=== PATIENT | male | born 1950 | race Caucasian/White ===

== ENCOUNTER 2023-07-09 14:20 | Emergency (ER) | payer MEDICARE, OTHER, SELFPAY ==
[2023-07-09] VITALS (16 sets, daily range): BP systolic 130–144; BP diastolic 71–86; PULSE 59–76; RESP 12–26; TEMP 36.6; O2SAT 95–99; BMI 33.2
--- NOTE | 2023-07-09 14:34 | XR_ITS ---
The [address] [address] Patient Name: YUSEF MELGAR MRN: [id number] date: 1950 Sex: M Assigned Patient Location: ED.MAIN Current Patient Location: ER Accession/Order Number: [id number] Exam Date: 07/09/2023 14:40 Report Date: 07/09/2023 15:04 At the request of: TRE FERNANDEZ Procedure: XR chest 1V EXAM: CHEST 1 VIEW HISTORY: bradycardia, TECHNIQUE: Chest, one view. COMPARISON: None. FINDINGS: Lungs are clear. No focal consolidation, pleural effusion, or pneumothorax. Pulmonary vasculature is within normal limits. There is aortic atherosclerosis. Heart size is normal. XR/XR chest 1V IMPRESSION: 1. No acute cardiopulmonary disease. Electronically authenticated by: LAMAR SMILEY Date: 07/09/2023 15:04
--- NOTE | 2023-07-09 14:34 | ECG_ITS ---
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
--- NOTE | 2023-07-09 14:37 | ED_ITS ---
HPI - Dizziness General Chief Complaint: Dizziness Stated Complaint: DIZZINESS Time Seen by Provider: 07/09/23 14:30 Source: patient Mode of arrival: Wheelchair History of Present Illness HPI Narrative: Patient suddenly became dizzy about an hour ago and his HR was noted to be as low as [address] to our ED. He has cardiac history and is concerned about his heart. No headache, visual changes, ringing in the ear. No recent injury to the head or neck and no recent vomiting or abdominal pain. He developed a little diarrhea after taking Augmentin for sinus infection this week. No prior history of dizziness associated with prior sinus infections or URIs. Related Data Home Medications Medication Instructions Recorded Confirmed allopurinol 300 mg tablet 300 mg PO DAILY 07/09/23 07/09/23 amlodipine 10 mg tablet 10 mg PO DAILY 07/09/23 07/09/23 bisoprolol fumarate 5 mg tablet 5 mg PO DAILY 07/09/23 07/09/23 fluticasone propionate 50 1 spray intranasal DAILY PRN 07/09/23 07/09/23 mcg/actuation nasal allergy symptoms spray,suspension (24 Hour Allergy Relief) furosemide 20 mg tablet 20 mg PO DAILY 07/09/23 07/09/23 glimepiride 4 mg tablet 4 mg PO BID 07/09/23 07/09/23 losartan 100 mg tablet 100 mg PO DAILY 07/09/23 07/09/23 omeprazole 40 mg capsule,delayed 40 mg PO DAILY 07/09/23 07/09/23 release pioglitazone 30 mg tablet 30 mg PO DAILY 07/09/23 07/09/23 rosuvastatin 10 mg tablet 10 mg PO DAILY 07/09/23 07/09/23 Allergies Allergy/AdvReac Type Severity Reaction Status Date / Time ciprofloxacin [From Cipro] Allergy Severe Verified 07/09/23 14:36 erythromycin base Allergy Severe Verified 07/09/23 14:36 lisinopril Allergy Severe Verified 07/09/23 14:36 Exam Narrative Exam Narrative: Nurses notes and vital signs reviewed and patient is not hypoxic. afebrile General: Well-appearing and in no apparent distress. Skin: Warm, dry, no pallor noted. No rash. Head: Normocephalic, atraumatic. Ears, Nose, Mouth, and Throat: Oral mucosa is moist Cardiovascular: Regular Rate and Rhythm without murmur, gallop or rub. Respiratory: No accessory muscle use or respiratory distress. Lungs are clear to auscultation, no wheezing, rales or rhonchi Musculoskeletal: normal ROM, no calf or popliteal tenderness, no lower extremity edema/swelling Neurological: A&O x4. No cranial nerve dysfunction observed. No truncal ataxia. Moves all extremities. Sensation intact. Psychiatric: Cooperative and interactive. Normal mood and affect. Constitutional Vital Signs, click to edit/add: Last Vital Signs Temp 97.9 F 07/09/23 14:28 Pulse 65 07/09/23 15:30 Resp 18 07/09/23 15:30 BP 135/71 07/09/23 14:58 Pulse Ox 96 07/09/23 14:50 O2 Del Method Room Air 07/09/23 14:28 Course Vital Signs Vital signs: Vital Signs Temperature 97.9 F 07/09/23 14:28 Pulse Rate 69 07/09/23 14:28 Respiratory Rate 16 07/09/23 14:28 Blood Pressure 140/72 07/09/23 14:28 Pulse Oximetry 99 07/09/23 14:28 Oxygen Delivery Method Room Air 07/09/23 14:28 Temperature 97.9 F 07/09/23 14:28 Pulse Rate 65 07/09/23 15:30 Respiratory Rate 18 07/09/23 15:30 Blood Pressure 135/71 07/09/23 14:58 Pulse Oximetry 96 07/09/23 14:50 Oxygen Delivery Method Room Air 07/09/23 14:28 MDM - Dizziness MDM Narrative Medical decision making narrative: Patient was placed on monitor and storage bin tender and EKG obtained. Blood drawn and sent for evaluation. CXR obtained. Orthostatics were negative. CBC normal. BMP notable for slightly elevated BUN and creatinine at 25 and 1.77. Normal troponin. BNP elevated just over 1700. CXR negative for acute cardiopulmonary abnormality. Patient informed of test results. Patient remained with HR greater than 60 in our ED and was without symtoms or complaint while being evaluated. Patient will call his PCP for followup - although he is likely changing groups since Dr Steele's replacement is leaving. He was also given cardiology follow up information. Discussed ED return if his symptomatic bradycardia returns. Lab Data Attestation: I reviewed the patient's lab results. Labs: Lab Results 07/09/23 Range/Units 14:37 WBC 10.1 (4.0-11.0) 10^3/uL RBC 4.32 L (4.70-6.10) 10^6/uL Hgb 12.4 L (14.0-18.0) g/dL Hct 39.3 L (42.0-54.0) % MCV 91.0 (80.0-94.0) fL MCH 28.7 (25.9-34.0) pg MCHC 31.6 (29.9-35.2) g/dL RDW 14.9 (11.0-15.0) % Plt Count 392 (150-450) 10^3/uL MPV 10.1 (9.5-13.5) fL Neut % (Auto) 78.3 H (43.0-75.0) % Lymph % (Auto) 13.1 L (20.5-60.0) % [place] % (Auto) 7.2 (1.7-12.0) % Eos % (Auto) 0.8 L (0.9-7.0) % Baso % (Auto) 0.3 (0.2-2.0) % Neut # (Auto) 7.9 H (1.4-6.5) 10^3/uL Lymph # (Auto) 1.3 (1.2-3.8) 10^3/uL [place] # (Auto) 0.7 (0.3-0.8) 10^3/uL Eos # (Auto) 0.1 (0.0-0.7) 10^3/uL Baso # (Auto) 0.0 (0.0-0.1) 10^3/uL Abs Immat Gran (auto) 0.03 (0.00-0.03) 10^3/uL Imm/Tot Granulo (auto) 0.3 (0.0-0.5) % Sodium 139 (136-145) mmol/L Potassium 4.5 (3.5-5.1) mmol/L Chloride 106 (98-107) mmol/L Carbon Dioxide 24.3 (21.0-32.0) mmol/L Anion Gap 13.2 BUN 25.0 H (7.0-18.0) mg/dL Creatinine 1.77 H (0.70-1.30) mg/dL Est GFR ( Amer) 46 L (>=60) Est GFR (Non-Af Amer) 38 L (>=60) BUN/Creatinine Ratio 14.1 Glucose 99 (74-106) mg/dL Calcium 8.8 (8.5-10.1) mg/dL Troponin I High Sens 9.6 (4.0-76.1) pg/mL NT-Pro-B Natriuret Pep 1733.0 H* (<=900.0) pg/mL Imaging Data Chest x-ray: Radiologist's impression: ITS Impressions Chest X-Ray 07/09/23 14:34 IMPRESSION: 1. No acute cardiopulmonary disease. Electronically authenticated by: LAMAR SMILEY Date: 07/09/2023 15:04 ECG Data Attestation: I personally reviewed and interpreted this ECG as follows: Interpretation: EKG interpretation: Emergency Department physician interpretation. Normal sinus rhythm at 66bpm. Normal axis, shortened RR interval. No ST segment elevation or depression. Discharge Plan Discharge Chief Complaint: Dizziness Clinical Impression: Dizziness, Paroxysmal cardiac arrhythmia, Bradycardia with 31-40 beats per minute Patient Disposition: Home, Self-Care Time of Disposition Decision: 16:02 Prescriptions / Home Meds: No Action allopurinol 300 mg tablet 300 mg PO DAILY amlodipine 10 mg tablet 10 mg PO DAILY bisoprolol fumarate 5 mg tablet 5 mg PO DAILY furosemide 20 mg tablet 20 mg PO DAILY glimepiride 4 mg tablet 4 mg PO BID losartan 100 mg tablet 100 mg PO DAILY omeprazole 40 mg capsule,delayed release(DR/EC) 40 mg PO DAILY pioglitazone 30 mg tablet 30 mg PO DAILY rosuvastatin 10 mg tablet 10 mg PO DAILY fluticasone propionate [24 Hour Allergy Relief] 50 mcg/actuation spray,suspension 1 spray intranasal DAILY PRN (Reason: allergy symptoms) Rx Instructions: administer into each nostril Instructions: Bradycardia (ED), Dizziness (ED) Stand Alone Forms: Portal Instructions Referrals: KIM ZAVALA [Physician] - As soon as possible
[2023-07-09 15:02] LABS: Basophils Percent Auto 0.3 % (0.2-2.0); Eosinophils Absolute Auto 0.1 10^3/uL (0.0-0.7); Eosinophils Percent Auto 0.8 % (0.9-7.0); Hematocrit 39.3 % (42.0-54.0); Hemoglobin 12.4 g/dL (14.0-18.0); Immature Granulocytes Abs Auto 0.03 10^3/uL (0.00-0.03); Immature Granulocytes Pct Auto 0.3 % (0.0-0.5); Lymphocytes Absolute Auto 1.3 10^3/uL (1.2-3.8); Lymphocytes Percent Auto 13.1 % (20.5-60.0); Mean Corpuscular HGB Conc 31.6 g/dL (29.9-35.2); Mean Corpuscular Hemoglobin 28.7 pg (25.9-34.0); Mean Platelet Volume 10.1 fL (9.5-13.5); Monocytes Absolute Auto 0.7 10^3/uL (0.3-0.8); Monocytes Percent Auto 7.2 % (1.7-12.0); Neutrophils Absolute Auto 7.9 10^3/uL (1.4-6.5); Neutrophils Percent Auto 78.3 % (43.0-75.0); Platelet Count 392 10^3/uL (150-450); Red Blood Count 4.32 10^6/uL (4.70-6.10); Red Cell Distribution Width 14.9 % (11.0-15.0); White Blood Count 10.1 10^3/uL (4.0-11.0)
[2023-07-09 15:18] LABS: Anion Gap 13.2; BUN Creatinine Ratio 14.1; Calcium 8.8 mg/dL (8.5-10.1); Carbon Dioxide 24.3 mmol/L (21.0-32.0); Chloride 106 mmol/L (98-107); Estimated GFR (African America 46 (>=60); Estimated GFR (Non-African Ame 38 (>=60); Glucose 99 mg/dL (74-106); Potassium 4.5 mmol/L (3.5-5.1); Sodium 139 mmol/L (136-145); Troponin I High Sensitivity 9.6 pg/mL (4.0-76.1)
== END 2023-07-09 16:13 | disposition home or self-care (01) ==
PROVIDERS: Emergency Provider Emergency Medicine; PCP Family Medicine
DX: R42 Dizziness and giddiness (principal); R00.1 Bradycardia, unspecified; Z79.899 Other long term (current) drug therapy
CPT/HCPCS: 36415; 71045; 80048; 83880; 84484; 85025; 93005; 99285

== ENCOUNTER 2023-07-09 21:04 | Observation (INO) | payer MEDICARE, OTHER, SELFPAY ==
[2023-07-09] VITALS (25 sets, daily range): BP systolic 140–175; BP diastolic 61–84; PULSE 68–94; RESP 10–30; TEMP 36.4; O2SAT 95–98; BMI 33.2
--- NOTE | 2023-07-09 21:32 | ECG_ITS ---
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
--- NOTE | 2023-07-09 21:39 | PC.NURSE ---
patient seen earier today for low heart rate. patient sent home. patient came back because of [employer] saying he had a low heart rate. denies chest pain or SOB. patient stated it felt like a fluttering but it has resolved
[2023-07-09 21:50] LABS: Basophils Percent Auto 0.3 % (0.2-2.0); Eosinophils Absolute Auto 0.1 10^3/uL (0.0-0.7); Eosinophils Percent Auto 1.1 % (0.9-7.0); Hematocrit 39.7 % (42.0-54.0); Hemoglobin 12.4 g/dL (14.0-18.0); Immature Granulocytes Abs Auto 0.03 10^3/uL (0.00-0.03); Immature Granulocytes Pct Auto 0.3 % (0.0-0.5); Lymphocytes Percent Auto 19.7 % (20.5-60.0); Mean Corpuscular HGB Conc 31.2 g/dL (29.9-35.2); Mean Corpuscular Hemoglobin 28.6 pg (25.9-34.0); Mean Corpuscular Volume 91.7 fL (80.0-94.0); Mean Platelet Volume 10.2 fL (9.5-13.5); Monocytes Absolute Auto 0.8 10^3/uL (0.3-0.8); Neutrophils Absolute Auto 7.3 10^3/uL (1.4-6.5); Neutrophils Percent Auto 70.6 % (43.0-75.0); Platelet Count 377 10^3/uL (150-450); Red Blood Count 4.33 10^6/uL (4.70-6.10); White Blood Count 10.3 10^3/uL (4.0-11.0)
[2023-07-09 22:08] LABS: Anion Gap 14.1; BUN Creatinine Ratio 15.4; Carbon Dioxide 24.5 mmol/L (21.0-32.0); Chloride 108 mmol/L (98-107); Estimated GFR (African America 51 (>=60); Estimated GFR (Non-African Ame 42 (>=60); Glucose 177 mg/dL (74-106); Potassium 4.6 mmol/L (3.5-5.1); Sodium 142 mmol/L (136-145); Troponin I High Sensitivity 9.7 pg/mL (4.0-76.1)
[2023-07-10] VITALS (21 sets, daily range): BP systolic 130–159; BP diastolic 70–86; PULSE 67–81; RESP 15–29; TEMP 36.3–36.7; O2SAT 95–98; BMI 34.3
--- OUTSIDE RECORDS SUMMARY | 2023-07-10 01:13 | XMS_ITS | CCD ---
Author Name Unknown Address [address] [place] [address] Organization [facility] Care Team Providers Care Lead Cargo Mover Name Role Phone PHYSICIAN, DEFAULT Admitting Unavailable PHYSICIAN, DEFAULT Attending Unavailable Vanessa Steele Unavailable [phone] Unavailable Unavailable CEDRIC, DR MENDEZ Primary Care Unavailable DONNA, DR HURLEY Consulting Unavailable DONNA, DR HURLEY Procedure Practitioner Unava ilSHAIKH Nick Admitting Unavailable SHAIKH ZUNIGA Attending Unavailable ROS, DR CINDI Ackerman Consulting Unavailable PAY, DR MCKINNON Consulting Unavailable RACHEAL ROSAS Consulting Unavailable CINDI RYAN Consulting Unavailable SHAIKH ZUNIGA Consulting Unavailable DONNA, DR HURLEY Consulting Unavailable DONNA, DR HURLEY Admitting Unavailable DONNA, DR HURLEY Attending Unavailable MIQUEL HAWKINS Primary Care Unavailable CEDRIC, DR MENDEZ Attending Unavailable CEDRIC, DR MENDEZ Admitting Unavailable JESUS, DR MARCELLO Charles Consulting Unavailable CEDRIC, DR MENDEZ Primary Care Unavailable CEDRIC, DR MENDEZ Consulting Unavailable MIQUEL HAWKINS Primary Care Unavailable DONNA, DR HURLEY Consulting Unavailable DONNA, DR HURLEY Admitting Unavailable DONNA, DR HURLEY Attending Unavailable CONCEPCION GEORGE Consulting Unavailable ROSMIQUEL OROZCO Consulting Unavailable Dr. Neftali Knowles Admitting Unavailable Benson, Dr. Neftali Cormier Attending Unavailable Vanessa Steele Primary Care Unavailabl e Petek, Ms. Lawson Attending Unavailable Rostocil, Ms. Jorge Referring Unavailable Vanessa Steele Primary Care Unavailabl e Petamina, Ms. Lawson Attending Unavailable Vanessa Steele Primary Care Unavailabl e Vanessa Steele Referring Unavailabl e Mohamed, Dr. Neftali Cormier Admitting Unavailable Mohpamela, Dr. Neftali Cormier Attending Unavailable Benson, Dr. Neftali Cormier Admitting Unavailable Mohpamela, Dr. Neftali Cormier Attending Unavailable Xavi Thompson Referring Unavailable Vanessa Steele Primary Care Unavailabl e Benson, Neftali Attending Unavailable Dinary, Fazel Admitting Unavailable Dinary, Fazel Attending Unavailable Cedric, Dr. Vanessa hWitley Referring Unavai Renea Duran DO Primary Care Provider [phone] RENEA YING Attending Unavailable NEFTALI STARR Attending Unavailab JAZLYN Palm Referring Unavailable RENEA YING Primary Care Unavailable SAM PADILLA Attending Unavailable JAZLYN MCARTHUR Referring Unavailable RENEA YING Primary Care Unavailable Allergies Allergy Classification Reported Allergen(s) Allergy Type Date of Onset Reaction(s) Facility Angiotensin Converting Enzyme (GODWIN) Inhibitors (3 sources) Lisinopril; Translations: [Lisinopril TABS] [facility]: Quinolones (antibiotic) (3 sources) Ciprofloxacin; Translations: [ciprofloxacin] [facility]: (16 sources) Ciprofloxacin; Translations: [ciprofloxacin] Drug Allergy 3 Unknown, Other [facility] (14 sources) Lisinopril; Translations: [Lisinopril TABS] Drug Allergy 3 Unknown, [facility] Work Phone: (3 sources) Amino Acids; Translations: [LISINOPRIL] Drug Allergy 1 [facility] (1 source) Ciprofloxacin Drug Allergy [facility] (1 source) Erythromycin Drug Allergy [facility] (6 sources) Erythromycin; Translations: [ERYTHROMYCIN] Drug Allergy 3 Unknown, GI bleeding [facility] Work Phone: Medications Current Medications Medication Drug Class(es) Dates Sig (Normalized) Sig (Original) allopurinol 300 mg oral tablet (17 sources) Xanthine Oxidase Inhibitor take 1 tablet by mouth once daily allopurinol (Zyloprim) 300 mg tablet Take 1 tablet (300 mg) by mouth once daily. 0 Active Allopurinol 300 MG Oral Tablet Quantity: 0 Refills: 0 Ordered: 08-Jan-2021 DO Active amLODIPine 10 mg oral tablet (17 sources) Dihydropyridine Calcium Channel Nancy take 1 tablet by mouth once daily amLODIPine (Norvasc) 10 mg tablet Take 1 tablet (10 mg) by mouth once daily. 0 Active amLODIPine Besyl ate 10 MG Oral Tablet Quantity: 0 Refills: 0 Ordered: 08-Jan-2021 DO Active bisoprolol fumarate 5 mg oral tablet (17 sources) beta-Adrenergic Nancy take 1 tablet by mouth once daily bisoprolol (Zebeta) 5 mg tablet Take 1 tablet (5 mg) by mouth once daily. 0 Active Bisoprolol Fumar ate 5 MG Oral Tablet Quantity: 0 Refills: 0 Ordered: 08-Jan-2021 DO Active fluticasone propionate (ArmonAir Digihaler) 55 mcg/actuation aero powdr breath act w/sensor (4 sources) fluticasone prop ionate (ArmonAir Digihaler) 55 mcg/actuation aero powdr breath act w/sensor Inhale 55 % once daily. 0 Active furosemide 20 mg oral tablet (17 sources) Loop Diuretic take 1 tablet by mouth once daily furosemide (Lasix) 20 mg tablet Take 1 tablet (20 mg) by mouth once daily. 0 Active Furosemide 20 MG Oral Tablet Quantity: 0 Refills: 0 Ordered: 08-Jan-2021 DO Active glimepiride 4 mg oral tablet (17 sources) Sulfonylurea take 1 tablet by mouth twice daily glimepiride (Amaryl) 4 mg tablet Take 1 tablet (4 mg) by mouth 2 times a day. 0 Active Glimepiride 4 MG Oral Tablet Quantity: 0 Refills: 0 Ordered: 08-Jan-2021 DO Active losartan potassium 100 mg oral tablet (17 sources) Angiotensin 2 Receptor Nancy take 1 tablet by mouth once daily losartan (Cozaar) 100 mg tablet Take 1 tablet (100 mg) by mouth once daily. 0 Active Losartan Potassi um 100 MG Oral Tablet Quantity: 0 Refills: 0 Ordered: 08-Jan-2021 DO Active omeprazole 40 mg delayed release oral capsule (20 sources) Proton Pump Inhibitor Start: 01-23-2021 take 1 capsule by mouth twice daily omeprazole (PriLOSEC) [address] capsule Take 1 capsule (40 mg) by mouth 2 times a day. 0 01/23/2021 Active Omeprazole 10 MG Oral Capsule Delayed Release Quantity: 0 Refills: 0 Ordered: 08-Jan-2021 DO Active pioglitazone 30 mg oral tablet (17 sources) Peroxisome Proliferator Receptor alpha Agonist, Peroxisome Proliferator Receptor gamma Agonist, Thiazolidinedione take 1 tablet by mouth once daily pioglitazone (Actos) 30 mg tablet Take 1 tablet (30 mg) by mouth once daily. 0 Active Pioglitazone HCl - 30 MG Oral Tablet Quantity: 0 Refills: 0 Ordered: 08-Jan-2021 DO Active rosuvastatin calcium 10 mg oral tablet (17 sources) HMG-CoA Reductase Inhibitor take 1 tablet by mouth once daily rosuvastatin (Crestor) 10 mg tablet Take 1 tablet (10 mg) by mouth once daily. 0 Active Rosuvastatin Lawson cium 10 MG Oral Tablet Quantity: 0 Refills: 0 Ordered: 08-Jan-2021 DO Active Completed/Discontinued Medications Medication Drug Class(es) Dates Sig (Normalized) Sig (Original) amoxicillin 875 mg / clavulanate 125 mg oral tablet (11 sources) Penicillin-class Antibacterial Start: 01-23-2021 take 1 tablet by mouth every twelve hours Amoxicillin-Pot Clavulanate 875-125 MG Oral Tablet TAKE 1 TABLET EVERY 12 HOURS UNTIL GONE. Quantity: 10 Refills: 0 Ordered: 23-Jan-2021 Irwin Batista MD Start : 23-Jan-2021 Active Fluticasone Propionate CREA (13 sources) Fluticasone Propionate CREA Quantity: 0 Refills: 0 Ordered: 08-Jan-2021 DO Active iohexol (OMNIPaque) 350 mg iodine/mL solution 75 mL (2 sources) Start: 05-26-2023 End: 05-26-2023 iohexol (OMNIPaque) 350 mg iodine/mL solution 75 mL simethicone 66.7 mg/ml oral suspension (2 sources) Start: 06-10-2023 End: 06-10-2023 simethicone (Mylicon) drops sucralfate 1000 mg oral tablet (11 sources) Aluminum Complex Start: 01-23-2021 take 1 tablet by mouth four times daily at bedtime Sucralfate 1 GM Oral Tablet TAKE 1 TABLET 4 TIMES DAILY, BEFORE MEALS AND AT BEDTIME. Quantity: 360 Refills: 2 Ordered: 01-May-2021 Irwin Batista MD Start : 23-Jan-2021 Active Problems Active Problems Problem Classification Problem Date Documented Date Episodic/Chronic Biliary tract disease (3 sources) Acute cholecystitis; Translations: [ACUTE CHOLECYSTITIS] Onset: 06-04-2021 Episodic Cancer of other GI organs; 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; 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] Onset: 04-29-2022 Chronic Diabetes mellitus without complication (2 sources) Type 2 diabetes mellitus without complications; Translations: [TYPE 2 DM WITHOUT COMPLICATIONS] Onset: 12-12-2020 Chronic Disorders of lipid metabolism (1 source) Hyperlipidemia, unspecified; Translations: [HYPERLIPIDEMIA UNSPECIFIED] Onset: 12-12-2020 Chronic Diverticulosis and diverticulitis (1 source) Diverticulosis of large intestine without perforation or abscess without bleeding; Translations: [DVRTCLOS LG INT NO PERF/ABSC W/O BL] Onset: 12-12-2020 Chronic Esophageal disorders (2 sources) Gastro-esophageal reflux disease without esophagitis; Translations: [GERD WITHOUT ESOPHAGITIS] Onset: 12-12-2020 Chronic Essential hypertension (2 sources) Essential (primary) hypertension; Translations: [ESSENTIAL PRIMARY HYPERTENSION] Onset: 12-12-2020 Chronic Gastritis and duodenitis (1 source) Unspecified chronic gastritis without bleeding; Translations: [Unspecified chronic gastritis without bleeding] Onset: 04-29-2022 Chronic Hyperplasia of prostate (13 sources) Benign prostatic hypertrophy with outflow obstruction; Translations: [Hypertrophy (benign) of prostate with urinary obstruction and other lower urinary tract symptoms (LUTS)] Chronic Malignant neoplasm without specification of site (20 sources) Primary malignant neuroendocrine neoplasm of duodenum; 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] Onset: 12-12-2020 Chronic Other aftercare (1 source) Other senior care (current) drug therapy; Translations: [OTH DATA ACQUISITION TECHNICIAN CURRENT DRUG THERAPY] Onset: 06-12-2021 Episodic Other and unspecified benign neoplasm (1 source) Benign carcinoid tumor of the duodenum; Translations: [Benign carcinoid tumor of the duodenum] Onset: 05-12-2022 Episodic Other disorders of stomach and duodenum (1 source) Other diseases of stomach and duodenum; Translations: [Other diseases of stomach and duodenum] Onset: 05-12-2022 Episodic Other liver diseases (2 sources) Liver disease, unspecified; Translations: [Liver disease, unspecified] Onset: 05-20-2021 Chronic Other liver diseases (1 source) Abnormal levels of other serum enzymes; Translations: [ABNORMAL LEVELS OTHER SERUM ENZYMES] Onset: 06-12-2021 Episodic Residual codes; unclassified (1 source) Personal history of other specified conditions; Translations: [PERSONAL HISTORY OTH SPEC CONDITION] Onset: 06-12-2021 Episodic Rheumatoid arthritis and related disease (1 source) Rheumatoid arthritis, unspecified; Translations: [Rheumatoid arthritis, unspecified] Onset: 04-29-2022 Chronic Septicemia (except in labor) (1 source) Other Gram-negative sepsis; Translations: [OTHER GRAM-NEGATIVE SEPSIS] Onset: 06-12-2021 Episodic Unclassified (1 source) CONTACT W/AND (SUSP) EXPOS COVID-19; Translations: [CONTACT W/AND (SUSP) EXPOS COVID-19] Onset: 06-12-2021 Unclassified (1 source) Gastric intestinal metaplasia, unspecified; Translations: [Gastric intestinal metaplasia, unspecified] Onset: 04-29-2022 Past or Other Problems Problem Classification Problem Date Documented Da te Episodic/Chronic Abdominal pain (5 sources) Right upper quadrant pain; Translations: [Unspecified abdominal pain] Onset: 06-18-2020 Episodic Cancer; other and unspecified primary (1 source) Personal history of malignant carcinoid tumor of small intestine; Translations: [Personal history of malignant carcinoid tumor of sm int] Onset: 04-29-2022 Episodic Deficiency and other anemia (1 source) Anemia, unspecified; Translations: [Anemia, unspecified] Onset: 04-29-2022 Episodic Gastrointestinal hemorrhage (1 source) Hemorrhage of anus and rectum; Translations: [HEMORRHAGE OF ANUS AND RECTUM] Onset: 12-12-2020 Episodic Other aftercare (2 sources) intermediate manager (current) use of oral hypoglycemic drugs; Translations: [DATA ACQUISITION TECHNICIAN USE ORAL HYPOGLYCEMIC DX] Onset: 12-12-2020 Episodic Other aftercare (2 sources) Encounter for follow-up examination after completed treatment for malignant neoplasm; Translations: [Encntr for follow-up exam after trtmt for malignant neoplasm] Onset: 04-29-2022 Episodic Other and unspecified benign neoplasm (1 source) Benign neoplasm of ascending colon; Translations: [BENIGN NEOPLASM OF ASCENDING COLON] Onset: 12-12-2020 Episodic Other and unspecified benign neoplasm (1 source) Polyp of colon; Translations: [POLYP OF COLON] Onset: 12-12-2020 Episodic Other and unspecified benign neoplasm (1 source) Polyp of stomach and duodenum; Translations: [Polyp of stomach and duodenum] Onset: 04-29-2022 Episodic Other gastrointestinal disorders (4 sources) Dysphagia, unspecified; Translations: [DYSPHAGIA UNSPECIFIED] Onset: 11-28-2020 Episodic Other screening for suspected conditions (not mental disorders or infectious disease) (15 sources) Patient encounter status; Translations: [Screening for malignant neoplasms of prostate] Onset: 06-12-2021 Episodic Screening and history of mental health and substance abuse codes (2 sources) Personal history of nicotine dependence; Translations: [PERSONAL HISTORY OF NICOTINE DEPEND] Onset: 06-12-2021 Episodic Results Test Name Value Interpretation Reference Range Facility [facility] 06-10-2023 Esophagogastroduodenosco py Table formatting from the original result was not included. Normal [facility] EGD Study observation Narrat osvaldo 06-10-2023 Table formatting fro m the original result was not included. Impression The 2nd part of the duodenum appeared normal. Single 8 mm nodule was visualized in the duodenal bulb; performed cold forceps biopsy with partial removal; placed 1 clip successfully 1 cm hiatal hernia The stomach appeared normal. Findings The 2nd part of the duodenum appeared normal. Single 8 mm nodule was visualized in the duodenal bulb; performed cold forceps biopsy with partial removal; placed 1 clip successfully (clip is MRI conditional). Patient with h/o duodenal NET s/p resection in 2020. 1 cm hiatal hernia The stomach appeared normal. Recommendation Await pathology results Based on the biopsy results you will need endoscopic ultrasound and possibly resection ( EMR) Follow up with the oncologist. Call with questions. Indication Primary malignant neuroendocrine neoplasm of duodenum (CMS/HCC) Staff Staff Role No Staff Documented Medications See Anesthesia Record. Preprocedure A history and physical has been performed, and patient medication allergies have been reviewed. The patient's tolerance of previous anesthesia has been reviewed. The risks and benefits of the procedure and the sedation options and risks were discussed with the patient. All questions were answered and informed consent obtained. Details of the Procedure The patient underwent monitored anesthesia care, which was administered by an anesthesia professional. The patient's blood pressure, ECG, ETCO2, heart rate, level of consciousness, oxygen and respirations were monitored throughout the procedure. The scope was introduced through the mouth and advanced to the second part of the duodenum. Retroflexion was performed in the cardia. The patient experienced no blood loss. The procedure was not difficult. The patient tolerated the procedure well. There were no apparent adverse events. Events Procedure Events Event Event Time ENDO SCOPE IN TIME 06/10/2023 8:54 AM ENDO SCOPE OUT TIME 06/10/2023 9:04 AM Specimens ID Type Source Tests Collected by Time 1 : NODULE Tissue DUODENAL BULB BIOPSY SURGICAL PATHOLOGY EXAM Mayelin Page 06/10/2023 0859 Procedure Location [facility] [id number] [facility] [id number] Referring Provider Jazlyn Mcarthur, [employer]-video operator [id number] [address] [place] [place] [address] Procedure Provider Sam Padilla MD [facility] Work Phone: [facility] Work Phone: Radiology Study observation (narrative) [facility] Work Phone: Glucose Test strip manual (B ld) [Mass/Vol]on 06-10-2023 Glucose [Mass/Vol] 113 mg/dL High 74-99 [facility] Comment on above: Performed By: #### [phone] #### OLIMPIA WARE ([id number]) [facility] ([facility]) [id number] [place] [phone] Glucose [Mass/Vol] 113 mg/dL High 74 - 99 mg/dL [facility] Interpretation and review of laboratory results Abnormal [facility] Surgical pathology studyon 1 08-11-2022 Surgical pathology study Pathology repor t.total SEE COMMENT Surgical Pathology Case: [id number] Authorizing Provider: Sam Padilla MD Collected: 06/10/2023 0859 Ordering Location: [facility] Received: 06/10/2023 0920 Pathologist: Chucho Santacruz MD Specimen: DUODENAL BULB BIOPSY, NODULE Path report.final diagnosis SEE COMMENT A. DUODENAL BULB BIOPSY: Fragments of small intestinal mucosa with no pathologic diagnosis Laboratory comment By the signature on this report, the individual or group listed as making the Final Interpretation/Diagnosis certifies that they have reviewed this case. Path report.gross observation SEE COMMENT Received in formalin, labeled with the patient's name and hospital number and 1 , is a fragment of deal, soft tissue measuring 0.4 x 0.3 x 0.2 cm. The specimen is submitted in toto in one cassette. [facility] CT Chest and Abdomen and Pel vis W contrast Kristie 05-27-2023 CHEST: 1. Nodule superior segment left lower lobe. Three-month follow-up noncontrast CT scanning is recommended as no prior studies are available. 2. No mediastinal or hilar lymphadenopathy. ABDOMEN-PELVIS: 1. No evidence of liver metastasis. 2. No ascites or retroperitoneal lymphadenopathy. 3. Hepatic steatosis. 4. Multiple left renal cysts with increase in size of a cyst in the upper pole lateral aspect. 5. 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 Signed by: Juanjose Walters 05/27/2023 11:47 AM Dictation workstation: [id number] MMODAL Interpreted By: Juanjose Jefferson, STUDY: CT CHEST ABDOMEN PELVIS W IV CONTRAST; 05/26/2023 10:16 am INDICATION: 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 COMPARISON: CT abdomen 12/25/2020 ACCESSION NUMBER(S): [id number] ORDERING CLINICIAN: JAZLYN MCARTHUR TECHNIQUE: Contiguous axial CT images were obtained at 3mm slice thickness through the chest, abdomen and pelvis following intravenous contrast administration. Coronal and sagittal reconstructions at 3 mm slice thickness were then performed. 75 mL Omnipaque 350 were administered without immediate complication. FINDINGS: Restaging scan CHEST: CHEST WALL AND LOWER NECK: Evaluation of the visualized neck base demonstrates no gross mass or lymphadenopathy. MEDIASTINUM AND KEYONA: There is no gross axillary, keyona or mediastinal lymphadenopathy identified. HEART: The heart is within normal limits for size. No pericardial effusion is identified. Scattered atherosclerotic calcifications are seen in the coronary arteries. VESSELS: The thoracic aorta is normal in size, with calcification in the aortic arch. Pulmonary arteries are normal in size. LUNG/PLEURA/LARGE AIRWAYS: The trachea and central bronchi are normal in size. No atelectasis, consolidation or effusion. A 7 mm nodule is seen, in the superior segment of the left lower lobe at sagittal image 91 and axial image 118/281. Only comparison study available is a PET-CT study of 01/11/2021, where resolution is not as good as the present CT study, but no nodule is discernible on that examination. ABDOMEN: LIVER: Decreased density is seen throughout the liver consistent with hepatic steatosis. No focal hepatic mass lesion. BILE DUCTS: No intra or extrahepatic biliary dilatation is identified. GALLBLADDER: Surgically absent. PANCREAS: The pancreas is within normal limits for appearance, without evidence of focal masses. SPLEEN: The spleen is normal in size. No focal splenic mass is seen. ADRENAL GLANDS: The right adrenal is normal in size and shape. There is a known nodule, in the left adrenal measuring 1.4 x 1.5 cm known to be an adenoma by a prior MRI scan. No change in size of this nodule from the previous examination of 12/25/2020. KIDNEYS AND URETERS: Multiple left simple renal cysts are present. Increase in size of a cyst is seen in the lateral aspect of the upper pole measuring about 4.4 cm in size compared to 2.2 cm previously. The ureters are normal in caliber. PELVIS: BLADDER: The urinary bladder is not adequately distended. REPRODUCTIVE ORGANS: The prostate is within normal limits for appearance. BOWEL: Marked diverticulosis of the sigmoid colon is present without diverticulitis. The colon and small bowel are within normal limits for course, caliber and appearance, without evidence of wall thickening or obstruction. The appendix is not visualized. VESSELS: Scattered atherosclerotic calcifications are seen throughout the infrarenal abdominal aorta and iliac arteries. The no aneurysm. The IVC is unremarkable. PERITONEUM/RETROPERITONEU M/LYMPH NODES: There is no free intraperitoneal air or free fluid identified. No gross mesenteric or retroperitoneal lymphadenopathy is identified. A 1.5 cm left external iliac lymph node is unchanged in size and shape from 01/11/2021. BONE AND SOFT TISSUE: No aggressive bone lesion. Degenerative changes of the lumbar spine and the sacroiliac joints are present. A small fat containing umbilical hernia is present. [facility] MM[facility]AL Juanjose Walters MD - 05/27/2023 Interpreted By: Juanjose Walters, STUDY: CT CHEST ABDOMEN PELVIS W IV CONTRAST; 05/26/2023 10:16 am INDICATION: 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 COMPARISON: CT abdomen 12/25/2020 ACCESSION NUMBER(S): [id number] ORDERING CLINICIAN: JAZLYN MCARTHUR TECHNIQUE: Contiguous axial CT images were obtained at 3mm slice thickness through the chest, abdomen and pelvis following intravenous contrast administration. Coronal and sagittal reconstructions at 3 mm slice thickness were then performed. 75 mL Omnipaque 350 were administered without immediate complication. FINDINGS: Restaging scan CHEST: CHEST WALL AND LOWER NECK: Evaluation of the visualized neck base demonstrates no gross mass or lymphadenopathy. MEDIASTINUM AND KEYONA: There is no gross axillary, keyona or mediastinal lymphadenopathy identified. HEART: The heart is within normal limits for size. No pericardial effusion is identified. Scattered atherosclerotic calcifications are seen in the coronary arteries. VESSELS: The thoracic aorta is normal in size, with calcification in the aortic arch. Pulmonary arteries are normal in size. LUNG/PLEURA/LARGE AIRWAYS: The trachea and central bronchi are normal in size. No atelectasis, consolidation or effusion. A 7 mm nodule is seen, in the superior segment of the left lower lobe at sagittal image 91 and axial image 118/281. Only comparison study available is a PET-CT study of 01/11/2021, where resolution is not as good as the present CT study, but no nodule is discernible on that examination. ABDOMEN: LIVER: Decreased density is seen throughout the liver consistent with hepatic steatosis. No focal hepatic mass lesion. BILE DUCTS: No intra or extrahepatic biliary dilatation is identified. GALLBLADDER: Surgically absent. PANCREAS: The pancreas is within normal limits for appearance, without evidence of focal masses. SPLEEN: The spleen is normal in size. No focal splenic mass is seen. ADRENAL GLANDS: The right adrenal is normal in size and shape. There is a known nodule, in the left adrenal measuring 1.4 x 1.5 cm known to be an adenoma by a prior MRI scan. No change in size of this nodule from the previous examination of 12/25/2020. KIDNEYS AND URETERS: Multiple left simple renal cysts are present. Increase in size of a cyst is seen in the lateral aspect of the upper pole measuring about 4.4 cm in size compared to 2.2 cm previously. The ureters are normal in caliber. PELVIS: BLADDER: The urinary bladder is not adequately distended. REPRODUCTIVE ORGANS: The prostate is within normal limits for appearance. BOWEL: Marked diverticulosis of the sigmoid colon is present without diverticulitis. The colon and small bowel are within normal limits for course, caliber and appearance, without evidence of wall thickening or obstruction. The appendix is not visualized. VESSELS: Scattered atherosclerotic calcifications are seen throughout the infrarenal abdominal aorta and iliac arteries. The no aneurysm. The IVC is unremarkable. PERITONEUM/RETROPERITONEU M/LYMPH NODES: There is no free intraperitoneal air or free fluid identified. No gross mesenteric or retroperitoneal lymphadenopathy is identified. A 1.5 cm left external iliac lymph node is unchanged in size and shape from 01/11/2021. BONE AND SOFT TISSUE: No aggressive bone lesion. Degenerative changes of the lumbar spine and the sacroiliac joints are present. A small fat containing umbilical hernia is present. IMPRESSION: CHEST: 1. Nodule superior segment left lower lobe. Three-month follow-up noncontrast CT scanning is recommended as no prior studies are available. 2. No mediastinal or hilar lymphadenopathy. ABDOMEN-PELVIS: 1. No evidence of liver metastasis. 2. No ascites or retroperitoneal lymphadenopathy. 3. Hepatic steatosis. 4. Multiple left renal cysts with increase in size of a cyst in the upper pole lateral aspect. 5. 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 COMPARISON: CT abdomen 12/25/2020 ACCESSION NUMBER(S): [id number] ORDERING CLINICIAN: JAZLYN MCARTHUR TECHNIQUE: Contiguous axial CT images were obtained at 3mm slice thickness through the chest, abdomen and pelvis following intravenous contrast administration. Coronal and sagittal reconstructions at 3 mm slice thickness were then performed. 75 mL Omnipaque 350 were administered without immediate complication. FINDINGS: Restaging scan CHEST: CHEST WALL AND LOWER NECK: Evaluation of the visualized neck base demonstrates no gross mass or lymphadenopathy. MEDIASTINUM AND KEYONA: There is no gross axillary, keyona or mediastinal lymphadenopathy identified. HEART: The heart is within normal limits for size. No pericardial effusion is identified. Scattered atherosclerotic calcifications are seen in the coronary arteries. VESSELS: The thoracic aorta is normal in size, with calcification in the aortic arch. Pulmonary arteries are normal in size. LUNG/PLEURA/LARGE AIRWAYS: The trachea and central bronchi are normal in size. No atelectasis, consolidation or effusion. A 7 mm nodule is seen, in the superior segment of the left lower lobe at sagittal image 91 and axial image 118/281. Only comparison study available is a PET-CT study of 01/11/2021, where resolution is not as good as the present CT study, but no nodule is discernible on that examination. ABDOMEN: LIVER: Decreased density is seen throughout the liver consistent with hepatic steatosis. No focal hepatic mass lesion. BILE DUCTS: No intra or extrahepatic biliary dilatation is identified. GALLBLADDER: Surgically absent. PANCREAS: The pancreas is within normal limits for appearance, without evidence of focal masses. SPLEEN: The spleen is normal in size. No focal splenic mass is seen. ADRENAL GLANDS: The right adrenal is normal in size and shape. There is a known nodule, in the left adrenal measuring 1.4 x 1.5 cm known to be an adenoma by a prior MRI scan. No change in size of this nodule from the previous examination of 12/25/2020. KIDNEYS AND URETERS: Multiple left simple renal cysts are present. Increase in size of a cyst is seen in the lateral aspect of the upper pole measuring about 4.4 cm in size compared to 2.2 cm previously. The ureters are normal in caliber. PELVIS: BLADDER: The urinary bladder is not adequately distended. REPRODUCTIVE ORGANS: The prostate is within normal limits for appearance. BOWEL: Marked diverticulosis of the sigmoid colon is present without diverticulitis. The colon and small bowel are within normal limits for course, caliber and appearance, without evidence of wall thickening or obstruction. The appendix is not visualized. VESSELS: Scattered atherosclerotic calcifications are seen throughout the infrarenal abdominal aorta and iliac arteries. The no aneurysm. The IVC is unremarkable. PERITONEUM/RETROPERITONEU M/LYMPH NODES: There is no free intraperitoneal air or free fluid identified. No gross mesenteric or retroperitoneal lymphadenopathy is identified. A 1.5 cm left external iliac lymph node is unchanged in size and shape from 01/11/2021. BONE AND SOFT TISSUE: No aggressive bone lesion. Degenerative changes of the lumbar spine and the sacroiliac joints are present. A small fat containing umbilical hernia is present. IMPRESSION: CHEST: 1. Nodule superior segment left lower lobe. Three-month follow-up noncontrast CT scanning is recommended as no prior studies are available. 2. No mediastinal or hilar lymphadenopathy. ABDOMEN-PELVIS: 1. No evidence of liver metastasis. 2. No ascites or retroperitoneal lymphadenopathy. 3. Hepatic steatosis. 4. Multiple left renal cysts with increase in size of a cyst in the upper pole lateral aspect. 5. 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 Signed by: Juanjose Walters 05/27/2023 11:47 AM Dictation workstation: [id number] Normal [facility] CT Chest and Abdomen and Pel vis W contrast Kristie 05-26-2023 Radiology Study observation (narrative) [facility] Work Phone: CBC W Auto Differential pane l (Bld)on 05-22-2023 Basophils (Bld) [#/Vol] 0.04 x10*3/uL Normal 0.00-0.10 [facility] Comment on above: Performed By: #### 5 7021-8 #### OLIMPIA WARE ([id number]) [facility] ([facility]) [address] [place] [address] Basophils/100 WBC (Bld) 0.5 % Normal 0.0-2.[address] [facility] Comment on above: Performed By: #### 5 7021-8 #### OLIMPIA WARE ([id number]) [facility] ([facility]) [address] [place] [address] Eosinophils (Bld) [#/Vol] 0.09 x10*3/uL Normal 0.00-0.40 [facility] Comment on above: Performed By: #### 5 7021-8 #### OLIMPIA WARE ([id number]) [facility] ([facility]) [id number] [place] [address] Eosinophils/100 WBC (Bld) 1.0 % Normal 0.0-6.0 [facility] Comment on above: Performed By: #### 5 7021-8 #### OLIMPIA WARE ([id number]) [facility] ([facility]) [id number] [place] [address] Erythrocyte distribution width (RBC) [Ratio] 15.3 % High 11.5-14.5 [facility] Comment on above: Performed By: #### 5 7021-8 #### OLIMPIA WARE ([id number]) [facility] ([facility]) [address] [place] [address] Hematocrit (Bld) [Volume fraction] 40.4 % Low 41.0-52.0 [facility] Comment on above: Performed By: #### 5 7021-8 #### OLIMPIA WARE ([id number]) [facility] ([facility]) [id number] [place], [place] [id number] Hemoglobin (Bld) [Mass/Vol] 12.7 g/dL Low 13.5-17.5 [facility] Comment on above: Performed By: #### 5 7021-8 #### OLIMPIA WARE ([id number]) [facility] ([facility]) [address] [place] [address] Immature granulocytes (Bld) [#/Vol] 0.04 x10*3/uL Normal 0.00-0.50 [facility] Comment on above: Performed By: #### 5 7021-8 #### OLIMPIA WARE ([id number]) [facility] ([facility]) [address] [place] [address] Immature granulocytes/100 WBC (Bld) 0.5 % Normal 0.0-0.9 [facility] Comment on above: Result Comment: Halima ture Granulocyte Count (IG) includes promyelocytes, myelocytes and metamyelocytes but does not include bands. Percent differential counts (%) should be interpreted in the context of the absolute cell counts (cells/UL). Performed By: #### 5 7021-8 #### OLIMPIA WARE ([id number]) [facility] ([facility]) [address] [place] [address] Lymphocytes (Bld) [#/Vol] 1.47 x10*3/uL Normal 0.80-3.00 [facility] Comment on above: Performed By: #### 5 7021-8 #### OLIMPIA WARE ([id number]) [facility] ([facility]) [address] [place] [address] Lymphocytes/100 WBC (Bld) 17.0 % Normal 13.0-44.0 [facility] Comment on above: Performed By: #### 5 7021-8 #### OLIMPIA WARE ([id number]) [facility] ([facility]) [address] [place] [address] MCH (RBC) [Entitic mass] 28.5 pg Normal 26.0-34.0 [facility] Comment on above: Performed By: #### 5 7021-8 #### OLIMPIA WARE ([id number]) [facility] ([facility]) [address] [place] [address] MCHC (RBC) [Mass/Vol] 31.4 g/dL Low 32.0-36.0 [facility] Comment on above: Performed By: #### 5 7021-8 #### OLIMPIA WARE ([id number]) [facility] ([facility]) [address] [place] [address] MCV (RBC) [Entitic vol] 91 fL Normal 80-100 [facility] Comment on above: Performed By: #### 5 7021-8 #### OLIMPIA WARE ([id number]) [facility] ([facility]) [address] [place] [address] Monocytes (Bld) [#/Vol] 0.54 x10*3/uL Normal 0.05-0.80 [facility] Comment on above: Performed By: #### 5 7021-8 #### OLIMPIA WARE ([id number]) [facility] ([facility]) [address] [place] [address] Monocytes/100 WBC (Bld) 6.2 % Normal 2.0-10.[address] [facility] Comment on above: Performed By: #### 5 7021-8 #### OLIMPIA WARE ([id number]) [facility] ([facility]) [address] [place] [address] Neutrophils (Bld) [#/Vol] 6.48 x10*3/uL High 1.60-5.50 [facility] Comment on above: Result Comment: Perc ent differential counts (%) should be interpreted in the context of the absolute cell counts (cells/uL). Performed By: #### 5 7021-8 #### OLIMPIA WARE ([id number]) [facility] ([facility]) [address] [place] [address] Neutrophils/100 WBC (Bld) 74.8 % Normal 40.0-80.0 [facility] Comment on above: Performed By: #### 5 7021-8 #### OLIMPIA WARE ([id number]) [facility] ([facility]) [address] [place] [address] Nucleated RBC/100 WBC (Bld) [Ratio] 0.0 /100 WBCs Normal 0.0-0.0 [facility] Comment on above: Performed By: #### 5 7021-8 #### OLIMPIA WARE ([id number]) [facility] ([facility]) [address] [place] [address] Platelets (Bld) [#/Vol] 403 x10*3/uL Normal 150-450 [facility] Comment on above: Performed By: #### 5 7021-8 #### OLIMPIA WARE ([id number]) [facility] ([facility]) [address] [place] [address] RBC (Bld) [#/Vol] 4.46 x10*6/uL Low 4.50-5.90 [facility] Comment on above: Performed By: #### 5 7021-8 #### OLIMPIA WARE ([id number]) [facility] ([facility]) [address] [place] [address] WBC (Bld) [#/Vol] 8.7 x10*3/uL Normal 4.4-11.3 [facility] Comment on above: Performed By: #### 5 7021-8 #### OLIMPIA WARE ([id number]) [facility] ([facility]) [address] [place] [address] Comprehensive metabolic 2000 panelon 05-22-2023 Albumin BCP dye [Mass/Vol] 4.1 g/dL Normal 3.4-5.0 [facility] Comment on above: Performed By: #### 2 4323-8 #### OLIMPIA WARE ([id number]) [facility] ([facility]) [address] [place] [address] ALP [Catalytic activity/Vol] 73 U/L Normal 33-136 [facility] Comment on above: Performed By: #### 2 4323-8 #### OLIMPIA WARE ([id number]) [facility] ([facility]) [address] [place] [address] ALT With P-5'-P [Catalytic activity/Vol] 8 U/L Low 10-52 [facility] Comment on above: Result Comment: Kanwal ents treated with Sulfasalazine may generate falsely decreased results for ALT. Performed By: #### 2 4323-8 #### OLIMPIA WARE ([id number]) [facility] ([facility]) [address] [place] [address] Anion gap [Moles/Vol] 12 mmol/L Normal 10-20 [facility] Comment on above: Performed By: #### 2 4323-8 #### OLIMPIA WARE ([id number]) [facility] ([facility]) [address] [place] [address] AST With P-5'-P [Catalytic activity/Vol] 10 U/L Normal 9-39 [facility] Comment on above: Performed By: #### 2 4323-8 #### OLIMPIA WARE ([id number]) [facility] ([facility]) [address] [place] [address] Bilirubin [Mass/Vol] 0.6 mg/dL Normal 0.0-1.2 [facility] Comment on above: Performed By: #### 2 4323-8 #### OLIMPIA WARE ([id number]) [facility] ([facility]) [address] [place] [address] Calcium [Mass/Vol] 9.2 mg/dL Normal 8.6-10.[address] [facility] Comment on above: Performed By: #### 2 4323-8 #### OLIMPIA WARE ([id number]) [facility] ([facility]) [address] [place] [address] Chloride [Moles/Vol] 105 mmol/L Normal 98-107 [facility] Comment on above: Performed By: #### 2 4323-8 #### OLIMPIA WARE ([id number]) [facility] ([facility]) [address] [place] [address] CO2 [Moles/Vol] 25 mmol/L Normal 21-32 [facility] Comment on above: Performed By: #### 2 4323-8 #### OLIMPIA WARE ([id number]) [facility] ([facility]) [address] [place] [address] Creatinine [Mass/Vol] 1.27 mg/dL Normal 0.50-1.30 [facility] Comment on above: Performed By: #### 2 4323-8 #### OLIMPIA WARE ([id number]) [facility] ([facility]) [address] [place] [address] GFR/1.73 sq M.predicted MDRD (S/P/Bld) [Vol rate/Area] 59 mL/min/1.73m*2 Low >60 [facility] Comment on above: Result Comment: Calc ulations of estimated GFR are performed using the 2020 CKD-EPI Study Refit equation without the race variable for the IDMS-Traceable creatinine methods. https://jasn.asnjournals.org/content/early//ASN.711 7337836 Performed By: #### 2 4323-8 #### OLIMPIA WARE ([id number]) [facility] ([facility]) [address] [place] [address] Glucose [Mass/Vol] 140 mg/dL High 74-[address] [facility] Comment on above: Performed By: #### 2 4323-8 #### OLIMPIA WARE ([id number]) [facility] ([facility]) [address] [place] [address] Potassium [Moles/Vol] 4.3 mmol/L Normal 3.5-5.3 [facility] Comment on above: Performed By: #### 2 4323-8 #### OLIMPIA WARE ([id number]) [facility] ([facility]) [address] [place] [address] Protein [Mass/Vol] 6.5 g/dL Normal 6.4-8.[address] [facility] Comment on above: Performed By: #### 2 4323-8 #### OLIMPIA WARE ([id number]) [facility] ([facility]) [address] [place] [address] Sodium [Moles/Vol] 138 mmol/L Normal 136-[address] [facility] Comment on above: Performed By: #### 2 4323-8 #### OLIMPIA WARE ([id number]) [facility] ([facility]) [address] [place] [address] Urea nitrogen [Mass/Vol] 24 mg/dL High 6-23 [facility] Comment on above: Performed By: #### 2 4323-8 #### OLIMPIA WARE ([id number]) [facility] ([facility]) [address] [place] [address] CBC AND DIFFERENTIALon 05-12 % AUTOMATED IMMATURE GRAN Canceled Normal [facility] Comment on above: Order Comment: TEST CBC AND DIFFERENTIAL WAS CANCELLED, 05/12/2022 10:[address] ciaran mcmanus needed. Result Comment: Halima ture Granulocyte Count (IG) includes promyelocytes, myelocytes and metamyelocytes but does not include bands. Percent differential counts (%) should be interpreted in the context of the absolute cell counts (cells/L). Performed By: #### C BCDF #### [address] [place] [address] % BASOPHIL Canceled Normal [facility] Comment on above: Order Comment: TEST CBC AND DIFFERENTIAL WAS CANCELLED, 05/12/2022 10:[address] ciaran mcmanus needed. Performed By: #### C BCDF #### [address] [place] [address] % EOSINOPHIL Canceled Normal [facility] Comment on above: Order Comment: TEST CBC AND DIFFERENTIAL WAS CANCELLED, 05/12/2022 10:[address] ciaran mcmanus needed. Performed By: #### C BCDF #### [address] [place] [address] % LYMPHOCYTE Canceled Normal [facility] Comment on above: Order Comment: TEST CBC AND DIFFERENTIAL WAS CANCELLED, 05/12/2022 10:[address] ciaran mcmanus needed. Performed By: #### C BCDF #### [address] [place] [address] % MONOCYTE Canceled Normal [facility] Comment on above: Order Comment: TEST CBC AND DIFFERENTIAL WAS CANCELLED, 05/12/2022 10:[address] ciaran mcmanus needed. Performed By: #### C BCDF #### [address] [place] [address] % NEUTROPHIL Canceled Normal [facility] Comment on above: Order Comment: TEST CBC AND DIFFERENTIAL WAS CANCELLED, 05/12/2022 10:[address] ciaran mcmanus needed. Performed By: #### C BCDF #### [address] [place] [address] BASOPHIL Canceled Normal [facility] Comment on above: Order Comment: TEST CBC AND DIFFERENTIAL WAS CANCELLED, 05/12/2022 10:[address] ciaran mcmanus needed. Performed By: #### C BCDF #### [address] [place] [address] DIFFERENTIAL Canceled Normal [facility] Comment on above: Order Comment: TEST CBC AND DIFFERENTIAL WAS CANCELLED, 05/12/2022 10:[address] ciaran mcmanus needed. Performed By: #### C BCDF #### [address] [place] [address] EOSINOPHIL Canceled Normal [facility] Comment on above: Order Comment: TEST CBC AND DIFFERENTIAL WAS CANCELLED, 05/12/2022 10:[address] ciaran mcmanus needed. Performed By: #### C BCDF #### [address] [place] [address] HCT Canceled Normal [facility] Comment on above: Order Comment: TEST CBC AND DIFFERENTIAL WAS CANCELLED, 05/12/2022 10:[address] ciaran mcmanus needed. Performed By: #### C BCDF #### [address] [place] [address] HGB Canceled Normal [facility] Comment on above: Order Comment: TEST CBC AND DIFFERENTIAL WAS CANCELLED, 05/12/2022 10:[address] mohmand doesnot needed. Performed By: #### C BCDF #### [address] [place] [address] LYMPHOCYTE Canceled Normal [facility] Comment on above: Order Comment: TEST CBC AND DIFFERENTIAL WAS CANCELLED, 05/12/2022 10:[address] ciaran mcmanus needed. Performed By: #### C BCDF #### [address] [place] [address] MCHC Canceled Normal [facility] Comment on above: Order Comment: TEST CBC AND DIFFERENTIAL WAS CANCELLED, 05/12/2022 10:[address] ciaran mcmanus needed. Performed By: #### C BCDF #### [address] [place] [address] MCV Canceled Normal [facility] Comment on above: Order Comment: TEST CBC AND DIFFERENTIAL WAS CANCELLED, 05/12/2022 10:[address] ciaran mcmanus needed. Performed By: #### C BCDF #### [address] [place] [address] MONOCYTE Canceled [facility] Comment on above: Order Comment: TEST CBC AND DIFFERENTIAL WAS CANCELLED, 05/12/2022 10:[address] ciaran mcmanus needed. Performed By: #### C BCDF #### [address] [place] [address] NEUTROPHIL Canceled Normal [facility] Comment on above: Order Comment: TEST CBC AND DIFFERENTIAL WAS CANCELLED, 05/12/2022 10:[address] ciaran mcmanus needed. Performed By: #### C BCDF #### [address] [place] [address] PLT Canceled Normal [facility] Comment on above: Order Comment: TEST CBC AND DIFFERENTIAL WAS CANCELLED, 05/12/2022 10:[address] ciaran mcmanus needed. Performed By: #### C BCDF #### [address] [place] [address] RBC Canceled Normal [facility] Comment on above: Order Comment: TEST CBC AND DIFFERENTIAL WAS CANCELLED, 05/12/2022 10:[address] ciaran mcmanus needed. Performed By: #### C BCDF #### [address] [place] [address] RDW-CV Canceled Normal [facility] Comment on above: Order Comment: TEST CBC AND DIFFERENTIAL WAS CANCELLED, 05/12/2022 10:[address] ciaran mcmanus needed. Performed By: #### C BCDF #### [address] [place] [address] WBC Canceled Normal [facility] Comment on above: Order Comment: TEST CBC AND DIFFERENTIAL WAS CANCELLED, 05/12/2022 10:[address] ciaran mcmanus needed. Performed By: #### C BCDF #### [address] [place] [address] COMPREHENSIVE PANELon 2021 ALBUMIN Canceled Normal [facility] Comment on above: Order Comment: TEST COMPREHENSIVE PANEL WAS CANCELLED, 05/12/2022 10:[address] ciaran mcmanus needed. Performed By: #### C MP #### [address] [place] [address] ALKALINE PHOSPHATASE Canceled Normal [facility] Comment on above: Order Comment: TEST COMPREHENSIVE PANEL WAS CANCELLED, 05/12/2022 10:[address] ciaran mcmanus needed. Performed By: #### C MP #### [address] [place] [address] ALT Canceled Normal [facility] Comment on above: Order Comment: TEST COMPREHENSIVE PANEL WAS CANCELLED, 05/12/2022 10:[address] ciaran mcmanus needed. Result Comment: Kanwal ents treated with Sulfasalazine may generate falsely decreased results for ALT. Performed By: #### C MP #### [address] [place] [address] ANION GAP [place]eled [facility] on above: Order Comment: TEST COMPREHENSIVE PANEL WAS CANCELLED, 05/12/2022 10:[address] ciaran mcmanus needed. Performed By: #### C MP #### [address] [place] [address] AST [place]eled [facility] [place] on above: Order Comment: TEST COMPREHENSIVE PANEL WAS CANCELLED, 05/12/2022 10:[address] ciaran mcmanus needed. Performed By: #### C MP #### [address] [place] [address] BICARBONATE [place]eled [facility] [place] on above: Order Comment: TEST COMPREHENSIVE PANEL WAS CANCELLED, 05/12/2022 10:[address] ciaran mcmanus needed. Performed By: #### C MP #### [address] [place] [address] BILIRUBIN,TOTAL Canceled [facility] [place] on above: Order Comment: TEST COMPREHENSIVE PANEL WAS CANCELLED, 05/12/2022 10:[address] ciaran mcmanus needed. Performed By: #### C MP #### [address] [place] [address] CALCIUM Canceled [facility] [place] above: Order Comment: TEST COMPREHENSIVE PANEL WAS CANCELLED, 05/12/2022 10:[address] ciaran mcmanus needed. Performed By: #### C MP #### [address] [place] [address] CHLORIDE Canceled [facility] [place] above: Order Comment: TEST COMPREHENSIVE PANEL WAS CANCELLED, 05/12/2022 10:[address] ciaran mcmanus needed. Performed By: #### C MP #### [address] [place] [address] CREATININE Canceled [facility] [place] on above: Order Comment: TEST COMPREHENSIVE PANEL WAS CANCELLED, 05/12/2022 10:[address] ciaran mcmanus needed. Performed By: #### C MP #### [address] [place] [address] eGFR FEMALE Canceled [facility] [place] on above: Order Comment: TEST COMPREHENSIVE PANEL WAS CANCELLED, 05/12/2022 10:[address] ciaran mcmanus needed. Result Comment: CALC ULATIONS OF ESTIMATED GFR ARE PERFORMED USING THE 2020 CKD-EPI STUDY REFIT EQUATION WITHOUT THE RACE VARIABLE FOR THE IDMS-TRACEABLE CREATININE METHODS. https://jasn.asnjournals.org/content/earlyASN.678 7006349 Performed By: #### C MP #### [address] [place] [address] eGFR MALE Canceled [facility] [place] on above: Order Comment: TEST COMPREHENSIVE PANEL WAS CANCELLED, 05/12/2022 10:[address] ciaran mcmanus needed. Result Comment: CALC ULATIONS OF ESTIMATED GFR ARE PERFORMED USING THE 2020 CKD-EPI STUDY REFIT EQUATION WITHOUT THE RACE VARIABLE FOR THE IDMS-TRACEABLE CREATININE METHODS. https://jasn.asnjournals.org/content/earlyASN.616 3192356 Performed By: #### C MP #### [address] [place] [address] GLUCOSE Canceled [facility] Comment on above: Order Comment: TEST COMPREHENSIVE PANEL WAS CANCELLED, 05/12/2022 10:[address] ciaran mcmanus needed. Performed By: #### C MP #### [address] [place] [address] POTASSIUM Canceled [facility] [place] on above: Order Comment: TEST COMPREHENSIVE PANEL WAS CANCELLED, 05/12/2022 10:[address] ciaran mcmanus needed. Performed By: #### C MP #### [address] [place] [address] SODIUM Canceled [facility] Comment on above: Order Comment: TEST COMPREHENSIVE PANEL WAS CANCELLED, 05/12/2022 10:[address] ciaran mcmanus needed. Performed By: #### C MP #### [address] [place] [address] TOTAL PROTEIN Canceled [facility] [place] on above: Order Comment: TEST COMPREHENSIVE PANEL WAS CANCELLED, 05/12/2022 10:[address] ciaran mcmanus needed. Performed By: #### C MP #### [address] [place] [address] UREA NITROGEN Canceled [facility] [place] on above: Order Comment: TEST COMPREHENSIVE PANEL WAS CANCELLED, 05/12/2022 10:[address] ciaran mcmanus needed. Performed By: #### C MP #### [address] [place] [address] Clinic Note - Heme Onc-Follo w Up Visiton 05-12-2022 Clinic Note - Heme Onc-Follow Up Visit Patient Visit Information: Visit Type: Follow Up Visit History of Present Illness: ID Statement: YUSEF CAR is a 72 year old Male Chief Complaint: Duodenal neuroendocrine tumor Interval History: 71 years old gentleman from [place], [place] who has been referred to me from [facility]. The patient complained of acid reflux for more than 20 years and he also had intermittent gastric ulcers before. But recently around 06/2020 he started having epigastric pain with worsening of his acid reflux. And his primary care physician sent him to do abdominal ultrasound and then HIDA scan was results were normal with no evidence of biliary obstruction or cholecystitis. 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 Restaging imaging exclude metastatic disease. No more abdominal pain, he denies any nausea or vomiting, or change in bowel movement. He denies any carcinoid features. Today: Yusef presents with his for a follow up exam. Overall he feels well. he is eating and drinking okay. Denies any nausea, vomiting, changes in bowels, flushing, or wheezing. PMH Hypertension, type 2 diabetes, MVP PSH: Non significant FH: His sister had breast cancer, maternal and paternal grandmothers had stomach cancer Review of Systems: Review of Systems: Positive for the HPI and negative for the rest of 14 systems Allergies and Intolerances: Allergies: lisinopril: Drug, Other, Active Cipro: Drug, Other, Active erythromycin: Drug, Other, Active Outpatient Medication Profile: * Patient Currently Takes Medications as of 12-May-2022 09:56 documented in Structured Notes glimepiride 4 mg oral tablet: Last Dose Taken: , 1 tab(s) orally 2 times a day bisoprolol 5 mg oral tablet: Last Dose Taken: , 1 tab(s) orally once a day losartan 100 mg oral tablet: Last Dose Taken: , 1 tab(s) orally once a day amLODIPine 10 mg oral tablet: Last Dose Taken: , 1 tab(s) orally once a day rosuvastatin 10 mg oral tablet: Last Dose Taken: , 1 tab(s) orally once a day furosemide 20 mg oral tablet: Last Dose Taken: , 1 tab(s) orally once a day allopurinol 300 mg oral tablet: Last Dose Taken: , 1 tab(s) orally once a day pioglitazone 30 mg oral tablet: Last Dose Taken: , 1 tab(s) orally once a day fluticasone propionate 55 mcg/inh inhalation powder: Last Dose Taken: , inhaled once a day (at bedtime) omeprazole 40 mg oral delayed release capsule: Last Dose Taken: , 1 cap(s) orally once a day Medical History: 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 Social History: Social Substance History: Smoking Statusnever smoker Tobacco Usedenies Alcohol Useoccasionally Drug Usedenies Performance: ECOG Performance Status: 0 Fully Active Vitals and Measurements: Vitals: Temp: 36.1 HR: 75 RR: 18 BP: 147/81 SPO2%: 94 Measurements: HT(cm): 176.8 WT(kg): 113.5 BSA: 2.36 BMI: 36.3 Last 3 Weights & Heights: Date: Weight/Scale Type:Height: 26-Aug-2021 13:11476 kg / standing uykbx806.8 cm 20-May-2021 12:36191 kg / standing .8 cm 04-Feb-2021 09:96000 kg / standing dxfyj424.8 cm Physical Exam: Constitutional: Appears well and in NAD Eyes: PERRL, EOMI, clear sclera ENMT: mucous membranes moist, no apparent injury, no lesions seen Head/Neck: Neck supple, no apparent injury, thyroid without mass or tenderness, No JVD, trachea midline Respiratory/Thorax: Patent airways, CTAB, normal breath sounds with good chest expansion, thorax symmetric Cardiovascular: Regular, rate and rhythm, no murmurs, 2+ equal pulses of the extremities, normal S 1and S 2 Gastrointestinal: Non-distended, soft, non-tender, no rebound tenderness or guarding, no masses palpable, no organomegaly, +BS Musculoskeletal: ROM intact, no joint swelling, normal strength Extremities: normal extremities, no cyanosis edema, contusions or wounds, no clubbing Neurological: alert and oriented x3, intact senses, motor, response and reflexes, normal strength Lymphatic: No significant lymphadenopathy Psychological: Appropriate mood and behavior Skin: Warm and dry, no lesions, no rashes Lab Results: Results CBC date/time WBC HGB HCT PLT Neut 26-Aug-2021 14:28 9.7 12.8(L) 40.9(L) 381 7.11(H) 20-May-2021 13:58 9.5 12.6(L) 39.8(L) 379 6.79(H) 11-Jan-2021 08:30 7.7 12.9(L) 40.9(L) 360 5.68(H) 26-Dec-2020 08:49 N/A N/A N/A N/A N/A 25-Dec-2020 13:40 11.4(H) 13.0(L) 40.2(L) 401 8.78(H) BMP date/time NA K CL CO2 BUN CREAT 26-Aug-2021 1 (more content not included)... [facility] Clinic Note - Intakeon 05-12 Clinic Note - Intake Patient Visit Information: Visit TypeFollow Up Visit Source of Informationpatient Accompanied byspouse Admission Information: Admission Since Last VisitNo Vital Signs: Temp (degrees C)36.1 degrees C Heart Rate (beats/min)75 beats per minute Respiration (breaths/min)18 breath per minute BP Systolic (mm Hg)Image has been removed. 147 mmHg BP Diastolic (mm Hg)81 mmHg BP Mean (mm Hg)103 mmHg Height in cm176.8 centimeter(s) Weight in kg113.5 kilogram(s) Weightstanding BMI (kg/m2)36.3 kg/M2 BSA (m2)2.36 M2 Last 3 Weights & HeightsDate: Weight/Scale Type:Height: 26-Aug-2021 13:74076 kg / standing .8 cm 20-May-2021 12:21207 kg / standing irwwq496.8 cm SpO2 (%)94 % SpO2 Patient Onroom air Pain Screening: Patient States Painno (0) Allergies: lisinopril: Drug, Other, Active Cipro: Drug, Other, Active erythromycin: Drug, Other, Active Outpatient Medication Profile: * Patient Currently Takes Medications as of 12-May-2022 09:56 documented in Structured Notes glimepiride 4 mg oral tablet: Last Dose Taken: , 1 tab(s) orally 2 times a day bisoprolol 5 mg oral tablet: Last Dose Taken: , 1 tab(s) orally once a day losartan 100 mg oral tablet: Last Dose Taken: , 1 tab(s) orally once a day amLODIPine 10 mg oral tablet: Last Dose Taken: , 1 tab(s) orally once a day rosuvastatin 10 mg oral tablet: Last Dose Taken: , 1 tab(s) orally once a day furosemide 20 mg oral tablet: Last Dose Taken: , 1 tab(s) orally once a day allopurinol 300 mg oral tablet: Last Dose Taken: , 1 tab(s) orally once a day pioglitazone 30 mg oral tablet: Last Dose Taken: , 1 tab(s) orally once a day fluticasone propionate 55 mcg/inh inhalation powder: Last Dose Taken: , inhaled once a day (at bedtime) omeprazole 40 mg oral delayed release capsule: Last Dose Taken: , 1 cap(s) orally once a day Notification: NotificationsAnnual Screens Due Dates Advanced Directives: Apr 29, 2023 Family Violence: Apr 29, 2023 Depression (Due every 6 months for ONC only; all others use Annual date): October 26, 2022 Substance Use - Alcohol: Apr 29, 2023 Substance Use - Drugs: Apr 29, 2023 Nutrition: Apr 29, 2023 Learning: Apr 29, 2023 Travel History: COVID-19 Screening Completedno exposure or symptoms Travel or ExposureNO travel to International locations in the past 30 days Falls: Have you fallen in the last 6 monthsno Do you have a fear of fallingno Do you feel you need assistanceno Is the patient using an assistive deviceno Not a falls riskimplement environmental risk factors interventions Spiritual/Procedural: Spiritual/cultural/religi ous practices important for us to knowno Alcohol, prescription or recreational drugs taken this AM for non medical reasonsno Electronic Signatures: Kindra Maher (PCNA) (Signed 12-May-2022 09:56) Authored: Patient Visit Information, Vital Signs, Allergies, Outpatient Medication Profile, Notification, Travel History, Falls, Spiritual/Procedural Last Updated: 12-May-2022 09:56 by Kindra Maher (PCNA) [facility] GLUCOSE-POCTon 04-29-2022 Glucose [Mass/Vol] 139 mg/dL High 74 - 99 [facility] [place] Comment on above: Performed By: #### G MARIXA #### [facility] [address] [place] [address] Laboratory - Chemistry and C hemistry - challengeon 04-29-2022 Glucose [Mass/Vol] 139 mg/dL above high threshold 74 - 99 [facility] Work Phone: No Panel Informationon 04-29 [facility] Work Phone: [email or web address] =[email or web address]} [facility] Work Phone: [facility] Work Phone: Order Reconciliationon 04-29 Order Reconciliation Page 1 Discharge Reconciliation Document Reconciliation Type: Discharge requested on behalf of Jeremiah Magaña (Physician) done by Jeremiah Magaña) Discharge - Reconciliation: 29-Apr-2022 07:33 by: Jeremiah Magaña) Home Medications EnteredHOME MEDICATIONS AT DISCHARGE DateReconciliation Comment/ Additional Information allopurinol 300 mg oral tablet 1 tab(s) orally once a day 19-Dec-2020 13:39 allopurinol 300 mg oral tablet 1 tab(s) orally once a day 19-Dec-2020 13:39 allopurinol 300 mg oral tablet is continued as allopurinol 300 mg oral tablet amLODIPine 10 mg oral tablet 1 tab(s) orally once a day 19-Dec-2020 13:37 amLODIPine 10 mg oral tablet 1 tab(s) orally once a day 19-Dec-2020 13:37 amLODIPine 10 mg oral tablet is continued as amLODIPine 10 mg oral tablet bisoprolol 5 mg oral tablet 1 tab(s) orally once a day 19-Dec-2020 13:37 bisoprolol 5 mg oral tablet 1 tab(s) orally once a day 19-Dec-2020 13:37 bisoprolol 5 mg oral tablet is continued as bisoprolol 5 mg oral tablet fluticasone propionate 55 mcg/inh inhalation powder inhaled once a day (at bedtime) 07-Jan-2021 14:02 fluticasone propionate 55 mcg/inh inhalation powder inhaled once a day (at bedtime) 07-Jan-2021 14:02 fluticasone propionate 55 mcg/inh inhalation powder is continued as fluticasone propionate 55 mcg/inh inhalation powder furosemide 20 mg oral tablet 1 tab(s) orally once a day 19-Dec-2020 13:38 furosemide 20 mg oral tablet 1 tab(s) orally once a day 19-Dec-2020 13:38 furosemide 20 mg oral tablet is continued as furosemide 20 mg oral tablet glimepiride 4 mg oral tablet 1 tab(s) orally 2 times a day 19-Dec-2020 13:36 glimepiride 4 mg oral tablet 1 tab(s) orally 2 times a day 19-Dec-2020 13:36 glimepiride 4 mg oral tablet is continued as glimepiride 4 mg oral tablet losartan 100 mg oral tablet 1 tab(s) orally once a day 19-Dec-2020 13:37 losartan 100 mg oral tablet 1 tab(s) orally once a day 19-Dec-2020 13:37 losartan 100 mg oral tablet is continued as losartan 100 mg oral tablet omeprazole 40 mg oral delayed release capsule 1 cap(s) orally once a day 20-May-2021 12:52 omeprazole 40 mg oral delayed release capsule 1 cap(s) orally once a day 20-May-2021 12:52 omeprazole 40 mg oral delayed release capsule is continued as omeprazole 40 mg oral delayed release capsule pioglitazone 30 mg oral tablet 1 tab(s) orally once a day 19-Dec-2020 13:41 pioglitazone 30 mg oral tablet 1 tab(s) orally once a day 19-Dec-2020 13:41 pioglitazone 30 mg oral tablet is continued as pioglitazone 30 mg oral tablet rosuvastatin 10 mg oral tablet 1 tab(s) orally once a day 19-Dec-2020 13:38 rosuvastatin 10 mg oral tablet 1 tab(s) orally once a day 19-Dec-2020 13:38 rosuvastatin 10 mg oral tablet is continued as rosuvastatin 10 mg oral tablet All Active Home Medications at time of Discharge Reconciliation: 29-Apr-2022 07:33 allopurinol 300 mg oral tablet 1 tab(s) orally once a day amLODIPine 10 mg oral tablet 1 tab(s) orally once a day bisoprolol 5 mg oral tablet 1 tab(s) orally once a day fluticasone propionate 55 mcg/inh inhalation powder inhaled once a day (at bedtime) furosemide 20 mg oral tablet 1 tab(s) orally once a day glimepiride 4 mg oral tablet 1 tab(s) orally 2 times a day losartan 100 mg oral tablet 1 tab(s) orally once a day omeprazole 40 mg oral delayed release capsule 1 cap(s) orally once a day pioglitazone 30 mg oral tablet 1 tab(s) orally once a day rosuvastatin 10 mg oral tablet 1 tab(s) orally once a day [facility] Surgical Pathology Depar tmenton 04-29-2022 [facility] Surgical Pathology Department Name YUSEF CAR Pathologist: DU LUGO Date of Procedure: 04/29/2022 Date Received: 04/29/2022 Date Reported 05/05/2022 Submitting Physician: JEREMIAH MAGAÑA MD Location: [facility] Copy To/Referring/Attending: VANESSA STEELE MD Other External # FINAL DIAGNOSIS A. DUODENAL BULB: -- DUODENAL MUCOSA, NO PATHOLOGICAL DIAGNOSIS. -- NO RESIDUAL/RECURRENT NEUROENDOCRINE TUMOR IDENTIFIED, SEE COMMENT. B. STOMACH / ANTRUM BIOPSIES: -- GASTRIC ANTRAL MUCOSA WITH CHEMICAL GASTROPATHY AND RARE GLANDS WITH INTESTINAL METAPLASIA. C. STOMACH / BODY BIOPSIES: -- GASTRIC OXYNTIC MUCOSA WITH MILD CHRONIC GASTRITIS. D. GASTRIC POLYP: -- GASTRIC FUNDIC GLAND POLYP. Comment: Chromogranin stain (with adequate controls) was performed on specimen A. The stain is negative for residual/recurrent neuroendocrine tumor. Electronically Signed Out By DU LUGO/LEXIS By the signature on this report, the individual or group listed as making the Final Interpretation/Diagnosis certifies that they have reviewed this case. Diagnostic interpretation performed at [facility] [address] [facility] [place] [address] Clinical History: Follow up history of duodenal carcinoma Specimens Submitted As: A: DUODENAL BULB B: STOMACH / ANTRUM BIOPSIES C: STOMACH / BODY BIOPSIES D: GASTRIC POLYP Gross Description: A: Received in formalin, labeled with the patient's name and hospital number and A-BX duodenal bulb , are multiple fragments of deal, soft tissue aggregating to 1.2 x 0.3 x 0.2 cm. The specimen is submitted in toto in one cassette. LMP B: Received in formalin, labeled with the patient's name and hospital number and B-BX stomach/antrum , are multiple fragments of deal, soft tissue aggregating to 1.1 x 0.3 x 0.2 cm. The specimen is submitted in toto in one cassette. LMP C: Received in formalin, labeled with the patient's name and hospital number and C-BX stomach/body , are 2 fragments of deal, soft tissue aggregating to 0.5 x 0.3 x 0.2 cm. The specimen is submitted in toto in one cassette. LMP D: Received in formalin, labeled with the patient's name and hospital number and D-gastric polyp , is one polypoid fragment of deal, soft tissue measuring 0.5 x 0.4 x 0.3 cm. The specimen is submitted in toto in one cassette. LMP lmp/04/30/2022 The assays/tests were performed with appropriate positive and negative controls which stained appropriately. [facility] Department of Pathology [address] [place] [address] [facility] Comment on above: Performed By: #### U [facility] #### [facility] Surgical Pathology Department [address] [place], [place] [id number] Upper GI endoscopyon 04-29- 022 Upper GI endoscopy PATIENTNAME Patient Name: Yusef Car EXAMDATE Procedure Date: 04/29/2022 7:25 AM PATIENTID PATIENTACCOUNTNUM PATIENTDOB Date of : 1950 ADMITTYPE Admit Type: Outpatient PATIENTROOM Site: [facility] 1 ETHNICITY Ethnicity: Not or RACE Race: White PROVDR Attending MD: Jeremiah Magaña MD, [id number] ENDOPROCEDURENAME Procedure: Upper GI endoscopy INDICATION Indications: Surveillance procedure, Surveillance for malignancy due to personal history of premalignant condition, Malignant carcinoid tumor of the duodenum, Exclusion of malignant carcinoid tumor of the duodenum, Follow-up of malignant carcinoid tumor of the duodenum, For therapy of malignant carcinoid tumor of the duodenum, Previous FTRD of duodenal bulb carcinoid tumor PRIMARYPROVIDER Providers: Jeremiah Magaña MD (Doctor), Martha Kyle RN (Nurse), Moi Huff, Hearing Health Technician EDREFPROVIDER Referring: Vanessa Steele CURRENT_MEDS Medicines: See the Anesthesia note for documentation of the administered medications COMPLIC Complications: No immediate complications. Estimated blood loss: None. ENDOPROCEDURETEXT Procedure: Pre-Anesthesia Assessment: - Prior to the procedure, a History and Physical was performed, and patient medications and allergies were reviewed. The patient's tolerance of previous anesthesia was also reviewed. The risks and benefits of the procedure and the sedation options and risks were discussed with the patient. All questions were answered, and informed consent was obtained. Prior Anticoagulants: The patient has taken no anticoagulant or antiplatelet agents. ASA Grade Assessment: III - A patient with severe systemic disease. After reviewing the risks and benefits, the patient was deemed in satisfactory condition to undergo the procedure. - Prior Aspirin/ NSAID therapy: The patient has taken no aspirin or NSAID medications. After obtaining informed consent, the endoscope was passed under direct vision. Throughout the procedure, the patient's blood pressure, pulse, and oxygen saturations were monitored continuously. The Gastroscope was introduced through the mouth, and advanced to the second part of duodenum. The upper GI endoscopy was accomplished without difficulty. The patient tolerated the procedure well. FINDING Findings: The Z-line was regular and was found 40 cm from the incisors. The examined esophagus was normal. Patchy moderate inflammation characterized by congestion (edema), erosions and erythema was found in the gastric body and in the gastric antrum. Biopsies were taken with a cold forceps for histology. A single 9 mm hyperplastic polyp with no stigmata of recent bleeding was found in the gastric body. The polyp was removed with a cold snare. Resection and retrieval were complete. Localized smal nodular mucosa was found in the duodenal bulb with scar from FTRD 1 cm inferior. Imaging was performed using zoom magnification, white light and narrow band imaging to visualize the mucosa. Staining chromoscopy with methylene blue was performed using spray chromoendoscopy technique. Biopsies were taken with a cold forceps for histology. The second portion of the duodenum was normal. SEDATION Moderate Sedation: MAC EBL Estimated Blood Loss: Estimated blood loss: none. IMPRESS Impression: - Z-line regular, 40 cm from the incisors. - Normal esophagus. - Gastritis. Biopsied. - A single gastric polyp. Resected and retrieved. - Localized nodular mucosa in the duodenal bulb from previous FTRD, significant improvement. Chromoscopy performed. Biopsied. - Normal second portion of the duodenum. ENDORECOMMENDATION Recommendation: - Discharge patient to home. - Await pathology results. - Repeat upper endoscopy in 1 year for surveillance. - Patient has a contact number available for emergencies. The signs and symptoms of potential delayed complications were discussed with the patient. Return to normal activities tomorrow. Written discharge instructions were provided to the patient. - Resume previous diet. CPT_CODES Procedure Code(s): --- Professional --- 27201, Esophagogastroduodenoscop y, flexible, transoral; with removal of tumor(s), polyp(s), or other lesion(s) by snare technique ICD_CODES Diagnosis Code(s): --- Professional --- C7A.010, Malignant carcinoid tumor of the duodenum Z87.19, Personal history of other diseases of the digestive system K31.89, Other diseases of stomach and duodenum K31.7, Polyp of stomach and duodenum K29.70, Gastritis, unspecified, without bleeding CODINGSTMT CPT copyright 2020 [employer]. All rights reserved. The codes documented in this report are preliminary and upon auditing coder review may be revised to meet current compliance requirements. ATTDRPART Attending Participa (more content not included)... [facility] General/Metabolic - Establis olga lidia 12-05-2021 General/Metabolic - Established Patient Discussion/Summary - You received a copy of your genetic testing results with a family letter during our discussion today. Below is a summary of what we discussed at your appointment. - Mr. CAR is a 71 year male with a recent diagnosis of duodenal NET and a family history of thymoma and pancreatic cancer. - Mr. CAR was initially seen in the [facility] on 10/31/2021 for counseling and coordination of testing. - Based on his personal history and family history, the 84 gene Multi-Cancer Panel from [facility] was recommended and ordered. - I called him to review the results of this testing, and our discussion is summarized below. - Mr. CAR's results were NEGATIVE, meaning that no disease causing mutations were identified. - A genetic cause for his personal and/or family history of cancer/tumors has not been identified. - One reason Mr. CAR underwent genetic testing was to better understand his risk to develop a second NET or cancer, to help determine if further screening or surgery is indicated. - Because his results were negative, Mr. CAR does not have an identifiable genetic risk factor that places him at an increased risk to develop a second NET or cancer diagnosis. - We discussed that you may have a mild increased risk for pancreatic cancer, based upon your family history. However, we do not have good screening for pancreatic cancer, and it is generally offered only to those who meet CAPS5 criteria which include those with either: A 1st-degree relative AND a gene mutation OR someone with two 1st-degree relatives (parents, siblings, and children) with pancreatic cancer At this time, this does not apply to you. Screening opportunities in the future may change. We did discuss that pancreatic cancer screening is still available to Mr. Car for a self-pay option. currently offers a non-contrasted 20 minute exam for a self-pay cost of $199. A referral was offered, however Mr. Car declined at this time. - In addition, it is important for you to follow all other age-related cancer screenings per your primary care providers' recommendations, such as colonoscopies, etc. - Your family history may still suggest hereditary cancer. This could be due to a mutation in a gene which is not currently detectable, or due to a mutation in a different gene that is yet to be associated with hereditary breast cancer. More testing in your family members may help to determine this, particularly those effected with cancer or NET. - Regarding your children, if there is no significant history of cancer and/or Ashkenazi Mandaeism ancestry on their mother's side, no genetic testing is recommended for them at this time, since your test results did not show anything they need to be tested for. - Our understanding of genetic contribution to cancer diagnoses is always evolving, so there may be additional testing recommended in the future. He can contact us in 2-3 years to determine if there have been any changes since our discussion today. Lulu Calle MS, [facility] [place] [place] Genetic Counselor [place] [facility] [phone]. Chief Complaint Patient seen for discussion of genetic test results. History of Present IllnessPlease see previous genetics note. 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) Surgical History Problems History of Appendectomy History of Bunionectomy History of Shoulder surgery Family History Mother No pertinent family history Father No pertinent family history Social History Problems No alcohol use Non-smoker (V49.89) (Z78.9) Allergies Medication ciprofloxacin Recorded By: Neelima Brock; 01/08/2021 2:21:14 PM Lisinopril TABS Recorded By: Neelima Brock; 01/08/2021 2:21:14 PM Current Meds Medication NameInstruction Allopurinol 300 MG Oral Tablet amLODIPine Besylate 10 MG Oral Tablet Amoxicillin-Pot Clavulanate 875-125 MG Oral TabletTAKE 1 TABLET EVERY 12 HOURS UNTIL GONE. Bisoprolol Fumarate 5 MG Oral Tablet Fluticasone Propionate CREA Furosemide 20 MG Oral Tablet Glimepiride 4 MG Oral Tablet Losartan Potassium 100 MG Oral Tablet Omeprazole 10 MG Oral Capsule Delayed Release Omeprazole 40 MG Oral Capsule Delayed ReleaseTAKE 1 CAPSULE TWICE DAILY. Pioglitazone HCl - 30 MG Oral Tablet Rosuvastatin Calcium 10 MG Oral Tablet Sucralfate 1 GM Oral TabletTAKE 1 TABLET 4 TIMES DAILY, BEFORE MEALS AND AT BEDTIME. Time Time Stamp_: Time spent with patient: 8 minutes of which greater than 50 percent was spent counseling and or coordinating care. Signatures Electronically signed by : ANT Noonan; Dec 05 2021 2:49PM EST (Author) Electronically signed by : Skye Santos MD; Dec 05 2021 3:54PM EST (Review) [facility] Office Visit (Genetics)on Follow-up visit Patient Discussion/Summary Mr. CAR is a 71 year old male with a personal history of duodenal neuroendocrine cancer. Based on his family history, Mr. CAR meets NCCN criteria for testing of the BRCA1 and BRCA2 genes. 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 He is interested in testing, which is recommended, and was ordered today via the 84-gene Multi-Cancer + RNA analysis panel from [facility]. Our discussion is summarized below. We reviewed genes and chromosomes, inherited forms of cancer, and the MEN1 gene causing Multiple Endocrine Neoplasia type 1 (MEN1). We discussed that most cancers are not due to an inherited genetic susceptibility. However, in about 5-10% of families, there is an inherited genetic mutation that can make a person more susceptible to developing certain forms of cancer. Within these families, we often see multiple family members with cancer, occurring in multiple generations. In addition, earlier onset and bilateral cancers are suggestive of an inherited form of cancer. Finally, there is a clustering of certain types of cancer or tumors in these families, such as pancreatic and neuroendocrine tumors. We discussed the MEN1 gene, which is related to MEN1 and has been linked to neuorendocrine tumors (primarily of the foregut which includes the duodenum). Changes in this gene (sometimes referred to as mutations) are inherited in a dominant pattern and confer increased risks for parathyroid tumors (which are present in 100% of affected individuals by age 50, typically in the 20s), pituitary tumors (in 30-40% of affected individuals), and endocrine tumors of the csjzky-oncgly-namrexchhm (GEP) tract. Clinically, MEN1 is diagnosed when an individual has two or more endocrine tumors including parathyroid, anterior pituitary, and/or GEP tract tumors. There have also been links to carcinoid tumors, specifically thymic, bronchial, and type II gastric ECL carcinoids. Due to these risks, individuals diagnosed with MEN1 should be followed more closely for related findings. This includes annual blood work surveillance, consideration of an abdominal CT, MRI, or endoscopic ultrasound every three to five years from age 20 years onwards, consideration of chest CT, MRI, or somatostatin receptor scintigraphy octreotide scan annually from age 15 years, and consideration of an annual skin exam. We discussed that duodenal neuroendocrine tumors can be associated with multiple different hereditary cancer syndromes (such as VHL and NF1). Additionally, we discussed the family history of pancreatic cancer and breast cancers could also be related to something like a familial BRCA mutation. As such we would look at multiple genes on genetic testing. Gene mutations in most cancer genes, such as those in MEN1 and the BRCA genes, are inherited in an autosomal dominant fashion. This means that if an individual has a change in either of these genes, their parents, siblings, and children have a 50% chance of also having that gene change and a 50% chance of not having the gene change. We reviewed the three results we can get back: 1. Positive- Identified a change in a cancer gene that confers an increased cancer risk. We will discuss potential changes in management for his and his family based on the specific gene mutation found. 2. Negative- Clears him for a majority of predisposition cancer syndromes that we are aware of, but cannot clear him for any/all cancer predisposition risks. He would continue to be screened based on his personal and family history. 3. Variant of Uncertain Significance (VUS)- We discussed should an uncertain result come back that this would be treated like a negative result (i.e. no management recommendation will be made no familial variant testing) as the implications of this finding are currently unknown. Lastly, we discussed the Genetic Information Non-discrimination Act (ISAAC) of 2008. We discussed that per these federal law, employers (at companies with 15 employees or greater) and health insurance companies (barring and other insurances) are forbidden to ask for and use genetic information against another person. As such, health insurance companies cannot ask for genetic information and use findings affect coverage or rates. However, luxury insurances such as life insurance, intermediate manager care insurance, and/or private disability insurance companies are not forbidden against using genetic information when an individual takes out a new/additional policy in one of those areas. As such, for unaffected individuals it could be beneficial to explore/take out policies in luxury insurance areas PRIOR to undergoing genetic testing. This would mainly be of concern for unaffected members of the family such as his children or brother if they elect to test at a later time. Mr. CAR was counseled about hereditary ca (more content not included)... [facility] Note - Heme Onc-Follo w Up Visiton 08-26-2021 Clinic Note - Heme Onc-Follow Up Visit Patient Visit Information: Visit Type: Follow Up Visit History of Present Illness: ID Statement: Mr. Car is a 71 year old male Chief Complaint: Duodenal neuroendocrine tumor Interval History: 71 years old gentleman from [place], [place] who has been referred to me from [facility]. The patient complained of acid reflux for more than 20 years and he also had intermittent gastric ulcers before. But recently around 06/2020 he started having epigastric pain with worsening of his acid reflux. And his primary care physician sent him to do abdominal ultrasound and then HIDA scan was results were normal with no evidence of biliary obstruction or cholecystitis. 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 Restaging imaging exclude metastatic disease. No more abdominal pain, he denies any nausea or vomiting, or change in bowel movement. He denies any carcinoid features. Today: Yusef presents with his for a follow up exam. Overall he feels well. he is eating and drinking okay. Denies any nausea, vomiting, changes in bowels, flushing, or wheezing. He does report that in May he was hospitalized for cholecystitis and sepsis near home. PMH Hypertension, type 2 diabetes, MVP PSH: Non significant FH: His sister had breast cancer, maternal and paternal grandmothers had stomach cancer Review of Systems: Review of Systems: Positive for the HPI and negative for the rest of 14 systems Allergies and Intolerances: Allergies: lisinopril: Drug, Other, Active Cipro: Drug, Other, Active erythromycin: Drug, Other, Active Outpatient Medication Profile: * Patient Currently Takes Medications as of 02-Sep-2021 14:25 documented in Structured Notes glimepiride 4 mg oral tablet: Last Dose Taken: , 1 tab(s) orally 2 times a day bisoprolol 5 mg oral tablet: Last Dose Taken: , 1 tab(s) orally once a day losartan 100 mg oral tablet: Last Dose Taken: , 1 tab(s) orally once a day amLODIPine 10 mg oral tablet: Last Dose Taken: , 1 tab(s) orally once a day rosuvastatin 10 mg oral tablet: Last Dose Taken: , 1 tab(s) orally once a day furosemide 20 mg oral tablet: Last Dose Taken: , 1 tab(s) orally once a day allopurinol 300 mg oral tablet: Last Dose Taken: , 1 tab(s) orally once a day pioglitazone 30 mg oral tablet: Last Dose Taken: , 1 tab(s) orally once a day fluticasone propionate 55 mcg/inh inhalation powder: Last Dose Taken: , inhaled once a day (at bedtime) omeprazole 40 mg oral delayed release capsule: Last Dose Taken: , 1 cap(s) orally once a day Medical History: Duodenal nodule: ICD-10: K31.89, Status: Active Liver lesion: ICD-10: K76.9, Status: Active 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 Social History: Social Substance History: Smoking Statusnever smoker (1) Tobacco Usedenies Alcohol Useoccasionally Drug Usedenies Performance: ECOG Performance Status: 0 Fully Active Vitals and Measurements: Vitals: Temp: 36.8 HR: 72 RR: 16 BP: 156/79 SPO2%: 95 Measurements: HT(cm): 176.8 WT(kg): 105 BSA: 2.27 BMI: 33.5 Last 3 Weights & Heights: Date: Weight/Scale Type:Height: 26-Aug-2021 13:72862 kg / standing .8 cm 20-May-2021 12:19011 kg / standing bwnox579.8 cm 04-Feb-2021 09:92877 kg / standing gupim302.8 cm Physical Exam: Constitutional: Appears well and in NAD Eyes: PERRL, EOMI, clear sclera ENMT: mucous membranes moist, no apparent injury, no lesions seen Head/Neck: Neck supple, no apparent injury, thyroid without mass or tenderness, No JVD, trachea midline Respiratory/Thorax: Patent airways, CTAB, normal breath sounds with good chest expansion, thorax symmetric Cardiovascular: Regular, rate and rhythm, no murmurs, 2+ equal pulses of the extremities, normal S 1and S 2 Gastrointestinal: Non-distended, soft, non-tender, no rebound tenderness or guarding, no masses palpable, no organomegaly, +BS Musculoskeletal: ROM intact, no joint swelling, normal strength Extremities: normal extremities, no cyanosis edema, contusions or wounds, no clubbing Neurological: alert and oriented x3, intact senses, motor, response and reflexes, normal strength Lymphatic: No significant lymphadenopathy Psychological: Appropriate mood and behavior Skin: Warm and dry, no lesions, no rashes Lab Results: Results I have reviewed these laboratory results: Comprehensive Metabolic Panel 26-Aug-2021 14:28:00 ResultValue Glucose, Serum 109 H NA 142 K 4.8 CL 106 Bicarbonate, Serum 27 Anion Gap, Serum 14 BUN 24 H CREAT 1.27 GFR Male 60 Calcium, Serum 10.1 ALB 4.4 ALKP 93 T Pro 7.1 T Bili 0.4 Alanine Aminotransferase, Serum 13 Aspartate Transaminase, Serum 13 Complet (more content not included)... Normal [facility] Clinic Note - Intakeon 08-26 Clinic Note - Intake Patient Visit Information: Visit TypeFollow Up Visit Source of Informationpatient Accompanied byspouse Admission Information: Admission Since Last VisitYes [facility] Admission [id number] Admission Reason/Detailssepsis and removal of gall bladder Vital Signs: Temp (degrees C)36.8 degrees C Temperaturetemporal Heart Rate (beats/min)72 beats per minute Respiration (breaths/min)16 breath per minute BP Systolic (mm Hg)Image has been removed. 156 mmHg BP Diastolic (mm Hg)79 mmHg BP Mean (mm Hg)104 mmHg Height in cm176.8 centimeter(s) Height Methodstated Heightstanding Weight in kg105 kilogram(s) Weight Methodstanding scale BMI (kg/m2)33.5 kg/M2 BSA (m2)2.27 M2 Last 3 Weights & HeightsDate: Weight/Scale Type:Height: 20-May-2021 12:95352 kg / standing .8 cm 23-Aug-2021 09:34683 kg / standing .8 cm 07-Jan-2021 13:34231 kg / standing arrwu729.8 cm SpO2 (%)95 % SpO2 Patient Onroom air Pain Screening: Patient States Painno (0) Allergies: lisinopril: Drug, Other, Active Cipro: Drug, Other, Active erythromycin: Drug, Other, Active Outpatient Medication Profile: * Patient Currently Takes Medications as of 26-Aug-2021 13:49 documented in Structured Notes glimepiride 4 mg oral tablet: Last Dose Taken: , 1 tab(s) orally 2 times a day bisoprolol 5 mg oral tablet: Last Dose Taken: , 1 tab(s) orally once a day losartan 100 mg oral tablet: Last Dose Taken: , 1 tab(s) orally once a day amLODIPine 10 mg oral tablet: Last Dose Taken: , 1 tab(s) orally once a day rosuvastatin 10 mg oral tablet: Last Dose Taken: , 1 tab(s) orally once a day furosemide 20 mg oral tablet: Last Dose Taken: , 1 tab(s) orally once a day allopurinol 300 mg oral tablet: Last Dose Taken: , 1 tab(s) orally once a day pioglitazone 30 mg oral tablet: Last Dose Taken: , 1 tab(s) orally once a day fluticasone propionate 55 mcg/inh inhalation powder: Last Dose Taken: , inhaled once a day (at bedtime) omeprazole 40 mg oral delayed release capsule: Last Dose Taken: , 1 cap(s) orally once a day Notification: NotificationsAnnual Screens Due Dates Advanced Directives: May 01, 2022 Family Violence: May 01, 2022 Depression (Due every 6 months for ONC only; all others use Annual date): October 28, 2021 Substance Use - Alcohol: May 01, 2022 Substance Use - Drugs: Dec 19, 2021 Nutrition: Dec 19, 2021 Learning: Dec 19, 2021 Travel History: COVID-19 Screening Completedno exposure or symptoms Travel or ExposureNO travel to International locations in the past 30 days Falls: Have you fallen in the last 6 monthsno Do you have a fear of fallingno Do you feel you need assistanceno Is the patient using an assistive deviceno Electronic Signatures: Latanya Bhat (PCNA) (Signed 26-Aug-2021 13:50) Authored: Patient Visit Information, Vital Signs, Allergies, Outpatient Medication Profile, Notification, Travel History, Falls Last Updated: 26-Aug-2021 13:50 by Latanya Bhat (PCNA) Normal [facility] CULTURE BLOODon 06-09-2021 Microscopic examination of blood, culture Culture Observations: Klebsiella pneumoniae in aerobic bottle. Culture Observations: NO GROWTH IN ANAEROBIC BOTTLE AT 5 DAYS. Isolate 1 Klebsiella pneumoniae Growth of ORGANISM 1 Klebsiella pneumoniae ANTIBIOTIC M.I.C RX STATUS Ampicillin >=32 R F Ampicillin/Sulbactam 16 I F Piperacillin/Tazobactam <=4 S F Cefazolin <=4 S F Ceftazidime <=1 S F Ceftriaxone <=1 S F Ertapenem <=0.5 S F Imipenem <=0.25 S F Amikacin <=2 S F Gentamicin <=1 S F Tobramycin <=1 S F Ciprofloxacin <=0.25 S F Levofloxacin <=0.12 S F Trimethoprim/Sulfamethoxa zole <=20 S F Normal [facility] [place] Comment on above: Performed By: #### C BCMAN #### [facility] [address] [place] [address] Dr. Freda Wayne CBC AUTO DIFFon 06-06-2021 BASO # 0.0 103/ul Normal 0.0-0.1 [facility] [place] Comment on above: Performed By: #### P OCGLUC #### [facility] [address] [place] [address] José Luis Kisha Basophils/100 WBC (Bld) 0.1 % Critically low 0.2-2.0 [facility] Comment on above: Performed By: #### P OCGLUC #### [facility] [address] [place] [address] José Luis Kisha EO # 0.0 103/ul Normal 0.0-0.7 [facility] [place] Comment on above: Performed By: #### P OCGLUC #### [facility] [address] [place] [address] José Luis Kisha Eosinophils/100 WBC (Bld) 0.0 % Critically low 0.9-7.0 [facility] Comment on above: Performed By: #### P OCGLUC #### [facility] [address] [place] [address] José Luis Beard Erythrocyte distribution width (RBC) [Ratio] 15.1 % Critically high 11.0-15.0 [facility] Comment on above: Performed By: #### P OCGLUC #### [facility] [address] [place] [address] José Luis Beard Hematocrit (Bld) [Volume fraction] 34.7 % Critically low 42.0-54.0 [facility] Comment on above: Performed By: #### P OCGLUC #### [facility] [address] [place] [address] José Luis Beard Hemoglobin (Bld) [Mass/Vol] 10.9 g/dL Critically low 14.0-18.0 [facility] Comment on above: Performed By: #### P OCGLUC #### [facility] [address] [place] [address] José Luis Beard IG # 0.04 10e3/ul Critically high 0.00-0.03 [facility] Comment on above: Performed By: #### P OCGLUC #### [facility] [address] [place] [address] José Luis Beard IG % 0.4 % Normal 0.0-0.5 [facility] Comment on above: Performed By: #### P OCGLUC #### [facility] [address] [place] [address] José Luis Beard LYMPH # 0.5 103/ul Critically low 1.2-3.8 [facility] Comment on above: Performed By: #### P OCGLUC #### [facility] [address] [place] [address] José Luis Beard Lymphocytes/100 WBC (Bld) 5.5 % Critically low 20.5-60.0 [facility] Comment on above: Performed By: #### P OCGLUC #### [facility] [address] [place] [address] José Luis Beard MANUAL DIFF REQ NO Normal [facility] Comment on above: Performed By: #### P OCGLUC #### [facility] [address] [address] José Luis Beard MCH (RBC) [Entitic mass] 28.2 pg Normal 25.9-34.0 [facility] Comment on above: Performed By: #### P OCGLUC #### [facility] [address] [place] [address] José Luis Beard MCHC (RBC) [Mass/Vol] 31.4 g/dL Normal 29.9-35.2 [facility] Comment on above: Performed By: #### P OCGLUC #### [facility] [address] [place] [address] José Luis Beard MCV (RBC) [Entitic vol] 89.9 fL Normal 80.0-94.0 [facility] Comment on above: Performed By: #### P OCGLUC #### [facility] [address] [place] [address] José Luis Beard MONO # 0.9 103/ul Critically high 0.3-0.8 [facility] Comment on above: Performed By: #### P OCGLUC #### [facility] [address] [place] [address] José Luis Beard Monocytes/100 WBC (Bld) 9.4 % Normal 1.7-12.0 [facility] Comment on above: Performed By: #### P OCGLUC #### [facility] [address] [place] [address] José Luis Beard NEUT # 8.1 103/ul Critically high 1.4-6.5 [facility] Comment on above: Performed By: #### P OCGLUC #### [facility] [address] [place] [address] José Luis Beard Neutrophils/100 WBC (Bld) 84.6 % Critically high 43.0-75.0 [facility] Comment on above: Performed By: #### P OCGLUC #### [facility] [address] [place] [address] José Luis Beard Platelet mean volume (Bld) [Entitic vol] 10.5 fL Normal 9.5-13.5 [facility] Comment on above: Performed By: #### P OCGLUC #### [facility] [address] [place] [address] José Luis Kisha PLT 263 103/ul Normal 150-450 [facility] Comment on above: Performed By: #### P OCGLUC #### [facility] [address] [place] [address] José Luis Kisha RBC 3.86 106/ul Critically low 4.70-6.10 [facility] Comment on above: Performed By: #### P OCGLUC #### [facility] [address] [place], [place] [id number] José Luis Kisha WBC 9.6 103/ul Normal 4.0-11.0 [facility] Comment on above: Performed By: #### P OCGLUC #### [facility] [address] [place], [place] [id number] José Luis Beard CULTURE BLOODon 06-06-2021 Microscopic examination of blood, culture Culture Observations: NO GROWTH AT 5 DAYS. Normal [facility] Comment on above: Performed By: #### C BCMAN #### [facility] [address] [place] [address] Dr. Freda Wayne POINT OF CARE GLUCOSEon 05-16 Glucose [Mass/Vol] 192 mg/dL Critically high 74-106 [facility] Comment on above: Performed By: #### P OCGLUC #### [facility] [address] [place] [address] Dr. Freda Wayne PROF 14(COMP METB)on 021 Albumin [Mass/Vol] 2.6 g/dL Critically low 3.5-5.0 [facility] Comment on above: Performed By: #### P OCGLUC #### [facility] [address] [place] [address] José Luis Beard Albumin/Globulin [Mass ratio] 0.7 {ratio} Normal [facility] Comment on above: Performed By: #### P OCGLUC #### [facility] [address] [place] [address] José Luis Kisha ALP [Catalytic activity/Vol] 233 U/L Critically high 38-126 [facility] Comment on above: Performed By: #### P OCGLUC #### [facility] [address] [place] [address] José Luis Kisha ALT [Catalytic activity/Vol] 103 U/L Critically high 21-72 [facility] Comment on above: Performed By: #### P OCGLUC #### [facility] [address] [address] José Luis Kisha Anion gap [Moles/Vol] 12.2 mmol/L Normal [facility] Comment on above: Performed By: #### P OCGLUC #### [facility] [address] [place] [address] José Luis Kisha AST [Catalytic activity/Vol] 44 U/L Normal 17-59 [facility] Comment on above: Performed By: #### P OCGLUC #### [facility] [address] [place] [address] José Luis Kisha Bilirubin [Mass/Vol] 0.4 mg/dL Normal 0.2-1.3 [facility] Comment on above: Performed By: #### P OCGLUC #### [facility] [address] [place] [address] José Luis Kisha Calcium [Mass/Vol] 9.0 mg/dL Normal 8.4-10.2 [facility] Comment on above: Performed By: #### P OCGLUC #### [facility] [address] [place] [address] José Luis Kisha Chloride [Moles/Vol] 102 mmol/L Normal 98-107 [facility] Comment on above: Performed By: #### P OCGLUC #### [facility] [address] [place], [place] [id number] José Luis Kisha CO2 [Moles/Vol] 26.9 mmol/L Normal 22.0-30.0 [facility] Comment on above: Performed By: #### P OCGLUC #### [facility] [address] [place], [place] [id number] José Luis Kisha Creatinine [Mass/Vol] 1.22 mg/dL Normal 0.66-1.25 [facility] Comment on above: Performed By: #### P OCGLUC #### [facility] [address] [id number] José Luis Kisha EGFR-AF ZAMBIAN >60 Normal >=60 [facility] Comment on above: Performed By: #### P OCGLUC #### [facility] [address] [address] José Luis Kisha EGFR-NON AF ZAMBIAN 58 mL/min/1.73m2 Critically low >=60 [facility] Comment on above: Performed By: #### P OCGLUC #### [facility] [address] [address] José Luis Kisha Globulin (S) [Mass/Vol] 3.6 g/dL Normal [facility] Comment on above: Performed By: #### P OCGLUC #### [facility] [address] [address] José Luis Kisha Glucose [Mass/Vol] 152 mg/dL Critically high 74-106 [facility] Comment on above: Performed By: #### P OCGLUC #### [facility] [address] [address] José Luis Kisha Potassium [Moles/Vol] 4.1 mmol/L Normal 3.4-5.0 [facility] Comment on above: Performed By: #### P OCGLUC #### [facility] [address] [address] José Luis Kisha Protein [Mass/Vol] 6.2 g/dL Normal 6.1-8.2 [facility] Comment on above: Performed By: #### P OCGLUC #### [facility] [address] [address] José Luis Kisha Sodium [Moles/Vol] 137 mmol/L Normal 137-145 [facility] Comment on above: Performed By: #### P OCGLUC #### [facility] [address] [address] José Luis Kisha Urea nitrogen [Mass/Vol] 12.0 mg/dL Normal 9.0-20.0 [facility] Comment on above: Performed By: #### P OCGLUC #### [facility] [address] [place] [address] José Luis Beard Urea nitrogen/Creatinine [Mass ratio] 9.8 mg/mg Normal [facility] Comment on above: Performed By: #### P OCGLUC #### [facility] [address] [place] [address] José Luis Beard CBC AUTO DIFFon 06-05-2021 BASO # 0.0 103/ul Normal 0.0-0.1 [facility] Comment on above: Performed By: #### P OCGLUC #### [facility] [address] [place] [address] Dr. Freda Wayne Basophils/100 WBC (Bld) 0.2 % Normal 0.2-2.0 [facility] Comment on above: Performed By: #### P OCGLUC #### [facility] [address] [place] [address] Dr. Freda Wayne EO # 0.0 103/ul Normal 0.0-0.7 [facility] Comment on above: Performed By: #### P OCGLUC #### [facility] [address] [place] [address] Dr. Freda Wayne Eosinophils/100 WBC (Bld) 0.4 % Critically low 0.9-7.0 [facility] Comment on above: Performed By: #### P OCGLUC #### [facility] [address] [place] [address] Dr. Freda Wayne Erythrocyte distribution width (RBC) [Ratio] 15.4 % Critically high 11.0-15.0 [facility] Comment on above: Performed By: #### P OCGLUC #### [facility] [address] [place] [address] Dr. Freda Wayne Hematocrit (Bld) [Volume fraction] 35.5 % Critically low 42.0-54.0 [facility] Comment on above: Performed By: #### P OCGLUC #### [facility] [address] [place] [address] Dr. Freda Wayne Hemoglobin (Bld) [Mass/Vol] 11.5 g/dL Critically low 14.0-18.0 [facility] Comment on above: Performed By: #### P OCGLUC #### [facility] [address] [address] [address] Freda Wayne IG # 0.04 10e3/ul Critically high 0.00-0.03 [facility] Comment on above: Performed By: #### P OCGLUC #### [facility] [address] [address] [address] Freda Wayne IG % 0.4 % Normal 0.0-0.5 [facility] Comment on above: Performed By: #### P OCGLUC #### [facility] [address] [address] [address] Freda Wayne LYMPH # 0.7 103/ul Critically low 1.2-3.8 [facility] Comment on above: Performed By: #### P OCGLUC #### [facility] [address] [place] [address] Dr. Freda Wayne Lymphocytes/100 WBC (Bld) 7.4 % Critically low 20.5-60.0 [facility] Comment on above: Performed By: #### P OCGLUC #### [facility] [address] [place] [address] Dr. Freda Wayne MANUAL DIFF REQ NO Normal [facility] Comment on above: Performed By: #### P OCGLUC #### [facility] [address] [address] [address] Freda Wayne MCH (RBC) [Entitic mass] 28.8 pg Normal 25.9-34.0 [facility] Comment on above: Performed By: #### P OCGLUC #### [facility] [address] [address] [address] Freda Wayne MCHC (RBC) [Mass/Vol] 32.4 g/dL Normal 29.9-35.2 [facility] Comment on above: Performed By: #### P OCGLUC #### [facility] [address] [place] [address] Dr. Freda Wayne MCV (RBC) [Entitic vol] 89.0 fL Normal 80.0-94.0 [facility] Comment on above: Performed By: #### P OCGLUC #### [facility] [address] [address] [address] Freda Wayne MONO # 1.1 103/ul Critically high 0.3-0.8 [facility] Comment on above: Performed By: #### P OCGLUC #### [facility] [address] [address] [address] Freda Wayne Monocytes/100 WBC (Bld) 10.5 % Normal 1.7-12.0 [facility] Comment on above: Performed By: #### P OCGLUC #### [facility] [address] [address] [address] Freda Wayne NEUT # 8.2 103/ul Critically high 1.4-6.5 [facility] Comment on above: Performed By: #### P OCGLUC #### [facility] [address] [place] [address] Dr. Freda Wayne Neutrophils/100 WBC (Bld) 81.1 % Critically high 43.0-75.0 [facility] Comment on above: Performed By: #### P OCGLUC #### [facility] [address] [place] [address] Dr. Freda Wayne Platelet mean volume (Bld) [Entitic vol] 10.4 fL Normal 9.5-13.5 [facility] Comment on above: Performed By: #### P OCGLUC #### [facility] [address] [place] [address] Dr. Freda Wayne PLT 262 103/ul Normal 150-450 [facility] Comment on above: Performed By: #### P OCGLUC #### [facility] [address] [address] [address] Freda Wayne RBC 3.99 106/ul Critically low 4.70-6.10 [facility] Comment on above: Performed By: #### P OCGLUC #### [facility] [address] [place] [address] Dr. Freda Wayne WBC 10.1 103/ul Normal 4.0-11.0 [facility] Comment on above: Performed By: #### P OCGLUC #### [facility] [address] [address] [address] Freda Wayne POINT OF CARE GLUCOSEon 05-16 Glucose [Mass/Vol] 208 mg/dL Critically high [facility]106 [facility] Comment on above: Performed By: #### P OCGLUC #### [facility] [address] [address] [address] Freda Wayne Glucose [Mass/Vol] 188 mg/dL Critically high [facility]106 [facility] Comment on above: Performed By: #### P OCGLUC #### [facility] [address] [address] [address] Freda Wayne Glucose [Mass/Vol] 143 mg/dL Critically high [address] [place] [address] Comment on above: Performed By: #### P OCGLUC #### [facility] [address] [place] [address] José Luis Beard PROF 14(COMP METB)on Albumin [Mass/Vol] 2.8 g/dL Critically low 3.5-5.0 [facility] Comment on above: Performed By: #### P OCGLUC #### [facility] [address] [place] [address] José Luis Beard Albumin/Globulin [Mass ratio] 0.8 {ratio} Normal [facility] Comment on above: Performed By: #### P OCGLUC #### [facility] [address] [place] [address] José Luis Beard ALP [Catalytic activity/Vol] 126 U/L Normal 38-126 [facility] Comment on above: Performed By: #### P OCGLUC #### [facility] [address] [place] [address] José Luis Beard ALT [Catalytic activity/Vol] 109 U/L Critically high 21-72 [facility] Comment on above: Performed By: #### P OCGLUC #### [facility] [address] [place] [address] José Luis Beard Anion gap [Moles/Vol] 14.4 mmol/L Normal [facility] Comment on above: Performed By: #### P OCGLUC #### [facility] [address] [id number] José Luis Kisha AST [Catalytic activity/Vol] 42 U/L Normal 17-59 [facility] Comment on above: Performed By: #### P OCGLUC #### [facility] [address] [address] José Luis Kisha Bilirubin [Mass/Vol] 0.7 mg/dL Normal 0.2-1.3 [facility] Comment on above: Performed By: #### P OCGLUC #### [facility] [address] [address] José Luis Kisha Calcium [Mass/Vol] 8.7 mg/dL Normal 8.4-10.2 [facility] Comment on above: Performed By: #### P OCGLUC #### [facility] [address] [address] José Luis Kisha Chloride [Moles/Vol] 100 mmol/L Normal 98-107 [facility] Comment on above: Performed By: #### P OCGLUC #### [facility] [address] [address] José Luis Kisha CO2 [Moles/Vol] 26.1 mmol/L Normal 22.0-30.0 [facility] Comment on above: Performed By: #### P OCGLUC #### [facility] [address] [address] José Luis Kisha Creatinine [Mass/Vol] 1.23 mg/dL Normal 0.66-1.25 [facility] Comment on above: Performed By: #### P OCGLUC #### [facility] [address] [address] José Luis Kisha EGFR-AF ZAMBIAN >60 Normal >=60 [facility] Comment on above: Performed By: #### P OCGLUC #### [facility] [address] [address] José Luis Kisha EGFR-NON AF ZAMBIAN 58 mL/min/1.73m2 Critically low >=60 [facility] Comment on above: Performed By: #### P OCGLUC #### [facility] [address] [address] José Luis Kisha Globulin (S) [Mass/Vol] 3.5 g/dL Normal [facility] Comment on above: Performed By: #### P OCGLUC #### [facility] [address] [address] José Luis Kisha Glucose [Mass/Vol] 139 mg/dL Critically high 74-106 [facility] Comment on above: Performed By: #### P OCGLUC #### [facility] [address] [address] José Luis Kisha Potassium [Moles/Vol] 3.5 mmol/L Normal 3.4-5.0 [facility] Comment on above: Performed By: #### P OCGLUC #### [facility] [address] [address] José Luis Kisha Protein [Mass/Vol] 6.3 g/dL Normal 6.1-8.2 [facility] Comment on above: Performed By: #### P OCGLUC #### [facility] [address] [address] José Luis Kisha Sodium [Moles/Vol] 137 mmol/L Normal 137-145 [facility] Comment on above: Performed By: #### P OCGLUC #### [facility] [address] [place] [address] José Luis Kisha Urea nitrogen [Mass/Vol] 12.0 mg/dL Normal 9.0-20.0 [facility] Comment on above: Performed By: #### P OCGLUC #### [facility] [address] [place] [address] José Luis Kisha Urea nitrogen/Creatinine [Mass ratio] 9.8 mg/mg Normal [facility] Comment on above: Performed By: #### P OCGLUC #### [facility] [address] [id number] José Luis Kisha CBC W MANUAL DIFFon 06-04- 21 ATYPICAL LYMPH # Normal [facility] Comment on above: Performed By: #### C BCMAN #### [facility] [address] [place], [place] [address] Dr. Freda Wayne ATYPICAL LYMPH % Normal [facility] Comment on above: Performed By: #### C BCMAN #### [facility] [address] [place] [address] Dr. Freda Wayne BAND # 0.3 103/ul Normal 0.0-0.3 [facility] Comment on above: Performed By: #### C BCMAN #### [facility] [address] [place] [address] Dr. Freda Wayne BAND % 3 % Normal 0-5 [facility] Comment on above: Performed By: #### C BCMAN #### [facility] [address] [place] [address] Dr. Freda Wayne BASOM # 0.00 103/ul Normal 0.00-0.10 [facility] Comment on above: Performed By: #### C BCMAN #### [facility] [address] [place] [address] Dr. Freda Wayne BASOM % 0.0 % Critically low 0.2-2.0 [facility] Comment on above: Performed By: #### C BCJOE #### [facility] [address] [place] [address] Dr. Freda Wayne BLAST # Normal [facility] Comment on above: Performed By: #### C BCMAN #### [facility] [address] [place] [address] Dr. Freda Wayne BLAST % Normal [facility] Comment on above: Performed By: #### C BCJOE #### [facility] [address] [place] [address] Dr. Freda Wayne CORRECTED WBC Normal 4.0-11.0 [facility] Comment on above: Performed By: #### C BCMAN #### [facility] [address] [place] [address] Dr. Freda Wayne EOS # 0.00 103/ul Normal 0.00-0.70 [facility] Comment on above: Performed By: #### C BCMAN #### [facility] [address] [place] [address] Dr. Freda Wayne EOS% 0.0 % Critically low 0.9-7.0 [facility] Comment on above: Performed By: #### C BCJOE #### [facility] [address] [place] [address] Dr. Freda Wayen HCT 35.4 % Critically low 42.0-54.0 [facility] Comment on above: Performed By: #### C NICOLE #### [facility] [address] [place] [address] Dr. Freda Wayne HGB 11.3 g/dl Critically low 14.0-18.0 [facility] Comment on above: Performed By: #### C NICOLE #### [facility] [address] [place] [address] Dr. Freda Wayne LYMPHM # 0.65 103/ul Critically low 1.20-3.80 [facility] Comment on above: Performed By: #### C NICOLE #### [facility] [address] [place] [address] Dr. Freda Wayne LYMPHM% 6.0 % Critically low 20.5-60.0 [facility] Comment on above: Performed By: #### C NICOLE #### [facility] [address] [place] [address] Dr. Freda Wayne MCH 28.8 pg Normal 25.9-34.0 [facility] Comment on above: Performed By: #### C NICOLE #### [facility] [address] [place] [address] Dr. Freda Wayne MCHC 31.9 g/dl Normal 29.9-35.2 [facility] Comment on above: Performed By: #### C NICOLE #### [facility] [address] [place] [address] Dr. Freda Wanye MCV 90.3 fL Normal 80.0-94.0 [facility] Comment on above: Performed By: #### C BCJOE #### [facility] [address] [place] [address] Dr. Freda Wayne METAMYELOCYTE # Normal [facility] Comment on above: Performed By: #### C NICOLE #### [facility] [address] [place] [address] Dr. Freda Wayne METAMYELOCYTE % Normal [facility] Comment on above: Performed By: #### C NICOLE #### [facility] [address] [place] [address] Dr. Freda Wayne MONOM# 0.76 103/ul Normal 0.30-0.80 [facility] Comment on above: Performed By: #### C NICOLE #### [facility] [address] [place] [address] Dr. Freda Wayne MONOM% 7.0 % Normal 1.7-12.0 [facility] Comment on above: Performed By: #### C NICOLE #### [facility] [address] [place] [address] Dr. Freda Wayne MPV 10.2 fL Normal 9.5-13.5 [facility] Comment on above: Performed By: #### C NICOLE #### [facility] [address] [place] [address] Dr. Freda Wayne MYELOCYTE # Normal [facility] Comment on above: Performed By: #### C NICOLE #### [facility] [address] [place] [address] Dr. Freda Wayne MYELOCYTE % Normal [facility] Comment on above: Performed By: #### C NICOLE #### [facility] [address] [place] [address] Dr. Freda Wayne NRBC Normal [facility] Comment on above: Performed By: #### C NICOLE #### [facility] [address] [place] [address] Dr. Freda Wayne PLT 275 103/ul Normal 150-450 [facility] Comment on above: Performed By: #### C NICOLE #### [facility] [address] [place] [address] Dr. Freda Wayne RBC 3.92 106/ul Critically low 4.70-6.10 [facility] Comment on above: Performed By: #### C NICOLE #### [facility] [address] [place] [address] Dr. Freda Wayne RDW 15.5 % Critically high 11.0-15.0 [facility] Comment on above: Performed By: #### C NICOLE #### [facility] [address] [place] [address] Dr. Freda Wayne SEG # 9.16 103/ul Critically high 1.40-6.50 [facility] Comment on above: Performed By: #### C NICOLE #### [facility] [address] [place], [place] [address] Dr. Freda Wayne SEG % 84.0 % Critically high 43.0-75.0 [facility] Comment on above: Performed By: #### C NICOLE #### [facility] [address] [place], [place] [address] Dr. Freda Wayne WBC 10.9 103/ul Normal 4.0-11.0 [facility] Comment on above: Performed By: #### C NICOLE #### [facility] [address] [place], [place] [address] Dr. Freda Wayne NM HEPATOBILIARY SCANon 05-16 NM HEPATOBILIARY SCAN EXAM: NM HEPATOBIL IARY SCAN HISTORY: Acute cholecystitis COMPARISON: CT abdomen pelvis 06/03/2021, right upper quadrant ultrasound 06/03/2021. TECHNIQUE: The patient was injected with 5.5 mCi technetium 99m mebrofenin and images were performed over 60 minutes followed by delayed imaging at 90 minutes, 2 hours and 3 hours. FINDINGS: There is normal uptake and excretion of the radiotracer by the liver into the biliary system and bowel. The gallbladder was not visualized throughout study out to 3 hours. IMPRESSION: Nonvisualization the gallbladder out to 3 hours, suspicious for acute cholecystitis in the appropriate clinical setting. Electronically authenticated by: CINDI RYAN Date: 2021-06-04 00:06 Normal [facility] POINT OF CARE GLUCOSEon 05-16 Glucose [Mass/Vol] 219 mg/dL Critically high 74-106 [facility] Comment on above: Performed By: #### P OCGLUC #### [facility] [address] [place], [place] [address] José Luis Kisha Glucose [Mass/Vol] 134 mg/dL Critically high 74-106 [facility] Comment on above: Performed By: #### P OCGLUC #### [facility] [address] [address] [address] Freda Wayne Glucose [Mass/Vol] 196 mg/dL Critically high 74-106 [facility] Comment on above: Performed By: #### P OCGLUC #### [facility] [address] [address] José Luis Beard PROF 14(COMP METB)on 021 Albumin [Mass/Vol] 2.8 g/dL Critically low 3.5-5.0 [facility] Comment on above: Performed By: #### C MP #### [facility] [address] [place] [address] Dr. Freda Wayne Albumin/Globulin [Mass ratio] 0.8 {ratio} Normal [facility] Comment on above: Performed By: #### C MP #### [facility] [address] [place] [address] Dr. Freda Wayne ALP [Catalytic activity/Vol] 131 U/L Critically high 38-126 [facility] Comment on above: Performed By: #### C MP #### [facility] [address] [place] [address] Dr. Freda Wayne ALT [Catalytic activity/Vol] 153 U/L Critically high 21-72 [facility] Comment on above: Performed By: #### C MP #### [facility] [address] [place] [address] Dr. Freda Wayne Anion gap [Moles/Vol] 12.6 mmol/L Normal [facility] Comment on above: Performed By: #### C MP #### [facility] [address] [address] [address] Freda Wayne AST [Catalytic activity/Vol] 79 U/L Critically high 17-59 [facility] Comment on above: Performed By: #### C MP #### [facility] [address] [place] [place] [address] Dr. Freda Wayne Bilirubin [Mass/Vol] 0.7 mg/dL Normal 0.2-1.3 [facility] [place] Comment on above: Performed By: #### C MP #### [facility] [address] [address] [address] Freda Wayne Calcium [Mass/Vol] 8.6 mg/dL Normal 8.4-10.2 [facility] [place] Comment on above: Performed By: #### C MP #### [facility] [address] [address] [address] Freda Wayne Chloride [Moles/Vol] 104 mmol/L Normal 98-107 [facility] [place] Comment on above: Performed By: #### C MP #### [facility] [address] [address] [address] Freda Wayne CO2 [Moles/Vol] 25.2 mmol/L Normal 22.0-30.0 [facility] [place] Comment on above: Performed By: #### C MP #### [facility] [address] [address] [address] Freda Wayne Creatinine [Mass/Vol] 1.30 mg/dL Critically high 0.66-1.25 [facility] [place] Comment on above: Performed By: #### C MP #### [facility] [address] [address] [address] Freda Wayne EGFR-AF ZAMBIAN >60 Normal >=60 [facility] [place] Comment on above: Performed By: #### C MP #### [facility] [address] [address] [address] Freda Wayne EGFR-NON AF ZAMBIAN 54 mL/min/1.73m2 Critically low >=60 [facility] [place] Comment on above: Performed By: #### C MP #### [facility] [address] [address] [address] Freda Wayne Globulin (S) [Mass/Vol] 3.3 g/dL Normal [facility] Comment on above: Performed By: #### C MP #### [facility] [address] [address] [address] Freda Wayne Glucose [Mass/Vol] 141 mg/dL Critically high 74-106 [facility] Comment on above: Performed By: #### C MP #### [facility] [address] [address] [address] Freda Wayne Potassium [Moles/Vol] 3.8 mmol/L Normal 3.4-5.0 [facility] [place] Comment on above: Performed By: #### C MP #### [facility] [address] [address] [address] Freda Wayne Protein [Mass/Vol] 6.1 g/dL Normal 6.1-8.2 [facility] [place] Comment on above: Performed By: #### C MP #### [facility] [address] [address] [address] Freda Wayne Sodium [Moles/Vol] 138 mmol/L Normal 137-145 [facility] [place] Comment on above: Performed By: #### C MP #### [facility] [address] [place] [address] Dr. Freda Wayne Urea nitrogen [Mass/Vol] 13.0 mg/dL Normal 9.0-20.0 [facility] [place] Comment on above: Performed By: #### C MP #### [facility] [address] [place] [address] Dr. Freda Wayne Urea nitrogen/Creatinine [Mass ratio] 10.0 mg/mg Normal [facility] [place] Comment on above: Performed By: #### C MP #### [facility] [address] [place] [address] Dr. Freda Wayne BLOOD CULTURE ID PANELon A. baumannii Not detected [facility] Comment on above: Performed By: #### B TIAGO #### [facility] [address] [place] [address] Dr. Freda Wayne BCID CONTROLS PASSED Normal [facility] [place] Comment on above: Performed By: #### B TIAGO #### [facility] [address] [place] [address] Dr. Freda Wayne BCIDBTHD BLOOD CULTURE BOTTLE INFORMATION Normal [facility] [place] Comment on above: Performed By: #### B TIAGO #### [facility] [address] [place] [address] Dr. Freda Wayne BCIDHD1 ANTIMICROBIAL RESIST ANCE GENES Normal [facility] Comment on above: Performed By: #### B TIAGO #### [facility] [address] [place] [address] Dr. Freda Wayne BCIDHD2 SEE BELOW [facility] Comment on above: Result Comment: KPC- carbapenem resistance gene, mecA- methecillin resistance gene, van A/B- vancomycin resistance gene Note: Antimicrobial resitance can occur via multiple mechanisms. A Not Detected result for the [employer] antomicrobial resistance gene assays does not indicate antimicrobial susceptibility. Subculturing is required for specis identificationand susceptibility testing of isolates. Performed By: #### B TIAGO #### [facility] [address] [place] [address] Dr. Freda Wayne BCIDHD3 Positive [facility] Comment on above: Performed By: #### B TIAGO #### [facility] [address] [place] [address] Dr. Freda Wayne BCIDHD4 Negative [facility] Comment on above: Performed By: #### B TIAGO #### [facility] [address] [place] [address] Dr. Freda Wayne BCIDHD5 YEAST [facility] Comment on above: Performed By: #### B TIAGO #### [facility] [address] [place] [address] Dr. Freda Wayne BCIDHD6 SEE BELOW [facility] Comment on above: Result Comment: Note : All genus and species BCID [employer] results will be verified post subculturing via Maldi-Tof MS testing methodology. Performed By: #### B TIAGO #### [facility] [address] [place] [address] Dr. Freda Wayne Bottle Set: Set 1 [facility] Comment on above: Performed By: #### B TIAGO #### [facility] [address] [place] [address] Dr. Freda Wayne Bottle: Aerobic Normal [facility] [place] Comment on above: Performed By: #### B TIAGO #### [facility] [address] [place] [address] Dr. Freda Wayne Yarely albicans Not detected [facility] Comment on above: Performed By: #### B TAIGO #### [facility] [address] [place] [address] Dr. Freda Wayne Yarely glabrata Not detected Normal [facility] [place] Comment on above: Performed By: #### B TIAGO #### [facility] [address] [address] [address] Freda Wayne Yarely Krusei Not detected Normal [facility] Comment on above: Performed By: #### B TIAGO #### [facility] [address] [address] [address] Freda Wayne Yarely Parapsilosis Not detected Normal [facility] Comment on above: Performed By: #### B TIAGO #### [facility] [address] [place] [address] Dr. Freda Wayne Yarely Tropicalis Not detected Normal [facility] [place] Comment on above: Performed By: #### B TIAGO #### [facility] [address] [place] [address] Dr. Freda Wayne E. Cloacae complex Not detected Normal [facility] [place] Comment on above: Performed By: #### B TIAGO #### [facility] [address] [place] [address] Dr. Freda Wayne Enterobacteriaceae Detected Critically abnormal [facility] Comment on above: Performed By: #### B TIAGO #### [facility] [address] [place] [address] Dr. Freda Wayne Enterococcus Not detected Normal [facility] [place] Comment on above: Performed By: #### B TIAGO #### [facility] [address] [place] [address] Dr. Freda Wayne Escheria coli Not detected Normal [facility] Comment on above: Performed By: #### B TIAGO #### [facility] [address] [place] [address] Dr. Freda Wayne K. oxytoca Not detected Normal [facility] [place] Comment on above: Performed By: #### B TIAGO #### [facility] [address] [place] [address] Dr. Freda Wayne K. pneumoniae Detected Critically abnormal [facility] Comment on above: Performed By: #### B TIAGO #### [facility] [address] [place] [address] Dr. Freda Wayne KPC Resistant Gene Not detected Normal [facility] [place] Comment on above: Performed By: #### B TIAGO #### [facility] [address] [place] [address] Dr. Freda Wayne List. monocytogenes Not detected Normal [facility] [place] Comment on above: Performed By: #### B TIAGO #### [facility] [address] [place] [address] Dr. Freda Wayne mecA Resistant Gene Not Applicable Normal [facility] Comment on above: Performed By: #### B TIAGO #### [facility] [address] [place] [address] Dr. Frdea Wayne Proteus Not detected Normal [facility] Comment on above: Performed By: #### B TIAGO #### [facility] [address] [place] [address] Dr. Freda Wayne Pseud. aeruginosa Not detected Normal [facility] Comment on above: Performed By: #### B TIAGO #### [facility] [address] [place] [address] Dr. Freda Wayne Seratia marcescens Not detected Normal [facility] [place] Comment on above: Performed By: #### B TIAGO #### [facility] [address] [place] [address] Dr. Freda Wayne Site: left AC Normal [facility] Comment on above: Performed By: #### B TIAGO #### [facility] [address] [place] [address] Dr. Freda Wayne Staph. aureus Not detected Normal [facility] [place] Comment on above: Performed By: #### B TIAGO #### [facility] [address] [place] [address] Dr. Freda Wayne Staphylococcus Not detected Normal [facility] Comment on above: Performed By: #### B TIAGO #### [facility] [address] [place] [address] Dr. Freda Wayne Strep. agalactiae Not detected Normal [facility] Comment on above: Performed By: #### B TIAGO #### [facility] [address] [place] [address] Dr. Freda Wayne Strep. pneumoniae Not detected Normal [facility] [place] Comment on above: Performed By: #### B TIAGO #### [facility] [address] [place] [address] Dr. Freda Wayne Strep. pyogenes Not detected Normal [facility] [place] Comment on above: Performed By: #### B TIAGO #### [facility] [address] [place] [address] Dr. Freda Wayne Streptococcus Not detected Normal [facility] Comment on above: Performed By: #### B TIAGO #### [facility] [address] [place] [address] Dr. Freda Vallejo/Kate Resist. Gene Not Applicable Normal [facility] Comment on above: Performed By: #### B TIAGO #### [facility] [address] [place] [address] Dr. Freda Wayne CBC W MANUAL DIFFon 06-03-20 ATYPICAL LYMPH # Normal [facility] [place] Comment on above: Performed By: #### P OCGLUC #### [facility] [address] [place] [address] José Luis Kisha ATYPICAL LYMPH % Normal [facility] Comment on above: Performed By: #### P OCGLUC #### [facility] [address] [place] [address] José Luis Kisha BAND # Normal 0.0-0.3 [facility] Comment on above: Performed By: #### P OCGLUC #### [facility] [address] [place] [address] José Luis Kisha BAND % Normal 0-5 [facility] Comment on above: Performed By: #### P OCGLUC #### [facility] [address] [place] [address] José Luis Kisha BASOM # 0.00 103/ul Normal 0.00-0.10 [facility] Comment on above: Performed By: #### P OCGLUC #### [facility] [address] [place] [address] José Luis Kisha BASOM % 0.0 % Critically low 0.2-2.0 [facility] Comment on above: Performed By: #### P OCGLUC #### [facility] [address] [address] José Luis Kisha BLAST # Normal [facility] Comment on above: Performed By: #### P OCGLUC #### [facility] [address] [address] José Luis Kisha BLAST % Normal [facility] Comment on above: Performed By: #### P OCGLUC #### [facility] [address] [place] [address] José Luis Kisha CORRECTED WBC Normal 4.0-11.0 [facility] Comment on above: Performed By: #### P OCGLUC #### [facility] [address] [place] [address] José Luis Kisha EOS # 0.00 103/ul Normal 0.00-0.70 [facility] [place] Comment on above: Performed By: #### P OCGLUC #### [facility] [address] [place] [address] José Luis Kisha EOS% 0.0 % Critically low 0.9-7.0 [facility] [place] Comment on above: Performed By: #### P OCGLUC #### [facility] [address] [place] [address] José Luis Kisha HCT 41.0 % Critically low 42.0-54.0 [facility] Comment on above: Performed By: #### P OCGLUC #### [facility] [address] [place] [address] José Luis Kisha HGB 13.0 g/dl Critically low 14.0-18.0 [facility] Comment on above: Performed By: #### P OCGLUC #### [facility] [address] [place] [address] José Luis Kisha LYMPHM # 0.18 103/ul Critically low 1.20-3.80 [facility] Comment on above: Performed By: #### P OCGLUC #### [facility] [address] [place] [address] José Luis Kisha LYMPHM% 1.0 % Critically low 20.5-60.0 [facility] Comment on above: Performed By: #### P OCGLUC #### [facility] [address] [place] [address] José Luis Beard MCH 28.6 pg Normal 25.9-34.0 [facility] Comment on above: Performed By: #### P OCGLUC #### [facility] [address] [place] [address] José Luis Beard MCHC 31.7 g/dl Normal 29.9-35.2 [facility] Comment on above: Performed By: #### P OCGLUC #### [facility] [address] [place] [address] José Luis Beard MCV 90.1 fL Normal 80.0-94.0 [facility] Comment on above: Performed By: #### P OCGLUC #### [facility] [address] [place] [address] José Luisdinh Mathuren METAMYELOCYTE # Normal [facility] Comment on above: Performed By: #### P OCGLUC #### [facility] [address] [place] [address] José Luisdinh Mathuren METAMYELOCYTE % Normal [facility] Comment on above: Performed By: #### P OCGLUC #### [facility] [address] [place] [address] José Luis Kisha MONOM# 0.55 103/ul Normal 0.30-0.80 [facility] Comment on above: Performed By: #### P OCGLUC #### [facility] [address] [place] [address] José Luisdinh Beard MONOM% 3.0 % Normal 1.7-12.0 [facility] Comment on above: Performed By: #### P OCGLUC #### [facility] [address] [place] [address] José Luis Beard MPV 10.1 fL Normal 9.5-13.5 [facility] Comment on above: Performed By: #### P OCGLUC #### [facility] [address] [place] [address] José Luisdinh Mathuren MYELOCYTE # Normal [facility] Comment on above: Performed By: #### P OCGLUC #### [facility] [address] [id number] José Luis Beard MYELOCYTE % Normal [facility] Comment on above: Performed By: #### P OCGLUC #### [facility] [address] [address] José Luis Beard NRBC Normal [facility] Comment on above: Performed By: #### P OCGLUC #### [facility] [address] [address] José Luis Beard PLT 374 103/ul Normal 150-450 [facility] Comment on above: Performed By: #### P OCGLUC #### [facility] [address] [place] [address] José Luis Beard RBC 4.55 106/ul Critically low 4.70-6.10 [facility] Comment on above: Performed By: #### P OCGLUC #### [facility] [address] [place] [address] José Luis Beard RDW 15.6 % Critically high 11.0-15.0 [facility] Comment on above: Performed By: #### P OCGLUC #### [facility] [address] [place] [address] José Luis Beard SEG # 17.57 103/ul Critically high 1.40-6.50 [facility] [place] Comment on above: Performed By: #### P OCGLUC #### [facility] [address] [place] [address] José Luis Beard SEG % 96.0 % Critically high 43.0-75.0 [facility] Comment on above: Performed By: #### P OCGLUC #### [facility] [address] [place] [address] José Luis Beard WBC 18.3 103/ul Critically high 4.0-11.0 [facility] Comment on above: Performed By: #### P OCGLUC #### [facility] [address] [place] [address] ABD/PELV W CONon 06-03-[address] ABD/PELV W CON EXAMINATION: CT ABD/ PELV W CON HISTORY: GENERALIZED ABDOMINAL PAIN , acute right upper quadrant pain COMPARISON: CT abdomen pelvis 09/18/2010 TECHNIQUE: Axial, Coronal, and Sagittal images were created with IV contrast. Dose reduction techniques were achieved by using automated exposure control and/or adjustment of mA and/or kV according to patient size and/or use of iterative reconstruction technique. FINDINGS: LUNG BASES: No visible pulmonary or pleural disease. LIVER: No enlargement, atrophy, abnormal density, or significant focal lesion. BILIARY: Indistinctness of the margins of the proximal gallbladder and neck without appreciable stone or definite wall thickening. PANCREAS: No lesion, fluid collection, ductal dilatation, or atrophy. SPLEEN: No enlargement or focal lesion. ADRENALS: No mass or enlargement. KIDNEYS: No mass, obstruction, or calcification. A couple benign-appearing left renal cysts. BOWEL/MESENTERY: Diverticulosis of descending and proximal sigmoid colon without acute inflammatory changes. No visible mass, obstruction, or bowel wall thickening. AORTA/VASCULAR: No aneurysm or dissection. RETROPERITONEUM: No mass or adenopathy. LYMPH NODES: No adenopathy. URINARY BLADDER: No visible focal wall thickening, lesion, or calculus. PELVIC ORGANS: No visible mass. Pelvic organs appropriate for patient age. ABDOMINAL WALL: No mass or hernia. BONES: No bony lesion or fracture. OTHER: Negative. IMPRESSION: 1. Findings suspicious for acalculous cholecystitis. Consider ultrasound evaluation. 2. Diverticulosis of the distal colon without acute inflammatory changes. Electronically authenticated by: CINDI SOMMER Date: 2021-06-03 14:15 Normal [facility] CULTURE BLOODon 06-03-2021 Microscopic examination of blood, culture Culture Observations: NO GROWTH AT 5 DAYS. Normal [facility] Comment on above: Performed By: #### B LDCX2 #### [facility] [address] [address] [address] Freda Wayne [facility] 05-16 SARS-CoV-2 (COVID-19) RNA SHRUTI+probe Ql (Unsp spec) Not detected Normal NOT DETECTED [facility] Comment on above: Result Comment: When diagnostic testing is negative, the possibility of a false negative should be considered in the context of a patient's recent exposures and the presence of clinical signs and symptoms consistent with SARS-CoV-2. This test is not yet approved or cleared by the [place] Food and Drug Administration (FDA). This test was developed by [facility], [place], [place]. The performance characteristics of this test were validated by [facility]. The results are not intended to be used as the sole means for clinical diagnosis or patient management decisions. [facility] is authorized under Clinical Laboratory Improvement Amendments (CLIA) to perform high- complexity testing. This test is not yet approved or cleared by the [place] FDA. When there are no FDA-approved or cleared tests available, and other criteria are met, FDA can make tests available under an emergency access mechanism called an Emergency Use Authorization (EUA). The EUA for this test is supported by the [place] of Health and Human Service's declaration that circumstances exist to justify the emergency use of in vitro diagnostics for the detection and/or diagnosis of the virus that causes COVID-19. This EUA will remain in effect for the duration of the COVID-19 declaration justifying emergency of IVDs, unless it is terminated or revoked by the FDA (after which the test may no longer be used). Performed By: #### C BCMAN #### [facility] [address] [place] [address] Dr. Freda Wayne ER URINE PROFILEon 1 Bilirubin Ql (U) Negative Normal NEGATIVE [facility] Comment on above: Performed By: #### P OCGLUC #### [facility] [address] [place] [address] José Luis Kisha Clarity (U) CLEAR Normal CLEAR [facility] Comment on above: Performed By: #### P OCGLUC #### [facility] [address] [place] [address] José Luis Kisha Color (U) YELLOW Normal YELLOW [facility] Comment on above: Performed By: #### P OCGLUC #### [facility] [address] [place] [address] José Luis Kisha ERUAHD A micrscopic examina tion will be performed if indicated. Normal [facility] Comment on above: Performed By: #### P OCGLUC #### [facility] [address] [place] [address] José Luis Kisha Glucose Ql (U) 100 mg/dl Abnormal NEGATIVE [facility] Comment on above: Performed By: #### P OCGLUC #### [facility] [address] [place] [address] José Luis Kisha Hemoglobin Ql (U) Negative Normal NEGATIVE [facility] Comment on above: Performed By: #### P OCGLUC #### [facility] [address] [place] [address] José Luis Kisha Ketones Ql (U) Negative Normal NEGATIVE [facility] Comment on above: Performed By: #### P OCGLUC #### [facility] [address] [place] [address] José Luis Kisha LEUKOCYTES Negative Normal NEGATIVE [facility] Comment on above: Performed By: #### P OCGLUC #### [facility] [address] [place] [address] José Luis Kisha Nitrite Ql (U) Negative Normal NEGATIVE [facility] Comment on above: Performed By: #### P OCGLUC #### [facility] [address] [place] [address] José Luis Kisha pH (U) 6.0 [pH] Normal 5-9 [facility] Comment on above: Performed By: #### P OCGLUC #### [facility] [address] [place] [address] José Luis Kisha Protein (U) [Mass/Vol] 30 mg/dL Abnormal NEGAT CYNTHIA/ TRACE [facility] Comment on above: Performed By: #### P OCGLUC #### [facility] [address] [place] [address] José Luis Kisha SPEC GRAVITY 1.020 Normal 1.005-<=1. 025 [facility] Comment on above: Performed By: #### P OCGLUC #### [facility] [address] [place] [address] José Luis Mathuren UR MICRO IND INDICATED Normal [facility] [facility] Comment on above: Performed By: #### P OCGLUC #### [facility] [address] [place] [address] José Luis Kisha Urobilinogen Qn (U) 1.0 {Bassem'U}/dL Normal 0.2 - 1. 0 [facility] Comment on above: Performed By: #### P OCGLUC #### [facility] [address] [place] [address] José Luis Beard LACTATE/LACTIC ACIDon 2020 Lactate [Moles/Vol] 2.0 mmol/L Normal 0.7-2.0 [facility] Comment on above: Performed By: #### P OCGLUC #### [facility] [address] [place] [address] Dr. Freda Wayne LIPASEon 06-03-2021 Lipase [Catalytic activity/Vol] 207.0 U/L Normal 23.0-300.0 [facility] Comment on above: Performed By: #### P OCGLUC #### [facility] [address] [place] [address] Dr. Freda Wayne POINT OF CARE GLUCOSEon 05-16 Glucose [Mass/Vol] 107 mg/dL Critically high 74-106 [facility] Comment on above: Performed By: #### P OCGLUC #### [facility] [address] [place] [address] José Luis Beard PROF 14(COMP METB)on 021 Albumin [Mass/Vol] 3.9 g/dL Normal 3.5-5.0 [facility] Comment on above: Performed By: #### P OCGLUC #### [facility] [address] [place] [address] Dr. Freda Wayne Albumin/Globulin [Mass ratio] 1.1 {ratio} Normal [facility] Comment on above: Performed By: #### P OCGLUC #### [facility] [address] [place] [address] Dr. Freda Wayne ALP [Catalytic activity/Vol] 181 U/L Critically high 38-126 [facility] Comment on above: Performed By: #### P OCGLUC #### [facility] [address] [place] [address] Dr. Freda Wayne ALT [Catalytic activity/Vol] 196 U/L Critically high 21-72 [facility] Comment on above: Performed By: #### P OCGLUC #### [facility] [address] [address] [address] Freda Wayne Anion gap [Moles/Vol] 15.4 mmol/L Normal [facility] Comment on above: Performed By: #### P OCGLUC #### [facility] [address] [address] [address] Freda Wayne AST [Catalytic activity/Vol] 217 U/L Critically high 17-59 [facility] Comment on above: Performed By: #### P OCGLUC #### [facility] [address] [address] [address] Freda Wayne Bilirubin [Mass/Vol] 1.1 mg/dL Normal 0.2-1.3 [facility] Comment on above: Performed By: #### P OCGLUC #### [facility] [address] [address] [address] Freda Wayne Calcium [Mass/Vol] 9.7 mg/dL Normal 8.4-10.2 [facility] Comment on above: Performed By: #### P OCGLUC #### [facility] [address] [address] [address] Freda Wayne Chloride [Moles/Vol] 101 mmol/L Normal 98-107 [facility] Comment on above: Performed By: #### P OCGLUC #### [facility] [address] [address] [address] Freda Wayne CO2 [Moles/Vol] 24.4 mmol/L Normal 22.0-30.0 [facility] Comment on above: Performed By: #### P OCGLUC #### [facility] [address] [address] [address] Freda Wayne Creatinine [Mass/Vol] 1.16 mg/dL Normal 0.66-1.25 [facility] Comment on above: Performed By: #### P OCGLUC #### [facility] [address] [address] [address] Freda Wayne EGFR-AF ZAMBIAN >60 Normal >=60 [facility] Comment on above: Performed By: #### P OCGLUC #### [facility] [address] [address] [address] Freda Wayne EGFR-NON AF ZAMBIAN >60 Normal >=60 [facility] Comment on above: Performed By: #### P OCGLUC #### [facility] [address] [address] [address] Freda Wayne Globulin (S) [Mass/Vol] 3.6 g/dL Normal [facility] Comment on above: Performed By: #### P OCGLUC #### [facility] [address] [address] [address] Freda Wayne Glucose [Mass/Vol] 213 mg/dL Critically high 74-106 [facility] Comment on above: Performed By: #### P OCGLUC #### [facility] [address] [address] [address] Freda Wayne Potassium [Moles/Vol] 3.8 mmol/L Normal 3.4-5.0 [facility] Comment on above: Performed By: #### P OCGLUC #### [facility] [address] [address] [address] Freda Wayne Protein [Mass/Vol] 7.5 g/dL Normal 6.1-8.2 [facility] Comment on above: Performed By: #### P OCGLUC #### [facility] [address] [address] [address] Freda Wayne Sodium [Moles/Vol] 137 mmol/L Normal 137-145 [facility] Comment on above: Performed By: #### P OCGLUC #### [facility] [address] [address] [address] Freda Wayne Urea nitrogen [Mass/Vol] 16.0 mg/dL Normal 9.0-20.0 [facility] Comment on above: Performed By: #### P OCGLUC #### [facility] [address] [address] [address] Freda Wayne Urea nitrogen/Creatinine [Mass ratio] 13.8 mg/mg Normal [facility] Comment on above: Performed By: #### P OCGLUC #### [facility] [address] [address] [address] Freda Wayne PROTIMEon 06-03-2021 INR Coag (PPP) [Relative time] 1.05 {INR} Normal [facility] Comment on above: Performed By: #### P T, PTT #### [facility] [address] [place] [address] Dr. Freda Wayne INR GUIDELINES SEE BELOW Normal [facility] Comment on above: Result Comment: KAYLA RED INR: 2.0 - 3.0 CONDITIONS NOT LISTED BELOW 2.5 - 3.5 FOR PROSTHETIC HEART VALVE REPLACEMENT 2.5 - 3.5 RECURRENT THROMBOSIS Performed By: #### P T, PTT #### [facility] [address] [place] [address] Dr. Freda Wayne PT Coag (PPP) [Time] 11.3 s Normal 9.0-11.6 [facility] Comment on above: Performed By: #### P T, PTT #### [facility] [address] [place] [address] Dr. Freda Wayne PTTon 06-03-2021 aPTT Coag (Bld) [Time] 28.2 s Normal 22.3-36.2 [facility] Comment on above: Performed By: #### P T, PTT #### [facility] [address] [place] [address] Dr. Freda Wayne TROPONIN, HIGH SENSITIVITYon 06-03-2021 HSTROP 10.8 pg/mL Normal 4.0-42.2 [facility] Comment on above: Result Comment: CUT- OFF POINTS HAVE BEEN ESTABLISHED BASED ON THE FOURTH UNIVERSAL DEFINITIONS OF MYOCARDIAL INFARCTION. THE UPPER REFERENCE LIMIT (URL) OF TROPONIN, DEFINED THE 99TH PERCENTILE OF cTnI DISTRIBUTION IN A REFERENCE POPULATION, HAS BEEN CONFIRMED THE DECISION THRESHOLD FOR [place] DIAGNOSIS. Performed By: #### P OCGLUC #### [facility] [address] [place] [address] Dr. Freda Wayne URINE MICROSCOPIC ONLYon BACTERIA NONE SEEN Normal NONE SEEN [facility] Comment on above: Performed By: #### P OCGLUC #### [facility] [address] [place] [address] José Luis Kisha Bacteria identified Cx Nom (U) NOT INDICATED Normal [facility] Comment on above: Performed By: #### P OCGLUC #### [facility] [address] [place] [address] José Luis Kisha CAST NONE SEEN Normal NONE SEEN [facility] Comment on above: Performed By: #### P OCGLUC #### [facility] [address] [place] [address] José Luis Kisha Crystals LM Nom (Urine sed) NONE SEEN Normal NONE SEEN [facility] Comment on above: Performed By: #### P OCGLUC #### [facility] [address] [place] [address] José Luis Kisha Epithelial cells LM Ql (Urine sed) RARE Normal NONE SEEN /RARE [facility] Comment on above: Performed By: #### P OCGLUC #### [facility] [address] [place] [address] José Luis Kisha MUCOUS TRACE Abnormal NONE SEEN [facility] Comment on above: Performed By: #### P OCGLUC #### [facility] [address] [place] [address] José Luis Kisha RBC 0-2 Normal 0-2 [facility] Comment on above: Performed By: #### P OCGLUC #### [facility] [address] [place] [address] José Luis Kisha WBC 0-2 Abnormal NONE SEEN [facility] Comment on above: Performed By: #### P OCGLUC #### [facility] [address] [place], [place] [id number] José Luis Kisha US SINGLE QUAD RT UPPERon US SINGLE QUAD RT UPPER EXAMINATION: US SINGLE QUAD RT UPPER HISTORY: NAUSEA WITH VOMITING, UNSPECIFIED , abdominal pain COMPARISON: Ultrasound abdomen 03/16/2013 TECHNIQUE: Transabdominal evaluation of the right upper quadrant. FINDINGS: LIVER: Normal size and echotexture. Color Doppler demonstrates patent hepatic veins. PORTAL VEIN: Duplex Doppler demonstrates normal hepatopetal flow pattern with flow velocity averaging 44 cm/s. GALLBLADDER: No visible gallstones, wall thickening, or pericholecystic free fluid. Negative sonographic Mitchell's sign. BILIARY: No abnormal dilation or stones. Common bile duct diameter is within normal limits. PANCREASE: No visible mass, abnormal atrophy, or duct dilation. KIDNEY: No hydronephrosis. No visible mass or stones. Mild cortical thinning. Size: 11.4 x 6.4 x 6.0 cm IMPRESSION: 1. No acute or suspicious findings to account for patient's symptoms. Electronically authenticated by: CINDI SOMMER Date: 2021-06-03 09:27 Normal [facility] XR CHEST 1 Von 06-03-2021 XR CHEST 1 V EXAMINATION: XR CHES T 1 V HISTORY: NAUSEA WITH VOMITING, UNSPECIFIED , acute right upper quadrant pain COMPARISON: XR chest 04/04/2015 FINDINGS: LUNGS: No significant pulmonary parenchymal abnormalities. VASCULATURE: No increased pulmonary vasculature. PLEURA: No pneumothorax, effusion, or pleural thickening. CARDIAC: No cardiomegaly or cardiac silhouette abnormality. MEDIASTINUM: No visible mass or adenopathy. BONES: No fracture or visible bone lesion. OTHER: Negative. IMPRESSION: 1. No acute cardiac pulmonary process. Stable chest. Electronically authenticated by: CINDI SOMMER Date: 2021-06-03 09:56 Normal [facility] Note - Heme Onc Sched ulingon 05-22-2021 Clinic Note - Heme Onc Scheduling Retrieve Patient Instructions: Patient Instructions: Patient Instructions: RetrievePatient Instructions COMMUNICATION ORDERS NOTES: Communication Orders NotesPer scheduling note on appointment wifes patient wants apt on 08/26 End of Visit Documentation: Clinic Location/Phone Number: Clinic Location/Phone Number: [place] [phone] End Of Visit MU Report Item: Visit Summary given or mailed to patientyes Mailed Appointments Electronic Signatures: Candice Shirley (PT ACCT REP) (Signed 22-May-2021 10:02) Authored: Retrieve Patient Instructions, COMMUNICATION ORDERS NOTES, End of Visit Documentation Last Updated: 22-May-2021 10:02 by Candice Shirley (PT ACCT REP) Normal [facility] Note - Heme Onc-Follo w Up Visiton 05-20-2021 Clinic Note - Heme Onc-Follow Up Visit Patient Visit Information: Visit Type: Follow Up Visit History of Present Illness: ID Statement: YUSEF CAR is a 71 year old Male Chief Complaint: Duodenal neuroendocrine tumor Interval History: 70 years old gentleman from [place], [place] who has been referred to me from [facility]. The patient complained of acid reflux for more than 20 years and he also had intermittent gastric ulcers before. But recently around 06/2020 he started having epigastric pain with worsening of his acid reflux. And his primary care physician sent him to do abdominal ultrasound and then HIDA scan was results were normal with no evidence of biliary obstruction or cholecystitis. 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 Restaging imaging exclude metastatic disease. No more abdominal pain, he denies any nausea or vomiting, or change in bowel movement. He denies any carcinoid features. PMH Hypertension, type 2 diabetes, MVP PSH: Non significant FH: His sister had breast cancer, maternal and paternal grandmothers had stomach cancer Review of Systems: Review of Systems: Positive for the HPI and negative for the rest of 14 systems Allergies and Intolerances: Allergies: lisinopril: Drug, Other, Active Cipro: Drug, Other, Active erythromycin: Drug, Other, Active Outpatient Medication Profile: * No Current Medications as of 01-May-2021 08:18 documented in Structured Notes allopurinol 300 mg oral tablet: 1 tab(s) orally once a day furosemide 20 mg oral tablet: 1 tab(s) orally once a day omeprazole 40 mg oral delayed release capsule: 1 cap(s) orally 2 times a day sucralfate 1 g oral tablet: 1 tab(s) orally 4 times a day (before meals and at bedtime) amLODIPine 10 mg oral tablet: 1 tab(s) orally once a day bisoprolol 5 mg oral tablet: 1 tab(s) orally once a day fluticasone propionate 55 mcg/inh inhalation powder: inhaled once a day (at bedtime) losartan 100 mg oral tablet: 1 tab(s) orally once a day glimepiride 4 mg oral tablet: 1 tab(s) orally 2 times a day pioglitazone 30 mg oral tablet: 1 tab(s) orally once a day rosuvastatin 10 mg oral tablet: 1 tab(s) orally once a day Medical History: Duodenal nodule: ICD-10: K31.89, Status: Active Liver lesion: ICD-10: K76.9, Status: Active 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 Social History: Social Substance History: Smoking Statusnever smoker (1) Tobacco Usedenies Alcohol Useoccasionally Drug Usedenies Vitals and Measurements: Vitals: Temp: 35.9 HR: 79 RR: 16 BP: 115/75 SPO2%: 96 Measurements: HT(cm): 176.8 WT(kg): 109 BSA: 2.31 BMI: 34.8 Physical Exam: Constitutional: Appears well and in NAD Eyes: PERRL, EOMI, clear sclera ENMT: mucous membranes moist, no apparent injury, no lesions seen Head/Neck: Neck supple, no apparent injury, thyroid without mass or tenderness, No JVD, trachea midline Respiratory/Thorax: Patent airways, CTAB, normal breath sounds with good chest expansion, thorax symmetric Cardiovascular: Regular, rate and rhythm, no murmurs, 2+ equal pulses of the extremities, normal S 1and S 2 Gastrointestinal: Non-distended, soft, non-tender, no rebound tenderness or guarding, no masses palpable, no organomegaly, +BS Musculoskeletal: ROM intact, no joint swelling, normal strength Extremities: normal extremities, no cyanosis edema, contusions or wounds, no clubbing Neurological: alert and oriented x3, intact senses, motor, response and reflexes, normal strength Lymphatic: No significant lymphadenopathy Psychological: Appropriate mood and behavior Skin: Warm and dry, no lesions, no rashes Lab Results: Results CBC date/time WBC HGB HCT PLT Neut 11-Jan-2021 08:30 7.7 12.9(L) 40.9(L) 360 5.68(H) 26-Dec-2020 08:49 N/A N/A N/A N/A N/A 25-Dec-2020 13:40 11.4(H) 13.0(L) 40.2(L) 401 8.78(H) BMP date/time NA K CL CO2 BUN CREAT 11-Jan-2021 08:30 140 4.5 103 N/A 19 1.20 26-Dec-2020 08:49 N/A N/A N/A N/A N/A N/A 25-Dec-2020 13:40 138 4.3 104 N/A 30(H) 1.15 Radiology Result: Results Impression: No definite evidence of roselia or metastatic disease. 1. Equivocal thickening along medial wall of the 2nd portion of duodenum. Endoscopy correlation recommended. 2. Heterogeneity involving pancreatic head, likely age related changes. 3. Single subcentimeter hypodensity within segment 4A of the liver, too small to be characterized. 4. Bilateral adrenal nodules, though some of them are fat containing and benign in nature, largest measuring up to 2.3 x 2 cm in left adrenal gland needs further evaluation with MRI. 5. Multiple hypodensities involving bilateral kidneys, likely representing simple renal cysts. 6. No (more content not included)... Normal [facility] Note - Intakeon 05-20 Clinic Note - Intake Patient Visit Information: Visit TypeFollow Up Visit Source of Informationpatient Admission Information: Admission Since Last VisitYes Admission Reason/DetailsNovember 2020- endocope Vital Signs: Temp (degrees C)36.2 degrees C Temperatureskin Heart Rate (beats/min)60 beats per minute Respiration (breaths/min)18 breath per minute BP Systolic (mm Hg)132 mmHg BP Diastolic (mm Hg)79 mmHg BP Mean (mm Hg)96 mmHg Height in cm176.8 centimeter(s) Height Methodstated Heightstanding Weight in kg107 kilogram(s) Weight Methodstanding scale BMI (kg/m2)34.2 kg/M2 BSA (m2)2.29 M2 Last 3 Weights & HeightsDate: Weight/Scale Type:Height: 04-Feb-2021 09:28079 kg / standing lvelp445.8 cm 07-Jan-2021 13:70350 kg / standing skiwr809.8 cm 19-Dec-2020 13:88033 kg / standing qzueg760.8 cm SpO2 (%)98 % SpO2 Patient Onroom air Pain Screening: Patient States Painno (0) Pain Scale UsedNumeric (0-10) Allergies: lisinopril: Drug, Other, Active Cipro: Drug, Other, Active erythromycin: Drug, Other, Active Outpatient Medication Profile: * Patient Currently Takes Medications as of 20-May-2021 12:53 documented in Structured Notes allopurinol 300 mg oral tablet: Last Dose Taken: , 1 tab(s) orally once a day furosemide 20 mg oral tablet: Last Dose Taken: , 1 tab(s) orally once a day omeprazole 40 mg oral delayed release capsule: Last Dose Taken: , 1 cap(s) orally once a day amLODIPine 10 mg oral tablet: Last Dose Taken: , 1 tab(s) orally once a day bisoprolol 5 mg oral tablet: Last Dose Taken: , 1 tab(s) orally once a day fluticasone propionate 55 mcg/inh inhalation powder: Last Dose Taken: , inhaled once a day (at bedtime) losartan 100 mg oral tablet: Last Dose Taken: , 1 tab(s) orally once a day glimepiride 4 mg oral tablet: Last Dose Taken: , 1 tab(s) orally 2 times a day pioglitazone 30 mg oral tablet: Last Dose Taken: , 1 tab(s) orally once a day rosuvastatin 10 mg oral tablet: Last Dose Taken: , 1 tab(s) orally once a day Notification: NotificationsAnnual Screens Due Dates Advanced Directives: May 01, 2022 Family Violence: May 01, 2022 Depression (Due every 6 months for ONC only; all others use Annual date): October 28, 2021 Substance Use - Alcohol: May 01, 2022 Substance Use - Drugs: Dec 19, 2021 Nutrition: Dec 19, 2021 Learning: Dec 19, 2021 Travel History: COVID-19 Screening Completedno exposure or symptoms Travel or ExposureNO travel to International locations in the past 30 days Falls: Have you fallen in the last 6 monthsno Do you have a fear of fallingno Do you feel you need assistanceno Is the patient using an assistive deviceno Not a falls riskimplement environmental risk factors interventions Spiritual/Procedural: Spiritual/cultural/religi ous practices important for us to knowno Oncology Nutrition: I am now taking(1) normal food but less than normal amount During the past 2 weeks, weight has(0) not changed Intake past month, compared to normal intake(1) less than usual Problems keeping me from eating past 2 weeks (0) no problem eating In the past month, my activity/functioning rating is(0) normal with no limitations Score 6 or > notify clinician2 Electronic Signatures: Edith Ruvalcaba) (Signed 20-May-2021 12:55) Authored: Patient Visit Information, Vital Signs, Allergies, Outpatient Medication Profile, Notification, Travel History, Falls, Spiritual/Procedural, Oncology Nutrition Last Updated: 20-May-2021 12:55 by Edith Ruvalcaba) Normal [facility] - Chemistry and C hemistry - challengeon 05-01-2021 Glucose [Mass/Vol] 132 mg/dL above high threshold 74 - 99 [facility] [place] [facility] [address] DO Work Phone: No Panel Informationon 05-01 [facility] [place] [facility] [address] DO Work Phone: [email or web address]={[email or web address] [id number] [email or web address]} [facility] [place] [facility] [address] DO Work Phone: [facility] [place] [facility] [address] DO Work Phone: Coronavirus 2019 RNA by PCR, Screening Asymptomticon 04-29-2021 Coronavirus 2019 RNA by PCR, Screening Asymptomtic Not detected Normal See Below [facility] [place] [facility] [address] DO Work Phone: Comment on above: SOURCE: Nasal, Nasop haryngealReference Range: Not Detected.This assay is designed to detect the N, ORF1ab and/or S genes of SARS-CoV-2 via nucleic acid amplification. A Negative (NOT DETECTED) result does not preclude 2019-nCoV infection since the adequacy of sample collection and/or low viral burden may result in presence of viral nucleic acids below the clinical sensitivity of this test method. Negative (NOT DETECTED) result should not be used as the sole basis for treatment or other patient management decisions. Rather negative results should be combined with clinical observations, patient history, and epidemiological information to make patient management decisions.Fact sheet for providers: https://www.fda.gov/media/227687/downloadFact sheet for patients: https://www.fda.gov/media/619935/downloadThis test has received FDA Emergency Use Authorization (EUA) and has been verified by [facility] ([facility]). This test is only authorized for the duration of time that circumstances exist to justify the authorization of the emergency use of in vitro diagnostic tests for the detection of SARS-CoV-2 virus and/or diagnosis of COVID-19 infection under section 564(b)(1) of the Act, 21 U.S.C. 360bbb-3(b)(1), unless the authorization is terminated or revoked sooner. [facility] is certified under CLIA-88 as qualified to perform high complexity testing. Testing is performed in the [facility] laboratories located at [address] [place] [address]. Provider Communicationon Provider Communication Dear Dr. Steele, Dr. Knowles and Dr. Gould, I had the pleasure of evaluating your patient YUSEF CAR. 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 I recommend endoscopic surveillance in 3 months and will arrange for this test. Thank you so much for allowing me to take part in the care of your patient. Should your symptoms persist, please return to the office. 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) Surgical History Problems History of Appendectomy History of Bunionectomy History of Shoulder surgery Social History Problems No alcohol use Non-smoker (V49.89) (Z78.9) Family History Problems No pertinent family history : Mother, Father Current Meds Primary malignant neuroendocrine neoplasm of duodenum Amoxicillin-Pot Clavulanate 875-125 MG Oral Tablet; TAKE 1 TABLET EVERY 12 HOURS UNTIL GONE Omeprazole 40 MG Oral Capsule Delayed Release; TAKE 1 CAPSULE TWICE DAILY Sucralfate 1 GM Oral Tablet; TAKE 1 TABLET 4 TIMES DAILY, BEFORE MEALS AND AT BEDTIME Unlinked Allopurinol 300 MG Oral Tablet amLODIPine Besylate 10 MG Oral Tablet Bisoprolol Fumarate 5 MG Oral Tablet Fluticasone Propionate CREA Furosemide 20 MG Oral Tablet Glimepiride 4 MG Oral Tablet Losartan Potassium 100 MG Oral Tablet Omeprazole 10 MG Oral Capsule Delayed Release Pioglitazone HCl - 30 MG Oral Tablet Rosuvastatin Calcium 10 MG Oral Tablet Allergies Medication ciprofloxacin Lisinopril TABS Signatures Electronically signed by : Irwin Cespedes MD; Feb 05 2021 2:42PM EST (Author) Normal [facility] [facility] - Chemistry and C hemistry - challengeon 01-23-2021 Glucose [Mass/Vol] 106 mg/dL above high threshold 74 - 99 [facility] 450 DO Work Phone: No Panel Informationon 01-23 [facility] [place] [facility] 450 DO Work Phone: [email or web address] [id number] [id number]} [facility] [place] [place] 450 DO Work Phone: [facility] 450 DO Work Phone: Complete Blood Count + Diffe rentialon 01-11-2021 Basophils/100 WBC (Bld) 0.4 % 0.0 - 2.0 U [facility] Work Phone: Erythrocyte distribution width (RBC) [Ratio] 15.6 % above high threshold See Below [facility] Work Phone: Comment on above: Reference Range: 11. 5 - 14.5 Hematocrit (Bld) [Volume fraction] 40.9 % below low threshold See Below [facility] Work Phone: [phone] Comment on above: Reference Range: 41. 0 - 52.0 Hemoglobin (Bld) [Mass/Vol] 12.9 g/dL below low threshold See Below [facility] Work Phone: [phone] Comment on above: Reference Range: 13. 5 - 17.5 Lymphocytes/100 WBC (Bld) 16.1 % See Below [facility] Work Phone: [phone] Comment on above: Reference Range: 13. 0 - 44.0 MCHC (RBC) [Mass/Vol] 31.5 g/dL below low threshold See Below [facility] Work Phone: [phone] Comment on above: Reference Range: 32. 0 - 36.0 MCV (RBC) [Entitic vol] 92 fL 80 - 100 U [facility] Work Phone: [phone] Monocytes/100 WBC (Bld) 7.4 % 2.0 - 10.0 [facility] Work Phone: [phone] Neutrophils/100 WBC (Bld) 73.8 % See Below [facility] Work Phone: [phone] Comment on above: Reference Range: 40. 0 - 80.0 Platelets (Bld) [#/Vol] 360 10*3/uL 150 - 450 [facility] Work Phone: [phone] RBC (Bld) [#/Vol] 4.45 {x10E12/L} below low threshold See Below [facility] Work Phone: [phone] Comment on above: Reference Range: 4.5 0 - 5.90 WBC (Bld) [#/Vol] 7.7 10*3/uL 4.4 - 11.3 [facility] Work Phone: [phone] Complete Blood Count + Differential 0.03 {x10E9/L} See Below [facility] Work Phone: [phone] Comment on above: Reference Range: 0.0 0 - 0.10 Complete Blood Count + Differential 0.15 {x10E9/L} See Below [facility] Work Phone: Comment on above: Reference Range: 0.0 0 - 0.40 Complete Blood Count + Differential 0.57 {x10E9/L} See Below [facility] Work Phone: Comment on above: Reference Range: 0.0 5 - 0.80 Complete Blood Count + Differential 1.24 {x10E9/L} See Below [facility] Work Phone: Comment on above: Reference Range: 0.8 0 - 3.00 Complete Blood Count + Differential 5.68 {x10E9/L} above high threshold See Below [facility] Work Phone: Comment on above: Reference Range: 1.6 0 - 5.50 Complete Blood Count + Differential 2.0 % 0.0 - 6.0 [facility] Work Phone: Complete Blood Count + Differential 0.3 % 0.0 - 0.9 [facility] Work Phone: Comment on above: Immature Granulocyte Count (IG) includes promyelocytes, myelocytes and metamyelocytes but does not include bands. Percent differential counts (%) should be interpreted in the context of the absolute cell counts (cells/L). Laboratory - Chemistry and C hemistry - challengeon 01-11-2021 Albumin BCP dye [Mass/Vol] 4.1 g/dL 3.4 - 5.0 [facility] Work Phone: ALP [Catalytic activity/Vol] 82 U/L 33 - 136 [facility] Work Phone: ALT With P-5'-P [Catalytic activity/Vol] 12 U/L 10 - 52 [facility] Work Phone: Comment on above: Patients treated wit h Sulfasalazine may generate falsely decreased results for ALT. Anion gap [Moles/Vol] 12 mmol/L 10 - 20 [facility] Work Phone: AST With P-5'-P [Catalytic activity/Vol] 12 U/L 9 - 39 [facility] Work Phone: Bilirubin [Mass/Vol] 0.5 mg/dL 0.0 - 1.2 [facility] Work Phone: Calcium [Mass/Vol] 9.8 mg/dL 8.6 - 10.3 [facility] Work Phone: Chloride [Moles/Vol] 103 mmol/L 98 - 107 [facility] Work Phone: CO2 [Moles/Vol] 30 mmol/L 21 - 32 [facility] Work Phone: Creatinine [Mass/Vol] 1.20 mg/dL See Below [facility] Work Phone: Comment on above: Reference Range: 0.5 0 - 1.30 Glucose [Mass/Vol] 147 mg/dL above high threshold 74 - 99 [facility] Work Phone: Potassium [Moles/Vol] 4.5 mmol/L 3.5 - 5.3 [facility] Work Phone: Protein [Mass/Vol] 7.0 g/dL 6.4 - 8.2 [facility] Work Phone: Sodium [Moles/Vol] 140 mmol/L 136 - 145 [facility] Work Phone: Urea nitrogen [Mass/Vol] 19 mg/dL 6 - 23 [facility] Work Phone: MRI Liver w/wo Contraston MR Liver WO and W contrast IV Normal [facility] Work Phone: No Panel Informationon 01-11 73 {mL/min/1.73m2} >60 [facility] Work Phone: Comment on above: CALCULATIONS OF LACEY MATED GFR ARE PERFORMED USING THE MDRD STUDY EQUATION FOR THE IDMS-TRACEABLE CREATININE METHODS. CLIN CHEM 2007;53:766-72 60 {mL/min/1.73m2} Abnormal >60 [facility] Work Phone: Prostate Specific Antigenon 01-11-2021 Prostate specific Ag [Mass/Vol] 0.29 ng/mL See Below [facility] Work Phone: Comment on above: Reference Range: 0.0 0 - 4.00The FDA requires that the method used for PSA assay be reported to the physician. Values obtained with different assay methods must not be used interchangeably. This test was performed at [facility] using the [employer] PSA method, which is a sandwich immunoassay using chemiluminescence for quantitation. The assay is approvedfor measurement of prostate-specific antigen (PSA) in serum and may be used in conjunction with a digital rectalexamination in men 50 years and older as an aid in detection of prostate cancer. 5-Syule-jzkeciqlb inhibitors (e.g. Proscar, Finasteride, Avodart, Dutasteride and Crystal) for the treatment of BPH have been shown to lower PSA levels by an average of 50% after 6 months of treatment. 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 Given the small size of this tumor, location, as well as low-grade, Dr. Knowles I discussed endoscopic resection as a good option for this patient rather than surgical resection which would require distal gastrectomy with proximal duodenectomy. I discussed this with the patient and the rationale for proceeding with a more minimally invasive approach. I have referred the patient to Dr. Cespedes for endoscopic submucosal resection and Dr. Knowles will continue with imaging follow-up in the future. Dictation software was used in the creation of this note and not corrected for typographical or grammatical errors Chief Complaint An interactive audio and video telecommunication system which permits real time communications between the patient (at the originating site) and provider (at the distant site) was utilized to provide this telehealth service. Verbal consent was requested and obtained from YUSEF CAR on this date, 01/10/2021 09:30 AM , for a telehealth visit. Duodenal neuroendocrine tumor History of Present [id number] man with duodenal well-differentiated neuroendocrine tumor. He underwent EGD on 11/28/2020 at the [facility] in [facility] for a longstanding history of gastroesophageal reflux disease, as well as right upper quadrant abdominal pain. He has undergone right upper quadrant ultrasound as well as HIDA scan which showed no gallbladder problems. EGD report showed a small polyp apparently in the bulb of the duodenum. The biopsy report from a duodenal polyp showing a small focus of well-differentiated neuroendocrine tumor with specimen in pieces measuring 2 to 4 mm. Colonoscopy showed tubular adenoma. Gastrin level as well as imaging studies were performed with the results below. This is a virtual visit with the patient and his . 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) Surgical History History of Appendectomy History of Bunionectomy History of Shoulder surgery Family History No pertinent family history No pertinent family history Social History No alcohol use Non-smoker (V49.89) (Z78.9) Allergies ciprofloxacin Recorded By: Neelima Brock; 01/08/2021 2:21:14 PM Lisinopril TABS Recorded By: Neelima Brock; 01/08/2021 2:21:14 PM Current Meds Medication NameInstruction Allopurinol 300 MG Oral Tablet amLODIPine Besylate 10 MG Oral Tablet Bisoprolol Fumarate 5 MG Oral Tablet Fluticasone Propionate CREA Furosemide 20 MG Oral Tablet Glimepiride 4 MG Oral Tablet Losartan Potassium 100 MG Oral Tablet Omeprazole 10 MG Oral Capsule Delayed Release Pioglitazone HCl - 30 MG Oral Tablet Rosuvastatin Calcium 10 MG Oral Tablet Results/Data Gastrin, [id number] 08:49AMNon Ambulatory, Provider Ordering Provider: NEFTALI KNOWLES [id number] Test NameResultFlagReference Gastrin, Serum21 pg/mL0-100 Performed By: [employer] [address] [place] [address] Historic Preservationist: Katharine Vergara MD CT Abdomen and Pelvis with IV [id number] 05[facility] Ordering Provider: NEFTALI KNOWLES [id number] Abdomen and Pelvis with Contrast(Report) FINAL REPORT Interpreted by: MARINO CARVER H, MD and SWATI GARCIA MD - RAD RESIDENT 12/26/20 21:29 Patient Name: YUSEF CAR STUDY: CT ABDOMEN AND PELVIS W IV CONTRAST; 12/25/2020 5:35 pm INDICATION: net restaging. 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 Images were obtained for staging purposes. COMPARISON: None. ACCESSION NUMBER(S): [id number] ORDERING CLINICIAN: NEFTALI KNOWLES TECHNIQUE: CT of the abdomen and pelvis was performed. Standard contiguous axial images were obtained at 3 mm slice thickness through the abdomen and pelvis. Coronal and sagittal reconstructions at 3 mm slice thickness were performed. 90 ml of contrast Omnipaque 350 were administered intravenously without immediate complication. FINDINGS: LOWER CHEST: The visualized lung base is unremarkable. The heart is normal in size without pericardial effusion. No pleural effusion is present. Visualized distal esophagus appears normal. ABDOMEN: LIVER: The liver is normal in size and demonstrates diffusely decreased attenuation suggesting steatosis. Single subcentimeter hypodensity within segment 4A which is too small to be characterize (series 2, image 20 of 215). Recommend correlation with PET-CT performed on 12/25/2020. BILE DUCTS: The intrahepatic and extrahepatic ducts are not dilated. GALLBLADDER: The gallbladder is n (more content not included)... 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 There is uptake in the prostate which is nonspecific. Digital rectal exam was unremarkable. Last PSA almost a year ago was normal. We will repeat his PSA to ensure there has not been some significant change. Assuming there is not, I do not think evaluation for a prostate malignancy is warranted. History of Present Illness 70-year-old gentleman presents to the office for evaluation for BPH and possible prostate cancer. Patient has a known history of BPH and has had prior urinary tract infections/prostatitis. He is currently stable in terms of urinary symptoms. AUA symptom score is 7. He does on occasion have some double voiding. Reports some intermittency at the end of his stream. Feels he empties completely. Denies hematuria or dysuria. Was recently diagnosed with a neuroendocrine tumor of the duodenum. As part of his evaluation, he underwent a CT/PET scan. This revealed uptake in the prostate and there was concern for malignancy. He has no family history of prostate cancer. PSA in May 2020 was 0.75. He has not had a recent digital rectal exam. SIVA Score: 17 Review of Systems A 12 system review was completed and is negative with the exception of those signs and symptoms noted in the history of present illness. Constitutional: no fever, no chills and not feeling poorly. Eyes: no eyesight problems. ENT: no hearing loss, no nosebleeds and no sore throat. Cardiovascular: no chest pain, no palpitations and no extremity edema. Respiratory: no shortness of breath, no wheezing, no cough and no shortness of breath during exertion. Gastrointestinal: no abdominal pain, no constipation, no heartburn, no diarrhea, no vomiting and no blood in stools. Genitourinary: no dysuria, no incontinence, normal micturition and no testicular pain. Musculoskeletal: no arthralgias and no gait abnormality. Integumentary: no skin lesions, no skin wound and no change in a mole. Neurological: no confusion, no dizziness, no fainting and no difficulty walking. Psychiatric: not suicidal, no anxiety and no depression. All other systems have been reviewed and are negative for complaint. 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) Surgical History Problems History of Appendectomy History of Bunionectomy History of Shoulder surgery Family History Mother No pertinent family history Father No pertinent family history Social History Problems No alcohol use Non-smoker (V49.89) (Z78.9) Allergies Medication ciprofloxacin Recorded By: Neelima Brock; 01/08/2021 2:21:14 PM Lisinopril TABS Recorded By: Neelima Brock; 01/08/2021 2:21:14 PM Current Meds Medication NameInstruction Allopurinol 300 MG Oral Tablet amLODIPine Besylate 10 MG Oral Tablet Bisoprolol Fumarate 5 MG Oral Tablet Fluticasone Propionate CREA Furosemide 20 MG Oral Tablet Glimepiride 4 MG Oral Tablet Losartan Potassium 100 MG Oral Tablet Omeprazole 10 MG Oral Capsule Delayed Release Pioglitazone HCl - 30 MG Oral Tablet Rosuvastatin Calcium 10 MG Oral Tablet Vitals Vital Signs Recorded: 08Jan2021 02:15PM Fgycpzrnofp61.5 F Heart Rate76 Bwekzddo252 Mxulxxykz23 Height5 ft 10 in Vpqfqr742 lb BMI Hzrvgnmhes73.87 kg/m2 BSA Calculated2.27 Tobacco Useb) No Fall Screeninga) No falls within the last year Physical Exam General: in NAD, appears stated age Head: normocephalic, atraumatic Neck: supple; trachea is midline Respiratory: normal effort, no use of accessory muscles Cardiovascular: no peripheral edema Abdomen: soft, nondistended, nontender, no rebound or guarding, no organomegaly, no CVA tenderness, no hernia Lymphatic: no lymphadenopathy noted Skin: normal turgor, no rashes Neurologic: grossly intact, oriented to person/place/time Psychiatric: mode and affect appropriate : normal phallus, normal meatus, scrotum normal, testicles normal bilaterally, epididymis normal bilaterally LURDES: normal tone, no hemorrhoids, prostate smooth/nontender/no nodules, mild enlarged Results/Data CT Abdomen and Pelvis with IV [id number] 05:35PMNon Ambulatory, Provider Ordering Provider: NEFTALI KNOWLES [id number] Abdomen and Pelvis with Contrast(Report) FINAL REPORT Interpreted by: MARINO CARVER H, MD and SWATI GARCIA MD - RAD RESIDENT 12/26/20 21:29 Patient Name: YUSEF CAR STUDY: CT ABDOMEN AND PELVIS W IV CONTRAST; 12/25/2020 5:35 pm INDICATION: net restaging. 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 Images were obtained for st (more content not included)... Normal [employer] Tobacco Screening.on 021 Fall risk assessment a) No falls within the last year [facility] Work Phone: Tobacco use status CPHS b) No M [facility] Work Phone: Complete Blood Count + Diffe rentialon 12-26-2020 Hematocrit (Bld) [Volume fraction] Canceled [facility] Work Phone: Hemoglobin (Bld) [Mass/Vol] Canceled [facility] Work [facility]: [phone] Platelets (Bld) [#/Vol] Canceled M [facility] Work Phone: 151 RBC (Bld) [#/Vol] Canceled [facility] Work Phone: 151 Complete Blood Count + Differential Canceled [facility] Work Phone: 151 Comment on above: Immature Granulocyte Count (IG) includes promyelocytes, myelocytes and metamyelocytes but does not include bands. Percent differential counts (%) should be interpreted in the context of the absolute cell counts (cells/L). CALCULATIONS OF LACEY MATED GFR ARE PERFORMED USING THE MDRD STUDY EQUATION FOR THE IDMS-TRACEABLE CREATININE METHODS. CLIN CHEM 2007;53:766-72 Gastrin, Serumon 12-26-2020 Gastrin [Mass/Vol] 21 pg/mL 0-100 MG-[facility] Work Phone: [phone] Comment on above: Performed By: MARISSA [id number] [id number] Director: Katharine Vergara MD Laboratory - Chemistry and C hemistry - challengeon 12-26-2020 Albumin BCP dye [Mass/Vol] Canceled -[facility] Work Phone: 151 ALP [Catalytic activity/Vol] Canceled [facility] Work Phone: 151 ALT With P-5'-P [Catalytic activity/Vol] Canceled MG-Surg [facility] Work Phone: [phone] Comment on above: Patients treated wit h Sulfasalazine may generate falsely decreased results for ALT. AST With P-5'-P [Catalytic activity/Vol] Canceled MG-Surg [facility] Work Phone: [phone] Bilirubin [Mass/Vol] Canceled [facility] Work [facility]: [phone] Calcium [Mass/Vol] Canceled MG-[facility] Work Phone: [phone] Chloride [Moles/Vol] Canceled -[facility] Work Phone: [phone] CO2 [Moles/Vol] Canceled -[facility] Work Phone: [phone] Creatinine [Mass/Vol] Canceled - [facility] Work Phone: [phone] Glucose [Mass/Vol] Canceled -[facility] Work Phone: [phone] Potassium [Moles/Vol] Canceled - [facility] Work Phone: [phone] Protein [Mass/Vol] Canceled -[facility] Work Phone: [phone] Sodium [Moles/Vol] Canceled -[facility] Work Phone: [phone] Urea nitrogen [Mass/Vol] Canceled [facility] Work Phone: [phone] Abdomen and Pelvis with I V Contraston 12-25-2020 CT Abdomen and Pelvis W contrast IV Normal [facility] Work Phone: [phone] Complete Blood Count + Diffe rentialon 12-25-2020 Basophils/100 WBC (Bld) 0.2 % 0.0 - 2.0 M [facility] Work Phone: [phone] Erythrocyte distribution width (RBC) [Ratio] 15.7 % above high threshold See Below [facility] Work Phone: [phone] Comment on above: Reference Range: 11. 5 - 14.5 Hematocrit (Bld) [Volume fraction] 40.2 % below low threshold See Below [facility] Work Phone: [phone] Comment on above: Reference Range: 41. 0 - 52.0 Hemoglobin (Bld) [Mass/Vol] 13.0 g/dL below low threshold See Below [facility] Work Phone: [phone] Comment on above: Reference Range: 13. 5 - 17.5 Lymphocytes/100 WBC (Bld) 14.4 % See Below [facility] Work Phone: [phone] Comment on above: Reference Range: 13. 0 - 44.0 MCHC (RBC) [Mass/Vol] 32.3 g/dL See Below [facility] Work Phone: [phone] Comment on above: Reference Range: 32. 0 - 36.0 MCV (RBC) [Entitic vol] 89 fL 80 - 100 M [facility] Work Phone: 151 Monocytes/100 WBC (Bld) 7.5 % 2.0 - 10.0 M [facility] Work Phone: 151 Neutrophils/100 WBC (Bld) 76.9 % See Below [facility] Work Phone: 151 Comment on above: Reference Range: 40. 0 - 80.0 Platelets (Bld) [#/Vol] 401 10*3/uL 150 - 450 [facility] Work Phone: 151 RBC (Bld) [#/Vol] 4.50 {x10E12/L} See Below [facility] Work Phone: [phone] Comment on above: Reference Range: 4.5 0 - 5.90 WBC (Bld) [#/Vol] 11.4 10*3/uL above high threshold 4.4 - 11.3 [facility] Work Phone: [phone] Complete Blood Count + Differential 0.02 {x10E9/L} See Below [facility] Work Phone: 151 Comment on above: Reference Range: 0.0 0 - 0.10 Complete Blood Count + Differential 0.08 {x10E9/L} See Below [facility] Work Phone: [phone] Comment on above: Reference Range: 0.0 0 - 0.40 Complete Blood Count + Differential 0.86 {x10E9/L} above high threshold See Below [facility] Work Phone: [phone] Comment on above: Reference Range: 0.0 5 - 0.80 Complete Blood Count + Differential 1.65 {x10E9/L} See Below [facility] Work Phone: [phone] Comment on above: Reference Range: 0.8 0 - 3.00 Complete Blood Count + Differential 8.78 {x10E9/L} above high threshold See Below [facility] Work Phone: [phone] Comment on above: Reference Range: 1.6 0 - 5.50 Complete Blood Count + Differential 0.7 % 0.0 - 6.0 [facility] Work Phone: [phone] Complete Blood Count + Differential 0.3 % 0.0 - 0.9 [facility] Work Phone: [phone] Comment on above: Immature Granulocyte Count (IG) includes promyelocytes, myelocytes and metamyelocytes but does not include bands. Percent differential counts (%) should be interpreted in the context of the absolute cell counts (cells/L). Gastrin, Serumon 12-25-2020 Gastrin [Mass/Vol] Canceled -[facility] Work Phone: [phone] Laboratory - Chemistry and C hemistry - challengeon 12-25-2020 Albumin BCP dye [Mass/Vol] 4.3 g/dL 3.4 - 5.0 [facility] Work Phone: [phone] ALP [Catalytic activity/Vol] 88 U/L 33 - 136 [facility] Work Phone: [phone] ALT With P-5'-P [Catalytic activity/Vol] 11 U/L 10 - 52 -Surg [facility] Work Phone: [phone] Comment on above: Patients treated wit h Sulfasalazine may generate falsely decreased results for ALT. Anion gap [Moles/Vol] 15 mmol/L 10 - 20 MG- [facility] Work Phone: [phone] AST With P-5'-P [Catalytic activity/Vol] 12 U/L 9 - 39 [facility] [phone] Bilirubin [Mass/Vol] 0.4 mg/dL 0.0 - 1.2 MG-S [facility] Work Phone: [phone] Calcium [Mass/Vol] 9.8 mg/dL 8.6 - 10.3 [facility] Work Phone: [phone] Chloride [Moles/Vol] 104 mmol/L 98 - 107 MG-S [facility] Work Phone: [phone] CO2 [Moles/Vol] 23 mmol/L 21 - 32 MG-Surger [facility] Work Phone: [phone] Creatinine [Mass/Vol] 1.15 mg/dL See Below [facility] Work Phone: [phone] Comment on above: Reference Range: 0.5 0 - 1.30 Glucose [Mass/Vol] 101 mg/dL above high threshold 74 - 99 [facility] Work Phone: [phone] Potassium [Moles/Vol] 4.3 mmol/L 3.5 - 5.3 [facility] Work Phone: [phone] Protein [Mass/Vol] 7.5 g/dL 6.4 - 8.2 [facility] Work Phone: [phone] Sodium [Moles/Vol] 138 mmol/L 136 - 145 [facility] Work Phone: [phone] Urea nitrogen [Mass/Vol] 30 mg/dL above h igh threshold 6 - 23 [facility] Work Phone: [phone] No Panel Informationon 12-25 >60 >60 [facility] Work Phone: Comment on above: CALCULATIONS OF LACEY MATED GFR ARE PERFORMED USING THE MDRD STUDY EQUATION FOR THE IDMS-TRACEABLE CREATININE METHODS. 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 He will be undergoing serum gastrin level testing as well as cross-sectional imaging. I will obtain his EGD report from [facility]. It is currently unclear to me where the tumor location is. We discussed that if this is in the periampullary region, he may require Whipple procedure. Otherwise he may require partial duodenectomy with regional lymphadenectomy. I will plan for a virtual visit in a couple of weeks to discuss the results and the surgical plan. Dictation software was used in the creation of this note and not corrected for typographical or grammatical errors Chief Complaint Duodenal well-differentiated neuroendocrine tumor History of Present [id number] man referred to me from Dr. Johansen for duodenal well-differentiated neuroendocrine tumor. He underwent EGD on 11/28/2020 at the [facility] in [facility] for a longstanding history of gastroesophageal reflux disease, as well as right upper quadrant abdominal pain. He has undergone right upper quadrant ultrasound as well as HIDA scan which showed no gallbladder problems. I do not have the endoscopy report currently, but I do have the biopsy report from a duodenal polyp showing a small focus of well-differentiated neuroendocrine tumor. It is unclear to me the exact location of this lesion. Colonoscopy showed tubular adenoma. The patient was seen today by Dr. Johansen who has ordered cross-sectional imaging and gastrin level Family history of breast cancer for additional work-up. Past medical history significant for hypertension, diabetes mitral valve prolapse Past surgical history significant for open appendectomy in 1959 as well as orthopedic surgery Medications include glimepiride 4 mg twice a day, pioglitazone 30 mg daily, bisoprolol 5 mg daily, losartan 100 mg daily, amlodipine 10 mg daily, rosuvastatin 10 mg daily, furosemide 20 mg daily, allopurinol 300 mg daily, fluticasone spray, omeprazole 40 mg daily Allergies include Cipro which causes TIA symptoms, lisinopril causes cough and joint pain, EES causes rectal bleeding and cramping Family history of breast cancer and gastric cancer quit smoking about 20yrs ago, occasional alcohol, no illicit drug use He is retired Review of Systems Constitutional: no fever, no chills, no recent weight gain and no recent weight loss. Eyes: no loss of vision, no discharge from the eyes and no itching of the eyes. ENT: no hearing loss, no neck pain and no hoarseness. Cardiovascular: no chest pain, no palpitations and no lower extremity edema. Respiratory: no dyspnea, no dyspnea during exertion and no cough. Breast: no nipple discharge, no breast mass and no pain in breast. Gastrointestinal: abdominal pain, constipation, heartburn, bloody stools, but no vomiting, bowel movement frequency normal. Genitourinary: increased urinary frequency, but no dysuria, no prostate disorders and no testicular pain. Musculoskeletal: joint stiffness/swelling, limb pain/swelling and back pain, but no arthralgias, no myalgias and no hernia. Integumentary: no rashes and no skin lesions. Neurological: numbness and tingling, but no headache, no dizziness and no limb weakness. Psychiatric: no anxiety, no depression and no emotional problems. Endocrine: no heat or cold intolerance and no increased thirst. All other systems have been reviewed and are negative for complaint. Hematologic/Lymphatic: no swollen glands, no tendency for easy bleeding and no tendency for easy bruising. Vitals Vital signs are in the medical oncology is from today Physical Exam General: Appears well and in no acute distress Psychiatric: Normal mood and affect, alert and oriented Head and neck: No scleral icterus Heart: Pulse exam with regular rate and rhythm Lungs: Normal work of breathing without respiratory distress Abdomen: Soft, obese, nontender. No palpable masses. No hepatosplenomegaly. No hernias. Right lower quadrant scar Back: No costovertebral angle tenderness Extremities: Warm and well-perfused, no edema Neurologic: No focal neurologic deficits Skin: Warm and dry without obvious rashes Signatures Electronically signed by : Zach Gould MD; Dec 19 2020 2:29PM EST (Author) Normal [facility] H PYLORI TISSUEon 11-28-2020 H PYL TISSUE, UREASE Negative Normal NEGATIVE [facility] Comment on above: Performed By: #### P OCGLUC #### [facility] [address] [place] [id number] Freda Wayne POINT OF CARE GLUCOSEon 11-13 Glucose [Mass/Vol] 129 mg/dL Critically high 74-106 T he [facility] Comment on above: Performed By: #### P OCGLUC #### [facility] [address] [place], [place] [address] José Luis Beard Covid-19 PCR (CVDTB)on 11-13 SARS-CoV-2 (COVID-19) RNA SHRUTI+probe Ql (Unsp spec) Not detected Normal NOT DETECTED [facility] Comment on above: Result Comment: This test is not yet approved or cleared by the [place] FDA. When there are no FDA-approved or cleared tests available, and other criteria are met, FDA can make tests available under an emergency access mechanism called an Emergency Use Authorization (EUA). The EUA for this test is supported by the [place] of Health and Human Service's (HHS's) declaration that circumstances exist to justify the emergency use of in vitro diagnostics for the detection and/or diagnosis of the virus that causes COVID-19. This EUA will remain in effect (meaning this test can be used) for the duration of the COVID-19 declaration justifying emergency of IVDs, unless it is terminated or revoked by FDA (after which the test may no longer be used). When diagnostic testing is negative, the possibility of a false negative should be considered in the context of a patient's recent exposures and the presence of clinical signs and symptoms consistent with SARS-CoV-2. Performed By: #### C BCMAN #### [facility] [address] [place] [id number] Freda Wayne NM HEPATOBILIARY SCAN W EFon 06-18-2020 NM HEPATOBILIARY SCAN W EF EXAMINATION: NM HEPATOBILIARY SCAN W EF HISTORY: Right upper quadrant pain COMPARISON: No relevant comparison available. TECHNIQUE: Radionuclide hepatobiliary imaging was performed after intravenous injection of Tc-99m 4.9 mCi mebrofenin with sequential acquisitions every 1 minute for one hour. Hepatobiliary imaging with gallbladder ejection fraction analysis was then performed with sequential imaging every 1 minute for 60 minutes simultaneously during infusion of 2.3 mcg Sincalide over 60 minutes. FINDINGS: LIVER: Normal, prompt and uniform radiotracer uptake and clearing. BILIARY DUCTS: Normal radioisotopic biliary excretion. GALLBLADDER: Normal with no evidence of cystic duct obstruction. INTESTINE: Normal with no evidence of common biliary ductal obstruction. EJECTION FRACTION: 98 % within 60 minutes. (Normal EF > 38%). OTHER: Negative. IMPRESSION: Normal hepatobiliary scan and pharmacologic gallbladder ejection fraction Electronically authenticated by: MARCELLO LEE Date: 2020-06-18 10:24 Normal [facility] [place] Vital Signs Date Time Vital Sign Value Performing Clinician Facility 06-10-2023 09:30-0500 Diastolic blood pressure 63 mm[Hg] Sam Padilla MD Work Phone: [facility] 06-10-2023 09:30-0500 Heart rate 62 /min Sam Padilla MD Work Phone: [facility] 06-10-2023 09:30-0500 Respiratory rate 18 /min Sam Padilla MD Work Phone: [facility] 06-10-2023 09:30-0500 SaO2% (BldA) [Mass fraction] 96 % Sam Padilla MD Work Phone: [facility] 06-10-2023 09:30-0500 Systolic blood pressure 138 mm[Hg] Sam Padilla MD Work Phone: [facility] 06-10-2023 09:10-0500 Body temperature 97.9 [degF] Sam Padilla MD Work Phone: [facility] 06-10-2023 07:28-0500 Body height 177.8 cm Sam Padilla MD Work Phone: [facility] 06-10-2023 07:28-0500 Body mass index (BMI) [Ratio] 34.29 kg/m2 Sam Padilla MD Work Phone: [facility] 06-10-2023 07:28-0500 Body weight 108.41 kg Sam Padilla MD Work Phone: [facility] 01-08-2021 14:15-0400 Body height 177.8 cm Vanessa Steele Work Phone: [facility] Work Phone: 01-08-2021 14:15-0400 Body mass index (BMI) [Ratio] 34.87 kg/m2 Vanessa Steele Work Phone: [facility] Work Phone: 01-08-2021 14:15-0400 Body surface area Derived from formula 2.27 m2 Vanessa Steele Work Phone: [facility] Work Phone: 01-08-2021 14:15-0400 Body temperature 97.5 [degF] Vanessa Steele Work Phone: [facility] Work Phone: 01-08-2021 14:15-0400 Body weight 110.22 kg Vanessa Steele Work Phone: [facility] Work Phone: 01-08-2021 14:15-0400 Diastolic blood pressure 81 mm[Hg] Vanessa Steele Work Phone: [facility] Work Phone: 01-08-2021 14:15-0400 Heart rate 76 /min Vanessa Steele Work Phone: [facility] Work Phone: 01-08-2021 14:15-0400 Systolic blood pressure 134 mm[Hg] Vanessa Steele Work Phone: [facility] Work Phone: Encounters Encounter Date Encounter Type Care Provider Facility Start: 06-29-2023 End: 06-29-2023 ambulatory RENEABOOKER BLACKMANE Not Available Start: 06-10-2023 End: 06-11-2023 ambulatory [facility] Start: 06-10-2023 End: 06-10-2023 Subsequent hospital visit by physician Sam Padilla MD Work Phone: [facility] Comment on above: Primary malignant ne uroendocrine neoplasm of duodenum (CMS/HCC) (Primary Dx) Start: 05-26-2023 End: 05-27-2023 ambulatory JAZLYN Gary [facility] Start: 05-26-2023 End: 05-26-2023 Subsequent hospital visit by physician [address]le [address] 2 [facility] Comment on above: Primary malignant ne uroendocrine neoplasm of duodenum (CMS/HCC) Start: 05-22-2023 End: 05-23-2023 ambulatory [facility] Start: 05-19-2023 End: 05-20-2023 ambulatory NEFTALI STARR Not Available Start: 05-12-[address] Neftali Knowles Facility:[facility] Start: 05-09-2022 Chart Update Vanessa butts Work Phone: [facility] Work Phone: Start: 04-29-2022 End: 04-29-2022 ambulatory Jeremiah Dinary Facility:[id number] Start: 03-01-2022 AUDIT Vanessa butts Work Phone: [facility] Work Phone: Start: 12-05-2021 ambulatory Ms. Lulu Calle Facilit y:[phone] Start: 12-03-2021 AUDIT Vanessa butts Work Phone: [facility] Work Phone: Start: 10-31-2021 ambulatory Ms. Lulu Calle Facilit y:[phone] Start: 08-26-[address] Neftali Knowles Facility:[facility] Start: 06-04-2021 End: 06-06-2021 Evaluation and management of inpatient DR VANESSA STEELE Facility:[facility] Start: 05-20-[address] Neftali Knowles Facility:[facility] Start: 05-16-2021 Result Review Vanessa Penny ler Work Phone: WH-Nasxfvhkglihtcvj[facility]G [place] [facility] [address] DO Work Phone: Start: 05-01-2021 Chart Update Vanessa Penny ler Work Phone: EY-Jrmzqlxswutuqxxh-P [place] [facility] [address] DO Work Phone: Start: 04-26-2021 AUDIT Vanessa Penny ler Work Phone: [facility] Work Phone: Start: 02-05-2021 Telephone encounter Vanessa Steele Work Phone: FV-Pxbjmsyqjgisuozf-W [place] [facility] [address] DO Work Phone: Start: 01-23-2021 AUDIT Vanessa Penny ler Work Phone: HK-Zfxmgkrmnvcuevzv-L [place] [facility] [address] DO Work Phone: Start: 01-18-2021 AUDIT Vanessa Penny ler Work Phone: [facility] Work Phone: Start: 01-10-2021 Office outpatient vi sit 15 minutes Vanessa Steele Work Phone: [facility] Work Phone: Start: 12-19-2020 Office outpatient ne w 60 minutes Vanessa Steele Work Phone: [facility] Work Phone: Start: 11-29-2020 Encounter for preprocedural laboratory examination DR XAVI THOMPSON [facility] [place] Start: 11-28-2020 End: 11-28-2020 ambulatory MIQUEL ROSS Facility:[facility] Start: 11-26-2020 End: 11-27-[address] XAVI THOMPSON Facility:[facility] Start: 11-26-2020 End: 11-27-2020 Encounter for preprocedural laboratory examination DR XAVI THOMPSON Facility:[facility] Start: 06-18-2020 End: 06-19-[address] VANESSA STEELE Facility:[facility] Start: 10-08-2018 End: 10-09-2018 Patient encounter procedure DEFAULT PHYSICIAN Facility:[facility] Procedures Date Procedure Procedure Detail Performing Clinician Start: 06-10-2023 PULSE OXIMETRY, CONTINUOUS JAZLYN MCARTHUR Start: 06-10-2023 Esophagogastroduodenoscopy JAZLYN MCARTHUR Start: 06-10-2023 SURGICAL PATHOLOGY EXAM JAZLYN MCARTHUR Start: 06-10-2023 PULSE OXIMETRY, SPOT JAZLYN MCARTHUR Start: 06-10-2023 PLACE IN OUTPATIENT/HOSPITAL AMBULATORY SURGERY JAZLYN MCARTHUR Start: 06-10-2023 PULSE OXIMETRY, CONTINUOUS Sam caruso MD Work Phone: Start: 06-10-2023 Egd transoral biopsy single/multiple Jazlyn Mcarthur [employer] OPERATOR Work Phone: Start: 06-10-2023 Glucose [Mass/volume] in Serum or Plasma JAZLYN MCARTHUR Start: 06-10-2023 PULSE OXIMETRY, SPOT Sam Padilla MD Work Phone: Start: 06-10-2023 Glucose quantitative blood xcpt reagent strip Sam Padilla MD Work Phone: Start: 05-26-2023 CT CHEST ABDOMEN PELVIS W IV CONTRAST JAZLYN MCARTHUR Start: 05-26-2023 Ct thorax w/contrast material Jazlyn martinez [employer] MACHINE OPERATOR Work Phone: Start: 05-22-2023 CBC W Auto Differential panel - Blood Start: 05-22-2023 Comprehensive metabolic 2000 panel - Serum or Plasma Start: 03-06-2023 Lipid 1996 panel - Serum or Plasma Stj 2 Start: 12-05-2021 Medical genetics counseling each 30 minutes Vanessa Steele Work Phone: Start: 10-31-2021 Medical genetics counseling each 30 minutes Vanessa Steele Work Phone: Start: 06-04-2021 Resection of Gallbladder, Percutaneous Endoscopic Approach DR VANESSA STEELE Start: 11-28-2020 Colonoscopy Sam Padilla MD Work Phone: Appendectomy Vanessa Burciaga er Work Phone: Excision of bunion Vanessa Steele Work Phone: Repair of shoulder Vanessa Steele Work Phone: Plan of Treatment Date Care Activity Detail Author Start: 11-28-2030 Screening for malign ant neoplasm of colon [facility] Start: 10-27-2028 DTaP/Tdap/Td Vaccine s (4 - Td or Tdap) DTaP/Tdap/Td Vaccines (4 - Td or Tdap) [facility] Start: 03-06-2028 Lipid panel Lipid Panel [facility] Start: 06-10-2024 Diabetes mellitus screening Diabetes Screening [facility] Start: 06-23-2023 COVID-19 Vaccine (4 - Pfizer series) COVID-19 Vaccine (4 - Pfizer series) [facility] Start: 06-18-2023 End: 06-18-2023 Patient encounter procedure 06/18/2023 12:40 PM EST Office Visit [facility] [address] [facility] 2[address] [place] [address] [place] [address] [place] [address] [facility] Start: 06-10-2023 End: 06-10-2023 Patient encounter procedure 06/10/2023 8:30 AM EST Appointment [facility] [address] [place] [address] [place] [address] [place] [address] [facility] Start: 04-29-2023 Diabetes mellitus screening Diabetes Screening [facility] Start: 04-29-2022 EGDANS, Provider: Jeremiah Magaña, Status: Pen, Time: 7:30 AM EGDANS, Provider: Jeremiah Magaña, Status: Pen, Time: 7:30 AM [facility]Kpfavopr-Ljrrajjk [address] Work Phone: Start: 11-13-2021 NPV, Provider: Deb Zavala, Status: Pen, Time: 11:20 AM NPV, Provider: Deb Zavala, Status: Pen, Time: 11:20 AM VL-Ssejsram-Ahjitqvn [address] Work Phone: Start: 05-01-2021 EGDANS, Provider: Irwin Cespedes, Status: Pen, Time: 8:30 AM EGDANS, Provider: Irwin Cespedes, Status: Pen, Time: 8:30 AM JK-Fugvmqrilmtadbzy-D [place] [facility] [address] DO Work Phone: Start: 01-23-2021 EUSANS, Provider: Irwin Cespedes, Status: Pen, Time: 10:30 AM EUSANS, Provider: Irwin Cespedes, Status: Pen, Time: 10:30 AM [facility] Work Phone: Start: 07-19-2016 Zoster Vaccines (2 o f 3) Zoster Vaccines (2 of 3) [facility] Start: 2014 Abdominal aortic aneurysm screening Abdominal Aortic Aneurysm (AAA) Screening [facility] Start: 2009 Hepatitis B Vaccines (1 of 3 - Risk 3-dose series) Hepatitis B Vaccines (1 of 3 - Risk 3-dose series) [facility] Start: 1968 Hepatitis A Vaccines (1 of 2 - Risk 2-dose series) Hepatitis A Vaccines (1 of 2 - Risk 2-dose series) [facility] Start: 1967 Hepatitis C screening Hepatitis C Sc reening [facility] Start: 1949 Medicare Annual Wellness Visit Medicare Annual Wellness Visit (AWV) [facility] Start: 1950 Screening for malign ant neoplasm of colon [facility] End: 05-26-2023 CT Chest and Abdomen and Pelvis W contrast IV [facility] Service Area Work Phone: Comment on above: Once for 1 Occurrenc es starting 05/26/2023 until 05/26/2023 Surgical pathology study [facility] Service Area Work Phone: Comment on above: Release Upon Orderin g for 1 Occurrences starting 06/10/2023 Release Upon Orderin g for 1 Occurrences starting 06/10/2023, 1 completed Immunizations Immunization Date Immunization Notes Care Provider Fa cility 10-15-2021 Comirnaty 30 MCG/0.3 ML Intramuscular Suspension Vanessa Steele Work Phone: PC[facility]Blmbsqtu[facility]Fjvrgt [facility] [address] Work Phone: 03-25-2021 Pfizer-BioNTech COVI D-19 Vacc 30 MCG/0.3ML Intramuscular Suspension Vanessa Steele Work Phone: SL-Vnyppizi-Bstfgj [facility] [address] Work Phone: 03-01-2021 Fluzone High-Dose Quadrivalent 0.7 ML Intramuscular Suspension Prefilled Syringe Vanessa tSeele Work Phone: GF-Gzedowoy-Srtbbd de [address] Work Phone: 08-07-2020 Pfizer-BioNTech COVI D-19 Vacc 30 MCG/0.3ML Intramuscular Suspension Vanessa Steele Work Phone: [facility] Work Phone: 07-17-2020 Pfizer-BioNTech COVI D-19 Vacc 30 MCG/0.3ML Intramuscular Suspension Vanessa Steele Work Phone: [facility] Work Phone: 02-24-2020 Fluzone High-Dose Quadrivalent 0.7 ML Intramuscular Suspension Prefilled Syringe Vanessa Steele Work Phone: [facility] Work Phone: 03-09-2019 influenza, high dose seasonal, preservative-free Vanessa Steele Work Phone: [facility] Work Phone: 11-22-2018 pneumococcal conjuga te vaccine, 13 valent Vanessa Steele Work Phone: [facility] Work Phone: 10-27-2018 tetanus toxoid, redu norris diphtheria toxoid, and acellular pertussis vaccine, adsorbed Vanessa Steele Work Phone: [facility] Work Phone: 05-21-2018 pneumococcal conjuga te vaccine, 13 valent Vanessa Steele Work Phone: [facility] Work Phone: 04-09-2018 influenza, high dose seasonal, preservative-free Vanessa F Mikana Work Phone: [facility] Work Phone: 05-18-2017 influenza, high dose seasonal, preservative-free Vanessa F Mikana Work Phone: [facility] Work Phone: 05-24-2016 zoster vaccine, live Ponce n Yissel PennyMikana Work Phone: [facility] Work Phone: 05-15-2016 zoster vaccine, live Jeanienatha n F Mikana Work Phone: [facility] Work Phone: 03-13-2016 influenza, seasonal, injectable, preservative free Vanessa F Cedric Work Phone: [facility] Work Phone: 03-28-2015 influenza, seasonal, injectable, preservative free Vanessa Steele Work Phone: [facility] Work Phone: 03-14-2011 tetanus toxoid, redu norris diphtheria toxoid, and acellular pertussis vaccine, adsorbed Vanessa Steele Work Phone: [facility] Work Phone: 08-06-2009 novel influenza-H1N1 -09, preservative-free, injectable Vanessa Steele Work Phone: [facility] Work Phone: 05-12-2006 pneumococcal polysaccharide vaccine, 23 valent Vanessa Steele Work Phone: [facility] Work Phone: Payers Date Payer Category Payer Medicare MEDICARE MEDICAR E PART A AND B [id number] 2016-Present [address] [place] [address] [id number] 2016 Unknown 1959 Medicare [id number] 1959 Private Health Insurance [id number] 1949 Unknown [id number] .647 1949 Unknown [id number] [id number] .593 1949 Unknown [id number] [id number] .593 1949 Unknown [id number] 2.16.840.1.449343.3.579.2 .593 1949 Unknown [id number] 2.16.840.1.239585.3.579.2 .593 1949 Unknown [id number] 2.16.840.1.958415.3.579.2 .356 1949 Unknown [id number] 2.16.840.1.218369.3.579.2 .356 1949 Unknown [id number] 2.16.840.1.024581.3.579.2 .356 1949 Unknown [id number] 2.16.840.1.289466.3.579.2 .356 1949 Unknown [id number] 2.16.840.1.107344.3.579.2 .356 1949 Unknown [id number] 2.16.840.1.144250.3.579.2 .1069 1949 Unknown [id number] 2.16.840.1.616511.3.579.2 .1069 1949 Unknown [id number] 2.16.840.1.455036.3.579.2 .1245 1949 Unknown [id number] 2.16.840.1.990175.3.579.2 .1259 1949 Unknown [id number] 2.16.840.1.558952.3.579.2 .1259 1949 Unknown [id number] [id number] .1243 1949 Unknown [id number] [id number] .1243 Social History Date Type Detail Facility Start: 06-10-2023 Non-smoker Non-smoker -[facility] Work Phone: Tobacco smoking status MOIS Tobacco smoking consumption unknown [facility] Work Phone: Start: 1950 Sex Assigned At Not on file [facility] Work Phone: Start: 06-10-2023 Gender identity Not on file [facility] Work Phone: Start: 05-12-2023 End: 06-10-2023 Exposure to SARS-CoV-2 (event) Not sure [facility] Start: 06-10-2023 Tobacco smoking status NHIS Ex-smoker [facility] Work Phone: End: 06-15-1983 History of tobacco use Current smoker [facility] Work Phone: End: 06-15-1983 History of tobacco use Cigarette Smoker [facility] Work Phone: Start: 06-10-2023 Tobacco use and exposure Smokeless tobacco non-user [facility] Work Phone: Start: 06-10-2023 Alcohol intake Current drinke r of alcohol (finding) [facility] Work Phone: Start: 06-10-2023 Alcohol Comment Social [facility][1] Work Phone: Medical Equipment Procedure Code Equipment Code Equipment Original Text Equipment Identifier Dates Generic Supply 0 8 Case [id number] Start: 01-23-2021 Comment on above: Description: Convert ed from [facility]. Please see archived information for full log information. Clinical Notes 11-28-2020 to 06-10-2023 Discharge InstructionsPre-Sedation Documentation - Sam Padilla MD - 06/10/2023 8:30 AM ESTPre-Sedation Documentation - Sam Padilla MD - 06/10/2023 8:30 AM EST Note Date & Type Note Facility 06-10-2023 Hospital Discharge instructions Sam Padilla MD - 06/10/2023 9:18 AM EST Patient Instructions after an endoscopy or colonoscopy The anesthetics, sedatives or narcotics which were given to you today will be acting in your body for the next 24 hours, so you might feel a little sleepy or groggy. This feeling should slowly wear off. Carefully read and follow the instructions. You received sedation today: - Do not drive or operate any machinery or power tools of any kind. - No alcoholic beverages today, not even beer or wine. - Do not make any important decisions or sign any legal documents. - No over the counter medications that contain alcohol or that may cause drowsiness. - Do not make any important decisions or sign any legal documents. While it is common to experience mild to moderate abdominal distention, gas, or belching after your procedure, if any of these symptoms occur following discharge from the GI Lab or within one week of having your procedure, call the [facility] to be advised whether a visit to your nearest Urgent Care or Emergency Department is indicated. Take this paper with you if you go. - If you develop an allergic reaction to the medications that were given during your procedure such as difficulty breathing, rash, hives, severe nausea, vomiting or lightheadedness.- If you experience chest pain, shortness of breath, severe abdominal pain, fevers and chills. -If you develop signs and symptoms of bleeding such as blood in your spit, if your stools turn black, tarry, or bloody - If you have not urinated within 8 hours following your procedure.- If your IV site becomes painful, red, inflamed, or looks infected. documented in this encounter [facility] Work Phone: 06-10-2023 Miscellaneous Notes Patient: Yusef Car Pre-sedation Evaluation: Sedation necessary for: Immobility and Analgesia Requesting service: GI History of Present Illness: H/o duodenal NET Past Medical History: Diagnosis Date Diabetes mellitus ([facility]) Hyperlipidemia Hypertension Principle problems: Patient Active Problem List Diagnosis Date Noted Primary malignant neuroendocrine neoplasm of duodenum ([facility]/HCC) 04/28/2023 Allergies: Allergies Allergen Reactions Ciprofloxacin Other TIA Erythromycin GI bleeding Lisinopril 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 amLODIPine (Norvasc) 10 mg tablet Take 1 tablet (10 mg) by mouth once daily. bisoprolol (Zebeta) 5 mg tablet Take 1 tablet (5 mg) by mouth once daily. furosemide (Lasix) 20 mg tablet Take 1 tablet (20 mg) by mouth once daily. glimepiride (Amaryl) 4 mg tablet Take 1 tablet (4 mg) by mouth 2 times a day. losartan (Cozaar) 100 mg tablet Take 1 tablet (100 mg) by mouth once daily. omeprazole (PriLOSEC) [address] capsule Take 1 capsule (40 mg) by mouth 2 times a day. pioglitazone (Actos) 30 mg tablet Take 1 tablet (30 mg) by mouth once daily. rosuvastatin (Crestor) 10 mg tablet Take 1 tablet (10 mg) by mouth once daily. fluticasone propionate (ArmonAir Digihaler) 55 mcg/actuation aero powdr breath act w/sensor Inhale 55 % once daily. No current facility-administered medications for this encounter. Past Surgical History: has a past surgical history that includes Other surgical history (01/08/2021); Other surgical history (01/08/2021); Other surgical history (01/08/2021); Appendectomy; Cholecystectomy; and Shoulder surgery (Left). Recent sedation/surgery (24 hours) No Review of Systems: Please check all that apply: No significant medical history NPO guidelines met: Yes Physical Exam Airway Mallampati: III Cardiovascular Rhythm: regular Rate: normal Dental Pulmonary - normal exam Plan ASA 3 Deep (This is my H and P ) documented in this encounter [facility] Work Phone: 06-10-2023 Note Formatting of this n ote is different from the original. 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 amLODIPine (Norvasc) 10 mg tablet Take 1 tablet (10 mg) by mouth once daily. bisoprolol (Zebeta) 5 mg tablet Take 1 tablet (5 mg) by mouth once daily. furosemide (Lasix) 20 mg tablet Take 1 tablet (20 mg) by mouth once daily. glimepiride (Amaryl) 4 mg tablet Take 1 tablet (4 mg) by mouth 2 times a day. losartan (Cozaar) 100 mg tablet Take 1 tablet (100 mg) by mouth once daily. omeprazole (PriLOSEC) [address] capsule Take 1 capsule (40 mg) by mouth 2 times a day. pioglitazone (Actos) 30 mg tablet Take 1 tablet (30 mg) by mouth once daily. rosuvastatin (Crestor) 10 mg tablet Take 1 tablet (10 mg) by mouth once daily. fluticasone propionate (ArmonAir Digihaler) 55 mcg/actuation aero powdr breath act w/sensor Inhale 55 % once daily. No current facility-administered medications for this encounter. Past Surgical History: has a past surgical history that includes Other surgical history (01/08/2021); Other surgical history (01/08/2021); Other surgical history (01/08/2021); Appendectomy; Cholecystectomy; and Shoulder surgery (Left). Recent sedation/surgery (24 hours) No Review of Systems: Please check all that apply: No significant medical history NPO guidelines met: Yes Physical Exam Airway Mallampati: III Cardiovascular Rhythm: regular Rate: normal Dental Pulmonary - normal exam Plan ASA 3 Deep (This is my H and P ) [facility] Work Phone: 06-10-2023 Note Formatting of this n ote is different from the original. 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 amLODIPine (Norvasc) 10 mg tablet Take 1 tablet (10 mg) by mouth once daily. bisoprolol (Zebeta) 5 mg tablet Take 1 tablet (5 mg) by mouth once daily. furosemide (Lasix) 20 mg tablet Take 1 tablet (20 mg) by mouth once daily. glimepiride (Amaryl) 4 mg tablet Take 1 tablet (4 mg) by mouth 2 times a day. losartan (Cozaar) 100 mg tablet Take 1 tablet (100 mg) by mouth once daily. omeprazole (PriLOSEC) [address] capsule Take 1 capsule (40 mg) by mouth 2 times a day. pioglitazone (Actos) 30 mg tablet Take 1 tablet (30 mg) by mouth once daily. rosuvastatin (Crestor) 10 mg tablet Take 1 tablet (10 mg) by mouth once daily. fluticasone propionate (ArmonAir Digihaler) 55 mcg/actuation aero powdr breath act w/sensor Inhale 55 % once daily. No current facility-administered medications for this encounter. Past Surgical History: has a past surgical history that includes Other surgical history (01/08/2021); Other surgical history (01/08/2021); Other surgical history (01/08/2021); Appendectomy; Cholecystectomy; and Shoulder surgery (Left). Recent sedation/surgery (24 hours) No Review of Systems: Please check all that apply: No significant medical history NPO guidelines met: Yes Physical Exam Airway Mallampati: III Cardiovascular Rhythm: regular Rate: normal Dental Pulmonary - normal exam Plan ASA 3 Deep (This is my H and P ) [facility] Work Phone: 01-10-2021 Chief complaint Narrative - Reported An interactive audio and video telecommunication system which permits real time communications between the patient (at the originating site) and provider (at the distant site) was utilized to provide this telehealth service.Verbal consent was requested and obtained from YUSEF CAR on this date, 01/10/2021 09:30 AM , for a telehealth visit.Duodenal neuroendocrine tumor [facility] Work Phone: 11-28-2020 History of Present illness Narrative 70-year-old man referred to me from Dr. Johansen for duodenal well-differentiated neuroendocrine tumor. He underwent EGD on 11/28/2020 at the [facility] in [facility] for a longstanding history of gastroesophageal reflux disease, as well as right upper quadrant abdominal pain. He has undergone right upper quadrant ultrasound as well as HIDA scan which showed no gallbladder problems. I do not have the endoscopy report currently, but I do have the biopsy report from a duodenal polyp showing a small focus of well-differentiated neuroendocrine tumor. It is unclear to me the exact location of this lesion. Colonoscopy showed tubular adenoma. The patient was seen today by Dr. Johansen who has ordered cross-sectional imaging and gastrin levelFamily history of breast cancer for additional work-up.Past medical history significant for hypertension, diabetes mitral valve prolapsePast surgical history significant for open appendectomy in 1959 as well as orthopedic surgeryMedications include glimepiride 4 mg twice a day, pioglitazone 30 mg daily, bisoprolol 5 mg daily, losartan 100 mg daily, amlodipine 10 mg daily, rosuvastatin 10 mg daily, furosemide 20 mg daily, allopurinol 300 mg daily, fluticasone spray, omeprazole 40 mg dailyAllergies include Cipro which causes TIA symptoms, lisinopril causes cough and joint pain, EES causes rectal bleeding and crampingFamily history of breast cancer and gastric cancerquit smoking about 20yrs ago, occasional alcohol, no illicit drug useHe is 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 Work Phone: 11-28-2020 History of Present illness Narrative 70-year-old man with duodenal well-differentiated neuroendocrine tumor. He underwent EGD on 11/28/2020 at the [facility] in [facility] for a longstanding history of gastroesophageal reflux disease, as well as right upper quadrant abdominal pain. He has undergone right upper quadrant ultrasound as well as HIDA scan which showed no gallbladder problems. EGD report showed a small polyp apparently in the bulb of the duodenum. The biopsy report from a duodenal polyp showing a small focus of well-differentiated neuroendocrine tumor with specimen in pieces measuring 2 to 4 mm. Colonoscopy showed tubular adenoma. Gastrin level as well as imaging studies were performed with the results below. This is a virtual visit with the patient and his . [facility]kvps[facility]ker[facility]Wal[facility] Work Phone: Evaluation note Diagnosis Primary malignant neuroendocrine neoplasm of duodenum (CMS/HCC) documented in this encounter [facility] Work Phone: Evaluation note* Diagnosis Primary malignant neuroendocrine neoplasm of duodenum (CMS/HCC) documented in this encounter [facility] Work Phone: Evaluation note* Diagnosis Primary malignant neuroendocrine neoplasm of duodenum (CMS/HCC)- Primary documented in this encounter [facility] Work Phone: History of Present illness Narrative* HISTORY OF PRESENT ILLNESS: * Mr. CAR is a 71 year old male with a personal history of duodenal neuroendocrine cancer. He wasreferred to the [facility] at [facility] by his provider, Ania Foster CNP. Mr. CAR is interested in genetic testing to clarify his personal risks for cancer, as well asthe risks to his family members. * CANCER MEDICAL HISTORY: * PERSONAL HISTORY OF CANCER? Yes * Type: Duodenal neuroendocrine * Age at diagnosis: 71 * Summary: Mr. Car was diagnosed in 07/05 with a duodenal polyp after undergoing an EGD, colonoscopy, and abdominal US d/t worsening acid reflux. His biopsy of the polyp demonstrated a well-differentiated neuroendocrine tumor which secreted pancreatic polypeptides, gastrin, and serotonin. Restaging imaging excluded metastatic disease. No treatment was done. * HISTORY OF OTHER CANCERS? None * FAMILY HISTORY: * A 4-generation pedigree was obtained and was significant for the following: * Sister (living, 75) with breast cancer at 68 (triple positive) and thyroid cancer at 69 (believed related to radiation treatments) * Brother (, 78) with pancreatic cancer at 78 * Niece (of his brother with pancreatic cancer, she is living at 50) who had breast cancer at 46 * Mother (, 85) who was found to have a thymoma at 85 * Maternal grandmother (, 60) with stomach cancer at 60 * Father (, 79) who had melanoma of the ear and neck (was a martinez/rolling chair pusher) * Paternal grandmother (, 60) who had stomach cancer at 59 * He reports multiple aunts, uncles, and cousins on both sides (5-6 aunts/uncles per side) but has noinformation regarding their health * Mr. CAR is of [place] and [place] descent. There is no known Ashkenazi Mandaeism ancestry. Consanguinity was denied. No genetic testing has been done in the family before. [employer] Work Phone: History of Present illness NarrativePlease see previous genetics note.[employer] Work Phone: Summary Purpose Family History No Family History Records FoundUnknown Family Member Name Dates Details No pertinent family history: Mother, Father(V49.89, Z78.9) Status:Active Unknown Family Member Name Dates Details No pertinent family history: Mother, Father(V49.89, Z78.9) Status:Active Unknown Family Member Name Dates Details No pertinent family history: Mother, Father(V49.89, Z78.9) Status:Active Unknown Family Member Name Dates Details No pertinent family history: Mother, Father(V49.89, Z78.9) Status:Active Unknown Family Member Name Dates Details No pertinent family history: Mother, Father(V49.89, Z78.9) Status:Active Unknown Family Member Name Dates Details No pertinent family history: Mother, Father(V49.89, Z78.9) Status:Active Unknown Family Member Name Dates Details No pertinent family history: Mother, Father(V49.89, Z78.9) Status:Active Unknown Family Member Name Dates Details No pertinent family history: Mother, Father(V49.89, Z78.9) Status:Active Unknown Family Member Name Dates Details No pertinent family history: Mother, Father(V49.89, Z78.9) Status:Active Unknown Family Member Name Dates Details No pertinent family history: Mother, Father(V49.89, Z78.9) Status:Active Unknown Family Member Name Dates Details No pertinent family history: Mother, Father(V49.89, Z78.9) Status:Active Unknown Family Member Name Dates Details No pertinent family history: Mother, Father(V49.89, Z78.9) Status:Active Unknown Family Member Name Dates Details No pertinent family history: Mother, Father(V49.89, Z78.9) Status:Active Advance Directives No Advanced Directives Records FoundNo Advanced Directives Records FoundNo Advanced Directives Records FoundNo Advanced Directives Records FoundNo Advanced Directives Records FoundNo Advanced Directives Records FoundNo Advanced Directives Records FoundNo Advanced Directives Records Found Chief Complaint 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 * Accompanied by . Patient seen for discussion of genetic test results. Reason for Referral Specialty Diagnoses / Procedures Referred By Contac t Referred To Contact Radiology Diagnoses Primary malignant neuroendocrine neoplasm of duodenum (CMS/HCC) Procedures CT chest abdomen pelvis w IV contrast SammiefloridalmaJazlyn lowe Abdirahman, PASTRY MIXER-JEWEL CORNER BRUSHING MACHINE OPERATOR [id number] [facility] [place] [address] Referral ID Status Reason Start Date Expiration Date Visits Requested Visits Authorized [id number] Pending Review Perform Procedure 05/19/2023 05/18/2024 1 1 Specialty Diagnoses / Procedures Referred By Contact Referred To Contact Gastroenterology Diagnoses Primary malignant neuroendocrine neoplasm of duodenum (CMS/HCC) Procedures EGD TN ESOPHAGOGASTRODUODENOSCOPY TRANSORAL DIAGNOSTIC TN EGD TRANSORAL BIOPSY SINGLE/MULTIPLE Jazlyn Mcarthur, PASTRY MIXER-JEWEL CORNER BRUSHING MACHINE OPERATOR [id number] [facility] [place] [address] Referral ID Status Reason Start Date Expiration Date V isits Requested Visits Authorized [id number] Pending Review 05/19/2023 05/18/2024 1 1 Additional Source Comments (unrecognized sect ion and content) No Status Records FoundNo Status Records FoundNo Status Records FoundNo Status Records FoundNo Status Records FoundNo Status Records FoundNo Status Records FoundNo Status Records Found INFORMATION SOURCE (unrecogn ized section and content) DATE CREATED AUTHOR 10/12/[address] [facility] DATE CREATED AUTHOR AUTHOR'S ORGANIZ ATION 06/13/2021 [facility] DATE CREATED AUTHOR AUTHOR'S ORGANIZ ATION 12/06/2021 [employer] DATE CREATED AUTHOR AUTHOR'S ORGANIZ ATION 05/14/2022 [facility] DATE CREATED AUTHOR AUTHOR'S ORGANIZ ATION 09/17/2022 [facility] DATE CREATED AUTHOR AUTHOR'S ORGANIZ ATION 05/28/2023 [facility] DATE CREATED AUTHOR AUTHOR'S ORGANIZ ATION 06/29/2023 [facility] DATE CREATED AUTHOR AUTHOR'S ORGANIZ ATION 07/01/2023 [facility] Reason for Visit (unrecogniz ed section and content) Specialty Diagnoses / Procedures Referred By Contac t Referred To Contact Radiology Diagnoses Primary malignant neuroendocrine neoplasm of duodenum (CMS/HCC) Procedures CT chest abdomen pelvis w IV contrast SammiesamJazlyn Abdirahman, PASTRY MIXER-JEWEL CORNER BRUSHING MACHINE OPERATOR [id number] [facility] [place] [id number] Referral ID Status Reason Start Date Expiration Date Visits Requested Visits Authorized [id number] Pending Review Perform Procedure 05/19/2023 05/18/2024 1 1 Specialty Diagnoses / Procedures Referred By Contact Referred To Contact Gastroenterology Diagnoses Primary malignant neuroendocrine neoplasm of duodenum (CMS/HCC) Procedures EGD TN ESOPHAGOGASTRODUODENOSCOPY TRANSORAL DIAGNOSTIC TN EGD TRANSORAL BIOPSY SINGLE/MULTIPLE Jazlyn Mcarthur, PASTRY MIXER-JEWEL CORNER BRUSHING MACHINE OPERATOR [id number] [facility] [place] [id number] Referral ID Status Reason Start Date Expiration Date V isits Requested Visits Authorized [id number] Pending Review 05/19/2023 05/18/2024 1 1 Care Teams (unrecognized sec tion and content) Lead Cargo Mover Relationship Specialty Start Date End Date Renea Ying DO [address] [place] [address] PCP - General Family Medicine 05/26/23 Lead Cargo Mover Relationship Specialty Start Date End Date Renea Ying DO [address] [place] [address] PCP - General Family Medicine 05/26/23 Lead Cargo Mover Relationship Specialty Start Date End Date Renea iYng DO [address] [place] [address] PCP - General Family Medicine 05/26/23 FOR RECORDS PERTAINING TO PATIENTS WHO ARE OR HAVE BEEN ENROLLED IN A CHEMICAL DEPENDENCY/SUBSTANCEABUSE PROGRAM, SOME INFORMATION MAY BE OMITTED. This clinical summary was aggregated from multiple sources. Caution should be exercised in using it in the provision of clinical care. This summary normalizes information from multiple sources, and as a consequence, information in this document may materially change the coding, format and clinical context of patient data. In addition, data may be omitted in some cases. CLINICAL DECISIONS SHOULD BE BASED ON THE PRIMARY CLINICAL RECORDS. [facility] [employer] [facility]. provides no warranty or guarantee of the accuracy or completeness of information in this document.
--- NOTE | 2023-07-10 01:24 | ED.GENADUL1 ---
HPI - General Adult General Chief complaint: Arrhythmia/Palpitations Stated complaint: SLOW HR Time Seen by Provider: 07/09/23 21:12 Source: patient Mode of arrival: walk-in History of Present Illness HPI narrative: 73-year-old male to the emergency department with chief complaint of near syncopal episode at home. Patient reports he has had two episodes now today of heart rate reading is in the 30s and feeling as though he is going to pass out. This is never happened before. There is no chest pain or shortness of breath associated. He has otherwise been at his baseline health. He was seen in the emergency department for this earlier in the day and was ultimately discharged home after an unremarkable workup. He had another episode at home after this and returned as he was instructed. The near-syncope resolved prior to his arrival. Related Data Home Medications Medication Instructions Recorded Confirmed allopurinol 300 mg tablet 300 mg PO DAILY 07/09/23 07/09/23 amlodipine 10 mg tablet 10 mg PO DAILY 07/09/23 07/09/23 bisoprolol fumarate 5 mg tablet 5 mg PO DAILY 07/09/23 07/09/23 fluticasone propionate 50 1 spray intranasal DAILY PRN 07/09/23 07/09/23 mcg/actuation nasal allergy symptoms spray,suspension (24 Hour Allergy Relief) furosemide 20 mg tablet 20 mg PO DAILY 07/09/23 07/09/23 glimepiride 4 mg tablet 4 mg PO BID 07/09/23 07/09/23 losartan 100 mg tablet 100 mg PO DAILY 07/09/23 07/09/23 omeprazole 40 mg capsule,delayed 40 mg PO DAILY 07/09/23 07/09/23 release pioglitazone 30 mg tablet 30 mg PO DAILY 07/09/23 07/09/23 rosuvastatin 10 mg tablet 10 mg PO DAILY 07/09/23 07/09/23 Allergies Allergy/AdvReac Type Severity Reaction Status Date / Time ciprofloxacin [From Cipro] Allergy Severe Verified 07/09/23 14:36 erythromycin base Allergy Severe Verified 07/09/23 14:36 lisinopril Allergy Severe Verified 07/09/23 14:36 Review of Systems ROS Status of ROS 10 or more systems reviewed and unremarkable except as noted in history and below [facility] Medical History (Updated 07/10/23 @ 01:29 by Chucho Brannon MD) FH: cholecystectomy ?Z83.79 - Family history of other diseases of the digestive system (ICD-10) Mitral valve prolapse ?I34.1 - Nonrheumatic mitral (valve) prolapse (ICD-10) Rotator cuff injury ?S46.009A - Unspecified injury of muscle(s) and tendon(s) of the rotator cuff of unspecified shoulder, initial encounter (ICD-10) Diabetes mellitus ?E11.9 - Type 2 diabetes mellitus without complications (ICD-10) Hypertension ?I10 - Essential (primary) hypertension (ICD-10) Surgical History (Updated 07/10/23 @ 00:45 by Yash Ross) History of appendectomy ?Z90.49 - Acquired absence of other specified parts of digestive tract (ICD-10) Exam Narrative Exam Narrative: VITALS: I have reviewed the triage vital signs. GENERAL: Well developed, well appearing adult in no acute distress. NEURO: Alert and oriented. Moves all extremities. Face is symmetric and expressive. EYES: PERRL. No scleral icterus or conjunctival injection. No discharge. HENT: Normocephalic, atraumatic. Hearing is grossly intact. Nares grossly patent and without discharge. Mucous membranes moist. NECK: No JVD. Patient moves neck without restriction. CARDIO: Rhythm regular. Normal rate. No murmur, rub, or gallop. Pulses equal bilaterally in the upper and lower extremity. No lower extremity edema. PULM: Lungs clear to auscultation in all dahl. No wheezes, rales, or rhonchi. No conversational dyspnea. No splinting, stridor, or accessory muscle use. GI/: Abdomen is soft and non-tender. Normoactive bowel sounds. EXTREMITIES: Symmetric muscle bulk. No joint swelling. No clubbing, cyanosis, or deformity. SKIN: Warm and dry. Normal turgor. No rash or lesions appreciated. PSYCH: Mood, affect, and interaction is appropriate to the setting. Constitutional Vital Signs, click to edit/add: Last Vital Signs Temp 97.6 F 07/09/23 21:09 Pulse 68 07/10/23 00:40 Resp 15 07/10/23 00:40 BP 153/81 H 07/10/23 00:30 Pulse Ox 97 07/10/23 00:40 O2 Del Method Room Air 07/09/23 21:09 Course Vital Signs Vital signs: Vital Signs Temperature 97.6 F 07/09/23 21:09 Pulse Rate 76 07/09/23 21:09 Respiratory Rate 30 H 07/09/23 21:09 Blood Pressure 175/77 H 07/09/23 21:09 Pulse Oximetry 97 07/09/23 21:09 Oxygen Delivery Method Room Air 07/09/23 21:09 Temperature 97.6 F 07/09/23 21:09 Pulse Rate 68 07/10/23 00:40 Respiratory Rate 15 07/10/23 00:40 Blood Pressure 153/81 H 07/10/23 00:30 Pulse Oximetry 97 07/10/23 00:40 Oxygen Delivery Method Room Air 07/09/23 21:09 Medical Decision Making MDM Narrative Medical decision making narrative: 73-year-old male to the emergency department with chief complaint of near-syncope episodes of decreased heart rate. Vital stable, patient is afebrile. Cardiac workup is initiated. Here he had a chest x-ray earlier in the day which was normal so this will not be repeated. EKG shows a bigeminal rhythm, no ischemic pattern, normal QTC. Patient remains in an atrial bigeminal pattern likely PAC on telemetry monitoring. Workup is unremarkable. Given this is a repeat visit, patient is abnormal EKG with arrhythmia near-syncope will admit to the hospital for further evaluation and echocardiogram. Patient agrees with this plan. Discussed with his who also agrees. Case discussed with hospitalist who agreed to admit this patient to her service. Medical Records Medical records reviewed: Yes I reviewed the patient's medical records Lab Data Lab results reviewed: Yes I reviewed the patient's lab results Labs: Lab Results 07/09/23 Range/Units 21:30 WBC 10.3 (4.0-11.0) 10^3/uL RBC 4.33 L (4.70-6.10) 10^6/uL Hgb 12.4 L (14.0-18.0) g/dL Hct 39.7 L (42.0-54.0) % MCV 91.7 (80.0-94.0) fL MCH 28.6 (25.9-34.0) pg MCHC 31.2 (29.9-35.2) g/dL RDW 15.0 (11.0-15.0) % Plt Count 377 (150-450) 10^3/uL MPV 10.2 (9.5-13.5) fL Neut % (Auto) 70.6 (43.0-75.0) % Lymph % (Auto) 19.7 L (20.5-60.0) % [place] % (Auto) 8.0 (1.7-12.0) % Eos % (Auto) 1.1 (0.9-7.0) % Baso % (Auto) 0.3 (0.2-2.0) % Neut # (Auto) 7.3 H (1.4-6.5) 10^3/uL Lymph # (Auto) 2.0 (1.2-3.8) 10^3/uL [place] # (Auto) 0.8 (0.3-0.8) 10^3/uL Eos # (Auto) 0.1 (0.0-0.7) 10^3/uL Baso # (Auto) 0.0 (0.0-0.1) 10^3/uL Abs Immat Gran (auto) 0.03 (0.00-0.03) 10^3/uL Imm/Tot Granulo (auto) 0.3 (0.0-0.5) % Sodium 142 (136-145) mmol/L Potassium 4.6 (3.5-5.1) mmol/L Chloride 108 H (98-107) mmol/L Carbon Dioxide 24.5 (21.0-32.0) mmol/L Anion Gap 14.1 BUN 25.0 H (7.0-18.0) mg/dL Creatinine 1.62 H (0.70-1.30) mg/dL Est GFR ( Amer) 51 L (>=60) Est GFR (Non-Af Amer) 42 L (>=60) BUN/Creatinine Ratio 15.4 Glucose 177 H (74-106) mg/dL Calcium 9.0 (8.5-10.1) mg/dL Magnesium 2.0 (1.8-2.4) mg/dL Troponin I High Sens 9.7 (4.0-76.1) pg/mL ECG Data Attestation: ?I have reviewed the pertinent ECG results. Discharge Plan Discharge Chief Complaint: Arrhythmia/Palpitations Clinical Impression: Arrhythmia, Near syncope Patient Disposition: Admitted as Observation Condition: Good
[2023-07-10 05:17] LABS: Basophils Percent Auto 0.3 % (0.2-2.0); Eosinophils Absolute Auto 0.1 10^3/uL (0.0-0.7); Eosinophils Percent Auto 1.4 % (0.9-7.0); Hemoglobin 11.8 g/dL (14.0-18.0); Immature Granulocytes Abs Auto 0.03 10^3/uL (0.00-0.03); Immature Granulocytes Pct Auto 0.3 % (0.0-0.5); Lymphocytes Absolute Auto 1.6 10^3/uL (1.2-3.8); Mean Corpuscular HGB Conc 31.9 g/dL (29.9-35.2); Mean Corpuscular Hemoglobin 29.1 pg (25.9-34.0); Mean Corpuscular Volume 91.4 fL (80.0-94.0); Mean Platelet Volume 10.4 fL (9.5-13.5); Monocytes Absolute Auto 0.8 10^3/uL (0.3-0.8); Monocytes Percent Auto 8.5 % (1.7-12.0); Neutrophils Absolute Auto 6.5 10^3/uL (1.4-6.5); Neutrophils Percent Auto 71.5 % (43.0-75.0); Platelet Count 324 10^3/uL (150-450); Red Blood Count 4.05 10^6/uL (4.70-6.10); Red Cell Distribution Width 14.9 % (11.0-15.0); White Blood Count 9.1 10^3/uL (4.0-11.0)
[2023-07-10 05:50] LABS: Alanine Aminotransferase 15 U/L (16-63); Albumin Globulin Ratio 0.9; Alkaline Phosphatase 82 U/L (46-116); Anion Gap 12.3; Aspartate Amino Transferase 13 U/L (15-37); BUN Creatinine Ratio 21.1; Bilirubin Total 0.3 mg/dL (0.2-1.0); Calcium 8.8 mg/dL (8.5-10.1); Chloride 110 mmol/L (98-107); Estimated GFR (African America >60 (>=60); Estimated GFR (Non-African Ame 53 (>=60); Globulin 3.3 g/dL; Glucose 86 mg/dL (74-106); Potassium 4.3 mmol/L (3.5-5.1); Sodium 141 mmol/L (136-145); Total Protein 6.3 g/dL (6.4-8.2)
[2023-07-10 06:13] LABS: Troponin I High Sensitivity 9.9 pg/mL (4.0-76.1)
--- NOTE | 2023-07-10 07:40 | CM.NOTE ---
Medicare Outpatient Observation Notice discussed with pt, pt verbalizes understanding and signs paper. Original given to pt and copy placed on pt's chart.
--- NOTE | 2023-07-10 08:00 | CA_ITS ---
Patient Name Site Name YUSEF MELGAR [facility] Account No Medical Record Number Age Sex Date Time [id number] [facility]:[id number] M 07/10/2023 11:15 At the Request Of GISELE GARCIA ECHOCARDIOGRAM REPORT PROCEDURE: CA ECHO DOPPLER COMPLETE INDICATIONS: Near syncope; Arrhythmia - Bigeminy, hypertension, diabetes COMPARISON: None. DESCRIPTION: COMPLETE ECHOCARDIOGRAM Real-time transthoracic echocardiography with 2D, M-mode, spectral and color flow Doppler performed. QUALITY: Technical quality was good. 70 , 231#, BSA 2.22 m2 LEFT VENTRICLE: Normal chamber size. Mild concentric left ventricular hypertrophy. Proximal septal hypertrophy (sigmoid septum). Normal systolic function. LV EF: Normal left ventricular ejection fraction, (>55%). DIASTOLIC: Diastolic function is indeterminate. ATRIAL SEPTUM: LEFT ATRIUM: Moderate dilatation. RIGHT ATRIUM: Mild dilatation. RIGHT VENTRICLE: Normal chamber size. Normal right ventricular systolic function. TRICUSPID VALVE: Normal mobility and thickness. No stenosis with trivial regurgitation. Unable to assess right-sided pressures due to lack of measurable tricuspid regurgitation. MITRAL VALVE: Grossly normal. No evidence of mitral valve stenosis. Mild mitral regurgitation. AORTIC VALVE: Normal trileaflet appearance. No visible sclerosis. Normal leaflet mobility. No evidence of aortic valve stenosis. No aortic regurgitation. AORTIC ROOT: Normal diameter and appearance. PULMONIC VALVE: Normal thickness and mobility. No stenosis. No regurgitation. PERICARDIUM: No evidence of pericardial effusion. IVC: Within normal limits. IVC is normal in size. PLEURA: CONCLUSION: 1. Mild concentric left ventricular hypertrophy with normal systolic function. LVEF is 55 to 60%. 2. Normal right ventricular size and systolic function. 3. Mild to moderate biatrial dilatation. 4. Mild mitral regurgitation. 5. No pericardial effusion. Adult Echocardiography Procedure Report Left Ventricle LVEDD (3.7 - 5.6 cm): 5.81 cm LVESD (2.2 - 4.0 cm): 4.68 cm LVIVS thickness (0.6 - 1.2 cm): 1.50 cm LVPW thickness (0.5 - 1.0 cm): 1.20 cm e': 0.10 m/s E - e': 7.65 LVOT Max Gradient: 2.39 mm[Hg] LVOT Area (cm2): 0.77 m/s Peak Velocity (LVOT): 0.77 m/s Mean Velocity (LVOT): 0.52 m/s LVOT Diameter 2.60 cm Left Atrium LA Volume Index (2D A2C): 43.09 ml/m2 Left Atrium Systolic Dimension: 3.82 cm Mitral Valve MV E to A Ratio: 0.75 Mitral Valve A-Wave Peak Velocity: 1.00 m/s Mitral Valve E-Wave Peak Velocity: 0.74 m/s Right Ventricle Aorta AO Root Diam: 3.79 cm Ascending Ao Diam: 3.13 cm Aortic Valve AoV Area (Peak Bogdan): 3.41 cm2, 3.41 cm2 AoV Area (VTI): 3.44 cm2, 3.44 cm2 Peak Velocity(Antegrade Flow): 1.20 m/s Peak Gradient(Antegrade Flow): 5.78 mm[Hg] Mean Velocity(Antegrade Flow): 0.77 m/s Mean Gradient(Antegrade Flow): 2.81 mm[Hg] Velocity Time Integral: 25.50 cm Tricuspid Valve Pulmonic Valve Peak Velocity: 0.81 m/s Peak Gradient: 2.65 mm[Hg] Right Atrium Right Atrium Systolic Pressure: 51.19 ml, 51.19 ml Dictated by: Jai Subramanian M.D. on 07/10/2023 at 20:19 Approved by: Jai Subramanian M.D. on 07/10/2023 at 20:23
--- NOTE | 2023-07-10 09:00 | PCN_ITS ---
CARDIAC STRESS TEST ? Requesting Physician:? Procedure Date:? 07/10/2023 ? Exercise Cardiolite Stress Test ? INDICATION:? Near syncope, bradycardia. ? METHODS:? After risks, benefits and alternatives were explained, written informed consent was obtained.? The patient was brought to the Stress Lab in a resting and fasting state. ? He was connected to the appropriate hemodynamic and electrocardiographic monitoring. ? He underwent a Ferny protocol for exercise.? At the completion of exercise, he was transferred to the Nuclear Lab for imaging.? There were no complications. ? FINDINGS: ? EXERCISE:? The patient exercised for a total duration of 3 minutes and 16 seconds.? Achieving 80% of maximum predicted heart rate.? Resting blood pressure was 128/70, increasing to a maximum of 164/80.? Resting heart rate was 72, increasing to a maximum of 129 beats per minute. ? ELECTROCARDIOGRAPHY:? Resting EKG:? This showed sinus rhythm with no ST-T wave changes.? Normal EKG. During Exercise and Recovery:? There are frequent premature ventricular contractions.? There was ventricular bigeminy.? There was a ventricular couplet.? No significant ST-T wave changes noted. ? FINAL IMPRESSIONS: 1.? No ST-T wave changes noted on exercise. 2.? Frequent ventricular ectopy including couplets and ventricular bigeminy. 3.? Nuclear images are to be read, interpreted and reported in a separate dictation. 4.? Trimble treadmill score is 3.2; estimated one year mortality is 1.3-2.9%.? Risk category is moderate risk.? Angiography may be indicated.? [facility]
[2023-07-10] MEDS: HEPARIN SODIUM (PORCINE) 5,000 UNIT/ML VIAL 5000 UNIT SUBQ (10:30)
--- NOTE | 2023-07-10 11:13 | NM_ITS ---
Patient Name: YUSEF MELGAR MR#: [id number] : 1950 Exam Date: 07/10/2023 Ordering Doctor: [facility] REPORT PROCEDURE: NM GIOVANNA PERF SPECT REST STR COMPARISON: None. INDICATIONS: Chest pain, Near syncope, Abnormal EKG TECHNIQUE: Exam Description: Stress/Rest one day protocol gated SPECT Rest Imagin.6 mCi Tc-99m Cardiolite IV on 07/10/2023 Stress Imaging 31.8 mCi Tc-99m Cardiolite IV on 07/10/2023 Exercise Protocol: Ferny Heart Rate (bpm): Rest: 72 Max: 129 PMHR: 88 Blood Pressure: Rest: 128/70 Max: 164/80 Exercise Time: Minutes: 3 Seconds: 16 Stage Reached: Stage: 2 Mets 5.2 Symptoms: SHORTNESS OF BREATH Rest and peak stress ECG findings were pending and the exercise portion of the study was pending per attending physician Dr. MINOR . For more details please see separate cardiac stress test report. FINDINGS: QUALITY OF STUDY: PERFUSION DEFECT: LOCATION: Basal inferoseptal. Basal inferior. Mid-anterior. Apical anterior. [place]. SIZE: Large (5 or more segments). SEVERITY: Mild. TYPE: Persistent. WALL MOTION: Normal. LV SIZE: Enlarged; EDV 187 mL. TID / TCD: None; 1.0 LVEF: Abnormal. Calculated EF 49%. SUMMARY: Myocardial perfusion imaging study has ABNORMAL findings. CONCLUSION: 1. Moderate sized mildly decreased uptake in the anterior wall extending to the apex , LAD distribution with no redistribution 2. Small area of mildly decreased uptake inferior wall, RCA distribution with no redistribution 3. No reversible ischemia 4. Dilated left ventricle, end-diastolic volume 187 milliliters 5. Low left ventricular ejection fraction of 49% 6. Pending exercise test results Dictated by: Thaddeus Sanchez MD on 07/10/2023 at 15:42 Approved by: Thaddeus Sanchez MD on 07/10/2023 at 15:45
[2023-07-10 11:16] LABS: Glucometer 109 mg/dL (74-106)
--- NOTE | 2023-07-10 11:37 | CM.NOTE ---
Rounds made with Dr. Low, discussed with pt about cardiology consult today for further recommendation. Discussed with pt also about wearing Holter Monitor at discharge. Pt's family doctor has retired, pt plans on f/u with Dr. Ayala.
[2023-07-10] MEDS: LOSARTAN POTASSIUM 50 MG TABLET 100 MG PO (11:44)
[2023-07-10] MEDS: FUROSEMIDE 20 MG TABLET PO (11:44)
[2023-07-10] MEDS: AMLODIPINE BESYLATE 5 MG TABLET 10 MG PO (11:44)
[2023-07-10] MEDS: ROSUVASTATIN 10 EACH PO (11:45)
[2023-07-10] MEDS: PIOGLITAZONE 15 MG TABLET 30 MG PO (11:45)
[2023-07-10] MEDS: OMEPRAZOLE 40 MG CAPSULE.DR PO (11:45)
--- NOTE | 2023-07-10 14:27 | P.HP_ITS ---
H&P: HPI History of Present Illness Chief complaint: SLOW HR NEAR SYNCOPE ARRHYTHMIA Narrative: 73 y/o male to ER with lightheadedness and bradycardia. Patient felt very lightheaded and dizzy. Checked pulse on pulse ox device and in 30s. To ER and pulse in 60s. CE and chest x-ray negative. BNP slightly elevated but no evidence of fluid overload. Patient discharged home and had another episode. Again pulse in 30s on pulx ox device and on watch. To ER and pulse in 60s but now in bigeminy. Admitted for monitoring. Patient feels well and no longer lightheaded. No palpitations or heart racing. Reports history of MVP but no testing for years. Review of Systems ROS Constitutional Denies: fever, chills or night sweats Cardiovascular Reports: lightheadedness; Denies: chest pain, palpitations or edema Respiratory Denies: shortness of breath, cough or wheezing Gastrointestinal Denies: abdominal pain, nausea, vomiting or diarrhea Genitourinary Denies: painful urination PFSH [facility] Medical History (Updated 07/10/23 @ 08:08 by Gerald Low MD) Bradycardia with 31-40 beats per minute ?R00.1 - Bradycardia, unspecified (ICD-10) Paroxysmal cardiac arrhythmia ?I49.8 - Other specified cardiac arrhythmias (ICD-10) Dizziness ?R42 - Dizziness and giddiness (ICD-10) Edema ?R60.9 - Edema, unspecified (ICD-10) Gout ?M10.9 - Gout, unspecified (ICD-10) Rotator cuff injury ?S46.009A - Unspecified injury of muscle(s) and tendon(s) of the rotator cuff of unspecified shoulder, initial encounter (ICD-10) Surgical History (Updated 07/10/23 @ 02:02 by Edith Landis) FH: cholecystectomy ?Z83.79 - Family history of other diseases of the digestive system (ICD-10) History of appendectomy ?Z90.49 - Acquired absence of other specified parts of digestive tract (ICD- 10) Family History (Updated 07/10/23 @ 01:51 by Edith Landis) Father Family history of cancer Family history of diabetes mellitus Family history of hypertension Mother Family history of cancer Family history of hypertension Social History (Updated 07/10/23 @ 01:52 by Edith Landis) Within the past year, how often did you have a drink containing alcohol: never Score interpretation: A score less than 4 is consistent with normal alcohol consumption. Smoking status: Former smoker Non-prescribed substance use: denies use Previous occupational history: retired Highest level of school completed/degree received: some college, no degree Are you now , , , , never or living with a partner: In a typical week, how many times do you talk on the telephone with family, friends, or neighbors: 3 or more times per week How often do you get together with friends or relatives: 3 or more times per week How often do you attend mandaeism or scientologist services: never Little interest or pleasure in doing things: not at all Feeling down, depressed, or hopeless: not at all Feel stressed/tense/nervous/anxious/difficulty sleeping: not at all Do you think of yourself as: straight/heterosexual Gender Identity: male Meds Home Medications and Allergies Home Medications Medication Instructions Recorded Confirmed Type allopurinol 300 mg tablet 300 mg PO DAILY 07/09/23 07/10/23 History amlodipine 10 mg tablet 10 mg PO DAILY 07/09/23 07/10/23 History bisoprolol fumarate 5 mg tablet 5 mg PO DAILY 07/09/23 07/10/23 History fluticasone propionate 50 1 spray intranasal DAILY PRN 07/09/23 07/10/23 History mcg/actuation nasal allergy symptoms spray,suspension (24 Hour Allergy Relief) furosemide 20 mg tablet 20 mg PO DAILY 07/09/23 07/10/23 History losartan 100 mg tablet 100 mg PO DAILY 07/09/23 07/10/23 History omeprazole 40 mg capsule,delayed 40 mg PO DAILY 07/09/23 07/10/23 History release pioglitazone 30 mg tablet 30 mg PO DAILY 07/09/23 07/10/23 History rosuvastatin 10 mg tablet 10 mg PO DAILY 07/09/23 07/10/23 History Allergies Allergy/AdvReac Type Severity Reaction Status Date / Time ciprofloxacin [From Cipro] Allergy Severe Verified 07/09/23 14:36 erythromycin base Allergy Severe Verified 07/09/23 14:36 lisinopril Allergy Severe Verified 07/09/23 14:36 Exam Constitutional Vital Signs, click to edit/add: Last Vital Signs Temp 98.0 F 07/10/23 05:28 Pulse 73 07/10/23 14:01 Resp 20 07/10/23 05:28 BP 137/73 07/10/23 05:28 Pulse Ox 96 07/10/23 05:28 O2 Del Method Room Air 07/10/23 05:28 Documenting provider has reviewed patient's vital signs: yes Common normals: no apparent distress, oriented x3 and alert HENMT Common normals: normocephalic Respiratory Common normals: normal respiratory effort and clear to auscultation bilaterally Cardio Common normals: regular rate, regular rhythm, no gallops, no murmurs and no rub GI Common normals: Normal to inspection, nondistended, normoactive bowel sounds present and non-tender Extremity Common normals: no pedal edema Results Labs Labs: Short CBC 07/09/23 07/10/23 Range/Units 21:30 04:27 WBC 10.3 9.1 (4.0-11.0) 10^3/uL Hgb 12.4 L 11.8 L (14.0-18.0) g/dL Hct 39.7 L 37.0 L (42.0-54.0) % Plt Count 377 324 (150-450) 10^3/uL BMP 07/09/23 07/10/23 21:30 04:27 Sodium 142 141 Potassium 4.6 4.3 Chloride 108 H 110 H Carbon Dioxide 24.5 23.0 BUN 25.0 H 28.0 H Creatinine 1.62 H 1.33 H Glucose 177 H 86 Calcium 9.0 8.8 Liver Function 07/10/23 Range/Units 04:27 Total Bilirubin 0.3 (0.2-1.0) mg/dL AST 13 L (15-37) U/L ALT 15 L (16-63) U/L Alkaline Phosphatase 82 (46-116) U/L Albumin 3.0 L (3.4-5.0) g/dL Assessment and Plan Assessment and Plan (1) Bradycardia: (2) Near syncope: (3) Bigeminal rhythm: (4) Type 2 diabetes mellitus with hyperglycemia: (5) Hypertension: (6) Mitral valve prolapse: Plan Admitted with bradycardia and bigeminy. Initially planned on holding bisoprolol but patient took home medication without notifying nursing. Cardiology consulted and stress test ordered. Further disposition after stress test.
[2023-07-10 16:24] LABS: Glucometer 121 mg/dL (74-106)
--- NOTE | 2023-07-10 16:59 | P.CN_ITS ---
<Statement entered by RADHA ELAINE - 07/17/23 16:40> This documentation has been reviewed and approved. Consult Note: HPI Data of Consult Patient: new to practice Consult date: 07/10/23 Requesting Physician: Gerald Low MD Primary Care Provider: VANESSA FERRIS Consult Narrative Reason for consult: Near syncope, arrythmia Narrative: 73-year-old male to the emergency department with chief complaint of near syncopal episode at home. Patient reports he has had two episodes now today of heart rate reading is in the 30s and feeling as though he is going to pass out. This is never happened before. There is no chest pain or shortness of breath associated. Pt was noted to have frequent PVCs and bigemeny on telemetry. at bedside reports that pt had Chest pressure overnight. Pt denied any current chest pain, SOB, orthopnea, palpitations, lightheadedness, dizziness or syncope today. cc:: CC: Gerald Low MD Review of Systems ROS Constitutional Denies: fever, chills or change in weight Cardiovascular Denies: chest pain or edema Respiratory Denies: shortness of breath or cough PFSH PFSH Medical History Bradycardia with 31-40 beats per minute ?R00.1 - Bradycardia, unspecified (ICD-10) Paroxysmal cardiac arrhythmia ?I49.8 - Other specified cardiac arrhythmias (ICD-10) Dizziness ?R42 - Dizziness and giddiness (ICD-10) Edema ?R60.9 - Edema, unspecified (ICD-10) Gout ?M10.9 - Gout, unspecified (ICD-10) Rotator cuff injury ?S46.009A - Unspecified injury of muscle(s) and tendon(s) of the rotator cuff of unspecified shoulder, initial encounter (ICD-10) Surgical History FH: cholecystectomy ?Z83.79 - Family history of other diseases of the digestive system (ICD-10) History of appendectomy ?Z90.49 - Acquired absence of other specified parts of digestive tract (ICD- 10) Family History Father Family history of cancer Family history of diabetes mellitus Family history of hypertension Mother Family history of cancer Family history of hypertension Social History Within the past year, how often did you have a drink containing alcohol: never Score interpretation: A score less than 4 is consistent with normal alcohol consumption. Smoking status: Former smoker Non-prescribed substance use: denies use Previous occupational history: retired Highest level of school completed/degree received: some college, no degree Are you now , , , , never or living with a partner: In a typical week, how many times do you talk on the telephone with family, friends, or neighbors: 3 or more times per week How often do you get together with friends or relatives: 3 or more times per week How often do you attend moravian or church services: never Little interest or pleasure in doing things: not at all Feeling down, depressed, or hopeless: not at all Feel stressed/tense/nervous/anxious/difficulty sleeping: not at all Do you think of yourself as: straight/heterosexual Gender Identity: male Meds Home Medications and Allergies Home Medications Medication Instructions Recorded Confirmed Type allopurinol 300 mg tablet 300 mg PO DAILY 07/09/23 07/10/23 History amlodipine 10 mg tablet 10 mg PO DAILY 07/09/23 07/10/23 History bisoprolol fumarate 5 mg tablet 5 mg PO DAILY 07/09/23 07/10/23 History fluticasone propionate 50 1 spray intranasal DAILY PRN 07/09/23 07/10/23 History mcg/actuation nasal allergy symptoms spray,suspension (24 Hour Allergy Relief) furosemide 20 mg tablet 20 mg PO DAILY 07/09/23 07/10/23 History losartan 100 mg tablet 100 mg PO DAILY 07/09/23 07/10/23 History omeprazole 40 mg capsule,delayed 40 mg PO DAILY 07/09/23 07/10/23 History release pioglitazone 30 mg tablet 30 mg PO DAILY 07/09/23 07/10/23 History rosuvastatin 10 mg tablet 10 mg PO DAILY 07/09/23 07/10/23 History Allergies Allergy/AdvReac Type Severity Reaction Status Date / Time ciprofloxacin [From Cipro] Allergy Severe Verified 07/09/23 14:36 erythromycin base Allergy Severe Verified 07/09/23 14:36 lisinopril Allergy Severe Verified 07/09/23 14:36 Exam Constitutional Vital Signs, click to edit/add: Last Vital Signs Temp 97.8 F 07/10/23 14:00 Pulse 73 07/10/23 14:01 Resp 18 07/10/23 14:00 BP 139/83 07/10/23 14:00 Pulse Ox 96 07/10/23 14:00 O2 Del Method Room Air 07/10/23 14:00 Common normals: no apparent distress, oriented x3, no limitations, healthy appearing and alert Respiratory Common normals: normal respiratory effort, no use of accessory muscles and clear to auscultation bilaterally Cardio Common normals: no JVD, regular rate, regular rhythm (Noted PVCs), S1 normal heart sound, S2 normal heart sound, no gallops, no murmurs and peripheral pulses 2+ throughout Peripheral pulses: radial pulses present, posterior tibial pulses present and dorsalis pedis pulses present Extremity Common normals: normal to inspection and no clubbing, cyanosis or edema Neuro Common normals: oriented x3 and CN's II-XII intact bilaterally Psych Common normals: mental status grossly normal, thought process normal, cooperative, affect normal and speech normal Results Labs Labs: Short CBC 07/09/23 07/10/23 Range/Units 21:30 04:27 WBC 10.3 9.1 (4.0-11.0) 10^3/uL Hgb 12.4 L 11.8 L (14.0-18.0) g/dL Hct 39.7 L 37.0 L (42.0-54.0) % Plt Count 377 324 (150-450) 10^3/uL BMP 07/09/23 07/10/23 21:30 04:27 Sodium 142 141 Potassium 4.6 4.3 Chloride 108 H 110 H Carbon Dioxide 24.5 23.0 BUN 25.0 H 28.0 H Creatinine 1.62 H 1.33 H Glucose 177 H 86 Calcium 9.0 8.8 Liver Function 07/10/23 Range/Units 04:27 Total Bilirubin 0.3 (0.2-1.0) mg/dL AST 13 L (15-37) U/L ALT 15 L (16-63) U/L Alkaline Phosphatase 82 (46-116) U/L Albumin 3.0 L (3.4-5.0) g/dL ECG ECG interpretation date: 07/09/23 Interpretation: Interpretive Statements 1100 Sinus rhythm 1974 with frequent ectopic premature complexes in a pattern of bigeminy 9140 abnormal rhythm ECG Compared to ECG 07/09/2023 14:31:55 First degree AV block no longer present Ventricular premature complex(es) no longer present Electronically Signed On 07-10-2023 14:22:26 EST by PAM GARZA Imaging Chest x-ray: Attestation: I have reviewed the pertinent imaging results. Radiologist's impression: FINDINGS: Lungs are clear. No focal consolidation, pleural effusion, or pneumothorax. Pulmonary vasculature is within normal limits. There is aortic atherosclerosis. Heart size is normal. XR/XR chest 1V IMPRESSION: 1. No acute cardiopulmonary disease. Additional Findings Additional findings: Telemetry reviewed- currently pt is Bigemeny rhythm, noted frequent PVCs and BBB on tele. Rate controlled Assessment and Plan Assessment and Plan (1) Bradycardia: Assessment and Plan: Bradycardia is r/t non perfused PVCs (2) Near syncope: Assessment and Plan: Ordered treadmill stress test for ischemic evaluation with near syncope, reported chest pain overnight, abnormal EKG and frequent PVCs, Pt also has upcoming abdominal surgery/procedure next week scheduled Provider was present during treadmill portion of stress test and with peak exertion increased ectopy, ischemia and NSVT- therefore d/w pt that will schedule outpt cardiac cath to assess for any significant CAD/stenosis hopefully next week at [facility] and he voiced understanding. COntinue bisoprolol- beta janet for NSVT. No heavy exertion until cardiac cath is completed. Pt may DC to home- Stress test and preliminary Echo results, pt history and symptoms were d/w Dr Catherine and he is agreeable with above plan of care. (3) Bigeminal rhythm: Assessment and Plan: increase bisoprolol to 10 mg daily (4) Type 2 diabetes mellitus with hyperglycemia: Assessment and Plan: managed per primary service continue statin Qualifiers: Diabetes mellitus alf insulin use: without alf use Qualified Code(s): E11.65 - Type 2 diabetes mellitus with hyperglycemia (5) Hypertension: Assessment and Plan: CUrrently HTN is stable, continue all medications - norvasc 10 mg daily, losartan 100 mg daily, bisoprolol at 10 mg daily Qualifiers: Hypertension type: primary hypertension Qualified Code(s): I10 - Essential (primary) hypertension (6) Mitral valve prolapse: Assessment and Plan: stable (7) Non-sustained ventricular tachycardia: Assessment and Plan: Continue bisoprolol dl increase to 10 mg daily. Plan for out pt cardiac cath at [facility] and f/u with [facility] outpt. Plan as above
--- NOTE | 2023-07-14 11:05 | CM.DCFOLLOWU ---
Person spoke with: patient's Zoe How are you feeling? pt sleeping How is your pain? heart is still out of rythym, been more tired Did you understand your discharge instructions? yes, but unsure of any resutls in regards to cardiology, etc. Do you have any questions about your discharge instructions? not discharge Were you given any prescriptions at discharge? yes Were you able to get your prescriptions filled? yes Do you understand how to take your medications as ordered? yes Do you have any questions about your follow up appointment and do you plan to keep your follow up appointment? no questions, filled and returned new patient paperwork for Dr. Ayala. Cardiology follow up on 07/27/23. Is there anything else that you would like to discuss? She had concerns in regards to discharge and nobody wrapping everything up and reviewing testing results. She stated the doctor and administrative accountant left and nobody explained to them anything about the testing Questions/Comments/Concerns/Other: Advised her I would follow up with director of med/surge and case management with concerns.
== END 2023-07-10 18:53 | disposition home or self-care (01) ==
LOC: ER 21:07 → MS 07-10 01:10
PROVIDERS: Registered Nurse; Admitting Provider Family Medicine; Emergency Provider Student in an Organized Health Care Education/Training Program; PCP Family Medicine; Visit Provider Family Medicine
DX: I47.29 Other ventricular tachycardia (principal); R00.1 Bradycardia, unspecified; R55 Syncope and collapse; R00.8 Other abnormalities of heart beat; E11.65 Type 2 diabetes mellitus with hyperglycemia; I10 Essential (primary) hypertension; I34.1 Nonrheumatic mitral (valve) prolapse; R42 Dizziness and giddiness; R07.89 Other chest pain; Z90.49 Acquired absence of other specified parts of digestive tract; Z87.891 Personal history of nicotine dependence; Z79.899 Other long term (current) drug therapy
CPT/HCPCS: 36415; 71045; 78452; 80048; 80053; 82948; 83735; 83880; 84484; 85025; 93005; 93017; 93306; 96372; 99285; A9500; G0378

== ENCOUNTER 2023-07-17 09:30 | Outpatient (OUT) | payer MEDICARE, OTHER, SELFPAY ==
--- NOTE | 2023-07-17 09:39 | US_ITS ---
The [address] [address] Patient Name: YUSEF MELGAR MRN: [id number] date: 1950 Sex: M Assigned Patient Location: [place] Current Patient Location: [place] Accession/Order Number: [id number] Exam Date: 07/17/2023 09:40 Report Date: 07/17/2023 10:21 At the request of: SHAIKH NADIA Procedure: US renal BI EXAM: US renal BI HISTORY: . Left Renal Cyst N28.1 . COMPARISON: None. TECHNIQUE: Grayscale and color imaging was performed FINDINGS: Scanning of the right kidney demonstrates right kidney to measure 12 x 6.5 x 5.5 cm. Color-flow is noted. No solid renal cortical masses or hydronephrosis is noted. There is a 9 x 7 mm simple cyst involving the upper pole of the right kidney. Left kidney measures 11.3 x 5.9 x 5.3 cm. Color-flow is noted. There is a 5 x 4.5 cm simple cyst involving the upper pole of the left kidney. There is a 3.0 x 4.1 cm cyst involving the midpole of the left kidney. The filled bladder is grossly unremarkable. No masses are noted. US/US renal BI IMPRESSION: 1. Bilateral renal cortical cysts. No hydronephrosis or solid renal cortical masses. 2. Normal-appearing filled bladder. Electronically authenticated by: MARCELLO PETTY Date: 07/17/2023 10:21
== END 2023-07-17 09:31 | disposition home or self-care (01) ==
LOC: US 09:32
PROVIDERS: PCP Family Medicine; Visit Provider Internal Medicine
DX: N28.1 Cyst of kidney, acquired (principal)
CPT/HCPCS: 76775

== ENCOUNTER 2023-07-31 16:31 | Emergency (ER) | payer MEDICARE, OTHER, SELFPAY ==
[2023-07-31 16:32] VITALS: BP 126/94; PULSE 63; RESP 22; TEMP 36.7; O2SAT 99; BMI 33.5
[2023-07-31 16:47] VITALS: PULSE 62
--- OUTSIDE RECORDS SUMMARY | 2023-07-31 16:48 | XMS_ITS | CCD ---
Author Name Unknown Address [address] [place] [address] Organization [facility] Care Team Providers Care Rn Mobile Name Role Phone PHYSICIAN, DEFAULT Admitting Unavailable PHYSICIAN, DEFAULT Attending Unavailable Vanessa Steele Unavailable [phone] Unavailable Unavailable CEDRIC, DR MENDEZ Primary Care Unavailable DONNA, DR HURLEY Consulting Unavailable DONNA, DR HURLEY Procedure Practitioner Unava ilSHAIKH Nick Admitting Unavailable SHAIKH AYALA Attending Unavailable ROS, DR CINDI Ackerman Consulting Unavailable PAY, DR MCKINNON Consulting Unavailable RACHEAL ROSAS Consulting Unavailable CINDI RYAN Consulting Unavailable SHAIKH AYALA Consulting Unavailable DONNA, DR HURLEY Consulting Unavailable DONNA, DR HURLEY Admitting Unavailable DONNA, DR HURLEY Attending Unavailable ROSS, MIQUEL Primary Care Unavailable CEDRIC, DR MENDEZ Attending Unavailable CEDRIC, DR MENDEZ Admitting Unavailable JESUS, DR MARCELLO Charles Consulting Unavailable CEDRIC, DR MENDEZ Primary Care Unavailable CEDRIC, DR MENDEZ Consulting Unavailable ROSS, MIQUEL Primary Care Unavailable DONNA, DR HURLEY Consulting Unavailable DONNA, DR HURLEY Admitting Unavailable DONNA, DR HURLEY Attending Unavailable CONCEPCION GEORGE Consulting Unavailable ROSIPKO, MIQUEL Consulting Unavailable Dr. Neftali Knowles Admitting Unavailable Benson, Dr. Neftali Cormier Attending Unavailable Vanessa Steele Primary Care Unavailabl e Petek, Ms. Lawson Attending Unavailable Rostocil, Ms. Jorge Referring Unavailable Vanessa Steele Primary Care Unavailabl e Petek, Ms. Lawson Attending Unavailable Vanessa Steele Primary Care UnavailVanessa Rosa Referring Unavailmayank Knowles, Dr. Neftali Cormier Admitting Unavailable Benson, Dr. Neftali Cormier Attending Unavailable Benson, Dr. Neftali Cormier Admitting Unavailable Mohpamela, Dr. Neftali Cormier Attending Unavailable Xavi Thompson Referring Unavailable Vanessa Steele Primary Care Unavailabl iris Knowles, Neftali Attending Unavailable Dinary, Fazel Admitting Unavailable Dinary, Fazel Attending Unavailable Cedric, Dr. Vanessa Whitley Referring Unavai anthony Ying DO, Renea G Primary Care Provider JAZLYN MCARTHUR Referring Unavailable STEPAN, RENEA G Primary Care Unavailable SAM PADILLA Attending Unavailable JAZLYN MCARTHUR Referring Unavailable STEPAN, RENEA G Primary Care Unavailable STEPAN, RENEA G Attending Unavailable SHAIKH AYALA Attending Unavailable NEFTALI STARR Attending Unavailab le ELTAHAWChrissie, EHAB Referring Unavailable ELTAHAWY, EHAB Admitting Unavailable ELTAHAWY, EHAB Attending Unavailable Shaikh Ayala MD Primary Care Provider Unavailable Primary Care Provider UnavailMaribeth Celeste Attending Unavailable STEPAN, RENEA Referring Unavailable Allergies Allergy Classification Reported Allergen(s) Allergy Type Date of Onset Reaction(s) Facility Angiotensin Converting Enzyme (GODWIN) Inhibitors (3 sources) Lisinopril; Translations: [Lisinopril TABS] [facility]: Quinolones (antibiotic) (3 sources) Ciprofloxacin; Translations: [ciprofloxacin] Drug Allergy [facility] Work Phone: (19 sources) Ciprofloxacin; Translations: [ciprofloxacin] Drug Allergy 3 Unknown, Other [facility] (14 sources) Lisinopril; Translations: [Lisinopril TABS] Drug Allergy 3 Unknown, Cough MG-Gastroente rology-[facility] ke [facility] 450 DO Work Phone: (4 sources) Amino Acids; Translations: [LISINOPRIL] Drug Allergy 1 [facility] (1 source) Ciprofloxacin Drug Allergy [facility] (1 source) Erythromycin Drug Allergy [facility] (6 sources) Erythromycin; Translations: [ERYTHROMYCIN] Drug Allergy 3 Unknown, GI bleeding [facility] Work Phone: (3 sources) Azithromycin; Translations: [AZITHROMYCIN] Drug Allergy 8 [facility] Repository (2 sources) Lisinopril Allergy to substance 3 Cough [facility] Medications Current Medications Medication Drug Class(es) Dates Sig (Normalized) Sig (Original) allopurinol 300 mg oral tablet (19 sources) Xanthine Oxidase Inhibitor Start: 12-08-2022 allopurinol (Zyloprim) 300 MG tablet Indications: Gout, unspecified cause, unspecified chronicity, unspecified site TAKE 1 TABLET DAILY 90 tablet 3 12/08/2022 Active Allopurinol 300 MG Oral Tablet Quantity: 0 Refills: 0 Ordered: 08-Jan-2021 DO Active amLODIPine 10 mg oral tablet (19 sources) Dihydropyridine Calcium Channel Janet Start: 12-08-2022 amLODIPine (Norvasc) 10 MG tablet Indications: Primary hypertension (CMS/HCC) TAKE 1 TABLET DAILY 90 tablet 3 12/08/2022 Active amLODIPine Besyl ate 10 MG Oral Tablet Quantity: 0 Refills: 0 Ordered: 08-Jan-2021 DO Active bisoprolol fumarate 10 mg oral tablet (20 sources) beta-Adrenergic Janet Start: 07-10-2023 End: 10-27-2023 take 1 tablet by mouth in the morning bisoprolol (Zebeta) 10 MG tablet Indications: Primary hypertension (CMS/HCC) Take 1 tablet (10 mg) by mouth in the morning. 90 tablet 0 07/29/2023 10/27/2023 Active take 1 tablet by mouth once danielle y bisoprolol (Zebeta) 5 mg tablet Take 1 tablet (5 mg) by mouth once daily. 0 Active Bisoprolol Fumar ate 5 MG Oral Tablet Quantity: 0 Refills: 0 Ordered: 08-Jan-2021 DO Active dapagliflozin 10 mg oral tablet (2 sources) Sodium-Glucose Cotransporter 2 Inhibitor Start: 07-20-2023 End: 10-18-2023 take 1 tablet by mouth in the morning Farxiga 10 MG Indications: Stage 3a chronic kidney disease (HCC) ([facility]) Take 1 tablet (10 mg) by mouth in the morning. 90 tablet 0 07/20/2023 07/30/2023 Discontinued (Cost of medication) empagliflozin 25 mg oral tablet (1 source) Sodium-Glucose Cotransporter 2 Inhibitor Start: 07-30-2023 End: 10-28-2023 take 1 tablet by mouth in the morning empagliflozin (Jardiance) 25 MG Indications: Stage 3a chronic kidney disease (HCC) ([facility]) , Type 2 diabetes mellitus with stage 3a chronic kidney disease, without long-term current use of insulin (HCC) ([facility]) Take 1 tablet (25 mg) by mouth in the morning. 90 tablet 0 07/30/2023 10/28/2023 Active fluticasone propionate 0.05 mg/actuat metered dose nasal spray (2 sources) Corticosteroid take 2 spray(s) nasal route in the morning fluticasone (Flonase) 50 MCG/ACT nasal spray Administer 2 sprays into each nostril in the morning. 0 Active fluticasone propionate (ArmonAir Digihaler) 55 mcg/actuation aero powdr breath act w/sensor (4 sources) fluticasone propionate (ArmonAir Digihaler) 55 mcg/actuation aero powdr breath act w/sensor Inhale 55 % once daily. 0 Active furosemide 20 mg oral tablet (19 sources) Loop Diuretic Start: 12-10-2022 End: 12-10-2023 take 1 tablet by mouth in the morning furosemide (Lasix) 20 MG tablet Indications: Primary hypertension ([facility]) Take 1 tablet (20 mg) by mouth in the morning. 90 tablet 3 12/10/2022 12/10/2023 Active Furosemide 20 MG Oral Tablet Quantity: 0 Refills: 0 Ordered: 08-Jan-2021 DO Active glimepiride 4 mg oral tablet (19 sources) Sulfonylurea take 1 tablet by mouth before mealtime glimepiride (Amaryl) 4 MG tablet Take 4 mg by mouth in the morning. Take before meals. 0 Active Glimepiride 4 MG Oral Tablet Quantity: 0 Refills: 0 Ordered: 08-Jan-2021 DO Active losartan potassium 100 mg oral tablet (19 sources) Angiotensin 2 Receptor Janet Start: 12-08-2022 losartan (Cozaar) 10 0 MG tablet Indications: Primary hypertension (CMS/HCC) TAKE 1 TABLET DAILY 90 tablet 3 12/08/2022 Active Losartan Potassi um 100 MG Oral [...] Active rosuvastatin calcium 10 mg oral tablet (19 sources) HMG-CoA Reductase Inhibitor Start: 12-10-2022 End: 12-10-2023 take 1 tablet by mouth in the morning rosuvastatin (Crestor) 10 MG tablet Indications: Mixed hyperlipidemia (CMS/HCC) Take 1 tablet (10 mg) by mouth in the morning. 90 tablet 3 12/10/2022 12/10/2023 Active Rosuvastatin Lawson cium 10 MG Oral [...] tumor of the duodenum] Onset: 04-29-2022 Chronic Cardiac dysrhythmias (2 sources) Nonsustained ventricular tachycardia ; Translations: [NSVT (nonsustained ventricular tachycardia)] Onset: 07-10-2023 07-15-2023 Chronic Chronic kidney disease (3 sources) Chronic kidney disease stage 3A ; Translations: [Stage 3a chronic kidney disease (HCC)] Onset: 07-15-2023 07-15-2023 Chronic Coronary atherosclerosis and other heart disease (2 sources) Atherosclerotic heart disease of [place] coronary artery without angina pectoris; Translations: [Atherosclerotic heart disease of [place] coronary artery without angina pectoris] Onset: 07-27-2023 Chronic Diabetes mellitus with complications (7 sources) Polyneuropathy due to type 2 diabetes mellitus; Translations: [Type 2 diabetes mellitus with diabetic polyneuropathy] Onset: 06-24-2021 11-24-2022 Chronic Diabetes mellitus without complication (2 sources) Type 2 diabetes mellitus without complications; Translations: [TYPE 2 DM WITHOUT COMPLICATIONS] Onset: 12-12-2020 Chronic Disorders of lipid metabolism (3 sources) Hyperlipidemia, unspecified; Translations: [Mixed hyperlipidemia] Onset: 12-12-2020 11-24-2022 Chronic Diverticulosis and diverticulitis (3 sources) Diverticulosis of large intestine without perforation or abscess without bleeding; Translations: [Diverticulosis of sigmoid colon] Onset: 12-12-2020 02-24-2023 Chronic Esophageal disorders (4 sources) Gastro-esophageal reflux disease without esophagitis; Translations: [Gastroesophageal reflux disease] Onset: 12-12-2020 02-24-2023 Chronic Essential hypertension (7 sources) Essential (primary) hypertension; Translations: [Essential hypertension] Onset: 12-12-2020 07-29-2023 Chronic Gastritis and duodenitis (1 source) Unspecified chronic gastritis without bleeding; Translations: [Unspecified chronic gastritis without bleeding] Onset: 04-29-2022 Chronic Gout and other crystal arthropathies (2 sources) Gout; Translations: [Gout, unspecified] Onset: 06-29-2023 06-29-2023 Chronic Hyperplasia of prostate (15 sources) Benign prostatic hypertrophy with outflow obstruction; Translations: [Hypertrophy (benign) of prostate with urinary obstruction and other lower urinary tract symptoms (LUTS)] Onset: 02-24-2023 02-24-2023 Chronic Malignant neoplasm without specification of site (20 sources) Primary malignant neuroendocrine neoplasm of duodenum; 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] Onset: 11-28-2020 Chronic Other aftercare (1 source) Other intermediate (current) drug therapy; Translations: [OTH STONE CUTTER CURRENT DRUG THERAPY] Onset: 06-12-2021 Episodic Other and unspecified benign neoplasm (1 source) Benign carcinoid tumor of the duodenum; Translations: [Benign carcinoid tumor of the duodenum] Onset: 05-12-2022 Episodic Other diseases of kidney and ureters (2 sources) Cyst of kidney; Translations: [Cyst of kidney, acquired] Onset: 06-29-2023 07-15-2023 Episodic Other disorders of stomach and duodenum (1 source) Other diseases of stomach and duodenum; Translations: [Other diseases of stomach and duodenum] Onset: 05-12-2022 Episodic Other endocrine disorders (2 sources) Hypoglycemia; Translations: [Hypoglycemia, unspecified] Onset: 02-24-2023 02-24-2023 Chronic Other inflammatory condition of skin (2 sources) Pityriasis rosea; Translations: [Pityriasis rosea] Onset: 02-24-2023 02-24-2023 Chronic Other liver diseases (2 sources) Liver disease, unspecified; Translations: [Liver disease, unspecified] Onset: 05-20-2021 Chronic Other liver diseases (1 source) Abnormal levels of other serum enzymes; Translations: [ABNORMAL LEVELS OTHER SERUM ENZYMES] Onset: 06-12-2021 Episodic Other lower respiratory disease (2 sources) Nodule of lung; Translations: [Solitary pulmonary nodule] Onset: 06-29-2023 07-15-2023 Episodic Other nervous system disorders (2 sources) Chronic pain; Translations: [Other chronic pain] Onset: 02-24-2023 02-24-2023 Chronic Other nutritional; endocrine; and metabolic disorders (2 sources) Morbid obesity; Translations: [Morbid (severe) obesity due to excess calories] Onset: 11-24-2022 11-24-2022 Chronic Other nutritional; endocrine; and metabolic disorders (2 sources) Body mass index 30+ - obesity; Translations: [Obesity, unspecified] Onset: 02-24-2023 02-24-2023 Chronic Other screening for suspected conditions (not mental disorders or infectious disease) (20 sources) Patient encounter status; Translations: [Screening for malignant neoplasms of prostate] Onset: 06-12-2021 07-15-2023 Episodic Other upper respiratory disease (2 sources) Allergic rhinitis; Translations: [Allergic rhinitis, unspecified] Onset: 02-24-2023 02-24-2023 Chronic Other upper respiratory infections (2 sources) Chronic sinusitis; Translations: [Chronic sinusitis, unspecified] Onset: 02-24-2023 02-24-2023 Chronic Residual codes; unclassified (1 source) Personal history of other specified conditions; Translations: [PERSONAL HISTORY OTH SPEC CONDITION] Onset: 06-12-2021 Episodic Rheumatoid arthritis and related disease (1 source) Rheumatoid arthritis, unspecified; Translations: [Rheumatoid arthritis, unspecified] Onset: 04-29-2022 Chronic Septicemia (except in labor) (1 source) Other Gram-negative sepsis; Translations: [OTHER GRAM-NEGATIVE SEPSIS] Onset: 06-12-2021 Episodic Syncope (4 sources) Syncope and collapse; Translations: [Near syncope] Onset: 07-10-2023 Episodic Unclassified (1 source) CONTACT W/AND (SUSP) EXPOS COVID-19; Translations: [CONTACT W/AND (SUSP) EXPOS COVID-19] Onset: 06-12-2021 Unclassified (1 source) Gastric intestinal metaplasia, unspecified; Translations: [Gastric intestinal metaplasia, unspecified] Onset: 04-29-2022 Unclassified (1 source) Other ventricular tachycardia; Translations: [Other ventricular tachycardia] Onset: 07-13-2023 Past or Other Problems Problem Classification Problem [...] unspecified; Translations: [Anemia, unspecified] Onset: 04-29-2022 Episodic Deficiency and other anemia (4 sources) Anemia; Translations: [Anemia, unspecified] Onset: 02-24-2023 02-24-2023 Episodic E Codes: Fall (2 sources) Fall; Translations: [Unspecified fall, initial encounter] Onset: 02-24-2023 02-24-2023 Episodic Gastrointestinal hemorrhage (1 source) Hemorrhage of anus and rectum; Translations: [HEMORRHAGE OF ANUS AND RECTUM] Onset: 12-12-2020 Episodic Other aftercare (2 sources) [facility] (current) use of oral hypoglycemic drugs; Translations: [LONG-TERM USE ORAL HYPOGLYCEMIC DX] Onset: 12-12-2020 Episodic [...] stomach and duodenum] Onset: 04-29-2022 Episodic Other and unspecified benign neoplasm (2 sources) Tubular adenoma of colon; Translations: [Benign neoplasm of colon, unspecified] Onset: 02-24-2023 02-24-2023 Episodic Other connective tissue disease (2 sources) Rotator cuff arthropathy of left shoulder; Translations: [Unspecified rotator cuff tear or rupture of left shoulder, not specified as traumatic] Onset: 02-24-2023 02-24-2023 Episodic Other gastrointestinal disorders (4 sources) Dysphagia, unspecified; Translations: [DYSPHAGIA UNSPECIFIED] Onset: 11-28-2020 Episodic Other gastrointestinal disorders (2 sources) Esophageal dysphagia; Translations: [Other dysphagia] Onset: 02-24-2023 02-24-2023 Episodic Other gastrointestinal disorders (2 sources) Slow transit constipation; Translations: [Slow transit constipation] Onset: 02-24-2023 02-24-2023 Episodic Other nervous system disorders (2 sources) Impairment of balance; Translations: [Other abnormalities of gait and mobility] Onset: 02-24-2023 02-24-2023 Episodic Other non-traumatic joint disorders (2 sources) Pain in right knee; Translations: [Pain in joint, lower leg] Onset: 02-24-2023 02-24-2023 Episodic Screening and history of mental health and substance abuse codes (2 sources) Personal history of nicotine dependence; Translations: [PERSONAL HISTORY OF NICOTINE DEPEND] Onset: 06-12-2021 Episodic Unclassified (1 source) Other ventricular tachycardia; Translations: [Other ventricular tachycardia] Onset: 07-27-2023 Results Test Name Value Interpretation Reference Range Facility Study Interpretation of outs jeanna studyon 07-28-2023 There is no result f or this study. This is a placeholder for comparison films only. [facility] US COMPARISON OF OUTSIDE BRYANT MSon 07-28-2023 US COMPARISON OF OUTSIDE FILMS RADRPT There is no result for this study. This is a placeholder for comparison films only. Final result Normal [facility] 07-27-2023 ANES ----- ----- Attestation signed by Erin Armstrong MD at 07/27/2023 8:32 AM Erin Armstrong MD, MPH, [facility], [facility], [facility] Interventional Cardiology Pager Email: [email or web address] ----- Patient: Yusef Car Procedure Information Date/Time: 07/27/23 1130 Procedures: Coronary angiography - Lt and CORS, recently admit to [facility]- Near syncope, NSVT, chest pain Right heart cath Location: [facility] VP PATIENT 3 / [facility] (Cath) Providers: Erin Armstrong MD Clinical information reviewed: MC10 Meds Physical Exam Airway Mallampati: III TM distance: >3 FB Cardiovascular Rhythm: regular Dental Pulmonary Abdominal Anesthesia Plan ASA 3 Anesthetic plan and risks discussed with patient. Use of blood products discussed with patient who. Plan discussed with attending. Additional Equipment Requests Normal [facility] HPon 07-27-2023 HP ----- ----- Attestation signed by Erin Armstrong MD at 07/27/2023 10:44 AM (Updated) Consult Note: HPI Data of Consult Patient: new to practice Consult date: 07/10/23 Requesting Physician: Gerald Low MD Primary Care Provider: VANESSA STEELE Consult Narrative Reason for consult: Near syncope, arrythmia Narrative: 73-year-old male to the emergency department with chief complaint of near syncopal episode at home. Patient reports he has had two episodes now today of heart rate reading is in the 30s and feeling as though he is going to pass out. This is never happened before. There is no chest pain or shortness of breath associated. Pt was noted to have frequent PVCs and bigemeny on telemetry. at bedside reports that pt had Chest pressure overnight. Pt denied any current chest pain, SOB, orthopnea, palpitations, lightheadedness, dizziness or syncope today. cc:: CC: Gerald Low MD Review of Systems ROS Constitutional Denies: fever, chills or change in weight Cardiovascular Denies: chest pain or edema Respiratory Denies: shortness of breath or cough [facility] Medical History Bradycardia with 31-40 beats per minute R00.1 - Bradycardia, unspecified (ICD-10) Health Information Management [id number] [facility] 2 Patient name: YUSEF CAR Paroxysmal cardiac arrhythmia I49.8 - Other specified cardiac arrhythmias (ICD-10) Dizziness R42 - Dizziness and giddiness (ICD-10) Edema R60.9 - Edema, unspecified (ICD-10) Gout M10.9 - Gout, unspecified (ICD-10) Rotator cuff injury S46.009A - Unspecified injury of muscle(s) and tendon(s) of the rotator cuff of unspecified shoulder, initial encounter (ICD-10) Surgical History FH: cholecystectomy Z83.79 - Family history of other diseases of the digestive system (ICD-10) History of appendectomy Z90.49 - Acquired absence of other specified parts of digestive tract (ICD-10) Family History Father Family history of cancer Family history of diabetes mellitus Family history of hypertension Mother Family history of cancer Family history of hypertension Social History Within the past year, how often did you have a drink containing alcohol: never Score interpretation: A score less than 4 is consistent with normal alcohol consumption. Smoking status: Former smoker Non-prescribed substance use: denies use Previous occupational history: retired Highest level of school completed/degree received: some college, no degree Are you now , , , , never or living with a partner: In a typical week, how many times do you talk on the telephone with family, friends, or neighbors: 3 or more times per week How often do you get together with friends or relatives: 3 or more times per week How often do you attend latter day or mandaeism services: never Little interest or pleasure in doing things: not at all Feeling down, depressed, or hopeless: not at all Feel stressed/tense/nervous/an xious/difficulty sleeping: not at all Do you think of yourself as: straight/heterosexual Gender Identity: male [employer] [id number] [facility] 3 Patient name: YUSEF CAR Home Medications and Allergies Home Medications Medication Instructions Recorded Confirmed Type allopurinol 300 mg tablet 300 mg PO DAILY 07/09/23 07/10/23 History amlodipine 10 mg tablet 10 mg PO DAILY 07/09/23 07/10/23 History bisoprolol fumarate 5 mg tablet 5 mg PO DAILY 07/09/23 07/10/23 History fluticasone propionate 50 1 spray intranasal DAILY PRN 07/09/23 07/10/23 History mcg/actuation nasal allergy symptoms spray,suspension (24 Hour Allergy Relief) furosemide 20 mg tablet 20 mg PO DAILY 07/09/23 07/10/23 History losartan 100 mg tablet 100 mg PO DAILY 07/09/23 07/10/23 History omeprazole 40 mg capsule,delayed 40 mg PO DAILY 07/09/23 07/10/23 History release pioglitazone 30 mg tablet 30 mg PO DAILY 07/09/23 07/10/23 History rosuvastatin 10 mg tablet 10 mg PO DAILY 07/09/23 07/10/23 History Allergies Allergy/AdvReac Type Severity Reaction Status Date / Time ciprofloxacin [From Cipro] Allergy Severe Verified 07/09/23 14:36 erythromycin base Allergy Severe Verified 07/09/23 14:36 lisinopril Allergy Severe Verified 07/09/23 14:36 Exam Constitutional Vital Signs, click to edit/add: Last Vital Signs Temp 97.8 F 07/10/23 14:00 Pulse 73 07/10/23 14:01 Resp 18 07/10/23 14:00 BP 139/83 07/10/23 14:00 Pulse Ox 96 07/10/23 14:00 O2 Del Method Room Air 07/10/23 14:00 Common normals: no apparent distress, oriented x3, no limitations, healthy appearing and aurora (more content not included)... Normal [facility] NURSNOTEon 07-27-2023 NURSNOTE RN educated pt on d/ c instructions. RN encouraged pt to voice any questions or concerns. Pt verbalizes no questions or concerns at this time. Pt was wheeled off of unit with all of belongings. Normal [facility] POCT GLUCOSE METER UNSOLICIT ED RESULTSon 07-27-2023 Glucose [Mass/Vol] 130 mg/dL High 70-105 [facility] Comment on above: Order Comment: Waive d Testing in the ED is performed under the ED CLIA certificate #[id number]. Result Comment: [id number] Performed By: #### L [id number] #### [facility] ([facility]) [address] [place] [address] HPon 07-15-2023 HP Formatting of this n ote is different from the original. Subjective Patient ID: Yusef Car is a 73 y.o. male who presents for Establish Care. Recent hospital admission at [facility]. Abnormal Nuclear stress test. Scheduled for [facility] in Jul. Asmptomatic currently. Current Outpatient Medications on File Prior to Visit Medication Sig Dispense Refill allopurinol (Zyloprim) 300 MG tablet TAKE 1 TABLET DAILY 90 tablet 3 amLODIPine (Norvasc) 10 MG tablet TAKE 1 TABLET DAILY 90 tablet 3 bisoprolol (Zebeta) 10 MG tablet Take 10 mg by mouth in the morning. fluticasone (Flonase) 50 MCG/ACT nasal spray Administer 2 sprays into each nostril in the morning. furosemide (Lasix) 20 MG tablet Take 1 tablet (20 mg) by mouth in the morning. 90 tablet 3 glimepiride (Amaryl) 4 MG tablet Take 4 mg by mouth in the morning. Take before meals. losartan (Cozaar) 100 MG tablet TAKE 1 TABLET DAILY 90 tablet 3 omeprazole (PriLOSEC) [address] capsule Take 40 mg by mouth in the morning. Take before meals. rosuvastatin (Crestor) 10 MG tablet Take 1 tablet (10 mg) by mouth in the morning. 90 tablet 3 FREESTYLE LITE test strip USE DIRECTED ONCE TEST 100 strip 6 [DISCONTINUED] amoxicillin-clavulanate (Augmentin) 875-125 MG tablet Take 1 tablet (875 mg) by mouth in the morning and 1 tablet (875 mg) before bedtime. Do all this for 10 days. 20 tablet 0 [DISCONTINUED] bisoprolol (Zebeta) 5 MG tablet TAKE 1 TABLET DAILY 90 tablet 3 [DISCONTINUED] pioglitazone (Actos) 30 MG tablet TAKE 1 TABLET DAILY 90 tablet 3 No current facility-administered medications on file prior to visit. Allergies Allergen Reactions Azithromycin Ciprofloxacin Other Reaction(s): ?change in mental status Lisinopril Cough Review of System All systems negative except as mentioned in HPI. Visit Vitals BP 110/70 (BP Location: Left arm, Patient Position: Sitting, BP Cuff Size: Large adult) Pulse 59 Temp 98.1 ???F (Tympanic) Ht 5' 10 Wt 242 lb SpO2 99% BMI 34.72 kg/m??? Smoking Status Former BSA 2.33 m??? Patient Health Questionnaire-2 Score: 0 @LABRESULTS@ No images are attached to the encounter. Objective Comfortable, NAD, no active complaints. Physical Exam General: Comfortable, NAD HEENT: AT/NC. Resp: Normal RR, CTA b/l CVS: Normal HR, No mumur noted. GI: soft, non tender, non distended. Neuro: AAOX 3, moving all extremities. Psych: Calm, co operative, no HI/SI. Assessment/Plan Problem List Items Addressed This Visit Primary hypertension (CMS/HCC) - Primary BP well controlled. On average less than 130/90. Tolerating Anti hypertensive w/o adverse effects. Denies lightheadedness, dizziness, syncope, presyncope. Patient encouraged to continue with home BP monitoring and call office if he experiences orthostatic symptoms or persistently elevated BP. On Losartan, Bisoprolol. C/w same. Type 2 diabetes mellitus with kidney complication, without long-term current use of insulin (HCC) (CMS/HCC) Last A1C 6.9 On glimepiride. Stop actose. Started on jardiance. Patient counseled and educated on adverse effects, drug interactions and to reach out to office/pharmacy if questions or concerns related to new medications. Relevant Medications empagliflozin (Jardiance) 25 MG Gastroesophageal reflux disease On omeprazole. C/w same. 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 In remission. Following Oncology. Yearly EGD next due 06/07. Left renal cyst - increased in size. Has Urology appointment in November -- ordered US kidney. Will try to get him in sooner. Adrenal mass 2 cm - stable, unchanged. Will address next appointment Pulm nodule - repeat CT chest planned in 09/05. Renal cyst, left Increased in size on CT 06/06 - repeat US. Refer to Urology. Has an appointment with Dr Mcfarland in November. Relevant Orders US renal complete Ambulatory referral to Urology Nodule of lower lobe of left lung Repeat CT chest in 09/05. Former smoker. Reason for CT chest is to ensure nodule is stable. Hx of duodenal cancer that is currently in remission NSVT (nonsustained ventricular tachycardia) (CMS/HCC) Scheduled for C in July. Patient is currently asymptomatic. Instructed to go to ED if he develops any symptoms concerning for active cardiac ischemia On bisoprolol. Instructed to start using ASA. Abnormal nuclear stress test Nuclear stress test 07/08 - perfusion defect in LAD distribution. Asymptomatic. Instructed to start using ASA. Patient scheduled for C on 07/29/23 No prior hx of CAD Stage 3a chronic kidney disease (HCC) (CMS/HCC) CKD 2-3 due to HTN, T2 DM. Start patient on Jardiance. Stop Actose. Relevant Medications empagliflozin (Jardiance) 25 MG Encounter to establish care with new doctor New Patient, here to establish care. Reviewed medical, surgical and social hx. Reviewed available old records. Reviewed and updated medication (more content not included)... [facility] Orders Onlyon 07-10-2023 Orders Only [id number] Nika Car 1950 M Date Provider Department Center 07/10/2023 Merna-LATANYA [facility] [facility]. No family history on file [facility] EGDon 06-10-2023 Esophagogastroduodenosco py Table formatting from the original result was not included. [facility] EGD Study observation Narrat osvaldo 06-10-2023 [...] EXAM Mayelin Page 06/10/2023 0859 Procedure Location [facility] [address] [facility] [id number] Referring Provider Jazlyn Mcarthur, Conduit Bender-matcher offbearer [address] [facility] [place] [address] Procedure Provider Sam Padilla MD [facility] Work Phone: [facility] Work Phone: Radiology Study observation (narrative) [facility] Work Phone: Glucose Test strip manual (B ld) [Mass/Vol]on 06-10-2023 Glucose [Mass/Vol] 113 mg/dL High 74-99 [facility] Comment on above: Performed By: #### 2 341-6 #### OLIMPIA WARE ([id number]) [facility] ([facility] [address] [place] [address] Glucose [Mass/Vol] 113 mg/dL High 74 - 99 mg/dL [facility] Interpretation and review of laboratory results Abnormal [facility] Surgical pathology studyon 1 08-11-2022 Surgical pathology study Pathology repor t.total SEE COMMENT Surgical Pathology Case: [id number] Authorizing Provider: Sam Padilla MD Collected: 06/10/2023 0859 [place] [facility] [place]ceived: 06/10/2023 0920 Pathologist: Chucho Santacruz MD [...] is submitted in toto in one cassette. MKM Normal [facility] CT Chest and Abdomen and Pel [...] Juanjose Walters 05/27/2023 11:47 AM Dictation workstation: [id number] [facility] MMODAL Interpreted By: Juanjose Jefferson, STUDY: CT CHEST ABDOMEN PELVIS W IV CONTRAST; 05/26/2023 10:16 am INDICATION: 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 COMPARISON: CT abdomen 12/25/2020 ACCESSION NUMBER(S): [id number] ORDERING CLINICIAN: JAZLYN MCARTHUR TECHNIQUE: Contiguous axial [...] scans. COMPARISON: CT abdomen 12/25/2020 ACCESSION NUMBER(S): [id number] ORDERING CLINICIAN: JAZLYN MCARTHUR TECHNIQUE: Contiguous axial [...] Juanjose Walters 05/27/2023 11:47 AM Dictation workstation: [id number] [facility] Work Phone: CT Chest and Abdomen and Pel vis W contrast IVOrdered By: Juanjose Walters on 05-27-2023 [facility] Work Phone: CT CHEST ABDOMEN PELVIS W IV CONTRASTon 05-26-2023 CT CHEST ABDOMEN PELVIS W IV CONTRAST Interpreted By: Juanjose Walters, STUDY: CT CHEST ABDOMEN PELVIS W IV CONTRAST; 05/26/2023 10:16 am INDICATION: 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 COMPARISON: CT abdomen 12/25/2020 ACCESSION NUMBER(S): [id number] ORDERING CLINICIAN: JAZLYN MCARTHUR TECHNIQUE: Contiguous axial [...] Juanjose Walters 05/27/2023 11:47 AM Dictation workstation: [id number] Normal [facility] CT Chest and Abdomen and Pel vis W contrast Kristie 05-26-2023 Radiology Study observation (narrative) [facility] Work Phone: CBC W Auto Differential pane l (Bld)on 05-22-2023 Basophils (Bld) [#/Vol] 0.04 x10*3/uL Normal 0.00-0.10 [facility] Comment on above: Performed By: #### 5 7021-8 #### OLIMPIA WARE ([id number]) [facility] ([facility]) [address] [place] [address] Basophils/100 WBC (Bld) 0.5 % Normal 0.0-2.0 [facility] Comment on above: Performed By: #### 5 7021-8 #### OLIMPIA WARE ([id number]) [facility] ([facility]) [address] [place] [address] Eosinophils (Bld) [#/Vol] 0.09 x10*3/uL Normal 0.00-0.40 [facility] Comment on above: Performed By: #### 5 7021-8 #### OLIMPIA WARE ([id number]) [facility] ([facility]) [address] [place] [address] Eosinophils/100 WBC (Bld) 1.0 % Normal 0.0-6.0 [facility] Comment on above: Performed By: #### 5 7021-8 #### OLIMPIA WARE ([id number]) [facility] ([facility]) [address] [place] [address] Erythrocyte distribution width (RBC) [Ratio] 15.3 % High 11.5-14.5 [facility] Comment on above: Performed By: #### 5 7021-8 #### OLIMPIA WARE ([id number]) [facility] ([facility]) [address] [place] [address] Hematocrit (Bld) [Volume fraction] 40.4 % Low 41.0-52.0 [facility] Comment on above: Performed By: #### 5 7021-8 #### OLIMPIA WARE ([id number]) [facility] ([facility]) [address] [place] [address] Hemoglobin (Bld) [Mass/Vol] 12.7 g/dL Low 13.5-17.5 [facility] Comment on above: Performed By: #### 5 7021-8 #### OLIMPIA WARE ([id number]) [facility] ([facility]) [address] [place] [address] Immature granulocytes (Bld) [#/Vol] 0.04 x10*3/uL Normal 0.00-0.50 [facility] Comment on above: Performed By: #### 5 7021-8 #### OLIMPIA WARE ([id number]) [facility] ([facility]) [address] [place] [address] Immature granulocytes/100 WBC (Bld) 0.5 % Normal 0.0-0.9 [facility] Comment on above: Result Comment: Halima ture Granulocyte Count (IG) includes promyelocytes, myelocytes and metamyelocytes but does not include bands. Percent differential counts (%) should be interpreted in the context of the absolute cell counts (cells/UL). Performed By: #### 5 7021-8 #### OLIMPIA WARE ([id number]) [facility] ([facility]) [address] [place] [address] Lymphocytes (Bld) [#/Vol] 1.47 x10*3/uL Normal 0.80-3.00 [facility] Comment on above: Performed By: #### 5 7021-8 #### OLIMPIA WARE ([id number]) [facility] ([facility]) [address] [place] [address] Lymphocytes/100 WBC (Bld) 17.0 % Normal 13.0-44.0 [facility] Comment on above: Performed By: #### 5 7021-8 #### OLIMPIA WARE ([id number]) [facility] ([facility]) [address] [place] [address] MCH (RBC) [Entitic mass] 28.5 pg Normal 26.0-34.0 [facility] Comment on above: Performed By: #### 5 7021-8 #### OLIMPIA WARE ([id number]) [facility] ([facility]) [address] [place] [address] MCHC (RBC) [Mass/Vol] 31.4 g/dL Low 32.0-36.0 [facility] Comment on above: Performed By: #### 5 7021-8 #### OLIMPIA WARE ([id number]) [facility] ([facility]) [address] [place] [address] MCV (RBC) [Entitic vol] 91 fL Normal 80-100 [facility] Comment on above: Performed By: #### 5 7021-8 #### OLIMPIA WARE ([id number]) [facility] ([facility]) [address] [place] [address] Monocytes (Bld) [#/Vol] 0.54 x10*3/uL Normal 0.05-0.80 [facility] Comment on above: Performed By: #### 5 7021-8 #### OLIMPIA WARE ([id number]) [facility] ([facility]) [address] [place] [address] Monocytes/100 WBC (Bld) 6.2 % Normal 2.0-10.0 U [facility] Comment on above: Performed By: #### 5 7021-8 #### OLIMPIA WARE ([id number]) [facility] ([facility]) [address] [place] [address] Neutrophils (Bld) [#/Vol] 6.48 x10*3/uL High 1.60-5.50 [facility] Comment on above: Result Comment: Perc ent differential counts (%) should be interpreted in the context of the absolute cell counts (cells/uL). Performed By: #### 5 7021-8 #### OLIMPIA WARE ([id number]) [facility] ([facility]) [address] [place] [address] Neutrophils/100 WBC (Bld) 74.8 % Normal 40.0-80.0 [facility] Comment on above: Performed By: #### 5 7021-8 #### OLIMPIA WARE ([id number]) [facility] ([facility]) [address] [place] [address] Nucleated RBC/100 WBC (Bld) [Ratio] 0.0 /100 WBCs Normal 0.0-0.0 [facility] Comment on above: Performed By: #### 5 7021-8 #### OLIMPIA WARE ([id number]) [facility] ([facility]) [address] [place] [address] Platelets (Bld) [#/Vol] 403 x10*3/uL Normal 150-450 [facility] Comment on above: Performed By: #### 5 7021-8 #### OLIMPIA WARE ([id number]) [facility] ([facility]) [id number] [place] [address] RBC (Bld) [#/Vol] 4.46 x10*6/uL Low 4.50-5.90 [facility] Comment on above: Performed By: #### 5 7021-8 #### OLIMPIA WARE ([id number]) [facility] ([facility]) [address] [place] [address] WBC (Bld) [#/Vol] 8.7 x10*3/uL Normal 4.4-11.3 [facility] Comment on above: Performed By: #### 5 7021-8 #### OLIMPIA WARE ([id number]) [facility] ([facility]) [id number] [place] [address] Comprehensive metabolic 2000 panelon 05-22-2023 Albumin BCP dye [Mass/Vol] 4.1 g/dL Normal 3.4-5.0 [facility] Comment on above: Performed By: #### 2 4323-8 #### OLIMPIA WARE ([id number]) [facility] ([facility]) [address] [place] [address] ALP [Catalytic activity/Vol] 73 U/L Normal 33-136 [facility] Comment on above: Performed By: #### 2 4323-8 #### OLIMPIA WARE ([id number]) [facility] ([facility]) [address] [place] [address] ALT With P-5'-P [Catalytic activity/Vol] 8 U/L Low 10-52 [facility] Comment on above: Result Comment: Kanwal ents treated with Sulfasalazine may generate falsely decreased results for ALT. Performed By: #### 2 4323-8 #### OLIMPIA WARE ([id number]) [facility] ([facility]) [address] [place] [address] Anion gap [Moles/Vol] 12 mmol/L Normal 10-20 [facility] Comment on above: Performed By: #### 2 4323-8 #### OLIMPIA WARE ([id number]) [facility] ([facility]) [address] [place] [address] AST With P-5'-P [Catalytic activity/Vol] 10 U/L Normal 9-39 [facility] Comment on above: Performed By: #### 2 4323-8 #### OLIMPIA WARE ([id number]) [facility] ([facility]) [address] [place] [address] Bilirubin [Mass/Vol] 0.6 mg/dL Normal 0.0-1.2 [facility] Comment on above: Performed By: #### 2 4323-8 #### OLIMPIA WARE ([id number]) [facility] ([facility]) [address] [place] [address] Calcium [Mass/Vol] 9.2 mg/dL Normal 8.6-10.3 [facility] Comment on above: Performed By: #### 2 4323-8 #### OLIMPIA WARE ([id number]) [facility] ([facility]) [address] [place] [address] Chloride [Moles/Vol] 105 mmol/L Normal 98-107 [facility] Comment on above: Performed By: #### 2 4323-8 #### OLIMPIA WARE ([id number]) [facility] ([facility]) [address] [place] [address] CO2 [Moles/Vol] 25 mmol/L Normal 21-32 [facility] Comment on above: Performed By: #### 2 4323-8 #### OLIMPIA WARE ([id number]) [facility] ([facility]) [address] [place] [address] Creatinine [Mass/Vol] 1.27 mg/dL Normal 0.50-1.30 [facility] Comment on above: Performed By: #### 2 4323-8 #### OLIMPIA WARE ([id number]) [facility] ([facility] [facility]) [address] [place] [address] GFR/1.73 sq M.predicted MDRD (S/P/Bld) [Vol rate/Area] 59 mL/min/1.73m*2 Low >60 [facility] Comment on above: Result Comment: Calc ulations of estimated GFR are performed using the 2020 CKD-EPI Study Refit equation without the race variable for the IDMS-Traceable creatinine methods. https://jasn.asnjournals.org/content/early//ASN.977 9989738 Performed By: #### 2 4323-8 #### OLIMPIA WARE ([id number]) [facility] ([facility]) [address] [place] [address] Glucose [Mass/Vol] 140 mg/dL High 74-99 [facility] Comment on above: Performed By: #### 2 4323-8 #### OLIMPIA WARE ([id number]) [facility] ([facility]) [address] [facility] [place] [address] Potassium [Moles/Vol] 4.3 mmol/L Normal 3.5-5.3 [facility] Comment on above: Performed By: #### 2 4323-8 #### OLIMPIA WARE ([id number]) [facility] ([facility]) [address] [place] [address] Protein [Mass/Vol] 6.5 g/dL Normal 6.4-8.2 [facility] Comment on above: Performed By: #### 2 4323-8 #### OLIMPIA WARE ([id number]) [facility] ([facility]) [address] [place] [address] Sodium [Moles/Vol] 138 mmol/L Normal 136-145 [facility] Comment on above: Performed By: #### 2 4323-8 #### OLIMPIA WARE ([id number]) [facility] ([facility]) [address] [place] [address] Urea nitrogen [Mass/Vol] 24 mg/dL High 6-23 [facility] Comment on above: Performed By: #### 2 4323-8 #### OLIMPIA WARE ([id number]) [facility] ([facility]) [address] [place] [address] CBC AND DIFFERENTIALon 05-12 % AUTOMATED IMMATURE GRAN Canceled Normal [facility] Comment on above: Order Comment: TEST CBC AND DIFFERENTIAL WAS CANCELLED, 05/12/2022 10:[address] ciaran mcmanus needed. Result Comment: Halima ture Granulocyte Count (IG) includes promyelocytes, myelocytes and metamyelocytes but does not include bands. Percent differential counts (%) should be interpreted in the context of the absolute cell counts (cells/L). Performed By: #### C BCDF #### [facility] [id number] [place] [address] [place] [address] % BASOPHIL Canceled Normal [facility] Comment on above: Order Comment: TEST CBC AND DIFFERENTIAL WAS CANCELLED, 05/12/2022 10:[address] ciaran mcmanus needed. Performed By: #### C BCDF #### [address] [place] [address] % EOSINOPHIL Canceled Normal [facility] Comment on above: Order Comment: TEST CBC AND DIFFERENTIAL WAS CANCELLED, 05/12/2022 10:[address] ciaran mcmanus needed. Performed By: #### C BCDF #### [address] [place] [address] % LYMPHOCYTE Canceled Normal [facility] Comment on above: Order Comment: TEST CBC AND DIFFERENTIAL WAS CANCELLED, 05/12/2022 10:[address] wagoner doesngustabo needed. Performed By: #### C BCDF #### [address] [place] [address] % MONOCYTE Canceled Normal [facility] Comment on above: Order Comment: TEST CBC AND DIFFERENTIAL WAS CANCELLED, 05/12/2022 10:[address] ciaran mcmanus needed. Performed By: #### C BCDF #### [address] [place] [address] % NEUTROPHIL Canceled Normal [facility] Comment on above: Order Comment: TEST CBC AND DIFFERENTIAL WAS CANCELLED, 05/12/2022 10:[address] ciaran mcmanus needed. Performed By: #### C BCDF #### [address] [place] [address] BASOPHIL Canceled Normal [facility] Comment on above: Order Comment: TEST CBC AND DIFFERENTIAL WAS CANCELLED, 05/12/2022 10:[address] ciaran mcmanus needed. Performed By: #### C BCDF #### [address] [place] [address] DIFFERENTIAL Canceled Normal [facility] Comment on above: Order Comment: TEST CBC AND DIFFERENTIAL WAS CANCELLED, 05/12/2022 10:[address] ciaran mcmanus needed. Performed By: #### C BCDF #### [address] [place] [address] EOSINOPHIL Canceled Normal [facility] Comment on above: Order Comment: TEST CBC AND DIFFERENTIAL WAS CANCELLED, 05/12/2022 10:[address] ciaran mcmanus needed. Performed By: #### C BCDF #### [address] [place] [address] HCT Canceled Normal [facility] Comment on above: Order Comment: TEST CBC AND DIFFERENTIAL WAS CANCELLED, 05/12/2022 10:[address] ciaran mcmanus needed. Performed By: #### C BCDF #### [address] [place] [address] HGB Canceled Normal [facility] Comment on above: Order Comment: TEST CBC AND DIFFERENTIAL WAS CANCELLED, 05/12/2022 10:[address] ciaran mcmanus needed. Performed By: #### C BCDF #### [address] [place] [address] LYMPHOCYTE Canceled Normal [facility] Comment on above: Order Comment: TEST CBC AND DIFFERENTIAL WAS CANCELLED, 05/12/2022 10:[address] ciaran mcmanus needed. Performed By: #### C BCDF #### [address] [place] [address] MCHC Canceled Normal [facility] Comment on above: Order Comment: TEST CBC AND DIFFERENTIAL WAS CANCELLED, 05/12/2022 10:[address] ciaran mcmanus needed. Performed By: #### C BCDF #### [address] [place] [address] MCV Canceled [facility] Comment on above: Order Comment: TEST CBC AND DIFFERENTIAL WAS CANCELLED, 05/12/2022 10:[address] ciaran mcmanus needed. Performed By: #### C BCDF #### [address] [place] [address] MONOCYTE Canceled [facility] Comment on above: Order Comment: TEST CBC AND DIFFERENTIAL WAS CANCELLED, 05/12/2022 10:[address] ciaran mcmanus needed. Performed By: #### C BCDF #### [address] [place] [address] NEUTROPHIL Canceled Normal [facility] Comment on above: Order Comment: TEST CBC AND DIFFERENTIAL WAS CANCELLED, 05/12/2022 10:[address] ciaran mcmanus needed. Performed By: #### C BCDF #### [address] [place] [address] PLT Canceled Normal [facility] Comment on above: Order Comment: TEST CBC AND DIFFERENTIAL WAS CANCELLED, 05/12/2022 10:[address] ciaran mcmanus needed. Performed By: #### C BCDF #### [address] [place] [address] RBC Canceled Normal [facility] Comment on above: Order Comment: TEST CBC AND DIFFERENTIAL WAS CANCELLED, 05/12/2022 10:[address] ciaran mcmanus needed. Performed By: #### C BCDF #### [address] [place] [address] RDW-CV Canceled Normal [facility] Comment on above: Order Comment: TEST CBC AND DIFFERENTIAL WAS CANCELLED, 05/12/2022 10:[address] ciaran mcmanus needed. Performed By: #### C BCDF #### [address] [place] [address] WBC Canceled [facility] [place] Comment on above: Order Comment: TEST CBC AND DIFFERENTIAL WAS CANCELLED, 05/12/2022 10:[address] ciaran mcmanus needed. Performed By: #### C BCDF #### [address] [place] [address] COMPREHENSIVE PANELon 2021 ALBUMIN Canceled [facility] [place] Comment on above: Order Comment: TEST COMPREHENSIVE PANEL WAS CANCELLED, 05/12/2022 10:[address] ciaran mcmanus needed. Performed By: #### C MP #### [address] [place] [address] ALKALINE PHOSPHATASE Canceled [facility] [place] Comment on above: Order Comment: TEST COMPREHENSIVE PANEL WAS CANCELLED, 05/12/2022 10:[address] ciaran mcmanus needed. Performed By: #### C MP #### [address] [place] [address] ALT Canceled [facility] [place] Comment on above: Order Comment: TEST COMPREHENSIVE PANEL WAS CANCELLED, 05/12/2022 10:[address] ciaran mcmanus needed. Result Comment: Kanwal ents treated with Sulfasalazine may generate falsely decreased results for ALT. Performed By: #### C MP #### [address] [place] [address] ANION GAP Canceled [facility] [place] Comment on above: Order Comment: TEST COMPREHENSIVE PANEL WAS CANCELLED, 05/12/2022 10:[address] ciaran mcmanus needed. Performed By: #### C MP #### [address] [place] [address] AST Canceled [facility] [place] Comment on above: Order Comment: TEST COMPREHENSIVE PANEL WAS CANCELLED, 05/12/2022 10:[address] ciaran mcmanus needed. Performed By: #### C MP #### [address] [place] [address] BICARBONATE Canceled [facility] [place] Comment on above: Order Comment: TEST COMPREHENSIVE PANEL WAS CANCELLED, 05/12/2022 10:[address] ciaran mcmanus needed. Performed By: #### C MP #### [address] [place] [address] BILIRUBIN,TOTAL Canceled [facility] [place] Comment on above: Order Comment: TEST COMPREHENSIVE PANEL WAS CANCELLED, 05/12/2022 10:[address] ciaran mcmanus needed. Performed By: #### C MP #### [address] [place] [address] CALCIUM Canceled [facility] [place] Comment on above: Order Comment: TEST COMPREHENSIVE PANEL WAS CANCELLED, 05/12/2022 10:[address] ciaran mcmanus needed. Performed By: #### C MP #### [address] [place] [address] CHLORIDE Canceled [facility] Comment on above: Order Comment: TEST COMPREHENSIVE PANEL WAS CANCELLED, 05/12/2022 10:[address] ciaran mcmanus needed. Performed By: #### C MP #### [address] [place] [address] CREATININE Canceled [facility] Comment on above: Order Comment: TEST COMPREHENSIVE PANEL WAS CANCELLED, 05/12/2022 10:[address] ciaran mcmanus needed. Performed By: #### C MP #### [address] [place] [address] eGFR FEMALE Canceled [facility] Comment on above: Order Comment: TEST COMPREHENSIVE PANEL WAS CANCELLED, 05/12/2022 10:[address] ciaran mcmanus needed. Result Comment: CALC ULATIONS OF ESTIMATED GFR ARE PERFORMED USING THE 2020 CKD-EPI STUDY REFIT EQUATION WITHOUT THE RACE VARIABLE FOR THE IDMS-TRACEABLE CREATININE METHODS. https://jasn.asnjournals.org/content/earlyASN.998 7009591 Performed By: #### C MP #### [address] [place] [address] eGFR MALE Canceled [facility] Comment on above: Order Comment: TEST COMPREHENSIVE PANEL WAS CANCELLED, 05/12/2022 10:[address] ciaran mcmanus needed. Result Comment: CALC ULATIONS OF ESTIMATED GFR ARE PERFORMED USING THE 2020 CKD-EPI STUDY REFIT EQUATION WITHOUT THE RACE VARIABLE FOR THE IDMS-TRACEABLE CREATININE METHODS. https://jasn.asnjournals.org/content/earlyASN.678 2910000 Performed By: #### C MP #### [address] [place] [address] GLUCOSE Canceled [facility] Comment on above: Order Comment: TEST COMPREHENSIVE PANEL WAS CANCELLED, 05/12/2022 10:[address] ciaran mcmanus needed. Performed By: #### C MP #### [address] [place] [address] POTASSIUM Canceled [facility] [place] Comment on above: Order Comment: TEST COMPREHENSIVE PANEL WAS CANCELLED, 05/12/2022 10:[address] ciaran mcmanus needed. Performed By: #### C MP #### [address] [place] [address] SODIUM Canceled [facility] [place] Comment on above: Order Comment: TEST COMPREHENSIVE PANEL WAS CANCELLED, 05/12/2022 10:[address] ciaran mcmanus needed. Performed By: #### C MP #### [address] [place] [address] TOTAL PROTEIN Canceled [facility] [place] Comment on above: Order Comment: TEST COMPREHENSIVE PANEL WAS CANCELLED, 05/12/2022 10:[address] ciaran mcmanus needed. Performed By: #### C MP #### [address] [place] [address] UREA NITROGEN Canceled [facility] [place] Comment on above: Order Comment: TEST COMPREHENSIVE PANEL WAS CANCELLED, 05/12/2022 10:[address] ciaran mcmanus needed. Performed By: #### C MP #### [address] [place] [address] Clinic Note - Heme Onc-Follo w Up Visiton 05-12-2022 Clinic Note - Heme Onc-Follow Up Visit Patient Visit Information: Visit Type: Follow Up Visit History of Present Illness: ID Statement: YUSEF CAR is a 72 year old Male Chief Complaint: Duodenal neuroendocrine tumor Interval History: 71 years old gentleman from [place], [place] who has been referred to me from [facility]. The patient complained of acid reflux [...] Weights & Heights: Date: Weight/Scale Type:Height: 26-Aug-2021 13:26562 kg / standing hbemf598.8 cm 20-May-2021 12:62929 kg / standing .8 cm 04-Feb-2021 09:75146 kg / standing .8 cm Physical Exam: Constitutional: Appears well and [...] 26-Aug-2021 1 (more content not included)... Normal [facility] Clinic Note - Intakeon 05-12 Clinic Note [...] 3 Weights & HeightsDate: Weight/Scale Type:Height: 26-Aug-2021 13:23405 kg / standing ednat160.8 cm 20-May-2021 12:54088 kg / standing shtye810.8 cm SpO2 (%)94 % SpO2 Patient Onroom [...] 12-May-2022 09:56 by Kindra Maher (PCNA) [facility] GLUCOSE-POCTon 04-29-2022 Glucose [Mass/Vol] 139 mg/dL High 74 - 99 [facility] Comment on above: Performed By: #### G MARIXA #### [facility] [address] [place] [address] Laboratory - Chemistry and C hemistry - challengeon 04-29-2022 Glucose [Mass/Vol] 139 mg/dL above high threshold 74 - 99 [facility] [place], [place] Work Phone: No Panel Informationon 04-29 [facility] Work Phone: [email or web address] [facility] [place] [facility] [place], [place] Work Phone: [facility] Work Phone: Order Reconciliationon 04-29 Order Reconciliation [...] 1 tab(s) orally once a day [facility] Surgical Pathology Depar tmenton 04-29-2022 [facility] Surgical Pathology Department Name YUSEF CAR Pathologist: DU LUGO Date of Procedure: 04/29/2022 Date Received: 04/29/2022 Date Reported 05/05/2022 Submitting Physician: JEREMIAH MAGAÑA MD Location: OR Copy To/Referring/Attending: VANESSA STEELE MD Other External [...] reviewed this case. Diagnostic interpretation performed at [facility] [address] [place] [address] Clinical History: Follow up history of duodenal [...] positive and negative controls which stained appropriately. [facility] Department of Pathology [address] [place] [address] Normal [facility] Comment on above: Performed By: #### U [facility] #### [facility] Surgical Pathology Department [address] [place] [address] Upper GI endoscopyon 022 Upper GI endoscopy PATIENTNAME Patient Name: Yusef Car EXAMDATE Procedure Date: 04/29/2022 7:25 AM PATIENTID PATIENTACCOUNTNUM PATIENTDOB Date of : 1950 ADMITTYPE Admit Type: Outpatient PATIENTROOM Site: [facility] 1 ETHNICITY Ethnicity: Not or RACE Race: White PROVDR Attending MD: Jeremiah Magaña MD, [id number] ENDOPROCEDURENAME Procedure: Upper GI endoscopy INDICATION Indications: [...] (Doctor), Martha Kyle RN (Nurse), Moi Huff, [employer] Software Engineer EDREFPROVIDER Referring: Vanessa Steele CURRENT_MEDS Medicines: See [...] diet. 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 All rights reserved. The codes documented in this report are preliminary and upon hims coder review may be revised to meet current compliance requirements. ATTDRPART Attending Participa (more content not included)... [facility] General/Metabolic - Rejis olga lidia 12-05-2021 General/Metabolic - Established Patient [...] history, the 84 gene Multi-Cancer Panel from [employer] was recommended and ordered. - I called [...] no significant history of cancer and/or Ashkenazi Nondenominational ancestry on their mother's side, no genetic [...] since our discussion today. Lulu Calle MS, [facility] Licensed Genetic Counselor [facility] [phone]. Chief Complaint Patient seen for discussion of [...] Dec 05 2021 3:54PM EST (Review) [facility] ([facility]on Follow-up visit Patient Discussion/Summary [...] 84-gene Multi-Cancer + RNA analysis panel from [employer]. Our discussion is summarized below. We reviewed [...] affected individuals), and endocrine tumors of the vebogi-khzsoh-ucsgwciqur (GEP) tract. 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 [facility] Note - Heme Onc-Follo w Up Visiton 08-26-2021 Clinic Note - Heme Onc-Follow Up Visit Patient Visit Information: Visit Type: Follow Up Visit History of Present Illness: ID Statement: Mr. Car is a 71 year old male Chief Complaint: Duodenal neuroendocrine tumor Interval History: 71 years old gentleman from [place], [place] who has been referred to me from [facility]. The patient complained of acid reflux [...] Weights & Heights: Date: Weight/Scale Type:Height: 26-Aug-2021 13:90328 kg / standing hdbog613.8 cm 20-May-2021 12:58498 kg / standing .8 cm 04-Feb-2021 09:91410 kg / standing ffzon207.8 cm Physical Exam: Constitutional: Appears well and [...] 13 Complet (more content not included)... [facility] Clinic Note - Intakeon 08-26 Clinic Note - Intake Patient Visit Information: Visit TypeFollow Up Visit Source of Informationpatient Accompanied byspouse Admission Information: Admission Since Last VisitYes [facility] Admission [id number] Admission Reason/Detailssepsis and removal of gall bladder [...] 3 Weights & HeightsDate: Weight/Scale Type:Height: 20-May-2021 12:27958 kg / standing nskog247.8 cm 04-Feb-2021 09:39499 kg / standing ectxn599.8 cm 07-Jan-2021 13:90561 kg / standing ukorw112.8 cm SpO2 (%)95 % SpO2 Patient Onroom [...] 26-Aug-2021 13:50 by Latanya Bhat (PCNA) [facility] CULTURE BLOODon 06-09-2021 Microscopic examination of blood, [...] F Trimethoprim/Sulfamethoxa zole <=20 S F Normal [facility] Comment on above: Performed By: #### C NICOLE #### [facility] [address] [place] [address] Dr. Freda Wayne CBC AUTO DIFFon 06-06-2021 BASO # 0.0 103/ul Normal 0.0-0.1 [facility] Comment on above: Performed By: #### P OCGLUC #### [facility] [address] [place] [address] José Luisdinh Beard Basophils/100 WBC (Bld) 0.1 % Critically low 0.2-2.0 [facility] Comment on above: Performed By: #### P OCGLUC #### [facility] [address] [place] [address] José Luisdinh Beard EO # 0.0 103/ul Normal 0.0-0.7 [facility] Comment on above: Performed By: #### P OCGLUC #### [facility] [address] [place] [address] José Luisdinh Beard Eosinophils/100 WBC (Bld) 0.0 % Critically low 0.9-7.0 [facility] Comment on above: Performed By: #### P OCGLUC #### [facility] [address] [place] [address] José Luis Beard Erythrocyte distribution width (RBC) [Ratio] 15.1 % Critically high 11.0-15.0 [facility] Comment on above: Performed By: #### P OCGLUC #### [facility] [address] [place] [address] José Luis Beard Hematocrit (Bld) [Volume fraction] 34.7 % Critically low 42.0-54.0 [facility] Comment on above: Performed By: #### P OCGLUC #### [facility] [address] [place] [address] José Luis Beard Hemoglobin (Bld) [Mass/Vol] 10.9 g/dL Critically low 14.0-18.0 [facility] Comment on above: Performed By: #### P OCGLUC #### [facility] [address] [place] [address] José Luisdinh Beard IG # 0.04 10e3/ul Critically high 0.00-0.03 [facility] Comment on above: Performed By: #### P OCGLUC #### [facility] [address] [place] [address] José Luis Beard IG % 0.4 % Normal 0.0-0.5 [facility] Comment on above: Performed By: #### P OCGLUC #### [facility] [address] [place] [address] José Luis Beard LYMPH # 0.5 103/ul Critically low 1.2-3.8 [facility] Comment on above: Performed By: #### P OCGLUC #### [facility] [address] [place] [address] José Luis Beard Lymphocytes/100 WBC (Bld) 5.5 % Critically low 20.5-60.0 [facility] Comment on above: Performed By: #### P OCGLUC #### [facility] [address] [place] [address] José Luis Beard MANUAL DIFF REQ NO Normal [facility] Comment on above: Performed By: #### P OCGLUC #### [facility] [address] [place] [address] José Luis Beard MCH (RBC) [Entitic mass] 28.2 pg Normal 25.9-34.0 [facility] Comment on above: Performed By: #### P OCGLUC #### [facility] [address] [place] [address] José Luis Beard MCHC (RBC) [Mass/Vol] 31.4 g/dL Normal 29.9-35.2 [facility] Comment on above: Performed By: #### P OCGLUC #### [facility] [address] [place] [address] José Luis Beard MCV (RBC) [Entitic vol] 89.9 fL Normal 80.0-94.0 [facility] Comment on above: Performed By: #### P OCGLUC #### [facility] [address] [place] [address] José Luis Beard MONO # 0.9 103/ul Critically high 0.3-0.8 [facility] Comment on above: Performed By: #### P OCGLUC #### [facility] [address] [place] [address] José Luis Kisha Monocytes/100 WBC (Bld) 9.4 % Normal 1.7-12.0 [facility] Comment on above: Performed By: #### P OCGLUC #### [facility] [address] [place] [address] José Luis Beard NEUT # 8.1 103/ul Critically high 1.4-6.5 [facility] Comment on above: Performed By: #### P OCGLUC #### [facility] [address] [place] [address] José Luis Beard Neutrophils/100 WBC (Bld) 84.6 % Critically high 43.0-75.0 [facility] Comment on above: Performed By: #### P OCGLUC #### [facility] [address] [place] [address] José Luis Beard Platelet mean volume (Bld) [Entitic vol] 10.5 fL Normal 9.5-13.5 [facility] Comment on above: Performed By: #### P OCGLUC #### [facility] [address] [place] [address] José Luis Beard PLT 263 103/ul Normal 150-450 [facility] Comment on above: Performed By: #### P OCGLUC #### [facility] [address] [place] [address] José Luis Beard RBC 3.86 106/ul Critically low 4.70-6.10 [facility] Comment on above: Performed By: #### P OCGLUC #### [facility] [address] [place] [address] José Luis Beard WBC 9.6 103/ul Normal 4.0-11.0 [facility] Comment on above: Performed By: #### P OCGLUC #### [facility] [address] [place] [address] José Luis Beard CULTURE BLOODon 06-06-2021 Microscopic examination of blood, culture Culture Observations: NO GROWTH AT 5 DAYS. Normal [facility] Comment on above: Performed By: #### C BCMAN #### [facility] [address] [place] [address] Dr. Freda Wayne POINT OF CARE GLUCOSEon 05-16 Glucose [Mass/Vol] 192 mg/dL Critically high 74-106 T [facility] Comment on above: Performed By: #### P OCGLUC #### [facility] [address] [place] [address] Dr. Freda Wayne PROF 14(COMP METB)on 021 Albumin [Mass/Vol] 2.6 g/dL Critically low 3.5-5.0 [facility] Comment on above: Performed By: #### P OCGLUC #### [facility] [address] [place] [address] José Luis Kisha Albumin/Globulin [Mass ratio] 0.7 {ratio} Normal [facility] Comment on above: Performed By: #### P OCGLUC #### [facility] [address] [place] [address] José Luis Kisha ALP [Catalytic activity/Vol] 233 U/L Critically high 38-126 [facility] Comment on above: Performed By: #### P OCGLUC #### [facility] [address] [place] [address] José Luis Kisha ALT [Catalytic activity/Vol] 103 U/L Critically high 21-72 [facility] Comment on above: Performed By: #### P OCGLUC #### [facility] [address] [place] [address] José Luis Kisha Anion gap [Moles/Vol] 12.2 mmol/L Normal [facility] Comment on above: Performed By: #### P OCGLUC #### [facility] [address] [place] [address] José Luis Kisha AST [Catalytic activity/Vol] 44 U/L Normal 17-59 [facility] Comment on above: Performed By: #### P OCGLUC #### [facility] [address] [place] [address] José Luis Kisha Bilirubin [Mass/Vol] 0.4 mg/dL Normal 0.2-1.3 [facility] Comment on above: Performed By: #### P OCGLUC #### [facility] [address] [place] [address] José Luis Kisha Calcium [Mass/Vol] 9.0 mg/dL Normal 8.4-10.2 [facility] Comment on above: Performed By: #### P OCGLUC #### [facility] [address] [address] José Luis Kisha Chloride [Moles/Vol] 102 mmol/L Normal 98-107 [facility] Comment on above: Performed By: #### P OCGLUC #### [facility] [address] [address] José Luis Kisha CO2 [Moles/Vol] 26.9 mmol/L Normal 22.0-30.0 [facility] Comment on above: Performed By: #### P OCGLUC #### [facility] [address] [place] [address] José Luis Kisha Creatinine [Mass/Vol] 1.22 mg/dL Normal 0.66-1.25 [facility] Comment on above: Performed By: #### P OCGLUC #### [facility] [address] [address] José Luis Kisha EGFR-AF CYPRIOT >60 Normal >=60 [facility] Comment on above: Performed By: #### P OCGLUC #### [facility] [address] [place] [address] José Luis Kisha EGFR-NON AF CYPRIOT 58 mL/min/1.73m2 Critically low >=60 [facility] Comment on above: Performed By: #### P OCGLUC #### [facility] [address] [place] [address] José Luis Kisha Globulin (S) [Mass/Vol] 3.6 g/dL Normal [facility] Comment on above: Performed By: #### P OCGLUC #### [facility] [address] [place] [address] José Luis Kisha Glucose [Mass/Vol] 152 mg/dL Critically high 74-106 [facility] Comment on above: Performed By: #### P OCGLUC #### [facility] [address] [place] [address] José Luis Kisha Potassium [Moles/Vol] 4.1 mmol/L Normal 3.4-5.0 [facility] Comment on above: Performed By: #### P OCGLUC #### [facility] [address] [address] José Luis Kisha Protein [Mass/Vol] 6.2 g/dL Normal 6.1-8.2 [facility] Comment on above: Performed By: #### P OCGLUC #### [facility] [address] [address] José Luis Kisha Sodium [Moles/Vol] 137 mmol/L Normal 137-145 [facility] Comment on above: Performed By: #### P OCGLUC #### [facility] [address] [address] José Luis Kisha Urea nitrogen [Mass/Vol] 12.0 mg/dL Normal 9.0-20.0 [facility] Comment on above: Performed By: #### P OCGLUC #### [facility] [address] [place] [address] José Luis Kisha Urea nitrogen/Creatinine [Mass ratio] 9.8 mg/mg Normal [facility] Comment on above: Performed By: #### P OCGLUC #### [facility] [address] [address] José Luis Kisha CBC AUTO DIFFon 06-05-2021 BASO # 0.0 103/ul Normal 0.0-0.1 [facility] Comment on above: Performed By: #### P OCGLUC #### [facility] [address] [address] [address] Freda Wayne Basophils/100 WBC (Bld) 0.2 % Normal 0.2-2.0 [facility] Comment on above: Performed By: #### P OCGLUC #### [facility] [address] [address] [address] Freda Wayne EO # 0.0 103/ul Normal 0.0-0.7 [facility] Comment on above: Performed By: #### P OCGLUC #### [facility] [address] [address] [address] Freda Wayne Eosinophils/100 WBC (Bld) 0.4 % Critically low 0.9-7.0 [facility] Comment on above: Performed By: #### P OCGLUC #### [facility] [address] [place] [address] Dr. Freda Wayne Erythrocyte distribution width (RBC) [Ratio] 15.4 % Critically high 11.0-15.0 [facility] Comment on above: Performed By: #### P OCGLUC #### [facility] [address] [place] [address] Dr. Freda Wayne Hematocrit (Bld) [Volume fraction] 35.5 % Critically low 42.0-54.0 [facility] Comment on above: Performed By: #### P OCGLUC #### [facility] [address] [place] [address] Dr. Freda Wayne Hemoglobin (Bld) [Mass/Vol] 11.5 g/dL Critically low 14.0-18.0 [facility] Comment on above: Performed By: #### P OCGLUC #### [facility] [address] [place] [address] Dr. Freda Wayne IG # 0.04 10e3/ul Critically high 0.00-0.03 [facility] Comment on above: Performed By: #### P OCGLUC #### [facility] [address] [place] [address] Dr. Freda Wayne IG % 0.4 % Normal 0.0-0.5 [facility] Comment on above: Performed By: #### P OCGLUC #### [facility] [address] [place] [address] Dr. Freda Wayne LYMPH # 0.7 103/ul Critically low 1.2-3.8 [facility] Comment on above: Performed By: #### P OCGLUC #### [facility] [address] [place] [address] Dr. Freda Wayne Lymphocytes/100 WBC (Bld) 7.4 % Critically low 20.5-60.0 [facility] Comment on above: Performed By: #### P OCGLUC #### [facility] [address] [place] [address] Dr. Freda Wayne MANUAL DIFF REQ NO Normal [facility] Comment on above: Performed By: #### P OCGLUC #### [facility] [address] [address] [address] Freda Wayne MCH (RBC) [Entitic mass] 28.8 pg Normal 25.9-34.0 [facility] Comment on above: Performed By: #### P OCGLUC #### [facility] [address] [place] [address] Dr. Freda Wayne MCHC (RBC) [Mass/Vol] 32.4 g/dL Normal 29.9-35.2 [facility] Comment on above: Performed By: #### P OCGLUC #### [facility] [address] [place] [address] Dr. Freda Wayne MCV (RBC) [Entitic vol] 89.0 fL Normal 80.0-94.0 [facility] Comment on above: Performed By: #### P OCGLUC #### [facility] [address] [place] [address] Dr. Freda Wayne MONO # 1.1 103/ul Critically high 0.3-0.8 [facility] Comment on above: Performed By: #### P OCGLUC #### [facility] [address] [place] [address] Dr. Freda Wayne Monocytes/100 WBC (Bld) 10.5 % Normal 1.7-12.0 [facility] Comment on above: Performed By: #### P OCGLUC #### [facility] [address] [place] [address] Dr. Freda Wayne NEUT # 8.2 103/ul Critically high 1.4-6.5 [facility] Comment on above: Performed By: #### P OCGLUC #### [facility] [address] [place] [address] Dr. Freda Wayne Neutrophils/100 WBC (Bld) 81.1 % Critically high 43.0-75.0 [facility] Comment on above: Performed By: #### P OCGLUC #### [facility] [address] [place] [address] Dr. Freda Wayne Platelet mean volume (Bld) [Entitic vol] 10.4 fL Normal 9.5-13.5 [facility] Comment on above: Performed By: #### P OCGLUC #### [facility] [address] [address] [address] Freda Wayne PLT 262 103/ul Normal 150-450 [facility] Comment on above: Performed By: #### P OCGLUC #### [facility] [address] [address] [address] Freda Wayne RBC 3.99 106/ul Critically low 4.70-6.10 [facility] Comment on above: Performed By: #### P OCGLUC #### [facility] [address] [address] [address] Freda Wayne WBC 10.1 103/ul Normal 4.0-11.0 [facility] Comment on above: Performed By: #### P OCGLUC #### [facility] [address] [place] [address] Dr. Freda Wayne POINT OF CARE GLUCOSEon 05-16 Glucose [Mass/Vol] 208 mg/dL Critically high 74-106 [facility] Comment on above: Performed By: #### P OCGLUC #### [facility] [address] [place] [address] Dr. Freda Wayne Glucose [Mass/Vol] 188 mg/dL Critically high 74-106 [facility] Comment on above: Performed By: #### P OCGLUC #### [facility] [address] [address] [address] Freda Wayne Glucose [Mass/Vol] 143 mg/dL Critically high 74-106 [facility] Comment on above: Performed By: #### P OCGLUC #### [facility] [address] [address] José Luis Beard PROF 14(COMP METB)on 021 Albumin [Mass/Vol] 2.8 g/dL Critically low 3.5-5.0 [facility] Comment on above: Performed By: #### P OCGLUC #### [facility] [address] [place] [address] José Luis Kisha Albumin/Globulin [Mass ratio] 0.8 {ratio} Normal [facility] Comment on above: Performed By: #### P OCGLUC #### [facility] [address] [place] [address] José Luis Kisha ALP [Catalytic activity/Vol] 126 U/L Normal 38-126 [facility] Comment on above: Performed By: #### P OCGLUC #### [facility] [address] [place] [address] José Luis Kisha ALT [Catalytic activity/Vol] 109 U/L Critically high 21-72 [facility] Comment on above: Performed By: #### P OCGLUC #### [facility] [address] [place] [address] José Luis Kisha Anion gap [Moles/Vol] 14.4 mmol/L Normal [facility] Comment on above: Performed By: #### P OCGLUC #### [facility] [address] [place] [address] José Luis Kisha AST [Catalytic activity/Vol] 42 U/L Normal 17-59 [facility] Comment on above: Performed By: #### P OCGLUC #### [facility] [address] [place] [address] José Luis Kisha Bilirubin [Mass/Vol] 0.7 mg/dL Normal 0.2-1.3 [facility] Comment on above: Performed By: #### P OCGLUC #### [facility] [address] [place] [address] José Luis Kisha Calcium [Mass/Vol] 8.7 mg/dL Normal 8.4-10.2 [facility] Comment on above: Performed By: #### P OCGLUC #### [facility] [address] [place] [address] José Luis Kisha Chloride [Moles/Vol] 100 mmol/L Normal 98-107 [facility] Comment on above: Performed By: #### P OCGLUC #### [facility] [address] [place] [address] José Luis Kisha CO2 [Moles/Vol] 26.1 mmol/L Normal 22.0-30.0 [facility] Comment on above: Performed By: #### P OCGLUC #### [facility] [address] [id number] José Luis Kisha Creatinine [Mass/Vol] 1.23 mg/dL Normal 0.66-1.25 [facility] Comment on above: Performed By: #### P OCGLUC #### [facility] [address] [address] José Luis Kisha EGFR-AF CYPRIOT >60 Normal >=60 [facility] Comment on above: Performed By: #### P OCGLUC #### [facility] [address] [address] José Luis Kisha EGFR-NON AF CYPRIOT 58 mL/min/1.73m2 Critically low >=60 [facility] Comment on above: Performed By: #### P OCGLUC #### [facility] [address] [address] José Luis Kisha Globulin (S) [Mass/Vol] 3.5 g/dL Normal [facility] Comment on above: Performed By: #### P OCGLUC #### [facility] [address] [address] José Luis Kisha Glucose [Mass/Vol] 139 mg/dL Critically high 74-106 [facility] Comment on above: Performed By: #### P OCGLUC #### [facility] [address] [address] José Luis Kisha Potassium [Moles/Vol] 3.5 mmol/L Normal 3.4-5.0 [facility] Comment on above: Performed By: #### P OCGLUC #### [facility] [address] [address] José Luis Kisha Protein [Mass/Vol] 6.3 g/dL Normal 6.1-8.2 [facility] Comment on above: Performed By: #### P OCGLUC #### [facility] [address] [address] José Luis Kisha Sodium [Moles/Vol] 137 mmol/L Normal 137-145 [facility] Comment on above: Performed By: #### P OCGLUC #### [facility] [address] [place] [address] José Luis Beard Urea nitrogen [Mass/Vol] 12.0 mg/dL Normal 9.0-20.0 [facility] Comment on above: Performed By: #### P OCGLUC #### [facility] [address] [place] [address] José Luis Beard Urea nitrogen/Creatinine [Mass ratio] 9.8 mg/mg Normal [facility] Comment on above: Performed By: #### P OCGLUC #### [facility] [address] [place] [address] José Luis Beard CBC W MANUAL DIFFon 06-04-20 ATYPICAL LYMPH # Normal [facility] Comment on above: Performed By: #### C BCMAN #### [facility] [address] [place] [address] Dr. Freda Wayne ATYPICAL LYMPH % Normal [facility] Comment on above: Performed By: #### C BCMAN #### [facility] [address] [place] [address] Dr. Freda Wayne BAND # 0.3 103/ul Normal 0.0-0.3 [facility] Comment on above: Performed By: #### C BCMAN #### [facility] [address] [place] [address] Dr. Freda Wayne BAND % 3 % Normal 0-5 [facility] Comment on above: Performed By: #### C NICOLE #### [facility] [address] [place] [address] Dr. Freda Wayne BASOM # 0.00 103/ul Normal 0.00-0.10 [facility] Comment on above: Performed By: #### C BCMAN #### [facility] [address] [place] [address] Dr. Freda Wayne BASOM % 0.0 % Critically low 0.2-2.0 [facility] Comment on above: Performed By: #### C BCMAN #### [facility] [address] [place] [address] Dr. Freda Wayne BLAST # Normal [facility] Comment on above: Performed By: #### C NICOLE #### [facility] [address] [place] [address] Dr. Freda Wayne BLAST % Normal [facility] Comment on above: Performed By: #### C NICOLE #### [facility] [address] [place] [address] Dr. Freda Wayne CORRECTED WBC Normal 4.0-11.0 [facility] Comment on above: Performed By: #### C NICOLE #### [facility] [address] [place] [address] Dr. Freda Wayne EOS # 0.00 103/ul Normal 0.00-0.70 [facility] Comment on above: Performed By: #### C NICOLE #### [facility] [address] [place] [address] Dr. Freda Wayne EOS% 0.0 % Critically low 0.9-7.0 [facility] Comment on above: Performed By: #### C NICOLE #### [facility] [address] [place] [address] Dr. Freda Wayne HCT 35.4 % Critically low 42.0-54.0 [facility] Comment on above: Performed By: #### C NICOLE #### [facility] [address] [place] [address] Dr. Freda Wayne HGB 11.3 g/dl Critically low 14.0-18.0 [facility] Comment on above: Performed By: #### C NICOLE #### [facility] [address] [place] [address] Dr. Freda Wayne LYMPHM # 0.65 103/ul Critically low 1.20-3.80 [facility] Comment on above: Performed By: #### C NICOLE #### [facility] [address] [place] [address] Dr. Freda Wayne LYMPHM% 6.0 % Critically low 20.5-60.0 [facility] Comment on above: Performed By: #### C NICOLE #### [facility] [address] [place] [address] Dr. Freda Wayne MCH 28.8 pg Normal 25.9-34.0 [facility] Comment on above: Performed By: #### C NICOLE #### [facility] [address] [place] [address] Dr. Freda Wayne MCHC 31.9 g/dl Normal 29.9-35.2 [facility] Comment on above: Performed By: #### C NICOLE #### [facility] [address] [place] [address] Dr. Freda Wayne MCV 90.3 fL Normal 80.0-94.0 [facility] Comment on above: Performed By: #### C BCJOE #### [facility] [address] [place] [address] Dr. Freda Wayne METAMYELOCYTE # Normal [facility] Comment on above: Performed By: #### C NICOLE #### [facility] [address] [place] [address] Dr. Freda Wayne METAMYELOCYTE % Normal [facility] Comment on above: Performed By: #### C NICOLE #### [facility] [address] [place] [address] Dr. Freda Wayne MONOM# 0.76 103/ul Normal 0.30-0.80 [facility] Comment on above: Performed By: #### C NICOLE #### [facility] [address] [place] [address] Dr. Freda Wayne MONOM% 7.0 % Normal 1.7-12.0 [facility] Comment on above: Performed By: #### C NICOLE #### [facility] [address] [place] [address] Dr. Freda Wayne MPV 10.2 fL Normal 9.5-13.5 [facility] Comment on above: Performed By: #### C NICOLE #### [facility] [address] [place] [address] Dr. Freda Wayne MYELOCYTE # Normal [facility] Comment on above: Performed By: #### C NICOLE #### [facility] [address] [place] [address] Dr. Freda Wayne MYELOCYTE % Normal [facility] Comment on above: Performed By: #### C NICOLE #### [facility] [address] [address] [address] Freda Wayne [facility] Normal [facility] Comment on above: Performed By: #### C NICOLE #### [facility] [address] [address] [address] Freda Wayne PLT 275 103/ul Normal 150-450 [facility] Comment on above: Performed By: #### C NICOLE #### [facility] [address] [address] [address] Freda Wayne RBC 3.92 106/ul Critically low 4.70-6.10 [facility] Comment on above: Performed By: #### Slime RIVERA #### [facility] [address] [place] [address] Dr. Freda Wayne RDW 15.5 % Critically high 11.0-15.0 [facility] Comment on above: Performed By: #### Slime RIVERA #### [facility] [address] [place] [address] Dr. Freda Wayne SEG # 9.16 103/ul Critically high 1.40-6.50 [facility] Comment on above: Performed By: #### Slime RIVERA #### [facility] [address] [place] [address] Dr. Freda Wayne SEG % 84.0 % Critically high 43.0-75.0 [facility] Comment on above: Performed By: #### Slime RIVERA #### [facility] [address] [place] [address] Dr. Freda Wayne WBC 10.9 103/ul Normal 4.0-11.0 [facility] Comment on above: Performed By: #### Slime RIVERA #### [facility] [address] [place] [address] Dr. Freda Wayne NM HEPATOBILIARY SCANon 05-16 [...] by: CINDI RYAN Date: 2021-06-04 00:06 Normal [facility] POINT OF CARE GLUCOSEon 05-16 Glucose [Mass/Vol] 219 mg/dL Critically high 74-106 [facility] Comment on above: Performed By: #### P OCGLUC #### [facility] [address] [place] [address] José Luis Beard Glucose [Mass/Vol] 134 mg/dL Critically high 74-106 [facility] Comment on above: Performed By: #### P OCGLUC #### [facility] [address] [place] [address] Dr. Freda Wayne Glucose [Mass/Vol] 196 mg/dL Critically high 74-106 [facility] Comment on above: Performed By: #### P OCGLUC #### [facility] [address] [place] [address] José Luis Beard PROF 14(COMP METB)on 021 Albumin [Mass/Vol] 2.8 g/dL Critically low 3.5-5.0 [facility] Comment on above: Performed By: #### C MP #### [facility] [address] [place] [address] Dr. Freda Wayne Albumin/Globulin [Mass ratio] 0.8 {ratio} Normal [facility] Comment on above: Performed By: #### C MP #### [facility] [address] [place] [address] Dr. Freda Wayne ALP [Catalytic activity/Vol] 131 U/L Critically high 38-126 [facility] Comment on above: Performed By: #### C MP #### [facility] [address] [place] [address] Dr. Freda Wayne ALT [Catalytic activity/Vol] 153 U/L Critically high 21-72 [facility] Comment on above: Performed By: #### C MP #### [facility] [address] [address] [address] Freda Wayne Anion gap [Moles/Vol] 12.6 mmol/L Normal [facility] Comment on above: Performed By: #### C MP #### [facility] [address] [address] [address] Freda Wayne AST [Catalytic activity/Vol] 79 U/L Critically high 17-59 [facility] Comment on above: Performed By: #### C MP #### [facility] [address] [place] [address] Dr. Freda Wayne Bilirubin [Mass/Vol] 0.7 mg/dL Normal 0.2-1.3 [facility] Comment on above: Performed By: #### C MP #### [facility] [address] [place] [address] Dr. Freda Wayne Calcium [Mass/Vol] 8.6 mg/dL Normal 8.4-10.2 [facility] Comment on above: Performed By: #### C MP #### [facility] [address] [place] [address] Dr. Freda Wayne Chloride [Moles/Vol] 104 mmol/L Normal 98-107 [facility] Comment on above: Performed By: #### C MP #### [facility] [address] [address] [address] Freda Wayne CO2 [Moles/Vol] 25.2 mmol/L Normal 22.0-30.0 [facility] Comment on above: Performed By: #### C MP #### [facility] [address] [address] [address] Freda Wayne Creatinine [Mass/Vol] 1.30 mg/dL Critically high 0.66-1.25 [facility] Comment on above: Performed By: #### C MP #### [facility] [address] [address] [address] Freda Wayne EGFR-AF CYPRIOT >60 Normal >=60 [facility] Comment on above: Performed By: #### C MP #### [facility] [address] [address] [address] Freda Wayne EGFR-NON AF CYPRIOT 54 mL/min/1.73m2 Critically low >=60 [facility] Comment on above: Performed By: #### C MP #### [facility] [address] [address] [address] Freda Wayne Globulin (S) [Mass/Vol] 3.3 g/dL Normal [facility] Comment on above: Performed By: #### C MP #### [facility] [address] [address] [address] Freda Wayne Glucose [Mass/Vol] 141 mg/dL Critically high 74-106 [facility] Comment on above: Performed By: #### C MP #### [facility] [address] [address] [address] Freda Wayne Potassium [Moles/Vol] 3.8 mmol/L Normal 3.4-5.0 [facility] Comment on above: Performed By: #### C MP #### [facility] [address] [address] [address] Freda Wayne Protein [Mass/Vol] 6.1 g/dL Normal 6.1-8.2 [facility] Comment on above: Performed By: #### C MP #### [facility] [address] [address] [address] Freda Wayne Sodium [Moles/Vol] 138 mmol/L Normal 137-145 [facility] Comment on above: Performed By: #### C MP #### [facility] [address] [address] [address] Freda Wayne Urea nitrogen [Mass/Vol] 13.0 mg/dL Normal 9.0-20.0 [facility] Comment on above: Performed By: #### C MP #### [facility] [address] [address] [address] Freda Wayne Urea nitrogen/Creatinine [Mass ratio] 10.0 mg/mg Normal [facility] Comment on above: Performed By: #### C MP #### [facility] [address] [place] [address] Dr. Freda Wayne BLOOD CULTURE ID PANELon A. baumannii Not detected [facility] Comment on above: Performed By: #### B TIAGO #### [facility] [address] [place] [address] Dr. Freda Wayne BCID CONTROLS PASSED [facility] Comment on above: Performed By: #### B TIAGO #### [facility] [address] [place] [address] Dr. Freda TATEDBTHD BLOOD CULTURE BOTTLE INFORMATION [facility] Comment on above: Performed By: #### B TIAGO #### [facility] [address] [place] [address] Dr. Freda Wayne BCIDHD1 ANTIMICROBIAL RESIST ANCE GENES [facility] Comment on above: Performed By: #### B TIAGO #### [facility] [address] [place] [address] Dr. Freda TATEDHD2 SEE BELOW [facility] Comment on above: Result Comment: KPC- carbapenem resistance gene, mecA- methecillin resistance gene, van A/B- vancomycin resistance gene Note: Antimicrobial resitance can occur via multiple mechanisms. A Not Detected result for the [employer] antomicrobial resistance gene assays does not indicate antimicrobial susceptibility. Subculturing is required for specis identificationand susceptibility testing of isolates. Performed By: #### B TIAGO #### [facility] [address] [place] [address] Dr. Freda TATEDHD3 Positive [facility] Comment on above: Performed By: #### B TIAGO #### [facility] [address] [place] [address] Dr. Freda TATEDHD4 Negative [facility] Comment on above: Performed By: #### B TIAGO #### [facility] [address] [place] [address] Dr. Freda Wayne BCIDHD5 YEAST [facility] Comment on above: Performed By: #### B TIAGO #### [facility] [address] [place] [address] Dr. Freda Wayne BCIDHD6 SEE BELOW Normal [facility] Comment on above: Result Comment: Note : All genus and species BCID [employer] results will be verified post subculturing via Maldi-Tof MS testing methodology. Performed By: #### B TIAGO #### [facility] [address] [place] [address] Dr. Freda Wayne Bottle Set: Set 1 Normal [facility] Comment on above: Performed By: #### B TIAGO #### [facility] [address] [place] [address] Dr. Freda Wayne Bottle: Aerobic Normal [facility] Comment on above: Performed By: #### B TIAGO #### [facility] [address] [place] [address] Dr. Freda Wayne Yarely albicans Not detected Normal [facility] Comment on above: Performed By: #### B TIAGO #### [facility] [address] [place] [address] Dr. Freda Wayne Yarely glabrata Not detected Normal [facility] Comment on above: Performed By: #### B TIAGO #### [facility] [address] [place] [address] Dr. Freda Wayne Yarely Krusei Not detected Normal [facility] Comment on above: Performed By: #### B TIAGO #### [facility] [address] [place] [address] Dr. Freda Wayne Yarely Parapsilosis Not detected Normal [facility] Comment on above: Performed By: #### B TIAGO #### [facility] [address] [place] [address] Dr. Freda Wayne Yarely Tropicalis Not detected Normal [facility] Comment on above: Performed By: #### B TIAGO #### [facility] [address] [place] [address] Dr. Freda Wayne E. Cloacae complex Not detected Normal [facility] Comment on above: Performed By: #### B TIAGO #### [facility] [address] [place] [address] Dr. Freda Wayen Enterobacteriaceae Detected Critically abnormal [facility] Comment on above: Performed By: #### B TIAGO #### [facility] [address] [place] [address] Dr. Freda Wayne Enterococcus Not detected Normal [facility] Comment on above: Performed By: #### B TIAGO #### [facility] [address] [place] [address] Dr. Freda Wayne Escheria coli Not detected Normal [facility] Comment on above: Performed By: #### B TIAGO #### [facility] [address] [place] [address] Dr. Freda Wayne K. oxytoca Not detected Normal [facility] Comment on above: Performed By: #### B TIAGO #### [facility] [address] [place] [address] Dr. Freda Wayne K. pneumoniae Detected Critically abnormal [facility] Comment on above: Performed By: #### B TIAGO #### [facility] [address] [place] [address] Dr. Freda Wayne KPC Resistant Gene Not detected Normal [facility] Comment on above: Performed By: #### B TIAGO #### [facility] [address] [place] [address] Dr. Freda Wayne List. monocytogenes Not detected Normal [facility] Comment on above: Performed By: #### B TIAGO #### [facility] [address] [place] [address] Dr. Freda Wayne mecA Resistant Gene Not Applicable Normal [facility] Comment on above: Performed By: #### B TIAGO #### [facility] [address] [place] [address] Dr. Freda Wayne Proteus Not detected Normal [facility] Comment on above: Performed By: #### B TIAGO #### [facility] [address] [place] [address] Dr. Freda Wayne Pseud. aeruginosa Not detected Normal [facility] Comment on above: Performed By: #### B TIAGO #### [facility] [address] [place] [address] Dr. Freda Wayne Seratia marcescens Not detected Normal [facility] Comment on above: Performed By: #### B TIAGO #### [facility] [address] [place] [address] Dr. Freda Wayne Site: left AC Normal [facility] Comment on above: Performed By: #### B TIAGO #### [facility] [address] [place] [address] Dr. Freda Wayne Staph. aureus Not detected Normal [facility] Comment on above: Performed By: #### B TIAGO #### [facility] [address] [place] [address] Dr. Freda Wayne Staphylococcus Not detected Normal [facility] Comment on above: Performed By: #### B TIAGO #### [facility] [address] [place] [address] Dr. Freda Wayne Strep. agalactiae Not detected Normal [facility] Comment on above: Performed By: #### B TIAGO #### [facility] [address] [place] [address] Dr. Freda Wayne Strep. pneumoniae Not detected Normal [facility] Comment on above: Performed By: #### B TIAGO #### [facility] [address] [place] [address] Dr. Freda Wayne Strep. pyogenes Not detected Normal [facility] Comment on above: Performed By: #### B TIAGO #### [facility] [address] [place] [address] Dr. Freda Wayne Streptococcus Not detected Normal [facility] Comment on above: Performed By: #### B TIAGO #### [facility] [address] [place] [address] Dr. Freda Wayne Genevieve/B Resist. Gene Not Applicable Normal [facility] Comment on above: Performed By: #### B TIAGO #### [facility] [address] [place] [address] Dr. Freda Wayne CBC W MANUAL DIFFon 1220-20 21 ATYPICAL LYMPH # Normal [facility] Comment on above: Performed By: #### P OCGLUC #### [facility] [address] [place] [address] José Luis Beard ATYPICAL LYMPH % Normal [facility] Comment on above: Performed By: #### P OCGLUC #### [facility] [address] [place] [address] José Luis Kisha BAND # Normal 0.0-0.3 [facility] Comment on above: Performed By: #### P OCGLUC #### [facility] [address] [place] [address] José Luis Kisha BAND % Normal 0-5 [facility] Comment on above: Performed By: #### P OCGLUC #### [facility] [address] [place] [address] José Luis Kisha BASOM # 0.00 103/ul Normal 0.00-0.10 [facility] Comment on above: Performed By: #### P OCGLUC #### [facility] [address] [place] [address] José Luis Kisha BASOM % 0.0 % Critically low 0.2-2.0 [facility] Comment on above: Performed By: #### P OCGLUC #### [facility] [address] [place] [address] José Luis Kisha BLAST # Normal [facility] Comment on above: Performed By: #### P OCGLUC #### [facility] [address] [place] [address] José Luis Kisha BLAST % Normal [facility] Comment on above: Performed By: #### P OCGLUC #### [facility] [address] [place] [address] José Luis Kisha CORRECTED WBC Normal 4.0-11.0 [facility] Comment on above: Performed By: #### P OCGLUC #### [facility] [address] [place] [address] José Luis Kisha EOS # 0.00 103/ul Normal 0.00-0.70 [facility] Comment on above: Performed By: #### P OCGLUC #### [facility] [address] [place] [address] José Luis Kisha EOS% 0.0 % Critically low 0.9-7.0 [facility] Comment on above: Performed By: #### P OCGLUC #### [facility] [address] [place] [address] José Luis Beard HCT 41.0 % Critically low 42.0-54.0 [facility] Comment on above: Performed By: #### P OCGLUC #### [facility] [address] [address] José Luis Beard HGB 13.0 g/dl Critically low 14.0-18.0 [facility] Comment on above: Performed By: #### P OCGLUC #### [facility] [address] [address] José Luis Beard LYMPHM # 0.18 103/ul Critically low 1.20-3.80 [facility] Comment on above: Performed By: #### P OCGLUC #### [facility] [address] [place] [address] José Luis Beard LYMPHM% 1.0 % Critically low 20.5-60.0 [facility] Comment on above: Performed By: #### P OCGLUC #### [facility] [address] [place] [address] José Luis Beard MCH 28.6 pg Normal 25.9-34.0 [facility] Comment on above: Performed By: #### P OCGLUC #### [facility] [address] [place] [address] José Luis Beard MCHC 31.7 g/dl Normal 29.9-35.2 [facility] Comment on above: Performed By: #### P OCGLUC #### [facility] [address] [place] [address] José Luis Beard MCV 90.1 fL Normal 80.0-94.0 [facility] Comment on above: Performed By: #### P OCGLUC #### [facility] [address] [place] [address] José Luisdinh Mathuren METAMYELOCYTE # Normal [facility] Comment on above: Performed By: #### P OCGLUC #### [facility] [address] [place] [address] José Luis Mathuren METAMYELOCYTE % Normal [facility] Comment on above: Performed By: #### P OCGLUC #### [facility] [address] [address] José Luis Beard MONOM# 0.55 103/ul Normal 0.30-0.80 [facility] Comment on above: Performed By: #### P OCGLUC #### [facility] [address] [place] [address] José Luis Beard MONOM% 3.0 % Normal 1.7-12.0 [facility] Comment on above: Performed By: #### P OCGLUC #### [facility] [address] [address] José Luis Beard MPV 10.1 fL Normal 9.5-13.5 [facility] Comment on above: Performed By: #### P OCGLUC #### [facility] [address] [place] [address] José Luis Beard MYELOCYTE # Normal [facility] Comment on above: Performed By: #### P OCGLUC #### [facility] [address] [place] [address] José Luis Beard MYELOCYTE % Normal [facility] Comment on above: Performed By: #### P OCGLUC #### [facility] [address] [place] [address] José Luis Beard NRBC Normal [facility] Comment on above: Performed By: #### P OCGLUC #### [facility] [address] [place] [address] José Luis Beard PLT 374 103/ul Normal 150-450 [facility] Comment on above: Performed By: #### P OCGLUC #### [facility] [address] [place] [address] José Luis Beard RBC 4.55 106/ul Critically low 4.70-6.10 [facility] Comment on above: Performed By: #### P OCGLUC #### [facility] [address] [place] [address] José Luis Beard RDW 15.6 % Critically high 11.0-15.0 [facility] Comment on above: Performed By: #### P OCGLUC #### [facility] [address] [place] [address] José Luis Kisha SEG # 17.57 103/ul Critically high 1.40-6.50 [facility] Comment on above: Performed By: #### P OCGLUC #### [facility] [address] [id number] José Luis Beard SEG % 96.0 % Critically high 43.0-75.0 [facility] Comment on above: Performed By: #### P OCGLUC #### [facility] [address] [address] José Luis Beard WBC 18.3 103/ul Critically high 4.0-11.0 [facility] Comment on above: Performed By: #### P OCGLUC #### [facility] [address] [id number] [address] ABD/PELV W CONon 06-03-20 CT ABD/PELV W CON EXAMINATION: CT ABD/ [...] CINDI SOMMER Date: 2021-06-03 14:15 Normal [facility] CULTURE BLOODon 06-03-2021 Microscopic examination of blood, culture Culture Observations: NO GROWTH AT 5 DAYS. Normal [facility] Comment on above: Performed By: #### B LDCX2 #### [facility] [address] [place], [place] [address] Dr. Freda Wayne Covid-19 PCR ([facility])on 05-16 SARS-CoV-2 (COVID-19) RNA SHRUTI+probe Ql (Unsp spec) Not detected Normal NOT DETECTED [facility] Comment on above: Result Comment: When diagnostic testing is negative, the possibility of a false negative should be considered in the context of a patient's recent exposures and the presence of clinical signs and symptoms consistent with SARS-CoV-2. This test is not yet approved or cleared by the [place] Food and Drug Administration (FDA). This test was developed by [employer], [place], [place]. The performance characteristics of this test were validated by [facility]. The results are not intended to be used as the sole means for clinical diagnosis or patient management decisions. [facility] is authorized under Clinical Laboratory Improvement Amendments [...] for this test is supported by the [employer] of Health and Human Service's declaration that [...] used). Performed By: #### C BCMAN #### [facility] [address] [place], [place] [address] Dr. Freda Wayne ER URINE PROFILEon Bilirubin Ql (U) Negative Normal NEGATIVE [facility] Comment on above: Performed By: #### P OCGLUC #### [facility] [address] [address] José Luis Kisha Clarity (U) CLEAR Normal CLEAR [facility] Comment on above: Performed By: #### P OCGLUC #### [facility] [address] [address] José Luis Kisha Color (U) YELLOW Normal YELLOW [facility] Comment on above: Performed By: #### P OCGLUC #### [facility] [address] [place] [address] José Luis Kisha ERUAHD A micrscopic examina tion will be performed if indicated. Normal [facility] Comment on above: Performed By: #### P OCGLUC #### [facility] [address] [place] [address] José Luis Kisha Glucose Ql (U) 100 mg/dl Abnormal NEGATIVE [facility] Comment on above: Performed By: #### P OCGLUC #### [facility] [address] [place] [address] José Luis Kisha Hemoglobin Ql (U) Negative Normal NEGATIVE [facility] Comment on above: Performed By: #### P OCGLUC #### [facility] [address] [place] [address] José Luis Kisha Ketones Ql (U) Negative Normal NEGATIVE [facility] Comment on above: Performed By: #### P OCGLUC #### [facility] [address] [place] [address] José Luis Kisha LEUKOCYTES Negative Normal NEGATIVE [facility] Comment on above: Performed By: #### P OCGLUC #### [facility] [address] [place] [address] José Luis Kisha Nitrite Ql (U) Negative Normal NEGATIVE [facility] Comment on above: Performed By: #### P OCGLUC #### [facility] [address] [place] [address] José Luis Kisha pH (U) 6.0 [pH] Normal 5-9 [facility] Comment on above: Performed By: #### P OCGLUC #### [facility] [address] [place] [address] José Luis Beard Protein (U) [Mass/Vol] 30 mg/dL Abnormal NEGAT CYNTHIA/ TRACE [facility] Comment on above: Performed By: #### P OCGLUC #### [facility] [address] [place] [address] José Luis Beard SPEC GRAVITY 1.020 Normal 1.005-<=1. 025 [facility] Comment on above: Performed By: #### P OCGLUC #### [facility] [address] [place] [address] José Luis Beard UR MICRO IND INDICATED Normal [facility] Comment on above: Performed By: #### P OCGLUC #### [facility] [address] [place] [address] José Luis Beard Urobilinogen Qn (U) 1.0 {Bassem'U}/dL Normal 0.2 - 1. 0 [facility] Comment on above: Performed By: #### P OCGLUC #### [facility] [address] [place] [address] José Luis Beard LACTATE/LACTIC ACIDon 2020 Lactate [Moles/Vol] 2.0 mmol/L Normal 0.7-2.0 [facility] Comment on above: Performed By: #### P OCGLUC #### [facility] [address] [place] [address] Dr. Freda Wayne LIPASEon 06-03-2021 Lipase [Catalytic activity/Vol] 207.0 U/L Normal 23.0-300.0 [facility] Comment on above: Performed By: #### P OCGLUC #### [facility] [address] [place] [address] Dr. Freda Wayne POINT OF CARE GLUCOSEon 05-16 Glucose [Mass/Vol] 107 mg/dL Critically high 74-106 [facility] Comment on above: Performed By: #### P OCGLUC #### [facility] [address] [place] [address] José Luis Beard PROF 14(COMP METB)on Albumin [Mass/Vol] 3.9 g/dL Normal 3.5-5.0 [facility] Comment on above: Performed By: #### P OCGLUC #### [facility] [address] [address] [address] Freda Wayne Albumin/Globulin [Mass ratio] 1.1 {ratio} Normal [facility] Comment on above: Performed By: #### P OCGLUC #### [facility] [address] [address] [address] Freda Wayne ALP [Catalytic activity/Vol] 181 U/L Critically high 38-126 [facility] Comment on above: Performed By: #### P OCGLUC #### [facility] [address] [address] [address] Freda Wayne ALT [Catalytic activity/Vol] 196 U/L Critically high 21-72 [facility] Comment on above: Performed By: #### P OCGLUC #### [facility] [address] [address] [address] Freda Wayne Anion gap [Moles/Vol] 15.4 mmol/L Normal [facility] Comment on above: Performed By: #### P OCGLUC #### [facility] [address] [address] [address] Freda Wayne AST [Catalytic activity/Vol] 217 U/L Critically high 17-59 [facility] Comment on above: Performed By: #### P OCGLUC #### [facility] [address] [address] [address] Freda Wayne Bilirubin [Mass/Vol] 1.1 mg/dL Normal 0.2-1.3 [facility] Comment on above: Performed By: #### P OCGLUC #### [facility] [address] [address] [address] Freda Wayne Calcium [Mass/Vol] 9.7 mg/dL Normal 8.4-10.2 [facility] Comment on above: Performed By: #### P OCGLUC #### [facility] [address] [address] [address] Freda Wayne Chloride [Moles/Vol] 101 mmol/L Normal 98-107 [facility] Comment on above: Performed By: #### P OCGLUC #### [facility] [address] [address] [address] Freda Wayne CO2 [Moles/Vol] 24.4 mmol/L Normal 22.0-30.0 [facility] Comment on above: Performed By: #### P OCGLUC #### [facility] [address] [address] [address] Freda Wayne Creatinine [Mass/Vol] 1.16 mg/dL Normal 0.66-1.25 [facility] Comment on above: Performed By: #### P OCGLUC #### [facility] [address] [address] [address] Freda Wayne EGFR-AF CYPRIOT >60 Normal >=60 [facility] Comment on above: Performed By: #### P OCGLUC #### [facility] [address] [address] [address] Freda Wayne EGFR-NON AF CYPRIOT >60 Normal >=60 [facility] Comment on above: Performed By: #### P OCGLUC #### [facility] [address] [address] [address] Freda Wayne Globulin (S) [Mass/Vol] 3.6 g/dL Normal [facility] Comment on above: Performed By: #### P OCGLUC #### [facility] [address] [address] [address] Freda Wayne Glucose [Mass/Vol] 213 mg/dL Critically high 74-106 [facility] Comment on above: Performed By: #### P OCGLUC #### [facility] [address] [address] [address] Freda Wayne Potassium [Moles/Vol] 3.8 mmol/L Normal 3.4-5.0 [facility] Comment on above: Performed By: #### P OCGLUC #### [facility] [address] [address] [address] Freda Wayne Protein [Mass/Vol] 7.5 g/dL Normal 6.1-8.2 [facility] Comment on above: Performed By: #### P OCGLUC #### [facility] [address] [place] [address] Dr. Freda Wayne Sodium [Moles/Vol] 137 mmol/L Normal 137-145 [facility] Comment on above: Performed By: #### P OCGLUC #### [facility] [address] [place] [address] Dr. Freda Wayne Urea nitrogen [Mass/Vol] 16.0 mg/dL Normal 9.0-20.0 [facility] Comment on above: Performed By: #### P OCGLUC #### [facility] [address] [place] [address] Dr. Freda Wayne Urea nitrogen/Creatinine [Mass ratio] 13.8 mg/mg Normal [facility] Comment on above: Performed By: #### P OCGLUC #### [facility] [address] [place] [address] Dr. Freda Wayne PROTIMEon 06-03-2021 INR Coag (PPP) [Relative time] 1.05 {INR} Normal [facility] Comment on above: Performed By: #### P T, PTT #### [facility] [address] [place] [address] Dr. Freda Wayne INR GUIDELINES SEE BELOW Normal [facility] Comment on above: Result Comment: KAYLA RED INR: 2.0 - 3.0 CONDITIONS NOT LISTED BELOW 2.5 - 3.5 FOR PROSTHETIC HEART VALVE REPLACEMENT 2.5 - 3.5 RECURRENT THROMBOSIS Performed By: #### P T, PTT #### [facility] [address] [place] [address] Dr. Freda Wayne PT Coag (PPP) [Time] 11.3 s Normal 9.0-11.6 [facility] Comment on above: Performed By: #### P T, PTT #### [facility] [address] [place] [address] Dr. Freda Wayne PTTon 06-03-2021 aPTT Coag (Bld) [Time] 28.2 s Normal 22.3-36.2 [facility] Comment on above: Performed By: #### P T, PTT #### [facility] [address] [place] [address] Dr. Freda Wayne TROPONIN, HIGH SENSITIVITYon 06-03-2021 HSTROP 10.8 pg/mL Normal 4.0-42.2 [facility] Comment on above: Result Comment: CUT- OFF POINTS HAVE BEEN ESTABLISHED BASED ON THE FOURTH UNIVERSAL DEFINITIONS OF MYOCARDIAL INFARCTION. THE UPPER REFERENCE LIMIT (URL) OF TROPONIN, DEFINED THE 99TH PERCENTILE OF cTnI DISTRIBUTION IN A REFERENCE POPULATION, HAS BEEN CONFIRMED THE DECISION THRESHOLD FOR MD DIAGNOSIS. Performed By: #### P OCGLUC #### [facility] [address] [place] [address] Dr. Freda Wayne URINE MICROSCOPIC ONLYon BACTERIA NONE SEEN Normal NONE SEEN [facility] Comment on above: Performed By: #### P OCGLUC #### [facility] [address] [place] [address] José Luis Kisha Bacteria identified Cx Nom (U) NOT INDICATED Normal [facility] Comment on above: Performed By: #### P OCGLUC #### [facility] [address] [place] [address] José Luis Kisha CAST NONE SEEN Normal NONE SEEN [facility] Comment on above: Performed By: #### P OCGLUC #### [facility] [address] [place] [address] José Luis Kisha Crystals LM Nom (Urine sed) NONE SEEN Normal NONE SEEN [facility] Comment on above: Performed By: #### P OCGLUC #### [facility] [address] [place] [address] José Luis Kisha Epithelial cells LM Ql (Urine sed) RARE Normal NONE SEEN /RARE [facility] Comment on above: Performed By: #### P OCGLUC #### [facility] [address] [place] [address] José Luis Kisha MUCOUS TRACE Abnormal NONE SEEN [facility] Comment on above: Performed By: #### P OCGLUC #### [facility] [address] [place] [address] José Luis Kisha RBC 0-2 Normal 0-2 [facility] Comment on above: Performed By: #### P OCGLUC #### [facility] [address] [place], [place] [id number] José Luis Beard WBC 0-2 Abnormal NONE SEEN [facility] Comment on above: Performed By: #### P OCGLUC #### [facility] [address], [place] [id number] [address] US SINGLE QUAD RT UPPERon US SINGLE [...] by: CINDI SOMMER Date: 2021-06-03 09:27 Normal [facility] XR CHEST 1 Von 06-03-2021 XR CHEST [...] by: CINDI SOMMER Date: 2021-06-03 09:56 Normal [facility] Clinic Note - Heme Onc Sched nahid 05-22-2021 Clinic Note - Heme Onc Scheduling Retrieve Patient Instructions: Patient Instructions: Patient Instructions: RetrievePatient Instructions COMMUNICATION ORDERS NOTES: Communication Orders NotesPer scheduling note on appointment wifes patient wants apt on 08/26 End of Visit Documentation: Clinic Location/Phone Number: Clinic Location/Phone Number: [place] [phone] End Of Visit MU Report Item: Visit Summary given or mailed to patientyes Mailed Appointments Electronic Signatures: Candice Shirley (PT ACCT REP) (Signed 22-May-2021 10:02) Authored: Retrieve Patient Instructions, COMMUNICATION ORDERS NOTES, End of Visit Documentation Last Updated: 22-May-2021 10:02 by Candice Shirley (PT ACCT REP) Normal [facility] Note - Heme Onc-Follo w Up Visiton 05-20-2021 Clinic Note - Heme Onc-Follow Up Visit Patient Visit Information: Visit Type: Follow Up Visit History of Present Illness: ID Statement: YUSEF CAR is a 71 year old Male Chief Complaint: Duodenal neuroendocrine tumor Interval History: 70 years old gentleman from [place], [place] who has been referred to me from [facility]. The patient complained of acid reflux [...] 6. No (more content not included)... Normal [facility] Note - Intakeon 05-20 Clinic Note [...] 3 Weights & HeightsDate: Weight/Scale Type:Height: 04-Feb-2021 09:71291 kg / standing pseei659.8 cm 07-Jan-2021 13:28736 kg / standing .8 cm 19-Dec-2020 13:23544 kg / standing ukggr466.8 cm SpO2 (%)98 % SpO2 Patient Onroom [...] Nutrition Last Updated: 20-May-2021 12:55 by Edith Ruvalcaba (SARAH) Normal [facility] Laboratory - Chemistry and C hemistry - challengeon 05-01-2021 Glucose [Mass/Vol] 132 mg/dL above high threshold 74 - 99 [facility] [place] [facility] [address] DO Work Phone: No Panel Informationon 05-01 [facility]astroen terology-[facility] [place] [facility] 450 DO Work Phone: [email or web address]?={[email or web address] [id number]} [facility]astroen terology-[facility] [place] [facility] 450 DO Work [...] make patient management decisions.Fact sheet for providers: https://www.fda.gov/media/719480/downloadFact sheet for patients: https://www.fda.gov/media/193346/downloadThis test has received FDA Emergency Use Authorization (EUA) and has been verified by [facility] ([facility]). This test is only authorized for the duration of time that circumstances exist to justify the authorization of the emergency use of in vitro diagnostic tests for the detection of SARS-CoV-2 virus and/or diagnosis of COVID-19 infection under section 564(b)(1) of the Act, 21 U.S.C. 360bbb-3(b)(1), unless the authorization is terminated or revoked sooner. [facility] is certified under CLIA-88 as qualified to perform high complexity testing. Testing is performed in the [facility] laboratories located at [address] [place] [address]. Provider Communicationon Provider Communication Dear Dr. Steele, [...] should questions arise Sincerely, Irwin Cespedes MD, MBS Clinical Wage And Hour Investigator [facility] Gastroenterology [facility] [address] [place] [address] Patient Care Team Care Team MemberRoleSpecialtyOffice Number Cedric HERNANDEZ, Vanessa [facility] Care ProviderNorthside Hospital [phone] Active Problems Problems BPH with obstruction/lower urinary [...] Feb 05 2021 2:42PM EST (Author) [facility] - Chemistry and C hemistry - challengeon 01-23-2021 Glucose [Mass/Vol] 106 mg/dL above high threshold 74 - 99 [facility] Work Phone: No Panel Informationon 01-23 MG-Gastroen terology-We [facility] 450 DO Work Phone: [email or web address]?={F [email or web address]} [facility]en [facility]ology[facility] [place] [facility] 450 DO Work Phone: [facility]astroen terology[facility] [place] [facility] 450 DO Work Phone: Complete Blood Count + Diffe rentialon 01-11-2021 Basophils/100 WBC (Bld) 0.4 % 0.0 - 2.0 U [facility] Work Phone: Erythrocyte distribution width (RBC) [Ratio] 15.6 % above high threshold See Below [facility] Work Phone: [phone] Comment on above: Reference Range: 11. 5 - 14.5 Hematocrit (Bld) [Volume fraction] 40.9 % below low threshold See Below [facility] Work Phone: [phone] Comment on above: Reference Range: 41. 0 - 52.0 Hemoglobin (Bld) [Mass/Vol] 12.9 g/dL below low threshold See Below [facility] Work Phone: Comment on above: Reference Range: 13. 5 - 17.5 Lymphocytes/100 WBC (Bld) 16.1 % See Below [facility] Work Phone: [phone] Comment on above: Reference Range: 13. 0 - 44.0 MCHC (RBC) [Mass/Vol] 31.5 g/dL below low threshold See Below [facility] Work Phone: Comment on above: Reference Range: 32. 0 - 36.0 MCV (RBC) [Entitic vol] 92 fL 80 - 100 U [facility] Work Phone: Monocytes/100 WBC (Bld) 7.4 % 2.0 - 10.0 U [facility] Work Phone: [phone] Neutrophils/100 WBC (Bld) 73.8 % See Below [facility] Work Phone: Comment on above: Reference Range: 40. 0 - 80.0 Platelets (Bld) [#/Vol] 360 10*3/uL 150 - 450 [facility] Work Phone: RBC (Bld) [#/Vol] 4.45 {x10E12/L} below low threshold See Below [facility] Work Phone: Comment on above: Reference Range: 4.5 0 - 5.90 WBC (Bld) [#/Vol] 7.7 10*3/uL 4.4 - 11.3 [facility] Work Phone: Complete Blood Count + Differential 0.03 {x10E9/L} See Below [facility] Work Phone: Comment on above: Reference Range: 0.0 0 - 0.10 Complete Blood Count + Differential 0.15 {x10E9/L} See Below [facility] Work Phone: Comment on above: Reference Range: 0.0 0 - 0.40 Complete Blood Count + Differential 0.57 {x10E9/L} See Below [facility] Work Phone: Comment on above: Reference Range: 0.0 5 - 0.80 Complete Blood Count + Differential 1.24 {x10E9/L} See Below [facility] Work Phone: Comment on above: Reference Range: 0.8 0 - 3.00 Complete Blood Count + Differential 5.68 {x10E9/L} above high threshold See Below [facility] Work Phone: Comment on above: Reference Range: 1.6 0 - 5.50 Complete Blood Count + Differential 2.0 % 0.0 - 6.0 [facility] Work Phone: Complete Blood Count + Differential 0.3 % 0.0 - 0.9 [facility] Work Phone: Comment on above: Immature Granulocyte Count (IG) includes promyelocytes, myelocytes and metamyelocytes but does not include bands. Percent differential counts (%) should be interpreted in the context of the absolute cell counts (cells/L). Laboratory - Chemistry and C hemistry - challengeon 01-11-2021 Albumin BCP dye [Mass/Vol] 4.1 g/dL 3.4 - 5.0 [facility] Work Phone: ALP [Catalytic activity/Vol] 82 U/L 33 - 136 [facility] Work Phone: [phone] ALT With P-5'-P [Catalytic activity/Vol] 12 U/L 10 - 52 [facility] Work Phone: [phone] Comment on above: Patients treated wit h Sulfasalazine may generate falsely decreased results for ALT. Anion gap [Moles/Vol] 12 mmol/L 10 - 20 [facility] Work Phone: [phone] AST With P-5'-P [Catalytic activity/Vol] 12 U/L 9 - 39 [facility] Work Phone: [phone] Bilirubin [Mass/Vol] 0.5 mg/dL 0.0 - 1.2 [facility] Work Phone: [phone] Calcium [Mass/Vol] 9.8 mg/dL 8.6 - 10.3 [facility] Work Phone: [phone] Chloride [Moles/Vol] 103 mmol/L 98 - 107 [facility] Work Phone: [phone] CO2 [Moles/Vol] 30 mmol/L 21 - 32 [facility] Work Phone: [phone] Creatinine [Mass/Vol] 1.20 mg/dL See Below [facility] Work Phone: [phone] Comment on above: Reference Range: 0.5 0 - 1.30 Glucose [Mass/Vol] 147 mg/dL above high threshold 74 - 99 [facility] Work Phone: [phone] Potassium [Moles/Vol] 4.5 mmol/L 3.5 - 5.3 [facility] Work Phone: [phone] Protein [Mass/Vol] 7.0 g/dL 6.4 - 8.2 [facility] Work Phone: [phone] Sodium [Moles/Vol] 140 mmol/L 136 - 145 [facility] Work Phone: [phone] Urea nitrogen [Mass/Vol] 19 mg/dL 6 - 23 [facility] Work Phone: [phone] MRI Liver w/wo Contraston MR Liver WO and W contrast IV Normal [facility] Work Phone: No Panel Informationon 01-11 73 {mL/min/1.73m2} >60 [facility] Work Phone: Comment on above: CALCULATIONS OF LACEY MATED GFR ARE PERFORMED USING THE MDRD STUDY EQUATION FOR THE IDMS-TRACEABLE CREATININE METHODS. CLIN CHEM 2007;53:766-72 60 {mL/min/1.73m2} Abnormal >60 [facility] Work Phone: Prostate Specific Antigenon 01-11-2021 Prostate specific Ag [Mass/Vol] 0.29 ng/mL See Below [facility] Work Phone: Comment on above: Reference Range: 0.0 0 - 4.00The FDA requires that the method used for PSA assay be reported to the physician. Values obtained with different assay methods must not be used interchangeably. This test was performed at [facility] using the [employer] PSA method, which is a sandwich immunoassay using chemiluminescence for quantitation. The assay is approvedfor measurement of prostate-specific antigen (PSA) in serum and may be used in conjunction with a digital rectalexamination in men 50 years and older as an aid in detection of prostate cancer. 7-Sohzy-vgrebxaeb inhibitors (e.g. Proscar, Finasteride, Avodart, Dutasteride and [...] visit. 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 He underwent EGD on 11/28/2020 at the [facility] in [facility] for a longstanding history of gastroesophageal [...] Calcium 10 MG Oral Tablet Results/Data Gastrin, [id number] 08:49AMNon Ambulatory, Provider Ordering Provider: NEFTALI KNOWLES [id number] Test NameResultFlagReference Gastrin, Serum21 pg/mL0-100 Performed By: [facility] [address] [place] [id number] [employer]ated Manufacturing Instructor: Katharine Vergara MD CT Abdomen and Pelvis with IV [id number] 05:35PMNon Ambulatory, Provider Ordering Provider: NEFTALI KNOWLES [id number] Abdomen and Pelvis with [...] for staging purposes. COMPARISON: None. ACCESSION NUMBER(S): [id number] ORDERING CLINICIAN: NEFTALI KNOWLES TECHNIQUE: CT of [...] is n (more content not included)... 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,N13.8) Orders SocHx: Non-smoker Tobacco Use Screening; Status:Complete; Done: [id number] Perform:Not Applicable;Ordered; For:SocHx: Non-smoker; Ordered By:Neelima Brock; [...] (V49.89) (Z78.9) Allergies Medication ciprofloxacin Recorded By: Neleima Brock; 01/08/2021 2:21:14 PM Lisinopril TABS Recorded [...] Tablet Vitals Vital Signs Recorded: 08Jan2021 02:15PM Dtxkxzspfsl09.5 F Heart Rate76 Hsxhkpcz884 Sthedmyiq64 Height5 ft 10 in Eydddv510 lb BMI Gafenjualk79.87 kg/m2 BSA Calculated2.27 Tobacco Useb) No Fall [...] Results/Data CT Abdomen and Pelvis with IV [id number] 05:35PMNon Ambulatory, Provider Ordering Provider: NEFTALI KNOWLES [id number] Abdomen and Pelvis with [...] for st (more content not included)... Normal [facility] Tobacco Screening.on Fall risk assessment a) No falls within the last year -[facility] Work Phone: Tobacco use status CPHS b) No [facility] Work Phone: Complete Blood Count + Diffe rentialon 12-26-2020 Hematocrit (Bld) [Volume fraction] Canceled [facility] Work Phone: Hemoglobin (Bld) [Mass/Vol] Canceled [facility] Work Phone: Platelets (Bld) [#/Vol] Canceled [facility] Work Phone: RBC (Bld) [#/Vol] Canceled -Surg [facility] Work Phone: Complete Blood Count + Differential Canceled [facility] Work Phone: Comment on above: Immature Granulocyte [...] 12-26-2020 Gastrin [Mass/Vol] 21 pg/mL 0-100 [facility] Work Phone: Comment on above: Performed By: MARISSA Butterfield [address] [id number] Director: Katharine Vergara MD Laboratory - Chemistry and C hemistry - challengeon 12-26-2020 Albumin BCP dye [Mass/Vol] Canceled -[facility] Work Phone: [phone] ALP [Catalytic activity/Vol] [facility]anceled [facility]: [phone] ALT With P-5'-P [Catalytic activity/Vol] Canceled MG-Surg [facility] Work Phone: [phone] Comment on above: Patients treated wit h Sulfasalazine may generate falsely decreased results for ALT. AST With P-5'-P [Catalytic activity/Vol] Canceled MG-Surg [facility] Work Phone: [phone] Bilirubin [Mass/Vol] Canceled MG-[facility] Work Phone: [phone] Calcium [Mass/Vol] Canceled -[facility] Work Phone: [phone] Chloride [Moles/Vol] Canceled [facility] Work Phone: [phone] CO2 [Moles/Vol] Canceled [facility]: [phone] Creatinine [Mass/Vol] Canceled [facility] Work Phone: [phone] Glucose [Mass/Vol] Canceled [facility] Work Phone: [phone] Potassium [Moles/Vol] Canceled [facility] Work Phone: [phone] Protein [Mass/Vol] Canceled [facility] Work Phone: [phone] Sodium [Moles/Vol] Canceled [facility] Work Phone: [phone] Urea nitrogen [Mass/Vol] Canceled -[facility] Work Phone: [phone] Abdomen and Pelvis with I V Contraston 07-13-2021 CT Abdomen and Pelvis W contrast IV Normal MG-Surgery- [facility] Work Phone: [phone] Complete Blood Count + Alva choi 12-25-2020 Basophils/100 WBC (Bld) 0.2 % 0.0 - 2.0 [facility] Work Phone: [phone] Erythrocyte distribution width (RBC) [Ratio] 15.7 % above high threshold See Below [facility] Work Phone: [phone] Comment on above: Reference Range: 11. 5 - 14.5 Hematocrit (Bld) [Volume fraction] 40.2 % below low threshold See Below [facility] Work Phone: [phone] Comment on above: Reference Range: 41. 0 - 52.0 Hemoglobin (Bld) [Mass/Vol] 13.0 g/dL below low threshold See Below [facility] Work Phone: [phone] Comment on above: Reference Range: 13. 5 - 17.5 Lymphocytes/100 WBC (Bld) 14.4 % See Below [facility] Work Phone: [phone] Comment on above: Reference Range: 13. 0 - 44.0 MCHC (RBC) [Mass/Vol] 32.3 g/dL See Below [facility] Work Phone: [phone] Comment on above: Reference Range: 32. 0 - 36.0 MCV (RBC) [Entitic vol] 89 fL 80 - 100 [facility] Work Phone: [phone] Monocytes/100 WBC (Bld) 7.5 % 2.0 - 10.0 [facility] Work Phone: [phone] Neutrophils/100 WBC (Bld) 76.9 % See Below [facility] Work Phone: [phone] Comment on above: Reference Range: 40. 0 - 80.0 Platelets (Bld) [#/Vol] 401 10*3/uL 150 - 450 [facility] Work Phone: [phone] RBC (Bld) [#/Vol] 4.50 {x10E12/L} See Below [facility] Work Phone: [phone] Comment on above: Reference Range: 4.5 0 - 5.90 WBC (Bld) [#/Vol] 11.4 10*3/uL above high threshold 4.4 - 11.3 [facility] Work Phone: [phone] Complete Blood Count + Differential 0.02 {x10E9/L} See Below [facility] Work Phone: [phone] Comment on above: Reference Range: 0.0 0 - 0.10 Complete Blood Count + Differential 0.08 {x10E9/L} See Below [facility] Work Phone: [phone] Comment on above: Reference Range: 0.0 0 - 0.40 Complete Blood Count + Differential 0.86 {x10E9/L} above high threshold See Below [facility] Work Phone: [phone] Comment on above: Reference Range: 0.0 5 - 0.80 Complete Blood Count + Differential 1.65 {x10E9/L} See Below [facility] Work Phone: Comment on above: Reference Range: 0.8 0 - 3.00 Complete Blood Count + Differential 8.78 {x10E9/L} above high threshold See Below [facility] Work Phone: [phone] Comment on above: Reference Range: 1.6 0 - 5.50 Complete Blood Count + Differential 0.7 % 0.0 - 6.0 [facility] Work Phone: [phone] Complete Blood Count + Differential 0.3 % 0.0 - 0.9 [facility] Work Phone: [phone] Comment on above: Immature Granulocyte Count (IG) includes promyelocytes, myelocytes and metamyelocytes but does not include bands. Percent differential counts (%) should be interpreted in the context of the absolute cell counts (cells/L). Gastrin, Serumon 07-13-2021 Gastrin [Mass/Vol] Canceled [facility] Work Phone: [phone] Laboratory - Chemistry and C hemistry - challengeon 12-25-2020 Albumin BCP dye [Mass/Vol] 4.3 g/dL 3.4 - 5.0 [facility] Work Phone: [phone] ALP [Catalytic activity/Vol] 88 U/L 33 - 136 -[facility] Work Phone: [phone] ALT With P-5'-P [Catalytic activity/Vol] 11 U/L 10 - 52 -Surg [facility] Work Phone: [phone] Comment on above: Patients treated wit h Sulfasalazine may generate falsely decreased results for ALT. Anion gap [Moles/Vol] 15 mmol/L 10 - 20 [facility] Work Phone: [phone] AST With P-5'-P [Catalytic activity/Vol] 12 U/L 9 - 39 MG-Surg [facility] Work Phone: [phone] Bilirubin [Mass/Vol] 0.4 mg/dL 0.0 - 1.2 MG-S [facility] Work Phone: [phone] Calcium [Mass/Vol] 9.8 mg/dL 8.6 - 10.3 [facility] Work Phone: [phone] Chloride [Moles/Vol] 104 mmol/L 98 - 107 MG[facility] Work Phone: [phone] CO2 [Moles/Vol] 23 mmol/L 21 - 32 MG-Surger [facility] Work Phone: [phone] Creatinine [Mass/Vol] 1.15 mg/dL See Below [facility] Work Phone: [phone] Comment on above: Reference Range: 0.5 0 - 1.30 Glucose [Mass/Vol] 101 mg/dL above high threshold 74 - 99 [facility] Work Phone: Potassium [Moles/Vol] 4.3 mmol/L 3.5 - 5.3 [facility] Work Phone: Protein [Mass/Vol] 7.5 g/dL 6.4 - 8.2 [facility] Work Phone: Sodium [Moles/Vol] 138 mmol/L 136 - 145 [facility] Work Phone: Urea nitrogen [Mass/Vol] 30 mg/dL above h igh threshold 6 - 23 [facility] Work Phone: No Panel Informationon 12-25 >60 >60 [facility] Work Phone: Comment on above: CALCULATIONS OF LACEY MATED GFR ARE PERFORMED USING THE MDRD STUDY EQUATION FOR THE IDMS-TRACEABLE CREATININE METHODS. CLIN CHEM 2007;53:766-[address] Net WB (Net Spot)on 0 12-25-[address] Net WB (Net Spot) Normal [facility] Work Phone: No Panel Informationon 12-21 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 He will be undergoing serum gastrin level testing as well as cross-sectional imaging. I will obtain his EGD report from [facility]. It is currently unclear to me where [...] Duodenal well-differentiated neuroendocrine tumor History of Present Nwwbiez50-fzsm-snl man referred to me from Dr. Johansen for duodenal well-differentiated neuroendocrine tumor. He underwent EGD on 11/28/2020 at the [facility] in [facility] for a longstanding history of gastroesophageal [...] Dec 19 2020 2:29PM EST (Author) Normal [facility] H PYLORI TISSUEon 11-28-2020 H PYL TISSUE, UREASE Negative Normal NEGATIVE [facility] Comment on above: Performed By: #### P OCGLUC #### [facility] [id number] Freda Wayne POINT OF CARE GLUCOSEon 11-13 Glucose [Mass/Vol] 129 mg/dL Critically high 74-106 [facility] Comment on above: Performed By: #### P OCGLUC #### [facility] [address] [place] [id number] José Luis Mathuren Covid-19 PCR (CVDTBH)on 11-13 SARS-CoV-2 (COVID-19) RNA SHRUTI+probe Ql (Unsp spec) Not detected Normal NOT DETECTED [facility] Comment on above: Result Comment: This test is not yet approved or cleared by the [place] FDA. When there are no FDA-approved or cleared tests available, and other criteria are met, FDA can make tests available under an emergency access mechanism called an Emergency Use Authorization (EUA). The EUA for this test is supported by the [employer] Tester of Health and Human Service's (HHS's) declaration [...] consistent with SARS-CoV-2. Performed By: #### C [facility] #### [facility] [address] [place] [address] Dr. Freda Wayne [place] HEPATOBILIARY SCAN W [...] by: MARCELLO LEE Date: 2020-06-18 10:24 Normal [facility] Vital Signs Date Time Vital Sign Value Performing Clinician Facility 06-10-2023 09:30-0500 Diastolic blood pressure 63 mm[Hg] Sam Padilla MD Work Phone: [facility] 06-10-2023 09:30-0500 Heart rate 62 /min Sam Padilla MD Work Phone: [facility] 06-10-2023 09:30-0500 Respiratory rate 18 /min Sam Padilla MD Work Phone: [facility] 06-10-2023 09:30-0500 SaO2% (BldA) [Mass fraction] 96 % Sam Padilla MD Work Phone: [facility] 06-10-2023 09:30-0500 Systolic blood pressure 138 mm[Hg] Sam Padilla MD Work Phone: [facility] 06-10-2023 09:10-0500 Body temperature 97.9 [degF] Sam Padilla MD Work Phone: [facility] 06-10-2023 07:28-0500 Body height 177.8 cm Sam Padilla MD Work Phone: [facility] 06-10-2023 07:28-0500 Body mass index (BMI) [Ratio] 34.29 kg/m2 Sam Padilla MD Work Phone: [facility] 06-10-2023 07:28-0500 Body weight 108.41 kg Sam Padilla MD Work Phone: [facility] 01-08-2021 14:15-0400 Body height 177.8 cm Vanessa Steele Work Phone: [facility] Work Phone: 01-08-2021 14:15-0400 Body mass index (BMI) [Ratio] 34.87 kg/m2 Vanessa Steele Work Phone: [facility] Work Phone: 01-08-2021 14:15-0400 Body surface area Derived from formula 2.27 m2 Vanessa Steele Work Phone: [facility] Work Phone: 01-08-2021 14:15-0400 Body temperature 97.5 [degF] Vanessa Steele Work Phone: [facility] Work Phone: 01-08-2021 14:15-0400 Body weight 110.22 kg Vanessa Steele Work Phone: [facility] Work Phone: 01-08-2021 14:15-0400 Diastolic blood pressure 81 mm[Hg] Vanessa Steele Work Phone: [facility] Work Phone: 01-08-2021 14:15-0400 Heart rate 76 /min Vanessa Steele Work Phone: [facility] Work Phone: 01-08-2021 14:15-0400 Systolic blood pressure 134 mm[Hg] Vanessa Steele Work Phone: [facility] Work Phone: Encounters Encounter Date Encounter Type Care Provider Facility Start: 12-02-2023 ambulatory Maribeth Tanner Facility:[facility] Start: 07-30-2023 Orders Only Shaikh Jamie HERNANDEZ [facility] Phone: [facility] Comment on above: Stage 3a chronic kid spencer disease (HCC) (CMS/HCC) (Primary Dx); Type 2 diabetes mellitus with stage 3a chronic kidney disease, without long-term current use of insulin (HCC) (CMS/HCC) Start: 07-28-2023 Refill Gerald Hawkins Work Phone: [facility] Comment on above: Primary hypertension (CMS/HCC) (Primary Dx) Start: 07-28-2023 End: 07-30-2023 Patient encounter procedure Ky Justice PA-C Work Phone: [facility] Work Phone: Start: 07-28-2023 End: 07-30-2023 Subsequent hospital visit by physician Ky Justice PA-C Work Phone: [facility] Comment on above: Exam for clinical tr ial Start: 07-27-2023 [facility] Start: 07-15-2023 End: 07-15-2023 ambulatory JAMIE Not Available Start: 07-02-2023 ambulatory Maribeth Tanner Facility:[facility] Start: 06-30-2023 ambulatory Maribeth Lue Facility:[facility] Start: 06-29-2023 End: 06-29-2023 ambulatory RENEA YING Not Available Start: 06-10-2023 End: 06-11-2023 ambulatory SAM LOWCASANDRA [facility] Start: 06-10-2023 End: 06-10-2023 Subsequent hospital visit by physician Sam Padilla MD Work Phone: [facility] Comment on above: 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 Neftali Knowles Facility:[facility] Start: 05-09-2022 Chart Update Vanessa Penny ler Work Phone: [facility] Work Phone: Start: 04-29-2022 End: 04-29-2022 ambulatory Jaskaranheavenly Gómez Facility:[id number] Start: 03-01-2022 AUDIT Vanessa Penny ler Work Phone: [facility] Work Phone: Start: 12-05-2021 ambulatory Ms. Lulu Calle Facilit y:[phone] Start: 12-03-2021 AUDIT Vanessa Penny ler Work Phone: [facility] Work Phone: Start: 10-31-2021 ambulatory Ms. Lulu Calle Facilit y:[phone] Start: 08-26-[address] Neftali Knowles Facility:[facility] Start: 06-04-2021 End: 06-06-2021 Evaluation and management of inpatient DR VANESSA STEELE Facility: Start: 05-20-[address] Neftali Knowles Facility:[facility] Start: 05-16-2021 Result Review Vanessa butts Work Phone: QO-Qttwgzxtipifohpn-Q [place] [facility] 450 DO Work Phone: Start: 05-01-2021 Chart Update Vanessa Penny ler Work Phone: KZ-Mhluyfnoxweoeexc-X [place] [facility] 450 DO Work Phone: Start: 04-26-2021 AUDIT Vanessa Penny ler Work Phone: [facility] Work Phone: Start: 02-05-2021 Telephone encounter Vanessa Steele Work Phone: IG-Klczrqybzelfunhs-N [place] [facility] 450 DO Work Phone: Start: 01-23-2021 AUDIT Vanessa Penny ler Work Phone: WX-Ezwjasjrldxkhose-Q [place] [facility] 450 DO Work Phone: Start: 01-18-2021 AUDIT Vanessa Penny ler Work Phone: [facility] Work Phone: Start: 01-10-2021 Office outpatient vi sit 15 minutes Vanessa Steele Work Phone: [facility] Work Phone: Start: 12-19-2020 Office outpatient ne w 60 minutes Vanessa Steele Work Phone: [facility] Work Phone: Start: 11-29-2020 Encounter for preprocedural laboratory examination DR XAVI THOMPSON [facility] Start: 11-28-2020 End: 11-28-2020 ambulatory MIQUEL SAMMIPAM Facility:[facility] Start: 11-26-2020 End: 11-27-[address] XAVI THOMPSON Facility:[facility] Start: 11-26-2020 End: 11-27-2020 Encounter for preprocedural laboratory examination DR XAVI THOMPSON Facility:[facility] Start: 06-18-2020 End: 06-19-[address] VANESSA STEELE Facility:[facility] Start: 10-08-2018 End: 10-09-2018 Patient encounter procedure DEFAULT PHYSICIAN Facility:[facility] Procedures Date Procedure Procedure Detail Performing Clinician Start: 07-28-2023 Unlisted us procedure Ky Justice PA-C Work Phone: Start: 06-10-2023 PULSE OXIMETRY, CONTINUOUS JAZLYN MCARTHUR Start: 06-10-2023 Esophagogastroduodenoscopy JAZLYN MCARTHUR Start: 06-10-2023 SURGICAL PATHOLOGY EXAM JAZLYN MCARTHUR Start: 06-10-2023 PULSE OXIMETRY, SPOT JAZLYN MCARTHUR Start: 06-10-2023 PLACE IN OUTPATIENT/HOSPITAL AMBULATORY SURGERY JAZLYN MCARTHUR Start: 06-10-2023 PULSE OXIMETRY, CONTINUOUS Sam caruso MD Work Phone: Start: 06-10-2023 Egd transoral biopsy single/multiple Jazlyn Mcarthur [employer] HELPER-TRACK REPAIR PERSON Work Phone: Start: 06-10-2023 Glucose [Mass/volume] in Serum or Plasma JAZLYN MCARTHUR Start: 06-10-2023 PULSE OXIMETRY, SPOT Sam Padilla MD Work Phone: Start: 06-10-2023 Glucose quantitative blood xcpt reagent strip Sam Padilla MD Work Phone: Start: 05-26-2023 CT CHEST ABDOMEN PELVIS W IV CONTRAST JAZLYN MCARTHUR Start: 05-26-2023 Ct thorax w/contrast material Jazlyn clarkba [employer] HELPER-TRACK REPAIR PERSON Work Phone: Start: 05-22-2023 CBC W Auto [...] Screening for malign ant neoplasm of colon [facility] Start: 10-27-2028 DTaP/Tdap/Td vaccine (3 - Td or Tdap) DTaP/Tdap/Td vaccine (3 - Td or Tdap) [facility] Start: 10-27-2028 DTaP/Tdap/Td Vaccine s (4 - Td or Tdap) DTaP/Tdap/Td Vaccines (4 - Td or Tdap) [facility] Start: 03-06-2028 Lipid panel Lipid Panel [facility] Start: 06-10-2024 Diabetes mellitus screening Diabetes Screening [facility] Start: 02-25-2024 Medicare Annual Wellness (AWV) Medicare Annual Wellness (AWV) [facility] Start: 09-28-2023 Hemoglobin A1c measurement Diabetes: Hemoglobin A1C [facility] Start: 08-11-2023 End: 08-11-2023 Patient encounter procedure 08/11/2023 9:15 AM EST Office Visit [facility] [address] [place] [address] Shaikh Ayala MD [address] [facility] [place] [address] GAYE VELASQUEZ Start: 07-31-2023 End: 07-31-2023 Patient encounter procedure 07/31/2023 9:30 AM EST Office Visit [facility] Providers on [place] [id number] Ky Justice PA-C [address] [place] [address] [address] [place] [address] N28.1 - Renal cyst, left [facility] on [facility] [place] Comment on above: N28.1 - Renal cyst, left Start: 06-23-2023 COVID-19 Vaccine (4 - Pfizer series) COVID-19 Vaccine (4 - Pfizer series) [facility] Start: 06-18-2023 End: 06-18-2023 Patient encounter procedure 06/18/2023 12:40 PM EST Office Visit [facility] [address] [place] [id number] [place] [address] [place] [address] [facility] Start: 06-10-2023 End: 06-10-2023 Patient encounter procedure 06/10/2023 8:30 AM EST Appointment [facility] [address] [place] [id number] [place] [address], [facility] [address] [place] [address] [facility] Start: 04-29-2023 Diabetes mellitus screening Diabetes Screening [facility] Start: 04-29-2022 ROSI, Provider: Jeremiah Magaña, Status: Pen, Time: 7:30 AM EGDANS, Provider: Jeremiah Magaña, Status: Pen, Time: 7:30 AM BG-Mgwyifyl-Ftkpqruv 1500 Work Phone: Start: 11-13-2021 NPV, Provider: Deb Zavala, Status: Pen, Time: 11:20 AM NPV, Provider: Deb Zavala, Status: Pen, Time: 11:[address]-Bkufurkl-Lnabtmgh 1500 Work Phone: Start: 05-01-2021 EGDANS, Provider: Irwin Cespedes, Status: Pen, Time: 8:30 AM EGDANS, Provider: Irwin Cespedes, Status: Pen, Time: 8:30 AM WV-Jrfbjinavhtnfwoe-M [place] [address] DO Work Phone: Start: 01-23-2021 EUSANS, Provider: Irwin Cespedes, Status: Pen, Time: 10:30 AM EUSANS, Provider: Irwin Cespedes, Status: Pen, Time: 10:30 AM [facility] Work Phone: Start: 07-08-2020 Glaucoma screening Diabetes: R etinopathy Screening [facility] Start: 07-19-2016 Shingles vaccine (2 of 3) Shingles vaccine (2 of 3) [facility] Start: 07-19-2016 Zoster Vaccines (2 o f 3) Zoster Vaccines (2 of 3) [facility] Start: 2014 Abdominal aortic aneurysm screening Abdominal Aortic Aneurysm (AAA) Screening [facility] Start: 2009 Hepatitis B Vaccines (1 of 3 - Risk 3-dose series) Hepatitis B Vaccines (1 of 3 - Risk 3-dose series) [facility] Start: 2009 Respiratory Syncytia l Virus (RSV) or age 60 yrs+ (1 - 1-dose 60+ series) Respiratory Syncytial Virus (RSV) or age 60 yrs+ (1 - 1-dose 60+ series) [facility] Start: 1994 Screening for malign ant neoplasm of colon [facility] Start: 1989 Lipid panel Lipids [facility] Start: 1968 Hepatitis A Vaccines (1 of 2 - Risk 2-dose series) Hepatitis A Vaccines (1 of 2 - Risk 2-dose series) [facility] Start: 1967 Hepatitis C screening U [facility] Start: 1961 Depression Screen Depression Screen [facility] Start: 1949 Medicare Annual Wellness Visit Medicare Annual Wellness Visit (AWV) [facility] Start: 1949 Screening for malign ant neoplasm of colon [facility] End: 05-26-2023 CT Chest and Abdomen and Pelvis W contrast IV [facility] Service Area Work Phone: Comment on above: Once for 1 Occurrenc es starting 05/26/2023 until 05/26/2023 Surgical pathology study [facility] Work Phone: Comment on above: Release Upon Orderin g for 1 Occurrences starting 06/10/2023 Release Upon Orderin g for 1 Occurrences starting 06/10/2023, 1 completed Immunizations Immunization Date Immunization Notes Care Provider Fa [facility] 03-20-2023 Influenza, High-dose Seasonal, Quadrivalent, Preservative Free Gerald Low MD Work Phone: [facility] 02-24-2023 pneumococcal polysaccharide vaccine, 23 valent Gerald Low MD Work Phone: [facility] 03-27-2022 Influenza, High-dose Seasonal, Quadrivalent, Preservative Free Gerald Low MD Work Phone: [facility] 10-15-2021 Comirnaty 30 MCG/0.3 ML Intramuscular Suspension Vanessa Steele Work Phone: BH-Fypwwxmj-Kiymnda e 1500 Work Phone: 03-25-2021 Pfizer-BioNTech COVI D-19 Vacc 30 MCG/0.3ML Intramuscular Suspension Vanessa Steele Work Phone: GW-Cgnccajw-Wyeumgv e 1500 Work Phone: 03-01-2021 Fluzone High-Dose Quadrivalent 0.7 ML Intramuscular Suspension Prefilled Syringe Vanessa Steele Work Phone: HZ-Oqdekhup-Golchqh e 1500 Work Phone: 08-07-2020 Pfizer-BioNTech COVI D-19 Vacc 30 MCG/0.3ML Intramuscular Suspension Vanessa Steele Work Phone: [facility] Work Phone: 07-17-2020 Pfizer-BioNTech COVI D-19 Vacc 30 MCG/0.3ML Intramuscular Suspension Vanessa Steele Work Phone: [facility] Work Phone: 02-24-2020 Fluzone High-Dose Quadrivalent 0.7 ML Intramuscular Suspension Prefilled Syringe Vanessa Steele Work Phone: [facility] Work Phone: 03-09-2019 influenza, high dose seasonal, preservative-free Vanessa Steele Work Phone: [facility] Work Phone: 11-22-2018 pneumococcal conjuga te vaccine, 13 valent Vanessa Steele Work Phone: [facility] Work Phone: 10-27-2018 tetanus and diphther ia toxoids, adsorbed, preservative free, for adult use (2 Lf of tetanus toxoid and 2 Lf of diphtheria toxoid) Gerald Low MD Work Phone: [facility] 10-27-2018 tetanus toxoid, redu norris diphtheria toxoid, and acellular pertussis vaccine, adsorbed Vanessa Steele Work Phone: [facility] Work Phone: 05-21-2018 pneumococcal conjuga te vaccine, 13 valent Vanessa Steele Work Phone: [facility] Work Phone: 04-09-2018 influenza, high dose seasonal, preservative-free Vanessa Steele Work Phone: [facility] Work Phone: 05-18-2017 influenza, high dose seasonal, preservative-free Vanessa Steele Work Phone: [facility] Work Phone: 05-24-2016 zoster vaccine, live Ponce n Yissel Steele Work Phone: [facility] Work Phone: 05-15-2016 zoster vaccine, live Ponce n Yissel Steele Work Phone: [facility] Work Phone: 03-13-2016 influenza, seasonal, injectable, preservative free Vanessa Steele Work Phone: [facility] Work Phone: 03-28-2015 influenza, seasonal, injectable, preservative free Vanessa Steele Work Phone: [facility] Work Phone: 03-14-2011 tetanus toxoid, redu norris diphtheria toxoid, and acellular pertussis vaccine, adsorbed Vanessa Steele Work Phone: [facility] Work Phone: 08-06-2009 novel influenza-H1N1 -09, preservative-free, injectable Vanessa Steele Work Phone: [facility] Work Phone: 05-12-2006 pneumococcal polysaccharide vaccine, 23 valent Vanessa Steele Work Phone: [facility] Work Phone: Payers Date Payer Category Payer Private Health Insurance TAVARESMITZY Slime DANGELO [id number] 2022-Present [address] [place] [phone] [id number] 2016 Medicare [id number] 2016 Unknown 1959 Medicare [id number] 1959 Private Health Insurance [id number] 1949 Unknown [id number] [id number]. 647 1949 Unknown [id number] 2.16.840.1.116712.3.579.2. 593 1949 Unknown [id number] 2.16.840.1.599646.3.579.2. 593 1949 Unknown [id number] 2.16.840.1.514867.3.579.2. 593 1949 Unknown [id number] 2.16.840.1.652335.3.579.2. 593 1949 Unknown [id number] 2.16.840.1.675438.3.579.2. 356 1949 Unknown [id number] 2.16.840.1.046045.3.579.2. 356 1949 Unknown [id number] 2.16.840.1.890385.3.579.2. 356 1949 Unknown [id number] 2.16.840.1.916517.3.579.2. 356 1949 Unknown [id number] 2.16.840.1.135119.3.579.2. 356 1949 Unknown [id number] 2.16.840.1.552347.3.579.2. 1069 1949 Unknown [id number] 2.16.840.1.323812.3.579.2. 1069 1949 Unknown [id number] 2.16.840.1.151093.3.579.2. 1245 1949 Unknown [id number] 2.16.840.1.847527.3.579.2. 1243 1949 Unknown [id number] 2.16.840.1.034561.3.579.2. 1243 1949 Unknown [id number] 2.16.840.1.694590.3.579.2. 1259 1949 Unknown [id number] 2.16.840.1.113567.3.579.2. 1259 1949 Unknown [id number] 2.16.840.1.010115.3.579.2. 1259 Social History Date Type Detail Facility Start: 02-18-2023 End: 06-10-2023 Non-smoker Non-smoker [facility] Healthcare Tobacco smoking status KSIS Tobacco smoking consumption unknown [facility] Work Phone: Start: 1950 [facility] Start: 02-18-2023 End: 06-10-2023 Gender identity Not on file [facility] Start: 05-12-2023 End: 06-10-2023 Exposure to SARS-CoV-2 (event) Not sure [facility] Start: 06-10-2023 End: 07-15-2023 Tobacco smoking status NHIS Ex-smoker [facility] Work Phone: End: 06-15-1983 History of tobacco use Current smoker [facility] Work Phone: End: 06-15-1983 History of tobacco use Cigarette Smoker [facility] Work Phone: Start: 06-10-2023 End: 07-15-2023 Tobacco use and exposure Smokeless tobacco non-user [facility] Work Phone: Start: 06-10-2023 End: 07-15-2023 Alcohol intake Current drinker of alcohol (finding) [facility] Work Phone: Start: 06-10-2023 Alcohol Comment [facility] Work Phone: Within the last year , have you been afraid of your partner or ex-partner? No [facility] How often do you attend latter day or mandaeism services? Patient refused [facility] Are you now , , , , never or living with a partner? [facility] How often to you hav e a drink containing alcohol? Monthly or less [facility] How many standard drinks containing alcohol do you have on a typical day? 1 or 2 [facility] How often do you hav e 6 or more drinks on 1 occasion? Monthly [facility] Do you feel stress - tense, restless, nervous, or anxious, or unable to sleep at night because your mind is troubled all the time - these days [OSQ] Only a little [facility] (I/We) worried whether (my/our) food would run out before (I/we) got money to buy more. Never true [facility] Start: 06-28-2023 Alcohol Comment caffeine: none [facility] Start: 08-27-2022 Gender identity Identifies as male gender (finding) [facility] NEGATED: Highlighted rowStart: BERNARDF History of tobacco use Passive smoker [facility] Medical Equipment Procedure Code Equipment Code Equipment Original Text Equipment Identifier Dates Generic Supply 0 8 Case [id number] Start: 01-23-2021 Comment on above: Description: Convert ed from [facility]. Please see archived information for full log information. USE DIRECTED ONCE TEST [id number] Start: 06-22-2023 Clinical Notes 11-28-2020 to 07-27-2023 Discharge InstructionsPre-Sedation Documentation - Sam Padilla MD - 06/10/2023 8:30 AM ESTPre-Sedation Documentation - Sam Padilla MD - 06/10/2023 8:30 AM EST Note Date & Type Note Facility 07-27-2023 Note Cardiovascular Labor atory Report FINAL IMPRESSIONS: Mild coronary artery disease Normal global left ventricular systolic function by noninvasive imaging Normal right-sided filling pressures and low normal pulmonary capillary wedge pressure Normal cardiac output/cardiac index Moderate to severe systemic hypertension RECOMMENDATIONS: Aggressive cardiovascular factor modification Optimal medical therapy for coronary artery disease should include aspirin, statin +/- an angiotensin-converting enzyme inhibitor Given evidence of bradycardia, will avoid a beta-janet at this juncture Should there be residual concerns regarding ventricular ectopy, will refer to our electrophysiology colleagues Follow-up with our cardiology office in the [facility] in the next 2 to 4 weeks PROCEDURES: Ultrasound-guided access to the right internal jugular vein, right heart catheterization, ultrasound-guided access to the left radial artery, bilateral selective coronary angiography METHODS: After risks, benefits, and alternatives were explained, written informed consent was obtained. The patient was prepped and draped in usual sterile fashion over the right neck and left radial regions. Using 1% lidocaine solution, local infiltration anesthesia was achieved. Using a modified Seldinger technique, a micropuncture kit, and under ultrasound guidance, access to the right internal jugular vein was obtained. A 6 English 11 cm sheath was inserted without difficulty. Right heart catheterization was performed using a Ponce catheter via the venous sheath. Pressures were measured in the right atrium, right ventricle, pulmonary artery, and pulmonary capillary wedge positions. Oxygen saturations were obtained and cardiac output/cardiac index was calculated using the modified Pretty principle. The Ponce catheter was removed. The jugular sheath was removed with application of manual pressure to achieve optimal hemostasis. Local infiltration anesthesia was achieved of the left wrist. Using a micropuncture kit, and under ultrasound-guided access of the left radial artery was obtained. A 6 English glide sheath was inserted without difficulty. Bilateral selective coronary angiography was performed using JL4 and JR4 catheters. After reviewing the images, it was elected to conclude the procedure. All catheters were removed. The radial sheath was removed with application of a TR band per protocol to achieve optimal hemostasis. Overall the patient tolerated the procedure well. There were no overt complications. He was to be transferred to the holding area in stable condition. FINDINGS: Hemodynamics: RA Mean 2 RV 30/1, 2 PA 30/6 [15] PCWP 5 TPG 10 AO 160/78 [122] Cardiac output /cardiac index 8.01/3.6 AO sat /PA sat 94% / 71% LEFT VENTRICULOGRAPHY: This was not performed; ejection fraction is normal by echocardiography CORONARY ARTERIES: Left main coronary artery: This arises from the left coronary cusp, it bifurcates into the left anterior descending and left circumflex coronary arteries. It is free of significant stenosis. Left anterior descending coronary artery: This is angiographically nonobstructive with luminal irregularities and plaque disease in the midportion adjacent to a large branching second diagonal. Left circumflex coronary artery: This shows plaque at the ostium estimated to be 20 to 30% in severity. The remainder of the vessel is angiographically nonobstructive. Right coronary artery: This is a dominant vessel arising from the right coronary cusp giving rise to the posterior descending and posterolateral branches. It is angiographically nonobstructive with luminal irregularities. INDICATIONS: Nonsustained ventricular tachycardia, abnormal stress test [facility] 07-10-2023 Note Frequent PVCs, bigemeny, NSVT Un iversity [facility] 07-10-2023 Note 4 beat NSVT noted on treadmill stress test- ordered cardiac cath for further ischemia evaluation with recent near syncope, abnormal EKG and stress test, chest pain [facility] 07-10-2023 Note Recently admitted to [facility] for near syncope, bradycardia, abnormal stress test with NSVT while on treamill. Frequent PVCS [facility] 06-10-2023 Hospital Discharge instructions Sam Padilla MD [...] having your procedure, call the [facility] to be advised whether a visit to [...] or looks infected. 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: (Not in a hospital admission) Current [...] (This is my H and P ) [facility] Work Phone: 01-10-2021 Chief complaint Narrative - Reported An interactive audio and video telecommunication system which permits real time communications between the patient (at the originating site) and provider (at the distant site) was utilized to provide this telehealth service.Verbal consent was requested and obtained from YUSEF CAR on this date, 01/10/2021 09:30 AM , for a telehealth visit.Duodenal neuroendocrine tumor [facility] Work Phone: 11-28-2020 History of Present illness Narrative 70-year-old man referred to me from Dr. Johansen for duodenal well-differentiated neuroendocrine tumor. He underwent EGD on 11/28/2020 at the [facility] in [facility] for a longstanding history of gastroesophageal [...] alcohol, no illicit drug useHe is retired [facility] Work Phone: 11-28-2020 History of Present illness Narrative 70-year-old man with duodenal well-differentiated neuroendocrine tumor. He underwent EGD on 11/28/2020 at the [facility] in [facility] for a longstanding history of gastroesophageal [...] visit with the patient and his . [facility] Work Phone: Evaluation note Diagnosis Primary malignant neuroendocrine neoplasm of duodenum (CMS/HCC) documented in this encounter [facility] Work Phone: Evaluation note* Diagnosis Primary malignant neuroendocrine neoplasm of duodenum (CMS/HCC) documented in this encounter [facility] Work Phone: Evaluation note* Diagnosis Primary malignant neuroendocrine neoplasm of duodenum (CMS/HCC)- Primary documented in this encounter [facility] Work Phone: Evaluation note* Diagnosis Primary hypertension (CMS/HCC)- Primary Unspecified essential hypertension [facility] Diagnosis Exam for clinical trial Examination of participant in clinical trial documented in this encounter [facility] Work Phone: evaluation note* Diagnosis Stage 3a chronic kidney disease (HCC) (CMS/HCC)- Primary Type 2 diabetes mellitus with stage 3a chronic kidney disease, without long-term current use of insulin (HCC) (CMS/HCC) [facility]* HISTORY OF PRESENT ILLNESS: * Mr. CAR is a 71 year old male with a personal history of duodenal neuroendocrine cancer. He wasreferred to the [facility] at [facility] by his provider, Ania Foster CNP. Mr. 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 CAR is of [place] and [place] descent. There is no known Ashkenazi Nondenominational ancestry. Consanguinity was denied. No genetic testing has been done in the family before. [facility] Work Phone: History of Present illness NarrativePlease see previous genetics note.[facility] Work Phone: Summary Purpose Family History No [...] CT chest abdomen pelvis w IV contrast Jazlyn Mcarthur Abdirahman, TRUSS PULLER HELPER-TRACK REPAIR PERSON [address] [address] [facility] Hematology and Oncology [place] [phone] Referral ID Status Reason Start Date Expiration Date Visits Requested Visits Authorized [id number] Pending Review Perform Procedure 05/19/2023 05/18/2024 1 1 Specialty Diagnoses / Procedures Referred By Contact Referred To Contact Gastroenterology Diagnoses Primary malignant neuroendocrine neoplasm of duodenum (CMS/HCC) Procedures EGD MI ESOPHAGOGASTRODUODENOSCOPY TRANSORAL DIAGNOSTIC MI EGD TRANSORAL BIOPSY SINGLE/MULTIPLE Sammiesam Jazlyn Abdirahman, TRUSS PULLER HELPER-TRACK REPAIR PERSON [address] [address] [facility] Hematology and Oncology [place] [phone] Referral ID Status Reason Start Date Expiration Date V isits Requested Visits Authorized [id number] Pending Review 05/19/2023 05/18/2024 1 1 Specialty Diagnoses / Procedures Referred By Contac t Referred To Contact Radiology Diagnoses Exam for clinical trial Procedures US COMPARISON OF OUTSIDE FILMS Ky Justice PA-C [address] [facility] [address] [place] [address] Referral ID Status Reason Start Date Expiration Date V isits Requested Visits Authorized [id number] Pending Review 07/28/2023 07/27/2024 1 1 Additional Source Comments (unrecognized sect ion and content) No Status Records FoundNo Status Records FoundNo Status Records FoundNo Status Records FoundNo Status Records FoundNo Status Records FoundNo Status Records FoundNo Status Records FoundNo Status Records FoundNo Status Records FoundNo Status Records Found INFORMATION SOURCE (unrecogn ized section and content) DATE CREATED AUTHOR 10/12/2018 [facility] DATE CREATED AUTHOR AUTHOR'S ORGANIZ ATION 06/13/2021 [facility] DATE CREATED AUTHOR AUTHOR'S ORGANIZ ATION 12/06/2021 [facility] DATE CREATED AUTHOR AUTHOR'S ORGANIZ ATION 05/14/2022 [facility] DATE CREATED AUTHOR AUTHOR'S ORGANIZ ATION 09/17/2022 [facility] DATE CREATED AUTHOR AUTHOR'S ORGANIZ ATION 05/28/2023 [facility] DATE CREATED AUTHOR AUTHOR'S ORGANIZ ATION 07/01/2023 [facility] DATE CREATED AUTHOR AUTHOR'S ORGANIZ ATION 07/16/2023 [facility] DATE CREATED AUTHOR AUTHOR'S ORGANIZ ATION 07/29/2023 [facility] DATE CREATED AUTHOR AUTHOR'S ORGANIZ ATION 07/30/2023 [facility] DATE CREATED AUTHOR AUTHOR'S ORGANIZ ATION 07/31/2023 [facility] Reason for Visit (unrecogniz ed section and content) Specialty Diagnoses / Procedures Referred By William kingsley Referred To Contact Radiology Diagnoses Primary malignant neuroendocrine neoplasm of duodenum (CMS/HCC) Procedures CT chest abdomen pelvis w IV contrast Jazlyn Mcarthur TRUSS PULLER HELPER-TRACK REPAIR PERSON [address] [address] [facility] [place]ology [place] [address] Referral ID Status Reason Start Date Expiration Date Visits Requested Visits Authorized [id number] Pending Review Perform Procedure 05/19/2023 05/18/2024 1 1 Specialty Diagnoses / Procedures Referred By Contact Referred To Contact Gastroenterology Diagnoses Primary malignant neuroendocrine neoplasm of duodenum (CMS/HCC) Procedures EGD MI ESOPHAGOGASTRODUODENOSCOPY TRANSORAL DIAGNOSTIC MI EGD TRANSORAL BIOPSY SINGLE/MULTIPLE Jazlyn Mcarthur TRUSS PULLER HELPER-TRACK REPAIR PERSON [address] [address] [facility] [place]ology [place] [address] Referral ID Status Reason Start Date Expiration Date V isits Requested Visits Authorized [id number] Pending Review 05/19/2023 05/18/2024 1 1 Reason Comments New Med Request Specialty Diagnoses / Procedures Referred By William t Referred To Contact Radiology Diagnoses Exam for clinical trial Procedures US COMPARISON OF OUTSIDE FILMS Ky Justice PA-C [address] [place] [address] Referral ID Status Reason Start Date Expiration Date V isits Requested Visits Authorized [id number] Pending Review 07/28/2023 07/27/2024 1 1 Care Teams (unrecognized sec tion and content) Rn Mobile Relationship Specialty Start Date End Date Renea Ying DO [address] [place] [address] PCP - General Family Medicine 05/26/23 Rn Mobile Relationship Specialty Start Date End Date Renea Ying DO [address] [place] [address] PCP - General Family Medicine 05/26/23 Rn Mobile Relationship Specialty Start Date End Date Renea Ying DO [address] [place] [address] PCP - General Family Medicine 05/26/23 Rn Mobile Relationship Specialty Start Date End Date Shaikh Ayala MD [address] [place] [id number] PCP - General Internal Medicine 07/15/23 Rn Mobile Relationship Specialty Start Date End Date Shaikh Ayala MD [address] [place] [phone] PCP - General Internal Medicine 07/15/23 FOR RECORDS PERTAINING TO PATIENTS WHO ARE [...] BE BASED ON THE PRIMARY CLINICAL RECORDS. [facility]. provides no warranty or guarantee of the accuracy or completeness of information in this document.
--- NOTE | 2023-07-31 16:58 | XR_ITS ---
The [address] [address] Patient Name: YUSEF MELGAR MRN: [id number] date: 1950 Sex: M Assigned Patient Location: ER Current Patient Location: ER Accession/Order Number: [id number] Exam Date: 07/31/2023 17:06 Report Date: 07/31/2023 17:47 At the request of: INO LANDERS Procedure: XR chest 1V EXAM: XR chest 1V HISTORY: cp COMPARISON: 07/08/2023 TECHNIQUE: Chest X-ray AP, 1 view FINDINGS: Support devices: None. Lungs/pleura: No consolidation, effusion, or pneumothorax. Heart and mediastinum: Normal contours. Bones: No acute abnormality identified. XR/XR chest 1V Impression: No radiographic evidence of acute cardiopulmonary process. Electronically authenticated by: MYRANDA GRAMAJO Date: 07/31/2023 17:47
--- NOTE | 2023-07-31 16:58 | ECG_ITS ---
The [facility] Test Date: 2023-07-31 Pat Name: YUSEF MELGAR Department: Room: - Gender: Male Scleroscope Tester: : 1950 Requested By: SHAIKH NADIA Order Number: [id number] Reading MD: PAM GARZA Measurements Intervals [place] Rate: 60 P: 16 DE: 218 QRS: -20 QRSD: 94 T: 27 QT: 428 QTc: 429 Interpretive Statements 1100 Sinus rhythm 1973 with frequent ectopic premature complexes 2231 First degree AV block [address] depression 5222 Moderate voltage criteria for LVH, may be normal variant 9150 abnormal ECG Electronically Signed On 08-01-2023 7:32:46 EST by PAM GARZA
--- NOTE | 2023-07-31 17:05 | ED_ITS ---
HPI - General Adult General Chief complaint: Chest Pain Stated complaint: BACK PAIN/CP Time Seen by Provider: 07/31/23 16:56 Source: patient Mode of arrival: ambulance History of Present Illness HPI narrative: Patient is a 73-year-old male who is presenting to the Emergency Room with chief complaint of having severe periiumbilical pain admitted to the [facility], up until a sinus check him at the upper back. Patient states he's never had pain like this before, patient has told me this 3 times. Patient's said that he's never had pain like this before as well. However when EMS was called, patient was given 4 baby aspirin that he believes relieved his pain. Patient was also given 1 nitroglycerin that helped relieve the pain a little bit more and patient was pain-free when he arrived to the Emergency Room. Patient just had a cardiac catheter on Thursday they stated his coronary arteries looked very clean and healthy no acute issues. Patient stated that he had lunch, then had 2 pieces of pizza, there was not that spicy. Patient then states 1.5 hours later he started having his symptoms. Patient during H and P and physical exam is pain-free. Patient has no history or any type of aortic pathology. . All systems are negative except as noted/marked. All systems reviewed and otherwise negative. . Nurses note and vital signs reviewed and patient is not hypoxic. General: The patient appears well and in no apparent distress. Patient is resting comfortably on cart. Patient is not toxic, lethargic, or listless Skin: Warm, dry, no pallor noted. There is no rash noted. No petechiae, purpura. Head: Normocephalic, atraumatic Eye: Normal conjunctiva, no drainage, EOMI. PERRL Ears, Nose, Mouth, and Throat: oral mucosa is moist. Nares patent. Mouth without vesicles. Cardiovascular: Regular Rate and Rhythm, no murmur, gallop, rub Respiratory: Patient is in no distress, no accessory muscle use, lungs are clear to auscultation, no wheezing, rales or rhonchi Back: non-tender, no CVA tenderness bilaterally to percussion. No CT LS midline pain GI: soft, no tenderness to palpation, no masses appreciated. No rebound, guarding, or rigidity noted. No flank pain bilateral, No distention Musculoskeletal: Patient has full range of motion of all of the extremities, no motor, sensory, or focal neurological deficits Neurological: A&O x3, normal speech Psychiatric: Cooperative Related Data Home Medications Medication Instructions Recorded Confirmed allopurinol 300 mg tablet 300 mg PO DAILY 07/09/23 07/10/23 amlodipine 10 mg tablet 10 mg PO DAILY 07/09/23 07/10/23 fluticasone propionate 50 1 spray intranasal DAILY PRN 07/09/23 07/10/23 mcg/actuation nasal allergy symptoms spray,suspension (24 Hour Allergy Relief) furosemide 20 mg tablet 20 mg PO DAILY 07/09/23 07/10/23 losartan 100 mg tablet 100 mg PO DAILY 07/09/23 07/10/23 omeprazole 40 mg capsule,delayed 40 mg PO DAILY 07/09/23 07/10/23 release pioglitazone 30 mg tablet 30 mg PO DAILY 07/09/23 07/10/23 rosuvastatin 10 mg tablet 10 mg PO DAILY 07/09/23 07/10/23 Previous Rx's Medication Instructions Recorded bisoprolol fumarate 10 mg tablet 10 mg PO DAILY #30 tabs 07/10/23 Allergies Allergy/AdvReac Type Severity Reaction Status Date / Time ciprofloxacin [From Cipro] Allergy Severe Verified 07/09/23 14:36 erythromycin base Allergy Severe Verified 07/09/23 14:36 lisinopril Allergy Severe Verified 07/09/23 14:36 [facility] Medical History Bradycardia with 31-40 beats per minute ?R00.1 - Bradycardia, unspecified (ICD-10) Paroxysmal cardiac arrhythmia ?I49.8 - Other specified cardiac arrhythmias (ICD-10) Dizziness ?R42 - Dizziness and giddiness (ICD-10) Edema ?R60.9 - Edema, unspecified (ICD-10) Gout ?M10.9 - Gout, unspecified (ICD-10) Rotator cuff injury ?S46.009A - Unspecified injury of muscle(s) and tendon(s) of the rotator cuff of unspecified shoulder, initial encounter (ICD-10) Surgical History FH: cholecystectomy ?Z83.79 - Family history of other diseases of the digestive system (ICD-10) History of appendectomy ?Z90.49 - Acquired absence of other specified parts of digestive tract (ICD- 10) Family History Father Family history of cancer Family history of diabetes mellitus Family history of hypertension Mother Family history of cancer Family history of hypertension Social History Within the past year, how often did you have a drink containing alcohol: never Score interpretation: A score less than 4 is consistent with normal alcohol consumption. Smoking status: Former smoker Non-prescribed substance use: denies use Previous occupational history: retired Highest level of school completed/degree received: some college, no degree Are you now , , , , never or living with a partner: In a typical week, how many times do you talk on the telephone with family, friends, or neighbors: 3 or more times per week How often do you get together with friends or relatives: 3 or more times per week How often do you attend confucianist or muslim services: never Little interest or pleasure in doing things: not at all Feeling down, depressed, or hopeless: not at all Feel stressed/tense/nervous/anxious/difficulty sleeping: not at all Do you think of yourself as: straight/heterosexual Gender Identity: male Exam Constitutional Vital Signs, click to edit/add: Last Vital Signs Temp 98.0 F 07/31/23 16:32 Pulse 63 07/31/23 16:32 Resp 22 07/31/23 16:32 BP 126/94 H 07/31/23 16:32 Pulse Ox 99 07/31/23 16:32 O2 Del Method Room Air 07/31/23 16:32 Course Vital Signs Vital signs: Vital Signs Temperature 98.0 F 07/31/23 16:32 Pulse Rate 63 07/31/23 16:32 Respiratory Rate 22 07/31/23 16:32 Blood Pressure 126/94 H 07/31/23 16:32 Pulse Oximetry 99 07/31/23 16:32 Oxygen Delivery Method Room Air 07/31/23 16:32 Temperature 98.0 F 07/31/23 16:32 Pulse Rate 63 07/31/23 16:32 Respiratory Rate 22 07/31/23 16:32 Blood Pressure 126/94 H 07/31/23 16:32 Pulse Oximetry 99 07/31/23 16:32 Oxygen Delivery Method Room Air 07/31/23 16:32 Medical Decision Making MDM Narrative Medical decision making narrative: Patient's EKG and chest x-ray showed no acute findings. Patient labwork was negative. Patient just had a cardiac catheter on Thursday that showed no acute pathology, patient was told by the technical sales associate that his arteries in his heart look extremely clean. Patient has not had a constant ripping, tearing sensation going straight through from his chest to his back. Patient states that he felt weak in his muscles and slight chills for no underlying reason. However when patient arrived, he did not have these sensations. Patient does not want to remain for a 2nd troponin, patient went to go home. Patient just had a cardiac catheter on Thursday to looks very well. Patient was ambulated in the fam and had no difficulty with weakness, lightheaded, dizziness, patient had no pain or symptoms with ambulation prior to discharge. Patient feels safe going home, patient will follow-up with cardiology as needed. No questions at discharge. Patient did not want to wait for 2nd troponin is recommended There was a very safe option, he feels safe going home after initial set of studies were negative. Lab Data Labs: Lab Results 07/31/23 Range/Units 16:40 WBC 7.9 (4.0-11.0) 10^3/uL RBC 4.24 L (4.70-6.10) 10^6/uL Hgb 12.2 L (14.0-18.0) g/dL Hct 38.5 L (42.0-54.0) % MCV 90.8 (80.0-94.0) fL MCH 28.8 (25.9-34.0) pg MCHC 31.7 (29.9-35.2) g/dL RDW 15.3 H (11.0-15.0) % Plt Count 352 (150-450) 10^3/uL MPV 10.6 (9.5-13.5) fL Neut % (Auto) 71.5 (43.0-75.0) % Lymph % (Auto) 17.2 L (20.5-60.0) % [place] % (Auto) 9.6 (1.7-12.0) % Eos % (Auto) 1.1 (0.9-7.0) % Baso % (Auto) 0.3 (0.2-2.0) % Neut # (Auto) 5.6 (1.4-6.5) 10^3/uL Lymph # (Auto) 1.4 (1.2-3.8) 10^3/uL C[place]ay # (Auto) 0.8 (0.3-0.8) 10^3/uL Eos # (Auto) 0.1 (0.0-0.7) 10^3/uL Baso # (Auto) 0.0 (0.0-0.1) 10^3/uL Abs Immat Gran (auto) 0.02 (0.00-0.03) 10^3/uL Imm/Tot Granulo (auto) 0.3 (0.0-0.5) % Sodium 142 (136-145) mmol/L Potassium 4.2 (3.5-5.1) mmol/L Chloride 106 (98-107) mmol/L Carbon Dioxide 28.1 (21.0-32.0) mmol/L Anion Gap 12.1 BUN 22.0 H (7.0-18.0) mg/dL Creatinine 1.38 H (0.70-1.30) mg/dL Est GFR ( Amer) >60 (>=60) Est GFR (Non-Af Amer) 50 L (>=60) BUN/Creatinine Ratio 15.9 Glucose 130 H (74-106) mg/dL Calcium 9.2 (8.5-10.1) mg/dL Total Bilirubin 0.4 (0.2-1.0) mg/dL AST 33 (15-37) U/L ALT 25 (16-63) U/L Alkaline Phosphatase 126 H (46-116) U/L Troponin I High Sens 10.6 (4.0-76.1) pg/mL NT-Pro-B Natriuret Pep 748.0 (<=900.0) pg/mL Total Protein 7.1 (6.4-8.2) g/dL Albumin 3.3 L (3.4-5.0) g/dL Globulin 3.8 g/dL Albumin/Globulin Ratio 0.9 ECG Data Attestation: I personally reviewed and interpreted this ECG as follows: (EKG interpretation. Baseline normal sinus rhythm at 60 beats a minute. PVC noted. MO 218, first-degree AV block. QTc of 429. Underlying sinus arrhythmia compared EKG to July 09, 2023. Similar EKG findings today) Discharge Plan Discharge Chief Complaint: Chest Pain Clinical Impression: Palpitations, Dyspnea, Midepigastric pain, Chest pain Patient Disposition: Home, Self-Care Condition: Good Prescriptions / Home Meds: No Action bisoprolol fumarate 10 mg tablet 10 mg PO DAILY Qty: 30 0RF allopurinol 300 mg tablet 300 mg PO DAILY amlodipine 10 mg tablet 10 mg PO DAILY furosemide 20 mg tablet 20 mg PO DAILY losartan 100 mg tablet 100 mg PO DAILY omeprazole 40 mg capsule,delayed release(DR/EC) 40 mg PO DAILY pioglitazone 30 mg tablet 30 mg PO DAILY rosuvastatin 10 mg tablet 10 mg PO DAILY fluticasone propionate [24 Hour Allergy Relief] 50 mcg/actuation spray,suspension 1 spray intranasal DAILY PRN (Reason: allergy symptoms) Rx Instructions: administer into each nostril Instructions: Chest Pain (ED), Heart Palpitations (ED), Abdominal Pain (ED), Dyspnea (ED) Additional Instructions: Any other acute concerns, follow-up with [facility]. Continue wearing your continuous monitor. Continue medication as prescribed Stand Alone Forms: Portal Instructions Referrals: Shaikh Ayala MD [Primary Care Provider] - 1 week Discharge Date/Time: 07/31/23 18:57
[2023-07-31] MEDS: 0.9 % SODIUM CHLORIDE 1,000 ML 1000 ML IV (17:06)
[2023-07-31 17:08] LABS: Basophils Percent Auto 0.3 % (0.2-2.0); Eosinophils Absolute Auto 0.1 10^3/uL (0.0-0.7); Eosinophils Percent Auto 1.1 % (0.9-7.0); Hematocrit 38.5 % (42.0-54.0); Hemoglobin 12.2 g/dL (14.0-18.0); Immature Granulocytes Abs Auto 0.02 10^3/uL (0.00-0.03); Immature Granulocytes Pct Auto 0.3 % (0.0-0.5); Lymphocytes Absolute Auto 1.4 10^3/uL (1.2-3.8); Lymphocytes Percent Auto 17.2 % (20.5-60.0); Mean Corpuscular HGB Conc 31.7 g/dL (29.9-35.2); Mean Corpuscular Hemoglobin 28.8 pg (25.9-34.0); Mean Corpuscular Volume 90.8 fL (80.0-94.0); Mean Platelet Volume 10.6 fL (9.5-13.5); Monocytes Absolute Auto 0.8 10^3/uL (0.3-0.8); Monocytes Percent Auto 9.6 % (1.7-12.0); Neutrophils Absolute Auto 5.6 10^3/uL (1.4-6.5); Neutrophils Percent Auto 71.5 % (43.0-75.0); Platelet Count 352 10^3/uL (150-450); Red Blood Count 4.24 10^6/uL (4.70-6.10); Red Cell Distribution Width 15.3 % (11.0-15.0); White Blood Count 7.9 10^3/uL (4.0-11.0)
[2023-07-31 17:27] LABS: Alanine Aminotransferase 25 U/L (16-63); Albumin Globulin Ratio 0.9; Albumin Level 3.3 g/dL (3.4-5.0); Alkaline Phosphatase 126 U/L (46-116); Anion Gap 12.1; Aspartate Amino Transferase 33 U/L (15-37); BUN Creatinine Ratio 15.9; Bilirubin Total 0.4 mg/dL (0.2-1.0); Calcium 9.2 mg/dL (8.5-10.1); Carbon Dioxide 28.1 mmol/L (21.0-32.0); Chloride 106 mmol/L (98-107); Estimated GFR (African America >60 (>=60); Estimated GFR (Non-African Ame 50 (>=60); Globulin 3.8 g/dL; Glucose 130 mg/dL (74-106); Potassium 4.2 mmol/L (3.5-5.1); Sodium 142 mmol/L (136-145); Total Protein 7.1 g/dL (6.4-8.2); Troponin I High Sensitivity 10.6 pg/mL (4.0-76.1)
== END 2023-07-31 18:57 | disposition home or self-care (01) ==
PROVIDERS: Emergency Provider Emergency Medicine; PCP Internal Medicine
DX: R07.9 Chest pain, unspecified (principal); R10.13 Epigastric pain; R00.2 Palpitations; R06.00 Dyspnea, unspecified; Z90.49 Acquired absence of other specified parts of digestive tract; M10.9 Gout, unspecified; Z79.899 Other long term (current) drug therapy
CPT/HCPCS: 36415; 71045; 80053; 83880; 84484; 85025; 93005; 99285

== ENCOUNTER 2023-08-12 08:09 | Outpatient (OUT) | payer MEDICARE, OTHER, SELFPAY ==
--- OUTSIDE RECORDS SUMMARY | 2023-08-12 08:14 | XMS_ITS | CCD ---
Author Name Unknown Address [address] [place] [address] Organization [facility] Care Team Providers Care Shearing Machine Feeder Name Role Phone PHYSICIAN, DEFAULT Admitting Unavailable PHYSICIAN, DEFAULT Attending Unavailable Vanessa Steele Unavailable [phone] Unavailable Unavailable CEDRIC, DR MENDEZ Primary Care Unavailable DONNA, DR HURLEY Consulting Unavailable DONNA, DR HURLEY Procedure Practitioner Unava ilable SHAIKH AYALA Admitting Unavailable SHAIKH AYALA Attending Unavailable ROS, [...] HURLEY Attending Unavailable CONCEPCION GEORGE Consulting Unavailable ROSIPKOELIUIN Consulting Unavailable Dr. Neftali Knowles Admitting Unavailable Benson, Dr. Neftali Cormier Attending Unavailable Vanessa Steele Primary Care Unavailabl e Petek, Ms. Lawson Attending Unavailable Rostocil, Ms. Jorge Referring Unavailable Vanessa Steele Primary Care Unavailabl e Petamina, Ms. Lawson Attending Unavailable Vanessa Steele Primary Care Unavailabl e Vanessa Steele Referring Unavailabl e Mohpamela, Dr. Neftali Cormier Admitting Unavailable Mohpamela, Dr. Neftali Cormier Attending Unavailable Benson, Dr. Neftali Cormier Admitting Unavailable Mohamed, Dr. Neftali Cormier Attending Unavailable Xavi Thompson Referring Unavailable Vanessa Steele Primary Care Unavailmayank Knowles, Neftali Attending Unavailable Dinary, Fazel Admitting Unavailable Dinary, Fazel Attending Unavailable Cedric, Dr. Vanessa Whitley Referring Unavai lable Stepan DO, Renea G Primary Care Provider [phone] JAZLYN MCARTHUR Referring Unavailable STEPAN, RENEA G Primary Care Unavailable SAM PADILLA Attending Unavailable MURUMBAJAZLYN N Referring Unavailable STEPAN, RENEA G Primary Care Unavailable STEPAN, RENEA G Attending Unavailable BRONWYNWWASHAIKH Hawkins Attending Unavailable NEFTALI STARR Attending Unavailab liang Ayala MD, [facility] Primary Care Provider Unavailable Primary Care Provider UnavailMaribeth Celeste Attending Unavailable STEPAN, RENEA Referring Unavailable ELTAHAWY, EHAB Referring Unavailable ELTAHAWY, EHAB Admitting Unavailable ELTAHAWY, EHAB Attending Unavailable FERMINKODILLON, GRACE Referring Unavailable FAWSHAIKH KAY Primary Care Unavailable Allergies Allergy Classification Reported Allergen(s) Allergy Type Date of Onset Reaction(s) Facility Angiotensin Converting Enzyme (GODWIN) Inhibitors (3 sources) Lisinopril; Translations: [Lisinopril TABS] [facility]: Quinolones (antibiotic) (3 sources) Ciprofloxacin; Translations: [ciprofloxacin] Drug Allergy [facility] Work Phone: (19 sources) Ciprofloxacin; Translations: [ciprofloxacin] Drug Allergy 3 Unknown, Other [facility] (14 sources) Lisinopril; Translations: [Lisinopril TABS] Drug Allergy 3 Unknown, Cough MG-Gastroente [facility] DO Work Phone: (4 sources) Amino Acids; Translations: [LISINOPRIL] Drug Allergy 1 [facility] Repository (1 source) Ciprofloxacin Drug Allergy [facility] (1 source) Erythromycin Drug Allergy [facility] (6 sources) Erythromycin; Translations: [ERYTHROMYCIN] Drug Allergy 3 Unknown, GI bleeding [facility] Work Phone: (3 sources) Azithromycin; Translations: [AZITHROMYCIN] Drug Allergy 8 [facility] Healthcare (2 sources) Lisinopril Allergy to substance 3 Cough [facility] Healthcare Medications Current Medications Medication Drug Class(es) [...] Sodium-Glucose Cotransporter 2 Inhibitor Start: 07-20-2023 End: 05-05-2024 take 1 tablet by mouth in the morning Farxiga 10 MG Indications: Stage 3a chronic kidney disease (HCC) ([facility]) Take 1 tablet (10 mg) by mouth in the morning. 90 tablet 0 07/20/2023 07/30/2023 Discontinued (Cost of medication) empagliflozin 25 mg oral tablet (1 source) Sodium-Glucose Cotransporter 2 Inhibitor Start: 07-30-2023 End: 10-28-2023 take 1 tablet by mouth in the morning empagliflozin (Jardiance) 25 MG Indications: Stage 3a chronic kidney disease (HCC) ([facility]) , Type 2 diabetes mellitus with stage 3a chronic kidney disease, without long-term current use of insulin (HCC) ([facility]) Take 1 tablet (25 mg) by mouth [...] (Lasix) 20 MG tablet Indications: Primary hypertension ([facility]) Take 1 tablet (20 mg) by mouth [...] disease (2 sources) 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; Translations: [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] Onset: 07-27-2023 [...] 11-28-2020 Chronic Other aftercare (1 source) Other terminal operator (current) drug therapy; Translations: [OTH SENIOR CARE CURRENT DRUG THERAPY] Onset: 06-12-2021 Episodic Other [...] SEPSIS] Onset: 06-12-2021 Episodic Syncope (4 sources) Near syncope; Translations: [Syncope and collapse] Onset: 07-10-2023 07-15-2023 Episodic Unclassified (1 source) CONTACT W/AND (SUSP) [...] Onset: 12-12-2020 Episodic Other aftercare (2 sources) skilled nursing (current) use of oral hypoglycemic drugs; Translations: [EXECUTIVE MEETING MANAGER USE ORAL HYPOGLYCEMIC DX] Onset: 12-12-2020 Episodic [...] Test Name Value Interpretation Reference Range Facility Culture, Urineon 07-31-2023 NV - URINE CULTURE No growth Normal [facility] Comment on above: Order Comment: NV - Source of Urine Collection? Urine clean catch\[id number]\Performed by [facility] [address] [place] [address] NV - Source of Urine Collection? Urine clean catch NV - Current Antibiotic Therapy? No Answer Given Specify (ex-cath, midstream, cysto, etc)?->midstream Performed By: #### C UR #### Message Bus [facility] See Report URINE CULTUREon 07-31-2023 Bacteria identified Cx Nom (U) MICROBIOLOGY REPORT [facility], [address], [place], [address] PATIENT: YUSEF CAR LOCATION: [facility] - - : 1950 AGE: 73 SEX: M ADM: 07/31/23 Att. Physician: PHYSICIAN, NON-STAFF Order Id: [id number] Req. Physician: PHYSICIAN, NON-STAFF Source: urine, clean catch Site: Collected: 07/31/23 11:50 Current Antibiotics: not stated Antibiotics comment: - Slime Joyner S NV - Source of Urine Collection? Urine clean catch STATUS OF ORDERED AND REPORTED TESTS URINE CULTURE FINAL 08/02/23 URINE CULTURE FINAL 08/02/23 07:56 08/01/23 No growth-preliminary 08/02/23 No growth Normal [facility] Urinalysis Completeon 2023 BACT None Seen Normal [facility] Comment on above: Performed By: #### U COMP #### [place] [address] Ph. [phone] UBIL Negative Normal Negative [facility] Comment on above: Performed By: #### U COMP #### [place] [address] Ph. [phone] UBLO Negative Normal Negative [facility] Comment on above: Performed By: #### U COMP #### [place] [address] Ph. [phone] UCLAR Clear Normal [facility] Comment on above: Performed By: #### U COMP #### [address] [address] Ph. [phone] UCOL Yellow Normal [facility] Comment on above: Performed By: #### U COMP #### [address] [address] Ph. [phone] UGLU Negative Normal Negative [facility] Comment on above: Performed By: #### U COMP #### [address] [address] Ph. [phone] UKET Negative Normal Negative [facility] Comment on above: Performed By: #### U COMP #### [address] [address] Ph. [phone] ULEU Negative Normal Negative [facility] Comment on above: Performed By: #### U COMP #### [address] [address] Ph. [phone] UNIT Negative Normal Negative [facility] Comment on above: Performed By: #### U COMP #### [address] [address] Ph. [phone] UPH 6.0 Normal 5.0-7.0 [facility] Comment on above: Performed By: #### U COMP #### [address] [address] Ph. [phone] UPRO Negative Normal Negative [facility] Comment on above: Performed By: #### U COMP #### [address] [address] Ph. [phone] URBC None Seen Normal [facility] Comment on above: Performed By: #### U COMP #### [address] [address] Ph. [phone] USG 1.010 Normal 1.005-1.03 0 [facility] Comment on above: Performed By: #### U COMP #### [place] [address] [place] [address] Ph. [phone] UURO 0.2 E.U./dL Normal <2.0 [facility] Comment on above: Performed By: #### U COMP #### [place] [address] [place] [address] Ph. [phone] UWBC None Seen Normal [facility] Comment on above: Performed By: #### U COMP #### [address] [address] Ph. [phone] Study Interpretation of outs jeanna studyon 07-28-2023 There is no result f or this study. This is a placeholder for comparison films only. [facility] US COMPARISON OF OUTSIDE BRYANT MSon 07-28-2023 US COMPARISON OF OUTSIDE FILMS RADRPT There is no result for this study. This is a placeholder for comparison films only. Final result Normal [facility] ANESon 07-27-2023 ANES ----- ----- Attestation signed by Erin Armstrong MD at 07/27/2023 8:32 AM Erin Armstrong MD, MPH, [facility], [facility], [facility] Interventional Cardiology Pager Email: [email or web address] ----- Patient: Yusef Car Procedure Information Date/Time: 07/27/23 1130 Procedures: Coronary angiography - Lt and CORS, recently admit to [facility]- Near syncope, NSVT, chest pain Right heart cath Location: [facility] / [facility] (Cath) Providers: Erin Armstrong MD Clinical information reviewed: Allergies Meds Physical Exam Airway Mallampati: III TM distance: >3 FB Cardiovascular Rhythm: regular Dental Pulmonary Abdominal Anesthesia Plan ASA 3 Anesthetic plan and risks discussed with patient. Use of blood products discussed with patient who. Plan discussed with attending. Additional Equipment Requests Normal [facility] HPon 07-27-2023 HP ----- ----- Attestation signed [...] Respiratory Denies: shortness of breath or cough [facility] Medical History Bradycardia with 31-40 beats per minute R00.1 - Bradycardia, unspecified (ICD-10) Health Information Management [facility] 2 Patient name: YUSEF CAR Paroxysmal cardiac [...] per week How often do you attend mu-ism or taoist services: never Little interest or pleasure in doing things: not at all Feeling down, depressed, or hopeless: not at all Feel stressed/tense/nervous/an xious/difficulty sleeping: not at all Do you think of yourself as: straight/heterosexual Gender Identity: male Meds Health Information Management [facility] 3 Patient name: YUSEF CAR Home Medications [...] and aurora (more content not included)... Normal [facility] NURSNOTEon 07-27-2023 NURSNOTE RN educated pt on d/ c instructions. RN encouraged pt to voice any questions or concerns. Pt verbalizes no questions or concerns at this time. Pt was wheeled off of unit with all of belongings. Normal [facility] POCT GLUCOSE METER UNSOLICIT ED RESULTSon 07-27-2023 Glucose [Mass/Vol] 130 mg/dL High 70-105 [facility] Comment on above: Order Comment: Waive d Testing in the ED is performed under the ED CLIA certificate #[id number]. Result Comment: rupal [id number] Performed By: #### L [id number] #### [facility] ([facility]) [address] [place] [address] HPon 07-15-2023 HP Formatting of this n ote is different from the original. Subjective Patient ID: Yusef Car is a 73 y.o. male who presents for Establish Care. Recent hospital admission at [facility]. Abnormal Nuclear stress test. [facility]uled [facility] Jul. Asmptomatic currently. Current Outpatient [...] to start using ASA. Patient scheduled for LHC on 07/29/23 No prior hx of CAD [...] and updated medication (more content not included)... [facility] Orders Onlyon 07-10-2023 Orders Only [id number] Nika Car ert 1950 M Date Provider Department Center 07/10/2023 Merna-LATANYA [place] [facility]. No family history on file [facility] EGDon 06-10-2023 Esophagogastroduodenosco py Table formatting from the original result was not included. [facility] EGD Study observation Narrat iveon 06-10-2023 Table formatting fro m the original [...] Mayelin Page 06/10/2023 0859 Procedure Location [facility] [id number] [place] [id number] Referring Provider Jazlyn Mcarthur, Nursing Staffing Coordinator-caustic cresylate shift superintendent [address] [place] [place] [address] Procedure Provider Sam Padilla MD [facility] Work Phone: [facility] Work Phone: Radiology Study observation (narrative) [facility] Work Phone: Glucose Test strip manual (B ld) [Mass/Vol]on 06-10-2023 Glucose [Mass/Vol] 113 mg/dL High 74-99 [facility] Comment on above: Performed By: #### 2 341-6 #### OLIMPIA WARE ([id number]) [facility] ([facility]) [address] [place] [address] Glucose [Mass/Vol] 113 mg/dL High 74 - 99 mg/dL [facility] Interpretation and review of laboratory results Abnormal [facility] Surgical pathology studyon 1 08-11-2022 Surgical pathology study Pathology repor t.total SEE COMMENT Surgical Pathology Case: [id number] Authorizing Provider: Sam Padilla MD Collected: 06/10/2023 0859 Ordering Location: [facility] Received: 06/10/2023 0920 Pathologist: Chucho Santacruz MD [...] is submitted in toto in one cassette. 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 COMPARISON: CT abdomen 12/25/2020 ACCESSION NUMBER(S): [id number] ORDERING CLINICIAN: JAZLYN MCARTHUR TECHNIQUE: Contiguous axial [...] scans. 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 COMPARISON: CT abdomen 12/25/2020 ACCESSION NUMBER(S): [id number] ORDERING CLINICIAN: JAZLYN MCARTHUR TECHNIQUE: Contiguous axial [...] Juanjose Walters 05/27/2023 11:47 AM Dictation workstation: [id number] Normal [facility] CT Chest and Abdomen and Pel vis W contrast Kristie 05-26-2023 Radiology Study observation (narrative) [facility] Work Phone: CBC W Auto Differential pane l (Bld)on 05-22-2023 Basophils (Bld) [#/Vol] 0.04 x10*3/uL Normal 0.00-0.10 [facility] Comment on above: Performed By: #### 5 7021-8 #### OLIMPIA WARE ([id number]) [facility] ([facility]) [address] [place] [address] Basophils/100 WBC (Bld) 0.5 % Normal 0.0-2.0 [facility] Comment on above: Performed By: #### 5 7021-8 #### OLIMPIA WARE ([id number]) [facility] ([facility]) [address] [place] [address] Eosinophils (Bld) [#/Vol] 0.09 x10*3/uL Normal 0.00-0.40 [facility] Comment on above: Performed By: #### 5 7021-8 #### OLIMPIA WARE ([id number]) [facility] ([facility]) [address] [place] [address] Eosinophils/100 WBC (Bld) 1.0 % Normal 0.0-6.0 [facility] Comment on above: Performed By: #### 5 7021-8 #### OLIMPIA WARE ([id number]) [facility] ([facility]) [address] [place] [address] Erythrocyte distribution width (RBC) [Ratio] 15.3 % High 11.5-14.5 [facility] Comment on above: Performed By: #### 5 7021-8 #### OLIMPIA WARE ([id number]) [facility] ([facility]) [address] [place] [address] Hematocrit (Bld) [Volume fraction] 40.4 % Low 41.0-52.0 [facility] Comment on above: Performed By: #### 5 7021-8 #### OLIMPIA WARE ([id number]) [facility] ([facility]) [address] [place] [address] Hemoglobin (Bld) [Mass/Vol] 12.7 g/dL Low 13.5-17.5 [facility] Comment on above: Performed By: #### 5 7021-8 #### OLIMPIA WARE ([id number]) [facility] ([facility]) [address] [place] [address] Immature granulocytes (Bld) [#/Vol] 0.04 x10*3/uL Normal 0.00-0.50 [facility] Comment on above: Performed By: #### 5 7021-8 #### OLIMPIA WARE ([id number]) [facility] ([facility]) [address] [place] [address] Immature granulocytes/100 WBC (Bld) 0.5 % Normal 0.0-0.9 [facility] Comment on above: Result Comment: Halima ture Granulocyte Count (IG) includes promyelocytes, myelocytes and metamyelocytes but does not include bands. Percent differential counts (%) should be interpreted in the context of the absolute cell counts (cells/UL). Performed By: #### 5 7021-8 #### OLIMPIA WARE ([id number]) [facility] ([facility]) [address] [place] [address] Lymphocytes (Bld) [#/Vol] 1.47 x10*3/uL Normal 0.80-3.00 [facility] Comment on above: Performed By: #### 5 7021-8 #### OLIMPIA WARE ([id number]) [facility] ([facility]) [address] [place] [address] Lymphocytes/100 WBC (Bld) 17.0 % Normal 13.0-44.0 [facility] Comment on above: Performed By: #### 5 7021-8 #### OLIMPIA WARE ([id number]) [facility] ([facility]) [address] [place] [address] MCH (RBC) [Entitic mass] 28.5 pg Normal 26.0-34.0 [facility] Comment on above: Performed By: #### 5 7021-8 #### OLIMPIA WARE ([id number]) [facility] ([facility]) [address] [place] [address] MCHC (RBC) [Mass/Vol] 31.4 g/dL Low 32.0-36.0 [facility] Comment on above: Performed By: #### 5 7021-8 #### OLIMPIA WARE ([id number]) [facility] ([facility]) [address] [place] [address] MCV (RBC) [Entitic vol] 91 fL Normal 80-100 [facility] Comment on above: Performed By: #### 5 7021-8 #### OLIMPIA WARE ([id number]) [facility] ([facility]) [address] [place] [address] Monocytes (Bld) [#/Vol] 0.54 x10*3/uL Normal 0.05-0.80 [facility] Comment on above: Performed By: #### 5 7021-8 #### OLIMPIA WARE (80021) [facility] ([facility]) [address] [place] [address] Monocytes/100 WBC (Bld) 6.2 % Normal 2.0-10.0 [facility] Comment on above: Performed By: #### 5 7021-8 #### OLIMPIA WARE ([id number]) [facility] ([facility]) [address] [place] [address] Neutrophils (Bld) [#/Vol] 6.48 x10*3/uL High 1.60-5.50 [facility] Comment on above: Result Comment: Perc ent differential counts (%) should be interpreted in the context of the absolute cell counts (cells/uL). Performed By: #### 5 7021-8 #### OLIMPIA WARE (62013) [facility] ([facility]) [address] [place] [address] Neutrophils/100 WBC (Bld) 74.8 % Normal 40.0-80.0 [facility] Comment on above: Performed By: #### 5 7021-8 #### OLIMPIA WARE (57264) [facility] ([facility]) [address] [place] [address] Nucleated RBC/100 WBC (Bld) [Ratio] 0.0 /100 WBCs Normal 0.0-0.0 [facility] Comment on above: Performed By: #### 5 7021-8 #### OLIMPIA WARE ([id number]) [facility] ([facility]) [address] [place] [address] Platelets (Bld) [#/Vol] 403 x10*3/uL Normal 150-450 [facility] Comment on above: Performed By: #### 5 7021-8 #### OLIMPIA WARE (47891) [facility] ([facility]) [address] [place] [address] RBC (Bld) [#/Vol] 4.46 x10*6/uL Low 4.50-5.90 [facility] Comment on above: Performed By: #### 5 7021-8 #### OLIMPIA WARE ([id number]) [facility] ([facility]) [address] [place] [address] WBC (Bld) [#/Vol] 8.7 x10*3/uL Normal 4.4-11.3 [facility] Comment on above: Performed By: #### 5 7021-8 #### OLIMPIA WARE ([id number]) [facility] ([facility]) [address] [place] [address] Comprehensive metabolic 2000 panelon 05-22-2023 Albumin BCP dye [Mass/Vol] 4.1 g/dL Normal 3.4-5.0 [facility] Comment on above: Performed By: #### 2 4323-8 #### OLIMPIA WARE (31302) [facility] ([facility]) [address] [place] [address] ALP [Catalytic activity/Vol] 73 U/L Normal 33-136 [facility] Comment on above: Performed By: #### 2 4323-8 #### OLIMPIA WARE ([id number]) [facility] ([facility]) [address] [place] [address] ALT With P-5'-P [Catalytic activity/Vol] 8 U/L Low 10-52 [facility] Comment on above: Result Comment: Kanwal ents treated with Sulfasalazine may generate falsely decreased results for ALT. Performed By: #### 2 4323-8 #### OLIMPIA WARE ([id number]) [facility] ([facility]) [address] [place] [address] Anion gap [Moles/Vol] 12 mmol/L Normal 10-20 [facility] Comment on above: Performed By: #### 2 4323-8 #### OLIMPIA WARE ([id number]) [facility] ([facility]) [address] [place] [address] AST With P-5'-P [Catalytic activity/Vol] 10 U/L Normal 9-39 [facility] Comment on above: Performed By: #### 2 4323-8 #### OLIMPIA WARE ([id number]) [facility] ([facility]) [address] [place] [place] [address] Bilirubin [Mass/Vol] 0.6 mg/dL Normal 0.0-1.2 [facility] Comment on above: Performed By: #### 2 4323-8 #### OLIMPIA WARE ([id number]) [facility] [place]) [address] [place] [address] Calcium [Mass/Vol] 9.2 mg/dL Normal 8.6-10.3 [facility] Comment on above: Performed By: #### 2 4323-8 #### OLIMPIA WARE ([id number]) [facility] ([facility] [place]) [address] [place] [address] Chloride [Moles/Vol] 105 mmol/L Normal 98-107 [facility] Comment on above: Performed By: #### 2 4323-8 #### OLIMPIA WARE ([id number]) [facility] ([facility] [place]) [address] [place] [address] CO2 [Moles/Vol] 25 mmol/L Normal 21-32 [facility] Comment on above: Performed By: #### 2 4323-8 #### OLIMPIA WARE ([id number]) [facility] ([facility] [place]) [address] [place] [address] Creatinine [Mass/Vol] 1.27 mg/dL Normal 0.50-1.30 [facility] Comment on above: Performed By: #### 2 4323-8 #### OLIMPIA WARE ([id number]) [facility] ([facility] [place]) [address] [place] [address] GFR/1.73 sq M.predicted MDRD (S/P/Bld) [Vol rate/Area] 59 mL/min/1.73m*2 Low >60 [facility] Comment on above: Result Comment: Calc ulations of estimated GFR are performed using the 2020 CKD-EPI Study Refit equation without the race variable for the IDMS-Traceable creatinine methods. https://jasn.asnjournals.org/content/early//ASN.482 6406128 Performed By: #### 2 4323-8 #### OLIMPIA WARE ([id number]) [facility] ([facility] [place]) [address] [place] [address] Glucose [Mass/Vol] 140 mg/dL High 74-99 [facility] Comment on above: Performed By: #### 2 4323-8 #### OLIMPIA WARE ([id number]) [facility] ([facility] [place]) [address] [place] [address] Potassium [Moles/Vol] 4.3 mmol/L Normal 3.5-5.3 [facility] Comment on above: Performed By: #### 2 4323-8 #### OLIMPIA WARE ([id number]) [facility] ([facility] [place]) [address] [place] [address] Protein [Mass/Vol] 6.5 g/dL Normal 6.4-8.2 [facility] Comment on above: Performed By: #### 2 4323-8 #### OLIMPIA WARE ([id number]) [facility] ([facility] [place]) [address] [place] [address] Sodium [Moles/Vol] 138 mmol/L Normal 136-145 [facility] Comment on above: Performed By: #### 2 4323-8 #### OLIMPIA WARE ([id number]) [facility] ([facility] [place]) [address] [place] [address] Urea nitrogen [Mass/Vol] 24 mg/dL High 6-23 [facility] Comment on above: Performed By: #### 2 4323-8 #### OLIMPIA WARE ([id number]) [facility] ([facility] [place]) [address] [place] [address] CBC AND DIFFERENTIALon 05-12 % AUTOMATED IMMATURE GRAN Canceled Normal [facility] Comment on above: Order Comment: TEST CBC AND DIFFERENTIAL WAS CANCELLED, 05/12/2022 10:[address] wagoner doesngustabo needed. Result Comment: Halima ture Granulocyte Count (IG) includes promyelocytes, myelocytes and metamyelocytes but does not include bands. Percent differential counts (%) should be interpreted in the context of the absolute cell counts (cells/L). Performed By: #### C BCDF #### [address] [place] [address] % BASOPHIL Canceled Normal [facility] Comment on above: Order Comment: TEST CBC AND DIFFERENTIAL WAS CANCELLED, 05/12/2022 10:[address] wgaoner doesngustabo needed. Performed By: #### C BCDF #### [address] [place] [address] % EOSINOPHIL Canceled Normal [facility] Comment on above: Order Comment: TEST CBC AND DIFFERENTIAL WAS CANCELLED, 05/12/2022 10:[address] wagoner doesngustabo needed. Performed By: #### C BCDF #### [address] [place] [address] % LYMPHOCYTE Canceled Normal [facility] Comment on above: Order Comment: TEST CBC AND DIFFERENTIAL WAS CANCELLED, 05/12/2022 10:[address] wagoner doesngustabo needed. Performed By: #### C BCDF #### [address] [place] [address] % MONOCYTE Canceled Normal [facility] Comment on above: Order Comment: TEST CBC AND DIFFERENTIAL WAS CANCELLED, 05/12/2022 10:[address] ciaran mcmanus needed. Performed By: #### C BCDF #### [address] [place] [address] % NEUTROPHIL Canceled Normal [facility] Comment on above: Order Comment: TEST CBC AND DIFFERENTIAL WAS CANCELLED, 05/12/2022 10:[address] ciaran mcmanus needed. Performed By: #### C BCDF #### [address] [place] [address] BASOPHIL Canceled Normal [facility] Comment on above: Order Comment: TEST CBC AND DIFFERENTIAL WAS CANCELLED, 05/12/2022 10:[address] ciaran mcmanus needed. Performed By: #### C BCDF #### [address] [place] [address] DIFFERENTIAL Canceled Normal [facility] Comment on above: Order Comment: TEST CBC AND DIFFERENTIAL WAS CANCELLED, 05/12/2022 10:[address] ciaran mcmanus needed. Performed By: #### C BCDF #### [address] [place] [address] EOSINOPHIL Canceled Normal [facility] Comment on above: Order Comment: TEST CBC AND DIFFERENTIAL WAS CANCELLED, 05/12/2022 10:[address] ciaran mcmanus needed. Performed By: #### C BCDF #### [address] [place] [address] HCT Canceled Normal [facility] Comment on above: Order Comment: TEST CBC AND DIFFERENTIAL WAS CANCELLED, 05/12/2022 10:[address] ciaran mcmanus needed. Performed By: #### C BCDF #### [address] [place] [address] HGB Canceled Normal [facility] Comment on above: Order Comment: TEST CBC AND DIFFERENTIAL WAS CANCELLED, 05/12/2022 10:[address] ciaran mcmanus needed. Performed By: #### C BCDF #### [address] [place] [address] LYMPHOCYTE Canceled Normal [facility] Comment on above: Order Comment: TEST CBC AND DIFFERENTIAL WAS CANCELLED, 05/12/2022 10:[address] ciaran mcmanus needed. Performed By: #### C BCDF #### [address] [place] [address] MCHC Canceled Normal [facility] Comment on above: Order Comment: TEST CBC AND DIFFERENTIAL WAS CANCELLED, 05/12/2022 10:[address] ciaran mcmanus needed. Performed By: #### C BCDF #### [address] [place] [address] MCV Canceled [facility] Comment on above: Order Comment: TEST CBC AND DIFFERENTIAL WAS CANCELLED, 05/12/2022 10:[address] ciaran mcmanus needed. Performed By: #### C BCDF #### [address] [place] [address] MONOCYTE Canceled [facility] Comment on above: Order Comment: TEST CBC AND DIFFERENTIAL WAS CANCELLED, 05/12/2022 10:[address] ciaran mcmanus needed. Performed By: #### C BCDF #### [address] [place] [address] NEUTROPHIL Canceled Normal [facility] Comment on above: Order Comment: TEST CBC AND DIFFERENTIAL WAS CANCELLED, 05/12/2022 10:[address] ciaran mcmanus needed. Performed By: #### C BCDF #### [address] [place] [address] PLT Canceled [facility] Comment on above: Order Comment: TEST CBC AND DIFFERENTIAL WAS CANCELLED, 05/12/2022 10:[address] ciaran mcmanus needed. Performed By: #### C BCDF #### [address] [place] [address] RBC Canceled Normal [facility] Comment on above: Order Comment: TEST CBC AND DIFFERENTIAL WAS CANCELLED, 05/12/2022 10:[address] ciaran mcmanus needed. Performed By: #### C BCDF #### [address] [place] [address] RDW-CV Canceled Normal [facility] Comment on above: Order Comment: TEST CBC AND DIFFERENTIAL WAS CANCELLED, 05/12/2022 10:[address] ciaran mcmanus needed. Performed By: #### C BCDF #### [address] [place] [address] WBC Canceled Normal [facility] Comment on above: Order Comment: TEST CBC AND DIFFERENTIAL WAS CANCELLED, 05/12/2022 10:[address] ciaran mcmanus needed. Performed By: #### C BCDF #### [address] [place] [address] COMPREHENSIVE PANELon 2021 ALBUMIN Canceled Normal [facility] Comment on above: Order Comment: TEST COMPREHENSIVE PANEL WAS CANCELLED, 05/12/2022 10:[address] ciaran mcmanus needed. Performed By: #### C MP #### [address] [place] [address] ALKALINE PHOSPHATASE Canceled Normal [facility] Comment on above: Order Comment: TEST COMPREHENSIVE PANEL WAS CANCELLED, 05/12/2022 10:[address] ciaran mcmanus needed. Performed By: #### C MP #### [address] [place] [address] ALT Canceled Normal [facility] Comment on above: Order Comment: TEST COMPREHENSIVE PANEL WAS CANCELLED, 05/12/2022 10:[address] ciaran mcmanus needed. Result Comment: Kanwal ents treated with Sulfasalazine may generate falsely decreased results for ALT. Performed By: #### C MP #### [address] [place] [address] ANION GAP Canceled Normal [facility] Comment on above: Order Comment: TEST COMPREHENSIVE PANEL WAS CANCELLED, 05/12/2022 10:[address] ciaran mcmanus needed. Performed By: #### C MP #### [address] [place] [address] AST Canceled Normal [facility] Comment on above: Order Comment: TEST COMPREHENSIVE PANEL WAS CANCELLED, 05/12/2022 10:[address] ciaran mcmanus needed. Performed By: #### C MP #### [address] [place] [address] BICARBONATE Canceled Normal [facility] Comment on above: Order Comment: TEST COMPREHENSIVE PANEL WAS CANCELLED, 05/12/2022 10:[address] ciaran mcmanus needed. Performed By: #### C MP #### [address] [place] [address] BILIRUBIN,TOTAL Canceled Normal [facility] Comment on above: Order Comment: TEST COMPREHENSIVE PANEL WAS CANCELLED, 05/12/2022 10:[address] ciaran mcmanus needed. Performed By: #### C MP #### [address] [place] [address] CALCIUM Canceled [facility] Comment on above: Order Comment: TEST COMPREHENSIVE PANEL WAS CANCELLED, 05/12/2022 10:[address] ciaran mcmanus needed. Performed By: #### C MP #### [address] [place] [address] CHLORIDE Canceled Normal [facility] Comment on above: Order Comment: TEST COMPREHENSIVE PANEL WAS CANCELLED, 05/12/2022 10:[address] ciaran mcmanus needed. Performed By: #### C MP #### [address] [place] [address] CREATININE Canceled [facility] Comment on above: Order Comment: TEST COMPREHENSIVE PANEL WAS CANCELLED, 05/12/2022 10:[address] ciaran mcmanus needed. Performed By: #### C MP #### [address] [place] [address] eGFR FEMALE Canceled Normal [facility] Comment on above: Order Comment: TEST COMPREHENSIVE PANEL WAS CANCELLED, 05/12/2022 10:[address] ciaran mcmanus needed. Result Comment: CALC ULATIONS OF ESTIMATED GFR ARE PERFORMED USING THE 2020 CKD-EPI STUDY REFIT EQUATION WITHOUT THE RACE VARIABLE FOR THE IDMS-TRACEABLE CREATININE METHODS. https://jasn.asnjournals.org/content/earlyASN.592 9885982 Performed By: #### C MP #### [address] [place] [address] eGFR MALE Canceled Normal [facility] Comment on above: Order Comment: TEST COMPREHENSIVE PANEL WAS CANCELLED, 05/12/2022 10:[address] ciaran mcmanus needed. Result Comment: CALC ULATIONS OF ESTIMATED GFR ARE PERFORMED USING THE 2020 CKD-EPI STUDY REFIT EQUATION WITHOUT THE RACE VARIABLE FOR THE IDMS-TRACEABLE CREATININE METHODS. https://jasn.asnjournals.org/content/earlyASN.305 3328900 Performed By: #### C MP #### [address] [place] [address] GLUCOSE Canceled [facility] Comment on above: Order Comment: TEST COMPREHENSIVE PANEL WAS CANCELLED, 05/12/2022 10:[address] ciaran mcmanus needed. Performed By: #### C MP #### [address] [place] [address] POTASSIUM Canceled Normal [facility] Comment on above: Order Comment: TEST COMPREHENSIVE PANEL WAS CANCELLED, 05/12/2022 10:[address] wagoner doesngustabo needed. Performed By: #### C MP #### [address] [place] [address] SODIUM Canceled Normal [facility] Comment on above: Order Comment: TEST COMPREHENSIVE PANEL WAS CANCELLED, 05/12/2022 10:[address] ciaran mcmanus needed. Performed By: #### C MP #### [address] [place] [address] TOTAL PROTEIN Canceled Normal [facility] Comment on above: Order Comment: TEST COMPREHENSIVE PANEL WAS CANCELLED, 05/12/2022 10:[address] ciaran mcmanus needed. Performed By: #### C MP #### [address] [place] [address] UREA NITROGEN Canceled Normal [facility] Comment on above: Order Comment: TEST COMPREHENSIVE PANEL WAS CANCELLED, 05/12/2022 10:[address] ciaran mcmanus needed. Performed By: #### C MP #### [address] [place] [address] Clinic Note - Heme Onc-Follo w Up Visiton 05-12-2022 Clinic Note - Heme Onc-Follow Up Visit Patient Visit Information: Visit Type: Follow Up Visit History of Present Illness: ID Statement: YUSEF CAR is a 72 year old Male Chief Complaint: Duodenal neuroendocrine tumor Interval History: 71 years old gentleman from [place], [place] who has been referred to me from [facility]. The patient complained of acid reflux [...] Weights & Heights: Date: Weight/Scale Type:Height: 26-Aug-2021 13:09190 kg / standing tqtoz514.8 cm 20-May-2021 12:67002 kg / standing kosnb449.8 cm 04-Feb-2021 09:37416 kg / standing aehev453.8 cm Physical Exam: Constitutional: Appears well and [...] 26-Aug-2021 1 (more content not included)... Normal [facility] Clinic Note - Intakeon 05-12 Clinic Note [...] 3 Weights & HeightsDate: Weight/Scale Type:Height: 26-Aug-2021 13:62495 kg / standing adfqf071.8 cm 20-May-2021 12:07230 kg / standing lafpl634.8 cm SpO2 (%)94 % SpO2 Patient Onroom [...] 12-May-2022 09:56 by Kindra Maher (PCNA) Normal [facility] GLUCOSE-POCTon 04-29-2022 Glucose [Mass/Vol] 139 mg/dL High 74 - 99 [facility] Comment on above: Performed By: #### G MARIXA #### [facility] [address] [place] [address] Laboratory - Chemistry and C hemistry - challengeon 04-29-2022 Glucose [Mass/Vol] 139 mg/dL above high threshold 74 - 99 [facility] Work Phone: No Panel Informationon 04-29 [facility] Work Phone: [email or web address] [facility] Work Phone: [facility] Work Phone: Order Reconciliationon 04-29 Order Reconciliation [...] orally once a day [facility]ology Depar tmenton 04-29-2022 [facility] Surgical Pathology Department Name YUSEF CAR Pathologist: DU LUGO Date of Procedure: 04/29/2022 Date Received: 04/29/2022 Date Reported 05/05/2022 Submitting Physician: JEREMIAH MAGAÑA MD Location: [facility] Copy To/Referring/Attending: VANESSA STEELE MD Other External [...] at [facility] [address] [facility] [place] [address] Clinical History: Follow up history of duodenal [...] positive and negative controls which stained appropriately. [facility] Department of Pathology [address] [place] [address] Normal [facility] Comment on above: Performed By: #### [facility] #### [facility] Surgical Pathology Department [address] [place] [address] Upper GI endoscopyon 04-29- 022 Upper GI endoscopy PATIENTNAME Patient Name: Yusef Car EXAMDATE Procedure Date: 04/29/2022 7:25 AM PATIENTID PATIENTACCOUNTNUM PATIENTDOB Date of : 1950 ADMITTYPE Admit Type: Outpatient PATIENTROOM Site: [facility] 1 ETHNICITY Ethnicity: Not or RACE Race: White PROVDR Attending MD: Jeremiah Magaña MD, [id number] ENDOPROCEDURENAME Procedure: Upper GI endoscopy INDICATION Indications: [...] (Doctor), Martha Kyle RN (Nurse), Moi Huff, Power Checker EDREFPROVIDER Referring: Vanessa Steele CURRENT_MEDS Medicines: See [...] diet. 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 All rights reserved. The codes documented in this report are preliminary and upon crinkling machine operator review may be revised to meet current compliance requirements. ATTDRPART Attending Participa (more content not included)... [facility] General/Metabolic - Establis olga lidia 12-05-2021 General/Metabolic [...] history, the 84 gene Multi-Cancer Panel from [employer] was recommended and ordered. - I called [...] no significant history of cancer and/or Ashkenazi Latter Day ancestry on their mother's side, no genetic [...] since our discussion today. Lulu Calle MS, [facility] Licensed Genetic Counselor [facility] [phone]. Chief Complaint Patient seen for discussion of [...] 84-gene Multi-Cancer + RNA analysis panel from [employer]. Our discussion is summarized below. We reviewed [...] affected individuals), and endocrine tumors of the ozpmsg-ipivqw-nrpcvmehbl (GEP) tract. Clinically, MEN1 is diagnosed when [...] or greater) and health insurance companies (barring m2p-labs and other insurances) are forbidden to ask for and use genetic information against another person. As such, health insurance companies cannot ask for genetic information and use findings affect coverage or rates. However, luxury insurances such as life insurance, terminal operator care insurance, and/or private disability insurance companies [...] Interval History: 71 years old gentleman from [place], [place] who has been referred to me from [facility]. The patient complained of acid reflux [...] Weights & Heights: Date: Weight/Scale Type:Height: 26-Aug-2021 13:41004 kg / standing dgxfu096.8 cm 20-May-2021 12:04185 kg / standing ievxa060.8 cm 04-Feb-2021 09:47071 kg / standing jblab227.8 cm Physical Exam: Constitutional: Appears well and [...] 13 Complet (more content not included)... [facility] Clinic Note - Intakeon 08-26 Clinic Note - Intake Patient Visit Information: Visit TypeFollow Up Visit Source of Informationpatient Accompanied byspouse Admission Information: Admission Since Last VisitYes [facility] Admission [id number] Admission Reason/Detailssepsis and removal of gall bladder [...] 3 Weights & HeightsDate: Weight/Scale Type:Height: 20-May-2021 12:63716 kg / standing shlja389.8 cm 04-Feb-2021 09:05350 kg / standing zgavz302.8 cm 07-Jan-2021 13:13020 kg / standing iuwvx594.8 cm SpO2 (%)95 % SpO2 Patient Onroom [...] 26-Aug-2021 13:50 by Latanya Bhat (PCNA) Normal [facility] CULTURE BLOODon 06-09-2021 Microscopic examination of blood, [...] F Trimethoprim/Sulfamethoxa zole <=20 S F Normal [facility] Comment on above: Performed By: #### C BCMAN #### [facility] [address] [place] [address] Dr. Freda Wayne CBC AUTO DIFFon 06-06-2021 BASO # 0.0 103/ul Normal 0.0-0.1 [facility] Comment on above: Performed By: #### P OCGLUC #### [facility] [address] [place] [address] José Luis Kisha Basophils/100 WBC (Bld) 0.1 % Critically low 0.2-2.0 [facility] Comment on above: Performed By: #### P OCGLUC #### [facility] [address] [place] [address] José Luis Kisha EO # 0.0 103/ul Normal 0.0-0.7 [facility] Comment on above: Performed By: #### P OCGLUC #### [facility] [address] [address] José Luis Beard Eosinophils/100 WBC (Bld) 0.0 % Critically low 0.9-7.0 [facility] Comment on above: Performed By: #### P OCGLUC #### [facility] [address] [place] [address] José Luis Beard Erythrocyte distribution width (RBC) [Ratio] 15.1 % Critically high 11.0-15.0 [facility] Comment on above: Performed By: #### P OCGLUC #### [facility] [address] [place] [address] José Luis Beard Hematocrit (Bld) [Volume fraction] 34.7 % Critically low 42.0-54.0 [facility] Comment on above: Performed By: #### P OCGLUC #### [facility] [address] [place] [address] José Luis Kisha Hemoglobin (Bld) [Mass/Vol] 10.9 g/dL Critically low 14.0-18.0 [facility] Comment on above: Performed By: #### P OCGLUC #### [facility] [address] [place] [address] José Luis Kisha IG # 0.04 10e3/ul Critically high 0.00-0.03 [facility] Comment on above: Performed By: #### P OCGLUC #### [facility] [address] [place] [address] José Luis Kisha IG % 0.4 % Normal 0.0-0.5 [facility] Comment on above: Performed By: #### P OCGLUC #### [facility] [address] [place] [address] José Luis Kisha LYMPH # 0.5 103/ul Critically low 1.2-3.8 [facility] Comment on above: Performed By: #### P OCGLUC #### [facility] [address] [place] [address] José Luis Kisha Lymphocytes/100 WBC (Bld) 5.5 % Critically low 20.5-60.0 [facility] Comment on above: Performed By: #### P OCGLUC #### [facility] [address] [place] [address] José Luis Baerd MANUAL DIFF REQ NO Normal [facility] Comment on above: Performed By: #### P OCGLUC #### [facility] [address] [place], [place] [address] José Luis Beard MCH (RBC) [Entitic mass] 28.2 pg Normal 25.9-34.0 [facility] Comment on above: Performed By: #### P OCGLUC #### [facility] [address] [place] [address] José Luis Beard MCHC (RBC) [Mass/Vol] 31.4 g/dL Normal 29.9-35.2 [facility] Comment on above: Performed By: #### P OCGLUC #### [facility] [address] [place] [address] José Luis Beard MCV (RBC) [Entitic vol] 89.9 fL Normal 80.0-94.0 [facility] Comment on above: Performed By: #### P OCGLUC #### [facility] [address] [place] [address] José Luis Beard MONO # 0.9 103/ul Critically high 0.3-0.8 [facility] Comment on above: Performed By: #### P OCGLUC #### [facility] [address] [place] [address] José Luis Beard Monocytes/100 WBC (Bld) 9.4 % Normal 1.7-12.0 [facility] Comment on above: Performed By: #### P OCGLUC #### [facility] [address] [place] [address] José Luis Beard NEUT # 8.1 103/ul Critically high 1.4-6.5 [facility] Comment on above: Performed By: #### P OCGLUC #### [facility] [address] [place] [address] José Luis Beard Neutrophils/100 WBC (Bld) 84.6 % Critically high 43.0-75.0 [facility] Comment on above: Performed By: #### P OCGLUC #### [facility] [address] [place] [address] José Luis Beard Platelet mean volume (Bld) [Entitic vol] 10.5 fL Normal 9.5-13.5 [facility] Comment on above: Performed By: #### P OCGLUC #### [facility] [address] [place] [address] José Luis Beard PLT 263 103/ul Normal 150-450 [facility] Comment on above: Performed By: #### P OCGLUC #### [facility] [address] [place] [address] José Luis Beard RBC 3.86 106/ul Critically low 4.70-6.10 [facility] Comment on above: Performed By: #### P OCGLUC #### [facility] [address] [place] [address] José Luis Beard WBC 9.6 103/ul Normal 4.0-11.0 [facility] Comment on above: Performed By: #### P OCGLUC #### [facility] [address] [place] [address] José Luis Beard CULTURE BLOODon 06-06-2021 Microscopic examination of blood, culture Culture Observations: NO GROWTH AT 5 DAYS. [facility] Comment on above: Performed By: #### C BCMAN #### [facility] [address] [place] [address] Dr. Freda Wayne POINT OF CARE GLUCOSEon 05-16 Glucose [Mass/Vol] 192 mg/dL Critically high 74-106 [facility] Comment on above: Performed By: #### P OCGLUC #### [facility] [address] [place] [address] Dr. Freda Wayne PROF 14(COMP METB)on 021 Albumin [Mass/Vol] 2.6 g/dL Critically low 3.5-5.0 [facility] Comment on above: Performed By: #### P OCGLUC #### [facility] [address] [place] [address] José Luis Beard Albumin/Globulin [Mass ratio] 0.7 {ratio} Normal [facility] Comment on above: Performed By: #### P OCGLUC #### [facility] [address] [id number] José Luis Kisha ALP [Catalytic activity/Vol] 233 U/L Critically high 38-126 [facility] Comment on above: Performed By: #### P OCGLUC #### [facility] [address] [id number] José Luis Kisha ALT [Catalytic activity/Vol] 103 U/L Critically high 21-72 [facility] Comment on above: Performed By: #### P OCGLUC #### [facility] [address] [address] José Luis Kisha Anion gap [Moles/Vol] 12.2 mmol/L Normal [facility] Comment on above: Performed By: #### P OCGLUC #### [facility] [address] [place] [address] José Luis Kisha AST [Catalytic activity/Vol] 44 U/L Normal 17-59 [facility] Comment on above: Performed By: #### P OCGLUC #### [facility] [address] [address] José Luis Kisha Bilirubin [Mass/Vol] 0.4 mg/dL Normal 0.2-1.3 [facility] Comment on above: Performed By: #### P OCGLUC #### [facility] [address] [place] [address] José Luis Kisha Calcium [Mass/Vol] 9.0 mg/dL Normal 8.4-10.2 [facility] Comment on above: Performed By: #### P OCGLUC #### [facility] [address] [address] José Luis Kisha Chloride [Moles/Vol] 102 mmol/L Normal 98-107 [facility] Comment on above: Performed By: #### P OCGLUC #### [facility] [address] [place], [place] [id number] José Luis Kisha CO2 [Moles/Vol] 26.9 mmol/L Normal 22.0-30.0 [facility] Comment on above: Performed By: #### P OCGLUC #### [facility] [address] [place], [place] [id number] José Luis Kisha Creatinine [Mass/Vol] 1.22 mg/dL Normal 0.66-1.25 [facility] Comment on above: Performed By: #### P OCGLUC #### [facility] [address] [address] José Luis Kisha EGFR-AF COOK ISLANDER >60 Normal >=60 [facility] Comment on above: Performed By: #### P OCGLUC #### [facility] [address] [address] José Luis Kisha EGFR-NON AF COOK ISLANDER 58 mL/min/1.73m2 Critically low >=60 [facility] Comment on above: Performed By: #### P OCGLUC #### [facility] [address] [address] José Luis Kisha Globulin (S) [Mass/Vol] 3.6 g/dL Normal [facility] Comment on above: Performed By: #### P OCGLUC #### [facility] [address] [place] [address] José Luis Kisha Glucose [Mass/Vol] 152 mg/dL Critically high 74-106 [facility] Comment on above: Performed By: #### P OCGLUC #### [facility] [address] [place] [address] José Luis Kisha Potassium [Moles/Vol] 4.1 mmol/L Normal 3.4-5.0 [facility] Comment on above: Performed By: #### P OCGLUC #### [facility] [address] [place] [address] José Luis Kisha Protein [Mass/Vol] 6.2 g/dL Normal 6.1-8.2 [facility] Comment on above: Performed By: #### P OCGLUC #### [facility] [address] [place] [address] José Luis Kisha Sodium [Moles/Vol] 137 mmol/L Normal 137-145 [facility] Comment on above: Performed By: #### P OCGLUC #### [facility] [address] [place] [address] José Luis Kisha Urea nitrogen [Mass/Vol] 12.0 mg/dL Normal 9.0-20.0 [facility] Comment on above: Performed By: #### P OCGLUC #### [facility] [address] [place] [address] José Luis Beard Urea nitrogen/Creatinine [Mass ratio] 9.8 mg/mg Normal [facility] Comment on above: Performed By: #### P OCGLUC #### [facility] [address] [place] [address] José Luis Beard CBC AUTO DIFFon 06-05-2021 BASO # 0.0 103/ul Normal 0.0-0.1 [facility] Comment on above: Performed By: #### P OCGLUC #### [facility] [address] [place] [address] Dr. Freda Wayne Basophils/100 WBC (Bld) 0.2 % Normal 0.2-2.0 [facility] Comment on above: Performed By: #### P OCGLUC #### [facility] [address] [place] [address] Dr. Freda Wayne EO # 0.0 103/ul Normal 0.0-0.7 [facility] Comment on above: Performed By: #### P OCGLUC #### [facility] [address] [place] [address] Dr. Freda Wayne Eosinophils/100 WBC (Bld) 0.4 % Critically low 0.9-7.0 [facility] Comment on above: Performed By: #### P OCGLUC #### [facility] [address] [place] [address] Dr. Freda Wayne Erythrocyte distribution width (RBC) [Ratio] 15.4 % Critically high 11.0-15.0 [facility] Comment on above: Performed By: #### P OCGLUC #### [facility] [address] [place] [address] Dr. Freda Wayne Hematocrit (Bld) [Volume fraction] 35.5 % Critically low 42.0-54.0 [facility] Comment on above: Performed By: #### P OCGLUC #### [facility] [address] [place] [address] Dr. Freda Wayne Hemoglobin (Bld) [Mass/Vol] 11.5 g/dL Critically low 14.0-18.0 [facility] Comment on above: Performed By: #### P OCGLUC #### [facility] [address] [place] [address] Dr. Freda Wayne IG # 0.04 10e3/ul Critically high 0.00-0.03 [facility] Comment on above: Performed By: #### P OCGLUC #### [facility] [address] [place] [address] Dr. Freda Wayne IG % 0.4 % Normal 0.0-0.5 [facility] Comment on above: Performed By: #### P OCGLUC #### [facility] [address] [place] [address] Dr. Freda Wayne LYMPH # 0.7 103/ul Critically low 1.2-3.8 [facility] Comment on above: Performed By: #### P OCGLUC #### [facility] [address] [place] [address] Dr. Freda Wayne Lymphocytes/100 WBC (Bld) 7.4 % Critically low 20.5-60.0 [facility] Comment on above: Performed By: #### P OCGLUC #### [facility] [address] [place] [address] Dr. Freda Wayne MANUAL DIFF REQ NO Normal [facility] Comment on above: Performed By: #### P OCGLUC #### [facility] [address] [place] [address] Dr. Freda Wayne MCH (RBC) [Entitic mass] 28.8 pg Normal 25.9-34.0 [facility] Comment on above: Performed By: #### P OCGLUC #### [facility] [address] [place] [address] Dr. Freda Wayne MCHC (RBC) [Mass/Vol] 32.4 g/dL Normal 29.9-35.2 [facility] Comment on above: Performed By: #### P OCGLUC #### [facility] [address] [place] [address] Dr. Freda Wayne MCV (RBC) [Entitic vol] 89.0 fL Normal 80.0-94.0 [facility] Comment on above: Performed By: #### P OCGLUC #### [facility] [address] [place] [address] Dr. Freda Wayne MONO # 1.1 103/ul Critically high 0.3-0.8 [facility] Comment on above: Performed By: #### P OCGLUC #### [facility] [address] [place] [address] Dr. Freda Wayne Monocytes/100 WBC (Bld) 10.5 % Normal 1.7-12.0 [facility] Comment on above: Performed By: #### P OCGLUC #### [facility] [address] [place] [address] Dr. Freda Wayne NEUT # 8.2 103/ul Critically high 1.4-6.5 [facility] Comment on above: Performed By: #### P OCGLUC #### [facility] [address] [place] [address] Dr. Freda Wayne Neutrophils/100 WBC (Bld) 81.1 % Critically high 43.0-75.0 [facility] Comment on above: Performed By: #### P OCGLUC #### [facility] [address] [place] [address] Dr. Freda Wayne Platelet mean volume (Bld) [Entitic vol] 10.4 fL Normal 9.5-13.5 [facility] Comment on above: Performed By: #### P OCGLUC #### [facility] [address] [place] [address] Dr. Freda Wayne PLT 262 103/ul Normal 150-450 [facility] Comment on above: Performed By: #### P OCGLUC #### [facility] [address] [place] [address] Dr. Freda Wayne RBC 3.99 106/ul Critically low 4.70-6.10 [facility] Comment on above: Performed By: #### P OCGLUC #### [facility] [address] [place] [address] Dr. Freda Wayne WBC 10.1 103/ul Normal 4.0-11.0 [facility] Comment on above: Performed By: #### P OCGLUC #### [facility] [address] [place] [address] Dr. Freda Wayne POINT OF CARE GLUCOSEon 05-16 Glucose [Mass/Vol] 208 mg/dL Critically high 74-106 [facility] Comment on above: Performed By: #### P OCGLUC #### [facility] [address] [address] [address] Freda Wayne Glucose [Mass/Vol] 188 mg/dL Critically high 74-106 [facility] Comment on above: Performed By: #### P OCGLUC #### [facility] [address] [place] [address] Dr. Freda Wayne Glucose [Mass/Vol] 143 mg/dL Critically high 74-106 [facility] Comment on above: Performed By: #### P OCGLUC #### [facility] [address] [place] [address] José Luis Beard PROF 14(COMP METB)on 021 Albumin [Mass/Vol] 2.8 g/dL Critically low 3.5-5.0 [facility] Comment on above: Performed By: #### P OCGLUC #### [facility] [address] [place] [address] José Luis Beard Albumin/Globulin [Mass ratio] 0.8 {ratio} Normal [facility] Comment on above: Performed By: #### P OCGLUC #### [facility] [address] [place] [address] José Luis Beard ALP [Catalytic activity/Vol] 126 U/L Normal 38-126 [facility] Comment on above: Performed By: #### P OCGLUC #### [facility] [address] [place] [address] José Luis Beard ALT [Catalytic activity/Vol] 109 U/L Critically high 21-72 [facility] Comment on above: Performed By: #### P OCGLUC #### [facility] [address] [place], [place] [address] José Luis Kisha Anion gap [Moles/Vol] 14.4 mmol/L Normal Th e [facility] Comment on above: Performed By: #### P OCGLUC #### [facility] [address] [id number] José Luis Kisha AST [Catalytic activity/Vol] 42 U/L Normal 17-59 [facility] Comment on above: Performed By: #### P OCGLUC #### [facility] [address] [address] José Luis Kisha Bilirubin [Mass/Vol] 0.7 mg/dL Normal 0.2-1.3 [facility] Comment on above: Performed By: #### P OCGLUC #### [facility] [address] [address] José Luis Kisha Calcium [Mass/Vol] 8.7 mg/dL Normal 8.4-10.2 [facility] Comment on above: Performed By: #### P OCGLUC #### [facility] [address] [address] José Luis Kisha Chloride [Moles/Vol] 100 mmol/L Normal 98-107 [facility] Comment on above: Performed By: #### P OCGLUC #### [facility] [address] [address] José Luis Kisha CO2 [Moles/Vol] 26.1 mmol/L Normal 22.0-30.0 [facility] Comment on above: Performed By: #### P OCGLUC #### [facility] [address] [address] José Luis Kisha Creatinine [Mass/Vol] 1.23 mg/dL Normal 0.66-1.25 [facility] Comment on above: Performed By: #### P OCGLUC #### [facility] [address] [place] [address] José Luis Kisha EGFR-AF COOK ISLANDER >60 Normal >=60 [facility] Comment on above: Performed By: #### P OCGLUC #### [facility] [address] [address] José Luis Kisha EGFR-NON AF COOK ISLANDER 58 mL/min/1.73m2 Critically low >=60 [facility] Comment on above: Performed By: #### P OCGLUC #### [facility] [address] [id number] José Luis Kisha Globulin (S) [Mass/Vol] 3.5 g/dL Normal [facility] Comment on above: Performed By: #### P OCGLUC #### [facility] [address] [id number] José Luis Kisha Glucose [Mass/Vol] 139 mg/dL Critically high 74-106 [facility] Comment on above: Performed By: #### P OCGLUC #### [facility] [address] [id number] José Luis Kisha Potassium [Moles/Vol] 3.5 mmol/L Normal 3.4-5.0 [facility] Comment on above: Performed By: #### P OCGLUC #### [facility] [address] [address] José Luis Kisha Protein [Mass/Vol] 6.3 g/dL Normal 6.1-8.2 [facility] Comment on above: Performed By: #### P OCGLUC #### [facility] [address] [id number] José Luis Kisha Sodium [Moles/Vol] 137 mmol/L Normal 137-145 [facility] Comment on above: Performed By: #### P OCGLUC #### [facility] [address] [id number] José Luis Kisha Urea nitrogen [Mass/Vol] 12.0 mg/dL Normal 9.0-20.0 [facility] Comment on above: Performed By: #### P OCGLUC #### [facility] [address] [id number] José Luis Kisha Urea nitrogen/Creatinine [Mass ratio] 9.8 mg/mg Normal [facility] Comment on above: Performed By: #### P OCGLUC #### [facility] [address] [id number] José Luis Kisha CBC W MANUAL DIFFon 12--20 21 ATYPICAL LYMPH # Normal [facility] Comment on above: Performed By: #### C BCMAN #### [facility] [address] [place] [address] Dr. Freda Wayne ATYPICAL LYMPH % Normal [facility] Comment on above: Performed By: #### C NICOLE #### [facility] [address] [place] [address] Dr. Freda Wayne BAND # 0.3 103/ul Normal 0.0-0.3 [facility] Comment on above: Performed By: #### C NICOLE #### [facility] [address] [place] [address] Dr. Freda Wayne BAND % 3 % Normal 0-5 [facility] Comment on above: Performed By: #### C NICOLE #### [facility] [address] [place] [address] Dr. Freda Wayne BASOM # 0.00 103/ul Normal 0.00-0.10 [facility] Comment on above: Performed By: #### C NICOLE #### [facility] [address] [place] [address] Dr. Freda Wayne BASOM % 0.0 % Critically low 0.2-2.0 [facility] Comment on above: Performed By: #### C NICOLE #### [facility] [address] [place] [address] Dr. Freda Wayne BLAST # Normal [facility] Comment on above: Performed By: #### C NICOLE #### [facility] [address] [place] [address] Dr. Freda Wayne BLAST % Normal [facility] Comment on above: Performed By: #### C NICOLE #### [facility] [address] [place] [address] Dr. Freda Wayne CORRECTED WBC Normal 4.0-11.0 [facility] Comment on above: Performed By: #### C NICOLE #### [facility] [address] [place] [address] Dr. Freda Wayne EOS # 0.00 103/ul Normal 0.00-0.70 [facility] Comment on above: Performed By: #### C NICOLE #### [facility] [address] [address] [address] Freda Wayne EOS% 0.0 % Critically low 0.9-7.0 [facility] Comment on above: Performed By: #### C NICOLE #### [facility] [address] [place] [address] Dr. Freda Wayne HCT 35.4 % Critically low 42.0-54.0 [facility] Comment on above: Performed By: #### C NICOLE #### [facility] [address] [address] [address] Freda Wayne HGB 11.3 g/dl Critically low 14.0-18.0 [facility] Comment on above: Performed By: #### C NICOLE #### [facility] [address] [place] [address] Dr. Freda Wayne LYMPHM # 0.65 103/ul Critically low 1.20-3.80 [facility] Comment on above: Performed By: #### C NICOLE #### [facility] [address] [place] [address] Dr. Freda Wayne LYMPHM% 6.0 % Critically low 20.5-60.0 [facility] Comment on above: Performed By: #### C NICOLE #### [facility] [address] [place] [address] Dr. Freda Wayne MCH 28.8 pg Normal 25.9-34.0 [facility] Comment on above: Performed By: #### C NICOLE #### [facility] [address] [place] [address] Dr. Freda Wayne MCHC 31.9 g/dl Normal 29.9-35.2 [facility] Comment on above: Performed By: #### C NICOLE #### [facility] [address] [place] [address] Dr. Freda Wayne MCV 90.3 fL Normal 80.0-94.0 [facility] Comment on above: Performed By: #### C NICOLE #### [facility] [address] [place] [address] Dr. Freda Wayne METAMYELOCYTE # Normal [facility] Comment on above: Performed By: #### C NICOLE #### [facility] [address] [place] [address] Dr. Freda Wayne METAMYELOCYTE % Normal [facility] Comment on above: Performed By: #### C NICOLE #### [facility] [address] [place] [address] Dr. Freda Wayne MONOM# 0.76 103/ul Normal 0.30-0.80 [facility] Comment on above: Performed By: #### C NICOLE #### [facility] [address] [place] [address] Dr. Freda Wayne MONOM% 7.0 % Normal 1.7-12.0 [facility] Comment on above: Performed By: #### C NICOLE #### [facility] [address] [place] [address] Dr. Freda Wayne MPV 10.2 fL Normal 9.5-13.5 [facility] Comment on above: Performed By: #### Slime RIVERA #### [facility] [address] [place] [address] Dr. Freda Wayne MYELOCYTE # Normal [facility] Comment on above: Performed By: #### C NICOLE #### [facility] [address] [place] [address] Dr. Freda Wayne MYELOCYTE % Normal [facility] Comment on above: Performed By: #### C NICOLE #### [facility] [address] [place] [address] Dr. Freda Wayne NRBC Normal [facility] Comment on above: Performed By: #### C NICOLE #### [facility] [address] [place] [address] Dr. Freda Wayne PLT 275 103/ul Normal 150-450 [facility] Comment on above: Performed By: #### C NICOLE #### [facility] [address] [place] [address] Dr. Freda Wayne RBC 3.92 106/ul Critically low 4.70-6.10 [facility] Comment on above: Performed By: #### C NICOLE #### [facility] [address] [address] [address] Freda Wayne RDW 15.5 % Critically high 11.0-15.0 [facility] Comment on above: Performed By: #### C NICOLE #### [facility] [address] [id number] [address] Freda Wayne SEG # 9.16 103/ul Critically high 1.40-6.50 [facility] Comment on above: Performed By: #### C NICOLE #### [facility] [address] [id number] [address] Freda Wayne SEG % 84.0 % Critically high 43.0-75.0 [facility] Comment on above: Performed By: #### C NICOLE #### [facility] [address] [address] [address] Freda Wayne WBC 10.9 103/ul Normal 4.0-11.0 [facility] Comment on above: Performed By: #### Slime RIVERA #### [facility] [address] [address] [address] Freda Wayne NM HEPATOBILIARY SCANon 05-16 [...] by: CINDI RYAN Date: 2021-06-04 00:06 Normal [facility] POINT OF CARE GLUCOSEon 05-16 Glucose [Mass/Vol] 219 mg/dL Critically high 74-106 [facility] Comment on above: Performed By: #### P OCGLUC #### [facility] [address] [address] José Luisdinh Beard Glucose [Mass/Vol] 134 mg/dL Critically high 74-106 [facility] Comment on above: Performed By: #### P OCGLUC #### [facility] [address] [place] [address] Dr. Freda Wayne Glucose [Mass/Vol] 196 mg/dL Critically high 74-106 [facility] Comment on above: Performed By: #### P OCGLUC #### [facility] [address] [place] [address] José Luis Beard PROF 14(COMP METB)on 06-04- 021 Albumin [Mass/Vol] 2.8 g/dL Critically low 3.5-5.0 [facility] Comment on above: Performed By: #### C MP #### [facility] [address] [place] [address] Dr. Freda Wayne Albumin/Globulin [Mass ratio] 0.8 {ratio} Normal [facility] Comment on above: Performed By: #### C MP #### [facility] [address] [place] [address] Dr. Freda Wayne ALP [Catalytic activity/Vol] 131 U/L Critically high 38-126 [facility] Comment on above: Performed By: #### C MP #### [facility] [address] [place] [address] Dr. Freda Wayne ALT [Catalytic activity/Vol] 153 U/L Critically high 21-72 [facility] Comment on above: Performed By: #### C MP #### [facility] [address] [place] [address] Dr. Freda Wayne Anion gap [Moles/Vol] 12.6 mmol/L Normal [facility] Comment on above: Performed By: #### C MP #### [facility] [address] [place] [address] Dr. Freda Wayne AST [Catalytic activity/Vol] 79 U/L Critically high 17-59 [facility] Comment on above: Performed By: #### C MP #### [facility] [address] [place] [address] Dr. Freda Wayne Bilirubin [Mass/Vol] 0.7 mg/dL Normal 0.2-1.3 [facility] Comment on above: Performed By: #### C MP #### [facility] [address] [address] [address] Freda Wayne Calcium [Mass/Vol] 8.6 mg/dL Normal 8.4-10.2 [facility] Comment on above: Performed By: #### C MP #### [facility] [address] [address] [address] Freda Wayne Chloride [Moles/Vol] 104 mmol/L Normal 98-107 [facility] Comment on above: Performed By: #### C MP #### [facility] [address] [place] [address] Dr. Freda Wayne CO2 [Moles/Vol] 25.2 mmol/L Normal 22.0-30.0 [facility] Comment on above: Performed By: #### C MP #### [facility] [address] [place] [address] Dr. Freda Wayne Creatinine [Mass/Vol] 1.30 mg/dL Critically high 0.66-1.25 [facility] Comment on above: Performed By: #### C MP #### [facility] [address] [place] [address] Dr. Freda Wayne EGFR-AF COOK ISLANDER >60 Normal >=60 [facility] Comment on above: Performed By: #### C MP #### [facility] [address] [place] [address] Dr. Freda Wayne EGFR-NON AF [place] ISLANDER 54 mL/min/1.73m2 Critically low >=60 [facility] Comment on above: Performed By: #### C MP #### [facility] [address] [place] [address] Dr. Freda Wayne Globulin (S) [Mass/Vol] 3.3 g/dL Normal [facility] Comment on above: Performed By: #### C MP #### [facility] [address] [address] [address] Freda Wayne Glucose [Mass/Vol] 141 mg/dL Critically high 74-106 [facility] Comment on above: Performed By: #### C MP #### [facility] [address] [address] [address] Freda Wayne Potassium [Moles/Vol] 3.8 mmol/L Normal 3.4-5.0 [facility] Comment on above: Performed By: #### C MP #### [facility] [address] [address] [address] Freda Wayne Protein [Mass/Vol] 6.1 g/dL Normal 6.1-8.2 [facility] Comment on above: Performed By: #### C MP #### [facility] [address] [place] [address] Dr. Freda Wayne Sodium [Moles/Vol] 138 mmol/L Normal 137-145 [facility] Comment on above: Performed By: #### C MP #### [facility] [address] [place] [address] Dr. Freda Wayne Urea nitrogen [Mass/Vol] 13.0 mg/dL Normal 9.0-20.0 [facility] Comment on above: Performed By: #### C MP #### [facility] [address] [place] [address] Dr. Freda Wayne Urea nitrogen/Creatinine [Mass ratio] 10.0 mg/mg Normal [facility] Comment on above: Performed By: #### C MP #### [facility] [address] [place] [address] Dr. Freda Wayne BLOOD CULTURE ID PANELon A. baumannii Not detected Normal [facility] Comment on above: Performed By: #### B TIAGO #### [facility] [address] [place] [address] Dr. Freda Wayne BCID CONTROLS PASSED Normal [facility] Comment on above: Performed By: #### B TIAGO #### [facility] [address] [place] [address] Dr. Freda Wayne BCIDBTHD BLOOD CULTURE BOTTLE INFORMATION Normal [facility] Comment on above: Performed By: #### B TIAGO #### [facility] [address] [place] [address] Dr. Freda Wayne BCIDHD1 ANTIMICROBIAL RESIST ANCE GENES [facility] Comment on above: Performed By: #### B TIAGO #### [facility] [address] [place] [address] Dr. Freda Wayne BCIDHD2 SEE BELOW [facility] Comment on above: Result Comment: KPC- carbapenem resistance gene, mecA- methecillin resistance gene, van A/B- vancomycin resistance gene Note: Antimicrobial resitance can occur via multiple mechanisms. A Not Detected result for the [employer] antomicrobial resistance gene assays does not indicate antimicrobial susceptibility. Subculturing is required for specis identificationand susceptibility testing of isolates. Performed By: #### B TIAGO #### [facility] [address] [place] [address] Dr. Freda Wayne BCIDHD3 Positive [facility] Comment on above: Performed By: #### B TIAGO #### [facility] [address] [place] [address] Dr. Freda Wayne BCIDHD4 Negative [facility] Comment on above: Performed By: #### B TIAGO #### [facility] [address] [place] [address] Dr. Freda Wayne BCIDHD5 YEAST [facility] Comment on above: Performed By: #### B TIAGO #### [facility] [address] [place] [address] Dr. Freda Wayne BCIDHD6 SEE BELOW [facility] Comment on above: Result Comment: Note : All genus and species BCID [employer] results will be verified post subculturing via Maldi-Tof MS testing methodology. Performed By: #### B TIAGO #### [facility] [address] [place] [address] Dr. Freda Wayne Bottle Set: Set 1 [facility] Comment on above: Performed By: #### B TIAGO #### [facility] [address] [place] [address] Dr. Freda Wayne Bottle: Aerobic [facility] Comment on above: Performed By: #### B TIAGO #### [facility] [address] [place] [address] Dr. Freda Wayne Yarely albicans Not detected Normal [facility] Comment on above: Performed By: #### B TIAGO #### [facility] [address] [place] [address] Dr. Freda Wayne Yarely glabrata Not detected Normal [facility] Comment on above: Performed By: #### B TIAGO #### [facility] [address] [place] [address] Dr. Freda Wayne Yarely Krusei Not detected Normal [facility] Comment on above: Performed By: #### B TIAGO #### [facility] [address] [place] [address] Dr. Freda Wayne Yarely Parapsilosis Not detected Normal [facility] Comment on above: Performed By: #### B TIAGO #### [facility] [address] [place] [address] Dr. Freda Wayne Yarely Tropicalis Not detected Normal [facility] Comment on above: Performed By: #### B TIAGO #### [facility] [address] [place] [address] Dr. Freda Wayne E. Cloacae complex Not detected Normal [facility] Comment on above: Performed By: #### B TIAGO #### [facility] [address] [place] [address] Dr. Freda Wayne Enterobacteriaceae Detected Critically abnormal [facility] Comment on above: Performed By: #### B TIAGO #### [facility] [address] [place] [address] Dr. Freda Wayne Enterococcus Not detected Normal [facility] Comment on above: Performed By: #### B TIAGO #### [facility] [address] [place] [address] Dr. Freda Wayne Escheria coli Not detected Normal [facility] Comment on above: Performed By: #### B TIAGO #### [facility] [address] [place] [address] Dr. Freda Wayne K. oxytoca Not detected Normal [facility] Comment on above: Performed By: #### B TIAGO #### [facility] [address] [place] [address] Dr. Freda Wayne K. pneumoniae Detected Critically abnormal [facility] Comment on above: Performed By: #### B TIAGO #### [facility] [address] [place] [address] Dr. Freda Wayne KPC Resistant Gene Not detected Normal [facility] Comment on above: Performed By: #### B TIAGO #### [facility] [address] [place] [address] Dr. Freda Wayne List. monocytogenes Not detected Normal [facility] Comment on above: Performed By: #### B TIAGO #### [facility] [address] [place] [address] Dr. Freda Wayne mecA Resistant Gene Not Applicable Normal [facility] Comment on above: Performed By: #### B TIAGO #### [facility] [address] [place] [address] Dr. Freda Wayne Proteus Not detected Normal [facility] Comment on above: Performed By: #### B TIAGO #### [facility] [address] [place] [address] Dr. Freda Wayne Pseud. aeruginosa Not detected Normal [facility] Comment on above: Performed By: #### B TIAGO #### [facility] [address] [place] [address] Dr. Freda Wayne Seratia marcescens Not detected Normal [facility] Comment on above: Performed By: #### B TIAGO #### [facility] [address] [place] [address] Dr. Freda Wayne Site: left AC Normal [facility] Comment on above: Performed By: #### B TIAGO #### [facility] [address] [place] [address] Dr. Freda Wayne Staph. aureus Not detected Normal [facility] Comment on above: Performed By: #### B TIAGO #### [facility] [address] [place] [address] Dr. Freda Wayne Staphylococcus Not detected Normal [facility] Comment on above: Performed By: #### B TIAGO #### [facility] [address] [place] [address] Dr. Freda Wayne Strep. agalactiae Not detected Normal [facility] Comment on above: Performed By: #### B TIAGO #### [facility] [address] [place] [address] Dr. Freda Wayne Strep. pneumoniae Not detected Normal [facility] Comment on above: Performed By: #### B TIAGO #### [facility] [address] [place] [address] Dr. Freda Wayne Strep. pyogenes Not detected Normal [facility] Comment on above: Performed By: #### B TIAGO #### [facility] [address] [place] [address] Dr. Freda Wayne Streptococcus Not detected Normal [facility] Comment on above: Performed By: #### B TIAGO #### [facility] [address] [place] [address] Dr. Freda Vallejo/Kate Resist. Gene Not Applicable Normal [facility] Comment on above: Performed By: #### B TIAGO #### [facility] [address] [place] [address] Dr. Freda Wayne CBC W MANUAL DIFFon 06-03-20 21 ATYPICAL LYMPH # Normal [facility] Comment on above: Performed By: #### P OCGLUC #### [facility] [address] [place] [address] José Luis Kisha ATYPICAL LYMPH % Normal [facility] Comment on above: Performed By: #### P OCGLUC #### [facility] [address] [place] [address] José Luis Kisha BAND # Normal 0.0-0.3 [facility] Comment on above: Performed By: #### P OCGLUC #### [facility] [address] [place] [address] José Luis Kisha BAND % Normal 0-5 [facility] Comment on above: Performed By: #### P OCGLUC #### [facility] [address] [place] [address] José Luis Kisha BASOM # 0.00 103/ul Normal 0.00-0.10 [facility] Comment on above: Performed By: #### P OCGLUC #### [facility] [address] [place], [place] [id number] José Luis Kisha BASOM % 0.0 % Critically low 0.2-2.0 [facility] Comment on above: Performed By: #### P OCGLUC #### [facility] [address] [place] [address] José Luis Kisha BLAST # Normal [facility] Comment on above: Performed By: #### P OCGLUC #### [facility] [address] [place] [address] José Luis Kisha BLAST % Normal [facility] Comment on above: Performed By: #### P OCGLUC #### [facility] [address] [place] [address] José Luis Kisha CORRECTED WBC Normal 4.0-11.0 [facility] Comment on above: Performed By: #### P OCGLUC #### [facility] [address] [place] [address] José Luis Kisha EOS # 0.00 103/ul Normal 0.00-0.70 [facility] Comment on above: Performed By: #### P OCGLUC #### [facility] [address] [place] [address] José Luis Kisha EOS% 0.0 % Critically low 0.9-7.0 [facility] Comment on above: Performed By: #### P OCGLUC #### [facility] [address] [place] [address] José Luis Kisha HCT 41.0 % Critically low 42.0-54.0 [facility] Comment on above: Performed By: #### P OCGLUC #### [facility] [address] [place] [address] José Luis Kisha HGB 13.0 g/dl Critically low 14.0-18.0 [facility] Comment on above: Performed By: #### P OCGLUC #### [facility] [address] [place] [address] José Luis Kisha LYMPHM # 0.18 103/ul Critically low 1.20-3.80 [facility] Comment on above: Performed By: #### P OCGLUC #### [facility] [address] [place] [address] José Luis Kisha LYMPHM% 1.0 % Critically low 20.5-60.0 [facility] Comment on above: Performed By: #### P OCGLUC #### [facility] [address] [place] [address] José Luisdinh Mathuren MCH 28.6 pg Normal 25.9-34.0 [facility] Comment on above: Performed By: #### P OCGLUC #### [facility] [address] [address] José Luisdinh Mathuren MCHC 31.7 g/dl Normal 29.9-35.2 [facility] Comment on above: Performed By: #### P OCGLUC #### [facility] [address] [place] [address] José Luis Mathuren MCV 90.1 fL Normal 80.0-94.0 [facility] Comment on above: Performed By: #### P OCGLUC #### [facility] [address] [place] [address] José Luis Kisha METAMYELOCYTE # Normal [facility] Comment on above: Performed By: #### P OCGLUC #### [facility] [address] [place] [address] José Luis Kisha METAMYELOCYTE % Normal [facility] Comment on above: Performed By: #### P OCGLUC #### [facility] [address] [place] [address] José Luis Kisha MONOM# 0.55 103/ul Normal 0.30-0.80 [facility] Comment on above: Performed By: #### P OCGLUC #### [facility] [address] [place] [address] José Luis Kisha MONOM% 3.0 % Normal 1.7-12.0 [facility] Comment on above: Performed By: #### P OCGLUC #### [facility] [address] [place] [address] José Luisdinh Mathuren MPV 10.1 fL Normal 9.5-13.5 [facility] Comment on above: Performed By: #### P OCGLUC #### [facility] [address] [place], [place] [id number] José Luis Beard MYELOCYTE # Normal [facility] Comment on above: Performed By: #### P OCGLUC #### [facility] [address] [address] José Luis Beard MYELOCYTE % Normal [facility] Comment on above: Performed By: #### P OCGLUC #### [facility] [address] [address] José Luis Mathuren NRBC Normal [facility] Comment on above: Performed By: #### P OCGLUC #### [facility] [address] [address] José Luis Beard PLT 374 103/ul Normal 150-450 [facility] Comment on above: Performed By: #### P OCGLUC #### [facility] [address] [place] [address] José Luis Beard RBC 4.55 106/ul Critically low 4.70-6.10 [facility] Comment on above: Performed By: #### P OCGLUC #### [facility] [address] [place] [address] José Luis Beard RDW 15.6 % Critically high 11.0-15.0 [facility] Comment on above: Performed By: #### P OCGLUC #### [facility] [address] [place] [address] José Luis Beard SEG # 17.57 103/ul Critically high 1.40-6.50 [facility] Comment on above: Performed By: #### P OCGLUC #### [facility] [address] [place] [address] José Luis Mathuren SEG % 96.0 % Critically high 43.0-75.0 [facility] Comment on above: Performed By: #### P OCGLUC #### [facility] [address] [place] [address] José Luis Beard WBC 18.3 103/ul Critically high 4.0-11.0 [facility] Comment on above: Performed By: #### P OCGLUC #### [facility] [address] [place] [address] ABD/PELV W CONon 12-20-[address] ABD/PELV W CON EXAMINATION: CT [...] CINDI SOMMER Date: 2021-06-03 14:15 Normal [facility] CULTURE BLOODon 06-03-2021 Microscopic examination of blood, culture Culture Observations: NO GROWTH AT 5 DAYS. Normal [facility] Comment on above: Performed By: #### B LDCX2 #### [facility] [address] [place] [address] Dr. Freda Wayne Covid-19 PCR ([facility])on 05-16 SARS-CoV-2 (COVID-19) RNA SHRUTI+probe Ql (Unsp spec) Not detected Normal NOT DETECTED [facility] Comment on above: Result Comment: When diagnostic testing is negative, the possibility of a false negative should be considered in the context of a patient's recent exposures and the presence of clinical signs and symptoms consistent with SARS-CoV-2. This test is not yet approved or cleared by the [place] Food and Drug Administration (FDA). This test was developed by [employer], [place], [place]. The performance characteristics of this test were validated by [facility]. The results are not intended to be used as the sole means for clinical diagnosis or patient management decisions. [facility] is authorized under Clinical Laboratory Improvement Amendments [...] for this test is supported by the [place] of Health and Human Service's declaration that [...] used). Performed By: #### C BCMAN #### [facility] [address] [place] [address] Dr. Freda Wayne ER URINE PROFILEon 1 Bilirubin Ql (U) Negative Normal NEGATIVE [facility] Comment on above: Performed By: #### P OCGLUC #### [facility] [address] [place] [address] José Luis Kisha Clarity (U) CLEAR Normal CLEAR [facility] Comment on above: Performed By: #### P OCGLUC #### [facility] [address] [place] [address] José Luis Kisha Color (U) YELLOW Normal YELLOW [facility] Comment on above: Performed By: #### P OCGLUC #### [facility] [address] [place] [address] José Luis Kisha ERUAHD A micrscopic examina tion will be performed if indicated. Normal [facility] Comment on above: Performed By: #### P OCGLUC #### [facility] [address] [place] [address] José Luis Kisha Glucose Ql (U) 100 mg/dl Abnormal NEGATIVE [facility] Comment on above: Performed By: #### P OCGLUC #### [facility] [address] [place] [address] José Luis Kisha Hemoglobin Ql (U) Negative Normal NEGATIVE [facility] Comment on above: Performed By: #### P OCGLUC #### [facility] [address] [address] José Luis Kisha Ketones Ql (U) Negative Normal NEGATIVE [facility] Comment on above: Performed By: #### P OCGLUC #### [facility] [address] [place] [address] José Luis Kisha LEUKOCYTES Negative Normal NEGATIVE [facility] Comment on above: Performed By: #### P OCGLUC #### [facility] [address] [place] [address] José Luis Kisha Nitrite Ql (U) Negative Normal NEGATIVE [facility] Comment on above: Performed By: #### P OCGLUC #### [facility] [address] [place] [address] José Luis Kisha pH (U) 6.0 [pH] Normal 5-9 [facility] Comment on above: Performed By: #### P OCGLUC #### [facility] [address] [place] [address] José Luis Kisha Protein (U) [Mass/Vol] 30 mg/dL Abnormal NEGAT CYNTHIA/ TRACE [facility] Comment on above: Performed By: #### P OCGLUC #### [facility] [address] [place] [address] José Luis Kisha SPEC GRAVITY 1.020 Normal 1.005-<=1. 025 [facility] Comment on above: Performed By: #### P OCGLUC #### [facility] [address] [place] [address] José Luis Kisha UR MICRO IND INDICATED Normal [facility] Comment on above: Performed By: #### P OCGLUC #### [facility] [address] [place] [address] José Luis Kisha Urobilinogen Qn (U) 1.0 {Bassem'U}/dL Normal 0.2 - 1. 0 [facility] Comment on above: Performed By: #### P OCGLUC #### [facility] [address] [place] [address] José Luis Beard LACTATE/LACTIC ACIDon 2020 Lactate [Moles/Vol] 2.0 mmol/L Normal 0.7-2.0 [facility] Comment on above: Performed By: #### P OCGLUC #### [facility] [address] [place] [address] Dr. Freda Wayne LIPASEon 06-03-2021 Lipase [Catalytic activity/Vol] 207.0 U/L Normal 23.0-300.0 [facility] Comment on above: Performed By: #### P OCGLUC #### [facility] [address] [place] [address] Dr. Freda Wayne POINT OF CARE GLUCOSEon 05-16 Glucose [Mass/Vol] 107 mg/dL Critically high 74-106 [facility] Comment on above: Performed By: #### P OCGLUC #### [facility] [address] [place] [address] José Luis Beard PROF 14(COMP METB)on Albumin [Mass/Vol] 3.9 g/dL Normal 3.5-5.0 [facility] Comment on above: Performed By: #### P OCGLUC #### [facility] [address] [place] [address] Dr. Freda Wayne Albumin/Globulin [Mass ratio] 1.1 {ratio} Normal [facility] Comment on above: Performed By: #### P OCGLUC #### [facility] [address] [place] [address] Dr. Freda Wayne ALP [Catalytic activity/Vol] 181 U/L Critically high 38-126 [facility] Comment on above: Performed By: #### P OCGLUC #### [facility] [address] [place] [address] Dr. Freda Wayne ALT [Catalytic activity/Vol] 196 U/L Critically high 21-72 [facility] Comment on above: Performed By: #### P OCGLUC #### [facility] [address] [address] [address] Freda Wayne Anion gap [Moles/Vol] 15.4 mmol/L Normal Th e [facility] Comment on above: Performed By: #### P OCGLUC #### [facility] [address] [address] [address] Freda Wayne AST [Catalytic activity/Vol] 217 U/L Critically high 17-59 [facility] Comment on above: Performed By: #### P OCGLUC #### [facility] [address] [address] [address] Freda Wayne Bilirubin [Mass/Vol] 1.1 mg/dL Normal 0.2-1.3 [facility] Comment on above: Performed By: #### P OCGLUC #### [facility] [address] [address] [address] Freda Wayne Calcium [Mass/Vol] 9.7 mg/dL Normal 8.4-10.2 [facility] Comment on above: Performed By: #### P OCGLUC #### [facility] [address] [address] [address] Freda Wayne Chloride [Moles/Vol] 101 mmol/L Normal 98-107 [facility] Comment on above: Performed By: #### P OCGLUC #### [facility] [address] [address] [address] Freda Wayne CO2 [Moles/Vol] 24.4 mmol/L Normal 22.0-30.0 [facility] Comment on above: Performed By: #### P OCGLUC #### [facility] [address] [address] [address] Freda Wayne Creatinine [Mass/Vol] 1.16 mg/dL Normal 0.66-1.25 [facility] Comment on above: Performed By: #### P OCGLUC #### [facility] [address] [address] [address] Freda Wayne EGFR-AF COOK ISLANDER >60 Normal >=60 [facility] Comment on above: Performed By: #### P OCGLUC #### [facility] [address] [address] [address] Freda Wayne EGFR-NON AF [place] ISLANDER >60 Normal >=60 [facility] Comment on above: Performed By: #### P OCGLUC #### [facility] [address] [address] [address] Freda Wayne Globulin (S) [Mass/Vol] 3.6 g/dL Normal [facility] Comment on above: Performed By: #### P OCGLUC #### [facility] [address] [address] [address] Freda Wayne Glucose [Mass/Vol] 213 mg/dL Critically high 74-106 [facility] Comment on above: Performed By: #### P OCGLUC #### [facility] [address] [address] [address] Freda Wayne Potassium [Moles/Vol] 3.8 mmol/L Normal 3.4-5.0 [facility] Comment on above: Performed By: #### P OCGLUC #### [facility] [address] [address] [address] Freda Wayne Protein [Mass/Vol] 7.5 g/dL Normal 6.1-8.2 [facility] Comment on above: Performed By: #### P OCGLUC #### [facility] [address] [address] [address] Freda Wayne Sodium [Moles/Vol] 137 mmol/L Normal 137-145 [facility] Comment on above: Performed By: #### P OCGLUC #### [facility] [address] [address] [address] Freda Wayne Urea nitrogen [Mass/Vol] 16.0 mg/dL Normal 9.0-20.0 [facility] Comment on above: Performed By: #### P OCGLUC #### [facility] [address] [address] [address] Freda Wayne Urea nitrogen/Creatinine [Mass ratio] 13.8 mg/mg Normal [facility] Comment on above: Performed By: #### P OCGLUC #### [facility] [address] [place] [address] Dr. Freda Wayne PROTIMEon 06-03-2021 INR Coag (PPP) [Relative time] 1.05 {INR} Normal [facility] Comment on above: Performed By: #### P T, PTT #### [facility] [address] [place] [address] Dr. Freda Wayne INR GUIDELINES SEE BELOW Normal [facility] Comment on above: Result Comment: KAYLA RED INR: 2.0 - 3.0 CONDITIONS NOT LISTED BELOW 2.5 - 3.5 FOR PROSTHETIC HEART VALVE REPLACEMENT 2.5 - 3.5 RECURRENT THROMBOSIS Performed By: #### P T, PTT #### [facility] [address] [place] [address] Dr. Freda Wayne PT Coag (PPP) [Time] 11.3 s Normal 9.0-11.6 [facility] Comment on above: Performed By: #### P T, PTT #### [facility] [address] [place] [address] Dr. Freda Wayen PTTon 06-03-2021 aPTT Coag (Bld) [Time] 28.2 s Normal 22.3-36.2 [facility] Comment on above: Performed By: #### P T, PTT #### [facility] [address] [place] [address] Dr. Freda Wayne TROPONIN, HIGH SENSITIVITYon 06-03-2021 HSTROP 10.8 pg/mL Normal 4.0-42.2 [facility] Comment on above: Result Comment: CUT- OFF POINTS HAVE BEEN ESTABLISHED BASED ON THE FOURTH UNIVERSAL DEFINITIONS OF MYOCARDIAL INFARCTION. THE UPPER REFERENCE LIMIT (URL) OF TROPONIN, DEFINED THE 99TH PERCENTILE OF cTnI DISTRIBUTION IN A REFERENCE POPULATION, HAS BEEN CONFIRMED THE DECISION THRESHOLD FOR ND DIAGNOSIS. Performed By: #### P OCGLUC #### [facility] [address] [place] [address] Dr. Freda Wayne URINE MICROSCOPIC ONLYon BACTERIA NONE SEEN Normal NONE SEEN [facility] Comment on above: Performed By: #### P OCGLUC #### [facility] [address] [place] [address] José Luis Kisha Bacteria identified Cx Nom (U) NOT INDICATED Normal [facility] Comment on above: Performed By: #### P OCGLUC #### [facility] [address] [place] [address] José Luis Kisha CAST NONE SEEN Normal NONE SEEN [facility] Comment on above: Performed By: #### P OCGLUC #### [facility] [address] [place] [address] José Luis Kisha Crystals LM Nom (Urine sed) NONE SEEN Normal NONE SEEN [facility] Comment on above: Performed By: #### P OCGLUC #### [facility] [address] [place] [address] José Luis Kisha Epithelial cells LM Ql (Urine sed) RARE Normal NONE SEEN /RARE [facility] Comment on above: Performed By: #### P OCGLUC #### [facility] [address] [place] [address] José Luis Kisha MUCOUS TRACE Abnormal NONE SEEN [facility] Comment on above: Performed By: #### P OCGLUC #### [facility] [address] [place] [address] José Luis Kisha RBC 0-2 Normal 0-2 [facility] Comment on above: Performed By: #### P OCGLUC #### [facility] [address] [place] [address] José Luis Kisha WBC 0-2 Abnormal NONE SEEN [facility] Comment on above: Performed By: #### P OCGLUC #### [facility] [address] [place], [place] [id number] José Luis Kisha US SINGLE QUAD RT [...] by: CINDI SOMMER Date: 2021-06-03 09:27 Normal [facility] XR CHEST 1 Von 06-03-2021 XR [...] by: CINDI SOMMER Date: 2021-06-03 09:56 Normal [facility] Note - Heme Onc Sched ulingon 05-22-2021 Clinic Note - Heme Onc Scheduling Retrieve Patient Instructions: Patient Instructions: Patient Instructions: RetrievePatient Instructions COMMUNICATION ORDERS NOTES: Communication Orders NotesPer scheduling note on appointment wifes patient wants apt on 08/26 End of Visit Documentation: Clinic Location/Phone Number: Clinic Location/Phone Number: [place] [phone] End Of Visit MU Report Item: Visit Summary given or mailed to patientyes Mailed Appointments Electronic Signatures: Candice Shirley (PT ACCT REP) (Signed 22-May-2021 10:02) Authored: Retrieve Patient Instructions, COMMUNICATION ORDERS NOTES, End of Visit Documentation Last Updated: 22-May-2021 10:02 by Candice Shirley (PT ACCT REP) Normal [facility] Note - Heme Onc-Follo w Up Visiton 05-20-2021 Clinic Note - Heme Onc-Follow Up Visit Patient Visit Information: Visit Type: Follow Up Visit History of Present Illness: ID Statement: YUSEF CAR is a 71 year old Male Chief Complaint: Duodenal neuroendocrine tumor Interval History: 70 years old gentleman from [place], [place] who has been referred to me from [facility]. The patient complained of acid reflux [...] 6. No (more content not included)... Normal [facility] Clinic Note - Intakeon 05-20 Clinic Note [...] 3 Weights & HeightsDate: Weight/Scale Type:Height: 04-Feb-2021 09:10724 kg / standing quqoe596.8 cm 07-Jan-2021 13:21865 kg / standing zyobj702.8 cm 19-Dec-2020 13:90642 kg / standing .8 cm SpO2 (%)98 % SpO2 Patient Onroom [...] 6 or > notify clinician2 Electronic Signatures: Gladfelter, Edith (SARAH) (Signed 20-May-2021 12:55) Authored: Patient Visit Information, Vital Signs, Allergies, Outpatient Medication Profile, Notification, Travel History, Falls, Spiritual/Procedural, Oncology Nutrition Last Updated: 20-May-2021 12:55 by Edith Ruvalcaba) Normal [facility] - Chemistry and C hemistry - challengeon 05-01-2021 Glucose [Mass/Vol] 132 mg/dL above high threshold 74 - 99 [facility] [facility] [address] DO Work Phone: No Panel Informationon 05-01 [facility] [facility] [address] DO Work Phone: [email or web address]?={[email or web address] [id number]} [facility] [facility] 450 DO Work [...] make patient management decisions.Fact sheet for providers: https://www.fda.gov/media/407610/downloadFact sheet for patients: https://www.fda.gov/media/190053/downloadThis test has received FDA Emergency Use Authorization (EUA) and has been verified by [facility] ([facility]). This test is only authorized for the duration of time that circumstances exist to justify the authorization of the emergency use of in vitro diagnostic tests for the detection of SARS-CoV-2 virus and/or diagnosis of COVID-19 infection under section 564(b)(1) of the Act, 21 U.S.C. 360bbb-3(b)(1), unless the authorization is terminated or revoked sooner. [facility] is certified under CLIA-88 as qualified to perform high complexity testing. Testing is performed in the [facility] laboratories located at [address] [place] [address]. Provider Communicationon Provider Communication Dear Dr. Steele, [...] should questions arise Sincerely, Irwin Cespedes MD, [facility] Clinical Video Library Assistant Advanced Therapeutic Endoscopy Gastroenterology [facility] [employer] [facility] [address] [place] [address] Patient Care Team Care Team MemberRoleSpecialtyOffice Number Cedric HERNANDEZ, [facility] Care ProviderPhaneuf [facility] [phone] Active Problems Problems BPH with obstruction/lower urinary [...] Feb 05 2021 2:42PM EST (Author) Normal [facility] - Chemistry and C hemistry - challengeon 01-23-2021 Glucose [Mass/Vol] 106 mg/dL above high threshold 74 - 99 [facility] [facility] [address] DO Work Phone: No Panel Informationon 01-23 [facility] [place] [address] DO Work Phone: [email or web address]?={F [id number] [id number]} [facility] [facility] [address] DO Work Phone: [facility] [facility] [address] DO Work Phone: Complete Blood Count + Diffe rentialon 01-11-2021 Basophils/100 WBC (Bld) 0.4 % 0.0 - 2.0 U [facility] Work Phone: Erythrocyte distribution width (RBC) [Ratio] 15.6 % above high threshold See Below [facility] Work Phone: Comment on above: Reference Range: 11. 5 - 14.5 Hematocrit (Bld) [Volume fraction] 40.9 % below low threshold See Below [facility] Work Phone: [phone] Comment on above: Reference Range: 41. 0 - 52.0 Hemoglobin (Bld) [Mass/Vol] 12.9 g/dL below low threshold See Below [facility] Work Phone: [phone] Comment on above: Reference Range: 13. 5 - 17.5 Lymphocytes/100 WBC (Bld) 16.1 % See Below [facility] Work Phone: [phone] Comment on above: Reference Range: 13. 0 - 44.0 MCHC (RBC) [Mass/Vol] 31.5 g/dL below low threshold See Below [facility] Work Phone: [phone] Comment on above: Reference Range: 32. 0 - 36.0 MCV (RBC) [Entitic vol] 92 fL 80 - 100 U [facility] Work Phone: [phone] Monocytes/100 WBC (Bld) 7.4 % 2.0 - 10.0 U [facility] Work Phone: [phone] Neutrophils/100 WBC (Bld) 73.8 % See Below [facility] Work Phone: [phone] Comment on above: Reference Range: 40. 0 - 80.0 Platelets (Bld) [#/Vol] 360 10*3/uL 150 - [address] [facility] Work Phone: [phone] RBC (Bld) [#/Vol] 4.45 {x10E12/L} below low threshold See Below [facility] Work Phone: [phone] Comment on above: Reference Range: 4.5 0 - 5.90 WBC (Bld) [#/Vol] 7.7 10*3/uL 4.4 - 11.3 [facility] Work Phone: [phone] Complete Blood Count + Differential 0.03 {x10E9/L} See Below [facility] Work Phone: [phone] Comment on above: Reference Range: 0.0 0 - 0.10 Complete Blood Count + Differential 0.15 {x10E9/L} See Below [facility] Work Phone: Comment on above: Reference Range: 0.0 0 - 0.40 Complete Blood Count + Differential 0.57 {x10E9/L} See Below [facility] Work Phone: Comment on above: Reference Range: 0.0 5 - 0.80 Complete Blood Count + Differential 1.24 {x10E9/L} See Below [facility] Work Phone: Comment on above: Reference Range: 0.8 0 - 3.00 Complete Blood Count + Differential 5.68 {x10E9/L} above high threshold See Below [facility] Work Phone: Comment on above: Reference Range: 1.6 0 - 5.50 Complete Blood Count + Differential 2.0 % 0.0 - 6.[address] [facility] Work Phone: Complete Blood Count + Differential 0.3 % 0.0 - 0.[address] [facility] Work Phone: Comment on above: Immature Granulocyte Count (IG) includes promyelocytes, myelocytes and metamyelocytes but does not include bands. Percent differential counts (%) should be interpreted in the context of the absolute cell counts (cells/L). Laboratory - Chemistry and C hemistry - challengeon 01-11-2021 Albumin BCP dye [Mass/Vol] 4.1 g/dL 3.4 - 5.[address] [facility] Work Phone: ALP [Catalytic activity/Vol] 82 U/L 33 - [address] [facility] Work Phone: ALT With P-5'-P [Catalytic activity/Vol] 12 U/L 10 - 52 [facility] Work Phone: Comment on above: Patients treated wit h Sulfasalazine may generate falsely decreased results for ALT. Anion gap [Moles/Vol] 12 mmol/L 10 - 20 [facility] Work Phone: AST With P-5'-P [Catalytic activity/Vol] 12 U/L 9 - 39 [facility] Work Phone: Bilirubin [Mass/Vol] 0.5 mg/dL 0.0 - 1.2 [facility] Work Phone: Calcium [Mass/Vol] 9.8 mg/dL 8.6 - 10.3 [facility] Work Phone: Chloride [Moles/Vol] 103 mmol/L 98 - 107 [facility] Work Phone: CO2 [Moles/Vol] 30 mmol/L 21 - 32 [facility] Work Phone: Creatinine [Mass/Vol] 1.20 mg/dL See Below [facility] Work Phone: Comment on above: Reference Range: 0.5 0 - 1.30 Glucose [Mass/Vol] 147 mg/dL above high threshold 74 - [address] [facility] Work Phone: Potassium [Moles/Vol] 4.5 mmol/L 3.5 - 5.3 [facility] Work Phone: Protein [Mass/Vol] 7.0 g/dL 6.4 - 8.2 [facility] Work Phone: [phone] Sodium [Moles/Vol] 140 mmol/L 136 - 145 [facility] Work Phone: Urea nitrogen [Mass/Vol] 19 mg/dL 6 - [address] [facility] Work Phone: MRI Liver w/wo Contraston MR Liver WO and W contrast IV Normal [facility] Work Phone: No Panel Informationon 01-11 73 {mL/min/1.73m2} >60 [facility] Work Phone: Comment on above: CALCULATIONS OF LACEY MATED GFR ARE PERFORMED USING THE MDRD STUDY EQUATION FOR THE IDMS-TRACEABLE CREATININE METHODS. CLIN CHEM 2007;53:766-72 60 {mL/min/1.73m2} Abnormal >60 [facility] Work Phone: Prostate Specific Antigenon 01-11-2021 Prostate specific Ag [Mass/Vol] 0.29 ng/mL See Below [facility] Work Phone: Comment on above: Reference Range: 0.0 0 - 4.00The FDA requires that the method used for PSA assay be reported to the physician. Values obtained with different assay methods must not be used interchangeably. This test was performed at [facility] using the SquareClock PSA method, which is a sandwich immunoassay using chemiluminescence for quantitation. The assay is approvedfor measurement of prostate-specific antigen (PSA) in serum and may be used in conjunction with a digital rectalexamination in men 50 years and older as an aid in detection of prostate cancer. 8-Glgad-uksyqsncg inhibitors (e.g. Proscar, Finasteride, Avodart, Dutasteride and [...] visit. 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 He underwent EGD on 11/28/2020 at the [facility] in [facility] for a longstanding history of [...] Calcium 10 MG Oral Tablet Results/Data Gastrin, [id number] 08:49AMNon Ambulatory, Provider Ordering Provider: NEFTALI KNOWLES [id number] Test NameResultFlagReference Gastrin, Serum21 pg/mL0-100 Performed By: [facility] [address] [place] [id number] Line Operator: Katharine Vergara MD CT Abdomen and Pelvis with IV [id number] 05:[facility] Ordering Provider: NEFTALI KNOWLES [id number] Abdomen and Pelvis with [...] for staging purposes. COMPARISON: None. ACCESSION NUMBER(S): [id number] ORDERING CLINICIAN: NEFTALI KNOWLES TECHNIQUE: CT of [...] SocHx: Non-smoker Tobacco Use Screening; Status:Complete; Done: [id number] Perform:Not Applicable;Ordered; For:SocHx: Non-smoker; Ordered By:Neelima Brock; [...] Tablet Vitals Vital Signs Recorded: 08Jan2021 02:15PM Lxmxvwlkjde06.5 F Heart Rate76 Cqbkmxjf896 Xioykxkkw37 Height5 ft 10 in Bxikij874 lb BMI Wlroakythl02.87 kg/m2 BSA Calculated2.27 Tobacco Useb) No Fall [...] Results/Data CT Abdomen and Pelvis with IV [id number] 05:35PMNon Ambulatory, Provider Ordering Provider: NEFTALI KNOWLES [id number] Abdomen and Pelvis with [...] for st (more content not included)... Normal [employer] Tobacco Screening.on 021 Fall risk assessment a) No falls within the last year -Surgery- [facility] Work Phone: Tobacco use status [facility] b) No [facility]: Complete Blood Count + Diffe rentialon 12-26-2020 Hematocrit (Bld) [Volume fraction] Canceled [facility] Work [facility]: [phone] Hemoglobin (Bld) [Mass/Vol] [facility]: [phone] Platelets (Bld) [#/Vol] Canceled M [facility] Work Phone: 151 RBC (Bld) [#/Vol] Canceled MG-[facility] Work Phone: [phone] Complete Blood Count + Differential Canceled -[facility] Work Phone: [phone] Comment on above: Immature [...] 12-26-2020 Gastrin [Mass/Vol] 21 pg/mL 0-100 [facility] Work Phone: [phone] Comment on above: Performed By: MARISSA simmons[address] [place] [id number] Director: Katharine Vergara MD Laboratory - Chemistry and C hemistry - challengeon 12-26-2020 Albumin BCP dye [Mass/Vol] Canceled [facility] Work Phone: [phone] ALP [Catalytic activity/Vol] Canceled [facility] Work Phone: [phone] ALT With P-5'-P [Catalytic activity/Vol] Canceled [facility] Work Phone: [phone] Comment on above: Patients treated wit h Sulfasalazine may generate falsely decreased results for ALT. AST With P-5'-P [Catalytic activity/Vol] Canceled [facility] Work Phone: [phone] Bilirubin [Mass/Vol] Canceled MG-S [facility] Work Phone: [phone] Calcium [Mass/Vol] Canceled -[facility] Work Phone: [phone] Chloride [Moles/Vol] Canceled MG-S [facility] Work Phone: [phone] CO2 [Moles/Vol] Canceled [facility] Work Phone: [phone] Creatinine [Mass/Vol] Canceled - [facility] Work Phone: [phone] Glucose [Mass/Vol] Canceled -[facility] Work Phone: [phone] Potassium [Moles/Vol] Canceled [facility] Work Phone: [phone] Protein [Mass/Vol] Canceled -[facility] Work Phone: [phone] Sodium [Moles/Vol] Canceled [facility] Work Phone: [phone] Urea nitrogen [Mass/Vol] Canceled [facility] Work Phone: [phone] Abdomen and Pelvis with I V Contraston 12-25-2020 CT Abdomen and Pelvis W contrast IV Normal [facility] Work Phone: [phone] Complete Blood Count + Diffe rentialon 12-25-2020 Basophils/100 WBC (Bld) 0.2 % 0.0 - 2.0 M [facility] Work Phone: [phone] Erythrocyte distribution width (RBC) [Ratio] 15.7 % above high threshold See Below [facility] Work Phone: [phone] Comment on above: Reference Range: 11. 5 - 14.5 Hematocrit (Bld) [Volume fraction] 40.2 % below low threshold See Below [facility] Work Phone: [phone] Comment on above: Reference Range: 41. 0 - 52.0 Hemoglobin (Bld) [Mass/Vol] 13.0 g/dL below low threshold See Below [facility] Work Phone: [phone] Comment on above: Reference Range: 13. 5 - 17.5 Lymphocytes/100 WBC (Bld) 14.4 % See Below [facility] Work Phone: [phone] Comment on above: Reference Range: 13. 0 - 44.0 MCHC (RBC) [Mass/Vol] 32.3 g/dL See Below [facility] Work Phone: [phone] Comment on above: Reference Range: 32. 0 - 36.0 MCV (RBC) [Entitic vol] 89 fL 80 - 100 M [facility] Work Phone: [phone] Monocytes/100 WBC (Bld) 7.5 % 2.0 - 10.0 M [facility] Work Phone: [phone] Neutrophils/100 WBC (Bld) 76.9 % See Below [facility] Work Phone: [phone] Comment on above: Reference Range: 40. 0 - 80.0 Platelets (Bld) [#/Vol] 401 10*3/uL 150 - 450 [facility] Work Phone: [phone] RBC (Bld) [#/Vol] 4.50 {x10E12/L} See Below [facility] Work Phone: [phone] Comment on above: Reference Range: 4.5 0 - 5.90 WBC (Bld) [#/Vol] 11.4 10*3/uL above high threshold 4.4 - 11.3 [facility] Work Phone: [phone] Complete Blood Count + Differential 0.02 {x10E9/L} See Below [facility] Work Phone: [phone] Comment on above: Reference Range: 0.0 0 - 0.10 Complete Blood Count + Differential 0.08 {x10E9/L} See Below [facility] Work Phone: [phone] Comment on above: Reference Range: 0.0 0 - 0.40 Complete Blood Count + Differential 0.86 {x10E9/L} above high threshold See Below [facility] Work Phone: [phone] Comment on above: Reference Range: 0.0 5 - 0.80 Complete Blood Count + Differential 1.65 {x10E9/L} See Below [facility] Work Phone: [phone] Comment on above: Reference Range: 0.8 0 - 3.00 Complete Blood Count + Differential 8.78 {x10E9/L} above high threshold See Below [facility] Work Phone: [phone] Comment on above: Reference Range: 1.6 0 - 5.50 Complete Blood Count + Differential 0.7 % 0.0 - 6.0 [facility] Work Phone: [phone] Complete Blood Count + Differential 0.3 % 0.0 - 0.9 [facility] Work Phone: [phone] Comment on above: Immature Granulocyte Count (IG) includes promyelocytes, myelocytes and metamyelocytes but does not include bands. Percent differential counts (%) should be interpreted in the context of the absolute cell counts (cells/L). Gastrin, Serumon 12-25-2020 Gastrin [Mass/Vol] Canceled -Carolynn [facility] Work Phone: [phone] Laboratory - Chemistry and C hemistry - challengeon 12-25-2020 Albumin BCP dye [Mass/Vol] 4.3 g/dL 3.4 - 5.0 [facility] Work Phone: [phone] ALP [Catalytic activity/Vol] 88 U/L 33 - 136 [facility] Work Phone: [phone] ALT With P-5'-P [Catalytic activity/Vol] 11 U/L 10 - 52 -Surg [facility] Work Phone: [phone] Comment on above: Patients treated wit h Sulfasalazine may generate falsely decreased results for ALT. Anion gap [Moles/Vol] 15 mmol/L 10 - 20 MG- [facility] Work Phone: [phone] AST With P-5'-P [Catalytic activity/Vol] 12 U/L 9 - 39 MG-Surg [facility] Work Phone: [phone] Bilirubin [Mass/Vol] 0.4 mg/dL 0.0 - 1.2 MG-S [facility] Work Phone: [phone] Calcium [Mass/Vol] 9.8 mg/dL 8.6 - 10.3 MG-[facility]ynn [facility] Work Phone: [phone] Chloride [Moles/Vol] 104 mmol/L 98 - 107 MG-S [facility] Work Phone: [phone] CO2 [Moles/Vol] 23 mmol/L 21 - 32 MG-Surger [facility] Work Phone: [phone] Creatinine [Mass/Vol] 1.15 mg/dL See Below [facility] Work Phone: [phone] Comment on above: Reference Range: 0.5 0 - 1.30 Glucose [Mass/Vol] 101 mg/dL above high threshold 74 - 99 [facility] Work Phone: [phone] Potassium [Moles/Vol] 4.3 mmol/L 3.5 - 5.3 [facility] Work Phone: [phone] Protein [Mass/Vol] 7.5 g/dL 6.4 - 8.2 MG-[facility]ynn [facility] Work Phone: [phone] Sodium [Moles/Vol] 138 mmol/L 136 - 145 MG-[facility]ynn [facility] Work Phone: [phone] Urea nitrogen [Mass/Vol] 30 mg/dL above h igh threshold 6 - [facility]: [phone] No Panel Informationon 12-25 >60 >60 [facility] Work Phone: Comment on above: CALCULATIONS OF LACEY MATED GFR ARE PERFORMED USING THE MDRD STUDY EQUATION FOR THE IDMS-TRACEABLE CREATININE METHODS. 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 He will be undergoing serum gastrin level testing as well as cross-sectional imaging. I will obtain his EGD report from [facility]. It is currently unclear to me where [...] Duodenal well-differentiated neuroendocrine tumor History of Present [address] man referred to me from Dr. Johansen for duodenal well-differentiated neuroendocrine tumor. He underwent EGD on 11/28/2020 at the [facility] in [facility] for a longstanding history of [...] PYL TISSUE, UREASE Negative Normal NEGATIVE The [facility] Comment on above: Performed By: #### P OCGLUC #### [facility] [address] [address] [address] Freda Wayne POINT OF CARE GLUCOSEon 11-13 Glucose [Mass/Vol] 129 mg/dL Critically high 74-106 T he [facility] Comment on above: Performed By: #### P OCGLUC #### [facility] [address] [place] [id number] José Luis Beard Covid-19 PCR (CVDTB)on 11-13 SARS-CoV-2 (COVID-19) RNA SHRUTI+probe Ql (Unsp spec) Not detected Normal NOT DETECTED [facility] Comment on above: Result Comment: This test is not yet approved or cleared by the [place] FDA. When there are no FDA-approved or cleared tests available, and other criteria are met, FDA can make tests available under an emergency access mechanism called an Emergency Use Authorization (EUA). The EUA for this test is supported by the [place] of Health and Human Service's (HHS's) declaration [...] SARS-CoV-2. Performed By: #### C BCMAN #### [facility] [address] [place], [place] [address] Dr. Freda Wayne [place] HEPATOBILIARY SCAN W [...] by: MARCELLO LEE Date: 2020-06-18 10:24 Normal [facility] [place] [facility] Vital Signs Date Time Vital Sign Value Performing Clinician Facility 06-10-2023 09:30-0500 Diastolic blood pressure 63 mm[Hg] Sam Padilla MD Work Phone: [facility] 06-10-2023 09:30-0500 Heart rate 62 /min Sam Padilla MD Work Phone: [facility] 06-10-2023 09:30-0500 Respiratory rate 18 /min Sam Padlila MD Work Phone: [facility] 06-10-2023 09:30-0500 SaO2% (BldA) [Mass fraction] 96 % Sam Padilla MD Work Phone: [facility] 06-10-2023 09:30-0500 Systolic blood pressure 138 mm[Hg] Sam Padilla MD Work Phone: [facility] 06-10-2023 09:10-0500 Body temperature 97.9 [degF] Sam Padilla MD Work Phone: [facility] 06-10-2023 07:28-0500 Body height 177.8 cm Sam Padilla MD Work Phone: [facility] 06-10-2023 07:28-0500 Body mass index (BMI) [Ratio] 34.29 kg/m2 Sam Padilla MD Work Phone: [facility] 06-10-2023 07:28-0500 Body weight 108.41 kg Sam Padilla MD Work Phone: [facility] 01-08-2021 14:15-0400 Body height 177.8 cm Vanessa Steeel Work Phone: [facility] Work Phone: 01-08-2021 14:15-0400 Body mass index (BMI) [Ratio] 34.87 kg/m2 Vanessa Steele Work Phone: BZ[facility] Work Phone: 01-08-2021 14:15-0400 Body surface area Derived from formula 2.27 m2 Vanessa Steele Work Phone: [facility] Work Phone: 01-08-2021 14:15-0400 Body temperature 97.5 [degF] Vanessa Steele Work Phone: AY[facility]vde[facility] Work Phone: 01-08-2021 14:15-0400 Body weight 110.22 kg Vanessa Steele Work Phone: BK[facility]Ccyftqo[facility] Work Phone: 01-08-2021 14:15-0400 Diastolic blood pressure 81 mm[Hg] Vanessa Steele Work Phone: GD[facility]Dordybf[facility] Work Phone: 01-08-2021 14:15-0400 Heart rate 76 /min Vanessa Steele Work Phone: [facility]zlyimp[facility] Work Phone: 01-08-2021 14:15-0400 Systolic blood pressure 134 mm[Hg] Vanessa Dey Cedric Work Phone: [facility] Work Phone: Encounters Encounter Date Encounter Type Care Provider Facility Start: 12-02-2023 ambulatory Maribeth Tanner Facility:[facility] Start: 07-31-2023 [facility] Start: 07-30-2023 Orders Only Shaikh Jamie HERNANDEZ Work Phone: [facility] Comment on above: Stage 3a chronic kid spencer disease (HCC) (CMS/HCC) (Primary Dx); Type 2 diabetes mellitus with stage 3a chronic kidney disease, without long-term current use of insulin (HCC) (CMS/HCC) Start: 07-28-2023 Refill Gerald Hawkins Work Phone: [facility] Comment on above: Primary hypertension (CMS/HCC) (Primary Dx) Start: 07-28-2023 End: 07-30-2023 Patient encounter procedure Grace Justice PA-C Work Phone: [facility] Work Phone: Start: 07-28-2023 End: 07-30-2023 Subsequent hospital visit by physician Grace Justice PA-C Work Phone: [facility] Comment on above: Exam for clinical tr ial Start: 07-27-2023 ambulatory BALAJIAB [facility] Start: 07-15-2023 End: 07-15-2023 ambulatory SHAIKH JAMIE Not Available Start: 07-02-2023 ambulatory Maribeth Lue Facility:[facility] Start: 06-30-2023 ambulatory Maribeth Lue Facility:E [facility]ill[facility] Start: 06-29-2023 End: 06-29-2023 ambulatory RENEA YING Not Available Start: 06-10-2023 End: 06-11-2023 ambulatory [facility] Start: 06-10-2023 End: 06-10-2023 Subsequent hospital visit by physician Sam Padilla MD Work Phone: [facility] Comment on above: 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 Start: 05-26-2023 End: 05-26-2023 Subsequent hospital visit by physician [address] [facility] Comment on above: Primary malignant ne uroendocrine neoplasm of duodenum (CMS/HCC) Start: 05-22-2023 End: 05-23-2023 ambulatory [facility] Start: 05-19-2023 End: 05-20-2023 ambulatory NEFTALI STARR Not Available Start: 05-12-[address] Neftali Knowles Facility:[facility] Start: 05-09-2022 Chart Update Vanessa Penny ler Work Phone: [facility] Work Phone: Start: 04-29-2022 End: 04-29-2022 ambulatory Jeremiah Brooklynnary Facility:[id number] Start: 03-01-2022 AUDIT Vanessa Penny ler Work Phone: [facility] Work Phone: Start: 12-05-2021 ambulatory Ms. Lulu Calle Facilit y:[phone] Start: 12-03-2021 AUDIT Vanessa Penny ler Work Phone: [facility] Work Phone: Start: 10-31-2021 ambulatory Ms. Lulu Calle Facilit y:[phone] Start: 08-26-[address] Neftali Knowles Facility:[facility] Start: 06-04-2021 End: 06-06-2021 Evaluation and management of inpatient DR VANESSA STEELE Facility:[facility] Start: 05-20-[address] Neftali Knowles Facility:[facility] Start: 05-16-2021 Result Review Vanessa Penny ler Work Phone: VM-Blgrfqqlwnkciwxk-P [place] [facility] 450 DO Work Phone: Start: 05-01-2021 Chart Update Vanessa Penny ler Work Phone: FI-Bhzhkilwtuebpsqi-T [place] [facility] [address] DO Work Phone: Start: 04-26-2021 AUDIT Vanessa Dey Dil ler Work Phone: [facility] Work Phone: Start: 02-05-2021 Telephone encounter Vanessa F [place] Work Phone: LD-Qoxuvhggbwjruxyj-V [place] [address] DO Work Phone: Start: 01-23-2021 AUDIT Vanessa Dey Dil ler Work Phone: OC-Ixopjjchynikehun-R [place] 450 DO Work Phone: Start: 01-18-2021 AUDIT Vanessa Dey Dil ler Work Phone: [facility] Work Phone: Start: 01-10-2021 Office outpatient vi sit 15 minutes Vanessa Steele Work Phone: [facility] Work Phone: Start: 12-19-2020 Office outpatient ne w 60 minutes Vanessa Steele Work Phone: [facility] Work Phone: Start: 11-29-2020 Encounter for preprocedural laboratory examination DR XAVI THOMPSON [facility] Start: 11-28-2020 End: 11-28-2020 ambulatory MIQUEL HAWKINS Facility:[facility] Start: 11-26-2020 End: 11-27-[address] XAVI THOMPSON Facility:[facility] Start: 11-26-2020 End: 11-27-2020 Encounter for preprocedural laboratory examination DR XAVI THOMPSON Facility:[facility] Start: 06-18-2020 End: 06-19-[address] VANESSA STEELE Facility: Start: 10-08-2018 End: 10-09-2018 Patient encounter procedure DEFAULT PHYSICIAN Facility:[facility] Procedures Date Procedure Procedure Detail Performing Clinician Start: 07-28-2023 Unlisted us procedure Grace Justice PA-C Work Phone: Start: 06-10-2023 PULSE OXIMETRY, CONTINUOUS JAZLYN MELENDEZROSAMARIA Start: 06-10-2023 Esophagogastroduodenoscopy JAZLYNLUKE MELENDEZROSAMARIA Start: 06-10-2023 SURGICAL PATHOLOGY EXAM JAZLYN MELENDEZROSAMARIA Start: 06-10-2023 PULSE OXIMETRY, SPOT JAZLYN MCARTHUR Start: 06-10-2023 PLACE IN OUTPATIENT/HOSPITAL AMBULATORY SURGERY JAZLYNLUKE MELENDEZROSAMARIA Start: 06-10-2023 PULSE OXIMETRY, CONTINUOUS Sam caruso MD Work Phone: Start: 06-10-2023 Egd transoral biopsy single/multiple Jazlyn Mcarthur [employer]GER Work Phone: Start: 06-10-2023 Glucose [Mass/volume] in Serum or Plasma JAZLYN MCARTHUR Start: 06-10-2023 PULSE OXIMETRY, SPOT Sam Padilla MD Work Phone: Start: 06-10-2023 Glucose quantitative blood xcpt reagent strip Sam Padilla MD Work Phone: Start: 05-26-2023 CT CHEST ABDOMEN PELVIS W IV CONTRAST JAZLYN MCARTHUR Start: 05-26-2023 Ct thorax w/contrast material Jazlyn martinez SOCK [employer]IL [employer]GER Work Phone: Start: 05-22-2023 CBC W Auto [...] Screening for malign ant neoplasm of colon [facility] Start: 10-27-2028 DTaP/Tdap/Td vaccine (3 - Td or Tdap) DTaP/Tdap/Td vaccine (3 - Td or Tdap) [facility] Start: 10-27-2028 DTaP/Tdap/Td Vaccine s (4 - Td or Tdap) DTaP/Tdap/Td Vaccines (4 - Td or Tdap) [facility] Start: 03-06-2028 Lipid panel Lipid Panel [facility] Start: 06-10-2024 Diabetes mellitus screening Diabetes Screening [facility] Start: 02-25-2024 Medicare Annual Wellness (AWV) Medicare Annual Wellness (AWV) [facility] Start: 09-28-2023 Hemoglobin A1c measurement Diabetes: Hemoglobin A1C [facility] Start: 08-11-2023 End: 08-11-2023 Patient encounter procedure 08/11/2023 9:15 AM EST Office Visit [facility] [address] [place] [address] Shaikh Ayala MD [address] [place] [address] [facility] Start: 07-31-2023 End: 07-31-2023 Patient encounter procedure 07/31/2023 9:30 AM EST Office Visit [facility] [address] [address] Grace Justice, PACheyenneC [address] [place] [address] [place] [address] N28.1 - Renal cyst, left [facility] [place] Comment on above: N28.1 - Renal cyst, left Start: 06-23-2023 COVID-19 Vaccine (4 - Pfizer series) COVID-19 Vaccine (4 - Pfizer series) [facility] Start: 06-18-2023 End: 06-18-2023 Patient encounter procedure 06/18/2023 12:40 PM EST Office Visit [facility] [address] [place] [id number] [place] [address] [place] [address] [facility] Start: 06-10-2023 End: 06-10-2023 Patient encounter procedure 06/10/2023 8:30 AM EST Appointment [facility] [address] [place] [id number] [place] [address] [place] [address] [facility] Start: 04-29-2023 Diabetes mellitus screening Diabetes Screening [facility] Start: 04-29-2022 EGDANS, Provider: Jeremiah Magaña, Status: Pen, Time: 7:30 AM EGDANS, Provider: Jeremiah Magaña, Status: Pen, Time: 7:30 AM BT-Wgfvimvf-Zsimebdm 1500 Work Phone: Start: 11-13-2021 NPV, Provider: Deb Zavala, Status: Pen, Time: 11:20 AM NPV, Provider: Deb Zavala, Status: Pen, Time: 11:20 AM DS-Dhzejqrs-Vxtjgcoc 1500 Work Phone: Start: 05-01-2021 EGDANS, Provider: Irwin Cespedes, Status: Pen, Time: 8:30 AM EGDANS, Provider: Irwin Cespedes, Status: Pen, Time: 8:30 AM YY-Szywnroxfglzdcom-B jose albertoke SJW 450 DO Work Phone: Start: 01-23-2021 EUSWAYLON, Provider: Irwin Cespedes, Status: Pen, Time: 10:30 AM SHAVONNE, Provider: Irwin Cespedes, Status: Pen, Time: 10:[address] [facility] Work Phone: Start: 07-08-2020 Glaucoma screening Diabetes: R etinopathy Screening [facility] Start: 07-19-2016 Shingles vaccine (2 of 3) Shingles vaccine (2 of 3) [facility] Start: 07-19-2016 Zoster Vaccines (2 o f 3) Zoster Vaccines (2 of 3) [facility] Start: 2014 Abdominal aortic aneurysm screening Abdominal Aortic Aneurysm (AAA) Screening [facility] Start: 2009 Hepatitis B Vaccines (1 of 3 - Risk 3-dose series) Hepatitis B Vaccines (1 of 3 - Risk 3-dose series) [facility] Start: 2009 Respiratory Syncytia l Virus (RSV) or age 60 yrs+ (1 - 1-dose 60+ series) Respiratory Syncytial Virus (RSV) or age 60 yrs+ (1 - 1-dose 60+ series) [facility] Start: 1994 Screening for malign ant neoplasm of colon [facility] Start: 1989 Lipid panel Lipids [facility] Start: 1968 Hepatitis A Vaccines (1 of 2 - Risk 2-dose series) Hepatitis A Vaccines (1 of 2 - Risk 2-dose series) [facility] Start: 1967 Hepatitis C screening [facility] Start: 1961 Depression Screen Depression Screen [facility] Start: 1949 Medicare Annual Wellness Visit Medicare Annual Wellness Visit (AWV) [facility] Start: 1950 Screening for malign ant neoplasm of colon [facility] End: 05-26-2023 CT Chest and Abdomen and Pelvis W contrast IV [facility] Service Area Work Phone: Comment on above: Once for 1 Occurrenc es starting 05/26/2023 until 05/26/2023 Surgical pathology study [facility] Service Area Work Phone: Comment on above: Release Upon Orderin g for 1 Occurrences starting 06/10/2023 Release Upon Orderin g for 1 Occurrences starting 06/10/2023, 1 completed Immunizations Immunization Date Immunization Notes Care Provider Bronwyn hastings 03-20-2023 Influenza, High-dose Seasonal, Quadrivalent, Preservative Free Gerald Low MD Work Phone: [facility] 02-24-2023 pneumococcal polysaccharide vaccine, 23 valent Gerald Low MD Work Phone: [facility] 03-27-2022 Influenza, High-dose Seasonal, Quadrivalent, Preservative Free Gerald Low MD Work Phone: [facility] 10-15-2021 Comirnaty 30 MCG/0.3 ML Intramuscular Suspension Vanessa Steele Work Phone: PS-Qkdyfzcg-Jpknvzi e 1500 Work Phone: 03-25-2021 Pfizer-BioNTech COVI D-19 Vacc 30 MCG/0.3ML Intramuscular Suspension Vanessa Steele Work Phone: JS-Sjpvqldc-Nbnzuew e 1500 Work Phone: 03-01-2021 Fluzone High-Dose Quadrivalent 0.7 ML Intramuscular Suspension Prefilled Syringe Vanessa Steele Work Phone: WO-Vsqqvhar-Wcygblc e 1500 Work Phone: 08-07-2020 Pfizer-BioNTech COVI D-19 Vacc 30 MCG/0.3ML Intramuscular Suspension Vanessa Steele Work Phone: [facility] Work Phone: 07-17-2020 Pfizer-BioNTech COVI D-19 Vacc 30 MCG/0.3ML Intramuscular Suspension Vanessa Steele Work Phone: [facility] Work Phone: 02-24-2020 Fluzone High-Dose Quadrivalent 0.7 ML Intramuscular Suspension Prefilled Syringe Vanessa Dey [place] Work Phone: [facility] Work Phone: 03-09-2019 influenza, high dose seasonal, preservative-free Vanessatoñito Steele Work Phone: [facility] Work Phone: 11-22-2018 pneumococcal conjuga te vaccine, 13 valent Vanessa Dey [place] Work Phone: [facility] Work Phone: 10-27-2018 tetanus and diphther ia toxoids, adsorbed, preservative free, for adult use (2 Lf of tetanus toxoid and 2 Lf of diphtheria toxoid) Gerald Low MD Work Phone: [facility] 10-27-2018 tetanus toxoid, redu norris diphtheria toxoid, and acellular pertussis vaccine, adsorbed Vanessa F Cedric Work Phone: [facility] Work Phone: 05-21-2018 pneumococcal conjuga te vaccine, 13 valent Vanessa Steele Work Phone: [facility] Work Phone: 04-09-2018 influenza, high dose seasonal, preservative-free Vanessatoñito Steele Work Phone: [facility] Work Phone: 05-18-2017 influenza, high dose seasonal, preservative-free Vanessa Steele Work Phone: [facility] Work Phone: 05-24-2016 zoster vaccine, live Jeanieedu Steele Work Phone: [facility] Work Phone: 05-15-2016 zoster vaccine, live oPnce n Yissel Steele Work Phone: [facility] Work Phone: 03-13-2016 influenza, seasonal, injectable, preservative free Vanessa Steele Work Phone: [facility] Work Phone: 03-28-2015 influenza, seasonal, injectable, preservative free Vanessa Steele Work Phone: [facility] Work Phone: 03-14-2011 tetanus toxoid, redu norris diphtheria toxoid, and acellular pertussis vaccine, adsorbed Vanessa Steele Work Phone: [facility] Work Phone: 08-06-2009 novel influenza-H1N1 -09, preservative-free, injectable Vanessa Steele Work Phone: [facility] Work Phone: 05-12-2006 pneumococcal polysaccharide vaccine, 23 valent Vanessa Steele Work Phone: [facility] Work Phone: Payers Date Payer Category Payer Private Health Insurance ALICE DANGELO [id number] 2022-Present [address] [place] [address] [id number] 2016 Medicare [id number] 2016 Unknown 1959 Medicare [id number] 1959 Private Health Insurance [id number] 1949 Unknown [id number] 2.16.840.1.145817.3.579.2. 647 1949 Unknown [id number] 2.16.840.1.070599.3.579.2. 593 1949 Unknown [id number] 2.16.840.1.043059.3.579.2. 593 1949 Unknown [id number] 2.16.840.1.267497.3.579.2. 593 1949 Unknown [id number] 2.16.840.1.248534.3.579.2. 593 1949 Unknown [id number] 2.16.840.1.977710.3.579.2. 356 1949 Unknown [id number] 2.16.840.1.731000.3.579.2. 356 1949 Unknown [id number] 2.16.840.1.984695.3.579.2. 356 1949 Unknown [id number] 2.16.840.1.114011.3.579.2. 356 1949 Unknown [id number] 2.16.840.1.224271.3.579.2. 356 1949 Unknown [id number] 2.16.840.1.346043.3.579.2. 1069 1949 Unknown [id number] 2.16.840.1.315702.3.579.2. 1069 1949 Unknown [id number] 2.16.840.1.748476.3.579.2. 1245 1949 Unknown [id number] 2.16.840.1.055392.3.579.2. 1243 1949 Unknown [id number] 2.16.840.1.358338.3.579.2. 1243 1949 Unknown [id number] 2.16.840.1.958208.3.579.2. 1259 1949 Unknown [id number] 2.16.840.1.655728.3.579.2. 1259 1949 Unknown [id number] 2.16.840.1.764796.3.579.2. 1259 1949 Unknown [id number] 2.16.840.1.520908.3.579.2. 754 Social History Date Type Detail Facility Start: 02-18-2023 End: 06-10-2023 Non-smoker Non-smoker [facility] Tobacco smoking status RIIS Tobacco smoking consumption unknown [facility] Work Phone: Start: 1950 [facility]igned At [facility] Work [facility]: Start: 02-18-2023 End: 06-10-2023 Gender identity Not on file [facility] Start: 05-12-2023 End: 06-10-2023 Exposure to SARS-CoV-2 (event) Not sure [facility] Start: 06-10-2023 End: 07-15-2023 Tobacco smoking status NHIS Ex-smoker [facility] Work Phone: End: 06-15-1983 History of tobacco use Current smoker [facility] Work Phone: End: 06-15-1983 History of tobacco use Cigarette Smoker [facility] Work Phone: Start: 06-10-2023 End: 07-15-2023 Tobacco use and exposure Smokeless tobacco non-user [facility] Work Phone: Start: 06-10-2023 End: 07-15-2023 Alcohol intake Current drinker of alcohol (finding) [facility] Work Phone: Start: 06-10-2023 Alcohol Comment Social [facility] Work Phone: Within the last year , have you been afraid of your partner or ex-partner? No [facility] How often do you attend mu-ism or taoist services? Patient refused [facility] Are you [...] Identifier Dates Generic Supply 0 8 Case [id number] Start: 01-23-2021 Comment on above: Description: Convert ed from [facility]. Please see archived information for full log information. USE DIRECTED ONCE TEST [id number] Start: 06-22-2023 Clinical Notes 11-28-2020 to 07-27-2023 [...] Follow-up with our cardiology office in the [facility] in the next 2 to 4 weeks [...] internal jugular vein was obtained. A 6 [employer] [place] 11 cm sheath was inserted without difficulty. [...] left radial artery was obtained. A 6 [employer] Helenian glide sheath was inserted without difficulty. Bilateral [...] INDICATIONS: Nonsustained ventricular tachycardia, abnormal stress test [facility] 07-10-2023 Note Frequent PVCs, bigemeny, NSVT Un iversity [facility] 07-10-2023 Note 4 beat NSVT noted on treadmill stress test- ordered cardiac cath for further ischemia evaluation with recent near syncope, abnormal EKG and stress test, chest pain [facility] 07-10-2023 Note Recently admitted to [facility] for near syncope, bradycardia, abnormal stress test with NSVT while on treamill. Frequent PVCS [facility] 06-10-2023 Hospital Discharge instructions Sam Padilla MD [...] having your procedure, call the [facility] to be advised whether a visit to [...] or looks infected. documented in this encounter [facility] Work Phone: 06-10-2023 Miscellaneous Notes [...] Other TIA Erythromycin GI bleeding Lisinopril Cough BAND TUMBLER/Current Medications: (Not in a hospital admission) Current [...] and P ) documented in this encounter [facility] Work Phone: 06-10-2023 Note Formatting of this n ote is different from the original. Patient: Yusef Car Pre-sedation Evaluation: Sedation necessary for: Immobility and Analgesia Requesting service: GI History of Present Illness: H/o duodenal NET Past Medical History: Diagnosis Date Diabetes mellitus ([facility]) Hyperlipidemia Hypertension Principle problems: Patient Active Problem List Diagnosis Date Noted Primary malignant neuroendocrine neoplasm of duodenum ([facility]/HCC) 04/28/2023 Allergies: Allergies Allergen Reactions Ciprofloxacin Other TIA Erythromycin GI bleeding Lisinopril Cough BAND TUMBLER/Current Medications: (Not in a hospital admission) Current [...] (This is my H and P ) [facility] Work Phone: 06-10-2023 Note Formatting of this n ote is different from the original. Patient: Yusef Car Pre-sedation Evaluation: Sedation necessary for: Immobility and Analgesia Requesting service: GI History of Present Illness: H/o duodenal NET Past Medical History: Diagnosis Date Diabetes mellitus ([facility]) Hyperlipidemia Hypertension Principle problems: Patient Active Problem List Diagnosis Date Noted Primary malignant neuroendocrine neoplasm of duodenum ([facility]/HCC) 04/28/2023 Allergies: Allergies Allergen Reactions Ciprofloxacin Other TIA Erythromycin GI bleeding Lisinopril Cough BAND TUMBLER/Current Medications: (Not in a hospital admission) Current [...] (This is my H and P ) [facility] Work Phone: 01-10-2021 Chief complaint Narrative - Reported An interactive audio and video telecommunication system which permits real time communications between the patient (at the originating site) and provider (at the distant site) was utilized to provide this telehealth service.Verbal consent was requested and obtained from YUSEF CAR on this date, 01/10/2021 09:30 AM , for a telehealth visit.Duodenal neuroendocrine tumor [facility] Work Phone: 11-28-2020 History of Present illness Narrative 70-year-old man referred to me from Dr. Johansen for duodenal well-differentiated neuroendocrine tumor. He underwent EGD on 11/28/2020 at the [facility] in [facility] for a longstanding history of [...] alcohol, no illicit drug useHe is retired [facility] Work Phone: 11-28-2020 History of Present illness Narrative 70-year-old man with duodenal well-differentiated neuroendocrine tumor. He underwent EGD on 11/28/2020 at the [facility] in [facility] for a longstanding history of [...] visit with the patient and his . [facility] Work Phone: Evaluation note Diagnosis Primary malignant neuroendocrine neoplasm of duodenum (CMS/HCC) documented in this encounter [facility] Work Phone: Evaluation note* Diagnosis Primary malignant neuroendocrine neoplasm of duodenum (CMS/HCC) documented in this encounter [facility] Work Phone: Evaluation note* Diagnosis Primary malignant neuroendocrine neoplasm of duodenum (CMS/HCC)- Primary documented in this encounter [facility] Work Phone: Evaluation note* Diagnosis Primary hypertension (CMS/HCC)- Primary Unspecified essential hypertension documented in this encounter [facility] HealthcareEvaluation note* Diagnosis Exam for clinical trial [...] wasreferred to the [facility] at [facility] by his provider, Ania Foster CNP. 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 CAR is of Irish and Amharic descent. There is no known Ashkenazi Latter Day ancestry. Consanguinity was denied. No genetic testing has been done in the family before. [facility] Work Phone: History of Present illness NarrativePlease see previous genetics note.[facility] Work Phone: Summary Purpose Family History No [...] Referral Specialty Diagnoses / Procedures Referred By William t Referred To Contact Radiology Diagnoses Primary malignant neuroendocrine neoplasm of duodenum (CMS/HCC) Procedures CT chest abdomen pelvis w IV contrast Jazlyn Mcarthur APRN-OIL GAUGER [id number] [facility] [place] [phone] Referral ID Status Reason Start Date Expiration Date Visits Requested Visits Authorized [id number] Pending Review Perform Procedure 05/19/2023 05/18/2024 1 1 Specialty Diagnoses / Procedures Referred By Contact Referred To Contact Gastroenterology Diagnoses Primary malignant neuroendocrine neoplasm of duodenum (CMS/HCC) Procedures EGD WA ESOPHAGOGASTRODUODENOSCOPY TRANSORAL DIAGNOSTIC WA EGD TRANSORAL BIOPSY SINGLE/MULTIPLE Jazlyn Mcarthur, SOCK BOARDER-OIL GAUGER [id number] [facility] [place] [phone] Referral ID Status Reason Start Date Expiration Date V isits Requested Visits Authorized [id number] Pending Review 05/19/2023 05/18/2024 1 1 Specialty Diagnoses / Procedures Referred By Contac t Referred To Contact Radiology Diagnoses Exam for clinical trial Procedures US COMPARISON OF OUTSIDE FILMS Grace Justice PA-C [address] [facility] [address] [place] [address] Referral ID Status Reason Start Date Expiration Date V isits Requested Visits Authorized [id number] Pending Review 07/28/2023 07/27/2024 1 1 Additional Source Comments (unrecognized sect ion and content) No Status Records FoundNo Status Records FoundNo Status Records FoundNo Status Records FoundNo Status Records FoundNo Status Records FoundNo Status Records FoundNo Status Records FoundNo Status Records FoundNo Status Records FoundNo Status Records FoundNo Status Records Found INFORMATION SOURCE (unrecogn ized section and content) DATE CREATED AUTHOR 10/12/2018 [facility] DATE CREATED AUTHOR AUTHOR'S ORGANIZ ATION 06/13/2021 [facility] DATE CREATED AUTHOR AUTHOR'S ORGANIZ ATION 12/06/2021 [employer] DATE CREATED AUTHOR AUTHOR'S ORGANIZ ATION 05/14/2022 [facility] DATE CREATED AUTHOR AUTHOR'S ORGANIZ ATION 09/17/2022 [facility] DATE CREATED AUTHOR AUTHOR'S ORGANIZ ATION 05/28/2023 [facility] DATE CREATED AUTHOR AUTHOR'S ORGANIZ ATION 07/01/2023 [facility] DATE CREATED AUTHOR AUTHOR'S ORGANIZ ATION 07/16/2023 [facility] DATE CREATED AUTHOR AUTHOR'S ORGANIZ ATION 07/31/2023 [facility] Die[facility] DATE CREATED AUTHOR AUTHOR'S ORGANIZ ATION 08/01/2023 [facility] DATE CREATED AUTHOR AUTHOR'S ORGANIZ ATION 08/02/2023 [facility] DATE CREATED AUTHOR AUTHOR'S ORGANIZ ATION 08/02/2023 [facility] Reason for Visit (unrecogniz ed section and content) Specialty Diagnoses / Procedures Referred By William t Referred To Contact Radiology Diagnoses Primary malignant neuroendocrine neoplasm of duodenum (CMS/HCC) Procedures CT chest abdomen pelvis w IV contrast Jazlyn Mcarthur APRN-OIL GAUGER [id number] [facility] [place] [place] [address] Referral ID Status Reason Start Date Expiration Date Visits Requested Visits Authorized [id number] Pending Review Perform Procedure 05/19/2023 05/18/2024 1 1 Specialty Diagnoses / Procedures Referred By Contact Referred To Contact Gastroenterology Diagnoses Primary malignant neuroendocrine neoplasm of duodenum (CMS/HCC) Procedures EGD WA ESOPHAGOGASTRODUODENOSCOPY TRANSORAL DIAGNOSTIC WA EGD TRANSORAL BIOPSY SINGLE/MULTIPLE Jazlyn Mcarthur SOCK BOARDER-OIL GAUGER [address] [facility] [place] [phone] Referral ID Status Reason Start Date Expiration Date V isits Requested Visits Authorized [id number] Pending Review 05/19/2023 05/18/2024 1 1 Reason Comments New Med Request Specialty Diagnoses / Procedures Referred By Contac t Referred To Contact Radiology Diagnoses Exam for clinical trial Procedures US COMPARISON OF OUTSIDE FILMS Grace Justice PA-C [address] [address] Referral ID Status Reason Start Date Expiration Date V isits Requested Visits Authorized [id number] Pending Review 07/28/2023 07/27/2024 1 1 Care Teams (unrecognized sec tion and content) Shearing Machine Feeder Relationship Specialty Start Date End Date Renea Ying DO [address] [facility] [place] [address] PCP - General Family Medicine 05/26/23 Shearing Machine Feeder Relationship Specialty Start Date End Date Renea Ying DO [address] [place] [address] PCP - General Family Medicine 05/26/23 Shearing Machine Feeder Relationship Specialty Start Date End Date Renea Ying DO [address] [place] [address] PCP - General Family Medicine 05/26/23 Shearing Machine Feeder Relationship Specialty Start Date End Date Shaikh Ayala MD [address] [place] [phone] PCP - General Internal Medicine 07/15/23 Shearing Machine Feeder Relationship Specialty Start Date End Date Shaikh Ayala MD [address] [place] [phone] PCP - General Internal Medicine 07/15/23 FOR [...] BE BASED ON THE PRIMARY CLINICAL RECORDS. [facility] [employer] [facility]. provides no warranty or guarantee of the accuracy or completeness of information in this document.
[2023-08-12 09:46] LABS: Estimated Average Glucose 131 mg/dL; Glycohemoglobin A1C 6.2 % (4.5-6.2)
[2023-08-18 00:08] LABS: Metanephrine, Pl <25.0 pg/mL (0.0-88.0); Normetanephrine, Pl 51.2 pg/mL (0.0-285.2)
== END 2023-08-12 08:10 | disposition home or self-care (01) ==
LOC: LAB 08:10
PROVIDERS: PCP Internal Medicine; Visit Provider Internal Medicine
DX: E27.8 Other specified disorders of adrenal gland (principal); E11.22 Type 2 diabetes mellitus with diabetic chronic kidney disease; N18.31 Chronic kidney disease, stage 3a
CPT/HCPCS: 36415; 82088; 82533; 83036; 83835

== ENCOUNTER 2023-10-07 17:20 | Emergency (ER) | payer MEDICARE, OTHER, SELFPAY ==
[2023-10-07 17:23] VITALS: BP 135/78; PULSE 93; TEMP 36.7; O2SAT 93; BMI 33.0
--- NOTE | 2023-10-07 17:44 | ED.FEVER1 ---
HPI - Fever General Chief Complaint: Fever Stated Complaint: Post operative complications Time Seen by Provider: 10/07/23 17:29 Source: patient Mode of arrival: walk-in Limitations: no limitations History of Present Illness HPI Narrative: Patient has an endocrine tumor diagnosed a couple of years ago. He had it removed and now gets watched regularly. He said that in June they found another suspicious area and so today he went to for EGD and subsequent removal of the rumor. he said that the procedure went well. About 3o minutes after he got home, he felt chilled. His took his temp and it was 100.6F. He tried to get outside and avoid wearing any blankets or other warming items but his temp remained elevated about an hour later - once again it was 100.6F. The decided to bring the patient to the ED for evaluation. Related Data Home Medications ?Medication ?Instructions ?Recorded ?Confirmed allopurinol 300 mg tablet 300 mg PO DAILY 07/09/23 10/07/23 fluticasone propionate 50 1 spray intranasal DAILY PRN 07/09/23 07/10/23 mcg/actuation nasal allergy symptoms spray,suspension (24 Hour Allergy Relief) furosemide 20 mg tablet 20 mg PO DAILY 07/09/23 10/07/23 losartan 100 mg tablet 100 mg PO DAILY 07/09/23 10/07/23 omeprazole 40 mg capsule,delayed 40 mg PO DAILY 07/09/23 10/07/23 release rosuvastatin 10 mg tablet 20 mg PO DAILY 07/09/23 10/07/23 bisoprolol fumarate 10 mg tablet 10 mg PO BID 10/07/23 10/07/23 glimepiride 4 mg tablet 4 mg PO DAILY 10/07/23 10/07/23 pantoprazole 40 mg tablet,delayed 40 mg PO BID 10/07/23 10/07/23 release sucralfate 1 gram tablet (Carafate) 1 g PO Q6H 10/07/23 10/07/23 tamsulosin 0.4 mg capsule 0.4 mg PO DAILY 10/07/23 10/07/23 Allergies Allergy/AdvReac Type Severity Reaction Status Date / Time ciprofloxacin [From Cipro] Allergy Severe Verified 07/09/23 14:36 erythromycin base Allergy Severe Verified 07/09/23 14:36 lisinopril Allergy Severe Verified 07/09/23 14:36 [facility] Medical History Bradycardia with 31-40 beats per minute ?R00.1 - Bradycardia, unspecified (ICD-10) Paroxysmal cardiac arrhythmia ?I49.8 - Other specified cardiac arrhythmias (ICD-10) Dizziness ?R42 - Dizziness and giddiness (ICD-10) Edema ?R60.9 - Edema, unspecified (ICD-10) Gout ?M10.9 - Gout, unspecified (ICD-10) Rotator cuff injury ?S46.009A - Unspecified injury of muscle(s) and tendon(s) of the rotator cuff of unspecified shoulder, initial encounter (ICD-10) Surgical History FH: cholecystectomy ?Z83.79 - Family history of other diseases of the digestive system (ICD-10) History of appendectomy ?Z90.49 - Acquired absence of other specified parts of digestive tract (ICD-10) Family History Father Family history of cancer Family history of diabetes mellitus Family history of hypertension Mother Family history of cancer Family history of hypertension Social History Within the past year, how often did you have a drink containing alcohol: never Score interpretation: A score less than 4 is consistent with normal alcohol consumption. Smoking status: Former smoker Non-prescribed substance use: denies use Previous occupational history: retired Highest level of school completed/degree received: some college, no degree Are you now , , , , never or living with a partner: In a typical week, how many times do you talk on the telephone with family, friends, or neighbors: 3 or more times per week How often do you get together with friends or relatives: 3 or more times per week How often do you attend presybeterian or spiritism services: never Little interest or pleasure in doing things: not at all Feeling down, depressed, or hopeless: not at all Feel stressed/tense/nervous/anxious/difficulty sleeping: not at all Do you think of yourself as: straight/heterosexual Gender Identity: male Exam Narrative Exam Narrative: Nurses notes and vital signs reviewed and patient is not hypoxic. afebrile General: Well-appearing and in no apparent distress. Skin: Warm, dry, no pallor noted. No rash. Head: Normocephalic, atraumatic. Neck: Supple, non-tender. No sore lymphadenopathy Eye: Pupils are equal, round and EOMI. No scleral icterus. Ears, Nose, Mouth, and Throat: Oral mucosa is slightly dry Cardiovascular: Regular Rate and Rhythm without murmur, gallop or rub. Respiratory: No accessory muscle use or respiratory distress. Lungs are clear to auscultation, no wheezing, rales or rhonchi Back: No CVA tenderness Musculoskeletal: normal ROM GI: Abdomen is soft, non-distended. Normal bowel sounds. No masses appreciated. No tenderness to palpation. No rebound, guarding, or rigidity noted. Neurological: A&O x4. No cranial nerve dysfunction observed. No truncal ataxia. Moves all extremities. Sensation intact. Psychiatric: Cooperative and interactive. Normal mood and affect. Constitutional Vital Signs, click to edit/add: Last Vital Signs Temp 98.1 F 10/07/23 17:23 Pulse 80 10/07/23 18:46 Resp 18 10/07/23 18:46 BP 160/85 H 10/07/23 18:46 Pulse Ox 96 10/07/23 18:46 O2 Del Method Room Air 10/07/23 18:46 Course Vital Signs Vital signs: Vital Signs Temperature 98.1 F 10/07/23 17:23 Pulse Rate 93 H 10/07/23 17:23 Respiratory Rate 16 10/07/23 17:23 Blood Pressure 135/78 10/07/23 17:23 Pulse Oximetry 93 L 10/07/23 17:23 Oxygen Delivery Method Room Air 10/07/23 17:23 Temperature 98.1 F 10/07/23 17:23 Pulse Rate 80 10/07/23 18:46 Respiratory Rate 18 10/07/23 18:46 Blood Pressure 160/85 H 10/07/23 18:46 Pulse Oximetry 96 10/07/23 18:46 Oxygen Delivery Method Room Air 10/07/23 18:46 MDM - Fever MDM Narrative Medical decision making narrative: In the ED at this time, the patient is afebrile. Exam is unremarkable. He does not have any abdominal pain. He does not have any flank pain. He denied any nasal congestion, sore throat, ear pain, cough, nausea, vomiting or diarrhea. He had some Jell-O a couple hours after the procedure and tolerated that well. He has had not had any solid food and is supposed to be clear liquids only until tomorrow morning. Peripheral IV established and blood drawn and sent for testing. Urine also obtained and sent for testing. WBC 19.3. Hb 13. UA with ketones and >1000glucose but no evidence of UTI. CXR ordered. CXR did not reveal infiltrate, free air, or other worrisome findings. WBC may be reactive At this point he does not have pneumonia or UTI. He does not have abdominalpain, nausea, vomiting or diarrhea. Patient informed of all this and was discharged home with recommendation to take tylenol if fever returns. he can always return to the ED if he worsens. Lab Data Attestation: I reviewed the patient's lab results. Labs: Lab Results 10/07/23 10/07/23 Range/Units 17:48 17:50 WBC 19.3 H (4.0-11.0) 10^3/uL RBC 4.51 L (4.70-6.10) 10^6/uL Hgb 12.9 L (14.0-18.0) g/dL Hct 40.7 L (42.0-54.0) % MCV 90.2 (80.0-94.0) fL MCH 28.6 (25.9-34.0) pg MCHC 31.7 (29.9-35.2) g/dL RDW 14.9 (11.0-15.0) % Plt Count 377 (150-450) 10^3/uL MPV 10.2 (9.5-13.5) fL Neut % (Auto) 89.5 H (43.0-75.0) % Lymph % (Auto) 6.1 L (20.5-60.0) % Borden % (Auto) 3.8 (1.7-12.0) % Eos % (Auto) 0.1 L (0.9-7.0) % Baso % (Auto) 0.2 (0.2-2.0) % Neut # (Auto) 17.3 H (1.4-6.5) 10^3/uL Lymph # (Auto) 1.2 (1.2-3.8) 10^3/uL Borden # (Auto) 0.7 (0.3-0.8) 10^3/uL Eos # (Auto) 0.0 (0.0-0.7) 10^3/uL Baso # (Auto) 0.0 (0.0-0.1) 10^3/uL Abs Immat Gran (auto) 0.06 H (0.00-0.03) 10^3/uL Imm/Tot Granulo (auto) 0.3 (0.0-0.5) % Sodium 140 (136-145) mmol/L Potassium 4.0 (3.5-5.1) mmol/L Chloride 103 (98-107) mmol/L Carbon Dioxide 22.7 (21.0-32.0) mmol/L Anion Gap 18.3 BUN 18.0 (7.0-18.0) mg/dL Creatinine 1.39 H (0.70-1.30) mg/dL Est GFR ( Amer) >60 (>=60) Est GFR (Non-Af Amer) 50 L (>=60) BUN/Creatinine Ratio 12.9 Glucose 193 H (74-106) mg/dL Calcium 9.5 (8.5-10.1) mg/dL Urine Color Lt. yellow (YELLOW) Urine Clarity Clear (CLEAR) Urine pH 5.5 (5.0-9.0) Ur Specific Verbena 1.020 (1.005-1.025) Urine Protein Negative (NEG/TRACE) mg/dL Urine Glucose (UA) >=1000 A (NEGATIVE) mg/dL Urine Ketones Trace A (NEGATIVE) mg/dL Urine Occult Blood Negative (NEGATIVE) Urine Nitrite Negative (NEGATIVE) Urine Bilirubin Negative (NEGATIVE) Urine Urobilinogen 0.2 (0.2-1.0) EU/dL Ur Leukocyte Esterase Negative (NEGATIVE) Discharge Plan Discharge Stand Alone Forms: Portal Instructions Chief Complaint: Fever Clinical Impression: Fever of unknown origin Patient Disposition: Home, Self-Care Time of Disposition Decision: 19:07 Prescriptions / Home Meds: No Action glimepiride 4 mg tablet 4 mg PO DAILY tamsulosin 0.4 mg capsule 0.4 mg PO DAILY sucralfate [Carafate] 1 gram tablet 1 g PO Q6H pantoprazole 40 mg tablet,delayed release (DR/EC) 40 mg PO BID bisoprolol fumarate 10 mg tablet 10 mg PO BID allopurinol 300 mg tablet 300 mg PO DAILY furosemide 20 mg tablet 20 mg PO DAILY losartan 100 mg tablet 100 mg PO DAILY omeprazole 40 mg capsule,delayed release(DR/EC) 40 mg PO DAILY rosuvastatin 10 mg tablet 20 mg PO DAILY fluticasone propionate [24 Hour Allergy Relief] 50 mcg/actuation spray,suspension 1 spray intranasal DAILY PRN (Reason: allergy symptoms) Rx Instructions: administer into each nostril Print Language: Vietnamese Instructions: Fever in Adults (ED) Referrals: Shaikh Ayala MD [Primary Care Provider] - 1 week
[2023-10-07] MEDS: 0.9 % SODIUM CHLORIDE 1,000 ML 1000 ML IV (17:54)
[2023-10-07 18:00] LABS: Bilirubin Urine NEGATIVE (NEGATIVE); Blood Urine NEGATIVE (NEGATIVE); Clarity Urine CLEAR (CLEAR); Color Urine LT. YELLOW (YELLOW); Glucose Urine UA >=1000 mg/dL (NEGATIVE); Ketones Urine TRACE mg/dL (NEGATIVE); Leukocyte Esterase Urine NEGATIVE (NEGATIVE); Nitrite Urine NEGATIVE (NEGATIVE); Protein Urine NEGATIVE (NEG/TRACE); Urobilinogen Urine 0.2 EU/dL (0.2-1.0); pH Urine 5.5 (5.0-9.0)
[2023-10-07 18:00] LABS: Basophils Percent Auto 0.2 % (0.2-2.0); Eosinophils Percent Auto 0.1 % (0.9-7.0); Hematocrit 40.7 % (42.0-54.0); Hemoglobin 12.9 g/dL (14.0-18.0); Immature Granulocytes Abs Auto 0.06 10^3/uL (0.00-0.03); Immature Granulocytes Pct Auto 0.3 % (0.0-0.5); Lymphocytes Absolute Auto 1.2 10^3/uL (1.2-3.8); Lymphocytes Percent Auto 6.1 % (20.5-60.0); Mean Corpuscular HGB Conc 31.7 g/dL (29.9-35.2); Mean Corpuscular Hemoglobin 28.6 pg (25.9-34.0); Mean Corpuscular Volume 90.2 fL (80.0-94.0); Mean Platelet Volume 10.2 fL (9.5-13.5); Monocytes Absolute Auto 0.7 10^3/uL (0.3-0.8); Monocytes Percent Auto 3.8 % (1.7-12.0); Neutrophils Absolute Auto 17.3 10^3/uL (1.4-6.5); Neutrophils Percent Auto 89.5 % (43.0-75.0); Platelet Count 377 10^3/uL (150-450); Red Blood Count 4.51 10^6/uL (4.70-6.10); Red Cell Distribution Width 14.9 % (11.0-15.0); White Blood Count 19.3 10^3/uL (4.0-11.0)
[2023-10-07 18:06] LABS: Urine Microscopic Indicated NO
[2023-10-07 18:11] LABS: Anion Gap 18.3; BUN Creatinine Ratio 12.9; Calcium 9.5 mg/dL (8.5-10.1); Carbon Dioxide 22.7 mmol/L (21.0-32.0); Chloride 103 mmol/L (98-107); Estimated GFR (African America >60 (>=60); Estimated GFR (Non-African Ame 50 (>=60); Glucose 193 mg/dL (74-106); Sodium 140 mmol/L (136-145)
--- NOTE | 2023-10-07 18:20 | XR_ITS ---
[facility] [place] [id number] Patient Name: YUSEF MELGAR MRN: [id number] date: 1950 Sex: M Assigned Patient Location: ER Current Patient Location: Accession/Order Number: [id number] Exam Date: 10/07/2023 18:35 Report Date: 10/07/2023 19:58 At the request of: TRE FERNANDEZ Procedure: XR chest 2V EXAM: XR chest 2V , 10/07/2023 HISTORY: fever, wbc 19k COMPARISON: Chest x-ray from 07/31/2023 TECHNIQUE: Frontal and lateral view x-rays of the chest. FINDINGS: Left lower lobe infiltrate. Cardiac silhouette within normal limits. Right lung is clear. No evidence of pleural effusion. No hilar or mediastinal enlargement. No acute osseous findings. XR/XR chest 2V IMPRESSION: Left lower lobe infiltrate. Electronically authenticated by: MIKA KILGORE Date: 10/07/2023 19:58
[2023-10-07 18:46] VITALS: BP 160/85; PULSE 80; O2SAT 96
== END 2023-10-07 19:34 | disposition home or self-care (01) ==
PROVIDERS: Emergency Provider Emergency Medicine; PCP Internal Medicine
DX: R50.9 Fever, unspecified (principal); M10.9 Gout, unspecified; Z79.899 Other long term (current) drug therapy; Z90.49 Acquired absence of other specified parts of digestive tract; Z87.891 Personal history of nicotine dependence
CPT/HCPCS: 36415; 71046; 80048; 81003; 85025; 99285

== ENCOUNTER 2023-10-12 11:17 | Outpatient (OUT) | payer MEDICARE, OTHER, SELFPAY ==
[2023-10-12 12:11] LABS: Basophils Percent Auto 0.3 % (0.2-2.0); Eosinophils Absolute Auto 0.1 10^3/uL (0.0-0.7); Eosinophils Percent Auto 1.3 % (0.9-7.0); Hematocrit 39.2 % (42.0-54.0); Hemoglobin 12.3 g/dL (14.0-18.0); Immature Granulocytes Abs Auto 0.03 10^3/uL (0.00-0.03); Immature Granulocytes Pct Auto 0.3 % (0.0-0.5); Lymphocytes Absolute Auto 1.4 10^3/uL (1.2-3.8); Lymphocytes Percent Auto 14.6 % (20.5-60.0); Mean Corpuscular HGB Conc 31.4 g/dL (29.9-35.2); Mean Corpuscular Hemoglobin 28.3 pg (25.9-34.0); Mean Corpuscular Volume 90.1 fL (80.0-94.0); Mean Platelet Volume 10.2 fL (9.5-13.5); Monocytes Absolute Auto 0.7 10^3/uL (0.3-0.8); Monocytes Percent Auto 7.5 % (1.7-12.0); Neutrophils Absolute Auto 7.1 10^3/uL (1.4-6.5); Platelet Count 368 10^3/uL (150-450); Red Blood Count 4.35 10^6/uL (4.70-6.10); Red Cell Distribution Width 14.7 % (11.0-15.0); White Blood Count 9.4 10^3/uL (4.0-11.0)
== END 2023-10-12 11:18 | disposition home or self-care (01) ==
LOC: LAB 11:19
PROVIDERS: PCP Internal Medicine; Visit Provider Internal Medicine
DX: I10 Essential (primary) hypertension (principal)
CPT/HCPCS: 36415; 85025

== ENCOUNTER 2024-02-03 09:14 | Outpatient (OUT) | payer MEDICARE, OTHER, SELFPAY ==
--- OUTSIDE RECORDS SUMMARY | 2024-02-03 09:30 | XMS_ITS | CCD ---
Author Organization [facility] Care Team Providers Care Manager Building Name Role Phone PHYSICIAN, DEFAULT Admitting Unavailable PHYSICIAN, DEFAULT Attending Unavailable Vanessa Steele Unavailable Unavailable Unavailable CEDRIC, DR MENDEZ Primary Care Unavailable DONNA, DR HURLEY Consulting Unavailable DONNA, DR HURLEY Procedure Practitioner Unava jozefable SHAIKH AYALA Admitting Unavailable SHAIKH AYALA Attending [...] HURLEY Attending Unavailable CONCEPCION GEORGE Consulting Unavailable ROSPAM, MIQUEL Consulting Unavailable Benson, Dr. Neftali Cormier Admitting Unavailable Benson, Dr. Neftali Cromier Attending Unavailable Vanessa Steele Primary Care Unavailabl e Petamina, Ms. Lawson Attending Unavailable Rostocil, Ms. Jorge Referring Unavailable Vanessa Steele Primary Care Unavailabl e Petek, Ms. Lawson Attending Unavailable Vanessa Steele Primary Care Unavailabl e Vanessa Steele Referring Unavailabl e Benson, Dr. Neftali Cormier Admitting Unavailable Benson, Dr. Neftali Cormier Attending Unavailable Benson, Dr. Neftali Cormier Admitting Unavailable Benson, Dr. Neftali Cormier Attending Unavailable Xavi Thompson Referring Unavailable Vanessa Steele Primary Care UnavailNeftali Crawford Attending Unavailable Dinary, Fazel Admitting Unavailable Dinary, Fazel Attending Unavailable Cedric, Dr. Vanessa Whitley Referring Unavai lable Stepan DO, Renea G Primary Care Provider [phone] Jamie HERNANDEZ, [facility] Primary Care Provider [phone] Unavailable Primary Care Provider UnavailMaribeth Celeste Attending Unavailable STEPAN, RENEA Referring Unavailable Neftali Knowles MD Unavailable Jamie HERNANDEZ, [facility] Primary Care Provider [phone] GRACE JUSTICE Referring [facility]available [facility] Primary Care Unavailable ARI, GRACE D Referring Unavailable FAWWID, [facility] Primary Care Unavailable ARI, GRACE D Referring Unavailable FAWWID, [facility] Primary Care Unavailable WWID, [facility] Primary Care Unavailable NEFTALI KNOWLES M Attending Unavailable MURUMBA, JAZLYN N Referring Unavailable STEPAN, RENEA G Primary Care Unavailable MURUMBA, JAZLYN N Referring Unavailable STEPAN, RENEA G Primary Care Unavailable CHOWDHRY, SAM Attending Unavailable MURUMBA, JAZLYN N Referring Unavailable STEPAN, RENEA G Primary Care Unavailable DINARY, FAZEL Attending Unavailable CHOWDHRY, SAM Referring Unavailable STEPAN, RENEA G Primary Care Unavailable DINARY, FAZEL Attending Unavailable DINARY, FAZEL Referring Unavailable [facility] Primary Care Unavailable NEFTALI KNOWLES Referring Unavailable [facility], [facility] Primary Care Unavailable MICHELLED, ALEXANDER Attending Unavailable NEFTALI STARR Attending Unavailab le FAWELIZA, Attending Unavailable STEPAN, RENEA G Attending Unavailable JAMIE, ALEXANDER Attending Unavailable FAWELIZA, ALEXANDER Attending Unavailable FAWWARoss, ALEXANDER Attending Unavailable ELTAHAWY, EHAB Referring Unavailable ELTAHAWY, EHAB Attending Unavailable ELTAHAWY, EHAB Admitting Unavailable ANTONIA, NOE Referring Unavailable LATANYA CLEVELAND Attending Unavailable NOE KNIGHT Attending Unavailable NOE KNIGHT Attending Unavailable Allergies Allergy Classification Reported Allergen(s) Allergy Type Date of Onset Reaction(s) Facility Angiotensin Converting Enzyme (GODWIN) Inhibitors (4 sources) Lisinopril; Translations: [Lisinopril TABS] Drug Allergy 2 Cough GP-Pauhgvq-[facility]n [facility] Work Phone: Macrolides (antibiotic) (1 source) Erythromycin Drug Allergy 3 Other (See Comments) [facility] Work Phone: Quinolones (antibiotic) (4 sources) Ciprofloxacin; Translations: [ciprofloxacin] Drug Allergy 3 Other (See Comments) [facility] (20 sources) Ciprofloxacin; Translations: [ciprofloxacin] Drug Allergy 3 Unknown, Other, Other (See Comments) [facility] (16 sources) Lisinopril; Translations: [Lisinopril TABS] Drug Allergy 2 Unknown, Cough MG-G[facility] 450 DO Work Phone: (4 sources) Amino Acids; Translations: [LISINOPRIL] Drug Allergy 1 [facility] (1 source) Ciprofloxacin Drug Allergy [facility] (1 source) Erythromycin Drug Allergy [facility] (8 sources) Erythromycin; Translations: [ERYTHROMYCIN] Drug Allergy 3 Unknown, GI bleeding, Other (See Comments) [facility] Work Phone: (3 sources) Azithromycin; Translations: [AZITHROMYCIN] Drug Allergy 8 [facility] (2 sources) Lisinopril Allergy to substance 3 Cough [facility] Medications Current Medications Medication Drug Class(es) Dates Sig (Normalized) Sig (Original) allopurinol 300 mg oral tablet (20 sources) Xanthine Oxidase Inhibitor Start: 09-17-2020 take 1 tablet by mouth once daily allopurinol (ZYLOPRIM) 300 MG tablet Take 1 tablet by mouth daily 0 09/17/2020 Active Allopurinol 300 MG Oral Tablet Quantity: 0 Refills: 0 Ordered: 08-Jan-2021 DO Active amLODIPine 10 mg oral tablet (20 sources) Dihydropyridine Calcium Channel Janet Start: 09-17-2020 End: 10-07-2023 take 1 tablet by mouth once daily amLODIPine (NORVASC) 10 MG tablet Take 1 tablet by mouth daily 0 09/17/2020 Active amLODIPine Besyl ate 10 MG Oral Tablet Quantity: 0 Refills: 0 Ordered: 08-Jan-2021 DO Active aspirin 81 mg chewable tablet (3 sources) Platelet Aggregation Inhibitor, Nonsteroidal Anti-inflammatory Drug Start: 07-27-2023 End: 07-26-2024 take 1 tablet by mouth once daily aspirin 81 MG chewable tablet Take 1 tablet by mouth daily 0 07/27/2023 07/26/2024 Active take 1 tablet by mouth once danielle y aspirin 81 mg EC tablet Take 1 tablet (81 mg) by mouth once daily. Active bisoprolol fumarate 10 mg oral tablet (20 sources) beta-Adrenergic Janet Start: 07-10-2023 End: 10-27-2023 take 1 tablet by mouth once daily bisoprolol (ZEBETA) 10 MG tablet Take 1 tablet by mouth daily 0 07/29/2023 Active take 1 tablet by mouth once danielle y bisoprolol (Zebeta) 5 mg tablet Take 1 tablet (5 mg) by mouth once daily. Active take 1 tablet by mouth twice bernard ly bisoprolol (Zebeta) 5 mg tablet Take 1 tablet (5 mg) by mouth 2 times a day. Active Bisoprolol Fumar ate 5 MG Oral Tablet Quantity: 0 Refills: 0 Ordered: 08-Jan-2021 DO Active dapagliflozin 10 mg oral tablet (2 sources) Sodium-Glucose Cotransporter 2 Inhibitor Start: 07-20-2023 End: 10-18-2023 take 1 tablet by mouth in the morning Farxiga 10 MG Indications: Stage 3a chronic kidney disease (HCC) (CMS/HCC) Take 1 tablet (10 mg) by mouth in the morning. 90 tablet 0 07/20/2023 07/30/2023 Discontinued (Cost of medication) empagliflozin 25 mg oral tablet (3 sources) Sodium-Glucose Cotransporter 2 Inhibitor Start: 07-30-2023 End: 10-28-2023 take 1 tablet by mouth once daily empagliflozin (JARDIANCE) 25 MG tablet Take 1 tablet by mouth daily 0 07/30/2023 Active fluticasone propionate 0.05 mg/actuat metered dose nasal spray (4 sources) Corticosteroid Start: 09-17-2020 fluticasone (FLONASE) 50 MCG/ACT nasal spray 2 sprays daily 0 09/17/2020 Active take 2 spray(s) nasa l route in the morning fluticasone (Flonase) 50 MCG/ACT nasal spray Administer 2 sprays into each nostril in the morning. 0 Active fluticasone propionate ([employer] Digihaler) 55 mcg/actuation aero powdr breath act w/sensor (5 sources) fluticasone prop ionate ([employer] Digihaler) 55 mcg/actuation aero powdr breath act w/sensor Inhale 55 % once daily. Active fluticasone prop ionate ([employer] Digihaler) 55 mcg/actuation aero powdr breath act w/sensor Inhale 55 % once daily. 0 Active furosemide 20 mg oral tablet (20 sources) Loop Diuretic Start: 10-07-2020 End: 12-10-2023 take 1 tablet by mouth once daily furosemide (LASIX) 20 MG tablet Take 1 tablet by mouth daily 0 10/07/2020 Active Furosemide 20 MG Oral Tablet Quantity: 0 Refills: 0 Ordered: 08-Jan-2021 DO Active glimepiride 4 mg oral tablet (20 sources) Sulfonylurea Start: 10-07-2020 take 1 tablet by mouth once daily before breakfast glimepiride (AMARYL) 4 MG tablet Take 1 tablet by mouth every morning (before breakfast) 0 10/07/2020 Active take 1 tablet by mouth twice bernard ly glimepiride (Amaryl) 4 mg tablet Take 1 tablet (4 mg) by mouth 2 times a day. Active Glimepiride 4 MG Oral Tablet Quantity: 0 Refills: 0 Ordered: 08-Jan-2021 DO Active hydrALAZINE hydrochloride 25 mg oral tablet (2 sources) Arteriolar Vasodilator Start: 08-20-2023 take 2 tablets by mouth at bedtime hydrALAZINE (APRESOLINE) 25 MG tablet Take 2 tablets by mouth in the morning and at bedtime 0 08/20/2023 Active losartan potassium 100 mg oral tablet (20 sources) Angiotensin 2 Receptor Janet Start: 09-17-2020 take 1 tablet by mouth once daily losartan (COZAAR) 100 MG tablet Take 1 tablet by mouth daily 0 09/17/2020 Active Losartan Charles um 100 MG Oral Tablet Quantity: 0 Refills: 0 Ordered: 08-Jan-2021 DO Active omeprazole 40 mg delayed release oral capsule (20 sources) Proton Pump Inhibitor Start: 01-23-2021 take 1 capsule by mouth twice daily omeprazole (PriLOSEC) [address] capsule Take 1 capsule (40 mg) by mouth 2 times a day. 01/23/2021 Active Start: 11-01-2020 take 1 capsule by mo uth once daily before breakfast omeprazole (PRILOSEC) 40 MG delayed release capsule Take 1 capsule by mouth every morning (before breakfast) 0 11/01/2020 Active Omeprazole 10 MG Oral Capsule Delayed Release Quantity: 0 Refills: 0 Ordered: 08-Jan-2021 DO Active pantoprazole 40 mg delayed release oral tablet (1 source) Proton Pump Inhibitor Start: 10-07-2023 End: 12-06-2023 take 1 tablet by mouth twice daily pantoprazole (ProtoNix) 40 mg EC tablet Indications: Primary malignant neuroendocrine neoplasm of duodenum (Multi) Take 1 tablet (40 mg) by mouth 2 times a day. Do not crush, chew, or split. 60 tablet 1 10/07/2023 12/06/2023 Active pioglitazone 30 mg oral tablet (20 sources) Peroxisome Proliferator Receptor alpha Agonist, Peroxisome Proliferator Receptor gamma Agonist, Thiazolidinedione End: 10-07-2023 take 1 tablet by mouth once daily pioglitazone (ACTOS) 30 MG tablet Take 1 tablet by mouth daily 0 Active Pioglitazone HCl - 30 MG Oral Tablet Quantity: 0 Refills: 0 Ordered: 08-Jan-2021 DO Active rosuvastatin calcium 10 mg oral tablet (20 sources) HMG-CoA Reductase Inhibitor Start: 12-10-2022 End: 12-10-2023 take 1 tablet by mouth in the morning rosuvastatin (Crestor) 10 MG tablet Indications: Mixed hyperlipidemia (CMS/HCC) Take 1 tablet (10 mg) by mouth in the morning. 90 tablet 3 12/10/2022 12/10/2023 Active Start: 09-17-2020 End: 07-26-2024 take 2 tablets by mouth once daily rosuvastatin (CRESTOR) 10 MG tablet Take 2 tablets by mouth daily 0 09/17/2020 07/26/2024 Active take 1 tablet by victor manuel th once daily rosuvastatin (Crestor) 20 mg tablet Take 1 tablet (20 mg) by mouth once daily. Active Rosuvastatin Lawson cium 10 MG Oral Tablet Quantity: 0 Refills: 0 Ordered: 08-Jan-2021 DO Active sucralfate 1000 mg oral tablet (12 sources) Aluminum Complex Start: 10-07-2023 take 1 tablet by mouth four times daily 1 hour(s) before bedtime sucralfate (Carafate) 1 gram tablet Indications: Primary malignant neuroendocrine neoplasm of duodenum (Multi) Take 1 tablet (1 g) by mouth 4 times a day. Take 1 hour before meals and at bedtime 120 tablet 2 10/07/2023 Active Start: 01-23-2021 take 1 tablet by victor manuel th four times daily at bedtime Sucralfate 1 GM Oral Tablet TAKE 1 TABLET 4 TIMES DAILY, BEFORE MEALS AND AT BEDTIME. Quantity: 360 Refills: 2 Ordered: 01-May-2021 Irwin Batista MD Start : 23-Jan-2021 Active tamsulosin hydrochloride 0.4 mg oral capsule (3 sources) alpha-Adrenergic Janet Start: 07-31-2023 take 1 capsule by mouth once daily in the evening tamsulosin (FLOMAX) 0.4 MG capsule Take 1 capsule by mouth every evening 30 capsule 3 07/31/2023 Active tamsulosin HCl ( TAMSULOSIN ORAL) Take by mouth. Active Completed/Discontinued Medications Medication Drug Class(es) Dates Sig (Normalized) Sig (Original) amoxicillin 875 mg / clavulanate 125 mg oral tablet (11 sources) Penicillin-class Antibacterial Start: 01-23-2021 take 1 tablet by mouth every twelve hours Amoxicillin-Pot Clavulanate 875-125 MG Oral Tablet TAKE 1 TABLET EVERY 12 HOURS UNTIL GONE. Quantity: 10 Refills: 0 Ordered: 23-Jan-2021 Irwin Batista MD Start : 23-Jan-2021 Active 10 ml EPINEPHrine 0.1 mg/ml prefilled syringe (1 source) alpha-Adrenergic Agonist, beta-Adrenergic Agonist, Catecholamine Start: 10-07-2023 End: 10-07-2023 As needed, Starting on Thu10/07/23 at 0758, Intraprocedure Fluticasone Propionate CREA (13 sources) Fluticasone Propionate CREA Quantity: 0 Refills: 0 Ordered: 08-Jan-2021 DO Active gadobenate dimeglumine (MULTIHANCE) injection 16.1 mL (1 source) Start: 12-01-2023 End: 12-01-2023 gadobenate dimeglumine (MULTIHANCE) injection 16.1 mL iohexol (OMNIPaque) 350 mg iodine/mL solution 75 mL (2 sources) Start: 05-26-2023 End: 05-26-2023 iohexol (OMNIPaque) 350 mg iodine/mL solution 75 mL simethicone 66.7 mg/ml oral suspension (2 sources) Start: 06-10-2023 End: 06-10-2023 simethicone (Mylicon) drops Problems Active Problems Problem Classification Problem Date Documented Date Episodic/Chronic Biliary tract disease (3 sources) Acute cholecystitis; Translations: [ACUTE CHOLECYSTITIS] Onset: 06-04-2021 Episodic Cancer of other GI organs; 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; 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] Onset: 04-29-2022 Chronic Cardiac dysrhythmias (6 sources) Nonsustained ventricular tachycardia ; Translations: [NSVT (nonsustained ventricular tachycardia)] Onset: 07-10-2023 07-15-2023 Chronic Chronic kidney disease (3 sources) Chronic kidney disease stage 3A ; Translations: [Stage 3a chronic kidney disease (HCC)] Onset: 07-15-2023 07-15-2023 Chronic Coronary atherosclerosis and other heart disease (2 sources) Atherosclerotic heart disease of [place] coronary artery without angina pectoris; Translations: [Atherosclerotic heart disease of [place] coronary artery without angina pectoris] Onset: 07-27-2023 [...] disease] Onset: 12-12-2020 02-24-2023 Chronic Essential hypertension (9 sources) Essential (primary) hypertension; Translations: [Essential hypertension] [...] 11-28-2020 Chronic Other aftercare (1 source) Other ferry terminal agent (current) drug therapy; Translations: [OTH [facility] CURRENT DRUG THERAPY] Onset: 06-12-2021 Episodic Other and unspecified benign neoplasm (1 source) Benign carcinoid tumor of the duodenum; Translations: [Benign carcinoid tumor of the duodenum] Onset: 05-12-2022 Episodic Other and unspecified benign neoplasm (2 sources) Adenoma of left adrenal gland; Translations: [Benign neoplasm of left adrenal gland] 11-30-2023 Episodic Other and unspecified benign neoplasm (1 source) Benign neoplasm of left adrenal gland; Translations: [Benign neoplasm of left adrenal gland] Onset: 12-01-2023 Episodic Other circulatory disease (2 sources) Orthostatic hypotension; Translations: [Orthostatic hypotension] Onset: 10-27-2023 Episodic Other diseases of kidney and ureters (4 sources) Cyst of kidney; Translations: [Cyst of kidney, acquired] Onset: 06-29-2023 07-15-2023 Episodic Other diseases of kidney and ureters (1 source) Cyst of kidney, acquired; Translations: [Cyst of kidney, acquired] Onset: 12-01-2023 Episodic Other disorders of stomach and duodenum [...] [Obesity, unspecified] Onset: 02-24-2023 02-24-2023 Chronic Other upper respiratory disease (2 sources) Allergic [...] tumor of sm int] Onset: 04-29-2022 Episodic Cardiac dysrhythmias (2 sources) Bradycardia, unspecified; Translations: [Bradycardia, unspecified] Onset: 08-18-2023 Episodic Conditions associated with dizziness or vertigo (2 sources) Dizziness and giddiness; Translations: [Dizziness and giddiness] Onset: 10-16-2023 Episodic Deficiency and other anemia (1 source) [...] Onset: 12-12-2020 Episodic Other aftercare (2 sources) 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; Translations: [IS ARCHITECT USE ORAL HYPOGLYCEMIC DX] Onset: 12-12-2020 Episodic [...] joint, lower leg] Onset: 02-24-2023 02-24-2023 Episodic Other screening for suspected conditions (not mental disorders or infectious disease) (20 sources) Patient encounter status; Translations: [Screening for malignant neoplasms of prostate] Onset: 06-12-2021 07-15-2023 Episodic Screening and history of mental health and substance abuse codes (2 sources) Personal history of nicotine dependence; Translations: [PERSONAL HISTORY OF NICOTINE DEPEND] Onset: 06-12-2021 Episodic Syncope (4 sources) Near syncope; Translations: [Syncope and collapse] Onset: 07-10-2023 07-15-2023 Episodic Unclassified (1 source) Onset: 06-18-2023 06-18-2023 Unclassified (1 source) Other ventricular tachycardia; Translations: [Other ventricular tachycardia] Onset: 07-27-2023 Results Test Name Value Interpretation Reference Range Facility CT CHEST W IV CONTRASTon CT CHEST W IV CONTRAST Interpreted By: Lul Escalante and Maltbie Grace STUDY: CT CHEST W IV CONTRAST; 12/31/2023 7:55 am INDICATION: Signs/Symptoms:LUNG NODULE. COMPARISON: CT chest abdomen pelvis 05/26/2023 ACCESSION NUMBER(S): [id number] ORDERING CLINICIAN: NEFTALI KNOWLES TECHNIQUE: Helical data acquisition of the chest was obtained following intravenous administration of 50 mL Omnipaque 350. Images were reformatted in axial, coronal, and sagittal planes. FINDINGS: LUNGS AND AIRWAYS: The trachea and central airways are patent. No endobronchial lesion is seen. The bilateral lungs are clear without evidence of focal consolidation, pleural effusion, or pneumothorax. Interval resolution of the previously noted pulmonary nodule in the left lower lobe. No new pulmonary nodule is seen. MEDIASTINUM AND KEYONA, LOWER NECK AND AXILLA: A 2 mm hypoattenuating cyst is seen in the right thyroid lobe (series 4, image 8), which is not definitively visualized on prior. No evidence of thoracic lymphadenopathy by CT criteria. Esophagus appears within normal limits as seen. HEART AND VESSELS: The thoracic aorta normal in course and caliber.There is moderate atherosclerosis present. Main pulmonary artery and its branches are normal in caliber. Mild coronary artery calcifications are seen. Please note,the study is not optimized for evaluation of coronary arteries. The cardiac chambers are not enlarged. There is no pericardial effusion seen. UPPER ABDOMEN: Status post cholecystectomy. Multiple splenules are again seen. A stable exophytic cyst is seen in the left kidney. The liver is diffusely decreased in attenuation compatible with hepatic steatosis. CHEST WALL AND OSSEOUS STRUCTURES: Chest wall is within normal limits. No acute osseous pathology.There are no suspicious osseous lesions. IMPRESSION: 1. Interval resolution of the previously noted pulmonary nodule in the left lower lobe, which was likely infectious/inflammatory. 2. Stable appearance of chronic and incidental findings as described above in the body of the report. I personally reviewed the images/study and I agree with the findings as stated by Nuclear Medicine fellow Magaly Morales MD. This study was interpreted at [facility], [place], [place]. Signed by: Lul Carver 01/01/2024 9:17 PM Dictation workstation: [id number] [facility] 12-29-[facility]23 Esophagogastroduodenosco py Table formatting from the original result was not included. Impression The cricopharynx, upper third of the esophagus, middle third of the esophagus, lower third of the esophagus and GE junction appeared normal. Moderate edematous, erythematous mucosa with exudate, consistent with gastritis in the body of the stomach and antrum; electronic chromoendoscopy (NBI) was used; performed cold forceps biopsy to rule out H. pylori The duodenal bulb and 2nd part of the duodenum appeared normal. Electronic chromoendoscopy was used. Performed random biopsy. Findings The cricopharynx, upper third of the esophagus, middle third of the esophagus, lower third of the esophagus and GE junction appeared normal. Moderate edematous and erythematous mucosa with exudate in the body of the stomach and antrum, consistent with gastritis; electronic chromoendoscopy (NBI) was used; performed cold forceps biopsy to rule out H. pylori The duodenal bulb and 2nd part of the duodenum appeared normal. Electronic chromoendoscopy was used. Performed random biopsy using biopsy forceps. Random biopsy was taken from duodenal buld Recommendation Await pathology results Repeat EGD in 6 months, due: 06/26/2024 Indication Primary malignant neuroendocrine neoplasm of duodenum (Multi) Staff Staff Role Jeremiah Magaña MD Proceduralist Medications See Anesthesia Record. Preprocedure A history [...] duodenum. Retroflexion was performed in the cardia. Prior to the procedure, the patient's H. Pylori status was unknown. The patient experienced no blood loss. The procedure was not difficult. The patient tolerated the procedure well. There were no apparent adverse events. Events Procedure Events Event Event Time ENDO SCOPE IN TIME 12/29/2023 1:29 PM Specimens ID Type Source Tests Collected by Time 1 : Tissue DUODENAL BULB BIOPSY SURGICAL PATHOLOGY EXAM Grace Garciavach 12/29/2023 1332 2 : r/o H Pylori Tissue STOMACH ANTRUM BIOPSY SURGICAL PATHOLOGY EXAM Grace Garciavach 12/29/2023 1334 Procedure Location [facility] [id number] [place] [id number] Referring Provider Jeremiah Magaña MD Procedure Provider Jeremiah Magaña MD [facility] Glucose Test strip manual (B ld) [Mass/Vol]on 12-29-2023 Glucose [Mass/Vol] 147 mg/dL High 74-99 [facility] Comment on above: Performed By: #### 2 [id number] #### OLIMPIA WARE ([id number]) [facility] ([facility]) [address] [place], [place] [id number] Surgical pathology studyon 0 12-29-2023 Surgical pathology study Pathology repor t.total SEE COMMENT Surgical Pathology Case: [id number] Authorizing Provider: Jeremiah Magaña MD Collected: 12/29/2023 1332 Ordering Location: [facility] Received: 12/29/2023 1429 Pathologist: Spike Massey MD Specimens: A) - DUODENAL BULB BIOPSY B) - STOMACH ANTRUM BIOPSY, r/o H Pylori Path report.final diagnosis SEE COMMENT A. DUODENAL BULB BIOPSY: SMALL INTESTINAL MUCOSA WITH MILD ACTIVE DUODENITIS, SEE NOTE. Note: This finding is nonspecific in nature and may be related to medication effect-especially nonsteroidal anti-inflammatory drugs and high acid output in particular. B. STOMACH ANTRUM BIOPSY: REACTIVE GASTROPATHY WITH ACTIVE INFLAMMATION, SEE NOTE. Note: No microorganisms are identified. Laboratory comment By the signature on this report, the individual or group listed as making the Final Interpretation/Diagnosis certifies that they have reviewed this case. Path report.relevant Hx B) Rule out H.Pylori Path report.gross observation SEE COMMENT A: Received in formalin, labeled with the patient's name and hospital number and 1 , is a fragment of deal, soft tissue measuring 0.4 x 0.2 x 0.2 cm. The specimen is submitted in toto in one cassette. RCC B: Received in formalin, labeled with the patient's name and hospital number and 2 , are multiple fragments of deal, soft tissue aggregating to 0.6 x 0.4 x 0.1 cm. The specimen is submitted in toto in one cassette. RCC Normal [facility] CBC W Auto Differential pane l (Bld)on 12-28-2023 Basophils (Bld) [#/Vol] 0.04 x10*3/uL Normal 0.00-0.10 [facility] Comment on above: Performed By: #### 5 [id number] #### OLIMPIA WARE ([id number]) [facility] ([facility]) [address] [place] [address] Basophils/100 WBC (Bld) 0.4 % Normal 0.0-2.[address] [facility] Comment on above: Performed By: #### 5 [id number] #### OLIMPIA WARE ([id number]) [facility] ([facility]) [address] [place] [address] Eosinophils (Bld) [#/Vol] 0.18 x10*3/uL Normal 0.00-0.40 [facility] Comment on above: Performed By: #### 5 7021-8 #### OLIMPIA WARE ([id number]) [facility] ([facility]) [address] [place] [address] Eosinophils/100 WBC (Bld) 1.9 % Normal 0.0-6.0 [facility] Comment on above: Performed By: #### 5 7021-8 #### OLIMPIA WARE ([id number]) [facility] ([facility]) [address] [place] [address] Erythrocyte distribution width (RBC) [Ratio] 16.3 % High 11.5-14.5 [facility] Comment on above: Performed By: #### 5 7021-8 #### OLIMPIA WARE ([id number]) [facility] ([facility]) [address] [place] [address] Hematocrit (Bld) [Volume fraction] 43.0 % Normal 41.0-52.0 [facility] Comment on above: Performed By: #### 5 7021-8 #### OLIMPIA WARE ([id number]) [facility] ([facility]) [address] [place] [address] Hemoglobin (Bld) [Mass/Vol] 13.4 g/dL Low 13.5-17.5 [facility] Comment on above: Performed By: #### 5 7021-8 #### OLIMPIA WARE ([id number]) [facility] ([facility]) [address] [place] [address] Immature granulocytes (Bld) [#/Vol] 0.03 x10*3/uL Normal 0.00-0.50 [facility] Comment on above: Performed By: #### 5 7021-8 #### OLIMPIA WARE ([id number]) [facility] ([facility]) [address] [place] [address] Immature granulocytes/100 WBC (Bld) 0.3 % Normal 0.0-0.9 [facility] Comment on above: Result Comment: Halima ture Granulocyte Count (IG) includes promyelocytes, myelocytes and metamyelocytes but does not include bands. Percent differential counts (%) should be interpreted in the context of the absolute cell counts (cells/UL). Performed By: #### 5 7021-8 #### OLIMPIA WARE ([id number]) [facility] ([facility]) [address] [place] [address] Lymphocytes (Bld) [#/Vol] 1.72 x10*3/uL Normal 0.80-3.00 [facility] Comment on above: Performed By: #### 5 7021-8 #### OLIMPIA WARE ([id number]) [facility] ([facility]) [address] [place] [address] Lymphocytes/100 WBC (Bld) 18.0 % Normal 13.0-44.0 [facility] Comment on above: Performed By: #### 5 7021-8 #### OLIMPIA WARE ([id number]) [facility] ([facility]) [id number] [place] [address] MCH (RBC) [Entitic mass] 27.8 pg Normal 26.0-34.0 [facility] Comment on above: Performed By: #### 5 7021-8 #### OLIMPIA WARE ([id number]) [facility] ([facility]) [address] [place] [address] MCHC (RBC) [Mass/Vol] 31.2 g/dL Low 32.0-36.0 [facility] Comment on above: Performed By: #### 5 7021-8 #### OLIMPIA WARE ([id number]) [facility] ([facility]) [address] [place] [address] MCV (RBC) [Entitic vol] 89 fL Normal 80-[address] [facility] Comment on above: Performed By: #### 5 7021-8 #### OLIMPIA WARE ([id number]) [facility] ([facility]) [address] [place] [address] Monocytes (Bld) [#/Vol] 0.75 x10*3/uL Normal 0.05-0.80 [facility] Comment on above: Performed By: #### 5 7021-8 #### OLIMPIA WARE ([id number]) [facility] ([facility]) [address] [place] [address] Monocytes/100 WBC (Bld) 7.9 % Normal 2.0-10.[address] [facility] Comment on above: Performed By: #### 5 7021-8 #### OLIMPIA WARE ([id number]) [facility] ([facility]) [address] [place] [address] Neutrophils (Bld) [#/Vol] 6.83 x10*3/uL High 1.60-5.50 [facility] Comment on above: Result Comment: Perc ent differential counts (%) should be interpreted in the context of the absolute cell counts (cells/uL). Performed By: #### 5 7021-8 #### OLIMPIA WARE ([id number]) [facility] ([facility]) [address] [place] [address] Neutrophils/100 WBC (Bld) 71.5 % Normal 40.0-80.0 [facility] Comment on above: Performed By: #### 5 7021-8 #### OLIMPIA WARE ([id number]) [facility] ([facility]) [address] [place] [address] Nucleated RBC/100 WBC (Bld) [Ratio] 0.0 /100 WBCs Normal 0.0-0.0 [facility] Comment on above: Performed By: #### 5 7021-8 #### OLIMPIA WARE ([id number]) [facility] ([facility]) [address] [place] [address] Platelets (Bld) [#/Vol] 365 x10*3/uL Normal 150-450 [facility] Comment on above: Performed By: #### 5 7021-8 #### OLIMPIA WARE ([id number]) [facility] ([facility]) [address] [place] [address] RBC (Bld) [#/Vol] 4.82 x10*6/uL Normal 4.50-5.90 [facility] Comment on above: Performed By: #### 5 7021-8 #### OLIMPIA WARE ([id number]) [facility] ([facility]) [address] [place] [address] WBC (Bld) [#/Vol] 9.6 x10*3/uL Normal 4.4-11.3 [facility] Comment on above: Performed By: #### 5 7021-8 #### OLIMPIA WARE ([id number]) [facility] ([facility]) [address] [place] [address] Comprehensive metabolic 2000 panelon 12-28-2023 Albumin BCP dye [Mass/Vol] 4.1 g/dL Normal 3.4-5.0 [facility] Comment on above: Performed By: #### 2 4323-8 #### OLIMPIA WARE ([id number]) [facility] ([facility]) [address] [place] [address] ALP [Catalytic activity/Vol] 94 U/L Normal 33-136 [facility] Comment on above: Performed By: #### 2 4323-8 #### OLIMPIA WARE ([id number]) [facility] ([facility]) [address] [place] [address] ALT With P-5'-P [Catalytic activity/Vol] 15 U/L Normal 10-52 [facility] Comment on above: Result Comment: Kanwal ents treated with Sulfasalazine may generate falsely decreased results for ALT. Performed By: #### 2 4323-8 #### OLIMPIA WARE ([id number]) [facility] ([facility]) [address] [place] [address] Anion gap [Moles/Vol] 12 mmol/L Normal 10-20 [facility] Comment on above: Performed By: #### 2 4323-8 #### OLIMPIA WARE ([id number]) [facility] ([facility]) [address] [place] [address] AST With P-5'-P [Catalytic activity/Vol] 13 U/L Normal 9-39 [facility] Comment on above: Performed By: #### 2 4323-8 #### OLIMPIA WARE ([id number]) [facility] ([facility]) [address] [place] [address] Bilirubin [Mass/Vol] 0.4 mg/dL Normal 0.0-1.2 [facility] Comment on above: Performed By: #### 2 4323-8 #### OLIMPIA WARE ([id number]) [facility] ([facility]) [address] [place] [address] Calcium [Mass/Vol] 9.6 mg/dL Normal 8.6-10.[address] [facility] Comment on above: Performed By: #### 2 4323-8 #### OLIMPIA WARE ([id number]) [facility] ([facility]) [address] [place] [address] Chloride [Moles/Vol] 104 mmol/L Normal 98-107 [facility] Comment on above: Performed By: #### 2 4323-8 #### OLIMPIA WARE ([id number]) [facility] ([facility]) [address] [place] [address] CO2 [Moles/Vol] 27 mmol/L Normal 21-32 [facility] Comment on above: Performed By: #### 2 4323-8 #### OLIMPIA WARE ([id number]) [facility] ([facility]) [address] [place] [address] Creatinine [Mass/Vol] 1.18 mg/dL Normal 0.50-1.30 [facility] Comment on above: Performed By: #### 2 4323-8 #### OLIMPIA WARE ([id number]) [facility] ([facility]) [address] [place] [address] Glomerular filtration rate/1.73 sq M.predicted 65 mL/min/1.73m*2 Normal >60 [facility] Comment on above: Result Comment: Calc ulations of estimated GFR are performed using the 2020 CKD-EPI Study Refit equation without the race variable for the IDMS-Traceable creatinine methods. https://jasn.asnjournals.org/content//ASN.345 2275316 Performed By: #### 2 4323-8 #### OLIMPIA WARE ([id number]) [facility] ([facility]) [address] [place] [address] Glucose [Mass/Vol] 171 mg/dL High 74-[address] [facility] Comment on above: Performed By: #### 2 4323-8 #### OLIMPIA WARE ([id number]) [facility] ([facility]) [address] [place] [address] Potassium [Moles/Vol] 5.0 mmol/L Normal 3.5-5.3 [facility] Comment on above: Performed By: #### 2 4323-8 #### OLIMPIA WARE ([id number]) [facility] ([facility]) [address] [place] [address] Protein [Mass/Vol] 6.7 g/dL Normal 6.4-8.[address] [facility] Comment on above: Performed By: #### 2 4323-8 #### OLIMPIA WARE ([id number]) [facility] ([facility]) [address] [place] [address] Sodium [Moles/Vol] 138 mmol/L Normal 136-[address] [facility] Comment on above: Performed By: #### 2 4323-8 #### OLIMPIA WARE ([id number]) [facility] ([facility]) [address] [place] [address] Urea nitrogen [Mass/Vol] 23 mg/dL Normal 6-23 [facility] Comment on above: Performed By: #### 2 4323-8 #### OLIMPIA WARE ([id number]) [facility] ([facility]) [address] [place] [address] MRI ABDOMEN W WO CONTRASTon 12-01-2023 MRI ABDOMEN W WO CONTRAST RADRPT EXAM: MRI ABDOMEN W WO CONTRAST, 12/01/2023. COMPARISON STUDY: CT of the abdomen and pelvis with contrast 06/03/2021. CT of the abdomen and pelvis 09/18/2010. TECHNIQUE: Coronal T2, axial T1 in and [id number]-af-azpxc, axial T2 before and after fat saturation and axial T1-weighted fat-saturated images were obtained before and after subtraction and before and after the utilization of intravenous gadolinium contrast. HISTORY: TECH NOTES: Bilateral renal cyst, left adrenal adenoma, bilateral renal cysts, adrenal adenoma, left. 16.1 mL Multihance. Bilateral renal cysts. FINDINGS: Right hepatic lobe measures 17 cm superior to inferior. The spleen has a length of 10.9 cm. The gallbladder is surgically absent. Bosniak type I exophytic cystic lesion of the upper pole of the left kidney measures 6.2 cm superior to inferior. On axial imaging this measures 4.8 x 4.6 cm. A partially exophytic Bosniak type II upper pole left renal cyst containing very fine thin internal septations is obliquely oriented. The exophytic component is directed medially. On sagittal imaging this has a length of at least 6.4 cm. A component of the lesion on axial imaging measures 3.3 x 6.0 cm. An intracortical cyst at the inferior pole left kidney measures 7 mm. Liver, spleen, pancreas and right kidney demonstrate no acute abnormality. Mild background global atrophic changes of the kidneys with chronic adjacent perinephric stenting. Ovoid shaped high T2 signal lesion involving the posterolateral aspect of the peritoneal surface on the right at the level of the upper pole of the right kidney measures 10 x 23 mm. This is intermediate in signal intensity on the precontrast T1-weighted images and does not enhance. Fatty nodule associated with the lateral limb of the right adrenal is increased in signal intensity on T1 in-phase images and drops in signal on the T1 sye-es-[id number] images. This demonstrates hypoenhancement on the postcontrast images measuring 8 x 10 mm, image 50 of series 7. The medial limb of the right adrenal is hyperplastic with transverse thickness of 9 mm. This drops in signal intensity on the T1 sql-sx-czebs as compared to T1 in-phase images. Nodular thickened appearance of the left adrenal body has similar characteristics dropping in signal intensity on the T1 aom-cq-nvdbv as compared to T1 in-phase images. This measures 1.6 x 2.3 cm and is not significantly changed in appearance compared study from 2011. Colonic diverticular disease without diverticulitis noted. On precontrast T1 fat-saturated images a hemorrhagic/proteinaceous cyst at the upper pole of the left kidney involving the posterior cortex on image 65 of series 8 measures 5 mm. Aorta is nonaneurysmal. No significantly enlarged adenopathy. No acute osseous abnormality. Mild intrahepatic/extrahepatic biliary ductal prominence is noted and not uncommonly seen in a patient status post cholecystectomy. The common hepatic duct has AP diameter of 6.5 mm. Proximal common bile duct at the level of the pancreatic head has a diameter of 9 mm. This tapers as it approaches the ampulla. Negative for choledocholithiasis. There is mild ectasia of the main pancreatic duct. Pancreatic divisum ductal morphology is noted. Negative for acute pancreatitis or discrete pancreatic mass. Mild background global atrophic changes are again noted. Report electronically signed by: Dr. Rajinder Joy IMPRESSION: 1. Mild stable right adrenal hyperplasia. 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 2. Left adrenal nodule/adenoma is also unchanged compared to study from 09/18/2010. 3. Prior cholecystectomy. Mild associated intrahepatic/extrahepatic biliary ductal prominence is stable without choledocholithiasis. 4. Mild background global atrophic changes of the pancreas. Pancreatic divisum ductal morphology noted. Negative for acute hepatitis or discrete pancreatic mass. 5. Benign-appearing Bosniak type I and Bosniak type II left renal cysts as described. 6. Small peritoneal cyst seen posterolaterally within the right mid abdomen lateral to the upper pole of the right kidney unchanged. This was also seen on study from 2010 in retrospect. Overall no acute intra-abdominal process otherwise noted. Bilateral renal cyst, left adrenal adenoma, Bilateral renal cysts, Adrenal adenoma, left. 16.1 ml Multihance Interpreted by: Rajinder Joy MD Signed by: Rajinder Joy MD 12/07/23 Final result Normal [facility] BUN & Creatinineon 4 Creatinine [Mass/Vol] 1.28 mg/dL High 0.66 - 1.25 mg/dL [facility] Sekou Rodriguez Filt Rate 58 Low - PINF [facility] Comment on above: GFR calculated using CKD-EPI (2020) formula. Stage 1 Kidney damage (e.g., protein in the urine) with normal GFR >=90 Stage 2 Kidney damage with mild decrease in GFR 60-89 Stage 3a Moderate decrease in GFR 45-59 Stage 3b Moderate decrease in GFR 30-44 Stage 4 Severe reduction in GFR 15-29 Stage 5 Kidney failure <15 Interpretation and review of laboratory results Abnormal [facility] Urea nitrogen (BldV) [Mass/Vol] 25 mg/dL High 9 - 20 mg/dL [facility] BUN AND CREATININEon 11-29-2 024 Creatinine [Mass/Vol] 1.28 mg/dL High 0.66-1.25 [facility] Comment on above: Performed By: #### B UNCRE #### [address] [address] Ph. [phone] GFR/1.73 sq M.predicted among non-blacks MDRD (S/P/Bld) [Vol rate/Area] 58 mL/min/{1.73_m2} Low >60 [facility] Comment on above: Result Comment: GFR calculated using CKD-EPI (2020) formula.\X0D0A\Stage 1 Kidney damage (e.g., protein in the urine) with normal GFR >=90\X0D0A\Stage 2 Kidney damage with mild decrease in GFR 60-89\X0D0A\Stage 3a Moderate decrease in GFR 45-59\X0D0A\Stage 3b Moderate decrease in GFR 30-44\X0D0A\Stage 4 Severe reduction in GFR 15-29\X0D0A\Stage 5 Kidney failure <15 Performed By: #### B UNCRE #### [address] [address] Ph. [phone] Urea nitrogen [Mass/Vol] 25 mg/dL High 9-20 [facility] Comment on above: Performed By: #### B UNCRE #### [address] [address] Ph. [phone] Office Visiton 10-27-2023 Follow-up visit [id number] Nika Car 1950 M Date Provider Department Center 10/27/2023 NOE FERREIRA [facility] Family History Problem Relation Age of Onset Angina Mother Cancer Mother Heart attack Mother Heart failure Mother Hypertension Mother Cancer Father Diabetes type II Father Hypertension Father Cancer Sister Diabetes type II Sister Cancer Brother Diabetes type II Brother Hypertension Brother Cancer Brother Diabetes type II Brother Family Status - Relation Status Age at Mother Father Sister Brother Brother Level of Service:14324 HI OFFICE/OUTPATIENT ESTABLISHED LOW MDM 20 MIN Normal [facility] ENDOSCOPIC ULTRASOUND (UPPER )on 10-07-2023 ENDOSCOPIC ULTRASOUND (UPPER) Table formatting from the original result was not included. Impression One 10 mm polyp in the duodenal bulb; removed by EMR but did not retrieve specimen, post-procedure bleeding was visualized; placed 3 clips successfully; hemostasis achieved The cricopharynx, upper third of the esophagus, middle third of the esophagus, lower third of the esophagus and GE junction appeared normal. Abnormal mucosa, consistent with gastritis in the cardia, fundus of the stomach, body of the stomach and antrum 10 mm x 6 mm homogeneous and hypoechoic nodule, originating in the mucosa was visualized in the duodenal bulb; removed by EMR, post-procedure bleeding was visualized; placed 3 clips successfully; hemostasis achieved The 2nd part of the duodenum appeared normal. Findings One 10 mm polyp in the duodenal bulb; completely removed target lesion en bloc by EMR but did not retrieve specimen. EMR was performed via cap-assisted technique with a hot snare. Post-procedure bleeding was visualized; placed 3 clips successfully (clips are MRI conditional); hemostasis achieved The cricopharynx, upper third of the esophagus, middle third of the esophagus, lower third of the esophagus and GE junction appeared normal. Patchy edematous and erythematous mucosa in the cardia, fundus of the stomach, body of the stomach and antrum, consistent with gastritis 10 mm x 6 mm homogeneous and hypoechoic nodule with normal surface appearance, originating in the mucosa was visualized in the duodenal bulb; completely removed target lesion en bloc by EMR and retrieved specimen. EMR was performed via cap-assisted technique with a hot snare. Post-procedure bleeding was visualized; placed 3 clips successfully (clips are MRI conditional); hemostasis achieved The 2nd part of the duodenum appeared normal. Recommendation Await pathology results Schedule repeat upper EGD IN 2 MONTHS Pantoprazole 40 mg po bid 8 weeks Sucralfate 1 g TID 8 weeks Indication Primary malignant neuroendocrine neoplasm of duodenum (Multi) Staff Staff Role Jeremiah Magaña MD Proceduralist Medications See Anesthesia Record. 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 The patient's blood pressure, heart rate, level of consciousness, oxygen, respirations, ECG and ETCO2 were monitored throughout the procedure. The radial scope was introduced through the mouth and advanced to the second part of the duodenum. The patient's estimated blood loss was minimal (<5 mL). The procedure was not difficult. The patient tolerated the procedure well. There were no apparent adverse events. Events Procedure Events Event Event Time ENDO SCOPE IN TIME 10/07/2023 7:53 AM Specimens ID Type Source Tests Collected by Time 1 : Duodenal Bulb Polyp Tissue DUODENUM ENDOSCOPIC MUCOSAL RESECTION SURGICAL PATHOLOGY EXAM Mayelin Page 10/07/2023 0811 Procedure Location [facility] [address] [facility] [id number] [place] [address] [facility] [facility] [address] [place] [address] Procedure Provider Jeremiah Magaña MD [facility] Endoscopic Ultrasound (Upper )on 10-07-2023 Table formatting fro m the original result was not included. Impression One 10 mm polyp in the duodenal bulb; removed by EMR but did not retrieve specimen, post-procedure bleeding was visualized; placed 3 clips successfully; hemostasis achieved The cricopharynx, upper third of the esophagus, middle third of the esophagus, lower third of the esophagus and GE junction appeared normal. Abnormal mucosa, consistent with gastritis in the cardia, fundus of the stomach, body of the stomach and antrum 10 mm x 6 mm homogeneous and hypoechoic nodule, originating in the mucosa was visualized in the duodenal bulb; removed by EMR, post-procedure bleeding was visualized; placed 3 clips successfully; hemostasis achieved The 2nd part of the duodenum appeared normal. Findings One 10 mm polyp in the duodenal bulb; completely removed target lesion en bloc by EMR but did not retrieve specimen. EMR was performed via cap-assisted technique with a hot snare. Post-procedure bleeding was visualized; placed 3 clips successfully (clips are MRI conditional); hemostasis achieved The cricopharynx, upper third of the esophagus, middle third of the esophagus, lower third of the esophagus and GE junction appeared normal. Patchy edematous and erythematous mucosa in the cardia, fundus of the stomach, body of the stomach and antrum, consistent with gastritis 10 mm x 6 mm homogeneous and hypoechoic nodule with normal surface appearance, originating in the mucosa was visualized in the duodenal bulb; completely removed target lesion en bloc by EMR and retrieved specimen. EMR was performed via cap-assisted technique with a hot snare. Post-procedure bleeding was visualized; placed 3 clips successfully (clips are MRI conditional); hemostasis achieved The 2nd part of the duodenum appeared normal. Recommendation Await pathology results Schedule repeat upper EGD IN 2 MONTHS Pantoprazole 40 mg po bid 8 weeks Sucralfate 1 g TID 8 weeks Indication Primary malignant neuroendocrine neoplasm of duodenum (Multi) Staff Staff Role Jeremiah Magaña MD Proceduralist Medications See Anesthesia Record. 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 The patient's blood pressure, heart rate, level of consciousness, oxygen, respirations, ECG and ETCO2 were monitored throughout the procedure. The radial scope was introduced through the mouth and advanced to the second part of the duodenum. The patient's estimated blood loss was minimal (<5 mL). The procedure was not difficult. The patient tolerated the procedure well. There were no apparent adverse events. Events Procedure Events Event Event Time ENDO SCOPE IN TIME 10/07/2023 7:53 AM Specimens ID Type Source Tests Collected by Time 1 : Duodenal Bulb Polyp Tissue DUODENUM ENDOSCOPIC MUCOSAL RESECTION SURGICAL PATHOLOGY EXAM Mayelin Page 10/07/2023 0811 Procedure Location [facility] [address] [facility] [id number] [place] [address] [place] [address] Procedure Provider Jeremiah Magaña MD [facility] Work Phone: [facility] Work Phone: Radiology Study observation (narrative) [facility] Work Phone: Glucose Test strip manual (B ld) [Mass/Vol]on 10-07-2023 Glucose [Mass/Vol] 149 mg/dL High 74 - 99 mg/dL [facility] Interpretation and review of laboratory results Abnormal [facility] Glucose [Mass/Vol] 149 mg/dL High 74-99 [facility] Comment on above: Performed By: #### 2 341-6 #### OLIMPIA WARE ([id number]) [facility] ([facility]) [address] [place] [id number] Surgical pathology studyon 0 10-07-2023 Surgical pathology study Pathology repor t.total SEE COMMENT Surgical Pathology Case: [id number] Authorizing Provider: Jeremiah Magaña MD Collected: 10/07/2023 0811 Ordering Location: [facility] Received: 10/07/2023 0942 Pathologist: Gilda Butterfield Asa, MD PhD Specimen: DUODENUM ENDOSCOPIC MUCOSAL RESECTION, Duodenal Bulb Polyp Path report.final diagnosis SEE COMMENT No pathological diagnosis: Duodenum (bulb) endoscopic mucosal resection Laboratory comment By the signature on this report, the individual or group listed as making the Final Interpretation/Diagnosis certifies that they have reviewed this case. Path report.comments The biopsy shows extensive artefact but stains for chromogranin confirm a normal distribution of positive cells within the mucosa. There is no evidence of residual neuroendocrine tumor in this specimen. 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 The specimen is submitted in toto in 2 cassettes. AE LAB AP ASR DISCLAIMER One or more of the reagents used to perform assays on this specimen MAY have contained components considered to be analyte specific reagents (ASR's). ASR's have not been cleared or approved by the U.S. Food and Drug Administration. These assays were developed and their performance characteristics determined by the Department of Pathology at [facility]. The FDA does not require this test to go through premarket FDA review. This test is used for clinical purposes. It should not be regarded as investigational or for research. This laboratory is certified under the Clinical Laboratory Improvement Amendments (CLIA) as qualified to perform high complexity clinical laboratory testing. The assays were performed with appropriate positive and negative controls which stained appropriately. [facility] 09-15-2023 29 Addended by: ALON GRECO on: 09/15/2023 04:33 PM Modules accepted: Orders [facility] Office Visiton 09-15-2023 Follow-up visit [id number] Nika Car F 1950 Date Provider Department Center 09/15/2023 NOE FERREIRA Family History Problem Relation Age of Onset Angina Mother Cancer Mother Heart attack Mother Heart failure Mother Hypertension Mother Cancer Father Diabetes type II Father Hypertension Father Cancer Sister Diabetes type II Sister Cancer Brother Diabetes type II Brother Hypertension Brother Cancer Brother Diabetes type II Brother Family Status - Relation Status Age at Mother Father Sister Brother Brother Level of Service:03061 HI OFFICE/OUTPATIENT NEW MODERATE MDM 45 MINUTES Reason for Visit and Comments: Follow-up [286363] - Event monitor results [facility] 08-26-2023 36 Spoke with patient's and informed her of increase in hydralazine and new RX sent to [facility]. She verbalized understanding. She will call the office in a few weeks if BP remains elevated. [facility] 3608-25-2023 36 Patient's whitlock d to make you aware that his BP is still running over 130/80. She said he's taken his BP 13 times and only 3 of them have been under 130/80. Did you want to make a medication adjustment? Please advise. [facility] Orders Onlyon 08-25-2023 Orders Only [id number] Nika Car F 1950 M Date Provider Department Center 08/25/2023 LATANYA MINERaren . No family history on file [facility] 36on 08-21-2023 36 Pt's calls for crestor 20 mg refill Normal [facility] 37on 08-18-2023 37 Stop bisprolol Start hydralazine and goal b/p is less than 130/80, call office for any concerns Normal [facility] Office Visiton 08-18-2023 Follow-up visit [id number] Nika Car 1950 M Date Provider Department Center 08/18/2023 Merna-LATANYA [facility] No family history on file Level of Service:45202 HI OFFICE/OUTPATIENT ESTABLISHED MOD MDM 30 MIN Normal [facility] Culture, Urineon 07-31-2023 NV - URINE CULTURE No growth Normal [facility] Comment on above: Order Comment: NV - Source of Urine Collection? Urine clean catch\[id number]\Performed by [facility] [address] [place] [address] NV - Source of Urine Collection? Urine clean catch NV - Current Antibiotic Therapy? No Answer Given Specify (ex-cath, midstream, cysto, etc)?->midstream Performed By: #### C UR #### [facility] [facility] See Report URINE CULTUREon 07-31-2023 Bacteria identified Cx Nom (U) MICROBIOLOGY REPORT [facility], [address] [place] [address], [address] PATIENT: YUSEF CAR LOCATION: [facility] - - : 1950 AGE: 73 SEX: M ADM: 07/31/23 Att. Physician: PHYSICIAN, NON-STAFF Order Id: [id number] Req. Physician: PHYSICIAN, NON-STAFF Source: urine, clean catch Site: Collected: 07/31/23 11:50 Current Antibiotics: not stated Antibiotics comment: - C O M M E N T S NV - Source of Urine Collection? Urine clean catch STATUS OF ORDERED AND REPORTED TESTS URINE CULTURE FINAL 08/02/23 URINE CULTURE FINAL 08/02/23 07:56 08/01/23 No growth-preliminary 08/02/23 No growth Normal [facility] Urinalysis Completeon 2023 BACT None Seen Normal [facility] Comment on above: Performed By: #### U COMP #### [address] [address] Ph. [phone] UBIL Negative Normal Negative [facility] Comment on above: Performed By: #### U COMP #### [address] [address] Ph. [phone] UBLO Negative Normal Negative [facility] Comment on above: Performed By: #### U COMP #### [address] [address] Ph. [phone] UCLAR Clear Normal [facility] Comment on above: Performed By: #### U COMP #### [address] [address] Ph. [phone] UCOL Yellow Normal [facility] Comment on above: Performed By: #### U COMP #### [address] [address] Ph. [phone] UGLU Negative Normal Negative [facility] Comment on above: Performed By: #### U COMP #### [address] [address] Ph. [phone] UKET Negative Normal Negative [facility] Comment on above: Performed By: #### U COMP #### [address] [address] Ph. [phone] ULEU Negative Normal Negative [facility] Comment on above: Performed By: #### U COMP #### [address] [address] Ph. [phone] UNIT Negative Normal Negative [facility] Comment on above: Performed By: #### U COMP #### [address] [address] Ph. [phone] UPH 6.0 Normal 5.0-7.0 [facility] Comment on above: Performed By: #### U COMP #### [address] [address] Ph. [phone] UPRO Negative Normal Negative [facility] Comment on above: Performed By: #### U COMP #### [address] [address] Ph. [phone] URBC None Seen Normal [facility] Comment on above: Performed By: #### U COMP #### [address] [address] Ph. [phone] USG 1.010 Normal 1.005-1.03 0 [facility] Comment on above: Performed By: #### U COMP #### [address] [address] Ph. [phone] UURO 0.2 E.U./dL Normal <2.0 [facility] Comment on above: Performed By: #### U COMP #### [address] [address] Ph. [phone] UWBC None Seen Normal [facility] Comment on above: Performed By: #### U COMP #### [address] [address] Ph. [phone] Study Interpretation of outs jeanna studyon 07-28-2023 There is no result f or this study. This is a placeholder for comparison films only. [facility] RAD US COMPARISON OF OUTSIDE BRYANT MSon 07-28-2023 US COMPARISON OF OUTSIDE FILMS RADRPT There is no result for this study. This is a placeholder for comparison films only. Final result Normal [facility] ANESon 07-27-2023 ANES ----- ----- Attestation signed by Erin Armstrong MD at 07/27/2023 8:32 AM Erin Armstrong MD, MPH, [facility] Interventional Cardiology Pager Email: [email or web address] ----- Patient: Yusef Car Procedure Information Date/Time: 07/27/23 1130 Procedures: Coronary angiography - Lt and CORS, recently admit to [facility]- Near syncope, NSVT, chest pain Right heart cath Location: [facility] ANIMAL PHYSIOLOGIST 3 / [facility]ASCULAR [facility] (Cath) Providers: Erin Armstrong MD Clinical information reviewed: Allergies Meds Physical Exam Airway Mallampati: III TM distance: >3 FB Cardiovascular Rhythm: regular Dental Pulmonary Abdominal Anesthesia Plan ASA 3 Anesthetic plan and risks discussed with patient. Use of blood products discussed with patient who. Plan discussed with attending. Additional Equipment Requests Normal [facility] HPon 07-27-2023 HP ----- ----- Attestation signed [...] Respiratory Denies: shortness of breath or cough [facility] History Bradycardia with 31-40 beats per minute R00.1 - Bradycardia, unspecified (ICD-10) Health Information Management [phone] [facility] 2 Patient name: YUSEF CAR Paroxysmal [...] per week How often do you attend hoahaoism or confucianism services: never Little interest or pleasure in doing things: not at all Feeling down, depressed, or hopeless: not at all Feel stressed/tense/nervous/an xious/difficulty sleeping: not at all Do you think of yourself as: straight/heterosexual Gender Identity: male [employer] Health Information Management [phone] [facility] 3 Patient name: YUSEF CAR Home [...] and aurora (more content not included)... Normal [facility] NURSNOTEon 07-27-2023 NURSNOTE RN educated pt on d/ c instructions. RN encouraged pt to voice any questions or concerns. Pt verbalizes no questions or concerns at this time. Pt was wheeled off of unit with all of belongings. Normal [facility] POCT GLUCOSE METER UNSOLICIT ED RESULTSon 07-27-2023 Glucose [Mass/Vol] 130 mg/dL High 70-105 [facility] Comment on above: Order Comment: Waive d Testing in the ED is performed under the ED CLIA certificate #[id number]. Result Comment: [id number] Performed By: #### L [id number] ####[facility] ([facility])[address] [place] [address] HPon 07-15-2023 Formatting of this n ote is different from the original. Subjective Patient ID: Yusef Car is a 73 y.o. male who presents for Establish Care. Recent hospital admission at [facility]. Abnormal Nuclear stress test. Scheduled for [facility] in Jul. Asmptomatic currently. Current Outpatient [...] without long-term current use of insulin (HCC) ([facility]) Last A1C 6.9 On glimepiride. Stop actose. [...] currently in remission NSVT (nonsustained ventricular tachycardia) ([facility]) Scheduled for [facility] in July. Patient is currently asymptomatic. 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 Start patient on Jardiance. Stop Actose. Relevant Medications empagliflozin (Jardiance) 25 MG Encounter to establish care with new doctor New Patient, here to establish care. Reviewed medical, surgical and social hx. Reviewed available old records. Reviewed and updated medication (more content not included)... [facility] Orders Onlyon 07-10-2023 Orders Only [id number] Nika Car ert 1950 M Date Provider Department Center 07/10/2023 LATANYA MINER EZEQUIEL Ramsay. No family history on file [facility] EGDon 06-10-2023 Esophagogastroduodenosco py Table formatting from the original result was not included. [facility] EGD Study observation Narrat iveon 06-10-2023 Table [...] EXAM Mayelin Page 06/10/2023 0859 Procedure Location [facility] [address] [place] [id number] Referring Provider Jazlyn Mcarthur, Security Risk Analyst-talent assistant [address] [address] [place] [address] Procedure Provider Sam Mcrae MD [facility] Work Phone: [facility] Work Phone: Radiology Study observation (narrative) [facility] Work Phone: Glucose Test strip manual (B ld) [Mass/Vol]on 06-10-2023 Glucose [Mass/Vol] 113 mg/dL High 74 - 99 mg/dL [facility] Interpretation and review of laboratory results Abnormal [facility] Glucose [Mass/Vol] 113 mg/dL High 74-99 [facility] Comment on above: Performed By: #### 2 341-6 #### OLIMPIA WARE ([id number]) [facility] ([facility]) [address] [place] [address] Surgical pathology studyon 1 08-11-2022 Surgical pathology study Pathology repor t.total SEE COMMENT Surgical Pathology Case: [id number] Authorizing Provider: Sam Mcrae MD Collected: 06/10/2023 0859 Ordering Location: [facility] Received: 06/10/2023 0920 Pathologist: Chucho Santacruz MD [...] is submitted in toto in one cassette. 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 COMPARISON: CT abdomen 12/25/2020 ACCESSION NUMBER(S): [id number] ORDERING CLINICIAN: JAZLYN MCARTHUR TECHNIQUE: Contiguous axial [...] scans. 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 COMPARISON: CT abdomen 12/25/2020 ACCESSION NUMBER(S): [id number] ORDERING CLINICIAN: JAZLYN MCARTHUR TECHNIQUE: Contiguous axial [...] Juanjose Walters 05/27/2023 11:47 AM Dictation workstation: [id number] Normal [facility] CT Chest and Abdomen and Pel vis W contrast Kristie 05-26-2023 Radiology Study observation (narrative) [facility] Work Phone: CBC W Auto Differential pane l (Bld)on 05-22-2023 Basophils (Bld) [#/Vol] 0.04 x10*3/uL Normal 0.00-0.10 [facility] Comment on above: Performed By: #### 5 7021-8 #### OLIMPIA WARE ([id number]) [facility] ([facility]) [address] [place] [address] Basophils/100 WBC (Bld) 0.5 % Normal 0.0-2.[address] [facility] Comment on above: Performed By: #### 5 7021-8 #### OLIMPIA WARE (73516) [facility] ([facility]) [address] [place] [address] Eosinophils (Bld) [#/Vol] 0.09 x10*3/uL Normal 0.00-0.40 [facility] Comment on above: Performed By: #### 5 7021-8 #### OLIMPIA WARE (55592) [facility] ([facility]) [address] [place] [address] Eosinophils/100 WBC (Bld) 1.0 % Normal 0.0-6.0 [facility] Comment on above: Performed By: #### 5 7021-8 #### OLIMPIA WARE (21834) [facility] ([facility]) [address] [place] [address] Erythrocyte distribution width (RBC) [Ratio] 15.3 % High 11.5-14.5 [facility] Comment on above: Performed By: #### 5 7021-8 #### OLIMPIA WARE (02524) [facility] ([facility]) [address] [place] [address] Hematocrit (Bld) [Volume fraction] 40.4 % Low 41.0-52.0 [facility] Comment on above: Performed By: #### 5 7021-8 #### OLIMPIA WARE (59716) [facility] ([facility]) [address] [place] [address] Hemoglobin (Bld) [Mass/Vol] 12.7 g/dL Low 13.5-17.5 [facility] Comment on above: Performed By: #### 5 7021-8 #### OLIMPIA WARE (39679) [facility] ([facility]) [address] [place] [address] Immature granulocytes (Bld) [#/Vol] 0.04 x10*3/uL Normal 0.00-0.50 [facility] Comment on above: Performed By: #### 5 7021-8 #### OLIMPIA WARE (96533) [facility] ([facility]) [address] [place] [address] Immature granulocytes/100 WBC (Bld) 0.5 % Normal 0.0-0.9 [facility] Comment on above: Result Comment: Halima ture Granulocyte Count (IG) includes promyelocytes, myelocytes and metamyelocytes but does not include bands. Percent differential counts (%) should be interpreted in the context of the absolute cell counts (cells/UL). Performed By: #### 5 7021-8 #### OLIMPIA WARE (16967) [facility] ([facility]) [address] [place] [address] Lymphocytes (Bld) [#/Vol] 1.47 x10*3/uL Normal 0.80-3.00 [facility] Comment on above: Performed By: #### 5 7021-8 #### OLIMPIA WARE (78185) [facility] ([facility]) [address] [place] [address] Lymphocytes/100 WBC (Bld) 17.0 % Normal 13.0-44.0 [facility] Comment on above: Performed By: #### 5 7021-8 #### OLIMPIA WARE (28024) [facility] ([facility]) [address] [place] [address] MCH (RBC) [Entitic mass] 28.5 pg Normal 26.0-34.0 [facility] Comment on above: Performed By: #### 5 7021-8 #### OLIMPIA WARE (26792) [facility] ([facility]) [address] [place] [address] MCHC (RBC) [Mass/Vol] 31.4 g/dL Low 32.0-36.0 [facility] Comment on above: Performed By: #### 5 7021-8 #### OLIMPIA WARE (25982) [facility] ([facility]) [address] [place] [address] MCV (RBC) [Entitic vol] 91 fL Normal 80-[address] [facility] Comment on above: Performed By: #### 5 7021-8 #### OLIMPIA WARE (02667) [facility] ([facility]) [address] [place] [address] Monocytes (Bld) [#/Vol] 0.54 x10*3/uL Normal 0.05-0.80 [facility] Comment on above: Performed By: #### 5 7021-8 #### OLIMPIA WARE (38317) [facility] ([facility]) [address] [place] [address] Monocytes/100 WBC (Bld) 6.2 % Normal 2.0-10.[address] [facility] Comment on above: Performed By: #### 5 7021-8 #### OLIMPIA WARE (10521) [facility] ([facility]) [address] [place] [address] Neutrophils (Bld) [#/Vol] 6.48 x10*3/uL High 1.60-5.50 [facility] Comment on above: Result Comment: Perc ent differential counts (%) should be interpreted in the context of the absolute cell counts (cells/uL). Performed By: #### 5 7021-8 #### OLIMPIA WARE (59875) [facility] ([facility]) [address] [place] [address] Neutrophils/100 WBC (Bld) 74.8 % Normal 40.0-80.0 [facility] Comment on above: Performed By: #### 5 7021-8 #### OLIMPIA WARE (84741) [facility] ([facility]) [address] [place] [address] Nucleated RBC/100 WBC (Bld) [Ratio] 0.0 /100 WBCs Normal 0.0-0.0 [facility] Comment on above: Performed By: #### 5 7021-8 #### OLIMPIA WARE (02660) [facility] ([facility]) [address] [place] [address] Platelets (Bld) [#/Vol] 403 x10*3/uL Normal 150-450 [facility] Comment on above: Performed By: #### 5 7021-8 #### OLIMPIA WARE (48052) [facility] ([facility]) [address] [place] [address] RBC (Bld) [#/Vol] 4.46 x10*6/uL Low 4.50-5.90 [facility] Comment on above: Performed By: #### 5 7021-8 #### OLIMPIA WARE (93758) [facility] ([facility]) [address] [place] [address] WBC (Bld) [#/Vol] 8.7 x10*3/uL Normal 4.4-11.3 [facility] Comment on above: Performed By: #### 5 7021-8 #### OLIMPIA WARE (29938) [facility] ([facility]) [address] [place] [address] Comprehensive metabolic 2000 panelon 05-22-2023 Albumin BCP dye [Mass/Vol] 4.1 g/dL Normal 3.4-5.0 [facility] Comment on above: Performed By: #### 2 4323-8 #### OLIMPIA WARE (92315) [facility] ([facility]) [address] [place] [address] ALP [Catalytic activity/Vol] 73 U/L Normal 33-136 [facility] Comment on above: Performed By: #### 2 4323-8 #### OLIMPIA WARE (76289) [facility] ([facility]) [address] [place] [address] ALT With P-5'-P [Catalytic activity/Vol] 8 U/L Low 10-52 [facility] Comment on above: Result Comment: Kanwal ents treated with Sulfasalazine may generate falsely decreased results for ALT. Performed By: #### 2 4323-8 #### OLIMPIA WARE (33326) [facility] ([facility]) [address] [place] [address] Anion gap [Moles/Vol] 12 mmol/L Normal 10-20 [facility] Comment on above: Performed By: #### 2 4323-8 #### OLIMPIA WARE (11342) [facility] ([facility]) [address] [place] [address] AST With P-5'-P [Catalytic activity/Vol] 10 U/L Normal 9-39 [facility] Comment on above: Performed By: #### 2 4323-8 #### OLIMPIA WARE (60211) [facility] ([facility]) [address] [place] [address] Bilirubin [Mass/Vol] 0.6 mg/dL Normal 0.0-1.2 [facility] Comment on above: Performed By: #### 2 4323-8 #### OLIMPIA WARE (18650) [facility] ([facility]) [address] [place] [address] Calcium [Mass/Vol] 9.2 mg/dL Normal 8.6-10.[address] [facility] Comment on above: Performed By: #### 2 4323-8 #### OLIMPIA WARE (40407) [facility] ([facility]) [address] [place] [address] Chloride [Moles/Vol] 105 mmol/L Normal 98-107 [facility] Comment on above: Performed By: #### 2 4323-8 #### OLIMPIA WARE (68226) [facility] ([facility]) [address] [place] [address] CO2 [Moles/Vol] 25 mmol/L Normal 21-32 [facility] Comment on above: Performed By: #### 2 4323-8 #### OLIMPIA WARE (50864) [facility] ([facility]) [address] [place] [address] Creatinine [Mass/Vol] 1.27 mg/dL Normal 0.50-1.30 [facility] Comment on above: Performed By: #### 2 4323-8 #### OLIMPIA WARE (19467) [facility] ([facility]) [address] [place] [address] GFR/1.73 sq M.predicted MDRD (S/P/Bld) [Vol rate/Area] 59 mL/min/1.73m*2 Low >60 [facility] Comment on above: Result Comment: Calc ulations of estimated GFR are performed using the 2020 CKD-EPI Study Refit equation without the race variable for the IDMS-Traceable creatinine methods. https://ivissn.asnjournals.org/content/early//ASN.824 2354866 Performed By: #### 2 4323-8 #### OLIMPIA WARE (71825) [facility] ([facility]) [address] [place] [address] Glucose [Mass/Vol] 140 mg/dL High 74-[address] [facility] Comment on above: Performed By: #### 2 4323-8 #### OLIMPIA WARE (46521) [facility] ([facility]) [address] [place] [address] Potassium [Moles/Vol] 4.3 mmol/L Normal 3.5-5.3 [facility] Comment on above: Performed By: #### 2 4323-8 #### OLIMPIA WARE (02017) [facility] ([facility]) [address] [place] [address] Protein [Mass/Vol] 6.5 g/dL Normal 6.4-8.[address] [facility] Comment on above: Performed By: #### 2 4323-8 #### OLIMPIA WARE (84536) [facility] ([facility]) [address] [place] [address] Sodium [Moles/Vol] 138 mmol/L Normal 136-[address] [facility] Comment on above: Performed By: #### 2 4323-8 #### OLIMPIA WARE (85495) [facility] ([facility]) [address] [place] [address] Urea nitrogen [Mass/Vol] 24 mg/dL High 6-23 [facility] Comment on above: Performed By: #### 2 4323-8 #### OLIMPIA WARE ([id number]) [facility] ([facility]) [address] [place] [address] CBC AND DIFFERENTIALon 05-12 % AUTOMATED IMMATURE GRAN Canceled Normal [facility] [place] above: Order Comment: TEST CBC AND DIFFERENTIAL WAS CANCELLED, 05/12/2022 10:[address] wagoner doesnot needed. Result Comment: Halima ture Granulocyte Count (IG) includes promyelocytes, myelocytes and metamyelocytes but does not include bands. Percent differential counts (%) should be interpreted in the context of the absolute cell counts (cells/L). Performed By: #### C BCDF #### [address] [place] [address] % BASOPHIL Canceled Normal [facility] [place] above: Order Comment: TEST CBC AND DIFFERENTIAL WAS CANCELLED, 05/12/2022 10:[address] ciaran mcmanus needed. Performed By: #### C BCDF #### [address] [place] [address] % EOSINOPHIL Canceled Normal [facility] [place] Comment on above: Order Comment: TEST CBC AND DIFFERENTIAL WAS CANCELLED, 05/12/2022 10:[address] ciaran mcmanus needed. Performed By: #### C BCDF #### [address] [place] [address] % LYMPHOCYTE Canceled Normal [facility] [place] Comment on above: Order Comment: TEST CBC AND DIFFERENTIAL WAS CANCELLED, 05/12/2022 10:[address] ciaran mcmanus needed. Performed By: #### C BCDF #### [address] [place] [address] % MONOCYTE Canceled Normal [facility] [place] Comment on above: Order Comment: TEST CBC AND DIFFERENTIAL WAS CANCELLED, 05/12/2022 10:[address] ciaran mcmanus needed. Performed By: #### C BCDF #### [address] [place] [address] % NEUTROPHIL Canceled Normal [facility] [place] Comment on above: Order Comment: TEST CBC AND DIFFERENTIAL WAS CANCELLED, 05/12/2022 10:[address] ciaran mcmanus needed. Performed By: #### C BCDF #### [address] [place] [address] BASOPHIL Canceled Normal [facility] [place] Comment on above: Order Comment: TEST CBC AND DIFFERENTIAL WAS CANCELLED, 05/12/2022 10:[address] ciaran mcmanus needed. Performed By: #### C BCDF #### [address] [place] [address] DIFFERENTIAL Canceled Normal [facility] [place] Comment on above: Order Comment: TEST CBC AND DIFFERENTIAL WAS CANCELLED, 05/12/2022 10:[address] ciaran mcmanus needed. Performed By: #### C BCDF #### [address] [place] [address] EOSINOPHIL Canceled Normal [facility] [place] Comment on above: Order Comment: TEST CBC AND DIFFERENTIAL WAS CANCELLED, 05/12/2022 10:[address] ciaran mcmanus needed. Performed By: #### C BCDF #### [address] [place] [address] HCT Canceled [facility] Comment on above: Order Comment: TEST CBC AND DIFFERENTIAL WAS CANCELLED, 05/12/2022 10:[address] ciaran mcmanus needed. Performed By: #### C BCDF #### [address] [place] [address] HGB Canceled Normal [facility] [place] Comment on above: Order Comment: TEST CBC AND DIFFERENTIAL WAS CANCELLED, 05/12/2022 10:[address] ciaran mcmanus needed. Performed By: #### C BCDF #### [address] [place] [address] LYMPHOCYTE Canceled Normal [facility] [place] Comment on above: Order Comment: TEST CBC AND DIFFERENTIAL WAS CANCELLED, 05/12/2022 10:[address] ciaran mcmanus needed. Performed By: #### C BCDF #### [address] [place] [address] MCHC Canceled Normal [facility] [place] Comment on above: Order Comment: TEST CBC AND DIFFERENTIAL WAS CANCELLED, 05/12/2022 10:[address] ciaran mcmanus needed. Performed By: #### C BCDF #### [address] [place] [address] MCV Canceled Normal [facility] [place] Comment on above: Order Comment: TEST CBC AND DIFFERENTIAL WAS CANCELLED, 05/12/2022 10:[address] ciaran mcmanus needed. Performed By: #### C BCDF #### [address] [place] [address] MONOCYTE Canceled Normal [facility] [place] Comment on above: Order Comment: TEST CBC AND DIFFERENTIAL WAS CANCELLED, 05/12/2022 10:[address] ciaran mcmanus needed. Performed By: #### C BCDF #### [address] [place] [address] NEUTROPHIL Canceled Normal [facility] [place] Comment on above: Order Comment: TEST CBC AND DIFFERENTIAL WAS CANCELLED, 05/12/2022 10:[address] ciaran mcmanus needed. Performed By: #### C BCDF #### [address] [place] [address] PLT Canceled Normal [facility] [place] Comment on above: Order Comment: TEST CBC AND DIFFERENTIAL WAS CANCELLED, 05/12/2022 10:[address] ciaran mcmanus needed. Performed By: #### C BCDF #### [address] [place] [address] RBC Canceled Normal [facility] [place] Comment on above: Order Comment: TEST CBC AND DIFFERENTIAL WAS CANCELLED, 05/12/2022 10:[address] ciaran mcmanus needed. Performed By: #### C BCDF #### [address] [place] [address] RDW-CV Canceled Normal [facility] [place] Comment on above: Order Comment: TEST CBC AND DIFFERENTIAL WAS CANCELLED, 05/12/2022 10:[address] ciaran mcmanus needed. Performed By: #### C BCDF #### [address] [place] [address] WBC Canceled Normal [facility] [place] Comment on above: Order Comment: TEST CBC AND DIFFERENTIAL WAS CANCELLED, 05/12/2022 10:[address] ciaran mcmanus needed. Performed By: #### C BCDF #### [address] [place] [address] COMPREHENSIVE PANELon 2021 ALBUMIN Canceled Normal [facility] [place] Comment on above: Order Comment: TEST COMPREHENSIVE PANEL WAS CANCELLED, 05/12/2022 10:[address] ciaran mcmanus needed. Performed By: #### C MP #### [address] [place] [address] ALKALINE PHOSPHATASE Canceled Normal [facility] [place] Comment on above: Order Comment: TEST COMPREHENSIVE PANEL WAS CANCELLED, 05/12/2022 10:[address] ciaran mcmanus needed. Performed By: #### C MP #### [address] [place] [address] ALT Canceled Normal [facility] [place] Comment on above: Order Comment: TEST COMPREHENSIVE PANEL WAS CANCELLED, 05/12/2022 10:[address] ciaran mcmanus needed. Result Comment: Kanwal ents treated with Sulfasalazine may generate falsely decreased results for ALT. Performed By: #### C MP #### [address] [place] [address] ANION GAP Canceled Normal [facility] [place] Comment on above: Order Comment: TEST COMPREHENSIVE PANEL WAS CANCELLED, 05/12/2022 10:[address] ciaran mcmanus needed. Performed By: #### C MP #### [address] [place] [address] AST Canceled Normal [facility] [place] Comment on above: Order Comment: TEST COMPREHENSIVE PANEL WAS CANCELLED, 05/12/2022 10:[address] wagoner doesngustabo needed. Performed By: #### C MP #### [address] [place] [address] BICARBONATE Canceled Normal [facility] [place] Comment on above: Order Comment: TEST COMPREHENSIVE PANEL WAS CANCELLED, 05/12/2022 10:[address] ciaran mcmanus needed. Performed By: #### C MP #### [address] [place] [address] BILIRUBIN,TOTAL Canceled Normal [facility] [place] Comment on above: Order Comment: TEST COMPREHENSIVE PANEL WAS CANCELLED, 05/12/2022 10:[address] ciaran mcmanus needed. Performed By: #### C MP #### [address] [place] [address] CALCIUM Canceled Normal [facility] [place] Comment on above: Order Comment: TEST COMPREHENSIVE PANEL WAS CANCELLED, 05/12/2022 10:[address] ciaran mcmanus needed. Performed By: #### C MP #### [address] [place] [address] CHLORIDE Canceled [facility] Comment on above: Order Comment: TEST COMPREHENSIVE PANEL WAS CANCELLED, 05/12/2022 10:[address] ciaran mcmanus needed. Performed By: #### C MP #### [address] [place] [address] CREATININE Canceled Normal [facility] [place] Comment on above: Order Comment: TEST COMPREHENSIVE PANEL WAS CANCELLED, 05/12/2022 10:[address] ciaran mcmanus needed. Performed By: #### C MP #### [address] [place] [address] eGFR FEMALE Canceled Normal [facility] [place] Comment on above: Order Comment: TEST COMPREHENSIVE PANEL WAS CANCELLED, 05/12/2022 10:[address] ciaran mcmanus needed. Result Comment: CALC ULATIONS OF ESTIMATED GFR ARE PERFORMED USING THE 2020 CKD-EPI STUDY REFIT EQUATION WITHOUT THE RACE VARIABLE FOR THE IDMS-TRACEABLE CREATININE METHODS. https://jasn.asnjournals.org/content/early//ASN.261 0336056 Performed By: #### C MP #### [address] [place] [address] eGFR MALE Canceled Normal [facility] [place] Comment on above: Order Comment: TEST COMPREHENSIVE PANEL WAS CANCELLED, 05/12/2022 10:[address] ciaran mcmanus needed. Result Comment: CALC ULATIONS OF ESTIMATED GFR ARE PERFORMED USING THE 2020 CKD-EPI STUDY REFIT EQUATION WITHOUT THE RACE VARIABLE FOR THE IDMS-TRACEABLE CREATININE METHODS. https://jasn.asnjournals.org/content/earlyASN.282 5251487 Performed By: #### C MP #### [address] [place] [address] GLUCOSE Canceled Normal [facility] [place] Comment on above: Order Comment: TEST COMPREHENSIVE PANEL WAS CANCELLED, 05/12/2022 10:[address] ciaran mcmanus needed. Performed By: #### C MP #### [address] [place] [address] POTASSIUM Canceled Normal [facility] [place] Comment on above: Order Comment: TEST COMPREHENSIVE PANEL WAS CANCELLED, 05/12/2022 10:[address] ciaran mcmanus needed. Performed By: #### C MP #### [address] [place] [address] SODIUM Canceled Normal [facility] [place] Comment on above: Order Comment: TEST COMPREHENSIVE PANEL WAS CANCELLED, 05/12/2022 10:[address] ciaran mcmanus needed. Performed By: #### C MP #### [address] [place] [address] TOTAL PROTEIN Canceled Normal [facility] [place] Comment on above: Order Comment: TEST COMPREHENSIVE PANEL WAS CANCELLED, 05/12/2022 10:[address] ciaran mcmanus needed. Performed By: #### C MP #### [address] [place] [address] UREA NITROGEN Canceled Normal [facility] [place] Comment on above: Order Comment: TEST COMPREHENSIVE PANEL WAS CANCELLED, 05/12/2022 10:[address] ciaran mcmanus needed. Performed By: #### C MP #### [address] [place] [address] Clinic Note - Heme Onc-Follo w Up Visiton 05-12-2022 Clinic Note - Heme Onc-Follow Up Visit Patient Visit Information: Visit Type: Follow Up Visit History of Present Illness: ID Statement: YUSEF CAR is a 72 year old Male Chief Complaint: Duodenal neuroendocrine tumor Interval History: 71 years old gentleman from [place], [place] who has been referred to me from [facility]. The patient complained of acid reflux for [...] Weights & Heights: Date: Weight/Scale Type:Height: 26-Aug-2021 13:10808 kg / standing .8 cm 20-May-2021 12:09343 kg / standing occsr360.8 cm 04-Feb-2021 09:21814 kg / standing qjxir524.8 cm Physical Exam: Constitutional: Appears well and [...] 26-Aug-2021 1 (more content not included)... Normal [facility] Clinic Note - Intakeon 05-12 Clinic Note [...] 3 Weights & HeightsDate: Weight/Scale Type:Height: 26-Aug-2021 13:91555 kg / standing .8 cm 20-May-2021 12:20307 kg / standing kvexh219.8 cm SpO2 (%)94 % SpO2 Patient Onroom [...] 12-May-2022 09:56 by Kindra Maher (PCNA) Normal [facility] GLUCOSE-POCTon 04-29-2022 Glucose [Mass/Vol] 139 mg/dL High 74 - 99 [facility] Comment on above: Performed By: #### G MARIXA #### [facility] [address] [place] [address] Laboratory - Chemistry and C hemistry - challengeon 04-29-2022 Glucose [Mass/Vol] 139 mg/dL above high threshold 74 - [address] [facility] Work Phone: No Panel Informationon 04-[address] [facility] Work Phone: [email or web address] =[email or web address]} [facility] Work Phone: [facility] Work Phone: Order Reconciliationon 04-29 Order Reconciliation [...] 1 tab(s) orally once a day Normal [facility] Surgical Pathology Depar tmenton 04-29-2022 [facility] Surgical Pathology Department Name YUSEF CAR [...] reviewed this case. Diagnostic interpretation performed at [facility] [address] [place] [address] Clinical History: Follow up history of duodenal [...] positive and negative controls which stained appropriately. [facility] Department of Pathology [address] [place] [address] Normal [facility] Comment on above: Performed By: #### U [facility] #### [facility] Surgical Pathology Department [address] [place] [address] Upper GI endoscopy 022 Upper GI endoscopy PATIENTNAME Patient Name: Yusef Car EXAMDATE Procedure Date: 04/29/2022 7:25 AM PATIENTID PATIENTACCOUNTNUM PATIENTDOB Date of : 1950 ADMITTYPE Admit Type: Outpatient PATIENTROOM Site: [facility] Room 1 ETHNICITY Ethnicity: Not or RACE Race: White PROVDR Attending MD: Jeremiah Magaña MD, [id number] ENDOPROCEDURENAME Procedure: Upper GI endoscopy INDICATION Indications: [...] (Doctor), Martha Kyle RN (Nurse), Moi Huff, Interactive Project Manager EDREFPROVIDER Referring: Vanessa Steele CURRENT_MEDS Medicines: See [...] diet. 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 All rights reserved. The codes documented in this report are preliminary and upon family lawyer review may be revised to meet current compliance requirements. ATTDRPART Attending Participa (more content not included)... Normal [facility] General/Metabolic - Sugey duggan 12-05-2021 General/Metabolic - Established Patient Discussion/Summary - [...] history, the 84 gene Multi-Cancer Panel from [employer] was recommended and ordered. - I called [...] no significant history of cancer and/or Ashkenazi Zoroastrian ancestry on their mother's side, no genetic [...] any changes since our discussion today. Lulu Calle, MS, [facility] Licensed Genetic Counselor [employer] [phone]. Chief Complaint Patient seen for discussion of [...] Dec 05 2021 3:54PM EST (Review) [facility] (Genetics)on Follow-up visit Patient Discussion/Summary [...] 84-gene Multi-Cancer + RNA analysis panel from [employer]. Our discussion is summarized below. We reviewed [...] affected individuals), and endocrine tumors of the epykep-vgkfmo-yhnkychaxb (GEP) tract. Clinically, MEN1 is diagnosed when [...] However, luxury insurances such as life insurance, halfway care insurance, and/or private disability insurance companies [...] hereditary ca (more content not included)... Normal [facility] Clinic Note - Heme Onc-Follo w Up Visiton 08-26-2021 Clinic Note - Heme Onc-Follow Up Visit Patient Visit Information: Visit Type: Follow Up Visit History of Present Illness: ID Statement: Mr. Car is a 71 year old male Chief Complaint: Duodenal neuroendocrine tumor Interval History: 71 years old gentleman from [place], [place] who has been referred to me from [facility]. The patient complained of acid reflux for [...] Weights & Heights: Date: Weight/Scale Type:Height: 26-Aug-2021 13:41220 kg / standing .8 cm 20-May-2021 12:62901 kg / standing ymzfj154.8 cm 04-Feb-2021 09:72586 kg / standing .8 cm Physical Exam: [...] 13 Complet (more content not included)... Normal [facility] Clinic Note - Intakeon 08-26 Clinic Note - Intake Patient Visit Information: Visit TypeFollow Up Visit Source of Informationpatient Accompanied byspouse Admission Information: Admission Since Last VisitYes [facility] of [facility] Admission [id number] Admission Reason/Detailssepsis and removal of gall bladder [...] 3 Weights & HeightsDate: Weight/Scale Type:Height: 20-May-2021 12:85334 kg / standing .8 cm 04-Feb-2021 09:21533 kg / standing .8 cm 07-Jan-2021 13:93146 kg / standing fafko450.8 cm SpO2 (%)95 % SpO2 Patient Onroom [...] 26-Aug-2021 13:50 by Latanya Bhat (PCNA) Normal [facility] CULTURE BLOODon 06-09-2021 Microscopic examination of blood, [...] F Trimethoprim/Sulfamethoxa zole <=20 S F Normal [facility] Comment on above: Performed By: #### C BCMAN #### [facility] [address] [place] [address] Dr. Freda Wayne CBC AUTO DIFFon 06-06-2021 BASO # 0.0 103/ul Normal 0.0-0.1 [facility] Comment on above: Performed By: #### P OCGLUC #### [facility] [address] [place] [address] José Luis Kisha Basophils/100 WBC (Bld) 0.1 % Critically low 0.2-2.0 [facility] Comment on above: Performed By: #### P OCGLUC #### [facility] [address] [place] [address] José Luis Kisha EO # 0.0 103/ul Normal 0.0-0.7 [facility] Comment on above: Performed By: #### P OCGLUC #### [facility] [address] [place] [address] José Luis Kisha Eosinophils/100 WBC (Bld) 0.0 % Critically low 0.9-7.0 [facility] Comment on above: Performed By: #### P OCGLUC #### [facility] [address] [place] [address] José Luis Kisha Erythrocyte distribution width (RBC) [Ratio] 15.1 % Critically high 11.0-15.0 [facility] Comment on above: Performed By: #### P OCGLUC #### [facility] [address] [place] [address] José Luis Kisha Hematocrit (Bld) [Volume fraction] 34.7 % Critically low 42.0-54.0 [facility] Comment on above: Performed By: #### P OCGLUC #### [facility] [address] [place] [address] José Luis Kisha Hemoglobin (Bld) [Mass/Vol] 10.9 g/dL Critically low 14.0-18.0 [facility] Comment on above: Performed By: #### P OCGLUC #### [facility] [address] [place] [address] José Luis Beard IG # 0.04 10e3/ul Critically high 0.00-0.03 [facility] Comment on above: Performed By: #### P OCGLUC #### [facility] [address] [place] [address] José Luis Beard IG % 0.4 % Normal 0.0-0.5 [facility] Comment on above: Performed By: #### P OCGLUC #### [facility] [address] [place] [address] José Luis Beard LYMPH # 0.5 103/ul Critically low 1.2-3.8 [facility] Comment on above: Performed By: #### P OCGLUC #### [facility] [address] [place] [address] José Luis Beard Lymphocytes/100 WBC (Bld) 5.5 % Critically low 20.5-60.0 [facility] Comment on above: Performed By: #### P OCGLUC #### [facility] [address] [place] [address] José Luis Beard MANUAL DIFF REQ NO Normal [facility] Comment on above: Performed By: #### P OCGLUC #### [facility] [address] [place] [address] José Luis Beard MCH (RBC) [Entitic mass] 28.2 pg Normal 25.9-34.0 [facility] Comment on above: Performed By: #### P OCGLUC #### [facility] [address] [place] [address] José Luis Beard MCHC (RBC) [Mass/Vol] 31.4 g/dL Normal 29.9-35.2 [facility] Comment on above: Performed By: #### P OCGLUC #### [facility] [address] [place] [address] José Luis Beard MCV (RBC) [Entitic vol] 89.9 fL Normal 80.0-94.0 [facility] Comment on above: Performed By: #### P OCGLUC #### [facility] [address] [place], [place] [address] José Luis Beard MONO # 0.9 103/ul Critically high 0.3-0.8 [facility] Comment on above: Performed By: #### P OCGLUC #### [facility] [address] [place] [address] José Luis Beard Monocytes/100 WBC (Bld) 9.4 % Normal 1.7-12.0 [facility] Comment on above: Performed By: #### P OCGLUC #### [facility] [address] [place] [address] José Luis Beard NEUT # 8.1 103/ul Critically high 1.4-6.5 [facility] Comment on above: Performed By: #### P OCGLUC #### [facility] [address] [place] [address] José Luis Beard Neutrophils/100 WBC (Bld) 84.6 % Critically high 43.0-75.0 [facility] Comment on above: Performed By: #### P OCGLUC #### [facility] [address] [place] [address] José Luis Beard Platelet mean volume (Bld) [Entitic vol] 10.5 fL Normal 9.5-13.5 [facility] Comment on above: Performed By: #### P OCGLUC #### [facility] [address] [place] [address] José Luis Mathuren PLT 263 103/ul Normal 150-450 [facility] Comment on above: Performed By: #### P OCGLUC #### [facility] [address] [place], [place] [address] José Luis Kisha RBC 3.86 106/ul Critically low 4.70-6.10 [facility] Comment on above: Performed By: #### P OCGLUC #### [facility] [address] [place] [address] José Luis Kisha WBC 9.6 103/ul Normal 4.0-11.0 [facility] Comment on above: Performed By: #### P OCGLUC #### [facility] [address] [id number] José Luis Kisha CULTURE BLOODon 06-06-2021 Microscopic examination of blood, culture Culture Observations: NO GROWTH AT 5 DAYS. Normal [facility] Comment on above: Performed By: #### C BCMAN #### [facility] [address] [address] [address] Freda Wayne POINT OF CARE GLUCOSEon 05-16 Glucose [Mass/Vol] 192 mg/dL Critically high 74-106 [facility] Comment on above: Performed By: #### P OCGLUC #### [facility] [address] [place] [address] Dr. Freda Wayne PROF 14(COMP METB)on 021 Albumin [Mass/Vol] 2.6 g/dL Critically low 3.5-5.0 [facility] Comment on above: Performed By: #### P OCGLUC #### [facility] [address] [place] [address] José Luis Kisha Albumin/Globulin [Mass ratio] 0.7 {ratio} Normal [facility] Comment on above: Performed By: #### P OCGLUC #### [facility] [address] [place] [address] José Luis Kisha ALP [Catalytic activity/Vol] 233 U/L Critically high 38-126 [facility] Comment on above: Performed By: #### P OCGLUC #### [facility] [address] [place] [address] José Luis Kisha ALT [Catalytic activity/Vol] 103 U/L Critically high 21-72 [facility] Comment on above: Performed By: #### P OCGLUC #### [facility] [address] [place] [address] José Luis Kisha Anion gap [Moles/Vol] 12.2 mmol/L Normal [facility] Comment on above: Performed By: #### P OCGLUC #### [facility] [address] [place] [address] José Luis Kisha AST [Catalytic activity/Vol] 44 U/L Normal 17-59 [facility] Comment on above: Performed By: #### P OCGLUC #### [facility] [address] [address] José Luis Kisha Bilirubin [Mass/Vol] 0.4 mg/dL Normal 0.2-1.3 [facility] Comment on above: Performed By: #### P OCGLUC #### [facility] [address] [address] José Luis Kisha Calcium [Mass/Vol] 9.0 mg/dL Normal 8.4-10.2 [facility] Comment on above: Performed By: #### P OCGLUC #### [facility] [address] [place] [address] José Luis Kisha Chloride [Moles/Vol] 102 mmol/L Normal 98-107 [facility] Comment on above: Performed By: #### P OCGLUC #### [facility] [address] [place] [address] José Luis Kisha CO2 [Moles/Vol] 26.9 mmol/L Normal 22.0-30.0 [facility] Comment on above: Performed By: #### P OCGLUC #### [facility] [address] [place] [address] José Luis Kisha Creatinine [Mass/Vol] 1.22 mg/dL Normal 0.66-1.25 [facility] Comment on above: Performed By: #### P OCGLUC #### [facility] [address] [place] [address] José Luis Kisha EGFR-AF GABONESE >60 Normal >=60 [facility] Comment on above: Performed By: #### P OCGLUC #### [facility] [address] [address] José Luis Kisha EGFR-NON AF GABONESE 58 mL/min/1.73m2 Critically low >=60 [facility] Comment on above: Performed By: #### P OCGLUC #### [facility] [address] [place] [address] José Luis Kisha Globulin (S) [Mass/Vol] 3.6 g/dL Normal [facility] Comment on above: Performed By: #### P OCGLUC #### [facility] [address] [address] José Luis Kisha Glucose [Mass/Vol] 152 mg/dL Critically high 74-106 [facility] Comment on above: Performed By: #### P OCGLUC #### [facility] [address] [address] José Luis Kisha Potassium [Moles/Vol] 4.1 mmol/L Normal 3.4-5.0 [facility] Comment on above: Performed By: #### P OCGLUC #### [facility] [address] [address] José Luis Kisha Protein [Mass/Vol] 6.2 g/dL Normal 6.1-8.2 [facility] Comment on above: Performed By: #### P OCGLUC #### [facility] [address] [address] José Luis Kisha Sodium [Moles/Vol] 137 mmol/L Normal 137-145 [facility] Comment on above: Performed By: #### P OCGLUC #### [facility] [address] [address] José Luis Kisha Urea nitrogen [Mass/Vol] 12.0 mg/dL Normal 9.0-20.0 [facility] Comment on above: Performed By: #### P OCGLUC #### [facility] [address] [address] José Luis Kisha Urea nitrogen/Creatinine [Mass ratio] 9.8 mg/mg Normal [facility] Comment on above: Performed By: #### P OCGLUC #### [facility] [address] [address] José Luis Kisha CBC AUTO DIFFon 06-05-2021 BASO # 0.0 103/ul Normal 0.0-0.1 [facility] Comment on above: Performed By: #### P OCGLUC #### [facility] [address] [address] [address] Freda Wayne Basophils/100 WBC (Bld) 0.2 % Normal 0.2-2.0 [facility] Comment on above: Performed By: #### P OCGLUC #### [facility] [address] [address] [address] Freda Wayne EO # 0.0 103/ul Normal 0.0-0.7 [facility] Comment on above: Performed By: #### P OCGLUC #### [facility] [address] [place] [address] Dr. Freda Wayne Eosinophils/100 WBC (Bld) 0.4 % Critically low 0.9-7.0 [facility] Comment on above: Performed By: #### P OCGLUC #### [facility] [address] [place] [address] Dr. Freda Wayne Erythrocyte distribution width (RBC) [Ratio] 15.4 % Critically high 11.0-15.0 [facility] Comment on above: Performed By: #### P OCGLUC #### [facility] [address] [place] [address] Dr. Freda Wayne Hematocrit (Bld) [Volume fraction] 35.5 % Critically low 42.0-54.0 [facility] Comment on above: Performed By: #### P OCGLUC #### [facility] [address] [place] [address] Dr. Freda Wayne Hemoglobin (Bld) [Mass/Vol] 11.5 g/dL Critically low 14.0-18.0 [facility] Comment on above: Performed By: #### P OCGLUC #### [facility] [address] [place] [address] Dr. Freda Wayne IG # 0.04 10e3/ul Critically high 0.00-0.03 [facility] Comment on above: Performed By: #### P OCGLUC #### [facility] [address] [place] [address] Dr. Freda Wayne IG % 0.4 % Normal 0.0-0.5 [facility] Comment on above: Performed By: #### P OCGLUC #### [facility] [address] [place] [address] Dr. Freda Wayne LYMPH # 0.7 103/ul Critically low 1.2-3.8 [facility] Comment on above: Performed By: #### P OCGLUC #### [facility] [address] [address] [address] Freda Wayne Lymphocytes/100 WBC (Bld) 7.4 % Critically low 20.5-60.0 [facility] Comment on above: Performed By: #### P OCGLUC #### [facility] [address] [place] [address] Dr. Freda Wayne MANUAL DIFF REQ NO Normal [facility] Comment on above: Performed By: #### P OCGLUC #### [facility] [address] [address] [address] Freda Wayne MCH (RBC) [Entitic mass] 28.8 pg Normal 25.9-34.0 [facility] Comment on above: Performed By: #### P OCGLUC #### [facility] [address] [place] [address] Dr. Freda Wayne MCHC (RBC) [Mass/Vol] 32.4 g/dL Normal 29.9-35.2 [facility] Comment on above: Performed By: #### P OCGLUC #### [facility] [address] [place] [address] Dr. Freda Wayne MCV (RBC) [Entitic vol] 89.0 fL Normal 80.0-94.0 [facility] Comment on above: Performed By: #### P OCGLUC #### [facility] [address] [place] [address] Dr. Freda Wayne MONO # 1.1 103/ul Critically high 0.3-0.8 [facility] Comment on above: Performed By: #### P OCGLUC #### [facility] [address] [place] [address] Dr. Freda Wayne Monocytes/100 WBC (Bld) 10.5 % Normal 1.7-12.0 [facility] Comment on above: Performed By: #### P OCGLUC #### [facility] [address] [place] [address] Dr. Freda Wayne NEUT # 8.2 103/ul Critically high 1.4-6.5 [facility] Comment on above: Performed By: #### P OCGLUC #### [facility] [address] [address] [address] Freda Wayne Neutrophils/100 WBC (Bld) 81.1 % Critically high 43.0-75.0 [facility] Comment on above: Performed By: #### P OCGLUC #### [facility] [address] [address] [address] Freda Wayne Platelet mean volume (Bld) [Entitic vol] 10.4 fL Normal 9.5-13.5 [facility] Comment on above: Performed By: #### P OCGLUC #### [facility] [address] [address] [address] Freda Wayne PLT 262 103/ul Normal 150-450 [facility] Comment on above: Performed By: #### P OCGLUC #### [facility] [address] [address] [address] Freda Wayne RBC 3.99 106/ul Critically low 4.70-6.10 [facility] Comment on above: Performed By: #### P OCGLUC #### [facility] [address] [address] [address] Freda Wayne WBC 10.1 103/ul Normal 4.0-11.0 [facility] Comment on above: Performed By: #### P OCGLUC #### [facility] [address] [address] [address] Freda Wayne POINT OF CARE GLUCOSEon 05-16 Glucose [Mass/Vol] 208 mg/dL Critically high 74-106 [facility] Comment on above: Performed By: #### P OCGLUC #### [facility] [address] [address] [address] Freda Wayne Glucose [Mass/Vol] 188 mg/dL Critically high 74-106 [facility] Comment on above: Performed By: #### P OCGLUC #### [facility] [address] [address] [address] Freda Wayne Glucose [Mass/Vol] 143 mg/dL Critically high 74-106 [facility] Comment on above: Performed By: #### P OCGLUC #### [facility] [address] [id number] José Luis Beard PROF 14(COMP METB)on 021 Albumin [Mass/Vol] 2.8 g/dL Critically low 3.5-5.0 [facility] Comment on above: Performed By: #### P OCGLUC #### [facility] [address] [place], [place] [id number] José Luis Kisha Albumin/Globulin [Mass ratio] 0.8 {ratio} Normal [facility] Comment on above: Performed By: #### P OCGLUC #### [facility] [address] [place] [address] José Luis Mathuren ALP [Catalytic activity/Vol] 126 U/L Normal 38-126 [facility] Comment on above: Performed By: #### P OCGLUC #### [facility] [address] [place] [address] José Luis Kisha ALT [Catalytic activity/Vol] 109 U/L Critically high 21-72 [facility] Comment on above: Performed By: #### P OCGLUC #### [facility] [address] [place] [address] José Luis Kisha Anion gap [Moles/Vol] 14.4 mmol/L Normal [facility] Comment on above: Performed By: #### P OCGLUC #### [facility] [address] [place] [address] José Luis Kisha AST [Catalytic activity/Vol] 42 U/L Normal 17-59 [facility] Comment on above: Performed By: #### P OCGLUC #### [facility] [address] [place] [address] José Luis Kisha Bilirubin [Mass/Vol] 0.7 mg/dL Normal 0.2-1.3 [facility] Comment on above: Performed By: #### P OCGLUC #### [facility] [address] [place] [address] José Luis Kisha Calcium [Mass/Vol] 8.7 mg/dL Normal 8.4-10.2 [facility] Comment on above: Performed By: #### P OCGLUC #### [facility] [address] [address] José Luis Kisha Chloride [Moles/Vol] 100 mmol/L Normal 98-107 [facility] Comment on above: Performed By: #### P OCGLUC #### [facility] [address] [address] José Luis Kisha CO2 [Moles/Vol] 26.1 mmol/L Normal 22.0-30.0 [facility] Comment on above: Performed By: #### P OCGLUC #### [facility] [address] [address] José Luis Kisha Creatinine [Mass/Vol] 1.23 mg/dL Normal 0.66-1.25 [facility] Comment on above: Performed By: #### P OCGLUC #### [facility] [address] [address] José Luis Kisha EGFR-AF GABONESE >60 Normal >=60 [facility] Comment on above: Performed By: #### P OCGLUC #### [facility] [address] [address] José Luis Kisha EGFR-NON AF GABONESE 58 mL/min/1.73m2 Critically low >=60 [facility] Comment on above: Performed By: #### P OCGLUC #### [facility] [address] [address] José Luis Kisha Globulin (S) [Mass/Vol] 3.5 g/dL Normal [facility] Comment on above: Performed By: #### P OCGLUC #### [facility] [address] [address] José Luis Kisha Glucose [Mass/Vol] 139 mg/dL Critically high 74-106 [facility] Comment on above: Performed By: #### P OCGLUC #### [facility] [address] [address] José Luis Kisha Potassium [Moles/Vol] 3.5 mmol/L Normal 3.4-5.0 [facility] Comment on above: Performed By: #### P OCGLUC #### [facility] [address] [place] [address] José Luis Kisha Protein [Mass/Vol] 6.3 g/dL Normal 6.1-8.2 [facility] Comment on above: Performed By: #### P OCGLUC #### [facility] [address] [place] [address] José Luis Kisha Sodium [Moles/Vol] 137 mmol/L Normal 137-145 [facility] Comment on above: Performed By: #### P OCGLUC #### [facility] [address] [place] [address] José Luis Kisha Urea nitrogen [Mass/Vol] 12.0 mg/dL Normal 9.0-20.0 [facility] Comment on above: Performed By: #### P OCGLUC #### [facility] [address] [place] [address] José Luis Kisha Urea nitrogen/Creatinine [Mass ratio] 9.8 mg/mg Normal [facility] Comment on above: Performed By: #### P OCGLUC #### [facility] [address] [place] [address] José Luis Kisha CBC W MANUAL DIFFon 06-04-20 21 ATYPICAL LYMPH # Normal [facility] Comment on above: Performed By: #### C BCMAN #### [facility] [address] [place] [address] Dr. Freda Wayne ATYPICAL LYMPH % Normal [facility] Comment on above: Performed By: #### C BCMAN #### [facility] [address] [place] [address] Dr. Freda Wayne BAND # 0.3 103/ul Normal 0.0-0.3 [facility] Comment on above: Performed By: #### C BCMAN #### [facility] [address] [place] [address] Dr. Freda Wayne BAND % 3 % Normal 0-5 [facility] Comment on above: Performed By: #### C BCMAN #### [facility] [address] [place] [address] Dr. Freda Wayne BASOM # 0.00 103/ul Normal 0.00-0.10 [facility] Comment on above: Performed By: #### C BCMAN #### [facility] [address] [place] [address] Dr. Freda Wayne BASOM % 0.0 % Critically low 0.2-2.0 [facility] Comment on above: Performed By: #### C BCMAN #### [facility] [address] [place] [address] Dr. Freda Wayne BLAST # Normal [facility] Comment on above: Performed By: #### C BCJOE #### [facility] [address] [place] [address] Dr. Freda Wayne BLAST % Normal [facility] Comment on above: Performed By: #### C NICOLE #### [facility] [address] [place] [address] Dr. Freda Wayne CORRECTED WBC Normal 4.0-11.0 [facility] Comment on above: Performed By: #### C NICOLE #### [facility] [address] [place] [address] Dr. Freda Wayne EOS # 0.00 103/ul Normal 0.00-0.70 [facility] Comment on above: Performed By: #### C NICOLE #### [facility] [address] [place] [address] Dr. Freda Wayne EOS% 0.0 % Critically low 0.9-7.0 [facility] Comment on above: Performed By: #### C NICOLE #### [facility] [address] [place] [address] Dr. Freda Wayne HCT 35.4 % Critically low 42.0-54.0 [facility] Comment on above: Performed By: #### C BCJOE #### [facility] [address] [place] [address] Dr. Freda Wayne HGB 11.3 g/dl Critically low 14.0-18.0 [facility] Comment on above: Performed By: #### C BCJOE #### [facility] [address] [place] [address] Dr. Freda Wayne LYMPHM # 0.65 103/ul Critically low 1.20-3.80 [facility] Comment on above: Performed By: #### C NICOLE #### [facility] [address] [place] [address] Dr. Freda Wayne LYMPHM% 6.0 % Critically low 20.5-60.0 [facility] Comment on above: Performed By: #### C NICOLE #### [facility] [address] [place] [address] Dr. Freda Wayne MCH 28.8 pg Normal 25.9-34.0 [facility] Comment on above: Performed By: #### C NIOCLE #### [facility] [address] [place] [address] Dr. Freda Wayne MCHC 31.9 g/dl Normal 29.9-35.2 [facility] Comment on above: Performed By: #### C NICOLE #### [facility] [address] [place] [address] Dr. Freda Wayne MCV 90.3 fL Normal 80.0-94.0 [facility] Comment on above: Performed By: #### C NICOLE #### [facility] [address] [place] [address] Dr. Freda Wayne METAMYELOCYTE # Normal [facility] Comment on above: Performed By: #### C NICOLE #### [facility] [address] [place] [address] Dr. Freda Wayne METAMYELOCYTE % Normal [facility] Comment on above: Performed By: #### C NICOLE #### [facility] [address] [place] [address] Dr. Freda Wayne MONOM# 0.76 103/ul Normal 0.30-0.80 [facility] Comment on above: Performed By: #### C NICOLE #### [facility] [address] [place] [address] Dr. Freda Wayne MONOM% 7.0 % Normal 1.7-12.0 [facility] Comment on above: Performed By: #### C NICOLE #### [facility] [address] [place] [address] Dr. Freda Wayne MPV 10.2 fL Normal 9.5-13.5 [facility] Comment on above: Performed By: #### C NICOLE #### [facility] [address] [place] [address] Dr. Freda Wayne MYELOCYTE # Normal [facility] Comment on above: Performed By: #### C NICOLE #### [facility] [address] [place] [address] Dr. Freda Wayne MYELOCYTE % Normal [facility] Comment on above: Performed By: #### C NICOLE #### [facility] [address] [place] [address] Dr. Freda Wayne NRBC Normal [facility] Comment on above: Performed By: #### C NICOLE #### [facility] [address] [place] [address] Dr. Freda Wayne PLT 275 103/ul Normal 150-450 [facility] Comment on above: Performed By: #### C NICOLE #### [facility] [address] [place] [address] Dr. Freda Wayne RBC 3.92 106/ul Critically low 4.70-6.10 [facility] Comment on above: Performed By: #### C NICOLE #### [facility] [address] [place] [address] Dr. Freda Wayne RDW 15.5 % Critically high 11.0-15.0 [facility] Comment on above: Performed By: #### C NICOLE #### [facility] [address] [place] [address] Dr. Freda Wayne SEG # 9.16 103/ul Critically high 1.40-6.50 [facility] Comment on above: Performed By: #### C NICOLE #### [facility] [address] [place] [address] Dr. Freda Wayne SEG % 84.0 % Critically high 43.0-75.0 [facility] Comment on above: Performed By: #### C NICOLE #### [facility] [address] [place] [address] Dr. Freda Wayne WBC 10.9 103/ul Normal 4.0-11.0 [facility] Comment on above: Performed By: #### C BCMAN #### [facility] [address] [place] [address] Dr. Freda Wayne NM HEPATOBILIARY SCANon 05-16 [...] by: CINDI RYAN Date: 2021-06-04 00:06 Normal [facility] POINT OF CARE GLUCOSEon 05-16 Glucose [Mass/Vol] 219 mg/dL Critically high 74-106 [facility] Comment on above: Performed By: #### P OCGLUC #### [facility] [address] [place] [address] José Luis Beard Glucose [Mass/Vol] 134 mg/dL Critically high 74-106 [facility] Comment on above: Performed By: #### P OCGLUC #### [facility] [address] [address] [address] Freda Wayne Glucose [Mass/Vol] 196 mg/dL Critically high 74-106 [facility] Comment on above: Performed By: #### P OCGLUC #### [facility] [address] [address] José Luis Beard PROF 14(COMP METB)on 021 Albumin [Mass/Vol] 2.8 g/dL Critically low 3.5-5.0 [facility] Comment on above: Performed By: #### C MP #### [facility] [address] [place] [address] Dr. Freda Wayne Albumin/Globulin [Mass ratio] 0.8 {ratio} Normal [facility] Comment on above: Performed By: #### C MP #### [facility] [address] [place] [address] Dr. Freda Wayne ALP [Catalytic activity/Vol] 131 U/L Critically high 38-126 [facility] Comment on above: Performed By: #### C MP #### [facility] [address] [place] [address] Dr. Freda Wayne ALT [Catalytic activity/Vol] 153 U/L Critically high 21-72 [facility] Comment on above: Performed By: #### C MP #### [facility] [address] [place] [address] Dr. Freda Wayne Anion gap [Moles/Vol] 12.6 mmol/L Normal [facility] Comment on above: Performed By: #### C MP #### [facility] [address] [place] [address] Dr. Freda Wayne AST [Catalytic activity/Vol] 79 U/L Critically high 17-59 [facility] Comment on above: Performed By: #### C MP #### [facility] [address] [place] [address] Dr. Freda Wayne Bilirubin [Mass/Vol] 0.7 mg/dL Normal 0.2-1.3 [facility] Comment on above: Performed By: #### C MP #### [facility] [address] [place] [address] Dr. Freda Wayne Calcium [Mass/Vol] 8.6 mg/dL Normal 8.4-10.2 [facility] Comment on above: Performed By: #### C MP #### [facility] [address] [place] [address] Dr. Frdea Wayne Chloride [Moles/Vol] 104 mmol/L Normal 98-107 [facility] Comment on above: Performed By: #### C MP #### [facility] [address] [place] [address] Dr. Freda Wayne CO2 [Moles/Vol] 25.2 mmol/L Normal 22.0-30.0 [facility] Comment on above: Performed By: #### C MP #### [facility] [address] [address] [address] Freda Wayne Creatinine [Mass/Vol] 1.30 mg/dL Critically high 0.66-1.25 [facility] Comment on above: Performed By: #### C MP #### [facility] [address] [address] Dr. Freda Wayne EGFR-AF GABONESE >60 Normal >=60 [facility] Comment on above: Performed By: #### C MP #### [facility] [address] [address] [address] Freda Wayne EGFR-NON AF GABONESE 54 mL/min/1.73m2 Critically low >=60 [facility] Comment on above: Performed By: #### C MP #### [facility] [address] [address] [address] Freda Wayne Globulin (S) [Mass/Vol] 3.3 g/dL Normal [facility] Comment on above: Performed By: #### C MP #### [facility] [address] [address] [address] Freda Wayne Glucose [Mass/Vol] 141 mg/dL Critically high 74-106 [facility] Comment on above: Performed By: #### C MP #### [facility] [address] [address] [address] Freda Wayne Potassium [Moles/Vol] 3.8 mmol/L Normal 3.4-5.0 [facility] Comment on above: Performed By: #### C MP #### [facility] [address] [address] [address] Freda Wayne Protein [Mass/Vol] 6.1 g/dL Normal 6.1-8.2 [facility] Comment on above: Performed By: #### C MP #### [facility] [address] [address] [address] Freda Wayne Sodium [Moles/Vol] 138 mmol/L Normal 137-145 [facility] Comment on above: Performed By: #### C MP #### [facility] [address] [place] [address] Dr. Freda Wayne Urea nitrogen [Mass/Vol] 13.0 mg/dL Normal 9.0-20.0 [facility] Comment on above: Performed By: #### C MP #### [facility] [address] [place] [address] Dr. Freda Wayne Urea nitrogen/Creatinine [Mass ratio] 10.0 mg/mg Normal [facility] Comment on above: Performed By: #### C MP #### [facility] [address] [place] [address] Dr. Freda Wayne BLOOD CULTURE ID PANELon A. baumannii Not detected [facility] Comment on above: Performed By: #### B TIAGO #### [facility] [address] [place] [address] Dr. Freda TATED CONTROLS PASSED [facility] Comment on above: Performed By: #### B TIAGO #### [facility] [address] [place] [address] Dr. Freda TATEDBTHD BLOOD CULTURE BOTTLE INFORMATION [facility] Comment on above: Performed By: #### B TIAGO #### [facility] [address] [place] [address] Dr. Freda Wayne BCIDHD1 ANTIMICROBIAL RESIST ANCE GENES [facility] Comment on above: Performed By: #### B TIAGO #### [facility] [address] [place] [address] Dr. Freda Wayne BCIDHD2 SEE BELOW [facility] Comment on above: Result Comment: KPC- carbapenem resistance gene, mecA- methecillin resistance gene, van A/B- vancomycin resistance gene Note: Antimicrobial resitance can occur via multiple mechanisms. A Not Detected result for the [employer] antomicrobial resistance gene assays does not indicate antimicrobial susceptibility. Subculturing is required for specis identificationand susceptibility testing of isolates. Performed By: #### B TIAGO #### [facility] [address] [place] [address] Dr. Freda Wayne BCIDHD3 Positive Normal [facility] Comment on above: Performed By: #### B TIAGO #### [facility] [address] [place] [address] Dr. Freda Wayne BCIDHD4 Negative [facility] Comment on above: Performed By: #### B TIAGO #### [facility] [address] [place] [address] Dr. Freda Wayne BCIDHD5 YEAST Normal [facility] Comment on above: Performed By: #### B TIAGO #### [facility] [address] [place] [address] Dr. Freda Wayne BCIDHD6 SEE BELOW [facility] Comment on above: Result Comment: Note : All genus and species BCID [employer] results will be verified post subculturing via Maldi-Tof MS testing methodology. Performed By: #### B TIAGO #### [facility] [address] [place] [address] Dr. Freda Wayne Bottle Set: Set 1 [facility] Comment on above: Performed By: #### B TIAGO #### [facility] [address] [place] [address] Dr. Freda Wayne Bottle: Aerobic [facility] Comment on above: Performed By: #### B TIAGO #### [facility] [address] [place] [address] Dr. Freda Wayne Yarely albicans Not detected [facility] Comment on above: Performed By: #### B TIAGO #### [facility] [address] [place] [address] Dr. Freda Wayne Yarely glabrata Not detected Normal [facility] Comment on above: Performed By: #### B TIAGO #### [facility] [address] [place] [address] Dr. Freda Wayne Yarely Krusei Not detected Normal [facility] Comment on above: Performed By: #### B TIAGO #### [facility] [address] [place] [address] Dr. Freda Wayne Yarely Parapsilosis Not detected Normal [facility] Comment on above: Performed By: #### B TIAGO #### [facility] [address] [place] [address] Dr. Freda Wayne Yarely Tropicalis Not detected Normal [facility] Comment on above: Performed By: #### B TIAGO #### [facility] [address] [place] [address] Dr. Freda Wayne E. Cloacae complex Not detected Normal [facility] Comment on above: Performed By: #### B TIAGO #### [facility] [address] [place] [address] Dr. Freda Wayne Enterobacteriaceae Detected Critically abnormal [facility] Comment on above: Performed By: #### B TIAGO #### [facility] [address] [place] [address] Dr. Freda Wayne Enterococcus Not detected Normal [facility] Comment on above: Performed By: #### B TIAGO #### [facility] [address] [place] [address] Dr. Freda Wayne Escheria coli Not detected Normal [facility] Comment on above: Performed By: #### B TIAGO #### [facility] [address] [place] [address] Dr. Freda Wayne K. oxytoca Not detected Normal [facility] Comment on above: Performed By: #### B TIAGO #### [facility] [address] [place] [address] Dr. Freda Wayne K. pneumoniae Detected Critically abnormal [facility] Comment on above: Performed By: #### B TIAGO #### [facility] [address] [place] [address] Dr. Freda Wayne KPC Resistant Gene Not detected Normal [facility] Comment on above: Performed By: #### B TIAGO #### [facility] [address] [place] [address] Dr. Freda Wayne List. monocytogenes Not detected Normal [facility] Comment on above: Performed By: #### B TIAGO #### [facility] [address] [place] [address] Dr. Freda Wayne mecA Resistant Gene Not Applicable Normal [facility] Comment on above: Performed By: #### B TIAGO #### [facility] [address] [place] [address] Dr. Freda Wayne Proteus Not detected Normal [facility] Comment on above: Performed By: #### B TIAGO #### [facility] [address] [place] [address] Dr. Freda Wayne Pseud. aeruginosa Not detected Normal [facility] Comment on above: Performed By: #### B TIAGO #### [facility] [address] [place] [address] Dr. Freda Wayne Seratia marcescens Not detected Normal [facility] Comment on above: Performed By: #### B TIAGO #### [facility] [address] [place] [address] Dr. Freda Wayne Site: left AC Normal [facility] Comment on above: Performed By: #### B TIAGO #### [facility] [address] [place] [address] Dr. Freda Wayne Staph. aureus Not detected Normal [facility] Comment on above: Performed By: #### B TIAGO #### [facility] [address] [place] [address] Dr. Freda Wayne Staphylococcus Not detected Normal [facility] Comment on above: Performed By: #### B TIAGO #### [facility] [address] [place] [address] Dr. Freda Wayne Strep. agalactiae Not detected Normal [facility] Comment on above: Performed By: #### B TIAGO #### [facility] [address] [place] [address] Dr. Freda Wayne Strep. pneumoniae Not detected Normal [facility] Comment on above: Performed By: #### B TIAGO #### [facility] [address] [place] [address] Dr. Freda Wayne Strep. pyogenes Not detected Normal [facility] Comment on above: Performed By: #### B TIAGO #### [facility] [address] [place] [address] Dr. Freda Wayne Streptococcus Not detected Normal [facility] Comment on above: Performed By: #### B TIAGO #### [facility] [address] [place] [address] Dr. Freda Wayne Genevieve/B Resist. Gene Not Applicable Normal [facility] Comment on above: Performed By: #### B TIAGO #### [facility] [address] [place] [address] Dr. Freda Wayne CBC W MANUAL DIFFon 06-03-20 ATYPICAL LYMPH # Normal [facility] Comment on above: Performed By: #### P OCGLUC #### [facility] [address] [place] [address] José Luis Kisha ATYPICAL LYMPH % Normal [facility] Comment on above: Performed By: #### P OCGLUC #### [facility] [address] [place] [address] José Luis Kisha BAND # Normal 0.0-0.3 [facility] Comment on above: Performed By: #### P OCGLUC #### [facility] [address] [place] [address] José Luis Kisha BAND % Normal 0-5 [facility] Comment on above: Performed By: #### P OCGLUC #### [facility] [address] [place] [address] José Luis Kisha BASOM # 0.00 103/ul Normal 0.00-0.10 [facility] Comment on above: Performed By: #### P OCGLUC #### [facility] [address] [place] [address] José Luis Kisha BASOM % 0.0 % Critically low 0.2-2.0 [facility] Comment on above: Performed By: #### P OCGLUC #### [facility] [address] [place] [address] José Luis Kisha BLAST # Normal [facility] Comment on above: Performed By: #### P OCGLUC #### [facility] [address] [place] [address] José Luis Kisha BLAST % Normal [facility] Comment on above: Performed By: #### P OCGLUC #### [facility] [address] [place] [address] José Luis Kisha CORRECTED WBC Normal 4.0-11.0 [facility] Comment on above: Performed By: #### P OCGLUC #### [facility] [address] [address] José Luis Beard EOS # 0.00 103/ul Normal 0.00-0.70 [facility] Comment on above: Performed By: #### P OCGLUC #### [facility] [address] [place] [address] José Luis Beard EOS% 0.0 % Critically low 0.9-7.0 [facility] Comment on above: Performed By: #### P OCGLUC #### [facility] [address] [place] [address] Jsoé Luis Beard HCT 41.0 % Critically low 42.0-54.0 [facility] Comment on above: Performed By: #### P OCGLUC #### [facility] [address] [place] [address] José Luis Beard HGB 13.0 g/dl Critically low 14.0-18.0 [facility] Comment on above: Performed By: #### P OCGLUC #### [facility] [address] [place] [address] José Luis Beard LYMPHM # 0.18 103/ul Critically low 1.20-3.80 [facility] Comment on above: Performed By: #### P OCGLUC #### [facility] [address] [place] [address] José Luis Beard LYMPHM% 1.0 % Critically low 20.5-60.0 [facility] Comment on above: Performed By: #### P OCGLUC #### [facility] [address] [place] [address] José Luis Beard MCH 28.6 pg Normal 25.9-34.0 [facility] Comment on above: Performed By: #### P OCGLUC #### [facility] [address] [place] [address] José Luis Beard MCHC 31.7 g/dl Normal 29.9-35.2 [facility] Comment on above: Performed By: #### P OCGLUC #### [facility] [address] [place] [address] José Luis Beard MCV 90.1 fL Normal 80.0-94.0 [facility] Comment on above: Performed By: #### P OCGLUC #### [facility] [address] [place] [address] José Luis Kisha METAMYELOCYTE # Normal [facility] Comment on above: Performed By: #### P OCGLUC #### [facility] [address] [place] [address] José Luis Kisha METAMYELOCYTE % Normal [facility] Comment on above: Performed By: #### P OCGLUC #### [facility] [address] [place] [address] José Luis Kisha MONOM# 0.55 103/ul Normal 0.30-0.80 [facility] Comment on above: Performed By: #### P OCGLUC #### [facility] [address] [place] [address] José Luis Kisha MONOM% 3.0 % Normal 1.7-12.0 [facility] Comment on above: Performed By: #### P OCGLUC #### [facility] [address] [place] [address] José Luis Kisha MPV 10.1 fL Normal 9.5-13.5 [facility] Comment on above: Performed By: #### P OCGLUC #### [facility] [address] [place] [address] José Luis Kisha MYELOCYTE # Normal [facility] Comment on above: Performed By: #### P OCGLUC #### [facility] [address] [place] [address] José Luis Kisha MYELOCYTE % Normal [facility] Comment on above: Performed By: #### P OCGLUC #### [facility] [address] [place] [address] José Luis Kisha NRBC Normal [facility] Comment on above: Performed By: #### P OCGLUC #### [facility] [address] [place] [address] José Luis Kisha PLT 374 103/ul Normal 150-450 [facility] Comment on above: Performed By: #### P OCGLUC #### [facility] [address] [place] [address] José Luis Kisha RBC 4.55 106/ul Critically low 4.70-6.10 [facility] Comment on above: Performed By: #### P OCGLUC #### [facility] [address] [address] José Luis Beard RDW 15.6 % Critically high 11.0-15.0 [facility] Comment on above: Performed By: #### P OCGLUC #### [facility] [address] [address] José Luis Beard SEG # 17.57 103/ul Critically high 1.40-6.50 [facility] Comment on above: Performed By: #### P OCGLUC #### [facility] [address] [place] [address] José Luis Beard SEG % 96.0 % Critically high 43.0-75.0 [facility] Comment on above: Performed By: #### P OCGLUC #### [facility] [address] [place] [address] José Luis Beard WBC 18.3 103/ul Critically high 4.0-11.0 [facility] Comment on above: Performed By: #### P OCGLUC #### [facility] [address] [place] [address] ABD/PELV W CONon [...] CINDI SOMMER Date: 2021-06-03 14:15 Normal [facility] CULTURE BLOODon 06-03-2021 Microscopic examination of blood, culture Culture Observations: NO GROWTH AT 5 DAYS. Normal [facility] Comment on above: Performed By: #### B LDCX2 #### [facility] [address] [place] [address] Dr. Freda Wayne [facility]16 SARS-CoV-2 (COVID-19) RNA SHRUTI+probe Ql (Unsp spec) Not detected Normal NOT DETECTED [facility] Comment on above: Result Comment: When diagnostic testing is negative, the possibility of a false negative should be considered in the context of a patient's recent exposures and the presence of clinical signs and symptoms consistent with SARS-CoV-2. This test is not yet approved or cleared by the [place] Food and Drug Administration (FDA). This test was developed by [employer], [place], [place]. The performance characteristics of this test were validated by [facility]. The results are not intended to be used as the sole means for clinical diagnosis or patient management decisions. [facility] is authorized under Clinical Laboratory Improvement [...] for this test is supported by the [employer] of Health and Human Service's declaration that [...] used). Performed By: #### C BCMAN #### [facility] [address] [place] [address] Dr. Freda Wayne ER URINE PROFILEon 1 Bilirubin Ql (U) Negative Normal NEGATIVE [facility] Comment on above: Performed By: #### P OCGLUC #### [facility] [address] [place] [address] José Luis Kisha Clarity (U) CLEAR Normal CLEAR [facility] Comment on above: Performed By: #### P OCGLUC #### [facility] [address] [place] [address] José Luis Kisha Color (U) YELLOW Normal YELLOW [facility] Comment on above: Performed By: #### P OCGLUC #### [facility] [address] [place] [address] José Luis Kisha ERUAHD A micrscopic examina tion will be performed if indicated. Normal [facility] Comment on above: Performed By: #### P OCGLUC #### [facility] [address] [place] [address] José Luis Kisha Glucose Ql (U) 100 mg/dl Abnormal NEGATIVE [facility] Comment on above: Performed By: #### P OCGLUC #### [facility] [address] [place] [address] José Luis Kisha Hemoglobin Ql (U) Negative Normal NEGATIVE [facility] Comment on above: Performed By: #### P OCGLUC #### [facility] [address] [place] [address] José Luis Kisha Ketones Ql (U) Negative Normal NEGATIVE [facility] Comment on above: Performed By: #### P OCGLUC #### [facility] [address] [place] [address] José Luis Kisha LEUKOCYTES Negative Normal NEGATIVE [facility] Comment on above: Performed By: #### P OCGLUC #### [facility] [address] [place] [address] José Luis Beard Nitrite Ql (U) Negative Normal NEGATIVE [facility] Comment on above: Performed By: #### P OCGLUC #### [facility] [address] [place] [address] José Luis Beard pH (U) 6.0 [pH] Normal 5-9 [facility] Comment on above: Performed By: #### P OCGLUC #### [facility] [address] [place] [address] José Luis Beard Protein (U) [Mass/Vol] 30 mg/dL Abnormal NEGAT CYNTHIA/ TRACE [facility] Comment on above: Performed By: #### P OCGLUC #### [facility] [address] [place] [address] José Luis Beard SPEC GRAVITY 1.020 Normal 1.005-<=1. 025 [facility] Comment on above: Performed By: #### P OCGLUC #### [facility] [address] [place] [address] José Luis Beard UR MICRO IND INDICATED Normal [facility] Comment on above: Performed By: #### P OCGLUC #### [facility] [address] [place] [address] José Luis Beard Urobilinogen Qn (U) 1.0 {Bassem'U}/dL Normal 0.2 - 1. 0 [facility] Comment on above: Performed By: #### P OCGLUC #### [facility] [address] [place] [address] José Luis Beard LACTATE/LACTIC ACIDon 2020 Lactate [Moles/Vol] 2.0 mmol/L Normal 0.7-2.0 [facility] Comment on above: Performed By: #### P OCGLUC #### [facility] [address] [place] [address] Dr. Freda Wayne LIPASEon 06-03-2021 Lipase [Catalytic activity/Vol] 207.0 U/L Normal 23.0-300.0 [facility] Comment on above: Performed By: #### P OCGLUC #### [facility] [address] [address] [address] Freda Wayne POINT OF CARE GLUCOSEon 05-16 Glucose [Mass/Vol] 107 mg/dL Critically high 74-106 [facility] Comment on above: Performed By: #### P OCGLUC #### [facility] [address] [address] José Luis Beard PROF 14(COMP METB)on 021 Albumin [Mass/Vol] 3.9 g/dL Normal 3.5-5.0 [facility] Comment on above: Performed By: #### P OCGLUC #### [facility] [address] [address] [address] Freda Wayne Albumin/Globulin [Mass ratio] 1.1 {ratio} Normal [facility] Comment on above: Performed By: #### P OCGLUC #### [facility] [address] [address] [address] Freda Wayne ALP [Catalytic activity/Vol] 181 U/L Critically high 38-126 [facility] Comment on above: Performed By: #### P OCGLUC #### [facility] [address] [address] [address] Freda Wayne ALT [Catalytic activity/Vol] 196 U/L Critically high 21-72 [facility] Comment on above: Performed By: #### P OCGLUC #### [facility] [address] [address] [address] Freda Wayne Anion gap [Moles/Vol] 15.4 mmol/L Normal [facility] Comment on above: Performed By: #### P OCGLUC #### [facility] [address] [address] [address] Freda Wayne AST [Catalytic activity/Vol] 217 U/L Critically high 17-59 [facility] Comment on above: Performed By: #### P OCGLUC #### [facility] [address] [address] [address] Freda Wayne Bilirubin [Mass/Vol] 1.1 mg/dL Normal 0.2-1.3 [facility] Comment on above: Performed By: #### P OCGLUC #### [facility] [address] [address] [address] Freda Wayne Calcium [Mass/Vol] 9.7 mg/dL Normal 8.4-10.2 [facility] Comment on above: Performed By: #### P OCGLUC #### [facility] [address] [address] [address] Freda Wayne Chloride [Moles/Vol] 101 mmol/L Normal 98-107 [facility] Comment on above: Performed By: #### P OCGLUC #### [facility] [address] [address] [address] Freda Wayne CO2 [Moles/Vol] 24.4 mmol/L Normal 22.0-30.0 [facility] Comment on above: Performed By: #### P OCGLUC #### [facility] [facility] [address] [address] [address] Freda Wayne Creatinine [Mass/Vol] 1.16 mg/dL Normal 0.66-1.25 [facility] Comment on above: Performed By: #### P OCGLUC #### [facility] [address] [address] [address] Freda Wayne EGFR-AF GABONESE >60 Normal >=60 [facility] Comment on above: Performed By: #### P OCGLUC #### [facility] [address] [address] [address] Freda Wayne EGFR-NON AF GABONESE >60 Normal >=60 [facility] Comment on above: Performed By: #### P OCGLUC #### [facility] [address] [address] [address] Freda Wayne Globulin (S) [Mass/Vol] 3.6 g/dL Normal [facility] Comment on above: Performed By: #### P OCGLUC #### [facility] [address] [address] [address] Freda Wayne Glucose [Mass/Vol] 213 mg/dL Critically high 74-106 [facility] Comment on above: Performed By: #### P OCGLUC #### [facility] [address] [address] [address] Freda Wayne Potassium [Moles/Vol] 3.8 mmol/L Normal 3.4-5.0 [facility] Comment on above: Performed By: #### P OCGLUC #### [facility] [address] [address] [address] Freda Wayne Protein [Mass/Vol] 7.5 g/dL Normal 6.1-8.2 [facility] Comment on above: Performed By: #### P OCGLUC #### [facility] [address] [address] [address] Freda Wayne Sodium [Moles/Vol] 137 mmol/L Normal 137-145 [facility] Comment on above: Performed By: #### P OCGLUC #### [facility] [address] [place] [address] Dr. Freda Wayne Urea nitrogen [Mass/Vol] 16.0 mg/dL Normal 9.0-20.0 [facility] Comment on above: Performed By: #### P OCGLUC #### [facility] [address] [address] [address] Freda Wayne Urea nitrogen/Creatinine [Mass ratio] 13.8 mg/mg Normal [facility] Comment on above: Performed By: #### P OCGLUC #### [facility] [address] [place] [address] Dr. Freda Wayne PROTIMEon 06-03-2021 INR Coag (PPP) [Relative time] 1.05 {INR} Normal [facility] Comment on above: Performed By: #### P T, PTT #### [facility] [address] [place] [address] Dr. Freda Wayne INR GUIDELINES SEE BELOW Normal [facility] Comment on above: Result Comment: KAYLA RED INR: 2.0 - 3.0 CONDITIONS NOT LISTED BELOW 2.5 - 3.5 FOR PROSTHETIC HEART VALVE REPLACEMENT 2.5 - 3.5 RECURRENT THROMBOSIS Performed By: #### P T, PTT #### [facility] [address] [place] [address] Dr. Freda Wayne PT Coag (PPP) [Time] 11.3 s Normal 9.0-11.6 [facility] Comment on above: Performed By: #### P T, PTT #### [facility] [address] [place] [address] Dr. Freda Wayne PTTon 06-03-2021 aPTT Coag (Bld) [Time] 28.2 s Normal 22.3-36.2 Th e [facility] Comment on above: Performed By: #### P T, PTT #### [facility] [address] [place] [address] Dr. Freda Wayne TROPONIN, HIGH SENSITIVITYon 06-03-2021 HSTROP 10.8 pg/mL Normal 4.0-42.2 [facility] Comment on above: Result Comment: CUT- OFF POINTS HAVE BEEN ESTABLISHED BASED ON THE FOURTH UNIVERSAL DEFINITIONS OF MYOCARDIAL INFARCTION. THE UPPER REFERENCE LIMIT (URL) OF TROPONIN, DEFINED THE 99TH PERCENTILE OF cTnI DISTRIBUTION IN A REFERENCE POPULATION, HAS BEEN CONFIRMED THE DECISION THRESHOLD FOR [place] DIAGNOSIS. Performed By: #### P OCGLUC #### [facility] [address] [place] [address] Dr. Freda Wayne URINE MICROSCOPIC ONLYon BACTERIA NONE SEEN Normal NONE SEEN [facility] Comment on above: Performed By: #### P OCGLUC #### [facility] [address] [place] [address] José Luis Kisha Bacteria identified Cx Nom (U) NOT INDICATED Normal [facility] Comment on above: Performed By: #### P OCGLUC #### [facility] [address] [place] [address] José Luis Kisha CAST NONE SEEN Normal NONE SEEN [facility] Comment on above: Performed By: #### P OCGLUC #### [facility] [address] [place] [address] José Luis Kisha Crystals LM Nom (Urine sed) NONE SEEN Normal NONE SEEN [facility] Comment on above: Performed By: #### P OCGLUC #### [facility] [address] [place] [address] José Luis Kisha Epithelial cells LM Ql (Urine sed) RARE Normal NONE SEEN /RARE [facility] Comment on above: Performed By: #### P OCGLUC #### [facility] [address] [place], [place] [address] José Luis Beard MUCOUS TRACE Abnormal NONE SEEN [facility] Comment on above: Performed By: #### P OCGLUC #### [facility] [address] [place], [place] [address] José Luis Beard RBC 0-2 Normal 0-2 [facility] Comment on above: Performed By: #### P OCGLUC #### [facility] [address] [place], [place] [address] José Luis Beard WBC 0-2 Abnormal NONE SEEN [facility] Comment on above: Performed By: #### P OCGLUC #### [facility] [address] [place], [place] [address] José Luis Beard US SINGLE QUAD RT [...] CINDI SOMMER Date: 2021-06-03 09:27 Normal [facility] XR CHEST 1 Von 06-03-2021 XR [...] CINDI SOMMER Date: 2021-06-03 09:56 Normal [facility] Note - Heme Onc Sched nahid 05-22-2021 Clinic Note - Heme Onc Scheduling Retrieve Patient Instructions: Patient Instructions: Patient Instructions: RetrievePatient Instructions COMMUNICATION ORDERS NOTES: Communication Orders NotesPer scheduling note on appointment wifes patient wants apt on 08/26 End of Visit Documentation: Clinic Location/Phone Number: Clinic Location/Phone Number: [address] [address] End Of Visit MU Report Item: Visit Summary given or mailed to patientyes Mailed Appointments Electronic Signatures: Candice Shirley (PT ACCT REP) (Signed 22-May-2021 10:02) Authored: Retrieve Patient Instructions, COMMUNICATION ORDERS NOTES, End of Visit Documentation Last Updated: 22-May-2021 10:02 by Candice Shirley (PT ACCT REP) Normal [facility] Note - Heme Onc-Follo w Up Visiton 05-20-2021 Clinic Note - Heme Onc-Follow Up Visit Patient Visit Information: Visit Type: Follow Up Visit History of Present Illness: ID Statement: YUSEF CAR is a 71 year old Male Chief Complaint: Duodenal neuroendocrine tumor Interval History: 70 years old gentleman from [place], [place] who has been referred to me from [facility]. The patient complained of acid reflux for [...] 6. No (more content not included)... Normal [facility] Note - Intakeon 05-20 Clinic Note [...] 3 Weights & HeightsDate: Weight/Scale Type:Height: 04-Feb-2021 09:40125 kg / standing offnm080.8 cm 07-Jan-2021 13:13717 kg / standing pkcei766.8 cm 19-Dec-2020 13:31941 kg / standing ocnaa994.8 cm SpO2 (%)98 % SpO2 Patient Onroom [...] Updated: 20-May-2021 12:55 by Edith Ruvalcaba) Normal [facility] - Chemistry and C hemistry - challengeon 05-01-2021 Glucose [Mass/Vol] 132 mg/dL above high threshold 74 - 99 [facility] [address] [address] DO Work Phone: No Panel Informationon 05-01 [facility] [place] [address] DO Work Phone: [email or web address]?={[email or web address] [id number]} [facility] [place] [address] DO Work Phone: [facility] [place] [address] DO Work Phone: Coronavirus 2019 RNA by PCR, Screening Asymptomticon 04-29-2021 Coronavirus 2019 RNA by PCR, Screening Asymptomtic Not detected Normal See Below [facility] stlay[facility]air[facility] [address] DO Work Phone: Comment on [...] make patient management decisions.Fact sheet for providers: https://www.fda.gov/media/637679/downloadFact sheet for patients: https://www.fda.gov/media/652395/downloadThis test has received FDA Emergency Use Authorization (EUA) and has been verified by [facility] ([facility]). This test is only authorized for the duration of time that circumstances exist to justify the authorization of the emergency use of in vitro diagnostic tests for the detection of SARS-CoV-2 virus and/or diagnosis of COVID-19 infection under section 564(b)(1) of the Act, 21 U.S.C. 360bbb-3(b)(1), unless the authorization is terminated or revoked sooner. [facility] is certified under CLIA-88 as qualified to perform high complexity testing. Testing is performed in the [facility] laboratories located at [address] [place] [address]. Provider Communicationon Provider Communication Dear Dr. Steele, [...] should questions arise Sincerely, Irwin Cespedes MD, [facility] Clinical Glaze Maker [facility] Gastroenterology [facility] Medicine [id number] [place] [address] Patient Care Team Care Team MemberRoleSpecialtyOffice Number Cedric HERNANDEZ, [facility] Care Provider[phone] Active Problems Problems BPH with obstruction/lower urinary [...] Feb 05 2021 2:42PM EST (Author) Normal [facility] - Chemistry and C hemistry - challengeon 01-23-2021 Glucose [Mass/Vol] 106 mg/dL above high threshold 74 - 99 [facility] [place] [facility] [address] DO Work Phone: No Panel Informationon 01-23 [facility] [place] [address] DO Work Phone: [email or web address]?={F [id number]} [facility] [place] [address] DO Work Phone: [facility] [address] [address] DO Work Phone: Complete Blood Count + Diffe rentialon 01-11-2021 Basophils/100 WBC (Bld) 0.4 % 0.0 - 2.0 U [facility] Work Phone: Erythrocyte distribution width (RBC) [Ratio] 15.6 % above high threshold See Below [facility] Work Phone: Comment on above: Reference Range: 11. 5 - 14.5 Hematocrit (Bld) [Volume fraction] 40.9 % below low threshold See Below [facility] Work Phone: Comment on above: Reference Range: 41. 0 - 52.0 Hemoglobin (Bld) [Mass/Vol] 12.9 g/dL below low threshold See Below [facility] Work Phone: Comment on above: Reference Range: 13. 5 - 17.5 Lymphocytes/100 WBC (Bld) 16.1 % See Below [facility] Work Phone: Comment on above: Reference Range: 13. 0 - 44.0 MCHC (RBC) [Mass/Vol] 31.5 g/dL below low threshold See Below [facility] Work Phone: Comment on above: Reference Range: 32. 0 - 36.0 MCV (RBC) [Entitic vol] 92 fL 80 - 100 U [facility] Work Phone: [phone] Monocytes/100 WBC (Bld) 7.4 % 2.0 - 10.0 U [facility] Work Phone: [phone] Neutrophils/100 WBC (Bld) 73.8 % See Below [facility] Work Phone: [phone] Comment on above: Reference Range: 40. 0 - 80.0 Platelets (Bld) [#/Vol] 360 10*3/uL 150 - 450 [facility] Work Phone: [phone] RBC (Bld) [#/Vol] 4.45 {x10E12/L} below low threshold See Below [facility] Work Phone: [phone] Comment on above: Reference Range: 4.5 0 - 5.90 WBC (Bld) [#/Vol] 7.7 10*3/uL 4.4 - 11.[address] [facility] Work Phone: [phone] Complete Blood Count + Differential 0.03 {x10E9/L} See Below [facility] Work Phone: Comment on above: Reference Range: 0.0 0 - 0.10 Complete Blood Count + Differential 0.15 {x10E9/L} See Below [facility] Work Phone: Comment on above: Reference Range: 0.0 0 - 0.40 Complete Blood Count + Differential 0.57 {x10E9/L} See Below [facility] Work Phone: Comment on above: Reference Range: 0.0 5 - 0.80 Complete Blood Count + Differential 1.24 {x10E9/L} See Below [facility] Work Phone: Comment on above: Reference Range: 0.8 0 - 3.00 Complete Blood Count + Differential 5.68 {x10E9/L} above high threshold See Below [facility] Work Phone: Comment on above: Reference Range: 1.6 0 - 5.50 Complete Blood Count + Differential 2.0 % 0.0 - 6.0 [facility] Work Phone: Complete Blood Count + Differential 0.3 % 0.0 - 0.9 [facility] Work Phone: Comment on above: Immature Granulocyte Count (IG) includes promyelocytes, myelocytes and metamyelocytes but does not include bands. Percent differential counts (%) should be interpreted in the context of the absolute cell counts (cells/L). Laboratory - Chemistry and C hemistry - challengeon 01-11-2021 Albumin BCP dye [Mass/Vol] 4.1 g/dL 3.4 - 5.0 [facility] Work Phone: ALP [Catalytic activity/Vol] 82 U/L 33 - 136 [facility] Work Phone: ALT With P-5'-P [Catalytic activity/Vol] 12 U/L 10 - 52 [facility] Work Phone: Comment on above: Patients treated wit h Sulfasalazine may generate falsely decreased results for ALT. Anion gap [Moles/Vol] 12 mmol/L 10 - 20 [facility] Work Phone: AST With P-5'-P [Catalytic activity/Vol] 12 U/L 9 - 39 [facility] Work Phone: Bilirubin [Mass/Vol] 0.5 mg/dL 0.0 - 1.2 [facility] Work Phone: Calcium [Mass/Vol] 9.8 mg/dL 8.6 - 10.[address] [facility] Work Phone: Chloride [Moles/Vol] 103 mmol/L 98 - 107 [facility] Work Phone: CO2 [Moles/Vol] 30 mmol/L 21 - 32 [facility] Work Phone: Creatinine [Mass/Vol] 1.20 mg/dL See Below [facility] Work Phone: Comment on above: Reference Range: 0.5 0 - 1.30 Glucose [Mass/Vol] 147 mg/dL above high threshold 74 - 99 [facility] Work Phone: Potassium [Moles/Vol] 4.5 mmol/L 3.5 - 5.3 [facility] Work Phone: Protein [Mass/Vol] 7.0 g/dL 6.4 - 8.[address] [facility] Work Phone: Sodium [Moles/Vol] 140 mmol/L 136 - [address] [facility] Work Phone: Urea nitrogen [Mass/Vol] 19 mg/dL 6 - 23 [facility] Work Phone: MRI Liver w/wo Contraston MR Liver WO and W contrast IV Normal [facility] Work Phone: No Panel Informationon 01-11 73 {mL/min/1.73m2} >[address] [facility] Work Phone: Comment on above: CALCULATIONS OF LACEY MATED GFR ARE PERFORMED USING THE MDRD STUDY EQUATION FOR THE IDMS-TRACEABLE CREATININE METHODS. CLIN CHEM 2007;53:766-72 60 {mL/min/1.73m2} Abnormal >[address] [facility] Work Phone: Prostate Specific Antigenon 01-11-2021 Prostate specific Ag [Mass/Vol] 0.29 ng/mL See Below [facility] Work Phone: Comment on above: Reference Range: 0.0 0 - 4.00The FDA requires that the method used for PSA assay be reported to the physician. Values obtained with different assay methods must not be used interchangeably. This test was performed at [facility] using the INRIX PSA method, which is a sandwich immunoassay using chemiluminescence for quantitation. The assay is approvedfor measurement of prostate-specific antigen (PSA) in serum and may be used in conjunction with a digital rectalexamination in men 50 years and older as an aid in detection of prostate cancer. 6-Bnubp-vestyelcj inhibitors (e.g. Proscar, Finasteride, Avodart, Dutasteride and [...] visit. 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 He underwent EGD on 11/28/2020 at the [facility] in [facility] for a longstanding history of gastroesophageal [...] Calcium 10 MG Oral Tablet Results/Data Gastrin, [id number] 08:49AMNon Ambulatory, Provider Ordering Provider: NEFTALI KNOWLES [id number] Test NameResultFlagReference Gastrin, Serum21 pg/mL0-100 Performed By: [employer] [address] [place] [address] Taxicab Coordinator: Katharine Vergara MD CT Abdomen and Pelvis with IV [id number] 05[facility] Ordering Provider: NEFTALI KNOWLES [id number] Abdomen and Pelvis with Contrast(Report) FINAL REPORT Interpreted by: LUL CARVER H, MD and SWATI GARCIA MD - RAD RESIDENT 12/26/20 21:29 Patient Name: YUSEF CAR STUDY: CT ABDOMEN AND PELVIS W IV CONTRAST; 12/25/2020 5:35 pm INDICATION: net restaging. 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 Images were obtained for staging purposes. COMPARISON: None. ACCESSION NUMBER(S): [id number] ORDERING CLINICIAN: NEFTALI KNOWLES TECHNIQUE: CT of [...] is n (more content not included)... 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,N13.8) Orders SocHx: Non-smoker Tobacco Use Screening; Status:Complete; Done: [id number] Perform:Not Applicable;Ordered; For:SocHx: Non-smoker; Ordered By:Neelima Brock; [...] MG Oral Tablet Vitals Vital Signs Recorded: [id number] 02:15PM Falwgdsdeoz19.5 F Heart Rate76 Yisuzjlj677 Jharvsiaw05 Height5 ft 10 in Rsxoqa377 lb BMI Dhegfpgyjt61.87 kg/m2 BSA Calculated2.27 Tobacco Useb) No Fall [...] Results/Data CT Abdomen and Pelvis with IV [id number] 05:35PMNon Ambulatory, Provider Ordering Provider: NEFTALI KNOWLES [id number] Abdomen and Pelvis with Contrast(Report) FINAL REPORT Interpreted by: LUL CARVER H, MD and SWATI GARCIA MD - RAD RESIDENT 12/26/20 21:29 Patient Name: YUSEF CAR STUDY: CT ABDOMEN AND PELVIS W IV CONTRAST; 12/25/2020 5:35 pm INDICATION: net restaging. 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 Images were obtained for st (more content not included)... Normal [employer] Tobacco Screening.on 021 Fall risk assessment a) No falls within the last year [facility] Work Phone: Tobacco use status [facility]PH[facility] b) No [facility] Work Phone: Complete Blood Count + Diffe rentialon 12-26-2020 Hematocrit (Bld) [Volume fraction] Canceled [facility] Work Phone: Hemoglobin (Bld) [Mass/Vol] Canceled [facility] Work Phone: Platelets (Bld) [#/Vol] Canceled [facility] Work Phone: RBC (Bld) [#/Vol] [facility] Work [facility]: Complete Blood Count + Differential Canceled [facility] Work Phone: Comment on above: Immature [...] 12-26-2020 Gastrin [Mass/Vol] 21 pg/mL 0-100 [facility] Work Phone: [phone] Comment on above: Performed By: MARISSA [address]nandeznsp[address] [address]Acrrmusrlb Director: Katharine Vergara MD Laboratory - Chemistry and C hemistry - challengeon 12-26-2020 Albumin BCP dye [Mass/Vol] [facility] Work [facility]: [phone] ALP [Catalytic activity/Vol] [facility] Work [facility]: [phone] ALT With P-5'-P [Catalytic activity/Vol] Canceled MG-Surg [facility] Work Phone: [phone] Comment on above: Patients treated wit h Sulfasalazine may generate falsely decreased results for ALT. AST With P-5'-P [Catalytic activity/Vol] Canceled MG-Surg [facility] Work Phone: 151 Bilirubin [Mass/Vol] Canceled MG-S [facility] Work Phone: [phone] Calcium [Mass/Vol] Canceled [facility] Work Phone: 151 Chloride [Moles/Vol] Canceled [facility] Work Phone: 151 CO2 [Moles/Vol] Canceled MG-Surger [facility] Work Phone: [phone] Creatinine [Mass/Vol] Canceled [facility] Work [facility]: 151 Glucose [Mass/Vol] Canceled [facility] Work Phone: [phone] Potassium [Moles/Vol] Canceled [facility] Work Phone: [phone] Protein [Mass/Vol] Canceled [facility] Work Phone: 151 Sodium [Moles/Vol] Canceled -[facility] Work Phone: 151 Urea nitrogen [Mass/Vol] Canceled [facility] Work Phone: [phone] Abdomen and Pelvis with I V Contraston 12-25-2020 CT Abdomen and Pelvis W contrast IV Normal [facility] Work Phone: [phone] Complete Blood Count + Diffe rentialon 12-25-2020 Basophils/100 WBC (Bld) 0.2 % 0.0 - 2.0 [facility] Work Phone: [phone] Erythrocyte distribution width (RBC) [Ratio] 15.7 % above high threshold See Below [facility] Work Phone: 151 Comment on above: Reference Range: 11. 5 - 14.5 Hematocrit (Bld) [Volume fraction] 40.2 % below low threshold See Below [facility] Work Phone: 151 Comment on above: Reference Range: 41. 0 - 52.0 Hemoglobin (Bld) [Mass/Vol] 13.0 g/dL below low threshold See Below [facility] Work Phone: [phone] Comment on above: Reference Range: 13. 5 - 17.5 Lymphocytes/100 WBC (Bld) 14.4 % See Below [facility] Work Phone: [phone] Comment on above: Reference Range: 13. 0 - 44.0 MCHC (RBC) [Mass/Vol] 32.3 g/dL See Below [facility] Work Phone: [phone] Comment on above: Reference Range: 32. 0 - 36.0 MCV (RBC) [Entitic vol] 89 fL 80 - 100 [facility] Work Phone: [phone] Monocytes/100 WBC (Bld) 7.5 % 2.0 - 10.0 [facility] Work Phone: [phone] Neutrophils/100 WBC (Bld) 76.9 % See Below [facility] Work Phone: 151 Comment on above: Reference Range: 40. 0 - 80.0 Platelets (Bld) [#/Vol] 401 10*3/uL 150 - 450 [facility] Work Phone: 151 RBC (Bld) [#/Vol] 4.50 {x10E12/L} See Below [facility] Work Phone: 151 Comment on above: Reference Range: 4.5 0 - 5.90 WBC (Bld) [#/Vol] 11.4 10*3/uL above high threshold 4.4 - 11.3 [facility] Work Phone: [phone] Complete Blood Count + Differential 0.02 {x10E9/L} See Below [facility] Work Phone: 151 Comment on above: Reference Range: 0.0 0 - 0.10 Complete Blood Count + Differential 0.08 {x10E9/L} See Below [facility] Work Phone: 151 Comment on above: Reference Range: 0.0 0 - 0.40 Complete Blood Count + Differential 0.86 {x10E9/L} above high threshold See Below [facility] Work Phone: 151 Comment on above: Reference Range: 0.0 5 - 0.80 Complete Blood Count + Differential 1.65 {x10E9/L} See Below [facility] Work Phone: 151 Comment on above: Reference Range: 0.8 0 - 3.00 Complete Blood Count + Differential 8.78 {x10E9/L} above high threshold See Below [facility] Work Phone: 151 Comment on above: Reference Range: 1.6 0 - 5.50 Complete Blood Count + Differential 0.7 % 0.0 - 6.0 [facility] Work Phone: Complete Blood Count + Differential 0.3 % 0.0 - 0.9 [facility] Work Phone: [phone] Comment on above: Immature Granulocyte Count (IG) includes promyelocytes, myelocytes and metamyelocytes but does not include bands. Percent differential counts (%) should be interpreted in the context of the absolute cell counts (cells/L). Gastrin, Serumon 12-25-2020 Gastrin [Mass/Vol] Canceled [facility] Work Phone: [phone] Laboratory - Chemistry and C hemistry - challengeon 12-25-2020 Albumin BCP dye [Mass/Vol] 4.3 g/dL 3.4 - 5.0 [facility] Work Phone: [phone] ALP [Catalytic activity/Vol] 88 U/L 33 - 136 [facility] Work Phone: [phone] ALT With P-5'-P [Catalytic activity/Vol] 11 U/L 10 - 52 MG-Surg [facility] Work Phone: [phone] Comment on above: Patients treated wit h Sulfasalazine may generate falsely decreased results for ALT. Anion gap [Moles/Vol] 15 mmol/L 10 - 20 [facility] Work Phone: [phone] AST With P-5'-P [Catalytic activity/Vol] 12 U/L 9 - 39 MG-Surg [facility] Work Phone: [phone] Bilirubin [Mass/Vol] 0.4 mg/dL 0.0 - 1.2 MG-S [facility] Work Phone: [phone] Calcium [Mass/Vol] 9.8 mg/dL 8.6 - 10.3 MG-Carolynn [facility] Work Phone: [phone] Chloride [Moles/Vol] 104 mmol/L 98 - 107 MG-S [facility] Work Phone: CO2 [Moles/Vol] 23 mmol/L 21 - 32 [facility]: Creatinine [Mass/Vol] 1.15 mg/dL See Below [facility] Work Phone: Comment on above: Reference Range: 0.5 0 - 1.30 Glucose [Mass/Vol] 101 mg/dL above high threshold 74 - 99 [facility] Work Phone: Potassium [Moles/Vol] 4.3 mmol/L 3.5 - 5.3 [facility] Work Phone: Protein [Mass/Vol] 7.5 g/dL 6.4 - 8.2 [facility] Work Phone: Sodium [Moles/Vol] 138 mmol/L 136 - 145 [facility] Work Phone: Urea nitrogen [Mass/Vol] 30 mg/dL above h igh threshold 6 - 23 [facility] Work Phone: No Panel Informationon 12-25 >60 >60 [facility] Work Phone: Comment on above: CALCULATIONS OF LACEY MATED GFR ARE PERFORMED USING THE MDRD STUDY EQUATION FOR THE IDMS-TRACEABLE CREATININE METHODS. 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 He will be undergoing serum gastrin level testing as well as cross-sectional imaging. I will obtain his EGD report from [facility]. It is currently unclear to me [...] Duodenal well-differentiated neuroendocrine tumor History of Present [id number] man referred to me from Dr. Johansen for duodenal well-differentiated neuroendocrine tumor. He underwent EGD on 11/28/2020 at the [facility] in [facility] for a longstanding history of gastroesophageal [...] H PYL TISSUE, UREASE Negative Normal NEGATIVE [facility] Comment on above: Performed By: #### P OCGLUC #### [facility] [address] [address] [address] Freda Wayne POINT OF CARE GLUCOSEon 11-13 Glucose [Mass/Vol] 129 mg/dL Critically high 74-106 T [facility] Comment on above: Performed By: #### P OCGLUC #### [facility] [address], [place] [address] José Luis Beard Covid-19 PCR (CVDTBH)on 11-13 SARS-CoV-2 (COVID-19) RNA SHRUTI+probe Ql (Unsp spec) Not detected Normal NOT DETECTED [facility] Comment on above: Result Comment: This test is not yet approved or cleared by the [place] FDA. When there are no FDA-approved or cleared tests available, and other criteria are met, FDA can make tests available under an emergency access mechanism called an Emergency Use Authorization (EUA). The EUA for this test is supported by the Casting Finisher of Health and Human Service's (HHS's) declaration [...] consistent with SARS-CoV-2. Performed By: #### C [facility] #### [facility] [address] [place] [address] Dr. Freda Wayne [place] HEPATOBILIARY SCAN W [...] by: MARCELLO LEE Date: 2020-06-18 10:24 Normal [facility] Vital Signs Date Time Vital Sign Value Performing Clinician Facility 10-07-2023 10:30-0400 Diastolic blood pressure 77 mm[Hg] Jeremiah Magaña MD Work Phone: [facility] 10-07-2023 10:30-0400 Heart rate 71 /min Jeremiah Magaña MD Work Phone: [facility] 10-07-2023 10:30-0400 Respiratory rate 16 /min Jeremiah Magaña MD Work Phone: [facility] 10-07-2023 10:30-0400 Systolic blood pressure 130 mm[Hg] Jeremiah Magaña MD Work Phone: [facility] 10-07-2023 09:45-0400 Body temperature 97.2 [degF] Jeremiah Magaña MD Work Phone: [facility] 10-07-2023 09:45-0400 SaO2% (BldA) [Mass fraction] 95 % Jeremiah Magaña MD Work Phone: [facility] 10-07-2023 06:39-0400 Body height 177.8 cm Jeremiah Magaña MD Work Phone: [facility] 10-07-2023 06:39-0400 Body mass index (BMI) [Ratio] 33 kg/m2 Jeremiah Magaña MD Work Phone: [facility] 10-07-2023 06:39-0400 Body weight 104.33 kg Jeremiah Magaña MD Work Phone: [facility] 06-10-2023 09:30-0500 Diastolic blood pressure 63 mm[Hg] Sam Mcrae MD Work Phone: [facility] 06-10-2023 09:30-0500 Heart rate 62 /min Sam Mcrae MD Work Phone: [facility] 06-10-2023 09:30-0500 Respiratory rate 18 /min Sam Mcrae MD Work Phone: [facility] 06-10-2023 09:30-0500 SaO2% (BldA) [Mass fraction] 96 % Sam Mcrae MD Work Phone: [facility] 06-10-2023 09:30-0500 Systolic blood pressure 138 mm[Hg] Sam Mcrae MD Work Phone: [facility] 06-10-2023 09:10-0500 Body temperature 97.9 [degF] Sam Mcrae MD Work Phone: [facility] 06-10-2023 07:28-0500 Body height 177.8 cm Sam Mcrae MD Work Phone: [facility] 06-10-2023 07:28-0500 Body mass index (BMI) [Ratio] 34.29 kg/m2 Sam Mcrae MD Work Phone: [facility] 06-10-2023 07:28-0500 Body weight 108.41 kg Sam Mcrae MD Work Phone: [facility] 01-08-2021 14:15-0400 Body height 177.8 cm Vanessa Steele Work Phone: [facility] Work Phone: 01-08-2021 14:15-0400 Body mass index (BMI) [Ratio] 34.87 kg/m2 Vanessa Steele Work Phone: [facility] Work Phone: 01-08-2021 14:15-0400 Body surface area Derived from formula 2.27 m2 Vanessa Steele Work Phone: [facility] Work Phone: 01-08-2021 14:15-0400 Body temperature 97.5 [degF] Vanessa Steele Work Phone: [facility] Work Phone: 01-08-2021 14:15-0400 Body weight 110.22 kg Vanessa Steele Work Phone: [facility] Work Phone: 01-08-2021 14:15-0400 Diastolic blood pressure 81 mm[Hg] Vanessa Steele Work Phone: [facility] Work Phone: 01-08-2021 14:15-0400 Heart rate 76 /min Vanessa Steele Work Phone: [facility] Work Phone: 01-08-2021 14:15-0400 Systolic blood pressure 134 mm[Hg] Vanessa Steele Work Phone: [facility] Work Phone: Encounters Encounter Date Encounter Type Care Provider Facility Start: 01-11-2024 End: 01-11-2024 ambulatory SHAIKH JAMIE Not Available Start: 12-31-2023 End: 12-31-2023 ambulatory NEFTALI [facility] Start: 12-29-2023 End: 12-29-2023 ambulatory FRANCO [facility] Start: 12-28-2023 End: 12-28-2023 [facility] Start: 12-02-2023 ambulatory Maribeth Tanner Facility:[facility] Start: 12-01-2023 End: 12-03-2023 Subsequent hospital visit by physician [facility] Mri Room [facility] Comment on above: Bilateral renal cyst s; Adrenal adenoma, left Start: 12-01-2023 ambulatory [facility] Start: 11-30-2023 ambulatory [facility] Start: 11-30-2023 End: 11-30-2023 Subsequent hospital visit by physician Shaikh Jamie HERNANDEZ Work Phone: [facility] Comment on above: Bilateral renal cyst s; Adrenal adenoma, left Start: 11-16-2023 End: 11-16-2023 ambulatory SHAIKH JAMIE Not Available Start: 10-27-2023 End: 10-27-2023 ambulatory [facility] Start: 10-16-2023 End: 10-16-2023 ambulatory [facility] Start: 10-12-2023 End: 10-12-2023 ambulatory SHAIKH JAMIE Not Available Start: 10-07-2023 End: 10-07-2023 Subsequent hospital visit by physician Jeremiah Magaña MD Work Phone: [facility] Comment on above: 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) Start: 10-07-2023 End: 10-07-2023 ambulatory [facility] Start: 09-15-2023 End: 09-15-2023 ambulatory [facility] Start: 08-18-2023 End: 08-18-2023 ambulatory [facility] Start: 08-11-2023 End: 08-11-2023 ambulatory ALEXANDER JAMIE Not Available Start: 07-31-2023 ambulatory GRACE JUSTICE [facility] Start: 07-30-2023 Orders Only Shaikh Jamie HERNANDEZ Work Phone: [facility] Comment on above: Stage 3a chronic kid spencer disease (HCC) (CMS/HCC) (Primary Dx); Type 2 diabetes mellitus with stage 3a chronic kidney disease, without long-term current use of insulin (HCC) (CMS/HCC) Start: 07-28-2023 Refill Gerald Hawkins Work Phone: [facility] Comment on above: Primary hypertension (CMS/HCC) (Primary Dx) Start: 07-28-2023 End: 07-30-2023 Patient encounter procedure Grace Justice PA-C Work Phone: [facility] Work Phone: Start: 07-28-2023 End: 07-30-2023 Subsequent hospital visit by physician Grace Justice PA-C Work Phone: [facility] Comment on above: Exam for clinical tr ial Start: 07-27-2023 ambulatory ERIN [facility] Start: 07-15-2023 End: 07-15-2023 ambulatory ALEXANDER JAMIE Not Available Start: 07-02-2023 ambulatory Maribeth Lue [facility] Start: 06-30-2023 ambulatory Maribeth Lue Facility:[facility] Start: 06-29-2023 End: 06-29-2023 ambulatory RENEA YING Not Available Start: 06-18-2023 End: 06-18-2023 ambulatory NEFTALI KNOWLES [facility] Start: 06-10-2023 End: 06-10-2023 Subsequent hospital visit by physician Sam Mcrae MD Work Phone: [facility] Comment on above: 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 Neftali Knowles Facility:[facility] Start: 05-09-2022 Chart Update Vanessa butts Work Phone: [facility] Work Phone: Start: 04-29-2022 End: 04-29-2022 ambulatory Jeremiah Magaña Facility:[id number] Start: 03-01-2022 AUDIT Vanessa Penny ler Work Phone: [facility] Work Phone: Start: 12-05-2021 ambulatory Ms. Lulu Calle Facilit [phone] Start: 12-03-2021 AUDIT Vanessa Penny ler Work Phone: [facility] Work Phone: Start: 10-31-2021 ambulatory Ms. Lulu Calle Facilit [phone] Start: 08-26-[address] Neftali Knowles Facility:[facility] Start: 06-04-2021 End: 06-06-2021 Evaluation and management of inpatient DR VANESSA STEELE Facility:[facility] Start: 05-20-[address] Neftali Knowles Facility:[facility] Start: 05-16-2021 Result Review Vanessa Penny ler Work Phone: FZ-Ubbapplebrvxulmk-I [place] [facility] 450 DO Work Phone: Start: 05-01-2021 Chart Update Vanesas Penny ler Work Phone: ZR-Hrobyflmoliiptkw-Z [place] [facility] 450 DO Work Phone: Start: 04-26-2021 AUDIT Vanessa Penny ler Work Phone: [facility] Work Phone: Start: 02-05-2021 Telephone encounter Vanessa Steele Work Phone: OF-Erdyjewdfyrzttxw-J [place] [facility] 450 DO Work Phone: Start: 01-23-2021 AUDIT Vanessa Dey Dil ler Work Phone: NH-Welpzbttcymscxnc-K [place] [facility] 450 DO Work Phone: Start: 01-18-2021 AUDIT Vanessa Dey Dil ler Work Phone: [facility] Work Phone: Start: 01-10-2021 Office outpatient vi sit 15 minutes Vanessa Steele Work Phone: [facility] Work Phone: Start: 12-19-2020 Office outpatient ne w 60 minutes Vanessa Steele Work Phone: [facility] Work Phone: Start: 11-29-2020 Encounter for preprocedural laboratory examination DR XAVI THOMPSON [facility] Start: 11-28-2020 End: 11-28-2020 ambulatory MIQUEL HAWKINS Facility:[facility] Start: 11-26-2020 End: 11-27-[address] XAVI THOMPSON Facility:[facility] Start: 11-26-2020 End: 11-27-2020 Encounter for preprocedural laboratory examination DR XAVI THOMPSON Facility:[facility] Start: 06-18-2020 End: 06-19-[address] VANESSA STEELE Facility:[facility] Start: 10-08-2018 End: 10-09-2018 Patient encounter procedure DEFAULT PHYSICIAN Facility:[facility] Procedures Date Procedure Procedure Detail Performing Clinician Start: 11-30-2023 Assay of urea nitrogen quantitative Grace Justice PA-C Work Phone: Start: 10-07-2023 DISCHARGE PATIENT JAZLYN MELENDEZSAM Start: 10-07-2023 ENDOSCOPIC ULTRASOUND (UPPER) JAZLYN KINNEY MBA Start: 10-07-2023 SURGICAL PATHOLOGY EXAM JAZLYN MCARTHUR Start: 10-07-2023 PLACE IN OUTPATIENT/HOSPITAL AMBULATORY SURGERY JZALYN MCARTHUR Start: 10-07-2023 Glucose [Mass/volume] in Serum or Plasma JAZLYN MCARTHUR Start: 10-07-2023 Edg us exam surgical alter stom duodenum/jejunum Sam Mcrae MD Work Phone: Start: 10-07-2023 Glucose quantitative blood xcpt reagent strip Jeremiah Magaña MD Work Phone: Start: 07-28-2023 Unlisted us procedure Grace Justice PA-C Work Phone: Start: 06-18-2023 ONCBCN CLINIC APPOINTMENT REQUEST SHAIKH JAIME Start: 06-10-2023 PULSE OXIMETRY, CONTINUOUS JAZLYN MCARTHUR Start: 06-10-2023 Esophagogastroduodenoscopy JAZLYN MCARTHUR Start: 06-10-2023 SURGICAL PATHOLOGY EXAM JAZLYN MCARTHUR Start: 06-10-2023 PULSE OXIMETRY, SPOT JAZLYN MCARTHUR Start: 06-10-2023 PLACE IN OUTPATIENT/HOSPITAL AMBULATORY SURGERY JAZLYN MCARTHUR Start: 06-10-2023 PULSE OXIMETRY, CONTINUOUS Sam caruso MD Work Phone: Start: 06-10-2023 Egd transoral biopsy single/multiple Jazlyn Melendezsam [employer] Work Phone: Start: 06-10-2023 Glucose [Mass/volume] in Serum or Plasma JAZLYN MCARTHUR Start: 06-10-2023 PULSE OXIMETRY, SPOT Sam Mcrae MD Work Phone: Start: 06-10-2023 Glucose quantitative blood xcpt reagent strip Sam Mcrae MD Work Phone: Start: 05-26-2023 CT CHEST ABDOMEN PELVIS W IV CONTRAST JAZLYN MCARTHUR Start: 05-26-2023 Ct thorax w/contrast material Jazlyncecilia Manley michelle [employer] Work Phone: Start: 05-22-2023 CBC W Auto Differential panel - Blood SHAIKH JAMIE Start: 05-22-2023 Comprehensive metabolic 2000 panel - Serum or Plasma SHAIKH JAMIE Start: 03-06-2023 Lipid 1996 panel - Serum or Plasma Stj 2 Start: 12-05-2021 Medical genetics counseling each 30 minutes Vanessa Steele Work Phone: Start: 10-31-2021 Medical genetics counseling each 30 minutes Vanessa Steele Work Phone: Start: 06-04-2021 Resection of Gallbladder, Percutaneous Endoscopic Approach DR VANESSA STEELE Start: 11-28-2020 Colonoscopy Sam Mcrae MD Work Phone: Appendectomy Vanessa Burciaga er Work Phone: Excision of bunion Vanessa Steele Work Phone: Repair of shoulder Vanessa Steele Work Phone: Plan of Treatment Date Care Activity Detail Author Start: 11-28-2030 Screening for malign ant neoplasm of colon [facility] Start: 10-27-2028 DTaP/Tdap/Td vaccine (3 - Td or Tdap) DTaP/Tdap/Td vaccine (3 - Td or Tdap) [facility] Start: 10-27-2028 DTaP/Tdap/Td Vaccine s (4 - Td or Tdap) DTaP/Tdap/Td Vaccines (4 - Td or Tdap) [facility] Start: 03-06-2028 Lipid panel Lipid Panel [facility] Start: 11-29-2024 GFR test (Diabetes, CKD 3-4, OR last GFR 15-59) GFR test (Diabetes, CKD 3-4, OR last GFR 15-59) [facility] Start: 10-06-2024 Diabetes mellitus screening Diabetes Screening [facility] Start: 06-21-2024 End: 06-21-2024 Patient encounter procedure 06/21/2024 9:40 AM EST Office Visit [facility] [address] [place] [id number] [place] [address] [place] [address] [facility] Start: 06-10-2024 Diabetes mellitus screening Diabetes Screening [facility] Start: 02-25-2024 Medicare Annual Wellness (AWV) Medicare Annual Wellness (AWV) [facility] Start: 12-31-2023 End: 12-31-2023 Patient encounter procedure 12/31/2023 7:30 AM EDT Appointment [facility] [address] [place] [address] [facility] Start: 12-07-2023 End: 12-07-2023 Patient encounter procedure 12/07/2023 10:30 AM EDT Office Visit [facility] Main [address] [address] Grace Justice PA-C [address] [place] [address] [place] [address] 3 month f/u with MRI and PVR [facility] [place] Comment on above: 3 month f/u with MRI and PVR Start: 12-01-2023 Subsequent hospital visit by physician 12/01/2023 9:30 AM EDT Hospital Encounter [facility] [address] [place] [id number] [facility] Start: 09-28-2023 Hemoglobin A1c measurement Diabetes: Hemoglobin A1C [facility] Start: 08-27-2023 COVID-19 Vaccine ( season) COVID-19 Vaccine () [facility] Start: 08-11-2023 End: 08-11-2023 Patient encounter procedure 08/11/2023 9:15 AM EST Office Visit [facility] [address] [place] [address] Shaikh Ayala MD [address] [place] [address] [facility] Start: 07-31-2023 Annual Wellness Visi t (Medicare) Annual Wellness Visit (Medicare) [facility] Start: 07-31-2023 End: 07-31-2023 Patient encounter procedure 07/31/2023 9:30 AM EST Office Visit [facility] on [address] [address] Grace Justice PA-C [address] [place] [address] [place] [address] N28.1 - Renal cyst, left [facility] [place] Comment on above: N28.1 - Renal cyst, left Start: 06-23-2023 COVID-19 Vaccine (4 - Pfizer series) COVID-19 Vaccine (4 - Pfizer series) [facility] Start: 06-18-2023 End: 06-18-2023 Patient encounter procedure 06/18/2023 12:40 PM EST Office Visit [facility] [address] [place] [phone] [place] [address] [place] [address] [facility] Start: 06-10-2023 End: 06-10-2023 Patient encounter procedure 06/10/2023 8:30 AM EST Appointment [facility] [address] [place] [address] [place] [address] [facility] [address] [facility] [address] [place] [address] [facility] Start: 04-29-2023 Diabetes mellitus screening Diabetes Screening [facility] Start: 04-29-2022 EGDANS, Provider: Jeremiah Magaña, Status: Pen, Time: 7:30 AM EGDANS, Provider: Jeremiah Magaña, Status: Pen, Time: 7:30 AM JT-Rghzzwzv-Fhcekztu 1500 Work Phone: Start: 11-13-2021 NPV, Provider: Deb Zavala, Status: Pen, Time: 11:20 AM NPV, Provider: Deb Zavala, Status: Pen, Time: 11:20 AM CO-Zbllnfqj-Ehevjzmj 1500 Work Phone: Start: 05-01-2021 EGDANS, Provider: Irwin Cespedes, Status: Pen, Time: 8:30 AM EGDANS, Provider: Irwin Cespedes, Status: Pen, Time: 8:30 AM PJ-Mzdjrqptczhvewkh-I [place] [facility] 450 DO Work Phone: Start: 01-23-2021 EUSANS, Provider: Irwin Cespedes, Status: Malcolm, Time: 10:30 AM SHAVONNE, Provider: Irwin Cespedes, Status: Malcolm, Time: 10:30 AM [facility] Work Phone: Start: 07-08-2020 Glaucoma screening Diabetes: R etinopathy Screening [facility] Start: 07-19-2016 Shingles vaccine (2 of 3) Shingles vaccine (2 of 3) [facility] Start: 07-19-2016 Zoster Vaccines (2 o f 3) Zoster Vaccines (2 of 3) [facility] Start: 2014 Abdominal aortic aneurysm screening Abdominal Aortic Aneurysm (AAA) Screening [facility] Start: 2009 Hepatitis B Vaccines (1 of 3 - Risk 3-dose series) Hepatitis B Vaccines (1 of 3 - Risk 3-dose series) [facility] Start: 2009 Respiratory Syncytia l Virus (RSV) or age 60 yrs+ (1 - 1-dose 60+ series) Respiratory Syncytial Virus (RSV) or age 60 yrs+ (1 - 1-dose 60+ series) [facility] Start: 2009 RSV patient s and/or patients aged 60+ years (1 - 1-dose 60+ series) RSV patients and/or patients aged 60+ years (1 - 1-dose 60+ series) [facility] Start: 1994 Screening for malign ant neoplasm of [facility] Start: 1989 Lipid panel [facility] Start: 1968 Hepatitis A Vaccines (1 of 2 - Risk 2-dose series) Hepatitis A Vaccines (1 of 2 - Risk 2-dose series) [facility] Start: 1967 Hepatitis C screening [facility] Start: 1961 Depression Screen Depression Screen [facility] Start: 1959 Lipid panel Lipids [facility] Start: 1949 Medicare Annual Wellness Visit Medicare Annual Wellness Visit (AWV) [facility] Start: 1949 Screening for malign ant neoplasm of colon [facility] End: 05-26-2023 CT Chest and Abdomen and Pelvis W contrast IV [facility] Service Area Work Phone: Comment on above: Once for 1 Occurrenc es starting 05/26/2023 until 05/26/2023 End: 10-07-2023 Moderate Sedation Moderate Sedation Procedures Routine Once for 1 Occurrences starting 10/07/2023 until 10/07/2023 [facility] Work Phone: Comment on above: Once for 1 Occurrenc es starting 10/07/2023 until 10/07/2023 End: 12-01-2023 MR Abdomen WO and W contrast IV [facility] Work Phone: Comment on above: 1 Occurrences starti ng 12/01/2023 until 12/01/2023 End: 10-07-2023 Pulse oximetry, continuous Pulse oximetry, continuous Respiratory Care Routine Continuous until discontinued starting 10/07/2023 [facility] Work Phone: Comment on above: Continuous until dis continued starting 10/07/2023 End: 10-07-2023 Pulse oximetry, spot Pulse oximetry, spot Respiratory Care Routine Once for 1 Occurrences starting 10/07/2023 until 10/07/2023 [facility] Service Area Work Phone: Comment on above: Once for 1 Occurrenc es starting 10/07/2023 until 10/07/2023 Surgical pathology study [facility] Service Area Work Phone: Comment on above: Release Upon Orderin g for 1 Occurrences starting 06/10/2023 Release Upon Orderin g for 1 Occurrences starting 06/10/2023, 1 completed Surgical pathology study [facility] Work Phone: Comment on above: Release Upon Orderin g for 1 Occurrences starting 10/07/2023, 1 completed Immunizations Immunization Date Immunization Notes Care Provider Fa [facility] 03-20-2023 Influenza, High-dose Seasonal, Quadrivalent, Preservative Free Gerald Low MD Work Phone: [facility] 02-24-2023 pneumococcal polysaccharide vaccine, 23 valent Gerald Low MD Work Phone: [facility] 03-27-2022 Influenza, High-dose Seasonal, Quadrivalent, Preservative Free Gerald Low MD Work Phone: [facility] 10-15-2021 Comirnaty 30 MCG/0.3 ML Intramuscular Suspension Vanessa Steele Work Phone: NG-Actdysqf-Halppay e 1500 Work Phone: 03-25-2021 Pfizer-BioNTech COVI D-19 Vacc 30 MCG/0.3ML Intramuscular Suspension Vanessa Dey [place] Work Phone: RV-Rpgpyazc-Asnessg e 1500 Work Phone: 03-01-2021 Fluzone High-Dose Quadrivalent 0.7 ML Intramuscular Suspension Prefilled Syringe Vanessa Dey [place] Work Phone: IU-Gqelvmyp-Homfhcx e 1500 Work Phone: 08-07-2020 Pfizer-BioNTech COVI D-19 Vacc 30 MCG/0.3ML Intramuscular Suspension Vanessa Dey C[place] Work Phone: [facility] Work Phone: 07-17-2020 Pfizer-BioNTech COVI D-19 Vacc 30 MCG/0.3ML Intramuscular Suspension Vanessa Dey [place] Work Phone: [facility] Work Phone: 02-24-2020 Fluzone High-Dose Quadrivalent 0.7 ML Intramuscular Suspension Prefilled Syringe Vanessa Dey [place] Work Phone: [facility] Work Phone: 03-09-2019 influenza, high dose seasonal, preservative-free Vanessa Dey Cedric Work Phone: [facility] Work Phone: 11-22-2018 pneumococcal conjuga te vaccine, 13 valent Vanessa Dey Cedric Work Phone: [facility] Work Phone: 10-27-2018 tetanus and diphther ia toxoids, adsorbed, preservative free, for adult use (2 Lf of tetanus toxoid and 2 Lf of diphtheria toxoid) Gerald Low MD Work Phone: [facility] 10-27-2018 tetanus toxoid, redu norris diphtheria toxoid, and acellular pertussis vaccine, adsorbed Vanessa Steele Work Phone: [facility] Work Phone: 05-21-2018 pneumococcal conjuga te vaccine, 13 valent Vanessa Pennyler Work Phone: [facility] Work Phone: 04-09-2018 influenza, high dose seasonal, preservative-free Vanessa F [place] Work Phone: [facility] Work Phone: 05-18-2017 influenza, high dose seasonal, preservative-free Vanessa Dey Cedric Work Phone: [facility] Work Phone: 05-24-2016 zoster vaccine, live Abranha n F Cedric Work Phone: [facility] Work Phone: 05-15-2016 zoster vaccine, live Jeanienatha n F [place] Work Phone: [facility] Work Phone: 03-13-2016 influenza, seasonal, injectable, preservative free Vanessa F Cedric Work Phone: [facility] Work Phone: 03-28-2015 influenza, seasonal, injectable, preservative free Vanessa F Cedric Work Phone: [facility] Work Phone: 03-14-2011 tetanus toxoid, redu norris diphtheria toxoid, and acellular pertussis vaccine, adsorbed Vanessa Pennyler Work Phone: [facility] Work Phone: 08-06-2009 novel influenza-H1N1 -09, preservative-free, injectable Vanessa Steele Work Phone: [facility] Work Phone: 05-12-2006 pneumococcal polysaccharide vaccine, 23 valent Vanessa Steele Work Phone: [facility] Work Phone: Payers Date Payer Category Payer Private Health Insurance ALICE DANGELO [id number] 2022-Present [address] [place] [id number] 2016 Medicare [id number] 2016 Unknown 1959 Medicare [id number] 1959 Private Health Insurance [id number] 1949 Unknown [id number] 2.16.840.1.652367.3.579.2. 647 1949 Unknown [id number] 2.16.840.1.461631.3.579.2. 593 1949 Unknown [id number] 2.16.840.1.735859.3.579.2. 593 1949 Unknown [id number] 2.16.840.1.114726.3.579.2. 593 1949 Unknown [id number] 2.16.840.1.378063.3.579.2. 593 1949 Unknown [id number] 2.16.840.1.128167.3.579.2. 356 1949 Unknown [id number] 2.16.840.1.015260.3.579.2. 356 1949 Unknown [id number] 2.16.840.1.428038.3.579.2. 356 1949 Unknown [id number] 2.16.840.1.372283.3.579.2. 356 1949 Unknown [id number] 2.16.840.1.055518.3.579.2. 356 1949 Unknown [id number] 2.16.840.1.902634.3.579.2. 1069 1949 Unknown [id number] 2.16.840.1.955313.3.579.2. 1069 1949 Unknown [id number] 2.16.840.1.185642.3.579.2. 754 1949 Unknown [id number] 2.16.840.1.098544.3.579.2. 754 1949 Unknown [id number] 2.16.840.1.911615.3.579.2. 754 1949 Unknown [id number] 2.16.840.1.563131.3.579.2. 1245 1949 Unknown [id number] 2.16.840.1.692018.3.579.2. 1245 1949 Unknown [id number] 2.16.840.1.700913.3.579.2. 1245 1949 Unknown [id number] 2.16.840.1.405992.3.579.2. 1243 1949 Unknown [id number] 2.16.840.1.853361.3.579.2. 1243 1949 Unknown [id number] 2.16.840.1.322563.3.579.2. 1243 1949 Unknown [id number] 2.16.840.1.854864.3.579.2. 1243 1949 Unknown [id number] 2.16.840.1.532667.3.579.2. 1243 1949 Unknown [id number] 2.16.840.1.760777.3.579.2. 1259 1949 Unknown [id number] 2.16.840.1.192677.3.579.2. 1259 1949 Unknown [id number] 2.16.840.1.331324.3.579.2. 1259 1949 Unknown [id number] 2.16.840.1.768738.3.579.2. 1259 1949 Unknown [id number] 2.16.840.1.136559.3.579.2. 1259 1949 Unknown [id number] 2.16.840.1.335089.3.579.2. 1259 1949 Unknown [id number] 2.16.840.1.536894.3.579.2. 1259 Social History Date Type Detail Facility Start: 06-10-2023 End: 12-01-2023 Non-smoker Non-smoker [facility] Tobacco smoking status OKIS Tobacco smoking consumption unknown [facility] Work Phone: Start: 1950 Sex Assigned At Not on file [facility] Work Phone: Start: 06-10-2023 End: 12-01-2023 Gender identity Not on file [facility] Start: 05-12-2023 End: 10-07-2023 Exposure to SARS-CoV-2 (event) Not sure [facility] Start: 06-10-2023 End: 07-15-2023 Tobacco smoking status NHIS Ex-smoker [facility] Work Phone: End: 06-15-1983 History of tobacco use Current smoker [facility] Work Phone: End: 06-15-1983 History of tobacco use Cigarette Smoker [facility] Work Phone: Start: 06-10-2023 End: 07-31-2023 Tobacco use and exposure Smokeless tobacco non-user [facility] Work Phone: Start: 06-10-2023 End: 10-07-2023 Alcohol intake Current drinker of alcohol (finding) [facility] Work Phone: Start: 06-10-2023 Alcohol Comment Social [facility] Work Phone: Within the last year , have you been afraid of your partner or ex-partner? No [facility] How often do you attend hoahaoism or confucianism services? Patient refused [facility] Are you [...] Identifies as male gender (finding) [facility] Start: 10-07-2023 Sexual orientation Heterosexual (sancho crum) [facility] Start: 07-31-2023 Tobacco smoking status NHIS Never smoked tobacco [facility] Phone: Start: 09-07-2023 End: 12-01-2023 Alcohol intake Ex-drinker (finding) [facility] Phone: NEGATED: Highlighted rowStart: NINF History of tobacco use Passive smoker [facility] Medical Equipment Procedure Code Equipment Code Equipment Original Text Equipment Identifier Dates Generic Supply 0 8 Case [id number] Start: 01-23-2021 Comment on above: Description: Convert ed from [facility]. Please see archived information for full log information. USE DIRECTED ONCE TEST [id number] Start: 06-22-2023 USE DIRECTED ONCE TEST [id number] Start: 06-22-2023 Clinical Notes 11-28-2020 to 10-27-2023 Discharge InstructionsJeremiah Magaña MD - 10/07/2023 7:30 AM EDCecilia Magaña MD - 10/07/2023 7:30 AM EDTDischarge InstructionsPre-Sedation Documentation - Sam Mcrae MD - 06/10/2023 8:30 AM EST Note Date & Type Note Facility 10-27-2023 Note [facility] Consult Note Reason for visit: PAC/PVC 10/27/23 Table study was negative for any evidence of syncope but the blood pressure had dropped from a baseline of 167/88 mmHg and heart rate of 69 to-140/80 3 mmHg and a heart rate of 78 with subsequent drop 216/82 mmHg suggestive of orthostatic changes. there was no associated tachycardia noted but symptoms were present. He is scheduled for a consultation with pulmonary next week to discuss sleep study. Not sure if he's taking 5mg or 10mg BID of bisoprolol. BP log has been good and he has felt better since stopping HLZ and beng on Bisoprolol. Tilt Table test 10/16/23 AT BASELINE, Had a supine blood pressure of 167/88 MmHg, a heart rate of 69 and THE PATIENT WAS TILTED to 70 degree head upright position for 20 minutes. He had a maximum blood pressure of 140/83 mmHg, a heart rate of 78 bpm and Normal Sinus rhythm at minute 4. He had a minimum blood pressure of 116/82 mmHg, a heart rate of 87 bpm and Normal Sinus rhythm at minute 12. Symptoms during initial Tilt: dizziness, face tightness, head & shoulder pain, leg heaviness, whole body heaviness, left arm falling asleep, hands feeling cold, right knee discomfort, left eye discomfort, occassional PVCs while at 70 degrees. THE TEST WAS COMPLETED and the patient was returned to supine position. He had a blood pressure of 163/95 mmHg, a heart rate of 66 bpm, and Normal Sinus rhythm at minute 21 Symptoms Post Test: dizzy, face tightness, dizzy with position changes which subsided with rest. FINAL IMPRESSION: Negative study for Syncope HPI: Yusef Car is a 73 y.o. year old with past medical history of syncope was previously seen by cardiology team including Yamilet Cleveland and ordered a stress test which was positive and also noted to have nonsustained VT. patient was therefore followed up with a cardiac catheterization which was performed on 07/27/[address] CELESTE. He had presented again with chest pain subsequently which resolved with aspirin and nitroglycerin at that time the blood pressure was noted to be in the 200s which was in the setting of having held his antihypertensive due to low blood pressure readings in the doctor's office. He states he feels occasional palpitations but denied any syncope or dizziness. He feels tired. Previously has noted that his heart rate was in the 30s and the sensation of feeling to pass out and had been noted to have PVCs on telemetry and on EKG He was subsequently given a 30-day event monitor which she wore from 07/28/2023 to07/28/2023 to 08/27/2023 that showed both PACs and PVCs accounting for less than 1% of PVC burden and 3% PAC burden. there were episodes of nonsustained atrial tachycardia as noted on 07/30/2023 at 2:28 PM, 08/06/2023 at 5:33 PM and 07/31/2023 at 8 AM. there were numerous episodes of sinus rhythm with PACs no VT or A-fib was noted. patient has been noted to have elevated blood pressure readings and so missing both at increased hyperlucent to 50 mg twice daily. he feels markedly symptomatic when he tries to get up from sitting position indicative of orthostatic changes. he states that his symptoms are markedly worse after he has been placed on hydralazine. previously he was on bisoprolol 5 mg as well as amlodipine 10 mg along with losartan 100 once daily. at that time his blood pressure was noted to be low which caused her blood pressure medications to be altered. Last labs on 08/06/2023 at 5:30 PM and 07/31/2023 at 8 AM PMH: Past Medical History: Diagnosis Date Arrhythmia CKD (chronic kidney disease) stage 3, GFR 30-59 ml/min (CMS/HCC) Diabetes 1.5, managed as type 2 (CMS/HCC) HTN (hypertension) Hyperlipidemia NSVT (nonsustained ventricular tachycardia) (CMS/HCC) Primary malignant neoplasm of duodenum (CMS/HCC) PSH: Past Surgical History: Procedure Laterality Date CARDIAC CATHETERIZATION 07/27/2023 SH: Social Determinants of Health Tobacco Use: Medium Risk (10/16/2023) Patient History Smoking Tobacco Use: Former Smokeless Tobacco Use: Never Passive Exposure: Not on file Alcohol Use: Not on file Financial Resource Strain: Not on file Food Insecurity: Not on file Transportation Needs: Not on file Physical Activity: Not on file Stress: Not on file Social Connections: Not on file Intimate Partner Violence: Unknown (08/06/2023) [place] Safety & Environment Fear of Current or Ex-Partner: Not on file Emotionally Abused: Not on file Physically Abused: Not on file Sexually Abused: Not on file Physically or Sexually Abused: Not on file Depression: Not on file Housing Stability: Not on file Utilities: Not on file Allergies: Allergies Allergen Reactions Azithromycin Other Ciprofloxacin Other Lisinopril Cough Weight: 106kg Visit Vitals BP 130/78 (BP Location: Left arm, Patient Position: Sitting) Pulse 70 Ht 1.778 m (5' 10 ) Wt 106 kg (234 lb) SpO2 95% BMI 33.58 kg/m??? Smok (more content not included)... [facility] 10-07-2023 Hospital Discharge instructions Jeremiah Magaña MD - 10/07/2023 8:38 AM EDT Patient Instructions after an endoscopy or colonoscopy [...] having your procedure, call the [facility] to be advised whether a visit to [...] or looks infected. documented in this encounter [facility] Work Phone: 10-07-2023 Attending History and physical note H&P reviewed. The patient was examined and there are no changes to the H&P. Hx of duodenal bulb NET. Recent duodenal polyp, biopsy came back negative for NET. Here for EUS and EMR of duodenal polyp. Source Note - Noe Knight MD - 09/15/2023 3:00 PM EDT Images from the original note were not included. [facility] Consult Note Reason for visit: PAC/PVC HPI: Yusef Car is a 73 y.o. year old with past medical history of syncope was previously seen by cardiology team including Yamilet Cleveland and ordered a stress test which was positive and also noted to have nonsustained VT. patient was therefore followed up with a cardiac catheterization which was performed on 07/27/[address] CELESTE. He had presented again with chest pain subsequently which resolved with aspirin and nitroglycerin at that time the blood pressure was noted to be in the 200s which was in the setting of having held his antihypertensive due to low blood pressure readings in the doctor's office. He states he feels occasional palpitations but denied any syncope or dizziness. He feels tired. Previously has noted that his heart rate was in the 30s and the sensation of feeling to pass out and had been noted to have PVCs on telemetry and on EKG He was subsequently given a 30-day event monitor which she wore from 07/28/2023 to07/28/2023 to 08/27/2023 that showed both PACs and PVCs accounting for less than 1% of PVC burden and 3% PAC burden. there were episodes of nonsustained atrial tachycardia as noted on 07/30/2023 at 2:28 PM, 08/06/2023 at 5:33 PM and 07/31/2023 at 8 AM. there were numerous episodes of sinus rhythm with PACs no VT or A-fib was noted. patient has been noted to have elevated blood pressure readings and so missing both at increased hyperlucent to 50 mg twice daily. he feels markedly symptomatic when he tries to get up from sitting position indicative of orthostatic changes. he states that his symptoms are markedly worse after he has been placed on hydralazine. previously he was on bisoprolol 5 mg as well as amlodipine 10 mg along with losartan 100 once daily. at that time his blood pressure was noted to be low which caused her blood pressure medications to be altered. Last labs on 08/06/2023 at 5:30 PM and 07/31/2023 at 8 AM PMH: Past Medical History: Diagnosis Date Arrhythmia CKD (chronic kidney disease) stage 3, GFR 30-59 ml/min ([facility]) Diabetes 1.5, managed as type 2 ([facility]) HTN (hypertension) Hyperlipidemia NSVT (nonsustained ventricular tachycardia) ([facility]) Primary malignant neoplasm of duodenum ([facility]) PSH: Past Surgical History: Procedure Laterality Date CARDIAC CATHETERIZATION 07/27/2023 SH: Social Determinants of Health Tobacco Use: Medium Risk (09/15/2023) Patient History Smoking Tobacco Use: Former Smokeless Tobacco Use: Never Passive Exposure: Not on file Alcohol Use: Not on file Financial Resource Strain: Not on file Food Insecurity: Not on file Transportation Needs: Not on file Physical Activity: Not on file Stress: Not on file Social Connections: Not on file Intimate Partner Violence: Unknown (08/06/2023) [place] Safety [place] Fear of Current or Ex-Partner: Not on file Emotionally Abused: Not on file Physically Abused: Not on file Sexually Abused: Not on file Physically or Sexually Abused: Not on file Depression: Not on file Housing Stability: Not on file Utilities: Not on file Allergies: Allergies Allergen Reactions Azithromycin Other Ciprofloxacin Other Lisinopril Cough Weight: 107kg Visit Vitals BP 130/84 (BP Location: Left arm, Patient Position: Sitting, BP Cuff Size: Adult) Pulse 96 Resp 13 Ht 1.778 m (5' 10 ) Wt 107 kg (235 lb) SpO2 94% BMI 33.72 kg/m Smoking Status Former BSA 2.3 m Meds: Current Outpatient Medications on File Prior to Visit Medication Sig Dispense Refill allopurinol (Zyloprim) 300 mg tablet Take 300 mg by mouth in the morning. aspirin 81 mg chewable tablet Chew 1 tablet (81 mg) in the morning. 90 tablet 3 empagliflozin (Jardiance) 25 mg Take 25 mg by mouth in the morning. fluticasone (Flonase) 50 mcg/actuation nasal spray Administer 2 sprays into each nostril in the morning. Shake gently. Before first use, prime pump. After use, clean tip and replace cap. furosemide (Lasix) 20 mg tablet Take 20 mg by mouth in the morning. glimepiride (Amaryl) 4 mg tablet Take 4 mg by mouth before breakfast. hydrALAZINE (Apresoline) 50 mg tablet Take 1 tablet (50 mg) by mouth in the morning and at bedtime. 180 tablet 3 losartan (Cozaar) 100 mg tablet Take 100 mg by mouth in the morning. omeprazole (PriLOSEC) [address] capsule Take 40 mg by mouth before breakfast. Do not crush or chew. rosuvastatin (Crestor) 10 mg tablet Take 2 tablets (20 mg) by mouth in the morning. 180 tablet 3 rosuvastatin (Crestor) 20 mg tablet Take 1 tablet (20 mg) by mouth in the morning. 90 tablet 3 tamsulosin (Flomax) 0.4 mg 24 hr capsule Take 1 capsule by mouth in the evening. [DISCONTINUED] bisoprolol (Zebeta) 10 mg tablet Take 1 tablet by mouth in the morning. [DISCONTINUED] amLODIPine (Norvasc) 10 mg tablet Take 10 mg by mouth in the morning. [DISCONTINUED] pioglitazone (Actos) 30 mg tablet Take 30 mg by mouth in the morning. No current facility-administered medications on file prior to visit. ROS: Cardio Basic Cardiovascular Symptoms: no lightheadedness, no leg edema, no syncope, no orthopnea, no PND, no claudication, Constitutional Constitutional: no fever, no night sweats, no significant weight gain, no significant weight loss, no exercise intolerance Eyes Eyes: no dry eyes, no irritation, no vision change ENMT Ears: no difficulty hearing, no ear pain Nose: no frequent nosebleeds, Mouth/Throat: no sore throat, no bleeding gums, no snoring, no dry mouth, no mouth ulcers, no oral abnormalities, no teeth problems Respiratory Respiratory: no cough, no wheezing, no coughing up blood, no sleep apnea Musculoskeletal Musculoskeletal: no muscle aches, no muscle weakness, joint pain+, no back pain, no swelling in the extremities Integumentary Skin no rash, no ulcer, no varicosities, no discoloration, no pruritus Neurologic Neurologic: no loss of consciousness, no weakness, no numbness, no seizures, no dizziness, no headaches Psychiatric Psych: no depression, feeling safe in relationship, no alcohol abuse, Hematologic/Lymphatic Hematologic/Lymphatic no swollen glands, no bruising Physical Exam: Constitutional General Appearance: well-nourished, well-developed, appears stated age Level of Distress: comfortable Psychiatric Mental Status: alert, normal affect Orientation: oriented to time, place, and person Insight: good judgement Eyes Lids and Conjunctivae: non-injected, no xanthelasma ENMT Ears: no lesions on external ear Nose: no lesions on external nose Oropharynx: no cyanosis, no pallor Neck Neck: supple, trachea midline Carotid Arteries: bilateral normal upstroke, no bruits Jugular Veins: normal jugular venous pressure Thyroid: not enlarged Lungs Respiratory Effort: unlabored Chest Exam: normal curvature, no thoracic deformity Auscultation: clear, no wheezing, no rales, no rhonchi Cardiovascular Rate And Rhythm: regular Heart Sounds: normal S1, normal s2, no gallop Systolic Murmur: not heard Diastolic Murmur: not heard Extremities: no cyanosis, no edema, no peripheral signs of emboli Peripheral Pulses Radial Pulse: normal Abdomen Inspection and Palpation: soft, non distended, no bruit, non tender Musculoskeletal Inspection: no joint swelling Neurologic Gait: normal gait Skin Inspection and Palpation: warm and dry Nails: no clubbing Labs: @LABRESULTS@ No results found for: CHOLESTEROL TOTAL , HDL , LDL CALC , LDL DIRECT , TRIGLYCERIDES , TSH , T3 TOTAL , T4 TOTAL , THYROID PEROXIDASE AB , BNP EKG: Encounter Date: 07/27/23 Electrocardiogram, 12-lead Result Value Ventricular Rate 62 Atrial Rate 62 HI Interval 204 QRS DURATION 108 QT Interval 440 QTC CALCULATION(BAZETT) 446 P [place] 26 R-[place] -24 T Wave [place] 28 Impression Normal sinus rhythm Moderate voltage criteria for LVH, may be normal variant ( R in aVL , [place] product ) Borderline ECG No previous ECGs available Confirmed by Mitzi ZAVALA SAMER J. ([id number]) on 07/27/2023 11:35:57 AM Cath 07/27/23 FINAL IMPRESSIONS: Mild coronary artery disease Normal [...] Follow-up with our cardiology office in the [facility] in the next 2 to 4 weeks 07/08/2023 TTE CONCLUSION: 1. Mild concentric left ventricular hypertrophy with normal systolic function.LVEF is 55 to 60%. 2. Normal right ventricular size and systolic function. 3. Mild to moderate biatrial dilatation. 4. Mild mitral regurgitation. 5. No pericardial effusion. 07/27/23 EKG Result Text IMPRESSION: Normal sinus rhythm Moderate voltage criteria for LVH, may be normal variant (R in aVL,[place] product) Borderline ECG No previous ECGs available Confirmed by Mitzi ZAVALA, KIM Serrato ([id number]) on 07/27/2023 11:35:57 AM Diagnostic Imaging: No images are attached to the encounter. Assessment and Plan: - palpitations - PVCs - PACs - nonsustained atrial tachycardia - diabetes mellitus type 2 - orthostatic hypotension - hypertension patient has A complicated history of having orthostatic changes in the setting of hypertension. Moreover he has not evidence of PVCs and PACs and although the burden is less he does feel symptomatic with that. At this stage advised him to come off the hydralazine and to restart the bisoprolol 5 mg twice daily and to log his blood pressure 3 times a day. I have also suggested that he undergo a tilt table test. given that his PVC and PAC burden is quite low but is difficult to consider taking for an EP lab for procedure. If beta-blockers alone is not able to control I would consider adding class Ic agent like flecainide given that his heart cath has been negative. Noe Knight MD Cardiac Electrophysiology [facility] Work Phone: 10-07-2023 History and physical note H&P reviewed. The patient was examined and there are no changes to the H&P. Hx of duodenal bulb NET. Recent duodenal polyp, biopsy came back negative for NET. Here for EUS and EMR of duodenal polyp. Source Note - Noe Knight MD - 09/15/2023 3:00 PM EDT Images from the original note were not included. [place] [facility] Consult Note Reason for visit: PAC/PVC HPI: Yusef Car is a 73 y.o. year old with past medical history of syncope was previously seen by cardiology team including Yamilet Cleveland and ordered a stress test which was positive and also noted to have nonsustained VT. patient was therefore followed up with a cardiac catheterization which was performed on 07/27/[address] CELESTE. He had presented again with chest pain subsequently which resolved with aspirin and nitroglycerin at that time the blood pressure was noted to be in the 200s which was in the setting of having held his antihypertensive due to low blood pressure readings in the doctor's office. He states he feels occasional palpitations but denied any syncope or dizziness. He feels tired. Previously has noted that his heart rate was in the 30s and the sensation of feeling to pass out and had been noted to have PVCs on telemetry and on EKG He was subsequently given a 30-day event monitor which she wore from 07/28/2023 to07/28/2023 to 08/27/2023 that showed both PACs and PVCs accounting for less than 1% of PVC burden and 3% PAC burden. there were episodes of nonsustained atrial tachycardia as noted on 07/30/2023 at 2:28 PM, 08/06/2023 at 5:33 PM and 07/31/2023 at 8 AM. there were numerous episodes of sinus rhythm with PACs no VT or A-fib was noted. patient has been noted to have elevated blood pressure readings and so missing both at increased hyperlucent to 50 mg twice daily. he feels markedly symptomatic when he tries to get up from sitting position indicative of orthostatic changes. he states that his symptoms are markedly worse after he has been placed on hydralazine. previously he was on bisoprolol 5 mg as well as amlodipine 10 mg along with losartan 100 once daily. at that time his blood pressure was noted to be low which caused her blood pressure medications to be altered. Last labs on 08/06/2023 at 5:30 PM and 07/31/2023 at 8 AM PMH: Past Medical History: Diagnosis Date Arrhythmia CKD (chronic kidney disease) stage 3, GFR 30-59 ml/min ([facility]) Diabetes 1.5, managed as type 2 ([facility]) HTN (hypertension) Hyperlipidemia NSVT (nonsustained ventricular tachycardia) ([facility]) Primary malignant neoplasm of duodenum ([facility]) PSH: Past Surgical History: Procedure Laterality Date CARDIAC CATHETERIZATION 07/27/2023 SH: Social Determinants of Health Tobacco Use: Medium Risk (09/15/2023) Patient History Smoking Tobacco Use: Former Smokeless Tobacco Use: Never Passive Exposure: Not on file Alcohol Use: Not on file Financial Resource Strain: Not on file Food Insecurity: Not on file Transportation Needs: Not on file Physical Activity: Not on file Stress: Not on file Social Connections: Not on file Intimate Partner Violence: Unknown (08/06/2023) [place] Safety & Environment Fear of Current or Ex-Partner: Not on file Emotionally Abused: Not on file Physically Abused: Not on file Sexually Abused: Not on file Physically or Sexually Abused: Not on file Depression: Not on file Housing Stability: Not on file Utilities: Not on file Allergies: Allergies Allergen Reactions Azithromycin Other Ciprofloxacin Other Lisinopril Cough Weight: 107kg Visit Vitals BP 130/84 (BP Location: Left arm, Patient Position: Sitting, BP Cuff Size: Adult) Pulse 96 Resp 13 Ht 1.778 m (5' 10 ) Wt 107 kg (235 lb) SpO2 94% BMI 33.72 kg/m Smoking Status Former BSA 2.3 m Meds: Current Outpatient Medications on File Prior to Visit Medication Sig Dispense Refill allopurinol (Zyloprim) 300 mg tablet Take 300 mg by mouth in the morning. aspirin 81 mg chewable tablet Chew 1 tablet (81 mg) in the morning. 90 tablet 3 empagliflozin (Jardiance) 25 mg Take 25 mg by mouth in the morning. fluticasone (Flonase) 50 mcg/actuation nasal spray Administer 2 sprays into each nostril in the morning. Shake gently. Before first use, prime pump. After use, clean tip and replace cap. furosemide (Lasix) 20 mg tablet Take 20 mg by mouth in the morning. glimepiride (Amaryl) 4 mg tablet Take 4 mg by mouth before breakfast. hydrALAZINE (Apresoline) 50 mg tablet Take 1 tablet (50 mg) by mouth in the morning and at bedtime. 180 tablet 3 losartan (Cozaar) 100 mg tablet Take 100 mg by mouth in the morning. omeprazole (PriLOSEC) [address] capsule Take 40 mg by mouth before breakfast. Do not crush or chew. rosuvastatin (Crestor) 10 mg tablet Take 2 tablets (20 mg) by mouth in the morning. 180 tablet 3 rosuvastatin (Crestor) 20 mg tablet Take 1 tablet (20 mg) by mouth in the morning. 90 tablet 3 tamsulosin (Flomax) 0.4 mg 24 hr capsule Take 1 capsule by mouth in the evening. [DISCONTINUED] bisoprolol (Zebeta) 10 mg tablet Take 1 tablet by mouth in the morning. [DISCONTINUED] amLODIPine (Norvasc) 10 mg tablet Take 10 mg by mouth in the morning. [DISCONTINUED] pioglitazone (Actos) 30 mg tablet Take 30 mg by mouth in the morning. No current facility-administered medications on file prior to visit. ROS: Cardio Basic Cardiovascular Symptoms: no lightheadedness, no leg edema, no syncope, no orthopnea, no PND, no claudication, Constitutional Constitutional: no fever, no night sweats, no significant weight gain, no significant weight loss, no exercise intolerance Eyes Eyes: no dry eyes, no irritation, no vision change ENMT Ears: no difficulty hearing, no ear pain Nose: no frequent nosebleeds, Mouth/Throat: no sore throat, no bleeding gums, no snoring, no dry mouth, no mouth ulcers, no oral abnormalities, no teeth problems Respiratory Respiratory: no cough, no wheezing, no coughing up blood, no sleep apnea Musculoskeletal Musculoskeletal: no muscle aches, no muscle weakness, joint pain+, no back pain, no swelling in the extremities Integumentary Skin no rash, no ulcer, no varicosities, no discoloration, no pruritus Neurologic Neurologic: no loss of consciousness, no weakness, no numbness, no seizures, no dizziness, no headaches Psychiatric Psych: no depression, feeling safe in relationship, no alcohol abuse, Hematologic/Lymphatic Hematologic/Lymphatic no swollen glands, no bruising Physical Exam: Constitutional General Appearance: well-nourished, well-developed, appears stated age Level of Distress: comfortable Psychiatric Mental Status: alert, normal affect Orientation: oriented to time, place, and person Insight: good judgement Eyes Lids and Conjunctivae: non-injected, no xanthelasma ENMT Ears: no lesions on external ear Nose: no lesions on external nose Oropharynx: no cyanosis, no pallor Neck Neck: supple, trachea midline Carotid Arteries: bilateral normal upstroke, no bruits Jugular Veins: normal jugular venous pressure Thyroid: not enlarged Lungs Respiratory Effort: unlabored Chest Exam: normal curvature, no thoracic deformity Auscultation: clear, no wheezing, no rales, no rhonchi Cardiovascular Rate And Rhythm: regular Heart Sounds: normal S1, normal s2, no gallop Systolic Murmur: not heard Diastolic Murmur: not heard Extremities: no cyanosis, no edema, no peripheral signs of emboli Peripheral Pulses Radial Pulse: normal Abdomen Inspection and Palpation: soft, non distended, no bruit, non tender Musculoskeletal Inspection: no joint swelling Neurologic Gait: normal gait Skin Inspection and Palpation: warm and dry Nails: no clubbing Labs: @LABRESULTS@ No results found for: CHOLESTEROL TOTAL , HDL , LDL CALC , LDL DIRECT , TRIGLYCERIDES , TSH , T3 TOTAL , T4 TOTAL , THYROID PEROXIDASE AB , BNP EKG: Encounter Date: 07/27/23 Electrocardiogram, 12-lead Result Value Ventricular Rate 62 Atrial Rate 62 HI Interval 204 QRS DURATION 108 QT Interval 440 QTC CALCULATION(BAZETT) 446 P [place] 26 R-[place] -24 T Wave [place] 28 Impression Normal sinus rhythm Moderate voltage criteria for LVH, may be normal variant ( R in aVL , [place] product ) Borderline ECG No previous ECGs available Confirmed by Mitzi ZAVALA SAMER J. ([id number]) on 07/27/2023 11:35:57 AM Cath 07/27/23 FINAL IMPRESSIONS: Mild coronary artery disease Normal [...] Follow-up with our cardiology office in the [facility] in the next 2 to 4 weeks 07/08/2023 TTE CONCLUSION: 1. Mild concentric left ventricular hypertrophy with normal systolic function.LVEF is 55 to 60%. 2. Normal right ventricular size and systolic function. 3. Mild to moderate biatrial dilatation. 4. Mild mitral regurgitation. 5. No pericardial effusion. 07/27/23 EKG Result Text IMPRESSION: Normal sinus rhythm Moderate voltage criteria for LVH, may be normal variant (R in aVL,[place] product) Borderline ECG No previous ECGs available Confirmed by Mitzi ZAVALA, KIM Serrato ([id number]) on 07/27/2023 11:35:57 AM Diagnostic Imaging: No images are attached to the encounter. Assessment and Plan: - palpitations - PVCs - PACs - nonsustained atrial tachycardia - diabetes mellitus type 2 - orthostatic hypotension - hypertension patient has A complicated history of having orthostatic changes in the setting of hypertension. Moreover he has not evidence of PVCs and PACs and although the burden is less he does feel symptomatic with that. At this stage advised him to come off the hydralazine and to restart the bisoprolol 5 mg twice daily and to log his blood pressure 3 times a day. I have also suggested that he undergo a tilt table test. given that his PVC and PAC burden is quite low but is difficult to consider taking for an EP lab for procedure. If beta-blockers alone is not able to control I would consider adding class Ic agent like flecainide given that his heart cath has been negative. Noe Knight MD Cardiac Electrophysiology [facility] documented in this encounter [facility] Work Phone: 09-15-2023 Note sleep [facility] 09-15-2023 Note [place] Electrophysiology Consult Note Reason for visit: PAC/PVC HPI: Yusef Car is a 73 y.o. year old with past medical history of syncope was previously seen by cardiology team including Yamilet [place] and ordered a stress test which was positive and also noted to have nonsustained VT. patient was therefore followed up with a cardiac catheterization which was performed on 07/27/[address] CELESTE. He had presented again with chest pain subsequently which resolved with aspirin and nitroglycerin at that time the blood pressure was noted to be in the 200s which was in the setting of having held his antihypertensive due to low blood pressure readings in the doctor's office. He states he feels occasional palpitations but denied any syncope or dizziness. He feels tired. Previously has noted that his heart rate was in the 30s and the sensation of feeling to pass out and had been noted to have PVCs on telemetry and on EKG He was subsequently given a 30-day event monitor which she wore from 07/28/2023 to07/28/2023 to 08/27/2023 that showed both PACs and PVCs accounting for less than 1% of PVC burden and 3% PAC burden. there were episodes of nonsustained atrial tachycardia as noted on 07/30/2023 at 2:28 PM, 08/06/2023 at 5:33 PM and 07/31/2023 at 8 AM. there were numerous episodes of sinus rhythm with PACs no VT or A-fib was noted. patient has been noted to have elevated blood pressure readings and so missing both at increased hyperlucent to 50 mg twice daily. he feels markedly symptomatic when he tries to get up from sitting position indicative of orthostatic changes. he states that his symptoms are markedly worse after he has been placed on hydralazine. previously he was on bisoprolol 5 mg as well as amlodipine 10 mg along with losartan 100 once daily. at that time his blood pressure was noted to be low which caused her blood pressure medications to be altered. Last labs on 08/06/2023 at 5:30 PM and 07/31/2023 at 8 AM PMH: Past Medical History: Diagnosis Date Arrhythmia CKD (chronic kidney disease) stage 3, GFR 30-59 ml/min ([facility]) Diabetes 1.5, managed as type 2 ([facility]) HTN (hypertension) Hyperlipidemia NSVT (nonsustained ventricular tachycardia) ([facility]) Primary malignant neoplasm of duodenum ([facility]) PSH: Past Surgical History: Procedure Laterality Date CARDIAC CATHETERIZATION 07/27/2023 SH: Social Determinants of Health Tobacco Use: Medium Risk (09/15/2023) Patient History Smoking Tobacco Use: Former Smokeless Tobacco Use: Never Passive Exposure: Not on file Alcohol Use: Not on file Financial Resource Strain: Not on file Food Insecurity: Not on file Transportation Needs: Not on file Physical Activity: Not on file Stress: Not on file Social Connections: Not on file Intimate Partner Violence: Unknown (08/06/2023) [place] Safety & [place] Fear of Current or Ex-Partner: Not on file Emotionally Abused: Not on file Physically Abused: Not on file Sexually Abused: Not on file Physically or Sexually Abused: Not on file Depression: Not on file Housing Stability: Not on file Utilities: Not on file Allergies: Allergies Allergen Reactions Azithromycin Other Ciprofloxacin Other Lisinopril Cough Weight: 107kg Visit Vitals BP 130/84 (BP Location: Left arm, Patient Position: Sitting, BP Cuff Size: Adult) Pulse 96 Resp 13 Ht 1.778 m (5' 10 ) Wt 107 kg (235 lb) SpO2 94% BMI 33.72 kg/m??? Smoking Status Former BSA 2.3 m??? Meds: Current Outpatient Medications on File Prior to Visit Medication Sig Dispense Refill allopurinol (Zyloprim) 300 mg tablet Take 300 mg by mouth in the morning. aspirin 81 mg chewable tablet Chew 1 tablet (81 mg) in the morning. 90 tablet 3 empagliflozin (Jardiance) 25 mg Take 25 mg by mouth in the morning. fluticasone (Flonase) 50 mcg/actuation nasal spray Administer 2 sprays into each nostril in the morning. Shake gently. Before first use, prime pump. After use, clean tip and replace cap. furosemide (Lasix) 20 mg tablet Take 20 mg by mouth in the morning. glimepiride (Amaryl) 4 mg tablet Take 4 mg by mouth before breakfast. hydrALAZINE (Apresoline) 50 mg tablet Take 1 tablet (50 mg) by mouth in the morning and at bedtime. 180 tablet 3 losartan (Cozaar) 100 mg tablet Take 100 mg by mouth in the morning. omeprazole (PriLOSEC) [address] capsule Take 40 mg by mouth before breakfast. Do not crush or chew. rosuvastatin (Crestor) 10 mg tablet Take 2 tablets (20 mg) by mouth in the morning. 180 tablet 3 rosuvastatin (Crestor) 20 mg tablet Take 1 tablet (20 mg) by mouth in the morning. 90 tablet 3 tamsulosin (Flomax) 0.4 mg 24 hr capsule Take 1 capsule by mouth in the evening. [DISCONTINUED] bisoprolol (Zebeta) 10 mg tablet Take 1 tablet by mouth in the morning. [DISCONTINUED] amLODIPine (Norvasc) 10 mg tablet Take 10 mg by mouth in the morning. [DISCONTINUED] pioglitazone (Actos) 30 mg tablet Take 30 mg by mo (more content not included)... [facility] 08-25-2023 Note states pt's b/p has remained > 130/80 therefore will increase hydralazine to 50 mg po bid. Continue to monitor b/p and call office if B/P remains elevated. Staff to call pt and notify him of recommendations. RTC as scheduled [facility] 08-18-2023 Note Stop bisprolol- no b eta blockers at this time [facility] 08-18-2023 Note D/W that he may bene fit from seeing a company dancer for DM, adrenal mass [facility] 08-18-2023 Note F/U with Dr Knight [facility] 08-18-2023 Note [facility] Currently stable, no further episode noted [facility] 08-18-2023 Note Finish event monitor and f/U with EP Dr Knight [facility] 08-18-2023 Note Hypertension is cont rolled today with outliers noted on B/P Log- In light of bradycardia with PVCs/bigemeny, fatigue will stop bisprolol and start hydralazine for HTN management. D/W pt goal b/p is < 130/80 and to call office for concerns and may need to adjust dose in future. Continue all other meds [facility] 08-18-2023 Note Patient here for fol low up cath performed on 07/27/[address] Armstrong. He presented to [facility] ED a few days later for chest pain. Said his BP was 203 systolic this past Thursday. Dr. Ayala advised him to hold amlodipine for now due to hypotension in his office. Still wearing 30 day event monitor. Denies SOB and recurrent syncope. Review of Systems Cardiovascular: Positive for chest pain and palpitations. All other systems reviewed and are negative. 07/08/2023 TTE CONCLUSION: 1. Mild concentric left ventricular hypertrophy with normal systolic function. LVEF is 55 to 60%. 2. Normal right ventricular size and systolic function. 3. Mild to moderate biatrial dilatation. 4. Mild mitral regurgitation. 5. No pericardial effusion. [facility] 08-18-2023 Note [facility] CARDIOLOGY PROGR ESS NOTE HPI: Yusef Car is a 73 y.o. male here for f/U after recent cardiac cath HPI 73 yo male presents today for f/U after recent admission to [facility] for syncope and collapse, abnormal stress test and NSVT. Patient here for follow up cath performed on 07/27/[address] Armstrong. He presented to [facility] ED a few days later for chest pain upper abdomen into mid chest that resolved with ASA and NTG. Said his BP was 203 systolic this past Thursday[address] Dr. Ayala advised him to hold amlodipine for now due to hypotension in his office. Still wearing 30 day event monitor. Denies SOB and recurrent syncope. Admits feeling palpitations at times, and denied any dizziness or syncope. Admits generalize fatigue and states I could take a nap right now. Review of Systems Cardiovascular: Positive for chest pain and palpitations. All other systems reviewed and are negative. In pt consult HPI per myself- 73-year-old male to the emergency department with [...] orthopnea, palpitations, lightheadedness, dizziness or syncope today. Visit Vitals BP 140/76 (BP Location: Left arm, Patient Position: Sitting) Pulse 70 Ht 1.778 m (5' 10 ) Wt 108 kg (239 lb) SpO2 98% BMI 34.29 kg/m??? BSA 2.31 m??? Allergies Allergen Reactions Azithromycin Other Ciprofloxacin Other Lisinopril Cough Medications: Current Outpatient Medications on File Prior to Visit Medication Sig Dispense Refill allopurinol (Zyloprim) 300 mg tablet Take 300 mg by mouth in the morning. aspirin 81 mg chewable tablet Chew 1 tablet (81 mg) in the morning. 90 tablet 3 empagliflozin (Jardiance) 25 mg Take 25 mg by mouth in the morning. fluticasone (Flonase) 50 mcg/actuation nasal spray Administer 2 sprays into each nostril in the morning. Shake gently. Before first use, prime pump. After use, clean tip and replace cap. furosemide (Lasix) 20 mg tablet Take 20 mg by mouth in the morning. glimepiride (Amaryl) 4 mg tablet Take 4 mg by mouth before breakfast. losartan (Cozaar) 100 mg tablet Take 100 mg by mouth in the morning. omeprazole (PriLOSEC) [address] capsule Take 40 mg by mouth before breakfast. Do not crush or chew. rosuvastatin (Crestor) 10 mg tablet Take 2 tablets (20 mg) by mouth in the morning. 180 tablet 3 tamsulosin (Flomax) 0.4 mg 24 hr capsule Take 1 capsule by mouth in the evening. [DISCONTINUED] bisoprolol (Zebeta) 10 mg tablet Take 10 mg by mouth in the morning. amLODIPine (Norvasc) 10 mg tablet Take 10 mg by mouth in the morning. pioglitazone (Actos) 30 mg tablet Take 30 mg by mouth in the morning. No current facility-administered medications on file prior to visit. Physical Exam: Constitutional: Appearance: Normal appearance. Without apparent distress, obese HENT: Head: Normocephalic and atraumatic. Nose: Nose normal. Mouth/Throat: Mouth: Mucous membranes are moist. Eyes: Extraocular Movements: Extraocular movements intact. Conjunctiva/sclera: Conjunctivae normal. Neck: Vascular: No JVD. Cardiovascular: Rate and Rhythm: Normal rate and regular rhythm. Noted PVCs Pulses: Radial, Dorsalis pedis pulses are 3 on the right side and 3on the left side. Posterior tibial pulses are 3 on the right side and 3 on the left side. Rt radial and rt neck sites C/D/I without erythema, hematoma, ecchymosis or bruit noted Heart sounds: Normal heart sounds, S1 normal and S2 normal. Pulmonary: Effort: Pulmonary effort is normal. Breath sounds: Normal breath sounds. Abdominal: General: Bowel sounds are normal. Palpations: Abdomen is soft. Musculoskeletal: General: Normal range of motion. Cervical back: Normal range of motion. Right lower leg: No edema. Left lower leg: No edema. Skin: General: Skin is warm and dry. Capillary Refill: Capillary refill takes less than 2 seconds. Neurological: General: No focal deficit present. Mental Status: he is alert and oriented to person, place, and time. Psychiatric: Mood and Affect: Mood normal. Behavior: Behavior normal. Thought Content: Thought content normal. Judgment: Judgment normal. Labs: Last lab values have been reviewed CBC- stable 07/09/23 07/10/23 Range/Units 21:30 04:27 WBC 10.3 9.1 (4.0-11.0) 10^3/uL Hgb 12.4 L 11.8 L (14.0-18.0) g/dL Hct 39.7 L 37.0 L (42.0-54.0) % Plt Count 377 324 (150-450) 10^3/uL BMP- renal function stable 07/09/23 07/10/23 21:30 04:27 Sodium 142 141 Potassium 4.6 4.3 Chloride 108 H 110 H Carbon Dioxide 24.5 23.0 BUN 25.0 H 28.0 H Creat (more content not included)... [facility] 07-27-2023 Note Cardiovascular Labor atory Report FINAL [...] Follow-up with our cardiology office in the [facility] in the next 2 to 4 [...] internal jugular vein was obtained. A 6 Portuguese 11 cm sheath was inserted without difficulty. [...] left radial artery was obtained. A 6 Portuguese glide sheath was inserted without difficulty. Bilateral [...] INDICATIONS: Nonsustained ventricular tachycardia, abnormal stress test [facility] 07-10-2023 Note Frequent PVCs, bigemeny, [facility] Note 4 beat NSVT noted on treadmill stress test- ordered cardiac cath for further ischemia evaluation with recent near syncope, abnormal EKG and stress test, chest pain [facility] 07-10-2023 Note Recently admitted to [facility] for near syncope, bradycardia, abnormal stress test with NSVT while on treamill. Frequent PVCS [facility] 06-10-2023 Hospital Discharge instructions Sam Mcrae MD - 06/10/2023 9:18 AM EST Patient [...] having your procedure, call the [facility] to be advised whether a visit to [...] or looks infected. documented in this encounter [facility] Work Phone: 06-10-2023 Miscellaneous Notes Patient: Yusef Car Pre-sedation Evaluation: Sedation necessary for: Immobility and Analgesia Requesting service: GI History of Present Illness: H/o duodenal NET Past Medical History: Diagnosis Date Diabetes mellitus ([facility]) Hyperlipidemia Hypertension Principle problems: Patient Active Problem List Diagnosis Date Noted Primary malignant neuroendocrine neoplasm of duodenum (CMS/HCC) 04/28/2023 Allergies: Allergies Allergen Reactions Ciprofloxacin Other TIA Erythromycin GI bleeding Lisinopril Cough FACILITIES PROJECT MANAGER/Current Medications: (Not in a hospital admission) Current [...] and P ) documented in this encounter [facility] Work Phone: 06-10-2023 Note Formatting of this n ote is different from the original. Patient: Yusef Car Pre-sedation Evaluation: Sedation necessary for: Immobility and Analgesia Requesting service: GI History of Present Illness: H/o duodenal NET Past Medical History: Diagnosis Date Diabetes mellitus ([facility]) Hyperlipidemia Hypertension Principle problems: Patient Active Problem List Diagnosis Date Noted Primary malignant neuroendocrine neoplasm of duodenum (CMS/HCC) 04/28/2023 Allergies: Allergies Allergen Reactions Ciprofloxacin Other TIA Erythromycin GI bleeding Lisinopril Cough FACILITIES PROJECT MANAGER/Current Medications: (Not in a hospital admission) Current [...] (This is my H and P ) [facility] Work Phone: 06-10-2023 Note Formatting of [...] Other TIA Erythromycin GI bleeding Lisinopril Cough FACILITIES PROJECT MANAGER/Current Medications: (Not in a hospital admission) Current [...] (This is my H and P ) [facility] Work Phone: 01-10-2021 Chief complaint Narrative - Reported An interactive audio and video telecommunication system which permits real time communications between the patient (at the originating site) and provider (at the distant site) was utilized to provide this telehealth service.Verbal consent was requested and obtained from YUSEF CAR on this date, 01/10/2021 09:30 AM , for a telehealth visit.Duodenal neuroendocrine tumor [facility] Work Phone: 11-28-2020 History of Present illness Narrative 70-year-old man referred to me from Dr. Johansen for duodenal well-differentiated neuroendocrine tumor. He underwent EGD on 11/28/2020 at the [facility] in [facility] for a longstanding history of gastroesophageal [...] alcohol, no illicit drug useHe is retired [facility] Work Phone: 11-28-2020 History of Present illness Narrative 70-year-old man with duodenal well-differentiated neuroendocrine tumor. He underwent EGD on 11/28/2020 at the [facility] in [facility] for a longstanding history of gastroesophageal [...] visit with the patient and his . [facility] Work Phone: Evaluation note Diagnosis Primary malignant neuroendocrine neoplasm of duodenum (CMS/HCC) documented in this encounter [facility] Work Phone: Evaluation note* Diagnosis Primary malignant neuroendocrine neoplasm of duodenum (CMS/HCC) documented in this encounter [facility] Work Phone: Evaluation note* Diagnosis Primary malignant neuroendocrine neoplasm of duodenum (CMS/HCC)- Primary documented in this encounter [facility] Work Phone: Evaluation note* Diagnosis Primary hypertension (CMS/HCC)- Primary Unspecified essential hypertension documented in this encounter [facility] [employer]Evaluation note* Diagnosis Exam for clinical trial Examination of participant in clinical trial documented in this encounter [employer] Phone: evaluation note* Diagnosis Stage 3a chronic kidney disease (HCC) (CMS/HCC)- Primary Type 2 diabetes mellitus with stage 3a chronic kidney disease, without long-term current use of insulin (HCC) (CMS/HCC) documented in this encounter [employer]* Diagnosis Primary malignant neuroendocrine neoplasm of duodenum (Multi)- Primary documented in this encounter [facility] Work Phone: Evaluation note* Diagnosis 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 CAR is a 71 year old male with a personal history of duodenal neuroendocrine cancer. 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 CAR is of Armenian and Togolese descent. There is no known Ashkenazi Zoroastrian ancestry. Consanguinity was denied. No genetic testing has been done in the family before. [employer] Work Phone: History of Present illness NarrativePlease see previous genetics note.[employer] Work Phone: Summary Purpose Family History No [...] abdomen pelvis w IV contrast Jazlyn Mcarthur SNAKER TRACTOR DRIVER-AIR CONDITIONING UNIT TESTER [address] [address] [facility] [place] [address] Referral ID Status Reason Start Date Expiration Date Visits Requested Visits Authorized [id number] Pending Review Perform Procedure 05/19/2023 05/18/2024 1 1 Specialty Diagnoses / Procedures Referred By Contact Referred To Contact Gastroenterology Diagnoses Primary malignant neuroendocrine neoplasm of duodenum (CMS/HCC) Procedures EGD HI ESOPHAGOGASTRODUODENOSCOPY TRANSORAL DIAGNOSTIC HI EGD TRANSORAL BIOPSY SINGLE/MULTIPLE Jazlyn Mcarthur SNAKER TRACTOR DRIVER-AIR CONDITIONING UNIT TESTER [address] [address] [facility] [place] [address] Referral ID Status Reason Start Date Expiration Date V isits Requested Visits Authorized [id number] Pending Review 05/19/2023 05/18/2024 1 1 Specialty Diagnoses / Procedures Referred By Contdarnell t Referred To Contact Radiology Diagnoses Exam for clinical trial Procedures US COMPARISON OF OUTSIDE FILMS Grace Justice PA-C [address] [place] [address] Referral ID Status Reason Start Date Expiration Date V isits Requested Visits Authorized [id number] Pending Review 07/28/2023 07/27/2024 1 1 Specialty Diagnoses / Procedures Referred By Contac t Referred To Contact Gastroenterology Diagnoses Primary malignant neuroendocrine neoplasm of duodenum (Multi) Procedures Endoscopic Ultrasound (Upper) [place] [address] [facility] [address] [place] [address] Referral ID Status Reason Start Date Expiration Date V isits Requested Visits Authorized [id number] Pending Review 06/29/2023 06/28/2024 1 1 Specialty Diagnoses / Procedures Referred By Contac t Referred To Contact Radiology Diagnoses Bilateral renal cysts Adrenal adenoma, left Procedures MRI ABDOMEN W WO CONTRAST Grace Justice PA-C [address] [place] [address] Referral ID Status Reason Start Date Expiration Date Visits Re quested Visits Authorized [id number] Closed 11/30/2023 12/07/2024 1 1 Additional Source Comments (unrecognized sect ion and content) No Status Records FoundNo Status Records FoundNo Status Records FoundNo Status Records FoundNo Status Records FoundNo Status Records FoundNo Status Records FoundNo Status Records FoundNo Status Records FoundNo Status Records FoundNo Status Records FoundNo Status Records Found INFORMATION SOURCE (unrecogn ized section and content) DATE CREATED AUTHOR 10/12/2018 [facility] DATE CREATED AUTHOR AUTHOR'S ORGANIZ ATION 06/13/2021 [facility] DATE CREATED AUTHOR AUTHOR'S ORGANIZ ATION 12/06/2021 [employer] DATE CREATED AUTHOR AUTHOR'S ORGANIZ ATION 05/14/2022 [facility] DATE CREATED AUTHOR AUTHOR'S ORGANIZ ATION 09/17/2022 [facility] DATE CREATED AUTHOR AUTHOR'S ORGANIZ ATION 07/31/2023 [facility] DATE CREATED AUTHOR AUTHOR'S ORGANIZ ATION 08/02/2023 [facility] DATE CREATED AUTHOR AUTHOR'S ORGANIZ ATION 12/08/2023 [facility] DATE CREATED AUTHOR AUTHOR'S ORGANIZ ATION 01/04/2024 [facility] DATE CREATED AUTHOR AUTHOR'S ORGANIZ ATION 01/06/2024 [facility] DATE CREATED AUTHOR AUTHOR'S ORGANIZ ATION 01/13/2024 [facility] DATE CREATED AUTHOR AUTHOR'S ORGANIZ ATION 01/24/2024 [facility] Reason for Visit (unrecogniz ed section and content) Specialty Diagnoses / Procedures Referred By Contac t Referred To Contact Radiology Diagnoses Primary malignant neuroendocrine neoplasm of duodenum (CMS/HCC) Procedures CT chest abdomen pelvis w IV contrast SammiefloridalmaJazlyn lowe Abdirahman, SNAKER TRACTOR DRIVER-AIR CONDITIONING UNIT TESTER [address] [address] [facility] Oncology [place] [id number] Referral ID Status Reason Start Date Expiration Date Visits Requested Visits Authorized [id number] Pending Review Perform Procedure 05/19/2023 05/18/2024 1 1 Specialty Diagnoses / Procedures Referred By Contact Referred To Contact Gastroenterology Diagnoses Primary malignant neuroendocrine neoplasm of duodenum (CMS/HCC) Procedures EGD HI ESOPHAGOGASTRODUODENOSCOPY TRANSORAL DIAGNOSTIC HI EGD TRANSORAL BIOPSY SINGLE/MULTIPLE Sammiesam Jazlyn N, SNAKER TRACTOR DRIVER-AIR CONDITIONING UNIT TESTER [address] [facility] Oncology [place] [phone] Referral ID Status Reason Start Date Expiration Date V isits Requested Visits Authorized [id number] Pending Review 05/19/2023 05/18/2024 1 1 Reason Comments New Med Request Specialty Diagnoses / Procedures Referred By Contac t Referred To Contact Radiology Diagnoses Exam for clinical trial Procedures US COMPARISON OF OUTSIDE FILMS Grace Justice PA-C [address] [address] Referral ID Status Reason Start Date Expiration Date V isits Requested Visits Authorized [id number] Pending Review 07/28/2023 07/27/2024 1 1 Specialty Diagnoses / Procedures Referred By Contac t Referred To Contact Gastroenterology Diagnoses Primary malignant neuroendocrine neoplasm of duodenum (Multi) Procedures Endoscopic Ultrasound (Upper) [place] [address] [facility] [address] [place] [address] Referral ID Status Reason Start Date Expiration Date V isits Requested Visits Authorized [id number] Pending Review 06/29/2023 06/28/2024 1 1 Specialty Diagnoses / Procedures Referred By Contac t Referred To Contact Radiology Diagnoses Bilateral renal cysts Adrenal adenoma, left Procedures MRI ABDOMEN W WO CONTRAST Grace Justice PA-C [address] [facility] [address] [place] [address] Referral ID Status Reason Start Date Expiration Date Visits Re quested Visits Authorized [id number] Closed 11/30/2023 12/07/2024 1 1 Care Teams (unrecognized sec tion and content) Manager Building Relationship Specialty Start Date End Date Renea Ying DO [address] [place] [address] PCP - General Family Medicine 05/26/23 Manager Building Relationship Specialty Start Date End Date Renea Ying DO [address] [place] [address] PCP - General Family Medicine 05/26/23 Manager Building Relationship Specialty Start Date End Date Renea Ying DO [address] [place] [address] PCP - General Family Medicine 05/26/23 Manager Building Relationship Specialty Start Date End Date Shaikh Ayala MD [address] [facility] [place] [address] PCP - General Internal Medicine 07/15/23 Manager Building Relationship Specialty Start Date End Date Shaikh Ayala MD [address] [place] [address] PCP - General Internal Medicine 07/15/23 Manager Building Relationship Specialty Start Date End Date Renea Ying DO [address] [place] [address] PCP - General Family Medicine 05/26/23 [place] [address] [place] [address] Consulting Physician Hematology and Oncology 06/15/23 Manager Building Relationship Specialty Start Date End Date Shaikh Ayala MD [address] [place] [address] PCP - General 07/31/23 Manager Building Relationship Specialty Start Date End Date Shaikh Ayala MD [address] [place] [address] PCP - General 07/31/23 FOR RECORDS PERTAINING TO PATIENTS WHO ARE [...] BE BASED ON THE PRIMARY CLINICAL RECORDS. [facility]. provides no warranty or guarantee of the accuracy or completeness of information in this document.
[2024-02-03 10:10] LABS: Estimated Average Glucose 151 mg/dL; Glycohemoglobin A1C 6.9 % (4.5-6.2)
== END 2024-02-03 09:15 | disposition home or self-care (01) ==
LOC: LAB 09:15
PROVIDERS: PCP Internal Medicine; Visit Provider Internal Medicine
DX: E11.22 Type 2 diabetes mellitus with diabetic chronic kidney disease (principal); N18.31 Chronic kidney disease, stage 3a
CPT/HCPCS: 36415; 83036

== ENCOUNTER 2024-04-14 08:11 | Outpatient (OUT) | payer MEDICARE, OTHER, SELFPAY ==
--- OUTSIDE RECORDS SUMMARY | 2024-04-14 08:21 | XMS_ITS | CCD ---
Author Organization [facility] Care Team Providers Care Seasonal Package Handler Name Role Phone PHYSICIAN, DEFAULT Admitting Unavailable PHYSICIAN, DEFAULT Attending Unavailable Vanessa Steele Unavailable Unavailable Unavailable CEDRIC, DR MENDEZ Primary Care Unavailable DONNA, DR HURLEY Consulting Unavailable DONNA, DR HURLEY Procedure Practitioner Unava ilable SHAIKH AYALA Admitting Unavailable SHAIKH AYALA Attending Unavailable ROS, DR CINDI Ackerman Consulting Unavailable PAY, DR MCKINNON Consulting Unavailable RACHEAL ROSAS Consulting Unavailable CINDI RYAN Consulting Unavailable FASHAIKH REYNOLDS Consulting Unavailable GEOVANNAILLIAgapito, DR HURLEY Consulting Unavailable DONNA, DR HURLEY Admitting Unavailable DONNA, DR HURLEY Attending Unavailable MIQUEL HAWKINS Primary Care Unavailable CEDRIC, DR MENDEZ Attending Unavailable CEDRIC, DR MENDEZ Admitting Unavailable DANIEL, DR MARCELLO Charles Consulting Unavailable CEDRIC, DR MENDEZ Primary Care Unavailable CEDRIC, DR MENDEZ Consulting Unavailable MIQUEL HAWKINS Primary Care Unavailable DONNA, DR HURLEY Consulting Unavailable DONNA, DR HURLEY Admitting Unavailable GEOVANNAILLIAgapito, DR HURLEY Attending Unavailable CONCEPCION GEORGE Consulting Unavailable ROSIPISAAC, MIQUEL Consulting Unavailable Benson, Dr. Neftali Cormier [...] Stepan DO, Renea G Primary Care Provider Jamie HERNANDEZ, [facility] Primary Care Provider [phone] Unavailable Primary Care Provider UnavailMaribeth Celeste Attending Unavailable STEPAN, RENEA Referring Unavailable Neftali Knowles MD Unavailable Jamie HERNANDEZ, [facility] Provider KASHIF JUSTICELE D Referring Unavailable [facility] Primary Care Unavailable DORKOSKIE, GRACE D Referring Unavailable [facility] Primary Care Unavailable DORKOSKIE, GRACE D Referring Unavailable [facility] Primary Care Unavailable [facility] Primary Care Unavailable NEFTALI KNOWLES Attending Unavailable MURUMBA, JAZLYN N Referring Unavailable STEPAN, RENEA G Primary Care Unavailable ELTAHAWY, EHAB Referring Unavailable ELTAHAWY, EHAB Admitting Unavailable ELTAHAWY, EHAB Attending Unavailable NOE KNIGHT Referring Unavailable NOE KNIGHT Attending Unavailable LATANYA CLEVELAND Attending Unavailable NOE KNIGHT Attending Unavailable MURUMBA, JAZLYN N Referring Unavailable [facility] Primary Care Unavailable CHOWDHRY, SAM Attending Unavailable MURUMBA, JAZLYN N Referring Unavailable STEPAN, RENEA G Primary Care Unavailable DINARY, FAZEL Attending Unavailable CHOWDHRY, SAM Referring Unavailable [facility] Primary Care Unavailable DINARY, FAZEL Attending Unavailable DINARY, FAZEL Referring Unavailable [facility] Primary Care Unavailable NEFTALI KNOWLES Referring [facility]available [facility] Care Unavailable Jamie HERNANDEZ, [facility] Primary Care Provider Stepan DO, Renea G Unavailable En HOBBS, Miriam Unavailable [phone] RENEA YING Attending Unavailable JAMIE, Attending Unavailable JAMIE, Attending Unavailable JAMIE, Attending Unavailable JAMIE, Attending Unavailable NEFTALI STARR Attending Unavailab liang AYALA, Attending Unavailable MIRIAM GATICA Attending UnavailJENNIFFER Mcclain Attending Unavailable MIRIAM GATICA Referring UnavailJENNIFFER Mcclain Referring Unavailable Gerald Low MD Primary Care Provider [phone] Allergies Allergy Classification Reported Allergen(s) Allergy Type Date of Onset Reaction(s) Facility Angiotensin Converting Enzyme (GODWIN) Inhibitors (4 sources) Lisinopril; Translations: [Lisinopril TABS] Drug Allergy 2 Cough [id number] [facility] Work Phone: Macrolides (antibiotic) (1 source) Erythromycin Drug Allergy 3 Other (See Comments) [facility] Work Phone: Quinolones (antibiotic) (4 sources) Ciprofloxacin; Translations: [ciprofloxacin] Drug Allergy 3 Other (See Comments) [facility] (20 sources) Ciprofloxacin; Translations: [ciprofloxacin] Drug Allergy 3 Unknown, Other, Other (See Comments) [facility] (16 sources) Lisinopril; Translations: [Lisinopril TABS] Drug Allergy 2 Unknown, Cough [facility] 450 DO Work Phone: (4 sources) Amino Acids; Translations: [LISINOPRIL] Drug Allergy 1 [facility] (1 source) Ciprofloxacin Drug Allergy [facility] (1 source) Erythromycin Drug Allergy [facility] (14 sources) Erythromycin; Translations: [ERYTHROMYCIN] Drug Allergy 3 Unknown, GI bleeding, Other (See Comments), GI intolerance, Other [facility] Work Phone: (9 sources) Azithromycin; Translations: [AZITHROMYCIN] Drug Allergy 8 [facility] (8 sources) Lisinopril Allergy to substance 3 Cough [facility] Medications Current Medications Medication Drug Class(es) Dates Sig (Normalized) Sig (Original) allopurinol 300 mg oral tablet (20 sources) Xanthine Oxidase Inhibitor Start: 09-17-2020 End: 04-12-2024 allopurinol (Zyloprim) 300 MG tablet 02/29/2024 Active Allopurinol 300 MG Oral Tablet Quantity: [...] DO Active aspirin 81 mg chewable tablet (6 sources) Platelet Aggregation Inhibitor, Nonsteroidal Anti-inflammatory Drug Start: 07-27-2023 End: 07-26-2024 aspirin 81 MG chewable tablet Chew 81 mg Daily 07/27/2023 04/12/2024 Discontinued (Discontinued by another clinician) take 1 tablet by mouth once danielle y aspirin 81 mg EC tablet Take 1 tablet (81 mg) by mouth once daily. Active bisoprolol fumarate 5 mg oral tablet (20 sources) beta-Adrenergic Janet Start: 04-02-2024 End: 04-12-2024 bisoprolol (Zebeta) 5 MG tablet 04/02/2024 04/12/2024 Discontinued (Duplicate order) Start: 07-10-2023 End: 10-27-2023 bisoprolol (Zebeta) 10 MG ta blet Indications: Primary hypertension (CMS/HCC) TAKE 1 TABLET IN THE MORNING 90 tablet 3 10/14/2023 Active take 1 tablet by victor manuel th once daily bisoprolol (Zebeta) 5 mg tablet Take 1 tablet (5 mg) by mouth once daily. Active take 1 tablet by victor manuel th twice daily bisoprolol (Zebeta) 5 mg tablet Take [...] Indications: Stage 3a chronic kidney disease (HCC) ([facility]) Take 1 tablet (10 mg) by mouth in the morning. 90 tablet 0 07/20/2023 07/30/2023 Discontinued (Cost of medication) empagliflozin 25 mg oral tablet (9 sources) Sodium-Glucose Cotransporter 2 Inhibitor Start: 02-23-2024 End: 08-21-2024 take 1 tablet by mouth once daily empagliflozin (Jardiance) 25 MG Indications: Stage 3a chronic kidney disease (HCC) ([facility]/HCC) , Type 2 diabetes mellitus with stage 3a chronic kidney disease, without long-term current use of insulin (HCC) ([facility]) Take 1 tablet (25 mg) by mouth Daily 90 tablet 1 02/23/2024 08/21/2024 Active Start: 07-30-2023 End: 10-28-2023 take 1 tablet by mouth once daily empagliflozin (JARDIANCE) 25 MG tablet Take 1 tablet by mouth daily 0 07/30/2023 Active fluticasone propionate 0.05 mg/actuat metered dose nasal spray (10 sources) Corticosteroid Start: 09-17-2020 fluticasone (F LONASE) 50 MCG/ACT nasal spray 2 sprays daily 0 09/17/2020 Active take 2 spray(s) nasa l route in the morning fluticasone (Flonase) 50 MCG/ACT nasal spray Administer 2 sprays into each nostril in the morning. Active fluticasone propionate (Armo Echols Digihaler) 55 [...] (20 sources) Loop Diuretic Start: 10-07-2020 End: 10-09-2024 take 1 tablet by mouth once daily furosemide (Lasix) 20 MG tablet Indications: Primary hypertension (CMS/HCC) Take 1 tablet (20 mg) by mouth Daily 90 tablet 1 04/12/2024 10/09/2024 Active Furosemide 20 MG Oral Tablet Quantity: 0 Refills: 0 Ordered: 08-Jan-2021 DO Active glimepiride 4 mg oral tablet (20 sources) Sulfonylurea Start: 10-07-2020 End: 10-09-2024 take 1 tablet by mouth before mealtime glimepiride (Amaryl) 4 MG tablet Indications: Type 2 diabetes mellitus with stage 3a chronic kidney disease, without long-term current use of insulin (HCC) (CMS/HCC) Take 1 tablet (4 mg) by mouth in the morning. Take before meals. 90 tablet 1 04/12/2024 10/09/2024 Active take 1 tablet by mouth twice [...] sources) Angiotensin 2 Receptor Janet Start: 09-17-2020 End: 10-09-2024 take 1 tablet by mouth once daily losartan (Cozaar) 100 MG tablet Indications: Primary hypertension (CMS/HCC) Take 1 tablet (100 mg) by mouth Daily 90 tablet 1 04/12/2024 10/09/2024 Active Losartan Potassi um 100 MG Oral Tablet Quantity: 0 Refills: 0 Ordered: 08-Jan-2021 DO Active omeprazole 40 mg delayed release oral capsule (20 sources) Proton Pump Inhibitor Start: 01-23-2021 End: 04-12-2024 take 1 capsule by mouth before mealtime omeprazole (PriLOSEC) [address] capsule Indications: Gastroesophageal reflux disease without esophagitis Take 1 capsule (40 mg) by mouth in the morning. Take before meals. Do not crush or chew.. 90 capsule 04/12/2024 Active Start: 11-01-2020 take 1 capsule by mo uth once daily before breakfast omeprazole (PRILOSEC) 40 MG delayed release capsule Take 1 capsule by mouth every morning (before breakfast) 0 11/01/2020 Active Omeprazole 10 MG Oral Capsule Delayed Release Quantity: 0 Refills: 0 Ordered: 08-Jan-2021 DO Active pantoprazole 40 mg delayed release oral tablet (4 sources) Proton Pump Inhibitor Start: 10-07-2023 End: 04-12-2024 take 1 tablet by mouth in the morning pantoprazole (ProtoNix) 40 MG EC tablet Take 40 mg by mouth in the morning and 40 mg in the evening. 10/07/2023 04/12/2024 Discontinued (Discontinued by another clinician) pioglitazone 30 mg oral tablet (20 sources) Peroxisome Proliferator Receptor alpha Agonist, Peroxisome Proliferator Receptor gamma Agonist, Thiazolidinedione End: 10-07-2023 take 1 tablet by mouth once daily pioglitazone (ACTOS) 30 MG tablet Take 1 tablet by mouth daily 0 Active Pioglitazone HCl - 30 MG Oral Tablet Quantity: 0 Refills: 0 Ordered: 08-Jan-2021 DO Active rosuvastatin calcium 20 mg oral tablet (20 sources) HMG-CoA Reductase Inhibitor Start: 04-12-2024 End: 04-12-2025 take 1 tablet by mouth once daily rosuvastatin (Crestor) 20 MG tablet Indications: Mixed hyperlipidemia (CMS/HCC) Take 1 tablet (20 mg) by mouth Daily 04/12/2024 04/12/2025 Active Start: 12-10-2022 End: 04-12-2024 take 1 tablet by mouth in the morning rosuvastatin (Crestor) 10 MG tablet Indications: Mixed hyperlipidemia (CMS/HCC) Take 1 tablet (10 mg) by mouth in the morning. 90 tablet 3 12/10/2022 04/12/2024 Discontinued (Discontinued by another clinician) Start: 09-17-2020 End: 07-26-2024 take 2 tablets [...] Active tamsulosin hydrochloride 0.4 mg oral capsule (9 sources) alpha-Adrenergic Janet Start: 07-31-2023 take 1 [...] Irwin Batista MD Start : 23-Jan-2021 Active 5 ml bupivacaine hydrochloride 5 mg/ml injection (4 sources) Amide Local Anesthetic Start: 04-13-2024 End: 04-13-2024 bupivacaine PF (Marcaine) 0.5 % injection 1 mL Start: 04-13-2024 End: 04-13-2024 1 mL, Injection, Once PRN Pr ocedure, Starting on Thu04/13/24 at 0947, For 1 dose 10 ml EPINEPHrine 0.1 mg/ml prefilled syringe (1 source) alpha-Adrenergic Agonist, beta-Adrenergic Agonist, Catecholamine Start: 10-07-2023 End: 10-07-2023 As needed, Starting on Thu10/07/23 at 0758, Intraprocedure Fluticasone Propionate CREA (13 sources) Fluticasone Prop ionate CREA Quantity: 0 Refills: 0 Ordered: 08-Jan-2021 DO Active gadobenate dimeglumine (MULTIHANCE) injection 16.1 mL (1 source) Start: 12-01-2023 End: 12-01-2023 gadobenate dimeglumine (MULTIHANCE) injection 16.1 mL iohexol (OMNIPaque) 350 mg iodine/mL solution 75 mL (2 sources) Start: 05-26-2023 End: 05-26-2023 iohexol (OMNIPaque) 350 mg iodine/mL solution 75 mL 1 ml methylPREDNISolone acetate 40 mg/ml injection (4 sources) Corticosteroid Start: 04-13-2024 End: 04-13-2024 methylPREDNISolone acetate (DEPO-Medrol) injection 40 mg Start: 04-13-2024 End: 04-13-2024 40 mg, Intra-articular, Once PRN Procedure, Starting on Thu04/13/24 at 0947, For 1 dose simethicone 66.7 mg/ml oral suspension (2 sources) Start: 06-10-2023 End: 06-10-2023 simethicone (Mylicon) drops Problems Active Problems Problem Classification Problem Date Documented Date Episodic/Chronic Biliary tract disease (3 sources) Acute cholecystitis; Translations: [ACUTE CHOLECYSTITIS] Onset: 06-04-2021 Episodic Cancer of other GI organs; 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; 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] Onset: 04-29-2022 Chronic Cardiac dysrhythmias (18 sources) Nonsustained ventricular tachycardia ; Translations: [NSVT (nonsustained ventricular tachycardia)] Onset: 07-10-2023 07-15-2023 Chronic Chronic kidney disease (11 sources) Chronic kidney disease stage 3A ; Translations: [Stage 3a chronic kidney disease (HCC)] Onset: 07-15-2023 07-15-2023 Chronic Coronary atherosclerosis and other heart disease (2 sources) Atherosclerotic heart disease of [place] coronary artery without angina pectoris; Translations: [Atherosclerotic heart disease of [place] coronary artery without angina pectoris] Onset: 07-27-2023 Chronic Diabetes mellitus with complications (20 sources) Polyneuropathy due to type 2 diabetes mellitus; Translations: [Type 2 diabetes mellitus with diabetic polyneuropathy] Onset: 06-24-2021 11-24-2022 Chronic Diabetes mellitus without complication (2 sources) Type 2 diabetes mellitus without complications; Translations: [TYPE 2 DM WITHOUT COMPLICATIONS] Onset: 12-12-2020 Chronic Diseases of white blood cells (6 sources) Leukemoid reaction; Translations: [Leukemoid reaction] Onset: 10-12-2023 10-12-2023 Chronic Disorders of lipid metabolism (11 sources) Hyperlipidemia, unspecified; Translations: [Mixed hyperlipidemia] Onset: 12-12-2020 11-24-2022 Chronic Diverticulosis and diverticulitis (9 sources) Diverticulosis of large intestine without perforation or abscess without bleeding; Translations: [Diverticulosis of sigmoid colon] Onset: 12-12-2020 02-24-2023 Chronic Esophageal disorders (12 sources) Gastro-esophageal reflux disease without esophagitis; Translations: [Gastroesophageal reflux disease] Onset: 12-12-2020 02-24-2023 Chronic Essential hypertension (20 sources) Essential (primary) hypertension; Translations: [Essential hypertension] Onset: 12-12-2020 07-29-2023 Chronic Gastritis and duodenitis (1 source) Unspecified chronic gastritis without bleeding; Translations: [Unspecified chronic gastritis without bleeding] Onset: 04-29-2022 Chronic Gout and other crystal arthropathies (8 sources) Gout; Translations: [Gout, unspecified] Onset: 06-29-2023 06-29-2023 Chronic Hyperplasia of prostate (20 sources) Benign prostatic hypertrophy with outflow obstruction; Translations: [Hypertrophy (benign) of prostate with urinary obstruction and other lower urinary tract symptoms (LUTS)] Onset: 02-24-2023 02-24-2023 Chronic Malignant neoplasm without specification of site (20 sources) Primary malignant neuroendocrine neoplasm of duodenum; 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] Onset: 11-28-2020 Chronic Osteoarthritis (9 sources) Arthritis; Translations: [Unspecified osteoarthritis, unspecified site] 04-12-2024 Chronic Other aftercare (1 source) Other terminal operations manager (current) drug therapy; Translations: [OTH UNDERGROUND UTILITY LOCATOR CURRENT DRUG THERAPY] Onset: 06-12-2021 Episodic Other [...] left adrenal gland] Onset: 12-01-2023 Episodic Other connective tissue disease (16 sources) Rotator cuff arthropathy of left shoulder; Translations: [Unspecified rotator cuff tear or rupture of left shoulder, not specified as traumatic] Onset: 02-24-2023 02-24-2023 Episodic Other diseases of kidney and ureters (1 source) Cyst of kidney, acquired; Translations: [Cyst of kidney, acquired] Onset: 12-01-2023 Episodic Other disorders of stomach and duodenum (1 source) Other diseases of stomach and duodenum; Translations: [Other diseases of stomach and duodenum] Onset: 05-12-2022 Episodic Other endocrine disorders (8 sources) Hypoglycemia; Translations: [Hypoglycemia, unspecified] Onset: 02-24-2023 02-24-2023 Chronic Other endocrine disorders (6 sources) Mass of left adrenal gland; Translations: [Other specified disorders of adrenal gland] Onset: 08-11-2023 08-11-2023 Chronic Other inflammatory condition of skin (8 sources) Pityriasis rosea; Translations: [Pityriasis rosea] Onset: 02-24-2023 02-24-2023 Chronic Other liver diseases (2 sources) Liver disease, unspecified; Translations: [Liver disease, unspecified] Onset: 05-20-2021 Chronic Other liver diseases (1 source) Abnormal levels of other serum enzymes; Translations: [ABNORMAL LEVELS OTHER SERUM ENZYMES] Onset: 06-12-2021 Episodic Other nervous system disorders (8 sources) Chronic pain; Translations: [Other chronic pain] Onset: 02-24-2023 02-24-2023 Chronic Other non-traumatic joint disorders (2 sources) Pain in left shoulder; Translations: [Pain in joint, shoulder region] 04-13-2024 Episodic Other nutritional; endocrine; and metabolic disorders (8 sources) Morbid obesity; Translations: [Morbid (severe) obesity due to excess calories] Onset: 11-24-2022 11-24-2022 Chronic Other nutritional; endocrine; and metabolic disorders (10 sources) Body mass index 30+ - obesity; Translations: [Obesity, unspecified] Onset: 02-24-2023 02-24-2023 Chronic Other upper respiratory disease (8 sources) Allergic rhinitis; Translations: [Allergic rhinitis, unspecified] Onset: 02-24-2023 02-24-2023 Chronic Other upper respiratory infections (8 sources) Chronic sinusitis; Translations: [Chronic sinusitis, unspecified] [...] tachycardia; Translations: [Other ventricular tachycardia] Onset: 07-13-2023 Unclassified (2 sources) Chronic pain of right knee 04-12-2024 Past or Other Problems Problem Classification Problem Date Documented Da te Episodic/Chronic Abdominal pain (5 sources) Right upper quadrant pain; Translations: [Unspecified abdominal pain] Onset: 06-18-2020 Episodic Administrative/social admission (6 sources) First encounter by subject; Translations: [Persons encountering health services in other specified circumstances] Onset: 07-15-2023 07-15-2023 Episodic Cancer; other and unspecified primary (1 [...] Onset: 04-29-2022 Episodic Deficiency and other anemia (16 sources) Anemia; Translations: [Anemia, unspecified] Onset: 02-24-2023 02-24-2023 Episodic E Codes: Fall (8 sources) Fall; Translations: [Unspecified fall, initial encounter] Onset: 02-24-2023 02-24-2023 Episodic Gastrointestinal hemorrhage (1 source) Hemorrhage of anus and rectum; Translations: [HEMORRHAGE OF ANUS AND RECTUM] Onset: 12-12-2020 Episodic Other aftercare (2 sources) lobsterman (current) use of oral hypoglycemic drugs; Translations: [UNDERGROUND UTILITY LOCATOR USE ORAL HYPOGLYCEMIC DX] Onset: 12-12-2020 Episodic [...] 04-29-2022 Episodic Other and unspecified benign neoplasm (8 sources) Tubular adenoma of colon; Translations: [Benign neoplasm of colon, unspecified] Onset: 02-24-2023 02-24-2023 Episodic Other circulatory disease (2 sources) Orthostatic hypotension; Translations: [Orthostatic hypotension] Onset: 10-27-2023 Episodic Other diseases of kidney and ureters (10 sources) Cyst of kidney; Translations: [Cyst of kidney, acquired] Onset: 06-29-2023 07-15-2023 Episodic Other gastrointestinal disorders (4 sources) Dysphagia, unspecified; Translations: [DYSPHAGIA UNSPECIFIED] Onset: 11-28-2020 Episodic Other gastrointestinal disorders (8 sources) Esophageal dysphagia; Translations: [Other dysphagia] Onset: 02-24-2023 02-24-2023 Episodic Other gastrointestinal disorders (8 sources) Slow transit constipation; Translations: [Slow transit constipation] Onset: 02-24-2023 02-24-2023 Episodic Other lower respiratory disease (8 sources) Nodule of lung; Translations: [Solitary pulmonary nodule] Onset: 06-29-2023 07-15-2023 Episodic Other nervous system disorders (8 sources) Impairment of balance; Translations: [Other abnormalities of gait and mobility] Onset: 02-24-2023 02-24-2023 Episodic Other non-traumatic joint disorders (10 sources) Pain in right knee; Translations: [Pain in joint, lower leg] Onset: 02-24-2023 02-24-2023 Episodic Other screening for suspected conditions (not mental disorders or infectious disease) (20 sources) Patient encounter status; Translations: [Screening for malignant neoplasms of prostate] Onset: 06-12-2021 07-15-2023 Episodic Other upper respiratory infections (6 sources) Acute upper respiratory infection; Translations: [Acute upper respiratory infection, unspecified] Onset: 11-16-2023 11-16-2023 Episodic Pneumonia (except that caused by tuberculosis or sexually transmitted disease) (6 sources) Left lower zone pneumonia; Translations: [Pneumonia, unspecified organism] Onset: 10-12-2023 10-12-2023 Episodic Screening and history of mental health and substance abuse codes (2 sources) Personal history of nicotine dependence; Translations: [PERSONAL HISTORY OF NICOTINE DEPEND] Onset: 06-12-2021 Episodic Syncope (10 sources) Near syncope; Translations: [Syncope and collapse] Onset: 07-10-2023 07-15-2023 Episodic Unclassified (1 source) Onset: 06-18-2023 06-18-2023 Unclassified (1 source) Other ventricular tachycardia; Translations: [Other ventricular tachycardia] Onset: 07-27-2023 Results Test Name Value Interpretation Reference Range Facility No Panel Informationon 04-13 GEMA Mccartney 04/13/2024 12:25 PM L Inj/Asp: L subacromial bursa on 04/13/2024 9:47 AM Indications: pain Details: 21 G needle, posterior approach Medications: 40 mg methylPREDNISolone acetate 40 MG/ML; 1 mL bupivacaine PF 0.5 % Outcome: tolerated well, no immediate complications Utilizing aseptic technique with universal precautions . Pt given injection Left Shoulder SA space ( code 19189 LT) Procedure, treatment alternatives, risks and benefits explained, specific risks discussed. Consent was given by the patient. Patient was prepped and draped in the usual sterile fashion. [facility] XR Shoulder - left 2 Viewson 04-13-2024 Imaging Result: AP and Scap Y left shoulder: No acute fracture or dislocation. Mild subchondral sclerosis to humeral head and inferior leon spurring. Degenerative changes noted to subacromial space consider with likely cuff arthropathy/ chronic cuff tear Metallic anchor humeral head without dislodgment.. Visualized lung dahl clear. Impression: Moderate shoulder arthritis concerning for rotator cuff arthropathy [facility] Radiology Study observation (narrative) [facility] CT CHEST W IV CONTRASTon CT CHEST W IV CONTRAST Interpreted By: Lul Escalante and Maltbie Grace STUDY: CT CHEST W IV CONTRAST; 12/31/2023 7:55 am INDICATION: Signs/Symptoms:LUNG NODULE. COMPARISON: CT chest abdomen pelvis 05/26/2023 ACCESSION NUMBER(S): [id number] ORDERING CLINICIAN: NEFTALI KNOWLES TECHNIQUE: Helical data [...] Morales MD. This study was interpreted at [place], [place]. Signed by: Lul Carver 01/01/2024 9:17 PM Dictation workstation: [id number] [facility] EGDon 12-29-2023 Esophagogastroduodenosco py Table formatting from the [...] DUODENAL BULB BIOPSY SURGICAL PATHOLOGY EXAM Grace Patricia 12/29/2023 1332 2 : r/o H Pylori Tissue STOMACH ANTRUM BIOPSY SURGICAL PATHOLOGY EXAM Grace Patricia 12/29/2023 133 Procedure Location [address] [id number] Referring Provider Jeremiah Magaña MD Procedure Provider Jeremiah Magaña MD [facility] Glucose Test strip manual (B ld) [Mass/Vol]on 12-29-2023 Glucose [Mass/Vol] 147 mg/dL High 74-99 [facility] Comment on above: Performed By: #### 2 [id number] #### OLIMPIA WARE ([id number]) [facility] [place] [place] [facility] ([facility]) [address] [place] [address] Surgical pathology studyon 0 12-29-2023 Surgical pathology study Pathology repor t.total SEE COMMENT Surgical Pathology Case: [id number] Authorizing Provider: Jeremiah Magaña MD Collected: 12/29/2023 1332 Ordering Location: [facility] [place] Received: 12/29/2023 1429 Pathologist: Spike Massey MD [...] in toto in one cassette. RCC Normal [facility] CBC W Auto Differential pane l (Bld)on 12-28-2023 Basophils (Bld) [#/Vol] 0.04 x10*3/uL Normal 0.00-0.10 [facility] Comment on above: Performed By: #### 5 7021-8 #### OLIMPIA WARE ([id number]) [facility] [place] ([facility]) [address] [place] [address] Basophils/100 WBC (Bld) 0.4 % Normal 0.0-2.0 [facility] Comment on above: Performed By: #### 5 7021-8 #### OLIMPIA WARE ([id number]) [facility] [place] [place] [facility] ([facility]) [address] [place] [address] Eosinophils (Bld) [#/Vol] 0.18 x10*3/uL Normal 0.00-0.40 [facility] Comment on above: Performed By: #### 5 7021-8 #### OLIMPIA WARE (65567) [facility] [place] [place] [facility] ([facility]) [address] [place] [address] Eosinophils/100 WBC (Bld) 1.9 % Normal 0.0-6.0 [facility] Comment on above: Performed By: #### 5 7021-8 #### OLIMPIA WARE ([id number]) [facility] [place] [place] [facility] ([facility]) [address] [place] [address] Erythrocyte distribution width (RBC) [Ratio] 16.3 % High 11.5-14.5 [facility] Comment on above: Performed By: #### 5 7021-8 #### OLIMPIA WARE (73386) [facility] [place] [place] [facility] ([facility]) [address] [place] [address] Hematocrit (Bld) [Volume fraction] 43.0 % Normal 41.0-52.0 [facility] Comment on above: Performed By: #### 5 7021-8 #### OLIMPIA WARE (77456) [facility] [place] [place] [facility] ([facility]) [address] [place] [address] Hemoglobin (Bld) [Mass/Vol] 13.4 g/dL Low 13.5-17.5 [facility] Comment on above: Performed By: #### 5 7021-8 #### OLIMPIA WARE (78404) [facility] [place] [place] [facility] ([facility]) [address] [place] [address] Immature granulocytes (Bld) [#/Vol] 0.03 x10*3/uL Normal 0.00-0.50 [facility] Comment on above: Performed By: #### 5 7021-8 #### OLIMPIA WARE ([id number]) [facility] [place] [place] [facility] ([facility]) [address] [place] [address] Immature granulocytes/100 WBC (Bld) 0.3 % Normal 0.0-0.9 [facility] Comment on above: Result Comment: Halima ture Granulocyte Count (IG) includes promyelocytes, myelocytes and metamyelocytes but does not include bands. Percent differential counts (%) should be interpreted in the context of the absolute cell counts (cells/UL). Performed By: #### 5 7021-8 #### OLIMPIA WARE ([id number]) [facility] [place] [place] ([facility]) [address] [place] [address] Lymphocytes (Bld) [#/Vol] 1.72 x10*3/uL Normal 0.80-3.00 [facility] Comment on above: Performed By: #### 5 7021-8 #### OLIMPIA WARE (95726) [facility] [place] [place] [facility] ([facility]) [address] [place] [address] Lymphocytes/100 WBC (Bld) 18.0 % Normal 13.0-44.0 [facility] Comment on above: Performed By: #### 5 7021-8 #### OLIMPIA WARE ([id number]) [facility] [place] [place] [facility] ([facility]) [address] [place] [address] MCH (RBC) [Entitic mass] 27.8 pg Normal 26.0-34.0 [facility] Comment on above: Performed By: #### 5 7021-8 #### OLIMPIA WARE (53962) [facility] [place] [place] [facility] ([facility]) [address] [place] [address] MCHC (RBC) [Mass/Vol] 31.2 g/dL Low 32.0-36.0 [facility] Comment on above: Performed By: #### 5 7021-8 #### OLIMPIA WARE (07373) [facility] [place] [place] [facility] ([facility]) [address] [place] [address] MCV (RBC) [Entitic vol] 89 fL Normal 80-[address] [facility] Comment on above: Performed By: #### 5 7021-8 #### OLIMPIA WARE ([id number]) [facility] [place] [place] [facility] ([facility]) [address] [place] [address] Monocytes (Bld) [#/Vol] 0.75 x10*3/uL Normal 0.05-0.80 [facility] Comment on above: Performed By: #### 5 7021-8 #### OLIMPIA WARE (60504) [facility] [place] [place] [facility] ([facility]) [address] [place] [address] Monocytes/100 WBC (Bld) 7.9 % Normal 2.0-10.0 [facility] Comment on above: Performed By: #### 5 7021-8 #### OLIMPIA WARE (85042) [facility] [place] [place] [facility] ([facility]) [address] [place] [address] Neutrophils (Bld) [#/Vol] 6.83 x10*3/uL High 1.60-5.50 [facility] Comment on above: Result Comment: Perc ent differential counts (%) should be interpreted in the context of the absolute cell counts (cells/uL). Performed By: #### 5 7021-8 #### OLIMPIA WARE ([id number]) [facility] [place] [place] [facility] ([facility]) [address] [place] [address] Neutrophils/100 WBC (Bld) 71.5 % Normal 40.0-80.0 [facility] Comment on above: Performed By: #### 5 7021-8 #### OLIMPIA WARE (99430) [facility] [place] [place] [facility] ([facility]) [address] [place] [address] Nucleated RBC/100 WBC (Bld) [Ratio] 0.0 /100 WBCs Normal 0.0-0.0 [facility] Comment on above: Performed By: #### 5 7021-8 #### OLIMPIA WARE (07724) [facility] [place] [place] [facility] ([facility]) [address] [place] [address] Platelets (Bld) [#/Vol] 365 x10*3/uL Normal 150-450 [facility] Comment on above: Performed By: #### 5 7021-8 #### OLIMPIA WARE (82508) [facility] [place] [place] [facility] ([facility]) [address] [place] [address] RBC (Bld) [#/Vol] 4.82 x10*6/uL Normal 4.50-5.90 [facility] Comment on above: Performed By: #### 5 7021-8 #### OLIMPIA WARE (92900) [facility] [place] [place] [facility] ([facility]) [address] [place] [address] WBC (Bld) [#/Vol] 9.6 x10*3/uL Normal 4.4-11.3 [facility] Comment on above: Performed By: #### 5 7021-8 #### OLIMPIA WARE ([id number]) [facility] [place] [place] [facility] ([facility]) [address] [place] [address] Comprehensive metabolic 2000 panelon 12-28-2023 Albumin BCP dye [Mass/Vol] 4.1 g/dL Normal 3.4-5.0 [facility] Comment on above: Performed By: #### 2 4323-8 #### OLIMPIA WARE (74319) [facility] [place] [place] [facility] ([facility]) [address] [place] [address] ALP [Catalytic activity/Vol] 94 U/L Normal 33-136 [facility] Comment on above: Performed By: #### 2 4323-8 #### OLIMPIA WARE (51452) [facility] [place] [place] [facility] ([facility]) [address] [place] [address] ALT With P-5'-P [Catalytic activity/Vol] 15 U/L Normal 10-52 [facility] Comment on above: Result Comment: Kanwal ents treated with Sulfasalazine may generate falsely decreased results for ALT. Performed By: #### 2 4323-8 #### OLIMPIA WARE ([id number]) [facility] [place] [place] [facility] ([facility]) [address] [place] [address] Anion gap [Moles/Vol] 12 mmol/L Normal 10-20 [facility] Comment on above: Performed By: #### 2 4323-8 #### OLIMPIA WARE (46596) [facility] [place] [place] ([facility]) [address] [place] [address] AST With P-5'-P [Catalytic activity/Vol] 13 U/L Normal 9-39 [facility] Comment on above: Performed By: #### 2 4323-8 #### OLIMPIA WARE (08972) [facility] [place] [place] [facility] ([facility]) [address] [place] [address] Bilirubin [Mass/Vol] 0.4 mg/dL Normal 0.0-1.2 [facility] Comment on above: Performed By: #### 2 4323-8 #### OLIMPIA WARE (97727) [facility] [place] [place] [facility] ([facility]) [address] [place] [address] Calcium [Mass/Vol] 9.6 mg/dL Normal 8.6-10.3 [facility] Comment on above: Performed By: #### 2 4323-8 #### OLIMPIA WARE (41650) [facility] [place] [place] [facility] ([facility]) [address] [place] [address] Chloride [Moles/Vol] 104 mmol/L Normal 98-107 [facility] Comment on above: Performed By: #### 2 4323-8 #### OLIPMIA WARE (50160) [facility] [place] [place] ([facility]) [address] [place] [address] CO2 [Moles/Vol] 27 mmol/L Normal 21-32 [facility] Comment on above: Performed By: #### 2 4323-8 #### OLIMPIA WARE (19887) [facility] [place] [place] ([facility]) [address] [place] [address] Creatinine [Mass/Vol] 1.18 mg/dL Normal 0.50-1.30 [facility] Comment on above: Performed By: #### 2 4323-8 #### OLIMPIA WARE (38001) [facility] [place] [place] ([facility]) [address] [place] [address] Glomerular filtration rate/1.73 sq M.predicted 65 mL/min/1.73m*2 Normal >60 [facility] Comment on above: Result Comment: Calc ulations of estimated GFR are performed using the 2020 CKD-EPI Study Refit equation without the race variable for the IDMS-Traceable creatinine methods. https://jasn.asnjournals.org/content/early//ASN.310 8345024 Performed By: #### 2 4323-8 #### OLIMPIA WARE ([id number]) [facility] [place] [place] ([facility]) [address] [place] [address] Glucose [Mass/Vol] 171 mg/dL High 74-99 [facility] Comment on above: Performed By: #### 2 4323-8 #### OLIMPIA WARE (80364) [facility] [place] [place] ([facility]) [address] [place] [address] Potassium [Moles/Vol] 5.0 mmol/L Normal 3.5-5.3 [facility] Comment on above: Performed By: #### 2 4323-8 #### OLIMPIA WARE (75294) [facility] [place] [place] ([facility]) [address] [place] [address] Protein [Mass/Vol] 6.7 g/dL Normal 6.4-8.2 [facility] Comment on above: Performed By: #### 2 4323-8 #### OLIMPIA WARE (69713) [facility] [place] [place] ([facility]) [address] [place] [address] Sodium [Moles/Vol] 138 mmol/L Normal 136-145 [facility] Comment on above: Performed By: #### 2 4323-8 #### OLIMPIA WARE (66986) [facility] [place] [place] ([facility]) [address] [place] [address] Urea nitrogen [Mass/Vol] 23 mg/dL Normal 6-23 [facility] Comment on above: Performed By: #### 2 4323-8 #### OLIMPIA WARE (40235) [facility] [place] [place] ([facility]) [address] [place] [address] MRI ABDOMEN W WO CONTRASTon 12-01-2023 MRI ABDOMEN W WO CONTRAST RADRPT EXAM: MRI ABDOMEN W WO CONTRAST, 12/01/2023. COMPARISON STUDY: CT of the abdomen and pelvis with contrast 06/03/2021. CT of the abdomen and pelvis 09/18/2010. TECHNIQUE: Coronal T2, axial T1 in and fsb-pc-bjtst, axial T2 before and after fat saturation [...] and drops in signal on the T1 iqx-dx-roihl images. This demonstrates hypoenhancement on the postcontrast images measuring 8 x 10 mm, image 50 of series 7. The medial limb of the right adrenal is hyperplastic with transverse thickness of 9 mm. This drops in signal intensity on the T1 jgz-ja-thfes as compared to T1 in-phase images. Nodular thickened appearance of the left adrenal body has similar characteristics dropping in signal intensity on the T1 xwi-tu-lqqby as compared to T1 in-phase images. This [...] adrenal is unchanged compared to study from 2011. 2. Left adrenal nodule/adenoma is also unchanged [...] Rajinder Joy MD 12/07/23 Final result Normal [facility] BUN & Creatinineon 4 Creatinine [Mass/Vol] 1.28 mg/dL High 0.66 - 1.25 mg/dL [facility] Est, Glom Filt Rate 58 Low - PINF [facility] Comment on above: GFR calculated using CKD-EPI [...] Interpretation and review of laboratory results Abnormal [facility] Urea nitrogen (BldV) [Mass/Vol] 25 mg/dL High 9 - 20 mg/dL [facility] BUN AND CREATININEon 024 Creatinine [Mass/Vol] 1.28 mg/dL High 0.66-1.25 [facility] Comment on above: Performed By: #### B UNCRE #### [place] [address] Ph. [phone] GFR/1.73 sq M.predicted among non-blacks MDRD (S/P/Bld) [Vol rate/Area] 58 mL/min/{1.73_m2} Low >60 [facility] Comment on above: Result Comment: GFR calculated using CKD-EPI (2020) formula.\X0D0A\Stage 1 Kidney damage (e.g., protein in the urine) with normal GFR >=90\X0D0A\Stage 2 Kidney damage with mild decrease in GFR 60-89\X0D0A\Stage 3a Moderate decrease in GFR 45-59\X0D0A\Stage 3b Moderate decrease in GFR 30-44\X0D0A\Stage 4 Severe reduction in GFR 15-29\X0D0A\Stage 5 Kidney failure <15 Performed By: #### B UNCRE #### [place] [id number] Ph. [phone] Urea nitrogen [Mass/Vol] 25 mg/dL High 9-20 [facility] Comment on above: Performed By: #### B UNCRE #### [place] [address] [place] [address] . [phone] Office Visiton 10-27-2023 Follow-up visit [id number] Nika Car ert F 1950 M Date Provider Department Center 10/27/2023 NOE FERREIRA EZEQUIEL [facility] Family History Problem Relation Age of Onset Angina Mother Cancer Mother Heart attack Mother Heart failure Mother Hypertension Mother Cancer Father Diabetes type II Father Hypertension Father Cancer Sister Diabetes type II Sister Cancer Brother Diabetes type II Brother Hypertension Brother Cancer Brother Diabetes type II Brother Family Status - Relation Status Age at Mother Father Sister Brother Brother Level of Service:86626 OR OFFICE/OUTPATIENT ESTABLISHED LOW MDM 20 MIN Normal [facility] ENDOSCOPIC ULTRASOUND (UPPER )on 10-07-2023 ENDOSCOPIC ULTRASOUND [...] EXAM Mayelin Page 10/07/2023 0811 Procedure Location [facility] [address] [facility] [address] [place] [address] [facility] [address] [place] [address] Procedure Provider Jeremiah Magaña MD [facility] Endoscopic Ultrasound (Upper )on 10-07-2023 Table formatting [...] EXAM Mayelin Page 10/07/2023 0811 Procedure Location [facility] [address] [facility] [address] [place] [address] [facility] [address] [place] [address] Procedure Provider Jeremiah Magaña MD [facility] Work Phone: [facility] Work Phone: Radiology Study observation (narrative) [facility] Work Phone: Glucose Test strip manual (B ld) [Mass/Vol]on 10-07-2023 Glucose [Mass/Vol] 149 mg/dL High 74 - 99 mg/dL [facility] Interpretation and review of laboratory results Abnormal [facility] Glucose [Mass/Vol] 149 mg/dL High 74-99 [facility] Comment on above: Performed By: #### 2 341-6 #### OLIMPIA WARE ([id number]) [facility] [place] [place] ([facility]) [address] [place] [address] Surgical pathology studyon 0 10-07-2023 Surgical pathology study Pathology repor t.total SEE COMMENT Surgical Pathology Case: [id number] Authorizing Provider: Jeremiah Magaña MD Collected: 10/07/2023 0811 Ordering Location: [facility] [place] Received: 10/07/2023 0942 Pathologist: Gilda Butterfield Asa, [...] determined by the Department of Pathology at [facility]. The FDA does not require this [...] positive and negative controls which stained appropriately. [facility] 29on 09-15-2023 29 Addended by: ALON GRECO on: 09/15/2023 04:33 PM Modules accepted: Orders [facility] Office Visiton 09-15-2023 Follow-up visit [id number] JosepNika 1950 M Date Provider Department Center 09/15/2023 241-NOE KNIGHT EZEQUIEL Narayanan [facility] Family History Problem Relation Age of Onset Angina Mother Cancer Mother Heart attack Mother Heart failure Mother Hypertension Mother Cancer Father Diabetes type II Father Hypertension Father Cancer Sister Diabetes type II Sister Cancer Brother Diabetes type II Brother Hypertension Brother Cancer Brother Diabetes type II Brother Family Status - Relation Status Age at Mother Father Sister Brother Brother Level of Service:95082 OR OFFICE/OUTPATIENT NEW MODERATE MDM 45 MINUTES Reason for Visit and Comments: Follow-up [837311] - Event monitor results [facility] 36on 08-26-2023 36 Spoke with patient's and informed her of increase in hydralazine and new RX sent to [facility]. She verbalized understanding. She will call the office in a few weeks if BP remains elevated. [facility] 36on 08-25-2023 36 Patient's whitlock kelle to make you aware that his BP is still running over 130/80. She said he's taken his BP 13 times and only 3 of them have been under 130/80. Did you want to make a medication adjustment? Please advise. [facility] Orders Onlyon 08-25-2023 Orders Only [id number] Nika Car F 1950 M Date Provider Department Center 08/25/[address] No family history on file [facility] 36on 08-21-2023 36 Pt's calls for crestor 20 mg refill [facility] 37on 08-18-2023 37 Stop bisprolol Start hydralazine and goal b/p is less than 130/80, call office for any concerns [facility] Office Visiton 08-18-2023 Follow-up visit [id number] Nika Car F 1950 M Date Provider Department Center 08/18/2023 LATANYA MINER EZEQUIEL [facility] No family history on file Level of Service:42269 OR OFFICE/OUTPATIENT ESTABLISHED MOD MDM 30 MIN [facility] Culture, Urineon 07-31-2023 NV - URINE CULTURE No growth [facility] Comment on above: Order Comment: NV - Source of Urine Collection? Urine clean catch\X0D0A\Performed by [facility] [address] [place] [address] [place] - Source of Urine Collection? Urine clean catch NV - Current Antibiotic Therapy? No Answer Given Specify (ex-cath, midstream, cysto, etc)?->midstream Performed By: #### C UR #### [facility] See Report URINE CULTUREon 07-31-2023 Bacteria identified Cx Nom (U) MICROBIOLOGY REPORT [facility], [address] [place] [address], [place], [address] PATIENT: YUSEF CAR LOCATION: [facility] - - : 1950 AGE: 73 SEX: M ADM: 07/31/23 Att. Physician: PHYSICIAN, NON-STAFF Order Id: [id number] Req. Physician: PHYSICIAN, NON-STAFF Source: urine, clean catch Site: Collected: 07/31/23 11:50 Current Antibiotics: not stated Antibiotics comment: - C O M M E N T S NV - Source of Urine Collection? Urine clean catch STATUS OF ORDERED AND REPORTED TESTS URINE CULTURE FINAL 08/02/23 URINE CULTURE FINAL 08/02/23 07:56 08/01/23 No growth-preliminary 08/02/23 No growth Normal [facility] Urinalysis Completeon 2023 BACT None Seen Normal [facility] Comment on above: Performed By: #### U COMP #### [place] [address] Ph. [phone] UBIL Negative Normal Negative [facility] Comment on above: Performed By: #### U COMP #### [address] [address] Ph. [phone] UBLO Negative Normal Negative [facility] Comment on above: Performed By: #### U COMP #### [place] [address] Ph. [phone] UCLAR [facility] Comment on above: Performed By: #### U COMP #### [place] [address] Ph. [phone] UCOL Yellow Normal [facility] Comment on above: Performed By: #### U COMP #### [address] [address] Ph. [phone] UGLU Negative Normal Negative [facility] Comment on above: Performed By: #### U COMP #### [address] [address] Ph. [phone] UKET Negative Normal Negative [facility] Comment on above: Performed By: #### U COMP #### [address] [address] Ph. [phone] ULEU Negative Normal Negative [facility] Comment on above: Performed By: #### U COMP #### [address] [address] Ph. [phone] UNIT Negative Normal Negative [facility] Comment on above: Performed By: #### U COMP #### [address] [address] Ph. [phone] UPH 6.0 Normal 5.0-7.0 [facility] Comment on above: Performed By: #### U COMP #### [address] [address] Ph. [phone] UPRO Negative Normal Negative [facility] Comment on above: Performed By: #### U COMP #### [address] [address] Ph. [phone] URBC None Seen Normal [facility] Comment on above: Performed By: #### U COMP #### [address] [address] Ph. [phone] USG 1.010 Normal 1.005-1.03 0 [facility] Comment on above: Performed By: #### U COMP #### [address] [address] Ph. [phone] UURO 0.2 E.U./dL Normal <2.0 [facility] Comment on above: Performed By: #### U COMP #### [place] [address] [place] [address] Ph. [phone] UWBC None Seen Normal [facility] Comment on above: Performed By: #### U COMP #### [place] [address] [place] [address] Ph. [phone] Study Interpretation of outs jeanna studyon 07-28-2023 There is no result f or this study. This is a placeholder for comparison films only. [facility] RAD US COMPARISON OF OUTSIDE BRYANT MSon 07-28-2023 US COMPARISON OF OUTSIDE FILMS RADRPT There is no result for this study. This is a placeholder for comparison films only. Final result Normal [facility] ANESon 07-27-2023 ANES ----- ----- Attestation signed by Erin Armstrong MD at 07/27/2023 8:32 AM Erin Armstrong MD, MPH, [facility], [facility], [facility] Interventional Cardiology Pager Email: [email or web address] ----- Patient: Yusef Car Procedure Information Date/Time: 07/27/23 1130 Procedures: Coronary angiography - Lt and CORS, recently admit to [facility]- Near syncope, NSVT, chest pain Right heart cath Location: [facility] / [facility] (Cath) Providers: Erin Armstrong MD Clinical information reviewed: Allergies Meds Physical Exam Airway Mallampati: III TM distance: >3 FB Cardiovascular Rhythm: regular Dental Pulmonary Abdominal Anesthesia Plan ASA 3 Anesthetic plan and risks discussed with patient. Use of blood products discussed with patient who. Plan discussed with attending. Additional Equipment Requests Normal [facility] HPon 07-27-2023 HP ----- ----- Attestation [...] Respiratory Denies: shortness of breath or cough [facility] Medical History Bradycardia with 31-40 beats per minute R00.1 - Bradycardia, unspecified (ICD-10) Health Information Management [phone] [facility] 2 Patient name: YUSEF CAR Paroxysmal cardiac [...] per week How often do you attend [employer] or rastafari services: never Little interest or pleasure in doing things: not at all Feeling down, depressed, or hopeless: not at all Feel stressed/tense/nervous/an xious/difficulty sleeping: not at all Do you think of yourself as: straight/heterosexual Gender Identity: male [employer] Information Management [phone] [facility] 3 Patient name: YUSEF CAR Home Medications [...] and aurora (more content not included)... Normal [facility] NURSNOTEon 07-27-2023 NURSNOTE RN educated pt on d/ c instructions. RN encouraged pt to voice any questions or concerns. Pt verbalizes no questions or concerns at this time. Pt was wheeled off of unit with all of belongings. Normal [facility] POCT GLUCOSE METER UNSOLICIT ED RESULTSon 07-27-2023 Glucose [Mass/Vol] 130 mg/dL High 70-105 [facility] Comment on above: Order Comment: Waive d Testing in the ED is performed under the ED CLIA certificate #[id number]. Result Comment: bradlyo [id number] Performed By: #### L [id number] ####[facility] ([facility] [place] [address] HPon 07-15-2023 HP Formatting of this n ote is different from the original. Subjective Patient ID: Yusef Car is a 73 y.o. male who presents for Establish Care. Recent hospital admission at [facility]. Abnormal Nuclear stress test. Scheduled for [facility] in Jul. Asmptomatic currently. Current Outpatient [...] NSVT (nonsustained ventricular tachycardia) (CMS/HCC) Scheduled for [facility] in July. Patient is currently asymptomatic. Instructed [...] and updated medication (more content not included)... [facility] Orders Onlyon 07-10-2023 Orders Only [id number] Nika Car ert 1950 M Date Provider Department Center 07/10/2023 LATANYA MINER [facility]. No family history on file [facility] EGDon 06-10-2023 Esophagogastroduodenosco py Table formatting from the original result was not included. [facility] EGD Study observation Narrat iveon 06-10-2023 Table [...] EXAM Mayelin Page 06/10/2023 0859 Procedure Location [facility] [address] [place] [id number] Referring Provider Jazlyn Mcarthur, State Wildlife Officer-middleware administrator [id number] [address] [facility] [place] [address] Procedure Provider Sam Padilla MD [facility] Work Phone: [facility] Work Phone: Radiology Study observation (narrative) [facility] Work Phone: Glucose Test strip manual (B ld) [Mass/Vol]on 06-10-2023 Glucose [Mass/Vol] 113 mg/dL High 74 - 99 mg/dL [facility] Interpretation and review of laboratory results Abnormal [facility] Glucose [Mass/Vol] 113 mg/dL High 74-99 [facility] Comment on above: Performed By: #### 2 341-6 #### OLIMPIA WARE ([id number]) [facility] [place] [facility] ([facility]) [id number] [place] [address] Surgical pathology studyon 1 08-11-2022 Surgical pathology study Pathology repor t.total SEE COMMENT Surgical Pathology Case: [id number] Authorizing Provider: Sam Padilla MD Collected: 06/10/2023 0859 Ordering Location: [facility] Received: 06/10/2023 0920 Pathologist: Chucho Santacruz MD [...] is submitted in toto in one cassette. 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 COMPARISON: CT abdomen 12/25/2020 ACCESSION NUMBER(S): [id number] ORDERING CLINICIAN: JAZLYN MCARTHUR TECHNIQUE: Contiguous axial [...] scans. 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 COMPARISON: CT abdomen 12/25/2020 ACCESSION NUMBER(S): [id number] ORDERING CLINICIAN: JAZLYN MCARTHUR TECHNIQUE: Contiguous axial [...] Juanjose Walters 05/27/2023 11:47 AM Dictation workstation: [id number] Normal [facility] CT Chest and Abdomen and Pel vis W contrast Kristie 05-26-2023 Radiology Study observation (narrative) [facility] Work Phone: CBC W Auto Differential pane l (Bld)on 05-22-2023 Basophils (Bld) [#/Vol] 0.04 x10*3/uL Normal 0.00-0.10 [facility] Comment on above: Performed By: #### 5 7021-8 #### OLIMPIA WARE ([id number]) [facility] [place] [facility] ([facility]) [address] [place] [address] Basophils/100 WBC (Bld) 0.5 % Normal 0.0-2.[address] [facility] Comment on above: Performed By: #### 5 7021-8 #### OLIMPIA WARE ([id number]) [facility] [place] [place] [facility] ([facility]) [address] [place] [address] Eosinophils (Bld) [#/Vol] 0.09 x10*3/uL Normal 0.00-0.40 [facility] Comment on above: Performed By: #### 5 7021-8 #### OLIMPIA WARE ([id number]) [facility] [place] [place] ([facility]) [address] [place] [address] Eosinophils/100 WBC (Bld) 1.0 % Normal 0.0-6.0 [facility] Comment on above: Performed By: #### 5 7021-8 #### OLIMPIA WARE ([id number]) [facility] [place] [place] ([facility]) [address] [place] [address] Erythrocyte distribution width (RBC) [Ratio] 15.3 % High 11.5-14.5 [facility] Comment on above: Performed By: #### 5 7021-8 #### OLIMPIA WARE ([id number]) [facility] [place] [place] ([facility]) [id number] [place] [address] Hematocrit (Bld) [Volume fraction] 40.4 % Low 41.0-52.0 [facility] Comment on above: Performed By: #### 5 7021-8 #### OLIMPIA WARE (16762) [facility] [place] [place] [facility] ([facility]) [address] [place] [address] Hemoglobin (Bld) [Mass/Vol] 12.7 g/dL Low 13.5-17.5 [facility] Comment on above: Performed By: #### 5 7021-8 #### OLIMPIA WARE ([id number]) [facility] [place] [place] [facility] ([facility]) [address] [place] [address] Immature granulocytes (Bld) [#/Vol] 0.04 x10*3/uL Normal 0.00-0.50 [facility] Comment on above: Performed By: #### 5 7021-8 #### OLIMPIA WARE ([id number]) [facility] [place] [place] [facility] ([facility]) [address] [place] [address] Immature granulocytes/100 WBC (Bld) 0.5 % Normal 0.0-0.9 [facility] Comment on above: Result Comment: Halima ture Granulocyte Count (IG) includes promyelocytes, myelocytes and metamyelocytes but does not include bands. Percent differential counts (%) should be interpreted in the context of the absolute cell counts (cells/UL). Performed By: #### 5 7021-8 #### OLIMPIA WARE ([id number]) [facility] [place] [place] ([facility]) [address] [place] [address] Lymphocytes (Bld) [#/Vol] 1.47 x10*3/uL Normal 0.80-3.00 [facility] Comment on above: Performed By: #### 5 7021-8 #### OLIMPIA WARE ([id number]) [facility] [place] [place] [facility] ([facility]) [address] [place] [address] Lymphocytes/100 WBC (Bld) 17.0 % Normal 13.0-44.0 [facility] Comment on above: Performed By: #### 5 7021-8 #### OLIMPIA WARE (94145) [facility] [place] [place] [facility] ([facility]) [address] [place] [address] MCH (RBC) [Entitic mass] 28.5 pg Normal 26.0-34.0 [facility] Comment on above: Performed By: #### 5 7021-8 #### OLIMPIA WARE (84695) [facility] [place] [place] [facility] ([facility]) [address] [place] [address] MCHC (RBC) [Mass/Vol] 31.4 g/dL Low 32.0-36.0 [facility] Comment on above: Performed By: #### 5 7021-8 #### OLIMPIA WARE (15421) [facility] [place] [place] [facility] ([facility]) [address] [place] [address] MCV (RBC) [Entitic vol] 91 fL Normal 80-[address] [facility] Comment on above: Performed By: #### 5 7021-8 #### OLIMPIA WARE ([id number]) [facility] [place] [place] ([facility]) [address] [place] [address] Monocytes (Bld) [#/Vol] 0.54 x10*3/uL Normal 0.05-0.80 [facility] Comment on above: Performed By: #### 5 7021-8 #### OLIMPIA WARE (60106) [facility] [place] [place] [facility] ([facility]) [address] [place] [address] Monocytes/100 WBC (Bld) 6.2 % Normal 2.0-10.[address] [facility] Comment on above: Performed By: #### 5 7021-8 #### OLIMPIA WARE ([id number]) [facility] [place] [facility] ([facility]) [address] [place] [address] Neutrophils (Bld) [#/Vol] 6.48 x10*3/uL High 1.60-5.50 [facility] Comment on above: Result Comment: Perc ent differential counts (%) should be interpreted in the context of the absolute cell counts (cells/uL). Performed By: #### 5 7021-8 #### OLIMPIA WARE ([id number]) [facility] [place] [place] [facility] ([facility]) [address] [place] [address] Neutrophils/100 WBC (Bld) 74.8 % Normal 40.0-80.0 [facility] Comment on above: Performed By: #### 5 7021-8 #### OLIMPIA WARE (52956) [facility] [place] [place] [facility] ([facility]) [address] [place] [address] Nucleated RBC/100 WBC (Bld) [Ratio] 0.0 /100 WBCs Normal 0.0-0.0 [facility] Comment on above: Performed By: #### 5 7021-8 #### OLIMPIA WARE ([id number]) [facility] [place] [place] [facility] ([facility]) [address] [place] [address] Platelets (Bld) [#/Vol] 403 x10*3/uL Normal 150-450 [facility] Comment on above: Performed By: #### 5 7021-8 #### OLIMPIA WARE (23787) [facility] [place] [place] ([facility]) [address] [place] [address] RBC (Bld) [#/Vol] 4.46 x10*6/uL Low 4.50-5.90 [facility] Comment on above: Performed By: #### 5 7021-8 #### OLIMPIA WARE ([id number]) [facility] [place] [place] [facility] ([facility]) [address] [place] [address] WBC (Bld) [#/Vol] 8.7 x10*3/uL Normal 4.4-11.3 [facility] Comment on above: Performed By: #### 5 7021-8 #### OLIMPIA WARE (23149) [facility] [place] [place] [facility] ([facility]) [address] [place] [address] Comprehensive metabolic 2000 panelon 05-22-2023 Albumin BCP dye [Mass/Vol] 4.1 g/dL Normal 3.4-5.0 [facility] Comment on above: Performed By: #### 2 4323-8 #### OLIMPIA WARE (90446) [facility] [place] [place] [facility] ([facility]) [address] [place] [address] ALP [Catalytic activity/Vol] 73 U/L Normal 33-136 [facility] Comment on above: Performed By: #### 2 4323-8 #### OLIMPIA WARE (44565) [facility] [place] [place] [facility] ([facility]) [address] [place] [address] ALT With P-5'-P [Catalytic activity/Vol] 8 U/L Low 10-52 [facility] Comment on above: Result Comment: Kanwal ents treated with Sulfasalazine may generate falsely decreased results for ALT. Performed By: #### 2 4323-8 #### OLIMPIA WARE (48235) [facility] [place] [place] [facility] ([facility]) [address] [place] [address] Anion gap [Moles/Vol] 12 mmol/L Normal 10-20 [facility] Comment on above: Performed By: #### 2 4323-8 #### OLIMPIA WARE ([id number]) [facility] [place] [place] [facility] ([facility]) [address] [place] [address] AST With P-5'-P [Catalytic activity/Vol] 10 U/L Normal 9-39 [facility] Comment on above: Performed By: #### 2 4323-8 #### OLIMPIA WARE (79034) [facility] [place] [facility] ([facility]) [address] [place] [address] Bilirubin [Mass/Vol] 0.6 mg/dL Normal 0.0-1.2 [facility] Comment on above: Performed By: #### 2 4323-8 #### OLIMPIA WARE ([id number]) [facility] [place] [place] [facility] ([facility]) [address] [place] [address] Calcium [Mass/Vol] 9.2 mg/dL Normal 8.6-10.3 [facility] Comment on above: Performed By: #### 2 4323-8 #### OLIMPIA WARE (82331) [facility] [place] [place] [facility] ([facility]) [address] [place] [address] Chloride [Moles/Vol] 105 mmol/L Normal 98-107 [facility] Comment on above: Performed By: #### 2 4323-8 #### OLIMPIA WARE ([id number]) [facility] [place] [place] [facility] ([facility]) [address] [place] [address] CO2 [Moles/Vol] 25 mmol/L Normal 21-32 [facility] Comment on above: Performed By: #### 2 4323-8 #### OLIMPIA WARE ([id number]) [facility] [place] [place] [facility] ([facility]) [address] [place] [address] Creatinine [Mass/Vol] 1.27 mg/dL Normal 0.50-1.30 [facility] Comment on above: Performed By: #### 2 4323-8 #### OLIMPIA WARE (58448) [facility] [place] [place] [facility] ([facility]) [address] [place] [address] GFR/1.73 sq M.predicted MDRD (S/P/Bld) [Vol rate/Area] 59 mL/min/1.73m*2 Low >60 [facility] Comment on above: Result Comment: Calc ulations of estimated GFR are performed using the 2020 CKD-EPI Study Refit equation without the race variable for the IDMS-Traceable creatinine methods. https://jasn.asnjournals.org/content/early//ASN.479 3173360 Performed By: #### 2 4323-8 #### OLIMPIA WARE ([id number]) [facility] [place] [place] [facility] ([facility]) [address] [place] [address] Glucose [Mass/Vol] 140 mg/dL High 74-99 [facility] Comment on above: Performed By: #### 2 432-8 #### OLIMPIA WARE (66835) [facility] [place] [place] [facility] ([facility]) [address] [place] [address] Potassium [Moles/Vol] 4.3 mmol/L Normal 3.5-5.3 [facility] Comment on above: Performed By: #### 2 4323-8 #### OLIMPIA WARE (50448) [facility] [place] [place] [facility] ([facility]) [address] [place] [address] Protein [Mass/Vol] 6.5 g/dL Normal 6.4-8.2 [facility] Comment on above: Performed By: #### 2 4323-8 #### OLIMPIA WARE (53827) [facility] [place] [place] [facility] ([facility]) [address] [place] [address] Sodium [Moles/Vol] 138 mmol/L Normal 136-145 [facility] Comment on above: Performed By: #### 2 4323-8 #### OLIMPIA WARE (54960) [facility] [place] [place] [facility] ([facility]) [address] [place] [address] Urea nitrogen [Mass/Vol] 24 mg/dL High 6-23 [facility] Comment on above: Performed By: #### 2 4323-8 #### OLIMPIA WARE (66246) [facility] [place] [place] [facility] ([facility]) [address] [place] [address] CBC AND DIFFERENTIALon 05-12 % AUTOMATED IMMATURE GRAN Canceled Normal [facility] Comment on above: Order Comment: TEST CBC AND DIFFERENTIAL WAS CANCELLED, 05/12/2022 10:[address] ciaran mcmanus needed. Result Comment: Halima ture Granulocyte Count (IG) includes promyelocytes, myelocytes and metamyelocytes but does not include bands. Percent differential counts (%) should be interpreted in the context of the absolute cell counts (cells/L). Performed By: #### C BCDF #### [address] [place] [address] % BASOPHIL Canceled Normal [facility] Comment on above: Order Comment: TEST CBC AND DIFFERENTIAL WAS CANCELLED, 05/12/2022 10:[address] wagoner doesngustabo needed. Performed By: #### C BCDF #### [address] [place] [address] % EOSINOPHIL Canceled Normal [facility] Comment on above: Order Comment: TEST CBC AND DIFFERENTIAL WAS CANCELLED, 05/12/2022 10:[address] wagoner doesngustabo needed. Performed By: #### C BCDF #### [address] [place] [address] % LYMPHOCYTE Canceled Normal [facility] Comment on above: Order Comment: TEST CBC AND DIFFERENTIAL WAS CANCELLED, 05/12/2022 10:[address] wagoner doesngustabo needed. Performed By: #### C BCDF #### [address] [place] [address] % MONOCYTE Canceled Normal [facility] Comment on above: Order Comment: TEST CBC AND DIFFERENTIAL WAS CANCELLED, 05/12/2022 10:[address] ciaran mcmanus needed. Performed By: #### C BCDF #### [address] [place] [address] % NEUTROPHIL Canceled Normal [facility] Comment on above: Order Comment: TEST CBC AND DIFFERENTIAL WAS CANCELLED, 05/12/2022 10:[address] ciaran mcmanus needed. Performed By: #### C BCDF #### [address] [place] [address] BASOPHIL Canceled Normal [facility] Comment on above: Order Comment: TEST CBC AND DIFFERENTIAL WAS CANCELLED, 05/12/2022 10:[address] ciaran mcmanus needed. Performed By: #### C BCDF #### [address] [place] [address] DIFFERENTIAL Canceled Normal [facility] Comment on above: Order Comment: TEST CBC AND DIFFERENTIAL WAS CANCELLED, 05/12/2022 10:[address] ciaran mcmanus needed. Performed By: #### C BCDF #### [address] [place] [address] EOSINOPHIL Canceled Normal [facility] Comment on above: Order Comment: TEST CBC AND DIFFERENTIAL WAS CANCELLED, 05/12/2022 10:[address] ciaran mcmanus needed. Performed By: #### C BCDF #### [address] [place] [address] HCT Canceled Normal [facility] Comment on above: Order Comment: TEST CBC AND DIFFERENTIAL WAS CANCELLED, 05/12/2022 10:[address] ciaran mcmanus needed. Performed By: #### C BCDF #### [address] [place] [address] HGB Canceled Normal [facility] Comment on above: Order Comment: TEST CBC AND DIFFERENTIAL WAS CANCELLED, 05/12/2022 10:[address] ciaran mcmanus needed. Performed By: #### C BCDF #### [address] [place] [address] LYMPHOCYTE Canceled Normal [facility] Comment on above: Order Comment: TEST CBC AND DIFFERENTIAL WAS CANCELLED, 05/12/2022 10:[address] ciaran mcmanus needed. Performed By: #### C BCDF #### [address] [place] [address] MCHC Canceled Normal [facility] Comment on above: Order Comment: TEST CBC AND DIFFERENTIAL WAS CANCELLED, 05/12/2022 10:[address] ciaran mcmanus needed. Performed By: #### C BCDF #### [address] [place] [address] MCV Canceled Normal [facility] Comment on above: Order Comment: TEST CBC AND DIFFERENTIAL WAS CANCELLED, 05/12/2022 10:[address] ciaran mcmanus needed. Performed By: #### C BCDF #### [address] [place] [address] MONOCYTE Canceled Normal [facility] Comment on above: Order Comment: TEST CBC AND DIFFERENTIAL WAS CANCELLED, 05/12/2022 10:[address] ciaran mcmanus needed. Performed By: #### C BCDF #### [address] [place] [address] NEUTROPHIL Canceled Normal [facility] Comment on above: Order Comment: TEST CBC AND DIFFERENTIAL WAS CANCELLED, 05/12/2022 10:[address] ciaran mcmanus needed. Performed By: #### C BCDF #### [address] [place] [address] PLT Canceled Normal [facility] Comment on above: Order Comment: TEST CBC AND DIFFERENTIAL WAS CANCELLED, 05/12/2022 10:[address] ciaran mcmanus needed. Performed By: #### C BCDF #### [address] [place] [address] RBC Canceled Normal [facility] Comment on above: Order Comment: TEST CBC AND DIFFERENTIAL WAS CANCELLED, 05/12/2022 10:[address] ciaran mcmanus needed. Performed By: #### C BCDF #### [address] [place] [address] RDW-CV Canceled Normal [facility] Comment on above: Order Comment: TEST CBC AND DIFFERENTIAL WAS CANCELLED, 05/12/2022 10:[address] ciaran mcmanus needed. Performed By: #### C BCDF #### [address] [place] [address] WBC Canceled Normal [facility] Comment on above: Order Comment: TEST CBC AND DIFFERENTIAL WAS CANCELLED, 05/12/2022 10:[address] ciaran mcmanus needed. Performed By: #### C BCDF #### [address] [place] [address] COMPREHENSIVE PANELon 2021 ALBUMIN Canceled Normal [facility] Comment on above: Order Comment: TEST COMPREHENSIVE PANEL WAS CANCELLED, 05/12/2022 10:[address] ciaran mcmanus needed. Performed By: #### C MP #### [address] [place] [address] ALKALINE PHOSPHATASE Canceled Normal [facility] Comment on above: Order Comment: TEST COMPREHENSIVE PANEL WAS CANCELLED, 05/12/2022 10:[address] ciaran mcmanus needed. Performed By: #### C MP #### [address] [place] [address] ALT Canceled Normal [facility] Comment on above: Order Comment: TEST COMPREHENSIVE PANEL WAS CANCELLED, 05/12/2022 10:[address] ciaran mcmanus needed. Result Comment: Kanwal ents treated with Sulfasalazine may generate falsely decreased results for ALT. Performed By: #### C MP #### [address] [place] [address] ANION GAP Canceled Normal [facility] Comment on above: Order Comment: TEST COMPREHENSIVE PANEL WAS CANCELLED, 05/12/2022 10:[address] ciaran mcmanus needed. Performed By: #### C MP #### [address] [place] [address] AST Canceled Normal [facility] Comment on above: Order Comment: TEST COMPREHENSIVE PANEL WAS CANCELLED, 05/12/2022 10:[address] ciaran mcmanus needed. Performed By: #### C MP #### [address] [place] [address] BICARBONATE Canceled Normal [facility] Comment on above: Order Comment: TEST COMPREHENSIVE PANEL WAS CANCELLED, 05/12/2022 10:[address] ciaran mcmanus needed. Performed By: #### C MP #### [address] [place] [address] BILIRUBIN,TOTAL Canceled Normal [facility] Comment on above: Order Comment: TEST COMPREHENSIVE PANEL WAS CANCELLED, 05/12/2022 10:[address] ciaran mcmanus needed. Performed By: #### C MP #### [address] [place] [address] CALCIUM Canceled Normal [facility] Comment on above: Order Comment: TEST COMPREHENSIVE PANEL WAS CANCELLED, 05/12/2022 10:[address] ciaran mcmanus needed. Performed By: #### C MP #### [address] [place] [address] CHLORIDE Canceled Normal [facility] Comment on above: Order Comment: TEST COMPREHENSIVE PANEL WAS CANCELLED, 05/12/2022 10:[address] ciaran mcmanus needed. Performed By: #### C MP #### [address] [place] [address] CREATININE Canceled Normal [facility] [place] Comment on above: Order Comment: TEST COMPREHENSIVE PANEL WAS CANCELLED, 05/12/2022 10:[address] ciaran mcmanus needed. Performed By: #### C MP #### [address] [place] [address] eGFR FEMALE Canceled Normal [facility] [place] Comment on above: Order Comment: TEST COMPREHENSIVE PANEL WAS CANCELLED, 05/12/2022 10:[address] ciaran mcmanus needed. Result Comment: CALC ULATIONS OF ESTIMATED GFR ARE PERFORMED USING THE 2020 CKD-EPI STUDY REFIT EQUATION WITHOUT THE RACE VARIABLE FOR THE IDMS-TRACEABLE CREATININE METHODS. https://jasn.asnjournals.org/content/earlyASN.482 4734978 Performed By: #### C MP #### [address] [place] [address] eGFR MALE Canceled Normal [facility] [place] Comment on above: Order Comment: TEST COMPREHENSIVE PANEL WAS CANCELLED, 05/12/2022 10:[address] wagoner doesngustabo needed. Result Comment: CALC ULATIONS OF ESTIMATED GFR ARE PERFORMED USING THE 2020 CKD-EPI STUDY REFIT EQUATION WITHOUT THE RACE VARIABLE FOR THE IDMS-TRACEABLE CREATININE METHODS. https://jasn.asnjournals.org/content/earlyASN.371 3432101 Performed By: #### C MP #### [address] [place] [address] GLUCOSE Canceled Normal [facility] [place] Comment on above: Order Comment: TEST COMPREHENSIVE PANEL WAS CANCELLED, 05/12/2022 10:[address] ciaran mcmanus needed. Performed By: #### C MP #### [address] [place] [address] POTASSIUM Canceled Normal [facility] [place] Comment on above: Order Comment: TEST COMPREHENSIVE PANEL WAS CANCELLED, 05/12/2022 10:[address] wagoner doesnot needed. Performed By: #### C MP #### [address] [place] [address] SODIUM Canceled Normal [facility] [place] Comment on above: Order Comment: TEST COMPREHENSIVE PANEL WAS CANCELLED, 05/12/2022 10:[address] ciaran mcmanus needed. Performed By: #### C MP #### [address] [place] [address] TOTAL PROTEIN Canceled Normal [facility] [place] Comment on above: Order Comment: TEST COMPREHENSIVE PANEL WAS CANCELLED, 05/12/2022 10:[address] wagoner doesngustabo needed. Performed By: #### C MP #### [address] [place] [address] UREA NITROGEN Canceled Normal [facility] [place] Comment on above: Order Comment: TEST COMPREHENSIVE PANEL WAS CANCELLED, 05/12/2022 10:[address] wagoner doesngustabo needed. Performed By: #### C MP #### [address] [place] [address] Clinic Note - Heme Onc-Follo w Up Visiton 05-12-2022 Clinic Note - Heme Onc-Follow Up Visit Patient Visit Information: Visit Type: Follow Up Visit History of Present Illness: ID Statement: YUSEF CAR is a 72 year old Male Chief Complaint: Duodenal neuroendocrine tumor Interval History: 71 years old gentleman from [place], [place] who has been referred to me from [facility]. The patient complained of acid reflux [...] Weights & Heights: Date: Weight/Scale Type:Height: 26-Aug-2021 13:22297 kg / standing htvgi610.8 cm 20-May-2021 12:39277 kg / standing pgiip824.8 cm 04-Feb-2021 09:85375 kg / standing .8 cm Physical Exam: [...] 1 (more content not included)... Normal [facility] Clinic Note - Intakeon 05-12 Clinic Note [...] 3 Weights & HeightsDate: Weight/Scale Type:Height: 26-Aug-2021 13:22222 kg / standing ucdgr898.8 cm 20-May-2021 12:41015 kg / standing asqck533.8 cm SpO2 (%)94 % SpO2 Patient Onroom [...] 09:56 by Kindra Maher (PCNA) Normal [facility] GLUCOSE-POCTon 04-29-2022 Glucose [Mass/Vol] 139 mg/dL High 74 - 99 [facility] Comment on above: Performed By: #### G MARIXA #### [facility] [place] [place] [address] [place] [address] Laboratory - Chemistry and C hemistry - challengeon 04-29-2022 Glucose [Mass/Vol] 139 mg/dL above high threshold 74 - 99 [facility] Work Phone: No Panel Informationon 04-29 [facility] [place] Work Phone: [email or web address] [facility] Work Phone: [facility] [employer] Work Phone: Order Reconciliationon 04-29 Order Reconciliation [...] 1 tab(s) orally once a day Normal [facility] Surgical Pathology Depar tmenton 04-29-2022 [facility] Surgical Pathology Department Name YUSEF CAR [...] reviewed this case. Diagnostic interpretation performed at [facility] [address] [facility] [place] [address] Clinical History: Follow up history of duodenal [...] and negative controls which stained appropriately. [facility] Department of Pathology [id number] [place] [address] Normal [facility] Comment on above: Performed By: #### U [facility] #### [facility] Surgical Pathology Department [address] [facility] [address] Upper GI endoscopyon 022 Upper GI endoscopy PATIENTNAME Patient Name: Yusef Car EXAMDATE Procedure Date: 04/29/2022 7:25 AM PATIENTID PATIENTACCOUNTNUM PATIENTDOB Date of : 1950 ADMITTYPE Admit Type: Outpatient PATIENTROOM Site: [facility] 1 ETHNICITY Ethnicity: Not or RACE Race: White PROVDR Attending MD: Jeremiah Magaña MD, [id number] ENDOPROCEDURENAME Procedure: Upper GI endoscopy INDICATION Indications: [...] (Doctor), Martha Kyle RN (Nurse), Moi Huff, Mall Plant Caretaker EDREFPROVIDER Referring: Vanessa Steele CURRENT_MEDS Medicines: See [...] diet. 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 All rights reserved. The codes documented in this report are preliminary and upon front desk worker review may be revised to meet current compliance requirements. ATTDRPART Attending Gonzalesa (more content not included)... Normal [facility] General/Metabolic - Sugey duggan 12-05-2021 General/Metabolic - [...] history, the 84 gene Multi-Cancer Panel from [facility] was recommended and ordered. - I called [...] no significant history of cancer and/or Ashkenazi Mormonism ancestry on their mother's side, no genetic [...] since our discussion today. Lulu Calle MS, [facility] Licensed Genetic Counselor [place] [employer] [phone]. Chief Complaint Patient seen for discussion of [...] 84-gene Multi-Cancer + RNA analysis panel from [facility]. Our discussion is summarized below. We reviewed [...] affected individuals), and endocrine tumors of the gxvkzy-zdfyfu-rhfsqjrllo (GEP) tract. 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 The patient complained of acid reflux [...] Weights & Heights: Date: Weight/Scale Type:Height: 26-Aug-2021 13:02557 kg / standing .8 cm 20-May-2021 12:31011 kg / standing hofng532.8 cm 04-Feb-2021 09:66230 kg / standing aipfg304.8 cm Physical Exam: Constitutional: Appears well and [...] Complet (more content not included)... Normal [facility] Clinic Note - Intakeon 08-26 Clinic Note - Intake Patient Visit Information: Visit TypeFollow Up Visit Source of Informationpatient Accompanied byspouse Admission Information: Admission Since Last VisitYes Name of [facility] Admission [id number] Admission Reason/Detailssepsis and removal of gall bladder [...] 3 Weights & HeightsDate: Weight/Scale Type:Height: 20-May-2021 12:77090 kg / standing .8 cm 04-Feb-2021 09:19492 kg / standing .8 cm 07-Jan-2021 13:10948 kg / standing alvfl831.8 cm SpO2 (%)95 % SpO2 Patient Onroom [...] Last Updated: 26-Aug-2021 13:50 by Latanya Bhat ([facility]) Normal [facility] CULTURE BLOODon 06-09-2021 Microscopic examination of blood, [...] F Trimethoprim/Sulfamethoxa zole <=20 S F Normal [facility] Comment on above: Performed By: #### C BCMAN #### [place] [facility] [address] [place] [address] Dr. Freda Wayne CBC AUTO DIFFon 06-06-2021 BASO # 0.0 103/ul Normal 0.0-0.1 [facility] Comment on above: Performed By: #### P OCGLUC #### [facility] [address] [place], [place] [id number] José Luis Kisha Basophils/100 WBC (Bld) 0.1 % Critically low 0.2-2.0 [facility] Comment on above: Performed By: #### P OCGLUC #### [facility] [address] [place] [address] José Luis Kisha EO # 0.0 103/ul Normal 0.0-0.7 [facility] [place] [facility] Comment on above: Performed By: #### P OCGLUC #### [facility] [address] [place], [place] [id number] José Luis Kisha Eosinophils/100 WBC (Bld) 0.0 % Critically low 0.9-7.0 [facility] Comment on above: Performed By: #### P OCGLUC #### [facility] [address] [address] José Luisdinh Beard Erythrocyte distribution width (RBC) [Ratio] 15.1 % Critically high 11.0-15.0 [facility] Comment on above: Performed By: #### P OCGLUC #### [facility] [address] [place] [address] José Luis Kisha Hematocrit (Bld) [Volume fraction] 34.7 % Critically low 42.0-54.0 [facility] Comment on above: Performed By: #### P OCGLUC #### [facility] [address] [place] [address] José Luis Kisha Hemoglobin (Bld) [Mass/Vol] 10.9 g/dL Critically low 14.0-18.0 [facility] Comment on above: Performed By: #### P OCGLUC #### [facility] [address] [place] [address] José Luis Kisha IG # 0.04 10e3/ul Critically high 0.00-0.03 [facility] Comment on above: Performed By: #### P OCGLUC #### [facility] [address] [place] [address] José Luis Kisha IG % 0.4 % Normal 0.0-0.5 [facility] Comment on above: Performed By: #### P OCGLUC #### [place] [facility] [address] [place] [address] José Luis Kisha LYMPH # 0.5 103/ul Critically low 1.2-3.8 [facility] [place] [facility] Comment on above: Performed By: #### P OCGLUC #### [facility] [address] [place] [address] José Luis Kisha Lymphocytes/100 WBC (Bld) 5.5 % Critically low 20.5-60.0 [facility] Comment on above: Performed By: #### P OCGLUC #### [facility] [address] [place] [address] José Luis Kisha MANUAL DIFF REQ NO Normal [facility] [place] [facility] Comment on above: Performed By: #### P OCGLUC #### [facility] [address] [id number] José Luis Beard MCH (RBC) [Entitic mass] 28.2 pg Normal 25.9-34.0 [facility] Comment on above: Performed By: #### P OCGLUC #### [facility] [address] [place], [place] [id number] José Luis Beard MCHC (RBC) [Mass/Vol] 31.4 g/dL Normal 29.9-35.2 [facility] Comment on above: Performed By: #### P OCGLUC #### [facility] [address] [place], [place] [id number] José Luis Beard MCV (RBC) [Entitic vol] 89.9 fL Normal 80.0-94.0 [facility] Comment on above: Performed By: #### P OCGLUC #### [facility] [address] [place] [address] José Luis Beard MONO # 0.9 103/ul Critically high 0.3-0.8 [facility] Comment on above: Performed By: #### P OCGLUC #### [facility] [address] [place] [address] José Luis Beard Monocytes/100 WBC (Bld) 9.4 % Normal 1.7-12.0 [facility] Comment on above: Performed By: #### P OCGLUC #### [place] [facility] [address] [place] [address] José Luis Beard NEUT # 8.1 103/ul Critically high 1.4-6.5 [facility] Comment on above: Performed By: #### P OCGLUC #### [place] [facility] [address] [place], [place] [id number] José Luis Beard Neutrophils/100 WBC (Bld) 84.6 % Critically high 43.0-75.0 [facility] Comment on above: Performed By: #### P OCGLUC #### [place] [facility] [address] [place], [place] [id number] José Luis Beard Platelet mean volume (Bld) [Entitic vol] 10.5 fL Normal 9.5-13.5 [facility] Comment on above: Performed By: #### P OCGLUC #### [place] [facility] [address] [id number] Joés Luis Kisha PLT 263 103/ul Normal 150-450 [facility] Comment on above: Performed By: #### P OCGLUC #### [facility] [address] [address] José Luis Kisha RBC 3.86 106/ul Critically low 4.70-6.10 [facility] Comment on above: Performed By: #### P OCGLUC #### [place] [facility] [address] [place], [place] [id number] José Luis Kisha WBC 9.6 103/ul Normal 4.0-11.0 [facility] Comment on above: Performed By: #### P OCGLUC #### [place] [facility] [address] [place] [address] José Luis Beard CULTURE BLOODon 06-06-2021 Microscopic examination of blood, culture Culture Observations: NO GROWTH AT 5 DAYS. [facility] Comment on above: Performed By: #### C BCMAN #### [place] [facility] [address] [place] [address] Dr. Freda Wayne POINT OF CARE GLUCOSEon 05-16 Glucose [Mass/Vol] 192 mg/dL Critically high 74-106 [facility] Comment on above: Performed By: #### P OCGLUC #### [facility] [address] [place] [address] Dr. Freda Wayne PROF 14(COMP METB)on 021 Albumin [Mass/Vol] 2.6 g/dL Critically low 3.5-5.0 [facility] Comment on above: Performed By: #### P OCGLUC #### [place] [facility] [address] [place], [place] [id number] José Luis Beard Albumin/Globulin [Mass ratio] 0.7 {ratio} [facility] Comment on above: Performed By: #### P OCGLUC #### [place] [facility] [address] [place] [address] José Luis Kisha ALP [Catalytic activity/Vol] 233 U/L Critically high 38-126 [facility] Comment on above: Performed By: #### P OCGLUC #### [facility] [address] [address] José Luis Kisha ALT [Catalytic activity/Vol] 103 U/L Critically high 21-72 [facility] Comment on above: Performed By: #### P OCGLUC #### [place] [facility] [address] [address] José Luis Kisha Anion gap [Moles/Vol] 12.2 mmol/L Normal Th [facility] Comment on above: Performed By: #### P OCGLUC #### [place] [facility] [address] [address] José Luis Kisha AST [Catalytic activity/Vol] 44 U/L Normal 17-59 [facility] Comment on above: Performed By: #### P OCGLUC #### [facility] [address] [address] José Luis Kisha Bilirubin [Mass/Vol] 0.4 mg/dL Normal 0.2-1.3 [facility] [place] [facility] Comment on above: Performed By: #### P OCGLUC #### [facility] [address] [place] [address] José Luis Kisha Calcium [Mass/Vol] 9.0 mg/dL Normal 8.4-10.2 [facility] [place] [facility] Comment on above: Performed By: #### P OCGLUC #### [facility] [address] [address] José Luis Kisha Chloride [Moles/Vol] 102 mmol/L Normal 98-107 [facility] [place] [facility] Comment on above: Performed By: #### P OCGLUC #### [facility] [address] [address] José Luis Kisha CO2 [Moles/Vol] 26.9 mmol/L Normal 22.0-30.0 [facility] [place] [facility] Comment on above: Performed By: #### P OCGLUC #### [facility] [address] [address] José Luis Kisha Creatinine [Mass/Vol] 1.22 mg/dL Normal 0.66-1.25 [facility] [place] [facility] Comment on above: Performed By: #### P OCGLUC #### [facility] [address] [id number] José Luis Kisha EGFR-AF TAJIK >60 Normal >=60 [facility] Comment on above: Performed By: #### P OCGLUC #### [facility] [address] [id number] José Luis Kisha EGFR-NON AF TAJIK 58 mL/min/1.73m2 Critically low >=60 [facility] Comment on above: Performed By: #### P OCGLUC #### [facility] [address] [address] José Luis Kisha Globulin (S) [Mass/Vol] 3.6 g/dL Normal [facility] Comment on above: Performed By: #### P OCGLUC #### [facility] [address] [address] José Luis Kisha Glucose [Mass/Vol] 152 mg/dL Critically high 74-106 [facility] Comment on above: Performed By: #### P OCGLUC #### [facility] [address] [address] José Luis Kisha Potassium [Moles/Vol] 4.1 mmol/L Normal 3.4-5.0 [facility] Comment on above: Performed By: #### P OCGLUC #### [place] [facility] [address] [place] [address] José Luis Kisha Protein [Mass/Vol] 6.2 g/dL Normal 6.1-8.2 [facility] Comment on above: Performed By: #### P OCGLUC #### [facility] [address] [address] José Luis Kisha Sodium [Moles/Vol] 137 mmol/L Normal 137-145 [facility] Comment on above: Performed By: #### P OCGLUC #### [facility] [address] [address] José Luis Kisha Urea nitrogen [Mass/Vol] 12.0 mg/dL Normal 9.0-20.0 [facility] Comment on above: Performed By: #### P OCGLUC #### [facility] [address] [address] José Luis Kisha Urea nitrogen/Creatinine [Mass ratio] 9.8 mg/mg Normal [facility] [place] [facility] Comment on above: Performed By: #### P OCGLUC #### [facility] [address] [place] [address] José Luis Beard CBC AUTO DIFFon 06-05-2021 BASO # 0.0 103/ul Normal 0.0-0.1 [facility] Comment on above: Performed By: #### P OCGLUC #### [facility] [address] [place] [address] Dr. Freda Wayne Basophils/100 WBC (Bld) 0.2 % Normal 0.2-2.0 [facility] Comment on above: Performed By: #### P OCGLUC #### [facility] [address] [place] [address] Dr. Freda Wayne EO # 0.0 103/ul Normal 0.0-0.7 [facility] Comment on above: Performed By: #### P OCGLUC #### [facility] [address] [place] [address] Dr. Freda Wayne Eosinophils/100 WBC (Bld) 0.4 % Critically low 0.9-7.0 [facility] Comment on above: Performed By: #### P OCGLUC #### [facility] [address] [place] [address] Dr. Freda Wayne Erythrocyte distribution width (RBC) [Ratio] 15.4 % Critically high 11.0-15.0 [facility] Comment on above: Performed By: #### P OCGLUC #### [facility] [address] [place] [address] Dr. Freda Wayne Hematocrit (Bld) [Volume fraction] 35.5 % Critically low 42.0-54.0 [facility] Comment on above: Performed By: #### P OCGLUC #### [facility] [address] [place] [address] Dr. Freda Wayne Hemoglobin (Bld) [Mass/Vol] 11.5 g/dL Critically low 14.0-18.0 [facility] Comment on above: Performed By: #### P OCGLUC #### [facility] [address] [address] [address] Freda Wayne IG # 0.04 10e3/ul Critically high 0.00-0.03 [facility] Comment on above: Performed By: #### P OCGLUC #### [facility] [address] [address] [address] Freda Wayne IG % 0.4 % Normal 0.0-0.5 [facility] Comment on above: Performed By: #### P OCGLUC #### [facility] [address] [address] [address] Freda Wayne LYMPH # 0.7 103/ul Critically low 1.2-3.8 [facility] Comment on above: Performed By: #### P OCGLUC #### [facility] [address] [place] [address] Dr. Freda Wayne Lymphocytes/100 WBC (Bld) 7.4 % Critically low 20.5-60.0 [facility] Comment on above: Performed By: #### P OCGLUC #### [facility] [address] [place] [address] Dr. Freda Wayne MANUAL DIFF REQ NO Normal [facility] Comment on above: Performed By: #### P OCGLUC #### [facility] [address] [place] [address] Dr. Freda Wayne MCH (RBC) [Entitic mass] 28.8 pg Normal 25.9-34.0 [facility] Comment on above: Performed By: #### P OCGLUC #### [facility] [address] [address] [address] Freda Wayne MCHC (RBC) [Mass/Vol] 32.4 g/dL Normal 29.9-35.2 [facility] Comment on above: Performed By: #### P OCGLUC #### [facility] [address] [place] [address] Dr. Freda Wayne MCV (RBC) [Entitic vol] 89.0 fL Normal 80.0-94.0 [facility] Comment on above: Performed By: #### P OCGLUC #### [facility] [address] [address] [address] Freda Wayne MONO # 1.1 103/ul Critically high 0.3-0.8 [facility] Comment on above: Performed By: #### P OCGLUC #### [facility] [address] [place] [address] Dr. Freda Wayne Monocytes/100 WBC (Bld) 10.5 % Normal 1.7-12.0 [facility] Comment on above: Performed By: #### P OCGLUC #### [facility] [address] [place] [address] Dr. Freda Wayne NEUT # 8.2 103/ul Critically high 1.4-6.5 [facility] Comment on above: Performed By: #### P OCGLUC #### [facility] [address] [place] [address] Dr. Freda Wayne Neutrophils/100 WBC (Bld) 81.1 % Critically high 43.0-75.0 [facility] Comment on above: Performed By: #### P OCGLUC #### [facility] [address] [place] [address] Dr. Freda Wayne Platelet mean volume (Bld) [Entitic vol] 10.4 fL Normal 9.5-13.5 [facility] Comment on above: Performed By: #### P OCGLUC #### [facility] [address] [place] [address] Dr. Freda Wayne PLT 262 103/ul Normal 150-450 [facility] Comment on above: Performed By: #### P OCGLUC #### [facility] [address] [place] [address] Dr. Freda Wayne RBC 3.99 106/ul Critically low 4.70-6.10 [facility] Comment on above: Performed By: #### P OCGLUC #### [facility] [address] [place] [address] Dr. Freda Wayne WBC 10.1 103/ul Normal 4.0-11.0 [facility] [place] [facility] Comment on above: Performed By: #### P OCGLUC #### [facility] [address] [place] [address] Dr. Freda Wayne POINT OF CARE GLUCOSEon 05-16 Glucose [Mass/Vol] 208 mg/dL Critically high 74-106 [facility] Comment on above: Performed By: #### P OCGLUC #### [facility] [address] [address] [address] Freda Wayne Glucose [Mass/Vol] 188 mg/dL Critically high 74-106 [facility] Comment on above: Performed By: #### P OCGLUC #### [facility] [address] [address] [address] Freda Wayne Glucose [Mass/Vol] 143 mg/dL Critically high -106 [facility] Comment on above: Performed By: #### P OCGLUC #### [facility] [address] [address] José Luis Beard PROF 14(COMP METB)on 021 Albumin [Mass/Vol] 2.8 g/dL Critically low 3.5-5.0 [facility] Comment on above: Performed By: #### P OCGLUC #### [facility] [address] [address] José Luis Kisha Albumin/Globulin [Mass ratio] 0.8 {ratio} Normal [facility] Comment on above: Performed By: #### P OCGLUC #### [facility] [address] [place] [address] José Luis Kisha ALP [Catalytic activity/Vol] 126 U/L Normal 38-126 [facility] Comment on above: Performed By: #### P OCGLUC #### [facility] [address] [address] José Luis Kisha ALT [Catalytic activity/Vol] 109 U/L Critically high 21-72 [facility] Comment on above: Performed By: #### P OCGLUC #### [facility] [address] [address] José Luis Kisha Anion gap [Moles/Vol] 14.4 mmol/L Normal [facility] Comment on above: Performed By: #### P OCGLUC #### [facility] [address] [address] José Luis Kisha AST [Catalytic activity/Vol] 42 U/L Normal 17-59 [facility] Comment on above: Performed By: #### P OCGLUC #### [facility] [address] [address] José Luis Kisha Bilirubin [Mass/Vol] 0.7 mg/dL Normal 0.2-1.3 [facility] Comment on above: Performed By: #### P OCGLUC #### [facility] [address] [address] José Luis Kisha Calcium [Mass/Vol] 8.7 mg/dL Normal 8.4-10.2 [facility] Comment on above: Performed By: #### P OCGLUC #### [facility] [address] [place] [address] José Luis Kisha Chloride [Moles/Vol] 100 mmol/L Normal 98-107 [facility] Comment on above: Performed By: #### P OCGLUC #### [facility] [address] [address] José Luis Kisha CO2 [Moles/Vol] 26.1 mmol/L Normal 22.0-30.0 [facility] Comment on above: Performed By: #### P OCGLUC #### [facility] [address] [place] [address] José Luis Kisha Creatinine [Mass/Vol] 1.23 mg/dL Normal 0.66-1.25 [facility] Comment on above: Performed By: #### P OCGLUC #### [facility] [address] [place] [address] José Luis Kisha EGFR-AF TAJIK >60 Normal >=60 [facility] Comment on above: Performed By: #### P OCGLUC #### [facility] [address] [place] [address] José Luis Kisha EGFR-NON AF TAJIK 58 mL/min/1.73m2 Critically low >=60 [facility] Comment on above: Performed By: #### P OCGLUC #### [facility] [address] [place] [address] José Luis Kisha Globulin (S) [Mass/Vol] 3.5 g/dL Normal [facility] Comment on above: Performed By: #### P OCGLUC #### [facility] [address] [address] José Luis Kisha Glucose [Mass/Vol] 139 mg/dL Critically high 74-106 [facility] Comment on above: Performed By: #### P OCGLUC #### [facility] [address] [address] José Luis Kisha Potassium [Moles/Vol] 3.5 mmol/L Normal 3.4-5.0 [facility] Comment on above: Performed By: #### P OCGLUC #### [facility] [address] [address] José Luis Kisha Protein [Mass/Vol] 6.3 g/dL Normal 6.1-8.2 [facility] Comment on above: Performed By: #### P OCGLUC #### [facility] [address] [address] José Luis Kisha Sodium [Moles/Vol] 137 mmol/L Normal 137-145 [facility] Comment on above: Performed By: #### P OCGLUC #### [facility] [address] [place] [address] José Luis Kisha Urea nitrogen [Mass/Vol] 12.0 mg/dL Normal 9.0-20.0 [facility] Comment on above: Performed By: #### P OCGLUC #### [facility] [address] [address] José Luis Kisha Urea nitrogen/Creatinine [Mass ratio] 9.8 mg/mg Normal [facility] Comment on above: Performed By: #### P OCGLUC #### [facility] [address] [id number] José Luis Kisha CBC W MANUAL DIFFon 06-04-20 21 ATYPICAL LYMPH # Normal [facility] Comment on above: Performed By: #### C NICOLE #### [facility] [address] [address] [address] Freda Wayne ATYPICAL LYMPH % Normal [facility] Comment on above: Performed By: #### C NICOLE #### [facility] [address] [place] [address] Dr. Freda Wayne BAND # 0.3 103/ul Normal 0.0-0.3 [facility] Comment on above: Performed By: #### C NICOLE #### [facility] [address] [place] [address] Dr. Freda Wayne BAND % 3 % Normal 0-5 [facility] Comment on above: Performed By: #### C NICOLE #### [facility] [address] [place] [address] Dr. Freda Wayne BASOM # 0.00 103/ul Normal 0.00-0.10 [facility] Comment on above: Performed By: #### C NICOLE #### [facility] [address] [place] [address] Dr. Freda Wayne BASOM % 0.0 % Critically low 0.2-2.0 [facility] Comment on above: Performed By: #### C NICOLE #### [facility] [address] [place] [address] Dr. Freda Wayne BLAST # Normal [facility] Comment on above: Performed By: #### C NICOLE #### [facility] [address] [place] [address] Dr. Freda Wayne BLAST % Normal [facility] Comment on above: Performed By: #### C NICOLE #### [facility] [address] [place] [address] Dr. Freda Wayne CORRECTED WBC Normal 4.0-11.0 [facility] Comment on above: Performed By: #### C NICOLE #### [facility] [address] [place] [address] Dr. Freda Wayne EOS # 0.00 103/ul Normal 0.00-0.70 [facility] Comment on above: Performed By: #### C NICOLE #### [facility] [address] [place] [address] Dr. Freda Wayne EOS% 0.0 % Critically low 0.9-7.0 [facility] Comment on above: Performed By: #### C NICOLE #### [facility] [address] [address] [address] Freda Wayne HCT 35.4 % Critically low 42.0-54.0 [facility] Comment on above: Performed By: #### C NICOLE #### [facility] [address] [address] [address] Freda Wayne HGB 11.3 g/dl Critically low 14.0-18.0 [facility] Comment on above: Performed By: #### C NICOLE #### [facility] [address] [address] [address] Freda Wayne LYMPHM # 0.65 103/ul Critically low 1.20-3.80 [facility] Comment on above: Performed By: #### C NICOLE #### [facility] [address] [place] [address] Dr. Freda Wayne LYMPHM% 6.0 % Critically low 20.5-60.0 [facility] Comment on above: Performed By: #### C NICOLE #### [facility] [address] [address] [address] Freda Wayne MCH 28.8 pg Normal 25.9-34.0 [facility] Comment on above: Performed By: #### C NICOLE #### [facility] [address] [place] [address] Dr. Freda Wayne MCHC 31.9 g/dl Normal 29.9-35.2 [facility] Comment on above: Performed By: #### C NICOLE #### [facility] [address] [place] [address] Dr. Freda Wayne MCV 90.3 fL Normal 80.0-94.0 [facility] Comment on above: Performed By: #### C NICOLE #### [facility] [address] [place] [address] Dr. Freda Wayne METAMYELOCYTE # Normal [facility] Comment on above: Performed By: #### C NICOLE #### [facility] [address] [place] [address] Dr. Freda Wayne METAMYELOCYTE % Normal [facility] Comment on above: Performed By: #### C NICOLE #### [facility] [address] [address] [address] Freda Wayne MONOM# 0.76 103/ul Normal 0.30-0.80 [facility] Comment on above: Performed By: #### C NICOLE #### [facility] [address] [address] [address] Freda Wayne MONOM% 7.0 % Normal 1.7-12.0 [facility] Comment on above: Performed By: #### C NICOLE #### [facility] [address] [place] [address] Dr. Freda Wayne MPV 10.2 fL Normal 9.5-13.5 [facility] Comment on above: Performed By: #### C NICOLE #### [facility] [address] [place] [address] Dr. Freda Wayne MYELOCYTE # Normal [facility] Comment on above: Performed By: #### C NICOLE #### [facility] [address] [place] [address] Dr. Freda Wayne MYELOCYTE % Normal [facility] Comment on above: Performed By: #### C NICOLE #### [facility] [address] [place] [address] Dr. Freda Wayne NRBC Normal [facility] Comment on above: Performed By: #### C NICOLE #### [facility] [address] [place] [address] Dr. Freda Wayne PLT 275 103/ul Normal 150-450 [facility] Comment on above: Performed By: #### C NICOLE #### [facility] [address] [place] [address] Dr. Freda Wayne RBC 3.92 106/ul Critically low 4.70-6.10 [facility] Comment on above: Performed By: #### C NICOLE #### [facility] [address] [place] [address] Dr. Freda Wayne RDW 15.5 % Critically high 11.0-15.0 [facility] Comment on above: Performed By: #### C BCMAN #### [facility] [address] [address] [address] Freda Wayne SEG # 9.16 103/ul Critically high 1.40-6.50 [facility] Comment on above: Performed By: #### C SHAINAMAN #### [facility] [address] [address] [address] Freda Wayne SEG % 84.0 % Critically high 43.0-75.0 [facility] Comment on above: Performed By: #### C BCMAN #### [facility] [address] [address] [address] Freda Wayne WBC 10.9 103/ul Normal 4.0-11.0 [facility] Comment on above: Performed By: #### C SHAINAMAN #### [facility] [address] [place] [address] Dr. Freda Wayne NM HEPATOBILIARY SCANon 05-16 [...] by: CINDI RYAN Date: 2021-06-04 00:06 Normal [facility] POINT OF CARE GLUCOSEon 05-16 Glucose [Mass/Vol] 219 mg/dL Critically high 74-106 [facility] Comment on above: Performed By: #### P OCGLUC #### [facility] [address] [address] José Luis Beard Glucose [Mass/Vol] 134 mg/dL Critically high 74-106 [facility] Comment on above: Performed By: #### P OCGLUC #### [facility] [address] [address] [address] Freda Wayne Glucose [Mass/Vol] 196 mg/dL Critically high 74-106 [facility] Comment on above: Performed By: #### P OCGLUC #### [facility] [address] [address] José Luis Beard PROF 14(COMP METB)on 021 Albumin [Mass/Vol] 2.8 g/dL Critically low 3.5-5.0 [facility] Comment on above: Performed By: #### C MP #### [facility] [address] [address] [address] Freda Wayne Albumin/Globulin [Mass ratio] 0.8 {ratio} Normal [facility] Comment on above: Performed By: #### C MP #### [facility] [address] [place] [address] Dr. Freda Wayne ALP [Catalytic activity/Vol] 131 U/L Critically high 38-126 [facility] Comment on above: Performed By: #### C MP #### [facility] [address] [place] [address] Dr. Freda Wayne ALT [Catalytic activity/Vol] 153 U/L Critically high 21-72 [facility] Comment on above: Performed By: #### C MP #### [facility] [address] [place] [address] Dr. Freda Wayne Anion gap [Moles/Vol] 12.6 mmol/L Normal [facility] Comment on above: Performed By: #### C MP #### [facility] [address] [place] [address] Dr. Freda Wayne AST [Catalytic activity/Vol] 79 U/L Critically high 17-59 [facility] Comment on above: Performed By: #### C MP #### [facility] [address] [place] [address] Dr. Freda Wayne Bilirubin [Mass/Vol] 0.7 mg/dL Normal 0.2-1.3 [facility] Comment on above: Performed By: #### C MP #### [facility] [address] [address] [address] Freda Wayne Calcium [Mass/Vol] 8.6 mg/dL Normal 8.4-10.2 [facility] Comment on above: Performed By: #### C MP #### [facility] [address] [address] [address] Freda Wayne Chloride [Moles/Vol] 104 mmol/L Normal 98-107 [facility] Comment on above: Performed By: #### C MP #### [facility] [address] [address] [address] Freda Wayne CO2 [Moles/Vol] 25.2 mmol/L Normal 22.0-30.0 [facility] Comment on above: Performed By: #### C MP #### [facility] [address] [place] [address] Dr. Freda Wayne Creatinine [Mass/Vol] 1.30 mg/dL Critically high 0.66-1.25 [facility] Comment on above: Performed By: #### C MP #### [facility] [address] [place] [address] Dr. Freda Wayne EGFR-AF TAJIK >60 Normal >=60 [facility] Comment on above: Performed By: #### C MP #### [facility] [address] [place] [address] Dr. Freda Wayne EGFR-NON AF TAJIK 54 mL/min/1.73m2 Critically low >=60 [facility] Comment on above: Performed By: #### C MP #### [facility] [address] [address] [address] Freda Wayne Globulin (S) [Mass/Vol] 3.3 g/dL Normal [facility] Comment on above: Performed By: #### C MP #### [facility] [address] [place] [address] Dr. Freda Wayne Glucose [Mass/Vol] 141 mg/dL Critically high 74-106 [facility] Comment on above: Performed By: #### C MP #### [facility] [address] [place] [address] Dr. Freda Wayne Potassium [Moles/Vol] 3.8 mmol/L Normal 3.4-5.0 [facility] Comment on above: Performed By: #### C MP #### [facility] [address] [place] [address] Dr. Freda Wayne Protein [Mass/Vol] 6.1 g/dL Normal 6.1-8.2 [facility] Comment on above: Performed By: #### C MP #### [facility] [address] [place] [address] Dr. Freda Wayne Sodium [Moles/Vol] 138 mmol/L Normal 137-145 [facility] Comment on above: Performed By: #### C MP #### [facility] [address] [place] [address] Dr. Freda Wayne Urea nitrogen [Mass/Vol] 13.0 mg/dL Normal 9.0-20.0 [facility] Comment on above: Performed By: #### C MP #### [facility] [address] [place] [address] Dr. Freda Wayne Urea nitrogen/Creatinine [Mass ratio] 10.0 mg/mg Normal [facility] Comment on above: Performed By: #### C MP #### [facility] [address] [place] [address] Dr. Freda Wayne BLOOD CULTURE ID PANELon A. baumannii Not detected [facility] Comment on above: Performed By: #### B TIAGO #### [facility] [address] [place] [address] Dr. Freda Wayne BCID CONTROLS PASSED Normal [facility] Comment on above: Performed By: #### B TIAGO #### [facility] [address] [place] [address] Dr. Freda Wayne BCIDBTHD BLOOD CULTURE BOTTLE INFORMATION Normal [facility] Comment on above: Performed By: #### B TIAGO #### [facility] [address] [place] [address] Dr. Freda Wayne BCIDHD1 ANTIMICROBIAL RESIST ANCE GENES Normal [facility] Comment on above: Performed By: #### B TIAGO #### [facility] [address] [place] [address] Dr. Freda Wayne BCIDHD2 SEE BELOW [facility] Comment on above: Result Comment: KPC- carbapenem resistance gene, mecA- methecillin resistance gene, van A/B- vancomycin resistance gene Note: Antimicrobial resitance can occur via multiple mechanisms. A Not Detected result for the [employer] antomicrobial resistance gene assays does not indicate antimicrobial susceptibility. Subculturing is required for specis identificationand susceptibility testing of isolates. Performed By: #### B TIAGO #### [facility] [address] [place] [address] Dr. Freda Wayne BCIDHD3 Positive [facility] Comment on above: Performed By: #### B TIAGO #### [facility] [address] [place] [address] Dr. Freda Wayne BCIDHD4 Negative [facility] Comment on above: Performed By: #### B TIAGO #### [facility] [address] [place] [address] Dr. Freda Wayne BCIDHD5 YEAST [facility] Comment on above: Performed By: #### B TIAGO #### [facility] [address] [place] [address] Dr. Freda Wayne BCIDHD6 SEE BELOW [facility] Comment on above: Result Comment: Note : All genus and species BCID [employer] results will be verified post subculturing via Maldi-Tof MS testing methodology. Performed By: #### B TIAGO #### [facility] [address] [place] [address] Dr. Freda Wayne Bottle Set: Set 1 [facility] Comment on above: Performed By: #### B TIAGO #### [facility] [address] [place] [address] Dr. Freda Wayne Bottle: Aerobic [facility] Comment on above: Performed By: #### B TIAGO #### [facility] [address] [place] [address] Dr. Freda Wayne Yarely albicans Not detected [facility] Comment on above: Performed By: #### B TIAGO #### [facility] [address] [place] [address] Dr. Freda Wayne Yarely glabrata Not detected Normal [facility] Comment on above: Performed By: #### B TIAGO #### [facility] [address] [place] [address] Dr. Freda Wayne Yarely Krusei Not detected Normal [facility] Comment on above: Performed By: #### B TIAGO #### [facility] [address] [place] [address] Dr. Freda Wayne Yarely Parapsilosis Not detected Normal [facility] Comment on above: Performed By: #### B TIAGO #### [facility] [address] [place] [address] Dr. Freda Wayne Yarely Tropicalis Not detected Normal [facility] Comment on above: Performed By: #### B TIAGO #### [facility] [address] [place] [address] Dr. Freda Wayne E. Cloacae complex Not detected Normal [facility] Comment on above: Performed By: #### B TIAGO #### [facility] [address] [place] [address] Dr. Freda Wayne Enterobacteriaceae Detected Critically abnormal [facility] Comment on above: Performed By: #### B TIAGO #### [facility] [address] [place] [address] Dr. Freda Wayne Enterococcus Not detected Normal [facility] Comment on above: Performed By: #### B TIAGO #### [facility] [address] [place] [address] Dr. Freda Wayne Escheria coli Not detected Normal [facility] Comment on above: Performed By: #### B TIAGO #### [facility] [address] [place] [address] Dr. Freda Wayne K. oxytoca Not detected Normal [facility] Comment on above: Performed By: #### B TIAGO #### [facility] [address] [place] [address] Dr. Freda Wayne K. pneumoniae Detected Critically abnormal [facility] Comment on above: Performed By: #### B TIAGO #### [facility] [address] [place] [address] Dr. Freda Wayne KPC Resistant Gene Not detected Normal [facility] Comment on above: Performed By: #### B TIAGO #### [facility] [address] [place] [address] Dr. Freda Wayne List. monocytogenes Not detected Normal [facility] Comment on above: Performed By: #### B TIAGO #### [facility] [address] [place] [address] Dr. Freda Wayne mecA Resistant Gene Not Applicable Normal [facility] Comment on above: Performed By: #### B TIAGO #### [facility] [address] [place] [address] Dr. Freda Wayne Proteus Not detected Normal [facility] Comment on above: Performed By: #### B TIAGO #### [facility] [address] [place] [address] Dr. Freda Wayne Pseud. aeruginosa Not detected Normal [facility] Comment on above: Performed By: #### B TIAGO #### [facility] [address] [place] [address] Dr. Freda Wayne Seratia marcescens Not detected Normal [facility] Comment on above: Performed By: #### B TIAGO #### [facility] [address] [place] [address] Dr. Freda Wayne Site: left AC Normal [facility] Comment on above: Performed By: #### B TIAGO #### [facility] [address] [place] [address] Dr. Freda Wayne Staph. aureus Not detected Normal [facility] Comment on above: Performed By: #### B TIAGO #### [facility] [address] [place] [address] Dr. Freda Wayne Staphylococcus Not detected Normal [facility] Comment on above: Performed By: #### B TIAGO #### [facility] [address] [place] [address] Dr. Freda Wayne Strep. agalactiae Not detected Normal [facility] Comment on above: Performed By: #### B TIAGO #### [facility] [address] [place] [address] Dr. Freda Wayne Strep. pneumoniae Not detected Normal [facility] Comment on above: Performed By: #### B TIAGO #### [facility] [address] [place] [address] Dr. Freda Wayne Strep. pyogenes Not detected Normal [facility] Comment on above: Performed By: #### B TIAGO #### [facility] [address] [place] [address] Dr. Freda Wayne Streptococcus Not detected Normal [facility] Comment on above: Performed By: #### B TIAGO #### [facility] [address] [place] [address] Dr. Freda Wayne Gneevieve/B Resist. Gene Not Applicable Normal [facility] Comment on above: Performed By: #### B TIAGO #### [facility] [address] [place] [address] Dr. Freda Wayne CBC W MANUAL DIFFon 06-03-20 21 ATYPICAL LYMPH # Normal [facility] Comment on above: Performed By: #### P OCGLUC #### [facility] [address] [place] [address] José Luis Kisha ATYPICAL LYMPH % Normal [facility] Comment on above: Performed By: #### P OCGLUC #### [facility] [address] [place] [address] José Luis Kisha BAND # Normal 0.0-0.3 [facility] Comment on above: Performed By: #### P OCGLUC #### [facility] [address] [place] [address] José Luis Kisha BAND % Normal 0-5 [facility] Comment on above: Performed By: #### P OCGLUC #### [facility] [address] [place] [address] José Luis Kisha BASOM # 0.00 103/ul Normal 0.00-0.10 [facility] Comment on above: Performed By: #### P OCGLUC #### [facility] [address] [place] [address] José Luis Kisha BASOM % 0.0 % Critically low 0.2-2.0 [facility] Comment on above: Performed By: #### P OCGLUC #### [facility] [address] [address] José Luis Kisha BLAST # Normal [facility] Comment on above: Performed By: #### P OCGLUC #### [facility] [address] [address] José Luis Kisha BLAST % Normal [facility] Comment on above: Performed By: #### P OCGLUC #### [facility] [address] [address] José Luis Kisha CORRECTED WBC Normal 4.0-11.0 [facility] Comment on above: Performed By: #### P OCGLUC #### [facility] [address] [place] [address] José Luis Kisha EOS # 0.00 103/ul Normal 0.00-0.70 [facility] Comment on above: Performed By: #### P OCGLUC #### [facility] [address] [place] [address] José Luis Kisha EOS% 0.0 % Critically low 0.9-7.0 [facility] Comment on above: Performed By: #### P OCGLUC #### [facility] [address] [place] [address] José Luis Kisha HCT 41.0 % Critically low 42.0-54.0 [facility] Comment on above: Performed By: #### P OCGLUC #### [facility] [address] [place] [address] José Luis Kisha HGB 13.0 g/dl Critically low 14.0-18.0 [facility] [place] [facility] Comment on above: Performed By: #### P OCGLUC #### [facility] [address] [place] [address] José Luis Kisha LYMPHM # 0.18 103/ul Critically low 1.20-3.80 [facility] [place] [facility] Comment on above: Performed By: #### P OCGLUC #### [facility] [address] [place] [address] José Luis Kisha LYMPHM% 1.0 % Critically low 20.5-60.0 [facility] Comment on above: Performed By: #### P OCGLUC #### [facility] [address] [address] José Luis Beard MCH 28.6 pg Normal 25.9-34.0 [facility] [place] [facility] Comment on above: Performed By: #### P OCGLUC #### [facility] [address] [place] [address] José Luis Beard MCHC 31.7 g/dl Normal 29.9-35.2 [facility] Comment on above: Performed By: #### P OCGLUC #### [facility] [address] [place] [address] José Luisdinh Mathuren MCV 90.1 fL Normal 80.0-94.0 [facility] [place] [facility] Comment on above: Performed By: #### P OCGLUC #### [facility] [address] [place] [address] José Luis Kisha METAMYELOCYTE # Normal [facility] [place] [facility] Comment on above: Performed By: #### P OCGLUC #### [facility] [address] [place] [address] José Luis Kisha METAMYELOCYTE % Normal [facility] [place] [facility] Comment on above: Performed By: #### P OCGLUC #### [facility] [address] [place] [address] José Luis Kisha MONOM# 0.55 103/ul Normal 0.30-0.80 [facility] Comment on above: Performed By: #### P OCGLUC #### [facility] [address] [place] [address] José Luisdinh Beard MONOM% 3.0 % Normal 1.7-12.0 [facility] [place] [facility] Comment on above: Performed By: #### P OCGLUC #### [facility] [address] [place] [address] José Luisdinh Beard MPV 10.1 fL Normal 9.5-13.5 [facility] [place] [facility] Comment on above: Performed By: #### P OCGLUC #### [facility] [address] [place] [address] José Luis Kisha MYELOCYTE # Normal [facility] [place] [facility] Comment on above: Performed By: #### P OCGLUC #### [facility] [address] [place], [place] [id number] José Luis Beard MYELOCYTE % Normal [facility] [place] [facility] Comment on above: Performed By: #### P OCGLUC #### [facility] [address] [address] José Luis Beard NRBC Normal [facility] Comment on above: Performed By: #### P OCGLUC #### [facility] [address] [id number] José Luis Beard PLT 374 103/ul Normal 150-450 [facility] [place] [facility] Comment on above: Performed By: #### P OCGLUC #### [facility] [address] [place] [address] José Luis Beard RBC 4.55 106/ul Critically low 4.70-6.10 [facility] Comment on above: Performed By: #### P OCGLUC #### [facility] [address] [place] [address] José Luis Beard RDW 15.6 % Critically high 11.0-15.0 [facility] Comment on above: Performed By: #### P OCGLUC #### [facility] [address] [place] [address] José Luis Beard SEG # 17.57 103/ul Critically high 1.40-6.50 [facility] Comment on above: Performed By: #### P OCGLUC #### [facility] [address] [place] [address] José Luis Beard SEG % 96.0 % Critically high 43.0-75.0 [facility] Comment on above: Performed By: #### P OCGLUC #### [facility] [address] [place] [address] José Luis Beard WBC 18.3 103/ul Critically high 4.0-11.0 [facility] Comment on above: Performed By: #### P OCGLUC #### [facility] [address] [place] [address] ABD/PELV W CONon [...] CINDI SOMMER Date: 2021-06-03 14:15 Normal [facility] [place] [facility] CULTURE BLOODon 06-03-2021 Microscopic examination of blood, culture Culture Observations: NO GROWTH AT 5 DAYS. Normal [facility] Comment on above: Performed By: #### B LDCX2 #### [facility] [address] [place] [address] Dr. Freda Wayne Covid-19 PCR (CVDTB)on 05-16 SARS-CoV-2 (COVID-19) RNA SHRUTI+probe Ql (Unsp spec) Not detected Normal NOT DETECTED [facility] Comment on above: Result Comment: When diagnostic testing is negative, the possibility of a false negative should be considered in the context of a patient's recent exposures and the presence of clinical signs and symptoms consistent with SARS-CoV-2. This test is not yet approved or cleared by the [place] Food and Drug Administration (FDA). This test was developed by [employer], [place], [place]. The performance characteristics of this test were validated by [facility]. The results are not intended to be used as the sole means for clinical diagnosis or patient management decisions. [facility] [place] [facility] is authorized under Clinical Laboratory [...] for this test is supported by the [place] of Health and Human Service's declaration that [...] used). Performed By: #### C BCMAN #### [facility] [address] [place] [address] Dr. Freda Wayne ER URINE PROFILEon 1 Bilirubin Ql (U) Negative Normal NEGATIVE [facility] Comment on above: Performed By: #### P OCGLUC #### [facility] [address] [place] [address] José Luis Beard Clarity (U) CLEAR Normal CLEAR [facility] Comment on above: Performed By: #### P OCGLUC #### [facility] [address] [place] [address] José Luis Kisha Color (U) YELLOW Normal YELLOW [facility] Comment on above: Performed By: #### P OCGLUC #### [facility] [address] [place] [address] José Luisdinh Mathuren ERUAHD A micrscopic examina tion will be performed if indicated. Normal [facility] [place] [facility] Comment on above: Performed By: #### P OCGLUC #### [facility] [address] [place] [address] José Luis Kisha Glucose Ql (U) 100 mg/dl Abnormal NEGATIVE [facility] Comment on above: Performed By: #### P OCGLUC #### [facility] [address] [place] [address] José Luis Kisha Hemoglobin Ql (U) Negative Normal NEGATIVE [facility] Comment on above: Performed By: #### P OCGLUC #### [facility] [address] [place] [address] José Luis Kisha Ketones Ql (U) Negative Normal NEGATIVE [facility] Comment on above: Performed By: #### P OCGLUC #### [facility] [address] [place] [address] José Luis Kisha LEUKOCYTES Negative Normal NEGATIVE [facility] Comment on above: Performed By: #### P OCGLUC #### [facility] [address] [place] [address] José Luis Kisha Nitrite Ql (U) Negative Normal NEGATIVE [facility] Comment on above: Performed By: #### P OCGLUC #### [facility] [address] [place] [address] José Luis Kisha pH (U) 6.0 [pH] Normal 5-9 [facility] Comment on above: Performed By: #### P OCGLUC #### [facility] [address] [place] [address] José Luis Kisha Protein (U) [Mass/Vol] 30 mg/dL Abnormal NEGAT CYNTHIA/ TRACE [facility] Comment on above: Performed By: #### P OCGLUC #### [facility] [address] [place] [address] José Luis Mathuren SPEC GRAVITY 1.020 Normal 1.005-<=1. 025 [facility] Comment on above: Performed By: #### P OCGLUC #### [facility] [address] [place] [address] José Luis Kisha UR MICRO IND INDICATED Normal [facility] Comment on above: Performed By: #### P OCGLUC #### [facility] [address] [place] [address] José Luis Kisha Urobilinogen Qn (U) 1.0 {Bassem'U}/dL Normal 0.2 - 1. 0 [facility] Comment on above: Performed By: #### P OCGLUC #### [facility] [address] [place] [address] José Luis Kisha LACTATE/LACTIC ACIDon 2020 Lactate [Moles/Vol] 2.0 mmol/L Normal 0.7-2.0 [facility] Comment on above: Performed By: #### P OCGLUC #### [facility] [address] [place] [address] Dr. Freda Wayne LIPASEon 06-03-2021 Lipase [Catalytic activity/Vol] 207.0 U/L Normal 23.0-300.0 [facility] Comment on above: Performed By: #### P OCGLUC #### [facility] [address] [place] [address] Dr. Freda Wayne POINT OF CARE GLUCOSEon 05-16 Glucose [Mass/Vol] 107 mg/dL Critically high 74-106 [facility] Comment on above: Performed By: #### P OCGLUC #### [facility] [address] [place] [address] José Luis Beard PROF 14(COMP METB)on 021 Albumin [Mass/Vol] 3.9 g/dL Normal 3.5-5.0 [facility] Comment on above: Performed By: #### P OCGLUC #### [facility] [address] [place] [address] Dr. Freda Wayne Albumin/Globulin [Mass ratio] 1.1 {ratio} Normal [facility] Comment on above: Performed By: #### P OCGLUC #### [facility] [address] [place] [address] Dr. Freda Wayne ALP [Catalytic activity/Vol] 181 U/L Critically high 38-126 [facility] Comment on above: Performed By: #### P OCGLUC #### [facility] [address] [place] [address] Dr. Freda Wayne ALT [Catalytic activity/Vol] 196 U/L Critically high 21-72 [facility] Comment on above: Performed By: #### P OCGLUC #### [facility] [address] [place] [address] Dr. Freda Wayne Anion gap [Moles/Vol] 15.4 mmol/L Normal [facility] Comment on above: Performed By: #### P OCGLUC #### [facility] [address] [address] [address] Freda Wayne AST [Catalytic activity/Vol] 217 U/L Critically high 17-59 [facility] Comment on above: Performed By: #### P OCGLUC #### [facility] [address] [address] [address] Freda Wayne Bilirubin [Mass/Vol] 1.1 mg/dL Normal 0.2-1.3 [facility] Comment on above: Performed By: #### P OCGLUC #### [facility] [address] [address] [address] Freda Wayne Calcium [Mass/Vol] 9.7 mg/dL Normal 8.4-10.2 [facility] Comment on above: Performed By: #### P OCGLUC #### [facility] [address] [address] [address] Freda Wayne Chloride [Moles/Vol] 101 mmol/L Normal 98-107 [facility] Comment on above: Performed By: #### P OCGLUC #### [facility] [address] [address] [address] Freda aWyne CO2 [Moles/Vol] 24.4 mmol/L Normal 22.0-30.0 [facility] Comment on above: Performed By: #### P OCGLUC #### [facility] [address] [address] [address] Freda Wayne Creatinine [Mass/Vol] 1.16 mg/dL Normal 0.66-1.25 [facility] Comment on above: Performed By: #### P OCGLUC #### [facility] [address] [address] [address] Freda Wayne EGFR-AF TAJIK >60 Normal >=60 [facility] Comment on above: Performed By: #### P OCGLUC #### [facility] [address] [address] [address] Freda Wayne EGFR-NON AF TAJIK >60 Normal >=60 [facility] Comment on above: Performed By: #### P OCGLUC #### [facility] [address] [address] [address] Freda Wayne Globulin (S) [Mass/Vol] 3.6 g/dL Normal [facility] Comment on above: Performed By: #### P OCGLUC #### [facility] [address] [address] [address] Freda Wayne Glucose [Mass/Vol] 213 mg/dL Critically high 74-106 [facility] Comment on above: Performed By: #### P OCGLUC #### [facility] [address] [address] [address] Freda Wayne Potassium [Moles/Vol] 3.8 mmol/L Normal 3.4-5.0 [facility] Comment on above: Performed By: #### P OCGLUC #### [facility] [address] [address] [address] Freda Wayne Protein [Mass/Vol] 7.5 g/dL Normal 6.1-8.2 [facility] Comment on above: Performed By: #### P OCGLUC #### [facility] [address] [place] [address] Dr. Freda Wayne Sodium [Moles/Vol] 137 mmol/L Normal 137-145 [facility] Comment on above: Performed By: #### P OCGLUC #### [facility] [address] [address] [address] Freda Wayne Urea nitrogen [Mass/Vol] 16.0 mg/dL Normal 9.0-20.0 [facility] Comment on above: Performed By: #### P OCGLUC #### [facility] [address] [address] [address] Freda Wayne Urea nitrogen/Creatinine [Mass ratio] 13.8 mg/mg Normal [facility] Comment on above: Performed By: #### P OCGLUC #### [facility] [address] [place] [address] Dr. Freda Wayne PROTIMEon 06-03-2021 INR Coag (PPP) [Relative time] 1.05 {INR} Normal [facility] Comment on above: Performed By: #### P T, PTT #### [facility] [address] [place] [address] Dr. Freda Wayne INR GUIDELINES SEE BELOW Normal [facility] Comment on above: Result Comment: KAYLA RED INR: 2.0 - 3.0 CONDITIONS NOT LISTED BELOW 2.5 - 3.5 FOR PROSTHETIC HEART VALVE REPLACEMENT 2.5 - 3.5 RECURRENT THROMBOSIS Performed By: #### P T, PTT #### [facility] [address] [place] [address] Dr. Freda Wayne PT Coag (PPP) [Time] 11.3 s Normal 9.0-11.6 [facility] Comment on above: Performed By: #### P T, PTT #### [facility] [address] [place] [address] Dr. Freda Wayne PTTon 06-03-2021 aPTT Coag (Bld) [Time] 28.2 s Normal 22.3-36.2 [facility] Comment on above: Performed By: #### P T, PTT #### [facility] [address] [place] [address] Dr. Freda Wayne TROPONIN, HIGH SENSITIVITYon 06-03-2021 HSTROP 10.8 pg/mL Normal 4.0-42.2 [facility] Comment on above: Result Comment: CUT- OFF POINTS HAVE BEEN ESTABLISHED BASED ON THE FOURTH UNIVERSAL DEFINITIONS OF MYOCARDIAL INFARCTION. THE UPPER REFERENCE LIMIT (URL) OF TROPONIN, DEFINED THE 99TH PERCENTILE OF cTnI DISTRIBUTION IN A REFERENCE POPULATION, HAS BEEN CONFIRMED THE DECISION THRESHOLD FOR AK DIAGNOSIS. Performed By: #### P OCGLUC #### [facility] [address] [place] [address] Dr. Freda Wayne URINE MICROSCOPIC ONLYon BACTERIA NONE SEEN Normal NONE SEEN [facility] Comment on above: Performed By: #### P OCGLUC #### [facility] [address] [place] [address] José Luis Beard Bacteria identified Cx Nom (U) NOT INDICATED Normal [facility] Comment on above: Performed By: #### P OCGLUC #### [facility] [address] [address] José Luis Kisha CAST NONE SEEN Normal NONE SEEN [facility] Comment on above: Performed By: #### P OCGLUC #### [facility] [address] [place] [address] José Luis Kisha Crystals LM Nom (Urine sed) NONE SEEN Normal NONE SEEN [facility] Comment on above: Performed By: #### P OCGLUC #### [facility] [address] [address] José Luis Kisha Epithelial cells LM Ql (Urine sed) RARE Normal NONE SEEN /RARE [facility] Comment on above: Performed By: #### P OCGLUC #### [facility] [address] [place] [address] José Luis Kisha MUCOUS TRACE Abnormal NONE SEEN [facility] Comment on above: Performed By: #### P OCGLUC #### [facility] [address] [place], [place] [id number] José Luis Kisha RBC 0-2 Normal 0-2 [facility] Comment on above: Performed By: #### P OCGLUC #### [facility] [address] [place], [place] [id number] José Luis Kisha WBC 0-2 Abnormal NONE SEEN [facility] Comment on above: Performed By: #### P OCGLUC #### [facility] [address] [place], [place] [id number] José Luis Kisha US SINGLE QUAD RT [...] by: CINDI SOMMER Date: 2021-06-03 09:27 Normal [facility] XR CHEST 1 Von 06-03-2021 XR [...] by: CINDI SOMMER Date: 2021-06-03 09:56 Normal [facility] Clinic Note - Heme Onc Sched [facility] 05-22-2021 Clinic Note - Heme Onc Scheduling Retrieve Patient Instructions: Patient Instructions: Patient Instructions: RetrievePatient Instructions COMMUNICATION ORDERS NOTES: Communication Orders NotesPer scheduling note on appointment wifes patient wants apt on 08/26 End of Visit Documentation: Clinic Location/Phone Number: Clinic Location/Phone Number: [place] [phone] End Of Visit MU Report Item: Visit Summary given or mailed to patientyes Mailed Appointments Electronic Signatures: Candice Shirley (PT ACCT REP) (Signed 22-May-2021 10:02) Authored: Retrieve Patient Instructions, COMMUNICATION ORDERS NOTES, End of Visit Documentation Last Updated: 22-May-2021 10:02 by Candice Shirley (PT ACCT REP) Normal [facility] Clinic Note - Heme Onc-Follo w Up Visiton 05-20-2021 Clinic Note - Heme Onc-Follow Up Visit Patient Visit Information: Visit Type: Follow Up Visit History of Present Illness: ID Statement: YUSEF CAR is a 71 year old Male Chief Complaint: Duodenal neuroendocrine tumor Interval History: 70 years old gentleman from [place], [place] who has been referred to me from [facility]. The patient complained of acid reflux [...] No (more content not included)... Normal [facility] Clinic Note - Intakeon 05-20 Clinic Note [...] 3 Weights & HeightsDate: Weight/Scale Type:Height: 04-Feb-2021 09:09952 kg / standing .8 cm 07-Jan-2021 13:99705 kg / standing pipzu085.8 cm 19-Dec-2020 13:76180 kg / standing .8 cm SpO2 (%)98 [...] Updated: 20-May-2021 12:55 by Edith Ruvalcaba) Normal [facility] - Chemistry and C hemistry - challengeon 05-01-2021 Glucose [Mass/Vol] 132 mg/dL above high threshold 74 - 99 [facility] [address] DO Work Phone: No Panel Informationon 05-01 [facility] [address] DO Work Phone: [email or web address]?={[email or web address] [email or web address]} [facility] [address] DO Work [...] make patient management decisions.Fact sheet for providers: https://www.fda.gov/media/961088/downloadFact sheet for patients: https://www.fda.gov/media/916887/downloadThis test has received FDA Emergency Use Authorization (EUA) and has been verified by [facility] ([facility]). This test is only authorized for the duration of time that circumstances exist to justify the authorization of the emergency use of in vitro diagnostic tests for the detection of SARS-CoV-2 virus and/or diagnosis of COVID-19 infection under section 564(b)(1) of the Act, 21 U.S.C. 360bbb-3(b)(1), unless the authorization is terminated or revoked sooner. [facility] is certified under CLIA-88 as qualified to perform high complexity testing. Testing is performed in the [facility] laboratories located at [address] [place] [address]. Provider Communicationon Provider Communication Dear Dr. Steele, [...] should questions arise Sincerely, Irwin Cespedes MD, [facility] Clinical Regional Transfer Liaison [facility] Gastroenterology [facility] [address] [place] [address] Patient Care Team Care Team MemberRoleSpecialtyOffice Number Vanessa Steele MD [facility] Care ProviderEd[facility] [phone] Active Problems Problems BPH with obstruction/lower urinary [...] Feb 05 2021 2:42PM EST (Author) Normal [facility] - Chemistry and C hemistry - challengeon 01-23-2021 Glucose [Mass/Vol] 106 mg/dL above high threshold 74 - 99 [facility] [address] DO Work Phone: No Panel Informationon 01-23 [facility] 450 DO Work Phone: [email or web address]?={F [id number]} [facility] [place] [address] DO Work Phone: [facility] 450 DO Work Phone: Complete Blood Count + Diffe rentialon 01-11-2021 Basophils/100 WBC (Bld) 0.4 % 0.0 - 2.0 U [facility] Work Phone: Erythrocyte distribution width (RBC) [Ratio] 15.6 % above high threshold See Below [facility] Work Phone: Comment on above: Reference Range: 11. 5 - 14.5 Hematocrit (Bld) [Volume fraction] 40.9 % below low threshold See Below [facility] Work Phone: Comment on above: Reference Range: 41. 0 - 52.0 Hemoglobin (Bld) [Mass/Vol] 12.9 g/dL below low threshold See Below [facility] Work Phone: [phone] Comment on above: Reference Range: 13. 5 - 17.5 Lymphocytes/100 WBC (Bld) 16.1 % See Below [facility] Work Phone: [phone] Comment on above: Reference Range: 13. 0 - 44.0 MCHC (RBC) [Mass/Vol] 31.5 g/dL below low threshold See Below [facility] Work Phone: [phone] Comment on above: Reference Range: 32. 0 - 36.0 MCV (RBC) [Entitic vol] 92 fL 80 - 100 [facility] Work Phone: [phone] Monocytes/100 WBC (Bld) 7.4 % 2.0 - 10.0 U [facility] Work Phone: [phone] Neutrophils/100 WBC (Bld) 73.8 % See Below [facility] Work Phone: [phone] Comment on above: Reference Range: 40. 0 - 80.0 Platelets (Bld) [#/Vol] 360 10*3/uL 150 - 450 [facility] Work Phone: [phone] RBC (Bld) [#/Vol] 4.45 {x10E12/L} below low threshold See Below [facility] Work Phone: [phone] Comment on above: Reference Range: 4.5 0 - 5.90 WBC (Bld) [#/Vol] 7.7 10*3/uL 4.4 - 11.3 [facility] Work Phone: [phone] Complete Blood Count + Differential 0.03 {x10E9/L} See Below [facility] Work Phone: [phone] Comment on above: Reference Range: 0.0 0 - 0.10 Complete Blood Count + Differential 0.15 {x10E9/L} See Below [facility] Work Phone: [phone] Comment on above: Reference Range: 0.0 0 - 0.40 Complete Blood Count + Differential 0.57 {x10E9/L} See Below [facility] Work Phone: Comment on above: Reference Range: 0.0 5 - 0.80 Complete Blood Count + Differential 1.24 {x10E9/L} See Below [facility] Work Phone: Comment on above: Reference Range: 0.8 0 - 3.00 Complete Blood Count + Differential 5.68 {x10E9/L} above high threshold See Below [facility] Work Phone: Comment on above: Reference Range: 1.6 0 - 5.50 Complete Blood Count + Differential 2.0 % 0.0 - 6.0 [facility] Work Phone: Complete Blood Count + Differential 0.3 % 0.0 - 0.9 [facility] Work Phone: Comment on above: Immature Granulocyte Count (IG) includes promyelocytes, myelocytes and metamyelocytes but does not include bands. Percent differential counts (%) should be interpreted in the context of the absolute cell counts (cells/L). Laboratory - Chemistry and C hemistry - challengeon 01-11-2021 Albumin BCP dye [Mass/Vol] 4.1 g/dL 3.4 - 5.0 [facility] Work Phone: ALP [Catalytic activity/Vol] 82 U/L 33 - 136 [facility] Work Phone: ALT With P-5'-P [Catalytic activity/Vol] 12 U/L 10 - 52 [facility] Work Phone: Comment on above: Patients treated wit h Sulfasalazine may generate falsely decreased results for ALT. Anion gap [Moles/Vol] 12 mmol/L 10 - 20 [facility] Work Phone: AST With P-5'-P [Catalytic activity/Vol] 12 U/L 9 - 39 [facility] Work Phone: Bilirubin [Mass/Vol] 0.5 mg/dL 0.0 - 1.2 [facility] Work Phone: Calcium [Mass/Vol] 9.8 mg/dL 8.6 - 10.3 [facility] Work Phone: Chloride [Moles/Vol] 103 mmol/L 98 - 107 [facility] Work Phone: CO2 [Moles/Vol] 30 mmol/L 21 - 32 [facility] Work Phone: Creatinine [Mass/Vol] 1.20 mg/dL See Below [facility] Work Phone: Comment on above: Reference Range: 0.5 0 - 1.30 Glucose [Mass/Vol] 147 mg/dL above high threshold 74 - 99 [facility] Work Phone: Potassium [Moles/Vol] 4.5 mmol/L 3.5 - 5.3 [facility] Work Phone: Protein [Mass/Vol] 7.0 g/dL 6.4 - 8.2 [facility] Work Phone: [phone] Sodium [Moles/Vol] 140 mmol/L 136 - 145 [facility] Work Phone: Urea nitrogen [Mass/Vol] 19 mg/dL 6 - 23 [facility] Work Phone: MRI Liver w/wo Contraston MR Liver WO and W contrast IV Normal [facility] Work Phone: No Panel Informationon 01-11 73 {mL/min/1.73m2} >60 [facility] Work Phone: Comment on above: CALCULATIONS OF LACEY MATED GFR ARE PERFORMED USING THE MDRD STUDY EQUATION FOR THE IDMS-TRACEABLE CREATININE METHODS. CLIN CHEM 2007;53:766-72 60 {mL/min/1.73m2} Abnormal >60 [facility] Work Phone: Prostate Specific Antigenon 01-11-2021 Prostate specific Ag [Mass/Vol] 0.29 ng/mL See Below [facility] Work Phone: Comment on above: Reference Range: 0.0 0 - 4.00The FDA requires that the method used for PSA assay be reported to the physician. Values obtained with different assay methods must not be used interchangeably. This test was performed at [facility] using the thereNow PSA method, which is a sandwich immunoassay using chemiluminescence for quantitation. The assay is approvedfor measurement of prostate-specific antigen (PSA) in serum and may be used in conjunction with a digital rectalexamination in men 50 years and older as an aid in detection of prostate cancer. 6-Qkagz-waaxaelwr inhibitors (e.g. Proscar, Finasteride, Avodart, Dutasteride and [...] visit. 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 He underwent EGD on 11/28/2020 at the [facility] in [facility] for a longstanding history of gastroesophageal reflux [...] 01/08/2021 2:21:14 PM Lisinopril TABS Recorded By: Neelmia Brock; 01/08/2021 2:21:14 PM Current Meds Medication [...] Calcium 10 MG Oral Tablet Results/Data Gastrin, [id number] 08:49AMNon Ambulatory, Provider Ordering Provider: NEFTALI KNOWLES [id number] Test NameResultFlagReference Gastrin, Serum21 pg/mL0-100 Performed By: [employer] [address] [place] [address] Adult Literacy Instructor: Katharine Vergara MD CT Abdomen and Pelvis with IV [id number] 05[facility] Ordering Provider: NEFTALI KNOWLES [id number] Abdomen and Pelvis with [...] for staging purposes. COMPARISON: None. ACCESSION NUMBER(S): [id number] ORDERING CLINICIAN: NEFTALI KNOWLES TECHNIQUE: CT of [...] is n (more content not included)... 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,N13.8) Orders SocHx: Non-smoker Tobacco Use Screening; Status:Complete; Done: 08Jan2021 Perform:Not Applicable;Ordered; For:SocHx: Non-smoker; Ordered By:Neelima Brock; [...] MG Oral Tablet Vitals Vital Signs Recorded: [id number] 02:15PM Dhkksbdafak05.5 F Heart Rate76 Sfkplzqi182 Bgerheybv93 Height5 ft 10 in Pdfarp582 lb BMI Uxmzutrptc00.87 kg/m2 BSA Calculated2.27 Tobacco Useb) No Fall [...] Results/Data CT Abdomen and Pelvis with IV [id number] 05:35PMNon Ambulatory, Provider Ordering Provider: NEFTALI KNOWLES [id number] Abdomen and Pelvis with [...] for st (more content not included)... Normal [facility] Tobacco Screening.on 021 Fall risk assessment a) No falls within the last year [facility] Work Phone: Tobacco use status CPHS b) No M -[facility] Work Phone: Complete Blood Count + Diffe rentialon 12-26-2020 Hematocrit (Bld) [Volume fraction] Canceled [facility] Work Phone: Hemoglobin (Bld) [Mass/Vol] Canceled [facility] Work Phone: [phone] Platelets (Bld) [#/Vol] Canceled [facility]: 151 RBC (Bld) [#/Vol] Canceled MG-S[facility] Work Phone: 151 Complete Blood Count + Differential [facility]anceled [facility] Work [facility]: 151 Comment on above: [...] 12-26-2020 Gastrin [Mass/Vol] 21 pg/mL 0-100 [facility] Work Phone: [phone] Comment on above: Performed By: MARISSA simmons[address] [place] [id number] Director: Katharine Vergara MD Laboratory - Chemistry and C hemistry - challengeon 12-26-2020 Albumin BCP dye [Mass/Vol] Canceled [facility] Work Phone: [phone] ALP [Catalytic activity/Vol] Canceled -[facility] Work Phone: 151 ALT With P-5'-P [Catalytic activity/Vol] Canceled [facility] Work Phone: 151 Comment on above: Patients treated wit h Sulfasalazine may generate falsely decreased results for ALT. AST With P-5'-P [Catalytic activity/Vol] Canceled [facility] Work Phone: - [phone] Bilirubin [Mass/Vol] Canceled MG-S [facility] Work Phone: - [phone] Calcium [Mass/Vol] Canceled [facility] Work Phone: [phone] Chloride [Moles/Vol] Canceled [facility] Work [facility]: [phone] CO2 [Moles/Vol] Canceled [facility] Work [facility]: 151 Creatinine [Mass/Vol] Canceled [facility] Work Phone: [phone] Glucose [Mass/Vol] Canceled -[facility] Work Phone: 151 Potassium [Moles/Vol] Canceled [facility] Work [facility]: 151 Protein [Mass/Vol] Canceled -[facility] Work Phone: 151 Sodium [Moles/Vol] Canceled -[facility] Work Phone: 151 Urea nitrogen [Mass/Vol] Canceled -[facility] Work Phone: [phone] CT Abdomen and Pelvis with I V Contraston 12-25-2020 CT Abdomen and Pelvis W contrast IV Normal [facility] Work Phone: 151 Complete Blood Count + Diffe rentialon 12-25-2020 Basophils/100 WBC (Bld) 0.2 % 0.0 - 2.0 [facility] Work Phone: 151 Erythrocyte distribution width (RBC) [Ratio] 15.7 % above high threshold See Below [facility] Work Phone: 151 Comment on above: Reference Range: 11. 5 - 14.5 Hematocrit (Bld) [Volume fraction] 40.2 % below low threshold See Below [facility] Work Phone: [phone] Comment on above: Reference Range: 41. 0 - 52.0 Hemoglobin (Bld) [Mass/Vol] 13.0 g/dL below low threshold See Below [facility] Work Phone: - [phone] Comment on above: Reference Range: 13. 5 - 17.5 Lymphocytes/100 WBC (Bld) 14.4 % See Below [facility] Work Phone: [phone] Comment on above: Reference Range: 13. 0 - 44.0 MCHC (RBC) [Mass/Vol] 32.3 g/dL See Below [facility] Work Phone: - [phone] Comment on above: Reference Range: 32. 0 - 36.0 MCV (RBC) [Entitic vol] 89 fL 80 - 100 M [facility] Work Phone: - [phone] Monocytes/100 WBC (Bld) 7.5 % 2.0 - 10.0 M [facility] Work Phone: 151 Neutrophils/100 WBC (Bld) 76.9 % See Below [facility] Work Phone: - [phone] Comment on above: Reference Range: 40. 0 - 80.0 Platelets (Bld) [#/Vol] 401 10*3/uL 150 - 450 [facility] Work Phone: [phone] RBC (Bld) [#/Vol] 4.50 {x10E12/L} See Below [facility] Work Phone: - [phone] Comment on above: Reference Range: 4.5 0 - 5.90 WBC (Bld) [#/Vol] 11.4 10*3/uL above high threshold 4.4 - 11.3 [facility] Work Phone: - [phone] Complete Blood Count + Differential 0.02 {x10E9/L} See Below [facility] Work Phone: - [phone] Comment on above: Reference Range: 0.0 0 - 0.10 Complete Blood Count + Differential 0.08 {x10E9/L} See Below [facility] Work Phone: - [phone] Comment on above: Reference Range: 0.0 0 - 0.40 Complete Blood Count + Differential 0.86 {x10E9/L} above high threshold See Below [facility] Work Phone: [phone] Comment on above: Reference Range: 0.0 5 - 0.80 Complete Blood Count + Differential 1.65 {x10E9/L} See Below [facility] Work Phone: [phone] Comment on above: Reference Range: 0.8 0 - 3.00 Complete Blood Count + Differential 8.78 {x10E9/L} above high threshold See Below [facility] Work Phone: [phone] Comment on above: Reference Range: 1.6 0 - 5.50 Complete Blood Count + Differential 0.7 % 0.0 - 6.0 [facility] Work Phone: [phone] Complete Blood Count + Differential 0.3 % 0.0 - 0.9 [facility] Work Phone: [phone] Comment on above: Immature Granulocyte Count (IG) includes promyelocytes, myelocytes and metamyelocytes but does not include bands. Percent differential counts (%) should be interpreted in the context of the absolute cell counts (cells/L). Gastrin, Serumon 12-25-2020 Gastrin [Mass/Vol] Canceled -[facility] Work Phone: [phone] Laboratory - Chemistry and C hemistry - challengeon 12-25-2020 Albumin BCP dye [Mass/Vol] 4.3 g/dL 3.4 - 5.0 [facility] Work Phone: [phone] ALP [Catalytic activity/Vol] 88 U/L 33 - 136 [facility] Work Phone: [phone] ALT With P-5'-P [Catalytic activity/Vol] 11 U/L 10 - 52 -Surg [facility] Work Phone: [phone] Comment on above: Patients treated wit h Sulfasalazine may generate falsely decreased results for ALT. Anion gap [Moles/Vol] 15 mmol/L 10 - 20 [facility] Work Phone: [phone] AST With P-5'-P [Catalytic activity/Vol] 12 U/L 9 - 39 [facility]: [phone] Bilirubin [Mass/Vol] 0.4 mg/dL 0.0 - 1.2 MG[facility]S [facility] Work Phone: [phone] Calcium [Mass/Vol] 9.8 mg/dL 8.6 - 10.3 [facility] Work Phone: [phone] Chloride [Moles/Vol] 104 mmol/L 98 - 107 MG[facility] Work Phone: [phone] CO2 [Moles/Vol] 23 mmol/L 21 - 32 MG-Surger [facility] Work Phone: [phone] Creatinine [Mass/Vol] 1.15 mg/dL See Below [facility] Work Phone: [phone] Comment on above: Reference Range: 0.5 0 - 1.30 Glucose [Mass/Vol] 101 mg/dL above high threshold 74 - 99 [facility] Work Phone: [phone] Potassium [Moles/Vol] 4.3 mmol/L 3.5 - 5.3 [facility] Work Phone: [phone] Protein [Mass/Vol] 7.5 g/dL 6.4 - 8.2 [facility] Work Phone: [phone] Sodium [Moles/Vol] 138 mmol/L 136 - 145 [facility] Work Phone: [phone] Urea nitrogen [Mass/Vol] 30 mg/dL above h igh threshold 6 - 23 [facility] Work Phone: [phone] No Panel Informationon 12-25 >60 >60 [facility] Work Phone: [phone] Comment on above: CALCULATIONS OF LACEY MATED GFR ARE PERFORMED USING THE MDRD STUDY EQUATION FOR THE IDMS-TRACEABLE CREATININE METHODS. 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 He will be undergoing serum gastrin level testing as well as cross-sectional imaging. I will obtain his EGD report from [facility]. It is currently unclear to [...] Duodenal well-differentiated neuroendocrine tumor History of Present Qatgukv93-sfhq-qnx man referred to me from Dr. Johansen for duodenal well-differentiated neuroendocrine tumor. He underwent EGD on 11/28/2020 at the [facility] in [facility] for a longstanding history of gastroesophageal reflux [...] PYL TISSUE, UREASE Negative Normal NEGATIVE [facility] Comment on above: Performed By: #### P OCGLUC #### [facility] [address] [place] [address] Freda Wayne POINT OF CARE GLUCOSEon 11-13 Glucose [Mass/Vol] 129 mg/dL Critically high 74-106 T he [facility] Comment on above: Performed By: #### P OCGLUC #### [facility] [address] [place], [place] [address] José Luis Beard Covid-19 PCR (CVDTBH)on 11-13 SARS-CoV-2 (COVID-19) RNA SHRUTI+probe Ql (Unsp spec) Not detected Normal NOT DETECTED [facility] Comment on above: Result Comment: This test is not yet approved or cleared by the [place] FDA. When there are no FDA-approved or cleared tests available, and other criteria are met, FDA can make tests available under an emergency access mechanism called an Emergency Use Authorization (EUA). The EUA for this test is supported by the [place] of Health and Human Service's (HHS's) declaration [...] SARS-CoV-2. Performed By: #### C BCMAN #### [facility] [address] [place] [id number] Freda Wayne [place] HEPATOBILIARY SCAN W [...] by: MARCELLO LEE Date: 2020-06-18 10:24 Normal [facility] Vital Signs Date Time Vital Sign Value Performing Clinician Padma loja 04-13-2024 08:50-0400 Body height 177.8 cm Jenniffer RIBEIRO Work Phone: [facility] 04-13-2024 08:50-0400 Body mass index (BMI) [Ratio] 33.43 kg/m2 Jenniffer Sears PA Work Phone: [facility] 04-13-2024 08:50-0400 Body weight 105.69 kg Jenniffer RIBEIRO Work Phone: [facility] 04-12-2024 08:29-0400 Body height 177.8 cm Miriam Atkinstrick MEETING FACILITATOR Work Phone: [facility] 04-12-2024 08:29-0400 Body mass index (BMI) [Ratio] 33.89 kg/m2 Miriam Laurazpatrick MEETING FACILITATOR Work Phone: [facility] 04-12-2024 08:29-0400 Body temperature 96.3 [degF] Miriam Laurazpatrick MEETING FACILITATOR Work Phone: [facility] 04-12-2024 08:29-0400 Body weight 107.14 kg Miriam Gatica MEETING FACILITATOR Work Phone: [facility] 04-12-2024 08:29-0400 Diastolic blood pressure 78 mm[Hg] Miriam Laurazpatrick MEETING FACILITATOR Work Phone: [facility] 04-12-2024 08:29-0400 Heart rate 53 /min Miriam Gatica MEETING FACILITATOR Work Phone: [facility] 04-12-2024 08:29-0400 Respiratory rate 16 /min Miriam Gatica MEETING FACILITATOR Work Phone: [facility] 04-12-2024 08:29-0400 SaO2% (BldA) [Mass fraction] 95 % Miriam Gatica MEETING FACILITATOR Work Phone: [facility] 04-12-2024 08:29-0400 Systolic blood pressure 130 mm[Hg] Miriam Gatica MEETING FACILITATOR Work Phone: [facility] 10-07-2023 10:30-0400 Diastolic blood pressure 77 mm[Hg] Jeremiah Magaña MD Work Phone: [facility] 10-07-2023 10:30-0400 Heart rate 71 /min Jeremiah Magaña MD Work Phone: [facility] 10-07-2023 10:30-0400 Respiratory rate 16 /min Jeremiah Magaña MD Work Phone: [facility] 10-07-2023 10:30-0400 Systolic blood pressure 130 mm[Hg] Jeremiah Magaña MD Work Phone: [facility] 10-07-2023 09:45-0400 Body temperature 97.2 [degF] Jeremiah Magaña MD Work Phone: [facility] 10-07-2023 09:45-0400 SaO2% (BldA) [Mass fraction] 95 % Jeremiah Magaña MD Work Phone: [facility] 10-07-2023 06:39-0400 Body height 177.8 cm Jeremiah Magaña MD Work Phone: [facility] 10-07-2023 06:39-0400 Body mass index (BMI) [Ratio] 33 kg/m2 Jeremiah Magaña MD Work Phone: [facility] 10-07-2023 06:39-0400 Body weight 104.33 kg Jeremiah Magaña MD Work Phone: [facility] 06-10-2023 09:30-0500 Diastolic blood pressure 63 mm[Hg] Sam Padilla MD Work Phone: [facility] 06-10-2023 09:30-0500 Heart rate 62 /min Sam Padilla MD Work Phone: [facility] 06-10-2023 09:30-0500 Respiratory rate 18 /min Sam Padilla MD Work Phone: [facility] 06-10-2023 09:30-0500 SaO2% (BldA) [Mass fraction] 96 % Sam Padilla MD Work Phone: [facility] 06-10-2023 09:30-0500 Systolic blood pressure 138 mm[Hg] Sam Padilla MD Work Phone: [facility] 06-10-2023 09:10-0500 Body temperature 97.9 [degF] Sam Padilla MD Work Phone: [facility] 06-10-2023 07:28-0500 Body height 177.8 cm Sam Padilla MD Work Phone: [facility] 06-10-2023 07:28-0500 Body mass index (BMI) [Ratio] 34.29 kg/m2 Sam Padilla MD Work Phone: [facility] 06-10-2023 07:28-0500 Body weight 108.41 kg Sam Padilla MD Work Phone: [facility] 01-08-2021 14:15-0400 Body height 177.8 cm Vanessa Steele Work Phone: [facility] Work Phone: 01-08-2021 14:15-0400 Body mass index (BMI) [Ratio] 34.87 kg/m2 Vanessa Steele Work Phone: [facility] Work Phone: 01-08-2021 14:15-0400 Body surface area Derived from formula 2.27 m2 Vanessa Steele Work Phone: [facility] Work Phone: 01-08-2021 14:15-0400 Body temperature 97.5 [degF] Vanessa Steele Work Phone: [facility] Work Phone: 01-08-2021 14:15-0400 Body weight 110.22 kg Vanessa Steele Work Phone: [facility] Work Phone: 01-08-2021 14:15-0400 Diastolic blood pressure 81 mm[Hg] Vanessa Steele Work Phone: [facility] Work Phone: 01-08-2021 14:15-0400 Heart rate 76 /min Vanessa Steele Work Phone: [facility] Work Phone: 01-08-2021 14:15-0400 Systolic blood pressure 134 mm[Hg] Vaenssa Steele Work Phone: [facility] Work Phone: Encounters Encounter Date Encounter Type Care Provider Facility Start: 04-13-2024 End: 04-13-2024 Xochitlo flowsheet Jenniffer RIBEIRO Work Phone: [facility] Start: 04-13-2024 End: 04-13-2024 Bamboo flowsheet Jenniffer RIBEIRO Work Phone: [facility] Start: 04-13-2024 End: 04-13-2024 Office outpatient new 45 minutes Jenniffer Sears PA Work Phone: [facility] Comment on above: Acute pain of left s houlder (Primary Dx); Left rotator cuff tear arthropathy Start: 04-13-2024 End: 04-13-2024 ambulatory JENNIFFER SEARS Not Available Start: 04-12-2024 End: 04-12-2024 Bamboo flowsheet Miriam Gatica MEETING FACILITATOR Work Phone: [facility] Start: 04-12-2024 End: 04-12-2024 Bamboo flowsheet Miriam Gatica MEETING FACILITATOR Work Phone: [facility] Start: 04-12-2024 End: 04-12-2024 Office outpatient visit 15 minutes Miriam Gatica MEETING FACILITATOR Work Phone: [facility] Comment on above: Mixed hyperlipidemia (CMS/HCC) (Primary Dx); Primary hypertension (CMS/HCC); Type 2 diabetes mellitus with stage 3a chronic kidney disease, without long-term current use of insulin (HCC) (CMS/HCC); Gastroesophageal reflux disease without esophagitis; Stage 3a chronic kidney disease (HCC) (CMS/HCC); Obesity (BMI 30-39.9); Diabetes mellitus type 2 in obese (CMS/HCC); Left rotator cuff tear arthropathy; Chronic pain of right knee; Arthritis Start: 04-12-2024 End: 04-12-2024 ambulatory MIRIAM GATICA Not Available Start: 01-11-2024 End: 01-11-2024 ambulatory SHAIKH JAMIE Not Available Start: 12-31-2023 End: 12-31-2023 ambulatory NEFTALI Keith [facility] Start: 12-29-2023 End: 12-29-2023 [facility] Start: 12-28-2023 End: 12-28-2023 ambulatory SHAIKH JAMIE [facility] Start: 12-02-2023 ambulatory Maribeth Tanner Facility:[facility] Start: 12-01-2023 End: 12-03-2023 Subsequent hospital visit by physician [facility] Mri Room [facility] MRI Comment on above: Bilateral renal cyst s; Adrenal adenoma, left Start: 12-01-[address] [facility] Start: 11-30-[address] [facility] Start: 11-30-2023 End: 11-30-2023 Subsequent hospital visit by physician Shaikh Jamie HERNANDEZ Work Phone: [facility] Laboratory Comment on above: Bilateral renal cyst s; Adrenal adenoma, left Start: 11-16-2023 End: 11-16-2023 ambulatory SHAIKH JAMIE Not Available Start: 10-27-2023 End: 10-27-2023 ambulatory [facility] Start: 10-16-2023 End: 10-16-2023 [facility] Start: 10-12-2023 End: 10-12-2023 ambulatory SHAIKH JAMIE Not Available Start: 10-07-2023 End: 10-07-2023 Subsequent hospital visit by physician Jeremiah Magaña MD Work Phone: [facility] Comment on above: 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) Start: 10-07-2023 End: 10-07-2023 ambulatory [facility] Start: 09-15-2023 End: 09-15-2023 ambulatory [facility] Start: 08-18-2023 End: 08-18-2023 ambulatory [facility] Start: 08-11-2023 End: 08-11-2023 ambulatory SHAIKH JAMIE Not Available Start: 07-31-[address] [facility] Start: 07-30-2023 Orders Only Shaikh Jamie HERNANDEZ Work Phone: [facility] Comment on above: Stage 3a chronic kid spencer disease (HCC) (CMS/HCC) (Primary Dx); Type 2 diabetes mellitus with stage 3a chronic kidney disease, without long-term current use of insulin (HCC) (CMS/HCC) Start: 07-28-2023 Refill Gerald Hawkins Work Phone: [facility] Comment on above: Primary hypertension (CMS/HCC) (Primary Dx) Start: 07-28-2023 End: 07-30-2023 Patient encounter procedure Grace Justice PA-C Work Phone: [facility] Work Phone: Start: 07-28-2023 End: 07-30-2023 Subsequent hospital visit by physician Grace Justice PA-C Work Phone: [facility] Comment on above: Exam for clinical tr ial Start: 07-27-2023 ambulatory ERNI [facility] Start: 07-15-2023 End: 07-15-2023 ambulatory SHAIKH JAMIE Not Available Start: 07-02-2023 ambulatory Maribeth Lue Facility[facility] Start: 06-30-2023 ambulatory Maribeth Lue Facility:[facility] Start: 06-29-2023 End: 06-29-2023 ambulatory RENEA Leena YING Not Available Start: 06-18-2023 End: 06-18-2023 ambulatory NEFTALI Keith [facility] Start: 06-10-2023 End: 06-10-2023 Subsequent hospital visit by physician Sam Padilla MD Work Phone: [facility] Comment on above: Primary malignant ne uroendocrine neoplasm of duodenum (CMS/HCC) (Primary Dx) Start: 06-10-2023 End: 06-10-2023 ambulatory SAM PADILLA [facility] Start: 05-26-2023 End: 05-26-2023 Subsequent hospital visit by physician [facility] [facility] Comment on above: Primary malignant ne uroendocrine neoplasm of duodenum (CMS/HCC) Start: 05-26-2023 End: 05-26-2023 ambulatory JAZLYN MACRTHUR [facility] Start: 05-22-2023 End: 05-22-2023 ambulatory [facility] Start: 05-19-2023 End: 05-19-2023 ambulatory NEFTALI STARR Not Available Start: 05-12-[address] Neftali Knowles Facility:[facility] Start: 05-09-2022 Chart Update Vanessa Penny ler Work Phone: [facility] Work Phone: Start: 04-29-2022 End: 04-29-2022 ambulatory Jeremiah Magaña Facility:[id number] Start: 03-01-2022 AUDIT Vanessa Penny ler Work Phone: [facility] [facility] Work Phone: Start: 12-05-2021 ambulatory Ms. Lulu Calle Facilit y:[id number] Start: 12-03-2021 AUDIT Vanessa Penny ler Work Phone: [facility] Work Phone: Start: 10-31-2021 ambulatory Ms. Lulu Calle Facilit y:[phone] Start: 08-26-[address] Neftali Knowles Facility:[facility] Start: 06-04-2021 End: 06-06-2021 Evaluation and management of inpatient DR VANESSA STEELE Facility:[facility]1 Start: 05-20-[address] Neftali Knowles Facility:[facility] Start: 05-16-2021 Result Review Vanessa Penny ler Work Phone: GR-Pcxrurtrwhcuqani-Vo stlake [facility]JW 450 DO Work Phone: Start: 05-01-2021 Chart Update Vanessa Penny ler Work Phone: LT-Cxhlqcdvafbommfl-Rp stlake SJW 450 DO Work Phone: Start: 04-26-2021 AUDIT Vanessa Penny ler Work Phone: [facility] Work Phone: Start: 02-05-2021 Telephone encounter Vanessa Steele Work Phone: LU-Qrogqyffoeaazfkd-On stlake SJW 450 DO Work Phone: Start: 01-23-2021 AUDIT Vanessa F Dil ler Work Phone: EL-Rhkhjgdpytwajoki-Du stlake SJW 450 DO Work Phone: Start: 01-18-2021 AUDIT Vanessa Dey Dil ler Work Phone: [facility] Work Phone: Start: 01-10-2021 Office outpatient vi sit 15 minutes Vanessa Steele Work Phone: [facility] Work Phone: Start: 12-19-2020 Office outpatient ne w 60 minutes Vanessa Steele Work Phone: [facility] Work Phone: Start: 11-29-2020 Encounter for preprocedural laboratory examination DR XAVI THOMPSON [facility] Start: 11-28-2020 End: 11-28-2020 ambulatory MIQUEL HAWKINS Facility:H1 Start: 11-26-2020 End: 11-27-[address] XAVI THOMPSON Facility:[facility]1 Start: 11-26-2020 End: 11-27-2020 Encounter for preprocedural laboratory examination DR XAVI THOMPSON Facility:[facility]1 Start: 06-18-2020 End: 06-19-[address] VANESSA STEELE Facility:[facility]1 Start: 10-08-2018 End: 10-09-2018 Patient encounter procedure DEFAULT PHYSICIAN Facility:[facility] Procedures Date Procedure Procedure Detail Performing Clinician Start: 04-13-2024 Arthrocentesis aspir&/inj major jt/bursa w/o us Jenniffer RIBEIRO Work Phone: Start: 04-13-2024 Radex shoulder complete minimum 2 views Jenniffer RIBEIRO Work Phone: Start: 11-30-2023 Assay of urea nitrogen quantitative Grace Justice PA-C Work Phone: Start: 10-07-2023 DISCHARGE PATIENT JAZLYN MCARTHUR Start: 10-07-2023 ENDOSCOPIC ULTRASOUND (UPPER) JAZLYN MELENDEZAbel PAGAN Start: 10-07-2023 SURGICAL PATHOLOGY EXAM JAZLYN MCARTHUR Start: 10-07-2023 PLACE IN OUTPATIENT/HOSPITAL AMBULATORY SURGERY JAZLYN MCARTHUR Start: 10-07-2023 Glucose [Mass/volume] in Serum or Plasma JAZLYN MCARTHUR Start: 10-07-2023 Edg us exam surgical alter stom duodenum/jejunum Sam Padilla MD Work Phone: Start: 10-07-2023 Glucose quantitative blood xcpt reagent strip Jeremiah Magaña MD Work Phone: Start: 07-28-2023 Unlisted us procedure Grace Justice PA-C Work Phone: Start: 06-18-2023 ONCBCN CLINIC APPOINTMENT REQUEST ALEXANDER JAMIE Start: 06-10-2023 PULSE OXIMETRY, CONTINUOUS JAZLYN MCARTHUR Start: 06-10-2023 Esophagogastroduodenoscopy JAZLYN MCARTHUR Start: 06-10-2023 SURGICAL PATHOLOGY EXAM JAZLYN MCARTHUR Start: 06-10-2023 PULSE OXIMETRY, SPOT JAZLYN MCARTHUR Start: 06-10-2023 PLACE IN OUTPATIENT/HOSPITAL AMBULATORY SURGERY JAZLYN MCARTHUR Start: 06-10-2023 PULSE OXIMETRY, CONTINUOUS Sam caruso MD Work Phone: Start: 06-10-2023 Egd transoral biopsy single/multiple Jazlyn Mcarthur [employer] Work Phone: Start: 06-10-2023 Glucose [Mass/volume] in Serum or Plasma JAZLYN MCARTHUR Start: 06-10-2023 PULSE OXIMETRY, SPOT Sam Padilla MD Work Phone: Start: 06-10-2023 Glucose quantitative blood xcpt reagent strip Sam Padilla MD Work Phone: Start: 05-26-2023 CT CHEST ABDOMEN PELVIS W IV CONTRAST JAZLYN MCARTHUR Start: 05-26-2023 Ct thorax w/contrast material Jazlyn Abdirahman martinez [employer] Work Phone: Start: 05-22-2023 CBC W Auto [...] Screening for malign ant neoplasm of colon [facility] Start: 10-27-2028 DTaP/Tdap/Td vaccine (3 - Td or Tdap) DTaP/Tdap/Td vaccine (3 - Td or Tdap) [facility] Start: 10-27-2028 DTaP/Tdap/Td Vaccine s (4 - Td or Tdap) DTaP/Tdap/Td Vaccines (4 - Td or Tdap) [facility] Start: 03-06-2028 Lipid panel Lipid Panel [facility] Start: 08-17-2025 Glaucoma screening Diabetes: R etinopathy Screening [facility] Start: 11-29-2024 GFR test (Diabetes, CKD 3-4, OR last GFR 15-59) GFR test (Diabetes, CKD 3-4, OR last GFR 15-59) [facility] Start: 10-06-2024 Diabetes mellitus screening Diabetes Screening [facility] Start: 08-12-2024 End: 08-12-2024 Patient encounter procedure 08/12/2024 9:00 AM EST Office Visit [facility] [address] [place] [phone] Jenniffer Sears PA [address] [place] [address] [address] [facility] Start: 07-13-2024 End: 07-13-2024 Patient encounter procedure 07/13/2024 8:30 AM EST Office Visit [facility] [address] [place] [phone] Miriam Gatica, ANJEL [address] [place] [phone] [facility] Start: 06-21-2024 End: 06-21-2024 Patient encounter procedure 06/21/2024 9:40 AM EST Office Visit [address] 2nd [place] [phone] [place] [address] [address] [phone] [facility] Start: 06-10-2024 Diabetes mellitus screening Diabetes Screening [facility] Start: 04-14-2024 Hemoglobin A1c measurement Diabetes: Hemoglobin A1C [facility] Start: 04-13-2024 End: 04-13-2024 Patient encounter procedure 04/13/2024 9:00 AM EDT Office Visit [facility] [address] [place] [phone] Jenniffer Sears PA [address] [place] [address] [address] Acute pain of left shoulder (Primary Dx); Left rotator cuff tear arthropathy; Chronic pain of right knee; Arthritis [facility] Comment on above: Acute pain of left s houlder (Primary Dx); Left rotator cuff tear arthropathy; Chronic pain of right knee; Arthritis Start: 04-12-2024 End: 04-12-2025 CBC W Auto Differential panel - Blood CBC and differential Lab Routine Primary hypertension ([facility]/HCC) Type 2 diabetes mellitus with stage 3a chronic kidney disease, without long-term current use of insulin (HCC) ([facility]/HCC) Stage 3a chronic kidney disease (HCC) ([facility]) Expected: 04/12/2024 (Approximate), Expires: 04/12/2025 [facility] Comment on above: Expected: 04/12/2024 (Approximate), Expires: 04/12/2025 Start: 04-12-2024 End: 04-12-2025 Comprehensive metabolic 2000 panel - Serum or Plasma Comprehensive metabolic panel Lab Routine Primary hypertension ([facility]) Type 2 diabetes mellitus with stage 3a chronic kidney disease, without long-term current use of insulin (HCC) ([facility]/HCC) Stage 3a chronic kidney disease (HCC) ([facility]/HCC) Expected: 04/12/2024 (Approximate), Expires: 04/12/2025 [facility] Comment on above: Expected: 04/12/2024 (Approximate), Expires: 04/12/2025 Start: 04-12-2024 End: 04-12-2025 Hemoglobin A1c/Hemoglobin.total in Blood Hemoglobin A1c Lab Routine Type 2 diabetes mellitus with stage 3a chronic kidney disease, without long-term current use of insulin (HCC) ([facility]/HCC) Expected: 04/12/2024 (Approximate), Expires: 04/12/2025 [facility] Comment on above: Expected: 04/12/2024 (Approximate), Expires: 04/12/2025 Start: 04-12-2024 End: 04-12-2025 Lipid 1996 panel - Serum or Plasma Lipid panel Lab Routine Mixed hyperlipidemia ([facility]/HCC) Expected: 04/12/2024 (Approximate), Expires: 04/12/2025 [facility] Comment on above: Expected: 04/12/2024 (Approximate), Expires: 04/12/2025 Start: 04-12-2024 End: 04-12-2024 Patient encounter procedure 04/12/2024 8:30 AM EDT Office Visit [facility] [address] [place] [phone] Miriam Gatica, ANJEL [address] [place] [address] Arrived [facility] Comment on above: Arrived Start: 03-06-2024 Urine screening for protein Diabetes: Urine Protein Screening [facility] Start: 02-25-2024 Medicare Annual Wellness (AWV) Medicare Annual Wellness (AWV) [facility] Start: 02-14-2024 Influenza vaccination Influenza Vacc ine (#1) [facility] Start: 12-31-2023 End: 12-31-2023 Patient encounter procedure 12/31/2023 7:30 AM EDT Appointment [facility] [address] [place] [address] [facility] Start: 12-07-2023 End: 12-07-2023 Patient encounter procedure 12/07/2023 10:30 AM EDT Office Visit [facility] on [address] [address] Grace Justice PA-C [address] [place] [address] Dr [address] [place] [phone] 3 month f/u with MRI and PVR [facility] on [facility] Comment on above: 3 month f/u with MRI and PVR Start: 12-01-2023 Subsequent hospital visit by physician 12/01/2023 9:30 AM EDT Hospital Encounter [facility] [address] [place] [id number] [facility] Start: 09-28-2023 Hemoglobin A1c measurement Diabetes: Hemoglobin A1C [facility] Start: 08-27-2023 COVID-19 Vaccine ( season) COVID-19 Vaccine ( season) [facility] Start: 08-11-2023 End: 08-11-2023 Patient encounter procedure 08/11/2023 9:15 AM EST Office Visit [facility] [address] [place] [address] Shaikh Ayala MD [address] [facility] [place] [address] GAYE VELASQUEZ Start: 07-31-2023 Annual Wellness Visi t (Medicare) Annual Wellness Visit (Medicare) [facility] Start: 07-31-2023 End: 07-31-2023 Patient encounter procedure 07/31/2023 9:30 AM EST Office Visit [facility] on [address] [address] Grace Justice, PA-C [address] [place] [address] N28.1 - Renal cyst, left [facility] on [facility] Comment on above: N28.1 - Renal cyst, left Start: 06-23-2023 COVID-19 Vaccine (4 - Pfizer series) COVID-19 Vaccine (4 - Pfizer series) [facility] Start: 06-18-2023 End: 06-18-2023 Patient encounter procedure 06/18/2023 12:40 PM EST Office Visit [facility] [address] 2[address] [place] [phone] [place] [address] [place] [address] [facility] Start: 06-10-2023 End: 06-10-2023 Patient encounter procedure 06/10/2023 8:30 AM EST Appointment [facility] [address] [place] [phone] [place]1 [place] [address] [facility] [address], [facility] [address] [place] [address] [facility] Start: 04-29-2023 Diabetes mellitus screening Diabetes Screening [facility] Start: 04-29-2022 EGDANS, Provider: Jeremiah Magaña, Status: Pen, Time: 7:30 AM EGDANS, Provider: Jeremiah Magaña, Status: Pen, Time: 7:30 AM AH-Rqergldu-Xvkvttic 1500 Work Phone: Start: 11-13-2021 NPV, Provider: Deb Zavala, Status: Pen, Time: 11:20 AM NPV, Provider: Deb Zavala, Status: Pen, Time: 11:20 AM KC-Wnwpybxz-Ckuyemku 1500 Work Phone: Start: 05-01-2021 EGDANS, Provider: Irwin Cespedes, Status: Pen, Time: 8:30 AM EGDANS, Provider: Irwin Cespedes, Status: Pen, Time: 8:30 AM YQ-Oskpoylgtiymuclg-S estlake SJW 450 DO Work Phone: Start: 01-23-2021 EUSANS, Provider: Irwin Cespedes, Status: Pen, Time: 10:30 AM EUSANS, Provider: Irwin Cespedes, Status: Pen, Time: 10:30 AM [facility] Work Phone: Start: 07-08-2020 Glaucoma screening Diabetes: R etinopathy Screening [facility] Start: 07-19-2016 Shingles vaccine (2 of 3) Shingles vaccine (2 of 3) [facility] Start: 07-19-2016 Zoster Vaccines (2 o f 3) Zoster Vaccines (2 of 3) [facility] Start: 2014 Abdominal aortic aneurysm screening Abdominal Aortic Aneurysm (AAA) Screening [facility] Start: 2009 Hepatitis B Vaccines (1 of 3 - Risk 3-dose series) Hepatitis B Vaccines (1 of 3 - Risk 3-dose series) [facility] Start: 2009 Respiratory Syncytia l Virus (RSV) or age 60 yrs+ (1 - 1-dose 60+ series) Respiratory Syncytial Virus (RSV) or age 60 yrs+ (1 - 1-dose 60+ series) [facility] Start: 2009 RSV patient s and/or patients aged 60+ years (1 - 1-dose 60+ series) RSV patients and/or patients aged 60+ years (1 - 1-dose 60+ series) [facility] Start: 1994 Screening for malign ant neoplasm of colon [facility] Start: 1989 Lipid panel Lipids [facility] Start: 1968 Hepatitis A Vaccines (1 of 2 - Risk 2-dose series) Hepatitis A Vaccines (1 of 2 - Risk 2-dose series) [facility] Start: 1967 Hepatitis C screening U [facility] Start: 1961 Depression Screen Depression Screen [facility] Start: 1959 Lipid panel Lipids [facility] Start: 1949 Medicare Annual Wellness Visit Medicare Annual Wellness Visit (AWV) [facility] Start: 1949 Screening for malign ant neoplasm of colon [facility] End: 05-26-2023 CT Chest and Abdomen and Pelvis W contrast IV [facility] Service Area Work Phone: Comment on above: Once for 1 Occurrenc es starting 05/26/2023 until 05/26/2023 Microalbumin/Creatin ine panel in random Urine Microalbumin / creatinine urine ratio Lab Routine Primary hypertension (CMS/HCC) Type 2 diabetes mellitus with stage 3a chronic kidney disease, without long-term current use of insulin (HCC) (CMS/HCC) Stage 3a chronic kidney disease (HCC) (CMS/HCC) Ordered: 04/12/2024 [facility] Work Phone: Comment on above: Ordered: 04/12/2024 End: 10-07-2023 Moderate Sedation Moderate Sedation Procedures Routine Once for 1 Occurrences starting 10/07/2023 until 10/07/2023 [facility] Work Phone: Comment on above: Once for 1 Occurrenc es starting 10/07/2023 until 10/07/2023 End: 12-01-2023 MR Abdomen WO and W contrast IV [facility] Work Phone: Comment on above: 1 Occurrences starti ng 12/01/2023 until 12/01/2023 End: 10-07-2023 Pulse oximetry, continuous Pulse oximetry, continuous Respiratory Care Routine Continuous until discontinued starting 10/07/2023 [facility] Work Phone: Comment on above: Continuous until dis continued starting 10/07/2023 End: 10-07-2023 Pulse oximetry, spot Pulse oximetry, spot Respiratory Care Routine Once for 1 Occurrences starting 10/07/2023 until 10/07/2023 [facility] Service Area Work Phone: Comment on above: Once for 1 Occurrenc es starting 10/07/2023 until 10/07/2023 Surgical pathology study [facility] Work Phone: Comment on above: Release Upon Orderin g for 1 Occurrences starting 06/10/2023 Release Upon Orderin g for 1 Occurrences starting 06/10/2023, 1 completed Surgical pathology study [facility] Work Phone: Comment on above: Release Upon Orderin g for 1 Occurrences starting 10/07/2023, 1 completed Immunizations Immunization Date Immunization Notes Care Provider [facility] 04-05-2024 influenza virus vaccine, unspecified formulation Miriam Gatica NP Work Phone: [facility] 03-20-2023 Influenza, High-dose Seasonal, Quadrivalent, Preservative Free Gerald Low MD Work Phone: [facility] 02-24-2023 pneumococcal polysaccharide vaccine, 23 valent Gerald Low MD Work Phone: [facility] 03-27-2022 Influenza, High-dose Seasonal, Quadrivalent, Preservative Free Gerald Low MD Work Phone: [facility] 10-15-2021 Comirnaty 30 MCG/0.3 ML Intramuscular Suspension Vanessa Steele Work Phone: QE-Ewxioomn-Xlzhum de 1500 Work Phone: 03-25-2021 Pfizer-BioNTech COVID-19 Vacc 30 MCG/0.3ML Intramuscular Suspension Vanessa Steele Work Phone: SS-Gvnmpzvr-Jsyvkc de 1500 Work Phone: 03-01-2021 Fluzone High-Dose Quadrivalent 0.7 ML Intramuscular Suspension Prefilled Syringe Vanessa Steele Work Phone: GX-Qudmjrfy-Fqypdc de 1500 Work Phone: 08-07-2020 Pfizer-BioNTech COVID-19 Vacc 30 MCG/0.3ML Intramuscular Suspension Vanessa Steele Work Phone: [facility] Work Phone: 07-17-2020 Pfizer-BioNTech COVID-19 Vacc 30 MCG/0.3ML Intramuscular Suspension Vanessa Steele Work Phone: [facility] Work Phone: 02-24-2020 Fluzone High-Dose Quadrivalent 0.7 ML Intramuscular Suspension Prefilled Syringe Vanessa Steeel Work Phone: [facility] Work Phone: 03-09-2019 influenza, high dose seasonal, preservative-free Vanessa Steele Work Phone: [facility] Work Phone: 11-22-2018 pneumococcal conjuga te vaccine, 13 valent Vanessa Steele Work Phone: [facility] Work Phone: 10-27-2018 tetanus and diphther ia toxoids, adsorbed, preservative free, for adult use (2 Lf of tetanus toxoid and 2 Lf of diphtheria toxoid) Gerald Low MD Work Phone: [facility] 10-27-2018 tetanus toxoid, redu norris diphtheria toxoid, and acellular pertussis vaccine, adsorbed Vanessa Steele Work Phone: [facility] Work Phone: 05-21-2018 pneumococcal conjuga te vaccine, 13 valent Vanessa Dey Cedric Work Phone: [facility] Work Phone: 04-09-2018 influenza, high dose seasonal, preservative-free Vanessa Steele Work Phone: [facility] Work Phone: 05-18-2017 influenza, high dose seasonal, preservative-free Vanessa Steele Work Phone: [facility] Work Phone: 05-24-2016 zoster vaccine, live Ponce Steele Work Phone: [facility] Work Phone: 05-15-2016 zoster vaccine, live Ponce Steele Work Phone: [facility] Work Phone: 03-13-2016 influenza, seasonal, injectable, preservative free Vanessa Steele Work Phone: [facility] Work Phone: 03-28-2015 influenza, seasonal, injectable, preservative free Vanessa Steele Work Phone: [facility] Work Phone: 03-14-2011 tetanus toxoid, redu norris diphtheria toxoid, and acellular pertussis vaccine, adsorbed Vanessa Steele Work Phone: [facility] Work Phone: 08-06-2009 novel nohgeqein-[id number], preservative-free, injectable Vanessa Steele Work Phone: [facility] Work Phone: 05-12-2006 pneumococcal polysaccharide vaccine, 23 valent Vanessa Steele Work Phone: [facility] Work Phone: Payers Date Payer Category Payer Medicare [id number] 2016 Private Health Insurance [id number] 2016 Unknown 1959 Medicare [id number] 1959 Private Health Insurance [id number] 1949 Unknown [id number] 2.16.8 40.1.079997.3.579.2.647 1949 Unknown [id number] 2.16.84 0.1.851305.3.579.2.593 1949 Unknown [id number] 2.16.84 0.1.725985.3.579.2.593 1949 Unknown [id number] 2.16.84 0.1.913649.3.579.2.593 1949 Unknown [id number] 2.16.84 0.1.961701.3.579.2.593 1949 Unknown [id number] 2.16. 840.1.316265.3.579.2.356 1949 Unknown [id number] 2.16. 840.1.463259.3.579.2.356 1949 Unknown [id number] 2.16. 840.1.580079.3.579.2.356 1949 Unknown [id number] 2.16. 840.1.421371.3.579.2.356 1949 Unknown [id number] 2.16. 840.1.747686.3.579.2.356 1949 Unknown [id number] 2.16.8 40.1.605134.3.579.2.1069 1949 Unknown [id number] 2.16.8 40.1.410432.3.579.2.1069 1949 Unknown [id number] 2.16.8 40.1.340606.3.579.2.754 1949 Unknown [id number] 2.16.8 40.1.950807.3.579.2.754 1949 Unknown [id number] 2.16.8 40.1.723553.3.579.2.754 1949 Unknown [id number] 2.16.8 40.1.032061.3.579.2.1245 1949 Unknown [id number] 2.16.8 40.1.967980.3.579.2.1245 1949 Unknown [id number] 2.16.8 40.1.630101.3.579.2.1245 1949 Unknown [id number] 2.16.8 40.1.986127.3.579.2.1243 1949 Unknown [id number] 2.16.8 40.1.868747.3.579.2.1243 1949 Unknown [id number] 2.16.8 40.1.155295.3.579.2.1243 1949 Unknown [id number] 2.16.84 0.1.025305.3.579.2.1243 1949 Unknown [id number] 2.16.8 40.1.331486.3.579.2.1243 1949 Unknown [id number] 2.16.84 0.1.676895.3.579.2.1259 1949 Unknown [id number] 2.16.84 0.1.844260.3.579.2.1259 1949 Unknown [id number] 2.16.84 0.1.428211.3.579.2.1259 1949 Unknown [id number] 2.16.84 0.1.240528.3.579.2.1259 1949 Unknown [id number] 2.16.84 0.1.392857.3.579.2.1259 1949 Unknown [id number] 2.16.84 0.1.089602.3.579.2.1259 1949 Unknown [id number] 2.16.84 0.1.891833.3.579.2.1259 1949 Unknown [id number] 2.16.84 0.1.220592.3.579.2.1259 1949 Unknown [id number] 2.16.84 0.1.995311.3.579.2.1259 1949 Unknown [id number] 2.16.840 .1.023146.3.579.2.1259 Social History Date Type Detail Facility Start: 02-18-2023 End: 06-10-2023 Non-smoker Non-smoker [facility] Tobacco smoking status OHIS Tobacco smoking consumption unknown [facility] Work Phone: Start: 1950 Sex Assigned At [facility] Work [facility]: Start: 02-18-2023 End: 06-10-2023 Gender identity Not on file [facility] Start: 05-12-2023 End: 10-07-2023 Exposure to SARS-CoV-2 (event) Not sure [facility] Start: 06-10-2023 End: 01-11-2024 Tobacco smoking status NHIS Ex-smoker [facility] Work Phone: Start: 06-15-1968 End: 06-15-1983 History of tobacco use Current smoker [facility] Work Phone: Start: 06-15-1968 End: 06-15-1983 History of tobacco use Cigarette Smoker [facility] Work Phone: Start: 06-10-2023 End: 01-11-2024 Tobacco use and exposure Smokeless tobacco non-user [facility] Work Phone: Start: 06-10-2023 End: 04-13-2024 Alcohol intake Current drinker of alcohol (finding) [facility] Work Phone: Start: 06-10-2023 Alcohol Comment Social [facility] Work Phone: Within the last year , have you been afraid of your partner or ex-partner? No [facility] How often do you attend presybeterian or rastafari services? Patient refused [facility] Are you [...] Gender identity Identifies as male gender (finding) [facility] Start: 10-07-2023 Sexual orientation Heterosexual (sancho crum) [facility] Start: 07-31-2023 Tobacco smoking status NHIS Never smoked tobacco [facility] Work Phone: Start: 09-07-2023 End: 12-01-2023 Alcohol intake Ex-drinker (finding) [facility] Work Phone: Start: 10-12-2023 Alcohol Comment OCCASSIONA; [facility] Start: 04-13-2024 Alcohol Comment OCCASSIONAL [facility] NEGATED: Highlighted rowStart: NINF History of tobacco use Passive smoker [facility] Medical Equipment Procedure Code Equipment Code Equipment Original Text Equipment Identifier Dates Generic Supply 0 8 Case [id number] Start: 01-23-2021 Comment on above: Description: Convert ed from [facility]. Please see archived information for full log information. USE DIRECTED ONCE TEST [id number] Start: 06-22-2023 USE DIRECTED ONCE TEST [id number] Start: 06-22-2023 Clinical Notes 11-28-2020 to 04-13-2024 Jenniffer Sears, GEMA - 04/13/2024 9:00 AM Dre Gatica, MEETING FACILITATOR - 04/12/2024 10:57 AM Dre Gatica, MEETING FACILITATOR - 04/12/2024 10:55 AM Dre Gatica, MEETING FACILITATOR - 04/12/2024 10:55 AM EDT Note Date & Type Note Facility 04-13-2024 History of Present illness Narrative Associated Order(s): L Inj/Asp: L subacromial bursa Post-Procedure Diagnose(s): Left rotator cuff tear arthropathy Images from the original note were not included. NAME: Yusef Car : 1950 HISTORY OF PRESENT ILLNESS: NEW PT Yusef Car is an 74 y.o. @ male. NEW PT (MIRIAM GATICA REFERRAL) WITH LT SHOULDER PAIN ~2YRS- NO KNOWN INJURY - NO RECENT TX XRAY LT SHOULDER TODAY EPIC 04/13/24 HX LT SHOULDER SCOPE (RCR) PER DR LICEA ~2003 PAIN LATERAL SHOULDER- INCREASE PAIN WITH DRIVING- DENIES PAIN AT REST- OCCASIONALLY WAKES HS- GOOD ROM- DOES HEP- SOME WEAKNESS- +TYLENOL/ALEVE PRN - PT IS LT HAND DOMINANT PAST MEDICAL HISTORY: Past Medical History: Diagnosis Date Actinic keratosis 2 left hand Allergic 1963 Allergic rhinitis 1963 Anemia Arthritis 1999 Campylobacter diarrhea Cancer (CMS/HCC) 2020 Decreased testosterone level Diabetes mellitus, type II (CMS/HCC) Diverticulosis Dyspnea on effort Epididymitis Family history of malignant neoplasm of breast older sister Fatty liver GERD (gastroesophageal reflux disease) Hearing loss history of depression and panic disorder History of gout history of gout/hyperuricemia History of peptic ulcer disease History of prostatitis Hypertension (CMS/HCC) Hyperuricemia Gout/hyperuricemia Left ventricular hypertrophy Lumpy breasts Mitral valve prolapse Mixed hyperlipidemia (CMS/HCC) Multinodular goiter (CMS/HCC) Nasal polyposis Noncompliance with therapeutic regimen Obesity Peptic ulceration 1964 Pneumonia Seborrheic keratosis ankle TIA (transient ischemic attack) Vertigo Visual impairment 1959 PAST SURGICAL HISTORY: Past Surgical History: Procedure Laterality Date APPENDECTOMY age 18 BUNIONECTOMY 2004 CHOLECYSTECTOMY 05/2021 COLONOSCOPY 10/14/2010 -x2 polyps-one tubular adenoma,one hyperplastic/Dr Alvarez COLONOSCOPY 05/14/2015 moderate sigmoid diverticulosis,Dr Alvarez CYSTOSCOPY dilitation - 1999? HEMANGIOMA EXCISION 2011 tongue ROTATOR CUFF REPAIR Left 2004 SEPTOPLASTY 2008 TUMOR REMOVAL 01/2021 Duodenum SOCIAL HISTORY: Social History Occupational History Not on file Tobacco Use Smoking status: Former Current packs/day: 0.00 Average packs/day: 1 pack/day for 15.0 years (15.0 ttl pk-yrs) Types: Cigarettes Start date: 1968 Quit date: 1983 Years since quittin.8 Passive exposure: Never Smokeless tobacco: Never Vaping Use Vaping status: Never Used Substance and Sexual Activity Alcohol use: Yes Comment: OCCASSIONAL Drug use: Never Sexual activity: Defer Partners: Female ALLERGIES: Allergies Allergen Reactions Azithromycin Ciprofloxacin Other Reaction(s): ?change in mental status Erythromycin GI intolerance and Other Lisinopril Cough HOME MEDICATIONS: Current Outpatient Medications Medication Instructions allopurinol (Zyloprim) 300 MG tablet bisoprolol (ZEBETA) 10 mg, Oral, Every morning empagliflozin (JARDIANCE) 25 mg, Oral, Daily fluticasone (Flonase) 50 MCG/ACT nasal spray 2 sprays, Daily FREESTYLE LITE test strip USE DIRECTED ONCE TEST furosemide (LASIX) 20 mg, Oral, Daily glimepiride (AMARYL) 4 mg, Oral, Daily before breakfast losartan (COZAAR) 100 mg, Oral, Daily omeprazole (PRILOSEC) 40 mg, Oral, Daily before breakfast, Do not crush or chew. rosuvastatin (CRESTOR) 20 mg, Oral, Daily tamsulosin (FLOMAX) 0.4 mg, Oral, Daily REVIEW OF SYSTEMS: Review of Systems Vitals: Body mass index is 33.43 kg/m . Tobacco Use: Medium Risk (04/13/2024) Patient History Smoking Tobacco Use: Former Smokeless Tobacco Use: Never Passive Exposure: Never Alcohol Use: Not At Risk (06/28/2023) AUDIT-C Frequency of Alcohol Consumption: Monthly or less Average Number of Drinks: 1 or 2 Frequency of Binge Drinking: Monthly PHYSICAL EXAM: Shoulder Musculoskeletal Exam Inspection Left Left shoulder inspection is normal. Ecchymosis: none Peripheral edema: none Atrophy: none Masses: none Prior incision: arthroscopic portals Incision: well-healed Palpation Left Left shoulder palpation is normal. Crepitus: no crepitus Increased warmth: none Tenderness: present Rotator cuff: mild Greater tuberosity: mild Trapezius: none Medial scapula: none Superior pole of scapula: none Inferior pole of scapula: none Bicipital groove: mild Proximal biceps: none Distal biceps: none Lateral arm: mild Elbow: none Range of Motion Left Left shoulder range of motion is normal. Active ROM: normal. Passive ROM: normal. Internal rotation: T12. Range of motion additional comments: + pain passing 90 degrees of abduction. Strength Left External rotation: 5/5. Internal rotation: 5/5. Abduction: 5/5. Abduction is affected by pain. Biceps: 5/5. Triceps: 5/5. Neurovascular Left Radial pulse: normal and 2+ Capillary refill: <3 sec Axillary nerve sensory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 Encounter to establish care with new doctor Left adrenal mass ([facility]/HCC)- Primary Unspecified disorder of adrenal glands Type 2 diabetes mellitus with stage 3a chronic kidney disease, without long-term current use of insulin (HCC) ([facility]/HCC) Primary hypertension ([facility]/HCC) Unspecified essential hypertension Pneumonia of left lower lobe due to infectious organism- Primary Primary hypertension ([facility]/HCC) Unspecified essential hypertension Gout, unspecified cause, unspecified chronicity, unspecified site Leukemoid reaction Type 2 diabetes mellitus with stage 3a chronic kidney disease, without long-term current use of insulin (HCC) ([facility]) Gastroesophageal reflux disease without esophagitis- Primary Esophageal reflux Type 2 diabetes mellitus with stage 3a chronic kidney disease, without long-term current use of insulin (HCC) ([facility]) Primary hypertension ([facility]/HCC) Unspecified essential hypertension Left adrenal mass ([facility]) Unspecified disorder of adrenal glands Mixed hyperlipidemia ([facility]/HCC)- Primary Mixed hyperlipidemia Primary hypertension ([facility]/HCC) Unspecified essential hypertension Type 2 diabetes mellitus with stage 3a chronic kidney disease, without long-term current use of insulin (HCC) ([facility]/HCC) Gastroesophageal reflux disease without esophagitis Esophageal reflux Stage 3a chronic kidney disease (HCC) ([facility]/HCC) Obesity (BMI 30-39.9) Diabetes mellitus type 2 in obese ([facility]) Left rotator cuff tear arthropathy Chronic pain of right knee Arthritis Unspecified arthropathy, site unspecified documented in this encounter [facility] HealthcareEvaluation note* Diagnosis Primary hypertension ([facility]/HCC)- Primary Unspecified essential hypertension Primary malignant neuroendocrine neoplasm of duodenum ([facility]) Gastroesophageal reflux disease without esophagitis Esophageal reflux Abnormal nuclear stress test Stage 3a chronic kidney disease (HCC) ([facility]/HCC) Nodule of lower lobe of left lung Type 2 diabetes mellitus with stage 3a chronic kidney disease, without long-term current use of insulin (HCC) ([facility]) Renal cyst, left Unspecified congenital cystic kidney disease NSVT (nonsustained ventricular tachycardia) ([facility]) Encounter to establish care with new doctor Left adrenal mass ([facility])- Primary Unspecified disorder of adrenal glands Type 2 diabetes mellitus with stage 3a chronic kidney disease, without long-term current use of insulin (HCC) (CMS/HCC) Primary hypertension (CMS/HCC) Unspecified essential hypertension Pneumonia of left lower lobe due to infectious organism- Primary Primary hypertension (CMS/HCC) Unspecified essential hypertension Gout, unspecified cause, unspecified chronicity, unspecified site Leukemoid reaction Type 2 diabetes mellitus with stage 3a chronic kidney disease, without long-term current use of insulin (HCC) (CMS/HCC) Gastroesophageal reflux disease without esophagitis- Primary Esophageal reflux Type 2 diabetes mellitus with stage 3a chronic kidney disease, without long-term current use of insulin (HCC) (CMS/HCC) Primary hypertension (CMS/HCC) Unspecified essential hypertension Left adrenal mass (CMS/HCC) Unspecified disorder of adrenal glands Mixed hyperlipidemia (CMS/HCC)- Primary Mixed hyperlipidemia Primary hypertension (CMS/HCC) Unspecified essential hypertension Type 2 diabetes mellitus with stage 3a chronic kidney disease, without long-term current use of insulin (HCC) (CMS/HCC) Gastroesophageal reflux disease without esophagitis Esophageal reflux Stage 3a chronic kidney disease (HCC) (CMS/HCC) Obesity (BMI 30-39.9) Diabetes mellitus type 2 in obese (CMS/HCC) Left rotator cuff tear arthropathy Chronic pain of right knee Arthritis Unspecified arthropathy, site unspecified Acute pain of left shoulder- Primary Left rotator cuff tear arthropathy documented in this encounter [facility] Present [facility] Narrative* HISTORY OF PRESENT ILLNESS: * Mr. CAR is a 71 year old male with a personal history of duodenal neuroendocrine cancer. He wasreferred [facility] the [facility] at [facility] by his provider, Ania Foster CNP. 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 CAR is of Khmer and Cym[place] descent. There is no known Ashkenazi Mormonism ancestry. Consanguinity was denied. No genetic testing has been done in the family before. [employer] Work Phone: History of Present illness NarrativePlease see previous genetics note.[employer] Work Phone: Summary Purpose Family History Unknown Family Member Name Dates Details No [...] history: Mother, Father(V49.89, Z78.9) Status:Active Advance Directives Healthcare Agents on File Name Relationship Healthcare Agent Relationshi p Communication Zoe Josep Spouse Health Care Agent [email or web address] Agents on File Name Relationship Healthcare Agent Relationshi p Communication Zoe Josep Spouse Health Care Agent [phone] (Mobile) [email or web address] Agents on File Name Relationship Healthcare Agent Relationshi p Communication Zoe Josep Spouse Health Care Agent [phone] (Mobile) [email or web address] Agents on File Name Relationship Healthcare Agent Relationshi p Communication Zoe Josep Spouse Health Care Agent [phone] (Mobile) [email or web address] Chief Complaint Duodenal well-differentiated neuroendocrine tumor* Patient [...] chest abdomen pelvis w IV contrast Jazlyn Mcarthur, SETTER OFF-[employer] [address] [facility] [place] [address] Referral ID Status Reason Start Date Expiration Date Visits Requested Visits Authorized [id number] Pending Review Perform Procedure 05/19/2023 05/18/2024 1 1 Specialty Diagnoses / Procedures Referred By Contact Referred To Contact Gastroenterology Diagnoses Primary malignant neuroendocrine neoplasm of duodenum (CMS/HCC) Procedures EGD OR ESOPHAGOGASTRODUODENOSCOPY TRANSORAL DIAGNOSTIC OR EGD TRANSORAL BIOPSY SINGLE/MULTIPLE Jazlyn Mcarthur, SETTER OFF-[employer] [address] [facility] [place] [id number] Referral ID Status Reason Start Date Expiration Date V isits Requested Visits Authorized [id number] Pending Review 05/19/2023 05/18/2024 1 1 Specialty Diagnoses / Procedures Referred By Contac t Referred To Contact Radiology Diagnoses Exam for clinical trial Procedures US COMPARISON OF OUTSIDE FILMS Grace Justice PA-C [address] [facility] [address] [place] [address] Referral ID Status Reason Start Date Expiration Date V isits Requested Visits Authorized [id number] Pending Review 07/28/2023 07/27/2024 1 1 Specialty Diagnoses / Procedures Referred By Contac t Referred To Contact Gastroenterology Diagnoses Primary malignant neuroendocrine neoplasm of duodenum (Multi) Procedures Endoscopic Ultrasound (Upper) [place] [address] [facility] [address] [place] [address] Referral ID Status Reason Start Date Expiration Date V isits Requested Visits Authorized [id number] Pending Review 06/29/2023 06/28/2024 1 1 Specialty Diagnoses / Procedures Referred By Contac t Referred To Contact Radiology Diagnoses Bilateral renal cysts Adrenal adenoma, left Procedures MRI ABDOMEN W WO CONTRAST Grace Justice PA-C [address] [place] [address] Referral ID Status Reason Start Date Expiration Date Visits Re quested Visits Authorized [id number] Closed 11/30/2023 12/07/2024 1 1 Additional Source Comments (unrecognized sect ion and content) No Status Records FoundNo Status Records FoundNo Status Records FoundNo Status Records FoundNo Status Records FoundNo Status Records FoundNo Status Records FoundNo Status Records FoundNo Status Records FoundNo Status Records FoundNo Status Records FoundNo Status Records Found INFORMATION SOURCE (unrecogn ized section and content) DATE CREATED AUTHOR 10/12/2018 [facility] DATE CREATED AUTHOR AUTHOR'S ORGANIZ ATION 06/13/2021 [facility] DATE CREATED AUTHOR AUTHOR'S ORGANIZ ATION 12/06/2021 [employer] DATE CREATED AUTHOR AUTHOR'S ORGANIZ ATION 05/14/2022 [facility] DATE CREATED AUTHOR AUTHOR'S ORGANIZ ATION 09/17/2022 [facility] DATE CREATED AUTHOR AUTHOR'S ORGANIZ ATION 07/31/2023 [facility] DATE CREATED AUTHOR AUTHOR'S ORGANIZ ATION 08/02/2023 [facility] ical Center DATE CREATED AUTHOR AUTHOR'S ORGANIZ ATION 12/08/2023 [facility] DATE CREATED AUTHOR AUTHOR'S ORGANIZ ATION 01/04/[address] [facility] DATE CREATED AUTHOR AUTHOR'S ORGANIZ ATION 04/04/2024 [facility] DATE CREATED AUTHOR AUTHOR'S ORGANIZ ATION 04/10/2024 [facility] DATE CREATED AUTHOR AUTHOR'S ORGANIZ ATION 04/13/2024 [facility] EPIC Reason for Visit (unrecogniz ed section and content) Specialty Diagnoses / Procedures Referred By Contdarnell t Referred To Contact Radiology Diagnoses Primary malignant neuroendocrine neoplasm of duodenum (CMS/HCC) Procedures CT chest abdomen pelvis w IV contrast Jazlyn Mcarthur APRN-LIGHT INDUSTRIAL [address] [facility] [place] [address] Referral ID Status Reason Start Date Expiration Date Visits Requested Visits Authorized [id number] Pending Review Perform Procedure 05/19/2023 05/18/2024 1 1 Specialty Diagnoses / Procedures Referred By Contact Referred To Contact Gastroenterology Diagnoses Primary malignant neuroendocrine neoplasm of duodenum (CMS/HCC) Procedures EGD OR ESOPHAGOGASTRODUODENOSCOPY TRANSORAL DIAGNOSTIC OR EGD TRANSORAL BIOPSY SINGLE/MULTIPLE Jazlyn Mcarthur APRN-LIGHT INDUSTRIAL [address] [address] [facility] [place] [address] Referral ID Status Reason Start Date Expiration Date V isits Requested Visits Authorized [id number] Pending Review 05/19/2023 05/18/2024 1 1 Reason Comments New Med Request Specialty Diagnoses / Procedures Referred By Contac t Referred To Contact Radiology Diagnoses Exam for clinical trial Procedures US COMPARISON OF OUTSIDE FILMS Grace Justice PA-C [address] [facility] [address] [place] [address] Referral ID Status Reason Start Date Expiration Date V isits Requested Visits Authorized [id number] Pending Review 07/28/2023 07/27/2024 1 1 Specialty Diagnoses / Procedures Referred By Contac t Referred To Contact Gastroenterology Diagnoses Primary malignant neuroendocrine neoplasm of duodenum (Multi) Procedures Endoscopic Ultrasound (Upper) [place] [address] [facility] [address] [place] [address] Referral ID Status Reason Start Date Expiration Date V isits Requested Visits Authorized [id number] Pending Review 06/29/2023 06/28/2024 1 1 Specialty Diagnoses / Procedures Referred By Contac t Referred To Contact Radiology Diagnoses Bilateral renal cysts Adrenal adenoma, left Procedures MRI ABDOMEN W WO CONTRAST Grace Justice PA-C [address] [facility] [address] [place] [address] Referral ID Status Reason Start Date Expiration Date Visits Re quested Visits Authorized [id number] Closed 11/30/2023 12/07/2024 1 1 Reason Comments Diabetes Hypertension Reason Comments Pain Specialty Diagnoses / Procedures Referred By Contac t Referred To Contact Orthopaedic Surgery Diagnoses Left rotator cuff tear arthropathy Chronic pain of right knee Arthritis Miriam Gatica, AJNEL [address] [place] [address] Phone: tel: fax: Jenniffer Sears PA [address] [facility] [address] [place] [address] Phone: tel: fax: Referral ID Status Reason Start Date Expiration Date V isits Requested Visits Authorized [id number] Closed Specialty Services Required 04/12/2024 10/09/2024 1 1 Care Teams (unrecognized sec tion and content) Seasonal Package Handler Relationship Specialty Start Date End Date Renea Ying DO [address] [facility] [place] [address] PCP - General Family Medicine 05/26/23 Seasonal Package Handler Relationship Specialty Start Date End Date Renea Ying DO [address] [facility] [place] [address] PCP - General Family Medicine 05/26/23 Seasonal Package Handler Relationship Specialty Start Date End Date Renea Ying DO [address] [facility] [place] [address] PCP - General Family Medicine 05/26/23 Seasonal Package Handler Relationship Specialty Start Date End Date Shaikh Ayala MD [address] [place] [id number] PCP - General Internal Medicine 07/15/23 Seasonal Package Handler Relationship Specialty Start Date End Date Shaikh Ayala MD [address] [place] [address] PCP - General Internal Medicine 07/15/23 Seasonal Package Handler Relationship Specialty Start Date End Date Renea Ying DO [address] [facility] [place] [address] PCP - General Family Medicine 05/26/23 [place] [address] [place] [address] Consulting Physician Hematology and Oncology 06/15/23 Seasonal Package Handler Relationship Specialty Start Date End Date Shaikh Ayala MD [address] [place] [address] PCP - General 07/31/23 Seasonal Package Handler Relationship Specialty Start Date End Date Shaikh Ayala MD [address] [place] [address] PCP - General 07/31/23 Seasonal Package Handler Relationship Specialty Start Date End Date Shaikh Ayala MD [address] [place] [phone] PCP - General Internal Medicine 07/15/23 Renea Ying DO [address] [place] [address] PCP - ACO Reach 08/14/23 Seasonal Package Handler Relationship Specialty Start Date End Date Renea Ying DO [address] [place] [address] PCP - ACO Reach 08/14/23 Miriam Gatica NP [address] [place] [address] Nurse Practitioner Family Medicine 04/12/24 Seasonal Package Handler Relationship Specialty Start Date End Date Renea Ying DO [address] [place] [address] PCP - ACO Reach 08/14/23 Gerald Low MD [address] [place] [address] PCP - General Family Medicine 04/13/24 Miriam Gatica NP [address] [place] [address] Nurse Practitioner Family Medicine 04/12/24 Seasonal Package Handler Relationship Specialty Start Date End Date Renea Ying DO [address] [place], [place] [id number] PCP - ACO Reach 08/14/23 Gerald Low MD [address] [place] [phone] PCP - General Family Medicine 04/13/24 Miriam Gatica NP [address] [place] [phone] Nurse Practitioner [facility] Medicine 04/12/24 FOR RECORDS PERTAINING TO PATIENTS WHO ARE [...] BE BASED ON THE PRIMARY CLINICAL RECORDS. [employer] provides no warranty or guarantee of the accuracy or completeness of information in this document.
[2024-04-14 08:43] LABS: Basophils Percent Auto 0.1 % (0.2-2.0); Eosinophils Percent Auto 0.1 % (0.9-7.0); Hematocrit 44.8 % (42.0-54.0); Hemoglobin 14.3 g/dL (14.0-18.0); Immature Granulocytes Abs Auto 0.04 10^3/uL (0.00-0.03); Immature Granulocytes Pct Auto 0.3 % (0.0-0.5); Lymphocytes Absolute Auto 1.2 10^3/uL (1.2-3.8); Lymphocytes Percent Auto 8.8 % (20.5-60.0); Mean Corpuscular HGB Conc 31.9 g/dL (29.9-35.2); Mean Corpuscular Hemoglobin 28.1 pg (25.9-34.0); Monocytes Absolute Auto 0.7 10^3/uL (0.3-0.8); Monocytes Percent Auto 4.9 % (1.7-12.0); Neutrophils Absolute Auto 11.6 10^3/uL (1.4-6.5); Neutrophils Percent Auto 85.8 % (43.0-75.0); Platelet Count 379 10^3/uL (150-450); Red Blood Count 5.09 10^6/uL (4.70-6.10); Red Cell Distribution Width 16.1 % (11.0-15.0); White Blood Count 13.5 10^3/uL (4.0-11.0)
[2024-04-14 09:05] LABS: Estimated Average Glucose 160 mg/dL; Glycohemoglobin A1C 7.2 % (4.5-6.2)
[2024-04-14 09:26] LABS: Alanine Aminotransferase 17 U/L (16-63); Albumin Globulin Ratio 0.9; Albumin Level 3.4 g/dL (3.4-5.0); Alkaline Phosphatase 137 U/L (46-116); Anion Gap 16.9; Aspartate Amino Transferase 14 U/L (15-37); BUN Creatinine Ratio 18.9; Bilirubin Total 0.4 mg/dL (0.2-1.0); Calcium 8.9 mg/dL (8.5-10.1); Carbon Dioxide 23.4 mmol/L (21.0-32.0); Chloride 104 mmol/L (98-107); Chol HDL Ratio 3.2; Cholesterol 114 mg/dL (<=200); Estimated GFR (African America >60 (>=60 mL/min/1.73m^2); Estimated GFR (Non-African Ame 58 (>=60 mL/min/1.73m^2); Glucose 149 mg/dL (74-106); HDL Cholesterol 36 mg/dL (40-60); Potassium 4.3 mmol/L (3.5-5.1); Sodium 140 mmol/L (136-145); Total Protein 7.4 g/dL (6.4-8.2); Triglycerides 106 mg/dL (<=150); VLDL CHOLESTEROL 21.2 mg/dL
== END 2024-04-14 08:12 | disposition home or self-care (01) ==
LOC: LAB 08:15
PROVIDERS: PCP Internal Medicine
DX: E78.2 Mixed hyperlipidemia (principal); E11.22 Type 2 diabetes mellitus with diabetic chronic kidney disease; N18.31 Chronic kidney disease, stage 3a; I12.9 Hypertensive chronic kidney disease with stage 1 through stage 4 chronic kidney disease, or unspecified chronic kidney disease
CPT/HCPCS: 36415; 80053; 80061; 83036; 85025

== ENCOUNTER 2024-08-23 16:13 | Emergency (ER) | payer MEDICARE, OTHER, SELFPAY ==
[2024-08-23 16:24] VITALS: BP 158/89; PULSE 79; TEMP 36.6; O2SAT 98; BMI 33.0
--- NOTE | 2024-08-23 16:26 | ED.GENADUL1 ---
HPI HPI - General Adult General Chief complaint: Extremity Injury, Lower Stated complaint: left lower extremity injury Time Seen by Provider: 08/23/24 16:23 Source: patient Mode of arrival: Wheelchair Limitations: no limitations History of Present Illness HPI narrative: 74-year-old male presents for pain to his left ankle. Today he was stepping over a baby gate and he twisted his ankle. He points to the lateral malleolus to indicate the area of pain. No other injury was sustained. He states he has arthritis in that ankle but has never broken it. The pain is moderate and worse in certain positions. Related Data Home Medications ?Medication ?Instructions ?Recorded ?Confirmed allopurinol 300 mg tablet 300 mg PO DAILY 07/09/23 08/23/24 fluticasone propionate 50 1 spray intranasal DAILY PRN 07/09/23 08/23/24 mcg/actuation nasal allergy symptoms spray,suspension (24 Hour Allergy Relief) furosemide 20 mg tablet 20 mg PO DAILY 07/09/23 08/23/24 losartan 100 mg tablet 100 mg PO DAILY 07/09/23 08/23/24 omeprazole 40 mg capsule,delayed 40 mg PO DAILY 07/09/23 08/23/24 release rosuvastatin 10 mg tablet 20 mg PO DAILY 07/09/23 08/23/24 bisoprolol fumarate 10 mg tablet 10 mg PO BID 10/07/23 08/23/24 glimepiride 4 mg tablet 4 mg PO DAILY 10/07/23 08/23/24 tamsulosin 0.4 mg capsule 0.4 mg PO DAILY 10/07/23 08/23/24 empagliflozin 25 mg tablet 25 mg PO QDAY 08/23/24 08/23/24 (Jardiance) Allergies Allergy/AdvReac Type Severity Reaction Status Date / Time ciprofloxacin (From Cipro) Allergy Severe Diarrhea Verified 08/23/24 16:24 erythromycin base Allergy Severe Diarrhea Verified 08/23/24 16:24 lisinopril Allergy Severe Cough Verified 08/23/24 16:24 Opioid HPI Opioid Management Most Recent Opioid Data: Last Pain Scale 6 08/23/24 16:31 08/23/24 Review of Systems ROS Narrative A ten point review of systems is negative except as noted above. [facility] Medical History Bradycardia with 31-40 beats per minute ?R00.1 - Bradycardia, unspecified (ICD-10) Paroxysmal cardiac arrhythmia ?I49.8 - Other specified cardiac arrhythmias (ICD-10) Dizziness ?R42 - Dizziness and giddiness (ICD-10) Edema ?R60.9 - Edema, unspecified (ICD-10) Gout ?M10.9 - Gout, unspecified (ICD-10) Rotator cuff injury ?S46.009A - Unspecified injury of muscle(s) and tendon(s) of the rotator cuff of unspecified shoulder, initial encounter (ICD-10) Surgical History FH: cholecystectomy ?Z83.79 - Family history of other diseases of the digestive system (ICD-10) History of appendectomy ?Z90.49 - Acquired absence of other specified parts of digestive tract (ICD-10) Family History Father Family history of cancer Family history of diabetes mellitus Family history of hypertension Mother Family history of cancer Family history of hypertension Social History Within the past year, how often did you have a drink containing alcohol: never Score interpretation: A score less than 4 is consistent with normal alcohol consumption. Smoking status: Former smoker Non-prescribed substance use: denies use Previous occupational history: retired Highest level of school completed/degree received: some college, no degree Are you now , , , , never or living with a partner: In a typical week, how many times do you talk on the telephone with family, friends, or neighbors: 3 or more times per week How often do you get together with friends or relatives: 3 or more times per week How often do you attend jainism or scientology services: never Little interest or pleasure in doing things: not at all Feeling down, depressed, or hopeless: not at all Feel stressed/tense/nervous/anxious/difficulty sleeping: not at all Do you think of yourself as: straight/heterosexual Gender Identity: male Exam Narrative Exam Narrative: Nurses note and vital signs reviewed and patient is not hypoxic. General: The patient appears well and in no apparent distress. Patient is resting comfortably on cart. Skin: Warm, dry, no pallor noted. There is no rash noted. Head: Normocephalic, atraumatic Eye: Normal conjunctiva, no drainage Ears, Nose, Mouth, and Throat: oral mucosa is moist. Nares patent. Cardiovascular: Regular Rate and Rhythm Respiratory: Patient is in no distress, no accessory muscle use, lungs are clear to auscultation, no wheezing, rales or rhonchi Back: non-tender GI: Soft and nontender Musculoskeletal: The left foot has no tenderness present including the fifth metatarsal area. He has some tenderness over the left lateral malleolus and the skin is intact. Medial malleolus nontender. Knee nontender. Neurological: A&O, normal speech Psychiatric: Cooperative Constitutional Vital Signs, click to edit/add: Last Vital Signs Temp 97.9 F 08/23/24 16:24 Pulse 79 08/23/24 16:24 Resp 14 08/23/24 16:24 BP 158/89 H 08/23/24 16:24 Pulse Ox 98 08/23/24 16:24 O2 Del Method Room Air 08/23/24 16:24 Course Vital Signs Vital signs: Vital Signs Temperature 97.9 F 08/23/24 16:24 Pulse Rate 79 08/23/24 16:24 Respiratory Rate 14 08/23/24 16:24 Blood Pressure 158/89 H 08/23/24 16:24 Pulse Oximetry 98 08/23/24 16:24 Oxygen Delivery Method Room Air 08/23/24 16:24 Temperature 97.9 F 08/23/24 16:24 Pulse Rate 79 08/23/24 16:24 Respiratory Rate 14 08/23/24 16:24 Blood Pressure 158/89 H 08/23/24 16:24 Pulse Oximetry 98 08/23/24 16:24 Oxygen Delivery Method Room Air 08/23/24 16:24 Medical Decision Making MDM Narrative Medical decision making narrative: X-ray shows no acute findings per radiologist. Kwaku wrap and air splint applied, application checked by me and found to be appropriate, he is neurovascular intact. Follow-up with PCP if there is no improvement. Treatment diagnosis and follow-up were discussed with the patient. Differential Diagnosis Differential Diagnosis: Sprain, fracture Imaging Data Left ankle: Radiologist's impression: Soft tissue swelling without acute osseous abnormality Discharge Plan Discharge Chief Complaint: Extremity Injury, Lower Clinical Impression: Left ankle sprain Patient Disposition: Home, Self-Care Time of Disposition Decision: 17:05 Condition: Good Mode of Transportation: Private Vehicle Prescriptions / Home Meds: No Action glimepiride 4 mg tablet 4 mg PO DAILY tamsulosin 0.4 mg capsule 0.4 mg PO DAILY bisoprolol fumarate 10 mg tablet 10 mg PO BID Jardiance 25 mg tablet 25 mg PO QDAY allopurinol 300 mg tablet 300 mg PO DAILY furosemide 20 mg tablet 20 mg PO DAILY losartan 100 mg tablet 100 mg PO DAILY omeprazole 40 mg capsule,delayed release(DR/EC) 40 mg PO DAILY rosuvastatin 10 mg tablet 20 mg PO DAILY fluticasone propionate [24 Hour Allergy Relief] 50 mcg/actuation spray,suspension 1 spray intranasal DAILY PRN (Reason: allergy symptoms) Rx Instructions: administer into each nostril Print Language: Slovenian Instructions: Ankle Sprain (ED) Referrals: Tomeka Rosado NP [Primary Care Provider] - 1 week
== END 2024-08-23 17:19 | disposition home or self-care (01) ==
PROVIDERS: Emergency Provider Emergency Medicine; PCP Nurse Practitioner
DX: S93.402A Sprain of unspecified ligament of left ankle, initial encounter (principal); X50.1XXA Overexertion from prolonged static or awkward postures, initial encounter; Z90.49 Acquired absence of other specified parts of digestive tract; Z87.891 Personal history of nicotine dependence
CPT/HCPCS: 73610; 99283

== ENCOUNTER 2024-11-28 14:43 | Outpatient (OUT) | payer MEDICARE, OTHER, SELFPAY ==
--- OUTSIDE RECORDS SUMMARY | 2024-11-28 14:52 | XMS_ITS | Clinical Summary ---
Author Organization [facility] Address [address] [place] [address] Care Team Providers Care Program Evaluation Consultant Name Role Phone Tomeka Rosado MD Primary Care Provider [phone] Allergies Active Allergy Reactions Criticality Noted Date Comments Azithromycin Other 07/20/2023 Ciprofloxacin Other 07/20/2023 Lisinopril Cough 07/20/2023 Medications empagliflozin (Jardiance) 25 mg Take 25 mg by mouth in the morning. Active allopurinol (Zyloprim) 300 mg tablet Take 300 mg by mouth in the morning. Active fluticasone (Flonase) 50 mcg/actuation nasal spray Administer 2 sprays into each nostril in the morning. Shake gently. Before first use, prime pump. After use, clean tip and replace cap. Active furosemide (Lasix) 20 mg tablet Take 20 mg by mouth in the morning. Active glimepiride (Amaryl) 4 mg tablet Take 4 mg by mouth before breakfast. Active losartan (Cozaar) 100 mg tablet Take 100 mg by mouth in the morning. 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 180 tablet 3 07/27/19 Active Additional Information Patient not taking.Reported on 10/16/2023 tamsulosin (Flomax) 0.4 mg 24 hr capsule Take 1 capsule by mouth in the evening. 07/31/19 24 Active hydrALAZINE (Apresoline) 50 mg tabletIndications: Primary hypertension Take 1 tablet (50 mg) by mouth in the morning and at bedtime. 180 tablet 3 08/25/19 24 Active Additional Information Patient not taking.Reported on 10/16/2023 amLODIPine (Norvasc) 10 mg tablet Take 5 mg by mouth if needed. Takes when BP is elevated Active omeprazole (PriLOSEC) [address] capsule Take 40 mg by mouth before breakfast. 04/12/20 24 Active rosuvastatin (Crestor) 20 mg tabletIndications: Mixed hyperlipidemia TAKE 1 TABLET IN THE MORNING 90 tablet 3 07/28/19 25 Active bisoprolol (Zebeta) 5 mg tabletIndications: Palpitations TAKE 1 TABLET IN THE MORNING AND AT BEDTIME 180 tablet 3 10/04/19 25 Active Active Problems Problem Noted Date Diagnosed Date Arthritis 05/31/2024 History of tobacco abuse 05/31/2024 Hypersomnia 05/31/2024 URTI (acute upper respiratory infection) 024 Leukemoid reaction 10/12/2023 10/27/2023 Overview (10/27/2023): Last Assessment & Plan: WBC of 19 k on labs drawn at [facility] - recheck Pneumonia of left lower lobe due to infectious o rganism 10/12/2023 10/27/2023 Overview (10/27/2023): Last Assessment & Plan: Left lower lobe infiltrate on CXR, mild resp symptoms including cough. He presented to ED for fever. Will start patient on Doxycycline and treat for bacterial PNA. Left adrenal mass 08/11/2023 08/18/2023 Overview (08/18/2023): Last Assessment & Plan: 1.4 x 1.5 cm left adrenal mass, stable. Check cortisone, aldosterone, metanephrine to make sure Adenoma is not functioning Assessment & Plan (08/18/2023 11:09 AM EST): D/W that he may benefit from seeing a test and research reactor operator for DM, adrenal mass Abnormal nuclear stress test 07/15/202310/2023 Overview (08/18/2023): Last Assessment & Plan: Nuclear stress test 07/08 - perfusion defect in LAD distribution. Asymptomatic. Instructed to start using ASA. Patient scheduled for [facility] on 07/29/23 No prior hx of CAD Encounter to establish care with new doctor 06/1708/18/2023 Overview (08/18/2023): Last Assessment & Plan: New Patient, here to establish care. Reviewed medical, surgical and social hx. Reviewed available old records. Reviewed and updated medication list. New Patient for this practice. Was previously established with Dr Barajas but had to switch since she moved to [facility]. Near syncope 07/10/2023 Assessment & Plan (08/18/2023 11:07 AM EST): Currently stable, no further episode noted Assessment & Plan (07/10/2023 5:18 PM EST): Recently admitted to [facility] for near syncope, bradycardia, abnormal stress test with NSVT while on treamill. Frequent PVCS NSVT (nonsustained ventricular tachycardia) 06/16 Assessment & Plan (08/18/2023 11:06 AM EST): Finish event monitor and f/U with EP Dr San Assessment & Plan (07/10/2023 5:19 PM EST): 4 beat NSVT noted on treadmill stress test- ordered cardiac cath for further ischemia evaluation with recent near syncope, abnormal EKG and stress test, chest pain Abnormal electrocardiogram (ECG) (EKG) Assessment & Plan (07/10/2023 5:20 PM EST): Frequent PVCs, bigemeny, NSVT Gout 06/29/2023 08/18/2023 Overview (08/18/2023): controlled with allopurinol Nodule of lower lobe of left lung 06/29/2023 08/18/2023 Overview (08/18/2023): repeat CT scan in 6 months Last Assessment & Plan: Repeat CT chest in 09/05. Former smoker. Reason for CT chest is to ensure nodule is stable. Hx of duodenal cancer that is currently in remission Renal cyst, left 06/29/2023 08/18/2023 Overview (08/18/2023): Last Assessment & Plan: Increased in size on CT 06/06 - repeat US. Refer to Urology. Has an appointment with Dr Mcfarland in November. Primary malignant neuroendocrine neoplasm of duo denum 04/28/2023 08/18/2023 Overview (08/18/2023): Last Assessment & Plan: Limited with no metastasis. S/p resection. In remission. Following Oncology. Yearly EGD next due 06/07. Left renal cyst - increased in size. Has Urology appointment in November -- ordered US kidney. Will try to get him in sooner. Adrenal mass 2 cm - stable, unchanged. Will address next appointment Pulm nodule - repeat CT chest planned in 09/05. Accelerated hypertension 02/24/2023 024 Allergic rhinitis 02/24/2023 08/18/2023 Anemia 02/24/2023 08/18/2023 Balance problem 02/24/2023 08/18/2023 Benign prostatic hyperplasia with lower urinary tract symptoms 02/24/2023 08/18/2023 Chronic sinusitis 02/24/2023 08/18/2023 Diverticulosis of sigmoid colon 02/24/2023 08/18/2023 Esophageal dysphagia 02/24/2023 08/18/2023 Fall 02/24/2023 08/18/2023 Hypoglycemia 02/24/2023 08/18/2023 Left rotator cuff tear arthropathy 02/24/2023 08/18/2023 Obesity (BMI 30-39.9) 02/24/2023 08/18/2023 Other chronic pain 02/24/2023 08/18/2023 Pain in right knee 02/24/2023 08/18/2023 Pityriasis rosea 02/24/2023 08/18/2023 Slow transit constipation 02/24/20232023 Tubular adenoma of colon 02/24/2023 024 Type 2 diabetes mellitus wit h kidney complication, without long-term current use of insulin 02/24/2023 Diabetic polyneuropathy asso ciated with type 2 diabetes mellitus 11/24/2022 08/18/2023 Mixed hyperlipidemia 11/24/2022 08/18/2023 Assessment & Plan (08/18/2023 11:07 AM EST): Continue crestor 20 mg daily Morbid obesity 11/24/2022 08/18/2023 Primary hypertension 11/24/2022 08/18/2023 Overview (08/18/2023): Last Assessment & Plan: Too tightly controlled with periods of orthostasis. Tolerating Anti hypertensive w/o adverse effects. Denies lightheadedness, dizziness, syncope, presyncope. On Losartan, Bisoprolol. Discontinue Norvasc. Patient encouraged to continue with home BP monitoring and call office if he experiences orthostatic symptoms or persistently elevated BP. Assessment & Plan (08/18/2023 11:04 AM EST): Hypertension is controlled today with outliers noted on B/P Log- In light of bradycardia with PVCs/bigemeny, fatigue will stop bisprolol and start hydralazine for HTN management. D/W pt goal b/p is < 130/80 and to call office for concerns and may need to adjust dose in future. Continue all other meds Diabetes mellitus type 2 in obese 06/24/2021 08/18/2023 Neuroendocrine carcinoma 11/28/2020 024 CKD (chronic kidney disease) stage 3, GFR 30-59 ml/min Bradycardia by electrocardiogram Assessment & Plan (08/18/2023 11:09 AM EST): Stop bisprolol- no beta blockers at this time Frequent PVCs Assessment & Plan (08/18/2023 11:07 AM EST): F/U with Dr San Encounters Date Type Department Care Team Description 11/23/2024 Orders Only [facility] [address] [place] [address] Provider, MD Addy 11/22/2024 3:30 PM EDT Office Visit [facility] [address] [place] [address] Noe San MD Palpitations (Primary Dx) 10/02/2024 Refill [facility] [address] [place] [address] Noe San MD Palpitations from Last 3 Months Family History Medical History Relation Name Comments Cancer Brother 1 Carrington Diabetes type II Brother 1 Carrington Hypertension Brother 1 Carrington Cancer Brother 2 Artem Diabetes type II Brother 2 Artem Cancer Father Demetri Learyon Diabetes type II Father Demetrichas Car Hypertension Father Demetrichas Car Angina Mother Yasmin Josep Cancer Mother Yasmin Josep Heart attack Mother Yasmin Josep Heart failure Mother Yasmin Josep Hypertension Mother Yasmin Josep Cancer Sister Adrienne Diabetes type II Sister Adrienne Relation Name Status Comments Brother 1 Carrington Brother 2 Artem Father Demetri Josep Mother Yasmin Josep Sister Adrienne Social History Tobacco Use Types Packs/Day Years Used Date Smoking Tobacco: Former Cigarettes 1 15.9 0 10/14/1967 - 09/14/1983 Smokeless Tobacco: Never Tobacco Cessation:Counseling Given: Not Answered Alcohol Use Standard Drinks/Week Comments Not Currently 0 (1 standard drink = 0.6 oz pur e alcohol) I rarely drink. [place] Safety & Environment Answer Date Rec orded Fear of Current or Ex-Partner Not on file Emotionally Abused Not on file 08/06/2023 Physically Abused Not on file 08/06/2023 Sexually Abused Not on file 08/06/2023 Physically or Sexually Abused Not on file Sex and Gender Information Value Date Recorded Sex Assigned at Male 07/28/2023 6:49 AM EST Legal Sex Male 12:14 AM EDT Gender Identity Male 07/28/2023 6:49 AM EST Sexual Orientation Heterosexual or Straight 07/16 6:49 AM EST Last Filed Vital Signs Vital Sign Reading Time Taken Comments Blood Pressure 103/70 11/22/2024 4:08 PM EDT Pulse 79 11/22/2024 4:08 PM EDT Temperature - - Respiratory Rate 16 10/16/2023 8:59 AM EDT Oxygen Saturation 94% 11/22/2024 3:58 PM EDT Inhaled Oxygen Concentration - - Weight 103 kg (228 lb) 11/22/2024 3:58 PM EDT Height 177.8 cm (5' 10 ) 11/22/2024 3:58 PM EDT Body Mass Index 32.71 11/22/2024 3:58 PM EDT Plan of Treatment Health Maintenance Due Date Last Done Comments CT Colonography 1949 FIT-DNA 1949 FIT 1949 FOBT 1950 Medicare Annual Wellness (AWV) 1950 Sigmoidoscopy 1950 Diabetes: Retinopathy Screening 1959 Depression Screening 1961 Zoster Vaccines (1 of 2) 1999 05/24/2016, 12/06/2015 Fall Risk Screening 2014 COVID-19 Vaccine ( season) 2024 04/28/2023, 10/15/2021, 03/25/2021, Additional history exists Diabetes: Hemoglobin A1C 04/14/2024 01/13/2024 Adult Tetanus 10/27/2028 10/27/2018, 10/13, 03/14/2011 Colonoscopy 11/28/2030 11/28/2020 Colorectal Cancer Screening 11/28/2030 Pneumococcal Vaccine: 50+ Years Completed 02/24/2023, 11/22/2018, 05/21/2018, Additional history exists Influenza Vaccine Completed 04/05/2024, , 03/27/2022, Additional history exists HIB Vaccines Aged Out No longer eligi ble based on patient's age to complete this topic HPV Vaccines Aged Out No longer eligi ble based on patient's age to complete this topic IPV Vaccines Aged Out No longer eligi ble based on patient's age to complete this topic Meningococcal B Vaccine Aged Out No l onger eligible based on patient's age to complete this topic Meningococcal Vaccine Aged Out No aminah jenna eligible based on patient's age to complete this topic Rotavirus Vaccines Aged Out No longer eligible based on patient's age to complete this topic Insurance MEDICARE Member Subscriber Plan / Payer (Ef fective 2016-Present) Name:Leonard Cart Yissel Member ID:[id number] Relation to Subscriber:Self Name:Leonard Carsancho Dey Subscriber ID:[id number] Payer ID:[id number] Group ID:Not on file Type:Medicare Address: [facility] [place] [id number] [facility] Care Teams Program Evaluation Consultant Relationship Specialty Start Date End Date Tomeka Rosado MD [address] [place] [id number] PCP - General Nurse Practitioner 11/22/24
--- OUTSIDE RECORDS SUMMARY | 2024-11-28 14:52 | XMS_ITS | Encounter Summary ---
Author Organization [facility] Address [address] [place] [address] Care Team Providers Care Relations Manager Name Role Phone Tomeka Rosado MD Primary Care Provider [phone] Encounter Details Date Type Department Care Team (Late st Contact Info) Description 11/23/2024 Orders Only [facility] [address] [place] [address] ProviderAddy MD [address] [place] [id number] Social History Tobacco Use Types Packs/Day Years Used Date Smoking Tobacco: Former Cigarettes 1 15.9 0 10/14/1967 - 09/14/1983 Smokeless Tobacco: Never Alcohol Use Standard Drinks/Week Comments Not Currently [...] Heterosexual or Straight 07/16 6:49 AM EST documented as of this encounter Plan of Treatment Not on file documented as of this encounter Procedures Procedure Name Priority Date/Time Associated Diagnosis Comments CARDIAC EVENT MONITOR Routine 07/01/2024 9:57 AM EST documented in this encounter Results * Cardiac event monitor (07/01/2024 9:57 AM EST) Anatomical Region Laterality Modality Other us Historical Provider [facility] STEPHAN CORREA Final Result documented in this encounter Visit Diagnoses Not on filedocumented in this encounter Care Teams Relations Manager Relationship Specialty Start Date End Date Tomeka Rosado MD [address] [place] [address] PCP - General Nurse Practitioner 11/22/24 documented as of this encounter
--- OUTSIDE RECORDS SUMMARY | 2024-11-28 14:52 | XMS_ITS | Clinical Summary ---
Author Organization [facility] tem Address [id number] [address] [place] [address] Care Team Providers Care Assembler [employer] Cell [employer] Battery Name Role Phone Renea Barajas Primary Care Provider [phone] Allergies Active Allergy Reactions Criticality Noted Date Comments Azithromycin 03/24/2018 Ciprofloxacin Hcl 06/24/2021 Lisinopril 06/24/2021 Medications allopurinoL (ZYLOPRIM) 300 mg tablet 09/17/2020 Active amLODIPine (NORVASC) 10 mg tablet 09/17/2020 Active bisoprolol (ZEBETA) 5 mg tablet 09/17/2020 Active fluticasone propionate (FLONASE) 50 mcg/actuation nasal spray 09/17/2020 Active furosemide (LASIX) 20 mg tablet 10/07/2020 Active glimepiride (AMARYL) 4 mg tablet 10/07/2020 Active losartan (COZAAR) 100 mg tablet 09/17/2020 Active omeprazole (PriLOSEC) 40 mg capsule 11/01/2020 Active rosuvastatin (CRESTOR) 10 mg tablet 09/17/2020 Active pioglitazone (ACTOS) 30 mg tablet Take 30 mg by mouth daily. Active Active Problems Problem Noted Date Diagnosed Date Diabetes mellitus type 2 in obese 06/24/2021 Overview (09/14/2023): replacing diagnoses that were inactivated after the 09/13 regulatory import Family History Medical History Relation Name Comments Pancreatic cancer Brother Aneurysm Father Cancer Mother Heart disease Mother Thyroid cancer Mother Breast cancer Sister Relation Name Status Comments Brother Alive Father Mother Sister Alive Son 1 Alive Son 2 Alive Social History Tobacco Use Types Packs/Day Years Used Date Smoking Tobacco: Former Cigarettes Q uit: 1983 Smokeless Tobacco: Former Quit: 1983 Alcohol Use Standard Drinks/Week Comments Yes 0 (1 standard drink = 0.6 oz pur e alcohol) socially Childcare Answer Date Recorded Childcare Unknown 11/24/2018 Employment Answer Date Recorded Employment Unknown 11/24/2018 Purpose - Life Answer Date Recorded Purpose and direction in life Unknown Sex and Gender Information Value Date Recorded Sex Assigned at Not on file Legal Sex Male 11:30 AM EDT Gender Identity Not on file Sexual Orientation Not on file Last Filed Vital Signs Vital Sign Reading Time Taken Comments Blood Pressure 112/62 06/24/2021 1:16 PM EST Pulse 74 05/01/2015 12:00 AM EST Temperature 36.9 C (98.4 F) 06/24/2021 1:16 PM EST Respiratory Rate - - Oxygen Saturation - - Inhaled Oxygen Concentration - - Weight 105.2 kg (232 lb) 06/24/2021 1:16 PM EST Height 177.8 cm (5' 10 ) 06/24/2021 1:16 PM EST Body Mass Index 33.29 06/24/2021 1:16 PM EST Plan of Treatment Health Maintenance Due Date Last Done Comments Diabetic Ophthalmology Exam 1949 Depression Screening 1961 Tobacco Screening 1961 Abdominal Aortic Aneurysm (A AA) Screen 2014 Fall Risk Screening 2014 Zoster (Shingles) Vaccine (2 of 3) 07/19/20162015, 05/15/2016 Colonoscopy 11/28/2021 11/28/2020, 10/14/2010 COVID-19 Vaccine (2023-2 5 season) 2024 03/25/2021, 08/07/2020, 07/17/2020 Influenza Vaccine 02/13/2025 03/01/2021, , 03/09/2019, Additional history exists DTaP,Tdap and Td Vaccines (3 - Td or Tdap) 10/27/2028 10/27/2018, 03/14/2011 Medical Devices Not on file Procedures Procedure Name Priority Date/Time Associated Diagnosis Comments COLONOSCOPY Routine 11/28/2020 Rectal bleeding from Last 3 Months or Most Recently Relevant to Health Maintenance Results * Colonoscopy (11/28/2020) Jeovanny Murphy DO GI PROCEDURE ORDERABLES Fin al Result MANUALLY TRANSCRIBED RESULTS from Last 3 Months or Most Recently Relevant to Health Maintenance Insurance MEDICARE [id number] Care Teams Assembler [employer] Cell [employer] Relationship Specialty Start Date End Date Renea Barajas DO [address] [place] [address] PCP - General Family Medicine 11/21/20
--- OUTSIDE RECORDS SUMMARY | 2024-11-28 14:52 | XMS_ITS ---
Author Organization [facility] Address [address] [place] [address] Care Team Providers Care Mixer Runner Name Role Phone Tomeka Rosado MD Primary Care Provider [phone] Active Problems Problem Noted Date Diagnosed Date Arthritis 05/31/2024 History of tobacco abuse 05/31/2024 Hypersomnia 05/31/2024 URTI (acute upper respiratory infection) 024 Leukemoid reaction 10/12/2023 10/27/2023 Overview (10/27/2023): Last Assessment & Plan: WBC of 19 k on labs drawn at [facility] - recheck Pneumonia of left lower lobe [...] that he may benefit from seeing a extension service specialist for DM, adrenal mass Abnormal nuclear stress test 07/15/202310/2023 Overview (08/18/2023): Last Assessment & Plan: Nuclear stress test 07/08 - perfusion defect in LAD distribution. Asymptomatic. Instructed to start using ASA. Patient scheduled for [facility] on 07/29/23 No prior hx of CAD Encounter to establish care with new doctor 06/1708/18/2023 Overview (08/18/2023): Last Assessment & Plan: New Patient, here to establish care. Reviewed medical, surgical and social hx. Reviewed available old records. Reviewed and updated medication list. New Patient for this practice. Was previously established with Dr Barajas but had to switch since she moved to [facility]. Near syncope 07/10/2023 Assessment & Plan (08/18/2023 11:07 AM EST): Currently stable, no further episode noted Assessment & Plan (07/10/2023 5:18 PM EST): Recently admitted to [facility] for [...] 11:07 AM EST): F/U with Dr San Current Treatment and Therapy Plans No current plan information found. Past Treatment and Therapy Plans No past plan information found. Lifetime Dose Tracking * Chemical Lifetime Dose Automatic Entry Manual Entr y Fluoro Time 3.4 minutes 0 minutes 3.4 minutes Air Kerma 296 mGy 0 mGy 296 mGy
--- OUTSIDE RECORDS SUMMARY | 2024-11-28 14:52 | XMS_ITS | Referral Summary ---
Author Organization [facility] Address [address] [place] [address] Care Team Providers Care Transportation Consultant Name Role Phone Tomeka Rosado MD Primary Care Provider [phone] Encounters Date Type Department Care Team Description 11/23/2024 Orders Only [facility] [address] [place] [address] ProviderAddy MD 11/22/2024 3:30 PM EDT Office Visit [facility] [address] [place] [address] Noe San MD Palpitations (Primary Dx) 10/02/2024 Refill [facility] [address] [place] [address] Noe San MD Palpitations from Last 3 Months Allergies Active Allergy Reactions Criticality Noted Date [...] 10 mg tabletIndications: Coronary artery disease involving chippewa-cree coronary artery of chippewa-cree heart without angina pectoris Take 2 tablets (20 mg) by mouth in the morning. 180 tablet 3 07/27/19 Active Additional Information Patient not taking.Reported on 10/16/2023 tamsulosin (Flomax) 0.4 mg 24 hr capsule Take 1 capsule by mouth in the evening. 07/31/19 Active hydrALAZINE (Apresoline) 50 mg tabletIndications: Primary hypertension Take 1 tablet (50 mg) by mouth in the morning and at bedtime. 180 tablet 3 08/25/19 Active Additional Information Patient not taking.Reported on 10/16/2023 amLODIPine (Norvasc) 10 mg tablet Take 5 mg by mouth if needed. Takes when BP is elevated Active omeprazole (PriLOSEC) [address] capsule Take 40 mg by mouth before breakfast. 04/12/20 Active rosuvastatin (Crestor) 20 mg tabletIndications: Mixed [...] of 19 k on labs drawn at [facility] - recheck Pneumonia of left lower [...] that he may benefit from seeing a spinner hand for DM, adrenal mass Abnormal nuclear stress test 07/15/202310/2023 Overview (08/18/2023): Last Assessment & Plan: Nuclear stress test 07/08 - perfusion defect in LAD distribution. Asymptomatic. Instructed to start using ASA. Patient scheduled for [facility] on 07/29/23 No prior hx of [...] (07/10/2023 5:18 PM EST): Recently admitted to [facility] for near syncope, bradycardia, abnormal stress [...] 11:07 AM EST): F/U with Dr San Social History Tobacco Use Types Packs/Day Years [...] 11/22/2024 3:58 PM EDT Plan of Treatment Not on file Insurance MEDICARE [facility] Care Teams Transportation Consultant Relationship Specialty Start Date End Date Tomeka Rosado MD [address] [place] [address] PCP - General Nurse Practitioner 11/22/24
[2024-11-28 15:17] LABS: Basophils Percent Auto 0.2 % (0.2-2.0); Eosinophils Absolute Auto 0.1 10^3/uL (0.0-0.7); Eosinophils Percent Auto 0.9 % (0.9-7.0); Hemoglobin 14.5 g/dL (14.0-18.0); Immature Granulocytes Abs Auto 0.03 10^3/uL (0.00-0.03); Immature Granulocytes Pct Auto 0.3 % (0.0-0.5); Lymphocytes Absolute Auto 1.3 10^3/uL (1.2-3.8); Lymphocytes Percent Auto 13.3 % (20.5-60.0); Mean Corpuscular Hemoglobin 29.1 pg (25.9-34.0); Mean Corpuscular Volume 88.4 fL (80.0-94.0); Mean Platelet Volume 10.1 fL (9.5-13.5); Monocytes Absolute Auto 0.7 10^3/uL (0.3-0.8); Monocytes Percent Auto 6.9 % (1.7-12.0); Neutrophils Absolute Auto 7.9 10^3/uL (1.4-6.5); Neutrophils Percent Auto 78.4 % (43.0-75.0); Platelet Count 392 10^3/uL (150-450); Red Blood Count 4.98 10^6/uL (4.70-6.10); Red Cell Distribution Width 16.2 % (11.0-15.0); White Blood Count 10.1 10^3/uL (4.0-11.0)
[2024-11-28 15:19] LABS: Bilirubin Urine NEGATIVE (NEGATIVE); Blood Urine NEGATIVE (NEGATIVE); Clarity Urine CLEAR (CLEAR); Color Urine LT. YELLOW (YELLOW); Glucose Urine UA >=1000 mg/dL (NEGATIVE); Ketones Urine NEGATIVE (NEGATIVE); Leukocyte Esterase Urine NEGATIVE (NEGATIVE); Nitrite Urine NEGATIVE (NEGATIVE); Protein Urine NEGATIVE (NEG/TRACE); Urobilinogen Urine 0.2 EU/dL (0.2-1.0)
--- NOTE | 2024-11-28 15:23 | XR_ITS ---
The [address] [address] Patient Name: YUSEF MELGAR MRN: [id number] date: 1950 Sex: M Assigned Patient Location: LAB Current Patient Location: LAB Accession/Order Number: [id number] Exam Date: 11/28/2024 16:16 Report Date: 11/28/2024 16:17 At the request of: AD STRONG NP Procedure: XR abdomen 1V XR abdomen 1V 11/28/2024 3:23 PM SIGNS AND SYMPTOMS: ^LEFT LOWER QUADRANT PAIN PROTOCOL: Frontal radiographs of the abdomen and pelvis COMPARISON: 06/03/2021 FINDINGS: There is a nonobstructive bowel gas pattern. There is a moderate amount stool throughout colon. No radiodense renal, ureteral, or bladder stones. Surgical clips are present in the right upper quadrant consistent with prior cholecystectomy. Degenerative changes are noted in the thoracolumbar spine. XR/XR abdomen 1V IMPRESSION: No bowel obstruction or free air. No radiodense renal, ureteral, or bladder stones. Impression dictated by: Jose A Gallardo M.D. 11/28/2024 4:17 PM Dictation Location: [place] [address] Electronically authenticated by: [id number] Y Date: 11/28/2024 16:17
[2024-11-28 15:25] LABS: Estimated Average Glucose 154 mg/dL
[2024-11-28 15:26] LABS: Creatinine Urine Random 58.76 mg/dL (20.00-300.00); Microalbum Creatinine Ratio Ur 25.5 mg/g (0.0-29.9); Microalbumin Urine Random 1.5 mg/dL (<=30.0)
[2024-11-28 15:29] LABS: Carbon Dioxide 24.5 mmol/L (21.0-32.0); Chloride 103 mmol/L (98-107); Potassium 4.1 mmol/L (3.5-5.1); Sodium 140 mmol/L (136-145); Uric Acid 3.9 mg/dL (3.5-7.2)
[2024-11-28 15:30] LABS: Alanine Aminotransferase 19 U/L (16-63); Albumin Globulin Ratio 0.9; Albumin Level 3.4 g/dL (3.4-5.0); Alkaline Phosphatase 118 U/L (46-116); Anion Gap 16.6; Aspartate Amino Transferase 13 U/L (15-37); BUN Creatinine Ratio 18.7; Bilirubin Total 0.4 mg/dL (0.2-1.0); Calcium 9.3 mg/dL (8.5-10.1); Erythrocyte Sedimentation Rate 89 mm/hr (<=20); Estimated GFR (African America >60 (>=60 mL/min/1.73m^2); Estimated GFR (Non-African Ame 52 (>=60 mL/min/1.73m^2); Glucose 218 mg/dL (74-106); Total Protein 7.4 g/dL (6.4-8.2)
[2024-11-28 15:38] LABS: Urine Microscopic Indicated NO
== END 2024-11-28 14:44 | disposition home or self-care (01) ==
PROVIDERS: PCP Nurse Practitioner; Visit Provider Nurse Practitioner
DX: K57.30 Diverticulosis of large intestine without perforation or abscess without bleeding (principal); R10.32 Left lower quadrant pain; E11.22 Type 2 diabetes mellitus with diabetic chronic kidney disease; N18.31 Chronic kidney disease, stage 3a; Z12.5 Encounter for screening for malignant neoplasm of prostate; E78.2 Mixed hyperlipidemia
CPT/HCPCS: 36415; 74018; 80053; 81003; 82043; 82570; 83036; 84550; 85025; 85652; 87086

== ENCOUNTER 2024-12-13 14:58 | Emergency (ER) | payer MEDICARE, OTHER, SELFPAY ==
--- OUTSIDE RECORDS SUMMARY | 2023-11-04 04:30 | XMS_ITS ---
Author Organization [facility] in [place] Address [address] [place] [address] Care Team Providers Care Nursery Teacher Name Role Phone Jamie HERNANDEZ, [facility] Primary Care Provider Alan East [phone] REASON FOR VISIT R/S appt/Sick Encounters Encounter Location Date Provider Diagnosis Pulmonary Medicine [address] [address] 11/04/2023 Alan Francis Plan Of Treatment No Information Progress Notes * JOSEPLeonard ORELLANAt FDOB: [birth year] (73 yo M)Acc No.[id number]:11/04/2023 Patient: Brent MORTON :1950 A ge:73 Y S ex:Male Address:[address] [place], [address] * true * Date: Generated for Printi ng/Faxing/eTransmitting on: 0 12/13/2024 03:03 PM EDT
--- OUTSIDE RECORDS SUMMARY | 2023-11-04 04:30 | XMS_ITS ---
Author Organization The [facility] in [place] Address [address] [place] [address] Care Team Providers Care Team Assembly Line Machine Operator Name Role Phone Jamie HERNANDEZ, Gallegos Primary Care Provider Alan East Unavailable [phone] Allergies Allergen (clinical drug ingredient) Drug/Non Drug Allergy documented on EMR Reaction Allergy Type Onset Date Status azithromycin Azithromycin Unknown Drug Allergy A ctive lisinopril Lisinopril cough Drug Allergy Activ e ciprofloxacin Ciprofloxacin Unknown Drug Allergy Active REASON FOR VISIT KAREEN Medications Medication SIG (Take, Route, Frequency, Duration) Notes Start Date End Date Status Losartan Potassium 100 MG Oral for 90 Days Active Jardiance 25 MG Oral for 90 Days Active Sucralfate 1 GM Oral for 90 Days Active Rosuvastatin Calcium 20 MG Oral for 90 Days Active Pantoprazole Sodium 40 MG Oral for 30 Days Active hydrALAZINE HCl 50 MG 1 tablet with food Orally BID for 90 days Active Glimepiride 4 MG Oral for 90 Days Active Furosemide 20 MG Oral for 90 Days Active Bisoprolol Fumarate 5 MG Oral for 90 Days Active Aspirin Low Dose 81 MG CHEW 1 TABLET (81 MG) IN THE MORNING Oral for 90 Days Active Allopurinol 300 MG Oral for 90 Days Active Tamsulosin HCl 0.4 MG Oral for 90 Days Active Fluticasone Propionate 50 MCG/ACT 1 spray in each nostril Nasally Once a day Active Encounters Encounter Location Date Provider Diagnosis Pulmonary Medicine [place] [address] [place] [address] 11/04/2023 Alan Francis Plan Of Treatment No Information Progress Notes * Brent CAR FDOB: [birth year] (74 yo M)Acc No.[id number]:11/04/2023 UNLOCKED PROGRESS NOTE New Patient Patient: Brent MORTON Provider: Abdirahman Francis DO :1950 A ge:73 Y S ex:Male Date:11/04/2023 Address:[address] [place] [address], [facility], [id number] Pcp:Shaikh Jamie MD Subjective: * Chief Complaints: * 1 . KAREEN. * HPI: G eneral: Patient is referred from for KAREEN. E pworth Sleepiness Scale: [place] Sleepiness Scale C jhoan of dozing while [...] Electronic signature of Katalina Francis DO on 12/13/2024 at 12:32 PM EDT Sign off status: Pending Visit Status: R /S (Rescheduled) * Provider: Abdirahman Francis DO Date: 0 11/04/2023 Generated for Scarlet dobson/Gregorio/Cristin on: 0 12/13/2024 12:32 PM EDT History and Physical Notes * HPI [...] (40cm)?: No GENDER: Male?: No Total Score: [place] Sleepiness Scale [place] Sleepiness Scal e Chance of dozing while [...]
--- OUTSIDE RECORDS SUMMARY | 2024-01-13 07:00 | XMS_ITS ---
Author Organization [facility] in [place] Address [address] [place] [address] Care Team Providers Care Sample Distributor Name Role Phone Jamie HERNANDEZ, Primary Care Provider Alan East Unavailable [phone] Allergies Allergen (clinical drug ingredient) Drug/Non Drug Allergy documented on EMR Reaction Allergy Type Onset Date Status azithromycin Azithromycin Unknown Drug Allergy A ctive lisinopril Lisinopril cough Drug Allergy Activ e ciprofloxacin Ciprofloxacin Unknown Drug Allergy Active REASON FOR VISIT KAREEN Medications Medication SIG (Take, Route, Frequency, Duration) Notes Start Date End Date Status Losartan Potassium 100 MG Oral for 90 Days Active Rosuvastatin Calcium 20 MG Oral for 90 Days Active Pantoprazole Sodium 40 MG Oral for 30 Days Active Tamsulosin HCl 0.4 MG Oral for 90 Days Active Sucralfate 1 GM Oral for 90 Days Active Furosemide 20 MG Oral for 90 Days Active Fluticasone Propionate 50 MCG/ACT 1 spray in each nostril Nasally Once a day Active hydrALAZINE HCl 50 MG 1 tablet with food Orally BID for 90 days Active Glimepiride 4 MG Oral for 90 Days Active Jardiance 25 MG Oral for 90 Days Active Bisoprolol Fumarate 5 MG Oral for 90 Days Active Aspirin Low Dose 81 MG CHEW 1 TABLET (81 MG) IN THE MORNING Oral for 90 Days Active Allopurinol 300 MG Oral for 90 Days Active Social History Tobacco Use: Social History Observation Description Date Details (start date - stop date) Former Smoker NA - NA Tobacco Control (Standard) Question Answer Notes Tobacco use: Former smoker How long has it been since y ou last smoked? Greater than 10 years Additional Findings: Tobacco non-user Ex -moderate cigarette smoker (10-19/day) Problems Problem Type SNOMED Code ICD Code Onset Dates Problem Status W/U Status Risk Notes Problem Ex-tobacco user (finding) (702391832) History of tobacco abuse (Z87.891) Active confirmed Problem 853539958 Obesity, unspecified (E66.9) Active confirmed Problem Hypersomnia (98648636) Hypersomnia (G47.10) Active confirmed Vital Signs Weight 233.8 lbs 01/13/2024 Height 69 in 01/13/2024 Blood pressure systolic 122 mm Hg 01/13/20 24 Blood pressure diastolic 74 mm Hg 024 Temperature 96.8 degrees Fahrenheit 01/13/20 24 Heart Rate 73 /min 01/13/2024 Respiratory Rate 18 /min 01/13/2024 BMI 34.52 kg/m2 01/13/2024 Oximetry 95 % 01/13/2024 RA Activity/Resting Encounters Encounter Location Date Provider Diagnosis Pulmonary Medicine [place] [address] [place] [address] 01/13/2024 Alan Francis Hypersomnia G47.10 ; Obesity, unspecified E66.9 and History of tobacco abuse Z87.891 Assessments Encounter Date Diagnosis (ICD Code) Assessment Notes Treatment Notes Treatment Clinical Notes Section Notes 01/13/2024 Hypersomnia (ICD-10 - G47.10) The main question is this this patient have obstructive sleep apnea. Anson is only 2, though STOP-BANG is 3, suggesting moderate risk for sleep apnea. He does have some mild hypersomnia. He did have nocturnal awakenings, but that seems rectified by the addition of Flomax. We discussed PSG. I explained to him the standard therapy for treatment of sleep apnea is CPAP. The patient voiced that he would not wear the CPAP. He states that it would feel to constrict on his face and he is not willing to try it. He asked about the Inspire device; explained that that is typically reserved for people who fail CPAP therapy. Additionally, there are additional criteria depending on the severity of sleep apnea, weight, etc. U P3 would be an alternative, though I do not recommend this. And for mild cases, oral appliances can be considered, though these are not covered by insurance and can be quite expensive. The patient states he really does not feel that he has sleep apnea. He voiced he really does not want to pursue testing. I explained that I would not insist on testing if he is not going to attempt to use the standard treatment. The patient may follow-up as needed. If he reconsiders the use of PAP therapy, he can return as needed. 01/13/2024 Obesity, unspecified (ICD-10 - E66.9) Patient's weight is inducing a restrictive pulmonary physiology. Weight loss indicated: Decrease calories, increase activity. 01/13/2024 History of tobacco abuse (ICD-10 - Z87.891) Quit smoking in 1973. Does not meet current LDCT screening criteria. Plan Of Treatment Treatment Notes Assessment Notes Hypersomnia The main question is this this patient have obstructive sleep apnea. Anson is only 2, though STOP-BANG is 3, suggesting moderate risk for sleep apnea. He does have some mild hypersomnia. He did have nocturnal awakenings, but that seems rectified by the addition of Flomax. We discussed PSG. I explained to him the standard therapy for treatment of sleep apnea is CPAP. The patient voiced that he would not wear the CPAP. He states that it would feel to constrict on his face and he is not willing to try it. He asked about the Inspire device; explained that that is typically reserved for people who fail CPAP therapy. Additionally, there are additional criteria depending on the severity of sleep apnea, weight, etc. U P3 would be an alternative, though I do not recommend this. And for mild cases, oral appliances can be considered, though these are not covered by insurance and can be quite expensive. The patient states he really does not feel that he has sleep apnea. He voiced he really does not want to pursue testing. I explained that I would not insist on testing if he is not going to attempt to use the standard treatment. The patient may follow-up as needed. If he reconsiders the use of PAP therapy, he can return as needed. Obesity, unspecified Patient's weight is inducing a restrictive pulmonary physiology. Weight loss indicated: Decrease calories, increase activity. History of tobacco abuse Quit smoking in 1973. Does not meet current LDCT screening criteria. Next Appt Details Follow Up: PRN, Reason: Progress Notes * Brent CAR FDOB: [birth year] (73 yo M)Acc No.[id number]:01/13/2024 New Patient Patient: Brent MORTON Provider: Abdirahman Francis DO :1950 A ge:73 Y S ex:Male Date:01/13/2024 Address:[address] [place] [address], [place], [id number] Pcp:Shaikh Jamie MD Check In:10:56 AM ESTCheck O ut:11:29 AM EST Subjective: * Chief Complaints: * O SA * HPI: G eneral: NEW PATIENT 73yo male presents to the office with hypersomnia. He follows with [facility] cardiology. Cardiology was concerned the patient may have underlying sleep apnea and the patient was therefore referred here for further evaluation. Patient states he had a polysomnogram many years ago which was negative for sleep apnea. Currently, he states he was having nocturnal awakenings 3-4 times a night to urinate. He is also been told that he snores by his , though no witnessed apneas reported. He denies waking up snoring or gasping. He does have some mild daytime hypersomnia. He states the nocturia mostly resolved after starting Flomax-she only gets up about once a night now. He denies any morning headaches. MA Intake Comments:. Patient is referred from for KAREEN. Patient reports having a PSG >10 years ago. Patient complains of hypersomnia, fatigue & frequent urination.Patient states he does not believe he has KAREEN and reports his symptoms to be a side effect of medication.. S TOP-BANG Sleep Apnea Questionnaire: STOP D [...] high blood PRESSURE? N o BANG B NJ more than 35kg/m2? N o A GE over 50 years old? Y es N HAFSA circumference > 16 inches (40cm)??Yes G TONY: Male? Y es Total Score: Y es 3-4 Intermediate risk of KAREEN. E pworth Sleepiness Scale: Anson Sleepiness Scale C jhoan of dozing while sitting and reading:?1 - Slight Chance C jhoan of dozing while watching TV: 0 - Never C jhoan of dozing while sitting in a public place: 0 - Never C jhoan of dozing as a passenger in a car for an hour without a break: 0 - Never C jhoan of dozing while lying down in the afternoon to rest: 1 - Slight Chance C jhoan of dozing while sitting and talking to someone: 0 - Never C jhoan of dozing while sitting quietly after lunch: 0 - Never C jhoan of dozing in a stopped car for a few minutes in traffic: 0 - Never T OTAL SCORE: 2 * ROS: G eneral/Constitutional: Fever or sweats d enies. C hange of appetite d enies. C hills d enies. W eight Change d enies. H EENT: Dry mouth d enies. S ore throat d enies. O ral Ulcers d enies. P ost Nasal Drip D enies. C ongestion D enies. H oarseness?Denies. C ardiovascular: Tachycardia d enies. E javier D enies. C hest pain d enies. P alpitations d enies. R espiratory: Chest tightness d enies. P leurisy D enies. D yspnea d enies. C ough d enies. H emoptysis d enies. W heezing d enies.? G astrointestinal: Acid Reflux/GERD/Heartburn d enies. D ysphagia d enies. M usculoskeletal: Arthralgias/joint pain D enies. S kin: Easy bruising d enies. R stone d enies. ? N eurologic: Seizures d enies. T remor d enies. H ematology: Abnormal Bleeding d enies. P sychiatric: Anxiety d enies. 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 S isnanda(s): breast cancer, diagnosed with Diabetes mellitus without mention of complication, type II or unspecified type, not stated as uncontrolled, Unspecified heart disease. F ather: diagnosed with Diabetes mellitus without mention of complication, type II or unspecified type, not stated as uncontrolled, Unspecified heart disease, Unspecified polyarthropathy or polyarthritis, pelvic region and thigh. M other: diagnosed with Unspecified heart disease, Unspecified polyarthropathy or polyarthritis, pelvic region and thigh. * Social History: T obacco Use: T obacco Control (Standard) T obacco use: F ormer smoker H ow long has it been since you last smoked??Greater than 10 years A dditional Findings: Tobacco non-user E x-moderate cigarette smoker (10-19/day) Electronic Cigarette use C urrent user N o LM: Additional Tobacco Questions N umber of Years Pt Smoked: 1 4 N umber of Packs per Day: 1 When did you stop smokin. 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 D rugs/Alcohol: D rugs H ave you used drugs other than those for medical reasons in the past 12 months? N o D oes the Patient have a History of Drug Abuse in the Past? N o Caffeine I ntake: n one Do you drink alcohol?: No. Do you smoke marijuana?: Denies. * Medications: T akingAllopurinol 300 MG Tablet Oral Aspirin Low Dose(Aspirin) 81 MG Tablet Chewable CHEW 1 TABLET (81 MG) IN THE MORNING Oral Bisoprolol Fumarate 5 MG Tablet Oral Fluticasone Propionate 50 MCG/ACT Suspension 1 spray in each nostril Nasally Once a day Furosemide 20 MG Tablet Oral Glimepiride 4 MG Tablet Oral hydrALAZINE HCl 50 MG Tablet 1 tablet with food Orally BID Jardiance(Empagliflozin) 25 MG Tablet Oral Losartan Potassium 100 MG Tablet Oral Pantoprazole Sodium 40 MG Tablet Delayed Release Oral Rosuvastatin Calcium 20 MG Tablet Oral Sucralfate 1 GM Tablet Oral Tamsulosin HCl 0.4 MG Capsule Oral Medication List reviewed and reconciled with the patientTaking Allopurinol 300 MG Tablet Oral Taking Aspirin Low Dose(Aspirin) 81 MG Tablet Chewable CHEW 1 TABLET (81 MG) IN THE MORNING Oral Taking Bisoprolol Fumarate 5 MG Tablet Oral Taking Fluticasone Propionate 50 MCG/ACT Suspension 1 spray in each nostril Nasally Once a day Taking Furosemide 20 MG Tablet Oral Taking Glimepiride 4 MG Tablet Oral Taking hydrALAZINE HCl 50 MG Tablet 1 tablet with food Orally BID Taking Jardiance(Empagliflozin) 25 MG Tablet Oral Taking Losartan Potassium 100 MG Tablet Oral Taking Pantoprazole Sodium 40 MG Tablet Delayed Release Oral Taking Rosuvastatin Calcium 20 MG Tablet Oral Taking Sucralfate 1 GM Tablet Oral Taking Tamsulosin HCl 0.4 MG Capsule Oral Medication List reviewed and reconciled with the patient * Allergies: L isinopril: cough - Side EffectsCiprofloxacin: AllergyAzithromycin: Allergyno[Allergies Verified] Objective: * Vitals: W t:233.8lbs, Ht:69in, BP:sittin/74mm Hg, Temp:Forehead:96.8F, HR: 68 /min,73/min, RR:18/min, BMI:34.52Index, Oxygen sat %: Room Air:90 %,Room Air:95%, Ht-cm: 175.26 cm, Wt-k.05 kg. RA Activity/Resting. * Examination: E xam: GENERAL APPEARANCE: A ppears stated age. Skin N ormal. Mouth P ink and moist. Oropharynx M allampati Class III. Trachea M idline. Chest N ormal. Respiratory Normal M ovements, E ffort N ormal. Auscultation N ormal breath sounds. Cardiac R egular rate and rhythm. Gastrointestinal N ormal. Vascular N o edema. Musculoskeletal N ormal posture. Neurological F ocal, intact. Psychiatric A lert and oriented x3. Mentation/Cognition N ormal. Assessment: * Assessment: 1. H ypersomnia - G47.10 (Primary) 2 . O besity, unspecified - E66.9 3 . H istory of tobacco abuse - Z87.891 Plan: * Treatment: 2. O besity, unspecified Notes: Patient's weight is inducing a restrictive pulmonary physiology. Weight loss indicated: Decrease calories, increase activity. 3. H istory of tobacco abuse Notes: Quit smoking in 1973. Does not meet current LDCT screening criteria. * Procedure Codes: * Preventive Medicine: COVID Vaccination: H as patient had COVID Vaccination? COVID Vaccination Y es 04/28/2023 Immunization Status: P neumovacc p neumovacc 23-02/24/2023. I nfluenza 1 . Z ostivax 1 07/25/2015. B oostrix 0 10/27/2018. Screenings/Counseling: F ALL RISK SCREENING Fall Risk Assessment: N o falls in the past year Are you afraid of falling? N o B NJ ACTION PLAN Above Normal BMI Follow-up D ietary management education, guidance, and counseling * Follow Up: P RN * * Sign off status: Completed Visit Status: C HK (Check Out) true * Provider: Abdirahman Francis DO Date: 01/13/2024 Generated for Scarlet dobson/Gregorio/Howarditting on: 12/13/2024 07:06 AM EDT History and Physical Notes * HPI (History of Present Illness) Category Sub-Category Detail Notes Category Not es General Patient is referred from for KAREEN. Patient reports having a PSG >10 years ago. Patient complains of hypersomnia, fatigue & frequent urination.Patient states he does not believe he has KAREEN and reports his symptoms to be a side effect of medication. STOP-BANG Sleep Apnea Questionnaire STOP Do you [...] 35kg/m2?: No AGE over 50 years old?: Yes NECK circumference > 16 inches (40cm)?: Yes GENDER: Male?: Yes Total Score: Yes 3-4 Intermediate risk of KAREEN Anson Sleepiness Scale Anson Sleepiness Scal e Chance of dozing while sitting and reading:: 1 - Slight Chance Chance of dozing while watching TV:: 0 - Never Chance of dozing while sitting in a publ ic place:: 0 - Never Chance of dozing as a passen jenna in a car for an hour without a break:: 0 - Never Chance of dozing while lying down in the afternoon to rest:: 1 - Slight Chance Chance of dozing while sitting and talki ng to someone:: 0 - Never Chance of dozing while sitting quietly a fter lunch:: 0 - Never Chance of dozing in a stopped car for a few minutes in traffic:: 0 - Never TOTAL SCORE:: 2 Examination Category Sub-Category Detail Notes Category Not es Exam GENERAL APPEARANCE: Appears stated age Skin Normal Mouth [place] and moist Trachea Midline Chest Normal Respiratory Normal Movements, Ef fort Normal Auscultation Normal breath sounds Cardiac Regular rate and rhy thm Gastrointestinal Normal Vascular No edema Musculoskeletal Normal posture Neurological Focal, intact Psychiatric Alert and oriented x 3 Mentation/Cognition Normal Oropharynx Mallampati Class III
--- OUTSIDE RECORDS SUMMARY | 2024-11-30 09:30 | XMS_ITS | Encounter Summary ---
Author Organization [facility] Address [address] [place] [address] Care Team Providers Care Eyelet Row Marker Name Role Phone Peggy Gatica NP Unavailable [phone] Gerald Low MD Primary Care Provider [phone] Reason for Referral * Clinic-Administered Medication (Routine) - Closed Specialty Diagnoses / Procedures Referred By William kingsley Referred To Contact Orthopaedic Surgery Diagnoses Left rotator cuff tear arthropathy Procedures L Inj/Asp: L glenohumeral Fahad Sears PA [address] [facility] [address] [place] [address] Phone: tel: fax: Referral ID Status Reason Start Date Expiration Date Visits Re quested Visits Authorized [id number] Closed 11/30/2024 05/29/2025 1 1 Reason for Visit * Reason Comments Pain Encounter Details Date Type Department Care Team (Late st Contact Info) Description 11/30/2024 9:30 AM EDT Office Visit [facility] [address] [facility] [phone] Fahad Sears PA [address] [facility] [address] [place] [address] Acute pain of left shoulder (Primary Dx); Left rotator cuff tear arthropathy; Arthritis of left shoulder Social History Tobacco Use Types Packs/Day Years Used Date Smoking Tobacco: Former Cigarettes 1 15 1 969 - 1984 Passive Smoke Exposure: Never Smokeless Tobacco: Never Alcohol Use Standard Drinks/Week Comments Yes 0 (1 standard drink = 0.6 oz pur e alcohol) OCCASSIONAL B1300 Health Literacy Answer Date Recor ded How often do you need to hav e someone help you when you read instructions, pamphlets, or other written material from your doctor or pharmacy? Rarely 07/06/2024 Humiliation, Afraid, Rape, and Kick questionnair e Answer Date Recorded Within the last year, have y ou been afraid of your partner or ex-partner? No 02/18/2023 Within the last year, have y ou been humiliated or emotionally abused in other ways by your partner or ex-partner? No Within the last year, have y ou been kicked, hit, slapped, or otherwise physically hurt by your partner or ex-partner? No 02/18/2023 Within the last year, have y ou been raped or forced to have any kind of sexual activity by your partner or ex-partner? No 02/18/2023 Social Connection and Isolat ion Panel [NHANES] Answer Date Recorded In a typical week, how many times do you talk on the phone with family, friends, or neighbors? More than three times a week 07/06/2024 How often do you get togethe r with friends or relatives? Once a week 07/06/2024 How often do you attend [facility] or congregational services? Patient declined 07/06/2024 Do you belong to any clubs o r organizations such as christian groups, unions, fraternal or athletic groups, or school groups? No 07/06/2024 How often do you attend meet ings of the clubs or organizations you belong to? Never 07/06/2024 Are you , , di vorced, , never , or living with a partner? 07/06/2024 AUDIT-C Answer Date Recorded Q1: How often do you have a drink containing alc ohol? Monthly or less 07/06/2024 Q2: How many drinks containi ng alcohol do you have on a typical day when you are drinking? 1 or 2 07/06/2024 Q3: How often do you have si x or more drinks on one occasion? Never 07/06/2024 Overall Financial Resource Strain (CARDIA) Answe r Date Recorded How hard is it for you to pa y for the very basics like food, housing, medical care, and heating? Not hard at all 07/06/2024 PHQ-2 Answer Date Recorded Patient Health Questionnaire-2 Score 0 01/11/2024 [facility] Occupational Stress Questionnaire Answer Date Recorded Do you feel stress - tense, restless, nervous, or anxious, or unable to sleep at night because your mind is troubled all the time - these days? Only a little 07/06/2024 Exercise Vital Sign Answer Date Recorde d On average, how many days pe r week do you engage in moderate to strenuous exercise (like a brisk walk)? 2 days 07/06/2024 On average, how many minutes do you engage in exercise at this level? 30 min 07/06/2024 Hunger Vital Sign Answer Date Recorded Within the past 12 months, y ou worried that your food would run out before you got the money to buy more. Never true 07/06/19 25 Within the past 12 months, t he food you bought just didn't last and you didn't have money to get more. Never true 07/06/2024 PRAPARE - Transportation Answer Date Re corded In the past 12 months, has l ack of transportation kept you from medical appointments or from getting medications? No 06/16 In the past 12 months, has l ack of transportation kept you from meetings, work, or from getting things needed for daily living? No 07/06/2024 Housing Stability Vital Sign Answer Saurav e Recorded In the last 12 months, was t here a time when you were not able to pay the mortgage or rent on time? No 02/18/2023 In the last 12 months, how many places have you lived? 1 02/18/2023 In the last 12 months, was t here a time when you did not have a steady place to sleep or slept in a nursing home (including now)? No 02/18/2023 Housing Stability Vital Sign Answer Saurav e Recorded In the last 12 months, was t here a time when you were not able to pay the mortgage or rent on time? No 07/06/2024 In the past 12 months, how m any times have you moved where you were living? 0 07/06/2024 At any time in the past 12 m [facility], were you homeless or living in a nursing home (including now)? No 07/06/2024 Sex and Gender Information Value Date Recorded Sex Assigned at Not on file Legal Sex Male 7:35 PM EDT Gender Identity Male 08/27/2022 7:35 PM EDT Sexual Orientation Not on file documented as of this encounter Progress Notes * GEMA Mccartney - 11/30/2024 9:30 AM EDTAssociated Order(s): L Inj/Asp: L glenohumeral Post-Procedure Diagnose(s): Left rotator cuff tear arthropathy Images from the original note were not included. 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 Respiratory: No acute distress Cardiovascular: Radial pulse is 2+. Musculoskeletal: Healing abrasions from recent yard work are noted on the forearm. Well-healed arthroscopic portals and minimal prominence of the AC joint are observed. Near full range of motion withinternal rotation to L2, experiencing pain only at the end range of motion and slight crepitus with certain movements. Strength is rated as 5 out of 5 in the deltoid, 4 out of 5 in the supraspinatus,5 out of 5 in internal rotation, and 4+ out of 5 in external rotation. No significant pain during Neer's and Shea tests. Gentle internal and external rotation elicit palpable crepitus and mild soreness. Compartments are soft. Skin: Warm and dry, no rash. Neurological: Deltoid strength is 5 out of 5 and external nerve is intact with sensation on exam. Shoulder Musculoskeletal Exam No orders of the defined types were placed in this encounter. L Inj/Asp: L glenohumeral on 11/30/2024 10:18 AM Indications: pain Details: 22 G needle, ultrasound-guided posterior approach Medications: 2 mL bupivacaine PF 0.5 %; 40 mg methylPREDNISolone acetate 40 MG/ML Outcome: tolerated well, no immediate complications The shoulder was prepped with isopropyl alcohol. Allowed time to fully dry. Under ultrasound guidance the glenohumeral joint was identified. A plain was established to avoid any neurovascular structures or lung, a 21 G needle was placed into the joint under ultrasound guidance and image captured topatients chart demonstrating proper placement in glenohumeral joint. I then injected 40 mg depomedrol and 2 ml of 0.5% bupivacaine Pt tolerated this well and neurovascular intact s/p injection. . ( Codes 92862) Procedure, treatment alternatives, risks and benefits explained, specific risks discussed. Consent was given by the patient. Patient was prepped and draped in the usual sterile fashion. Results No diagnosis found. Assessment & Plan Left shoulder arthritis He has acceptable function and motion. He notes excellent relief with past glenohumeral injection. Treatment plan: He is agreeable to a cortisone injection today. Clinical decision making: The risks and benefits of an intra-articular steroid injection were discussed. Rotator cuff arthropathy He has acceptable function and motion. He notes excellent relief with past glenohumeral injection. Treatment plan: He is agreeable to a cortisone injection today. Clinical decision making: The risks and benefits of an intra-articular steroid injection were discussed. Follow-up: The patient will follow up in 4 months or sooner if symptoms persist or worsen. Questions answered in laymen terms at the bedside. The diagnosis, home exercise plan and any ongoing restrictions/ recommendations reviewed. If unable to be reached in office, I recommend evaluation at nearest Emergency Room if any symptoms worsened or new symptoms develop for requiring urgent evaluation. Visit was preformed using [employer]-high[employer] patrol pilot speech recognition. documented in this encounter Plan of Treatment Upcoming Encounters Date Type Department Care Team (Late st Contact Info) Description 01/09/2025 8:40 AM EDT Office Visit [facility] [address] [place] [address] Tomeka Rosado, PARACHUTE SUPERVISOR [address] [place] [address] 03/29/2025 9:30 AM EDT Office Visit [facility] [address] [place] [phone] Fahad Sears PA [address] [place], [place] [phone] documented as of this encounter Procedures Procedure Name Priority Date/Time Associated Diagnosis Comments CA ARTHROCENTESIS ASPIR&/INJ MAJOR JT/BURSA W/US Routine 11/30/2024 10:18 AM EDT Left rotator cuff tear arthropathy documented in this encounter Results * CA ARTHROCENTESIS ASPIR&/INJ MAJOR JT/BURSA W/US (11/30/2024 10:18 AM EDT) Narrative Fahad Sears PA - 11/30/2024 10:18 AM EDT GEMA Mccartney 11/30/2024 10:44 AM L Inj/Asp: L glenohumeral on 11/30/2024 10:18 AM Indications: pain Details: 22 G needle, ultrasound-guided posterior approach Medications: 2 mL bupivacaine PF 0.5 %; 40 mg methylPREDNISolone acetate 40 MG/ML Outcome: tolerated well, no immediate complications The shoulder was prepped with isopropyl alcohol. Allowed time to fully dry. Under ultrasound guidance the glenohumeral joint was identified. A plain was established to avoid any neurovascular structures or lung, a 21 G needle was placed into the joint under ultrasound guidance and image captured to patients chart demonstrating proper placement in glenohumeral joint. I then injected 40 mg depomedrol and 2 ml of 0.5% bupivacaine Pt tolerated this well and neurovascular intact s/p injection. . ( Codes 93491) Procedure, treatment alternatives, risks and benefits explained, specific risks discussed. Consent was given by the patient. Patient was prepped and draped in the usual sterile fashion. us Fahad RIBEIRO IN CLINIC/BEDSIDE ORDERABLES Final Result documented in this encounter Visit Diagnoses Diagnosis Acute pain of left shoulder- Primary Left rotator cuff tear arthropathy Arthritis of left shoulder documented in this encounter Administered Medications Inactive Administered Medications - up to 3 most recent administrations Medication Order MAR Action Action Date Dose Rate Site bupivacaine PF (Marcaine) 0.5 % injection 2 mL 2 mL, Injection, Once PRN Procedure, Starting on Thu11/30/24 at 1018, For 1 doseIndications:Left rotator cuff tear arthropathy Given 11/30/2024 10:18 AM EDT 2 mL methylPREDNISolone acetate (DEPO-Medrol) injection 40 mg 40 mg, Intra-articular, Once PRN Procedure, Starting on Thu11/30/24 at 1018, For 1 doseIndications:Left rotator cuff tear arthropathy Given 11/30/2024 10:18 AM EDT 40 mg documented in this encounter Care Teams Eyelet Row Marker Relationship Specialty Start Date End Date Gerald Low MD [address] [place] [address] PCP - General Family Medicine 04/13/24 Peggy Gatica NP Nurse Practitioner Family Medicine 04/12/24 documented as of this encounter
--- OUTSIDE RECORDS SUMMARY | 2024-12-08 07:50 | XMS_ITS | Encounter Summary ---
Author Organization [facility] Address [address] [place] [address] Care Team Providers Care Bullet Swaging Machine Adjuster Name Role Phone Shaikh MARY Ayala Primary Care Provider [phone] Encounter Details Date Type Department Care Team (Latest Contact Info) Description 12/08/2024 7:50 AM EDT - 12/08/2024 11:59 PM EDT Hospital Encounter [facility] [address] [place] [id number] Bilateral renal cysts; Adrenal adenoma, left Discharge Disposition: Home or Self Care Social History Tobacco Use Types Packs/Day Years Used Date Smoking Tobacco: Never Smokeless Tobacco: Never Alcohol Use Standard Drinks/Week Comments Not Currently 0 (1 standard drink = 0.6 oz pur e alcohol) Sex and Gender Information Value Date Recorded Sex Assigned at Not on file Legal Sex Male 2:44 PM EST Gender Identity Not on file Sexual Orientation Not on file documented as of this encounter Medications at Time of Discharge tamsulosin (FLOMAX) 0.4 MG capsule TAKE 1 CAPSULE DAILY 90 capsule 3 08/04/2024 pantoprazole (PROTONIX) 40 MG tablet Take 1 tablet by mouth 2 times daily 10/07/2023 sucralfate (CARAFATE) 1 GM tablet Take 1 tablet by mouth 4 times daily 10/07/2023 bisoprolol (ZEBETA) 5 MG tablet Take 1 tablet by mouth in the morning and at bedtime allopurinol (ZYLOPRIM) 300 MG tablet Take 1 tablet by mouth daily 09/17/2020 fluticasone (FLONASE) 50 MCG/ACT nasal spray 2 sprays daily 09/17/2020 furosemide (LASIX) 20 MG tablet Take 1 tablet by mouth daily 10/07/2020 glimepiride (AMARYL) 4 MG tablet Take 1 tablet by mouth every morning (before breakfast) 10/07/2020 FREESTYLE LITE strip USE DIRECTED ONCE TEST 06/22/2023 losartan (COZAAR) 100 MG tablet Take 1 tablet by mouth daily 09/17/2020 documented as of this encounter Plan of Treatment Upcoming Encounters Date Type Department Care Team (Late st Contact Info) Description 12/20/2024 10:15 AM EDT Office Visit [facility] Specialty Providers on Main [address] [address] Ky Justice, PACheyenneC [address] [place] [address] Dr Velazquez [address] [place] [id number] 1 year f/u with MRI documented as of this encounter Procedures Procedure Name Priority Date/Time Associated Diagnosis Comments BUN & CREATININE Routine 12/08/2024 7:50 AM EDT Bilateral renal cysts Adrenal adenoma, left documented in this encounter Results * (ABNORMAL) BUN & Creatinine (12/08/2024 7:50 AM EDT) BUN 24(H) 9 - 20 mg/dL 12/08/2024 7:50 AM EDT [facility] Creatinine 1.07 0.66 - 1.25 mg/dL 12/08/2024 7:50 AM EDT [facility] Est, Glom Filt Rate 72 >60 mL/min/1.7 3m2 12/08/2024 7:50 AM EDT [facility] Comment: GFR calculated using CKD-EPI (2020) formula. Stage 1 Kidney damage (e.g., protein in the urine) with normal GFR >=90 Stage 2 Kidney damage with mild decrease in GFR 60-89 Stage 3a Moderate decrease in GFR 45-59 Stage 3b Moderate decrease in GFR 30-44 Stage 4 Severe reduction in GFR 15-29 Stage 5 Kidney failure <15 Blood Plasma 12/08/2024 7:50 AM EDT 12/08/2024 10:38 AM EDT Ky Justice PA-C CHEMISTRY ORDERABLES Final Result Performing Organization Address City/State/[facility] [place] [address] documented in this encounter Visit Diagnoses Diagnosis 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 Adrenal adenoma, left documented in this encounter Care Teams Bullet Swaging Machine Adjuster Relationship Specialty Start Date End Date Shaikh Ayala MD PCP - General 07/31/23 documented as of this encounter
[2024-12-13] VITALS (20 sets, daily range): BP systolic 149–169; BP diastolic 75–109; PULSE 46–76; O2SAT 94–98; BMI 32.3
--- OUTSIDE RECORDS SUMMARY | 2024-12-13 09:11 | XMS_ITS | Encounter Summary ---
Author Organization [facility] Address [address] [place] [address] Care Team Providers Care Auto Parts Manager Name Role Phone Shaikh MARY Ayala Primary Care Provider [phone] Reason for Referral * Imaging (Routine) - Authorized Specialty Diagnoses / Procedures Referred By Lisaac t Referred To Contact Radiology Diagnoses Bilateral renal cysts Adrenal adenoma, left Procedures MRI ABDOMEN W WO CONTRAST Ky Justice PA-C [address] [facility] [address] [place] [address] Phone: tel: fax: Referral ID Status Reason Start Date Expiration Date V isits Requested Visits Authorized [id number] Authorized 12/13/2024 12/13/2025 1 1 Reason for Visit * Imaging (Routine) - Authorized Specialty Diagnoses / Procedures Referred By William kingsley Referred To Contact Radiology Diagnoses Bilateral renal cysts Adrenal adenoma, left Procedures MRI ABDOMEN W WO CONTRAST Ky Justice PA-C [address] [place] [address] Phone: tel: fax: Referral ID Status Reason Start Date Expiration Date V isits Requested Visits Authorized [id number] Authorized 12/13/2024 12/13/2025 1 1 Encounter Details Date Type Department Care Team (Latest Contact Info) Description 12/13/2024 9:11 AM EDT Hospital Encounter [facility] [address] [place] [address] Ky Justice PA-C [address] [place] [address] Dr [address] [place] [address] Bilateral renal cysts; Adrenal adenoma, left Social History Tobacco Use Types Packs/Day Years [...] on file documented as of this encounter Plan of Treatment Upcoming Encounters Date Type Department Care Team (Late st Contact Info) Description 12/20/2024 10:15 AM EDT Office Visit [facility] Specialty Providers on Main [address] [address] Ky Justice, SHERMAN [address] [place] [address] Dr [address] [place], [place] [id number] 1 year f/u with MRI Pending Results Name Type Priority Associated Diagnoses Date /Time MRI ABDOMEN W WO CONTRAST Imaging Routine Bilateral renal cysts Adrenal adenoma, left 12/13/2024 10:30 AM EDT Scheduled Orders Name Type Priority Associated Diagnoses Orde r Schedule MRI ABDOMEN W WO CONTRAST Imaging Routine Bilateral renal cysts Adrenal adenoma, left 1 Occurrences starting 12/13/2024 until 12/13/2024 documented as of this encounter Visit Diagnoses Diagnosis 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 Adrenal adenoma, left documented in this encounter Administered Medications Inactive Administered Medications - up to 3 most recent administrations Medication Order MAR Action Action Date Dose Rate Site gadobenate dimeglumine (MULTIHANCE) injection 16 mL 16 mL, IntraVENous, IMG ONCE PRN, 1 dose, Starting on Thu12/13/24 at 1326, Until Thu12/13/24 at 1015, Other Given 12/13/2024 10:15 AM EDT 16 mLs documented in this encounter Care Teams Auto Parts Manager Relationship Specialty Start Date End Date Shaikh Ayala MD PCP - General 2/16/24 documented as of this encounter
--- OUTSIDE RECORDS SUMMARY | 2024-12-13 14:00 | XMS_ITS | Encounter Summary ---
Author Organization [facility] Address [address] [place] [address] Care Team Providers Care Towel Folder Name Role Phone Peggy Gatica NP Unavailable [phone] Gerald Low MD Primary Care Provider [phone] Reason for Visit * Reason Comments Diabetes Encounter Details Date Type Department Care Team (Late st Contact Info) Description 12/13/2024 2:00 PM EDT Office Visit [facility] [address] [place] [address] Tomeka Rosado NP [address] [place] [address] LLQ pain (Primary Dx); Primary malignant neuroendocrine neoplasm of duodenum (HCC); Class 1 obesity due to excess calories with serious comorbidity in adult, unspecified BMI; Type 2 diabetes mellitus with stage 3a chronic kidney disease, without long-term current use of insulin (HCC); Diverticulitis Social History Tobacco Use Types Packs/Day Years Used Date Smoking Tobacco: Former Cigarettes 1 15 1983 Passive Smoke Exposure: Never Smokeless Tobacco: Never [...] week 07/06/2024 How [facility] do you attend [facility] or [facility]an catholic services? Patient declined 07/06/2024 Do you belong to any clubs o r organizations such as gnosticist groups, unions, fraternal or athletic groups, or [...] Recorded Patient Health Questionnaire-2 Score 0 01/11/2024 [facility] - Occupational Stress Questionnaire Answer Date [...] place to sleep or slept in a care home (including now)? No 02/18/2023 Housing Stability [...] any time in the past 12 m [facility], were you homeless or living in a care home (including now)? No 07/06/2024 Sex and Gender Information Value Date Recorded Sex Assigned at Not on file Legal Sex Male 7:35 PM EDT Gender Identity Male 08/27/2022 7:35 PM EDT Sexual Orientation Not on file documented as of this encounter Last Filed Vital Signs Vital Sign Reading Time Taken Comments Blood Pressure 100/62 12/13/2024 2:05 PM EDT Pulse 24 12/13/2024 2:05 PM EDT Temperature 36.9 C (98.5 F) 12/13/2024 2:05 PM EDT Respiratory Rate 18 12/13/2024 2:05 PM EDT Oxygen Saturation 95% 12/13/2024 2:05 PM EDT Inhaled Oxygen Concentration - - Weight 102 kg (225 lb 12.8 oz) 12/13/2024 2:05 PM EDT Height - - Body Mass Index 32.4 07/13/2024 8:29 AM EST documented in this encounter Progress Notes * Tomeka Rosado NP - 12/13/2024 7:20 AM EDTAssociated Problem(s): Diverticulitis Treated with atb * Tomeka Rosado NP - 12/13/2024 7:19 AM EDTAssociated Problem(s): Type 2 diabetes mellitus with kidney complication, without long-term currentuse of insulin (HCC) Check blood sugars daily, notify if <70 or >200. Take medications (pills or insulin) as directed. Monitor for s/s of hypoglycemia (sweaty, dizziness, nausea, vomiting, or shakiness). Watch for increase in thirst, urination, or appetite. Inspect feet frequently monitoring for open wounds , andalso recommend yearly eye exam. Pt should attempt to remain as physically active as chronic conditions allow, as well as trying to follow a diet low in carbohydrates, and simple sugars. Current meds: jardiance, gimepiride, statin A1c 7.0% 11/28/24 * Tomeka Rosado NP - 12/13/2024 7:08 AM EDTAssociated Problem(s): Class 1 obesity with serious comorbidity in adult Discussed with patient their BMI (actual, verses recommended). We have also discussed lifestyle modifications: attempts to perform physical activity as chronic conditions allow, also to monitor dietary intake: increasing protein/fruits/veggies and lowering carb intake (unless contraindicated). Limit sodas, juices, and sugary drinks. * Tomeka Rosado NP - 12/13/2024 7:07 AM EDTAssociated Problem(s): LLQ pain Checked labs and xray at last appt Treated for suspected diverticulitis documented in this encounter Plan of Treatment Upcoming Encounters Date Type Department Care Team (Late st Contact Info) Description 01/09/2025 8:40 AM EDT [facility] [address] [place] [address] Tomeka Rosado NP [address] [place] [phone] 03/29/2025 9:30 AM EDT Office Visit [facility] [address] [place] [phone] Fahad Sears, GEMA [address] [place] [address] documented as of this encounter Visit Diagnoses Diagnosis LLQ pain- Primary Abdominal pain, left lower quadrant Primary malignant neuroendocrine neoplasm of duodenum (HCC) Class 1 obesity due to excess calories with serious comorbidity in adult, unspecified BMI Type 2 diabetes mellitus with stage 3a chronic kidney disease, without long-term current use of insulin (HCC) Diverticulitis Diverticulitis of colon (without mention of hemorrhage) documented in this encounter Care Teams Towel Folder Relationship Specialty Start Date End Date Gerald Low MD [address] [place] [address] PCP - General Family Medicine 04/13/24 Peggy Gatica NP Nurse Practitioner Family Medicine 04/12/24 documented as of this encounter
--- OUTSIDE RECORDS SUMMARY | 2024-12-13 15:03 | XMS_ITS | Encounter Summary ---
Author Organization [facility] Address [address] [place] [address] Care Team Providers Care Branch Account Manager Name Role Phone Peggy Gatica MANAGER [employer] Unavailable [phone] Gerald Low MD Primary Care Provider [phone] Renea Barajas DO Unavailable Encounter Details Date Type Department Care Team (Late st Contact Info) Description 07/29/2024 Orders Only [facility] [address] [place] [address] [place] [address] [place] [address] Social History Tobacco Use Types Packs/Day Years Used Date Smoking Tobacco: Former Cigarettes 1 15 9 1983 Passive Smoke Exposure: Never Smokeless Tobacco: [...] week 07/06/2024 How often do you attend [facility] or roman catholic services? Patient declined 07/06/2024 Do you belong to any clubs o r organizations such as bahai groups, unions, fraternal or athletic groups, or [...] Recorded Patient Health Questionnaire-2 Score 0 01/11/2024 [facility] [place] [facility] Occupat ional Health - Occupational Stress Questionnaire Answer Date [...] place to sleep or slept in a chcf (including now)? No 02/18/2023 Housing Stability Vital Sign Answer Saurav e Recorded In the last 12 months, was t here a time when you were not able to pay the mortgage or rent on time? No 07/06/2024 In the past 12 months, how m any times have you moved where you were living? 0 07/06/2024 At any time in the past 12 m [facility], were you homeless or living in a chcf (including now)? No 07/06/2024 Sex and Gender [...] Office Visit [facility] [address] [place] [address] Tomeka Rosado NP [address] [place] [address] 03/29/2025 9:30 AM EDT Office Visit [facility] [address] [place] [phone] Fahad Sears, PA [address] [facility] [address] [place] [address] documented as of this encounter Procedures Procedure Name Priority Date/Time Associated Diagnosis Comments SCANNED LABS Routine 07/29/2024 8:55 AM EST documented in this encounter Results * SCANNED LABS (07/29/2024 8:55 AM EST) Ainsa Magaña MD LAB CHG PERFORMABLES Final Resul t documented in this encounter Visit Diagnoses Not on filedocumented in this encounter Care Teams Branch Account Manager Relationship Specialty Start Date End Date Gerald Low MD [address] [place] [address] PCP - General Family Medicine 04/13/24 Renea Barajas DO [address] [facility] 200 [facility] [place] [place] [address] PCP - ACO Reach 07/29/24 09/15/24 Peggy Gatica NP Nurse Practitioner Family Medicine 04/12/24 documented as of this encounter
--- OUTSIDE RECORDS SUMMARY | 2024-12-13 15:03 | XMS_ITS | Encounter Summary ---
Author Organization [facility] Address [address] [place] [address] Care Team Providers Care Food And Nutrition Services Assistant Name Role Phone Peggy Gatica NP Unavailable [phone] Gerald Low MD Primary Care Provider [phone] Encounter Details Date Type Department Care Team (Late st Contact Info) Description 11/28/2024 External Result Encounter [facility] External Department Unsolicited Tomeka Rosado NP [address] [place] [address] Social History Tobacco Use Types Packs/Day Years Used Date Smoking Tobacco: Former Cigarettes 1 9 1983 Passive Smoke Exposure: Never Smokeless [...] week 07/06/2024 How often do you attend chur or methodist services? Patient declined 07/06/2024 Do you belong to any clubs o r organizations such as rastafari groups, unions, fraternal or athletic groups, or [...] Recorded Patient Health Questionnaire-2 Score 0 01/11/2024 [facility] of Occupat ional Health - Occupational Stress [...] place to sleep or slept in a intermediate (including now)? No 02/18/2023 Housing Stability Vital Sign Answer Saurav e Recorded In the last 12 months, was t here a time when you were not able to pay the mortgage or rent on time? No 07/06/2024 In the past 12 months, how m any times have you moved where you were living? 0 07/06/2024 At any time in the past 12 m [facility], were you homeless or living in a intermediate (including now)? No 07/06/2024 Sex and Gender Information Value Date Recorded Sex Assigned at Not on file Legal Sex Male 7:35 PM EDT Gender Identity Male 08/27/2022 7:35 PM EDT Sexual Orientation Not on file documented as of this encounter Plan of Treatment Upcoming Encounters Date Type Department Care Team (Late st Contact Info) Description 01/09/2025 8:40 AM EDT Office Visit [facility] [address] [place] [address] Tomeka Rosado NP [address] [place] [address] 03/29/2025 9:30 AM EDT Office Visit [facility] [address] [facility] [place] [address] Fahad Sears PA [address] [facility] [address] [place] [address] documented as of this encounter Procedures Procedure Name Priority Date/Time Associated Diagnosis Comments CULTURE, URINE, ROUTINE Routine 11/28/2024 2:55 PM EDT documented in this encounter Results * Urine culture (11/28/2024 2:55 PM EDT) Pathologist [facility] NOTE No Growth 2 Days 12/01/2024 10:41 AM EDT [facility] Urine Urine specimen obtained by clean catch procedure / Unknown 11/28/2024 2:55 PM EDT 11/29/2024 1:35 PM EDT Comment:Not Otherwise Specif ied Tomeka Rosado NP LAB MICROBIOLOGY - GENERAL [place]TH[place]AN [place]CHER Final Result [facility] [address] [place] [address], [facility] [address] [place] [address] documented in this encounter Visit Diagnoses Not on filedocumented in this encounter Care Teams Food And Nutrition Services Assistant Relationship Specialty Start Date End Date Gerald Low MD [address] [place] [address] PCP - General Family Medicine 04/13/24 Peggy Gatica NP Nurse Practitioner Family Medicine 04/12/24 documented as of this encounter
--- OUTSIDE RECORDS SUMMARY | 2024-12-13 15:03 | XMS_ITS | Patient Health Record ---
Author Organization [facility] [place] Address [address] [place] [address] Care Team Providers Care Crown Presser Name Role Phone Jamie HERNANDEZ, Gallegos Primary Care Provider Alan East Unavailable [phone] Allergies Allergen (clinical drug ingredient) Drug/Non Drug Allergy documented on EMR Reaction Allergy Type Onset Date Status azithromycin Azithromycin Unknown Drug Allergy A ctive lisinopril Lisinopril cough Drug Allergy Activ e ciprofloxacin Ciprofloxacin Unknown Drug Allergy Active Reason For Referral No Information Medications Medication SIG (Take, Route, Frequency, Duration) Notes Start Date End Date Status Furosemide 20 MG Oral for 90 Days Active Fluticasone Propionate 50 MCG/ACT 1 spray in each nostril Nasally Once a day Active hydrALAZINE HCl 50 MG 1 tablet with food Orally BID for 90 days Active Glimepiride 4 MG Oral for 90 Days Active Losartan Potassium 100 MG Oral for 90 Days Active Jardiance 25 MG Oral for 90 Days Active Rosuvastatin Calcium 20 MG Oral for 90 Days Active Pantoprazole Sodium 40 MG Oral for 30 Days Active Aspirin Low Dose 81 MG CHEW 1 TABLET (81 MG) IN THE MORNING Oral for 90 Days Active Tamsulosin HCl 0.4 MG Oral for 90 Days Active Allopurinol 300 MG Oral for 90 Days Active Sucralfate 1 GM Oral for 90 Days Active Bisoprolol Fumarate 5 MG Oral for 90 Days Active Immunizations Vaccine Route Administration Date Status Comme [facility] [employer] Syringe Pre -Filled 30 mcg/0.3 mL Unknown 04/28/2023 Administered Flu, Fluzone High-Dose (2022 -2023) (51989) 65 yrs+ Unknown 03/20/2023 Administered Pneumococcal (Pneumovax 23) Unknown 02/24/2023 Administ ered Tdap (Boostrix) Unknown 10/27/2018 Administered Zoster (Zostavax) Unknown 05/24/2016 Administered Social History Tobacco Use: Social History Observation [...] Problem Status W/U Status Risk Notes Problem [id number] Obesity, unspecified (E66.9) Active confirmed Problem Hypersomnia (09590589) Hypersomnia (G47.10) Active confirmed Problem Ex-tobacco user (finding) (103372337) History of tobacco abuse (Z87.891) Active confirmed Vital Signs Heart Rate 73 /min 01/13/2024 RA Activity/Res ting Temperature 96.8 degrees Fahrenheit 01/13/2024 RA A ctivity/Resting Respiratory Rate 18 /min 01/13/2024 RA Activity /Resting Oximetry 95 % 01/13/2024 RA Activity/Res ting Blood pressure diastolic 74 mm Hg 01/13/2024 RA Activity/Resting Height 69 in 01/13/2024 RA Activity/Res ting Blood pressure systolic 122 mm Hg 01/13/2024 RA A ctivity/Resting Weight 233.8 lbs 01/13/2024 RA Activity/Res ting BMI 34.52 kg/m2 01/13/2024 RA Activity/Res ting Encounters Encounter Location Date Provider Diagnosis Pulmonary Medicine [place] [address] [place] [address] 01/13/2024 Alan Samsa Hypersomnia G47.10 ; Obesity, unspecified E66.9 and History of tobacco abuse Z87.891 Assessments Encounter Date Diagnosis (ICD Code) Assessment Notes Treatment Notes Treatment Clinical Notes Section Notes 01/13/2024 Obesity, unspecified (ICD-10 - E66.9) Patient's weight is inducing a restrictive pulmonary physiology. Weight loss indicated: Decrease calories, increase activity. 01/13/2024 Hypersomnia (ICD-10 - G47.10) The main question is this this patient have obstructive sleep apnea. Speonk is only 2, though STOP-BANG is 3, [...] therapy, he can return as needed. 01/13/2024 History of tobacco abuse (ICD-10 - Z87.891) Quit smoking in 1973. Does not meet current LDCT screening criteria. Plan Of Treatment No Information Insurance Providers Payer Name Payer Address Payer Phone Subscriber Number Group Number Insured Name Patient Relationship to Insured Coverage Start Date Coverage End Date [place] [address] [place] [address] [id number] Brent Car Self - patient is the insured 7 [employer] SUPPLEMENT INSURANCE [address] [place] [address] [id number] Brent Car Self - patient is the insured Medical (General) History Medical History History ICD Code History of tobacco abuse Z87.891 Surgical History Surgery Date(Month/Year) Cardiac Catheterization 07/27/2023 cholecystectomy EGD appendectomy rotator cuff tear repair-left bunionectomy-left foot tonsillectomy and adenoidectomy Hospitalization History Reason Date(Month/Year) Bradycardia-TBH 07/09/2023
--- OUTSIDE RECORDS SUMMARY | 2024-12-13 15:04 | XMS_ITS | Clinical Summary ---
Author Organization [facility] Address [address] [place] [address] Care Team Providers Care Set Up / Operator Name Role Phone Shaikh MARY Ayala Primary Care Provider [phone] Allergies Active Allergy Reactions Criticality Noted Date Comments Ciprofloxacin Other (See Comments) 11/24/2022 Other Reaction(s): ?change in mental status TIA Erythromycin Other (See Comments) 04/28/2023 Lisinopril Cough 06/24/2021 Medications allopurinol (ZYLOPRIM) 300 MG tablet Take 1 tablet by mouth daily 09/17/2020 Active aspirin 81 MG chewable tablet Take 1 tablet by mouth daily 07/27/2023 Active empagliflozin (JARDIANCE) 25 MG tablet Take 1 tablet by mouth daily 07/30/2023 Active fluticasone (FLONASE) 50 MCG/ACT nasal spray 2 sprays daily 09/17/2020 Active furosemide (LASIX) 20 MG tablet Take 1 tablet by mouth daily 10/07/2020 Active glimepiride (AMARYL) 4 MG tablet Take 1 tablet by mouth every morning (before breakfast) 10/07/2020 Active FREESTYLE LITE strip USE DIRECTED ONCE TEST 06/22/2023 Active losartan (COZAAR) 100 MG tablet Take 1 tablet by mouth daily 09/17/2020 Active rosuvastatin (CRESTOR) 10 MG tablet Take 2 tablets by mouth daily 09/17/2020 Active pantoprazole (PROTONIX) 40 MG tablet Take 1 tablet by mouth 2 times daily 10/07/2023 Active sucralfate (CARAFATE) 1 GM tablet Take 1 tablet by mouth 4 times daily 10/07/2023 Active bisoprolol (ZEBETA) 5 MG tablet Take 1 tablet by mouth in the morning and at bedtime Active tamsulosin (FLOMAX) 0.4 MG capsule TAKE 1 CAPSULE DAILY 90 capsule 3 08/04/2024 Active Encounters Date Type Department Care Team Description 12/13/2024 9:11 AM EDT Hospital Encounter [address] [address] Ky Justice, MOLLYC Bilateral renal cysts; Adrenal adenoma, left 12/08/2024 7:50 AM EDT - 12/08/2024 11:59 PM EDT Hospital Encounter [facility] Laboratory [address] [place] [id number] Bilateral renal cysts; Adrenal adenoma, left Discharge Disposition: Home or Self Care from Last 3 Months Social History Tobacco Use Types Packs/Day Years Used Date Smoking Tobacco: Never Smokeless Tobacco: Never Tobacco Cessation:Counseling Given: Not [...] Sign Reading Time Taken Comments Blood Pressure 152/81 12/14/2023 2:45 PM EDT Pulse 70 12/14/2023 2:45 PM EDT Temperature - - Respiratory Rate - - Oxygen Saturation 95% 12/14/2023 2:45 PM EDT Inhaled Oxygen Concentration - - Weight 106.6 kg (235 lb) 12/14/2023 2:45 PM EDT Height 177.8 cm (5' 10 ) 09/07/2023 10:09 AM EDT Body Mass Index 33.72 09/07/2023 10:09 AM EDT Plan of Treatment Upcoming Encounters Date Type Department Care Team (Late Contact Info) Description 12/20/2024 10:15 AM EDT Office Visit [facility] Specialty Providers on [address] [phone] Ky Justice, PAArchana [address] [place] [address] Dr [address] [place] [address] 1 year f/u with MRI Health Maintenance Due Date Last Done Comments Depression Screen 1961 Hepatitis C screen 1967 Lipids 1989 Colonoscopy 1994 Colorectal Cancer Screen 1994 FIT/FOBT: Average risk 1994 Fecal-DNA (Cologuard): Average risk 1994 Sigmoidoscopy/CT colonography 1994 Shingles vaccine (2 of 3) 07/19/2016 05/24/2016, 06/2015 Annual Wellness Visit (Medicare) 07/31/2023 COVID-19 Vaccine ( season) 2024 04/28/2023, 10/15/2021, 03/25/2021, Additional history exists Flu vaccine (#1) 01/13/2025 04/05/2024, 11/2022, 03/27/2022, Additional history exists DTaP/Tdap/Td vaccine (3 - Td or Tdap) 10/27/2028 10/27/2018, 03/14/2011 Pneumococcal 50+ years Vaccine Completed 02/24/2023, 11/22/2018, 05/21/2018, Additional history exists Respiratory Syncytial Virus (RSV) or age 60 yrs+ Completed 05/24/2024 GFR test (Diabetes, CKD 3-4, OR last GFR 15-59) Discontinued 12/08/2024, 11/30/2023 Hepatitis A vaccine Aged Out No longe r eligible based on patient's age to complete this topic Hepatitis B vaccine Aged Out No longe r eligible based on patient's age to complete this topic Hib vaccine Aged Out No longer eligi ble based on patient's age to complete this topic Meningococcal (ACWY) vaccine Aged Out No longer eligible based on patient's age to complete this topic Meningococcal B vaccine Aged Out No l onger eligible based on patient's age to complete this topic Polio vaccine Aged Out No longer elig ible based on patient's age to complete this topic Procedures Procedure Name Priority Date/Time Associated Diagnosis Comments BUN & CREATININE Routine 12/08/2024 7:50 AM EDT Bilateral renal cysts Adrenal adenoma, left from Last 3 Months Results * (ABNORMAL) BUN & Creatinine (12/08/2024 7:50 AM EDT) BUN 24(H) 9 - 20 mg/dL 12/08/2024 7:50 AM EDT [facility] Creatinine 1.07 0.66 - 1.25 mg/dL 12/08/2024 7:50 AM EDT [facility] Est, Glom Filt Rate 72 >60 mL/min/1.7 3m2 12/08/2024 7:50 AM EDT [facility] Comment: GFR calculated using [...] 7:50 AM EDT 12/08/2024 10:38 AM EDT us Ky Justice PA-C CHEMISTRY ORDERABLES Final Result Performing Organization Address City/State/[facility] Co de Phone Number [address] [address] from Last 3 Months Insurance MEDICARE [employer] Care Teams Set Up / Operator Relationship Specialty Start Date End Date Shaikh Ayala MD PCP - General 07/31/23
--- OUTSIDE RECORDS SUMMARY | 2024-12-13 15:04 | XMS_ITS | Clinical Summary ---
Author Organization [facility] tem Address [id number] [address] [place] [address] Care Team Providers Care Cash Control Specialist Name Role Phone Renea Barajas DO Primary Care Provider Unavaila ble Allergies Active Allergy Reactions Criticality Noted Date [...] to Health Maintenance Results * Colonoscopy (11/28/2020) us Jeovanny Murphy DO GI PROCEDURE ORDERABLES Fin al Result MANUALLY TRANSCRIBED RESULTS from Last 3 Months or Most Recently Relevant to Health Maintenance Insurance MEDICARE [id number] PLAN Care Teams Cash Control Specialist Relationship Specialty Start Date End Date Renea Barajas DO PCP - General Family Medicine 11/21/20
--- OUTSIDE RECORDS SUMMARY | 2024-12-13 15:04 | XMS_ITS | Encounter Summary ---
Author Organization [facility] Address [address] [place] [address] Care Team Providers Care Mechanical Handyman Name Role Phone Shaikh MARY Ayala Primary Care Provider [phone] Encounter Details Date Type Department Care Team (Late st Contact Info) Description 12/01/2023 Hospital Encounter [facility] Radiology [address] [place] [id number] Social History Tobacco Use Types Packs/Day Years [...] Description 12/20/2024 10:15 AM EDT Office Visit [facility] on [address] [address] [place] [address] [place] [address] [address] 1 year f/u with MRI documented as of this encounter Visit Diagnoses Not on filedocumented in this encounter Care Teams Mechanical Handyman Relationship Specialty Start Date End Date Shaikh Ayala MD PCP - General 07/31/23 documented as of this encounter
--- OUTSIDE RECORDS SUMMARY | 2024-12-13 15:04 | XMS_ITS | Referral Summary ---
Author Organization [facility] Address [address] [place] [address] Care Team Providers Care Clinical Research Management Associate Name Role Phone Tomeka Rosado MD Primary Care Provider [phone] Encounters Date Type Department Care Team Description 11/23/2024 Orders Only [facility] [address] [place] [address] ProviderAddy MD 11/22/2024 3:30 PM EDT Office Visit [facility] [address] [facility] [address] Noe San MD Palpitations (Primary Dx) 10/02/2024 Refill [facility] [address] [place] [address] Noe San MD Palpitations from Last 3 [...] 10 mg tabletIndications: 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 Asymptomatic. Instructed to start using ASA. Patient scheduled for [facility] on 07/29/23 No prior hx of CAD Encounter to establish care with new doctor 06/1708/18/2023 Overview (08/18/2023): Last Assessment & Plan: New Patient, here to establish care. Reviewed medical, surgical and social hx. Reviewed available old records. Reviewed and updated medication list. New Patient for this practice. Was previously established with Dr Barajas but had to switch since she moved to [facility]. Near syncope 07/10/2023 Assessment & Plan (08/18/2023 11:07 AM EST): Currently stable, no further episode noted Assessment & Plan (07/10/2023 5:18 PM EST): Recently admitted to [facility] for near syncope, bradycardia, abnormal [...] of Treatment Not on file Insurance MEDICARE [facility] Care Teams Clinical Research Management Associate Relationship Specialty Start Date End Date Tomeka Rosado MD [address] [place] [address] PCP - General Nurse Practitioner 11/22/24
--- OUTSIDE RECORDS SUMMARY | 2024-12-13 15:04 | XMS_ITS | Encounter Summary ---
Author Organization [facility] Address [address] [place] [address] Care Team Providers Care Lime Vat Tender Name Role Phone Peggy Gatica CLINICAL LABORATORY AIDES TEACHER Unavailable [phone] Gerald Low MD Primary Care Provider [phone] Encounter Details Date Type Department Care Team (Latest Contact Info) Description 11/30/2024 Travel Social History Tobacco Use Types Packs/Day Years Used Date Smoking Tobacco: Former Cigarettes 1 1983 Passive Smoke Exposure: Never Smokeless Tobacco: [...] 07/06/2024 How often do you attend chur ch or presybeterian services? Patient declined 07/06/2024 Do you belong to any clubs o r organizations such as baptism groups, unions, fraternal or athletic groups, or [...] Recorded Patient Health Questionnaire-2 Score 0 01/11/2024 [facility] of Occupat ional Health - Occupational Stress [...] place to sleep or slept in a mcfp (including now)? No 02/18/2023 Housing Stability Vital Sign Answer Saurav e Recorded In the last 12 months, was t here a time when you were not able to pay the mortgage or rent on time? No 07/06/2024 In the past 12 months, how m any times have you moved where you were living? 0 07/06/2024 At any time in the past 12 m [facility], were you homeless or living in a mcfp (including now)? No 07/06/2024 Sex and Gender Information Value Date Recorded Sex Assigned at Not on file Legal Sex Male 7:35 PM EDT Gender Identity Male 08/27/2022 7:35 PM EDT Sexual Orientation Not on file documented as of this encounter Plan of Treatment Upcoming Encounters Date Type Department Care Team (Late st Contact Info) Description 01/09/2025 8:40 AM EDT Office Visit [facility] [address] [place] [phone] Tomeka Rosado NP [address] [place] [address] 03/29/2025 9:30 AM EDT Office Visit [facility] [address] [place] [address] Sears, Fahad J, PA [address] [place] [address] documented as of this encounter Visit Diagnoses Not on filedocumented in this encounter Care Teams Lime Vat Tender Relationship Specialty Start Date End Date Gerald Low MD [address] [place] [address] PCP - General Family Medicine 04/13/24 Peggy Gatica NP Nurse Practitioner Family Medicine 04/12/24 documented as of this encounter
--- OUTSIDE RECORDS SUMMARY | 2024-12-13 15:04 | XMS_ITS | Encounter Summary ---
Author Organization [facility] Address [address] [place] [address] Care Team Providers Care Foreign Banknote Teller Name Role Phone Shaikh MARY Ayala Primary Care Provider [phone] Renea Barajas DO Unavailable [phone] Peggy Gatica QUARRY MANAGER Unavailable [phone] Gerald Low MD Primary Care Provider [phone] Renea Barajas DO Unavailable [phone] Encounter Details Date Type Department Care Team (Late st Contact Info) Description 07/30/2023 Orders Only [facility] [address] [place] [address] Shaikh Ayala MD [address] [place] [address] Social History Tobacco Use Types Packs/Day Years Used Date Smoking Tobacco: Former Cigarettes 15 1 969 - 1983 Passive Smoke Exposure: Never Smokeless Tobacco: Never Alcohol Use Standard Drinks/Week Comments Yes 0 (1 standard drink = 0.6 oz pur e alcohol) caffeine: none Humiliation, Afraid, Rape, and Kick questionnair e [...] or ex-partner? No 02/18/2023 Social Connection and Isolation Panel [NHANES] A nswer Date Recorded In a typical week, how many times do you talk on the phone with family, friends, or neighbors? Once a week 02/18/2023 How often do you get togethe r with friends or relatives? Twice a week 02/18/2023 How often do you attend adventism or baptism serv ices? Patient declined 02/18/2023 Do you belong to any clubs o r organizations such as adventism groups, unions, fraternal or athletic groups, or school groups? No 02/18/2023 How often do you attend meet ings of the clubs or organizations you belong to? Never 02/18/2023 Are you , , di vorced, , never , or living with a partner? 02/18/2023 AUDIT-C Answer Date Recorded Q1: How often do you have a drink containing alc ohol? Monthly or less 06/28/2023 Q2: How many drinks containi ng alcohol do you have on a typical day when you are drinking? 1 or 2 06/28/2023 Q3: How often do you have si x or more drinks on one occasion? Monthly 06/28/2023 Overall Financial Resource Strain (CARDIA) Answe r Date Recorded How hard is it for you to pa y for the very basics like food, housing, medical care, and heating? Not hard at all 02/18/2023 PHQ-2 Answer Date Recorded Patient Health Questionnaire-2 Score 0 07/15/2023 [facility] [place] of Occupat ional Health - Occupational Stress Questionnaire Answer Date Recorded Do you feel stress - tense, restless, nervous, or anxious, or unable to sleep at night because your mind is troubled all the time - these days? Only a little 02/18/2023 Exercise Vital Sign Answer Date Recorde d On average, how many days pe r week do you engage in moderate to strenuous exercise (like a brisk walk)? 2 days 02/18/2023 On average, how many minutes do you engage in exercise at this level? 30 min 02/18/2023 Hunger Vital Sign Answer Date Recorded Within the past 12 months, y ou worried that your food would run out before you got the money to buy more. Never true 02/19/20 23 Within the past 12 months, t he food you bought just didn't last and you didn't have money to get more. Never true 02/18/2023 PRAPARE - Transportation Answer Date Re corded In the past 12 months, has l ack of transportation kept you from medical appointments or from getting medications? No 11/2022 In the past 12 months, has l ack of transportation kept you from meetings, work, or from getting things needed for daily living? No 02/18/2023 Housing Stability Vital Sign Answer [...] place to sleep or slept in a longterm (including now)? No 02/18/2023 Sex and Gender Information Value Date Recorded Sex Assigned at Not on file Legal Sex Male 7:35 PM EDT Gender Identity Male 08/27/2022 7:35 PM EDT Sexual Orientation Not on file documented as of this encounter Plan of Treatment Upcoming Encounters Date Type Department Care Team (Late st Contact Info) Description 01/09/2025 8:40 AM EDT Office Visit [facility] [address] [place] [address] Tomeka Rosado NP [address] [place] [address] 03/29/2025 9:30 AM EDT Office Visit [facility] [address] [place] [address] Fahad Sears PA [address] [place] [address] [place], [place] [address] [phone] documented as of this encounter Procedures Procedure Name Priority Date/Time Associated Diagnosis Comments US RENAL COMPLETE Routine 07/17/2023 11:51 AM EST documented in this encounter Results * US renal complete (07/17/2023 11:51 AM EST) Anatomical Region Laterality Modality Kidney Ultrasound us Shaikh Jamie HERNANDEZ IMG US PROCEDURES Final Result documented in this encounter Visit Diagnoses Not on filedocumented in this encounter Care Teams Foreign Banknote Teller Relationship Specialty Start Date End Date Shaikh Ayala MD [address] [place] [address] PCP - General Internal Medicine 07/15/23 04/11/24 Renea Barajas DO [address] [facility] [address] [address] [facility] [place] [address] PCP - ACO Reach 08/14/23 07/21/24 Gerald Low MD [address] [place] [address] PCP - General Family Medicine 04/13/24 Renea Barajas DO [address] [facility] [address] [address] [facility] [place] [address] PCP - ACO Reach 07/29/24 09/15/24 Peggy Gatica NP [address] [facility] [address] [address] [facility] [place] [address] Nurse Practitioner Family Medicine 04/12/24 documented as of this encounter
--- OUTSIDE RECORDS SUMMARY | 2024-12-13 15:04 | XMS_ITS | Encounter Summary ---
Author Organization [facility] Address [address] [place] [address] Care Team Providers Care Naval Special Warfare Medic Name Role Phone Shaikh MARY Ayala Primary Care Provider [phone] Renea Barajas DO Unavailable [phone] Peggy Gatica LITIGATION SUPPORT ANALYST Unavailable [phone] Gerald Low MD Primary Care Provider [phone] Renea Barajas DO Unavailable [phone] Encounter Details Date Type Department Care Team (Late st Contact Info) Description 08/13/2023 Orders Only [facility] [address] [place] [address] Shaikh Ayala MD [address] [place] [address] Social History Tobacco Use Types Packs/Day Years Used Date Smoking Tobacco: Former Cigarettes 1 15 1 969 - 1983 Passive Smoke [...] week 02/18/2023 How often do you attend worship or advent serv ices? Patient declined 02/18/2023 Do you belong to any clubs o r organizations such as worship groups, unions, fraternal or athletic groups, or [...] Date Recorded Patient Health Questionnaire-2 Score 0 08/11/2023 [facility] [place] of Occupat ional Health - Occupational Stress [...] place to sleep or slept in a long-term (including now)? No 02/18/2023 Sex and Gender [...] [facility] [address] [place] [address] Tomeka Rosado NP [address] [place] [address] 03/29/2025 9:30 AM EDT Office Visit [facility] [address] [place] [address] Fahad Sears PA [address] [place] [address] [place], [place] [phone] documented as of this encounter Procedures Procedure Name Priority Date/Time Associated Diagnosis Comments XR CHEST 1 VIEW Routine 07/31/2023 3:55 PM EST documented in this encounter Results * XR chest 1 view (07/31/2023 3:55 PM EST) Anatomical Region Laterality Modality Chest Radiographic Bridgette ging Shaikh Jamie HERNANDEZ IMG XR PROCEDURES Final Result documented in this encounter Visit Diagnoses Not on filedocumented in this encounter Care Teams Naval Special Warfare Medic Relationship Specialty Start Date End Date Shaikh Ayala MD [address] [place] [address] PCP - General Internal Medicine 07/15/23 04/11/24 Renea Barajas DO [address] [facility] [address] [address] [facility] [place] [address] PCP - ACO Reach 08/14/23 07/21/24 Gerald Low MD [address] [place] [address] PCP - General Family Medicine 04/13/24 Renea Barajas DO [address] [facility] [address] [address] [facility] [place] [address] PCP - ACO Reach 07/29/24 09/15/24 Peggy Gatica NP [address] [facility] [address] [address] [facility] [place] [address] Nurse Practitioner Family Medicine 04/12/24 documented as of this encounter
--- OUTSIDE RECORDS SUMMARY | 2024-12-13 15:04 | XMS_ITS | Encounter Summary ---
Author Organization [facility] Address [address] [place] [address] Care Team Providers Care Supervisor Force Adjustment Name Role Phone Peggy Gatica PATIENT SERVICE TECHNICIAN PST Unavailable [phone] Gerald Low MD Primary Care Provider Encounter Details Date Type Department Care Team (Latest Contact Info) Description 12/06/2024 Travel Social History Tobacco Use Types Packs/Day [...] often do you attend chur ch or uatsdin services? Patient declined 07/06/2024 Do you belong [...] Recorded Patient Health Questionnaire-2 Score 0 01/11/2024 [facility] of Occupat ional Health - Occupational Stress [...] place to sleep or slept in a custodial (including now)? No 02/18/2023 Housing Stability Vital Sign Answer Saurav e Recorded In the last 12 months, was t here a time when you were not able to pay the mortgage or rent on time? No 07/06/2024 In the past 12 months, how m any times have you moved where you were living? 0 07/06/2024 At any time in the past [facility], were you homeless or living in a custodial (including now)? No 07/06/2024 Sex and Gender [...] [facility] [address] [place] [address] Tomeka Rosado NP [address] [place] [address] 03/29/2025 9:30 AM EDT Office Visit [facility] [address] [place] [address] Sears, Fahad J, PA [address] [place] [address] documented as of this encounter Visit Diagnoses Not on filedocumented in this encounter Care Teams Supervisor Force Adjustment Relationship Specialty Start Date End Date Gerald Low MD [address] [place] [address] PCP - General Family Medicine 04/13/24 Peggy Gatica NP Nurse Practitioner Family Medicine 04/12/24 documented as of this encounter
--- OUTSIDE RECORDS SUMMARY | 2024-12-13 15:04 | XMS_ITS | Encounter Summary ---
Author Organization [facility] Address [address] [place] [address] Care Team Providers Care Account Officer Name Role Phone Shaikh MARY Ayala Primary Care Provider [phone] Renea Barajas DO Unavailable [phone] Peggy Gatica VALET SERVICE ATTENDANT Unavailable [phone] Gerald Low MD Primary Care Provider [phone] Renea Barajas DO Unavailable [phone] Encounter Details Date Type Department Care Team (Late st Contact Info) Description 10/08/2023 Orders Only [facility] [address] [place] [address] Nino Martell MD [address] [facility] Social History Tobacco Use Types Packs/Day Years Used Date Smoking Tobacco: Former Cigarettes 1 29 06 969 - 1983 Passive Smoke Exposure: Never [...] week 02/18/2023 How often do you attend oriental orthodox or jehovah's witness serv ices? Patient declined 02/18/2023 Do you belong to any clubs o r organizations such as oriental orthodox groups, unions, fraternal or athletic groups, or [...] Date Recorded Patient Health Questionnaire-2 Score 0 10/12/2023 [facility] of Occupat ional Health - Occupational [...] place to sleep or slept in a residential (including now)? No 02/18/2023 Sex and Gender Information Value Date Recorded Sex Assigned at Not on file Legal Sex Male 7:35 PM EDT Gender Identity Male 08/27/2022 7:35 PM EDT Sexual Orientation Not on file documented as of this encounter Plan of Treatment Upcoming Encounters Date Type Department Care Team (Late st Contact Info) Description 01/09/2025 8:40 AM EDT Office Visit [facility] [address] [place] [address] Tomeka Rosado NP [address] [place] [address] 03/29/2025 9:30 AM EDT Office Visit [facility] [address] [place] [address] Fahad Sears PA [address] [place] [address] documented as of this encounter Procedures Procedure Name Priority Date/Time Associated Diagnosis Comments XR CHEST 2 VIEWS Routine 10/08/2023 8:04 AM EDT documented in this encounter Results * XR chest 2 views (10/08/2023 8:04 AM EDT) Anatomical Region Laterality Modality Chest Radiographic Bridgette ging Nino Martell MD IMG XR PROCEDURES Final Result documented in this encounter Visit Diagnoses Not on filedocumented in this encounter Care Teams Account Officer Relationship Specialty Start Date End Date Shaikh Ayala MD [address] [place] [address] PCP - General Internal Medicine 07/15/23 04/11/24 Renea Barajas DO [address] [facility] [address] [place] [address] PCP - ACO Reach 08/14/23 07/21/24 Gerald Low MD [address] [place] [address] PCP - General Family Medicine 04/13/24 Renea Barajas DO [address] [facility] [address] [place] [address] PCP - ACO Reach 07/29/24 09/15/24 Peggy Gatica NP [address] [facility] [address] [place] [address] Nurse Practitioner Family Medicine 04/12/24 documented as of this encounter
--- OUTSIDE RECORDS SUMMARY | 2024-12-13 15:04 | XMS_ITS | Encounter Summary ---
Author Organization [facility] Address [address] [place] [address] Care Team Providers Care Auditor Name Role Phone Shaikh MARY Ayala Primary Care Provider [phone] Renea Barajas DO Unavailable [phone] Peggy Gatica FEDERAL JUDICIAL LAW CLERK Unavailable [phone] Gerald Low MD Primary Care Provider [phone] Renea Barajas DO Unavailable [phone] Encounter Details Date Type Department Care Team (Late st Contact Info) Description 10/12/2023 Orders Only [facility] [address] [place] [address] Shaikh Ayala MD [address] [place] [address] Social History Tobacco Use Types Packs/Day Years Used Date Smoking Tobacco: Former Cigarettes 1 15 1 969 - 1983 Passive Smoke Exposure: Never Smokeless Tobacco: Never Alcohol Use Standard Drinks/Week Comments Yes 0 (1 standard drink = 0.6 oz pur e alcohol) OCCASSIONA; Humiliation, Afraid, Rape, and Kick questionnair e [...] week 02/18/2023 How often do you attend taoism or zoroastrian serv ices? Patient declined 02/18/2023 Do you belong to any clubs o r organizations such as taoism groups, unions, fraternal or athletic groups, or [...] Recorded Patient Health Questionnaire-2 Score 0 10/12/2023 [facility] [place] of Occupat ional Health - Occupational Stress [...] in a mcfp (including now)? No 02/18/2023 Sex and Gender Information Value Date Recorded Sex Assigned at Not on file Legal Sex Male 7:35 PM EDT Gender Identity Male 08/27/2022 7:35 PM EDT Sexual Orientation Not on file documented as of this encounter Functional Status * Over the past 2 weeks, how often have you been bothered by any of the following problems? Question Answer Date of Assessment Author Little interest or pleasure in doing things Not at all 10/12/2023 9:51 AM EDT Tejas Soto M A Feeling down, depressed, or hopeless Not at all 10/12/2023 9:51 AM EDT Tejas Soto M A Patient Health Questionnaire -2 Score 0 10/12/2023 9:51 AM EDT Tejas Soto M A documented as of this encounter Plan of Treatment Upcoming Encounters Date Type Department Care Team (Late st Contact Info) Description 01/09/2025 8:40 AM EDT Office Visit [facility] [address] [place] [address] Tomeka Rosado NP [address] [place] [address] 03/29/2025 9:30 AM EDT Office Visit [facility] [address] [facility] [place] [address] Fahad Sears, PA [address] [facility] [address] [place] [address] documented as of this encounter Visit Diagnoses Not on filedocumented in this encounter Care Teams Auditor Relationship Specialty Start Date End Date Shaikh Ayala MD [address] [place] [address] PCP - General Internal Medicine 07/15/23 04/11/24 Renea Barajas DO [address] [facility] 200 [place] [address] PCP - ACO Reach 08/14/23 07/21/24 Gerald Low MD [address] [place] [address] PCP - General Family Medicine 04/13/24 Renea Barajas DO [address] [facility] 200 [place] [address] PCP - ACO Reach 07/29/24 09/15/24 Peggy Gatica NP [address] [facility] [address] [place] [address] Nurse Practitioner Family Medicine 04/12/24 documented as of this encounter
--- OUTSIDE RECORDS SUMMARY | 2024-12-13 15:04 | XMS_ITS | Encounter Summary ---
Author Organization [facility] Address [address] [place] [address] Care Team Providers Care Engraver Set Up Operator Name Role Phone Peggy Gatica WARDROBE TECHNICIAN Unavailable [phone] Gerald Low MD Primary Care Provider [phone] Encounter Details Date Type Department Care Team (Late st Contact Info) Description 11/30/2024 Bamboo flowsheet [facility] [address] [place] [phone] Fahad Sears PA [address] [place] [address] Social History Tobacco Use Types Packs/Day Years [...] How often do you attend chur or church services? Patient declined 07/06/2024 Do you belong to any clubs o r organizations such as lutheran groups, unions, fraternal or athletic groups, or [...] Recorded Patient Health Questionnaire-2 Score 0 01/11/2024 [facility] Occupat ional Health - Occupational Stress [...] any time in the past [address] [facility], were you homeless or living [...] Visit [facility] [address] [place] [address] Tomeka Rosado NP [address] [place] [address] 03/29/2025 9:30 AM EDT Office Visit [facility] [address] [place] [phone] Fahad Sears, GEMA [address] [place] [address] [place] [address] documented as of this encounter Visit Diagnoses Not on filedocumented in this encounter Care Teams Engraver Set Up Operator Relationship Specialty Start Date End Date Gerald Low MD [address] [place] [phone] PCP - General Family Medicine 04/13/24 Peggy Gatica NP Nurse Practitioner Family Medicine 04/12/24 documented as of this encounter
--- OUTSIDE RECORDS SUMMARY | 2024-12-13 15:04 | XMS_ITS | Encounter Summary ---
Author Organization [facility] Address [address] [place] [address] Care Team Providers Care Warehouse Receiver Name Role Phone Peggy Gatica NP Unavailable [phone] Gerald Low MD Primary Care Provider [phone] Encounter Details Date Type Department Care Team (Late st Contact Info) Description 12/13/2024 Bamboo flowsheet [facility] [address] [place] [phone] Tomeka Rosado NP [address] [place] [address] Social History Tobacco Use Types Packs/Day Years Used Date Smoking Tobacco: Former Cigarettes 1 15 969 1983 Passive Smoke Exposure: Never Smokeless Tobacco: [...] How often do you attend chur or tenriism services? Patient declined 07/06/2024 Do you belong to any clubs o r organizations such as presybeterian groups, unions, [employer] or athletic groups, or school groups? No [...] Recorded Patient Health Questionnaire-2 Score 0 01/11/2024 [facility] - [facility]ational Stress Questionnaire Answer [...] place to sleep or slept in a fci (including now)? No 02/18/2023 Housing Stability Vital Sign Answer Saurav e Recorded In the last 12 months, was t here a time when you were not able to pay the mortgage or rent on time? No 07/06/2024 In the past 12 months, how m any times have you moved where you were living? 0 07/06/2024 At any time in the past 12 m [facility], were you homeless or living in a fci (including now)? No 07/06/2024 Sex and Gender [...] Visit [facility] [address] [place] [address] Tomeka Rosado NP [address] [place] [address] 03/29/2025 9:30 AM EDT Office Visit [facility] [address] [place] [phone] Fahad Sears, PA [address] [place] [address] documented as of this encounter Visit Diagnoses Not on filedocumented in this encounter Care Teams Warehouse Receiver Relationship Specialty Start Date End Date Gerald Low MD [address] [place] [phone] PCP - General Family Medicine 04/13/24 Peggy Gatica NP Nurse Practitioner Family Medicine 04/12/24 documented as of this encounter
--- OUTSIDE RECORDS SUMMARY | 2024-12-13 15:04 | XMS_ITS | Encounter Summary ---
Author Organization [facility] Address [address] [place] [address] Care Team Providers Care Registration Specialist Name Role Phone Shaikh MARY Ayala Primary Care Provider [phone] Renea Barajas DO Unavailable [phone] Peggy Gatica SCALE MANAGER Unavailable [phone] Gerald Low MD Primary Care Provider [phone] Renea Barajas DO Unavailable [phone] Encounter Details Date Type Department Care Team (Late st Contact Info) Description 12/31/2023 Clinisync Result Encounter [facility] External Department Unsolicited Provider, Generic External Data Social History Tobacco Use Types Packs/Day Years Used Date Smoking Tobacco: Former Cigarettes 1 15 9 - 1983 Passive Smoke Exposure: Never Smokeless [...] week 02/18/2023 How often do you attend pentecostal or rastafarian serv ices? Patient declined 02/18/2023 Do you belong to any clubs o r organizations such as pentecostal groups, unions, fraternal or athletic groups, or [...] Date Recorded Patient Health Questionnaire-2 Score 0 11/16/2023 [facility] - Occupational Stress Questionnaire Answer Date [...] place to sleep or slept in a [place] [facility] [place] (including now)? No 02/18/2023 Sex and Gender [...] Visit [facility] [address] [place] [address] Tomeka Rosado, ANJEL [address] [place] [address] 03/29/2025 9:30 AM EDT Office Visit [facility] [address] [place] [address] Fahad Sears PA [address] [place] [address] documented as of this encounter Procedures Procedure Name Priority Date/Time Associated Diagnosis Comments CT CHEST W IV CONTRAST 12/31/2023 7:19 AM EDT documented in this encounter Results * CT chest w IV contrast (12/31/2023 7:19 AM EDT) Anatomical Region Laterality Modality Body, Chest Computed Tomogra phy 12/31/2023 7:19 AM EDT Narrative 01/01/2024 9:17 PM EDT Interpreted By: Lul Villegas and Maltbie Grace STUDY: CT CHEST W IV CONTRAST; 12/31/2023 7:55 am INDICATION: Signs/Symptoms:LUNG NODULE. COMPARISON: CT chest abdomen pelvis 05/26/2023 ACCESSION NUMBER(S): [id number] ORDERING CLINICIAN: NEFTALI GARLAND TECHNIQUE: Helical data acquisition of the chest [...] new pulmonary nodule is seen. MEDIASTINUM AND ALEXANDREA, LOWER NECK AND AXILLA: A 2 mm [...] Morales MD. This study was interpreted at [facility], [place], [place]. Signed by: Lul Villegas 01/01/2024 9:17 PM Dictation workstation: [id number] Procedure Note Radiology, Radiologist, - 01/01/2024 Interpreted By: Lul Villegas and Maltbie Grace STUDY: CT CHEST W IV CONTRAST; 12/31/2023 7:55 am INDICATION: Signs/Symptoms:LUNG NODULE. COMPARISON: CT chest abdomen pelvis 05/26/2023 ACCESSION NUMBER(S): [id number] ORDERING CLINICIAN: NEFTALI GARLAND TECHNIQUE: Helical data acquisition of the chest [...] new pulmonary nodule is seen. MEDIASTINUM AND ALEXANDREA, LOWER NECK AND AXILLA: A 2 mm [...] Morales MD. This study was interpreted at [facility], [place], [place]. Signed by: Lul Villegas 01/01/2024 9:17 PM Dictation workstation: [id number] us Generic External Data Provider IMG CT PROCEDURES Final Result documented in this encounter Visit Diagnoses Not on filedocumented in this encounter Care Teams Registration Specialist Relationship Specialty Start Date End Date Shaikh Ayala MD [address] [place] [phone] PCP - General Internal Medicine 07/15/23 04/11/24 Renea Barajas DO [address] [facility] [address] [place] [phone] PCP - ACO Reach 08/14/23 07/21/24 Gerald Low MD [address] [place] [address] PCP - General Family Medicine 04/13/24 Renea Barajas DO [address] [facility] [address] [facility] [place] [phone] PCP - ACO Reach 07/29/24 09/15/24 Peggy Gatica NP [address] [facility] [address] [facility] [place] [address] Nurse Practitioner Family Medicine 04/12/24 documented as of this encounter
--- OUTSIDE RECORDS SUMMARY | 2024-12-13 15:04 | XMS_ITS | Clinical Summary ---
Author Organization [facility] Healthcare Address [address] [place] [address] Care Team Providers Care Front Services Agent Name Role Phone Peggy Gatica NP Unavailable [phone] Gerald Low MD Primary Care Provider [phone] Allergies Active Allergy Reactions Criticality Noted Date Comments Azithromycin Unknown 03/24/2018 Ciprofloxacin 11/24/2022 Other Reaction(s): ?change in mental status Erythromycin GI intolerance,Other 04/28/2023 Lisinopril Cough 11/24/2022 Medications fluticasone (Flonase) 50 MCG/ACT nasal spray Administer 2 sprays into each nostril in the morning. Active tamsulosin (Flomax) 0.4 MG 24 hr capsule Take 0.4 mg by mouth Daily Active bisoprolol (Zebeta) 10 MG tabletIndications: Primary hypertension TAKE 1 TABLET IN THE MORNING 90 tablet 3 10/14/19 24 Active furosemide (Lasix) 20 MG tabletIndications: Primary hypertension Take 1 tablet (20 mg) by mouth Daily 90 tablet 1 04/12/20 24 Active losartan (Cozaar) 100 MG tabletIndications: Primary hypertension Take 1 tablet (100 mg) by mouth Daily 90 tablet 1 04/12/20 24 Active rosuvastatin (Crestor) 20 MG tabletIndications: Mixed hyperlipidemia Take 1 tablet (20 mg) by mouth Daily 04/12/20 24 025 Active omeprazole (PriLOSEC) [address] capsuleIndications :Gastroesophageal reflux disease without esophagitis TAKE 1 CAPSULE IN THE MORNING BEFORE A MEAL (DO NOT CRUSH OR CHEW) 90 capsule 3 07/11/19 25 Active empagliflozin (Jardiance) 25 MGIndications:Stag e 3a chronic kidney disease ([facility]),Type 2 diabetes mellitus with stage 3a chronic kidney disease, without long-term current use of insulin ([facility]) Take 1 tablet (25 mg) by mouth Daily 90 tablet 1 08/24/19 25 025 Active amLODIPine (Norvasc) 10 MG tablet Take 5 mg by mouth Daily as needed Active glimepiride (Amaryl) 4 MG tabletIndications: Type 2 diabetes mellitus with stage 3a chronic kidney disease, without long-term current use of insulin ([facility]) Take 1 tablet (4 mg) by mouth in the morning. Take before meals. 90 tablet 1 10/12/19 25 025 Active glucose blood (FREESTYLE LITE) test stripIndications:T ype 2 diabetes mellitus without complication, unspecified whether group home insulin use ([facility]) 1 each by Other route Daily dailyUse as instructed 100 strip 3 10/20/19 025 Active allopurinol (Zyloprim) 300 MG tabletIndications: Gout, unspecified cause, unspecified chronicity, unspecified site Take 1 tablet (300 mg) by mouth Daily 90 tablet 1 11/04/19 25 025 Active amoxicillin-clavul anate (Augmentin) 875-125 MG tabletIndications: Diverticulitis Take 1 tablet (875 mg) by mouth in the morning and 1 tablet (875 mg) before bedtime. Do all this for 10 days. 20 tablet 11/29/19 25 025 Discontinu ed(Reorder ) amoxicillin-clavul anate (Augmentin) 875-125 MG tabletIndications: Diverticulitis Take 1 tablet (875 mg) by mouth in the morning and 1 tablet (875 mg) before bedtime. Do all this for 10 days. 20 tablet 11/29/19 25 025 Hospital, Clinic, or Other Facility Administered Medication Ordered Dose Route Frequency Start Date End Date Status bupivacaine PF (Marcaine) 0.5 % injection 2 mLIndications:Left rotator cuff tear arthropathy 2 mL IJ Once PRN Procedure 11/30/2024 11/30/2024 Ended methylPREDNISolone acetate (DEPO-Medrol) injection 40 mgIndications:Left rotator cuff tear arthropathy 40 mg IX Once PRN Procedure 11/30/2024 11/30/2024 Ended Active Problems Problem Noted Date Diagnosed Date LLQ pain 11/28/2024 Assessment & Plan (12/13/2024 7:07 AM EDT): Checked labs and xray at last appt Treated for suspected diverticulitis Assessment & Plan (11/28/2024 2:31 PM EDT): Abd xray Labs: cbc, sed rate, chem 14, UA w micro and urine culture Suspect diverticulitis Diverticulitis 11/28/2024 Assessment & Plan (12/13/2024 7:20 AM EDT): Treated with atb Class 1 obesity with serious comorbidity in adul t 10/10/2024 Assessment & Plan (12/13/2024 7:08 AM EDT): Discussed with patient their BMI (actual, verses recommended). We have also discussed lifestyle modifications: attempts to perform physical activity as chronic conditions allow, also to monitor dietary intake: increasing protein/fruits/veggies and lowering carb intake (unless contraindicated). Limit sodas, juices, and sugary drinks. Assessment & Plan (10/10/2024 6:19 AM EDT): Discussed with patient their BMI (actual, verses recommended). We have also discussed lifestyle modifications: attempts to perform physical activity as chronic conditions allow, also to monitor dietary intake: increasing protein/fruits/veggies and lowering carb intake (unless contraindicated). Limit sodas, juices, and sugary drinks. Screening for prostate cancer 10/10/2024 History of tobacco abuse 05/31/2024 Hypersomnia 05/31/2024 Frequent PVCs 10/12/2023 Overview (10/12/2023): Last Assessment & Plan: F/U with Dr San Leukemoid reaction 10/12/2023 Assessment & Plan (10/12/2023 11:08 AM EDT): WBC of 19 k on labs drawn at [facility] - recheck Left adrenal mass 08/11/2023 Assessment & Plan (01/11/2024 11:29 PM EDT): left adrenal mass, stable. Normal cortisone/metanephrines/aldosterone. 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 Check cortisone, aldosterone, metanephrine to make sure Adenoma is not functioning Abnormal nuclear stress test 07/15/2023 Assessment & Plan (07/15/2023 2:42 PM EST): Nuclear stress test 07/08 - perfusion defect in LAD distribution. Asymptomatic. Instructed to start using ASA. Patient scheduled for [facility] on 07/29/23 No prior hx of CAD Stage 3a chronic kidney disease 07/15/2023 Assessment & Plan (07/13/2024 8:56 AM EST): Stable. Follows with Nephrology. Most recent Creatinine 1.22,/ eGFR 58. Avoid Nephrotoxic Agents. Monitor closely. Assessment & Plan (04/12/2024 9:02 AM EDT): Stable. Most recent Creatinine 1.18,/ eGFR 65. Avoid Nephrotoxic Agents. Monitor closely. 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 Start patient on Jardiance. Stop Actose. Encounter to establish care with new doctor 06/17 Assessment & Plan (07/15/2023 2:48 PM EST): New Patient, here to establish care. Reviewed medical, surgical and social hx. Reviewed available old records. Reviewed and updated medication list. New Patient for this practice. Was previously established with Dr Barajas but had to switch since she moved to [facility]. Abnormal electrocardiogram (ECG) (EKG) Overview (07/15/2023): Last Assessment & Plan: Frequent PVCs, bigemeny, NSVT Near syncope 07/10/2023 Overview (07/15/2023): Last Assessment & Plan: Recently admitted to [facility] for near syncope, bradycardia, abnormal stress test with NSVT while on treamill. Frequent PVCS NSVT (nonsustained ventricular tachycardia) 06/16 Overview (07/15/2023): Last Assessment & Plan: 4 beat NSVT noted on treadmill stress test- ordered cardiac cath for further ischemia evaluation with recent near syncope, abnormal EKG and stress test, chest pain Assessment & Plan (07/15/2023 2:41 PM EST): Scheduled for [facility] in July. Patient is currently asymptomatic. Instructed to go to ED if he develops any symptoms concerning for active cardiac ischemia On bisoprolol. Instructed to start using ASA. Renal cyst, left 06/29/2023 Assessment & Plan (07/15/2023 2:47 PM EST): Increased in size on CT 06/06 - repeat US. Refer to Urology. Has an appointment with Dr Mcfarland in November. Nodule of lower lobe of left lung 06/29/2023 Overview (06/29/2023): repeat CT scan in 6 months Assessment & Plan (07/15/2023 2:40 PM EST): Repeat CT chest in 09/05. Former smoker. Reason for CT chest is to ensure nodule is stable. 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 S/p resection. In remission. Following Oncology. Yearly EGD next due 06/07. Left renal cyst - increased in size. Has Urology appointment in November -- ordered US kidney. Will try to get him in sooner. Adrenal mass 2 cm - stable, unchanged. Will address next appointment Pulm nodule - repeat CT chest planned in 09/05. Anemia 02/24/2023 Absolute anemia 02/24/2023 Allergic rhinitis 02/24/2023 Balance problem 02/24/2023 Benign prostatic hyperplasia with lower urinary tract symptoms 02/24/2023 Assessment & Plan (10/10/2024 9:23 AM EDT): Currently taking tamsulosin Follows with urology Chronic sinusitis 02/24/2023 Type 2 diabetes mellitus wit h kidney complication, without long-term current use of insulin 02/24/2023 Assessment & Plan (12/13/2024 7:20 AM EDT): Check blood sugars daily, notify if <70 [...] meds: jardiance, gimepiride, statin A1c 7.0% 11/28/24 Assessment & Plan (10/10/2024 9:18 AM EDT): Check blood sugars daily, notify if <70 [...] simple sugars. Current meds: jardiance, gimepiride, statin A1c: will order Assessment & Plan (07/13/2024 9:01 AM EST): Currently taking glimeperide 4mg Jardiance 25mg Most recent labs: hemoglobin A1C 7.7% Increase from 7.2%. Average FSBS range from BGs range between [...] persistent hypoglycemia/hyperglycemia on home glucose monitoring noted. Assessment & Plan (04/12/2024 10:57 AM EDT): Currently taking glimeperide 4mg Jardiance 25mg Most [...] persistent hypoglycemia/hyperglycemia on home glucose monitoring noted. Assessment & Plan (01/11/2024 11:27 PM EDT): Most recent labs: hemoglobin A1C 6.2 2/24 Average FSBS range from BGs consistently in an acceptable range Hypoglycemia whenever he was fasting for labs or a procedure - explained to the patient that if he is intending to fast, he should not take glimepiride. No medication adverse effects reported by the patient. C/w jardiance, glimepiride. Check A1C Assessment & Plan (10/12/2023 11:08 AM EDT): Most recent labs: hemoglobin A1C 6.2 08/08 Average FSBS range from BGs consistently in an acceptable range No episode of hypoglycemia No medication adverse [...] persistent hypoglycemia/hyperglycemia on home glucose monitoring noted. C/w jardiance, glimepiride. Assessment & Plan (08/11/2023 10:08 AM EST): Most recent labs: hemoglobin A1C 6.9 Average FSBS range from BGs consistently in an acceptable range No episode of hypoglycemia No medication adverse [...] persistent hypoglycemia/hyperglycemia on home glucose monitoring noted. Last appt, actose was discontinued and he was started on jardiance. Doing well on it. Denies adverse effects. Check A1C. Assessment & Plan (07/15/2023 2:47 PM EST): Last A1C 6.9 On glimepiride. Stop actose. Started on jardiance. Patient counseled and educated on adverse effects, drug interactions and to reach out to office/pharmacy if questions or concerns related to new medications. Hypoglycemia 02/24/2023 Diverticulosis of sigmoid colon 02/24/2023 Assessment & Plan (11/28/2024 2:31 PM EDT): Augmentin BID for 10 days Check labs and xray Fu in 2 weeks Advised of s/s of need for ER Esophageal dysphagia 02/24/2023 Gastroesophageal reflux disease 02/24/2023 Assessment & Plan (10/10/2024 6:15 AM EDT): Recommendations: freq small meals, nothing to eat or drink at least 2 hours prior to bed, limit caffeine, alcohol, as well as spicy foods Meds to limit or avoid if possible: NSAIDS Elevate HOB if possible Current med: omeprazole Assessment & Plan (07/15/2023 2:45 PM EST): On omeprazole. C/w same. Fall 02/24/2023 Left rotator cuff tear arthropathy 02/24/2023 Assessment & Plan (04/12/2024 10:55 AM EDT): [address] [place] [address] ortho told him he needed revision. Declined. Was given cortisoioine injection. Would like to have agin. Needs to establish with new orttho;. Referral sent to ortho Obesity (BMI 30-39.9) 02/24/2023 Assessment & Plan (04/12/2024 10:55 AM EDT): Discussed with patient their BMI (actual, verses recommended). We have also discussed lifestyle modifications: attempts to perform physical activity as chronic conditions allow, also to monitor dietary intake: increasing protein/fruits/veggies and lowering carb intake (unless contraindicated). Limit sodas, juices, and sugary drinks. Also discussed oral medications that can be utilized for weight loss, as well as surgical options for weight loss. Other chronic pain 02/24/2023 Pain in right knee 02/24/2023 Pityriasis rosea 02/24/2023 Slow transit constipation 02/24/2023 Tubular adenoma of colon 02/24/2023 Diabetic polyneuropathy asso ciated with type 2 diabetes mellitus 11/24/2022 Assessment & Plan (10/10/2024 9:17 AM EDT): Freq foot checks proper fitting shoes, socks Primary hypertension 11/24/2022 Assessment & Plan (10/10/2024 6:15 AM EDT): Please check blood pressure daily and record DASH diet Limit caffeine Take medication as directed Contact office if chest pain, pressure, dizziness, shortness of breath, swelling legs Recommend slow position changes Current meds: bisoprolol, amlodipine prn Assessment & Plan (07/13/2024 8:49 AM EST): Currently taking bisoprolol 5mg BID Losartan 100mg Furosemide 20mg Cardiology manages very closely. Checks BP at home; Averages are 130/85. Denies orthostatic changes, dizziness, cough, shortness of breath, swelling in extremities. Continue current regime as directed by Cardiology Given BP log, advised pt to record BP and bring log back with them to next visit. Assessment & Plan (04/12/2024 9:01 AM EDT): Currently taking bisoprolol 10mg BID Losartan 100mg Checks BP at home; Averages are 130/85. Denies orthostatic changes, dizziness, cough, shortness of breath, swelling in extremities. Continue current regimen. Given BP log, advised pt to record BP and bring log back with them to next visit., Assessment & Plan (01/11/2024 11:25 PM EDT): At goal now. Tolerating Anti hypertensive w/o adverse effects. On Losartan, Bisoprolol. Patient encouraged to continue with home BP monitoring and call office if he experiences orthostatic symptoms or persistently elevated BP. Assessment & Plan (10/12/2023 11:07 AM EDT): At goal now. Tolerating Anti hypertensive w/o adverse effects. On Losartan, Bisoprolol. Patient encouraged to continue with home BP monitoring and call office if he experiences orthostatic symptoms or persistently elevated BP. Norvasc was previously discontinued Assessment & Plan (08/11/2023 10:11 AM EST): Too tightly controlled with periods of orthostasis. Tolerating Anti hypertensive w/o adverse effects. Denies lightheadedness, dizziness, syncope, presyncope. On Losartan, Bisoprolol. Discontinue Norvasc. Patient encouraged to continue with home BP monitoring and call office if he experiences orthostatic symptoms or persistently elevated BP. Assessment & Plan (07/15/2023 2:40 PM EST): BP well controlled. On average less than 130/90. Tolerating Anti hypertensive w/o adverse effects. Denies lightheadedness, dizziness, syncope, presyncope. Patient encouraged to continue with home BP monitoring and call office if he experiences orthostatic symptoms or persistently elevated BP. On Losartan, Bisoprolol. C/w same. Mixed hyperlipidemia 11/24/2022 Assessment & Plan (10/10/2024 6:18 AM EDT): On statin therapy Check labs yearly and prn dose changes Assessment & Plan (07/13/2024 8:55 AM EST): Currently taking Rosuvastatin 20mg Cardiology Manages Denies any myalgias. Most recent Lipid Panel done 03/2024- WNL. Continue current regimen. Assessment & Plan (04/12/2024 9:01 AM EDT): Currently taking Rosuvastatin 20mg Cardiology Manages Denies any myalgias. Check Lipid Panel Continue current regimen. Neuroendocrine carcinoma 11/28/2020 Arthritis Resolved Problems Problem Noted Date Diagnosed Date Resolved Date URTI (acute upper respiratory infection) 11/16/2023 12/13/2024 Pneumonia of left lower lobe due to infectious organism 10/12/2023 10/10/2024 Assessment & Plan (10/12/2023 11:06 AM EDT): Left lower lobe infiltrate on CXR, mild resp symptoms including cough. He presented to ED for fever. Will start patient on Doxycycline and treat for bacterial PNA. Accelerated hypertension 02/24/2023 Morbid obesity 11/24/2022 10/10/2024 Diabetes mellitus type 2 in obese 06/24/2021 10/10/2024 Encounters Date Type Department Care Team Description 12/13/2024 2:00 PM EDT Office Visit [facility] [address] [place] [address] Tomeka Rosado NP LLQ pain (Primary Dx); Primary malignant neuroendocrine neoplasm of duodenum (HCC); Class 1 obesity due to excess calories with serious comorbidity in adult, unspecified BMI; Type 2 diabetes mellitus with stage 3a chronic kidney disease, without long-term current use of insulin (HCC); Diverticulitis 12/13/2024 Bamboo flowsheet [facility] [address] [place] [address] Tomeka Rosado, ACTIVITY LEADER 12/06/2024 Travel 11/30/2024 9:30 AM EDT Office Visit [facility] [address] [place] [address] Fahad Sears, PA Acute pain of left shoulder (Primary Dx); Left rotator cuff tear arthropathy; Arthritis of left shoulder 11/30/2024 Bamboo flowsheet [facility] [address] [place] [address] Fahad Sears PA 11/30/2024 Travel 11/28/2024 2:00 PM EDT Office Visit [facility] [address] [place] [address] Tomeka Rosado, ACTIVITY LEADER LLQ pain (Primary Dx); Diverticulosis of sigmoid colon; Diverticulitis 11/28/2024 External Result Encounter [facility] External Department Unsolicited Tomeka Rosado, ACTIVITY LEADER 11/28/2024 Telephone [facility] [address] [place] [address] Tomeka Rosado, ACTIVITY LEADER 11/28/2024 Clinisync Result Encounter [facility] External Department Unsolicited Tomeka Rosado, ACTIVITY LEADER 11/28/2024 Clinisync Result Encounter [facility] External Department Unsolicited Tomeka Rosado, ACTIVITY LEADER 11/28/2024 Bamboo flowsheet [facility] [address] [place] [address] Tomeka Rosado, ANJEL 11/28/2024 Travel 11/23/2024 Travel 11/03/2024 Refill [facility] [address] [place] [place] [phone] Tomeka Rosado NP Gout, unspecified cause, unspecified chronicity, unspecified site (Primary Dx) 11/03/2024 Telephone [facility] [address] [place] [phone] Tomkea Rosado NP 10/19/2024 Refill [facility] [address] [place] [id number] Tomeka Rosado NP Type 2 diabetes mellitus without complication, unspecified whether group home insulin use (HCC) 10/11/2024 Refill [facility] [address] [place] [address] Gerald Low MD Type 2 diabetes mellitus with stage 3a chronic kidney disease, without long-term current use of insulin (HCC) 10/10/2024 8:40 AM EDT Office Visit [facility] [address] [place] [id number] Tomeka Rosado NP Type 2 diabetes mellitus with stage 3a chronic kidney disease, without long-term current use of insulin (HCC) (Primary Dx); Gastroesophageal reflux disease without esophagitis; Primary malignant neuroendocrine neoplasm of duodenum (HCC); Benign prostatic hyperplasia with lower urinary tract symptoms, symptom details unspecified; Obesity (BMI 30-39.9); Morbid obesity ([facility]); Gout, unspecified cause, unspecified chronicity, unspecified site; Mixed hyperlipidemia ; Class 1 obesity due to excess calories with serious comorbidity in adult, unspecified BMI; Screening for prostate cancer; Diabetic polyneuropathy associated with type 2 diabetes mellitus (HCC); Primary hypertension 10/10/2024 Bamboo flowsheet [facility] [address] [place] [id number] Tomeka Rosado NP 10/03/2024 Travel from Last 3 Months Immunizations Immunization Administration Dates Next Due Influenza, High Dose Seasona l, Preservative Free 03/09/2019,04/09/2018,05/18/2017 Influenza, High-dose Seasona l, Quadrivalent, Preservative Free 03/20/2023,03/27/2022,03/01/2021,02/23 Influenza, seasonal, injecta ble, preservative free 03/13/2016,03/28/2015 Influenza, trivalent, adjuvanted 04/05/2024 Novel [id number], preservative-free 08/06/2009 Pneumococcal Conjugate PCV 13 11/22/2018, 018 Pneumococcal Polysaccharide PPSV23 02/24/2023, RSV, recombinant, protein lopez bunit RSVpreF, adjuvant reconstitu, 120mcg/0.5mL, PF (Arexvy) 05/24/2024 TD (adult), 2 Lf tetanus tox oid, preservative free, adsorbed 10/27/2018 Tdap 10/27/2018,03/14/2011 Zoster, live 05/24/2016,05/15/2016 Family History Medical History Relation Name Comments Cancer Brother Henry [facility] Meniere's disease Brother Henry [facility] multinodular goiter Brother Carrington Diabetes Father Carrington Hearing loss Father Carrington Heart disease Father Carrington Hypertension Father Carrington Heart disease Mother Yasmin Heart failure Mother Yasmin Breast cancer Sister Diabetes Son Artem Relation Name Status Comments Brother Carrington x2 Father [place] Mother Yasmin Sister Son Artem Alive x2 Social History Tobacco Use Types Packs/Day Years Used Date Smoking Tobacco: Former Cigarettes 1 15 [phone] - 1983 Passive Smoke Exposure: Never Smokeless Tobacco: Never Tobacco Cessation:Counseling Given: No Alcohol Use Standard Drinks/Week Comments Yes 0 [...] How often do you attend chur or evangelical services? Patient declined 07/06/2024 Do you belong to any clubs o r organizations such as mandaen groups, unions, fraternal or athletic groups, or [...] Patient Health Questionnaire-2 Score 0 01/11/2024 [facility] - [...] place to sleep or slept in a alf (including now)? No 02/18/2023 Housing Stability Vital Sign Answer Saurav e Recorded In the last 12 months, was t here a time when you were not able to pay the mortgage or rent on time? No 07/06/2024 In the past 12 months, how m any times have you moved where you were living? 0 07/06/2024 At any time in the past 12 m [facility], were you homeless or living in a alf (including now)? No 07/06/2024 Sex and Gender Information Value Date Recorded Sex Assigned at Not on file Legal Sex Male 7:35 PM EDT Gender Identity Male 08/27/2022 7:35 PM EDT Sexual Orientation Not on file Last Filed [...] kg (225 lb 12.8 oz) 12/13/2024 2:05 P M EDT Height 177.8 cm (5' 10 ) 07/13/2024 8:29 AM EST Body Mass Index 32.4 07/13/2024 8:29 AM EST Plan of Treatment Upcoming Encounters Date Type Department Care Team (Late st Contact Info) Description 01/09/2025 8:40 AM EDT Office Visit [facility] [address] [place] [address] Tomeka Rosado NP [address] [place] [address] 03/29/2025 9:30 AM EDT Office Visit [facility] [address] [place] [phone] Fahad Sears, PA [address] [place] [address] Health Maintenance Due Date Last Done Comments CT Colonography 1949 FIT-DNA 1949 FIT 1950 FOBT 1950 Sigmoidoscopy 1950 Influenza Vaccine (#1) 2025 4, 03/20/2023, 03/27/2022, Additional history exists Diabetes: Hemoglobin A1C 02/28/202511/28/2 025, 07/13/2024, 01/13/2024, Additional history exists Diabetes: Retinopathy Screening 08/17/2025 4, 07/08/2018 Diabetes: Urine Protein Screening 11/28/2025 11/28/2024, 05/16/2020, 01/26/2019 Colonoscopy 11/28/2030 11/28/2020, 11/13, 07/14/2014 Colorectal Cancer Screening 11/28/2030 Pneumococcal Vaccine: 65+ Years Completed 02/24/2023, 11/22/2018, 05/21/2018, Additional history exists Procedures Procedure Name Priority Date/Time Associated Diagnosis Comments [place] ARTHROCENTESIS ASPIR&/INJ MAJOR JT/BURSA W/US Routine 11/30/2024 10:18 AM EDT Left rotator cuff tear arthropathy XR ABDOMEN 1V 11/28/2024 4:17 PM EDT ALL URIC ACID Routine 11/28/2024 3:08 PM EDT [facility] CMP (CMP) (FOR REMOTE [facility] USE) Routine 11/28/2024 3:08 PM EDT MLR HEMOGLOBIN A1C Routine 11/28/2024 3: 08 PM EDT ALL SED RATE Routine 11/28/2024 3:08 PM EDT ALL CBC WITH AUTO DIFF Routine 3:08 PM EDT TBH MICROALB CREAT RATIO RANDOM Routine 11/28/2024 2:55 PM EDT TB[facility] UA (CLEAN/CATCH) MICROSCOPIC IF INDICATE Routine 11/28/2024 2:55 PM EDT [place] [facility] [place] Routine 11/28/2024 2:55 PM EDT CULTURE, URINE, ROUTINE Routine 11/28/2024 2:55 PM EDT POCT GLYCOSYLATED HEMOGLOBIN (HGB A1C) Routine 07/13/2024 9:01 AM EST Type 2 diabetes mellitus with stage 3a chronic kidney disease, without long-term current use of insulin (HCC) COLONOSCOPY Routine 11/28/2020 12:00 PM EDT MICROALBUMIN / CREATININE URINE RATIO Routine 05/16/2020 COLOR FUNDUS PHOTOGRAPHY - OU - BOTH EYES Routine 07/08/2018 12:00 PM EST from Last 3 Months or Most Recently Relevant to Health Maintenance Results * IL ARTHROCENTESIS ASPIR&/INJ MAJOR JT/BURSA W/US (11/30/2024 10:18 [...] neurovascular intact s/p injection. . ( Codes 44865) Procedure, treatment alternatives, risks and benefits explained, specific risks discussed. Consent was given by the patient. Patient was prepped and draped in the usual sterile fashion. us Fahad RIBEIRO IN CLINIC/BEDSIDE ORDERABLES Final Result * XR ABDOMEN 1V (11/28/2024 4:17 PM EDT) Anatomical Region Laterality Modality Other 11/28/2024 4:17 PM EDT Narrative 11/28/2024 4:20 PM EDT The [address] [address] XRay Report Signed Patient: BRENT CAR MR#: [id number] : 1950 Acct:[id number] Age/Sex: 74 / M ADM Date: 11/28/24 Loc: LAB Attending Dr: Tomeka Rosado NP Ordering Physician: Tomeka Rosado NP Date of Service: 11/28/24 Procedure(s): XR abdomen 1V Accession Number(s): [id number] cc: Tomeka Rosado NP The [address] [address] Patient Name: BRENT CAR MRN: [facility]:[id number] date: 1950 Sex: M Assigned Patient Location: LAB Current Patient Location: LAB Accession/Order Number: [id number] Exam Date: 11/28/2024 16:16 Report Date: 11/28/2024 16:17 At the request of: TOMEKA ROSADO NP Procedure: XR abdomen 1V XR abdomen 1V 11/28/2024 3:23 PM SIGNS AND SYMPTOMS: LEFT LOWER QUADRANT PAIN PROTOCOL: Frontal radiographs of the abdomen and pelvis COMPARISON: 06/03/2021 FINDINGS: There is a nonobstructive bowel gas pattern. There is a moderate amount stool throughout colon. No radiodense renal, ureteral, or bladder stones. Surgical clips are present in the right upper quadrant consistent with prior cholecystectomy. Degenerative changes are noted in the thoracolumbar spine. XR/XR abdomen 1V IMPRESSION: No bowel obstruction or free air. No radiodense renal, ureteral, or bladder stones. Impression dictated by: Jose A Gallardo M.D. 11/28/2024 4:17 PM Dictation Location: [place] [address] Electronically authenticated by: [id number] Y Date: 11/28/2024 16:17 Dictated By: Jose A Gallardo M.D. Signed By: 11/28/24 1620 DD/ 1617 TD/TT: Headmaster/Mistress: Procedure Note Radiology, Radiologist, MD - 11/28/[address] [address] XRay Report Signed Patient: BRENT CAR FMR#: [id number] : 1950cct:[id number] Age/Sex: 74 / MADM Date: 11/28/24 Loc: LAB Attending Dr: Tomeka Rosado NP Ordering Physician: Tomeka Rosado NP Date of Service: 11/28/24 Procedure(s): XR abdomen 1V Accession Number(s): [id number] cc: Tomeka Rosado NP The [place] [address] Patient Name: BRENT CAR MRN: [facility]:[id number] date: 1950 Sex: M Assigned Patient Location: LAB Current Patient Location: LAB Accession/Order Number: [id number] Exam Date: 11/28/2024 16:16 Report Date: 11/28/2024 16:17 At the request of: TOMEKA ROSADO NP Procedure: XR abdomen 1V XR abdomen 1V 11/28/2024 3:23 PM SIGNS AND SYMPTOMS: LEFT LOWER QUADRANT PAIN PROTOCOL: Frontal radiographs of the abdomen and pelvis COMPARISON: 06/03/2021 FINDINGS: There is a nonobstructive bowel gas pattern. There is a moderate amountstool throughout colon. No radiodense renal, ureteral, or bladder stones.Surgical clips are present in the right upper quadrant consistent with prior cholecystectomy. Degenerative changes are noted in the thoracolumbarspine. XR/XR abdomen 1V IMPRESSION: No bowel obstruction or free air. No radiodense renal, ureteral, or bladder stones. Impression dictated by: Jose A Gallardo M.D. 11/28/2024 4:17 PM Dictation Location: [place] [address] Electronically authenticated by: [id number] Y Date: 6:17 Dictated By: Jose A Gallardo M.D. Signed By:11/28/24 1620 DD/ 1617 TD/TT: Headmaster/Mistress: Tomeka Rosado NP [facility] Final Result * (ABNORMAL) MLR HEMOGLOBIN A1C (11/28/2024 3:08 PM EDT) GLYCOHEMOGLOBIN A1C 7.0(H) 4.5 - 6.2 % [facility] Comment: ADA RECOMMENDED LIMIT 4.0 - 6.0 ADA THERAPEUTIC TARGET < 7.0 ACTION SUGGESTED > 7.0 ESTIMATED AVERAGE GLUCOSE 154 mg/dL TB 11/28/2024 3:08 PM EDT 11/28/2024 3:10 PM EDT Narrative CLINISYNC - 11/28/2024 4:02 PM EDT us Tomeka Rosado NP CLINISYNC Final Result CLINISYNC TBH * (ABNORMAL) CCF CMP (CMP) (FOR REMOTE [facility] USE) (11/28/2024 3:08 PM EDT) SODIUM 140 136 - 145 mmol/L TBH POTASSIUM 4.1 3.5 - 5.1 mmol/L TBH CHLORIDE 103 98 - 107 mmol/L TBH CARBON DIOXIDE 24.5 21.0 - 32.0 mmol/L TBH ANION GAP 16.6 TBH GLUCOSE 218(H) 74 - 106 mg/dL TBH BLOOD UREA NITROGEN 25.0(H) 7.0 - 18.0 mg/dL TBH CREATININE 1.34(H) 0.70 - 1.30 mg/dL TBH TBH EGFR-AF ISRAELI >60 >=60 mL/min/1. 73m 2 TBH TBH EGFR-NON AF ISRAELI 52(L) >=60 mL/min/1. 73m 2 TBH BUN CREATININE RATIO 18.7 TBH CALCIUM 9.3 8.5 - 10.1 mg/dL TBH BILIRUBIN TOTAL 0.4 0.2 - 1.0 mg/dL TBH ASPARTATE AMINO TRANSFERASE 13(L) 15 - 37 U/L TBH ALANINE AMINOTRANSFERASE 19 16 - 63 U/L TBH ALKALINE PHOSPHATASE 118(H) 46 - 116 U/L TBH TOTAL PROTEIN 7.4 6.4 - 8.2 g/dL TBH ALBUMIN LEVEL 3.4 3.4 - 5.0 g/dL TBH GLOBULIN 4.0 g/dL TBH ALBUMIN GLOBULIN RATIO 0.9 TBH 11/28/2024 3:08 PM EDT 11/28/2024 3:10 PM EDT Narrative CLINISYNC - 11/28/2024 4:02 PM EDT us Tomeka Rosado NP CLINISYNC Final Result CLINISYNC TBH * ALL URIC ACID (11/28/2024 3:08 PM EDT) [facility] URIC ACID 3.9 3.5 - 7.2 mg/dL TB 11/28/2024 3:08 PM EDT 11/28/2024 3:10 PM EDT Narrative CLINISYNC - 11/28/2024 4:02 PM EDT Tomeka Alonzo ACTIVITY LEADER CLINISYNC Final Result CLINISYNC TB * (ABNORMAL) ALL SED RATE (11/28/2024 3:08 PM EDT) [facility] SED RATE 89(H) <=20 mm/hr TB 11/28/2024 3:08 PM EDT 11/28/2024 3:10 PM EDT Narrative CLINISYNC - 11/28/2024 3:30 PM EDT Tomeka Rosado NP CLINISYNC Final Result CLINISYNC TB * (ABNORMAL) ALL CBC WITH AUTO DIFF (11/28/2024 3:08 PM EDT) [facility] WBC 10.1 4.0 - 11.0 10 3/uL TBH TB RBC 4.98 4.70 - 6.10 10 6/uL TBH TB HGB 14.5 14.0 - 18.0 g/dL TB TB HCT 44.0 42.0 - 54.0 % TBH TBH MCV 88.4 80.0 - 94.0 fL TB TB MCH 29.1 25.9 - 34.0 pg TBH TBH MCHC 33.0 29.9 - 35.2 g/dL TB TB RDW 16.2(H) 11.0 - 15.0 % TBH TBH PLT 392 150 - 450 10 3/uL TBH TB MPV 10.1 9.5 - 13.5 fL TB NEUTROPHILS PERCENT AUTO 78.4(H) 43.0 - 75.0 % TBH LYMPHOCYTES PERCENT AUTO 13.3(L) 20.5 - 60.0 % TBH MONOCYTES PERCENT AUTO 6.9 1.7 - 12.0 % TBH TBH EO % 0.9 0.9 - 7.0 % TBH BASOPHILS PERCENT AUTO 0.2 0.2 - 2.0 % TBH IMMATURE GRANULOCYTES PCT AUTO 0.3 0.0 - 0.5 % TBH NEUTROPHILS ABSOLUTE AUTO 7.9(H) 1.4 - 6.5 10 3/uL TBH LYMPHOCYTES ABSOLUTE AUTO 1.3 1.2 - 3.8 10 3/uL TBH MONOCYTES ABSOLUTE AUTO 0.7 0.3 - 0.8 10 3/uL TBH TBH EO # 0.1 0.0 - 0.7 10 3/uL TBH BASOPHILS ABSOLUTE AUTO 0.0 0.0 - 0.1 10 3/uL TBH IMMATURE GRANULOCYTES ABS AUTO 0.03 0.00 - 0.03 10 3/uL TBH 11/28/2024 3:08 PM EDT 11/28/2024 3:10 PM EDT Narrative CLINISYNC - 11/28/2024 3:26 PM EDT us Tomeka Rosado NP CLINISYRI Final Result Performing Organization Address City/[facility]/ZIP Co de Phone Number CLINISYNC [facility] * [place] [facility] [place]11/28/2024 2:55 PM EDT) [facility] [place]URE - [facility] [place] Culture [place] [facility] [place] No Growth 2 Days [facility] URINE [facility]ULTURE - [facility] [place]INE CULTURE - [facility] [place] Testing performed at [facility] [place]URE [facility] [place] [address] [place] [address] [facility] 11/28/2024 2:55 PM EDT 11/28/2024 3:11 PM EDT Narrative CLINISYNC - 12/01/2024 11:22 AM EDT us Tomeka Rosado ACTIVITY LEADER LAB BLOOD ORDERABLES Final Resu lt CLINISYNC TB * (ABNORMAL) TBH UA (CLEAN/CATCH) MICROSCOPIC IF INDICATE (11/28/2024 2:55 PM EDT) [facility] COLOR URINE LT. YELLOW YELLOW TBH CLARITY URINE CLEAR CLEAR TBH SPECIFIC GRAVITY URINE 1.010 1.005 - 1.025 TBH PH URINE 6.0 5.0 - 9.0 TBH PROTEIN URINE NEGATIVE NEG/TRACE mg/dL TBH GLUCOSE URINE UA >=1000(A) NEGATIVE mg/dL TBH BILIRUBIN URINE NEGATIVE NEGATIVE TBH KETONES URINE NEGATIVE NEGATIVE mg/dL TBH BLOOD URINE NEGATIVE NEGATIVE TBH NITRITE URINE NEGATIVE NEGATIVE TBH UROBILINOGEN URINE 0.2 0.2 - 1.0 EU/dL TBH LEUKOCYTE ESTERASE URINE NEGATIVE NEGATIVE TBH URINE MICROSCOPIC INDICATED NO TBH 11/28/2024 2:55 PM EDT 11/28/2024 3:11 PM EDT Narrative CLINISYRI - 11/28/2024 3:38 PM EDT Tomeka Rosado NP CLINISYRI Final Result Performing Organization Address [facility] de Phone Number [facility] * TB MICROALB CREAT RATIO RANDOM (11/28/2024 2:55 PM EDT) [facility] MICROALBUMIN URINE RANDOM 1.5 <=30.0 mg/dL TB CREATININE URINE RANDOM 58.76 20.00 - 300.00 mg/dL TB MICROALBUM CREATININE RATIO UR 25.5 0.0 - 29.9 mg/g TB Comment: NO MICROALBUMINURIA 0-29 MG/G CLINICAL MICROALBUMINURIA 30-300 MG/G MACROALBUMINURIA >300 MG/G 11/28/2024 2:55 PM EDT 11/28/2024 3:11 PM EDT Narrative CLINISYRI - 11/28/2024 4:02 PM EDT Tomeka Rosado NP CLINISYRI Final Result Performing Organization Address [facility] de Phone Number [facility] * Urine culture (11/28/2024 2:55 PM EDT) Pathologist [facility] NOTE No Growth 2 Days 12/01/2024 10:41 AM EDT [facility] Urine Urine specimen obtained by clean catch procedure / Unknown 11/28/2024 2:55 PM EDT 11/29/2024 1:35 PM EDT Comment:Not Otherwise Specif ied Tomeka Rosado NP LAB MICROBIOLOGY - GENERAL ORDIris BUTCHER Final Result [facility] [address] [place] [address], [facility] [address] [place] [address] * (ABNORMAL) POCT glycosylated hemoglobin (Hb A1C) docked device (07/13/2024 9:01 AM EST) [facility] Hemoglobin A1C 7.7 Blood Venous blood specimen / Unknown 07/13/2024 9:01 AM EST Peggy Gatica NP POINT OF CARE TE ST ENTER/EDIT ORDERABLES Edited Result - Final * Colonoscopy (11/28/2020 12:00 PM EDT) Anatomical Region Laterality Modality Endoscopy 11/28/2020 12:0 0 PM EDT Narrative 11/28/2020 12:00 PM EDT PERFORMED AT [facility] LOCATION:[id number] See Scanned Results Procedure Note CONVERSION, GENERIC - 10/29/2022 PERFORMED AT [facility] LOCATION:[id number] See Scanned Results Renea Barajas DO ENDOSCOPY PROCEDURE ORDERABLES Final Result * (ABNORMAL) Microalbumin / creatinine urine ratio (05/16/2020) [facility] UCREA 33(L) 39 - 259 [facility] MALB <1.2(L) [facility] Comment: Unable to calculate mALB/Crea ratio, mALB is <1.2 mg/dL mALB reference range not established. 05/16/2020 us Yash Schmitz ACTIVITY LEADER LAB URINE ORDERABLES Final Re sult [facility] * Color Fundus Photography - OU - Both Eyes (07/08/2018 12:00 PM EST) Anatomical Region Laterality Modality Head Fundus Photograp hy 07/08/2018 12:0 0 PM EST Narrative 07/08/2018 12:00 PM EST PERFORMED AT [facility] LOCATION:[id number] Procedure Note CONVERSION, GENERIC - 10/29/2022 PERFORMED AT [facility] LOCATION:[id number] Aime Steele OPHTH PHOTOGRAPHY Final Result from Last 3 Months or Most Recently Relevant to Health Maintenance Insurance MEDICARE [facility] Advance Directives Healthcare Agents on File Name Relationship Healthcare Agent [facility] p Communication Zoe Car Spouse Health Care Agent [email or web address] Care Teams Front Services Agent Relationship Specialty Start Date End Date Gerald Low MD [address] [place] [phone] PCP - General Family Medicine 04/13/24 Peggy Gatica NP Nurse Practitioner Family Medicine 04/12/24
--- OUTSIDE RECORDS SUMMARY | 2024-12-13 15:04 | XMS_ITS | Encounter Summary ---
Author Organization [facility] Address [address] [place] [address] Care Team Providers Care Cash Checker Name Role Phone Renea Barajas DO Primary Care Provider [phone] Shaikh MARY Ayala Primary Care Provider [phone] Renea Barajas DO Unavailable [phone] Peggy Gatica LIGHT OUT EXAMINER Unavailable [phone] Gerald Low MD Primary Care Provider [phone] Renea Barajas DO Unavailable [phone] Encounter Details Date Type Department Care Team (Late st Contact Info) Description 12/02/2022 Abstract [facility] [address] [place] [phone] Renea Barajas DO [address] [address] Social History Tobacco Use Types Packs/Day Years Used Date Smoking Tobacco: Former Cigarettes Smokeless Tobacco: Never Alcohol Use Standard Drinks/Week Comments Yes 0 (1 standard drink = 0.6 oz pur e alcohol) AUDIT-C Answer Date Recorded Q1: How often do you have a drink containing alc ohol? Monthly or less 11/24/2022 Q2: How many drinks containi ng alcohol do you have on a typical day when you are drinking? 1 or 2 11/24/2022 Q3: How often do you have si x or more drinks on one occasion? Never 11/24/2022 PHQ-2 Answer Date Recorded Patient Health Questionnaire-2 Score 0 11/24/2022 Sex and Gender Information Value Date Recorded Sex Assigned at Not on file Legal Sex Male 7:35 PM EDT Gender Identity Male 08/27/2022 7:35 PM EDT Sexual Orientation Not on file documented as of this encounter Plan of Treatment Upcoming Encounters Date Type Department Care Team (Late st Contact Info) Description 01/09/2025 8:40 AM EDT Office Visit [facility] [address] [place] [address] Tomeka Rosado LIGHT OUT EXAMINER [address] [place] [address] 03/29/2025 9:30 AM EDT Office Visit [facility] [address] [facility] [phone] Fahad Sears PA [address] [facility] [address] [place] [address] documented as of this encounter Visit Diagnoses Not on filedocumented in this encounter Care Teams Cash Checker Relationship Specialty Start Date End Date Renea Barajas DO PCP - General Family Medicine 11/24/22 07/14/23 Shaikh Ayala MD [address] [place] [phone] PCP - General Internal Medicine 07/15/23 04/11/24 Renea Barajas DO [address] [facility] [address] [facility] [place] [address] PCP - ACO Reach 08/14/23 07/21/24 Gerald Low MD [address] [place] [address] PCP - General Family Medicine 04/13/24 Renea Barajas DO [address] [facility] [address] [place] [address] PCP - ACO Reach 07/29/24 09/15/24 Peggy Gatica NP [address] [address] Nurse Practitioner Family Medicine 04/12/24 documented as of this encounter
--- OUTSIDE RECORDS SUMMARY | 2024-12-13 15:04 | XMS_ITS | Encounter Summary ---
Author Organization [facility] Address [address] [place] [address] Care Team Providers Care Green Promotions Specialist Name Role Phone Shaikh MARY Ayala Primary Care Provider [phone] Renea Barajas DO Unavailable [phone] Peggy Gatica DRAFTER CIVIL (CAD) Unavailable [phone] Gerald Low MD Primary Care Provider [phone] Renea Barajas DO Unavailable [phone] Encounter Details Date Type Department Care Team (Late st Contact Info) Description 07/17/2023 Clinisync Result Encounter [facility] External Department Unsolicited Shaikh Ayala MD [address] [place] [address] Social History Tobacco Use Types Packs/Day Years Used Date Smoking Tobacco: Former Cigarettes 9 1983 Passive Smoke Exposure: Never Smokeless [...] week 02/18/2023 How often do you attend sikhism or congregational serv ices? Patient declined 02/18/2023 Do you belong to any clubs o r organizations such as sikhism groups, unions, fraternal or athletic groups, or [...] Recorded Patient Health Questionnaire-2 Score 0 07/15/2023 [facility] - [...] place to sleep or slept in a usp (including now)? No 02/18/2023 Sex and Gender [...] Visit [facility] [address] [place] [address] Tomeka Rosado NP [address] [place] [address] 03/29/2025 9:30 AM EDT Office Visit [facility] [address] [place] [phone] Fahad Sears PA [address] [place] [address] documented as of this encounter Procedures Procedure Name Priority Date/Time Associated Diagnosis Comments US RENAL BI 07/17/2023 10:21 AM EST documented in this encounter Results * US RENAL BI (07/17/2023 10:21 AM EST) Anatomical Region Laterality Modality Other 07/17/2023 10:2 1 AM EST Narrative 07/17/2023 10:23 [place] [address] Ultrasound Report Signed Patient: BRENT CAR MR#: [id number] : 1950 Acct:[id number] Age/Sex: 73 / M ADM Date: 07/17/23 Loc: US Attending Dr: Shaikh Jamie Cartagena Ordering Physician: Shaikh Mitzi Ayala Date of Service: 07/17/23 Procedure(s): US renal BI Accession Number(s): [id number] cc: VANESSA FERRIS ; Shaikh Mitzi Ayala [place] [address] Patient Name: BRENT CAR MRN: [id number] date: 1950 Sex: M Assigned Patient Location: Current Patient Location: Accession/Order Number: [id number] Exam Date: 07/17/2023 09:40 Report Date: 07/17/2023 10:21 At the request of: SHAIKH JAMIE Procedure: US renal BI EXAM: US renal BI HISTORY: . Left Renal Cyst N28.1 . COMPARISON: None. TECHNIQUE: Grayscale and color imaging was performed FINDINGS: Scanning of the right kidney demonstrates right kidney to measure 12 x 6.5 x 5.5 cm. Color-flow is noted. No solid renal cortical masses or hydronephrosis is noted. There is a 9 x 7 mm simple cyst involving the upper pole of the right kidney. Left kidney measures 11.3 x 5.9 x 5.3 cm. Color-flow is noted. There is a 5 x 4.5 cm simple cyst involving the upper pole of the left kidney. There is a 3.0 x 4.1 cm cyst involving the midpole of the left kidney. The filled bladder is grossly unremarkable. No masses are noted. US/US renal BI IMPRESSION: 1. Bilateral renal cortical cysts. No hydronephrosis or solid renal cortical masses. 2. Normal-appearing filled bladder. Electronically authenticated by: MARCELLO COWAN Date: 07/17/2023 10:21 Dictated By: Marcello Cowan M.D. Signed By: 07/17/23 1023 DD/ 1021 TD/TT: Assisted Living Home Director: Procedure Note Radiology, Radiologist, MD - 07/17/2023 [place] [address] Ultrasound Report Signed Patient: BRENT CAR FMR#: [id number] : 1950cct:[id number] Age/Sex: 73 / MADM Date: 07/17/23 Loc: US Attending Dr: Shaikh Jamie Cartagena Ordering Physician: Shaikh Mitzi Ayala Date of Service: 07/17/23 Procedure(s): US renal BI Accession Number(s): [id number] cc: VANESSA FERRIS ; Shaikh Mitzi Ayala The [place] [id number] Patient Name: BRENT CAR MRN: [id number] date: 1950 Sex: M Assigned Patient Location: Current Patient Location: US Accession/Order Number: [id number] Exam Date: 07/17/2023 09:40 Report Date: 07/17/2023 10:21 At the request of: SHAIKH JAMIE Procedure: US renal BI EXAM: US renal BI HISTORY: . Left Renal Cyst N28.1 . COMPARISON: None. TECHNIQUE: Grayscale and color imaging was performed FINDINGS: Scanning of the right kidney demonstrates right kidney tomeasure 12 x 6.5 x 5.5 cm. Color-flow is noted. No solid renal cortical masses or hydronephrosis is noted. There is a 9 x 7 mm simple cyst involving theupper pole of the right kidney. Left kidney measures 11.3 x 5.9 x 5.3 cm. Color-flow is noted. There is a5 x 4.5 cm simple cyst involving the upper pole of the left kidney. There is a3.0 x 4.1 cm cyst involving the midpole of the left kidney. The filled bladder is grossly unremarkable. No masses are noted. US/US renal BI IMPRESSION: 1. Bilateral renal cortical cysts. No hydronephrosis or solid renalcortical masses. 2. Normal-appearing filled bladder. Electronically authenticated by: MARCELLO COWAN Date: 07/17/2023 10:21 Dictated By: Marcello Cowan M.D. Signed By:07/17/23 1023 DD/ 1021 TD/TT: Assisted Living Home Director: us Shaikh Jamie HERNANDEZ [facility] Final Result documented in this encounter Visit Diagnoses Not on filedocumented in this encounter Care Teams Green Promotions Specialist Relationship Specialty Start Date End Date Shaikh Ayala MD [address] [place] [address] PCP - General Internal Medicine 07/15/23 04/11/24 Renea Barajas DO [address] [facility] [address] [place] [address] PCP - ACO Reach 08/14/23 07/21/24 Gerald Low MD [address] [place] [address] PCP - General Family Medicine 04/13/24 Renea Barajas DO 17[address] [facility] [address] [place] [address] PCP - ACO Reach 07/29/24 09/15/24 Peggy Gatica NP [address] [facility] [address] [place] [address] Nurse Practitioner Family Medicine 04/12/24 documented as of this encounter
--- OUTSIDE RECORDS SUMMARY | 2024-12-13 15:04 | XMS_ITS ---
Author Organization [facility] Address [address] [place] [address] Care Team Providers Care Glucose And Syrup Weigher Name Role Phone Tomeka Rosado MD Primary Care Provider [phone] Active Problems Problem Noted Date Diagnosed Date Arthritis 05/31/2024 History of tobacco abuse 05/31/2024 Hypersomnia 05/31/2024 URTI (acute upper respiratory infection) 024 Leukemoid reaction 10/12/2023 10/27/2023 Overview (10/27/2023): Last Assessment & Plan: WBC of 19 k on labs drawn at [facility] - recheck Pneumonia of left lower [...] that he may benefit from seeing a head trimmer for DM, adrenal mass Abnormal nuclear stress test 07/15/202310/2023 Overview (08/18/2023): Last Assessment & Plan: Nuclear stress test 07/08 - perfusion defect in LAD distribution. Asymptomatic. Instructed to start using ASA. Patient scheduled for [facility] on 07/29/23 No prior hx of CAD Encounter to establish care with new doctor 06/1708/18/2023 Overview (08/18/2023): Last Assessment & Plan: New Patient, here to establish care. Reviewed medical, surgical and social hx. Reviewed available old records. Reviewed and updated medication list. New Patient for this practice. Was previously established with Dr Barajas but had to switch since she moved to [facility]. Near syncope 07/10/2023 Assessment & Plan (08/18/2023 11:07 AM EST): Currently stable, no further episode noted Assessment & Plan (07/10/2023 5:18 PM EST): Recently admitted to [facility] for near syncope, bradycardia, abnormal stress [...]
--- OUTSIDE RECORDS SUMMARY | 2024-12-13 15:04 | XMS_ITS | Encounter Summary ---
Author Organization [facility] Address [address] [place] [address] Care Team Providers Care Manager Mobility Name Role Phone Shaikh MARY Ayala Primary Care Provider [phone] Renea Barajas DO Unavailable [phone] Peggy Gatica HEAD OF MOBILE Unavailable Gerald Low MD Primary Care Provider [phone] Renea Barajas DO Unavailable [phone] Reason for Visit * Reason Comments Med Refill Encounter Details Date Type Department Care Team (Late st Contact Info) Description 09/25/2023 Refill [facility] [address] [place] [phone] Renea Barajas, DO [address] [facility] [address] [place] [address] Social History Tobacco Use Types Packs/Day [...] week 02/18/2023 How often do you attend yazidism or mormonism serv ices? Patient declined 02/18/2023 Do you belong to any clubs o r organizations such as yazidism groups, unions, fraternal or athletic groups, or [...] Recorded Patient Health Questionnaire-2 Score 0 08/11/2023 [facility] [place] [facility] Occupat ional Health - Occupational Stress [...] place to sleep or slept in a senior care (including now)? No 02/18/2023 Sex and Gender [...] Visit [facility] [address] [place] [phone] Tomeka Rosado NP [address] [place] [phone] 03/29/2025 9:30 AM EDT Office Visit [facility] [address] [place] [address] Fahad Sears PA [address] [place] [address] documented as of this encounter Visit Diagnoses Not on filedocumented in this encounter Care Teams Manager Mobility Relationship Specialty Start Date End Date Shaikh Ayala MD [address] [place] [phone] PCP - General Internal Medicine 07/15/23 04/11/24 Renea Barajas DO [address] [facility] [address] [facility] [place] [phone] PCP - ACO Reach 08/14/23 07/21/24 Gerald Low MD [address] [place] [phone] PCP - General Family Medicine 04/13/24 Renea Barajas DO [address] [facility] [address] [facility] [place] [phone] PCP - ACO Reach 07/29/24 09/15/24 Peggy Gatica NP [address] [facility] [address] [facility] [place] [phone] Nurse Practitioner Family Medicine 04/12/24 documented as of this encounter
--- NOTE | 2024-12-13 15:31 | ECG_ITS ---
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 Measurements Intervals [place] Rate: 70 P: 1 GA: 168 QRS: 136 QRSD: 144 T: -18 QT: 462 QTc: 482 Interpretive Statements 1100 Sinus rhythm 1973 with frequent ectopic premature complexes 2330 Nonspecific intraventricular conduction block 9150 abnormal ECG Compared to ECG 07/31/2023 16:35:28 First degree AV block no longer present ST (T wave) deviation no longer present Left ventricular hypertrophy no longer present Electronically Signed On 12-14-2024 6:41:57 EDT by RADHA ELAINE M.D.
[2024-12-13 15:36] LABS: Hematocrit 43.8 % (42.0-54.0); Hemoglobin 14.0 g/dL (14.0-18.0); Immature Granulocytes Abs Auto 0.05 10^3/uL (0.00-0.03); Immature Granulocytes Pct Auto 0.5 % (0.0-0.5); Lymphocytes Absolute Auto 1.6 10^3/uL (1.2-3.8); Mean Corpuscular HGB Conc 32.0 g/dL (29.9-35.2); Mean Corpuscular Hemoglobin 28.5 pg (25.9-34.0); Mean Corpuscular Volume 89.2 fL (80.0-94.0); Platelet Count 396 10^3/uL (150-450); Red Blood Count 4.91 10^6/uL (4.70-6.10); White Blood Count 11.0 10^3/uL (4.0-11.0)
[2024-12-13 15:51] LABS: Anion Gap 13.5; Blood Urea Nitrogen 25.0 mg/dL (7.0-18.0); Calcium 9.0 mg/dL (8.5-10.1); Carbon Dioxide 26.7 mmol/L (21.0-32.0); Chloride 106 mmol/L (98-107); Estimated GFR (African America >60 (>=60 mL/min/1.73m^2); Estimated GFR (Non-African Ame 54 (>=60 mL/min/1.73m^2); Glucose 176 mg/dL (74-106); Magnesium 2.3 mg/dL (1.8-2.4); Potassium 4.2 mmol/L (3.5-5.1); Sodium 142 mmol/L (136-145)
--- NOTE | 2024-12-13 15:52 | ECG_ITS ---
[facility] Test Date: 2024-12-13 Pat Name: YUSEF MELGAR Department: Room: - Gender: Male Map Drafter: : 1950 Requested By: 1860 Order Number: [id number] Reading MD: RADHA ELAINE M.D. Measurements Intervals [place] Rate: 72 P: 37 DE: 184 QRS: 131 QRSD: 146 T: -16 QT: 462 QTc: 487 Interpretive Statements 1100 Sinus rhythm with frequent ectopic premature complexes and aberrant conduction 2330 Nonspecific intraventricular conduction block 9150 abnormal ECG Compared to ECG 12/13/2024 15:08:36 No significant changes Electronically Signed On 12-14-2024 6:43:32 EDT by RADHA ELAINE M.D.
--- NOTE | 2024-12-13 15:53 | ECG_ITS ---
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 Measurements Intervals [place] Rate: 65 P: 30 MN: 186 QRS: 129 QRSD: 146 T: -15 QT: 474 QTc: 485 Interpretive Statements 1100 Sinus rhythm 2330 Nonspecific intraventricular conduction block 9150 abnormal ECG Compared to ECG 12/13/2024 15:38:25 Premature complexes and aberrant conduction no longer present Electronically Signed On 12-14-2024 6:44:41 EDT by RADHA ELAINE M.D.
--- NOTE | 2024-12-13 16:48 | ED.GENADUL1 ---
HPI HPI - General Adult General Chief complaint: Arrhythmia/Palpitations Stated complaint: OTHER Time Seen by Provider: 12/13/24 15:01 Source: patient Mode of arrival: ambulance Limitations: no limitations History of Present Illness HPI narrative: 74-year-old male to the emergency department with chief complaint of bradycardia. Patient was at an outpatient follow-up appointment for diverticulitis resolution when his vitals were taken with a pulse oximeter it showed a heart rate in the 20s. Patient reports he was asymptomatic at that time. He has a history of PVCs. He denies any chest pain, shortness of breath. He had had some general malaise recently while being treated for diverticulitis however this has not worsened. Patient reports that he has been hospitalized for this in the past. He has an extensive workup including EP studies, cardiac catheterization without findings. He most recently wore a 30-day Holter monitor was told that he had PVCs. He is under the care of sustainable systems analyst Dr. San for this. Related Data Home Medications ?Medication ?Instructions ?Recorded ?Confirmed allopurinol 300 mg tablet 300 mg PO DAILY 07/09/23 12/13/24 fluticasone propionate 50 1 spray intranasal DAILY PRN 07/09/23 12/13/24 mcg/actuation nasal allergy symptoms spray,suspension (24 Hour Allergy Relief) furosemide 20 mg tablet 20 mg PO DAILY 07/09/23 12/13/24 losartan 100 mg tablet 100 mg PO DAILY 07/09/23 12/13/24 omeprazole 40 mg capsule,delayed 40 mg PO DAILY 07/09/23 12/13/24 release rosuvastatin 10 mg tablet 20 mg PO DAILY 07/09/23 12/13/24 bisoprolol fumarate 10 mg tablet 10 mg PO BID 10/07/23 12/13/24 glimepiride 4 mg tablet 4 mg PO DAILY 10/07/23 12/13/24 tamsulosin 0.4 mg capsule 0.4 mg PO DAILY 10/07/23 12/13/24 empagliflozin 25 mg tablet 25 mg PO QDAY 08/23/24 12/13/24 (Jardiance) amlodipine 5 mg tablet 5 mg PO DAILY 12/13/24 12/13/24 Allergies Allergy/AdvReac Type Severity Reaction Status Date / Time ciprofloxacin (From Cipro) Allergy Severe Diarrhea Verified 03/11/25 16:24 erythromycin base Allergy Severe Diarrhea Verified 08/23/24 16:24 lisinopril Allergy Severe Cough Verified 08/23/24 16:24 Opioid HPI Opioid Management Most Recent Opioid Data: Last Pain Scale 6 08/23/24, 16:31 Review of Systems ROS Status of ROS 10 or more systems reviewed and unremarkable except as noted in history and below [facility] Medical History Bradycardia with 31-40 beats per minute ?R00.1 - Bradycardia, unspecified (ICD-10) Paroxysmal cardiac arrhythmia ?I49.8 - Other specified cardiac arrhythmias (ICD-10) Dizziness ?R42 - Dizziness and giddiness (ICD-10) Edema ?R60.9 - Edema, unspecified (ICD-10) Gout ?M10.9 - Gout, unspecified (ICD-10) Rotator cuff injury ?S46.009A - Unspecified injury of muscle(s) and tendon(s) of the rotator cuff of unspecified shoulder, initial encounter (ICD-10) Surgical History FH: cholecystectomy ?Z83.79 - Family history of other diseases of the digestive system (ICD-10) History of appendectomy ?Z90.49 - Acquired absence of other specified parts of digestive tract (ICD-10) Family History Father Family history of cancer Family history of diabetes mellitus Family history of hypertension Mother Family history of cancer Family history of hypertension Social History Within the past year, how often did you have a drink containing alcohol: never Score interpretation: A score less than 4 is consistent with normal alcohol consumption. Smoking status: Former smoker Non-prescribed substance use: denies use Previous occupational history: retired Highest level of school completed/degree received: some college, no degree Are you now , , , , never or living with a partner: In a typical week, how many times do you talk on the telephone with family, friends, or neighbors: 3 or more times per week How often do you get together with friends or relatives: 3 or more times per week How often do you attend jainism or islam services: never Little interest or pleasure in doing things: not at all Feeling down, depressed, or hopeless: not at all Feel stressed/tense/nervous/anxious/difficulty sleeping: not at all Do you think of yourself as: straight/heterosexual Gender Identity: male Exam Narrative Exam Narrative: VITALS: I have reviewed the triage vital signs. GENERAL: Well developed, well appearing adult in no acute distress. NEURO: Alert and oriented. Moves all extremities. Face is symmetric and expressive. EYES: PERRL. No scleral icterus or conjunctival injection. No discharge. HENT: Normocephalic, atraumatic. Hearing is grossly intact. Nares grossly patent and without discharge. Mucous membranes moist. NECK: No JVD. Patient moves neck without restriction. CARDIO: Rhythm regular. Normal rate. No murmur, rub, or gallop. Pulses equal bilaterally in the upper and lower extremity. No lower extremity edema. PULM: Lungs clear to auscultation in all dahl. No wheezes, rales, or rhonchi. No conversational dyspnea. No splinting, stridor, or accessory muscle use. GI/: Abdomen is soft and non-tender. Normoactive bowel sounds. EXTREMITIES: Symmetric muscle bulk. No joint swelling. No clubbing, cyanosis, or deformity. SKIN: Warm and dry. Normal turgor. No rash or lesions appreciated. PSYCH: Mood, affect, and interaction is appropriate to the setting. Constitutional Vital Signs, click to edit/add: Last Vital Signs Pulse 74 12/13/24 15:00 Resp 18 12/13/24 15:00 BP 162/77 H 12/13/24 15:00 Pulse Ox 98 12/13/24 15:16 O2 Del Method Room Air 12/13/24 15:16 Course Vital Signs Vital signs: Vital Signs Pulse Rate 74 12/13/24 15:00 Respiratory Rate 18 12/13/24 15:00 Blood Pressure 162/77 H 12/13/24 15:00 Pulse Oximetry 96 12/13/24 15:00 Oxygen Delivery Method Room Air 12/13/24 15:00 Pulse Rate 74 12/13/24 15:00 Respiratory Rate 18 12/13/24 15:00 Blood Pressure 162/77 H 12/13/24 15:00 Pulse Oximetry 98 12/13/24 15:16 Oxygen Delivery Method Room Air 12/13/24 15:16 Medical Decision Making [facility] Narrative Medical decision making narrative: Well-appearing 74-year-old male to the emergency department chief complaint of abnormal vital signs from his primary care office. Vital stable, febrile. On telemetry monitoring he does have a sinus rhythm with frequent PVCs. There is association of the PVCs with cardiac contraction is felt that the bedside with the pulse. Patient has no specific complaints today, he is currently asymptomatic. Lab work reviewed and is unremarkable. Patient remains in a stable sinus rhythm at a rate of 50-70 throughout his ED stay. He was observed for 2 hours. Case was discussed with the on-call sustainable systems analyst Dr. Pastrana. He recommended that if the patient is asymptomatic he is stable for outpatient follow-up with Dr. San for further workup and evaluation. Medical Records Medical records reviewed: Yes I reviewed the patient's medical records Lab Data Lab results reviewed: Yes I reviewed the patient's lab results Labs: Lab Results 12/13/24 Range/Units 15:06 WBC 11.0 (4.0-11.0) 10^3/uL RBC 4.91 (4.70-6.10) 10^6/uL Hgb 14.0 (14.0-18.0) g/dL Hct 43.8 (42.0-54.0) % MCV 89.2 (80.0-94.0) fL MCH 28.5 (25.9-34.0) pg MCHC 32.0 (29.9-35.2) g/dL RDW 16.4 H (11.0-15.0) % Plt Count 396 (150-450) 10^3/uL MPV 10.1 (9.5-13.5) fL Neut % (Auto) 75.0 (43.0-75.0) % Lymph % (Auto) 14.7 L (20.5-60.0) % [place] % (Auto) 8.9 (1.7-12.0) % Eos % (Auto) 0.7 L (0.9-7.0) % Baso % (Auto) 0.2 (0.2-2.0) % Neut # (Auto) 8.3 H (1.4-6.5) 10^3/uL Lymph # (Auto) 1.6 (1.2-3.8) 10^3/uL [place] # (Auto) 1.0 H (0.3-0.8) 10^3/uL Eos # (Auto) 0.1 (0.0-0.7) 10^3/uL Baso # (Auto) 0.0 (0.0-0.1) 10^3/uL Abs Immat Gran (auto) 0.05 H (0.00-0.03) 10^3/uL Imm/Tot Granulo (auto) 0.5 (0.0-0.5) % Sodium 142 (136-145) mmol/L Potassium 4.2 (3.5-5.1) mmol/L Chloride 106 (98-107) mmol/L Carbon Dioxide 26.7 (21.0-32.0) mmol/L Anion Gap 13.5 BUN 25.0 H (7.0-18.0) mg/dL Creatinine 1.29 (0.70-1.30) mg/dL Est GFR ( Amer) >60 (>=60 mL/min/1.73m^2) Est GFR (Non-Af Amer) 54 L (>=60 mL/min/1.73m^2) BUN/Creatinine Ratio 19.4 Glucose 176 H (74-106) mg/dL Calcium 9.0 (8.5-10.1) mg/dL Magnesium 2.3 (1.8-2.4) mg/dL Troponin I High Sens 13.4 (4.0-76.1) pg/mL ECG Data Attestation: I personally reviewed and interpreted this ECG as follows: (NSR w/ PVCs. No STEMI. Normal QTC. ) Discharge Plan Discharge Chief Complaint: Arrhythmia/Palpitations Clinical Impression: Frequent PVCs Patient Disposition: Home, Self-Care Time of Disposition Decision: 17:08 Condition: Good Mode of Transportation: Private Vehicle Prescriptions / Home Meds: No Action glimepiride 4 mg tablet 4 mg PO DAILY tamsulosin 0.4 mg capsule 0.4 mg PO DAILY bisoprolol fumarate 10 mg tablet 10 mg PO BID Jardiance 25 mg tablet 25 mg PO QDAY amlodipine 5 mg tablet 5 mg PO DAILY allopurinol 300 mg tablet 300 mg PO DAILY furosemide 20 mg tablet 20 mg PO DAILY losartan 100 mg tablet 100 mg PO DAILY omeprazole 40 mg capsule,delayed release(DR/EC) 40 mg PO DAILY rosuvastatin 10 mg tablet 20 mg PO DAILY fluticasone propionate [24 Hour Allergy Relief] 50 mcg/actuation spray,suspension 1 spray intranasal DAILY PRN (Reason: allergy symptoms) Rx Instructions: administer into each nostril Print Language: Uzbek Instructions: Premature Ventricular Contractions (ED) Additional Instructions: Call the office of your primary care doctor to arrange for follow-up within the above-stated timeframe. Your ED visit was focused on your acute issue and does not replace primary care. You should review your labs, imaging, and diagnoses from this ED visit with your primary care physician. There may be non-emergent/ incidental findings that need further evaluation. You should review your vital signs including blood pressure with your PCP. If you were prescribed medications you should discuss possible side-effects and drug interactions with your pharmacist. Call 911 or go to the nearest Emergency Department if you develop any new or worsening symptoms. Seek immediate medical attention if you develop: worsening chest pain, new chest pain, nausea, vomiting, weakness, numbness, tingling, excessive sweating, shortness of breath, difficulty breathing, loss of motion in your arms or legs, or any new or worsening symptoms. Referrals: Tomeka Rosado NP [Primary Care Provider, Family Practice] - 1 week Noe San MD [Physician, Cardiology] - 1 week
== END 2024-12-13 17:28 | disposition home or self-care (01) ==
PROVIDERS: Emergency Provider Student in an Organized Health Care Education/Training Program; PCP Nurse Practitioner
DX: I49.3 Ventricular premature depolarization (principal); Z90.49 Acquired absence of other specified parts of digestive tract; Z87.891 Personal history of nicotine dependence
CPT/HCPCS: 36415; 80048; 83735; 84484; 85025; 93005; 99284

== ENCOUNTER 2025-01-09 10:02 | Outpatient (OUT) | payer MEDICARE, OTHER, SELFPAY ==
--- NOTE | 2025-01-09 | XR_ITS ---
The [address] [address] Patient Name: YUSEF MELGAR MRN: [id number] date: 1950 Sex: M Assigned Patient Location: [facility] Current Patient Location: [facility] Accession/Order Number: [id number] Exam Date: 01/09/2025 10:50 Report Date: 01/09/2025 10:56 At the request of: AD STRONG NP Procedure: XR ankle LT min 3V LEFT ANKLE - 3 views CLINICAL DATA: Chronic left ankle pain and swelling laterally. No specific injury. COMPARISON: 08/23/2024 AP, lateral and oblique views were obtained. There is osteopenia. There is no acute fracture or dislocation. Similar minor asymmetry is seen at the medial ankle mortise. Spurring is present at the malleoli and dorsum of the talus. There are also calcaneal spurs, larger at the plantar surface. The talar dome is intact. Lateral soft tissue swelling is seen. XR/XR ankle LT min 3V IMPRESSION: NO ACUTE BONY FINDINGS. Impression dictated by: Kisha Dudley M.D. 01/09/2025 10:56 AM Dictation Location: [place] [address] Electronically authenticated by: [id number] Y Date: 01/09/2025 10:56
--- OUTSIDE RECORDS SUMMARY | 2025-01-09 08:40 | XMS_ITS | Encounter Summary ---
Author Organization [facility] Address [address] [place] [address] Care Team Providers Care Server Support Technician Name Role Phone Peggy Gatica NP Unavailable [phone] Gerald Low MD Primary Care Provider [phone] Reason for Visit * Reason Comments Medicare Annual Wellness Visit Initial Encounter Details Date Type Department Care Team (Late st Contact Info) Description 01/09/2025 8:40 AM EDT [facility] [address] [place] [address] Tomeka Rosado NP [address] [place] [address] Encounter for subsequent annual wellness visit (AWV) in Medicare patient (Primary Dx); NSVT (nonsustained ventricular tachycardia) (HCC); Bradycardia; Stage 3a chronic kidney disease ([facility]-HCC); Type 2 diabetes mellitus with stage 3a chronic kidney disease, without long-term current use of insulin (HCC); Class 1 obesity due to excess calories with serious comorbidity in adult, unspecified BMI; 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HCC); Left adrenal mass (HCC); Mixed hyperlipidemia ; Primary hypertension ; Left ankle swelling Social History Tobacco Use Types Packs/Day Years [...] How often do you attend chur or catholic services? Patient declined 07/06/2024 Do you belong to any clubs o r organizations such as alevism groups, unions, fraternal or athletic groups, or [...] Date Recorded Patient Health Questionnaire-2 Score 0 01/09/2025 [facility] - Occupational Stress Questionnaire Answer Date Recorded [...] any time in the past 12 m [facility], were you homeless or living in a alf (including now)? No 07/06/2024 Sex and Gender Information Value Date Recorded Sex Assigned at Not on file Legal Sex Male 7:35 PM EDT Gender Identity Male 08/27/2022 7:35 PM EDT Sexual Orientation Not on file documented as of this encounter Last Filed Vital Signs Vital Sign Reading Time Taken Comments Blood Pressure 160/80 01/09/2025 8:33 AM EDT Pulse 68 01/09/2025 8:33 AM EDT Temperature 36.9 C (98.5 F) 01/09/2025 8:33 AM EDT Respiratory Rate 18 01/09/2025 8:33 AM EDT Oxygen Saturation 96% 01/09/2025 8:33 AM EDT Inhaled Oxygen Concentration - - Weight 105 kg (231 lb 6.4 oz) 01/09/2025 8:33 AM EDT Height - - Body Mass Index 33.2 07/13/2024 8:29 AM EST documented in this encounter Functional Status * Over the past 2 weeks, how often have you been bothered by any of the following problems? Question Answer Date of Assessment Author Little interest or pleasure in doing things Not at all 01/09/2025 8:34 AM LIZETT SONAL CAMPBELL A Feeling down, depressed, or hopeless Not at all 01/09/2025 8:34 AM SONAL MCGRAW A Patient Health Questionnaire -2 Score 0 01/09/2025 8:34 AM SONAL MCGRAW A * Question Answer Date of Assessment Author Trouble falling or staying asleep, or sleeping too much Nearly every day 01/09/2025 8:34 AM SONAL MCGRAW A Feeling tired or having little energy Nearly every day 01/09/2025 8:34 AM SONAL MCGRAW A Poor appetite or overeating Nearly every day 01/09/2025 8:34 AM SONAL MCGRAW A Feeling bad about yourself - or that you are a failure or have let yourself or your family down Several days 01/09/2025 8:34 AM SONAL MCGRAW A Trouble concentrating on things, such as reading the newspaper or watching television Not at all 01/09/2025 8:34 AM SONAL MCGRAW A Moving or speaking so slowly that other people could have noticed? Or the opposite - being so fidgety or restless that you have been moving around a lot more than usual. Nearly every day 01/09/2025 8:34 AM EDT SONAL CAMPBELL Thoughts that you would be better off or hurting yourself in some way Not at all 01/09/2025 8:34 AM EDT LAWRENCE CAMPBELL Patient Health Questionnaire-9 Score 13 01/09/2025 8:34 AM EDT RAYMUNDO CAMPBELL documented as of this encounter Patient Instructions * Patient Instructions* Tomeka Rosado NP - 01/09/2025 8:40 AM EDT Follow up in office for 2 weeks Get xray documented in this encounter Progress Notes * Tomeka Rosado NP - 01/09/2025 9:08 AM EDTAssociated Problem(s): Primary hypertension Please check blood pressure daily and record DASH diet Limit caffeine Take medication as directed Contact office if chest pain, pressure, dizziness, shortness of breath, swelling legs Recommend slow position changes Current meds: bisoprolol, losartan Elevation today, stop by office in 2 weeks for BP check * Tomeka Rosado NP - 01/09/2025 8:40 AM EDT Images from the original note were not included. Brent Car is a 74 y.o. male presents with chief complaint of Medicare Annual Wellness Visit Initial HPI: Diet:yes Activity: stays active Mental Health Concerns: depression/anxiety family losses Falls in the last year: no Still driving: yes Do you pay your bills: yes Any hearing problems:some age related lower tones Any Vision problems: wears glasses, last exam last month start of glaucoma Any Hospitalizations in the last year: no, recent ER visit Specialist: eye doctor, golf club facer, urology, GI, oncololgy HCPOA/Living Will: HEATHER Concerns: left ankle pain: intemittent swelling, pain with walking Happens off and on, told had arthritis, take tylenol arthritis SUBJECTIVE: MEDICATIONS: Current Outpatient Medications Medication Instructions allopurinol (ZYLOPRIM) 300 mg, Oral, Daily bisoprolol (ZEBETA) 5 mg, Daily empagliflozin (JARDIANCE) 25 mg, Oral, Daily fluticasone (Flonase) 50 MCG/ACT nasal spray 2 sprays, Daily furosemide (LASIX) 20 mg, Oral, Daily glimepiride (AMARYL) 4 mg, Oral, Daily before breakfast glucose blood (FREESTYLE LITE) test strip 1 each, Other, Daily, dailyUse as instructed losartan (COZAAR) 100 mg, Oral, Daily omeprazole (PriLOSEC) [address] capsule TAKE 1 CAPSULE IN THE MORNING BEFORE A MEAL (DO NOT CRUSH ORCHEW) rosuvastatin (CRESTOR) 20 mg, Oral, Daily tamsulosin (FLOMAX) 0.4 mg, Daily ALLERGIES: Allergies Allergen Reactions Azithromycin Unknown Ciprofloxacin Other Reaction(s): ?change in mental status Erythromycin GI intolerance and Other Lisinopril Cough REVIEW OF SYMPTOMS: Review of Systems Constitutional: Negative for activity change, appetite change and unexpected weight change. HENT: Negative for ear pain, nosebleeds, sneezing, trouble swallowing and voice change. Eyes: Negative for pain, discharge and visual disturbance. Respiratory: Negative for apnea, chest tightness and wheezing. Cardiovascular: Negative for leg swelling. Gastrointestinal: Negative for abdominal distention, blood in stool, constipation and diarrhea. Genitourinary: Negative for decreased urine volume, difficulty urinating, dysuria and hematuria. Musculoskeletal: Positive for joint swelling. Skin: Negative for color change. Neurological: Negative for dizziness, tremors and seizures. Psychiatric/Behavioral: Negative for agitation, decreased concentration, hallucinations, self-injury and suicidal ideas. The patient is not nervous/anxious. Hematological: Negative for adenopathy. Does not bruise/bleed easily. Endocrine: Negative for cold intolerance, heat intolerance, polydipsia and polyuria. Allergic/Immunologic: Negative for environmental allergies and food allergies. PAST MEDICAL HISTORY Past Medical History: Diagnosis Date Actinic keratosis 2 left hand Allergic 1963 Allergic rhinitis 1963 Anemia Arthritis 2000 Campylobacter diarrhea Cancer (HCC) 2020 Decreased testosterone level Diabetes mellitus, type II (HCC) Diverticulosis Dyspnea on effort Epididymitis Family history of malignant neoplasm of breast older sister Fatty liver GERD (gastroesophageal reflux disease) Hearing loss history of depression and panic disorder History of gout history of gout/hyperuricemia History of peptic ulcer disease History of prostatitis Hypertension Hyperuricemia Gout/hyperuricemia Left ventricular hypertrophy Lumpy breasts Mitral valve prolapse Mixed hyperlipidemia Multinodular goiter Nasal polyposis Noncompliance with therapeutic regimen Obesity Peptic ulceration 1964 Pneumonia Seborrheic keratosis ankle TIA (transient ischemic attack) Vertigo Visual impairment 1959 Past Surgical History: Procedure Laterality Date APPENDECTOMY age 18 BUNIONECTOMY 2004 CHOLECYSTECTOMY 05/2021 COLONOSCOPY 10/14/2010 -x2 polyps-one tubular adenoma,one hyperplastic/Dr Alvarez COLONOSCOPY 05/14/2015 moderate sigmoid diverticulosis,Dr Alvarez CYSTOSCOPY dilitation - 1999? 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 OBJECTIVE: Visit Vitals BP 160/80 (BP Location: Left arm, Patient Position: Sitting, BP Cuff Size: Adult long) Pulse 68 Temp 98.5 ??F (Temporal) Resp 18 Wt 231 lb 6.4 oz SpO2 96% BMI 33.20 kg/m?? Smoking Status Former BSA 2.28 m?? Physical Exam Vitals and nursing note reviewed. Constitutional: Appearance: Normal appearance. HENT: Head: Normocephalic. Right Ear: External ear normal. Left Ear: External ear normal. Nose: Nose normal. Mouth/Throat: Mouth: Mucous membranes are moist. Pharynx: Oropharynx is clear. Eyes: Extraocular Movements: Extraocular movements intact. Conjunctiva/sclera: Conjunctivae normal. Neck: Vascular: No carotid bruit. Cardiovascular: Rate and Rhythm: Normal rate and regular rhythm. Pulses: Normal pulses. Heart sounds: Normal heart sounds. Pulmonary: Effort: Pulmonary effort is normal. Breath sounds: Normal breath sounds. Abdominal: General: Bowel sounds are normal. Palpations: Abdomen is soft. Musculoskeletal: Cervical back: Neck supple. Right lower leg: No edema. Comments: Edema an tenderness to left ankle, mild swelling No erythema Skin: General: Skin is warm and dry. Capillary Refill: Capillary refill takes 2 to 3 seconds. Neurological: General: No focal deficit present. Mental Status: He is alert. Psychiatric: Mood and Affect: Mood normal. Behavior: Behavior normal. Thought Content: Thought content normal. Judgment: Judgment normal. ASSESSMENT AND PLAN: Follow up in about 2 months (around 03/12/2025) for Recheck. Problem List Items Addressed This Visit Primary hypertension Please check blood pressure daily and record DASH diet Limit caffeine Take medication as directed Contact office if chest pain, pressure, dizziness, shortness of breath, swelling legs Recommend slow position changes Current meds: bisoprolol, amlodipine Mixed hyperlipidemia On statin therapy Check labs yearly and prn dose changes Type 2 diabetes mellitus with kidney complication, without long-term current use of insulin (HCC) Check blood sugars daily, [...] meds: jardiance, gimepiride, statin A1c 7.0% 11/28/24 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HCC) Continue recommended monitoring of this NSVT (nonsustained ventricular tachycardia) (HCC) Noted from cardiology notes in the past Stage 3a chronic kidney disease (CMS-HCC) Noted on prior labs Control blood pressure as well as diabetes Avoid nephrotoxic drugs if possible Left adrenal mass (HCC) Follows with urology for this Class 1 obesity with serious comorbidity in adult Discussed with patient their BMI (actual, verses recommended). We have also discussed lifestyle modifications: attempts to perform physical activity as chronic conditions allow, also to monitor dietary intake: increasing protein/fruits/veggies and lowering carb intake (unless contraindicated). Limit sodas, juices, and sugary drinks. Bradycardia Noted at last office visit, was sent to [facility] via squad Bisoprolol dose was lowered from 10mg daily to 5mg daily Encounter for subsequent annual wellness visit (AWV) in Medicare patient - Primary Reviewed Ht/Wt/BMI Recommend eye exam yearly Recommend dental exams twice a year Balance work/leisure activities Exercises is recommended most days of the week (appropriate as chronic conditions allow) Follow up yearly and prn Left ankle swelling Relevant Orders XR ankle 3+ views left * Tomeka Rosado NP - 01/09/2025 6:20 AM EDTAssociated Problem(s): Encounter for subsequent annual wellness visit (AWV) in Medicare patient Reviewed Ht/Wt/BMI Recommend eye exam yearly Recommend dental exams twice a year Balance work/leisure activities Exercises is recommended most days of the week (appropriate as chronic conditions allow) Follow up yearly and prn * Tomeka Rosado NP - 01/09/2025 6:19 AM EDTAssociated Problem(s): Mixed hyperlipidemia On statin therapy Check labs yearly and prn dose changes * Tomeka Rosado NP - 01/09/2025 6:19 AM EDTAssociated Problem(s): 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HCC) Continue recommended monitoring of this * Tomeka Rosado NP - 01/09/2025 6:15 AM EDTAssociated Problem(s): Left adrenal mass (HCC) Follows with urology for this * Tomeka Rosado NP - 01/09/2025 6:14 AM EDTAssociated Problem(s): Class 1 obesity with serious comorbidity in adult Discussed with patient their BMI (actual, verses recommended). We have also discussed lifestyle modifications: attempts to perform physical activity as chronic conditions allow, also to monitor dietary intake: increasing protein/fruits/veggies and lowering carb intake (unless contraindicated). Limit sodas, juices, and sugary drinks. * Tomeka Rosado NP - 01/09/2025 6:14 AM EDTAssociated Problem(s): Type 2 diabetes mellitus with kidney complication, without long-term currentuse of insulin ([facility]) Check blood sugars daily, notify if <70 [...] 7.0% 11/28/24 * Tomeka Rosado NP - 01/09/2025 6:14 AM EDTAssociated Problem(s): Stage 3a chronic kidney disease ([facility]) Noted on prior labs Control blood pressure as well as diabetes Avoid nephrotoxic drugs if possible * Tomeka Rosado NP - 01/09/2025 6:13 AM EDTAssociated Problem(s): Bradycardia Noted at last office visit, was sent to [facility] ER via squad Bisoprolol dose was lowered from 10mg daily to 5mg daily * Tomeka Rosado NP - 01/09/2025 6:12 AM EDTAssociated Problem(s): NSVT (nonsustained ventricular tachycardia) ([facility]) Noted from cardiology notes in the past * Tomeka Rosado NP - 01/09/2025 6:12 AM EDTAssociated Problem(s): LLQ pain Checked labs and xray at last appt Treated for suspected diverticulitis, sxs resolved documented in this encounter Plan of Treatment Upcoming Encounters Date Type Department Care Team (Late st Contact Info) Description 03/13/2025 9:00 AM EDT Office Visit [facility] [address] [place] [address] Tomeka Rosado NP [address] [place] [address] 03/29/2025 9:30 AM EDT Office Visit [facility] [address] [place] [phone] Fahad Sears, PA [address] [place] [address] 01/11/2026 10:30 AM EDT [facility] [address] [place] [address] Tomeka Rosado NP [address] [place] [phone] Scheduled Orders Name Type Priority Associated Diagnoses Orde r Schedule XR ankle 3+ views left Imaging Routine Left ankle swelling Expected: 01/09/2025, Expires: 01/09/2026 documented as of this encounter Visit Diagnoses Diagnosis Encounter for subsequent annual wellness visit (AWV) in Medicare patient- Primary NSVT (nonsustained ventricular tachycardia) (HCC) Bradycardia Other specified cardiac dysrhythmias Stage 3a chronic kidney disease (CMS-HCC) Type 2 diabetes mellitus with stage 3a chronic kidney disease, without long-term current use of insulin (HCC) Class 1 obesity due to excess calories with serious comorbidity in adult, unspecified BMI 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HCC) Other malignant neoplasm of unspecified site Left adrenal mass (HCC) Unspecified disorder of adrenal glands Mixed hyperlipidemia Mixed hyperlipidemia Primary hypertension Unspecified essential hypertension Left ankle swelling Effusion of ankle and foot joint documented in this encounter Additional Health Concerns Assessment Noted Time PHQ-9 Depression Total Score: 13 025 8:34 AM EDT documented as of this encounter Care Teams Server Support Technician Relationship Specialty Start Date End Date Gerald Low MD [address] [place] [address] PCP - General Family Medicine 04/13/24 Peggy Gatica NP Nurse Practitioner Family Medicine 04/12/24 documented as of this encounter
--- OUTSIDE RECORDS SUMMARY | 2025-01-09 10:05 | XMS_ITS | Encounter Summary ---
Author Organization [facility] Address [address] [place] [address] Care Team Providers Care Blooming Mill Supervisor Name Role Phone Peggy Gatica SPEECH PATHOLOGY ASSISTANT Unavailable [phone] Gerald Low MD Primary Care Provider [phone] Encounter Details Date Type Department Care Team (Latest Contact Info) Description 01/06/2025 Travel Social History Tobacco Use Types Packs/Day [...] often do you attend chur ch or gnosticist services? Patient declined 07/06/2024 Do you belong to any clubs o r organizations such as restorationism groups, unions, fraternal or athletic groups, or [...] Recorded Patient Health Questionnaire-2 Score 0 01/11/2024 [facility] - Occupational Stress [...] any time in the past 12 m [facility], were you homeless or [...] 9:00 AM EDT Office Visit [facility] [address] [place] [address] Tomeka Rosado NP [address] [place] [address] 03/29/2025 9:30 AM EDT Office Visit [facility] [address] [place] [address] Fahad Sears PA [address] [place] [address] 01/11/2026 10:30 AM EDT Office Visit [facility] [address] [place] [phone] Tomeka Rosado NP [address] [place] [address] documented as of this encounter Visit Diagnoses Not on filedocumented in this encounter Care Teams Blooming Mill Supervisor Relationship Specialty Start Date End Date Gerald Low MD [address] [place] [address] PCP - General Family Medicine 04/13/24 Peggy Gatica NP Nurse Practitioner Family Medicine 04/12/24 documented as of this encounter
--- OUTSIDE RECORDS SUMMARY | 2025-01-09 10:05 | XMS_ITS | Encounter Summary ---
Author Organization [facility] Address [address], [address] [place] [address] Care Team Providers Care Residence Life Coordinator Name Role Phone Shaikh MARY Ayala Primary Care Provider [phone] Encounter Details Date Type Department Care Team (Late st Contact Info) Description 12/19/2024 Results Follow-Up [facility] on [address] [id number] Belen Camargo, GARBAGE DEPOT WORKER - SUPERVISOR [employer] [address] [place] [address] Dr [address] [place] [address] Social History Tobacco Use Types Packs/Day Years [...] Care Team (Late st Contact Info) Description 12/20/2025 8:30 AM EDT Appointment [facility] [address] [place] [address] 12/26/2025 9:30 AM EDT Office Visit [facility] on [address] [phone] Ky Justice, PA-C [address] [place] [address] Dr Velazquez [address] [place] [phone] yearly with MRI documented as of this encounter Visit Diagnoses Not on filedocumented in this encounter Care Teams Residence Life Coordinator Relationship Specialty Start Date End Date Shaikh Ayala MD PCP - General 07/31/23 documented as of this encounter
--- OUTSIDE RECORDS SUMMARY | 2025-01-09 10:05 | XMS_ITS | Encounter Summary ---
Author Organization [facility] Address [address] [place] [address] Care Team Providers Care Video Game Developer Name Role Phone Peggy Gatica NP Unavailable [phone] Gerald Low MD Primary Care Provider [phone] Encounter Details Date Type Department Care Team (Late st Contact Info) Description 01/09/2025 Bamboo flowsheet [facility] [address] [place] [address] Tomeka Rosado NP [address] [place] [address] Social History Tobacco Use Types Packs/Day Years [...] How often do you attend chur or anglican services? Patient declined 07/06/2024 Do you belong to any clubs o r organizations such as mandaen groups, unions, fraFlowMedica or athletic groups, or school groups? No [...] Recorded Patient Health Questionnaire-2 Score 0 01/09/2025 [facility]ational [facility] Questionnaire [...] in a long-term (including now)? No 02/18/2023 Housing Stability Vital [...] time in the past 12 m [facility], were you homeless or living in a long-term (including now)? No 07/06/2024 Sex and Gender Information Value Date Recorded Sex Assigned at Not on file Legal Sex Male 7:35 PM EDT Gender Identity Male 08/27/2022 7:35 PM EDT Sexual Orientation Not on file documented as of this encounter Plan of Treatment Upcoming Encounters Date Type Department Care Team (Late st Contact Info) Description 03/13/2025 9:00 AM EDT Office Visit [facility] [address] [place] [address] Tomeka Rosado NP [address] [place] [address] 03/29/2025 9:30 AM EDT Office Visit [facility] [address] [place] [address] Fahad Sears PA [address] [place] [address] 01/11/2026 10:30 AM EDT Office Visit [facility] [address] [place] [phone] Tomeka Rosado NP [address] [place] [address] documented as of this encounter Visit Diagnoses Not on filedocumented in this encounter Additional Health Concerns Assessment Noted Time PHQ-9 Depression Total Score: 13 01/09/ 025 8:34 AM EDT documented as of this encounter Care Teams Video Game Developer Relationship Specialty Start Date End Date Gerald Low MD [address] [place] [address] PCP - General Family Medicine 04/13/24 Peggy Gatica NP Nurse Practitioner Family Medicine 04/12/24 documented as of this encounter
--- OUTSIDE RECORDS SUMMARY | 2025-01-09 10:05 | XMS_ITS | Encounter Summary ---
Author Organization [facility] Address [address] [place] [address] Care Team Providers Care Product Developer Name Role Phone Shaikh MARY Ayala Primary Care Provider [phone] Renea Barajas DO Unavailable [phone] Peggy Gatica SPOILAGE WORKER Unavailable [phone] Gerald Low MD Primary Care Provider [phone] Renea Barajas DO Unavailable [phone] Encounter Details Date Type Department Care Team (Late st Contact Info) Description 07/30/2023 Orders Only [facility] [address] [place] [address] Shaikh Ayala MD [address] [place] [address] Social History Tobacco Use Types Packs/Day Years [...] week 02/18/2023 How often do you attend amish or methodist serv ices? Patient declined 02/18/2023 Do you belong to any clubs o r organizations such as amish groups, unions, fraternal or athletic groups, or [...] Recorded Patient Health Questionnaire-2 Score 0 07/15/2023 [facility] [place] of Occupat ional Health - Occupational Stress [...] place to sleep or slept in a fpc (including now)? No 02/18/2023 Sex and Gender [...] Visit [facility] [address] [place] [address] Tomeka Rosado NP [address] [place] [address] 03/29/2025 9:30 AM EDT Office Visit [facility] [address] [place] [address] Fahad Sears PA [address] [place] [address] 01/11/2026 10:30 AM EDT Office Visit [facility] [address] [place] [address] Tomeka Rosado NP [address] [place] [address] documented as of this encounter Procedures Procedure Name Priority Date/Time Associated Diagnosis Comments US RENAL COMPLETE Routine 07/17/2023 11:51 AM EST documented in this encounter Results * US renal complete (07/17/2023 11:51 AM EST) Anatomical Region Laterality Modality Kidney Ultrasound us Shaikh Jamie HERNANDEZ IMG US PROCEDURES Final Result documented in this encounter Visit Diagnoses Not on filedocumented in this encounter Care Teams Product Developer Relationship Specialty Start Date End Date Shaikh Ayala MD [address] [place] [address] PCP - General Internal Medicine 07/15/23 04/11/24 Renea Barajas DO [address] [facility] [place] [address] [facility] [place] [address] PCP - ACO Reach 08/14/23 07/21/24 Gerald Low MD [address] [place] [address] PCP - General Family Medicine 04/13/24 Renea Barajas DO [address] [facility] [place] [address] [facility] [place] [address] PCP - ACO Reach 07/29/24 09/15/24 Peggy Gatica NP [address] [facility] 200 [place] [address] Nurse Practitioner Family Medicine 04/12/24 documented as of this encounter
--- OUTSIDE RECORDS SUMMARY | 2025-01-09 10:05 | XMS_ITS | Encounter Summary ---
Author Organization [facility] Address [address] [place] [address] Care Team Providers Care Turnaround Planner Name Role Phone Shaikh MARY Ayala Primary Care Provider [phone] Renea Barajas DO Unavailable [phone] Peggy Gatica GIS GEOGRAPHER Unavailable [phone] Gerald Low MD Primary Care Provider [phone] Renea Barajas DO Unavailable [phone] Encounter Details Date Type Department Care Team (Late st Contact Info) Description 07/17/2023 Clinisync Result Encounter [facility] External Department Unsolicited Shaikh Ayala MD [address] [place] [address] Social History Tobacco Use Types Packs/Day Years [...] week 02/18/2023 How often do you attend mosque or hoahaoism serv ices? Patient declined 02/18/2023 Do you belong to any clubs o r organizations such as mosque groups, unions, fraternal or athletic groups, or [...] Recorded Patient Health Questionnaire-2 Score 0 07/15/2023 [facility] of Occupat ional Health - [...] place to sleep or slept in a retirement (including now)? No 02/18/2023 Sex and Gender [...] Office Visit [facility] [address] [place] [address] Tomeka Rosado NP [address] [place] [address] 03/29/2025 9:30 AM EDT Office Visit [facility] [address] [place] [address] Fahad Sears PA [address] [place] [address] 01/11/2026 10:30 AM EDT Office Visit [facility] [address] [place] [address] Tomeka Rosado NP [address] [place] [address] documented as of this encounter Procedures Procedure Name Priority Date/Time Associated Diagnosis Comments US RENAL BI 07/17/2023 10:21 AM EST documented in this encounter Results * US RENAL BI (07/17/2023 10:21 AM EST) Anatomical Region Laterality Modality Other 07/17/2023 10:2 1 AM EST Narrative 07/17/2023 10:23 [place] [address] Ultrasound Report Signed Patient: BRENT CAR MR#: [id number] : 1950 Acct:[id number] Age/Sex: 73 / M ADM Date: 07/17/23 Loc: US Attending Dr: Shaikh Jamie Cartagena Ordering Physician: Shaikh Mitzi Ayala Date of Service: 07/17/23 Procedure(s): US renal BI Accession Number(s): [id number] cc: VANESSA FERRIS ; Shaikh Mitzi Ayala [address] [address] Patient Name: BRENT CAR MRN: [id number] date: 1950 Sex: M Assigned Patient Location: US Current Patient Location: US Accession/Order Number: [id number] Exam Date: 07/17/2023 09:40 Report Date: 07/17/2023 [...] Signed By: 07/17/23 1023 DD/ 1021 TD/TT: Wind Project Manager: Procedure Note Radiology, Radiologist, MD - 07/17/2023 [place] [address] Ultrasound Report Signed Patient: BRENT CAR FMR#: [id number] : 1950cct:[id number] Age/Sex: 73 / MADM Date: 07/17/23 Loc: US Attending Dr: Shaikh Jamie Cartagena Ordering Physician: Shaikh Mitzi Ayala Date of Service: 07/17/23 Procedure(s): US renal BI Accession Number(s): [id number] cc: VANESSA FERRIS Shaikh M.D. The [address] [address] Patient Name: BRENT CAR MRN: [id number] date: 1950 Sex: M Assigned Patient Location: US Current Patient Location: US Accession/Order Number: [id number] Exam Date: 07/17/2023 09:40 Report Date: 07/17/2023 [...] M.D. Signed By:07/17/23 1023 DD/ 1021 TD/TT: Wind Project Manager: us Shaikh Jamie [facility]Z [facility] Final Result documented in this encounter Visit Diagnoses Not on filedocumented in this encounter Care Teams Turnaround Planner Relationship Specialty Start Date End Date Shaikh Ayala MD [address] [place] [address] PCP - General Internal Medicine 07/15/23 04/11/24 Renea Barajas DO [address] [address] PCP - ACO Reach 08/14/23 07/21/24 Gerald Low MD [address] [place] [address] PCP - General Family Medicine 04/13/24 Renea Barajas DO 1715 [facility] 200 [place] [address] PCP - ACO Reach 07/29/24 09/15/24 Peggy Gatica NP [address] [facility] 200 [place] [address] Nurse Practitioner Family Medicine 04/12/24 documented as of this encounter
--- OUTSIDE RECORDS SUMMARY | 2025-01-09 10:05 | XMS_ITS | Clinical Summary ---
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 Asymptomatic. Instructed to start using ASA. Patient scheduled for [facility] on 07/29/23 No prior hx of CAD Encounter to establish care with new doctor 06/1708/18/2023 Overview (08/18/2023): Last Assessment & Plan: New Patient, here to establish care. Reviewed medical, surgical and social hx. Reviewed available old records. Reviewed and updated medication list. New Patient for this practice. Was previously established with Dr Barajas but had to switch since she moved to [facility]. Near syncope 07/10/2023 Assessment & Plan (08/18/2023 11:07 AM EST): Currently stable, no further episode noted Assessment & Plan (07/10/2023 5:18 PM EST): Recently admitted to [facility] for near syncope, bradycardia, abnormal [...] Encounters Date Type Department Care Team Description 12/19/2024 Telephone [facility] [address] [place] [address] Darlin Fish MA 11/23/2024 Orders Only [facility] [address] [place] [address] ProviderAddy MD 11/22/2024 3:30 PM EDT Office Visit [facility] [address] [place] [address] Noe San MD Palpitations (Primary Dx) from Last 3 Months Family History Medical History Relation Name Comments Cancer Brother 1 Carrington Diabetes type II Brother 1 Carrington Hypertension Brother 1 Carrington Cancer Brother 2 Artem Diabetes type II Brother 2 Artem Cancer Father Demetri Josep Diabetes type II Father Demetrichas Learyon Hypertension Father Demetri Josep Angina Mother Yasmin Josep Cancer Mother Yasmin [...] Zoster Vaccines (1 of 2) 1999 05/24/2016, 1206/2015 Fall Risk Screening 2014 COVID-19 Vaccine ( season) 2024 04/28/2023, 10/15/2021, 03/25/2021, Additional history exists Diabetes: Hemoglobin A1C 04/14/2024 01/13/2024 Influenza Vaccine (#1) 2025 , 03/20/2023, 03/27/2022, Additional history exists Adult Tetanus 10/27/2028 10/27/2018, 10/13, 03/14/2011 Colonoscopy 11/28/2030 11/28/2020 Colorectal Cancer Screening 11/28/2030 Pneumococcal Vaccine: 50+ Years Completed 02/24/2023, 11/22/2018, 05/21/2018, Additional history exists HIB Vaccines Aged Out [...] Subscriber Plan / Payer (Ef fective 2016-Present) Name:Brent Car Member ID:[id number] Relation to Subscriber:Self Name:Brent Car Subscriber ID:[id number] Payer ID:[id number] Group ID:Not on file Type:Medicare Address: [facility] [place] [id number] [facility] Care Teams Supply Clerk Relationship Specialty Start Date End Date Tomeka Rosado MD [address] [place] [address] PCP - General Nurse Practitioner 11/22/24
--- OUTSIDE RECORDS SUMMARY | 2025-01-09 10:05 | XMS_ITS | Encounter Summary ---
Author Organization [facility] Address [address] [facility], [address] [place] [address] Care Team Providers Care Crystal Flat Grinder Name Role Phone Shaikh MARY Ayala Primary Care Provider [phone] Encounter Details Date Type Department Care Team (Late Contact Info) Description 12/01/2023 Hospital Encounter [facility] Radiology [address] [place], [place] [id number] Social History Tobacco Use Types Packs/Day Years [...] Department Care Team (Late Contact Info) Description 12/20/2025 8:30 AM EDT Appointment [facility] MRI [address] [place] [place], [place] [address] 12/26/2025 9:30 AM EDT Office Visit [facility] [address] [address] Ky Justice PA-C [address] [place] [address] [address] yearly with MRI documented as of this encounter Visit Diagnoses Not on filedocumented in this encounter Care Teams Crystal Flat Grinder Relationship Specialty Start Date End Date Shaikh Ayala MD PCP - General 07/31/23 documented as of this encounter
--- OUTSIDE RECORDS SUMMARY | 2025-01-09 10:05 | XMS_ITS | Encounter Summary ---
Author Organization [facility] Address [address] [place] [address] Care Team Providers Care Casino Worker Name Role Phone Shaikh MARY Ayala Primary Care Provider [phone] Renea Barajas DO Unavailable [phone] Peggy Gatica PRIVATE TUTOR Unavailable [phone] Gerald Low MD Primary Care Provider [phone] Renea Barajas DO Unavailable [phone] Encounter Details Date Type Department Care Team (Late st Contact Info) Description 10/08/2023 Orders Only [facility] [address] [place] [address] Nino Martell MD [address] [facility] Social History Tobacco Use Types Packs/Day Years [...] week 02/18/2023 How often do you attend jainism or mormonism serv ices? Patient declined 02/18/2023 Do you belong to any clubs o r organizations such as jainism groups, unions, fraternal or athletic groups, or [...] Recorded Patient Health Questionnaire-2 Score 0 10/12/2023 [facility] of Occupat ional Health - Occupational [...] Office Visit [facility] [address] [place] [address] Tomeka Rosado NP [address] [place] [address] 03/29/2025 9:30 AM EDT Office Visit [facility] [address] [place] [address] Fahad Sears PA [address] [place] [address] 01/11/2026 10:30 AM EDT Office Visit [facility] [address] [place] [address] Tomeka Rosado NP [address] [place] [address] documented as of this encounter Procedures Procedure [...] on filedocumented in this encounter Care Teams Casino Worker Relationship Specialty Start Date End Date Shaikh Ayala MD [address] [place] [address] PCP - General Internal Medicine 07/15/23 04/11/24 Renea Barajas DO [address] [facility] 200 [place] [address] PCP - ACO Reach 08/14/23 07/21/24 Gerald Low MD [address] [place] [address] PCP - General Family Medicine 04/13/24 Renea Barajas DO [address] [facility] [address] [place] [address] PCP - ACO Reach 07/29/24 09/15/24 Peggy Gatica NP [address] [facility] 200 [place] [address] Nurse Practitioner Family Medicine 04/12/24 documented as of this encounter
--- OUTSIDE RECORDS SUMMARY | 2025-01-09 10:05 | XMS_ITS | Encounter Summary ---
Author Organization [facility] Address [address] [place] [address] Care Team Providers Care Breakfast Bar Attendant Name Role Phone Shaikh MARY Ayala Primary Care Provider [phone] Renea Barajas DO Unavailable [phone] Peggy Gatiac OUTCOME ANALYST Unavailable [phone] Gerald Low MD Primary Care Provider [phone] Renea Barajas DO Unavailable [phone] Encounter Details Date Type Department Care [...] week 02/18/2023 How often do you attend faith or hindu serv ices? Patient declined 02/18/2023 Do you belong to any clubs o r organizations such as faith groups, unions, fraternal or athletic groups, or [...] Recorded Patient Health Questionnaire-2 Score 0 11/16/2023 [facility] - Occupational Stress Questionnaire Answer Date Recorded [...] to sleep or slept in a senior living (including now)? No 02/18/2023 Sex and Gender [...] Visit [facility] [address] [place] [address] Tomeka Rosado, ANJEL [address] [place] [address] 03/29/2025 9:30 AM EDT Office Visit [facility] [address] [place] [address] Fahad Sears PA [address] [place] [address] 01/11/2026 10:30 AM EDT Office Visit [facility] [address] [place] [address] Tomeka Rosado, ANJEL [address] [place] [address] documented as of this encounter Procedures Procedure [...] CT chest abdomen pelvis 05/26/2023 ACCESSION NUMBER(S): [id number] ORDERING CLINICIAN: NEFTALI GARLAND TECHNIQUE: Helical data [...] Morales MD. This study was interpreted at [place], [place]. Signed by: Lul Villegas 01/01/2024 9:17 PM Dictation workstation: [id number] Procedure Note Radiology, Radiologist, - 01/01/2024 Interpreted By: Lul Villegas and Maltbie Grace STUDY: CT CHEST W IV CONTRAST; 12/31/2023 7:55 am INDICATION: Signs/Symptoms:LUNG NODULE. COMPARISON: CT chest abdomen pelvis 05/26/2023 ACCESSION NUMBER(S): [id number] ORDERING CLINICIAN: NEFTALI GARLAND TECHNIQUE: Helical data [...] Morales MD. This study was interpreted at [place], [place]. Signed by: Lul Villegas 01/01/2024 9:17 PM Dictation workstation: [id number] us Generic External Data Provider IMG CT PROCEDURES Final Result documented in this encounter Visit Diagnoses Not on filedocumented in this encounter Care Teams Breakfast Bar Attendant Relationship Specialty Start Date End Date Shaikh Ayala MD [address] [place] [address] PCP - General Internal Medicine 07/15/23 04/11/24 Renea Barajas DO [address] [facility] [address] [place] [address] PCP - ACO Reach 08/14/23 07/21/24 Gerald Low MD [address] [place] [address] PCP - General Family Medicine 04/13/24 Renea Barajas DO [address] [facility] [address] [place] [address] PCP - ACO Reach 07/29/24 09/15/24 Peggy Gatica NP [address] [facility] [place] [address] [place] [address] Nurse Practitioner Family Medicine 04/12/24 documented as of this encounter
--- OUTSIDE RECORDS SUMMARY | 2025-01-09 10:05 | XMS_ITS | Clinical Summary ---
Author Organization [facility] Healthcare Address [address] [place] [address] Care Team Providers Care Platen Grinder Name Role Phone Peggy Gatica NP Unavailable [phone] Gerald Low MD Primary Care Provider [phone] Allergies Active Allergy Reactions Criticality Noted Date Comments Azithromycin Unknown 03/24/2018 Ciprofloxacin 11/24/2022 Other Reaction(s): ?change in mental status Erythromycin GI intolerance,Other 04/28/2023 Lisinopril Cough 11/24/2022 Medications fluticasone (Flonase) 50 MCG/ACT nasal spray Administer 2 sprays into each nostril in the morning. Active tamsulosin (Flomax) 0.4 MG 24 hr capsule Take 0.4 mg by mouth Daily Active furosemide (Lasix) 20 MG tabletIndications: Primary [...] 25 MGIndications:Stag e 3a chronic kidney disease (CMS-HCC),Type 2 diabetes mellitus with stage 3a chronic kidney disease, without long-term current use of insulin (HCC) Take 1 tablet (25 mg) by mouth Daily 90 tablet 1 08/24/19 25 025 Active glimepiride (Amaryl) 4 MG tabletIndications: Type 2 diabetes mellitus with stage 3a chronic kidney disease, without long-term current use of insulin ([facility]) Take 1 tablet (4 mg) by mouth in the morning. Take before meals. 90 tablet 1 10/12/19 25 Active glucose blood (FREESTYLE LITE) test stripIndications:T ype 2 diabetes mellitus without complication, unspecified whether longwall machine operator helper insulin use (HCC) 1 each by Other route Daily dailyUse as instructed 100 strip 3 10/20/19 25 025 Active allopurinol (Zyloprim) 300 MG tabletIndications: Gout, unspecified cause, unspecified chronicity, unspecified site Take 1 tablet (300 mg) by mouth Daily 90 tablet 1 11/04/19 25 025 Active bisoprolol (Zebeta) 5 MG tablet Take 5 mg by mouth Daily 01/04/20 25 Active bisoprolol (Zebeta) 10 MG tabletIndications: Primary hypertension TAKE 1 TABLET IN THE MORNING 90 tablet 3 10/14/19 24 025 Discontin ued(Thera py completed ) amLODIPine (Norvasc) 10 MG tablet Take 5 mg by mouth Daily as needed 025 Discontin ued(Thera py completed ) Active Problems Problem Noted Date Diagnosed Date Encounter for subsequent [facility] wellness visit (AWV) in Medicare patient 01/09/2025 Assessment & Plan (01/09/2025 6:20 AM EDT): Reviewed Ht/Wt/BMI Recommend eye exam yearly Recommend dental exams twice a year Balance work/leisure activities Exercises is recommended most days of the week (appropriate as chronic conditions allow) Follow up yearly and prn Left ankle swelling 01/09/2025 Bradycardia 12/13/2024 Assessment & Plan (01/09/2025 6:13 AM EDT): Noted at last office visit, was sent to [facility] ER via [facility] Bisoprolol dose was lowered from 10mg daily to 5mg daily Assessment & Plan (12/13/2024 3:10 PM EDT): No current sxs , at HR that he has, we discussed that despite asymptomatic we will send to hospital 911 Squad 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, report given Sent with last office note, for med list etc I have reassessed the pt: HR 34, BP 120/72 Skin is pink, warm, and dry LLQ pain 11/28/2024 Assessment & Plan (01/09/2025 6:12 AM EDT): Checked labs and xray at last appt Treated for suspected diverticulitis, sxs resolved Assessment & Plan (12/13/2024 3:07 PM EDT): Checked labs and xray at last appt Treated for suspected diverticulitis, sxs resolved Assessment & Plan (11/28/2024 2:31 PM EDT): Abd xray Labs: cbc, sed rate, chem 14, UA w micro and urine culture Suspect diverticulitis Diverticulitis 11/28/2024 Assessment & Plan (12/13/2024 3:08 PM EDT): Treated with atb, sxs resolved Class 1 obesity with serious comorbidity in adul t 10/10/2024 Assessment & Plan (01/09/2025 6:14 AM EDT): Discussed with patient their BMI (actual, verses recommended). We have also discussed lifestyle modifications: attempts to perform physical activity as chronic conditions allow, also to monitor dietary intake: increasing protein/fruits/veggies and lowering carb intake (unless contraindicated). Limit sodas, juices, and sugary drinks. Assessment & Plan (12/13/2024 7:08 AM EDT): [...] of 19 k on labs drawn at [facility] - recheck Left adrenal mass 08/11/2023 Assessment & Plan (01/09/2025 6:15 AM EDT): Follows with urology for this Assessment & Plan (01/11/2024 11:29 PM EDT): [...] chronic kidney disease 07/15/2023 Assessment & Plan (01/09/2025 6:14 AM EDT): Noted on prior labs Control blood pressure as well as diabetes Avoid nephrotoxic drugs if possible Assessment & Plan (07/13/2024 8:56 AM EST): Stable. Follows with Nephrology. Most recent Creatinine 1.22,/ eGFR 58. Avoid Nephrotoxic Agents. Monitor closely. Assessment & Plan (04/12/2024 9:02 AM EDT): Stable. Most recent Creatinine 1.18,/ eGFR 65. Avoid Nephrotoxic Agents. Monitor closely. 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 Start patient on Jardiance. Stop Actose. Abnormal electrocardiogram (ECG) (EKG) Overview (07/15/2023): Last Assessment & Plan: Frequent PVCs, bigemeny, NSVT Near syncope 07/10/2023 Overview (07/15/2023): Last Assessment & Plan: Recently admitted to [facility] for near syncope, bradycardia, abnormal stress test with NSVT while on treamill. Frequent PVCS NSVT (nonsustained ventricular tachycardia) 06/16 Overview (07/15/2023): Last Assessment & Plan: 4 beat NSVT noted on treadmill stress test- ordered cardiac cath for further ischemia evaluation with recent near syncope, abnormal EKG and stress test, chest pain Assessment & Plan (01/09/2025 6:12 AM EDT): Noted from cardiology notes in the past Assessment & Plan (07/15/2023 2:41 PM EST): Scheduled for [facility] in July. Patient is currently [...] in sxs Primary malignant neuroendocrine neoplasm of duo denum 04/28/2023 Assessment & Plan (10/10/2024 6:16 AM [...] use of insulin 02/24/2023 Assessment & Plan (01/09/2025 6:14 AM EDT): Check blood sugars daily, notify [...] statin A1c 7.0% 11/28/24 Assessment & Plan (12/13/2024 7:20 AM EDT): [...] Assessment & Plan (04/12/2024 10:55 AM EDT): [address] [place] [address] ortho told him he needed revision. Declined. [...] socks Primary hypertension 11/24/2022 Assessment & Plan (01/09/2025 9:18 AM EDT): Please check blood pressure daily and record DASH diet Limit caffeine Take medication as directed Contact office if chest pain, pressure, dizziness, shortness of breath, swelling legs Recommend slow position changes Current meds: bisoprolol, losartan Elevation today, stop by office in 2 weeks for BP check Assessment & Plan (12/13/2024 3:07 PM EDT): Please check blood pressure daily and record DASH diet Limit caffeine Take medication as directed Contact office if chest pain, pressure, dizziness, shortness of breath, swelling legs Recommend slow position changes Current meds: bisoprolol, amlodipine Assessment & Plan (10/10/2024 6:15 AM EDT): [...] same. Mixed hyperlipidemia 11/24/2022 Assessment & Plan (01/09/2025 6:19 AM EDT): On statin therapy Check labs yearly and prn dose changes Assessment & Plan (10/10/2024 6:18 AM EDT): [...] Panel Continue current regimen. Neuroendocrine carcinoma 11/28/2020 Assessment & Plan (01/09/2025 6:19 AM EDT): Continue recommended monitoring of this Arthritis Resolved Problems Problem Noted Date Diagnosed Date Resolved Date URTI (acute upper respiratory infection) 11/16/2023 12/13/2024 Pneumonia of left lower lobe due to infectious organism 10/12/2023 10/10/2024 Assessment & Plan (10/12/2023 11:06 AM EDT): Left lower lobe infiltrate on CXR, mild resp symptoms including cough. He presented to ED for fever. Will start patient on Doxycycline and treat for bacterial PNA. Encounter to establish care with new doctor 07/15/2023 01/09/2025 Assessment & Plan (07/15/2023 2:48 PM EST): New Patient, here to establish care. Reviewed medical, surgical and social hx. Reviewed available old records. Reviewed and updated medication list. New Patient for this practice. Was previously established with Dr Barajas but had to switch since she moved to [facility]. Accelerated hypertension 02/24/2023 Morbid obesity 11/24/2022 10/10/2024 Diabetes mellitus type 2 in obese 06/24/2021 10/10/2024 Encounters Date Type Department Care Team Description 01/09/2025 8:40 AM EDT Office Visit [facility] [address] [place] [address] Tomeka Rosado NP Encounter for subsequent annual wellness visit (AWV) in Medicare patient (Primary Dx); NSVT (nonsustained ventricular tachycardia) (HCC); Bradycardia; Stage 3a chronic kidney disease ([facility]-HCC); Type 2 diabetes mellitus with stage 3a chronic kidney disease, without long-term current use of insulin (HCC); Class 1 obesity due to excess calories with serious comorbidity in adult, unspecified BMI; 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HCC); Left adrenal mass (HCC); Mixed hyperlipidemia ; Primary hypertension ; Left ankle swelling 01/09/2025 Bamboo flowsheet [facility] [address] [place] [address] Tomeka Rosado NP 01/06/2025 Travel 12/19/2024 Orders Only [facility] [address] [place] [address] Jai Subramanian MD 12/19/2024 Telephone [facility] [address] [place] [address] Tomeka Rosado NP 12/13/2024 2:00 PM EDT Office Visit [facility] [address] [place] [address] Tomeka Rosado NP Bradycardia (Primary Dx); LLQ pain; Primary malignant neuroendocrine neoplasm of duodenum (HCC); Class 1 obesity due to excess calories with serious comorbidity in adult, unspecified BMI; Type 2 diabetes mellitus with stage 3a chronic kidney disease, without long-term current use of insulin (HCC); Diverticulitis; Primary hypertension 12/13/2024 Bamboo flowsheet [facility] [address] [place] [address] Tomeka Rosado NP 12/06/2024 Travel 11/30/2024 9:30 AM EDT Office Visit [facility] [address] [place], [place] [address] [address] Fahad Sears PA Acute pain of left shoulder (Primary Dx); Left rotator cuff tear arthropathy; Arthritis of left shoulder 11/30/2024 Bamboo flowsheet [facility] [address] [place], [place] [address] [address] Fahad Sears PA 11/30/2024 Travel 11/28/2024 2:00 PM EDT Office Visit [facility] [address] [place] [address] Tomeka Rosado NP LLQ pain (Primary Dx); Diverticulosis of sigmoid colon; Diverticulitis 11/28/2024 External Result Encounter [facility] External Department Unsolicited Tomeka Rosado, ANJEL 11/28/2024 Telephone [facility] [address] [place] [address] Tomeka Rosado NP 11/28/2024 Clinisync Result Encounter [facility] External Department Unsolicited Tomeka Rosado, ANJEL 11/28/2024 Clinisync Result Encounter [facility] External Department Unsolicited Tomeka Rosado, ANJEL 11/28/2024 Bamboo flowsheet [facility] [address] [place] [address] Tomeka Rosado NP 11/28/2024 Travel 11/23/2024 Travel 11/03/2024 Refill [facility] [address] [place] [address] Tomeka Rosado NP Gout, unspecified cause, unspecified chronicity, unspecified site (Primary Dx) 11/03/2024 Telephone [facility] [address] [place] [address] Tomeka Rosado NP 10/19/2024 Refill [facility] [address] [place] [address] Tomeka Rosado NP Type 2 diabetes mellitus without complication, unspecified whether longwall machine operator helper insulin use (HCC) 10/11/2024 Refill [facility] [address] [place] [address] Gerald Low MD Type 2 diabetes mellitus with stage 3a chronic kidney disease, without long-term current use of insulin (HCC) 10/10/2024 8:40 AM EDT Office Visit [facility] [address] [place] [address] Tomeka Rosado NP Type 2 diabetes mellitus with stage 3a chronic kidney disease, without long-term current use of insulin (HCC) (Primary Dx); Gastroesophageal reflux disease without esophagitis; Primary malignant neuroendocrine neoplasm of duodenum (HCC); Benign prostatic hyperplasia with lower urinary tract symptoms, symptom details unspecified; Obesity (BMI 30-39.9); Morbid obesity (CMS-HCC); Gout, unspecified cause, unspecified chronicity, unspecified site; Mixed hyperlipidemia ; Class 1 obesity due to excess calories with serious comorbidity in adult, unspecified BMI; Screening for prostate cancer; Diabetic polyneuropathy associated with type 2 diabetes mellitus (HCC); Primary hypertension 10/10/2024 Bamboo flowsheet [facility] [address] [place] [address] Tomeka Rosado NP from Last 3 Months Immunizations Immunization Administration Dates Next Due Influenza, High Dose Seasona l, Preservative Free 03/09/2019,04/09/2018,05/18/2017 Influenza, High-dose Seasona l, Quadrivalent, Preservative Free 03/20/2023,03/27/2022,03/01/2021,02/23 Influenza, seasonal, injecta ble, preservative free 03/13/2016,03/28/2015 Influenza, trivalent, adjuvanted 04/05/2024 Novel [id number], preservative-free 08/06/2009 Pneumococcal Conjugate PCV 13 11/22/2018, 018 Pneumococcal Polysaccharide PPSV23 02/24/2023, RSV, recombinant, protein lopez bunit RSVpreF, adjuvant reconstitu, 120mcg/0.5mL, PF (Arexvy) 05/24/2024 TD (adult), 2 Lf tetanus tox oid, preservative free, adsorbed 10/27/2018 Tdap 10/27/2018,03/14/2011 Zoster, live 05/24/2016,05/15/2016 Family History Medical History Relation Name Comments Cancer Brother Carrington Meniere's disease Brother [facility] multinodular goiter Brother Carrington Diabetes Father Carrington Hearing loss Father [facility] Heart disease Father Carrington Hypertension Father Carrington Heart disease Mother Yasmin Heart failure Mother Yasmin Breast cancer Sister Diabetes Son Artem Relation Name Status Comments Brother Carrington x2 Father Carrington Mother Yasmin Sister Son Artem Alive x2 Social History Tobacco Use Types Packs/Day Years Used Date Smoking Tobacco: Former Cigarettes 1 15 1 9 - 1983 Passive Smoke Exposure: Never [...] week 07/06/2024 How often do you attend [facility] or islam services? Patient declined 07/06/2024 Do you belong to any clubs o r organizations such as latter-day groups, unions, fraternal or athletic groups, or [...] Recorded Patient Health Questionnaire-2 Score 0 01/09/2025 [facility] Occupat ional [facility] - Occupational Stress [...] in a residential (including now)? No 02/18/2023 Housing Stability Vital Sign Answer Saurav e Recorded In the last 12 months, was t here a time when you were not able to pay the mortgage or rent on time? No 07/06/2024 In the past 12 months, how m any times have you moved where you were living? 0 07/06/2024 At any time in the past 12 m [facility], were you homeless or living in a residential (including now)? No 07/06/2024 Sex and Gender [...] 6.4 oz) 01/09/2025 8:33 AM EDT Height 177.8 cm (5' 10 ) 07/13/2024 8:29 AM EST Body Mass Index 33.2 07/13/2024 8:29 AM EST Plan of Treatment Upcoming Encounters Date Type Department Care Team (Late st Contact Info) Description 03/13/2025 9:00 AM EDT Office Visit [facility] [address] [place] [address] Tomeka Rosado NP [address] [place] [address] 03/29/2025 9:30 AM EDT [facility] [address] [place] [address] Fahad Sears, PA [address] [place] [address] 01/11/2026 10:30 AM EDT Office Visit [facility] [address] [place] [address] Toemka Rosado NP [address] [place] [address] Health Maintenance Due Date Last Done Comments CT Colonography 1950 FIT-DNA 1950 FIT 1950 FOBT 1950 Sigmoidoscopy 1950 Influenza Vaccine (#1) 2025 4, 03/20/2023, 03/27/2022, Additional history exists Diabetes: Hemoglobin A1C 02/28/20252 025, 07/13/2024, 01/13/2024, Additional history exists Diabetes: Retinopathy Screening 08/17/2025 , 07/08/2018 Diabetes: Urine Protein Screening 11/28/2025 11/28/2024, 05/16/2020, 01/26/2019 Medicare Annual Wellness (AWV) 01/09/2026 0 01/09/2025, 02/24/2023, 05/16/2020, Additional history exists Colonoscopy 11/28/2030 11/28/2020, 11/13, 07/14/2014 Colorectal Cancer Screening 11/28/2030 Pneumococcal Vaccine: 65+ Years Completed 02/24/2023, 11/22/2018, 05/21/2018, Additional history exists Procedures Procedure Name Priority Date/Time Associated Diagnosis Comments ECG 12-LEAD Routine 12/19/2024 10:34 AM EDT GA ARTHROCENTESIS ASPIR&/INJ MAJOR JT/BURSA W/US Routine 11/30/2024 10:18 AM EDT Left rotator cuff tear arthropathy XR ABDOMEN 1V 11/28/2024 4:17 PM EDT ALL URIC ACID Routine 11/28/2024 3:08 PM EDT [facility] CMP (CMP) (FOR REMOTE [facility] USE) Routine 11/28/2024 3:08 PM EDT MLR HEMOGLOBIN A1C Routine 11/28/2024 3: 08 PM EDT ALL SED RATE Routine 11/28/2024 3:08 PM EDT ALL CBC WITH AUTO DIFF Routine 3:08 PM EDT TBH MICROALB CREAT RATIO RANDOM Routine 11/28/2024 2:55 PM EDT TBH UA (CLEAN/CATCH) MICROSCOPIC IF INDICATE Routine 11/28/2024 2:55 PM EDT URINE CULTURE - [facility] Routine 11/28/2024 2:55 PM EDT CULTURE, URINE, [...] Recently Relevant to Health Maintenance Results * ECG 12 lead (12/19/2024 10:34 AM EDT) us Jai Subramanian MD ECG ORDERABLES Final Result * GA ARTHROCENTESIS ASPIR&/INJ MAJOR JT/BURSA W/US (11/30/2024 10:18 [...] neurovascular intact s/p injection. . ( Codes 03979) Procedure, treatment alternatives, risks and benefits explained, specific risks discussed. Consent was given by the patient. Patient was prepped and draped in the usual sterile fashion. us Fahad RIBEIRO IN CLINIC/BEDSIDE ORDERABLES Final Result * XR ABDOMEN 1V (11/28/2024 4:17 PM EDT) Anatomical Region Laterality Modality Other 11/28/2024 4:17 PM EDT Narrative 11/28/2024 4:20 [place] [address] XRay Report Signed Patient: BRENT CAR MR#: [id number] : 1950 Acct:[id number] Age/Sex: 74 / M ADM Date: 11/28/24 Loc: LAB Attending Dr: Tomeka Rosado NP Ordering Physician: Tomeka Rosado NP Date of Service: 11/28/24 Procedure(s): XR abdomen 1V Accession Number(s): [id number] cc: Tomeka Rosado NP [place] [address] Patient Name: BRENT CAR MRN: [id number] date: 1950 Sex: M Assigned Patient Location: LAB Current Patient Location: LAB Accession/Order Number: [id number] Exam Date: 11/28/2024 16:16 Report Date: 11/28/2024 [...] Gallardo M.D. 11/28/2024 4:17 PM Dictation Location: [place] [address] Electronically authenticated by: [id number] Y Date: 11/28/2024 16:17 Dictated By: Jose A Gallardo M.D. 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: Procedure Note Radiology, Radiologist, MD - 11/28/2024 [place] [address] XRay Report Signed Patient: BRENT CAR FMR#: [id number] : 1950cct:[id number] Age/Sex: 74 / MADM Date: 11/28/24 Loc: LAB Attending Dr: Tomeka Rosado NP Ordering Physician: Tomeka Rosado NP Date of Service: 11/28/24 Procedure(s): XR abdomen 1V Accession Number(s): [id number] cc: Tomeka Rosado NP [place] [address] Patient Name: BRENT CAR MRN: [facility]:[id number] date: 1950 Sex: M Assigned Patient Location: LAB Current Patient Location: LAB Accession/Order Number: [id number] Exam Date: 11/28/2024 16:16 Report Date: 11/28/2024 [...] Gallardo M.D. 11/28/2024 4:17 PM Dictation Location: [place] [address] Electronically authenticated by: [id number] Y Date: 6:17 Dictated By: Jose A Gallardo M.D. Signed By:11/28/24 1620 DD/ 1617 TD/TT: Maintenance Truck Driver: Tomeka Rosado NP [facility] Final Result * (ABNORMAL) MLR HEMOGLOBIN A1C (11/28/2024 3:08 PM EDT) GLYCOHEMOGLOBIN A1C 7.0(H) 4.5 - 6.2 % TB Comment: ADA RECOMMENDED LIMIT 4.0 - 6.0 ADA THERAPEUTIC TARGET < 7.0 ACTION SUGGESTED > 7.0 ESTIMATED AVERAGE GLUCOSE 154 mg/dL TBH 11/28/2024 3:08 PM EDT 11/28/2024 3:10 PM EDT Narrative [facility] - 11/28/2024 4:02 PM EDT Tomeka Rosado NP [facility] Final Result [facility] TB * (ABNORMAL) [facility] CMP (CMP) (FOR REMOTE [facility] USE) (11/28/2024 3:08 PM EDT) SODIUM 140 136 - 145 mmol/L TBH POTASSIUM 4.1 3.5 - 5.1 mmol/L TBH CHLORIDE 103 98 - 107 mmol/L TBH CARBON DIOXIDE 24.5 21.0 - 32.0 mmol/L TBH ANION GAP 16.6 TBH GLUCOSE 218(H) 74 - 106 mg/dL TBH BLOOD UREA NITROGEN 25.0(H) 7.0 - 18.0 mg/dL TBH CREATININE 1.34(H) 0.70 - 1.30 mg/dL TBH TBH EGFR-AF [place]UR[place] AND [place] >60 >=60 mL/min/1. 73m 2 TBH TBH EGFR-NON AF [place]UR[place] AND [place] 52(L) >=60 mL/min/1. 73m 2 TBH BUN [...] [facility]IN[facility] - 11/28/2024 4:02 PM EDT Tomeka Rosado NP [facility] Final Result Performing Organization Address [facility] Co de Phone Number [facility] * ALL URIC ACID (11/28/2024 3:08 PM EDT) URIC ACID 3.9 3.5 - 7.2 mg/dL TB 11/28/2024 3:08 PM EDT 11/28/2024 3:10 PM EDT Narrative [facility] - 11/28/2024 4:02 PM EDT Tomeka Rosado NP [facility] Final Result Performing Organization Address [facility] Co de Phone Number [facility] * (ABNORMAL) ALL SED RATE (11/28/2024 3:08 PM EDT) [facility] SED RATE 89(H) <=20 mm/hr TB 11/28/2024 3:0 8 PM EDT 11/28/2024 3:10 PM EDT Narrative [facility] - 11/28/2024 3:30 PM EDT Tomeka Rosado NP [facility] Final Result [facility] * (ABNORMAL) ALL CBC WITH AUTO DIFF (11/28/2024 3:08 PM EDT) [facility] TB WBC 10.1 4.0 - 11.0 10 3/uL TBH TBH RBC 4.98 4.70 - 6.10 10 6/uL TBH TBH HGB 14.5 14.0 - 18.0 g/dL TBH TBH HCT 44.0 42.0 - 54.0 % TBH TBH MCV 88.4 80.0 - 94.0 fL TBH TBH MCH 29.1 25.9 - 34.0 pg TBH TBH MCHC 33.0 29.9 - 35.2 g/dL TBH TBH RDW 16.2(H) 11.0 - 15.0 % TBH TBH PLT 392 150 - 450 10 3/uL TBH TBH MPV 10.1 9.5 - 13.5 fL TBH NEUTROPHILS PERCENT AUTO 78.4(H) 43.0 - 75.0 [...] 3:26 PM EDT us Tomeka Rosado NP [facility] Final Result [facility] * URINE CULTURE - [facility] (11/28/2024 2:55 PM EDT) URINE CULTURE - [facility] Urine Culture - [facility] No Growth 2 Days TB URINE CULTURE - [facility] TB URINE CULTURE - [facility] Testing performed at [facility] URINE CULTURE - [facility] [address] [place] [address] TB 11/28/2024 2:55 PM EDT 11/28/2024 3:11 PM EDT Narrative [facility] - 12/01/2024 11:22 AM EDT us Tomeka Rosado LAMP MECHANIC LAB BLOOD ORDERABLES Final Resu lt Performing Organization Address [facility] Co de Phone Number [facility] * (ABNORMAL) [facility]H UA (CLEAN/CATCH) MICROSCOPIC IF INDICATE (11/28/2024 2:55 PM EDT) COLOR URINE LT. YELLOW YELLOW TBH CLARITY [...] 11/28/2024 3:11 PM EDT Narrative [facility] - 11/28/2024 3:38 PM EDT us Tomeka Rosado NP [facility] Final Result Performing Organization Address City/[facility]/ZIP Co de Phone Number [facility] * TBH MICROALB CREAT RATIO RANDOM (11/28/2024 2:55 PM EDT) [facility] MICROALBUMIN URINE RANDOM 1.5 <=30.0 mg/dL TB CREATININE URINE RANDOM 58.76 20.00 - 300.00 mg/dL [facility] MICROALBUM CREATININE RATIO UR 25.5 0.0 - 29.9 mg/g [facility] Comment: NO MICROALBUMINURIA 0-29 MG/G CLINICAL MICROALBUMINURIA 30-300 MG/G MACROALBUMINURIA >300 MG/G 11/28/2024 2:55 PM EDT 11/28/2024 3:11 PM EDT Narrative [facility] - 11/28/2024 4:02 PM EDT Tomeka Rosado NP [facility] Final Result [facility] * Urine culture (11/28/2024 2:55 PM EDT) [facility] NOTE No Growth 2 Days 12/01/2024 10:41 AM EDT [place] Urine Urine specimen obtained by clean catch procedure / Unknown 11/28/2024 2:55 PM EDT 11/29/2024 1:35 PM EDT Comment:Not Otherwise Specif ied Tomeka Rosado NP LAB MICROBIOLOGY - GENERAL [facility]CHER Final Result Performing Organization Address City/[facility] [facility]/ZIP Co de Phone Number [facility] [address] [place] [address], [facility] [address] [place] [address] * (ABNORMAL) POCT glycosylated hemoglobin (Hb A1C) docked device (07/13/2024 9:01 AM EST) [facility] Hemoglobin A1C 7.7 Blood Venous blood specimen / Unknown 07/13/2024 9:01 AM EST Peggy Gatica NP POINT OF CARE TE ST ENTER/EDIT ORDERABLES Edited Result - Final * Colonoscopy (11/28/2020 12:00 PM EDT) Anatomical Region Laterality Modality Endoscopy 11/28/2020 12:0 0 PM EDT Narrative 11/28/2020 12:00 PM EDT PERFORMED AT [facility] LOCATION:[id number] See Scanned Results Procedure Note CONVERSION, GENERIC - 10/29/2022 PERFORMED AT [facility] LOCATION:[id number] See Scanned Results Renea Barajas DO ENDOSCOPY PROCEDURE ORDERABLES Final Result * (ABNORMAL) Microalbumin / creatinine urine ratio (05/16/2020) UCREA 33(L) 39 - 259 [facility] MALB <1.2(L) [facility] Comment: Unable to calculate mALB/Crea ratio, mALB is <1.2 mg/dL mALB reference range not established. 05/16/2020 Yash Schmitz [facility] URINE ORDERABLES Final Re sult [facility] * Color Fundus Photography - OU - Both Eyes (07/08/2018 12:00 PM EST) Anatomical Region Laterality Modality Head Fundus Photograp hy 07/08/2018 12:0 0 PM EST Narrative 07/08/2018 12:00 PM EST PERFORMED AT [facility] LOCATION:[id number] Procedure Note CONVERSION, GENERIC - 10/29/2022 PERFORMED AT [facility] LOCATION:[id number] Aime Steele OPHTH PHOTOGRAPHY Final Result from Last 3 Months or Most Recently Relevant to Health Maintenance Insurance MEDICARE [facility] Advance Directives Healthcare Agents on File Name Relationship Healthcare [facility] Communication Zoe Car Spouse Health Care Agent [email or web address] GI Care Teams Platen Grinder Relationship Specialty Start Date End Date Gerald Low MD [address] [place] [address] PCP - General Family Medicine 04/13/24 Peggy Gatica NP Nurse Practitioner Family Medicine 04/12/24
--- OUTSIDE RECORDS SUMMARY | 2025-01-09 10:05 | XMS_ITS | Encounter Summary ---
Author Organization [facility] Address [address] [place] [address] Care Team Providers Care Moisture Meter Reader Name Role Phone Shaikh MARY Ayala Primary Care Provider [phone] Renea Barajas DO Unavailable [phone] Peggy Gatica SILK SCREEN PRINTER Unavailable [phone] Gerald Low MD Primary Care Provider [phone] Renea Barajas DO Unavailable [phone] Encounter Details Date Type Department Care Team (Late st Contact Info) Description 10/12/2023 Orders Only [facility] [address] [place] [phone] Shaikh Ayala MD [address] [place] [address] Social History Tobacco Use Types Packs/Day Years [...] week 02/18/2023 How often do you attend anabaptist or baptism serv ices? Patient declined 02/18/2023 Do you belong to any clubs o r organizations such as anabaptist groups, unions, fraternal or athletic groups, or [...] Recorded Patient Health Questionnaire-2 Score 0 10/12/2023 [facility] of Occupat ional Health - Occupational Stress [...] [facility] [address] [place] [address] Tomeka Rosado, ANJEL [address] [place] [address] 03/29/2025 9:30 AM EDT Office Visit [facility] [address] [facility] [place] [address] Fahad Sears PA [address] [place] [address] 01/11/2026 10:30 AM EDT Office Visit [facility] [address] [place] [address] Tomeka Rosado, ANJEL [address] [place] [address] documented as of this encounter Visit Diagnoses Not on filedocumented in this encounter Care Teams Moisture Meter Reader Relationship Specialty Start Date End Date Shaikh Ayala MD [address] [place] [address] PCP - General Internal Medicine 07/15/23 04/11/24 Renea Barajas DO [address] [facility] [address] [place] [address] PCP - ACO Reach 08/14/23 07/21/24 Gerald Low MD [address] [place] [address] PCP - General Family Medicine 04/13/24 Renea Barajas DO 17[address] [facility] 200 [facility] [place] [address] PCP - ACO Reach 07/29/24 09/15/24 Peggy Gatica NP [address] [address] Nurse Practitioner Family Medicine 04/12/24 documented as of this encounter
--- OUTSIDE RECORDS SUMMARY | 2025-01-09 10:05 | XMS_ITS | Clinical Summary ---
Author Organization [employer] [facility] tem Address [id number] [address] [place] [address] Care Team Providers Care Aircraft Avionics Technician Name Role Phone Renea Barajas DO Primary [...] Recently Relevant to Health Maintenance Insurance MEDICARE [id number] PLAN Care Teams Aircraft Avionics Technician Relationship Specialty Start Date End Date Renea Barajas DO PCP - General Family Medicine 11/21/20
--- OUTSIDE RECORDS SUMMARY | 2025-01-09 10:05 | XMS_ITS | Encounter Summary ---
Author Organization [facility] Address [address] [place] [address] Care Team Providers Care Real Estate Associate Name Role Phone Shaikh MARY Ayala Primary Care Provider [phone] Renea Barajas DO Unavailable [phone] Peggy Gatica TRUST CLERK Unavailable Gerald Low MD Primary Care Provider [phone] Renea Barajas DO Unavailable [phone] Reason for Visit * Reason Comments Med Refill Encounter Details Date Type Department Care Team (Late st Contact Info) Description 09/25/2023 Refill [facility] Family Medicine [address] [facility] [place] [address] Renea Barajas, DO 17[address] [facility] 200 [place] [address] Social History Tobacco Use Types [...] week 02/18/2023 How often do you attend catholic or shinto serv ices? Patient declined 02/18/2023 Do you belong to any clubs o r organizations such as catholic groups, unions, fraternal or athletic groups, or [...] Recorded Patient Health Questionnaire-2 Score 0 08/11/2023 [facility] of Occupat ional Health - Occupational Stress [...] place to sleep or slept in a mcc (including now)? No 02/18/2023 Sex and Gender [...] Office Visit [facility] [address] [place] [address] Tomeka Rosado NP [address] [place] [address] 03/29/2025 9:30 AM EDT Office Visit [facility] [address] [place] [address] Fahad Sears PA [address] [place] [address] 01/11/2026 10:30 AM EDT Office Visit [facility] [address] [place] [address] Tomeka Rosado, ANJEL [address] [place] [address] documented as of this encounter Visit Diagnoses Not on filedocumented in this encounter Care Teams Real Estate Associate Relationship Specialty Start Date End Date Shaikh Ayala MD [address] [place] [address] PCP - General Internal Medicine 07/15/23 04/11/24 Renea Barajas DO [address] [facility] 200 [facility] [place] [address] PCP - ACO Reach 08/14/23 07/21/24 Gerald Low MD [address] [place] [address] PCP - General Family Medicine 04/13/24 Renea Barajas DO 17[address] [facility] [address] [facility] [place] [address] PCP - ACO Reach 07/29/24 09/15/24 Peggy Gatica NP 17[address] [facility] [address] [place] [address] Nurse Practitioner Family Medicine 04/12/24 documented as of this encounter
--- OUTSIDE RECORDS SUMMARY | 2025-01-09 10:05 | XMS_ITS ---
Author Organization [facility] Address [address] [place] [address] Care Team Providers Care Dog Handler Or Trainer Name Role Phone Tomeka Rosado MD Primary Care Provider [phone] Active Problems Problem Noted Date Diagnosed Date Arthritis 05/31/2024 History of tobacco abuse 05/31/2024 Hypersomnia 05/31/2024 URTI (acute upper respiratory infection) 024 Leukemoid reaction 10/12/2023 10/27/2023 Overview (10/27/2023): Last Assessment & Plan: WBC of 19 k on labs drawn at [facility] - recheck Pneumonia of left [...] that he may benefit from seeing a digital sales manager for DM, adrenal mass Abnormal nuclear stress test 07/15/202310/2023 Overview (08/18/2023): Last Assessment & Plan: Nuclear stress test 07/08 - perfusion defect in LAD distribution. Asymptomatic. Instructed to start using ASA. Patient scheduled for [facility] on 07/29/23 No prior hx of CAD Encounter to establish care with new doctor 06/1708/18/2023 Overview (08/18/2023): Last Assessment & Plan: New Patient, here to establish care. Reviewed medical, surgical and social hx. Reviewed available old records. Reviewed and updated medication list. New Patient for this practice. Was previously established with Dr Barajas but had to switch since she moved to [facility]. Near syncope 07/10/2023 Assessment & Plan (08/18/2023 11:07 AM EST): Currently stable, no further episode noted Assessment & Plan (07/10/2023 5:18 PM EST): Recently admitted to [facility] for near syncope, bradycardia, abnormal [...]
--- OUTSIDE RECORDS SUMMARY | 2025-01-09 10:05 | XMS_ITS | Clinical Summary ---
Author Organization [facility] Address [address] [facility], [address] [place] [address] Care Team Providers Care Administrative Coordinator Name Role Phone Shaikh MARY Ayala Primary Care Provider [phone] Allergies Active Allergy Reactions Criticality Noted Date Comments Ciprofloxacin Other (See Comments) 11/24/2022 Other Reaction(s): ?change in mental status TIA Erythromycin Other (See Comments) 04/28/2023 Lisinopril Cough 06/24/2021 Medications allopurinol (ZYLOPRIM) 300 MG tablet Take 1 tablet by mouth daily 1 Active empagliflozin (JARDIANCE) 25 MG tablet Take 1 tablet by mouth daily 4 Active fluticasone (FLONASE) 50 MCG/ACT nasal spray 2 sprays daily 1 Active furosemide (LASIX) 20 MG tablet Take 1 tablet by mouth daily 1 Active glimepiride (AMARYL) 4 MG tablet Take 1 tablet by mouth every morning (before breakfast) 1 Active FREESTYLE LITE strip USE DIRECTED ONCE TEST 4 Active losartan (COZAAR) 100 MG tablet Take 1 tablet by mouth daily 1 Active rosuvastatin (CRESTOR) 10 MG tablet Take 2 tablets by mouth daily 1 Active bisoprolol (ZEBETA) 5 MG tablet Take 1 tablet by mouth in the morning and at bedtime Active tamsulosin (FLOMAX) 0.4 MG capsule TAKE 1 CAPSULE DAILY 90 capsule 3 5 Active amLODIPine (NORVASC) 10 MG tablet Take 0.5 tablets by mouth as needed Active omeprazole (PRILOSEC) 40 MG delayed release capsule Take 1 capsule by mouth every morning (before breakfast) 4 Active aspirin 81 MG chewable tablet Take 1 tablet by mouth daily 4 025 Discontinued pantoprazole (PROTONIX) 40 MG tablet Take 1 tablet by mouth 2 times daily 4 025 Discontinued sucralfate (CARAFATE) 1 GM tablet Take 1 tablet by mouth 4 times daily 4 025 Discontinued Encounters Date Type Department Care Team Description 12/20/2024 10:15 AM EDT Office Visit [facility] Specialty Providers on [address] [address] Ky Justice PA-C Adrenal adenoma, left (Primary Dx); Bilateral renal cysts; BPH with obstruction/lower urinary tract symptoms 12/19/2024 Results Follow-Up [facility] Specialty Providers on [address] [address] Belen Camargo APRN - CNP 12/13/2024 9:11 AM EDT - 12/15/2024 11:59 PM EDT Hospital Encounter [facility] MRI [address] [place] [address] Ky Justice PA-C Bilateral renal cysts; Adrenal adenoma, left Discharge Disposition: Home or Self Care 12/08/2024 7:50 AM EDT - 12/08/2024 11:59 PM EDT Hospital Encounter [facility] Laboratory [address] [place] [address] Bilateral renal cysts; Adrenal adenoma, left Discharge [...] Sign Reading Time Taken Comments Blood Pressure 128/68 12/20/2024 10:21 AM EDT Pulse 71 12/20/2024 10:21 AM EDT Temperature - - Respiratory Rate - - Oxygen Saturation 94% 12/20/2024 10:21 AM EDT Inhaled Oxygen Concentration - - Weight 103.4 kg (228 lb) 12/20/2024 10:21 AM EDT Height 177.8 cm (5' 10 ) 09/07/2023 10:09 AM EDT Body Mass Index 32.71 09/07/2023 10:09 AM EDT Plan of Treatment Upcoming Encounters Date Type Department Care Team (Late st Contact Info) Description 12/20/2025 8:30 AM EDT Appointment [address] [address] 12/26/2025 9:30 AM EDT Office Visit [facility] Specialty Providers on [address] [address] Ky Justice, PACheyenneC [address] [place] [address] [facility] [address] [place] [address] yearly with MRI Health Maintenance Due Date Last [...] Procedure Name Priority Date/Time Associated Diagnosis Comments MRI ABDOMEN W WO CONTRAST Routine 12/13/2024 10:30 AM EDT Bilateral renal cysts Adrenal adenoma, left BUN & CREATININE Routine 12/08/2024 7:50 AM EDT Bilateral renal cysts Adrenal adenoma, left from Last 3 Months Results * MRI ABDOMEN W WO CONTRAST (12/13/2024 10:30 AM EDT) Anatomical Region Laterality Modality Abdomen Magnetic Resonan ce 12/13/2024 10:3 0 AM EDT Impressions 12/17/2024 3:57 PM EDT No significant interval change in 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 Narrative 12/17/2024 3:57 PM EDT EXAM: MRI ABDOMEN W WO CONTRAST CLINICAL INFORMATION: 74 years Male. Bilateral renal cysts TECHNIQUE: MRI of the abdomen was performed utilizing multiple pulse sequences in multiple planes before and after intravenous gadolinium contrast. Dynamic postcontrast technique was utilized. COMPARISON: 12/01/2023 FINDINGS: LIVER: Normal signal intensity. No hepatic steatosis. No suspicious enhancing masses. No intrahepatic biliary dilation. GALLBLADDER: Status post cholecystectomy. COMMON BILE DUCT: Normal. PANCREAS: Normal signal intensity. No evidence of stranding or increased T2 signal surrounding the pancreas.. No pancreatic ductal dilation. Kidneys: No hydronephrosis. Renal contour is normal. Unchanged multiseptated left renal cyst measuring 5.9 cm and simple left renal cyst measuring 4.1 cm. No enhancing nodule is noted. Unchanged left adrenal nodule, measuring 2 cm with signal dropout representing lipid rich adrenal adenoma. Spleen and right adrenal glands are unremarkable. Visualized bowel demonstrates no evidence of obstruction or inflammation. No lymphadenopathy. Vascular structures are unremarkable. Normal bone marrow signal intensity. Report electronically signed by: Dr. Veronica Patel Procedure Note Veronica Patel MD - 12/17/2024 EXAM: MRI ABDOMEN W WO CONTRAST CLINICAL INFORMATION: 74 years Male. Bilateral renal cysts TECHNIQUE: MRI of the abdomen was performed utilizing multiple pulsesequences in multiple planes before and after intravenous gadolinium contrast.Dynamic postcontrast technique was utilized. COMPARISON: 12/01/2023 FINDINGS: LIVER: Normal signal intensity. No hepatic steatosis. No suspiciousenhancing masses. No intrahepatic biliary dilation. GALLBLADDER: Status post cholecystectomy. COMMON BILE DUCT: Normal. PANCREAS: Normal signal intensity. No evidence of stranding or increasedT2 signal surrounding the pancreas.. No pancreatic ductal dilation. Kidneys: No hydronephrosis. Renal contour is normal. Unchangedmultiseptated left renal cyst measuring 5.9 cm and simple left renal cyst measuring 4.1cm. No enhancing nodule is noted. Unchanged left adrenal nodule, measuring 2 cm with signal dropoutrepresenting lipid rich adrenal adenoma. Spleen and right adrenal glands areunremarkable. Visualized bowel demonstrates no evidence of obstruction orinflammation. No lymphadenopathy. Vascular structures are unremarkable. Normal bonemarrow signal intensity. Report electronically signed by: Dr. Veronica Patel IMPRESSION: No significant interval change in left renal Bosniak type II (simple)cysts and left adrenal adenoma. Ky Justice PA-C [facility] MRI ORDERABLES Final R esult * (ABNORMAL) BUN & Creatinine (12/08/2024 7:50 AM EDT) BUN 24(H) 9 - 20 mg/dL 12/08/2024 7:50 AM EDT [facility] Creatinine 1.07 0.66 - 1.25 mg/dL 12/08/2024 7:50 AM EDT [facility] Est, Glom Filt Rate 72 >60 mL/min/1.7 3m2 12/08/2024 7:50 AM EDT [facility] Comment: GFR calculated using CKD-EPI (2020) [...] CHEMISTRY ORDERABLES Final Result Performing Organization Address City/State/[facility] [place] [address] from Last 3 Months Insurance MEDICARE Member Subscriber Plan / Payer (Ef fective 2014-Present) Name:Leonard Cart Yissel Relation to Subscriber:Self Name:Brent Car Payer ID:Not on file Group ID:Not on file Type:Not on file Address: [address] Care Teams Administrative Coordinator Relationship Specialty Start Date End Date Shaikh Ayala MD PCP - General 07/31/23
--- OUTSIDE RECORDS SUMMARY | 2025-01-09 10:05 | XMS_ITS | Encounter Summary ---
Author Organization [facility] Address [address] [place] [address] Care Team Providers Care Emt I/99 Name Role Phone Peggy Gatica TRUCK DRIVER TEAMSTER Unavailable [phone] Gerald Low MD Primary Care Provider Encounter Details Date Type Department Care Team (Late st Contact Info) Description 12/19/2024 Orders Only [facility] [address] [place] [address] Jai Subramanian MD [address] [place] [address] Social History Tobacco Use Types Packs/Day Years [...] How often do you attend chur or temple services? Patient declined 07/06/2024 Do you belong to any clubs o r organizations such as episcopalian groups, unions, fraCennox or athletic groups, or school groups? No [...] Recorded Patient Health Questionnaire-2 Score 0 01/11/2024 [facility] of Occupat ional Health - Occupational [...] place to sleep or slept in a correction (including now)? No 02/18/2023 Housing Stability Vital [...] time in the past [address] [facility], were you homeless or living in a correction (including now)? No 07/06/2024 Sex and Gender [...] Visit [facility] [address] [place] [address] Tomeka Rosado NP [address] [place] [address] 03/29/2025 9:30 AM EDT [facility] [address] [place] [address] Fahad Sears PA [address] [place] [address] 01/11/2026 10:30 AM EDT Office Visit [facility] [address] [place] [address] Tomeka Rosado NP [address] [place] [address] documented as of this encounter Procedures Procedure Name Priority Date/Time Associated Diagnosis Comments ECG 12-LEAD Routine 12/19/2024 10:34 AM EDT documented in this encounter Results * ECG 12 lead (12/19/2024 10:34 AM EDT) Jai Subramanian MD ECG ORDERABLES Final Result documented in this encounter Visit Diagnoses Not on filedocumented in this encounter Care Teams Emt I/99 Relationship Specialty Start Date End Date Gerald Low MD [address] [place] [address] PCP - General Family Medicine 04/13/24 Peggy Gatica NP Nurse Practitioner Family Medicine 04/12/24 documented as of this encounter
--- OUTSIDE RECORDS SUMMARY | 2025-01-09 10:05 | XMS_ITS | Encounter Summary ---
Author Organization [facility] Address [address] [place] [address] Care Team Providers Care Armament Aircraft Mechanic Name Role Phone Renea Barajas DO Primary Care Provider [phone] Shaikh MARY Ayala Primary Care Provider [phone] Renea Barajas DO Unavailable [phone] Peggy Gatica BATTERY CONTAINER TESTER ALUMINUM Unavailable [phone] Gerald Low MD Primary Care Provider [phone] Renea Barajas DO Unavailable [phone] Encounter Details Date Type Department Care Team (Late st Contact Info) Description 12/02/2022 Abstract [facility] Family Medicine [address] [place] [address] Renea Barajas DO [address] [address] Social History Tobacco Use Types [...] Visit [facility] [address] [place] [address] Tomeka Rosado, ANJEL [address] [place] [address] 03/29/2025 9:30 AM EDT Office Visit [facility] [address] [place] [address] Fahad Sears PA [address] [facility] [place] [address] 01/11/2026 10:30 AM EDT Office Visit [facility] [address] [place] [address] Tomeka Rosado NP [address] [place] [address] documented as of this encounter Visit Diagnoses Not on filedocumented in this encounter Care Teams Armament Aircraft Mechanic Relationship Specialty Start Date End Date Renea Barajas DO PCP - General Family Medicine 11/24/22 07/14/23 Shaikh Ayala MD [address] [place] [address] PCP - General Internal Medicine 07/15/23 04/11/24 Renea Barajas DO [address] [facility] [address] [facility] [place] [address] PCP - ACO Reach 08/14/23 07/21/24 Gerald Low MD [address] [place] [address] PCP - General Family Medicine 04/13/24 Renea Barajas DO [address] [facility] [address] [facility] [place] [address] PCP - ACO Reach 07/29/24 09/15/24 Peggy Gatica NP [address] [facility] [place] [facility] [place] [address] Nurse Practitioner Family Medicine 04/12/24 documented as of this encounter
--- OUTSIDE RECORDS SUMMARY | 2025-01-09 10:06 | XMS_ITS | Encounter Summary ---
Author Organization [facility] Address [address] [place] [address] Care Team Providers Care Knitting Inspector Name Role Phone Shaikh MARY Ayala Primary Care Provider [phone] Renea Barajas DO Unavailable [phone] Peggy Gatica GAS MASK ASSEMBLER Unavailable [phone] Gerald Low MD Primary Care Provider [phone] Renea Barajas DO Unavailable [phone] Encounter Details Date Type Department Care Team (Late st Contact Info) Description 08/13/2023 Orders Only [facility] [address] [place] [phone] Shaikh Ayala MD [address] [place] [address] Social History Tobacco Use Types Packs/Day Years [...] week 02/18/2023 How often do you attend shinto or yazidi serv ices? Patient declined 02/18/2023 Do you belong to any clubs o r organizations such as shinto groups, unions, fraternal or athletic groups, or [...] Recorded Patient Health Questionnaire-2 Score 0 08/11/2023 [facility] of Occupat ional Health - Occupational Stress [...] place to sleep or slept in a prison (including now)? No 02/18/2023 Sex and Gender [...] Visit [facility] [address] [place] [address] Tomeka Rosado NP [address] [place] [address] 03/29/2025 9:30 AM EDT Office Visit [facility] [address] [place] [address] Fahad Sears PA [address] [place] [address] 01/11/2026 10:30 AM EDT Office Visit [facility] [address] [place] [address] Tomeka Rosado NP [address] [place] [address] documented as of this encounter Procedures Procedure [...] on filedocumented in this encounter Care Teams Knitting Inspector Relationship Specialty Start Date End Date Shaikh Ayala MD [address] [place] [address] PCP - General Internal Medicine 07/15/23 04/11/24 Renea Barajas DO [address]15 [facility] 200 [place] [address] PCP - ACO Reach 08/14/23 07/21/24 Gerald Low MD [address] [place] [address] PCP - General Family Medicine 04/13/24 Renea Barajas DO [address] [facility] [address] [facility] [place] [address] PCP - ACO Reach 07/29/24 09/15/24 Peggy Gatica NP [address] [address] Nurse Practitioner Family Medicine 04/12/24 documented as of this encounter
== END 2025-01-09 10:03 | disposition home or self-care (01) ==
LOC: RAD 10:03
PROVIDERS: PCP Nurse Practitioner; Visit Provider Nurse Practitioner
DX: M25.472 Effusion, left ankle (principal)
CPT/HCPCS: 73610

== ENCOUNTER 2025-03-20 02:32 | Inpatient (IN) | payer MEDICARE, OTHER, SELFPAY ==
--- OUTSIDE RECORDS SUMMARY | 2023-11-04 04:30 | XMS_ITS ---
Author Organization [facility] in [place] Address [address] [place] [address] Care Team Providers Care Records Management Manager Name Role Phone Shaikh Ayala MD Primary Care Provider Alan East Unavailable [phone] Allergies Allergen (clinical drug ingredient) Drug/Non Drug Allergy documented on EMR Reaction Allergy Type Onset Date Status azithromycin Azithromycin Unknown Drug Allergy A ctive lisinopril Lisinopril cough Drug Allergy Activ e ciprofloxacin Ciprofloxacin Unknown Drug Allergy Active REASON FOR VISIT KAREEN Medications Medication SIG (Take, Route, Frequency, Duration) Notes Start Date End Date Status Losartan Potassium 100 MG Oral; Duration: 90 Days Active Jardiance 25 MG Oral; Duration: 90 Days Active Sucralfate 1 GM Oral; Duration: 90 Days Active Rosuvastatin Calcium 20 MG Oral; Duration: 90 Days Active Pantoprazole Sodium 40 MG Oral; Duration: 30 Days Active hydrALAZINE HCl 50 MG 1 tablet with food Orally BID; Duration: 90 days Active Glimepiride 4 MG Oral; Duration: 90 Days Active Furosemide 20 MG Oral; Duration: 90 Days Active Bisoprolol Fumarate 5 MG Oral; Duration: 90 Days Active Aspirin Low Dose 81 MG CHEW 1 TABLET (81 MG) IN THE MORNING Oral; Duration: 90 Days Active Allopurinol 300 MG Oral; Duration: 90 Days Active Tamsulosin HCl 0.4 MG Oral; Duration: 90 Days Active Fluticasone Propionate 50 MCG/ACT 1 spray in each nostril Nasally Once a day Active Encounters Encounter Location Date Provider Diagnosis Pulmonary Medicine [place] [address] [place] [address] 11/04/2023 Alan Francis Plan Of Treatment No Information Progress Notes * Brent CAR FDOB: [birth year] (74 yo M)Acc No.[id number]:11/04/2023 UNLOCKED PROGRESS NOTE New Patient Patient: Brent MORTON Provider: Abdirahman Francis DO :1950 A ge:73 Y S ex:Male Date:11/04/2023 Address:[address] [place] [address], [address] [place], [id number] Pcp:Shaikh Jamie MD Subjective: * Chief Complaints: * 1 . KAREEN. * HPI: G eneral: Patient is referred from for KAREEN. E pworth Sleepiness Scale: [place] Sleepiness Scale C jhoan of dozing while sitting and reading:?- C jhoan of dozing while watching TV: - C jhoan of dozing while sitting in a public place: - C jhoan of dozing as a passenger in a car for an hour without a break: - C jhoan of dozing while lying down in the afternoon to rest: - C jhoan of dozing while sitting and talking to someone: - C jhoan of dozing while sitting quietly after lunch: - C jhoan of dozing in a stopped car for a few minutes in traffic: - T OTAL SCORE: 0 S TOP-BANG Sleep Apnea Questionnaire: STOP D o you SNORE loudly (louder than talking or loud enough to be heard through closed doors)? N o D o you often feel TIRED, fatigued, or sleepy during daytime? N o H as anyone OBSERVED you stop breathing during your sleep? N o D o you have or are you being treated for high blood PRESSURE? N o BANG B GA more than 35kg/m2? N o A GE over 50 years old? N o N HAFSA circumference > 16 inches (40cm)??No G TONY: Male? N o Total Score: _ ____. * Medical History: * Surgical History: C [...] Assessment: Plan: * Treatment: * Preventive Medicine: COVID Vaccination: H as patient had COVID Vaccination? COVID Vaccination Y es 04/28/2023 Immunization Status: P neumovacc p neumovacc 23-02/24/2023. I nfluenza 1 . Z ostivax 1 07/25/2015. B oostrix 0 10/27/2018. * * Electronic signature of Katalina Francis DO on 03/20/2025 at 02:37 AM EDT Sign off status: Pending Visit Status: R /S (Rescheduled) * Provider: Abdirahman Francis DO Date: 0 11/04/2023 Generated for Scarlet dobson/Gregorio/Cristin on: 02:37 AM EDT History and Physical Notes * HPI (History of Present Illness) Category Sub-Category Detail Notes Category Not es STOP-BANG Sleep Apnea Questionnaire STOP Do you SNORE loudly (louder than talking or loud enough to be heard through closed doors)?: No Do you often feel TIRED, fatigued, or sl eepy during daytime?: No Has anyone OBSERVED you stop breathing d uring your sleep?: No Do you have or are you being treated for high blood PRESSURE?: No BANG BMI more than 35kg/m2?: No AGE over 50 years old?: No NECK circumference > 16 inches (40cm)?: No GENDER: Male?: No Total Score: Winsted Sleepiness Scale Winsted Sleepiness Scal e Chance of dozing while sitting and reading:: - Chance of dozing while watching TV:: - Chance of dozing while sitting in a publ ic place:: - Chance of dozing as a passenger in a car for an hour without a break:: - Chance of dozing while lying down in the afternoon to rest:: - Chance of dozing while sitting and talki ng to someone:: - Chance of dozing while sitting quietly a fter lunch:: - Chance of dozing in a stopped car for a few minutes in traffic:: - TOTAL SCORE:: 0
[2025-03-20] VITALS (71 sets, daily range): BP systolic 128–182; BP diastolic 68–111; PULSE 51–90; TEMP 36.4–36.6; O2SAT 91–98; BMI 33.0; BMI 32.9
--- OUTSIDE RECORDS SUMMARY | 2025-03-20 02:37 | XMS_ITS | Encounter Summary ---
Author Organization [facility] Address [address] [place] [address] Care Team Providers Care Faculty Research Physician Name Role Phone Shaikh MARY Ayala Primary Care Provider [phone] Renea Barajas DO Unavailable [phone] Peggy Gatica ENDLESS STEAMER TENDER Unavailable Gerald Low MD Primary Care Provider [phone] Renea Barajas DO Unavailable [phone] Encounter Details Date Type Department Care Team (Late st Contact Info) Description 07/30/2023 Orders Only [facility] [address] [place] [address] Shaikh Ayala MD [address] [place] [address] Social History Tobacco Use Types Packs/Day Years [...] week 02/18/2023 How often do you attend samaritan or alevism serv ices? Patient declined 02/18/2023 Do you belong to any clubs o r organizations such as samaritan groups, unions, fraternal or athletic groups, or [...] Recorded Patient Health Questionnaire-2 Score 0 07/15/2023 [facility] [place] of Occupat ional Health - Occupational Stress [...] place to sleep or slept in a group home (including now)? No 02/18/2023 Sex and Gender Information Value Date Recorded Sex Assigned at Not on file Legal Sex Male 7:35 PM EDT Gender Identity Male 08/27/2022 7:35 PM EDT Sexual Orientation Not on file documented as of this encounter Plan of Treatment Upcoming Encounters Date Type Department Care Team (Late st Contact Info) Description 03/29/2025 9:30 AM EDT Office Visit [facility] [address] [place] [address] Fahad Sears PA [address] [place] [address] documented as of this encounter Procedures Procedure Name Priority Date/Time Associated Diagnosis Comments US RENAL COMPLETE Routine 07/17/2023 11:51 AM EST documented in this encounter Results * US renal complete (07/17/2023 11:51 AM EST) Anatomical Region Laterality Modality Kidney Ultrasound us Shaikh Jamie HERNANDEZ IMG US PROCEDURES Final Result documented in this encounter Visit Diagnoses Not on filedocumented in this encounter Care Teams Faculty Research Physician Relationship Specialty Start Date End Date Shaikh Ayala MD PCP - General Internal Medicine 07/15/23 04/11/24 Renea Barajas DO [address] [facility] [address] [place] [address] PCP - ACO Reach 08/14/23 07/21/24 Gerald Low MD [address] [facility] [address] [place] [address] PCP - General Family Medicine 04/13/24 Renea Barajas DO 1715 [facility] [address] [place] [address] PCP - ACO Reach 07/29/24 09/15/24 Peggy Gatica NP [address] [facility] [address] [place] [address] Nurse Practitioner Family Medicine 04/12/24 documented as of this encounter
--- OUTSIDE RECORDS SUMMARY | 2025-03-20 02:37 | XMS_ITS | Encounter Summary ---
Author Organization [facility] Address [address] [place] [address] Care Team Providers Care Icd 9 Coder Name Role Phone Peggy Gatica NP Unavailable Gerald Low MD Primary Care Provider [phone] Encounter Details Date Type Department Care Team (Late st Contact Info) Description 01/09/2025 Results Follow-Up [facility] [address] [place] [address] Ruby Miller MA XR ANKLE LT MIN 3V Social History Tobacco Use Types Packs/Day Years [...] How often do you attend chur or restoration services? Patient declined 07/06/2024 Do you belong to any clubs o r organizations such as religious groups, unions, fraternal or athletic groups, or [...] Recorded Patient Health Questionnaire-2 Score 0 01/09/2025 [facility] of Occupat ional Health - Occupational [...] place to sleep or slept in a jail (including now)? No 02/18/2023 Housing Stability Vital [...] time in the past 12 m [facility], were you homeless or living in a jail (including now)? No 07/06/2024 Sex and Gender [...] things Not at all 01/09/2025 8:34 AM EDT Jeremiah Miller MA Feeling down, depressed, or hopeless Not at all 01/09/2025 8:34 AM EDT Jeremiah Miller MA Patient Health Questionnaire-2 Score 0 01/09/2025 8:34 AM EDT Talia Miller MA * Question Answer Date of Assessment Author Trouble falling or staying asleep, or sleeping too much Nearly every day 01/09/2025 8:34 AM LIZETT Jeremiah Miller MA Feeling tired or having little energy Nearly every day 01/09/2025 8:34 AM LIZETT Jeremiah Miller MA Poor appetite or overeating Nearly every day 01/09/2025 8:34 AM LIZETT Jeremiah Miller MA Feeling bad about yourself - or that you are a failure or have let yourself or your family down Several days 01/09/2025 8:34 AM LIZETT Jeremiah Miller MA Trouble concentrating on things, such as reading the newspaper or watching television Not at all 01/09/2025 8:34 AM LIZETT Jeremiah Miller MA Moving or speaking so slowly that other people could have noticed? Or the opposite - being so fidgety or restless that you have been moving around a lot more than usual. Nearly every day 01/09/2025 8:34 AM LIZETT Jeremiah Miller MA Thoughts that you would be better off or hurting yourself in some way Not at all 01/09/2025 8:34 AM LIZETT Jen Miller MA Patient Health Questionnaire-9 Score 13 01/09/2025 8:34 AM EDT Talia Miller MA documented as of this encounter Plan of Treatment Upcoming Encounters Date Type Department Care Team (Late st Contact Info) Description 03/29/2025 9:30 AM EDT Office Visit [facility] [address] [place] [address] Fahad Sears PA [address] [place] [address] documented as of this encounter Visit Diagnoses Not on filedocumented in this encounter Additional Health Concerns Assessment Noted Time PHQ-9 Depression Total Score: 13 01/09/2 025 8:34 AM EDT documented as of this encounter Care Teams Icd 9 Coder Relationship Specialty Start Date End Date Gerald Low MD PCP - General Family Medicine 04/13/24 Peggy Gatica NP Nurse Practitioner Family Medicine 04/12/24 documented as of this encounter
--- OUTSIDE RECORDS SUMMARY | 2025-03-20 02:37 | XMS_ITS | Encounter Summary ---
Author Organization [facility] Address [address] [place] [address] Care Team Providers Care Command And Control Systems Integrator Name Role Phone Peggy Gatica EXTERMINATOR HELPER Unavailable [phone] Gerald Low MD Primary Care Provider [phone] Encounter Details Date Type Department Care Team (Late st Contact Info) Description 12/19/2024 Orders Only [facility] [address] [facility] [address] Jai Subramanian MD [address] [place] [address] Social History Tobacco Use Types [...] How often do you attend chur or spiritism services? Patient declined 07/06/2024 Do you belong to any clubs o r organizations such as voodoo groups, unions, fraternal or athletic groups, or [...] Recorded Patient Health Questionnaire-2 Score 0 01/11/2024 [facility] of Occupat ionnj Health - Occupational Stress Questionnaire Answer Date [...] place to sleep or slept in a snf (including now)? No 02/18/2023 Housing Stability Vital Sign Answer Saurav e Recorded In the last 12 months, was t here a time when you were not able to pay the mortgage or rent on time? No 07/06/2024 In the past 12 months, how m any times have you moved where you were living? 0 07/06/2024 At any time in the past 12 m [facility], were you homeless or living in a snf (including now)? No 07/06/2024 Sex and Gender [...] Office Visit [facility] [address] [place] [address] Fahad Sears PA [address] [place] [address] documented as of this encounter Procedures Procedure Name Priority Date/Time Associated Diagnosis Comments ECG 12-LEAD Routine 12/19/2024 10:34 AM EDT documented in this encounter Results * ECG 12 lead (12/19/2024 10:34 AM EDT) Jai Subramanian MD ECG ORDERABLES Final Result documented in this encounter Visit Diagnoses Not on filedocumented in this encounter Care Teams Command And Control Systems Integrator Relationship Specialty Start Date End Date Gerald Low MD PCP - General Family Medicine 04/13/24 Peggy Gatica NP Nurse Practitioner Family Medicine 04/12/24 documented as of this encounter
--- OUTSIDE RECORDS SUMMARY | 2025-03-20 02:37 | XMS_ITS | Encounter Summary ---
Author Organization [facility] Address [address] [place] [address] Care Team Providers Care Curtain Stitcher Name Role Phone Peggy Gatica MOLDING SUPERVISOR Unavailable [phone] Gerald Low MD Primary Care Provider [phone] Renea Barajas DO Unavailable Encounter Details Date Type Department Care Team (Late st Contact Info) Description 07/29/2024 Orders Only [facility] [address] [place] [address] [place] [address] [place] [id number] Social History Tobacco Use Types Packs/Day Years [...] week 07/06/2024 How often do you attend [facility] or sabianism services? Patient declined 07/06/2024 Do you belong [...] Recorded Patient Health Questionnaire-2 Score 0 01/11/2024 [facility] [place] of Occupat ional Health - Occupational Stress [...] in a retirement (including now)? No 02/18/2023 Housing Stability Vital Sign Answer Saurav e Recorded In the last 12 months, was t here a time when you were not able to pay the mortgage or rent on time? No 07/06/2024 In the past 12 months, how m any times have you moved where you were living? 0 07/06/2024 At any time in the past 12 m [facility], were you homeless or living in a retirement (including now)? No 07/06/2024 Sex and Gender Information Value Date Recorded Sex Assigned at Not on file Legal Sex Male 7:35 PM EDT Gender Identity Male 08/27/2022 7:35 PM EDT Sexual Orientation Not on file documented as of this encounter Plan of Treatment Upcoming Encounters Date Type Department Care Team (Late st Contact Info) Description 03/29/2025 9:30 AM EDT Office Visit [facility] [place] [address] Fahad Sears PA [address] [place] [address] documented as of this encounter Procedures Procedure Name Priority Date/Time Associated Diagnosis Comments SCANNED LABS Routine 07/29/2024 8:55 AM EST documented in this encounter Results * SCANNED LABS (07/29/2024 8:55 AM EST) Anisa Magaña MD LAB CHG PERFORMABLES Final Resul t documented in this encounter Visit Diagnoses Not on filedocumented in this encounter Care Teams Curtain Stitcher Relationship Specialty Start Date End Date Gerald Low MD PCP - General Family Medicine 04/13/24 Renea Barajas DO 1715 [facility] 200 [place] [address] PCP - ACO Reach 07/29/24 09/15/24 Peggy Gatica NP Nurse Practitioner Family Medicine 04/12/24 documented as of this encounter
--- OUTSIDE RECORDS SUMMARY | 2025-03-20 02:37 | XMS_ITS | Encounter Summary ---
Author Organization [facility] Address [address] [place] [address] Care Team Providers Care Microfilm Camera Operator Name Role Phone Shaikh MARY Ayala Primary Care Provider [phone] Renea Barajas DO Unavailable [phone] Pgegy Gatica CREDIT CARD SPECIALIST Unavailable [phone] Gerald Low MD Primary Care Provider [phone] Renea Barajas DO Unavailable [phone] Encounter Details Date Type Department Care Team (Late st Contact Info) Description 10/12/2023 Orders Only [facility] [address] [place] [address] Shaikh Ayala MD [address] [place] [address] Social History Tobacco Use Types Packs/Day Years [...] week 02/18/2023 How often do you attend restorationist or latter day serv ices? Patient declined 02/18/2023 Do you belong to any clubs o r organizations such as restorationist groups, unions, fraternal or athletic groups, or [...] Recorded Patient Health Questionnaire-2 Score 0 10/12/2023 [facility] [place] of Occupat ional Health - Occupational Stress [...] Description 03/29/2025 9:30 AM EDT Office Visit [facility] [place] [address] Fahad Sears PA [address] [place] [address] documented as of this encounter Visit Diagnoses Not on filedocumented in this encounter Care Teams Microfilm Camera Operator Relationship Specialty Start Date End Date Shaikh Ayala MD PCP - General Internal Medicine 07/15/23 04/11/24 Renea Barajas DO 1715 [facility] 200 [place] [address] PCP - ACO Reach 08/14/23 07/21/24 Gerald Low MD [address] [facility] [address] [place] [address] PCP - General Family Medicine 04/13/24 Renea Barajas DO 17[address] [facility] [address] [place] [address] PCP - ACO Reach 07/29/24 09/15/24 Peggy Gatica NP [address] [facility] 200 [place] [address] Nurse Practitioner Family Medicine 04/12/24 documented as of this encounter
--- OUTSIDE RECORDS SUMMARY | 2025-03-20 02:37 | XMS_ITS | Encounter Summary ---
Author Organization [facility] Address [address] [place] [address] Care Team Providers Care Recruitment And Outreach Assistant Name Role Phone Shaikh MARY Ayala Primary Care Provider [phone] Renea Barajas DO Unavailable [phone] Peggy Gatica OLIVE PACKER Unavailable [phone] Gerald Low MD Primary Care Provider [phone] Renea Barajas DO Unavailable [phone] Encounter Details Date Type Department Care [...] week 02/18/2023 How often do you attend adventist or bahai serv ices? Patient declined 02/18/2023 Do you belong to any clubs o r organizations such as adventist groups, unions, fraternal or athletic groups, or [...] Recorded Patient Health Questionnaire-2 Score 0 11/16/2023 [facility] - Occupational Stress Questionnaire Answer Date [...] EDT Office Visit [facility] [address] [place] [address] Fahad Sears PA [address] [place] [address] documented as of this encounter Procedures Procedure Name Priority Date/Time Associated Diagnosis Comments CT CHEST W IV CONTRAST 12/31/2023 7:19 AM EDT documented in this encounter Results * CT chest w IV contrast (12/31/2023 7:19 AM EDT) Anatomical Region Laterality Modality Body, Chest Computed Tomogra phy 12/31/2023 7:19 AM EDT Narrative 01/01/2024 9:17 PM EDT Interpreted By: Lul Villegas and Andrew Mckenzie STUDY: CT CHEST W IV CONTRAST; 12/31/2023 7:55 am INDICATION: Signs/Symptoms:LUNG NODULE. COMPARISON: CT chest abdomen pelvis 05/26/2023 ACCESSION NUMBER(S): [id number] ORDERING CLINICIAN: NEFTALI GARLAND TECHNIQUE: Helical data [...] Morales MD. This study was interpreted at [place], [place]. Signed by: Lul Villegas 01/01/2024 9:17 PM Dictation workstation: [id number] Procedure Note Radiology, Radiologist, - 01/01/2024 Interpreted By: Lul Villegas and Maltbie Grace STUDY: CT CHEST W IV CONTRAST; 12/31/2023 7:55 am INDICATION: Signs/Symptoms:LUNG NODULE. COMPARISON: CT chest abdomen pelvis 05/26/2023 ACCESSION NUMBER(S): [id number] ORDERING CLINICIAN: NEFTALI GARLAND TECHNIQUE: Helical data [...] Morales MD. This study was interpreted at [place], [place]. Signed by: Lul Villegas 01/01/2024 9:17 PM Dictation workstation: [id number] us Generic External Data Provider IMG CT PROCEDURES Final Result documented in this encounter Visit Diagnoses Not on filedocumented in this encounter Care Teams Recruitment And Outreach Assistant Relationship Specialty Start Date End Date Shaikh Ayala MD PCP - General Internal Medicine 07/15/23 04/11/24 Renea Barajas DO [address] [facility] [address] [place] [address] PCP - ACO Reach 08/14/23 07/21/24 Gerald Low MD [address] [facility] 200 [place] [address] PCP - General Family Medicine 04/13/24 Renea Barajas DO [address] [facility] [address] [place] [address] PCP - ACO Reach 07/29/24 09/15/24 Peggy Gatica NP [address] [facility] 200 [place] [address] Nurse Practitioner Family Medicine 04/12/24 documented as of this encounter
--- OUTSIDE RECORDS SUMMARY | 2025-03-20 02:37 | XMS_ITS | Encounter Summary ---
Author Organization [facility] Address [address] [place] [address] Care Team Providers Care Folder Operator Name Role Phone Shaikh MARY Ayala Primary Care Provider [phone] Renea Barajas DO Unavailable [phone] Peggy Gatica HOT STAMP OPERATOR Unavailable [phone] Gerald Low MD Primary Care Provider [phone] Renea Barajas DO Unavailable [phone] Encounter Details Date Type Department Care Team (Late st Contact Info) Description 07/17/2023 Clinisync Result Encounter [facility] External Department Unsolicited Shaikh Ayala MD [address] [place] [address] Social History Tobacco Use Types Packs/Day Years [...] week 02/18/2023 How often do you attend anabaptism or buddhist serv ices? Patient declined 02/18/2023 Do you belong to any clubs o r organizations such as anabaptism groups, unions, fraternal or athletic groups, or [...] Recorded Patient Health Questionnaire-2 Score 0 07/15/2023 [facility] of Occupat ional Health - Occupational Stress [...] Visit [facility] [address] [place] [address] Fahad Sears PA [address] [place] [address] documented as of this encounter Procedures Procedure Name Priority Date/Time Associated Diagnosis Comments US RENAL BI 07/17/2023 10:21 AM EST documented in this encounter Results * US RENAL BI (07/17/2023 10:21 AM EST) Anatomical Region Laterality Modality Other 07/17/2023 10:2 1 AM EST Narrative 07/17/2023 10:23 [place] [address] Ultrasound Report Signed Patient: BRENT CAR MR#: [id number] : 1950 Acct:[id number] Age/Sex: 73 / M ADM Date: 07/17/23 Loc: US Attending Dr: Shaikh Jamie Cartaegna Ordering Physician: Shaikh Mitzi Ayala Date of Service: 07/17/23 Procedure(s): US renal BI Accession Number(s): [id number] cc: VANESSA FERRIS ; Shaikh Mitzi Ayala [place] [id number] Patient Name: BRENT CAR MRN: [id number] date: 1950 Sex: M Assigned Patient Location: US Current Patient Location: US Accession/Order Number: [id number] Exam Date: 07/17/2023 09:40 Report Date: 07/17/2023 [...] Signed By: 07/17/23 1023 DD/ 1021 TD/TT: Territory Sales Representative: Procedure Note Radiology, Radiologist, - 07/17/2023 [place] [address] Ultrasound Report Signed Patient: BRENT CAR FMR#: [id number] : 1950cct:[id number] Age/Sex: 73 / MADM Date: 07/17/23 Loc: US Attending Dr: Shaikh Jamie Cartagena Ordering Physician: Shaikh Mitzi Ayala Date of Service: 07/17/23 Procedure(s): US renal BI Accession Number(s): [id number] cc: VANESSA FERRIS ; Shaikh Mitzi Ayala [address] [place] [id number] Patient Name: BRENT CAR MRN: [id number] date: 1950 Sex: M Assigned Patient Location: US Current Patient Location: US Accession/Order Number: [id number] Exam Date: 07/17/2023 09:40 Report Date: 07/17/2023 [...] M.D. Signed By:07/17/23 1023 DD/ 1021 TD/TT: Territory Sales Representative: us Shaikh Jamie [facility] Final Result documented in this encounter Visit Diagnoses Not on filedocumented in this encounter Care Teams Folder Operator Relationship Specialty Start Date End Date Shaikh Ayala MD PCP - General Internal Medicine 07/15/23 04/11/24 Renea Barajas DO [address] [facility] [address] [address] [place] [address] PCP - ACO Reach 08/14/23 07/21/24 Gerald Low MD [address] [facility] [address] [place] [address] PCP - General Family Medicine 04/13/24 Renea Barajas DO [address] [address] PCP - ACO Reach 07/29/24 09/15/24 Peggy Gatica NP 1715 [facility] 200 [place] [address] Nurse Practitioner Family Medicine 04/12/24 documented as of this encounter
--- OUTSIDE RECORDS SUMMARY | 2025-03-20 02:37 | XMS_ITS | Encounter Summary ---
Author Organization [facility] Address [address] [place] [address] Care Team Providers Care Religious Healer Name Role Phone Shaikh MARY Ayala Primary Care Provider [phone] Renea Barajas DO Unavailable [phone] Peggy Gatica RECONCILIATION COORDINATOR Unavailable [phone] Gerald Low MD Primary Care Provider [phone] Renea Barajas DO Unavailable [phone] Encounter Details Date Type Department Care Team (Late st Contact Info) Description 10/08/2023 Orders Only [facility] [address] [place] [address] Nino Martell MD [address] [facility] Social History Tobacco Use Types Packs/Day [...] week 02/18/2023 How often do you attend confucianist or bahai serv ices? Patient declined 02/18/2023 Do you belong to any clubs o r organizations such as confucianist groups, unions, fraternal or athletic groups, or [...] Recorded Patient Health Questionnaire-2 Score 0 10/12/2023 [facility]ational Stress Questionnaire [...] in a alf (including now)? No 02/18/2023 Sex and Gender [...] Visit [facility] [address] [place] [address] Fahad Sears PA [address] [place] [address] documented as of this encounter [...] on filedocumented in this encounter Care Teams Religious Healer Relationship Specialty Start Date End Date Shaikh Ayala MD PCP - General Internal Medicine 07/15/23 04/11/24 Renea Barajas DO [address] [facility] [address] [place] [address] PCP - ACO Reach 08/14/23 07/21/24 Gerald Low MD [address] [facility] [address] [place] [address] PCP - General Family Medicine 04/13/24 Renea Barajas DO [address] [facility] [address] [place] [address] PCP - ACO Reach 07/29/24 09/15/24 Peggy Gatica NP [address] [facility] [address] [place] [address] Nurse Practitioner Family Medicine 04/12/24 documented as of this encounter
--- OUTSIDE RECORDS SUMMARY | 2025-03-20 02:37 | XMS_ITS | Encounter Summary ---
Author Organization [facility] Address [address] [place] [address] Care Team Providers Care Group Chief Operator Name Role Phone Shaikh MARY Ayala Primary Care Provider [phone] Renea Barajas DO Unavailable [phone] Peggy Gatica SURGICAL SUPERVISOR Unavailable Gerald Low MD Primary Care Provider [phone] Renea Barajas DO Unavailable [phone] Encounter Details Date Type Department Care Team (Late st Contact Info) Description 08/13/2023 Orders Only [facility] [address] [place] [address] Shaikh Ayala MD [address] [place] [address] Social History Tobacco Use Types Packs/Day Years [...] week 02/18/2023 How often do you attend yarsanism or faith serv ices? Patient declined 02/18/2023 Do you belong to any clubs o r organizations such as yarsanism groups, unions, fraternal or athletic groups, or [...] Recorded Patient Health Questionnaire-2 Score 0 08/11/2023 [facility] of Occupat ional Health - Occupational Stress [...] a nursing home (including now)? No 02/18/2023 Sex and Gender Information Value Date Recorded Sex Assigned at Not on file Legal Sex Male 7:35 PM EDT Gender Identity Male 08/27/2022 7:35 PM EDT Sexual Orientation Not on file documented as of this encounter Plan of Treatment Upcoming Encounters Date Type Department Care Team (Late st Contact Info) Description 03/29/2025 9:30 AM EDT Office Visit [facility] [address] [place] [address] Fahad Sears PA [address] [place] [address] documented as of this encounter [...] on filedocumented in this encounter Care Teams Group Chief Operator Relationship Specialty Start Date End Date Shaikh Ayala MD PCP - General Internal Medicine 07/15/23 04/11/24 Renea Barajas DO [address] [facility] [address] [place] [address] PCP - ACO Reach 08/14/23 07/21/24 Gerald Low MD [address] [facility] [address] [place] [address] PCP - General Family Medicine 04/13/24 Renea Barajas DO [address] [facility] [address] [place] [address] PCP - ACO Reach 07/29/24 09/15/24 Peggy Gatica NP [address] [facility] [address] [place] [address] Nurse Practitioner Family Medicine 04/12/24 documented as of this encounter
--- OUTSIDE RECORDS SUMMARY | 2025-03-20 02:37 | XMS_ITS | Clinical Summary ---
Author Organization [facility] Address [address] [place] [address] Care Team Providers Care Prepleater Name Role Phone Peggy Gatica NP Unavailable [phone] Gerald Low MD Primary Care Provider [phone] Allergies Active Allergy Reactions Criticality Noted Date [...] mg) by mouth Daily 90 tablet 1 4 Active losartan (Cozaar) 100 MG tabletIndications: Primary hypertension Take 1 tablet (100 mg) by mouth Daily 90 tablet 1 4 Active rosuvastatin (Crestor) 20 MG tabletIndications: Mixed hyperlipidemia Take 1 tablet (20 mg) by mouth Daily 4 025 Active omeprazole (PriLOSEC) [address] capsuleIndications :Gastroesophageal reflux disease without esophagitis TAKE 1 CAPSULE IN THE MORNING BEFORE A MEAL (DO NOT CRUSH OR CHEW) 90 capsule 3 5 Active empagliflozin (Jardiance) 25 MGIndications:Stag e 3a chronic kidney disease (CMS-HCC),Type 2 diabetes mellitus with stage 3a chronic kidney disease, without long-term current use of insulin (HCC) Take 1 tablet (25 mg) by mouth Daily 90 tablet 1 5 Active glimepiride (Amaryl) 4 MG tabletIndications: Type 2 diabetes mellitus with stage 3a chronic kidney disease, without long-term current use of insulin (HCC) Take 1 tablet (4 mg) by mouth in the morning. Take before meals. 90 tablet 1 5 Active allopurinol (Zyloprim) 300 MG tabletIndications: Gout, unspecified cause, unspecified chronicity, unspecified site Take 1 tablet (300 mg) by mouth Daily 90 tablet 1 5 Active bisoprolol (Zebeta) 5 MG tablet Take 5 mg by mouth Daily 5 Active Active Problems Problem Noted Date Diagnosed Date Encounter for subsequent [facility] wellness visit (AWV) in Medicare patient [...] at last office visit, was sent to [facility] ER via squad Bisoprolol dose was lowered from 10mg daily to 5mg daily Assessment & Plan (12/13/2024 3:10 PM EDT): No current sxs , at HR that he has, we discussed that despite asymptomatic we will send to hospital 911 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 Patient scheduled for [facility] on 07/29/23 No prior hx [...] Last Assessment & Plan: Recently admitted to [facility] for near syncope, bradycardia, abnormal stress [...] (07/15/2023 2:41 PM EST): Scheduled for [facility] in July. Patient is currently asymptomatic. Instructed [...] Assessment & Plan (04/12/2024 10:55 AM EDT): 2004- states ortho told him he needed [...] had to switch since she moved to [facility] [place]. Accelerated hypertension 02/24/2023 Morbid obesity 11/24/2022 10/10/2024 Type 2 diabetes mellitus in patient with obesity 06/24/2021 10/10/2024 Encounters Date Type Department Care Team Description 01/09/2025 8:40 AM EDT Office Visit [facility] [address] [place] [address] Tomeka Rosado NP Encounter for subsequent annual wellness visit (AWV) in Medicare patient (Primary Dx); NSVT (nonsustained ventricular tachycardia) (HCC); Bradycardia; Stage 3a chronic kidney disease (CMS-HCC); Type 2 diabetes mellitus with stage 3a chronic kidney disease, without long-term current use of insulin (HCC); Class 1 obesity due to excess calories with serious comorbidity in adult, unspecified BMI; 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HCC); Left adrenal mass (HCC); Mixed hyperlipidemia ; Primary hypertension ; Left ankle swelling 01/09/2025 Results Follow-Up [facility] [address] [place] [address] Ruby Miller MA XR ANKLE LT MIN 3V 01/09/2025 Clinisync Result Encounter [facility] External Department Unsolicited Tomeka Rosado NP 01/09/2025 Bamboo flowsheet [facility] [address] [place] [address] Tomeka Rosado NP 01/06/2025 Travel 12/19/2024 Orders Only [facility] [address] [place] [address] Jai Subramanian MD 12/19/2024 [facility] [address] [place] [address] Tomeka Rosado NP from Last 3 Months Immunizations Immunization Administration Dates Next Due Influenza, High Dose Seasona l, Preservative Free 03/09/2019,04/09/2018,05/18/2017 Influenza, High-dose Seasona l, Quadrivalent, Preservative Free 03/20/2023,03/27/2022,03/01/2021,02/23 Influenza, seasonal, injecta ble, preservative free 03/13/2016,03/28/2015 Influenza, trivalent, adjuvanted 04/05/2024 Novel [id number], preservative-free 08/06/2009 Pneumococcal Conjugate PCV 13 11/22/2018, 018 Pneumococcal Polysaccharide PPSV23 02/24/2023, RSV, recombinant, protein lopez bunit RSVpreF, adjuvant reconstitu, 120mcg/0.5mL, PF (Arexvy) 05/24/2024 TD (adult), 2 Lf tetanus tox oid, preservative free, adsorbed 10/27/2018 Tdap 10/27/2018,03/14/2011 Zoster, live 05/24/2016,05/15/2016 Family History Medical History Relation Name Comments Cancer Brother Carrington Meniere's disease Brother Carrington multinodular goiter Brother Carrington Diabetes Father Carrington Hearing loss Father Carrington Heart disease Father Carrington Hypertension Father Carrington Heart disease Mother Yasmin Heart failure Mother Yasmin Breast cancer Sister Diabetes Son Artem Relation Name Status Comments Brother Carrington x2 Father Carrington Mother Yasmin Sister Son Artem Alive x2 Social History Tobacco Use Types Packs/Day Years Used Date Smoking Tobacco: Former Cigarettes 1 9 - 1983 Passive Smoke Exposure: [...] How often do you attend [facility] or catholic services? Patient declined 07/06/2024 Do [...] Recorded Patient Health Questionnaire-2 Score 0 01/09/2025 [facility]at ional Health - [...] any time in the past 12 m [facility], were you homeless or living in [...] Description 03/29/2025 9:30 AM EDT [facility] [address] [place] [address] Fahad Sears PA [address] [place] [address] Health Maintenance Due Date Last Done Comments CT Colonography 1950 FIT-DNA 1950 FIT 1950 FOBT 1950 Sigmoidoscopy 1950 Influenza Vaccine (#1) 2025 , 03/20/2023, 03/27/2022, Additional history exists Colonoscopy 11/28/2030 11/28/2020, 11/13, 07/14/2014 Colorectal Cancer Screening 11/28/2030 Pneumococcal Vaccine: 65+ Years Completed 02/24/2023, 11/22/2018, 05/21/2018, Additional history exists Procedures Procedure Name Priority Date/Time Associated Diagnosis Comments XR ANKLE LT MIN 3V 01/09/2025 10 :56 AM EDT ECG 12-LEAD Routine 12/19/2024 10:34 AM EDT COLONOSCOPY Routine 11/28/2020 12:00 PM EDT from Last 3 Months or Most Recently Relevant to Health Maintenance Results * XR ANKLE LT MIN 3V (01/09/2025 10:56 AM EDT) Anatomical Region Laterality Modality Other 01/09/2025 10:5 6 AM EDT Narrative 01/09/2025 10:59 AM EDT The [address] [address] XRay Report Signed Patient: BRENT CAR MR#: [id number] : 1950 Acct:[id number] Age/Sex: 74 / M ADM Date: 01/09/25 Loc: RAD Attending Dr: Tomeka Rosado NP Ordering Physician: Tomeka Rosado NP Date of Service: 01/09/25 Procedure(s): XR ankle LT min 3V Accession Number(s): [id number] cc: Tomeka Rosado NP The [place] [id number] Patient Name: BRENT CAR MRN: [id number] date: 1950 Sex: M Assigned Patient Location: [facility] Current Patient Location: [facility] Accession/Order Number: [id number] Exam Date: 01/09/2025 10:50 Report Date: 01/09/2025 10:56 At the request of: TOMEKA ROSADO NP Procedure: XR ankle LT min 3V LEFT ANKLE - 3 views CLINICAL DATA: Chronic left ankle pain and swelling laterally. No specific injury. COMPARISON: 08/23/2024 AP, lateral and oblique views were obtained. There is osteopenia. There is no acute fracture or dislocation. Similar minor asymmetry is seen at the medial ankle mortise. Spurring is present at the malleoli and dorsum of the talus. There are also calcaneal spurs, larger at the plantar surface. The talar dome is intact. Lateral soft tissue swelling is seen. XR/XR ankle LT min 3V IMPRESSION: NO ACUTE BONY FINDINGS. Impression dictated by: Kisha Dudley M.D. 01/09/2025 10:56 AM Dictation Location: [place] [address] Electronically authenticated by: [id number] Y Date: 01/09/2025 10:56 Dictated By: Kisha Dudley M.D. Signed By: 01/09/25 1059 DD/ 1056 TD/TT: Aviation Project Engineer: Procedure Note Radiology, Radiologist, MD - 01/09/[address] [address] XRay Report Signed Patient: BRENT CAR FMR#: [id number] : 1950cct:[id number] Age/Sex: 74 / MADM Date: 01/09/25 Loc: RAD Attending Dr: Tomeka Rosado NP Ordering Physician: Tomeka Rosado NP Date of Service: 01/09/25 Procedure(s): XR ankle LT min 3V Accession Number(s): [id number] cc: Tomeka Rosado NP [place] [address] Patient Name: BRENT CAR MRN: [id number] date: 1950 Sex: M Assigned Patient Location: [facility] Current Patient Location: [facility] Accession/Order Number: [id number] Exam Date: 01/09/2025 10:50 Report Date: 01/09/2025 10:56 At the request of: TOMEKA ROSADO NP Procedure: XR ankle LT min 3V LEFT ANKLE - 3 views CLINICAL DATA: Chronic left ankle pain and swelling laterally. Nospecific injury. COMPARISON: 08/23/2024 AP, lateral and oblique views were obtained. There is osteopenia.There is no acute fracture or dislocation. Similar minor asymmetry is seen at the medial ankle mortise. Spurring is present at the malleoli and dorsum ofthe talus. There are also calcaneal spurs, larger at the plantar surface.The talar dome is intact. Lateral soft tissue swelling is seen. XR/XR ankle LT min 3V IMPRESSION: NO ACUTE BONY FINDINGS. Impression dictated by: Kisha Dudley M.D. 01/09/2025 10:56 AM Dictation Location: [place] [address] Electronically authenticated by: [id number] Y Date: 0:56 Dictated By: Kisha Dudley M.D. Signed By:01/09/25 1059 DD/ 1056 TD/TT: Aviation Project Engineer: us Tomeka Rosado NP [facility] Final Result * ECG 12 lead (12/19/2024 10:34 AM EDT) us Jai Subramanian MD ECG ORDERABLES Final Result * Colonoscopy (11/28/2020 12:00 PM EDT) Anatomical Region Laterality Modality Endoscopy 11/28/2020 12:0 0 PM EDT Narrative 11/28/2020 12:00 PM EDT PERFORMED AT [facility] LOCATION:[id number] See Scanned Results Procedure Note CONVERSION, GENERIC - 10/29/2022 PERFORMED AT [facility] LOCATION:[id number] See Scanned Results Renea Barajas DO ENDOSCOPY PROCEDURE ORDERABLES Final Result from Last 3 Months or Most Recently Relevant to Health Maintenance Insurance MEDICARE [facility] Advance Directives Healthcare Agents on File Name Relationship Healthcare Agent Relationshi p Communication Zoe Josep Spouse Health Care Agent [email or web address] Care Teams Prepleater Relationship Specialty Start Date End Date Gerald Low MD PCP - General Family Medicine 04/13/24 Peggy Gatica NP Nurse Practitioner Family Medicine 04/12/24
--- OUTSIDE RECORDS SUMMARY | 2025-03-20 02:37 | XMS_ITS | Encounter Summary ---
Author Organization [facility] Address [address] [place] [address] Care Team Providers Care International Student Counselor Name Role Phone Renea Barajas DO Primary Care Provider [phone] Shaikh MARY Ayala Primary Care Provider [phone] Renea Barajas DO Unavailable [phone] Peggy Gatica SUGAR REFINER Unavailable [phone] Gerald Low MD Primary Care Provider [phone] Renea Barajas DO Unavailable [phone] Encounter Details Date Type Department Care Team (Late st Contact Info) Description 12/02/2022 Abstract [facility] Family Medicine [address] [place] [address] Renea Barajas DO [address] [address] Social History Tobacco Use Types [...] EDT Office Visit [facility] [place] [facility] [address] [place] [address] Fahad Sears PA [address] [place] [address] documented as of this encounter Visit Diagnoses Not on filedocumented in this encounter Care Teams International Student Counselor Relationship Specialty Start Date End Date Renea Barajas DO PCP - General Family Medicine 11/24/22 07/14/23 Shaikh Ayala MD PCP - General Internal Medicine 07/15/23 04/11/24 Renea Barajas DO 17[address] [facility] [address] [place] [address] PCP - ACO Reach 08/14/23 07/21/24 Gerald Low MD [address] [facility] [address] [place] [address] PCP - General Family Medicine 04/13/24 Renea Barajas DO [address] [facility] [address] [facility] [place] [place] [address] PCP - ACO Reach 07/29/24 09/15/24 Peggy Gatica NP [address] [address] Nurse Practitioner Family Medicine 04/12/24 documented as of this encounter
--- OUTSIDE RECORDS SUMMARY | 2025-03-20 02:37 | XMS_ITS | Encounter Summary ---
Author Organization [facility] Address [address] [place] [address] Care Team Providers Care Television Host Name Role Phone Shaikh MARY Ayala Primary Care Provider [phone] Renea Barajas DO Unavailable [phone] Peggy Gatica INSIDE PARTS SALES Unavailable Gerald Low MD Primary Care Provider [phone] Renea Barajas DO Unavailable [phone] Reason for Visit * Reason Comments Med Refill Encounter Details Date Type Department Care Team (Late st Contact Info) Description 09/25/2023 [facility] Family Medicine [address] [facility] [place] [address] Renea Barajas, DO [address] [facility] [address] [place] [address] Social History Tobacco Use Types [...] week 02/18/2023 How often do you attend yazidi or rastafarian serv ices? Patient declined 02/18/2023 Do you belong to any clubs o r organizations such as yazidi groups, unions, fraternal or athletic groups, or [...] Recorded Patient Health Questionnaire-2 Score 0 08/11/2023 [facility] [place] of Occupat ional Health - Occupational Stress [...] Visit [facility] [address] [place] [address] Fahad Sears PA [address] [place] [address] documented as of this encounter Visit Diagnoses Not on filedocumented in this encounter Care Teams Television Host Relationship Specialty Start Date End Date Shaikh Ayala MD PCP - General Internal Medicine 07/15/23 04/11/24 Renea Barajas DO [address] [facility] [address] [place] [address] PCP - ACO Reach 08/14/23 07/21/24 Gerald Low MD [address] [address] PCP - General Family Medicine 04/13/24 Renea Barajas DO [address] [address] PCP - ACO Reach 07/29/24 09/15/24 Peggy Gatica NP [address] [address] Nurse Practitioner Family Medicine 04/12/24 documented as of this encounter
--- OUTSIDE RECORDS SUMMARY | 2025-03-20 02:37 | XMS_ITS | Clinical Summary ---
Author Organization [facility] tem Address [id number] [address] [place] [address] Care Team Providers Care Community Center Coordinator Name Role Phone Renea Barajas DO Primary [...] 05/15/2016 Colonoscopy 11/28/2021 11/28/2020, 10/14/2010 COVID-19 Vaccine (2024-2 6 season) 2025 03/25/2021, 08/07/2020, 07/17/2020 Influenza Vaccine 02/13/2025 03/01/2021, [...] Recently Relevant to Health Maintenance Insurance MEDICARE [id number] Care Teams Community Center Coordinator Relationship Specialty Start Date End Date Renea Barajas DO PCP - General Family Medicine 11/21/20
--- OUTSIDE RECORDS SUMMARY | 2025-03-20 02:37 | XMS_ITS | Patient Health Record ---
Author Organization [facility] [place] Address [address] [place] [address] Care Team Providers Care Locomotive Engineer Diesel Name Role Phone Shaikh Ayala MD Primary Care Provider Unavaila ble Allergies Allergen (clinical drug ingredient) Drug/Non Drug Allergy documented on EMR Reaction Allergy Type Onset Date Status azithromycin Azithromycin Unknown Drug Allergy A ctive lisinopril Lisinopril cough Drug Allergy Activ e ciprofloxacin Ciprofloxacin Unknown Drug Allergy Active Reason For Referral No Information Medications Medication SIG (Take, Route, Frequency, Duration) Notes Start Date End Date Status Furosemide 20 MG Oral; Duration: 90 Days Active Fluticasone Propionate 50 MCG/ACT 1 spray in each nostril Nasally Once a day Active hydrALAZINE HCl 50 MG 1 tablet with food Orally BID; Duration: 90 days Active Glimepiride 4 MG Oral; Duration: 90 Days Active Losartan Potassium 100 MG Oral; Duration: 90 Days Active Jardiance 25 MG Oral; Duration: 90 Days Active Rosuvastatin Calcium 20 MG Oral; Duration: 90 Days Active Pantoprazole Sodium 40 MG Oral; Duration: 30 Days Active Aspirin Low Dose 81 MG CHEW 1 TABLET (81 MG) IN THE MORNING Oral; Duration: 90 Days Active Tamsulosin HCl 0.4 MG Oral; Duration: 90 Days Active Allopurinol 300 MG Oral; Duration: 90 Days Active Sucralfate 1 GM Oral; Duration: 90 Days Active Bisoprolol Fumarate 5 MG Oral; Duration: 90 Days Active Immunizations Vaccine Route Administration Date Status Comme [facility] Shoozy Syringe Pre -Filled 30 mcg/0.3 mL Unknown 04/28/2023 Administered Flu, Fluzone High-Dose (2022 -2023) (19594) 65 yrs+ Unknown 03/20/2023 Administered Pneumococcal (Pneumovax [...] Problem Status W/U Status Risk Notes Problem Obesity (821154453) Obesity, unspecified (E66.9) Active confirmed Problem Hypersomnia (81113350) Hypersomnia (G47.10) Active confirmed Problem Ex-tobacco user (finding) (586082990) History of tobacco abuse (Z87.891) Active confirmed Plan Of Treatment No Information Insurance Providers Payer Name Payer Address Payer Phone Subscriber Number Group Number Insured Name Patient Relationship to Insured Coverage Start Date Coverage End Date MEDICARE [place] [address] [place] [place] [address] [id number] Brent Car Self - patient is the insured 7 [employer] SUPPLEMENT INSURANCE [address] [place] [address] [phone] [id number] Brent Car Self - patient is the insured Medical (General) History Medical History History ICD Code History of tobacco abuse Z87.891 Surgical History Surgery Date(Month/Year) Cardiac Catheterization 07/27/2023 cholecystectomy EGD appendectomy rotator cuff tear repair-left bunionectomy-left foot tonsillectomy and adenoidectomy Hospitalization History Reason Date(Month/Year) Bradycardia-[facility] 07/09/2023
--- OUTSIDE RECORDS SUMMARY | 2025-03-20 02:38 | XMS_ITS | Clinical Summary ---
Author Organization [facility] Address [address] [place] [address] Care Team Providers Care Printing Estimator Name Role Phone Tomeka Rosado MD Primary Care Provider [phone] Allergies Active Allergy Reactions Criticality Noted Date [...] 10 mg tabletIndications: Coronary artery disease involving [place] coronary artery of [place] heart without angina pectoris Take 2 tablets [...] of 19 k on labs drawn at [facility] - recheck Pneumonia of left lower [...] that he may benefit from seeing a automatic buffing wheel former for DM, adrenal mass Abnormal nuclear stress test 07/15/202310/2023 Overview (08/18/2023): Last Assessment & Plan: Nuclear stress test 07/08 - perfusion defect in LAD distribution. Asymptomatic. Instructed to start using ASA. Patient scheduled for [facility] on 07/29/23 No prior hx of CAD Encounter to establish care with new doctor 06/1708/18/2023 Overview (08/18/2023): Last Assessment & Plan: New Patient, here to establish care. Reviewed medical, surgical and social hx. Reviewed available old records. Reviewed and updated medication list. New Patient for this practice. Was previously established with Dr Barajas but had to switch since she moved to [facility]. Near syncope 07/10/2023 Assessment & Plan (08/18/2023 11:07 AM EST): Currently stable, no further episode noted Assessment & Plan (07/10/2023 5:18 PM EST): Recently admitted to [facility] for near syncope, bradycardia, abnormal stress [...] Type Department Care Team Description 12/19/2024 Telephone [place] [address] [place] [address] Darlin Fish MA from Last 3 Months Family History Medical History Relation Name Comments Cancer Brother 1 [place] Diabetes type II Brother 1 [place]rington Hypertension Brother 1 [place] Cancer Brother 2 Artem Diabetes type II Brother 2 Artem Cancer Father Demetri Josep Diabetes type II Father Demetri Josep Hypertension Father Demetri Josep Angina Mother Yasmin [...] 2000 05/24/2016, 1206/2015 Fall Risk Screening 2014 Diabetes: Hemoglobin A1C 04/14/2024 01/13/2024 COVID-19 Vaccine ( season) 2025 04/28/2023, 10/15/2021, 03/25/2021, Additional history exists Influenza Vaccine (#1) 2025 , 03/20/2023, 03/27/2022, [...] Payer (Ef fective 2016-Present) Name:[employer] Member ID:[id number] Relation to Subscriber:Self Name:Brent Car Subscriber ID:[id number] Payer ID:[id number] Group ID:Not on file Type:Medicare Address: [facility] [place] [id number] [facility] Care Teams Printing Estimator Relationship Specialty Start Date End Date Tomeka Rosado MD [address] [place] [address] PCP - General Nurse Practitioner 11/22/24
--- OUTSIDE RECORDS SUMMARY | 2025-03-20 02:38 | XMS_ITS | CCD ---
Author Organization [facility] CliniSyil Care Team Providers Care Sampler First Name Role Phone PHYSICIAN, DEFAULT Admitting Unavailable PHYSICIAN, DEFAULT Attending Unavailable Vanesas Steele Unavailable [phone] Unavailable Unavailable CEDRIC, DR MENDEZ Primary [...] GEORGE Consulting Unavailable ROSIPKO, MIQUEL Consulting Unavailable Benson, Dr. Neftali Cormier [...] Renea G Primary Care Provider Jamie HERNANDEZ, [facility] Primary Care Provider Unavailable Primary Care Provider UnavailMaribeth Celeste Attending Unavailable STEPAN, RENEA Referring Unavailable Neftali Knowles MD Unavailable Jamie HERNANDEZ, [facility] Primary Care Provider Jamie HERNANDEZ, [facility] Primary Care Provider Stepan DO, Renea G Unavailable En MAINTAINABILITY ENGINEER, Miriam Unavailable [facility] [phone] Jamie HERNANDEZ, [facility] Primary Care Provider [facility] Care Unavailable NEFTALI KNOWLES Attending Unavailable [facility] Care Unavailable DINARY, FAZEL Attending Unavailable CHOWDHRY, VIC Referring Unavailable [facility] Primary Care Unavailable DINARY, FAZEL Attending Unavailable DINARY, FAZEL Referring Unavailable [facility] Primary Care Unavailable NEFTALI KNOWLES Referring Unavailable [facility] Care Unavailable DINARY, FAZEL Attending Unavailable DINARY, FAZEL Referring Unavailable [facility] Primary Care Unavailable Gatica MAINTAINABILITY ENGINEER, Miriam Unavailable [phone] Stepan DO, Renea G Unavailable NOE KNIGHT Attending Unavailable NOE KNIGHT Attending Unavailable Tomeka Rosado Attending Unavailable Tomeka Rosado Admitting Unavailable Jamie HERNANDEZ, [facility] Primary Care Provider GRACE JUSTICE Referring Unavailable JAMIE, ALEXANDER Primary Care Unavailable GRACE JUSTICE Attending Unavailable GRACE JUSTICE Referring Unavailable JAMIE, ALEXANDER Primary Care Unavailable MIRIAM GATICA Attending UnavailJENNIFFER Mcclain Attending Unavailable ALONZO, TOMEKA Attending Unavailable ALONZO, TOMEKA Attending Unavailable JENNIFFER SEARS Attending Unavailable AICHHOLAlan, TOMEKA Attending Unavailable AICHHOLAlan, TOMEKA Attending Unavailable JAMIE, ALEXANDER Attending Unavailable MIRIAM GATICA Attending UnavailJENNIFFER Mcclain Attending Unavailable MIRIAM GATICA Referring UnavailJENNIFFER Mcclain Referring Unavailable Alonzo ROSACTomeka Attending Provider Tomeka Mcgregor Primary Care Provider Allergies Allergy Classification Reported Allergen(s) Allergy Type Date of Onset Reaction(s) Facility Angiotensin Converting Enzyme (GODWIN) Inhibitors (4 sources) Lisinopril; Translations: [Lisinopril TABS] Drug Allergy 2 Cough [id number] Work Phone: Macrolides (antibiotic) (1 source) Erythromycin Drug Allergy 3 Other (See Comments) [facility] Work Phone: Quinolones (antibiotic) (4 sources) Ciprofloxacin; Translations: [ciprofloxacin] Drug Allergy 3 Other (See Comments) [facility] (20 sources) Ciprofloxacin; Translations: [ciprofloxacin] Drug Allergy 3 Unknown, Other, Other (See Comments) [facility] (20 sources) Lisinopril; Translations: [Lisinopril TABS] Drug Allergy 2 Unknown, [facility] Work Phone: (5 sources) Amino Acids; Translations: [LISINOPRIL] Drug Allergy 1 Cough [facility] (1 source) Ciprofloxacin Drug Allergy [facility] (1 source) Erythromycin Drug Allergy [facility] (20 sources) Erythromycin; Translations: [ERYTHROMYCIN] Drug Allergy 3 Unknown, GI bleeding, Other (See Comments), GI intolerance, Other [facility] Work Phone: (20 sources) Azithromycin; Translations: [AZITHROMYCIN] Drug Allergy 8 Unknown [facility] (20 sources) Lisinopril Allergy to substance 3 Cough [facility] Medications Current Medications Medication Drug Class(es) Dates Sig (Normalized) Sig (Original) allopurinol 300 mg oral tablet (20 sources) Xanthine Oxidase Inhibitor Start: 03-10-2025 take 1 tablet by mouth once daily Allopurinol 300 mg tablet Active 300 MG PO Daily March 10, 2025 12:00am Complies with drug therapy Start: 09-17-2020 End: 02-01-2025 take 1 tablet by mouth once daily allopurinol (Zyloprim) 300 MG tablet Indications: Gout, unspecified cause, unspecified chronicity, unspecified site Take 1 tablet (300 mg) by mouth Daily 90 tablet 1 11/03/2024 02/01/2025 Active Allopurinol 300 MG Oral Tablet Quantity: 0 Refills: 0 Ordered: 08-Jan-2021 DO Active amLODIPine 10 mg oral tablet (20 sources) Dihydropyridine Calcium Channel Janet Start: 09-17-2020 End: 10-07-2023 take 1 tablet by mouth once daily amLODIPine (NORVASC) 10 MG tablet Take 1 tablet by mouth daily 0 09/17/2020 Active End: 01-09-2025 take 5 mg by mouth every twenty-four hours as needed amLODIPine (Norvasc) 10 MG tablet Take 5 mg by mouth Daily as needed 01/09/2025 Discontinued (Therapy completed) amLODIPine Besyl ate 10 MG Oral Tablet Quantity: 0 Refills: 0 Ordered: 08-Jan-2021 DO Active amoxicillin 875 mg / clavulanate 125 mg oral tablet (19 sources) Penicillin-class Antibacterial Start: 11-28-2024 End: 12-08-2024 take 1 tablet by mouth in the morning amoxicillin-clavulanate (Augmentin) 875-125 MG tablet Indications: Diverticulitis Take 1 tablet (875 mg) by mouth in the morning and 1 tablet (875 mg) before bedtime. Do all this for 10 days. 20 tablet 11/28/2024 12/08/2024 Active Start: 01-23-2021 take 1 tablet by victor manuel th every twelve hours Amoxicillin-Pot Clavulanate 875-125 MG Oral Tablet TAKE 1 TABLET EVERY 12 HOURS UNTIL GONE. Quantity: 10 Refills: 0 Ordered: 23-Jan-2021 Irwin Batista MD Start : 23-Jan-2021 Active aspirin 81 mg chewable tablet (13 sources) Platelet Aggregation Inhibitor, Nonsteroidal Anti-inflammatory Drug Start: 07-27-2023 End: 07-26-2024 take 1 tablet by mouth once daily aspirin 81 MG chewable tablet Take 1 tablet by mouth daily 07/27/2023 Active take 1 tablet by mouth once aspi rin 81 mg EC tablet Take 1 tablet (81 mg) by mouth once daily. Per patient only takes it when he feels his blood pressure is elevated. Has no guidelines for B/P. Patient states only based on how he feels Active bisoprolol fumarate 5 mg oral tablet (20 sources) beta-Adrenergic Janet Start: 03-10-2025 take 1 tablet by mouth once daily Bisoprolol Fumarate 5 mg tablet Active 5 MG PO Daily March 10, 2025 12:00am Complies with drug therapy Start: 01-03-2025 take 1 tablet by victor manuel th once daily bisoprolol (Zebeta) 5 MG tablet Take 5 mg by mouth Daily 01/03/2025 Active Start: 04-02-2024 End: 04-12-2024 bisoprolol (Zebeta) 5 MG tab let 04/02/2024 04/12/2024 Discontinued (Duplicate order) Start: 07-10-2023 End: 01-09-2025 bisoprolol (Zebeta) 10 MG ta blet Indications: Primary hypertension TAKE 1 TABLET IN THE MORNING 90 tablet 3 10/14/2023 01/09/2025 Discontinued (Therapy completed) take 1 tablet by victor manuel th [...] Indications: Stage 3a chronic kidney disease (HCC) ([facility]/HCC) Take 1 tablet (10 mg) by mouth in the morning. 90 tablet 0 07/20/2023 07/30/2023 Discontinued (Cost of medication) empagliflozin 25 mg oral tablet (20 sources) Sodium-Glucose Cotransporter 2 Inhibitor Start: 02-22-2025 take 1 tablet by mouth once daily Empagliflozin (Jardiance) 25 mg tablet Active 25 MG PO Daily 90 February 22, 2025 12:00am Complies with drug therapy Start: 07-30-2023 End: 02-19-2025 take 1 tablet by mouth once daily empagliflozin (Jardiance) 25 MG Indications: Stage 3a chronic kidney disease ([facility]-HCC) , Type 2 diabetes mellitus with stage 3a chronic kidney disease, without long-term current use of insulin ([facility]) Take 1 tablet (25 mg) by mouth Daily 90 tablet 1 08/23/2024 02/19/2025 Active fluticasone propionate 0.05 mg/actuat metered dose nasal spray (20 sources) Corticosteroid Start: 03-10-2025 take 1 spray(s) nasal route once daily Fluticasone Propionate (Flonase Allergy Relief) 50 mcg/actuation spray,suspension Active 2 SPRAY INTRANASAL Daily March 10, 2025 12:00am administer into each nostril Complies with drug therapy Start: 09-17-2020 fluticasone (F LONASE) 50 MCG/ACT nasal spray 2 sprays daily 09/17/2020 Active take 2 spray(s) nasa l route in the morning fluticasone (Flonase) 50 MCG/ACT nasal spray Administer 2 sprays into each nostril in the morning. Active fluticasone propionate ([employer] Digihaler) 55 mcg/actuation aero powdr breath act w/sensor (9 sources) fluticasone prop ionate ([employer] Digihaler) 55 mcg/actuation aero powdr breath act w/sensor Inhale 55 % once daily. Active fluticasone prop ionate ([employer] Digihaler) 55 mcg/actuation aero powdr breath act w/sensor Inhale 55 % once daily. 0 Active furosemide 20 mg oral tablet (20 sources) Loop Diuretic Start: 02-14-2025 End: 02-16-2025 take 1 tablet by mouth once daily Furosemide 20 mg tablet Active 20 MG PO Daily February 16, 2025 4:10pm Complies with drug therapy Start: 10-07-2020 End: 10-09-2024 take 1 tablet by mouth once daily furosemide (Lasix) 20 MG tablet Indications: Primary hypertension Take 1 tablet (20 mg) by mouth Daily 90 tablet 1 04/12/2024 Active Furosemide 20 MG Oral Tablet Quantity: 0 Refills: 0 Ordered: 08-Jan-2021 DO Active glimepiride 4 mg oral tablet (20 sources) Sulfonylurea Start: 03-10-2025 take 1 tablet by mouth once daily Glimepiride 4 mg tablet Active 4 MG PO Daily March 10, 2025 12:00am Complies with drug therapy Start: 10-07-2020 End: 01-09-2025 take 1 tablet by mouth before mealtime glimepiride (Amaryl) 4 MG tablet Indications: Type 2 diabetes mellitus with stage 3a chronic kidney disease, without long-term current use of insulin (HCC) Take 1 tablet (4 mg) by mouth in the morning. Take before meals. 90 tablet 1 10/11/2024 Active take 1 tablet by victor manuel th twice daily glimepiride (Amaryl) 4 mg tablet [...] (20 sources) Angiotensin 2 Receptor Janet Start: 02-14-2025 End: 02-16-2025 take 1 tablet by mouth once daily Losartan 100 mg tablet Active 100 MG PO Daily February 16, 2025 4:10pm Complies with drug therapy Start: 09-17-2020 End: 10-09-2024 take 1 tablet by mouth once daily losartan (Cozaar) 100 MG tablet Indications: Primary hypertension Take 1 tablet (100 mg) by mouth Daily 90 tablet 1 04/12/2024 Active Losartan Potassi um 100 MG Oral Tablet Quantity: 0 Refills: 0 Ordered: 08-Jan-2021 DO Active omeprazole 40 mg delayed release oral capsule (20 sources) Proton Pump Inhibitor Start: 03-10-2025 take 1 capsule by mouth once daily Omeprazole 40 mg capsule,delayed release(DR/EC) Active 40 MG PO Daily March 10, 2025 12:00am Complies with drug therapy Start: 01-23-2021 End: 07-11-2024 omeprazole (PriLOSEC) [address] capsule Indications: Gastroesophageal reflux disease without esophagitis TAKE 1 CAPSULE IN THE MORNING BEFORE A MEAL (DO NOT CRUSH OR CHEW) 90 capsule 3 07/11/2024 Active Start: 11-01-2020 take 1 capsule by mo uth once daily before breakfast omeprazole (PRILOSEC) 40 MG delayed release capsule Take 1 capsule by mouth every morning (before breakfast) 0 11/01/2020 Active Omeprazole 10 MG Oral Capsule Delayed Release Quantity: 0 Refills: 0 Ordered: 08-Jan-2021 DO Active pantoprazole 40 mg delayed release oral tablet (12 sources) Proton Pump Inhibitor Start: 10-07-2023 End: 05-13-2024 take 1 tablet by mouth twice daily pantoprazole (PROTONIX) 40 MG tablet Take 1 tablet by mouth 2 times daily 10/07/2023 Active pioglitazone 30 mg oral tablet (20 [...] take 1 tablet by mouth once daily Rosuvastatin 20 mg tablet Active 20 MG PO Daily March 10, 2025 12:00am Complies with drug therapy Start: 12-10-2022 End: 04-12-2024 take 1 tablet [...] 2 tablets by mouth daily 09/17/2020 Active Rosuvastatin Lawson cium 10 MG Oral Tablet Quantity: 0 Refills: 0 Ordered: 08-Jan-2021 DO Active sucralfate 1000 mg oral tablet (18 sources) Aluminum Complex Start: 10-07-2023 End: 06-30-2024 take 1 tablet by mouth four times daily sucralfate (CARAFATE) 1 GM tablet Take 1 tablet by mouth 4 times daily 10/07/2023 Active Start: 01-23-2021 take 1 tablet by victor manuel th four times daily at bedtime Sucralfate 1 GM Oral Tablet TAKE 1 TABLET 4 TIMES DAILY, BEFORE MEALS AND AT BEDTIME. Quantity: 360 Refills: 2 Ordered: 01-May-2021 Irwin Batista MD Start : 23-Jan-2021 Active tamsulosin hydrochloride 0.4 mg oral capsule (20 sources) alpha-Adrenergic Janet Start: 03-10-2025 Tamsu losin 0.4 mg capsule Active MG PO March 10, 2025 12:00am Complies with drug therapy Start: 07-31-2023 tamsulosin (FL OMAX) 0.4 MG capsule TAKE 1 CAPSULE DAILY 90 capsule 3 08/04/2024 Active tamsulosin HCl ( TAMSULOSIN ORAL) Take by mouth. Active Completed/Discontinued Medications Medication Drug Class(es) Dates Sig (Normalized) Sig (Original) 5 ml bupivacaine hydrochloride 5 mg/ml injection (10 sources) Amide Local Anesthetic Start: 11-30-2024 End: 11-30-2024 bupivacaine PF (Marcaine) 0.5 % injection 2 mL Start: 11-30-2024 End: 11-30-2024 2 mL, Injection, Once PRN Pr ocedure, Starting on Thu11/30/24 at 1018, For 1 dose Start: 08-12-2024 End: 08-12-2024 bupivacaine PF (Marcaine) 0. 5 % injection 1 mL Start: 08-12-2024 End: 08-12-2024 1 mL, Injection, Once PRN Pr ocedure, Starting on Thu08/12/24 at 0917, For 1 dose Start: 04-13-2024 End: 04-13-2024 bupivacaine PF (Marcaine) 0. 5 % injection 1 mL Start: 04-13-2024 End: [...] 08-Jan-2021 DO Active gadobenate dimeglumine (MULTIHANCE) injection 16 mL (1 source) Start: 12-13-2024 End: 12-13-2024 take 1 dose intravenously once 16 mL, IntraVENous, IMG ONCE PRN, 1 dose, Starting on Thu12/13/24 at 1326, Until Thu12/13/24 at 1015, Other gadobenate dimeglumine (MULTIHANCE) injection 16.1 mL (1 source) Start: 12-01-2023 End: 12-01-2023 gadobenate dimeglumine (MULTIHANCE) injection 16.1 mL iohexol (OMNIPaque) 350 mg iodine/mL solution 50 mL (1 source) Start: 12-31-2023 End: 12-31-2023 50 mL, intravenous, Once in imaging, Starting on Thu12/31/23 at 0738, For 1 dose iohexol (OMNIPaque) 350 mg iodine/mL solution 75 mL (2 sources) Start: 05-26-2023 End: 05-26-2023 iohexol (OMNIPaque) 350 mg iodine/mL solution 75 mL 1 ml methylPREDNISolone acetate 40 mg/ml injection (10 sources) Corticosteroid Start: 11-30-2024 End: 11-30-2024 methylPREDNISolone acetate (DEPO-Medrol) injection 40 mg Start: 11-30-2024 End: 11-30-2024 40 mg, Intra-articular, Once PRN Procedure, Starting on Thu11/30/24 at 1018, For 1 dose Start: 08-12-2024 End: 08-12-2024 methylPREDNISolone Acetate ( DEPO-Medrol) injection 40 mg Start: 08-12-2024 End: 08-12-2024 40 mg, Intra-articular, Once PRN Procedure, Starting on Thu08/12/24 at 0917, For 1 dose Start: 04-13-2024 End: 04-13-2024 methylPREDNISolone acetate ( DEPO-Medrol) injection 40 mg Start: 04-13-2024 End: 04-13-2024 40 mg, Intra-articular, Once PRN Procedure, Starting on Thu04/13/24 at 0947, For 1 dose simethicone 66.7 mg/ml oral suspension (4 sources) Start: 06-30-2024 End: 06-30-2024 As needed, Starting on Thu06/30/24 at 0954, Intraprocedure Start: 12-29-2023 End: 12-29-2023 As needed, Starting on Thu at 1330, Intraprocedure Start: 06-10-2023 End: 06-10-2023 simethicone (Mylicon) drops Problems Active Problems Problem Classification Problem Date Documented Da te Episodic/Chronic Abdominal pain (20 sources) Right upper quadrant pain; Translations: [Unspecified abdominal pain] Onset: 06-18-2020 Episodic Biliary tract disease (3 sources) Acute cholecystitis; Translations: [ACUTE CHOLECYSTITIS] Onset: 06-04-2021 Episodic Cancer of other GI organs; 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; 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] Onset: 04-29-2022 Chronic Cardiac dysrhythmias (20 sources) Nonsustained ventricular tachycardia ; Translations: [NSVT (nonsustained ventricular tachycardia)] Onset: 07-10-2023 07-15-2023 Chronic Cardiac dysrhythmias (11 sources) Bradycardia; Translations: [Bradycardia, unspecified] Onset: 12-13-2024 12-13-2024 Episodic Chronic kidney disease (20 sources) Chronic kidney disease stage 3A ; Translations: [Stage 3a chronic kidney disease (HCC)] Onset: 07-15-2023 07-15-2023 Chronic Deficiency and other anemia (20 sources) Anemia; Translations: [Anemia, unspecified] Onset: 02-24-2023 02-24-2023 Episodic Diabetes mellitus with complications (20 sources) Polyneuropathy due to type 2 diabetes mellitus; Translations: [Type 2 diabetes mellitus with diabetic polyneuropathy] Onset: 06-24-2021 Resolved: 10-10-2024 11-24-2022 Chronic Diabetes mellitus without complication (5 sources) Type 2 diabetes mellitus without complications; Translations: [Type 2 diabetes mellitus] Onset: 12-12-2020 10-19-2024 Chronic Diseases of white blood cells (20 sources) Leukemoid reaction; Translations: [Leukemoid reaction] Onset: 10-12-2023 10-12-2023 Chronic Disorders of lipid metabolism (20 sources) Hyperlipidemia, unspecified; Translations: [Mixed hyperlipidemia] Onset: 12-12-2020 11-24-2022 Chronic Diverticulosis and diverticulitis (20 sources) Diverticulosis of large intestine without perforation or abscess without bleeding; Translations: [Diverticulosis of sigmoid colon] Onset: 12-12-2020 02-24-2023 Chronic E Codes: Fall (20 sources) Fall; Translations: [Unspecified fall, initial encounter] Onset: 02-24-2023 02-24-2023 Episodic Esophageal disorders (20 sources) Gastro-esophageal reflux disease without esophagitis; Translations: [Gastroesophageal reflux disease] Onset: 12-12-2020 02-24-2023 Chronic Essential hypertension (20 sources) Essential (primary) hypertension; Translations: [Essential hypertension] Onset: 12-12-2020 Resolved: 10-10-2024 07-29-2023 Chronic Gastritis and duodenitis (1 source) Unspecified chronic gastritis without bleeding; Translations: [Unspecified chronic gastritis without bleeding] Onset: 04-29-2022 Chronic Gout and other crystal arthropathies (20 sources) Gout; Translations: [Gout, unspecified] Onset: 06-29-2023 [...] of the duodenum] Onset: 11-28-2020 Chronic Osteoarthritis (20 sources) Arthritis; Translations: [Unspecified osteoarthritis, unspecified site] 04-12-2024 Chronic Other aftercare (1 source) Other long-term (current) drug therapy; Translations: [OTH RN OFFICE CURRENT DRUG THERAPY] Onset: 06-12-2021 Episodic Other and unspecified benign neoplasm (1 source) Benign carcinoid tumor of the duodenum; Translations: [Benign carcinoid tumor of the duodenum] Onset: 05-12-2022 Episodic Other and unspecified benign neoplasm (20 sources) Tubular adenoma of colon; Translations: [Benign neoplasm of colon, unspecified] Onset: 02-24-2023 02-24-2023 Episodic Other and unspecified benign neoplasm (5 sources) Adenoma of left adrenal gland; Translations: [Benign neoplasm of left adrenal gland] 11-30-2023 Episodic Other and unspecified benign neoplasm (1 source) Benign neoplasm of left adrenal gland; Translations: [Benign neoplasm of left adrenal gland] Onset: 12-13-2024 Episodic Other connective tissue disease (20 sources) Rotator cuff arthropathy of left shoulder; Translations: [Unspecified rotator cuff tear or rupture of left shoulder, not specified as traumatic] Onset: 02-24-2023 02-24-2023 Episodic Other diseases of kidney and ureters (20 sources) Cyst of kidney; Translations: [Cyst of kidney, acquired] Onset: 06-29-2023 07-15-2023 Episodic Other diseases of kidney and ureters (1 source) Cyst of kidney, acquired; Translations: [Cyst of kidney, acquired] Onset: 12-13-2024 Episodic Other disorders of stomach and duodenum (1 source) Other diseases of stomach and duodenum; Translations: [Other diseases of stomach and duodenum] Onset: 05-12-2022 Episodic Other endocrine disorders (20 sources) Hypoglycemia; Translations: [Hypoglycemia, unspecified] Onset: 02-24-2023 02-24-2023 Chronic Other endocrine disorders (20 sources) Mass of left adrenal gland; Translations: [Other specified disorders of adrenal gland] Onset: 08-11-2023 08-11-2023 Chronic Other gastrointestinal disorders (20 sources) Esophageal dysphagia; Translations: [Other dysphagia] Onset: 02-24-2023 02-24-2023 Episodic Other gastrointestinal disorders (20 sources) Slow transit constipation; Translations: [Slow transit constipation] Onset: 02-24-2023 02-24-2023 Episodic Other inflammatory condition of skin (20 sources) Pityriasis rosea; Translations: [Pityriasis rosea] Onset: 02-24-2023 02-24-2023 Chronic Other liver diseases (2 sources) Liver disease, unspecified; Translations: [Liver disease, unspecified] Onset: 05-20-2021 Chronic Other liver diseases (1 source) Abnormal levels of other serum enzymes; Translations: [ABNORMAL LEVELS OTHER SERUM ENZYMES] Onset: 06-12-2021 Episodic Other lower respiratory disease (20 sources) Nodule of lung; Translations: [Solitary pulmonary nodule] Onset: 06-29-2023 07-15-2023 Episodic Other nervous system disorders (20 sources) Chronic pain; Translations: [Other chronic pain] Onset: 02-24-2023 02-24-2023 Chronic Other nervous system disorders (20 sources) Impairment of balance; Translations: [Other abnormalities of gait and mobility] Onset: 02-24-2023 02-24-2023 Episodic Other non-traumatic joint disorders (20 sources) Pain in right knee; Translations: [Pain in joint, lower leg] Onset: 02-24-2023 02-24-2023 Episodic Other non-traumatic joint disorders (5 sources) Pain in left shoulder; Translations: [Pain in joint, shoulder region] 04-13-2024 Episodic Other non-traumatic joint disorders (8 sources) Swollen ankle region; Translations: [Effusion, left ankle] Onset: 01-09-2025 01-09-2025 Episodic Other nutritional; endocrine; and metabolic disorders (20 sources) Body mass index 30+ - obesity; Translations: [Obesity, unspecified] Onset: 02-24-2023 02-24-2023 Chronic Other nutritional; endocrine; and metabolic disorders (20 sources) Obesity; Translations: [Class 1 obesity with serious comorbidity in adult] Onset: 10-10-2024 10-10-2024 Chronic Other nutritional; endocrine; and metabolic disorders (6 sources) Obesity caused by energy imbalance; Translations: [Class 1 obesity due to excess calories with serious comorbidity in adult, unspecified BMI] 10-10-2024 Chronic Other screening for suspected conditions (not mental disorders or infectious disease) (20 sources) Patient encounter status; Translations: [Screening for malignant neoplasms of prostate] Onset: 06-12-2021 07-15-2023 Episodic Other upper respiratory disease (20 sources) Allergic rhinitis; Translations: [Allergic rhinitis, unspecified] Onset: 02-24-2023 02-24-2023 Chronic Other upper respiratory infections (20 sources) Chronic sinusitis; Translations: [Chronic sinusitis, unspecified] Onset: 02-24-2023 02-24-2023 Chronic Residual codes; unclassified (20 sources) Hypersomnia; Translations: [Hypersomnia, unspecified] Onset: 05-31-2024 10-10-2024 Chronic Residual codes; unclassified (1 source) Personal history of other specified conditions; Translations: [PERSONAL HISTORY OTH SPEC CONDITION] Onset: 06-12-2021 Episodic Residual codes; unclassified (1 source) Edema; Translations: [Edema, unspecified] 02-14-2025 Episodic Rheumatoid arthritis and related disease (1 source) Rheumatoid arthritis, unspecified; Translations: [Rheumatoid arthritis, unspecified] Onset: 04-29-2022 Chronic Screening and history of mental health and substance abuse codes (20 sources) Personal history of nicotine dependence; Translations: [Tobacco use and exposure - finding] Onset: 06-12-2021 10-10-2024 Episodic Septicemia (except in labor) (1 source) Other Gram-negative sepsis; Translations: [OTHER GRAM-NEGATIVE SEPSIS] Onset: 06-12-2021 Episodic Syncope (20 sources) Near syncope; Translations: [Syncope and collapse] Onset: 07-10-2023 07-15-2023 Episodic Unclassified (1 source) CONTACT W/AND (SUSP) EXPOS COVID-19; Translations: [CONTACT W/AND (SUSP) EXPOS COVID-19] Onset: 06-12-2021 Unclassified (1 source) Gastric intestinal metaplasia, unspecified; Translations: [Gastric intestinal metaplasia, unspecified] Onset: 04-29-2022 Unclassified (2 sources) Chronic pain of right knee 04-12-2024 Unclassified (1 source) M25.472 - Effusion, left ankle Past or Other Problems Problem Classification Problem Date Documented Da te Episodic/Chronic Administrative/social admission (20 sources) First encounter by subject; Translations: [Persons encountering health services in other specified circumstances] Onset: 07-15-2023 Resolved: 01-09-2025 07-15-2023 Episodic Cancer; other and unspecified primary (1 source) Personal history of malignant carcinoid tumor of small intestine; Translations: [Personal history of malignant carcinoid tumor of sm int] Onset: 04-29-2022 Episodic Deficiency and other anemia (1 source) Anemia, unspecified; Translations: [Anemia, unspecified] Onset: 04-29-2022 Episodic Gastrointestinal hemorrhage (1 source) Hemorrhage of anus and rectum; Translations: [HEMORRHAGE OF ANUS AND RECTUM] Onset: 12-12-2020 Episodic Mood disorders (3 sources) Mood disorders Onset: 01-09-2025 01-09-2025 Other aftercare (2 sources) 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; Translations: [RN OFFICE USE ORAL HYPOGLYCEMIC DX] Onset: 12-12-2020 Episodic [...] Translations: [DYSPHAGIA UNSPECIFIED] Onset: 11-28-2020 Episodic Other nutritional; endocrine; and metabolic disorders (20 sources) Morbid obesity; Translations: [Morbid (severe) obesity due to excess calories] Onset: 11-24-2022 Resolved: 10-10-2024 11-24-2022 Chronic Other upper respiratory infections (20 sources) Acute upper respiratory infection; Translations: [Acute upper respiratory infection, unspecified] Onset: 11-16-2023 Resolved: 12-13-2024 11-16-2023 Episodic Pneumonia (except that caused by tuberculosis or sexually transmitted disease) (20 sources) Left lower zone pneumonia; Translations: [Pneumonia, unspecified organism] Onset: 10-12-2023 Resolved: 10-10-2024 10-12-2023 Episodic Unclassified (5 sources) Onset: 06-18-2023 06-18-2023 Results Test Name Value Interpretation Reference Range Facility XR ANKLE LT MIN 3Von 025 [place] [address] XRay Report Signed Patient: YUSEF CAR MR#: [id number] : 1950 Acct:[id number] Age/Sex: 74 / M ADM Date: 01/09/25 Loc: [facility] Attending Dr: Tomeka Rosado NP Ordering Physician: Tomeka Rosado NP Date of Service: 01/09/25 Procedure(s): XR ankle LT min 3V Accession Number(s): [id number] cc: Tomeka Rosado NP [place] [address] Patient Name: YUSEF CAR MRN: [id number] date: 1950 Sex: M Assigned Patient Location: [facility] Current Patient Location: [facility] Accession/Order Number: [id number] Exam Date: 01/09/2025 10:50 Report Date: 01/09/2025 [...] Dudley M.D. 01/09/2025 10:56 AM Dictation Location: [place] [address] Electronically authenticated by: [id number] Date: 01/09/2025 10:56 Dictated By: Kisha Dudley M.D. Signed By: 01/09/25 1059 DD/ 1056 TD/TT: Window Cover[employer] Sales Consultant: [facility] Radiology, Radiologi MD rocky - 01/09/2025 [place] [address] XRay Report Signed Patient: YUSEF CAR MR#: [id number] : 1950 Acct:[id number] Age/Sex: 74 / M ADM Date: 01/09/25 Loc: [facility] Attending Dr: Tomeka Rosado NP Ordering Physician: Tomeka Rosado NP Date of Service: 01/09/25 Procedure(s): XR ankle LT min 3V Accession Number(s): [id number] cc: Tomeka Rosado NP [place] [id number] Patient Name: YUSEF CAR MRN: [facility]:[id number] date: 1950 Sex: M Assigned Patient Location: [facility] Current Patient Location: [facility] Accession/Order Number: [id number] Exam Date: 01/09/2025 10:50 Report Date: 01/09/2025 [...] Dudley M.D. 01/09/2025 10:56 AM Dictation Location: [place] [address] Electronically authenticated by: [id number] Y Date: 01/09/2025 10:56 Dictated By: Kisha Dudley M.D. Signed By: 01/09/25 1059 DD/ 1056 TD/TT: Window Covering Sales Consultant: [facility] Radiology Study observation (narrative) [facility] [employer] XR ANKLE LT MIN 3VOrdered By : Radiologist Radiology on 01-09-2025 [employer] [facility] Work Phone: MRI ABDOMEN W WO CONTRASTon 12-13-2024 MRI ABDOMEN W WO CONTRAST RADRPT EXAM: MRI ABDOMEN W WO CONTRAST CLINICAL [...] II (simple) cysts and left adrenal adenoma. Adrenal adenoma, renal cysts. 16mL multihance Interpreted by: Veronica Patel MD Signed by: Veronica Patel MD 12/17/24 Final result Normal [facility] BUN & Creatinineon Creatinine [Mass/Vol] 1.07 mg/dL 0.66 - 1.25 mg/dL [facility] Est, Glom Filt Rate 72 - PINF [facility] Comment on above: GFR calculated using CKD-EPI [...] Interpretation and review of laboratory results Abnormal [facility] Urea nitrogen (BldV) [Mass/Vol] 24 mg/dL High 9 - 20 mg/dL [facility] BUN AND CREATININEon 025 Creatinine [Mass/Vol] 1.07 mg/dL Normal 0.66-1.25 [facility] Comment on above: Performed By: #### B UNCRE #### [place] [address] Ph. [phone] GFR/1.73 sq M.predicted among non-blacks MDRD (S/P/Bld) [Vol rate/Area] 72 mL/min/{1.73_m2} Normal >60 [facility] Comment on above: Result Comment: GFR calculated using CKD-EPI (2020) formula.\X0D0A\Stage 1 Kidney damage (e.g., protein in the urine) with normal GFR >=90\X0D0A\Stage 2 Kidney damage with mild decrease in GFR 60-89\X0D0A\Stage 3a Moderate decrease in GFR 45-59\X0D0A\Stage 3b Moderate decrease in GFR 30-44\X0D0A\Stage 4 Severe reduction in GFR 15-29\X0D0A\Stage 5 Kidney failure <15 Performed By: #### B UNCRE #### [place] [address] Ph. [phone] Urea nitrogen [Mass/Vol] 24 mg/dL High 9-20 [facility] Comment on above: Performed By: #### B UNCRE #### [address] [address] Ph. [phone] No Panel Informationon 11-30 GEMA Mccartney 11/30/2024 10:44 AM L Inj/Asp: [...] neurovascular intact s/p injection. . ( Codes 18977) Procedure, treatment alternatives, risks and benefits explained, specific risks discussed. Consent was given by the patient. Patient was prepped and draped in the usual sterile fashion. [facility] Urine Cultureon 11-28-2024 Bacteria identified Cx Nom (U) No Growth 2 Days PERFORMED BY: [place] [address] PATHOLOGIST SWEATBAND FLANGER ADE BELTRAN M.D. Normal [facility] Comment on above: Performed By: #### C UU #### [address] XR ABDOMEN 1Von 11-28-2024 [place] [address] XRay Report Signed Patient: YUSEF CAR MR#: [id number] : 1950 Acct:[id number] Age/Sex: 74 / M ADM Date: 11/28/24 Loc: LAB Attending Dr: Tomeka Rosado NP Ordering Physician: Tomeka Rosado NP Date of Service: 11/28/24 Procedure(s): XR abdomen 1V Accession Number(s): [id number] cc: Tomeka Rosado NP The [place] [id number] Patient Name: YUSEF CAR MRN: [facility]:[id number] date: 1950 Sex: M Assigned Patient Location: LAB Current Patient Location: LAB Accession/Order Number: [id number] Exam Date: 11/28/2024 16:16 Report Date: 11/28/2024 16:17 At the request of: TOMEAK ROSADO NP Procedure: XR abdomen 1V XR [...] Gallardo M.D. 11/28/2024 4:17 PM Dictation Location: [place] [address] Electronically authenticated by: [id number] Y Date: 11/28/2024 16:17 Dictated By: Jose A Gallardo M.D. Signed By: 11/28/24 1620 DD/ 1617 TD/TT: Window Covering Sales Consultant: [facility] Radiology Radiologdidi hidalgo MD - 11/28/[address] [address] XRay Report Signed Patient: YUSEF CAR MR#: [id number] : 1950 Acct:[id number] Age/Sex: 74 / M ADM Date: 11/28/24 Loc: LAB Attending Dr: Tomeka Rosado NP Ordering Physician: Tomeka Rosado NP Date of Service: 11/28/24 Procedure(s): XR abdomen 1V Accession Number(s): [id number] cc: Tomeka Rosado NP [address] [address] Patient Name: YUSEF CAR MRN: [id number] date: 1950 Sex: M Assigned Patient Location: LAB Current Patient Location: LAB Accession/Order Number: [id number] Exam Date: 11/28/2024 16:16 Report Date: 11/28/2024 [...] Gallardo M.D. 11/28/2024 4:17 PM Dictation Location: [place] [address] Electronically authenticated by: [id number] Y Date: 11/28/2024 16:17 Dictated By: Jose A Gallardo M.D. Signed By: 11/28/24 1620 DD/ 1617 TD/TT: Window Covering Sales Consultant: [facility] Radiology Study observation (narrative) [facility] XR ABDOMEN 1VOrdered By: Dwain iolognaresh Radiology on 11-28-2024 [facility] Work Phone: Orders Onlyon 11-23-2024 Orders Only [id number] Nika Car 1950 M Date Provider Department Center 11/23/2024 [id number], HISTORICAL [facility] Family History Problem Relation Age of Onset Angina Mother Cancer Mother Heart attack Mother Heart failure Mother Hypertension Mother Cancer Father Diabetes type II Father Hypertension Father Cancer Sister Diabetes type II Sister Cancer Brother Diabetes type II Brother Hypertension Brother Cancer Brother Diabetes type II Brother Family Status - Relation Status Age at Mother Father Sister Brother Brother [facility] Office Visiton 11-22-2024 Follow-up visit [id number] Nika Car F 1950 M Date Provider Department Center 11/22/2024 HANNA NOE EZEQUIEL [facility] Family History Problem Relation [...] Mother Father Sister Brother Brother Level of Service:33009 [place] OFFICE/OUTPATIENT ESTABLISHED LOW MDM 20 MIN [facility] L Inj/Asp: L glenohumeralon 08-12-2024 GEMA Mccartney 08/12/2024 9:19 AM L Inj/Asp: L glenohumeral on 08/12/2024 9:17 AM Indications: pain and diagnostic evaluation Details: 25 G needle, ultrasound-guided posterior approach Medications: 1 mL bupivacaine PF 0.5 %; 40 mg methylPREDNISolone Acetate 20 MG/ML The shoulder was prepped with isopropyl alcohol. Allowed time to fully dry. Under ultrasound guidance the glenohumeral joint was identified. A plain was established to avoid any neurovascular structures or lung, a 25 G needle was placed into the joint under ultrasound guidance and image captured to patients chart demonstrating proper placement in glenohumeral joint. I then injected 40 mg depomedrol and 1 ml of 0.5% bupivacaine Pt tolerated this well and neurovascular intact s/p injection. . ( Codes 70825-TC) Procedure, treatment alternatives, risks and benefits explained, specific risks discussed. Consent was given by the patient. Patient was prepped and draped in the usual sterile fashion. [facility] HbA1c (Bld) [Mass fraction]O rdered By: Ruby Campbell on 07-13-2024 Interpretation and review of laboratory results Abnormal [facility] Laboratory - Hematology and Cell countsOrdered By: Ruby Campbell on 07-13-2024 HbA1c (Bld) [Mass fraction] 7.70 % [facility] 36on 06-30-2024 36 Patient's chinyere hawkins and said he had an EGD today at in [place]. Before the EGD was completed, she said the anesthesiologist came out to speak with her. She said the doctor told her that the patient could be in complete heart block but he wasn't sure. Said his HR got down to the 30's for a few seconds but then was normal, BP also normal. The EGD was then completed. said the nurses in recovery were not made aware of any of this. She was told all his vitals during recovery were normal also. Patient is asymptomatic. I advised to come into the office and have 30 day event monitor placed. Patient got on the phone and I explained to if he gets dizzy/lightheaded or has syncopal episode he needs to report to the nearest ED right away. He will come into the office tomorrow morning for placement of monitor. Told him I'd also pass this along to Dr. Knight for further recommendations. Normal [facility] EGDon 06-30-2024 Esophagogastroduodenosco py Table formatting from the original result was not included. Impression The cricopharynx, upper third of the esophagus, middle third of the esophagus, lower third of the esophagus and GE junction appeared normal. Moderate edematous, erythematous mucosa with erosion in the body of the stomach and antrum, consistent with gastritis; performed cold forceps biopsy to rule out H. pylori Polyp in the cardia was removed with cold snare Scarred mucosa in the duodenal bulb; electronic chromoendoscopy (NBI) was used; performed cold forceps biopsy for dysplasia screening The 2nd part of the duodenum appeared normal. Findings The cricopharynx, upper third of the esophagus, middle third of the esophagus, lower third of the esophagus and GE junction appeared normal. Moderate, patchy edematous and erythematous mucosa with erosion in the body of the stomach and antrum, consistent with gastritis; performed cold forceps biopsy to rule out H. pylori One sessile polyp measuring 5-9 mm in the cardia; performed cold snare with complete en bloc removal and retrieved specimen Patchy scarred mucosa in the duodenal bulb; electronic chromoendoscopy (NBI) was used; performed cold forceps biopsy for dysplasia screening The 2nd part of the duodenum appeared normal. Recommendation Await pathology results Repeat EGD in 6 months, due: 12/27/2024 Indication Primary malignant neuroendocrine neoplasm of duodenum [...] Event Event Time ENDO SCOPE IN TIME 06/30/2024 9:54 AM ENDO SCOPE OUT TIME 06/30/2024 10:02 AM Specimens ID Type Source Tests Collected by Time 1 : Bx Scar Tissue DUODENAL BULB BIOPSY SURGICAL PATHOLOGY EXAM Grace Patricia 06/30/2024 0957 2 : r/o H Pylori Tissue STOMACH ANTRUM BIOPSY SURGICAL PATHOLOGY EXAM Grace Patricia 06/30/2024 0959 3 : Polyp Cardia Tissue STOMACH BODY/CORPUS POLYPECTOMY SURGICAL PATHOLOGY EXAM Grace Patricia 06/30/2024 1001 Procedure Location [facility] [address] [facility] [id number] Referring Provider Jeremiah Magaña MD Procedure Provider Jeremiah Magaña MD [facility] EGD Study observation Narrat osvaldo 06-30-2024 Table formatting fro m the original result was not included. Impression The cricopharynx, upper third of the esophagus, middle third of the esophagus, lower third of the esophagus and GE junction appeared normal. Moderate edematous, erythematous mucosa with erosion in the body of the stomach and antrum, consistent with gastritis; performed cold forceps biopsy to rule out H. pylori Polyp in the cardia was removed with cold snare Scarred mucosa in the duodenal bulb; electronic chromoendoscopy (NBI) was used; performed cold forceps biopsy for dysplasia screening The 2nd part of the duodenum appeared normal. Findings The cricopharynx, upper third of the esophagus, middle third of the esophagus, lower third of the esophagus and GE junction appeared normal. Moderate, patchy edematous and erythematous mucosa with erosion in the body of the stomach and antrum, consistent with gastritis; performed cold forceps biopsy to rule out H. pylori One sessile polyp measuring 5-9 mm in the cardia; performed cold snare with complete en bloc removal and retrieved specimen Patchy scarred mucosa in the duodenal bulb; electronic chromoendoscopy (NBI) was used; performed cold forceps biopsy for dysplasia screening The 2nd part of the duodenum appeared normal. Recommendation Await pathology results Repeat EGD in 6 months, due: 12/27/2024 Indication Primary malignant neuroendocrine neoplasm of duodenum [...] Event Event Time ENDO SCOPE IN TIME 06/30/2024 9:54 AM ENDO SCOPE OUT TIME 06/30/2024 10:02 AM Specimens ID Type Source Tests Collected by Time 1 : Bx Scar Tissue DUODENAL BULB BIOPSY SURGICAL PATHOLOGY EXAM Grace Elizabethh 06/30/2024 0957 2 : r/o H Pylori Tissue STOMACH ANTRUM BIOPSY SURGICAL PATHOLOGY EXAM Graceliang Elizabethh 06/30/2024 0959 3 : Polyp Cardia Tissue STOMACH BODY/CORPUS POLYPECTOMY SURGICAL PATHOLOGY EXAM Grace Elizabethh 06/30/2024 1001 Procedure Location [facility] [address] [facility] [id number] Referring Provider Jeremiah Magaña MD Procedure Provider Jeremiah Magaña MD [facility] Work Phone: [facility] Work Phone: Radiology Study observation (narrative) [facility] Work Phone: Glucose Test strip manual (B ld) [Mass/Vol]on 06-30-2024 Glucose [Mass/Vol] 193 mg/dL High 74 - 99 mg/dL [facility] Interpretation and review of laboratory results Abnormal [facility] Glucose [Mass/Vol] 193 mg/dL High 74-99 [facility] Comment on above: Performed By: #### 2 [id number] #### OLIMPIA WARE ([id number]) [facility] ([facility]) [id number] [place], [place] [id number] Surgical pathology studyon 0 06-30-2024 Surgical pathology study Pathology repor t.total SEE COMMENT Surgical Pathology Case: [id number] Authorizing Provider: Jeremiah Magaña MD Collected: 06/30/2024 0957 [facility] Received: 06/30/2024 1055 Pathologist: Olimpia Ware MD Specimens: A) - DUODENAL BULB BIOPSY, Bx Scar B) - STOMACH ANTRUM BIOPSY, r/o H Pylori C) - STOMACH BODY/CORPUS POLYPECTOMY, Polyp Cardia Path report.final diagnosis SEE COMMENT A. DUODENAL BULB BIOPSY: Small bowel mucosa with no significant diagnostic alteration. B. STOMACH ANTRUM BIOPSY: Antral mucosa with features of reactive gastropathy. No morphologic evidence of Helicobacter pylori-like organisms. C. STOMACH BODY/CORPUS POLYPECTOMY: Oxyntic mucosa with features consistent with fundic gland polyp. Laboratory comment By the signature on this report, the individual or group listed as making the Final Interpretation/Diagnosis certifies that they have reviewed this case. 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 Rule out H.pylori Path report.gross observation SEE COMMENT A: Received in formalin, labeled with the patient's name and hospital number and 1, duodenal bulb bx,scar bx , are multiple fragments of deal soft tissue aggregating to 0.6 x 0.3 x 0.2 cm. The specimen is submitted in toto in 1 cassette. /[facility] B: Received in formalin, labeled with the patient's name and hospital number and 2,stomach antrum bx, r/o H-pylori, is a fragment of deal soft tissue measuring 0.3 x 0.3 x 0.2 cm. The specimen is submitted in toto in 1 cassette. /[facility] C: Received in formalin, labeled with the patient's name and hospital number and 3,stomach polyp, polyp cardia , is a fragment of deal soft tissue measuring 0.5 x 0.3 x 0.3 cm. The specimen is submitted in toto in 1 cassette. /[facility] Telephoneon 06-30-2024 Telephone [id number] Nika Car ert F 1950 Date Provider Department Center 06/30/2024 Paulette-MARGARITA NARAYAN EZEQUIEL Arteaga Family History Problem Relation Age of Onset Angina Mother Cancer Mother Heart attack Mother Heart failure Mother Hypertension Mother Cancer Father Diabetes type II Father Hypertension Father Cancer Sister Diabetes type II Sister Cancer Brother Diabetes type II Brother Hypertension Brother Cancer Brother Diabetes type II Brother Family Status - Relation Status Age at Mother Father Sister Brother Brother Normal [facility] GLUCOSE-POCTon 06-30-2024 Glucose [Mass/Vol] 193 mg/dL High 74 - 99 mg/dL [facility] Interpretation and review of laboratory results Abnormal [facility] Original Ordering Provider: JEREMIAH BURK [facility] Office Visiton 05-31-2024 Follow-up visit [id number] Nika Car ert F 1950 Date Provider Department Center 05/31/2024 NOE FERREIRA Family History Problem Relation Age of Onset Angina Mother Cancer Mother Heart attack Mother Heart failure Mother Hypertension Mother Cancer Father Diabetes type II Father Hypertension Father Cancer Sister Diabetes type II Sister Cancer Brother Diabetes type II Brother Hypertension Brother Cancer Brother Diabetes type II Brother Family Status - Relation Status Age at Mother Father Sister Brother Brother Level of Service:40559 [place] OFFICE/OUTPATIENT ESTABLISHED LOW MDM 20 MIN Normal [facility] ALL CBC WITH AUTO DIFFon BASOPHILS ABSOLUTE AUTO 0 N [facility] Healthcare Basophils/100 WBC (Bld) 0.1 % Low 0.2 - 2.0 % [facility] Eosinophils/100 WBC (Bld) 0.1 % Low 0.9 - 7.0 % [facility] Erythrocyte distribution width (RBC) [Ratio] 16.1 % High 11.0 - 15.0 % [facility] Hematocrit (Bld) [Volume fraction] 44.8 % 42.0 - 54.0 % [facility] Hemoglobin (Bld) [Mass/Vol] 14.3 g/dL 14.0 - 18.0 g/dL [facility] IMMATURE GRANULOCYTES ABS AUTO 0.04 High [facility] Immature granulocytes/100 WBC (Bld) 0.3 % 0.0 - 0.5 % [facility] Interpretation and review of laboratory results Abnormal [facility] LYMPHOCYTES ABSOLUTE AUTO 1.2 [facility] Lymphocytes/100 WBC (Bld) 8.8 % Low 20.5 - 60.0 % [facility] MCH (RBC) [Entitic mass] 28.1 pg 25. 9 - 34.0 pg [facility] MCHC (RBC) [Mass/Vol] 31.9 g/dL 29.9 - 35.2 g/dL [facility] MCV (RBC) [Entitic vol] 88 fL 80.0 - 94.0 fL [facility] MONOCYTES ABSOLUTE AUTO 0.7 [facility] Monocytes/100 WBC (Bld) 4.9 % 1.7 - 12.0 % [facility] NEUTROPHILS ABSOLUTE AUTO 11.6 High [facility] Neutrophils/100 WBC (Bld) 85.8 % High 43.0 - 75.0 % [facility] Platelet mean volume (Bld) [Entitic vol] 10 fL 9.5 - 13.5 fL [facility] TBH EO # 0 [facility] TBH PLT 379 [facility] TB RBC 5.09 [facility] TB WBC 13.5 High [facility] No Panel Informationon 04-13 GEMA Mccartney 04/13/2024 12:25 PM L Inj/Asp: L subacromial bursa on 04/13/2024 9:47 AM Indications: pain Details: 21 G needle, posterior approach Medications: 40 mg methylPREDNISolone acetate 40 MG/ML; 1 mL bupivacaine PF 0.5 % Outcome: tolerated well, no immediate complications Utilizing aseptic technique with universal precautions . Pt given injection Left Shoulder SA space ( code 52724 LT) Procedure, treatment alternatives, risks and benefits explained, specific risks discussed. Consent was given by the patient. Patient was prepped and draped in the usual sterile fashion. [facility] XR Shoulder - left 2 Viewson 04-13-2024 Imaging Result: AP and Scap Y left shoulder: No acute fracture or dislocation. Mild subchondral sclerosis to humeral head and inferior leon spurring. Degenerative changes noted to subacromial space consider with likely cuff arthropathy/ chronic cuff tear Metallic anchor humeral head without dislodgment.. Visualized lung dahl clear. Impression: Moderate shoulder arthritis concerning for rotator cuff arthropathy [facility] Radiology Study observation (narrative) [facility] MLR HEMOGLOBIN A1Con 024 Glucose [Mass/Vol] 151 mg/dL [facility] HbA1c (Bld) [Mass fraction] 6.9 % High 4.5 - 6.2 % [facility] Comment on above: ADA RECOMMENDED LIMI T 4.0 - 6.0 ADA THERAPEUTIC TARGET < 7.0 ACTION SUGGESTED > 7.0 Interpretation and review of laboratory results Abnormal [facility] CT CHEST W IV CONTRASTon CT CHEST W IV CONTRAST Interpreted By: Lul Escalante and Maltbie Grace STUDY: CT CHEST W IV CONTRAST; 12/31/2023 7:55 am INDICATION: Signs/Symptoms:LUNG NODULE. COMPARISON: CT chest abdomen pelvis 05/26/2023 ACCESSION NUMBER(S): [id number] ORDERING CLINICIAN: NEFTALI KNOWLES TECHNIQUE: Helical data [...] Morales MD. This study was interpreted at [facility], [place], [place]. Signed by: Lul Carver 01/01/2024 9:17 PM Dictation workstation: [id number] [facility] EGDon 12-29-2023 Esophagogastroduodenosco py Table formatting from [...] BIOPSY SURGICAL PATHOLOGY EXAM Grace Patricia 12/29/2023 1334 Procedure Location [facility] [address] [facility] [phone] Referring Provider Jeremiah Magaña MD Procedure Provider Jeremiah Magaña MD [facility] EGD Study observation Narrat osvaldo 12-29-2023 Table formatting fro m the original result [...] BIOPSY SURGICAL PATHOLOGY EXAM Grace Patricia 12/29/2023 5792 2 : r/o H Pylori Tissue STOMACH ANTRUM BIOPSY SURGICAL PATHOLOGY EXAM Grace Patricia 12/29/2023 3914 Procedure Location [facility] [address] [facility] [address] Referring Provider Jeremiah Magaña MD Procedure Provider Jeremiah Magaña MD [facility] Work Phone: [facility] Work Phone: Radiology Study observation (narrative) [facility] Work Phone: Glucose Test strip manual (B ld) [Mass/Vol]on 12-29-2023 Glucose [Mass/Vol] 147 mg/dL High 74 - 99 mg/dL [facility] Interpretation and review of laboratory results Abnormal [facility] Glucose [Mass/Vol] 147 mg/dL High 74-99 [facility] Comment on above: Performed By: #### 2 341-6 #### OLIMPIA WARE ([id number]) [facility] ([facility]) [address] [place] [address] Surgical pathology studyon 0 12-29-2023 Surgical pathology study Pathology repor t.total SEE COMMENT Surgical Pathology Case: [id number] Authorizing Provider: Jeremiah Magaña MD Collected: 12/29/2023 1332 [facility] Received: 12/29/2023 1429 Pathologist: Spike Massey [...] in toto in one cassette. [facility] Normal [place] CBC W Auto Differential pane l (Bld)on 12-28-2023 Basophils (Bld) [#/Vol] 0.04 x10*3/uL Normal 0.00-0.10 [facility] Comment on above: Performed By: #### 5 7021-8 #### OLIMPIA WARE ([id number]) [facility] ([facility]) [address] [place] [address] Basophils/100 WBC (Bld) 0.4 % Normal 0.0-2.0 [facility] Comment on above: Performed By: #### 5 7021-8 #### OLIMPIA WARE ([id number]) [facility] ([facility]) [address] [place] [address] Eosinophils (Bld) [#/Vol] 0.18 x10*3/uL Normal 0.00-0.40 [facility] Comment on above: Performed By: #### 5 7021-8 #### OLIMPIA WARE ([id number]) [facility] ([facility]) [address] [place] [address] Eosinophils/100 WBC (Bld) 1.9 % Normal 0.0-6.0 [facility] Comment on above: Performed By: #### 5 7021-8 #### OLIMPIA WARE ([id number]) [facility] ([facility]) [address] [place] [address] Erythrocyte distribution width (RBC) [Ratio] 16.3 % High 11.5-14.5 [facility] Comment on above: Performed By: #### 5 7021-8 #### OLIMPIA WARE ([id number]) [facility] ([facility]) [address] [place] [address] Hematocrit (Bld) [Volume fraction] 43.0 % Normal 41.0-52.0 [facility] Comment on above: Performed By: #### 5 7021-8 #### OLIMPIA WARE ([id number]) [facility] ([facility]) [id number] [place] [address] Hemoglobin (Bld) [Mass/Vol] 13.4 g/dL Low 13.5-17.5 [facility] Comment on above: Performed By: #### 5 7021-8 #### OLIMPIA WARE ([id number]) [facility] ([facility]) [address] [place] [address] Immature granulocytes (Bld) [#/Vol] 0.03 x10*3/uL Normal 0.00-0.50 [facility] Comment on above: Performed By: #### 5 7021-8 #### OLIMPIA WARE ([id number]) [facility] ([facility]) [address] [place] [address] Immature granulocytes/100 WBC (Bld) 0.3 % Normal 0.0-0.9 [facility] Comment on above: Result Comment: Halima ture Granulocyte Count (IG) includes promyelocytes, myelocytes and metamyelocytes but does not include bands. Percent differential counts (%) should be interpreted in the context of the absolute cell counts (cells/UL). Performed By: #### 5 7021-8 #### OLIMPIA WARE ([id number]) [facility] ([facility]) [address] [place] [address] Lymphocytes (Bld) [#/Vol] 1.72 x10*3/uL Normal 0.80-3.00 [facility] Comment on above: Performed By: #### 5 7021-8 #### OLIMPIA WARE ([id number]) [facility] ([facility]) [address] [place] [address] Lymphocytes/100 WBC (Bld) 18.0 % Normal 13.0-44.0 [facility] Comment on above: Performed By: #### 5 7021-8 #### OLIMPIA WARE ([id number]) [facility] ([facility]) [id number] [place] [address] MCH (RBC) [Entitic mass] 27.8 pg Normal 26.0-34.0 [facility] Comment on above: Performed By: #### 5 7021-8 #### OLIMPIA WARE ([id number]) [facility] ([facility]) [address] [place] [address] MCHC (RBC) [Mass/Vol] 31.2 g/dL Low 32.0-36.0 [facility] Comment on above: Performed By: #### 5 7021-8 #### OLIMPIA WARE ([id number]) [facility] ([facility]) [address] [place] [address] MCV (RBC) [Entitic vol] 89 fL Normal 80-100 [facility] Comment on above: Performed By: #### 5 7021-8 #### OLIMPIA WARE ([id number]) [facility] ([facility]) [address] [place] [address] Monocytes (Bld) [#/Vol] 0.75 x10*3/uL Normal 0.05-0.80 [facility] Comment on above: Performed By: #### 5 7021-8 #### OLIMPIA WARE ([id number]) [facility] ([facility]) [address] [place] [address] Monocytes/100 WBC (Bld) 7.9 % Normal 2.0-10.0 [facility] Comment on above: Performed By: #### 5 7021-8 #### OLIMPIA WARE ([id number]) [facility] ([facility]) [address] [place] [address] Neutrophils (Bld) [#/Vol] 6.83 x10*3/uL High 1.60-5.50 [facility] Comment on above: Result Comment: Perc ent differential counts (%) should be interpreted in the context of the absolute cell counts (cells/uL). Performed By: #### 5 7021-8 #### OLIMPIA WARE ([id number]) [facility] ([facility]) [address] [place] [address] Neutrophils/100 WBC (Bld) 71.5 % Normal 40.0-80.0 [facility] Comment on above: Performed By: #### 5 7021-8 #### OLIMPIA WARE ([id number]) [facility] ([facility]) [address] [place] [address] Nucleated RBC/100 WBC (Bld) [Ratio] 0.0 /100 WBCs Normal 0.0-0.0 [facility] Comment on above: Performed By: #### 5 7021-8 #### OLIMPIA WARE ([id number]) [facility] ([facility]) [address] [place] [address] Platelets (Bld) [#/Vol] 365 x10*3/uL Normal 150-450 [facility] Comment on above: Performed By: #### 5 7021-8 #### OLIMPIA WARE ([id number]) [facility] ([facility]) [address] [place] [address] RBC (Bld) [#/Vol] 4.82 x10*6/uL Normal 4.50-5.90 [facility] Comment on above: Performed By: #### 5 7021-8 #### OLIMPIA WARE ([id number]) [facility] ([facility]) [address] [place] [address] WBC (Bld) [#/Vol] 9.6 x10*3/uL Normal 4.4-11.3 [facility] Comment on above: Performed By: #### 5 7021-8 #### OLIMPIA WARE ([id number]) [facility] ([facility]) [address] [place] [address] Comprehensive metabolic 2000 panelon 12-28-2023 Albumin BCP dye [Mass/Vol] 4.1 g/dL Normal 3.4-5.0 [facility] Comment on above: Performed By: #### 2 4323-8 #### OLIMPIA WARE ([id number]) [facility] ([facility]) [address] [place] [address] ALP [Catalytic activity/Vol] 94 U/L Normal 33-136 [facility] Comment on above: Performed By: #### 2 4323-8 #### OLIMPIA WARE ([id number]) [facility] ([facility]) [address] [place] [address] ALT With P-5'-P [Catalytic activity/Vol] 15 U/L Normal 10-52 [facility] Comment on above: Result Comment: Kanwal ents treated with Sulfasalazine may generate falsely decreased results for ALT. Performed By: #### 2 4323-8 #### OLIMPIA WARE ([id number]) [facility] ([facility]) [address] [place] [address] Anion gap [Moles/Vol] 12 mmol/L Normal 10-20 [facility] Comment on above: Performed By: #### 2 4323-8 #### OLIMPIA WARE ([id number]) [facility] ([facility]) [address] [place] [address] AST With P-5'-P [Catalytic activity/Vol] 13 U/L Normal 9-39 [facility] Comment on above: Performed By: #### 2 4323-8 #### OLIMPIA WARE ([id number]) [facility] ([facility]) [address] [place] [address] Bilirubin [Mass/Vol] 0.4 mg/dL Normal 0.0-1.2 [facility] Comment on above: Performed By: #### 2 4323-8 #### OLIMPIA WARE (75383) [facility] ([facility]) [address] [place] [address] Calcium [Mass/Vol] 9.6 mg/dL Normal 8.6-10.3 [facility] Comment on above: Performed By: #### 2 4323-8 #### OLIMPIA WARE ([id number]) [facility] ([facility]) [address] [place] [address] Chloride [Moles/Vol] 104 mmol/L Normal 98-107 [facility] Comment on above: Performed By: #### 2 4323-8 #### OLIMPIA WARE ([id number]) [facility] ([facility]) [address] [place] [address] CO2 [Moles/Vol] 27 mmol/L Normal 21-32 [facility] Comment on above: Performed By: #### 2 4323-8 #### OLIMPIA WARE (84936) [facility] ([facility]) [address] [place] [address] Creatinine [Mass/Vol] 1.18 mg/dL Normal 0.50-1.30 [facility] Comment on above: Performed By: #### 2 4323-8 #### OLIMPIA WARE ([id number]) [facility] ([facility]) [address] [place] [address] Glomerular filtration rate/1.73 sq M.predicted 65 mL/min/1.73m*2 Normal >60 [facility] Comment on above: Result Comment: Calc ulations of estimated GFR are performed using the 2020 CKD-EPI Study Refit equation without the race variable for the IDMS-Traceable creatinine methods. https://jasn.asnjournals.org/content//ASN.186 9968328 Performed By: #### 2 4323-8 #### OLIMPIA WARE ([id number]) [facility] ([facility]) [address] [place] [address] Glucose [Mass/Vol] 171 mg/dL High 74-99 [facility] Comment on above: Performed By: #### 2 4323-8 #### OLIMPIA WARE ([id number]) [facility] ([facility]) [address] [place] [address] Potassium [Moles/Vol] 5.0 mmol/L Normal 3.5-5.3 [facility] Comment on above: Performed By: #### 2 4323-8 #### OLIMPIA WARE ([id number]) [facility] ([facility]) [address] [place] [address] Protein [Mass/Vol] 6.7 g/dL Normal 6.4-8.2 [facility] Comment on above: Performed By: #### 2 4323-8 #### OLIMPIA WARE (55178) [facility] ([facility]) [address] [place] [address] Sodium [Moles/Vol] 138 mmol/L Normal 136-145 [facility] Comment on above: Performed By: #### 2 4323-8 #### OLIMPIA WARE ([id number]) [facility] ([facility]) [address] [place] [address] Urea nitrogen [Mass/Vol] 23 mg/dL Normal 6-23 [facility] Comment on above: Performed By: #### 2 4323-8 #### OLIMPIA WARE ([id number]) [facility] ([facility]) [address] [place] [address] BUN & Creatinineon 4 Creatinine [Mass/Vol] 1.28 mg/dL High 0.66 - 1.25 mg/dL [facility] Est, Glom Filt Rate 58 Low - PINF [facility] Comment on above: GFR calculated using CKD-EPI [...] Interpretation and review of laboratory results Abnormal [facility] Urea nitrogen (BldV) [Mass/Vol] 25 mg/dL High 9 - 20 mg/dL [facility] ENDOSCOPIC ULTRASOUND (UPPER )on 10-07-2023 ENDOSCOPIC ULTRASOUND [...] EXAM Mayelin Page 10/07/2023 0811 Procedure Location [facility] [address] [facility] [address] [place] [address] [place] [address] Procedure Provider Jeremiah Magaña MD [facility] Endoscopic Ultrasound (Upper )on 10-07-2023 Table formatting [...] EXAM Mayelin Page 10/07/2023 0811 Procedure Location [facility] [address] [facility] [address] [place] [address] [place] [address] Procedure Provider Jeremiah Magaña MD [facility] Work Phone: [facility] Work Phone: Radiology Study observation (narrative) [facility] Work Phone: Glucose Test strip manual (B ld) [Mass/Vol]on 10-07-2023 Glucose [Mass/Vol] 149 mg/dL High 74 - 99 mg/dL [facility] Interpretation and review of laboratory results Abnormal [facility] Glucose [Mass/Vol] 149 mg/dL High 74-99 [facility] Comment on above: Performed By: #### 2 341-6 #### OLIMPIA WARE ([id number]) [facility] ([facility]) [address] [place] [address] Surgical pathology studyon 0 10-07-2023 Surgical pathology study Pathology repor t.total SEE COMMENT Surgical Pathology Case: [id number] Authorizing Provider: Jeremiah Magaña MD Collected: 10/07/2023 0811 [facility] Received: 10/07/2023 0942 Pathologist: Gilda Butterfield [...] determined by the Department of Pathology at [facility]. The FDA does not require this [...] and negative controls which stained appropriately. [facility] URINE CULTUREon 07-31-2023 Bacteria identified Cx Nom (U) MICROBIOLOGY REPORT New Replaced By [facility], [address] [place] [address], [place], [address] PATIENT: YUSEF CAR LOCATION: [facility] - - : 1950 AGE: 73 SEX: M ADM: 07/31/23 Att. Physician: PHYSICIAN, NON-STAFF Order Id: [id number] Req. Physician: PHYSICIAN, NON-STAFF Source: urine, clean catch Site: Collected: 07/31/23 11:50 Current Antibiotics: not stated Antibiotics comment: - C O M M E N T S NV - Source of Urine Collection? Urine clean catch STATUS OF ORDERED AND REPORTED TESTS URINE CULTURE FINAL 08/02/23 URINE CULTURE FINAL 08/02/23 07:56 08/01/23 No growth-preliminary 08/02/23 No growth Normal [facility] Study Interpretation of outs jeanna studyon 07-28-2023 There is no result f or this study. This is a placeholder for comparison films only. [facility] EGD Study observation Narrat iveon 06-10-2023 Table [...] EXAM Mayelin Page 06/10/2023 0859 Procedure Location [facility] [address] [facility] [id number] Referring Provider Jazlyn Mcarthur, Chemical Manager-university internship [address] [address] [facility] [place] [address] Procedure Provider Vic Mcrae MD [facility] Work Phone: [facility] Work Phone: Radiology Study observation (narrative) [facility] Work Phone: Glucose Test strip manual (B ld) [Mass/Vol]on 06-10-2023 Glucose [Mass/Vol] 113 mg/dL High 74 - 99 mg/dL [facility] Interpretation and review of laboratory results Abnormal [facility] CT Chest and Abdomen and [...] Juanjose Walters 05/27/2023 11:47 AM Dictation workstation: [id number] [id number]AL Interpreted By: Juanjose Jefferson, STUDY: CT CHEST ABDOMEN PELVIS W IV CONTRAST; 05/26/2023 10:16 am INDICATION: 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 COMPARISON: CT abdomen 12/25/2020 ACCESSION NUMBER(S): [id number] ORDERING CLINICIAN: JAZLYN MCARTHUR TECHNIQUE: Contiguous axial [...] scans. COMPARISON: CT abdomen 12/25/2020 ACCESSION NUMBER(S): [id number] ORDERING CLINICIAN: JAZLYN MCARTHUR TECHNIQUE: Contiguous axial [...] Juanjose Walters 05/27/2023 11:47 AM Dictation workstation: [id number] [facility] Work Phone: CT Chest and Abdomen and Pel vis W contrast IVOrdered By: Juanjose Walters on 05-27-2023 [facility] Work Phone: CT Chest and Abdomen and Pel vis W contrast Kristie 05-26-2023 Radiology Study observation (narrative) [facility] Work Phone: CBC AND DIFFERENTIALon 05-12 % AUTOMATED IMMATURE GRAN Canceled Normal [facility] Comment on above: Order Comment: TEST CBC AND DIFFERENTIAL WAS CANCELLED, 05/12/2022 10:[address] wagoner doesnot needed. Result Comment: Halima ture Granulocyte Count (IG) includes promyelocytes, myelocytes and metamyelocytes but does not include bands. Percent differential counts (%) should be interpreted in the context of the absolute cell counts (cells/L). Performed By: #### C BCDF #### [facility] [address] [place] [address] % BASOPHIL Canceled Normal [facility] Comment on above: Order Comment: TEST CBC AND DIFFERENTIAL WAS CANCELLED, 05/12/2022 10:[address] ciaran mcmanus needed. Performed By: #### C BCDF #### [address] [place] [address] % EOSINOPHIL Canceled Normal [facility] Comment on above: Order Comment: TEST CBC AND DIFFERENTIAL WAS CANCELLED, 05/12/2022 10:[address] ciaran mcmanus needed. Performed By: #### C BCDF #### [address] [place] [address] % LYMPHOCYTE Canceled Normal [facility] Comment on above: Order Comment: TEST CBC AND DIFFERENTIAL WAS CANCELLED, 05/12/2022 10:[address] ciaran mcmanus needed. Performed By: #### C BCDF #### [address] [place] [address] % MONOCYTE Canceled Normal [facility] Comment on above: Order Comment: TEST CBC AND DIFFERENTIAL WAS CANCELLED, 05/12/2022 10:[address] ciaran mcmanus needed. Performed By: #### C BCDF #### [address] [place] [address] % NEUTROPHIL Canceled Normal [facility] Comment on above: Order Comment: TEST CBC AND DIFFERENTIAL WAS CANCELLED, 05/12/2022 10:[address] ciaran mcmanus needed. Performed By: #### C BCDF #### [address] [place] [address] BASOPHIL Canceled Normal [facility] Comment on above: Order Comment: TEST CBC AND DIFFERENTIAL WAS CANCELLED, 05/12/2022 10:[address] ciaran mcmanus needed. Performed By: #### C BCDF #### [address] [place] [address] DIFFERENTIAL Canceled Normal [facility] Comment on above: Order Comment: TEST CBC AND DIFFERENTIAL WAS CANCELLED, 05/12/2022 10:[address] ciaran mcmanus needed. Performed By: #### C BCDF #### [address] [place] [address] EOSINOPHIL Canceled Normal [facility] Comment on above: Order Comment: TEST CBC AND DIFFERENTIAL WAS CANCELLED, 05/12/2022 10:[address] ciaran mcmanus needed. Performed By: #### C BCDF #### [address] [place] [address] HCT Canceled Normal [facility] Comment on above: Order Comment: TEST CBC AND DIFFERENTIAL WAS CANCELLED, 05/12/2022 10:[address] ciaran mcmanus needed. Performed By: #### C BCDF #### [address] [place] [address] HGB Canceled Normal [facility] Comment on above: Order Comment: TEST CBC AND DIFFERENTIAL WAS CANCELLED, 05/12/2022 10:[address] ciaran mcmanus needed. Performed By: #### C BCDF #### [address] [place] [address] LYMPHOCYTE Canceled Normal [facility] Comment on above: Order Comment: TEST CBC AND DIFFERENTIAL WAS CANCELLED, 05/12/2022 10:[address] ciaran mcmanus needed. Performed By: #### C BCDF #### [address] [place] [address] MCHC Canceled Normal [facility] Comment on above: Order Comment: TEST CBC AND DIFFERENTIAL WAS CANCELLED, 05/12/2022 10:[address] ciaran mcmanus needed. Performed By: #### C BCDF #### [address] [place] [address] MCV Canceled Normal [facility] Comment on above: Order Comment: TEST CBC AND DIFFERENTIAL WAS CANCELLED, 05/12/2022 10:[address] ciaran mcmanus needed. Performed By: #### C BCDF #### [address] [place] [address] MONOCYTE Canceled [facility] Comment on above: Order Comment: TEST CBC AND DIFFERENTIAL WAS CANCELLED, 05/12/2022 10:[address] ciaran mcmanus needed. Performed By: #### C BCDF #### [address] [place] [address] NEUTROPHIL Canceled Normal [facility] Comment on above: Order Comment: TEST CBC AND DIFFERENTIAL WAS CANCELLED, 05/12/2022 10:[address] ciaran mcmanus needed. Performed By: #### C BCDF #### [address] [place] [address] PLT Canceled Normal [facility] Comment on above: Order Comment: TEST CBC AND DIFFERENTIAL WAS CANCELLED, 05/12/2022 10:[address] ciaran mcmanus needed. Performed By: #### C BCDF #### [address] [place] [address] RBC Canceled Normal [facility] Comment on above: Order Comment: TEST CBC AND DIFFERENTIAL WAS CANCELLED, 05/12/2022 10:[address] ciaran mcmanus needed. Performed By: #### C BCDF #### [address] [place] [address] RDW-CV Canceled Normal [facility] Comment on above: Order Comment: TEST CBC AND DIFFERENTIAL WAS CANCELLED, 05/12/2022 10:[address] ciaran mcmanus needed. Performed By: #### C BCDF #### [address] [place] [address] WBC Canceled Normal [facility] Comment on above: Order Comment: TEST CBC AND DIFFERENTIAL WAS CANCELLED, 05/12/2022 10:[address] ciaran mcmanus needed. Performed By: #### C BCDF #### [address] [place] [address] COMPREHENSIVE PANELon 2021 ALBUMIN Canceled [facility] Comment on above: Order Comment: TEST COMPREHENSIVE PANEL WAS CANCELLED, 05/12/2022 10:[address] ciaran mcmanus needed. Performed By: #### C MP #### [address] [place] [address] ALKALINE PHOSPHATASE Canceled Normal [facility] Comment on above: Order Comment: TEST COMPREHENSIVE PANEL WAS CANCELLED, 05/12/2022 10:[address] ciaran mcmanus needed. Performed By: #### C MP #### [address] [place] [address] ALT Canceled Normal [facility] Comment on above: Order Comment: TEST COMPREHENSIVE PANEL WAS CANCELLED, 05/12/2022 10:[address] ciaran mcmanus needed. Result Comment: Kanwal ents treated with Sulfasalazine may generate falsely decreased results for ALT. Performed By: #### C MP #### [address] [place] [address] ANION GAP Canceled Normal [facility] Comment on above: Order Comment: TEST COMPREHENSIVE PANEL WAS CANCELLED, 05/12/2022 10:[address] ciaran mcmanus needed. Performed By: #### C MP #### [address] [place] [address] AST Canceled Normal [facility] Comment on above: Order Comment: TEST COMPREHENSIVE PANEL WAS CANCELLED, 05/12/2022 10:[address] ciaran mcmanus needed. Performed By: #### C MP #### [address] [place] [address] BICARBONATE Canceled Normal [facility] Comment on above: Order Comment: TEST COMPREHENSIVE PANEL WAS CANCELLED, 05/12/2022 10:[address] ciaran mcmanus needed. Performed By: #### C MP #### [address] [place] [address] BILIRUBIN,TOTAL Canceled Normal [facility] Comment on above: Order Comment: TEST COMPREHENSIVE PANEL WAS CANCELLED, 05/12/2022 10:24 per dr ciaran mcmanus needed. Performed By: #### C MP #### [address] [place] [address] CALCIUM Canceled Normal [facility] Comment on above: Order Comment: TEST COMPREHENSIVE PANEL WAS CANCELLED, 05/12/2022 10:[address] ciaran mcmanus needed. Performed By: #### C MP #### [address] [place] [address] CHLORIDE Canceled [facility] Comment on above: Order Comment: TEST COMPREHENSIVE PANEL WAS CANCELLED, 05/12/2022 10:[address] ciaran mcmanus needed. Performed By: #### C MP #### [address] [place] [address] CREATININE Canceled [facility] [place] Comment on above: Order Comment: TEST COMPREHENSIVE PANEL WAS CANCELLED, 05/12/2022 10:[address] ciaran mcmanus needed. Performed By: #### C MP #### [address] [place] [address] eGFR FEMALE Canceled [facility] [place] Comment on above: Order Comment: TEST COMPREHENSIVE PANEL WAS CANCELLED, 05/12/2022 10:[address] ciaran mmcanus needed. Result Comment: CALC ULATIONS OF ESTIMATED GFR ARE PERFORMED USING THE 2020 CKD-EPI STUDY REFIT EQUATION WITHOUT THE RACE VARIABLE FOR THE IDMS-TRACEABLE CREATININE METHODS. https://jasn.asnjournals.org/content/earlyASN.025 8394221 Performed By: #### C MP #### [address] [place] [address] eGFR MALE Canceled [facility] [place] Comment on above: Order Comment: TEST COMPREHENSIVE PANEL WAS CANCELLED, 05/12/2022 10:[address] ciaran mcmanus needed. Result Comment: CALC ULATIONS OF ESTIMATED GFR ARE PERFORMED USING THE 2020 CKD-EPI STUDY REFIT EQUATION WITHOUT THE RACE VARIABLE FOR THE IDMS-TRACEABLE CREATININE METHODS. https://jasn.asnjournals.org/content/earlyASN.268 6722142 Performed By: #### C MP #### [address] [place] [address] GLUCOSE Canceled [facility] [place] Comment on above: Order Comment: TEST COMPREHENSIVE PANEL WAS CANCELLED, 05/12/2022 10:[address] ciaran mcmanus needed. Performed By: #### C MP #### [address] [place] [address] POTASSIUM Canceled Normal [facility] Comment on above: Order Comment: TEST COMPREHENSIVE PANEL WAS CANCELLED, 05/12/2022 10:[address] ciaran mcmanus needed. Performed By: #### C MP #### [address] [place] [address] SODIUM Canceled Normal [facility] Comment on above: Order Comment: TEST COMPREHENSIVE PANEL WAS CANCELLED, 05/12/2022 10:[address] ciaran mcmanus needed. Performed By: #### C MP #### [address] [place] [address] TOTAL PROTEIN Canceled Normal [facility] Comment on above: Order Comment: TEST COMPREHENSIVE PANEL WAS CANCELLED, 05/12/2022 10:[address] ciaran mcmanus needed. Performed By: #### C MP #### [address] [place] [address] UREA NITROGEN Canceled Normal [facility] Comment on above: Order Comment: TEST COMPREHENSIVE PANEL WAS CANCELLED, 05/12/2022 10:[address] ciaran mcmanus needed. Performed By: #### C MP #### [address] [place] [address] Clinic Note - Heme Onc-Follo w Up Visiton 05-12-2022 Clinic Note - Heme Onc-Follow Up Visit Patient Visit Information: Visit Type: Follow Up Visit History of Present Illness: ID Statement: YUSEF CAR is a 72 year old Male Chief Complaint: Duodenal neuroendocrine tumor Interval History: 71 years old gentleman from [place], [place] who has been referred to me from [facility]. The patient complained of acid reflux [...] Weights & Heights: Date: Weight/Scale Type:Height: 26-Aug-2021 13:53404 kg / standing foxzl973.8 cm 20-May-2021 12:93877 kg / standing .8 cm 04-Feb-2021 09:16349 kg / standing mvgse083.8 cm Physical Exam: Constitutional: Appears well and [...] 26-Aug-2021 1 (more content not included)... Normal [facility] Clinic Note - Intakeon 05-12 Clinic Note [...] 3 Weights & HeightsDate: Weight/Scale Type:Height: 26-Aug-2021 13:07043 kg / standing ifvhw078.8 cm 20-May-2021 12:04081 kg / standing gddwo060.8 cm SpO2 (%)94 % SpO2 Patient Onroom [...] 12-May-2022 09:56 by Kindra Maher (PCNA) Normal [facility] GLUCOSE-POCTon 04-29-2022 Glucose [Mass/Vol] 139 mg/dL High 74 - 99 [facility] Comment on above: Performed By: #### G MARIXA #### [facility] [address] [facility] [place] [address] Laboratory - Chemistry and C hemistry - challengeon 04-29-2022 Glucose [Mass/Vol] 139 mg/dL above high threshold 74 - 99 [facility] Work Phone: No Panel Informationon 04-29 [facility] Work Phone: [email or web address] =[email or web address] [facility] Work Phone: [facility] Work Phone: Order Reconciliationon 04-29 Order [...] 1 tab(s) orally once a day Normal [facility] Surgical Pathology Depar tmenton 04-29-2022 [facility] Surgical Pathology Department Name YUSEF CAR Pathologist: DU LGUO Date of Procedure: 04/29/2022 Date Received: 04/29/2022 Date Reported 05/05/2022 Submitting Physician: JEREMIAH MAGAÑA MD Location: [facility] Copy To/Referring/Attending: VANESSA STEELE MD Other External [...] reviewed this case. Diagnostic interpretation performed at [facility] [address] [facility] [place] [address] Clinical History: Follow up history of duodenal [...] positive and negative controls which stained appropriately. [facility] Department of Pathology [address] [place] [address] Normal [facility] Comment on above: Performed By: #### U [facility] #### [facility] Surgical Pathology Department [address] [place] [address] Upper GI endoscopyon 04-29- 022 Upper GI endoscopy PATIENTNAME Patient Name: Yusef Car EXAMDATE Procedure Date: 04/29/2022 7:25 AM PATIENTID PATIENTACCOUNTNUM PATIENTDOB Date of : 1950 ADMITTYPE Admit Type: Outpatient PATIENTROOM Site: [facility] 1 ETHNICITY Ethnicity: Not or RACE Race: White PROVDR Attending MD: Jeremiah Magaña MD, [id number] ENDOPROCEDURENAME Procedure: Upper GI endoscopy INDICATION Indications: [...] (Doctor), Martha Kyle RN (Nurse), Moi Huff, Psychology Physician EDREFPROVIDER Referring: Vanessa Steele CURRENT_MEDS Medicines: See [...] diet. 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 All rights reserved. The codes documented in this report are preliminary and upon costing manager review may be revised to meet current compliance requirements. ATTDRPART Attending Participa (more content not included)... Normal [facility] General/Metabolic - Estabroxannes olga lidia 12-05-2021 General/Metabolic - Established Patient [...] history, the 84 gene Multi-Cancer Panel from [employer] was recommended and ordered. - I called [...] no significant history of cancer and/or Ashkenazi Spiritism ancestry on their mother's side, no genetic [...] since our discussion today. Lulu Calle MS, [facility] Licensed Genetic Counselor [place] [employer] [phone]. Chief Complaint Patient seen for discussion of [...] 01/08/2021 2:21:14 PM Lisinopril TABS Recorded By: Neleima Brock; 01/08/2021 2:21:14 PM Current Meds Medication [...] Dec 05 2021 3:54PM EST (Review) Normal [facility] Office Visit (Genetics)on Follow-up visit Patient Discussion/Summary [...] 84-gene Multi-Cancer + RNA analysis panel from [employer]. Our discussion is summarized below. We reviewed [...] affected individuals), and endocrine tumors of the effsly-qzmdym-haxzmfmerr (GEP) tract. 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 Normal [facility] Clinic Note - Heme Onc-Follo w Up Visiton 08-26-2021 Clinic Note - Heme Onc-Follow Up Visit Patient Visit Information: Visit Type: Follow Up Visit History of Present Illness: ID Statement: Mr. Car is a 71 year old male Chief Complaint: Duodenal neuroendocrine tumor Interval History: 71 years old gentleman from [place], [place] who has been referred to me from [facility]. The patient complained of acid reflux [...] Weights & Heights: Date: Weight/Scale Type:Height: 26-Aug-2021 13:86114 kg / standing bgyqp461.8 cm 20-May-2021 12:98713 kg / standing .8 cm 04-Feb-2021 09:86543 kg / standing oflkq334.8 cm Physical Exam: Constitutional: Appears well and [...] 13 Complet (more content not included)... Normal [facility] Clinic Note - Intakeon 08-26 Clinic Note - Intake Patient Visit Information: Visit TypeFollow Up Visit Source of Informationpatient Accompanied byspouse Admission Information: Admission Since Last VisitYes [facility] of [facility] Admission [id number] Admission Reason/Detailssepsis and removal of gall bladder [...] 3 Weights & HeightsDate: Weight/Scale Type:Height: 20-May-2021 12:16283 kg / standing .8 cm 04-Feb-2021 09:10053 kg / standing fmumq090.8 cm 07-Jan-2021 13:41347 kg / standing nilrx156.8 cm SpO2 (%)95 % SpO2 Patient Onroom [...] 26-Aug-2021 13:50 by Latanya Bhat (PCNA) Normal [facility] CULTURE BLOODon 06-09-2021 Microscopic examination of blood, [...] F Trimethoprim/Sulfamethoxa zole <=20 S F Normal [facility] Comment on above: Performed By: #### C NICOLE #### [facility] [address] [place] [address] Dr. Freda [facility] CBC AUTO DIFFon 06-06-2021 BASO # 0.0 103/ul Normal 0.0-0.1 [facility] Comment on above: Performed By: #### P OCGLUC #### [facility] [address] [address] José Luis Kisha Basophils/100 WBC (Bld) 0.1 % Critically low 0.2-2.0 [facility] Comment on above: Performed By: #### P OCGLUC #### [facility] [address] [place] [address] José Luis Kisha EO # 0.0 103/ul Normal 0.0-0.7 [facility] Comment on above: Performed By: #### P OCGLUC #### [facility] [address] [place] [address] José Luis Kisha Eosinophils/100 WBC (Bld) 0.0 % Critically low 0.9-7.0 [facility] Comment on above: Performed By: #### P OCGLUC #### [facility] [address] [place] [address] José Luis Beard Erythrocyte distribution width (RBC) [Ratio] 15.1 % Critically high 11.0-15.0 [facility] Comment on above: Performed By: #### P OCGLUC #### [facility] [address] [place] [address] José Luis Beard Hematocrit (Bld) [Volume fraction] 34.7 % Critically low 42.0-54.0 [facility] Comment on above: Performed By: #### P OCGLUC #### [facility] [address] [place] [address] José Luis Kisha Hemoglobin (Bld) [Mass/Vol] 10.9 g/dL Critically low 14.0-18.0 [facility] Comment on above: Performed By: #### P OCGLUC #### [facility] [address] [place] [address] José Luis Kisha IG # 0.04 10e3/ul Critically high 0.00-0.03 [facility] Comment on above: Performed By: #### P OCGLUC #### [facility] [address] [place] [address] José Luis Beard IG % 0.4 % Normal 0.0-0.5 [facility] Comment on above: Performed By: #### P OCGLUC #### [facility] [address] [place] [address] José Luis Beard LYMPH # 0.5 103/ul Critically low 1.2-3.8 [facility] Comment on above: Performed By: #### P OCGLUC #### [facility] [address] [place] [address] José Luis Beard Lymphocytes/100 WBC (Bld) 5.5 % Critically low 20.5-60.0 [facility] Comment on above: Performed By: #### P OCGLUC #### [facility] [address] [place] [address] José Luis Beard MANUAL DIFF REQ NO Normal [facility] Comment on above: Performed By: #### P OCGLUC #### [facility] [address] [place] [address] José Luis Beard MCH (RBC) [Entitic mass] 28.2 pg Normal 25.9-34.0 [facility] Comment on above: Performed By: #### P OCGLUC #### [facility] [address] [place] [address] José Luis Beard MCHC (RBC) [Mass/Vol] 31.4 g/dL Normal 29.9-35.2 [facility] Comment on above: Performed By: #### P OCGLUC #### [facility] [address] [place] [address] José Luis Beard MCV (RBC) [Entitic vol] 89.9 fL Normal 80.0-94.0 [facility] Comment on above: Performed By: #### P OCGLUC #### [facility] [address] [place] [address] José Luisdinh Beard MONO # 0.9 103/ul Critically high 0.3-0.8 [facility] Comment on above: Performed By: #### P OCGLUC #### [facility] [address] [place] [address] José Luis Beard Monocytes/100 WBC (Bld) 9.4 % Normal 1.7-12.0 [facility] Comment on above: Performed By: #### P OCGLUC #### [facility] [address] [place], [place] [id number] José Luis Beard NEUT # 8.1 103/ul Critically high 1.4-6.5 [facility] Comment on above: Performed By: #### P OCGLUC #### [facility] [address] [place], [place] [id number] José Luis Beard Neutrophils/100 WBC (Bld) 84.6 % Critically high 43.0-75.0 [facility] Comment on above: Performed By: #### P OCGLUC #### [facility] [address] [place], [place] [id number] José Luis Beard Platelet mean volume (Bld) [Entitic vol] 10.5 fL Normal 9.5-13.5 [facility] Comment on above: Performed By: #### P OCGLUC #### [facility] [address] [place] [address] José Luis Beard PLT 263 103/ul Normal 150-450 [facility] Comment on above: Performed By: #### P OCGLUC #### [facility] [address] [place], [place] [id number] José Luis Beard RBC 3.86 106/ul Critically low 4.70-6.10 [facility] Comment on above: Performed By: #### P OCGLUC #### [facility] [address] [place], [place] [address] José Luis Beard WBC 9.6 103/ul Normal 4.0-11.0 [facility] Comment on above: Performed By: #### P OCGLUC #### [facility] [address] [place], [place] [id number] José Luis Beard CULTURE BLOODon 06-06-2021 Microscopic examination of blood, culture Culture Observations: NO GROWTH AT 5 DAYS. Normal [facility] Comment on above: Performed By: #### C BCMAN #### [facility] [address] [place], [place] [id number] Dr. Freda [facility] POINT OF CARE GLUCOSEon 05-16 Glucose [Mass/Vol] 192 mg/dL Critically high 74-106 [facility] Comment on above: Performed By: #### P OCGLUC #### [facility] [address] [address] [address] Freda [facility] PROF 14(COMP METB)on 021 Albumin [Mass/Vol] 2.6 g/dL Critically low 3.5-5.0 [facility] Comment on above: Performed By: #### P OCGLUC #### [facility] [address] [place], [place] [id number] José Luis Kisha Albumin/Globulin [Mass ratio] 0.7 {ratio} Normal [facility] Comment on above: Performed By: #### P OCGLUC #### [facility] [address] [place] [address] José Luis Kisha ALP [Catalytic activity/Vol] 233 U/L Critically high 38-126 [facility] Comment on above: Performed By: #### P OCGLUC #### [facility] [address] [place] [address] José Luis Kisha ALT [Catalytic activity/Vol] 103 U/L Critically high 21-72 [facility] Comment on above: Performed By: #### P OCGLUC #### [facility] [address] [place] [address] José Luis Kisha Anion gap [Moles/Vol] 12.2 mmol/L Normal [facility] Comment on above: Performed By: #### P OCGLUC #### [facility] [address] [place] [address] José Luis Kisha AST [Catalytic activity/Vol] 44 U/L Normal 17-59 [facility] Comment on above: Performed By: #### P OCGLUC #### [facility] [address] [place] [address] José Luis Kisha Bilirubin [Mass/Vol] 0.4 mg/dL Normal 0.2-1.3 [facility] Comment on above: Performed By: #### P OCGLUC #### [facility] [address] [place], [place] [address] José Luis Kisha Calcium [Mass/Vol] 9.0 mg/dL Normal 8.4-10.2 [facility] Comment on above: Performed By: #### P OCGLUC #### [facility] [address] [place] [address] José Luis Kisha Chloride [Moles/Vol] 102 mmol/L Normal 98-107 [facility] Comment on above: Performed By: #### P OCGLUC #### [facility] [address] [address] José Luis Kisha CO2 [Moles/Vol] 26.9 mmol/L Normal 22.0-30.0 [facility] Comment on above: Performed By: #### P OCGLUC #### [facility] [address] [place] [address] José Luis Kisha Creatinine [Mass/Vol] 1.22 mg/dL Normal 0.66-1.25 [facility] Comment on above: Performed By: #### P OCGLUC #### [facility] [address] [place] [address] José Luis Kisha EGFR-AF MEXICAN >60 Normal >=60 [facility] Comment on above: Performed By: #### P OCGLUC #### [facility] [address] [place] [address] José Luis Kisha EGFR-NON AF MEXICAN 58 mL/min/1.73m2 Critically low >=60 [facility] Comment on above: Performed By: #### P OCGLUC #### [facility] [address] [address] José Luis Kisha Globulin (S) [Mass/Vol] 3.6 g/dL Normal [facility] Comment on above: Performed By: #### P OCGLUC #### [facility] [address] [place] [address] José Luis Kisha Glucose [Mass/Vol] 152 mg/dL Critically high 74-106 [facility] Comment on above: Performed By: #### P OCGLUC #### [facility] [address] [place] [address] José Luis Kisha Potassium [Moles/Vol] 4.1 mmol/L Normal 3.4-5.0 [facility] Comment on above: Performed By: #### P OCGLUC #### [facility] [address] [address] José Luis Kisha Protein [Mass/Vol] 6.2 g/dL Normal 6.1-8.2 [facility] Comment on above: Performed By: #### P OCGLUC #### [facility] [address] [place] [address] José Luis Kisha Sodium [Moles/Vol] 137 mmol/L Normal 137-145 [facility] Comment on above: Performed By: #### P OCGLUC #### [facility] [address] [place] [address] José Luis Kisha Urea nitrogen [Mass/Vol] 12.0 mg/dL Normal 9.0-20.0 [facility] Comment on above: Performed By: #### P OCGLUC #### [facility] [address] [place] [address] José Luis Kisha Urea nitrogen/Creatinine [Mass ratio] 9.8 mg/mg Normal [facility] Comment on above: Performed By: #### P OCGLUC #### [facility] [address] [place] [address] José Luis Mathuren CBC AUTO DIFFon 06-05-2021 BASO # 0.0 103/ul Normal 0.0-0.1 [facility] Comment on above: Performed By: #### P OCGLUC #### [facility] [address] [place] [address] Dr. Freda [facility] Basophils/100 WBC (Bld) 0.2 % Normal 0.2-2.0 [facility] Comment on above: Performed By: #### P OCGLUC #### [facility] [address] [place] [address] Dr. Freda [facility] EO # 0.0 103/ul Normal 0.0-0.7 [facility] Comment on above: Performed By: #### P OCGLUC #### [facility] [address] [place] [address] Dr. Freda [facility] Eosinophils/100 WBC (Bld) 0.4 % Critically low 0.9-7.0 [facility] Comment on above: Performed By: #### P OCGLUC #### [facility] [address] [place] [address] Dr. Freda [facility] Erythrocyte distribution width (RBC) [Ratio] 15.4 % Critically high 11.0-15.0 [facility] Comment on above: Performed By: #### P OCGLUC #### [facility] [address] [place] [address] Dr. Freda [facility] Hematocrit (Bld) [Volume fraction] 35.5 % Critically low 42.0-54.0 [facility] Comment on above: Performed By: #### P OCGLUC #### [facility] [address] [place] [address] Dr. Freda [facility] Hemoglobin (Bld) [Mass/Vol] 11.5 g/dL Critically low 14.0-18.0 [facility] Comment on above: Performed By: #### P OCGLUC #### [facility] [address] [place] [address] Dr. Freda [facility] IG # 0.04 10e3/ul Critically high 0.00-0.03 [facility] Comment on above: Performed By: #### P OCGLUC #### [facility] [address] [place] [address] Dr. Freda [facility] IG % 0.4 % Normal 0.0-0.5 [facility] Comment on above: Performed By: #### P OCGLUC #### [facility] [address] [place] [address] Dr. Freda [facility] LYMPH # 0.7 103/ul Critically low 1.2-3.8 [facility] Comment on above: Performed By: #### P OCGLUC #### [facility] [address] [place] [address] Dr. Freda [facility] Lymphocytes/100 WBC (Bld) 7.4 % Critically low 20.5-60.0 [facility] Comment on above: Performed By: #### P OCGLUC #### [facility] [address] [place] [address] Dr. Freda [facility] MANUAL DIFF REQ NO Normal [facility] Comment on above: Performed By: #### P OCGLUC #### [facility] [address] [place] [address] Dr. Freda [facility] MCH (RBC) [Entitic mass] 28.8 pg Normal 25.9-34.0 [facility] Comment on above: Performed By: #### P OCGLUC #### [facility] [address] [place] [address] Dr. Freda [facility] MCHC (RBC) [Mass/Vol] 32.4 g/dL Normal 29.9-35.2 [facility] Comment on above: Performed By: #### P OCGLUC #### [facility] [address] [place] [address] Dr. Freda Wayne MCV (RBC) [Entitic vol] 89.0 fL Normal 80.0-94.0 [facility] Comment on above: Performed By: #### P OCGLUC #### [facility] [address] [place] [address] Dr. Freda Wayne MONO # 1.1 103/ul Critically high 0.3-0.8 [facility] Comment on above: Performed By: #### P OCGLUC #### [facility] [address] [place] [address] Dr. Freda Wayne Monocytes/100 WBC (Bld) 10.5 % Normal 1.7-12.0 [facility] Comment on above: Performed By: #### P OCGLUC #### [facility] [address] [place] [address] Dr. Freda Wayne NEUT # 8.2 103/ul Critically high 1.4-6.5 [facility] Comment on above: Performed By: #### P OCGLUC #### [facility] [address] [place] [address] Dr. Freda Wayne Neutrophils/100 WBC (Bld) 81.1 % Critically high 43.0-75.0 [facility] Comment on above: Performed By: #### P OCGLUC #### [facility] [address] [place] [address] Dr. Freda Wayne Platelet mean volume (Bld) [Entitic vol] 10.4 fL Normal 9.5-13.5 [facility] Comment on above: Performed By: #### P OCGLUC #### [facility] [address] [address] [address] Freda Wayne PLT 262 103/ul Normal 150-450 [facility] Comment on above: Performed By: #### P OCGLUC #### [facility] [address] [address] [address] Freda Wayne RBC 3.99 106/ul Critically low 4.70-6.10 [facility] Comment on above: Performed By: #### P OCGLUC #### [facility] [address] [address] [address] Freda Wayne WBC 10.1 103/ul Normal 4.0-11.0 [facility] Comment on above: Performed By: #### P OCGLUC #### [facility] [address] [place] [address] Dr. Freda Wayne POINT OF CARE GLUCOSEon 05-16 Glucose [Mass/Vol] 208 mg/dL Critically high 74-106 [facility] Comment on above: Performed By: #### P OCGLUC #### [facility] [address] [place] [address] Dr. Freda Wayne Glucose [Mass/Vol] 188 mg/dL Critically high 74-106 [facility] Comment on above: Performed By: #### P OCGLUC #### [facility] [address] [address] [address] Freda Wayne Glucose [Mass/Vol] 143 mg/dL Critically high 74-106 [facility] Comment on above: Performed By: #### P OCGLUC #### [facility] [address] [place] [address] José Luis Beard PROF 14(COMP METB)on 021 Albumin [Mass/Vol] 2.8 g/dL Critically low 3.5-5.0 [facility] Comment on above: Performed By: #### P OCGLUC #### [facility] [address] [place] [address] José Luis Kisha Albumin/Globulin [Mass ratio] 0.8 {ratio} Normal [facility] Comment on above: Performed By: #### P OCGLUC #### [facility] [address] [address] José Luis Kisha ALP [Catalytic activity/Vol] 126 U/L Normal 38-126 [facility] Comment on above: Performed By: #### P OCGLUC #### [facility] [address] [address] José Luis Kisha ALT [Catalytic activity/Vol] 109 U/L Critically high 21-72 [facility] Comment on above: Performed By: #### P OCGLUC #### [facility] [address] [place] [address] José Luis Kisha Anion gap [Moles/Vol] 14.4 mmol/L Normal Th [facility] Comment on above: Performed By: #### P OCGLUC #### [facility] [address] [place] [address] José Luis Kisha AST [Catalytic activity/Vol] 42 U/L Normal 17-59 [facility] Comment on above: Performed By: #### P OCGLUC #### [facility] [address] [place] [address] José Luis Kisha Bilirubin [Mass/Vol] 0.7 mg/dL Normal 0.2-1.3 The [facility] Comment on above: Performed By: #### P OCGLUC #### [facility] [address] [place] [address] José Luis Kisha Calcium [Mass/Vol] 8.7 mg/dL Normal 8.4-10.2 [facility] Comment on above: Performed By: #### P OCGLUC #### [facility] [address] [place] [address] José Luis Kisha Chloride [Moles/Vol] 100 mmol/L Normal 98-107 [facility] Comment on above: Performed By: #### P OCGLUC #### [facility] [address] [place] [address] José Luis Kisha CO2 [Moles/Vol] 26.1 mmol/L Normal 22.0-30.0 [facility] Comment on above: Performed By: #### P OCGLUC #### [facility] [address] [address] José Luis Kisha Creatinine [Mass/Vol] 1.23 mg/dL Normal 0.66-1.25 [facility] Comment on above: Performed By: #### P OCGLUC #### [facility] [address] [address] José Luis Kisha EGFR-AF MEXICAN >60 Normal >=60 [facility] Comment on above: Performed By: #### P OCGLUC #### [facility] [address] [address] José Luis Kisha EGFR-NON AF MEXICAN 58 mL/min/1.73m2 Critically low >=60 [facility] Comment on above: Performed By: #### P OCGLUC #### [facility] [address] [address] José Luis Kisha Globulin (S) [Mass/Vol] 3.5 g/dL Normal [facility] Comment on above: Performed By: #### P OCGLUC #### [facility] [address] [address] José Luis Kisha Glucose [Mass/Vol] 139 mg/dL Critically high 74-106 [facility] Comment on above: Performed By: #### P OCGLUC #### [facility] [address] [address] José Luis Kisha Potassium [Moles/Vol] 3.5 mmol/L Normal 3.4-5.0 [facility] Comment on above: Performed By: #### P OCGLUC #### [facility] [address] [address] José Luis Kisha Protein [Mass/Vol] 6.3 g/dL Normal 6.1-8.2 [facility] Comment on above: Performed By: #### P OCGLUC #### [facility] [address] [address] José Luis Kisha Sodium [Moles/Vol] 137 mmol/L Normal 137-145 [facility] Comment on above: Performed By: #### P OCGLUC #### [facility] [address] [place] [address] José Luis Beard Urea nitrogen [Mass/Vol] 12.0 mg/dL Normal 9.0-20.0 [facility] Comment on above: Performed By: #### P OCGLUC #### [facility] [address] [place] [address] José Luis Beard Urea nitrogen/Creatinine [Mass ratio] 9.8 mg/mg Normal The [facility] Comment on above: Performed By: #### P OCGLUC #### [facility] [address] [place] [address] José Luis Beard CBC W MANUAL DIFFon 06-04-20 ATYPICAL LYMPH # Normal [facility] Comment on above: Performed By: #### C BCMAN #### [facility] [address] [place] [address] Dr. Freda Wayne ATYPICAL LYMPH % Normal The [facility] Comment on above: Performed By: #### C BCMAN #### [facility] [address] [place] [address] Dr. Freda Wayne BAND # 0.3 103/ul Normal 0.0-0.3 [facility] Comment on above: Performed By: #### C BCMAN #### [facility] [address] [place] [address] Dr. Freda Wayne BAND % 3 % Normal 0-5 The [facility] Comment on above: Performed By: #### C BCMAN #### [facility] [address] [place] [address] Dr. Freda Wayne BASOM # 0.00 103/ul Normal 0.00-0.10 The [facility] Comment on above: Performed By: #### C BCMAN #### [facility] [address] [place] [address] Dr. Freda Wayne BASOM % 0.0 % Critically low 0.2-2.0 [facility] Comment on above: Performed By: #### C BCMAN #### [facility] [address] [place] [address] Dr. Freda Wayne BLAST # Normal The [facility] Comment on above: Performed By: #### C NICOLE #### [facility] [address] [address] [address] Freda Wayne BLAST % Normal [facility] Comment on above: Performed By: #### C NICOLE #### [facility] [address] [place] [address] Dr. Freda Wayne CORRECTED WBC Normal 4.0-11.0 [facility] Comment on above: Performed By: #### C NICOLE #### [facility] [address] [place] [address] Dr. Freda Wayne EOS # 0.00 103/ul Normal 0.00-0.70 [facility] Comment on above: Performed By: #### C NICOLE #### [facility] [address] [place] [address] Dr. Freda Wayne EOS% 0.0 % Critically low 0.9-7.0 [facility] Comment on above: Performed By: #### C NICOLE #### [facility] [address] [place] [address] Dr. Freda Wayne HCT 35.4 % Critically low 42.0-54.0 [facility] Comment on above: Performed By: #### C NICOLE #### [facility] [address] [place] [address] Dr. Freda Wayne HGB 11.3 g/dl Critically low 14.0-18.0 [facility] Comment on above: Performed By: #### C NICOLE #### [facility] [address] [place] [address] Dr. Freda Wayne LYMPHM # 0.65 103/ul Critically low 1.20-3.80 [facility] Comment on above: Performed By: #### C NICOLE #### [facility] [address] [place] [address] Dr. Freda Wayne LYMPHM% 6.0 % Critically low 20.5-60.0 [facility] Comment on above: Performed By: #### C NICOLE #### [facility] [address] [place] [address] Dr. Freda Wayne MCH 28.8 pg Normal 25.9-34.0 [facility] Comment on above: Performed By: #### C NICOLE #### [facility] [address] [place] [address] Dr. Freda Wayne MCHC 31.9 g/dl Normal 29.9-35.2 [facility] Comment on above: Performed By: #### C NICOLE #### [facility] [address] [place] [address] Dr. Freda Wayne MCV 90.3 fL Normal 80.0-94.0 [facility] Comment on above: Performed By: #### C BCJOE #### [facility] [address] [place] [address] Dr. Freda Wayne METAMYELOCYTE # Normal [facility] Comment on above: Performed By: #### C NICOLE #### [facility] [address] [place] [address] Dr. Freda Wayne METAMYELOCYTE % Normal [facility] Comment on above: Performed By: #### C NICOLE #### [facility] [address] [place] [address] Dr. Freda Wayne MONOM# 0.76 103/ul Normal 0.30-0.80 [facility] Comment on above: Performed By: #### C NICOLE #### [facility] [address] [place] [address] Dr. Freda Wayne MONOM% 7.0 % Normal 1.7-12.0 [facility] Comment on above: Performed By: #### C NICOLE #### [facility] [address] [place] [address] Dr. Freda Wayne MPV 10.2 fL Normal 9.5-13.5 [facility] Comment on above: Performed By: #### C BCMAN #### [facility] [address] [place] [address] Dr. Freda Wayne MYELOCYTE # Normal The [facility] Comment on above: Performed By: #### C NICOLE #### [facility] [address] [place] [address] Dr. Freda Wayne MYELOCYTE % Normal The [facility] Comment on above: Performed By: #### C NICOLE #### [facility] [address] [address] [address] Freda Wayne NRBC Normal [facility] Comment on above: Performed By: #### C NICOLE #### [facility] [address] [address] [address] Freda Wayne PLT 275 103/ul Normal 150-450 [facility] Comment on above: Performed By: #### C NICOLE #### [facility] [address] [address] [address] Freda Wayne RBC 3.92 106/ul Critically low 4.70-6.10 [facility] Comment on above: Performed By: #### C NICOLE #### [facility] [address] [place] [address] Dr. Freda Wayne RDW 15.5 % Critically high 11.0-15.0 [facility] Comment on above: Performed By: #### C NICOLE #### [facility] [address] [place] [address] Dr. Freda Wayne SEG # 9.16 103/ul Critically high 1.40-6.50 [facility] Comment on above: Performed By: #### C NICOLE #### [facility] [address] [place] [address] Dr. Freda Wayne SEG % 84.0 % Critically high 43.0-75.0 [facility] Comment on above: Performed By: #### C NICOLE #### [facility] [address] [place] [address] Dr. Freda Wayne WBC 10.9 103/ul Normal 4.0-11.0 [facility] Comment on above: Performed By: #### C NICOLE #### [facility] [address] [place] [address] Dr. Freda Wayne NM HEPATOBILIARY SCANon -2 NM HEPATOBILIARY SCAN EXAM: NM HEPATOBIL IARY [...] CINDI RYAN Date: 2021-06-04 00:06 Normal [facility] POINT OF CARE GLUCOSEon 05-16 Glucose [Mass/Vol] 219 mg/dL Critically high 74-106 [facility] Comment on above: Performed By: #### P OCGLUC #### [facility] [address] [place] [address] José Luis Beard Glucose [Mass/Vol] 134 mg/dL Critically high 74-106 [facility] Comment on above: Performed By: #### P OCGLUC #### [facility] [address] [place] [address] Dr. Freda Wayne Glucose [Mass/Vol] 196 mg/dL Critically high 74-106 [facility] Comment on above: Performed By: #### P OCGLUC #### [facility] [address] [place] [address] José Luis Beard PROF 14(COMP METB)on 021 Albumin [Mass/Vol] 2.8 g/dL Critically low 3.5-5.0 [facility] Comment on above: Performed By: #### C MP #### [facility] [address] [place] [address] Dr. Freda Wayne Albumin/Globulin [Mass ratio] 0.8 {ratio} [facility] Comment on above: Performed By: #### C MP #### [facility] [address] [place] [address] Dr. Freda Wayne ALP [Catalytic activity/Vol] 131 U/L Critically high 38-126 [facility] Comment on above: Performed By: #### C MP #### [facility] [address] [place] [address] Dr. Freda Wayne ALT [Catalytic activity/Vol] 153 U/L Critically high 21-72 [facility] Comment on above: Performed By: #### C MP #### [facility] [address] [address] [address] Freda Wayne Anion gap [Moles/Vol] 12.6 mmol/L Normal Th e [facility] Comment on above: Performed By: #### C MP #### [facility] [address] [address] [address] Freda Wayne AST [Catalytic activity/Vol] 79 U/L Critically high 17-59 [facility] Comment on above: Performed By: #### C MP #### [facility] [address] [place] [address] Dr. Freda Wayne Bilirubin [Mass/Vol] 0.7 mg/dL Normal 0.2-1.3 [facility] Comment on above: Performed By: #### C MP #### [facility] [address] [place] [address] Dr. Freda Wayne Calcium [Mass/Vol] 8.6 mg/dL Normal 8.4-10.2 [facility] Comment on above: Performed By: #### C MP #### [facility] [address] [place] [address] Dr. Freda Wayne Chloride [Moles/Vol] 104 mmol/L Normal 98-107 [facility] Comment on above: Performed By: #### C MP #### [facility] [address] [address] [address] Freda Wayne CO2 [Moles/Vol] 25.2 mmol/L Normal 22.0-30.0 [facility] Comment on above: Performed By: #### C MP #### [facility] [address] [place] [address] Dr. Freda Wayne Creatinine [Mass/Vol] 1.30 mg/dL Critically high 0.66-1.25 [facility] Comment on above: Performed By: #### C MP #### [facility] [address] [address] [address] Freda Wayne EGFR-AF MEXICAN >60 Normal >=60 [facility] Comment on above: Performed By: #### C MP #### [facility] [address] [address] [address] Freda Wayne EGFR-NON AF MEXICAN 54 mL/min/1.73m2 Critically low >=60 [facility] Comment on above: Performed By: #### C MP #### [facility] [address] [address] [address] Freda Wayne Globulin (S) [Mass/Vol] 3.3 g/dL Normal [facility] Comment on above: Performed By: #### C MP #### [facility] [address] [address] [address] Freda Wayne Glucose [Mass/Vol] 141 mg/dL Critically high 74-106 [facility] Comment on above: Performed By: #### C MP #### [facility] [address] [address] [address] Freda Wayne Potassium [Moles/Vol] 3.8 mmol/L Normal 3.4-5.0 [facility] Comment on above: Performed By: #### C MP #### [facility] [address] [address] [address] Freda Wayne Protein [Mass/Vol] 6.1 g/dL Normal 6.1-8.2 [facility] Comment on above: Performed By: #### C MP #### [facility] [address] [address] [address] Freda Wayne Sodium [Moles/Vol] 138 mmol/L Normal 137-145 [facility] Comment on above: Performed By: #### C MP #### [facility] [address] [address] [address] Freda Wayne Urea nitrogen [Mass/Vol] 13.0 mg/dL Normal 9.0-20.0 [facility] Comment on above: Performed By: #### C MP #### [facility] [address] [address] [address] Freda Wayne Urea nitrogen/Creatinine [Mass ratio] 10.0 mg/mg Normal [facility] Comment on above: Performed By: #### C MP #### [facility] [address] [address] [address] Freda Wayne BLOOD CULTURE ID PANELon A. baumannii Not detected [facility] Comment on above: Performed By: #### B TIAGO #### [facility] [address] [place] [address] Dr. Freda Wayne BCID CONTROLS PASSED [facility] Comment on above: Performed By: #### B TIAGO #### [facility] [address] [place] [address] Dr. Freda TATEDBTHD BLOOD CULTURE BOTTLE INFORMATION [facility] Comment on above: Performed By: #### B TIAGO #### [facility] [address] [place] [address] Dr. Freda Wayne BCIDHD1 ANTIMICROBIAL RESIST ANCE GENES [facility] Comment on above: Performed By: #### B TIAGO #### [facility] [address] [place] [address] Dr. Freda Wayne BCIDHD2 SEE BELOW [facility] Comment on above: Result Comment: KPC- carbapenem resistance gene, mecA- methecillin resistance gene, van A/B- vancomycin resistance gene Note: Antimicrobial resitance can occur via multiple mechanisms. A Not Detected result for the [employer] antomicrobial resistance gene assays does not indicate antimicrobial susceptibility. Subculturing is required for specis identificationand susceptibility testing of isolates. Performed By: #### B TIAGO #### [facility] [address] [place] [address] Dr. Freda Wayne BCIDHD3 Positive [facility] Comment on above: Performed By: #### B TIAGO #### [facility] [address] [place] [address] Dr. Freda TATEDHD4 Negative [facility] Comment on above: Performed By: #### B TIAGO #### [facility] [address] [place] [address] Dr. Freda Wayne BCIDHD5 YEAST [facility] Comment on above: Performed By: #### B TIAGO #### [facility] [address] [place] [address] Dr. Freda Wayne BCIDHD6 SEE BELOW Normal [facility] Comment on above: Result Comment: Note : All genus and species BCID [employer] results will be verified post subculturing via Maldi-Tof MS testing methodology. Performed By: #### B TIAGO #### [facility] [address] [place] [address] Dr. Freda Wayne Bottle Set: Set 1 Normal [facility] Comment on above: Performed By: #### B TIAGO #### [facility] [address] [place] [address] Dr. Freda Wayne Bottle: Aerobic Normal [facility] Comment on above: Performed By: #### B TIAGO #### [facility] [address] [place] [address] Dr. Freda Wayne Yarely albicans Not detected Normal [facility] Comment on above: Performed By: #### B TIAGO #### [facility] [address] [place] [address] Dr. Freda Wayne Yarely glabrata Not detected Normal [facility] Comment on above: Performed By: #### B TIAGO #### [facility] [address] [place] [address] Dr. Freda Wayne Yarely Krusei Not detected Normal [facility] Comment on above: Performed By: #### B TIAGO #### [facility] [address] [place] [address] Dr. Freda Wayne Yarely Parapsilosis Not detected Normal [facility] Comment on above: Performed By: #### B TIAGO #### [facility] [address] [place] [address] Dr. Freda Wayne Yarely Tropicalis Not detected Normal [facility] Comment on above: Performed By: #### B TIAGO #### [facility] [address] [place] [address] Dr. Freda Wayne E. Cloacae complex Not detected Normal [facility] Comment on above: Performed By: #### B TIAGO #### [facility] [address] [place] [address] Dr. Freda Wayne Enterobacteriaceae Detected Critically abnormal [facility] Comment on above: Performed By: #### B TIAGO #### [facility] [address] [place] [address] Dr. Freda Wayne Enterococcus Not detected Normal [facility] Comment on above: Performed By: #### B TIAGO #### [facility] [address] [place] [address] Dr. Freda Wayne Escheria coli Not detected Normal [facility] Comment on above: Performed By: #### B TIAGO #### [facility] [address] [place] [address] Dr. Freda Wayne K. oxytoca Not detected Normal [facility] Comment on above: Performed By: #### B TIAGO #### [facility] [address] [place] [address] Dr. Freda Wayne K. pneumoniae Detected Critically abnormal [facility] Comment on above: Performed By: #### B TIAGO #### [facility] [address] [place] [address] Dr. Freda Wayne KPC Resistant Gene Not detected Normal [facility] Comment on above: Performed By: #### B TIAGO #### [facility] [address] [place] [address] Dr. Freda Wayne List. monocytogenes Not detected Normal [facility] Comment on above: Performed By: #### B TIAGO #### [facility] [address] [place] [address] Dr. Freda Wayne mecA Resistant Gene Not Applicable Normal [facility] Comment on above: Performed By: #### B TIAGO #### [facility] [address] [place] [address] Dr. Freda Wayne Proteus Not detected Normal [facility] Comment on above: Performed By: #### B TIAGO #### [facility] [address] [place] [address] Dr. Freda Wayne Pseud. aeruginosa Not detected Normal [facility] Comment on above: Performed By: #### B TIAGO #### [facility] [address] [place] [address] Dr. Freda Wayne Seratia marcescens Not detected Normal [facility] Comment on above: Performed By: #### B TIAGO #### [facility] [address] [place] [address] Dr. Freda Wayne Site: left AC Normal [facility] Comment on above: Performed By: #### B TIAGO #### [facility] [address] [place] [address] Dr. Freda Wayne Staph. aureus Not detected Normal [facility] Comment on above: Performed By: #### B TIAGO #### [facility] [address] [place] [address] Dr. Freda Wayne Staphylococcus Not detected Normal [facility] Comment on above: Performed By: #### B TIAGO #### [facility] [address] [place] [address] Dr. Freda Wayne Strep. agalactiae Not detected Normal [facility] Comment on above: Performed By: #### B TIAGO #### [facility] [address] [place] [address] Dr. Freda Wayne Strep. pneumoniae Not detected Normal [facility] Comment on above: Performed By: #### B TIAGO #### [facility] [address] [place] [address] Dr. Freda Wayne Strep. pyogenes Not detected Normal [facility] Comment on above: Performed By: #### B TIAGO #### [facility] [address] [place] [address] Dr. Freda Wayne Streptococcus Not detected Normal [facility] Comment on above: Performed By: #### B TIAGO #### [facility] [address] [place] [address] Dr. Freda Wayne Genevieve/B Resist. Gene Not Applicable Normal [facility] Comment on above: Performed By: #### B TIAGO #### [facility] [address] [place] [address] Dr. Freda Wayne CBC W MANUAL DIFFon 06-03-20 21 ATYPICAL LYMPH # Normal [facility] Comment on above: Performed By: #### P OCGLUC #### [facility] [address] [place] [address] José Luis Beard ATYPICAL LYMPH % Normal [facility] Comment on above: Performed By: #### P OCGLUC #### [facility] [address] [place] [address] José Luis Kisha BAND # Normal 0.0-0.3 [facility] Comment on above: Performed By: #### P OCGLUC #### [facility] [address] [place] [address] José Luis Kisha BAND % Normal 0-5 [facility] Comment on above: Performed By: #### P OCGLUC #### [facility] [address] [place] [address] José Luis Kisha BASOM # 0.00 103/ul Normal 0.00-0.10 [facility] Comment on above: Performed By: #### P OCGLUC #### [facility] [address] [place] [address] José Luis Kisha BASOM % 0.0 % Critically low 0.2-2.0 [facility] Comment on above: Performed By: #### P OCGLUC #### [facility] [address] [place] [address] José Luis Kisha BLAST # Normal [facility] Comment on above: Performed By: #### P OCGLUC #### [facility] [address] [place] [address] José Luis Kisha BLAST % Normal [facility] Comment on above: Performed By: #### P OCGLUC #### [facility] [address] [place] [address] José Luis Kisha CORRECTED WBC Normal 4.0-11.0 [facility] Comment on above: Performed By: #### P OCGLUC #### [facility] [address] [place] [address] José Luis Kisha EOS # 0.00 103/ul Normal 0.00-0.70 [facility] Comment on above: Performed By: #### P OCGLUC #### [facility] [address] [place] [address] José Luis Kisha EOS% 0.0 % Critically low 0.9-7.0 [facility] Comment on above: Performed By: #### P OCGLUC #### [facility] [address] [address] José Luis Beard HCT 41.0 % Critically low 42.0-54.0 [facility] Comment on above: Performed By: #### P OCGLUC #### [facility] [address] [place] [address] José Luis Beard HGB 13.0 g/dl Critically low 14.0-18.0 [facility] Comment on above: Performed By: #### P OCGLUC #### [facility] [address] [address] José Luis Beard LYMPHM # 0.18 103/ul Critically low 1.20-3.80 [facility] Comment on above: Performed By: #### P OCGLUC #### [facility] [address] [place] [address] José Luis Beard LYMPHM% 1.0 % Critically low 20.5-60.0 [facility] Comment on above: Performed By: #### P OCGLUC #### [facility] [address] [place] [address] José Luis Beard MCH 28.6 pg Normal 25.9-34.0 [facility] Comment on above: Performed By: #### P OCGLUC #### [facility] [address] [place] [address] José Luis Beard MCHC 31.7 g/dl Normal 29.9-35.2 [facility] Comment on above: Performed By: #### P OCGLUC #### [facility] [address] [place] [address] José Luis Beard MCV 90.1 fL Normal 80.0-94.0 [facility] Comment on above: Performed By: #### P OCGLUC #### [facility] [address] [place] [address] José Luis Mathuren METAMYELOCYTE # Normal [facility] Comment on above: Performed By: #### P OCGLUC #### [facility] [address] [place] [address] José Luis Mathuren METAMYELOCYTE % Normal [facility] Comment on above: Performed By: #### P OCGLUC #### [facility] [address] [address] José Luis Beard MONOM# 0.55 103/ul Normal 0.30-0.80 [facility] Comment on above: Performed By: #### P OCGLUC #### [facility] [address] [place] [address] José Luis Beard MONOM% 3.0 % Normal 1.7-12.0 [facility] Comment on above: Performed By: #### P OCGLUC #### [facility] [address] [place] [address] José Luis Beard MPV 10.1 fL Normal 9.5-13.5 [facility] Comment on above: Performed By: #### P OCGLUC #### [facility] [address] [place] [address] José Luis Beard MYELOCYTE # Normal [facility] Comment on above: Performed By: #### P OCGLUC #### [facility] [address] [place] [address] José Luis Beard MYELOCYTE % Normal [facility] Comment on above: Performed By: #### P OCGLUC #### [facility] [address] [place] [address] José Luis Kisha NRBC Normal [facility] Comment on above: Performed By: #### P OCGLUC #### [facility] [address] [place] [address] José Luis Mathuren PLT 374 103/ul Normal 150-450 [facility] Comment on above: Performed By: #### P OCGLUC #### [facility] [address] [place] [address] José Luis Mathuren RBC 4.55 106/ul Critically low 4.70-6.10 [facility] Comment on above: Performed By: #### P OCGLUC #### [facility] [address] [place] [address] José Luis Beard RDW 15.6 % Critically high 11.0-15.0 The [facility] Comment on above: Performed By: #### P OCGLUC #### [facility] [address] [place] [address] José Luis Kisha SEG # 17.57 103/ul Critically high 1.40-6.50 [facility] Comment on above: Performed By: #### P OCGLUC #### [facility] [address], [place] [address] José Luis Beard SEG % 96.0 % Critically high 43.0-75.0 [facility] Comment on above: Performed By: #### P OCGLUC #### [facility] [address], [place] [address] José Luis Beard WBC 18.3 103/ul Critically high 4.0-11.0 [facility] Comment on above: Performed By: #### P OCGLUC #### [facility] [address], [place] [address] ABD/PELV W CONon [...] Date: 2021-06-03 14:15 Normal [facility] CULTURE BLOODon 06-03-2021 Microscopic examination of blood, culture Culture Observations: NO GROWTH AT 5 DAYS. Normal The [facility] Comment on above: Performed By: #### B LDCX2 #### [facility] [address], [place] [address] Dr. Freda Wayne [facility] SARS-CoV-2 (COVID-19) RNA SHRUTI+probe Ql (Unsp spec) Not detected Normal NOT DETECTED The [facility] Comment on above: Result Comment: When diagnostic testing is negative, the possibility of a false negative should be considered in the context of a patient's recent exposures and the presence of clinical signs and symptoms consistent with SARS-CoV-2. This test is not yet approved or cleared by the [place] Food and Drug Administration (FDA). This test was developed by [employer], [employer], [place]. The performance characteristics of this test were validated by The [facility]. The results are not intended to be used as the sole means for clinical diagnosis or patient management decisions. The [facility] is authorized under Clinical Laboratory [...] for this test is supported by the [place] of Health and Human Service's declaration that [...] By: #### C BCMAN #### [facility] [address], [place] [address] Dr. Freda Wayne ER URINE PROFILEon Bilirubin Ql (U) Negative Normal NEGATIVE The [facility] Comment on above: Performed By: #### P OCGLUC #### [facility] [address] [address] José Luis Kisha Clarity (U) CLEAR Normal CLEAR [facility] Comment on above: Performed By: #### P OCGLUC #### [facility] [address] [address] José Luis Kisha Color (U) YELLOW Normal YELLOW The [facility] Comment on above: Performed By: #### P OCGLUC #### [facility] [address] [address] José Luis Kisha ERUAHD A micrscopic examina tion will be performed if indicated. Normal [facility] Comment on above: Performed By: #### P OCGLUC #### [facility] [address] [place] [address] José Luis Kisha Glucose Ql (U) 100 mg/dl Abnormal NEGATIVE [facility] Comment on above: Performed By: #### P OCGLUC #### [facility] [address] [place] [address] José Luis Kisha Hemoglobin Ql (U) Negative Normal NEGATIVE [facility] Comment on above: Performed By: #### P OCGLUC #### [facility] [address] [place] [address] José Luis Kisha Ketones Ql (U) Negative Normal NEGATIVE [facility] Comment on above: Performed By: #### P OCGLUC #### [facility] [address] [place] [address] José Luis Kisha LEUKOCYTES Negative Normal NEGATIVE [facility] Comment on above: Performed By: #### P OCGLUC #### [facility] [address] [place] [address] José Luis Kisha Nitrite Ql (U) Negative Normal NEGATIVE [facility] Comment on above: Performed By: #### P OCGLUC #### [facility] [address] [place] [address] José Luis Kisha pH (U) 6.0 [pH] Normal 5-9 [facility] Comment on above: Performed By: #### P OCGLUC #### [facility] [address] [place], [place] [id number] José Luis Beard Protein (U) [Mass/Vol] 30 mg/dL Abnormal NEGAT CYNTHIA/ TRACE The [facility] Comment on above: Performed By: #### P OCGLUC #### [facility] [address] [place] [address] José Luis Beard SPEC GRAVITY 1.020 Normal 1.005-<=1. 025 [facility] Comment on above: Performed By: #### P OCGLUC #### [facility] [address] [place] [address] José Luis Beard UR MICRO IND INDICATED Normal [facility] Comment on above: Performed By: #### P OCGLUC #### [facility] [address] [place] [address] José Luis Beard Urobilinogen Qn (U) 1.0 {Bassem'U}/dL Normal 0.2 - 1. 0 The [facility] Comment on above: Performed By: #### P OCGLUC #### [facility] [address] [place] [address] José Luis Beard LACTATE/LACTIC ACIDon 2020 Lactate [Moles/Vol] 2.0 mmol/L Normal 0.7-2.0 [facility] Comment on above: Performed By: #### P OCGLUC #### [facility] [address] [place] [address] Dr. Freda Wayne LIPASEon 06-03-2021 Lipase [Catalytic activity/Vol] 207.0 U/L Normal 23.0-300.0 [facility] Comment on above: Performed By: #### P OCGLUC #### [facility] [address] [place] [address] Dr. Freda Wayne POINT OF CARE GLUCOSEon 05-16 Glucose [Mass/Vol] 107 mg/dL Critically high 74-106 T [facility] Comment on above: Performed By: #### P OCGLUC #### [facility] [address] [place] [address] José Luis Beard PROF 14(COMP METB)on Albumin [Mass/Vol] 3.9 g/dL Normal 3.5-5.0 [facility] Comment on above: Performed By: #### P OCGLUC #### [facility] [address] [address] [address] Freda Wayne Albumin/Globulin [Mass ratio] 1.1 {ratio} Normal [facility] Comment on above: Performed By: #### P OCGLUC #### [facility] [address] [address] [address] Freda Wayne ALP [Catalytic activity/Vol] 181 U/L Critically high 38-126 [facility] Comment on above: Performed By: #### P OCGLUC #### [facility] [address] [address] [address] Freda Wayne ALT [Catalytic activity/Vol] 196 U/L Critically high 21-72 [facility] Comment on above: Performed By: #### P OCGLUC #### [facility] [address] [address] [address] Freda Wayne Anion gap [Moles/Vol] 15.4 mmol/L Normal [facility] Comment on above: Performed By: #### P OCGLUC #### [facility] [address] [address] [address] Freda Wayne AST [Catalytic activity/Vol] 217 U/L Critically high 17-59 [facility] Comment on above: Performed By: #### P OCGLUC #### [facility] [address] [address] [address] Freda Wayne Bilirubin [Mass/Vol] 1.1 mg/dL Normal 0.2-1.3 [facility] Comment on above: Performed By: #### P OCGLUC #### [facility] [address] [address] [address] Freda Wayne Calcium [Mass/Vol] 9.7 mg/dL Normal 8.4-10.2 [facility] Comment on above: Performed By: #### P OCGLUC #### [facility] [address] [address] [address] Freda Wayne Chloride [Moles/Vol] 101 mmol/L Normal 98-107 [facility] Comment on above: Performed By: #### P OCGLUC #### [facility] [address] [address] [address] Freda Wayne CO2 [Moles/Vol] 24.4 mmol/L Normal 22.0-30.0 [facility] Comment on above: Performed By: #### P OCGLUC #### [facility] [address] [address] [address] Freda Wayne Creatinine [Mass/Vol] 1.16 mg/dL Normal 0.66-1.25 [facility] Comment on above: Performed By: #### P OCGLUC #### [facility] [address] [address] [address] Freda Wayne EGFR-AF MEXICAN >60 Normal >=60 [facility] Comment on above: Performed By: #### P OCGLUC #### [facility] [address] [address] [address] Freda Wayne EGFR-NON AF MEXICAN >60 Normal >=60 [facility] Comment on above: Performed By: #### P OCGLUC #### [facility] [address] [address] [address] Freda Wayne Globulin (S) [Mass/Vol] 3.6 g/dL Normal [facility] Comment on above: Performed By: #### P OCGLUC #### [facility] [address] [address] [address] Freda Wayne Glucose [Mass/Vol] 213 mg/dL Critically high 74-106 [facility] Comment on above: Performed By: #### P OCGLUC #### [facility] [address] [address] [address] Freda Wayne Potassium [Moles/Vol] 3.8 mmol/L Normal 3.4-5.0 [facility] Comment on above: Performed By: #### P OCGLUC #### [facility] [address] [address] [address] Freda Wayne Protein [Mass/Vol] 7.5 g/dL Normal 6.1-8.2 [facility] Comment on above: Performed By: #### P OCGLUC #### [facility] [address] [place] [address] Dr. Freda Wayne Sodium [Moles/Vol] 137 mmol/L Normal 137-145 [facility] Comment on above: Performed By: #### P OCGLUC #### [facility] [address] [place] [address] Dr. Freda Wayne Urea nitrogen [Mass/Vol] 16.0 mg/dL Normal 9.0-20.0 [facility] Comment on above: Performed By: #### P OCGLUC #### [facility] [address] [place] [address] Dr. Freda Wayne Urea nitrogen/Creatinine [Mass ratio] 13.8 mg/mg Normal [facility] Comment on above: Performed By: #### P OCGLUC #### [facility] [address] [place] [address] Dr. Freda Wayne PROTIMEon 06-03-2021 INR Coag (PPP) [Relative time] 1.05 {INR} Normal [facility] Comment on above: Performed By: #### P T, PTT #### [facility] [address] [place] [address] Dr. Freda Wayne INR GUIDELINES SEE BELOW Normal [facility] Comment on above: Result Comment: KAYLA RED INR: 2.0 - 3.0 CONDITIONS NOT LISTED BELOW 2.5 - 3.5 FOR PROSTHETIC HEART VALVE REPLACEMENT 2.5 - 3.5 RECURRENT THROMBOSIS Performed By: #### P T, PTT #### [facility] [address] [place] [address] Dr. Freda Wayne PT Coag (PPP) [Time] 11.3 s Normal 9.0-11.6 [facility] Comment on above: Performed By: #### P T, PTT #### [facility] [address] [place] [address] Dr. Freda Wayne PTTon 06-03-2021 aPTT Coag (Bld) [Time] 28.2 s Normal 22.3-36.2 Th [facility] Comment on above: Performed By: #### P T, PTT #### [facility] [address] [place] [address] Dr. Freda Wayne TROPONIN, HIGH SENSITIVITYon 06-03-2021 HSTROP 10.8 pg/mL Normal 4.0-42.2 [facility] Comment on above: Result Comment: CUT- OFF POINTS HAVE BEEN ESTABLISHED BASED ON THE FOURTH UNIVERSAL DEFINITIONS OF MYOCARDIAL INFARCTION. THE UPPER REFERENCE LIMIT (URL) OF TROPONIN, DEFINED THE 99TH PERCENTILE OF cTnI DISTRIBUTION IN A REFERENCE POPULATION, HAS BEEN CONFIRMED THE DECISION THRESHOLD FOR [place] DIAGNOSIS. Performed By: #### P OCGLUC #### [facility] [address] [place] [address] Dr. Freda Wayne URINE MICROSCOPIC ONLYon BACTERIA NONE SEEN Normal NONE SEEN The [facility] Comment on above: Performed By: #### P OCGLUC #### [facility] [address] [place] [address] José Luis Kisha Bacteria identified Cx Nom (U) NOT INDICATED Normal The [facility] Comment on above: Performed By: #### P OCGLUC #### [facility] [address] [place] [address] José Luis Kisha CAST NONE SEEN Normal NONE SEEN The [facility] Comment on above: Performed By: #### P OCGLUC #### [facility] [address] [place] [address] José Luis Kisha Crystals LM Nom (Urine sed) NONE SEEN Normal NONE SEEN The [facility] Comment on above: Performed By: #### P OCGLUC #### [facility] [address] [place] [address] José Luis Kisha Epithelial cells LM Ql (Urine sed) RARE Normal NONE SEEN /RARE The [facility] Comment on above: Performed By: #### P OCGLUC #### [facility] [address] [place] [address] José Luis Kisha MUCOUS TRACE Abnormal NONE SEEN The [facility] Comment on above: Performed By: #### P OCGLUC #### [facility] [address] [place] [address] José Luis Kisha RBC 0-2 Normal 0-2 The [facility] Comment on above: Performed By: #### P OCGLUC #### [facility] [address], [place] [address] José Luis Beard WBC 0-2 Abnormal NONE SEEN The [facility] Comment on above: Performed By: #### P OCGLUC #### [facility] [address], [place] [address] José Luis Beard US SINGLE QUAD RT [...] by: CINDI SOMMER Date: 2021-06-03 09:27 Normal [facility] XR CHEST 1 Von 06-03-2021 XR [...] by: CINDI SOMMER Date: 2021-06-03 09:56 Normal [facility] Clinic Note - Heme Onc Sched nahid 05-22-2021 Clinic Note - Heme Onc Scheduling Retrieve Patient Instructions: Patient Instructions: Patient Instructions: RetrievePatient Instructions COMMUNICATION ORDERS NOTES: Communication Orders NotesPer scheduling note on appointment wifes patient wants apt on 08/26 End of Visit Documentation: Clinic Location/Phone Number: Clinic Location/Phone Number: [address] [address] End Of Visit MU Report Item: Visit Summary given or mailed to patientyes Mailed Appointments Electronic Signatures: Candice Shirley (PT ACCT REP) (Signed 22-May-2021 10:02) Authored: Retrieve Patient Instructions, COMMUNICATION ORDERS NOTES, End of Visit Documentation Last Updated: 22-May-2021 10:02 by Candice Shirley (PT ACCT REP) Normal [facility] Clinic Note - Heme Onc-Follo w Up Visiton 05-20-2021 Clinic Note - Heme Onc-Follow Up Visit Patient Visit Information: Visit Type: Follow Up Visit History of Present Illness: ID Statement: YUSEF CAR is a 71 year old Male Chief Complaint: Duodenal neuroendocrine tumor Interval History: 70 years old gentleman from [place], [place] who has been referred to me from [facility]. The patient complained of acid reflux [...] 6. No (more content not included)... Normal [facility] Clinic Note - Intakeon 05-20 Clinic Note [...] 3 Weights & HeightsDate: Weight/Scale Type:Height: 04-Feb-2021 09:58667 kg / standing lirmc190.8 cm 07-Jan-2021 13:74287 kg / standing kejzl172.8 cm 19-Dec-2020 13:97973 kg / standing vpblo682.8 cm SpO2 (%)98 % SpO2 Patient Onroom [...] 20-May-2021 12:55 by Edith Ruvalcaba (SARAH) Normal [facility] Laboratory - Chemistry and C hemistry - challengeon 05-01-2021 Glucose [Mass/Vol] 132 mg/dL above high threshold 74 - 99 [facility] [address] DO Work Phone: No Panel Informationon 05-01 [facility] [address] DO Work Phone: [email or web address]?={[email or web address] [id number]} [facility] [address] DO Work [...] make patient management decisions.Fact sheet for providers: https://www.fda.gov/media/270870/downloadFact sheet for patients: https://www.fda.gov/media/734697/downloadThis test has received FDA Emergency Use Authorization (EUA) and has been verified by [facility] ([facility]). This test is only authorized for the duration of time that circumstances exist to justify the authorization of the emergency use of in vitro diagnostic tests for the detection of SARS-CoV-2 virus and/or diagnosis of COVID-19 infection under section 564(b)(1) of the Act, 21 U.S.C. 360bbb-3(b)(1), unless the authorization is terminated or revoked sooner. [facility] is certified under CLIA-88 as qualified to perform high complexity testing. Testing is performed in the [facility] laboratories located at [address] [place] [address]. Provider Communicationon Provider Communication Dear Dr. Steele, [...] arise Sincerely, Irwin Cespedes MD, MBS Clinical Entry Level Truck Driver Advanced Therapeutic Endoscopy Gastroenterology [facility] [address] [place] [address] Patient Care Team Care Team MemberRoleSpecialtyOffice Abdiaziz Cedric HERNANDEZ, Vanessa [facility] Care ProviderWellstar [phone] Active Problems Problems BPH with obstruction/lower urinary [...] Feb 05 2021 2:42PM EST (Author) Normal [facility] - Chemistry and C hemistry - challengeon 01-23-2021 Glucose [Mass/Vol] 106 mg/dL above high threshold 74 - 99 [facility] Work Phone: No Panel Informationon 01-23 [facility] 450 DO Work Phone: [email or web address]?={F [id number] [id number]} [facility] [address] DO Work Phone: [facility] [address] DO Work Phone: Complete Blood Count + Diffe jimbo 01-11-2021 Basophils/100 WBC (Bld) 0.4 % 0.0 - 2.0 U [facility] Work Phone: Erythrocyte distribution width (RBC) [Ratio] 15.6 % above high threshold See Below [facility] Work Phone: Comment on above: Reference Range: 11. 5 - 14.5 Hematocrit (Bld) [Volume fraction] 40.9 % below low threshold See Below [facility] Work Phone: Comment on above: Reference Range: 41. 0 - 52.0 Hemoglobin (Bld) [Mass/Vol] 12.9 g/dL below low threshold See Below [facility] Work Phone: Comment on above: Reference Range: 13. 5 - 17.5 Lymphocytes/100 WBC (Bld) 16.1 % See Below [facility] Work Phone: Comment on above: Reference Range: 13. 0 - 44.0 MCHC (RBC) [Mass/Vol] 31.5 g/dL below low threshold See Below [facility] Work Phone: Comment on above: Reference Range: 32. 0 - 36.0 MCV (RBC) [Entitic vol] 92 fL 80 - 100 U [facility] Work Phone: Monocytes/100 WBC (Bld) 7.4 % 2.0 - 10.0 U [facility] Work Phone: Neutrophils/100 WBC (Bld) 73.8 % See Below [facility] Work Phone: Comment on above: Reference Range: 40. 0 - 80.0 Platelets (Bld) [#/Vol] 360 10*3/uL 150 - 450 [facility] Work Phone: RBC (Bld) [#/Vol] 4.45 {x10E12/L} below low threshold See Below [facility] Work Phone: Comment on above: Reference Range: 4.5 0 - 5.90 WBC (Bld) [#/Vol] 7.7 10*3/uL 4.4 - 11.3 [facility] Work Phone: Complete Blood Count + Differential 0.03 {x10E9/L} See Below [facility] Work Phone: Comment on above: Reference Range: 0.0 0 - 0.10 Complete Blood Count + Differential 0.15 {x10E9/L} See Below [facility] Work Phone: Comment on above: Reference Range: 0.0 0 - 0.40 Complete Blood Count + Differential 0.57 {x10E9/L} See Below [facility] Work Phone: Comment on above: Reference Range: 0.0 5 - 0.80 Complete Blood Count + Differential 1.24 {x10E9/L} See Below [facility] Work Phone: Comment on above: Reference Range: 0.8 0 - 3.00 Complete Blood Count + Differential 5.68 {x10E9/L} above high threshold See Below [facility] Work Phone: Comment on above: Reference Range: 1.6 0 - 5.50 Complete Blood Count + Differential 2.0 % 0.0 - 6.0 [facility] Work Phone: Complete Blood Count + Differential 0.3 % 0.0 - 0.9 [facility] Work Phone: Comment on above: Immature Granulocyte Count (IG) includes promyelocytes, myelocytes and metamyelocytes but does not include bands. Percent differential counts (%) should be interpreted in the context of the absolute cell counts (cells/L). Laboratory - Chemistry and C hemistry - challengeon 01-11-2021 Albumin BCP dye [Mass/Vol] 4.1 g/dL 3.4 - 5.0 [facility] Work Phone: [phone] ALP [Catalytic activity/Vol] 82 U/L 33 - 136 [facility] Work Phone: [phone] ALT With P-5'-P [Catalytic activity/Vol] 12 U/L 10 - [address] [facility] Work Phone: [phone] Comment on above: Patients treated wit h Sulfasalazine may generate falsely decreased results for ALT. Anion gap [Moles/Vol] 12 mmol/L 10 - 20 [facility] Work Phone: [phone] AST With P-5'-P [Catalytic activity/Vol] 12 U/L 9 - [address] [facility] Work Phone: [phone] Bilirubin [Mass/Vol] 0.5 mg/dL 0.0 - 1.2 [facility] Work Phone: [phone] Calcium [Mass/Vol] 9.8 mg/dL 8.6 - 10.3 [facility] Work Phone: [phone] Chloride [Moles/Vol] 103 mmol/L 98 - 107 [facility] Work Phone: [phone] CO2 [Moles/Vol] 30 mmol/L 21 - 32 [facility] Work Phone: [phone] Creatinine [Mass/Vol] 1.20 mg/dL See Below [facility] Work Phone: [phone] Comment on above: Reference Range: 0.5 0 - 1.30 Glucose [Mass/Vol] 147 mg/dL above high threshold 74 - 99 [facility] Work Phone: [phone] Potassium [Moles/Vol] 4.5 mmol/L 3.5 - 5.3 [facility] Work Phone: [phone] Protein [Mass/Vol] 7.0 g/dL 6.4 - 8.2 [facility] Work Phone: [phone] Sodium [Moles/Vol] 140 mmol/L 136 - 145 [facility] Work Phone: [phone] Urea nitrogen [Mass/Vol] 19 mg/dL 6 - 23 [facility] Work Phone: MRI Liver w/wo Contraston MR Liver WO and W contrast IV Normal [facility] Work Phone: No Panel Informationon 01-11 73 {mL/min/1.73m2} >60 [facility] Work Phone: Comment on above: CALCULATIONS OF LACEY MATED GFR ARE PERFORMED USING THE MDRD STUDY EQUATION FOR THE IDMS-TRACEABLE CREATININE METHODS. CLIN CHEM 2007;53:766-72 60 {mL/min/1.73m2} Abnormal >60 [facility] Work Phone: Prostate Specific Antigenon 01-11-2021 Prostate specific Ag [Mass/Vol] 0.29 ng/mL See Below [facility] Work Phone: Comment on above: Reference Range: 0.0 0 - 4.00The FDA requires that the method used for PSA assay be reported to the physician. Values obtained with different assay methods must not be used interchangeably. This test was performed at [facility] using the [employer] PSA method, which is a sandwich immunoassay using chemiluminescence for quantitation. The assay is approvedfor measurement of prostate-specific antigen (PSA) in serum and may be used in conjunction with a digital rectalexamination in men 50 years and older as an aid in detection of prostate cancer. 2-Kddfw-xpwfvhyat inhibitors (e.g. Proscar, Finasteride, Avodart, Dutasteride and [...] visit. 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 He underwent EGD on 11/28/2020 at the [facility] in [facility] for a longstanding history of gastroesophageal reflux [...] Calcium 10 MG Oral Tablet Results/Data Gastrin, [id number] 08:49AMNon Ambulatory, Provider Ordering Provider: NEFTALI KNOWLES [id number] Test NameResultFlagReference Gastrin, Serum21 pg/mL0-100 Performed By: [employer] [address] [place] [id number] Tentering Machine Feeder: Katharine Vergara MD CT Abdomen and Pelvis with IV [id number] 05:35PMNon Ambulatory, Provider Ordering Provider: NEFTALI KNOWLES [id number] Abdomen and Pelvis with Contrast(Report) FINAL [...] for staging purposes. COMPARISON: None. ACCESSION NUMBER(S): [id number] ORDERING CLINICIAN: NEFTALI KNOWLES TECHNIQUE: CT of [...] is n (more content not included)... 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,N13.8) Orders SocHx: Non-smoker Tobacco Use Screening; Status:Complete; Done: [id number] Perform:Not Applicable;Ordered; For:SocHx: Non-smoker; Ordered By:Neelima Brock; [...] Tablet Vitals Vital Signs Recorded: 08Jan2021 02:15PM Uqxjxnlidih99.5 F Heart Rate76 Yfacusli798 Uixlbxdls07 Height5 ft 10 in Damtsf849 lb BMI Fwlsbjdzmx68.87 kg/m2 BSA Calculated2.27 Tobacco Useb) No Fall [...] Results/Data CT Abdomen and Pelvis with IV [id number] 05:35PMNon Ambulatory, Provider Ordering Provider: NEFTALI KNOWLES [id number] Abdomen and Pelvis with Contrast(Report) FINAL REPORT Interpreted by: LUL CARVER H, MD and SWATI GARCIA MD - RAD RESIDENT 12/26/20:29 Patient Name: YUSEF CAR STUDY: CT ABDOMEN AND PELVIS W IV CONTRAST; 12/25/2020 5:35 pm INDICATION: net restaging. 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 Images were obtained for st (more content not included)... Normal [facility] Tobacco Screening.on Fall risk assessment a) No falls within the last year -[facility] Work Phone: Tobacco use status CPHS b) No [facility] Work Phone: Complete Blood Count + Diffe rentialon 12-26-2020 Hematocrit (Bld) [Volume fraction] Canceled [facility] Work Phone: Hemoglobin (Bld) [Mass/Vol] Canceled [facility] Work Phone: Platelets (Bld) [#/Vol] Canceled [facility] Work Phone: RBC (Bld) [#/Vol] Canceled -Surg [facility] Work Phone: Complete Blood Count + Differential Canceled [facility] Work Phone: Comment on above: [...] 12-26-2020 Gastrin [Mass/Vol] 21 pg/mL 0-100 [facility] Work Phone: Comment on above: Performed By: MARISSA clarke[address] [address]Nfxjniugrb Director: Katharine Vergara MD Laboratory - Chemistry and C hemistry - challengeon 12-26-2020 Albumin BCP dye [Mass/Vol] Canceled -[facility] Work Phone: [phone] ALP [Catalytic activity/Vol] Canceled [facility] Work Phone: [phone] ALT With P-5'-P [Catalytic activity/Vol] Canceled -Surg [facility] Work Phone: [phone] Comment on above: Patients treated wit h Sulfasalazine may generate falsely decreased results for ALT. AST With P-5'-P [Catalytic activity/Vol] Canceled MG-Surg [facility] Work Phone: [phone] Bilirubin [Mass/Vol] Canceled [facility] Work Phone: [phone] Calcium [Mass/Vol] Canceled -[facility] Work Phone: [phone] Chloride [Moles/Vol] Canceled [facility] Work Phone: [phone] CO2 [Moles/Vol] Canceled -Surger [facility] Work Phone: [phone] Creatinine [Mass/Vol] Canceled - [facility] Work Phone: [phone] Glucose [Mass/Vol] Canceled -[facility] Work Phone: [phone] Potassium [Moles/Vol] Canceled [facility] Work Phone: [phone] Protein [Mass/Vol] Canceled [facility] Work Phone: [phone] Sodium [Moles/Vol] Canceled [facility] Work Phone: [phone] Urea nitrogen [Mass/Vol] Canceled -[facility] Work Phone: [phone] Abdomen and Pelvis with I V Contraston 12-25-2020 CT Abdomen and Pelvis W contrast IV Normal [facility] Work Phone: Complete Blood Count + Alva choi 12-25-2020 Basophils/100 WBC (Bld) 0.2 % 0.0 - 2.0 [facility] Work Phone: [phone] Erythrocyte distribution width (RBC) [Ratio] 15.7 % above high threshold See Below [facility] Work Phone: [phone] Comment on above: Reference Range: 11. 5 - 14.5 Hematocrit (Bld) [Volume fraction] 40.2 % below low threshold See Below [facility] Work Phone: [phone] Comment on above: Reference Range: 41. 0 - 52.0 Hemoglobin (Bld) [Mass/Vol] 13.0 g/dL below low threshold See Below [facility] Work Phone: [phone] Comment on above: Reference Range: 13. 5 - 17.5 Lymphocytes/100 WBC (Bld) 14.4 % See Below [facility] Work Phone: [phone] Comment on above: Reference Range: 13. 0 - 44.0 MCHC (RBC) [Mass/Vol] 32.3 g/dL See Below [facility] Work Phone: [phone] Comment on above: Reference Range: 32. 0 - 36.0 MCV (RBC) [Entitic vol] 89 fL 80 - 100 [facility] Work Phone: [phone] Monocytes/100 WBC (Bld) 7.5 % 2.0 - 10.0 [facility] Work Phone: [phone] Neutrophils/100 WBC (Bld) 76.9 % See Below [facility] Work Phone: [phone] Comment on above: Reference Range: 40. 0 - 80.0 Platelets (Bld) [#/Vol] 401 10*3/uL 150 - 450 [facility] Work Phone: [phone] RBC (Bld) [#/Vol] 4.50 {x10E12/L} See Below [facility] Work Phone: [phone] Comment on above: Reference Range: 4.5 0 - 5.90 WBC (Bld) [#/Vol] 11.4 10*3/uL above high threshold 4.4 - 11.3 [facility] Work Phone: [phone] Complete Blood Count + Differential 0.02 {x10E9/L} See Below [facility] Work Phone: [phone] Comment on above: Reference Range: 0.0 0 - 0.10 Complete Blood Count + Differential 0.08 {x10E9/L} See Below [facility] Work Phone: [phone] Comment on above: Reference Range: 0.0 0 - 0.40 Complete Blood Count + Differential 0.86 {x10E9/L} above high threshold See Below [facility] Work Phone: [phone] Comment on above: Reference Range: 0.0 5 - 0.80 Complete Blood Count + Differential 1.65 {x10E9/L} See Below [facility] Work Phone: [phone] Comment on above: Reference Range: 0.8 0 - 3.00 Complete Blood Count + Differential 8.78 {x10E9/L} above high threshold See Below [facility] Work Phone: [phone] Comment on above: Reference Range: 1.6 0 - 5.50 Complete Blood Count + Differential 0.7 % 0.0 - 6.0 [facility] Work Phone: [phone] Complete Blood Count + Differential 0.3 % 0.0 - 0.9 [facility] Work Phone: [phone] Comment on above: Immature Granulocyte Count (IG) includes promyelocytes, myelocytes and metamyelocytes but does not include bands. Percent differential counts (%) should be interpreted in the context of the absolute cell counts (cells/L). Gastrin, Serumon 12-25-2020 Gastrin [Mass/Vol] Canceled [facility] Work Phone: [phone] Laboratory - Chemistry and C hemistry - challengeon 12-25-2020 Albumin BCP dye [Mass/Vol] 4.3 g/dL 3.4 - 5.0 [facility] Work Phone: [phone] ALP [Catalytic activity/Vol] 88 U/L 33 - 136 -[facility] Work Phone: [phone] ALT With P-5'-P [Catalytic activity/Vol] 11 U/L 10 - 52 [facility] Work Phone: [phone] Comment on above: Patients treated wit h Sulfasalazine may generate falsely decreased results for ALT. Anion gap [Moles/Vol] 15 mmol/L 10 - 20 [facility] Work Phone: [phone] AST With P-5'-P [Catalytic activity/Vol] 12 U/L 9 - 39 MG-Surg [facility] Work Phone: [phone] Bilirubin [Mass/Vol] 0.4 mg/dL 0.0 - 1.2 [facility] Work Phone: [phone] Calcium [Mass/Vol] 9.8 mg/dL 8.6 - 10.3 [facility] Work Phone: [phone] Chloride [Moles/Vol] 104 mmol/L 98 - 107 [facility] Work Phone: [phone] CO2 [Moles/Vol] 23 mmol/L 21 - 32 MG-Surger [facility] Work Phone: [phone] Creatinine [Mass/Vol] 1.15 mg/dL See Below [facility] Work Phone: [phone] Comment on above: Reference Range: 0.5 0 - 1.30 Glucose [Mass/Vol] 101 mg/dL above high threshold 74 - 99 [facility] Work Phone: Potassium [Moles/Vol] 4.3 mmol/L 3.5 - 5.3 [facility] Work Phone: Protein [Mass/Vol] 7.5 g/dL 6.4 - 8.2 [facility] Work Phone: Sodium [Moles/Vol] 138 mmol/L 136 - 145 [facility] Work Phone: Urea nitrogen [Mass/Vol] 30 mg/dL above h igh threshold 6 - 23 [facility] Work Phone: No Panel Informationon 12-25 >60 >60 [facility] Work Phone: Comment on above: CALCULATIONS OF LACEY MATED GFR ARE PERFORMED USING THE MDRD STUDY EQUATION FOR THE IDMS-TRACEABLE CREATININE METHODS. 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 He will be undergoing serum gastrin level testing as well as cross-sectional imaging. I will obtain his EGD report from [facility]. It is currently unclear to [...] Duodenal well-differentiated neuroendocrine tumor History of Present Euftvsh86-ljen-gmj man referred to me from Dr. Johansen for duodenal well-differentiated neuroendocrine tumor. He underwent EGD on 11/28/2020 at the [facility] in [facility] for a longstanding history of gastroesophageal reflux [...] UREASE Negative Normal NEGATIVE The [facility] Comment on above: Performed By: #### P OCGLUC #### [facility] Laboratory [id number] Freda Wayne POINT OF CARE GLUCOSEon 11-13 Glucose [Mass/Vol] 129 mg/dL Critically high 74-106 T [facility] Comment on above: Performed By: #### P OCGLUC #### [facility] [address] [id number] José Luis Beard Covid-19 PCR (CVDTBH)on 11-13 SARS-CoV-2 (COVID-19) RNA SHRUTI+probe Ql (Unsp spec) Not detected Normal NOT DETECTED The [facility] Comment on above: Result Comment: This test is not yet approved or cleared by the [place] FDA. When there are no FDA-approved or cleared tests available, and other criteria are met, FDA can make tests available under an emergency access mechanism called an Emergency Use Authorization (EUA). The EUA for this test is supported by the Casting Machine Operator of Health and Human Service's (HHS's) declaration [...] consistent with SARS-CoV-2. Performed By: #### C [facility] #### [facility] [facility] [address] [place] [address] Dr. Freda [facility] [place] HEPATOBILIARY SCAN W [...] MARCELLO LEE Date: 2020-06-18 10:24 Normal [facility] Vital Signs Date Time Vital Sign Value Performing Clinician Padma loja 03-13-2025 09:03-0400 Body height 177.8 cm Tomeka GALLOWAY Work Phone: [facility] 03-13-2025 09:03-0400 Body mass index (BMI) [Ratio] 33.5 kg/m2 Tomeka GALLOWAY Work Phone: [facility] 03-13-2025 09:03-0400 Body temperature 97.5 [degF] Tomeka Leeroyhholz MAINTAINABILITY ENGINEER-C Work Phone: [facility] 03-13-2025 09:03-0400 Body weight 105.85 kg Tomeka Aichholz MAINTAINABILITY ENGINEER-C Work Phone: [facility] 03-13-2025 09:03-0400 Diastolic blood pressure 72 mm[Hg] Tomeka Aichholz MAINTAINABILITY ENGINEER-C Work Phone: [facility] 03-13-2025 09:03-0400 Heart rate 36 /min Tomeka Aichholz MAINTAINABILITY ENGINEER-C Work Phone: [facility] 03-13-2025 09:03-0400 Respiratory rate 18 /min Tomeka Aichholz MAINTAINABILITY ENGINEER-C Work Phone: [facility] 03-13-2025 09:03-0400 SaO2% (BldA) [Mass fraction] 96 % Tomeka Aichholz MAINTAINABILITY ENGINEER-C Work Phone: [facility] 03-13-2025 09:03-0400 Systolic blood pressure 144 mm[Hg] Tomeka Aichholz MAINTAINABILITY ENGINEER-C Work Phone: [facility] 01-09-2025 08:33-0400 Body mass index (BMI) [Ratio] 33.2 kg/m2 Tomeka Aichholz MAINTAINABILITY ENGINEER Work Phone: [facility] 01-09-2025 08:33-0400 Body temperature 98.49 [degF] Tomeka Aichholz MAINTAINABILITY ENGINEER Work Phone: [facility] 01-09-2025 08:33-0400 Body weight 104.96 kg Tomeka Aichholz MAINTAINABILITY ENGINEER Work Phone: [facility] 01-09-2025 08:33-0400 Diastolic blood pressure 80 mm[Hg] Tomeka Aichholz MAINTAINABILITY ENGINEER Work Phone: [facility] 01-09-2025 08:33-0400 Heart rate 68 /min Tomeka Marvinholz MAINTAINABILITY ENGINEER Work Phone: [facility] 01-09-2025 08:33-0400 Respiratory rate 18 /min Tomeka Aichholz MAINTAINABILITY ENGINEER Work Phone: [facility] 01-09-2025 08:33-0400 SaO2% (BldA) [Mass fraction] 96 % Tomeka Aichholz MAINTAINABILITY ENGINEER Work Phone: [facility] 01-09-2025 08:33-0400 Systolic blood pressure 160 mm[Hg] Tomeka Aichholz MAINTAINABILITY ENGINEER Work Phone: [facility] 12-13-2024 14:05-0400 Body mass index (BMI) [Ratio] 32.4 kg/m2 Tomeka Aichholz MAINTAINABILITY ENGINEER Work Phone: [facility] 12-13-2024 14:05-0400 Body temperature 98.49 [degF] Tomeka Leeroyhholz MAINTAINABILITY ENGINEER Work Phone: [facility] 12-13-2024 14:05-0400 Body weight 102.42 kg Tomeka Aichholz MAINTAINABILITY ENGINEER Work Phone: [facility] 12-13-2024 14:05-0400 Diastolic blood pressure 62 mm[Hg] Tomeka Aichholz MAINTAINABILITY ENGINEER Work Phone: [facility] 12-13-2024 14:05-0400 Heart rate 24 /min Tomeka Aichholz MAINTAINABILITY ENGINEER Work Phone: [facility] 12-13-2024 14:05-0400 Respiratory rate 18 /min Tomeka Aichholz MAINTAINABILITY ENGINEER Work Phone: [facility] 12-13-2024 14:05-0400 SaO2% (BldA) [Mass fraction] 95 % Tomeka Aichholz MAINTAINABILITY ENGINEER Work Phone: [facility] 12-13-2024 14:05-0400 Systolic blood pressure 100 mm[Hg] Tomeka Aichholz MAINTAINABILITY ENGINEER Work Phone: [facility] 11-28-2024 13:58-0400 Body mass index (BMI) [Ratio] 32.46 kg/m2 Tomeka Marvinholz MAINTAINABILITY ENGINEER Work Phone: [facility] 11-28-2024 13:58-0400 Body temperature 98.49 [degF] Tomeka Leeroyhholz MAINTAINABILITY ENGINEER Work Phone: [facility] 11-28-2024 13:58-0400 Body weight 102.6 kg Tomeka Leeroyhholz MAINTAINABILITY ENGINEER Work Phone: [facility] 11-28-2024 13:58-0400 Diastolic blood pressure 74 mm[Hg] Tomeka Aichholz MAINTAINABILITY ENGINEER Work Phone: [facility] 11-28-2024 13:58-0400 Heart rate 71 /min Tomeka Leeroykushalholz MAINTAINABILITY ENGINEER Work Phone: [facility] 11-28-2024 13:58-0400 Respiratory rate 18 /min Tomeka Marvinholz MAINTAINABILITY ENGINEER Work Phone: [facility] 11-28-2024 13:58-0400 SaO2% (BldA) [Mass fraction] 96 % Tomeka Leeroyhholz MAINTAINABILITY ENGINEER Work Phone: [facility] 11-28-2024 13:58-0400 Systolic blood pressure 118 mm[Hg] Tomeka Marvinholz MAINTAINABILITY ENGINEER Work Phone: [facility] 10-10-2024 08:41-0400 Body mass index (BMI) [Ratio] 33.12 kg/m2 Tomeka Leeroyhholz MAINTAINABILITY ENGINEER Work Phone: [facility] 10-10-2024 08:41-0400 Body temperature 97.81 [degF] Tomeka Aichholz MAINTAINABILITY ENGINEER Work Phone: [facility] 10-10-2024 08:41-0400 Body weight 104.69 kg Tomeka Leeroyhholz MAINTAINABILITY ENGINEER Work Phone: [facility] 10-10-2024 08:41-0400 Diastolic blood pressure 80 mm[Hg] Tomeka Aichholz MAINTAINABILITY ENGINEER Work Phone: [facility] 10-10-2024 08:41-0400 Heart rate 56 /min Tomeka Stricklandz MAINTAINABILITY ENGINEER Work Phone: [facility] 10-10-2024 08:41-0400 Respiratory rate 18 /min Tomeka Wongholz MAINTAINABILITY ENGINEER Work Phone: [facility] 10-10-2024 08:41-0400 SaO2% (BldA) [Mass fraction] 98 % Tomeka Rosado MAINTAINABILITY ENGINEER Work Phone: [facility] 10-10-2024 08:41-0400 Systolic blood pressure 110 mm[Hg] Tomeka Wongholz MAINTAINABILITY ENGINEER Work Phone: [facility] 07-13-2024 08:29-0500 Body height 177.8 cm Miriam Gatica MAINTAINABILITY ENGINEER Work Phone: [facility] 07-13-2024 08:29-0500 Body mass index (BMI) [Ratio] 34.09 kg/m2 Miriam Gatica MAINTAINABILITY ENGINEER Work Phone: [facility] 07-13-2024 08:29-0500 Body temperature 98.8 [degF] Miriam Gatica MAINTAINABILITY ENGINEER Work Phone: [facility] 07-13-2024 08:29-0500 Body weight 107.78 kg Miriam Gatica MAINTAINABILITY ENGINEER Work Phone: [facility] 07-13-2024 08:29-0500 Diastolic blood pressure 88 mm[Hg] Miriam Gatica MAINTAINABILITY ENGINEER Work Phone: [facility] 07-13-2024 08:29-0500 Heart rate 74 /min Miriam Gatica MAINTAINABILITY ENGINEER Work Phone: [facility] 07-13-2024 08:29-0500 Respiratory rate 22 /min Miriam Gatica MAINTAINABILITY ENGINEER Work Phone: [facility] 07-13-2024 08:29-0500 SaO2% (BldA) [Mass fraction] 96 % Miriam Gatica MAINTAINABILITY ENGINEER Work Phone: [facility] 07-13-2024 08:29-0500 Systolic blood pressure 140 mm[Hg] Miriam Gatica MAINTAINABILITY ENGINEER Work Phone: [facility] 06-30-2024 11:11-0500 Body temperature 97.5 [degF] Jeremiah Magaña MD Work Phone: [facility] 06-30-2024 11:11-0500 Diastolic blood pressure 65 mm[Hg] Jeremiah Magaña MD Work Phone: [facility] 06-30-2024 11:11-0500 Heart rate 79 /min Jeremiah Magaña MD Work Phone: [facility] 06-30-2024 11:11-0500 Respiratory rate 18 /min Jeremiah Magaña MD Work Phone: [facility] 06-30-2024 11:11-0500 SaO2% (BldA) [Mass fraction] 95 % Jeremiah Magaña MD Work Phone: [facility] 06-30-2024 11:11-0500 Systolic blood pressure 121 mm[Hg] Jeremiah Magaña MD Work Phone: [facility] 06-30-2024 09:33-0500 Body height 177.8 cm Jeremiah Magaña MD Work Phone: [facility] 06-30-2024 09:33-0500 Body mass index (BMI) [Ratio] 33 kg/m2 Jeremiah Magaña MD Work Phone: [facility] 06-30-2024 09:33-0500 Body weight 104.33 kg Jeremiah Magaña MD Work Phone: [facility] 06-21-2024 09:29-0500 Body mass index (BMI) [Ratio] 33.96 kg/m2 Neftali Knowles MD Work Phone: [facility] 06-21-2024 09:29-0500 Body temperature 97.5 [degF] Neftali Knowles MD Work Phone: [facility] 06-21-2024 09:29-0500 Body weight 107.37 kg Neftali Knowles MD Work Phone: [facility] 06-21-2024 09:29-0500 Diastolic blood pressure 82 mm[Hg] Neftali Knowles MD Work Phone: [facility] 06-21-2024 09:29-0500 Heart rate 82 /min Neftali Knowles MD Work Phone: [facility] 06-21-2024 09:29-0500 Respiratory rate 18 /min Neftali Knowles MD Work Phone: [facility] 06-21-2024 09:29-0500 SaO2% (BldA) [Mass fraction] 94 % Neftali Knowles MD Work Phone: [facility] 06-21-2024 09:29-0500 Systolic blood pressure 131 mm[Hg] Neftali Knowles MD Work Phone: [facility] 04-13-2024 08:50-0400 Body height 177.8 cm Jenniffer RIBEIRO Work Phone: [facility] 04-13-2024 08:50-0400 Body mass index (BMI) [Ratio] 33.43 kg/m2 Jenniffer Sears PA Work Phone: [facility] 04-13-2024 08:50-0400 Body weight 105.69 kg Jenniffer Sears PA Work Phone: [facility] 04-12-2024 08:29-0400 Body height 177.8 cm Miriam Cardozopatrick MAINTAINABILITY ENGINEER Work Phone: [facility] 04-12-2024 08:29-0400 Body mass index (BMI) [Ratio] 33.89 kg/m2 Miriam Gatica MAINTAINABILITY ENGINEER Work Phone: [facility] 04-12-2024 08:29-0400 Body temperature 96.3 [degF] Miriam Laurazpatrick MAINTAINABILITY ENGINEER Work Phone: [facility] 04-12-2024 08:29-0400 Body weight 107.14 kg Miriam Cardozopatrick MAINTAINABILITY ENGINEER Work Phone: [facility] 04-12-2024 08:29-0400 Diastolic blood pressure 78 mm[Hg] Miriam Gatica MAINTAINABILITY ENGINEER Work Phone: [facility] 04-12-2024 08:29-0400 Heart rate 53 /min Miriam Gatica MAINTAINABILITY ENGINEER Work Phone: [facility] 04-12-2024 08:29-0400 Respiratory rate 16 /min Miriam Gatica MAINTAINABILITY ENGINEER Work Phone: [facility] 04-12-2024 08:29-0400 SaO2% (BldA) [Mass fraction] 95 % Miriam Gatica MAINTAINABILITY ENGINEER Work Phone: [facility] 04-12-2024 08:29-0400 Systolic blood pressure 130 mm[Hg] Miriam Gatica MAINTAINABILITY ENGINEER Work Phone: [facility] 12-29-2023 14:15-0400 Body temperature 96.8 [degF] Jeremiah Magaña MD Work Phone: [facility] 12-29-2023 14:15-0400 Diastolic blood pressure 79 mm[Hg] Jeremiah Magaña MD Work Phone: [facility] 12-29-2023 14:15-0400 Heart rate 64 /min Jeremiah Magaña MD Work Phone: [facility] 12-29-2023 14:15-0400 Respiratory rate 17 /min Jeremiah Magaña MD Work Phone: [facility] 12-29-2023 14:15-0400 SaO2% (BldA) [Mass fraction] 96 % Jeremiah Magaña MD Work Phone: [facility] 12-29-2023 14:15-0400 Systolic blood pressure 171 mm[Hg] Jeremiah Magaña MD Work Phone: [facility] 12-29-2023 13:08-0400 Body height 177.8 cm Jeremiah Magaña MD Work Phone: [facility] 12-29-2023 13:08-0400 Body mass index (BMI) [Ratio] 33 kg/m2 Jeremiah Magaña MD Work Phone: [facility] 12-29-2023 13:08-0400 Body weight 104.33 kg Jeremiah Magaña MD Work Phone: [facility] 10-07-2023 10:30-0400 Diastolic blood pressure 77 mm[Hg] Jeremiah Magaña MD Work Phone: [facility] 10-07-2023 10:30-0400 Heart rate 71 /min Jeremiah Magaña MD Work Phone: [facility] 10-07-2023 10:30-0400 Respiratory rate 16 /min Jeremiah Magaña MD Work Phone: [facility] 10-07-2023 10:30-0400 Systolic blood pressure 130 mm[Hg] Jeremiah Magaña MD Work Phone: [facility] 10-07-2023 09:45-0400 Body temperature 97.2 [degF] Jeremiah Magaña MD Work Phone: [facility] 10-07-2023 09:45-0400 SaO2% (BldA) [Mass fraction] 95 % Jeremiah Magaña MD Work Phone: [facility] 10-07-2023 06:39-0400 Body height 177.8 cm Jeremiah Magaña MD Work Phone: [facility] 10-07-2023 06:39-0400 Body mass index (BMI) [Ratio] 33 kg/m2 Jeremiah Magaña MD Work Phone: [facility] 10-07-2023 06:39-0400 Body weight 104.33 kg Jeremiah Magaña MD Work Phone: [facility] 06-10-2023 09:30-0500 Diastolic blood pressure 63 mm[Hg] Vic Mcrae MD Work Phone: [facility] 06-10-2023 09:30-0500 Heart rate 62 /min Vic Mcrae MD Work Phone: [facility] 06-10-2023 09:30-0500 Respiratory rate 18 /min Vic Mcrae MD Work Phone: [facility] 06-10-2023 09:30-0500 SaO2% (BldA) [Mass fraction] 96 % Vic Mcrae MD Work Phone: [facility] 06-10-2023 09:30-0500 Systolic blood pressure 138 mm[Hg] Vic Mcrae MD Work Phone: [facility] 06-10-2023 09:10-0500 Body temperature 97.9 [degF] Vic Mcrae MD Work Phone: [facility] 06-10-2023 07:28-0500 Body height 177.8 cm Vic Mcrae MD Work Phone: [facility] 06-10-2023 07:28-0500 Body mass index (BMI) [Ratio] 34.29 kg/m2 Vic Mcrae MD Work Phone: [facility] 06-10-2023 07:28-0500 Body weight 108.41 kg Vic Mcrae MD Work Phone: [facility] 01-08-2021 14:15-0400 Body height 177.8 cm Vanessa Steele Work Phone: [facility] Work Phone: 01-08-2021 14:15-0400 Body mass index (BMI) [Ratio] 34.87 kg/m2 Vanessa Steele Work Phone: [facility] Work Phone: 01-08-2021 14:15-0400 Body surface area Derived from formula 2.27 m2 Vanessa Steele Work Phone: [facility] Work Phone: 01-08-2021 14:15-0400 Body temperature 97.5 [degF] Vanessa Steele Work Phone: [facility] Work Phone: 01-08-2021 14:15-0400 Body weight 110.22 kg Vanessa Steele Work Phone: [facility] Work Phone: 01-08-2021 14:15-0400 Diastolic blood pressure 81 mm[Hg] Vanessa Steele Work Phone: [facility] Work Phone: 01-08-2021 14:15-0400 Heart rate 76 /min Vanessa Steele Work Phone: [facility]xijf[facility] Work Phone: 01-08-2021 14:15-0400 Systolic blood pressure 134 mm[Hg] Vanessa Steele Work Phone: [facility] Work Phone: Encounters Encounter Date Encounter Type Care Provider Facility Start: 03-13-2025 End: 03-13-2025 ambulatory Tomeka ROSAC Work Phone: [facility] Work Phone: Start: 03-13-2025 End: 03-13-2025 Patient encounter procedure Tomeka Rosado NP-[facility] -[facility] Work Phone: Start: 03-08-2025 Patient encounter procedure Tomeka Rosado MAINTAINABILITY ENGINEER-C Work Phone: [facility] Start: 02-14-2025 Non-patient / Non-visit Tomeka dominguez MAINTAINABILITY ENGINEER-C -[facility] [place] Work Phone: Start: 01-09-2025 End: 01-09-2025 Bamboo flowsheet Tomeka Rosado MAINTAINABILITY ENGINEER Work Phone: [facility] Start: 01-09-2025 End: 01-09-2025 Bamboo flowsheet Tomeka Rosado MAINTAINABILITY ENGINEER Work Phone: [facility] Start: 01-09-2025 End: 01-09-2025 Clinisync Result Encounter Tomeka Rosado NP Work Phone: [facility] External Department Unsolicited Start: 01-09-2025 End: 01-09-2025 Patient encounter procedure Tomeka Rosado MAINTAINABILITY ENGINEER Work Phone: [facility] Comment on above: Encounter for subseq uent annual wellness visit (AWV) in Medicare patient [...] ; Primary hypertension ; Left ankle swelling Start: 01-09-2025 End: 01-09-2025 ambulatory TOMEKA ROSADO Not Available Start: 12-13-2024 End: 12-13-2024 Bamboo flowsheet Tomeka Rosado MAINTAINABILITY ENGINEER Work Phone: [facility] Start: 12-13-2024 End: 12-13-2024 Bamboo flowsheet Tomeka Rosado MAINTAINABILITY ENGINEER Work Phone: [facility] Start: 12-13-2024 End: 12-13-2024 Office outpatient visit 25 minutes Tomeka Aichholz MAINTAINABILITY ENGINEER Work Phone: [facility] Comment on above: Bradycardia (Primary Dx); LLQ pain; Primary malignant neuroendocrine neoplasm of duodenum (HCC); Class 1 obesity due to excess calories with serious comorbidity in adult, unspecified BMI; Type 2 diabetes mellitus with stage 3a chronic kidney disease, without long-term current use of insulin (HCC); Diverticulitis; Primary hypertension Start: 12-13-2024 End: 12-13-2024 ambulatory TOMEKA ROSADO Not Available Start: 12-13-2024 End: 12-15-2024 Subsequent hospital visit by physician Grace Justice PA-C Work Phone: [facility] Comment on above: Bilateral renal cyst s; Adrenal adenoma, left Start: 12-13-2024 ambulatory [facility] Start: 12-08-2024 ambulatory [facility] Start: 12-08-2024 End: 12-08-2024 Subsequent hospital visit by physician Shaikh Jamie HERNANDEZ Work Phone: [facility] Laboratory Comment on above: Bilateral renal cyst s; Adrenal adenoma, left Start: 11-30-2024 End: 11-30-2024 Bamboo flowsheet Jenniffer RIBEIRO Work Phone: [facility] Start: 11-30-2024 End: 11-30-2024 Bamboo flowsheet Jenniffer RIBEIRO Work Phone: [facility] Start: 11-30-2024 End: 11-30-2024 Office outpatient visit 15 minutes Jenniffer RIBEIRO Work Phone: [facility] Comment on above: Acute pain of left s houlder (Primary Dx); Left rotator cuff tear arthropathy; Arthritis of left shoulder Start: 11-30-2024 End: 11-30-2024 ambulatory JENNIFFER SEARS Not Available Start: 11-28-2024 End: 11-28-2024 ambulatory Tomeka Rosado Facility:[facility] Start: 11-28-2024 End: 11-28-2024 Bamboo flowsheet Tomeka Aichholz MAINTAINABILITY ENGINEER Work Phone: [facility] Start: 11-28-2024 End: 11-30-2024 Bamboo flowsheet Tomeka Aichholz MAINTAINABILITY ENGINEER Work Phone: [facility] Start: 11-28-2024 End: 11-28-2024 Clinisync Result Encounter Tomeka Marvinholz MAINTAINABILITY ENGINEER Work Phone: [facility] External Department Unsolicited Start: 11-28-2024 End: 11-30-2024 External Result Encounter Tomeka Marvinholz MAINTAINABILITY ENGINEER Work Phone: [facility] External Department Unsolicited Start: 11-28-2024 End: 11-28-2024 Office outpatient visit 25 minutes Tomeka Leeroykushalyaquelinz MAINTAINABILITY ENGINEER Work Phone: [facility] Comment on above: LLQ pain (Primary Dx ); Diverticulosis of sigmoid colon; Diverticulitis Start: 11-28-2024 End: 11-28-2024 ambulatory TOMEKA AICHHOLZ Not Available Start: 11-22-2024 End: 11-22-2024 ambulatory [facility] Start: 10-19-2024 End: 10-19-2024 Refill Tomeka Aichholz MAINTAINABILITY ENGINEER Work Phone: [facility] Comment on above: Type 2 diabetes nkechi itus without complication, unspecified whether superintendent container terminal insulin use Start: 10-11-2024 End: 10-11-2024 Refill Gerald Low MD Work Phone: [facility] Comment on above: Type 2 diabetes nkechi itus with stage 3a chronic kidney disease, without long-term current use of insulin (HCC) ([facility]) Start: 10-10-2024 End: 10-10-2024 Bamboo flowsheet Tomeka Aichholz MAINTAINABILITY ENGINEER Work Phone: [facility] Start: 10-10-2024 End: 10-10-2024 Bamboo flowsheet Tomeka Aichholz MAINTAINABILITY ENGINEER Work Phone: [facility] Start: 10-10-2024 End: 10-10-2024 Office outpatient visit 25 minutes Tomeka Rosado MAINTAINABILITY ENGINEER Work Phone: [facility] Comment on above: Type 2 diabetes nkechi itus with stage 3a chronic kidney disease, without long-term current use of insulin (HCC) ([facility]/HCC) (Primary Dx); Gastroesophageal reflux disease without esophagitis; Primary malignant neuroendocrine neoplasm of duodenum ([facility]/HCC); Benign prostatic hyperplasia with lower urinary tract symptoms, symptom details unspecified; Obesity (BMI 30-39.9); Morbid obesity (CMS/HCC); Gout, unspecified cause, unspecified chronicity, unspecified site; Mixed hyperlipidemia ([facility]/HCC); Class 1 obesity due to excess calories with serious comorbidity in adult, unspecified BMI; Screening for prostate cancer; Diabetic polyneuropathy associated with type 2 diabetes mellitus ([facility]/HCC); Primary hypertension ([facility]/HCC) Start: 10-10-2024 End: 10-10-2024 ambulatory TOMEKA ROSADO Not Available Start: 08-12-2024 End: 08-12-2024 Bamboo flowsheet Jenniffer Sears PA Work Phone: [facility] Start: 08-12-2024 End: 08-12-2024 Bamboo flowsheet Jenniffer Sears PA Work Phone: [facility] Start: 08-12-2024 End: 08-12-2024 Office outpatient visit 25 minutes Jenniffer RIBEIRO Work Phone: [facility] Comment on above: Acute pain of left s marilyulder (Primary Dx); Left rotator cuff tear arthropathy Start: 08-12-2024 End: 08-12-2024 ambulatory JENNIFFER SEARS Not Available Start: 07-13-2024 End: 07-13-2024 Bamboo flowsheet Miriam Gatica MAINTAINABILITY ENGINEER Work Phone: [facility] Start: 07-13-2024 End: 07-13-2024 Bamboo flowsheet Miriam Gatica MAINTAINABILITY ENGINEER Work Phone: [facility] Start: 07-13-2024 End: 07-13-2024 Office outpatient visit 15 minutes Miriam Gatica MAINTAINABILITY ENGINEER Work Phone: [facility] Comment on above: Primary hypertension (CMS/HCC) (Primary Dx); Type 2 diabetes mellitus with stage 3a chronic kidney disease, without long-term current use of insulin (HCC) (CMS/HCC); Stage 3a chronic kidney disease (HCC) (CMS/HCC); Mixed hyperlipidemia (CMS/HCC) Start: 07-13-2024 End: 07-13-2024 ambulatory MIRIAM GATICA Not Available Start: 07-08-2024 End: 07-11-2024 Refill Miriam Gatica MAINTAINABILITY ENGINEER Work Phone: [facility] Comment on above: Gastroesophageal ref lux disease without esophagitis Start: 06-30-2024 End: 06-30-2024 Clinisync Result Encounter Generic External Data Provider [facility] External Department Unsolicited Start: 06-30-2024 End: 06-30-2024 Clinisync Result Encounter Generic External Data Provider [facility] External Department Unsolicited Start: 06-30-2024 End: 06-30-2024 Subsequent hospital visit by physician Jeremiah Magaña MD Work Phone[facility] Comment on above: 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) Start: 06-30-2024 End: 06-30-2024 ambulatory JEREMIAH MAGAÑA [place] Start: 06-21-2024 End: 06-21-2024 Office outpatient visit 40 minutes Neftali Knowles MD Work Phone: [facility] Comment on above: 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) Start: 06-21-2024 End: 06-21-2024 ambulatory NEFTALI KNOWLES [facility] Start: 05-31-2024 End: 05-31-2024 ambulatory [facility] Start: 04-14-2024 End: 04-14-2024 Clinisync Result Encounter Miriam Gatica MAINTAINABILITY ENGINEER Work Phone: [facility] External Department Unsolicited Start: 04-14-2024 End: 04-14-2024 Clinisync Result Encounter Miriam Laurazpatrick MAINTAINABILITY ENGINEER Work Phone: [facility] External Department Unsolicited Start: 04-13-2024 End: 04-13-2024 Bamboo flowsheet Jenniffer Sears PA Work Phone: [facility] Start: 04-13-2024 End: 04-13-2024 Bamboo flowsheet Jenniffer Sears PA Work Phone: [facility] Start: 04-13-2024 End: 04-13-2024 Office outpatient new 45 minutes Jenniffer Sears PA Work Phone: [facility] Comment on above: Acute pain of left s howard (Primary Dx); Left rotator cuff tear arthropathy Start: 04-13-2024 End: 04-13-2024 ambulatory JENNIFFER SEARS Not Available Start: 04-12-2024 End: 04-12-2024 Bamboo flowsheet Miriam Cardozopatrick MAINTAINABILITY ENGINEER Work Phone: [facility] Start: 04-12-2024 End: 04-12-2024 Bamboo flowsheet Miriam Gatica MAINTAINABILITY ENGINEER Work Phone: [facility] Start: 04-12-2024 End: 04-12-2024 Office outpatient visit 15 minutes Miriam En MAINTAINABILITY ENGINEER Work Phone: [facility] FM Comment on above: Mixed hyperlipidemia [...] Arthritis Start: 04-12-2024 End: 04-12-2024 ambulatory MIRIAM EN Not Available Start: 02-23-2024 End: 02-23-2024 Refill Miriam En MAINTAINABILITY ENGINEER Work Phone: [facility] Comment on above: Stage 3a chronic kid spencer disease (HCC) ([facility]/HCC); Type 2 diabetes mellitus with stage 3a chronic kidney disease, without long-term current use of insulin (HCC) ([facility]/HCC) Start: 02-03-2024 End: 02-03-2024 Clinisync Result Encounter Shaikh Jamie HERNANDEZ Work Phone: [facility] Unsolicited Start: 02-03-2024 End: 02-03-2024 Clinisync Result Encounter Shaikh Jamie HERNANDEZ Work Phone: [facility] Unsolicited Start: 01-11-2024 End: 01-11-2024 ambulatory SHAIKH JAMIE Not Available Start: 12-31-2023 End: 12-31-2023 Subsequent hospital visit by physician [facility] Comment on above: Primary malignant ne uroendocrine neoplasm of duodenum (Multi) Start: 12-31-2023 End: 12-31-2023 ambulatory NEFTALI [facility] Start: 12-29-2023 End: 12-29-2023 Subsequent hospital visit by physician Jeremiah Magaña MD [facility] Comment on above: 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) Start: 12-29-2023 End: 12-29-2023 ambulatory JEREMIAH MAGAÑA [place] Start: 12-28-2023 End: 12-28-2023 ambulatory SHAIKH JAMIE [facility] Start: 12-02-2023 ambulatory Maribeth Tanner Facility:[facility] Start: 12-01-2023 End: 12-03-2023 Subsequent hospital visit by physician [facility] M[facility] Comment on above: Bilateral renal cyst s; Adrenal adenoma, left Start: 11-30-2023 End: 11-30-2023 Subsequent hospital visit by physician Shaikh Jamie HERNANDEZ Work Phone: [facility] Laboratory Comment on above: Bilateral renal cyst s; Adrenal adenoma, left Start: 10-07-2023 End: 10-07-2023 Subsequent hospital visit by physician Jeremiah Magaña MD [facility] Phone[facility] Comment on above: 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) Start: 10-07-2023 End: 10-07-2023 ambulatory [facility] Start: 07-30-2023 Orders Only Shaikh Jamie HERNANDEZ Work Phone: [facility] IM Comment on above: Stage 3a chronic kid spencer disease (HCC) (CMS/HCC) (Primary Dx); Type 2 diabetes mellitus with stage 3a chronic kidney disease, without long-term current use of insulin (HCC) (CMS/HCC) Start: 07-28-2023 Refill Gerald Hawkins Work Phone: [facility] Comment on above: Primary hypertension (CMS/HCC) (Primary Dx) Start: 07-28-2023 End: 07-30-2023 Patient encounter procedure Grace Justice PA-C Work Phone: [facility] Work Phone: Start: 07-28-2023 End: 07-30-2023 Subsequent hospital visit by physician Grace Justice PA-C Work Phone: [facility] Ultrasound Comment on above: Exam for clinical tr ial Start: 07-02-2023 ambulatory Maribeth Lue Facility:[facility] Start: 06-30-2023 ambulatory Maribeth Lue Facility:[facility] Start: 06-10-2023 End: 06-10-2023 Subsequent hospital visit by physician Vic Mcrae MD [facility] Phone[facility] Comment on above: Primary malignant ne uroendocrine neoplasm of duodenum (CMS/HCC) (Primary Dx) Start: 05-26-2023 End: 05-26-2023 Subsequent hospital visit by physician [facility] Comment on above: Primary malignant ne uroendocrine neoplasm of duodenum (CMS/HCC) Start: 05-12-[address] Neftali Knowles Facility:[facility] Start: 05-09-2022 Chart Update Vanessa Penny ler Work Phone: [facility] Work Phone: Start: 04-29-2022 End: 04-29-2022 ambulatory Jeremiah Magaña Facility:[id number] Start: 03-01-2022 AUDIT Vanessa Penny [facility]er [facility] Work [facility]: Start: 12-05-2021 ambulatory Ms. Lulu Calle Facilit y:[phone] Start: 12-03-2021 AUDIT Vanessa Penny ler [facility] Work Phone: Start: 10-31-2021 ambulatory Ms. Lulu Calle Facilit y:[phone] Start: 08-26-[address] Neftali Knowles Facility:[facility] Start: 06-04-2021 End: 06-06-2021 Evaluation and management of inpatient DR VANESSA STEELE Facility:[facility] Start: 05-20-[address] Neftali Knowles Facility:[facility] Start: 05-16-2021 Result Review Vanessa Penny ler Work Phone: WQ-Itsjuhzxdpfbpqio-K [place] [facility] [address] DO Work Phone: Start: 05-01-2021 Chart Update Vanessa Penny ler Work Phone: SQ-Gnoafhcwksbncuge-Y [place] [facility] 450 DO Work Phone: Start: 04-26-2021 AUDIT Vanessa Penny ler Work Phone: [facility] Work Phone: Start: 02-05-2021 Telephone encounter Vanessa Steele Work Phone: BS-Ktionpedoweuieaf-I [place] [facility] 450 DO Work Phone: Start: 01-23-2021 AUDIT Vanessa Penny ler Work Phone: PM-Cfgscblqqkjvgzmk-M [place] [facility] 450 DO Work Phone: Start: 01-18-2021 AUDIT Vanessa Penny ler Work Phone: [facility] Work Phone: Start: 01-10-2021 Office outpatient vi sit 15 minutes Vanessa Steele Work Phone: [facility] Work Phone: Start: 12-19-2020 Office outpatient ne w 60 minutes Vanessa Steele Work Phone: [facility] Work Phone: Start: 11-29-2020 Encounter for preprocedural laboratory examination DR XAVI THOMPSON [facility] Start: 11-28-2020 End: 11-28-2020 ambulatory MIQUEL HAWKINS Facility:[facility] Start: 11-26-2020 End: 11-27-[address] XAVI THOMPSON Facility:[facility] Start: 11-26-2020 End: 11-27-2020 Encounter for preprocedural laboratory examination DR XAVI THOMPSON Facility:[facility] Start: 06-18-2020 End: 06-19-[address] VANESSA STEELE Facility:[facility] Start: 10-08-2018 End: 10-09-2018 Patient encounter procedure DEFAULT PHYSICIAN Facility:[email or web address] Procedures Date Procedure Procedure Detail Performing Clinician Start: 01-09-2025 XR ANKLE LT MIN 3V Tomeka Rosado MAINTAINABILITY ENGINEER Work Phone: Start: 12-08-2024 Assay of urea nitrog en quantitative Grace Justice PA-C Work Phone: Start: 11-30-2024 Arthrocentesis aspir &/inj major jt/bursa w/us Jenniffer RIBEIRO Work Phone: Start: 11-28-2024 XR ABDOMEN 1V Tomeka wilkerson MAINTAINABILITY ENGINEER Work Phone: Start: 11-28-2024 Culture bacterial quanttative colony count urine Tomeka Rosado MAINTAINABILITY ENGINEER Work Phone: Start: 11-28-2024 URINE CULTURE - [facility] Roxanne Rosado MAINTAINABILITY ENGINEER Work Phone: Start: 08-12-2024 Arthrocentesis aspir &/inj major jt/bursa w/us Jenniffer RIBEIRO Work Phone: Start: 07-13-2024 Hemoglobin glycosylated a1c Miriam Gatica MAINTAINABILITY ENGINEER Work Phone: Start: 06-30-2024 Egd transoral biopsy single/multiple Jeremiah Magaña MD Work Phone: Start: 06-30-2024 Glucose quantitative blood xcpt reagent strip Jeremiah Magaña MD Work Phone: Start: 06-30-2024 GLUCOSE-POCT Generic External Data Provider Start: 04-14-2024 ALL CBC WITH AUTO DIFF Miriam Gatica MAINTAINABILITY ENGINEER Work Phone: Start: 04-13-2024 Arthrocentesis aspir &/inj major jt/bursa w/o us Jenniffer RIBEIRO Work Phone: Start: 04-13-2024 Radex shoulder compl ete minimum 2 views Jenniffer RIBEIRO Work Phone: Start: 02-03-2024 MLR HEMOGLOBIN A1C John Ayala MD Work Phone: Start: 12-29-2023 Egd transoral biopsy single/multiple Jeremiah Magaña MD Work Phone: Start: 12-29-2023 PULSE OXIMETRY, SPOT Jaskaran Magaña MD Work Phone: Start: 12-29-2023 Glucose quantitative blood xcpt reagent strip Jeremiah Magaña MD Work Phone: Start: 11-30-2023 Assay of urea nitrog en quantitative Graceliang Justice PA-C Work Phone: Start: 10-07-2023 DISCHARGE PATIENT [facility] Start: 10-07-2023 ENDOSCOPIC ULTRASOUN D (UPPER) [facility] Start: 10-07-2023 SURGICAL PATHOLOGY EXAM [facility] Start: 10-07-2023 PLACE IN OUTPATIENT/HOSPITAL AMBULATORY SURGERY [facility] Start: 10-07-2023 Glucose [Mass/volume ] in Serum or Plasma [facility] Start: 10-07-2023 Edg us exam surgical alter stom duodenum/jejunum Vic Mcrae MD Work Phone: Start: 10-07-2023 Glucose quantitative blood xcpt reagent strip Jeremiah Magaña MD Work Phone: Start: 07-28-2023 Unlisted us procedure K jase Justice PA-C Work Phone: Start: 06-10-2023 PULSE OXIMETRY, CONTINUOUS Vic Mcrae MD Work Phone: Start: 06-10-2023 Egd transoral biopsy single/multiple Jazlyn Mcarthur RETAIL GENERAL MANAGER-GAS APPLIANCE SERVICER HELPER Work Phone: Start: 06-10-2023 PULSE OXIMETRY, SPOT Sa shirin Mcrae MD Work Phone: Start: 06-10-2023 Glucose quantitative blood xcpt reagent strip Vic Mcrae MD Work Phone: Start: 05-26-2023 Ct thorax w/contrast material Jazlyn Mcarthur RETAIL GENERAL MANAGER-GAS APPLIANCE SERVICER HELPER Work Phone: Start: 03-06-2023 Lipid 1996 panel - S xiao or Plasma Stj 2 Start: 12-05-2021 Medical genetics cou nseling each 30 minutes Vanessa Steele Work Phone: Start: 10-31-2021 Medical genetics cou nseling each 30 minutes Vanessa Steele Work Phone: Start: 06-04-2021 Resection of Gallbla dder, Percutaneous Endoscopic Approach DR VANESSA STEELE Start: 11-28-2020 Colonoscopy Vic moreno MD Work Phone: Appendectomy Vanessa Burciaga er Work Phone: Excision of bunion Vanessa Steele Work Phone: Repair of shoulder Vanessa Steele Work Phone: Plan of Treatment Date Care Activity Detail Author Start: 11-28-2030 Screening for malignant neoplasm of colon [facility] Start: 10-27-2028 DTaP/Tdap/Td vaccine (3 - Td or Tdap) DTaP/Tdap/Td vaccine (3 - Td or Tdap) [facility] Start: 10-27-2028 DTaP/Tdap/Td Vaccines (4 - Td or Tdap) DTaP/Tdap/Td Vaccines (4 - Td or Tdap) [facility] Start: 03-06-2028 Lipid panel Lipid Panel [facility] Start: 01-11-2026 End: 01-11-2026 Patient encounter procedure 01/11/2026 10:30 AM EDT Office Visit [facility] [address] [place] [address] Tomeka Rosado NP [address] [place] [address] [facility] Start: 01-09-2026 Medicare Annual Wellness (AWV) Medicare Annual Wellness (AWV) [facility] Start: 11-28-2025 Urine screening for protein Diabetes: Urine Protein Screening [facility] Start: 08-17-2025 Glaucoma screening Diabetes: Retinopathy Screening [facility] Start: 06-30-2025 Diabetes mellitus screening Diabetes Screening [facility] Start: 03-29-2025 End: 03-29-2025 Patient encounter procedure [facility] Start: 03-13-2025 Patient referral [facility] Work Phone: Start: 03-13-2025 End: 03-13-2025 Patient encounter procedure 03/13/2025 9:00 AM EDT Office Visit [facility] [address] [place] [address] Tomeka Rosado NP [address] [place] [phone] [facility] Start: 02-28-2025 Hemoglobin A1c measurement Diabetes: Hemoglobin A1C [facility] Start: 02-13-2025 Influenza vaccination Influenza Vaccine (#1) [facility] Start: 01-31-2025 End: 01-31-2025 Patient encounter procedure 01/31/2025 9:40 AM EDT Office Visit [facility] [address] [place] [address] [place] [address] [place], [place] [id number] [facility] Start: 01-13-2025 Influenza vaccination [facility] Start: 01-09-2025 End: 01-09-2026 XR Ankle - left 3 Views XR ankle 3+ views left Imaging Routine Left ankle swelling Expected: 01/09/2025, Expires: 01/09/2026 [facility] Work Phone: Comment on above: Expected: 01/09/2025, Expires: Start: 01-09-2025 End: 01-09-2025 Patient encounter procedure [facility] Comment on above: Encounter for subsequent annual wellness visit (AWV) [...] (HCC); Left adrenal mass (HCC); Mixed hyperlipidemia Start: 12-28-2024 Diabetes mellitus screening Diabetes Screening [facility] Start: 12-27-2024 Esophagogastroduodenoscopy EGD [facility] Start: 12-20-2024 End: 12-20-2024 Patient encounter procedure 12/20/2024 10:15 AM EDT Office Visit [facility] [address] [address] Grace Justice PA-C [address] [place] [address] [place] [address] 1 year f/u with MRI [facility] [place] Comment on above: 1 year f/u with MRI Start: 12-13-2024 End: 12-13-2024 Patient encounter procedure [facility] Comment on above: Bilateral renal cyst LLQ pain (Primary Dx ); Primary malignant neuroendocrine neoplasm of duodenum (HCC); Class 1 obesity due to excess calories with serious comorbidity in adult, unspecified BMI; Type 2 diabetes mellitus with stage 3a chronic kidney disease, without long-term current use of insulin (HCC); Diverticulitis Start: 12-09-2024 End: 12-09-2024 Patient encounter procedure 12/09/2024 9:00 AM EDT Office Visit [facility] [address] [place] [address] Jenniffer Sears PA [address] [facility] [address] [place] [address] [facility] Start: 11-30-2024 End: 11-30-2024 Patient encounter procedure [facility] Comment on above: Acute pain of left shoulder (Primary Dx) ; Left rotator cuff tear arthropathy Start: 11-29-2024 GFR test (Diabetes, CKD 3-4, OR last GFR 15-59) GFR test (Diabetes, CKD 3-4, OR last GFR 15-59) [facility] Start: 11-28-2024 End: 11-28-2025 Bacteria identified in Urine by Culture [facility] Comment on above: Expected: 11/28/2024 (Approximate), Expi res: 11/28/2025 Start: 11-28-2024 End: 11-28-2025 CBC W Auto Differential panel - Blood CBC and differential Lab Routine Diverticulosis of sigmoid colon LLQ pain Expected: 11/28/2024 (Approximate), Expires: 11/28/2025 [facility] Work Phone: Comment on above: Expected: 11/28/2024 (Approximate), Expi res: 11/28/2025 Start: 11-28-2024 End: 11-28-2025 Comprehensive metabolic 2000 panel - Serum or Plasma Comprehensive metabolic panel Lab Routine Diverticulosis of sigmoid colon LLQ pain Expected: 11/28/2024 (Approximate), Expires: 11/28/2025 [facility] Comment on above: Expected: 11/28/2024 (Approximate), Expi res: 11/28/2025 Start: 11-28-2024 End: 11-28-2025 Erythrocyte sedimentation rate Sedimentation rate, automated Lab Routine Diverticulosis of sigmoid colon LLQ pain Expected: 11/28/2024 (Approximate), Expires: 11/28/2025 [facility] Comment on above: Expected: 11/28/2024 (Approximate), Expi res: 11/28/2025 Start: 11-28-2024 End: 11-28-2024 Patient encounter procedure 11/28/2024 2:00 PM EDT Office Visit [facility] [address] [place] [phone] Tomeka Rosado NP [address] [place] [phone] Arrived [facility] Comment on above: Arrived Start: 11-28-2024 End: 11-28-2025 Urinalysis complete panel - Urine Urinalysis with reflex microscopic (clean catch) Lab Routine Diverticulosis of sigmoid colon LLQ pain Expected: 11/28/2024 (Approximate), Expires: 11/28/2025 [facility] Comment on above: Expected: 11/28/2024 (Approximate), Expi res: 11/28/2025 Start: 10-11-2024 Hemoglobin A1c measurement Diabetes: Hemoglobin A1C [facility] Start: 10-10-2024 End: 10-10-2025 Basic metabolic 1998 panel - Serum or Plasma Basic metabolic panel Lab Routine Type 2 diabetes mellitus with stage 3a chronic kidney disease, without long-term current use of insulin (HCC) ([facility]) Expected: 10/10/2024 (Approximate), Expires: 10/10/2025 [facility] Work Phone: Comment on above: Expected: 10/10/2024 (Approximate), Expi res: 10/10/2025 Start: 10-10-2024 End: 10-10-2025 Hemoglobin A1c/Hemoglobin.total in Blood Hemoglobin A1c Lab Routine Screening for prostate cancer Expected: 10/10/2024 (Approximate), Expires: 10/10/2025 [facility] Comment on above: Expected: 10/10/2024 (Approximate), Expi res: 10/10/2025 Start: 10-10-2024 End: 10-10-2025 Microalbumin/Creatinine panel in random Urine Microalbumin / creatinine, urine ratio Lab Routine Type 2 diabetes mellitus with stage 3a chronic kidney disease, without long-term current use of insulin (HCC) ([facility]) Expected: 10/10/2024 (Approximate), Expires: 10/10/2025 [facility] Comment on above: Expected: 10/10/2024 (Approximate), Expi res: 10/10/2025 Start: 10-10-2024 End: 10-10-2025 Urate [Mass/volume] in Serum or Plasma Uric acid Lab Routine Mixed hyperlipidemia ([facility]) Expected: 10/10/2024 (Approximate), Expires: 10/10/2025 [facility] Comment on above: Expected: 10/10/2024 (Approximate), Expi res: 10/10/2025 Start: 10-10-2024 End: 10-10-2025 Urinalysis complete panel - Urine Urinalysis with reflex microscopic (clean catch) Lab Routine Type 2 diabetes mellitus with stage 3a chronic kidney disease, without long-term current use of insulin (HCC) ([facility]) Expected: 10/10/2024 (Approximate), Expires: 10/10/2025 [facility] Comment on above: Expected: 10/10/2024 (Approximate), Expi res: 10/10/2025 Start: 10-10-2024 End: 10-10-[address] [facility] Comment on above: Gastroesophageal reflux disease without esophagitis (Primary Dx); Primary malignant neuroendocrine neoplasm of duodenum (CMS/HCC); Benign prostatic hyperplasia with lower urinary tract symptoms, symptom details unspecified; Obesity (BMI 30-39.9); Morbid obesity (CMS/HCC); Type 2 diabetes mellitus with stage 3a chronic kidney disease, without long-term current use of insulin (HCC) (CMS/HCC); Gout, unspecified cause, unspecified chronicity, unspecified site; Mixed hyperlipidemia (CMS/HCC); Class 1 obesity due to excess calories with serious comorbidity in adult, unspecified BMI; Screening for prostate cancer Start: 10-06-2024 Diabetes mellitus screening Diabetes Screening [facility] Start: 08-12-2024 End: 08-12-2024 Patient encounter procedure [facility] Comment on above: Acute pain of left shoulder (Primary Dx) Start: 07-13-2024 End: 07-13-2024 Patient encounter procedure [facility] Comment on above: Arrived Start: 06-26-2024 Esophagogastroduodenoscopy EGD [facility] Start: 06-21-2024 End: 06-21-2024 Patient encounter procedure 06/21/2024 9:40 AM EST Office Visit [facility] [address] [place] [address] [place] [address] [place] [address] [facility] Start: 06-10-2024 Diabetes mellitus screening Diabetes Screening [facility] Start: 04-14-2024 Hemoglobin A1c measurement Diabetes: Hemoglobin A1C [facility] Start: 04-13-2024 End: 04-13-2024 Patient encounter procedure 04/13/2024 9:00 AM EDT Office Visit [facility] [address] [place] [address] Jenniffer Sears PA [address] [address] Acute pain of left shoulder (Primary Dx); Left rotator cuff tear arthropathy; Chronic pain of right knee; Arthritis [facility] Comment on above: Acute pain of left shoulder (Primary Dx) ; Left rotator cuff tear arthropathy; Chronic pain of right knee; Arthritis Start: 04-12-2024 End: 04-12-2025 CBC W Auto Differential panel - Blood CBC and differential Lab Routine Primary hypertension ([facility]/HCC) Type 2 diabetes mellitus with stage 3a chronic kidney disease, without long-term current use of insulin (HCC) ([facility]/HCC) Stage 3a chronic kidney disease (HCC) ([facility]/HCC) Expected: 04/12/2024 (Approximate), Expires: 04/12/2025 [facility] Comment on above: Expected: 04/12/2024 (Approximate), Expi res: 04/12/2025 Start: 04-12-2024 End: 04-12-2025 Comprehensive metabolic 2000 panel - Serum or Plasma Comprehensive metabolic panel Lab Routine Primary hypertension ([facility]/HCC) Type 2 diabetes mellitus with stage 3a chronic kidney disease, without long-term current use of insulin (HCC) ([facility]/HCC) Stage 3a chronic kidney disease (HCC) ([facility]/HCC) Expected: 04/12/2024 (Approximate), Expires: 04/12/2025 [facility] Comment on above: Expected: 04/12/2024 (Approximate), Expi res: 04/12/2025 Start: 04-12-2024 End: 04-12-2025 Hemoglobin A1c/Hemoglobin.total in Blood Hemoglobin A1c Lab Routine Type 2 diabetes mellitus with stage 3a chronic kidney disease, without long-term current use of insulin (HCC) ([facility]/HCC) Expected: 04/12/2024 (Approximate), Expires: 04/12/2025 [facility] Comment on above: Expected: 04/12/2024 (Approximate), Expi res: 04/12/2025 Start: 04-12-2024 End: 04-12-2025 Lipid 1996 panel - Serum or Plasma Lipid panel Lab Routine Mixed hyperlipidemia ([facility]/HCC) Expected: 04/12/2024 (Approximate), Expires: 04/12/2025 [facility] Comment on above: Expected: 04/12/2024 (Approximate), Expi res: 04/12/2025 Start: 04-12-2024 End: 04-12-2024 Patient encounter procedure [facility] Comment on above: Arrived Start: 2024 Respiratory Syncytial Virus (RSV) or age 60 yrs+ (1 - 1-dose 75+ series) Respiratory Syncytial Virus (RSV) or age 60 yrs+ (1 - 1-dose 75+ series) [facility] Start: 03-06-2024 Urine screening for protein Diabetes: Urine Protein Screening [facility] Start: 02-25-2024 Medicare Annual Wellness (AWV) Medicare Annual Wellness (AWV) [facility] Start: 02-14-2024 COVID-19 Vaccine ( season) COVID-19 Vaccine () [facility] Start: 02-14-2024 COVID-19 Vaccine () COVID-19 Vaccine () [facility] Start: 02-14-2024 Influenza vaccination Influenza Vaccine (#1) [facility] Start: 12-31-2023 End: 12-31-2023 Patient encounter procedure 12/31/2023 7:30 AM EDT [facility] [address] [place] [address] [facility] Start: 12-07-2023 End: 12-07-2023 Patient encounter procedure 12/07/2023 10:30 AM EDT Office Visit [facility] [address] [address] Grace Justice, PACheyenneC [address] [place] [address] [address] 3 month f/u with MRI and PVR [facility] Comment on above: 3 month f/u with MRI and PVR Start: 12-01-2023 Subsequent hospital visit by physician 12/01/2023 9:30 AM EDT Hospital Encounter [facility] [address] [place] [id number] [facility] Start: 09-28-2023 Hemoglobin A1c measurement Diabetes: Hemoglobin A1C [facility] Start: 08-27-2023 COVID-19 Vaccine ( season) COVID-19 Vaccine ( season) [facility] Start: 08-11-2023 End: 08-11-2023 Patient encounter procedure 08/11/2023 9:15 AM EST Office Visit [facility] [address] [place] [address] Shaikh Ayala MD [address] [place] [address] [facility] Start: 07-31-2023 Annual Wellness Visit (Medicare) Annual Wellness Visit (Medicare) [facility] Start: 07-31-2023 End: 07-31-2023 Patient encounter procedure 07/31/2023 9:30 AM EST Office Visit [facility] on [place] [id number] Grace Justice, PA-C [address] [place] [address] [address] N28.1 - Renal cyst, left [facility] Comment on above: N28.1 - Renal cyst, left Start: 06-23-2023 COVID-19 Vaccine (4 - Pfizer series) COVID-19 Vaccine (4 - Pfizer series) [facility] Start: 06-18-2023 End: 06-18-2023 Patient encounter procedure 06/18/2023 12:40 PM EST Office Visit [facility] [address] [place] [address] [place] [address] [place] [address] [facility] Start: 06-10-2023 End: 06-10-2023 Patient encounter procedure 06/10/2023 8:30 AM EST [facility] [address] [place] [id number] [place] [address] [place] [address] [facility] Start: 04-29-2023 Diabetes mellitus screening Diabetes Screening [facility] Start: 04-29-2022 EGDANS, Provider: Jeremiah Magaña, Status: Pen, Time: 7:30 AM EGDANS, Provider: Jeremiah Magaña, Status: Pen, Time: 7:30 AM EX-Zyrsxvtc-Pdvoiu de 1500 Work Phone: Start: 11-13-2021 NPV, Provider: Deb Zavala, Status: Pen, Time: 11:20 AM NPV, Provider: Deb Zavala, Status: Pen, Time: 11:20 AM QW-Eymzawda-Saakpp de 1500 Work Phone: Start: 05-16-2021 Urine screening for protein Diabetes: Urine Protein Screening [facility] Start: 05-01-2021 EGDANS, Provider: Irwin Cespedes, Status: Pen, Time: 8:30 AM EGDANS, Provider: Irwin Cespedes, Status: Pen, Time: 8:30 AM [facility] [facility] 450 DO Work Phone: Start: 01-23-2021 EUSANS, Provider: Irwin Cespedes, Status: Pen, Time: 10:30 AM EUSANS, Provider: Irwin Cespedes, Status: Pen, Time: 10:30 AM [facility] Work Phone: Start: 07-08-2020 Glaucoma screening Diabetes: Retinopathy Screening [facility] Start: 07-19-2016 Shingles vaccine (2 of 3) Shingles vaccine (2 of 3) [facility] Start: 07-19-2016 Zoster Vaccines (2 of 3) Zoster Vaccines (2 of 3) [facility] Start: 2014 Abdominal aortic aneurysm screening Abdominal Aortic Aneurysm (AAA) Screening [facility] Start: 2009 Hepatitis B Vaccines (1 of 3 - Risk 3-dose series) Hepatitis B Vaccines (1 of 3 - Risk 3-dose series) [facility] Start: 2009 Respiratory Syncytial Virus (RSV) or age 60 yrs+ (1 - 1-dose 60+ series) Respiratory Syncytial Virus (RSV) or age 60 yrs+ (1 - 1-dose 60+ series) [facility] Start: 2009 RSV patients and/or patients aged 60+ years (1 - 1-dose 60+ series) RSV patients and/or patients aged 60+ years (1 - 1-dose 60+ series) [facility] Start: 1994 Screening for malignant neoplasm of colon [facility] Start: 1989 Lipid panel Lipids [facility] Start: 1968 Hepatitis A Vaccines (1 of 2 - Risk 2-dose series) Hepatitis A Vaccines (1 of 2 - Risk 2-dose series) [facility] Start: 1967 Hepatitis C screening [facility] Start: 1961 Depression Screen Depression Screen [facility] Start: 1959 Lipid panel Lipids [facility] Start: 1949 Medicare Annual Wellness Visit Medicare Annual Wellness Visit (AWV) [facility] Start: 1950 Screening for malignant neoplasm of colon [facility] End: 05-26-2023 CT Chest and Abdomen and Pelvis W contrast IV [facility] Service Area Work Phone: Comment on above: Once for 1 Occurrences starting 05/26/20 23 until 05/26/2023 End: 12-31-2023 CT Chest W contrast IV [facility] Area Work Phone: Comment on above: Once for 1 Occurrences starting 12/31/19 24 until 12/31/2023 Microalbumin/Creatin ine panel in random Urine Microalbumin / creatinine urine ratio Lab Routine Primary hypertension (CMS/HCC) Type 2 diabetes mellitus with stage 3a chronic kidney disease, without long-term current use of insulin (HCC) (CMS/HCC) Stage 3a chronic kidney disease (HCC) (CMS/HCC) Ordered: 04/12/2024 [facility] Work Phone: Comment on above: Ordered: 04/12/2024 End: 10-07-2023 Moderate Sedation Moderate Sedation Procedures Routine Once for 1 Occurrences starting 10/07/2023 until 10/07/2023 [facility] Work Phone: Comment on above: Once for 1 Occurrences starting 10/07/19 until 10/07/2023 End: 12-29-2023 Moderate Sedation Moderate Sedation Procedures Routine Once for 1 Occurrences starting 12/29/2023 until 12/29/2023 [facility] Service Area Work Phone: Comment on above: Once for 1 Occurrences starting 12/29/19 until 12/29/2023 End: 12-01-2023 MR Abdomen WO and W contrast IV [facility] Work Phone: Comment on above: 1 Occurrences starting 12/01/2023 until 12/01/2023 End: 12-13-2024 MR Abdomen WO and W contrast IV [facility] Work Phone: Comment on above: 1 Occurrences starting 12/13/2024 until 12/13/2024 Patient referral [facility] Work Phone: End: 10-07-2023 Pulse oximetry, continuous Pulse oximetry, continuous Respiratory Care Routine Continuous until discontinued starting 10/07/2023 [facility] Work Phone: Comment on above: Continuous until discontinued starting 0 10/07/2023 End: 10-07-2023 Pulse oximetry, spot Pulse oximetry, spot Respiratory Care Routine Once for 1 Occurrences starting 10/07/2023 until 10/07/2023 [facility] Area Work Phone: Comment on above: Once for 1 Occurrences starting 10/07/19 until 10/07/2023 Surgical pathology study [facility] S [facility] Area Work Phone: Comment on above: Release Upon Ordering for 1 Occurrences starting 06/10/2023 Release Upon Orderin g for 1 Occurrences starting 06/10/2023, 1 completed Surgical pathology study [facility] Work Phone: Comment on above: Release Upon Ordering for 1 Occurrences starting 10/07/2023, 1 completed Surgical pathology study [facility] Work Phone: Comment on above: Release Upon Ordering for 1 Occurrences starting 12/29/2023, 1 completed Surgical pathology study [facility] S Service Area Work Phone: Comment on above: Release Upon Ordering for 1 Occurrences starting 06/30/2024, 1 completed URINE CULTURE - [facility] URINE CULTU RE - [facility] Lab Routine 11/28/2024 2:55 PM EDT [facility] Work Phone: Immunizations Immunization Date Immunization Notes Care Provider Jaskaran hastings 05-24-2024 RSV, recombinant, protein subunit RSVpreF, adjuvant reconstitu, 120mcg/0.5mL, PF (Arexvy) Tomeka Rosado MAINTAINABILITY ENGINEER Work Phone: [facility] 04-05-2024 Seasonal trivalent influenza vaccine, adjuvanted, preservative free Tomeka Rosado MAINTAINABILITY ENGINEER Work Phone: [facility] 04-05-2024 influenza virus vaccine, unspecified formulation Miriam Gatica MAINTAINABILITY ENGINEER Work Phone: [facility] 03-20-2023 Influenza, High-dose Seasonal, Quadrivalent, Preservative Free Gerald Low MD Work Phone: [facility] 03-20-2023 influenza virus vaccine, unspecified formulation Jeremiah Magaña MD Work Phone: [facility] Work Phone: 02-24-2023 pneumococcal polysaccharide vaccine, 23 valent Gerald Low MD Work Phone: [facility] 03-27-2022 Influenza, High-dose Seasonal, Quadrivalent, Preservative Free Gerald Low MD Work Phone: [facility] 10-15-2021 Comirnaty 30 MCG/0.3 ML Intramuscular Suspension Vanessa Steele Work Phone: XR-Cxvfubxl-Vsuhmc de 1500 Work Phone: 03-25-2021 Pfizer-BioNTech COVID-19 Vacc 30 MCG/0.3ML Intramuscular Suspension Vanessa Steele Work Phone: DR-Dxtfaxes-Jxhgjq de 1500 Work Phone: 03-01-2021 Fluzone High-Dose Quadrivalent 0.7 ML Intramuscular Suspension Prefilled Syringe Vanessa Dey Cedric Work Phone: [facility] Work Phone: 08-07-2020 Pfizer-BioNTech COVID-19 Vacc 30 MCG/0.3ML Intramuscular Suspension Vanessa Dey Clarence Work Phone: [facility] Work Phone: 07-17-2020 Pfizer-BioNTech COVID-19 Vacc 30 MCG/0.3ML Intramuscular Suspension Vanessa Dey Cedric Work Phone: [facility] Work Phone: 02-24-2020 Fluzone High-Dose Quadrivalent 0.7 ML Intramuscular Suspension Prefilled Syringe Vanessa F Cedric Work Phone: [facility] Work Phone: 03-09-2019 influenza, high dose seasonal, preservative-free Vanessa F Cedric Work Phone: [facility] Work Phone: 11-22-2018 pneumococcal conjuga te vaccine, 13 valent Vanessa Yissel Cedric Work Phone: [facility] Work Phone: 10-27-2018 tetanus and diphther ia toxoids, adsorbed, preservative free, for adult use (2 Lf of tetanus toxoid and 2 Lf of diphtheria toxoid) Gerald Low MD Work Phone: [facility] 10-27-2018 tetanus toxoid, redu norris diphtheria toxoid, and acellular pertussis vaccine, adsorbed Vanessa Yissel Cedric Work Phone: [facility] Work Phone: 05-21-2018 pneumococcal conjuga te vaccine, 13 valent Vanessatoñito Steele Work Phone: [facility] Work Phone: 04-09-2018 influenza, high dose seasonal, preservative-free Vanessa Steele Work Phone: [facility] Work Phone: 05-18-2017 influenza, high dose seasonal, preservative-free Vanessa Steele Work Phone: [facility] Work Phone: 05-24-2016 zoster vaccine, live Ponce Steele Work Phone: [facility] Work Phone: 05-15-2016 zoster vaccine, live Ponce Steele Work Phone: [facility] Work Phone: 03-13-2016 influenza, seasonal, injectable, preservative free Vanessa Steele Work Phone: [facility] Work Phone: 03-28-2015 influenza, seasonal, injectable, preservative free Vanessa Steele Work Phone: [facility] Work Phone: 03-14-2011 tetanus toxoid, redu norris diphtheria toxoid, and acellular pertussis vaccine, adsorbed Vanessa Steele Work Phone: [facility] Work Phone: 08-06-2009 novel [id number], preservative-free, injectable Vanessa Steele Work Phone: [facility] Work Phone: 05-12-2006 pneumococcal polysaccharide vaccine, 23 valent Vanessa Steele Work Phone: [facility] Work Phone: Payers Date Payer Category Payer Self-pay 2016 Medicare [id number] 2016 Medicaid [employer] MEDICARE A DVANTAGE [id number] 2016 Medicare (Managed Care) GENERIC MEDICARE ADVANTAGE [id number] 2016 Private Health Insurance [id number] 2016 Unknown 1959 Medicare [id number] 1949 Unknown [id number] 2.16.840.1.010216.3.579. 2.647 1949 Unknown [id number] 2.16.840.1.232117.3.579. 2.593 1949 Unknown [id number] 2.16.840.1.408252.3.579. 2.593 1949 Unknown [id number] 2.16.840.1.930112.3.579. 2.593 1949 Unknown [id number] 2.16.840.1.600143.3.579. 2.593 1949 Unknown [id number] 2.16.840.1.727808.3.579. 2.356 1949 Unknown [id number] 2.16.840.1.337335.3.579. 2.356 1949 Unknown [id number] 2.16.840.1.460414.3.579. 2.356 1949 Unknown [id number] 2.16.840.1.424252.3.579. 2.356 1949 Unknown [id number] 2.16.840.1.410315.3.579. 2.356 1949 Unknown [id number] 2.16.840.1.833705.3.579. 2.1069 1949 Unknown [id number] 2.16.840.1.339833.3.579. 2.1069 1949 Unknown [id number] 2.16.840.1.726790.3.579. 2.1245 1949 Unknown [id number] 2.16.840.1.490475.3.579. 2.1245 1949 Unknown [id number] 2.16.840.1.809379.3.579. 2.1243 1949 Unknown [id number] 2.16.840.1.870907.3.579. 2.1243 1949 Unknown [id number] 2.16.840.1.791810.3.579. 2.1243 1949 Unknown [id number] 2.16.840.1.053316.3.579. 2.1243 1949 Unknown [id number] 2.16.840.1.961366.3.579. 2.754 1949 Unknown [id number] 2.16.840.1.118789.3.579. 2.754 1949 Unknown [id number] 2.16.840.1.748994.3.579. 2.1259 1949 Unknown [id number] 2.16.840.1.973662.3.579. 2.1259 1949 Unknown [id number] 2.16.840.1.104432.3.579. 2.1259 1949 Unknown [id number] 2.16.840.1.676377.3.579. 2.1259 1949 Unknown [id number] 2.16.840.1.905697.3.579. 2.1259 1949 Unknown [id number] 2.16.840.1.822159.3.579. 2.1259 1949 Unknown [id number] 2.16.840.1.719177.3.579. 2.1259 1949 Unknown [id number] 2.16.840.1.841408.3.579. 2.1259 1949 Unknown [id number] 2.16.840.1.701386.3.579. 2.1259 1949 Unknown [id number] 2.16.840.1.814527.3.579. 2.1259 1949 Unknown [id number] 2.16.840.1.854491.3.579. 2.1259 Private Health Insurance [id number] Unknown [id number] 2.16.840.1.004470.3.579. 2.531 Social History Date Type Detail Facility Start: 06-10-2023 End: 07-06-2024 Non-smoker Non-smoker [facility] Tobacco smoking status INIS Tobacco smoking consumption unknown [facility] Work Phone: Start: 1950 [facility]: Start: 06-10-2023 End: 07-06-2024 Gender identity Not on file [facility] Start: 05-12-2023 End: 06-30-2024 Exposure to SARS-CoV-2 (event) Not sure [facility] Start: 06-10-2023 End: 01-11-2024 Tobacco smoking status NHIS Ex-smoker [facility] Work Phone: Start: 06-15-1968 End: 06-15-1983 History of tobacco use Current smoker [facility] Work Phone: Start: 06-15-1968 End: 06-15-1983 History of tobacco use Cigarette Smoker [facility] Work Phone: Start: 06-10-2023 End: 01-11-2024 Tobacco use and exposure Smokeless tobacco non-user [facility] Work Phone: Start: 06-10-2023 End: 01-09-2025 Alcohol intake Current drinker of alcohol (finding) [facility] Work Phone: Start: 06-10-2023 Alcohol Comment Social [facility] Work Phone: Within the last year , have you been afraid of your partner or ex-partner? No [facility] How often do you attend congregation or confucianism services? Patient refused [facility] [...] Healthcare Start: 10-07-2023 Sexual orientation Heterosexual (sancho skyla) [facility] Start: 07-31-2023 Tobacco smoking status NHIS Never smoked tobacco [facility] Phone: Start: 09-07-2023 End: 12-01-2023 Alcohol intake [facility] Start: 10-12-2023 Alcohol Comment OCCASSIONA; [facility] Start: 04-13-2024 Alcohol Comment OCCASSIONAL [facility] Start: 1950 Sex assigned at Male [facility] Work Phone: How often do you hav e 6 or more drinks on 1 occasion? Never [facility] How often do you nee d to have someone help you when you read instructions, pamphlets, or other written material from your doctor or pharmacy [SILS] Rarely [facility] Start: 07-25-2012 Sex Male (finding) [facility] NEGATED: Highlighted rowStart: AUBRIE History of tobacco use Passive smoker [facility] Medical Equipment Procedure Code Equipment Code Equipment Origin al Text Equipment Identifier Dates Generic Supply 0 8 Case [id number] Start: 01-23-2021 Comment on above: Description: Convert ed from [facility] Acute. Please see archived information for full log information. USE DIRECTED ONCE TEST [id number] Start: 06-22-2023 End: 10-19-2024 USE DIRECTED ONCE TEST [id number] Start: 06-22-2023 1 each by Other route Daily dailyUse as instructed [id number] Start: 10-19-2024 End: 01-27-2025 Functional Status Date Assessment Result Facility 01-09-2025 Patient Health [facility] ionnaire 2 item (PHQ-2) [facility] 11-28-2020 to 01-09-2025 Tomeka Rosado NP - 01/09/2025 9:08 AM Fior Rosado, ANJEL - 01/09/2025 8:40 AM Fior Rosado, ANJEL - 01/09/2025 6:20 AM Fior Rosado, ANJEL - 01/09/2025 6:19 AM EDTPatient Instructions Note Date & Type Note Facility 01-09-2025 History of Present illness Narrative Associated Problem(s): Primary hypertension Please check blood pressure daily and record DASH diet Limit caffeine Take medication as directed Contact office if chest pain, pressure, dizziness, shortness of breath, swelling legs Recommend slow position changes Current meds: bisoprolol, losartan Elevation today, stop by office in 2 weeks for BP check Images from the original note were not included. Yusef Car is a 74 y.o. male presents [...] no, recent ER visit Specialist: eye doctor, sketcher, urology, GI, oncololgy HCPOA/Living Will: POA Concerns: left ankle pain: intemittent swelling, pain [...] A MEAL (DO NOT CRUSH OR CHEW) rosuvastatin (CRESTOR) 20 mg, Oral, Daily tamsulosin [...] 2 left hand Allergic 1963 Allergic rhinitis 1962 Anemia Arthritis 1999 Campylobacter diarrhea Cancer (HCC) 2020 Decreased testosterone [...] moderate sigmoid diverticulosis,Dr Alvarez CYSTOSCOPY dilitation - 2000? HEMANGIOMA EXCISION 2012 tongue ROTATOR CUFF REPAIR Left 2004 SEPTOPLASTY 2008 TUMOR REMOVAL 01/2021 Duodenum neuroendocrine tumor family [...] Size: Adult long) Pulse 68 Temp 98.5 F (Temporal) Resp 18 Wt 231 lb 6.4 oz SpO2 96% BMI 33.20 kg/m Smoking Status Former BSA 2.28 m Physical Exam Vitals and nursing note reviewed. [...] the past Stage 3a chronic kidney disease ([facility]) Noted on prior labs Control blood pressure [...] at last office visit, was sent to [facility] ER via squad Bisoprolol dose was [...] Relevant Orders XR ankle 3+ views left Associated Problem(s): Encounter for subsequent annual wellness visit (AWV) in Medicare patient Reviewed Ht/Wt/BMI Recommend eye exam yearly Recommend dental exams twice a year Balance work/leisure activities Exercises is recommended most days of the week (appropriate as chronic conditions allow) Follow up yearly and prn Associated Problem(s): Mixed hyperlipidemia On statin therapy Check labs yearly and prn dose changes Associated Problem(s): 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HCC) Continue recommended monitoring of this Associated Problem(s): Left adrenal mass (HCC) Follows with urology for this Associated Problem(s): Class 1 obesity with serious comorbidity in adult Discussed with patient their BMI (actual, verses recommended). We have also discussed lifestyle modifications: attempts to perform physical activity as chronic conditions allow, also to monitor dietary intake: increasing protein/fruits/veggies and lowering carb intake (unless contraindicated). Limit sodas, juices, and sugary drinks. Associated Problem(s): Type 2 diabetes mellitus with [...] meds: jardiance, gimepiride, statin A1c 7.0% 11/28/24 Associated Problem(s): Stage 3a chronic kidney disease ([facility]-HCC) Noted on prior labs Control blood pressure as well as diabetes Avoid nephrotoxic drugs if possible Associated Problem(s): Bradycardia Noted at last office visit, was sent to [facility] ER via squad Bisoprolol dose was lowered from 10mg daily to 5mg daily Associated Problem(s): NSVT (nonsustained ventricular tachycardia) ([facility]) Noted from cardiology notes in the past Associated Problem(s): LLQ pain Checked labs and xray at last appt Treated for suspected diverticulitis, sxs resolved documented in this encounter [facility] 01-09-2025 Instructions Tomeka Rosado NP - 01/09/2025 8:40 AM EDT Follow up in office for 2 weeks Get xray documented in this encounter [facility] 12-13-2024 History of Present illness Narrative Associated Problem(s): Bradycardia No current sxs , at HR that he has, we discussed that despite asymptomatic we will send to hospital 911 Squad comes to medicinal plant picker pt, report given Sent with last office note, for med list etc I have reassessed the pt: HR 34, BP 120/72 Skin is pink, warm, and dry Associated Problem(s): Primary hypertension Please check blood pressure daily and record DASH diet Limit caffeine Take medication as directed Contact office if chest pain, pressure, dizziness, shortness of breath, swelling legs Recommend slow position changes Current meds: bisoprolol, amlodipine Images from the original note were not included. Yusef Car is a 74 y.o. male presents with chief complaint of Diabetes HPI: Here for recheck of diverticulitis: no pain, no fever, no chills, no bright red stools, some darker color, no constipation Does feel fatigue today, no chest pain/dypsnea, no dizziness or lightheadedness noted SUBJECTIVE: MEDICATIONS: Current Outpatient Medications Medication Instructions allopurinol (ZYLOPRIM) 300 mg, Oral, Daily amLODIPine (NORVASC) 5 mg, Daily PRN bisoprolol (ZEBETA) 10 mg, Oral, Every morning [...] A MEAL (DO NOT CRUSH OR CHEW) rosuvastatin (CRESTOR) 20 mg, Oral, Daily tamsulosin (FLOMAX) 0.4 mg, Daily ALLERGIES: Allergies Allergen Reactions Azithromycin Unknown Ciprofloxacin Other Reaction(s): ?change in mental status Erythromycin GI intolerance and Other Lisinopril Cough REVIEW OF SYMPTOMS: Review of Systems Constitutional: Positive for fatigue. Negative for activity change, appetite change and [...] urine volume, difficulty urinating, dysuria and hematuria. Skin: Negative for color change. Neurological: Negative [...] 2 left hand Allergic 1963 Allergic rhinitis 1962 Anemia Arthritis 1999 Campylobacter diarrhea Cancer (HCC) 2020 Decreased testosterone [...] 2004 SEPTOPLASTY 2008 TUMOR REMOVAL 01/2021 Duodenum neuroendocrine tumor family history includes Breast cancer in his sister; Cancer in his brother; Diabetes in his father and son; Hearing loss in his father; Heart disease in his father and mother; Heart failure in his mother; Hypertension in his father; Meniere's disease in his brother; multinodular goiter in his brother. OBJECTIVE: Visit Vitals BP 100/62 (BP Location: Left arm, Patient Position: Sitting, BP Cuff Size: Adult long) Pulse (!) 24 Temp 98.5 F (Temporal) Resp 18 Wt 225 lb 12.8 oz SpO2 95% BMI 32.40 kg/m Smoking Status Former BSA 2.24 m Physical Exam Vitals and nursing note reviewed. Constitutional: Appearance: Normal appearance. HENT: Head: Normocephalic. Right Ear: External ear normal. Left Ear: External ear normal. Nose: Nose normal. Mouth/Throat: Mouth: Mucous membranes are moist. Pharynx: Oropharynx is clear. Eyes: Extraocular Movements: Extraocular movements intact. Conjunctiva/sclera: Conjunctivae normal. Cardiovascular: Rate and Rhythm: Regular rhythm. Bradycardia present. Pulses: Normal pulses. Heart sounds: Normal heart sounds. No murmur heard. Comments: 24-34 BPM Pulmonary: Effort: Pulmonary effort is normal. Breath sounds: Normal breath sounds. No wheezing or rhonchi. Abdominal: General: Bowel sounds are normal. There is no distension. Palpations: Abdomen is soft. Tenderness: There is no guarding. Musculoskeletal: Cervical back: Neck supple. Right lower leg: No edema. Left lower leg: No edema. Skin: General: Skin is warm and dry. Capillary Refill: Capillary refill takes 2 to 3 seconds. Neurological: General: No focal deficit present. Mental Status: He is alert. Psychiatric: Mood and Affect: Mood normal. Behavior: Behavior normal. Thought Content: Thought content normal. Judgment: Judgment normal. ASSESSMENT AND PLAN: No follow-ups on file. Problem List Items Addressed This Visit Primary hypertension Please check blood pressure daily and record DASH diet Limit caffeine Take medication as directed Contact office if chest pain, pressure, dizziness, shortness of breath, swelling legs Recommend slow position changes Current meds: bisoprolol, amlodipine Type 2 diabetes mellitus with kidney complication, [...] meds: jardiance, gimepiride, statin A1c 7.0% 11/28/24 Primary malignant neuroendocrine neoplasm of duodenum (HCC) Class 1 obesity with serious comorbidity in adult Discussed with patient their BMI (actual, verses recommended). We have also discussed lifestyle modifications: attempts to perform physical activity as chronic conditions allow, also to monitor dietary intake: increasing protein/fruits/veggies and lowering carb intake (unless contraindicated). Limit sodas, juices, and sugary drinks. LLQ pain Checked labs and xray at last appt Treated for suspected diverticulitis, sxs resolved Diverticulitis Treated with atb, sxs resolved Bradycardia - Primary No current sxs , at HR that he has, we discussed that despite asymptomatic we will send to hospital 911 Squad comes to medicinal plant picker pt, report given Sent with last office note, for med list etc I have reassessed the pt: HR 34, BP 120/72 Skin is pink, warm, and dry Associated Problem(s): Diverticulitis Treated with atb, sxs resolved Associated Problem(s): Type 2 diabetes mellitus with [...] meds: jardiance, gimepiride, statin A1c 7.0% 11/28/24 Associated Problem(s): Class 1 obesity with serious comorbidity in adult Discussed with patient their BMI (actual, verses recommended). We have also discussed lifestyle modifications: attempts to perform physical activity as chronic conditions allow, also to monitor dietary intake: increasing protein/fruits/veggies and lowering carb intake (unless contraindicated). Limit sodas, juices, and sugary drinks. Associated Problem(s): LLQ pain Checked labs and xray at last appt Treated for suspected diverticulitis, sxs resolved documented in this encounter [facility] 11-30-2024 History of Present illness Narrative Associated Order(s): L Inj/Asp: L glenohumeral Post-Procedure Diagnose(s): Left rotator cuff tear arthropathy Images from the original note were not included. Orthopedic Office note: NAME: Yusef Car : 1950 (EST PT) RECHECK LT [...] PRIOR TO INJ- PAIN LATERAL SHOULDER- GOOD ROM/STRENGTH-+TYLENOL - PT IS LT HAND DOMINANT Physical Exam General Appearance: Normal. Respiratory: No acute distress Cardiovascular: Radial pulse is 2+. Musculoskeletal: Healing abrasions from recent yard work are noted on the forearm. Well-healed arthroscopic portals and minimal prominence of the AC joint are observed. Near full range of motion with internal rotation to L2, experiencing pain only at the end range of motion and slight crepitus with certain movements. Strength is rated as 5 out of 5 in the deltoid, 4 out of 5 in the supraspinatus, 5 out of 5 in internal rotation, and [...] neurovascular intact s/p injection. . ( Codes 22532) Procedure, treatment alternatives, risks and benefits explained, [...] requiring urgent evaluation. Visit was preformed using [employer] transport pilot speech recognition. documented in this encounter [facility] 11-28-2024 History of Present illness Narrative Associated Problem(s): Diverticulosis of sigmoid colon Augmentin BID for 10 days Check labs and xray Fu in 2 weeks Advised of s/s of need for ER Associated Problem(s): LLQ pain Abd xray Labs: cbc, sed rate, chem 14, UA w micro and urine culture Suspect diverticulitis Last night fever 100.4 Pt had the pain on thursday in the lower quads and went up the left abd quad, Thursday he had the fever and chills. Pt states that the pain does not feel as bad today as it did. Pt states he has had regular Bms- he did have some slight constipation over the weekend. Pt states he had several regular stools yesterday. He takes mirelax daily. Pt states he has had a loss appetite since son's passing last September he does not eat much and has noticed weight loss. Pt states that his abdominal pain was consistently at a 5-7 on the pain scale and he would have random shooting pain going up to a 8-9 Light breakfast. No alcohol consumption. Images from the original note were not included. Yusef Car is a 74 y.o. male presents with chief complaint of Abdominal Pain and Fever HPI: Last night fever 100.4 Pt had the pain on thursday in the lower quads and went up the left abd quad, Thursday he had the fever and chills. Pt states that the pain does not feel as bad today as it did. Pt states he has had regular Bms- he did have some slight constipation over the weekend. Pt states he had several regular stools yesterday. He takes mirelax daily. Pt states he has had a loss appetite since son's passing last September he does not eat much and has noticed weight loss. Pt states that his abdominal pain was consistently at a 5-7 on the pain scale and he would have random shooting pain going up to a 8-9 Light breakfast. No alcohol consumption. Abdominal Pain This is a new problem. The current episode started in the past 7 days. The onset quality is gradual. The problem occurs daily. The problem has been unchanged. The pain is located in the LLQ. The pain is at a severity of 8/10. The pain is moderate. The quality of the pain is aching and sharp. The abdominal pain does not radiate. Associated symptoms include constipation, a fever and weight loss. Pertinent negatives include no anorexia, diarrhea, dysuria, hematochezia, hematuria, melena or vomiting. The pain is aggravated by palpation. The pain is relieved by Nothing. He has tried nothing for the symptoms. There is no history of colon cancer, Crohn's disease, irritable bowel syndrome or ulcerative colitis. SUBJECTIVE: MEDICATIONS: Current Outpatient Medications Medication Instructions allopurinol (ZYLOPRIM) 300 mg, Oral, Daily amLODIPine (NORVASC) 5 mg, Daily PRN amoxicillin-clavulanate (Augmentin) 875-125 MG tablet 875 mg, Oral, 2 times daily bisoprolol (ZEBETA) 10 mg, Oral, Every morning [...] A MEAL (DO NOT CRUSH OR CHEW) rosuvastatin (CRESTOR) 20 mg, Oral, Daily tamsulosin (FLOMAX) 0.4 mg, Daily ALLERGIES: Allergies Allergen Reactions Ciprofloxacin Other Reaction(s): ?change in mental status Erythromycin GI intolerance and Other Lisinopril Cough REVIEW OF SYMPTOMS: Review of Systems Constitutional: Positive for fever and weight loss. Negative for activity change, appetite change and unexpected weight change. HENT: Negative for ear pain, nosebleeds, sneezing, trouble swallowing and voice change. Eyes: Negative for pain, discharge and visual disturbance. Respiratory: Negative for apnea, chest tightness and wheezing. Cardiovascular: Negative for leg swelling. Gastrointestinal: Positive for abdominal pain and constipation. Negative for abdominal distention, anorexia, blood in stool, diarrhea, hematochezia, melena and vomiting. Genitourinary: Negative for decreased urine volume, difficulty urinating, dysuria and hematuria. Skin: Negative for color change. Neurological: Negative [...] 1963 Anemia Arthritis 1999 Campylobacter diarrhea Cancer (HCC) 2020 Decreased testosterone [...] 2004 SEPTOPLASTY 2008 TUMOR REMOVAL 01/2021 Duodenum neuroendocrine tumor family history includes Breast cancer in his sister; Cancer in his brother; Diabetes in his father and son; Hearing loss in his father; Heart disease in his father and mother; Heart failure in his mother; Hypertension in his father; Meniere's disease in his brother; multinodular goiter in his brother. OBJECTIVE: Visit Vitals BP 118/74 (BP Location: Left arm, Patient Position: Sitting, BP Cuff Size: Adult long) Pulse 71 Temp 98.5 F (Temporal) Resp 18 Wt 226 lb 3.2 oz SpO2 96% BMI 32.46 kg/m Smoking Status Former BSA 2.26 m Physical Exam Vitals and nursing note reviewed. Constitutional: Appearance: Normal appearance. He is obese. He is not ill-appearing. HENT: Head: Normocephalic. Right Ear: External ear [...] is normal. Breath sounds: Normal breath sounds. No wheezing or rhonchi. Abdominal: General: Bowel sounds are normal. There is no distension. Palpations: Abdomen is soft. There is no mass. Tenderness: There is abdominal tenderness (LLQ). Musculoskeletal: Cervical back: Neck supple. Right lower leg: No edema. Left lower leg: No edema. Lymphadenopathy: Cervical: No cervical adenopathy. Skin: General: Skin is warm and dry. Capillary Refill: Capillary refill takes 2 to 3 seconds. Neurological: General: No focal deficit present. Mental Status: He is alert. Psychiatric: Mood and Affect: Mood normal. Behavior: Behavior normal. Thought Content: Thought content normal. Judgment: Judgment normal. ASSESSMENT AND PLAN: Follow up in about 2 weeks (around 12/12/2024) for Recheck. Problem List Items Addressed This Visit Diverticulosis of sigmoid colon - Primary Augmentin BID for 10 days Check labs and xray Fu in 2 weeks Advised of s/s of need for ER Relevant Orders CBC and differential Sedimentation rate, automated Comprehensive metabolic panel Urinalysis with reflex microscopic (clean catch) Urine culture (clean catch) LLQ pain Abd xray Labs: cbc, sed rate, chem 14, UA w micro and urine culture Suspect diverticulitis Relevant Orders CBC and differential Sedimentation rate, automated Comprehensive metabolic panel Urinalysis with reflex microscopic (clean catch) Urine culture (clean catch) Diverticulitis Relevant Medications amoxicillin-clavulanate (Augmentin) 875-125 MG tablet documented in this encounter [facility] 11-28-2024 Instructions Tomeka Rosado NP - 11/28/2024 2:00 PM EDT Get labs completed and xray Also if pain worsens go to ER documented in this encounter [facility] 11-22-2024 Note [facility]rophys[facility] Consult Note Reason for visit: PAC/PVC 11/22/2024 Patient here for 6 mo follow up orthostatic hypotension, palpitations, and nonsustained atrial tachycardia. He wore 30 day event monitor in Jun 2024 after questionable episode of complete heart block per anesthesia at following EGD. He states he did not get lightheaded upon standing up for orthostatic BP. 30-day event monitor performed revealed multiple nonsustained episodes of SVT the longest of which was for about 5 seconds seen on 07/23/2024 as well as occasional PVCs. No episodes of A-fib or sustained VT seen Review of Systems Cardiovascular: Positive for leg swelling (end of day). Neurological: Positive for light-headedness (upon standing up). All other systems reviewed and are negative. 05/31/24 Patient here for 6 mo follow up palpitations, nonsustained atrial tachycardia, and orthostatic hypotension. Had routine labs w/ lipid panel in Mar 2024. Chest pain has resolved. Still gets lightheaded upon standing up too quickly. States that he normally drinks 3-4 water bottles daily, has not been hydrating as well recently. He takes half of amlodipine tablet as needed for high blood pressure, states he has had to do that only 3 times in the past year. Other sosa he states his blood pressure runs between 130-140's at home. 10/27/23 Table study was negative for any [...] for Syncope HPI: Yusef Car is a 74 y.o. year old with past medical history of syncope was previously seen by cardiology team including Yamilet Cottrell and ordered a stress test which was [...] AM PMH: Past Medical History: Diagnosis Date Abnormal ECG Arrhythmia CKD (chronic kidney disease) stage 3, GFR 30-59 ml/min ([facility]) Diabetes 1.5, managed as t (more content not included)... [facility] 10-10-2024 History of Present illness Narrative Associated Problem(s): Diabetic polyneuropathy associated with type 2 diabetes mellitus ([facility]) Freq foot checks proper fitting shoes, socks Last office visit: 07/13/24 Hypertension: has wrist cuff does not often check when he does he runs 130/76 Hyperlipidemia: no swelling Diabetes: does not check daily, couple days ago his fasting sugar was 130 At times it will be in the 150 Chronic kidney failure: ER 08/23: left ankle pain: left ankle sprain: pt has arthritis in the ankle before. Pt states he always has pain in the ankle ranging form 2-3 on the pain scale Pt gets Cortizone inj for his left shoulder about every 4 months. 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 Pt had a heart monitor done in June Sees sketcher ferdinand ogden in [place] Images from the original note were not included. Yusef Car is a 74 y.o. male presents with chief complaint of Diabetes, Hyperlipidemia, and Hypertension HPI: Diabetes He presents for his follow-up diabetic visit. He has type 2 diabetes mellitus. His disease course has been stable. There are no hypoglycemic associated symptoms. Pertinent negatives for hypoglycemia include no dizziness, nervousness/anxiousness, seizures or tremors. Headaches: occ.Associated symptoms include foot paresthesias, polydipsia and polyuria. Pertinent negatives for diabetes include no blurred vision, no chest pain and no visual change. There are no hypoglycemic complications. Symptoms are stable. Diabetic complications include peripheral neuropathy. Risk factors for coronary artery disease include diabetes mellitus, dyslipidemia, hypertension, obesity and sedentary lifestyle. Current diabetic treatment includes oral agent (dual therapy). An GODWIN inhibitor/angiotensin II receptor janet is not being taken. 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 Hypertension This is a chronic problem. The current episode started more than 1 year ago. The problem is unchanged. The problem is controlled. Pertinent negatives include no blurred vision, chest pain, malaise/fatigue, palpitations, peripheral edema or shortness of breath. Headaches: occ.There are no associated agents to hypertension. Risk factors for coronary artery disease include diabetes mellitus, dyslipidemia, male gender, obesity and sedentary lifestyle. Past treatments include beta blockers and diuretics. The current treatment provides significant improvement. There are no compliance problems. SUBJECTIVE: MEDICATIONS: Current Outpatient Medications Medication Instructions allopurinol (Zyloprim) 300 MG tablet amLODIPine (NORVASC) 5 mg, Daily PRN bisoprolol (ZEBETA) 10 mg, Oral, Every morning [...] A MEAL (DO NOT CRUSH OR CHEW) rosuvastatin (CRESTOR) 20 mg, Oral, Daily tamsulosin (FLOMAX) 0.4 mg, Daily ALLERGIES: Allergies Allergen Reactions Ciprofloxacin Other Reaction(s): ?change in mental status Erythromycin GI intolerance and Other Lisinopril Cough REVIEW OF SYMPTOMS: Review of Systems Constitutional: Negative for activity change, appetite change, malaise/fatigue and unexpected weight change. HENT: Negative for ear pain, nosebleeds, sneezing, trouble swallowing and voice change. Eyes: Negative for blurred vision, pain, discharge and visual disturbance. Respiratory: Negative for apnea, chest tightness, shortness of breath and wheezing. Cardiovascular: Negative for chest pain, palpitations and leg swelling. Gastrointestinal: Negative for abdominal distention, blood in stool, constipation and diarrhea. Genitourinary: Negative for decreased urine volume, difficulty urinating, dysuria and hematuria. Skin: Negative for color change. Neurological: Positive for numbness. Negative for dizziness, tremors and seizures. Headaches: occ. Psychiatric/Behavioral: Negative for agitation, decreased concentration, hallucinations, self-injury and suicidal ideas. The patient is not nervous/anxious. Hematological: Negative for adenopathy. Does not bruise/bleed easily. Endocrine: Positive for polydipsia and polyuria. Negative for cold intolerance and heat intolerance. Allergic/Immunologic: Negative for environmental allergies and food allergies. PAST MEDICAL HISTORY Past Medical History: Diagnosis Date Actinic keratosis 2 left hand Allergic 1963 Allergic rhinitis 1962 Anemia Arthritis 1999 Campylobacter diarrhea Cancer (CMS/HCC) [...] 2004 SEPTOPLASTY 2008 TUMOR REMOVAL 01/2021 Duodenum neuroendocrine tumor family history includes Breast cancer in his sister; Cancer in his brother; Diabetes in his father and son; Hearing loss in his father; Heart disease in his father and mother; Heart failure in his mother; Hypertension in his father; Meniere's disease in his brother; multinodular goiter in his brother. OBJECTIVE: Visit Vitals BP 110/80 (BP Location: Right arm, Patient Position: Sitting, BP Cuff Size: Adult long) Pulse 56 Temp 97.8 F (Temporal) Resp 18 Wt 230 lb 12.8 oz SpO2 98% BMI 33.12 kg/m Smoking Status Former BSA 2.28 m Physical Exam Vitals and nursing note reviewed. [...] Normal pulses. Heart sounds: Normal heart sounds. No murmur heard. Pulmonary: Effort: Pulmonary effort is normal. Breath sounds: Normal breath sounds. No wheezing or rhonchi. Abdominal: General: Bowel sounds are normal. Palpations: Abdomen is soft. There is no mass. Tenderness: There is no abdominal tenderness. Musculoskeletal: Cervical back: Neck supple. Right lower leg: No edema. Left lower leg: No edema. Lymphadenopathy: Cervical: No cervical adenopathy. Skin: General: Skin is warm and dry. Capillary Refill: Capillary refill takes 2 to 3 seconds. Neurological: General: No focal deficit present. Mental Status: He is alert. Psychiatric: Mood and Affect: Mood normal. Behavior: Behavior normal. Thought Content: Thought content normal. Judgment: Judgment normal. ASSESSMENT AND PLAN: No follow-ups on file. Problem List Items Addressed This Visit Diabetic polyneuropathy associated with type 2 diabetes mellitus (CMS/HCC) Freq foot checks proper fitting shoes, socks Primary hypertension ([facility]) Please check blood pressure daily and record DASH diet Limit caffeine Take medication as directed Contact office if chest pain, pressure, dizziness, shortness of breath, swelling legs Recommend slow position changes Current meds: bisoprolol, amlodipine prn Mixed hyperlipidemia ([facility]) On statin therapy Check labs yearly and prn dose changes Relevant Orders Uric acid RESOLVED: Morbid obesity ([facility]) Benign prostatic hyperplasia with lower urinary tract symptoms Currently taking tamsulosin Type 2 diabetes mellitus with kidney complication, without long-term current use of insulin ([facility]) - Primary Check blood sugars daily, notify if <70 [...] meds: jardiance, gimepiride, statin A1c: will order Relevant Orders Basic metabolic panel Urinalysis with reflex microscopic (clean catch) Microalbumin / creatinine, urine ratio Gastroesophageal reflux disease Recommendations: freq small meals, nothing to eat or drink at least 2 hours prior to bed, limit caffeine, alcohol, as well as spicy foods Meds to limit or avoid if possible: NSAIDS Elevate HOB if possible Current med: omeprazole Obesity (BMI 30-39.9) 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 We have also discussed lifestyle modifications: attempts to perform physical activity as chronic conditions allow, also to monitor dietary intake: increasing protein/fruits/veggies and lowering carb intake (unless contraindicated). Limit sodas, juices, and sugary drinks. Screening for prostate cancer Relevant Orders Hemoglobin A1c Associated Problem(s): Class 1 obesity with serious comorbidity in adult Discussed with patient their BMI (actual, verses recommended). We have also discussed lifestyle modifications: attempts to perform physical activity as chronic conditions allow, also to monitor dietary intake: increasing protein/fruits/veggies and lowering carb intake (unless contraindicated). Limit sodas, juices, and sugary drinks. Associated Problem(s): Mixed hyperlipidemia ([facility]/HCC) On statin therapy Check labs yearly and prn dose changes Associated Problem(s): Gout Current meds: allopurinol Check labs yearly and prn dose changes or changes in sxs Associated Problem(s): Type 2 diabetes mellitus with kidney complication, without long-term current use of insulin ([facility]) Check blood sugars daily, notify if <70 [...] meds: jardiance, gimepiride, statin A1c: will order Associated Problem(s): Benign prostatic hyperplasia with lower urinary tract symptoms Currently taking tamsulosin Follows with urology Associated Problem(s): Primary malignant neuroendocrine neoplasm of duodenum (CMS/HCC) Follows with oncology Associated Problem(s): Gastroesophageal reflux disease Recommendations: freq small meals, nothing to eat or drink at least 2 hours prior to bed, limit caffeine, alcohol, as well as spicy foods Meds to limit or avoid if possible: NSAIDS Elevate HOB if possible Current med: omeprazole Associated Problem(s): Primary hypertension (CMS/HCC) Please check blood pressure daily and record DASH diet Limit caffeine Take medication as directed Contact office if chest pain, pressure, dizziness, shortness of breath, swelling legs Recommend slow position changes Current meds: bisoprolol, amlodipine prn documented in this encounter [facility] 10-10-2024 Instructions Tomeka Rosado NP - 10/10/2024 8:40 AM EDT Labs: fasting documented in this encounter [facility] 08-12-2024 History of Present illness Narrative Associated Order(s): L Inj/Asp: L glenohumeral Post-Procedure Diagnose(s): Left rotator cuff tear arthropathy Images from the original note were not included. HISTORY OF PRESENT ILLNESS: EST PT Yusef Car is an 74 y.o. @ male. (EST PT) WITH LT SHOULDER PAIN - LAST INJ 04/13/24 (4 MTHS); NOTES GOOD RELIEF ~6WKS XRAY LT SHOULDER EPIC 04/13/24 EPIC DEPO INJECTION 04/13/24 HX LT SHOULDER SCOPE (RCR) PER DR LICEA ~2003 INCREASE PAIN ~3WKS- PAIN POSTERIOR/LATERAL SHOULDER- +CRACKING- CONTINUES HEP; GOOD RELIEF- +WEAKNESS- ACHINESS AT REST- +WAKES HS- +TYLENOL/ALEVE- PT IS LT HAND DOMINANT ALLERGIES: Allergies Allergen Reactions Azithromycin Ciprofloxacin Other [...] A MEAL (DO NOT CRUSH OR CHEW) rosuvastatin (CRESTOR) 20 mg, Oral, Daily tamsulosin (FLOMAX) 0.4 mg, Daily PHYSICAL EXAM: Shoulder Musculoskeletal Exam Inspection Left Left shoulder inspection is normal. Ecchymosis: none Peripheral edema: none Atrophy: none Masses: none Palpation Left Crepitus: mild Increased warmth: none Tenderness: present Anterior shoulder: mild Posterior shoulder: mild AC joint: mild Rotator cuff: mild Greater tuberosity: mild Trapezius: none Medial scapula: mild Superior pole of scapula: mild Inferior pole of scapula: none Bicipital groove: none Proximal biceps: none Distal biceps: none Lateral arm: mild Elbow: none Range of Motion Right Right shoulder active abduction: + pain passing 90 degrees. Left Left shoulder range of motion is normal. Active ROM: pain. Passive ROM: pain. Active forward elevation: 160. Passive forward elevation: 180. Shoulder active abduction: 170. Passive abduction: 180. Active external rotation at side: 70. Passive external rotation at side: 80. Internal rotation: T12. Strength Left External rotation: 4-/5. External rotation is affected by pain. Internal rotation: 5/5. Abduction: 3/5. Abduction is affected by pain. Biceps: 5/5. Triceps: 5/5. Neurovascular Left Radial pulse: normal and 2+ Capillary refill: <3 sec Axillary nerve sensory distribution: normal Scapula Left Left shoulder scapula is normal. Position: normal Winging: none Special Tests Left Rotator Cuff Signs Neer's test: positive Shea test: positive Painful arc test: positive Biceps/fabby Signs Speed's test: negative General Constitutional: appears stated age Neurological: alert and oriented x3 Vitals: There is no height or weight on file to calculate BMI. Tobacco Use: Medium Risk (08/12/2024) Patient History Smoking Tobacco Use: Former Smokeless Tobacco Use: Never Passive Exposure: Never Alcohol Use: Not At Risk (07/06/2024) AUDIT-C Frequency of Alcohol Consumption: Monthly or less Average Number of Drinks: 1 or 2 Frequency of Binge Drinking: Never IMAGING: L Inj/Asp: L glenohumeral on 08/12/2024 9:17 AM Indications: pain and diagnostic evaluation Details: 25 G needle, ultrasound-guided posterior approach Medications: 1 mL bupivacaine PF 0.5 %; 40 mg methylPREDNISolone Acetate 20 MG/ML The shoulder was prepped with isopropyl alcohol. Allowed time to fully dry. Under ultrasound guidance the glenohumeral joint was identified. A plain was established to avoid any neurovascular structures or lung, a 25 G needle was placed into the joint under ultrasound guidance and image captured to patients chart demonstrating proper placement in glenohumeral joint. I then injected 40 mg depomedrol and 1 ml of 0.5% bupivacaine Pt tolerated this well and neurovascular intact s/p injection. . ( Codes 76970-TF) Procedure, treatment alternatives, risks and benefits explained, specific risks discussed. Consent was given by the patient. Patient was prepped and draped in the usual sterile fashion. Orders Placed This Encounter Procedures L Inj/Asp This order was created via procedure documentation ASSESSMENT: ICD-10-CM 1. Acute pain of left shoulder M25.512 2. Left rotator cuff tear arthropathy M75.102 M12.812 Assessment & Plan 1. Left shoulder pain. He has a history of rotator cuff arthropathy and reports 1 to 2-month relief with prior subacromial injection. Surgical and nonsurgical treatment options were discussed, but he does not express interest in shoulder replacement surgery. Activity modifications and factors that can exacerbate his shoulder pain were also discussed. He is willing to try an ultrasound-guided injection today at the bedside. If he gets acceptable relief, he will be seen back in 4 months for a potential repeat injection. Follow-up The patient will follow up in 4 months. PROCEDURE An ultrasound-guided injection was administered into the left shoulder at the bedside today. Questions answered in laymen terms at the bedside. The diagnosis, home exercise plan and any ongoing restrictions/ recommendations reviewed. If unable to be reached in office, I recommend evaluation at nearest Emergency Room if any symptoms worsened or new symptoms develop for requiring urgent evaluation. documented in this encounter [facility] 07-13-2024 History of Present illness Narrative Associated Problem(s): Stage 3a chronic kidney disease (HCC) (CMS/HCC) Stable. Follows with Nephrology. Most recent Creatinine 1.22,/ eGFR 58. Avoid Nephrotoxic Agents. Monitor closely. Associated Problem(s): Mixed hyperlipidemia (CMS/HCC) Currently taking Rosuvastatin 20mg Cardiology Manages Denies any myalgias. Most recent Lipid Panel done 03/2024- WNL. Continue current regimen. Associated Problem(s): Type 2 diabetes mellitus with kidney complication, without long-term current use of insulin ([facility]/HCC) Currently taking glimeperide 4mg Jardiance 25mg Most [...] on home glucose monitoring noted. Associated Problem(s): Primary hypertension (CMS/HCC) Currently taking bisoprolol 5mg BID Losartan 100mg Furosemide 20mg Cardiology manages very closely. Checks BP at home; Averages are 130/85. Denies orthostatic changes, dizziness, cough, shortness of breath, swelling in extremities. Continue current regime as directed by Cardiology Given BP log, advised pt to record BP and bring log back with them to next visit. Images from the original note were not included. Subjective Patient ID: Yusef Car is a 74 y.o. male who presents for Diabetes. HPI Specialists: Cardiologuy- [facility] [[email or web address]] GI- Dr. Magaña Urology- Dr. Justice HTN: Currently taking bisoprolol 5mg BID Losartan 100mg Furosemide 20mg Cardiology manages very closely. Checks BP at home; Averages are 130/85. Denies orthostatic changes, dizziness, cough, shortness of breath, swelling in extremities. Continue current regime as directed by Cardiology Given BP log, advised pt to record BP and bring log back with them to next visit. DMII: Currently taking glimeperide 4mg Jardiance 25mg Most recent labs: hemoglobin A1C 7.7% Increase from 7.2%. Average FSBS range from BGs range between 130 and 140 No episode of hypoglycemia No medication adverse [...] Panel done 03/2024- WNL. Continue current regimen. Component Ref Range & Units 3 mo ago (04/14/24) 3 mo ago (04/14/24) 3 mo ago (04/14/24) 9 mo ago (10/12/23) TRIGLYCERIDES <=150 mg/dL 106 140 R 8.8 Low R 14.6 Low R CHOLESTEROL <=200 mg/dL 114 4.3 R 0.3 R 0.3 R HDL CHOLESTEROL 40 - 60 mg/dL 36 Low 16.9 R 11.6 High R 7.1 High R Comment: > or =60 mg/dl - LOW CARDIOVASCULAR RISK <40 mg/dl - HIGH CARDIOVASCULAR RISK LDL CHOLESTEROL CALCULATED mg/dL 57.0 149 High R 1.2 R 1.4 R Comment: <100 mg/dl OPTIMAL 100-129 mg/dl NEAR OR ABOVE OPTIMAL 130-159 mg/dl BORDERLINE HIGH 160-189 mg/dl HIGH >190 mg/dl VERY HIGH VLDL CHOLESTEROL mg/dL 21.2 0.4 R 0.7 R 0.7 R CHOL HDL RATIO 3.2 14 Low R 0.04 High R 0.03 R Comment: 3.3 - 4.4 LOW RISK 4.4 - 7.1 AVERAGE RISK 7.1 - 11.0 MODERATE RISK >11.0 HIGH RISK ALANINE AMINOTRANSFERASE 17 R ALKALINE PHOSPHATASE 137 High R TOTAL PROTEIN 7.4 R ALBUMIN LEVEL 3.4 R ALBUMIN GLOBULIN RATIO 0.9 Resulting Agency [facility] CKDIII: Stable. Most recent Creatinine 1.22,/ eGFR 58. Avoid Nephrotoxic Agents. Monitor closely. Review of Systems Constitutional: Negative for activity [...] flank pain, frequency, hematuria and urgency. Musculoskeletal: Negative for arthralgias, gait problem, joint swelling and myalgias. Skin: Negative for rash. Neurological: Negative for dizziness, tremors, syncope, weakness, light-headedness and headaches. Psychiatric/Behavioral: Negative for decreased concentration and suicidal ideas. The patient is not nervous/anxious. Hematological: Does not bruise/bleed easily. Endocrine: Negative for cold intolerance, heat intolerance, polydipsia, polyphagia and polyuria. Objective Physical Exam Vitals reviewed. Constitutional: Appearance: Normal appearance. HENT: Right Ear: Tympanic membrane normal. Left Ear: [...] sounds are normal. Palpations: Abdomen is soft. Skin: Capillary Refill: Capillary refill takes less than 2 seconds. Neurological: Mental Status: He is alert and oriented to person, place, and time. Assessment/Plan Problem List Items Addressed This Visit Primary hypertension (CMS/HCC) - Primary Currently taking bisoprolol 5mg BID Losartan 100mg Furosemide 20mg Cardiology manages very closely. Checks BP at home; Averages are 130/85. Denies orthostatic changes, dizziness, cough, shortness of breath, swelling in extremities. Continue current regime as directed by Cardiology Given BP log, advised pt to record BP and bring log back with them to next visit. Mixed hyperlipidemia ([facility]) Currently taking Rosuvastatin 20mg Cardiology Manages Denies any myalgias. Most recent Lipid Panel done 03/2024- WNL. Continue current regimen. Type 2 diabetes mellitus with kidney complication, without long-term current use of insulin ([facility]) Currently taking glimeperide 4mg Jardiance 25mg Most [...] hypoglycemia/hyperglycemia on home glucose monitoring noted. Relevant Orders POCT glycosylated hemoglobin (Hb A1C) docked device (Completed) Stage 3a chronic kidney disease (HCC) (CMS/HCC) Stable. Follows with Nephrology. Most recent Creatinine 1.22,/ eGFR 58. Avoid Nephrotoxic Agents. Monitor closely. documented in this encounter [facility] 07-13-2024 Instructions Miriam Gatica NP - 07/13/2024 8:30 AM EST Education: Check blood sugars daily, notify if [...] and simple sugars. documented in this encounter [facility] 06-30-2024 Attending History and physical note H&P reviewed. The patient was examined and there are no changes to the H&P. Source Note - Neftali Knowles MD - 06/21/2024 9:40 AM EST Images from the original note were not included. Patient ID: Yusef Car is a 74 y.o. male. Referring Physician: No referring provider defined for this encounter. Primary Care Provider: Shaikh Jamie MD Chief Complaint: Duodenal neuroendocrine tumor Interval History: 73 years old gentleman from [place], [place] who has been referred to me from [facility]. The patient complained of acid reflux [...] vomiting, changes in bowels, flushing, or wheezing. Subjective Patient is feeling well. Denies abdominal pain, nausea or vomiting. No new symptoms. Objective BSA: There is no height or weight on file to calculate BSA. There were no vitals taken for this visit. Yusef Car reports that he quit smoking about 41 years ago. His smoking use included cigarettes. He has never used smokeless tobacco. He reports current alcohol use. He reports no history of drug use. ROS: All 14 systems have been reviewed and were negative except for the HPI. Physical Exam: General: Appears well and in NAD Eyes: PERRL, EOMI, clear sclera ENMT: mucous membranes moist, no apparent injury, no lesions seen Head/Neck: Neck supple, no apparent injury, thyroid without mass or tenderness, No JVD, trachea midline, Thorax: Patent airways, CTAB, normal breath sounds with good chest expansion, thorax symmetric Cardiovascular: Regular, rate and rhythm, no murmurs, 2+ equal pulses of the extremities, normal S 1and S 2 Gastrointestinal: Nondistended, soft, non-tender, no rebound tenderness or guarding, no masses palpable, no organomegaly, +BS Musculoskeletal: ROM intact, no joint swelling, normal strength Extremities: normal extremities, no cyanosis edema, contusions or wounds, no clubbing Neurological: alert and oriented x3, intact senses, motor, response and reflexes, normal strength Lymphatic: No significant lymphadenopathy Psychological: Appropriate mood and behavior Skin: Warm and dry, no lesions, no rashes Performance Status: Asymptomatic Lab Results: I have reviewed these laboratory results: Lab Results Component Value Date WBC 9.6 12/28/2023 HGB 13.4 (L) 12/28/2023 HCT 43.0 12/28/2023 MCV 89 12/28/2023 PLT 365 12/28/2023 Chemistry Lab Results Component Value Date/Time NA 138 12/28/2023 0841 K 5.0 12/28/2023 0841 CL 104 12/28/2023 0841 CO2 27 12/28/2023 0841 BUN 23 12/28/2023 0841 CREATININE 1.18 12/28/2023 0841 Lab Results Component Value Date/Time CALCIUM 9.6 12/28/2023 0841 ALKPHOS 94 12/28/2023 0841 AST 13 12/28/2023 0841 ALT 15 12/28/2023 0841 BILITOT 0.4 12/28/2023 0841 No results found for: TSH , Z5EPALY , O3UYJYL , THYROIDPAB Radiology Result: I have reviewed the latest Imaging in PACS and the findings are noted in this note. I discussed the results of the latest imaging with the patient. All previous imaging were reviewed at the time it was completed. Full records are available in the EMR for review as well. === 05/26/23 === CT CHEST ABDOMEN PELVIS W IV CONTRAST - Impression - CHEST: 1. Nodule superior segment left lower [...] Juanjose Walters 05/27/2023 11:47 AM Dictation workstation: [id number] === 01/11/21 === - Impression - 1. Tiny cyst in hepatic segment RED. No suspicious hepatic lesions identified otherwise. 2. 2 cm left adrenal adenoma. Smaller myelolipomas identified on CT are not well characterized on motion degraded MR. 3. Left renal cysts. 4. No findings of metastatic disease of the abdomen. CT chest abdomen pelvis w IV contrast Result Date: 05/27/2023 Impression: CHEST: 1. Nodule superior segment left lower [...] Juanjose Walters 05/27/2023 11:47 AM Dictation workstation: [id number] Pathology Results: I have reviewed the full pathology report recorded in the EMR. The pertinent portions indicating diagnosis are listed here in the note. for details please refer to the full report recorded in the EMR. Assessment and Plan: Localized duodenal neuroendocrine tumor (G1) 73 years old gentleman from [place], [place] who has been referred to me from [facility]. The patient complained of acid reflux [...] neuroendocrine tumor with Ki-67 less than 1%. According to him he did not have any staging imaging. He still have intermittent epigastric pain which is unrelated to specific type of food, he denies any nausea or vomiting, or change in bowel movement. He denies any carcinoid features. The patient has been recommended to go to [place] for surgical consultation. I discussed with the patient before with him that we need to have staging imaging including CT abdomen and pelvis, and PET-Ga68 to exclude metastatic disease. Both have shown only uptake within the duodenum with small area in segment 4 of the liver which looks cyst, there is also prostatic uptake which can be either prostatitis or concern for malignancy and we sent to follow up with urology for follow up . Serum gastrin is normal and serum PSA is normal. Pt had complete endoscopic resection on 01/23/2021. Liver MRI confirmed the area in the liver is cyst and no lesions. Pt had follow up endoscopy on 05/01/2021 and 04/2022 excluded recurrent disease. Another EGD on 05/2023 showed Single 8 mm nodule was visualized in the duodenal bulb; performed cold forceps biopsy with partial removal; and biopsy was negative. Follow up EGD on 12/29/2023: Showed only Moderate edematous and erythematous mucosa with exudate in the body of the stomach and antrum, consistent with gastritis. No evidence of NETs. Today: Yusef presents with his for a follow up exam. Overall, he feels well. He is eating and drinking okay. Denies any nausea, vomiting, changes in bowels, flushing, or wheezing. Plan: 1- Endoscopic follow up in 12 mos 2-Will RTC in 1 year for follow up Mr. Yusef Car , It was a pleasure talking to you today. Our offices will be reaching out to you to make all the appointments. I am always available at the phone numbers listed below for an earlier appointment should you wish one. In case of an emergency please dial 911 or report to your nearest Emergency Room. For all other questions, please do not hesitate to reach out to us at the number listed below. Thank you for choosing [facility]. We appreciate your visit. Neftali Knowles M.D. Manager Diversity and Director of the Neuroendocrine Tumor Program Gastrointestinal Medical Oncology Department of Hematology and Oncology [facility], [place] [address] Phone (Office): [phone] Email: [email or web address] Learn more about [facility] Comprehensive Neuroendocrine Tumor Program: Click Here Learn more about [place] Neuroend[employer] Society: [email or web address] [facility] Work Phone: 06-30-2024 History and physical note H&P reviewed. The patient was examined and there are no changes to the H&P. Source Note - Neftali Knowles MD - 06/21/2024 9:40 AM EST Images from the original note were not included. Patient ID: Yusef Car is a 74 y.o. male. Referring Physician: No referring provider defined for this encounter. Primary Care Provider: Shaikh Jamie MD Chief Complaint: Duodenal neuroendocrine tumor Interval History: 73 years old gentleman from [place], [place] who has been referred to me from [facility]. The patient complained of acid reflux [...] vomiting, changes in bowels, flushing, or wheezing. Subjective Patient is feeling well. Denies abdominal pain, nausea or vomiting. No new symptoms. Objective BSA: There is no height or weight on file to calculate BSA. There were no vitals taken for this visit. Yusef Car reports that he quit smoking about 41 years ago. His smoking use included cigarettes. He has never used smokeless tobacco. He reports current alcohol use. He reports no history of drug use. ROS: All 14 systems have been reviewed and were negative except for the HPI. Physical Exam: General: Appears well and in NAD Eyes: PERRL, EOMI, clear sclera ENMT: mucous membranes moist, no apparent injury, no lesions seen Head/Neck: Neck supple, no apparent injury, thyroid without mass or tenderness, No JVD, trachea midline, Thorax: Patent airways, CTAB, normal breath sounds with good chest expansion, thorax symmetric Cardiovascular: Regular, rate and rhythm, no murmurs, 2+ equal pulses of the extremities, normal S 1and S 2 Gastrointestinal: Nondistended, soft, non-tender, no rebound tenderness or guarding, no masses palpable, no organomegaly, +BS Musculoskeletal: ROM intact, no joint swelling, normal strength Extremities: normal extremities, no cyanosis edema, contusions or wounds, no clubbing Neurological: alert and oriented x3, intact senses, motor, response and reflexes, normal strength Lymphatic: No significant lymphadenopathy Psychological: Appropriate mood and behavior Skin: Warm and dry, no lesions, no rashes Performance Status: Asymptomatic Lab Results: I have reviewed these laboratory results: Lab Results Component Value Date WBC 9.6 12/28/2023 HGB 13.4 (L) 12/28/2023 HCT 43.0 12/28/2023 MCV 89 12/28/2023 PLT 365 12/28/2023 Chemistry Lab Results Component Value Date/Time NA 138 12/28/2023 0841 K 5.0 12/28/2023 0841 CL 104 12/28/2023 0841 CO2 27 12/28/2023 0841 BUN 23 12/28/2023 0841 CREATININE 1.18 12/28/2023 0841 Lab Results Component Value Date/Time CALCIUM 9.6 12/28/2023 0841 ALKPHOS 94 12/28/2023 0841 AST 13 12/28/2023 0841 ALT 15 12/28/2023 0841 BILITOT 0.4 12/28/2023 0841 No results found for: TSH , P9TUDIU , W2JKJSC , THYROIDPAB Radiology Result: I have reviewed the latest Imaging in PACS and the findings are noted in this note. I discussed the results of the latest imaging with the patient. All previous imaging were reviewed at the time it was completed. Full records are available in the EMR for review as well. === 05/26/23 === CT CHEST ABDOMEN PELVIS W IV CONTRAST - Impression - CHEST: 1. Nodule superior segment left lower [...] Juanjose Walters 05/27/2023 11:47 AM Dictation workstation: [id number] === 01/11/21 === - Impression - 1. Tiny cyst in hepatic segment RED. No suspicious hepatic lesions identified otherwise. 2. 2 cm left adrenal adenoma. Smaller myelolipomas identified on CT are not well characterized on motion degraded MR. 3. Left renal cysts. 4. No findings of metastatic disease of the abdomen. CT chest abdomen pelvis w IV contrast Result Date: 05/27/2023 Impression: CHEST: 1. Nodule superior segment left lower [...] Juanjose Walters 05/27/2023 11:47 AM Dictation workstation: [id number] Pathology Results: I have reviewed the full pathology report recorded in the EMR. The pertinent portions indicating diagnosis are listed here in the note. for details please refer to the full report recorded in the EMR. Assessment and Plan: Localized duodenal neuroendocrine tumor (G1) 73 years old gentleman from [place], [place] who has been referred to me from [facility]. The patient complained of acid reflux [...] neuroendocrine tumor with Ki-67 less than 1%. According to him he did not have any staging imaging. He still have intermittent epigastric pain which is unrelated to specific type of food, he denies any nausea or vomiting, or change in bowel movement. He denies any carcinoid features. The patient has been recommended to go to [place] for surgical consultation. I discussed with the patient before with him that we need to have staging imaging including CT abdomen and pelvis, and PET-Ga68 to exclude metastatic disease. Both have shown only uptake within the duodenum with small area in segment 4 of the liver which looks cyst, there is also prostatic uptake which can be either prostatitis or concern for malignancy and we sent to follow up with urology for follow up . Serum gastrin is normal and serum PSA is normal. Pt had complete endoscopic resection on 01/23/2021. Liver MRI confirmed the area in the liver is cyst and no lesions. Pt had follow up endoscopy on 05/01/2021 and 04/2022 excluded recurrent disease. Another EGD on 05/2023 showed Single 8 mm nodule was visualized in the duodenal bulb; performed cold forceps biopsy with partial removal; and biopsy was negative. Follow up EGD on 12/29/2023: Showed only Moderate edematous and erythematous mucosa with exudate in the body of the stomach and antrum, consistent with gastritis. No evidence of NETs. Today: Yusef presents with his for a follow up exam. Overall, he feels well. He is eating and drinking okay. Denies any nausea, vomiting, changes in bowels, flushing, or wheezing. Plan: 1- Endoscopic follow up in 12 mos 2-Will RTC in 1 year for follow up Mr. Yusef Car , It was a pleasure talking to you today. Our offices will be reaching out to you to make all the appointments. I am always available at the phone numbers listed below for an earlier appointment should you wish one. In case of an emergency please dial 911 or report to your nearest Emergency Room. For all other questions, please do not hesitate to reach out to us at the number listed below. Thank you for choosing [facility]. We appreciate your visit. Neftali Knowles M.D. Manager Diversity and Director of the Neuroendocrine Tumor Program Gastrointestinal Medical Oncology Department of Hematology and Oncology [facility], [place] [address] Phone (Office): [phone] Email: [email or web address] Learn more about [facility] Comprehensive Neuroendocrine Tumor Program: Click Here Learn more about [place] Neuroend[employer]: [email or web address] documented in this encounter [facility] Work Phone: 06-30-2024 Hospital Discharge instructions Jeremiah Magaña MD - 06/30/2024 10:08 AM EST Patient Instructions after an endoscopy [...] having your procedure, call the [facility] to be advised whether a visit to [...] or looks infected. documented in this encounter [facility] Work Phone: 05-31-2024 Note [facility] Electrophysiology Consult Note Reason for visit: PAC/PVC 05/31/24 Patient here for 6 mo follow up palpitations, nonsustained atrial tachycardia, and orthostatic hypotension. Had routine labs w/ lipid panel in Mar 2024. Chest pain has resolved. Still gets lightheaded upon standing up too quickly. States that he normally drinks 3-4 water bottles daily, has not been hydrating as well recently. He takes half of amlodipine tablet as needed for high blood pressure, states he has had to do that only 3 times in the past year. Other sosa he states his blood pressure runs between 130-140's at home. 10/27/23 Table study was negative for any [...] for Syncope HPI: Yusef Car is a 74 y.o. year old with past medical history of syncope was previously seen by cardiology team including Yamilet Cottrell and ordered a stress test which was [...] AM PMH: Past Medical History: Diagnosis Date Abnormal ECG Arrhythmia CKD (chronic kidney disease) stage 3, GFR 30-59 ml/min ([facility]) Diabetes 1.5, managed as type 2 ([facility]/HCC) HTN (hypertension) Hyperlipidemia NSVT (nonsustained ventricular tachycardia) ([facility]/HCC) Primary malignant neoplasm of duodenum (CMS/HCC) PSH: Past Surgical History: Procedure Laterality Date CARDIAC CATHETERIZATION 07/27/2023 SH: Social Determinants of Health Tobacco Use: Medium Risk (04/13/2024) Received from [facility] Patient History Smoking Tobacco Use: Former Smokeless Tobacco Use: Never Passive Exposure: Never Alcohol Use: Not At Risk (06/28/2023) Received from [facility] AUDIT-C Frequency of Alcohol Consumption: Monthly or less Average Number of Drinks: 1 or 2 Frequency of Binge Drinking: Monthly [employer] (more content not included)... [facility] 04-13-2024 History of Present illness Narrative Associated [...] Alvarez CYSTOSCOPY dilitation - 1999? HEMANGIOMA EXCISION 2012 tongue ROTATOR CUFF REPAIR Left 2004 SEPTOPLASTY [...] injection Left Shoulder SA space ( code 27306 LT) Procedure, treatment alternatives, risks and benefits [...] requiring urgent evaluation. documented in this encounter [facility] 04-12-2024 History of Present illness Narrative Associated Problem(s): Type 2 diabetes mellitus with kidney complication, without long-term current use of insulin ([facility]) Currently taking glimeperide 4mg Jardiance 25mg Most [...] Associated Problem(s): Left rotator cuff tear arthropathy [facility] ortho told him he needed revision. Declined. [...] for Diabetes and Hypertension. HPI Specialists: Cardiologuy- [facility] [[email or web address]] GI- Dr. Magaña Urology- Dr. Justice HTN: [...] metabolic panel CBC and differential Mixed hyperlipidemia (CMS/HCC) - Primary Currently taking Rosuvastatin 20mg Cardiology Manages Denies any myalgias. Check Lipid Panel Continue current regimen. Relevant Medications rosuvastatin (Crestor) 20 MG tablet Other Relevant Orders Lipid panel Diabetes mellitus type 2 in obese ([facility]) Type 2 diabetes mellitus with kidney complication, without long-term current use of insulin ([facility]) Currently taking glimeperide 4mg Jardiance 25mg Most [...] Surgery Stage 3a chronic kidney disease (HCC) ([facility]) Stable. Most recent Creatinine 1.18,/ eGFR 65. Avoid Nephrotoxic Agents. Monitor closely. Relevant Orders Microalbumin / creatinine urine ratio Comprehensive metabolic panel CBC and differential Arthritis Relevant Orders Ambulatory referral to Orthopaedic Surgery documented in this encounter [facility] 04-12-2024 Instructions Miriam Gatica NP - [...] and simple sugars. documented in this encounter [facility] 12-29-2023 Hospital Discharge instructions Jeremiah Magaña MD - 12/29/2023 1:37 PM EDT Patient Instructions after an endoscopy or [...] having your procedure, call the [facility] to be advised whether a visit to [...] or looks infected. documented in this encounter [facility] Work Phone: 12-29-2023 Attending History and physical note H&P reviewed. The patient was examined and there are no changes to the H&P. Source Note - Grace Justice PA-C - 12/14/2023 2:30 PM EDT Images from the original note were not included. HPI: Patient is a 73 y.o. male in no acute distress. He is alert and oriented to person, place, and time. 07/2023 Patient is here today as a new patient referral from Dr. Shaikh Ayala for renal cysts. Patient has been seen in the distant past by urology. It does sound as though he had microscopic hematuria at that time in did have an in office perform cystoscopy. Patient does relate that they did take some samples during that procedure while he was awake and was very uncomfortable. He states that the did not find any cancer at that time. Patient was on Flomax when he was in his 40s but did not like retrograde ejaculation therefore stopped the medication. Patient has noticed that over the last few years that his urinary stream has weakened and he also has nocturia at least 3 times at night. Patient also has postvoid dribbling. Patient has some intermittent urgency. He did not he urinates every 2-3 hours during the day. He does have intermittent dysuria. He did have a dye load recently for heart catheterization. The symptoms are bothersome for him and he would like some intervention. He is not a sexually active as he used to be and would be willing to go back on Flomax. Patient denies any unintentional weight loss or loss of appetite. He states that he does have his PSA checked and it is less than 1. He denies any recent gross hematuria. He denies any new or worsening hip back or pelvis pain. Patient does have a history of a duodenal neuroendocrine tumor and follows closely with hematology oncology at [facility]. Patient has had imaging of his abdomen pelvis and recent history as well as before. This imaging is not available for us to directly visualize but the reports are available. Patient had a renal ultrasound dated 07/17/2023: right kidney:No solid renal cortical masses or hydronephrosis is noted. There is a 9 x 7 mm simple cyst involving the upper pole of the right kidney. Left kidney:There is a 5 x 4.5 cm simple cyst involving the upper pole of the left kidney. There is a 3.0 x 4.1 cm cyst involving the midpole of the left kidney. The filled bladder is grossly unremarkable. No masses are noted. In May [address] chest abdomen and pelvis with IV contrast: ADRENAL GLANDS: The right adrenal is normal in size and shape. There is a known nodule, in the left adrenal measuring 1.4 x 1.5 cm known to be an adenoma by a prior MRI scan (this measured 20 mm on MRI 01/11/2021). No change in size of this nodule from the previous examination of 12/25/2020. KIDNEYS AND URETERS: Multiple left simple renal cysts are present. Increase in size of a cyst is seen in the lateral aspect of the upper pole measuring about 4.4 cm in size compared to 2.2 cm previously. The ureters are normal in caliber. They do have concerns about the simple appearing renal cysts becoming larger. Patient denies any difficulty taking a deep breath or early satiety. Flomax started He states that he has had a hormonal workup for this including cortisol levels which she states were normal. Today: Patient is here today for follow-up BPH, left adrenal adenoma and bilateral renal cysts. Patient continues to take Flomax. At last visit we recommend that he starts taking MiraLAX as he was not having a daily bowel movement. Patient did have a MRI of his abdomen with and without contrast to evaluate his bilateral renal cysts and left adrenal adenoma. On radiology read mild stable right adrenal hyperplasia. Small bilateral lipoma involving the lateral limb of the right adrenal is unchanged compared to study in 2011. (intermediate in signal intensity on the precontrast T1-weighted images and does not enhance) Left adrenal nodule/adenoma (1.6 X 2.3 cm) is also unchanged compared to study from 09/18/2010 on the left patient has a partially exophytic Bosniak type II renal cyst. Largest measurement of this measures 6.4 cm. Patient also has a Bosniak type I exophytic left upper pole renal cyst. Maximum dimension of this is 6.2 cm. Patient denies any gross hematuria. Patient denies any difficulty taking a deep breath or early satiety. Past Medical History: Diagnosis Date Diabetes (HCC) Hypertension Irregular heart beat Kidney disease Past Surgical History: Procedure Laterality Date APPENDECTOMY BUNIONECTOMY CHOLECYSTECTOMY NASAL SEPTUM SURGERY ROTATOR CUFF REPAIR Left TONSILLECTOMY TUMOR REMOVAL neuroendocrine Outpatient Encounter Medications as of 12/14/2023 Medication Sig Dispense Refill pantoprazole (PROTONIX) 40 MG tablet Take 1 tablet by mouth 2 times daily sucralfate (CARAFATE) 1 GM tablet Take 1 tablet by mouth 4 times daily bisoprolol (ZEBETA) 5 MG tablet Take 1 tablet by mouth in the morning and at bedtime allopurinol (ZYLOPRIM) 300 MG tablet Take 1 tablet by mouth daily aspirin 81 MG chewable tablet Take 1 tablet by mouth daily empagliflozin (JARDIANCE) 25 MG tablet Take 1 tablet by mouth daily fluticasone (FLONASE) 50 MCG/ACT nasal spray 2 sprays daily furosemide (LASIX) 20 MG tablet Take 1 tablet by mouth daily glimepiride (AMARYL) 4 MG tablet Take 1 tablet by mouth every morning (before breakfast) FREESTYLE LITE strip USE DIRECTED ONCE TEST losartan (COZAAR) 100 MG tablet Take 1 tablet by mouth daily rosuvastatin (CRESTOR) 10 MG tablet Take 2 tablets by mouth daily tamsulosin (FLOMAX) 0.4 MG capsule Take 1 capsule by mouth every evening 30 capsule 3 No facility-administered encounter medications on file as of 12/14/2023. Current Outpatient Medications on File Prior to Visit Medication Sig Dispense Refill pantoprazole (PROTONIX) 40 MG tablet Take 1 tablet by mouth 2 times daily sucralfate (CARAFATE) 1 GM tablet Take 1 tablet by mouth 4 times daily bisoprolol (ZEBETA) 5 MG tablet Take 1 tablet by mouth in the morning and at bedtime allopurinol (ZYLOPRIM) 300 MG tablet Take 1 tablet by mouth daily aspirin 81 MG chewable tablet Take 1 tablet by mouth daily empagliflozin (JARDIANCE) 25 MG tablet Take 1 tablet by mouth daily fluticasone (FLONASE) 50 MCG/ACT nasal spray 2 sprays daily furosemide (LASIX) 20 MG tablet Take 1 tablet by mouth daily glimepiride (AMARYL) 4 MG tablet Take 1 tablet by mouth every morning (before breakfast) FREESTYLE LITE strip USE DIRECTED ONCE TEST losartan (COZAAR) 100 MG tablet Take 1 tablet by mouth daily rosuvastatin (CRESTOR) 10 MG tablet Take 2 tablets by mouth daily tamsulosin (FLOMAX) 0.4 MG capsule Take 1 capsule by mouth every evening 30 capsule 3 No current facility-administered medications on file prior to visit. Ciprofloxacin, Erythromycin, and Lisinopril No family history on file. Social History Tobacco Use Smoking Status Never Smokeless Tobacco Never Social History Substance and Sexual Activity Alcohol Use Not Currently Review of Systems There were no vitals taken for this visit. PHYSICAL EXAM: Constitutional: Patient in no acute distress; Neuro: alert and oriented to person place and time. Psych: Mood and affect normal. Lungs: Respiratory effort normal Abdomen: Soft, non-tender, non-distended Lab Results Component Value Date BUN 25 (H) 11/30/2023 Lab Results Component Value Date CREATININE 1.28 (H) 11/30/2023 No results found for: PSA ASSESSMENT: Diagnosis Orders 1. Bilateral renal cysts 2. Adrenal adenoma, left 3. BPH with obstruction/lower urinary tract symptoms 4. Constipation, unspecified constipation type PLAN: Patient does have a left adrenal adenoma which has not changed significant bleeding since 2010. Patient does have a Bosniak 1 and a Bosniak 2 cysts. These typically do not require any further imaging. We will obtain 1 more MRI of the abdomen in 1 year to confirm stability of left adrenal adenoma and characterize his renal cysts as they been increasing in size Continue Flomax Follow-up in 1 year with MRI abdomen and PVR [facility] Work Phone: 12-29-2023 History and physical note H&P reviewed. The patient was examined and there are no changes to the H&P. Source Note - Grace Justice PA-C - 12/14/2023 2:30 PM EDT Images from the original note were not included. HPI: Patient is a 73 y.o. male in no acute distress. He is alert and oriented to person, place, and time. 07/2023 Patient is here today as a new patient referral from Dr. Shaikh Ayala for renal cysts. Patient has been seen in the distant past by urology. It does sound as though he had microscopic hematuria at that time in did have an in office perform cystoscopy. Patient does relate that they did take some samples during that procedure while he was awake and was very uncomfortable. He states that the did not find any cancer at that time. Patient was on Flomax when he was in his 40s but did not like retrograde ejaculation therefore stopped the medication. Patient has noticed that over the last few years that his urinary stream has weakened and he also has nocturia at least 3 times at night. Patient also has postvoid dribbling. Patient has some intermittent urgency. He did not he urinates every 2-3 hours during the day. He does have intermittent dysuria. He did have a dye load recently for heart catheterization. The symptoms are bothersome for him and he would like some intervention. He is not a sexually active as he used to be and would be willing to go back on Flomax. Patient denies any unintentional weight loss or loss of appetite. He states that he does have his PSA checked and it is less than 1. He denies any recent gross hematuria. He denies any new or worsening hip back or pelvis pain. Patient does have a history of a duodenal neuroendocrine tumor and follows closely with hematology oncology at [facility]. Patient has had imaging of his abdomen pelvis and recent history as well as before. This imaging is not available for us to directly visualize but the reports are available. Patient had a renal ultrasound dated 07/17/2023: right kidney:No solid renal cortical masses or hydronephrosis is noted. There is a 9 x 7 mm simple cyst involving the upper pole of the right kidney. Left kidney:There is a 5 x 4.5 cm simple cyst involving the upper pole of the left kidney. There is a 3.0 x 4.1 cm cyst involving the midpole of the left kidney. The filled bladder is grossly unremarkable. No masses are noted. In May [address] chest abdomen and pelvis with IV contrast: ADRENAL GLANDS: The right adrenal is normal in size and shape. There is a known nodule, in the left adrenal measuring 1.4 x 1.5 cm known to be an adenoma by a prior MRI scan (this measured 20 mm on MRI 01/11/2021). No change in size of this nodule from the previous examination of 12/25/2020. KIDNEYS AND URETERS: Multiple left simple renal cysts are present. Increase in size of a cyst is seen in the lateral aspect of the upper pole measuring about 4.4 cm in size compared to 2.2 cm previously. The ureters are normal in caliber. They do have concerns about the simple appearing renal cysts becoming larger. Patient denies any difficulty taking a deep breath or early satiety. Flomax started He states that he has had a hormonal workup for this including cortisol levels which she states were normal. Today: Patient is here today for follow-up BPH, left adrenal adenoma and bilateral renal cysts. Patient continues to take Flomax. At last visit we recommend that he starts taking MiraLAX as he was not having a daily bowel movement. Patient did have a MRI of his abdomen with and without contrast to evaluate his bilateral renal cysts and left adrenal adenoma. On radiology read mild stable right adrenal hyperplasia. Small bilateral lipoma involving the lateral limb of the right adrenal is unchanged compared to study in 2010. (intermediate in signal intensity on the precontrast T1-weighted images and does not enhance) Left adrenal nodule/adenoma (1.6 X 2.3 cm) is also unchanged compared to study from 09/18/2010 on the left patient has a partially exophytic Bosniak type II renal cyst. Largest measurement of this measures 6.4 cm. Patient also has a Bosniak type I exophytic left upper pole renal cyst. Maximum dimension of this is 6.2 cm. Patient denies any gross hematuria. Patient denies any difficulty taking a deep breath or early satiety. Past Medical History: Diagnosis Date Diabetes (HCC) Hypertension Irregular heart beat Kidney disease Past Surgical History: Procedure Laterality Date APPENDECTOMY BUNIONECTOMY CHOLECYSTECTOMY NASAL SEPTUM SURGERY ROTATOR CUFF REPAIR Left TONSILLECTOMY TUMOR REMOVAL neuroendocrine Outpatient Encounter Medications as of 12/14/2023 Medication Sig Dispense Refill pantoprazole (PROTONIX) 40 MG tablet Take 1 tablet by mouth 2 times daily sucralfate (CARAFATE) 1 GM tablet Take 1 tablet by mouth 4 times daily bisoprolol (ZEBETA) 5 MG tablet Take 1 tablet by mouth in the morning and at bedtime allopurinol (ZYLOPRIM) 300 MG tablet Take 1 tablet by mouth daily aspirin 81 MG chewable tablet Take 1 tablet by mouth daily empagliflozin (JARDIANCE) 25 MG tablet Take 1 tablet by mouth daily fluticasone (FLONASE) 50 MCG/ACT nasal spray 2 sprays daily furosemide (LASIX) 20 MG tablet Take 1 tablet by mouth daily glimepiride (AMARYL) 4 MG tablet Take 1 tablet by mouth every morning (before breakfast) FREESTYLE LITE strip USE DIRECTED ONCE TEST losartan (COZAAR) 100 MG tablet Take 1 tablet by mouth daily rosuvastatin (CRESTOR) 10 MG tablet Take 2 tablets by mouth daily tamsulosin (FLOMAX) 0.4 MG capsule Take 1 capsule by mouth every evening 30 capsule 3 No facility-administered encounter medications on file as of 12/14/2023. Current Outpatient Medications on File Prior to Visit Medication Sig Dispense Refill pantoprazole (PROTONIX) 40 MG tablet Take 1 tablet by mouth 2 times daily sucralfate (CARAFATE) 1 GM tablet Take 1 tablet by mouth 4 times daily bisoprolol (ZEBETA) 5 MG tablet Take 1 tablet by mouth in the morning and at bedtime allopurinol (ZYLOPRIM) 300 MG tablet Take 1 tablet by mouth daily aspirin 81 MG chewable tablet Take 1 tablet by mouth daily empagliflozin (JARDIANCE) 25 MG tablet Take 1 tablet by mouth daily fluticasone (FLONASE) 50 MCG/ACT nasal spray 2 sprays daily furosemide (LASIX) 20 MG tablet Take 1 tablet by mouth daily glimepiride (AMARYL) 4 MG tablet Take 1 tablet by mouth every morning (before breakfast) FREESTYLE LITE strip USE DIRECTED ONCE TEST losartan (COZAAR) 100 MG tablet Take 1 tablet by mouth daily rosuvastatin (CRESTOR) 10 MG tablet Take 2 tablets by mouth daily tamsulosin (FLOMAX) 0.4 MG capsule Take 1 capsule by mouth every evening 30 capsule 3 No current facility-administered medications on file prior to visit. Ciprofloxacin, Erythromycin, and Lisinopril No family history on file. Social History Tobacco Use Smoking Status Never Smokeless Tobacco Never Social History Substance and Sexual Activity Alcohol Use Not Currently Review of Systems There were no vitals taken for this visit. PHYSICAL EXAM: Constitutional: Patient in no acute distress; Neuro: alert and oriented to person place and time. Psych: Mood and affect normal. Lungs: Respiratory effort normal Abdomen: Soft, non-tender, non-distended Lab Results Component Value Date BUN 25 (H) 11/30/2023 Lab Results Component Value Date CREATININE 1.28 (H) 11/30/2023 No results found for: PSA ASSESSMENT: Diagnosis Orders 1.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 hypertension Type 2 diabetes mellitus with stage 3a chronic kidney disease, without long-term current use of insulin (HCC) Gastroesophageal reflux disease without esophagitis Esophageal reflux Stage 3a chronic kidney disease ([facility]) Obesity (BMI 30-39.9) Diabetes mellitus type 2 in obese (CMS/HCC) Left rotator cuff tear arthropathy Chronic pain of right knee Arthritis Unspecified arthropathy, site unspecified Primary hypertension- Primary Unspecified essential hypertension Type 2 diabetes mellitus with stage 3a chronic kidney disease, without long-term current use of insulin (HCC) Stage 3a chronic kidney disease (CMS-HCC) Mixed hyperlipidemia Mixed hyperlipidemia Type 2 diabetes mellitus with stage 3a chronic kidney disease, without long-term current use of insulin (HCC)- Primary Gastroesophageal reflux disease without esophagitis Esophageal reflux Primary malignant neuroendocrine neoplasm of duodenum (HCC) Benign prostatic hyperplasia with lower urinary tract symptoms, symptom details unspecified Obesity (BMI 30-39.9) Morbid obesity (CMS-HCC) Morbid obesity Gout, unspecified cause, unspecified chronicity, unspecified site Mixed hyperlipidemia Mixed hyperlipidemia Class 1 obesity due to excess calories with serious comorbidity in adult, unspecified BMI Screening for prostate cancer Special screening for malignant neoplasm of prostate Diabetic polyneuropathy associated with type 2 diabetes mellitus (HCC) Primary hypertension Unspecified essential hypertension LLQ pain- Primary Abdominal pain, left lower quadrant Diverticulosis of sigmoid colon Diverticulitis Diverticulitis of colon (without mention of hemorrhage) Acute pain of left shoulder- Primary Left rotator cuff tear arthropathy Arthritis of left shoulder documented in this encounter [facility] HealthcareEvaluation note* Diagnosis 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 Adrenal adenoma, left documented in this encounter [facility] Work Phone: evaluation note* Diagnosis Primary hypertension- Primary Unspecified essential hypertension Primary malignant neuroendocrine neoplasm of duodenum (HCC) Gastroesophageal reflux disease without esophagitis Esophageal reflux Abnormal nuclear stress test Stage 3a chronic kidney disease (CMS-HCC) Nodule of lower lobe of left lung Type 2 diabetes mellitus with stage 3a chronic kidney disease, without long-term current use of insulin (HCC) Renal cyst, left Unspecified congenital cystic kidney disease NSVT (nonsustained ventricular tachycardia) ([facility]) Encounter to establish care with new doctor Left adrenal mass (HCC)- Primary Unspecified disorder of adrenal glands Type 2 diabetes mellitus with stage 3a chronic kidney disease, without long-term current use of insulin (HCC) Primary hypertension Unspecified essential hypertension Pneumonia of left lower lobe due to infectious organism- Primary Primary hypertension Unspecified essential hypertension Gout, unspecified cause, unspecified chronicity, unspecified site Leukemoid reaction Type 2 diabetes mellitus with stage 3a chronic kidney disease, without long-term current use of insulin (HCC) Gastroesophageal reflux disease without esophagitis- Primary Esophageal reflux Type 2 diabetes mellitus with stage 3a chronic kidney disease, without long-term current use of insulin (HCC) Primary hypertension Unspecified essential hypertension Left adrenal mass (HCC) Unspecified disorder of adrenal glands Mixed hyperlipidemia- Primary Mixed hyperlipidemia Primary hypertension Unspecified essential hypertension Type 2 diabetes mellitus with stage 3a chronic kidney disease, without long-term current use of insulin (HCC) Gastroesophageal reflux disease without esophagitis Esophageal reflux Stage 3a chronic kidney disease (CMS-HCC) Obesity (BMI 30-39.9) Diabetes mellitus type 2 in obese (CMS/HCC) Left rotator cuff tear arthropathy Chronic pain of right knee Arthritis Unspecified arthropathy, site unspecified Primary hypertension- Primary Unspecified essential hypertension Type 2 diabetes mellitus with stage 3a chronic kidney disease, without long-term current use of insulin (HCC) Stage 3a chronic kidney disease (CMS-HCC) Mixed hyperlipidemia Mixed hyperlipidemia Type 2 diabetes mellitus with stage 3a chronic kidney disease, without long-term current use of insulin (HCC)- Primary Gastroesophageal reflux disease without esophagitis Esophageal reflux Primary malignant neuroendocrine neoplasm of duodenum (HCC) Benign prostatic hyperplasia with lower urinary tract symptoms, symptom details unspecified Obesity (BMI 30-39.9) Morbid obesity (CMS-HCC) Morbid obesity Gout, unspecified cause, unspecified chronicity, unspecified site Mixed hyperlipidemia Mixed hyperlipidemia Class 1 obesity due to excess calories with serious comorbidity in adult, unspecified BMI Screening for prostate cancer Special screening for malignant neoplasm of prostate Diabetic polyneuropathy associated with type 2 diabetes mellitus (HCC) Primary hypertension Unspecified essential hypertension LLQ pain- Primary Abdominal pain, left lower quadrant Diverticulosis of sigmoid colon Diverticulitis Diverticulitis of colon (without mention of hemorrhage) Bradycardia- Primary Other specified cardiac dysrhythmias LLQ pain Abdominal pain, left lower quadrant Primary malignant neuroendocrine neoplasm of duodenum (HCC) Class 1 obesity due to excess calories with serious comorbidity in adult, unspecified BMI Type 2 diabetes mellitus with stage 3a chronic kidney disease, without long-term current use of insulin (HCC) Diverticulitis Diverticulitis of colon (without mention of hemorrhage) Primary hypertension Unspecified essential hypertension documented in this encounter [facility] HealthcareEvaluation note* Diagnosis 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 Adrenal adenoma, left documented in this encounter [facility] Work Phone: evaluation note* Diagnosis Primary hypertension- Primary Unspecified essential hypertension Primary malignant neuroendocrine neoplasm of duodenum (HCC) Gastroesophageal reflux disease without esophagitis Esophageal reflux Abnormal nuclear stress test Stage 3a chronic kidney disease ([facility]-HCC) Nodule of lower lobe of left lung Type 2 diabetes mellitus with stage 3a chronic kidney disease, without long-term current use of insulin (HCC) Renal cyst, left Unspecified congenital cystic kidney disease NSVT (nonsustained ventricular tachycardia) ([facility]) Encounter to establish care with new doctor Left adrenal mass (HCC)- Primary Unspecified disorder of adrenal glands Type 2 diabetes mellitus with stage 3a chronic kidney disease, without long-term current use of insulin (HCC) Primary hypertension Unspecified essential hypertension Pneumonia of left lower lobe due to infectious organism- Primary Primary hypertension Unspecified essential hypertension Gout, unspecified cause, unspecified chronicity, unspecified site Leukemoid reaction Type 2 diabetes mellitus with stage 3a chronic kidney disease, without long-term current use of insulin (HCC) Gastroesophageal reflux disease without esophagitis- Primary Esophageal reflux Type 2 diabetes mellitus with stage 3a chronic kidney disease, without long-term current use of insulin (HCC) Primary hypertension Unspecified essential hypertension Left adrenal mass (HCC) Unspecified disorder of adrenal glands Mixed hyperlipidemia- Primary Mixed hyperlipidemia Primary hypertension Unspecified essential hypertension Type 2 diabetes mellitus with stage 3a chronic kidney disease, without long-term current use of insulin (HCC) Gastroesophageal reflux disease without esophagitis Esophageal reflux Stage 3a chronic kidney disease ([facility]) Obesity (BMI 30-39.9) Diabetes mellitus type 2 in obese ([facility]) Left rotator cuff tear arthropathy Chronic pain of right knee Arthritis Unspecified arthropathy, site unspecified Primary hypertension- Primary Unspecified essential hypertension Type 2 diabetes mellitus with stage 3a chronic kidney disease, without long-term current use of insulin (HCC) Stage 3a chronic kidney disease (CMS-HCC) Mixed hyperlipidemia Mixed hyperlipidemia Type 2 diabetes mellitus with stage 3a chronic kidney disease, without long-term current use of insulin (HCC)- Primary Gastroesophageal reflux disease without esophagitis Esophageal reflux Primary malignant neuroendocrine neoplasm of duodenum (HCC) Benign prostatic hyperplasia with lower urinary tract symptoms, symptom details unspecified Obesity (BMI 30-39.9) Morbid obesity ([facility]) Morbid obesity Gout, unspecified cause, unspecified chronicity, unspecified site Mixed hyperlipidemia Mixed hyperlipidemia Class 1 obesity due to excess calories with serious comorbidity in adult, unspecified BMI Screening for prostate cancer Special screening for malignant neoplasm of prostate Diabetic polyneuropathy associated with type 2 diabetes mellitus (HCC) Primary hypertension Unspecified essential hypertension LLQ pain- Primary Abdominal pain, left lower quadrant Diverticulosis of sigmoid colon Diverticulitis Diverticulitis of colon (without mention of hemorrhage) Bradycardia- Primary Other specified cardiac dysrhythmias LLQ pain Abdominal pain, left lower quadrant Primary malignant neuroendocrine neoplasm of duodenum (HCC) Class 1 obesity due to excess calories with serious comorbidity in adult, unspecified BMI Type 2 diabetes mellitus with stage 3a chronic kidney disease, without long-term current use of insulin (HCC) Diverticulitis Diverticulitis of colon (without mention of hemorrhage) Primary hypertension Unspecified essential hypertension Encounter for subsequent annual wellness visit (AWV) [...] and foot joint documented in this encounter [facility] HealthcareEvaluation note* Diagnosis Onset Date Resolution Status Admit Date CKD stage 3a, GFR 45-59 ml/min acute March 13, 2025 8:52am Diabetic polyneuropathy associated with type 2 diabetes mellitus acute March 13, 2025 8:52am Gastroesophageal reflux disease acut e March 13, 2025 8:52am Hypertension acute March 132024 8:52am Left ankle swelling acute Septe mb2024 8:52am Mixed hyperlipidemia acute Feb emb2024 8:52am Obesity (BMI 30-39.9) acute Sep tember 2024 8:52am Type 2 diabetes mellitus, without long-term current use of insulin acute March 13, 2025 8:52am [facility] Work Phone: History of Present illness Narrative* HISTORY OF PRESENT ILLNESS: * Mr. CAR is a 71 year old male with a personal history of duodenal neuroendocrine cancer. 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 CAR is of Stateless and German descent. There is no known Ashkenazi Spiritism ancestry. Consanguinity was denied. No genetic testing has been done in the family before. [employer] Work Phone: History of Present illness NarrativePlease see previous genetics note.[employer] Work Phone: History of Present illness Narrative* Neftali Knowles MD - 06/21/2024 9:40 AM EST Images from the original note were not included. Patient ID: Yusef Car is a 74 y.o. male. Referring Physician: No referring provider defined for this encounter. Primary Care Provider: Shaikh Jamie MD Chief Complaint: Duodenal neuroendocrine tumor Interval History: 73 years old gentleman from [place], [place] who has been referred to me from [facility]. Thepatient complained of acid reflux for more than [...] small focus of well-differentiated neuroendocrine tumor with Ki- 67 less than 1%. Restaging imaging exclude metastatic disease. No more abdominal pain, he denies any nausea or vomiting, or change in bowel movement. He denies any carcinoid features. Today: Yusef presents with his for a follow up exam. Overall he feels well. he is eating and drinking okay. Denies any nausea, vomiting, changes in bowels, flushing, or wheezing. Subjective Patient is feeling well. Denies abdominal pain, nausea or vomiting. No new symptoms. Objective BSA: There is no height or weight on file to calculate BSA. There were no vitals taken for this visit. Yusef Car reports that he quit smoking about 41 years ago. His smoking use included cigarettes. He has never used smokeless tobacco. He reports current alcohol use. He reports no history of drug use. ROS: All 14 systems have been reviewed and were negative except for the HPI. Physical Exam: General: Appears well and in NAD Eyes: PERRL, EOMI, clear sclera ENMT: mucous membranes moist, no apparent injury, no lesions seen Head/Neck: Neck supple, no apparent injury, thyroid without mass or tenderness, No JVD, trachea midline, Thorax: Patent airways, CTAB, normal breath sounds with good chest expansion, thorax symmetric Cardiovascular: Regular, rate and rhythm, no murmurs, 2+ equal pulses of the extremities, normal S 1and S 2 Gastrointestinal: Nondistended, soft, non-tender, no rebound tenderness or guarding, no masses palpable, no organomegaly, +BS Musculoskeletal: ROM intact, no joint swelling, normal strength Extremities: normal extremities, no cyanosis edema, contusions or wounds, no clubbing Neurological: alert and oriented x3, intact senses, motor, response and reflexes, normal strength Lymphatic: No significant lymphadenopathy Psychological: Appropriate mood and behavior Skin: Warm and dry, no lesions, no rashes Performance Status: Asymptomatic Lab Results: I have reviewed these laboratory results: Lab Results Component Value Date WBC 9.6 12/28/2023 HGB 13.4 (L) 12/28/2023 HCT 43.0 12/28/2023 MCV 89 12/28/2023 PLT 365 12/28/2023 Chemistry Lab Results Component Value Date/Time NA 138 12/28/2023 0841 K 5.0 12/28/2023 0841 CL 104 12/28/2023 0841 CO2 27 12/28/2023 0841 BUN 23 12/28/2023 0841 CREATININE 1.18 12/28/2023 0841 Lab Results Component Value Date/Time CALCIUM 9.6 12/28/2023 0841 ALKPHOS 94 12/28/2023 0841 AST 13 12/28/2023 0841 ALT 15 12/28/2023 0841 BILITOT 0.4 12/28/2023 0841 No results found for: TSH , M1IESFE , F9ARRBD , THYROIDPAB Radiology Result: I have reviewed the latest Imaging in PACS and the findings are noted in this note. I discussed theresults of the latest imaging with the patient. All previous imaging were reviewed at the time it was completed. Full records are available in the EMR for review as well. === 05/26/23 === CT CHEST ABDOMEN PELVIS W IV CONTRAST - Impression - CHEST: 1. Nodule superior segment left lower [...] Juanjose Walters 05/27/2023 11:47 AM Dictation workstation: [id number] === 01/11/21 === - Impression - 1. Tiny cyst in hepatic segment RED. No suspicious hepatic lesions identified otherwise. 2. 2 cm left adrenal adenoma. Smaller myelolipomas identified on CT are not well characterized on motion degraded MR. 3. Left renal cysts. 4. No findings of metastatic disease of the abdomen. CT chest abdomen pelvis w IV contrast Result Date: 05/27/2023 Impression: CHEST: 1. Nodule superior segment left lower lobe. Three-month follow-up noncontrast CTscanning is recommended as no prior studies are [...] Juanjose Walters 05/27/2023 11:47 AM Dictation workstation: [id number] Pathology Results: I have reviewed the full pathology report recorded in the EMR. The pertinent portions indicating diagnosis are listed here in the note. for details please refer to the full report recorded in the EMR. Assessment and Plan: Localized duodenal neuroendocrine tumor (G1) 73 years old gentleman from [place], [place] who has been referred to me from [facility]. Thepatient complained of acid reflux for more than [...] small focus of well-differentiated neuroendocrine tumor with Ki- 67 less than 1%. According to him he did not have any staging imaging. He still have intermittent epigastric pain which is unrelated to specific type of food, he denies any nausea or vomiting, or change in bowel movement. He denies any carcinoid features. The patient has been recommended to go to [place] for surgical consultation. I discussed with the patient before with him thatwe need to have staging imaging including CT abdomen and pelvis, and PET-Ga68 to exclude metastaticdisease. Both have shown only uptake within the duodenum with small area in segment 4 of the liver which looks cyst, there is also prostatic uptake which can be either prostatitis or concern for malignancy and we sent to follow up with urology for follow up . Serum gastrin is normal and serum PSA is normal. Pt had complete endoscopic resection on 01/23/2021. Liver MRI confirmed the area in the liver is cyst and no lesions. Pt had follow up endoscopy on 05/01/2021 and 04/2022 excluded recurrent disease. Another EGD on 05/2023 showed Single 8 mm nodule was visualized in the duodenal bulb; performed cold forceps biopsy with partial removal; and biopsy was negative. Follow up EGD on 12/29/2023: Showed only Moderate edematous and erythematous mucosa with exudate inthe body of the stomach and antrum, consistent with gastritis. No evidence of NETs. Today: Yusfe presents with his for a follow up exam. Overall, he feels well. He is eating anddrinking okay. Denies any nausea, vomiting, changes in bowels, flushing, or wheezing. Plan: 1- Endoscopic follow up in 12 mos 2-Will RTC in 1 year for follow up Mr. Yusef Car , It was a pleasure talking to you today. Our offices will be reaching out to you to make all the appointments. I am always available at the phone numbers listed below for an earlier appointment should you wish one. In case of an emergency please dial 911 or report to your nearest Emergency Room. For all other questions, please do not hesitate to reach out to us at the number listed below. Thank you for choosing [facility]. We appreciate your visit. Neftali Knowles M.D. Manager Diversity and Director of the Neuroendocrine Tumor Program Gastrointestinal Medical Oncology Department of Hematology and Oncology [facility], [place] [address] Phone (Office): [phone] Email: [email or web address] Learn more about [facility] Comprehensive Neuroendocrine Tumor Program: Click Here Learn more about [place] Neuroend[employer] Society: [email or web address] [facility] Work Phone: Hospital Discharge instructionsAmbulatory Orders* Referral to Podiatry Time Frame: 03/13/25, Location: None [facility] Work Phone: reason for visit Narrative* Endoscopy (Routine) - Authorized Specialty Diagnoses / Procedures Referred By Contact Referred To Contact Gastroenterology Diagnoses Primary malignant neuroendocrine neoplasm of duodenum (Multi) Procedures Esophagogastroduodenoscopy (EGD) WV ESOPHAGOGASTRODUODENOSCOPY TRANSORAL DIAGNOSTIC WV EGD TRANSORAL BIOPSY SINGLE/MULTIPLE Jeremiah Magaña MD [address] [facility] [address] [place] [address] Phone: tel:[phone] fax:[phone] Referral ID Status Reason Start Date Expiration Date V isits Requested Visits Authorized [id number] Authorized 06/22/2024 06/22/2025 1 1 [facility] Work Phone: reason for visit Narrative* Imaging (Routine) - Closed Specialty Diagnoses / Procedures Referred By Contac t Referred To Contact Radiology Diagnoses Bilateral renal cysts Adrenal adenoma, left Procedures MRI ABDOMEN W WO CONTRAST Grace Justice, SHERMAN [address] [facility] [address] [place] [address] Phone: tel: fax: Referral ID Status Reason Start Date Expiration Date Visits Re quested Visits Authorized [id number] Closed 12/13/2024 12/13/2025 1 1 [facility] Work Phone: Summary Purpose Family History Unknown [...] Spouse Health Care Agent [phone] (Mobile) [email or web address] on File Name Relationship Healthcare Agent Relationshi p Communication Zoe Josep Spouse Health Care Agent [phone] (Mobile) [email or web address] on File Name Relationship Healthcare Agent Relationshi p Communication Zoe Josep Spouse Health Care Agent [phone] (Mobile) [email or web address] on File Name Relationship Healthcare Agent Relationshi p Communication Zoe Josep Spouse Health Care Agent [phone] (Mobile) [email or web address] on File Name Relationship Healthcare Agent Relationshi p Communication Zoe Josep Spouse Health Care Agent [phone] (Mobile) [email or web address] on File Name Relationship Healthcare Agent Relationshi p Communication Zoe Josep Spouse Health Care Agent [phone] (Mobile) [email or web address] on File Name Relationship Healthcare Agent Relationshi p Communication Zoe Josep Spouse Health Care Agent [phone] (Mobile) [email or web address] on File Name Relationship Healthcare Agent Relationshi p Communication Zoe Josep Spouse Health Care Agent [phone] (Mobile) [email or web address] on File Name Relationship Healthcare Agent Relationshi p Communication Zoe Josep Spouse Health Care Agent [phone] (Mobile) [email or web address] on File Name Relationship Healthcare Agent Relationshi p Communication Zoe Josep Spouse Health Care Agent [phone] (Mobile) [email or web address] on File Name Relationship Healthcare Agent Relationshi p Communication Zoe Josep Spouse Health Care Agent [phone] (Mobile) [email or web address] on File Name Relationship Healthcare Agent Relationshi p Communication Zoe Josep Spouse Health Care Agent [phone] (Mobile) [email or web address] on File Name Relationship Healthcare Agent Relationshi p Communication Zoe Josep Spouse Health Care Agent [phone] (Mobile) [email or web address] on File Name Relationship Healthcare Agent Relationshi p Communication Zoe Josep Spouse Health Care Agent [phone] (Mobile) [email or web address] on File Name Relationship Healthcare Agent Relationshi p Communication Zoe Josep Spouse Health Care Agent [phone] (Mobile) [email or web address] on File Name Relationship Healthcare Agent Relationshi p Communication Zoe Josep Spouse Health Care Agent [phone] (Mobile) [email or web address] on File Name Relationship Healthcare Agent Relationshi p Communication Zoe Josep Spouse Health Care Agent [phone] (Mobile) [email or web address] on File Name Relationship Healthcare Agent Relationshi p Communication Zoe Josep Spouse Health Care Agent [phone] (Mobile) [email or web address] on File Name Relationship Healthcare Agent Relationshi p Communication Zoe Car Spouse Health Care Agent [phone] (Mobile) [email or web address] on File Name Relationship Healthcare Agent Relationshi p Communication Zoe Josep Spouse Health Care Agent [phone] (Mobile) [email or web address] on File Name Relationship Healthcare Agent Relationshi p Communication Zoe Josep Spouse Health Care Agent [phone] (Mobile) [email or web address] on File Name Relationship Healthcare Agent Relationshi p Communication Zoe Car Spouse Health Care Agent [phone] (Mobile) [email or web address] on File Name Relationship Healthcare Agent Relationshi p Communication Zoe Josep Spouse Health Care Agent [phone] (Mobile) [email or web address] on File Name Relationship Healthcare Agent Relationshi p Communication Zoe Josep Spouse Health Care Agent [phone] (Mobile) [email or web address] on File Name Relationship Healthcare Agent Relationshi p Communication Zoe Car Spouse Health Care Agent [phone] (Mobile) [email or web address] Directive Response Recorded Date/ Time Advance Directives No November 29 1:34pm Chief Complaint Duodenal well-differentiated neuroendocrine tumor* Patient [...] abdomen pelvis w IV contrast Jazlyn Mcarthur, RETAIL GENERAL MANAGER-GAS APPLIANCE SERVICER HELPER [id number] [address] [facility] [place] [phone] Referral ID Status Reason Start Date Expiration Date Visits Requested Visits Authorized [id number] Pending Review Perform Procedure 05/19/2023 05/18/2024 1 1 Specialty Diagnoses / Procedures Referred By Contact Referred To Contact Gastroenterology Diagnoses Primary malignant neuroendocrine neoplasm of duodenum (CMS/HCC) Procedures EGD WV ESOPHAGOGASTRODUODENOSCOPY TRANSORAL DIAGNOSTIC WV EGD TRANSORAL BIOPSY SINGLE/MULTIPLE Jazlyn Mcarthur, RETAIL GENERAL MANAGER-GAS APPLIANCE SERVICER HELPER [id number] [facility] [place] [address] Referral ID Status Reason Start Date Expiration Date V isits Requested Visits Authorized [id number] Pending Review 05/19/2023 05/18/2024 1 1 Specialty Diagnoses / Procedures Referred By Contac t Referred To Contact Radiology Diagnoses Exam for clinical trial Procedures US COMPARISON OF OUTSIDE FILMS Grace Justice PA-C [address] [place] [address] Referral ID Status Reason Start Date Expiration Date V isits Requested Visits Authorized [id number] Pending Review 07/28/2023 07/27/2024 1 1 Specialty Diagnoses / Procedures Referred By Contac t Referred To Contact Gastroenterology Diagnoses Primary malignant neuroendocrine neoplasm of duodenum (Multi) Procedures Endoscopic Ultrasound (Upper) [place] [address] [facility] [address] [place] [address] Referral ID Status Reason Start Date Expiration Date V isits Requested Visits Authorized [id number] Pending Review 06/29/2023 06/28/2024 1 1 Specialty Diagnoses / Procedures Referred By Contac t Referred To Contact Radiology Diagnoses Bilateral renal cysts Adrenal adenoma, left Procedures MRI ABDOMEN W WO CONTRAST Grace Justice PA-C [address] [place] [address] Referral ID Status Reason Start Date Expiration Date Visits Re quested Visits Authorized [id number] Closed 11/30/2023 12/07/2024 1 1 Specialty Diagnoses / Procedures Referred By Contact Referred To Contact Gastroenterology Diagnoses Primary malignant neuroendocrine neoplasm of duodenum (Multi) Procedures EGD WV ESOPHAGOGASTRODUODENOSCOPY TRANSORAL DIAGNOSTIC WV EGD TRANSORAL BIOPSY SINGLE/MULTIPLE Jeremiah Magaña MD [address] [facility] [address] [place] [address] Referral ID Status Reason Start Date Expiration Date V isits Requested Visits Authorized [id number] Pending Review 07/02/2023 07/01/2024 1 1 Specialty Diagnoses / Procedures Referred By Contac t Referred To Contact Radiology Diagnoses Primary malignant neuroendocrine neoplasm of duodenum (Multi) Procedures CT chest [place] [address] [place] [address] Referral ID Status Reason Start Date Expiration Date Visits Requested Visits Authorized [id number] Authorized Perform Procedure 06/18/2023 06/17/2024 1 1 Chief Complaint and Reason for Visit Chief Complaint Admit Date Amb Documentation February 14, 2025 1:26pm 2M March 13, 2025 8:52am Reason for Visit Admit Date CKD stage 3a, GFR 45-59 ml/min March 13, 2025 8:52am Diabetic polyneuropathy asso ciated with type 2 diabetes mellitus March 13, 2025 8:52am Gastroesophageal reflux disease Septembe r 2024 8:52am Hypertension March 13, 2025 8:52am Left ankle swelling March 13, 2025 8:52am Mixed hyperlipidemia March 13 8:52am Obesity (BMI 30-39.9) March 13 8:52am Type 2 diabetes mellitus, wi thout long-term current use of insulin March 13, 2025 8:52am Additional Source Comments (unrecognized sect ion and content) No Status Records FoundNo Status Records FoundNo Status Records FoundNo Status Records FoundNo Status Records FoundNo Status Records FoundNo Status Records FoundNo Status Records FoundNo Status Records FoundNo Status Records FoundNo Status Records FoundNo Status Records FoundNo Status Records Found INFORMATION SOURCE (unrecogn ized section and content) DATE CREATED AUTHOR 10/12/2018 [facility] DATE CREATED AUTHOR AUTHOR'S ORGANIZ ATION 06/13/2021 [facility] DATE CREATED AUTHOR AUTHOR'S ORGANIZ ATION 12/06/2021 [employer] DATE CREATED AUTHOR AUTHOR'S ORGANIZ ATION 05/14/2022 [facility] DATE CREATED AUTHOR AUTHOR'S ORGANIZ ATION 09/17/2022 [facility] DATE CREATED AUTHOR AUTHOR'S ORGANIZ ATION 07/31/2023 Saulo Diez [facility] DATE CREATED AUTHOR AUTHOR'S ORGANIZ ATION 08/02/2023 [facility] DATE CREATED AUTHOR AUTHOR'S ORGANIZ ATION 06/27/2024 [facility] DATE CREATED AUTHOR AUTHOR'S ORGANIZ ATION 07/07/2024 [facility] DATE CREATED AUTHOR AUTHOR'S ORGANIZ ATION 11/29/2024 [facility] DATE CREATED AUTHOR AUTHOR'S ORGANIZ ATION 12/02/2024 [facility] DATE CREATED AUTHOR AUTHOR'S ORGANIZ ATION 12/19/2024 [facility] DATE CREATED AUTHOR AUTHOR'S ORGANIZ ATION 01/09/2025 [facility] EPIC Reason for Visit (unrecogniz ed section and content) Specialty Diagnoses / Procedures Referred By Contac t Referred To Contact Radiology Diagnoses Primary malignant neuroendocrine neoplasm of duodenum (CMS/HCC) Procedures CT chest abdomen pelvis w IV contrast Jazlyn Mcarthur APRN-CNP [id number] [place] [place] [address] Referral ID Status Reason Start Date Expiration Date Visits Requested Visits Authorized [id number] Pending Review Perform Procedure 05/19/2023 05/18/2024 1 1 Specialty Diagnoses / Procedures Referred By Contact Referred To Contact Gastroenterology Diagnoses Primary malignant neuroendocrine neoplasm of duodenum (CMS/HCC) Procedures EGD WV ESOPHAGOGASTRODUODENOSCOPY TRANSORAL DIAGNOSTIC WV EGD TRANSORAL BIOPSY SINGLE/MULTIPLE Jazlyn Mcarthur APRN-GAS APPLIANCE SERVICER HELPER [id number] [address] [place] [address] Referral ID Status Reason Start Date Expiration Date V isits Requested Visits Authorized [id number] Pending Review 05/19/2023 05/18/2024 1 1 Reason Comments New Med Request Specialty Diagnoses / Procedures Referred By Contac t Referred To Contact Radiology Diagnoses Exam for clinical trial Procedures US COMPARISON OF OUTSIDE FILMS Grace Justice PA-C [address] [place] [address] Referral ID Status Reason Start Date Expiration Date V isits Requested Visits Authorized [id number] Pending Review 07/28/2023 07/27/2024 1 1 Specialty Diagnoses / Procedures Referred By Contac t Referred To Contact Gastroenterology Diagnoses Primary malignant neuroendocrine neoplasm of duodenum (Multi) Procedures Endoscopic Ultrasound ([place]) [place] [address] [facility] [address] [place] [address] Referral ID Status Reason Start Date Expiration Date V isits Requested Visits Authorized [id number] Pending Review 06/29/2023 06/28/2024 1 1 Specialty Diagnoses / Procedures Referred By Contac t Referred To Contact Radiology Diagnoses Bilateral renal cysts Adrenal adenoma, left Procedures MRI ABDOMEN W WO CONTRAST Grace Justice PA-C [address] [place] [address] Referral ID Status Reason Start Date Expiration Date Visits Re quested Visits Authorized [id number] Closed 11/30/2023 12/07/2024 1 1 Reason Comments Diabetes Hypertension Reason Comments Pain Specialty Diagnoses / Procedures Referred By Contac t Referred To Contact Orthopaedic Surgery Diagnoses Left rotator cuff tear arthropathy Chronic pain of right knee Arthritis Miriam Gatica, ANJEL [address] [place] [address] Phone: tel: fax: Jenniffer Sears PA [address] [facility] [address] [place] [address] Phone: tel: fax: Referral ID Status Reason Start Date Expiration Date V isits Requested Visits Authorized [id number] Closed Specialty Services Required 04/12/2024 10/09/2024 1 1 Specialty Diagnoses / Procedures Referred By Contact Referred To Contact Gastroenterology Diagnoses Primary malignant neuroendocrine neoplasm of duodenum (Multi) Procedures EGD WV ESOPHAGOGASTRODUODENOSCOPY TRANSORAL DIAGNOSTIC WV EGD TRANSORAL BIOPSY SINGLE/MULTIPLE Jeremiah Magaña MD [address] [address] Referral ID Status Reason Start Date Expiration Date V isits Requested Visits Authorized [id number] Pending Review 07/02/2023 07/01/2024 1 1 Specialty Diagnoses / Procedures Referred By Contac t Referred To Contact Radiology Diagnoses Primary malignant neuroendocrine neoplasm of duodenum (Multi) Procedures CT chest [place] [address] [place] [address] Referral ID Status Reason Start Date Expiration Date Visits Requested Visits Authorized [id number] Authorized Perform Procedure 06/18/2023 06/17/2024 1 1 Reason Onset Date Comments Med Refill 02/23/2024 Reason Comments Follow-up Reason Comments Med Refill Reason Comments Diabetes Reason Comments Diabetes Hyperlipidemia Hypertension Reason Onset Date Comments Med Refill 10/11/2024 Reason Onset Date Comments Med Refill 10/19/2024 Reason Comments Abdominal Pain Fever Reason Comments Medicare Annual Wellness Visit Initial Care Teams (unrecognized sec tion and content) Sampler First Relationship Specialty Start Date End Date Renea Barajas DO [address] [place] [address] PCP - General Family Medicine 05/26/23 Sampler First Relationship Specialty Start Date End Date Renea Barajas DO [address] [place] [address] PCP - General Family Medicine 05/26/23 Sampler First Relationship Specialty Start Date End Date Renea Barajas DO [address] [place] [address] PCP - General Family Medicine 05/26/23 Sampler First Relationship Specialty Start Date End Date Shaikh Ayala MD [address] [place] [address] PCP - General Internal Medicine 07/15/23 Sampler First Relationship Specialty Start Date End Date Shaikh Ayala MD [address] [place] [address] PCP - General Internal Medicine 07/15/23 Sampler First Relationship Specialty Start Date End Date Renea Barajas DO [address] [place] [address] PCP - General Family Medicine 05/26/23 [place] [address] [place] [address] Consulting Physician Hematology and Oncology 06/15/23 Sampler First Relationship Specialty Start Date End Date Shaikh Ayala MD [address] [place] [address] PCP - General 07/31/23 Sampler First Relationship Specialty Start Date End Date Shaikh Ayala MD [address] [place] [address] PCP - General 07/31/23 Sampler First Relationship Specialty Start Date End Date Shaikh Ayala MD [address] [place] [address] PCP - General Internal Medicine 07/15/23 Renea Barajas DO [address] [place] [address] PCP - ACO Reach 08/14/23 Sampler First Relationship Specialty Start Date End Date Renea Barajas DO [address] [place] [address] PCP - ACO Reach 08/14/23 Miriam Gatica NP [address] [place] [address] Nurse Practitioner Family Medicine 04/12/24 Sampler First Relationship Specialty Start Date End Date Renea Barajas DO [address] [facility] [place] [address] PCP - ACO Reach 08/14/23 Gerald Low MD [address] [place] [address] PCP - General Family Medicine 04/13/24 Miriam Gatica NP [address] [place] [address] Nurse Practitioner Family Medicine 04/12/24 Sampler First Relationship Specialty Start Date End Date Renea Barajas DO [address] [place] [address] PCP - ACO Reach 08/14/23 Gerald Low MD [address] [place] [address] PCP - General Family Medicine 04/13/24 Miriam Gatica NP [address] [place] [address] Nurse Practitioner Family Medicine 04/12/24 Sampler First Relationship Specialty Start Date End Date Renea Barajas DO [address] [place], [place] [id number] PCP - ACO Reach 08/14/23 Gerald Low MD [address] [place] [address] PCP - General Family Medicine 04/13/24 Miriam Gatica NP [address] [place] [address] Nurse Practitioner Family Medicine 04/12/24 Sampler First Relationship Specialty Start Date End Date Renea Barajas DO [address] [place] [address] PCP - General Family Medicine 05/26/23 [place] [address] [place] [address] Consulting Physician Hematology and Oncology 06/15/23 Sampler First Relationship Specialty Start Date End Date Shaikh Ayala MD [address] [place] [address] PCP - General Internal Medicine 12/31/23 [place] [address] [place] [address] Consulting Physician Hematology and Oncology 06/15/23 Sampler First Relationship Specialty Start Date End Date Shaikh Ayala MD [address] [place] [address] PCP - General Internal Medicine 07/15/23 Renea Barajas DO [address] [facility] [place] [address] PCP - ACO Reach 08/14/23 Sampler First Relationship Specialty Start Date End Date Shaikh Ayala MD [address] [place] [address] PCP - General Internal Medicine 07/15/23 Renea Barajas DO [address] [facility] [place] [address] PCP - ACO Reach 08/14/23 Sampler First Relationship Specialty Start Date End Date Shaikh Ayala MD [address] [place] [address] PCP - General Internal Medicine 12/31/23 [place] [address] [place] [address] Consulting Physician Hematology and Oncology 06/15/23 Sampler First Relationship Specialty Start Date End Date Shaikh Ayala MD [address] [place] [address] PCP - General Internal Medicine 12/31/23 [place] [address] [place] [address] Consulting Physician Hematology and Oncology 06/15/23 Sampler First Relationship Specialty Start Date End Date Renea Barajas DO [address] [place] [address] PCP - ACO Reach 08/14/23 Gerald Low MD [address] [place] [address] PCP - General Family Medicine 04/13/24 Miriam Gatica NP [address] [place] [address] Nurse Practitioner Family Medicine 04/12/24 Sampler First Relationship Specialty Start Date End Date Renea Barajas DO [address] [place] [facility] [place] [address] PCP - ACO Reach 08/14/23 Gerald Low MD [address] [place] [address] PCP - General Family Medicine 04/13/24 Miriam Gatica NP [address] [place] [address] Nurse Practitioner Family Medicine 04/12/24 Sampler First Relationship Specialty Start Date End Date Gerald Low MD [address] [place] [address] PCP - General Family Medicine 04/13/24 Renea Barajas DO [address] [place] [address] PCP - ACO Reach 07/29/24 Miriam Gatica NP Nurse Practitioner Family Medicine 04/12/24 Sampler First Relationship Specialty Start Date End Date Gerald Low MD [address] [place] [address] PCP - General Family Medicine 04/13/24 Renea Barajas DO [address] [facility] [place], [place] [address] PCP - ACO Reach 07/29/24 Miriam Gatica NP Nurse Practitioner Family Medicine 04/12/24 Sampler First Relationship Specialty Start Date End Date Gerald Low MD [address] [place] [address] PCP - General Family Medicine 04/13/24 Miriam Gatica NP Nurse Practitioner Family Medicine 04/12/24 Sampler First Relationship Specialty Start Date End Date Gerald Low MD [address] [place] [address] PCP - General Family Medicine 04/13/24 Miriam Gatica NP Nurse Practitioner Family Medicine 04/12/24 Sampler First Relationship Specialty Start Date End Date Gerald Low MD [address] [place] [address] PCP - General Family Medicine 04/13/24 Miriam Gatica NP Nurse Practitioner Family Medicine 04/12/24 Sampler First Relationship Specialty Start Date End Date Gerald Low MD [address] [place] [address] PCP - General Family Medicine 04/13/24 Miriam Gatica NP Nurse Practitioner Family Medicine 04/12/24 Sampler First Relationship Specialty Start Date End Date Gerald Low MD [address] [place] [address] PCP - General Family Medicine 04/13/24 Miriam Gatica NP Nurse Practitioner Family Medicine 04/12/24 Sampler First Relationship Specialty Start Date End Date Gerald Low MD [address] [place] [address] PCP - General Family Medicine 04/13/24 Miriam Gatica NP Nurse Practitioner Family Medicine 04/12/24 Sampler First Relationship Specialty Start Date End Date Gerald Low MD [address] [place] [address] PCP - General Family Medicine 04/13/24 Miriam Gatica NP Nurse Practitioner Family Medicine 04/12/24 Sampler First Relationship Specialty Start Date End Date Gerald Low MD [address] [place] [address] PCP - General Family Medicine 04/13/24 Miriam Gatica NP Nurse Practitioner Family Medicine 04/12/24 Sampler First Relationship Specialty Start Date End Date Gerald Low MD [address] [place] [address] PCP - General Family Medicine 04/13/24 Miriam Gatica NP Nurse Practitioner Family Medicine 04/12/24 Sampler First Relationship Specialty Start Date End Date Gerald Low MD [address] [place] [address] PCP - General Family Medicine 04/13/24 Miriam Gatica NP Nurse Practitioner Family Medicine 04/12/24 Sampler First Relationship Specialty Start Date End Date Gerald Low MD [address] [place] [address] PCP - General Family Medicine 04/13/24 Miriam Gatica NP Nurse Practitioner Family Medicine 04/12/24 Sampler First Relationship Specialty Start Date End Date Shaikh Ayala MD PCP - General 07/31/23 Sampler First Relationship Specialty Start Date End Date Gerald Low MD [address] [place] [address] PCP - General Family Medicine 04/13/24 Miriam Gatica NP Nurse Practitioner Family Medicine 04/12/24 Sampler First Relationship Specialty Start Date End Date Gerald Low MD [address] [place] [address] PCP - General Family Medicine 04/13/24 Miriam Gatica NP Nurse Practitioner Family Medicine 04/12/24 Sampler First Relationship Specialty Start Date End Date Shaikh Ayala MD PCP - General 07/31/23 Sampler First Relationship Specialty Start Date End Date Gerald Low MD [address] [place] [address] PCP - General Family Medicine 04/13/24 Miriam Gatica NP Nurse Practitioner Family Medicine 04/12/24 Sampler First Relationship Specialty Start Date End Date Gerald Low MD [address] [place] [address] PCP - General Family Medicine 04/13/24 Miriam Gatica NP Nurse Practitioner Family Medicine 04/12/24 Sampler First Relationship Specialty Start Date End Date Gerald Low MD [address] [place] [address] PCP - General Family Medicine 04/13/24 Miriam Gatica NP Nurse Practitioner Family Medicine 04/12/24 Team Status: Active Member Role Status Dates Tomeka Rosado MAINTAINABILITY ENGINEER-C Primary Care Provider Active Team Status: Active Member Role Status Dates LAVERNE Dolan Attending Provider Active Start: February 14, 2025 Team Status: Inactive Member Role Status Dates LAVERNE Dolan Primary Care Provider Active Start: March 13, 2025 End: March 13, 2025 LAVERNE Dolan Attending Provider Active Start: March 13, 2025 End: March 13, 2025 Goals (unrecognized section and content) Goals may be documented in a n alternate section FOR RECORDS PERTAINING TO PATIENTS WHO ARE [...] BE BASED ON THE PRIMARY CLINICAL RECORDS. [facility] [employer] provides no warranty or guarantee of the accuracy or completeness of information in this document.
--- OUTSIDE RECORDS SUMMARY | 2025-03-20 02:38 | XMS_ITS | Encounter Summary ---
Author Organization [facility] Address [address], [address] [place] [address] Care Team Providers Care Wire Welder Name Role Phone Shaikh MARY Ayala Primary Care Provider [phone] Encounter Details Date Type Department Care Team (Late Contact Info) Description 12/01/2023 Hospital Encounter [facility] Radiology [address] [place], [place] [id number] Social History Tobacco Use Types Packs/Day Years [...] 12/20/2025 8:30 AM EDT Appointment [facility] MRI [address] [place], [place] [phone] 12/26/2025 9:30 AM EDT Office Visit [place] [facility] on Main [address] [address] Belen Camargo, PRODUCT DEVELOPMENT CONSULTANT - GRINDER GEAR [address] [place] [address] yearly with MRI documented as of this encounter Visit Diagnoses Not on filedocumented in this encounter Care Teams Wire Welder Relationship Specialty Start Date End Date Shaikh Ayala MD PCP - General 07/31/23 documented as of this encounter
--- OUTSIDE RECORDS SUMMARY | 2025-03-20 02:38 | XMS_ITS ---
Author Organization [facility] Address [address] [place] [address] Care Team Providers Care Optical Laboratory Mechanic Name Role Phone Tomeka Rosado MD Primary Care Provider [phone] Active Problems Problem Noted Date Diagnosed Date Arthritis 05/31/2024 History of tobacco abuse 05/31/2024 Hypersomnia 05/31/2024 URTI (acute upper respiratory infection) 024 Leukemoid reaction 10/12/2023 10/27/2023 Overview (10/27/2023): Last Assessment & Plan: WBC of 19 k on labs drawn at [facility] - recheck Pneumonia of left lower [...] that he may benefit from seeing a planning aide for DM, adrenal mass Abnormal nuclear stress test 07/15/202310/2023 Overview (08/18/2023): Last Assessment & Plan: Nuclear stress test 07/08 - perfusion defect in LAD distribution. Asymptomatic. Instructed to start using ASA. Patient scheduled for [facility] on 07/29/23 No prior hx of CAD Encounter to establish care with new doctor 06/1708/18/2023 Overview (08/18/2023): Last Assessment & Plan: New Patient, here to establish care. Reviewed medical, surgical and social hx. Reviewed available old records. Reviewed and updated medication list. New Patient for this practice. Was previously established with Dr Barajas but had to switch since she moved to [facility]. Near syncope 07/10/2023 Assessment & Plan (08/18/2023 11:07 AM EST): Currently stable, no further episode noted Assessment & Plan (07/10/2023 5:18 PM EST): Recently admitted to [facility] for near syncope, bradycardia, abnormal stress [...]
--- OUTSIDE RECORDS SUMMARY | 2025-03-20 02:38 | XMS_ITS | Clinical Summary ---
Author Organization [facility] Address [address], [address] [place] [address] Care Team Providers Care Education Specialist Name Role Phone Shaikh MARY Ayala Primary Care Provider [phone] Allergies Active Allergy Reactions Criticality Noted Date Comments Ciprofloxacin Other (See Comments) 11/24/2022 Other Reaction(s): ?change in mental status TIA Erythromycin Other (See Comments) 04/28/2023 Lisinopril Cough 06/24/2021 Medications allopurinol (ZYLOPRIM) 300 MG tablet Take 1 tablet by mouth daily 09/17/2020 Active empagliflozin (JARDIANCE) 25 MG tablet Take [...] 2 tablets by mouth daily 09/17/2020 Active bisoprolol (ZEBETA) 5 MG tablet Take 1 tablet by mouth in the morning and at bedtime Active tamsulosin (FLOMAX) 0.4 MG capsule TAKE 1 CAPSULE DAILY 90 capsule 3 08/04/2024 Active amLODIPine (NORVASC) 10 MG tablet Take 0.5 tablets by mouth as needed Active omeprazole (PRILOSEC) 40 MG delayed release capsule Take 1 capsule by mouth every morning (before breakfast) 04/12/2024 Active Encounters Date Type Department Care Team Description 12/20/2024 10:15 AM EDT Office Visit [place] [facility] on [address] [address] Ky Justice PA-C Adrenal adenoma, left (Primary Dx); Bilateral renal cysts; BPH with obstruction/lower urinary tract symptoms 12/19/2024 Results Follow-Up [place] [facility] on [address] [phone] Belen Camargo, MARLENE - GABINO from Last 3 Months Social History Tobacco [...] Info) Description 12/20/2025 8:30 AM EDT Appointment [facility] MRI [address] [place] [id number] 12/26/2025 9:30 AM EDT Office Visit [place] [facility] on [address] [address] Belen Camargo, DEVELOPMENT ENGINEER - DIRECTOR OF COMPENSATION [address] [place] [address] yearly with MRI Health Maintenance Due Date Last Done Comments Depression Screen 1961 Hepatitis C screen 1967 Lipids 1989 Colonoscopy 1994 Colorectal Cancer Screen 1994 FIT/FOBT: Average risk 1994 Fecal-DNA (Cologuard): Average risk 1994 Sigmoidoscopy/CT colonography 1994 Shingles vaccine (2 of 3) 07/19/2016 05/24/2016, 06/2015 Annual Wellness Visit (Medicare) 07/31/2023 Flu vaccine (#1) 01/13/2025 04/05/2024, 11/2022, 03/27/2022, Additional history exists COVID-19 Vaccine ( season) 2025 04/28/2023, 10/15/2021, 03/25/2021, Additional history exists DTaP/Tdap/Td vaccine (3 - [...] Adrenal adenoma, left from Last 3 Months or Most Recently Relevant to Health Maintenance Results * (ABNORMAL) BUN & Creatinine (12/08/2024 7:50 AM EDT) BUN 24(H) 9 - 20 mg/dL 12/08/2024 7:50 AM EDT [facility] Creatinine 1.07 0.66 - 1.25 mg/dL 12/08/2024 7:50 AM EDT [facility] Est, Glom Filt Rate 72 >60 mL/min/1.7 3m2 12/08/2024 7:50 AM EDT [facility] Comment: GFR calculated using CKD-EPI (2020) [...] Ky Justice PA-C [place]MISTR[place] [address] from Last 3 Months or Most Recently Relevant to Health Maintenance Insurance MEDICARE [employer] Care Teams Education Specialist Relationship Specialty Start Date End Date Shaikh Ayala MD PCP - General 07/31/23
--- NOTE | 2025-03-20 02:46 | ECG_ITS ---
The [facility] Test Date: 2025-03-20 Pat Name: YUSEF MELGAR Department: Room: - Gender: Male Nut Sorter: : 1950 Requested By: 1030 Order Number: [id number] Reading MD: RADHA ELAINE M.D. Measurements Intervals [place] Rate: 79 P: 30 DC: 196 QRS: -88 QRSD: 158 T: 36 QT: 464 QTc: 498 Interpretive Statements 1100 Sinus rhythm 1570 with occasional ventricular premature complexes 2550 Left bundle branch block 7200 Abnormal left axis deviation 9150 abnormal ECG Compared to ECG 12/13/2024 15:47:36 Ventricular premature complex(es) now present Left bundle-branch block now present Left-axis deviation now present Electronically Signed On 03-20-2025 18:24:44 EDT by RADHA ELAINE M.D.
--- NOTE | 2025-03-20 02:46 | XR_ITS ---
The [address] [address] Patient Name: YUSEF MELGAR MRN: [id number] date: 1950 Sex: M Assigned Patient Location: ER Current Patient Location: ER Accession/Order Number: [id number] Exam Date: 03/20/2025 02:50 Report Date: 03/20/2025 09:37 At the request of: TRUONG MCCORMICK MD Procedure: XR chest 1V Single view chest: CLINICAL HISTORY: SOB COMPARISON: Chest 10/07/2023 FINDINGS: The heart is normal in size. Vascular congestion/interstitial changes similar to the prior study. No new consolidation pneumothorax pleural effusion or free air. XR/XR chest 1V IMPRESSION: VASCULAR CONGESTION/INTERSTITIAL CHANGES. NO CONSOLIDATION TO SUGGEST PNEUMONIA. Impression dictated by: Spike Rodríguez Jr., D.OVishal 03/20/2025 9:37 AM Dictation Location: [facility] Electronically authenticated by: [id number] Y Date: 03/20/2025 09:37
--- NOTE | 2025-03-20 02:47 | ED.GENADUL1 ---
HPI HPI - General Adult General Chief complaint: Shortness of Breath/Dyspnea Stated complaint: Chest Pain Time Seen by Provider: 03/20/25 02:35 Source: patient Mode of arrival: ambulance Limitations: no limitations History of Present Illness HPI narrative: 74-year-old male presented to the emergency department for a chief complaint of shortness of breath. He has had some congestion in his head recently but tonight he got up and he got very short of breath. He checked his pulse ox and it was 84%. He took some deep breaths and was able to get it up to 90% and ultimately called the paramedics and they brought him in here. He has no history of lung disease and has not had a fever or productive cough recently and he does not have any chest pain. Paramedics placed him on oxygen and his O2 sat came up to the mid 90s. No history of PE. Related Data Home Medications ?Medication ?Instructions ?Recorded ?Confirmed allopurinol 300 mg tablet 300 mg PO DAILY 07/09/23 12/13/24 fluticasone propionate 50 1 spray intranasal DAILY PRN 07/09/23 12/13/24 mcg/actuation nasal allergy symptoms spray,suspension (24 Hour Allergy Relief) furosemide 20 mg tablet 20 mg PO DAILY 07/09/23 12/13/24 losartan 100 mg tablet 100 mg PO DAILY 07/09/23 12/13/24 omeprazole 40 mg capsule,delayed 40 mg PO DAILY 07/09/23 12/13/24 release rosuvastatin 10 mg tablet 20 mg PO DAILY 07/09/23 12/13/24 bisoprolol fumarate 10 mg tablet 10 mg PO BID 10/07/23 12/13/24 glimepiride 4 mg tablet 4 mg PO DAILY 10/07/23 12/13/24 tamsulosin 0.4 mg capsule 0.4 mg PO DAILY 10/07/23 12/13/24 empagliflozin 25 mg tablet 25 mg PO QDAY 08/23/24 12/13/24 (Jardiance) amlodipine 5 mg tablet 5 mg PO DAILY 12/13/24 12/13/24 Allergies Allergy/AdvReac Type Severity Reaction Status Date / Time ciprofloxacin (From Cipro) Allergy Severe Diarrhea Verified 08/23/24 16:24 erythromycin base Allergy Severe Diarrhea Verified 08/23/24 16:24 lisinopril Allergy Severe Cough Verified 08/23/24 16:24 Opioid HPI Opioid Management Most Recent Opioid Data: Last Pain Scale 6 08/23/24, 16:31 Review of Systems ROS Narrative A ten point review of systems is negative except as noted above. PFSH PFSH Medical History Bradycardia with 31-40 beats per minute ?R00.1 - Bradycardia, unspecified (ICD-10) Paroxysmal cardiac arrhythmia ?I49.8 - Other specified cardiac arrhythmias (ICD-10) Dizziness ?R42 - Dizziness and giddiness (ICD-10) Edema ?R60.9 - Edema, unspecified (ICD-10) Gout ?M10.9 - Gout, unspecified (ICD-10) Rotator cuff injury ?S46.009A - Unspecified injury of muscle(s) and tendon(s) of the rotator cuff of unspecified shoulder, initial encounter (ICD-10) Surgical History FH: cholecystectomy ?Z83.79 - Family history of other diseases of the digestive system (ICD-10) History of appendectomy ?Z90.49 - Acquired absence of other specified parts of digestive tract (ICD-10) Family History Father Family history of cancer Family history of diabetes mellitus Family history of hypertension Mother Family history of cancer Family history of hypertension Social History Within the past year, how often did you have a drink containing alcohol: never Score interpretation: A score less than 4 is consistent with normal alcohol consumption. Smoking status: Former smoker Non-prescribed substance use: denies use Previous occupational history: retired Highest level of school completed/degree received: some college, no degree Are you now , , , , never or living with a partner: In a typical week, how many times do you talk on the telephone with family, friends, or neighbors: 3 or more times per week How often do you get together with friends or relatives: 3 or more times per week How often do you attend roman catholic or episcopalian services: never Little interest or pleasure in doing things: not at all Feeling down, depressed, or hopeless: not at all Feel stressed/tense/nervous/anxious/difficulty sleeping: not at all Do you think of yourself as: straight/heterosexual Gender Identity: male Exam Narrative Exam Narrative: Nurses note and vital signs reviewed and patient is not hypoxic. General:The patient appears in no apparent respiratory distress. Coughs occasionally. Skin:Warm, dry, no pallor noted.There is no rash noted. Head:Normocephalic, atraumatic Eye: Normal conjunctiva, no drainage Ears, Nose, Mouth, and Throat: oral mucosa is moist. Nares patent. Cardiovascular:Regular Rate and Rhythm Respiratory:Patient is in no distress, no accessory muscle use, lungs are clear to auscultation, no wheezing, rales or rhonchi Back:non-tender GI: Soft and nontender Musculoskeletal: The patient has no evidence of calf tenderness, no pitting edema, symmetrical pulses noted bilaterally Neurological:A&O, normal speech Psychiatric:Cooperative Constitutional Vital Signs, click to edit/add: Last Vital Signs Pulse 79 03/20/25 02:37 Resp 17 03/20/25 02:37 BP 182/111 H 03/20/25 02:37 Pulse Ox 95 03/20/25 02:37 O2 Del Method Nasal Cannula 03/20/25 04:57 O2 Flow Rate 2 03/20/25 04:57 Course Vital Signs Vital signs: Vital Signs Pulse Rate 79 03/20/25 02:37 Respiratory Rate 17 03/20/25 02:37 Blood Pressure 182/111 H 03/20/25 02:37 Pulse Oximetry 95 03/20/25 02:37 Oxygen Delivery Method Nasal Cannula 03/20/25 02:37 Oxygen Delivery Flow Rate 2 03/20/25 02:37 Pulse Rate 79 03/20/25 02:37 Respiratory Rate 17 03/20/25 02:37 Blood Pressure 182/111 H 03/20/25 02:37 Pulse Oximetry 95 03/20/25 02:37 Oxygen Delivery Method Nasal Cannula 03/20/25 04:57 Oxygen Delivery Flow Rate 2 03/20/25 04:57 Medical Decision Making [facility] Narrative Medical decision making narrative: The patient presented with shortness of breath and was found to have congestive heart failure. He was given IV Lasix. Initial troponin was 39 and the repeat 64. Both of these are within the normal level but the second 1 was higher than the first. BNP also elevated. Renal function appropriate. No acute findings on his EKG though he does have a left bundle branch block. Differential Diagnosis Differential Diagnosis: CHF, pneumonia, PE Lab Data Lab results reviewed: Yes I reviewed the patient's lab results Labs: Lab Results 03/20/25 03/20/25 03/20/25 Range/Units 02:40 02:49 03:55 WBC 13.3 H (4.0-11.0) 10^3/uL RBC 5.18 (4.70-6.10) 10^6/uL Hgb 15.1 (14.0-18.0) g/dL Hct 46.2 (42.0-54.0) % MCV 89.2 (80.0-94.0) fL MCH 29.2 (25.9-34.0) pg MCHC 32.7 (29.9-35.2) g/dL RDW 15.8 H (11.0-15.0) % Plt Count 415 (150-450) 10^3/uL MPV 10.3 (9.5-13.5) fL Neut % (Auto) 81.5 H (43.0-75.0) % Lymph % (Auto) 10.8 L (20.5-60.0) % [place] % (Auto) 6.0 (1.7-12.0) % Eos % (Auto) 1.2 (0.9-7.0) % Baso % (Auto) 0.2 (0.2-2.0) % Neut # (Auto) 10.9 H (1.4-6.5) 10^3/uL Lymph # (Auto) 1.4 (1.2-3.8) 10^3/uL [place] # (Auto) 0.8 (0.3-0.8) 10^3/uL Eos # (Auto) 0.2 (0.0-0.7) 10^3/uL Baso # (Auto) 0.0 (0.0-0.1) 10^3/uL Abs Immat Gran (auto) 0.04 H (0.00-0.03) 10^3/uL Imm/Tot Granulo (auto) 0.3 (0.0-0.5) % D-Dimer 0.69 H* (<=0.59) mg/L FEU Sodium 139 (136-145) mmol/L Potassium 4.3 (3.5-5.1) mmol/L Chloride 105 (98-107) mmol/L Carbon Dioxide 22.9 (21.0-32.0) mmol/L Anion Gap 15.4 BUN 31.0 H (7.0-18.0) mg/dL Creatinine 1.29 (0.70-1.30) mg/dL Est GFR ( Amer) >60 (>=60 mL/min/1.73m^2) Est GFR (Non-Af Amer) 54 L (>=60 mL/min/1.73m^2) BUN/Creatinine Ratio 24.0 Glucose 170 H (74-106) mg/dL Calcium 9.1 (8.5-10.1) mg/dL Troponin I High Sens 39.1 63.8 (4.0-76.1) pg/mL NT-Pro-B Natriuret Pep 2610.0 H* (<=1800.0) pg/mL Influenza Type A Ag Negative Influenza Type B Ag Negative SARS-CoV-2 Ag (CV2AG) Negative (NEGATIVE) Imaging Data Chest x-ray: My impression: This x-ray to my interpretation shows CHF Radiologist's impression: CT per radiologist shows no PE, findings overall compatible with CHF Critical Care Time Critical Care Time Critical Care Time: Yes Total Critical Care Time: 45 Attestation: Due to the high probability of sudden and clinically significant deterioration in the patient's condition he/she required the highest level of my preparedness to intervene urgently I provided critical care time including documentation time, medication orders and management, reevaluation, vital sign assessment, ordering and reviewing of lab tests, ordering and reviewing of x-ray studies, and admission orders. Aggregate critical care time is 45 minutes including only time during which I was engaged in work directly related to his/her care and did not include time spent treating other patients simultaneously. Discharge Plan Discharge Chief Complaint: Shortness of Breath/Dyspnea Clinical Impression: Congestive heart failure Patient Disposition: Admitted As Inpatient Time of Disposition Decision: 06:22 Condition: Fair
[2025-03-20 02:58] LABS: Hematocrit 46.2 % (42.0-54.0); Hemoglobin 15.1 g/dL (14.0-18.0); Immature Granulocytes Abs Auto 0.04 10^3/uL (0.00-0.03); Immature Granulocytes Pct Auto 0.3 % (0.0-0.5); Lymphocytes Absolute Auto 1.4 10^3/uL (1.2-3.8); Mean Corpuscular HGB Conc 32.7 g/dL (29.9-35.2); Mean Corpuscular Hemoglobin 29.2 pg (25.9-34.0); Mean Corpuscular Volume 89.2 fL (80.0-94.0); Platelet Count 415 10^3/uL (150-450); Red Blood Count 5.18 10^6/uL (4.70-6.10); White Blood Count 13.3 10^3/uL (4.0-11.0)
[2025-03-20 03:11] LABS: SARS-CoV-2 Ag NEGATIVE (NEGATIVE)
[2025-03-20 03:17] LABS: Anion Gap 15.4; Blood Urea Nitrogen 31.0 mg/dL (7.0-18.0); Calcium 9.1 mg/dL (8.5-10.1); Carbon Dioxide 22.9 mmol/L (21.0-32.0); Chloride 105 mmol/L (98-107); Estimated GFR (African America >60 (>=60 mL/min/1.73m^2); Estimated GFR (Non-African Ame 54 (>=60 mL/min/1.73m^2); Glucose 170 mg/dL (74-106); Potassium 4.3 mmol/L (3.5-5.1); Sodium 139 mmol/L (136-145)
[2025-03-20 04:03] LABS: NT Pro B Type Natriuretic Pept 2610.0 pg/mL (<=1800.0)
[2025-03-20] MEDS: FUROSEMIDE 40 MG/4 ML VIAL IVP (06:51)
--- NOTE | 2025-03-20 07:22 | CA_ITS ---
Patient Name: YUSEF MELGAR MR#: [id number] : 1950 Exam Date: 03/20/2025 Ordering Doctor: KATELYN ASIF ECHOCARDIOGRAM REPORT PROCEDURE: CA ECHO DOPPLER COMPLETE INDICATIONS: CHF, elevated TROP and BNP, hypertension, diabetes COMPARISON: None. DESCRIPTION: COMPLETE ECHOCARDIOGRAM Real-time transthoracic echocardiography with 2D, M-mode, spectral and color flow Doppler performed. QUALITY: Technical quality was fair. LEFT VENTRICLE: Normal chamber size. Moderate concentric left ventricular hypertrophy. Abnormal septal motion likely due to bundle branch block. Low normal global systolic function. Segmental wall motion is difficult to assess due to poor endocardial border definition. Estimated left ventricular ejection fraction is 50-55% LV EF: Lower limits of normal left ventricular ejection fraction, (50-55%). DIASTOLIC: Diastolic function is indeterminate. ATRIAL SEPTUM: LEFT ATRIUM: Normal chamber size. RIGHT ATRIUM: Normal chamber size. RIGHT VENTRICLE: Normal chamber size. Normal right ventricular systolic function. TRICUSPID VALVE: Normal mobility and thickness. No stenosis with trivial regurgitation. Unable to assess right-sided pressures due to the lack of measurable tricuspid regurgitation. MITRAL VALVE: Normal mobility and thickness. No evidence of mitral valve stenosis. There is no mitral annular calcification. Trivial mitral regurgitation. AORTIC VALVE: Normal trileaflet appearance. Thickened aortic valve. Normal leaflet mobility. No evidence of aortic valve stenosis. No aortic regurgitation. AORTIC ROOT: Normal diameter and appearance, measuring 4.0 cm. Ascending aorta is normal in size, measuring 3.2 cm. PULMONIC VALVE: Normal thickness and mobility. No stenosis. PERICARDIUM: No evidence of pericardial effusion. IVC: Not well visualized. PLEURA: CONCLUSION: 1. Moderate concentric left ventricular hypertrophy with low normal systolic function. Estimated LVEF is 50 to 55%. Segmental wall motion is difficult to assess due to lack of good endocardial border definition. 2. Normal right ventricular size and systolic function. 3. No significant valvular dysfunction. 4. Unable to assess right-sided pressures due to lack of measurable tricuspid regurgitation. Adult Echocardiography Procedure Report Left Ventricle LVEDD (3.7 - 5.6 cm): 4.90 cm LVESD (2.2 - 4.0 cm): 3.22 cm LVIVS thickness (0.6 - 1.2 cm): 1.48 cm LVPW thickness (0.5 - 1.0 cm): 1.39 cm e': 0.06 m/s E - e': 6.58 LVOT Max Gradient: 2.71 mm[Hg] LVOT Area (cm2): 0.82 m/s Peak Velocity (LVOT): 0.82 m/s Mean Velocity (LVOT): 0.56 m/s LVOT Diameter 2.67 cm Left Ventricular Ejection Fraction: 50-55 % Left Atrium LA Volume Index (2D A2C): 34.41 ml/m2 Left Atrium Systolic Dimension: 3.73 cm Mitral Valve MV E to A Ratio: 0.52 Mitral Valve A-Wave Peak Velocity: 0.77 m/s Mitral Valve E-Wave Peak Velocity: 0.40 m/s Right Ventricle Aorta AO Root Diam: 3.96 cm Ascending Ao Diam: 3.20 cm Aortic Valve AoV Area (Peak Bogdan): 4.23 cm2, 4.23 cm2 AoV Area (VTI): 4.51 cm2, 4.51 cm2 Peak Velocity(Antegrade Flow): 1.09 m/s Peak Gradient(Antegrade Flow): 4.76 mm[Hg] Mean Velocity(Antegrade Flow): 0.76 m/s Mean Gradient(Antegrade Flow): 2.68 mm[Hg] Velocity Time Integral: 19.94 cm Tricuspid Valve Pulmonic Valve Peak Gradient: 3.68 mm[Hg], 3.82 mm[Hg] Right Atrium Right Atrium Systolic Pressure: 32.48 ml, 32.48 ml Dictated by: Jai Subramanian M.D. on 03/20/2025 at 18:15 Approved by: Jai Subramanian M.D. on 03/20/2025 at 18:21
--- NOTE | 2025-03-20 07:30 | ECG_ITS ---
The [facility] Test Date: 2025-03-20 Pat Name: YUSEF MELGAR Department: Room: [facility] Gender: Male [employer]: : 1950 Requested By: [id number] Order Number: [id number] Reading MD: RADHA ELAINE M.D. Measurements Intervals [place] Rate: 68 P: 12 AL: 202 QRS: -43 QRSD: 165 T: 126 QT: 474 QTc: 506 Interpretive Statements SINUS RHYTHM WITH OCCASIONAL VENTRICULAR PREMATURE COMPLEXES MARKED LEFT AXIS DEVIATION [QRS AXIS < -30] LEFT BUNDLE BRANCH BLOCK [120+ ms QRS DURATION, 80+ ms Q/S IN V1/V2, 85+ ms R IN I/aVL/V5/V6] Compared to ECG 03/20/2025 02:49:59 No significant changes Electronically Signed On 03-20-2025 18:30:42 EDT by RADHA ELAINE M.D.
[2025-03-20 08:21] LABS: Anion Gap 15.4; Blood Urea Nitrogen 28.0 mg/dL (7.0-18.0); Calcium 9.3 mg/dL (8.5-10.1); Carbon Dioxide 25.1 mmol/L (21.0-32.0); Chloride 105 mmol/L (98-107); Cholesterol 111 mg/dL (<=200); Estimated GFR (African America >60 (>=60 mL/min/1.73m^2); Estimated GFR (Non-African Ame 55 (>=60 mL/min/1.73m^2); Glucose 152 mg/dL (74-106); HDL Cholesterol 31 mg/dL (40-60); Magnesium 2.2 mg/dL (1.8-2.4); Potassium 4.5 mmol/L (3.5-5.1); Sodium 141 mmol/L (136-145); Thyroid Stimulating Hormone 1.983 uIU/mL (0.358-3.740); Triglycerides 114 mg/dL (<=150); VLDL CHOLESTEROL 22.8 mg/dL
[2025-03-20] MEDS: INSULIN ASPART 300 UNIT/3 ML PEN SUBQ ×2 (08:56→21:29)
[2025-03-20] MEDS: CLOPIDOGREL BISULFATE 75 MG TABLET 150 MG PO (08:56)
[2025-03-20] MEDS: ENOXAPARIN SODIUM 40 MG/0.4 ML SYRINGE SUBQ (08:57)
[2025-03-20] MEDS: POTASSIUM CHLORIDE 10 MEQ ER TABLET PO ×2 (08:57→21:27)
[2025-03-20] MEDS: CARVEDILOL 12.5 MG TABLET PO ×2 (08:57→21:27)
[2025-03-20] MEDS: PANTOPRAZOLE SODIUM 40 MG TABLET.DR PO (08:57)
[2025-03-20] MEDS: LOSARTAN POTASSIUM 50 MG TABLET PO (08:58)
[2025-03-20] MEDS: ASPIRIN 81 MG TABLET.DR PO (08:58)
[2025-03-20] MEDS: GLIMEPIRIDE 2 MG TABLET PO ×2 (08:58→16:20)
[2025-03-20] MEDS: NITROGLYCERIN 0.1 MG/HR PATCH.TD24 1 PATCH TD (08:59)
--- NOTE | 2025-03-20 13:38 | PM.HP ---
HPI H&P: HPI History of Present Illness Chief complaint: Shortness of breath Narrative: Mr. Car is a 74-year-old gentleman who started having shortness of breath yesterday. He came to the emergency room. He was found to have evidence of CHF. Elevated BNP, vascular congestion on the chest x-ray and a CAT scan. No pulmonary embolism is seen. His troponin was 63. EKG does not show ST elevation or depression. I had accepted to admit patient to the medical and telemetry unit for cardiovascular investigation for his heart failure. I started patient on aspirin, 1 dose of Plavix, beta-janet and statin. Subsequently his troponin had risen up to 112. Patient denies any chest pain. Patient reported that he had a cardiac cath in [place] about 2 years ago. He was told that he does not have any blockage. I added Lovenox 1 mg/kg dosing. Patient denies having any chest pain Opioid HPI Opioid Management Most Recent Pain and Opioid Data: Last Pain Scale 6 08/23/24, 16:31 Review of Systems ROS Status of ROS 10 or more systems reviewed and unremarkable except as noted in history and below PFSH PFSH Medical History Bradycardia with 31-40 beats per minute ?R00.1 - Bradycardia, unspecified (ICD-10) Paroxysmal cardiac arrhythmia ?I49.8 - Other specified cardiac arrhythmias (ICD-10) Dizziness ?R42 - Dizziness and giddiness (ICD-10) Edema ?R60.9 - Edema, unspecified (ICD-10) Gout ?M10.9 - Gout, unspecified (ICD-10) Rotator cuff injury ?S46.009A - Unspecified injury of muscle(s) and tendon(s) of the rotator cuff of unspecified shoulder, initial encounter (ICD-10) Surgical History FH: cholecystectomy ?Z83.79 - Family history of other diseases of the digestive system (ICD-10) History of appendectomy ?Z90.49 - Acquired absence of other specified parts of digestive tract (ICD-10) Family History Father Family history of cancer Family history of diabetes mellitus Family history of hypertension Mother Family history of cancer Family history of hypertension Social History Within the past year, how often did you have a drink containing alcohol: never Score interpretation: A score less than 4 is consistent with normal alcohol consumption. Smoking status: Former smoker Non-prescribed substance use: denies use Previous occupational history: retired Highest level of school completed/degree received: some college, no degree Are you now , , , , never or living with a partner: In a typical week, how many times do you talk on the telephone with family, friends, or neighbors: 3 or more times per week How often do you get together with friends or relatives: 3 or more times per week How often do you attend scientologist or baptism services: never Little interest or pleasure in doing things: not at all Feeling down, depressed, or hopeless: not at all Feel stressed/tense/nervous/anxious/difficulty sleeping: not at all Do you think of yourself as: straight/heterosexual Gender Identity: male Meds Home Medications and Allergies Home Medications ?Medication ?Instructions ?Recorded ?Confirmed ?Type allopurinol 300 mg tablet 300 mg PO DAILY 07/09/23 03/20/25 History fluticasone propionate 50 1 spray intranasal DAILY PRN 07/09/23 03/20/25 History mcg/actuation nasal allergy symptoms spray,suspension (24 Hour Allergy Relief) furosemide 20 mg tablet 20 mg PO DAILY 07/09/23 03/20/25 History losartan 100 mg tablet 100 mg PO DAILY 07/09/23 03/20/25 History omeprazole 40 mg capsule,delayed 40 mg PO DAILY 07/09/23 03/20/25 History release rosuvastatin 10 mg tablet 20 mg PO DAILY 07/09/23 03/20/25 History bisoprolol fumarate 10 mg tablet 10 mg PO BID 10/07/23 03/20/25 History glimepiride 4 mg tablet 4 mg PO DAILY 10/07/23 03/20/25 History tamsulosin 0.4 mg capsule 0.4 mg PO DAILY 10/07/23 03/20/25 History empagliflozin 25 mg tablet 25 mg PO QDAY 08/23/24 03/20/25 History (Jardiance) amlodipine 5 mg tablet 5 mg PO DAILY 12/13/24 03/20/25 History Allergies Allergy/AdvReac Type Severity Reaction Status Date / Time ciprofloxacin (From Cipro) Allergy Severe Diarrhea Verified 08/23/24 16:24 erythromycin base Allergy Severe Diarrhea Verified 08/23/24 16:24 lisinopril Allergy Severe Cough Verified 08/23/24 16:24 Exam Narrative Exam Narrative: [pt is awake and alert. oriented to place, time and person HEENT: [place] conjunctiva and NL buccal mucosa Neck: Supple, no tenderness Endocrine: No Thyromegaly. Vascular: No JVD or carotid bruit. Lymphatic: No cervical lymphadenopathy. Chest: Soft crackles Heart RRR, no extra sound or murmur. Abd: Soft, no tenderness, no rebound and no rigidity. Increase abd girth therefore clinically I could not exclude the possibility of intra abd mass or organomegaly. LE: No cyanosis or clubbing, no varices or edema. Neuro: A A O. Nl speech, comprehension and attention. Nl and symetrical motor and tone examination through out. []] Constitutional Vital Signs, click to edit/add: Last Vital Signs Pulse 74 03/20/25 12:40 Resp 20 03/20/25 12:40 BP 128/82 03/20/25 09:18 Pulse Ox 93 L 03/20/25 12:40 O2 Del Method Nasal Cannula 03/20/25 04:57 O2 Flow Rate 2 03/20/25 04:57 Results Labs Labs: Short CBC 03/20/25 Range/Units 02:40 WBC 13.3 H (4.0-11.0) 10^3/uL Hgb 15.1 (14.0-18.0) g/dL Hct 46.2 (42.0-54.0) % Plt Count 415 (150-450) 10^3/uL BMP 03/20/25 03/20/25 02:40 07:52 Sodium 139 141 Potassium 4.3 4.5 Chloride 105 105 Carbon Dioxide 22.9 25.1 BUN 31.0 H 28.0 H Creatinine 1.29 1.28 Glucose 170 H 152 H Calcium 9.1 9.3 Assessment and Plan Assessment and Plan (1) Congestive heart failure: (2) NSTEMI (non-ST elevated myocardial infarction): Plan Evidence of acute congestive heart failure. Suspect acute diastolic heart failure, probably systolic as well Hypoxic respiratory failure secondary to above. No evidence of pulmonary embolism or pneumonia. Elevated BNP, vascular congestion seen on chest x-ray and CT imaging. I have accepted admit patient to the medical floor Telemetry monitoring, echocardiogram, diuretics. Cardiac consultation Elevated troponin, NSTEMI I excepted patient to be admitted to [place] this morning when his troponin was 63. I already started patient on aspirin, beta-janet and statin. I gave him a dose of Plavix 150 mg daily. I requested repeat troponin which came back elevated at 112 after [facility] [place]. At this time I will change his Lovenox to therapeutic dose 1 mg/kg twice a day. Patient reported that he had a cardiac cath 2 years ago in [place] and was told that he does not have any blockage. Not sure if the initial insult is NSTEMI which had led to heart failure or heart failure causing hypoxic respiratory failure and causing type II high demand [place] Again the patient is already on aspirin, Plavix, beta-janet and statin. I changed his Lovenox to therapeutic dose. Echocardiogram to assess cardiac function, rule out cardiomyopathy or valvular disease. Cardiac consultation had been ordered already for CHF. Patient may require second cardiac catheter to rule out to progression of his CAD. Potentially, patient may need to be transferred to [facility] or [place]. He sees Dr. San with the [facility]. Defer for any diagnostic and therapeutic invention relative to his cardiovascular status to cardiology team Hypertension, fair control Continue beta-janet and ARB Diabetes Resume preadmission home medications. Started him on sliding scale coverage Chronic, subacute medical conditions not listed above, abnormal labs and imaging. These would need to be addressed. Could be addressed later on or in the outpatient setting by PCP collaboration with other needed outpatient providers when time and condition are appropriate.
--- OUTSIDE RECORDS SUMMARY | 2025-03-20 14:09 | XMS_ITS | CCD ---
Author Organization [facility] CliniSynj Care Team Providers Care Roll Builder Name Role Phone PHYSICIAN, DEFAULT Admitting Unavailable [...] Renea G Primary Care Provider Jamie HERNANDEZ, [facility] Primary Care Provider Unavailable Primary Care Provider UnavailMaribeth Celeste Attending Unavailable STEPAN, RENEA Referring Unavailable Neftali Knowles MD Unavailable Jamie HERNANDEZ, [facility] Primary Care Provider Jamie HERNANDEZ, [facility] Primary Care Provider Stepan DO, Renea G Unavailable En NIGHT FILLER, Miriam Unavailable [facility] Jamie HERNANDEZ, [facility] Primary Care Provider [facility] Care Unavailable NEFTALI KNOWLES Attending Unavailable [facility] Care Unavailable DINARY, FAZEL Attending Unavailable CHOWDHRY, VIC Referring Unavailable [facility] Primary Care Unavailable DINARY, FAZEL Attending Unavailable DINARY, FAZEL Referring Unavailable [facility] Primary Care Unavailable NEFTALI KNOWLES Referring Unavailable [facility] Care Unavailable DINARY, FAZEL Attending Unavailable DINARY, FAZEL Referring Unavailable [facility] Primary Care Unavailable Gatica NIGHT FILLER, Miriam Unavailable Stepan DO, Renea G Unavailable NOE KNIGHT Attending Unavailable NOE KNIGHT Attending Unavailable Tomeka Rosado Attending Unavailable Tomeka Rosado Admitting Unavailable Jamie HERNANDEZ, [facility] Primary Care Provider GRACE JUSTICE Referring Unavailable [...] Mcclain Referring Unavailable Alonzo ROSACTomeka Attending Provider [phone] Tomeka Mcgregor Primary Care Provider [phone] Allergies Allergy Classification Reported Allergen(s) Allergy Type Date of Onset Reaction(s) Facility Angiotensin Converting Enzyme (GODWIN) Inhibitors (4 sources) Lisinopril; Translations: [Lisinopril TABS] Drug Allergy 2 Cough OZ-Rdmkqwt-W[facility] Work Phone: Macrolides (antibiotic) (1 source) Erythromycin Drug Allergy 3 Other (See Comments) [facility] Work Phone: Quinolones (antibiotic) (4 sources) Ciprofloxacin; Translations: [ciprofloxacin] Drug Allergy 3 Other (See Comments) [facility] (20 sources) Ciprofloxacin; Translations: [ciprofloxacin] Drug Allergy 3 Unknown, Other, Other (See Comments) [facility] (20 sources) Lisinopril; Translations: [Lisinopril TABS] Drug Allergy 2 Unknown, [facility]ough [facility] DO Work Phone: (5 sources) Amino Acids; Translations: [LISINOPRIL] Drug Allergy 1 Cough [facility] (1 source) Ciprofloxacin Drug Allergy [facility] (1 source) Erythromycin Drug Allergy [facility] (20 sources) Erythromycin; Translations: [ERYTHROMYCIN] Drug Allergy 3 Unknown, GI bleeding, Other (See Comments), GI intolerance, Other [facility] Work Phone: (20 sources) Azithromycin; Translations: [...] Indications: Stage 3a chronic kidney disease (HCC) ([facility]/HCC) Take 1 tablet (10 mg) by mouth [...] MG Indications: Stage 3a chronic kidney disease ([facility]-HCC) , Type 2 diabetes mellitus with stage 3a chronic kidney disease, without long-term current use of insulin ([facility]) Take 1 tablet (25 mg) by [...] 04-12-2024 Chronic Other aftercare (1 source) Other skilled nursing (current) drug therapy; Translations: [OTH HUMAN RESOURCES ASSOCIATE CURRENT DRUG THERAPY] Onset: 06-12-2021 Episodic Other [...] Onset: 01-09-2025 01-09-2025 Other aftercare (2 sources) technician terminal and repeater (current) use of oral hypoglycemic drugs; Translations: [HUMAN RESOURCES ASSOCIATE USE ORAL HYPOGLYCEMIC DX] Onset: 12-12-2020 Episodic [...] Facility XR ANKLE LT MIN 3Von 025 [place] [address] XRay Report Signed Patient: YUSEF CAR MR#: [id number] : 1950 Acct:[id number] Age/Sex: 74 / M ADM Date: 01/09/25 Loc: [facility] Attending Dr: Tomeka Rosado NP Ordering Physician: Tomeka Rosado NP Date of Service: 01/09/25 Procedure(s): XR ankle LT min 3V Accession Number(s): [id number] cc: Tomeka Rosado NP [place] [address] Patient Name: YUSEF CAR MRN: [id number] date: 1950 Sex: M Assigned Patient Location: [facility] Current Patient Location: [facility] Accession/Order Number: [id number] Exam Date: 01/09/2025 10:50 Report Date: 01/09/2025 [...] Dudley M.D. 01/09/2025 10:56 AM Dictation Location: [place] [address] Electronically authenticated by: [id number] Date: 01/09/2025 10:56 Dictated By: Kisha Dudley M.D. Signed By: 01/09/25 1059 DD/ 1056 TD/TT: Coal Briquette Machine Operator: [facility] Radiology, Radiologi MD rocky - 01/09/2025 [place] [address] XRay Report Signed Patient: YUSEF CAR MR#: [id number] : 1950 Acct:[id number] Age/Sex: 74 / M ADM Date: 01/09/25 Loc: [facility] Attending Dr: Tomeka Rosado NP Ordering Physician: Tomeka Rosado NP Date of Service: 01/09/25 Procedure(s): XR ankle LT min 3V Accession Number(s): [id number] cc: Tomeka Rosado NP [place] [id number] Patient Name: YUSEF CAR MRN: [facility]:[id number] date: 1950 Sex: M Assigned Patient Location: [facility] Current Patient Location: [facility] Accession/Order Number: [id number] Exam Date: 01/09/2025 10:50 Report Date: 01/09/2025 [...] Dudley M.D. 01/09/2025 10:56 AM Dictation Location: [place] [address] Electronically authenticated by: [id number] Y Date: 01/09/2025 10:56 Dictated By: Kisha Dudley M.D. Signed By: 01/09/25 1059 DD/ 1056 TD/TT: Coal Briquette Machine Operator: [facility] Radiology Study observation (narrative) [facility] [place] XR ANKLE LT MIN 3VOrdered By : Radiologist Radiology on 01-09-2025 [employer] Work Phone: MRI ABDOMEN W WO CONTRASTon [...] Veronica Patel MD 12/17/[address] [facility] BUN & Creatinineon Creatinine [Mass/Vol] 1.07 mg/dL 0.66 - 1.25 mg/dL [facility] Est, Glom Filt Rate 72 - PINF [facility] Comment on above: GFR calculated using CKD-EPI [...] Interpretation and review of laboratory results Abnormal [facility] Urea nitrogen (BldV) [Mass/Vol] 24 mg/dL High 9 - 20 mg/dL [facility] BUN AND CREATININEon 025 Creatinine [Mass/Vol] 1.07 mg/dL Normal 0.66-1.25 [facility] Comment on above: Performed By: #### B UNCRE #### [place] [address] Ph. [phone] GFR/1.73 sq M.predicted among non-blacks MDRD (S/P/Bld) [Vol rate/Area] 72 mL/min/{1.73_m2} Normal >60 [facility] Comment on above: Result Comment: GFR calculated using CKD-EPI (2020) formula.\X0D0A\Stage 1 Kidney damage (e.g., protein in the urine) with normal GFR >=90\X0D0A\Stage 2 Kidney damage with mild decrease in GFR 60-89\X0D0A\Stage 3a Moderate decrease in GFR 45-59\X0D0A\Stage 3b Moderate decrease in GFR 30-44\X0D0A\Stage 4 Severe reduction in GFR 15-29\X0D0A\Stage 5 Kidney failure <15 Performed By: #### B UNCRE #### [place] [address] Ph. [phone] Urea nitrogen [Mass/Vol] 24 mg/dL High 9-20 [facility] Comment on above: Performed By: #### B UNCRE #### [address] [address] Ph. [phone] No Panel Informationon 11-30 GEMA Mccartney 11/30/2024 [...] neurovascular intact s/p injection. . ( Codes 96507) Procedure, treatment alternatives, risks and benefits explained, specific risks discussed. Consent was given by the patient. Patient was prepped and draped in the usual sterile fashion. [facility] Urine Cultureon 11-28-2024 Bacteria identified Cx Nom (U) No Growth 2 Days PERFORMED BY: [place] [address] PATHOLOGIST COLOR WEIGHER ADE BELTRAN M.D. Normal The [facility] Comment on above: Performed By: #### C UU #### [address] XR ABDOMEN 1Von 11-28-2024 [place] [address] XRay Report Signed Patient: YUSEF CAR MR#: [id number] : 1950 Acct:[id number] Age/Sex: 74 / M ADM Date: 11/28/24 Loc: LAB Attending Dr: Tomeka Rosado NP Ordering Physician: Tomeka Rosado NP Date of Service: 11/28/24 Procedure(s): XR abdomen 1V Accession Number(s): [id number] cc: Tomeka Rosado NP The [place] [phone] Patient Name: YUSEF CAR MRN: [facility]:[id number] date: 1950 Sex: M Assigned Patient Location: LAB Current Patient Location: LAB Accession/Order Number: [id number] Exam Date: 11/28/2024 16:16 Report Date: 11/28/2024 [...] Gallardo M.D. 11/28/2024 4:17 PM Dictation Location: [place] [address] Electronically authenticated by: [id number] Y Date: 11/28/2024 16:17 Dictated By: Jose A Gallardo M.D. Signed By: 11/28/24 1620 DD/ 1617 TD/TT: Coal Briquette Machine Operator: [facility] Radiology Radiologdidi hidalgo MD - 11/28/[address] [address] XRay Report Signed Patient: YUSEF CAR MR#: [id number] : 1950 Acct:[id number] Age/Sex: 74 / M ADM Date: 11/28/24 Loc: LAB Attending Dr: Tomeka Rosado NP Ordering Physician: Tomeka Rosado NP Date of Service: 11/28/24 Procedure(s): XR abdomen 1V Accession Number(s): [id number] cc: Tomeka Rosado NP [address] [address] Patient Name: YUSEF CAR MRN: [id number] date: 1950 Sex: M Assigned Patient Location: LAB Current Patient Location: LAB Accession/Order Number: [id number] Exam Date: 11/28/2024 16:16 Report Date: 11/28/2024 [...] Gallardo M.D. 11/28/2024 4:17 PM Dictation Location: [place] [address] Electronically authenticated by: [id number] Y Date: 11/28/2024 16:17 Dictated By: Jose A Gallardo M.D. Signed By: 11/28/24 1620 DD/ 1617 TD/TT: Coal Briquette Machine Operator: [facility] Radiology Study observation (narrative) [facility] XR ABDOMEN 1VOrdered By: Dwain iolognaresh Radiology on 11-28-2024 [facility] Work Phone: Orders Onlyon 11-23-2024 Orders Only [id number] Nika Car 1950 M Date Provider Department Center 11/23/2024 [id number], HISTORICAL [facility] Family History Problem Relation Age of Onset Angina Mother Cancer Mother Heart attack Mother Heart failure Mother Hypertension Mother Cancer Father Diabetes type II Father Hypertension Father Cancer Sister Diabetes type II Sister Cancer Brother Diabetes type II Brother Hypertension Brother Cancer Brother Diabetes type II Brother Family Status - Relation Status Age at Mother Father Sister Brother Brother [facility] Office Visiton 11-22-2024 Follow-up visit [id number] Nika Car F 1950 M Date Provider [...] Mother Father Sister Brother Brother Level of Service:10523 PA OFFICE/OUTPATIENT ESTABLISHED LOW MDM 20 MIN [facility] L Inj/Asp: L glenohumeralon 08-12-2024 GEMA Mccartney [...] neurovascular intact s/p injection. . ( Codes 63515-VL) Procedure, treatment alternatives, risks and benefits explained, specific risks discussed. Consent was given by the patient. Patient was prepped and draped in the usual sterile fashion. [facility] HbA1c (Bld) [Mass fraction]O rdered By: Ruby Campbell on 07-13-2024 Interpretation and review of laboratory results Abnormal [facility] Laboratory - Hematology and Cell countsOrdered By: Ruby Campbell on 07-13-2024 HbA1c (Bld) [Mass fraction] 7.70 % [facility] 36on 06-30-2024 36 Patient's chinyere hawkins and said he had an EGD today at in [place]. Before the EGD was completed, she said [...] to Dr. Knight for further recommendations. Normal [facility] EGDon 06-30-2024 Esophagogastroduodenosco py Table formatting [...] EXAM Grace Patricia 06/30/2024 1001 Procedure [facility] [address] [facility] [id number] Referring Provider Jeremiah Magaña MD Procedure Provider Jeremiah Magaña MD [facility] EGD Study observation Narrat osvaldo 06-30-2024 Table [...] EXAM Grace Elizabeth[place] 06/30/2024 1001 Procedure Location [facility] [address] [facility] [phone] Referring Provider Jeremiah Magaña MD Procedure Provider Jeremiah Magaña MD [facility] Work Phone: [facility] Work Phone: Radiology Study observation (narrative) [facility] Work Phone: Glucose Test strip manual (B ld) [Mass/Vol]on 06-30-2024 Glucose [Mass/Vol] 193 mg/dL High 74 - 99 mg/dL [facility] Interpretation and review of laboratory results Abnormal [facility] Glucose [Mass/Vol] 193 mg/dL High 74-99 [facility] Comment on above: Performed By: #### 2 341-6 #### OLIMPIA WARE ([id number]) [facility] ([facility]) [id number] [place], [place] [address] Surgical pathology studyon 0 06-30-2024 Surgical pathology study Pathology repor t.total SEE COMMENT Surgical Pathology Case: [id number] Authorizing Provider: Jeremiah Magaña MD Collected: 06/30/2024 0957 Ordering Location: [facility] Received: 06/30/2024 1055 Pathologist: Olimpia Ware MD [...] is submitted in toto in 1 cassette. /[facility] B: Received in formalin, labeled with the patient's name and hospital number and 2,stomach antrum bx, r/o H-pylori, is a fragment of deal soft tissue measuring 0.3 x 0.3 x 0.2 cm. The specimen is submitted in toto in 1 cassette. /[facility] C: Received in formalin, labeled with the patient's name and hospital number and 3,stomach polyp, polyp cardia , is a fragment of deal soft tissue measuring 0.5 x 0.3 x 0.3 cm. The specimen is submitted in toto in 1 cassette. /[facility] Telephoneon 06-30-2024 Telephone [id number] Nika Car ert F 1950 Date Provider [...] at Mother Father Sister Brother Brother Normal [facility] GLUCOSE-POCTon 06-30-2024 Glucose [Mass/Vol] 193 mg/dL High 74 - 99 mg/dL [facility] Interpretation and review of laboratory results Abnormal [facility] Original Ordering Provider: JEREMIAH BURK [facility] Office Visiton 05-31-2024 Follow-up visit [id number] Nika Car ert F 1950 Date Provider [...] Mother Father Sister Brother Brother Level of Service:61083 PA OFFICE/OUTPATIENT ESTABLISHED LOW MDM 20 MIN Normal [facility] ALL CBC WITH AUTO DIFFon BASOPHILS ABSOLUTE AUTO 0 N [facility] Basophils/100 WBC (Bld) 0.1 % Low 0.2 - 2.0 % [facility] Eosinophils/100 WBC (Bld) 0.1 % Low 0.9 - 7.0 % [facility] Erythrocyte distribution width (RBC) [Ratio] 16.1 % High 11.0 - 15.0 % [facility] Hematocrit (Bld) [Volume fraction] 44.8 % 42.0 - 54.0 % [facility] Hemoglobin (Bld) [Mass/Vol] 14.3 g/dL 14.0 - 18.0 g/dL [facility] IMMATURE GRANULOCYTES ABS AUTO 0.04 High [facility] Immature granulocytes/100 WBC (Bld) 0.3 % 0.0 - 0.5 % [facility] Interpretation and review of laboratory results Abnormal [facility] LYMPHOCYTES ABSOLUTE AUTO 1.2 [facility] Lymphocytes/100 WBC (Bld) 8.8 % Low 20.5 - 60.0 % [facility] MCH (RBC) [Entitic mass] 28.1 pg 25. 9 - 34.0 pg [facility] MCHC (RBC) [Mass/Vol] 31.9 g/dL 29.9 - 35.2 g/dL [facility] MCV (RBC) [Entitic vol] 88 fL 80.0 - 94.0 fL [facility] MONOCYTES ABSOLUTE AUTO 0.7 N [facility] Monocytes/100 WBC (Bld) 4.9 % 1.7 - 12.0 % [facility] NEUTROPHILS ABSOLUTE AUTO 11.6 High [facility] Neutrophils/100 WBC (Bld) 85.8 % High 43.0 - 75.0 % [facility] Platelet mean volume (Bld) [Entitic vol] 10 fL 9.5 - 13.5 fL [facility] TBH EO # 0 [facility] PLT 379 [facility] TB RBC 5.09 [facility] TB WBC 13.5 High [facility] No Panel Informationon 04-13 GEMA Mccartney 04/13/2024 12:25 PM L Inj/Asp: L subacromial bursa on 04/13/2024 9:47 AM Indications: pain Details: 21 G needle, posterior approach Medications: 40 mg methylPREDNISolone acetate 40 MG/ML; 1 mL bupivacaine PF 0.5 % Outcome: tolerated well, no immediate complications Utilizing aseptic technique with universal precautions . Pt given injection Left Shoulder SA space ( code 05954 LT) Procedure, treatment alternatives, risks and benefits explained, specific risks discussed. Consent was given by the patient. Patient was prepped and draped in the usual sterile fashion. [facility] XR Shoulder - left 2 Viewson [...] shoulder arthritis concerning for rotator cuff arthropathy [facility] Radiology Study observation (narrative) [facility] MLR HEMOGLOBIN A1Con 024 Glucose [Mass/Vol] 151 mg/dL [facility] HbA1c (Bld) [Mass fraction] 6.9 % High 4.5 - 6.2 % [facility] Comment on above: ADA RECOMMENDED LIMI T 4.0 - 6.0 ADA THERAPEUTIC TARGET < 7.0 ACTION SUGGESTED > 7.0 Interpretation and review of laboratory results Abnormal [facility] CT CHEST W IV CONTRASTon CT CHEST W IV CONTRAST Interpreted By: Lul Escalante and Maltbie Grace STUDY: CT CHEST W IV CONTRAST; 12/31/2023 7:55 am INDICATION: Signs/Symptoms:LUNG NODULE. COMPARISON: CT chest abdomen pelvis 05/26/2023 ACCESSION NUMBER(S): [id number] ORDERING CLINICIAN: NEFTALI KNOWLES TECHNIQUE: Helical data [...] Morales MD. This study was interpreted at [facility], [place], [place]. Signed by: Lul Carver 01/01/2024 9:17 PM Dictation workstation: [id number] [facility] EGDon 12-29-2023 Esophagogastroduodenosco py Table formatting from [...] EXAM Grace Patricia 12/29/2023 1334 Procedure Location [facility] [address] [facility] [address] Referring Provider Jeremiah Magaña MD Procedure Provider Jeremiah Magaña MD [facility] EGD Study observation Narrat osvaldo 12-29-2023 Table [...] BIOPSY SURGICAL PATHOLOGY EXAM Grace Patricia 12/29/2023 8452 2 : r/o H Pylori Tissue STOMACH ANTRUM BIOPSY SURGICAL PATHOLOGY EXAM Grace Patricia 12/29/2023 7054 Procedure Location [facility] [address] [facility] [address] Referring Provider Jeremiah Magaña MD Procedure Provider Jeremiah Magaña MD [facility] Work Phone: [facility] Work Phone: Radiology Study observation (narrative) [facility] Work Phone: Glucose Test strip manual (B ld) [Mass/Vol]on 12-29-2023 Glucose [Mass/Vol] 147 mg/dL High 74 - 99 mg/dL [facility] Interpretation and review of laboratory results Abnormal [facility] Glucose [Mass/Vol] 147 mg/dL High 74-99 [facility] Comment on above: Performed By: #### 2 341-6 #### OLIMPIA WARE (30661) [facility] ([facility]) [address] [place] [address] Surgical pathology studyon 0 12-29-2023 Surgical pathology study Pathology repor t.total SEE COMMENT Surgical Pathology Case: [id number] Authorizing Provider: Jeremiah Magaña MD Collected: 12/29/2023 1332 Ordering Location: [facility] Received: 12/29/2023 1429 Pathologist: Spike Massey MD [...] in toto in one cassette. [facility] Normal [facility] CBC W Auto Differential pane l (Bld)on 12-28-2023 Basophils (Bld) [#/Vol] 0.04 x10*3/uL Normal 0.00-0.10 [facility] Comment on above: Performed By: #### 5 7021-8 #### OLIMPIA WARE (43954) [facility] ([facility]) [address] [place] [address] Basophils/100 WBC (Bld) 0.4 % Normal 0.0-2.0 [facility] Comment on above: Performed By: #### 5 7021-8 #### OLIMPIA WARE (33846) [facility] ([facility]) [address] [place] [address] Eosinophils (Bld) [#/Vol] 0.18 x10*3/uL Normal 0.00-0.40 [facility] Comment on above: Performed By: #### 5 7021-8 #### OLIMPIA WARE (04051) [facility] ([facility]) [address] [place] [address] Eosinophils/100 WBC (Bld) 1.9 % Normal 0.0-6.0 [facility] Comment on above: Performed By: #### 5 7021-8 #### OLIMPIA WARE (46723) [facility] ([facility]) [address] [place] [address] Erythrocyte distribution width (RBC) [Ratio] 16.3 % High 11.5-14.5 [facility] Comment on above: Performed By: #### 5 7021-8 #### OLIMPIA WARE (39480) [facility] ([facility]) [id number] [place] [address] Hematocrit (Bld) [Volume fraction] 43.0 % Normal 41.0-52.0 [facility] Comment on above: Performed By: #### 5 7021-8 #### OLIMPIA WARE (68332) [facility] ([facility]) [id number] [place] [address] Hemoglobin (Bld) [Mass/Vol] 13.4 g/dL Low 13.5-17.5 [facility] Comment on above: Performed By: #### 5 7021-8 #### OLIMPIA WARE (17820) [facility] ([facility]) [address] [place] [address] Immature granulocytes (Bld) [#/Vol] 0.03 x10*3/uL Normal 0.00-0.50 [facility] Comment on above: Performed By: #### 5 7021-8 #### OLIMPIA WARE (34159) [facility] ([facility]) [address] [place] [address] Immature granulocytes/100 WBC (Bld) 0.3 % Normal 0.0-0.9 [facility] Comment on above: Result Comment: Halima ture Granulocyte Count (IG) includes promyelocytes, myelocytes and metamyelocytes but does not include bands. Percent differential counts (%) should be interpreted in the context of the absolute cell counts (cells/UL). Performed By: #### 5 7021-8 #### OLIMPIA WARE (30097) [facility] ([facility]) [address] [place] [address] Lymphocytes (Bld) [#/Vol] 1.72 x10*3/uL Normal 0.80-3.00 [facility] Comment on above: Performed By: #### 5 7021-8 #### OLIMPIA WARE (45972) [facility] ([facility]) [address] [place] [address] Lymphocytes/100 WBC (Bld) 18.0 % Normal 13.0-44.0 [facility] Comment on above: Performed By: #### 5 7021-8 #### OLIMPIA WARE (01172) [facility] ([facility]) [id number] [place] [address] MCH (RBC) [Entitic mass] 27.8 pg Normal 26.0-34.0 [facility] Comment on above: Performed By: #### 5 7021-8 #### OLIMPIA WARE (01785) [facility] ([facility]) [id number] [place] [address] MCHC (RBC) [Mass/Vol] 31.2 g/dL Low 32.0-36.0 [facility] Comment on above: Performed By: #### 5 7021-8 #### OLIMPIA WARE (41212) [facility] ([facility]) [id number] [place] [address] MCV (RBC) [Entitic vol] 89 fL Normal 80-100 [facility] Comment on above: Performed By: #### 5 7021-8 #### OLIMPIA WARE (15095) [facility] ([facility]) [id number] [place] [address] Monocytes (Bld) [#/Vol] 0.75 x10*3/uL Normal 0.05-0.80 [facility] Comment on above: Performed By: #### 5 7021-8 #### OLIMPIA WARE (74545) [facility] ([facility]) [id number] [place] [address] Monocytes/100 WBC (Bld) 7.9 % Normal 2.0-10.0 [facility] Comment on above: Performed By: #### 5 7021-8 #### OLIMPIA WARE (09953) [facility] ([facility]) [address] [place] [address] Neutrophils (Bld) [#/Vol] 6.83 x10*3/uL High 1.60-5.50 [facility] Comment on above: Result Comment: Perc ent differential counts (%) should be interpreted in the context of the absolute cell counts (cells/uL). Performed By: #### 5 7021-8 #### OLIMPIA WARE (64506) [facility] ([facility]) [address] [place] [address] Neutrophils/100 WBC (Bld) 71.5 % Normal 40.0-80.0 [facility] Comment on above: Performed By: #### 5 7021-8 #### OLIMPIA WARE ([id number]) [facility] ([facility]) [address] [place] [address] Nucleated RBC/100 WBC (Bld) [Ratio] 0.0 /100 WBCs Normal 0.0-0.0 [facility] Comment on above: Performed By: #### 5 7021-8 #### OLIMPIA WARE ([id number]) [facility] ([facility]) [address] [place] [address] Platelets (Bld) [#/Vol] 365 x10*3/uL Normal 150-450 [facility] Comment on above: Performed By: #### 5 7021-8 #### OLIMPIA WARE ([id number]) [facility] ([facility]) [address] [place] [address] RBC (Bld) [#/Vol] 4.82 x10*6/uL Normal 4.50-5.90 [facility] Comment on above: Performed By: #### 5 7021-8 #### OLIMPIA WARE ([id number]) [facility] ([facility]) [address] [place] [address] WBC (Bld) [#/Vol] 9.6 x10*3/uL Normal 4.4-11.3 [facility] Comment on above: Performed By: #### 5 7021-8 #### OLIMPIA WARE ([id number]) [facility] ([facility]) [address] [place] [address] Comprehensive metabolic 2000 panelon 12-28-2023 Albumin BCP dye [Mass/Vol] 4.1 g/dL Normal 3.4-5.0 [facility] Comment on above: Performed By: #### 2 4323-8 #### OLIMPIA WARE ([id number]) [facility] ([facility]) [address] [place] [address] ALP [Catalytic activity/Vol] 94 U/L Normal 33-136 [facility] Comment on above: Performed By: #### 2 4323-8 #### OLIMPIA WARE ([id number]) [facility] ([facility]) [address] [place] [address] ALT With P-5'-P [Catalytic activity/Vol] 15 U/L Normal 10-52 [facility] Comment on above: Result Comment: Kanwal ents treated with Sulfasalazine may generate falsely decreased results for ALT. Performed By: #### 2 4323-8 #### OLIMPIA WARE ([id number]) [facility] ([facility]) [address] [place] [address] Anion gap [Moles/Vol] 12 mmol/L Normal 10-20 [facility] Comment on above: Performed By: #### 2 4323-8 #### OLIMPIA WARE ([id number]) [facility] ([facility]) [address] [place] [address] AST With P-5'-P [Catalytic activity/Vol] 13 U/L Normal 9-39 [facility] Comment on above: Performed By: #### 2 4323-8 #### OLIMPIA WARE (45811) [facility] ([facility]) [address] [place] [address] Bilirubin [Mass/Vol] 0.4 mg/dL Normal 0.0-1.2 [facility] Comment on above: Performed By: #### 2 4323-8 #### OLIMPIA WARE (30990) [facility] ([facility]) [address] [place] [address] Calcium [Mass/Vol] 9.6 mg/dL Normal 8.6-10.3 [facility] Comment on above: Performed By: #### 2 4323-8 #### OLIMPIA WARE (73344) [facility] ([facility]) [address] [place] [address] Chloride [Moles/Vol] 104 mmol/L Normal 98-107 [facility] Comment on above: Performed By: #### 2 4323-8 #### OLIMPIA WARE ([id number]) [facility] ([facility]) [address] [place] [address] CO2 [Moles/Vol] 27 mmol/L Normal 21-32 [facility] Comment on above: Performed By: #### 2 4323-8 #### OLIMPIA WARE (54144) [facility] ([facility]) [address] [place] [address] Creatinine [Mass/Vol] 1.18 mg/dL Normal 0.50-1.30 [facility] Comment on above: Performed By: #### 2 4323-8 #### OLIMPIA WARE ([id number]) [facility] ([facility]) [address] [place] [address] Glomerular filtration rate/1.73 sq M.predicted 65 mL/min/1.73m*2 Normal >60 [facility] Comment on above: Result Comment: Calc ulations of estimated GFR are performed using the 2020 CKD-EPI Study Refit equation without the race variable for the IDMS-Traceable creatinine methods. https://jasn.asnjournals.org/content//ASN.917 2956722 Performed By: #### 2 4323-8 #### OLIMPIA WARE ([id number]) [facility] ([facility]) [address] [place] [address] Glucose [Mass/Vol] 171 mg/dL High 74-99 [facility] Comment on above: Performed By: #### 2 4323-8 #### OLIMPIA WARE ([id number]) [facility] ([facility]) [address] [place] [address] Potassium [Moles/Vol] 5.0 mmol/L Normal 3.5-5.3 [facility] Comment on above: Performed By: #### 2 4323-8 #### OLIMPIA WARE (40727) [facility] ([facility]) [address] [place] [address] Protein [Mass/Vol] 6.7 g/dL Normal 6.4-8.2 [facility] Comment on above: Performed By: #### 2 4323-8 #### OLIMPIA WARE (90392) [facility] ([facility]) [address] [place] [address] Sodium [Moles/Vol] 138 mmol/L Normal 136-145 [facility] Comment on above: Performed By: #### 2 4323-8 #### OLIMPIA WARE (89651) [facility] ([facility]) [address] [place] [address] Urea nitrogen [Mass/Vol] 23 mg/dL Normal 6-23 [facility] Comment on above: Performed By: #### 2 4323-8 #### OLIMPIA WARE ([id number]) [facility] ([facility]) [address] [place] [address] BUN & Creatinineon 4 Creatinine [Mass/Vol] 1.28 [...] 25 mg/dL High 9 - 20 mg/dL [facility] ENDOSCOPIC ULTRASOUND (UPPER )on 10-07-2023 ENDOSCOPIC ULTRASOUND [...] EXAM Mayelin Page 10/07/2023 0811 Procedure [facility] [address] [facility] [address] [place] [address] [facility] [place] [address] Procedure Provider Jeremiah Magaña MD [facility] Endoscopic Ultrasound (Upper )on 10-07-2023 Table formatting [...] EXAM Mayelin Page 10/07/2023 0811 Procedure Location [facility] [address] [facility] [address] [place] [address] [facility] [place] [address] Procedure Provider Jeremiah Magaña MD [facility] Work Phone: [facility] Work Phone: Radiology Study observation (narrative) [facility] Work Phone: Glucose Test strip manual (B ld) [Mass/Vol]on 10-07-2023 Glucose [Mass/Vol] 149 mg/dL High 74 - 99 mg/dL [facility] Interpretation and review of laboratory results Abnormal [facility] Glucose [Mass/Vol] 149 mg/dL High 74-99 [facility] Comment on above: Performed By: #### 2 341-6 #### OLIMPIA WARE (79089) [facility] ([facility]) [address] [place] [address] Surgical pathology studyon 0 10-07-2023 Surgical pathology study Pathology repor t.total SEE COMMENT Surgical Pathology Case: [id number] Authorizing Provider: Jeremiah Magaña MD Collected: 10/07/2023 0811 Ordering Location: [facility] Received: 10/07/2023 0942 Pathologist: Gilda Butterfield Asa, [...] determined by the Department of Pathology at [facility]. The FDA does not require this test to go through premarket FDA review. This test is used for clinical purposes. It should not be regarded as investigational or for research. This laboratory is certified under the Clinical Laboratory Improvement Amendments (CLIA) as qualified to perform high complexity clinical laboratory testing. The assays were performed with appropriate positive and negative controls which stained appropriately. [facility] URINE CULTUREon 07-31-2023 Bacteria identified Cx Nom (U) MICROBIOLOGY REPORT [facility], [address] [place] [address], [place], [address] PATIENT: YUSEF CAR LOCATION: [facility] - - : 1950 AGE: 73 SEX: M ADM: 07/31/23 Att. Physician: PHYSICIAN, NON-STAFF Order Id: [id number] Req. Physician: PHYSICIAN, NON-STAFF Source: urine, clean catch Site: Collected: 07/31/23 11:50 Current Antibiotics: not stated Antibiotics comment: - C O M M E N T S NV - Source of Urine Collection? Urine clean catch STATUS OF ORDERED AND REPORTED TESTS URINE CULTURE FINAL 08/02/23 URINE CULTURE FINAL 08/02/23 07:56 08/01/23 No growth-preliminary 08/02/23 No growth Normal [facility] Study Interpretation of outs jeanna studyon 07-28-2023 There is no result f or this study. This is a placeholder for comparison films only. [place] E[facility] Study observation Narrat iveon 06-10-2023 Table [...] EXAM Mayelin Page 06/10/2023 0859 Procedure Location [facility] [address] [facility] [id number] Referring Provider Jazlyn Mcarthur, Mica Plate Layer Hand-semiautomatic stitcher operator [address] [address] [facility] [place] [address] Procedure Provider Vic Mcrae MD [facility] Work Phone: [facility] Work Phone: Radiology Study observation (narrative) [facility] Work Phone: Glucose Test strip manual (B ld) [Mass/Vol]on 06-10-2023 Glucose [Mass/Vol] 113 mg/dL High 74 - 99 mg/dL [facility] Interpretation and review of laboratory results Abnormal [facility] CT Chest and Abdomen and Pel vis [...] Juanjose Walters 05/27/2023 11:47 AM Dictation workstation: [id number] [facility]AL Interpreted By: Juanjose Jefferson, STUDY: CT CHEST ABDOMEN PELVIS W IV CONTRAST; 05/26/2023 10:16 am INDICATION: 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 COMPARISON: CT abdomen 12/25/2020 ACCESSION NUMBER(S): [id number] ORDERING CLINICIAN: JAZLYN MCARTHUR TECHNIQUE: Contiguous axial [...] scans. COMPARISON: CT abdomen 12/25/2020 ACCESSION NUMBER(S): [id number] ORDERING CLINICIAN: JAZLYN MCARTHUR TECHNIQUE: Contiguous axial [...] Juanjose Walters 05/27/2023 11:47 AM Dictation workstation: [id number] [facility] Work Phone: CT Chest and Abdomen and Pel vis W contrast IVOrdered By: Juanjose Walters on 05-27-2023 [facility] Work Phone: CT Chest and Abdomen and Pel vis W contrast Kristie 05-26-2023 Radiology Study observation (narrative) [facility] Work Phone: CBC AND DIFFERENTIALon 05-12 % AUTOMATED IMMATURE GRAN Canceled Normal [facility] Comment on above: Order Comment: TEST CBC AND DIFFERENTIAL WAS CANCELLED, 05/12/2022 10:[address] wagoner doesnot needed. Result Comment: Halima ture Granulocyte Count (IG) includes promyelocytes, myelocytes and metamyelocytes but does not include bands. Percent differential counts (%) should be interpreted in the context of the absolute cell counts (cells/L). Performed By: #### C BCDF #### [facility] [address] [place] [address] % BASOPHIL Canceled Normal [facility] Comment on above: Order Comment: TEST CBC AND DIFFERENTIAL WAS CANCELLED, 05/12/2022 10:[address] ciaran mcmanus needed. Performed By: #### C BCDF #### [address] [place] [address] % EOSINOPHIL Canceled Normal [facility] Comment on above: Order Comment: TEST CBC AND DIFFERENTIAL WAS CANCELLED, 05/12/2022 10:[address] ciaran mcmanus needed. Performed By: #### C BCDF #### [address] [place] [address] % LYMPHOCYTE Canceled Normal [facility] Comment on above: Order Comment: TEST CBC AND DIFFERENTIAL WAS CANCELLED, 05/12/2022 10:[address] ciaran mcmanus needed. Performed By: #### C BCDF #### [address] [place] [address] % MONOCYTE Canceled Normal [facility] Comment on above: Order Comment: TEST CBC AND DIFFERENTIAL WAS CANCELLED, 05/12/2022 10:[address] ciaran mcmanus needed. Performed By: #### C BCDF #### [address] [place] [address] % NEUTROPHIL Canceled Normal [facility] Comment on above: Order Comment: TEST CBC AND DIFFERENTIAL WAS CANCELLED, 05/12/2022 10:[address] ciaran mcmanus needed. Performed By: #### C BCDF #### [address] [place] [address] BASOPHIL Canceled Normal [facility] Comment on above: Order Comment: TEST CBC AND DIFFERENTIAL WAS CANCELLED, 05/12/2022 10:[address] ciaran mcmanus needed. Performed By: #### C BCDF #### [address] [place] [address] DIFFERENTIAL Canceled Normal [facility] Comment on above: Order Comment: TEST CBC AND DIFFERENTIAL WAS CANCELLED, 05/12/2022 10:[address] ciaran mcmanus needed. Performed By: #### C BCDF #### [address] [place] [address] EOSINOPHIL Canceled Normal [facility] Comment on above: Order Comment: TEST CBC AND DIFFERENTIAL WAS CANCELLED, 05/12/2022 10:[address] ciaran mcamnus needed. Performed By: #### C BCDF #### [address] [place] [address] HCT Canceled Normal [facility] Comment on above: Order Comment: TEST CBC AND DIFFERENTIAL WAS CANCELLED, 05/12/2022 10:[address] ciaran mcmanus needed. Performed By: #### C BCDF #### [address] [place] [address] HGB Canceled Normal [facility] Comment on above: Order Comment: TEST CBC AND DIFFERENTIAL WAS CANCELLED, 05/12/2022 10:[address] ciaran mcmanus needed. Performed By: #### C BCDF #### [address] [place] [address] LYMPHOCYTE Canceled Normal [facility] Comment on above: Order Comment: TEST CBC AND DIFFERENTIAL WAS CANCELLED, 05/12/2022 10:[address] ciaran mcmanus needed. Performed By: #### C BCDF #### [address] [place] [address] MCHC Canceled Normal [facility] Comment on above: Order Comment: TEST CBC AND DIFFERENTIAL WAS CANCELLED, 05/12/2022 10:[address] ciaran mcmanus needed. Performed By: #### C BCDF #### [address] [place] [address] MCV Canceled Normal [facility] Comment on above: Order Comment: TEST CBC AND DIFFERENTIAL WAS CANCELLED, 05/12/2022 10:[address] ciaran mcmanus needed. Performed By: #### C BCDF #### [address] [place] [address] MONOCYTE Canceled [facility] Comment on above: Order Comment: TEST CBC AND DIFFERENTIAL WAS CANCELLED, 05/12/2022 10:[address] ciaran mcmanus needed. Performed By: #### C BCDF #### [address] [place] [address] NEUTROPHIL Canceled Normal [facility] Comment on above: Order Comment: TEST CBC AND DIFFERENTIAL WAS CANCELLED, 05/12/2022 10:[address] ciaran mcmanus needed. Performed By: #### C BCDF #### [address] [place] [address] PLT Canceled Normal [facility] Comment on above: Order Comment: TEST CBC AND DIFFERENTIAL WAS CANCELLED, 05/12/2022 10:[address] ciaran mcmanus needed. Performed By: #### C BCDF #### [address] [place] [address] RBC Canceled Normal [facility] Comment on above: Order Comment: TEST CBC AND DIFFERENTIAL WAS CANCELLED, 05/12/2022 10:[address] ciaran mcmanus needed. Performed By: #### C BCDF #### [address] [place] [address] RDW-CV Canceled Normal [facility] Comment on above: Order Comment: TEST CBC AND DIFFERENTIAL WAS CANCELLED, 05/12/2022 10:[address] ciaran mcmanus needed. Performed By: #### C BCDF #### [address] [place] [address] WBC Canceled Normal [facility] Comment on above: Order Comment: TEST CBC AND DIFFERENTIAL WAS CANCELLED, 05/12/2022 10:[address] ciaran mcmanus needed. Performed By: #### C BCDF #### [address] [place] [address] COMPREHENSIVE PANELon 2021 ALBUMIN Canceled [facility] Comment on above: Order Comment: TEST COMPREHENSIVE PANEL WAS CANCELLED, 05/12/2022 10:[address] ciaran mcmanus needed. Performed By: #### C MP #### [address] [place] [address] ALKALINE PHOSPHATASE Canceled Normal [facility] Comment on above: Order Comment: TEST COMPREHENSIVE PANEL WAS CANCELLED, 05/12/2022 10:[address] ciaran mcmanus needed. Performed By: #### C MP #### [address] [place] [address] ALT Canceled Normal [facility] Comment on above: Order Comment: TEST COMPREHENSIVE PANEL WAS CANCELLED, 05/12/2022 10:[address] ciaran mmcanus needed. Result Comment: Kanwal ents treated with Sulfasalazine may generate falsely decreased results for ALT. Performed By: #### C MP #### [address] [place] [address] ANION GAP Canceled Normal [facility] Comment on above: Order Comment: TEST COMPREHENSIVE PANEL WAS CANCELLED, 05/12/2022 10:[address] ciaran mcmanus needed. Performed By: #### C MP #### [address] [place] [address] AST Canceled Normal [facility] Comment on above: Order Comment: TEST COMPREHENSIVE PANEL WAS CANCELLED, 05/12/2022 10:[address] ciaran mcmanus needed. Performed By: #### C MP #### [address] [place] [address] BICARBONATE Canceled Normal [facility] Comment on above: Order Comment: TEST COMPREHENSIVE PANEL WAS CANCELLED, 05/12/2022 10:[address] ciaran mcmanus needed. Performed By: #### C MP #### [address] [place] [address] BILIRUBIN,TOTAL Canceled Normal [facility] Comment on above: Order Comment: TEST COMPREHENSIVE PANEL WAS CANCELLED, 05/12/2022 10:[address] ciaran mcmanus needed. Performed By: #### C MP #### [address] [place] [address] CALCIUM Canceled Normal [facility] Comment on above: Order Comment: TEST COMPREHENSIVE PANEL WAS CANCELLED, 05/12/2022 10:[address] ciaran mcmanus needed. Performed By: #### C MP #### [address] [place] [address] CHLORIDE Canceled [facility] Comment on above: Order Comment: TEST COMPREHENSIVE PANEL WAS CANCELLED, 05/12/2022 10:[address] ciaran mcmanus needed. Performed By: #### C MP #### [address] [place] [address] CREATININE Canceled [facility] Comment on above: Order Comment: TEST COMPREHENSIVE PANEL WAS CANCELLED, 05/12/2022 10:[address] ciaran mcmanus needed. Performed By: #### C MP #### [address] [place] [address] eGFR FEMALE Canceled [facility] Comment on above: Order Comment: TEST COMPREHENSIVE PANEL WAS CANCELLED, 05/12/2022 10:[address] ciaran mcmanus needed. Result Comment: CALC ULATIONS OF ESTIMATED GFR ARE PERFORMED USING THE 2020 CKD-EPI STUDY REFIT EQUATION WITHOUT THE RACE VARIABLE FOR THE IDMS-TRACEABLE CREATININE METHODS. https://jasn.asnjournals.org/content/earlyASN.861 9504047 Performed By: #### C MP #### [address] [place] [address] eGFR MALE Canceled [facility] Comment on above: Order Comment: TEST COMPREHENSIVE PANEL WAS CANCELLED, 05/12/2022 10:[address] ciaran mcmanus needed. Result Comment: CALC ULATIONS OF ESTIMATED GFR ARE PERFORMED USING THE 2020 CKD-EPI STUDY REFIT EQUATION WITHOUT THE RACE VARIABLE FOR THE IDMS-TRACEABLE CREATININE METHODS. https://jasn.asnjournals.org/content/earlyASN.480 7231484 Performed By: #### C MP #### [address] [place] [address] GLUCOSE Canceled [facility] Comment on above: Order Comment: TEST COMPREHENSIVE PANEL WAS CANCELLED, 05/12/2022 10:[address] ciaran mcmanus needed. Performed By: #### C MP #### [address] [place] [address] POTASSIUM Canceled Normal [facility] Comment on above: Order Comment: TEST COMPREHENSIVE PANEL WAS CANCELLED, 05/12/2022 10:[address] ciaran mcmanus needed. Performed By: #### C MP #### [address] [place] [address] SODIUM Canceled Normal [facility] Comment on above: Order Comment: TEST COMPREHENSIVE PANEL WAS CANCELLED, 05/12/2022 10:[address] ciaran mcmanus needed. Performed By: #### C MP #### [address] [place] [address] TOTAL PROTEIN Canceled Normal [facility] Comment on above: Order Comment: TEST COMPREHENSIVE PANEL WAS CANCELLED, 05/12/2022 10:[address] ciaran mcmanus needed. Performed By: #### C MP #### [address] [place] [address] UREA NITROGEN Canceled Normal [facility] Comment on above: Order Comment: TEST COMPREHENSIVE PANEL WAS CANCELLED, 05/12/2022 10:[address] ciaran mcmanus needed. Performed By: #### C MP #### [address] [place] [address] Clinic Note - Heme Onc-Follo w Up Visiton 05-12-2022 Clinic Note - Heme Onc-Follow Up Visit Patient Visit Information: Visit Type: Follow Up Visit History of Present Illness: ID Statement: YUSEF CAR is a 72 year old Male Chief Complaint: Duodenal neuroendocrine tumor Interval History: 71 years old gentleman from [place], [place] who has been referred to me from [facility]. The patient complained of acid reflux [...] Weights & Heights: Date: Weight/Scale Type:Height: 26-Aug-2021 13:27628 kg / standing lbkuh342.8 cm 20-May-2021 12:70537 kg / standing zrmun455.8 cm 04-Feb-2021 09:28533 kg / standing .8 cm Physical Exam: [...] 26-Aug-2021 1 (more content not included)... Normal [facility] Clinic Note - Intakeon 05-12 [...] 3 Weights & HeightsDate: Weight/Scale Type:Height: 26-Aug-2021 13:05370 kg / standing qmkwa444.8 cm 20-May-2021 12:37494 kg / standing .8 cm SpO2 (%)94 % SpO2 Patient Onroom [...] 12-May-2022 09:56 by Kindra Maher (PCNA) Normal [facility] GLUCOSE-POCTon 04-29-2022 Glucose [Mass/Vol] 139 mg/dL High 74 - 99 [facility] Comment on above: Performed By: #### G MARIXA #### [facility] [address] [address] [place] [address] Laboratory - Chemistry and C hemistry - challengeon 04-29-2022 Glucose [Mass/Vol] 139 mg/dL above high threshold 74 - 99 [facility] Work Phone: No Panel Informationon 04-29 [facility] Work Phone: [email or web address] [facility] Work Phone: [facility] Work Phone: Order Reconciliationon 04-29 Order Reconciliation [...] 1 tab(s) orally once a day Normal [facility] Surgical Pathology Depar tmenton 04-29-2022 [facility] Surgical Pathology Department Name YUSEF CAR Pathologist: DU LUGO Date of Procedure: 04/29/2022 Date Received: 04/29/2022 Date Reported 05/05/2022 Submitting Physician: JEREMIAH MAGAÑA MD Location: [facility] Copy To/Referring/Attending: VANESSA STEELE MD Other External [...] reviewed this case. Diagnostic interpretation performed at [facility] [address] [facility] [place] [address] Clinical History: Follow up history of duodenal carcinoma Specimens Submitted As: A: DUODENAL BULB B: STOMACH / ANTRUM BIOPSIES C: STOMACH / BODY BIOPSIES D: GASTRIC POLYP Gross Description: A: Received in formalin, labeled with the patient's name and hospital number and A-BX duodenal bulb , are multiple fragments of dela, soft tissue aggregating to 1.2 x 0.3 [...] positive and negative controls which stained appropriately. [facility] Department of Pathology [address] [place] [address] Normal [facility] Comment on above: Performed By: #### [facility] #### [facility] Surgical Pathology Department [address] [place] [address] Upper GI endoscopyon 04-29- 022 Upper GI endoscopy PATIENTNAME Patient Name: Yusef Car EXAMDATE Procedure Date: 04/29/2022 7:25 AM PATIENTID PATIENTACCOUNTNUM PATIENTDOB Date of : 1950 ADMITTYPE Admit Type: Outpatient PATIENTROOM Site: [facility] 1 ETHNICITY Ethnicity: Not or RACE Race: White PROVDR Attending MD: Jeremiah Magaña MD, [id number] ENDOPROCEDURENAME Procedure: Upper GI endoscopy INDICATION Indications: [...] (Doctor), Martha Kyle RN (Nurse), Moi Huff, [place] EDREFPROVIDER Referring: Vanessa Steele CURRENT_MEDS Medicines: See [...] diet. 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 All rights reserved. The codes documented in this report are preliminary and upon insurance coder review may be revised to meet current compliance requirements. ATTDRPART Attending Participa (more content not included)... Normal [facility] General/Metabolic - Estabroxannes olga lidia 12-05-2021 General/Metabolic [...] history, the 84 gene Multi-Cancer Panel from [facility] was recommended and ordered. - I called [...] no significant history of cancer and/or Ashkenazi Anglican ancestry on their mother's side, no genetic [...] since our discussion today. Lulu Calle MS, [facility] Licensed Genetic Counselor [place] [facility] [phone]. Chief Complaint Patient seen for discussion of [...] Dec 05 2021 3:54PM EST (Review) Normal [facility] Office Visit (Genetics)on Follow-up visit Patient [...] 84-gene Multi-Cancer + RNA analysis panel from [facility]. Our discussion is summarized below. We reviewed [...] affected individuals), and endocrine tumors of the fuypub-crebhn-kpujhkxbva (GEP) tract. Clinically, MEN1 is diagnosed when [...] However, luxury insurances such as life insurance, skilled nursing care insurance, and/or private disability insurance companies [...] hereditary ca (more content not included)... Normal [facility] Clinic Note - Heme Onc-Follo w Up Visiton 08-26-2021 Clinic Note - Heme Onc-Follow Up Visit Patient Visit Information: Visit Type: Follow Up Visit History of Present Illness: ID Statement: Mr. Car is a 71 year old male Chief Complaint: Duodenal neuroendocrine tumor Interval History: 71 years old gentleman from [place], [place] who has been referred to me from [facility]. The patient complained of acid reflux [...] Weights & Heights: Date: Weight/Scale Type:Height: 26-Aug-2021 13:84234 kg / standing hesku403.8 cm 20-May-2021 12:57178 kg / standing zwhas529.8 cm 04-Feb-2021 09:05925 kg / standing erehw158.8 cm Physical Exam: Constitutional: Appears well and [...] 13 Complet (more content not included)... Normal [facility] Clinic Note - Intakeon 08-26 Clinic Note - Intake Patient Visit Information: Visit TypeFollow Up Visit Source of Informationpatient Accompanied byspouse Admission Information: Admission Since Last VisitYes [facility] Admission [id number] Admission Reason/Detailssepsis and removal of gall bladder [...] 3 Weights & HeightsDate: Weight/Scale Type:Height: 20-May-2021 12:23841 kg / standing oztsp942.8 cm 04-Feb-2021 09:10891 kg / standing lhfuq268.8 cm 07-Jan-2021 13:50555 kg / standing ozyrz001.8 cm SpO2 (%)95 % SpO2 Patient Onroom [...] 26-Aug-2021 13:50 by Latanya Bhat (PCNA) Normal [facility] CULTURE BLOODon 06-09-2021 Microscopic examination [...] F Trimethoprim/Sulfamethoxa zole <=20 S F Normal [facility] Comment on above: Performed By: #### C NICOLE #### [facility] [address] [place] [address] Dr. Freda Wayne CBC AUTO DIFFon 06-06-2021 BASO # 0.0 103/ul Normal 0.0-0.1 [facility] Comment on above: Performed By: #### P OCGLUC #### [facility] [address] [address] José Luis Kisha Basophils/100 WBC (Bld) 0.1 % Critically low 0.2-2.0 [facility] Comment on above: Performed By: #### P OCGLUC #### [facility] [address] [place] [address] José Luis Kisha EO # 0.0 103/ul Normal 0.0-0.7 [facility] Comment on above: Performed By: #### P OCGLUC #### [facility] [address] [place] [address] José Luis Kisha Eosinophils/100 WBC (Bld) 0.0 % Critically low 0.9-7.0 [facility] Comment on above: Performed By: #### P OCGLUC #### [facility] [address] [place] [address] José Luis Beard Erythrocyte distribution width (RBC) [Ratio] 15.1 % Critically high 11.0-15.0 [facility] Comment on above: Performed By: #### P OCGLUC #### [facility] [address] [place] [address] José Luis Beard Hematocrit (Bld) [Volume fraction] 34.7 % Critically low 42.0-54.0 [facility] Comment on above: Performed By: #### P OCGLUC #### [facility] [address] [place] [address] José Luis Kisha Hemoglobin (Bld) [Mass/Vol] 10.9 g/dL Critically low 14.0-18.0 [facility] Comment on above: Performed By: #### P OCGLUC #### [facility] [address] [place] [address] José Luis Kisha IG # 0.04 10e3/ul Critically high 0.00-0.03 [facility] Comment on above: Performed By: #### P OCGLUC #### [facility] [address] [place] [address] José Luis Beard IG % 0.4 % Normal 0.0-0.5 [facility] Comment on above: Performed By: #### P OCGLUC #### [facility] [address] [place] [address] José Luis Beard LYMPH # 0.5 103/ul Critically low 1.2-3.8 [facility] Comment on above: Performed By: #### P OCGLUC #### [facility] [address] [place] [address] José Luis Beard Lymphocytes/100 WBC (Bld) 5.5 % Critically low 20.5-60.0 [facility] Comment on above: Performed By: #### P OCGLUC #### [facility] [address] [place] [address] José Luis Beard MANUAL DIFF REQ NO Normal [facility] Comment on above: Performed By: #### P OCGLUC #### [facility] [address] [place] [address] José Luis Beard MCH (RBC) [Entitic mass] 28.2 pg Normal 25.9-34.0 [facility] Comment on above: Performed By: #### P OCGLUC #### [facility] [address] [place] [address] José Luis Beard MCHC (RBC) [Mass/Vol] 31.4 g/dL Normal 29.9-35.2 [facility] Comment on above: Performed By: #### P OCGLUC #### [facility] [address] [place] [address] José Luis Beard MCV (RBC) [Entitic vol] 89.9 fL Normal 80.0-94.0 [facility] Comment on above: Performed By: #### P OCGLUC #### [facility] [address] [place] [address] José Luisdinh Beard MONO # 0.9 103/ul Critically high 0.3-0.8 [facility] Comment on above: Performed By: #### P OCGLUC #### [facility] [address] [place] [address] José Luis Beard Monocytes/100 WBC (Bld) 9.4 % Normal 1.7-12.0 [facility] Comment on above: Performed By: #### P OCGLUC #### [facility] [address] [place], [place] [id number] José Luis Beard NEUT # 8.1 103/ul Critically high 1.4-6.5 [facility] Comment on above: Performed By: #### P OCGLUC #### [facility] [address] [place], [place] [id number] José Luis Beard Neutrophils/100 WBC (Bld) 84.6 % Critically high 43.0-75.0 [facility] Comment on above: Performed By: #### P OCGLUC #### [facility] [address] [place], [place] [id number] José Luis Beard Platelet mean volume (Bld) [Entitic vol] 10.5 fL Normal 9.5-13.5 [facility] Comment on above: Performed By: #### P OCGLUC #### [facility] [address] [place] [address] José Luis Beard PLT 263 103/ul Normal 150-450 [facility] Comment on above: Performed By: #### P OCGLUC #### [facility] [address] [place], [place] [id number] José Luis Beard RBC 3.86 106/ul Critically low 4.70-6.10 [facility] Comment on above: Performed By: #### P OCGLUC #### [facility] [address] [place], [place] [id number] José Luis Beard WBC 9.6 103/ul Normal 4.0-11.0 [facility] Comment on above: Performed By: #### P OCGLUC #### [facility] [address] [place], [place] [id number] José Luis Beard CULTURE BLOODon 06-06-2021 Microscopic examination of blood, culture Culture Observations: NO GROWTH AT 5 DAYS. Normal [facility] Comment on above: Performed By: #### C BCMAN #### [facility] [address] [place], [place] [id number] Dr. Freda Wayne POINT OF CARE GLUCOSEon 05-16 Glucose [Mass/Vol] 192 mg/dL Critically high 74-106 [facility] Comment on above: Performed By: #### P OCGLUC #### [facility] [address] [address] [address] Freda Wayne PROF 14(COMP METB)on 021 Albumin [Mass/Vol] 2.6 g/dL Critically low 3.5-5.0 [facility] Comment on above: Performed By: #### P OCGLUC #### [facility] [address] [place], [place] [id number] José Luis Kisha Albumin/Globulin [Mass ratio] 0.7 {ratio} Normal [facility] Comment on above: Performed By: #### P OCGLUC #### [facility] [address] [place] [address] José Luis Kisha ALP [Catalytic activity/Vol] 233 U/L Critically high 38-126 [facility] Comment on above: Performed By: #### P OCGLUC #### [facility] [address] [place] [address] José Luis Kisha ALT [Catalytic activity/Vol] 103 U/L Critically high 21-72 [facility] Comment on above: Performed By: #### P OCGLUC #### [facility] [address] [place] [address] José Luis Kisha Anion gap [Moles/Vol] 12.2 mmol/L Normal [facility] Comment on above: Performed By: #### P OCGLUC #### [facility] [address] [place] [address] José Luis Kisha AST [Catalytic activity/Vol] 44 U/L Normal 17-59 [facility] Comment on above: Performed By: #### P OCGLUC #### [facility] [address] [place] [address] José Luis Kisha Bilirubin [Mass/Vol] 0.4 mg/dL Normal 0.2-1.3 [facility] Comment on above: Performed By: #### P OCGLUC #### [facility] [address] [place], [place] [address] José Luis Kisha Calcium [Mass/Vol] 9.0 mg/dL Normal 8.4-10.2 [facility] Comment on above: Performed By: #### P OCGLUC #### [facility] [address] [place] [address] José Luis Kisha Chloride [Moles/Vol] 102 mmol/L Normal 98-107 [facility] Comment on above: Performed By: #### P OCGLUC #### [facility] [address] [address] José Luis Kisha CO2 [Moles/Vol] 26.9 mmol/L Normal 22.0-30.0 [facility] Comment on above: Performed By: #### P OCGLUC #### [facility] [address] [place] [address] José Luis Kisha Creatinine [Mass/Vol] 1.22 mg/dL Normal 0.66-1.25 [facility] Comment on above: Performed By: #### P OCGLUC #### [facility] [address] [place] [address] José Luis Kisha EGFR-AF CUBAN >60 Normal >=60 [facility] Comment on above: Performed By: #### P OCGLUC #### [facility] [address] [place] [address] José Luis Kisha EGFR-NON AF CUBAN 58 mL/min/1.73m2 Critically low >=60 [facility] Comment on above: Performed By: #### P OCGLUC #### [facility] [address] [address] José Luis Kisha Globulin (S) [Mass/Vol] 3.6 g/dL Normal [facility] Comment on above: Performed By: #### P OCGLUC #### [facility] [address] [place] [address] José Luis Kisha Glucose [Mass/Vol] 152 mg/dL Critically high 74-106 [facility] Comment on above: Performed By: #### P OCGLUC #### [facility] [address] [place] [address] José Luis Kisha Potassium [Moles/Vol] 4.1 mmol/L Normal 3.4-5.0 [facility] Comment on above: Performed By: #### P OCGLUC #### [facility] [address] [address] José Luis Kisha Protein [Mass/Vol] 6.2 g/dL Normal 6.1-8.2 [facility] Comment on above: Performed By: #### P OCGLUC #### [facility] [address] [place] [address] José Luis Kisha Sodium [Moles/Vol] 137 mmol/L Normal 137-145 [facility] Comment on above: Performed By: #### P OCGLUC #### [facility] [address] [place] [address] José Luis Kisha Urea nitrogen [Mass/Vol] 12.0 mg/dL Normal 9.0-20.0 [facility] Comment on above: Performed By: #### P OCGLUC #### [facility] [address] [place] [address] José Luis Kisha Urea nitrogen/Creatinine [Mass ratio] 9.8 mg/mg Normal [facility] Comment on above: Performed By: #### P OCGLUC #### [facility] [address] [place] [address] José Luis Mathuren CBC AUTO DIFFon 06-05-2021 BASO # 0.0 103/ul Normal 0.0-0.1 [facility] Comment on above: Performed By: #### P OCGLUC #### [facility] [address] [place] [address] Dr. Freda Wayne Basophils/100 WBC (Bld) 0.2 % Normal 0.2-2.0 [facility] Comment on above: Performed By: #### P OCGLUC #### [facility] [address] [place] [address] Dr. Freda Wayne EO # 0.0 103/ul Normal 0.0-0.7 [facility] Comment on above: Performed By: #### P OCGLUC #### [facility] [address] [place] [address] Dr. Freda Wayne Eosinophils/100 WBC (Bld) 0.4 % Critically low 0.9-7.0 [facility] Comment on above: Performed By: #### P OCGLUC #### [facility] [address] [place] [address] Dr. Freda Wayne Erythrocyte distribution width (RBC) [Ratio] 15.4 % Critically high 11.0-15.0 [facility] Comment on above: Performed By: #### P OCGLUC #### [facility] [address] [place] [address] Dr. Freda Wayne Hematocrit (Bld) [Volume fraction] 35.5 % Critically low 42.0-54.0 [facility] Comment on above: Performed By: #### P OCGLUC #### [facility] [address] [place] [address] Dr. Freda Wayne Hemoglobin (Bld) [Mass/Vol] 11.5 g/dL Critically low 14.0-18.0 [facility] Comment on above: Performed By: #### P OCGLUC #### [facility] [address] [place] [address] Dr. Freda Wayne IG # 0.04 10e3/ul Critically high 0.00-0.03 [facility] Comment on above: Performed By: #### P OCGLUC #### [facility] [address] [place] [address] Dr. Freda Wayne IG % 0.4 % Normal 0.0-0.5 [facility] Comment on above: Performed By: #### P OCGLUC #### [facility] [address] [place] [address] Dr. Freda Wayne LYMPH # 0.7 103/ul Critically low 1.2-3.8 [facility] Comment on above: Performed By: #### P OCGLUC #### [facility] [address] [place] [address] Dr. Freda Wayne Lymphocytes/100 WBC (Bld) 7.4 % Critically low 20.5-60.0 [facility] Comment on above: Performed By: #### P OCGLUC #### [facility] [address] [place] [address] Dr. Freda Wayne MANUAL DIFF REQ NO Normal [facility] Comment on above: Performed By: #### P OCGLUC #### [facility] [address] [place] [address] Dr. Freda Wayne MCH (RBC) [Entitic mass] 28.8 pg Normal 25.9-34.0 [facility] Comment on above: Performed By: #### P OCGLUC #### [facility] [address] [place] [address] Dr. Freda Wayne MCHC (RBC) [Mass/Vol] 32.4 g/dL Normal 29.9-35.2 [facility] Comment on above: Performed By: #### P OCGLUC #### [facility] [address] [place] [address] Dr. Freda Wayne MCV (RBC) [Entitic vol] 89.0 fL Normal 80.0-94.0 [facility] Comment on above: Performed By: #### P OCGLUC #### [facility] [address] [place] [address] Dr. Freda Wayne MONO # 1.1 103/ul Critically high 0.3-0.8 [facility] Comment on above: Performed By: #### P OCGLUC #### [facility] [address] [place] [address] Dr. Freda Wayne Monocytes/100 WBC (Bld) 10.5 % Normal 1.7-12.0 [facility] Comment on above: Performed By: #### P OCGLUC #### [facility] [address] [place] [address] Dr. Freda Wayne NEUT # 8.2 103/ul Critically high 1.4-6.5 [facility] Comment on above: Performed By: #### P OCGLUC #### [facility] [address] [place] [address] Dr. Freda Wayne Neutrophils/100 WBC (Bld) 81.1 % Critically high 43.0-75.0 [facility] Comment on above: Performed By: #### P OCGLUC #### [facility] [address] [place] [address] Dr. Freda Wayne Platelet mean volume (Bld) [Entitic vol] 10.4 fL Normal 9.5-13.5 [facility] Comment on above: Performed By: #### P OCGLUC #### [facility] [address] [address] [address] Freda Wayne PLT 262 103/ul Normal 150-450 [facility] Comment on above: Performed By: #### P OCGLUC #### [facility] [address] [address] [address] Freda Wayne RBC 3.99 106/ul Critically low 4.70-6.10 [facility] Comment on above: Performed By: #### P OCGLUC #### [facility] [address] [address] [address] Freda Wayne WBC 10.1 103/ul Normal 4.0-11.0 [facility] Comment on above: Performed By: #### P OCGLUC #### [facility] [address] [place] [address] Dr. Freda Wayne POINT OF CARE GLUCOSEon 05-16 Glucose [Mass/Vol] 208 mg/dL Critically high 74-106 [facility] Comment on above: Performed By: #### P OCGLUC #### [facility] [address] [place] [address] Dr. Freda Wayne Glucose [Mass/Vol] 188 mg/dL Critically high 74-106 [facility] Comment on above: Performed By: #### P OCGLUC #### [facility] [address] [address] [address] Freda Wayne Glucose [Mass/Vol] 143 mg/dL Critically high 74-106 [facility] Comment on above: Performed By: #### P OCGLUC #### [facility] [address] [place] [address] José Luis Beard PROF 14(COMP METB)on 021 Albumin [Mass/Vol] 2.8 g/dL Critically low 3.5-5.0 [facility] Comment on above: Performed By: #### P OCGLUC #### [facility] [address] [place] [address] José Luis Kisha Albumin/Globulin [Mass ratio] 0.8 {ratio} Normal [facility] Comment on above: Performed By: #### P OCGLUC #### [facility] [address] [address] José Luis Kisha ALP [Catalytic activity/Vol] 126 U/L Normal 38-126 [facility] Comment on above: Performed By: #### P OCGLUC #### [facility] [address] [address] José Luis Kisha ALT [Catalytic activity/Vol] 109 U/L Critically high 21-72 [facility] Comment on above: Performed By: #### P OCGLUC #### [facility] [address] [place] [address] José Luis Kisha Anion gap [Moles/Vol] 14.4 mmol/L Normal [facility] Comment on above: Performed By: #### P OCGLUC #### [facility] [address] [place] [address] José Luis Kisha AST [Catalytic activity/Vol] 42 U/L Normal 17-59 [facility] Comment on above: Performed By: #### P OCGLUC #### [facility] [address] [place] [address] José Luis Kisha Bilirubin [Mass/Vol] 0.7 mg/dL Normal 0.2-1.3 [facility] Comment on above: Performed By: #### P OCGLUC #### [facility] [address] [place] [address] José Luis Kisha Calcium [Mass/Vol] 8.7 mg/dL Normal 8.4-10.2 [facility] Comment on above: Performed By: #### P OCGLUC #### [facility] [address] [place] [address] José Luis Kisha Chloride [Moles/Vol] 100 mmol/L Normal 98-107 [facility] Comment on above: Performed By: #### P OCGLUC #### [facility] [address] [place] [address] José Luis Kisha CO2 [Moles/Vol] 26.1 mmol/L Normal 22.0-30.0 [facility] Comment on above: Performed By: #### P OCGLUC #### [facility] [address] [address] José Luis Kisha Creatinine [Mass/Vol] 1.23 mg/dL Normal 0.66-1.25 [facility] Comment on above: Performed By: #### P OCGLUC #### [facility] [address] [address] José Luis Kisha EGFR-AF CUBAN >60 Normal >=60 [facility] Comment on above: Performed By: #### P OCGLUC #### [facility] [address] [address] José Luis Kisha EGFR-NON AF CUBAN 58 mL/min/1.73m2 Critically low >=60 [facility] Comment on above: Performed By: #### P OCGLUC #### [facility] [address] [address] José Luis Kisha Globulin (S) [Mass/Vol] 3.5 g/dL Normal [facility] Comment on above: Performed By: #### P OCGLUC #### [facility] [address] [address] José Luis Kisha Glucose [Mass/Vol] 139 mg/dL Critically high 74-106 [facility] Comment on above: Performed By: #### P OCGLUC #### [facility] [address] [address] José Luis Kisha Potassium [Moles/Vol] 3.5 mmol/L Normal 3.4-5.0 [facility] Comment on above: Performed By: #### P OCGLUC #### [facility] [address] [address] José Luis Kisha Protein [Mass/Vol] 6.3 g/dL Normal 6.1-8.2 [facility] Comment on above: Performed By: #### P OCGLUC #### [facility] [address] [address] José Luis Kisha Sodium [Moles/Vol] 137 mmol/L Normal 137-145 [facility] Comment on above: Performed By: #### P OCGLUC #### [facility] [address] [place] [address] José Luis Beard Urea nitrogen [Mass/Vol] 12.0 mg/dL Normal 9.0-20.0 [facility] Comment on above: Performed By: #### P OCGLUC #### [facility] [address] [place] [address] José Luis Beard Urea nitrogen/Creatinine [Mass ratio] 9.8 mg/mg Normal [facility] Comment on above: Performed By: #### P OCGLUC #### [facility] [address] [place] [address] José Luis Beard CBC W MANUAL DIFFon 06-04-20 ATYPICAL LYMPH # Normal [facility] Comment on above: Performed By: #### C BCMAN #### [facility] [address] [place] [address] Dr. Freda Wayne ATYPICAL LYMPH % Normal [facility] Comment on above: Performed By: #### C BCMAN #### [facility] [address] [place] [address] Dr. Freda Wayne BAND # 0.3 103/ul Normal 0.0-0.3 [facility] Comment on above: Performed By: #### C BCMAN #### [facility] [address] [place] [address] Dr. Freda Wayne BAND % 3 % Normal 0-5 [facility] Comment on above: Performed By: #### C BCMAN #### [facility] [address] [place] [address] Dr. Freda Wayne BASOM # 0.00 103/ul Normal 0.00-0.10 [facility] Comment on above: Performed By: #### C BCMAN #### [facility] [address] [place] [address] Dr. Freda Wayne BASOM % 0.0 % Critically low 0.2-2.0 [facility] Comment on above: Performed By: #### C BCMAN #### [facility] [address] [place] [address] Dr. Freda Wayne BLAST # Normal [facility] Comment on above: Performed By: #### C NICOLE #### [facility] [address] [address] [address] Freda Wayne BLAST % Normal [facility] Comment on above: Performed By: #### C NICOLE #### [facility] [address] [place] [address] Dr. Freda Wayne CORRECTED WBC Normal 4.0-11.0 [facility] Comment on above: Performed By: #### C NICOLE #### [facility] [address] [place] [address] Dr. Freda Wayne EOS # 0.00 103/ul Normal 0.00-0.70 [facility] Comment on above: Performed By: #### C NICOLE #### [facility] [address] [place] [address] Dr. Freda Wayne EOS% 0.0 % Critically low 0.9-7.0 [facility] Comment on above: Performed By: #### C NICOLE #### [facility] [address] [place] [address] Dr. Freda Wayne HCT 35.4 % Critically low 42.0-54.0 [facility] Comment on above: Performed By: #### C NICOLE #### [facility] [address] [place] [address] Dr. Freda Wayne HGB 11.3 g/dl Critically low 14.0-18.0 [facility] Comment on above: Performed By: #### C NICOLE #### [facility] [address] [place] [address] Dr. Freda Wayne LYMPHM # 0.65 103/ul Critically low 1.20-3.80 [facility] Comment on above: Performed By: #### C NICOLE #### [facility] [address] [place] [address] Dr. Freda Wayne LYMPHM% 6.0 % Critically low 20.5-60.0 [facility] Comment on above: Performed By: #### C NICOLE #### [facility] [address] [place] [address] Dr. Freda Wayne MCH 28.8 pg Normal 25.9-34.0 [facility] Comment on above: Performed By: #### C NICOLE #### [facility] [address] [place] [address] Dr. Freda Wayne MCHC 31.9 g/dl Normal 29.9-35.2 [facility] Comment on above: Performed By: #### C NICOLE #### [facility] [address] [place] [address] Dr. Freda Wayne MCV 90.3 fL Normal 80.0-94.0 [facility] Comment on above: Performed By: #### C BCJOE #### [facility] [address] [place] [address] Dr. Freda Wayne METAMYELOCYTE # Normal [facility] Comment on above: Performed By: #### C NICOLE #### [facility] [address] [place] [address] Dr. Freda Wayne METAMYELOCYTE % Normal [facility] Comment on above: Performed By: #### C NICOLE #### [facility] [address] [place] [address] Dr. Freda Wayne MONOM# 0.76 103/ul Normal 0.30-0.80 [facility] Comment on above: Performed By: #### C NICOLE #### [facility] [address] [place] [address] Dr. Freda Wayne MONOM% 7.0 % Normal 1.7-12.0 [facility] Comment on above: Performed By: #### C NICOLE #### [facility] [address] [place] [address] Dr. Freda Wayne MPV 10.2 fL Normal 9.5-13.5 [facility] Comment on above: Performed By: #### C BCMAN #### [facility] [address] [place] [address] Dr. Freda Wayne MYELOCYTE # Normal [facility] Comment on above: Performed By: #### C NICOLE #### [facility] [address] [place] [address] Dr. Freda Wayne MYELOCYTE % Normal [facility] Comment on above: Performed By: #### C NICOLE #### [facility] [address] [address] [address] Freda Wayne NRBC Normal [facility] Comment on above: Performed By: #### C NICOLE #### [facility] [address] [address] [address] Freda Wayne PLT 275 103/ul Normal 150-450 [facility] Comment on above: Performed By: #### C NICOLE #### [facility] [address] [address] [address] Freda Wayne RBC 3.92 106/ul Critically low 4.70-6.10 [facility] Comment on above: Performed By: #### C NICOLE #### [facility] [address] [place] [address] Dr. Freda Wayne RDW 15.5 % Critically high 11.0-15.0 [facility] Comment on above: Performed By: #### C NICOLE #### [facility] [address] [place] [address] Dr. Freda Wanye SEG # 9.16 103/ul Critically high 1.40-6.50 [facility] Comment on above: Performed By: #### C NICOLE #### [facility] [address] [place] [address] Dr. Freda Wayne SEG % 84.0 % Critically high 43.0-75.0 [facility] Comment on above: Performed By: #### C NICOLE #### [facility] [address] [place] [address] Dr. Freda Wayne WBC 10.9 103/ul Normal 4.0-11.0 [facility] Comment on above: Performed By: #### C NICOLE #### [facility] [address] [place] [address] Dr. Freda Wayne NM HEPATOBILIARY SCANon -2 [...] by: CINDI RYAN Date: 2021-06-04 00:06 Normal [facility] POINT OF CARE GLUCOSEon 05-16 Glucose [Mass/Vol] 219 mg/dL Critically high 74-106 [facility] Comment on above: Performed By: #### P OCGLUC #### [facility] [address] [place] [address] José Luis Beard Glucose [Mass/Vol] 134 mg/dL Critically high 74-106 [facility] Comment on above: Performed By: #### P OCGLUC #### [facility] [address] [place] [address] Dr. Freda Wayne Glucose [Mass/Vol] 196 mg/dL Critically high 74-106 [facility] Comment on above: Performed By: #### P OCGLUC #### [facility] [address] [place] [address] José Luis Beard PROF 14(COMP METB)on 021 Albumin [Mass/Vol] 2.8 g/dL Critically low 3.5-5.0 [facility] Comment on above: Performed By: #### C MP #### [facility] [address] [place] [address] Dr. Freda Wayne Albumin/Globulin [Mass ratio] 0.8 {ratio} [facility] Comment on above: Performed By: #### C MP #### [facility] [address] [place] [address] Dr. Freda Wayne ALP [Catalytic activity/Vol] 131 U/L Critically high 38-126 [facility] Comment on above: Performed By: #### C MP #### [facility] [address] [place] [address] Dr. Freda Wayne ALT [Catalytic activity/Vol] 153 U/L Critically high 21-72 [facility] Comment on above: Performed By: #### C MP #### [facility] [address] [address] [address] Freda Wayne Anion gap [Moles/Vol] 12.6 mmol/L Normal [facility] Comment on above: Performed By: #### C MP #### [facility] [address] [address] [address] Freda Wayne AST [Catalytic activity/Vol] 79 U/L Critically high 17-59 [facility] Comment on above: Performed By: #### C MP #### [facility] [address] [place] [address] Dr. Freda Wayne Bilirubin [Mass/Vol] 0.7 mg/dL Normal 0.2-1.3 [facility] Comment on above: Performed By: #### C MP #### [facility] [address] [place] [address] Dr. Freda Wayne Calcium [Mass/Vol] 8.6 mg/dL Normal 8.4-10.2 [facility] Comment on above: Performed By: #### C MP #### [facility] [address] [place] [address] Dr. Freda Wayne Chloride [Moles/Vol] 104 mmol/L Normal 98-107 [facility] Comment on above: Performed By: #### C MP #### [facility] [address] [address] [address] Freda Wayne CO2 [Moles/Vol] 25.2 mmol/L Normal 22.0-30.0 [facility] Comment on above: Performed By: #### C MP #### [facility] [address] [place] [address] Dr. Freda Wayne Creatinine [Mass/Vol] 1.30 mg/dL Critically high 0.66-1.25 [facility] Comment on above: Performed By: #### C MP #### [facility] [address] [address] [address] Freda Wayne EGFR-AF CUBAN >60 Normal >=60 [facility] Comment on above: Performed By: #### C MP #### [facility] [address] [address] [address] Freda Wayne EGFR-NON AF CUBAN 54 mL/min/1.73m2 Critically low >=60 [facility] Comment on above: Performed By: #### C MP #### [facility] [address] [address] [address] Freda Wayne Globulin (S) [Mass/Vol] 3.3 g/dL Normal [facility] Comment on above: Performed By: #### C MP #### [facility] [address] [address] [address] Freda Wayne Glucose [Mass/Vol] 141 mg/dL Critically high 74-106 [facility] Comment on above: Performed By: #### C MP #### [facility] [address] [address] [address] Freda Wayne Potassium [Moles/Vol] 3.8 mmol/L Normal 3.4-5.0 [facility] Comment on above: Performed By: #### C MP #### [facility] [address] [address] [address] Freda Wayne Protein [Mass/Vol] 6.1 g/dL Normal 6.1-8.2 [facility] Comment on above: Performed By: #### C MP #### [facility] [address] [address] [address] Freda Wayne Sodium [Moles/Vol] 138 mmol/L Normal 137-145 [facility] Comment on above: Performed By: #### C MP #### [facility] [address] [address] [address] Freda Wayne Urea nitrogen [Mass/Vol] 13.0 mg/dL Normal 9.0-20.0 [facility] Comment on above: Performed By: #### C MP #### [facility] [address] [address] [address] Freda Wayne Urea nitrogen/Creatinine [Mass ratio] 10.0 mg/mg Normal [facility] Comment on above: Performed By: #### C MP #### [facility] [address] [address] [address] Freda Wayne BLOOD CULTURE ID PANELon A. baumannii Not detected [facility] Comment on above: Performed By: #### B TIAGO #### [facility] [address] [place] [address] Dr. Freda Wayne BCID CONTROLS PASSED [facility] Comment on above: Performed By: #### B TIAGO #### [facility] [address] [place] [address] Dr. Freda TATEDBTHD BLOOD CULTURE BOTTLE INFORMATION [facility] Comment on above: Performed By: #### B TIAGO #### [facility] [address] [place] [address] Dr. Freda Wayne BCIDHD1 ANTIMICROBIAL RESIST ANCE GENES [facility] Comment on above: Performed By: #### B TIAGO #### [facility] [address] [place] [address] Dr. Freda Wayne BCIDHD2 SEE BELOW [facility] Comment on above: Result Comment: KPC- carbapenem resistance gene, mecA- methecillin resistance gene, van A/B- vancomycin resistance gene Note: Antimicrobial resitance can occur via multiple mechanisms. A Not Detected result for the [employer] antomicrobial resistance gene assays does not indicate antimicrobial susceptibility. Subculturing is required for specis identificationand susceptibility testing of isolates. Performed By: #### B TIAGO #### [facility] [address] [place] [address] Dr. Freda Wayne BCIDHD3 Positive [facility] Comment on above: Performed By: #### B TIAGO #### [facility] [address] [place] [address] Dr. Freda TATEDHD4 Negative [facility] Comment on above: Performed By: #### B TIAGO #### [facility] [address] [place] [address] Dr. Freda Wayne BCIDHD5 YEAST [facility] Comment on above: Performed By: #### B TIAGO #### [facility] [address] [place] [address] Dr. Freda Wayne BCIDHD6 SEE BELOW Normal [facility] Comment on above: Result Comment: Note : All genus and species BCID [employer] results will be verified post subculturing via Maldi-Tof MS testing methodology. Performed By: #### B TIAGO #### [facility] [address] [place] [address] Dr. Freda Wayne Bottle Set: Set 1 Normal [facility] Comment on above: Performed By: #### B TIAGO #### [facility] [address] [place] [address] Dr. Freda Wayne Bottle: Aerobic Normal [facility] Comment on above: Performed By: #### B TIAGO #### [facility] [address] [place] [address] Dr. Freda Wayne Yarely albicans Not detected Normal [facility] Comment on above: Performed By: #### B TIAGO #### [facility] [address] [place] [address] Dr. Freda Wayne Yarely glabrata Not detected Normal [facility] Comment on above: Performed By: #### B TIAGO #### [facility] [address] [place] [address] Dr. Freda Wayne Yarely Krusei Not detected Normal [facility] Comment on above: Performed By: #### B TIAGO #### [facility] [address] [place] [address] Dr. Freda Wayne Yarely Parapsilosis Not detected Normal [facility] Comment on above: Performed By: #### B TIAGO #### [facility] [address] [place] [address] Dr. Freda Wayne Yarely Tropicalis Not detected Normal [facility] Comment on above: Performed By: #### B TIAGO #### [facility] [address] [place] [address] Dr. Freda Wayne E. Cloacae complex Not detected Normal [facility] Comment on above: Performed By: #### B TIAGO #### [facility] [address] [place] [address] Dr. Freda Wayne Enterobacteriaceae Detected Critically abnormal [facility] Comment on above: Performed By: #### B TIAGO #### [facility] [address] [place] [address] Dr. Freda Wayne Enterococcus Not detected Normal [facility] Comment on above: Performed By: #### B TIAGO #### [facility] [address] [place] [address] Dr. Freda Wayne Escheria coli Not detected Normal [facility] Comment on above: Performed By: #### B TIAGO #### [facility] [address] [place] [address] Dr. Freda Wayne K. oxytoca Not detected Normal [facility] Comment on above: Performed By: #### B TIAGO #### [facility] [address] [place] [address] Dr. Freda Wayne K. pneumoniae Detected Critically abnormal [facility] Comment on above: Performed By: #### B TIAGO #### [facility] [address] [place] [address] Dr. Freda Wayne KPC Resistant Gene Not detected Normal [facility] Comment on above: Performed By: #### B TIAGO #### [facility] [address] [place] [address] Dr. Freda Wayne List. monocytogenes Not detected Normal [facility] Comment on above: Performed By: #### B TIAGO #### [facility] [address] [place] [address] Dr. Freda Wayne mecA Resistant Gene Not Applicable Normal [facility] Comment on above: Performed By: #### B TIAGO #### [facility] [address] [place] [address] Dr. Freda Wayne Proteus Not detected Normal [facility] Comment on above: Performed By: #### B TIAGO #### [facility] [address] [place] [address] Dr. Freda Wayne Pseud. aeruginosa Not detected Normal [facility] Comment on above: Performed By: #### B TIAGO #### [facility] [address] [place] [address] Dr. Freda Wayne Seratia marcescens Not detected Normal [facility] Comment on above: Performed By: #### B TIAGO #### [facility] [address] [place] [address] Dr. Freda Wayne Site: left AC Normal [facility] Comment on above: Performed By: #### B TIAGO #### [facility] [address] [place] [address] Dr. Freda Wayne Staph. aureus Not detected Normal [facility] Comment on above: Performed By: #### B TIAGO #### [facility] [address] [place] [address] Dr. Freda Wayne Staphylococcus Not detected Normal [facility] Comment on above: Performed By: #### B TIAGO #### [facility] [address] [place] [address] Dr. Freda Wayne Strep. agalactiae Not detected Normal [facility] Comment on above: Performed By: #### B TIAGO #### [facility] [address] [place] [address] Dr. Freda Wayne Strep. pneumoniae Not detected Normal [facility] Comment on above: Performed By: #### B TIAGO #### [facility] [address] [place] [address] Dr. Freda Wayne Strep. pyogenes Not detected Normal [facility] Comment on above: Performed By: #### B TIAGO #### [facility] [address] [place] [address] Dr. Frdea Wayne Streptococcus Not detected Normal [facility] Comment on above: Performed By: #### B TIAGO #### [facility] [address] [place] [address] Dr. Freda Wayne Genevieve/B Resist. Gene Not Applicable Normal [facility] Comment on above: Performed By: #### B TIAGO #### [facility] [address] [place] [address] Dr. Freda Wayne CBC W MANUAL DIFFon 06-03-20 21 ATYPICAL LYMPH # Normal [facility] Comment on above: Performed By: #### P OCGLUC #### [facility] [address] [place] [address] José Luis Beard ATYPICAL LYMPH % Normal [facility] Comment on above: Performed By: #### P OCGLUC #### [facility] [address] [place] [address] José Luis Kisha BAND # Normal 0.0-0.3 [facility] Comment on above: Performed By: #### P OCGLUC #### [facility] [address] [place] [address] José Luis Kisha BAND % Normal 0-5 [facility] Comment on above: Performed By: #### P OCGLUC #### [facility] [address] [place] [address] José Luis Kisha BASOM # 0.00 103/ul Normal 0.00-0.10 [facility] Comment on above: Performed By: #### P OCGLUC #### [facility] [address] [place] [address] José Luis Kisha BASOM % 0.0 % Critically low 0.2-2.0 [facility] Comment on above: Performed By: #### P OCGLUC #### [facility] [address] [place] [address] José Luis Kisha BLAST # Normal [facility] Comment on above: Performed By: #### P OCGLUC #### [facility] [address] [place] [address] José Luis Kisha BLAST % Normal [facility] Comment on above: Performed By: #### P OCGLUC #### [facility] [address] [place] [address] José Luis Kisha CORRECTED WBC Normal 4.0-11.0 [facility] Comment on above: Performed By: #### P OCGLUC #### [facility] [address] [place] [address] José Luis Kisha EOS # 0.00 103/ul Normal 0.00-0.70 [facility] Comment on above: Performed By: #### P OCGLUC #### [facility] [address] [place] [address] José Luis Kisha EOS% 0.0 % Critically low 0.9-7.0 [facility] Comment on above: Performed By: #### P OCGLUC #### [facility] [address] [address] José Luis Beard HCT 41.0 % Critically low 42.0-54.0 [facility] Comment on above: Performed By: #### P OCGLUC #### [facility] [address] [place] [address] José Luis Beard HGB 13.0 g/dl Critically low 14.0-18.0 [facility] Comment on above: Performed By: #### P OCGLUC #### [facility] [address] [address] José Luis Beard LYMPHM # 0.18 103/ul Critically low 1.20-3.80 [facility] Comment on above: Performed By: #### P OCGLUC #### [facility] [address] [place] [address] José Luis Beard LYMPHM% 1.0 % Critically low 20.5-60.0 [facility] Comment on above: Performed By: #### P OCGLUC #### [facility] [address] [place] [address] José Luis Beard MCH 28.6 pg Normal 25.9-34.0 [facility] Comment on above: Performed By: #### P OCGLUC #### [facility] [address] [place] [address] José Luis Beard MCHC 31.7 g/dl Normal 29.9-35.2 [facility] Comment on above: Performed By: #### P OCGLUC #### [facility] [address] [place] [address] José Luis Beard MCV 90.1 fL Normal 80.0-94.0 [facility] Comment on above: Performed By: #### P OCGLUC #### [facility] [address] [place] [address] José Luis Mathuren METAMYELOCYTE # Normal [facility] Comment on above: Performed By: #### P OCGLUC #### [facility] [address] [place] [address] José Luis Mathuren METAMYELOCYTE % Normal [facility] Comment on above: Performed By: #### P OCGLUC #### [facility] [address] [address] José Luis Beard MONOM# 0.55 103/ul Normal 0.30-0.80 [facility] Comment on above: Performed By: #### P OCGLUC #### [facility] [address] [place] [address] José Luis Beard MONOM% 3.0 % Normal 1.7-12.0 [facility] Comment on above: Performed By: #### P OCGLUC #### [facility] [address] [place] [address] José Luis Beard MPV 10.1 fL Normal 9.5-13.5 [facility] Comment on above: Performed By: #### P OCGLUC #### [facility] [address] [place] [address] José Luis Beard MYELOCYTE # Normal [facility] Comment on above: Performed By: #### P OCGLUC #### [facility] [address] [place] [address] José Luis Beard MYELOCYTE % Normal [facility] Comment on above: Performed By: #### P OCGLUC #### [facility] [address] [place] [address] José Luis Kisha NRBC Normal [facility] Comment on above: Performed By: #### P OCGLUC #### [facility] [address] [place] [address] José Luis Mathuren PLT 374 103/ul Normal 150-450 [facility] Comment on above: Performed By: #### P OCGLUC #### [facility] [address] [place] [address] José Luis Mathuren RBC 4.55 106/ul Critically low 4.70-6.10 [facility] Comment on above: Performed By: #### P OCGLUC #### [facility] [address] [place] [address] José Luis Beard RDW 15.6 % Critically high 11.0-15.0 [facility] Comment on above: Performed By: #### P OCGLUC #### [facility] [address] [place] [address] José Luis Kisha SEG # 17.57 103/ul Critically high 1.40-6.50 [facility] Comment on above: Performed By: #### P OCGLUC #### [facility] [address] [place], [place] [address] José Luis Beard SEG % 96.0 % Critically high 43.0-75.0 [facility] Comment on above: Performed By: #### P OCGLUC #### [facility] [address] [place], [place] [address] José Luis Beard WBC 18.3 103/ul Critically high 4.0-11.0 [facility] Comment on above: Performed By: #### P OCGLUC #### [facility] [address] [place], [place] [address] ABD/PELV W CONon [...] CINDI SOMMER Date: 2021-06-03 14:15 Normal [facility] CULTURE BLOODon 06-03-2021 Microscopic examination of blood, culture Culture Observations: NO GROWTH AT 5 DAYS. Normal [facility] Comment on above: Performed By: #### B LDCX2 #### [facility] [address], [place] [address] Dr. Freda Wayne [facility]on 05-16 SARS-CoV-2 (COVID-19) RNA SHRUTI+probe Ql (Unsp spec) Not detected Normal NOT DETECTED [facility] Comment on above: Result Comment: When diagnostic testing is negative, the possibility of a false negative should be considered in the context of a patient's recent exposures and the presence of clinical signs and symptoms consistent with SARS-CoV-2. This test is not yet approved or cleared by the [place] Food and Drug Administration (FDA). This test was developed by [employer], [employer], [place]. The performance characteristics of this test were validated by [facility]. The results are not intended to be used as the sole means for clinical diagnosis or patient management decisions. [facility] is authorized under Clinical Laboratory Improvement [...] for this test is supported by the [place] of Health and Human Service's declaration that [...] used). Performed By: #### C BCMAN #### [facility] [address], [place] [address] Dr. Freda Wayne ER URINE PROFILEon Bilirubin Ql (U) Negative Normal NEGATIVE [facility] Comment on above: Performed By: #### P OCGLUC #### [facility] [address] [address] José Luis Kisha Clarity (U) CLEAR Normal CLEAR [facility] Comment on above: Performed By: #### P OCGLUC #### [facility] [address] [address] José Luis Kisha Color (U) YELLOW Normal YELLOW [facility] Comment on above: Performed By: #### P OCGLUC #### [facility] [address] [address] José Luis Kisha ERUAHD A micrscopic examina tion will be performed if indicated. Normal [facility] Comment on above: Performed By: #### P OCGLUC #### [facility] [address] [place] [address] José Luis Kisha Glucose Ql (U) 100 mg/dl Abnormal NEGATIVE [facility] Comment on above: Performed By: #### P OCGLUC #### [facility] [address] [place] [address] José Luis Kisha Hemoglobin Ql (U) Negative Normal NEGATIVE [facility] Comment on above: Performed By: #### P OCGLUC #### [facility] [address] [place] [address] José Luis Kisha Ketones Ql (U) Negative Normal NEGATIVE [facility] Comment on above: Performed By: #### P OCGLUC #### [facility] [address] [place] [address] José Luis Kisha LEUKOCYTES Negative Normal NEGATIVE [facility] Comment on above: Performed By: #### P OCGLUC #### [facility] [address] [place] [address] José Luis Kisha Nitrite Ql (U) Negative Normal NEGATIVE [facility] Comment on above: Performed By: #### P OCGLUC #### [facility] [address] [place] [address] José Luis Kisha pH (U) 6.0 [pH] Normal 5-9 [facility] Comment on above: Performed By: #### P OCGLUC #### [facility] [address] [place], [place] [id number] José Luis Beard Protein (U) [Mass/Vol] 30 mg/dL Abnormal NEGAT CYNTHIA/ TRACE [facility] Comment on above: Performed By: #### P OCGLUC #### [facility] [address] [place] [address] José Luis Beard SPEC GRAVITY 1.020 Normal 1.005-<=1. 025 [facility] Comment on above: Performed By: #### P OCGLUC #### [facility] [address] [place] [address] José Luis Beard UR MICRO IND INDICATED Normal [facility] Comment on above: Performed By: #### P OCGLUC #### [facility] [address] [place] [address] José Luis Beard Urobilinogen Qn (U) 1.0 {Bassem'U}/dL Normal 0.2 - 1. 0 [facility] Comment on above: Performed By: #### P OCGLUC #### [facility] [address] [place] [address] José Luis Beard LACTATE/LACTIC ACIDon 2020 Lactate [Moles/Vol] 2.0 mmol/L Normal 0.7-2.0 [facility] Comment on above: Performed By: #### P OCGLUC #### [facility] [address] [place] [address] Dr. Freda Wayne LIPASEon 06-03-2021 Lipase [Catalytic activity/Vol] 207.0 U/L Normal 23.0-300.0 [facility] Comment on above: Performed By: #### P OCGLUC #### [facility] [address] [place] [address] Dr. Freda Wayne POINT OF CARE GLUCOSEon 05-16 Glucose [Mass/Vol] 107 mg/dL Critically high 74-106 [facility] Comment on above: Performed By: #### P OCGLUC #### [facility] [address] [place] [address] José Luis Beard PROF 14(COMP METB)on Albumin [Mass/Vol] 3.9 g/dL Normal 3.5-5.0 [facility] Comment on above: Performed By: #### P OCGLUC #### [facility] [address] [address] [address] Freda Wayne Albumin/Globulin [Mass ratio] 1.1 {ratio} Normal [facility] Comment on above: Performed By: #### P OCGLUC #### [facility] [address] [address] [address] Freda Wayne ALP [Catalytic activity/Vol] 181 U/L Critically high 38-126 [facility] Comment on above: Performed By: #### P OCGLUC #### [facility] [address] [address] [address] Freda Wayne ALT [Catalytic activity/Vol] 196 U/L Critically high 21-72 [facility] Comment on above: Performed By: #### P OCGLUC #### [facility] [address] [address] [address] Freda Wayne Anion gap [Moles/Vol] 15.4 mmol/L Normal [facility] Comment on above: Performed By: #### P OCGLUC #### [facility] [address] [address] [address] Freda Wayne AST [Catalytic activity/Vol] 217 U/L Critically high 17-59 [facility] Comment on above: Performed By: #### P OCGLUC #### [facility] [address] [address] [address] Freda Wayne Bilirubin [Mass/Vol] 1.1 mg/dL Normal 0.2-1.3 [facility] Comment on above: Performed By: #### P OCGLUC #### [facility] [address] [address] [address] Freda Wayne Calcium [Mass/Vol] 9.7 mg/dL Normal 8.4-10.2 [facility] Comment on above: Performed By: #### P OCGLUC #### [facility] [address] [address] [address] Freda Wayne Chloride [Moles/Vol] 101 mmol/L Normal 98-107 [facility] Comment on above: Performed By: #### P OCGLUC #### [facility] [address] [address] [address] Freda Wayne CO2 [Moles/Vol] 24.4 mmol/L Normal 22.0-30.0 [facility] Comment on above: Performed By: #### P OCGLUC #### [facility] [address] [address] [address] Freda Wayne Creatinine [Mass/Vol] 1.16 mg/dL Normal 0.66-1.25 [facility] Comment on above: Performed By: #### P OCGLUC #### [facility] [address] [address] [address] Freda Wayne EGFR-AF CUBAN >60 Normal >=60 [facility] Comment on above: Performed By: #### P OCGLUC #### [facility] [address] [address] [address] Freda Wayne EGFR-NON AF CUBAN >60 Normal >=60 [facility] Comment on above: Performed By: #### P OCGLUC #### [facility] [address] [address] [address] Freda Wayne Globulin (S) [Mass/Vol] 3.6 g/dL Normal [facility] Comment on above: Performed By: #### P OCGLUC #### [facility] [address] [address] [address] Freda Wayne Glucose [Mass/Vol] 213 mg/dL Critically high 74-106 [facility] Comment on above: Performed By: #### P OCGLUC #### [facility] [address] [address] [address] Freda Wayne Potassium [Moles/Vol] 3.8 mmol/L Normal 3.4-5.0 [facility] Comment on above: Performed By: #### P OCGLUC #### [facility] [address] [address] [address] Freda Wayne Protein [Mass/Vol] 7.5 g/dL Normal 6.1-8.2 [facility] Comment on above: Performed By: #### P OCGLUC #### [facility] [address] [place] [address] Dr. Freda Wayne Sodium [Moles/Vol] 137 mmol/L Normal 137-145 [facility] Comment on above: Performed By: #### P OCGLUC #### [facility] [address] [place] [address] Dr. Freda Wayne Urea nitrogen [Mass/Vol] 16.0 mg/dL Normal 9.0-20.0 [facility] Comment on above: Performed By: #### P OCGLUC #### [facility] [address] [place] [address] Dr. Freda Wayne Urea nitrogen/Creatinine [Mass ratio] 13.8 mg/mg Normal [facility] Comment on above: Performed By: #### P OCGLUC #### [facility] [address] [place] [address] Dr. Freda Wyane PROTIMEon 06-03-2021 INR Coag (PPP) [Relative time] 1.05 {INR} Normal [facility] Comment on above: Performed By: #### P T, PTT #### [facility] [address] [place] [address] Dr. Freda Wayne INR GUIDELINES SEE BELOW Normal [facility] Comment on above: Result Comment: KAYLA RED INR: 2.0 - 3.0 CONDITIONS NOT LISTED BELOW 2.5 - 3.5 FOR PROSTHETIC HEART VALVE REPLACEMENT 2.5 - 3.5 RECURRENT THROMBOSIS Performed By: #### P T, PTT #### [facility] [address] [place] [address] Dr. Freda Wayne PT Coag (PPP) [Time] 11.3 s Normal 9.0-11.6 [facility] Comment on above: Performed By: #### P T, PTT #### [facility] [address] [place] [address] Dr. Freda Wayne PTTon 06-03-2021 aPTT Coag (Bld) [Time] 28.2 s Normal 22.3-36.2 Th [facility] Comment on above: Performed By: #### P T, PTT #### [facility] [address] [place] [address] Dr. Freda Wayne TROPONIN, HIGH SENSITIVITYon 06-03-2021 HSTROP 10.8 pg/mL Normal 4.0-42.2 [facility] Comment on above: Result Comment: CUT- OFF POINTS HAVE BEEN ESTABLISHED BASED ON THE FOURTH UNIVERSAL DEFINITIONS OF MYOCARDIAL INFARCTION. THE UPPER REFERENCE LIMIT (URL) OF TROPONIN, DEFINED THE 99TH PERCENTILE OF cTnI DISTRIBUTION IN A REFERENCE POPULATION, HAS BEEN CONFIRMED THE DECISION THRESHOLD FOR MT DIAGNOSIS. Performed By: #### P OCGLUC #### [facility] [address] [place] [address] Dr. Freda Wayne URINE MICROSCOPIC ONLYon BACTERIA NONE SEEN Normal NONE SEEN [facility] Comment on above: Performed By: #### P OCGLUC #### [facility] [address] [place] [address] José Luis Kisha Bacteria identified Cx Nom (U) NOT INDICATED Normal [facility] Comment on above: Performed By: #### P OCGLUC #### [facility] [address] [place] [address] José Luis Kisha CAST NONE SEEN Normal NONE SEEN [facility] Comment on above: Performed By: #### P OCGLUC #### [facility] [address] [place] [address] José Luis Kisha Crystals LM Nom (Urine sed) NONE SEEN Normal NONE SEEN [facility] Comment on above: Performed By: #### P OCGLUC #### [facility] [address] [place] [address] José Luis Kisha Epithelial cells LM Ql (Urine sed) RARE Normal NONE SEEN /RARE [facility] Comment on above: Performed By: #### P OCGLUC #### [facility] [address] [place] [address] José Luis Kisha MUCOUS TRACE Abnormal NONE SEEN [facility] Comment on above: Performed By: #### P OCGLUC #### [facility] [address] [place] [address] José Luis Kisha RBC 0-2 Normal 0-2 [facility] Comment on above: Performed By: #### P OCGLUC #### [facility] [address], [place] [address] José Luis Beard WBC 0-2 Abnormal NONE SEEN [facility] Comment on above: Performed By: #### P OCGLUC #### [facility] [address], [place] [address] José Luis Beard US SINGLE QUAD RT [...] by: CINDI SOMMER Date: 2021-06-03 09:27 Normal [facility] XR CHEST 1 Von 06-03-2021 XR CHEST [...] by: CINDI SOMMER Date: 2021-06-03 09:56 Normal [facility] Note - Heme Onc Sched nahid 05-22-2021 Clinic Note - Heme Onc Scheduling Retrieve Patient Instructions: Patient Instructions: Patient Instructions: RetrievePatient Instructions COMMUNICATION ORDERS NOTES: Communication Orders NotesPer scheduling note on appointment wifes patient wants apt on 08/26 End of Visit Documentation: Clinic Location/Phone Number: Clinic Location/Phone Number: [address] [address] End Of Visit MU Report Item: Visit Summary given or mailed to patientyes Mailed Appointments Electronic Signatures: Candice Shirley (PT ACCT REP) (Signed 22-May-2021 10:02) Authored: Retrieve Patient Instructions, COMMUNICATION ORDERS NOTES, End of Visit Documentation Last Updated: 22-May-2021 10:02 by Candice Shirley (PT ACCT REP) Normal [facility] Clinic Note - Heme Onc-Follo w Up Visiton 05-20-2021 Clinic Note - Heme Onc-Follow Up Visit Patient Visit Information: Visit Type: Follow Up Visit History of Present Illness: ID Statement: YUSEF CAR is a 71 year old Male Chief Complaint: Duodenal neuroendocrine tumor Interval History: 70 years old gentleman from [place], [place] who has been referred to me from [facility]. The patient complained of acid reflux [...] 6. No (more content not included)... Normal [facility] Clinic Note - Intakeon 05-20 [...] 3 Weights & HeightsDate: Weight/Scale Type:Height: 04-Feb-2021 09:65154 kg / standing btjco134.8 cm 07-Jan-2021 13:07161 kg / standing ucxif771.8 cm 19-Dec-2020 13:18592 kg / standing aqmts129.8 cm SpO2 (%)98 % SpO2 Patient Onroom [...] 20-May-2021 12:55 by Edith Ruvalcaba (SARAH) Normal [facility] - Chemistry and C hemistry - challengeon 05-01-2021 Glucose [Mass/Vol] 132 mg/dL above high threshold 74 - 99 [facility] [place] [facility] [address] DO Work Phone: No Panel Informationon 05-01 [facility] [place] [facility] [address] DO Work Phone: [email or web address]?={[email or web address] [id number]} [facility] [place] [facility] [address] DO Work [...] make patient management decisions.Fact sheet for providers: https://www.fda.gov/media/908220/downloadFact sheet for patients: https://www.fda.gov/media/804296/downloadThis test has received FDA Emergency Use Authorization (EUA) and has been verified by [facility] ([facility]). This test is only authorized for the duration of time that circumstances exist to justify the authorization of the emergency use of in vitro diagnostic tests for the detection of SARS-CoV-2 virus and/or diagnosis of COVID-19 infection under section 564(b)(1) of the Act, 21 U.S.C. 360bbb-3(b)(1), unless the authorization is terminated or revoked sooner. [facility] is certified under CLIA-88 as qualified to perform high complexity testing. Testing is performed in the [facility] laboratories located at [address] [place] [address]. Provider Communicationon Provider Communication Dear Dr. Steele, [...] arise Sincerely, Irwin Cespedes MD, MBS Clinical [facility] Gastroenterology [facility] [address] [place] [address] Patient Care Team Care Team MemberRoleSpecialtyOffice Abdiaziz Cedric HERNANDEZ, Vanessa [facility] Provider[phone] Active Problems Problems BPH with obstruction/lower urinary [...] high threshold 74 - 99 [facility] Work Phone: No Panel Informationon 01-23 [facility] 450 DO Work Phone: [email or web address]?={[email or web address] [id number]} [facility] [place] [facility] [address] DO Work Phone: [facility] [place] [facility] [address] DO Work Phone: Complete Blood Count + Diffe jimbo 01-11-2021 Basophils/100 WBC (Bld) 0.4 % 0.0 - 2.0 U [facility] Work Phone: Erythrocyte distribution width (RBC) [Ratio] 15.6 % above high threshold See Below [facility] Work Phone: Comment on above: Reference Range: 11. 5 - 14.5 Hematocrit (Bld) [Volume fraction] 40.9 % below low threshold See Below [facility] Work Phone: Comment on above: Reference Range: 41. 0 - 52.0 Hemoglobin (Bld) [Mass/Vol] 12.9 g/dL below low threshold See Below [facility] Work Phone: Comment on above: Reference Range: 13. 5 - 17.5 Lymphocytes/100 WBC (Bld) 16.1 % See Below [facility] Work Phone: Comment on above: Reference Range: 13. 0 - 44.0 MCHC (RBC) [Mass/Vol] 31.5 g/dL below low threshold See Below [facility] Work Phone: Comment on above: Reference Range: 32. 0 - 36.0 MCV (RBC) [Entitic vol] 92 fL 80 - 100 U [facility] Work Phone: Monocytes/100 WBC (Bld) 7.4 % 2.0 - 10.0 U [facility] Work Phone: Neutrophils/100 WBC (Bld) 73.8 % See Below [facility] Work Phone: Comment on above: Reference Range: 40. 0 - 80.0 Platelets (Bld) [#/Vol] 360 10*3/uL 150 - 450 [facility] Work Phone: RBC (Bld) [#/Vol] 4.45 {x10E12/L} below low threshold See Below [facility] Work Phone: Comment on above: Reference Range: 4.5 0 - 5.90 WBC (Bld) [#/Vol] 7.7 10*3/uL 4.4 - 11.3 [facility] Work Phone: Complete Blood Count + Differential 0.03 {x10E9/L} See Below [facility] Work Phone: Comment on above: Reference Range: 0.0 0 - 0.10 Complete Blood Count + Differential 0.15 {x10E9/L} See Below [facility] Work Phone: Comment on above: Reference Range: 0.0 0 - 0.40 Complete Blood Count + Differential 0.57 {x10E9/L} See Below [facility] Work Phone: Comment on above: Reference Range: 0.0 5 - 0.80 Complete Blood Count + Differential 1.24 {x10E9/L} See Below [facility] Work Phone: Comment on above: Reference Range: 0.8 0 - 3.00 Complete Blood Count + Differential 5.68 {x10E9/L} above high threshold See Below [facility] Work Phone: Comment on above: Reference Range: 1.6 0 - 5.50 Complete Blood Count + Differential 2.0 % 0.0 - 6.0 [facility] Work Phone: Complete Blood Count + Differential 0.3 % 0.0 - 0.9 [facility] Work Phone: Comment on above: Immature Granulocyte Count (IG) includes promyelocytes, myelocytes and metamyelocytes but does not include bands. Percent differential counts (%) should be interpreted in the context of the absolute cell counts (cells/L). Laboratory - Chemistry and C hemistry - challengeon 01-11-2021 Albumin BCP dye [Mass/Vol] 4.1 g/dL 3.4 - 5.0 [facility] Work Phone: [phone] ALP [Catalytic activity/Vol] 82 U/L 33 - 136 [facility] Work Phone: [phone] ALT With P-5'-P [Catalytic activity/Vol] 12 U/L 10 - 52 [facility] Work Phone: [phone] Comment on above: Patients treated wit h Sulfasalazine may generate falsely decreased results for ALT. Anion gap [Moles/Vol] 12 mmol/L 10 - 20 [facility] Work Phone: [phone] AST With P-5'-P [Catalytic activity/Vol] 12 U/L 9 - 39 [facility] Work Phone: [phone] Bilirubin [Mass/Vol] 0.5 mg/dL 0.0 - 1.2 [facility] Work Phone: [phone] Calcium [Mass/Vol] 9.8 mg/dL 8.6 - 10.3 [facility] Work Phone: [phone] Chloride [Moles/Vol] 103 mmol/L 98 - 107 [facility] Work Phone: [phone] CO2 [Moles/Vol] 30 mmol/L 21 - 32 [facility] Work Phone: [phone] Creatinine [Mass/Vol] 1.20 mg/dL See Below [facility] Work Phone: [phone] Comment on above: Reference Range: 0.5 0 - 1.30 Glucose [Mass/Vol] 147 mg/dL above high threshold 74 - 99 [facility] Work Phone: [phone] Potassium [Moles/Vol] 4.5 mmol/L 3.5 - 5.3 [facility] Work Phone: [phone] Protein [Mass/Vol] 7.0 g/dL 6.4 - 8.2 [facility] Work Phone: [phone] Sodium [Moles/Vol] 140 mmol/L 136 - 145 [facility] Work Phone: [phone] Urea nitrogen [Mass/Vol] 19 mg/dL 6 - 23 [facility] Work Phone: MRI Liver w/wo Contraston MR Liver WO and W contrast IV Normal [facility] Work Phone: No Panel Informationon 01-11 73 {mL/min/1.73m2} >60 [facility] Work Phone: Comment on above: CALCULATIONS OF LACEY MATED GFR ARE PERFORMED USING THE MDRD STUDY EQUATION FOR THE IDMS-TRACEABLE CREATININE METHODS. CLIN CHEM 2007;53:766-72 60 {mL/min/1.73m2} Abnormal >60 [facility] Work Phone: Prostate Specific Antigenon 01-11-2021 Prostate specific Ag [Mass/Vol] 0.29 ng/mL See Below [facility] Work Phone: Comment on above: Reference Range: 0.0 0 - 4.00The FDA requires that the method used for PSA assay be reported to the physician. Values obtained with different assay methods must not be used interchangeably. This test was performed at [facility] using the [employer] PSA method, which is a sandwich immunoassay using chemiluminescence for quantitation. The assay is approvedfor measurement of prostate-specific antigen (PSA) in serum and may be used in conjunction with a digital rectalexamination in men 50 years and older as an aid in detection of prostate cancer. 5-Qaqrm-rjeickkos inhibitors (e.g. Proscar, Finasteride, Avodart, Dutasteride and [...] visit. 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 He underwent EGD on 11/28/2020 at the [facility] in [facility] for a longstanding history of [...] Calcium 10 MG Oral Tablet Results/Data Gastrin, [id number] 08:49AMNon Ambulatory, Provider Ordering Provider: NEFTALI KNOWLES [id number] Test NameResultFlagReference Gastrin, Serum21 pg/mL0-100 Performed By: [employer] [address] [place] [id number] Brim Stiffener: Katharine Vergara MD CT Abdomen and Pelvis with IV [id number] 05:35PMNon Ambulatory, Provider Ordering Provider: NEFTALI KNOWLES [id number] Abdomen and Pelvis with [...] for staging purposes. COMPARISON: None. ACCESSION NUMBER(S): [id number] ORDERING CLINICIAN: NEFTALI KNOWLES TECHNIQUE: CT of [...] is n (more content not included)... 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,N13.8) Orders SocHx: Non-smoker Tobacco Use Screening; Status:Complete; Done: [id number] Perform:Not Applicable;Ordered; For:SocHx: Non-smoker; Ordered By:Neelima Brock; [...] Tablet Vitals Vital Signs Recorded: 08Jan2021 02:15PM Vqcdxcektro42.5 F Heart Rate76 Ydifcuyc578 Zuknsvpta95 Height5 ft 10 in Ojcsqj611 lb BMI Fuzutgmtky03.87 kg/m2 BSA Calculated2.27 Tobacco Useb) No Fall [...] Results/Data CT Abdomen and Pelvis with IV [id number] 05:35PMNon Ambulatory, Provider Ordering Provider: NEFTALI KNOWLES [id number] Abdomen and Pelvis with [...] a) No falls within the last year [facility] Work Phone: Tobacco use status [facility] b) No M [facility] Work Phone: Complete Blood Count + Diffe rentialon 12-26-2020 Hematocrit (Bld) [Volume fraction] Canceled [facility] Work Phone: Hemoglobin (Bld) [Mass/Vol] Canceled [facility] Work Phone: Platelets (Bld) [#/Vol] Canceled M [facility] Work Phone: RBC (Bld) [#/Vol] Canceled -Surg [facility] Work Phone: Complete Blood Count + Differential Canceled [facility] Work Phone: Comment on above: [...] 12-26-2020 Gastrin [Mass/Vol] 21 pg/mL 0-100 [facility] Work Phone: Comment on above: Performed By: MARISSA clarke[address] [id number] Director: Katharine Vergara MD Laboratory - Chemistry and C hemistry - challengeon 12-26-2020 Albumin BCP dye [Mass/Vol] Canceled -[facility] Work Phone: [phone] ALP [Catalytic activity/Vol] Canceled MG-[facility] Work Phone: [phone] ALT With P-5'-P [Catalytic activity/Vol] Canceled -Surg [facility] Work Phone: [phone] Comment on above: Patients treated wit h Sulfasalazine may generate falsely decreased results for ALT. AST With P-5'-P [Catalytic activity/Vol] Canceled MG-Surg [facility] Work Phone: [phone] Bilirubin [Mass/Vol] Canceled MG-S [facility] Work Phone: [phone] Calcium [Mass/Vol] Canceled -[facility] Work Phone: [phone] Chloride [Moles/Vol] Canceled [facility] Work Phone: [phone] CO2 [Moles/Vol] Canceled -[facility] Work Phone: [phone] Creatinine [Mass/Vol] Canceled - [facility] Work Phone: [phone] Glucose [Mass/Vol] Canceled -[facility] Work Phone: [phone] Potassium [Moles/Vol] Canceled [facility]: [phone] Protein [Mass/Vol] Canceled MG-[facility] Work Phone: [phone] Sodium [Moles/Vol] Canceled [facility] Work Phone: [phone] Urea nitrogen [Mass/Vol] Canceled -[facility] Work Phone: [phone] Abdomen and Pelvis with I V Contraston 12-25-2020 CT Abdomen and Pelvis W contrast IV Normal [facility] Work Phone: Complete Blood Count + Alva choi 12-25-2020 Basophils/100 WBC (Bld) 0.2 % 0.0 - 2.0 M [facility] Work Phone: [phone] Erythrocyte distribution width (RBC) [Ratio] 15.7 % above high threshold See Below [facility] Work Phone: [phone] Comment on above: Reference Range: 11. 5 - 14.5 Hematocrit (Bld) [Volume fraction] 40.2 % below low threshold See Below [facility] Work Phone: [phone] Comment on above: Reference Range: 41. 0 - 52.0 Hemoglobin (Bld) [Mass/Vol] 13.0 g/dL below low threshold See Below [facility] Work Phone: [phone] Comment on above: Reference Range: 13. 5 - 17.5 Lymphocytes/100 WBC (Bld) 14.4 % See Below [facility] Work Phone: [phone] Comment on above: Reference Range: 13. 0 - 44.0 MCHC (RBC) [Mass/Vol] 32.3 g/dL See Below [facility] Work Phone: [phone] Comment on above: Reference Range: 32. 0 - 36.0 MCV (RBC) [Entitic vol] 89 fL 80 - 100 M [facility] Work Phone: [phone] Monocytes/100 WBC (Bld) 7.5 % 2.0 - 10.0 M [facility] Work Phone: [phone] Neutrophils/100 WBC (Bld) 76.9 % See Below [facility] Work Phone: [phone] Comment on above: Reference Range: 40. 0 - 80.0 Platelets (Bld) [#/Vol] 401 10*3/uL 150 - 450 [facility] Work Phone: [phone] RBC (Bld) [#/Vol] 4.50 {x10E12/L} See Below [facility] Work Phone: [phone] Comment on above: Reference Range: 4.5 0 - 5.90 WBC (Bld) [#/Vol] 11.4 10*3/uL above high threshold 4.4 - 11.3 [facility] Work Phone: [phone] Complete Blood Count + Differential 0.02 {x10E9/L} See Below [facility] Work Phone: [phone] Comment on above: Reference Range: 0.0 0 - 0.10 Complete Blood Count + Differential 0.08 {x10E9/L} See Below [facility] Work Phone: [phone] Comment on above: Reference Range: 0.0 0 - 0.40 Complete Blood Count + Differential 0.86 {x10E9/L} above high threshold See Below [facility] Work Phone: [phone] Comment on above: Reference Range: 0.0 5 - 0.80 Complete Blood Count + Differential 1.65 {x10E9/L} See Below [facility] Work Phone: [phone] Comment on above: Reference Range: 0.8 0 - 3.00 Complete Blood Count + Differential 8.78 {x10E9/L} above high threshold See Below [facility] Work Phone: [phone] Comment on above: Reference Range: 1.6 0 - 5.50 Complete Blood Count + Differential 0.7 % 0.0 - 6.0 [facility] Work Phone: [phone] Complete Blood Count + Differential 0.3 % 0.0 - 0.9 [facility] Work Phone: [phone] Comment on above: Immature Granulocyte Count (IG) includes promyelocytes, myelocytes and metamyelocytes but does not include bands. Percent differential counts (%) should be interpreted in the context of the absolute cell counts (cells/L). Gastrin, Serumon 12-25-2020 Gastrin [Mass/Vol] Canceled MG-[facility] Work Phone: [phone] Laboratory - Chemistry and C hemistry - challengeon 12-25-2020 Albumin BCP dye [Mass/Vol] 4.3 g/dL 3.4 - 5.0 [facility] Work Phone: [phone] ALP [Catalytic activity/Vol] 88 U/L 33 - 136 -[facility] Work Phone: [phone] ALT With P-5'-P [Catalytic activity/Vol] 11 U/L 10 - 52 [facility] Work Phone: [phone] Comment on above: Patients treated wit h Sulfasalazine may generate falsely decreased results for ALT. Anion gap [Moles/Vol] 15 mmol/L 10 - 20 [facility] Work Phone: [phone] AST With P-5'-P [Catalytic activity/Vol] 12 U/L 9 - 39 MG-Surg [facility] Work Phone: [phone] Bilirubin [Mass/Vol] 0.4 mg/dL 0.0 - 1.2 [facility] Work Phone: [phone] Calcium [Mass/Vol] 9.8 mg/dL 8.6 - 10.3 [facility] Work Phone: [phone] Chloride [Moles/Vol] 104 mmol/L 98 - 107 [facility] Work Phone: [phone] CO2 [Moles/Vol] 23 mmol/L 21 - 32 MG-[facility] Work Phone: [phone] Creatinine [Mass/Vol] 1.15 mg/dL See Below [facility] Work Phone: [phone] Comment on above: Reference Range: 0.5 0 - 1.30 Glucose [Mass/Vol] 101 mg/dL above high threshold 74 - 99 [facility] Work Phone: Potassium [Moles/Vol] 4.3 mmol/L 3.5 - 5.3 [facility] Work Phone: Protein [Mass/Vol] 7.5 g/dL 6.4 - 8.2 [facility] Work Phone: Sodium [Moles/Vol] 138 mmol/L 136 - 145 [facility] Work Phone: Urea nitrogen [Mass/Vol] 30 mg/dL above h igh threshold 6 - 23 [facility] Work Phone: No Panel Informationon 12-25 >60 >60 [facility] Work Phone: Comment on above: CALCULATIONS OF LACEY MATED GFR ARE PERFORMED USING THE MDRD STUDY EQUATION FOR THE IDMS-TRACEABLE CREATININE METHODS. 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 He will be undergoing serum gastrin level testing as well as cross-sectional imaging. I will obtain his EGD report from [facility]. It is currently unclear to me [...] Duodenal well-differentiated neuroendocrine tumor History of Present [id number] man referred to me from Dr. Johansen for duodenal well-differentiated neuroendocrine tumor. He underwent EGD on 11/28/2020 at the [facility] in [facility] for a longstanding history of [...] PYL TISSUE, UREASE Negative Normal NEGATIVE [facility] Comment on above: Performed By: #### P OCGLUC #### [facility] [id number] Freda Wayne POINT OF CARE GLUCOSEon 11-13 Glucose [Mass/Vol] 129 mg/dL Critically high 74-106 [facility] Comment on above: Performed By: #### P OCGLUC #### [facility] [address] [id number] José Luis Beard Covid-19 PCR (CVDTBH)on 11-13 SARS-CoV-2 (COVID-19) RNA SHRUTI+probe Ql (Unsp spec) Not detected Normal NOT DETECTED [facility] Comment on above: Result Comment: This test is not yet approved or cleared by the [place] FDA. When there are no FDA-approved or cleared tests available, and other criteria are met, FDA can make tests available under an emergency access mechanism called an Emergency Use Authorization (EUA). The EUA for this test is supported by the Revenue Investigator of Health and Human Service's (HHS's) declaration [...] consistent with SARS-CoV-2. Performed By: #### C [facility] #### [facility] [address] [place] [address] Dr. Freda Wayne [place] HEPATOBILIARY SCAN W [...] by: MARCELLO LEE Date: 2020-06-18 10:24 Normal [facility] Vital Signs Date Time Vital Sign Value Performing Clinician Padma loja 03-13-2025 09:03-0400 Body height 177.8 cm Tomeka GALLOWAY Work Phone: [facility] 03-13-2025 09:03-0400 Body mass index (BMI) [Ratio] 33.5 kg/m2 Tomeka GALLOWAY Work Phone: [facility] 03-13-2025 09:03-0400 Body temperature 97.5 [degF] Tomeka Leeroyhholz NIGHT FILLER-C Work Phone: [facility] 03-13-2025 09:03-0400 Body weight 105.85 kg Tomeka Aichholz NIGHT FILLER-C Work Phone: [facility] 03-13-2025 09:03-0400 Diastolic blood pressure 72 mm[Hg] Tomeka Aichholz NIGHT FILLER-C Work Phone: [facility] 03-13-2025 09:03-0400 Heart rate 36 /min Tomeka Aichholz NIGHT FILLER-C Work Phone: [facility] 03-13-2025 09:03-0400 Respiratory rate 18 /min Tomeka Aichholz NIGHT FILLER-C Work Phone: [facility] 03-13-2025 09:03-0400 SaO2% (BldA) [Mass fraction] 96 % Tomeka Aichholz NIGHT FILLER-C Work Phone: [facility] 03-13-2025 09:03-0400 Systolic blood pressure 144 mm[Hg] Tomeka Aichholz NIGHT FILLER-C Work Phone: [facility] 01-09-2025 08:33-0400 Body mass index (BMI) [Ratio] 33.2 kg/m2 Tomeka Aichholz NIGHT FILLER Work Phone: [facility] 01-09-2025 08:33-0400 Body temperature 98.49 [degF] Tomeka Aichholz NIGHT FILLER Work Phone: [facility] 01-09-2025 08:33-0400 Body weight 104.96 kg Tomeka Aichholz NIGHT FILLER Work Phone: [facility] 01-09-2025 08:33-0400 Diastolic blood pressure 80 mm[Hg] Tomeka Aichholz NIGHT FILLER Work Phone: [facility] 01-09-2025 08:33-0400 Heart rate 68 /min Tomeka Marvinholz NIGHT FILLER Work Phone: [facility] 01-09-2025 08:33-0400 Respiratory rate 18 /min Tomeka Aichholz NIGHT FILLER Work Phone: [facility] 01-09-2025 08:33-0400 SaO2% (BldA) [Mass fraction] 96 % Tomeka Aichholz NIGHT FILLER Work Phone: [facility] 01-09-2025 08:33-0400 Systolic blood pressure 160 mm[Hg] Tomeka Aichholz NIGHT FILLER Work Phone: [facility] 12-13-2024 14:05-0400 Body mass index (BMI) [Ratio] 32.4 kg/m2 Tomeka Aichholz NIGHT FILLER Work Phone: [facility] 12-13-2024 14:05-0400 Body temperature 98.49 [degF] Tomeka Leeroyhholz NIGHT FILLER Work Phone: [facility] 12-13-2024 14:05-0400 Body weight 102.42 kg Tomeka Aichholz NIGHT FILLER Work Phone: [facility] 12-13-2024 14:05-0400 Diastolic blood pressure 62 mm[Hg] Tomeka Aichholz NIGHT FILLER Work Phone: [facility] 12-13-2024 14:05-0400 Heart rate 24 /min Tomeka Aichholz NIGHT FILLER Work Phone: [facility] 12-13-2024 14:05-0400 Respiratory rate 18 /min Tomeka Aichholz NIGHT FILLER Work Phone: [facility] 12-13-2024 14:05-0400 SaO2% (BldA) [Mass fraction] 95 % Tomeka Aichholz NIGHT FILLER Work Phone: [facility] 12-13-2024 14:05-0400 Systolic blood pressure 100 mm[Hg] Tomeka Aichholz NIGHT FILLER Work Phone: [facility] 11-28-2024 13:58-0400 Body mass index (BMI) [Ratio] 32.46 kg/m2 Tomeka Marvinholz NIGHT FILLER Work Phone: [facility] 11-28-2024 13:58-0400 Body temperature 98.49 [degF] Tomeka Leeroyhholz NIGHT FILLER Work Phone: [facility] 11-28-2024 13:58-0400 Body weight 102.6 kg Tomeka Leeroyhholz NIGHT FILLER Work Phone: [facility] 11-28-2024 13:58-0400 Diastolic blood pressure 74 mm[Hg] Tomeka Aichholz NIGHT FILLER Work Phone: [facility] 11-28-2024 13:58-0400 Heart rate 71 /min Tomeka Leeroykushalholz NIGHT FILLER Work Phone: [facility] 11-28-2024 13:58-0400 Respiratory rate 18 /min Tomeka Marvinholz NIGHT FILLER Work Phone: [facility] 11-28-2024 13:58-0400 SaO2% (BldA) [Mass fraction] 96 % Tomeka Leeroyhholz NIGHT FILLER Work Phone: [facility] 11-28-2024 13:58-0400 Systolic blood pressure 118 mm[Hg] Tomeka Marvinholz NIGHT FILLER Work Phone: [facility] 10-10-2024 08:41-0400 Body mass index (BMI) [Ratio] 33.12 kg/m2 Tomeka Leeroyhholz NIGHT FILLER Work Phone: [facility] 10-10-2024 08:41-0400 Body temperature 97.81 [degF] Tomeka Aichholz NIGHT FILLER Work Phone: [facility] 10-10-2024 08:41-0400 Body weight 104.69 kg Tomeka Leeroyhholz NIGHT FILLER Work Phone: [facility] 10-10-2024 08:41-0400 Diastolic blood pressure 80 mm[Hg] Tomeka Aichholz NIGHT FILLER Work Phone: [facility] 10-10-2024 08:41-0400 Heart rate 56 /min Tomeka Stricklandz NIGHT FILLER Work Phone: [facility] 10-10-2024 08:41-0400 Respiratory rate 18 /min Tomeka Wongholz NIGHT FILLER Work Phone: [facility] 10-10-2024 08:41-0400 SaO2% (BldA) [Mass fraction] 98 % Tomeka Rosado NIGHT FILLER Work Phone: [facility] 10-10-2024 08:41-0400 Systolic blood pressure 110 mm[Hg] Tomeka Wongholz NIGHT FILLER Work Phone: [facility] 07-13-2024 08:29-0500 Body height 177.8 cm Miriam Gatica NIGHT FILLER Work Phone: [facility] 07-13-2024 08:29-0500 Body mass index (BMI) [Ratio] 34.09 kg/m2 Miriam Gatica NIGHT FILLER Work Phone: [facility] 07-13-2024 08:29-0500 Body temperature 98.8 [degF] Miriam Gatica NIGHT FILLER Work Phone: [facility] 07-13-2024 08:29-0500 Body weight 107.78 kg Miriam Gatica NIGHT FILLER Work Phone: [facility] 07-13-2024 08:29-0500 Diastolic blood pressure 88 mm[Hg] Miriam Gatica NIGHT FILLER Work Phone: [facility] 07-13-2024 08:29-0500 Heart rate 74 /min Miriam Gatica NIGHT FILLER Work Phone: [facility] 07-13-2024 08:29-0500 Respiratory rate 22 /min Miriam Gatica NIGHT FILLER Work Phone: [facility] 07-13-2024 08:29-0500 SaO2% (BldA) [Mass fraction] 96 % Miriam Gatica NIGHT FILLER Work Phone: [facility] 07-13-2024 08:29-0500 Systolic blood pressure 140 mm[Hg] Miriam Gatica NIGHT FILLER Work Phone: [facility] 06-30-2024 11:11-0500 Body temperature 97.5 [degF] Jeremiah Magaña MD Work Phone: [facility] 06-30-2024 11:11-0500 Diastolic blood pressure 65 mm[Hg] Jeremiah Magaña MD Work Phone: [facility] 06-30-2024 11:11-0500 Heart rate 79 /min Jeremiah Magaña MD Work Phone: [facility] 06-30-2024 11:11-0500 Respiratory rate 18 /min Jeremiah Magaña MD Work Phone: [facility] 06-30-2024 11:11-0500 SaO2% (BldA) [Mass fraction] 95 % Jeremiah Magaña MD Work Phone: [facility] 06-30-2024 11:11-0500 Systolic blood pressure 121 mm[Hg] Jeremiah Magaña MD Work Phone: [facility] 06-30-2024 09:33-0500 Body height 177.8 cm Jeremiah Magaña MD Work Phone: [facility] 06-30-2024 09:33-0500 Body mass index (BMI) [Ratio] 33 kg/m2 Jeremiah Magaña MD Work Phone: [facility] 06-30-2024 09:33-0500 Body weight 104.33 kg Jeremiah Magaña MD Work Phone: [facility] 06-21-2024 09:29-0500 Body mass index (BMI) [Ratio] 33.96 kg/m2 Neftali Knowles MD Work Phone: [facility] 06-21-2024 09:29-0500 Body temperature 97.5 [degF] Neftali Knowles MD Work Phone: [facility] 06-21-2024 09:29-0500 Body weight 107.37 kg Neftali Knowles MD Work Phone: [facility] 06-21-2024 09:29-0500 Diastolic blood pressure 82 mm[Hg] Neftali Knowles MD Work Phone: [facility] 06-21-2024 09:29-0500 Heart rate 82 /min Neftali Knowles MD Work Phone: [facility] 06-21-2024 09:29-0500 Respiratory rate 18 /min Neftali Knowles MD Work Phone: [facility] 06-21-2024 09:29-0500 SaO2% (BldA) [Mass fraction] 94 % Neftali Knowles MD Work Phone: [facility] 06-21-2024 09:29-0500 Systolic blood pressure 131 mm[Hg] Neftali Knowles MD Work Phone: [facility] 04-13-2024 08:50-0400 Body height 177.8 cm Jenniffer RIBEIRO Work Phone: [facility] 04-13-2024 08:50-0400 Body mass index (BMI) [Ratio] 33.43 kg/m2 Jenniffer Sears PA Work Phone: [facility] 04-13-2024 08:50-0400 Body weight 105.69 kg Jenniffer Sears PA Work Phone: [facility] 04-12-2024 08:29-0400 Body height 177.8 cm Miriam Cardozopatrick NIGHT FILLER Work Phone: [facility] 04-12-2024 08:29-0400 Body mass index (BMI) [Ratio] 33.89 kg/m2 Miriam Gatica NIGHT FILLER Work Phone: [facility] 04-12-2024 08:29-0400 Body temperature 96.3 [degF] Miriam Laurazpatrick NIGHT FILLER Work Phone: [facility] 04-12-2024 08:29-0400 Body weight 107.14 kg Miriam Cardozopatrick NIGHT FILLER Work Phone: [facility] 04-12-2024 08:29-0400 Diastolic blood pressure 78 mm[Hg] Miriam Gatica NIGHT FILLER Work Phone: [facility] 04-12-2024 08:29-0400 Heart rate 53 /min Miriam Gatica NIGHT FILLER Work Phone: [facility] 04-12-2024 08:29-0400 Respiratory rate 16 /min Miriam Gatica NIGHT FILLER Work Phone: [facility] 04-12-2024 08:29-0400 SaO2% (BldA) [Mass fraction] 95 % Miriam Gatica NIGHT FILLER Work Phone: [facility] 04-12-2024 08:29-0400 Systolic blood pressure 130 mm[Hg] Miriam Gatica NIGHT FILLER Work Phone: [facility] 12-29-2023 14:15-0400 Body temperature 96.8 [degF] Jeremiah Magaña MD Work Phone: [facility] 12-29-2023 14:15-0400 Diastolic blood pressure 79 mm[Hg] Jeremiah Magaña MD Work Phone: [facility] 12-29-2023 14:15-0400 Heart rate 64 /min Jeremiah Magaña MD Work Phone: [facility] 12-29-2023 14:15-0400 Respiratory rate 17 /min Jeremiah Magaña MD Work Phone: [facility] 12-29-2023 14:15-0400 SaO2% (BldA) [Mass fraction] 96 % Jeremiah Magaña MD Work Phone: [facility] 12-29-2023 14:15-0400 Systolic blood pressure 171 mm[Hg] Jeremiah Magaña MD Work Phone: [facility] 12-29-2023 13:08-0400 Body height 177.8 cm Jeremiah Magaña MD Work Phone: [facility] 12-29-2023 13:08-0400 Body mass index (BMI) [Ratio] 33 kg/m2 Jeremiah Magaña MD Work Phone: [facility] 12-29-2023 13:08-0400 Body weight 104.33 kg Jeremiah Magaña MD Work Phone: [facility] 10-07-2023 10:30-0400 Diastolic blood pressure 77 mm[Hg] Jeremiah Magaña MD Work Phone: [facility] 10-07-2023 10:30-0400 Heart rate 71 /min Jeremiah Magaña MD Work Phone: [facility] 10-07-2023 10:30-0400 Respiratory rate 16 /min Jeremiah Magaña MD Work Phone: [facility] 10-07-2023 10:30-0400 Systolic blood pressure 130 mm[Hg] Jeremiah Magaña MD Work Phone: [facility] 10-07-2023 09:45-0400 Body temperature 97.2 [degF] Jeremiah Magaña MD Work Phone: [facility] 10-07-2023 09:45-0400 SaO2% (BldA) [Mass fraction] 95 % Jeremiah Magaña MD Work Phone: [facility] 10-07-2023 06:39-0400 Body height 177.8 cm Jeremiah Magaña MD Work Phone: [facility] 10-07-2023 06:39-0400 Body mass index (BMI) [Ratio] 33 kg/m2 Jeremiah Magaña MD Work Phone: [facility] 10-07-2023 06:39-0400 Body weight 104.33 kg Jeremiah Magaña MD Work Phone: [facility] 06-10-2023 09:30-0500 Diastolic blood pressure 63 mm[Hg] Vic Mcrae MD Work Phone: [facility] 06-10-2023 09:30-0500 Heart rate 62 /min Vic Mcrae MD Work Phone: [facility] 06-10-2023 09:30-0500 Respiratory rate 18 /min Vic Mcrae MD Work Phone: [facility] 06-10-2023 09:30-0500 SaO2% (BldA) [Mass fraction] 96 % Vic Mcrae MD Work Phone: [facility] 06-10-2023 09:30-0500 Systolic blood pressure 138 mm[Hg] Vic Mcrae MD Work Phone: [facility] 06-10-2023 09:10-0500 Body temperature 97.9 [degF] Vic Mcrae MD Work Phone: [facility] 06-10-2023 07:28-0500 Body height 177.8 cm Vic Mcrae MD Work Phone: [facility] 06-10-2023 07:28-0500 Body mass index (BMI) [Ratio] 34.29 kg/m2 Vic Mcrae MD Work Phone: [facility] 06-10-2023 07:28-0500 Body weight 108.41 kg Vic Mcrae MD Work Phone: [facility] 01-08-2021 14:15-0400 Body height 177.8 cm Vanessa Steele Work Phone: [facility] Work Phone: 01-08-2021 14:15-0400 Body mass index (BMI) [Ratio] 34.87 kg/m2 Vanessa Steele Work Phone: [facility] Work Phone: 01-08-2021 14:15-0400 Body surface area Derived from formula 2.27 m2 Vanessa Steele Work Phone: [facility] Work Phone: 01-08-2021 14:15-0400 Body temperature 97.5 [degF] Vanessa Steele Work Phone: [facility] Work Phone: 01-08-2021 14:15-0400 Body weight 110.22 kg Vanessa Steele Work Phone: [facility] Work Phone: 01-08-2021 14:15-0400 Diastolic blood pressure 81 mm[Hg] Vanessa Steele Work Phone: [facility] Work Phone: 01-08-2021 14:15-0400 Heart rate 76 /min Vanessa Steele Work Phone: [facility] Work Phone: 01-08-2021 14:15-0400 Systolic blood pressure 134 mm[Hg] Vanessa Steele Work Phone: [facility] Work Phone: Encounters Encounter Date Encounter Type Care Provider Facility Start: 03-13-2025 End: 03-13-2025 ambulatory Tomeka ROSAC Work Phone: [facility] Work Phone: Start: 03-13-2025 End: 03-13-2025 Patient encounter procedure Tomeka Rosado NP-[facility] -[facility] Work Phone: Start: 03-08-2025 Patient encounter procedure Tomeka Rosado NIGHT FILLER-C Work Phone: [facility] Start: 02-14-2025 Non-patient / Non-visit Tomeka dominguez NIGHT FILLER-C -[facility] Work Phone: Start: 01-09-2025 End: 01-09-2025 Bamboo flowsheet Tomeka Rosado NIGHT FILLER Work Phone: [facility] Start: 01-09-2025 End: 01-09-2025 Bamboo flowsheet Tomeka Rosado NIGHT FILLER Work Phone: [facility] Start: 01-09-2025 End: 01-09-2025 Clinisync Result Encounter Tomeka Rosado NP Work Phone: [facility] Unsolicited Start: 01-09-2025 End: 01-09-2025 Patient encounter procedure Tomeka Rosado NIGHT FILLER Work Phone: [facility] Comment on above: Encounter for subseq [...] 12-13-2024 End: 12-13-2024 Bamboo flowsheet Tomeka Rosado NIGHT FILLER Work Phone: [facility] Start: 12-13-2024 End: 12-13-2024 Bamboo flowsheet Tomeka Rosado NIGHT FILLER Work Phone: [facility] Start: 12-13-2024 End: 12-13-2024 Office outpatient visit 25 minutes Tomeka Aichholz NIGHT FILLER Work Phone: [facility] Comment on above: Bradycardia (Primary Dx); [...] by physician Grace Justice PA-C Work Phone: [facility] MRI Comment on above: Bilateral renal cyst s; Adrenal adenoma, left Start: 12-13-2024 ambulatory [facility] Start: 12-08-2024 ambulatory [facility] Start: 12-08-2024 End: 12-08-2024 Subsequent hospital visit by physician Shaikh Jamie HERNANDEZ Work Phone: [facility] Laboratory Comment on above: Bilateral renal cyst s; Adrenal adenoma, left Start: 11-30-2024 End: 11-30-2024 Bamboo flowsheet Jenniffer RIBEIRO Work Phone: [facility] Start: 11-30-2024 End: 11-30-2024 Bamboo flowsheet Jenniffer RIBEIRO Work Phone: [facility] Start: 11-30-2024 End: 11-30-2024 Office outpatient visit 15 minutes Jenniffer RIBEIRO Work Phone: [facility] Comment on above: Acute pain of left s houlder (Primary Dx); Left rotator cuff tear arthropathy; Arthritis of left shoulder Start: 11-30-2024 End: 11-30-2024 ambulatory JENNIFFER SEARS Not Available Start: 11-28-2024 End: 11-28-2024 ambulatory Tomeka Rosado Facility:[facility] Start: 11-28-2024 End: 11-28-2024 Bamboo flowsheet Tomeka Aichholz NIGHT FILLER Work Phone: [facility] Start: 11-28-2024 End: 11-30-2024 Bamboo flowsheet Tomeka Aichholz NIGHT FILLER Work Phone: [facility] Start: 11-28-2024 End: 11-28-2024 Clinisync Result Encounter Tomeka Marvinholz NIGHT FILLER Work Phone: [facility] External Department Unsolicited Start: 11-28-2024 End: 11-30-2024 External Result Encounter Tomeka Marvinholz NIGHT FILLER Work Phone: [facility] External Department Unsolicited Start: 11-28-2024 End: 11-28-2024 Office outpatient visit 25 minutes Tomeka Leeroykushalyaquelinz NIGHT FILLER Work Phone: [facility] Comment on above: LLQ pain (Primary Dx ); Diverticulosis of sigmoid colon; Diverticulitis Start: 11-28-2024 End: 11-28-2024 ambulatory TOMEKA AICHHOLZ Not Available Start: 11-22-2024 End: 11-22-2024 ambulatory [facility] Start: 10-19-2024 End: 10-19-2024 Refill Tomeka Aichholz NIGHT FILLER Work Phone: [facility] Comment on above: Type 2 diabetes nkechi itus without complication, unspecified whether technician terminal and repeater insulin use Start: 10-11-2024 End: 10-11-2024 Refill Gerald Low MD Work Phone: [facility] Comment on above: Type 2 diabetes nkechi itus with stage 3a chronic kidney disease, without long-term current use of insulin (HCC) ([facility]) Start: 10-10-2024 End: 10-10-2024 Bamboo flowsheet Tomeka Aichholz NIGHT FILLER Work Phone: [facility] Start: 10-10-2024 End: 10-10-2024 Bamboo flowsheet Tomeka Aichholz NIGHT FILLER Work Phone: [facility] Start: 10-10-2024 End: 10-10-2024 Office outpatient visit 25 minutes Tomeka Rosado NIGHT FILLER Work Phone: [facility] Comment on above: Type 2 diabetes nkechi itus with stage 3a chronic kidney disease, without long-term current use of insulin (HCC) ([facility]/HCC) (Primary Dx); Gastroesophageal reflux disease without esophagitis; Primary malignant neuroendocrine neoplasm of duodenum ([facility]/HCC); Benign prostatic hyperplasia with lower urinary tract symptoms, symptom details unspecified; Obesity (BMI 30-39.9); Morbid obesity (CMS/HCC); Gout, unspecified cause, unspecified chronicity, unspecified site; Mixed hyperlipidemia ([facility]/HCC); Class 1 obesity due to excess calories with serious comorbidity in adult, unspecified BMI; Screening for prostate cancer; Diabetic polyneuropathy associated with type 2 diabetes mellitus ([facility]/HCC); Primary hypertension ([facility]/HCC) Start: 10-10-2024 End: 10-10-2024 ambulatory TOMEKA ROSADO Not Available Start: 08-12-2024 End: 08-12-2024 Bamboo flowsheet Jenniffer Sears PA Work Phone: [facility] Start: 08-12-2024 End: 08-12-2024 Bamboo flowsheet Jenniffer Sears PA Work Phone: [facility] Start: 08-12-2024 End: 08-12-2024 Office outpatient visit 25 minutes Jenniffer RIBEIRO Work Phone: [facility] Comment on above: Acute pain of left s marilyulder (Primary Dx); Left rotator cuff tear arthropathy Start: 08-12-2024 End: 08-12-2024 ambulatory JENNIFFER SEARS Not Available Start: 07-13-2024 End: 07-13-2024 Bamboo flowsheet Miriam Gatica NIGHT FILLER Work Phone: [facility] Start: 07-13-2024 End: 07-13-2024 Bamboo flowsheet Miriam Gatica NIGHT FILLER Work Phone: [facility] Start: 07-13-2024 End: 07-13-2024 Office outpatient visit 15 minutes Miriam Gatica NIGHT FILLER Work Phone: [facility] Comment on above: Primary hypertension (CMS/HCC) (Primary Dx); Type 2 diabetes mellitus with stage 3a chronic kidney disease, without long-term current use of insulin (HCC) (CMS/HCC); Stage 3a chronic kidney disease (HCC) (CMS/HCC); Mixed hyperlipidemia (CMS/HCC) Start: 07-13-2024 End: 07-13-2024 ambulatory MIRIAM GATICA Not Available Start: 07-08-2024 End: 07-11-2024 Refill Miriam Gatica NIGHT FILLER Work Phone: [facility] Comment on above: Gastroesophageal ref lux disease without esophagitis Start: 06-30-2024 End: 06-30-2024 Clinisync Result Encounter Generic External Data Provider [facility] External Department Unsolicited Start: 06-30-2024 End: 06-30-2024 Clinisync Result Encounter Generic External Data Provider [facility] External Department Unsolicited Start: 06-30-2024 End: 06-30-2024 Subsequent hospital visit by physician Jeremiah Magaña MD Work Phone: [facility] Comment on above: 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) Start: 06-30-2024 End: 06-30-2024 ambulatory JEREMIAH MAGAÑA [facility] Start: 06-21-2024 End: 06-21-2024 Office outpatient visit 40 minutes Neftali Knowles MD Work Phone: [facility] Comment on above: 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) Start: 06-21-2024 End: 06-21-2024 ambulatory NEFTALI KNOWLES [facility] Start: 05-31-2024 End: 05-31-2024 ambulatory [facility] Start: 04-14-2024 End: 04-14-2024 Clinisync Result Encounter Miriam Gatica NIGHT FILLER Work Phone: [facility] External Department Unsolicited Start: 04-14-2024 End: 04-14-2024 Clinisync Result Encounter Miriam Laurazpatrick NIGHT FILLER Work Phone: [facility] External Department Unsolicited Start: 04-13-2024 End: 04-13-2024 Bamboo flowsheet Jenniffer Sears PA Work Phone: [facility] Start: 04-13-2024 End: 04-13-2024 Bamboo flowsheet Jenniffer Sears PA Work Phone: [facility] Start: 04-13-2024 End: 04-13-2024 Office outpatient new 45 minutes Jenniffer Sears PA Work Phone: [facility] Comment on above: Acute pain of left s howard (Primary Dx); Left rotator cuff tear arthropathy Start: 04-13-2024 End: 04-13-2024 ambulatory JENNIFFER SEARS Not Available Start: 04-12-2024 End: 04-12-2024 Bamboo flowsheet Miriam Cardozopatrick NIGHT FILLER Work Phone: [facility] Start: 04-12-2024 End: 04-12-2024 Bamboo flowsheet Miriam Gatica NIGHT FILLER Work Phone: [facility] Start: 04-12-2024 End: 04-12-2024 Office outpatient visit 15 minutes Miiram En NIGHT FILLER Work Phone: [facility] Comment on above: Mixed hyperlipidemia [...] Start: 02-23-2024 End: 02-23-2024 Refill Miriam En NIGHT FILLER Work Phone: [facility] Comment on above: Stage 3a chronic kid spencer disease (HCC) ([facility]/HCC); Type 2 diabetes mellitus with stage 3a chronic kidney disease, without long-term current use of insulin (HCC) ([facility]/HCC) Start: 02-03-2024 End: 02-03-2024 Clinisync Result Encounter Shaikh Jamie HERNANDEZ Work Phone: [facility] External Department Unsolicited Start: 02-03-2024 End: 02-03-2024 Clinisync Result Encounter Shaikh Jamie HERNANDEZ Work Phone: [facility] External Department Unsolicited Start: 01-11-2024 End: 01-11-2024 ambulatory SHAIKH JAMIE Not Available Start: 12-31-2023 End: 12-31-2023 Subsequent hospital visit by physician [address] 2 [facility] Comment on above: Primary malignant ne uroendocrine neoplasm of duodenum (Multi) Start: 12-31-2023 End: 12-31-2023 ambulatory NEFTALI [facility] Start: 12-29-2023 End: 12-29-2023 Subsequent hospital visit by physician Jeremiah Magaña MD Work Phone: [facility] Comment on above: 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) Start: 12-29-2023 End: 12-29-2023 ambulatory JEREMIAH MAGAÑA [facility] Start: 12-28-2023 End: 12-28-2023 ambulatory SHAIKH JAMIE [facility] Start: 12-02-2023 ambulatory Maribeth Tanner Facility:[facility] Start: 12-01-2023 End: 12-03-2023 Subsequent hospital visit by physician [facility] Comment on above: Bilateral renal cyst s; Adrenal adenoma, left Start: 11-30-2023 End: 11-30-2023 Subsequent hospital visit by physician Shaikh Jamie HERNANDEZ Work Phone: [facility] Laboratory Comment on above: Bilateral renal cyst s; Adrenal adenoma, left Start: 10-07-2023 End: 10-07-2023 Subsequent hospital visit by physician Jeremiah Magaña MD Work Phone: [facility] Comment on above: 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) Start: 10-07-2023 End: 10-07-2023 ambulatory [facility] Start: 07-30-2023 Orders Only Shaikh Jamie HERNANDEZ Work Phone: [facility] Comment on above: Stage 3a chronic kid spencer disease (HCC) (CMS/HCC) (Primary Dx); Type 2 diabetes mellitus with stage 3a chronic kidney disease, without long-term current use of insulin (HCC) (CMS/HCC) Start: 07-28-2023 Refill Gerald Hawkins Work Phone: [facility] Comment on above: Primary hypertension (CMS/HCC) (Primary Dx) Start: 07-28-2023 End: 07-30-2023 Patient encounter procedure Grace Justice PA-C Work Phone: [facility] Work Phone: Start: 07-28-2023 End: 07-30-2023 Subsequent hospital visit by physician Grace Justice PA-C Work Phone: [facility] Ultrasound Comment on above: Exam for clinical tr ial Start: 07-02-2023 ambulatory Maribeth Lue Facility:[facility] Start: 06-30-2023 ambulatory Maribeth Lue Facility:[facility] Start: 06-10-2023 End: 06-10-2023 Subsequent hospital visit by physician Vic Mcrae MD Work Phone: [facility] Comment on above: Primary malignant ne uroendocrine neoplasm of duodenum (CMS/HCC) (Primary Dx) Start: 05-26-2023 End: 05-26-2023 Subsequent hospital visit by physician [address]le [facility] 2 [facility] Comment on above: Primary malignant ne uroendocrine neoplasm of duodenum (CMS/HCC) Start: 05-12-[address] Neftali Knowles Facility:[facility] Start: 05-09-2022 Chart Update Vanessa Penny ler Work Phone: [facility] Work Phone: Start: 04-29-2022 End: 04-29-2022 ambulatory Jeremiah Magaña Facility:[id number] Start: 03-01-2022 AUDIT Vanessa Penny ler Work Phone: [facility] Work Phone: Start: 12-05-2021 ambulatory Ms. Lulu Calle Facilit y:[phone] Start: 12-03-2021 AUDIT Vanessa Penny ler Work Phone: [facility] Work Phone: Start: 10-31-2021 ambulatory Ms. Lulu Calle Facilit y:[phone] Start: 08-26-[address] Neftali Knowles Facility:[facility] Start: 06-04-2021 End: 06-06-2021 Evaluation and management of inpatient DR VANESSA STEELE Facility:[facility] Start: 05-20-[address] Neftali Knowles Facility:[facility] Start: 05-16-2021 Result Review Vanessa Penny ler Work Phone: SZ-Usdxvhqndewiinom-L [place] [facility] [address] DO Work Phone: Start: 05-01-2021 Chart Update Vanessa Penny ler Work Phone: TK-Miifwctrvcywoqji-F [place] [facility] 450 DO Work Phone: Start: 04-26-2021 AUDIT Vanessa Penny ler Work Phone: [facility] Work Phone: Start: 02-05-2021 Telephone encounter Vanessa Steele Work Phone: AM-Zegwtnrwecujtlvo-P [place] [facility] 450 DO Work Phone: Start: 01-23-2021 AUDIT Vanessa Penny ler Work Phone: IM-Wrmirsobtgczansb-R [place] [facility] 450 DO Work Phone: Start: 01-18-2021 AUDIT Vanessa Penny ler Work Phone: [facility] Work Phone: Start: 01-10-2021 Office outpatient vi sit 15 minutes Vanessa Steele Work Phone: [facility] Work Phone: Start: 12-19-2020 Office outpatient ne w 60 minutes Vanessa Steele Work Phone: [facility] Work Phone: Start: 11-29-2020 Encounter for preprocedural laboratory examination DR XAVI THOMPSON [facility] Start: 11-28-2020 End: 11-28-2020 ambulatory MIQUEL HAWKINS Facility:[facility] Start: 11-26-2020 End: 11-27-[address] XAVI THOMPSON Facility:[facility] Start: 11-26-2020 End: 11-27-2020 Encounter for preprocedural laboratory examination DR XAVI THOMPSON Facility:[facility] Start: 06-18-2020 End: 06-19-[address] VANESSA STEELE Facility:[facility] Start: 10-08-2018 End: 10-09-2018 Patient encounter procedure DEFAULT PHYSICIAN Facility:[facility] Procedures Date Procedure Procedure Detail Performing Clinician Start: 01-09-2025 XR ANKLE LT MIN 3V Tomeka Rosado NIGHT FILLER Work Phone: Start: 12-08-2024 Assay of urea nitrog en quantitative Grace Justice PA-C Work Phone: Start: 11-30-2024 Arthrocentesis aspir &/inj major jt/bursa w/us Jenniffer RIBEIRO Work Phone: Start: 11-28-2024 XR ABDOMEN 1V Tomeka wilkerson NIGHT FILLER Work Phone: Start: 11-28-2024 Culture bacterial quanttative colony count urine Tomeka Rosado NIGHT FILLER Work Phone: Start: 11-28-2024 URINE CULTURE - [facility] Roxanne Rosado NIGHT FILLER Work Phone: Start: 08-12-2024 Arthrocentesis aspir &/inj major jt/bursa w/us Jenniffer RIBEIRO Work Phone: Start: 07-13-2024 Hemoglobin glycosylated a1c Miriam Gatica NIGHT FILLER Work Phone: Start: 06-30-2024 Egd transoral biopsy single/multiple Jeremiah Magaña MD Work Phone: Start: 06-30-2024 Glucose quantitative blood xcpt reagent strip Jeremiah Magaña MD Work Phone: Start: 06-30-2024 GLUCOSE-POCT Generic External Data Provider Start: 04-14-2024 ALL CBC WITH AUTO DIFF Miriam Gatica NIGHT FILLER Work Phone: Start: 04-13-2024 Arthrocentesis aspir &/inj [...] [facility] Start: 10-07-2023 SURGICAL PATHOLOGY EXAM [facility] Start: 10-07-2023 PLACE IN OUTPATIENT/HOSPITAL AMBULATORY SURGERY [facility] Start: 10-07-2023 Glucose [Mass/volume ] in Serum or Plasma [facility] Start: 10-07-2023 Edg us exam surgical alter stom duodenum/jejunum Vic Mcrae MD Work Phone: Start: 10-07-2023 Glucose quantitative blood xcpt reagent strip Jeremiah Magaña MD Work Phone: Start: 07-28-2023 Unlisted us procedure K jase Justice PA-C Work Phone: Start: 06-10-2023 PULSE OXIMETRY, CONTINUOUS Vic Mcrae MD Work Phone: Start: 06-10-2023 Egd transoral biopsy single/multiple Jazlyn Mcarthur [employer] PROCESSING TECHNICIAN-EMPLOYMENT ATTORNEY Work Phone: Start: 06-10-2023 PULSE OXIMETRY, SPOT Sa shirin Mcrae MD Work Phone: Start: 06-10-2023 Glucose quantitative blood xcpt reagent strip Vic Mcrae MD Work Phone: Start: 05-26-2023 Ct thorax w/contrast material Jazlyn Mcarthur [employer] PROCESSING TECHNICIAN-EMPLOYMENT ATTORNEY Work Phone: Start: 03-06-2023 Lipid 1996 panel - S xiao or Plasma Stj 2 Start: 12-05-2021 Medical genetics cou nseling each 30 minutes Vanessa Steele Work Phone: Start: 10-31-2021 Medical genetics cou nseling each 30 minutes Vanessa Steele Work Phone: Start: 06-04-2021 Resection of Gallbla dder, Percutaneous Endoscopic Approach DR VANESSA STEELE Start: 11-28-2020 Colonoscopy Vic moreno MD Work Phone: Appendectomy Vanessa Buricaga er Work Phone: Excision of bunion Vanessa Steele Work Phone: Repair of shoulder Vanessa tSeele Work Phone: Plan of Treatment Date Care Activity Detail Author Start: 11-28-2030 Screening for malignant neoplasm of colon [facility] Start: 10-27-2028 DTaP/Tdap/Td vaccine (3 - Td or Tdap) DTaP/Tdap/Td vaccine (3 - Td or Tdap) [facility] Start: 10-27-2028 DTaP/Tdap/Td Vaccines (4 - Td or Tdap) DTaP/Tdap/Td Vaccines (4 - Td or Tdap) [facility] Start: 03-06-2028 Lipid panel Lipid Panel [facility] Start: 01-11-2026 End: 01-11-2026 Patient encounter procedure 01/11/2026 10:30 AM EDT Office Visit [facility] [address] [place] [address] Tomeka Rosado NP [address] [place] [address] [facility] Start: 01-09-2026 Medicare Annual Wellness (AWV) Medicare Annual Wellness (AWV) [facility] Start: 11-28-2025 Urine screening for protein Diabetes: Urine Protein Screening [facility] Start: 08-17-2025 Glaucoma screening Diabetes: Retinopathy Screening [facility] Start: 06-30-2025 Diabetes mellitus screening Diabetes Screening [facility] Start: 03-29-2025 End: 03-29-2025 Patient encounter procedure [facility] Start: 03-13-2025 Patient referral [facility] Work Phone: Start: 03-13-2025 End: 03-13-2025 Patient encounter procedure 03/13/2025 9:00 AM EDT Office Visit [facility] [address] [place] [address] Tomeka Rosado NP [address] [place] [phone] [facility] Start: 02-28-2025 Hemoglobin A1c measurement Diabetes: Hemoglobin A1C [facility] Start: 02-13-2025 Influenza vaccination Influenza Vaccine (#1) [facility] Start: 01-31-2025 End: 01-31-2025 Patient encounter procedure 01/31/2025 9:40 AM EDT Office Visit [facility] [address] [place] [address] [place] [address] [place], [place] [phone] [facility] Start: 01-13-[address] [facility] Start: 01-09-2025 End: 01-09-2026 XR Ankle - left 3 Views XR ankle 3+ views left Imaging Routine Left ankle swelling Expected: 01/09/2025, Expires: 01/09/2026 [facility] Work Phone: Comment on above: Expected: 01/09/2025, Expires: Start: 01-09-2025 End: 01-09-2025 Patient encounter procedure [facility] Comment on above: Encounter for subsequent [...] Start: 12-28-2024 Diabetes mellitus screening Diabetes Screening [facility] Start: 12-27-2024 Esophagogastroduodenoscopy EGD [facility] Start: 12-20-2024 End: 12-20-2024 Patient encounter procedure 12/20/2024 10:15 AM EDT Office Visit [facility] [address] [address] Grace Justice PA-C [address] [facility] [address] [place] [address] 1 year f/u with MRI [facility] [address] [place] Comment on above: 1 year f/u with [...] procedure 12/09/2024 9:00 AM EDT Office Visit [facility] [address] [place] [address] Jenniffer Sears PA [address] [facility] [address] [place] [address] [facility] Start: 11-30-2024 End: 11-30-2024 Patient encounter procedure [facility] Comment on above: Acute pain of left shoulder (Primary Dx) ; Left rotator cuff tear arthropathy Start: 11-29-2024 GFR test (Diabetes, CKD 3-4, OR last GFR 15-59) GFR test (Diabetes, CKD 3-4, OR last GFR 15-59) [facility] Start: 11-28-2024 End: 11-28-2025 Bacteria identified in Urine by Culture [facility] Comment on above: Expected: 11/28/2024 (Approximate), Expi res: 11/28/2025 Start: 11-28-2024 End: 11-28-2025 CBC W Auto Differential panel - Blood CBC and differential Lab Routine Diverticulosis of sigmoid colon LLQ pain Expected: 11/28/2024 (Approximate), Expires: 11/28/2025 [facility] Work Phone: Comment on above: Expected: 11/28/2024 (Approximate), Expi res: 11/28/2025 Start: 11-28-2024 End: 11-28-2025 Comprehensive metabolic 2000 panel - Serum or Plasma Comprehensive metabolic panel Lab Routine Diverticulosis of sigmoid colon LLQ pain Expected: 11/28/2024 (Approximate), Expires: 11/28/2025 [facility] Comment on above: Expected: 11/28/2024 (Approximate), Expi res: 11/28/2025 Start: 11-28-2024 End: 11-28-2025 Erythrocyte sedimentation rate Sedimentation rate, automated Lab Routine Diverticulosis of sigmoid colon LLQ pain Expected: 11/28/2024 (Approximate), Expires: 11/28/2025 [facility] Comment on above: Expected: 11/28/2024 (Approximate), Expi res: 11/28/2025 Start: 11-28-2024 End: 11-28-2024 Patient encounter procedure 11/28/2024 2:00 PM EDT Office Visit [facility] [address] [place] [phone] Tomeka Rosado NP [address] [place] [phone] Arrived [facility] Comment on above: Arrived Start: 11-28-2024 End: 11-28-2025 Urinalysis complete panel - Urine Urinalysis with reflex microscopic (clean catch) Lab Routine Diverticulosis of sigmoid colon LLQ pain Expected: 11/28/2024 (Approximate), Expires: 11/28/2025 [facility] Comment on above: Expected: 11/28/2024 (Approximate), Expi res: 11/28/2025 Start: 10-11-2024 Hemoglobin A1c measurement Diabetes: Hemoglobin A1C [facility] Start: 10-10-2024 End: 10-10-2025 Basic metabolic 1998 panel - Serum or Plasma Basic metabolic panel Lab Routine Type 2 diabetes mellitus with stage 3a chronic kidney disease, without long-term current use of insulin (HCC) ([facility]) Expected: 10/10/2024 (Approximate), Expires: 10/10/2025 [facility] Work Phone: Comment on above: Expected: 10/10/2024 (Approximate), Expi res: 10/10/2025 Start: 10-10-2024 End: 10-10-2025 Hemoglobin A1c/Hemoglobin.total in Blood Hemoglobin A1c Lab Routine Screening for prostate cancer Expected: 10/10/2024 (Approximate), Expires: 10/10/2025 [facility] Comment on above: Expected: 10/10/2024 (Approximate), Expi res: 10/10/2025 Start: 10-10-2024 End: 10-10-2025 Microalbumin/Creatinine panel in random Urine Microalbumin / creatinine, urine ratio Lab Routine Type 2 diabetes mellitus with stage 3a chronic kidney disease, without long-term current use of insulin (HCC) ([facility]) Expected: 10/10/2024 (Approximate), Expires: 10/10/2025 [facility] Comment on above: Expected: 10/10/2024 (Approximate), Expi res: 10/10/2025 Start: 10-10-2024 End: 10-10-2025 Urate [Mass/volume] in Serum or Plasma Uric acid Lab Routine Mixed hyperlipidemia ([facility]) Expected: 10/10/2024 (Approximate), Expires: 10/10/2025 [facility] Comment on above: Expected: 10/10/2024 (Approximate), Expi res: 10/10/2025 Start: 10-10-2024 End: 10-10-2025 Urinalysis complete panel - Urine Urinalysis with reflex microscopic (clean catch) Lab Routine Type 2 diabetes mellitus with stage 3a chronic kidney disease, without long-term current use of insulin (HCC) ([facility]) Expected: 10/10/2024 (Approximate), Expires: 10/10/2025 [facility] Comment on above: Expected: 10/10/2024 (Approximate), Expi res: 10/10/2025 Start: 10-10-2024 End: 10-10-2024 Patient encounter procedure [facility] Comment on above: Gastroesophageal reflux [...] Start: 10-06-2024 Diabetes mellitus screening Diabetes Screening [facility] Start: 08-12-2024 End: 08-12-2024 Patient encounter procedure [facility] Comment on above: Acute pain of left shoulder (Primary Dx) Start: 07-13-2024 End: 07-13-[address] [facility] Comment on above: Arrived Start: 06-26-2024 Esophagogastroduodenoscopy EGD [facility] Start: 06-21-2024 End: 06-21-2024 Patient encounter procedure 06/21/2024 9:40 AM EST Office Visit [facility] [address] [place] [address] [place] [address] [place] [address] [facility] Start: 06-10-2024 Diabetes mellitus screening Diabetes Screening [facility] Start: 04-14-2024 Hemoglobin A1c measurement Diabetes: Hemoglobin A1C [facility] Start: 04-13-2024 End: 04-13-2024 Patient encounter procedure 04/13/2024 9:00 AM EDT Office Visit [facility] [address] [place] [address] Jenniffer Sears PA [address] [place] [address] [address] Acute pain of left shoulder (Primary Dx); Left rotator cuff tear arthropathy; Chronic pain of right knee; Arthritis [facility] Comment on above: Acute pain of left shoulder (Primary Dx) ; Left rotator cuff tear arthropathy; Chronic pain of right knee; Arthritis Start: 04-12-2024 End: 04-12-2025 CBC W Auto Differential panel - Blood CBC and differential Lab Routine Primary hypertension ([facility]/HCC) Type 2 diabetes mellitus with stage 3a chronic kidney disease, without long-term current use of insulin (HCC) ([facility]/HCC) Stage 3a chronic kidney disease (HCC) ([facility]/HCC) Expected: 04/12/2024 (Approximate), Expires: 04/12/2025 [facility] Comment on above: Expected: 04/12/2024 (Approximate), Expi res: 04/12/2025 Start: 04-12-2024 End: 04-12-2025 Comprehensive metabolic 2000 panel - Serum or Plasma Comprehensive metabolic panel Lab Routine Primary hypertension ([facility]/HCC) Type 2 diabetes mellitus with stage 3a chronic kidney disease, without long-term current use of insulin (HCC) ([facility]/HCC) Stage 3a chronic kidney disease (HCC) ([facility]/HCC) Expected: 04/12/2024 (Approximate), Expires: 04/12/2025 [facility] Comment on above: Expected: 04/12/2024 (Approximate), Expi res: 04/12/2025 Start: 04-12-2024 End: 04-12-2025 Hemoglobin A1c/Hemoglobin.total in Blood Hemoglobin A1c Lab Routine Type 2 diabetes mellitus with stage 3a chronic kidney disease, without long-term current use of insulin (HCC) ([facility]/HCC) Expected: 04/12/2024 (Approximate), Expires: 04/12/2025 [facility] Comment on above: Expected: 04/12/2024 (Approximate), Expi res: 04/12/2025 Start: 04-12-2024 End: 04-12-2025 Lipid 1996 panel - Serum or Plasma Lipid panel Lab Routine Mixed hyperlipidemia ([facility]/HCC) Expected: 04/12/2024 (Approximate), Expires: 04/12/2025 [facility] Comment on above: Expected: 04/12/2024 (Approximate), Expi res: 04/12/2025 Start: 04-12-2024 End: 04-12-2024 Patient encounter procedure [facility] Comment on above: Arrived Start: 2024 Respiratory Syncytial Virus (RSV) or age 60 yrs+ (1 - 1-dose 75+ series) Respiratory Syncytial Virus (RSV) or age 60 yrs+ (1 - 1-dose 75+ series) [facility] Start: 03-06-2024 Urine screening for protein Diabetes: Urine Protein Screening [facility] Start: 02-25-2024 Medicare Annual Wellness (AWV) Medicare Annual Wellness (AWV) [facility] Start: 02-14-2024 COVID-19 Vaccine ( season) COVID-19 Vaccine () [facility] Start: 02-14-2024 COVID-19 Vaccine () COVID-19 Vaccine () [facility] Start: 02-14-2024 Influenza vaccination Influenza Vaccine (#1) [facility] Start: 12-31-2023 End: 12-31-2023 Patient encounter procedure 12/31/2023 7:30 AM EDT Appointment [facility] [address] [place] [address] [facility] Start: 12-07-2023 End: 12-07-2023 Patient encounter procedure 12/07/2023 10:30 AM EDT Office Visit [facility] on [address] [address] Grace Justice, PACheyenneC [address] [place] [address] [address] 3 month f/u with MRI and PVR [facility] on [facility] Comment on above: 3 month f/u with MRI and PVR Start: 12-01-2023 Subsequent hospital visit by physician 12/01/2023 9:30 AM EDT Hospital Encounter [facility] [address] [place] [id number] [facility] Start: 09-28-2023 Hemoglobin A1c measurement Diabetes: Hemoglobin A1C [facility] Start: 08-27-2023 COVID-19 Vaccine ( season) COVID-19 Vaccine ( season) [facility] Start: 08-11-2023 End: 08-11-2023 Patient encounter procedure 08/11/2023 9:15 AM EST Office Visit [facility] [address] [place] [address] Shaikh yAala MD [address] [place] [address] [facility] Start: 07-31-2023 Annual Wellness Visit (Medicare) Annual Wellness Visit (Medicare) [facility] Start: 07-31-2023 End: 07-31-2023 Patient encounter procedure 07/31/2023 9:30 AM EST Office Visit [facility] on [place] [id number] Grace Justice, PA-C [address] [place] [address] [address] N28.1 - Renal cyst, left [facility] on [facility] Comment on above: N28.1 - Renal cyst, left Start: 06-23-2023 COVID-19 Vaccine (4 - Pfizer series) COVID-19 Vaccine (4 - Pfizer series) [facility] Start: 06-18-2023 End: 06-18-2023 Patient encounter procedure 06/18/2023 12:40 PM EST Office Visit [facility] [address] [place] [address] [place] [address] [place] [address] [facility] Start: 06-10-2023 End: 06-10-2023 Patient encounter procedure 06/10/2023 8:30 AM EST Appointment [facility] [address] [place] [id number] [place] [address] [facility] [place] [address] [facility] Start: 04-29-2023 Diabetes mellitus screening Diabetes Screening [facility] Start: 04-29-2022 EGDANS, Provider: Jeremiah Magaña, Status: Pen, Time: 7:30 AM EGDANS, Provider: Jeremiah Magaña, Status: Pen, Time: 7:30 AM [facility]Ocl[facility]Dig[facility] [address] Work Phone: Start: 11-13-2021 NPV, Provider: Deb Zavala, Status: Pen, Time: 11:20 AM NPV, Provider: Deb Zavala, Status: Pen, Time: 11:20 AM MJ[facility]Twjxgkht-Vaanxs [address] Work Phone: Start: 05-16-2021 Urine screening for protein Diabetes: Urine Protein Screening [facility] Start: 05-01-2021 EGDANS, Provider: Irwin Cespedes, Status: Pen, Time: 8:30 AM EGDANS, Provider: Irwin Cespedes, Status: Pen, Time: 8:30 AM [facility] [facility] [address] DO Work Phone: Start: 01-23-2021 EUSANS, Provider: Irwin Cespedes, Status: Pen, Time: 10:30 AM EUSANS, Provider: Irwin Cespedes, Status: Pen, Time: 10:30 AM [facility] Work Phone: Start: 07-08-2020 Glaucoma screening Diabetes: Retinopathy Screening [facility] Start: 07-19-2016 Shingles vaccine (2 of 3) Shingles vaccine (2 of 3) [facility] Start: 07-19-2016 Zoster Vaccines (2 of 3) Zoster Vaccines (2 of 3) [facility] Start: 2014 Abdominal aortic aneurysm screening Abdominal Aortic Aneurysm (AAA) Screening [facility] Start: 2009 Hepatitis B Vaccines (1 of 3 - Risk 3-dose series) Hepatitis B Vaccines (1 of 3 - Risk 3-dose series) [facility] Start: 2009 Respiratory Syncytial Virus (RSV) or age 60 yrs+ (1 - 1-dose 60+ series) Respiratory Syncytial Virus (RSV) or age 60 yrs+ (1 - 1-dose 60+ series) [facility] Start: 2009 RSV patients and/or patients aged 60+ years (1 - 1-dose 60+ series) RSV patients and/or patients aged 60+ years (1 - 1-dose 60+ series) [facility] Start: 1994 Screening for malignant neoplasm of colon [facility] Start: [address] [facility] Start: 1968 Hepatitis A Vaccines (1 of 2 - Risk 2-dose series) Hepatitis A Vaccines (1 of 2 - Risk 2-dose series) [facility] Start: 1967 Hepatitis C screening [facility] Start: 1961 Depression Screen Depression Screen [facility] Start: [address] [facility] Start: 1949 Medicare Annual Wellness Visit Medicare Annual Wellness Visit (AWV) [facility] Start: 1949 Screening for malignant neoplasm of colon [facility] End: 05-26-2023 CT Chest and Abdomen and Pelvis W contrast IV [facility] Service Area Work Phone: Comment on above: Once for 1 Occurrences starting 05/26/20 23 until 05/26/2023 End: 12-31-2023 CT Chest W contrast IV [facility] Area Work Phone: Comment on above: Once for 1 Occurrences starting 12/31/19 24 until 12/31/2023 Microalbumin/Creatin ine panel in random Urine Microalbumin / creatinine urine ratio Lab Routine Primary hypertension (CMS/HCC) Type 2 diabetes mellitus with stage 3a chronic kidney disease, without long-term current use of insulin (HCC) (CMS/HCC) Stage 3a chronic kidney disease (HCC) (CMS/HCC) Ordered: 04/12/2024 [facility] Work Phone: Comment on above: Ordered: 04/12/2024 End: 10-07-2023 Moderate Sedation Moderate Sedation Procedures Routine Once for 1 Occurrences starting 10/07/2023 until 10/07/2023 [facility] Work Phone: Comment on above: Once for 1 Occurrences starting 10/07/19 until 10/07/2023 End: 12-29-2023 Moderate Sedation Moderate Sedation Procedures Routine Once for 1 Occurrences starting 12/29/2023 until 12/29/2023 [facility] Service Area Work Phone: Comment on above: Once for 1 Occurrences starting 12/29/19 until 12/29/2023 End: 12-01-2023 MR Abdomen WO and W contrast IV [facility] Work Phone: Comment on above: 1 Occurrences starting 12/01/2023 until 12/01/2023 End: 12-13-2024 MR Abdomen WO and W contrast IV [facility] Work Phone: Comment on above: 1 Occurrences starting 12/13/2024 until 12/13/2024 Patient referral [facility] Work Phone: End: 10-07-2023 Pulse oximetry, continuous Pulse oximetry, continuous Respiratory Care Routine Continuous until discontinued starting 10/07/2023 [facility] Work Phone: Comment on above: Continuous until discontinued starting 0 10/07/2023 End: 10-07-2023 Pulse oximetry, spot Pulse oximetry, spot Respiratory Care Routine Once for 1 Occurrences starting 10/07/2023 until 10/07/2023 [facility] Area Work Phone: Comment on above: Once for 1 Occurrences starting 10/07/19 until 10/07/2023 Surgical pathology study [facility] Area Work Phone: Comment on above: Release Upon Ordering for 1 Occurrences starting 06/10/2023 Release Upon Orderin g for 1 Occurrences starting 06/10/2023, 1 completed Surgical pathology study [facility] Work Phone: Comment on above: Release Upon Ordering for 1 Occurrences starting 10/07/2023, 1 completed Surgical pathology study [facility] Work Phone: Comment on above: Release Upon Ordering for 1 Occurrences starting 12/29/2023, 1 completed Surgical pathology study [facility] Service Area Work Phone: Comment on above: Release Upon Ordering for 1 Occurrences starting 06/30/2024, 1 completed URINE CULTURE - [facility] URINE CULTU RE - [facility] Lab Routine 11/28/2024 2:55 PM EDT [facility] Work Phone: Immunizations Immunization Date Immunization Notes Care Provider Jaskaran hastings 05-24-2024 RSV, recombinant, protein subunit RSVpreF, adjuvant reconstitu, 120mcg/0.5mL, PF (Arexvy) Tomeka Rosado NIGHT FILLER Work Phone: [facility] 04-05-2024 Seasonal trivalent influenza vaccine, adjuvanted, preservative free Tomeka Rosado NIGHT FILLER Work Phone: [facility] 04-05-2024 influenza virus vaccine, unspecified formulation Miriam Gatica NIGHT FILLER Work Phone: [facility] 03-20-2023 Influenza, High-dose Seasonal, Quadrivalent, Preservative Free Gerald Low MD Work Phone: [facility] 03-20-2023 influenza virus vaccine, unspecified formulation Jeremiah Magaña MD Work Phone: [facility] Work Phone: 02-24-2023 pneumococcal polysaccharide vaccine, 23 valent Gerald Low MD Work Phone: [facility] 03-27-2022 Influenza, High-dose Seasonal, Quadrivalent, Preservative Free Gerald Low MD Work Phone: [facility] 10-15-2021 Comirnaty 30 MCG/0.3 ML Intramuscular Suspension Vanessa Steele Work Phone: [facility]ne[facility] [address] Work Phone: 03-25-2021 Pfizer-BioNTech COVID-19 Vacc 30 MCG/0.3ML Intramuscular Suspension Vanessa Steele Work Phone: CD-Ofrmxxgz-Uakwvh de [address] Work Phone: 03-01-2021 Fluzone High-Dose Quadrivalent 0.7 ML Intramuscular Suspension Prefilled Syringe Vanessa Dey Cedric Work Phone: [facility] Work Phone: 08-07-2020 Pfizer-BioNTech COVID-19 Vacc 30 MCG/0.3ML Intramuscular Suspension Vanessa Dey Gaylord Work Phone: [facility] Work Phone: 07-17-2020 Pfizer-BioNTech COVID-19 Vacc 30 MCG/0.3ML Intramuscular Suspension Vanessa Dey Cedric Work Phone: [facility] Work Phone: 02-24-2020 Fluzone High-Dose Quadrivalent 0.7 ML Intramuscular Suspension Prefilled Syringe Vanessa F Cedric Work Phone: [facility] Work Phone: 03-09-2019 influenza, high dose seasonal, preservative-free Vanessa F Cedric Work Phone: [facility] Work Phone: 11-22-2018 pneumococcal conjuga te vaccine, 13 valent Vanessa Yissel Cedric Work Phone: [facility] Work Phone: 10-27-2018 tetanus and diphther ia toxoids, adsorbed, preservative free, for adult use (2 Lf of tetanus toxoid and 2 Lf of diphtheria toxoid) Gerald Low MD Work Phone: [facility] 10-27-2018 tetanus toxoid, redu norris diphtheria toxoid, and acellular pertussis vaccine, adsorbed Vanessa Yissel Cedric Work Phone: [facility] Work Phone: 05-21-2018 pneumococcal conjuga te vaccine, 13 valent Vanessatoñito Steele Work Phone: [facility] Work Phone: 04-09-2018 influenza, high dose seasonal, preservative-free Vanessa Steele Work Phone: [facility] Work Phone: 05-18-2017 influenza, high dose seasonal, preservative-free Vanessa Steeel Work Phone: [facility] Work Phone: 05-24-2016 zoster vaccine, live Ponce Steele Work Phone: [facility] Work Phone: 05-15-2016 zoster vaccine, live Ponce Steele Work Phone: [facility] Work Phone: 03-13-2016 influenza, seasonal, injectable, preservative free Vanessa Steele Work Phone: [facility] Work Phone: 03-28-2015 influenza, seasonal, injectable, preservative free Vanessa Steele Work Phone: [facility] Work Phone: 03-14-2011 tetanus toxoid, redu norris diphtheria toxoid, and acellular pertussis vaccine, adsorbed Vanessa Steele Work Phone: [facility] Work Phone: 08-06-2009 novel [id number], preservative-free, injectable Vanessa Steele Work Phone: [facility] Work Phone: 05-12-2006 pneumococcal polysaccharide vaccine, 23 valent Vanessa Steele Work Phone: [facility] Work Phone: Payers Date Payer Category Payer Self-pay 2016 Medicare [id number] 2016 Medicaid [employer] MEDICARE A DVANTAGE [id number] 2016 Medicare (Managed Care) GENERIC MEDICARE ADVANTAGE [id number] 2016 Private Health Insurance [id number] .[id number]. [id number] 2016 Unknown 1959 Medicare [id number] 1949 Unknown [id number] 2.16.840.1.733103.3.579. 2.647 1949 Unknown [id number] 2.16.840.1.676643.3.579. 2.593 1949 Unknown [id number] 2.16.840.1.795440.3.579. 2.593 1949 Unknown [id number] 2.16.840.1.461339.3.579. 2.593 1949 Unknown [id number] 2.16.840.1.086232.3.579. 2.593 1949 Unknown [id number] 2.16.840.1.445992.3.579. 2.356 1949 Unknown [id number] 2.16.840.1.009720.3.579. 2.356 1949 Unknown [id number] 2.16.840.1.505358.3.579. 2.356 1949 Unknown [id number] 2.16.840.1.238637.3.579. 2.356 1949 Unknown [id number] 2.16.840.1.849566.3.579. 2.356 1949 Unknown [id number] 2.16.840.1.117031.3.579. 2.1069 1949 Unknown [id number] 2.16.840.1.287923.3.579. 2.1069 1949 Unknown [id number] 2.16.840.1.690860.3.579. 2.1245 1949 Unknown [id number] 2.16.840.1.374897.3.579. 2.1245 1949 Unknown [id number] 2.16.840.1.624180.3.579. 2.1243 1949 Unknown [id number] 2.16.840.1.949064.3.579. 2.1243 1949 Unknown [id number] 2.16.840.1.411987.3.579. 2.1243 1949 Unknown [id number] 2.16.840.1.685696.3.579. 2.1243 1949 Unknown [id number] 2.16.840.1.192323.3.579. 2.754 1949 Unknown [id number] 2.16.840.1.134979.3.579. 2.754 1949 Unknown [id number] 2.16.840.1.081509.3.579. 2.1259 1949 Unknown [id number] 2.16.840.1.416946.3.579. 2.1259 1949 Unknown [id number] 2.16.840.1.283217.3.579. 2.1259 1949 Unknown [id number] 2.16.840.1.353827.3.579. 2.1259 1949 Unknown [id number] 2.16.840.1.417916.3.579. 2.1259 1949 Unknown [id number] 2.16.840.1.245707.3.579. 2.1259 1949 Unknown [id number] 2.16.840.1.993103.3.579. 2.1259 1949 Unknown [id number] 2.16.840.1.345973.3.579. 2.1259 1949 Unknown [id number] 2.16.840.1.010998.3.579. 2.1259 1949 Unknown [id number] 2.16.840.1.447382.3.579. 2.1259 1949 Unknown [id number] 2.16.840.1.760982.3.579. 2.1259 Private Health Insurance [id number] Unknown [id number] 2.16.840.1.155491.3.579. 2.531 Social History Date Type Detail Facility Start: 06-10-2023 End: 07-06-2024 Non-smoker Non-smoker [facility] Tobacco smoking status NCIS Tobacco smoking consumption unknown [facility] Work Phone: Start: 1950 [facility] At [facility]: Start: 06-10-2023 End: 07-06-2024 Gender identity Not on file [facility] Start: 05-12-2023 End: 06-30-2024 Exposure to SARS-CoV-2 (event) Not sure [facility] Start: 06-10-2023 End: 01-11-2024 Tobacco smoking status NHIS Ex-smoker [facility] Work Phone: Start: 06-15-1968 End: 06-15-1983 History of tobacco use Current smoker [facility] Work Phone: Start: 06-15-1968 End: 06-15-1983 History of tobacco use Cigarette Smoker [facility] Work Phone: Start: 06-10-2023 End: 01-11-2024 Tobacco use and exposure Smokeless tobacco non-user [facility] Work Phone: Start: 06-10-2023 End: 01-09-2025 Alcohol intake Current drinker of alcohol (finding) [facility] Work Phone: Start: 06-10-2023 Alcohol Comment Social [facility] Work Phone: Within the last year , have you been afraid of your partner or ex-partner? No [facility] How often do you attend congregational or restorationist services? Patient refused [facility] Are you [...] Start: 10-07-2023 Sexual orientation Heterosexual (sancho skyla) [facility] Start: 07-31-2023 Tobacco smoking status NHIS Never smoked tobacco [facility] [employer] Phone: Start: 09-07-2023 End: 12-01-2023 Alcohol intake [facility]finding[facility] Start: 10-12-2023 Alcohol Comment OCCASSIONA; [facility] Start: 04-13-2024 Alcohol Comment OCCASSIONAL [facility] Start: 1950 Sex assigned at Male [facility] Work Phone: How often do you hav e 6 or more drinks on 1 occasion? Never [facility] How often do you nee d to have someone help you when you read instructions, pamphlets, or other written material from your doctor or pharmacy [SILS] Rarely [facility] Start: 07-25-2012 Sex Male (finding) [facility] NEGATED: Highlighted rowStart: AUBRIE History of tobacco use Passive smoker [facility] Medical Equipment Procedure Code Equipment Code Equipment Origin al Text Equipment Identifier Dates Generic Supply 0 8 Case [id number] Start: 01-23-2021 Comment on above: Description: Convert ed from [facility]. Please see archived information for full log information. USE DIRECTED ONCE TEST [id number] Start: 06-22-2023 End: 10-19-2024 USE DIRECTED ONCE TEST [id number] Start: 06-22-2023 1 each by Other route Daily dailyUse as instructed [id number] Start: 10-19-2024 End: 01-27-2025 Functional Status Date Assessment Result Facility 01-09-2025 Patient Health Quest ionnaire 2 item (PHQ-2) [Reported[facility] 11-28-2020 to [...] no, recent ER visit Specialist: eye doctor, solar sales advisor, urology, GI, oncololgy HCPOA/Living Will: POA Concerns: [...] the past Stage 3a chronic kidney disease ([facility]-HCC) Noted on prior labs Control blood pressure [...] at last office visit, was sent to [facility] ER via squad Bisoprolol dose was [...] Associated Problem(s): Stage 3a chronic kidney disease ([facility]CC) Noted on prior labs Control blood pressure as well as diabetes Avoid nephrotoxic drugs if possible Associated Problem(s): Bradycardia Noted at last office visit, was sent to [facility] ER via squad Bisoprolol dose was lowered from 10mg daily to 5mg daily Associated Problem(s): NSVT (nonsustained ventricular tachycardia) ([facility]) Noted from cardiology notes in the past Associated Problem(s): LLQ pain Checked labs and xray at last appt Treated for suspected diverticulitis, sxs resolved documented in this encounter [facility] 01-09-2025 Instructions Tomeka Rosado NP - 01/09/2025 8:40 AM EDT Follow up in office for 2 weeks Get xray documented in this encounter [facility] 12-13-2024 History of Present illness Narrative Associated Problem(s): Bradycardia No current sxs , at HR that he has, we discussed that despite asymptomatic we will send to hospital 911 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 . ( Codes 44230) Procedure, treatment alternatives, risks and benefits explained, [...] requiring urgent evaluation. Visit was preformed using [employer]-missile control pilot speech recognition. documented in this encounter [facility] 11-28-2024 History of Present illness Narrative Associated [...] 875-125 MG tablet documented in this encounter [facility] 11-28-2024 Instructions Tomeka Rosado NP - 11/28/2024 2:00 PM EDT Get labs completed and xray Also if pain worsens go to ER documented in this encounter [facility] 11-22-2024 Note [facility]rophys[facility] Consult Note Reason [...] kidney disease) stage 3, GFR 30-59 ml/min ([facility]) Diabetes 1.5, managed as t (more content not included)... [facility] 10-10-2024 History of Present illness Narrative Associated Problem(s): Diabetic polyneuropathy associated with type 2 diabetes mellitus ([facility]) Freq foot checks proper fitting shoes, socks [...] a heart monitor done in June Sees solar sales advisor ferdinand ogden in [place] Images from the original note were not [...] being taken. He does not see a tile conduit layer.Eye exam is current. Hypertension This is a [...] checks proper fitting shoes, socks Primary hypertension ([facility]) Please check blood pressure daily and record DASH diet Limit caffeine Take medication as directed Contact office if chest pain, pressure, dizziness, shortness of breath, swelling legs Recommend slow position changes Current meds: bisoprolol, amlodipine prn Mixed hyperlipidemia ([facility]) On statin therapy Check labs yearly and prn dose changes Relevant Orders Uric acid RESOLVED: Morbid obesity ([facility]) Benign prostatic hyperplasia with lower urinary tract symptoms Currently taking tamsulosin Type 2 diabetes mellitus with kidney complication, without long-term current use of insulin ([facility]) - Primary Check blood sugars daily, notify [...] 30-39.9) 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 Associated Problem(s): Mixed hyperlipidemia ([facility]/HCC) On statin therapy Check labs yearly and prn dose changes Associated Problem(s): Gout Current meds: allopurinol Check labs yearly and prn dose changes or changes in sxs Associated Problem(s): Type 2 diabetes mellitus with kidney complication, without long-term current use of insulin ([facility]) Check blood sugars daily, notify if <70 [...] bisoprolol, amlodipine prn documented in this encounter [facility] 10-10-2024 Instructions Tomeka Rosado NP - 10/10/2024 8:40 AM EDT Labs: fasting documented in this encounter [facility] 08-12-2024 History of Present illness Narrative Associated [...] neurovascular intact s/p injection. . ( Codes 71462-QC) Procedure, treatment alternatives, risks and benefits explained, [...] requiring urgent evaluation. documented in this encounter [facility] 07-13-2024 History of Present illness Narrative Associated [...] complication, without long-term current use of insulin ([facility]/HCC) Currently taking glimeperide 4mg Jardiance 25mg Most [...] who presents for Diabetes. HPI Specialists: Cardiologuy- [facility] GI- Dr. Magaña Urology- Dr. Justice HTN: [...] R ALBUMIN GLOBULIN RATIO 0.9 Resulting Agency [facility] CKDIII: Stable. Most recent Creatinine 1.22,/ eGFR [...] with them to next visit. Mixed hyperlipidemia ([facility]) Currently taking Rosuvastatin 20mg Cardiology Manages Denies any myalgias. Most recent Lipid Panel done 03/2024- WNL. Continue current regimen. Type 2 diabetes mellitus with kidney complication, without long-term current use of insulin ([facility]) Currently taking glimeperide 4mg Jardiance 25mg Most [...] Agents. Monitor closely. documented in this encounter [facility] 07-13-2024 Instructions Miriam Gatica NP - 07/13/2024 [...] and simple sugars. documented in this encounter [facility] 06-30-2024 Attending History and physical note H&P [...] Interval History: 73 years old gentleman from [place], [place] who has been referred to me from [facility]. The patient complained of acid reflux [...] 0841 No results found for: TSH , [id number] , K7XDLRG , THYROIDPAB Radiology Result: I have reviewed [...] Juanjose Walters 05/27/2023 11:47 AM Dictation workstation: [id number] === 01/11/21 === - Impression - 1. [...] Juanjose Walters 05/27/2023 11:47 AM Dictation workstation: [id number] Pathology Results: I have reviewed the full pathology report recorded in the EMR. The pertinent portions indicating diagnosis are listed here in the note. for details please refer to the full report recorded in the EMR. Assessment and Plan: Localized duodenal neuroendocrine tumor (G1) 73 years old gentleman from [place], [place] who has been referred to me from [facility]. The patient complained of acid reflux [...] patient has been recommended to go to [facility] for surgical consultation. I discussed with the [...] number listed below. Thank you for choosing [facility]. We appreciate your visit. Neftali Knowles M.D. Border Guard and Director of the Neuroendocrine Tumor Program Gastrointestinal Medical Oncology Department of Hematology and Oncology [facility], [place] [address] Phone (Office): [phone] Email: [email or web address] Learn more about [facility] Comprehensive Neuroendocrine Tumor Program: Click Here Learn more about [place] [employer]: [email or web address] [facility] Work Phone: 06-30-2024 History and physical [...] Interval History: 73 years old gentleman from [place], [place] who has been referred to me from [facility]. The patient complained of acid reflux [...] 0841 No results found for: TSH , Z2HPBPR , R8NTKZH , THYROIDPAB Radiology Result: I have reviewed [...] Juanjose Walters 05/27/2023 11:47 AM Dictation workstation: [id number] === 01/11/21 === - Impression - 1. [...] Juanjose Walters 05/27/2023 11:47 AM Dictation workstation: [id number] Pathology Results: I have reviewed the full pathology report recorded in the EMR. The pertinent portions indicating diagnosis are listed here in the note. for details please refer to the full report recorded in the EMR. Assessment and Plan: Localized duodenal neuroendocrine tumor (G1) 73 years old gentleman from [place], [place] who has been referred to me from [facility]. The patient complained of acid reflux [...] patient has been recommended to go to [facility] for surgical consultation. I discussed with the [...] number listed below. Thank you for choosing [facility]. We appreciate your visit. Neftali Knowles M.D. Border Guard and Director of the Neuroendocrine Tumor Program Gastrointestinal Medical Oncology Department of Hematology and Oncology [facility], [place] [address] Phone (Office): [phone] Email: [email or web address] Learn more about [facility] Comprehensive Neuroendocrine Tumor Program: Click Here Learn more about [place] [employer]: [email or web address] documented in this encounter [facility] Work Phone: 06-30-2024 Hospital Discharge instructions [...] having your procedure, call the [facility] to be advised whether a visit to [...] or looks infected. documented in this encounter [facility] Work Phone: 05-31-2024 Note [facility] Electrophysiology [...] kidney disease) stage 3, GFR 30-59 ml/min ([facility]) Diabetes 1.5, managed as type 2 ([facility]/HCC) HTN (hypertension) Hyperlipidemia NSVT (nonsustained ventricular tachycardia) ([facility]/HCC) Primary malignant neoplasm of duodenum (CMS/HCC) PSH: Past Surgical History: Procedure Laterality Date CARDIAC CATHETERIZATION 07/27/2023 SH: Social Determinants of Health Tobacco Use: Medium Risk (04/13/2024) Received from [facility] Patient History Smoking Tobacco Use: Former Smokeless Tobacco Use: Never Passive Exposure: Never Alcohol Use: Not At Risk (06/28/2023) Received from [facility] AUDIT-C Frequency of Alcohol Consumption: Monthly or less Average Number of Drinks: 1 or 2 Frequency of Binge Drinking: Monthly [employer] (more content not included)... [facility] 04-13-2024 History of Present illness Narrative [...] injection Left Shoulder SA space ( code 26224 LT) Procedure, treatment alternatives, risks and benefits [...] requiring urgent evaluation. documented in this encounter [facility] 04-12-2024 History of Present illness Narrative Associated Problem(s): Type 2 diabetes mellitus with kidney complication, without long-term current use of insulin ([facility]) Currently taking glimeperide 4mg Jardiance 25mg Most [...] Associated Problem(s): Left rotator cuff tear arthropathy [facility] ortho told him he needed revision. Declined. [...] Diabetes and Hypertension. HPI Specialists: Cardiologuy- [facility] GI- Dr. Magaña Urology- Dr. Justice HTN: [...] panel Diabetes mellitus type 2 in obese ([facility]) Type 2 diabetes mellitus with kidney complication, without long-term current use of insulin ([facility]) Currently taking glimeperide 4mg Jardiance 25mg Most [...] Surgery Stage 3a chronic kidney disease (HCC) ([facility]) Stable. Most recent Creatinine 1.18,/ eGFR 65. Avoid Nephrotoxic Agents. Monitor closely. Relevant Orders Microalbumin / creatinine urine ratio Comprehensive metabolic panel CBC and differential Arthritis Relevant Orders Ambulatory referral to Orthopaedic Surgery documented in this encounter [facility] 04-12-2024 Instructions Miriam Gatica NP - 04/12/2024 [...] and simple sugars. documented in this encounter [facility] 12-29-2023 Hospital Discharge instructions Jeremiah Magaña MD [...] having your procedure, call the [facility] to be advised whether a visit to [...] or looks infected. documented in this encounter [facility] Work Phone: 12-29-2023 Attending History and [...] and follows closely with hematology oncology at [facility]. Patient has had imaging of his [...] 1 year with MRI abdomen and PVR [facility] Work Phone: 12-29-2023 History and physical [...] and follows closely with hematology oncology at [facility]. Patient has had imaging of his [...] abdomen and PVR documented in this encounter [facility] Work Phone: 10-07-2023 Hospital Discharge instructions [...] having your procedure, call the [facility] to be advised whether a visit to [...] or looks infected. documented in this encounter [facility] Work Phone: 10-07-2023 Attending History and [...] from the original note were not included. ID Electrophysiology Consult Note Reason for visit: PAC/PVC [...] Value Ventricular Rate 62 Atrial Rate 62 PA Interval 204 QRS DURATION 108 QT Interval 440 QTC CALCULATION(BAZETT) 446 P [place] 26 R-[place] -24 T Wave [place] 28 Impression Normal sinus rhythm Moderate voltage [...] Follow-up with our cardiology office in the [facility] in the next 2 to 4 [...] been negative. Noe Knight MD Cardiac Electrophysiology [facility] Work Phone: 10-07-2023 History and physical note H&P reviewed. The patient was examined and there are no changes to the H&P. Hx of duodenal bulb NET. Recent duodenal polyp, biopsy came back negative for NET. Here for EUS and EMR of duodenal polyp. Source Note - Noe Knight MD - 09/15/2023 3:00 PM EDT Images from the original note were not included. ID Electrophysiology Consult Note Reason for visit: PAC/PVC [...] kidney disease) stage 3, GFR 30-59 ml/min ([facility]) Diabetes 1.5, managed as type 2 ([facility]) HTN (hypertension) Hyperlipidemia NSVT (nonsustained ventricular tachycardia) ([facility]) Primary malignant neoplasm of duodenum ([facility]) PSH: Past Surgical History: Procedure Laterality [...] on file Intimate Partner Violence: Unknown (08/06/2023) ID Safety & Environment Fear of Current or [...] Value Ventricular Rate 62 Atrial Rate 62 PA Interval 204 QRS DURATION 108 QT Interval 440 QTC CALCULATION(BAZETT) 446 P [place] 26 R-[place] -24 T Wave [place] 28 Impression Normal sinus rhythm Moderate voltage criteria for LVH, may be normal variant ( R in aVL , [place] product ) Borderline ECG No previous ECGs [...] Follow-up with our cardiology office in the [facility] in the next 2 to 4 [...] LVH, may be normal variant (R in aVL,[facility] product) Borderline ECG No previous ECGs available [...] been negative. Noe Knight MD Cardiac Electrophysiology [facility] documented in this encounter [facility] Work Phone: 06-10-2023 Hospital Discharge instructions [...] having your procedure, call the [facility] to be advised whether a visit to [...] or looks infected. 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: (Not in a hospital admission) Current [...] (This is my H and P ) [facility] Work Phone: 06-10-2023 Note Formatting of [...] Other TIA Erythromycin GI bleeding Lisinopril 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: (Not in a hospital admission) Current [...] (This is my H and P ) [facility] Work Phone: 01-10-2021 Chief complaint Narrative - Reported An interactive audio and video telecommunication system which permits real time communications between the patient (at the originating site) and provider (at the distant site) was utilized to provide this telehealth service.Verbal consent was requested and obtained from YUSEF CAR on this date, 01/10/2021 09:30 AM , for a telehealth visit.Duodenal neuroendocrine tumor [facility] Phone: 11-28-2020 History of Present illness Narrative 70-year-old man referred to me from Dr. Johansen for duodenal well-differentiated neuroendocrine tumor. He underwent EGD on 11/28/2020 at the [facility] in [facility] for a longstanding history of [...] drug useHe is retired [facility] Work Phone: 11-28-2020 History of Present illness Narrative 70-year-old man with duodenal well-differentiated neuroendocrine tumor. He underwent EGD on 11/28/2020 at the [facility] in [facility] for a longstanding history of [...] patient and his . [facility] Work Phone: Evaluation note Diagnosis Primary malignant neuroendocrine neoplasm of duodenum (CMS/HCC) documented in this encounter [facility] Work Phone: Evaluation note* Diagnosis Primary malignant neuroendocrine neoplasm of duodenum (CMS/HCC) documented in this encounter [facility] Work Phone: Evaluation note* Diagnosis Primary malignant neuroendocrine neoplasm of duodenum (CMS/HCC)- Primary documented in this encounter [facility] Work Phone: Evaluation note* Diagnosis Primary hypertension (CMS/HCC)- Primary Unspecified essential hypertension documented in this encounter [facility] HealthcareEvaluation note* Diagnosis Exam for clinical trial Examination of participant in clinical trial documented in this encounter [facility] Phone: evaluation note* Diagnosis Stage 3a chronic kidney disease (HCC) (CMS/HCC)- Primary Type 2 diabetes mellitus with stage 3a chronic kidney disease, without long-term current use of insulin (HCC) (CMS/HCC) documented in this encounter [facility] [place]* Diagnosis Primary malignant neuroendocrine neoplasm of duodenum (Multi)- Primary documented in this encounter [facility] Work Phone: Evaluation note* Diagnosis 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 Adrenal adenoma, left documented in this encounter [facility] Phone: evalvflocx note* Diagnosis 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 Adrenal adenoma, left documented in this encounter [facility] Phone: evalpiavae note* Diagnosis Primary hypertension (CMS/HCC)- Primary Unspecified [...] arthropathy, site unspecified documented in this encounter [facility] HealthcareEvaluation note* Diagnosis Primary hypertension (CMS/HCC)- Primary [...] reflux Stage 3a chronic kidney disease (HCC) ([facility]/HCC) Obesity (BMI 30-39.9) Diabetes mellitus type 2 in obese ([facility]/HCC) Left rotator cuff tear arthropathy Chronic pain of right knee Arthritis Unspecified arthropathy, site unspecified Acute pain of left shoulder- Primary Left rotator cuff tear arthropathy documented in this encounter [facility] HealthcareEvaluation note* Diagnosis Primary malignant neuroendocrine neoplasm of duodenum (Multi)- Primary documented in this encounter [facility] Work Phone: Evaluation note* Diagnosis Primary malignant neuroendocrine neoplasm of duodenum (Multi) documented in this encounter [facility] Work Phone: Evaluation note* Diagnosis Stage 3a chronic kidney disease (HCC) ([facility]/HCC) Type 2 diabetes mellitus with stage 3a chronic kidney disease, without long-term current use of insulin (HCC) ([facility]) documented in this encounter [facility] HealthcareEvaluation note* Diagnosis Primary malignant neuroendocrine neoplasm of duodenum (Multi)- Primary documented in this encounter [facility] Work Phone: Evaluation note* Diagnosis Primary malignant neuroendocrine neoplasm of duodenum (Multi)- Primary documented in this encounter [facility] Work Phone: Evaluation note* Diagnosis Primary hypertension ([facility]/HCC)- Primary Unspecified essential hypertension Primary malignant neuroendocrine neoplasm of duodenum (CMS/HCC) Gastroesophageal reflux disease without esophagitis Esophageal reflux Abnormal nuclear stress test Stage 3a chronic kidney disease (HCC) ([facility]/HCC) Nodule of lower lobe of left lung Type 2 diabetes mellitus with stage 3a chronic kidney disease, without long-term current use of insulin (HCC) ([facility]/HCC) Renal cyst, left Unspecified congenital cystic kidney disease NSVT (nonsustained ventricular tachycardia) ([facility]) Encounter to establish care with new doctor Left adrenal mass ([facility]/HCC)- Primary Unspecified disorder of adrenal glands Type 2 diabetes mellitus with stage 3a chronic kidney disease, without long-term current use of insulin (HCC) (CMS/HCC) Primary hypertension ([facility]/HCC) Unspecified essential hypertension Pneumonia of left lower lobe due to infectious organism- Primary Primary hypertension ([facility]/HCC) Unspecified essential hypertension Gout, unspecified cause, unspecified [...] esophagitis Esophageal reflux documented in this encounter [facility] HealthcareEvaluation note* Diagnosis Primary hypertension (CMS/HCC)- Primary [...] (CMS/HCC) Mixed hyperlipidemia documented in this encounter [facility] HealthcareEvaluation note* Diagnosis Primary hypertension (CMS/HCC)- Primary [...] cuff tear arthropathy documented in this encounter [facility] HealthcareEvaluation note* Diagnosis Primary hypertension (CMS/HCC)- Primary [...] essential hypertension documented in this encounter [facility] HealthcareEvaluation note* Diagnosis Primary hypertension (CMS/HCC)- Primary [...] insulin (HCC) (CMS/HCC) documented in this encounter [facility] HealthcareEvaluation note* Diagnosis Primary hypertension (CMS/HCC)- Primary [...] details unspecified Obesity (BMI 30-39.9) Morbid obesity ([facility]/HCC) Morbid obesity Gout, unspecified cause, unspecified chronicity, unspecified site Mixed hyperlipidemia ([facility]/HCC) Mixed hyperlipidemia Class 1 obesity due to excess calories with serious comorbidity in adult, unspecified BMI Screening for prostate cancer Special screening for malignant neoplasm of prostate Diabetic polyneuropathy associated with type 2 diabetes mellitus ([facility]/HCC) Primary hypertension ([facility]) Unspecified essential hypertension Type 2 diabetes mellitus without complication, unspecified whether skilled nursing insulin use documented in this encounter [facility] HealthcareEvaluation note* Diagnosis Primary hypertension- Primary Unspecified essential hypertension Primary malignant neuroendocrine neoplasm of duodenum (HCC) Gastroesophageal reflux disease without esophagitis Esophageal reflux Abnormal nuclear stress test Stage 3a chronic kidney disease ([facility]-HCC) Nodule of lower lobe of left lung Type 2 diabetes mellitus with stage 3a chronic kidney disease, without long-term current use of insulin (HCC) Renal cyst, left Unspecified congenital cystic kidney disease NSVT (nonsustained ventricular tachycardia) ([facility]) Encounter to establish care with new doctor [...] Esophageal reflux Stage 3a chronic kidney disease ([facility]-HCC) Obesity (BMI 30-39.9) Diabetes mellitus type 2 in obese ([facility]/HCC) Left rotator cuff tear arthropathy Chronic pain [...] details unspecified Obesity (BMI 30-39.9) Morbid obesity ([facility]-HCC) Morbid obesity Gout, unspecified cause, unspecified chronicity, [...] mention of hemorrhage) documented in this encounter [facility] HealthcareEvaluation note* Diagnosis Primary hypertension- Primary Unspecified essential hypertension Primary malignant neuroendocrine neoplasm of duodenum (HCC) Gastroesophageal reflux disease without esophagitis Esophageal reflux Abnormal nuclear stress test Stage 3a chronic kidney disease ([facility]-HCC) Nodule of lower lobe of left lung Type 2 diabetes mellitus with stage 3a chronic kidney disease, without long-term current use of insulin (HCC) Renal cyst, left Unspecified congenital cystic kidney disease NSVT (nonsustained ventricular tachycardia) ([facility]) Encounter to establish care with new doctor [...] Esophageal reflux Stage 3a chronic kidney disease ([facility]) Obesity (BMI 30-39.9) Diabetes mellitus type 2 [...] of left shoulder documented in this encounter [facility] HealthcareEvaluation note* Diagnosis 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 Adrenal adenoma, left documented in this encounter [facility] Work Phone: evaluation note* Diagnosis Primary hypertension- [...] cystic kidney disease NSVT (nonsustained ventricular tachycardia) ([facility]) Encounter to establish care with new doctor [...] essential hypertension documented in this encounter [facility] HealthcareEvaluation note* Diagnosis 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 Adrenal adenoma, left documented in this encounter [facility] Work Phone: evaluation note* Diagnosis Primary hypertension- Primary Unspecified essential hypertension Primary malignant neuroendocrine neoplasm of duodenum (HCC) Gastroesophageal reflux disease without esophagitis Esophageal reflux Abnormal nuclear stress test Stage 3a chronic kidney disease ([facility]-HCC) Nodule of lower lobe of left lung Type 2 diabetes mellitus with stage 3a chronic kidney disease, without long-term current use of insulin (HCC) Renal cyst, left Unspecified congenital cystic kidney disease NSVT (nonsustained ventricular tachycardia) ([facility]) Encounter to establish care with new doctor [...] Esophageal reflux Stage 3a chronic kidney disease ([facility]-HCC) Obesity (BMI 30-39.9) Diabetes mellitus type 2 in obese ([facility]) Left rotator cuff tear arthropathy Chronic pain [...] details unspecified Obesity (BMI 30-39.9) Morbid obesity ([facility]-HCC) Morbid obesity Gout, unspecified cause, unspecified chronicity, [...] and foot joint documented in this encounter [facility] HealthcareEvaluation note* Diagnosis Onset Date Resolution Status [...] of insulin acute March 13, 2025 8:52am [facility] Work Phone: History of Present illness Narrative* HISTORY OF PRESENT ILLNESS: * Mr. CAR is a 71 year old male with a personal history of duodenal neuroendocrine cancer. [facility] by his provider, Ania Foster CNP. Mr. 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 CAR is of [place]ese and [place] descent. There is no known Ashkenazi Anglican ancestry. Consanguinity was denied. No genetic testing has been done in the family before. [facility] Work Phone: History of Present illness NarrativePlease see previous genetics note.[facility] Work Phone: History of Present illness Narrative* Neftali Knowles MD - 06/21/2024 9:40 AM EST Images from the original note were not included. Patient ID: Yusef Car is a 74 y.o. male. Referring Physician: No referring provider defined for this encounter. Primary Care Provider: Shaikh Jamie MD Chief Complaint: Duodenal neuroendocrine tumor Interval History: 73 years old gentleman from [place], [place] who has been referred to me from [facility]. Thepatient complained of acid reflux for [...] 0841 No results found for: TSH , [id number] , N3UCADI , THYROIDPAB Radiology Result: I have reviewed [...] Juanjose Walters 05/27/2023 11:47 AM Dictation workstation: [id number] === 01/11/21 === - Impression - 1. [...] Juanjose Walters 05/27/2023 11:47 AM Dictation workstation: [id number] Pathology Results: I have reviewed the full pathology report recorded in the EMR. The pertinent portions indicating diagnosis are listed here in the note. for details please refer to the full report recorded in the EMR. Assessment and Plan: Localized duodenal neuroendocrine tumor (G1) 73 years old gentleman from [place], [place] who has been referred to me from [facility]. Thepatient complained of acid reflux for [...] patient has been recommended to go to [facility] for surgical consultation. I discussed with the [...] number listed below. Thank you for choosing [facility]. We appreciate your visit. Neftali Knowles M.D. Border Guard and Director of the Neuroendocrine Tumor Program Gastrointestinal Medical Oncology Department of Hematology and Oncology [facility], [place] [address] Phone (Office): [phone] Email: [email or web address] Learn more about [facility] Comprehensive Neuroendocrine Tumor Program: Click Here Learn more about [place] [employer]: [email or web address] [facility] Work Phone: Hospital Discharge instructionsAmbulatory Orders* Referral to Podiatry Time Frame: 03/13/25, Location: None [facility] Work Phone: reason for visit Narrative* Endoscopy (Routine) - Authorized Specialty Diagnoses / Procedures Referred By Contact Referred To Contact Gastroenterology Diagnoses Primary malignant neuroendocrine neoplasm of duodenum (Multi) Procedures Esophagogastroduodenoscopy (EGD) PA ESOPHAGOGASTRODUODENOSCOPY TRANSORAL DIAGNOSTIC PA EGD TRANSORAL BIOPSY SINGLE/MULTIPLE Jeremiah Magaña MD [address] [facility] [address] [place] [address] Phone: tel:[phone] fax:[phone] Referral ID Status Reason Start Date Expiration Date V isits Requested Visits Authorized [id number] Authorized 06/22/2024 06/22/2025 1 1 [facility] Work Phone: reason for visit Narrative* Imaging (Routine) - Closed Specialty Diagnoses / Procedures Referred By Contac t Referred To Contact Radiology Diagnoses Bilateral renal cysts Adrenal adenoma, left Procedures MRI ABDOMEN W WO CONTRAST Grace Justice, SHERMAN [address] [facility] [address] [place] [address] Phone: tel: fax: Referral ID Status Reason Start Date Expiration Date Visits Re quested Visits Authorized [id number] Closed 12/13/2024 12/13/[address] [facility] Work Phone: Summary Purpose Family History Unknown [...] Spouse Health Care Agent [phone] (Mobile) [email or web address] Agents on File Name Relationship Healthcare Agent Relationshi p Communication Zoe Josep Spouse Health Care Agent [phone] (Mobile) [email or web address] Agents on File Name Relationship Healthcare Agent Relationshi p Communication Zoe Josep Spouse Health Care Agent [phone] (Mobile) [email or web address] Agents on File Name Relationship Healthcare Agent Relationshi p Communication Zoe Josep Spouse Health Care Agent [phone] (Mobile) [email or web address] Agents on File Name Relationship Healthcare Agent Relationshi p Communication Zoe Josep Spouse Health Care Agent [phone] (Mobile) [email or web address] Agents on File Name Relationship Healthcare Agent Relationshi p Communication Zoe Josep Spouse Health Care Agent [phone] (Mobile) [email or web address] Agents on File Name Relationship Healthcare Agent Relationshi p Communication Zoe Josep Spouse Health Care Agent [phone] (Mobile) [email or web address] Agents on File Name Relationship Healthcare Agent Relationshi p Communication Zoe Josep Spouse Health Care Agent [phone] (Mobile) [email or web address] Agents on File Name Relationship Healthcare Agent Relationshi p Communication Zoe Josep Spouse Health Care Agent [phone] (Mobile) [email or web address] Agents on File Name Relationship Healthcare Agent Relationshi p Communication Zoe Josep Spouse Health Care Agent [phone] (Mobile) [email or web address] Agents on File Name Relationship Healthcare Agent Relationshi p Communication Zoe Josep Spouse Health Care Agent [phone] (Mobile) [email or web address] Agents on File Name Relationship Healthcare Agent Relationshi p Communication Zoe Josep Spouse Health Care Agent [phone] (Mobile) [email or web address] Agents on File Name Relationship Healthcare Agent Relationshi p Communication Zoe Josep Spouse Health Care Agent [phone] (Mobile) [email or web address] Agents on File Name Relationship Healthcare Agent Relationshi p Communication Zoe Josep Spouse Health Care Agent [phone] (Mobile) [email or web address] Agents on File Name Relationship Healthcare Agent Relationshi p Communication Zoe Josep Spouse Health Care Agent [phone] (Mobile) [email or web address] Agents on File Name Relationship Healthcare Agent Relationshi p Communication Zoe Josep Spouse Health Care Agent [phone] (Mobile) [email or web address] Agents on File Name Relationship Healthcare Agent Relationshi p Communication Zoe Josep Spouse Health Care Agent [phone] (Mobile) [email or web address] Agents on File Name Relationship Healthcare Agent Relationshi p Communication Zoe Josep Spouse Health Care Agent [phone] (Mobile) [email or web address] Agents on File Name Relationship Healthcare Agent Relationshi p Communication Zoe Car Spouse Health Care Agent [phone] (Mobile) [email or web address] Agents on File Name Relationship Healthcare Agent Relationshi p Communication Zoe Josep Spouse Health Care Agent [phone] (Mobile) [email or web address] Agents on File Name Relationship Healthcare Agent Relationshi p Communication Zoe Josep Spouse Health Care Agent [phone] (Mobile) [email or web address] Agents on File Name Relationship Healthcare Agent Relationshi p Communication Zoe Car Spouse Health Care Agent [phone] (Mobile) [email or web address] Agents on File Name Relationship Healthcare Agent Relationshi p Communication Zoe Josep Spouse Health Care Agent [phone] (Mobile) [email or web address] Agents on File Name Relationship Healthcare Agent Relationshi p Communication Zoe Josep Spouse Health Care Agent [phone] (Mobile) [email or web address] Agents on File Name Relationship Healthcare Agent Relationshi p Communication Zoe Car Spouse Health Care Agent [phone] (Mobile) [email or web address] Directive Response Recorded Date/ Time Advance [...] abdomen pelvis w IV contrast Jazlyn Mcarthur, B[employer] PROCESSING TECHNICIAN-EMPLOYMENT ATTORNEY [address] [address] [facility]ology [facility] Oncology [place] [id number] Referral ID Status Reason Start Date Expiration Date Visits Requested Visits Authorized [id number] Pending Review Perform Procedure 05/19/2023 05/18/2024 1 1 Specialty Diagnoses / Procedures Referred By Contact Referred To Contact Gastroenterology Diagnoses Primary malignant neuroendocrine neoplasm of duodenum (CMS/HCC) Procedures EGD PA ESOPHAGOGASTRODUODENOSCOPY TRANSORAL DIAGNOSTIC PA EGD TRANSORAL BIOPSY SINGLE/MULTIPLE Jazlyn Mcarthur, BIOFUELS PROCESSING TECHNICIAN-EMPLOYMENT ATTORNEY [address] [facility] [place] [address] Referral ID Status Reason Start Date Expiration Date V isits Requested Visits Authorized [id number] Pending Review 05/19/2023 05/18/2024 1 1 Specialty Diagnoses / Procedures Referred By Contac t Referred To Contact Radiology Diagnoses Exam for clinical trial Procedures US COMPARISON OF OUTSIDE FILMS Grace Justice PA-C [address] [place] [address] Referral ID Status Reason Start Date Expiration Date V isits Requested Visits Authorized [id number] Pending Review 07/28/2023 07/27/2024 1 1 Specialty Diagnoses / Procedures Referred By Contac t Referred To Contact Gastroenterology Diagnoses Primary malignant neuroendocrine neoplasm of duodenum (Multi) Procedures Endoscopic Ultrasound ([place]) [place] [address] [facility] [address] [place] [address] Referral ID Status Reason Start Date Expiration Date V isits Requested Visits Authorized [id number] Pending Review 06/29/2023 06/28/2024 1 1 Specialty Diagnoses / Procedures Referred By Contac t Referred To Contact Radiology Diagnoses Bilateral renal cysts Adrenal adenoma, left Procedures MRI ABDOMEN W WO CONTRAST Grace Justice PA-C [address] [place] [address] Referral ID Status Reason Start Date Expiration Date Visits Re quested Visits Authorized [id number] Closed 11/30/2023 12/07/2024 1 1 Specialty Diagnoses / Procedures Referred By Contact Referred To Contact Gastroenterology Diagnoses Primary malignant neuroendocrine neoplasm of duodenum (Multi) Procedures EGD PA ESOPHAGOGASTRODUODENOSCOPY TRANSORAL DIAGNOSTIC PA EGD TRANSORAL BIOPSY SINGLE/MULTIPLE Jeremiah Magaña MD [address] [facility] [address] [place] [address] Referral ID Status Reason Start Date Expiration Date V isits Requested Visits Authorized [id number] Pending Review 07/02/2023 07/01/2024 1 1 Specialty Diagnoses / Procedures Referred By Contac t Referred To Contact Radiology Diagnoses Primary malignant neuroendocrine neoplasm of duodenum (Multi) Procedures CT chest [place] [address] [place] [address] Referral ID Status Reason Start Date Expiration Date Visits Requested Visits Authorized [id number] Authorized Perform Procedure 06/18/2023 06/17/2024 1 1 [...] section and content) DATE CREATED AUTHOR 10/12/2018 [facility] DATE CREATED AUTHOR AUTHOR'S ORGANIZ ATION 06/13/[address] [facility] DATE CREATED AUTHOR AUTHOR'S ORGANIZ ATION 12/06/2021 [facility] DATE CREATED AUTHOR AUTHOR'S ORGANIZ ATION 05/14/2022 [facility] DATE CREATED AUTHOR AUTHOR'S ORGANIZ ATION 09/17/2022 [facility] DATE CREATED AUTHOR AUTHOR'S ORGANIZ ATION 07/31/2023 Saulo Diez [facility] DATE CREATED AUTHOR AUTHOR'S ORGANIZ ATION 08/02/2023 [facility] DATE CREATED AUTHOR AUTHOR'S ORGANIZ ATION 06/27/2024 [facility] DATE CREATED AUTHOR AUTHOR'S ORGANIZ ATION 07/07/2024 [facility] DATE CREATED AUTHOR AUTHOR'S ORGANIZ ATION 11/29/2024 [facility] DATE CREATED AUTHOR AUTHOR'S ORGANIZ ATION 12/02/2024 [facility] DATE CREATED AUTHOR AUTHOR'S ORGANIZ ATION 12/19/2024 [facility] DATE CREATED AUTHOR AUTHOR'S ORGANIZ ATION 01/09/2025 [facility] EPIC Reason for Visit (unrecogniz ed section and content) Specialty Diagnoses / Procedures Referred By Contac t Referred To Contact Radiology Diagnoses Primary malignant neuroendocrine neoplasm of duodenum (CMS/HCC) Procedures CT chest abdomen pelvis w IV contrast Jazlyn Mcarthur APRN-CNP [address] [address] [facility] [place] [address] Referral ID Status Reason Start Date Expiration Date Visits Requested Visits Authorized [id number] Pending Review Perform Procedure 05/19/2023 05/18/2024 1 1 Specialty Diagnoses / Procedures Referred By Contact Referred To Contact Gastroenterology Diagnoses Primary malignant neuroendocrine neoplasm of duodenum (CMS/HCC) Procedures EGD PA ESOPHAGOGASTRODUODENOSCOPY TRANSORAL DIAGNOSTIC PA EGD TRANSORAL BIOPSY SINGLE/MULTIPLE Jazlyn Mcarthur APRN-EMPLOYMENT ATTORNEY [address] [address] [facility] [place] [address] Referral ID Status Reason Start Date Expiration Date V isits Requested Visits Authorized [id number] Pending Review 05/19/2023 05/18/2024 1 1 Reason Comments New Med Request Specialty Diagnoses / Procedures Referred By Contac t Referred To Contact Radiology Diagnoses Exam for clinical trial Procedures US COMPARISON OF OUTSIDE FILMS Grace Justice PA-C [address] [facility] [address] [place] [address] Referral ID Status Reason Start Date Expiration Date V isits Requested Visits Authorized [id number] Pending Review 07/28/2023 07/27/2024 1 1 Specialty Diagnoses / Procedures Referred By Contac t Referred To Contact Gastroenterology Diagnoses Primary malignant neuroendocrine neoplasm of duodenum (Multi) Procedures Endoscopic Ultrasound (Upper) [place] [address] [facility] [address] [place] [address] Referral ID Status Reason Start Date Expiration Date V isits Requested Visits Authorized [id number] Pending Review 06/29/2023 06/28/2024 1 1 Specialty Diagnoses / Procedures Referred By Contac t Referred To Contact Radiology Diagnoses Bilateral renal cysts Adrenal adenoma, left Procedures MRI ABDOMEN W WO CONTRAST Grace Justice PA-C [address] [facility] [address] [place] [address] Referral ID Status Reason Start Date Expiration Date Visits Re quested Visits Authorized [id number] Closed 11/30/2023 12/07/2024 1 1 Reason Comments Diabetes Hypertension Reason Comments Pain Specialty Diagnoses / Procedures Referred By Contac t Referred To Contact Orthopaedic Surgery Diagnoses Left rotator cuff tear arthropathy Chronic pain of right knee Arthritis Miriam Gatica, ANJEL [address] [place] [address] Phone: tel: fax: Jenniffer Sears PA [address] [facility] [address] [place] [address] Phone: tel: fax: Referral ID Status Reason Start Date Expiration Date V isits Requested Visits Authorized [id number] Closed Specialty Services Required 04/12/2024 10/09/2024 1 1 Specialty Diagnoses / Procedures Referred By Contact Referred To Contact Gastroenterology Diagnoses Primary malignant neuroendocrine neoplasm of duodenum (Multi) Procedures EGD PA ESOPHAGOGASTRODUODENOSCOPY TRANSORAL DIAGNOSTIC PA EGD TRANSORAL BIOPSY SINGLE/MULTIPLE Jeremiah Magaña MD [address] [address] Referral ID Status Reason Start Date Expiration Date V isits Requested Visits Authorized [id number] Pending Review 07/02/2023 07/01/2024 1 1 Specialty Diagnoses / Procedures Referred By Contac t Referred To Contact Radiology Diagnoses Primary malignant neuroendocrine neoplasm of duodenum (Multi) Procedures CT chest [place] [address] [place] [address] Referral ID Status Reason Start Date Expiration Date Visits Requested Visits Authorized [id number] Authorized Perform Procedure 06/18/2023 06/17/2024 1 1 Reason Onset Date Comments Med Refill 02/23/2024 Reason Comments Follow-up Reason Comments Med Refill Reason Comments Diabetes Reason Comments Diabetes Hyperlipidemia Hypertension Reason Onset Date Comments Med Refill 10/11/2024 Reason Onset Date Comments Med Refill 10/19/2024 Reason Comments Abdominal Pain Fever Reason Comments Medicare Annual Wellness Visit Initial Care Teams (unrecognized sec tion and content) Roll Builder Relationship Specialty Start Date End Date Renea Barajas DO [address] [place] [address] PCP - General Family Medicine 05/26/23 Roll Builder Relationship Specialty Start Date End Date Renea Barajas DO [address] [place] [address] PCP - General Family Medicine 05/26/23 Roll Builder Relationship Specialty Start Date End Date Renea Barajas DO [address] [place] [address] PCP - General Family Medicine 05/26/23 Roll Builder Relationship Specialty Start Date End Date Shaikh Ayala MD [address] [place] [address] PCP - General Internal Medicine 07/15/23 Roll Builder Relationship Specialty Start Date End Date Shaikh Ayala MD [address] [place] [address] PCP - General Internal Medicine 07/15/23 Roll Builder Relationship Specialty Start Date End Date Renea Barajas DO [address] [place] [address] PCP - General Family Medicine 05/26/23 [place] [address] [place] [address] Consulting Physician Hematology and Oncology 06/15/23 Roll Builder Relationship Specialty Start Date End Date Shaikh Ayala MD [address] [place] [address] PCP - General 07/31/23 Roll Builder Relationship Specialty Start Date End Date Shaikh Ayala MD [address] [place] [address] PCP - General 07/31/23 Roll Builder Relationship Specialty Start Date End Date Shaikh Ayala MD [address] [place] [address] PCP - General Internal Medicine 07/15/23 Renea Barajas DO [address] [place] [address] PCP - ACO Reach 08/14/23 Roll Builder Relationship Specialty Start Date End Date Renea Barajas DO [address] [facility] [address] PCP - ACO Reach 08/14/23 Miriam Gatica NP [address] [place] [address] Nurse Practitioner Family Medicine 04/12/24 Roll Builder Relationship Specialty Start Date End Date Renea Barajas DO [address] [facility] [place] [address] PCP - ACO Reach 08/14/23 Gerald Low MD [address] [place] [address] PCP - General Family Medicine 04/13/24 Miriam Gatica NP [address] [place] [address] Nurse Practitioner Family Medicine 04/12/24 Roll Builder Relationship Specialty Start Date End Date Renea Barajas DO [address] [place] [address] PCP - ACO Reach 08/14/23 Gerald Low MD [address] [place] [address] PCP - General Family Medicine 04/13/24 Miriam Gatica NP [address] [place] [address] Nurse Practitioner Family Medicine 04/12/24 Roll Builder Relationship Specialty Start Date End Date Renea Barajas DO [address] [place], [place] [id number] PCP - ACO Reach 08/14/23 Gerald Low MD [address] [place] [address] PCP - General Family Medicine 04/13/24 Miriam Gatica NP [address] [place] [address] Nurse Practitioner Family Medicine 04/12/24 Roll Builder Relationship Specialty Start Date End Date Renea Barajas DO [address] [place] [address] PCP - General Family Medicine 05/26/23 [place] [address] [place] [address] Consulting Physician Hematology and Oncology 06/15/23 Roll Builder Relationship Specialty Start Date End Date Shaikh Ayala MD [address] [place] [address] PCP - General Internal Medicine 12/31/23 [place] [address] [place] [address] Consulting Physician Hematology and Oncology 06/15/23 Roll Builder Relationship Specialty Start Date End Date Shaikh Ayala MD [address] [place] [address] PCP - General Internal Medicine 07/15/23 Renea Barajas DO [address] [facility] [place] [address] PCP - ACO Reach 08/14/23 Roll Builder Relationship Specialty Start Date End Date Shaikh Ayala MD [address] [place] [address] PCP - General Internal Medicine 07/15/23 Renea Barajas DO [address] [facility] [place] [address] PCP - ACO Reach 08/14/23 Roll Builder Relationship Specialty Start Date End Date Shaikh Ayala MD [address] [place] [address] PCP - General Internal Medicine 12/31/23 [place] [address] [place] [address] Consulting Physician Hematology and Oncology 06/15/23 Roll Builder Relationship Specialty Start Date End Date Shaikh Ayala MD [address] [place] [address] PCP - General Internal Medicine 12/31/23 [place] [address] [place] [address] Consulting Physician Hematology and Oncology 06/15/23 Roll Builder Relationship Specialty Start Date End Date Renea Barajas DO [address] [place] [address] PCP - ACO Reach 08/14/23 Gerald Low MD [address] [place] [address] PCP - General Family Medicine 04/13/24 Miriam Gatica NP [address] [place] [address] Nurse Practitioner Family Medicine 04/12/24 Roll Builder Relationship Specialty Start Date End Date Renea Barajas DO [address] [facility] [place] [address] PCP - ACO Reach 08/14/23 Gerald Low MD [address] [place] [address] PCP - General Family Medicine 04/13/24 Miriam Gatica NP [address] [place] [address] Nurse Practitioner Family Medicine 04/12/24 Roll Builder Relationship Specialty Start Date End Date Gerald Low MD [address] [place] [address] PCP - General Family Medicine 04/13/24 Renea Barajas DO [address] [place] [address] PCP - ACO Reach 07/29/24 Miriam Gatica NP Nurse Practitioner Family Medicine 04/12/24 Roll Builder Relationship Specialty Start Date End Date Gerald Low MD [address] [place] [address] PCP - General Family Medicine 04/13/24 Renea Barajas DO [address] [facility] [place], [place] [address] PCP - ACO Reach 07/29/24 Miriam Gatica NP Nurse Practitioner Family Medicine 04/12/24 Roll Builder Relationship Specialty Start Date End Date Gerald Low MD [address] [place] [address] PCP - General Family Medicine 04/13/24 Miriam Gatica NP Nurse Practitioner Family Medicine 04/12/24 Roll Builder Relationship Specialty Start Date End Date Gerald Low MD [address] [place] [address] PCP - General Family Medicine 04/13/24 Miriam Gatica NP Nurse Practitioner Family Medicine 04/12/24 Roll Builder Relationship Specialty Start Date End Date Gerald Low MD [address] [place] [address] PCP - General Family Medicine 04/13/24 Miriam Gatica NP Nurse Practitioner Family Medicine 04/12/24 Roll Builder Relationship Specialty Start Date End Date Gerald Low MD [address] [place] [address] PCP - General Family Medicine 04/13/24 Miriam Gatica NP Nurse Practitioner Family Medicine 04/12/24 Roll Builder Relationship Specialty Start Date End Date Gerald Low MD [address] [place] [address] PCP - General Family Medicine 04/13/24 Miriam Gatica NP Nurse Practitioner Family Medicine 04/12/24 Roll Builder Relationship Specialty Start Date End Date Gerald Low MD [address] [place] [address] PCP - General Family Medicine 04/13/24 Miriam Gatica NP Nurse Practitioner Family Medicine 04/12/24 Roll Builder Relationship Specialty Start Date End Date Gerald Low MD [address] [place] [address] PCP - General Family Medicine 04/13/24 Miriam Gatica NP Nurse Practitioner Family Medicine 04/12/24 Roll Builder Relationship Specialty Start Date End Date Gerald Low MD [address] [place] [address] PCP - General Family Medicine 04/13/24 Miriam Gatica NP Nurse Practitioner Family Medicine 04/12/24 Roll Builder Relationship Specialty Start Date End Date Gerald Low MD [address] [place] [address] PCP - General Family Medicine 04/13/24 Miriam Gatica NP Nurse Practitioner Family Medicine 04/12/24 Roll Builder Relationship Specialty Start Date End Date Gerald Low MD [address] [place] [address] PCP - General Family Medicine 04/13/24 Miriam Gatica NP Nurse Practitioner Family Medicine 04/12/24 Roll Builder Relationship Specialty Start Date End Date Gerald Low MD [address] [place] [address] PCP - General Family Medicine 04/13/24 Miriam Gatica NP Nurse Practitioner Family Medicine 04/12/24 Roll Builder Relationship Specialty Start Date End Date Shaikh Ayala MD PCP - General 07/31/23 Roll Builder Relationship Specialty Start Date End Date Gerald Low MD [address] [place] [address] PCP - General Family Medicine 04/13/24 Miriam Gatica NP Nurse Practitioner Family Medicine 04/12/24 Roll Builder Relationship Specialty Start Date End Date Gerald Low MD [address] [place] [address] PCP - General Family Medicine 04/13/24 Miriam Gatica NP Nurse Practitioner Family Medicine 04/12/24 Roll Builder Relationship Specialty Start Date End Date Shaikh Ayala MD PCP - General 07/31/23 Roll Builder Relationship Specialty Start Date End Date Gerald Low MD [address] [place] [address] PCP - General Family Medicine 04/13/24 Miriam Gatica NP Nurse Practitioner Family Medicine 04/12/24 Roll Builder Relationship Specialty Start Date End Date Gerald Low MD [address] [place] [address] PCP - General Family Medicine 04/13/24 Miriam Gatica NP Nurse Practitioner Family Medicine 04/12/24 Roll Builder Relationship Specialty Start Date End Date Gerald Low MD [address] [place] [address] PCP - General Family Medicine 04/13/24 Miriam Gatica NP Nurse Practitioner Family Medicine 04/12/24 Team Status: Active Member Role Status Dates Tomeka Rosado NIGHT FILLER-C Primary Care Provider Active Team Status: Active [...] BE BASED ON THE PRIMARY CLINICAL RECORDS. [facility] [employer] provides no warranty or guarantee of the accuracy or completeness of information in this document.
--- NOTE | 2025-03-20 15:49 | SWNOTE1 ---
Important Message from [employer] reviewed and discussed with patient. Pt. verbalized understanding and signed the form. Original given to patient and copy placed in patient?s chart.
--- NOTE | 2025-03-20 15:49 | SWNOTE1 ---
SW met with pt and in room. Pt lives at home with and is independent. Pt has no anticipated discharge needs at this time. SW to follow as needed.
[2025-03-20] MEDS: FUROSEMIDE 20 MG/2 ML VIAL IVP (16:20)
[2025-03-20] MEDS: ENOXAPARIN SODIUM 60 MG/0.6 ML SYRINGE SUBQ (16:25)
--- NOTE | 2025-03-20 20:01 | PM.CACN ---
History of Present Illness History of Present Illness Consult date: 03/20/25 Requesting physician: Ruben Coats Consult reason: chest pain (elevated troponin) and shortness of breath Chief complaint: Shortness of breath, CHF Narrative: This is a 74-year-old man with prior history of mild coronary artery disease by cardiac catheterization in July 2023, nonsustained atrial tachycardia followed up in the electrophysiology clinic by Dr. 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 He urinated and came back and felt significant chest pressure and shortness of breath. He checked his oxygen by pulse oximeter and this was in the 80s. He checked his blood pressure and this was significantly elevated at 200/100. He presented to the emergency room. During the course of the day he was found to have elevated troponin that went up and trended down. His BNP was elevated. He was given IV diuretic. His blood pressure improved [he took amlodipine at home after he found that his blood pressure was significantly elevated]. His EKG here shows left bundle branch block. [Prior EKG in 2023 did not show left bundle branch block]. His echocardiogram today showed low normal ventricular systolic function with an EF of 50 to 55% with no valvular dysfunction. CTA chest today did not show PE. Currently he reports that he has been feeling better. He has had no recurrence of chest pain. His breathing is much better. Review of Systems ROS Status of ROS 10 or more systems reviewed and unremarkable except as noted in history and below Cardiovascular Reports: chest pain and shortness of breath with exertion [facility] Medical History Bradycardia with 31-40 beats per minute ?R00.1 - Bradycardia, unspecified (ICD-10) Paroxysmal cardiac arrhythmia ?I49.8 - Other specified cardiac arrhythmias (ICD-10) Dizziness ?R42 - Dizziness and giddiness (ICD-10) Edema ?R60.9 - Edema, unspecified (ICD-10) Gout ?M10.9 - Gout, unspecified (ICD-10) Rotator cuff injury ?S46.009A - Unspecified injury of muscle(s) and tendon(s) of the rotator cuff of unspecified shoulder, initial encounter (ICD-10) Surgical History FH: cholecystectomy ?Z83.79 - Family history of other diseases of the digestive system (ICD-10) History of appendectomy ?Z90.49 - Acquired absence of other specified parts of digestive tract (ICD-10) Family History Father Family history of cancer Family history of diabetes mellitus Family history of hypertension Mother Family history of cancer Family history of hypertension Social History Within the past year, how often did you have a drink containing alcohol: never Score interpretation: A score less than 4 is consistent with normal alcohol consumption. Smoking status: Former smoker Non-prescribed substance use: denies use Previous occupational history: retired Highest level of school completed/degree received: high school graduate Are you now , , , , never or living with a partner: In a typical week, how many times do you talk on the telephone with family, friends, or neighbors: 3 or more times per week How often do you get together with friends or relatives: 3 or more times per week How often do you attend buddhism or cheondoism services: never Little interest or pleasure in doing things: not at all Feeling down, depressed, or hopeless: not at all Feel stressed/tense/nervous/anxious/difficulty sleeping: not at all Do you think of yourself as: straight/heterosexual Gender Identity: male Meds Home Medications and Allergies Home Medications ?Medication ?Instructions ?Recorded ?Confirmed ?Type allopurinol 300 mg tablet 300 mg PO DAILY 07/09/23 03/20/25 History fluticasone propionate 50 1 spray intranasal DAILY PRN 07/09/23 03/20/25 History mcg/actuation nasal allergy symptoms spray,suspension (24 Hour Allergy Relief) furosemide 20 mg tablet 20 mg PO DAILY 07/09/23 03/20/25 History losartan 100 mg tablet 100 mg PO DAILY 07/09/23 03/20/25 History omeprazole 40 mg capsule,delayed 40 mg PO DAILY 07/09/23 03/20/25 History release rosuvastatin 10 mg tablet 20 mg PO DAILY 07/09/23 03/20/25 History bisoprolol fumarate 10 mg tablet 10 mg PO BID 10/07/23 03/20/25 History glimepiride 4 mg tablet 4 mg PO DAILY 10/07/23 03/20/25 History tamsulosin 0.4 mg capsule 0.4 mg PO DAILY 10/07/23 03/20/25 History empagliflozin 25 mg tablet 25 mg PO QDAY 08/23/24 03/20/25 History (Jardiance) amlodipine 5 mg tablet 5 mg PO DAILY 12/13/24 03/20/25 History Allergies Allergy/AdvReac Type Severity Reaction Status Date / Time ciprofloxacin (From Cipro) Allergy Severe Diarrhea Verified 08/23/24 16:24 erythromycin base Allergy Severe Diarrhea Verified 08/23/24 16:24 lisinopril Allergy Severe Cough Verified 08/23/24 16:24 Exam Constitutional Vital Signs, click to edit/add: Last Vital Signs Temp 98 F 03/20/25 14:08 Pulse 90 03/20/25 19:45 Resp 18 03/20/25 14:08 BP 138/88 03/20/25 14:08 Pulse Ox 92 L 03/20/25 16:14 O2 Del Method Room Air 03/20/25 16:14 O2 Flow Rate 2 03/20/25 04:57 Common normals: no apparent distress General appearance: cooperative and comfortable Orientation/consciousness: Yes awake, Yes oriented to person, Yes oriented to place and Yes oriented to time HENAL Common normals: normocephalic Eye Common normals: conjunctivae normal Neck & C-Spine Common normals: no JVD and no carotid bruits Chest Common normals: inspection of chest normal Respiratory Common normals: normal respiratory effort Auscultation: clear to auscultation bilaterally Cardio Common normals: regular rate, regular rhythm, S1 normal heart sound, S2 normal heart sound, no gallops and no murmurs Extremity Common normals: no clubbing, cyanosis or edema and no pedal edema Neuro Common normals: oriented x3, moves all extremities and no focal motor deficits Results Labs and Meds Lab results: Lipids 03/20/25 Range/Units 07:52 Triglycerides 114 (<=150) mg/dL Cholesterol 111 (<=200) mg/dL HDL Cholesterol 31 L (40-60) mg/dL Cholesterol/HDL Ratio 3.6 CBC 03/20/25 Range/Units 02:40 WBC 13.3 H (4.0-11.0) 10^3/uL RBC 5.18 (4.70-6.10) 10^6/uL Hgb 15.1 (14.0-18.0) g/dL Hct 46.2 (42.0-54.0) % Plt Count 415 (150-450) 10^3/uL Neut # (Auto) 10.9 H (1.4-6.5) 10^3/uL Lymph # (Auto) 1.4 (1.2-3.8) 10^3/uL [place] # (Auto) 0.8 (0.3-0.8) 10^3/uL Eos # (Auto) 0.2 (0.0-0.7) 10^3/uL Baso # (Auto) 0.0 (0.0-0.1) 10^3/uL Comprehensive Metabolic Panel 03/20/25 03/20/25 Range/Units 02:40 07:52 Sodium 139 141 (136-145) mmol/L Potassium 4.3 4.5 (3.5-5.1) mmol/L Chloride 105 105 (98-107) mmol/L Carbon Dioxide 22.9 25.1 (21.0-32.0) mmol/L BUN 31.0 H 28.0 H (7.0-18.0) mg/dL Creatinine 1.29 1.28 (0.70-1.30) mg/dL Glucose 170 H 152 H (74-106) mg/dL Calcium 9.1 9.3 (8.5-10.1) mg/dL Intake and Output 03/20/25 03/20/25 03/20/25 07:59 15:59 23:59 Intake Total 150 / 150 Output Total 1100 / 1100 Balance 150 / -950 -1100 / -950 Intake: Oral 150 / 150 Output: Urine 1100 / 1100 Other: # Unmeasured Voids 1 Weight 104.326 kg 103.9 kg Patient Weight 03/21/25 07:59 Weight 103.9 kg Imaging and Cardiology Echo: report reviewed (1. Moderate concentric left ventricular hypertrophy with low normal systolic function. Estimated LVEF is 50 to 55%. Segmental wall motion is difficult to assess due to lack of good endocardial border definition. 2. Normal right ventricular size and systolic function.) Assessment and Plan Assessment and Plan (1) NSTEMI (non-ST elevated myocardial infarction): (2) LBBB (left bundle branch block): (3) Acute diastolic heart failure: (4) Hypertensive emergency: Plan His presentation is significant for symptoms suggestive of coronary ischemia as well as diastolic heart failure, presence of left bundle branch block which appears to be new for him compared to prior ECG, low normal LV systolic function by echocardiogram. It is possible that this could have been manifestation of hypertensive emergency however, the rise and drop in troponin is more consistent with acute coronary syndrome rather than heart failure or hypertension related troponin rise. I explained the above to him and his . I recommended transfer to [facility] for coronary angiography given the above presentation. I explained the procedure in detail along with risks and benefits including risk of [place], stroke and . He understands and agrees. I have contacted the hospitalist Dr Coats with him of the above. He will initiate transfer to [facility]. Meanwhile continue antiplatelet and anticoagulation therapy.
--- NOTE | 2025-03-20 20:57 | P.EN_ITS ---
Event Note Event Note: I called and ddiscussed his case with Dr Subramanian around 2 PM, Shortly after I saw pt in ED. I notified Dr Santana of rising Trop and my concern that pt may be having NSTEMI He did not think that pt is having an SD given his unremarkable coronary angiogram done last year. He recommended to keep med tx until he sees him late after noon. Dr Santana called me at 7:43 PM after he saw pt to give me his recommendations to transfer him to [facility] for a cath in AM. A call will be placed to [facility] transfer line to initiate transfer. I will make pt NPO. Pt already had received ASA, Plavix, BB and Therapeutic dose of LMWH. CT chest also showed adrenal nodule. I recommend [facility] team to consult endo team to evaluate this further.
[2025-03-20] MEDS: ATORVASTATIN CALCIUM 40 MG TABLET PO (21:27)
[2025-03-20] MEDS: SPIRONOLACTONE 25 MG TABLET 12 MG PO (21:27)
[2025-03-20] MEDS: TAMSULOSIN HCL 0.4 MG CAPSULE PO (21:27)
[2025-03-20] MEDS: ALLOPURINOL 300 MG TABLET PO (21:27)
[2025-03-20] MEDS: REMOVE PATCH 1 PATCH TOPICAL (21:28)
--- NOTE | 2025-03-21 07:48 | P.DS_ITS ---
DS: Providers Provider Date of admission: 03/20/25 13:53 Primary care physician: Tomeka Rosado NP Consults: 03/20/25 07:22 Consult to Cardiology Routine Reason for consultation: CHF, CAD eval and recommendation DS: Diagnosis Discharge Diagnosis (1) NSTEMI (non-ST elevated myocardial infarction): (2) LBBB (left bundle branch block): (3) Acute diastolic heart failure: (4) Hypertensive emergency: Plan As listed above, below and others that are not listed DS: Summary Hospital Course Hospital Course: Mr. Car is a 74-year-old gentleman who came in with shortness of breath and was found to have the following: Evidence of acute congestive heart failure. Suspect acute diastolic heart failure, probably systolic as well Hypoxic respiratory failure secondary to above. No evidence of pulmonary embolism or pneumonia. Elevated BNP, vascular congestion seen on chest x-ray and CT imaging. I have accepted admit patient to the medical floor Telemetry monitoring, echocardiogram, diuretics. Cardiac consultation Elevated troponin, NSTEMI I excepted patient to be admitted to [facility] this morning when his troponin was 63. I already started patient on aspirin, beta-janet and statin. I gave him a dose of Plavix 150 mg daily. I requested repeat troponin which came back elevated at 112 after I had accepted to admit him to the [facility] floor at [place]. At this time I will change his Lovenox to therapeutic dose 1 mg/kg twice a day. Patient reported that he had a cardiac cath 2 years ago in [place] and was told that he does not have any blockage. Not sure if the initial insult is NSTEMI which had led to heart failure or heart failure causing hypoxic respiratory failure and causing type II high demand NJ Again the patient is already on aspirin, Plavix, beta-janet and statin. I changed his Lovenox to therapeutic dose. Echocardiogram to assess cardiac function, rule out cardiomyopathy or valvular disease. Cardiac consultation had been ordered already for CHF. Patient may require second cardiac catheter to rule out to progression of his CAD. Potentially, patient may need to be transferred to [facility] or [place]. He sees Dr. San with the [facility]. Defer for any diagnostic and therapeutic invention relative to his cardiovascular status to cardiology team I called Dr. Subramanian around 2 PM shortly after I saw patient in the emergency room department and notified him about needing a cardiac consultation, rising troponin and my concern that patient may be having a primary NSTEMI with a left bundle branch block causing him to have acute diastolic or systolic heart failure. He reviewed angiogram report that was done on this patient in [place] within the last year and a half. He did not feel after given information that the patient was having acute NJ. Subsequently he called me around 7:45 PM requesting patient to be transferred to [facility] for cardiac cath the next day. Patient was transferred in stable condition. Hypertension, fair control Continue beta-janet and ARB Diabetes Resume preadmission home medications. Started him on sliding scale coverage Chronic, subacute medical conditions not listed above, abnormal labs and imaging. These would need to be addressed. Could be addressed later on or in the outpatient setting by PCP collaboration with other needed outpatient providers when time and condition are appropriate. Chronic, subacute medical conditions not listed above, abnormal labs and imaging. Adrenal and thyroid nodule seen on CT these would need to be addressed. Could be addressed at [facility] by endocrinology team. This also could be addressed later on or in the outpatient setting by PCP collaboration with other needed outpatient providers when time and condition are appropriate. Time Spent with Patient Time attestation: Total time spent providing and/or coordinating discharge services: Exam Constitutional Vital Signs, click to edit/add: Last Vital Signs Temp 97.5 F L 03/20/25 20:00 Pulse 73 03/20/25 23:47 Resp 18 03/20/25 20:00 BP 134/73 03/20/25 20:00 Pulse Ox 98 03/20/25 20:16 O2 Del Method Room Air 03/20/25 20:16 O2 Flow Rate 2 03/20/25 04:57 DS: Data Data Completed and Pending Labs on day of discharge: Labs from last 24 hours 03/20/25 03/20/25 03/20/25 21:24 15:59 14:33 Sodium Potassium Chloride Carbon Dioxide Anion Gap BUN Creatinine Est GFR ( Amer) Est GFR (Non-Af Amer) BUN/Creatinine Ratio Glucose Calcium Phosphorus Magnesium Troponin I High Sens 85.0 H* Triglycerides Cholesterol LDL Cholesterol, Calc VLDL Cholesterol HDL Cholesterol Cholesterol/HDL Ratio TSH POC Glucose 179 H 98 03/20/25 03/20/25 12:24 07:52 Sodium 141 Potassium 4.5 Chloride 105 Carbon Dioxide 25.1 Anion Gap 15.4 BUN 28.0 H Creatinine 1.28 Est GFR ( Amer) >60 Est GFR (Non-Af Amer) 55 L BUN/Creatinine Ratio 21.9 Glucose 152 H Calcium 9.3 Phosphorus 4.0 Magnesium 2.2 Troponin I High Sens 112.1 H* Triglycerides 114 Cholesterol 111 LDL Cholesterol, Calc 58.0 VLDL Cholesterol 22.8 HDL Cholesterol 31 L Cholesterol/HDL Ratio 3.6 TSH 1.983 POC Glucose 126 H Discharge Plan Discharge Disposition: Xfer Acute Care Hospital Condition: [place] Restrictions/Additional Instructions: Cat scan of chest showed adrenal gland lesion [facility] team, please consult endocrinology to investigate this further. Discharging you is by no mean the end of your care. You will likley require to have additional work up, investigation and therapeutic intervention. Please aks your primary care doctor to obtain cecilia record entirely to follow up on needed medical care in out pt setting in collaboration with other specialists Discharge Date/Time: 03/21/25 00:30 Discharge Location: [facility]
== END 2025-03-21 00:30 | disposition short-term general hospital (02) | DRG 280 ==
LOC: ER 13:38 → MS 13:57
PROVIDERS: Admitting Provider Internal Medicine; Emergency Provider Emergency Medicine; PCP Nurse Practitioner; Visit Provider Internal Medicine
DX: I21.4 Non-ST elevation (NSTEMI) myocardial infarction (principal); I50.31 Acute diastolic (congestive) heart failure; J96.91 Respiratory failure, unspecified with hypoxia; I16.1 Hypertensive emergency; I11.0 Hypertensive heart disease with heart failure; Z87.891 Personal history of nicotine dependence; I44.7 Left bundle-branch block, unspecified; E11.9 Type 2 diabetes mellitus without complications; Z79.84 Long term (current) use of oral hypoglycemic drugs; Z90.49 Acquired absence of other specified parts of digestive tract; E04.1 Nontoxic single thyroid nodule; E27.9 Disorder of adrenal gland, unspecified; I25.10 Atherosclerotic heart disease of native coronary artery without angina pectoris
CPT/HCPCS: 36415; 71045; 71275; 80048; 80053; 80061; 82948; 83735; 83880; 84100; 84443; 84484; 85025; 85378; 87804; 87811; 93005; 93306; 94761; 96372; 96374; 96376; 99285; J1650; J1938; Q9967

== ENCOUNTER 2025-04-05 09:19 | Outpatient (OUT) | payer MEDICARE, OTHER, SELFPAY ==
--- OUTSIDE RECORDS SUMMARY | 2025-03-21 01:32 | XMS_ITS | Encounter Summary ---
Author Organization [facility] Address [address] [place] [address] Care Team Providers Care Help Desk Support Name Role Phone Tomeka Rosado MD Primary Care Provider [phone] Reason for Referral * (Emergency) - Pending ReviewSpecialtyDiagnoses / ProceduresReferred By Contact Referred To Contact Procedures ECG 12 lead Skylar Mejia CNP [address] [place] [address] Phone: tel: fax: Referral IDStatusReasonStart DateExpiration DateVisits RequestedVisits [id number] [id number]/ Reason for Visit * Auth/Cert (Routine)SpecialtyDiagnoses / ProceduresReferred By ContactReferred To Contact Diagnoses Elevated troponin NSTEMI Procedures NO CODED SERVICE Sukhjinder Schmitz MD [address] [place] [address] Phone: tel: fax: [facility] [address] [place] [address] Phone: tel: fax: Referral IDStatusReasonStart DateExpiration DateVisits RequestedVisits [id number] Encounter Details DateTypeDepartmentCare Team (Latest Contact Info)Wxddmpepsff93/07/2025 1:32 AM EDT - 03/22/2025 2:36 PM EDTHospital Encounter [facility] [address] [place] [address] Sukhjinder Schmitz MD [address] [place] [address] Elevated troponin (Primary Dx); NSVT (nonsustained ventricular tachycardia) (CMS/HCC) Discharge Disposition: Home or Self Care (01) Social History Tobacco UseTypesPacks/DayYears UsedDateSmoking Tobacco: EnkqtjPaqkxxwgth722.9 10/14/1967 - 09/14/1983Smokeless Tobacco: NeverAlcohol UseStandard Drinks/Week CommentsNot Currently0 (1 standard drink = 0.6 oz pure alcohol)I rarely drink. [facility] UtilitiesAnswerDate RecordedIn the past 12 months has the [employer], gas, oil, or water TRADE TO REBATE threatened to shut off services in your home?No03/21/2025 Humiliation, Afraid, Rape, and Kick questionnaireAnswerDate RecordedWithin the last year, have you been afraid of your partner or ex-partner?No03/21/2025 Emotionally AbusedNot on file03/21/2025Physically AbusedNot on file03/21/2025 Sexually AbusedNot on file03/21/2025Overall Financial Resource Strain (CARDIA) AnswerDate RecordedHow hard is it for you to pay for the very basics like food, housing, medical care, and heating?Not hard at all03/21/2025TransportationAnswer Date RecordedIn the past 12 months, has lack of transportation kept you from medical appointments or from getting medications?No03/21/2025Lack of Transportation (Non-Medical)Not on file03/21/2025Housing Stability Vital Sign AnswerDate RecordedIn the last 12 months, was there a time when you were not able to pay the mortgage or rent on time?No03/21/2025In the past 12 months, how many times have you moved where you were living?t any time in the past 12 months, were you homeless or living in a custodial (including now)?No 03/21/2025Hunger Vital SignAnswerDate RecordedWithin the past 12 months, you worried that your food would run out before you got the money to buymore.Never true03/21/2025Ran Out of Food in the Last YearNot on file03/21/2025Sex and Gender InformationValueDate RecordedSex Assigned at LegsgFpul63/13/2024 6:49 AM ESTLegal NgxGtyn5312/12/2021 12:14 AM EDTGender OstxgpceKycw17/13/2024 6:49 AM EST Sexual OrientationHeterosexual or Trslwgjn04/13/2024 6:49 AM ESTdocumented as of this encounter Last Filed Vital Signs Vital SignReadingTime TakenCommentsBlood Mwytxpyf850/8703/22/2025 12:00 PM EDT Opcun333903/22/2025 12:00 PM TRSKjgznvvjbua03.5 ??C (97.7 ??F)03/22/2025 8:00 AM EDTRespiratory Mulz8495 8:00 AM EDTOxygen Fpadgavtzk42%03/22/2025 12:00 PM EDTInhaled Oxygen Concentration--Ivrtpl138 kg (226 lb 6.4 oz)03/22/2025 1:38 AM BFVNyssnx305.8 cm (5' 10 )03/21/2025 1:40 AM EDTBody Mass Index32.49 03/21/2025 1:40 AM EDTdocumented in this encounter Functional Status * QuestionAnswerDate of PzefylttcyAlnkpeRS104/8703/22/2025 12:00 PM Denny Oconnor RNPulse7503/22/2025 12:00 PM Denny Oconnor RNHeart Rate Source Mcgcavc4303/22/2025 8:00 AM Denny Oconnor RNPatient PositionLying 03/22/2025 4:00 AM Ashley Goldstein RN * Griffith Fall RiskQuestionAnswerDate of AssessmentAuthorHistory of Falling, Immediate or Within 3 Wzzxtj652/08/2025 8:00 AM Denny Oconnor RN Secondary Ksfjdovpm8751/08/2025 8:00 AM Denny Oconnor RNAmbulatory Aid0 03/22/2025 8:00 AM Denny Oconnor RNIntravenous Therapy/Heparin Lock20 03/22/2025 8:00 AM Denny Oconnor RNGait/Zseupsqxbyfp535/08/2025 8:00 AM Denny Oconnor, RNMental Tkcfho340/08/2025 8:00 AM Denny Oconnor RN Griffith Fall Risk Bczga121403/22/2025 8:00 AM Denny Oconnor, RN * Amari ScaleQuestionAnswerDate of AssessmentAuthorBraden No Risk Interventions Continue to assess patient according to level of care03/22/2025 8:00 AM LIZETT Denny Lester, RNSensory Nwqtzooghis123/08/2025 8:00 AM Denny Oconnor, OSKnsimksg431/08/2025 8:00 AM Denny Oconnor, GTMtxymrle965/08/2025 8:00 AM Denny Oconnor, EZHnukpkfl294/08/2025 8:00 AM Denny Oconnor RN Zbciwoenp726/08/2025 8:00 AM Denny Oconnor, RNFriction and Shear3 03/22/2025 8:00 AM Denny Oconnor RNBraden Scale Hxkxv9577/08/2025 8:00 AM Denny Oconnor, RN * Pain Assessment TimerQuestionAnswerDate of AssessmentAuthorRestart Pain Assessment DmccwEju17/08/2025 8:00 AM Denny Oconnor RN * Sepsis Model ScoresQuestionAnswerDate of AssessmentAuthorEarly Detection of Sepsis Score2.0110 2:31 PM Pepe PalafoxEarly Detection of Sepsis Score0.210 2:31 PM Pepe Palafox * Pain AssessmentQuestionAnswerDate of AssessmentAuthorPain Interventions Vyxganhi62/08/2025 8:00 AM Denny Oconnor RNPatient's Stated Pain GoalNo pain03/22/2025 8:00 AM Denny Oconnor RNPain AssessmentNo/denies pain 03/22/2025 8:00 AM Denny Oconnor RN * Audit Alcohol ScreeningQuestionAnswerDate of AssessmentAuthorHow often do you have a drink containing alcohol? 1:52 AM Luz Richter RNHow many standard drinks containing alcohol do you have on a typical day?No 03/21/2025 1:52 AM Luz Richter RNHow often do you have six or more drinks on one occasion? 1:52 AM Luz Richter RNAudit-C Score0 03/21/2025 1:52 AM Luz Richter RN * Deterioration Index ScoreQuestionAnswerDate of AssessmentAuthorDeterioration Index Score22.6403/22/2025 2:31 PM Pepe Palafox * Head, Ears, Eyes, Nose, and Throat (HEENT)QuestionAnswerDate of Assessment AuthorHead, Ears, Eyes, Nose, and Throat (WDL)X1 8:00 AM Denny Oconnor RNR EyeMildly impaired vision;Corrective qscokb4603/22/2025 8:00 AM Denny Alamo RNL EyeMildly impaired vision;Corrective olewxy8503/22/2025 8:00 AM Denny Oconnor RNR EarMildly impaired xnuzkcq8103/22/2025 8:00 AM Denny Oconnor RNL EarMildly impaired ouetwau0503/22/2025 8:00 AM Denny Alamo RNNoseIntact03/21/2025 8:00 PM Ashley Goldstein RNThroat Cyfqek3103/21/2025 12:33 PM Rayna Alfred RNTonguePink;Moist03/21/2025 12:33 PM Rayna Alfred RNMucous Membrane(s)Moist;Corinne;Vzacvf7503/21/2025 12:33 PM Rayna Alfred RNTeethIntact03/21/2025 8:00 PM Ashley Goldstein RNHead and GizuKoylapdueri54/08/2025 8:00 AM Denny Oconnor RN AmxsDlndvpbjzcr95/07/2025 12:33 PM Rayna Alfred RN * QuestionAnswerDate of AssessmentAuthorMAP (mmHg)9403/22/2025 12:00 PM Denny Alamo RN * Short Portable Mental StatusQuestionAnswerDate of AssessmentAuthorWhat are the date, month, year? 8:00 AM Denny Oconnor RNWhat is the day of the week? 8:00 AM Denny Oconnor RNWhat is the name of this place? 8:00 AM Denny Oconnor RNWhat is your phone number?0 03/22/2025 8:00 AM Denny Oconnor RNHow old are you? 8:00 AM Denny Oconnor RNWhen were you born? 8:00 AM Denny cOonnor RNWho is the current president? 8:00 AM Denny Oconnor RNWho was the president before him? 8:00 AM Denny Oconnor RN What was your mother's maiden name? 8:00 AM Denny Oconnor RN Can you count backward from 20 by 3s? 8:00 AM Denny Oconnor RNShort Portable Mental Mrqwe827 8:00 AM Denny Oconnor RN * Fall Risk LevelQuestionAnswerDate of AssessmentAuthorMobility zoneLow (Green Zone)03/22/2025 8:00 AM Denny Oconnor RNMorse fall risk zoneLow (Green Zone)03/22/2025 8:00 AM Denny Oconnor RNMental status questionaire zone Low (Green Zone)03/22/2025 8:00 AM Denny Oconnor RN * Skin Assessment Sign offQuestionAnswerDate of AssessmentAuthorDual Sign-off - Admission/TransferAllyse RN03/21/2025 1:40 AM Ashley Goldstein RNAny new wounds identified on admission/transfer?No03/21/2025 1:40 AM Ashley Goldstein RNProvider notified of new qbwyeSh1903/21/2025 1:40 AM Ashley Goldstein RN * QuestionAnswerDate of KgigacnlayLdxrifEeB09856/08/2025 12:00 PM Denny Oconnor RN * QuestionAnswerDate of VtmwbwjiheXttrrmBF661/8703/22/2025 12:00 PM Denny Oconnor, SYAcgq04.710 8:00 AM Denny Oconnor RNTemp srcTemporal 03/22/2025 8:00 AM Denny Oconnor EIZamsg1027/08/2025 12:00 PM EDT Denny Lester RRZjnr7313/08/2025 8:00 AM Denny Oconnor RNHeart Rate IcvdtjTtesysx85/08/2025 8:00 AM Denny Oconnor RNBP LocationLeft arm 03/22/2025 8:00 AM Denny Oconnor RNBP XszwziCnbmbqsiu44/08/2025 8:00 AM Denny Oconnor RNCardiac NoemexNSQ11/08/2025 4:00 AM Ashley Goldstein RNPulse rate from Plethysmogram (bpm)4703/21/2025 4:01 PM Rayna Alfred RNPatient MmmprlxoNxbmk51/08/2025 4:00 AM Ashley Goldstein RN * QuestionAnswerDate of AssessmentAuthorLevel of LdhubursibbkfZovqk50/07/2025 8:00 PM Ashley Goldstein RNOrientation LevelOriented X41 8:00 PM Ashley Goldstein RNCognitionAppropriate judgement;Follows commands 03/21/2025 8:00 PM Ashlye Goldstein RNSpeechClear1 8:00 PM EDT Ashley López RNL Pupil FparopvoTyldf09/07/2025 12:33 PM Rayna Alfred, RNL Pupil Size (mm) 12:33 PM Rayna Alfred, RNR Pupil RozcrbwzFvmsd45/07/2025 12:33 PM Rayna Alfred, RNR Pupil Size (mm)3 03/21/2025 12:33 PM Rayna Alfred, RNLUE SensationFull sensation 03/21/2025 12:33 PM Rayna Alfred, RNLLE SensationFull sensation 03/21/2025 12:33 PM Rayna Alfred, RNRLE SensationFull sensation 03/21/2025 12:33 PM Rayna Alfred, RNSwallowAble to swallow solids and liquids without obywgqbooc33/07/2025 8:00 PM Ashley Goldstein RNR Pupil BmgadcbyzloMeyizejd50/07/2025 12:33 PM Rayna Alfred, RNL Pupil EmcejhgfxwhVyiplnlr74/07/2025 12:33 PM Rayna Alfred, RNR Hand Grasp Aooryrqx54/07/2025 8:00 PM Ashley Goldstein, RNL Hand GraspModerate 03/21/2025 8:00 PM Ashley Goldstein, RNR Foot BjtbfunnxsolKsmqputf27/07/2025 8:00 PM Ashley Goldstein, RNL Foot DicieiepegazDzyuroha63/07/2025 8:00 PM Ashley Goldstein, RNR Foot Plantar JoybthcYveyfhes11/07/2025 8:00 PM EDT Ashley López, RNL Foot Plantar ZqbecolUgxidwkh06/07/2025 8:00 PM EDT Ashley López, RNR Pupil TwpjxUndln79/07/2025 12:33 PM Rayna Alfred, RNL Pupil DgtswYqqav12/07/2025 12:33 PM Rayna Alfred, RNNeuro Symptoms None03/21/2025 8:00 PM Ashley Goldstein, RNPupil VewrjpapyvHhn77/07/2025 12:33 PM Rayna Alfred RNHand Grasp/Motor Function/Sensation Assessment Grasp;Dorsiflexion;Plantar tmtugje1903/21/2025 8:00 PM Ashley Goldstein RN Facial DmoxzghtTxtjhkfmhew99/07/2025 12:33 PM Rayna Alfred RN * QuestionAnswerDate of AssessmentAuthorBilateral Breath SoundsClear;Diminished 03/21/2025 8:00 PM Ashley Goldstein RNRespiratory BnulsmySvbqzi50/07/2025 8:00 PM Ashley Goldstein RNChest XwoxyghzqzEbnjxfzkong82/07/2025 8:00 PM Ashley Goldstein RNCoughNone1 8:00 AM Denny Oconnor RNSputum PzsmusEvuij19/07/2025 8:00 PM Ashley Goldstein RNRespiratory Effort Nqqgvflpm88/07/2025 8:00 PM Ashley Goldstein RNRespiratory Depth/Rhythm Fibvtza0203/21/2025 8:00 PM Ashley Goldstein RN * QuestionAnswerDate of AssessmentAuthorEctopyPremature ventricular contractions 03/22/2025 8:00 AM Denny Oconnor RNEctopy IfolxwjxwEelgfqncsw56/08/2025 8:00 AM Denny Oconnor RNCarmarisaac RtemctdquwFsndppf99/08/2025 8:00 AM Denny Alamo RNTelemetry Monitor EpfdzxBw28/08/2025 8:00 AM Denny Oconnor RNJugular Venous Distention (JVD)No03/22/2025 8:00 AM Denny Oconnor RNCardiac AewuxxwjFabo50/08/2025 8:00 AM Denny Oconnor RNHeart SoundsS1, S203/22/2025 8:00 AM Denny Oconnor RN * GastrointestinalQuestionAnswerDate of AssessmentAuthorAbdominal Tenderness Wbfxwvxbt14/07/2025 8:00 PM EDTShubert, Allyse, RNGastrointestinal (WDL)WDL 03/22/2025 8:00 AM Denny Oconnor, RNAbdomen InspectionSoft;Nondistended 03/21/2025 8:00 PM Ashley Goldstein RNBowel FrmfsmdgkwgzYd25/07/2025 8:00 PM Ashley Goldstein, RN * Peripheral VascularQuestionAnswerDate of AssessmentAuthorPeripheral Vascular (WDL)WDL1 8:00 AM Denny Oconnor RNCapillary RefillLess than/equal to 2 seconds (All extremities)03/22/2025 8:00 AM Denny Oconnor, RNPulsesRight posterior tibial;Left posterior tibial;Right pedal;Left pedal;Right radial;Left slkbuw3403/22/2025 8:00 AM Denny Oconnor RN NckmsztlZlyy08/08/2025 8:00 AM Denny Oconnor RN * RUE Neurovascular AssessmentQuestionAnswerDate of AssessmentAuthorRUE Capillary RefillLess than/equal to 2 acpoetx7203/22/2025 8:00 AM Denny Oconnor RNRUE ColorAppropriate for xaeyhzcql98/08/2025 8:00 AM Denny Oconnor RNRUE Temperature/MoistureWarm;Dry03/22/2025 8:00 AM Denny Oconnor RNRight Radial Pulse+ 8:00 AM Denny Oconnor RN * LUE Neurovascular AssessmentQuestionAnswerDate of AssessmentAuthorLeft Radial Pulse+ 8:00 AM Denny Oconnor RN * RLE Neurovascular AssessmentQuestionAnswerDate of AssessmentAuthorRight Posterior Tibial Pulse+ 8:00 AM Denny Oconnor RNRight Pedal Pulse+ 8:00 AM eDnny Oconnor RN * LLE Neurovascular AssessmentQuestionAnswerDate of AssessmentAuthorLeft Posterior Tibial Pulse+ 8:00 AM Denny Oconnor RNLetommie Pedal Pulse+ 8:00 AM Denny Oconnor RN * MusculoskeletalQuestionAnswerDate of AssessmentAuthorRUEFull movement 03/21/2025 8:00 PM Ashley Goldstein RNRLEFull jltxhdih18/07/2025 8:00 PM Ashley Goldstein RNLUEFull umuoqxnl15/07/2025 8:00 PM Ashley Goldstein, RNLLEFull efoprsdi17/07/2025 8:00 PM Ashley Goldstein RNMusculoskeletal (WDL)WDL1 8:00 AM Denny Oconnor RN * PsychosocialQuestionAnswerDate of AssessmentAuthorPsychosocial (WDL)WDL 03/22/2025 8:00 AM Denny Oconnor RN * Gladis Fall RiskQuestionAnswerDate of AssessmentAuthorHistory of Falling, Immediate or Within 3 Brkioq976 8:00 AM Denny Oconnor RN Secondary Zsrmwwfmd2553/08/2025 8:00 AM Denny Oconnor, RNAmbulatory Aid0 03/22/2025 8:00 AM Denny Oconnor RNIntravenous Therapy/Heparin Lock20 03/22/2025 8:00 AM Denny Oconnor RNGait/Moddpgbsnwjh774/08/2025 8:00 AM Denny Oconnor RNMental Jetjet468/08/2025 8:00 AM Denny Oconnor RN Morse Fall Risk Zlxfu043603/22/2025 8:00 AM Denny Oconnor RN * Amari ScaleQuestionAnswerDate of AssessmentAuthorBraden No Risk Interventions Continue to assess patient according to level of care03/22/2025 8:00 AM Denny Alamo, RNSensory Kxqfdukqzza792/08/2025 8:00 AM Denny Oconnor, BJOlvfeubs978/08/2025 8:00 AM Denny Oconnor TXFhbpyabr693/08/2025 8:00 AM Denny Oconnor RNMobility41 8:00 AM Denny Oconnor RN Dsbvnviak644/08/2025 8:00 AM Denny Oconnor, RNFriction and Shear3 03/22/2025 8:00 AM Denny Oconnor RNBraden Scale Ucodi4007/08/2025 8:00 AM Denny Oconnor RN * LUE Motor ResponseAnswerDate of AssessmentAuthorResponds to iimfzwvu52/07/2025 12:33 PM Rayna Alfred RN * LLE Motor ResponseAnswerDate of AssessmentAuthorResponds to iuqpvssb07/07/2025 12:33 PM Rayna Alfred RN * RUE Motor ResponseAnswerDate of AssessmentAuthorResponds to yvcaspae81/08/2025 4:00 AM Ashley Goldstein RN * RUE SensationAnswerDate of AssessmentAuthorFull ibulzzsyh13/08/2025 4:00 AM Ashley Goldstein RN * RLE Motor ResponseAnswerDate of AssessmentAuthorResponds to gavpmeis95/07/2025 12:33 PM Rayna Alfred RN * Charting TypeQuestionAnswerDate of AssessmentAuthorCharting TypeShift onrihpzdpw49/08/2025 8:00 AM Denny Oconnor RN * Values/BeliefsQuestionAnswerDate of AssessmentAuthorCultural Requests During Xwrmsvvwfalooyechtq50/07/2025 1:52 AM Luz Richter RNSpiritual Requests During Lmyjwjmhmxllmfbppfj70/07/2025 1:52 AM Luz Richter RN * GenitourinaryQuestionAnswerDate of AssessmentAuthorGenitourinary (WDL)WDL 03/22/2025 8:00 AM Denny Oconnor RNUrinary XnssstlivqtnLf53/07/2025 8:00 PM Ashley Goldstein RN * Patient MonitoringQuestionAnswerDate of AssessmentAuthorFrequency of Checks Twice per hour, snmupukx61/08/2025 8:00 AM Denny Oconnor RN * Safe EnvironmentQuestionAnswerDate of AssessmentAuthorArm Bands OnID;Allergies 03/22/2025 8:00 AM Denny Oconnor RNSide Rails/Bed Safety2/410 8:00 AM Denny Oconnor, RNBed SyzpuyDdd05/08/2025 8:00 AM Denny Oconnor RNThe Patient's Environment is RaupTxb76/08/2025 8:00 AM Denny Oconnor, RN * MobilityQuestionAnswerDate of AgtdkysmvcHzkodcLwrjxqcsun19/08/2025 9:00 AM EDT Colin Luna, PCTActivity PerformedMobilizes independently 03/22/2025 9:00 AM Colin Drake, PCTAmbulation Response Tolerated well03/22/2025 9:00 AM Colin Drake, PCT RepositionedTurns self03/22/2025 9:00 AM Colin Drake, PCT Level of SpuhhkheqeZvtmyfmzcwk74/08/2025 9:00 AM Colin Drake, PCTHead of Bed ElevatedSelf qcsnnqath05/08/2025 9:00 AM Colin Mccracken, PCTHeels/FeetFoot of bed khemvqsj17/07/2025 8:00 PM EDT Ashley López, RNRange of MotionActive;All vgqzubdoyez17/08/2025 9:00 AM EDT Colin Luna, PCTAnti-Embolism DevicesBilateral;Sequential compression devices, below knee03/22/2025 8:00 AM Denny Oconnor, RNAnti- Embolism AtwpcaqrkosuZaf89/08/2025 8:00 AM Dneny Oconnor, RNPositioning FrequencyAble to turn self03/22/2025 9:00 AM Colin Drake, PCT * HygieneQuestionAnswerDate of AssessmentAuthorSkin CarePer self03/22/2025 8:00 AM Colin Drake, PCTHygieneBathed;Per self03/22/2025 8:00 AM Colin Drake, PCTOral CarePer self03/22/2025 8:00 AM EDT Colin Luna, PCTLevel of OrzddxhzztOhwflbkufae72/08/2025 8:00 AM Colin Drake PCTIs Patient Total Care?No03/22/2025 8:00 AM Colin Drake, PCTIncontinence Protective DevicesNone 03/22/2025 8:00 AM Colin Drake, PCTCHG (Chlorhexidine Gluconate) NbqsjekHfip53/08/2025 8:00 AM Colin Drake, PCT * PrecautionsQuestionAnswerDate of KzinhebrqfHmxzyfHcfdlwjblxiZeob11/08/2025 8:00 AM Denny Oconnor RN * ADL ScreeningQuestionAnswerDate of AssessmentAuthorDo you snore or wake up gasping for air?No03/21/2025 1:50 AM Luz Richter RNCan you bring in your CPAP/BiPAP from home?N/A1 1:50 AM Luz Richter RNPatient's Vision Adequate to Safely Complete Daily OcetusprwmLmg96/07/2025 1:50 AM Luz Benavidse RNPatient's Judgment Adequate to Safely Complete Daily TqtcsmltcmAnq64/07/2025 1:50 AM Luz Richter RNPatient's Memory Adequate to Safely Complete Daily YmpypiycusIsp35/07/2025 1:50 AM Luz Richter RN Patient Able to Express Needs/WwdwhjnVkk63/07/2025 1:50 AM Luz Richter UTSvwpljuoVmahtsigvnh96/07/2025 1:50 AM Luz Richter RNGrooming Snjkmpczswl66/07/2025 1:50 AM Luz Richter RNFeedingIndependent 03/21/2025 1:50 AM Luz Richter ZBEurvticOgtrfurjjvl77/07/2025 1:50 AM EDTZilke, Luz, WHJgugkvjecFykyvgsckng84/07/2025 1:50 AM Luz Richter RNIn/Out JzxSvrknythhqu10/07/2025 1:50 AM Luz Richter RNWalks in Home Mdipigcjass96/07/2025 1:50 AM Luz Richter RNWeakness of LegsBoth 03/21/2025 1:50 AM Luz Richter RNWeakness of Arms/LhjmeBzsc82/07/2025 1:50 AM Luz Richter RNHearing - Right EarDifficulty with noise 03/21/2025 1:50 AM Luz Richter RNHearing - Left EarDifficulty with noise03/21/2025 1:50 AM Luz Richter RNWhich is your dominant hand? Either/hmxgykbvwqlc23/07/2025 1:50 AM Luz Richter RN * ConsultsQuestionAnswerDate of AssessmentAuthorSpiritual Care Consult NeededNo 03/21/2025 1:52 AM Luz Richter RNSocial Services Consult NeededNo 03/21/2025 1:52 AM Luz Richter RN * Therapy ConsultsQuestionAnswerDate of AssessmentAuthorPT Evaluation Needed2 03/21/2025 1:50 AM Luz Richter RNOT Evaluation Xmkoci786/07/2025 1:50 AM Luz Richter RNSLP Evaluation Yqfwnp427 1:50 AM Luz Richter RN * Assistive DevicesQuestionAnswerDate of AssessmentAuthorAssistive Devices Rswrzbolzc54/07/2025 1:50 AM Luz Richter RN * Suicidal IdeationQuestionAnswerDate of AssessmentAuthor1. Wish to be (Lifetime)No03/21/2025 1:53 AM Luz Richter RN2. Non-Specific Active Suicidal Thoughts (Lifetime)No03/21/2025 1:53 AM Luz Richter RN * July Coma ScaleQuestionAnswerDate of AssessmentAuthorBest Eye Response Sbxjxsurjuv68/08/2025 8:00 AM Denny Oconnor RNBe Verbal Response Igivslzp25/08/2025 8:00 AM Denny Oconnor RNBe Motor ResponseFollows pnauzzwt21/08/2025 8:00 AM Denny Oconnor RN * July Coma Scale ScoreAnswerDate of NrlakxosndVocyqd1599/08/2025 8:00 AM Denny Alamo RN * Pain AssessmentQuestionAnswerDate of AssessmentAuthorPain Interventions Kmyzsunh92/08/2025 8:00 AM Denny Oconnor RNPatient's Stated Pain GoalNo pain03/22/2025 8:00 AM Denny Oconnor RNPain AssessmentNo/denies pain 03/22/2025 8:00 AM Denny Oconnor RN * NutritionQuestionAnswerDate of AssessmentAuthorDiet TypeHeart healthy 03/21/2025 8:00 PM Ashley Goldstein RNFeedingAble to feed self03/21/2025 8:00 PM Ashley Goldstein RN * Peripheral Vascular Additional AssessmentsAnswerDate of AssessmentAuthorRight upper ojutuwghy09/08/2025 4:00 AM Ashley Goldstein RN * IntegumentaryQuestionAnswerDate of AssessmentAuthorSkin ColorAppropriate for race03/22/2025 8:00 AM Denny Oconnor RNSkin Condition/TempWarm;Dry 03/22/2025 8:00 AM Denny Oconnor RNSkin IntegrityOther (Comment) 03/22/2025 8:00 AM Denny Oconnor RNSkin TurgorEpidermis thin with loss of subcutaneous ifmzqh1003/22/2025 8:00 AM Denny Oconnor RNIntegumentary (WDL)X1 8:00 AM Denny Oconnor RN * Audit Alcohol ScreeningQuestionAnswerDate of AssessmentAuthorHow often do you have a drink containing alcohol? 1:52 AM Luz Richter RNHow many standard drinks containing alcohol do you have on a typical day?No 03/21/2025 1:52 AM Luz Richter RNHow often do you have six or more drinks on one occasion? 1:52 AM Luz Richter RNAudit-C Score0 03/21/2025 1:52 AM Luz Richter RN * QuestionAnswerDate of AssessmentAuthorPatient Goal for TreatmentDischarge 03/22/2025 8:00 AM Denny Oconnor RN * Drug ScreeningQuestionAnswerDate of AssessmentAuthorHave you used any substances (canabis, cocaine, heroin, hallucinogens, inhalants, etc.) in the past12 months?No03/21/2025 1:52 AM Luz Richter RNHave you used any prescription drugs other than prescribed in the past 12 months?No03/21/2025 1:52 AM Luz Richter RN * Modified AldreteQuestionAnswerDate of KxuvwwdietBxdfliZaormuko316/07/2025 12:00 PM Chandrika Crews RNRespiration21 12:00 PM Chandrika Crews RNCirculation21 12:00 PM Chandrika Crews RNConsciousness21 12:00 PM Chandrika Crews RNOxygen Aybhsrqzhh045/07/2025 12:00 PM Chandrika Crews RNModified Mikel Mqywc9538/07/2025 12:00 PM Chandrika Crews RN * Modified Malnutrition Screening Tool (MST)QuestionAnswerDate of Assessment AuthorHave you recently lost weight without trying? 1:53 AM Luz Benavides RNHave you been eating poorly because of a decreased appetite? 1:53 AM Luz Richter RNOn home tube feeding or TPN?0 03/21/2025 1:53 AM Luz Richter RNDoes patient have a stage 2-4 pressure ulcer? 1:53 AM Luz Richter RN * Weight Loss ScoreAnswerDate of JzrkldcnycZgvamm785/07/2025 1:53 AM Luz Richter RN * Malnutrition ScoreAnswerDate of YifgnehaqqRhbnly627/07/2025 1:53 AM Luz Richter RN documented as of this encounter Mental Status * [place] Coma ScaleQuestionAnswerEntry DateAuthorBest Eye ResponseSpontaneous 03/22/2025 8:00 AM Denny Oconnor RNBe Verbal ResponseOriented 03/22/2025 8:00 AM Denny Oconnor RNBe Motor ResponseFollows commands 03/22/2025 8:00 AM Denny Oconnor RN * July Coma Scale ScoreAnswerEntry EkrbTnkway2023/08/2025 8:00 AM Denny Oconnor RN * QuestionAnswerEntry DateAuthorRichmond Agitation Sedation Scale (RASS)0 03/22/2025 8:00 AM Denny Oconnor RN * Modified AldreteQuestionAnswerEntry XgwnWewrxfHdnykgwy293/07/2025 12:00 PM Chandrika Arndt RNRespiration21 12:00 PM Chandrika Crews RN Ldzhcmikdfr522/07/2025 12:00 PM Chandrika Crews RNConsciousness21 12:00 PM Chandrika Crews RNOxygen Adqoqdykvo998/07/2025 12:00 PM Chandrika Crews RNModified Mikel Bihnh2282/07/2025 12:00 PM Chandrika Crews RN documented in this encounter Discharge Summaries * Sukhjinder Schmitz MD - 03/22/2025 9:40 AM EDT Images from the original note were not included. Hospital Medicine Discharge Summary Admission Date: 03/21/2025 1:32 AM Total duration of encounter: 1 day Final Discharge Diagnosis: # Elevated troponin # Chronic systolic CHF 20% # NSVT # CKD 3a, stable # HTN # Adrenal adenoma, left Admission Diagnosis: Elevated troponin [R79.89] Hospital course: Surgical, Invasive or Diagnostic Procedures Done During Admission: Cardiac Cath Consultations During Admission: Cardiology 74 y.o. male who came from home with past medical history CKD 3a, DM2, hypertension, hyperlipidemia, neuroendocrine carcinoma, left adrenal mass, atrial tachycardia presents to [facility] as a direct admission with fluid overload and elevated troponin. Patient reports that on Thursday night he was about to go to bed when he began to feel midsternal chest pressure associatedwith shortness of breath and diaphoresis. States that this prompted him to call 911 and he was brought to the emergency department. States that after he arrived he was found to have an elevated troponin of 85 with a repeat of 112. X-ray as well as CT was completed showing pulmonary vascular congestion. He was given a dose of IV Lasix as well as a dose of Plavix and a part of therapeutic Lovenox. He was initially admitted to [facility] but it was decided to transfer for possible cardiac cath. Upon arrival, repeat labs were completed showing troponin 43, BNP 460, BUN 31, creatinine 1.33. # Elevated troponin: # Chronic systolic CHF 20%: # NSVT: - Cath showed mild non-obstructive CAD. - Continue aspirin, bisoprolol, Crestor, Jardiance, losartan, Lasix. Discharged on spironolactone. - Discharged on event monitor. - Follow up with Cardiology. # CKD 3a, stable. # HTN - Continue losartan. # Adrenal adenoma, left - Continue outpatient follow-up. Dear MD Alonzo, Brent is advised to follow up with you within 1-2 weeks. Items to follow up in ambulatory setting: None Follow-up with: Cardiology Scheduled appointments: Future Appointments Date Time Provider Department Center 03/28/2025 1:20 PM Kanika Sanchez CNP [facility] Your medication list START taking these medications Instructions Last Dose Given Next Dose Due aspirin 81 mg chewable tablet Chew 1 tablet (81 mg) with breakfast for 90 doses. spironolactone 25 mg tablet Commonly known as: Aldactone Take 1 tablet (25 mg) by mouth in the morning. CHANGE how you take these medications Instructions Last Dose Given Next Dose Due rosuvastatin 20 mg tablet Commonly known as: Crestor What changed: Another medication with the same name was removed. Continue taking this medication, and follow the directions you see here. TAKE 1 TABLET IN THE MORNING CONTINUE taking these medications Instructions Last Dose Given Next Dose Due allopurinol 300 mg tablet Commonly known as: Zyloprim bisoprolol 5 mg tablet Commonly known as: Zebeta TAKE 1 TABLET IN THE MORNING AND AT BEDTIME furosemide 20 mg tablet Commonly known as: Lasix glimepiride 4 mg tablet Commonly known as: Amaryl Jardiance 25 mg Generic drug: empagliflozin losartan 100 mg tablet Commonly known as: Cozaar omeprazole [address] capsule Commonly known as: PriLOSEC tamsulosin 0.4 mg 24 hr capsule Commonly known as: Flomax STOP taking these medications amLODIPine 10 mg tablet Commonly known as: Norvasc fluticasone 50 mcg/actuation nasal spray Commonly known as: Flonase hydrALAZINE 50 mg tablet Commonly known as: Apresoline Where to Get Your Medications These medications were sent to [facility]/pharmacy #[id number] [address] aspirin 81 mg chewable tablet spironolactone 25 mg tablet Brent is allergic to azithromycin, ciprofloxacin, and lisinopril. Disposition: Home or Self Care () Discharge Condition: Stable Code Status: Full Code Diagnostic Results Hematology: Results from last 7 days Lab Units 03/22/2542503/21/2534403/21/259 WBC AUTO 10*3/uL 9.48 9.59 11.08* HEMOGLOBIN g/dL 13.9 14.4 14.9 HEMATOCRIT % 42.8 45.0 45.8 MCV fL 88.2 89.6 88.1 PLATELETS AUTO 10*3/uL 363 369 425* INR -- -- 1.02 Chemistry: Results from last 7 days Lab Units 03/22/2542503/21/2534403/21/25 0209 SODIUM mmol/L 136 137 136 POTASSIUM mmol/L 4.2 4.0 4.2 CHLORIDE mmol/L 106 105 103 CO2 mmol/L 23 21 25 BUN mg/dL 30* 31* 31* CREATININE mg/dL 1.34* 1.23 1.33* GLUCOSE mg/dL 113* 112* 122* MAGNESIUM mg/dL 2.0 -- 2.1 CALCIUM mg/dL 9.1 9.1 9.4 PHOSPHORUS mg/dL 3.7 -- 3.6 Results from last 7 days Lab Units 03/21/25 0209 AST U/L 13 ALT U/L 9 ALK PHOS U/L 101 BILIRUBIN TOTAL mg/dL 0.6 Test Results Pending At Discharge: Diet at the time of discharge: cardiac diet Nutrition Screen Activity: Patient currently has no discharge activity orders Objective Blood pressure 138/54, pulse 74, temperature 36.5 ??C (97.7 ??F), temperature source Temporal, resp. rate 16, height 1.778 m (5' 10 ), weight 103 kg (226 lb 6.4 oz), SpO2 94%. General: Alert and oriented x3. Cardiology: Normal rate, regular rhythm. Lungs: Clear to auscultation, no wheezes, rales or rhonchi, symmetric air entry. Abdomen: Soft, non tender, non distended. Total time for discharge - review of data, exam, discussion with providers and care-team, med-rec and orders, arranging follow up, counseling of patient and/or family and documentation was 30 minutes. Signed Sukhjinder Schmitz MD [facility] 03/22/2025 9:40 AM CC: MD Alonzo documented in this encounter Discharge Instructions * Discharge Instr - AVS First Page* Luanne Simmons RN - 03/22/2025 12:41 PM EDT -Please notify physician or advanced practice provider with any questions or concerns regarding your medical condition(s). -If you need immediate medical attention, please dial 9-1-1 or go to your closest emergency department. * Discharge Instr - Activity* Luanne Simmons RN - 03/21/2025 3:33 PM EDT Activity as tolerated Ambulate with assistance Fall risk precautions * Discharge Instr - Diet* Luanne Simmons RN - 03/21/2025 3:34 PM EDT Heart Healthy/HTN, CABG,Stroke, (2 grams of sodium per day, low fat, low cholesterol) Diabetic male diet (60 grams of carbohydrates per meal) Check blood sugars 4 times daily ( Before meals & Before bedtime) * Discharge Instr - Other Orders* Luanne Simmons RN - 03/21/2025 3:35 PM EDT 03/21/[address] Subramanian Follow Post cath instructions: No lifting greater than 5 pounds for 72 hours after procedure You may resume your normal activities gradually over the next week, or as instructed Keep arm elevated on pillow overnight with brachial and radial cath sites. Keep puncture site dry for 24 hours; may shower 24 hours after procedure Remove band aid dressing from site the morning after the procedure Do not sit in bath water, Jacuzzi or pool/pond/alvares for one week Notify physician if you develop: IF BLEEDING APPLY FIRM PRESSURE TO THE SITE If bleeding heavily report to the emergency room Severe pain to cath site Hard, painful, swelling larger than a quarter at puncture site Numbness and or tingling Fever greater than 101 degrees Redness, warmth, drainage at puncture site *Continue heart healthy diet and low sodium diet. *Monitor daily weights, fluid restriction 1.5-2Liters/day *Call office for weight gain of 2 pounds in 1 day or 5 pounds in 1 week, increased leg swelling, shortness of breath or shortness of breath at night and having to sleep sitting up taller/more pillowsthan normal or in recliner. [phone]. Cardiac Event Monitor 30 day cardiac event monitor recommended by cardiology. Please call prior to leaving the hospital to have the event monitor placed. Wear as prescribed and follow up with cardiology at [facility] . documented in this encounter Medications at Time of Discharge MedicationSigDispense QuantityRefillsLast FilledStart DateEnd Date allopurinol (Zyloprim) 300 mg tablet Take 300 mg by mouth in the morning. bisoprolol (Zebeta) 5 mg tablet Indications:PalpitationsTAKE 1 TABLET IN THE MORNING AND AT BEDTIME 180 tablet empagliflozin (Jardiance) 25 mg Take 25 mg by mouth in the morning. furosemide (Lasix) 20 mg tablet Take 20 mg by mouth in the morning. glimepiride (Amaryl) 4 mg tablet Take 4 mg by mouth before breakfast. omeprazole (PriLOSEC) [address] capsule Take 40 mg by mouth before breakfast.04/12/2024 rosuvastatin (Crestor) 20 mg tablet Indications:Mixed hyperlipidemiaTAKE 1 TABLET IN THE MORNING 90 tablet tamsulosin (Flomax) 0.4 mg 24 hr capsule Take 1 capsule by mouth in the evening.07/31/2023 aspirin 81 mg chewable tablet Indications:Elevated troponinChew 1 tablet (81 mg) with breakfast for 90 doses. 90 tablet spironolactone (Aldactone) 25 mg tablet Indications:Elevated troponinTake 1 tablet (25 mg) by mouth in the morning. 30 tablet losartan (Cozaar) 100 mg tablet Take 100 mg by mouth in the morning.03/28/2025documented as of this encounter Progress Notes * Simba Steen MD - 03/22/2025 7:53 AM EDT Images from the original note were not included. Cardiology Progress Note Subjective 03/22/2025: The patient was seen and examined at bedside this morning. He was afebrile and hemodynamically stable, satting well on room air. Creatinine 1.34 (1.23), HDL 21, LDL 42, labs otherwise unremarkable. No acute events reported overnight. Patient denies chest pain or dyspnea. Subjective: Brent Car is a 74 y.o. male with a past medical history of atrial tachycardia on bisoprolol,and orthostatic hypotension who presented to outside hospital with complaints of chest pressure. Patient states that he was getting ready for bed and laid down when he felt substernal chest pressure with no radiation that lasted for a few minutes. He states that the pain resolved without any intervention. Patient states that he has a history of GERD but the pain was different from his reflux symptoms. Of note, patient underwent coronary angiography in June 2023 which showed nonobstructive coronary artery disease and normal pressures. Patient was transferred over to [facility] for possible cardiac catheterization. On presentation to the hospital, troponins have been flat at 43. EKG done showed left bundle branchblock with premature ventricular complexes. Echocardiogram was ordered. Objective Current Medications[1] Objective: Patient Vitals for the past 24 hrs: BP Temp Temp src Pulse Resp SpO2 Weight 03/22/25 0400 126/61 -- -- -- -- 90 % -- 03/22/25 0138 -- -- -- -- -- -- 103 kg (226 lb 6.4 oz) 03/22/25 0000 120/51 36.4 ??C (97.5 ??F) Temporal 70 -- (!) 89 % -- 03/21/251999 127/75 36.2 ??C (97.2 ??F) Temporal 72 -- 95 % -- 03/21/25 1900 117/63 36.1 ??C (97 ??F) 75 17 95 % -- 03/21/25 1800 134/60 36.1 ??C (96.9 ??F) 77 17 97 % -- 03/21/25 1700 156/62 36.4 ??C (97.5 ??F) Temporal 75 17 96 % -- 03/21/25 1601 122/59 36.1 ??C (96.9 ??F) Temporal 75 17 96 % -- 03/21/25 1500 (!) 106/47 -- -- 66 -- 93 % -- 03/21/25 1430 115/66 36.1 ??C (97 ??F) Temporal 68 17 95 % -- 03/21/25 1400 125/71 36 ??C (96.8 ??F) Temporal 71 16 96 % -- 03/21/25 1345 109/70 35.8 ??C (96.4 ??F) Temporal 82 16 95 % -- 03/21/25 1330 148/66 35.8 ??C (96.4 ??F) Temporal 69 16 96 % -- 03/21/25 1315 136/69 36 ??C (96.8 ??F) Temporal 70 16 98 % -- 03/21/25 1300 129/73 35.9 ??C (96.6 ??F) Temporal 72 16 96 % -- 03/21/25 1245 134/74 35.8 ??C (96.4 ??F) Temporal 71 17 94 % -- 03/21/25 1233 131/64 35.7 ??C (96.3 ??F) Temporal 72 20 95 % -- 03/21/25 1200 121/67 -- -- 70 13 95 % -- 03/21/25 1145 120/70 -- -- 72 21 93 % -- 03/21/25 1143 127/70 -- -- 74 17 93 % -- 03/21/25 1129 122/74 -- -- 68 15 96 % -- 03/21/25 1043 -- -- -- -- -- 98 % -- 03/21/25 1042 156/85 -- -- 78 20 98 % -- Physical Examination: Physical Exam Constitutional: Appearance: He is obese. Eyes: Pupils: Pupils are equal, round, and reactive to light. Cardiovascular: Rate and Rhythm: Normal rate and regular rhythm. Pulmonary: Effort: Pulmonary effort is normal. Abdominal: General: Abdomen is flat. Musculoskeletal: Cervical back: Normal range of motion. Skin: General: Skin is warm. Capillary Refill: Capillary refill takes less than 2 seconds. Neurological: General: No focal deficit present. Mental Status: He is alert and oriented to person, place, and time. Relevant Lab Results Encounter Date: 03/21/25 ECG 12 lead Result Value Ventricular Rate 74 Atrial Rate 74 WA Interval 192 QRS DURATION 160 QT Interval 498 QTC CALCULATION(BAZETT) 552 P [place] 52 R-[place] 133 T Wave [place] -12 Impression Sinus rhythm with occasional Premature ventricular complexes Left bundle branch block Abnormal ECG When compared with ECG of 27-JUL-2023 07:48, Premature ventricular complexes are now Present Left bundle branch block is now Present No results found for: CKTOTAL , CKMB , CKMBINDEX , TROPONINI Complete Echo (TTE) w/wo Imaging Agent, Strain, 3D, Bubble Study Result Date: 03/21/2025 1 1 [facility] Heart Station [address] [place] [address] [phone] (fax) Echocardiogram-[facility] Name: BRENT CAR Study Date: 03/21/2025 08:32 AM B/P: 121 mmHg/55 mmHg HR: 75 bpm Date of : 1950 Location: [facility] Height: 70 in. Age: 74 year(s) Patient Room: 3129 Weight: 228 lb. Gender: Male Patient Status: InPt BSA: 2.21 m2 Indication: Increased troponin, Hypertension, hyperlipidemia Examination: Echocardiogram (Complete), Lumason Contrast Image Quality: Poor sound transmission in apical views Patient Consent: Procedure explained to patient Exam Details Contrast: I.V. dose of Lumason Conclusions Left Ventricle: The left ventricle is moderately enlarged. Global left ventricular systolic function is severely reduced. The calculated Biplane EF is 28 %. The EF is 20 % visually. Left ventricular wall thickness is mildly increased. Regional wall motion abnormalities (see diagram). Grade 1, mild diastolic dysfunction (abnormal relaxation). Right Ventricle: The right ventricle is normal in size. Normal right ventricular systolic function. Unable to assess right sided pressures due to lack of measurable tricuspid regurgitation. Left Atrium: The left atrium is mildly enlarged. Aortic Valve: Trivial aortic valve regurgitation. Aorta: The aortic root exhibits mild dilatation. Overall Conclusions: Due to suboptimal imaging Lumason contrast was administered for opacification and better delineation of endocardial borders. No significant valvular abnormalities Measurements Left Ventricle Label Value Normal Value LVOTd 2.4 cm (19cm - 21cm) LVOT VTI 13.3 cm (18cm - 22cm) LVOT PGmax 3 mmHg LVEF visual 20 % LVDd, 2D 6.72 cm (4.2cm - 5.9cm) LVDs, 2D 5.78 cm (2.1cm - 4cm) IVSd, 2D 1.23 cm (0.6cm - 1.1cm) LVPWd, 2D 1.19 cm (0.6cm - 1cm) LVEF, BP 28 % (55% - 65%) LV Mass, 2D ASE 383.39 g LV Mass Index, 2D ASE 173.5 g/m?? (50g/m?? - 102.4g/m??) RWT, MM 0.35 (0 - 0.42) LVSVI, 2D 30.8 ml/m2 LVOT PGmean1 mmHg LVSV_LVOT 60 ml Right Ventricle Label Value Normal Value RVDd, 2D 4.01 cm (1.9cm - 3.8cm) TAPSE 1.9 cm Left Atrium Label Value Normal Value LA Volume, BP 83 ml (18ml - 58ml) LADs, 2D 3 cm (3cm- 4cm) LAESV index, BP 37.6 ml/m?? Right Atrium Label Value Normal Value RA Area 18.5 cm?? Aortic Valve Label Value Normal Value AV DVI 0.68 AV VTI 22.1 cm Mitral Valve Label Value Normal Value MV E Vmax 0.49 m/s MV A Vmax 1.02 m/s MV E/A 0.48 MV E/E' lateral 10.5 MV E' lateral 0.05 m/s Aorta LabelValue Normal Value AoRoot, 2D 4.1 cm (1.4cm - 3.8cm) Valvular Assessment LVOT 0.7 - 1.1 m/sec Aortic Valve 1.0 - 1.7 m/sec Mitral Valve 0.6 - 1.3 m/sec Tricuspid Valve 0.3 - 0.7 m/sec Pulmonic Valve 0.6 - 0.9 m/sec Regurgitation Trivial Trivial Trivial No Stenosis No No No No Max Velocity 0.79 m/sec 1.16 m/s 0.49 m/sec Max Gradient 5.00 mmHg Mean Gradient 3.00 mmHg Valve Area 3.1 cm?? Findings Left Ventricle: The left ventricle is moderately enlarged. Global left ventricular systolic function is severely reduced. The calculated Biplane EF is 28 %. The EF is 20 % visually. Left ventricular wall thickness is mildly increased. Regional wall motion abnormalities (see diagram). The basal anterior, basal inferoseptal, basal inferior, basal inferolateral, basal anterolateral, mid anterior, mid in feroseptal, mid inferior, mid inferolateral, mid anterolateral, apical anterior, apical inferior, apical lateral and apex left ventricular wall segments are hypokinetic. The basal anteroseptal, mid anteroseptal and apical septal left ventricular wall segments are akinetic. Grade 1, mild diastolic dysfunction (abnormal relaxation). Right Ventricle: The right ventricle is normal in size. Normal right ventricular systolic function. Unable to assess right sided pressures due to lack of measurable tricuspid regurgitation. Left Atrium: The left atrium is mildly enlarged. Right Atrium: The right atrium is mildly enlarged. Mitral Valve: There is nonspecific thickening of the mitral valve leaflet. Trivial mitral regurgitation. No mitral valve stenosis. Aortic Valve: Aortic valve is tri-leaflet. Trivial aortic valve regurgitation. No aortic valve stenosis. Aortic leaflets exhibit mild calcification. Tricuspid Valve: Normal tricuspid valve. Trivial tricuspid regurgitation. No tricuspid valve stenosis. Pulmonic Valve: Pulmonary valve appears normal. No pulmonary regurgitation. No pulmonic valvestenosis. Aorta: The aortic root exhibits mild dilatation. Great Vessels: IVC: Normal size and course of the IVC. Pericardium: No pericardial effusion. Procedure Staff Reading Group: [facility] Referring Physician: TOMEKA ROSADO [employer] Worker: MARK Castro Ordering Physician: SKYLAR MEJIA Wall Motion Scores -1 - hyperkinesia, 0 - not evaluated, 1 - normal, 2 - hypokinesia, 3 - akinesia, 4 - dyskinesia No nuclear medicine results found for the past 12 months Relevant Imaging Results Complete Echo (TTE) w/wo Imaging Agent, Strain, 3D, Bubble Study 1 1 [facility] Heart Station [address] [place] [address] [phone] (fax) Echocardiogram-[facility] Name: BRENT CAR Study Date: 03/21/2025 08:32 AM B/P: 121 mmHg/55 mmHg HR: 75 bpm Date of : 1950 Location: [facility] Height: 70 in. Age: 74 year(s) Patient Room: 3129 Weight: 228 lb. Gender: Male Patient Status: InPt BSA: 2.21 m2 Indication: Increased troponin, Hypertension, hyperlipidemia Examination: Echocardiogram (Complete), Lumason Contrast Image Quality: Poor sound transmission in apical views Patient Consent: Procedure explained to patient Exam Details Contrast: I.V. dose of Lumason Conclusions Left Ventricle: The left ventricle is moderately enlarged. Global left ventricular systolic function is severely reduced. The calculated Biplane EF is 28 %. The EF is 20 % visually. Left ventricular wall thickness is mildly increased. Regional wall motion abnormalities (see diagram). Grade 1, mild diastolic dysfunction (abnormal relaxation). Right Ventricle: The right ventricle is normal in size. Normal right ventricular systolic function. Unable to assess right sided pressures due to lack of measurable tricuspid regurgitation. Left Atrium: The left atrium is mildly enlarged. Aortic Valve: Trivial aortic valve regurgitation. Aorta: The aortic root exhibits mild dilatation. Overall Conclusions: Due to suboptimal imaging Lumason contrast was administered for opacification and better delineation of endocardial borders. No significant valvular abnormalities Measurements Left Ventricle Label Value Normal Value LVOTd 2.4 cm (19cm - 21cm) LVOT VTI 13.3 cm (18cm - 22cm) LVOT PGmax 3 mmHg LVEF visual 20 % LVDd, 2D 6.72 cm (4.2cm - 5.9cm) LVDs, 2D 5.78 cm (2.1cm - 4cm) IVSd, 2D 1.23 cm (0.6cm - 1.1cm) LVPWd, 2D 1.19 cm (0.6cm - 1cm) LVEF, BP 28 % (55% - 65%) LV Mass, 2D ASE 383.39 g LV Mass Index, 2D ASE 173.5 g/m?? (50g/m?? - 102.4g/m??) RWT, MM 0.35 (0 - 0.42) LVSVI, 2D 30.8 ml/m2 LVOT PGmean 1 mmHg LVSV_LVOT 60 ml Right Ventricle Label Value Normal Value RVDd, 2D 4.01 cm (1.9cm - 3.8cm) TAPSE 1.9 cm Left Atrium Label Value Normal Value LA Volume, BP 83 ml (18ml - 58ml) LADs, 2D 3 cm (3cm - 4cm) LAESV index, BP 37.6 ml/m?? Right Atrium Label Value Normal Value RA Area 18.5 cm?? Aortic Valve Label Value Normal Value AV DVI 0.68 AV VTI 22.1 cm Mitral Valve Label Value Normal Value MV E Vmax 0.49 m/s MV A Vmax 1.02 m/s MV E/A 0.48 MV E/E' lateral 10.5 MV E' lateral 0.05 m/s Aorta Label Value Normal Value AoRoot, 2D 4.1 cm (1.4cm - 3.8cm) Valvular Assessment LVOT 0.7 - 1.1 m/sec Aortic Valve 1.0 - 1.7 m/sec Mitral Valve 0.6 - 1.3 m/sec Tricuspid Valve 0.3 - 0.7 m/sec Pulmonic Valve 0.6 - 0.9 m/sec Regurgitation Trivial Trivial Trivial No Stenosis No No No No Max Velocity 0.79 m/sec 1.16 m/s 0.49 m/sec Max Gradient 5.00 mmHg Mean Gradient 3.00 mmHg Valve Area 3.1 cm?? Findings Left Ventricle: The left ventricle is moderately enlarged. Global left ventricular systolic function is severely reduced. The calculated Biplane EF is 28 %. The EF is 20 % visually. Left ventricular wall thickness is mildly increased. Regional wall motion abnormalities (see diagram). The basal anterior, basal inferoseptal, basal inferior, basal inferolateral, basal anterolateral, mid anterior, mid inferoseptal, mid inferior, mid inferolateral, mid anterolateral, apical anterior, apical inferior, apical lateral and apex left ventricular wall segments are hypokinetic. The basal anteroseptal, mid anteroseptal and apical septal left ventricular wall segments are akinetic. Grade 1, mild diastolic dysfunction (abnormal relaxation). Right Ventricle: The right ventricle is normal in size. Normal right ventricular systolic function. Unable to assess right sided pressures due to lack of measurable tricuspid regurgitation. Left Atrium: The left atrium is mildly enlarged. Right Atrium: The right atrium is mildly enlarged. Mitral Valve: There is nonspecific thickening of the mitral valve leaflet. Trivial mitral regurgitation. No mitral valve stenosis. Aortic Valve: Aortic valve is tri-leaflet. Trivial aortic valve regurgitation. No aortic valve stenosis. Aortic leaflets exhibit mild calcification. Tricuspid Valve: Normal tricuspid valve. Trivial tricuspid regurgitation. No tricuspid valve stenosis. Pulmonic Valve: Pulmonary valve appears normal. No pulmonary regurgitation. No pulmonic valve stenosis. Aorta: The aortic root exhibits mild dilatation. Great Vessels: IVC: Normal size and course of the IVC. Pericardium: No pericardial effusion. Procedure Staff Reading Group: [facility] Referring Physician: TOMEKA ROSADO [employer] Worker: MARK Castro Ordering Physician: SKYLAR MEJIA Wall Motion Scores -1 - hyperkinesia, 0 - not evaluated, 1 - normal, 2 - hypokinesia, 3 - akinesia, 4 - dyskinesia Cardiac catheterization PROCEDURE PHYSICIAN: Jai Subramanian MD . Indications: Brent Car is a 74 y.o. male who is admitted with chest pain, elevated troponin and LV dysfunction. He was referred for cardiac catheterization. Assistants: None. Procedure Performed: Bilateral selective coronary angiogram. Right heart catheterization. Access into the right internal jugular vein under ultrasound guidance. Methods: Procedure was explained to the patient with risks and benefits; he signed informed consent. he was brought to the chemical laboratory assistant in a fasting state. The right neck area was prepped and draped in usual fashion. Micropuncture technique was used for access under ultrasound guidance into the right internal jugular vein. A 6-Cuban x 11 cm sheath was placed. The right wrist area was prepped and draped in usual fashion. Micropuncture technique was used for access in the radial artery. A 6-Cuban x 11 cm sheath was placed. Verapamil was given through the sheath, and heparin was administered intravenously. A 5-Cuban Ponce catheter was used for right heart catheterization and measurement of pressures and calculation of cardiac output using the estimated Pretty method. Ponce catheter was removed. Bilateral selective coronary angiography was then performed using 6-Cuban JL3.5 diagnostic catheter for engagement of the left coronary artery and 6-Cuban JR5 diagnostic catheter for engagement of the right coronary artery. Catheters were removed. Hemostasis was achieved by TR band in the radial artery manual compression in the internal jugular vein. he tolerated the procedure well and was transferred back to the hospital room. Hemodynamic Data: RA: 5 RV: 28/5, 7 PA: 27/15 (20) PCWP: 8 CO: 5.62 CI: 2.55 O2 Sat: PA sat: 65%, AO sat: 90% AO: 128/67 (90) Coronary angiography: This is a right-dominant circulation. Left Main: This arises from the left coronary cusp. It bifurcates into left anterior descending and circumflex vessels. This has mild disease but no obstructive lesions. Left anterior descending: This has mild disease in the mid segment around the takeoff of a diagonal branch but no obstructive lesions. Circumflex: This is a non-dominant vessel. This has mild luminal irregularities but no obstructive lesions. Right coronary artery: This arises from the right coronary cusp. It is a dominant vessel. This has mild disease in the proximal segment but no obstructive lesions. Impression/Findings: Mild non-obstructive coronary artery disease. Normal left filling pressures. Normal right filling pressures. No pulmonary hypertension. Normal cardiac output and cardiac index. Plan: Medical therapy for coronary artery disease. Aspirin 81 mg daily for life. Statin therapy for life. Guideline directed medical therapy for heart failure. Further recommendations per inpatient Cardiology service. Follow up in Cardiology Clinic. Jai Subramanian MD XR chest 1 view Narrative: HISTORY: Fluid overload COMPARISON: None FINDINGS: AP upright view of the chest was performed. Cardiac silhouette is within normal limits. No airspace consolidation or vascular congestion. No pleural effusion or pneumothorax. Impression: * No acute abnormality. Electronically signed: Anthony Herman. ECG 12 lead Sinus rhythm with occasional Premature ventricular complexes Left bundle branch block Abnormal ECG When compared with ECG of 27-JUL-2023 07:48, Premature ventricular complexes are now Present Left bundle branch block is now Present ASSESSMENT NSTEMI, troponin of 112 Coronary Angiography showed mild non-obstructive CAD. RHC showed normal left/right filling pressures. Shortness of breath, likely secondary to acute heart failure, BNP 460 Echocardiogram 03/21 showed LVEF 20% History of atrial tachycardia on bisoprolol Orthostatic hypotension PLAN Echocardiogram 03/21 showed LVEF 20%. Optimize guideline directed medical therapy & Cardiac Medsfor HFrEF Aspirin 81 mg Aldactone 25 mg Crestor 20 mg Farxiga 10 mg SUPPLY CHAIN DESIGN MANAGER Bisoprolol 5 mg b.I.d. SUPPLY CHAIN DESIGN MANAGER Losartan 100 mg, will transition to Entresto as outpatient Monitor & Replace electrolytes per protocol, ensure K>4 & Mg>2 Remainder of care as per primary team and other consulting services Okay to discharge from cardiology standpoint, please reach out with any questions or concerns Will need follow-up with cardiology in 1 week This note was, at least in part, completed using a voice animal sticker system. Every effort was made to ensure accuracy. However, inadvertent computerized animal sticker errors may be present. Simba Steen MD PGY-2 Internal Medicine Cardiology Consult Service [facility] [1] Current Facility-Administered Medications: acetaminophen (Tylenol) tablet 650 mg, 650 mg, oral, q6h PRN, Skylar Mejia, MARINE DIESEL TECHNICIAN aspirin chewable tablet 81 mg, 81 mg, oral, Daily with breakfast, Ezekiel Clayton MD bisoprolol (Zebeta) tablet 5 mg, 5 mg, oral, BID, Skylar Mejia, MARINE DIESEL TECHNICIAN, 5 mg at 03/21/25 215 dapagliflozin propanediol (Farxiga) tablet 10 mg, 10 mg, oral, Daily, Ezekiel Clayton MD, 10 mg at 03/21/25 1300 glucose chewable tablet 24 g, 24 g, oral, q15 min PRN OR dextrose 50 % in water (D50W) syringe 25 g, 25 g, intravenous, q15 min PRN, Sukhjinder Schmitz MD insulin lispro (HumaLOG) injection 0-10 Units, 0-10 Units, subcutaneous, TID with meals, 2 Units at1 1730 AND insulin lispro (HumaLOG) injection 0-8 Units, 0-8 Units, subcutaneous, Nightly, Sukhjinder Schmitz MD losartan (Cozaar) tablet 100 mg, 100 mg, oral, Daily, Skylar Pirkl, MARINE DIESEL TECHNICIAN, 100 mg at 03/21/25 1300 melatonin tablet 5 mg, 5 mg, oral, Nightly PRN, Skylar Pirkl, MARINE DIESEL TECHNICIAN pantoprazole (ProtoNix) EC tablet 40 mg, 40 mg, oral, Daily, Skylar Pirkl, MARINE DIESEL TECHNICIAN, 40 mg at 03/22/25 0602 rosuvastatin (Crestor) tablet 20 mg, 20 mg, oral, q AM, Skylar Pirkl, MARINE DIESEL TECHNICIAN, 20 mg at 03/21/25 1300 spironolactone (Aldactone) tablet 25 mg, 25 mg, oral, Daily, Ezekiel Clayton MD, 25 mg at 03/21/25 1349 tamsulosin (Flomax) 24 hr capsule 0.4 mg, 0.4 mg, oral, q PM, Skylar Mejia, MARINE DIESEL TECHNICIAN, 0.4 mg at Cosigned by Zeus Schroeder MD at 03/24/2025 9:56 AM EDT Associated attestation - Zeus Schroeder MD - 03/24/2025 9:56 AM EDT By using the attestations below, the signing clinician agrees that I have read and verify that thedocumentation has been personally reviewed by me and ensure that the documentation accurately reflects the encounter. GC: I personally saw this patient on the day of the encounter, performed the nash portion(s) of the service and participated in the management and confirm the resident's documentation. Please note there may be an additional personal documentation from me. Additional Comments: agree Coronary angiogram reviewed, mild CAD noted, appropriate for medical therapy Echo reviewed, acute on chronic HFrEF noted EF 20% We have optimize GDMT for HFrEF Close outpatient follow-up with [facility] cardiology for HFrEF management Repeat echo in 1 to 3 months Check labs in 1 week Stable for discharge this time * Pelon Keller MD - 03/21/2025 6:04 AM EDT Case was discussed with the [facility] on 03/21/2025. I agree with the history, physical, assessment, and plan of care. I discussed the findings and therapeutic plan. I agree with the documentation, except for any updates below. Pelon Keller MD documented in this encounter H&P Notes * Sukhjinder Guevara MD - 03/21/2025 10:32 AM EDT H&P reviewed. The patient was examined and there are no changes to the H&P. Cosigned by Jai Subramanian MD at 03/21/2025 10:33 AM EDT Source Note - Skylar AlcarazGABINO moreira - 03/21/2025 2:58 AM EDT Images from the original note were not included. Hospital Medicine History and Physical 03/21/2025 3:05 AM THE HOSPITALIST TEAM PREFERS TO USE [employer] FOR NON-URGENT COMMUNICATION 7AM- 7PM. IF I DO NOT RESPOND WITHIN 20 MINUTES OR URGENT MATTERS, PLEASE CALL THROUGH THE RETREAD BUILDER. FROM 7PM-7AM, PLEASE PAGE [phone](COVR). Chief Complaint Direct admit from [place] for fluid overload and elevated trop History of Present Illness Brent Car is an 74 y.o. male who came from home with past medical history CKD 3a, DM2, hypertension, hyperlipidemia, neuroendocrine carcinoma, left adrenal mass, atrial tachycardia [facility] with fluid overload and elevated troponin. Patient reports that on Thursday night he was about to go to bed when he began to feel midsternal chest pressure associated with shortness of breath and diaphoresis. States that this prompted him to call 911 and he was brought to the emergency department. States that after he arrived he was found tohave an elevated troponin of 85 with a repeat of 112. X-ray as well as CT was completed showing pulmonary vascular congestion. He was given a dose of IV Lasix as well as a dose of Plavix and a part of therapeutic Lovenox. He was initially admitted to [facility] but it was decided to transferfor possible cardiac cath. Upon arrival, repeat labs were completed showing troponin 43, BNP 460, BUN 31, creatinine 1.33. Review of System and Physical Exam Temp: [36.1 ??C (97 ??F)] 36.1 ??C (97 ??F) Heart Rate: [73] 73 Resp: [20] 20 BP: (127)/(80) 127/80 Physical Exam Vitals reviewed. Constitutional: Appearance: He is normal weight. HENT: Head: Normocephalic. Mouth/Throat: Mouth: Mucous membranes are dry. Pharynx: Oropharynx is clear. Eyes: Conjunctiva/sclera: Conjunctivae normal. Cardiovascular: Rate and Rhythm: Normal rate and regular rhythm. Pulmonary: Effort: Pulmonary effort is normal. Abdominal: General: Abdomen is flat. Bowel sounds are normal. Musculoskeletal: General: Normal range of motion. Skin: General: Skin is warm and dry. Capillary Refill: Capillary refill takes less than 2 seconds. Neurological: General: No focal deficit present. Mental Status: He is alert and oriented to person, place, and time. Mental status is at baseline. Psychiatric: Mood and Affect: Mood normal. Review of Systems Constitutional: Positive for diaphoresis. Negative for appetite change, chills, fatigue and fever. HENT: Negative for congestion and dental problem. Respiratory: Positive for shortness of breath. Negative for chest tightness. Cardiovascular: Positive for chest pain. Negative for palpitations. Gastrointestinal: Negative for abdominal pain, nausea and vomiting. Genitourinary: Negative for difficulty urinating and dysuria. Musculoskeletal: Negative for arthralgias, back pain and gait problem. Skin: Negative for color change and pallor. Neurological: Negative for dizziness, speech difficulty, light-headedness, numbness and headaches. Psychiatric/Behavioral: Negative for agitation, behavioral problems, confusion, decreased concentration, dysphoric mood and hallucinations. The patient is not hyperactive. Assessment and Plan Assessment & Plan Elevated troponin -Troponin 85->112->43 -Concern for ACS -Will initiate IV heparin infusion -Patient was given Plavix as well as therapeutic Lovenox at outside hospital -N.p.o. for possible cardiac cath -Most recent cardiac cath completed on 07/27/2023 showing mild CAD -Cardiology consult Fluid overload - BNP elevated at 2610 at outside hospital -He was given 40 mg of IV Lasix with improvement in shortness of breath -Echocardiogram is pending -Strict intake and output CKD stage 3a, GFR 45-59 ml/min ([facility]) - Stable, at baseline Type 2 diabetes mellitus without complication, without long-term current use of insulin ([facility]) - ISS, ACHS Mixed hyperlipidemia - Continue rosuvastatin 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[facility]) - Stable continue monitoring Primary hypertension - Continue losartan Atrial tachycardia, paroxysmal - Continue beta-janet Adrenal adenoma, left -Continue outpatient follow-up with urology VTE Prophylaxis: IV heparin ----- Focus of this inpatient stay will remain on problems that need acute care setting for care. We will review available studies and will order additional labs, imaging and other studies as appropriate. As needed medicines are ordered as appropriate. VTE Prophylaxis will be ordered as appropriate. Please see above for management plan for individual hospital problems. Home medications are reviewed and will be continued as appropriate. Patient will be continued to be followed during this hospital stay by a member of [facility]. Past Medical History Medical History[1] Past Surgical History Surgical History[2] Social History Social History Socioeconomic History Marital status: Spouse name: Not on file Number of children: Not on file Years of education: Not on file Highest education level: Not on file Occupational History Not on file Tobacco Use Smoking status: Former Current packs/day: 0.00 Average packs/day: 1 pack/day for 15.9 years (15.9 ttl pk-yrs) Types: Cigarettes Start date: 10/14/1967 Quit date: 09/14/1983 Years since quittin.5 Smokeless tobacco: Never Substance and Sexual Activity Alcohol use: Not Currently Comment: I rarely drink. Drug use: Never Sexual activity: Not Currently Partners: Female control/protection: Condom Male Other Topics Concern Not on file Social History Narrative Not on file Social Drivers of Health Financial Resource Strain: Low Risk (03/21/2025) Overall Financial Resource Strain (CARDIA) Difficulty of Paying Living Expenses: Not hard at all Food Insecurity: No Food Insecurity (03/21/2025) Hunger Vital Sign Worried About Running Out of Food in the Last Year: Never true Ran Out of Food in the Last Year: Not on file Transportation Needs: No Transportation Needs (03/21/2025) Transportation Lack of Transportation (Medical): No Lack of Transportation (Non-Medical): Not on file Physical Activity: Insufficiently Active (07/06/2024) Received from [facility] Exercise Vital Sign Days of Exercise per Week: 2 days Minutes of Exercise per Session: 30 min Stress: No Stress Concern Present (07/06/2024) Received from [facility] [employer] [place] [employer] - Occupational Stress Questionnaire Feeling of Stress : Only a little Social Connections: Unknown (07/06/2024) Received from [facility] Social Connection and Isolation Panel [NHANES] Frequency of Communication with Friends and Family: More than three times a week Frequency of Social Gatherings with Friends and Family: Once a week Attends [employer] Services: Patient declined Active Member of Clubs or Organizations: No Attends Club or Organization Meetings: Never Marital Status: Intimate Partner Violence: Unknown (03/21/2025) Humiliation, Afraid, Rape, and Kick questionnaire Fear of Current or Ex-Partner: No Emotionally Abused: Not on file Physically Abused: Not on file Sexually Abused: Not on file Housing Stability: Low Risk (03/21/2025) Housing Stability Vital Sign Unable to Pay for Housing in the Last Year: No Number of Times Moved in the Last Year: 0 Homeless in the Last Year: No Family History family history includes Angina in his mother; Cancer in his brother, brother, father, mother, and sister; Diabetes type II in his brother, brother, father, and sister; Heart attack in his mother; Heart failure in his mother; Hypertension in his brother, father, and mother. Allergies is allergic to azithromycin, ciprofloxacin, and lisinopril. Prior to Admission Medications Prescriptions Prior to Admission[3] Labs Labs Reviewed COMPREHENSIVE METABOLIC PANEL - Abnormal Result Value Sodium 136 Potassium 4.2 Chloride 103 CO2 25 Anion Gap 12 BUN 31 (*) Creatinine 1.33 (*) BUN/Creatinine Ratio 23.3 Glucose 122 (*) Calcium 9.4 AST 13 ALT (SGPT) 9 Alkaline Phosphatase 101 Total Protein 7.0 Albumin 4.3 Total Bilirubin 0.6 eGFR 55.7 (*) HIGH SENSITIVITY TROPONIN I - Abnormal High Sensitivity Troponin I 43 (*) CBC WITH AUTO DIFFERENTIAL - Abnormal Auto WBC 11.08 (*) RBC 5.20 Hemoglobin 14.9 Hematocrit 45.8 MCV 88.1 MCH 28.7 MCHC 32.5 RDW 15.9 (*) Neutrophils % 72.8 (*) Lymphocytes % 16.7 (*) Monocytes % 8.6 Eosinophils % 1.1 Basophils % 0.4 Neutrophils Absolute 8.08 (*) Lymphocytes Absolute 1.85 Monocytes Absolute 0.95 Eosinophils Absolute 0.12 Basophils Absolute 0.04 Platelets 425 (*) nRBC % 0.0 Immature Granulocytes % 0.4 Immature Granulocytes Absolute 0.04 B-TYPE NATRIURETIC PEPTIDE - Abnormal BNP 460 (*) MAGNESIUM - Normal Magnesium 2.1 PHOSPHORUS - Normal Phosphorus 3.6 PROTIME-INR - Normal Protime 13.4 INR 1.02 CBC AND DIFFERENTIAL Narrative: The following orders were created for panel order CBC and differential. Procedure Abnormality Status --------- ------ CBC auto differential[[id number]] Abnormal Final result Please view results for these tests on the individual orders. APTT ANTI-XA (HEPARIN LEVEL) ANTI-XA (HEPARIN LEVEL) BASIC METABOLIC PANEL CBC HIGH SENSITIVITY TROPONIN I HIGH SENSITIVITY TROPONIN I Imaging Tilt table Narrative: A Tilt Table test was performed on 10/16/23 at [facility] METHOD: The test was explained to Brent Car, and the information sheet was signed. ECG monitoring was initiated and a blood pressure cuff was applied to the upper arm. An IV line was placed. AT BASELINE, Had a supine blood pressure of 167/88 MmHg, a heart rate of 69 and Normal Sinus rhythm. Symptoms at baseline: dizziness. THE PATIENT WAS TILTED to 70 degree [...] position changes which subsided with rest. FINAL Impression: Negative study for Syncope RECOMMENDED FOLLOW UP: Call [facility] to schedule and appointment [facility] 03/21/2025 3:05 AM [1] Past Medical History: Diagnosis Date Abnormal ECG Arrhythmia CKD (chronic kidney disease) stage 3, GFR 30-59 ml/min (CMS/HCC) Diabetes 1.5, managed as type 2 (CMS/HCC) HTN (hypertension) Hyperlipidemia NSVT (nonsustained ventricular tachycardia) ([facility]/HCC) Orthostatic hypotension Primary malignant neoplasm of duodenum (CMS/HCC) [2] Past Surgical History: Procedure Laterality Date CARDIAC CATHETERIZATION 07/27/2023 ESOPHAGOGASTRODUODENOSCOPY [3] Medications Prior to Admission Medication Sig Dispense Refill Last Dose/Taking allopurinol (Zyloprim) 300 mg tablet Take 300 mg by mouth in the morning. 03/20/2025 Morning amLODIPine (Norvasc) 10 mg tablet Take 5 mg by mouth if needed. Takes when BP is elevated (Patient not taking: Reported on 03/21/2025) Unknown bisoprolol (Zebeta) 5 mg tablet TAKE 1 TABLET IN THE MORNING AND AT BEDTIME 180 tablet 3 03/20/2025 Morning empagliflozin (Jardiance) 25 mg Take 25 mg by mouth in the morning. 03/20/2025 Morning fluticasone (Flonase) 50 mcg/actuation nasal spray Administer 2 sprays into each nostril in the morning. Shake gently. Before first use, prime pump. After use, clean tip and replace cap. (Patient nottaking: Reported on 03/21/2025) Unknown furosemide (Lasix) 20 mg tablet Take 20 mg by mouth in the morning. 03/20/2025 Morning glimepiride (Amaryl) 4 mg tablet Take 4 mg by mouth before breakfast. 03/20/2025 Morning hydrALAZINE (Apresoline) 50 mg tablet Take 1 tablet (50 mg) by mouth in the morning and at bedtime.(Patient not taking: Reported on 10/16/2023) 180 tablet 3 losartan (Cozaar) 100 mg tablet Take 100 mg by mouth in the morning. 03/20/2025 Morning omeprazole (PriLOSEC) [address] capsule Take 40 mg by mouth before breakfast. 03/20/2025 Morning rosuvastatin (Crestor) 10 mg tablet Take 2 tablets (20 mg) by mouth in the morning. (Patient not taking: Reported on 10/16/2023) 180 tablet 3 rosuvastatin (Crestor) 20 mg tablet TAKE 1 TABLET IN THE MORNING 90 tablet 3 03/20/2025 Morning tamsulosin (Flomax) 0.4 mg 24 hr capsule Take 1 capsule by mouth in the evening. 03/20/2025 Morning Cosigned by Pelon Keller MD at 03/21/2025 6:04 AM EDT * Skylar Mejia CNP - 03/21/2025 2:58 AM EDT Images from the original note were not included. Hospital Medicine History and Physical 03/21/2025 3:05 AM THE HOSPITALIST TEAM PREFERS TO USE [employer] CHAT FOR NON-URGENT COMMUNICATION 7AM- 7PM. IF I DO NOT RESPOND WITHIN 20 MINUTES OR URGENT MATTERS, PLEASE CALL THROUGH THE RETREAD BUILDER. FROM 7PM-7AM, PLEASE PAGE [phone](COVR). Chief Complaint Direct admit from [place] for fluid overload and elevated trop History of Present Illness Brent Car is an 74 y.o. male who came from home with past medical history CKD 3a, DM2, hypertension, hyperlipidemia, neuroendocrine carcinoma, left adrenal mass, atrial tachycardia [facility] with fluid overload and elevated troponin. Patient reports that on Thursday night he was about to go to bed when he began to feel midsternal chest pressure associated with shortness of breath and diaphoresis. States that this prompted him to call 911 and he was brought to the emergency department. States that after he arrived he was found tohave an elevated troponin of 85 with a repeat of 112. X-ray as well as CT was completed showing pulmonary vascular congestion. He was given a dose of IV Lasix as well as a dose of Plavix and a part of therapeutic Lovenox. He was initially admitted to [facility] but it was decided to transferfor possible cardiac cath. Upon arrival, repeat labs were completed showing troponin 43, BNP 460, BUN 31, creatinine 1.33. Review of System and Physical Exam Temp: [36.1 ??C (97 ??F)] 36.1 ??C (97 ??F) Heart Rate: [73] 73 Resp: [20] 20 BP: (127)/(80) 127/80 Physical Exam Vitals reviewed. Constitutional: Appearance: He is normal weight. HENT: Head: Normocephalic. Mouth/Throat: Mouth: Mucous membranes are dry. Pharynx: Oropharynx is clear. Eyes: Conjunctiva/sclera: Conjunctivae normal. Cardiovascular: Rate and Rhythm: Normal rate and regular rhythm. Pulmonary: Effort: Pulmonary effort is normal. Abdominal: General: Abdomen is flat. Bowel sounds are normal. Musculoskeletal: General: Normal range of motion. Skin: General: Skin is warm and dry. Capillary Refill: Capillary refill takes less than 2 seconds. Neurological: General: No focal deficit present. Mental Status: He is alert and oriented to person, place, and time. Mental status is at baseline. Psychiatric: Mood and Affect: Mood normal. Review of Systems Constitutional: Positive for diaphoresis. Negative for appetite change, chills, fatigue and fever. HENT: Negative for congestion and dental problem. Respiratory: Positive for shortness of breath. Negative for chest tightness. Cardiovascular: Positive for chest pain. Negative for palpitations. Gastrointestinal: Negative for abdominal pain, nausea and vomiting. Genitourinary: Negative for difficulty urinating and dysuria. Musculoskeletal: Negative for arthralgias, back pain and gait problem. Skin: Negative for color change and pallor. Neurological: Negative for dizziness, speech difficulty, light-headedness, numbness and headaches. Psychiatric/Behavioral: Negative for agitation, behavioral problems, confusion, decreased concentration, dysphoric mood and hallucinations. The patient is not hyperactive. Assessment and Plan Assessment & Plan Elevated troponin -Troponin 85->112->43 -Concern for ACS -Will initiate IV heparin infusion -Patient was given Plavix as well as therapeutic Lovenox at outside hospital -N.p.o. for possible cardiac cath -Most recent cardiac cath completed on 07/27/2023 showing mild CAD -Cardiology consult Fluid overload - BNP elevated at 2610 at outside hospital -He was given 40 mg of IV Lasix with improvement in shortness of breath -Echocardiogram is pending -Strict intake and output CKD stage 3a, GFR 45-59 ml/min ([facility]) - Stable, at baseline Type 2 diabetes mellitus without complication, without long-term current use of insulin ([facility]) - ISS, ACHS Mixed hyperlipidemia - Continue rosuvastatin 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[facility]) - Stable continue monitoring Primary hypertension - Continue losartan Atrial tachycardia, paroxysmal - Continue beta-janet Adrenal adenoma, left -Continue outpatient follow-up with urology VTE Prophylaxis: IV heparin ----- Focus of this inpatient stay will remain on problems that need acute care setting for care. We will review available studies and will order additional labs, imaging and other studies as appropriate. As needed medicines are ordered as appropriate. VTE Prophylaxis will be ordered as appropriate. Please see above for management plan for individual hospital problems. Home medications are reviewed and will be continued as appropriate. Patient will be continued to be followed during this hospital stay by a member of [facility]. Past Medical History Medical History[1] Past Surgical History Surgical History[2] Social History Social History Socioeconomic History Marital status: Spouse name: Not on file Number of children: Not on file Years of education: Not on file Highest education level: Not on file Occupational History Not on file Tobacco Use Smoking status: Former Current packs/day: 0.00 Average packs/day: 1 pack/day for 15.9 years (15.9 ttl pk-yrs) Types: Cigarettes Start date: 10/14/1967 Quit date: 09/14/1983 Years since quittin.5 Smokeless tobacco: Never Substance and Sexual Activity Alcohol use: Not Currently Comment: I rarely drink. Drug use: Never Sexual activity: Not Currently Partners: Female control/protection: Condom Male Other Topics Concern Not on file Social History Narrative Not on file Social Drivers of Health Financial Resource Strain: Low Risk (03/21/2025) Overall Financial Resource Strain (CARDIA) Difficulty of Paying Living Expenses: Not hard at all Food Insecurity: No Food Insecurity (03/21/2025) Hunger Vital Sign Worried About Running Out of Food in the Last Year: Never true Ran Out of Food in the Last Year: Not on file Transportation Needs: No Transportation Needs (03/21/2025) Transportation Lack of Transportation (Medical): No Lack of Transportation (Non-Medical): Not on file Physical Activity: Insufficiently Active (07/06/2024) [facility] [facility] Vital Sign Days of Exercise per Week: 2 days Minutes of Exercise per Session: 30 min Stress: No Stress Concern Present (07/06/2024) Received from [facility] [employer] [place] [employer] - Occupational Stress Questionnaire Feeling of Stress : Only a little Social Connections: Unknown (07/06/2024) Received from [facility] Social Connection and Isolation Panel [NHANES] Frequency of Communication with Friends and Family: More than three times a week Frequency of Social Gatherings with Friends and Family: Once a week Attends [employer] Services: Patient declined Active Member of Clubs or Organizations: No Attends Club or Organization Meetings: Never Marital Status: Intimate Partner Violence: Unknown (03/21/2025) Humiliation, Afraid, Rape, and Kick questionnaire Fear of Current or Ex-Partner: No Emotionally Abused: Not on file Physically Abused: Not on file Sexually Abused: Not on file Housing Stability: Low Risk (03/21/2025) Housing Stability Vital Sign Unable to Pay for Housing in the Last Year: No Number of Times Moved in the Last Year: 0 Homeless in the Last Year: No Family History family history includes Angina in his mother; Cancer in his brother, brother, father, mother, and sister; Diabetes type II in his brother, brother, father, and sister; Heart attack in his mother; Heart failure in his mother; Hypertension in his brother, father, and mother. Allergies is allergic to azithromycin, ciprofloxacin, and lisinopril. Prior to Admission Medications Prescriptions Prior to Admission[3] Labs Labs Reviewed COMPREHENSIVE METABOLIC PANEL - Abnormal Result Value Sodium 136 Potassium 4.2 Chloride 103 CO2 25 Anion Gap 12 BUN 31 (*) Creatinine 1.33 (*) BUN/Creatinine Ratio 23.3 Glucose 122 (*) Calcium 9.4 AST 13 ALT (SGPT) 9 Alkaline Phosphatase 101 Total Protein 7.0 Albumin 4.3 Total Bilirubin 0.6 eGFR 55.7 (*) HIGH SENSITIVITY TROPONIN I - Abnormal High Sensitivity Troponin I 43 (*) CBC WITH AUTO DIFFERENTIAL - Abnormal Auto WBC 11.08 (*) RBC 5.20 Hemoglobin 14.9 Hematocrit 45.8 MCV 88.1 MCH 28.7 MCHC 32.5 RDW 15.9 (*) Neutrophils % 72.8 (*) Lymphocytes % 16.7 (*) Monocytes % 8.6 Eosinophils % 1.1 Basophils % 0.4 Neutrophils Absolute 8.08 (*) Lymphocytes Absolute 1.85 Monocytes Absolute 0.95 Eosinophils Absolute 0.12 Basophils Absolute 0.04 Platelets 425 (*) nRBC % 0.0 Immature Granulocytes % 0.4 Immature Granulocytes Absolute 0.04 B-TYPE NATRIURETIC PEPTIDE - Abnormal BNP 460 (*) MAGNESIUM - Normal Magnesium 2.1 PHOSPHORUS - Normal Phosphorus 3.6 PROTIME-INR - Normal Protime 13.4 INR 1.02 CBC AND DIFFERENTIAL Narrative: The following orders were created for panel order CBC and differential. Procedure Abnormality Status --------- ------ CBC auto differential[[id number]] Abnormal Final result Please view results for these tests on the individual orders. APTT ANTI-XA (HEPARIN LEVEL) ANTI-XA (HEPARIN LEVEL) BASIC METABOLIC PANEL CBC HIGH SENSITIVITY TROPONIN I HIGH SENSITIVITY TROPONIN I Imaging Tilt table Narrative: A Tilt Table test was performed on 10/16/23 at [facility] METHOD: The test was explained to Brent Car, and the information sheet was signed. ECG monitoring was initiated and a blood pressure cuff was applied to the upper arm. An IV line was placed. AT BASELINE, Had a supine blood pressure of 167/88 MmHg, a heart rate of 69 and Normal Sinus rhythm. Symptoms at baseline: dizziness. THE PATIENT WAS TILTED to 70 degree [...] position changes which subsided with rest. FINAL Impression: Negative study for Syncope RECOMMENDED FOLLOW UP: Call [facility] to schedule and appointment Signed Skylar Mejia [facility] 03/21/2025 3:05 AM [1] Past Medical History: Diagnosis Date Abnormal ECG Arrhythmia CKD (chronic kidney disease) stage 3, GFR 30-59 ml/min ([facility]) Diabetes 1.5, managed as type 2 ([facility]) HTN (hypertension) Hyperlipidemia NSVT (nonsustained ventricular tachycardia) ([facility]) Orthostatic hypotension 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 03/20/2025 Morning amLODIPine (Norvasc) 10 mg tablet Take 5 mg by mouth if needed. Takes when BP is elevated (Patient not taking: Reported on 03/21/2025) Unknown bisoprolol (Zebeta) 5 mg tablet TAKE 1 TABLET IN THE MORNING AND AT BEDTIME 180 tablet 3 03/20/2025 Morning empagliflozin (Jardiance) 25 mg Take 25 mg by mouth in the morning. 03/20/2025 Morning fluticasone (Flonase) 50 mcg/actuation nasal spray Administer 2 sprays into each nostril in the morning. Shake gently. Before first use, prime pump. After use, clean tip and replace cap. (Patient nottaking: Reported on 03/21/2025) Unknown furosemide (Lasix) 20 mg tablet Take 20 mg by mouth in the morning. 03/20/2025 Morning glimepiride (Amaryl) 4 mg tablet Take 4 mg by mouth before breakfast. 03/20/2025 Morning hydrALAZINE (Apresoline) 50 mg tablet Take 1 tablet (50 mg) by mouth in the morning and at bedtime.(Patient not taking: Reported on 10/16/2023) 180 tablet 3 losartan (Cozaar) 100 mg tablet Take 100 mg by mouth in the morning. 03/20/2025 Morning omeprazole (PriLOSEC) [address] capsule Take 40 mg by mouth before breakfast. 03/20/2025 Morning rosuvastatin (Crestor) 10 mg tablet Take 2 tablets (20 mg) by mouth in the morning. (Patient not taking: Reported on 10/16/2023) 180 tablet 3 rosuvastatin (Crestor) 20 mg tablet TAKE 1 TABLET IN THE MORNING 90 tablet 3 03/20/2025 Morning tamsulosin (Flomax) 0.4 mg 24 hr capsule Take 1 capsule by mouth in the evening. 03/20/2025 Morning Cosigned by Pelon Keller MD at 03/21/2025 6:04 AM EDT documented in this encounter Consult Notes * Ezekiel Clayton MD - 03/21/2025 9:17 AM EDT Cardiology Consult Note Reason for Consult: Chest pain HPI: Brent Car is a 74 y.o. male Past medical history of atrial tachycardia on bisoprolol, orthostatic hypotension who presented to outside hospital with complaints of chest pressure. Patient states that he was getting ready for bed and lay down when he felt substernal chest pressure with no radiation that lasted for a few minutes. He states that the pain resolved without any intervention. Patient states that he has a history of GERD but the pain was different from his reflux symptoms. Of note, patient underwent coronary angiography in June 2023 which showed nonobstructive coronary artery disease and normal pressures. Patient was transferred over to [facility] for possible cardiac catheterization. On presentation to the hospital, troponins have been flat at 43. EKG done showed left bundle branchblock with premature ventricular complexes. Echocardiogram pending currently Cardiology ROS: Review of Systems Constitutional: Negative for chills and fever. Cardiovascular: Positive for chest pain. Negative for dyspnea on exertion, irregular heartbeat, legswelling, orthopnea, palpitations, paroxysmal nocturnal dyspnea and syncope. Respiratory: Positive for shortness of breath. Negative for cough. Gastrointestinal: Negative for abdominal pain, nausea and vomiting. Neurological: Negative for dizziness and light-headedness. 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 Surgical History He has a past surgical history that includes Cardiac catheterization (07/27/2023) and Esophagogastroduodenoscopy. Social History He reports that he quit smoking about 41 years ago. His smoking use included cigarettes. He startedsmoking about 57 years ago. He has a 15.9 pack-year smoking history. He has never used smokeless tobacco. He reports that he does not currently use alcohol. He reports that he does not use drugs. Family History Family History[1] Allergies Azithromycin, Ciprofloxacin, and Lisinopril Medications Prescriptions Prior to Admission[2] Last Recorded Vitals Patient Vitals for the past 24 hrs: BP Temp Temp src Pulse Resp SpO2 Height Weight 03/21/25 0325 121/55 -- -- 66 -- 93 % -- -- 03/21/25 0140 127/80 36.1 ??C (97 ??F) Temporal 73 20 99 % 1.778 m (5' 10 ) 103 kg (228 lb) Physical Examination: Physical Exam Constitutional: General: He is not in acute distress. Appearance: Normal appearance. He is obese. HENT: Right Ear: External ear normal. Left Ear: External ear normal. Nose: Nose normal. Eyes: Extraocular Movements: Extraocular movements intact. Cardiovascular: Rate and Rhythm: Normal rate and regular rhythm. Heart sounds: Normal heart sounds. Pulmonary: Breath sounds: Normal breath sounds. No wheezing or rales. Abdominal: General: There is no distension. Palpations: Abdomen is soft. Tenderness: There is no abdominal tenderness. Musculoskeletal: Right lower leg: No edema. Left lower leg: No edema. Neurological: Mental Status: He is alert and oriented to person, place, and time. Psychiatric: Mood and Affect: Mood normal. Behavior: Behavior normal. Relevant Lab Results Encounter Date: 03/21/25 ECG 12 lead Result Value Ventricular Rate 74 Atrial Rate 74 WA Interval 192 QRS DURATION 160 QT Interval 498 QTC CALCULATION(BAZETT) 552 P [place] 52 R-[place] 133 T Wave [place] -12 Impression Sinus rhythm with occasional Premature ventricular complexes Left bundle branch block Abnormal ECG When compared with ECG of 27-JUL-2023 07:48, Premature ventricular complexes are now Present Left bundle branch block is now Present No results found for: CKTOTAL , CKMB , CKMBINDEX , TROPONINI No echocardiogram results found for the past 12 months No nuclear medicine results found for the past 12 months Relevant Imaging Results ECG 12 lead Sinus rhythm with occasional Premature ventricular complexes Left bundle branch block Abnormal ECG When compared with ECG of 27-JUL-2023 07:48, Premature ventricular complexes are now Present Left bundle branch block is now Present Assessment NSTEMI, troponin of 112 Shortness of breath, likely secondary to acute heart failure, echocardiogram pending, BNP 460 History of atrial tachycardia on bisoprolol Orthostatic hypotension Plan We will proceed with coronary angiography and right heart catheterization today for further evaluation of his symptoms. Further recommendations to follow once results are available Continue guideline directed medical therapy for coronary artery disease including aspirin, statin and bisoprolol Will obtain echocardiogram to further evaluate ejection fraction, valvular anatomy and any regionalwall motion abnormalities Continue to monitor electrolytes. Maintain potassium more than 4 and magnesium more than 2. Cardiology will continue to follow. Please call with any questions Addendum: Coronary angiography showed mild non-obstructive coronary artery disease. Right heart catheterization showed normal left/right filling pressures. Echocardiogram done showed ejection fraction of 20%. Will start patient on guideline directed medical therapy with Aldactone 25 mg, Farxiga 10 mg. Continue home Bisoprolol and Losartan. Will transition to [facility] as an outpatient. Will need follow-up with cardiology in 1 week. Ezekiel Clayton MD PGY-4 Horticultural Technical Officer [facility] [1] Family History Problem Relation Name Age of Onset Angina Mother Yasmin Car Cancer Mother Yasmin Car Heart attack Mother Yasmin Car Heart failure Mother Yasmin Car Hypertension Mother Yasmin Car Cancer Father Demetri Car Diabetes type II Father Demetri Car Hypertension Father Demetri Car Cancer Sister Adrienne Diabetes type II Sister Adrienne Cancer Brother Carrington Diabetes type II Brother Carrington Hypertension Brother Carrington Cancer Brother Artem Diabetes type II Brother Artem [2] Medications Prior to Admission Medication Sig Dispense Refill Last Dose/Taking allopurinol (Zyloprim) 300 mg tablet Take 300 mg by mouth in the morning. 03/20/2025 Morning bisoprolol (Zebeta) 5 mg tablet TAKE 1 TABLET IN THE MORNING AND AT BEDTIME 180 tablet 3 03/20/2025 Morning empagliflozin (Jardiance) 25 mg Take 25 mg by mouth in the morning. 03/20/2025 Morning furosemide (Lasix) 20 mg tablet Take 20 mg by mouth in the morning. 03/20/2025 Morning glimepiride (Amaryl) 4 mg tablet Take 4 mg by mouth before breakfast. 03/20/2025 Morning losartan (Cozaar) 100 mg tablet Take 100 mg by mouth in the morning. 03/20/2025 Morning omeprazole (PriLOSEC) [address] capsule Take 40 mg by mouth before breakfast. 03/20/2025 Morning rosuvastatin (Crestor) 20 mg tablet TAKE 1 TABLET IN THE MORNING 90 tablet 3 03/20/2025 Morning tamsulosin (Flomax) 0.4 mg 24 hr capsule Take 1 capsule by mouth in the evening. 03/20/2025 Morning amLODIPine (Norvasc) 10 mg tablet Take 5 mg by mouth if needed. Takes when BP is elevated (Patient not taking: Reported on 03/21/2025) Unknown fluticasone (Flonase) 50 mcg/actuation nasal spray Administer 2 sprays into each nostril in the morning. Shake gently. Before first use, prime pump. After use, clean tip and replace cap. (Patient nottaking: Reported on 03/21/2025) Unknown hydrALAZINE (Apresoline) 50 mg tablet Take 1 tablet (50 mg) by mouth in the morning and at bedtime.(Patient not taking: Reported on 10/16/2023) 180 tablet 3 rosuvastatin (Crestor) 10 mg tablet Take 2 tablets (20 mg) by mouth in the morning. (Patient not taking: Reported on 10/16/2023) 180 tablet 3 Cosigned by Zeus Schroeder MD at 03/24/2025 9:54 AM EDT Associated attestation - Zeus Schroeder MD - 03/24/2025 9:54 AM EDT By using the attestations below, the signing clinician agrees that I have read and verify that thedocumentation has been personally reviewed by me and ensure that the documentation accurately reflects the encounter. GC: I personally saw this patient on the day of the encounter, performed the nash portion(s) of the service and participated in the management and confirm the resident's documentation. Please note there may be an additional personal documentation from me. Additional Comments: agree documented in this encounter Nursing Notes * Chandrika Cowan RN - 03/21/2025 12:13 PM EDT Report given to ALONSO Adams from [facility] Any medications or safety alerts were reviewed. Any pending diagnostics and notifications were alsoreviewed, as well as any safety concerns or issues, abnormal labs, abnormal imagining, and abnormalassessment findings. Questions were answered. Bedside report given to Angei RN from ALONSO Fernandez. cork slabs sawyer RN presented site to bedside RN. Bedside RN visualized site and palpated site to ensure there was no hematoma or bruising, and femoral site appears flat. Both bedside RN and chemical laboratory assistant RN mutually agreed that the site presents normal. cork slabs sawyer RN and bedside RN either palpated or used a doppler to assess pulses on the patient. documented in this encounter Miscellaneous Notes * Care Plan - Denny Lester RN - 03/22/2025 8:27 AM EDT The patient is Moderately Stable - Low risk of patient condition declining or worsening The patient's goals for the shift include Comfort, Rest, Discharge The clinical goals for the shift include VSS, Comfort, Safety Over the shift, the patient did not make progress toward the following goals. Barriers to progression include Problem: Cardiovascular - Adult Goal: Maintains optimal cardiac output and hemodynamic stability Outcome: Progressing Problem: Cardiovascular - Adult Goal: Absence of cardiac dysrhythmias or at baseline Outcome: Progressing . Recommendations to address these barriers include Problem: Metabolic/Fluid and Electrolytes - Adult Goal: Glucose maintained within prescribed range Outcome: Progressing Problem: Metabolic/Fluid and Electrolytes - Adult Goal: Hemodynamic stability and optimal renal function maintained Outcome: Progressing Problem: Metabolic/Fluid and Electrolytes - Adult Goal: Electrolytes maintained within normal limits Outcome: Progressing Problem: Infection - Adult Goal: Absence of infection during hospitalization Outcome: Progressing Problem: Pain - Adult Goal: Verbalizes/displays adequate comfort level or baseline comfort level Outcome: Progressing Problem: Safety - Adult Goal: Free from fall injury Outcome: Progressing Problem: Discharge Planning Goal: Discharge to home or other facility with appropriate resources Outcome: Progressing Problem: Chronic Conditions and Co-morbidities Goal: Patient's chronic conditions and co-morbidity symptoms are monitored and maintained or improved Outcome: Progressing . * Care Plan - Ashley López RN - 03/21/2025 10:36 PM EDT The patient is Moderately Stable - Low risk of patient condition declining or worsening The patient's goals for the shift include comfort and sleep The clinical goals for the shift include stable vitals; safety; comfort Over the shift, the patient continued to make progress toward the following goals. * Care Plan - Rayna Mckeon RN - 03/21/2025 4:24 PM EDT The patient is Moderately Stable - Low risk of patient condition declining or worsening The patient's goals for the shift include comfort, rest The clinical goals for the shift include stable vitals, safety Problem: Pain - Adult Goal: Verbalizes/displays adequate comfort level or baseline comfort level Outcome: Progressing Problem: Safety - Adult Goal: Free from fall injury Outcome: Progressing Problem: Discharge Planning Goal: Discharge to home or other facility with appropriate resources Outcome: Progressing Problem: Chronic Conditions and Co-morbidities Goal: Patient's chronic conditions and co-morbidity symptoms are monitored and maintained or improved Outcome: Progressing Problem: Skin/Tissue Integrity - Adult Goal: Skin integrity remains intact Outcome: Progressing * Pre-Sedation Documentation - Sukhjinder Guevara MD - 03/21/2025 10:31 AM EDT Patient: Brent Car Procedure Information Date/Time: 03/21/251799 Procedures: Coronary angiography Right heart cath Location: [facility] / [facility] (Cath) Providers: Jai Subramanian MD Clinical information reviewed: Allergies Meds Physical Exam Airway Mallampati: III TM distance: >3 FB Neck ROM: full Cardiovascular Rhythm: regular Dental Pulmonary Neurological Abdominal Anesthesia Plan ASA 3 other (Conscious sedation) intravenous induction Anesthetic plan and risks discussed with patient. Use of blood products discussed with patient who consented to blood products. Plan discussed with attending and fellow. Additional Equipment Requests Cosigned by Jai Subramanian MD at 03/21/2025 10:33 AM EDT * Assessment & Plan Note - Skylar Mejia CNP - 03/21/2025 3:13 AM EDTAssociated Problem(s): CKD stage 3a, GFR 45-59 ml/min ([facility]) - Stable, at baseline * Assessment & Plan Note - Skylar Mejia CNP - 03/21/2025 3:13 AM EDTAssociated Problem(s): Type 2 diabetes mellitus without complication, without long-term current useof insulin ([facility]) - ISS, ACHS * Assessment & Plan Note - Skylar Mejia CNP - 03/21/2025 3:13 AM EDTAssociated Problem(s): Mixed hyperlipidemia - Continue rosuvastatin * Assessment & Plan Note - Skylar Mejia CNP - 03/21/2025 3:13 AM EDTAssociated Problem(s): 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[facility]) - Stable continue monitoring * Assessment & Plan Note - Skylar Mejia CNP - 03/21/2025 3:13 AM EDTAssociated Problem(s): Primary hypertension - Continue losartan * Assessment & Plan Note - Skylar Mejia CNP - 03/21/2025 3:13 AM EDTAssociated Problem(s): Atrial tachycardia, paroxysmal - Continue beta-janet * Assessment & Plan Note - Skylar Mejia CNP - 03/21/2025 3:13 AM EDTAssociated Problem(s): Adrenal adenoma, left -Continue outpatient follow-up with urology * Assessment & Plan Note - Skylar Mejia CNP - 03/21/2025 3:13 AM EDTAssociated Problem(s): Fluid overload - BNP elevated at 2610 at outside hospital -He was given 40 mg of IV Lasix with improvement in shortness of breath -Echocardiogram is pending -Strict intake and output * Assessment & Plan Note - Skylar Mejia CNP - 03/21/2025 3:13 AM EDTAssociated Problem(s): Elevated troponin -Troponin 85->112->43 -Concern for ACS -Will initiate IV heparin infusion -Patient was given Plavix as well as therapeutic Lovenox at outside hospital -N.p.o. for possible cardiac cath -Most recent cardiac cath completed on 07/27/2023 showing mild CAD -Cardiology consult * Care Plan - Ashley López RN - 03/21/2025 2:24 AM EDT The patient is Moderately Stable - Low risk of patient condition declining or worsening The patient's goals for the shift include comfort The clinical goals for the shift include stable vitals Over the shift, the patient continued to make progress toward the following goals. documented in this encounter Plan of Treatment DateTypeDepartmentCare Team (Latest Contact Info)Rasgeegwikh48/25/2025 11:15 AM ESTOffice Visit [facility] [place] [address] [place] [address] Noe San MD [address] [place] [id number] NameTypePriorityAssociated DiagnosesDate/TimeCardiac event monitorCardiac ServicesRoutine NSVT (nonsustained ventricular tachycardia) (CMS/HCC) 03/22/2025 2:16 PM EDTNameTypePriorityAssociated DiagnosesOrder ScheduleBasic metabolic panelLabRoutine Elevated troponin Expected: 03/28/2025 (Approximate), Expires: 03/21/2026ardiac event monitor Cardiac ServicesRoutine NSVT (nonsustained ventricular tachycardia) (CMS/HCC) Once for 1 Occurrences starting 03/22/2025 until 03/22/2025documented as of this encounter Procedures Procedure NamePriorityDate/TimeAssociated DiagnosisCommentsPOCT GLUCOSE METER UNSOLICITED UJCDQQDNovujdz58/08/2025 11:00 AM EDT POCT GLUCOSE METER UNSOLICITED TIWLJOTTpztpzj77/08/2025 7:31 AM EDT CBCPending Nmftmvhzk07/08/2025 4:26 AM EDT PHOSPHORUSPending Rtxkdtmes83/08/2025 4:26 AM EDT MAGNESIUMPending Fiqcyhweg09/08/2025 4:26 AM EDT LIPID PANELAdd-On03/22/2025 4:26 AM EDT BASIC METABOLIC PANELPending Unyqfmxzy73/08/2025 4:26 AM EDT POCT GLUCOSE METER UNSOLICITED QOUINYPDryjjyt74/07/2025 8:33 PM EDT POCT GLUCOSE METER UNSOLICITED KILWGAVPsynwbs82/07/2025 4:41 PM EDT HIGH SENSITIVITY TROPONIN JMghfphr49/07/2025 2:41 PM EDT RIGHT HEART MCYVDffsafx22/07/2025 11:29 AM EDT Elevated troponin CORONARY SUQSQWFIAAGPpdvrve70/07/2025 11:29 AM EDT Elevated troponin XR CHEST 1 HGPTAFAN58/07/2025 9:26 AM EDT COMPLETE ECHO (TTE) W/ IMAGING RZEZMQpdkxxv72/07/2025 9:10 AM EDT POCT GLUCOSE METER UNSOLICITED GIRLOLXUcojujm10/07/2025 7:25 AM EDT ECG 12-CSXLMUVA43/07/2025 5:02 AM EDT HIGH SENSITIVITY TROPONIN JWrhqg9403/21/2025 3:45 AM EDT TQNLyhueyy31/07/2025 3:45 AM EDT BASIC METABOLIC JRDJBFqoxhec02/07/2025 3:45 AM EDT HIGH SENSITIVITY TROPONIN ISTAT1 2:09 AM EDT CBC WITH AUTO WYIWBJHVKTPCWXBG19/07/2025 2:09 AM EDT APTTSTAT Add-on03/21/2025 2:09 AM EDT PROTIME-JZTJWJX7503/21/2025 2:09 AM EDT ANTI-FACTOR XAAdd-On03/21/2025 2:09 AM EDT CBC AND GOCRFKXKIHRMMCUZ52/07/2025 2:09 AM EDT LYJRYEPDGNPZLT48/07/2025 2:09 AM EDT B-TYPE NATRIURETIC IARIKQDQOBZ59/07/2025 2:09 AM EDT NRVKYEUJHJLID38/07/2025 2:09 AM EDT COMPREHENSIVE METABOLIC MBDZVQPGM72/07/2025 2:09 AM EDT documented in this encounter Results * (ABNORMAL) POCT glucose meter (03/22/2025 11:00 AM EDT)ComponentValueRef Range Test MethodAnalysis TimePerformed AtPathologist SignatureGlucose WSV711(H)70 - 105 mg/dL03/22/2025 11:11 AM EDTNEW [facility] ([facility])Comment:jarizme Specimen (Source)Anatomical Location / LateralityCollection Method / Volume Collection TimeReceived TimeBloodCapillary blood specimen / Jnhmopt0503/22/2025 11:00 AM EDT1 11:11 AM EDT Narrative [facility] ([facility]) - 03/22/2025 11:11 AM EDT Waived Testing in the ED is performed under the ED CLIA certificate #[id number]. Authorizing ProviderResult TypeResult StatusOmar Nadir BARBER BLOOD ORDERABLES Final ResultPerforming OrganizationAddressCity/State/ZIP CodePhone Number [facility] ([facility]) [address] [place] [address] * (ABNORMAL) POCT glucose meter (03/22/2025 7:31 AM EDT)ComponentValueRef Range Test MethodAnalysis TimePerformed AtPathologist SignatureGlucose MEK840(H)70 - 105 mg/dL03/22/2025 7:41 AM [facility] ([facility])Comment:jarizme Specimen (Source)Anatomical Location / LateralityCollection Method / Volume Collection TimeReceived TimeBloodCapillary blood specimen / Bycocbu4403/22/2025 7:31 AM EDT1 7:41 AM EDT Narrative [facility] ([facility]) - 03/22/2025 7:41 AM EDT Waived Testing in the ED is performed under the ED CLIA certificate #[id number]. Authorizing ProviderResult TypeResult StatusOmar Nadir BARBER BLOOD ORDERABLES Final ResultPerforming OrganizationAddressCity/State/ZIP CodePhone Number [facility] ([facility]) [address] [place] [address] * (ABNORMAL) Lipid panel (03/22/2025 4:26 AM EDT)ComponentValueRef RangeTest MethodAnalysis TimePerformed AtPathologist TcglwvfehAzaelozpldztu249(H)<150 mg/dL03/22/2025 7:59 AM [facility] ([facility])Comment: TRIGLYCERIDE REFERENCE RANGE: 20 YEARS AND OLDER ?CARDIOVASCULAR RISK LESS THAN 150 mg/dL ? LOW RISK 150 TO 199 mg/dL ?BORDERLINE RISK 200 mg/dL AND GREATER ? HIGH RISK Inxqkwziryt86(L)120 - 200 mg/dL03/22/2025 7:59 AM [facility] ([facility]) LDL Dxfwliwyjv281 - 160 mg/dL03/22/2025 7:59 AM [facility] ([facility])HDL 21(L)23 - 92 mg/dL03/22/2025 7:59 AM [facility] ([facility])Non HDL Gmhzufhqquv7379/08/2025 7:59 AM [facility] ([facility])Total VLDL-C330 - 40 mg/dL03/22/2025 7:59 AM [facility] ([facility])Cholesterol/HDL Ratio4.6 mg/dL03/22/2025 7:59 AM [facility])Specimen (Source)Anatomical Location / LateralityCollection Method / VolumeCollection TimeReceived Time BloodVenous blood specimen / UnknownVenipuncture / Mtfqdqj7603/22/2025 4:26 AM EDT 03/22/2025 4:57 AM EDT Narrative Authorizing ProviderResult TypeResult StatusSukhjinder BARBER BLOOD ORDERABLES Final ResultPerforming OrganizationAddressCity/State/ZIP CodePhone Number [facility]) [address] [place] [address] * Phosphorus (03/22/2025 4:26 AM EDT)ComponentValueRef RangeTest MethodAnalysis TimePerformed AtPathologist SignaturePhosphorus3.72.5 - 5.0 mg/dL03/22/2025 5:25 AM [facility])Specimen (Source)Anatomical Location / LateralityCollection Method / VolumeCollection TimeReceived TimeBloodVenous blood specimen / UnknownVenipuncture / Cxepxlr9703/22/2025 4:26 AM EDT1 4:57 AM EDT Narrative Authorizing ProviderResult TypeResult StatusSukhjinder BARBER BLOOD ORDERABLES Final ResultPerforming OrganizationAddressCity/State/ZIP CodePhone Number [facility]) [address] [place] [address] * Magnesium (03/22/2025 4:26 AM EDT)ComponentValueRef RangeTest MethodAnalysis TimePerformed AtPathologist SignatureMagnesium2.01.9 - 2.7 mg/dL03/22/2025 5:25 AM [facility])Specimen (Source)Anatomical Location / LateralityCollection Method / VolumeCollection TimeReceived TimeBloodVenous blood specimen / UnknownVenipuncture / Mokfqtp8003/22/2025 4:26 AM EDT1 4:57 AM EDT Narrative Authorizing ProviderResult TypeResult StatusSukhjinder BARBER BLOOD ORDERABLES Final ResultPerforming OrganizationAddressCity/State/ZIP CodePhone Number [facility]) [address] [place] [address] * (ABNORMAL) CBC (03/22/2025 4:26 AM EDT)ComponentValueRef RangeTest Method Analysis TimePerformed AtPathologist SignatureAuto WBC9.484.00 - 10.60 10*3/uL 03/22/2025 5:15 AM [facility] ([facility])RBC4.854.20 - 5.70 10*6/uL 03/22/2025 5:15 AM [facility] ([facility])Jvpfmrkibx61.913.0 - 17.0 g/dL 03/22/2025 5:15 AM [facility] ([facility])Curzlqbaqm77.839.0 - 50.0 % 03/22/2025 5:15 AM [facility])MCV88.282.0 - 98.0 fL 03/22/2025 5:15 AM [facility])MCH28.727.0 - 33.0 pg 03/22/2025 5:15 AM [facility])MCHC32.532.0 - 35.0 g/dL 03/22/2025 5:15 AM [facility] ([facility])RDW15.9(H)11.5 - 15.0 % 03/22/2025 5:15 AM [facility])Pefsoyzio661899 - 400 10*3/uL 03/22/2025 5:15 AM [facility])Specimen (Source)Anatomical Location / LateralityCollection Method / VolumeCollection TimeReceived Time BloodVenous blood specimen / UnknownVenipuncture / Thhusfs8003/22/2025 4:26 AM EDT1 4:57 AM EDT Narrative Authorizing ProviderResult TypeResult StatusOmar Nadir BARBER BLOOD ORDERABLES Final ResultPerforming OrganizationAddressCity/State/ZIP CodePhone Number [facility]) [address] [place] [address] * (ABNORMAL) Basic metabolic panel (03/22/2025 4:26 AM EDT)ComponentValueRef RangeTest MethodAnalysis TimePerformed AtPathologist AosyhrvmcQsqpgi146021 - 145 mmol/L1 5:25 AM [facility] ([facility])Potassium4.23.5 - 5.1 mmol/L1 5:25 AM [facility] ([facility])Cutmufuu83370 - 107 mmol/L1 5:25 AM [facility] ([facility])UJ02362 - 31 mmol/L 03/22/2025 5:25 AM [facility] ([facility])BUN30(H)7 - 25 mg/dL03/22/2025 5:25 AM [facility] ([facility])Creatinine1.34(H)0.70 - 1.30 mg/dL 03/22/2025 5:25 AM [facility] ([facility])Uigkdsr986(H)70 - 100 mg/dL 03/22/2025 5:25 AM [facility] ([facility])Calcium9.18.6 - 10.3 mg/dL 03/22/2025 5:25 AM [facility] ([facility])Anion Cdl262 - 20 mmol/L 03/22/2025 5:25 AM [facility] ([facility])eGFR55.2(L)>60.0 mL/min/1.73m* 5:25 AM [facility] ([facility])Comment:The [facility]???s estimated glomerular filtration rate (eGFR) will no longer include consideration of race in its calculation. The National [employer]???s eGFR Task Force developed new recommendations for the estimation of the glomerular filtration rate in the [place] They recommend immediate implementation of the new equation refit without the race variable in all laboratories because the calculation does not include race. In addition to not including race in the calculation and reporting, it included diversity in its development, and has acceptable performance characteristics and potential consequences that do not disproportionately affect any one group of individuals.BUN/Creatinine Ratio22.410 5:25 AM [facility] ([facility])Specimen (Source)Anatomical Location / LateralityCollection Method / VolumeCollection TimeReceived TimeBloodVenous blood specimen / Unknown Venipuncture / Ekvkske9403/22/2025 4:26 AM EDT1 4:57 AM EDT Narrative Authorizing ProviderResult TypeResult StatusOmarogelio BARBER BLOOD ORDERABLES Final ResultPerforming OrganizationAddressCity/State/ZIP CodePhone Number [facility]) [address] [place] [address] * (ABNORMAL) POCT glucose meter (03/21/2025 8:33 PM EDT)ComponentValueRef Range Test MethodAnalysis TimePerformed AtPathologist SignatureGlucose ITK467(H)70 - 105 mg/dL03/21/2025 8:46 PM [facility] ([facility])Comment:[email or web address] Specimen (Source)Anatomical Location / LateralityCollection Method / Volume Collection TimeReceived TimeBloodCapillary blood specimen / Phaxvzz4503/21/2025 8:33 PM EDT1 8:46 PM EDT Narrative [facility] ([facility]) - 03/21/2025 8:46 PM EDT Waived Testing in the ED is performed under the ED CLIA certificate #[id number]. Authorizing ProviderResult TypeResult StatusOmarogelio BARBER BLOOD ORDERABLES Final ResultPerforming OrganizationAddressCity/State/ZIP CodePhone Number [facility]) [address] [place] [address] * (ABNORMAL) POCT glucose meter (03/21/2025 4:41 PM EDT)ComponentValueRef Range Test MethodAnalysis TimePerformed AtPathologist SignatureGlucose FSZ501(H)70 - 105 mg/dL03/21/2025 5:05 PM [facility] ([facility])Comment:jarizme Specimen (Source)Anatomical Location / LateralityCollection Method / Volume Collection TimeReceived TimeBloodCapillary blood specimen / Fialaon0203/21/2025 4:41 PM EDT1 5:05 PM EDT Narrative [facility] ([facility]) - 03/21/2025 5:05 PM EDT Waived Testing in the ED is performed under the ED CLIA certificate #[id number]. Authorizing ProviderResult TypeResult StatusOmar Nadir HERNANDEZLAB BLOOD ORDERABLES Final ResultPerforming OrganizationAddressCity/State/ZIP CodePhone Number [facility] ([facility]) [address] [place] [address] * (ABNORMAL) High Sensitivity Troponin I (03/21/2025 2:41 PM EDT)ComponentValue Ref RangeTest MethodAnalysis TimePerformed AtPathologist SignatureHigh Sensitivity Troponin I28(H)<20 ng/L1 3:55 PM EDTNEW [facility] ([facility])Specimen (Source)Anatomical Location / LateralityCollection Method / VolumeCollection TimeReceived TimeBloodVenous blood specimen / Unknown Venipuncture / Icnxnud5503/21/2025 2:41 PM EDT1 3:21 PM EDT Narrative Authorizing ProviderResult TypeResult StatusOmar Nadir HERNANDEZLAB BLOOD ORDERABLES Final ResultPerforming OrganizationAddressCity/State/ZIP CodePhone Number [facility] ([facility]) [address] [place] [address] * CORONARY ANGIOGRAPHY, RIGHT HEART CATH (03/21/2025 11:29 AM EDT)Anatomical RegionLateralityModalityOtherSpecimen (Source)Anatomical Location / Laterality Collection Method / VolumeCollection TimeReceived Time Narrative 03/21/2025 11:35 AM EDT PROCEDURE PHYSICIAN: Jai Subramanian MD . Indications: Bernt Car is a 74 y.o. male who is admitted with chest pain, elevated troponin and LV dysfunction. ??He was referred for cardiac catheterization. Assistants: None. Procedure Performed: Bilateral selective coronary angiogram. Right heart catheterization. Access into the right internal jugular vein under ultrasound guidance. Methods: ??Procedure was explained to the patient with risks and benefits; he signed informed consent. ??he was brought to the chemical laboratory assistant in a fasting state. The right neck area was prepped and draped in usual fashion. Micropuncture technique was used for access under ultrasound guidance into the right internal jugular vein. ??A 6-Cuban x 11 cm sheath was placed. ?? The right wrist area was prepped and draped in usual fashion. Micropuncture technique was used for access in the radial artery. ??A 6-Cuban x 11 cm sheath was placed. ??Verapamil was given through the sheath, and heparin was administered intravenously. ?? A 5-Cuban Ponce catheter was used for right heart catheterization and measurement of pressures and calculation of cardiac output using the estimated Pretty method. ??Ponce catheter was removed. Bilateral selective coronary angiography was then performed using 6-Cuban JL3.5 diagnostic catheter for engagement of the left coronary artery and 6-Cuban JR5 diagnostic catheter for engagement of the right coronary artery. Catheters were removed. Hemostasis was achieved by TR band in the radial artery manual compression in the internal jugular vein. ??he tolerated the procedure well and was transferred back to the hospital room. Hemodynamic Data: ?? RA: 5 RV: 28/5, 7 PA: 27/15 (20) PCWP: 8 CO: 5.62 CI: 2.55 O2 Sat: PA sat: 65%, AO sat: 90% AO: 128/67 (90) Coronary angiography: This is a right-dominant circulation. Left Main: This arises from the left coronary cusp. ??It bifurcates into left anterior descending and circumflex vessels. ??This has mild disease but no obstructive lesions. Left anterior descending: ??This has mild disease in the mid segment around the takeoff of a diagonal branch but no obstructive lesions. Circumflex: ?? This is a non-dominant vessel. ??This has mild luminal irregularities but no obstructive lesions. Right coronary artery: ?? This arises from the right coronary cusp. ??It is a dominant vessel. This has mild disease in the proximal segment but no obstructive lesions. Impression/Findings: Mild non-obstructive coronary artery disease. Normal left filling pressures. Normal right filling pressures. No pulmonary hypertension. Normal cardiac output and cardiac index. Plan: Medical therapy for coronary artery disease. Aspirin 81 mg daily for life. Statin therapy for life. Guideline directed medical therapy for heart failure. Further recommendations per inpatient Cardiology service. Follow up in Cardiology Clinic. Jai Subramanian MD Study Details Elevated troponin [R79.89], Other chest pain [R07.89] Authorizing ProviderResult TypeResult StatusGeorge Moris [facility] [place] PROCEDURESFinal Result * XR chest 1 view (03/21/2025 9:26 AM EDT)Anatomical RegionLateralityModality ChestComputed RadiographySpecimen (Source)Anatomical Location / Laterality Collection Method / VolumeCollection TimeReceived Time03/21/2025 9:26 AM EDT Impressions 03/21/2025 9:27 AM EDT * No acute abnormality. Electronically signed: Anthony Herman. Narrative 03/21/2025 9:27 AM EDT HISTORY: Fluid overload COMPARISON: None FINDINGS: AP upright view of the chest was performed. Cardiac silhouette is within normal limits. No airspace consolidation or vascular congestion. No pleural effusion or pneumothorax. Procedure Note Anthony Herman MD - 03/21/2025 HISTORY: Fluid overload COMPARISON: None FINDINGS: AP upright view of the chest was performed. Cardiac silhouetteis within normal limits. No airspace consolidation or vascular congestion.No pleural effusion or pneumothorax. IMPRESSION: *No acute abnormality. Electronically signed: Anthony Herman. Authorizing ProviderResult TypeResult StatusOmar Nadir MDIMG XR PROCEDURESFinal Result * COMPLETE ECHO (TTE) W/ IMAGING AGENT (03/21/2025 9:10 AM EDT)Anatomical Region LateralityModalityOtherSpecimen (Source)Anatomical Location / Laterality Collection Method / VolumeCollection TimeReceived Time03/21/2025 8:32 AM EDT Narrative 03/21/2025 12:08 PM EDT 1 1 [facility] Heart [facility] [address] [place] [address] [phone] (fax) Echocardiogram-[facility] Name: BRENT CAR Study Date: 03/21/2025 08:32 AM B/P: 121 mmHg/55 mmHg HR: 75 bpm Date of : 1950 Location: [facility] Height: 70 in. Age: 74 year(s) Patient Room: 3129 Weight: 228 lb. Gender: Male Patient Status: InPt BSA: 2.21 m2 Indication: Increased troponin, Hypertension, hyperlipidemia Examination: Echocardiogram (Complete), Lumason Contrast Image Quality: Poor sound transmission in apical views Patient Consent: Procedure explained to patient Exam Details Contrast: I.V. dose of Lumason Conclusions Left Ventricle: The left ventricle is moderately enlarged. Global left ventricular systolic function is severely reduced. The calculated Biplane EF is 28 %. The EF is 20 % visually. Left ventricular wall thickness is mildly increased. Regional wall motion abnormalities (see diagram). Grade 1, mild diastolic dysfunction (abnormal relaxation). Right Ventricle: The right ventricle is normal in size. Normal right ventricular systolic function. Unable to assess right sided pressures due to lack of measurable tricuspid regurgitation. Left Atrium: The left atrium is mildly enlarged. Aortic Valve: Trivial aortic valve regurgitation. Aorta: The aortic root exhibits mild dilatation. Overall Conclusions: Due to suboptimal imaging Lumason contrast was administered for opacification and better delineation of endocardial borders. No significant valvular abnormalities Measurements Left Ventricle Label Value Normal Value LVOTd 2.4 cm (19cm - 21cm) LVOT VTI 13.3 cm (18cm - 22cm) LVOT PGmax 3 mmHg LVEF visual 20 % LVDd, 2D 6.72 cm (4.2cm - 5.9cm) LVDs, 2D 5.78 cm (2.1cm - 4cm) IVSd, 2D 1.23 cm (0.6cm - 1.1cm) LVPWd, 2D 1.19 cm (0.6cm - 1cm) LVEF, BP 28 % (55% - 65%) LV Mass, 2D ASE 383.39 g LV Mass Index, 2D ASE 173.5 g/m?? (50g/m?? - 102.4g/m??) RWT, MM 0.35 (0 - 0.42) LVSVI, 2D 30.8 ml/m2 LVOT PGmean 1 mmHg LVSV_LVOT 60 ml Right Ventricle Label Value Normal Value RVDd, 2D 4.01 cm (1.9cm - 3.8cm) TAPSE 1.9 cm Left Atrium Label Value Normal Value LA Volume, BP 83 ml (18ml - 58ml) LADs, 2D 3 cm (3cm - 4cm) LAESV index, BP 37.6 ml/m?? Right Atrium Label Value Normal Value RA Area 18.5 cm?? Aortic Valve Label Value Normal Value AV DVI 0.68 AV VTI 22.1 cm Mitral Valve Label Value Normal Value MV E Vmax 0.49 m/s MV A Vmax 1.02 m/s MV E/A 0.48 MV E/E' lateral 10.5 MV E' lateral 0.05 m/s Aorta Label Value Normal Value AoRoot, 2D 4.1 cm (1.4cm - 3.8cm) Valvular Assessment LVOT 0.7 - 1.1 m/sec Aortic Valve 1.0 - 1.7 m/sec Mitral Valve 0.6 - 1.3 m/sec Tricuspid Valve 0.3 - 0.7 m/sec Pulmonic Valve 0.6 - 0.9 m/sec Regurgitation Trivial Trivial Trivial No Stenosis No No No No Max Velocity 0.79 m/sec 1.16 m/s 0.49 m/sec Max Gradient 5.00 mmHg Mean Gradient 3.00 mmHg Valve Area 3.1 cm?? Findings Left Ventricle: The left ventricle is moderately enlarged. Global left ventricular systolic function is severely reduced. The calculated Biplane EF is 28 %. The EF is 20 % visually. Left ventricular wall thickness is mildly increased. Regional wall motion abnormalities (see diagram). The basal anterior, basal inferoseptal, basal inferior, basal inferolateral, basal anterolateral, mid anterior, mid inferoseptal, mid inferior, mid inferolateral, mid anterolateral, apical anterior, apical inferior, apical lateral and apex left ventricular wall segments are hypokinetic. The basal anteroseptal, mid anteroseptal and apical septal left ventricular wall segments are akinetic. Grade 1, mild diastolic dysfunction (abnormal relaxation). Right Ventricle: The right ventricle is normal in size. Normal right ventricular systolic function. Unable to assess right sided pressures due to lack of measurable tricuspid regurgitation. Left Atrium: The left atrium is mildly enlarged. Right Atrium: The right atrium is mildly enlarged. Mitral Valve: There is nonspecific thickening of the mitral valve leaflet. Trivial mitral regurgitation. No mitral valve stenosis. Aortic Valve: Aortic valve is tri-leaflet. Trivial aortic valve regurgitation. No aortic valve stenosis. Aortic leaflets exhibit mild calcification. Tricuspid Valve: Normal tricuspid valve. Trivial tricuspid regurgitation. No tricuspid valve stenosis. Pulmonic Valve: Pulmonary valve appears normal. No pulmonary regurgitation. No pulmonic valve stenosis. Aorta: The aortic root exhibits mild dilatation. Great Vessels: IVC: Normal size and course of the IVC. Pericardium: No pericardial effusion. Procedure Staff Reading Group: [facility] Referring Physician: TOMEKA ROSADO [employer] Worker: MARK Castro ??Ordering Physician: SKYLAR MEJIA Wall Motion Scores -1 - hyperkinesia, 0 - not evaluated, 1 - normal, 2 - hypokinesia, 3 - akinesia, 4 - dyskinesia Procedure Note Megan Harrington MD - 03/21/2025 1 1 [facility] Heart Station [address], [place] [id number] (fax) Echocardiogram-[facility] Name: BRENT CAR Study Date: 03/21/2025 08:32 AM B/P: 121 mmHg/55 mmHg HR: 75 bpm Date of : 1950 Location: [facility] Height: 70 in. Age: 74 year(s) Patient Room: 3129 Weight: 228 lb. Gender: Male Patient Status: InPt BSA: 2.21 m2 Indication: Increased troponin, Hypertension, hyperlipidemia Examination: Echocardiogram (Complete), Lumason Contrast Image Quality: Poor sound transmission in apical views Patient Consent: Procedure explained to patient Exam Details Contrast: I.V. dose of Lumason Conclusions Left Ventricle: The left ventricle is moderately enlarged. Global left ventricular systolic function is severely reduced. The calculated Biplane EF is 28 %. The EF is 20 % visually. Left ventricular wall thickness is mildly increased. Regional wall motion abnormalities (see diagram). Grade 1, mild diastolic dysfunction (abnormal relaxation). Right Ventricle: The right ventricle is normal in size. Normal right ventricular systolic function. Unable to assess right sided pressures due to lack of measurable tricuspid regurgitation. Left Atrium: The left atrium is mildly enlarged. Aortic Valve: Trivial aortic valve regurgitation. Aorta: The aortic root exhibits mild dilatation. Overall Conclusions: Due to suboptimal imaging Lumason contrast was administered for opacification and better delineation of endocardial borders. No significant valvular abnormalities Measurements Left Ventricle Label Value Normal Value LVOTd 2.4 cm (19cm - 21cm) LVOT VTI 13.3 cm (18cm - 22cm) LVOT PGmax 3 mmHg LVEF visual 20 % LVDd, 2D 6.72 cm (4.2cm - 5.9cm) LVDs, 2D 5.78 cm (2.1cm - 4cm) IVSd, 2D 1.23 cm (0.6cm - 1.1cm) LVPWd, 2D 1.19 cm (0.6cm - 1cm) LVEF, BP 28 % (55% - 65%) LV Mass, 2D ASE 383.39 g LV Mass Index, 2D ASE 173.5 g/m?? (50g/m?? - 102.4g/m??) RWT, MM 0.35 (0 - 0.42) LVSVI, 2D 30.8 ml/m2 LVOT PGmean 1 mmHg LVSV_LVOT 60 ml Right Ventricle Label Value Normal Value RVDd, 2D 4.01 cm (1.9cm - 3.8cm) TAPSE 1.9 cm Left Atrium Label Value Normal Value LA Volume, BP 83 ml (18ml - 58ml) LADs, 2D 3 cm (3cm - 4cm) LAESV index, BP 37.6 ml/m?? Right Atrium Label Value Normal Value RA Area 18.5 cm?? Aortic Valve Label Value Normal Value AV DVI 0.68 AV VTI 22.1 cm Mitral Valve Label Value Normal Value MV E Vmax 0.49 m/s MV A Vmax 1.02 m/s MV E/A 0.48 MV E/E' lateral 10.5 MV E' lateral 0.05 m/s Aorta Label Value Normal Value AoRoot, 2D 4.1 cm (1.4cm - 3.8cm) Valvular Assessment LVOT 0.7 - 1.1 m/sec Aortic Valve 1.0 - 1.7 m/sec Mitral Valve 0.6 - 1.3 m/sec Tricuspid Valve 0.3 - 0.7 m/sec Pulmonic Valve 0.6 - 0.9 m/sec Regurgitation Trivial Trivial Trivial No Stenosis No No No No Max Velocity 0.79 m/sec 1.16 m/s 0.49 m/sec Max Gradient 5.00 mmHg Mean Gradient 3.00 mmHg Valve Area 3.1 cm?? Findings Left Ventricle: The left ventricle is moderately enlarged. Global left ventricular systolic function is severely reduced. The calculated Biplane EF is 28 %. The EF is 20 % visually. Left ventricular wall thickness is mildly increased. Regional wall motion abnormalities (see diagram). The basal anterior, basal inferoseptal, basal inferior, basal inferolateral, basal anterolateral, mid anterior, mid inferoseptal, mid inferior, mid inferolateral, mid anterolateral, apical anterior, apical inferior, apical lateral and apex left ventricular wall segments are hypokinetic. The basal anteroseptal, mid anteroseptal and apical septal left ventricular wall segments are akinetic. Grade 1, mild diastolic dysfunction (abnormal relaxation). Right Ventricle: The right ventricle is normal in size. Normal right ventricular systolic function. Unable to assess right sided pressures due to lack of measurable tricuspid regurgitation. Left Atrium: The left atrium is mildly enlarged. Right Atrium: The right atrium is mildly enlarged. Mitral Valve: There is nonspecific thickening of the mitral valve leaflet. Trivial mitral regurgitation. No mitral valve stenosis. Aortic Valve: Aortic valve is tri-leaflet. Trivial aortic valve regurgitation. No aortic valve stenosis. Aortic leaflets exhibit mild calcification. Tricuspid Valve: Normal tricuspid valve. Trivial tricuspid regurgitation. No tricuspid valve stenosis. Pulmonic Valve: Pulmonary valve appears normal. No pulmonary regurgitation. No pulmonic valve stenosis. Aorta: The aortic root exhibits mild dilatation. Great Vessels: IVC: Normal size and course of the IVC. Pericardium: No pericardial effusion. Procedure Staff Reading Group: [facility] Referring Physician: TOMEKA ROSADO [employer] Worker: Neelima Oliver [facility] Ordering Physician: SKYLAR MEJIA [employer] Scores -1 - hyperkinesia, 0 - not evaluated, 1 - normal, 2 - hypokinesia, 3 - akinesia, 4 - dyskinesia Authorizing ProviderResult TypeResult StatusMequirino Mejia CNP ECHO PROCEDURES Final Result * (ABNORMAL) POCT glucose meter (03/21/2025 7:25 AM EDT)ComponentValueRef Range Test MethodAnalysis TimePerformed AtPathologist SignatureGlucose NAZ418(H)70 - 105 mg/dL03/21/2025 7:36 AM [facility] ([facility])Comment:jarizme Specimen (Source)Anatomical Location / LateralityCollection Method / Volume Collection TimeReceived TimeBloodCapillary blood specimen / Vnuhsiw3203/21/2025 7:25 AM EDT1 7:36 AM EDT Narrative [facility] ([facility]) - 03/21/2025 7:36 AM EDT Waived Testing in the ED is performed under the ED CLIA certificate #[id number]. Authorizing ProviderResult TypeResult StatusSukhjinder BARBER BLOOD ORDERABLES Final ResultPerforming OrganizationAddressCity/State/ZIP CodePhone Number [facility] ([facility]) [address] [place] [address] * ECG 12 lead (03/21/2025 5:02 AM EDT)ComponentValueRef RangeTest MethodAnalysis TimePerformed AtPathologist SignatureVentricular Wbsd33WTRLC MUSEAtrial Rate 74BPMGE MUSEPR Hdrdvhgu181tsNR MUSEQRS LVIREFXP512thWM MUSEQT Euaiwkfg939spJW MUSEQTC CALCULATION(BAZETT)552msGE MUSEP Tzeb73ubacyeaPF MUSER-Rujh273ftaocfl GE MUSET [place]-12degreesGE MUSESpecimen (Source)Anatomical Location / LateralityCollection Method / VolumeCollection TimeReceived Time03/21/2025 3:07 AM EDT1 10:43 AM EDT Impressions GE MUSE - 03/22/2025 10:43 AM EDT Sinus rhythm with occasional Premature ventricular complexes Left bundle branch block Abnormal ECG When compared with ECG of 27-JUL-2023 07:48, Premature ventricular complexes are now Present Left bundle branch block is now Present Confirmed by Juany Duron ([id number]) on 03/22/2025 10:43:39 AM Narrative Procedure Note Tameka Catherine MD - 03/22/2025 IMPRESSION: Sinus rhythm with occasional Premature ventricular complexes Left bundle branch block Abnormal ECG When compared with ECG of 27-JUL-2023 07:48, Premature ventricular complexes are now Present Left bundle branch block is now Present Confirmed by Juany Duron ([id number]) on 03/22/2025 10:43:39 AM Authorizing ProviderResult TypeResult StatusSkylar LEALG ORDERABLESFinal ResultPerforming OrganizationAddressCity/State/ZIP CodePhone Number GE MUSE * (ABNORMAL) High Sensitivity Troponin I (03/21/2025 3:45 AM EDT)ComponentValue Ref RangeTest MethodAnalysis TimePerformed AtPathologist SignatureHigh Sensitivity Troponin I43(H)<20 ng/L1 4:57 AM [facility] ([facility])Specimen (Source)Anatomical Location / LateralityCollection Method / VolumeCollection TimeReceived TimeBloodVenous blood specimen / Unknown Venipuncture / Iktsttm5003/21/2025 3:45 AM EDT1 4:17 AM EDT Narrative Authorizing ProviderResult TypeResult StatusMeK[facility] BLOOD ORDERABLES Final ResultPerforming OrganizationAddressCity/State/ZIP CodePhone Number [facility] ([facility]) [address] [place] [address] * (ABNORMAL) CBC (03/21/2025 3:45 AM EDT)ComponentValueRef RangeTest Method Analysis TimePerformed AtPathologist SignatureAuto WBC9.594.00 - 10.60 10*3/uL 03/21/2025 4:34 AM [facility] ([facility])RBC5.024.20 - 5.70 10*6/uL 03/21/2025 4:34 AM [facility] ([facility])Mzkilbazow25.413.0 - 17.0 g/dL 03/21/2025 4:34 AM [facility] ([facility])Iokgbjtlzf85.039.0 - 50.0 % 03/21/2025 4:34 AM [facility] ([facility])MCV89.682.0 - 98.0 fL 03/21/2025 4:34 AM [facility] ([facility])MCH28.727.0 - 33.0 pg 03/21/2025 4:34 AM [facility] ([facility])MCHC32.032.0 - 35.0 g/dL 03/21/2025 4:34 AM [facility] ([facility])RDW15.8(H)11.5 - 15.0 % 03/21/2025 4:34 AM [facility] ([facility])Txkkwegjs962817 - 400 10*3/uL 03/21/2025 4:34 AM [facility] ([facility])Specimen (Source)Anatomical Location / LateralityCollection Method / VolumeCollection TimeReceived Time BloodVenous blood specimen / UnknownVenipuncture / Ravholk1003/21/2025 3:45 AM EDT1 4:16 AM EDT Narrative Authorizing ProviderResult TypeResult StatusMeSte[facility] CNPLAB BLOOD ORDERABLES Final ResultPerforming OrganizationAddressCity/State/ZIP CodePhone Number [facility] ([facility]ER) [address] [place] [address] * (ABNORMAL) Basic metabolic panel (03/21/2025 3:45 AM EDT)ComponentValueRef RangeTest MethodAnalysis TimePerformed AtPathologist MrrcggzkmGorjou511299 - 145 mmol/L1 4:52 AM [facility] ([facility])Potassium4.03.5 - 5.1 mmol/L1 4:52 AM [facility] ([facility])Sbrmocto94244 - 107 mmol/L1 4:52 AM [facility] ([facility])GT15360 - 31 mmol/L 03/21/2025 4:52 AM [facility] ([facility])BUN31(H)7 - 25 mg/dL03/21/2025 4:52 AM [facility] ([facility])Creatinine1.230.70 - 1.30 mg/dL 03/21/2025 4:52 AM [facility] ([facility])Llfoomf198(H)70 - 100 mg/dL 03/21/2025 4:52 AM [facility] ([facility])Calcium9.18.6 - 10.3 mg/dL 03/21/2025 4:52 AM [facility] ([facility])Anion Ack675 - 20 mmol/L 03/21/2025 4:52 AM [facility] ([facility])eGFR61.2>60.0 mL/min/1.73m*2 03/21/2025 4:52 AM [facility] ([facility])Comment:The [facility]???s estimated glomerular filtration rate (eGFR) will no longer include consideration of race in its calculation. The National Kidney Foundation???s eGFR Task Force developed new recommendations for the estimation of the glomerular filtration rate in the [place] They recommend immediate implementation of the new equation refit without the race variable in all laboratories because the calculation does not include race. In addition to not including race in the calculation and reporting, it included diversity in its development, and has acceptable performance characteristics and potential consequences that do not disproportionately affect any one group of individuals.BUN/Creatinine Ratio25. 4:52 AM [facility] ([facility])Specimen (Source)Anatomical Location / LateralityCollection Method / VolumeCollection TimeReceived TimeBloodVenous blood specimen / Unknown Venipuncture / Vfeltcf8703/21/2025 3:45 AM EDT1 4:17 AM EDT Narrative Authorizing ProviderResult TypeResult StatusBellevue Women'S Hospitalsharona [employer] BLOOD ORDERABLES Final ResultPerforming OrganizationAddressCity/State/ZIP CodePhone Number [facility] ([facility]) [address] [place] [address] * Anti-Xa (Heparin Level) (03/21/2025 2:09 AM EDT)ComponentValueRef RangeTest MethodAnalysis TimePerformed AtPathologist SignatureAnti-Xa (Heparin)0.450.3 - 0.7 IU/mL03/21/2025 3:10 AM [facility] ([facility])Comment:Rivaroxaban and Apixaban will interfere with the anti Xa assay used to monitor UFH and LMWH.Specimen (Source)Anatomical Location / LateralityCollection Method / VolumeCollection TimeReceived TimeBloodVenous blood specimen / Unknown Venipuncture / Pnhvkho0503/21/2025 2:09 AM EDT1 2:15 AM EDT Narrative Authorizing ProviderResult TypeResult StatusCaExt[employer] BLOOD ORDERABLES Final ResultPerforming OrganizationAddressCity/State/ZIP CodePhone Number [facility]) [address] [place] [address] * aPTT - baseline (03/21/2025 2:09 AM EDT)ComponentValueRef RangeTest Method Analysis TimePerformed AtPathologist NrvkfxrxjvUUB82.425.0 - 35.0 Seconds 03/21/2025 3:09 AM [facility] ([facility])Comment:Clinical significance of the APTT is questionable in the presence of heparin.Specimen (Source) Anatomical Location / LateralityCollection Method / VolumeCollection Time Received TimeBloodVenous blood specimen / UnknownVenipuncture / Unknown 03/21/2025 2:09 AM EDT1 2:15 AM EDT Narrative Authorizing ProviderResult TypeResult StatusBellevue Women'S Hospitalsharona [facility] CenterResonant Inc BLOOD ORDERABLES Final ResultPerforming OrganizationAddressCity/State/ZIP CodePhone Number [facility] ([facility]) [address] [place] [address] * (ABNORMAL) B-type natriuretic peptide (03/21/2025 2:09 AM EDT)ComponentValue Ref RangeTest MethodAnalysis TimePerformed AtPathologist OwlflbiswNAR380(H)0 - 100 pg/mL03/21/2025 2:50 AM [facility] ([facility])Specimen (Source) Anatomical Location / LateralityCollection Method / VolumeCollection Time Received TimeBloodVenous blood specimen / UnknownVenipuncture / Unknown 03/21/2025 2:09 AM EDT1 2:20 AM EDT Narrative Authorizing ProviderResult TypeResult StatusBellevue [facility] Hospit[facility] BLOOD ORDERABLES Final ResultPerforming OrganizationAddressCity/State/ZIP CodePhone Number [facility] ([facility]) [address] [place] [address] * (ABNORMAL) CBC auto differential (03/21/2025 2:09 AM EDT)ComponentValueRef RangeTest MethodAnalysis TimePerformed AtPathologist SignatureAuto WBC11.08(H) 4.00 - 10.60 10*3/uL03/21/2025 2:34 AM [facility] ([facility])RBC5.20 4.20 - 5.70 10*6/uL03/21/2025 2:34 AM [facility] ([facility])Hemoglobin 14.913.0 - 17.0 g/dL03/21/2025 2:34 AM [facility] ([facility])Hematocrit 45.839.0 - 50.0 %03/21/2025 2:34 AM [facility] ([facility])MCV88.182.0 - 98.0 fL03/21/2025 2:34 AM [facility] ([facility])MCH28.727.0 - 33.0 pg 03/21/2025 2:34 AM [facility] ([facility])MCHC32.532.0 - 35.0 g/dL 03/21/2025 2:34 AM [facility] ([facility])RDW15.9(H)11.5 - 15.0 % 03/21/2025 2:34 AM [facility] ([facility])Neutrophils %72.8(H)40.0 - 72.0 %03/21/2025 2:34 AM [facility] ([facility])Lymphocytes %16.7(L)20.0 - 45.0 %03/21/2025 2:34 AM [facility] ([facility])Monocytes %8.65.0 - 12.0 %03/21/2025 2:34 AM [facility] ([facility])Eosinophils %1.10.0 - 6.0 %03/21/2025 2:34 AM [facility] ([facility])Basophils %0.40.0 - 1.0 % 03/21/2025 2:34 AM [facility] ([facility])Neutrophils Absolute8.08(H) 1.60 - 7.60 10*3/uL03/21/2025 2:34 AM [facility] ([facility])Lymphocytes Absolute1.851.20 - 4.00 10*3/uL03/21/2025 2:34 AM [facility] ([facility])Monocytes Absolute0.950.10 - 1.00 10*3/uL03/21/2025 2:34 AM [facility] ([facility])Eosinophils Absolute0.120.00 - 0.50 10*3/uL10/12/2024 2:34 AM [facility] ([facility])Basophils Absolute0.040.00 - 0.20 10*3/uL 03/21/2025 2:34 AM [facility] ([facility])Sexxhigbc438(H)150 - 400 10*3/uL03/21/2025 2:34 AM [facility] ([facility])nRBC %0.00 %03/21/2025 2:34 AM [facility] ([facility])Immature Granulocytes %0.40.0 - 1.0 % 03/21/2025 2:34 AM [facility] ([facility])Immature Granulocytes Absolute 0.040.00 - 0.20 10*3/uL03/21/2025 2:34 AM [facility] ([facility]) Specimen (Source)Anatomical Location / LateralityCollection Method / Volume Collection TimeReceived TimeBloodVenous blood specimen / UnknownVenipuncture / Bbbutcy0003/21/2025 2:09 AM EDT1 2:20 AM EDT Narrative Authorizing ProviderResult TypeResult StatusMeK[facility] BLOOD ORDERABLES Final ResultPerforming OrganizationAddressCity/State/ZIP CodePhone Number [facility]) [address] [place] [address] * Protime-INR (03/21/2025 2:09 AM EDT)ComponentValueRef RangeTest MethodAnalysis TimePerformed AtPathologist HsfjxyppaMnuryhq48.412.3 - 14.8 Plputtr5303/21/2025 2:42 AM [facility] ([facility])INR1.020.90 - 1.101 2:42 AM EDT [facility])Comment: ACCCP RECOMMENDED INR FOR WARFARIN THERAPY CONDITION ?INR PROPHYLAXIS OF VENOUS THROMBOSIS ? 2-3 (HIGH-RISK SURGERY) TREATMENT OF VENOUS THROMBOSIS ? 2-3 TREATMENT OF PULMONARY EMBOLISM ?2-3 PREVENTION OF SYSTEMIC EMBOLISM: ? 2-3 ?ACUTE MYOCARDIAL INFARCTION ?TISSUE HEART VALVES ?VALVULAR HEART DISEASE ?ATRIAL FIBRILLATION ?RECURRENT SYSTEMIC EMBOLISM MECHANICAL HEART VALVE ? 2.5-3.5 FROM: ORAL ANTICOAGULANTS. ??MECHANISM OF ACTION, CLINICAL EFFECTIVENESS, AND OPTIMAL THERAPEUTIC RANGE. ??CHEST 1995;108:231S-246S. Specimen (Source)Anatomical Location / LateralityCollection Method / Volume Collection TimeReceived TimeBloodVenous blood specimen / UnknownVenipuncture / Wzcixho9403/21/2025 2:09 AM EDT1 2:15 AM EDT Narrative Authorizing ProviderResult TypeResult StatusMeghan [facility] CNPLAB BLOOD ORDERABLES Final ResultPerforming OrganizationAddressCity/State/ZIP CodePhone Number [facility] ([facility]) [address] [place] [address] * (ABNORMAL) HIGH SENSITIVITY TROPONIN I (03/21/2025 2:09 AM EDT)ComponentValue Ref RangeTest MethodAnalysis TimePerformed AtPathologist SignatureHigh Sensitivity Troponin I43(H)<20 ng/L1 2:51 AM EDTNEW [facility] ([facility])Specimen (Source)Anatomical Location / LateralityCollection Method / VolumeCollection TimeReceived TimeBloodVenous blood specimen / Unknown Venipuncture / Jimigsf4303/21/2025 2:09 AM EDT1 2:20 AM EDT Narrative Authorizing ProviderResult TypeResult StatusSkylar [facility] B[facility] ORDERABLES Final ResultPerforming OrganizationAddressCity/State/ZIP CodePhone Number [address] [address] * Phosphorus (03/21/2025 2:09 AM EDT)ComponentValueRef RangeTest MethodAnalysis TimePerformed AtPathologist SignaturePhosphorus3.62.5 - 5.0 mg/dL03/21/2025 2:46 AM [facility])Specimen (Source)Anatomical Location / LateralityCollection Method / VolumeCollection TimeReceived TimeBloodVenous blood specimen / UnknownVenipuncture / Clwpkol3403/21/2025 2:09 AM EDT1 2:20 AM EDT Narrative Authorizing ProviderResult TypeResult Statussharona [facility] BLOOD ORDERABLES Final ResultPerforming OrganizationAddressCity/State/ZIP CodePhone Number [address] [address] * Magnesium (03/21/2025 2:09 AM EDT)ComponentValueRef RangeTest MethodAnalysis TimePerformed AtPathologist SignatureMagnesium2.11.9 - 2.7 mg/dL03/21/2025 2:46 AM [facility])Specimen (Source)Anatomical Location / LateralityCollection Method / VolumeCollection TimeReceived TimeBloodVenous blood specimen / UnknownVenipuncture / Ohwmeyt4303/21/2025 2:09 AM EDT1 2:20 AM EDT Narrative Authorizing ProviderResult TypeResult StatusBellevue Women'S Hospitalsharona [facility] BLOOD ORDERABLES Final ResultPerforming OrganizationAddressCity/State/ZIP CodePhone Number [facility]) [address] [place] [phone] * (ABNORMAL) Comprehensive metabolic panel (03/21/2025 2:09 AM EDT)Component ValueRef RangeTest MethodAnalysis TimePerformed AtPathologist SignatureSodium 864071 - 145 mmol/L1 2:46 AM [facility] ([facility])Potassium 4.23.5 - 5.1 mmol/L1 2:46 AM [facility] ([facility])Zmjopzil242 98 - 107 mmol/L1 2:46 AM [facility] ([facility])CE39524 - 31 mmol/L1 2:46 AM [facility] ([facility])Anion Ljq217 - 20 mmol/L 03/21/2025 2:46 AM [facility] ([facility])BUN31(H)7 - 25 mg/dL03/21/2025 2:46 AM [facility] ([facility])Creatinine1.33(H)0.70 - 1.30 mg/dL 03/21/2025 2:46 AM [facility] ([facility])BUN/Creatinine Ratio23.3 03/21/2025 2:46 AM [facility] ([facility])Nxgojkk907(H)70 - 100 mg/dL 03/21/2025 2:46 AM [facility] ([facility])Calcium9.48.6 - 10.3 mg/dL 03/21/2025 2:46 AM [facility] ([facility])OTO2597 - 39 U/L1 2:46 AM [facility] ([facility])ALT (SGPT)97 - 52 U/L1 2:46 AM [facility] ([facility])Alkaline Uroehzlacxd16453 - 104 U/L1 2:46 AM [facility] ([facility])Total Protein7.06.0 - 8.3 g/dL03/21/2025 2:46 AM [facility] ([facility])Albumin4.33.5 - 5.7 g/dL03/21/2025 2:46 AM [facility] ([facility])Total Bilirubin0.60.3 - 1.0 mg/dL03/21/2025 2:46 AM [facility] ([facility])eGFR55.7(L)>60.0 mL/min/1.73m* 2:46 AM [facility])Comment:The [facility]???s estimated glomerular filtration rate (eGFR) will no longer include consideration of race in its calculation. The National Kidney Foundation???s eGFR Task Force developed new recommendations for the estimation of the glomerular filtration rate in the [place] They recommend immediate implementation of the new equation refit without the race variable in all laboratories because the calculation does not include race. In addition to not including race in the calculation and reporting, it included diversity in its development, and has acceptable performance characteristics and potential consequences that do not disproportionately affect any one group of ind ividuals.Specimen (Source)Anatomical Location / LateralityCollection Method / VolumeCollection TimeReceived TimeBloodVenous blood specimen / Unknown Venipuncture / Fkvkesu0803/21/2025 2:09 AM EDT1 2:20 AM EDT Narrative Authorizing ProviderResult TypeResult StatusMesharona [facility] CNPLAB BLOOD ORDERABLES Final ResultPerforming OrganizationAddressCity/State/ZIP CodePhone Number [facility] ([facility]) [address] [place] [address] documented in this encounter Visit Diagnoses Diagnosis Elevated troponin- Primary Other abnormal blood chemistry Elevated troponin Other abnormal blood chemistry NSVT (nonsustained ventricular tachycardia) (CMS/HCC) Atrial tachycardia, paroxysmal Mixed hyperlipidemia Primary hypertension Unspecified essential hypertension 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CMS/HCC) Other malignant neoplasm of unspecified site Type 2 diabetes mellitus without complication, without long-term current use of insulin (CMS/HCC) CKD stage 3a, GFR 45-59 ml/min (CMS/HCC) Adrenal adenoma, left Fluid overload Other chest pain Elevated troponin Other abnormal blood chemistry documented in this encounter Admitting Diagnoses Diagnosis Elevated troponin Other abnormal blood chemistry documented in this encounter Administered Medications Medication OrderMAR ActionAction DateDoseRateSite acetaminophen (Tylenol) tablet 650 mg 650 mg, oral, Every 6 hours PRN, mild pain (1-3 pain score), (1-3), Starting on Thu03/21/25 at 0256, For 99 days aspirin chewable tablet 81 mg 81 mg, oral, Daily with breakfast, First dose on Thu03/21/25 at 0800, For 99 days Given03/22/2025 9:05 AM EDT81 mg bisoprolol (Zebeta) tablet 5 mg 5 mg, oral, 2 times daily, First dose on Thu03/21/25 at 0315, For 99 days Given03/22/2025 9:06 AM EDT5 fdXound1003/21/2025 9:59 PM EDT5 vhQbirf4903/21/2025 1:00 PM EDT5 mg dapagliflozin propanediol (Farxiga) tablet 10 mg 10 mg, oral, Daily, First dose on Thu03/21/25 at 1300, For 99 days, Indications: heart failure Indications:heart nvyrdtuVvedi53/08/2025 9:06 AM EDT10 lmAxnko7903/21/2025 1:00 PM EDT10 mg dextrose 50 % in water (D50W) syringe 25 g 25 g, intravenous, Every 15 min PRN, capillary blood glucose < 70 mg/dL and patient unable to take oral and has IV access, Starting on Thu03/21/25 at 1720, For 99 days, - Recheck blood glucose 5 minutes after dextrose administration. - Repeat treatment as ordered until blood glucose is greater than or equal to 80 mg/dL. - Provide a snack/meal within 1 hour after correction of hypoglycemia if not NPO. - If patient NPO or on enteral tube feeds, contact physician for potential additional interventions(s) (i.e. 5% or 10% dextrose IV fluids or tube feeding bolus) glucose chewable tablet 24 g 24 g, oral, Every 15 min PRN, capillary blood glucose < 70 mg/dL and patient alert and eating, Starting on Thu03/21/25 at 1720, For 99 days, - Recheck blood glucose 5 minutes after dextrose administration. - Repeat treatment as ordered until blood glucose is greater than or equal to 80 mg/dL. - Provide a snack/meal within 1 hour after correction of hypoglycemia if not NPO. - If patient NPO or on enteral tube feeds, contact physician for potential additional interventions(s) (i.e. 5% or 10% dextrose IV fluids or tube feeding bolus) heparin infusion 100 units/mL in D5W 0-28 Units/kg/hr ?? 103 kg (0-28.84 mL/hr, rounded to 0-28.8 mL/hr), intravenous, Continuous, Starting on Thu03/21/25 at 0300, For 99 days, Cardiac/Stroke protocol - Monitor antiXa level 6 hours after rate change, then every 6 hours until therapeutic twice. While therapeutic monitor every AM., Initial Heparin rate (units/kg/hr): 15, Anti-Xa < 0.20 Maintenance Dose Adjustment (units/kg/hr): 2, Anti-Xa < 0.20 Bolus Dose (units/kg): 0, Anti-Xa 0.2-0.29 Heparin Maintenance Dose Adjustment (units/kg/hr): 1, Anti-Xa 0.3-0.7 Maintenance Dose Adjustment (units/kg/hr): 0, Anti-Xa 0.71-0.8 Maintenance Dose Adjustment (units/kg/hr): -1, Anti-Xa 0.81-0.99 Maintenance Dose Adjustment (units/kg/hr): -2, Anti-Xa 1.00 or greater = Maintenance Dose Adjustment (units/kg/hr): -2, Anti-Xa 1.0 or greater = Bolus Dose (units/kg): 0, Anti-Xa 1.0 or greater = adjust current infusion: Hold infusion for 1 hour, then restart at 2 units/kg/hr below current dose., Indication: Cardiac/Stroke New Bag03/21/2025 3:17 AM EDT15 Units/kg/hr15.5 mL/hr insulin lispro (HumaLOG) injection 0-10 Units 0-10 Units, subcutaneous, 3 times daily with meals, First dose on Thu03/21/25 at 1730, For 99 days,BG less than 110 instructions: Hold Insulin. If BG less than 70, implement hypoglycemia orders., [id number]: 0, BG 151-200: 2, BG 201-250: 4, BG 251-300: 6, BG 301-350: 8, BG 351-400: 10, BG greater than 400 instructions: Call Physician Given03/22/2025 11:11 AM EDT2 UnitsLeft Upper Arm (Back)Given03/21/2025 5:30 PM EDT2 UnitsRight Upper Arm (Back) insulin lispro (HumaLOG) injection 0-8 Units 0-8 Units, subcutaneous, Nightly, First dose on Thu03/21/25 at 2200, For 99 days, BG less than 110 instructions: Hold Insulin. If BG less than 70, implement hypoglycemia orders, BG 110-150: 0, BG 151-200: 0, BG 201-250: 2, BG 251-300: 4, BG 301-350: 6, BG 351-400: 8, BG greater than 400 instructions: Call Physician losartan (Cozaar) tablet 100 mg 100 mg, oral, Daily, First dose on Thu03/21/25 at 1000, For 99 days Given03/22/2025 9:06 AM TPT121 [id number]/21/2025 1:00 PM BAM260 mg melatonin tablet 5 mg 5 mg, oral, Nightly PRN, sleep, Starting on Thu03/21/25 at 0256, For 99 days pantoprazole (ProtoNix) EC tablet 40 mg 40 mg, oral, Daily at 7am, First dose on Thu03/21/25 at 0700, Do not crush, chew, or split., Indication: GERD Given03/22/2025 6:02 AM EDT40 mg rosuvastatin (Crestor) tablet 20 mg 20 mg, oral, Every morning, First dose on Thu03/21/25 at 1000, For 99 days Given03/22/2025 9:06 AM EDT20 zaMrsqy7403/21/2025 1:00 PM EDT20 mg spironolactone (Aldactone) tablet 25 mg 25 mg, oral, Daily, First dose on Thu03/21/25 at 1400, For 99 days Given03/22/2025 9:06 AM EDT25 bkConzj4903/21/2025 1:49 PM EDT25 mg sulfur hexafluoride microsphr (Lumason) injection 24.28 mg 24.28 mg (2 mL), intravenous, Once in imaging, Starting on Thu03/21/25 at 0910, For 1 dose Given03/21/2025 9:11 AM EDT24.28 mg tamsulosin (Flomax) 24 hr capsule 0.4 mg 0.4 mg, oral, Every evening, First dose on Thu03/21/25 at 2000, For 99 days, Do not crush, chew, orsplit. Given03/21/2025 9:59 PM EDT0.4 mgdocumented in this encounter Active and Recently Administered Medications Times are shown in EDT.Medication Order10/06//01/2025 aspirin chewable tablet 81 mg 81 mg, oral, Daily with breakfast, First dose on Thu03/21/25 at 0800, For 99 days * 0800 (Not Given - Provider: Rayna Mckeon RN - Reason: Patient not available - Comment: 325 mg given in chemical laboratory assistant) * 0905 (Given - Provider: Denny Lester, ALONSO) bisoprolol (Zebeta) tablet 5 mg 5 mg, oral, 2 times daily, First dose on Thu03/21/25 at 0315, For 99 days * 0315 (Not Given - Provider: Ashley López RN - Reason: Other - Comment: pt states that he took his evening dose already before admission) * 1300 (Given - Provider: Rayna Mckeon RN) * 2159 (Given - Provider: Ashley López RN) * 0906 (Given - Provider: Denny Lester RN) dapagliflozin propanediol (Farxiga) tablet 10 mg 10 mg, oral, Daily, First dose on Thu03/21/25 at 1300, For 99 days, Indications: heart failure * 1300 (Given - Provider: Rayna Mckeon RN) * 0906 (Given - Provider: Denny Lester RN) insulin lispro (HumaLOG) injection 0-10 Units(Linked Group 1) 0-10 Units, subcutaneous, 3 times daily with meals, First dose on Thu03/21/25 at 1730, For 99 days,BG less than 110 instructions: Hold Insulin. If BG less than 70, implement hypoglycemia orders., [id number]: 0, BG 151-200: 2, BG 201-250: 4, BG 251-300: 6, BG 301-350: 8, BG 351-400: 10, BG greater than 400 instructions: Call Physician * 1730 (Given - Provider: Rayna Mckeon RN) * 0800 (Not Given - Provider: Denny Lester RN - Reason: Order parameters not met) * 1111 (Given - Provider: Denny Lester, ALONSO) insulin lispro (HumaLOG) injection 0-8 Units(Linked Group 1) 0-8 Units, subcutaneous, Nightly, First dose on Thu03/21/25 at 2200, For 99 days, BG less than 110 instructions: Hold Insulin. If BG less than 70, implement hypoglycemia orders, BG 110-150: 0, BG 151-200: 0, BG 201-250: 2, BG 251-300: 4, BG 301-350: 6, BG 351-400: 8, BG greater than 400 instructions: Call Physician * 2200 (Not Given - Provider: Ashley López RN - Reason: Order parameters not met) losartan (Cozaar) tablet 100 mg 100 mg, oral, Daily, First dose on Thu03/21/25 at 1000, For 99 days * 1300 (Given - Provider: Rayna Mckeon RN) * 0906 (Given - Provider: Denny Lester RN) pantoprazole (ProtoNix) EC tablet 40 mg 40 mg, oral, Daily at 7am, First dose on Thu03/21/25 at 0700, Do not crush, chew, or split., Indication: GERD * 0700 (Not Given - Provider: Ashley López RN - Reason: NPO) * 0602 (Given - Provider: Ashley López RN) rosuvastatin (Crestor) tablet 20 mg 20 mg, oral, Every morning, First dose on Thu03/21/25 at 1000, For 99 days * 1300 (Given - Provider: Rayna Mckeon RN) * 0906 (Given - Provider: Denny Lester RN) spironolactone (Aldactone) tablet 25 mg 25 mg, oral, Daily, First dose on Thu03/21/25 at 1400, For 99 days * 1349 (Given - Provider: Rayna Mckeon RN) * 0906 (Given - Provider: Denny Lester RN) sulfur hexafluoride microsphr (Lumason) injection 24.28 mg (COMPLETED) 24.28 mg (2 mL), intravenous, Once in imaging, Starting on Thu03/21/25 at 0910, For 1 dose * 0911 (Given - Provider: Neelima Oliver, RT) tamsulosin (Flomax) 24 hr capsule 0.4 mg 0.4 mg, oral, Every evening, First dose on Thu03/21/25 at 2000, For 99 days, Do not crush, chew, orsplit. * 2159 (Given - Provider: Ashley López RN) Medication Order/ heparin infusion 100 units/mL in D5W (CANCELED) 0-28 Units/kg/hr ?? 103 kg (0-28.84 mL/hr, rounded to 0-28.8 mL/hr), intravenous, Continuous, Starting on Thu03/21/25 at 0300, For 99 days, Cardiac/Stroke protocol - Monitor antiXa level 6 hours after rate change, then every 6 hours until therapeutic twice. While therapeutic monitor every AM., Initial Heparin rate (units/kg/hr): 15, Anti-Xa < 0.20 Maintenance Dose Adjustment (units/kg/hr): 2, Anti-Xa < 0.20 Bolus Dose (units/kg): 0, Anti-Xa 0.2-0.29 Heparin Maintenance Dose Adjustment (units/kg/hr): 1, Anti-Xa 0.3-0.7 Maintenance Dose Adjustment (units/kg/hr): 0, Anti-Xa 0.71-0.8 Maintenance Dose Adjustment (units/kg/hr): -1, Anti-Xa 0.81-0.99 Maintenance Dose Adjustment (units/kg/hr): -2, Anti-Xa 1.00 or greater = Maintenance Dose Adjustment (units/kg/hr): -2, Anti-Xa 1.0 or greater = Bolus Dose (units/kg): 0, Anti-Xa 1.0 or greater = adjust current infusion: Hold infusion for 1 hour, then restart at 2 units/kg/hr below current dose., Indication: Cardiac/Stroke * 0317 (New Bag - Provider: Ashley López RN) * 0707 (Handoff - Provider: Ashley López RN) * 1214 (Stopped - Provider: Rayna Mckeon RN - Comment: [Order ends at this time. Document the following action when infusion is complete: Stopped]) Medication Order/ acetaminophen (Tylenol) tablet 650 mg 650 mg, oral, Every 6 hours PRN, mild pain (1-3 pain score), (1-3), Starting on Thu03/21/25 at 0256, For 99 days aspirin tablet (CANCELED) As needed, Starting on Thu03/21/25 at 1042, Intraprocedure * 1042 (Given - Provider: Darrion Mendez RN) dextrose 50 % in water (D50W) syringe 25 g(Linked Group 2) 25 g, intravenous, Every 15 min PRN, capillary blood glucose < 70 mg/dL and patient unable to take oral and has IV access, Starting on Thu03/21/25 at 1720, For 99 days, - Recheck blood glucose 5 minutes after dextrose administration. - Repeat treatment as ordered until blood glucose is greater than or equal to 80 mg/dL. - Provide a snack/meal within 1 hour after correction of hypoglycemia if not NPO. - If patient NPO or on enteral tube feeds, contact physician for potential additional interventions(s) (i.e. 5% or 10% dextrose IV fluids or tube feeding bolus) fentaNYL (Sublimaze) injection (CANCELED) As needed, Starting on Thu03/21/25 at 1058, Intraprocedure * 1058 (Given - Provider: Darrion Mendez RN) * 1117 (Given - Provider: Darrion Mendez RN) glucose chewable tablet 24 g(Linked Group 2) 24 g, oral, Every 15 min PRN, capillary blood glucose < 70 mg/dL and patient alert and eating, Starting on Thu03/21/25 at 1720, For 99 days, - Recheck blood glucose 5 minutes after dextrose administration. - Repeat treatment as ordered until blood glucose is greater than or equal to 80 mg/dL. - Provide a snack/meal within 1 hour after correction of hypoglycemia if not NPO. - If patient NPO or o n enteral tube feeds, contact physician for potential additional interventions(s) (i.e. 5% or 10% dextrose IV fluids or tube feeding bolus) heparin (porcine) injection (CANCELED) As needed, Starting on Thu03/21/25 at 1109, Intraprocedure * 1109 (Given - Provider: Darrion Mendez RN) heparin irrigation 2 units/mL in NS (CANCELED) As needed, Starting on Thu03/21/25 at 1042, Intraprocedure * 1042 (Given - Provider: Jai Subramanian MD) iodixanol (VISIPaque) 320 mg iodine/mL injection (CANCELED) As needed, Starting on Thu03/21/25 at 1127, Intraprocedure * 1127 (Given - Provider: Jai Subramanian MD) lidocaine (PF) (Xylocaine) 10 mg/mL (1 %) injection (CANCELED) As needed, Starting on Thu03/21/25 at 1042, Intraprocedure * 1042 (Given - Provider: Jai Subramanian MD) melatonin tablet 5 mg 5 mg, oral, Nightly PRN, sleep, Starting on Thu03/21/25 at 0256, For 99 days midazolam (Versed) injection (CANCELED) As needed, Starting on Thu03/21/25 at 1058, Intraprocedure * 1058 (Given - Provider: Darrion Mendez, ALONSO) * 1117 (Given - Provider: Darrion Mendez, RN) sodium chloride 0.9 % infusion (COMPLETED) Continuous PRN, Starting on Thu03/21/25 at 1042, Intraprocedure * 1042 (New Bag - Provider: Darrion Mendez, RN) * 1230 (Stopped - Provider: Rayna Mckeon RN - Comment: Not running when returned to the unit) Order Group 1: insulin lispro (HumaLOG) injection 0-10 UnitsJump to med 0-10 Units, subcutaneous, 3 times daily with meals, First dose on Thu03/21/25 at 1730, For 99 days,BG less than 110 instructions: Hold Insulin. If BG less than 70, implement hypoglycemia orders., [id number]: 0, BG 151-200: 2, BG 201-250: 4, BG 251-300: 6, BG 301-350: 8, BG 351-400: 10, BG greater than 400 instructions: Call Physician And insulin lispro (HumaLOG) injection 0-8 UnitsJump to med 0-8 Units, subcutaneous, Nightly, First dose on Thu03/21/25 at 2200, For 99 days, BG less than 110 instructions: Hold Insulin. If BG less than 70, implement hypoglycemia orders, BG 110-150: 0, BG 151-200: 0, BG 201-250: 2, BG 251-300: 4, BG 301-350: 6, BG 351-400: 8, BG greater than 400 instructions: Call Physician Group 2: glucose chewable tablet 24 gJump to med 24 g, oral, Every 15 min PRN, capillary blood glucose < 70 mg/dL and patient alert and eating, Starting on Thu03/21/25 at 1720, For 99 days, - Recheck blood glucose 5 minutes after dextrose administration. - Repeat treatment as ordered until blood glucose is greater than or equal to 80 mg/dL. - Provide a snack/meal within 1 hour after correction of hypoglycemia if not NPO. - If patient NPO or o n enteral tube feeds, contact physician for potential additional interventions(s) (i.e. 5% or 10% dextrose IV fluids or tube feeding bolus) Or dextrose 50 % in water (D50W) syringe 25 gJump to med 25 g, intravenous, Every 15 min PRN, capillary blood glucose < 70 mg/dL and patient unable to take oral and has IV access, Starting on Thu03/21/25 at 1720, For 99 days, - Recheck blood glucose 5 minutes after dextrose administration. - Repeat treatment as ordered until blood glucose is greater than or equal to 80 mg/dL. - Provide a snack/meal within 1 hour after correction of hypoglycemia if not NPO. - If patient NPO or on enteral tube feeds, contact physician for potential additional interventions(s) (i.e. 5% or 10% dextrose IV fluids or tube feeding bolus) documented in this encounter Care Teams Team MemberRelationshipSpecialtyStart DateEnd Date Tomeka Rosado MD [address] [place] [address] PCP - GeneralNurse Practitioner11/22/24documented as of this encounter
--- OUTSIDE RECORDS SUMMARY | 2025-03-21 18:00 | XMS_ITS | Encounter Summary ---
Author Organization [facility] Address [address] [place] [address] Care Team Providers Care Medical Insurance Biller Name Role Phone Tomeka Rosado MD Primary Care Provider [phone] Reason for Visit * Auth/Cert (Routine)SpecialtyDiagnoses / ProceduresReferred By ContactReferred To Contact Diagnoses Elevated troponin NSTEMI Procedures NO CODED SERVICE Sukhjinder Schmitz MD [address] [place] [address] Phone: tel: fax: [facility] [address] [place] [address] Phone: tel: fax: Referral IDStatusReasonStart DateExpiration DateVisits RequestedVisits [id number] Encounter Details DateTypeDepartmentCare Team (Latest Contact Info)Kottwuquiea42/07/2025 6:00 PM EDT - 03/21/2025 8:00 PM EDTSurgery [facility] [address] [place] [address] Jai Subramanian MD [address] [facility] [place] [address] Coronary angiography Social History Tobacco UseTypesPacks/DayYears UsedDateSmoking Tobacco: SjxoayPqfctmpeby563.9 10/14/1967 - 09/14/1983Smokeless Tobacco: NeverAlcohol UseStandard Drinks/Week CommentsNot Currently0 (1 standard drink = 0.6 oz pure alcohol)I rarely drink. [facility] UtilitiesAnswerDate RecordedIn the past 12 months has the electric, gas, oil, or water company threatened to shut off services in your [...] were you homeless or living in a longterm (including now)?No 03/21/2025Hunger Vital SignAnswerDate RecordedWithin the past 12 months, you worried that your food would run out before you got the money to buymore.Never true03/21/2025Ran Out of Food in the Last YearNot on file03/21/2025Sex and Gender InformationValueDate RecordedSex Assigned at TtccyBcct71/13/2024 6:49 AM ESTLegal CquIxqo9812/12/2021 12:14 AM EDTGender WbftpuplGdys31/13/2024 6:49 AM EST Sexual OrientationHeterosexual or Xkdowjtx13/13/2024 6:49 AM ESTdocumented as of this encounter Last Filed Vital Signs Vital SignReadingTime TakenCommentsBlood Fawytbqt431/7503/21/2025 8:00 PM EDT Fmsoc765303/21/2025 8:00 PM GYRCtxenlwxmke64.2 ??C (97.2 ??F)03/21/2025 8:00 PM EDTRespiratory Xgrr4917 7:00 PM EDTOxygen Dyjspfyvcj63%03/21/2025 8:00 PM EDTInhaled Oxygen Concentration--Nxfuda244 kg (228 lb)03/21/2025 1:40 AM EDT Oniglh502.8 cm (5' 10 )03/21/2025 1:40 AM EDTBody Mass Index32.4903/21/2025 1:40 AM EDTdocumented in this encounter Functional Status * QuestionAnswerDate of OtcutknnjqCsdtfhSB106/7503/21/2025 8:00 PM Ashley Goldstein RNPulse7203/21/2025 8:00 PM Ashley Goldstein RNHeart Rate Source Eemldav8703/21/2025 8:00 PM Ashley Goldstein RNPatient PositionLying 03/21/2025 8:00 PM Ashley Goldstein RN * Gladis Fall RiskQuestionAnswerDate of AssessmentAuthorHistory of Falling, Immediate or Within 3 Fbzeyc254 8:00 PM Ashley Goldstein RN Secondary Dfemzqfvu2493/07/2025 8:00 PM Ashley Goldstein RNAmbulatory Aid0 03/21/2025 8:00 PM Ashley Goldstein RNIntravenous Therapy/Heparin Lock20 03/21/2025 8:00 PM Ashley Goldstein RNGait/Ygpoapgfkwov941/07/2025 8:00 PM Ashley Goldstein RNMental Iojqra618/07/2025 8:00 PM Ashley Goldstein RN Morse Fall Risk Rmgln118003/21/2025 8:00 PM Ashley Goldstein RN * Amari ScaleQuestionAnswerDate of AssessmentAuthorBraden No Risk Interventions Continue to assess patient according to level of care03/21/2025 8:00 PM Ashley Ferreira, RNSensory Yrwxifymrxs682/07/2025 8:00 PM Ashley Goldstein RNMoisture41 8:00 PM Ashley Goldstein RNActivity41 8:00 PM Ashley Goldstein RNMobility41 8:00 PM Ashley Goldstein RN Gwtmkntzg847/07/2025 8:00 PM Ashley Goldstein, RNFriction and Shear3 03/21/2025 8:00 PM Ashley Goldstein RNBraden Scale Ylujr6725/07/2025 8:00 PM Ashley Goldstein RN * Pain Assessment TimerQuestionAnswerDate of AssessmentAuthorRestart Pain Assessment VatzpOao27/07/2025 8:00 PM Ashley Goldstein RN * Sepsis Model ScoresQuestionAnswerDate of AssessmentAuthorEarly Detection of Sepsis Score4.810 7:46 PM Marco PalafoxqEarly Detection of Sepsis Score0.610 7:46 PM Pepe Palafox * Pain AssessmentQuestionAnswerDate of AssessmentAuthorPain Interventions Declines;Rest03/21/2025 8:00 PM Ashley Goldstein RNPatient's Stated Pain GoalNo pain03/21/2025 8:00 PM Ashley Goldstein RNPain AssessmentNo/denies pain03/21/2025 8:00 PM Ashley Goldstein RN * Audit Alcohol ScreeningQuestionAnswerDate of AssessmentAuthorHow often do you have a drink containing alcohol? 1:52 AM Luz Richter RNHow many standard drinks containing alcohol do you have on a typical day?No 03/21/2025 1:52 AM Luz Richter RNHow often do you have six or more drinks on one occasion? 1:52 AM Luz Richter RNAudit-Slime Score0 03/21/2025 1:52 AM Luz Richter RN * Deterioration Index ScoreQuestionAnswerDate of AssessmentAuthorDeterioration Index Score28.8703/21/2025 7:46 PM Pepe Palafox * Head, Ears, Eyes, Nose, and Throat (HEENT)QuestionAnswerDate of Assessment AuthorHead, Ears, Eyes, Nose, and Throat (WDL)X1 8:00 PM Ashley Goldstein RNR EyeMildly impaired vision;Corrective syywct3403/21/2025 8:00 PM Ashley Ferreira RNL EyeMildly impaired vision;Corrective xagjxt0503/21/2025 8:00 PM Ashley Goldstein RNR EarMildly impaired jhqncyo2803/21/2025 8:00 PM Ashley Goldstein RNL EarMildly impaired ylngcrz6803/21/2025 8:00 PM Ashley Ferreira RNNoseIntact03/21/2025 8:00 PM Ashley Goldstein RNThroat Tyhngk1303/21/2025 12:33 PM Rayna Alfred RNTonguePink;Moist03/21/2025 12:33 PM Rayna Alfred RNMucous Membrane(s)Moist;[place];Nttadb1203/21/2025 12:33 PM Rayna Alfred RNTeethIntact03/21/2025 8:00 PM Ashley Goldstein RNHead and UlgoZnkffdakbgl27/07/2025 12:33 PM Rayna Alfred RN ZrlxLlpvvzzevha68/07/2025 12:33 PM Rayna Alfred RN * Short Portable Mental StatusQuestionAnswerDate of AssessmentAuthorWhat are the date, month, year? 8:00 PM Ashley Goldstein RNWhat is the day of the week? 8:00 PM Ashley Goldstein RNWhat is the name of this place? 8:00 PM Ashley Goldstein RNWhat is your phone number?0 03/21/2025 8:00 PM Ashley Goldstein RNHow old are you? 8:00 PM Ashley Goldstein RNWhen were you born? 8:00 PM Ashley Goldstein RNWho is the current president? 8:00 PM Ashley Goldstein RNWho was the president before him? 8:00 PM Ashley Goldstein RN * Fall Risk LevelQuestionAnswerDate of AssessmentAuthorMobility zoneLow (Green Zone)03/21/2025 8:00 PM Ashley Goldstein RNMorse fall risk zoneLow (Green Zone)03/21/2025 8:00 PM Ashley Goldstein RNMental status questionaire zone Low (Green Zone)03/21/2025 8:00 PM Ashley Goldstein RN * Skin Assessment Sign offQuestionAnswerDate of AssessmentAuthorDual Sign-off - Admission/TransferAllyse RN03/21/2025 1:40 AM Ashley Goldstein RNAny new wounds identified on admission/transfer?No03/21/2025 1:40 AM Ashley Goldstein RNProvider notified of new ntgodUn4903/21/2025 1:40 AM Ashley Goldstein RN * Vital SignsQuestionAnswerDate of GltehvlnfaHbzmdpKM741/7503/21/2025 8:00 PM Ashley Goldstein RNTemp97. 8:00 PM Ashley Goldstein RNTemp awhNchfoqks87/07/2025 8:00 PM Ashley Goldstein RNPulse7203/21/2025 8:00 PM Ashley Goldstein RNSpO29503/21/2025 8:00 PM Ashley Goldstein RNHeart Rate HyjudgLnyrhjy12/07/2025 8:00 PM Ashley Goldstein RNBP LocationLeft arm 03/21/2025 8:00 PM Ashley Goldstein RNBP BszlvmYrktjgyod10/07/2025 8:00 PM Ashley Goldstein RNMAP (mmHg)8903/21/2025 8:00 PM Ashley Goldstein RN Patient EzbtovjjNlxgk71/07/2025 8:00 PM Ashley Goldstein RN * QuestionAnswerDate of PwpyslyagcVumjbuFlwd3461/07/2025 7:00 PM Rayna Alfred RNPulse rate from Plethysmogram (bpm)4703/21/2025 4:01 PM Rayna Alfred RN * QuestionAnswerDate of AssessmentAuthorLevel of NbfcecjldyhzdZqamb94/07/2025 8:00 PM Ashley Goldstein RNOrientation LevelOriented X41 8:00 PM Ashley Goldstein RNCognitionAppropriate judgement;Follows commands 03/21/2025 8:00 PM Ashley Goldstein RNSpeechClear1 8:00 PM EDT Ashley López RNL Pupil VbddbicfQkuah47/07/2025 12:33 PM Rayna Alfred RNL Pupil Size (mm) 12:33 PM Rayna Alfred, RNR Pupil PtknndriKnuap12/07/2025 12:33 PM Rayna Alfred, RNR Pupil Size (mm)3 03/21/2025 12:33 PM Rayna Alfred RNLUE SensationFull sensation 03/21/2025 12:33 PM Rayna Alfred RNLLE SensationFull sensation 03/21/2025 12:33 PM EDRayna Arnett RNRLE SensationFull sensation 03/21/2025 12:33 PM Rayna Alfred RNSwallowAble to swallow solids and liquids without cdoirzaqug85/07/2025 8:00 PM Ashley Goldstein RNR Pupil VgnyzqasfjkHlhautzj35/07/2025 12:33 PM Rayna Alfred, RNL Pupil TuvwkyugwjpHwxctjwi80/07/2025 12:33 PM Rayna Alfred, ALONSOR Hand Grasp Mdayxjra61/07/2025 8:00 PM Ashley Goldstein, ALONSOL Hand GraspModerate 03/21/2025 8:00 PM Ashley Goldstein, ALONSOR Foot TkjjohojfyexDccmvibw47/07/2025 8:00 PM Ashley Goldstein RNL Foot BzmzuzqwkjdmZfoptvhg75/07/2025 8:00 PM Ashley Goldstein, ALONSOR Foot Plantar ZojslmaHfpgfpqk94/07/2025 8:00 PM Ashley Ferreira, ALONSOL Foot Plantar OhrpzblBrxryyof42/07/2025 8:00 PM EDAshley Guardado RNR Pupil VsplmZfwjd74/07/2025 12:33 PM Rayna Alfred, RNL Pupil RbiizTmsvu80/07/2025 12:33 PM Rayna Alfred RNNeuro Symptoms None03/21/2025 8:00 PM Ashley Goldstein RNPupil VdxvmqgnqmWsb27/07/2025 12:33 PM Rayna Alfred RNHand Grasp/Motor Function/Sensation Assessment Grasp;Dorsiflexion;Plantar vljhpuz3803/21/2025 8:00 PM Ashley Goldstein RN Facial BhgdhzxnHapumwldazi41/07/2025 12:33 PM Rayna Alfred RN * QuestionAnswerDate of AssessmentAuthorBilateral Breath SoundsClear;Diminished 03/21/2025 8:00 PM Ashley Goldstein RNRespiratory YztciknMgciif63/07/2025 8:00 PM Ashley Goldstein RNChest ZttrzqskobIphqlfxywhq41/07/2025 8:00 PM Ashley Goldstein RNCoughOccasional;Cqngxbewwg14/07/2025 8:00 PM Aslhey Goldstein RNSputum OwbavrCyzgb74/07/2025 8:00 PM Ashley Goldstein RN Respiratory DjoiffEwfecekbu52/07/2025 8:00 PM Ashley Goldstein RN Respiratory Depth/TfqlfbMdggity68/07/2025 8:00 PM Ashley Goldstein RN * QuestionAnswerDate of AssessmentAuthorCardiac QlsfmmHHJ76/07/2025 8:00 PM LIZETT BrunerAshley RNEctopyPremature ventricular ctwqbaeulsno46/07/2025 8:00 PM Ashley Goldstein RNEctopy KbtysxqzjIdqtxypsml26/07/2025 8:00 PM Ashley Goldstein RNCardiac BjfcwwddoeErfcrqq12/07/2025 8:00 PM Ashley Goldstein RN Dianetic Counselor NzougcZs39/07/2025 8:00 PM Ashley Goldstein RNJugular Venous Distention (JVD)No03/21/2025 8:00 PM Ashley Goldstein RNCardiac JifdaeimYqzy88/07/2025 8:00 PM Ashley Goldstein RNHeart SoundsS1, S2 03/21/2025 8:00 PM Ashley Goldstein RN * GastrointestinalQuestionAnswerDate of AssessmentAuthorAbdominal Tenderness Gnaevhnyy06/07/2025 8:00 PM Ashley Goldstein RNGastrointestinal (WDL)WDL 03/21/2025 8:00 PM Ashley Goldstein RNAbdomen InspectionSoft;Nondistended 03/21/2025 8:00 PM Ashley Goldstein RNBowel RbjidrzinwoiBk26/07/2025 8:00 PM Ashley Goldstein RN * Peripheral VascularQuestionAnswerDate of AssessmentAuthorPeripheral Vascular (WDL)WDL1 8:00 PM Ashley Goldstein RNCapillary RefillLess than/equal to 2 seconds (All extremities)03/21/2025 8:00 PM Ashley Goldstein RNPulsesRight radial;Left radial;Right posterior tibial;Left posterior tibial;Right pedal;Left pedal1 8:00 PM Ashley Goldstein RNCyanosis None03/21/2025 8:00 PM Ashley Goldstein RNPeripheral Vascular Additional AssessmentsRight upper awubzqxma26/07/2025 8:00 PM Ashley Goldstein RN * RUGume Neurovascular AssessmentQuestionAnswerDate of AssessmentAuthorRUE Capillary RefillLess than/equal to 2 cnzjlpr5603/21/2025 8:00 PM Ashley Goldstein RNRUE ColorAppropriate for gibonmoor73/07/2025 8:00 PM Ashley Goldstein RNRUE Temperature/MoistureWarm;Dry03/21/2025 8:00 PM Ashley Goldstein RNRight Radial Pulse+ 8:00 PM Ashley Goldstein RN * LUE Neurovascular AssessmentQuestionAnswerDate of AssessmentAuthorLeft Radial Pulse+ 8:00 PM Ashley Goldstein RN * RLE Neurovascular AssessmentQuestionAnswerDate of AssessmentAuthorRight Posterior Tibial Pulse+ 8:00 PM Ashley Goldstein RNRight Pedal Pulse+ 8:00 PM Ashley Goldstein RN * LLE Neurovascular AssessmentQuestionAnswerDate of AssessmentAuthorLeft Posterior Tibial Pulse+ 8:00 PM Ashley Goldstein RNLeft Pedal Pulse+ 8:00 PM Ashley Goldstein RN * MusculoskeletalQuestionAnswerDate of AssessmentAuthorRUEFull movement 03/21/2025 8:00 PM Ashley Goldstein RNRLEFull vqrqhofu82/07/2025 8:00 PM Ashley Goldstein RNLUEFull zgnamsen62/07/2025 8:00 PM Ashley Goldstein RNLLEFull stqvmuci61/07/2025 8:00 PM Ashley Goldstein RNMusculoskeletal (WDL)WDL1 8:00 PM Ashley Goldstein RN * PsychosocialQuestionAnswerDate of AssessmentAuthorPsychosocial (WDL)WDL 03/21/2025 8:00 PM Ashley Goldstein RN * Gladis Fall RiskQuestionAnswerDate of AssessmentAuthorHistory of Falling, Immediate or Within 3 Ccnall409/07/2025 8:00 PM Ashley Goldstein RN Secondary Qktxstizf6371/07/2025 8:00 PM Ashley Goldstein RNAmbulatory Aid0 03/21/2025 8:00 PM Ashley Goldstein RNIntravenous Therapy/Heparin Lock20 03/21/2025 8:00 PM Ashley Goldstein RNGait/Tapgcpobzalg828/07/2025 8:00 PM Ashley Goldstein RNMental Snennc975/07/2025 8:00 PM Ashley Goldstein RN Morse Fall Risk Kyvhn478503/21/2025 8:00 PM Ashley Goldstein RN * Amari ScaleQuestionAnswerDate of AssessmentAuthorBraden No Risk Interventions Continue to assess patient according to level of care03/21/2025 8:00 PM Ashley Ferreira RNSensory Bulpmhhdxyv059/07/2025 8:00 PM Ashley Goldstein RNMoisture41 8:00 PM Ashley Goldstein MJKbravcnb400/07/2025 8:00 PM Ashley Goldstein RNMobility41 8:00 PM Ashley Goldstein RN Erwpwotcn958/07/2025 8:00 PM Ashley Goldstein, RNFriction and Shear3 03/21/2025 8:00 PM Ashley Goldstein RNBraden Scale Krkde9791/07/2025 8:00 PM Ashley Goldstein RN * LUE Motor ResponseAnswerDate of AssessmentAuthorResponds to muaxvvpu24/07/2025 12:33 PM Rayna Alfred RN * LLE Motor ResponseAnswerDate of AssessmentAuthorResponds to qnxbtifk34/07/2025 12:33 PM Rayna Alfred RN * RUE Motor ResponseAnswerDate of AssessmentAuthorResponds to xsziucoj89/07/2025 8:00 PM Ashley Goldstein RN * RUGume SensationAnswerDate of AssessmentAuthorFull liiipunch91/07/2025 8:00 PM Ashley Goldstein RN * RLGume Motor ResponseAnswerDate of AssessmentAuthorResponds to ngzmdbmo19/07/2025 12:33 PM Rayna Alfred RN * Charting TypeQuestionAnswerDate of AssessmentAuthorCharting TypeShift qfcdjebrfk17/07/2025 8:00 PM Ashley Goldstein RN * Values/BeliefsQuestionAnswerDate of AssessmentAuthorCultural Requests During Qujcxiopxuleqxdsorx93/07/2025 1:52 AM Luz Richter RNSpiritual Requests During Xkyjlzbcptmepcjjkib58/07/2025 1:52 AM Luz Richter, ALONSO * GenitourinaryQuestionAnswerDate of AssessmentAuthorGenitourinary (WDL)WDL 03/21/2025 8:00 PM Ashley Goldstein RNUrinary AkkkxfoododnSe79/07/2025 8:00 PM Ashley Goldstein RN * Safe EnvironmentQuestionAnswerDate of AssessmentAuthorArm Bands OnID;Allergies 03/21/2025 8:00 PM Ashley Goldstein RNSide Rails/Bed Safety2/410 8:00 PM Ashley Goldstein RNBed ObjorkMwq16/07/2025 8:00 PM Ashley Goldstein RNThe Patient's Environment is SaipPpj19/07/2025 8:00 PM Ashley Goldstein RN * MobilityQuestionAnswerDate of VdohcyaznoUlbszmFwcqxqzkeu42/07/2025 8:00 PM EDT Ashley López RNActivity PerformedResting in bed03/21/2025 12:33 PM EDT Rayna Mckeon RNRepositionedTurns self03/21/2025 8:00 PM Ashley Goldstein RNHead of Bed ElevatedSelf kbzswpuos64/07/2025 8:00 PM Ashley Goldstein RNHeels/FeetFoot of bed /07/2025 8:00 PM Ashley Goldstein RNRange of MotionActive;All hcvmgaoivbi19/07/2025 8:00 PM Ashley Goldstein RNAnti-Embolism DevicesBilateral;Sequential compression devices, below knee 03/21/2025 8:00 PM Ashley Goldstein RNAnti-Embolism InterventionOff 03/21/2025 8:00 PM Ashley Goldstein RNPositioning FrequencyAble to turn self03/21/2025 8:00 PM Ashley Goldstein RN * HygieneQuestionAnswerDate of AssessmentAuthorLevel of AssistanceIndependent 03/21/2025 8:00 PM Ashley Goldstein RNIs Patient Total Care?No03/21/2025 8:00 PM Ashley Goldstein RN * PrecautionsQuestionAnswerDate of IpuhrxsbcdCuwjarDhsetbnypjpEjbw70/07/2025 8:00 PM Ashley Goldstein RN * ADL ScreeningQuestionAnswerDate of AssessmentAuthorDo you snore or wake up gasping for air?No03/21/2025 1:50 AM Luz Richter RNCan you bring in your CPAP/BiPAP from home?N/A1 1:50 AM Luz Richter RNPatient's Vision Adequate to Safely Complete Daily GhdwgfegshJie39/07/2025 1:50 AM EDT Zilke, Luz, RNPatient's Judgment Adequate to Safely Complete Daily DanbdgwhybWvl47/07/2025 1:50 AM Luz Richter RNPatient's Memory Adequate to Safely Complete Daily NgkgdygvpuNlc56/07/2025 1:50 AM Luz Richter RN Patient Able to Express Needs/WckjogeUoq77/07/2025 1:50 AM Luz Richter LCPizaqivlXentcfpslta10/07/2025 1:50 AM Luz Richter RNGrooming Ophmxrwadtu00/07/2025 1:50 AM Luz Richter, RNFeedingIndependent 03/21/2025 1:50 AM Luz Richter NEYftlmtuHjqaifczkex15/07/2025 1:50 AM Luz Richter UKYmugfvrnxMilytzeqiqh60/07/2025 1:50 AM Luz Richter RNIn/Out RdpDcvghvdeeyu07/07/2025 1:50 AM Luz Richter RNWalks in Home Qpkzruxahhd95/07/2025 1:50 AM Luz Richter RNWeakness of LegsBoth 03/21/2025 1:50 AM Luz Richter RNWeakness of Arms/RtdrpItyc85/07/2025 1:50 AM Luz Richter RNHearing - Right EarDifficulty with noise 03/21/2025 1:50 AM Luz Richter RNHearing - Left EarDifficulty with noise03/21/2025 1:50 AM Luz Richter RNWhich is your dominant hand? Either/jzyatejwecvp66/07/2025 1:50 AM Luz Richter RN * ConsultsQuestionAnswerDate of AssessmentAuthorSpiritual Care Consult NeededNo 03/21/2025 1:52 AM Luz Richter RNSocial Services Consult NeededNo 03/21/2025 1:52 AM Luz Richter RN * Therapy ConsultsQuestionAnswerDate of AssessmentAuthorPT Evaluation Needed2 03/21/2025 1:50 AM Luz Richter RNOT Evaluation Eifdhn931/07/2025 1:50 AM Luz Richter RNSLP Evaluation Zvubqt829/07/2025 1:50 AM Luz Richter, ALONSO * Assistive DevicesQuestionAnswerDate of AssessmentAuthorAssistive Devices Joopkrbufq71/07/2025 1:50 AM Luz Richter RN * Suicidal IdeationQuestionAnswerDate of AssessmentAuthor1. Wish to be (Lifetime)No03/21/2025 1:53 AM Luz Richter RN2. Non-Specific Active Suicidal Thoughts (Lifetime)No03/21/2025 1:53 AM Luz Richter RN * [place] Coma ScaleQuestionAnswerDate of AssessmentAuthorBest Eye Response Eubzvpyhzqf53/07/2025 8:00 PM Ashley Goldstein RNBe Verbal Response Wcbdejow24/07/2025 8:00 PM Ashley Goldstein RNBest Motor ResponseFollows gsaynlbt94/07/2025 8:00 PM Ashley Goldstein RNGlasgow Coma Scale Score15 03/21/2025 8:00 PM Ashley Goldstein RN * Pain AssessmentQuestionAnswerDate of AssessmentAuthorPain Interventions Declines;Rest03/21/2025 8:00 PM Ashley Goldstein RNPatient's Stated Pain GoalNo pain03/21/2025 8:00 PM Ashley Goldstein RNPain AssessmentNo/denies pain03/21/2025 8:00 PM Ashley Goldstein RN * NutritionQuestionAnswerDate of AssessmentAuthorDiet TypeHeart healthy 03/21/2025 8:00 PM Ashley Goldstein RNFeedingAble to feed self03/21/2025 8:00 PM Ashley Goldstein, ALONSO * IntegumentaryQuestionAnswerDate of AssessmentAuthorSkin ColorAppropriate for race03/21/2025 8:00 PM Ashley Goldstein RNSkin Condition/TempWarm;Dry 03/21/2025 8:00 PM Ashley Goldstein RNSkin ZhjgkzzxnLokrxi82/07/2025 8:00 PM Ashley Goldstein RNSkin TurgorEpidermis thin with loss of subcutaneous dqyhmu9603/21/2025 8:00 PM Ashley Goldstein RNIntegumentary (WDL)WDL 03/21/2025 8:00 PM Ashley Goldstein RN * Audit Alcohol ScreeningQuestionAnswerDate of AssessmentAuthorHow [...] RN * QuestionAnswerDate of AssessmentAuthorPatient Goal for Treatmentdischarge 03/21/2025 1:00 PM Rayna Alfred RN * Drug ScreeningQuestionAnswerDate of AssessmentAuthorHave you used any substances (canabis, cocaine, heroin, hallucinogens, inhalants, etc.) in the past12 months?No03/21/2025 1:52 AM Luz Richter RNHave you used any prescription drugs other than prescribed in the past 12 months?No03/21/2025 1:52 AM Luz Richter RN * Modified AldreteQuestionAnswerDate of ZppwqhqaqtEdbwrvWijdysvh809/07/2025 12:00 PM Chandrika Crews RNRespiration 12:00 PM Chandrika Crews RNCirculation 12:00 PM Chandrika Crews RNConsciousness 12:00 PM Chandrika Crwes RNOxygen Iepskvwkaw562/07/2025 12:00 PM Chandrika Crews RNModified Mikel Esctt6287/07/2025 12:00 PM Chandrika Crews RN * Modified [...] Richter RN * Weight Loss ScoreAnswerDate of NinxcbvebgWegbnc830/07/2025 1:53 AM Luz Richter RN * Malnutrition ScoreAnswerDate of ToxmavnhneUofkae715/07/2025 1:53 AM Luz Richter RN documented as of this encounter Mental Status * Bey Agitation Sedation ScaleQuestionAnswerEntry DateAuthorRichmond Agitation Sedation Scale (RASS) 11:25 AM Darrion Hartley RN * July Coma ScaleQuestionAnswerEntry DateAuthorBest Eye ResponseSpontaneous 03/21/2025 8:00 PM Ashley Goldstein RNBest Verbal ResponseOriented 03/21/2025 8:00 PM Ashley Goldstein RNBest Motor ResponseFollows commands 03/21/2025 8:00 PM Ashley Goldstein RNGlasgow Coma Scale Cpjeb4693/07/2025 8:00 PM Ashley Goldstein RN * Modified AldreteQuestionAnswerEntry PanhSszkivPgywqqqc589/07/2025 12:00 PM Chandrika Arndt RNRespiration21 12:00 PM Chandrika Crews RN Mnmqxsoilpw700/07/2025 12:00 PM Chandrika Crews RNConsciousness21 12:00 PM Chandrika Crews RNOxygen Iakyohoizn428/07/2025 12:00 PM Chandrika Crews RNModified Mikel Mtuap7978/07/2025 12:00 PM Chandrika Crews RN documented in [...] left adrenal mass, atrial tachycardia presents to [facility] as a direct admission with fluid overload [...] therapeutic Lovenox. He was initially admitted to [facility] but it was decided to transfer for [...] Center 03/28/2025 1:20 PM Kanika Sanchez CNP [facility] Your medication list START taking these [...] Your Medications These medications were sent to [facility]/pharmacy #[id number] [facility] [address] [address] aspirin 81 mg chewable tablet spironolactone 25 mg tablet Brent is allergic to azithromycin, ciprofloxacin, and lisinopril. Disposition: Home or Self Care () Discharge Condition: Stable Code Status: Full Code Diagnostic Results Hematology: Results from last 7 days Lab Units 03/22/25 0426 03/21/25 0345 03/21/25 0209 WBC AUTO 10*3/uL 9.48 9.59 11.08* HEMOGLOBIN g/dL 13.9 14.4 14.9 HEMATOCRIT % 42.8 45.0 45.8 MCV fL 88.2 89.6 88.1 PLATELETS AUTO 10*3/uL 363 369 425* INR -- -- 1.02 Chemistry: Results from last 7 days Lab Units 03/22/25 0426 03/21/25 0345 03/21/25 0209 SODIUM mmol/L 136 137 136 POTASSIUM [...] was 30 minutes. Signed Sukhjinder Schmitz MD [facility] 03/22/2025 9:40 AM CC: MD [...] up taller/more pillowsthan normal or in recliner. [phone]. Cardiac Event Monitor 30 day cardiac event monitor recommended by cardiology. Please call prior to leaving the hospital to have the event monitor placed. Wear as prescribed and follow up with cardiology at [facility] . documented in this encounter Medications at [...] with breakfast for 90 doses. 90 tablet 501/11/2025 spironolactone (Aldactone) 25 mg tablet Indications:Elevated troponinTake 1 tablet (25 mg) by mouth in the morning. 30 tablet 5106/20/2024 losartan (Cozaar) 100 mg tablet Take 100 [...] normal pressures. Patient was transferred over to [facility] for possible cardiac catheterization. On presentation to [...] Temporal 70 -- (!) 89 % -- 03/21/25 2000 127/75 36.2 ??C (97.2 ??F) Temporal 72 -- 95 % -- 03/21/25 1900 117/63 36.1 ??C (97 ??F) Temporal 75 17 95 % -- 03/21/25 1800 134/60 36.1 ??C (96.9 ??F) Temporal 77 17 97 % -- 03/21/25 1700 [...] Value Ventricular Rate 74 Atrial Rate 74 NE Interval 192 QRS DURATION 160 QT Interval 498 QTC CALCULATION(BAZETT) 552 P [place] 52 R-[place] 133 T Wave [place] -12 Impression Sinus rhythm with occasional Premature ventricular complexes Left bundle branch block Abnormal ECG When compared with ECG of 27-JUL-2023 07:48, Premature ventricular complexes are now Present Left bundle branch block is now Present No results found for: CKTOTAL , CKMB , CKMBINDEX , TROPONINI Complete Echo (TTE) w/wo Imaging Agent, Strain, 3D, Bubble Study Result Date: 03/21/2025 1 1 [facility] Heart Station [address] [id number] [phone] (fax) Echocardiogram-[facility] Name: BRENT CAR Study Date: 03/21/2025 08:32 AM B/P: 121 mmHg/55 mmHg HR: 75 bpm Date of : 1950 Location: [facility] Height: 70 in. Age: 74 year(s) Patient [...] No pericardial effusion. Procedure Staff Reading Group: [facility] Referring Physician: TOMEKA ROSADO Smoke Control Supervisor: Neelima Oliver [facility] Ordering Physician: SKYLAR MEJIA Wall Motion Scores -1 - hyperkinesia, 0 - not evaluated, 1 - normal, 2 - hypokinesia, 3 - akinesia, 4 - dyskinesia No nuclear medicine results found for the past 12 months Relevant Imaging Results Complete Echo (TTE) w/wo Imaging Agent, Strain, 3D, Bubble Study 1 1 [facility] Heart Station [address] [place] [address] [phone] (fax) Echocardiogram-[facility] Name: BRENT CAR Study Date: 03/21/2025 08:32 AM B/P: 121 mmHg/55 mmHg HR: 75 bpm Date of : 1950 Location: [facility] Height: 70 in. Age: 74 year(s) Patient [...] No pericardial effusion. Procedure Staff Reading Group: [facility] Referring Physician: TOMEKA ROSADO Smoke Control Supervisor: MARK Castro Ordering Physician: SKYLAR MEJIA Wall [...] informed consent. he was brought to the microbiology lab technician in a fasting state. The right neck area was prepped and draped in usual fashion. Micropuncture technique was used for access under ultrasound guidance into the right internal jugular vein. A 6-[place] x 11 cm sheath was placed. The right wrist area was prepped and draped in usual fashion. Micropuncture technique was used for access in the radial artery. A 6-[place] x 11 cm sheath was placed. Verapamil was given through the sheath, and heparin was administered intravenously. A 5-[place] Ponce catheter was used for right heart catheterization and measurement of pressures and calculation of cardiac output using the estimated Pretty method. Ponce catheter was removed. Bilateral selective coronary angiography was then performed using 6-[place] JL3.5 diagnostic catheter for engagement of the left coronary artery and 6-[place] JR5 diagnostic catheter for engagement of the [...] Cardiology service. Follow up in Cardiology Clinic. aJi Subramanian MD XR chest 1 view Narrative: [...] mg Crestor 20 mg Farxiga 10 mg ELECTRICAL CONTINUITY INSPECTOR Bisoprolol 5 mg b.I.d. ELECTRICAL CONTINUITY INSPECTOR Losartan 100 mg, [facility] Monitor & Replace electrolytes per protocol, ensure K>4 & Mg>2 Remainder of care as per primary team and other consulting services Okay to discharge from cardiology standpoint, please reach out with any questions or concerns Will need follow-up with cardiology in 1 week This note was, at least in part, completed using a voice strap maker system. Every effort was made to ensure accuracy. However, inadvertent computerized strap maker errors may be present. Simba Steen MD PGY-2 Internal Medicine Cardiology Consult Service [facility] [1] Current Facility-Administered Medications: acetaminophen (Tylenol) tablet 650 mg, 650 mg, oral, q6h PRN, Skylar Mejia CNP aspirin chewable tablet 81 mg, 81 mg, oral, Daily with breakfast, Ezekiel Clayton MD bisoprolol (Zebeta) tablet 5 mg, 5 mg, oral, BID, Skylar Mejia CNP, 5 mg at 03/21/25 2159 dapagliflozin propanediol (Farxiga) tablet 10 mg, 10 [...] mg, 100 mg, oral, Daily, Skylar Pirkl, MANAGER PAID, 100 mg at 03/21/25 1300 melatonin tablet 5 mg, 5 mg, oral, Nightly PRN, Skylar Pirkl, MANAGER PAID pantoprazole (ProtoNix) EC tablet 40 mg, 40 mg, oral, Daily, Skylar Pirkl, MANAGER PAID, 40 mg at 03/22/25 0602 rosuvastatin (Crestor) tablet 20 mg, 20 mg, oral, q AM, Skylar Pirkl, MANAGER PAID, 20 mg at 03/21/25 1300 spironolactone (Aldactone) tablet 25 mg, 25 mg, oral, Daily, Ezekiel Clayton MD, 25 mg at 03/21/25 1349 tamsulosin (Flomax) 24 hr capsule 0.4 mg, 0.4 mg, oral, q PM, Skylar Pirkl, MANAGER PAID, 0.4 mg at Cosigned by Zeus Schroeder [...] GDMT for HFrEF Close outpatient follow-up with [facility] for HFrEF management Repeat echo in [...] 10:33 AM EDT Source Note - Skylar Mejia CNP - 03/21/2025 2:58 AM EDT Images from the original note were not included. Hospital Medicine History and Physical 03/21/2025 3:05 AM THE HOSPITALIST TEAM PREFERS TO USE FORMTEK CHAT FOR NON-URGENT COMMUNICATION 7AM- 7PM. IF I DO NOT RESPOND WITHIN 20 MINUTES OR URGENT MATTERS, PLEASE CALL THROUGH THE VEST FRONT PRESSER. FROM 7PM-7AM, PLEASE PAGE [phone](COVR). Chief Complaint Direct admit from [place] for fluid overload and elevated trop History of Present Illness Brent Car is an 74 y.o. male who came from home with past medical history CKD 3a, DM2, hypertension, hyperlipidemia, neuroendocrine carcinoma, left adrenal mass, atrial tachycardia [facility] with fluid overload [...] therapeutic Lovenox. He was initially admitted to [facility] but it was decided to transferfor possible [...] output CKD stage 3a, GFR 45-59 ml/min ([facility]) - Stable, at baseline Type 2 diabetes mellitus without complication, without long-term current use of insulin ([facility]) - ISS, ACHS Mixed hyperlipidemia - Continue rosuvastatin 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[facility]) - Stable continue monitoring Primary [...] hospital stay by a member of [facility] Medicine. Past Medical History Medical History[1] Past [...] Physical Activity: Insufficiently Active (07/06/2024) Received from [facility] Exercise Vital Sign Days of Exercise per Week: 2 days Minutes of Exercise per Session: 30 min Stress: No Stress Concern Present (07/06/2024) Received from [facility] [employer] - Occupational Stress Questionnaire Feeling of Stress : Only a little Social Connections: Unknown (07/06/2024) Received from [facility] Social Connection and Isolation Panel [NHANES] Frequency of Communication with Friends and Family: More than three times a week Frequency of Social Gatherings with Friends and Family: Once a week Attends Rastafarian Services: Patient declined Active Member of Clubs [...] Procedure Abnormality Status --------- ------ CBC auto differential[[id number]] Abnormal Final result Please view results for these tests on the individual orders. APTT ANTI-XA (HEPARIN LEVEL) ANTI-XA (HEPARIN LEVEL) BASIC METABOLIC PANEL CBC HIGH SENSITIVITY TROPONIN I HIGH SENSITIVITY TROPONIN I Imaging Tilt table Narrative: A Tilt Table test was performed on 10/16/23 at [facility] METHOD: The test was explained to Brent [...] study for Syncope RECOMMENDED FOLLOW UP: Call [facility] to schedule and appointment [facility] 03/21/2025 3:05 AM [1] Past Medical History: Diagnosis Date Abnormal ECG Arrhythmia CKD (chronic kidney disease) stage 3, GFR 30-59 ml/min ([facility]) Diabetes 1.5, managed as type 2 ([facility]) HTN (hypertension) Hyperlipidemia NSVT (nonsustained ventricular tachycardia) (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) [2] Past Surgical History: Procedure [...] AM THE HOSPITALIST TEAM PREFERS TO USE FORMTEK CHAT FOR NON-URGENT COMMUNICATION 7AM- 7PM. IF I DO NOT RESPOND WITHIN 20 MINUTES OR URGENT MATTERS, PLEASE CALL THROUGH THE VEST FRONT PRESSER. FROM 7PM-7AM, PLEASE PAGE [phone](COVR). Chief Complaint Direct admit from [place] for fluid overload and elevated trop History of Present Illness Brent Car is an 74 y.o. male who came from home with past medical history CKD 3a, DM2, hypertension, hyperlipidemia, neuroendocrine carcinoma, left adrenal mass, atrial tachycardia [facility] with fluid overload [...] therapeutic Lovenox. He was initially admitted to [facility] but it was decided to transferfor possible [...] output CKD stage 3a, GFR 45-59 ml/min ([facility]) - Stable, at baseline Type 2 diabetes mellitus without complication, without long-term current use of insulin ([facility]) - ISS, ACHS Mixed hyperlipidemia - Continue rosuvastatin 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[facility]) - Stable continue monitoring Primary [...] hospital stay by a member of [facility] Medicine. Past Medical History Medical History[1] Past [...] Physical Activity: Insufficiently Active (07/06/2024) Received from [facility] Exercise Vital Sign Days of Exercise per Week: 2 days Minutes of Exercise per Session: 30 min Stress: No Stress Concern Present (07/06/2024) Received from [facility] [employer] - Occupational Stress Questionnaire Feeling of Stress : Only a little Social Connections: Unknown (07/06/2024) Received from [facility] Social Connection and Isolation Panel [NHANES] Frequency of Communication with Friends and Family: More than three times a week Frequency of Social Gatherings with Friends and Family: Once a week Attends Rastafarian Services: Patient declined Active Member of Clubs [...] Procedure Abnormality Status --------- ------ CBC auto differential[[id number]] Abnormal Final result Please view results for these tests on the individual orders. APTT ANTI-XA (HEPARIN LEVEL) ANTI-XA (HEPARIN LEVEL) BASIC METABOLIC PANEL CBC HIGH SENSITIVITY TROPONIN I HIGH SENSITIVITY TROPONIN I Imaging Tilt table Narrative: A Tilt Table test was performed on 10/16/23 at [facility] METHOD: The test was explained to Brent [...] study for Syncope RECOMMENDED FOLLOW UP: Call [facility] to schedule and appointment Signed Skylar Mejia [facility] Medicine 03/21/2025 3:05 AM [1] Past Medical History: Diagnosis Date Abnormal ECG Arrhythmia CKD (chronic kidney disease) stage 3, GFR 30-59 ml/min ([facility]) Diabetes 1.5, managed as type 2 ([facility]) HTN (hypertension) Hyperlipidemia NSVT (nonsustained ventricular tachycardia) (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) [2] Past Surgical History: Procedure [...] normal pressures. Patient was transferred over to [facility] for possible cardiac catheterization. On presentation to [...] kidney disease) stage 3, GFR 30-59 ml/min ([facility]), Diabetes 1.5, managed as type 2 ([facility]), HTN (hypertension), Hyperlipidemia, NSVT (nonsustained ventricular tachycardia) ([facility]), Orthostatic hypotension, and Primary malignant neoplasm of duodenum ([facility]). Surgical History He has a [...] Value Ventricular Rate 74 Atrial Rate 74 NE Interval 192 QRS DURATION 160 QT Interval 498 QTC CALCULATION(BAZETT) 552 P [place] 52 R-[place] 133 T Wave [place] -12 Impression Sinus rhythm with occasional Premature [...] home Bisoprolol and Losartan. Will transition to [facility] as an outpatient. Will need follow-up with cardiology in 1 week. Ezekiel Clayton MD PGY-4 Silver Buffer [facility] [1] Family History Problem Relation Name Age of Onset Angina Mother Yasmin Josep Cancer Mother Yasmin Josep Heart attack Mother Yasmin Josep Heart failure Mother Yasmin Josep Hypertension Mother Yasmin Josep Cancer Father Demetri Car Diabetes type II [...] EDT Report given to ALONSO Adams from Rebecca Any medications or safety alerts were reviewed. Any pending diagnostics and notifications were alsoreviewed, as well as any safety concerns or issues, abnormal labs, abnormal imagining, and abnormalassessment findings. Questions were answered. Bedside report given to ALONSO Adams from ALONSO Fernandez. cath lab RN presented site to bedside RN. Bedside RN visualized site and palpated site to ensure there was no hematoma or bruising, and femoral site appears flat. Both bedside RN and microbiology lab technician RN mutually agreed that the site presents normal. cath lab RN and bedside RN either palpated or [...] Procedures: Coronary angiography Right heart cath Location: [facility] LOCOMOTIVE CRANE ENGINEER 3 / [facility] (Cath) Providers: Jai Subramanian MD [...] Problem(s): CKD stage 3a, GFR 45-59 ml/min ([facility]) - Stable, at baseline * Assessment & Plan Note - Skylar Mejia CNP - 03/21/2025 3:13 AM EDTAssociated Problem(s): Type 2 diabetes mellitus without complication, without long-term current useof insulin ([facility]) - ISS, ACHS * Assessment & Plan Note - Skylar Mejia CNP - 03/21/2025 3:13 AM EDTAssociated Problem(s): Mixed hyperlipidemia - Continue rosuvastatin * Assessment & Plan Note - Skylar Mejia CNP - 03/21/2025 3:13 AM EDTAssociated Problem(s): 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CMS/HCC) - Stable continue monitoring * Assessment & [...] -Cardiology consult * Care Plan - Ashley Lópze RN - 03/21/2025 2:24 AM EDT The patient is Moderately Stable - Low risk of patient condition declining or worsening The patient's goals for the shift include comfort The clinical goals for the shift include stable vitals Over the shift, the patient continued to make progress toward the following goals. documented in this encounter Plan of Treatment DateTypeDepartmentCare Team (Latest Contact Info)Igxuofsxroe34/25/2025 11:15 AM ESTOffice Visit [facility] [address] [place] [address] Noe San MD [address] [place] [address] NameTypePriorityAssociated DiagnosesDate/TimeCardiac event monitorCardiac ServicesRoutine NSVT (nonsustained ventricular tachycardia) ([facility]) 03/22/2025 2:16 PM EDTNameTypePriorityAssociated DiagnosesOrder ScheduleBasic metabolic panelLabRoutine Elevated troponin Expected: 03/28/2025 (Approximate), Expires: 03/21/2026ardiac event monitor Cardiac ServicesRoutine NSVT (nonsustained ventricular tachycardia) ([facility]) Once for 1 Occurrences starting 03/22/2025 until 03/22/2025documented as of this encounter Procedures Procedure NamePriorityDate/TimeAssociated DiagnosisCommentsPOCT GLUCOSE METER UNSOLICITED CMUMIOWEdvyzdv95/08/2025 11:00 AM EDT POCT GLUCOSE METER UNSOLICITED LBYEKMNKpbuvpe06/08/2025 7:31 AM EDT CBCPending Mxiofavjc17/08/2025 4:26 AM EDT PHOSPHORUSPending Yxqokuevj90/08/2025 4:26 AM EDT MAGNESIUMPending Awubpxfbj63/08/2025 4:26 AM EDT LIPID PANELAdd-On03/22/2025 4:26 AM EDT BASIC METABOLIC PANELPending Fyeyrkutj74/08/2025 4:26 AM EDT POCT GLUCOSE METER UNSOLICITED DROGYHSZdgqkki64/07/2025 8:33 PM EDT POCT GLUCOSE METER UNSOLICITED SLWRXWJJfdxfyx99/07/2025 4:41 PM EDT HIGH SENSITIVITY TROPONIN DKiuowfh30/07/2025 2:41 PM EDT RIGHT HEART EFESJuhuvnt15/07/2025 11:29 AM EDT Elevated troponin CORONARY KFMYSXVXETUYatwynn91/07/2025 11:29 AM EDT Elevated troponin XR CHEST 1 URNKLKIZ86/07/2025 9:26 AM EDT COMPLETE ECHO (TTE) W/ IMAGING VHRSVDkpgnsw55/07/2025 9:10 AM EDT POCT GLUCOSE METER UNSOLICITED EWHCXXSFzuqvie53/07/2025 7:25 AM EDT ECG 12-GPDPRQRO43/07/2025 5:02 AM EDT HIGH SENSITIVITY TROPONIN RLhdlu4703/21/2025 3:45 AM EDT SWTAovdorl53/07/2025 3:45 AM EDT BASIC METABOLIC AKZXWMgbodth07/07/2025 3:45 AM EDT HIGH SENSITIVITY TROPONIN ISTAT1 2:09 AM EDT CBC WITH AUTO SVTSQYHTTKAQXUJI71/07/2025 2:09 AM EDT APTTSTAT Add-on03/21/2025 2:09 AM EDT PROTIME-OIQXHTF8603/21/2025 2:09 AM EDT ANTI-FACTOR XAAdd-On03/21/2025 2:09 AM EDT CBC AND ASRLNSSROJWQTYUG11/07/2025 2:09 AM EDT RTCIAJXYKWABEI17/07/2025 2:09 AM EDT B-TYPE NATRIURETIC ZRXHUPSEUPC01/07/2025 2:09 AM EDT KGOFNYRISNEVS04/07/2025 2:09 AM EDT COMPREHENSIVE METABOLIC IMSKZJIEM95/07/2025 2:09 AM EDT documented in this encounter Results * (ABNORMAL) POCT glucose meter (03/22/2025 11:00 AM EDT)ComponentValueRef Range Test MethodAnalysis TimePerformed AtPathologist SignatureGlucose RZA132(H)70 - 105 mg/dL03/22/2025 11:11 AM [facility] ([facility])Comment:jarizme Specimen (Source)Anatomical Location / LateralityCollection Method / Volume Collection TimeReceived TimeBlhutchinson health hospitalCapillary blood specimen / Rnflunx7403/22/2025 11:00 AM EDT1 11:11 AM EDT Narrative [facility] ([facility]) - 03/22/2025 11:11 AM EDT Waived Testing in the ED is performed under the ED CLIA certificate #[id number]. Authorizing ProviderResult TypeResult StatusOmar Nadir BARBER BLOOD ORDERABLES Final ResultPerforming OrganizationAddressCity/State/ZIP CodePhone Number [facility] ([facility]) [address] [place] [address] * (ABNORMAL) POCT glucose meter (03/22/2025 7:31 AM EDT)ComponentValueRef Range Test MethodAnalysis TimePerformed AtPathologist SignatureGlucose EKW541(H)70 - 105 mg/dL03/22/2025 7:41 AM [facility] ([facility])Comment:jarizme Specimen (Source)Anatomical Location / LateralityCollection Method / Volume Collection TimeReceived TimeBlTracy Medical Centerillary blood specimen / Linuqiu9803/22/2025 7:31 AM EDT1 7:41 AM EDT Narrative [facility] ([facility]) - 03/22/2025 7:41 AM EDT Waived Testing in the ED is performed under the ED CLIA certificate #[id number]. Authorizing ProviderResult TypeResult StatusOmar Nadir BARBER BLOOD ORDERABLES Final ResultPerforming OrganizationAddressCity/State/ZIP CodePhone Number [facility] ([facility]) [address] [place] [address] * (ABNORMAL) Lipid panel (03/22/2025 4:26 AM EDT)ComponentValueRef RangeTest MethodAnalysis TimePerformed AtPathologist SumbkkmrkFlwxlajnoaarv623(H)<150 mg/dL03/22/2025 7:59 AM [facility] ([facility])Comment: TRIGLYCERIDE REFERENCE RANGE: 20 YEARS AND OLDER ?CARDIOVASCULAR RISK LESS THAN 150 mg/dL ? LOW RISK 150 TO 199 mg/dL ?BORDERLINE RISK 200 mg/dL AND GREATER ? HIGH RISK Mhocffjdymf09(L)120 - 200 mg/dL03/22/2025 7:59 AM [facility] ([facility]) LDL Kmfwmiznnd544 - 160 mg/dL03/22/2025 7:59 AM [facility] ([facility])HDL 21(L)23 - 92 mg/dL03/22/2025 7:59 AM [facility])Non HDL Ccrsckkmdgd5106/08/2025 7:59 AM [facility])Total VLDL-C330 - 40 mg/dL03/22/2025 7:59 AM [facility] ([facility])Cholesterol/HDL Ratio4.6 mg/dL03/22/2025 7:59 AM [facility] ([facility])Specimen (Source)Anatomical Location / LateralityCollection Method / VolumeCollection TimeReceived Time BloodVenous blood specimen / UnknownVenipuncture / Hqjyfrr2203/22/2025 4:26 AM EDT 03/22/2025 4:57 AM EDT Narrative Authorizing ProviderResult TypeResult StatusSukhjinder BARBER BLOOD ORDERABLES Final ResultPerforming OrganizationAddressCity/State/ZIP CodePhone Number [facility] ([facility]) [address] [place] [address] * Phosphorus (03/22/2025 4:26 AM EDT)ComponentValueRef RangeTest MethodAnalysis TimePerformed AtPathologist SignaturePhosphorus3.72.5 - 5.0 mg/dL03/22/2025 5:25 AM [facility] ([facility])Specimen (Source)Anatomical Location / LateralityCollection Method / VolumeCollection TimeReceived TimeBloodVenous blood specimen / UnknownVenipuncture / Sjtcatw7403/22/2025 4:26 AM EDT1 4:57 AM EDT Narrative Authorizing ProviderResult TypeResult StatusOmar Horani MDLAB BLOOD ORDERABLES Final ResultPerforming OrganizationAddressCity/State/ZIP CodePhone Number [facility] ([facility]) [address] [place] [address] * Magnesium (03/22/2025 4:26 AM EDT)ComponentValueRef RangeTest MethodAnalysis TimePerformed AtPathologist SignatureMagnesium2.01.9 - 2.7 mg/dL03/22/2025 5:25 AM [facility] ([facility])Specimen (Source)Anatomical Location / LateralityCollection Method / VolumeCollection TimeReceived TimeBloodVenous blood specimen / UnknownVenipuncture / Owhtafy1103/22/2025 4:26 AM EDT1 4:57 AM EDT Narrative Authorizing ProviderResult TypeResult StatusOmar Nadir HERNANDEZLAB BLOOD ORDERABLES Final ResultPerforming OrganizationAddressCity/State/ZIP CodePhone Number [facility]) [address] [place] [address] * (ABNORMAL) CBC (03/22/2025 4:26 AM EDT)ComponentValueRef RangeTest Method Analysis TimePerformed AtPathologist SignatureAuto WBC9.484.00 - 10.60 10*3/uL 03/22/2025 5:15 AM [facility] ([facility])RBC4.854.20 - 5.70 10*6/uL 03/22/2025 5:15 AM [facility] ([facility])Duohjvokck45.913.0 - 17.0 g/dL 03/22/2025 5:15 AM [facility] ([facility])Tznfievhkc06.839.0 - 50.0 % 03/22/2025 5:15 AM [facility] ([facility])MCV88.282.0 - 98.0 fL 03/22/2025 5:15 AM [facility] ([facility])MCH28.727.0 - 33.0 pg 03/22/2025 5:15 AM [facility] ([facility])MCHC32.532.0 - 35.0 g/dL 03/22/2025 5:15 AM [facility] ([facility])RDW15.9(H)11.5 - 15.0 % 03/22/2025 5:15 AM [facility] ([facility])Dkcgdtgfz838317 - 400 10*3/uL 03/22/2025 5:15 AM [facility] ([facility])Specimen (Source)Anatomical Location / LateralityCollection Method / VolumeCollection TimeReceived Time BloodVenous blood specimen / UnknownVenipuncture / Nvmnttr1003/22/2025 4:26 AM EDT1 4:57 AM EDT Narrative Authorizing ProviderResult TypeResult StatusOmar Nadir BARBER BLOOD ORDERABLES Final ResultPerforming OrganizationAddressCity/State/ZIP CodePhone Number [facility] ([facility]) [address] [place] [address] * (ABNORMAL) Basic metabolic panel (03/22/2025 4:26 AM EDT)ComponentValueRef RangeTest MethodAnalysis TimePerformed AtPathologist OijznvvjqNzyllq431291 - 145 mmol/L1 5:25 AM [facility] ([facility])Potassium4.23.5 - 5.1 mmol/L1 5:25 AM [facility] [facility])Myynzhaz32396 - 107 mmol/L1 5:25 AM [facility] ([facility])QQ41513 - 31 mmol/L 03/22/2025 5:25 AM [facility] ([facility])BUN30(H)7 - 25 mg/dL03/22/2025 5:25 AM [facility] ([facility])Creatinine1.34(H)0.70 - 1.30 mg/dL 03/22/2025 5:25 AM [facility] ([facility])Uxlatfb138(H)70 - 100 mg/dL 03/22/2025 5:25 AM [facility] ([facility])Calcium9.18.6 - 10.3 mg/dL 03/22/2025 5:25 AM [facility] ([facility])Anion Rze488 - 20 mmol/L 03/22/2025 5:25 AM [facility] ([facility])eGFR55.2(L)>60.0 mL/min/1.73m* 5:25 AM [facility] ([facility])Comment:[facility]???s estimated glomerular filtration rate (eGFR) will no [...] disproportionately affect any one group of individuals.BUN/Creatinine Ratio22. 5:25 AM [facility] ([facility])Specimen (Source)Anatomical Location / LateralityCollection Method / VolumeCollection TimeReceived TimeBloodVenous blood specimen / Unknown Venipuncture / Ldrkcgj8103/22/2025 4:26 AM EDT1 4:57 AM EDT Narrative Authorizing ProviderResult TypeResult StatusSukhjinder BARBER BLOOD ORDERABLES Final ResultPerforming OrganizationAddressCity/State/ZIP CodePhone Number [facility] ([facility]) [address] [place] [address] * (ABNORMAL) POCT glucose meter (03/21/2025 8:33 PM EDT)ComponentValueRef Range Test MethodAnalysis TimePerformed AtPathologist SignatureGlucose DZR883(H)70 - 105 mg/dL03/21/2025 8:46 PM [facility] ([facility])Comment:[email or web address] Specimen (Source)Anatomical Location / LateralityCollection Method / Volume Collection TimeReceived TimeBloodCapillary blood specimen / Hyddwdx6003/21/2025 8:33 PM EDT1 8:46 PM EDT Narrative [facility] ([facility]) - 03/21/2025 8:46 PM EDT Waived Testing in the ED is performed under the ED CLIA certificate #[id number]. Authorizing ProviderResult TypeResult StatusSukhjinder BARBER BLOOD ORDERABLES Final ResultPerforming OrganizationAddressCity/State/ZIP CodePhone Number [facility]) [address] [place] [address] * (ABNORMAL) POCT glucose meter (03/21/2025 4:41 PM EDT)ComponentValueRef Range Test MethodAnalysis TimePerformed AtPathologist SignatureGlucose VYH154(H)70 - 105 mg/dL03/21/2025 5:[facility]Comment:jarizme Specimen (Source)Anatomical Location / LateralityCollection Method / Volume Collection TimeReceived TimeBloodCapillary blood specimen / Ltcfcrg5403/21/2025 4:41 PM EDT1 5:05 PM EDT Narrative [facility] ([facility]) - 03/21/2025 5:05 PM EDT Waived Testing in the ED is performed under the ED CLIA certificate #[id number]. Authorizing ProviderResult TypeResult StatusOmar Nadir BARBER BLOOD ORDERABLES Final ResultPerforming OrganizationAddressCity/State/ZIP CodePhone Number [facility] ([facility]) [address] [address] * (ABNORMAL) High Sensitivity Troponin I (03/21/2025 2:41 PM EDT)ComponentValue Ref RangeTest MethodAnalysis TimePerformed AtPathologist SignatureHigh Sensitivity Troponin I28(H)<20 ng/L1 3:55 PM [facility])Specimen (Source)Anatomical Location / LateralityCollection Method / VolumeCollection TimeReceived TimeBloodVenous blood specimen / Unknown Venipuncture / Irlcthz6403/21/2025 2:41 PM EDT1 3:21 PM EDT Narrative Authorizing ProviderResult TypeResult StatusOmar Nadir BARBER BLOOD ORDERABLES Final ResultPerforming OrganizationAddressCity/State/ZIP CodePhone Number [facility]) [address] [place] [address] * CORONARY ANGIOGRAPHY, RIGHT HEART CATH (03/21/2025 [...] informed consent. ??he was brought to the microbiology lab technician in a fasting state. The right neck area was prepped and draped in usual fashion. Micropuncture technique was used for access under ultrasound guidance into the right internal jugular vein. ??A 6-[place] x 11 cm sheath was placed. ?? The right wrist area was prepped and draped in usual fashion. Micropuncture technique was used for access in the radial artery. ??A 6-[place] x 11 cm sheath was placed. ??Verapamil was given through the sheath, and heparin was administered intravenously. ?? A 5-[place] Ponce catheter was used for right heart catheterization and measurement of pressures and calculation of cardiac output using the estimated Pretty method. ??Ponce catheter was removed. Bilateral selective coronary angiography was then performed using 6-[place] JL3.5 diagnostic catheter for engagement of the left coronary artery and 6-[place] JR5 diagnostic catheter for engagement of the [...] Other chest pain [R07.89] Authorizing ProviderResult TypeResult StatusGeormary lou Subramanian [facility] CARDIAC CATH PROCEDURESFinal Result * XR chest [...] Electronically signed: Anthony Herman. Authorizing ProviderResult TypeResult StatusSukhjinder Schmitz MDG XR PROCEDURESFinal Result * COMPLETE ECHO (TTE) W/ IMAGING AGENT (03/21/2025 9:10 AM EDT)Anatomical Region LateralityModalityOtherSpecimen (Source)Anatomical Location / Laterality Collection Method / VolumeCollection TimeReceived Time03/21/2025 8:32 AM EDT Narrative 03/21/2025 12:08 PM EDT 1 1 [facility] [address] [place] [address] [phone] (fax) Echocardiogram-[facility] Name: BRENT CAR Study Date: 03/21/2025 08:32 AM B/P: 121 mmHg/55 mmHg HR: 75 bpm Date of : 1950 Location: [facility] Height: 70 in. Age: 74 year(s) Patient [...] No pericardial effusion. Procedure Staff Reading Group: [facility] Referring Physician: TOMEKA ROSADO Smoke Control Supervisor: MARK Castro ??Ordering Physician: SKYLAR MEJIA Wall Motion Scores -1 - hyperkinesia, 0 - not evaluated, 1 - normal, 2 - hypokinesia, 3 - akinesia, 4 - dyskinesia Procedure Note Megan Harrington MD - 03/21/2025 1 1 [facility] Heart Station [address] [place] [address] [phone] (fax) Echocardiogram-[facility] Name: BRENT CAR Study Date: 03/21/2025 08:32 AM B/P: 121 mmHg/55 mmHg HR: 75 bpm Date of : 1950 Location: [facility] Height: 70 in. Age: 74 year(s) Patient [...] No pericardial effusion. Procedure Staff Reading Group: [facility] Referring Physician: TOMEKA ROSADO Smoke Control Supervisor: Neelima Oliver [facility] Ordering Physician: SKYLAR MEJIA Wall Motion Scores -1 - hyperkinesia, 0 - not evaluated, 1 - normal, 2 - hypokinesia, 3 - akinesia, 4 - dyskinesia Authorizing ProviderResult TypeResult Raf Mejia CNPCV ECHO PROCEDURES Final Result * (ABNORMAL) POCT glucose meter (03/21/2025 7:25 AM EDT)ComponentValueRef Range Test MethodAnalysis TimePerformed AtPathologist SignatureGlucose MRZ102(H)70 - 105 mg/dL03/21/2025 7:36 AM [facility])Comment:jarizme Specimen (Source)Anatomical Location / LateralityCollection Method / Volume Collection TimeReceived TimeBloodCapillary blood specimen / Icbihpu2803/21/2025 7:25 AM EDT1 7:36 AM EDT Narrative [facility] ([facility]) - 03/21/2025 7:36 AM EDT Waived Testing in the ED is performed under the ED CLIA certificate #[id number]. Authorizing ProviderResult TypeResult StatusOmar Nadir BARBER BLOOD ORDERABLES Final ResultPerforming OrganizationAddressCity/State/ZIP CodePhone Number [facility] ([facility]) [address] [place] [address] * ECG 12 lead (03/21/2025 5:02 AM EDT)ComponentValueRef RangeTest MethodAnalysis TimePerformed AtPathologist SignatureVentricular Eksf93MGFXV MUSEAtrial Rate 74BPMGE MUSEPR Ogoljjxh665ykCI MUSEQRS FTQJZZZQ235wwVI MUSEQT Magviyau829meOV MUSEQTC CALCULATION(BAZETT)552msGE MUSEP Worr16jxzacewKS MUSER-Pzgi040smsaehq GE MUSET Wave [place]-12degreesGE MUSESpecimen (Source)Anatomical Location / LateralityCollection Method / [...] on 03/22/2025 10:43:39 AM Authorizing ProviderResult TypeResult [facility] Centersharona [facility] CenterECG ORDERABLESFinal ResultPerforming OrganizationAddressCity/State/ZIP CodePhone Number GE MUSE * (ABNORMAL) High Sensitivity Troponin I (03/21/2025 3:45 AM EDT)ComponentValue Ref RangeTest MethodAnalysis TimePerformed AtPathologist SignatureHigh Sensitivity Troponin I43(H)<20 ng/L1 4:57 AM [facility] ([facility])Specimen (Source)Anatomical Location / LateralityCollection Method / VolumeCollection TimeReceived TimeBloodVenous blood specimen / Unknown Venipuncture / Bgnbtdb8103/21/2025 3:45 AM EDT1 4:17 AM EDT Narrative Authorizing ProviderResult TypeResult [facility] ORDERABLES Final ResultPerforming OrganizationAddressCity/State/ZIP CodePhone Number [facility] ([facility]) [address] [place] [address] * (ABNORMAL) CBC (03/21/2025 3:45 AM EDT)ComponentValueRef RangeTest Method Analysis TimePerformed AtPathologist SignatureAuto WBC9.594.00 - 10.60 10*3/uL 03/21/2025 4:34 AM [facility] ([facility])RBC5.024.20 - 5.70 10*6/uL 03/21/2025 4:34 AM [facility] ([facility])Lfizxcetzs20.413.0 - 17.0 g/dL 03/21/2025 4:34 AM [facility] ([facility])Moanchlvts78.039.0 - 50.0 % 03/21/2025 4:34 AM [facility] ([facility])MCV89.682.0 - 98.0 fL 03/21/2025 4:34 AM [facility] ([facility])MCH28.727.0 - 33.0 pg 03/21/2025 4:34 AM [facility] ([facility])MCHC32.032.0 - 35.0 g/dL 03/21/2025 4:34 AM [facility] ([facility])RDW15.8(H)11.5 - 15.0 % 03/21/2025 4:34 AM [facility] ([facility])Jqavcjldr522125 - 400 10*3/uL 03/21/2025 4:34 AM [facility] ([facility])Specimen (Source)Anatomical Location / LateralityCollection Method / VolumeCollection TimeReceived Time BloodVenous blood specimen / UnknownVenipuncture / Dcnvhsf1703/21/2025 3:45 AM EDT1 4:16 AM EDT Narrative Authorizing ProviderResult TypeResult StatusMeU[facility] BLOOD ORDERABLES Final ResultPerforming OrganizationAddressCity/State/ZIP CodePhone Number [facility] ([facility]) [address] [place] [address] * (ABNORMAL) Basic metabolic panel (03/21/2025 3:45 AM EDT)ComponentValueRef RangeTest MethodAnalysis TimePerformed AtPathologist HaltjchboKpidit653783 - 145 mmol/L1 4:52 AM [facility] ([facility])Potassium4.03.5 - 5.1 mmol/L1 4:52 AM [facility] ([facility])Jfjiodzs69779 - 107 mmol/L1 4:52 AM [facility] ([facility])HO02395 - 31 mmol/L 03/21/2025 4:52 AM [facility] ([facility])BUN31(H)7 - 25 mg/dL03/21/2025 4:52 AM [facility] ([facility])Creatinine1.230.70 - 1.30 mg/dL 03/21/2025 4:52 AM [facility] ([facility])Mixayrl989(H)70 - 100 mg/dL 03/21/2025 4:52 AM [facility] ([facility])Calcium9.18.6 - 10.3 mg/dL 03/21/2025 4:52 AM [facility] ([facility])Anion Hpo419 - 20 mmol/L 03/21/2025 4:52 AM [facility] ([facility])eGFR61.2>60.0 mL/min/1.73m*2 03/21/2025 4:52 AM [facility] ([facility])Comment:[facility]???s estimated glomerular filtration rate (eGFR) will no [...] one group of individuals.BUN/Creatinine Ratio25. 4:52 AM [facility] ([facility])Specimen (Source)Anatomical Location / LateralityCollection Method / VolumeCollection TimeReceived TimeBloodVenous blood specimen / Unknown Venipuncture / Qkhytao6903/21/2025 3:45 AM EDT1 4:17 AM EDT Narrative Authorizing ProviderResult TypeResult StatusMeUCSF [facility] BLOOD ORDERABLES Final ResultPerforming OrganizationAddressCity/State/ZIP CodePhone Number [facility] ([facility]) [address] [place] [address] * Anti-Xa (Heparin Level) (03/21/2025 2:09 AM EDT)ComponentValueRef RangeTest MethodAnalysis TimePerformed AtPathologist SignatureAnti-Xa (Heparin)0.450.3 - 0.7 IU/mL03/21/2025 3:10 AM [facility] ([facility])Comment:Rivaroxaban and Apixaban will interfere with the anti Xa assay used to monitor UFH and LMWH.Specimen (Source)Anatomical Location / LateralityCollection Method / VolumeCollection TimeReceived TimeBloodVenous blood specimen / Unknown Venipuncture / Wdezorn3603/21/2025 2:09 AM EDT1 2:15 AM EDT Narrative Authorizing ProviderResult TypeResult StatusP[facility]LAB BLOOD ORDERABLES Final ResultPerforming OrganizationAddressCity/State/ZIP CodePhone Number [facility]) [address] [place] [address] * aPTT - baseline (03/21/2025 2:09 AM EDT)ComponentValueRef RangeTest Method Analysis TimePerformed AtPathologist VuirlsmjskSNW51.425.0 - 35.0 Seconds 03/21/2025 3:09 AM [facility] ([facility])Comment:Clinical significance of the APTT is questionable in the presence of heparin.Specimen (Source) Anatomical Location / LateralityCollection Method / VolumeCollection Time Received TimeBloodVenous blood specimen / UnknownVenipuncture / Unknown 03/21/2025 2:09 AM EDT1 2:15 AM EDT Narrative Authorizing ProviderResult TypeResult StatusP[facility]mont [facility] CampusLAB BLOOD ORDERABLES Final ResultPerforming OrganizationAddressCity/State/ZIP CodePhone Number [facility] ([facility]) [address] [place] [address] * (ABNORMAL) B-type natriuretic peptide (03/21/2025 2:09 AM EDT)ComponentValue Ref RangeTest MethodAnalysis TimePerformed AtPathologist VqrwcrvntUDX863(H)0 - 100 pg/mL03/21/2025 2:50 AM [facility] ([facility])Specimen (Source) Anatomical Location / LateralityCollection Method / VolumeCollection Time Received TimeBloodVenous blood specimen / UnknownVenipuncture / Unknown 03/21/2025 2:09 AM EDT1 2:20 AM EDT Narrative Authorizing ProviderResult TypeResult StatusMequirino Mejia CNPLAB BLOOD ORDERABLES Final ResultPerforming OrganizationAddressCity/State/ZIP CodePhone Number [facility] ([facility]) [address] [place] [address] * (ABNORMAL) CBC auto differential (03/21/2025 2:09 AM EDT)ComponentValueRef RangeTest MethodAnalysis TimePerformed AtPathologist SignatureAuto WBC11.08(H) 4.00 - 10.60 10*3/uL03/21/2025 2:34 AM [facility] ([facility])RBC5.20 4.20 - 5.70 10*6/uL03/21/2025 2:34 AM [facility] ([facility])Hemoglobin 14.913.0 - 17.0 g/dL03/21/2025 2:34 AM [facility] ([facility])Hematocrit 45.839.0 - 50.0 %03/21/2025 2:34 AM [facility] ([facility])MCV88.182.0 - 98.0 fL03/21/2025 2:34 AM [facility] ([facility])MCH28.727.0 - 33.0 pg 03/21/2025 2:34 AM [facility] ([facility])MCHC32.532.0 - 35.0 g/dL 03/21/2025 2:34 AM [facility] ([facility])RDW15.9(H)11.5 - 15.0 % 03/21/2025 2:34 AM [facility] ([facility])Neutrophils %72.8(H)40.0 - 72.0 %03/21/2025 2:34 AM [facility] ([facility])Lymphocytes %16.7(L)20.0 - 45.0 %03/21/2025 2:34 AM [facility] ([facility])Monocytes %8.65.0 - 12.0 %03/21/2025 2:34 AM [facility] ([facility])Eosinophils %1.10.0 - 6.0 %03/21/2025 2:34 AM [facility] ([facility])Basophils %0.40.0 - 1.0 % 03/21/2025 2:34 AM [facility] ([facility])Neutrophils Absolute8.08(H) 1.60 - 7.60 10*3/uL03/21/2025 2:34 AM [facility] ([facility])Lymphocytes Absolute1.851.20 - 4.00 10*3/uL03/21/2025 2:34 AM [facility] ([facility])Monocytes Absolute0.950.10 - 1.00 10*3/uL03/21/2025 2:34 AM [facility] ([facility])Eosinophils Absolute0.120.00 - 0.50 10*3/uL03/21/2025 2:34 AM [facility] ([facility])Basophils Absolute0.040.00 - 0.20 10*3/uL 03/21/2025 2:34 AM [facility] ([facility])Ykliqudgf822(H)150 - 400 10*3/uL03/21/2025 2:34 AM [facility] ([facility])nRBC %0.00 %03/21/2025 2:34 AM [facility] ([facility])Immature Granulocytes %0.40.0 - 1.0 % 03/21/2025 2:34 AM [facility] ([facility])Immature Granulocytes Absolute 0.040.00 - 0.20 10*3/uL03/21/2025 2:34 AM [facility] ([facility]) Specimen (Source)Anatomical Location / LateralityCollection Method / Volume Collection TimeReceived TimeBloodVenous blood specimen / UnknownVenipuncture / Jfbmzcl4503/21/2025 2:09 AM EDT1 2:20 AM EDT Narrative Authorizing ProviderResult TypeResult StatusMesharona [facility] BLOOD ORDERABLES Final ResultPerforming OrganizationAddressCity/State/ZIP CodePhone Number [facility] ([facility]) [address] [place] [address] * Protime-INR (03/21/2025 2:09 AM EDT)ComponentValueRef RangeTest MethodAnalysis TimePerformed AtPathologist FnwwazdchZxqfgrx93.412.3 - 14.8 Edptfjf9003/21/2025 2:42 AM EDTRE[facility] ([facility])INR1.020.90 - 1.101 2:42 AM EDT [facility] ([facility])Comment: [facility] RECOMMENDED INR FOR WARFARIN THERAPY CONDITION [...] TimeReceived TimeBloodVenous blood specimen / UnknownVenipuncture / Fozkryy1203/21/2025 2:09 AM EDT1 2:15 AM EDT Narrative Authorizing ProviderResult TypeResult StatusSkylar [facility] BLOOD ORDERABLES Final ResultPerforming OrganizationAddressCity/State/ZIP CodePhone Number [facility]) [address] [place] [address] * (ABNORMAL) HIGH SENSITIVITY TROPONIN I (03/21/2025 2:09 AM EDT)ComponentValue Ref RangeTest MethodAnalysis TimePerformed AtPathologist SignatureHigh Sensitivity Troponin I43(H)<20 ng/L1 2:51 AM [facility])Specimen (Source)Anatomical Location / LateralityCollection Method / VolumeCollection TimeReceived TimeBloodVenous blood specimen / Unknown Venipuncture / Wbzcehp5703/21/2025 2:09 AM EDT1 2:20 AM EDT Narrative Authorizing ProviderResult TypeResult StatusSkylar [facility] BLOOD ORDERABLES Final ResultPerforming OrganizationAddressCity/State/ZIP CodePhone Number [address] [address] * Phosphorus (03/21/2025 2:09 AM EDT)ComponentValueRef RangeTest MethodAnalysis TimePerformed AtPathologist SignaturePhosphorus3.62.5 - 5.0 mg/dL03/21/2025 2:46 AM [facility])Specimen (Source)Anatomical Location / LateralityCollection Method / VolumeCollection TimeReceived TimeBloodVenous blood specimen / UnknownVenipuncture / Ftvpuem8803/21/2025 2:09 AM EDT1 2:20 AM EDT Narrative Authorizing ProviderResult TypeResult Statussharona [facility] BLOOD ORDERABLES Final ResultPerforming OrganizationAddressCity/State/ZIP CodePhone Number [facility]) [address] [place] [address] * Magnesium (03/21/2025 2:09 AM EDT)ComponentValueRef RangeTest MethodAnalysis TimePerformed AtPathologist SignatureMagnesium2.11.9 - 2.7 mg/dL03/21/2025 2:46 AM [facility])Specimen (Source)Anatomical Location / LateralityCollection Method / VolumeCollection TimeReceived TimeBloodVenous blood specimen / UnknownVenipuncture / Ldyoqlx3203/21/2025 2:09 AM EDT1 2:20 AM EDT Narrative Authorizing ProviderResult TypeResult StatusMequirino Mejia CNPLAB BLOOD ORDERABLES Final ResultPerforming OrganizationAddressCity/State/ZIP CodePhone Number [facility] ([facility]) [address] [place] [address] * (ABNORMAL) Comprehensive metabolic panel (03/21/2025 2:09 AM EDT)Component ValueRef RangeTest MethodAnalysis TimePerformed AtPathologist SignatureSodium 660338 - 145 mmol/L1 2:46 AM [facility] ([facility])Potassium 4.23.5 - 5.1 mmol/L1 2:46 AM [facility] ([facility])Mhvsnmuc112 98 - 107 mmol/L1 2:46 AM [facility] ([facility])DX02065 - 31 mmol/L1 2:46 AM [facility] ([facility])Anion Bzz103 - 20 mmol/L 03/21/2025 2:46 AM [facility] ([facility])BUN31(H)7 - 25 mg/dL03/21/2025 2:46 AM [facility] ([facility])Creatinine1.33(H)0.70 - 1.30 mg/dL 03/21/2025 2:46 AM [facility] ([facility])BUN/Creatinine Ratio23.3 03/21/2025 2:46 AM [facility] ([facility])Dmkqaej889(H)70 - 100 mg/dL 03/21/2025 2:46 AM [facility] ([facility])Calcium9.48.6 - 10.3 mg/dL 03/21/2025 2:46 AM [facility] ([facility])YXH0642 - 39 U/L1 2:46 AM [facility] ([facility])ALT (SGPT)97 - 52 U/L1 2:46 AM [facility] ([facility])Alkaline Pqsbosyggws53500 - 104 U/L1 2:46 AM [facility] ([facility])Total Protein7.06.0 - 8.3 g/dL03/21/2025 2:46 AM [facility] ([facility])Albumin4.33.5 - 5.7 g/dL03/21/2025 2:46 AM [facility] ([facility])Total Bilirubin0.60.3 - 1.0 mg/dL03/21/2025 2:46 AM [facility] ([facility])eGFR55.7(L)>60.0 mL/min/1.73m* 2:46 AM [facility] ([facility])Comment:[facility]???s estimated glomerular filtration rate (eGFR) will no [...] TimeBloodVenous blood specimen / Unknown Venipuncture / Ihhszth5903/21/2025 2:09 AM EDT1 2:20 AM EDT Narrative Authorizing ProviderResult TypeResult StatusMeU[facility] BLOOD ORDERABLES Final ResultPerforming OrganizationAddressCity/State/ZIP CodePhone Number [facility] ([facility]) [address] [place] [address] documented in this encounter Visit Diagnoses Diagnosis [...] 99 days Given03/22/2025 9:05 AM EDT81 mg aspirin tablet As needed, Starting on Thu03/21/25 at 1042, Intraprocedure Given03/21/2025 10:42 AM [id number] mg bisoprolol (Zebeta) tablet 5 mg 5 mg, oral, 2 times daily, First dose on Thu03/21/25 at 0315, For 99 days Given03/22/2025 9:06 AM EDT5 wqMddwh0403/21/2025 9:59 PM EDT5 fhTlrvq7003/21/2025 1:00 PM EDT5 mg dapagliflozin propanediol (Farxiga) tablet 10 mg 10 mg, oral, Daily, First dose on Thu03/21/25 at 1300, For 99 days, Indications: heart failure Indications:heart dnlbvqgMfujp93/08/2025 9:06 AM EDT10 fgDwtwm0003/21/2025 1:00 PM EDT10 mg dextrose 50 % [...] or tube feeding bolus) fentaNYL (Sublimaze) injection As needed, Starting on Thu03/21/25 at 1058, Intraprocedure Given03/21/2025 11:17 AM EDT25 oreTlcnp70/07/2025 10:58 AM EDT25 mcg glucose chewable tablet 24 g 24 g, [...] or tube feeding bolus) heparin (porcine) injection As needed, Starting on Thu03/21/25 at 1109, Intraprocedure Given03/21/2025 11:09 AM EDT4,000 Units heparin irrigation 2 units/mL in NS As needed, Starting on Thu03/21/25 at 1042, Intraprocedure Given03/21/2025 10:42 AM EDT2,000 mL insulin lispro (HumaLOG) injection 0-10 Units 0-10 Units, subcutaneous, 3 times daily with meals, First dose on Thu03/21/25 at 1730, For 99 days,BG less than 110 instructions: Hold Insulin. If BG less than 70, implement hypoglycemia orders., [id number]: 0, BG 151-200: 2, BG 201-250: 4, [...] BG greater than 400 instructions: Call Physician iodixanol (VISIPaque) 320 mg iodine/mL injection As needed, Starting on Thu03/21/25 at 1127, Intraprocedure Given03/21/2025 11:27 AM EDT50 mL lidocaine (PF) (Xylocaine) 10 mg/mL (1 %) injection As needed, Starting on Thu03/21/25 at 1042, Intraprocedure Given03/21/2025 10:42 AM EDT20 mL losartan (Cozaar) tablet 100 mg 100 mg, oral, Daily, First dose on Thu03/21/25 at 1000, For 99 days Given03/22/2025 9:06 AM URQ234 hcZdlvg7903/21/2025 1:00 PM KBW331 mg melatonin tablet 5 mg 5 mg, oral, Nightly PRN, sleep, Starting on Thu03/21/25 at 0256, For 99 days midazolam (Versed) injection As needed, Starting on Thu03/21/25 at 1058, Intraprocedure Given03/21/2025 11:17 AM EDT1 arUxcdf6503/21/2025 10:58 AM EDT1 mg pantoprazole (ProtoNix) EC tablet 40 mg 40 mg, oral, Daily at 7am, First dose on Thu03/21/25 at 0700, Do not crush, chew, or split., Indication: GERD Given03/22/2025 6:02 AM EDT40 mg rosuvastatin (Crestor) tablet 20 mg 20 mg, oral, Every morning, First dose on Thu03/21/25 at 1000, For 99 days Given03/22/2025 9:06 AM EDT20 yfOyuwy0603/21/2025 1:00 PM EDT20 mg sodium chloride 0.9 % infusion Continuous PRN, Starting on Thu03/21/25 at 1042, Intraprocedure New Bag03/21/2025 10:42 AM ADV493 mL/hr100 mL/hr spironolactone (Aldactone) tablet 25 mg 25 mg, oral, Daily, First dose on Thu03/21/25 at 1400, For 99 days Given03/22/2025 9:06 AM EDT25 ptOfsoo3303/21/2025 1:49 PM EDT25 mg tamsulosin (Flomax) 24 hr capsule 0.4 mg 0.4 mg, oral, Every evening, First dose on Thu03/21/25 at 2000, For 99 days, Do not crush, chew, orsplit. 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) * 0905 (Given - Provider: Denny Lester RN) bisoprolol (Zebeta) tablet 5 mg 5 mg, [...] BG less than 70, implement hypoglycemia orders., [id number]: 0, BG 151-200: 2, BG 201-250: 4, BG 251-300: 6, BG 301-350: 8, BG 351-400: 10, BG greater than 400 instructions: Call Physician * 1730 (Given - Provider: Rayna Mckeon RN) * 0800 (Not Given - Provider: Denny Lester RN - Reason: Order parameters not met) * 1111 (Given - Provider: Denny Lester RN) insulin lispro (HumaLOG) injection 0-8 Units(Linked Group [...] days * 1349 (Given - Provider: Rayna Mckeon, RN) * 0906 (Given - Provider: Denny Lester RN) sulfur hexafluoride microsphr (Lumason) injection 24.28 mg (COMPLETED) 24.28 mg (2 mL), intravenous, Once in imaging, Starting on Thu03/21/25 at 0910, For 1 dose * 0911 (Given - Provider: Neelima Oliver RT) tamsulosin (Flomax) 24 hr capsule 0.4 mg 0.4 mg, oral, Every evening, First dose on Thu03/21/25 at 2000, For 99 days, Do not crush, chew, orsplit. * 2159 (Given - Provider: Ashley López RN) Medication Order//01/2025 heparin infusion 100 units/mL in D5W (CANCELED) [...] action when infusion is complete: Stopped]) Medication Order acetaminophen (Tylenol) tablet 650 mg 650 mg, oral, Every 6 hours PRN, mild pain (1-3 pain score), (1-3), Starting on Thu03/21/25 at 0256, For 99 days aspirin tablet (CANCELED) As needed, Starting on Thu03/21/25 at 1042, Intraprocedure * 1042 (Given - Provider: Darrion Mendez, ALONSO) dextrose 50 % in water (D50W) syringe [...] RN) * 1117 (Given - Provider: Darrion Mendez, ALONSO) glucose chewable tablet 24 g(Linked Group 2) [...] RN) * 1117 (Given - Provider: Darrion Mendez, ALONSO) sodium chloride 0.9 % infusion (COMPLETED) Continuous PRN, Starting on Thu03/21/25 at 1042, Intraprocedure * 1042 (New Bag - Provider: Darrion Mendez RN) * 1230 (Stopped - Provider: Rayna Mckeon RN - Comment: Not running when returned to the unit) Order Group 1: insulin lispro (HumaLOG) injection 0-10 UnitsJump to med 0-10 Units, subcutaneous, 3 times daily with meals, First dose on Thu03/21/25 at 1730, For 99 days,BG less than 110 instructions: Hold Insulin. If BG less than 70, implement hypoglycemia orders., [id number]: 0, BG 151-200: 2, BG 201-250: 4, [...] DateEnd Date Tomeka Rosado MD [address] [place] [phone] PCP - GeneralNurse Practitioner11/22/24documented as of this encounter
--- OUTSIDE RECORDS SUMMARY | 2025-03-28 13:20 | XMS_ITS | Encounter Summary ---
Author Organization [facility] Address [address] [place] [address] Care Team Providers Care Ambulance Mechanic Name Role Phone Tomeka Rosado MD Primary Care Provider [phone] Reason for Visit * ReasonCommentsFollow-upPatient is here today for a follow up appointment [facility] for chest pressure and fluid around his heart. Patient is currently wearing a 30 day monitor.Patient would like to know if its ok to return to taking his Allopurinol in the pm.NSVTFrequent PVCsHyperlipidemiaHypertensionBradycardia Atrial tachycardiaCKDADizzinessDizziness/lightheaded with standing Encounter Details DateTypeDepartmentCare Team (Latest Contact Info)Jwaagdsnfyk05/14/2025 1:20 PM EDTFollow-Up [facility] [address] [phone] Kanika Sanchez, GABINO [address] [place] [phone] Chronic systolic heart failure (CMS/HCC) (Primary Dx); NICM (nonischemic cardiomyopathy) (CMS/HCC); NSVT (nonsustained ventricular tachycardia) (CMS/HCC); PVC (premature ventricular contraction); Orthostatic hypotension; Coronary artery disease involving [place] coronary artery of [place] heart without angina pectoris; Mixed hyperlipidemia; Benign hypertensive heart disease with heart failure (CMS/HCC) Social History Tobacco UseTypesPacks/DayYears UsedDateSmoking Tobacco: WsldlcIjvqeckjxj995.9 10/14/1967 - 09/14/1983Smokeless Tobacco: NeverAlcohol UseStandard Drinks/Week CommentsNot Currently0 (1 standard drink = 0.6 oz pure alcohol)I rarely drink. [facility] UtilitiesAnswerDate RecordedIn the past 12 months has [...] homeless or living in a fci (including now)?No 03/21/2025Hunger Vital SignAnswerDate RecordedWithin the past 12 months, you worried that your food would run out before you got the money to buymore.Never true03/21/2025Ran Out of Food in the Last YearNot on file03/21/2025Sex and Gender InformationValueDate RecordedSex Assigned at RhkfvAkjj48/13/2024 6:49 AM ESTLegal EqsUcdu1312/12/2021 12:14 AM EDTGender XnsrefodUsjp01/13/2024 6:49 AM EST Sexual OrientationHeterosexual or Uwivhxmp20/13/2024 6:49 AM ESTdocumented as of this encounter Last Filed Vital Signs Vital SignReadingTime TakenCommentsBlood Ybqabioe148/7303/28/2025 1:17 PM EDT Wiacy057803/28/2025 1:17 PM EDTTemperature--Respiratory Rate--Oxygen Yankhknfjs35% 03/28/2025 1:17 PM EDTInhaled Oxygen Concentration--Vyjaix588 kg (231 lb) 03/28/2025 1:17 PM UFYHsfdfx532.8 cm (5' 10 )03/28/2025 1:17 PM EDTBody Mass Index33.151 1:17 PM EDTdocumented in this encounter Functional Status * BPAnswerDate of WnhmacguhuWgrhmu540/7303/28/2025 1:17 PM EDNereyda Knapp MA * PulseAnswerDate of BzhfkifrwqMkrwun8509/14/2025 1:17 PM EDNereyda Knapp MA * Patient PositionAnswerDate of ItnlvrjnukVwhnmgJexlndc35/14/2025 1:17 PM EDT Nereyda Morin MA * BPAnswerDate of TefdwcchecHequji917/7303/28/2025 1:17 PM EDNereyda Knapp MA * PulseAnswerDate of JvnalomsxbGixrqq3816/14/2025 1:17 PM EDNereyda Knapp MA * VmL2DdjljwSzny of BiuystkzdaNmpjdz2795/14/2025 1:17 PM EDNereyda Knapp MA * BP LocationAnswerDate of AssessmentAuthorLeft arm03/28/2025 1:17 PM EDT Nereyda Morin MA * Patient PositionAnswerDate of KuhltprnjpKzidycAnmyxqc00/14/2025 1:17 PM EDT Nereyda Morin MA documented as of this encounter Patient Instructions * Patient Instructions* Kanika Sanchez CNP - 03/28/2025 1:20 PM EDT *We will plan to switch losartan to Entresto * Attachments The following attachments cannot be sent through Care Everywhere. * Sacubitril; Valsartan Tablets (Scottish) documented in this encounter Progress Notes * Kanika Sanchez, GABINO - 03/28/2025 1:20 PM EDT Images from the original note were not included. Cardiovascular Medicine [facility] SUBJECTIVE Chief Complaint Patient presents with Follow-up Patient is here today for a follow up appointment [facility] for chest pressure and fluid around his heart. NSVT Frequent PVCs Hyperlipidemia Hypertension Bradycardia Atrial tachycardia CKDA Dizziness Dizziness/lightheaded with standing Brent Car is a 75 y.o. male here for follow-up after his recent admission to [facility]. His Zoe accompanied him today. PMHx: CAD, NSTEMI, NSVT, LBBB, HFpEF, atrial tachycardia, orthostatic hypotension, HTN, HLD, neuroendocrine carcinoma, left adrenal mass HPI 03/28/2025 He has overall been doing well since his admission. We reviewed testing/procedures done during recent admission. New diagnosis of systolic heart failure - NICM as cardiac cath showed mild CAD. He notes he had been experiencing an increase in fatigue prior to his admission but just figured hewas run down/had a cold. PT/spouse also note that there have been some significant life stressors leading up to this. BP at home running 110-120s/50-60s. HR averaging 50-60. He is currently wearing an event monitor. He notes occasional dizziness/LH with position changes. Denies c/o CP, dyspnea, orthopnea, PND, LE edema, palpitations, syncope. Discharge Summary Admission Date: 03/21/2025 1:32 AM [...] left adrenal mass, atrial tachycardia presents to [facility] as a direct admission with fluid overload [...] therapeutic Lovenox. He was initially admitted to [facility] but it was decided to transfer [...] Adrenal adenoma, left - Continue outpatient follow-up. Problem List[1] Medical History[2] Family History[3] Social History[4] Allergies[5] OBJECTIVE Visit Vitals Ht 1.778 m (5' 10 ) Wt 105 kg (231 lb) BMI 33.15 kg/m?? Smoking Status Former BSA 2.28 m?? Medications: Current Medications[6] Physical Exam Labs: Lab Results Component Value Date BNP 460 (H) 03/21/2025 Admission on 03/21/2025, Discharged on 03/22/2025 Component Date Value Sodium 03/21/2025 136 Potassium 03/21/2025 4.2 Chloride 03/21/2025 103 CO2 03/21/2025 25 Anion Gap 03/21/2025 12 BUN 03/21/2025 31 (H) Creatinine 03/21/2025 1.33 (H) BUN/Creatinine Ratio 03/21/2025 23.3 Glucose 03/21/2025 122 (H) Calcium 03/21/2025 9.4 AST 03/21/2025 13 ALT (SGPT) 03/21/2025 9 Alkaline Phosphatase 03/21/2025 101 Total Protein 03/21/2025 7.0 Albumin 03/21/2025 4.3 Total Bilirubin 03/21/2025 0.6 eGFR 03/21/2025 55.7 (L) Magnesium 03/21/2025 2.1 Phosphorus 03/21/2025 3.6 High Sensitivity Troponi* 03/21/2025 43 (H) Protime 03/21/2025 13.4 INR 03/21/2025 1.02 Auto WBC 03/21/2025 11.08 (H) RBC 03/21/2025 5.20 Hemoglobin 03/21/2025 14.9 Hematocrit 03/21/2025 45.8 MCV 03/21/2025 88.1 MCH 03/21/2025 28.7 MCHC 03/21/2025 32.5 RDW 03/21/2025 15.9 (H) Neutrophils % 03/21/2025 72.8 (H) Lymphocytes % 03/21/2025 16.7 (L) Monocytes % 03/21/2025 8.6 Eosinophils % 03/21/2025 1.1 Basophils % 03/21/2025 0.4 Neutrophils Absolute 03/21/2025 8.08 (H) Lymphocytes Absolute 03/21/2025 1.85 Monocytes Absolute 03/21/2025 0.95 Eosinophils Absolute 03/21/2025 0.12 Basophils Absolute 03/21/2025 0.04 Platelets 03/21/2025 425 (H) nRBC % 03/21/2025 0.0 Immature Granulocytes % 03/21/2025 0.4 Immature Granulocytes Ab* 03/21/2025 0.04 BNP 03/21/2025 460 (H) aPTT 03/21/2025 32.4 Ventricular Rate 03/21/2025 74 Atrial Rate 03/21/2025 74 ND Interval 03/21/2025 192 QRS DURATION 03/21/2025 160 QT Interval 03/21/2025 498 QTC CALCULATION(BAZETT) 03/21/2025 552 P Sullivan 03/21/2025 52 R-Sullivan 03/21/2025 133 T Wave Sullivan 03/21/2025 -12 Anti-Xa (Heparin) 03/21/2025 0.45 Sodium 03/21/2025 137 Potassium 03/21/2025 4.0 Chloride 03/21/2025 105 CO2 03/21/2025 21 BUN 03/21/2025 31 (H) Creatinine 03/21/2025 1.23 Glucose 03/21/2025 112 (H) Calcium 03/21/2025 9.1 Anion Gap 03/21/2025 15 eGFR 03/21/2025 61.2 BUN/Creatinine Ratio 03/21/2025 25.2 Auto WBC 03/21/2025 9.59 RBC 03/21/2025 5.02 Hemoglobin 03/21/2025 14.4 Hematocrit 03/21/2025 45.0 MCV 03/21/2025 89.6 MCH 03/21/2025 28.7 MCHC 03/21/2025 32.0 RDW 03/21/2025 15.8 (H) Platelets 03/21/2025 369 High Sensitivity Troponi* 03/21/2025 43 (H) Glucose POC 03/21/2025 130 (H) High Sensitivity Troponi* 03/21/2025 28 (H) Glucose POC 03/21/2025 156 (H) Glucose POC 03/21/2025 124 (H) Sodium 03/22/2025 136 Potassium 03/22/2025 4.2 Chloride 03/22/2025 106 CO2 03/22/2025 23 BUN 03/22/2025 30 (H) Creatinine 03/22/2025 1.34 (H) Glucose 03/22/2025 113 (H) Calcium 03/22/2025 9.1 Anion Gap 03/22/2025 11 eGFR 03/22/2025 55.2 (L) BUN/Creatinine Ratio 03/22/2025 22.4 Auto WBC 03/22/2025 9.48 RBC 03/22/2025 4.85 Hemoglobin 03/22/2025 13.9 Hematocrit 03/22/2025 42.8 MCV 03/22/2025 88.2 MCH 03/22/2025 28.7 MCHC 03/22/2025 32.5 RDW 03/22/2025 15.9 (H) Platelets 03/22/2025 363 Magnesium 03/22/2025 2.0 Phosphorus 03/22/2025 3.7 Triglycerides 03/22/2025 164 (H) Cholesterol 03/22/2025 96 (L) LDL Calculated 03/22/2025 42 HDL 03/22/2025 21 (L) Non HDL Cholesterol 03/22/2025 75 Total VLDL-C 03/22/2025 33 Cholesterol/HDL Ratio 03/22/2025 4.6 Glucose POC 03/22/2025 133 (H) BSA 03/22/2025 2.25 Glucose POC 03/22/2025 153 (H) Testing/Procedures: Encounter Date: 03/21/25 ECG 12 lead Result Value Ventricular Rate 74 Atrial Rate 74 ND Interval 192 QRS DURATION 160 QT Interval 498 QTC CALCULATION(BAZETT) 552 P Sullivan 52 R-Sullivan 133 T Wave Sullivan -12 Impression Sinus rhythm with occasional Premature ventricular complexes Left bundle branch block Abnormal ECG When compared with ECG of 27-JUL-2023 07:48, Premature ventricular complexes are now Present Left bundle branch block is now Present Confirmed by Juany Duron ([id number]) on 03/22/2025 10:43:39 AM Cardiac cath conclusion 03/21/2025 PROCEDURE PHYSICIAN: Jai Subramanian MD . Indications: Brent Car is a 74 y.o. male who is admitted with chest pain, elevated troponin and LV dysfunction. He was referred for cardiac catheterization. Coronary angiography: This is a right-dominant circulation. Left Main: This arises from the left coronary cusp. It bifurcates into left anterior descending and circumflex vessels. This has mild disease but no obstructive lesions. Left anterior descending: This has mild disease in the mid segment around the takeoff of a diagonalbranch but no obstructive lesions. Circumflex: This is [...] up in Cardiology Clinic. Jai Subramanian MD ECHO 03/21/2025 Left Ventricle: The left ventricle is moderately enlarged. Global left ventricular systolic function is severely reduced. The calculated Biplane EF is 28 %. The EF is 20 % visually. Left ventricular wall thickness is mildly increased. Regional wall motion abnormalities (see diagram). Grade 1, mild d iastolic dysfunction (abnormal relaxation). Right Ventricle: The right ventricle is normal in size.Normal right ventricular systolic function. Unable to assess right sided pressures due to lack of measurable tricuspid regurgitation. Left Atrium: The left atrium is mildly enlarged. Aortic Valve: Trivial aortic valve regurgitation. Aorta: The aortic root exhibits mild dilatation. Overall Conclusions: Due to suboptimal imaging Lumason contrast was administered for opacification and better delineation of endocardial borders. No significant valvular abnormalities ECHO 07/10/2023 CONCLUSION: 1. Mild concentric left ventricular hypertrophy with normal systolic function. LVEF is 55 to 60%. 2. Normal right ventricular size and systolic function. 3. Mild to moderate biatrial dilatation. 4. Mild mitral regurgitation. 5. No pericardial effusion. ECHO 10/08/2018 ASSESSMENT/PLAN: Diagnoses and all orders for this visit: Chronic systolic heart failure (CMS/HCC) - sacubitril-valsartan (Entresto) 24-26 mg tablet; Take 1 tablet by mouth two times daily. NICM (nonischemic cardiomyopathy) (CMS/HCC) NSVT (nonsustained ventricular tachycardia) (CMS/HCC) PVC (premature ventricular contraction) Orthostatic hypotension Coronary artery disease involving [place] coronary artery of [place] heart without angina pectoris Mixed hyperlipidemia Benign hypertensive heart disease with heart failure (CMS/HCC) #Systolic heart failure, new onset -EF 28% per 03/21/2025 TTE -NICM - mild CAD per cardiac cath 03/21/2025 -Currently compensated on exam, NYHA II -Reviewed test results with pt/spouse as this was not all reviewed with them during recent admission. -Discussed heart failure monitoring at home including daily weights, s/s to look for indication HF exacerbation. Will also need to find the appropriate fluid balance for him given his hx of orthostatic hypotension. Will start with 2-2.5L daily fluid allowance. HF booklet provided. -GDMT: will switch losartan to Entresto 24/26mg BID, continue bisoprolol, jardiance, aldactone -Follow-up BMP in 2 weeks. -Currently wearing 30 day event monitor for further investigation into causes of acute HF given noted PVCs and NSVT during recent admission. Of note, pt also dealing with significant life stressors #LBBB -Cardiac cath shows mild CAD -Asymptomatic #NSVT #PVCs -Wearing event monitor -Continue BB #HTN -Controlled #Orthostatic hypotension #Dizziness -Encouraged routine exercise, compression stockings. Will have to see what will be a good fluid balance for him. -Change positions slowly #CAD -Mild CAD per 03/21/25 cardiac cath -Denies CP or dyspnea -Continue ASA, statin, BB Follow-up with EP to review PVC/NSVT burden. No follow-ups on file. Kanika Sanchez CNP [facility] Cardiovascular Medicine I spent 48 minutes of total time on the day of the visit. This time was spent preparing for the visit, obtaining and reviewing any outside history/data, taking a history, performing an exam/evaluation, counseling and educating the patient/family about the diagnosis and plan, performing medical decision making, referring to and communicating with other health care referrals, independently interpreting results and documenting in the EMR, and coordinating care. Please see the additional documentation in this note for specific details. [1] Patient Active Problem List Diagnosis Near syncope NSVT (nonsustained ventricular tachycardia) ([facility]/HCC) Abnormal electrocardiogram (ECG) (EKG) CKD stage 3a, GFR 45-59 ml/min (CMS/HCC) Bradycardia by electrocardiogram Frequent PVCs Abnormal nuclear stress test Accelerated hypertension Allergic rhinitis Anemia Balance problem Benign prostatic hyperplasia with lower urinary tract symptoms Chronic sinusitis Type 2 diabetes mellitus without complication, without long-term current use of insulin (CMS/HCC) Diabetic polyneuropathy associated with type 2 diabetes mellitus (CMS/HCC) Diverticulosis of sigmoid colon Encounter to establish care with new doctor Esophageal dysphagia Fall Gout Hypoglycemia Left adrenal mass Left rotator cuff tear arthropathy Mixed hyperlipidemia Morbid obesity (CMS/HCC) 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CMS/HCC) Nodule of lower lobe of left lung Obesity (BMI 30-39.9) Other chronic pain Pain in right knee Pityriasis rosea Primary hypertension Primary malignant neuroendocrine neoplasm of duodenum (CMS/HCC) Renal cyst, left Slow transit constipation Tubular adenoma of colon Leukemoid reaction Pneumonia of left lower lobe due to infectious organism Arthritis History of tobacco abuse Hypersomnia Type 2 diabetes mellitus with kidney complication, without long-term current use of insulin (CMS/HCC) URTI (acute upper respiratory infection) Elevated troponin Atrial tachycardia, paroxysmal Adrenal adenoma, left Fluid overload Bradycardia Left ankle swelling LLQ pain [2] Past Medical History: Diagnosis Date Abnormal ECG Arrhythmia CKD (chronic kidney disease) stage 3, GFR 30-59 ml/min (CMS/HCC) Diabetes 1.5, managed as type 2 (CMS/HCC) HTN (hypertension) Hyperlipidemia NSVT (nonsustained ventricular tachycardia) (CMS/HCC) Orthostatic hypotension Primary malignant neoplasm of duodenum (CMS/HCC) [3] Family History Problem Relation Name Age of [...] Brother Artem Diabetes type II Brother Artem [4] Social History Tobacco Use Smoking status: Former Current packs/day: 0.00 Average packs/day: 1 pack/day for 15.9 years (15.9 ttl pk-yrs) Types: Cigarettes Start date: 10/14/1967 Quit date: 09/14/1983 Years since quittin.5 Smokeless tobacco: Never Substance Use Topics Alcohol use: Not Currently Comment: I rarely drink. Drug use: Never [5] Allergies Allergen Reactions Azithromycin Other Ciprofloxacin Other Lisinopril Cough [6] Current Outpatient Medications: allopurinol (Zyloprim) 300 mg tablet, Take 300 mg by mouth in the morning., Disp: , Rfl: aspirin 81 mg chewable tablet, Chew 1 tablet (81 mg) with breakfast for 90 doses., Disp: 90 tablet,Rfl: 0 bisoprolol (Zebeta) 5 mg tablet, TAKE 1 TABLET IN THE MORNING AND AT BEDTIME, Disp: 180 tablet, Rfl: 3 empagliflozin (Jardiance) 25 mg, Take 25 mg by mouth in the morning., Disp: , Rfl: furosemide (Lasix) 20 mg tablet, Take 20 mg by mouth in the morning., Disp: , Rfl: glimepiride (Amaryl) 4 mg tablet, Take 4 mg by mouth before breakfast., Disp: , Rfl: losartan (Cozaar) 100 mg tablet, Take 100 mg by mouth in the morning., Disp: , Rfl: omeprazole (PriLOSEC) [address] capsule, Take 40 mg by mouth before breakfast., Disp: , Rfl: rosuvastatin (Crestor) 20 mg tablet, TAKE 1 TABLET IN THE MORNING, Disp: 90 tablet, Rfl: 3 spironolactone (Aldactone) 25 mg tablet, Take 1 tablet (25 mg) by mouth in the morning., Disp: 30 tablet, Rfl: 0 tamsulosin (Flomax) 0.4 mg 24 hr capsule, Take 1 capsule by mouth in the evening., Disp: , Rfl: documented in this encounter Plan of Treatment DateTypeDepartmentCare Team (Latest Contact Info)Fzrsnaffybv45/25/2025 11:15 AM ESTOffice Visit [facility] [address] [place] [phone] Noe San MD [address] [place] [phone] NameTypePriorityAssociated DiagnosesOrder ScheduleBasic metabolic panelLab Routine Chronic systolic heart failure (CMS/HCC) Expected: 03/30/2025 (Approximate), Expires: 03/30/2026documented as of this encounter Visit Diagnoses Diagnosis Chronic systolic heart failure (CMS/HCC)- Primary Chronic systolic heart failure NICM (nonischemic cardiomyopathy) (CMS/HCC) NSVT (nonsustained ventricular tachycardia) (CMS/HCC) PVC (premature ventricular contraction) Other premature beats Orthostatic hypotension Coronary artery disease involving [place] coronary artery of [place] heart without angina pectoris Mixed hyperlipidemia Benign hypertensive heart disease with heart failure (CMS/HCC) documented in this encounter Care Teams Team MemberRelationshipSpecialtyStart DateEnd Date Tomeka Rosado MD [address] [place] [address] PCP - GeneralNurse Practitioner11/22/24documented as of this encounter
--- OUTSIDE RECORDS SUMMARY | 2025-03-29 08:20 | XMS_ITS | Continuity of Care Document ---
Author Organization [facility] Address [address] [place] [address] Phone Care Team Providers Care Business Attorney Name Role Phone Tomeka Rosado TOP EXECUTIVE-C Attending Provider Tomeka Rosado TOP EXECUTIVE-C Primary Care Provider [phone] Pj Isabel DO Attending Provider Care Teams Patient Care Team Team Status: Active Member Role Status Dates Tomeka Rosado , TOP EXECUTIVE-C Primary Care Provider Active Visit Care Team Team Status: Active Member Role Status Dates Tomeka Rosado TOP EXECUTIVE-C Attending Provider Active Start: February 14, 2025 Visit Care Team Team Status: Inactive Member Role Status Dates Tomeka Rosado , TOP EXECUTIVE-C Primary Care Provider Active Start: March 13, 2025 End: March 13, 2025Tomeka Rosado TOP EXECUTIVE-CAttending ProviderActiveStart: March 13, 2025 End: March 13, 2025 Patient Care Team Team Status: Active Member Role Status Dates Tomeka Rosado , TOP EXECUTIVE-C Primary Care Provider Active Start: March 20, 2025 Pj Isabel DOAttlinh ProviderActiveStart: March 20, 2025 Patient Care Team Team Status: Inactive Member Role Status Dates Tomeka Rosado , TOP EXECUTIVE-C Primary Care Provider Active Start: March 29, 2025 End: March 29, 2025Tomeka Rosado TOP EXECUTIVE-CAttending ProviderActiveStart: March 29, 2025 End: March 29, 2025 Chief Complaint and Reason for Visit Chief Complaint Admit Date Amb Documentation February 14, 2025 1:26pm 2M March 13, 2025 8:52am [facility]-heart cath March 29, 2025 1 0:51am Reason for Visit Admit Date Allergic rhinitis March 13, 2025 8:52am Bradycardia March 13, 2025 8:52am CKD stage 3a, GFR 45-59 ml/min March 13, 2025 8:52am Diabetic polyneuropathy asso ciated with type 2 diabetes mellitus March 13, 2025 8:52am [facility] 8:[facility] Hypertension March 13, 2025 8:52am Left ankle swelling March 13, 2025 8:52am Mixed hyperlipidemia March 13 8:52am Obesity (BMI 30-39.9) March 13 8:52am Slow transit constipation February 8:52am Type 2 diabetes mellitus, wi thout long-term current use of insulin March 13, 2025 8:52am Adrenal adenoma March 29, 2025 1 0:51am Chronic systolic heart failure March 152024 10:51am CKD stage 3a, GFR 45-59 ml/min March 152024 10:51am Hypertension March 29, 2025 1 0:51am Mixed hyperlipidemia March 29, 2025 10:51am Obesity (BMI 30-39.9) March 29, 2025 10:51am Type 2 diabetes mellitus, wi thout long-term current use of insulin March 29, 2025 10:51am Reason for Referral Referring Provider Name Referring Provider Address Referring Provider Phone Referral Date Requested Appointment Date Referral Reason Tomeka Rosado [address] [facility] [id number] Phone: September 2024M25.472 - Effusion, left ankleSeptember 2024M25.472 - Effusion, left ankle Allergies, Adverse Reactions, Alerts Allergen Type Severity Reaction Last Updated Verified Status lisinopril Allergy Mild Cough February 10:00am Yes Active azithromycin Allergy Unknown Unknown Reaction Septem 2024 10:00am Yes Active ciprofloxacin Allergy Unknown unknown February 142024 10:00am Yes Active erythromycin Allergy Severe GI intolerance Benigno r 2024 10:00am No Active Social History Smoking Status Unknown if ever smoked Observation Status Observation Response Date of Response Legal Sex Male (finding) Sex Assigned At [facility] 1949 Problems Active Problems Medical Problem Onset Date Status LLQ pain Unknown Active Nodule of lower lobe of left lung Unknown Active Encounter for subsequent maria t [facility] wellness visit (AWV) in Medicare patient Unknown Active Diverticulosis of sigmoid colon Unknown Active Screening for prostate cancer Unknown Ac tive Abnormal nuclear stress test Unknown Act devi Gout Unknown Active Acute sinusitis Unknown Active Frequent PVCs Unknown Active History of tobacco use Unknown Active Neuroendocrine carcinoma Unknown Active Abnormal electrocardiogram [ECG] [EKG] Unknown Active Anemia Unknown Active Arthritis Unknown Active Bradycardia Unknown Active Diverticulitis Unknown Active Edema Unknown Active Hypersomnia Unknown Active Hypoglycemia Unknown Active Left rotator cuff tear arthropathy Unknown Active Leukemoid reaction Unknown Active Mixed hyperlipidemia Unknown Active Chronic systolic heart failure Unknown A ctive Near syncope Unknown Active Other chronic pain Unknown Active Diabetic polyneuropathy associated with type 2 d iabetes mellitus Unknown Active Sinusitis Unknown Active Left ankle swelling Unknown Active Benign prostatic hyperplasia with lower urinary tract symptoms Unknown Active Pityriasis rosea Unknown Active Type 2 diabetes mellitus, without long-term curr ent use of insulin Unknown Active Type 2 diabetes mellitus wit h kidney complication, without long-term current use of insulin Unknown Active Adrenal adenoma Unknown Active Primary malignant neuroendocrine neoplasm of duo denum Unknown Active Pain in right knee Unknown Active CKD stage 3a, GFR 45-59 ml/min Unknown A ctive Balance problem Unknown Active Gastroesophageal reflux disease Unknown Active Tubular adenoma of colon Unknown Active Esophageal dysphagia Unknown Active Left adrenal mass Unknown Active Allergic rhinitis Unknown Active Renal cyst, left Unknown Active Hypertension Unknown Active Class 1 obesity with serious comorbidity in adul t Unknown Active Slow transit constipation Unknown Active Fall Unknown Active Chronic sinusitis Unknown Active Obesity (BMI 30-39.9) Unknown Active NSVT (nonsustained ventricular tachycardia) Unkn own Active Medications Medication Status Dose Units Route Directions Qty Days St art Date Stop Date End Date Instructions Adherence Furosemide 20 mg tablet Discontinued 20 MG PO Lizzy ly 90 February 15, 2025 4:26pmSeptember 2024 4:10pmLosartan 100 mg tablet Jrxcmcrluehk578CAMNIfarn06Emocwdgjt 3rd, 2025 6:00pmSeptember 2024 4:10pm Furosemide 20 mg iujapbDgzhrn47SXUFRpbnk37Gzuszqqxa 4th, 2025 4:10pmUnknown Losartan 100 mg jbehqsXrwxtngiefih811UDTBBdcsq63Nvqxmajij 2024 4:10pm March 29, 2025 6:26amEmpagliflozin (Jardiance) 25 mg bvqmcgDxnawmwxnsdd40TF FKOjjpm34Amofvlubn 10th, 2025 12:00amSeptember 2024 9:42amAmoxicillin 875 mg jfwjhnKmdggx316WTQZYyvcr 12 jdkii11Mqalbav 8th, 2025 12:00amUnknownOmeprazole 40 mg capsule,delayed release(DR/EC)Vpwzxaiwyspa67TXYIZbxhuKkjnmzutp 2024 12:00amSeptember 2024 9:42amBisoprolol Fumarate 5 mg tabletDiscontinued5 MGPODailySeptember 2024 12:00amSeptember 2024 9:42amTamsulosin 0.4 mg capsuleActiveMGPOSeptember 2024 12:00amUnknownGlimepiride 4 mg tablet Yfkpjbvxkdoc4BNGCEesmzGlegtjanc 2024 12:00amSeptember 2024 9:42am Allopurinol 300 mg cnuoieKtihahrmyqnl756ZGDMDkrxuAryaguvll 2024 12:00am March 13, 2025 9:42amFluticasone Propionate (Flonase Allergy Relief) 50 mcg/actuation spray,faqfttxaeaTtnzxzhojtvl4WPGQNXSBISUECWAXihzoAgsjeswdi 2024 12:00amSeptember 2024 9:42amadminister into each nostrilRosuvastatin 20 mg nzbpogMbvwiubabtjm41ZBPGLtiluSzhcwxdmy 2024 12:00amSeptember 2024 9:42amAllopurinol 300 mg sedswtFfpqpf865ZSPREyhsw99Pschoiqer 2024 9:39amUnknownBisoprolol Fumarate 5 mg bhrngvRrgxbdrafack9ETZDThjhx63Zdsegfjbk 2024 9:40amOctober 2024 6:26amEmpagliflozin (Jardiance) 25 mg tablet Cwcclp25USHFXvyeg34Mtjnkvbmo 2024 9:40amUnknownFluticasone Propionate (Flonase Allergy Relief) 50 mcg/actuation spray,cdxtyarmkkMvxlny2ASJCNVBUSVAYBEP Ubbmr92Abruvirpn 2024 9:40amadminister into each nostrilUnknownGlimepiride 4 mg prgqmxQxfpdq8ZXMRSpggp58Cdjinfnpi 2024 9:41amUnknownOmeprazole 40 mg capsule,delayed release(DR/EC)Xwmawf67FVNQCgfin80Hxhqafxmp 2024 9:41am UnknownRosuvastatin 20 mg xwbqmxHpxdny25QOCJ.q dj73Snvnvivdo 2024 9:41am UnknownFurosemide 20 mg pgjegbYfviagqajvoz32GIXWTzgnsAfwxvagxu 2nd, 2025 12:00am February 14, 2025 1:30pmLosartan 100 mg oeqiugQuhwxyoiqokr146BRULGtjpx February 14, 2025 12:00amSept2024 1:30pmFurosemide 20 mg tablet Sonnhxqbcghy27HZSUNygjz29Makklxacv 2nd, 2025 1:29pmSept2024 4:26pm Losartan 100 mg weflhiMcbfohhrxcqb561ZAHJRzckg94Zplcqhxzp 2nd, 2025 1:29pm February 15, 2025 6:01pmSpironolactone (Aldactone) 25 mg rxekufGcghzc20EPZP DailyOctober 2024 12:00amComplies with drug therapyAspirin 81 mg tablet Pvqats86RTAHQrhedLtjggyn 2024 12:00amComplies with drug therapySacubitril- Valsartan (Entresto) 24-26 mg vublgwWtvwcs2PKVGQPtort dailyOctober 2024 12:00amComplies with drug therapy Relevant Diagnostic Tests and/or Laboratory Data Laboratory Results Test Collection Date/Time Result Date/Time Result Interpretation Reference Range Result Comment Performing Site Bedside Hemoglobin A1c March 13, 2025 9:16am Sep tember 2024 9:16am 7.1 % B-Type Natriuretic PeptideOctober 2024 2:40amOctober 2024 2:82nd2295.0 pg/mLAbove upper panic limits<=1800.0RESULTS CALLED TO SEVERIANO ARANGO RN @BY Dominique Reinoso at 0403D-Dimer Quantitative (PE/DVT)March 20, 2025 2:40amOctober 2024 2:40am0.69 mg/L FEUAbove upper panic limits<=0.59RESULTS CALLED TO CONTRERAS MOLINA RN @BY Dominique De Andaat 0318Increases in D-Dimer concentration observed withthromboembolic events can be variable due to localization,size, and age of the thrombus. Therefore, a thromboembolicevent cannot be diagnosed with certainty on the basis of thereference range. D-Dimers may also be elevated for a varietyof disorders including advanced age, , coronarydisease, cancer, liver disease, infection, inflammation,hematoma, DIC, trauma, post-surgery,diabetes, thrombolyticor anticoagulant therapy, stress, and generalizedhospitalization.Basophils # (Auto) March 20, 2025 2:40amOctober 2024 2:40am0.0 10 3/uL0.0-0.1SARS-CoV-2 Ag (CV2AG)March 20, 2025 2:49amOctober 2024 2:49amNEGATIVENEGATIVEThis test has not been FDA cleared or approved, but has beenauthorized by the FDA under an Emergency Use Authorization(EUA) for use by authorized laboratories certified underIA that meet the requirements to perform moderate or highcomplexity testing. This test has been authorized only forthe detection of proteins from SARS-CoV-2, not for any otherviruses or pathogens. The emergency use of this t est isauthorized for the duration of the declaration thatcircumstances exist justifying the authorization ofemergency use of in vitro diagnostic tests for detectionand/or diagnosis of Covid-19 under section 564(b)(1) of theAct, 21 U.S.C. 360bbb-3(b)(1), unless the declaration isterminated or authorization is revoked sooner.Bedside Influenza Type A AntigenOct2024 2:49amOctober 2024 2:49amNegativeNegative for Flu A protein antigen. Infection due to Flu Acannot be ruled out. Flu A antigen in thesample may bebelow the detection limit of the test.Thyroid Stimulating Hormone 3rd GenOct2024 7:52am March 20, 2025 7:52am1.983 u[iU]/mL0.358-3.740Cholesterol/HDL RatioOct2024 7:52amOct2024 7:52am3.63.3 - 4.4 LOW RISK4.4 - 7.1 AVERAGE RISK7.1 - 11.0 MODERATE RISK>11.0 HIGH RISKMagnesium LevelOct2024 7:52amOct2024 7:52am2.2 mg/dL1.8-2.4Phosphorus LevelOct2024 7:52amOct2024 7:52am4.0 mg/dL2.6-4.7Anion GapOct2024 7:52am March 20, 2025 7:52am15.4Troponin I High SensitivityOct2024 3:59pm March 20, 2025 3:59pm85.0 pg/mLAbove upper panic limits4.0-76.1RESULTS CALLED TO MISSY VILLATORO RN at 1625CUT-OFF POINTS HAVE BEEN ESTABLISHED BASED ON THE FOURTHUNIVERSAL DEFINITION OF MYOCARDIAL INFARCTION. THE UPPERREFERENCE LIMIT (URL) OF TROPONIN, DEFINED ASTHE 99THPERCENTILE OF cTnI DISTRIBUTION IN A REFERENCE POPULATION,HAS BEEN CONFIRMED THE DECISION THRESHOLD FOR MIDIAGNOSIS.99TH PERCENTILE = 76.2 PG/MLNOTE: HIGH-SENSITIVITY TROPONIN ASSAY IS NOTINTENDED TO BEUSED IN ISOLATION BUT SHOULD BE INTERPRETED IN CONJUNCTIONWITH OTHER DIAGNOSTIC AND CLINICAL INFORMATION.Basophils (%) (Auto)March 20, 2025 2:40amOct2024 2:40am0.2 %0.2-2.0Bedside Influenza Type B Antigen March 20, 2025 2:49amOct2024 2:49amNegativeNegative for Flu B protein antigen. Infection due to Flu Bcannot be ruled out. Flu B antigen in the sample may bebelow the detection limit of the test.Cholesterol LevelOct2024 7:52amOct2024 7:78jx760 mg/dL<=200BUN/Creatinine RatioOct2024 7:52amOctober 2024 7:52am21.9Eosinophils # (Auto)March 20, 2025 2:40amOctober 2024 2:40am0.2 10 3/uL0.0-0.7HDL CholesterolOctober 2024 7:52amOctober 2024 7:52am31 mg/dLBelow low xdlqed37-71> or =60 mg/dl - LOW CARDIOVASCULAR RISK<40 mg/dl - HIGH CARDIOVASCULAR RISKBlood Urea Nitrogen March 20, 2025 7:52amOctober 2024 7:52am28.0 mg/dLAbove high normal 7.0-18.0Eosinophils (%) (Auto)March 20, 2025 2:40amOctober 2024 2:40am 1.2 %0.9-7.0LDL Cholesterol, CalculatedOct2024 7:52amOctober 2024 7:52am58.0 mg/dL<100 mg/dl CGWMUZB702-846 mg/dl NEAR OR ABOVE RNOUTUF238-003 mg/dl BORDERLINE SUJF564-897 mg/dl HIGH>190 mg/dl VERY HIGHCalcium LevelOctober 2024 7:52amOctober 2024 7:52am9.3 mg/dL8.5-10.1HematocritOctober 2024 2:40amOctober 2024 2:40am46.2 %42.0-54.0Triglycerides LevelOctober 2024 7:52amOctober 2024 7:55yu561 mg/dL<=150Chloride LevelOctober 2024 7:52amOctober 2024 7:44wb530 mmol/W44-187VoggadifnpGzndnsf 2024 2:40amOctober 2024 2:40am15.1 g/dL14.0-18.0VLDL CholesterolOctober 2024 7:52amOctober 2024 7:52am22.8 mg/dLCarbon Dioxide LevelOctober 2024 7:52amOctober 2024 7:52am25.1 mmol/L21.0-32.0Immature Granulocyte # (Auto)March 20, 2025 2:40amOctober 2024 2:40am0.04 10 3/uLAbove high normal0.00-0.03CreatinineOctober 2024 7:52amOctober 2024 7:52am1.28 mg/dL0.70-1.30Immature Granulocyte % (Auto)March 20, 2025 2:40amOctober 2024 2:40am0.3 %0.0-0.5Estimated GFR ()March 20, 2025 7:52am March 20, 2025 7:52am>60>=60 mL/min/1.73m 2Lymphocytes # (Auto)March 20, 2025 2:40amOctober 2024 2:40am1.4 10 3/uL1.2-3.8Estimated GFR (Non- AmericanOctober 2024 7:52amOctober 2024 7:70zy34Xpttt low normal>=60 mL/min/1.73m 2Lymphocytes (%) (Auto)March 20, 2025 2:40amOctober 2024 2:40am10.8 %Below low uqlfhg30.5-60.0Glucose LevelOctober 2024 7:52am March 20, 2025 7:64ww658 mg/dLAbove high knextg67-922Ktsx Corpuscular HemoglobinOctober 2024 2:40amOctober 2024 2:40am29.2 pg25.9-34.0 Potassium LevelOctober 2024 7:52amOctober 2024 7:52am4.5 mmol/L3.5-5.1 Mean Corpuscular Hemoglobin ConcentOctober 2024 2:40amOctober 2024 2:40am32.7 g/dL29.9-35.2Sodium LevelOctober 2024 7:52amOctober 2024 7:19nu226 mmol/N491-621Sxsp Corpuscular VolumeOctober 2024 2:40amOctober 2024 2:40am89.2 fL80.0-94.0Monocytes # (Auto)March 20, 2025 2:40am March 20, 2025 2:40am0.8 10 3/uL0.3-0.8Monocytes (%) (Auto)March 20, 2025 2:40amOctober 2024 2:40am6.0 %1.7-12.0Mean Platelet VolumeOct2024 2:40amOctober 2024 2:40am10.3 fL9.5-13.5Neutrophils # (Auto)March 20, 2025 2:40amOctober 2024 2:40am10.9 10 3/uLAbove high normal1.4-6.5 Neutrophils (%) (Auto)March 20, 2025 2:40amOctober 2024 2:40am81.5 % Above high qxyvbk33.0-75.0Platelet CountOct2024 2:40amOctober 2024 2:76jo957 10 3/hV309-614Mpd Blood CountOctober 2024 2:40amOctober 2024 2:40am5.18 10 6/uL4.70-6.10Red Cell Distribution WidthOctober 2024 2:40amOctober 2024 2:40am15.8 %Above high itpjrs00.0-15.0Corrected White Blood CountOctober 2024 2:40amOctober 2024 2:40am13.3 10 3/uLAbove high normal4.0-11.0 Vital Signs Vital Reading Result Reference Range Collection Date/Time Height 70 [in_i] March 13, 2025 9:67ydCoehbh848.85 kgSeptember 2024 9:03amBody Bndxkahijar05.5 [degF]97.6-99.0Sept2024 9:03amHeart Rate40 /min 60-100Sept2024 9:03amRespiratory rate18 /kwf68-85Titnkdpxp 29th, 2025 9:03amOxygen saturation by Pulse %95-100Sept2024 9:03amBP Alnvdpdx407 mm[Hg]100-140Sept2024 9:03amBP Gaznhkich08 mm[Hg]60-100September 2024 9:03amBMI (Body Mass Index)33.5 kg/e6Bepqwnbim 2024 9:04zqPdpsdz906.04 kgOctlexington [facility] 2024 11:19amBody Tbmkyaogyhw04.5 [degF]97.6-99.0October 2024 11:19amHeart Rate72 /dmh49-016Wktpzcy 2024 11:19amRespiratory rate18 /csd94-63Mqryzjv 2024 11:19amOxygen saturation by Pulse aurwgrhj34 %95-100October 2024 11:19amBP Tyhctclz390 mm[Hg]100-140Oct2024 11:19amBP Whfkaeqdq12 mm[Hg]60-100Octlexington shriners hospital 2024 11:19am Advance Directives Advance Directive Response Recorded Date/ Time Advance Directives No November 29 1:34pm Insurance Providers Guarantor Brent Car Address [address] [place], [place] [address]Contact Info.Home Phone: Payer Policy Id Subscriber's Name Subscriber Id Effectiv e Date Expiration Date Medicare [id number] Brent Car [id number] [facility] [id number] F [id number] Encounters Encounter Location(s) Arrival/Admit Date Discharge/Depart Date Provider(s) Non-patient / Non-visit -[facility] Family Medicine [facility] 2024 1:26pm Tomeka Rosado NP-CDeparted Physician/Provider Office Visit-[facility] 8:[facility] 2024 9:34aSHELLEY PhoenixCNon-patient / Vve-dlqet-Mvcqd [facility] 2024 2:40amRoss Zhou DODeparted Physician/Provider Office Visit-[facility] 10:51amOctober 2024 12:19pmLisa J Aichholz , TOP EXECUTIVE-C Recent Diagnosis Onset Date Admit Date Allergic rhinitis Unknown February 8:52am Bradycardia Unknown March 13, 2025 8:52am CKD stage 3a, GFR 45-59 ml/min Unknown S eptember 2024 8:52am Diabetic polyneuropathy asso ciated with type 2 diabetes mellitus Unknown March 13, 2025 8:52am Gastroesophageal reflux disease Unknown March 13, 2025 8:52am Hypertension Unknown March 13, 2025 8:52am Left ankle swelling Unknown March 132024 8:52am Mixed hyperlipidemia Unknown February 142024 8:52am Obesity (BMI 30-39.9) Unknown March 13, 2025 8:52am Slow transit constipation Unknown 2024 8:52am Type 2 diabetes mellitus, wi thout long-term current use of insulin Unknown March 13, 2025 8:52am Adrenal adenoma Unknown March 29 10:51am Chronic systolic heart failure Unknown O ctober 2024 10:51am CKD stage 3a, GFR 45-59 ml/min Unknown O ctober 2024 10:51am Hypertension Unknown March 29 10:51am Mixed hyperlipidemia Unknown March 10:51am Obesity (BMI 30-39.9) Unknown March 292024 10:51am Type 2 diabetes mellitus, wi thout long-term current use of insulin Unknown March 29, 2025 10:51am Assessments Diagnosis Onset Date Resolution Status Admit Date Allergic rhinitis acutept2024 8:52amBradycardiaacuteSept2024 8:52amCKD stage 3a, GFR 45-59 ml/minacutept2024 8:52amDiabetic polyneuropathy associated with type 2 diabetes mellitusacutept2024 8:52amGastroesophageal reflux diseaseacutept2024 8:52am HypertensionacuteSept2024 8:52amLeft ankle swellingacutept2024 8:52amMixed hyperlipidemiaacuteSept2024 8:52amObesity (BMI 30-39.9)acutept2024 8:52amSlow transit constipationacute March 13, 2025 8:52amType 2 diabetes mellitus, without long-term current use of insulinacuteSept2024 8:52amAdrenal adenomaacuteOctober 2024 10:51amChronic systolic heart failureacuteOctober 2024 10:51amCKD stage 3a, GFR 45-59 ml/minacuteOctober 2024 10:51amHypertensionacute March 29, 2025 10:51amMixed hyperlipidemiaacuteOctober 2024 10:51am Obesity (BMI 30-39.9)acuteOctober 2024 10:51amType 2 diabetes mellitus, without long-term current use of insulinacuteOctober 2024 10:51am Plan of Treatment Author Tomeka Rosado [facility] CenterAuthoredSept2024 9:44amPlease check blood pressure daily and record DASH diet Limit caffeine Take medication as directed Contact office if chest pain, pressures, dizziness, shortness of breath, swelling in the legs Recommend slow position changes if you develop dizziness with position changes current meds: losartan, bisoprolol freq inspection of feet, proper fitting shoes, control diabetes control a1c, control BP, avoid nephrotoxic drugs when possible Recommendations: freq small meals, nothing to eat or drink at least 2 hours prior to bed, limit caffeine, alcohol, as well as spicy foods. Meds to limit or avoid if possible: NSAIDS Elevate the HOB if possible current meds: omeprazole on statin therapy check labs yealry and prn Discussed with patient their BMI (actual vs recommended). We have discussed lifestyle modifications: attempts to perform phsyical activity as chronic conditions allow, monitor dietary intake: increasing protein/fruits/veggies and lowering carb intake (unless contraindicated). Limit sodas, juices, sugary drinks, as well as alcohol consumption. Check blood sugars daily, notify the office if <70 or > 200. Take medications (pills or insulin) as directed. Monitor for s/s of low blood sugar (sweaty, dizziness, nausea, vomiting, or shakiness). Watch for increase thirst, urination, and appetite as these can be signs of high blood sugar. Inspect your feet frequently monitor for open wounds, wear proper fitting shoes as well. Pt should attempt to remain as physical active as chronic conditions allow, as well as trying to follow a diet lower in carbohydrates, and simple sugars. 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 Take medications (pills or insulin) as directed. Monitor for s/s of low blood sugar (sweaty, dizziness, nausea, vomiting, or shakiness). Watch for increase thirst, urination, and appetite as these can be signs of high blood sugar. Inspect your feet frequently monitor for open wounds, wear proper fitting shoes as well. Pt should attempt to remain as physical active as chronic conditions allow, as well as trying to follow a diet lower in carbohydrates, and simple sugars. current meds: jardiance, amaryl, losartan, statin a1c: 7.1% 03/13/25, 7.0% 11/28/24 control a1c, control BP, avoid nephrotoxic drugs when possible on statin therapy check labs yealry and prn Discussed with patient their BMI (actual vs recommended). We have discussed lifestyle modifications: attempts to perform phsyical activity as chronic conditions allow, monitor dietary intake: increasing protein/fruits/veggies and lowering carb intake (unless contraindicated). Limit sodas, juices, sugary drinks, as well as alcohol consumption. recent hospitalization for dyspnea/chest pain: reviewed [facility] notes, was transferred to [facility] had heart cath, no stents needed, statin and asa for life ECHO: 04/08 EF 20% and grade 1 diastolic dysfunction recently started on entresto has been having imaging for renal cyst Future Tests Future scheduled test information is unavailable Pending Tests Pending diagnostic test information is unavailable Future Visits Future appointment information is unavailable Referrals to Other Providers Reason for Referral Referral Start Date Provider Provider Contact Information Provider Address M25.56 - Effusion, left ankle March 13, 2025 Jonathan Cowan DPM Work Phone: [facility] [place] [phone] Future Procedures Future procedure information is unavailable Future Medications Future medication information is unavailable Patient Instructions Patient instructions are unavailable
--- OUTSIDE RECORDS SUMMARY | 2025-03-29 09:30 | XMS_ITS | Encounter Summary ---
Author Organization [facility] Healthcare Address [address] [place] [address] Care Team Providers Care Gradall Operator Name Role Phone Peggy Gatica NP Unavailable [phone] Gerald Low MD Primary Care Provider [phone] Reason for Referral * Clinic-Administered Medication (Routine) - ClosedSpecialtyDiagnoses / ProceduresReferred By ContactReferred To ContactOrthopaedic Surgery Diagnoses Left rotator cuff tear arthropathy Arthritis of left shoulder Procedures L Inj/Asp: L glenohumeral Fahad Sears PA [address] [place] [address] Phone: tel: fax: Referral IDStatusReasonStart DateExpiration DateVisits RequestedVisits [id number]/15/20254/ Reason for Visit * ReasonCommentsPain Encounter Details DateTypeDepartmentCare Team (Latest Contact Info)Emyskcsloay63/15/2025 9:30 AM EDTOffice Visit [facility] [address] [place] [address] Fahad Sears PA [address] [place] [address] Acute pain of left shoulder (Primary Dx); Left rotator cuff tear arthropathy; Arthritis of left shoulder Social History Tobacco UseTypesPacks/DayYears UsedDateSmoking Tobacco: [id number] - 1984Passive Smoke Exposure: NeverSmokeless Tobacco: NeverAlcohol UseStandard Drinks/WeekCommentsYes0 (1 standard drink = 0.6 oz pure alcohol)[id number] Health LiteracyAnswerDate RecordedHow often do you need to have someone help you when you read instructions, pamphlets, or other written material from your doctor or pharmacy?Kcousm1007/06/2024Humiliation, Afraid, Rape, and Kick questionnaireAnswerDate RecordedWithin the last year, have you been afraid of your partner or ex-partner?No02/18/2023Within the last year, have you been humiliated or emotionally abused in other ways by your partner or ex-partner?No 02/18/2023Within the last year, have you been kicked, hit, slapped, or otherwise physically hurt by your partner or ex-partner?No02/18/2023Within the last year, have you been raped or forced to have any kind of sexual activity by your part ner or ex-partner?No02/18/2023Social Connection and Isolation PanelAnswerDate RecordedIn a typical week, how many times do you talk on the phone with family, friends, or neighbors?More than three times a week07/06/2024How often do you get together with friends or relatives?Once a week07/06/2024How often do you attend rastafari or scientology services?Patient /22/2025Do you belong to any clubs or organizations such as rastafari groups, unions, fraternal or athletic roseline ups, or school groups?No07/06/2024How often do you attend meetings of the clubs or organizations you belong to?Never07/06/2024re you , , , , never , or living with a partner?Hhvvmdd3607/06/2024 AUDIT-CAnswerDate RecordedQ1: How often do you have a drink containing alcohol? Monthly or less07/06/2024Q2: How many drinks containing alcohol do you have on a typical day when you are drinking?1 or Q3: How often do you have six or more drinks on one occasion?Never07/06/2024Overall Financial Resource Strain (CARDIA)AnswerDate RecordedHow hard is it for you to pay for the very basics like food, housing, medical care, and heating?Not hard at all07/06/2024PHQ-2 AnswerDate RecordedPatient Health Questionnaire-2 [id number] mountain hospital, inc. [place] of Occupational Health - Occupational Stress QuestionnaireAnswerDate RecordedDo you feel stress - tense, restless, nervous, or anxious, or unable to sleep at night because yourmind is troubled all the time - these days?Only a aexhmx8607/06/2024Exercise Vital SignAnswerDate RecordedOn average, how many days per week do you engage in moderate to strenuous exercise (like a brisk walk)?2 days07/06/2024On average, how many minutes do you engage in exercise at this level?30 min07/06/2024Hunger Vital SignAnswerDate RecordedWithin the past 12 months, you worried that your food would run out before you got the money to buy more.Never true07/06/2024Within the past 12 months, the food you bought just didn't last and you didn't have money to get more.Never true07/06/2024PRAPARE - TransportationAnswerDate RecordedIn the past 12 months, has lack of transportation kept you from medical appointments or from getting medications?No 07/06/2024In the past 12 months, has lack of transportation kept you from meetings, work, or from getting things needed for daily living?No07/06/2024 Housing Stability Vital SignAnswerDate RecordedIn the last 12 months, was there a time when you were not able to pay the mortgage or rent on time?No02/18/2023In the last 12 months, how many places have you lived?In the last 12 months, was there a time when you did not have a steady place to sleep or slept in ashelter (including now)?No02/18/2023Housing Stability Vital SignAnswerDate RecordedIn the last 12 months, was there a time when you were not able to pay the mortgage or rent on time?No07/06/2024In the past 12 months, how many times have you moved where you were living?t any time in the past 12 months, were you homeless or living in a long term (including now)?No07/06/2024Sex and Gender InformationValueDate RecordedSex Assigned at BirthNot on fileLegal HgtOvfr7008/27/2022 7:35 PM EDTGender FhehywitYoks64/15/2023 7:35 PM EDTSexual OrientationNot on filedocumented as of this encounter Progress Notes * GEMA Mccartney - 03/29/2025 9:30 AM EDTAssociated Order(s): L Inj/Asp: L glenohumeral Post-Procedure Diagnose(s): Left rotator cuff tear arthropathy; Arthritis of left shoulder Images from the original note were not included. Orthopedic Office note: NAME: Brent Car : 1950 (EST PT) RECHECK LT SHOULDER PAIN - S/P [facility] SHOULDER INJ 11/20/24; [facility] PT RECENTLY DX WITH HEART FAILURE; WEARING A HEART MONITOR TODAY XRAY LT SHOULDER EPIC 04/13/24 EPIC [facility] SHOULDER INJ 08/12/24, 11/20/24 DEPO INJECTION 04/13/24 HX LT SHOULDER SCOPE (RCR) PER DR LICEA ~2003 PT STATES HE NOTES SOME INTERMITTENT DISCOMFORT THE LAST COUPLE WEEKS- INCREASE PAIN WORKING ABOVE SHOULDER LEVEL AND REACHING BACK- PT IS REQUESTING A REPEAT INJ TODAY- +WEAKNESS LT HAND DOMINANT Shoulder Musculoskeletal Exam Inspection Left Left shoulder inspection is normal. Ecchymosis: none Peripheral edema: none Atrophy: none Masses: none Palpation Left Crepitus: mild Increased warmth: none Tenderness: present Anterior shoulder: mild Posterior shoulder: none Clavicle: none AC joint: mild Sternoclavicular joint: none Rotator cuff: mild Greater tuberosity: none Trapezius: none Medial scapula: none Superior pole of scapula: none Inferior pole of scapula: none Bicipital groove: none Proximal biceps: none Distal biceps: none Lateral arm: mild Elbow: none Range of Motion Right Right shoulder active abduction: + pain passing 90 degrees. Left Left shoulder range of motion is normal. Active ROM: pain. Passive ROM: pain. Active forward elevation: 160. Passive forward elevation: 170. Shoulder active abduction: 160. Passive abduction: 170. Active external rotation at side: 70. Passive external rotation at side: 80. Internal rotation: L4. Strength Left External rotation: 4+/5. External rotation is affected by pain. Internal rotation: 5/5. Abduction: 4+/5. Abduction is affected by pain. Biceps: 4+/5. Triceps: 5/5. Neurovascular Left Radial pulse: normal and 2+ Capillary refill: <3 sec Axillary nerve sensory distribution: normal Scapula Left Left shoulder scapula is normal. Position: normal Winging: none Special Tests Left Rotator Cuff Signs Neer's test: positive Shea test: positive Painful arc test: positive Biceps/fabby Signs Speed's test: negative General Constitutional: appears stated age Neurological: alert and oriented x3 Orders Placed This Encounter Procedures L Inj/Asp This order was created via procedure documentation L Inj/Asp: L glenohumeral on 03/29/2025 9:58 AM Indications: pain Details: 22 G needle, ultrasound-guided posterior approach Medications: 2 mL bupivacaine PF 0.5 %; 40 mg methylPREDNISolone acetate 40 MG/ML Outcome: tolerated well, no immediate complications The shoulder was prepped with isopropyl alcohol. Allowed time to fully dry. Under ultrasound guidance the glenohumeral joint was identified. A plain was established to avoid any neurovascular structures or lung, a 22 G needle was placed into the joint under ultrasound guidance and image captured topatients chart demonstrating proper placement in glenohumeral joint. I then injected 40 mg depomedrol and 2 ml of 0.5% bupivacaine Pt tolerated this well and neurovascular intact s/p injection. . ( Codes 18673) Procedure, treatment alternatives, risks and benefits explained, specific risks discussed. Consent was given by the patient. Patient was prepped and draped in the usual sterile fashion. Results ICD-10-CM 1. Acute pain of left shoulder M25.512 2. Left rotator cuff tear arthropathy M75.102 M12.812 3. Arthritis of left shoulder M19.012 Assessment & Plan Left shoulder pain: History of left shoulder arthritis, likely rotator cuff arthropathy. Excellent range of motion and strength given underlying circumstances. Pain previously felt all the time improved with the injection, and he does not want the return of that pain. Soreness usually from overuse and activity. No signs or symptoms of infection. Wearing a quality assurance monitor chassis after a recent diagnosis of heart failure andhas been on medication to hopefully correct this. Treatment plan: Intra-articular injection requested again today for symptoms. Less steroid would bebetter for the assisted, but shoulder could be injected every 4 months if symptoms needed, as he is trying to avoid any thought of surgery. Clinical decision making: Follow-up on a p.r.n. basis if symptoms flare. Follow-up: Follow-up on a p.r.n. basis if symptoms flare. Questions answered in laymen terms at the bedside. The diagnosis, home exercise plan and any ongoing restrictions/ recommendations reviewed. If unable to be reached in office, I recommend evaluation at nearest Emergency Room if any symptoms worsened or new symptoms develop for requiring urgent evaluation. Visit was preformed using [employer]-regional airline pilot speech recognition. documented in this encounter Plan of Treatment DateTypeDepartmentCare Team (Latest Contact Info)Fsfvusqbzrk29/31/2025 2:00 PM EDTOffice Visit [facility] [address] [place] [address] Jonathan Cowan DPM [address] [address] documented as of this encounter Procedures Procedure NamePriorityDate/TimeAssociated DiagnosisCommentsPR ARTHROCENTESIS ASPIR&/INJ MAJOR JT/BURSA W/RPEhsmjvw26/15/2025 9:58 AM EDT Left rotator cuff tear arthropathy Arthritis of left shoulder documented in this encounter Results * [place] ARTHROCENTESIS ASPIR&/INJ MAJOR JT/BURSA W/US (03/29/2025 9:58 AM EDT) Narrative Fahad Sears PA - 03/29/2025 9:58 AM EDT GEMA Mccartney 03/29/2025 10:05 AM L Inj/Asp: L glenohumeral on 03/29/2025 9:58 AM Indications: pain Details: 22 G needle, ultrasound-guided posterior approach Medications: 2 mL bupivacaine PF 0.5 %; 40 mg methylPREDNISolone acetate 40 MG/ML Outcome: tolerated well, no immediate complications The shoulder was prepped ??with isopropyl alcohol. Allowed time to fully dry. Under ??ultrasound guidance the glenohumeral joint ??was identified. A plain was established to avoid any neurovascular structures or lung, a 22 G needle was placed into the joint under ultrasound guidance and image captured to patients chart demonstrating proper placement in glenohumeral joint. I then injected 40 mg depomedrol and 2 ml of 0.5% bupivacaine ??Pt tolerated this well and neurovascular intact s/p injection. . ( Codes 76571) Procedure, treatment alternatives, risks and benefits explained, specific risks discussed. Consent was given by the patient. Patient was prepped and draped in the usual sterile fashion. Authorizing ProviderResult TypeResult StatusMattheaby Cho [facility] CL[facility]IC/BEDSIDE ORDERABLESFinal Result documented in this encounter Visit Diagnoses Diagnosis Acute pain of left shoulder- Primary Left rotator cuff tear arthropathy Arthritis of left shoulder documented in this encounter Administered Medications Medication OrderMAR ActionAction DateDoseRateSite bupivacaine PF (Marcaine) 0.5 % injection 2 mL 2 mL, Injection, Once PRN Procedure, Starting on Thu03/29/25 at 0958, For 1 dose Indications:Left rotator cuff tear arthropathy,Arthritis of left shoulderGiven 03/29/2025 9:58 AM EDT2 mL methylPREDNISolone acetate (DEPO-Medrol) injection 40 mg 40 mg, Intra-articular, Once PRN Procedure, Starting on Thu03/29/25 at 0958, For 1 dose Indications:Left rotator cuff tear arthropathy,Arthritis of left shoulderGiven 03/29/2025 9:58 AM EDT40 mgdocumented in this encounter Additional Health Concerns AssessmentNoted TimePHQ-9 Depression Total Score: 13001/09/2025 8:34 AM EDT documented as of this encounter Care Teams Team MemberRelationshipSpecialtyStart DateEnd Date Gerald Low MD [address] [place] [address] PCP - GeneralFamily Pqujyrmy18/30/24 Peggy Gatica NP Nurse PractitionerFamily Llrfpueb76/29/24documented as of this encounter
--- OUTSIDE RECORDS SUMMARY | 2025-03-31 13:40 | XMS_ITS | Encounter Summary ---
Author Organization [facility] Address [address] [place] [address] Care Team Providers Care Fusing Machine Operator Name Role Phone Peggy Gatica PROGRAM SUPPORT ASSISTANT Unavailable [phone] Gerald Low MD Primary Care Provider [phone] Reason for Visit * ReasonCommentsAnkle Pain * Consultation (Routine) - ClosedSpecialtyDiagnoses / ProceduresReferred By ContactReferred To ContactPodiatry Diagnoses Effusion, left ankle Procedures [facility] Tomeka Rosado NP [address] [place] [address] Phone: tel: fax: Jonathan Cowan DPM [address] [address] Phone: tel: fax: Referral IDStatusReasonStart DateExpiration DateVisits RequestedVisits [id number]/29/20253/ Encounter Details DateTypeDepartmentCare Team (Latest Contact Info)Pfdkduxsdfn01/17/2025 1:40 PM EDTOffice Visit [facility] [address] [place] [address] Jonathan Cowan DPM [address] [address] DJD (degenerative joint disease), ankle and foot, left (Primary Dx); Other specified disorders of synovium, left ankle and foot Social History Tobacco UseTypesPacks/DayYears UsedDateSmoking Tobacco: [id number] - 1983Passive Smoke Exposure: NeverSmokeless Tobacco: Never Tobacco Cessation:Counseling Given: Yes Alcohol UseStandard Drinks/WeekCommentsYes0 (1 standard drink = 0.6 oz pure alcohol)[id number] Health LiteracyAnswerDate RecordedHow often do you need to have someone help you when you read instructions, pamphlets, or other written material from your doctor or pharmacy?Fjdsee9407/06/2024Humiliation, Afraid, Rape, and Kick questionnaireAnswerDate RecordedWithin the last year, have you been afraid of your partner or ex-partner?No02/18/2023Within the last year, have you been humiliated or emotionally abused in other ways by your partner or ex-partner?No02/18/2023Within the last year, have you been kicked, hit, slapped, or otherwise physically hurt by your partner or ex-partner?No02/18/2023Within the last year, have you been raped or forced to have any kind of sexual activity by your partner or ex-partner?No02/18/2023Social Connection and Isolation Panel AnswerDate RecordedIn a typical week, how many times do you talk on the phone with family, friends, or neighbors?More than three times a week07/06/2024How often do you get together with friends or relatives?Once a week07/06/2024How often do you attend shinto or yazidi services?Patient fnobmgfg72/22/2025Do you belong to any clubs or organizations such as shinto groups, unions, fraternal or athletic groups, or school groups?No07/06/2024How often do you attend meetings of the clubs or organizations you belong to?Never07/06/2024re you , , , , never , or living with a partner?Bxxakap6907/06/2024UDIT-CAnswerDate RecordedQ1: How often do you have a drink containing alcohol?Monthly or less07/06/2024Q2: How many drinks containing alcohol do you have on a typical day when you are drinking?1 or Q3: How often do you have six or more drinks on one occasion?Never07/06/2024Overall Financial Resource Strain (CARDIA)AnswerDate RecordedHow hard is it for you to pay for the very basics like food, housing, medical care, and heating?Not hard at all07/06/2024PHQ-2AnswerDate RecordedPatient Health Questionnaire-2 Score0 01/09/2025[facility] - Occupational Stress QuestionnaireAnswerDate RecordedDo you feel stress - tense, restless, nervous, or anxious, or unable to sleep at night because yourmind is troubled all the time - these days?Only a mzvzfj9507/06/2024Exercise Vital SignAnswerDate Recorded On average, how many days per week do you engage in moderate to strenuous exercise (like a brisk walk)?2 days07/06/2024On average, how many minutes do you engage in exercise at this level?30 min07/06/2024Hunger Vital SignAnswerDate RecordedWithin the past 12 months, you worried that your food would run out before you got the money to buymore.Never true07/06/2024Within the past 12 months, the food you bought just didn't last and you didn't have money to get more.Never true07/06/2024PRAPARE - TransportationAnswerDate RecordedIn the past 12 months, has lack of transportation kept you from medical appointments or from getting medications?No07/06/2024In the past 12 months, has lack of transportation kept you from meetings, work, or from getting things needed for daily living?No07/06/2024Housing Stability Vital SignAnswerDate RecordedIn the last 12 months, was there a time when you were not able to pay the mortgage or rent on time?No02/18/2023In the last 12 months, how many places have you lived?1 02/18/2023In the last 12 months, was there a time when you did not have a steady place to sleep or slept in [place] (including now)?No02/18/2023Housing Stability Vital SignAnswerDate RecordedIn the last 12 months, was there a time when you were not able to pay the mortgage or rent on time?No07/06/2024In the past 12 months, how many times have you moved where you were living? At any time in the past 12 months, were you homeless or living in a correction (including now)?No07/06/2024Sex and Gender InformationValueDate RecordedSex Assigned at BirthNot on fileLegal DzbWwsu5608/27/2022 7:35 PM EDTGender Identity Male08/27/2022 7:35 PM EDTSexual OrientationNot on filedocumented as of this encounter Last Filed Vital Signs Vital SignReadingTime TakenCommentsBlood Pressure--Pulse--Temperature-- Respiratory Kgwv0238 1:48 PM EDTOxygen Saturation--Inhaled Oxygen Concentration--Kjwzrg925 kg (225 lb)03/31/2025 1:48 PM HMVXkxfzc695.8 cm (5' 10 )03/31/2025 1:48 PM EDTBody Mass Index32.281 1:48 PM EDTdocumented in this encounter Progress Notes * Jonathan Cowan DPM - 03/31/2025 1:40 PM EDT Patient: Brent Car : 1950 PCP: Gerald Low MD SUBJECTIVE This is a 75 y.o. male that presents today for a chief complaint of left ankle pain for the past 6 years. Patient denies any trauma to the area but states he has swelling around his ankle and has noticed pain to the outer aspect of the left ankle as well as sometimes on the inner aspect of the leftankle. He has taken anti-inflammatories with minimal improvement and states it is dull and achy andpainful with ambulation. Allergies: Allergies[1] Past Medical History: Medical History[2] Medications: Current Medications[3] Social History: Social History Socioeconomic History Marital status: Spouse [...] use: Never Sexual activity: Defer Partners: Female Other Topics Concern Not on file Social History Narrative Not on file Social Drivers of Health Financial Resource Strain: Low Risk (03/21/2025) Received from [facility] Overall Financial Resource Strain (CARDIA) Difficulty of Paying Living Expenses: Not hard at all Food Insecurity: No Food Insecurity (03/21/2025) Received from [facility] Hunger Vital Sign Within the past 12 months, you worried that your food would run out before you got the money to buymore.: Never true Ran Out of Food in the Last Year: Not on file Transportation Needs: No Transportation Needs (03/21/2025) Received from [facility] Transportation In the past 12 months, has lack of transportation kept you from medical appointments or from getting medications?: No Lack of Transportation (Non-Medical): Not on file Physical Activity: Insufficiently Active (07/06/2024) Exercise Vital Sign Days of Exercise per Week: 2 days Minutes of Exercise per Session: 30 min Stress: No Stress Concern Present (07/06/2024) [place] of Occupational Health - Occupational Stress Questionnaire Feeling of Stress : Only a little Social Connections: Unknown (07/06/2024) Social Connection and Isolation Panel Frequency of Communication with Friends and Family: More than three times a week Frequency of Social Gatherings with Friends and Family: Once a week Attends Sikhism Services: Patient declined Active Member of Clubs or Organizations: No Attends Club or Organization Meetings: Never Marital Status: Intimate Partner Violence: Unknown (03/21/2025) Received from [facility] Humiliation, Afraid, Rape, and Kick questionnaire Within the last year, have you been afraid of your partner or ex-partner?: No Emotionally Abused: Not on file Physically Abused: Not on file Sexually Abused: Not on file Housing Stability: Low Risk (03/21/2025) Received from [facility] Stability Vital Sign In the last 12 months, was there a time when you were not able to pay the mortgage or rent on time?: No In the past 12 months, how many times have you moved where you were living?: 0 At any time in the past 12 months, were you homeless or living in a correction (including now)?: No ROS: General: denies fever, chills, fatigue, malaise Gastrointestinal: denies abdominal pain, ulcers, or changes in appetite or bowel habits Musculoskeletal: positive history of generalized osteoarthritis Cardiovascular: denies CP, palpitations, irregular rhythms. Positive history of CHF OBJECTIVE LE EXAM: DERM: Positive hair growth to b/l feet with good skin turgor noted. Negative openings in skin. Edema to left ankle VASC: Palpable pedal pulsed b/l with warm to cool tibia to toes b/l NEURO: Gross sensation intact digits 1-10 and b/l feet ORTHO: +5/5 DF/PF/IN/EV right, +5/5 DF/PF/IN/EV left. 20 degrees inversion and 10 degrees eversion STJ b/l. Ankle ROM less than 10 degrees b/l. Positive pain on palpation to lateral left ankle gutter and capsule XRAY: XR ankle 3+ views left Imaging Result: Notable talar tilt with degenerative changes to the tibiotalar joint with sclerosis US: DIAGNOSTIC US REPORT: Verbal order for ultrasound today The left ankle was scanned today with a 12 MHz linear probe in the transverse/sagital planes. Images were obtained. FINDINGS: US examination in the longitudinal and transverse images of the ankle joint demonstrates a small amount of hypo-echoic density and signal of the ankle joint indicative of synovitis and capsulitis. IMPRESSION: US findings of capsulitis/synovitis of ankle. ASSESSMENT 1. DJD (degenerative joint disease), ankle and foot, left 2. Other specified disorders of synovium, left ankle and foot PLAN Reviewed xrays today with patient Patient to continue with oral anti - inflammatories as needed for pain and recommended OTC medications such as tylenol or Ibuprofen Brace in the future was discussed Pt was given steroid injection to the left ankle joint capsule and synovium under US guidance with visualization of injected fluid into area of concern per imaging. Injection consisted of a 2:1 mixture of xylocaine 2%plain and kenalog 10 for a total of 3ccs. Informed pt of risks and benefits of procedure including infection,damage or rupture to soft tissuestructures and steroid flare. Pt understood and consented. This is the patients 1st injection Jonathan Cowan DPM [1] Allergies Allergen Reactions Azithromycin Unknown Ciprofloxacin Other Reaction(s): ?change in mental status Erythromycin GI intolerance and Other Lisinopril Cough [2] Past Medical History: Diagnosis Date Actinic keratosis 2 left hand Allergic 1963 Allergic rhinitis 1962 Anemia Arthritis 1999 Campylobacter diarrhea Cancer (HCC) 2020 Decreased testosterone level Diabetes mellitus, type II (HCC) Diverticulosis Dyspnea on effort Epididymitis Family history of malignant neoplasm of breast older sister Fatty liver GERD (gastroesophageal reflux disease) Hearing loss Heart failure (HCC) history of depression and panic disorder History of gout history of gout/hyperuricemia History of peptic ulcer disease History of prostatitis Hypertension Hyperuricemia Gout/hyperuricemia Left ventricular hypertrophy Lumpy breasts Mitral valve prolapse Mixed hyperlipidemia Multinodular goiter Nasal polyposis Noncompliance with therapeutic regimen Obesity Peptic ulceration 1963 Pneumonia Seborrheic keratosis ankle TIA (transient ischemic attack) Vertigo Visual impairment 1959 [3] Current Outpatient Medications: allopurinol (Zyloprim) 300 MG tablet, Take 1 tablet (300 mg) by mouth Daily, Disp: 90 tablet, Rfl: 1 aspirin 81 MG EC tablet, Take 81 mg by mouth Daily, Disp: , Rfl: bisoprolol (Zebeta) 5 MG tablet, Take 5 mg by mouth Daily, Disp: , Rfl: empagliflozin (Jardiance) 25 MG, Take 1 tablet (25 mg) by mouth Daily, Disp: 90 tablet, Rfl: 1 fluticasone (Flonase) 50 MCG/ACT nasal spray, Administer 2 sprays into each nostril in the morning.(Patient taking differently: Administer 2 sprays into each nostril Daily as needed), Disp: , Rfl: furosemide (Lasix) 20 MG tablet, Take 1 tablet (20 mg) by mouth Daily, Disp: 90 tablet, Rfl: 1 glimepiride (Amaryl) 4 MG tablet, Take 1 tablet (4 mg) by mouth in the morning. Take before meals.,Disp: 90 tablet, Rfl: 1 omeprazole (PriLOSEC) [address] capsule, TAKE 1 CAPSULE IN THE MORNING BEFORE A MEAL (DO NOT CRUSH OR CHEW), Disp: 90 capsule, Rfl: 3 rosuvastatin (Crestor) 20 MG tablet, Take 1 tablet (20 mg) by mouth Daily, Disp: , Rfl: sacubitril-valsartan (Entresto) 24-26 MG tablet, Take 1 tablet by mouth in the morning and 1 tabletbefore bedtime., Disp: , Rfl: spironolactone (Aldactone) 25 MG tablet, Take by mouth Daily, Disp: , Rfl: tamsulosin (Flomax) 0.4 MG 24 hr capsule, Take 0.4 mg by mouth Daily, Disp: , Rfl: documented in this encounter Plan of Treatment DateTypeDepartmentCare Team (Latest Contact Info)Bxflsyvnpaj82/31/2025 2:00 PM EDTOffice Visit [facility] [address] [place] [address] Jonathan Cowan DPM [address] [address] documented as of this encounter Procedures Procedure NamePriorityDate/TimeAssociated DiagnosisCommentsXR ANKLE 3+ VIEWS UPGBVsiaaas01/17/2025 1:49 PM EDT DJD (degenerative joint disease), ankle and foot, left documented in this encounter Results * XR ankle 3+ views left (03/31/2025 1:49 PM EDT)Anatomical RegionLaterality ModalityLower Extremities, AnkleLeftRadiographic ImagingSpecimen (Source) Anatomical Location / LateralityCollection Method / VolumeCollection Time Received Time Narrative 03/31/2025 1:50 PM EDT Imaging Result: Notable talar tilt with degenerative changes to the tibiotalar joint with sclerosis Authorizing ProviderResult TypeResult StatusNicholozzy Cowan DPMIMG XR PROCEDURESFinal Result documented in this encounter Visit Diagnoses Diagnosis DJD (degenerative joint disease), ankle and foot, left- Primary Other specified disorders of synovium, left ankle and foot documented in this encounter Additional Health Concerns AssessmentNoted TimePHQ-9 Depression Total Score: 1307 8:34 AM EDT documented as of this encounter Care Teams Team MemberRelationshipSpecialtyStart DateEnd Date Gerald Low MD [address] [place] [address] PCP - GeneralFamily Lbargomm42/30/24 Peggy Gatica NP Nurse PractitionerFamily Mupwkypg39/29/24documented as of this encounter
--- OUTSIDE RECORDS SUMMARY | 2025-03-31 13:50 | XMS_ITS | Encounter Summary ---
Author Organization [facility] Address [address] [place] [address] Care Team Providers Care Meat Stringer Name Role Phone Peggy Gatica PROTOCOL MANAGER Unavailable [phone] Gerald Low MD Primary Care Provider [phone] Encounter Details DateTypeDepartmentCare Team (Latest Contact Info)Vjlmrwzggcy21/17/2025 1:50 PM EDTAncillary Procedure [facility] [address] [place] [id number] Social History Tobacco UseTypesPacks/DayYears UsedDateSmoking Tobacco: [id number] - 1984Passive Smoke Exposure: NeverSmokeless Tobacco: NeverAlcohol UseStandard Drinks/WeekCommentsYes0 (1 standard drink = 0.6 oz pure alcohol)[id number] Health LiteracyAnswerDate RecordedHow often do you need to have someone help you when you read instructions, pamphlets, or other written material from your doctor or pharmacy?Duwqzt5907/06/2024Humiliation, Afraid, Rape, and Kick questionnaireAnswerDate RecordedWithin the [...] week07/06/2024How often do you attend rastafari or presybeterian services?Patient dvxtnhux65/22/2025Do you belong to any clubs or organizations such as rastafari groups, unions, [employer] or athletic roseline ups, or school groups?No07/06/2024How often do you attend meetings of the clubs or organizations you belong to?Never07/06/2024re you , , , , never , or living with a partner?Uoufmjb3807/06/2024 AUDIT-CAnswerDate RecordedQ1: How often do you have [...] hard at all07/06/2024PHQ-2 AnswerDate RecordedPatient Health Questionnaire-2 Toddi367[facility] [place] of Occupational Health - Occupational Stress QuestionnaireAnswerDate RecordedDo you feel stress - tense, restless, nervous, or anxious, or unable to sleep at night because yourmind is troubled all the time - these days?Only a fgodtv1707/06/2024Exercise Vital SignAnswerDate RecordedOn average, how many days [...] were you homeless or living in a fpc (including now)?No07/06/2024Sex and Gender InformationValueDate RecordedSex Assigned at BirthNot on fileLegal CnzCuxy5508/27/2022 7:35 PM EDTGender XslsphsiJgqi34/15/2023 7:35 PM EDTSexual OrientationNot on filedocumented as of this encounter Plan of Treatment DateTypeDepartmentCare Team (Latest Contact Info)Ocgbkxomfgl47/31/2025 2:00 PM EDTOffice Visit [facility] [address] [place] [address] Jonathan Cowan DPM [address] [address] documented as of this encounter Procedures Procedure NamePriorityDate/TimeAssociated DiagnosisCommentsXR ANKLE 3+ VIEWS PTTUBqnqhtg91/17/2025 1:49 PM EDT DJD (degenerative joint disease), [...] DateEnd Date Gerald Low MD [address] [place] [address] PCP - GeneralFamily Yxwcdejw38/30/24 Peggy Gatica NP Nurse PractitionerFamily Vhklcbdz89/29/24documented as of this encounter
--- OUTSIDE RECORDS SUMMARY | 2025-04-05 09:24 | XMS_ITS | Encounter Summary ---
Author Organization [facility] Address [address] [place] [address] Care Team Providers Care Fish And Wildlife Biologist Name Role Phone Peggy Gatica APPLIANCE TECHNICIAN Unavailable [phone] Gerald Low MD Primary Care Provider [phone] Encounter Details DateTypeDepartmentCare Team (Latest Contact Info)Myrieavqgpi86/08/2025Travel Social History Tobacco UseTypesPacks/DayYears UsedDateSmoking Tobacco: [id number] - 1984Passive Smoke Exposure: NeverSmokeless Tobacco: NeverAlcohol UseStandard Drinks/WeekCommentsYes0 (1 standard drink = 0.6 oz pure alcohol)[id number] Health LiteracyAnswerDate RecordedHow often do you need to have someone help you when you read instructions, pamphlets, or other written material from your doctor or pharmacy?Nnzzbu4507/06/2024Humiliation, Afraid, Rape, and Kick questionnaireAnswerDate RecordedWithin the [...] sexual activity by your part ner or ex-partner?No09/06/2023Social Connection and Isolation PanelAnswerDate RecordedIn a typical week, how many times do you talk on the phone with family, friends, or neighbors?More than three times a week07/06/2024How often do you get together with friends or relatives?Once a week07/06/2024How often do you attend sikh or yazidism services?Patient achkwozl98/22/2025Do you belong to any clubs or organizations such as sikh groups, unions, fraternal or athletic roseline ups, or school groups?No07/06/2024How often do you attend meetings of the clubs or organizations you belong to?Never07/06/2024re you , , , , never , or living with a partner?Dnqohdp8307/06/2024 AUDIT-CAnswerDate RecordedQ1: How often do you have [...] hard at all07/06/2024PHQ-2 AnswerDate RecordedPatient Health Questionnaire-2 Pvdfl045Fin[facility] [place] of Occupational Health - Occupational Stress QuestionnaireAnswerDate RecordedDo you feel stress - tense, restless, nervous, or anxious, or unable to sleep at night because yourmind is troubled all the time - these days?Only a cufvwe4807/06/2024Exercise Vital SignAnswerDate RecordedOn average, how many days [...] were you homeless or living in a penitentiary (including now)?No07/06/2024Sex and Gender InformationValueDate RecordedSex Assigned at BirthNot on fileLegal HgzAyhb4108/27/2022 7:35 PM EDTGender BnyphbbnTrnz60/15/2023 7:35 PM EDTSexual OrientationNot on filedocumented as of this encounter Plan of Treatment DateTypeDepartmentCare Team (Latest Contact Info)Ijxawunying71/31/2025 2:00 PM EDTOffice Visit [facility] [address] [place] [address] Jonathan Cowan DPM [address] [address] documented as of this encounter Visit Diagnoses Not on filedocumented in this encounter Additional Health Concerns AssessmentNoted TimePHQ-9 Depression Total Score: 13001/09/2025 8:34 AM EDT documented as of this encounter Care Teams Team MemberRelationshipSpecialtyStart DateEnd Date Gerald Low MD [address] [place] [address] PCP - GeneralFamily Tbwbfheg73/30/24 Peggy Gatica NP Nurse PractitionerFamily Izrqujis13/29/24documented as of this encounter
--- OUTSIDE RECORDS SUMMARY | 2025-04-05 09:25 | XMS_ITS | Clinical Summary ---
Author Organization [facility] Healthcare Address [address] [place] [address] Care Team Providers Care Communications Marketing Intern Name Role Phone Peggy Gatica NP Unavailable [phone] Gerald Low MD Primary Care Provider [phone] Allergies Active AllergyReactionsCriticalityNoted DateCommentsAzithromycinUnknown 03/24/20187209Vsxdslojxllqb00/12/2023 Other Reaction(s): ?change in mental status ErythromycinGI intolerance,Other04/28/20236234XlovhxjkgjOpnpa97/12/2023 Medications MedicationSigDispense QuantityRefillsLast FilledStart DateEnd DateStatus fluticasone (Flonase) 50 MCG/ACT nasal spray Administer 2 sprays into each nostril in the morning.Active tamsulosin (Flomax) 0.4 MG 24 hr capsule Take 0.4 mg by mouth DailyActive furosemide (Lasix) 20 MG tablet Indications:Primary hypertensionTake 1 tablet (20 mg) by mouth Daily 90 tablet 4Active rosuvastatin (Crestor) 20 MG tablet Indications:Mixed hyperlipidemiaTake 1 tablet (20 mg) by mouth Daily04/12/2024 5Active omeprazole (PriLOSEC) [address] capsule Indications:Gastroesophageal reflux disease without esophagitisTAKE 1 CAPSULE IN THE MORNING BEFORE A MEAL (DO NOT CRUSH OR CHEW) 90 capsule 5Active empagliflozin (Jardiance) 25 MG Indications:Stage 3a chronic kidney disease (CMS-HCC),Type 2 diabetes mellitus with stage 3a chronic kidney disease, without long-term current use of insulin ([facility])Take 1 tablet (25 mg) by mouth Daily 90 tablet 5Active glimepiride (Amaryl) 4 MG tablet Indications:Type 2 diabetes mellitus with stage 3a chronic kidney disease, without long-term current use of insulin (HCC)Take 1 tablet (4 mg) by mouth in the morning. Take before meals. 90 tablet 5Active allopurinol (Zyloprim) 300 MG tablet Indications:Gout, unspecified cause, unspecified chronicity, unspecified site Take 1 tablet (300 mg) by mouth Daily 90 tablet 5Active bisoprolol (Zebeta) 5 MG tablet Take 5 mg by mouth Daily5Active aspirin 81 MG EC tablet Take 81 mg by mouth DailyActive spironolactone (Aldactone) 25 MG tablet Take by mouth DailyActive sacubitril-valsartan (Entresto) 24-26 MG tablet Take 1 tablet by mouth in the morning and 1 tablet before bedtime.Active losartan (Cozaar) 100 MG tablet Indications:Primary hypertensionTake 1 tablet (100 mg) by mouth Daily 90 tablet Discontinued(Therapy completed)Hospital, Clinic, or Other Facility Administered MedicationOrdered DoseRouteFrequencyStart DateEnd Date Status bupivacaine PF (Marcaine) 0.5 % injection 2 mL Indications:Left rotator cuff tear arthropathy,Arthritis of left shoulder2 mLIJ Once PRN Qlucvauxs47Ended methylPREDNISolone acetate (DEPO-Medrol) injection 40 mg Indications:Left rotator cuff tear arthropathy,Arthritis of left rtefsxtj18 mgIX Once PRN Goaoybzik26Ended Active Problems ProblemNoted DateDiagnosed DateEncounter for subsequent annual wellness visit (AWV) in Medicare yrzycdw1701/09/2025 Assessment & Plan (01/09/2025 6:20 AM EDT): Reviewed Ht/Wt/BMI Recommend eye exam yearly Recommend dental exams twice a year Balance work/leisure activities Exercises is recommended most days of the week (appropriate as chronic conditions allow) Follow up yearly and prn Left ankle kofoxwbn24/28/8145Flgjyipzwoi05/01/2025 Assessment & Plan (01/09/2025 6:13 AM EDT): Noted at last office visit, was sent to [facility] ER via squad Bisoprolol dose was lowered from 10mg daily to 5mg daily Assessment & Plan (12/13/2024 3:10 PM EDT): No current sxs , at HR that he has, we discussed that despite asymptomatic we will send to dugngnii247 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, report 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 Sent with last office note, for med list etc I have reassessed the pt: HR 34, BP 120/72 Skin is pink, warm, and dry LLQ pain11/28/2024 Assessment & Plan (01/09/2025 6:12 AM EDT): Checked labs and xray at last appt Treated for suspected diverticulitis, sxs resolved Assessment & Plan (12/13/2024 3:07 PM EDT): Checked labs and xray at last appt Treated for suspected diverticulitis, sxs resolved Assessment & Plan (11/28/2024 2:31 PM EDT): Abd xray Labs: cbc, sed rate, chem 14, UA w micro and urine culture Suspect diverticulitis Kcvugkcfebgqsi84/16/2025 Assessment & Plan (12/13/2024 3:08 PM EDT): Treated with atb, sxs resolved Class 1 obesity with serious comorbidity in adult10/10/2024 Assessment & Plan (01/09/2025 6:14 AM EDT): [...] juices, and sugary drinks. Screening for prostate mscicz6010/10/2024History of tobacco abuse05/31/2024 Disxubvrarh45/17/2024Frequent PVCs10/12/2023 Overview (10/12/2023): Last Assessment & Plan: F/U with Dr San Leukemoid fqlikidw69/29/2024 Assessment & Plan (10/12/2023 11:08 AM EDT): WBC of 19 k on labs drawn at [facility] - recheck Left adrenal mass08/11/2023 Assessment & Plan (01/09/2025 6:15 AM EDT): Follows with urology for this Assessment & Plan (01/11/2024 11:29 PM EDT): left adrenal mass, stable. Normal cortisone/metanephrines/aldosterone. 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 Check cortisone, aldosterone, metanephrine to make sure Adenoma is not functioning Abnormal nuclear stress test07/15/2023 Assessment & Plan (07/15/2023 2:42 PM EST): Nuclear stress test 07/08 - perfusion defect in LAD distribution. Asymptomatic. Instructed to start using ASA. Patient scheduled for [facility] on 07/29/23 No prior hx of CAD Stage 3a chronic kidney uxcmbys3107/15/2023 Assessment & Plan (01/09/2025 6:14 AM EDT): [...] on Jardiance. Stop Actose. Abnormal electrocardiogram (ECG) (EKG)07/10/2023 Overview (07/15/2023): Last Assessment & Plan: Frequent PVCs, bigemeny, NSVT Near oxwdsrl0407/10/2023 Overview (07/15/2023): Last Assessment & Plan: Recently admitted to [facility] for near syncope, bradycardia, abnormal stress test with NSVT while on treamill. Frequent PVCS NSVT (nonsustained ventricular tachycardia)07/10/2023 Overview (07/15/2023): Last Assessment & Plan: 4 beat NSVT noted on treadmill stress test- ordered cardiac cath for further ischemia evaluation with recent near syncope, abnormal EKG and stress test, chest pain Assessment & Plan (01/09/2025 6:12 AM EDT): Noted from cardiology notes in the past Assessment & Plan (07/15/2023 2:41 PM EST): Scheduled for [facility] in July. Patient is currently asymptomatic. Instructed to go to ED if he develops any symptoms concerning for active cardiac ischemia On bisoprolol. Instructed to start using ASA. Renal cyst, left06/29/2023 Assessment & Plan (07/15/2023 2:47 PM EST): Increased in size on CT 06/06 - repeat US. Refer to Urology. Has an appointment with Dr Mcfarland in November. Nodule of lower lobe of left lung06/29/2023 Overview (06/29/2023): repeat CT scan in 6 months Assessment & Plan (07/15/2023 2:40 PM EST): Repeat CT chest in 09/05. Former smoker. Reason for CT chest is to ensure nodule is stable. Hx of duodenal cancer that is currently in remission Gout06/29/2023 Overview (06/29/2023): controlled with allopurinol Assessment & Plan (10/10/2024 6:18 AM EDT): Current meds: allopurinol Check labs yearly and prn dose changes or changes in sxs Primary malignant neuroendocrine neoplasm of wsmgoulg85/14/2023 Assessment & Plan (10/10/2024 6:16 AM EDT): Follows with oncology Assessment & Plan (07/15/2023 2:45 PM EST): Limited with no metastasis. S/p resection. In remission. Following Oncology. Yearly EGD next due 06/07. Left renal cyst - increased in size. Has Urology appointment in November -- ordered US kidney. Will tryto get him in sooner. Adrenal mass 2 cm - stable, unchanged. Will address next appointment Pulm nodule - repeat CT chest planned in 09/05. Ufpwge5702/24/2023bsolute dfgoog3602/24/2023llergic qfjlcdxe51/12/2023Balance cmtgvzj1002/24/2023enign prostatic hyperplasia with lower urinary tract symptoms 02/24/2023 Assessment & Plan (10/10/2024 9:23 AM EDT): Currently taking tamsulosin Follows with urology Chronic nkgjicdgi93/12/2023Type 2 diabetes mellitus with kidney complication, without long-term current use of lgdfblc5202/24/2023 Assessment & Plan (01/09/2025 6:14 AM EDT): [...] questions or concerns related to new medications. Ttfuosciooug06/12/2023Diverticulosis of sigmoid colon02/24/2023 Assessment & Plan (11/28/2024 2:31 PM EDT): Augmentin BID for 10 days Check labs and xray Fu in 2 weeks Advised of s/s of need for ER Esophageal gjniaygig93/12/2023astroesophageal reflux tqyilpa4702/24/2023 Assessment & Plan (10/10/2024 6:15 AM EDT): Recommendations: freq small meals, nothing to eat or drink at least 2 hours prior to bed, limit caffeine, alcohol, as well as spicy foods Meds to limit or avoid if possible: NSAIDS Elevate HOB if possible Current med: omeprazole Assessment & Plan (07/15/2023 2:45 PM EST): On omeprazole. C/w same. Fall02/24/2023Left rotator cuff tear qpyrsssqdoh34/12/2023 Assessment & Plan (04/12/2024 10:55 AM EDT): [facility] ortho told him he needed revision. Declined. Was given cortisoioine injection. Would like to have agin. Needs to establish with new orttho;. Referral sent to ortho Obesity (BMI 30-39.9)02/24/2023 Assessment & Plan (04/12/2024 10:55 AM EDT): [...] surgical options for weight loss. 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 On Losartan, Bisoprolol. C/w same. Mixed xkummpwvdxfnpx15/12/2023 Assessment & Plan (01/09/2025 6:19 AM EDT): [...] Check Lipid Panel Continue current regimen. Neuroendocrine ixrphcaub55/16/2021 Assessment & Plan (01/09/2025 6:19 AM EDT): Continue recommended monitoring of this Arthritis Resolved Problems ProblemNoted DateDiagnosed DateResolved DateURTI (acute upper respiratory infection)/06/2024Pneumonia of left lower lobe due to infectious xhembmzv11 Assessment & Plan (10/12/2023 11:06 AM EDT): Left lower lobe infiltrate on CXR, mild resp symptoms including cough. He presented to ED for fever. Will start patient on Doxycycline and treat for bacterial PNA. Encounter to establish care with new dkurwv40 Assessment & Plan (07/15/2023 2:48 PM EST): New Patient, here to establish care. Reviewed medical, surgical and social hx. Reviewed available old records. Reviewed and updated medication list. New Patient for this practice. Was previously established with Dr Barajas but had to [facility]. Accelerated wnzjggaoxiqc94Morbid zbeerks57 Type 2 diabetes mellitus in patient with clqyita72 Encounters DateTypeDepartmentCare MtyvUrjgmychqnj58/17/2025 1:50 PM EDTAncillary Procedure [facility] [address] [place] [address] 03/31/2025 1:40 PM EDTOffice Visit NOMAgapito Li [facility] [address] [place] [address] Jonathan Cowan DPM DJD (degenerative joint disease), ankle and foot, left (Primary Dx); Other specified disorders of synovium, left ankle and foot03/31/2025amb flowsheet [facility] [address] [place] [address] Jonathan Cowan DPM 03/29/2025 9:30 AM EDTOffice Visit [facility] [address] [place] [phone] Fahad Sears PA Acute pain of left shoulder (Primary Dx); Left rotator cuff tear arthropathy; Arthritis of left fitwejoo30/15/2025amb flowsheet [facility] [place] [address] Fahad Sears PA 03/29/20256254Uryxlw21/10/7117Iwpxnd05/08/8273Edhvta37/28/2025 8:40 AM EDTOffice Visit N[facility] [address] [place] [address] Tomeka Rosado NP Encounter for subsequent annual [...] hyperlipidemia ; Primary hypertension ; Left ankle fznuarif30/28/2025Results Follow-Up [facility] [address] [facility] [place] [place] [address] Ruby Miller MA XR ANKLE LT MIN 3V5Clinisync Result Encounter NOMS External Department Unsolicited Tomeka Rosado NP 01/09/2025amboo flowsheet [facility] [address] [place] [address] Tomeka Rosado NP 01/06/2025Travelfrom Last 3 Months Immunizations ImmunizationAdministration DatesNext DueInfluenza, High Dose Seasonal, Preservative Free03/09/2019,04/09/2018,05/18/2017Influenza, High-dose Seasonal, Quadrivalent, Preservative Free03/20/2023,03/27/2022,03/01/2021,02/24/2020 Influenza, seasonal, injectable, preservative free03/13/2016,03/28/2015 Influenza, trivalent, jrojljczla51/22/2024Novel ptftnagyf-M5R2-07, preservative-free02/22/2010Pneumococcal Conjugate PCV 1306,05/21/2018 Pneumococcal Polysaccharide YTQK5208/05/2023,05/12/2006RSV, recombinant, protein subunit RSVpreF, adjuvant reconstitu, 120mcg/0.5mL, PF (Arexvy)05/24/2024TD (adult), 2 Lf tetanus toxoid, preservative free, tsoffrrb71/15/2019Tdap 10/27/2018,03/14/2011Zoster, live05/24/2016,05/15/2016 Family History Medical HistoryRelationNameCommentsCancerBrotherSamMeniere's diseaseBrotherSam multinodular goiterBrotherSamDiabetesFatherSamHearing lossFatherSamHeart disease FatherSamHypertensionFatherSamHeart diseaseMotherReginaHeart failureMotherRegina Breast waajmiDodokkQdhwbbclLqfJofBtrftninYxaqJawbeaOjjeeljmLtwuyplCkqq1VutrqcBvb DeceasedMotherReginaDeceasedSisterSonBobAlivex2 Social History Tobacco UseTypesPacks/DayYears UsedDateSmoking Tobacco: OtuvvwIksgtxsnjc7377975 - 1984Passive Smoke Exposure: NeverSmokeless Tobacco: Never Tobacco Cessation:Counseling Given: Yes Alcohol UseStandard Drinks/WeekCommentsYes0 (1 standard drink = 0.6 oz pure alcohol)KBXJNXPZYBKF7872 Health LiteracyAnswerDate RecordedHow often do you need to have someone help you when you read instructions, pamphlets, or other written material from your doctor or pharmacy?Anflwn7107/06/2024Humiliation, Afraid, Rape, and Kick questionnaireAnswerDate RecordedWithin the [...] relatives?Once a week07/06/2024How often do you attend orthodox or taoist services?Patient viueuwbb94/22/2025Do you belong to any clubs or organizations such as orthodox groups, unions, fraternal or athletic groups, or school groups?No07/06/2024How often do you attend meetings of the clubs or organizations you belong to?Never07/06/2024re you , , , , never , or living with a partner?Npmpqvp3007/06/2024UDIT-CAnswerDate RecordedQ1: How often do you have a [...] hard at all07/06/2024PHQ-2AnswerDate RecordedPatient Health Questionnaire-2 Score0 01/09/2025Fincentral [facility] medical [facility] [place] [facility] Occupational Health - Occupational Stress QuestionnaireAnswerDate RecordedDo you feel stress - tense, restless, nervous, or anxious, or unable to sleep at night because yourmind is troubled all the time - these days?Only a oaptet8607/06/2024Exercise Vital SignAnswerDate Recorded On average, how many [...] steady place to sleep or slept in billingselter (including now)?No02/18/2023Housing Stability Vital SignAnswerDate RecordedIn the last 12 months, was there a time when you were not able to pay the mortgage or rent on time?No07/06/2024In the past 12 months, how many times have you moved where you were living? At any time in the past 12 months, were you homeless or living in a senior living (including now)?No07/06/2024Sex and Gender InformationValueDate RecordedSex Assigned at BirthNot on fileLegal CslRybx6708/27/2022 7:35 PM EDTGender Identity Male08/27/2022 7:35 PM EDTSexual OrientationNot on file Last Filed Vital Signs Vital SignReadingTime TakenCommentsBlood Kjqgkahj862/8007 8:33 AM EDT Xoidu5461 8:33 AM AUOOvajjqhaxeh95.9 ??C (98.5 ??F)01/09/2025 8:33 AM EDTRespiratory Feyk4481 1:48 PM EDTOxygen Eljjjaiadt39%01/09/2025 8:33 AM EDTInhaled Oxygen Concentration--Ivolpt403 kg (225 lb)03/31/2025 1:48 PM EDT Gysugw073.8 cm (5' 10 )03/31/2025 1:48 PM EDTBody Mass Index32.281 1:48 PM EDT Plan of Treatment DateTypeDepartmentCare Team (Latest Contact Info)Ektgvtmewsq14/31/2025 2:00 PM EDTOffice Visit NOMAgapito [facility] [address] [place] [address] Jonathan Cowan DPM [address] [address] Health MaintenanceDue DateLast DoneCommentsInfluenza Vaccine (#1)02/13/2025 04/05/2024, 03/20/2023, 03/27/2022, Additional history existsColonoscopy Yfxoeybjhhid69/16/2021, 07/14/2014Colorectal Cancer ScreeningDiscontinued Pneumococcal Vaccine: 65+ CtoolVgdqjpxik66/12/2023, 11/22/2018, 05/21/2018, Additional history existsCT ColonographyDiscontinuedFIT-DNADiscontinuedFIT DiscontinuedFOBTDiscontinuedSigmoidoscopyDiscontinued Procedures Procedure NamePriorityDate/TimeAssociated DiagnosisCommentsXR ANKLE 3+ VIEWS TWFZZrcswgn91/17/2025 1:49 PM EDT DJD (degenerative joint disease), ankle and foot, left CA ARTHROCENTESIS ASPIR&/INJ MAJOR JT/BURSA W/JMYnsekpu09/15/2025 9:58 AM EDT Left rotator cuff tear arthropathy Arthritis of left shoulder XR ANKLE LT MIN 3V01/09/2025 10:56 AM EDT PYXGCDFVVQIFfmiage02/16/2021 12:00 PM EDT from Last 3 Months or Most Recently Relevant to Health Maintenance Results * XR ankle 3+ views left (03/31/2025 1:49 PM EDT)Anatomical RegionLaterality ModalityLower Extremities, AnkleLeftRadiographic ImagingSpecimen (Source) Anatomical Location / LateralityCollection Method / VolumeCollection Time Received Time Narrative 03/31/2025 1:50 PM EDT Imaging Result: Notable talar tilt with degenerative changes to the tibiotalar joint with sclerosis Authorizing ProviderResult TypeResult StatusJonathan Cowan DPMIMG XR PROCEDURESFinal Result * CA ARTHROCENTESIS ASPIR&/INJ MAJOR JT/BURSA W/US (03/29/2025 9:58 [...] neurovascular intact s/p injection. . ( Codes 90315) Procedure, treatment alternatives, risks and benefits explained, specific risks discussed. Consent was given by the patient. Patient was prepped and draped in the usual sterile fashion. Authorizing ProviderResult TypeResult StatusMaaric Sears PAIN CLINIC/BEDSIDE ORDERABLESFinal Result * XR ANKLE LT MIN 3V (01/09/2025 10:56 AM EDT)Anatomical RegionLaterality ModalityOtherSpecimen (Source)Anatomical Location / LateralityCollection Method / VolumeCollection TimeReceived Time01/09/2025 10:56 AM EDT Narrative 01/09/2025 10:59 AM EDT [facility] ?[address] ? [place] [address] ?XRay Report ? Signed ? Patient: TALIA,BRENT F ?MR#: [id number] ?? : 1950 ?Acct:[id number] ?? Age/Sex: 74 / M ?ADM Date: 07/28/25 ?? Loc: RAD ? Attending Dr: Tomeka Rosado WOOD CARVING MACHINE OPERATOR ? Ordering Physician: Tomeka Rosado NP ?? Date of Service: 01/09/25 ?? Procedure(s): XR ankle LT min 3V ?? Accession Number(s): [id number] ? cc: Tomeka Rosado NP ? [facility] ? [address] ? [place] [address] ? Patient Name: ?? BRENT CAR ? MRN: [facility]:[id number] ? date: 1950 ?Sex: M ?? Assigned Patient Location: RAD ?? Current Patient Location: RAD ?? Accession/Order Number: [id number] ?? Exam Date: 01/09/2025 ??10:50 ?Report Date: 01/09/2025 ??10:56 ? At the request of: ?? TOMEKA ROSADO ??WOOD CARVING MACHINE OPERATOR ? Procedure: ??XR ankle LT min 3V ? LEFT ANKLE - 3 views ? CLINICAL DATA: Chronic left ankle pain and swelling laterally. ??No specific ?? injury. ? COMPARISON: 08/23/2024 ? AP, lateral and oblique views ??were obtained. ?? There is osteopenia. ??There is ?? no acute fracture or dislocation. ??Similar minor asymmetry is seen at the ?? medial ankle mortise. ??Spurring is present at the malleoli and dorsum of the ?? talus. ??There are also calcaneal spurs, larger at the plantar surface. ??The ?? talar dome is intact. ??Lateral soft tissue swelling is seen. ? XR/XR ankle LT min 3V ?? IMPRESSION: ? NO ACUTE BONY FINDINGS. ? Impression dictated by: Kisha Dudley M.D. ??01/09/2025 10:56 AM ? Dictation Location: RADIO-PC-02 ? Electronically authenticated by: [id number] ??Y ?? Date: 01/09/2025 ??10:56 ? Dictated By: ?Kisha Dudley M.D. ? Signed By: ?01/09/25 1059 ? DD/ 1056 ? TD/TT: ? Golf Caddy: Procedure Note Radiology, Radiologist, MD - 01/09/[address] [address] XRay Report Signed Patient: BRENT CAR FMR#: [id number] : 1950cct:[id number] Age/Sex: 74 / MADM Date: 01/09/25 Loc: [facility] Attending Dr: Tomeka Rosado NP Ordering Physician: Tomeka Rosado NP Date of Service: 01/09/25 Procedure(s): XR ankle LT min 3V Accession Number(s): [id number] cc: Tomeka Rosado NP The [address] [address] Patient Name: BRENT CAR MRN: [facility]:[id number] date: 1950 Sex: M Assigned Patient Location: [facility] Current Patient Location: [facility] Accession/Order Number: [id number] Exam Date: 01/09/2025 10:50 Report Date: 01/09/2025 [...] Dudley M.D. 01/09/2025 10:56 AM Dictation Location: [place] [address] Electronically authenticated by: [id number] Y Date: 0:56 Dictated By: Kisha Dudley M.D. Signed By:01/09/25 1059 DD/ 1056 TD/TT: Golf Caddy: Authorizing ProviderResult TypeResult StatusLisa Alonzo NPCLINISYNC IMAGING Final Result * Colonoscopy (11/28/2020 12:00 PM EDT)Anatomical RegionLateralityModality EndoscopySpecimen (Source)Anatomical Location / LateralityCollection Method / VolumeCollection TimeReceived Time11/28/2020 12:00 PM EDT Narrative 11/28/2020 12:00 PM EDT PERFORMED AT [facility] LOCATION:[id number] See Scanned Results Procedure Note CONVERSION, GENERIC - 10/29/2022 PERFORMED AT [facility] LOCATION:[id number] See Scanned Results Authorizing ProviderResult TypeResult StatusRenee G Karl DOENDOSCOPY PROCEDURE ORDERABLESFinal Result from Last 3 Months or Most Recently Relevant to Health Maintenance Insurance Advance Directives NameRelationshipHealthcare Agent RelationshipCommunicationTina [facility] Hospitaluse Health Care Agent* * * [email or web address] Care Teams Team MemberRelationshipSpecialtyStart DateEnd Date Gerald Low MD [address] [place] [address] PCP - GeneralFamily Gjvhahoh84/30/24 Peggy Gatica NP Nurse PractitionerFamily Vfttxyvy76/29/24
--- OUTSIDE RECORDS SUMMARY | 2025-04-05 09:25 | XMS_ITS | Encounter Summary ---
Author Organization [facility] Address [address] [place] [address] Care Team Providers Care Scrap Bunch Maker Name Role Phone Peggy Gatica ASSEMBLER ERECTOR Unavailable [phone] Gerald Low MD Primary Care Provider [phone] Encounter Details DateTypeDepartmentCare Team (Latest Contact Info)Rblnbitjmjl37/15/2025Travel Social History Tobacco UseTypesPacks/DayYears UsedDateSmoking Tobacco: PrpdikIgyvdyynhi0268313 - 1983Passive Smoke Exposure: NeverSmokeless Tobacco: NeverAlcohol UseStandard Drinks/WeekCommentsYes0 (1 standard drink = 0.6 oz pure alcohol)[id number] Health LiteracyAnswerDate RecordedHow often do you need to have someone help you when you read instructions, pamphlets, or other written material from your doctor or pharmacy?Hnbgty3407/06/2024Humiliation, Afraid, Rape, and Kick questionnaireAnswerDate RecordedWithin the [...] relatives?Once a week07/06/2024How often do you attend mosque or shinto services?Patient szytxctp55/22/2025Do you belong to any clubs or organizations such as mosque groups, unions, fraternal or athletic roseline ups, or school groups?No07/06/2024How often do you attend meetings of the clubs or organizations you belong to?Never07/06/2024re you , , , , never , or living with a partner?Pijcrac4507/06/2024 AUDIT-CAnswerDate RecordedQ1: How often do you have [...] hard at all07/06/2024PHQ-2 AnswerDate RecordedPatient Health Questionnaire-2 Lvbxd942[facility] [place] of Occup[facility] - Occupational Stress QuestionnaireAnswerDate RecordedDo you feel stress - tense, restless, nervous, or anxious, or unable to sleep at night because yourmind is troubled all the time - these days?Only a lgtjja8507/06/2024Exercise Vital SignAnswerDate RecordedOn average, how many days [...] homeless or living in a residential (including now)?No07/06/2024Sex and Gender InformationValueDate RecordedSex Assigned at BirthNot on fileLegal SuyRosv8808/27/2022 7:35 PM EDTGender PyxdrvjdWpku52/15/2023 7:35 PM EDTSexual OrientationNot on filedocumented as of this encounter Plan of Treatment DateTypeDepartmentCare Team (Latest Contact Info)Tzfvllshajq84/31/2025 2:00 PM EDTOffice Visit [facility] [address] [place] [phone] Jonathan Cowan DPM [address] [address] documented as of this encounter Visit Diagnoses Not on filedocumented in this encounter Additional Health Concerns AssessmentNoted TimePHQ-9 Depression Total Score: 13001/09/2025 8:34 AM EDT documented as of this encounter Care Teams Team MemberRelationshipSpecialtyStart DateEnd Date Gerald Low MD [address] [place] [address] PCP - GeneralFamily Uuqndisq29/30/24 Peggy Gatica NP Nurse PractitionerFamily Hpcvlpyr89/29/24documented as of this encounter
--- OUTSIDE RECORDS SUMMARY | 2025-04-05 09:25 | XMS_ITS ---
Author Organization [facility] Address [address] [place] [address] Care Team Providers Care Vaccine Key Customer Leader Name Role Phone Tomeka Rosado MD Primary Care Provider [phone] Active Problems ProblemNoted DateDiagnosed DateElevated ybsncjjh07/07/2025 Assessment & Plan (03/21/2025 3:13 AM EDT): -Troponin 85->112->43 -Concern for ACS -Will initiate IV heparin infusion -Patient was given Plavix as well as therapeutic Lovenox at outside hospital -N.p.o. for possible cardiac cath -Most recent cardiac cath completed on 07/27/2023 showing mild CAD -Cardiology consult Atrial tachycardia, cyhcekmadw26/07/2025 Assessment & Plan (03/21/2025 3:13 AM EDT): - Continue beta-janet Adrenal adenoma, left03/21/2025 Assessment & Plan (03/21/2025 3:13 AM EDT): -Continue outpatient follow-up with urology Fluid jlosnsiz83/07/2025 Assessment & Plan (03/21/2025 3:13 AM EDT): - BNP elevated at 2610 at outside hospital -He was given 40 mg of IV Lasix with improvement in shortness of breath -Echocardiogram is pending -Strict intake and output Left ankle udbfyaxt48/28/9191Hgepyekmgff32/01/2025LLQ pain11/28/2024rthritis 05/31/2024History of tobacco abuse05/31/20240010Fzrmzxrvicb93/17/2024URTI (acute upper respiratory infection)11/16/2023Leukemoid glkoaqqw25 Overview (10/27/2023): Last Assessment & Plan: WBC of 19 k on labs drawn at [facility] - recheck Pneumonia of left lower lobe due to infectious lauynmak85 Overview (10/27/2023): Last Assessment & Plan: Left lower lobe infiltrate on CXR, mild resp symptoms including cough. He presented to ED for fever. Will start patient on Doxycycline and treat for bacterial PNA. Left adrenal mass Overview (08/18/2023): Last Assessment & Plan: 1.4 x 1.5 cm left adrenal mass, stable. Check cortisone, aldosterone, metanephrine to make sure Adenoma is not functioning Assessment & Plan (08/18/2023 11:09 AM EST): D/W that he may benefit from seeing a wool hat hydraulicker for DM, adrenal mass Abnormal nuclear stress test Overview (08/18/2023): Last Assessment & Plan: Nuclear stress test 07/08 - perfusion defect in LAD distribution. Asymptomatic. Instructed to start using ASA. Patient scheduled for [facility] on 07/29/23 No prior hx of CAD Encounter to establish care with new mdqede43 Overview (08/18/2023): Last Assessment & Plan: New Patient, here to establish care. Reviewed medical, surgical and social hx. Reviewed available old records. Reviewed and updated medication list. New Patient for this practice. Was previously established with Dr Barajas [facility] Near yrwbmfa0307/10/2023 Assessment & Plan (08/18/2023 11:07 AM EST): Currently stable, no further episode noted Assessment & Plan (07/10/2023 5:18 PM EST): Recently admitted to [facility] for near syncope, bradycardia, abnormal stress test with NSVT while on treamill. Frequent PVCS NSVT (nonsustained ventricular tachycardia)07/10/2023 Assessment & Plan (08/18/2023 11:06 AM EST): Finish event monitor and f/U with EP Dr San Assessment & Plan (07/10/2023 5:19 PM EST): 4 beat NSVT noted on treadmill stress test- ordered cardiac cath for further ischemia evaluation with recent near syncope, abnormal EKG and stress test, chest pain Abnormal electrocardiogram (ECG) (EKG)07/10/2023 Assessment & Plan (07/10/2023 5:20 PM EST): Frequent PVCs, bigemeny, NSVT Gout Overview (08/18/2023): controlled with allopurinol Nodule of lower lobe of left lung Overview (08/18/2023): repeat CT scan in 6 months Last Assessment & Plan: Repeat CT chest in 09/05. Former smoker. Reason for CT chest is to ensure nodule is stable. Hx of duodenal cancer that is currently in remission Renal cyst, left Overview (08/18/2023): Last Assessment & Plan: Increased in size on CT 06/06 - repeat US. Refer to Urology. Has an appointment with Dr Mcfarland in November. Primary malignant neuroendocrine neoplasm of bayzqhhl26/10/2023 Overview (08/18/2023): Last Assessment & Plan: Limited [...] repeat CT chest planned in 09/05. Accelerated /12/202303/llergic gexuimmc08/12/2023 08/18/20237158Aghrfv58alance vadmped89enign prostatic hyperplasia with lower urinary tract nvgsniap42 Chronic qunznxgul83iverticulosis of sigmoid colon02/24/2023 08/18/2023Esophageal cvhaqzomj49Fall Txtemwbcfagd67Left rotator cuff tear znvwnvzubqi52/12/2023 08/18/2023Obesity (BMI 30-39.9)Other chronic pain02/24/2023 08/18/2023ain in right kneeityriasis rosea02/24/2023 08/18/2023Slow transit ovlvcxxytrya50Tubular adenoma of colon Type 2 diabetes mellitus with kidney complication, without long-term current use of iulmeuu3002/24/2023iabetic polyneuropathy associated with type 2 diabetes qhppmezj68/10/2023Mixed pdbydlsjrtxlft34/12/2023 08/18/2023 Assessment & Plan (03/21/2025 3:13 AM EDT): - Continue rosuvastatin Assessment & Plan (08/18/2023 11:07 AM EST): Continue crestor 20 mg daily Morbid /rimary ysnmhivmrthp14/12/202303/10/2023 Overview (08/18/2023): Last Assessment & Plan: Too tightly controlled with periods of orthostasis. Tolerating Anti hypertensive w/o adverse effects. Denies lightheadedness, dizziness, syncope, presyncope. On Losartan, Bisoprolol. Discontinue Norvasc. Patient encouraged to continue with home BP monitoring and call office if he experiences orthostatic symptoms or persistently elevated BP. Assessment & Plan (03/21/2025 3:13 AM EDT): - Continue losartan Assessment & Plan (08/18/2023 11:04 AM EST): Hypertension is controlled today with outliers noted on B/P Log- In light of bradycardia with PVCs/bigemeny, fatigue will stop bisprolol and start hydralazine for HTN management. D/W pt goal b/p is < 130/80 and to call office for concerns and may need to adjustdose in future. Continue all other meds Type 2 diabetes mellitus without complication, without long-term current use of yrasyoq66/10/2023 Assessment & Plan (03/21/2025 3:13 AM EDT): - ISS, ACHS Neuroendocrine lbcgbhibi53/10/2023 Assessment & Plan (03/21/2025 3:13 AM EDT): - Stable continue monitoring CKD stage 3a, GFR 45-59 ml/min Assessment & Plan (03/21/2025 3:13 AM EDT): - Stable, at baseline Bradycardia by electrocardiogram Assessment & Plan (08/18/2023 11:09 AM EST): Stop bisprolol- no beta blockers at this time Frequent PVCs Assessment & Plan (08/18/2023 11:07 AM EST): F/U with Dr San Current Treatment and Therapy Plans No current plan information found. Past Treatment and Therapy Plans No past plan information found. Lifetime Dose Tracking * ChemicalLifetime DoseAutomatic EntryManual EntryFluoro Time8 minutes0 minutes8 minutesAir Qmvlv199 mGy0 kPu197 mGy
--- OUTSIDE RECORDS SUMMARY | 2025-04-05 09:25 | XMS_ITS | Encounter Summary ---
Author Organization [facility] Address [address] [place] [address] Care Team Providers Care Marine Structural Designer Name Role Phone Peggy Gatica COMMERCIAL PROJECT MANAGER Unavailable [phone] Gerald Low MD Primary Care Provider [phone] Encounter Details DateTypeDepartmentCare Team (Latest Contact Info)Jhpujteyacg82/15/2025Bamboo flowsheet [facility] [address] [place] [address] Fahad Sears PA [address] [place] [address] Social History Tobacco UseTypesPacks/DayYears UsedDateSmoking Tobacco: PgcytoXmgypqpqnx3295455 - 1983Passive Smoke Exposure: NeverSmokeless Tobacco: NeverAlcohol UseStandard Drinks/WeekCommentsYes0 (1 standard drink = 0.6 oz pure alcohol)[id number] Health LiteracyAnswerDate RecordedHow often do you need to have someone help you when you read instructions, pamphlets, or other written material from your doctor or pharmacy?Rjmodt3607/06/2024Humiliation, Afraid, Rape, and Kick questionnaireAnswerDate RecordedWithin the [...] relatives?Once a week07/06/2024How often do you attend pentecostal or religion services?Patient kssqevzi55/22/2025Do you belong to any clubs or organizations such as pentecostal groups, unions, Sumoing or athletic roseline ups, or school groups?No07/06/2024How often do you attend meetings of the clubs or organizations you belong to?Never07/06/2024re you , , , , never , or living with a partner?Rcvlkby7907/06/2024 AUDIT-CAnswerDate RecordedQ1: How often do you have [...] hard at all07/06/2024PHQ-2 AnswerDate RecordedPatient Health Questionnaire-2 Dmatv322Finmountain point medical center [place] of Occupational Health - Occupational Stress QuestionnaireAnswerDate RecordedDo you feel stress - tense, restless, nervous, or anxious, or unable to sleep at night because yourmind is troubled all the time - these days?Only a mfmmzl8707/06/2024Exercise Vital SignAnswerDate RecordedOn average, how many days [...] steady place to sleep or slept in [facility] (including now)?No02/18/2023Housing Stability Vital SignAnswerDate RecordedIn the last 12 months, was there a time when you were not able to pay the mortgage or rent on time?No07/06/2024In the past 12 months, how many times have you moved where you were living?t any time in the past 12 months, were you homeless or living in a nursing home (including now)?No07/06/2024Sex and Gender InformationValueDate RecordedSex Assigned at BirthNot on fileLegal YhlEyyw1808/27/2022 7:35 PM EDTGender HgqbnbldBygh98/15/2023 7:35 PM EDTSexual OrientationNot on filedocumented as of this encounter Plan of Treatment DateTypeDepartmentCare Team (Latest Contact Info)Beikdfwkbbg56/31/2025 2:00 PM EDTOffice Visit [facility] [address] [place] [phone] Jonathan Cowan DPM [address] [address] documented as of this encounter Visit Diagnoses Not on filedocumented in this encounter Additional Health Concerns AssessmentNoted TimePHQ-9 Depression Total Score: 8:34 AM EDT documented as of this encounter Care Teams Team MemberRelationshipSpecialtyStart DateEnd Date Gerald Low MD [address] [place] [address] PCP - GeneralFamily Vetjjchs13/30/24 Peggy Gatica NP Nurse PractitionerFamily Otcxjasi75/29/24documented as of this encounter
--- OUTSIDE RECORDS SUMMARY | 2025-04-05 09:25 | XMS_ITS | Clinical Summary ---
Author Organization [facility] Address [address], [address] [place] [address] Care Team Providers Care Feeder Loader Name Role Phone Shaikh MARY Ayala Primary Care Provider [phone] Allergies Active AllergyReactionsCriticalityNoted DateCommentsCiprofloxacinOther (See Comments)11/24/2022 Other Reaction(s): ?change in mental status TIA ErythromycinOther (See Comments)04/28/20233529ZqktnonppvXkftz83/10/2022 Medications MedicationSigDispense QuantityRefillsLast FilledStart DateEnd DateStatus allopurinol (ZYLOPRIM) 300 MG tablet Take 1 tablet by mouth daily09/17/2020ctive empagliflozin (JARDIANCE) 25 MG tablet Take 1 tablet by mouth daily07/30/2023ctive fluticasone (FLONASE) 50 MCG/ACT nasal spray 2 sprays daily09/17/2020ctive furosemide (LASIX) 20 MG tablet Take 1 tablet by mouth daily10/07/2020ctive glimepiride (AMARYL) 4 MG tablet Take 1 tablet by mouth every morning (before breakfast)10/07/2020ctive FREESTYLE LITE strip USE DIRECTED ONCE TEST06/22/2023ctive losartan (COZAAR) 100 MG tablet Take 1 tablet by mouth daily09/17/2020ctive rosuvastatin (CRESTOR) 10 MG tablet Take 2 tablets by mouth daily09/17/2020ctive bisoprolol (ZEBETA) 5 MG tablet Take 1 tablet by mouth in the morning and at bedtimeActive tamsulosin (FLOMAX) 0.4 MG capsule TAKE 1 CAPSULE DAILY 90 capsule 5Active amLODIPine (NORVASC) 10 MG tablet Take 0.5 tablets by mouth as neededActive omeprazole (PRILOSEC) 40 MG delayed release capsule Take 1 capsule by mouth every morning (before breakfast)4Active Social History Tobacco UseTypesPacks/DayYears UsedDateSmoking Tobacco: NeverSmokeless Tobacco: Never Tobacco Cessation:Counseling Given: Not Answered Alcohol UseStandard Drinks/WeekCommentsNot Currently0 (1 standard drink = 0.6 oz pure alcohol)Sex and Gender InformationValueDate RecordedSex Assigned at Not on fileLegal RgwOuuu1807/25/2012 2:44 PM ESTGender IdentityNot on fileSexual OrientationNot on file Last Filed Vital Signs Vital SignReadingTime TakenCommentsBlood Vyaqsblv393/6807 10:21 AM EDT Cczqd301512/20/2024 10:21 AM EDTTemperature--Respiratory Rate--Oxygen Saturation 94%12/20/2024 10:21 AM EDTInhaled Oxygen Concentration--Ozzpjz565.4 kg (228 lb) 12/20/2024 10:21 AM YYKUaegjn727.8 cm (5' 10 )09/07/2023 10:09 AM EDTBody Mass Index32.71009/07/2023 10:09 AM EDT Plan of Treatment DateTypeDepartmentCare Team (Latest Contact Info)Dgpnjrdrbpx32/08/2026 8:30 AM EDTAppointment [place] [phone] 12/26/2025 9:30 AM EDTOffice Visit [facility] on [address] [address] Belen Camargo W, ELEVATOR DISPATCHER - CONVEYOR WORKER [address] [place] [address] yearly with [facility] MaintenanceDue DateLast DoneCommentsDepression Screen 1961Hepatitis C arqbet4903/23/1967Shingles vaccine (2 of 3)07/19/2016 05/24/2016, 05/15/2016Annual Wellness Visit (Medicare)07/31/2023Flu vaccine (#1) , 03/20/2023, 03/27/2022, Additional history existsCOVID-19 Vaccine ( - season), 10/15/2021, 03/25/2021, Additional history existsDTaP/Tdap/Td vaccine (3 - Td or Tdap)10/27/2028 10/27/2018, 03/14/2011Pneumococcal 50+ years AcsestwQnzjhgptm13/12/2023, 11/22/2018, 05/21/2018, Additional history existsRespiratory Syncytial Virus (RSV) or age 60 yrs+Elvogmvng66/10/2024GFR test (Diabetes, CKD 3-4, OR last GFR 15-59)Brlnigvlhdjv85/26/2025, 11/30/2023Hepatitis A vaccineAged OutNo longer eligible based on patient's age to complete this topicHepatitis B vaccine Aged OutNo longer eligible based on patient's age to complete this topicHib vaccineAged OutNo longer eligible based on patient's age to complete this topic Meningococcal (ACWY) vaccineAged OutNo longer eligible based on patient's age to complete this topicMeningococcal B vaccineAged OutNo longer eligible based on patient's age to complete this topicPolio vaccineAged OutNo longer eligible based on patient's age to complete this topic Procedures Procedure NamePriorityDate/TimeAssociated DiagnosisCommentsBUN & CREATININE Vxikcsp9512/08/2024 7:50 AM EDT Bilateral renal cysts Adrenal adenoma, left from Last 3 Months or Most Recently Relevant to Health Maintenance Results * (ABNORMAL) BUN & Creatinine (12/08/2024 7:50 AM EDT)ComponentValueRef Range Test MethodAnalysis TimePerformed AtPathologist SvwplnxomBEX12(H)9 - 20 mg/dL 12/08/2024 7:50 AM EDTWMAGRUDER HOSPITAL LABCreatinine1.070.66 - 1.25 mg/dL 12/08/2024 7:50 AM EDTTRINITY HEALTH [facility] EAST [facility]US LABEst, Glom Filt Rate72>60 mL/min/1.54v17412/08/2024 7:50 AM EDTWMAGRUDER HOSPITAL LABComment: GFR calculated using CKD-EPI (2020) formula. Stage 1 Kidney damage (e.g., protein in the urine) with normal GFR >=90 Stage 2 Kidney damage with mild decrease in GFR 60-89 Stage 3a Moderate decrease in GFR 45-59 Stage 3b Moderate decrease in GFR 30-44 Stage 4 Severe reduction in GFR 15-29 Stage 5 Kidney failure <15 Specimen (Source)Anatomical Location / LateralityCollection Method / Volume Collection TimeReceived TimeBlood Rzaujq1212/08/2024 7:50 AM EDT12/08/2024 10:38 AM EDT Narrative Authorizing ProviderResult TypeResult StatusKyliang BARNESMARTINS FERRY HOSPITALEMISTRY ORDERABLESFinal ResultPerforming OrganizationAddressCity/State/ZIP CodePhone Number [place] [phone] from Last 3 Months or Most Recently Relevant to Health Maintenance Insurance Care Teams Team MemberRelationshipSpecialtyStart DateEnd Date Shaikh Ayala MD PCP - General07/31/23
--- OUTSIDE RECORDS SUMMARY | 2025-04-05 09:25 | XMS_ITS | Encounter Summary ---
Author Organization [facility] Address [address] [place] [address] Care Team Providers Care Field Installer Name Role Phone Peggy Gatica TALENT DIRECTOR Unavailable [phone] Gerald Low MD Primary Care Provider [phone] Encounter Details DateTypeDepartmentCare Team (Latest Contact Info)Uhuovtjxycb05/10/2025Travel Social History Tobacco UseTypesPacks/DayYears UsedDateSmoking Tobacco: FgslwaPyeobgssxv9410477 - 1983Passive Smoke Exposure: NeverSmokeless Tobacco: NeverAlcohol UseStandard Drinks/WeekCommentsYes0 (1 standard drink = 0.6 oz pure alcohol)[id number] Health LiteracyAnswerDate RecordedHow often do you need to have someone help you when you read instructions, pamphlets, or other written material from your doctor or pharmacy?Xlvmzf6307/06/2024Humiliation, Afraid, Rape, and Kick questionnaireAnswerDate RecordedWithin the [...] relatives?Once a week07/06/2024How often do you attend sikhism or mosque services?Patient vinjcdyq74/22/2025Do you belong to any clubs or organizations such as sikhism groups, unions, fraternal or athletic roseline ups, or school groups?No07/06/2024How often do you attend meetings of the clubs or organizations you belong to?Never07/06/2024re you , , , , never , or living with a partner?Dotusfr8907/06/2024 AUDIT-CAnswerDate RecordedQ1: How often do you have [...] hard at all07/06/2024PHQ-2 AnswerDate RecordedPatient Health Questionnaire-2 Vclwa611Finsanpete [facility] hospital [place] of Occupational Health - Occupational Stress QuestionnaireAnswerDate RecordedDo you feel stress - tense, restless, nervous, or anxious, or unable to sleep at night because yourmind is troubled all the time - these days?Only a oqixyo3407/06/2024Exercise Vital SignAnswerDate RecordedOn average, how many days [...] homeless or living in a longterm (including now)?No07/06/2024Sex and Gender InformationValueDate RecordedSex Assigned at BirthNot on fileLegal SqqJnvn5508/27/2022 7:35 PM EDTGender SuiuvmeyFdic64/15/2023 7:35 PM EDTSexual OrientationNot on filedocumented as of this encounter Plan of Treatment DateTypeDepartmentCare Team (Latest Contact Info)Vstvdpywpcf42/31/2025 2:00 PM EDTOffice Visit [facility] [address] [place] [phone] Jonathan Cowan DPM [address] [address] documented as of this encounter Visit Diagnoses Not on filedocumented in this encounter Additional Health Concerns AssessmentNoted TimePHQ-9 Depression Total Score: 13001/09/2025 8:34 AM EDT documented as of this encounter Care Teams Team MemberRelationshipSpecialtyStart DateEnd Date Gerald Low MD [address] [place] [address] PCP - GeneralFamily Otiwtdnk84/30/24 Peggy Gatica NP Nurse PractitionerFamily Duqkrfta61/29/24documented as of this encounter
--- OUTSIDE RECORDS SUMMARY | 2025-04-05 09:25 | XMS_ITS | Clinical Summary ---
Author Organization [facility] Address [address] [place] [address] Care Team Providers Care Director Security Risk Management Name Role Phone Tomeka Rosado MD Primary Care Provider [phone] Allergies Active AllergyReactionsCriticalityNoted OvquNnimfaxzBjdnsolxgvppCzkfq18/05/2024 TttwihipegsvaEdsjb90/05/3160UqpevtjzhyYnrly67/05/2024 Medications MedicationSigDispense QuantityRefillsLast FilledStart DateEnd DateStatus empagliflozin (Jardiance) 25 mg Take 25 mg by mouth in the morning.Active allopurinol (Zyloprim) 300 mg tablet Take 300 mg by mouth in the morning.Active furosemide (Lasix) 20 mg tablet Take 20 mg by mouth in the morning.Active glimepiride (Amaryl) 4 mg tablet Take 4 mg by mouth before breakfast.Active tamsulosin (Flomax) 0.4 mg 24 hr capsule Take 1 capsule by mouth in the evening.07/31/2023ctive omeprazole (PriLOSEC) [address] capsule Take 40 mg by mouth before breakfast.4Active rosuvastatin (Crestor) 20 mg tablet Indications:Mixed hyperlipidemiaTAKE 1 TABLET IN THE MORNING 90 tablet 5Active bisoprolol (Zebeta) 5 mg tablet Indications:PalpitationsTAKE 1 TABLET IN THE MORNING AND AT BEDTIME 180 tablet 5Active aspirin 81 mg chewable tablet Indications:Elevated troponinChew 1 tablet (81 mg) with breakfast for 90 doses. 90 tablet 501/6Active spironolactone (Aldactone) 25 mg tablet Indications:Elevated troponinTake 1 tablet (25 mg) by mouth in the morning. 30 tablet /5Active sacubitril-valsartan (Entresto) 24-26 mg tablet Indications:Chronic systolic heart failure (CMS/HCC)Take 1 tablet by mouth two times daily. 60 tablet /5Active fluticasone (Flonase) 50 mcg/actuation nasal spray Administer 2 sprays into each nostril in the morning. Shake gently. Before first use, prime pump. After use, clean tip and replace cap.03/22/2025Discontinued (Stop Taking at Discharge) losartan (Cozaar) 100 mg tablet Take 100 mg by mouth in the morning.03/28/2025Discontinued(Med List Cleanup) rosuvastatin (Crestor) 10 mg tablet Indications:Coronary artery disease involving [place] coronary artery of [place] heart without angina pectorisTake 2 tablets (20 mg) by mouth in the morning. 180 tablet Discontinued(Stop Taking at Discharge) hydrALAZINE (Apresoline) 50 mg tablet Indications:Primary hypertensionTake 1 tablet (50 mg) by mouth in the morning and at bedtime. 180 tablet Discontinued(Stop Taking at Discharge) amLODIPine (Norvasc) 10 mg tablet Take 5 mg by mouth if needed. Takes when BP is kxdeqbwt47/08/2025Discontinued (Stop Taking at Discharge) Active Problems ProblemNoted DateDiagnosed DateElevated vchczuxv60/07/2025 Assessment & Plan (03/21/2025 3:13 AM EDT): -Troponin 85->112->43 -Concern for ACS -Will initiate IV heparin infusion -Patient was given Plavix as well as therapeutic Lovenox at outside hospital -N.p.o. for possible cardiac cath -Most recent cardiac cath completed on 07/27/2023 showing mild CAD -Cardiology consult Atrial tachycardia, tzjtamhyfs38/07/2025 Assessment & Plan (03/21/2025 3:13 AM EDT): - Continue beta-janet Adrenal adenoma, left03/21/2025 Assessment & Plan (03/21/2025 3:13 AM EDT): -Continue outpatient follow-up with urology Fluid iifbwikp28/07/2025 Assessment & Plan (03/21/2025 3:13 AM EDT): - BNP elevated at 2610 at outside hospital -He was given 40 mg of IV Lasix with improvement in shortness of breath -Echocardiogram is pending -Strict intake and output Left ankle fmsxjnyv49/28/4485Hbeqqfwyony29/01/2025LLQ pain11/28/2024rthritis 05/31/2024History of tobacco abuse05/31/20244744Opbmqiieono30/17/2024URTI (acute upper respiratory infection)11/16/2023Leukemoid gjuxuivx83/ Overview (10/27/2023): Last Assessment & Plan: WBC of 19 k on labs drawn at [facility] - recheck Pneumonia of left lower lobe due to infectious ektewlha14/ Overview (10/27/2023): Last Assessment & Plan: Left lower lobe infiltrate on CXR, mild resp symptoms including cough. He presented to ED for fever. Will start patient on Doxycycline and treat for bacterial PNA. Left adrenal mass/10/2023 Overview (08/18/2023): Last Assessment & Plan: 1.4 x 1.5 cm left adrenal mass, stable. Check cortisone, aldosterone, metanephrine to make sure Adenoma is not functioning Assessment & Plan (08/18/2023 11:09 AM EST): D/W that he may benefit from seeing a freight forwarder for DM, adrenal mass Abnormal nuclear stress test/10/2023 Overview (08/18/2023): Last Assessment & Plan: Nuclear stress test 07/08 - perfusion defect in LAD distribution. Asymptomatic. Instructed to start using ASA. Patient scheduled for [facility] on 07/29/23 No prior hx of CAD Encounter to establish care with new gydonv97 Overview (08/18/2023): Last Assessment & Plan: New Patient, here to establish care. Reviewed medical, surgical and social hx. Reviewed available old records. Reviewed and updated medication list. New Patient for this practice. Was previously established with Dr Barajas [facility] Near ypifbnc1507/10/2023 Assessment & Plan (08/18/2023 11:07 AM EST): Currently stable, no further episode noted Assessment & Plan (07/10/2023 5:18 PM EST): Recently admitted to [facility] for near syncope, bradycardia, abnormal stress [...] 5:20 PM EST): Frequent PVCs, bigemeny, NSVT Gout/10/2023 Overview (08/18/2023): controlled with allopurinol Nodule of [...] in November. Primary malignant neuroendocrine neoplasm of aewochxf99 Overview (08/18/2023): Last Assessment & Plan: Limited [...] repeat CT chest planned in 09/05. Accelerated wyqryavxzrbz51llergic lonrghbu69/12/2023 08/18/20237366Cufaxp07alance jnudxll49enign prostatic hyperplasia with lower urinary tract sowmuyle88 Chronic xlvkncjoq90iverticulosis of sigmoid colon02/24/2023 08/18/2023Esophageal dtmnimznp01Fall Taaffxrdabpu85Left rotator cuff tear oeilrnqnjit36/12/2023 08/18/2023Obesity (BMI 30-39.9)Other chronic pain02/24/2023 08/18/2023ain in right kneeityriasis rosea02/24/2023 08/18/2023Slow transit efuolzwefwji87Tubular adenoma of colon Type 2 diabetes mellitus with kidney complication, without long-term current use of hfneilh2502/24/2023iabetic polyneuropathy associated with type 2 diabetes jtbebqwb93Mixed ixizevfomspvzc52/12/2023 08/18/2023 Assessment & Plan (03/21/2025 3:13 AM EDT): - Continue rosuvastatin Assessment & Plan (08/18/2023 11:07 AM EST): Continue crestor 20 mg daily Morbid bikjlws15rimary Overview (08/18/2023): Last Assessment & Plan: Too [...] without complication, without long-term current use of mkhiryu11/10/2023 Assessment & Plan (03/21/2025 3:13 AM EDT): - ISS, ACHS Neuroendocrine mgbugbofl58/10/2023 Assessment & Plan (03/21/2025 3:13 AM EDT): - Stable continue monitoring CKD stage 3a, GFR 45-59 ml/min Assessment & Plan (03/21/2025 3:13 AM EDT): - Stable, at baseline Bradycardia by electrocardiogram Assessment & Plan (08/18/2023 11:09 AM EST): Stop bisprolol- no beta blockers at this time Frequent PVCs Assessment & Plan (08/18/2023 11:07 AM EST): F/U with Dr San Encounters DateTypeDepartmentCare KmfmHxmovyhodpg33/14/2025 1:20 PM EDTFollow-Up [facility] at [address] [address] Kanika Sanchez CNP Chronic systolic heart failure (CMS/HCC) (Primary Dx); NICM (nonischemic cardiomyopathy) (CMS/HCC); NSVT (nonsustained ventricular tachycardia) (CMS/HCC); PVC (premature ventricular contraction); Orthostatic hypotension; Coronary artery disease involving [place] coronary artery of [place] heart without angina pectoris; Mixed hyperlipidemia; Benign hypertensive heart disease with heart failure (CMS/HCC)03/21/2025 6:00 PM EDT - 03/21/2025 8:00 PM EDTSurgery [facility] [address] [place] [address] Jai Subramanian MD Coronary oxkqlujduel43/07/2025 1:32 AM EDT - 03/22/2025 2:36 PM EDTHospital Encounter [facility] [address] [place] [address] Sukhjinder Schmitz MD Elevated troponin (Primary Dx); NSVT (nonsustained ventricular tachycardia) (CMS/HCC) Discharge Disposition: Home or Self Care (01)03/21/2025Travelfrom Last 3 Months Family History Medical HistoryRelationNameCommentsCancerBrother 1SamDiabetes type IIBrother 1 SamHypertensionBrother 1SamCancerBrother 2BobDiabetes type IIBrother 2BobCancer FatherSamuel PrestonDiabetes type IIFatherSamuel PrestonHypertensionFatherSamuel PrestonAnginaMotherRegina PrestonCancerMotherRegina PrestonHeart attackMother Yasmin PrestonHeart failureMotherRegina PrestonHypertensionMotherRegina Josep CancerSisterNatalieDiabetes type IISisterNatalieRelationNameStatusComments Brother 1SamBrother 2BobFatherSamuel PrestonMotherRegina PrestonSisterNatalie Social History Tobacco UseTypesPacks/DayYears UsedDateSmoking Tobacco: SvjrboPgberntuzi375.9 10/14/1967 - 09/14/1983Smokeless Tobacco: Never Tobacco Cessation:Counseling Given: Not Answered Alcohol UseStandard Drinks/WeekCommentsNot Currently0 (1 standard drink = 0.6 oz pure alcohol)I rarely drink.[facility] UtilitiesAnswerDate RecordedIn the past 12 months has the [place] Toxicology, gas, oil, or water [email or web address] threatened to shut off services in your home?No03/21/2025Humiliation, Afraid, Rape, and Kick questionnaireAnswerDate RecordedWithin the last year, have you been afraid of your partner or ex-partner?No03/21/2025Emotionally AbusedNot on file03/21/2025 Physically AbusedNot on file03/21/2025Sexually AbusedNot on file03/21/2025 Overall Financial Resource Strain (CARDIA)AnswerDate RecordedHow hard is it for you to pay for the very basics like food, housing, medical care, and heating?Not hard at all03/21/2025TransportationAnswerDate RecordedIn the past 12 months, has lack of transportation kept you from medical appointments or from getting medications?No03/21/2025Lack of Transportation (Non-Medical)Not on file 03/21/2025Housing Stability Vital SignAnswerDate RecordedIn the last 12 months, was there a time when you were not able to pay the mortgage or rent on time?No 03/21/2025In the past 12 months, how many times have you moved where you were living?t any time in the past 12 months, were you homeless or living in a fdc (including now)?No03/21/2025Hunger Vital SignAnswerDate Recorded Within the past 12 months, you worried that your food would run out before you got the money to buymore.Never true03/21/2025Ran Out of Food in the Last YearNot on file03/21/2025Sex and Gender InformationValueDate RecordedSex Assigned at FvtjeCyyi20/13/2024 6:49 AM ESTLegal FhsLvvf7712/12/2021 12:14 AM EDTGender LvsfrgbzCrrq00/13/2024 6:49 AM ESTSexual OrientationHeterosexual or Straight 07/28/2023 6:49 AM EST Last Filed Vital Signs Vital SignReadingTime TakenCommentsBlood Tyaxxopb012/7303/28/2025 1:17 PM EDT Isbve027603/28/2025 1:17 PM XXHYdjirtbkddi78.5 ??C (97.7 ??F)03/22/2025 8:00 AM EDTRespiratory Uycv6765 8:00 AM EDTOxygen Rqhounrbwr46%03/28/2025 1:17 PM EDTInhaled Oxygen Concentration--Skwhvp512 kg (231 lb)03/28/2025 1:17 PM EDT Mjypdh887.8 cm (5' 10 )03/28/2025 1:17 PM EDTBody Mass Index33.151 1:17 PM EDT Plan of Treatment DateTypeDepartmentCare Team (Latest Contact Info)Vxpqumwccep33/25/2025 11:15 AM ESTOffice Visit [facility] [address] [place] [address] Noe San MD [address] [place] [address] Health MaintenanceDue DateLast DoneCommentsMedicare Annual Wellness (AWV) 1950Diabetes: Retinopathy Zuvtwsgqi23/09/1959Depression Screening 1961Zoster Vaccines (1 of 2), 05/15/2016Diabetes: Hemoglobin A1C/OVID-19 Vaccine ( season) /, 10/15/2021, 03/25/2021, Additional history existsInfluenza Vaccine (#1)/, 03/20/2023, 03/27/2022, Additional history existsFall Risk Ermscsrox89dult Tfcgadr95, 10/27/2018, 03/14/20112656TknuxbusfhzAwqcpuhhavil86/16/2021olorectal Cancer ScreeningDiscontinuedPneumococcal Vaccine: 50+ VxaspGvjeamlow88/12/2023, 11/22/2018, 05/21/2018, Additional history existsCT ColonographyDiscontinued FIT-DNADiscontinuedFITDiscontinuedFOBTDiscontinuedHIB VaccinesAged OutNo longer eligible based on patient's age to complete this topicHPV VaccinesAged OutNo longer eligible based on patient's age to complete this topicIPV VaccinesAged OutNo longer eligible based on patient's age to complete this topicMeningococcal B VaccineAged OutNo longer eligible based on patient's age to complete this topicMeningococcal VaccineAged OutNo longer eligible based on patient's age to complete this topicRotavirus VaccinesAged OutNo longer eligible based on patient's age to complete this topicSigmoidoscopyDiscontinued Procedures Procedure NamePriorityDate/TimeAssociated DiagnosisCommentsPOCT GLUCOSE METER UNSOLICITED ETPZODWIipimwm59/08/2025 11:00 AM EDT POCT GLUCOSE METER UNSOLICITED LKXARJIGnkyrxm14/08/2025 7:31 AM EDT LIPID PANELAdd-On03/22/2025 4:26 AM EDT PHOSPHORUSPending Stnbzpmgi39/08/2025 4:26 AM EDT MAGNESIUMPending Jisrqomxj96/08/2025 4:26 AM EDT CBCPending Yzsusvbbo34/08/2025 4:26 AM EDT BASIC METABOLIC PANELPending Iaxyjcbus27/08/2025 4:26 AM EDT POCT GLUCOSE METER UNSOLICITED WGFGZLETafayyh76/07/2025 8:33 PM EDT POCT GLUCOSE METER UNSOLICITED OWDLMPMJinrtks29/07/2025 4:41 PM EDT HIGH SENSITIVITY TROPONIN RYnuyeoy71/07/2025 2:41 PM EDT RIGHT HEART VNQSZtkkbsa65/07/2025 11:29 AM EDT Elevated troponin CORONARY KKTLGIVDYJKBftjplp45/07/2025 11:29 AM EDT Elevated troponin XR CHEST 1 BQJKYAXL58/07/2025 9:26 AM EDT COMPLETE ECHO (TTE) W/ IMAGING QXWLCOrbwaja87/07/2025 9:10 AM EDT POCT GLUCOSE METER UNSOLICITED NVVFYWAGiegqpq44/07/2025 7:25 AM EDT ECG 12-IWQZMFPY73/07/2025 5:02 AM EDT HIGH SENSITIVITY TROPONIN WDuiem6103/21/2025 3:45 AM EDT KEIAtadloa92/07/2025 3:45 AM EDT BASIC METABOLIC CZZAEWeqvrzu27/07/2025 3:45 AM EDT ANTI-FACTOR XAAdd-On03/21/2025 2:09 AM EDT APTTSTAT Add-on03/21/2025 2:09 AM EDT B-TYPE NATRIURETIC FZKPPHAKBTC77/07/2025 2:09 AM EDT CBC WITH AUTO ZRYKHWQJPUQVHOOM86/07/2025 2:09 AM EDT CBC AND IAVFAETYMJEEKMFS06/07/2025 2:09 AM EDT PROTIME-XAELQJP1203/21/2025 2:09 AM EDT HIGH SENSITIVITY TROPONIN ISTAT1 2:09 AM EDT UBKCPVHGWMRLSM97/07/2025 2:09 AM EDT LBLCXVVNEPHHA98/07/2025 2:09 AM EDT COMPREHENSIVE METABOLIC XKZIRVCAU36/07/2025 2:09 AM EDT from Last 3 Months Results * (ABNORMAL) POCT glucose meter (03/22/2025 11:00 AM EDT) Only the most recent of5 resultswithin the time period is included. ComponentValueRef RangeTest MethodAnalysis TimePerformed AtPathologist Signature Glucose MKM736(H)70 - 105 mg/dL03/22/2025 11:11 AM [facility]TM[facility]IAL [facility] ([facility]) Comment:jarizmeSpecimen (Source)Anatomical Location / LateralityCollection Method / VolumeCollection TimeReceived TimeBloodCapillary blood specimen / Lpjypmz2203/22/2025 11:00 AM EDT1 11:11 AM EDT Narrative [facility] ([facility]) - 03/22/2025 11:11 AM EDT Waived Testing in the ED is performed under the ED CLIA certificate #[id number]. Authorizing ProviderResult TypeResult StatusOmarogelio BARBER BLOOD ORDERABLES Final ResultPerforming OrganizationAddressCity/State/ZIP CodePhone Number [facility] ([facility]) [address] [place] [address] * (ABNORMAL) CBC (03/22/2025 4:26 AM EDT) Only the most recent of2 resultswithin the time period is included. ComponentValueRef RangeTest MethodAnalysis TimePerformed AtPathologist Signature Auto WBC9.484.00 - 10.60 10*3/uL03/22/2025 5:15 AM [facility] ([facility]) RBC4.854.20 - 5.70 10*6/uL03/22/2025 5:15 AM [facility] ([facility]) Rmhlduzxti51.913.0 - 17.0 g/dL03/22/2025 5:15 AM [facility] ([facility]) Liimovsbvn53.839.0 - 50.0 %03/22/2025 5:15 AM [facility] ([facility])MCV 88.282.0 - 98.0 fL03/22/2025 5:15 AM [facility] ([facility])MCH28.727.0 - 33.0 pg03/22/2025 5:15 AM [facility] ([facility])MCHC32.532.0 - 35.0 g/dL 03/22/2025 5:15 AM [facility] ([facility])RDW15.9(H)11.5 - 15.0 % 03/22/2025 5:15 AM [facility] ([facility])Twnygapwu642789 - 400 10*3/uL 03/22/2025 5:15 AM [facility] ([facility])Specimen (Source)Anatomical Location / LateralityCollection Method / VolumeCollection TimeReceived TimeBlood Venous blood specimen / UnknownVenipuncture / Edpsmmv0503/22/2025 4:26 AM EDT 03/22/2025 4:57 AM EDT Narrative Authorizing ProviderResult TypeResult StatusOmar Nadir BARBER BLOOD ORDERABLES Final ResultPerforming OrganizationAddressCity/State/ZIP CodePhone Number [facility]) [place] [address] * Phosphorus (03/22/2025 4:26 AM EDT) Only the most recent of2 resultswithin the time period is included. ComponentValueRef RangeTest MethodAnalysis TimePerformed AtPathologist Signature Phosphorus3.72.5 - 5.0 mg/dL03/22/2025 5:25 AM [facility]) Specimen (Source)Anatomical Location / LateralityCollection Method / Volume Collection TimeReceived TimeBloodVenous blood specimen / UnknownVenipuncture / Rsemrah4303/22/2025 4:26 AM EDT1 4:57 AM EDT Narrative Authorizing ProviderResult TypeResult StatusSukhjinder BARBER BLOOD ORDERABLES Final ResultPerforming OrganizationAddressCity/State/ZIP CodePhone Number [facility]) [address] [place] [phone] * Magnesium (03/22/2025 4:26 AM EDT) Only the most recent of2 resultswithin the time period is included. ComponentValueRef RangeTest MethodAnalysis TimePerformed AtPathologist Signature Magnesium2.01.9 - 2.7 mg/dL03/22/2025 5:25 AM [facility]) Specimen (Source)Anatomical Location / LateralityCollection Method / Volume Collection TimeReceived TimeBloodVenous blood specimen / UnknownVenipuncture / Plsaaqc5203/22/2025 4:26 AM EDT1 4:57 AM EDT Narrative Authorizing ProviderResult TypeResult StatusSukhjinder BARBER BLOOD ORDERABLES Final ResultPerforming OrganizationAddressCity/State/ZIP CodePhone Number [facility]) [address] [place] [address] * (ABNORMAL) Lipid panel (03/22/2025 4:26 AM EDT)ComponentValueRef RangeTest MethodAnalysis TimePerformed AtPathologist UdjdwjmmvXfhkmjmgqkgig660(H)<150 mg/dL03/22/2025 7:59 AM [facility] ([facility])Comment: TRIGLYCERIDE REFERENCE RANGE: 20 YEARS AND OLDER ?CARDIOVASCULAR RISK LESS THAN 150 mg/dL ? LOW RISK 150 TO 199 mg/dL ?BORDERLINE RISK 200 mg/dL AND GREATER ? HIGH RISK Hisrizcoiuv25(L)120 - 200 mg/dL03/22/2025 7:59 AM [facility] ([facility]) LDL Jruqlsmrhh920 - 160 mg/dL03/22/2025 7:59 AM [facility] ([facility])HDL 21(L)23 - 92 mg/dL03/22/2025 7:59 AM [facility] ([facility])Non HDL Garmprysxhy3594/08/2025 7:59 AM [facility] ([facility])Total VLDL-C330 - 40 mg/dL03/22/2025 7:59 AM [facility] ([facility])Cholesterol/HDL Ratio4.6 mg/dL03/22/2025 7:59 AM [facility] ([facility])Specimen (Source)Anatomical Location / LateralityCollection Method / VolumeCollection TimeReceived TimeBlood Venous blood specimen / UnknownVenipuncture / Tgqmjvp7203/22/2025 4:26 AM EDT 03/22/2025 4:57 AM EDT Narrative Authorizing ProviderResult TypeResult StatusOmar Nadir BARBER BLOOD ORDERABLES Final ResultPerforming OrganizationAddressCity/State/ZIP CodePhone Number [facility] ([facility]) [address] [place] [address] * (ABNORMAL) Basic metabolic panel (03/22/2025 4:26 AM EDT) Only the most recent of2 resultswithin the time period is included. ComponentValueRef RangeTest MethodAnalysis TimePerformed AtPathologist Signature Txydga864768 - 145 mmol/L1 5:25 AM [facility] ([facility]) Potassium4.23.5 - 5.1 mmol/L1 5:25 AM [facility] ([facility]) Nxpjchna53618 - 107 mmol/L1 5:25 AM [facility] ([facility])CO223 21 - 31 mmol/L1 5:25 AM [facility] ([facility])BUN30(H)7 - 25 mg/dL03/22/2025 5:25 AM [facility] ([facility])Creatinine1.34(H)0.70 - 1.30 mg/dL03/22/2025 5:25 AM [facility] ([facility])Aprtevu318(H)70 - 100 mg/dL03/22/2025 5:25 AM [facility] ([facility])Calcium9.18.6 - 10.3 mg/dL 03/22/2025 5:25 AM [facility] ([facility])Anion Ybt964 - 20 mmol/L 03/22/2025 5:25 AM [facility] ([facility])eGFR55.2(L)>60.0 mL/min/1.73m*2 03/22/2025 5:25 AM [facility] ([facility])Comment:[facility]???s estimated glomerular filtration rate (eGFR) will no longer include consideration of race in its calculation. The National Kidney Foundation???s eGFR Task Force developed new recommendations for the estimation of the glomerular filtration rate in the [place] They recommend immediate implementation of the new equation refit without the race variable in all la boratories because the calculation does not include race. In addition to not including race in the calculation and reporting, it included diversity in its development, and has acceptable performance characteristics and potential consequences that do not disproportionately affect any one group of individuals. BUN/Creatinine Ratio22. 5:25 AM [facility] ([facility])Specimen (Source)Anatomical Location / LateralityCollection Method / VolumeCollection TimeReceived TimeBloodVenous blood specimen / UnknownVenipuncture / Unknown 03/22/2025 4:26 AM EDT1 4:57 AM EDT Narrative Authorizing ProviderResult TypeResult StatusOmar Nadir BARBER BLOOD ORDERABLES Final ResultPerforming OrganizationAddressCity/State/ZIP CodePhone Number [facility] ([facility]) [address] [place] [address] * (ABNORMAL) High Sensitivity Troponin I (03/21/2025 2:41 PM EDT) Only the most recent of3 resultswithin the time period is included. ComponentValueRef RangeTest MethodAnalysis TimePerformed AtPathologist Signature High Sensitivity Troponin I28(H)<20 ng/L1 3:55 PM EDTMEMORIAL [facility] ([facility])Specimen (Source)Anatomical Location / LateralityCollection Method / VolumeCollection TimeReceived TimeBloodVenous blood specimen / Unknown Venipuncture / Fuoixzy9303/21/2025 2:41 PM EDT1 3:21 PM EDT Narrative Authorizing ProviderResult TypeResult StatusOmar Nadir BARBER BLOOD ORDERABLES Final ResultPerforming OrganizationAddressCity/State/ZIP CodePhone Number [facility] ([facility]) [address] [place] [address] * CORONARY ANGIOGRAPHY, RIGHT HEART CATH (03/21/2025 [...] informed consent. ??he was brought to the senior laboratory technician in a fasting state. The right neck area was prepped and draped in usual fashion. Micropuncture technique was used for access under ultrasound guidance into the right internal jugular vein. ??A 6[place] x 11 cm sheath was placed. ?? The right wrist area was prepped and draped in usual fashion. Micropuncture technique was used for access in the radial artery. ??A 6-[place] x 11 cm sheath was placed. ??Verapamil was given through the sheath, and heparin was administered intravenously. ?? A 5-[place] Ponce catheter was used for right heart catheterization and measurement of pressures and calculation of cardiac output using the estimated Pretty method. ??Ponce catheter was removed. Bilateral selective coronary angiography was then performed using 6-[place] JL3.5 diagnostic catheter for engagement of the left coronary artery and 6-[place] Citizen JR5 diagnostic catheter for engagement of the [...] pain [R07.89] Authorizing ProviderResult TypeResult StatusGeorge Moris [facility] CATH PROCEDURESFinal Result * XR chest [...] Anthony Herman. Authorizing ProviderResult TypeResult StatusOmar Nadir HERNANDEZIMG XR PROCEDURESFinal Result * COMPLETE ECHO (TTE) W/ IMAGING AGENT (03/21/2025 9:10 AM EDT)Anatomical Region LateralityModalityOtherSpecimen (Source)Anatomical Location / Laterality Collection Method / VolumeCollection TimeReceived Time03/21/2025 8:32 AM EDT Narrative 03/21/2025 12:08 PM EDT 1 1 [facility] Heart Station [address] [place] [address] [phone] (fax) Echocardiogram-[facility] Name: BRENT CAR Study Date: 03/21/2025 08:32 AM B/P: 121 mmHg/55 mmHg HR: 75 bpm Date of : 1950 Location: [facility] Height: 70 in. Age: 74 year(s) [...] No pericardial effusion. Procedure Staff Reading Group: [facility] Referring Physician: TOMEKA ROSADO Instrumental Music Teacher: MARK Castro ??Ordering Physician: SKYLAR MJEIA Wall Motion Scores -1 - hyperkinesia, 0 - not evaluated, 1 - normal, 2 - hypokinesia, 3 - akinesia, 4 - dyskinesia Procedure Note Megan Harrington MD - 03/21/2025 1 1 [facility] Heart Station [address] [place] [address] [phone] (fax) Echocardiogram-[facility] Name: BRENT CAR Study Date: 03/21/2025 08:32 AM B/P: 121 mmHg/55 mmHg HR: 75 bpm Date of : 1950 Location: [facility] Height: 70 in. Age: 74 year(s) [...] No pericardial effusion. Procedure Staff Reading Group: [facility] Referring Physician: TOMEKA ROSADO Instrumental Music Teacher: MARK Castro Ordering Physician: SKYLAR MEJIA Wall Motion Scores -1 - hyperkinesia, 0 - not evaluated, 1 - normal, 2 - hypokinesia, 3 - akinesia, 4 - dyskinesia Authorizing ProviderResult TypeResult StatusArquirino Mejia [facility] ECHO PROCEDURES Final Result * ECG 12 lead (03/21/2025 5:02 AM EDT)ComponentValueRef RangeTest MethodAnalysis TimePerformed AtPathologist SignatureVentricular Dbxc14SRCBO MUSEAtrial Rate 74BPMGE MUSEPR Nykmlntj421xhQB MUSEQRS ZZQSRGLL643lyOA MUSEQT Jxqntpyf672btKA MUSEQTC CALCULATION(COLLEEN)552msGE MUSEP Fubq24pqnrmbvDQ MUSER-Lsvd359ilasmkm GE MUSET Wave [place]-12degreesGE MUSESpecimen (Source)Anatomical Location / LateralityCollection Method / [...] on 03/22/2025 10:43:39 AM Authorizing ProviderResult TypeResult StatusNortheast [facility] ORDERABLESFinal ResultPerforming OrganizationAddressCity/State/ZIP CodePhone Number GE MUSE * (ABNORMAL) CBC auto differential (03/21/2025 2:09 AM EDT)ComponentValueRef RangeTest MethodAnalysis TimePerformed AtPathologist SignatureAuto WBC11.08(H) 4.00 - 10.60 10*3/uL03/21/2025 2:34 AM [facility] ([facility])RBC5.20 4.20 - 5.70 10*6/uL03/21/2025 2:34 AM [facility] ([facility])Hemoglobin 14.913.0 - 17.0 g/dL03/21/2025 2:34 AM [facility] ([facility])Hematocrit 45.839.0 - 50.0 %03/21/2025 2:34 AM [facility] ([facility])MCV88.182.0 - 98.0 fL03/21/2025 2:34 AM [facility] ([facility])MCH28.727.0 - 33.0 pg 03/21/2025 2:34 AM [facility] ([facility])MCHC32.532.0 - 35.0 g/dL 03/21/2025 2:34 AM [facility] ([facility])RDW15.9(H)11.5 - 15.0 % 03/21/2025 2:34 AM [facility] ([facility])Neutrophils %72.8(H)40.0 - 72.0 %03/21/2025 2:34 AM [facility] ([facility])Lymphocytes %16.7(L)20.0 - 45.0 %03/21/2025 2:34 AM [facility] ([facility])Monocytes %8.65.0 - 12.0 %03/21/2025 2:34 AM [facility] ([facility])Eosinophils %1.10.0 - 6.0 %03/21/2025 2:34 AM [facility] ([facility])Basophils %0.40.0 - 1.0 % 03/21/2025 2:34 AM [facility] ([facility])Neutrophils Absolute8.08(H) 1.60 - 7.60 10*3/uL03/21/2025 2:34 AM [facility] ([facility])Lymphocytes Absolute1.851.20 - 4.00 10*3/uL03/21/2025 2:34 AM [facility] ([facility])Monocytes Absolute0.950.10 - 1.00 10*3/uL03/21/2025 2:34 AM [facility] ([facility])Eosinophils Absolute0.120.00 - 0.50 10*3/uL03/21/2025 2:34 AM [facility] ([facility])Basophils Absolute0.040.00 - 0.20 10*3/uL 03/21/2025 2:34 AM [facility] ([facility])Nxwlvwqbe495(H)150 - 400 10*3/uL03/21/2025 2:34 AM [facility] ([facility])nRBC %0.00 %03/21/2025 2:34 AM [facility] ([facility])Immature Granulocytes %0.40.0 - 1.0 % 03/21/2025 2:34 AM [facility] ([facility])Immature Granulocytes Absolute 0.040.00 - 0.20 10*3/uL03/21/2025 2:34 AM [facility] ([facility]) Specimen (Source)Anatomical Location / LateralityCollection Method / Volume Collection TimeReceived TimeBloodVenous blood specimen / UnknownVenipuncture / Bdwyumq5903/21/2025 2:09 AM EDT1 2:20 AM EDT Narrative Authorizing ProviderResult TypeResult StatusSkylar Mejia [facility] BLOOD ORDERABLES Final ResultPerforming OrganizationAddressCity/State/ZIP CodePhone Number [facility] ([facility]) [address] [place] [address] * aPTT - baseline (03/21/2025 2:09 AM EDT)ComponentValueRef RangeTest Method Analysis TimePerformed AtPathologist FvyivmqkcxFPY82.425.0 - 35.0 Seconds 03/21/2025 3:09 AM [facility] ([facility])Comment:Clinical significance of the APTT is questionable in the presence of heparin.Specimen (Source) Anatomical Location / LateralityCollection Method / VolumeCollection Time Received TimeBloodVenous blood specimen / UnknownVenipuncture / Unknown 03/21/2025 2:09 AM EDT1 2:15 AM EDT Narrative Authorizing ProviderResult TypeResult StatusSkylar Mejia [facility] BLOOD ORDERABLES Final ResultPerforming OrganizationAddressCity/State/ZIP CodePhone Number [facility]) [address] [place] [address] * Protime-INR (03/21/2025 2:09 AM EDT)ComponentValueRef RangeTest MethodAnalysis TimePerformed AtPathologist CyfrgsjdtMhujjiq69.412.3 - 14.8 Yhzegsu1503/21/2025 2:42 AM [facility] ([facility])INR1.020.90 - 1.101 2:42 AM EDT [facility] ([facility])Comment: ACCCP RECOMMENDED INR FOR [...] TimeReceived TimeBloodVenous blood specimen / UnknownVenipuncture / Nhjbvim0903/21/2025 2:09 AM EDT1 2:15 AM EDT Narrative Authorizing ProviderResult TypeResult StatusMeAnt[facility] BLOOD ORDERABLES Final ResultPerforming OrganizationAddressCity/State/ZIP CodePhone Number [facility] ([facility]) [address] [place] [address] * Anti-Xa (Heparin Level) (03/21/2025 2:09 AM EDT)ComponentValueRef RangeTest MethodAnalysis TimePerformed AtPathologist SignatureAnti-Xa (Heparin)0.450.3 - 0.7 IU/mL03/21/2025 3:10 AM [facility]TM[facility] ([facility])Comment:Rivaroxaban and Apixaban will interfere with the anti Xa assay used to monitor UFH and LMWH.Specimen (Source)Anatomical Location / LateralityCollection Method / VolumeCollection TimeReceived TimeBloodVenous blood specimen / Unknown Venipuncture / Kzcpvsu1603/21/2025 2:09 AM EDT1 2:15 AM EDT Narrative Authorizing ProviderResult TypeResult StatusSkylar [facility] ORDERABLES Final ResultPerforming OrganizationAddressCity/State/ZIP CodePhone Number [facility] ([facility]) [address] [place] [address] * (ABNORMAL) B-type natriuretic peptide (03/21/2025 2:09 AM EDT)ComponentValue Ref RangeTest MethodAnalysis TimePerformed AtPathologist UklbbudlhTVB716(H)0 - 100 pg/mL03/21/2025 2:50 AM [facility] ([facility])Specimen (Source) Anatomical Location / LateralityCollection Method / VolumeCollection Time Received TimeBloodVenous blood specimen / UnknownVenipuncture / Unknown 03/21/2025 2:09 AM EDT1 2:20 AM EDT Narrative Authorizing ProviderResult TypeResult StatusAlbany Medical Centersharona [facility] BLOOD ORDERABLES Final ResultPerforming OrganizationAddressCity/State/ZIP CodePhone Number [facility] ([facility]) [address] [place] [phone] * (ABNORMAL) Comprehensive metabolic panel (03/21/2025 2:09 AM EDT)Component ValueRef RangeTest MethodAnalysis TimePerformed AtPathologist SignatureSodium 303191 - 145 mmol/L1 2:46 AM [facility] ([facility])Potassium 4.23.5 - 5.1 mmol/L1 2:46 AM [facility] ([facility])Zyvnzoqq633 98 - 107 mmol/L1 2:46 AM [facility] ([facility])JU58269 - 31 mmol/L1 2:46 AM [facility] ([facility])Anion Gwi622 - 20 mmol/L 03/21/2025 2:46 AM [facility] ([facility])BUN31(H)7 - 25 mg/dL03/21/2025 2:46 AM [facility] ([facility])Creatinine1.33(H)0.70 - 1.30 mg/dL 03/21/2025 2:46 AM [facility] ([facility])BUN/Creatinine Ratio23.3 03/21/2025 2:46 AM [facility] ([facility])Lhcfktb242(H)70 - 100 mg/dL 03/21/2025 2:46 AM [facility] ([facility])Calcium9.48.6 - 10.3 mg/dL 03/21/2025 2:46 AM [facility] ([facility])GGW0486 - 39 U/L1 2:46 AM [facility] ([facility])ALT (SGPT)97 - 52 U/L1 2:46 AM [facility] ([facility])Alkaline Xzwxoijbucy47399 - 104 U/L1 2:46 AM [facility] ([facility])Total Protein7.06.0 - 8.3 g/dL03/21/2025 2:46 AM [facility] ([facility])Albumin4.33.5 - 5.7 g/dL03/21/2025 2:46 AM [facility] ([facility])Total Bilirubin0.60.3 - 1.0 mg/dL03/21/2025 2:46 AM [facility] ([facility])eGFR55.7(L)>60.0 mL/min/1.73m* 2:46 AM [facility] ([facility])Comment:[facility]???s estimated glomerular filtration rate (eGFR) will [...] TimeBloodVenous blood specimen / Unknown Venipuncture / Upjmzud7003/21/2025 2:09 AM EDT1 2:20 AM EDT Narrative Authorizing ProviderResult TypeResult StatusMeshaorna Pir [facility] BLOOD ORDERABLES Final ResultPerforming OrganizationAddressCity/State/ZIP CodePhone Number [facility] ([facility]) [address] [place] [address] from Last 3 Months Insurance Advance Directives * Full Code (Latest Code Status on File) Date ActivatedDate CljavqpwjocFkexgbit01/7/2025 2:57 AM03/22/2025 4:36 PM Care Teams Team MemberRelationshipSpecialtyStart DateEnd Date Tomeka Rosado MD [address] [place] [address] PCP - GeneralNurse Practitioner11/22/24
--- OUTSIDE RECORDS SUMMARY | 2025-04-05 09:25 | XMS_ITS | Encounter Summary ---
Author Organization [facility] Address [address] [place] [address] Care Team Providers Care Displayer Name Role Phone Peggy Gatica [facility] Unavailable [phone] Gerald Low MD Primary Care Provider [phone] Encounter Details DateTypeDepartmentCare Team (Latest Contact Info)Okisfsnyrch55/17/2025amboo flowsheet [facility] [address] [place] [phone] Jonathan Cowan DPInna [address] [address] Social History Tobacco UseTypesPacks/DayYears UsedDateSmoking Tobacco: PxqppjQbwzorcoqn3830012 - 1984Passive Smoke Exposure: NeverSmokeless Tobacco: NeverAlcohol UseStandard Drinks/WeekCommentsYes0 (1 standard drink = 0.6 oz pure alcohol)[id number] Health LiteracyAnswerDate RecordedHow often do you need to have someone help you when you read instructions, pamphlets, or other written material from your doctor or pharmacy?Eahiqv2407/06/2024Humiliation, Afraid, Rape, and Kick questionnaireAnswerDate RecordedWithin the last year, have you been afraid of your partner or ex-partner?No02/18/2023Within the last year, have you been humiliated or emotionally abused in other ways by your partner or ex-partner?No 09/06/2023Within the last year, have you been kicked, [...] relatives?Once a week07/06/2024How often do you attend druze or yazdanism services?Patient ixwbqpug88/22/2025Do you belong to any clubs or organizations such as druze groups, unions, [employer] or athletic roseline ups, or school groups?No07/06/2024How often do you attend meetings of the clubs or organizations you belong to?Never07/06/2024re you , , , , never , or living with a partner?Jiblonc6507/06/2024 AUDIT-CAnswerDate RecordedQ1: How often do you have [...] hard at all07/06/2024PHQ-2 AnswerDate RecordedPatient Health Questionnaire-2 Zgtko672[facility]inen[facility] [place] [facility] - Occupational Stress QuestionnaireAnswerDate RecordedDo you feel stress - tense, restless, nervous, or anxious, or unable to sleep at night because yourmind is troubled all the time - these days?Only a uoffhl7107/06/2024Exercise Vital SignAnswerDate RecordedOn average, how many days [...] steady place to sleep or slept in formerly [facility] (including now)?No02/18/2023Housing Stability Vital SignAnswerDate RecordedIn the last 12 months, was there a time when you were not able to pay the mortgage or rent on time?No07/06/2024In the past 12 months, how many times have you moved where you were living?t any time in the past 12 months, were you homeless or living in a group home (including now)?No07/06/2024Sex and Gender InformationValueDate RecordedSex Assigned at BirthNot on fileLegal IshFple0908/27/2022 7:35 PM EDTGender ZtrhisyrQwvf55/15/2023 7:35 PM EDTSexual OrientationNot on filedocumented as of this encounter Plan of Treatment DateTypeDepartmentCare Team (Latest Contact Info)Hvopuswlxkv13/31/2025 2:00 PM EDTOffice Visit [facility] [address] [place] [address] Jonathan Cowan DPM [address] [address] documented as of this encounter Visit Diagnoses Not on filedocumented in this encounter Additional Health Concerns AssessmentNoted TimePHQ-9 Depression Total Score: 8:34 AM EDT documented as of this encounter Care Teams Team MemberRelationshipSpecialtyStart DateEnd Date Gerald Low MD [address] [place] [address] PCP - GeneralFamily Dhrqebsk62/30/24 Peggy Gatica NP Nurse PractitionerFamily Gihrilqw46/29/24documented as of this encounter
--- OUTSIDE RECORDS SUMMARY | 2025-04-05 09:25 | XMS_ITS | Clinical Summary ---
Author Organization [employer]) s tem Address [id number] [address] [place] [address] Care Team Providers Care Stage Set Designer Name Role Phone Renea Barajas DO Primary Care Provider Unavaila ble Allergies Active AllergyReactionsCriticalityNoted NtttRecfgjwcJbwevgbbqgkv09/10/2018 Ciprofloxacin Hcl06/24/20210798Cndrhtryzp28/10/2022 Medications MedicationSigDispense QuantityRefillsLast FilledStart DateEnd DateStatus allopurinoL (ZYLOPRIM) 300 mg tablet 09/17/2020ctive amLODIPine (NORVASC) 10 mg tablet 09/17/2020ctive bisoprolol (ZEBETA) 5 mg tablet 09/17/2020ctive fluticasone propionate (FLONASE) 50 mcg/actuation nasal spray 09/17/2020ctive furosemide (LASIX) 20 mg tablet 10/07/2020ctive glimepiride (AMARYL) 4 mg tablet 10/07/2020ctive losartan (COZAAR) 100 mg tablet 09/17/2020ctive omeprazole (PriLOSEC) 40 mg capsule 11/01/2020ctive rosuvastatin (CRESTOR) 10 mg tablet 09/17/2020ctive pioglitazone (ACTOS) 30 mg tablet Take 30 mg by mouth daily.Active Active Problems ProblemNoted DateDiagnosed DateDiabetes mellitus type 2 in obese06/24/2021 Overview (09/14/2023): replacing diagnoses that were inactivated after the 09/13 regulatory import Family History Medical HistoryRelationNameCommentsPancreatic cancerBrotherAneurysmFatherCancer MotherHeart diseaseMotherThyroid cancerMotherBreast cancerSisterRelationName StatusCommentsBrotherAliveFatherDeceasedMotherDeceasedSisterAliveSon 1AliveSon 2 Alive Social History Tobacco UseTypesPacks/DayYears UsedDateSmoking Tobacco: FormerCigarettesQuit: 1983Smokeless Tobacco: FormerQuit: 1983Alcohol UseStandard Drinks/WeekComments Yes0 (1 standard drink = 0.6 oz pure alcohol)sociallyChildcareAnswerDate WntmtaqoYwrphjkkmRzjwwnf92/12/2019EmploymentAnswerDate RecordedEmploymentUnknown 11/24/2018Purpose - LifeAnswerDate RecordedPurpose and direction in lifeUnknown 07/26/2020ex and Gender InformationValueDate RecordedSex Assigned at BirthNot on fileLegal RpfPmdu1701/18/2015 11:30 AM EDTGender IdentityNot on fileSexual OrientationNot on file Last Filed Vital Signs Vital SignReadingTime TakenCommentsBlood Cmdxyiyv693/62006/24/2021 1:16 PM EST Wsjgv358205/01/2015 12:00 AM HJONjowwnjtqrk39.9 ??C (98.4 ??F)06/24/2021 1:16 PM ESTRespiratory Rate--Oxygen Saturation--Inhaled Oxygen Concentration--Weight 105.2 kg (232 lb)06/24/2021 1:16 PM WTCFlrzec951.8 cm (5' 10 )06/24/2021 1:16 PM ESTBody Mass Index33.29006/24/2021 1:16 PM EST Plan of Treatment Health MaintenanceDue DateLast DoneCommentsDiabetic Ophthalmology Exam1950 Depression Ofwykvzkw48/09/1961Tobacco Ujhyatqya92/09/1961bdominal Aortic Aneurysm (AAA) Jfmqvh6403/23/2014Fall Risk Pzcmtjwzu97/09/2014Zoster (Shingles) Vaccine (2 of 3), 05/15/20168614Rdqnvwvvuud89, 10/14/2010COVID-19 Vaccine ( season)/2021, 08/07/2020, 07/17/2020Influenza Ikmfvda16/, 02/24/2020, 03/09/2019, Additional history existsDTaP,Tdap and Td Vaccines (3 - Td or Tdap)10/27/2028 10/27/2018, 03/14/2011 Medical Devices Not on file Procedures Procedure NamePriorityDate/TimeAssociated DiagnosisCommentsCOLONOSCOPYRoutine 11/28/2020 Rectal bleeding from Last 3 Months or Most Recently Relevant to Health Maintenance Results * Colonoscopy (11/28/2020) Narrative Authorizing ProviderResult TypeResult StatusMichaevenessa DANIELS PROCEDURE ORDERABLESFinal ResultPerforming OrganizationAddressCity/State/ZIP CodePhone Number MANUALLY TRANSCRIBED RESULTS from Last 3 Months or Most Recently Relevant to Health Maintenance Insurance Care Teams Team MemberRelationshipSpecialtyStart DateEnd Renea Barajas DO PCP - [facility]11/21/20
--- OUTSIDE RECORDS SUMMARY | 2025-04-05 09:29 | XMS_ITS | CCD ---
Author Organization [facility] Care Team Providers Care De Icer Installer Name Role Phone PHYSICIAN, DEFAULT Admitting Unavailable PHYSICIAN, DEFAULT Attending Unavailable Vanessa Steele Unavailable [phone] Unavailable Unavailable CEDRIC, DR MENDEZ Primary [...] e Mohpamela, Dr. Neftali Cormier Admitting Unavailable Benson, Dr. Neftali Cormier Attending Unavailable Benson, Dr. Neftali Cormier Admitting Unavailable Benson, Dr. Neftali Cormier Attending Unavailable Xavi Thompson Referring Unavailable Vanessa Steele Primary Care UnavailNeftali Crawford Attending Unavailable Dinary, Fazel Admitting Unavailable Dinary, Fazel Attending Unavailable Cedric, Dr. Vanessa Whitley Referring Unavai lable Stepan DO, Renea G Primary Care Provider Jamie HERNANDEZ, [facility] Primary Care Provider Unavailable Primary Care Provider UnavailMaribeth Celeste Attending Unavailable STEPAN, RENEA Referring Unavailable Neftali Knowles MD Unavailable Jamie HERNANDEZ, [facility] Primary Care Provider Jamie HERNANDEZ, [facility] Primary Care Provider Stepan DO, Renea G Unavailable [employer] ENTERTAINMENT MUSICIAN, Miriam Unavailable Maranda HERNANDEZ, [facility] Primary Care Provider Jamie HERNANDEZ, [facility] Primary Care Provider [facility] Primary Care Unavailable NEFTALI KNOWLES Attending Unavailable [facility] Care Unavailable DINARY, FAZEL Attending Unavailable CHOWDHRY, VIC Referring Unavailable [facility] Primary Care Unavailable DINARY, FAZEL Attending Unavailable DINARY, FAZEL Referring Unavailable [facility] Primary Care Unavailable NEFTALI KNOWLES Referring Unavailable [facility] Primary Care Unavailable DINARY, FAZEL Attending Unavailable DINARY, FAZEL Referring Unavailable [facility] Primary Care Unavailable [employer] ENTERTAINMENT MUSICIAN, Miriam Unavailable Stepan DO, Renea G Unavailable Tomeka Rosado Attending Unavailable Tomeka Rosado Admitting Unavailable Jamie HERNANDEZ, [facility] Primary Care Provider GRACE JUSTICE Referring Unavailable FAWWAD, ALEXANDER Primary Care Unavailable GRACE JUSTICE Attending Unavailable GRACE JUSTICE Referring Unavailable JAMIE, ALEXANDER Primary Care Unavailable Alonzo ROSACTomeka Attending Provider Tomeka Mcgregor Primary Care Provider Renea Barajas DO Primary Care Provider Unavaila Gerald Avendano MD Primary Care Provider [phone] Pj Isabel DO Attending Provider ROSENDO SANCHEZ Attending Unavailable PIRKL, LEE ANN Referring Unavailable HORANI, BELEN Referring Unavailable PIRKL, LEE ANN Referring Unavailable HORANI, BELEN Referring Unavailable ANTONIA, NOE Attending Unavailable ANTONIA, NOE Attending Unavailable MASSOUH, RAFIK Referring Unavailable HORANI, BELEN Admitting Unavailable HORANI, BELEN Attending Unavailable GATICAMIRIAM HAM Attending UnavailJENNIFFER Mcclain Attending Unavailable AICHHOLAlan, TOMEKA Attending Unavailable AICHHOLZ, TOMEKA Attending Unavailable JENNIFFER SEARS Attending Unavailable AICHHOLAlan, TOMEKA Attending Unavailable MIRIAM GATICA Attending UnavailJENNIFFER Mcclain Attending Unavailable MIRIAM GATICA Referring UnavailJENNIFFER Mcclain Referring Unavailable ALONZO, TOMEKA Attending Unavailable JENNIFFER SEARS Attending Unavailable JONATHAN PETTY Attending Unavailable ALONZO, TOMEKA Referring Unavailable JONATHAN PETTY Referring Unavailable Allergies Allergy ClassificationReported Allergen(s)Allergy TypeDate of OnsetReaction(s) FacilityAngiotensin Converting Enzyme (GODWIN) Inhibitors (4 sources)Lisinopril; Translations: [Lisinopril TABS]Drug Zwpynst81-29-4223 [facility] Work Phone: Macrolides (antibiotic) (1 source)ErythromycinDrug Bxdemkk20-22-2295Igzfw (See Comments)SY[facility]IE Work Phone: Quinolones (antibiotic) (4 sources)Ciprofloxacin; Translations: [ciprofloxacin]Drug Czslffz13-63-9075 Other (See Comments)[facility]IE (20 sources)Ciprofloxacin; Translations: [ciprofloxacin]Drug Mzaopir91-86-4929 Unknown, Other, Other (See Comments)[facility] (20 sources)Lisinopril; Translations: [Lisinopril TABS]Drug Vtpdpzs76-50-1256 Unknown, JmhdrDU-Gyjodzesjiefiiye-Tptjtxkx SJW 450 DO Work Phone: (6 sources)Amino Acids; Translations: [LISINOPRIL]Drug Gfparhc74-66-9674[facility]yhG[facility] (1 source)CiprofloxacinDrug Allergy Repository (1 source)ErythromycinDrug Allergy Repository (20 sources)Erythromycin; Translations: [ERYTHROMYCIN]Drug Qnvgvbu63-12-7424 Unknown, GI bleeding, Other (See Comments), GI intolerance, OtherUnSelect [facility] Work Phone: (20 sources)Azithromycin; Translations: [AZITHROMYCIN]Drug Arydicx30-86-1472 UnknownNOWI [facility] (20 sources)LisinoprilAllergy to fwubymdwu48-59-2753HeutwXCQB Healthcare Medications Current Medications MedicationDrug Class(es)DatesSig (Normalized)Sig (Original)allopurinol 300 mg oral tablet (20 sources)Xanthine Oxidase InhibitorStart: 09-17-2020 End: 02-63-0915hhvw 1 tablet by mouth once dailyallopurinol (Zyloprim) 300 MG tablet Indications: Gout, unspecified cause, unspecified chronicity, unspecified site Take 1 tablet (300 mg) by mouth Daily 90 tablet 1 11/03/2024 Active Allopurinol 300 MG Oral Tablet Quantity: 0 Refills: 0 Ordered: 08-Jan-2021 DO ActiveamLODIPine 10 mg oral tablet (20 sources)Dihydropyridine Calcium Channel BlockerStart: 09-17-2020 End: 02-22-0324wyhy 1 tablet by mouth once dailyamLODIPine (NORVASC) 10 MG tablet Take 1 tablet by mouth daily 0 09/17/2020 Active End: 94-63-5097doan 5 mg by mouth every twenty-four hours as neededamLODIPine (Norvasc) 10 MG tablet Take 5 mg by mouth Daily as needed 01/09/2025 Discontinued (Therapy completed)amLODIPine Besylate 10 MG Oral Tablet Quantity: 0 Refills: 0 Ordered: 08-Jan-2021 DO Activeamoxicillin 875 mg oral tablet (1 source)Penicillin-class AntibacterialStart: 02-49-4802nipk 1 tablet by mouth every twelve hoursamoxicillin 875 mg / clavulanate 125 mg oral tablet (19 sources)Penicillin-class AntibacterialStart: 11-28-2024 End: 98-11-0765edtn 1 tablet by mouth in the morningamoxicillin-clavulanate (Augmentin) 875-125 MG tablet Indications: Diverticulitis Take 1 tablet (875 mg) by mouth in the morning and 1 tablet (875 mg) before bedtime. Do all this for 10 days. 20 tablet 11/28/2024 12/08/2024 ActiveStart: 11-57-9889xazd 1 tablet by mouth every twelve hoursAmoxicillin-Pot Clavulanate 875-125 MG Oral Tablet TAKE 1 TABLET EVERY 12 HOURS UNTIL GONE. Quantity: 10 Refills: 0 Ordered: 23-Jan-2021 Irwin Batista MD Start : 23-Jan-2021 Activeaspirin 81 mg oral tablet (20 sources)Platelet Aggregation Inhibitor, Nonsteroidal Anti-inflammatory Drug Start: 58-87-0106qhky 1 tablet by mouth once dailyAspirin 81 mg tablet Active 81 MG PO Daily March 25, 2025 12:00am Complies with drug therapyStart: 07-27-2023 End: 94-38-4625pmls 1 tablet by mouth once dailyaspirin 81 MG chewable tablet Take 1 tablet by mouth daily 07/27/2023 Activetake 1 tablet by mouth once daily aspirin 81 MG EC tablet Take 81 mg by mouth Daily Activebisoprolol fumarate 5 mg oral tablet (20 sources)beta-Adrenergic BlockerStart: 01-03-2025 End: 69-73-7434vmvf 1 tablet by mouth once dailybisoprolol (Zebeta) 5 MG tablet Take 5 mg by mouth Daily 01/03/2025 ActiveStart: 04-02-2024 End: 12-94-9166cvdwvwntmj (Zebeta) 5 MG tablet 04/02/2024 04/12/2024 Discontinued (Duplicate order)Start: 07-10-2023 End: 93-79-1978cgppfslohc (Zebeta) 10 MG tablet Indications: Primary hypertension TAKE 1 TABLET IN THE MORNING 90 tablet 3 10/14/2023 01/09/2025 Discontinued (Therapy completed)take 1 tablet by mouth twice dailybisoprolol (Zebeta) 5 mg tablet Take 1 tablet (5 mg) by mouth 2 times a day. Active Bisoprolol Fumarate 5 MG Oral Tablet Quantity: 0 Refills: 0 Ordered: 08-Jan-2021 DO Activedapagliflozin 10 mg oral tablet (2 sources)Sodium-Glucose Cotransporter 2 InhibitorStart: 07-20-2023 End: 16-26-3634fefh 1 tablet by mouth in the morningFarxiga 10 MG Indications: Stage 3a chronic kidney disease (HCC) ([facility]) Take 1 tablet (10 mg) bymouth in the morning. 90 tablet 0 07/20/2023 07/30/2023 Discontinued (Cost of medication)empagliflozin 25 mg oral tablet (20 sources)Sodium-Glucose Cotransporter 2 InhibitorStart: 07-30-2023 End: 92-68-4473gyfm 1 tablet by mouth once dailyempagliflozin (Jardiance) 25 MG Indications: Stage 3a chronic kidney disease ([facility]-HCC) , Type 2 diabetes mellitus with stage 3a chronic kidney disease, without long-term current use of insulin ([facility]) Take 1 tablet (25 mg) by mouth Daily 90 tablet 1 08/23/2024 Active fluticasone propionate 0.05 mg/actuat metered dose nasal spray (20 sources)CorticosteroidStart: 03-10-2025 End: 46-70-9997jkap 1 spray(s) nasal route once dailyStart: 09-17-2020 fluticasone (FLONASE) 50 MCG/ACT nasal spray 2 sprays daily 09/17/2020 Active take 2 spray(s) nasal route in the morningfluticasone (Flonase) 50 MCG/ACT nasal spray Administer 2 sprays into each nostril in the morning. Activefluticasone propionate ([employer] Digihaler) 55 mcg/actuation aero powdr breath act w/sensor (12 sources)fluticasone propionate ([employer]on[employer] Digihaler) 55 mcg/actuation aero powdr breath act w/sensor Inhale 55 % once daily. Activefluticasone propionate ([employer]on[employer] Digihaler) 55 mcg/actuation aero powdr breath act w/sensor Inhale 55 % once daily. 0 Activefurosemide 20 mg oral tablet (20 sources)Loop DiureticStart: 10-07-2020 End: 51-39-9805vnhl 1 tablet by mouth once dailyfurosemide (Lasix) 20 MG tablet Indications: Primary hypertension Take 1 tablet (20 mg) by mouth Daily 90 tablet 1 04/12/2024 ActiveFurosemide 20 MG Oral Tablet Quantity: 0 Refills: 0 Ordered: 08-Jan-2021 DO Activeglimepiride 4 mg oral tablet (20 sources)SulfonylureaStart: 10-07-2020 End: 21-42-0093wbss 1 tablet by mouth before mealtimeglimepiride (Amaryl) 4 MG tablet Indications: Type 2 diabetes mellitus with stage 3a chronic kidney disease, without long-term current use of insulin (HCC) Take 1 tablet (4 mg) by mouth in the morning. Take before meals. 90 tablet 1 10/11/2024 Activetake 1 tablet by mouth twice dailyglimepiride (Amaryl) 4 mg tablet Take 1 tablet (4 mg) by mouth 2 times a day. ActiveGlimepiride 4 MG Oral Tablet Quantity: 0 Refills: 0 Ordered: 08-Jan-2021 DO ActivehydrALAZINE hydrochloride 25 mg oral tablet (2 sources)Arteriolar VasodilatorStart: 14-51-5250lkve 2 tablets by mouth at bedtimehydrALAZINE (APRESOLINE) 25 MG tablet Take 2 tablets by mouth in the morning and at bedtime 0 08/20/2023 Activeomeprazole 40 mg delayed release oral capsule (20 sources)Proton Pump InhibitorStart: 07-11-2024 End: 42-73-3254cvzjnerlkx (PriLOSEC) [address] capsule Indications: Gastroesophageal reflux disease without esophagitis TAKE 1 CAPSULE IN THE MORNING BEFORE A MEAL (DO NOT CRUSH OR CHEW) 90 capsule 3 07/11/2024 Active Start: 01-23-2021 End: 20-24-6093twlu 1 capsule by mouth twice dailyomeprazole (PriLOSEC) [address] capsule Take 1 capsule (40 mg) by mouth 2 times a day. 01/23/2021 ActiveStart: 30-92-5293noal 1 capsule by mouth once daily before breakfastomeprazole (PRILOSEC) 40 MG delayed release capsule Take 1 capsule by mouth every morning (before breakfast) 0 11/01/2020 ActiveOmeprazole 10 MG Oral Capsule Delayed Release Quantity: 0 Refills: 0 Ordered: 08-Jan-2021 DO Activepantoprazole 40 mg delayed release oral tablet (15 sources)Proton Pump InhibitorStart: 10-07-2023 End: 42-39-3655koum 1 tablet by mouth twice dailypantoprazole (ProtoNix) 40 mg EC tablet Indications: Primary malignant neuroendocrine neoplasm of duodenum (Multi) Take 1 tablet (40 mg) by mouth 2 times a day. Do not crush, chew, or split. 120 tablet 2 11/15/2023 Activerosuvastatin calcium 20 mg oral tablet (20 sources)HMG-CoA Reductase InhibitorStart: 04-12-2024 End: 98-13-9811apvy 1 tablet by mouth once dailyrosuvastatin (Crestor) 20 MG tablet Indications: Mixed hyperlipidemia Take 1 tablet (20 mg) by mouth Daily 04/12/2024 04/12/2025 ActiveStart: 12-10-2022 End: 04-20-1068jwtc 1 tablet by mouth in the morningrosuvastatin (Crestor) 10 MG tablet Indications: Mixed hyperlipidemia (CMS/HCC) Take 1 tablet (10 mg) by mouth in the morning. 90 tablet 3 12/10/2022 04/12/2024 Discontinued (Discontinued by another clinician)Start: 09-17-2020 End: 94-45-4497piwn 2 tablets by mouth once dailyrosuvastatin (CRESTOR) 10 MG tablet Take 2 tablets by mouth daily 09/17/2020 ActiveRosuvastatin Calcium 10 MG Oral Tablet Quantity: 0 Refills: 0 Ordered: 08-Jan-2021 DO Activesacubitril 24 mg / valsartan 26 mg oral tablet (6 sources)Angiotensin 2 Receptor BlockerStart: 49-67-5933xnuc 1 tablet by mouth twice dailySacubitril-Valsartan (Entresto) 24-26 mg tablet Active 1 TAB PO Twice daily March 29, 2025 12:00am Complies with drug therapytake 1 tablet by mouth in the morningsacubitril-valsartan (Entresto) 24-26 MG tablet Take 1 tablet by mouth in the morning and 1 tablet before bedtime. Activespironolactone 25 mg oral tablet (6 sources)Aldosterone AntagonistStart: 52-61-0543sonx 1 tablet by mouth once dailySpironolactone (Aldactone) 25 mg tablet Active 25 MG PO Daily March 25, 2025 12:00am Complies with drug therapytamsulosin hydrochloride 0.4 mg oral capsule (20 sources)alpha-Adrenergic BlockerStart: 72-19-8315ssdkqxhziw HCl (TAMSULOSIN ORAL) Take by mouth. Active Completed/Discontinued Medications MedicationDrug Class(es)DatesSig (Normalized)Sig (Original)5 ml bupivacaine hydrochloride 5 mg/ml injection (14 sources)Amide Local AnestheticStart: 03-29-2025 End: 82-71-1797xlebntaudls PF (Marcaine) 0.5 % injection 2 mLStart: 03-29-2025 End: mL, Injection, Once PRN Procedure, Starting on Thu03/29/25 at 0958, For 1 doseStart: 11-30-2024 End: 02-69-3096dqlhndbrwqh PF (Marcaine) 0.5 % injection 2 mLStart: 11-30-2024 End: mL, Injection, Once PRN Procedure, Starting on Thu11/30/24 at 1018, For 1 doseStart: 08-12-2024 End: 01-28-0949cgebgcjvzpn PF (Marcaine) 0.5 % injection 1 mLStart: 08-12-2024 End: mL, Injection, Once PRN Procedure, Starting on Thu08/12/24 at 0917, For 1 doseStart: 04-13-2024 End: 77-56-2184bzgdrkthfrb PF (Marcaine) 0.5 % injection 1 mLStart: 04-13-2024 End: mL, Injection, Once PRN Procedure, Starting on Thu04/13/24 at 0947, For 1 dose10 ml EPINEPHrine 0.1 mg/ml prefilled syringe (2 sources)alpha-Adrenergic Agonist, beta-Adrenergic Agonist, Catecholamine Start: 10-07-2023 End: 30-43-2379Xc needed, Starting on 4/24/24 at 0758, Intraprocedure Fluticasone Propionate CREA (13 sources)Fluticasone Propionate CREA Quantity: 0 Refills: 0 Ordered: 08-Jan-2021 DO Activegadobenate dimeglumine (MULTIHANCE) injection 16 mL (1 source)Start: 12-13-2024 End: 75-06-1401ooqb 1 dose intravenously once16 mL, IntraVENous, IMG ONCE PRN, 1 dose, Starting on Thu12/13/24 at 1326, Until Thu12/13/24 at 1015,Othergadobenate dimeglumine (MULTIHANCE) injection 16.1 mL (1 source)Start: 12-01-2023 End: 08-84-8668mkckohzshu dimeglumine (MULTIHANCE) injection 16.1 mLiohexol (OMNIPaque) 350 mg iodine/mL solution 50 mL (1 source)Start: 12-31-2023 End: mL, intravenous, Once in imaging, Starting on Thu12/31/23 at 0738, For 1 doseiohexol (OMNIPaque) 350 mg iodine/mL solution 75 mL (2 sources)Start: 05-26-2023 End: 93-10-5449zgnbzcv (OMNIPaque) 350 mg iodine/mL solution 75 mLlosartan potassium 100 mg oral tablet (20 sources)Angiotensin 2 Receptor BlockerStart: 09-17-2020 End: 69-74-8996qzon 1 tablet by mouth once dailyLosartan 100 mg tablet Discontinued 100 MG PO Daily February 14, 2025 1:29pm February 15, 2025 6:01pmLosartan Potassium 100 MG Oral Tablet Quantity: 0 Refills: 0 Ordered: 08-Jan-2021 DO Active1 ml methylPREDNISolone acetate 40 mg/ml injection (14 sources)CorticosteroidStart: 03-29-2025 End: 81-50-5701slrmazWLESVVSohwyv acetate (DEPO-Medrol) injection 40 mgStart: 03-29-2025 End: 02-92-735522 mg, Intra-articular, Once PRN Procedure, Starting on Thu03/29/25 at 0958, For 1 doseStart: 11-30-2024 End: 74-43-0099qpfffrUWTAMAYgdwso acetate (DEPO-Medrol) injection 40 mgStart: 11-30-2024 End: 06-21-905919 mg, Intra-articular, Once PRN Procedure, Starting on Thu11/30/24 at 1018, For 1 doseStart: 08-12-2024 End: 18-74-4391gvpqyfYVFJINVmxsmq Acetate (DEPO-Medrol) injection 40 mgStart: 08-12-2024 End: 28-23-350218 mg, Intra-articular, Once PRN Procedure, Starting on Thu08/12/24 at 0917, For 1 doseStart: 04-13-2024 End: 92-04-1667migefjLJMAKXDkaoto acetate (DEPO-Medrol) injection 40 mgStart: 04-13-2024 End: 75-51-209852 mg, Intra-articular, Once PRN Procedure, Starting on Thu04/13/24 at 0947, For 1 dosepioglitazone 30 mg oral tablet (20 sources)Peroxisome Proliferator Receptor alpha Agonist, Peroxisome Proliferator Receptor gamma Agonist, Thiazolidinedione End: 92-02-9664etmn 1 tablet by mouth once dailypioglitazone (Actos) 30 mg tablet Take 1 tablet (30 mg) by mouth once daily. 10/07/2023 Discontinued (Therapy completed)Pioglitazone HCl - 30 MG Oral Tablet Quantity: 0 Refills: 0 Ordered: 08-Jan-2021 DO Activesimethicone 66.7 mg/ml oral suspension (6 sources)Start: 06-30-2024 End: 84-06-3347Pq needed, Starting on Thu06/30/24 at 0954, IntraprocedureStart: 12-29-2023 End: 23-63-5208Sm needed, Starting on Thu12/29/23 at 1330, IntraprocedureStart: 06-10-2023 End: 48-29-9371lkgoxthgoys (Mylicon) dropssucralfate 1000 mg oral tablet (20 sources)Aluminum ComplexStart: 10-07-2023 End: 35-92-7122hkqy 1 tablet by mouth four times daily 1 hour(s) before bedtime sucralfate (Carafate) 1 gram tablet Indications: Primary malignant neuroendocrine neoplasm of duodenum (Multi) TAKE 1 TABLET (1 G) BY MOUTH 4 TIMES A DAY. TAKE 1 HOUR BEFORE MEALS AND AT BEDTIME 360 tablet 1 10/29/2023 06/30/2024 Discontinued (Therapy completed)Start: 17-36-5839hhzg 1 tablet by mouth four times daily at bedtimeSucralfate 1 GM Oral Tablet TAKE 1 TABLET 4 TIMES DAILY, BEFORE MEALS AND AT BEDTIME. Quantity: 360Refills: 2 Ordered: 01-May-2021 Irwin Batista MD Start : 23-Jan-2021 Active Problems Active Problems Problem ClassificationProblemDateDocumented DateEpisodic/ChronicBiliary tract disease (3 sources)Acute cholecystitis; Translations: [ACUTE CHOLECYSTITIS]Onset: 77-54-8916QjhzrpzuKgsjqe of other GI organs; peritoneum (1 source)Malignant carcinoid tumor of the duodenum; 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]Onset: 66-23-3712QbjifcvIudgjcr dysrhythmias (20 sources)Nonsustained ventricular tachycardia ; Translations: [NSVT (nonsustained ventricular tachycardia)]Onset: 377678-19-1716XbqtzxaGgclets dysrhythmias (20 sources)Bradycardia; Translations: [Bradycardia, unspecified]Onset: 497777-42-0073RvfytwufDqsepil kidney disease (20 sources)Chronic kidney disease stage 3A ; Translations: [Stage 3a chronic kidney disease (HCC)]Onset: 063633-84-7598YhsvxjrWswmjkaxop associated with dizziness or vertigo (2 sources)Dizziness; Translations: [Dizziness]Onset: 37-92-9028Cexgfyfu Congestive heart failure; nonhypertensive (2 sources)Chronic systolic heart failure; Translations: [Chronic systolic (congestive) heart failure]98-95-3280GttskkkJperhcjm mellitus with complications (20 sources)Polyneuropathy due to type 2 diabetes mellitus; Translations: [Type 2 diabetes mellitus with diabetic polyneuropathy]Onset: 06-24-2021 Resolved: 979404-38-2484NkyxqfbHlrwoqob of white blood cells (20 sources)Leukemoid reaction; Translations: [Leukemoid reaction]Onset: 345206-80-1988JjuezeyPsorhehxo of lipid metabolism (20 sources)Hyperlipidemia, unspecified; Translations: [Mixed hyperlipidemia] Onset: 262069-33-2293JbqyupyCqwygbdzymepvo and diverticulitis (20 sources)Diverticulosis of large intestine without perforation or abscess without bleeding; Translations: [Diverticulosis of sigmoid colon]Onset: 786973-37-3654QdksoypHkcadxholg disorders (20 sources)Gastro-esophageal reflux disease without esophagitis; Translations: [Gastroesophageal reflux disease]Onset: 551184-58-4327DeturrdPqjxoutre hypertension (20 sources)Essential (primary) hypertension; Translations: [Essential hypertension]Onset: 12-12-2020 Resolved: 970103-52-6014OpnhecjFyhbmwhwu and duodenitis (1 source)Unspecified chronic gastritis without bleeding; Translations: [Unspecified chronic gastritis without bleeding]Onset: 14-30-1288JfmlxzsDbgq and other crystal arthropathies (20 sources)Gout; Translations: [Gout, unspecified]Onset: ChronicHyperplasia of prostate (20 sources)Benign prostatic hypertrophy with outflow obstruction; Translations: [Hypertrophy (benign) of prostate with urinary obstruction and other lower urinary tract symptoms (LUTS)]Onset: 210527-42-0075PzddxesFuzxlbsip neoplasm without specification of site (20 sources)Primary malignant neuroendocrine neoplasm of duodenum; 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]Onset: 86-17-0377Dphwhax Osteoarthritis (20 sources)Arthritis; Translations: [Unspecified osteoarthritis, unspecified site]97-72-9235MaejrpjHrixn aftercare (1 source)Other [place] [facility] (current) drug therapy; Translations: [OTH [facility] HOME CURRENT DRUG THERAPY]Onset: 88-32-2633HvthbtrxTopvk and unspecified benign neoplasm (1 source)Benign carcinoid tumor of the duodenum; Translations: [Benign carcinoid tumor of the duodenum]Onset: 78-27-5483OyigxkseTfjlu and unspecified benign neoplasm (5 sources)Adenoma of left adrenal gland; Translations: [Benign neoplasm of left adrenal gland]12-04-7611RluxtsmdNoxds and unspecified benign neoplasm (1 source)Benign neoplasm of left adrenal gland; Translations: [Benign neoplasm of left adrenal gland]Onset: 64-57-9843MzbdjvkfGaxbx and unspecified benign neoplasm (2 sources)Adrenal adenoma; Translations: [Benign neoplasm of unspecified adrenal gland]27-97-8507VfwiadovQemuw connective tissue disease (2 sources)Disorder of musculoskeletal system; Translations: [Other specified disorders of synovium, left ankle and foot]01-11-0896GevvuheaEtuhb diseases of kidney and ureters (1 source)Cyst of kidney, acquired; Translations: [Cyst of kidney, acquired] Onset: 64-26-0810ZkxyniogKuhii disorders of stomach and duodenum (1 source)Other diseases of stomach and duodenum; Translations: [Other diseases of stomach and duodenum]Onset: 98-05-8152DclsfuyjAoszd endocrine disorders (20 sources)Hypoglycemia; Translations: [Hypoglycemia, unspecified]Onset: 555246-96-5566FbpxisvAhmqn endocrine disorders (20 sources)Mass of left adrenal gland; Translations: [Other specified disorders of adrenal gland]Onset: 640796-42-7040KoetqpsAzjcz inflammatory condition of skin (20 sources)Pityriasis rosea; Translations: [Pityriasis rosea]Onset: 02-24-2023 98-56-3574LqangggDdzpz liver diseases (2 sources)Liver disease, unspecified; Translations: [Liver disease, unspecified]Onset: 99-79-7929BgxtdlmSrbwg liver diseases (1 source)Abnormal levels of other serum enzymes; Translations: [ABNORMAL LEVELS OTHER SERUM ENZYMES]Onset: 48-68-7512TlalbqziEyruu nervous system disorders (20 sources)Chronic pain; Translations: [Other chronic pain]Onset: 02-24-2023 79-33-2383NaupprzXupgd non-traumatic joint disorders (7 sources)Pain in left shoulder; Translations: [Pain in joint, shoulder region] 13-78-8866NlzozfdhEertz non-traumatic joint disorders (17 sources)Swollen ankle region; Translations: [Effusion, left ankle]Onset: 247589-27-6338DeyvappiMzkdw nutritional; endocrine; and metabolic disorders (20 sources)Body mass index 30+ - obesity; Translations: [Obesity, unspecified] Onset: 956113-81-1545HxycaonIxepu nutritional; endocrine; and metabolic disorders (20 sources)Obesity; Translations: [Class 1 obesity with serious comorbidity in adult]Onset: 513358-75-1777ChlokipHkyze nutritional; endocrine; and metabolic disorders (6 sources)Obesity caused by energy imbalance; Translations: [Class 1 obesity due to excess calories with serious comorbidity in adult, unspecified BMI] 04-30-2092SayrwqfNjxgt screening for suspected conditions (not mental disorders or infectious disease) (20 sources)Patient encounter status; Translations: [Screening for malignant neoplasms of prostate]Onset: 06-12-2021 Resolved: 818411-66-9698EvvorhokGdwte upper respiratory disease (20 sources)Allergic rhinitis; Translations: [Allergic rhinitis, unspecified] Onset: 214386-72-0522OqotzkjMdujy upper respiratory infections (20 sources)Chronic sinusitis; Translations: [Chronic sinusitis, unspecified] Onset: 766015-62-5979NdssvrlBmnterlv codes; unclassified (20 sources)Hypersomnia; Translations: [Hypersomnia, unspecified]Onset: 774282-49-7637SgjskleBkcbaylb codes; unclassified (1 source)Personal history of other specified conditions; Translations: [PERSONAL HISTORY OTH SPEC CONDITION]Onset: 13-87-6933YajuimnwChiwabix codes; unclassified (2 sources)Edema; Translations: [Edema, unspecified]54-37-3562OjsfgrukMtmoivfyef arthritis and related disease (1 source)Rheumatoid arthritis, unspecified; Translations: [Rheumatoid arthritis, unspecified]Onset: 33-86-3635GpupadjWhrfekihmo (except in labor) (1 source)Other Gram-negative sepsis; Translations: [OTHER GRAM-NEGATIVE SEPSIS] Onset: 84-80-8352YfqexpwrCrtaloxmupig (1 source)CONTACT W/AND (SUSP) EXPOS COVID-19; Translations: [CONTACT W/AND (SUSP) EXPOS COVID-19]Onset: 91-94-2516Adrlvrejdzri (1 source)Gastric intestinal metaplasia, unspecified; Translations: [Gastric intestinal metaplasia, unspecified]Onset: 40-83-6493Glcenzzhjcsz (2 sources)Chronic pain of right jhlq48-20-9810Jlkkvbnoftug (2 sources)M25.472 - Effusion, left ankleUnclassified (2 sources)Arthritis of left hxsbehlw00-55-1142Fzxfjwvmjpsg (2 sources)NSVTOnset: 10-95-8867Ruospontmeic (1 source)Other ventricular tachycardia; Translations: [Other ventricular tachycardia]Onset: 07-13-2023 Past or Other Problems Problem ClassificationProblemDateDocumented DateEpisodic/ChronicAbdominal pain (20 sources)Right upper quadrant pain; Translations: [Unspecified abdominal pain]Onset: 50-20-3859WzoobzosPyxoudootaiioz/social admission (20 sources)First encounter by subject; Translations: [Persons encountering health services in other specified circumstances]Onset: 07-15-2023 Resolved: 750055-97-7000NzuponohFaprxa; other and unspecified primary (1 source)Personal history of malignant carcinoid tumor of small intestine; Translations: [Personal history of malignant carcinoid tumor of sm int]Onset: 74-87-5172MvpebbwaXqqgrgwokd and other anemia (1 source)Anemia, unspecified; Translations: [Anemia, unspecified]Onset: 77-77-3190LumgfaqdBskoktyqol and other anemia (20 sources)Anemia; Translations: [Anemia, unspecified]Onset: 02-24-2023 21-18-2401GczhsnzrTnhaosph mellitus without complication (14 sources)Type 2 diabetes mellitus without complications; Translations: [Type 2 diabetes mellitus]Onset: 12-12-2020 Resolved: 460355-86-9915HeydtvoV Codes: Fall (20 sources)Fall; Translations: [Unspecified fall, initial encounter]Onset: 807272-76-7790CshqswhmGhwodomrspvlcbem hemorrhage (1 source)Hemorrhage of anus and rectum; Translations: [HEMORRHAGE OF ANUS AND RECTUM]Onset: 23-07-8967UxedtiywMxlt disorders (9 sources)Mood disordersOnset: Other aftercare (2 sources)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; Translations: [GROUP HOME USE ORAL HYPOGLYCEMIC DX]Onset: 66-12-3069NaewfvvuBkley aftercare (2 sources)Encounter for follow-up examination after completed treatment for malignant neoplasm; Translations:[Encntr for follow-up exam after trtmt for malignant neoplasm]Onset: 16-61-1693WdnmijgkPtxqy and unspecified benign neoplasm (1 source)Benign neoplasm of ascending colon; Translations: [BENIGN NEOPLASM OF ASCENDING COLON]Onset: 41-81-4593FuftpvchDsidy and unspecified benign neoplasm (1 source)Polyp of colon; Translations: [POLYP OF COLON]Onset: 12-12-2020 EpisodicOther and unspecified benign neoplasm (1 source)Polyp of stomach and duodenum; Translations: [Polyp of stomach and duodenum]Onset: 12-47-5549AsyauwpzFcvdb and unspecified benign neoplasm (20 sources)Tubular adenoma of colon; Translations: [Benign neoplasm of colon, unspecified]Onset: 992783-99-5999EnayxbgdLxnha connective tissue disease (20 sources)Rotator cuff arthropathy of left shoulder; Translations: [Unspecified rotator cuff tear or rupture of left shoulder, not specified as traumatic]Onset: 079602-09-1804HmuprppeDiisw diseases of kidney and ureters (20 sources)Cyst of kidney; Translations: [Cyst of kidney, acquired]Onset: 593203-48-0465BbdjbianXfszu gastrointestinal disorders (4 sources)Dysphagia, unspecified; Translations: [DYSPHAGIA UNSPECIFIED]Onset: 23-65-7692FkpqbqwvQipuj gastrointestinal disorders (20 sources)Esophageal dysphagia; Translations: [Other dysphagia]Onset: 477149-76-7827DlqqrybrZzrqy gastrointestinal disorders (20 sources)Slow transit constipation; Translations: [Slow transit constipation] Onset: 457574-96-9744YivfywtkKryzr lower respiratory disease (20 sources)Nodule of lung; Translations: [Solitary pulmonary nodule]Onset: 981157-90-9315DlacmjzeExlrp nervous system disorders (20 sources)Impairment of balance; Translations: [Other abnormalities of gait and mobility]Onset: 727442-25-2881FufnynfvHhylh non-traumatic joint disorders (20 sources)Pain in right knee; Translations: [Pain in joint, lower leg]Onset: 446836-00-0997LciespecGbkxw nutritional; endocrine; and metabolic disorders (20 sources)Morbid obesity; Translations: [Morbid (severe) obesity due to excess calories]Onset: 11-24-2022 Resolved: 791800-17-2700AhqtfygBkhel upper respiratory infections (20 sources)Acute upper respiratory infection; Translations: [Acute upper respiratory infection, unspecified]Onset: 11-16-2023 Resolved: 112872-83-1105XceedyucXvwacbujg (except that caused by tuberculosis or sexually transmitted disease) (20 sources)Left lower zone pneumonia; Translations: [Pneumonia, unspecified organism]Onset: 10-12-2023 Resolved: 512763-09-9875JpsiywviQvtdkwqgq and history of mental health and substance abuse codes (20 sources)Personal history of nicotine dependence; Translations: [Tobacco use and exposure - finding]Onset: 218679-93-9760WstofnteGjowrfo (20 sources)Near syncope; Translations: [Syncope and collapse]Onset: 07-10-2023 88-66-6240SigbzzdcJfzckkjdfpsu (8 sources)Onset: 866204-76-7284Cfrjrzbfbswn (1 source)Other ventricular tachycardia; Translations: [Other ventricular tachycardia]Onset: 03-21-2025 Results Test NameValueInterpretationReference RangeFacilityXR Ankle - left 3 Viewson 82-88-5664Grvrnnm Result: Notable talar tilt with degenerative changes to the tibiotalar joint with sclerosisNOSac[facility] HealthcareRadiology Study observation (narrative) [facility] Informationon 99-03-0030Damkpyo J Meyer, PA 03/29/2025 10:05 AM L Inj/Asp: L glenohumeral [...] neurovascular intact s/p injection. . ( Codes 96802) Procedure, treatment alternatives, risks and benefits explained, specific risks discussed. Consent was given by the patient. Patient was prepped and draped in the usual sterile fashion. [facility]37on *[facility] 03-28-2025 Follow-[id number] Yusef Car 1950 M Date Provider Department Center 03/28/2025 Ko-ROSENDO SANCHEZ [facility] Family History Problem Relation Age of Onset Angina Mother Cancer Mother Heart attack Mother Heart failure Mother Hypertension Mother Cancer Father Diabetes type II Father Hypertension Father Cancer Sister Diabetes type II Sister Cancer Brother Diabetes type II Brother Hypertension Brother Cancer Brother Diabetes type II Brother Family Status - Relation Status Age at Mother Father Sister Brother Brother Level of Service:47416 SD OFFICE/OUTPATIENT ESTABLISHED HIGH MDM 40 MIN Reason for Visit and Comments: Follow-up [274603] - Patient is here today for a follow up appointment [facility] for chest pressure and fluid around his heart. Patient is currently wearing a 30 day monitor.Patient would like to know if its ok to return to taking his Allopurinol in the pm. NSVT [Other] Frequent PVCs [Other] Hyperlipidemia [182] Hypertension [942528] Bradycardia [843966] Atrial tachycardia [Other] CKDA [Other] Dizziness [571236] - Dizziness/lightheaded with standingNormalUniversHighland District Hospital30on 12-81-556921Roh patient is Moderately Stable - Low risk [...] monitored and maintained or improved Outcome: Progressing .NormalUnMemorial Health System Selby General HospitalBASIC METABOLIC PANELon 03-22-2025 Anion gap [Moles/Vol]11 mmol/LNormal7-20UnMemorial Health System [facility] Hospital Comment on above:Performed By: #### [id number] #### [facility] ([facility]) [address] [place], [place] [address]Nuprguj [Mass/Vol]9.1 mg/dLNormal8.6-10.3UnMemorial Health System Selby General HospitalComment on above:Performed By: #### [id number] #### [facility] ([facility]) [address] [place], [place] [address]Ocoxcwst [Moles/Vol]106 mmol/IRghepe14-199QjtumcdqtxMemorial Health System Selby General HospitalComment on above:Performed By: #### [id number] #### [facility] ([facility]) [address] [place], [place] [address]BP9 [Moles/Vol]23 mmol/SHtlttp22-39AuaduekyjrMemorial Health System Selby General HospitalComment on above:Performed By: #### [id number] #### [facility] ([facility]) [address] [place], [place] [address]Jyryejrxfo [Mass/Vol]1.34 mg/dLHigh0.70-1.30UnMemorial Health System Selby General HospitalComment on above:Performed By: #### [id number] #### [facility] ([facility]) [address] [place] [address]YRQGBHEJIJ FILTRATION RATE ML/MIN/1.73 SQ M.EETEUUTHR48.2 mL/min/1.73m*2Low>60.0UnMemorial Health System Selby General HospitalComment on above:Result Comment: The [facility]???s estimated glomerular filtration rate (eGFR) will no [...] potential consequences that do not disproportionately affect anyone group of individuals.Performed By: #### [id number] #### [facility] ([facility]) [address] [place] [address]Vzzlwez [Mass/Vol]113 mg/gAGoro67-498FzyubmpyhuMemorial Health System Selby General HospitalComment on above:Performed By: #### [id number] #### [facility] ([facility]) [address] [place] [address]Halpzrzrt [Moles/Vol]4.2 mmol/LNormal3.5-5.1UnMemorial Health System Selby General HospitalComment on above:Performed By: #### [id number] #### [facility] ([facility]) [address] [place] [address]Mjlsjh [Moles/Vol]136 mmol/TJvmajq119-919RikjjytjccMemorial Health System Selby General HospitalComment on above:Performed By: #### [id number] #### [facility] ([facility]) [address] [place] [address]Pdve nitrogen [Mass/Vol]30 mg/dLHigh7-25UnMemorial Health System Selby General HospitalComment on above:Performed By: #### [id number] #### [facility] ([facility]) [address] [place], [place] [address]TOVS NITROGEN/CREATININE (MASS RATIO) IN SER/PLAS22.4Normal [facility] SystemComment on above:Performed By: #### [id number] #### [facility] ([facility]) [address] [place], [place] [address]FKZmw 85-46-7625Biiitircqxl distribution width (RBC) [Ratio]15.9 %High11.5-15.0UnMemorial Health System Selby General HospitalComment on above:Performed By: #### [id number] #### [facility] ([facility]) [address] [facility] [place], [place] [address]GIUXYGLXXDL MEAN CORPUSCULAR HEMOGLOBIN CONCENTRATION (G/DL) BY IDGRAUXBR49.5 g/xOAejcpn70.0-35.0UnMemorial Health System Selby General HospitalComment on above:Performed By: #### [id number] #### [facility] ([facility]) [address] [place], [place] [address]Kjljlnlzsn (Bld) [Volume fraction]42.8 %Hooajl37.0-50.0 [facility] SystemComment on above:Performed By: #### [id number] #### [facility] ([facility]) [address] [place], [place] [address]Zzowxlrwdk (Bld) [Mass/Vol]13.9 g/dLCwliqn44.0-17.0UnMemorial Health System Selby General HospitalComment on above:Performed By: #### [id number] #### [facility] ([facility]) [address] [place], [place] [address]XCH (RBC) [Entitic mass]28.7 orWkgzlo58.0-33.0UnMemorial Health System Selby General HospitalComment on above:Performed By: #### [id number] #### [facility] ([facility]) [address] [place], [place] [address]VVR (RBC) [Entitic vol]88.2 xAOtujgw75.0-98.0UnMemorial Health System Selby General HospitalComment on above:Performed By: #### [id number] #### [facility] ([facility]) [address] [place], [place] [address]PPVNPCYGF (10*3/UL) IN BLOOD AUTOMATED QHNBM432 10*3/uLNormal 150-400UnMemorial Health System Selby General HospitalComment on above:Performed By: #### [id number] #### [facility] ([facility]) [address] [place] [address]HYX (Bld) [#/Vol]4.85 10*6/uLNormal4.20-5.70UnMemorial Health System Selby General HospitalComment on above:Performed By: #### [id number] #### [facility] ([facility]) [address] [place] [address]MAR (Bld) [#/Vol]9.48 10*3/uLNormal4.00-10.60UnMemorial Health System Sel[facility] General HospitalComment on above:Performed By: #### [id number] #### [facility] ([facility]) [address] [place] [address]HNPRF PANELon 10-86-4409DBHB/HDL4.6 mg/dLNormalUniBrecksville VA / Crille HospitalComment on above:Performed By: #### [id number] #### [facility] ([facility]) [address] [place] [address]Kwjdsneyyki [Mass/Vol]96 mg/gXIkq743-910HobjeawgnwMemorial Health System Selby General HospitalComment on above:Performed By: #### [id number] #### [facility] ([facility]) [address] [place] [address]Qwmmsxous [Mass/Vol]164 mg/dLHigh<150UnMemorial Health System Selby General HospitalComment on above:Result Comment: TRIGLYCERIDE REFERENCE RANGE: 20 YEARS AND OLDER CARDIOVASCULAR RISK LESS THAN 150 mg/dL LOW RISK 150 TO 199 mg/dL BORDERLINE RISK 200 mg/dL AND GREATER HIGH RISKPerformed By: #### [id number] #### [facility] ([facility]) [address] [place] [address]Ncdretnpf [Mass/Vol]42 mg/dLNormal0-160UnMemorial Health System Selby General HospitalComment on above:Performed By: #### [id number] #### [facility] [address] [place] [address]Ttwwvfqyv [Mass/Vol]21 mg/nRTpj38-24YkrxbseqpgMemorial Health System Selby General HospitalComment on above:Performed By: #### [id number] #### [facility] ([facility]) [address] [place], [place] [address]XOK HDL CHOL. (LDL+VLDL)75NormalUniversHighland District HospitalComment on above:Performed By: #### [id number] #### [facility] ([facility]) [address] [place], [place] [address]CARCK VLDL-C33 mg/dLNormal0-40UnMemorial Health System [facility]by General HospitalComment on above:Performed By: #### [id number] #### [facility] ([facility]) [address] [place] [address]ZHLLCCFFKqk 01-48-5891Sibrhwimv [Mass/Vol]2.0 mg/dLNormal1.9-2.7 [facility] SystemComment on above:Performed By: #### [id number] #### [facility] ([facility]) [address] [place], [place] [address]PVWYXKQDOQvc 47-70-1454Fxejbnlbg [Mass/Vol]3.7 mg/dLNormal 2.5-5.0UnMemorial Health System Selby General HospitalComment on above:Performed By: #### [id number] #### [facility] ([facility]) [address] [facility] [place], [place] [address]MYPB GLUCOSE METER UNSOLICITED RESULTSon 94-73-9314Knygcul [Mass/Vol]153 mg/nLIjok42-539IlahpnfgesMemorial Health System Selby General HospitalComment on above:Order Comment: Waived Testing in the ED is performed under the ED CLIA certificate #[id number].Result Comment: jarizmePerformed By: #### [id number] #### [facility] ([facility]) [address] [place], [place] [address]Fszejbs [Mass/Vol]133 mg/lRQxwz60-079GisrkmggnfMemorial Health System Selby General HospitalComment on above:Order Comment: Waived Testing in the ED is performed under the ED CLIA certificate #[id number].Result Comment: jarizme Performed By: #### [id number] #### [facility] ([facility]) [address] [place], [place] [address]no 56-46-760[address]Rix patient is Moderately Stable - Low risk of patient condition declining or worsening The patient's goals for the shift include comfort and sleep The clinical goals for the shift include stable vitals; safety; comfort Over the shift, the patient continued to make progress toward the following goals.NormalUnMemorial Health System Selby General Hospital30The patient is Moderately Stable - Low risk [...] Adult Goal: Skin integrity remains intact Outcome: ProgressingNormalUniversshelby memorial hospital [facility]30The patient is Moderately Stable - Low risk of patient condition declining or worsening The patient's goals for the shift include comfort The clinical goals for the shift include stable vitals Over the shift, the patient continued to make progress toward the following goals.NormalUnMemorial Health System Selby General HospitalANTI-XA (HEPARIN LEVEL)on 02-78-3950IKDUGHY UNFRACTIONATED (U/ML) IN PPP BY CHROMOGENIC METHOD0.45 IU/mL Normal0.3-0.7UnMemorial Health System Selby General HospitalComment on above:Order Comment: Check anti-Xa level every 6 hours while on heparin infusion, or per protocol. Result Comment: Rivaroxaban and Apixaban will interfere with the anti Xa assay used to monitor UFH and LMWH.Performed By: #### [id number] #### [facility] ([facility]) [address] [place], [place] [address]UZQCkd 35-47-8966MTODEBFEQ PARTIAL THROMBOPLASTIN TIME IN PPP BY COAGULATION ASSAY32.4 MfpkwuvWntlef15.0-35.0UnMemorial [facility] Comment on above:Order Comment: Baseline aPTT before initiating heparin infusion.Result Comment: Clinical significance of the APTT is questionable in the presence of heparin.Performed By: #### [id number] #### [facility] ([facility]) [address] [place], [place] [address]V-IWJF NATRIURETIC PEPTIDEon 64-98-0551Nggyhgorgkp peptide B (Bld) [Mass/Vol]460 pg/mLHigh0-100UnMemorial Health System [facility]by General HospitalComment on above:Performed By: #### [id number] #### [facility] ([facility]) [address] [place], [place] [address]BPILG METABOLIC PANELon 15-82-8360Usubl gap [Moles/Vol]15 mmol/L Normal7-20UnMemorial Health System Selby General HospitalComment on above:Performed By: #### [id number] #### [facility] ([facility]) [address] [place], [place] [address]Gxoumjp [Mass/Vol]9.1 mg/dLNormal8.6-10.3UnMemorial Health System Selby General HospitalComment on above:Performed By: #### [id number] #### [facility] ([facility]) [address] [place], [place] [address]Jkixmxtb [Moles/Vol]105 mmol/YGojcve35-325PpmzfcyjfkMemorial Health System Selby General HospitalComment on above:Performed By: #### [id number] #### [facility] ([facility]) [address] [place], [place] [address]AW0 [Moles/Vol]21 mmol/LSrshrs39-04XjurxqhafxMemorial Health System Selby General HospitalComment on above:Performed By: #### [id number] #### [facility] ([facility]) [address] [place], [place] [address]Srpkcfwgfx [Mass/Vol]1.23 mg/dLNormal0.70-1.30UnMemorial Health System Selby General HospitalComment on above:Performed By: #### [id number] #### [facility] ([facility]) [address] [place] [address]VRHZNMRLIP FILTRATION RATE ML/MIN/1.73 SQ M.GXIZVJJRV35.2 mL/min/1.73m*2Normal>60.0UnMemorial Health System Selby General HospitalComment on above: Result Comment: The [facility]???s estimated glomerular filtration rate (eGFR) will no [...] potential consequences that do not disproportionately affect anyone group of individuals.Performed By: #### [id number] #### [facility] ([facility]) [address] [place] [address]Sqqhxkr [Mass/Vol]112 mg/uLVwra95-491VhshlycvazMemorial Health System Selby General HospitalComment on above:Performed By: #### [id number] #### [facility] ([facility]) [address] [place] [address]Wizljqcdp [Moles/Vol]4.0 mmol/LNormal3.5-5.1UnMemorial Health System Selby General HospitalComment on above:Performed By: #### [id number] #### [facility] ([facility]) [address] [place] [address]Ijdxfq [Moles/Vol]137 mmol/CAzwcxw050-108VkmthkquzvMemorial Health System Selby General HospitalComment on above:Performed By: #### [id number] #### [facility] ([facility]) [address] [place] [address]Dudw nitrogen [Mass/Vol]31 mg/dLHigh7-25UnMemorial Health System Selby General HospitalComment on above:Performed By: #### [id number] #### [facility] ([facility]) [address] [place] [address]GBHA NITROGEN/CREATININE (MASS RATIO) IN SER/PLAS25.2Normal [facility] SystemComment on above:Performed By: #### [id number] #### [facility] ([facility]) [address] [place] [address]NPUah 44-42-2437Hgjjgtrkuau distribution width (RBC) [Ratio]15.8 %High11.5-15.0UnMemorial Health System Selby General HospitalComment on above:Performed By: #### [id number] #### [facility] ([facility]) [address] [place] [address]VIYAXBEDHMD MEAN CORPUSCULAR HEMOGLOBIN CONCENTRATION (G/DL) BY AWITVLCCL55.0 g/qOGhuvcp74.0-35.0UnMemorial Health System Selby General HospitalComment on above:Performed By: #### [id number] #### [facility] ([facility]) [address] [place] [address]Fwusbfsabr (Bld) [Volume fraction]45.0 %Kptdlq77.0-50.0 [facility] SystemComment on above:Performed By: #### [id number] #### [facility] ([facility]) [address] [place] [address]Vngflfsxhx (Bld) [Mass/Vol]14.4 g/jTCprjgl64.0-17.0UnMemorial Health System Selby General HospitalComment on above:Performed By: #### [id number] #### [facility] ([facility]) [address] [place] [address]UML (RBC) [Entitic mass]28.7 dwElczkj49.0-33.0UnMemorial Health System Selby General HospitalComment on above:Performed By: #### [id number] #### [facility] ([facility]) [address] [place] [address]TPR (RBC) [Entitic vol]89.6 zJFdlopi68.0-98.0UnMemorial Health System Selby General HospitalComment on above:Performed By: #### [id number] #### [facility] ([facility]) [address] [place] [address]SDDZCDOZQ (10*3/UL) IN BLOOD AUTOMATED [id number] 10*3/uLNormal 150-400UnMemorial Health System Selby General HospitalComment on above:Performed By: #### [id number] #### [facility] ([facility]) [address] [place], [place] [address]KQX (Bld) [#/Vol]5.02 10*6/uLNormal4.20-5.70UnMemorial Health System Selby General HospitalComment on above:Performed By: #### [id number] #### [facility] ([facility]) [address] [place], [place] [address]QJZ (Bld) [#/Vol]9.59 10*3/uLNormal4.00-10.60UnMemorial Health System Selby General HospitalComment on above:Performed By: #### [id number] #### [facility] ([facility]) [address] [place], [place] [address]DHH WITH AUTO DIFFERENTIALon 09-61-3445Hjelxapgj (Bld) [#/Vol] 0.04 10*3/uLNormal0.00-0.20UnMemorial Health System Selby General HospitalComment on above: Performed By: #### [id number] #### [facility] ([facility]) [address] [place], [place] [address]Wxsyrbipn/100 WBC (Bld)0.4 %Normal0.0-1.0UnMemorial Health System Selby General HospitalComment on above:Performed By: #### [id number] #### [facility] ([facility]) [address] [place], [place] [address]Osvrantvkzs (Bld) [#/Vol]0.12 10*3/uLNormal0.00-0.50UnMemorial Health System Selby General HospitalComment on above:Performed By: #### [id number] #### [facility] ([facility]) [address] [place], [place] [address]Ckckbbzapyu/100 WBC (Bld)1.1 %Normal0.0-6.0UnMemorial Health System Selby General HospitalComment on above:Performed By: #### [id number] #### [facility] ([facility]) [address] [place] [address]Kbmniedxsqp distribution width (RBC) [Ratio]15.9 %High11.5-15.0 [facility] SystemComment on above:Performed By: #### [id number] #### [facility] ([facility]) [address] [place] [address]DOTTKHVUZEV MEAN CORPUSCULAR HEMOGLOBIN CONCENTRATION (G/DL) BY IUMNRYJJJ66.5 g/hJNfynfd77.0-35.0UnMemorial Health System Selby General HospitalComment on above:Performed By: #### [id number] #### [facility] ([facility]) [address] [place] [address]Ptqnjyyaoo (Bld) [Volume fraction]45.8 %Kbmwbt76.0-50.0 [facility] SystemComment on above:Performed By: #### [id number] #### [facility] ([facility]) [address] [place] [place] [address]Cnbjrjyocr (Bld) [Mass/Vol]14.9 g/hAFymxot26.0-17.0UnMemorial Health System Selby General HospitalComment on above:Performed By: #### [id number] #### [facility] ([facility]) [address] [place] [address]Vfykpekr granulocytes (Bld) [#/Vol]0.04 10*3/uLNormal0.00-0.20 [facility] SystemComment on above:Performed By: #### [id number] #### [facility] ([facility]) [address] [place] [address]Oegjyrag granulocytes/100 WBC (Bld)0.4 %Normal0.0-1.0UnMemorial Health System Selby General HospitalComment on above:Performed By: #### [id number] #### [facility] ([facility]) [address] [place] [address]Upnisbpzzpr (Bld) [#/Vol]1.85 10*3/uLNormal1.20-4.00UnMemorial Health System Selby General HospitalComment on above:Performed By: #### [id number] #### [facility] ([facility]) [address] [place] [address]Quqvrfgicwi/100 WBC (Bld)16.7 %Low20.0-45.0UnMemorial Health System Selby General HospitalComment on above:Performed By: #### [id number] #### [facility] ([facility]) [address] [place] [place], [place] [address]MTX (RBC) [Entitic mass]28.7 hjXfkzau54.0-33.0UnMemorial Health System Selby General HospitalComment on above:Performed By: #### [id number] #### [facility] ([facility]) [address] [place] [place], [place] [address]ZMP (RBC) [Entitic vol]88.1 tQNlutkn29.0-98.0UnMemorial Health System Selby General HospitalComment on above:Performed By: #### [id number] #### [facility] ([facility]) [address] [facility] [place], [place] [address]Safshhpeu (Bld) [#/Vol]0.95 10*3/uLNormal0.10-1.00UnMemorial Health System Selby General HospitalComment on above:Performed By: #### [id number] #### [facility] ([facility]) [address] [facility] [place], [place] [address]Ajzemvmht/100 WBC (Bld)8.6 %Normal5.0-12.0UnMemorial Health System Selby General HospitalComment on above:Performed By: #### [id number] #### [facility] ([facility]) [address] [facility], [place] [address]Nuqtxryvyjz (Bld) [#/Vol]8.08 10*3/uLHigh1.60-7.60UnMemorial Health System Sel[facility] General HospitalComment on above:Performed By: #### [id number] #### [facility] ([facility]) [address] [place] [place], [place] [address]Ippugkrnwyx/100 WBC (Bld)72.8 %High40.0-72.0UnMemorial Health System Selby General HospitalComment on above:Performed By: #### [id number] #### [facility] ([facility]) [address] [place] [address]UBGL (PER 100 WBCS) BY AUTOMATED COUNT0.0 %Oeihai1EfwritzycfMemorial Health System Selby General HospitalComment on above:Performed By: #### [id number] #### [facility] ([facility]) [address] [place] [address]QDLOWSEYM (10*3/UL) IN BLOOD AUTOMATED [id number] 10*3/uLHigh 150-400UnMemorial Health System Sel[facility] General HospitalComment on above:Performed By: #### [id number] #### [facility] ([facility]) [address] [place] [address]GIG (Bld) [#/Vol]5.20 10*6/uLNormal4.20-5.70UnMemorial Health System Sel[facility] General HospitalComment on above:Performed By: #### [id number] #### [facility] ([facility]) [address] [place] [address]EJY (Bld) [#/Vol]11.08 10*3/uLHigh4.00-10.60UnMemorial [facility] System [facility] General HospitalComment on above:Performed By: #### [id number] #### [facility] ([facility]) [address] [place] [address]VIQAPBJDUARTN METABOLIC PANELon 11-83-5749Kredglw [Mass/Vol]4.3 g/dLNormal3.5-5.7UnMemorial Health System Selby General HospitalComment on above:Performed By: #### [id number] #### [facility] ([facility]) [address] [place] [address]GAK [Catalytic activity/Vol]101 U/KKtzary60-456BrmvhrkwagMemorial Health System Selby General HospitalComment on above:Performed By: #### [id number] #### [facility] ([facility]) [address] [place] [address]YNP [Catalytic activity/Vol]9 U/LNormal7-52UnMemorial Health System Selby General HospitalComment on above:Performed By: #### [id number] #### [facility] ([facility]) [address] [place], [place] [address]Jsuqu gap [Moles/Vol]12 mmol/LNormal7-20UnMemorial Health System Sel[facility] General HospitalComment on above:Performed By: #### [id number] #### [facility] ([facility]) [address] [place], [place] [address]CPW [Catalytic activity/Vol]13 U/CAkbovb18-65KhcneheakyMemorial Health System Selby General HospitalComment on above:Performed By: #### [id number] #### [facility] ([facility]) [address] [place], [place] [address]Fggvfjhcq [Mass/Vol]0.6 mg/dLNormal0.3-1.0UnMemorial Health System Selby General HospitalComment on above:Performed By: #### [id number] #### [facility] ([facility]) [address] [place], [place] [address]Iihdxur [Mass/Vol]9.4 mg/dLNormal8.6-10.3UnMemorial Health System Selby General HospitalComment on above:Performed By: #### [id number] #### [facility] ([facility]) [address] [place], [place] [address]Izbxvgzs [Moles/Vol]103 mmol/FXszjpy92-925QwfqpluodtMemorial Health System Selby General HospitalComment on above:Performed By: #### [id number] #### [facility] ([facility]) [address] [place], [place] [address]XD7 [Moles/Vol]25 mmol/AUpumxy13-29TjrktmblytMemorial Health System Selby General HospitalComment on above:Performed By: #### [id number] #### [facility] ([facility]) [address] [place], [place] [address]Jxqxwlpzye [Mass/Vol]1.33 mg/dLHigh0.70-1.30UnMemorial Health System Sel[facility] General HospitalComment on above:Performed By: #### [id number] #### [facility] ([facility]) [address] [place] [address]MTXPBQQIUT FILTRATION RATE ML/MIN/1.73 SQ M.MOOPTSYKZ06.7 mL/min/1.73m*2Low>60.0UnMemorial Health System Selby General HospitalComment on above:Result Comment: The [facility]???s estimated glomerular filtration rate (eGFR) will no [...] potential consequences that do not disproportionately affect anyone group of individuals.Performed By: #### [id number] #### [facility] ([facility]) [address] [place] [address]Scoxzhw [Mass/Vol]122 mg/bVNcyd95-962HiapyxiqelMemorial Health System Selby General HospitalComment on above:Performed By: #### [id number] #### [facility] ([facility]) [address] [place] [address]Cllamhdjq [Moles/Vol]4.2 mmol/LNormal3.5-5.1UnMemorial Health System Selby General HospitalComment on above:Performed By: #### [id number] #### [facility] ([facility]) [address] [place], [place] [address]Mwvubod [Mass/Vol]7.0 g/dLNormal6.0-8.3UnMemorial Health System Selby General HospitalComment on above:Performed By: #### [id number] #### [facility] ([facility]) [address] [place], [place] [address]Jjkltp [Moles/Vol]136 mmol/WGgrwtc242-950ZyhlxkxpnvMemorial Health System Selby General HospitalComment on above:Performed By: #### [id number] #### [facility] ([facility]) [address] [place], [place] [address]Brlg nitrogen [Mass/Vol]31 mg/dLHigh7-25UnMemorial Health System [facility] General HospitalComment on above:Performed By: #### [id number] #### [facility] ([facility]) [address] [place] [address]LANS NITROGEN/CREATININE (MASS RATIO) IN SER/PLAS23.3Normal [facility] SystemComment on above:Performed By: #### [id number] #### [facility] ([facility]) [address] [place] [address]EYFATDOab 26-62-7285BSMIREK Attestation signed by Zeus Schroeder MD at 03/24/2025 9:54 AM By using the attestations below, the signing clinician agrees that I have read and verify that the documentation has been personally reviewed by me and ensure that the documentation accurately reflects the encounter. GC: I personally saw this patient on the day of the encounter, performed the nash portion(s) of the service and participated in the management and confirm the resident's documentation. Please note there may be an additional personal documentation from me. Additional Comments: agree Cardiology Consult Note Reason for Consult: Chest pain HPI: Yusef Car is a 74 y.o. male Past [...] normal pressures. Patient was transferred [facility] to [facility] for possible cardiac catheterization. On presentation to the hospital, troponins have been flat at 43. EKG done showed left bundle branch block with premature ventricular complexes. Echocardiogram pending currently Cardiology ROS: Review of Systems Constitutional: Negative for chills and fever. Cardiovascular: Positive for chest pain. Negative for dyspnea on exertion, irregular heartbeat, leg swelling, orthopnea, palpitations, paroxysmal nocturnal dyspnea and syncope. Respiratory: Positive for shortness of breath. Negative for cough. Gastrointestinal: Negative for abdominal pain, nausea and vomiting. Neurological: Negative for dizziness and light-headedness. Past Medical History He has a past medical history of Abnormal ECG, Arrhythmia, CKD (chronic kidney disease) stage 3, GFR 30-59 ml/min ([facility]), Diabetes 1.5, managed as type 2 ([facility]), HTN (hypertension), Hyperlipidemia, NSVT (nonsustained ventricular tachycardia) ([facility]), Orthostatic hypotension, and Primary malignant neoplasm of duodenum ([facility]). Surgical History He has a past surgical history that includes Cardiac catheterization (07/27/2023) and Esophagogastroduodenoscopy. Social History He reports that he quit smoking about 41 years ago. His smoking use included cigarettes. He started smoking about 57 years ago. He has a [...] % -- -- 03/21/25 0140 127/80 36.1 ???C (97 ???F) Temporal 73 20 99 % 1.778 m [...] Value Ventricular Rate 74 Atrial Rate 74 SD Interval 192 QRS DURATION 160 QT Interval 498 QTC CALCULATION(BAZETT) 552 P [place] 52 R-[place] 133 T Wave [place] -12 Impression Sinus rhythm with occasional Premature [...] past 12 months Relevant Imaging Results ECG (more content not included)...NormalUnMemorial Health System Selby General HospitalHIGH SENSITIVITY TROPONIN Ion 94-45-0635JH TROPONIN I (NG/L)28 ng/LHigh<20[facility] SystemComment on above:Performed By: #### [id number] #### [facility] ([facility]) [address] [place], [place] [address]FJ TROPONIN I (NG/L)43 ng/LHigh<20UnMemorial Health System Sel[facility] General HospitalComment on above:Performed By: #### [id number] #### [facility] ([facility]) [address] [place], [place] [address]JC TROPONIN I (NG/L)43 ng/LHigh<20UnMemorial [facility] System [facility] General HospitalComment on above:Performed By: #### [id number] #### [facility] ([facility]) [address] [place], [place] [address]XVsq 17-81-9646LGR&P reviewed. The patient was examined and there are no changes to the H&P.NormalUnMemorial Health System [facility] General Hospital MAGNESIUMon 00-13-1964Roacytbnz [Mass/Vol]2.1 mg/dLNormal1.9-2.7UnMemorial Health System Selby General HospitalComment on above:Performed By: #### [id number] #### [facility] ([facility]) [address] [place], [place] [address]XNTWVIDRcu 20-68-9874ZIDUYBXDUlsafg given to ALONSO Adams from Rebecca Any medications or safety alerts were reviewed. Any pending diagnostics and notifications were also reviewed, as well as any safety concerns or issues, abnormal labs, abnormal imagining, and abnormal assessment findings. Questions were answered. Bedside report given to ALONSO Adams from ALONSO Fernandez. lab asst RN presented site to bedside RN. Bedside RN visualized site and palpated site to ensure there was no hematoma or bruising, and femoral site appears flat. Both bedside RN and laboratory courier RN mutually agreed that the site presents normal. lab asst RN and bedside RN either palpated or used a doppler to assess pulses on the patient.NormalUnMemorial Health System Selby General HospitalPHOSPHORUSon 03-21-2025 Magnesium [Mass/Vol]3.6 mg/dLNormal2.5-5.0UnMemorial [facility] Comment on above:Performed By: #### [id number] ####[facility] ([facility])[address] [place], [place] [address]DERJ GLUCOSE METER UNSOLICITED RESULTSon 03-21-2025 Glucose [Mass/Vol]124 mg/vCRbsu06-593QqvqfpqzieMemorial Health System Selby General HospitalComment on above:Order Comment: Waived Testing in the ED is performed under the ED CLIA certificate #[id number].Result Comment: zzfqccj7Rpooreykx By: #### [id number] #### [facility] ([facility]) [address] [place], [place] [address]Biqxhfb [Mass/Vol]156 mg/qXUevy17-077BnkvlphdyuMemorial Health System Selby General HospitalComment on above:Order Comment: Waived Testing in the ED is performed under the ED CLIA certificate #[id number].Result Comment: jarizme Performed By: #### [id number] #### [facility] ([employer]) [address] [place], [place] [address]Ibffjhk [Mass/Vol]130 mg/uCQrve57-952ZlyvxuxnaoMemorial Health System Selby General HospitalComment on above:Order Comment: Waived Testing in the ED is performed under the ED CLIA certificate #[id number].Result Comment: jarizme Performed By: #### [id number] #### [facility] ([facility]) [address] [place], [place] [address]AZOTFHW-RJBek 98-99-4625VNP IN PPP BY COAGULATION ASSAY1.02 Normal0.90-1.10UnMemorial Health System Selby General HospitalComment on above:Result Comment: [facility] RECOMMENDED INR FOR WARFARIN THERAPY CONDITION INR PROPHYLAXIS OF VENOUS THROMBOSIS 2-3 (HIGH-RISK SURGERY) TREATMENT OF VENOUS THROMBOSIS 2-3 TREATMENT OF PULMONARY EMBOLISM 2-3 PREVENTION OF SYSTEMIC EMBOLISM: 2-3 ACUTE MYOCARDIAL INFARCTION TISSUE HEART VALVES VALVULAR HEART DISEASE ATRIAL FIBRILLATION RECURRENT SYSTEMIC EMBOLISM MECHANICAL HEART VALVE 2.5-3.5 FROM: ORAL ANTICOAGULANTS. MECHANISM OF ACTION, CLINICAL EFFECTIVENESS, AND OPTIMAL THERAPEUTIC RANGE. CHEST 1995;108:231S-246S.Performed By: #### [id number] #### [facility] ([employer]) [address] [place], [place] [address]SGAAVKQDHHL TIME (PT) IN PPP BY COAGULATION ASSAY13.4 Seconds Kjjyig74.3-14.8UnMemorial Health System Selby General HospitalComment on above:Performed By: #### [id number] #### [facility] ([facility]) [address] [place], [place] [address]Xolodmuhv Auto (Bld) [#/Vol]Ordered By: Pj Isabel on 45-74-0485Gygmfukbn (Bld) [#/Vol]0.0 10 3/uL0.0-0.1FAdams County Regional Medical CenterBasophils/100 WBC Auto (Bld)Ordered By: Pj Isabel on 03-20-2025 Basophils/100 WBC (Bld)0.2 %0.2-2.0[facility]itrick HospitalCholesterol in LDL Calc [Mass/Vol]Ordered By: Ruben Coats on 00-69-4098Hlepgnjkhxm in LDL [Mass/Vol]58.0 mg/dLMckitrick HospitalComment on above:<100 mg/dl GVNFXLI235-560 mg/dl NEAR OR ABOVE BHPLFHU933-260 mg/dl BORDERLINE YIME240-959 mg/dl HIGH>190 mg/dl VERY HIGHCholesterol in VLDL Calc [Mass/Vol]Ordered By: Ruben Coats on 06-55-2895Qcqitjfzxea in VLDL [Mass/Vol]22.8 mg/dLMckitrick HospitalEosinophils/100 WBC Auto (Bld)Ordered By: Pj Isabel on 48-82-8344Wzxamulixla/100 WBC (Bld)1.2 %0.9-7.0M[facility]itrick HospitalErythrocyte distribution width Auto (RBC) [Ratio]Ordered By: Pj Isabel on 28-19-9813Wpngimswpbo distribution width (RBC) [Ratio]15.8 %High11.0-15.0 [facility]itrick HospitalFibrin D-dimer [Presence] in Platelet poor plasma by Latex agglutinationOrdered By: Pj Isabel on 12-85-6520Vsldyq D- dimer LA Ql (PPP)0.69 mg/L FEUCritically high<=0.59Mckitrick HospitalComment on above:RESULTS CALLED TO CONTRERAS MOLINA RN @BY Dominique Cochran 03[address]Increases in D-Dimer concentration observed withthromboembolic events can be variable due to localization,size, and age of the thrombus. Therefore, a thromboembolicevent cannot be diagnosed with certainty on the basis of thereference range. D-Dimers may also be elevated for a varietyof disorders including advanced age, , coronarydisease, cancer, liver disease, infection, inflammation,hematoma, DIC, trauma, post-surgery,diabetes, thrombolyticor anticoagulant therapy, stress, and generalizedhospitalization. Glomerular filtration rate (GFR) estimation in non- AmericanOrdered By: Ruben Coats on 77-57-0316JFV/1.73 sq M.predicted among non-blacks MDRD (S/P/Bld) [Vol rate/Area]55 mL/min/{1.73_m2}Low>=60 mL/min/1.73m 2FAdams County Regional Medical CenterHematocrit Auto (Bld) [Volume fraction]Ordered By: Pj Isabel on 55-66-9946Ytxphoydvh (Bld) [Volume fraction]46.2 %42.0-54.0 [facility] HospitalHemoglobin [Mass/volume] in BloodOrdered By: Pj Isabel on 27-02-2299Prxxqybnhk (Bld) [Mass/Vol]15.1 g/dL14.0-18.0 [facility] HospitalLaboratory - Chemistry and Chemistry - challengeOrdered By: Ruben Coats on 67-82-8447Tuyqbcj [Mass/Vol]9.3 mg/dL 8.5-10.1FAdams County Regional Medical CenterChloride [Moles/Vol]105 mmol/L98-107 [facility] HospitalCholesterol [Mass/Vol]111 mg/dL<=200M[facility]rick HospitalCholesterol in HDL [Mass/Vol]31 mg/jGLdt48-64ObjnbchfdMckitrick HospitalComment on above:> or =60 mg/dl - LOW CARDIOVASCULAR RISK<40 mg/dl - HIGH CARDIOVASCULAR RISKCO2 [Moles/Vol]25.1 mmol/L21.0-32.0 [facility] HospitalCreatinine [Mass/Vol]1.28 mg/dL0.70-1.30 [facility] HospitalGFR/1.73 sq M.predicted MDRD (S/P/Bld) [Vol rate/Area]mL/min/{1.73_m2}>=60 mL/min/1.73m 2FAdams County Regional Medical Center Glucose [Mass/Vol]152 mg/uIFfff22-855KfblmmqjaMckitrick HospitalMagnesium [Mass/Vol]2.2 mg/dL1.8-2.4FAdams County Regional Medical CenterPotassium [Moles/Vol] 4.5 mmol/L3.5-5.1FRegency Hospital Cleveland Eastodium [Moles/Vol]141 mmol/L 136-145Mckitrick HospitalTriglyceride [Mass/Vol]114 mg/dL<=150 [facility] HospitalTSH Qn1.983 m[IU]/L0.358-3.740Mckitrick HospitalUrea nitrogen [Mass/Vol]28.0 mg/dLHigh7.0-18.0Mckitrick HospitalUrea nitrogen/Creatinine [Mass ratio]21.9 mg/mgMckitrick HospitalLaboratory - Chemistry and Chemistry - challengeOrdered By: Pj Isabel on 66-82-0424Hhqttuveecg peptide B (Bld) [Mass/Vol]2610.0 pg/mLCritically high<=1800.0Mckitrick HospitalComment on above: RESULTS CALLED TO SEVERIANO ARANGO RN @BY Dominique Reinoso at 0[address]Laboratory - Hematology and Cell countsOrdered By: Pj Isabel on 98-52-4372Ridfqbxp granulocytes/100 WBC (Bld)0.3 %0.0-0.5FAdams County Regional Medical Center Laboratory - Microbiology and Antimicrobial susceptibilityOrdered By: Pj Isabel on 82-06-3112UUWE-CoV-2 (COVID-19) RNA SHRUTI+probe Ql (Unsp spec)Negative NEGATIVEMckitrick HospitalComment on above:This test has not been FDA cleared or approved, but has beenauthorized by the FDA under an Emergency Use Authorization(EUA) for use by authorized laboratories certified underIA that meet the requirements to perform moderate or highcomplexity testing. This test has been authorized only forthe detection of proteins from SARS-CoV-2, not for any otherviruses or pathogens. The emergency use of this test isauthorized for the duration of the declaration thatcircumstances exist justifying the authorization ofemergency use of in vitro diagnostic tests for detectionand/or diagnosis of Covid-19 under section 564(b)(1) of theAct, 21 U.S.C. 360bbb- 3(b)(1), unless the declaration isterminated or authorization is revoked sooner. Leukocytes [#/volume] corrected for nucleated erythrocytes in Blood by Automated counOrdered By: Pj Isabel on 05-05-3413FWV corrected for nucl RBC Auto (Bld) [#/Vol]13.3 10 3/uLHigh4.0-11.0[facility] Lymphocytes Auto (Bld) [#/Vol]Ordered By: jP Isabel on 04-36-2030Gtxmwoctafj (Bld) [#/Vol]1.4 10 3/uL1.2-3.8[facility] HospitalLymphocytes/100 WBC Auto (Bld)Ordered By: Pj Isabel on 54-87-0217Pokpsnjzwoz/100 WBC (Bld) 10.8 %Low20.5-60.0[facility] Cancer CenterH Auto (RBC) [Entitic mass] Ordered By: Pj Isabel on 50-30-9474PTJ (RBC) [Entitic mass]29.2 pg25.9-34.0 [facility] HospitalMCHC Auto (RBC) [Mass/Vol]Ordered By: Pj Isabel on 67-04-0367WINL (RBC) [Mass/Vol]32.7 g/dL29.9-35.2FAdams County Regional Medical CenterMCV Auto (RBC) [Entitic vol]Ordered By: Pj Isabel on 08-65-3484CHG (RBC) [Entitic vol]89.2 fL80.0-94.0[facility] HospitalMonocytes Auto (Bld) [#/Vol]Ordered By: Pj Isabel on 03-20-2025 Monocytes (Bld) [#/Vol]0.8 10 3/uL0.3-0.8[facility] Monocytes/100 WBC Auto (Bld)Ordered By: Pj Isabel on 52-30-4367Guywncucw/100 WBC (Bld)6.0 %1.7-12.0[facility] HospitalNeutrophils Auto (Bld) [#/Vol]Ordered By: Pj Isabel on 57-07-8475Xiubymuvnid (Bld) [#/Vol]10.9 10 3/uLHigh1.4-6.5FAdams County Regional Medical CenterNeutrophils/100 WBC Auto (Bld) Ordered By: Pj Isabel on 87-25-4429Ejgcoktrhwe/100 WBC (Bld)81.5 %High 43.0-75.0[facility] HospitalNo Panel InformationOrdered By: Ruben Coats on 63-29-2604Dzjxrmyb I High Dyuedqqyquo61.0 pg/mLCritically high 4.0-76.1FAdams County Regional Medical CenterComment on above:RESULTS CALLED TO MISSY VILLATORO RN at 1625CUT-OFF [...] INTERPRETED IN CONJUNCTIONWITH OTHER DIAGNOSTIC AND CLINICAL INFORMATION.Phosphorus Level4.0 mg/dL2.6-4.7 [facility] HospitalNo Panel InformationOrdered By: Pj Isabel on 37-82-3832Kejnnzg Influenza Type A AntigenNegativeMckitrick HospitalComment on above:Negative for Flu A protein antigen. Infection due to Flu Acannot be ruled out. Flu A antigen in thesample may bebelow the detection limit of the test.Bedside Influenza Type B AntigenNegativeMckitrick HospitalComment on above:Negative for Flu B protein antigen. Infection due to Flu Bcannot be ruled out. Flu B antigen in thesample may bebelow the detection limit of the test.Eosinophils # (Auto)0.2 10 3/uL0.0-0.7FAdams County Regional Medical CenterImmature Granulocyte # (Auto)0.04 10 3/uLHigh0.00-0.03[facility] HospitalPlatelet mean volume Auto (Bld) [Entitic vol]Ordered By: Pj Isabel on 25-47-0554Wsbxntxe mean volume (Bld) [Entitic vol]10.3 fL9.5-13.5 [facility] HospitalPlatelets Auto (Bld) [#/Vol]Ordered By: Pj Isabel on 90-34-8431Syteiicsx (Bld) [#/Vol]415 10 3/eV972-153ThzerbzddMckitrick HospitalRBC Auto (Bld) [#/Vol]Ordered By: Pj Isabel on 38-85-3306GIO (Bld) [#/Vol]5.18 10 6/uL4.70-6.10Miami Valley Hospitalerum or plasma anion gap determinationOrdered By: Ruben Coats on 40-11-1541Klmuz gap [Moles/Vol]15.4 mmol/LFRegency Hospital Cleveland Easterum or plasma total cholesterol/high density lipoprotein (HDL) cholesterol mass ratOrdered By: Ruben Coats on 93-93-4503Vrckubgbivj.total/Cholesterol in HDL [Mass ratio]3.6 {ratio}[facility] HospitalComment on above:3.3 - 4.4 LOW RISK4.4 - 7.1 AVERAGE RISK7.1 - 11.0 MODERATE RISK>11.0 HIGH BRCPPvH7v HPLC (Bld) [Mass fraction]Ordered By: Tomeka Rosado on 86-27-3343KdY3m (Bld) [Mass fraction]7.1 % [facility] HospitalXR ANKLE LT MIN 3Von 09-56-2346[place]smPhil[place] [address] XRay Report Signed Patient: YUSEF CAR MR#: [id number] : 1950 Acct:[id number] Age/Sex: 74 / M ADM Date: 01/09/25 Loc: RAD Attending Dr: Tomeka Rosado NP Ordering Physician: Tomeka Rosado NP Date of Service: 01/09/25 Procedure(s): XR ankle LT min 3V Accession Number(s): [id number] cc: Tomeka Rosado NP [place] [address] Patient Name: YUSEF CAR MRN: [facility]:[id number] date: 1950 Sex: M Assigned Patient Location: [facility] Current Patient Location: [facility] Accession/Order Number: [id number] Exam Date: 01/09/2025 10:50 Report Date: 01/09/2025 [...] Dudley M.D. 01/09/2025 10:56 AM Dictation Location: [place] [address] Electronically authenticated by: [id number] Y Date: 01/09/2025 10:56 Dictated By: Kisha Dudley M.D. Signed By: 01/09/25 1059 DD/ 1056 TD/TT: Truck Driver Supervisor:FABIENNEHRadiology, Radiologist, - 01/09/2025 [place] [address] XRay Report Signed Patient: YUSEF CAR MR#: [id number] : 1950 Acct:[id number] Age/Sex: 74 / M ADM Date: 01/09/25 Loc: [facility] Attending Dr: Tomeka Rosado NP Ordering Physician: Tomeka Rosado NP Date of Service: 01/09/25 Procedure(s): XR ankle LT min 3V Accession Number(s): [id number] cc: Tomeka Rosado NP [address] [address] Patient Name: YUSEF CAR MRN: [id number] date: 1950 Sex: M Assigned Patient Location: [facility] Current Patient Location: [facility] Accession/Order Number: [id number] Exam Date: 01/09/2025 10:50 Report Date: 01/09/2025 [...] Dudley M.D. 01/09/2025 10:56 AM Dictation Location: [place] [address] Electronically authenticated by: [id number] Y Date: 01/09/2025 10:56 Dictated By: Kisha Dudley M.D. Signed By: 01/09/25 1059 DD/ 1056 TD/TT: Truck Driver Supervisor: GAYE HealthcareRadiology Study observation (narrative)[facility] HealthcareXR ANKLE LT MIN 3VOrdered By: Radiologist Radiology on 92-02-0311[facility] Work Phone: MRI ABDOMEN W WO CONTRASTon 86-25-1427NXM ABDOMEN W WO CONTRASTRADRPT EXAM: MRI ABDOMEN W WO CONTRAST CLINICAL [...] Signed by: Veronica Patel MD 12/17/24 Final resultNormalFort Hamilton Hospital & Creatinineon 12-08-2024 Creatinine [Mass/Vol]1.07 mg/dL0.66 - 1.25 mg/dLCleveland Clinic Euclid Hospital Rate72- PINFMorrow County HospitalComment on above: GFR calculated using CKD-EPI (2020) formula. Stage 1 Kidney damage (e.g., protein in the urine) with normal GFR >=90 Stage 2 Kidney damage with mild decrease in GFR 60-89 Stage 3a Moderate decrease in GFR 45-59 Stage 3b Moderate decrease in GFR 30-44 Stage 4 Severe reduction in GFR 15-29 Stage 5 Kidney failure <15 Interpretation and review of laboratory resultsAbnormMercy Health Fairfield Hospital Urea nitrogen (BldV) [Mass/Vol]24 mg/dLHigh9 - 20 mg/dLCleveland ClinicBU AND CREATININEon 38-48-4065Eueqhzkqms [Mass/Vol] 1.07 mg/dLNormal0.66-1.25Morrow County HospitalComment on above:Performed By: #### BUNCRE #### [place] [address] Ph. [phone]/1.73 sq M.predicted among non-blacks MDRD (S/P/Bld) [Vol rate/Area]72 mL/min/{1.73_m2}Normal>60WCleveland Clinic Children's Hospital for RehabilitationComment on above: Result Comment: GFR calculated using CKD-EPI (2020) formula.\X0D0A\Stage 1 Kidney damage (e.g., protein in the urine) with normal GFR >=90\X0D0A\Stage 2 Kidney damage with mild decrease in GFR 60-89\X0D0A\Stage 3a Moderate decrease in GFR 45-59\X0D0A\Stage 3b Moderate decrease in GFR 30-44\X0D0A\Stage 4 Severe reduction in GFR 15-29\X0D0A\Stage 5 Kidney failure <15Performed By: #### BUNCRE #### [address] [address] Ph. [phone] nitrogen [Mass/Vol]24 mg/dLHigh9-20Morrow County HospitalComment on above:Performed By: #### BUNCRE #### [address] [address] Ph. [phone] Panel Informationon 74-00-7705VgmwqybGEMA Mccartney 11/30/2024 10:44 AM L Inj/Asp: L [...] neurovascular intact s/p injection. . ( Codes 55148) Procedure, treatment alternatives, risks and benefits explained, specific risks discussed. Consent was given by the patient. Patient was prepped and draped in the usual sterile fashion. NOMS [facility] Hospital of GreenvilleUrine Cultureon 71-63-2729Gorkgaxb identified Cx Nom (U)No Growth 2 Days PERFORMED BY: [place] [address] PATHOLOGIST ELECTRIC SYSTEM OPERATOR ADE BELTRAN M.D.[facility] Physician GroupComment on above: Performed By: #### CUU #### [place] [address] USAXR ABDOMEN 1Von 11-91-8768BmcPhil[place] [address] XRay Report Signed Patient: YUSEF CAR MR#: [id number] : 1950 Acct:[id number] Age/Sex: 74 / M ADM Date: 11/28/24 Loc: LAB Attending Dr: Tomeka Rosado NP Ordering Physician: Tomeka Rosado NP Date of Service: 11/28/24 Procedure(s): XR abdomen 1V Accession Number(s): [id number] cc: Tomeka Rosado NP [place] [address] Patient Name: YUSEF CAR MRN: [id number] date: 1950 Sex: M Assigned Patient Location: LAB Current Patient Location: LAB Accession/Order Number: [id number] Exam Date: 11/28/2024 16:16 Report Date: 11/28/2024 [...] 11/28/2024 4:17 PM Dictation Location: [place] [address] Electronically authenticated by: [id number] Y Date: 11/28/2024 16:17 Dictated By: Jose A Gallardo M.D. Signed By: 11/28/24 1620 DD/ 1617 TD/TT: Truck Driver Supervisor:TBHRadiology, Radiologist, - 11/28/2024 [place] [address] XRay Report Signed Patient: YUSEF CAR MR#: [id number] : 1950 Acct:[id number] Age/Sex: 74 / M ADM Date: 11/28/24 Loc: LAB Attending Dr: Tomeka Rosado NP Ordering Physician: Tomeka Rosado NP Date of Service: 11/28/24 Procedure(s): XR abdomen 1V Accession Number(s): [id number] cc: Tomeka Rosado NP [place] [id number] Patient Name: YUSEF CAR MRN: [facility]:[id number] date: 1950 Sex: M Assigned Patient Location: LAB Current Patient Location: LAB Accession/Order Number: [id number] Exam Date: 11/28/2024 16:16 Report Date: 11/28/2024 [...] Gallardo M.D. 11/28/2024 4:17 PM Dictation Location: [facility]17 Electronically authenticated by: [id number] Y Date: 11/28/2024 16:17 Dictated By: Jose A Gallardo M.D. Signed By: 11/28/24 162 DD/ 161 TD/TT: Truck Driver Supervisor: GAYE HealthcareRadiology Study observation (narrative)[facility] HealthcareXR ABDOMEN 1VOrdered By: Radiologist Radiology on 09-36-1433[facility] Work Phone: Orders Onlyon 66-29-8099Hvvthe [id number] Yusef Car F 1950 M Date Provider Department Center 11/23/2024 [id number], HISTORICAL EZEQUIEL [facility] Family History Problem Relation Age of Onset Angina Mother Cancer Mother Heart attack Mother Heart failure Mother Hypertension Mother Cancer Father Diabetes type II Father Hypertension Father Cancer Sister Diabetes type II Sister Cancer Brother Diabetes type II Brother Hypertension Brother Cancer Brother Diabetes type II Brother Family Status - Relation Status Age at Mother Father Sister Brother BrotherNormalUniversHighland District HospitalOffice Visiton 13-96-2470Tyivdb-up [id number] Yusef Car 1950 M Date Provider Department Center 11/22/2024 NOE FERREIRA EZEQUIEL [facility] Family History [...] Mother Father Sister Brother Brother Level of Service:[address] [place] OFFICE/OUTPATIENT ESTABLISHED LOW [facility] HospitalL Inj/Asp: L glenohumeralon 47-95-6817GzagxrvGEMA Mccartney 08/12/2024 9:19 AM L Inj/Asp: L [...] neurovascular intact s/p injection. . ( Codes 57755-OZ) Procedure, treatment alternatives, risks and benefits explained, specific risks discussed. Consent was given by the patient. Patient was prepped and draped in the usual sterile fashion. [facility] BaptistHbA1c (Bld) [Mass fraction]Ordered By: Rubylibby Campbell on 34-77-8560Fqcxnjqffovqlf and review of laboratory resultsAbnormal [facility] BaptistLaboratory - Hematology and Cell countsOrdered By: Ruby Campbell on 72-56-7369CfS2d (Bld) [Mass fraction]7.70 %[facility] Surgical pathology studyOrdered By: Olimpia Ware on 65-48-6305Mruvvyvhcu comment Gui (Report) z3gqmSOcDDUca6xoMFYjzEAbMeNeAvUdCmThEjqjiERzHQbertMsPMclt9KlU7CpLkAnVXwlgxCmAUCl JychdhjxHFXtUVO5faPw QPBqNBgmPOUtCKdrCt2suPCgkNkaNzAwQXNsv9jytpGUWOotXQOAKOe9d0vgQUHeVqL7oQNqWPitF3ai alYblVRpT1Bsn7AtFVy5 cD11JUBmwR0ayHQwRDrewtBwVkT2KByfQQBrAkS3LDMhoZXuWBFfJ4ipBTHwKRtcAHTgMTmhxXPxYLV9 sZber3F8kESouXGosZxz DwRiTfHgUdXDm9BcJDb8uIckT4KmAGNgCdS2sXRzGSReXMliMLRlIYTtekS7mB88HJtpsmN3iOQcd0Of r15xf736uK9hgOCkWSP1 MEMrSVPdcZMwBLAvVCX7XHHgfEHiL7vsCoXlzTEzD8RhQfHqaRRfI9WeHhAzrCNsL0VxRuZrdOKlUJAe wHW0FEfsj693RXI8CqCw HB1uM1Hgs2K1sE9csYVaBGTohXGjWaXaWTElso2xrWDiEUdbo4RnEQR3gtH6cSMdnLKfAQDlVU08Gtjv e9BiIrhlWRV4HSAtnjSm q9Sgw1gcJyEualYyU3wjG5QdYNGwIGAfCHBtNlHpnqOep6Vbd7JuwYMpdIm8h0axMUFyFSFapPvzn9sh ZFB2GVBdY4L3cKIbn6nb XEhvHUSavQY8yqT0VYhdGDPqtvC9nkU8BLyuWHWfzLQ1bxC6XGzhKVUhZxE0hkX3HElaFKSgKHE8AdZp OCEca4FmpmxbYiWfu5Wi oWVhKIhdU74as172GBGrbtLlV5jpuVAaqeffyDHnfovyTEjmlzE2HGVwQZZsNEbbZQAyMQLbAuNqnVXm ZzEwMzNcaGljaFxmMVxk DpGrBYTtLKsmZ9taLoIkFzHkBYCAdAB4cIXpz7qdhzH9hFLpAC8oKNKkkZYwqiTfb5V7RDS1hVWppH4y nVBhXTJszVWonfSkbb38 tQEkrBZ2ARBhRJJxkSKktH8lCYYkHAARnO8yjPZAsqBzpaMhKPJcpWorag0CkGJims6kqGIjA3JkwApp eARmMMNwGLZjuHqqfOXkSKKmOBXuxyenn4CfXHQiuESnC0UnSY1mPNNzlg02Nijynuslhz [facility] Work Phone: Pathology report Cancer NarrativeSurgical Pathology Case: [id number] Authorizing Provider: Jeremiah Magaña MD Collected: 06/30/2024 0957 Ordering Location: [facility] Received: 06/30/2024 1055 Pathologist: Olimpia Ware MD Specimens: A) - DUODENAL BULB BIOPSY, Bx Scar B) - STOMACH ANTRUM BIOPSY, r/o H Pylori C) - STOMACH BODY/CORPUS POLYPECTOMY, Polyp Cardia [facility] Work Phone: Pathology report final diagnosis Narrative i7muyZQuBBQdlTZkIYtuQtidtnXuZXNxeEOyS1SctxknDXxrPD9oOD4ggVrffRDsdHYcHIPvRhKcn5fj n205wUPbg4jwRMMXzxcx gTa2oJdtP97ep3X1AigmD1urNUQmECbhZIQgPJdbpTSuLEy2AKTuaYWorpKhHrAeRTAomZDipXW5DCPn NU4glmchGFmvZZkjFAYj iuQ8QUXjjUOnI2NuUFWqND1vtptgQVX8CCzlOWFkSSK6SsMaUFAne1Vsoac6CzHlpSr6d8lxRKMsJHWi nNaoj1xaOUE4MQTlvWLv G9mveT8kATNdOP3lgtzzh9jnUKqeVKbbBQOirYB3lwB7BNCcjZLlH9WooN3sTWRuVHGaneBjmPruhF8r KzyauwNjOJIwSOBAP7VG FyOEPRAMUYWiISAZR1RDTEjnVpRoFBxiIPJoT62yfMoeFo96AXojzLVxd0EwHCbyqRwsln9gs1tnhmmn xKKuepJyZSuwY72qj1Hc QlPedEGcymX8xO8kCpeaHHAnnDPnMKBaSb1lL9LYBMBGIKTTQuEFLD6cNpcWOTPCXxjiVNIkSSWtozBR asMpKQtrkABtd6VjPDmr lMhlAzGbfHXfNFDfk7OizkOoE7RjrhBjQ1XokZLzyYY5tDpqIBOmwmSUriIjh4LviS7gv4tzKiRlamtj YG2qMMFpRxCTQVeqP18x JMK4WIYszAzwy2EcCJlib7Kqt1SeZT8sn43iQfaiDGJczZDbCQHlMw1xS3LNCTCMRFHGX0CQV4KUKgRY UiKXJ3jEZTSYHT7DZHrs NnAcSTuvOCHbrGGwJZnoZcFqC8g0miAnYuJbhNAms4Vno6p4pJLaDXJ9rMJthbSng95whVI0VZ62UHzh aUqwOmNbKKerRTmuMR3aLZStcZcnDnhsESMjaNKoxU==Keiuhinign [facility] Work Phone: Pathology report gross observation Narrative a1chzKNsHNRmyHNASUP8ALEpHK9qiQmkqQh6qIulMDQwzhI9pCUoESoku1jzUCB3i2hcjtUPSbiiQTUm UF0oZRksKPMrCP7aItIs IZPzBdOtXMDztTZxleQdPwRhCRDteCGwyTX4AJWcJN4ecantBEpqHVmsSHUrkzA5ZXRgnETlZ3IfLDKp PD0irlztAYH4RNXJMopm Zp1uhPUkuMBNTkztPvJdBlVuZSUtUQSxPPLxo9rlfrKYAJauFFPOWNh4UYg2ZHLuKIEctNKad7L9HVeu h7rgj2NuTYWkSIp6jZ5J JzdjJLT5IIHXMfeeKlesbBfni5TfeENgLIRfVYbabVVeEDLpGFHlDTksBhXPFpGyOvVgAfX5GNR4YzIz GNb1JOjoIvJKIALgROH6 ICigBTy1CJqfUDouhFExNGNvQLZaLPUtIZapuzT6c2frSDLikBStEZE8RAlsu8arDLypQYL9JDBjEjAk RDMeRH6KLzGtIANySnU4 JDw1KsC1YIy2CBDOFtHcXhMrTXT1SqQ0FuYxCPa5GMl5GCkCAwMePaj8Jem4QzO0XKA6GjXeEQksonpi LWi4POJzVOnrxsIkZHyf HnwkGXlfD21wjPZtVWBJLepkvEWmvxpbdCjmOhEnbHJyXoSbTFblqYRscQEnRI6NFSv3enRpZAHlLGIs XpTbEKdoBHXiX1RucpLh XCmgPFJfcb5ppMbyGPMuEKByyCTxLFwkrQrayBppYGPogItikqSgnkVqPE0hWGBcXUVjh6PgkQMzvISk jC5zVDWiAP2aLTLwOLOn qW1rFS9jkKJtyBikGFS5JXMzTHNuZygqHHZrmtLewBZrrBdkpRQbKkTzN16pluQzDC2pNUOitlCmc3Z6 UVPve3P5QIQbP1hmZKng kRrqWkZ1kyUxZhQrcTPgWpLvrCBxNtSiX83jEYRmRLFzoVJzjO4lfcVvzeZgcJEktQS1ILZrkQ9gmI35 tjGsseOvUINwy7RmbBBh PlemGUFrNNrzd1QeASvdyQfaEEZoWlLgSVsCZO9ZWsKsJQ5VMVQcoPQJYYO0MC4fNDcmUEAsE3ZkN5Rg bnN9HMSsqmDTCbkfGxdj zCsve1XosMNxNDWrAWvihOXzUGUxYXLuOCpoZlSCVlZaKjVaKqC3OZD8FhXeXKq2WPbqK5UAAQBwPKT6 JqAmWvAvOeA5DEq1WZBL Na0fXGX0ZVp4NAJuBXY8ZYAhQSOrIW5pSDgvmONlEAbbu1StJoBlLAKxCUesmaL3PBAdwzZoHPhytEjw zN4jIHQdU02ny7IGm0Na ES2ECAr2ojAbtatmNkGnWYpwmCilMRHpXNL4TT6UQIa0aaGlSRMpKFRsByZwGilyQgQvEKh9CLSxjB5g Dj1ntQJeaR9rXQktNuPe HVTob1l8dDI9zQNccWQ7jFDieHtrNZ4wiXYtMJ8kANyyv2DcyLJdGX01kDVmqxTyjgFoGiJif6ShjTHg qEJkadXypC4xQuscFSBa tyYWMDU2gC7nfDydfHFnEVHbwsZypCIbwPTgZuA7LW8ej43miLE6wEJkjHQhmGZny4CbgI8fJFElBjA1 ONDlGdM3BXQoHcZasX5m VFzfXOSjNQVrnXHiDOvhOQJ1Rz2hsLAtHEUpsxG4e4WvWSrkUDSaF6Two5K9hSWgCMOgoeFOTjagCCDl YXs8qkPritshVGCiVQQf sXDRl8UiVDZAWvcVQ3MVLrLlSPfcRPXlE53gu2LTz2Cox9vxpRysi8NnxQJbJF8tiYBeDA7Na0mqZXJc aJHsLCF0LBlbn2wwZYdo AJV6XJBgDqXpUJCqUV2YRqPcFXGkYsB1LPx8QrG8BYm0VORUNtOeLiFyDEZ5GkM1ETFeGTn4VXg3DMbA BmHuMes3Goq0MTT3XJB5 ZkFsKOyjlstpWRl0GMAbLOyfjkGdANnbAwklZMolH53ycHOyCSUGWgzxzGDveehiyTvlRpGjkURzAtSu DQpcbHRycGFyXHNiMTM1 PHItmDQIp0ZeJgVdMLgbgZTmG1uiMbIoZbNwDSGHLvWTXMXfbBXqOLFbzjAsa1FgUBnjhcbxhXSnAGyk XHF4pLBmSIWsDXUoVBDb LB87I1OhmeSgMOQcmiCtrG6aqZo6FAuplaUfGkWwSSWfPNWjAcytqV6sLVMkNGVxbGwbXASjg0z9zLDq YXJkaWEiLCBpcyBhIGZy XNkkGY57RK3lZYQiqwVdy7O2JPZtj7J6FOPlQKChuUGunaxsAI78XWbdSQ4pKZvcBA2aXCWoNsINkSMu r3CoI2crJU4erSLux6Ch gDp5hNDqZSgiRYWyvF7geS0wNQUaSJYvHHC8MI9soKBnAX8GKVGjuuStkEGupVFpQFLtIlNzLPOsE5wn OJTzDZ2VS6NbA2NGPMLM CtkfqTezCpOucGAyYbZ8CTHrvOZsRAO9BF7zgDcjUAHlX1ZfD8ZjdbD6BQXuytPWCemqZSOrIB7FDMZd ATpaQC7RyD==CiahosixhhJ.[facility] Work Phone: Pathology report relevant history Narrative r8asnQNgAGWfhYHiBVliLptkayLeWDTliAXpO7QcoawiNOlkWA8sTJ4yaXpiyRFtnENsQFEhUjDwn9vo e919eFPqh8vhSCVSwfis eCr5eMrmP45yu5N7VcsuQ2zzKSJfAFrtGHTsGNfpvMXbHZd5BUTifBKgidJwYkAlVXCvyBUwgSS4QBJj LH8xipveNBwwAVmtWZFa unB7BPJpaMBkS7FxQZBwNZ7yjwagTJE1CFzoKTAfOVB5XyCdKSRbh5Tppbs7FyChvCKzIWvvcWDciouf czIwXGNmMSBQcmltYXJ5 IT9szDiwyeAqxABzVGGlw6WmHF4qtfilJEOaPL8rlSXqkZBgDcUmwQ7mPV40nVPwREXfyPstUDlYR8Ta DB8rF6PyJHAvvHKzAVGkitWGVuQKkKjtGU75aCJLXdJ9vJ0yjPwvIVP2Oaxxsmubaf [facility] Work Phone: [facility] Work Phone: [phone] [phone]'s called and said he had an EGD today at in [place]. Before the EGD was completed, she said [...] I'd also pass this along to Dr. San for further recommendations.NormalAvita Health SystemEGD on 12-51-7530TxwymxyllozpauyskyknhnzpgrAuzdu formatting from the original result was not [...] and patient medication allergies have been reviewed. Thepatient's tolerance of previous anesthesia has been reviewed. [...] ANTRUM BIOPSY SURGICAL PATHOLOGY EXAM Grace Garciavach 06/30/2024 0959 3 : Polyp Cardia Tissue STOMACH BODY/CORPUS POLYPECTOMY SURGICAL PATHOLOGY EXAM Grace Keith Harshad 06/30/[address] [facility] [address] [facility] [place] [address] Referring Provider Jeremiah Magaña MD Procedure Provider Jeremiah Magaña MDMercy Health St. Vincent Medical CenterEGD Study observation Narrativeon 48-36-9438Aibog formatting from the original result was not [...] Tissue DUODENAL BULB BIOPSY SURGICAL PATHOLOGY EXAM [facility] Harshad 06/30/2024 0957 2 : r/o H Pylori Tissue STOMACH ANTRUM BIOPSY SURGICAL PATHOLOGY EXAM [facility] 06/30/2024 0959 3 : Polyp Cardia Tissue STOMACH BODY/CORPUS POLYPECTOMY SURGICAL PATHOLOGY EXAM [facility] Harshad 06/30/2024 [address] [facility] [address] [facility] [address] Referring Provider Jeremiah Magaña MD Procedure Provider Jeremiah Magaña MD [facility] Work Phone: [facility] Work Phone: Radiology Study observation (narrative)[facility] Work Phone: Glucose Test strip manual (Bld) [Mass/Vol]on [id number] [Mass/Vol]193 mg/jUPptj91 - 99 mg/dLUnSelect Medical TriHealth Rehabilitation HospitalInterpretation and review of laboratory resultsAbnormalUniversUnion HospitalUnSelect Medical Tri[facility] Rehabilitation HospitalGlucose [Mass/Vol]193 mg/xGBadk11-95GkwpgkhztnWVUMedicine Harrison Community HospitalComment on above: Performed By: #### [id number] #### OLIMPIA WARE ([id number]) [facility] ([facility]) [address] [place], [place] [address]Zpbfjhte pathology studyon [id number] pathology study Pathology report.total SEE COMMENT Surgical Pathology Case: [id number] Authorizing Provider: Jeremiah Magaña MD Collected: 06/30/2024 0957 Ordering Location: [facility] Received: 06/30/2024 1055 Pathologist: Olimpia Ware MD [...] is submitted in toto in 1 cassette. KE/SBS B: Received in formalin, labeled with the patient's name and hospital number and 2,stomach antrum bx, r/o H-pylori, is a fragment of deal soft tissue measuring 0.3 x 0.3 x 0.2 cm. The specimen is submitted in toto in 1 cassette. KE/SBS C: Received in formalin, labeled with the patient's name and hospital number and 3,stomach polyp, polyp cardia , is a fragment of deal soft tissue measuring 0.5 x 0.3 x 0.3 cm. The specimen is submitted in toto in 1 cassette. KE/SBSNormalUniversAdena Pike Medical CenterTelephoneon 06-30-2024 [id number] Yusef Car 1950 M Date Provider Department Center 06/30/2024 MARGARITA MCCORD EZEQUIEL [facility] Family History Problem Relation Age of Onset Angina Mother Cancer Mother Heart attack Mother Heart failure Mother Hypertension Mother Cancer Father Diabetes type II Father Hypertension Father Cancer Sister Diabetes type II Sister Cancer Brother Diabetes type II Brother Hypertension Brother Cancer Brother Diabetes type II Brother Family Status - Relation Status Age at Mother Father Sister Brother BrotherNormalUniGerman Hospital GLUCOSE-POCTon [id number] [Mass/Vol]193 mg/bROwjv44 - 99 mg/dLNOWI Healthcare Interpretation and review of laboratory resultsAbnormalNOWI HealthcareOriginal Ordering Provider: JEREMIAH ROCA HealthcareOffice Visiton 05-31-2024 Follow-up [id number] JosepYusef F 1950 [facility] Provider Department Center 05/31/2024 NOE FERREIRA EZEQUIEL Arteaga Family History Problem Relation Age of Onset Angina Mother Cancer Mother Heart attack Mother Heart failure Mother Hypertension Mother Cancer Father Diabetes type II Father Hypertension Father Cancer Sister Diabetes type II Sister Cancer Brother Diabetes type II Brother Hypertension Brother Cancer Brother Diabetes type II Brother Family Status - Relation Status Age at Mother Father Sister Brother Brother Level of Service:38385 SD OFFICE/OUTPATIENT ESTABLISHED LOW [facility]DM [facility] WITH AUTO DIFFon [id number] ABSOLUTE [id number] HealthcareBasophils/100 WBC (Bld)0.1 %Low0.2 - 2.0 %[facility]OM[facility] HealthcareEosinophils/100 WBC (Bld)0.1 %Low0.9 - 7.0 %[facility] HealthcareErythrocyte distribution width (RBC) [Ratio]16.1 %High11.0 - 15.0 %[facility] Hematocrit (Bld) [Volume fraction]44.8 %42.0 - 54.0 %[facility] HealthcareHemoglobin (Bld) [Mass/Vol]14.3 g/dL14.0 - 18.0 g/dLNOMS HealthcareIMMATURE GRANULOCYTES ABS AUTO0.04HighNOMS HealthcareImmature granulocytes/100 WBC (Bld)0.3 %0.0 - 0.5 %[facility] HealthcareInterpretation and review of laboratory resultsAbnormalExcelsior Springs Medical CenterLYMPHOCYTES ABSOLUTE AUTO1.2NOMS [facility] Orthopedic CenterLymphocytes/100 WBC (Bld) 8.8 %Low20.5 - 60.0 %[facility] CenterH (RBC) [Entitic mass]28.1 pg25.9 - 34.0 pgNorthwest Medical CenterHC (RBC) [Mass/Vol]31.9 g/dL29.9 - 35.2 g/dLExcelsior Springs Medical Center MCV (RBC) [Entitic vol]88 fL80.0 - 94.0 fLExcelsior Springs Medical CenterMONOCYTES ABSOLUTE AUTO 0.7NOSaint Francis Medical CenterMonocytes/100 WBC (Bld)4.9 %1.7 - 12.0 %[facility] NEUTROPHILS ABSOLUTE AUTO11.6HighExcelsior Springs Medical CenterNeutrophils/100 WBC (Bld)85.8 % High43.0 - 75.0 %[facility] Medical CenterPlatelet mean volume (Bld) [Entitic vol]10 fL9.5 - 13.5 fLExcelsior Springs Medical CenterTBH EO #0NOSaint Francis Medical CenterTBH [id number] Regional Medical Center RBC 5.09NOMoberly Regional Medical Center WBC13.5HighExcelsior Springs Medical CenterCLINISYNCNChildren's Mercy NorthlandNo Panel Informationon [id number] Mccartney 04/13/2024 12:25 PM L Inj/Asp: L subacromial bursa on 04/13/2024 9:47 AM Indications: pain Details: 21 G needle, posterior approach Medications: 40 mg methylPREDNISolone acetate 40 MG/ML; 1 mL bupivacaine PF 0.5 % Outcome: tolerated well, no immediate complications Utilizing aseptic technique with universal precautions . Pt given injection Left Shoulder SA space ( code 34955 ) Procedure, treatment alternatives, risks and benefits explained, specific risks discussed. Consent was given by the patient. Patient was prepped and draped in the usual sterile fashion. [facility] BaptistXR Shoulder - left 2 Viewson [id number] Result: AP and Scap Y left shoulder: No acute fracture or dislocation. Mild subchondral sclerosis to humeral head and inferior leon spurring. Degenerative changes noted to subacromial space consider with likely cuff arthropathy/ chronic cuff tear Metallic anchor humeral head without dislodgment.. Visualized lung dahl clear. Impression: Moderate shoulder arthritis concerning for rotator cuff arthropathyAtrium Health Wake Forest BaptistRadiology Study observation (narrative) [facility] HospitalR HEMOGLOBIN A1Con 37-71-4370Rdtwprc [Mass/Vol]151 mg/dLExcelsior Springs Medical CenterHbA1c (Bld) [Mass fraction]6.9 %High4.5 - 6.2 %Ex[facility] Springs Medical CenterComment on above:ADA RECOMMENDED LIMIT 4.0 - 6.0 ADA THERAPEUTIC TARGET < 7.0 ACTION SUGGESTED > 7.0 Interpretation and review of laboratory resultsAbssm depaul health centeralTenet St. LouisINISSaint Thomas West Hospitalgical pathology studyOrdered By: Spike Massey on 01-05-2024 Laboratory comment Gui (Report) u2fzoQQgZXDhm4hyANDrmJSqSxGeWqVxEbDuYyjtfOIpPRpqadMdCDcqz2ThG2CoGkBpLSuhzcCtGUHa LmfiltrdZXNqSLT1wxPc WMYiDXciIYZuAWixMi5vcQMyyPrkXhRgBBPvl3tmzeEJQKlaZXYOVIe5o7maPCAdKmP4gIQnOZxtI5bu ndSoyCOkC4Jse6XeYXs5 xT18NOComS6klVAjIOsqaaSkAlU7QSsmSTJlHhA9MQUyyZFdDZMiW8kwDARuIKkaKUZjLHdzjPHxAVJ6 bEnvr7Q6rVAfsOBzdTfc VfSaSgZfHrPSt0VuEDv0mCfbU2JkMZYmQiR6jSJbBRBwGLisCPPyJWMmgcY6xT61OXldizM3aETjb5Yg k33et822nF4ajICgEZA3 TCZfYXViyXTvQLLrLDF0VAZxbMBwZ1epRnIojRPwK2NeHlAdhPIoU4OaDyVyeIGwQ2MdCvMbuEMtZPHn zGI2POqmn286WLJ2EsIa XX3nZ4Bme3P6lL9evSTjCLYyzYWqDhIzOTBrzp3bhKHkTNjvr7AvXGQ9ggR7lXStgUKuWVGyTG23Deuu n2XfFpaeZRU4BQEztwJl x2Lrc1ekVkEtqjSkI8jkH2SjXYYmTTVgHYVmYkLetxUbg8New2IpzUJfzOg9z7iiIHVsNGXpaGftm8wa XTN7YUKqD0D3nTJor9qb FSvyCOGxzMP0eeA5SJbnKHLcpyR8nkG9XIytQEOgkZY6hgG8OCvwIRJqLlX6tjG8ZLqxJNHvVYN3ObOk YHOqr4CdlaezItIyu8Gh oJEdUGnaE16gg849DMPeraPzG1wfdPKjqewdfXQncmtfFEsifhS4EMCvOGTlQSqhOFSoUYZcSrPyqHJx ZzEwMzNcaGljaFxmMVxk NxPuAWDyULouD7qoQnEpSiEaZHUGcSK3kFSmc5mcduY0xYZvWS4vYREjyKHhxuXff2H8LVG4bIJorY8r zGZnMSXftVHpmpEygw07 pRSphOQ1WSTkTQCstUQczF0zBPEvAELMzJ0zbYLIeiVmrpHmMGRfjUbzmk5JwCKxtp2hySKbW9RlkYef bIWrGKAzDMKkzKdsjSNbHJKoPUOcivgea2YpPDQkyTNkN9ZzDM9qTUEvut72Oncnmvbtlu [facility] Work Phone: Pathology report Cancer NarrativeSurgical Pathology Case: [id number] Authorizing Provider: Jeremiah Magaña MD Collected: 12/29/2023 1332 Ordering Location: [facility] Received: 12/29/2023 1429 Pathologist: Spike Massey MD Specimens: A) - DUODENAL BULB BIOPSY B) - STOMACH ANTRUM BIOPSY, r/o H Pylori [facility] Work Phone: Pathology report final diagnosis Narrative c3yrxNGnBPDyeSBlMNjhPjifzgQxPUXaqASyB5DanjjcVOjkTY8xHY4gfNnxnTFydYXnOTEqOsKez5yd p907bKRoe4mpLSAAtdqy qSw3yMbmR44zi5W1BpefP4dbOXIxXIheZETvFFcsgRHaBTr8ZNJxlIGhwqNyCkWkOUElxVNhyCX1DWUn KU9qapbgZUldUDepLMFb aoL4RUYsxKQtK8XjJVVqJG4qkisdKYT8ZGtrHZLeYMS1AkNnIPTzd0Bwkzs5PnYeoJf3m6iiEUOvXCDs qEygo5qhYLO7XCZcjNJf V0omrV8gIQSeVR4dgsmew2rsPRdwJRddWTUmeGN8uzX3HXHxoIBlG9JodG6sVKQlAZOjliOamUryyE6u RyenkkVjKCXuMVQAO9WY VhRIZUBWIGJyNHBGW9PNFZndL79EGXycPD9QHOARJE5DLCXBSTEGK4ObE8qCCWICNViIZPHDLClKCOWQ WD9ZUW5VLAeBTAXNZKOs Ju3JKE6pkRJiKHZoucTSu2CyXrXKqNzqEJFrehHrzpvezRDdab4bu0DqP4quzGSonB2gjvG6aHIoHXPn ZCBtYXkgYmUgcmVsYXRl RWV0pzKxNFMuJ2B2wI4bSXOcRzOcjXnbzgMbm4gaSXJtQJOyFTnulVUuc76paNLbo0ueGRdsLJ43eW0g uqNwTB7nKLPklxgeCEH4 E4BnYM8pTOfpO8eyJUUrORAkcIBvjXKpxK6jnPDarIxmyXzfet1xlKKcOUIfzrNXMnJTTY6OESMMAVKK OZGDSRNXSQ2KB9w4CJML LHPRPHFLCPcJB1WOS0QURYmLIPoVTNruTVRVOMCBFHdWDrpLNF4KFLuAMvckZ1DSCM0CQKPmRFFgzepa KEQqHs41MBtsXh5wtBirdk7pdbloafokjORnVRMaUPipOY64mILiCOOvWKIrRMDkBWXvFDHbcc2= [facility] Work Phone: Pathology report gross observation Narrative o3iitEQbRPKfiXOOEAX6UMNdWM4jgXxjjSj8wWmvPUNzduQ6bWQtXVjdd7wmRUE8m4dcapSCKopxGSMr HQ6wMGqvIVXiCZ1nEfUz DGMmZfApIIMifHWxqhZrZnEfQMUpuGMskHG9XGBbFX8oiwbfVBgmZOuvBZCdtnQ5AZPjgLPnT4IgKBGd OG8bbhtyOSE2AGPMYwkv Ge4jhIJmqDTLXgheOvSeHsElAXCbLDYoERTfs4rezsMXYPrsUCEOVEu3GTj0MXAtBLSuyNUnx8U7PGms f0hlo7AeAKDzAIe6qI3Z YcznFTI0TNRWVbjbIouhrNzgl8SdjQQfFBNcMTxuhMWiMVTuCNOhMXxnMlFXYlEzIsAqCDR0Iss2VkKr IFb3AWabAnACAGF3QVM6 KSDjHYq5QSpqDSxaiXDdVTXvIUFoIODgHIcsytH0w2kvQDAzeYCqGTH5MUfpj1fjZMsiFID8GFJjJtTp FXBqHU3EVgYgVWU2BFYf Ssd3PmJ8QWd9UYSJDnNmFuAaZPT2BAj4HZCdPTo8VIg4YJlOOgV9MmzuPCAzOEXwRRE1ZWZeNKycuUOp XHQgMiBcXHNzIDMgXFxm iQShRF3ogFxlCLRrIH5BATZbOPuuNYAdiQVQWZH9HX0eSOJCErgqfNOsEBRwEXuhtXMbR2qeGhHaHmYj MCBBOiBSZWNlaXZlZCBp ugRjb9SgKBywtavhqMRvRQzsGAJ0jPSsYTCiTSXjQGOqRM98C2MjxtXdRUOkowCcwS1fhWe0THdhgkAp YmVyIGFuZCAiMSIsIGlz GPDqVsOtA69deiHfv6GquSGrYFAtp0V0VZFao8V2QCBvQGHmvPPidxiqML45PJtfYW6hTZopTN6xHSMy LiAgVGhlIHNwZWNpbWVu CRvrIRD5Ff8fcFSjHJUqcbT8b0HmBWdcBB8zDFLeZXIsLJH2XW8uuGEfJS4ZNCDoRhKhEHHdY8vlAXOe NY8UJeURNNunZASfC66r u5OHk3Erl1mgdIrsh0LesGWkRT6tcYVrGI1Wg6sfYDMmfUQsJLK7TUbwn2dsLVsxTZV3LKJhNgQwPVCs RF1ZQlUiTWU9QRQzBfn3 BaS5IIq1EIZRHbKpBuCrSEX4EDx4ISVoOAz0VMr6IKxVPqU6PhfmTSAfEoEjVVD4HSWzKIoyiIFpQONr MiBcXHNzIDMgXFxmbCBc PQ9ydJpoGHPcLA0OVEPcPUhkJDWokPJFCGD6JV7pBCQNKfbohIEgRHVhi6HeCwTuDSOkR7viLbTpVHBB ClxsdHJjaFxmMlxmczIw IHH8CWBhN4GugvNnZWkgWPPutj9kdBxcEAStRDRxhKUxRWtypHhvnXkdXXMqwTomnsPlgaGuTB4wTFCh BZQwo7SphJSflJRjqH4o PBNsSK7zTPFsFvvyZMLuLV39zOXllLugVEEpYBqpLS27evAjGpX9BG6bVDXfDiCuqCflg0UnLWJkZ7Sf J3O4uP9aRYUzFTZjRhJ7 RNEzRTW0AWUwPNFapQ7hCUamSLRwBCMdeVMpQNbeXJP7Up5efWBnWPNpcnB5a6LpHOhoNO5gOBRlJOFs TZL0BO5qcMPwNX7OMKPw bzUmfCNwoGSvNXFoAtRbAJUxH9pgFWBhQE8USzVZNJkyOCQoF65mi1JVs7Nuu1mltCwfm6DntICcEW91 QEDwfFVlMQR9LU1uxEruCOGnWDsdxTBlNGNQFogxzQWgumFJFm3=Uxeqlyldjl [facility] Work Phone: Pathology report relevant history Narrative k3ydbUJsEAHjcDUiHRpiRxozptEmTHCuzRAxC2JevjeyEBopXN0xML0ijAzqiDPcvXPiYBVeAjQxe0nq r240nTNxx8oiUFSGmltx xQa4bKvmP29qa8Y1OcrvN82uaGGdHCX8YEAqCBNbvOQsFOMvZWZ1FBDebLNaG3okNSFwTI7kvhaeTRgt HNtbXQWwuTL4EXCdzGQf Y8RzZESwUCeoDXSuamm8NaMlSm7swXGihKocANunOWDkGSErTRgrHHAyAvAuOgxmCuUeGVNahNAyJJ1X eWxvcmkgXHBhcn0=[facility] Work Phone: [facility] Work Phone: ct CHEST W IV CONTRASTon [id number] CHEST W IV CONTRASTInterpreted By: Lul Carver and Maltbie Grace STUDY: CT CHEST W IV CONTRAST; 12/31/2023 7:55 am INDICATION: Signs/Symptoms:LUNG NODULE. COMPARISON: CT chest abdomen pelvis 05/26/2023 ACCESSION NUMBER(S): [id number] ORDERING CLINICIAN: NEFTALI KNOWLES TECHNIQUE: Helical data [...] Morales MD. This study was interpreted at [place], [place]. Signed by: Lul Carver 01/01/2024 9:17 PM Dictation workstation: [id number] Wert County Hospital 38-06-3694OnkrbcigdediiaxxpryerstwepEacgh formatting from the original result was not included. Impression The cricopharynx, upper third of the esophagus, middle third of the esophagus, lower third of the esophagus and GE junction appeared normal. Moderate edematous, erythematous mucosa with exudate, consistent with gastritis in the body of the stomach and antrum; electronic chromoendoscopy (NBI) was used; performed cold forceps biopsy to ruleout H. pylori The duodenal bulb and 2nd [...] and patient medication allergies have been reviewed. Thepatient's tolerance of previous anesthesia has been reviewed. [...] DUODENAL BULB BIOPSY SURGICAL PATHOLOGY EXAM Grace Keith Harshad 12/29/2023 1332 2 : r/o H Pylori Tissue STOMACH ANTRUM BIOPSY SURGICAL PATHOLOGY EXAM Grace Keith Harshad 12/29/2023 [address] [facility] [address] [facility] [place] [address] Referring Provider Jeremiah Magaña MD Procedure Provider Jeremiah Magaña MDMercy Health St. Vincent Medical CenterEG Study observation Narrativeon 73-02-1815Odnhy formatting from the original result was not [...] Tissue DUODENAL BULB BIOPSY SURGICAL PATHOLOGY EXAM Graceliang Garciavach 12/29/2023 1332 2 : r/o H Pylori Tissue STOMACH ANTRUM BIOPSY SURGICAL PATHOLOGY EXAM [facility] Harshad 12/29/20231333 Procedure Location [facility] [address] [place] [id number] Referring Provider Jeremiah Magaña MD Procedure Provider Jeremiah Magaña MD [facility] Work Phone: [facility] Work Phone: Radiology Study observation (narrative)[facility] Work Phone: Glucose Test strip manual (Bld) [Mass/Vol]on 51-73-8642Kgfistc [Mass/Vol]147 mg/uJLbdq85 - 99 mg/dLUnSelect Medical TriHealth Rehabilitation HospitalInterpretation and review of laboratory resultsAbnormalUniversUnion HospitalUnSelect Medical TriHealth Rehabilitation HospitalGlucose [Mass/Vol]147 mg/bHMtej62-31AikzfqeupgWVUMedicine Harrison Community HospitalComment on above: Performed By: #### 2341-6 #### OLIMPIA WARE ([id number]) [facility] ([facility]) [id number] [place] [address]14Ehobxvjz pathology studyon 34-11-4678Czbpudnr pathology study Pathology report.total SEE COMMENT Surgical Pathology Case: [id number] Authorizing Provider: Jeremiah Magaña MD Collected: 12/29/2023 1332 Ordering Location: [facility] Received: 12/29/2023 1429 Pathologist: Spike Massey MD [...] hospital number and 1 , is a fragmentof deal, soft tissue measuring 0.4 x 0.2 x 0.2 cm. The specimen is submitted in toto in one cassette. RCC B: Received in formalin, labeled with the patient's name and hospital number and 2 , are multiple fragments of deal, soft tissue aggregating to 0.6 x 0.4 x 0.1 cm. The specimen is submitted in toto in one cassette. RCCNormalUniSelect Medical TriHealth Rehabilitation HospitalCB W Auto Differential panel (Bld)on 50-21-9551Vpwcmywnl (Bld) [#/Vol]0.04 x10*3/uLNormal0.00-0.10 [facility] HospitalComment on above:Performed By: #### 66668-6 #### OLIMPIA WARE ([id number]) [facility] ([facility]) [address] [place], [place] [address]Boubglmrh/100 WBC (Bld)0.4 %Normal0.0-2.0UnFirelands Regional Medical CenterComment on above:Performed By: #### 65822-5 #### OLIMPIA WARE ([id number]) [facility] ([facility]) [address], [place] [address]Oxeeddwwdkg (Bld) [#/Vol]0.18 x10*3/uLNormal0.00-0.40 [facility] HospitalComment on above:Performed By: #### 36679-3 #### OLIMPIA WARE ([id number]) [facility] ([facility]) [id number] [place] [address]Vzsrpekchdt/100 WBC (Bld)1.9 %Normal0.0-6.0UnFirelands Regional Medical CenterComment on above:Performed By: #### 41968-5 #### OLIMPIA WARE ([id number]) [facility] ([facility]) [id number] [place] [address] 34277Cxtbjlszoyr distribution width (RBC) [Ratio]16.3 %High 11.5-14.5UnFirelands Regional Medical CenterComment on above:Performed By: #### 02215-3 #### OLIMPIA WARE ([id number]) [facility] ([facility]) [id number] [place] [address]29[address]Smpowriynt (Bld) [Volume fraction]43.0 %Eujaah00.0-52.0 [facility] HospitalComment on above:Performed By: #### 94635-4 #### OLIMPIA WARE ([id number]) [facility] ([facility]) [id number] [place] [address] 86867Bqzvnxwyix (Bld) [Mass/Vol]13.4 g/dLLow13.5-17.5UnFirelands Regional Medical CenterComment on above:Performed By: #### 40330-0 #### OLIMPIA WARE ([id number]) [facility] ([facility]) [id number] [place] [address] 748[address]Peuxyfwr granulocytes (Bld) [#/Vol]0.03 x10*3/uLNormal 0.00-0.50UnFirelands Regional Medical CenterComment on above:Performed By: #### 77226-2 #### OLIMPIA WARE ([id number]) [facility] ([facility]) [address] [place], [place] [address]Tuesgqmf granulocytes/100 WBC (Bld)0.3 %Normal0.0-0.9 [facility] HospitalComment on above:Result Comment: Immature Granulocyte Count (IG) includes promyelocytes, myelocytes and metamyelocytes but does not include bands. Percent differential counts (%) should be interpreted in the context of the absolute cell counts (cells/UL). Performed By: #### 58524-3 #### OLIMPIA WARE ([id number]) [facility] ([facility]) [address] [place], [place] [address]Smmcodwkezr (Bld) [#/Vol]1.72 x10*3/uLNormal0.80-3.00 [facility] HospitalComment on above:Performed By: #### 99478-5 #### OLIMPIA WARE (73696) [facility] ([facility]) [address] [place], [place] [address]Ftqndowkybu/100 WBC (Bld)18.0 %Hhreby53.0-44.0UnFirelands Regional Medical CenterComment on above:Performed By: #### 90511-1 #### OLIMPIA WARE ([id number]) [facility] ([facility]) [address] [place], [place] [address]MPC (RBC) [Entitic mass]27.8 vwUzsjkp11.0-34.0UnFirelands Regional Medical CenterComment on above:Performed By: #### 77951-5 #### OLIMPIA WARE (99460) [facility] ([facility]) [address] [place], [place] [address]QVMZ (RBC) [Mass/Vol]31.2 g/dLLow32.0-36.0UnFirelands Regional Medical CenterComment on above:Performed By: #### 69953-5 #### OLIMPIA WARE (37052) [facility] ([facility]) [address] [place], [place] [address]LOX (RBC) [Entitic vol]89 dZSppvrn46-692IijwqaiysmFirelands Regional Medical CenterComment on above:Performed By: #### 36662-0 #### OLIMPIA WARE (97264) [facility] ([facility]) [address] [place], [place] [address]Crvhtkcjm (Bld) [#/Vol]0.75 x10*3/uLNormal0.05-0.80UnFirelands Regional Medical CenterComment on above:Performed By: #### 63825-6 #### OLIMPIA WARE ([id number]) [facility] ([facility]) [id number] [place] [address]Etavmsqeo/100 WBC (Bld)7.9 %Normal2.0-10.0UnFirelands Regional Medical CenterComment on above:Performed By: #### 29377-9 #### OLIMPIA WARE (09892) [facility] ([facility]) [id number] [place] [address]Beoasmgowyk (Bld) [#/Vol]6.83 x10*3/uLHigh1.60-5.50UnFirelands Regional Medical CenterComment on above:Result Comment: Percent differential counts (%) should be interpreted in the context of the absolute cell counts (cells/uL).Performed By: #### 61565-5 #### OLIMPIA WARE ([id number]) [facility] ([facility]) [address] [place] [address]Dxuekcqiadd/100 WBC (Bld)71.5 %Plwbaf10.0-80.0UnFirelands Regional Medical CenterComment on above:Performed By: #### 11941-7 #### OLIMPIA WARE (78508) [facility] ([facility]) [id number] [place] [address]Tloqfanjr RBC/100 WBC (Bld) [Ratio]0.0 /100 WBCsNormal0.0-0.0 [facility] HospitalComment on above:Performed By: #### 20403-8 #### OLIMPIA WARE ([id number]) [facility] ([facility]) [address] [place], [place] [address]Grpndnlne (Bld) [#/Vol]365 x10*3/pYFccjsp250-492EmhifqdjxiFirelands Regional Medical CenterComment on above:Performed By: #### 15635-4 #### OLIMPIA WARE ([id number]) [facility] ([facility]) [address] [place], [place] [address]JJP (Bld) [#/Vol]4.82 x10*6/uLNormal4.50-5.90UnFirelands Regional Medical CenterComment on above:Performed By: #### 05746-3 #### OLIMPIA WARE (99120) [facility] ([facility]) [address] [place], [place] [address]VGW (Bld) [#/Vol]9.6 x10*3/uLNormal4.4-11.3Prov[facility] HospitalComment on above:Performed By: #### 29125-2 #### OLIMPIA WARE (20254) [facility] ([facility]) [id number] [place] [address]Budpimhxtsloe metabolic 2000 panelon 99-30-0925Fldeyct BCP dye [Mass/Vol]4.1 g/dLNormal3.4-5.0[facility] Comment on above:Performed By: #### 67828-2 #### OLIMPIA WARE (97552) [facility] ([facility]) [address] [place], [place] [address]IIP [Catalytic activity/Vol]94 U/CZoizag42-379WgkpmvvntsFirelands Regional Medical CenterComment on above:Performed By: #### 87194-5 #### OLIMPIA WARE (22740) [facility] ([facility]) [address] [place], [place] [address]SRE With P-5'-P [Catalytic activity/Vol]15 U/IXschff75-51 [facility] HospitalComment on above:Result Comment: Patients treated with Sulfasalazine may generate falsely decreased results for ALT.Performed By: #### 07518-6 #### OLIMPIA WARE (65134) [facility] ([facility]) [address] [place], [place] [address]Aivar gap [Moles/Vol]12 mmol/FQvrxpj25-33UkfligmtalProvidence HospitalComment on above:Performed By: #### 41076-5 #### OLIMPIA WARE (54841) [facility] ([facility]) [address] [place], [place] [address]KFR With P-5'-P [Catalytic activity/Vol]13 U/LNormal9-39 [facility] HospitalComment on above:Performed By: #### 00296-9 #### OLIMPIA WARE (48222) [facility] ([facility]) [address] [place], [place] [address]Zizcteccq [Mass/Vol]0.4 mg/dLNormal0.0-1.2Providence HospitalComment on above:Performed By: #### 19701-7 #### OLIMPIA WARE ([id number]) [facility] ([facility]) [address] [place], [place] [address]Rnwmvhe [Mass/Vol]9.6 mg/dLNormal8.6-10.3Providence HospitalComment on above:Performed By: #### 93612-2 #### OLIMPIA WARE (80591) [facility] ([facility]) [address] [place], [place] [address]Rmqamwlx [Moles/Vol]104 mmol/MUntdvx52-097YbdileumyuFirelands Regional Medical CenterComment on above:Performed By: #### 85991-7 #### OLIMPIA WARE (67432) [facility] ([facility]) [address] [place], [place] [address]HQ4 [Moles/Vol]27 mmol/MUnzmxu77-09CnncubtgcyFirelands Regional Medical CenterComment on above:Performed By: #### 35450-9 #### OLIMPIA WARE (03609) [facility] ([facility]) [address] [place], [place] [address]Wodjfnevik [Mass/Vol]1.18 mg/dLNormal0.50-1.30UnFirelands Regional Medical CenterComment on above:Performed By: #### [id number] #### OLIMPIA WARE ([id number]) [facility] ([facility]) [address] [place], [place] [address]Idrdixoazi filtration rate/1.73 sq M.cwcyqpjfc25 mL/min/1.73m*2Normal>60UnFirelands Regional Medical CenterComment on above:Result Comment: Calculations of estimated GFR are performed using the 2020 CKD-EPI Study Refit equation without the race variable for the IDMS-Traceable creatinine methods. https://jasn.asnjournals.org/content/early//ASN.9330307287Xegutniml By: #### [id number] #### OLIMPIA WARE ([id number]) [facility] ([facility]) [address] [place], [place] [address]Pjjhlns [Mass/Vol]171 mg/vUMnra77-33YroxupxmmgFirelands Regional Medical CenterComment on above:Performed By: #### [id number] #### OLIMPIA WARE ([id number]) [facility] ([facility]) [address] [place], [place] [address]Brsovvogb [Moles/Vol]5.0 mmol/LNormal3.5-5.3Providence HospitalComment on above:Performed By: #### [id number] #### OLIMPIA WARE ([id number]) [facility] ([facility]) [address] [place], [place] [address]Llbejld [Mass/Vol]6.7 g/dLNormal6.4-8.2UnFirelands Regional Medical CenterComment on above:Performed By: #### [id number] #### OLIMPIA WARE ([id number]) [facility] ([facility]) [address] [place], [place] [address]Wavfam [Moles/Vol]138 mmol/SRtscva360-517QxmkfwbmfpFirelands Regional Medical CenterComment on above:Performed By: #### [id number] #### OLIMPIA WARE ([id number]) [facility] ([facility]) [address] [place], [place] [address]Fifj nitrogen [Mass/Vol]23 mg/dLNormal6-23Providence HospitalComment on above:Performed By: #### [id number] #### OLIMPIA WARE ([id number]) [facility] ([facility]) [address] [place], [place] [address]QGP & Creatinineon 13-08-1966Uydxxnsypn [Mass/Vol]1.28 mg/dL High0.66 - 1.25 mg/dLWYANDOTEst, Glom Filt Ypfp85Dhe- PINFWYANDOTComment on above: GFR calculated using CKD-EPI (2020) formula. Stage 1 Kidney damage (e.g., protein in the urine) with normal GFR >=90 Stage 2 Kidney damage with mild decrease in GFR 60-89 Stage 3a Moderate decrease in GFR 45-59 Stage 3b Moderate decrease in GFR 30-44 Stage 4 Severe reduction in GFR 15-29 Stage 5 Kidney failure <15 Interpretation and review of laboratory resultsAbnormalWYANDOTUrea nitrogen (BldV) [Mass/Vol]25 mg/dLHigh9 - 20 mg/dLWYANDOTWYANDOTSurgical pathology study Ordered By: Gilda Ricci on 69-71-3078Ckblcmlyfm z9kikCSbQALcpODiSnBeUNJhCMVax9clKCVniDEcYrOcLyTjKxXtGkwgvINnNSWgDiIvf6rvk318jZUl w9qwUUBbXsT3uPYoSVMc iXliqdm0zMavFjXxTOEsh6ybssOmQxPuFGPjNDOnUZFfqZnuhcy9tJnoXsLuWRAdnBnwBVYwEPw5oJ06 LWYcvL8wsCOiPPvgugRy WfV3UQsuQPBgJfV3LOLgfRHuJYKfP8pgVPLeRXqdQJPxELiigDLfDBY7wAkxj5F4dSTyjUUcdUvyOsYq OmRgJnWCk4HdHCl5jXrn Q1DhCDUyFlF4bARiYNArBYjkXMWeEZSjtnP8dZoqccKgt34efYTqKSJeHSJcAmKvM45zog7rsM70gC20 YXatuvC4zTMsb5Iir65i j207zS7ohWHoGLP1NNRbTYUguFJbZLVdMNW5DMZijNFlC5ltPNJhVP9kfqytNZhqODpoELHflJV3HJCa nUMxN7HoOYCyEGuiRZEi eek5ReLjEs4asZHmxTfiAZucp4afd8apkVKcLcl8ENVzBjPePqgxBVlyu3Nau5ioLNQuzb0yEVK8gHYx uMnrs9S6xRGkFEQsuAPj hzGrQOUyHxG5BAxfIR6uqm81KNInSHT8cg8mtLVryXxxqwEtsXFvTXjhB9AfUOBkp891KFXbI9CjCEFu b9N3hnEmAmHvXSRwsGD2 lcC5JQZfSSa9eDLqkjW5qpAdpQScR1biqI2dWHMmHN9wshuap8nqHDtsPVcqIDIkfCO6ueY2MYBxiEEl D1UppQ4fNDSwLQfnWDCv lig0OfDwWd0jlLShhQzxTGkwTixaZIadPSBypsTaljVxsTyfOEPvYGVfSCmzJTYpPLddILVnNZCiRaIo lXUbTEims3HnorYevFwn WEKoYIO9SiP8PQX9ZDG2ITe5bJEiDdPhcZioTJqcDNA1AeErPHq9oHGpGrTjtDv9BSTrFJV0LIw8OLf0 iJR8WYEafBe0OoInSGM7 AdisPFz8kCi0WPTkqHg7HcYgITP1IIIhICXqdBqojIgzbS1eBpYyXvLuQyobXZ1iDFKpA7iaeBKwKNRj OCGnR7umSuYccH8crTmr YAovNlKqWhYhUfCJtvGjg5RinC3hQLDtIlL6yUCwucXhS9BvtIIuhFHrBXY7ztLwOOQym9TiZFGwv0L9 fdIhjuU7iYbkPHMjZTWu yTTpJO9WHDBjOGRiLWUeprDcfQ6mLYRon76vv99gtxLiONVxotNfYNNkHKXzgS6xWgUkLF5fxYm8JMZv xXGczKKjXoFwXAEmQB37 roIiBEARP6LhTlVwSQKUQ7ZfeAU9QRBei4HaPoWfuaNvdCJqujHyDZ2vTELxeVNlzwMrZJD8IOSyUFRE IiRnUQJix3IxAV2dPPTe aYspNXRsqN7xy1AkGGIzd71wMONEdYOcMVFww0HofRViw5RbWJAjONUirF7hFQObDO9dLOVxMRgaVLWo qtFylc5ixeEgUSUpNBVk S8WqipgboUceiqPcQQGjnc5ghoOoUYH8HMFmADCRGXCgfuUyOY63GV4bLJGdzWycaN5rlUJlfHWXisw5 PAQfeOI4MKcvn3PzrGBi kpZWaOX1HUywayDyGGBfpHIfgFFYAO57HHZmQEKbIAKKTIJcZI4imwXez9FlunLseIusDWV2pXhnYIIv z1BemF1xG13zcKrtq5Qb aWLzouIuVZMfZIPwObBREBHalgiehf5aQKgiorK5KLM3IRqwKWHdKEXsTt7vLPWewP5jP3LeILU6faIu x7UyYdYPyXLqwG11hTKw tf25ZBYuDQPiI3QeFHBnWJPbITgkkuJrnByeIEGdg76vaOBithIyw5XlrlEaOJPqA2rzINYfsMZyrWZw f5BabI7bqNUgquMjSMP2 xDZcFQOrbL0gOPNnlRvgIDDmxK9cJ9CtVHruVq0jDQXdruioRI3bte12YU6mxxDjDV7snaRoYM02eeAu C9cSUMklMEZmkGNtcKcd oYZmBCPgZKSmyjQxzl9qnCvoqUGoi47tcDJ7pPD9GTRmqU2wI7IbWTjwVr6iTUMrxejkzBXdiOknTq6z HHPaBDTkn3ExlBLvx9Jn DDVlPJInc2JiANYpy8j8pTNsyWOgx9GyqWR7ARZgl5WbbCi1LMXhteKcwcArKFAkwrOfR89slGNurKEj r3bvD3twy5VezV1zCUEzhWIfl2IipTB7LVs5TwztAIP5Itdktwxadd [facility] Work Phone: laboratory comment Gui (Report) t7tmwUUuHYUcb3raCUEqwSMxIrVvVwEfGjZeZthqpUGbLMyvaeZvEHwkx1ReF2GeLtWdYEcgbdUcOSFd NzikrnloFVMhDEZ5cyHu PBWfEEcjKZNbYAdyJf0ppZLahQwgJsRuKAEnz4bvdiMXHHayPSVXPIx7y8vuUNRvAgT6xUWaJUywU4vx trFkdGQdU5Jsj5VfGGp5 pX94XRGkiB1ukDFmVKysigWxRbS2XGxkOIKqGwH5DWSikASyXIZaC2kdODZvCMijBNCsJRrzkCPoQLP0 sTjwy6O8hDTsdTVodRhh PwDdAzSnJgIHc5ZeMKc4xJvxT2DbHBNgLmC3tNObIMJwRIrmHXNyOFDxcmZ5hA71JOzwlkF0mSEdm6Fv h49al021kP7cgUBwMFH1 YRUsKXYvdGQnIGOgJVV1JIJdvGWsC4iwSmVnrBBxY0QrOiCvfALqR7XiIdPvdLOjV6BlRgOqwLIcHMEy yBS9UOxtr265UAC6UmEl IA9hP1Vse7X0mG2lzMItTMIxkGFhEkDmQCDzbr0etWPpQTafc8XdKSW1ktR9wGCvwDBqTMIhCV60Jzak k6RgLmawYWQ4PRJlupKl i7Lpy1esEhRdxoDtS9wnX0SnEVXbAYPwHFWqLvZdscMpf7Sed6BbyAFbcOa0v5csSRZrNQZqfNcuw2nc FWA3IJDfU9K6dZUqr4vj BFvlPGJdlXI1gdT4CFriCJTmusD9dsB2RXirLCFafIF6dyV0JYkyTZQqDtT1mrG1PDqzEOPyFKX8WzPp QZTeb6NjeljiRcNqb4Rz xFTuIHbxV49fi573NSFnjjWfW8gecNSunarhxUKqrvlgWZjgckN3BYMsDGWdXEgdOLYaEPNdFoXxzTXt ZzEwMzNcaGljaFxmMVxk NxFhUBUlSDpcC5xzOiAeQlOoGNXWsTW9pAFxz3oxnvE6iQFuIA9jXZIqwGLqhcLue3M7QSR9aAChyT2c hZYtBXGyjLKdunUkfg65 sBBtdJI3YEAoGIMddSShgL5nOZFlYYTYeZ5yjSDIslPyxrVsAVBjyHgyvl3KbEGqln4clUCwR9FwqOxm vSGiYUQzQUMwhIrvkDTsXLNvBWSuxyvwi4JxVIWacTJgT7NqGC0mLPMuzc70Twxrkqdbtp [facility] Work Phone: pathology report Cancer NarrativeSurgical Pathology Case: [id number] Authorizing Provider: Jeremiah Magaña MD Collected: 10/07/2023 0811 Ordering Location: [facility] Received: 10/07/2023 0942 Pathologist: Gilda Butterfield Asa, MD PhD Specimen: DUODENUM ENDOSCOPIC MUCOSAL RESECTION, Duodenal Bulb Polyp [facility] Work Phone: pathology report comments [Interpretation] Narrative n3hxfLRrMTDspHAjDVWtT3zrwzBpXFIxnCBiA2QyudvuGLshUJ2nQN7dhEtdyWHvdYHiRSTcFdUcm6iw q958bBPsf7oyZIAOqhkc uIz1fWsaR77xi3N3WthsN00noYKyBMM8UNIbCIThmFRtVSChFVR9TAVvaONfQ4srPNMqRC8stqxiSItt CScmOKCkmLW1NYQobVMq G6PsHMPnRJknBCXuybm8TgBdPf9liVIavPusLQcxGALfGVJzEWkaXCSjRdFgZZolWQFiv3SgiJMezH48 cyBleHRlbnNpdmUgYXJ0 ITPpR9LtFeW0SYQ4UYdprcOwt2WoJ1unc66fF0QqrpkfKYNxnuAydi5gOXXbi5WyXEipJPuboTOcMvW6 qD6iDC5uJSAcx8k1hARs DAVroGvkIYzkfHosjkV5cJVmbUQye5VvWeKXnEWiTGWhpoZgleNvkemsFW3wPPPiKcAxXZIoHUXceMAc JDCgw4CcEB2yzzfqJIC5uF6kqgWgcyR3eMurZOYkDXLltZByMshtUYV7Wqelrtintz [facility] Work Phone: pathology report final diagnosis Narrative o2gwhULiTBWhsKXnAMFjF3sjebXbKFKrpVEiI2MfvknmKQpfLB4zZA0qmUuwfOTcnYPwTANaIjJme2mf t074sNVpk5koSUUQwfoj zXz2ySrtE37up6W4LyoeQ71hmBRhWWC8SZYrJGDswROtLYZpKFX3MEFwkABfZ0ntAWSvZC7kuspqHZow JFniYRPqtTW8SHVwhDKk C7OtEDTtLRcrZSWigyd6EsVvAu1rlMPwzNimEEaaT2mvcW0mCkZ2GDmvB5jqtE0dNXd3MOntRAOenOK8 ovM2QBKocCPfC0ApqM6a HPEgHS6omzd7b5vhVMP7OWmrLZQzIrG7cfE8SVZtaTBeZLiqnJOxqxsdTBZtlkAQeiMxPMJfj9baB0qo XKqdECyqV27eu8tfFuAH hS3nQK70jSXvTwHgUnydYM6rk5Age5TgFcZmiBClh1IyPIQei3XunPawpsqoSRO6Ggnjezacka [facility] Work Phone: pathology report gross observation Narrative h8gyyKSyZJMvtKHqBOTyW4tkqnFhNNWnkNGlN0PamynmPGshTK5nEX4zdPqwsYXusWAvPPCePhQbk7lx w265sWJzt7qdDUFDrswx pVr9vCtnQ48zk9K6JgcvI98fyCQzFPQ6WOYuNMDabSXcTTUzTDJ8GYWfbTTuS6luKMYrQP2zvvzkGSum IBvfREEgvEH7OMGbhYIp Q0ZiIZIlFTevWZFctqx7HmFlPp1opLVodDxaJOasImfpiGrxi3XrnJAzKAjpXYXnMFPkEGsrksfcHTy6 FTLfPHtbgPIcKT5twRtd NomvuUxga1JmtYUeODhqGKZkLSAwABykWWJyK4YVQSEcYGOvElG2QDUjOEh6FWw5DQ0QRuOlOBLtVPEw Tha6MNHbQSj1TCnhIM9N UKK9FyApQWA0EeV0WJX1JuOvQE1dDItvtZKqHUput6NhCbGxMZFzXMgfcnH2YSQsioNxn2LmATbonKzh WIFfCwDezRaccT7yUrBl KQLTXZXbaXBuQJZqedFdt6VeOEubedexqPNrSJtdTSA6bWDkSGPfAKGxYEWsZG61K9CtqgDkYQFgcqGz wW1ebGf7ZMjanxGeQxIo JLJsAWRsVHXxEDIcJQTdnAt6rFRhALCwhyVxcTIkaKPfq4XrbUHbAFPaKcXryDicl8MdLAJqNAVzaEVl p2CiJCWhFoUnaIReMfOw jRXoYeLdX22icO6dVDissbNoPZObNpFRwKEes2RnU8kwLD1smIVms5HmcMt4pJPnCBjiSFDogO0veH8f WaAgPDWqQWK7VNJzAYTe zwdxKUIlLGZxDiNfCXLfX2zaOFKkTJWDw3rreEcar4AxxWKtVY66FUHgyDQfWCX4AH8auOpaAPB0 [facility] Work Phone: pathology report relevant history Narrative w9hbgNMhWBQdwNGoBMIuE1sckxKbGARdyNYcU3HtpncpWZsyCC8dEC6hlFjztYSutDLpKIVtVuXoe9qn s742hTQxk0idLZKMcskg cRi9lMyiB62pb7D1HvpuQ1gfPTTyXSfoMPMcVCvzwZMcZEr5SKZcfHUzbvOwGqReOKSrnSIjeUM3YYKm EZ8marlwPSdtOWbeWTZc eoX0JUFhqUTtG7VrDLCgRC4pxztwOFQ2VJvdTDIlSWP6SsNlOCGpn7Jmayj5BxXneQZzKYoxiXYbcuvk czIwXGNmMSBQcmltYXJ5 IB2vhXigirWeiSRvBZThv3NgAJ4rktycDOGvNP0nuBTdnSDtTrKyiK4yAK22bPMzGHHfhIwuZBcYX0Ie OM7lK9XuVGEjfAKxkM==LnvcflivgbJ.[facility]. [facility] Work Phone: [facility] Work Phone: eNDOSCOPIC ULTRASOUND (UPPER)on [id number] ULTRASOUND (UPPER)Table formatting from the original result was not [...] and patient medication allergies have been reviewed. Thepatient's tolerance of previous anesthesia has been reviewed. [...] radial scope was introduced through the mouth andadvanced to the second part of the duodenum. [...] EXAM Mayelin Page 10/07/2023 [address] [facility] [address] [facility] [address] [place] [address], [facility] [address] [place] [address] Procedure Provider Jeremiah Magaña MDMercy Health St. Vincent Medical CenterEndoscopic Ultrasound (Upper)on 28-21-2430Fdqip formatting from the original result was not [...] EXAM Mayelin Page 10/07/2023 [address] [facility] [address] [facility] [address] [place] [address], [place] [address] [place] [address] Procedure Provider Jeremiah Magaña MD [facility] Work Phone: [facility] Work Phone: Radiology Study observation (narrative)[facility] Work Phone: Glucose Test strip manual (Bld) [Mass/Vol]on 06-69-0476Ojssjzb [Mass/Vol]149 mg/qQVuzd30 - 99 mg/dLJ.W. Ruby Memorial HospitalInterpretation and review of laboratory resultsAbnormalUniKettering Health Greene MemorialUnSelect Medical TriHealth Rehabilitation HospitalUnSelect [facility] Tri[facility] Rehabilitation HospitalGlucose [Mass/Vol]149 mg/oQXfno08-49GrnjkuqgoiWVUMedicine Harrison Community HospitalComment on above:Performed By: #### [id number] #### OLIMPIA WARE ([id number]) [facility] ([facility]) [id number] [place], [place] [id number] pathology studyon 01-91-7758Jlsynami pathology study Pathology report.total SEE COMMENT Surgical Pathology Case: [id number] Authorizing Provider: Jeremiah Magaña MD Collected: 10/07/2023810 Ordering Location: [facility] Received: 10/07/2023 0942 Pathologist: Gilda Butterfield Asa, [...] cm in aggregate. The specimen is submitted intoto in 2 cassettes. [facility] LAB AP ASR DISCLAIMER One or more of the reagents used to perform assays on this specimen MAY have contained components considered to be analyte specific reagents (ASR's). ASR's have not been cleared or approved by the U.S. Food and Drug Administration. These assays were developed and their performance characteristics determined by the Department of Pathology at [facility]. The FDA does not require this test to go through premarket FDA review. This test is used for clinical purposes. It should not be regarded as investigational or for research. This laboratory is certified under the Clinical Laboratory Improvement Amendments (CLIA) as qualified to perform high complexity clinical laboratory testing. The assays were performed with appropriate positive and negative controls which stained appropriately.[facility] CULTUREon [id number] identified Cx Nom (U) MICROBIOLOGY REPORT [facility], [address] [place] [address], [place], [address] PATIENT: YUSEF CAR LOCATION: [facility] - - : 1950 AGE: 73 SEX: M ADM: 07/31/23 Att. Physician: PHYSICIAN, NON-STAFF Order Id: [id number] Req. Physician: PHYSICIAN, NON-STAFF Source: urine, clean catch Site: Collected: 07/31/23 11:50 Current Antibiotics: not stated Antibiotics comment: Slime [place] T [place] - Source of Urine Collection? Urine clean catch STATUS OF ORDERED AND REPORTED TESTS URINE CULTURE FINAL 08/02/23 URINE CULTURE FINAL 08/02/23 07:56 08/01/23 No growth-preliminary 08/02/23 No growthNormalSaint Clearwater Valley Hospitaltudy Interpretation of outside studyon [id number] is no result for this study. This is a placeholder for comparison films only.[facility] Study observation Narrativeon 92-31-3905Twama formatting from the original result was not [...] EXAM Mayelin Page 06/10/2023 [address] [facility] [address] [facility] [id number] Referring Provider Jazlyn Mcarthur, Balance Truing Inspector-acupuncture physician [address] [place] [place] [address] Procedure Provider Vic Mcrae MD [facility] Work Phone: [facility] Work Phone: Radiology Study observation (narrative)[facility] Work Phone: Glucose Test strip manual (Bld) [Mass/Vol]on 47-66-0971Rlpmyal [Mass/Vol]113 mg/eJEjep47 - 99 mg/dLUnSelect Medical TriHealth Rehabilitation HospitalInterpretation and review of laboratory resultsAbnormalUniversUnion HospitalUnSelect Medical TriHealth Rehabilitation HospitalCT Chest and Abdomen and Pelvis W contrast Kristie 85-47-1544UUBWN: 1. Nodule superior segment left lower lobe. 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 COMPARISON: CT abdomen 12/25/2020 ACCESSION NUMBER(S): [id number] ORDERING CLINICIAN: JAZLYN MCARTHUR TECHNIQUE: Contiguous axial [...] The no aneurysm. The IVC is unremarkable. PERITONEUM/RETROPERITONEUM/LYMPH NODES: There is no free intraperitoneal air or free fluid identified. No gross mesenteric or retroperitoneal lymphadenopathy is identified. A 1.5 cm left external iliac lymph node is unchanged in size and shape from 01/11/2021. BONE AND SOFT TISSUE: No aggressive bone lesion. Degenerative changes of the lumbar spine and the sacroiliac joints are present. A small fat containing umbilical hernia is present. 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 COMPARISON: CT abdomen 12/25/2020 ACCESSION NUMBER(S): [id number] ORDERING CLINICIAN: JAZLYN MCARTHUR TECHNIQUE: Contiguous axial [...] The no aneurysm. The IVC is unremarkable. PERITONEUM/RETROPERITONEUM/LYMPH NODES: There is no free intraperitoneal air [...] Juanjose Walters 05/27/2023 11:47 AM Dictation workstation: [id number] [facility] Work Phone: CT Chest and Abdomen and Pelvis W contrast IVOrdered By: Juanjose Walters on [id number] Medical TriHealth Rehabilitation Hospital Work Phone: cT Chest and Abdomen and Pelvis W contrast Kristie 59-54-8522Gwaoerznq Study observation (narrative)[facility] Work Phone: CBC AND DIFFERENTIALon 05-12-2022% AUTOMATED IMMATURE GRANCanceledNormalSt. [facility]landsComh[facility] on above:Order Comment: TEST CBC AND DIFFERENTIAL WAS CANCELLED, 05/12/2022 10:[address] ciaran mcmanus needed.Result Comment: Immature Granulocyte Count (IG) includes promyelocytes, myelocytes and metamyelocytes but does not include bands. Percent differential counts (%) should be interpreted in the context of the absolute cell counts (cells/L).Performed By: #### CBCDF #### [address] [place] [address]% BASOPHILCanceledNormalSt. [facility] HighlandsComhuron valley-[facility] hospital on above:Order Comment: TEST CBC AND DIFFERENTIAL WAS CANCELLED, 05/12/2022 10:[address] ciaran mcmanus needed.Performed By: #### CBCDF #### [address] [place] [address]% EOSINOPHILCanceledNormalSt. [facility]landsComh[facility] on above:Order Comment: TEST CBC AND DIFFERENTIAL WAS CANCELLED, 05/12/2022 10:[address] ciaran mcmanus needed.Performed By: #### CBCDF #### [address] [place] [address]% LYMPHOCYTECanceledNormalSt. [facility]Comh[facility] on above:Order Comment: TEST CBC AND DIFFERENTIAL WAS CANCELLED, 05/12/2022 10:[address] ciaran mcmanus needed.Performed By: #### CBCDF #### [address] [place] [address]% MONOCYTECanceledNormalSt. [facility]Comh[facility] on above:Order Comment: TEST CBC AND DIFFERENTIAL WAS CANCELLED, 05/12/2022 10:[address] mohmand doesnot needed.Performed By: #### CBCDF #### [address] [place] [address]% NEUTROPHILCanceledNormalSt. [facility]landsComh[facility] on above:Order Comment: TEST CBC AND DIFFERENTIAL WAS CANCELLED, 05/12/2022 10:[address] ciaran mcmanus needed.Performed By: #### CBCDF #### [address] [place], [place] [address]PTYIIZMZMyqxamxbPkqyftUw. [facility] on above: Order Comment: TEST CBC AND DIFFERENTIAL WAS CANCELLED, 05/12/2022 10:[address] ciaran mcmanus needed.Performed By: #### CBCDF #### [address] [place], [place] [address]NITYCZEKTLUCUzwfhffgIjdyleMd. [facility] on above:Order Comment: TEST CBC AND DIFFERENTIAL WAS CANCELLED, 05/12/2022 10:[address] ciaran mcmanus needed.Performed By: #### CBCDF #### [address] [place], [place] [address]BTXWTJGVTONehlzhepAyvvvcVo. [facility] on above:Order Comment: TEST CBC AND DIFFERENTIAL WAS CANCELLED, 05/12/2022 10:[address] ciaran mcmanus needed.Performed By: #### CBCDF #### [address] [place], [place] [address]DLOXrxefteuCvfvirCo. [facility] on above:Order Comment: TEST CBC AND DIFFERENTIAL WAS CANCELLED, 05/12/2022 10:[address] ciaran mcmanus needed.Performed By: #### CBCDF #### [address] [place], [place] [address]MEDJfbqyinqHckbedOu. [facility] on above:Order Comment: TEST CBC AND DIFFERENTIAL WAS CANCELLED, 05/12/2022 10:[address] ciaran mcmanus needed.Performed By: #### CBCDF #### [address] [place], [place] [address]HSPEXRPIDLMamiebnvKslrifTf. [facility] HighlandsComment on above:Order Comment: TEST CBC AND DIFFERENTIAL WAS CANCELLED, 05/12/2022 10:[address] ciaran mcmanus needed.Performed By: #### CBCDF #### [address] [place], [place] [address]QCZPDxjregksXuvkxbWx. [facility]landsComment on above: Order Comment: TEST CBC AND DIFFERENTIAL WAS CANCELLED, 05/12/2022 10:[address] ciaran mcmanus needed.Performed By: #### CBCDF #### [address] [place], [place] [address]CCMZdkaormjXcvztrKt. [facility]landsComment on above:Order Comment: TEST CBC AND DIFFERENTIAL WAS CANCELLED, 05/12/2022 10:[address] ciaran mcmanus needed.Performed By: #### CBCDF #### [address] [place], [place] [address]LUHNQQXCHyjdbrwoHotohpRt. [facility]landsComment on above: Order Comment: TEST CBC AND DIFFERENTIAL WAS CANCELLED, 05/12/2022 10:[address] ciaran mcmanus needed.Performed By: #### CBCDF #### [address] [place], [place] [address]LQKXIQVUYXDocwksgjNnjyajOp. [facility] on above:Order Comment: TEST CBC AND DIFFERENTIAL WAS CANCELLED, 05/12/2022 10:[address] ciaran mcmanus needed.Performed By: #### CBCDF #### [address] [place], [place] [address]XBSFnjwgpfwMtjogjYn. [facility] on above:Order Comment: TEST CBC AND DIFFERENTIAL WAS CANCELLED, 05/12/2022 10:[address] ciaran mcmanus needed.Performed By: #### CBCDF #### [address] [place], [place] [address]SPBQgdckezxKaqdarHc. [facility]landsComment on above:Order Comment: TEST CBC AND DIFFERENTIAL WAS CANCELLED, 05/12/2022 10:[address] ciaran mcmanus needed.Performed By: #### CBCDF #### [address] [place], [place] [address]CWB-JNHjaxvyihQckkxgIz. [facility]landsComment on above: Order Comment: TEST CBC AND DIFFERENTIAL WAS CANCELLED, 05/12/2022 10:[address] ciaran mcmanus needed.Performed By: #### CBCDF #### [address] [place], [place] [address]UJGAftdafhhBhcomcWb. [facility]landsComment on above:Order Comment: TEST CBC AND DIFFERENTIAL WAS CANCELLED, 05/12/2022 10:[address] ciaran mcmanus needed.Performed By: #### CBCDF #### [address] [place], [place] [address]HMYKFQSVWLIFT PANELon 70-60-7796VDMKKVRXubyyvqbSmhznlJe. [facility]landsComment on above:Order Comment: TEST COMPREHENSIVE PANEL WAS CANCELLED, 05/12/2022 10:[address] ciaran mcmanus needed.Performed By: #### CMP #### [address] [place], [place] [address]NSFFMECF PHOSPHATASECanceledNormalSt. [facility] Comment on above:Order Comment: TEST COMPREHENSIVE PANEL WAS CANCELLED, 05/12/2022 10:[address] ciaran mcmanus needed.Performed By: #### CMP #### [address] [place], [place] [address]AMEOtmxcpmuIubzqjBx. [facility]landsComment on above:Order Comment: TEST COMPREHENSIVE PANEL WAS CANCELLED, 05/12/2022 10:[address] ciaran mcmanus needed.Result Comment: Patients treated with Sulfasalazine may generate falsely decreased results for ALT.Performed By: #### CMP #### [address] [place], [place] [address]BKTWP GAPCanceledNormalSt. Uab Hospital HighlandsComment on above:Order Comment: TEST COMPREHENSIVE PANEL WAS CANCELLED, 05/12/2022 10:[address] ciaran mcmanus needed.Performed By: #### CMP #### [address] [place], [place] [address]VDNUfsxkxbuRakdcsYm. [facility] on above:Order Comment: TEST COMPREHENSIVE PANEL WAS CANCELLED, 05/12/2022 10:[address] wagoner doesngustabo needed.Performed By: #### CMP #### [address] [place], [place] [address]JPZSKJTYVJPJudcrfdyShjarqXb. [facility] on above:Order Comment: TEST COMPREHENSIVE PANEL WAS CANCELLED, 05/12/2022 10:[address] ciaran mcmanus needed.Performed By: #### CMP #### [address] [place], [place] [address]PSODEPNLV,TOTALCanceledNormalSt. [facility]Com[facility] on above:Order Comment: TEST COMPREHENSIVE PANEL WAS CANCELLED, 05/12/2022 10:[address] ciaran mcmanus needed.Performed By: #### CMP #### [address] [place], [place] [address]QTQZONZQwopznqjRcweohOk. [facility] on above: Order Comment: TEST COMPREHENSIVE PANEL WAS CANCELLED, 05/12/2022 10:[address] ciaran mcmanus needed.Performed By: #### CMP #### [address] [place], [place] [address]NUEARWLXUnztgjguZaywacZd. [facility] on above: Order Comment: TEST COMPREHENSIVE PANEL WAS CANCELLED, 05/12/2022 10:[address] wagoner doesngustabo needed.Performed By: #### CMP #### [address] [place], [place] [address]RVPIYDSPKVHzdjxzxpBfkutvGr. [facility] on above:Order Comment: TEST COMPREHENSIVE PANEL WAS CANCELLED, 05/12/2022 10:[address] ciaran mcmanus needed.Performed By: #### CMP #### [address] [place], [place] [address]sFSR FEMALECanceledNormalSt. [facility] Hospital HighlandsComment on above:Order Comment: TEST COMPREHENSIVE PANEL WAS CANCELLED, 05/12/2022 10:[address] ciaran mcmanus needed.Result Comment: CALCULATIONS OF ESTIMATED GFR ARE PERFORMED USING THE 2020 CKD-EPI STUDY REFIT EQUATION WITHOUT THE RACE VARIABLE FOR THE IDMS-TRACEABLE CREATININE METHODS. https://jasn.asnjournals.org/content/early/ASN.8355698733Uagjxmnph By: #### CMP #### [address] [place], [place] [address]xERJ MALECanceledNormalSt. [facility] Hospital HighlandsComment on above:Order Comment: TEST COMPREHENSIVE PANEL WAS CANCELLED, 05/12/2022 10:[address] wagoner doesngustabo needed.Result Comment: CALCULATIONS OF ESTIMATED GFR ARE PERFORMED USING THE 2020 CKD-EPI STUDY REFIT EQUATION WITHOUT THE RACE VARIABLE FOR THE IDMS-TRACEABLE CREATININE METHODS. https://jasn.asnjournals.org/content/early/ASN.7048738021Helmhjkxd By: #### CMP #### [address] [place], [place] [address]NBKELHBZicfyihyMbddjdKu. [facility]landsComment on above: Order Comment: TEST COMPREHENSIVE PANEL WAS CANCELLED, 05/12/2022 10:[address] wagoner doesngustabo needed.Performed By: #### CMP #### [address] [place], [place] [address]YHVLHKJYBQsfxgucbWuzoulXz. [facility] on above:Order Comment: TEST COMPREHENSIVE PANEL WAS CANCELLED, 05/12/2022 10:[address] ciaran mcmanus needed.Performed By: #### CMP #### [address] [place], [place] [address]SKKKSKGdpeshqoBwdqbgAf. [facility]landsComment on above: Order Comment: TEST COMPREHENSIVE PANEL WAS CANCELLED, 05/12/2022 10:[address] wagoner doesngustabo needed.Performed By: #### CMP #### [address] [place], [place] [address]VZXGE PROTEINCanceledNormalSt. [facility] on above:Order Comment: TEST COMPREHENSIVE PANEL WAS CANCELLED, 05/12/2022 10:[address] wagoner doesngustabo needed.Performed By: #### CMP #### [address] [place], [place] [address]EXZH NITROGENCanceledNormalSt. [facility]landsComment on above:Order Comment: TEST COMPREHENSIVE PANEL WAS CANCELLED, 05/12/2022 10:[address] ciaran mcmanus needed.Performed By: #### CMP #### [address] [place], [place] [address]Vfkqbj Note - Heme Onc-Follow Up Visiton [id number] Note - Heme Onc-Follow Up VisitPatient Visit Information: Visit Type: Follow Up Visit History of Present Illness: ID Statement: YUSEF CAR is a 72 year old Male Chief Complaint: Duodenal neuroendocrine tumor Interval History: 71 years old gentleman from [place], [place] who has been referred to me from [facility]. The patient complained of acid reflux [...] Weights & Heights: Date: Weight/Scale Type:Height: 26-Aug-2021 13:27336 kg / standing vaiwi323.8 cm 20-May-2021 12:75116 kg / standing goxeq853.8 cm 04-Feb-2021 09:82156 kg / standing fozqy681.8 cm Physical Exam: Constitutional: Appears well and [...] BUN CREAT 26-Aug-2021 1 (more content not included)...[facility] - Intakeon [id number] Note - IntakePatient Visit Information: Visit TypeFollow Up Visit Source [...] 3 Weights & HeightsDate: Weight/Scale Type:Height: 26-Aug-2021 13:22968 kg / standing kymlx075.8 cm 20-May-2021 12:96949 kg / standing ifeii224.8 cm SpO2 (%)94 % SpO2 Patient Onroom [...] falls riskimplement environmental risk factors interventions Spiritual/Procedural: Spiritual/cultural/jewish practices important for us to knowno Alcohol, prescription or recreational drugs taken this AM for non medical reasonsno Electronic Signatures: Kindra Maher (PCNA) (Signed 12-May-2022 09:56) Authored: Patient Visit Information, Vital Signs, Allergies, Outpatient Medication Profile, Notification, Travel History, Falls, Spiritual/Procedural Last Updated: 12-May-2022 09:56 by Kindra Maher (PCNA)[facility] HealthcareGLUCOSE-POCTon [id number] [Mass/Vol]139 mg/nWGgkm10 - 99. [facility]landsComment on above:Performed By: #### GLUPO #### [facility] [address] [place], [place] [address]Kucirtciio - Chemistry and Chemistry - challengeon 04-29-2022 Glucose [Mass/Vol]139 mg/dLabove high - 99ME[facility] Work Phone: No Panel Informationon [id number] Health-[facility]town Work Phone: [email or web address] Work Phone: [phone]-MuqiUnityPoint Health-[facility]town Work Phone: Order Reconciliationon [id number] Reconciliation Page 1 Discharge Reconciliation Document Reconciliation [...] oral tablet 1 tab(s) orally once a dayNormalSt. [facility] Surgical Pathology Departmenton [id number] Surgical Pathology DepartmentName YUSEF CAR Pathologist: DU LUGO Date of Procedure: 04/29/2022 Date Received: 04/29/2022 Date Reported 05/05/2022 Submitting Physician: JEREMIAH MAGAÑA MD Location: [facility] Copy To/Referring/Attending: VANESSA STEELE MD Other External [...] reviewed this case. Diagnostic interpretation performed at [facility] [address] [place] [address] Clinical History: Follow up history of duodenal [...] positive and negative controls which stained appropriately. [facility] Department of Pathology [id number] [place] [id number]. Anthony Summit Medical CenterComment on above:Performed By: #### [facility] #### [facility] Surgical Pathology Department [address] [place] [id number] GI endoscopyon 22-89-7681Opzzz GI endoscopyPATIENTNAME Patient Name: Yusef Car EXAMDATE Procedure Date: 04/29/2022 7:25 AM PATIENTID PATIENTACCOUNTNUM PATIENTDOB Date of : 1950 ADMITTYPE Admit Type: Outpatient PATIENTROOM Site: [facility] 1 ETHNICITY Ethnicity: Not or RACE Race: White PROVDR Attending MD: Jeremiah Magaña MD, [id number] ENDOPROCEDURENAME Procedure: Upper GI endoscopy INDICATION Indications: [...] (Doctor), Martha Kyle RN (Nurse), Moi Huff, Reworker EDREFPROVIDER Referring: Vanessa Steele CURRENT_MEDS Medicines: See [...] diet. 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 All rights reserved. The codes documented in this report are preliminary and upon per diem physical therapist review may be revised to meet current compliance requirements. ATTDRPART Attending Participa (more content not included)...[facility] HealthcareGeneral/Metabolic - Establishedon 75-83-6652Ftlcfhw/Metabolic - EstablishedPatient Discussion/Summary - You received a copy of [...] history, the 84 gene Multi-Cancer Panel from [employer] wasrecommended and ordered. - I called him to [...] for pancreatic cancer, and it is generally offeredonly to those who meet CAPS5 criteria which [...] diagnoses is always evolving, so there may beadditional testing recommended in the future. He can contact us in 2-3 years to determine if there have been any changes since our discussion today. Lulu Calle, , [facility] Licensed Genetic Counselor [employer] [employer] [phone]. Chief Complaint Patient seen for discussion of [...] BEFORE MEALS AND AT BEDTIME. Time Time Stamp_UH: Time spent with patient: 8 minutes of which greater than 50 percent was spent counseling and or coordinating care. Signatures Electronically signed by : ANT Noonan; Dec 05 2021 2:49PM EST (Author) Electronically signed by : Skye Santos MD; Dec 05 2021 3:54PM EST (Review) [facility] TouchworksOffice Visit (Genetics)on 32-80-6870Sjdcjz-up visitPatient Discussion/Summary Mr. CAR is a 71 year old male with a personal history of duodenal neuroendocrine cancer. Based on his family history, Mr. CAR meets NCCN criteria for testing of the BRCA1 and BRCA2 genes. 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 He is interested in testing, which is recommended, and was ordered today via the 84-gene Multi-Cancer + RNA analysis panel from [employer]. Our discussion is summarized below. We reviewed genes and chromosomes, inherited forms of cancer, and the MEN1 gene causing Multiple Endocrine Neoplasia type 1 (MEN1). We discussed that most cancers are not due to an inherited genetic susceptibility. However, in about 5- 10% of families, there is an inherited genetic mutation that canmake a person more susceptible to developing certain forms of cancer. Within these families, we often see multiple family members with cancer, occurring in multiple generations. In addition, earlier onset and bilateral cancers are suggestive of an inherited form of cancer. Finally, there is a clustering of certain types of cancer or tumors in these families, such as pancreatic and neuroendocrine t umors. We discussed the MEN1 gene, which is related to MEN1 and has been linked to neuorendocrine tumors (primarily of the foregut which includes the duodenum). Changes in this gene (sometimes referred to as mutations) are inherited in a dominant pattern and confer increased risks for parathyroid tumors (which are present in 100% of affected individuals by age 50, typically in the 20s), pituitary tumors(in 30-40% of affected individuals), and endocrine tumors of the wmhpvp-ecgzwd-ygszyavzzf (GEP) tract. Clinically, MEN1 is diagnosed when [...] cancer syndromes that we are aware of, butcannot clear him for any/all cancer predisposition risks. He would continue to be screened based onhis personal and family history. 3. Variant of [...] with 15 employees or greater) and health insurancecompanies (barring and other insurances) are forbidden to ask for and use genetic information against another person. As such, health insurance companies cannot ask for genetic information and use findings affect coverage or rates. However, luxury insurances such as life insurance,[place] [facility] care insurance, and/or private disability insurance companies are not forbidden against using genetic information when an individual takes out a new/additional policy in one of those areas.As such, for unaffected individuals it could be beneficial to explore/take out policies in luxury insurance areas PRIOR to undergoing genetic testing. This would mainly be of concern for unaffected members of the family such as his children or brother if they elect to test at a later time. Mr. CAR was counseled about hereditary ca (more content not included)... [facility] Note - Heme Onc-Follow Up Visiton 36-44-3993Pjneih Note - Heme Onc-Follow Up VisitPatient Visit Information: Visit Type: Follow Up Visit History of Present Illness: ID Statement: Mr. Car is a 71 year old male Chief Complaint: Duodenal neuroendocrine tumor Interval History: 71 years old gentleman from [place], [place] who has been referred to me from [facility]. The patient complained of acid reflux [...] Weights & Heights: Date: Weight/Scale Type:Height: 26-Aug-2021 13:41662 kg / standing .8 cm 20-May-2021 12:61337 kg / standing pemsk798.8 cm 04-Feb-2021 09:59042 kg / standing aizgw393.8 cm Physical Exam: Constitutional: Appears well and [...] Transaminase, Serum 13 Complet (more content not included)...NormalSaint Barnabas Behavioral Health CenterClinic Note - Intakeon 82-76-3914Guxrdr Note - IntakePatient Visit Information: Visit TypeFollow Up Visit Source of Informationpatient Accompanied byspouse Admission Information: Admission Since Last VisitYes [facility] [id number] Admission Reason/Detailssepsis and removal of gall bladder [...] 3 Weights & HeightsDate: Weight/Scale Type:Height: 20-May-2021 12:50358 kg / standing huxdo993.8 cm 04-Feb-2021 09:68738 kg / standing utoud943.8 cm 07-Jan-2021 13:26050 kg / standing .8 cm SpO2 (%)95 % SpO2 Patient Onroom [...] Last Updated: 26-Aug-2021 13:50 by Latanya Bhat (PCNA)[facility] HealthcareCULTURE BLOODon 90-78-0430Bdhwydswosx examination of blood, cultureCulture Observations: Klebsiella pneumoniae in aerobic bottle. Culture [...] <=0.25 S F Levofloxacin <=0.12 S F Trimethoprim/Sulfamethoxazole <=20 S FNormalThe Marymount HospitalComment on above:Performed By: #### CBCMAN #### [facility] [address] [place] [address] Dr. Freda Romero AUTO DIFFon 25-88-3610MNDW #0.0 103/ulNormal0.0-0.1The Marymount HospitalComment on above:Performed By: #### POCGLUC #### [facility] [address] [place] [address] José Luis KarenBasophils/100 WBC (Bld)0.1 %Critically low0.2-2.0The Marymount HospitalComment on above:Performed By: #### POCGLUC #### [facility] [address] [place], [place] [address] José Luis KarenEO #0.0 103/ulNormal0.0-0.7The Marymount HospitalComment on above: Performed By: #### POCGLUC #### [facility] [address] [place] [address] José Luis KarenEosinophils/100 WBC (Bld)0.0 %Critically low0.9-7.0The Marymount HospitalComment on above:Performed By: #### POCGLUC #### [facility] [address] [place] [address] José Luis KarenErythrocyte distribution width (RBC) [Ratio]15.1 %Critically high 11.0-15.0The [facility]mount HospitalComment on above:Performed By: #### POCGLUC #### [facility] [address] [place] [address] José Luis KarenHematocrit (Bld) [Volume fraction]34.7 %Critically low42.0-54.0The [facility] HospitalComment on above:Performed By: #### POCGLUC #### [facility] [address] [place] [address] José Luis KarenHemoglobin (Bld) [Mass/Vol]10.9 g/dLCritically low14.0-18.0The [facility] HospitalComment on above:Performed By: #### POCGLUC #### [facility] [address] [place] [address] José Luis KarenIG #0.04 10e3/ulCritically high0.00-0.03The [facility] HospitalComment on above:Performed By: #### POCGLUC #### [facility] [address] [place] [address] José Luis KarenIG %0.4 %Normal0.0-0.5The [facility] HospitalComment on above: Performed By: #### POCGLUC #### [facility] [address] [place] [address] José Luis KarenLYMPH #0.5 103/ulCritically low1.2-3.8The [facility] HospitalComment on above:Performed By: #### POCGLUC #### [facility] [address] [address] José Luis KarenLymphocytes/100 WBC (Bld)5.5 %Critically low20.5-60.0Comment on above:Performed By: #### POCGLUC #### [facility] [address] [place] [address] José Luis KarenMANUAL DIFF REQNONormalThe [facility]mount HospitalComment on above: Performed By: #### POCGLUC #### [facility] [address] [place] [address] José Luis KarenMCH (RBC) [Entitic mass]28.2 cxQqucvs87.9-34.0 Comment on above:Performed By: #### POCGLUC #### [facility] [address] [place] [address] José Luis KarenMCHC (RBC) [Mass/Vol]31.4 g/qMGxmgvw28.9-35.2 Comment on above:Performed By: #### POCGLUC #### [facility] [address] [place] [address] José Luis KarenMCV (RBC) [Entitic vol]89.9 iCFuoxfd34.0-94.0 Comment on above:Performed By: #### POCGLUC #### [facility] [address] [place] [address] José Luis KarenMONO #0.9 103/ulCritically high0.3-0.8The [facility] HospitalComment on above:Performed By: #### POCGLUC #### [facility] [address] [place] [address] José Luis KarenMonocytes/100 WBC (Bld)9.4 %Normal1.7-12.0 Comment on above:Performed By: #### POCGLUC #### [facility] [address] [place] [address] José Luis KarenNEUT #8.1 103/ulCritically high1.4-6.5The [facility] HospitalComment on above:Performed By: #### POCGLUC #### [facility] [address] [address] José Luis KarenNeutrophils/100 WBC (Bld)84.6 %Critically high43.0-75.0The [facility] HospitalComment on above:Performed By: #### POCGLUC #### [facility] [address] [place] [address] José Luis KarenPlatelet mean volume (Bld) [Entitic vol]10.5 fLNormal9.5-13.5The [facility] HospitalComment on above:Performed By: #### POCGLUC #### [facility] [address] [place] [address] José Luis UmstlFNN571 103/jkOdungv560-221Eyf [facility] HospitalComment on above: Performed By: #### POCGLUC #### [facility] [address] [place] [address] José Luis KarenRBC3.86 106/ulCritically low4.70-6.10The [facility] HospitalComment on above:Performed By: #### POCGLUC #### [facility] [address] [place] [address] José Luis KarenWBC9.6 103/ulNormal4.0-11.0The [facility] HospitalComment on above: Performed By: #### POCGLUC #### [facility] [address] [place] [address] José Luis KarenCULTURE BLOODon 24-17-5445Jrnlzpwyzxg examination of blood, culture Culture Observations: NO GROWTH AT 5 DAYS.NormalThe Marymount HospitalComment on above:Performed By: #### CBCMAN #### [facility] [address] [place] [address] Dr. Freda WaynePOINT OF CARE GLUCOSEon 21-28-0144Rrpeikd [Mass/Vol]192 mg/dL Critically mnrb16-347Bzv [facility] HospitalComment on above:Performed By: #### POCGLUC #### [facility] [address] [place] [address] Dr. Freda WaynePROF 14(COMP METB)on 50-45-3262Qkacotx [Mass/Vol]2.6 g/dL Critically low3.5-5.0Comment on above:Performed By: #### POCGLUC #### [facility] [address] [id number] José Luis KarenAlbumin/Globulin [Mass ratio]0.7 {ratio}Normal Comment on above:Performed By: #### POCGLUC #### [facility] [address] [address] José Luis KarenALP [Catalytic activity/Vol]233 U/LCritically etmk07-692Coh [facility] HospitalComment on above:Performed By: #### POCGLUC #### [facility] [address] [address] José Luis KarenALT [Catalytic activity/Vol]103 U/LCritically sctj44-92Uvy [facility] HospitalComment on above:Performed By: #### POCGLUC #### [facility] [address] [address] José Luis KarenAnion gap [Moles/Vol]12.2 mmol/LNormalThe Marymount HospitalComment on above:Performed By: #### POCGLUC #### [facility] [address] [place] [address] José Luis KarenAST [Catalytic activity/Vol]44 U/TVslxur64-18Yuj Comment on above:Performed By: #### POCGLUC #### [facility] [address] [address] José Luis KarenBilirubin [Mass/Vol]0.4 mg/dLNormal0.2-1.3TKettering Health Dayton Comment on above:Performed By: #### POCGLUC #### [facility] [address] [place] [address] José Luis KarenCalcium [Mass/Vol]9.0 mg/dLNormal8.4-10.2 Comment on above:Performed By: #### POCGLUC #### [facility] [address] [address] José Luis KarenChloride [Moles/Vol]102 mmol/GUochdf73-689Rrj Comment on above:Performed By: #### POCGLUC #### [facility] [address] [address] José Luis KarenCO2 [Moles/Vol]26.9 mmol/LAcxpdu58.0-30.0The [facility] Comment on above:Performed By: #### POCGLUC #### [facility] [address] [address] José Luis KarenCreatinine [Mass/Vol]1.22 mg/dLNormal0.66-1.25The [facility] Comment on above:Performed By: #### POCGLUC #### [facility] [address] [address] José Luis KarenEGFR-AF NIGERIEN>60Normal>=60The [facility] HospitalComment on above: Performed By: #### POCGLUC #### [facility] [address] [address] José Luis KarenEGFR-NON AF XIHKGEKD04 mL/min/1.18i2Heilevxrlr low>=60The [facility] HospitalComment on above:Performed By: #### POCGLUC #### [facility] [address] [address] José Luis KarenGlobulin (S) [Mass/Vol]3.6 g/dLNormalThe [facility]mount HospitalComment on above:Performed By: #### POCGLUC #### [facility] [address] [address] José Luis KarenGlucose [Mass/Vol]152 mg/dLCritically debt99-095Qhu [facility] HospitalComment on above:Performed By: #### POCGLUC #### [facility] [address] [address] José Luis KarenPotassium [Moles/Vol]4.1 mmol/LNormal3.4-5.0The [facility] Comment on above:Performed By: #### POCGLUC #### [facility] [address] [address] José Luis KarenProtein [Mass/Vol]6.2 g/dLNormal6.1-8.2The [facility] HospitalComment on above:Performed By: #### POCGLUC #### [facility] [address] [address] José Luis KarenSodium [Moles/Vol]137 mmol/FFhwgyq116-149Sdn [facility] Comment on above:Performed By: #### POCGLUC #### [facility] [address] [address] José Luis KarenUrea nitrogen [Mass/Vol]12.0 mg/dLNormal9.0-20.0The [facility] HospitalComment on above:Performed By: #### POCGLUC #### [facility] [address] [place] [address] José Luis KarenUrea nitrogen/Creatinine [Mass ratio]9.8 mg/mgNormalThe [facility]mount HospitalComment on above:Performed By: #### POCGLUC #### [facility] [address] [place] [address] José Luis KarenCBC AUTO DIFFon 93-90-7853CUXP #0.0 103/ulNormal0.0-0.1The [facility] HospitalComment on above:Performed By: #### POCGLUC #### [facility] [address] [place] [address] Dr. Freda WayneBasophils/100 WBC (Bld)0.2 %Normal0.2-2.0The [facility] Comment on above:Performed By: #### POCGLUC #### [facility] [address] [place] [address] Dr. Freda Velasco #0.0 103/ulNormal0.0-0.7The [facility] HospitalComment on above: Performed By: #### POCGLUC #### [facility] [address] [place] [address] Dr. Freda Bergmanosinophils/100 WBC (Bld)0.4 %Critically low0.9-7.0The [facility] HospitalComment on above:Performed By: #### POCGLUC #### [facility] [address] [place] [address] Dr. Freda Bergmanrythrocyte distribution width (RBC) [Ratio]15.4 %Critically high 11.0-15.0The Lady HospitalComment on above:Performed By: #### POCGLUC #### [facility] [address] [place] [address] Dr. Freda WayneHematocrit (Bld) [Volume fraction]35.5 %Critically low42.0-54.0 The [facility] HospitalComment on above:Performed By: #### POCGLUC #### [facility] [address] [place] [address] Dr. Freda WayneHemoglobin (Bld) [Mass/Vol]11.5 g/dLCritically low14.0-18.0Comment on above:Performed By: #### POCGLUC #### [facility] [address] [place] [address] Dr. Freda Yancey #0.04 10e3/ulCritically high0.00-0.03 Comment on above:Performed By: #### POCGLUC #### [facility] [address] [place] [address] Dr. Freda Yancey %0.4 %Normal0.0-0.5The [facility] HospitalComment on above: Performed By: #### POCGLUC #### [facility] [address] [place] [address] Dr. Freda Rasheed #0.7 103/ulCritically low1.2-3.8ThSelect Medical Specialty [facility] Comment on above:Performed By: #### POCGLUC #### [facility] [address] [place] [address] Dr. Freda Castanedahocytes/100 WBC (Bld)7.4 %Critically low20.5-60.0Comment on above:Performed By: #### POCGLUC #### [facility] [address] [place] [address] Dr. Freda ChaseUAL DIFF REQNONormalThe [facility]mount HospitalComment on above: Performed By: #### POCGLUC #### [facility] [address] [place] [address] Dr. Freda Castro (RBC) [Entitic mass]28.8 umBgaeab10.9-34.0The [facility] HospitalComment on above:Performed By: #### POCGLUC #### [facility] [address] [place] [address] Dr. Freda Land (RBC) [Mass/Vol]32.4 g/dFSegykt38.9-35.2The [facility] HospitalComment on above:Performed By: #### POCGLUC #### [facility] [address] [place] [address] Dr. Freda Land (RBC) [Entitic vol]89.0 bRRenoii72.0-94.0The [facility] HospitalComment on above:Performed By: #### POCGLUC #### [facility] [address] [place] [address] Dr. Freda Martinez #1.1 103/ulCritically high0.3-0.8The [facility] Comment on above:Performed By: #### POCGLUC #### [facility] [address] [place] [address] Dr. Freda Friedocytes/100 WBC (Bld)10.5 %Normal1.7-12.0The [facility] Comment on above:Performed By: #### POCGLUC #### [facility] [address] [place] [address] Dr. Freda Deshpande #8.2 103/ulCritically high1.4-6.5The [facility] Comment on above:Performed By: #### POCGLUC #### [facility] [address] [place] [address] Dr. Freda Yanophils/100 WBC (Bld)81.1 %Critically high43.0-75.0The [facility] HospitalComment on above:Performed By: #### POCGLUC #### [facility] [address] [place] [address] Dr. Freda Haywoodlet mean volume (Bld) [Entitic vol]10.4 fLNormal9.5-13.5The [facility] HospitalComment on above:Performed By: #### POCGLUC #### [facility] [address] [address] [address] Freda WaynePLT262 103/kqMbjzya722-937Ths [facility] HospitalComment on above: Performed By: #### POCGLUC #### [facility] [address] [address] [address] Freda WayneRBC3.99 106/ulCritically low4.70-6.10The [facility] HospitalComment on above:Performed By: #### POCGLUC #### [facility] [address] [address] [address] Freda WayneWBC10.1 103/ulNormal4.0-11.0The [facility] HospitalComment on above:Performed By: #### POCGLUC #### [facility] [address] [place] [address] Dr. Freda WayneCOLUMBUS [facility] GLUCOSEon 14-88-7671Wnfbtdn [Mass/Vol]208 mg/dL Critically lvdu07-219Hut [facility] HospitalComment on above:Performed By: #### POCGLUC #### [facility] [address] [address] [address] Freda WayneGlucose [Mass/Vol]188 mg/dLCritically nghl82-207Eyo [facility] HospitalComment on above:Performed By: #### POCGLUC #### [facility] [address] [place] [address] Dr. Freda WayneGlucose [Mass/Vol]143 mg/dLCritically ouve46-456Bdj [facility] HospitalComment on above:Performed By: #### POCGLUC #### [facility] [address] [place] [address] José Luis KarenPROF 14(COMP METB)on 26-95-5001Uflugdj [Mass/Vol]2.8 g/dLCritically low3.5-5.0The [facility] HospitalComment on above:Performed By: #### POCGLUC #### [facility] [address] [place] [address] José Luis KarenAlbumin/Globulin [Mass ratio]0.8 {ratio}NormalThe [facility] Comment on above:Performed By: #### POCGLUC #### [facility] [address] [id number] José Luis KarenALP [Catalytic activity/Vol]126 U/WXqkkzc54-571Jfh Comment on above:Performed By: #### POCGLUC #### [facility] [address] [address] José Luis KarenALT [Catalytic activity/Vol]109 U/LCritically qlld55-24Twg [facility] HospitalComment on above:Performed By: #### POCGLUC #### [facility] [address] [address] José Luis KarenAnion gap [Moles/Vol]14.4 mmol/LNormalThe [facility] HospitalComment on above:Performed By: #### POCGLUC #### [facility] [address] [address] José Luis KarenAST [Catalytic activity/Vol]42 U/IMistya04-71Zyv Comment on above:Performed By: #### POCGLUC #### [facility] [address] [address] José Luis KarenBilirubin [Mass/Vol]0.7 mg/dLNormal0.2-1.3TKettering Health Dayton Comment on above:Performed By: #### POCGLUC #### [facility] [address] [address] José Luis KarenCalcium [Mass/Vol]8.7 mg/dLNormal8.4-10.2 Comment on above:Performed By: #### POCGLUC #### [facility] [address] [address] José Luis KarenChloride [Moles/Vol]100 mmol/JTkbehv23-003Wiz Comment on above:Performed By: #### POCGLUC #### [facility] [address] [id number] José Luis KarenCO2 [Moles/Vol]26.1 mmol/SNrfvae42.0-30.0 Comment on above:Performed By: #### POCGLUC #### [facility] [address] [address] José Luis KarenCreatinine [Mass/Vol]1.23 mg/dLNormal0.66-1.25The [facility] Comment on above:Performed By: #### POCGLUC #### [facility] [address] [address] José Luis KarenEGFR-AF NIGERIEN>60Normal>=60The [facility] HospitalComment on above: Performed By: #### POCGLUC #### [facility] [address] [address] José Luis KarenEGFR-NON AF WZYZHIDO63 mL/min/1.24n7Rfptewqtta low>=60The [facility]mount HospitalComment on above:Performed By: #### POCGLUC #### [facility] [address] [place] [address] José Luis KarenGlobulin (S) [Mass/Vol]3.5 g/dLNormalThSelect Medical Specialty Hospital - Cincinnati NorthComment on above:Performed By: #### POCGLUC #### [facility] [address] [address] José Luis KarenGlucose [Mass/Vol]139 mg/dLCritically jfkm12-017DftComment on above:Performed By: #### POCGLUC #### [facility] [address] [place] [address] José Luis KarenPotassium [Moles/Vol]3.5 mmol/LNormal3.4-5.0 Comment on above:Performed By: #### POCGLUC #### [facility] [address] [place] [address] José Luis KarenProtein [Mass/Vol]6.3 g/dLNormal6.1-8.2Comment on above:Performed By: #### POCGLUC #### [facility] [address] [place] [address] José Luis KarenSodium [Moles/Vol]137 mmol/YRdaltt366-735Gcm Comment on above:Performed By: #### POCGLUC #### [facility] [address] [place] [address] José Luis KarenUrea nitrogen [Mass/Vol]12.0 mg/dLNormal9.0-20.0The [facility] HospitalComment on above:Performed By: #### POCGLUC #### [facility] [address] [place] [address] José Luis KarenUrea nitrogen/Creatinine [Mass ratio]9.8 mg/mgNormalThe [facility] HospitalComment on above:Performed By: #### POCGLUC #### [facility] [address] [place] [address] José Luis KarenCBC W MANUAL DIFFon [id number] LYMPH #NormalCincinnati [facility] HospitalComment on above:Performed By: #### CBCMAN #### [facility] [address] [place] [address] Dr. Freda PalaciosYPICAL LYMPH %NormalThe [facility] HospitalComment on above: Performed By: #### TAMIKO #### [facility] [address] [place] [address] Dr. Freda Ventura #0.3 103/ulNormal0.0-0.3The [facility] HospitalComment on above:Performed By: #### MERIMAN #### [facility] [address] [place] [address] Dr. Freda Ventura %3 %Normal0-5The [facility] HospitalComment on above:Performed By: #### CBCMAN #### [facility] [address] [place] [address] Dr. Freda Riojas #0.00 103/ulNormal0.00-0.10The [facility] HospitalComment on above:Performed By: #### CBCMAN #### [facility] [address] [place] [address] Dr. Freda Riojas %0.0 %Critically low0.2-2.0The [facility] HospitalComment on above:Performed By: #### CBCMAN #### [facility] [address] [place] [address] Dr. Freda Mauro #NormalThe [facility] HospitalComment on above:Performed By: #### CBCMAN #### [facility] [address] [address] [address] Freda WayneBLAST %NormalThe [facility] HospitalComment on above:Performed By: #### TAMIKO #### [facility] [address] [place] [address] Dr. Freda WayneCORRECTED WBCNormal4.0-11.0The [facility] HospitalComment on above: Performed By: #### TAMIKO #### [facility] [address] [place] [address] Dr. Freda Nuñez #0.00 103/ulNormal0.00-0.70The [facility] HospitalComment on above:Performed By: #### TAMIKO #### [facility] [address] [place] [address] Dr. Freda Nuñez%0.0 %Critically low0.9-7.0The [facility] HospitalComment on above:Performed By: #### TAMIKO #### [facility] [address] [place] [address] Dr. rFeda WayneHCT35.4 %Critically low42.0-54.0The [facility] HospitalComment on above:Performed By: #### TAMIKO #### [facility] [address] [place] [address] Dr. Freda WayneHGB11.3 g/dlCritically low14.0-18.0The [facility] HospitalComment on above:Performed By: #### TAMIKO #### [facility] [address] [place] [address] Dr. Freda Langford #0.65 103/ulCritically low1.20-3.80The [facility] Comment on above:Performed By: #### TAMIKO #### [facility] [address] [place] [address] Dr. Freda Langford%6.0 %Critically low20.5-60.0The [facility] HospitalComment on above:Performed By: #### TAMIKO #### [facility] [address] [place] [address] Dr. Freda WayneMCH28.8 koFvodfp67.9-34.0The [facility] HospitalComment on above: Performed By: #### TAMIKO #### [facility] [address] [place] [address] Dr. Freda LandHC31.9 g/ogVaumfp66.9-35.2The [facility] HospitalComment on above:Performed By: #### TAMIKO #### [facility] [address] [place] [address] Dr. Freda LandV90.3 dZJzrhmg11.0-94.0The [facility] HospitalComment on above: Performed By: #### TAMIKO #### [facility] [address] [place] [address] Dr. Freda Gillette #NormalThe [facility] HospitalComment on above: Performed By: #### TAMIKO #### [facility] [address] [place] [address] Dr. Freda GudinoOCYTE %NormalThe [facility] HospitalComment on above: Performed By: #### TAMIKO #### [facility] [address] [place] [address] Dr. Freda Antonio#0.76 103/ulNormal0.30-0.80The [facility] HospitalComment on above:Performed By: #### TAMIKO #### [facility] [address] [place] [address] Dr. Freda Antonio%7.0 %Normal1.7-12.0The [facility] HospitalComment on above: Performed By: #### CBCJOE #### [facility] [address] [place] [address] Dr. Freda HassanV10.2 fLNormal9.5-13.5The [facility] HospitalComment on above: Performed By: #### CBCJOE #### [facility] [address] [place] [address] Dr. Freda Chen #NormalThe [facility] HospitalComment on above:Performed By: #### TAMIKO #### [facility] [address] [address] [address] Freda ElizabethELOCYTE %NormalThe [facility] HospitalComment on above:Performed By: #### TAMIKO #### [facility] [address] [address] [address] Freda WayenNRBCNormalThe [facility] HospitalComment on above:Performed By: #### TAMIKO #### [facility] [address] [address] [address] Freda McgarryT275 103/kmRojghj062-295Ibr [facility] HospitalComment on above: Performed By: #### TAMIKO #### [facility] [address] [address] [address] Freda WayneRBC3.92 106/ulCritically low4.70-6.10The [facility] HospitalComment on above:Performed By: #### TAMIKO #### [facility] [address] [address] [address] Freda PalacioW15.5 %Critically high11.0-15.0The [facility] HospitalComment on above:Performed By: #### TAMIKO #### [facility] [address] [address] [address] Freda Burdick #9.16 103/ulCritically high1.40-6.50The [facility] on above:Performed By: #### TAMIKO #### [facility] [address] [address] [address] Freda Burdick %84.0 %Critically high43.0-75.0The [facility] HospitalComment on above:Performed By: #### TAMIKO #### [facility] [address] [address] [address] Freda De La CruzBC10.9 103/ulNormal4.0-11.0The [facility] HospitalComment on above:Performed By: #### TAMIKO #### [facility] [address] [address] [address] Freda Ontiveros HEPATOBILIARY SCANon [id number] HEPATOBILIARY SCANEXAM: NM HEPATOBILIARY SCAN HISTORY: Acute cholecystitis COMPARISON: CT abdomen [...] Electronically authenticated by: CINDI RYAN Date: 2021-06-04 00:06[facility] HospitalPOINT OF CARE GLUCOSEon [id number] [Mass/Vol]219 mg/dL Critically xwub22-029WxvSt. Rita's Hospital on above:Performed By: #### POCGLUC #### [facility] [address] [place] [address] José Luis KarenGlucose [Mass/Vol]134 mg/dLCritically xpec57-786Fpf [facility] HospitalComment on above:Performed By: #### POCGLUC #### [facility] [address] [place] [address] Dr. Freda WayneGlucose [Mass/Vol]196 mg/dLCritically aukx46-106MnnSt. Rita's Hospital on above:Performed By: #### POCGLUC #### [facility] [address] [place] [address] José Luis KarenPROF 14(COMP METB)on [id number] [Mass/Vol]2.8 g/dLCritically low3.5-5.0The [facility] on above:Performed By: #### CMP #### [facility] [address] [place] [address] Dr. Freda WayneAlbumin/Globulin [Mass ratio]0.8 {ratio}NormalThe [facility] on above:Performed By: #### CMP #### [facility] [address] [place] [address] Dr. Freda WayneALP [Catalytic activity/Vol]131 U/LCritically uhoy00-837Zif Lady HospitalComment on above:Performed By: #### CMP #### [facility] [address] [address] [address] Freda PearsonT [Catalytic activity/Vol]153 U/LCritically busf35-38Zzo [facility] HospitalComment on above:Performed By: #### CMP #### [facility] [address] [address] [address] Freda Duboseon gap [Moles/Vol]12.6 mmol/LNormalThe [facility] Comment on above:Performed By: #### CMP #### [facility] [address] [address] [address] Freda WayneAST [Catalytic activity/Vol]79 U/LCritically auqo06-91Omv [facility] HospitalComment on above:Performed By: #### CMP #### [facility] [address] [address] [address] Freda WayneBilirubin [Mass/Vol]0.7 mg/dLNormal0.2-1.3TKettering Health Dayton Comment on above:Performed By: #### CMP #### [facility] [address] [address] [address] Freda WayneCalcium [Mass/Vol]8.6 mg/dLNormal8.4-10.2 Comment on above:Performed By: #### CMP #### [facility] [address] [address] [address] Freda WayneChloride [Moles/Vol]104 mmol/FYrhqbv60-854Odi [facility] Comment on above:Performed By: #### CMP #### [facility] [address] [address] [address] Freda WayneCO2 [Moles/Vol]25.2 mmol/IHuupna12.0-30.0The [facility] Comment on above:Performed By: #### CMP #### [facility] [address] [address] [address] Freda WayneCreatinine [Mass/Vol]1.30 mg/dLCritically high0.66-1.25The [facility] HospitalComment on above:Performed By: #### CMP #### [facility] [address] [address] [address] Freda BergmanGFR-AF NIGERIEN>60Normal>=60The [facility] HospitalComment on above:Performed By: #### CMP #### [facility] [address] [address] [address] Freda BergmanGFR-NON AF VPCBVANE70 mL/min/1.27t5Pepdqooabq low>=60The [facility] HospitalComment on above:Performed By: #### CMP #### [facility] [address] [address] [address] Freda WayneGlobulin (S) [Mass/Vol]3.3 g/dLNormalThe [facility] HospitalComment on above:Performed By: #### CMP #### [facility] [address] [address] [address] Freda WayneGlucose [Mass/Vol]141 mg/dLCritically stvu81-538Esx [facility] HospitalComment on above:Performed By: #### CMP #### [facility] [address] [address] [address] Freda WaynePotassium [Moles/Vol]3.8 mmol/LNormal3.4-5.0The [facility] Comment on above:Performed By: #### CMP #### [facility] [address] [address] [address] Freda WayneProtein [Mass/Vol]6.1 g/dLNormal6.1-8.2 Comment on above:Performed By: #### CMP #### [facility] [address] [address] [address] Freda WayneSodium [Moles/Vol]138 mmol/FVckhbd227-181Kho [facility] Comment on above:Performed By: #### CMP #### [facility] [address] [address] [address] Freda WayneUrea nitrogen [Mass/Vol]13.0 mg/dLNormal9.0-20.0The [facility] HospitalComment on above:Performed By: #### CMP #### [facility] [address] [address] [address] Freda Fernandez nitrogen/Creatinine [Mass ratio]10.0 mg/mgDayton Osteopathic HospitalComhuron valley-[facility] hospital on above:Performed By: #### CMP #### [facility] [address] [place] [address] Dr. Freda Pérez CULTURE ID PANELon 06-03-2021. baumanniiNot detectedNormal Comment on above:Performed By: #### BCID #### [facility] [address] [place] [address] Dr. Freda Dougherty CONTROLSPASSEDDayton Osteopathic HospitalComhuron valley-sinai hospital on above: Performed By: #### BCID #### [facility] [address] [place] [address] Dr. Freda DoughertyBTHDFRANCK CULTURE BOTTLE INFORMATIONDayton Osteopathic HospitalComhuron valley-sinai hospital on above:Performed By: #### BCID #### [facility] [address] [place] [address] Dr. Freda DoughertyDgrpjEYAUCI1AZUQUMAQGIFNR RESISTANCE GENESDayton Osteopathic Hospital Comment on above:Performed By: #### BCID #### [facility] [address] [place] [address] Dr. Freda DoughertyHD2SEE BELOWDayton Osteopathic HospitalComhuron valley-sinai hospital on above: Result Comment: KPC- carbapenem resistance gene, mecA- methecillin resistance gene, van A/B- vancomycin resistance gene Note: Antimicrobial resitance can occur via multiple mechanisms. A Not Detectedresult for the FilmArray antomicrobial resistance gene assays does not indicate antimicrobial suscep tibility. Subculturing is required for specis identificationand susceptibility testing of isolates.Performed By: #### BCID #### [facility] [address] [place] [address] Dr. Freda DoughertyXgmqfKXFVID0EqlzqhawTibxywMtb Bellevue HospitalComment on above: Performed By: #### BCID #### [facility] [address] [place] [address] Dr. Freda DoughertyVgutjXZAISR6BvsxjagvTpqjquIda Bellevue HospitalComment on above: Performed By: #### BCID #### [facility] [address] [address] [address] Freda DoughertyEljivSKSJOJ3CSQCOAqwdzxZfwDayton Osteopathic HospitalComhuron valley-sinai hospital on above:Performed By: #### BCID #### [facility] [address] [address] [address] Freda WiseIDHD6SEE BELOWDayton Osteopathic HospitalComment on above: Result Comment: Note: All genus and species BCID FilmArray results will be verified post subculturing via Maldi-Tof MS testing methodology.Performed By: #### BCID #### [facility] [address] [place] [address] Dr. Freda Jay Set:Set 1NChildren's Hospital of Columbus on above: Performed By: #### BCID #### [facility] [address] [place] [address] Dr. Freda Jay:AerobicNoCleveland Clinic Avon HospitalComment on above: Performed By: #### BCID #### [facility] [address] [place] [address] Dr. Freda Mariscal albicansNot [facility] HospitalComhuron [facility] on above:Performed By: #### BCID #### [facility] [address] [place] [address] Dr. Freda Mariscal glabrataNot Chillicothe HospitalComment on above:Performed By: #### BCID #### [facility] [address] [place] [address] Dr. Freda Mariscal KruseiNot detectedDayton Osteopathic HospitalComment on above:Performed By: #### BCID #### [facility] [address] [place] [address] Dr. Freda Mariscal ParapsilosisNot [facility] Comment on above:Performed By: #### BCID #### [facility] [address] [place] [address] Dr. Freda WilksNot detectedCincinnati Children's [facility] HospitalComment on above:Performed By: #### BCID #### [facility] [address] [address] [address] Freda Bergman. Cloacae complexNot detectedDayton Osteopathic HospitalComment on above:Performed By: #### BCID #### [facility] [address] [address] [address] Freda ReillybacteriaceaeDetectedCritically abnormalComment on above:Performed By: #### BCID #### [facility] [address] [address] [address] Freda BorgeserococcusNot detectedDayton Osteopathic HospitalComment on above:Performed By: #### BCID #### [facility] [address] [address] [address] Freda Pierceia coliNot detectedDayton Osteopathic HospitalComment on above:Performed By: #### BCID #### [facility] [address] [address] [address] Freda West oxytocaNot detectedDayton Osteopathic HospitalComment on above:Performed By: #### BCID #### [facility] [address] [address] [address] Freda West pneumoniaeDetectedCritically abnormal Comment on above:Performed By: #### BCID #### [facility] [address] [address] [address] Freda WayneKPC Resistant GeneNot detectedCincinnati Children's Hospital [facility] Center HospitalComment on above:Performed By: #### BCID #### [facility] [address] [address] [address] Freda [place]. monocytogenesNot detectedCincinnati Children's Hospital [facility] Center HospitalComment on above:Performed By: #### BCID #### [facility] [address] [address] [address] Freda WaynemecA Resistant GeneNot ApplicableDayton Osteopathic Hospital Comment on above:Performed By: #### BCID #### [facility] [address] [address] [address] Freda WayneProteusNot detectedNoMagruder Hospital HospitalComment on above: Performed By: #### BCID #### [facility] [address] [address] [address] Freda Dykesd. aeruginosaNot detectedNoMagruder Hospital HospitalComment on above:Performed By: #### BCID #### [facility] [address] [address] [address] Freda Moreira marcescensNot detectedNoMagruder Hospital HospitalComment on above:Performed By: #### BCID #### [facility] [address] [address] [address] Freda Carlisle:left ACNormalCincinnati [facility] HospitalComment on above:Performed By: #### BCID #### [facility] [address] [address] [address] Freda Barrera. aureusNot detectedNoMagruder Hospital HospitalComment on above:Performed By: #### BCID #### [facility] [address] [address] [address] Freda LarsenaphylococcusNot detectedNoMagruder Hospital HospitalComment on above:Performed By: #### BCID #### [facility] [address] [address] [address] Freda Jarrell agalactiaeNot detectedCincinnati Children's Hospital Medical Center HospitalComment on above:Performed By: #### BCID #### [facility] [address] [address] [address] Freda Jarrell pneumoniaeNot detectedNoMagruder Hospital HospitalComment on above:Performed By: #### BCID #### [facility] [address] [address] [address] Freda Jarrell pyogenesNot detectedCincinnati Children's Hospital [facility] Center HospitalComment on above:Performed By: #### BCID #### [facility] [address] [address] [address] Freda LeivacoccusNot [facility] HospitalComment on above:Performed By: #### BCID #### [facility] [address] [place] [address] Dr. Freda Coto/Kate Hawkins [facility] Comment on above:Performed By: #### BCID #### [facility] [address] [place] [address] Dr. Freda Romero W MANUAL DIFFon [id number] LYMPH #NormalCincinnati Children'S [facility] Center HospitalComment on above:Performed By: #### POCGLUC #### [facility] [address] [place] [address] José Luis KarenATYPICAL LYMPH %NormalComment on above: Performed By: #### POCGLUC #### [facility] [address] [place] [address] José Luis KarenBAND #Normal0.0-0.3The [facility] HospitalComment on above:Performed By: #### POCGLUC #### [facility] [address] [place] [address] José Luis KarenBAND %Normal0-5The [facility] HospitalComment on above:Performed By: #### POCGLUC #### [facility] [address] [place] [address] José Luis KarenBASOM #0.00 103/ulNormal0.00-0.10The [facility] HospitalComment on above:Performed By: #### POCGLUC #### [facility] [address] [place] [address] José Luis KarenBASOM %0.0 %Critically low0.2-2.0[facility] HospitalComment on above:Performed By: #### POCGLUC #### [facility] [address] [place] [address] José Luis KarenBLAST #NormalCincinnati Children'S Hospital [facility] Center HospitalComment on above:Performed By: #### POCGLUC #### [facility] [address] [place] [address] José Luis KarenBLAST %NormalThe [facility] HospitalComment on above:Performed By: #### POCGLUC #### [facility] [address] [address] José Luis KarenCORRECTED WBCNormal4.0-11.0The [facility] HospitalComment on above: Performed By: #### POCGLUC #### [facility] [address] [address] José Luis KarenEOS #0.00 103/ulNormal0.00-0.70The [facility] HospitalComment on above:Performed By: #### POCGLUC #### [facility] [address] [address] José Luis KarenEOS%0.0 %Critically low0.9-7.0The [facility] HospitalComment on above: Performed By: #### POCGLUC #### [facility] [address] [place] [address] José Luis KjneiPQU44.0 %Critically low42.0-54.0The [facility] HospitalComment on above:Performed By: #### POCGLUC #### [facility] [address] [address] José Luis RurfoDPK09.0 g/dlCritically low14.0-18.0The [facility] HospitalComment on above:Performed By: #### POCGLUC #### [facility] [address] [address] José Luis KarenLYMPHM #0.18 103/ulCritically low1.20-3.80The [facility] Comment on above:Performed By: #### POCGLUC #### [facility] [address] [place] [address] José Luis KarenLYMPHM%1.0 %Critically low20.5-60.0The [facility] HospitalComment on above:Performed By: #### POCGLUC #### [facility] [address] [address] José Luis FkgaeJAI08.6 atYlbdas50.9-34.0The [facility] HospitalComment on above: Performed By: #### POCGLUC #### [facility] [address] [place] [address] José Luis WfspqJJAN20.7 g/vvSjshzx25.9-35.2The [facility] HospitalComment on above: Performed By: #### POCGLUC #### [facility] [address] [place] [address] José Luis DdgygZBX30.1 hQHkcodw34.0-94.0The [facility] HospitalComment on above: Performed By: #### POCGLUC #### [facility] [address] [place] [address] Ojsé Luis KarenMETAMYELOCYTE #NormalThe [facility] HospitalComment on above:Performed By: #### POCGLUC #### [facility] [address] [place] [address] José Luis KarenMETAMYELOCYTE %NormalThe [facility] HospitalComment on above:Performed By: #### POCGLUC #### [facility] [address] [place] [address] José Luis KarenMONOM#0.55 103/ulNormal0.30-0.80The [facility] HospitalComment on above:Performed By: #### POCGLUC #### [facility] [address] [place] [address] José Luis KarenMONOM%3.0 %Normal1.7-12.0The [facility] HospitalComment on above: Performed By: #### POCGLUC #### [facility] [address] [place] [address] José Luis ApzixYEE31.1 fLNormal9.5-13.5The [facility] HospitalComment on above: Performed By: #### POCGLUC #### [facility] [address] [place] [address] José Luis KarenMYELOCYTE #NormalThe [facility] HospitalComment on above:Performed By: #### POCGLUC #### [facility] [address] [place] [address] José Luis KarenMYELOCYTE %NormalThe [facility] HospitalComment on above:Performed By: #### POCGLUC #### [facility] [address] [place] [address] José Luis MathurenNRBCNormalThe [facility] HospitalComment on above:Performed By: #### POCGLUC #### [facility] [address] [place] [address] José Luis MathurHchahNLJ306 103/xfFsezls013-413Aya [facility] HospitalComment on above: Performed By: #### POCGLUC #### [facility] [address] [place] [address] José Luis KarenRBC4.55 106/ulCritically low4.70-6.10The [facility] HospitalComment on above:Performed By: #### POCGLUC #### [facility] [address] [place] [address] José Luis MathurenRDW15.6 %Critically high11.0-15.0The [facility] HospitalComment on above:Performed By: #### POCGLUC #### [facility] [address] [place] [address] José Luis BarajasG #17.57 103/ulCritically high1.40-6.50The [facility] Comment on above:Performed By: #### POCGLUC #### [facility] [address] [place] [address] José Luis BarajasG %96.0 %Critically high43.0-75.0The [facility] HospitalComment on above:Performed By: #### POCGLUC #### [facility] [address] [place] [address] José Luis BeardWBC18.3 103/ulCritically high4.0-11.0The Marymount HospitalComment on above:Performed By: #### POCGLUC #### [facility] [address] [place] [address] José Luis MathurenCT ABD/PELV W CONon [id number] ABD/PELV W CONEXAMINATION: CT ABD/PELV W CON HISTORY: GENERALIZED ABDOMINAL PAIN , [...] Electronically authenticated by: CINDI SOMMER Date: 2021-06-03 14:15NormalThe Marymount HospitalCULTURE BLOODon 68-11-4106Qkkcvrkmxaw examination of blood, cultureCulture Observations: NO GROWTH AT 5 DAYS.NormalThe Marymount HospitalComment on above:Performed By: #### BLDCX2 #### [facility] [address] [place] [address] Dr. Freda Gleason-19 [facility]on 69-98-5597TOTV-CoV-2 (COVID-19) RNA SHRUTI+probe Ql (Unsp spec)Not detectedNormalNOT DETECTEDThe [facility] Comment on above:Result Comment: When diagnostic testing is negative, the possibility of a false negative should be considered in the context of a patient's recent exposures and the presence of clinical signs and symptoms consistent with SARS-CoV-2. This test is not yet approved or cleared by the [place] Food and Drug Administration (FDA). This test was developed by [employer], [place], [place]. The performance characteristics of this test were validated by [facility]. The results are not intended to be used as the sole means for clinical diagnosis or patient management decisions. [facility] is authorized under Clinical Laboratory Improvement [...] for this test is supported by the Guide Setter of Health and Human Service's declaration that circumstances exist to justify the emergency use of in vitro diagnostics for the detection and/or diagnosis of the virus that causes COVID-19. This EUA will remain in effect for the duration of the COVID-19 declaration justifying emergency of IVDs, unless it is terminated or revoked by the FDA (after which the test may no longer be used).Performed By: #### CBCMAN #### [facility] [address] [place] [address] Dr. Freda Thompson URINE PROFILEon 68-69-7836Isujskxbp Ql (U)NegativeNormal NEGATIVEComment on above:Performed By: #### POCGLUC #### [facility] [address] [place] [address] José Luis KarenClarity (U)CLEARNormalCLEARComment on above: Performed By: #### POCGLUC #### [facility] [address] [place] [address] José Luis KarenColor (U)YELLOWNormalYELLOWThe Marymount HospitalComment on above: Performed By: #### POCGLUC #### [facility] [address] [place] [address] José Luis KarenERUAHDA micrscopic examination will be performed if indicated.Normal The [facility] HospitalComment on above:Performed By: #### POCGLUC #### [facility] [address] [place] [address] José Luis KarenGlucose Ql (U)100 mg/dlAbnormalNEGATIVEComhuron valley-sinai hospital on above:Performed By: #### POCGLUC #### [facility] [address] [place] [address] José Luis KarenHemoglobin Ql (U)NegativeNormalNEGATIVEComment on above:Performed By: #### POCGLUC #### [facility] [address] [place] [address] José Luis KarenKetones Ql (U)NegativeNormalNEGATIVECincinnati Children'S [facility] HospitalComment on above:Performed By: #### POCGLUC #### [facility] [address] [place] [address] José Luis KarenLEUKOCYTESNegativeNormalNEGATIVEComment on above:Performed By: #### POCGLUC #### [facility] [address] [place] [address] José Luis KarenNitrite Ql (U)NegativeNormalNEGATIVEComment on above:Performed By: #### POCGLUC #### [facility] [address] [place] [address] José Luis KarenpH (U)6.0 [pH]Normal5-9Comment on above: Performed By: #### POCGLUC #### [facility] [address] [place] [address] José Luis KarenProtein (U) [Mass/Vol]30 mg/dLAbnormalNEGATIVE/ TRACEThe Marymount HospitalComment on above:Performed By: #### POCGLUC #### [facility] [address] [place] [address] José Luis KarenSPEC GRAVITY1.109Okdvkt0.005-<=1.025The [facility] HospitalComment on above:Performed By: #### POCGLUC #### [facility] [address] [place] [address] José Luis KarenUR MICRO INDINDICATEDNormalThe Marymount HospitalComment on above: Performed By: #### POCGLUC #### [facility] [address] [place] [address] José Luis KarenUrobilinogen Qn (U)1.0 {Bassem'U}/dLNormal0.2 - 1.0The [facility] HospitalComment on above:Performed By: #### POCGLUC #### [facility] [address] [place] [address] José Luis KarenLACTATE/LACTIC ACIDon 01-62-2355Stbrqig [Moles/Vol]2.0 mmol/LNormal 0.7-2.0The [facility] on above:Performed By: #### POCGLUC #### [facility] [address] [place] [address] Dr. Freda WayneLIPASEon 85-89-8123Bsorxw [Catalytic activity/Vol]207.0 U/LNormal 23.0-300.0The [facility] HospitalComhuron valley-sinai hospital on above:Performed By: #### POCGLUC #### [facility] [address] [place] [address] Dr. Freda WaynePOINT OF CARE GLUCOSEon 85-58-9133Xqntcro [Mass/Vol]107 mg/dL Critically csmp83-140Pzh [facility] HospitalComhuron valley-sinai hospital on above:Performed By: #### POCGLUC #### [facility] [address] [place] [address] José Luis KarenPROF 14(COMP METB)on 82-19-4568Crgkzyk [Mass/Vol]3.9 g/dLNormal 3.5-5.0[facility] on above:Performed By: #### POCGLUC #### [facility] [address] [place] [address] Dr. Freda WayneAlbumin/Globulin [Mass ratio]1.1 {ratio}NormalThe [facility] on above:Performed By: #### POCGLUC #### [facility] [address] [place] [address] Dr. Freda Marcelo [Catalytic activity/Vol]181 U/LCritically izgl70-170Eef [facility] on above:Performed By: #### POCGLUC #### [facility] [address] [place] [address] Dr. Freda Dao [Catalytic activity/Vol]196 U/LCritically vfcv77-36Egv [facility] HospitalComhuron [facility] on above:Performed By: #### POCGLUC #### [facility] [address] [address] [address] Freda Busch gap [Moles/Vol]15.4 mmol/LNormalThe [facility] Comment on above:Performed By: #### POCGLUC #### [facility] [address] [address] [address] Freda WayneAST [Catalytic activity/Vol]217 U/LCritically noar21-51Hwc [facility] HospitalComment on above:Performed By: #### POCGLUC #### [facility] [address] [address] [address] Freda WayneBilirubin [Mass/Vol]1.1 mg/dLNormal0.2-1.3TKettering Health [facility] Comment on above:Performed By: #### POCGLUC #### [facility] [address] [address] [address] Freda WayneCalcium [Mass/Vol]9.7 mg/dLNormal8.4-10.2 Comment on above:Performed By: #### POCGLUC #### [facility] [address] [address] [address] Freda WayneChloride [Moles/Vol]101 mmol/RSbvznk63-719Ruj Comment on above:Performed By: #### POCGLUC #### [facility] [address] [address] [address] Freda WayneCO2 [Moles/Vol]24.4 mmol/QCkzqlc49.0-30.0 Comment on above:Performed By: #### POCGLUC #### [facility] [address] [address] [address] Freda WayneCreatinine [Mass/Vol]1.16 mg/dLNormal0.66-1.25The [facility] HospitalComment on above:Performed By: #### POCGLUC #### [facility] [address] [address] [address] Barba ChangEGFR-AF NIGERIEN>60Normal>=60The [facility] HospitalComment on above:Performed By: #### POCGLUC #### [facility] [address] [address] [address] Freda BergmanGFR-NON AF NIGERIEN>60Normal>=60The [facility] HospitalComment on above:Performed By: #### POCGLUC #### [facility] [address] [address] [address] Freda WayneGlobulin (S) [Mass/Vol]3.6 g/dLNormalThSelect Medical Specialty Hospital - Cincinnati NorthComment on above:Performed By: #### POCGLUC #### [facility] [address] [address] [address] Freda WayneGlucose [Mass/Vol]213 mg/dLCritically hjpm14-853Izb [facility] HospitalComment on above:Performed By: #### POCGLUC #### [facility] [address] [address] [address] Freda WaynePotassium [Moles/Vol]3.8 mmol/LNormal3.4-5.0[facility] Comment on above:Performed By: #### POCGLUC #### [facility] [address] [address] [address] Freda WayneProtein [Mass/Vol]7.5 g/dLNormal6.1-8.2[facility] Comment on above:Performed By: #### POCGLUC #### [facility] [address] [address] [address] Freda WayneSodium [Moles/Vol]137 mmol/CZcpkdj097-748Jjr [facility] Comment on above:Performed By: #### POCGLUC #### [facility] [address] [address] [address] Freda WayneUrea nitrogen [Mass/Vol]16.0 mg/dLNormal9.0-20.0The [facility] HospitalComment on above:Performed By: #### POCGLUC #### [facility] [address] [address] [address] Freda WayneUrea nitrogen/Creatinine [Mass ratio]13.8 mg/mgNormalThe Marymount HospitalComment on above:Performed By: #### POCGLUC #### [facility] [address] [place] [address] Dr. Freda WaynePROTIMEon 42-13-8894SEG Coag (PPP) [Relative time]1.05 {INR} NormalComment on above:Performed By: #### PT, PTT #### [facility] [address] [place] [address] Dr. Freda Genao GUIDELINESSEE BELOWNoalThSelect Medical Specialty Hospital - Cincinnati NorthComment on above:Result Comment: DESIRED INR: 2.0 - 3.0 CONDITIONS NOT LISTED BELOW 2.5 - 3.5 FOR PROSTHETIC HEART VALVE REPLACEMENT 2.5 - 3.5 RECURRENT THROMBOSIS Performed By: #### PT, PTT #### [facility] [address] [place] [address] Dr. Freda WaynePT Coag (PPP) [Time]11.3 sNormal9.0-11.6[facility] Comment on above:Performed By: #### PT, PTT #### [facility] [address] [place] [address] Dr. Freda Fitzgerald 31-74-2582fHWD Coag (Bld) [Time]28.2 nGgnhhc67.3-36.2Comment on above:Performed By: #### PT, PTT #### [facility] [address] [place] [address] Dr. Freda Marino, HIGH SENSITIVITYon 01-46-8587NFFRGY31.8 pg/mLNormal 4.0-42.2[facility] on above:Result Comment: CUT-OFF POINTS HAVE BEEN ESTABLISHED BASED ON THE FOURTH UNIVERSAL DEFINITIONS OF MYOCARDIAL INFARCTION. THE UPPER REFERENCE LIMIT (URL) OF TROPONIN, DEFINED THE 99TH PERCENTILE OF cTnI DISTRIBUTION IN A REFERENCE POPULATION, HAS BEEN CONFIRMED THE DECISION THRESHOLD FOR AL DIAGNOSIS.Performed By: #### POCGLUC #### [facility] [address] [place] [address] Dr. Freda Mujica MICROSCOPIC ONLYon 16-02-9594OCHOLPQRSOAA SEENNormalNONE SEENComment on above:Performed By: #### POCGLUC #### [facility] [address] [place] [address] José Luis KarenBacteria identified Cx Nom (U)NOT INDICATEDNormalThe [facility] HospitalComment on above:Performed By: #### POCGLUC #### [facility] [address] [place] [address] José Luis KarenCASTNONE SEENNormalNONE SEENComment on above: Performed By: #### POCGLUC #### [facility] [address] [place] [address] José Luis KarenCrystals LM Nom (Urine sed)NONE SEENNormalNONE SEENComhuron valley-sinai hospital on above:Performed By: #### POCGLUC #### [facility] [address] [place] [address] José Luis KarenEpithelial cells LM Ql (Urine sed)RARENormalNONE SEEN /RAREThe [facility] HospitalComment on above:Performed By: #### POCGLUC #### [facility] [address] [place] [address] José Luis KarenMUCOUSTRACEAbnormalNONE SEENComhuron valley-sinai hospital on above: Performed By: #### POCGLUC #### [facility] [address] [place] [address] José Luis XrqjqJNG4-1Asjfsp5-0Gno [facility] HospitalComh[facility] on above:Performed By: #### POCGLUC #### [facility] [address] [place] [address] José Luis KarenWBC0-2AbnormalNONE SEENComhuron valley-sinai hospital on above: Performed By: #### POCGLUC #### [facility] [address] [place] [address] José Luis KarenUS SINGLE QUAD RT UPPERon 43-79-9376HI SINGLE QUAD RT UPPER EXAMINATION: US SINGLE [...] Electronically authenticated by: CINDI SOMMER Date: 2021-06-03 09:27[facility] Von 82-19-4261UK CHEST 1 VEXAMINATION: XR CHEST 1 V HISTORY: NAUSEA WITH VOMITING, UNSPECIFIED [...] Electronically authenticated by: CINDI SOMMER Date: 2021-06-03 09:56[facility] Note - Heme Onc Schedulingon 00-89-5446Qinpcf Note - Heme Onc SchedulingRetrieve Patient Instructions: Patient Instructions: Patient Instructions: RetrievePatient Instructions COMMUNICATION ORDERS NOTES: Communication Orders NotesPer scheduling note on appointment wifes patient wants apt on 08/26 End of Visit Documentation: Clinic Location/Phone Number: Clinic Location/Phone Number: [place] [phone] End Of Visit MU Report Item: Visit Summary given or mailed to patientyes Mailed Appointments Electronic Signatures: Candice Shirley (PT ACCT REP) (Signed 22-May-2021 10:02) Authored: Retrieve Patient Instructions, COMMUNICATION ORDERS NOTES, End of Visit Documentation Last Updated: 22-May-2021 10:02 by Candice Shirley (PT ACCT REP)[facility]-Follow Up Visiton 05-20-2021 Clinic Note - Heme Onc-Follow Up VisitPatient Visit Information: Visit Type: Follow Up Visit History of Present Illness: ID Statement: YUSEF CAR is a 71 year old Male Chief Complaint: Duodenal neuroendocrine tumor Interval History: 70 years old gentleman from [place], [place] who has been referred to me from [facility]. The patient complained of acid reflux [...] renal cysts. 6. No (more content not included)...NormalUH [facility] CenterCl[facility] - Intakeon 18-92-1087Vlxgue Note - IntakePatient Visit Information: Visit TypeFollow Up Visit Source [...] 3 Weights & HeightsDate: Weight/Scale Type:Height: 04-Feb-2021 09:11228 kg / standing bczuy753.8 cm 07-Jan-2021 13:15593 kg / standing .8 cm 19-Dec-2020 13:37945 kg / standing rymsa152.8 cm SpO2 (%)98 % SpO2 Patient Onroom [...] falls riskimplement environmental risk factors interventions Spiritual/Procedural: Spiritual/cultural/jewish practices important for us to knowno Oncology [...] Nutrition Last Updated: 20-May-2021 12:55 by Edith Ruvalcaba)[facility] - Chemistry and Chemistry - challengeon 05-01-2021 Glucose [Mass/Vol]132 mg/dLabove high jjzpcvpao31 - 99 WX-Yzcaoozbmleszfoe-Zbryopba SJW 450 DO Work Phone: No Panel Informationon 05-01-2021 LX-Ugxdgqfmxhnrksxf-Wzesrajm SJW 450 DO Work Phone: [email or web address]?={[email or web address]}TP-Rcbgrdvthmmvfmxe-Ljczfqnp SJW 450 DO Work Phone: [phone]-Qddlwidleynjpdxx-[place] SJW 450 DO Work Phone: Coronavirus 2019 RNA by PCR, Screening Asymptomticon 28-55-8758Aywugvbqvma 2019 RNA by PCR, Screening AsymptomticNot detectedNormal See GwjvzAD-Rdelrwivcfliyjhs-Siofglsz SJW 450 DO Work Phone: Comment on above:SOURCE: Nasal, NasopharyngealReference Range: Not Detected.This assay is designed to detect the N, ORF1ab and/or S genes of SARS-CoV-2 via nucleic acid amplification. A Negative (NOT DETECTED) resultdoes not preclude 2019-nCoV infection since the adequacy of sample collection and/or low viral burden may result in presence of viral nucleic acids below the clinical sensitivity of this test method.Negative (NOT DETECTED) result should not be used as the sole basis for treatment or other patient management decisions. Rather negative results should be combined with clinical observations, patienthistory, and epidemiological information to make patient management decisions.Fact sheet for providers: https://www.fda.gov/media/982185/downloadFact sheet for patients: https://www.fda.gov/media/418234/downloadThis test has received FDA Emergency Use Authorization (EUA) and has been verified by [facility] ([facility]). This test is only authorized for the duration of time that circumstances exist to justify the authorization of the emergency use of in vitro diagnostic tests for the detection of SARS-CoV-2 virus and/or diagnosis of COVID-19 infection under section 564(b)(1) of the Act, 21 U.S.C. 360bbb- 3(b)(1), unless the authorization is terminated or revoked sooner. [facility] is certified under CLIA-88 as qualified to perform high complexity testing. Testing is performed in the [facility] laboratories located at [address] [place] [address].Provider Communicationon 32-35-2223Oyjkkrxk CommunicationDear Dr. Steele, Dr. Knowles and Dr. Gould, [...] should questions arise Sincerely, Irwin Cespedes MD, [facility] Clinical Inventory Control Clerk [facility] [place] [id number] [place] [address] Patient Care Team Care Team MemberRoleSpecialtyOffice Number Cedric HERNANDEZ, [facility] ProviderFahillcrest hospital [phone] Active Problems Problems BPH with obstruction/lower urinary [...] MD; Feb 05 2021 2:42PM EST (Author) [facility] TouchworksLaboratory - Chemistry and Chemistry - challengeon 01-23-2021 Glucose [Mass/Vol]106 mg/dLabove high tmgybbtdh60 - 99 FZ-Onufofvdzljefgbe-Vtkrjahi SJW 450 DO Work Phone: No Panel Informationon 01-23-2021 ZS-Gtntfppikkxfibko-Fuzfoytv SJW 450 DO Work Phone: [email or web address]?={[email or web address]}NO-Wodmhmcgfauvttml-Xeaulgqh SJW 450 DO Work Phone: [phone]-Sdqditumwlokuuvl-Jerry [employer] Clinical AnalyticsW 450 DO Work Phone: Complete Blood Count + Differentialon 01-11-2021 Basophils/100 WBC (Bld)0.4 %0.0 - 2.0[facility] Work Phone: Erythrocyte distribution width (RBC) [Ratio]15.6 % above high thresholdSee BelowOhiohealth Doctors Hospital Work Phone: Comment on above:Reference Range: 11.5 - 14.5 Hematocrit (Bld) [Volume fraction]40.9 %below low thresholdSee [facility] Work Phone: [phone] on above:Reference Range: 41.0 - 52.0 Hemoglobin (Bld) [Mass/Vol]12.9 g/dLbelow low thresholdSee [facility] Work Phone: [phone] on above:Reference Range: 13.5 - 17.5 Lymphocytes/100 WBC (Bld)16.1 %See BelowOhiohealth Doctors Hospital Work Phone: [phone] on above:Reference Range: 13.0 - 44.0MCHC (RBC) [Mass/Vol]31.5 g/dLbelow low thresholdSee [facility] Work Phone: [phone] on above:Reference Range: 32.0 - 36.0MCV (RBC) [Entitic vol]92 fL80 - 100[facility] Work Phone: [phone]/100 WBC (Bld)7.4 %2.0 - 10.0[facility] Work Phone: [phone]/100 WBC (Bld)73.8 %See [facility] Work Phone: [phone] on above:Reference Range: 40.0 - 80.0Platelets (Bld) [#/Vol]360 10*3/uL150 - 450[facility] Work Phone: [phone] (Bld) [#/Vol]4.45 {x10E12/L}below low thresholdSee [facility] Work Phone: [phone] on above:Reference Range: 4.50 - 5.90WBC (Bld) [#/Vol]7.7 10*3/uL4.4 - 11.3[facility] Work Phone: [phone] Blood Count + Differential0.03 {x10E9/L}See [facility] Work Phone: [phone] on above:Reference Range: 0.00 - 0.10Complete Blood Count + Differential0.15 {x10E9/L}See [facility] Work Phone: [phone] on above:Reference Range: 0.00 - 0.40Complete Blood Count + Differential0.57 {x10E9/L}See [facility] Work Phone: [phone] on above:Reference Range: 0.05 - 0.80Complete Blood Count + Differential1.24 {x10E9/L}See [facility] Work Phone: [phone] on above:Reference Range: 0.80 - 3.00Complete Blood Count + Differential5.68 {x10E9/L}above high thresholdSee [facility] Work Phone: [phone] on above:Reference Range: 1.60 - 5.50Complete Blood Count + Differential2.0 %0.0 - 6.0[facility] Work Phone: [phone] Blood Count + Differential0.3 %0.0 - 0.9 [facility] Work Phone: [phone] on above:Immature Granulocyte Count (IG) includes promyelocytes, myelocytes and metamyelocytes but does not include bands. Percent differential counts (%) should be interpreted in the context of the absolute cell counts (cells/L).Laboratory - Chemistry and Chemistry - challenge 33-91-7045Ohymevv BCP dye [Mass/Vol]4.1 g/dL3.4 - 5.0[facility] Work Phone: [phone] [Catalytic activity/Vol]82 U/L33 - 136[facility] Work Phone: [phone] With P-5'-P [Catalytic activity/Vol]12 U/L10 - 52 [facility] Work Phone: [phone] on above:Patients treated with Sulfasalazine may generate falsely decreased results for ALT.Anion gap [Moles/Vol]12 mmol/L10 - 20[facility] Work Phone: [phone] With P-5'-P [Catalytic activity/Vol]12 U/L9 - 39 [facility] Work Phone: [phone] [Mass/Vol]0.5 mg/dL0.0 - 1.2[facility] Work Phone: [phone] [Mass/Vol]9.8 mg/dL8.6 - 10.3[facility] Work Phone: [phone] [Moles/Vol]103 mmol/L98 - 107[facility] Work Phone: [phone] [Moles/Vol]30 mmol/L21 - 32[facility] Work Phone: [phone] [Mass/Vol]1.20 mg/dLSee [facility] Work Phone: [phone] on above:Reference Range: 0.50 - 1.30Glucose [Mass/Vol]147 mg/dLabove high zvtfwhewy94 - 99[facility] Work Phone: [phone] [Moles/Vol]4.5 mmol/L3.5 - 5.3[facility] Work Phone: [phone] [Mass/Vol]7.0 g/dL6.4 - 8.2[facility] Work Phone: [phone] [Moles/Vol]140 mmol/L136 - 145[facility] Work Phone: [phone] nitrogen [Mass/Vol]19 mg/dL6 - 23[facility] Work Phone: [phone] Liver w/wo Contraston 36-52-7714BL Liver WO and W contrast IVNormalUniMethodist Dallas Medical Center Work Phone: [phone] Panel Informationon 56-18-768954 {mL/min/1.73m2}>60 [facility] Work Phone: [phone] on above:CALCULATIONS OF ESTIMATED GFR ARE PERFORMED USING THE MDRD STUDY EQUATION FOR THE IDMS-TRACEABLE CREATININE METHODS. CLIN CHEM 2007;53:766-7260 {mL/min/1.73m2}Abnormal>60[facility] Work Phone: [phone] Specific Antigenon 02-82-6738Wupbjmem specific Ag [Mass/Vol]0.29 ng/mLSee [facility] Work Phone: [phone] on above:Reference Range: 0.00 - 4.00The FDA requires that the method used for PSA assay be reported to the physician. Values obtained with different assay methods must not be used interchangeably. This test was performed at [facility] using the Red Mapache PSA method, which is a sandwich immunoassay using chemiluminescence for quantitation. The assay is approvedfor measurement of prostate-specific antigen (PSA) in serum and may be used in conjunction with a digital rectalexamination in men 50 years and older as an aid in detection of prostate cancer. 8-Htrnc-sthqkocrb inhibitors (e.g. 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 Knowles will continue withimaging follow-up in the future. Dictation software was used in the creation of this note and not corrected for typographical or grammatical errors Chief Complaint An interactive audio and video telecommunication system which permits real time communications between the patient (at the originating site) and provider (at the distant site) was utilized to providethis telehealth service. Verbal consent was requested and obtained from YUSEF CAR on this date, 01/10/2021 09:30 AM , for a telehealth visit. 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 He underwent EGD on 11/28/2020 at the [facility] in [facility] for a longstanding history ofgastroesophageal reflux disease, as well as right upper quadrant abdominal pain. He has undergone right upper quadrant ultrasound as well as HIDA scan which showed no gallbladder problems. EGD reportshowed a small polyp apparently in the bulb [...] Non-smoker (V49.89) (Z78.9) Allergies ciprofloxacin Recorded By: eNelima Brock; 01/08/2021 2:21:14 PM Lisinopril TABS Recorded [...] Calcium 10 MG Oral Tablet Results/Data Gastrin, Qqpsv33Acp1054 08:49AMNon Ambulatory, Provider Ordering Provider: NEFTALI KNOWLES [id number] Test NameResultFlagReference Gastrin, Serum21 pg/mL0-100 Performed By: [employer] [address] [place] [address] Aircraft Systems Technician: TracyI. Jai MD CT Abdomen and Pelvis with IV Umctdvwd49Whc9659 05:35[facility] Ordering Provider: NEFTALI KNOWLES [id number] Abdomen and Pelvis with [...] for staging purposes. COMPARISON: None. ACCESSION NUMBER(S): [id number] ORDERING CLINICIAN: NEFTALI KNOWLES TECHNIQUE: CT of [...] Recommend correlation with PET-CT performed on 12/25/2020. BILEDUCTS: The intrahepatic and extrahepatic ducts are not dilated. 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 PSA in May 2020 was 0.75. Hehas not had a recent digital rectal exam. [...] no heartburn, no diarrhea, no vomiting and noblood in stools. Genitourinary: no dysuria, no incontinence, [...] (Z78.9) Allergies Medication ciprofloxacin Recorded By: Neelima Brcok; 01/08/2021 2:21:14 PM Lisinopril TABS Recorded By: [...] Tablet Vitals Vital Signs Recorded: 08Jan2021 02:15PM Unturwzzpir60.5 F Heart Rate76 Ekewhfuo554 Fnkexbwqh03 Height5 ft 10 in Bdmaye133 lb BMI Nnvxeevmvr49.87 kg/m2 BSA Calculated2.27 Tobacco Useb) No Fall Screeninga) No falls within the last year Physical Exam General: in NAD, appears stated age Head: normocephalic, atraumatic Neck: supple; trachea is midline Respiratory: normal effort, no use of accessory muscles Cardiovascular: no peripheral edema Abdomen: soft, nondistended, nontender, no rebound or guarding, no organomegaly, no CVA tenderness,no hernia Lymphatic: no lymphadenopathy noted Skin: normal turgor, no rashes Neurologic: grossly intact, oriented to person/place/time Psychiatric: mode and affect appropriate : normal phallus, normal meatus, scrotum normal, testicles normal bilaterally, epididymis normal bilaterally LURDES: normal tone, no hemorrhoids, prostate smooth/nontender/no nodules, mild enlarged Results/Data CT Abdomen and Pelvis with IV Jfhprsgc00Vkc8193 05:35PMNon Ambulatory, Provider Ordering Provider: NEFTALI KNOWLES [address] Abdomen and Pelvis with [...] were obtained for st (more content not included)...NormalUH TouchworksTobacco Screening.on 56-20-9904Niji risk assessmenta) No falls within the last ksrcJG-Ivkvjte-CyvnicqHenry [facility] Work Phone: Tobacco use status CPHSb) StDU-Nyiannu-NasjsfuSelect [facility]ty [facility] Work Phone: complete Blood Count + Differentialon 12-26-2020 Hematocrit (Bld) [Volume fraction]PhigxslzUV-Nmbljyu-IbumvoaHenry [facility] Work Phone: [phone] (Bld) [Mass/Vol]NegvpousUG-Rqgzizc-CcgdsqlHenry [facility] Work Phone: [phone] (Bld) [#/Vol]AajzywzkFM-Avjluiu-KgfreqeHenry [facility] Work Phone: [phone] (Bld) [#/Vol]AlceohgrEP-Udserye-DdmdtooHenry [facility] Work Phone: [phone] Blood Count + DifferentialCanceled [facility] Work Phone: [phone] on above:Immature Granulocyte Count (IG) includes promyelocytes, myelocytes and metamyelocytes but does not include bands. Percent differential counts (%) should be interpreted in the context of the absolute cell counts (cells/L).CALCULATIONS OF ESTIMATED GFR ARE PERFORMED USING THE MDRD STUDY EQUATION FOR THE IDMS-TRACEABLE CREATININE METHODS. CLIN CHEM 2007;53:766-72Gastrin, Serumon 67-38-5925Cmabmax [Mass/Vol]21 pg/mL0-100 [facility] Work Phone: [phone] on above:Performed By: [employer] [place] [id number] Director: Katharine Carrillo MD Laboratory - Chemistry and Chemistry - challengeon 39-52-9038Siuqilq BCP dye [Mass/Vol]UpxmymkmWV-Cidtbbs-KeiklkaHenry [facility] Work Phone: [phone] [Catalytic activity/Vol]NspbamfoZG-Unniiij-AbxvdtkHenry [facility] Work Phone: [phone] With P-5'-P [Catalytic activity/Vol]Canceled [facility] Work Phone: [phone] on above:Patients treated with Sulfasalazine may generate falsely decreased results for ALT.AST With P-5'-P [Catalytic activity/Vol]GsibdxmzCJ-Bgnrcov-YntbrngHenry [facility] Work Phone: [phone] [Mass/Vol]ZqjhivhlEZ-Frivpyx-LpgxxskHenry [facility] Work Phone: [phone] [Mass/Vol]UlcvewatCJ-Iwbiwzv-DcdlnofHenry [facility] Work Phone: [phone] [Moles/Vol]FgudtlriBD-Tngeanp-RvpvzwqHenry [facility] Work Phone: [phone] [Moles/Vol]FzsywyndMQ-Ztqctss-WxsjshnHenry [facility] Work Phone: [phone] [Mass/Vol]OmrcjrexKJ-Lmymmau-NfavqjxHenry [facility] Work Phone: [phone] [Mass/Vol]AkwxjzvgVM-Qlnqlap-TsjuvttHenry [facility] Work Phone: [phone] [Moles/Vol]LdhhibacXI-Gsjmesm-YfayspwHenry [facility] Work Phone: [phone] [Mass/Vol]SjzswipqSM-Biidcgi-IpzdfdtHenry [facility] Work Phone: [phone] [Moles/Vol]IblsuphyEM-Frtguga-FdmtxbxHenry [facility] Work Phone: [phone] nitrogen [Mass/Vol]DfafhuptDS-Ucxrpno-WopyazzHenry [facility] Work Phone: [phone] Abdomen and Pelvis with IV Contraston 61-81-8121RQ Abdomen and Pelvis W contrast FUTjnsjaJO-Helmvgi-QxymzpeHenry [facility] Kings[facility] Hospital Work Phone: [phone] Blood Count + Differentialon 12-25-2020 Basophils/100 WBC (Bld)0.2 %0.0 - 2.3TN-Tvazyzb-VhljbdvHenry [facility] Work Phone: [phone] distribution width (RBC) [Ratio]15.7 % above high thresholdSee TudvfKY-Miuxqzf-QtgmehnHenry [facility] Work Phone: [phone] on above:Reference Range: 11.5 - 14.5 Hematocrit (Bld) [Volume fraction]40.2 %below low thresholdSee Below [facility] Work Phone: [phone] on above:Reference Range: 41.0 - 52.0 Hemoglobin (Bld) [Mass/Vol]13.0 g/dLbelow low thresholdSee Below [facility] Work Phone: [phone] on above:Reference Range: 13.5 - 17.5 Lymphocytes/100 WBC (Bld)14.4 %See MjtohQP-Evmfakd-NnadgmwHenry [facility] Hospital Work Phone: [phone] on above:Reference Range: 13.0 - 44.0MCHC (RBC) [Mass/Vol]32.3 g/dLSee KvuukTZ-Cjoscct-EdzppfuHenry [facility] Kings[facility] Hospital Work Phone: [phone] on above:Reference Range: 32.0 - 36.0MCV (RBC) [Entitic vol]89 fL80 - 500GA-Ullktzt-QutjuhxHenry [facility] Work Phone: [phone]/100 WBC (Bld)7.5 %2.0 - 10.0 [facility] Work Phone: [phone]/100 WBC (Bld)76.9 %See Below [facility] Work Phone: [phone] on above:Reference Range: 40.0 - 80.0Platelets (Bld) [#/Vol]401 10*3/uL150 - 136VQ-Getqqpy-LrjezduHenry [facility] Kingswood Hospital Work Phone: [phone] (Bld) [#/Vol]4.50 {x10E12/L}See Below [facility] Work Phone: [phone] on above:Reference Range: 4.50 - 5.90WBC (Bld) [#/Vol]11.4 10*3/uLabove high threshold4.4 - 11.1BT-Ltuemdz-WwizkdnSelect [facility]ty [facility] Work Phone: [phone] Blood Count + Differential0.02 {x10E9/L}See GexpdSP-Zfjtcgc-AmshmnjHenry [facility] Work Phone: [phone] on above:Reference Range: 0.00 - 0.10Complete Blood Count + Differential0.08 {x10E9/L}See LgdsnJQ-Xmeqkii-OojfsfvHenry [facility] Hospital Work Phone: [phone] on above:Reference Range: 0.00 - 0.40Complete Blood Count + Differential0.86 {x10E9/L}above high thresholdSee Below [facility] Work Phone: [phone] on above:Reference Range: 0.05 - 0.80Complete Blood Count + Differential1.65 {x10E9/L}See TssomNE-Qeljucf-ClxqtepHenry [facility] Kings[facility] Hospital Work Phone: [phone] on above:Reference Range: 0.80 - 3.00Complete Blood Count + Differential8.78 {x10E9/L}above high thresholdSee Below [facility] Work Phone: [phone] on above:Reference Range: 1.60 - 5.50Complete Blood Count + Differential0.7 %0.0 - 6.3WZ-Dncqbcc-AsixfcqHenry [facility] Work Phone: [phone] Blood Count + Differential0.3 %0.0 - 0.9 [facility] Work Phone: [phone] on above:Immature Granulocyte Count (IG) includes promyelocytes, myelocytes and metamyelocytes but does not include bands. Percent differential counts (%) should be interpreted in the context of the absolute cell counts (cells/L).Gastrin, Serumon 89-04-9893Jojeejl [Mass/Vol] OobujptfYX-Afzujdn-AfqaorfHenry Ford Kingswood Hospital Work Phone: [phone] - Chemistry and Chemistry - challengeon 00-80-9557Nfnpguq BCP dye [Mass/Vol]4.3 g/dL3.4 - 5.7AN-Kbweiqm-WaccmopHenry Ford Kingswood Hospital Work Phone: [phone] [Catalytic activity/Vol]88 U/L33 - 136 [facility] Work Phone: [phone] With P-5'-P [Catalytic activity/Vol]11 U/L10 - 52 NS-Lfcfgus-GugnnppAscension Borgess Hospital Work Phone: [phone] on above:Patients treated with Sulfasalazine may generate falsely decreased results for ALT.Anion gap [Moles/Vol]15 mmol/L10 - 55CA-Xnulvoy-UfeyzsyAscension Borgess Hospital Work Phone: [phone] With P-5'-P [Catalytic activity/Vol]12 U/L9 - 39 FR-Ullpgbw-JgitebnAscension Borgess Hospital Work Phone: [phone] [Mass/Vol]0.4 mg/dL0.0 - 1.2 OL-Oqownyp-VcgcgcbAscension Borgess Hospital Work Phone: [phone] [Mass/Vol]9.8 mg/dL8.6 - 10.3 NN-Ssmhbgw-CxvdztoAscension Borgess Hospital Work Phone: [phone] [Moles/Vol]104 mmol/L98 - 107 VV-Mrvzmjl-SnalembAscension Borgess Hospital Work Phone: [phone] [Moles/Vol]23 mmol/L21 - 12PD-Kzzztcx-PchkhhrAscension Borgess Hospital Work Phone: [phone] [Mass/Vol]1.15 mg/dLSee Below SV-Qlacvkt-VdbopgvAscension Borgess Hospital Work Phone: [phone] on above:Reference Range: 0.50 - 1.30Glucose [Mass/Vol]101 mg/dLabove high atbzuliqo62 - 57PT-Fvclump-NqjpxniAscension Borgess Hospital Work Phone: [phone] [Moles/Vol]4.3 mmol/L3.5 - 5.3 SG-Geoafdh-JfopmxtAscension Borgess Hospital Work Phone: [phone] [Mass/Vol]7.5 g/dL6.4 - 8.4TZ-Adgqbrb-SakvujmAscension Borgess Hospital Work Phone: [phone] [Moles/Vol]138 mmol/L136 - 145 TH-Paqgssn-PxveirwAscension Borgess Hospital Work Phone: [phone] nitrogen [Mass/Vol]30 mg/dLabove high threshold6 - 15FK-Qeijqvm-GwenpixAscension Borgess Hospital Work Phone: [phone] Panel Informationon 12-25-2020>60>60 ZV-Tnjezmn-GvbpsbhAscension Borgess Hospital Work Phone: comment on above:CALCULATIONS OF ESTIMATED GFR ARE PERFORMED USING THE MDRD STUDY EQUATION FOR THE IDMS-TRACEABLE CREATININE METHODS. 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 He will be undergoing serum gastrin level testing as well as cross-sectional imaging. I will obtain his EGD report from [facility]. It is currently unclear to me [...] Duodenal well-differentiated neuroendocrine tumor History of Present Bdzqxcu25-jjgy-hue man referred to me from Dr. Johansen for duodenal well-differentiated neuroendocrine tumor. He underwent EGD on 11/28/2020 at the [facility] in [facility] for a longstanding history of gastroesophageal reflux [...] Colonoscopy showed tubular adenoma. The patient was seentoday by Dr. Johansen who has ordered cross-sectional imaging and gastrin level Family history of breast cancer for additional work-up. Past medical history significant for hypertension, diabetes mitral valve prolapse Past surgical history significant for open appendectomy in 1960 as well as orthopedic surgery Medications include [...] no dysuria, no prostate disorders and no testicularpain. Musculoskeletal: joint stiffness/swelling, limb pain/swelling and back pain, but no arthralgias, nomyalgias and no hernia. Integumentary: no rashes and [...] palpable masses. No hepatosplenomegaly. No hernias. Right lowerquadrant scar Back: No costovertebral angle tenderness Extremities: Warm and well-perfused, no edema Neurologic: No focal neurologic deficits Skin: Warm and dry without obvious rashes Signatures Electronically signed by : Zach Gould MD; Dec 19 2020 2:29PM EST (Author)Normal UH TouchworksH PYLORI TISSUEon 11-28-2020 PYL TISSUE, UREASENegativeNormal NEGATIVEThe [facility] HospitalComment on above:Performed By: #### POCGLUC #### [facility] [address] [address] [address] [facility] GLUCOSEon 86-89-0360Otahuag [Mass/Vol]129 mg/dL Critically kysr61-139Sxy [facility] HospitalComment on above:Performed By: #### POCGLUC #### [facility] [address] [address] José Luis KarenCovid-19 PCR ([facility])on 78-45-5241RBJH-CoV-2 (COVID-19) RNA SHRUTI+probe Ql (Unsp spec)Not detectedNormalNOT DETECTEDThe [facility] Comment on above:Result Comment: This test is not yet approved or cleared by the [place] FDA. When there are no FDA-approved or cleared tests available, and other criteria are met, FDA can make tests available under an emergency access mechanism called an Emergency Use Authorization (EUA). The EUA for this test is supported by the Guide Setter of Health and Human Service's (HHS's) declaration that circumstances exist to justify the emergency use of in vitro diagnostics for the detection and/or diagnosis of the virus that causes COVID- 19. This EUA will remain in effect (meaning [...] of clinical signs and symptoms consistent with SARS-CoV-2.Performed By: #### CBCMAN #### [facility] [address] [address] [address] Freda WayneNM HEPATOBILIARY SCAN W EFon [id number] HEPATOBILIARY SCAN W EF EXAMINATION: NM HEPATOBILIARY [...] Electronically authenticated by: MARCELLO LEE Date: 2020-06-18 10:24[facility] Vital Signs Date TimeVital SignValuePerforming EtqxmtmpuRefcelzs18-37-2745 13:48-0400Body umxtvz008.8 cmJonathan Petty DPM Work Phone: [facility] CenterNmutxglajr71-28-1686 13:48-0400Body mass index (BMI) [Ratio]32.28 kg/i5Loyysxvh Brown DPM Work Phone: [facility] CenterEzseiuhplk10-89-1185 13:48-0400Body vcurat792.06 kgVeliaozzy Brown DPM Work Phone: [facility] CenterKecnjlpyrr42-42-6576 13:48-0400Respiratory rate18 /minVeliaozzy Brown DPM Work Phone: [facility] CenterVodzushasx28-94-5860 11:19-0400Body temperature 98.5 [degF]Tomeka Rosado ENTERTAINMENT MUSICIAN-C Work Phone: [facility]10-15-2025 11:19-0400 Body lrcomw958.04 kgTomeka Rosado ENTERTAINMENT MUSICIAN-C Work Phone: [facility]10-15-2025 11:19-0400 Diastolic blood pdpdtxuf30 mm[Hg]Tomeka Aichholz ENTERTAINMENT MUSICIAN-C Work Phone: [phone]10-15-2025 11:19-0400 Heart rate72 /minLisa Aichholz ENTERTAINMENT MUSICIAN-C Work Phone: [phone]10-15-2025 11:19-0400 Respiratory rate18 /minLisa Aichholz ENTERTAINMENT MUSICIAN-C Work Phone: [phone]10-15-2025 11:19-0400 SaO2% (BldA) [Mass fraction]96 %Tomeka Aichholz ENTERTAINMENT MUSICIAN-C Work Phone: [phone]10-15-2025 11:19-0400 Systolic blood vixioiuk429 mm[Hg]Tomeka Aichholz ENTERTAINMENT MUSICIAN-C Work Phone: [phone]09-29-2025 09:03-0400 Body .8 cmLisa Aichholz ENTERTAINMENT MUSICIAN-C Work Phone: [phone]09-29-2025 09:03-0400 Body mass index (BMI) [Ratio]33.5 kg/m2Lisa Aichholz ENTERTAINMENT MUSICIAN-C Work Phone: [phone]09-29-2025 09:03-0400 Body .5 [degF]Tomeka Aichholz ENTERTAINMENT MUSICIAN-C Work Phone: [phone]09-29-2025 09:03-0400 Body lgzaqg721.85 kgLisa Aichholz ENTERTAINMENT MUSICIAN-C Work Phone: [phone] [place], [place] [address]09-29-2025 09:03-0400 Diastolic blood fpxqoyah61 mm[Hg]Tomeka Aichholz ENTERTAINMENT MUSICIAN-C Work Phone: [phone] [place], [place] [address]09-29-2025 09:03-0400 Heart rate36 /minLisa Aichholz ENTERTAINMENT MUSICIAN-C Work Phone: [facility]09-29-2025 09:03-0400 Heart rate40 /minLisa Aichholz ENTERTAINMENT MUSICIAN-C Work Phone: [facility]09-29-2025 09:03-0400 Respiratory rate18 /minLisa Aichholz ENTERTAINMENT MUSICIAN-C Work Phone: [facility]09-29-2025 09:03-0400 SaO2% (BldA) [Mass fraction]96 %Tomeka Leeroyhholz ENTERTAINMENT MUSICIAN-C Work Phone: [facility]09-29-2025 09:03-0400 Systolic blood kwcnqnah815 mm[Hg]Tomeka Aichholz ENTERTAINMENT MUSICIAN-C Work Phone: [phone]09-29-2025 09:03-0400 Systolic blood wuvnuyln772 mm[Hg]Tomeka Aichholz ENTERTAINMENT MUSICIAN-C Work Phone: [facility]07-28-2025 08:33-0400 Body mass index (BMI) [Ratio]33.2 kg/m2Lisa Aichholz ENTERTAINMENT MUSICIAN Work Phone: [facility] CenterErgeqqsbnw90-00-9553 08:33-0400Body temperature 98.49 [degF]Tomeka Aichholz ENTERTAINMENT MUSICIAN Work Phone: [facility] CenterCtvuowoisz03-80-3614 08:33-0400Body xvsenw766.96 kgLisa Aichholz ENTERTAINMENT MUSICIAN Work Phone: [facility] CenterXsopjkrfqr03-94-0468 08:33-0400Diastolic blood vziovlgt42 mm[Hg]Tomeka Aichholz ENTERTAINMENT MUSICIAN Work Phone: [facility] CenterYjpbgrjpzo01-62-5513 08:33-0400Heart rate68 /min Tomeka Aichholz ENTERTAINMENT MUSICIAN Work Phone: [facility] CenterJrijruspor15-95-4720 08:33-0400Respiratory rate18 /minLisa Aichholz ENTERTAINMENT MUSICIAN Work Phone: [facility] CenterByhnxawaty22-74-7772 08:33-7913AmK7% (BldA) [Mass fraction]96 %Tomeka Marvinholz ENTERTAINMENT MUSICIAN Work Phone: [phone] [place], [place] [address]Zqlpvyesgo04-21-6660 08:33-0400Systolic blood lfvnoaif618 mm[Hg]Tomeka Leeroyhholz ENTERTAINMENT MUSICIAN Work Phone: [phone] [place], [place] [address]Xaaytgmhxl89-19-2263 14:05-0400Body mass index (BMI) [Ratio]32.4 kg/m2Lisa Leeroyhholz ENTERTAINMENT MUSICIAN Work Phone: [phone] [place], [place] [address]Oivrfkfdac46-24-1420 14:05-0400Body temperature 98.49 [degF]Tomeka Leeroyhholz ENTERTAINMENT MUSICIAN Work Phone: [phone] [place], [place] [address]Gvlliaihjy39-60-6269 14:05-0400Body jyljdn109.42 kgLisa Leeroyhholz ENTERTAINMENT MUSICIAN Work Phone: [phone] [place], [place] [address]Tdsplqnthc58-86-3783 14:05-0400Diastolic blood gsujvsgv31 mm[Hg]Tomeka Marvinholz ENTERTAINMENT MUSICIAN Work Phone: [phone] [place], [place] [address]Nbsejyhzxb00-38-7327 14:05-0400Heart rate24 /min Tomeka Leeroyhholz ENTERTAINMENT MUSICIAN Work Phone: [phone] [place], [place] [address]Zkaebhajte60-41-6001 14:05-0400Respiratory rate18 /minLisa Leeroyhholz ENTERTAINMENT MUSICIAN Work Phone: [phone] [place], [place] [address]Zfmzehosdr67-94-1718 14:05-8390BrU1% (BldA) [Mass fraction]95 %Tomeka Marvinholz ENTERTAINMENT MUSICIAN Work Phone: [phone] [place], [place] [address]Keudpndnxm20-33-8332 14:05-0400Systolic blood ggtavein863 mm[Hg]Tomeka Aichholz ENTERTAINMENT MUSICIAN Work Phone: [phone] [place], [place] [address]Sjmoqtedrr78-93-3479 13:58-0400Body mass index (BMI) [Ratio]32.46 kg/m2Lisa Aichholz ENTERTAINMENT MUSICIAN Work Phone: [phone] [place], [place] [address]Gwahiksfun92-33-5598 13:58-0400Body temperature 98.49 [degF]Tomeka Rosado ENTERTAINMENT MUSICIAN Work Phone: [facility] CenterPmmzatqgax48-58-5654 13:58-0400Body nivupl260.6 kgLisa Marco Az ENTERTAINMENT MUSICIAN Work Phone: [facility] CenterComysbdslr74-77-0340 13:58-0400Diastolic blood zkyixbgs01 mm[Hg]Tomeka Marco Az ENTERTAINMENT MUSICIAN Work Phone: [facility] CenterUiaeyuhzsf32-31-1235 13:58-0400Heart rate71 /min Tomeka Marvinholz ENTERTAINMENT MUSICIAN Work Phone: [facility] CenterQjsuornuzg25-86-2179 13:58-0400Respiratory rate18 /minLisa Marco Az ENTERTAINMENT MUSICIAN Work Phone: [facility] CenterPwtwzzwkzk09-66-5314 13:58-1735EaJ5% (BldA) [Mass fraction]96 %Tomeka Marco Az ENTERTAINMENT MUSICIAN Work Phone: [facility] CenterYyljpeqatz21-45-2684 13:58-0400Systolic blood xrcraxfe940 mm[Hg]Tomeka Marco Az ENTERTAINMENT MUSICIAN Work Phone: [facility] CenterFyhkbqgwli89-10-4059 08:41-0400Body mass index (BMI) [Ratio]33.12 kg/m2Roxannesa Marco Az ENTERTAINMENT MUSICIAN Work Phone: [facility] CenterEilrbjzydu73-63-4317 08:41-0400Body temperature 97.81 [degF]Tomeka Marco Az ENTERTAINMENT MUSICIAN Work Phone: [address] [address]Hggdsgzxlc72-00-5376 08:41-0400Body .69 kgLisa Marvinholz ENTERTAINMENT MUSICIAN Work Phone: [address] [address]Sqijthwfcn36-02-8447 08:41-0400Diastolic blood ycwwezzs71 mm[Hg]Tomeka Marvinholz ENTERTAINMENT MUSICIAN Work Phone: [address] [address]Fgvnksxgjf59-53-0281 08:41-0400Heart rate56 /min Tomeka Marvinholz ENTERTAINMENT MUSICIAN Work Phone: [facility] CenterIxakgjgmro60-05-3511 08:41-0400Respiratory rate18 /minTomeka Rosado ENTERTAINMENT MUSICIAN Work Phone: [facility] CenterFbqxoigpjr47-70-4248 08:41-6219VvZ1% (BldA) [Mass fraction]98 %Tomeka Rosado ENTERTAINMENT MUSICIAN Work Phone: [facility] CenterRbdhsayacu92-92-8179 08:41-0400Systolic blood hzbmnndu913 mm[Hg]Tomkea Rosado ENTERTAINMENT MUSICIAN Work Phone: [facility] CenterOrnciqgwii97-15-3901 08:29-0500Body tjnfuj008.8 cmBrallen Gatica ENTERTAINMENT MUSICIAN Work Phone: [facility] CenterOcadqyzvcw56-89-7840 08:29-0500Body mass index (BMI) [Ratio]34.09 kg/m0Ezxjqtvj Gatica ENTERTAINMENT MUSICIAN Work Phone: [facility] CenterQemzpnkiet93-53-1105 08:29-0500Body temperature 98.8 [degF]Miriam Gatica ENTERTAINMENT MUSICIAN Work Phone: [facility] CenterBpomzjsypg04-38-2670 08:29-0500Body xmevkc892.78 kgBrallen Gatica ENTERTAINMENT MUSICIAN Work Phone: [facility] CenterGbhgiryoto93-12-3283 08:29-0500Diastolic blood jeirrykd65 mm[Hg]Miriam Gatica ENTERTAINMENT MUSICIAN Work Phone: [facility] CenterAobaygfrax09-35-0723 08:29-0500Heart rate74 /min Miriam Gatica ENTERTAINMENT MUSICIAN Work Phone: [facility] CenterTnueubartx07-43-8133 08:29-0500Respiratory rate22 /minBrittenrrique Gatica ENTERTAINMENT MUSICIAN Work Phone: [facility] CenterQttqcmzbxm70-55-0749 08:29-9355UgT2% (BldA) [Mass fraction]96 %Miriam Gatica ENTERTAINMENT MUSICIAN Work Phone: [facility] CenterBpsdjsasfy21-71-4978 08:29-0500Systolic blood uhijqdes748 mm[Hg]Miriam Laurageneva HOBBS Work Phone: [facility] CenterOouvfmfelc21-74-7205 11:11-0500Body temperature 97.5 [degF]Jeremiah Magaña MD Work Phone: [phone]01-16-2025 11:11-0500 Diastolic blood mm[Hg]Jeremiah Magaña MD Work Phone: 1(518)119-[address] [place], [place] 5806701-16-2025 11:11-0500 Heart rate79 /minJeremiah Magaña MD Work Phone: [phone]01-16-2025 11:11-0500 Respiratory rate18 /minJeremiah Magaña MD Work Phone: [phone]01-16-2025 11:11-0500 SaO2% (BldA) [Mass fraction]95 %Jeremiah Magaña MD Work Phone: [facility]01-16-2025 11:11-0500 Systolic blood olyskrsr055 mm[Hg]Jeremiah Magaña MD Work Phone: [facility]01-16-2025 09:33-0500 Body bcjeca119.8 cmJeremiah Magaña MD Work Phone: [phone]01-16-2025 09:33-0500 Body mass index (BMI) [Ratio]33 kg/v6PzafnJeremiah Magaña MD Work Phone: [facility]01-16-2025 09:33-0500 Body .33 kgJeremiah Magaña MD Work Phone: [phone]01-07-2025 09:29-0500 Body mass index (BMI) [Ratio]33.96 kg/m2Neftali Knowles MD Work Phone: [facility]01-07-2025 09:29-0500 Body eknwmvyjuer40.5 [degF]Neftali Knowles MD Work Phone: [facility]01-07-2025 09:29-0500 Body evweug094.37 kgJoser Benson HERNANDEZ Work Phone: [phone]01-07-2025 09:29-0500 Diastolic blood wwozdevp63 mm[Hg]Neftali Knowles MD Work Phone: [phone]01-07-2025 09:29-0500 Heart rate82 /minJoser Benson HERNANDEZ Work Phone: [phone]01-07-2025 09:29-0500 Respiratory rate18 /minJoser Benson HERNANDEZ Work Phone: [phone]-[facility]01-07-2025 09:29-0500 SaO2% (BldA) [Mass fraction]94 %Neftali Knowles MD Work Phone: [phone]01-07-2025 09:29-0500 Systolic blood ocdjqooh913 mm[Hg]Neftali Knowles MD Work Phone: [phone] [place], [place] 1707110-30-2024 08:50-0400 Body luogft003.8 cmJenniffer Sears PA Work Phone: [facility] CenterSbypsiuxnn28-56-6710 08:50-0400Body mass index (BMI) [Ratio]33.43 kg/v8BkvzvdhJenniffer Sears PA Work Phone: [facility] CenterFssigariiv57-86-7769 08:50-0400Body kbcoqy265.69 kgMattmely Sears PA Work Phone: noSaint [facility] CenterBxvgtdpken97-24-9687 08:29-0400Body ekusnn151.8 cmMiriam Gatica ENTERTAINMENT MUSICIAN Work Phone: noSaint [facility] CenterKpsenhrvqt16-84-4942 08:29-0400Body mass index (BMI) [Ratio]33.89 kg/x9Ctfpwsuv Gatica ENTERTAINMENT MUSICIAN Work Phone: noSaint [facility] Medical CenterNoqqwqvdlr74-04-6198 08:29-0400Body temperature 96.3 [degF]Miriam Cardozopatrick ENTERTAINMENT MUSICIAN Work Phone: [facility] CenterXdsnrfjpze15-98-8774 08:29-0400Body ipvtzt919.14 kgMiriam Cardozopatrick ENTERTAINMENT MUSICIAN Work Phone: [facility] CenterTdlosbczkd86-21-7094 08:29-0400Diastolic blood mm[Hg]Miriam Laurazpatrick ENTERTAINMENT MUSICIAN Work Phone: [facility] CenterQqafrxhkka23-90-0430 08:29-0400Heart rate53 /min Miriam Laurazpatrick ENTERTAINMENT MUSICIAN Work Phone: [facility] CenterSvgytpevhx24-07-1470 08:29-0400Respiratory rate16 /minMiriam Atkinstrick ENTERTAINMENT MUSICIAN Work Phone: [facility] CenterQspslzysjo42-71-9848 08:29-0489FyL9% (BldA) [Mass fraction]95 %Miriam Laurazpatrick ENTERTAINMENT MUSICIAN Work Phone: [facility] CenterBmcfxcxltf72-31-2153 08:29-0400Systolic blood mm[Hg]Miriam Atkinstrick ENTERTAINMENT MUSICIAN Work Phone: [facility] CenterAromkdtmbz30-21-0175 14:15-0400Body temperature 96.8 [degF]Jeremiah Magaña MD Work Phone: [facility]07-16-2024 14:15-0400 Diastolic blood nfphirfi38 mm[Hg]Jeremiah Magaña MD Work Phone: [facility]07-16-2024 14:15-0400 Heart rate64 /minJeremiah Magaña MD Work Phone: [facility]07-16-2024 14:15-0400 Respiratory rate17 /minJeremiah Magaña MD Work Phone: [facility]07-16-2024 14:15-0400 SaO2% (BldA) [Mass fraction]96 %Jeremiah Magaña MD Work Phone: 1(440)[address] [place], [place] 1403507-16-2024 14:15-0400 Systolic blood efhzrzpe352 mm[Hg]Jeremiah Magaña MD Work Phone: 1(290)[address] [place], [place] 1403507-16-2024 13:08-0400 Body quyixy453.8 cmJeremiah Magaña MD Work Phone: 1(280)[address] [place], [place] 1403507-16-2024 13:08-0400 Body mass index (BMI) [Ratio]33 kg/i2NgmbmJeremiah Magaña MD Work Phone: 1(330)[address] [place], [place] 1403507-16-2024 13:08-0400 Body tevrxz990.33 kgJeremiah Magaña MD Work Phone: 1(533)[address] [place], [place] 1403504-24-2024 10:30-0400 Diastolic blood gozijevx24 mm[Hg]Jeremiah Magaña MD Work Phone: 1(768)[address] [place], [place] 1403504-24-2024 10:30-0400 Heart rate71 /minJeremiah Magaña MD Work Phone: 1(755)[address] [place], [place] 1403504-24-2024 10:30-0400 Respiratory rate16 /minJeremiah Magaña MD Work Phone: 1(796)[address] [place], [place] 1403504-24-2024 10:30-0400 Systolic blood mm[Hg]Jeremiah Magaña MD Work Phone: 1([phone])[address] [place], [place] 1403504-24-2024 09:45-0400 Body pxwvbgirvsg70.2 [degF]Jeremiah Magaña MD Work Phone: 1(978)[address] [place], [place] 1403504-24-2024 09:45-0400 SaO2% (BldA) [Mass fraction]95 %Jeremiah Magaña MD Work Phone: 1(535)[address] [place], [place] 1403504-24-2024 06:39-0400 Body .8 cmJeremiah Magaña MD Work Phone: 1(571)[address] [place], [place] 1403504-24-2024 06:39-0400 Body mass index (BMI) [Ratio]33 kg/f3OgbqgJeremiah Magaña MD Work Phone: 1(763)[address] [place], [place] 1403504-24-2024 06:39-0400 Body xmmbem876.33 kgJeremiah Magaña MD Work Phone: 1(778)[address] [place], [place] 1403512-27-2023 09:30-0500 Diastolic blood ffmmjjas82 mm[Hg]Vic Mcrae MD Work Phone: 1(081)[address] [place], [place] 1403512-27-2023 09:30-0500 Heart rate62 /Corbin Mcrae MD Work Phone: 1(247)[address] [place], [place] 1403512-27-2023 09:30-0500 Respiratory rate18 /Corbin Mcrae MD Work Phone: 1(908)[address] [place], [place] 1403512-27-2023 09:30-0500 SaO2% (BldA) [Mass fraction]96 %Vic Mcrae MD Work Phone: 1(947)[address] [place], [place] 1403512-27-2023 09:30-0500 Systolic blood mm[Hg]Vic Mcrae MD Work Phone: 1(608)[address] [place], [place] 1403512-27-2023 09:10-0500 Body hkbesyfbyyy86.9 [degF]Vic Mcrae MD Work Phone: 1(785)[address] [place], [place] 1403512-27-2023 07:28-0500 Body vglbpi503.8 cmSgutierrez Mcrae MD Work Phone: 1(876)[address] [place], [place] 1403512-27-2023 07:28-0500 Body mass index (BMI) [Ratio]34.29 kg/v5FepoomVic Mcrae MD Work Phone: 1(588)[address] [place], [place] 1403512-27-2023 07:28-0500 Body ddcwoa866.41 kgVic Mcrae MD Work Phone: 1(517)[address] [place], [place] 1403507-27-2021 14:15-0400 Body ulqvcm101.8 cmVanessa Steele Work Phone: 1([phone]-CxnrqjeHenry [facility]wood [facility] Work Phone: 1(699) 793-472107-27-2021 14:15-0400Body mass index (BMI) [Ratio] 34.87 kg/j3EtqcrlveVanessa Steele Work Phone: 1(529) [phone]-CqvapckHenry Ford Kingswood Hospital Work Phone: 1(162) 880-424707-27-2021 14:15-0400Body surface area Derived from formula2.27 r9XekvdkbzVanessa Steele Work Phone: 1(968) [phone]-RdmhcodHenry Ford Kingswood Hospital Work Phone: [phone] 14:15-0400Body kxtfldvnlwa61.5 [degF] Vanessa Steele Work Phone: 1(314) [phone]-HscqhxtHenry [facility] Kingswood Hospital Work Phone: [phone] 14:15-0400Body fhqsey059.22 kgVanessa Steele Work Phone: 1(343) [phone]-MlrvwfmHenry [facility] Kingswood Hospital Work Phone: [phone] 14:15-0400Diastolic blood xfckuqmg78 mm[Hg] Vanessa Steele Work Phone: [phone]-HpewsjrHenry Ford Kingswood Hospital Work Phone: [phone] 14:15-0400Heart rate76 /minVanessa Steele Work Phone: 1([phone]-LusfrplHenry Ford Kingswood Hospital Work Phone: [phone] 14:15-0400Systolic blood mm[Hg] Vanessa Steele Work Phone: [phone]-QmgfgvgHenry Ford Kingswood Hospital Work Phone: Encounters Encounter DateEncounter TypeCare ProviderFacilityStart: 03-31-2025 End: 41-40-4924Vwoisv Ricardo Petty DPM Work Phone: [facility] PodiatryStart: 03-31-2025 End: 77-96-7497Gewubn Ricardo Petty DPM Work Phone: noms [facility]gueta PodiatryStart: 03-31-2025 End: 44-28-6189lxoideodwuZTMCVCTP A BROWNNot AvailableStart: 03-31-2025 End: 44-52-3276Drqwwt outpatient new 30 minutesJonathan Libby Chapo DPM Work Phone: noms [facility] Argueta PodiatryComment on above:DJD (degenerative joint disease), ankle and foot, left (Primary Dx); Other specified disorders of synovium, left ankle and footStart: 03-29-2025 End: 40-90-2663Hjuzaq Christina RIBEIRO Work Phone: noms [facility]opaedicsStart: 03-29-2025 End: 56-93-8876Mdywng Christina RIBEIRO Work Phone: noms [facility] OrthopaedicsStart: 03-29-2025 End: 88-76-7921zsswaacmoyDzpyEla Rosado NP-C Work Phone: [facility] Work Phone: Start: 03-29-2025 End: 59-06-3466Gywqrzg encounter procedureTomeka Rosado NP-C-[facility] [place] Work Phone: Start: 03-29-2025 End: 55-94-9219Glvgzj outpatient visit 15 minutesMaaric RIBEIRO Work Phone: noms [facility] OrthopaedicsComment on above:Acute pain of left shoulder (Primary Dx); Left rotator cuff tear arthropathy; Arthritis of left shoulderStart: 03-29-2025 End: 44-73-3798atirhrrauoPUYNUBN J MEYERNot AvailableStart: 03-28-2025 End: 63-50-7537cosaxeoqdwYCWOCKI [facility] Hospitaltart: 46-05-1967Avaoyqjans and management of inpatientOMAR [facility] Centertart: 33-58-7643Cltlognhyy and management of inpatientMEAN [facility] Memorialtart: 82-88-0110Ayzdhzyhcj and management of inpatientMATHER HOSPITALAN [facility] Memorialtart: 03-21-2025 End: 52-68-7429Mcutrjrcyd and management of inpatientRAFIK MASSOUniSelect Medical [facility] Clinic Rehabilitation Hospital, Beachwoodtart: 11-09-1410Vly-patient / Non-visitPj Hawkins DOGroup Health [facility] Work Phone: Start: 03-13-2025 End: 83-10-6128egsxdocznnZtmb J Aichholz ENTERTAINMENT MUSICIAN-C Work Phone: [facility] Work Phone: Start: 03-13-2025 End: 04-12-7494Smwbnoq encounter procedureLisa Marquis Rosado ENTERTAINMENT MUSICIAN-C-[facility] [place] Work Phone: Start: 73-38-1588Gselbom encounter procedureLisa Leeroyhholz ENTERTAINMENT MUSICIAN-C Work Phone: [facility]tart: 71-53-3014Bss- patient / Non-visitLisa Marquis Rosado ENTERTAINMENT MUSICIAN-C-[facility] [place] Work Phone: Start: 01-09-2025 End: 19-73-8721Vpeybc flowsheetLisa Aichholz ENTERTAINMENT MUSICIAN Work Phone: noms CWM FMStart: 01-09-2025 End: 70-78-7161Dqahdj flowsheetLisa Aichholz ENTERTAINMENT MUSICIAN Work Phone: noms CWM FMStart: 01-09-2025 End: 78-39-3389Udcmktxot Result EncounterLisa Aichholz ENTERTAINMENT MUSICIAN Work Phone: noms External Department UnsolicitedStart: 01-09-2025 End: 95-43-2811Wuvzdvn encounter procedureLisa Leeroyhholz ENTERTAINMENT MUSICIAN Work Phone: noms HealthcareComment on above:Encounter for subsequent annual wellness visit (AWV) in [...] hyperlipidemia ; Primary hypertension ; Left ankle swellingStart: 01-09-2025 End: 44-14-4623faxvyqbvnaVIFS AICHHOLZNot AvailableStart: 12-13-2024 End: 94-02-5004Udddmw flowsheetLisa Leeroyhyaquelinz ENTERTAINMENT MUSICIAN Work Phone: noms CWM FMStart: 12-13-2024 End: 70-43-1748Efvgbc flowsheetLisa Leeroyhholz ENTERTAINMENT MUSICIAN Work Phone: noms CWM FMStart: 12-13-2024 End: 06-83-3100Cmiyid outpatient visit 25 minutesLisa Alonzo ENTERTAINMENT MUSICIAN Work Phone: noms CWM FMComment on above:Bradycardia (Primary Dx); LLQ pain; Primary malignant neuroendocrine neoplasm of duodenum (HCC); Class 1 obesity due to excess calories with serious comorbidity in adult, unspecified BMI; Type 2 diabetes mellitus with stage 3a chronic kidney disease, without long-term current use of insulin (HCC); Diverticulitis; Primary hypertensionStart: 12-13-2024 End: 28-85-0675hrjjvwrlxqATCJ AICHHOLZNot AvailableStart: 12-13-2024 End: 66-09-9584Oqsiofdvnw hospital visit by Karen Justice PA-C Work Phone: wmh MRIComment on above:Bilateral renal cysts; Adrenal adenoma, leftStart: 92-48-3704vppmghdhijOGRDSumma Health Akron Campustart: 47-77-7820lxzocrjuwiAEGVProMedica Fostoria Community Hospital Start: 12-08-2024 End: 50-84-9689Hvmimmnkfk hospital visit by Serg Ayala MD Work Phone: w LaboratoryComment on above:Bilateral renal cysts; Adrenal adenoma, leftStart: 11-30-2024 End: 31-29-8539Exggkh flowsTanya RIBEIRO Work Phone: noms [facility] ORTHOPAEDICSStart: 11-30-2024 End: 32-01-1707Mlehom flowsTanya RIBEIRO Work Phone: noms FB ORTHOPAEDICSStart: 11-30-2024 End: 74-74-5200Yuoirw outpatient visit 15 minutesMaaric RIBEIRO Work Phone: noms FB ORTHOPAEDICSComment on above:Acute pain of left shoulder (Primary Dx); Left rotator cuff tear arthropathy; Arthritis of left shoulderStart: 11-30-2024 End: 24-64-9071qbchdprwnyFSGIRDP J MEYERNot AvailableStart: 11-28-2024 End: 22-33-5354cunzfflgreRpzt J AichholzFacility:[facility] Hospitaltart: 11-28-2024 End: 55-68-0553Zdrxzo flowsheetTomeka Rosado ENTERTAINMENT MUSICIAN Work Phone: noms CWM FMStart: 11-28-2024 End: 02-68-2186Amaeck flowsheetTomeka Rosado ENTERTAINMENT MUSICIAN Work Phone: noms CWM FMStart: 11-28-2024 End: 51-29-5237Spucfewly Result EncounterLisa Alonzo ENTERTAINMENT MUSICIAN Work Phone: noms External Department UnsolicitedStart: 11-28-2024 End: 54-44-7238Icelmotk Result EncounterLisa Alonzo ENTERTAINMENT MUSICIAN Work Phone: noms External Department UnsolicitedStart: 11-28-2024 End: 51-66-6668Yrvifm outpatient visit 25 minutesLisa Rosado ENTERTAINMENT MUSICIAN Work Phone: noms CWM FMComment on above:LLQ pain (Primary Dx); Diverticulosis of sigmoid colon; DiverticulitisStart: 11-28-2024 End: 06-40-8395dzckgpmtrfHVMY AICHHOLZNot AvailableStart: 11-22-2024 End: 24-54-9093zfvmnmeofiFYWR [facility] Hospitaltart: 10-19-2024 End: 78-71-5150RcrmnsXgxn Aichholz ENTERTAINMENT MUSICIAN Work Phone: noms CWM FMComment on above:Type 2 diabetes mellitus without complication, unspecified whether intermediate frame tender insulin useStart: 10-11-2024 End: 74-34-5457TlerlvFkat Naderer MD Work Phone: noms CWM FMComment on above:Type 2 diabetes mellitus with stage 3a chronic kidney disease, without long-term current use of insulin (HCC) (CMS/HCC)Start: 10-10-2024 End: 19-39-5831Nkdlbf flowsheetTomeka Rosado ENTERTAINMENT MUSICIAN Work Phone: noms CWM FMStart: 10-10-2024 End: 71-43-8620Ofxcsg flowsheetTomeka Rosado ENTERTAINMENT MUSICIAN Work Phone: noms CWM FMStart: 10-10-2024 End: 78-24-0258Zcejuz outpatient visit 25 minutesLisa Rosado ENTERTAINMENT MUSICIAN Work Phone: noms CWM FMComment on above:Type 2 diabetes mellitus with stage 3a chronic kidney disease, without long-term current use of insulin (HCC) (CMS/HCC) (Primary Dx); Gastroesophageal reflux disease without esophagitis; Primary malignant neuroendocrine neoplasm of duodenum (CMS/HCC); Benign prostatic hyperplasia with lower urinary tract symptoms, symptom details unspecified; Obesity (BMI 30-39.9); Morbid obesity (CMS/HCC); Gout, unspecified cause, unspecified chronicity, unspecified site; Mixed hyperlipidemia (CMS/HCC); Class 1 obesity due to excess calories with serious comorbidity in adult, unspecified BMI; Screening for prostate cancer; Diabetic polyneuropathy associated with type 2 diabetes mellitus (CMS/HCC); Primary hypertension (CMS/HCC)Start: 10-10-2024 End: 46-09-8536pbuwgowfftGFDK AICHHOLZNot AvailableStart: 08-12-2024 End: 90-88-7141Fbrmwp flowsheetJenniffer RIBEIRO Work Phone: NOCT FB ORTHOPAEDICSStart: 08-12-2024 End: 16-73-9606Cweslr flowsheetJenniffer RIBEIRO Work Phone: NOOT FB ORTHOPAEDICSStart: 08-12-2024 End: 53-68-2167Vcfstx outpatient visit 25 minutesMaaric RIBEIRO Work Phone: noms FB ORTHOPAEDICSComment on above:Acute pain of left shoulder (Primary Dx); Left rotator cuff tear arthropathyStart: 08-12-2024 End: 65-89-4708vbhbonmsjdWFKTUUD J MEYERNot AvailableStart: 07-13-2024 End: 55-28-9450Nesibv flowsheetBrittany Gatica ENTERTAINMENT MUSICIAN Work Phone: NOCG CWM FMStart: 07-13-2024 End: 87-58-4269Eumtot flowsheetBrittany Gatica ENTERTAINMENT MUSICIAN Work Phone: NOZM CWM FMStart: 07-13-2024 End: 77-18-1022Wnkixy outpatient visit 15 minutesBrittany Gatica ENTERTAINMENT MUSICIAN Work Phone: NOGT CWM FMComment on above:Primary hypertension (CMS/HCC) (Primary Dx); Type 2 diabetes mellitus with stage 3a chronic kidney disease, without long-term current use of insulin (HCC) (CMS/HCC); Stage 3a chronic kidney disease (HCC) (CMS/HCC); Mixed hyperlipidemia (CMS/HCC)Start: 07-13-2024 End: 89-19-5305asudhudcuhUDGTTYJA FITZPATRICKNot AvailableStart: 07-08-2024 End: 62-05-0609ZvrrneAyruorwn Gatica ENTERTAINMENT MUSICIAN Work Phone: NOCI CWM FMComment on above:Gastroesophageal reflux disease without esophagitisStart: 06-30-2024 End: 55-10-9629Jcvmkgydw Result EncounterGeneric External Data ProviderNOMS External Department UnsolicitedStart: 06-30-2024 End: 20-16-1773Jdoooyjwr Result EncounterGeneric External Data ProviderNOMS External Department UnsolicitedStart: 06-30-2024 End: 95-26-6419Vfxiqzcdzo hospital visit by physicianJeremiah Magaña MD Work Phone: uh [facility] – WeatherfordComment on above: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)Start: 06-30-2024 End: 31-43-9346fegqugkdlqVWOZS [facility] Hospitaltart: 06-21-2024 End: 76-30-8447Alggqw outpatient visit 40 minutesNeftali Knowles MD Work Phone: uh [facility] Care ServicesComment on above: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)Start: 06-21-2024 End: 78-40-1902tsnrylqkjvHYK [facility] Hospitaltart: 05-31-2024 End: 14-68-6387celqgjmteuPWGI [facility] Hospitaltart: 04-14-2024 End: 01-53-7703Cmqjftdrs Result EncounterBrittany Gatica ENTERTAINMENT MUSICIAN Work Phone: noms External Department UnsolicitedStart: 04-14-2024 End: 34-22-8859Ywctjofpc Result EncounterBrittany Gatica ENTERTAINMENT MUSICIAN Work Phone: noms External Department UnsolicitedStart: 04-13-2024 End: 76-19-0922Umkzap flowsTayna RIBEIRO Work Phone: noms FB ORTHOPAEDICSStart: 04-13-2024 End: 62-61-6402Sonthg flowsTanya RIBEIRO Work Phone: noms FB ORTHOPAEDICSStart: 04-13-2024 End: 22-64-3465Aggqau outpatient new 45 minutesMaaric RIBEIRO Work Phone: noms FB ORTHOPAEDICSComment on above:Acute pain of left shoulder (Primary Dx); Left rotator cuff tear arthropathyStart: 04-13-2024 End: 95-40-9761tiqptyzkcbSYRZSDB J MEYERNot AvailableStart: 04-12-2024 End: 46-07-3032Rmxhdc flowsheetBrittany Gatica ENTERTAINMENT MUSICIAN Work Phone: NOOP CWM FMStart: 04-12-2024 End: 59-53-5592Whonvv flowsheetBrittany Gatica ENTERTAINMENT MUSICIAN Work Phone: noms CWM FMStart: 04-12-2024 End: 90-32-4250Rbvvxn outpatient visit 15 minutesBrittany Gatica ENTERTAINMENT MUSICIAN Work Phone: noms CWM FMComment on above:Mixed hyperlipidemia (CMS/HCC) (Primary Dx); Primary hypertension (CMS/HCC); Type 2 diabetes mellitus with stage 3a chronic kidney disease, without long-term current use of insulin (HCC) (CMS/HCC); Gastroesophageal reflux disease without esophagitis; Stage 3a chronic kidney disease (HCC) (CMS/HCC); Obesity (BMI 30-39.9); Diabetes mellitus type 2 in obese (CMS/HCC); Left rotator cuff tear arthropathy; Chronic pain of right knee; ArthritisStart: 04-12-2024 End: 99-08-5455myztgiiqfsBGEYWMOI FITZPATRICKNot AvailableStart: 02-23-2024 End: 31-39-7885ZwyksaRqjeutsv Gatica ENTERTAINMENT MUSICIAN Work Phone: noms CWM FMComment on above:Stage 3a chronic kidney disease (HCC) (CMS/HCC); Type 2 diabetes mellitus with stage 3a chronic kidney disease, without long-term current use of insulin (HCC) (CMS/HCC)Start: 02-03-2024 End: 63-85-0292Vwqslldqg Result Nick Ayala MD Work Phone: NOM[facility] External Department UnsolicitedStart: 02-03-2024 End: 29-76-7763Dkgfljbqh Result Nick Ayala MD Work Phone: noms External Department UnsolicitedStart: 12-31-2023 End: 06-04-9762Poukbwwegj hospital visit by physicianSpedro [address] StreetComment on above:Primary malignant neuroendocrine neoplasm of duodenum (Multi)Start: 12-31-2023 End: 59-76-0962bmoirkkbofXPM M [facility] Centertart: 12-29-2023 End: 49-15-8607Svpepjyufn hospital visit by Carol Magaña MD Work Phone: [facility] Converse CountyComment on above: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)Start: 12-29-2023 End: 24-26-6302gpevxrqmusFITUTCommunity Memorial Hospitaltart: 12-28-2023 End: 56-90-1390ysfjmngrcxKBIQMJUniversity Hospitals Cleveland Medical Centertart: 20-64-9565djhxirhitoIxvou M. LueFacility:EU BellevueStart: 12-01-2023 End: 11-61-4931Vqokxiadvh hospital visit by [facility] MRIComment on above:Bilateral renal cysts; Adrenal adenoma, leftStart: 11-30-2023 End: 22-82-1452Svmtiiclnp hospital visit by Serg Ayala MD Work Phone: [facility] LaboratoryComment on above:Bilateral renal cysts; Adrenal adenoma, leftStart: 10-07-2023 End: 09-66-8469Ehkyoeesir hospital visit by Carol Magaña MD Work Phone: [facility] Converse CountyComment on above: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)Start: 10-07-2023 End: 71-88-8752lvfohcazhaKJVYVCommunity Memorial Hospitaltart: 69-89-3856YxynzdCathie Ayala MD Work Phone: noms CWM IMComment on above:Stage 3a chronic kidney disease (HCC) (CMS/HCC) (Primary Dx); Type 2 diabetes mellitus with stage 3a chronic kidney disease, without long-term current use of insulin (HCC) (CMS/HCC)Start: 29-92-6360KiywwvQdow Naderer MD Work Phone: noms CWM FMComment on above:Primary hypertension (CMS/HCC) (Primary Dx)Start: 07-28-2023 End: 37-09-2716Fjszxim encounter procedureGrace Justice PA-C Work Phone: wYANDOT Work Phone: Start: 07-28-2023 End: 07-92-4133Legkxzquen hospital visit by Karen Justice PA-C Work Phone: wmh UltrasoundComment on above:Exam for clinical trial Start: 16-90-9284hxjrfvsgcnNysla LueFacility:EU BellevueStart: 06-30-2023 ambulatoryKathy LueFacility:EU [place]uskyStart: 06-10-2023 End: 35-92-6125Zctdiwjwmf hospital visit by Blanca Mcrae MD Work Phone: [facility] Converse CountyComment on above:Primary malignant neuroendocrine neoplasm of duodenum (CMS/HCC) (Primary Dx)Start: 05-26-2023 End: 79-31-3665Mwodzxdurf hospital visit by Rufino [address]Comment on above:Primary malignant neuroendocrine neoplasm of duodenum (CMS/HCC)Start: 23-91-7849yrkggarshnQoVishal KnowlesFacility:[facility] CtrStart: 68-08-5080Lugmh Varun Steele Work Phone: [phone]-Eqvp GastroenterJackson [facility] Work Phone: Start: 04-29-2022 End: 97-79-6575imecbjtoraQpfbk DinaryFacility:9537Start: 70-29-2022HKMIVRuxltvej F Cedric Work Phone: [phone][facility] [facility] Work Phone: Start: 04-18-5656gcjekqtogcZi. Lulu Petek Facility:[id number]: 86-34-8946NECAJXulqtxqu F Corning Work Phone: [phone]-[facility] Work Phone: Start: 53-10-4241pyofwtmfkhYa. Lulu Petek Facility:9492Start: 95-45-7426njffzrtjucPb. Neftali Knowles [facility] CtrStart: 06-04-2021 End: 85-98-6240Ipmaulmcig and management of inpatientDR VANESSA STEELE Facility:R2Mpedw: 66-34-2702hqeezpfeemDt. Neftali KnowlesFacility:[facility] CtrStart: 83-27-7669Lnqlxc ReviewJonathan F Cedric Work Phone: [phone]-Vjuhsbbhpejeihdn-Jerry SJW 450 DO Work Phone: Start: 07-45-1938Ziidp UpdateJonathan F Corning Work Phone: [phone]-Obevynuvgxcsqjxk-Jrery SJW 450 DO Work Phone: Start: 25-75-6236GTCWZFhuiiron F Cedric Work Phone: [facility] Work Phone: Start: 89-36-0388Pyhgkvwaf encounterJonathan F Corning Work Phone: [phone]-Nhngocedmtzcewws-Jerry SJW 450 DO Work Phone: Start: 58-04-7574TUXBJZwyonxed F Corning Work Phone: [phone]-Wpvvfrmulxvyklch-Jerry SJW 450 DO Work Phone: Start: 43-58-2594KOOTTOqnnlccj F Corning Work Phone: [facility] Work Phone: Start: 85-14-8813Rwwnfo outpatient visit 15 minutes Vanessa Steele Work Phone: [phone]-PwzqyqqHenry [facility] Work Phone: start: 11-16-7775Plupji outpatient new 60 minutes Vanessa Steele Work Phone: [phone]-MypsaqkHenry Ford Kingswood Hospital Work Phone: start: 03-22-6059Gjolpeimp for preprocedural laboratory examinationDR XAVI Graciela [facility] HospitalStart: 11-28-2020 End: 25-19-2123sfdyimorqyLDSGI ROSIPKOFacility:D8Ybqfn: 11-26-2020 End: 54-77-6853erlowuctaaKI XAVI THOMPSONFacility:E8Ahtdh: 11-26-2020 End: 79-00-6142Etwtvskmz for preprocedural laboratory examinationDR XAVI THOMPSONFacility:L1Uofbg: 06-18-2020 End: 43-78-4054gkrgyjyldrWM VANESSA CEDRICFacility:E7Dxryn: 10-08-2018 End: 32-69-1464Mzmuwjb encounter procedureDEFAULT PHYSICIANFacility:[facility] Procedures DateProcedureProcedure DetailPerforming ClinicianStart: 15-62-1273Keqsm ankle complete minimum 3 Naye Petty DPM Work Phone: Start: 87-45-2305Vyrwmltydlmwdr aspir&/inj major jt/bursa w/usMatthew Marquis RIBEIRO Work Phone: Start: 98-68-1712Khaikf-up visitFollow-upMELINDA TUCKERStart: 71-03-2441VC ANKLE LT MIN 3VLisa Alonzo ENTERTAINMENT MUSICIAN Work Phone: Start: 68-24-7469Qetfw of urea nitrogen quantitative Grace Justice PA-C Work Phone: Start: 76-52-6085Gbximxczgezoqf aspir&/inj major jt/bursa w/usMaaric RIBEIRO Work Phone: Start: 97-73-8413ZN ABDOMEN 1VTomeka Rosado ENTERTAINMENT MUSICIAN Work Phone: Start: 24-24-8302Xqyjnja bacterial quanttative colony count urineTomeka Rosado ENTERTAINMENT MUSICIAN Work Phone: Start: 32-42-3316YTTVC CULTURE - FRMCTomeka Rosado ENTERTAINMENT MUSICIAN Work Phone: Start: 88-55-7337Mjsihbupnuztou aspir&/inj major jt/bursa w/usJenniffer RIBEIRO Work Phone: Start: 18-18-4844Zghxyphswf glycosylated e2nMwmfrwtq Gatica ENTERTAINMENT MUSICIAN Work Phone: Start: 08-64-5325Eiv transoral biopsy single/multiple Jeremiah Magaña MD Work Phone: Start: 92-59-3269Hxcdb iv surg pathology gross&microscopic examJeremiah Magaña MD Work Phone: Start: 94-49-9359Ishmpmv quantitative blood xcpt reagent stripJeremiah Magaña MD Work Phone: Start: 94-45-4865WB GLUCOSE-POCTGeneric External Data ProviderStart: 33-82-0417CZW CBC WITH AUTO DIFFBrittany Gatica ENTERTAINMENT MUSICIAN Work Phone: Start: 10-75-7864Mstccdjkybppnw aspir&/inj major jt/bursa w/o usJenniffer RIBEIRO Work Phone: Start: 32-69-3521Aojvk shoulder complete minimum 2 viewsMaaric RIBEIRO Work Phone: Start: 72-31-5914AJO HEMOGLOBIN B4NCgccpbporter Ayala MD Work Phone: Start: 90-82-7295Ycx transoral biopsy single/multiple Jeremiah Magaña MD Work Phone: Start: 81-93-0769Ucolt iv surg pathology gross&microscopic examJeremiah Magaña MD Work Phone: Start: 71-80-8861CERAZ OXIMETRY, Aundrea Magaña MD Work Phone: Start: 16-89-7064Wtmwull quantitative blood xcpt reagent stripJeremiah Magaña MD Work Phone: Start: 52-53-0509Wuifz of urea nitrogen quantitative Grace Justice PA-C Work Phone: Start: 99-74-5310XXEGHTLSH PATIENTFAZEL DINARYStart: 46-95-8800QBFLJVGNJG ULTRASOUND (UPPER)FAZEL DINARYStart: 18-31-4545PBKZWIHQ PATHOLOGY EXAMFAZEL DINARYStart: 51-62-2478DEVRE IN OUTPATIENT/HOSPITAL AMBULATORY SURGERYFAZEL DINARYStart: 20-55-2485Pfdjgze [Mass/volume] in Serum or PlasmaFAZEL DINARYStart: 24-51-9154Sdc us exam surgical alter stom duodenum/jejunumSalmara Mcrae MD Work Phone: Start: 98-23-8557Zcbsw iv surg pathology gross&microscopic examJeremiah Magaña MD Work Phone: Start: 48-99-9239Quottcf quantitative blood xcpt reagent stripJeremiah Magaña MD Work Phone: Start: 40-35-0815Xwxfmssi us procedureGrace Justice PA-C Work Phone: Start: 06-07-2017GNBXD OXIMETRY, Estefany Mcrae MD Work Phone: Start: 15-27-4953Jlh transoral biopsy single/multiple Jazlyn Mcarthur APRN-CONSERVATION SCIENCE TEACHER Work Phone: start: 32-53-7757LFDBF OXIMETRYJoshua MD Work Phone: Start: 18-91-6952Jfrwimc quantitative blood xcpt reagent stripSgutierrez Mcrae MD Work Phone: Start: 83-62-8814Bj thorax w/contrast materialJulie N Murumba CREAM TESTER-CONSERVATION SCIENCE TEACHER Work Phone: start: 90-48-4391Kkwwo 1996 panel - Serum or PlasmaStj 2Start: 37-41-8439Xjrfopz genetics counseling each 30 minutesJonathan F Cedric Work Phone: Start: 01-51-6903Esveicv genetics counseling each 30 minutesJonathan F Corning Work Phone: Start: 30-36-5715Rremwmokd of Gallbladder, Percutaneous Endoscopic ApproachDR VANESSA CELSOLERStart: 76-06-3375Icruitbcgsz Vic Mcrae MD Work Phone: AppendectomyJonathan F Cedric Work Phone: Excision of bunionJonathan F Corning Work Phone: Repair of shoulderJonathan F Cedric Work Phone: Plan of Treatment DateCare ActivityDetailAuthorStart: 80-93-8843Musurhsfp for malignant neoplasm of colonUnEast Liverpool City Hospital: 97-80-1276IYrS/Tdap/Td vaccine (3 - Td or Tdap)DTaP/Tdap/Td vaccine (3 - Td or Tdap)WYANDOTStart: 10-27-2028 DTaP/Tdap/Td Vaccines (4 - Td or Tdap)DTaP/Tdap/Td Vaccines (4 - Td or Tdap) [facility] HospitalStphiladelphia: 65-00-7604Gozwb panelLipid Panel [facility]: 01-11-2026 End: 38-55-7625Aryiwsd encounter kcbnzobxq82/30/2026 10:30 AM EDT Office Visit [facility] [address] [place] [phone] Tomeka Rosado NP [address] [place] [phone] NOMAgapito SALCIDO FMStart: 07-28-2026Medicare Annual Wellness (AWV) Medicare Annual Wellness (AWV)[facility] HealthcareStart: 41-85-0630Peyuz screening for proteinDiabetes: Urine Protein ScreeningNOWI HealthcareStart: 08-17-2025 Glaucoma screeningDiabetes: Retinopathy ScreeningNOWI HealthcareStart: 14-96-4945Mfuqlosv mellitus screeningDiabetes ScreeningUnSelect Medical TriHealth Rehabilitation HospitalStart: 03-31-2025 End: 82-36-4062Dtwzzet encounter snnmrmoao89/17/2025 1:40 PM EDT Office Visit [facility] [address] [place] [phone] Jonathan Petty DPM [address] [address] NOMAgapito Argueta PodiatryStart: 03-29-2025 End: 40-03-6519Zermiiy encounter procedureNOMS FB ORTHOPAEDICSComment on above: Acute pain of left shoulder (Primary Dx); Left rotator cuff tear arthropathy; Arthritis of left shoulderStart: 03-66-7290Ocngnqd referralSumma Health [facility] Work Phone: Start: 03-13-2025 End: 62-76-3467Idlvrdq encounter jiirxpntb05/29/2025 9:00 AM EDT Office Visit [facility] [address] [place] [address] Tomeka Rosado NP [address] [place] [address] NOMAgapito SALCIDO FMStart: 54-48-5363Ylaaytbfmz A1c measurement Diabetes: Hemoglobin U4OPBUY HealthcareStart: 14-73-4845WDKBK-19 Vaccine ( season)COVID-19 Vaccine ( season)[facility] HospitalStart: 75-79-4428Bwavxkujf vaccinationInfluenza Vaccine (#1)[facility] HealthcareStart: 01-31-2025 End: 04-92-6398Ctukrah encounter /19/2025 9:40 AM EDT Office Visit [facility] [address] [place] [phone] [place] [address] [address], [place] [phone] [facility] Hospitaltart: 42-84-4062Gpsqceydr vaccinationDayton VA Medical Centertart: 01-09-2025 End: 02-64-6566XU Ankle - left 3 ViewsXR ankle 3+ views left Imaging Routine Left ankle swelling Expected: 01/09/2025, Expires: 01/09/2026NOWI Healthcare Work Phone: Comment on above:Expected: 01/09/2025, Expires: 01/09/2026Start: 01-09-2025 End: 32-82-6057Kigwpcd encounter procedureNOMS [facility] FMComment on above:Encounter for subsequent annual wellness visit (AWV) in Medicare patient (Primary Dx); NSVT (nonsustained ventricular tachycardia) (HCC); Bradycardia; Stage 3a chronic kidney disease (CMS-HCC); Type 2 diabetes mellitus with stage 3a chronic kidney disease, without long-term current use of insulin (HCC); Class 1 obesity due to excess calories with serious comorbidity in adult, unspecified BMI; 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HCC); Left adrenal mass (HCC); Mixed hyperlipidemiaStart: 00-38-6389Bsxibdzi mellitus screeningDiabetes ScreeningJ.W. Ruby Memorial HospitalStart: 12-27-2024 EsophagogastroduodenoscopyEGDUniKettering Health Greene MemorialStart: 12-20-2024 End: 90-37-1470Xqrxgqh encounter npkgwanxs43/08/2025 10:15 AM EDT Office Visit [facility] [place] [address] [place] [address] Grace Justice PA-C [address] [place] [address] 1 year f/u with MRI [facility] Main CampusComment on above:1 year f/u with MRI Start: 12-13-2024 End: 98-71-9555Upycffk encounter procedureNOINTEGRIS S[facility] FMComment on above:Bilateral renal cystLLQ pain (Primary Dx); Primary malignant neuroendocrine neoplasm of duodenum (HCC); Class 1 obesity due to excess calories with serious comorbidity in adult, unspecified BMI; Type 2 diabetes mellitus with stage 3a chronic kidney disease, without long-term current use of insulin (HCC); DiverticulitisStart: 12-09-2024 End: 97-30-7616Qlvhltb encounter oingishxw39/27/2025 9:00 AM EDT Office Visit [facility] [address] [place] [phone] Jenniffer Sears PA [address] [facility] [address] [place] [address] NOMS ORTHOPAEDICSStart: 11-30-2024 End: 98-02-3082Lrweakg encounter procedureNOMS ORTHOPAEDICSComment on above: Acute pain of left shoulder (Primary Dx); Left rotator cuff tear arthropathyStart: 02-73-3580BLE test (Diabetes, CKD 3-4, OR last GFR 15-59)GFR test (Diabetes, CKD 3-4, OR last GFR 15-59)WYANDOTStart: 11-28-2024 End: 84-21-9654Jfklpfqm identified in Urine by CultureExcelsior Springs Medical CenterComment on above:Expected: 11/28/2024 (Approximate), Expires: 11/28/2025Start: 11-28-2024 End: 37-06-6898UPW W Auto Differential panel - BloodCBC and differential Lab Routine Diverticulosis of sigmoid colon LLQ pain Expected: 11/28/2024 (Appr oximate), Expires: 11/28/2025NOSaint [facility] Work Phone: Comment on above:Expected: 11/28/2024 (Approximate), Expires: 11/28/2025Start: 11-28-2024 End: 34-90-7986Thmjimnatnitq metabolic 2000 panel - Serum or PlasmaComprehensive metabolic panel Lab Routine Diverticulosis of sigmoid colon LLQ pain Expected: 11/28/2024 (Approximate), Expires: 11/28/2025NOWI HealthcareComment on above: Expected: 11/28/2024 (Approximate), Expires: 11/28/2025Start: 11-28-2024 End: 13-04-3344Budmpnmdbab sedimentation rateSedimentation rate, automated Lab Routine Diverticulosis of sigmoid colon LLQ pain Expected: 11/28/2024 (Approximate), Expires: 11/28/2025NOWI HealthcareComment on above:Expected: 11/28/2024 (Approximate), Expires: 11/28/2025Start: 11-28-2024 End: 81-92-1251Ychgmmv encounter fnsuedpvx24/16/2025 2:00 PM EDT Office Visit [facility] [address] [place] [address] Tomeka Rosado, ENTERTAINMENT MUSICIAN [address] [place] [address] ArrivedKAISER FOUNDATION [facility] FMComment on above:ArrivedStart: 11-28-2024 End: 11-00-5898Nmegwchqqr complete panel - UrineUrinalysis with reflex microscopic (clean catch) Lab Routine Diverticulosis of sigmoid colon LLQ pain Expected: 11/28/2024 (Approximate), Expires: 11/28/2025[facility] HealthcareComment on above:Expected: 11/28/2024 (Approximate), Expires: 11/28/2025Start: 10-11-2024 Hemoglobin A1c measurementDiabetes: Hemoglobin D4COGNF HealthcareStart: 10-10-2024 End: 28-80-5758Jbgcw metabolic 1997 panel - Serum or PlasmaBasic metabolic panel Lab Routine Type 2 diabetes mellitus with stage 3a chronic kidney disease, wit hout long-term current use of insulin (HCC) ([facility]/HCC) Expected: 10/10/2024 (Approximate), Expires: 10/10/2025[facility] Healthcare Work Phone: Comment on above:Expected: 10/10/2024 (Approximate), Expires: 10/10/2025Start: 10-10-2024 End: 47-92-7462Ovzhjmqcxl A1c/Hemoglobin.total in BloodHemoglobin A1c Lab Routine Screening for prostate cancer Expected: 10/10/2024 (Approximate), Expires: 10/10/2025[facility] HealthcareComment on above:Expected: 10/10/2024 (Approximate), Expires: 10/10/2025Start: 10-10-2024 End: 03-52-2395Qriqpovkbmfa/Creatinine panel in random UrineMicroalbumin / creatinine, urine ratio Lab Routine Type 2 diabetes mellitus with stage 3a chronic kidney disease, without long-term current use of insulin (HCC) (CMS/HCC) Expected: 10/10/2024 (Approximate), Expires: 10/10/2025[facility] HealthcareComment on above:Expected: 10/10/2024 (Approximate), Expires: 10/10/2025Start: 10-10-2024 End: 73-07-0675Tjbhy [Mass/volume] in Serum or PlasmaUric acid Lab Routine Mixed hyperlipidemia (CMS/HCC) Expected: 10/10/2024 (Approximate), Expires: [facility] HealthcareComment on above:Expected: 10/10/2024 (Approximate), Expires: 10/10/2025Start: 10-10-2024 End: 14-97-3933Jnkyhkmavr complete panel - UrineUrinalysis with reflex microscopic (clean catch) Lab Routine Type 2 diabetes mellitus with stage 3a chronic kidney disease, without long-term current use of insulin (HCC) (CMS/HCC) Expected: 10/10/2024 (Approximate), Expires: 10/10/2025[facility] HealthcareComment on above:Expected: 10/10/2024 (Approximate), Expires: 10/10/2025Start: 10-10-2024 End: 67-79-2130Aapxazh encounter procedureNOMS CWM FMComment on above: Gastroesophageal reflux disease without esophagitis [...] in adult, unspecified BMI; Screening for prostate cancerStart: 08-15-2468Afhquzhq mellitus screening Diabetes ScreeningJ.W. Ruby Memorial HospitalStart: 08-12-2024 End: 62-83-2091Xvpiyfe encounter procedureNOMS FB ORTHOPAEDICSComment on above: Acute pain of left shoulder (Primary Dx)Start: 07-13-2024 End: 34-88-7228Nsyvmmq encounter procedureNOMS CWM FMComment on above:Arrived Start: 45-87-5160JkaumvhwmnvidmjebrvxocjzhdVLBOixbolhujp [facility] Start: 06-21-2024 End: 94-89-9150Xwkhdqu encounter oipjoofli50/07/2025 9:40 AM EST Office Visit [facility] [address] [place] [address] [place] [address] [place], [place] [phone] [facility] Hospitaltart: 27-70-8401Lslgnrtx mellitus screeningDiabetes ScreeningTrumbull Regional Medical Center: 09-13-6734Gdylboayvj A1c measurementDiabetes: Hemoglobin J9VOQBGSaint Francis Medical CenterStart: 04-13-2024 End: 54-82-4012Uxqmznj encounter mllsdkotj35/30/2024 9:00 AM EDT Office Visit [facility] [address] [place] [address] Jenniffer Sears PA [address] [address] Acute pain of left shoulder (Primary Dx); Left rotator cuff tear arthropathy; Chronic pain of right knee; ArthritisNOMS FB ORTHOPAEDICS Comment on above:Acute pain of left shoulder (Primary Dx); Left rotator cuff tear arthropathy; Chronic pain of right knee; ArthritisStart: 04-12-2024 End: 57-51-6175QVM W Auto Differential panel - BloodCBC and differential Lab Routine Primary hypertension ([facility]/HCC) Type 2 diabetes mellitus with lunfh3j chronic kidney disease, without long-term current use of insulin (HCC) ([facility]/HCC) Stage 3a chronic kidney disease (HCC) ([facility]/HCC) Expected: 04/12/2024 (Approximate), Expires: 04/12/2025NOMS HealthcareComment on above:Expected: 04/12/2024 (Approximate), Expires: 04/12/2025Start: 04-12-2024 End: 97-04-4972Toqgfwhtymfnh metabolic 2000 panel - Serum or PlasmaComprehensive metabolic panel Lab Routine Primary hypertension ([facility]/HCC) Type 2 diabetes mellitus with stage 3a chronic kidney disease, without long-term current use of insulin (HCC) ([facility]/HCC) Stage 3a chronic kidney disease (HCC) ([facility]/HCC) Expected: 04/12/2024 (Approximate), Expires: 04/12/2025NOMS HealthcareComment on above:Expected: 04/12/2024 (Approximate), Expires: 04/12/2025Start: 04-12-2024 End: 23-93-9340Bryubpcgqv A1c/Hemoglobin.total in BloodHemoglobin A1c Lab Routine Type 2 diabetes mellitus with stage 3a chronic kidney disease, without long-term current use of insulin (HCC) ([facility]/HCC) Expected: 04/12/2024 (Approximate), Expires: 04/12/2025NOMS HealthcareComment on above:Expected: 04/12/2024 (Approximate), Expires: 04/12/2025Start: 04-12-2024 End: 89-19-9924Sacwy 1996 panel - Serum or PlasmaLipid panel Lab Routine Mixed hyperlipidemia ([facility]/HCC) Expected: 04/12/2024 (Approximate), Expires:04/12/2025 NOMS HealthcareComment on above:Expected: 04/12/2024 (Approximate), Expires: 04/12/2025Start: 04-12-2024 End: 39-40-8559Zduqfdf encounter procedureNOMS CWM FMComment on above:Arrived Start: 89-87-8742Mgjspaeyuci Syncytial Virus (RSV) or age 60 yrs+ (1 - 1-dose 75+ series)Respiratory Syncytial Virus (RSV) or age 60 yrs+ (1 - 1-dose 75+ series)[facility] Centertart: 08-80-9902Vpcvr screening for proteinDiabetes: Urine Protein ScreeningNOSaint Francis Medical CenterStart: 02-25-2024 Medicare Annual Wellness (AWV)Medicare Annual Wellness (AWV)[facility] Start: 96-79-8752FIMHI-19 Vaccine ( season)COVID-19 Vaccine ( season)[facility] HospitalStart: 38-35-1478RQDXZ-19 Vaccine ( season)COVID-19 Vaccine ( season)[facility] Centertart: 62-21-6471Klahlwyru vaccinationInfluenza Vaccine (#1) [facility] CenterStart: 12-31-2023 End: 69-91-6754Khluydw encounter wmaqtqdku33/18/2024 7:30 AM EDT Appointment [facility] [address] [place] [address] [facility]: 12-07-2023 End: 03-54-7770Rbwbwav encounter /24/2024 10:30 AM EDT Office Visit [facility] on [address] [address] Grace Justice PA-C [address] [place] [address] [address] 3 month f/u with MRI and PVRWyandot Specialty Providers on [facility] SouthComment on above:3 month f/u with MRI and PVRStart: 62-57-3368Zttnottitk hospital visit by physician 12/01/2023 9:30 AM EDT Hospital Encounter [facility] MRI [address] [place] [address] [facility] MRIStart: 22-54-5161Ligfpmzkwg A1c measurementDiabetes: Hemoglobin U7TYHOYExcelsior Springs Medical CenterStart: 29-48-6912IXFBX-19 Vaccine ( season)COVID-19 Vaccine ( season)[facility] HospitalStart: 08-11-2023 End: 42-48-3114Uejsacs encounter cehjvppii43/27/2024 9:15 AM EST Office Visit [facility] [address] [place] [address] Shaikh Ayala MD [address] [place] [address] NOMS LOLY IMStart: 26-98-0312Tsrrzg Wellness Visit (Medicare) Annual Wellness Visit (Medicare)WYANDOTStart: 07-31-2023 End: 53-02-8587Npyqhpb encounter nmeckpias09/16/2024 9:30 AM EST Office Visit [facility] [place] [id number] Grace Justice, PAArchana [address] [place] [address] [address] N28.1 - Renal cyst, leftWyandot Specialty Providers on [facility] SouthComment on above:N28.1 - Renal cyst, leftStart: 39-07-6919EYUFT-19 Vaccine (4 - Pfizer series)COVID-19 Vaccine (4 - Pfizer series)[facility] HospitalStart: 06-18-2023 End: 54-16-1503Gpsorry encounter zcjzeoege95/04/2024 12:40 PM EST Office Visit [facility] [address] [place] [address] [place] [address] [place], [place] [phone] [facility] CenterStart: 06-10-2023 End: 21-77-7221Cqyrtsg encounter /27/2023 8:30 AM EST Appointment [facility] [address] [address] x1 [place] [address] [place] [address] [facility]: 00-85-7696Suhkjgfy mellitus screeningDiabetes ScreeningUnSelect Medical TriHealth Rehabilitation HospitalStart: 96-48-4052WNEPVU, Provider: Jeremiah Magaña, Status: Pen, Time: 7:30 AMEGDANS, Provider: Jeremiah Magaña, Status: Pen, Time: 7:30 AM JQ-Jyixofxy-Zhiywvnz 1500 Work Phone: Start: 38-47-8575MCZ, Provider: Deb Zavala, Status: Pen, Time: 11:20 AMNPV, Provider: Deb Zavala, Status: Pen, Time: 11:20 AM UH-Nbqrgbcn-Cksnedrx 1500 Work Phone: Start: 78-24-5765Anana screening for proteinDiabetes: Urine Protein ScreeningNOWI HealthcareStart: 96-35-3544YSCWXA, Provider: Irwin Cespedes, Status: Pen, Time: 8:30 AMEGDANS, Provider: Irwin Cespedes, Status: Pen, Time: 8:30 OKID-Raiwjpaefpfwavpj-Mirlyrry SJW 450 DO Work Phone: Start: 29-52-1677EHOFNK, Provider: Irwin Cespedes, Status: Pen, Time: 10:30 AMEUSANS, Provider: Irwin Cespedes, Status: Pen, Time: 10:30 AMOhio[facility] Work Phone: Start: 08-15-3711Qwdiqtfh screeningDiabetes: Retinopathy ScreeningNOMS HealthcareStart: 94-08-4077Dnhpruef vaccine (2 of 3) Shingles vaccine (2 of 3)WYANDOTStart: 28-57-7272Cunbpt Vaccines (2 of 3)Zoster Vaccines (2 of 3)[facility]: 94-15-8458Ufbwdwhbs aortic aneurysm screeningAbdominal Aortic Aneurysm (AAA) ScreeningTrumbull Regional Medical Center: 57-94-4988Pxyfezvci B Vaccines (1 of 3 - Risk 3- dose series)Hepatitis B Vaccines (1 of 3 - Risk 3-dose series)[facility]: 33-88-9547Qejquajudty Syncytial Virus (RSV) or age 60 yrs+ (1 - 1-dose 60+ series)Respiratory Syncytial Virus (RSV) or age 60 yrs+ (1 - 1-dose 60+ series)WYANDOTStart: 53-16-6115BLI patients and/or patients aged 60+ years (1 - 1-dose 60+ series)RSV patients and/or patients aged 60+ years (1 - 1-dose 60+ series) [facility]: 09-87-5453Udotfkmwy for malignant neoplasm of colonWYANDOTStart: 77-21-2449Jctzn panelLipidsWATRIUM HEALTHtart: 56-62-2810Ixnjejjar A Vaccines (1 of 2 - Risk 2-dose series)Hepatitis A Vaccines (1 of 2 - Risk 2-dose series)[facility]: 1967 Hepatitis C screeningTrumbull Regional Medical Center: 1961 Depression ScreenDepression ScreenWProvidence Healthrt: 71-74-9666Pzqxb panelLipids WYYAVAPAI REGIONAL MEDICAL CENTEROTStart: 1949Medicare Annual Wellness VisitMedicare Annual Wellness Visit (AWV)[facility]: 89-59-2327Aezaaowqf for malignant neoplasm of colonUnSelect Medical TriHealth Rehabilitation Hospital End: 98-61-9899ZP Chest and Abdomen and Pelvis W contrast [facility] Service Area Work Phone: comment on above:Once for 1 Occurrences starting 05/26/2023 until 05/26/2023 End: 76-08-0371TO Chest W contrast [facility] Service Area Work Phone: comment on above:Once for 1 Occurrences starting 12/31/2023 until 12/31/2023Microalbumin/Creatinine panel in random Urine Microalbumin / creatinine urine ratio Lab Routine Primary hypertension (CMS/HCC) Type 2 diabetes mellitus with stage 3a chronic kidney disease, without long- term current use of insulin (HCC) (CMS/HCC) Stage 3a chronic kidney disease (HCC) (CMS/HCC) Ordered: 04/12/2024[facility] Work Phone: Comment on above:Ordered: 04/12/2024 End: 02-08-0239Khcbenlf SedationModerate Sedation Procedures Routine Once for 1 Occurrences starting 10/07/2023 until 10/07/2023[facility] Work Phone: Comment on above:Once for 1 Occurrences starting 10/07/2023 until 10/07/2023 End: 27-04-3202Ceuiiify SedationModerate Sedation Procedures Routine Once for 1 Occurrences starting 12/29/2023 until 12/29/2023[facility] Service Area Work Phone: Comment on above:Once for 1 Occurrences starting 12/29/2023 until 12/29/2023 End: 64-12-9208EO Abdomen WO and W contrast [facility]FAIRFIELD [facility]ICAL [facility] Work Phone: comment on above:1 Occurrences starting 12/01/2023 until 12/01/2023 End: 42-07-2030MH Abdomen WO and W contrast [facility] Work Phone: comment on above:1 Occurrences starting 12/13/2024 until 12/13/2024Patient [facility] Work Phone: End: 19-86-3050Oxijb oximetry, continuousPulse oximetry, continuous Respiratory Care Routine Continuous until discontinued starting 10/07/2023[facility] Work Phone: Comment on above:Continuous until discontinued starting 10/07/2023 End: 05-70-5864Kiqzm oximetry, spotPulse oximetry, spot Respiratory Care Routine Once for 1 Occurrences starting 10/07/2023 until 10/07/2023[facility] Service Area Work Phone: Comment on above:Once for 1 Occurrences starting 10/07/2023 until 10/07/2023Surgical [facility]PRES[facility] Work Phone: Comment on above:Release Upon Ordering for 1 Occurrences starting 06/10/2023Release Upon Ordering for 1 Occurrences starting 06/10/2023, 1 completedSurgical pathology [facility] Work Phone: Comvpmt on above:Release Upon Ordering for 1 Occurrences starting 10/07/2023, 1 completedSurgical pathology [facility] Work Phone: Comment on above:Release Upon Ordering for 1 Occurrences starting 12/29/2023, 1 completedSurgical pathology [facility] Work Phone: Comment on above:Release Upon Ordering for 1 Occurrences starting 06/30/2024, 1 [facility] Lab Routine 11/28/2024 2:55 PM [facility] Work Phone: Immunizations Immunization DateImmunizationNotesCare RoxuwypsUmoidaaf15-71-8529NCX, recombinant, protein subunit RSVpreF, adjuvant reconstitu, 120mcg/0.5mL, PF (Arexvy)Tomeka Rosado ENTERTAINMENT MUSICIAN Work Phone: Mand[employer] TechnologiesSaint Francis Medical CenterZwapwehfzg59-84-1005Cxfommxw trivalent influenza vaccine, adjuvanted, preservative freeTomeka Rosado ENTERTAINMENT MUSICIAN Work Phone: [facility] CenterXmuanfvddx92-96-2926erocswudk virus vaccine, unspecified formulationMiriam Gatica ENTERTAINMENT MUSICIAN Work Phone: [facility] CenterLxrovzwvyx95-05-1922Kxiqdxbec, High-dose Seasonal, Quadrivalent, Preservative FreeGerald Low MD Work Phone: noSaint Francis Medical CenterHrzlnlxfqb87-18-3054uelxxqfnm virus vaccine, unspecified formulationJeremiah Magaña MD Work Phone: [facility] Work Phone: [phone] polysaccharide vaccine, 23 valentGerald Low MD Work Phone: [place] [phone]yudfh, High-dose Seasonal, Quadrivalent, Preservative FreeGerald Low MD Work Phone: [facility] CenterBpvfzaeiof52-52-2926Ypfafyzjb 30 MCG/0.3ML Intramuscular SuspensionJonathan F Cedric Work Phone: [phone]-Taqrsxnu-[place] [address] Work Phone: [phone]-YbbBWdqv COVID-19 Vacc 30 MCG/0.3ML Intramuscular SuspensionJonathan F Cedric Work Phone: [phone]-Bgpgzhmv-[place] [address] Work Phone: [phone] High-Dose Quadrivalent 0.7 ML Intramuscular Suspension Prefilled SyringeVanessa F Cedric Work Phone: [phone]-Bnvhfdyb-[place] [address] Work Phone: [phone]-GwzGTppt COVID-19 Vacc 30 MCG/0.3ML Intramuscular SuspensionVanessa F Corning Work Phone: [phone]-OvpvqabAscension Borgess Hospital Work Phone: [phone]-UllVOaff COVID-19 Vacc 30 MCG/0.3ML Intramuscular SuspensionVanessa F Cedric Work Phone: [phone]-OsheyxvAscension Borgess Hospital Work Phone: [phone] High-Dose Quadrivalent 0.7 ML Intramuscular Suspension Prefilled SyringeJeanienathan F Corning Work Phone: [phone]-OltdxreAscension Borgess Hospital Work Phone: [phone], high dose seasonal, preservative-freeVanessa Dey Corning Work Phone: [phone]-SuvfjawAscension Borgess Hospital Work Phone: [phone] conjugate vaccine, 13 valent Vanessatoñito Steele Work Phone: [phone]-HmygantAscension Borgess Hospital Work Phone: [phone] and diphtheria toxoids, adsorbed, preservative free, for adult use (2 Lf of tetanus toxoid and 2 Lf of diphtheria toxoid)Gerald Low MD Work Phone: [place] [phone]mfx toxoid, reduced diphtheria toxoid, and acellular pertussis vaccine, adsorbedJonathan F Cedric Work Phone: ZU-TuomsuvAscension Borgess Hospital Work Phone: [phone] conjugate vaccine, 13 valent Vanessaabhi Pennyler Work Phone: GR-EvahyrnAscension Borgess Hospital Work Phone: [phone], high dose seasonal, preservative-freeJonathan F Cedric Work Phone: DY-VvzlnwkAscension Borgess Hospital Work Phone: [phone], high dose seasonal, preservative-freeJonathan F Cedric Work Phone: LN-LfzbkuoAscension Borgess Hospital Work Phone: [phone] vaccine, liveJonathan F Corning Work Phone: TG-DioosmjAscension [facility]ess Hospital Work Phone: [phone] vaccine, liveJonathan F Cedric Work Phone: NR-NxluarkAscension Borgess Hospital Work Phone: [phone], seasonal, injectable, preservative freeJonathan F Cedric Work Phone: XQ-HwvlrnrAscension Borgess Hospital Work Phone: [phone], seasonal, injectable, preservative freeJonathan F Corning Work Phone: ZN-PxpbfvmAscension Borgess Hospital Work Phone: [phone] toxoid, reduced diphtheria toxoid, and acellular pertussis vaccine, adsorbedVanessa Steele Work Phone: [phone]-LttgyrpAscension Borgess Hospital Work Phone: [phone] xfgmxanhp-A6A9-66, preservative-free, injectableVanessa Steele Work Phone: [phone]-LluhuqoAscension Borgess Hospital Work Phone: [phone] polysaccharide vaccine, 23 valentVanessa Steele Work Phone: [phone]-UqmlvflAscension Borgess Hospital Work Phone: Payers DatePayer CategoryPayerPolicy [id number]-pay2017Medicare [id number] 2017MedicaidCIGNA MEDICARE ADVANTAGE [id number] 2017Medicare (Managed Care) GENERIC MEDICARE ADVANTAGE .[id number] Private Health [id number] [id number] 2.16.840.1.039329.3.57[id number] 2.16.840.1.347547.3.57[id number] 2.16.840.1.023355.3.57[id number] 2.16.840.1.514199.3.57[id number] 2.16.840.1.324553.3.57[id number] 2.16.840.1.045101.3.57[id number] 2.16.840.1.424861.3.579.2.0[id number] 2.16.840.1.403850.3.57[id number] 2.16.840.1.932125.3.57[id number] 2.16.840.1.177905.3.57[id number] 2.16.840.1.992691.3.579.2.651056-52-8456Epxpkza91862281 2.16.840.1.224944.3.57[id number] 2.16.840.1.043092.3.57[id number] 2.16.840.1.807471.3.579.2.933633-61-7374Pymhxqj32603506 2.16.840.1.339633.3.579.2.522043-35-9938Xaxdivv60740901 2.16.840.1.511856.3.57[id number] 2.16.840.1.136334.3.579.[id number] 2.16.840.1.150649.3.579.2.026009-69-9435Rhnptmf58589338 2.16840.1.025686.3.579.2.05187-39-4891Qasqauk95470584 2.16.840.1.482133.3.57[id number] 2.16.840.1.661461.3.579.2.725439-68-7334Nlxghoa11014125 2.16.840.1.595677.3.57[id number] 2.16.840.1.187099.3.579.2.941233-95-1062Dbeajbe01511377 2.16.840.1.788034.3.579.2.828670-03-8364Vbatrgq01359097 2.16.840.1.770070.3.579.2.225786-10-0175Mvpvund72682380 2.16.840.1.181554.3.579.2.758423-35-4404Iefcqwu73932475 2..840.1.361383.3.579.2.206341-79-8944Vsspjjc9484151 2.16.840.1.328530.3.579.2.361728-07-1420Pxeifpx1874218 2.16.840.1.717682.3.579.2.286351-62-5689Atnbcjp4109953 2.16.840.1.683636.3.579.2.675983-13-8049Yxhlwlw0232611 2.16.840.1.417171.3.579.2.244819-01-1871Gtnofdo7633803 2..840.1.752466.3.579.2.981842-15-5186Mdosmkn0050403 2.840.1.121398.3.579.2.922179-32-6686Ewqoneh Health [id number] [id number] 2.840.1.077564.3.579.2.531 Social History DateTypeDetailFacilityStart: 06-10-2023 End: 27-14-2722Dys-smokerNon-smokerExcelsior Springs Medical CenterTobacco smoking status NHIS Tobacco smoking consumption unknownJ.W. [facility] Work Phone: Start: 53-84-7748Naq Assigned At BirthNot on [facility] Work Phone: Start: 06-10-2023 End: 96-91-5762Yqjavo identityNot on [facility] HospitalStart: 05-12-2023 End: 61-57-2774Dzbareyq to SARS-CoV-2 (event)Not sureJ.W. Ruby Memorial HospitalStart: 06-10-2023 End: 00-71-1783Gtrwhkg smoking status NHISEx-smokerJ.W. Ruby Memorial Hospital Work Phone: Start: 06-15-1969 End: 15-60-1980Hlhdyza of tobacco useCurrent smokerJ.W. [facility] Hospital Work Phone: Start: 06-15-1969 End: 72-77-9994Oketoxk of tobacco useCigarette SmokerJ.W. Ruby Memorial Hospital Work Phone: Start: 06-10-2023 End: 08-03-2217Fulktkz use and exposureSmokeless tobacco non-userJ.W. [facility] Hospital Work Phone: Start: 06-10-2023 End: 15-88-9037Puqcnvc intakeCurrent drinker of alcohol (finding)[facility] Work Phone: Start: 22-13-7259Ntftvza CommentSocialJ.W. [facility] Hospital Work Phone: Within the last year, have you been afraid of your partner or ex-partner?NoNOMS HealthcareStart: 05-10-2022 End: 24-03-9185Nso often do you attend anglican or jewish services?Patient refusedNOMS HealthcareAre you now , , , , never or living with a partner?MarriedNOMS HealthcareHow often to you have a drink containing alcohol?Monthly or lessNOMS HealthcareHow many standard drinks containing alcohol do you have on a typical day?1 or 2NOMS HealthcareHow often do you have 6 or more drinks on 1 occasion?MonthlyNOMS HealthcareDo you feel stress - tense, restless, nervous, or anxious, or unable to sleep at night because yourmind is troubled all the time - these days [OSQ]Only a littleNOMS Healthcare(I/We) worried whether (my/our) food would run out before (I/we) got money to buy more.Never trueNOMS HealthcareStart: 97-35-5231Fszzxjt Comment caffeine: noneNOMS HealthcareStart: 49-77-0523Ngbohw identityIdentifies as male gender (finding)NOMS HealthcareStart: 75-72-0361Tjktom orientationHeterosexual (finding)[facility] HospitalStart: 78-65-1885Qkiamds smoking status NHISNever smoked tobaccoWYANDOT Work Phone: start: 09-07-2023 End: 63-39-3888Msimwzn intakeEx-drinker (finding)[facility] Work Phone: start: 58-88-6367Gcmjolv CommentOCCASSIONA;[facility] HealthcareStart: 48-10-8326Ldjruoz CommentOCCASSIONALINTERMOUNTAIN MEDICAL CENTER HealthcareStart: 24-79-4464Vwf assigned at [facility] Work Phone: How often do you have 6 or more drinks on 1 occasion? NeverNOMS HealthcareHow often do you need to have someone help you when you read instructions, pamphlets, or other written material from your doctor or pharmacy [SILS]RarelyNOWI HealthcareStart: 34-25-7717YahDhmz (finding)[facility] HospitalNEGATED: Highlighted rowStart: NINFHistory of tobacco usePassive smoker [facility] Medical Equipment Procedure CodeEquipment CodeEquipment Original TextEquipment IdentifierDates Generic Supply 08 Case [id number]: 61-97-5781Heavpmm on above: Description: Converted from [facility]. Please see archived information for full log information.USE DIRECTED ONCE [id number]: 06-22-2023 End: 51-15-1018DFM DIRECTED ONCE [id number]: each by Other route Daily dailyUse as [id number]: 10-19-2024 End: 01-27-2025 Functional Status JbfxIhxjndplraTyhofsTurslqwh90-89-6908Xwscmug Health Questionnaire 2 item (PHQ- 2) [Reported][facility] CenterIjpmsmbfwv67-59-3642LqiigppnhmJ.[facility]. [facility] Work Phone: [phone] - suicide severity rating scale screener - recent [C-SSRS][facility] Work Phone: [phone].W. [facility] Hospital Work Phone: [phone] - suicide severity rating scale screener - recent [C-SSRS][facility] Work Phone: [phone].[facility]. [facility] Hospital Work Phone: [facility] Mental Status VvpxZzsqsciwndFurmqjRvvwghrf70-75-4910Ryavwnkwf function findingNegative 12/29/2023 2:25 PM EDT Subha Urrutia, ALONSO [facility] Clinical Notes 11-28-2020 to 03-31-2025 Note Date & YlohPoxrMbkkhhtj05-72-8534 History of Present illness Narrative* Jonathan Petty DPM - 03/31/2025 1:40 PM EDT Patient: Yusef Car : 1950 PCP: Gerald Low MD [...] Strain: Low Risk (03/21/2025) Received from [facility] Overall Financial Resource Strain (CARDIA) Difficulty of Paying Living Expenses: Not hard at all Food Insecurity: No Food Insecurity (03/21/2025) Received from [facility] Hunger Vital Sign Within the past 12 months, you worried that your food would run out before you got the money to buymore.: Never true Ran Out of Food in the Last Year: Not on file Transportation Needs: No Transportation Needs (03/21/2025) Received from [facility] Transportation In the past 12 months, has lack of transportation kept you from medical appointments or from getting medications?: No Lack of Transportation (Non-Medical): Not on file Physical Activity: Insufficiently Active (07/06/2024) Exercise Vital Sign Days of Exercise per Week: 2 days Minutes of Exercise per Session: 30 min Stress: No Stress Concern Present (07/06/2024) [employer] - Occupational Stress Questionnaire Feeling of Stress : Only a little Social Connections: Unknown (07/06/2024) Social Connection and Isolation Panel Frequency of Communication with Friends and Family: More than three times a week Frequency of Social Gatherings with Friends and Family: Once a week Attends Congregation Services: Patient declined Active Member of Clubs or Organizations: No Attends Club or Organization Meetings: Never Marital Status: Intimate Partner Violence: Unknown (03/21/2025) Received from [facility] Humiliation, Afraid, Rape, and Kick questionnaire Within the last year, have you been afraid of your partner or ex-partner?: No Emotionally Abused: Not on file Physically Abused: Not on file Sexually Abused: Not on file Housing Stability: Low Risk (03/21/2025) Received from [facility] Housing Stability Vital Sign In the last 12 months, was there a time when you were not able to pay the mortgage or rent on time?: No In the past 12 months, how many times have you moved where you were living?: 0 At any time in the past 12 months, were you homeless or living in a senior living (including now)?: No ROS: General: denies fever, [...] This is the patients 1st injection Jonathan Petty DPM [1] Allergies Allergen Reactions Azithromycin Unknown [...] TIA (transient ischemic attack) Vertigo Visual impairment 1960 [3] Current Outpatient Medications: allopurinol (Zyloprim) 300 [...] Daily, Disp: , Rfl: documented in this encounterExcelsior Springs Medical CenterGoxtqofvuw55-54-2693 History of Present illness Narrative* GEMA Mccartney - 03/29/2025 9:30 AM EDTAssociated [...] neurovascular intact s/p injection. . ( Codes 32037) Procedure, treatment alternatives, risks and benefits explained, [...] signs or symptoms of infection. Wearing a inspector health care facilities after a recent diagnosis of heart failure andhas been on medication to hopefully correct this. Treatment plan: Intra-articular injection requested again today for symptoms. Less steroid would bebetter for the intermediate frame tender, but shoulder could be injected every 4 [...] requiring urgent evaluation. 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 documented in this encounterExcelsior Springs Medical CenterAwcchefdgr21-75-2701 NoteCardiovascular Medicine [facility] SUBJECTIVE Chief Complaint Patient presents with Follow-up Patient is here today for a follow up appointment [facility] for chest pressure and fluid around his heart. NSVT Frequent PVCs Hyperlipidemia Hypertension Bradycardia Atrial tachycardia CKDA Dizziness Dizziness/lightheaded with standing Yusef Car is a 75 y.o. male here for follow-up after his recent admission to [facility]. His Zoe accompanied him today. PMHx: CAD, [...] prior to his admission but just figured he was run down/had a cold. PT/spouse also note [...] left adrenal mass, atrial tachycardia presents to [facility] as a direct admission with fluid overload [...] therapeutic Lovenox. He was initially admitted to [facility] but it was decided to transfer [...] Wt 105 kg (231 lb) BMI 33.15 kg/m??? Smoking Status Former BSA 2.28 m??? Medications: Current Medications[6] Physical Exam Labs: Lab [...] 03/21/2025 460 (H) aPTT 03/21/2025 32.4 Ventricular Ra (more content not included)...[facility] 03-22-2025 NoteHospital Medicine Discharge Summary Admission Date: 03/21/2025 1:32 [...] left adrenal mass, atrial tachycardia presents to [facility] as a direct admission with fluid overload [...] therapeutic Lovenox. He was initially admitted to [facility] but it was decided to transfer [...] - Continue outpatient follow-up. Dear MD Alonzo, Yusef is advised to follow up with you within 1-2 weeks. Items to follow up in ambulatory setting: None Follow-up with: Cardiology Scheduled appointments: Future Appointments Date Time Provider Department Center 03/28/2025 1:20 PM Rosendo Sanchez CNP [facility] Your medication list START taking these medications [...] Your Medications These medications were sent to [facility]/pharmacy #[id number] [place] [address] aspirin 81 mg chewable tablet spironolactone 25 mg tablet Yusef is allergic to azithromycin, ciprofloxacin, and lisinopril. [...] activity orders Objective Blood pressure 138/54, pulse (more content not included)...[facility]10-08-2025 Note Attestation signed by Zeus Schroeder MD at 03/24/2025 9:56 AM By using the attestations below, the signing clinician agrees that I have read and verify that the documentation has been personally reviewed by me and [...] GDMT for HFrEF Close outpatient follow-up with [place] cardiology for HFrEF management Repeat echo in 1 to 3 months Check labs in 1 week Stable for discharge this time Cardiology Progress Note Subjective 03/22/2025: The patient was seen and examined at bedside this morning. He was afebrile and hemodynamically stable, satting well on room air. Creatinine 1.34 (1.23), HDL 21, LDL 42, labs otherwise unremarkable. No acute events reported overnight. Patient denies chest pain or dyspnea. Subjective: Yusef Car is a 74 y.o. male with a past medical history of atrial tachycardia on bisoprolol, and orthostatic hypotension who presented to outside hospital [...] normal pressures. Patient was transferred over to [facility] for possible cardiac catheterization. On presentation to the hospital, troponins have been flat at 43. EKG done showed left bundle branch block with premature ventricular complexes. Echocardiogram was ordered. Objective Current Medications[1] Objective: Patient Vitals for the past 24 hrs: BP Temp Temp src Pulse Resp SpO2 Weight 03/22/25 0400 126/61 -- -- -- -- 90 % -- 03/22/25 0138 -- -- -- -- -- -- 103 kg (226 lb 6.4 oz) 03/22/25 0000 120/51 36.4 ???C (97.5 ???F) 70 -- (!) 89 % -- 03/21/251999 127/75 36.2 ???C (97.2 ???F) 72 -- 95 % -- 03/21/25 1900 117/63 36.1 ???C (97 ???F) 75 17 95 % -- 03/21/25 1800 134/60 36.1 ???C (96.9 ???F) 77 17 97 % -- 03/21/25 1700 156/62 36.4 ???C (97.5 ???F) 75 17 96 % -- 03/21/25 1601 122/59 36.1 ???C (96.9 ???F) 75 17 96 % -- 03/21/25 1500 (!) 106/47 -- -- 66 -- 93 % -- 03/21/25 1430 115/66 36.1 ???C (97 ???F) Temporal 68 17 95 % -- 03/21/25 1400 125/71 36 ???C (96.8 ???F) Temporal 71 16 96 % -- 03/21/25 1345 109/70 35.8 ???C (96.4 ???F) Temporal 82 16 95 % -- 03/21/25 1330 148/66 35.8 ???C (96.4 ???F) Temporal 69 16 96 % -- 03/21/25 1315 136/69 36 ???C (96.8 ???F) Temporal 70 16 98 % -- 03/21/25 1300 129/73 35.9 ???C (96.6 ???F) Temporal 72 16 96 % -- 03/21/25 1245 134/74 35.8 ???C (96.4 ???F) Temporal 71 17 94 % -- 03/21/25 1233 131/64 35.7 ???C (96.3 ???F) Temporal 72 20 95 % -- 03/21/25 [...] Value Ventricular Rate 74 Atrial Rate 74 SD Interval 192 QRS DURATION 160 QT Interval 498 QTC CALCULATION(BAZETT) 552 P [place] 52 R-[place] 133 T Wave [place] -12 Impression Sinus rhythm with occasional Premature ventricular complexes Left bundle branch block Abnormal ECG When compared with ECG of 27-JUL-2023 07:48, Premature ventricular complexes are now Present Left bundle branch block is now Present No results found for: CKTOTAL , CKMB , CKMBINDEX , TROPONINI Complete Echo (more content not included)...[facility] 03-21-2025 NotePatient: Yusef Car Procedure Information Date/Time: 03/21/25 1800 Procedures: Coronary angiography Right heart cath Location: [facility] / [facility] (Cath) Providers: Jai Subramanian [...] discussed with attending and fellow. Additional Equipment RequestsUnMemorial Health System [facility]10-07-2025 Note Case was discussed with the PEYTON on 03/21/2025. I agree with the history, physical, assessment, and plan of care. I discussed the findings and therapeutic plan. I agree with the documentation, except for any updates below. Pelon Keller MDUnMemorial Health System [facility]10-07-2025 Note-Troponin 85->112->43 -Concern for ACS -Will initiate IV heparin infusion -Patient was given Plavix as well as therapeutic Lovenox at outside hospital -N.p.o. for possible cardiac cath -Most recent cardiac cath completed on 07/27/2023 showing mild CAD -Cardiology consultUnMemorial Health System [facility]10-07-2025 Note- Continue losartanUnMemorial Health System [facility]10-07-2025 Note-Continue outpatient follow-up with urologyUnMemorial Health System [facility]10-07-2025 Note- Continue beta-blockerUnMemorial Health System [facility]10-07-2025 Note- Stable continue monitoringUnMemorial Health System [facility]10-07-2025 Note- Continue rosuvastatinUnMemorial Health System [facility]10-07-2025 Note- ISS, ACHS [facility]10-07-2025 Note- BNP elevated at 2610 at outside hospital -He was given 40 mg of IV Lasix with improvement in shortness of breath -Echocardiogram is pending -Strict intake and outputUnMemorial Health System [facility]10-07-2025 Note- Stable, at baselineUnMemorial Health System [facility]10-07-2025 NoteHospital Medicine History and Physical 03/21/2025 3:05 AM THE HOSPITALIST TEAM PREFERS TO USE [employer] FOR NON-URGENT COMMUNICATION 7AM-7PM. IF I DO NOT RESPOND WITHIN 20 MINUTES OR URGENT MATTERS, PLEASE CALL THROUGH THE PERSONAL FITNESS MANAGER. FROM 7PM-7AM, PLEASE PAGE [phone](COVR). Chief Complaint Direct admit from [place] for fluid overload and elevated trop History of Present Illness Yusef Car is an 74 y.o. male who came from home with past medical history CKD 3a, DM2, hypertension, hyperlipidemia, neuroendocrine carcinoma, left adrenal mass, atrial tachycardia presents to [facility] as a direct admission with fluid overload [...] therapeutic Lovenox. He was initially admitted to [facility] but it was decided to transfer for possible cardiac cath. Upon arrival, repeat labs were completed showing troponin 43, BNP 460, BUN 31, creatinine 1.33. Review of System and Physical Exam Temp: [36.1 ???C (97 ???F)] 36.1 ???C (97 ???F) Heart Rate: [73] 73 Resp: [20] 20 [...] output CKD stage 3a, GFR 45-59 ml/min ([facility]) - Stable, at baseline Type 2 diabetes mellitus without complication, without long-term current use of insulin ([facility]) - ISS, ACHS Mixed hyperlipidemia - Continue rosuvastatin 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CMS/HCC) - Stable continue monitoring Primary hypertension - [...] this hospital stay by a member of [facility]. Past Medical History Medical History[1] Past Surgical History Surgical History[2] Social History Social History (more content not included)...[facility]09-29-2025 Evaluation note* Diagnosis Onset Date Resolution Status Admit Date Allergic rhinitis acuteSept2024 8:52amBradycardiaacuteSept2024 8:52amCKD stage 3a, GFR 45-59 ml/minacuteSept2024 8:52amDiabetic polyneuropathy associated with type 2 diabetes mellitusacuteSept2024 8:52amGastroesophageal reflux diseaseacuteSept2024 8:52am HypertensionacuteSept2024 8:52amLeft ankle swellingacuteSept2024 8:52amMixed hyperlipidemiaacuteSept2024 8:52amObesity (BMI 30-39.9)acuteSept2024 8:52amSlow transit constipationacute March 13, 2025 8:52amType 2 diabetes mellitus, without long-term current use of insulinacuteSept2024 8:52amAdrenal adenomaacuteOctober 2024 10:51amChronic systolic heart failureacuteOctober 2024 10:51amCKD stage 3a, GFR 45-59 ml/minacuteOctober 2024 10:51amHypertensionacute March 29, 2025 10:51amMixed hyperlipidemiaacuteOctober 2024 10:51am Obesity (BMI 30-39.9)acuteOctober 2024 10:51amType 2 diabetes mellitus, without long-term current use of insulinacuteOctober 2024 10:51am [facility] Work Phone: [phone]) 254-860507-28-2025 History of Present illness Narrative* Tomeka Rosado NP - 01/09/2025 9:08 AM [...] from the original note were not included. uYsef Car is a 74 y.o. male presents [...] no, recent ER visit Specialist: eye doctor, manager strategic alliances, urology, GI, oncololgy HCPOA/Living Will: POA Concerns: [...] the past Stage 3a chronic kidney disease ([facility]-HCC) Noted on prior labs Control blood pressure [...] at last office visit, was sent to [facility] ER via squad Bisoprolol dose was [...] EDTAssociated Problem(s): Stage 3a chronic kidney disease ([facility]-HCC) Noted on prior labs Control blood pressure as well as diabetes Avoid nephrotoxic drugs if possible * Tomeka Rosado NP - 01/09/2025 6:13 AM EDTAssociated Problem(s): Bradycardia Noted at last office visit, was sent to [facility] ER via squad Bisoprolol dose was lowered from 10mg daily to 5mg daily * Tomeka Rosado NP - 01/09/2025 6:12 AM EDTAssociated Problem(s): NSVT (nonsustained ventricular tachycardia) ([facility]) Noted from cardiology notes in the past * Tomeka Rosado NP - 01/09/2025 6:12 AM EDTAssociated Problem(s): LLQ pain Checked labs and xray at last appt Treated for suspected diverticulitis, sxs resolved documented in this encounterExcelsior Springs Medical CenterDzxhtznkzc71-29-2079 Instructions* Patient Instructions* Tomeka Rosado NP - 01/09/2025 8:40 AM EDT Follow up in office for 2 weeks Get xray documented in this encounterExcelsior Springs Medical CenterLkysltaneh84-18-6521 History of Present illness Narrative* Tomeka Rosado NP - 12/13/2024 3:10 PM EDTAssociated Problem(s): Bradycardia No current sxs , at HR that he has, we discussed that despite asymptomatic we will send to [id number] Squad comes to peanut picker pt, report given Sent with last office note, for med list etc I have reassessed the pt: HR 34, BP 120/72 Skin is pink, warm, and dry * Tomeka Rosado NP - 12/13/2024 3:07 PM EDTAssociated Problem(s): Primary hypertension Please check blood pressure daily and record DASH diet Limit caffeine Take medication as directed Contact office if chest pain, pressure, dizziness, shortness of breath, swelling legs Recommend slow position changes Current meds: bisoprolol, amlodipine * Tomeka Rosado NP - 12/13/2024 2:00 PM EDT Images from the original note were not included. Yusef Car is a 74 y.o. male presents with chief complaint of Diabetes HPI: Here for recheck of diverticulitis: no pain, no fever, no chills, no bright red stools, some darkercolor, no constipation Does feel fatigue today, no [...] TIA (transient ischemic attack) Vertigo Visual impairment 1960 Past Surgical History: Procedure Laterality Date APPENDECTOMY [...] that despite asymptomatic we will send to [id number] Squad comes to peanut picker pt, report given Sent with last office note, for med list etc I have reassessed the pt: HR 34, BP 120/72 Skin is pink, warm, and dry * Tomeka Rosado NP - 12/13/2024 7:20 AM EDTAssociated Problem(s): Diverticulitis Treated with atb, sxs resolved * Tomeka Rosado NP - 12/13/2024 7:19 [...] suspected diverticulitis, sxs resolved documented in this encounterExcelsior Springs Medical CenterYlpthbljgf46-34-1954 History of Present illness Narrative* GEMA Mccartney - 11/30/2024 9:30 AM EDTAssociated [...] neurovascular intact s/p injection. . ( Codes 29322) Procedure, treatment alternatives, risks and benefits explained, [...] requiring urgent evaluation. 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 documented in this encounterExcelsior Springs Medical CenterKkfmwjqnkw03-43-0442 History of Present illness Narrative* Tomeka Rosado NP - 11/28/2024 2:31 PM EDTAssociated Problem(s): Diverticulosis of sigmoid colon Augmentin BID for 10 days Check labs and xray Fu in 2 weeks Advised of s/s of need for ER * Tomeka Rosado NP - 11/28/2024 2:31 PM EDTAssociated Problem(s): LLQ pain Abd xray Labs: cbc, sed rate, chem 14, UA w micro and urine culture Suspect diverticulitis * RUBY CAMPBELL - 11/28/2024 2:00 PM EDT Last night fever 100.4 Pt had the [...] a 8-9 Light breakfast. No alcohol consumption. * Tomeka Rosado NP - 11/28/2024 2:00 PM EDT Images from the original note [...] pain is located in the LLQ. The painis at a severity of 8/10. The pain [...] TIA (transient ischemic attack) Vertigo Visual impairment 1961 Past Surgical History: Procedure Laterality Date APPENDECTOMY age 18 BUNIONECTOMY 2004 CHOLECYSTECTOMY 05/2021 COLONOSCOPY 10/14/2010 -x2 polyps-one tubular adenoma,one hyperplastic/Dr Alvarez COLONOSCOPY 05/14/2015 moderate sigmoid diverticulosis,Dr Alvarez CYSTOSCOPY dilitation - 2000? HEMANGIOMA EXCISION 2011 tongue ROTATOR CUFF REPAIR [...] (Augmentin) 875-125 MG tablet documented in this [facility]06-16-2025 Instructions* Patient Instructions* Tomeka Rosado NP - 11/28/2024 2:00 PM EDT Get labs completed and xray Also if pain worsens go to ER documented in this encounterExcelsior Springs Medical [id number] NoteUT Electrophysiology Consult Note Reason for visit: PAC/PVC [...] kidney disease) stage 3, GFR 30-59 ml/min ([facility]) Diabetes 1.5, managed as t (more content not included)...[facility]04-[facility] History of Present illness Narrative* Tomeka Rosado NP - 10/10/2024 9:17 AM EDTAssociated Problem(s): Diabetic polyneuropathy associated with type 2 diabetes mellitus ([facility]) Freq foot checks proper fitting shoes, socks * RUBY CAMPBELL - 10/10/2024 8:40 AM EDT Last office visit: 07/13/24 Hypertension: has wrist [...] a heart monitor done in June Sees manager strategic alliances ferdinand [place] al[place] in [place] * Tomeka Rosado NP - 10/10/2024 8:40 AM EDT Images from the original [...] visual change. There are no hypoglycemic complications. Symptomsare stable. Diabetic complications include peripheral neuropathy. Risk factors for coronary artery disease include diabetes mellitus, dyslipidemia, hypertension, obesity and sedentary lifestyle. Current diabetic treatment includes oral agent (dual therapy). An GODWIN inhibitor/angiotensin II receptor janet is not being taken. He does not see a helicopter technician.Eye exam is current. Hypertension This is a chronic problem. The current episode started more than 1 year ago. The problem is unchanged. The problem is controlled. Pertinent negatives include no blurred vision, chest pain, malaise/fatigue, palpitations, peripheral edema or shortness of breath. Headaches: occ.There are no associatedagents to hypertension. Risk factors for coronary artery [...] TIA (transient ischemic attack) Vertigo Visual impairment 1960 Past Surgical History: Procedure Laterality Date APPENDECTOMY [...] polyneuropathy associated with type 2 diabetes mellitus ([facility]) Freq foot checks proper fitting shoes, socks Primary hypertension ([facility]) Please check blood pressure daily and record DASH diet Limit caffeine Take medication as directed Contact office if chest pain, pressure, dizziness, shortness of breath, swelling legs Recommend slow position changes Current meds: bisoprolol, amlodipine prn Mixed hyperlipidemia ([facility]) On statin therapy Check labs yearly and prn dose changes Relevant Orders Uric acid RESOLVED: Morbid obesity ([facility]) Benign prostatic hyperplasia with lower urinary tract symptoms Currently taking tamsulosin Type 2 diabetes mellitus with kidney complication, without long-term current use of insulin ([facility]) - Primary Check blood sugars daily, notify [...] 30-39.9) Primary malignant neuroendocrine neoplasm of duodenum ([facility]) Follows with oncology Gout Current meds: allopurinol [...] for prostate cancer Relevant Orders Hemoglobin A1c * Tomeka Rosado NP - 10/10/2024 6:19 AM EDTAssociated Problem(s): Class 1 obesity with serious comorbidity in adult Discussed with patient their BMI (actual, verses recommended). We have also discussed lifestyle modifications: attempts to perform physical activity as chronic conditions allow, also to monitor dietary intake: increasing protein/fruits/veggies and lowering carb intake (unless contraindicated). Limit sodas, juices, and sugary drinks. * Tomeka Rosado NP - 10/10/2024 6:18 AM EDTAssociated Problem(s): Mixed hyperlipidemia (CMS/HCC) On statin therapy Check labs yearly and prn dose changes * Tomeka Rosado NP - 10/10/2024 6:18 AM EDTAssociated Problem(s): Gout Current meds: allopurinol Check labs yearly and prn dose changes or changes in sxs * Tmoeka Rosado NP - 10/10/2024 6:17 AM EDTAssociated Problem(s): Type 2 diabetes mellitus with kidney complication, without long-term currentuse of insulin (CMS/HCC) Check blood sugars daily, notify if <70 [...] meds: jardiance, gimepiride, statin A1c: will order * Tomeka Rosado NP - 10/10/2024 6:16 AM EDTAssociated Problem(s): Benign prostatic hyperplasia with lower urinary tract symptoms Currently taking tamsulosin Follows with urology * Tomeka Rosado NP - 10/10/2024 6:16 AM EDTAssociated Problem(s): Primary malignant neuroendocrine neoplasm of duodenum (CMS/HCC) Follows with oncology * Tomeka Rosado NP - 10/10/2024 6:15 AM EDTAssociated Problem(s): Gastroesophageal reflux disease Recommendations: freq small meals, nothing to eat or drink at least 2 hours prior to bed, limit caffeine, alcohol, as well as spicy foods Meds to limit or avoid if possible: NSAIDS Elevate HOB if possible Current med: omeprazole * Tomeka Rosado NP - 10/10/2024 6:15 AM EDTAssociated Problem(s): Primary hypertension (CMS/HCC) Please check blood pressure daily and record DASH diet Limit caffeine Take medication as directed Contact office if chest pain, pressure, dizziness, shortness of breath, swelling legs Recommend slow position changes Current meds: bisoprolol, amlodipine prn documented in this encounterExcelsior Springs Medical [id number] Instructions* Patient Instructions* Tomeka Rosado NP - 10/10/2024 8:40 AM EDT Labs: fasting documented in this encounterExcelsior Springs Medical [id number] History of Present illness Narrative* GEMA Mccartney - 08/12/2024 9:00 AM ESTAssociated Order(s): L Inj/Asp: L glenohumeral Post-Procedure Diagnose(s): [...] neurovascular intact s/p injection. . ( Codes 43996-UR) Procedure, treatment alternatives, risks and benefits explained, [...] reports 1 to 2-month relief with prior subacromialinjection. Surgical and nonsurgical treatment options were discussed, [...] for requiring urgent evaluation. documented in this encounterExcelsior Springs Medical [id number] History of Present illness Narrative* Miriam Gatica NP - 07/13/2024 8:56 AM ESTAssociated Problem(s): Stage 3a chronic kidney disease (HCC) ([facility]/HCC) Stable. Follows with Nephrology. Most recent Creatinine 1.22,/ eGFR 58. Avoid Nephrotoxic Agents. Monitor closely. * Miriam Gatica NP - 07/13/2024 8:55 AM ESTAssociated Problem(s): Mixed hyperlipidemia (CMS/HCC) Currently taking Rosuvastatin 20mg Cardiology Manages Denies any myalgias. Most recent Lipid Panel done 03/2024- WNL. Continue current regimen. * Miriam Gatica NP - 07/13/2024 8:53 AM ESTAssociated Problem(s): Type 2 diabetes mellitus with kidney complication, without long-term currentuse of insulin ([facility]) Currently taking glimeperide 4mg Jardiance 25mg Most [...] persistent hypoglycemia/hyperglycemia on home glucose monitoring noted. * Miriam Gatica NP - 07/13/2024 8:49 AM ESTAssociated Problem(s): Primary hypertension ([facility]/HCC) Currently taking bisoprolol 5mg BID Losartan 100mg Furosemide 20mg Cardiology manages very closely. Checks BP at home; Averages are 130/85. Denies orthostatic changes, dizziness, cough, shortness of breath, swelling in extremities. Continue current regime as directed by Cardiology Given BP log, advised pt to record BP and bring log back with them to next visit. * Miriam Gatica NP - 07/13/2024 8:30 AM EST Images from the original note were not included. Subjective Patient ID: Yusef Car is a 74 y.o. male who presents for Diabetes. HPI Specialists: Cardiologuy- [facility] GI- Dr. Magaña Urology- Dr. Justice HTN: [...] R ALBUMIN GLOBULIN RATIO 0.9 Resulting Agency [facility] CKDIII: Stable. Most recent Creatinine 1.22,/ [...] Neurological: Negative for dizziness, tremors, syncope, weakness, light- headedness and headaches. Psychiatric/Behavioral: Negative for decreased concentration and suicidal ideas. The patient is notnervous/anxious. Hematological: Does not bruise/bleed easily. Endocrine: Negative [...] List Items Addressed This Visit Primary hypertension ([facility]) - Primary Currently taking bisoprolol 5mg BID Losartan 100mg Furosemide 20mg Cardiology manages very closely. Checks BP at home; Averages are 130/85. Denies orthostatic changes, dizziness, cough, shortness of breath, swelling in extremities. Continue current regime as directed by Cardiology Given BP log, advised pt to record BP and bring log back with them to next visit. Mixed hyperlipidemia ([facility]) Currently taking Rosuvastatin 20mg Cardiology Manages Denies any myalgias. Most recent Lipid Panel done 03/2024- WNL. Continue current regimen. Type 2 diabetes mellitus with kidney complication, without long-term current use of insulin ([facility]) Currently taking glimeperide 4mg Jardiance 25mg Most [...] Nephrotoxic Agents. Monitor closely. documented in this [facility]01-29-2025 Instructions* Patient Instructions* Miriam Gatica NP - 07/13/2024 8:30 AM [...] carbohydrates, and simple sugars. documented in this encounterExcelsior Springs Medical [id number] Attending History and physical note* Jeremiah Magaña MD - 06/30/2024 10:30 AM EST H&P reviewed. The patient was examined and there are no changes to the H&P. Source Note - Neftali Knowles MD - 06/21/2024 9:40 AM EST Images from the original note were not included. Patient ID: Yusef Cra is a 74 y.o. male. Referring Physician: No referring provider defined for this encounter. Primary Care Provider: Shaikh Jamie MD Chief Complaint: Duodenal neuroendocrine tumor Interval History: 73 years old gentleman from [place], [place] who has been referred to me from [facility]. Thepatient complained of acid reflux for [...] 0841 No results found for: TSH , A7TBFKW , W2MOZSP , THYROIDPAB Radiology Result: I have reviewed [...] Juanjose Walters 05/27/2023 11:47 AM Dictation workstation: [id number] === 01/11/21 === - Impression - 1. [...] Juanjose Walters 05/27/2023 11:47 AM Dictation workstation: [id number] Pathology Results: I have reviewed the full pathology report recorded in the EMR. The pertinent portions indicating diagnosis are listed here in the note. for details please refer to the full report recorded in the EMR. Assessment and Plan: Localized duodenal neuroendocrine tumor (G1) 73 years old gentleman from [place], [place] who has been referred to me from [facility]. Thepatient complained of acid reflux for [...] patient has been recommended to go to [place] for surgical consultation. I discussed with the [...] number listed below. Thank you for choosing [facility]. We appreciate your visit. Neftali Knowles M.D. Micro Computer Data Processor and Director of the Neuroendocrine Tumor Program Gastrointestinal Medical Oncology Department of Hematology and Oncology [facility], [place] [address] Phone (Office): [phone] Email: [email or web address] Learn more about [facility] Comprehensive Neuroendocrine Tumor Program: Click Here Learn more about [place] [employer]: [email or web address] [facility] Work Phone: 1(287) 750-436201-16-2025 History and physical note* Jeremiah Magaña MD - 06/30/2024 10:30 AM EST H&P reviewed. The patient was examined and [...] Interval History: 73 years old gentleman from [place], [place] who has been referred to me from [facility]. Thepatient complained of acid reflux for [...] 0841 No results found for: TSH , Y5QDZSK , O5XKGVB , THYROIDPAB Radiology Result: I have reviewed [...] Juanjose Walters 05/27/2023 11:47 AM Dictation workstation: [id number] === 01/11/21 === - Impression - 1. [...] Juanjose Walters 05/27/2023 11:47 AM Dictation workstation: [id number] Pathology Results: I have reviewed the full pathology report recorded in the EMR. The pertinent portions indicating diagnosis are listed here in the note. for details please refer to the full report recorded in the EMR. Assessment and Plan: Localized duodenal neuroendocrine tumor (G1) 73 years old gentleman from [place], [place] who has been referred to me from [facility]. Thepatient complained of acid reflux for [...] patient has been recommended to go to [place] for surgical consultation. I discussed with the [...] number listed below. Thank you for choosing [facility]. We appreciate your visit. Neftali Knowles M.D. Micro Computer Data Processor and Director of the Neuroendocrine Tumor Program Gastrointestinal Medical Oncology Department of Hematology and Oncology [facility], [place] [address] Phone (Office): [phone] Email: [email or web address] Learn more about [facility] Comprehensive Neuroendocrine Tumor Program: Click Here Learn more about [place] [employer]: [email or web address] documented in this encounterJ.W. [facility] Work Phone: 1([phone]) 499-181101-16-2025 Hospital Discharge instructions* Discharge Instructions* Jeremiah Magaña MD - 06/30/2024 10:08 AM [...] moderate abdominal distention, gas, or belching after yourprocedure, if any of these symptoms occur following discharge from the GI Lab or within one week ofhaving your procedure, call the [facility] to be advised whether a visit to your nearest Urgent Care or Emergency Department is indicated. Take this paper with you if you go. - If you develop an allergic reaction to the medications that were given during your procedure suchas difficulty breathing, rash, hives, severe nausea, vomiting [...] inflamed, or looks infected. documented in this encounterJ.W. [facility] Work Phone: 1(695) 335-336412-17-2024 NoteUT Electrophysiology Consult Note Reason for visit: PAC/PVC [...] kidney disease) stage 3, GFR 30-59 ml/min ([facility]) Diabetes 1.5, managed as type 2 ([facility]/HCC) HTN (hypertension) Hyperlipidemia NSVT (nonsustained ventricular tachycardia) ([facility]/HCC) Primary malignant neoplasm of duodenum (CMS/HCC) PSH: Past Surgical History: Procedure Laterality Date CARDIAC CATHETERIZATION 07/27/2023 SH: Social Determinants of Health Tobacco Use: Medium Risk (04/13/2024) [facility] WatchFrogEx[facility] Patient History Smoking Tobacco Use: Former Smokeless Tobacco Use: Never Passive Exposure: Never Alcohol Use: Not At Risk (06/28/2023) Received from [facility] Frequency of Alcohol Consumption: Monthly or less Average Number of Drinks: 1 or 2 Frequency of Binge Drinking: Monthly [employer] (more content not included)...[facility] History of Present illness Narrative* GEMA Mccartney - 04/13/2024 9:00 AM EDTAssociated Order(s): L Inj/Asp: L subacromial bursa Post-Procedure [...] DENIES PAIN AT REST- OCCASIONALLY WAKES HS- GOODROM- DOES HEP- SOME WEAKNESS- +TYLENOL/ALEVE PRN - [...] injection Left Shoulder SA space ( code 11528 ) Procedure, treatment alternatives, risks and benefits [...] to consider Reverse total shoulder.. will recheck in4 months and pt may call sooner best [...] for requiring urgent evaluation. documented in this encounterExcelsior Springs Medical [id number] History of Present illness Narrative* Miriam Gatica NP - 04/12/2024 10:57 AM EDTAssociated Problem(s): Type 2 diabetes mellitus with kidney complication, without long- term currentuse of insulin ([facility]) Currently taking glimeperide 4mg Jardiance 25mg Most [...] persistent hypoglycemia/hyperglycemia on home glucose monitoring noted. * Miriam Gatica NP - 04/12/2024 10:55 AM EDTAssociated Problem(s): Obesity (BMI 30-39.9) Discussed with patient [...] well as surgical options for weight loss. * Miriam Gatica NP - 04/12/2024 10:55 AM EDTAssociated Problem(s): Left rotator cuff tear arthropathy [address] [place] [address] ortho told him he needed revision. Declined. Was given cortisoioine injection. Would like to have agin. Needs to establish with new orttho;. Referral sent to ortho * Miriam Gatica NP - 04/12/2024 9:02 AM EDTAssociated Problem(s): Stage 3a chronic kidney disease (HCC) (CMS/HCC) Stable. Most recent Creatinine 1.18,/ eGFR 65. Avoid Nephrotoxic Agents. Monitor closely. * Miriam Gatica NP - 04/12/2024 9:01 AM EDTAssociated Problem(s): Mixed hyperlipidemia (CMS/HCC) Currently taking Rosuvastatin 20mg Cardiology Manages Denies any myalgias. Check Lipid Panel Continue current regimen. * Miriam Gatica NP - 04/12/2024 9:01 AM EDTAssociated Problem(s): Primary hypertension (CMS/HCC) Currently taking bisoprolol 10mg BID Losartan 100mg Checks BP at home; Averages are 130/85. Denies orthostatic changes, dizziness, cough, shortness of breath, swelling in extremities. Continue current regimen. Given BP log, advised pt to record BP and bring log back with them to next visit., * Miriam Gatica NP - 04/12/2024 8:30 AM EDT Images from the original note were not included. Subjective Patient ID: Yusef Car is a 74 y.o. male who presents for Diabetes and Hypertension. HPI Specialists: Cardiologuy- [facility] GI- Dr. Magaña Urology- Dr. Justice HTN: [...] Neurological: Negative for dizziness, tremors, syncope, weakness, light- headedness and headaches. Psychiatric/Behavioral: Negative for decreased concentration and suicidal ideas. The patient is notnervous/anxious. Hematological: Does not bruise/bleed easily. Endocrine: Negative [...] List Items Addressed This Visit Primary hypertension ([facility]) Currently taking bisoprolol 10mg BID Losartan 100mg [...] metabolic panel CBC and differential Mixed hyperlipidemia ([facility]) - Primary Currently taking Rosuvastatin 20mg Cardiology Manages Denies any myalgias. Check Lipid Panel Continue current regimen. Relevant Medications rosuvastatin (Crestor) 20 MG tablet Other Relevant Orders Lipid panel Diabetes mellitus type 2 in obese ([facility]) Type 2 diabetes mellitus with kidney complication, without long-term current use of insulin ([facility]) Currently taking glimeperide 4mg Jardiance 25mg Most [...] Surgery Stage 3a chronic kidney disease (HCC) ([facility]/HCC) Stable. Most recent Creatinine 1.18,/ eGFR 65. Avoid Nephrotoxic Agents. Monitor closely. Relevant Orders Microalbumin / creatinine urine ratio Comprehensive metabolic panel CBC and differential Arthritis Relevant Orders Ambulatory referral to Orthopaedic Surgery documented in this [facility]10-29-2024 Instructions* Patient Instructions* Miriam Gatica NP - 04/12/2024 8:30 AM [...] carbohydrates, and simple sugars. documented in this [facility]07-16-2024 Hospital Discharge instructions* Discharge Instructions* Jeremiah Magaña MD - 12/29/2023 1:37 PM [...] moderate abdominal distention, gas, or belching after yourprocedure, if any of these symptoms occur following discharge from the GI Lab or within one week ofhaving your procedure, call the [facility] to be advised whether a visit to your nearest Urgent Care or Emergency Department is indicated. Take this paper with you if you go. - If you develop an allergic reaction to the medications that were given during your procedure suchas difficulty breathing, rash, hives, severe nausea, vomiting [...] inflamed, or looks infected. documented in this [facility] Work Phone: [phone]) 898-696807-16-2024 Attending History and physical note* Jeremiah Magaña MD - 12/29/2023 1:30 PM EDT H&P reviewed. The patient was examined [...] and was very uncomfortable. He states that thedid not find any cancer at that time. Patient was on Flomax when he was in his 40s but did not likeretrograde ejaculation therefore stopped the medication. Patient has noticed that over the last fewyears that his urinary stream has weakened and he also has nocturia at least 3 times at night. Patient also has postvoid dribbling. Patient has some intermittent urgency. He did not he urinates every2-3 hours during the day. He does have intermittent dysuria. He did have a dye load recently for heart catheterization. The symptoms are bothersome for him and he would like some intervention. He is not a sexually active as he used to be and would be willing to go back on Flomax. Patient denies anyunintentional weight loss or loss of appetite. He states that he does have his PSA checked and it is less than 1. He denies any recent gross hematuria. He denies any new or worsening hip back or pelvis pain. Patient does have a history of a duodenal neuroendocrine tumor and follows closely with hematology oncology at [facility]. Patient has had imaging of his abdomen pelvis and recent history as well as before. This imaging is not available for us to directly visualize but the reports are available. Patient had a renal ultrasound dated 07/17/2023: right kidney:No solid renal cortical masses or hydronephrosis is noted. There is a 9 x 7 mm simple cyst involving the upper pole ofthe right kidney. Left kidney:There is a 5 [...] is normal in size and shape. There florence known nodule, in the left adrenal measuring [...] cm) is also unchanged compared to study from09/18/2010 on the left patient has a partially [...] to confirm stability of left adrenal adenoma andcharacterize his renal cysts as they been increasing in size Continue Flomax Follow-up in 1 year with MRI abdomen and PVR [facility] Work Phone: [phone] 129-508407-16-2024 History and physical note* Jeremiah Magaña MD - 12/29/2023 1:30 PM EDT H&P reviewed. The patient was examined [...] and was very uncomfortable. He states that thedid not find any cancer at that time. Patient was on Flomax when he was in his 40s but did not likeretrograde ejaculation therefore stopped the medication. Patient has noticed that over the last fewyears that his urinary stream has weakened and he also has nocturia at least 3 times at night. Patient also has postvoid dribbling. Patient has some intermittent urgency. He did not he urinates every2-3 hours during the day. He does have intermittent dysuria. He did have a dye load recently for heart catheterization. The symptoms are bothersome for him and he would like some intervention. He is not a sexually active as he used to be and would be willing to go back on Flomax. Patient denies anyunintentional weight loss or loss of appetite. He states that he does have his PSA checked and it is less than 1. He denies any recent gross hematuria. He denies any new or worsening hip back or pelvis pain. Patient does have a history of a duodenal neuroendocrine tumor and follows closely with hematology oncology at [facility]. Patient has had imaging of his abdomen pelvis and recent history as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 with lower urinary tract symptoms, symptom details unspecified Obesity (BMI 30-39.9) Morbid obesity ([facility]-HCC) Morbid obesity Gout, unspecified cause, unspecified chronicity, unspecified site Mixed hyperlipidemia Class 1 obesity due to [...] Unspecified disorder of adrenal glands Mixed hyperlipidemia Primary hypertension Unspecified essential hypertension Left ankle swelling Effusion of ankle and foot joint Acute pain of left shoulder- Primary Left rotator cuff tear arthropathy Arthritis of left shoulder documented in this encounter [facility] HealthcareEvaluation note* Diagnosis Primary hypertension- [...] cystic kidney disease NSVT (nonsustained ventricular tachycardia) (HCC) Encounter to establish care with new doctor [...] disorder of adrenal glands Mixed hyperlipidemia- Primary Primary hypertension Unspecified essential hypertension Type 2 diabetes mellitus with stage 3a chronic kidney disease, without long-term current use of insulin (HCC) Gastroesophageal reflux disease without esophagitis Esophageal reflux Stage 3a chronic kidney disease ([facility]-HCC) Obesity (BMI 30-39.9) Diabetes mellitus type 2 in obese ([facility]/HCC) Left rotator cuff tear arthropathy Chronic pain of right knee Arthritis Unspecified arthropathy, site unspecified Primary hypertension- Primary Unspecified essential hypertension Type 2 diabetes mellitus with stage 3a chronic kidney disease, without long-term current use of insulin (HCC) Stage 3a chronic kidney disease (CMS-HCC) Mixed hyperlipidemia Type 2 diabetes mellitus with stage 3a chronic kidney disease, without long-term current use of insulin (HCC)- Primary Gastroesophageal reflux disease without esophagitis Esophageal reflux Primary malignant neuroendocrine neoplasm of duodenum (HCC) Benign prostatic hyperplasia with lower urinary tract symptoms, symptom details unspecified Obesity (BMI 30-39.9) Morbid obesity (CMS-HCC) Morbid obesity Gout, unspecified cause, unspecified chronicity, unspecified site Mixed hyperlipidemia Class 1 obesity due to [...] Unspecified disorder of adrenal glands Mixed hyperlipidemia Primary hypertension Unspecified essential hypertension Left ankle swelling Effusion of ankle and foot joint DJD (degenerative joint disease), ankle and foot, left- Primary Other specified disorders of synovium, left ankle and foot documented in this encounter [facility] N[facility]ative* HISTORY OF PRESENT ILLNESS: * Mr. CAR is a 71 year old male with a personal history of duodenal neuroendocrine cancer. He wasreferred [facility] by his provider, Ania Foster CNP. 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 CAR is of [place] and Faro[place] descent. There is no known Ashkenazi Latter Day ancestry. Consanguinity was denied. No genetic testing has been done in the family before. [facility] Work Phone: History of Present illness NarrativePlease see previous genetics note.[facility] Work Phone: History of Present illness Narrative* Neftali Knowles MD - 06/21/2024 9:40 AM EST Images from the original note were not included. Patient ID: Yusef Car is a 74 y.o. male. Referring Physician: No referring provider defined for this encounter. Primary Care Provider: Shaikh Jamie MD Chief Complaint: Duodenal neuroendocrine tumor Interval History: 73 years old gentleman from [place], [place] who has been referred to me from [facility]. Thepatient complained of acid reflux for [...] 0841 No results found for: TSH , X5MIICZ , M0DXUYY , THYROIDPAB Radiology Result: I have reviewed [...] Juanjose Walters 05/27/2023 11:47 AM Dictation workstation: [id number] === 01/11/21 === - Impression - 1. [...] Juanjose Walters 05/27/2023 11:47 AM Dictation workstation: [id number] Pathology Results: I have reviewed the full pathology report recorded in the EMR. The pertinent portions indicating diagnosis are listed here in the note. for details please refer to the full report recorded in the EMR. Assessment and Plan: Localized duodenal neuroendocrine tumor (G1) 73 years old gentleman from [place], [place] who has been referred to me from [facility]. Thepatient complained of acid reflux for [...] patient has been recommended to go to [place] for surgical consultation. I discussed with the [...] number listed below. Thank you for choosing [facility]. We appreciate your visit. Neftali Knowles M.D. Micro Computer Data Processor and Director of the Neuroendocrine Tumor Program Gastrointestinal Medical Oncology Department of Hematology and Oncology [facility], [place] [address] Phone (Office): [phone] Email: [email or web address] Learn more about [facility] Comprehensive Neuroendocrine Tumor Program: Click Here Learn more about [place] Neuroend[employer]: [email or web address] [facility] Work Phone: Hospital Discharge instructionsAmbulatory Orders* Referral to Podiatry Time Frame: 03/13/25, Location: [facility] Work Phone: Reason for visit Narrative* Endoscopy (Routine) - AuthorizedSpecialtyDiagnoses / ProceduresReferred By ContactReferred To ContactGastroenterology Diagnoses Primary malignant neuroendocrine neoplasm of duodenum (Multi) Procedures Esophagogastroduodenoscopy (EGD) SD ESOPHAGOGASTRODUODENOSCOPY TRANSORAL DIAGNOSTIC SD EGD TRANSORAL BIOPSY SINGLE/MULTIPLE Jeremiah Magaña MD [address] [address] Phone: tel: fax: Referral IDStatusReasonStart DateExpiration DateVisits RequestedVisits [id number]/8/20251/ [facility] Work Phone: Reason for visit Narrative* Imaging (Routine) - Closed SpecialtyDiagnoses / ProceduresReferred By ContactReferred To ContactRadiology Diagnoses Bilateral renal cysts Adrenal adenoma, left Procedures MRI ABDOMEN W WO CONTRAST Grace Justice PA-C [address] [facility] [address] [place] [address] Phone: tel: fax: Referral IDStatusReasonStphiladelphia DateExpiration DateVisits RequestedVisits [id number]/20257/ [facility] Work Phone: reason for visit Narrative* Endoscopy (Routine) - AuthorizedSpecialtyDiagnoses / ProceduresReferred By ContactReferred To ContactGastroenterology Diagnoses Primary malignant neuroendocrine neoplasm of duodenum (Multi) Procedures EGD SD ESOPHAGOGASTRODUODENOSCOPY TRANSORAL DIAGNOSTIC SD EGD TRANSORAL BIOPSY SINGLE/MULTIPLE Jeremiah Magaña MD [address] [address] Phone: tel: fax: Referral IDStatusReasonStart DateExpiration DateVisits RequestedVisits [id number]/18/20241/ [facility] Work Phone: Reason for visit Narrative* Endoscopy (Routine) - AuthorizedSpecialtyDiagnoses / ProceduresReferred By ContactReferred To ContactGastroenterology Diagnoses Primary malignant neuroendocrine neoplasm of duodenum (Multi) Procedures Endoscopic Ultrasound (Upper) [place] [address] [place] [address] Phone: tel: fax: Referral IDStatusReasonStart DateExpiration DateVisits RequestedVisits [id number]/15/20241/ [facility] Work Phone: Summary Purpose Family History No [...] Status:Active Advance Directives No Advanced Directives Records FoundHealthcare Agents on File NameRelationshipHealthcare Agent RelationshipCommunicationTina PrestonSpouse Health Care Agent* * * [email or web address] NameRelationshipHealthcare Agent RelationshipCommunicationTina PrestonSpouse Health Care Agent* * * [email or web address] NameRelationshipHealthcare Agent RelationshipCommunicationTina PrestonSpouse Health Care Agent* * * [email or web address] NameRelationshipHealthcare Agent RelationshipCommunicationTina PrestonSpouse Health Care Agent* * * [email or web address] NameRelationshipHealthcare Agent RelationshipCommunicationTina PrestonSpouse Health Care Agent* * * [email or web address] NameRelationshipHealthcare Agent RelationshipCommunicationTina PrestonSpouse Health Care Agent* * * [email or web address] NameRelationshipHealthcare Agent RelationshipCommunicationTina PrestonSpouse Health Care Agent* * * [email or web address] NameRelationshipHealthcare Agent RelationshipCommunicationTina PrestonSpouse Health Care Agent* * * [email or web address] NameRelationshipHealthcare Agent RelationshipCommunicationTina PrestonSpouse Health Care Agent* * * [email or web address] NameRelationshipHealthcare Agent RelationshipCommunicationTina PrestonSpouse Health Care Agent* * * [email or web address] NameRelationshipHealthcare Agent RelationshipCommunicationTina PrestonSpouse Health Care Agent* * * [email or web address] NameRelationshipHealthcare Agent RelationshipCommunicationTina PrestonSpouse Health Care Agent* * * [email or web address] NameRelationshipHealthcare Agent RelationshipCommunicationTina PrestonSpouse Health Care Agent* * * [email or web address] NameRelationshipHealthcare Agent RelationshipCommunicationTina PrestonSpouse Health Care Agent* * * [email or web address] NameRelationshipHealthcare Agent RelationshipCommunicationTina PrestonSpouse Health Care Agent* * * [email or web address] NameRelationshipHealthcare Agent RelationshipCommunicationTina PrestonSpouse Health Care Agent* * * [email or web address] NameRelationshipHealthcare Agent RelationshipCommunicationTina PrestonSpouse Health Care Agent* * * [email or web address] NameRelationshipHealthcare Agent RelationshipCommunicationTina PrestonSpouse Health Care Agent* * * [email or web address] NameRelationshipHealthcare Agent RelationshipCommunicationTina PrestonSpouse Health Care Agent* * * [email or web address] NameRelationshipHealthcare Agent RelationshipCommunicationTina PrestonSpouse Health Care Agent* * * [email or web address] NameRelationshipHealthcare Agent RelationshipCommunicationTina PrestonSpouse Health Care Agent* * * [email or web address] NameRelationshipHealthcare Agent RelationshipCommunicationTina PrestonSpouse Health Care Agent* * * [email or web address] NameRelationshipHealthcare Agent RelationshipCommunicationTina PrestonSpouse Health Care Agent* * * [email or web address] NameRelationshipHealthcare Agent RelationshipCommunicationTina PrestonSpouse Health Care Agent* * * [email or web address] NameRelationshipHealthcare Agent RelationshipCommunicationTina PrestonSpouse Health Care Agent* * * [email or web address] Advance Directive Response Recorded Date/ Time Advance Directives No November 29 1:34pm NameRelationshipHealthcare Agent RelationshipCommunicationTina PrestonSpouse Health Care Agent* * * [email or web address] NameRelationshipHealthcare Agent RelationshipCommunicationTina PrestonSpouse Health Care Agent* * * [email or web address] NameRelationshipHealthcare Agent RelationshipCommunicationTina PrestonSpouse Health Care Agent* * * [email or web address] NameRelationshipHealthcare Agent RelationshipCommunicationCarson [place] Health Care Agent* * * [email or web address] Chief Complaint 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 * Accompanied by . Patient seen for discussion of genetic test results. Reason for Referral SpecialtyDiagnoses / ProceduresReferred By ContactReferred To ContactRadiology Diagnoses Primary malignant neuroendocrine neoplasm of duodenum (CMS/HCC) Procedures CT chest abdomen pelvis w IV contrast Jazlyn Mcarthur, CREAM TESTER-CONSERVATION SCIENCE TEACHER [address] [place] [address] Referral IDStatusReasonStart DateExpiration DateVisits RequestedVisits [id number] Review Perform Procedure /[id number] / ProceduresReferred By ContactReferred To ContactGastroenterology Diagnoses Primary malignant neuroendocrine neoplasm of duodenum (CMS/HCC) Procedures EGD SD ESOPHAGOGASTRODUODENOSCOPY TRANSORAL DIAGNOSTIC SD EGD TRANSORAL BIOPSY SINGLE/MULTIPLE Jazlyn Mcarthur, CREAM TESTER-CONSERVATION SCIENCE TEACHER [address] [facility] [place] [address] Referral IDStatusReasonStart DateExpiration DateVisits RequestedVisits [id number] [id number] / ProceduresReferred By ContactReferred To ContactRadiology Diagnoses Exam for clinical trial Procedures US COMPARISON OF OUTSIDE FILMS Grace Justice PA-C [address] [facility] [address] [place] [address] Referral IDStatusReasonStart DateExpiration DateVisits RequestedVisits [id number] Review/[id number] / ProceduresReferred By ContactReferred To ContactGastroenterology Diagnoses Primary malignant neuroendocrine neoplasm of duodenum (Multi) Procedures Endoscopic Ultrasound (Upper) [place] [address] [place] [address] Referral IDStatusReasonStphiladelphia DateExpiration DateVisits RequestedVisits [id number] Review/[id number] / ProceduresReferred By ContactReferred To ContactRadiology Diagnoses Bilateral renal cysts Adrenal adenoma, left Procedures MRI ABDOMEN W WO CONTRAST Grace Justice PA-C [address] [facility] [address] [place] [address] Referral IDStatusReasonHoll[place] DateExpiration DateVisits RequestedVisits [id number]/[id number] / Procedures Referred By ContactReferred To ContactGastroenterology Diagnoses Primary malignant neuroendocrine neoplasm of duodenum (Multi) Procedures EGD SD ESOPHAGOGASTRODUODENOSCOPY TRANSORAL DIAGNOSTIC SD EGD TRANSORAL BIOPSY SINGLE/MULTIPLE Jeremiah Magaña MD [address] [facility] [address] [place] [address] Referral IDStatusReasonHoll[place] DateExpiration DateVisits RequestedVisits [id number] Review/[id number] / ProceduresReferred By ContactReferred To ContactRadiology Diagnoses Primary malignant neuroendocrine neoplasm of duodenum (Multi) Procedures CT chest [place] [address] [place] [address] Referral IDStatusReasonStphiladelphia DateExpiration DateVisits RequestedVisits [id number] Perform Procedure / Chief Complaint and Reason for Visit Chief Complaint Admit Date Amb Documentation February 14, 2025 1:26pm 2M March 13, 2025 8:52am Reason for Visit Admit Date CKD stage 3a, GFR 45-59 ml/min March 13, 2025 8:52am Diabetic polyneuropathy asso ciated with type 2 diabetes mellitus March 13, 2025 8:52am Gastroesophageal reflux disease [facility] 2024 8:52am Hypertension March 13, 2025 8:52am Left ankle swelling March 13, 2025 8:52am Mixed hyperlipidemia March 13 8:52am Obesity (BMI 30-39.9) March 13 8:52am Type 2 diabetes mellitus, wi thout long-term current use of insulin March 13, 2025 8:52am Chief Complaint Admit Date Amb Documentation February 14, 2025 1:26pm 2M March 13, 2025 8:52am [facility]heart [facility] March 29, 2025 1 0:51am Reason for Visit Admit Date Allergic rhinitis March 13, 2025 8:52am Bradycardia March 13, 2025 8:52am CKD stage 3a, GFR 45-59 ml/min March 13, 2025 8:52am Diabetic polyneuropathy asso ciated with type 2 diabetes mellitus March 13, 2025 8:52am Gastroesophageal reflux disease [facility] 2024 8:52am Hypertension March 13, 2025 8:52am [...] use of insulin March 29, 2025 10:51am Additional Source Comments (unrecognized sect ion and content) No Status Records FoundNo Status Records FoundNo Status Records FoundNo Status Records FoundNo Status Records FoundNo Status Records FoundNo Status Records FoundNo Status Records FoundNo Status Records FoundNo Status Records FoundNo Status Records FoundNo Status Records FoundNo Status Records Found INFORMATION SOURCE (unrecogn ized section and content) DATE CREATED AUTHOR 10/12/2018 [facility] DATE CREATED AUTHOR AUTHOR'S ORGANIZ ATION 06/13/2021 DATE CREATED AUTHOR AUTHOR'S ORGANIZ ATION 12/06/2021 [facility] DATE CREATED AUTHOR AUTHOR'S ORGANIZ ATION 05/14/2022 [facility] DATE CREATED AUTHOR AUTHOR'S ORGANIZ ATION 09/17/2022 [facility] DATE CREATED AUTHOR AUTHOR'S ORGANIZ ATION 07/31/2023 [facility] DATE CREATED AUTHOR AUTHOR'S ORGANIZ ATION 08/02/2023 [facility] DATE CREATED AUTHOR AUTHOR'S ORGANIZ ATION 06/27/2024 [facility] DATE CREATED AUTHOR AUTHOR'S ORGANIZ ATION 07/07/2024 [facility] DATE CREATED AUTHOR AUTHOR'S ORGANIZ ATION 12/02/2024 [facility] DATE CREATED AUTHOR AUTHOR'S ORGANIZ ATION 12/19/2024 [facility] DATE CREATED AUTHOR AUTHOR'S ORGANIZ ATION 04/01/2025 [facility] DATE CREATED AUTHOR AUTHOR'S ORGANIZ ATION 04/02/2025 [facility] EPIC Reason for Visit (unrecogniz ed section and content) SpecialtyDiagnoses / ProceduresReferred By ContactReferred To ContactRadiology Diagnoses Primary malignant neuroendocrine neoplasm of duodenum (CMS/HCC) Procedures CT chest abdomen pelvis w IV contrast Jazlyn Mcarthur APRN-CNP [address] [place] [address] Referral IDStatusReasonStart DateExpiration DateVisits RequestedVisits [id number] Review Perform Procedure [id number] / ProceduresReferred By ContactReferred To ContactGastroenterology Diagnoses Primary malignant neuroendocrine neoplasm of duodenum (CMS/HCC) Procedures EGD SD ESOPHAGOGASTRODUODENOSCOPY TRANSORAL DIAGNOSTIC SD EGD TRANSORAL BIOPSY SINGLE/MULTIPLE Jazlyn Mcarthur APRN-CNP [address] Jamison[address] [place] [address] Referral IDStatusReasonStart DateExpiration DateVisits RequestedVisits [id number] Ctdjuz66/[id number] Med Request SpecialtyDiagnoses / ProceduresReferred By ContactReferred To ContactRadiology Diagnoses Exam for clinical trial Procedures US COMPARISON OF OUTSIDE FILMS Grace Justice PA-C [address] [place] [address] Referral IDStatusReasonStart DateExpiration DateVisits RequestedVisits [id number] Review/[id number] / ProceduresReferred By ContactReferred To ContactGastroenterology Diagnoses Primary malignant neuroendocrine neoplasm of duodenum (Multi) Procedures Endoscopic Ultrasound (Upper) [place] [address] [place] [address] Referral IDStatusReasonStart DateExpiration DateVisits RequestedVisits [id number] Review/[id number] / ProceduresReferred By ContactReferred To ContactRadiology Diagnoses Bilateral renal cysts Adrenal adenoma, left Procedures MRI ABDOMEN W WO CONTRAST Grace Justice PA-C [address] [place] [address] Referral IDStatusReasonStart DateExpiration DateVisits RequestedVisits [id number]/17/20246/075753PfqphrQgkfndnxIygebpraKpdgpuchctej ReasonCommentsPainSpecialtyDiagnoses / ProceduresReferred By ContactReferred To ContactOrthopaedic Surgery Diagnoses Left rotator cuff tear arthropathy Chronic pain of right knee Arthritis Miriam Gatica, ANJEL [address] [place] [address] Phone: tel: fax: Jenniffer Sears PA [address] [facility] [address] [place] [address] Phone: tel: fax: Referral IDStatusReasonStart DateExpiration DateVisits RequestedVisits [id number] Specialty Services Required /[id number] / ProceduresReferred By ContactReferred To ContactGastroenterology Diagnoses Primary malignant neuroendocrine neoplasm of duodenum (Multi) Procedures EGD SD ESOPHAGOGASTRODUODENOSCOPY TRANSORAL DIAGNOSTIC SD EGD TRANSORAL BIOPSY SINGLE/MULTIPLE Jeremiah Magaña MD [address] [facility] [address] [place] [address] Referral IDStatusReasonStart DateExpiration DateVisits RequestedVisits [id number] Review/[id number] / ProceduresReferred By ContactReferred To ContactRadiology Diagnoses Primary malignant neuroendocrine neoplasm of duodenum (Multi) Procedures [place] chest [place] [address] [place] [address] Referral IDStatusReasonStart DateExpiration DateVisits RequestedVisits [id number] Perform Procedure /[id number] DateCommentsMed Rvpwbw474ReasonComments Follow-upReasonCommentsMed RefillReasonCommentsDiabetesReasonCommentsDiabetes HyperlipidemiaHypertensionReasonOnset DateCommentsMed Xmokdy4110/11/2024Reason Onset DateCommentsMed Kokhvv3010/19/2024ReasonCommentsAbdominal PainFeverReason CommentsMedicare Annual Wellness Visit InitialReasonCommentsAnkle PainSpecialty Diagnoses / ProceduresReferred By ContactReferred To ContactPodiatry Diagnoses Effusion, left ankle Procedures SD UNLISTED EVALUATION AND MANAGEMENT SERVICE Tomeka Rosado, ANJEL [address] [place] [address] Phone: tel: fax: Jonathan Petty, TAYLOR [address] [address] Phone: tel: fax: Referral IDStatusReasonStart DateExpiration DateVisits RequestedVisits [id number]/29/20253/ Care Teams (unrecognized sec tion and content) Team MemberRelationshipSpecialtyStart DateEnd Date Renea Barajas DO [address] [place] [address] PCP - Generalmi Jfjgwakz55/12/23Te MemberRelationshipSpecialtyStart Date End Date Renea Barajas DO [address] [place] [address] [facility] Vmngleyu03/12/23Te MemberRelationshipSpecialtyStart Date End Date Renea Barajas DO [address] [place] [address] PCP - GeneralFamily Mhbgxvnm10/12/23Team MemberRelationshipSpecialtyStart Date End Date Shaikh Ayala MD [address] [place] [address] PCP - GeneralInternal Medicine07/15/23Team MemberRelationshipSpecialtyStart Date End Date Shaikh Ayala MD [address] [place] [address] PCP - GeneralInternal Medicine07/15/23Team MemberRelationshipSpecialtyStart Date End Date Renea Barajas DO [address] [place] [address] PCP - GeneralFanvly Tbovdhyq68/12/23 [place] [address] [place] [address] Consulting PhysicianHematology and Oncology06/15/23Team MemberRelationship SpecialtyStart DateEnd Date Shaikh Ayala MD [address] [place] [address] PCP - General07/31/23Team MemberRelationshipSpecialtyStart DateEnd Date Shaikh Ayala MD [address] [place] [address] PCP - General07/31/23Team MemberRelationshipSpecialtyStart DateEnd Date Shaikh Ayala MD [address] [place] [address] PCP - GeneralInternal Medicine07/15/23 Renea Barajas DO [address] [place] [address] PCP - [facility]08/14/23Team MemberRelationshipSpecialtyStart DateEnd Date Renea Barajas DO [address] [place] [address] PCP - [facility]08/14/23 Miriam Gatica NP [address] [place] [address] Nurse PractitionerFamily Ootevsvl96/29/24Team MemberRelationshipSpecialtyStart DateEnd Date Renea Barajas DO [address] [place] [address] PCP - ACO [facility]08/14/23 Gerald Low MD [address] [place] [address] PCP - GeneralFamily Scdsadrw88/30/24 Miriam Gatica, ANJEL [address] [place] [address] [facility] Mmlimjdl50/29/24Team MemberRelationshipSpecialtyStart DateEnd Date Renea Barajas DO [address] [place] [address] PCP - [facility]08/14/23 Gerald Low MD [address] [place] [address] PCP - GeneralFamily Hrmypibu37/30/24 Miriam Gatica, ANJEL [address] [place] [address] [facility] Vwemjkmb00/29/24Team MemberRelationshipSpecialtyStart DateEnd Date Renea Barajas DO [address] [place] [address] PCP - [facility]08/14/23 Gerald Low MD [address] [place] [address] PCP - GeneralFamily Vynbifzn78/30/24 Miriam Gatica NP [address] [place] [address] Nurse Practitionermily Cemkljlo14/29/24Team MemberRelationshipSpecialtyStart DateEnd Date Renea Barajas DO [address] [place], [place] [address] PCP - GeneralFamily Ydkyrucu52/12/23 [place] [address] [place] [address] Consulting PhysicianHematology and Oncology06/15/23Team MemberRelationship SpecialtyStart DateEnd Date Shaikh Ayala MD [address] [place] [address] PCP - GeneralInternal Medicine12/31/23 [place] [address] [place] [address] Consulting PhysicianHematology and Oncology06/15/23Team MemberRelationship SpecialtyStart DateEnd Date Shaikh Ayala MD [address] [place] [address] PCP - GeneralInternal Medicine07/15/23 Renea Barajas DO [address] [place] [address] PCP - [facility]08/14/23Te MemberRelationshipSpecialtyStart DateEnd Date Shaikh Ayala MD [address] [place] [address] PCP - GeneralInternal Medicine07/15/23 Renea Barajas DO [address] [place] [address] PCP - [facility]08/14/23Te MemberRelationshipSpecialtyStart DateEnd Date Shaikh Ayala MD [address] [place] [address] PCP - GeneralInternal Medicine12/31/23 [place] [address] [place] [address] Consulting PhysicianHematology and Oncology06/15/23Te MemberRelationship SpecialtyStart DateEnd Date Shaikh Ayala MD [address] [place] [address] PCP - GeneralInternal Medicine12/31/23 [place] [address] [place] [address] Consulting PhysicianHematology and Oncology06/15/23Te MemberRelationship SpecialtyStart DateEnd Date Renea Barajas DO [address] [place] [address] PCP - ACO [facility]08/14/23 Gerald Low MD [address] [place] [address] PCP - GeneralFamily Achgfraq63/30/24 Miriam Gatica, ANJEL [address] [place] [address] Nurse Practitionermily Ezjegvee49/29/24Team MemberRelationshipSpecialtyStart DateEnd Date Renea Barajas DO [address] [place] [facility] [place] [address] PCP - O [facility]08/14/23 Gerald Low MD [address] [place] [address] PCP - GeneralFamily Oadtcybc45/30/24 Miriam Gatica, ANJEL [address] [place] [address] [facility] Ictqkdfb03/29/24Team MemberRelationshipSpecialtyStart DateEnd Date Gerald Low MD [address] [place] [address] PCP - Generalmi Iycoqzvr69/30/24 Renea Barajas DO [address] [place] [facility] [place] [address] PCP - ACO [facility]07/29/24 Miriam Gatica, ANJEL Nurse PractitionerFamily Pdlvvsxf12/29/24Team MemberRelationshipSpecialtyStart DateEnd Date Gerald Low MD [address] [place] [address] PCP - GeneralFamily Ntwzjqyr87/30/24 Renea Barajas DO [address] [place], [place] [address] PCP - ACO [facility]07/29/24 Miriam Gatica NP Nurse PractitionerUnity[facility]ly Jcuzsppt86/29/24Team MemberRelationshipSpecialtyStart DateEnd Date Gerald Low MD [address] [place] [address] PCP - GeneralFamily Kozvdosc93/30/24 Miriam Gatica NP Nurse Practitionermily Uyyghlkd78/29/24Team MemberRelationshipSpecialtyStart DateEnd Date Gerald Low MD [address] [place] [address] PCP - GeneralFamily Nwviwqcb44/30/24 Miriam Gatica NP Nurse Practitionermily Gfzbfjmi75/29/24Team MemberRelationshipSpecialtyStart DateEnd Date Gerald Low MD [address] [place] [address] PCP - GeneralFamily Lfrbrznd74/30/24 Miriam Gatica NP [facility] Nnpbykqs97/29/24Team MemberRelationshipSpecialtyStart DateEnd Date Gerald Low MD [address] [place] [address] PCP - Generalmily Rfdbydjh57/30/24 Miriam Gatica NP [facility] Nfxwuypq93/29/24Team MemberRelationshipSpecialtyStart DateEnd Date Gerald Low MD [address] [place] [address] PCP - Generalmily Lauctznl10/30/24 Miriam Gatica NP [facility] Ifdraxku91/29/24Team MemberRelationshipSpecialtyStart DateEnd Date Gerald Low MD [address] [place] [address] PCP - Generalmily Oepqbiqv02/30/24 Miriam Gatica ENTERTAINMENT MUSICIAN Nurse Pract[facility]erEs[facility] Uzglyuit32/29/24Team MemberRelationshipSpecialtyStart DateEnd Date Gerald Low MD [address] [place] [address] PCP - GeneralFamily Wxbefzax69/30/24 Miriam Gatica NP [facility] Lvoyemvx71/29/24Team MemberRelationshipSpecialtyStart DateEnd Date Gerald Low MD [address] [place] [address] PCP - [facility]04/13/24 Miriam Gatica, ANJEL [facility]04/12/24Team MemberRelationshipSpecialtyStart DateEnd Date Gerald Low MD [address] [place] [address] PCP - [facility]04/13/24 Miriam Gatica NP [facility]04/12/24Team MemberRelationshipSpecialtyStart DateEnd Date Gerald Low MD [address] [place] [address] PCP - [facility]04/13/24 Miriam Gatica NP [facility]04/12/24Team MemberRelationshipSpecialtyStart DateEnd Date Gerald Low MD [address] [place] [address] PCP - [facility]04/13/24 Miriam Gatica NP [facility]04/12/24Te MemberRelationshipSpecialtyStart DateEnd Date Shaikh Ayala MD PCP - General07/31/23Team MemberRelationshipSpecialtyStart DateEnd Date Gerald Low MD [address] [place] [address] PCP - [facility]04/13/24 Miriam Gatica, ANJEL [facility]04/12/24Team MemberRelationshipSpecialtyStart DateEnd Date Gerald Low MD [address] [place] [address] PCP - [facility]04/13/24 Miriam Gatica NP [facility]04/12/24Te MemberRelationshipSpecialtyStart DateEnd Date Shaikh Ayala MD PCP - [facility]07/31/23Team MemberRelationshipSpecialtyStart DateEnd Date Gerald Low MD [address] [place] [address] PCP - [facility]04/13/24 Miriam Gatica, ANJEL [facility]04/12/24Team MemberRelationshipSpecialtyStart DateEnd Date Gerald Low MD [address] [place] [address] PCP - [facility]04/13/24 Miriam Gatica NP Nurse PractitionerUnity[facility]ly Hwlskcdy73/29/24Team MemberRelationshipSpecialtyStart DateEnd Date Gerald Low MD [address] [place] [address] PCP - GeneralFamily Agwufqfa64/30/24 Miriam Gatica NP [facility] Prcutnpp52/29/24 Team Status: Active Member Role Status Dates Tomeka Rosado NP-C Primary Care Provider Active Team Status: Active Member Role Status Dates Tomeka Rosado NP-C Attending Provider Active Start: February 14, 2025 Team Status: Inactive Member Role Status Dates Tomeka Rosado NP-C Primary Care Provider Active Start: March 13, 2025 End: March 13, 2025Tomeka Rosado NP-CAttending ProviderActiveStart: March 13, 2025 End: March 13, 2025Team MemberRelationshipSpecialtyStart DateEnd Date Shaikh Ayala MD [address] [place] [address] PCP - GeneralInternal Medicine12/31/23 [place] [address] [place] [address] Consulting PhysicianHematology and Oncology06/15/23Team MemberRelationship SpecialtyStart [place] [address] [place] [address] Consulting PhysicianHematology and Oncology06/15/23Team MemberRelationship SpecialtyStart DateEnd Date Renea Barajas DO PCP - GeneralFamily Ukggaoig94/12/237 [place] [address] [place] [address] Consulting PhysicianHematology and Oncology06/15/23Team MemberRelationship SpecialtyStart DateEnd Date Gerald Low MD [address] [place] [address] [facility] - [facility] Peihfudy50/30/24 Miriam Gatica NP [facility] Pract[facility]erEs[facility] Rhkitdqc67/29/24Team MemberRelationshipSpecialtyStart DateEnd Date Gerald Low MD [address] [place] [address] [facility]CP - [facility] Sgymudwr30/30/24 Miriam Gatica NP [facility] Lgqvvmyh22/29/24 Team Status: Active Member Role Status Dates Tomeka Rosado NP-C Primary Care Provider Active Start: March 20, 2025 Hank Dill ProviderActiveStart: March 20, 2025 Team Status: Inactive Member Role Status Dates Tomeka Rosado NP-C Primary Care Provider Active Start: March 29, 2025 End: March 29, 2025Tomeka Rosado NP-CAttending ProviderActiveStart: March 29, 2025 End: March 29, 2025Team MemberRelationshipSpecialtyStart DateEnd Date Gerald Low MD [address] [place] [address] [facility] - [facility] Lbterfim69/30/24 Miriam Gatica NP Nurse PractitionerFamily Xlvnmuyq24/29/24Team MemberRelationshipSpecialtyStart DateEnd Date Gerald Low MD [address] [place] [address] PCP - GeneralFamily Pwznvfrx10/30/24 Miriam Gatica NP [facility]04/12/24 Goals (unrecognized section and content) Goals may be documented in a n alternate sectionGoals may be documented in an alternate section FOR RECORDS PERTAINING TO PATIENTS [...] BE BASED ON THE PRIMARY CLINICAL RECORDS. [employer] provides no warranty or guarantee of the accuracy or completeness of information in this document.
[2025-04-05 10:13] LABS: Anion Gap 13.4; Blood Urea Nitrogen 44.0 mg/dL (7.0-18.0); Calcium 9.6 mg/dL (8.5-10.1); Carbon Dioxide 26.5 mmol/L (21.0-32.0); Chloride 106 mmol/L (98-107); Estimated GFR (African America 49 (>=60 mL/min/1.73m^2); Estimated GFR (Non-African Ame 40 (>=60 mL/min/1.73m^2); Glucose 169 mg/dL (74-106); Potassium 4.9 mmol/L (3.5-5.1); Sodium 141 mmol/L (136-145)
== END 2025-04-05 09:20 | disposition home or self-care (01) ==
PROVIDERS: PCP Nurse Practitioner; Visit Provider Nurse Practitioner Family
DX: I50.22 Chronic systolic (congestive) heart failure (principal)
CPT/HCPCS: 36415; 80048

== ENCOUNTER 2025-04-12 08:55 | Outpatient (OUT) | payer MEDICARE, OTHER, SELFPAY ==
--- OUTSIDE RECORDS SUMMARY | 2025-03-29 09:30 | XMS_ITS | Encounter Summary ---
Author Organization [facility] Healthcare Address [address] [place] [address] Care Team Providers Care Student Affairs Vice President Name Role Phone Peggy Gatica NP Unavailable [phone] Gerald Low MD Primary Care Provider [phone] Reason for Referral * Clinic-Administered Medication (Routine) - ClosedSpecialtyDiagnoses / ProceduresReferred By ContactReferred To ContactOrthopaedic Surgery Diagnoses Left rotator cuff tear arthropathy Arthritis of left shoulder Procedures L Inj/Asp: L glenohumeral Fahad Sears PA [address] [place] [address] Phone: tel: fax: Referral IDStatusReasonStart DateExpiration DateVisits RequestedVisits [id number]/15/20254/ Reason for Visit * ReasonCommentsPain Encounter Details DateTypeDepartmentCare Team (Latest Contact Info)Vugcztgzoqe41/15/2025 9:30 AM EDTOffice Visit [facility] [address] [place] [address] Fahad Sears PA [address] [place] [address] Acute pain of left shoulder (Primary Dx); Left rotator cuff tear arthropathy; Arthritis of left shoulder Social History Tobacco UseTypesPacks/DayYears UsedDateSmoking Tobacco: [id number] - 1984Passive Smoke Exposure: NeverSmokeless Tobacco: NeverAlcohol UseStandard Drinks/WeekCommentsYes0 (1 standard drink = 0.6 oz pure alcohol)[id number] Health LiteracyAnswerDate RecordedHow often do you need to have someone help you when you read instructions, pamphlets, or other written material from your doctor or pharmacy?Wwjcom1507/06/2024Humiliation, Afraid, Rape, and Kick questionnaireAnswerDate RecordedWithin the [...] relatives?Once a week07/06/2024How often do you attend moravian or protestant services?Patient /22/2025Do you belong to any clubs or organizations such as moravian groups, unions, fraternal or athletic roseline ups, or school groups?No07/06/2024How often do you attend meetings of the clubs or organizations you belong to?Never07/06/2024re you , , , , never , or living with a partner?Bualncd8307/06/2024 AUDIT-CAnswerDate RecordedQ1: How often do you have [...] hard at all07/06/2024PHQ-2 AnswerDate RecordedPatient Health Questionnaire-2 Spphv022Finogden [facility] [place] of Occupational Health - Occupational Stress QuestionnaireAnswerDate RecordedDo you feel stress - tense, restless, nervous, or anxious, or unable to sleep at night because yourmind is troubled all the time - these days?Only a mrtwuu4307/06/2024Exercise Vital SignAnswerDate RecordedOn average, how many days [...] were you homeless or living in a skilled nursing (including now)?No07/06/2024Sex and Gender InformationValueDate RecordedSex Assigned at BirthNot on fileLegal PbxRdac4608/27/2022 7:35 PM EDTGender SyrriamoJpox86/15/2023 7:35 PM EDTSexual OrientationNot on filedocumented as [...] neurovascular intact s/p injection. . ( Codes 26336) Procedure, treatment alternatives, risks and benefits explained, [...] signs or symptoms of infection. Wearing a awake overnight monitor after a recent diagnosis of heart failure andhas been on medication to hopefully correct this. Treatment plan: Intra-articular injection requested again today for symptoms. [facility]better [facility], but shoulder could be injected every 4 [...] requiring urgent evaluation. Visit was preformed using [employer]-navy fighter pilot speech recognition. documented in this encounter Plan of Treatment DateTypeDepartmentCare Team (Latest Contact Info)Xdtvxjdmxnu99/31/2025 2:00 PM EDTOffice Visit [facility] [address] [place] [address] Jonathan Cowan DPM [address] [address] documented as of this encounter Procedures Procedure NamePriorityDate/TimeAssociated DiagnosisCommentsPR ARTHROCENTESIS ASPIR&/INJ MAJOR JT/BURSA W/RKZktgrgq58/15/2025 9:58 AM EDT Left rotator cuff tear arthropathy Arthritis of left shoulder documented in this encounter Results * [place] ARTHROCENTESIS ASPIR&/INJ MAJOR JT/BURSA W/US (03/29/2025 9:58 [...] neurovascular intact s/p injection. . ( Codes 88912) Procedure, treatment alternatives, risks and benefits explained, specific risks discussed. Consent was given by the patient. Patient was prepped and draped in the usual sterile fashion. Authorizing ProviderResult TypeResult StatusMattheaby Cho [place] [facility]/BEDSIDE ORDERABLESFinal Result documented in this encounter Visit Diagnoses Diagnosis Acute pain of left shoulder- Primary Left rotator cuff tear arthropathy Arthritis of left shoulder DJD (degenerative joint disease), ankle and foot, left- Primary Other specified disorders of synovium, left ankle and foot documented in this encounter Administered Medications Medication [...] DateEnd Date Gerald Low MD [address] [place] [address] PCP - GeneralFamily Ugienbnm87/30/24 Peggy Gatica NP Nurse PractitionerFamily Kduphjbb83/29/24documented as of this encounter
--- OUTSIDE RECORDS SUMMARY | 2025-03-31 13:40 | XMS_ITS | Encounter Summary ---
Author Organization [facility] Address [address] [place] [address] Care Team Providers Care Upholsterer Apprentice Name Role Phone Peggy Gatica BUTCHER SCULLION Unavailable [phone] Gerald oLw MD Primary Care Provider [phone] Reason for Visit * ReasonCommentsAnkle Pain * Consultation (Routine) - ClosedSpecialtyDiagnoses / ProceduresReferred By ContactReferred To ContactPodiatry Diagnoses Effusion, left ankle Procedures [facility] Tomeka Rosado NP [address] [place] [address] Phone: tel: fax: Jonathan Cowan DPM [address] [address] Phone: tel: fax: Referral IDStatusReasonStart DateExpiration DateVisits RequestedVisits [id number]/[id number] Encounter Details DateTypeDepartmentCare Team (Latest Contact Info)Xykwiznhcae28/17/2025 1:40 PM EDTOffice Visit [facility] [address] [place] [address] Jonathan Cowan DPM [address] [address] DJD (degenerative joint disease), ankle and foot, left (Primary Dx); Other specified disorders of synovium, left ankle and foot Social History Tobacco UseTypesPacks/DayYears UsedDateSmoking Tobacco: [id number] - 1983Passive Smoke Exposure: NeverSmokeless Tobacco: Never Tobacco Cessation:Counseling Given: Yes Alcohol UseStandard Drinks/WeekCommentsYes0 (1 standard drink = 0.6 oz pure alcohol)[id number] Health LiteracyAnswerDate RecordedHow often do you need to have someone help you when you read instructions, pamphlets, or other written material from your doctor or pharmacy?Xsozwi6307/06/2024Humiliation, Afraid, Rape, and Kick questionnaireAnswerDate RecordedWithin the [...] relatives?Once a week07/06/2024How often do you attend worship or muslim services?Patient lbfigvhm77/22/2025Do you belong to any clubs or organizations such as worship groups, unions, fraternal or athletic groups, or school groups?No07/06/2024How often do you attend meetings of the clubs or organizations you belong to?Never07/06/2024re you , , , , never , or living with a partner?Actozwl5507/06/2024UDIT-CAnswerDate RecordedQ1: How often do you have a [...] hard at all07/06/2024PHQ-2AnswerDate RecordedPatient Health Questionnaire-2 Score0 01/09/2025[facility] - Occupational Stress QuestionnaireAnswerDate RecordedDo you feel stress - tense, restless, nervous, or anxious, or unable to sleep at night because yourmind is troubled all the time - these days?Only a hxlgye7507/06/2024Exercise Vital SignAnswerDate Recorded On average, how many [...] steady place to sleep or slept in bull[place]elter (including now)?No02/18/2023Housing Stability Vital SignAnswerDate RecordedIn the last 12 months, was there a time when you were not able to pay the mortgage or rent on time?No07/06/2024In the past 12 months, how many times have you moved where you were living? At any time in the past 12 months, were you homeless or living in a alf (including now)?No07/06/2024Sex and Gender InformationValueDate RecordedSex Assigned at BirthNot on fileLegal ChzIpjq8808/27/2022 7:35 PM EDTGender Identity Male08/27/2022 7:35 PM EDTSexual OrientationNot on filedocumented as of this encounter Last Filed Vital Signs Vital SignReadingTime TakenCommentsBlood Pressure--Pulse--Temperature-- Respiratory Rgdo1369 1:48 PM EDTOxygen Saturation--Inhaled Oxygen Concentration--Damuob227 kg (225 lb)03/31/2025 1:48 PM FKFYiecfe737.8 cm (5' 10 )03/31/2025 1:48 PM EDTBody [...] Strain: Low Risk (03/21/2025) Received from [facility] Overall Financial Resource Strain (CARDIA) Difficulty of Paying Living Expenses: Not hard at all Food Insecurity: No Food Insecurity (03/21/2025) Received from [facility] Hunger Vital Sign Within the past 12 months, you worried that your food would run out before you got the money to buymore.: Never true Ran Out of Food in the Last Year: Not on file Transportation Needs: No Transportation Needs (03/21/2025) Received from [facility] Transportation In the past 12 months, has lack of transportation kept you from medical appointments or from getting medications?: No Lack of Transportation (Non-Medical): Not on file Physical Activity: Insufficiently Active (07/06/2024) Exercise Vital Sign Days of Exercise per Week: 2 days Minutes of Exercise per Session: 30 min Stress: No Stress Concern Present (07/06/2024) [place] of Occupational Health - Occupational Stress Questionnaire Feeling of Stress : Only a little Social Connections: Unknown (07/06/2024) Social Connection and Isolation Panel Frequency of Communication with Friends and Family: More than three times a week Frequency of Social Gatherings with Friends and Family: Once a week Attends Pentecostalism Services: Patient declined Active Member of Clubs or Organizations: No Attends Club or Organization Meetings: Never Marital Status: Intimate Partner Violence: Unknown (03/21/2025) Received from [facility] Humiliation, Afraid, Rape, and Kick questionnaire Within the last year, have you been afraid of your partner or ex-partner?: No Emotionally Abused: Not on file Physically Abused: Not on file Sexually Abused: Not on file Housing Stability: Low Risk (03/21/2025) Re[facility] from [facility] Stability Vital Sign In the last 12 months, was there a time when you were not able to pay the mortgage or rent on time?: No In the past 12 months, how many times have you moved where you were living?: 0 At any time in the past 12 months, were you homeless or living in a alf (including now)?: No ROS: General: denies fever, [...] Plan of Treatment DateTypeDepartmentCare Team (Latest Contact Info)Limhyhjcage59/31/2025 2:00 PM EDTOffice Visit [facility] [address] [place] [address] Jonathan Cowan DPM [address] [address] documented as of this encounter Procedures Procedure NamePriorityDate/TimeAssociated DiagnosisCommentsXR ANKLE 3+ VIEWS MDQVJbbheht51/17/2025 1:49 PM EDT DJD (degenerative joint disease), [...] disorders of synovium, left ankle and foot DJD (degenerative joint disease), ankle and foot, left- Primary Other specified disorders of synovium, left ankle and foot documented in this encounter Additional Health Concerns AssessmentNoted TimePHQ-9 Depression Total Score: 8:34 AM EDT documented as of this encounter Care Teams Team MemberRelationshipSpecialtyStart DateEnd Date Gerald Low MD [address] [place] [address] PCP - GeneralFamily Ypbnftbs09/30/24 Peggy Gatica NP Nurse PractitionerFamily Oawwrbvf09/29/24documented as of this encounter
--- OUTSIDE RECORDS SUMMARY | 2025-03-31 13:50 | XMS_ITS | Encounter Summary ---
Author Organization [facility] Address [address] [place] [address] Care Team Providers Care Accounting Methods Analyst Name Role Phone Peggy Gatica SOLAR PHOTOVOLTAIC DESIGNER Unavailable [phone] Gerald Low MD Primary Care Provider [phone] Encounter Details DateTypeDepartmentCare Team (Latest Contact Info)Zlmlriivgyq92/17/2025 1:50 PM EDTAncillary Procedure [facility] [address] [place] [id number] Social History Tobacco UseTypesPacks/DayYears UsedDateSmoking Tobacco: [id number] - 1983Passive Smoke Exposure: NeverSmokeless Tobacco: NeverAlcohol UseStandard Drinks/WeekCommentsYes0 (1 standard drink = 0.6 oz pure alcohol)[id number] Health LiteracyAnswerDate RecordedHow often do you need to have someone help you when you read instructions, pamphlets, or other written material from your doctor or pharmacy?Wafnhp3407/06/2024Humiliation, Afraid, Rape, and Kick questionnaireAnswerDate RecordedWithin the last year, have you been afraid of your partner or ex-partner?No02/18/2023Within the last year, have you been humiliated or emotionally abused in other ways by your partner or ex-partner?No 02/18/2023Within the last year, have you been kicked, hit, slapped, or otherwise physically hurt by your partner or ex-partner?No09/06/2023Within the last year, have you been raped [...] relatives?Once a week07/06/2024How often do you attend presybeterian or congregational services?Patient nnmnryvh48/22/2025Do you belong to any clubs or organizations such as presybeterian groups, unions, Regenerate or athletic roseline ups, or school groups?No07/06/2024How often do you attend meetings of the clubs or organizations you belong to?Never07/06/2024re you , , , , never , or living with a partner?Fdeyppx0207/06/2024 AUDIT-CAnswerDate RecordedQ1: How often do you have [...] hard at all07/06/2024PHQ-2 AnswerDate RecordedPatient Health Questionnaire-2 Glaly008[facility] [place] of [facility] - Occupational Stress QuestionnaireAnswerDate RecordedDo you feel stress - tense, restless, nervous, or anxious, or unable to sleep at night because yourmind is troubled all the time - these days?Only a qxzwqz3007/06/2024Exercise Vital SignAnswerDate RecordedOn average, how many days [...] InformationValueDate RecordedSex Assigned at BirthNot on fileLegal KyqVzyk2108/27/2022 7:35 PM EDTGender XlzncimyFdtb67/15/2023 7:35 PM EDTSexual OrientationNot on filedocumented as of this encounter Plan of Treatment DateTypeDepartmentCare Team (Latest Contact Info)Tuegvndmrmj64/31/2025 2:00 PM EDTOffice Visit [facility] [address] [place] [address] Jonathan Cowan DPM [address] [address] documented as of this encounter Procedures Procedure NamePriorityDate/TimeAssociated DiagnosisCommentsXR ANKLE 3+ VIEWS IJPJBhkgeil21/17/2025 1:49 PM EDT DJD (degenerative joint disease), [...] filedocumented in this encounter Additional Health Concerns AssessmentNoted TimePHQ-9 Depression Total Score: 13001/09/2025 8:34 AM EDT documented as of this encounter Care Teams Team MemberRelationshipSpecialtyStart DateEnd Date Gerald Low MD [address] [place] [address] PCP - GeneralFamily Vtrfqlym82/30/24 Peggy Gatica NP Nurse PractitionerFamily Rdnmmmla56/29/24documented as of this encounter
--- OUTSIDE RECORDS SUMMARY | 2025-04-12 08:59 | XMS_ITS | Encounter Summary ---
Author Organization [facility] Address [address] [place] [address] Care Team Providers Care Glass Sander Name Role Phone Peggy Gatica TEA [employer]REE FARM WORKER Unavailable [phone] Gerald Low MD Primary Care Provider [phone] Encounter Details DateTypeDepartmentCare Team (Latest Contact Info)Wjvkefjfqez02/25/2025Travel Social History Tobacco UseTypesPacks/DayYears UsedDateSmoking Tobacco: DfxacdNroeekafks3310653 - 1983Passive Smoke Exposure: NeverSmokeless Tobacco: NeverAlcohol UseStandard Drinks/WeekCommentsYes0 (1 standard drink = 0.6 oz pure alcohol)[id number] Health LiteracyAnswerDate RecordedHow often do you need to have someone help you when you read instructions, pamphlets, or other written material from your doctor or pharmacy?Meitbn6907/06/2024Humiliation, Afraid, Rape, and Kick questionnaireAnswerDate RecordedWithin the [...] relatives?Once a week07/06/2024How often do you attend adventist or yarsanism services?Patient egtjgerf40/22/2025Do you belong to any clubs or organizations such as adventist groups, unions, fraternal or athletic roseline ups, or school groups?No07/06/2024How often do you attend meetings of the clubs or organizations you belong to?Never07/06/2024re you , , , , never , or living with a partner?Xceuklv4307/06/2024 AUDIT-CAnswerDate RecordedQ1: How often do you have [...] hard at all07/06/2024PHQ-2 AnswerDate RecordedPatient Health Questionnaire-2 Ulwax051Finmountain view hospital [place] of Occupational [facility] - Occupational Stress QuestionnaireAnswerDate RecordedDo you feel stress - tense, restless, nervous, or anxious, or unable to sleep at night because yourmind is troubled all the time - these days?Only a uxhmxl8507/06/2024Exercise Vital SignAnswerDate RecordedOn average, how many days [...] InformationValueDate RecordedSex Assigned at BirthNot on fileLegal PtsMsih3208/27/2022 7:35 PM EDTGender DwudlaweDquu93/15/2023 7:35 PM EDTSexual OrientationNot on filedocumented as of this encounter Plan of Treatment DateTypeDepartmentCare Team (Latest Contact Info)Twshzbindas68/31/2025 2:00 PM EDTOffice Visit [facility] [address] [place] [address] Jonathan Cowan DPM [address] [address] documented as of this encounter Visit Diagnoses Not on filedocumented in this encounter Additional Health Concerns AssessmentNoted TimePHQ-9 Depression Total Score: 13001/09/2025 8:34 AM EDT documented as of this encounter Care Teams Team MemberRelationshipSpecialtyStart DateEnd Date Gerald Low MD [address] [place] [address] PCP - GeneralFamily Cdafklpa08/30/24 Peggy Gatica NP Nurse PractitionerFamily Chmhabhq24/29/24documented as of this encounter
--- OUTSIDE RECORDS SUMMARY | 2025-04-12 08:59 | XMS_ITS | Encounter Summary ---
Author Organization [facility] Address [address] [place] [address] Care Team Providers Care Bowling Floor Desk Clerk Name Role Phone Tomeka Rosado MD Primary Care Provider [phone] Encounter Details DateTypeDepartmentCare Team (Latest Contact Info)Hcbaqrwlgjy45/22/2025Telephone [facility] [place] [address] [place] [address] Maria Guadalupe Coyne MA Social History Tobacco UseTypesPacks/DayYears UsedDateSmoking Tobacco: VzwmyxDcixxuxare276.9 [birth year]14/1967 - 09/14/1984Smokeless Tobacco: NeverAlcohol UseStandard Drinks/Week CommentsNot Currently0 (1 standard drink = 0.6 oz pure alcohol)I rarely drink. [facility] UtilitiesAnswerDate RecordedIn the past 12 months [...] or living in a group home (including now)?No 03/21/2025Hunger Vital SignAnswerDate RecordedWithin the past 12 months, you worried that your food would run out before you got the money to buymore.Never true03/21/2025Ran Out of Food in the Last YearNot on file03/21/2025Sex and Gender InformationValueDate RecordedSex Assigned at JvfwlRrmg16/13/2024 6:49 AM ESTLegal YmqXhiy7512/12/2021 12:14 AM EDTGender GozwotqoWntw53/13/2024 6:49 AM EST Sexual OrientationHeterosexual or Lbhtggay31/13/2024 6:49 AM ESTdocumented as of this encounter Miscellaneous Notes * Telephone Encounter - Maria Guadalupe Coyne MA - 04/05/2025 3:11 PM EDT Images from the original note were not included. Regarding lab results from 04/05/2025: Kanika Sanchez, GABINO Coyne MA His kidney function worsened from when he was in the hospital. Would like for him to hold aldactonefor now. Hold entresto for 2 days then resume and have follow-up BMP in 1 week. Thank you. Spoke with patient's and she verbalized understanding. BMP order fax[facility] to [facility]. documented in this encounter Plan of Treatment DateTypeDepartmentCare Team (Latest Contact Info)Pnnvgqcdhop40/25/2025 11:15 AM ESTOffice Visit [facility] [place] [address] [place] [address] Noe San MD [address] [place] [address] NameTypePriorityAssociated DiagnosesOrder ScheduleBasic metabolic panelLab Routine Benign hypertensive heart disease with heart failure (CMS/HCC) Expected: 04/05/2025 (Approximate), Expires: 04/05/2026documented as of this encounter Visit Diagnoses Diagnosis Benign hypertensive heart disease with heart failure (CMS/HCC)- Primary documented in this encounter Care Teams Team MemberRelationshipSpecialtyStart DateEnd Date Tomeka Rosado MD [address] [place] [address] PCP - GeneralNurse Practitioner11/22/24documented as of this encounter
--- OUTSIDE RECORDS SUMMARY | 2025-04-12 09:00 | XMS_ITS ---
Author Organization [facility] Address [address] [place] [address] Care Team Providers Care Financial Supervisor Name Role Phone Tomeka Rosado MD Primary Care Provider [phone] Active Problems ProblemNoted DateDiagnosed DateElevated usrgbfiz89/07/2025 Assessment & Plan (03/21/2025 3:13 AM EDT): -Troponin 85->112->43 -Concern for ACS -Will initiate IV heparin infusion -Patient was given Plavix as well as therapeutic Lovenox at outside hospital -N.p.o. for possible cardiac cath -Most recent cardiac cath completed on 07/27/2023 showing mild CAD -Cardiology consult Atrial tachycardia, regnozccrj13/07/2025 Assessment & Plan (03/21/2025 3:13 AM EDT): - Continue beta-janet Adrenal adenoma, left03/21/2025 Assessment & Plan (03/21/2025 3:13 AM EDT): -Continue outpatient follow-up with urology Fluid vyqwfuqk98/07/2025 Assessment & Plan (03/21/2025 3:13 AM EDT): - BNP elevated at 2610 at outside hospital -He was given 40 mg of IV Lasix with improvement in shortness of breath -Echocardiogram is pending -Strict intake and output Left ankle uqwlbjde45/28/7537Cvhwmjyzggk78/01/2025LLQ pain11/28/2024rthritis 05/31/2024History of tobacco abuse05/31/20247315Qmvzmigltix42/17/2024URTI (acute upper respiratory infection)11/16/2023Leukemoid lrxxijhd75 Overview (10/27/2023): Last Assessment & Plan: WBC of 19 k on labs drawn at [facility] - recheck Pneumonia of left lower lobe due to infectious eopgjsce52 Overview (10/27/2023): Last Assessment & Plan: Left [...] that he may benefit from seeing a occupational health physician for DM, adrenal mass Abnormal nuclear stress test Overview (08/18/2023): Last Assessment & Plan: Nuclear stress test 07/08 - perfusion defect in LAD distribution. Asymptomatic. Instructed to start using ASA. Patient scheduled for [facility] on 07/29/23 No prior hx of CAD Encounter to establish care with new Overview (08/18/2023): Last Assessment & Plan: New Patient, here to establish care. Reviewed medical, surgical and social hx. Reviewed available old records. Reviewed and updated medication list. New Patient for this practice. Was previously established with Dr Barajas but had to switch [facility]. Near ytlffqc4907/10/2023 Assessment & Plan (08/18/2023 11:07 AM EST): Currently stable, no further episode noted Assessment & Plan (07/10/2023 5:18 PM EST): Recently admitted to [facility] for near syncope, bradycardia, abnormal stress [...] in November. Primary malignant neuroendocrine neoplasm of iybzgodh57/10/2023 Overview (08/18/2023): Last Assessment & Plan: Limited [...] repeat CT chest planned in 09/05. Accelerated squtihwbmarg44/12/202303/llergic /12/2023 08/18/20231986Fulptk28alance lhbbizu10enign prostatic hyperplasia with lower urinary tract iebunlmr49 Chronic joktjvrvd05iverticulosis of sigmoid colon02/24/2023 08/18/2023Esophageal tdwfkjidl49Fall Nxzwdbmeslmf21Left rotator cuff tear ueyfhntbezr52/12/2023 08/18/2023Obesity (BMI 30-39.9)Other chronic pain02/24/2023 08/18/2023ain in right kneeityriasis rosea02/24/2023 08/18/2023Slow transit auezjxuovjgt78Tubular adenoma of colon Type 2 diabetes mellitus with kidney complication, without long-term current use of quxgryc3602/24/2023iabetic polyneuropathy associated with type 2 diabetes /10/2023Mixed rgrahpnbourdqm71/12/2023 08/18/2023 Assessment & Plan (03/21/2025 3:13 AM EDT): - Continue rosuvastatin Assessment & Plan (08/18/2023 11:07 AM EST): Continue crestor 20 mg daily Morbid hkwqfki45/rimary ytcbgmocoeux48/12/202303/10/2023 Overview (08/18/2023): Last Assessment & Plan: Too [...] without complication, without long-term current use of mofmfnl96/10/2023 Assessment & Plan (03/21/2025 3:13 AM EDT): - ISS, ACHS Neuroendocrine gsumocijz29/10/2023 Assessment & Plan (03/21/2025 3:13 AM EDT): [...] DoseAutomatic EntryManual EntryFluoro Time8 minutes0 minutes8 minutesAir Dthqh790 mGy0 cKt072 mGy
--- OUTSIDE RECORDS SUMMARY | 2025-04-12 09:00 | XMS_ITS | Encounter Summary ---
Author Organization [facility] Address [address] [place] [address] Care Team Providers Care Rotary Engine Assembler Name Role Phone Peggy Gatica ONLINE MERCHANT Unavailable [phone] Gerald Low MD Primary Care Provider [phone] Encounter Details DateTypeDepartmentCare Team (Latest Contact Info)Bkzxcvadvhv79/15/2025Travel Social History Tobacco UseTypesPacks/DayYears UsedDateSmoking Tobacco: [id number] - 1983Passive Smoke Exposure: NeverSmokeless Tobacco: NeverAlcohol UseStandard Drinks/WeekCommentsYes0 (1 standard drink = 0.6 oz pure alcohol)[id number] Health LiteracyAnswerDate RecordedHow often do you need to have someone help you when you read instructions, pamphlets, or other written material from your doctor or pharmacy?Wizseh1607/06/2024Humiliation, Afraid, Rape, and Kick questionnaireAnswerDate RecordedWithin the [...] week07/06/2024How often do you attend druze or confucianist services?Patient tbugzqzs52/22/2025Do you belong to any clubs or organizations such as druze groups, unions, fraternal or athletic roseline ups, or school groups?No07/06/2024How often do you attend meetings of the clubs or organizations you belong to?Never07/06/2024re you , , , , never , or living with a partner?Wqjxrbu8107/06/2024 AUDIT-CAnswerDate RecordedQ1: How often do you have [...] hard at all07/06/2024PHQ-2 AnswerDate RecordedPatient Health Questionnaire-2 Xfgjf982Fin[facility] - Occupational Stress QuestionnaireAnswerDate RecordedDo you feel stress - tense, restless, nervous, or anxious, or unable to sleep at night because yourmind is troubled all the time - these days?Only a lnjztf7007/06/2024Exercise Vital SignAnswerDate RecordedOn average, how many days [...] were you homeless or living in a halfway (including now)?No07/06/2024Sex and Gender InformationValueDate RecordedSex Assigned at BirthNot on fileLegal EcyEdff4308/27/2022 7:35 PM EDTGender MqnjftxrNgid72/15/2023 7:35 PM EDTSexual OrientationNot on filedocumented as of this encounter Plan of Treatment DateTypeDepartmentCare Team (Latest Contact Info)Zrhvjymkcio59/31/2025 2:00 PM EDTOffice Visit [facility] [address] [place] [phone] Jonathan Cowan DPM [address] [address] documented as of this encounter Visit Diagnoses Not on filedocumented in this encounter Additional Health Concerns AssessmentNoted TimePHQ-9 Depression Total Score: 13001/09/2025 8:34 AM EDT documented as of this encounter Care Teams Team MemberRelationshipSpecialtyStart DateEnd Date Gerald Low MD [address] [place] [address] PCP - GeneralFamily Bdgjpwqu61/30/24 Peggy Gatica NP Nurse PractitionerFamily Szyywegg70/29/24documented as of this encounter
--- OUTSIDE RECORDS SUMMARY | 2025-04-12 09:00 | XMS_ITS | Clinical Summary ---
Author Organization [facility] Address [address] [place] [address] Care Team Providers Care Legal Technician Name Role Phone Tomeka Rosado MD Primary Care Provider [phone] Allergies Active AllergyReactionsCriticalityNoted BxfzBfemlmcnCvajgqmolplfQzthc48/05/2024 IosqwjrathgvuHtuur32/05/8769BwncqdxdlbZrvdq46/05/2024 Medications MedicationSigDispense QuantityRefillsLast FilledStart DateEnd DateStatus empagliflozin [...] 10 mg tablet Indications:Coronary artery disease involving [place] coronary artery of [place] heart without angina pectorisTake 2 tablets (20 mg) by mouth in the morning. 180 tablet Discontinued(Stop Taking at Discharge) hydrALAZINE (Apresoline) 50 mg tablet Indications:Primary hypertensionTake 1 tablet (50 mg) by mouth in the morning and at bedtime. 180 tablet Discontinued(Stop Taking at Discharge) amLODIPine (Norvasc) 10 mg tablet Take 5 mg by mouth if needed. Takes when BP is lkjtyjil02/08/2025Discontinued (Stop Taking at Discharge) Active Problems ProblemNoted DateDiagnosed DateElevated jfwrutdx52/07/2025 Assessment & Plan (03/21/2025 3:13 AM EDT): -Troponin 85->112->43 -Concern for ACS -Will initiate IV heparin infusion -Patient was given Plavix as well as therapeutic Lovenox at outside hospital -N.p.o. for possible cardiac cath -Most recent cardiac cath completed on 07/27/2023 showing mild CAD -Cardiology consult Atrial tachycardia, degbdmotaw10/07/2025 Assessment & Plan (03/21/2025 3:13 AM EDT): - Continue beta-janet Adrenal adenoma, left03/21/2025 Assessment & Plan (03/21/2025 3:13 AM EDT): -Continue outpatient follow-up with urology Fluid hamqbguu31/07/2025 Assessment & Plan (03/21/2025 3:13 AM EDT): - BNP elevated at 2610 at outside hospital -He was given 40 mg of IV Lasix with improvement in shortness of breath -Echocardiogram is pending -Strict intake and output Left ankle mnkaqmaa56/28/3126Tsuptrlzncq40/01/2025LLQ pain11/28/2024rthritis 05/31/2024History of tobacco abuse05/31/20247326Bmvmupctsrd05/17/2024URTI (acute upper respiratory infection)11/16/2023Leukemoid ycflavej22/ Overview (10/27/2023): Last Assessment & Plan: WBC of 19 k on labs drawn at [facility] - recheck Pneumonia of left lower lobe due to infectious apypuyxd77/ Overview (10/27/2023): Last Assessment & Plan: Left [...] that he may benefit from seeing a police communications dispatcher for DM, adrenal mass Abnormal nuclear stress test/10/2023 Overview (08/18/2023): Last Assessment & Plan: Nuclear stress test 07/08 - perfusion defect in LAD distribution. Asymptomatic. Instructed to start using ASA. Patient scheduled for [facility] on 07/29/23 No prior hx of CAD Encounter to establish care with new Overview (08/18/2023): Last Assessment & Plan: New Patient, here to establish care. Reviewed medical, surgical and social hx. Reviewed available old records. Reviewed and updated medication list. New Patient for this practice. Was previously established with Dr Barajas but had [facility] Near lnxmhbv4307/10/2023 Assessment & Plan (08/18/2023 11:07 AM EST): Currently stable, no further episode noted Assessment & Plan (07/10/2023 5:18 PM EST): Recently admitted to [facility] for near syncope, bradycardia, abnormal stress test [...] in November. Primary malignant neuroendocrine neoplasm of Overview (08/18/2023): Last Assessment & Plan: Limited [...] repeat CT chest planned in 09/05. Accelerated eazfxyewbtnw57llergic fqsslytf62/12/2023 08/18/20232772Ussykl51alance gucurej72enign prostatic hyperplasia with lower urinary tract fmaphzew57 Chronic lqpcwzrff43iverticulosis of sigmoid colon02/24/2023 08/18/2023Esophageal ronvuzjzc48Fall Rohwplcggoxk76Left rotator cuff tear soecwgbgdxe61/12/2023 08/18/2023Obesity (BMI 30-39.9)Other chronic pain02/24/2023 08/18/2023ain in right kneeityriasis rosea02/24/2023 08/18/2023Slow transit aufwdgtinspu64Tubular adenoma of colon Type 2 diabetes mellitus with kidney complication, without long-term current use of wlbgskt6502/24/2023iabetic polyneuropathy associated with type 2 diabetes xmxjjukj77Mixed omlranqnyuzqnk43/12/2023 08/18/2023 Assessment & Plan (03/21/2025 3:13 AM EDT): - Continue rosuvastatin Assessment & Plan (08/18/2023 11:07 AM EST): Continue crestor 20 mg daily Morbid isrotqw41rimary mphlzstjpuuc26 Overview (08/18/2023): Last Assessment & Plan: Too [...] without complication, without long-term current use of ldhdqog67/10/2023 Assessment & Plan (03/21/2025 3:13 AM EDT): - ISS, ACHS Neuroendocrine Assessment & Plan (03/21/2025 3:13 AM EDT): - Stable continue monitoring CKD stage 3a, GFR 45-59 ml/min Assessment & Plan (03/21/2025 3:13 AM EDT): - Stable, at baseline Bradycardia by electrocardiogram Assessment & Plan (08/18/2023 11:09 AM EST): Stop bisprolol- no beta blockers at this time Frequent PVCs Assessment & Plan (08/18/2023 11:07 AM EST): F/U with Dr San Encounters DateTypeDepartmentCare KjttGvbubfaotbo85/22/2025Telephone [facility] [address] [place] [address] Maria Guadalupe Coyne MA 03/28/2025 1:20 PM EDTFollow-Up [facility] [address] [place] [address] Kanika Sanchez CNP Chronic systolic heart failure (CMS/HCC) (Primary Dx); NICM (nonischemic cardiomyopathy) (CMS/HCC); NSVT (nonsustained ventricular tachycardia) (CMS/HCC); PVC (premature ventricular contraction); Orthostatic hypotension; Coronary artery disease involving [place] coronary artery of [place] heart without angina pectoris; Mixed hyperlipidemia; Benign hypertensive heart disease with heart failure (CMS/HCC)03/21/2025 6:00 PM EDT - 03/21/2025 8:00 PM EDTSurgery [facility] V[facility] Lab [address] [place] [address] Jai Subramanian MD Coronary dkrdzecduft09/07/2025 1:32 AM EDT - 03/22/2025 2:36 PM EDTHospital Encounter [facility] [address] [place] [address] Sukhjinder Schmitz MD Elevated troponin (Primary Dx); NSVT (nonsustained ventricular tachycardia) ([facility]/HCC) Discharge Disposition: Home or Self Care (01)03/21/2025Travelfrom Last 3 Months Family History Medical HistoryRelationNameCommentsCancerBrother 1SamDiabetes type IIBrother 1 SamHypertensionBrother 1SamCancerBrother 2BobDiabetes type IIBrother 2BobCancer FatherSamuel PrestonDiabetes type IIFatherSamuel PrestonHypertensionFatherSamuel PrestonAnginaMotherRegina PrestonCancerMotherRegina PrestonHeart attackMother Yasmin PrestonHeart failureMotherRegina PrestonHypertensionMotherRegina Josep CancerSisterNatalieDiabetes type IISisterNatalieRelationNameStatusComments Brother 1SamBrother 2BobFatherSamuel PrestonMotherRegina PrestonSisterNatalie Social History Tobacco UseTypesPacks/DayYears UsedDateSmoking Tobacco: CgmirhZmxpykvpzp443.9 10/14/1967 - 09/14/1983Smokeless Tobacco: Never Tobacco Cessation:Counseling Given: Not Answered Alcohol UseStandard Drinks/WeekCommentsNot Currently0 (1 standard drink = 0.6 oz pure alcohol)I rarely drink.[place] UtilitiesAnswerDate RecordedIn the past 12 months has the [employer], gas, oil, or water [employer] threatened to shut off services in your [...] or living in a care home (including now)?No03/21/2025Hunger Vital SignAnswerDate Recorded Within the past 12 months, you worried that your food would run out before you got the money to buymore.Never true03/21/2025Ran Out of Food in the Last YearNot on file03/21/2025Sex and Gender InformationValueDate RecordedSex Assigned at CzbypOjhg12/13/2024 6:49 AM ESTLegal NxkAhqu2912/12/2021 12:14 AM EDTGender YkxutwjaGhpp42/13/2024 6:49 AM ESTSexual OrientationHeterosexual or Straight 07/28/2023 6:49 AM EST Last Filed Vital Signs Vital SignReadingTime TakenCommentsBlood Jhnnwilt031/7303/28/2025 1:17 PM EDT Lbaqp509203/28/2025 1:17 PM VQTZnakpdlcorj44.5 ??C (97.7 ??F)03/22/2025 8:00 AM EDTRespiratory Atee0973 8:00 AM EDTOxygen Mesmxoramo96%03/28/2025 1:17 PM EDTInhaled Oxygen Concentration--Vxicko403 kg (231 lb)03/28/2025 1:17 PM EDT Xbvbim969.8 cm (5' 10 )03/28/2025 1:17 PM EDTBody Mass Index33.151 1:17 PM EDT Plan of Treatment DateTypeDepartmentCare Team (Latest Contact Info)Xlefibmxged23/25/2025 11:15 AM ESTOffice Visit [facility] [address] [place] [address] Noe San MD [address] [place] [address] Health MaintenanceDue DateLast DoneCommentsMedicare Annual Wellness (AWV) 1950Diabetes: Retinopathy Ahduubvsj04/09/1959Depression Screening 1961Zoster Vaccines (1 of 2), 05/15/2016Diabetes: Hemoglobin A1C/OVID-19 Vaccine ( season) , 10/15/2021, 03/25/2021, Additional history existsInfluenza Vaccine (#1)/, 03/20/2023, 03/27/2022, Additional history existsFall Risk Usdmsytbl64/dult Cjqudnc67, 10/27/2018, 03/14/20117544ZiviibfqlgoYdgmrecwonig54/16/2021olorectal Cancer ScreeningDiscontinuedPneumococcal Vaccine: 50+ CyglmHhrnirmho21/12/2023, 11/22/2018, 05/21/2018, Additional history existsCT ColonographyDiscontinued FIT-DNADiscontinuedFITDiscontinuedFOBTDiscontinuedHIB [...] Procedures Procedure NamePriorityDate/TimeAssociated DiagnosisCommentsPOCT GLUCOSE METER UNSOLICITED ZHWCZOESwlvufb43/08/2025 11:00 AM EDT POCT GLUCOSE METER UNSOLICITED UFPLHKEQpsyoog54/08/2025 7:31 AM EDT LIPID PANELAdd-On03/22/2025 4:26 AM EDT PHOSPHORUSPending Imsfnolnk53/08/2025 4:26 AM EDT MAGNESIUMPending Wafbsuewg74/08/2025 4:26 AM EDT CBCPending Azmufrypa60/08/2025 4:26 AM EDT BASIC METABOLIC PANELPending Mpmicpamz30/08/2025 4:26 AM EDT POCT GLUCOSE METER UNSOLICITED UNDZPYFCpemhoz25/07/2025 8:33 PM EDT POCT GLUCOSE METER UNSOLICITED WQVZCMQYhaagbb58/07/2025 4:41 PM EDT HIGH SENSITIVITY TROPONIN JJumrdaf09/07/2025 2:41 PM EDT RIGHT HEART WIZMBrdvrwb40/07/2025 11:29 AM EDT Elevated troponin CORONARY JSDZJLWQTFFDqbmwee90/07/2025 11:29 AM EDT Elevated troponin XR CHEST 1 RIOHAZYJ71/07/2025 9:26 AM EDT COMPLETE ECHO (TTE) W/ IMAGING GRIWPIgzghux88/07/2025 9:10 AM EDT POCT GLUCOSE METER UNSOLICITED AFHEOVPUkntsxm93/07/2025 7:25 AM EDT ECG 12-OWLLJNAB89/07/2025 5:02 AM EDT HIGH SENSITIVITY TROPONIN VXhdwb8503/21/2025 3:45 AM EDT FBWCkvrmfy90/07/2025 3:45 AM EDT BASIC METABOLIC ZBEJWZlhqncg10/07/2025 3:45 AM EDT ANTI-FACTOR XAAdd-On03/21/2025 2:09 AM EDT APTTSTAT Add-on03/21/2025 2:09 AM EDT B-TYPE NATRIURETIC CZIKFNHDNKY83/07/2025 2:09 AM EDT CBC WITH AUTO IOFLAQDHSAXLKHZG97/07/2025 2:09 AM EDT CBC AND KNCRBWMWJBXVQPNT37/07/2025 2:09 AM EDT PROTIME-EIOPAQK2703/21/2025 2:09 AM EDT HIGH SENSITIVITY TROPONIN ISTAT1 2:09 AM EDT MGLFIEQCZECBWF58/07/2025 2:09 AM EDT GWXGQTDAKNLUE42/07/2025 2:09 AM EDT COMPREHENSIVE METABOLIC QMWWPZNZD22/07/2025 2:09 AM EDT from Last 3 Months Results * (ABNORMAL) POCT glucose meter (03/22/2025 11:00 AM EDT) Only the most recent of5 resultswithin the time period is included. ComponentValueRef RangeTest MethodAnalysis TimePerformed AtPathologist Signature Glucose RMH997(H)70 - 105 mg/dL03/22/2025 11:11 AM EDT[facility] ([facility]) Comment:jarizmeSpecimen (Source)Anatomical Location / LateralityCollection Method / VolumeCollection TimeReceived TimeBloodCapillary blood specimen / Gcvvddn9603/22/2025 11:00 AM EDT1 11:11 AM EDT Narrative [facility] ([facility]) - 03/22/2025 11:11 AM EDT Waived Testing in the ED is performed under the ED CLIA certificate #[id number]. Authorizing ProviderResult TypeResult StatusOmar Nadir BARBER BLOOD ORDERABLES Final ResultPerforming OrganizationAddressCity/State/ZIP CodePhone Number [facility] ([facility]) [address] [place] [address] * (ABNORMAL) CBC (03/22/2025 4:26 AM EDT) Only the most recent of2 resultswithin the time period is included. ComponentValueRef RangeTest MethodAnalysis TimePerformed AtPathologist Signature Auto WBC9.484.00 - 10.60 10*3/uL03/22/2025 5:15 AM [facility] ([facility]) RBC4.854.20 - 5.70 10*6/uL03/22/2025 5:15 AM [facility] ([facility]) Uilnisarvo10.913.0 - 17.0 g/dL03/22/2025 5:15 AM [facility] ([facility]) Qlsxndifwp10.839.0 - 50.0 %03/22/2025 5:15 AM [facility] ([facility])MCV 88.282.0 - 98.0 fL03/22/2025 5:15 AM [facility] ([facility])MCH28.727.0 - 33.0 pg03/22/2025 5:15 AM [facility] ([facility])MCHC32.532.0 - 35.0 g/dL 03/22/2025 5:15 AM [facility] ([facility])RDW15.9(H)11.5 - 15.0 % 03/22/2025 5:15 AM [facility] ([facility])Fyrqluesv123808 - 400 10*3/uL 03/22/2025 5:15 AM [facility] ([facility])Specimen (Source)Anatomical Location / LateralityCollection Method / VolumeCollection TimeReceived TimeBlood Venous blood specimen / UnknownVenipuncture / Omturck4403/22/2025 4:26 AM EDT 03/22/2025 4:57 AM EDT Narrative Authorizing ProviderResult TypeResult StatusSukhjinder BARBER BLOOD ORDERABLES Final ResultPerforming OrganizationAddressCity/State/ZIP CodePhone Number [facility] ([facility]) [address] [place] [address] * Phosphorus (03/22/2025 4:26 AM EDT) Only the most recent of2 resultswithin the time period is included. ComponentValueRef RangeTest MethodAnalysis TimePerformed AtPathologist Signature Phosphorus3.72.5 - 5.0 mg/dL03/22/2025 5:25 AM [facility] ([facility]) Specimen (Source)Anatomical Location / LateralityCollection Method / Volume Collection TimeReceived TimeBloodVenous blood specimen / UnknownVenipuncture / Qsqkfth0103/22/2025 4:26 AM EDT1 4:57 AM EDT Narrative Authorizing ProviderResult TypeResult StatusSukhjinder BARBER BLOOD ORDERABLES Final ResultPerforming OrganizationAddressCity/State/ZIP CodePhone Number [facility]) [address] [place] [address] * Magnesium (03/22/2025 4:26 AM EDT) Only the most recent of2 resultswithin the time period is included. ComponentValueRef RangeTest MethodAnalysis TimePerformed AtPathologist Signature Magnesium2.01.9 - 2.7 mg/dL03/22/2025 5:25 AM [facility]) Specimen (Source)Anatomical Location / LateralityCollection Method / Volume Collection TimeReceived TimeBloodVenous blood specimen / UnknownVenipuncture / Ungbapr9703/22/2025 4:26 AM EDT1 4:57 AM EDT Narrative Authorizing ProviderResult TypeResult StatusSukhjinder BARBER BLOOD ORDERABLES Final ResultPerforming OrganizationAddressCity/State/ZIP CodePhone Number [facility] ([facility]) [address] [place] [address] * (ABNORMAL) Lipid panel (03/22/2025 4:26 AM EDT)ComponentValueRef RangeTest MethodAnalysis TimePerformed AtPathologist IrgvcolmhObzdomgxszuoo145(H)<150 mg/dL03/22/2025 7:59 AM [facility] ([facility])Comment: TRIGLYCERIDE REFERENCE RANGE: 20 YEARS AND OLDER ?CARDIOVASCULAR RISK LESS THAN 150 mg/dL ? LOW RISK 150 TO 199 mg/dL ?BORDERLINE RISK 200 mg/dL AND GREATER ? HIGH RISK Xabpgcudkkn14(L)120 - 200 mg/dL03/22/2025 7:59 AM [facility] ([facility]) LDL Imkwdvlblb700 - 160 mg/dL03/22/2025 7:59 AM [facility] ([facility])HDL 21(L)23 - 92 mg/dL03/22/2025 7:59 AM [facility] ([facility])Non HDL Pobkfrrdtyi5927/08/2025 7:59 AM [facility] ([facility])Total VLDL-C330 - 40 mg/dL03/22/2025 7:59 AM [facility] ([facility])Cholesterol/HDL Ratio4.6 mg/dL03/22/2025 7:59 AM [facility] ([facility])Specimen (Source)Anatomical Location / LateralityCollection Method / VolumeCollection TimeReceived TimeBlood Venous blood specimen / UnknownVenipuncture / Wfadjfe9803/22/2025 4:26 AM EDT 03/22/2025 4:57 AM EDT Narrative Authorizing ProviderResult TypeResult StatusOmar Nadir HERNANDEZLAB BLOOD ORDERABLES Final ResultPerforming OrganizationAddressCity/State/ZIP CodePhone Number [facility] ([facility]) [address] [place] [address] * (ABNORMAL) Basic metabolic panel (03/22/2025 4:26 AM EDT) Only the most recent of2 resultswithin the time period is included. ComponentValueRef RangeTest MethodAnalysis TimePerformed AtPathologist Signature Dbiuow361352 - 145 mmol/L1 5:25 AM [facility] ([facility]) Potassium4.23.5 - 5.1 mmol/L1 5:25 AM [facility] ([facility]) Rnqqgbng10924 - 107 mmol/L1 5:25 AM [facility] ([facility])CO223 21 - 31 mmol/L1 5:25 AM [facility] ([facility])BUN30(H)7 - 25 mg/dL03/22/2025 5:25 AM [facility] ([facility])Creatinine1.34(H)0.70 - 1.30 mg/dL03/22/2025 5:25 AM [facility] ([facility])Geiidob231(H)70 - 100 mg/dL03/22/2025 5:25 AM [facility] ([facility])Calcium9.18.6 - 10.3 mg/dL 03/22/2025 5:25 AM [facility] ([facility])Anion Cdo798 - 20 mmol/L 03/22/2025 5:25 AM [facility] ([facility])eGFR55.2(L)>60.0 mL/min/1.73m*2 03/22/2025 5:25 AM [facility] ([facility])Comment:[facility]???s estimated glomerular filtration rate (eGFR) will [...] group of individuals. BUN/Creatinine Ratio22. 5:25 AM [facility] ([facility])Specimen (Source)Anatomical Location / LateralityCollection Method / VolumeCollection TimeReceived TimeBloodVenous blood specimen / UnknownVenipuncture / Unknown 03/22/2025 4:26 AM EDT10/01/2025 4:57 AM EDT Narrative Authorizing ProviderResult TypeResult StatusOmar Nadir HERNANDEZLAB BLOOD ORDERABLES Final ResultPerforming OrganizationAddressCity/State/ZIP CodePhone Number [facility] ([facility]) [address] [place] [address] * (ABNORMAL) High Sensitivity Troponin I (03/21/2025 2:41 PM EDT) Only the most recent of3 resultswithin the time period is included. ComponentValueRef RangeTest MethodAnalysis TimePerformed AtPathologist Signature High Sensitivity Troponin I28(H)<20 ng/L1 3:55 PM EDTPRES[facility] ([facility])Specimen (Source)Anatomical Location / LateralityCollection Method / VolumeCollection TimeReceived TimeBloodVenous blood specimen / Unknown Venipuncture / Omimofs3103/21/2025 2:41 PM EDT1 3:21 PM EDT Narrative Authorizing ProviderResult TypeResult StatusOmar Nadir HERNANDEZLAB BLOOD ORDERABLES Final ResultPerforming OrganizationAddressCity/State/ZIP CodePhone Number [facility] ([facility]) [address] [place] [address] * CORONARY ANGIOGRAPHY, RIGHT HEART CATH (03/21/2025 [...] informed consent. 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 The right neck area was prepped and draped in usual fashion. Micropuncture technique was used for access under ultrasound guidance into the right internal jugular vein. ??A 6-Greenlandic x 11 cm sheath was placed. ?? The right wrist area was prepped and draped in usual fashion. Micropuncture technique was used for access in the radial artery. ??A 6-Greenlandic x 11 cm sheath was placed. ??Verapamil was given through the sheath, and heparin was administered intravenously. ?? A 5-Greenlandic Ponce catheter was used for right heart catheterization and measurement of pressures and calculation of cardiac output using the estimated Pretty method. ??Ponce catheter was removed. Bilateral selective coronary angiography was then performed using 6-Greenlandic JL3.5 diagnostic catheter for engagement of the left coronary artery and 6-Greenlandic JR5 diagnostic catheter for engagement of the [...] pain [R07.89] Authorizing ProviderResult TypeResult StatusGeorge Moris [facility] CATH PROCEDURESFinal Result * XR chest [...] Narrative 03/21/2025 12:08 PM EDT 1 1 [facility] Heart Station [address] [place] [address] [phone] (fax) Echocardiogram-[facility] Name: BRENT CAR Study Date: 03/21/2025 08:32 AM B/P: 121 mmHg/55 mmHg HR: 75 bpm Date of : 1950 Location: [facility] Height: 70 in. Age: 74 year(s) Patient [...] No pericardial effusion. Procedure Staff Reading Group: [facility] Referring Physician: TOMEKA ROSADO Nonprofit Manager: MARK Castro ??Ordering Physician: LEE ANN MEJIA Wall Motion Scores -1 - hyperkinesia, 0 - not evaluated, 1 - normal, 2 - hypokinesia, 3 - akinesia, 4 - dyskinesia Procedure Note Megan Harrington MD - 03/21/2025 1 1 [facility] Heart Station [address] [place], [place] [phone] (fax) Echocardiogram-[facility] Name: BRENT CAR Study Date: 03/21/2025 08:32 AM B/P: 121 mmHg/55 mmHg HR: 75 bpm Date of : 1950 Location: [facility] Height: 70 in. Age: 74 year(s) Patient [...] No pericardial effusion. Procedure Staff Reading Group: [facility] Referring Physician: TOMEKA ROSADO Nonprofit Manager: Neelima Oliver [facility] Ordering Physician: LEE ANN MEJIA Wall Motion Scores -1 - hyperkinesia, 0 - not evaluated, 1 - normal, 2 - hypokinesia, 3 - akinesia, 4 - dyskinesia Authorizing ProviderResult TypeResult StatusMequirino Mejia [facility] ECHO PROCEDURES Final Result * ECG 12 lead (03/21/2025 5:02 AM EDT)ComponentValueRef RangeTest MethodAnalysis TimePerformed AtPathologist SignatureVentricular Xmqe26JDFCZ MUSEAtrial Rate 74BPMGE MUSEPR Yannokbp015foDB MUSEQRS PJWWPKIY411obUX MUSEQT Bzfhfcdm062wqOT MUSEQTC CALCULATION(BAZETT)552msGE MUSEP Wosa93azmvswmMN MUSER-Qosj156amwzpip GE MUSET Wave [place]-12degreesGE MUSESpecimen (Source)Anatomical Location / LateralityCollection Method / [...] on 03/22/2025 10:43:39 AM Authorizing ProviderResult TypeResult StatusDoctors Hospital of [facility] ORDERABLESFinal ResultPerforming OrganizationAddressCity/State/ZIP CodePhone Number GE MUSE * (ABNORMAL) CBC auto differential (03/21/2025 2:09 AM EDT)ComponentValueRef RangeTest MethodAnalysis TimePerformed AtPathologist SignatureAuto WBC11.08(H) 4.00 - 10.60 10*3/uL03/21/2025 2:34 AM [facility] ([facility])RBC5.20 4.20 - 5.70 10*6/uL03/21/2025 2:34 AM [facility] ([facility])Hemoglobin 14.913.0 - 17.0 g/dL03/21/2025 2:34 AM [facility] ([facility])Hematocrit 45.839.0 - 50.0 %03/21/2025 2:34 AM [facility] ([facility])MCV88.182.0 - 98.0 fL03/21/2025 2:34 AM [facility] ([facility])MCH28.727.0 - 33.0 pg 03/21/2025 2:34 AM [facility] ([facility])MCHC32.532.0 - 35.0 g/dL 03/21/2025 2:34 AM [facility] ([facility])RDW15.9(H)11.5 - 15.0 % 03/21/2025 2:34 AM [facility] ([facility])Neutrophils %72.8(H)40.0 - 72.0 %03/21/2025 2:34 AM [facility] ([facility])Lymphocytes %16.7(L)20.0 - 45.0 %03/21/2025 2:34 AM [facility] ([facility])Monocytes %8.65.0 - 12.0 %03/21/2025 2:34 AM [facility] [facility] ([facility])Eosinophils %1.10.0 - 6.0 %03/21/2025 2:34 AM [facility] ([facility])Basophils %0.40.0 - 1.0 % 03/21/2025 2:34 AM [facility] ([facility])Neutrophils Absolute8.08(H) 1.60 - 7.60 10*3/uL03/21/2025 2:34 AM [facility] ([facility])Lymphocytes Absolute1.851.20 - 4.00 10*3/uL03/21/2025 2:34 AM [facility] ([facility])Monocytes Absolute0.950.10 - 1.00 10*3/uL03/21/2025 2:34 AM [facility] ([facility])Eosinophils Absolute0.120.00 - 0.50 10*3/uL03/21/2025 2:34 AM [facility] ([facility])Basophils Absolute0.040.00 - 0.20 10*3/uL 03/21/2025 2:34 AM [facility] ([facility])Ymgpqgggc423(H)150 - 400 10*3/uL03/21/2025 2:34 AM [facility] ([facility])nRBC %0.00 %03/21/2025 2:34 AM [facility] ([facility])Immature Granulocytes %0.40.0 - 1.0 % 03/21/2025 2:34 AM [facility] ([facility])Immature Granulocytes Absolute 0.040.00 - 0.20 10*3/uL03/21/2025 2:34 AM [facility] ([facility]) Specimen (Source)Anatomical Location / LateralityCollection Method / Volume Collection TimeReceived TimeBloodVenous blood specimen / UnknownVenipuncture / Frfwygk2303/21/2025 2:09 AM EDT1 2:20 AM EDT Narrative Authorizing ProviderResult TypeResult Status[facility] Centers[facility] BLOOD ORDERABLES Final ResultPerforming OrganizationAddressCity/State/ZIP CodePhone Number [facility]) [address] [place] [address] * aPTT - baseline (03/21/2025 2:09 AM EDT)ComponentValueRef RangeTest Method Analysis TimePerformed AtPathologist AirvsmjkijVPZ73.425.0 - 35.0 Seconds 03/21/2025 3:09 AM [facility] ([facility])Comment:Clinical significance of the APTT is questionable in the presence of heparin.Specimen (Source) Anatomical Location / LateralityCollection Method / VolumeCollection Time Received TimeBloodVenous blood specimen / UnknownVenipuncture / Unknown 03/21/2025 2:09 AM EDT1 2:15 AM EDT Narrative Authorizing ProviderResult TypeResult StatusN[facility] Centers[facility] BLOOD ORDERABLES Final ResultPerforming OrganizationAddressCity/State/ZIP CodePhone Number [facility]) [address] [place] [address] * Protime-INR (03/21/2025 2:09 AM EDT)ComponentValueRef RangeTest MethodAnalysis TimePerformed AtPathologist MvsramycoAymbuyq88.412.3 - 14.8 Zpouhey7503/21/2025 2:42 AM [facility] ([facility])INR1.020.90 - 1.101 2:42 AM EDT [facility] ([facility])Comment: ACCCP RECOMMENDED INR FOR WARFARIN THERAPY CONDITION [...] TimeReceived TimeBloodVenous blood specimen / UnknownVenipuncture / Xfbhepg8103/21/2025 2:09 AM EDT1 2:15 AM EDT Narrative Authorizing ProviderResult TypeResult StatusMeHemet [facility] Center BLOOD ORDERABLES Final ResultPerforming OrganizationAddressCity/State/ZIP CodePhone Number [facility] ([facility]) [address] [place], [place] [id number] * Anti-Xa (Heparin Level) (03/21/2025 2:09 AM EDT)ComponentValueRef RangeTest MethodAnalysis TimePerformed AtPathologist SignatureAnti-Xa (Heparin)0.450.3 - 0.7 IU/mL03/21/2025 3:10 AM [facility] ([facility])Comment:Rivaroxaban and Apixaban will interfere with the anti Xa assay used to monitor UFH and LMWH.Specimen (Source)Anatomical Location / LateralityCollection Method / VolumeCollection TimeReceived TimeBloodVenous blood specimen / Unknown Venipuncture / Pyjrlfp5103/21/2025 2:09 AM EDT1 2:15 AM EDT Narrative Authorizing ProviderResult TypeResult StatusSelect [facility] BLOOD ORDERABLES Final ResultPerforming OrganizationAddressCity/State/ZIP CodePhone Number [facility]) [address] [place] [address] * (ABNORMAL) B-type natriuretic peptide (03/21/2025 2:09 AM EDT)ComponentValue Ref RangeTest MethodAnalysis TimePerformed AtPathologist ZeocpfwxtMJZ020(H)0 - 100 pg/mL03/21/2025 2:50 AM [facility] ([facility])Specimen (Source) Anatomical Location / LateralityCollection Method / VolumeCollection Time Received TimeBloodVenous blood specimen / UnknownVenipuncture / Unknown 03/21/2025 2:09 AM EDT1 2:20 AM EDT Narrative Authorizing ProviderResult TypeResult StatusSelect [facility] BLOOD ORDERABLES Final ResultPerforming OrganizationAddressCity/State/ZIP CodePhone Number [facility] ([facility]) [address] [place] [address] * (ABNORMAL) Comprehensive metabolic panel (03/21/2025 2:09 AM EDT)Component ValueRef RangeTest MethodAnalysis TimePerformed AtPathologist SignatureSodium 911871 - 145 mmol/L1 2:46 AM [facility] ([facility])Potassium 4.23.5 - 5.1 mmol/L1 2:46 AM [facility] ([facility])Oohexrvr335 98 - 107 mmol/L1 2:46 AM [facility] ([facility])FY95653 - 31 mmol/L1 2:46 AM [facility] ([facility])Anion Mmf283 - 20 mmol/L 03/21/2025 2:46 AM [facility] ([facility])BUN31(H)7 - 25 mg/dL03/21/2025 2:46 AM [facility] ([facility])Creatinine1.33(H)0.70 - 1.30 mg/dL 03/21/2025 2:46 AM [facility] ([facility])BUN/Creatinine Ratio23.3 03/21/2025 2:46 AM [facility] ([facility])Yvfycck366(H)70 - 100 mg/dL 03/21/2025 2:46 AM [facility] ([facility])Calcium9.48.6 - 10.3 mg/dL 03/21/2025 2:46 AM [facility] ([facility])JUJ8131 - 39 U/L1 2:46 AM [facility] ([facility])ALT (SGPT)97 - 52 U/L1 2:46 AM [facility] ([facility])Alkaline Wbwnjmzqdpc06344 - 104 U/L1 2:46 AM [facility] ([facility])Total Protein7.06.0 - 8.3 g/dL03/21/2025 2:46 AM [facility] ([facility])Albumin4.33.5 - 5.7 g/dL03/21/2025 2:46 AM [facility] ([facility])Total Bilirubin0.60.3 - 1.0 mg/dL03/21/2025 2:46 AM [facility] ([facility])eGFR55.7(L)>60.0 mL/min/1.73m* 2:46 AM [facility] ([facility])Comment:[facility]???s estimated glomerular filtration rate (eGFR) will [...] TimeBloodVenous blood specimen / Unknown Venipuncture / Oycatfn5503/21/2025 2:09 AM EDT1 2:20 AM EDT Narrative Authorizing ProviderResult TypeResult StatusMesharona [facility]PG[facility] BLOOD ORDERABLES Final ResultPerforming OrganizationAddressCity/State/ZIP CodePhone Number [facility] ([facility]) [address] [place] [address] from Last 3 Months Insurance Advance Directives * Full Code (Latest Code Status on File) Date ActivatedDate DkbrgyzialxRgblsdwx24/7/2025 2:57 AM03/22/2025 4:36 PM Care Teams Team MemberRelationshipSpecialtyStart DateEnd Date Tomeka Rosado MD [address] [place] [phone] PCP - GeneralNurse Practitioner11/22/24
--- OUTSIDE RECORDS SUMMARY | 2025-04-12 09:00 | XMS_ITS | Clinical Summary ---
Author Organization [facility] Healthcare Address [address] [place] [address] Care Team Providers Care Insurance Examining Clerk Name Role Phone Peggy Gatica NP Unavailable [phone] Gerald Low MD Primary Care Provider [phone] Allergies Active AllergyReactionsCriticalityNoted DateCommentsAzithromycinUnknown 03/24/20189773Bxqwjsmteqhxt83/12/2023 Other Reaction(s): ?change in mental status ErythromycinGI intolerance,Other04/28/20237080XqrjcmwpawQojdn46/12/2023 Medications MedicationSigDispense QuantityRefillsLast FilledStart DateEnd DateStatus fluticasone (Flonase) 50 MCG/ACT nasal spray Administer 2 sprays into each nostril in the morning.Active tamsulosin (Flomax) 0.4 MG 24 hr capsule Take 0.4 mg by mouth DailyActive furosemide (Lasix) 20 MG tablet Indications:Primary hypertensionTake 1 tablet (20 mg) by mouth Daily 90 tablet ctive rosuvastatin (Crestor) 20 MG tablet Indications:Mixed hyperlipidemiaTake 1 tablet (20 mg) by mouth Daily04/12/2024 Active omeprazole (PriLOSEC) [address] capsule Indications:Gastroesophageal reflux disease without esophagitisTAKE 1 CAPSULE IN THE MORNING BEFORE A MEAL (DO NOT CRUSH OR CHEW) 90 capsule 5Active empagliflozin (Jardiance) 25 MG Indications:Stage 3a chronic kidney disease ([facility]),Type 2 diabetes mellitus with stage 3a chronic kidney disease, without long-term current use of insulin ([facility])Take 1 tablet (25 mg) by mouth Daily [...] arthropathy,Arthritis of left shoulder2 mLIJ Once PRN Ocmwmyadw53Ended methylPREDNISolone acetate (DEPO-Medrol) injection 40 mg Indications:Left rotator cuff tear arthropathy,Arthritis of left alnagntw93 mgIX Once PRN Kewiinezw44Ended Active Problems ProblemNoted DateDiagnosed DateEncounter for subsequent annual wellness visit (AWV) in Medicare fvsqgdy4701/09/2025 Assessment & Plan (01/09/2025 6:20 AM EDT): Reviewed Ht/Wt/BMI Recommend eye exam yearly Recommend dental exams twice a year Balance work/leisure activities Exercises is recommended most days of the week (appropriate as chronic conditions allow) Follow up yearly and prn Left ankle pcfhomlo24/28/5115Yxkqyudsipx24/01/2025 Assessment & Plan (01/09/2025 6:13 AM EDT): Noted at last office visit, was sent to [facility] ER via squad Bisoprolol dose was lowered from 10mg daily to 5mg daily Assessment & Plan (12/13/2024 3:10 PM EDT): No current sxs , at HR that he has, we discussed that despite asymptomatic we will send to xaycacvl504 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 Screening for prostate beyoql6010/10/2024History of tobacco abuse05/31/2024 Lgdmpexbgsr27/17/2024Frequent PVCs10/12/2023 Overview (10/12/2023): Last Assessment & Plan: F/U with Dr San Leukemoid bzyhtbdy01/29/2024 Assessment & Plan (10/12/2023 11:08 AM EDT): WBC of 19 k on labs drawn at [facility] - recheck Left adrenal mass08/11/2023 Assessment [...] to start using ASA. Patient scheduled for [facility] on 07/29/23 No prior hx of CAD Stage 3a chronic kidney ojhkxbb8207/15/2023 Assessment & Plan (01/09/2025 6:14 AM EDT): [...] & Plan: Frequent PVCs, bigemeny, NSVT Near qkhybck3007/10/2023 Overview (07/15/2023): Last Assessment & Plan: Recently admitted to [facility] for near syncope, bradycardia, abnormal stress [...] Plan (07/15/2023 2:41 PM EST): Scheduled for [facility] in July. Patient is currently [...] in sxs Primary malignant neuroendocrine neoplasm of fayqfjzx28/14/2023 Assessment & Plan (10/10/2024 6:16 AM EDT): [...] - repeat CT chest planned in 09/05. Eflwbn4202/24/2023bsolute aoaieo5502/24/2023llergic llwyfnxi18/12/2023Balance /12/2023Benign prostatic hyperplasia with lower urinary tract symptoms 02/24/2023 Assessment & Plan (10/10/2024 9:23 AM EDT): Currently taking tamsulosin Follows with urology Chronic toohxxgfw63/12/2023Type 2 diabetes mellitus with kidney complication, without long-term current use of khqverh1302/24/2023 Assessment & Plan (01/09/2025 6:14 AM EDT): [...] questions or concerns related to new medications. Bvaybiurerqh33/12/2023Diverticulosis of sigmoid colon02/24/2023 Assessment & Plan (11/28/2024 2:31 PM EDT): Augmentin BID for 10 days Check labs and xray Fu in 2 weeks Advised of s/s of need for ER Esophageal /12/2023astroesophageal reflux rvhdygk0302/24/2023 Assessment & Plan (10/10/2024 6:15 AM EDT): Recommendations: freq small meals, nothing to eat or drink at least 2 hours prior to bed, limit caffeine, alcohol, as well as spicy foods Meds to limit or avoid if possible: NSAIDS Elevate HOB if possible Current med: omeprazole Assessment & Plan (07/15/2023 2:45 PM EST): On omeprazole. C/w same. Fall02/24/2023Left rotator cuff tear qfifudtybct91/12/2023 Assessment & Plan (04/12/2024 10:55 AM EDT): [address] [place] [address] ortho told him he needed revision. Declined. [...] surgical options for weight loss. Other chronic pain3Pain in right knee02/24/2023ityriasis rosea 02/24/2023Slow transit tdmaxzgtbhcn23/12/2023Tubular adenoma of colon02/24/2023 Diabetic polyneuropathy associated with type 2 diabetes qhiuykoy09/12/2023 Assessment & Plan (10/10/2024 9:17 AM EDT): Freq foot checks proper fitting shoes, socks Primary wmughogljsbe35/12/2023 Assessment & Plan (01/09/2025 9:18 AM EDT): [...] BP. On Losartan, Bisoprolol. C/w same. Mixed tnqlkmgbcocuos29/12/2023 Assessment & Plan (01/09/2025 6:19 AM EDT): [...] Check Lipid Panel Continue current regimen. Neuroendocrine jykpltayw01/16/2021 Assessment & Plan (01/09/2025 6:19 AM EDT): Continue recommended monitoring of this Arthritis Resolved Problems ProblemNoted DateDiagnosed DateResolved DateURTI (acute upper respiratory infection)/06/2024Pneumonia of left lower lobe due to infectious saflytpp47/29/ Assessment & Plan (10/12/2023 11:06 AM EDT): Left lower lobe infiltrate on CXR, mild resp symptoms including cough. He presented to ED for fever. Will start patient on Doxycycline and treat for bacterial PNA. Encounter to establish care with new vknotx21 Assessment & Plan (07/15/2023 2:48 PM EST): New Patient, here to establish care. Reviewed medical, surgical and social hx. Reviewed available old records. Reviewed and updated medication list. New Patient for this practice. Was previously established with Dr Barajas but [facility]. Accelerated lhraeppwgopi71Morbid cziscbc59 Type 2 diabetes mellitus in patient with kxkdcil49 Encounters DateTypeDepartmentCare AtncRodwfbdpbmz58/25/2866Anajtg59/17/2025 1:50 PM EDT Ancillary [facility] [address] [place] [address] 03/31/2025 1:40 PM EDTOffice Visit [facility] [address] [place] [address] Jonathan Cowan DPM DJD (degenerative joint disease), ankle and foot, left (Primary Dx); Other specified disorders of synovium, left ankle and foot03/31/2025amb flowsheet [facility] [address] [place] [address] Jonathan Cowan DPM 03/29/2025 9:30 AM EDTOffice Visit [facility] [place] [phone] Fahad Sears PA Acute pain of left shoulder (Primary Dx); Left rotator cuff tear arthropathy; Arthritis of left edgrufbl41/15/2025amb [facility]sheet [facility] [place] [phone] Fahad Sears PA 03/29/20258785Cgmqbq36/10/7863Qysscc18/08/2025Travelfrom Last 3 Months Immunizations ImmunizationAdministration DatesNext DueInfluenza, High Dose Seasonal, Preservative Free03/09/2019,04/09/2018,05/18/2017Influenza, High-dose Seasonal, Quadrivalent, Preservative Free03/20/2023,03/27/2022,03/01/2021,02/24/2020 Influenza, seasonal, injectable, preservative free03/13/2016,03/28/2015 Influenza, trivalent, glunbuyoih31/22/2024Novel mggciwkcz-O2K9-25, preservative-free08/06/2009Pneumococcal Conjugate PCV 1306,05/21/2018 Pneumococcal Polysaccharide ISUD1714/05/2023,05/12/2006RSV, recombinant, protein subunit RSVpreF, adjuvant reconstitu, 120mcg/0.5mL, PF (Arexvy)05/24/2024TD (adult), 2 Lf tetanus toxoid, preservative free, fqcigfrx11/15/2019Tdap 10/27/2018,03/14/2011Zoster, live05/24/2016,05/15/2016 Family History Medical HistoryRelationNameCommentsCancerBrotherSamMeniere's diseaseBrotherSam multinodular goiterBrotherSamDiabetesFatherSamHearing lossFatherSamHeart disease FatherSamHypertensionFatherSamHeart diseaseMotherReginaHeart failureMotherRegina Breast ajkocvJdprngPleqbwgnDvpEqcRfdnneykUcqrOeeltyWwenqdqlArqlqzfLwdn4GrgouqWzq DeceasedMotherReginaDeceasedSisterSonBobAlivex2 Social History Tobacco UseTypesPacks/DayYears UsedDateSmoking Tobacco: IpczrzPkwnlswacn1280398 - 1983Passive Smoke Exposure: NeverSmokeless Tobacco: Never Tobacco Cessation:Counseling Given: Yes Alcohol UseStandard Drinks/WeekCommentsYes0 (1 standard drink = 0.6 oz pure alcohol)PLMPWHQGRGUO4567 Health LiteracyAnswerDate RecordedHow often do you need to have someone help you when you read instructions, pamphlets, or other written material from your doctor or pharmacy?Hgnxdy3107/06/2024Humiliation, Afraid, Rape, and Kick questionnaireAnswerDate RecordedWithin the [...] relatives?Once a week07/06/2024How often do you attend caodaism or buddhist services?Patient jdmbhxuj93/22/2025Do you belong to any clubs or organizations such as caodaism groups, unions, fraternal or athletic groups, or school groups?No07/06/2024How often do you attend meetings of the clubs or organizations you belong to?Never07/06/2024re you , , , , never , or living with a partner?Vbjunpw1507/06/2024UDIT-CAnswerDate RecordedQ1: How often do you have a [...] hard at all07/06/2024PHQ-2AnswerDate RecordedPatient Health Questionnaire-2 Score0 01/09/2025FinSouth[facility] - Occupational Stress QuestionnaireAnswerDate RecordedDo you feel stress - tense, restless, nervous, or anxious, or unable to sleep at night because yourmind is troubled all the time - these days?Only a fxxdbj2507/06/2024Exercise Vital SignAnswerDate Recorded On average, how many [...] were you homeless or living in a prison (including now)?No07/06/2024Sex and Gender InformationValueDate RecordedSex Assigned at BirthNot on fileLegal HodRiev4508/27/2022 7:35 PM EDTGender Identity Male08/27/2022 7:35 PM EDTSexual OrientationNot on file Last Filed Vital Signs Vital SignReadingTime TakenCommentsBlood Nizjuhaw828/8007 8:33 AM EDT Luwnu0206 8:33 AM WEMUmfqykbhouu79.9 ??C (98.5 ??F)01/09/2025 8:33 AM EDTRespiratory Bygb9724 1:48 PM EDTOxygen Mwcrxvlust50%01/09/2025 8:33 AM EDTInhaled Oxygen Concentration--Okgzzh700 kg (225 lb)03/31/2025 1:48 PM EDT Rmtemr736.8 cm (5' 10 )03/31/2025 1:48 PM EDTBody Mass Index32.281 1:48 PM EDT Plan of Treatment DateTypeDepartmentCare Team (Latest Contact Info)Rdvcitvaqdb24/31/2025 2:00 PM EDTOffice Visit [facility] [address] [place] [phone] Jonathan Cowan, TAYLOR [address] [address] Health MaintenanceDue DateLast DoneCommentsInfluenza Vaccine (#1)02/13/2025 04/05/2024, 03/20/2023, 03/27/2022, Additional history existsColonoscopy Xsyufomrppsh87/16/2021, 07/14/2014Colorectal Cancer ScreeningDiscontinued Pneumococcal Vaccine: 65+ SwubsJercwxysk09/12/2023, 11/22/2018, 05/21/2018, Additional history existsCT ColonographyDiscontinuedFIT-DNADiscontinuedFIT DiscontinuedFOBTDiscontinuedSigmoidoscopyDiscontinued Procedures Procedure NamePriorityDate/TimeAssociated DiagnosisCommentsXR ANKLE 3+ VIEWS ZNDVRmumoiw87/17/2025 1:49 PM EDT DJD (degenerative joint disease), ankle and foot, left ME ARTHROCENTESIS ASPIR&/INJ MAJOR JT/BURSA W/SHSgiwqae65/15/2025 9:58 AM EDT Left rotator cuff tear arthropathy Arthritis of left shoulder OULZXBBEADYDchswqg63/16/2021 12:00 PM EDT from Last 3 Months [...] TypeResult StatusNicholozzy Cowan DPMIMG XR PROCEDURESFinal Result * ME ARTHROCENTESIS ASPIR&/INJ MAJOR JT/BURSA W/US (03/29/2025 9:58 [...] neurovascular intact s/p injection. . ( Codes 19410) Procedure, treatment alternatives, risks and benefits explained, specific risks discussed. Consent was given by the patient. Patient was prepped and draped in the usual sterile fashion. Authorizing ProviderResult TypeResult StatusMattmely Sears [facility]/BEDSIDE ORDERABLESFinal Result * Colonoscopy (11/28/2020 12:00 PM EDT)Anatomical RegionLateralityModality EndoscopySpecimen (Source)Anatomical Location / LateralityCollection Method / VolumeCollection TimeReceived Time11/28/2020 12:00 PM EDT Narrative 11/28/2020 12:00 PM EDT PERFORMED AT [facility] LOCATION:[id number] See Scanned Results Procedure Note CONVERSION, GENERIC - 10/29/2022 PERFORMED AT [facility] LOCATION:[id number] See Scanned Results Authorizing ProviderResult TypeResult StatusRenea Barajas DOENDOSCOPY PROCEDURE ORDERABLESFinal Result from Last 3 Months or Most Recently Relevant to Health Maintenance Insurance Advance Directives NameRelationshipHealthcare Agent RelationshipCommunicationTina [facility] Health Care Agent* * * [email or web address] Care Teams Team MemberRelationshipSpecialtyStart DateEnd Date Gerald Low MD [address] [place] [address] PCP - GeneralFamily Dfnxqkba46/30/24 Peggy Gatica NP Nurse PractitionerFamily Wcqcwlid94/29/24
--- OUTSIDE RECORDS SUMMARY | 2025-04-12 09:00 | XMS_ITS | Encounter Summary ---
Author Organization [facility] Address [address] [place] [address] Care Team Providers Care Farm Helper Name Role Phone Peggy Gatica EXHIBIT ARTIST Unavailable [phone] Gerald Low MD Primary Care Provider Encounter Details DateTypeDepartmentCare Team (Latest Contact Info)Ajturaquyql46/15/2025Bamboo flowsheet [facility] [address] [place] [address] Fahad Sears PA [address] [place] [address] Social History Tobacco UseTypesPacks/DayYears UsedDateSmoking Tobacco: AeupodXboizpfxsh9541004 - 1983Passive Smoke Exposure: NeverSmokeless Tobacco: NeverAlcohol UseStandard Drinks/WeekCommentsYes0 (1 standard drink = 0.6 oz pure alcohol)[id number] Health LiteracyAnswerDate RecordedHow often do you need to have someone help you when you read instructions, pamphlets, or other written material from your doctor or pharmacy?Siqfvo1207/06/2024Humiliation, Afraid, Rape, and Kick questionnaireAnswerDate RecordedWithin the [...] relatives?Once a week07/06/2024How often do you attend temple or mormonism services?Patient xwelovjl98/22/2025Do you belong to any clubs or organizations such as temple groups, unions, [employer] or athletic roseline ups, or school groups?No07/06/2024How often do you attend meetings of the clubs or organizations you belong to?Never07/06/2024re you , , , , never , or living with a partner?Prgvyty2607/06/2024 AUDIT-CAnswerDate RecordedQ1: How often do you have [...] hard at all07/06/2024PHQ-2 AnswerDate RecordedPatient Health Questionnaire-2 Foiiz495Finintermountain healthcare [place] of Occupational [facility] - Occupational Stress QuestionnaireAnswerDate RecordedDo you feel stress - tense, restless, nervous, or anxious, or unable to sleep at night because yourmind is troubled all the time - these days?Only a xqbffx1407/06/2024Exercise Vital SignAnswerDate RecordedOn average, how many days [...] steady place to sleep or slept in [facility] (including now)?No02/18/2023Housing Stability Vital SignAnswerDate RecordedIn the last 12 months, was there a time when you were not able to pay the mortgage or rent on time?No07/06/2024In the past 12 months, how many times have you moved where you were living?t any time in the past 12 months, were you homeless or living in a snf (including now)?No07/06/2024Sex and Gender InformationValueDate RecordedSex Assigned at BirthNot on fileLegal UewNsnf5008/27/2022 7:35 PM EDTGender IjonjflrAccs76/15/2023 7:35 PM EDTSexual OrientationNot on filedocumented as of this encounter Plan of Treatment DateTypeDepartmentCare Team (Latest Contact Info)Sqwwfhtlmwa55/31/2025 2:00 PM EDTOffice Visit [facility] [address] [place] [phone] Jonathan Cowan DPM [address] [address] documented as of this encounter Visit Diagnoses Not on filedocumented in this encounter Additional Health Concerns AssessmentNoted TimePHQ-9 Depression Total Score: 8:34 AM EDT documented as of this encounter Care Teams Team MemberRelationshipSpecialtyStart DateEnd Date Gerald Low MD [address] [place] [address] PCP - GeneralFamily Pshwlfqo73/30/24 Peggy Gatica NP Nurse PractitionerFamily Ecqhepbq84/29/24documented as of this encounter
--- OUTSIDE RECORDS SUMMARY | 2025-04-12 09:00 | XMS_ITS | Clinical Summary ---
Author Organization [employer] Address [id number] [address] [place] [address] Care Team Providers Care Director Of Catering Sales Name Role Phone Renea Barajas DO Primary Care Provider Unavaila ble Allergies Active AllergyReactionsCriticalityNoted ZahnVrthhbhxMqqhfmsyihen63/10/2018 Ciprofloxacin Hcl06/24/20212345Euvacbqhqw29/10/2022 Medications MedicationSigDispense QuantityRefillsLast FilledStart DateEnd DateStatus allopurinoL [...] standard drink = 0.6 oz pure alcohol)sociallyChildcareAnswerDate OllojplbRujsrfpvrJtpksrf64/12/2019EmploymentAnswerDate RecordedEmploymentUnknown 11/24/2018Purpose - LifeAnswerDate RecordedPurpose and direction in lifeUnknown 07/26/2020ex and Gender InformationValueDate RecordedSex Assigned at BirthNot on fileLegal TzbAcrx0701/18/2015 11:30 AM EDTGender IdentityNot on fileSexual OrientationNot on file Last Filed Vital Signs Vital SignReadingTime TakenCommentsBlood Fxlqwutu677/62006/24/2021 1:16 PM EST Qgfmo709305/01/2015 12:00 AM ZUXGxqmmckgryo40.9 ??C (98.4 ??F)06/24/2021 1:16 PM ESTRespiratory Rate--Oxygen Saturation--Inhaled Oxygen Concentration--Weight 105.2 kg (232 lb)06/24/2021 1:16 PM LQGZvokeh457.8 cm (5' 10 )06/24/2021 1:16 PM ESTBody Mass Index33.29006/24/2021 1:16 PM EST Plan of Treatment Health MaintenanceDue DateLast DoneCommentsDepression Igvnwikua39/09/1961Tobacco Kanwfapvr41/09/1961bdominal Aortic Aneurysm (AAA) Kemyzh4303/23/2014Fall Risk Sfaocohma28/09/2014Zoster (Shingles) Vaccine (2 of 3), 05/15/20166810Gwejexoajsa23, 10/14/2010COVID-19 Vaccine ( season), 08/07/2020, 07/17/2020Influenza Vaccine 509/, 02/24/2020, 03/09/2019, Additional history existsDTaP,Tdap and Td Vaccines (3 - Td or Tdap), 03/14/2011 Medical Devices Not on file Procedures Procedure NamePriorityDate/TimeAssociated DiagnosisCommentsCOLONOSCOPYRoutine 11/28/2020 Rectal bleeding from Last 3 Months or Most Recently Relevant to Health Maintenance Results * Colonoscopy (11/28/2020) Narrative Authorizing ProviderResult TypeResult StatusMichael Iris DANIELS PROCEDURE ORDERABLESFinal ResultPerforming OrganizationAddressCity/State/ZIP CodePhone Number MANUALLY TRANSCRIBED RESULTS from Last 3 Months or Most Recently Relevant to Health Maintenance Insurance Care Teams Team MemberRelationshipSpecialtyStart DateEnd Date Renea Barajas DO [facility]/21/20
--- OUTSIDE RECORDS SUMMARY | 2025-04-12 09:00 | XMS_ITS | Encounter Summary ---
Author Organization [facility] Address [address] [place] [address] Care Team Providers Care Automobile Sales Representative Name Role Phone Peggy Gatica POT ANNEALER Unavailable [phone] Gerald Low MD Primary Care Provider [phone] Encounter Details DateTypeDepartmentCare Team (Latest Contact Info)Shwoudflrzh37/17/2025amboo flowsheet [facility] [address] [place] [address] Jonathan Cowan DPInna [address] [address] Social History Tobacco UseTypesPacks/DayYears UsedDateSmoking Tobacco: IyeilyBxhmcpeuwj0474214 - 1984Passive Smoke Exposure: NeverSmokeless Tobacco: NeverAlcohol UseStandard Drinks/WeekCommentsYes0 (1 standard drink = 0.6 oz pure alcohol)[id number] Health LiteracyAnswerDate RecordedHow often do you need to have someone help you when you read instructions, pamphlets, or other written material from your doctor or pharmacy?Bwlmsn7907/06/2024Humiliation, Afraid, Rape, and Kick questionnaireAnswerDate RecordedWithin the [...] week07/06/2024How often do you attend adventist or evangelical services?Patient sctuvrif85/22/2025Do you belong to any clubs or organizations such as adventist groups, unions, [employer] or athletic roseline ups, or school groups?No07/06/2024How often do you attend meetings of the clubs or organizations you belong to?Never07/06/2024re you , , , , never , or living with a partner?Tlpofqw7407/06/2024 AUDIT-CAnswerDate RecordedQ1: How often do you have [...] hard at all07/06/2024PHQ-2 AnswerDate RecordedPatient Health Questionnaire-2 Ozzxn691Finblue mountain hospital, inc. [place] of Occupational Health - Occupational Stress QuestionnaireAnswerDate RecordedDo you feel stress - tense, restless, nervous, or anxious, or unable to sleep at night because yourmind is troubled all the time - these days?Only a zazozv0607/06/2024Exercise Vital SignAnswerDate RecordedOn average, how many days [...] steady place to sleep or slept in [facility] (including now)?No02/18/2023Housing Stability Vital SignAnswerDate RecordedIn the last 12 months, was there a time when you were not able to pay the mortgage or rent on time?No07/06/2024In the past 12 months, how many times have you moved where you were living?t any time in the past 12 months, were you homeless or living in a long-term (including now)?No07/06/2024Sex and Gender InformationValueDate RecordedSex Assigned at BirthNot on fileLegal ZkfOwsf4208/27/2022 7:35 PM EDTGender RcwslhbzLluf96/15/2023 7:35 PM EDTSexual OrientationNot on filedocumented as of this encounter Plan of Treatment DateTypeDepartmentCare Team (Latest Contact Info)Vphyvwmemgn10/31/2025 2:00 PM EDTOffice Visit [facility] [address] [place] [address] Jonathan Cowan DPM [address] [address] documented as of this encounter Visit Diagnoses Not on filedocumented in this encounter Additional Health Concerns AssessmentNoted TimePHQ-9 Depression Total Score: 8:34 AM EDT documented as of this encounter Care Teams Team MemberRelationshipSpecialtyStart DateEnd Date Gerald Low MD [address] [place] [address] PCP - GeneralFamily Izsizhqw61/30/24 Peggy Gatica NP Nurse PractitionerFamily Okawfgtl97/29/24documented as of this encounter
--- OUTSIDE RECORDS SUMMARY | 2025-04-12 09:00 | XMS_ITS | Clinical Summary ---
Author Organization [facility] Address [address] [facility], [address] [place] [address] Care Team Providers Care Accounts Payable Administrator Name Role Phone Shaikh MARY Ayala Primary Care Provider [phone] Allergies Active AllergyReactionsCriticalityNoted DateCommentsCiprofloxacinOther (See Comments)11/24/2022 Other Reaction(s): ?change in mental status TIA ErythromycinOther (See Comments)04/28/20236288XgnyqkourfBwfam20/10/2022 Medications MedicationSigDispense QuantityRefillsLast FilledStart DateEnd DateStatus allopurinol [...] InformationValueDate RecordedSex Assigned at Not on fileLegal OqgJhbo2607/25/2012 2:44 PM ESTGender IdentityNot on fileSexual OrientationNot on file Last Filed Vital Signs Vital SignReadingTime TakenCommentsBlood Kpfudwaz563/6807 10:21 AM EDT Cngnt357012/20/2024 10:21 AM EDTTemperature--Respiratory Rate--Oxygen Saturation 94%12/20/2024 10:21 AM EDTInhaled Oxygen Concentration--Afwkdb799.4 kg (228 lb) 12/20/2024 10:21 AM WQULgngnm403.8 cm (5' 10 )09/07/2023 10:09 AM EDTBody Mass Index32.71009/07/2023 10:09 AM EDT Plan of Treatment DateTypeDepartmentCare Team (Latest Contact Info)Qzwvjvmbkez01/08/2026 8:30 AM EDTAppointment [place] [phone] 12/26/2025 9:30 AM EDTOffice Visit [facility] on [address] [address] Belen Camargo W, PAPER CLEANER - METAL BURNISHER [address] [place] [address] yearly with [facility] MaintenanceDue DateLast DoneCommentsDepression Screen 1961Hepatitis C lflqls5303/23/1967Shingles vaccine (2 of 3)07/19/2016 05/24/2016, 05/15/2016Annual Wellness Visit (Medicare)07/31/2023Flu vaccine (#1) , 03/20/2023, 03/27/2022, Additional history existsCOVID-19 Vaccine ( - season), 10/15/2021, 03/25/2021, Additional history existsDTaP/Tdap/Td vaccine (3 - Td or Tdap)10/27/2028 10/27/2018, 03/14/2011Pneumococcal 50+ years SjoxosgRehvqcxfh33/12/2023, 11/22/2018, 05/21/2018, Additional history existsRespiratory Syncytial Virus (RSV) or age 60 yrs+Ycxgftwke13/10/2024GFR test (Diabetes, CKD 3-4, OR last GFR 15-59)Atnhotqcxoha77/26/2025, 11/30/2023Hepatitis A vaccineAged OutNo longer eligible based [...] topic Procedures Procedure NamePriorityDate/TimeAssociated DiagnosisCommentsBUN & CREATININE Bquoavx3312/08/2024 7:50 AM EDT Bilateral renal cysts Adrenal adenoma, left from Last 3 Months or Most Recently Relevant to Health Maintenance Results * (ABNORMAL) BUN & Creatinine (12/08/2024 7:50 AM EDT)ComponentValueRef Range Test MethodAnalysis TimePerformed AtPathologist OobxfsmyoTJR06(H)9 - 20 mg/dL 12/08/2024 7:50 AM [facility]TW[facility] LABCreatinine1.070.66 - 1.25 mg/dL 12/08/2024 7:50 AM EDTPREMI[facility] LABEst, Glom Filt Rate72>60 mL/min/1.29s79412/08/2024 7:50 AM EDTWADAMS [facility] LABComment: GFR calculated using CKD-EPI (2020) formula. [...] LateralityCollection Method / Volume Collection TimeReceived TimeBlood Csnbcy4812/08/2024 7:50 AM EDT12/08/2024 10:38 AM EDT Narrative Authorizing ProviderResult TypeResult StatusKyliang BARNESTHE BELLEVUE HOSPITALEMISTRY ORDERABLESFinal ResultPerforming OrganizationAddressCity/State/ZIP CodePhone Number [place] [phone] from Last 3 Months or Most Recently Relevant to Health Maintenance Insurance Care Teams Team MemberRelationshipSpecialtyStart DateEnd Date Shaikh Ayala MD PCP - General07/31/23
--- OUTSIDE RECORDS SUMMARY | 2025-04-12 09:04 | XMS_ITS | CCD ---
Author Organization [facility] CliniSyid Care Team Providers Care Near [employer] Lecturer Name Role Phone PHYSICIAN, DEFAULT Admitting Unavailable PHYSICIAN, DEFAULT Attending Unavailable Vanessa Steele Unavailable [phone] Unavailable Unavailable CEDRIC, DR MENDEZ Primary [...] Attending Unavailable Vanessa Steele Primary Care Unavailabl iris Calle, Ms. Lawson Attending Unavailable Rostocil, Ms. Jorge Referring Unavailable Vanessa Steele Primary Care Unavailabl e Petek, Ms. Lawson Attending Unavailable Vanessa Steele Primary Care Unavailabl e Vanessa Steele Referring Unavailabl iris Knowles, Dr. Neftali Cormier Admitting Unavailable Benson, Dr. Neftali Cormier Attending Unavailable Dr. Neftali Knowles Admitting Unavailable Benson, Dr. Neftali Cormier Attending Unavailable Xavi Thompson Referring Unavailable Vanessa Steele Primary Care UnavailNeftali Crawford Attending Unavailable Dinary, Fazel Admitting Unavailable Dinary, Fazel Attending Unavailable Cedric, Dr. Vanessa Whitley Referring Unavai lable Stepan DO, Renea G Primary Care Provider Jamie HERNANDEZ, [facility] Primary Care Provider Unavailable Primary Care Provider UnavailMaribeth Celeste Attending Unavailable STEPAN, RENEA Referring Unavailable Neftali Knowles MD Unavailable Jamie HERNANDEZ, [facility] Primary Care Provider Jamie HERNANDEZ, [facility] Primary Care Provider Stepan DO, Renea G Unavailable Gatic[employer] BATCH PLANT OPERATOR, Miriam Unavailable Maranda HERNANDEZ [facility] Primary Care Provider Jamie HERNANDEZ, [facility] Primary Care Provider [facility] Primary Care Unavailable NEFTALI KNOWLES Attending Unavailable [facility] Care Unavailable DINARY, FAZEL Attending Unavailable CHOWDHRY, VIC Referring Unavailable [facility] Primary Care Unavailable DINARY, FAZEL Attending Unavailable DINARY, FAZEL Referring Unavailable [facility] Primary Care Unavailable NEFTALI KNOWLES Referring Unavailable [facility] Primary Care Unavailable DINARY, FAZEL Attending Unavailable DINARY, FAZEL Referring Unavailable [facility] Primary Care Unavailable [employer] BATCH PLANT OPERATOR, Miriam Unavailable Stepan DO, Renea G Unavailable Tomeka Rosado Attending Unavailable Tomeka Rosado Admitting Unavailable Jamie HERNANDEZ, [facility] Primary Care Provider GRACE JUSTICE Referring Unavailable [facility] Primary Care Unavailable GRACE JUSTICE Attending Unavailable GRACE JUSTICE Referring Unavailable JAMIE ALEXANDER Primary Care Unavailable Tomeka Mcgregor Attending Provider [phone] Tomeka Mcgregor Primary Care Provider [phone] Renea Barajas DO Primary Care Provider Unavaila Gerald Avendano MD Primary Care Provider Pj Isabel DO Attending Provider [phone] MIRIAM GATICA Attending Unavailabl e JENNIFFER SEARS Attending Unavailable AICHHOLZ, TOMEKA Attending Unavailable AICHHOLZ, TOMEKA Attending Unavailable JENNIFFER SEARS Attending Unavailable AICHHOLZ, TOMEKA Attending Unavailable MIRIAM GATICA Attending Unavailabl e SEARS, JENNIFFER Cho Attending Unavailable MIRIAM GATICA Referring Unavailabl e JENNIFFER SEARS Referring Unavailable AICHHOLAlan, TOMEKA Attending Unavailable JENNIFFER SEARS Attending Unavailable JONATHAN PETTY Attending Unavailable AICHHOLZ, TOMEKA Referring Unavailable BROWNJONATHAN Referring Unavailable ROSENDO SANCHEZ Attending Unavailable PIRKL, LEE ANN Referring Unavailable HORANI, BELEN Referring Unavailable PIRKL, LEE ANN Referring Unavailable HORANI, BELEN Referring Unavailable ANTONIANOE Myers Attending Unavailable ANTONIANOE Myers Attending Unavailable MASSOUH, RAFIK Referring Unavailable HORANI, BELEN Admitting Unavailable HORANI, BELEN Attending Unavailable Allergies Allergy ClassificationReported Allergen(s)Allergy TypeDate of OnsetReaction(s) FacilityAngiotensin Converting Enzyme (GODWIN) Inhibitors (4 sources)Lisinopril; Translations: [Lisinopril TABS]Drug [id number] [facility] Work Phone: Macrolides (antibiotic) (1 source)ErythromycinDrug Mlncosg65-20-9217Rhtir (See Comments)WYLUIS DANIEL Work Phone: Quinolones (antibiotic) (4 sources)Ciprofloxacin; Translations: [ciprofloxacin]Drug Dijnpqq53-61-3373 Other (See Comments)[facility] (20 sources)Ciprofloxacin; Translations: [ciprofloxacin]Drug Fvuhzka78-50-3019 Unknown, Other, Other (See Comments)[facility] (20 sources)Lisinopril; Translations: [Lisinopril TABS]Drug Ipaodri92-82-1410 Unknown, HfwsqTS-Hwbxtijsiyjslexm-Yvaxzdzh SJW 450 DO Work Phone: (6 sources)Amino Acids; Translations: [LISINOPRIL]Drug Qdfkusf85-25-7375BydxtEus [facility] (1 source)CiprofloxacinDrug [facility] (1 source)ErythromycinDrug AllergyMain [facility] Center Repository (20 sources)Erythromycin; Translations: [ERYTHROMYCIN]Drug Qxzeuyc63-26-4990 Unknown, GI bleeding, Other (See Comments), GI intolerance, OtherUnSouthwest [facility] Center Work Phone: (20 sources)Azithromycin; Translations: [AZITHROMYCIN]Drug Oukjild29-87-6587 UnknownNO[facility] (20 sources)LisinoprilAllergy to bhehmysza20-20-6074HsqtzUTTG Healthcare Medications Current Medications MedicationDrug Class(es)DatesSig (Normalized)Sig (Original)allopurinol 300 mg oral tablet (20 sources)Xanthine Oxidase InhibitorStart: 09-17-2020 End: 65-74-3774neee 1 tablet by mouth once dailyallopurinol (Zyloprim) 300 MG tablet Indications: Gout, unspecified cause, unspecified chronicity, unspecified site Take 1 tablet (300 mg) by mouth Daily 90 tablet 1 11/03/2024 Active Allopurinol 300 MG Oral Tablet Quantity: 0 Refills: 0 Ordered: 08-Jan-2021 DO ActiveamLODIPine 10 mg oral tablet (20 sources)Dihydropyridine Calcium Channel BlockerStart: 09-17-2020 End: 92-81-3098vafb 1 tablet by mouth once dailyamLODIPine (NORVASC) 10 MG tablet Take 1 tablet by mouth daily 0 09/17/2020 Active End: 68-62-3550xtct 5 mg by mouth every twenty-four hours as neededamLODIPine (Norvasc) 10 MG tablet Take 5 mg by mouth Daily as needed 01/09/2025 Discontinued (Therapy completed)amLODIPine Besylate 10 MG Oral Tablet Quantity: 0 Refills: 0 Ordered: 08-Jan-2021 DO Activeamoxicillin 875 mg oral tablet (1 source)Penicillin-class AntibacterialStart: 80-60-4424jfjs 1 tablet by mouth every twelve hoursamoxicillin 875 mg / clavulanate 125 mg oral tablet (19 sources)Penicillin-class AntibacterialStart: 11-28-2024 End: 53-36-4035dqwg 1 tablet by mouth in the morningamoxicillin-clavulanate (Augmentin) 875-125 MG tablet Indications: Diverticulitis Take 1 tablet (875 mg) by mouth in the morning and 1 tablet (875 mg) before bedtime. Do all this for 10 days. 20 tablet 11/28/2024 12/08/2024 ActiveStart: 59-39-9806xvnr 1 tablet by mouth every twelve hoursAmoxicillin-Pot Clavulanate 875-125 MG Oral Tablet TAKE 1 TABLET EVERY 12 HOURS UNTIL GONE. Quantity: 10 Refills: 0 Ordered: 23-Jan-2021 Irwin Batista MD Start : 23-Jan-2021 Activeaspirin 81 mg oral tablet (20 sources)Platelet Aggregation Inhibitor, Nonsteroidal Anti-inflammatory Drug Start: 60-08-5997jfqj 1 tablet by mouth once dailyAspirin 81 mg tablet Active 81 MG PO Daily March 25, 2025 12:00am Complies with drug therapyStart: 07-27-2023 End: 39-63-4828wqxs 1 tablet by mouth once dailyaspirin 81 MG chewable tablet Take 1 tablet by mouth daily 07/27/2023 Activetake 1 tablet by mouth once daily aspirin 81 MG EC tablet Take 81 mg by mouth Daily Activebisoprolol fumarate 5 mg oral tablet (20 sources)beta-Adrenergic BlockerStart: 01-03-2025 End: 55-25-7676otpd 1 tablet by mouth once dailybisoprolol (Zebeta) 5 MG tablet Take 5 mg by mouth Daily 01/03/2025 ActiveStart: 04-02-2024 End: 67-61-5164lazzfubvqr (Zebeta) 5 MG tablet 04/02/2024 04/12/2024 Discontinued (Duplicate order)Start: 07-10-2023 End: 12-31-2406elauudhlfc (Zebeta) 10 MG tablet Indications: Primary hypertension [...] (2 sources)Sodium-Glucose Cotransporter 2 InhibitorStart: 07-20-2023 End: 62-93-8291nucu 1 tablet by mouth in the morningFarxiga 10 MG Indications: Stage 3a chronic kidney disease (HCC) ([facility]) Take 1 tablet (10 mg) bymouth in the morning. 90 tablet 0 07/20/2023 07/30/2023 Discontinued (Cost of medication)empagliflozin 25 mg oral tablet (20 sources)Sodium-Glucose Cotransporter 2 InhibitorStart: 07-30-2023 End: 70-43-0073nrnw 1 tablet by mouth once dailyempagliflozin (Jardiance) 25 MG Indications: Stage 3a chronic kidney disease ([facility]-HCC) , Type 2 diabetes mellitus with stage 3a chronic kidney disease, without long-term current use of insulin ([facility]) Take 1 tablet (25 mg) by mouth Daily 90 tablet 1 08/23/2024 Active fluticasone propionate 0.05 mg/actuat metered dose nasal spray (20 sources)CorticosteroidStart: 03-10-2025 End: 17-44-3631hlow 1 spray(s) nasal route once dailyStart: 09-17-2020 [...] oral tablet (20 sources)Loop DiureticStart: 10-07-2020 End: 01-54-7382ixij 1 tablet by mouth once dailyfurosemide (Lasix) 20 MG tablet Indications: Primary hypertension Take 1 tablet (20 mg) by mouth Daily 90 tablet 1 04/12/2024 ActiveFurosemide 20 MG Oral Tablet Quantity: 0 Refills: 0 Ordered: 08-Jan-2021 DO Activeglimepiride 4 mg oral tablet (20 sources)SulfonylureaStart: 10-07-2020 End: 11-97-1744hrov 1 tablet by mouth before mealtimeglimepiride (Amaryl) [...] 25 mg oral tablet (2 sources)Arteriolar VasodilatorStart: 92-46-7270soum 2 tablets by mouth at bedtimehydrALAZINE (APRESOLINE) 25 MG tablet Take 2 tablets by mouth in the morning and at bedtime 0 08/20/2023 Activeomeprazole 40 mg delayed release oral capsule (20 sources)Proton Pump InhibitorStart: 07-11-2024 End: 71-58-6364mnbjcfsfnx (PriLOSEC) [address] capsule Indications: Gastroesophageal reflux disease without esophagitis TAKE 1 CAPSULE IN THE MORNING BEFORE A MEAL (DO NOT CRUSH OR CHEW) 90 capsule 3 07/11/2024 Active Start: 01-23-2021 End: 13-93-3671pdjm 1 capsule by mouth twice dailyomeprazole (PriLOSEC) [address] capsule Take 1 capsule (40 mg) by mouth 2 times a day. 01/23/2021 ActiveStart: 14-65-5203qkan 1 capsule by mouth once daily before breakfastomeprazole (PRILOSEC) 40 MG delayed release capsule Take 1 capsule by mouth every morning (before breakfast) 0 11/01/2020 ActiveOmeprazole 10 MG Oral Capsule Delayed Release Quantity: 0 Refills: 0 Ordered: 08-Jan-2021 DO Activepantoprazole 40 mg delayed release oral tablet (15 sources)Proton Pump InhibitorStart: 10-07-2023 End: 89-21-1763jser 1 tablet by mouth twice dailypantoprazole (ProtoNix) 40 mg EC tablet Indications: Primary malignant neuroendocrine neoplasm of duodenum (Multi) Take 1 tablet (40 mg) by mouth 2 times a day. Do not crush, chew, or split. 120 tablet 2 11/15/2023 Activerosuvastatin calcium 20 mg oral tablet (20 sources)HMG-CoA Reductase InhibitorStart: 04-12-2024 End: 78-77-3359ssrn 1 tablet by mouth once dailyrosuvastatin (Crestor) 20 MG tablet Indications: Mixed hyperlipidemia Take 1 tablet (20 mg) by mouth Daily 04/12/2024 04/12/2025 ActiveStart: 12-10-2022 End: 33-48-1134prca 1 tablet by mouth in the morningrosuvastatin (Crestor) 10 MG tablet Indications: Mixed hyperlipidemia (CMS/HCC) Take 1 tablet (10 mg) by mouth in the morning. 90 tablet 3 12/10/2022 04/12/2024 Discontinued (Discontinued by another clinician)Start: 09-17-2020 End: 43-32-6632aeww 2 tablets by mouth once dailyrosuvastatin (CRESTOR) 10 MG tablet Take 2 tablets by mouth daily 09/17/2020 ActiveRosuvastatin Calcium 10 MG Oral Tablet Quantity: 0 Refills: 0 Ordered: 08-Jan-2021 DO Activesacubitril 24 mg / valsartan 26 mg oral tablet (6 sources)Angiotensin 2 Receptor BlockerStart: 51-03-6352zjxn 1 tablet by mouth twice dailySacubitril-Valsartan (Entresto) 24-26 mg tablet Active 1 TAB PO Twice daily March 29, 2025 12:00am Complies with drug therapytake 1 tablet by mouth in the morningsacubitril-valsartan (Entresto) 24-26 MG tablet Take 1 tablet by mouth in the morning and 1 tablet before bedtime. Activespironolactone 25 mg oral tablet (6 sources)Aldosterone AntagonistStart: 08-73-7666ypcm 1 tablet by mouth once dailySpironolactone (Aldactone) 25 mg tablet Active 25 MG PO Daily March 25, 2025 12:00am Complies with drug therapytamsulosin hydrochloride 0.4 mg oral capsule (20 sources)alpha-Adrenergic BlockerStart: 80-50-4454iamzlwupuf HCl (TAMSULOSIN ORAL) Take by mouth. Active Completed/Discontinued Medications MedicationDrug Class(es)DatesSig (Normalized)Sig (Original)5 ml bupivacaine hydrochloride 5 mg/ml injection (14 sources)Amide Local AnestheticStart: 03-29-2025 End: 55-29-0293uucqqmbgpak PF (Marcaine) 0.5 % injection 2 mLStart: 03-29-2025 End: mL, Injection, Once PRN Procedure, Starting on Thu03/29/25 at 0958, For 1 doseStart: 11-30-2024 End: 47-78-8546lcbqagfrsnx PF (Marcaine) 0.5 % injection 2 mLStart: 11-30-2024 End: mL, Injection, Once PRN Procedure, Starting on Thu11/30/24 at 1018, For 1 doseStart: 08-12-2024 End: 55-32-2821pkllcxodvhx PF (Marcaine) 0.5 % injection 1 mLStart: 08-12-2024 End: mL, Injection, Once PRN Procedure, Starting on Thu08/12/24 at 0917, For 1 doseStart: 04-13-2024 End: 22-95-9552auziwktnwso PF (Marcaine) 0.5 % injection 1 mLStart: 04-13-2024 End: mL, Injection, Once PRN Procedure, Starting on Thu04/13/24 at 0947, For 1 dose10 ml EPINEPHrine 0.1 mg/ml prefilled syringe (2 sources)alpha-Adrenergic Agonist, beta-Adrenergic Agonist, Catecholamine Start: 10-07-2023 End: 70-23-6229Kx needed, Starting on Thu10/07/23 at 0758, Intraprocedure Fluticasone Propionate CREA (13 sources)Fluticasone Propionate CREA Quantity: 0 Refills: 0 Ordered: 08-Jan-2021 DO Activegadobenate dimeglumine (MULTIHANCE) injection 16 mL (1 source)Start: 12-13-2024 End: 65-63-8147tadm 1 dose intravenously once16 mL, IntraVENous, IMG ONCE PRN, 1 dose, Starting on Thu12/13/24 at 1326, Until Thu12/13/24 at 1015,Othergadobenate dimeglumine (MULTIHANCE) injection 16.1 mL (1 source)Start: 12-01-2023 End: 31-58-9629pnspmnodde dimeglumine (MULTIHANCE) injection 16.1 mLiohexol (OMNIPaque) 350 mg iodine/mL solution 50 mL (1 source)Start: 12-31-2023 End: mL, intravenous, Once in imaging, Starting on Thu12/31/23 at 0738, For 1 doseiohexol (OMNIPaque) 350 mg iodine/mL solution 75 mL (2 sources)Start: 05-26-2023 End: 81-79-6911cuwucsj (OMNIPaque) 350 mg iodine/mL solution 75 mLlosartan potassium 100 mg oral tablet (20 sources)Angiotensin 2 Receptor BlockerStart: 09-17-2020 End: 01-67-8217qvtc 1 tablet by mouth once dailyLosartan 100 mg tablet Discontinued 100 MG PO Daily 90 February 14, 2025 1:29pm February 15, 2025 6:01pmLosartan Potassium 100 MG Oral Tablet Quantity: 0 Refills: 0 Ordered: 08-Jan-2021 DO Active1 ml methylPREDNISolone acetate 40 mg/ml injection (14 sources)CorticosteroidStart: 03-29-2025 End: 65-84-7361wzpyjnUTJMUMZmyrpc acetate (DEPO-Medrol) injection 40 mgStart: 03-29-2025 End: 94-98-832353 mg, Intra-articular, Once PRN Procedure, Starting on Thu03/29/25 at 0958, For 1 doseStart: 11-30-2024 End: 55-07-4774linjhlYZHWLTNgjjdw acetate (DEPO-Medrol) injection 40 mgStart: 11-30-2024 End: 76-23-433771 mg, Intra-articular, Once PRN Procedure, Starting on Thu11/30/24 at 1018, For 1 doseStart: 08-12-2024 End: 23-42-2905lejasoWDVXKGVazhub Acetate (DEPO-Medrol) injection 40 mgStart: 08-12-2024 End: 73-07-087261 mg, Intra-articular, Once PRN Procedure, Starting on Thu08/12/24 at 0917, For 1 doseStart: 04-13-2024 End: 12-88-0987pixpjsLTMLRQPqmypf acetate (DEPO-Medrol) injection 40 mgStart: 04-13-2024 End: 88-27-475430 mg, Intra-articular, Once PRN Procedure, Starting on Thu04/13/24 at 0947, For 1 dosepioglitazone 30 mg oral tablet (20 sources)Peroxisome Proliferator Receptor alpha Agonist, Peroxisome Proliferator Receptor gamma Agonist, Thiazolidinedione End: 56-10-1329vqwj 1 tablet by mouth once dailypioglitazone (Actos) 30 mg tablet Take 1 tablet (30 mg) by mouth once daily. 10/07/2023 Discontinued (Therapy completed)Pioglitazone HCl - 30 MG Oral Tablet Quantity: 0 Refills: 0 Ordered: 08-Jan-2021 DO Activesimethicone 66.7 mg/ml oral suspension (6 sources)Start: 06-30-2024 End: 05-86-4352Jn needed, Starting on Thu06/30/24 at 0954, IntraprocedureStart: 12-29-2023 End: 04-46-2650Oe needed, Starting on Thu12/29/23 at 1330, IntraprocedureStart: 06-10-2023 End: 36-20-7616krkmlaeggxi (Mylicon) dropssucralfate 1000 mg oral tablet (20 sources)Aluminum ComplexStart: 10-07-2023 End: 10-20-2368cryq 1 tablet by mouth four times daily 1 hour(s) before bedtime sucralfate (Carafate) 1 gram tablet Indications: Primary malignant neuroendocrine neoplasm of duodenum (Multi) TAKE 1 TABLET (1 G) BY MOUTH 4 TIMES A DAY. TAKE 1 HOUR BEFORE MEALS AND AT BEDTIME 360 tablet 1 10/29/2023 06/30/2024 Discontinued (Therapy completed)Start: 79-06-1588lywk 1 tablet by mouth four times daily at bedtimeSucralfate 1 GM Oral Tablet TAKE 1 TABLET 4 TIMES DAILY, BEFORE MEALS AND AT BEDTIME. Quantity: 360Refills: 2 Ordered: 01-May-2021 Irwin Batista MD Start : 23-Jan-2021 Active Problems Active Problems Problem ClassificationProblemDateDocumented DateEpisodic/ChronicBiliary tract disease (3 sources)Acute cholecystitis; Translations: [ACUTE CHOLECYSTITIS]Onset: 81-14-1926UzqgpootSsieti of other GI organs; peritoneum (1 source)Malignant carcinoid tumor of the duodenum; 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]Onset: 93-44-3248AsfynklXppdkue dysrhythmias (20 sources)Nonsustained ventricular tachycardia ; Translations: [NSVT (nonsustained ventricular tachycardia)]Onset: 217982-58-6010VhvxcaaQqqdibi dysrhythmias (20 sources)Bradycardia; Translations: [Bradycardia, unspecified]Onset: 685699-75-9579CjhhyuelGsnkqam kidney disease (20 sources)Chronic kidney disease stage 3A ; Translations: [Stage 3a chronic kidney disease (HCC)]Onset: 800170-62-0318BoaufjnUalhpvwpfy associated with dizziness or vertigo (2 sources)Dizziness; Translations: [Dizziness]Onset: 94-08-5758Cstbasek Congestive heart failure; nonhypertensive (2 sources)Chronic systolic heart failure; Translations: [Chronic systolic (congestive) heart failure]38-30-5285QfuicnmMxkgmbdd mellitus with complications (20 sources)Polyneuropathy due to type 2 diabetes mellitus; Translations: [Type 2 diabetes mellitus with diabetic polyneuropathy]Onset: 06-24-2021 Resolved: 032935-23-6184JqimofvQmavjjza of white blood cells (20 sources)Leukemoid reaction; Translations: [Leukemoid reaction]Onset: 378706-28-1112YavxmguBtlfedxeq of lipid metabolism (20 sources)Hyperlipidemia, unspecified; Translations: [Mixed hyperlipidemia] Onset: 895737-27-1968DqimzenTzfeeztrjikvnr and diverticulitis (20 sources)Diverticulosis of large intestine without perforation or abscess without bleeding; Translations: [Diverticulosis of sigmoid colon]Onset: 730512-49-3949GyjmndbRqwfwwcmnb disorders (20 sources)Gastro-esophageal reflux disease without esophagitis; Translations: [Gastroesophageal reflux disease]Onset: 609245-07-6926SwdyluvFhxstavfn hypertension (20 sources)Essential (primary) hypertension; Translations: [Essential hypertension]Onset: 12-12-2020 Resolved: 793847-63-9060YtjxxjtZiiyawbxj and duodenitis (1 source)Unspecified chronic gastritis without bleeding; Translations: [Unspecified chronic gastritis without bleeding]Onset: 74-72-4384ErnjzsqQdmv and other crystal arthropathies (20 sources)Gout; Translations: [Gout, unspecified]Onset: ChronicHyperplasia of prostate (20 sources)Benign prostatic hypertrophy with outflow obstruction; Translations: [Hypertrophy (benign) of prostate with urinary obstruction and other lower urinary tract symptoms (LUTS)]Onset: 224146-85-7581AjfzulfUhcgpqyhb neoplasm without specification of site (20 sources)Primary malignant neuroendocrine neoplasm of duodenum; 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]Onset: 51-25-9631Rwzziww Osteoarthritis (20 sources)Arthritis; Translations: [Unspecified osteoarthritis, unspecified site]88-11-5044BhcwwkhTmzju aftercare (1 source)Other buttermaker (current) drug therapy; Translations: [OTH BEARING INSPECTOR CURRENT DRUG THERAPY]Onset: 08-57-4718YjykrirnPzitq and unspecified benign neoplasm (1 source)Benign carcinoid tumor of the duodenum; Translations: [Benign carcinoid tumor of the duodenum]Onset: 31-78-2541JoslpnljSgrft and unspecified benign neoplasm (5 sources)Adenoma of left adrenal gland; Translations: [Benign neoplasm of left adrenal gland]93-24-5268ZjhrjvhiAoyrc and unspecified benign neoplasm (1 source)Benign neoplasm of left adrenal gland; Translations: [Benign neoplasm of left adrenal gland]Onset: 73-44-7280QbdpstirLrxqn and unspecified benign neoplasm (2 sources)Adrenal adenoma; Translations: [Benign neoplasm of unspecified adrenal gland]70-16-4673IpeylosaRiivx connective tissue disease (2 sources)Disorder of musculoskeletal system; Translations: [Other specified disorders of synovium, left ankle and foot]32-90-8858YcouoyaeDdrnl diseases of kidney and ureters (1 source)Cyst of kidney, acquired; Translations: [Cyst of kidney, acquired] Onset: 12-72-2091FzmlonwgObpbq disorders of stomach and duodenum (1 source)Other diseases of stomach and duodenum; Translations: [Other diseases of stomach and duodenum]Onset: 88-86-7275ThmpdtwvWsrsy endocrine disorders (20 sources)Hypoglycemia; Translations: [Hypoglycemia, unspecified]Onset: 024736-59-2942XjhltwvOexzv endocrine disorders (20 sources)Mass of left adrenal gland; Translations: [Other specified disorders of adrenal gland]Onset: 358736-22-0660RoqppceVpibk inflammatory condition of skin (20 sources)Pityriasis rosea; Translations: [Pityriasis rosea]Onset: 02-24-2023 86-51-7060QlidviwTcnit liver diseases (2 sources)Liver disease, unspecified; Translations: [Liver disease, unspecified]Onset: 37-02-0911TcrvrsnYwegk liver diseases (1 source)Abnormal levels of other serum enzymes; Translations: [ABNORMAL LEVELS OTHER SERUM ENZYMES]Onset: 61-14-3999NsekpcpoIobrw nervous system disorders (20 sources)Chronic pain; Translations: [Other chronic pain]Onset: 02-24-2023 11-53-8991VwcdkzbWnodo non-traumatic joint disorders (7 sources)Pain in left shoulder; Translations: [Pain in joint, shoulder region] 47-30-6395ZtqvmajlRkcen non-traumatic joint disorders (17 sources)Swollen ankle region; Translations: [Effusion, left ankle]Onset: 393029-93-2297RlgozofhXxvvq nutritional; endocrine; and metabolic disorders (20 sources)Body mass index 30+ - obesity; Translations: [Obesity, unspecified] Onset: 285066-81-9650QlbzyxxDmico nutritional; endocrine; and metabolic disorders (20 sources)Obesity; Translations: [Class 1 obesity with serious comorbidity in adult]Onset: 145470-23-2862UiqshkdCejhi nutritional; endocrine; and metabolic disorders (6 sources)Obesity caused by energy imbalance; Translations: [Class 1 obesity due to excess calories with serious comorbidity in adult, unspecified BMI] 60-93-4668YwenrggBkhus screening for suspected conditions (not mental disorders or infectious disease) (20 sources)Patient encounter status; Translations: [Screening for malignant neoplasms of prostate]Onset: 06-12-2021 Resolved: 720321-69-7577MsgcbgxqPhojo upper respiratory disease (20 sources)Allergic rhinitis; Translations: [Allergic rhinitis, unspecified] Onset: 150210-89-4314KwxmghnGwnxg upper respiratory infections (20 sources)Chronic sinusitis; Translations: [Chronic sinusitis, unspecified] Onset: 574494-66-3004IiwwgsvDiuuqwrj codes; unclassified (20 sources)Hypersomnia; Translations: [Hypersomnia, unspecified]Onset: 482270-02-3029DyysikiFuuazsmu codes; unclassified (1 source)Personal history of other specified conditions; Translations: [PERSONAL HISTORY OTH SPEC CONDITION]Onset: 33-99-0768HbqkwqbiVogxymen codes; unclassified (2 sources)Edema; Translations: [Edema, unspecified]91-72-4940ZfcqulabMemuuupvaz arthritis and related disease (1 source)Rheumatoid arthritis, unspecified; Translations: [Rheumatoid arthritis, unspecified]Onset: 84-93-4592NzruapsJlktiascls (except in labor) (1 source)Other Gram-negative sepsis; Translations: [OTHER GRAM-NEGATIVE SEPSIS] Onset: 65-54-6600HpxpryfjEurlapfolejw (1 source)CONTACT W/AND (SUSP) EXPOS COVID-19; Translations: [CONTACT W/AND (SUSP) EXPOS COVID-19]Onset: 61-13-6560Fvqdvrifyqna (1 source)Gastric intestinal metaplasia, unspecified; Translations: [Gastric intestinal metaplasia, unspecified]Onset: 44-39-7428Ikcensillsnz (2 sources)Chronic pain of right dryv67-85-5159Jfzryqhxmitw (2 sources)M25.472 - Effusion, left ankleUnclassified (2 sources)Arthritis of left apenkgsa71-38-6976Ibroocilufyb (2 sources)NSVTOnset: 31-94-0129Lnokfofuimel (1 source)Other ventricular tachycardia; Translations: [Other ventricular tachycardia]Onset: 07-13-2023 Past or Other Problems Problem ClassificationProblemDateDocumented DateEpisodic/ChronicAbdominal pain (20 sources)Right upper quadrant pain; Translations: [Unspecified abdominal pain]Onset: 78-64-2482YaqypurjZwzdbpynvamuxs/social admission (20 sources)First encounter by subject; Translations: [Persons encountering health services in other specified circumstances]Onset: 07-15-2023 Resolved: 719618-35-3805CvlwoircKeuyqu; other and unspecified primary (1 source)Personal history of malignant carcinoid tumor of small intestine; Translations: [Personal history of malignant carcinoid tumor of sm int]Onset: 16-50-1545JkquhgwwCcsentfgqx and other anemia (1 source)Anemia, unspecified; Translations: [Anemia, unspecified]Onset: 45-34-6824BhusubwhVxepkznbde and other anemia (20 sources)Anemia; Translations: [Anemia, unspecified]Onset: 02-24-2023 07-33-6977RznntonjWhtsxirf mellitus without complication (14 sources)Type 2 diabetes mellitus without complications; Translations: [Type 2 diabetes mellitus]Onset: 12-12-2020 Resolved: 399170-66-6711QhdjsnuF Codes: Fall (20 sources)Fall; Translations: [Unspecified fall, initial encounter]Onset: 584939-69-1476DvkmwmyxKnprqskojibnsyqe hemorrhage (1 source)Hemorrhage of anus and rectum; Translations: [HEMORRHAGE OF ANUS AND RECTUM]Onset: 48-29-0914PzmyhttiKske disorders (9 sources)Mood disordersOnset: Other aftercare (2 sources)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; Translations: [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 USE 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 HYPOGLYCEMIC DX]Onset: 33-60-3759AmzsosraTexxp aftercare (2 sources)Encounter for follow-up examination after completed treatment for malignant neoplasm; Translations:[Encntr for follow-up exam after trtmt for malignant neoplasm]Onset: 73-03-6331YvbnyravJvdul and unspecified benign neoplasm (1 source)Benign neoplasm of ascending colon; Translations: [BENIGN NEOPLASM OF ASCENDING COLON]Onset: 88-72-6605RfdfpwdqTyxci and unspecified benign neoplasm (1 source)Polyp of colon; Translations: [POLYP OF COLON]Onset: 12-12-2020 EpisodicOther and unspecified benign neoplasm (1 source)Polyp of stomach and duodenum; Translations: [Polyp of stomach and duodenum]Onset: 21-29-0488RvdqzqjtRbxrw and unspecified benign neoplasm (20 sources)Tubular adenoma of colon; Translations: [Benign neoplasm of colon, unspecified]Onset: 014458-81-8761XsiatwidHrusg connective tissue disease (20 sources)Rotator cuff arthropathy of left shoulder; Translations: [Unspecified rotator cuff tear or rupture of left shoulder, not specified as traumatic]Onset: 902691-90-9184RwlqcimsNryxu diseases of kidney and ureters (20 sources)Cyst of kidney; Translations: [Cyst of kidney, acquired]Onset: 925358-05-3819FtlbymgtOgvfm gastrointestinal disorders (4 sources)Dysphagia, unspecified; Translations: [DYSPHAGIA UNSPECIFIED]Onset: 69-09-9327TiysuxxsIszad gastrointestinal disorders (20 sources)Esophageal dysphagia; Translations: [Other dysphagia]Onset: 463695-94-5484JqtlfywoVwmun gastrointestinal disorders (20 sources)Slow transit constipation; Translations: [Slow transit constipation] Onset: 405878-72-0534JvxyqgvwRrfmm lower respiratory disease (20 sources)Nodule of lung; Translations: [Solitary pulmonary nodule]Onset: 333188-70-9332BhoifyflChkmt nervous system disorders (20 sources)Impairment of balance; Translations: [Other abnormalities of gait and mobility]Onset: 104746-53-6901DylntcdzOhdjk non-traumatic joint disorders (20 sources)Pain in right knee; Translations: [Pain in joint, lower leg]Onset: 597397-99-3589BtksotmhTgntp nutritional; endocrine; and metabolic disorders (20 sources)Morbid obesity; Translations: [Morbid (severe) obesity due to excess calories]Onset: 11-24-2022 Resolved: 697032-79-5378HvsiikhBmqbb upper respiratory infections (20 sources)Acute upper respiratory infection; Translations: [Acute upper respiratory infection, unspecified]Onset: 11-16-2023 Resolved: 007242-26-2478JwakajgaSctsxsfvc (except that caused by tuberculosis or sexually transmitted disease) (20 sources)Left lower zone pneumonia; Translations: [Pneumonia, unspecified organism]Onset: 10-12-2023 Resolved: 990652-49-5127PfkhtnypFebwahlwh and history of mental health and substance abuse codes (20 sources)Personal history of nicotine dependence; Translations: [Tobacco use and exposure - finding]Onset: 412338-38-0411RgkfaeocFtjxhed (20 sources)Near syncope; Translations: [Syncope and collapse]Onset: 07-10-2023 00-95-1055PmtpszveSdnjajnbonba (8 sources)Onset: 398824-90-0362Oteagalwdagz (1 source)Other ventricular tachycardia; Translations: [Other ventricular tachycardia]Onset: 03-21-2025 Results Test NameValueInterpretationReference VbsjlPfoyaiht34sc 32-43-188000Wkyzymqke lab results from 04/05/2025: GABINO Ordoñez MA His kidney function worsened from when he was in the hospital. Would like for him to hold aldactone for now. Hold entresto for 2 days then resume and have follow-up BMP in 1 week. Thank you. Spoke with patient's and she verbalized understanding. BMP order [facility] to [facility] FoundationXR Ankle - left 3 Viewson 28-11-7844Spvwofs Result: Notable talar tilt with degenerative changes to the tibiotalar joint with sclerosisNOMS HealthcareNOHI HealthcareRadiology Study observation (narrative) [facility] HealthcareNo Panel Informationon 64-83-2344IyzsruyGEMA Mccartney 03/29/2025 10:05 AM L Inj/Asp: L [...] neurovascular intact s/p injection. . ( Codes 23574) Procedure, treatment alternatives, risks and benefits explained, specific risks discussed. Consent was given by the patient. Patient was prepped and draped in the usual sterile fashion. [address] *[facility] Follow-[id number] Yusef Car 1950 M Date Provider Department Center 03/28/2025 Ko-ROSENDO SANCHEZ EZEQUIEL Narayanan [facility] Family History Problem Relation [...] Mother Father Sister Brother Brother Level of Service:67038 ID OFFICE/OUTPATIENT ESTABLISHED HIGH MDM 40 MIN Reason for Visit and Comments: Follow-up [439842] - Patient is here today for a follow up appointment [facility] for chest pressure and fluid around his heart. Patient is currently wearing a 30 day monitor.Patient would like to know if its ok to return to taking his Allopurinol in the pm. NSVT [Other] Frequent PVCs [Other] Hyperlipidemia [182] Hypertension [634723] Bradycardia [870263] Atrial tachycardia [Other] CKDA [Other] Dizziness [255700] - Dizziness/lightheaded with standingNormalUniversUniversity Hospitals Ahuja Medical Center30on 18-03-241007Dsx patient is Moderately Stable - Low risk [...] monitored and maintained or improved Outcome: Progressing .NormalUnSelect Medical Specialty Hospital - ColumbusBASIC METABOLIC PANELon 03-22-2025 Anion gap [Moles/Vol]11 mmol/LNormal7-20UnSelect [facility] - [place] Comment on above:Performed By: #### [id number] #### [facility] ([facility]) [address] [place], [place] [address]Ftmtrns [Mass/Vol]9.1 mg/dLNormal8.6-10.3UnSelect Medical Specialty Hospital - ColumbusComment on above:Performed By: #### [id number] #### [facility] [address] [place], [place] [address]Jfggpbke [Moles/Vol]106 mmol/XQvrlcs92-150YdiluwwfusSelect Medical Specialty Hospital - ColumbusComment on above:Performed By: #### [id number] #### [facility] ([facility]) [address] [place], [place] [address]AR0 [Moles/Vol]23 mmol/DYxexja14-59MmhegfuojySelect Medical Specialty Hospital - ColumbusComment on above:Performed By: #### [id number] #### [facility] ([facility]) [address] [place] [address]Rgffkyodpv [Mass/Vol]1.34 mg/dLHigh0.70-1.30UnSelect Medical Specialty Hospital - ColumbusComment on above:Performed By: #### [id number] #### [facility] ([facility]) [address] [place], [place] [address]TZWNZKMUBY FILTRATION RATE ML/MIN/1.73 SQ M.QYDXJZOJG41.2 mL/min/1.73m*2Low>60.0UnSelect Medical Specialty Hospital - ColumbusComment on above:Result Comment: [facility]???s estimated glomerular filtration rate (eGFR) will [...] group of individuals.Performed By: #### [id number] #### [facility] ([facility]) [address] [place] [address]Muvgsdt [Mass/Vol]113 mg/pPObat83-932QamfwupiadSelect Medical Specialty Hospital - ColumbusComment on above:Performed By: #### [id number] #### [facility] ([facility]) [address] [place] [address]Ohcciqewo [Moles/Vol]4.2 mmol/LNormal3.5-5.1UnSelect Medical Specialty Hospital - ColumbusComment on above:Performed By: #### [id number] #### [facility] ([facility]) [address] [place] [address]Zwhhqe [Moles/Vol]136 mmol/LGruunx896-541PjbbolowxuSelect Medical Specialty Hospital - ColumbusComment on above:Performed By: #### [id number] #### [facility] ([facility]) [address] [facility] [place], [place] [address]Cuco nitrogen [Mass/Vol]30 mg/dLHigh7-25UnSelect Medical Specialty Hospital - ColumbusComment on above:Performed By: #### [id number] #### [facility] ([facility]) [address] [facility] [facility] [place], [place] [address]APLK NITROGEN/CREATININE (MASS RATIO) IN SER/PLAS22.4Normal [facility]cy HospitalComment on above:Performed By: #### [id number] #### [facility] ([facility]) [address] [place], [place] [address]HJPxg 49-06-0267Ldckxawcazx distribution width (RBC) [Ratio]15.9 %High11.5-15.0UnSelect Medical Specialty Hospital - ColumbusComment on above:Performed By: #### [id number] #### [facility] ([facility]) [address] [place], [place] [address]NJNABVLZLPV MEAN CORPUSCULAR HEMOGLOBIN CONCENTRATION (G/DL) BY YVJAHYRDX59.5 g/eKChxtzj43.0-35.0UnSelect Medical Specialty Hospital - ColumbusComment on above:Performed By: #### [id number] #### [facility] ([facility]) [address] [place], [place] [address]Urqhdookpi (Bld) [Volume fraction]42.8 %Gudktg22.0-50.0 [facility] HospitalComment on above:Performed By: #### [id number] #### [facility] ([facility]) [address] [place], [place] [address]Ugncsivetl (Bld) [Mass/Vol]13.9 g/tJQsreio28.0-17.0UnSelect Medical Specialty Hospital - ColumbusComment on above:Performed By: #### [id number] #### [facility] ([facility]) [address] [facility] [facility] [place], [place] [address]KDS (RBC) [Entitic mass]28.7 qfIflkts38.0-33.0UnSelect Medical Specialty Hospital - ColumbusComment on above:Performed By: #### [id number] #### [facility] ([facility]) [address] [place] [address]DCL (RBC) [Entitic vol]88.2 pANoatng45.0-98.0UnSelect Medical Specialty Hospital - ColumbusComment on above:Performed By: #### [id number] #### [facility] ([facility]) [address] [place] [address]RWTTJQINQ (10*3/UL) IN BLOOD AUTOMATED HYVOU617 10*3/uLNormal 150-400UnSelect Medical Specialty Hospital - ColumbusComment on above:Performed By: #### [id number] #### [facility] ([facility]) [address] [place] [address]VXV (Bld) [#/Vol]4.85 10*6/uLNormal4.20-5.70UnSelect Medical Specialty Hospital - ColumbusComment on above:Performed By: #### [id number] #### [facility] ([facility]) [address] [place] [address]MKN (Bld) [#/Vol]9.48 10*3/uLNormal4.00-10.60UnSelect Medical Specialty Hospital - ColumbusComment on above:Performed By: #### [id number] #### [facility] ([facility]) [address] [place] [address]UJDUE PANELon 71-69-2143SEGC/HDL4.6 mg/dLNormalUniKettering Health SpringfieldComment on above:Performed By: #### [id number] #### [facility] ([facility]) [address] [place] [address]Ffuhiqvyslq [Mass/Vol]96 mg/rYIoj985-831YhnpgvhxovSelect Medical Specialty Hospital - ColumbusComment on above:Performed By: #### [id number] #### [facility] ([facility]) [address] [place] [address]Szqmmhtqu [Mass/Vol]164 mg/dLHigh<150UnSelect Medical Specialty Hospital - ColumbusComment on above:Result Comment: TRIGLYCERIDE REFERENCE RANGE: 20 YEARS AND OLDER CARDIOVASCULAR RISK LESS THAN 150 mg/dL LOW RISK 150 TO 199 mg/dL BORDERLINE RISK 200 mg/dL AND GREATER HIGH RISKPerformed By: #### [id number] #### [facility] ([facility]) [address] [place], [place] [address]Cyjwokuig [Mass/Vol]42 mg/dLNormal0-160UnSelect Medical Specialty Hospital - ColumbusComment on above:Performed By: #### [id number] #### [facility] ([facility]) [address] [place], [place] [address]Tfovfggvv [Mass/Vol]21 mg/cPZjr92-65XhffdyczfoSelect Medical Specialty Hospital - ColumbusComment on above:Performed By: #### [id number] #### [facility] ([facility]) [address] [place], [place] [address]YJW HDL CHOL. (LDL+VLDL)75NormalUniversUniversity Hospitals Ahuja Medical CenterComment on above:Performed By: #### [id number] #### [facility] ([facility]) [address] [place], [place] [address]XBLCO VLDL-C33 mg/dLNormal0-40UnSelect Medical Specialty Hospital - ColumbusComment on above:Performed By: #### [id number] #### [facility] ([facility]) [address] [place], [place] [address]DVQWRPLCOyh 82-36-7779Tszzyiwqh [Mass/Vol]2.0 mg/dLNormal1.9-2.7 [facility] HospitalComment on above:Performed By: #### [id number] #### [facility] ([facility]) [address] [place], [place] [address]QTITFGZEEWwb 05-12-7070Xpokoqust [Mass/Vol]3.7 mg/dLNormal 2.5-5.0UnSelect Medical Specialty Hospital - ColumbusComment on above:Performed By: #### [id number] #### [facility] ([facility]) [address] [place], [place] [address]YDMR GLUCOSE METER UNSOLICITED RESULTSon 51-99-8641Omjuren [Mass/Vol]153 mg/vMFrwa77-371NiapkpchprSelect Medical Specialty Hospital - ColumbusComment on above:Order Comment: Waived Testing in the ED is performed under the ED CLIA certificate #[id number].Result Comment: jarizmePerformed By: #### [id number] #### [facility] ([facility]) [address] [place] [address]Iwtzgpj [Mass/Vol]133 mg/tMSegq03-548XqpyrzqroeSelect Medical Specialty Hospital - ColumbusComment on above:Order Comment: Waived Testing in the ED is performed under the ED CLIA certificate #[id number].Result Comment: jarizme Performed By: #### [id number] #### [facility] ([facility]) [address] [place] [address]gb 70-20-366311Dxf patient is Moderately Stable - Low risk of patient condition declining or worsening The patient's goals for the shift include comfort and sleep The clinical goals for the shift include stable vitals; safety; comfort Over the shift, the patient continued to make progress toward the following goals.NormalUnSelect Medical Specialty Hospital - Columbus30The patient is Moderately Stable - Low risk [...] Adult Goal: Skin integrity remains intact Outcome: ProgressingNormalUniversity of [facility] Health [facility]enton30The patient is Moderately Stable - Low risk of patient condition declining or worsening The patient's goals for the shift include comfort The clinical goals for the shift include stable vitals Over the shift, the patient continued to make progress toward the following goals.NormalUnSelect Medical Specialty Hospital - ColumbusANTI-XA (HEPARIN LEVEL)on 08-14-9152OFKWCDM UNFRACTIONATED (U/ML) IN PPP BY CHROMOGENIC METHOD0.45 IU/mL Normal0.3-0.7UnSelect Medical Specialty Hospital - ColumbusComment on above:Order Comment: Check anti-Xa level every 6 hours while on heparin infusion, or per protocol. Result Comment: Rivaroxaban and Apixaban will interfere with the anti Xa assay used to monitor UFH and LMWH.Performed By: #### [id number] #### [facility] ([facility]) [address] [place] [address]VIIPnl 29-31-3364ZWFYEBUNU PARTIAL THROMBOPLASTIN TIME IN PPP BY COAGULATION ASSAY32.4 HrsttdqFntkzj35.0-35.0UnSelect [facility] - [place] Comment on above:Order Comment: Baseline aPTT before initiating heparin infusion.Result Comment: Clinical significance of the APTT is questionable in the presence of heparin.Performed By: #### [id number] #### [facility] ([facility]) [address] [place] [address]B-NFHO NATRIURETIC PEPTIDEon 23-72-5763Uzfjxozmeru peptide B (Bld) [Mass/Vol]460 pg/mLHigh0-100UnSelect Medical Specialty Hospital - ColumbusComment on above:Performed By: #### [id number] #### [facility] ([facility]) [address] [place] [address]LUMNQ METABOLIC PANELon 34-41-4927Wxxan gap [Moles/Vol]15 mmol/L Normal7-20UnSelect Medical Specialty Hospital - ColumbusComment on above:Performed By: #### [id number] #### [facility] ([facility]) [address] [place] [address]Bnhicmn [Mass/Vol]9.1 mg/dLNormal8.6-10.3UnSelect Medical Specialty Hospital - ColumbusComment on above:Performed By: #### [id number] #### [facility] ([facility]) [address] [place] [address]Fhjsljct [Moles/Vol]105 mmol/DPhxcjr42-288TrmiunvhhgSelect Medical Specialty Hospital - ColumbusComment on above:Performed By: #### [id number] #### [facility] ([facility]) [address] [place] [address]EM7 [Moles/Vol]21 mmol/DCfgyhm92-22WmaxagagdxSelect Medical Specialty Hospital - ColumbusComment on above:Performed By: #### [id number] #### [facility] ([facility]) [address] [place] [address]Hwmicbvwam [Mass/Vol]1.23 mg/dLNormal0.70-1.30UnSelect Medical Specialty Hospital - ColumbusComment on above:Performed By: #### [id number] #### [facility] ([facility]) [address] [place] [address]TWAKXDULAP FILTRATION RATE ML/MIN/1.73 SQ M.ZOJBSFMGW36.2 mL/min/1.73m*2Normal>60.0UnSelect Medical Specialty Hospital - ColumbusComment on above: Result Comment: [facility]???s estimated glomerular filtration rate (eGFR) will [...] affect anyone group of individuals.Performed By: #### [id number] #### [facility] ([facility]) [address] [place] [address]Ewqfpst [Mass/Vol]112 mg/pFGlyp64-372BcwjxshcfgSelect Medical Specialty Hospital - ColumbusComment on above:Performed By: #### [id number] #### [facility] ([facility]) [address] [place] [address]Macekolxq [Moles/Vol]4.0 mmol/LNormal3.5-5.1UnSelect Medical Specialty Hospital - ColumbusComment on above:Performed By: #### [id number] #### [facility] ([facility]) [address] [place] [address]Lvvofw [Moles/Vol]137 mmol/JFtdgsn820-349GojyjfxlbfSelect Medical Specialty Hospital - ColumbusComment on above:Performed By: #### [id number] #### [facility] ([facility]) [address] [place] [address]Nqxn nitrogen [Mass/Vol]31 mg/dLHigh7-25UnSelect Medical Specialty Hospital - ColumbusComment on above:Performed By: #### [id number] #### [facility] ([facility]) [address] [place] [address]OMAO NITROGEN/CREATININE (MASS RATIO) IN SER/PLAS25.2Normal [facility] HospitalComment on above:Performed By: #### [id number] #### [facility] ([facility]) [address] [place] [address]YXCcs 11-25-0828Ccuabwwfknq distribution width (RBC) [Ratio]15.8 %High11.5-15.0UnSelect Medical Specialty Hospital - ColumbusComment on above:Performed By: #### [id number] #### [facility] ([facility]) [address] [place], [place] [address]RHGQYSNCOZR MEAN CORPUSCULAR HEMOGLOBIN CONCENTRATION (G/DL) BY SOZYNISSC87.0 g/gJVgbjos07.0-35.0UnSelect Medical Specialty Hospital - ColumbusComment on above:Performed By: #### [id number] #### [facility] ([facility]) [address] [place], [place] [address]Rxlxflcctt (Bld) [Volume fraction]45.0 %Wtpufz07.0-50.0 [facility] HospitalComment on above:Performed By: #### [id number] #### [facility] ([facility]) [address] [place], [place] [address]Ppbjdyjakt (Bld) [Mass/Vol]14.4 g/iSRrtlqh02.0-17.0UnSelect Medical Specialty Hospital - ColumbusComment on above:Performed By: #### [id number] #### [facility] ([facility]) [address] [place], [place] [address]EKM (RBC) [Entitic mass]28.7 uzLoqjqq09.0-33.0UnSelect Medical Specialty Hospital - ColumbusComment on above:Performed By: #### [id number] #### [facility] ([facility]) [address] [facility] [place] [address]YTO (RBC) [Entitic vol]89.6 tKQqsoyk38.0-98.0UnSelect Medical Specialty Hospital - ColumbusComment on above:Performed By: #### [id number] #### [facility] ([facility]) [address] [place], [place] [address]KADRXVZEM (10*3/UL) IN BLOOD AUTOMATED HGJTV555 10*3/uLNormal 150-400UnSelect Medical Specialty Hospital - ColumbusComment on above:Performed By: #### [id number] #### [facility] ([facility]) [address] [place], [place] [address]QDP (Bld) [#/Vol]5.02 10*6/uLNormal4.20-5.70UnSelect Medical Specialty Hospital - ColumbusComment on above:Performed By: #### [id number] #### [facility] ([facility]) [address] [place], [place] [address]UCG (Bld) [#/Vol]9.59 10*3/uLNormal4.00-10.60UnSelect Medical Specialty Hospital - ColumbusComment on above:Performed By: #### [id number] #### [facility] ([facility]) [address] [place], [place] [address]FGU WITH AUTO DIFFERENTIALon 77-82-0318Aopvhhdif (Bld) [#/Vol] 0.04 10*3/uLNormal0.00-0.20UnSelect Medical Specialty Hospital - ColumbusComment on above: Performed By: #### [id number] #### [facility] ([facility]) [address] [place], [place] [address]Uoxkpdojr/100 WBC (Bld)0.4 %Normal0.0-1.0UnSelect Medical Specialty Hospital - ColumbusComment on above:Performed By: #### [id number] #### [facility] ([facility]) [address] [place] [address]Kqjgbyqelue (Bld) [#/Vol]0.12 10*3/uLNormal0.00-0.50UnSelect Medical Specialty Hospital - ColumbusComment on above:Performed By: #### [id number] #### [facility] ([facility]) [address] [place] [address]Dvhbinysfma/100 WBC (Bld)1.1 %Normal0.0-6.0UnSelect Medical Specialty Hospital - ColumbusComment on above:Performed By: #### [id number] #### [facility] ([facility]) [address] [place] [address]Hmqoupobgjt distribution width (RBC) [Ratio]15.9 %High11.5-15.0 [facility] HospitalComment on above:Performed By: #### [id number] #### [facility] ([facility]) [address] [place] [address]PBCWZTSAGDW MEAN CORPUSCULAR HEMOGLOBIN CONCENTRATION (G/DL) BY POZWLIPRI65.5 g/sERqsbpl69.0-35.0UnSelect Medical Specialty Hospital - ColumbusComment on above:Performed By: #### [id number] #### [facility] ([facility]) [address] [place], [place] [address]Xrasnpeagk (Bld) [Volume fraction]45.8 %Yptkwj36.0-50.0 [facility] HospitalComment on above:Performed By: #### [id number] #### [facility] ([facility]) [address] [place], [place] [address]Aaianmonhj (Bld) [Mass/Vol]14.9 g/zDVhvoze77.0-17.0UnSelect Medical Specialty Hospital - ColumbusComment on above:Performed By: #### [id number] #### [facility] ([facility]) [address] [place], [place] [address]Czqbgmia granulocytes (Bld) [#/Vol]0.04 10*3/uLNormal0.00-0.20 [facility] HospitalComment on above:Performed By: #### [id number] #### [facility] ([facility]) [address] [place], [place] [address]Exdiorla granulocytes/100 WBC (Bld)0.4 %Normal0.0-1.0UnSelect Medical Specialty Hospital - ColumbusComment on above:Performed By: #### [id number] #### [facility] ([facility]) [address] [place] [address]Rxcreaocvef (Bld) [#/Vol]1.85 10*3/uLNormal1.20-4.00UnSelect Medical Specialty Hospital - ColumbusComment on above:Performed By: #### [id number] #### [facility] ([facility]) [address] [place] [address]Pbisdvlmtnp/100 WBC (Bld)16.7 %Low20.0-45.0UnSelect Medical Specialty Hospital - ColumbusComment on above:Performed By: #### [id number] #### [facility] ([facility]) [address] [place] [address]NMN (RBC) [Entitic mass]28.7 maNzjvky03.0-33.0UnSelect Medical Specialty Hospital - ColumbusComment on above:Performed By: #### [id number] #### [facility] ([facility]) [address] [place] [address]UDE (RBC) [Entitic vol]88.1 gXPbwgko42.0-98.0UnSelect Medical Specialty Hospital - ColumbusComment on above:Performed By: #### [id number] #### [facility] ([facility]) [address] [place] [address]Dmwvxyoak (Bld) [#/Vol]0.95 10*3/uLNormal0.10-1.00UnSelect Medical Specialty Hospital - ColumbusComment on above:Performed By: #### [id number] #### [facility] ([facility]) [address] [place] [address]Hmylkroxc/100 WBC (Bld)8.6 %Normal5.0-12.0UnSelect Medical Specialty Hospital - ColumbusComment on above:Performed By: #### [id number] #### [facility] ([facility]) [address] [place] [address]Ifyngkfaxvx (Bld) [#/Vol]8.08 10*3/uLHigh1.60-7.60UnSelect Medical Specialty Hospital - ColumbusComment on above:Performed By: #### [id number] #### [facility] ([facility]) [address] [place] [address]Jckrjtpgtdg/100 WBC (Bld)72.8 %High40.0-72.0UnSelect Medical Specialty Hospital - ColumbusComment on above:Performed By: #### [id number] #### [facility] ([facility]) [address] [place] [address]CQUU (PER 100 WBCS) BY AUTOMATED COUNT0.0 %Bgamvu6UgquchibvgSelect Medical Specialty Hospital - ColumbusComment on above:Performed By: #### [id number] #### [facility] ([facility]) [address] [place] [address]KOROXZUKE (10*3/UL) IN BLOOD AUTOMATED MLXIL111 10*3/uLHigh 150-400UnSelect Medical Specialty Hospital - ColumbusComment on above:Performed By: #### [id number] #### [facility] ([facility]) [address] [place] [address]FFD (Bld) [#/Vol]5.20 10*6/uLNormal4.20-5.70UnSelect Medical Specialty Hospital - ColumbusComment on above:Performed By: #### [id number] #### [facility] ([facility]) [address] [place] [address]EKU (Bld) [#/Vol]11.08 10*3/uLHigh4.00-10.60UnSelect Medical Specialty Hospital - ColumbusComment on above:Performed By: #### [id number] #### [facility] ([facility]) [address] [place] [address]ZLMUWWEBSGWCQ METABOLIC PANELon 06-99-2445Feoreva [Mass/Vol]4.3 g/dLNormal3.5-5.7UnSelect Medical Specialty Hospital - ColumbusComment on above:Performed By: #### [id number] #### [facility] ([facility]) [address] [place], [place] [address]XPT [Catalytic activity/Vol]101 U/LHrlluz79-771NvpjwjxvtmSelect Medical Specialty Hospital - ColumbusComment on above:Performed By: #### [id number] #### [facility] ([facility]) [address] [place], [place] [address]MGH [Catalytic activity/Vol]9 U/LNormal7-52UnSelect Medical Specialty Hospital - ColumbusComment on above:Performed By: #### [id number] #### [facility] ([facility]) [address] [place], [place] [address]Dtgbo gap [Moles/Vol]12 mmol/LNormal7-20UnSelect Medical Specialty Hospital - ColumbusComment on above:Performed By: #### [id number] #### [facility] ([facility]) [address] [place], [place] [address]ESY [Catalytic activity/Vol]13 U/BOtnzqd27-78AwvsaegmbfSelect Medical Specialty Hospital - ColumbusComment on above:Performed By: #### [id number] #### [facility] ([facility]) [address] [place], [place] [address]Opnqyqaus [Mass/Vol]0.6 mg/dLNormal0.3-1.0UnSelect Medical Specialty Hospital - ColumbusComment on above:Performed By: #### [id number] #### [facility] [address] [place], [place] [address]Pyidxoi [Mass/Vol]9.4 mg/dLNormal8.6-10.3UnSelect Medical Specialty Hospital - ColumbusComment on above:Performed By: #### [id number] #### [facility] ([facility]) [address] [place], [place] [address]Hvxfdbae [Moles/Vol]103 mmol/CYgftpv69-068PperdeatjaSelect Medical Specialty Hospital - ColumbusComment on above:Performed By: #### [id number] #### [facility] ([facility]) [address] [place], [place] [address]BP8 [Moles/Vol]25 mmol/HVwztkl08-29WorgzajqcaSelect Medical Specialty Hospital - ColumbusComment on above:Performed By: #### [id number] #### [facility] ([facility]) [address] [place] [address]Zbnpjlqjca [Mass/Vol]1.33 mg/dLHigh0.70-1.30UnSelect Medical Specialty Hospital - ColumbusComment on above:Performed By: #### [id number] #### [facility] ([facility]) [address] [place], [place] [address]IKHQZLAZJK FILTRATION RATE ML/MIN/1.73 SQ M.YVKYVNINC00.7 mL/min/1.73m*2Low>60.0UnSelect Medical Specialty Hospital - ColumbusComment on above:Result Comment: [facility]???s estimated glomerular filtration rate (eGFR) will [...] affect anyone group of individuals.Performed By: #### [id number] #### [facility] ([facility]) [address] [place], [place] [address]Plspwfz [Mass/Vol]122 mg/qUYsfc18-072PgnwogolzySelect Medical Specialty Hospital - ColumbusComment on above:Performed By: #### [id number] #### [facility] ([facility]) [address] [place], [place] [address]Hnztqhszo [Moles/Vol]4.2 mmol/LNormal3.5-5.1UnSelect Medical Specialty Hospital - ColumbusComment on above:Performed By: #### [id number] #### [facility] ([facility]) [address] [place] [address]Arqakby [Mass/Vol]7.0 g/dLNormal6.0-8.3[facility] Medical CenterComment on above:Performed By: #### [id number] #### [facility] ([facility]) [address] [place] [address]Gpkeqa [Moles/Vol]136 mmol/NIjvcun816-685YlijardcvqSelect Medical Specialty Hospital - ColumbusComment on above:Performed By: #### [id number] #### [facility] ([facility]) [address] [place] [address]Smay nitrogen [Mass/Vol]31 mg/dLHigh7-25UnSelect Medical Specialty Hospital - ColumbusComment on above:Performed By: #### [id number] #### [facility] ([facility]) [address] [place] [address]VIWG NITROGEN/CREATININE (MASS RATIO) IN SER/PLAS23.3Normal Mercy HospitalComment on above:Performed By: #### [id number] #### [facility] ([facility]) [address] [place], [place] [address]HQIBCSNqi 66-46-6724HZBSFUV Attestation signed by Zeus Schroeder MD at [...] normal pressures. Patient was transferred over to [facility] for possible cardiac catheterization. On presentation [...] kidney disease) stage 3, GFR 30-59 ml/min ([facility]), Diabetes 1.5, managed as type 2 ([facility]), HTN (hypertension), Hyperlipidemia, NSVT (nonsustained ventricular tachycardia) ([facility]), Orthostatic hypotension, and Primary malignant neoplasm of duodenum ([facility]). Surgical History He has a past surgical [...] Value Ventricular Rate 74 Atrial Rate 74 ID Interval 192 QRS DURATION 160 QT Interval 498 QTC CALCULATION(BAZETT) 552 P Omaha 52 R-[place]maha 133 T Wave [place] -12 Impression Sinus rhythm with occasional Premature [...] Relevant Imaging Results ECG (more content not included)...NormalUnSelect Medical Specialty Hospital - ColumbusHIGH SENSITIVITY TROPONIN Ion 61-30-2607FZ TROPONIN I (NG/L)28 ng/LHigh<20UnSelect Medical Specialty Hospital - ColumbusComment on above:Performed By: #### [id number] #### [facility] ([facility]) [address] [place], [place] [address]PE TROPONIN I (NG/L)43 ng/LHigh<20[facility] Medical CenterComment on above:Performed By: #### [id number] #### [facility] ([facility]) [address] [place], [place] [address]RI TROPONIN I (NG/L)43 ng/LHigh<20UnSelect Medical Specialty Hospital - ColumbusComment on above:Performed By: #### [id number] #### [facility] ([facility]) [address] [place] [address]BQjf 81-06-6116USA&P reviewed. The patient was examined and there are no changes to the H&P.NormalUnSelect Medical Specialty Hospital - Columbus MAGNESIUMon 68-65-8106Tqonjpahi [Mass/Vol]2.1 mg/dLNormal1.9-2.7UnSelect Medical Specialty Hospital - ColumbusComment on above:Performed By: #### [id number] #### [facility] ([facility]) [address] [place], [place] [address]UAKDSGQGhu 78-57-5748UOVCOWYULdyxgp given to ALONSO Adams from Rebecca Any medications or safety alerts were reviewed. Any pending diagnostics and notifications were also reviewed, as well as any safety concerns or issues, abnormal labs, abnormal imagining, and abnormal assessment findings. Questions were answered. Bedside report given to ALONSO Adams from ALONSO Fernandez. optical laboratory mechanic RN presented site to bedside RN. Bedside RN visualized site and palpated site to ensure there was no hematoma or bruising, and femoral site appears flat. Both bedside RN and laborer demolition RN mutually agreed that the site presents normal. optical laboratory mechanic RN and bedside RN either palpated or used a doppler to assess pulses on the patient.NormalUnSelect Medical Specialty Hospital - ColumbusPHOSPHORUSon 03-21-2025 Magnesium [Mass/Vol]3.6 mg/dLNormal2.5-5.0UnSelect Medical Specialty Hospital - Columbus Comment on above:Performed By: #### [id number] ####[facility] ([facility])[address] [place], [place] [address]ZMJD GLUCOSE METER UNSOLICITED RESULTSon 03-21-2025 Glucose [Mass/Vol]124 mg/jSHmjh41-295OwvepchcptSelect Medical Specialty Hospital - ColumbusComment on above:Order Comment: Waived Testing in the ED is performed under the ED CLIA certificate #[id number].Result Comment: msvgasj7Bbzggziuy By: #### [id number] #### [facility] ([facility]) [address] [place], [place] [address]Ldbbblj [Mass/Vol]156 mg/wXJzty56-802HoxsdmnvecSelect Medical Specialty Hospital - ColumbusComment on above:Order Comment: Waived Testing in the ED is performed under the ED CLIA certificate #[id number].Result Comment: jarizme Performed By: #### [id number] #### [facility] ([facility]) [address] [place], [place] [address]Koewgdq [Mass/Vol]130 mg/pUKzgf09-864IgerjulbkkSelect Medical Specialty Hospital - ColumbusComment on above:Order Comment: Waived Testing in the ED is performed under the ED CLIA certificate #[id number].Result Comment: jarizme Performed By: #### [id number] #### [facility] ([facility]) [address] [place], [place] [address]PCAAWLE-OCTii 79-40-4599EBY IN PPP BY COAGULATION ASSAY1.02 Normal0.90-1.10UnSelect Medical Specialty Hospital - ColumbusComment on above:Result Comment: [facility] RECOMMENDED INR FOR WARFARIN THERAPY CONDITION INR PROPHYLAXIS OF VENOUS THROMBOSIS 2-3 (HIGH-RISK SURGERY) TREATMENT OF VENOUS THROMBOSIS 2-3 TREATMENT OF PULMONARY EMBOLISM 2-3 PREVENTION OF SYSTEMIC EMBOLISM: 2-3 ACUTE MYOCARDIAL INFARCTION TISSUE HEART VALVES VALVULAR HEART DISEASE ATRIAL FIBRILLATION RECURRENT SYSTEMIC EMBOLISM MECHANICAL HEART VALVE 2.5-3.5 FROM: ORAL ANTICOAGULANTS. MECHANISM OF ACTION, CLINICAL EFFECTIVENESS, AND OPTIMAL THERAPEUTIC RANGE. CHEST 1995;108:231S-246S.Performed By: #### [id number] #### [facility] ([facility]) [address] [place], [place] [address]LKTOBTZALHW TIME (PT) IN PPP BY COAGULATION ASSAY13.4 Seconds Qlkifm05.3-14.8Mercy HospitalComment on above:Performed By: #### [id number] #### [facility] ([facility]) [address] [place], [place] [address]Zgeaslnrr Auto (Bld) [#/Vol]Ordered By: Pj Isabel on 42-34-4216Hbvpibrya (Bld) [#/Vol]0.0 10 3/uL0.0-0.1FMagruder HospitalBasophils/100 WBC Auto (Bld)Ordered By: Pj Isabel on 03-20-2025 Basophils/100 WBC (Bld)0.2 %0.2-2.0Select [facility] Specialty Hospital - CincinnatiCholesterol in LDL Calc [Mass/Vol]Ordered By: Ruben Coats on 09-36-9347Lefbdqottzy in LDL [Mass/Vol]58.0 mg/dLSelect Medical Specialty Hospital - CincinnatiComment on above:<100 mg/dl QKJJTGD135-557 mg/dl NEAR OR ABOVE NUSXYDB424-404 mg/dl BORDERLINE CSEE511-624 mg/dl HIGH>190 mg/dl VERY HIGHCholesterol in VLDL Calc [Mass/Vol]Ordered By: Ruben Coats on 06-73-3678Xhwgmwjxkbq in VLDL [Mass/Vol]22.8 mg/dLSelect Medical Specialty Hospital - CincinnatiEosinophils/100 WBC Auto (Bld)Ordered By: Pj Isabel on 97-67-0334Grausxocnrg/100 WBC (Bld)1.2 %0.9-7.0Select Medical Specialty Hospital - CincinnatiErythrocyte distribution width Auto (RBC) [Ratio]Ordered By: Pj Isabel on 42-35-0158Muglbvhwwej distribution width (RBC) [Ratio]15.8 %High11.0-15.0 [facility] Specialty Hospital - CincinnatiFibrin D-dimer [Presence] in Platelet poor plasma by Latex agglutinationOrdered By: Pj Isabel on 89-91-4152Xcgxqi D- dimer LA Ql (PPP)0.69 mg/L FEUCritically high<=0.59Select Medical Specialty Hospital - CincinnatiComment on above:RESULTS CALLED TO CONTRERAS MOLINA RN [...] in non- AmericanOrdered By: Ruben Coats on 36-73-8586YHH/1.73 sq M.predicted among non-blacks MDRD (S/P/Bld) [Vol rate/Area]55 mL/min/{1.73_m2}Low>=60 mL/min/1.73m 2FMagruder HospitalHematocrit Auto (Bld) [Volume fraction]Ordered By: Pj Isabel on 31-05-0694Rherrxiorj (Bld) [Volume fraction]46.2 %42.0-54.0 [facility] Hospital - CincinnatiHemoglobin [Mass/volume] in BloodOrdered By: Pj Isabel on 85-41-9072Hnoytmvllm (Bld) [Mass/Vol]15.1 g/dL14.0-18.0 [facility] - CincinnatiLaboratory - Chemistry and Chemistry - challengeOrdered By: Ruben Coats on 46-69-3725Eprjpvh [Mass/Vol]9.3 mg/dL 8.5-10.1FMagruder HospitalChloride [Moles/Vol]105 mmol/L98-107 [facility] - CincinnatiCholesterol [Mass/Vol]111 mg/dL<=200Select [facility] - CincinnatiCholesterol in HDL [Mass/Vol]31 mg/iNKzz15-60ZbmgdqvcpSelect Medical Specialty Hospital - CincinnatiComment on above:> or =60 mg/dl - LOW CARDIOVASCULAR RISK<40 mg/dl - HIGH CARDIOVASCULAR RISKCO2 [Moles/Vol]25.1 mmol/L21.0-32.0 [facility] - CincinnatiCreatinine [Mass/Vol]1.28 mg/dL0.70-1.30 [facility] Hospital - CincinnatiGFR/1.73 sq M.predicted MDRD (S/P/Bld) [Vol rate/Area]mL/min/{1.73_m2}>=60 mL/min/1.73m 2FMagruder Hospital Glucose [Mass/Vol]152 mg/vQJzis18-129QjimmhfujSelect Medical Specialty Hospital - CincinnatiMagnesium [Mass/Vol]2.2 mg/dL1.8-2.4FMagruder HospitalPotassium [Moles/Vol] 4.5 mmol/L3.5-5.1FTrumbull Memorial Hospitalodium [Moles/Vol]141 mmol/L 136-145Select [facility] Hospital - CincinnatiTriglyceride [Mass/Vol]114 mg/dL<=150 [facility] - CincinnatiTSH Qn1.983 m[IU]/L0.358-3.740Select [facility] Specialty Hospital - CincinnatiUrea nitrogen [Mass/Vol]28.0 mg/dLHigh7.0-18.0[facility] Hospital - CincinnatiUrea nitrogen/Creatinine [Mass ratio]21.9 mg/mgSelect Medical Specialty Hospital - CincinnatiLaboratory - Chemistry and Chemistry - challengeOrdered By: Pj Isabel on 75-41-4655Glhukrvjpms peptide B (Bld) [Mass/Vol]2610.0 pg/mLCritically high<=1800.0Select [facility] Specialty Hospital - CincinnatiComment on above: RESULTS CALLED TO SEVERIANO ARANGO RN @BY Dominique Reinoso at [address]Laboratory - Hematology and Cell countsOrdered By: Pj Isabel on 09-80-2184Omptiuqw granulocytes/100 WBC (Bld)0.3 %0.0-0.5FMagruder Hospital Laboratory - Microbiology and Antimicrobial susceptibilityOrdered By: Pj Isabel on 40-65-9612CSFD-CoV-2 (COVID-19) RNA SHRUTI+probe Ql (Unsp spec)Negative NEGATIVESelect Medical Specialty Hospital - CincinnatiComment on above:This test has not been FDA [...] by Automated counOrdered By: Pj Isabel on 67-18-5716XAP corrected for nucl RBC Auto (Bld) [#/Vol]13.3 10 3/uLHigh4.0-11.0[facility] Lymphocytes Auto (Bld) [#/Vol]Ordered By: Pj Isabel on 62-59-0105Juxmcoquyxw (Bld) [#/Vol]1.4 10 3/uL1.2-3.8[facility] Special[facility] Hospital - CincinnatiLymphocytes/100 WBC Auto (Bld)Ordered By: Pj Isabel on 91-92-8866Iyaibhiiuud/100 WBC (Bld) 10.8 %Low20.5-60.0[facility] Auto (RBC) [Entitic mass] Ordered By: Pj Isabel on 08-48-5472HAM (RBC) [Entitic mass]29.2 pg25.9-34.0 [facility] - CincinnatiMCHC Auto (RBC) [Mass/Vol]Ordered By: Pj Isabel on 92-20-0800DSUX (RBC) [Mass/Vol]32.7 g/dL29.9-35.2FParkview Health Bryan HospitalV Auto (RBC) [Entitic vol]Ordered By: Pj Isabel on 88-04-1854PEU (RBC) [Entitic vol]89.2 fL80.0-94.0[facility] Hospital - CincinnatiMonocytes Auto (Bld) [#/Vol]Ordered By: Pj Isabel on 03-20-2025 Monocytes (Bld) [#/Vol]0.8 10 3/uL0.3-0.8[facility] Monocytes/100 WBC Auto (Bld)Ordered By: Pj Isabel on 95-62-1275Uijbxvtlo/100 WBC (Bld)6.0 %1.7-12.0[facility] Hospital - CincinnatiNeutrophils Auto (Bld) [#/Vol]Ordered By: Pj Isabel on 10-09-8714Pnwwjienbqd (Bld) [#/Vol]10.9 10 3/uLHigh1.4-6.5FMagruder HospitalNeutrophils/100 WBC Auto (Bld) Ordered By: Pj Isabel on 83-04-7160Owgpznsoplt/100 WBC (Bld)81.5 %High 43.0-75.0[facility] - CincinnatiNo Panel InformationOrdered By: Ruben Coats on 26-06-3965Behbuuoh I High Rihartskeqk90.0 pg/mLCritically high 4.0-76.1FMagruder HospitalComment on above:RESULTS CALLED TO MSISY VILLATORO RN at 1625CUT-OFF POINTS HAVE BEEN [...] OTHER DIAGNOSTIC AND CLINICAL INFORMATION.Phosphorus Level4.0 mg/dL2.6-4.7 [facility] - CincinnatiNo Panel InformationOrdered By: Pj Isabel on 48-94-8971Duccqax Influenza Type A AntigenNegativeSelect Medical Specialty Hospital - CincinnatiComment on above:Negative for Flu A protein antigen. Infection due to Flu Acannot be ruled out. Flu A antigen in thesample may bebelow the detection limit of the test.Bedside Influenza Type B AntigenNegativeSelect Medical Specialty Hospital - CincinnatiComment on above:Negative for Flu B protein antigen. Infection due to Flu Bcannot be ruled out. Flu B antigen in thesample may bebelow the detection limit of the test.Eosinophils # (Auto)0.2 10 3/uL0.0-0.7FMagruder HospitalImmature Granulocyte # (Auto)0.04 10 3/uLHigh0.00-0.03[facility] Hospital - CincinnatiPlatelet mean volume Auto (Bld) [Entitic vol]Ordered By: Pj Isabel on 99-96-7129Wyreojot mean volume (Bld) [Entitic vol]10.3 fL9.5-13.5 [facility] Hospital - CincinnatiPlatelets Auto (Bld) [#/Vol]Ordered By: Pj Isabel on 01-85-5884Hchhmwevg (Bld) [#/Vol]415 10 3/eF697-805KnmsfpbttSelect Medical Specialty Hospital - CincinnatiRBC Auto (Bld) [#/Vol]Ordered By: Pj Isabel on 95-68-7089NVM (Bld) [#/Vol]5.18 10 6/uL4.70-6.10[facility]'s Medical Centererum or plasma anion gap determinationOrdered By: Ruben Coats on 25-73-3464Tsbtx gap [Moles/Vol]15.4 mmol/LFTrumbull Memorial Hospitalerum or plasma total cholesterol/high density lipoprotein (HDL) cholesterol mass ratOrdered By: Ruben Coats on 13-74-9613Oogjjlsazhg.total/Cholesterol in HDL [Mass ratio]3.6 {ratio}[facility] Hospital - CincinnatiComment on above:3.3 - 4.4 LOW RISK4.4 - 7.1 AVERAGE RISK7.1 - 11.0 MODERATE RISK>11.0 HIGH SNUREkU7d HPLC (Bld) [Mass fraction]Ordered By: Tomeka Rosado on 12-05-6516IoW6a (Bld) [Mass fraction]7.1 % [facility] Hospital - CincinnatiXR ANKLE LT MIN 3Von 82-24[place] [address] XRay Report Signed Patient: YUSEF CAR MR#: [id number] : 1950 Acct:[id number] Age/Sex: 74 / M ADM Date: 01/09/25 Loc: RAD Attending Dr: Tomeka Rosado NP Ordering Physician: Tomeka Rosado NP Date of Service: 01/09/25 Procedure(s): XR ankle LT min 3V Accession Number(s): [id number] cc: Tomeka Rosado NP [facility] [place] [address] Patient Name: YUSEF CAR MRN: [facility]:[id number] date: 1950 Sex: M Assigned Patient Location: RAD Current Patient Location: [facility] Accession/Order Number: [id number] Exam Date: 01/09/2025 10:50 Report Date: 01/09/2025 [...] Dudley M.D. 01/09/2025 10:56 AM Dictation Location: [place] [address] Electronically authenticated by: [id number] Y Date: 01/09/2025 10:56 Dictated By: Kisha Dudley M.D. Signed By: 01/09/25 1059 DD/ 1056 TD/TT: Business Banker:FABIENNEHRadiology, Radiologist, - 01/09/2025 [place] [address] XRay Report Signed Patient: YUSEF CAR MR#: [id number] : 1950 Acct:[id number] Age/Sex: 74 / M ADM Date: 01/09/25 Loc: RAD Attending Dr: Tomeka Rosado NP Ordering Physician: Tomeka Rosado NP Date of Service: 01/09/25 Procedure(s): XR ankle LT min 3V Accession Number(s): [id number] cc: Tomeka Rosado NP [address] [address] Patient Name: YUSEF CAR MRN: [facility]:[id number] date: 1950 Sex: M Assigned Patient Location: [facility] Current Patient Location: [facility] Accession/Order Number: [id number] Exam Date: 01/09/2025 10:50 Report Date: 01/09/2025 [...] Dudley M.D. 01/09/2025 10:56 AM Dictation Location: [place] [address] Electronically authenticated by: [id number] Y Date: 01/09/2025 10:56 Dictated By: Kisha Dudley M.D. Signed By: 01/09/25 1059 DD/ 1056 TD/TT: Business Banker: GAYE HealthcareRadiology Study observation (narrative)NOMS HealthcareXR ANKLE LT MIN 3VOrdered By: Radiologist Radiology on 64-58-4029JDQN Healthcare Work Phone: MRI ABDOMEN W WO CONTRASTon 24-65-1314ZXO ABDOMEN W WO CONTRASTRADRPT EXAM: MRI ABDOMEN [...] Signed by: Veronica Patel MD 12/17/24 Final resultNoProtestant HospitalBU & Creatinineon 12-08-2024 Creatinine [Mass/Vol]1.07 mg/dL0.66 - 1.25 mg/dLSt. Charles Hospital [facility] Filt Rate72- PINFOhio State East HospitalComment on above: GFR calculated using CKD-EPI (2020) formula. Stage 1 Kidney damage (e.g., protein in the urine) with normal GFR >=90 Stage 2 Kidney damage with mild decrease in GFR 60-89 Stage 3a Moderate decrease in GFR 45-59 Stage 3b Moderate decrease in GFR 30-44 Stage 4 Severe reduction in GFR 15-29 Stage 5 Kidney failure <15 Interpretation and review of laboratory resultsAbnoProtestant Hospital Urea nitrogen (BldV) [Mass/Vol]24 mg/dLHigh9 - 20 mg/dLAultman Hospital AND CREATININEon 22-14-8850Vgcodhwcyt [Mass/Vol] 1.07 mg/dLNormal0.66-1.25Ohio State East HospitalComment on above:Performed By: #### BUNCRE #### [place] [id number] Ph. [phone]/1.73 sq M.predicted among non-blacks MDRD (S/P/Bld) [Vol rate/Area]72 mL/min/{1.73_m2}Normal>60WSamaritan North Health CenterComment on above: Result Comment: GFR calculated using CKD-EPI (2020) formula.\X0D0A\Stage 1 Kidney damage (e.g., protein in the urine) with normal GFR >=90\X0D0A\Stage 2 Kidney damage with mild decrease in GFR 60-89\X0D0A\Stage 3a Moderate decrease in GFR 45-59\X0D0A\Stage 3b Moderate decrease in GFR 30-44\X0D0A\Stage 4 Severe reduction in GFR 15-29\X0D0A\Stage 5 Kidney failure <15Performed By: #### BUNCRE #### [place] [id number] Ph. [phone] nitrogen [Mass/Vol]24 mg/dLHigh9-20Ohio State East HospitalComment on above:Performed By: #### BUNCRE #### [place] [id number] Ph. [phone] Panel Informationon 78-94-0519DpbojrjGEMA Mccartney 11/30/2024 10:44 AM L Inj/Asp: L [...] neurovascular intact s/p injection. . ( Codes 65260) Procedure, treatment alternatives, risks and benefits explained, specific risks discussed. Consent was given by the patient. Patient was prepped and draped in the usual sterile fashion. [facility] CareUrine Cultureon [id number] identified Cx Nom (U)No Growth 2 Days PERFORMED BY: [place] [address] PATHOLOGIST PARKING SUPERVISOR ADE BELTRAN M.D.NormalRiver Point Behavioral Health Physician GroupComment on above: Performed By: #### CUU #### [place] [address] USAXR ABDOMEN 1Von [id number] [address] XRay Report Signed Patient: YUSEF CAR MR#: [id number] : 1950 Acct:[id number] Age/Sex: 74 / M ADM Date: 11/28/24 Loc: LAB Attending Dr: Tomeka Rosado NP Ordering Physician: Tomeka Rosado NP Date of Service: 11/28/24 Procedure(s): XR abdomen 1V Accession Number(s): [id number] cc: Tomeka Rosado NP [place] [id number] Patient Name: YUSEF CAR MRN: [id number] date: 1950 Sex: M Assigned Patient Location: LAB Current Patient Location: LAB Accession/Order Number: [id number] Exam Date: 11/28/2024 16:16 Report Date: 11/28/2024 [...] Gallardo M.D. 11/28/2024 4:17 PM Dictation Location: [place] [address] Electronically authenticated by: [id number] Y Date: 11/28/2024 16:17 Dictated By: Jose A Gallardo M.D. Signed By: 11/28/24 1620 DD/ 16 TD/TT: Business Banker:TBHRadiology, Radiologist, - 11/28/2024 [place] [address] XRay Report Signed Patient: YUSEF CAR MR#: [id number] : 1950 Acct:[id number] Age/Sex: 74 / M ADM Date: 11/28/24 Loc: LAB Attending Dr: Tomeka Rosado NP Ordering Physician: Tomeka Rosado NP Date of Service: 11/28/24 Procedure(s): XR abdomen 1V Accession Number(s): [id number] cc: Tomeka Rosado NP [place] [address] Patient Name: YUSEF CAR MRN: [id number] date: 1950 Sex: M Assigned Patient Location: LAB Current Patient Location: LAB Accession/Order Number: [id number] Exam Date: 11/28/2024 16:16 Report Date: 11/28/2024 [...] Gallardo M.D. 11/28/2024 4:17 PM Dictation Location: [place] [address] Electronically authenticated by: [id number] Y Date: 11/28/2024 16:17 Dictated By: Jose A Gallardo M.D. Signed By: 11/28/24 162 DD/ 161 TD/TT: Business Banker: GAYE HealthcareRadiology Study observation (narrative)NOM HealthcareXR ABDOMEN 1VOrdered By: Radiologist Radiology on 85-25-8496FNER [facility] Work Phone: Orders Onlyon 57-38-6872Aeeugw [id number] Yusef Car 1950 M Date Provider Department Center 11/23/2024 I5125-WNVLEYRW, VICENTE EZEQUIEL Arteaga Family History Problem Relation Age of Onset Angina Mother Cancer Mother Heart attack Mother Heart failure Mother Hypertension Mother Cancer Father Diabetes type II Father Hypertension Father Cancer Sister Diabetes type II Sister Cancer Brother Diabetes type II Brother Hypertension Brother Cancer Brother Diabetes type II Brother Family Status - Relation Status Age at Mother Father Sister Brother BrotherNormalUniversity [facility] Clinic Union HospitalOffice Visiton 38-32-9411Aoxklw-up [id number] Yusef Car 1950 M Date Provider Department Center 11/22/2024 NOE FERREIRA EZEQUIEL Arteaga Family History Problem [...] Mother Father Sister Brother Brother Level of Service:14885 ID OFFICE/OUTPATIENT ESTABLISHED LOW [facility]L [facility]Asp: L glenohumeralon 46-66-9522SczdqomGEMA Mccartney 08/12/2024 9:19 AM L Inj/Asp: L [...] neurovascular intact s/p injection. . ( Codes 01581-YW) Procedure, treatment alternatives, risks and benefits explained, specific risks discussed. Consent was given by the patient. Patient was prepped and draped in the usual sterile fashion. [facility] Health CareHbA1c (Bld) [Mass fraction]Ordered By: Ruby Campbell on 56-13-0098Ufeajgylllxlnr and review of laboratory resultsAbnormal [facility] CareLaboratory - Hematology and Cell countsOrdered By: Ruby Campbell on 71-79-3598MlD7u (Bld) [Mass fraction]7.70 %[facility] Surgical pathology studyOrdered By: Olimpia Ware on 83-39-3516Aamxbnygws comment Gui (Report) b5bwkBRbRVVbs4tvKIBlpQOxLpVlWsJlVgRcLoqrzZEgXHewpvXnABjfk1MuJ6HvYmGyDLlmkgPnRULf OfwlsoanYWZrGXJ8buAi MJXpAEsrHUHyVGhfWb7syBEjwNepClYzBBQar2qsbcCSHTsrNWYVXWx7p1bwGPVfSsJ7sKYnKKcoT2ku olRcgBWkZ6Vuz3MiSHq5 xT02SLXiwJ1ifICtJNrnlnYpKxH1QItrACPpPkP3HXBxgJYaJDFaX2vhXRBrEJcvGNTkYSyhaPWzYOI9 kWtvq4L3nHYyyAAqzQxw XhWiVlOiAeUIh4PyBCt0mEymN0WfSZWoQfI0fBZeOTGeLIfpNBRhUVKrfxV8lS78DVyrjnW6bKLto4Vf a02ct379vR7wkNKjZYX9 MBOvTLZaiSDoFUPdOLI4LWKgyJLjL7bsKtMfuWIeA4HhCnSdzTLlW1AvUtYwmGVbD8IdPpYimQLjMROo iLJ4ZWlcy168URK9EfYi NY7kE1Pfi4T7sD8cpSElETRxuLJtSpQeICXhqi4zwGAuVKqvs0UdYNI4taN6fHDysFRiZBYdWS48Rxni g1AoZsraUHE0VKNyudQd l0Gpo7inAsLbxvQaF3ibD4NnPGOdDQUmSFSpSmJvygOyp6Ehz8EduDTiiCk9g3jvYAQqMRNtsJiin2ve HHC4RBAhU3L4nNFgk3ej BMghKYSdjCX3onD6INzzEAAmipI9urY2NRymBZDhgUO1evV5QXoqUGNwLoO3vqS3OOwaAKCmSGX6BcBd VOWlx2TldednQpHpc9Lm sOXxBDjkZ18vd462IVIejuLzK5wwqFHnjogjhNAqmbqfUSoefhP4IRMlJTCtIYykAILeGGQmQjZlqKTw ZzEwMzNcaGljaFxmMVxk SyLgYTQsWUwnS2suRaPwOcNyMPGRgYW8gLFez6uzuuD3lNAuFK1zCHQmzSUuklGqd5I1ACE8wNBwfF6m wLXyJMTkfVCyxtImrt25 jLRvkSV3IGWrRZRaqWCkfS9mVEQwNDQEzI3bgHFBriAuuaOmESOgkUswoj8RhERqku7fkFYyY5UzjFwj bKDzQVXbISNysSehlNZmVFWiOIMrccpwu7XjLRGsxTCaR6IrEW3lIVPgsl13Blivfhanuc [facility] Work Phone: Pathology report Cancer NarrativeSurgical Pathology Case: [id number] Authorizing Provider: Jeremiah Magaña MD Collected: 06/30/2024 0957 Ordering Location: [facility] Received: 06/30/2024 1055 Pathologist: Olimpia Ware MD Specimens: A) - DUODENAL BULB BIOPSY, Bx Scar B) - STOMACH ANTRUM BIOPSY, r/o H Pylori C) - STOMACH BODY/CORPUS POLYPECTOMY, Polyp Cardia [facility] Work Phone: Pathology report final diagnosis Narrative u5zjvDDgUBVuoYIwOIzpUviitdPpUPSqeWOuV6LycxpdMGfgHZ4rHH2skImssBMvuGUmTUYtUzIbt2ui h093wKXnk2krGBQGazxq hEe3eAyaE25yh0R4TmbbW0bcEWXgNMvdOCKuVSsaoOIwQDp0GIUykSBokbFbGtEmCCWxpCDnqNG7FAEm LZ3tdsjaIIlmOQwcDEHx lfK8AIDbnOVsZ4MjADIxXI3upccjDLX8OOtoTRVrHAP5HhMaXDDua6Ssvma3FbVthDa5r3gcHWJsQFMc cKgff6seSOE7LGQzvQAu I1sgjW3aPZYaRD2kfwycc2yrDYxgIRrkEWHrtXH5dpV3REIypMPwA8NmnX8pKDUdCYChvwDvgBrdkB3s QgnjfxRoGMGkZLTRF4GC ZzDAGXRCGSLhSDRLG7EBBYeoDtLtMElqIGTrV09boBokWo51JGmicDXzv2KzSLlszZebre8fg2jlgrqs zLArclHpSSyxY75or4Wk IhHsjHXlkxC1sP9iTcyeCLCvqAZtTRBlYu9fQ6GXKRYICSDHOfTPGC4nIdtTCUORRrcgWCNaTTGqdkHM yaJhIDotzXTto0PcAEet dRhgZfWbjQYhLDJsk1UqquGgB9OpxtJcD1AzyBSxxYD2iTvzCAKwpaJVhtOgv5BpbG3qm8nsBjJhccva KA1nPAVjVrLGFJtzJ98y BUC8GHRzqDtsm4VgTIlrd0Pvk4UxPI5uo46vMadoRYTwqEUeZMDcZl4mU3UKXVVXWRORN3VWF1MZPqBL MrQZN0gCRPRTIL0SEOoi VmKvLVimQBDokOAhYHklKtEtO8b8loShXzNytDNwj3Mdk4q0tENiLFZ8vQSofvJfh56plBY5MA88LAwd jOlrTeEjDZlyAGtsSZ5pQVWtmAchKyrbXBSwhFXiyR==Qohtqureir [facility] Work Phone: Pathology report gross observation Narrative h7fkfOIiEZMlxNJMOSM8NTOkMF7idCplsIn5aTdgTSNxgkN3oQSkDUhyn2mqBOM8f5icfyASXanuDTKq KN2tRMzlFWXuFM3fUgWt ONRbZxLySDYohSYfxyKoQjDhIVSvvHAvrZR0LPRwCD8tgxxqAZcbEMvmXTZkwgU3ITDprQFwR9GaDDXa VS3gdilhGUO1KZZUDewr Vt0ydTAfoLZJHzodEgDrSyPyZMMyGVEdXVAww6bqvePFZOnpGBHAWIn0LEo3BICyIHNoeURjb8Y2TWwy a6spb0HzXOWnRQw4rJ0R XrvtPBV2MLFWXswoOnazpMtnc1OskNSfZJNnBMcrsDSgMFGjJLHaAFvcJwWPCvYqRgGaQpK6ODX6WlIt VPw7DWsjQsKXVUBlQIH5 UOwuTHi6GXksYCsuyZCnWUFyMJKaMISfGUsohbB9o6yrFPJlaTNpMTU2UFbaf3mxRVhhMBS9GJJfXiFv KYVdFY3JJvKiGCVbEcP7 XAw8MfF6QZv0IRMVNaWgXzFkXWN1LwT2IsRvOZu4NIz5FPePLxIpAzj5Zlp7QkB9CVL7WeUoVKlzygcf OZy8ZGPvGKexegEnBVgg OwleQBmhK11rnYGvRHZQUlofnJWenyuprJbgJtDgmKCwHzLmGFdzsJUvnDYgUF6JNKf3krQcESOrPABt QlOcXMzhJFNxL5NuosCn IYbqVPBxft2bzBarESXnMEZkeXWmJKhscPjyaFpeBJAioZjurnRzdwHxFO9fOMYpHPCtz1BdcGEakLDi sF3nGNPcSF1oMFGvOINd gQ6pPH3xjDJocRacFED0FMHoDKDkOlajVFVplrUerSFetAwyvNKaAhTzY01gwbVuDF4oGRRwvbOsk5T3 XWAqw9E7TYWbN9dgWIij sLyfOcO0ftQmYyGbcRYtQiYjzLUgOjQhO56qYIHeNCTbvRYoiY8rwmSarjJqkEBfoXP4UCHcbH0hxB82 eeDlkbDyVECsh2CygRJm WlzyXMAvPLzta9ToKMdrgWszPHPiYlPgDSmWJM8KGdWtOH4XYTPjpCPUXTL6OQ8rIMxmVPTpS2XpF8Jv ebP9QZCogmUSHldcCliw aHwrp5SrcONjVKFiYTabrXExCKBpKLLwBYgkAgJCSzXmUkEiHgL9NRB9AlRoHPc6VVxkU2GIWOTsRAJ2 HoHmUzOfYuA8CKi4XWTG Zy3kDYG1XBm1FISyTEC0TYDcTXOaHI6oGDmvyCZtUPuey5RfIjEuWBFoYDwbmxY5CEIjhxByTCfwaKzj uR9vJJRvG84lw5WIa2Qd HI3MYZa5bgNqkirtPbMvMXdhzPxjKYGbJEU4ER8GLQd5jyOwYWPePQQwYeNhFedvBkDuDPw1CXNzdX7c Vh6rbIZwaL8jKAzgRsQn FPZxq1h1cJS6lLIlqMI6gMOkpJvxIW8wfWDsOL8lDTczy5EoaGHdOD74aSRklmAgzzEdGsDoj4RgyHQx qHGlcoYltF8zWvjsTERn dgWBYJU5xN6vpGkjmABsEJTgyvWkcUPynCFpMiP2VI5wf82hlFZ0jNDacAWdxUHnv3HjxT1vAGNgAbV5 ZTJgRhZ5XDWxCzUlaN9p WPsuTPLoTLKsdQMhOWrySUO5Bq7keRAwCHIcdpX1q8WcXIrlBBQfN0Zgc0Q5oBXdZORgdcXSYplsRZPj BQg8jlNzgoszYRHqSJAs xNLNt8DuUXPBOjtEC3YVPjLzVLjhAIXgW48xz9RXq5Xie4cwqXqic3FkhMJtNS3qdLBaUR3Ug2nuDGMq hXGfXFV7GObbs7icCGmd PTN2SIFeMpPwBTZlRZ8TGeDnNGNpYcO6WAl2OvK6CBo0NTYEWpQzNbJuFLC7AcE5OSHmRWd0IVp0RGgP XdPyJnu8Nzk6CLW3GWH5 LyWuBYfmlsqgWXr3YMYbREaifoZlPIdhJvmjDJvsP73lkGTjKLILYlcslZUzibpxiBjrLnAtaVQpJtGn DQpcbHRycGFyXHNiMTM1 OWMgqHJFd9MmKjWdRBeqrJQnY9wqNiPqPzGhLXAONjDOIIPidMXzGXCludAzt0XtXRpelehfxOJyPFgp TXZ8uVTtTZMxIRUdLXZp JC05F5HtygWqQOLbqfZqsI1irWb2QOqahhIhMkGmCGVhIJZoQxnemJ6wIIBvSAOatNuuIROhi7m6qQXv YXJkaWEiLCBpcyBhIGZy TDdkOO42XF7oSCBmwoVeb7Z7TJKwl7X1IIMhJXXkjGCpmdylRZ92DPgcJB8vVJbcCA0xPKPwVpUGhUXg r2EvN3wiHU1vqNKif8Of lZm5tOMeCTazCRUaqU8ugM6kAVIfWAQvGVE3DP8smVZaUY1UGCFtvoGwjEMkeYNfNUCdCqSvQHSdL5nu BHKrAJ2PX6IuZ2YLQMLO NoxppVsbLvNdcYSmGaB4ZHYvcGKmUBC9ZD8noRmiEXJmP0XgY9YjsyC8AMTsxtBQTgllXOFhUL3CKQEn RAlkHN1GwS==FwocmbyctkBellevue Hospital Work Phone: Pathology report relevant history Narrative t3dpjQYkNLXfhMYzVEpoRhhhfzCzLCQtuYBrA3BdwzzwZBanZO2vPB3mqGtxjBQbmWHaIBAfWeUbg7wc w794lQGbt6jyFYBMvypj cWd3tVglL13th9G9AsosE1fqEDNdCArdKELtCHlaaGHsOAt0PPAopZFnxeNmLhVdGSWkbCXqyXR3MQEb OK4hehsvZBbqURcrVDDs boM6EUUqpZBfX8YoMOPdGC2ogtdmHUU2TWokUAPhKWH3OlNxTQIfg8Eqqny6KiExxMTuOOeciIWoljuv czIwXGNmMSBQcmltYXJ5 LE7pvGmussOveNBaBJLkh2KxOV4ttshtXBEfNN8sgVMptBXzWiBjgK6lCS24nYMqGPGqeLnfSXoPE4Qe GO7zM8BrHUCwoMIpFUEqleOZQoHQzZfgVH71uIMAVwU9wI7udHolJHE4Uinqqmcgva [facility] Work Phone: [facility] Work Phone: [phone] 18-31-521836Pzstcwu's called and said he had an EGD today at in [place]. Before the EGD was completed, she said [...] this along to Dr. San for further recommendations.[facility] FoundationEGD on 07-58-9839AiqmhvepnujdjftznzjlveftcaVegtm formatting from the original result was not [...] BULB BIOPSY SURGICAL PATHOLOGY EXAM Graceliang Garciavach 06/30/2024 0957 2 : r/o H Pylori Tissue STOMACH ANTRUM BIOPSY SURGICAL PATHOLOGY EXAM [facility] Harshad 06/30/2024 0959 3 : Polyp Cardia Tissue STOMACH BODY/CORPUS POLYPECTOMY SURGICAL PATHOLOGY EXAM [facility] 06/30/2024 1001 Procedure Location [facility] [address] [facility] [address] Referring Provider Jeremiah Magaña MD Procedure Provider Jeremiah Magaña MDNoSt. Vincent HospitalEGD Study observation Narrativeon 39-55-2523Xzspo formatting from the original result was not [...] EXAM Grace Patricia 06/30/2024 1001 Procedure Location [facility] [address] [facility] [address] Referring Provider Jeremiah Magaña MD Procedure Provider Jeremiah Magaña MD [facility] Work Phone: [facility] Work Phone: Radiology Study observation (narrative)[facility] Work Phone: Glucose Test strip manual (Bld) [Mass/Vol]on 36-50-3055Iovpujv [Mass/Vol]193 mg/tUWyvr61 - 99 mg/dLUnSouthwest General Health CenterInterpretation and review of laboratory resultsAbnormalUOur Lady of Mercy HospitalGlucose [Mass/Vol]193 mg/hDXnnh44-42WztyefmwpwEast Liverpool City HospitalComment on above: Performed By: #### [id number] #### OLIMPIA WARE ([id number]) [facility] ([facility]) [address] [place], [place] [address]Cbedrqpe pathology studyon 20-44-4710Gfsjkfaf pathology study Pathology report.total SEE COMMENT Surgical Pathology Case: [id number] Authorizing Provider: Jeremiah Magaña MD Collected: 06/30/2024 0957 Ordering Location: [facility] Received: 06/30/2024 1059 Pathologist: Olimpia Ware MD Specimens: A) - [...] is submitted in toto in 1 cassette. /[facility] HospitalTelephoneon 06-30-2024 [id number] Yusef Car 1950 M Date Provider Department Center 06/30/2024 MARGARITA MCCORD EZEQUIEL Arteaga Family History Problem Relation Age of Onset Angina Mother Cancer Mother Heart attack Mother Heart failure Mother Hypertension Mother Cancer Father Diabetes type II Father Hypertension Father Cancer Sister Diabetes type II Sister Cancer Brother Diabetes type II Brother Hypertension Brother Cancer Brother Diabetes type II Brother Family Status - Relation Status Age at Mother Father Sister Brother BrotherNoGeorgetown Behavioral HospitalUH GLUCOSE-POCTon 14-70-8707Uprrwyh [Mass/Vol]193 mg/dVVgdu93 - 99 mg/dLNOHI Healthcare Interpretation and review of laboratory resultsAbVeterans Administration Medical Center HealthcareOriginal Ordering Provider: JEREMIAH ROCA HealthcareOffice Visiton 05-31-2024 Follow-up [id number] Yusef Car 1950 M Provider Department Center 05/31/2024 NOE FERREIRA EZEQUIEL [...] Mother Father Sister Brother Brother Level of Service:50203 ID OFFICE/OUTPATIENT ESTABLISHED LOW MDM 20 [facility] HospitalALL CBC WITH AUTO DIFFon 65-07-5081OXLWXFKXZ ABSOLUTE IXYO9FBMI HealthcareBasophils/100 WBC (Bld)0.1 %Low0.2 - 2.0 %NOMS HealthcareEosinophils/100 WBC (Bld)0.1 %Low0.9 - 7.0 %[facility]OMS HealthcareErythrocyte distribution width (RBC) [Ratio]16.1 %High11.0 - 15.0 %[facility] Hematocrit (Bld) [Volume fraction]44.8 %42.0 - 54.0 %[facility] HospitalHemoglobin (Bld) [Mass/Vol]14.3 g/dL14.0 - 18.0 g/dLSelect Specialty HospitalIMMATURE GRANULOCYTES ABS AUTO0.04HighNOCass Medical CenterImmature granulocytes/100 WBC (Bld)0.3 %0.0 - 0.5 %[facility] HospitalInterpretation and review of laboratory resultsAbnormalSelect Specialty HospitalLYMPHOCYTES ABSOLUTE AUTO1.2NOMS [address] God HospitalLymphocytes/100 WBC (Bld) 8.8 %Low20.5 - 60.0 %[facility]oxHealthH (RBC) [Entitic mass]28.1 pg25.9 - 34.0 pgCoxHealthHC (RBC) [Mass/Vol]31.9 g/dL29.9 - 35.2 g/dLSelect Specialty Hospital MCV (RBC) [Entitic vol]88 fL80.0 - 94.0 fLSelect Specialty HospitalMONOCYTES ABSOLUTE AUTO 0.7NOMS [facility] HospitalMonocytes/100 WBC (Bld)4.9 %1.7 - 12.0 %[facility] NEUTROPHILS ABSOLUTE AUTO11.6HighSelect Specialty HospitalNeutrophils/100 WBC (Bld)85.8 % High43.0 - 75.0 %[facility] Specialty HospitalPlatelet mean volume (Bld) [Entitic vol]10 fL9.5 - 13.5 fLSelect Specialty HospitalTBH EO #0NOMS [facility] Of God HospitalTB QVV147CODVScotland County Memorial Hospital RBC 5.09NOScotland County Memorial Hospital WBC13.5HighSelect Specialty HospitalCLINISYNCNFulton Medical Center- FultonNo Panel Informationon 49-72-0548DumlfivGEMA Mccartney 04/13/2024 12:25 PM L Inj/Asp: L subacromial bursa on 04/13/2024 9:47 AM Indications: pain Details: 21 G needle, posterior approach Medications: 40 mg methylPREDNISolone acetate 40 MG/ML; 1 mL bupivacaine PF 0.5 % Outcome: tolerated well, no immediate complications Utilizing aseptic technique with universal precautions . Pt given injection Left Shoulder SA space ( code 31445 LT) Procedure, treatment alternatives, risks and benefits explained, specific risks discussed. Consent was given by the patient. Patient was prepped and draped in the usual sterile fashion. [facility] CareXR Shoulder - left 2 Viewson 07-04-2231Kghgonx Result: AP and Scap Y left shoulder: No acute fracture or dislocation. Mild subchondral sclerosis to humeral head and inferior leon spurring. Degenerative changes noted to subacromial space consider with likely cuff arthropathy/ chronic cuff tear Metallic anchor humeral head without dislodgment.. Visualized lung dahl clear. Impression: Moderate shoulder arthritis concerning for rotator cuff arthropathyFormerly [facility] Health CareRadiology Study observation (narrative) [facility] Specialty HospitalMLR HEMOGLOBIN A1Con 50-78-3578Lvffetx [Mass/Vol]151 mg/dLSelect Specialty HospitalHbA1c (Bld) [Mass fraction]6.9 %High4.5 - 6.2 %[facility] HospitalComment on above:ADA RECOMMENDED LIMIT 4.0 - 6.0 ADA THERAPEUTIC TARGET < 7.0 ACTION SUGGESTED > 7.0 Interpretation and review of laboratory resultsAbHavenwyck HospitalINISYNTidelands Georgetown Memorial Hospitalrgical pathology studyOrdered By: Spike Massey on 01-05-2024 Laboratory comment Gui (Report) h2hliULmOQCtk2zdMNVcoPBlNrQdToZlJlUoAdognPReEWqxrnUnENmdr9ImW8HfDcOpPBqircKtOSZb UxhffyjoMFVuQML4xdSs JBBeYIrnCQSmAVbmLj6ekDQydFhmFpNpFELzl6jlrsFIWTldMAXXOJm4z8vyZCOfEmO2pWKbCIxgY5hc weSagXEbI3Pvm9OnHVd8 hE44VWXiyL0hfPFgFCnixcSgPcA8WBesPJOgHxN4VLKfwOZcEYXdO6vlSWHsSWjnKLXeCLvskGMnLRA6 mHlma2X1lPPdmLNljCxg VfXoMzAeKlUXt3HcMOo0yIzfN7LoODKfLdW5oKGlJMMbPDsdPUFsUEReycY1jP17KKitfzX4kFEkg5Jy a57xj011dH1fqATqRON1 RZNqDFFtvNGrPIJuOSS9YHGsoHIwD8tmWjUbbVAnX1YaQcWndKLxD6RfIjYpuTKsO2VvZuKjrLCwGGIn jJJ4EOjru520YIW8XdTj TD6xA7Ola4G1sL0dxBMfSPRtzHGcOuMcRWNejm5ukCQvNGetk8GgPNB6vpR3aJFmwBPvRSDtFL33Gnmh t3FcQaovGFH0UNByhqMc e6Imw1lhDzIkzlYbO2rzQ4PdMSClJHXxUJKqLzMfwjAnm0Dei4NroBJqnFp8p9fiCYTvGTTriShpj0vu VJJ3TQIiW6J8sFBkg3rj AEqtUXEftRS7gmJ2NBnsFTVbctG1ebT8PTmzYPFyrZT3jnQ4MLahGTYvPaU2bfQ4SSioATVmEYB7LcFf BJIpm5ZjmwdpFiWyn7Zr jQBvTVapQ97vu552XPBcgeWnS9hykAFmzwkvlNAtxlquIPdvqjT9EZIdKOOmXJkpFEQhROPlMpMrqXCg ZzEwMzNcaGljaFxmMVxk OxXqHUClHYnrS7jyZmGaPwLdAJBVjXV1yLSjr9mqbmZ4zOMdOO9tKKSzdOPcgpXxo3O7ILM7gDBqoA3r jXOwJOJkiQHemqZagx04 cPVllIZ5SQShEKSrbXVsbV3rXCEuGGJEfU5xbIFJmgMmrfQqJNEtpNqaeq6PyOGrhz8jqLSqU1XbbDaj mHRoGRGvCWHzaGspzKHlQDMiEQJudtbdu2WqTLZwoOFvM4DrPJ4uZMKpml42Bgghuqahsu [facility] Work Phone: Pathology report Cancer NarrativeSurgical Pathology Case: [id number] Authorizing Provider: Jeremiah Magaña MD Collected: 12/29/2023 1332 Ordering Location: [facility] Received: 12/29/2023 1426 Pathologist: Spike Massey MD Specimens: A) - DUODENAL BULB BIOPSY B) - STOMACH ANTRUM BIOPSY, r/o H Pylori [facility] Work Phone: Pathology report final diagnosis Narrative p0whrJCcKWHmrOFsMLmsXurggkPmJOMnbLZaT1OccxzyQVxuDT1xWL8piIsslXNatIVfSYIbAaFct5di u886qEZgv3qxVYJTlrfw jXv6kOqhL44ot0Q5BywzZ6grRMWnMPxuCJHbPQwazEIaYOb3MBGoaYBswuWkYtYyQACmnCKsbQK1DLOi SL0prppnVJqhYBlbJAKj qrX6RWCqnKStR1JvEZAnSX5mgcsaZOG8RVzaAIKfUAU3SdHzFKFde4Hutob1BoHbyKn7m3wpYTBrKMHh rHgob8reGEO6STCwsTOj T2rmkS7fCFSeKW5lezcfi1kwHGuoZPhpHQWtbQC3puJ9ZIKwnSPqB6NncB9pLBJhCDFooeVlcFxreN4w HixmlbPlYFGjZJYKI4OL GcMMEUQSRSEfBPULK3JXPQypZ00YPEoeOI7YXNCKZI5YBWPCECCHG8HkO9eGUGHFZFqPQHWNTIiLPZXM IQ7TZY3WMCvGPBWSUFIq Bp6KJB4toOGpPCYmkwDFh0BpFfYRkIfuQIEgpwOdixheuQObdd0vz9IsN3fzgCFncH4xnvB9wGSoIZJw ZCBtYXkgYmUgcmVsYXRl TYH6hzYmRUTkY6Y2bL8vWWAhVaUwkEmmbbIxl1khZYBfOIIfQKtvyRCeo24ekDQrk2beJNpuZR25fY8h ajYsOI8jCEAsbczkHOL6 N7JnWN2aIZkvQ4lyYMNoDCBuuPDeiRTjzF7utMVbrNizlWkvam2wfPFkELMngkHNIiDNNX4YTZUVXOZH YLKVEMXOEK9QO1e9OJYS HMNKCBUDFRbEJ3ZZR5PLITuZJEyFMQquFSSFNZCMXEyRTtcABF4YANgUEuviI2IJHI0QLYZtGACejrhm KKMtKy86DOaoVk5olSchki7degdkdtybyFMsJVXzXRbpVP42yARlQSJoPTRaZBMpVWScKDEhzq5= [facility] Work Phone: Pathology report gross observation Narrative t4kviFDnPKIozVGKUKU5KGLxOR8oiClyxGb3uWoqESTnffF3kDAjTYbjt5vlEYC3d0qlqxKMLdnhADWi QJ5dGJrxXLFnRO9wXhAa JAUjWgViIONwvBVujrWlCfBiPIZveIUudKA2HDExJF5tbljmIFseLNogSGOblgX7QBNvcKQoS0LmWMJr TI1tjcocGNC3QOSGGmwb Ok9ydAUpyGGZBgowWsYuQeLyQTEtBNLtLDAcm9dmdwYMOAtxUAIHNSx3TCq0MTHeGQOjjEHqj1D4GGis g5cle5YtQPBdYCf3aL9S WeldHJH1VPSPIiboZeunxOnux2JxpBBwRTTuEEollSJkPHYrAFCgOEnpLbINKyXiZiCfVPD1Snr7PlTp CDf6JKzhQbLTLMX7ZLG5 IFPvRQi6WRvlXJtzsHFpYUHlSSTdDSYsECtpaoC9w1srHASxzAIbSKN1QEtvr8ncLRckXES9VWTzBcXw JNGwUD4UBlSmAXQ4ELIx Dgm8AlR3ATj3THOPChXgVtBoCLG2ZHx0DMPnISj0RZc6HOsNNjZ6TbcbUBDiZATwIBX0TKNiJIzrwCDu XHQgMiBcXHNzIDMgXFxm uOCiUN6cyBkkDWRjEH4OCFAmGDufQDUtjRLBTOP8RL9fTSXSYkohpOOdWCZyBAtinMNsC4uzBeTqFtLc MCBBOiBSZWNlaXZlZCBp ryErn1GpPDknockgsVXsNUewURM6fIAsDTCpQEOwJNCiBS06D6WxhzMpFRKkbsRymR9cyXq8PWcyknWb YmVyIGFuZCAiMSIsIGlz GZHjWlUvA54zaoSko2HkkZGgMFUxd6P8YFQgi3O2JKOdPQOlmBJdfqkfMZ40LCjhAM8uKDvqGP2kINZl LiAgVGhlIHNwZWNpbWVu GFpfRNX4Cp0onKWmUKZkcpX1t2PdFUsbNZ6bBFIkESUrXCA1RE6wfZQbLO3VMEGcSkFxZXXjY9zsIAIt IR4PKuVNGIcoCWOoX63k g9IBu9Gvm4iwqAeqo4AgoDNiDI0zlRItAN8Jn2bjKDYrsWPyNGJ2BWwpu6ljXHgpRMA6MDNiRhLlZLCi CC3NTqKlVTY3JUVjLbq7 ItR2VPf4PKAAIzHrHiNaVIH0NDb3VZJtKSa9GFr2JFbNOrW7InvoGXFkBhOpLUN7OMJvDFyraGHmMGAt MiBcXHNzIDMgXFxmbCBc TT4caAlsPRJkJO0ZURIzROnfBZElrHCRVUN2AJ4bBLGXNbhqqRKgFMQqk2ZnTuNhBVLrP5gmSyBzRBQA ClxsdHJjaFxmMlxmczIw INZ2JQTpA2OrtdSbQMwqBUDvog8fnZclNTVuWLTytCXcNVezgYqnlEwkQVNlmEywkpPaztIsJE3rPQNd KWVmi5SxgWZbwEQrbT5v NIZpYX7mPTSeIwskOLByAU72zSTrvVwzXKRpGWkqGN44xuElCiG9VU1tXKCoZmKanBnzs8ArBWXaE2Nv R1A2qR6fMOToOJQyLrH5 SVQmQBM9ZXRfTUOgnE4fPGfiQOJqGRPwwTRtCOihQDI3Ua3lrDThJSMmrpX6j0WlGHzqMP9oFPTbPSEg MNK9XG8orXRcOM7NLPSs rhBkxOXkrZLnRXAzVfLePDZpI5vxWMCdPM4UIwIZVNnuNICgJ87nd8PTa3Vnr3yrqJcmk2TszZWvHP02 XEGjmCBpWOG1EK6rjVswLPMvLXqzjXMxVHRJChmwcQFdbvUCQy7=[facility]dc[facility] Work Phone: Pathology report relevant history Narrative i3nmiGFlHQTcwTQbQMpsVeqipoMgTRTziUAhL6GgmmanLDfnGW3fJG8pgEbnjGXjwICiSULxFuGrz1uw g670cDNff5jiSNKJxqox wKc9aVadS23yt8L4JbjkA25azFXeAJW9NCYpJOZajNUdENVrVMF8VTAmhWTxX8ogLGDhCP6fhtjeNWfq OKseUFTegMU2BWMbxFEk X9MlISUrFJtrHDKjpcj8LdLdUn4cjGPwzLwfYEzeIOTvFQAaYSasCPNmIfNjSobjEsWrLAEeqRTnPV8Z eWxvcmkgXHBhcn0=[facility] Work Phone: [facility] Work Phone: CT CHEST W IV CONTRASTon [id number] CHEST W IV CONTRASTInterpreted By: Lul Carver and Maltbie Grace STUDY: CT CHEST W IV CONTRAST; 12/31/2023 7:55 am INDICATION: Signs/Symptoms:LUNG NODULE. COMPARISON: CT chest abdomen pelvis 05/26/2023 ACCESSION NUMBER(S): [id number] ORDERING CLINICIAN: NEFTALI KNOWLES TECHNIQUE: Helical data [...] Morales MD. This study was interpreted at [place], [place]. Signed by: Lul Carver 01/01/2024 9:17 PM Dictation workstation: [id number] Surgical Hospital at [facility]woods [id number]gixxEzqmj formatting from the original result was not [...] STOMACH ANTRUM BIOPSY SURGICAL PATHOLOGY EXAM Grace M Harshad 12/29/2023 1334 Procedure Location [facility] [address] [facility] [address] Referring Provider Jeremiah Magaña MD Procedure Provider Jeremiah Magaña MDNoSt. Vincent HospitalEG Study observation Narrativeon [id number] formatting from the original result was not [...] EXAM Grace Patricia 12/29/2023 1334 Procedure Location [facility] [address] [facility] [address] Referring Provider Jeremiah Magaña MD Procedure Provider Jeremiah Magaña MD [facility] Work Phone: [facility] Work Phone: Radiology Study observation (narrative)[facility] Work Phone: Glucose Test strip manual (Bld) [Mass/Vol]on [id number] [Mass/Vol]147 mg/gHIipq14 - 99 mg/dLUnSouthwest General Health CenterInterpretation and review of laboratory resultsAbnormalUniMercy Health Perrysburg HospitalUnSouthwest General Health CenterGlucose [Mass/Vol]147 mg/cGKczs70-57NoszsorgkxNewark HospitalComment on above: Performed By: #### [id number] #### OLIMPIA WARE ([id number]) [facility] ([facility] [place] [address] [place], [place] [address]Vmqmevxr pathology studyon [id number] pathology study Pathology report.total SEE COMMENT Surgical Pathology Case: [id number] Authorizing Provider: Jeremiah Magaña MD Collected: 12/29/2023 1332 Ordering Location: [facility] Received: 12/29/2023 1426 Pathologist: Spike Massey MD Specimens: A) - [...] and 2 , are multiple fragments of edal, soft tissue aggregating to 0.6 x 0.4 x 0.1 cm. The specimen is submitted in toto in one cassette. RCCNormalUniversKettering Memorial HospitalCBC W Auto Differential panel (Bld)on [id number] (Bld) [#/Vol]0.04 x10*3/uLNormal0.00-0.10 [facility] HospitalComment on above:Performed By: #### [id number] #### OLIMPIA WARE ([id number]) [facility] ([facility] [place]) [address] [place], [place] [address]Sbsnyoplo/100 WBC (Bld)0.4 %Normal0.0-2.0UnPremier Health Miami Valley HospitalComment on above:Performed By: #### [id number] #### OLIMPIA WARE ([id number]) [facility] ([facility]) [address] [place], [place] [address]Ubcwpiclomu (Bld) [#/Vol]0.18 x10*3/uLNormal0.00-0.40 [facility] HospitalComment on above:Performed By: #### [id number] #### OLIMPIA WARE ([id number]) [facility] ([facility]) [address] [place], [place] [address]Vfslwqqyihj/100 WBC (Bld)1.9 %Normal0.0-6.0UnPremier Health Miami Valley HospitalComment on above:Performed By: #### [id number] #### OLIMPIA WARE ([id number]) [facility] ([facility] [place]) [address] [place], [place] [address]Eiiyoyaovdp distribution width (RBC) [Ratio]16.3 %High 11.5-14.5UnPremier Health Miami Valley HospitalComment on above:Performed By: #### 13700-7 #### OLIMPIA WARE ([id number]) [facility] ([facility] [address] [place], [place] [address]Llurmydwja (Bld) [Volume fraction]43.0 %Tiegpm86.0-52.0 [facility] HospitalComment on above:Performed By: #### 29058-9 #### OLIMPIA WARE ([id number]) [facility] ([facility]) [address] [place], [place] [address]Rsuelgkdtx (Bld) [Mass/Vol]13.4 g/dLLow13.5-17.5UnPremier Health [facility] HospitalComment on above:Performed By: #### 57777-2 #### OLIMPIA WARE ([id number]) [facility] ([facility]) [address] [place], [place] [address]Cyvfwyhq granulocytes (Bld) [#/Vol]0.03 x10*3/uLNormal 0.00-0.50UnPremier Health [facility] Valley HospitalComment on above:Performed By: #### 42595-4 #### OLIMPIA WARE ([id number]) [facility] ([facility]) [address] [place], [place] [address]Pqcjaugr granulocytes/100 WBC (Bld)0.3 %Normal0.0-0.9 [facility] HospitalComment on above:Result Comment: Immature Granulocyte Count (IG) includes promyelocytes, myelocytes and metamyelocytes but does not include bands. Percent differential counts (%) should be interpreted in the context of the absolute cell counts (cells/UL). Performed By: #### 29136-7 #### OLIMPIA WARE ([id number]) [facility] ([facility]) [address] [place], [place] [address]Gtunoozfais (Bld) [#/Vol]1.72 x10*3/uLNormal0.80-3.00 [facility] HospitalComment on above:Performed By: #### 01436-9 #### OLIMPIA WARE ([id number]) [facility] ([facility]) [address] [place], [place] [address]Aiszgttiwne/100 WBC (Bld)18.0 %Jznive85.0-44.0UnPremier Health [facility] Valley HospitalComment on above:Performed By: #### 76219-8 #### OLIMPIA WARE ([id number]) [facility] ([facility]) [address] [place], [place] [address]TKF (RBC) [Entitic mass]27.8 qgHojgjn07.0-34.0UnPremier Health [facility] Valley HospitalComment on above:Performed By: #### 71673-0 #### OLIMPIA WARE ([id number]) [facility] ([facility]) [address] [place], [place] [address]IZCR (RBC) [Mass/Vol]31.2 g/dLLow32.0-36.0UnPremier Health [facility] Valley HospitalComment on above:Performed By: #### 85571-4 #### OLIMPIA WARE ([id number]) [facility] ([facility]) [address] [place] [address]IJP (RBC) [Entitic vol]89 zRYzjczw96-637QwqzpjgvawPremier Health Miami Valley HospitalComment on above:Performed By: #### 90390-8 #### OLIMPIA WARE ([id number]) [facility] ([facility]) [address] [place] [address]Fidgxtxxo (Bld) [#/Vol]0.75 x10*3/uLNormal0.05-0.80[facility] HospitalComment on above:Performed By: #### 49202-0 #### OLIMPIA WARE ([id number]) [facility] ([facility]) [address] [place], [place] [address]Hjcikpjdl/100 WBC (Bld)7.9 %Normal2.0-10.0[facility] HospitalComment on above:Performed By: #### 44680-6 #### OLIMPIA WARE ([id number]) [facility] ([facility]) [address] [place] [address]Qnmxwnniwqe (Bld) [#/Vol]6.83 x10*3/uLHigh1.60-5.50UnPremier Health [facility] HospitalComment on above:Result Comment: Percent differential counts (%) should be interpreted in the context of the absolute cell counts (cells/uL).Performed By: #### 50092-6 #### OLIMPIA WARE ([id number]) [facility] ([facility]) [address] [place], [place] [address]Onhomyzuprz/100 WBC (Bld)71.5 %Ocdtmi92.0-80.0[facility] HospitalComment on above:Performed By: #### 01273-1 #### OLIMPIA WARE ([id number]) [facility] ([facility]) [address] [place], [place] [address]Ecdoztqdx RBC/100 WBC (Bld) [Ratio]0.0 /100 WBCsNormal0.0-0.0 [facility] HospitalComment on above:Performed By: #### 14872-7 #### OLIMPIA WARE ([id number]) [facility] ([facility]) [address] [place], [place] [address]Nereltliw (Bld) [#/Vol]365 x10*3/xQZlvorw066-920YfxquldumbPremier Health Miami Valley HospitalComment on above:Performed By: #### 11080-2 #### OLIMPIA WARE (22203) [facility] ([facility]) [address] [place], [place] [address]RXZ (Bld) [#/Vol]4.82 x10*6/uLNormal4.50-5.90UnPremier Health [facility] HospitalComment on above:Performed By: #### 09580-0 #### OLIMPIA WARE ([id number]) [facility] ([facility]) [address] [place], [place] [address]LRP (Bld) [#/Vol]9.6 x10*3/uLNormal4.4-11.3UnPremier Health [facility] HospitalComment on above:Performed By: #### 49325-9 #### OLIMPIA WARE ([id number]) [facility] ([facility]) [address] [place], [place] [address]Jdueagyfifhly metabolic 2000 panelon 67-43-5735Kstnoxi BCP dye [Mass/Vol]4.1 g/dLNormal3.4-5.0[facility] Comment on above:Performed By: #### 04347-7 #### OLIMPIA WARE ([id number]) [facility] ([facility]) [address] [place], [place] [address]VZM [Catalytic activity/Vol]94 U/AVosdrm38-160MxewfbyqclPremier Health Miami Valley HospitalComment on above:Performed By: #### 28341-6 #### OLIMPIA WARE ([id number]) [facility] ([facility]) [address] [facility] [place], [place] [address]BMA With P-5'-P [Catalytic activity/Vol]15 U/NRvaalp68-82 [facility] HospitalComment on above:Result Comment: Patients treated with Sulfasalazine may generate falsely decreased results for ALT.Performed By: #### 88959-3 #### OLIMPIA WARE ([id number]) [facility] ([facility]) [address] [facility] [place], [place] [address]Hnimg gap [Moles/Vol]12 mmol/RJxevin05-10EadfavofwwPremier Health Miami Valley HospitalComment on above:Performed By: #### 39127-8 #### OLIMPIA WARE ([id number]) [facility] ([facility]) [address] [facility], [place] [address]EIZ With P-5'-P [Catalytic activity/Vol]13 U/LNormal9-39 [facility] HospitalComment on above:Performed By: #### 33442-7 #### OLIMPIA WARE ([id number]) [facility] ([facility]) [address] [facility], [place] [address]Hhnwkmyku [Mass/Vol]0.4 mg/dLNormal0.0-1.2UnPremier Health Miami Valley HospitalComment on above:Performed By: #### 12151-0 #### OLIMPIA WARE ([id number]) [facility] ([facility]) [address] [facility], [place] [address]Idjyxcj [Mass/Vol]9.6 mg/dLNormal8.6-10.3UnPremier Health [facility] Valley HospitalComment on above:Performed By: #### 08538-6 #### OLIMPIA WARE ([id number]) [facility] ([facility]) [address] [facility], [place] [address]Pcxucvaf [Moles/Vol]104 mmol/DMsiynx42-016KonaaurjocPremier Health Miami Valley HospitalComment on above:Performed By: #### 23874-3 #### OLIMPIA WARE ([id number]) [facility] ([facility]) [address] [facility] [place], [place] [address]OJ6 [Moles/Vol]27 mmol/IZrlmio28-27RzuclcguwoGrand Lake Joint Township District Memorial HospitalComment on above:Performed By: #### 21846-1 #### OLIMPIA WARE ([id number]) [facility] ([facility]) [address] [facility] [place], [place] [address]Ieqdpxrwpu [Mass/Vol]1.18 mg/dLNormal0.50-1.30UnPremier Health [facility] HospitalComment on above:Performed By: #### 08032-7 #### OLIMPIA WARE ([id number]) [facility] ([facility]) [address] [facility] [place], [place] [address]Aeskxudrrw filtration rate/1.73 sq M.tgbzowyqf87 mL/min/1.73m*2Normal>60UnPremier Health Miami Valley HospitalComment on above:Result Comment: Calculations of estimated GFR are performed using the 2020 CKD-EPI Study Refit equation without the race variable for the IDMS-Traceable creatinine methods. https://jasn.asnjournals.org/content/early//ASN.5095593900Vipaupgik By: #### 56356-8 #### OLIMPIA WARE ([id number]) [facility] ([facility]) [address] [facility] [place], [place] [address]Aixjmqa [Mass/Vol]171 mg/vRVcqf63-51GmqqcyaxrtPremier Health Miami Valley HospitalComment on above:Performed By: #### 41262-6 #### OLIMPIA WARE ([id number]) [facility] ([facility]) [address] [facility] [place], [place] [address]Vlvmvymdm [Moles/Vol]5.0 mmol/LNormal3.5-5.3[facility] HospitalComment on above:Performed By: #### 81345-6 #### OLIMPIA WARE ([id number]) [facility] ([facility]) [address] [facility] [place], [place] [address]Ghiiiah [Mass/Vol]6.7 g/dLNormal6.4-8.2[facility] HospitalComment on above:Performed By: #### 83557-0 #### OLIMPIA WARE ([id number]) [facility] ([facility]) [address] [place], [place] [address]Zgyrjv [Moles/Vol]138 mmol/ZZydjrh529-042PkalmahlcpPremier Health Miami Valley HospitalComment on above:Performed By: #### 06514-5 #### OLIMPIA WARE ([id number]) [facility] ([facility]) [address] [place], [place] [address]Vjwk nitrogen [Mass/Vol]23 mg/dLNormal6-23UnPremier Health [facility] Valley HospitalComment on above:Performed By: #### 54250-5 #### OLIMPIA WARE (53665) [facility] ([facility]) [address] [place], [place] [address]XTU & Creatinineon 18-75-5805Hjrodqitqz [Mass/Vol]1.28 mg/dL High0.66 - 1.25 mg/dLWYANDOTEst, Glom Filt Njzi03Jay- PINFWYANDOTComment on above: GFR calculated using CKD-EPI [...] pathology study Ordered By: Gilda Ricci on 86-92-5438Dubiqdyknc d8ddzPNaFRBqzPWkKkHoTKYyAGMgd8olEMOsiDKsTnSnXiIvMcOcMplynGDoQKAdBxVmv3svw176yUIv q8dqISNyHxK2cIJhBPMd jRknazh4yFglZbCgSQGjq1lteiKiCnBbFXPdKXPuWPKjwFwmnew9dGkqIlGeOAWblPyuGQVdPBv1aN36 XEKthW0riBDvBXsbccFp QqE0ZZbwZLFrSsJ3AXBqfDGdKGTqC2ftCKHoPVhkAJEtYQvqoUYuUSP0xVdkp9N4lITftKUbfInqEvVl FoNlVtVAc3VoNNa4rNrw F6WtTAKiNbZ2cFWiQUInOEvcRUQhCACwuaK8bUnbabMyy07gvXZvGWWtLOMsAjMnR66szn1euN60xC61 WYcdhrI5cQFzy7Hek24k i530fJ7yoCSiLON3NHKpTDZxoKYlWLOrKHR6STAqjRMfG2deIAFfDU9imcsqQNtgOPqqWJMcuDZ7ZDDe pOCqS9OiEJSnJSqcKBPx jmy5YjHnMa1fwCRmeEyvFPpup2kxs0xqpHGpCsl6IIQkNdJxSounNTdpd8Pzg9bcEAAosd9dPRT2pTCh cXwnj0W5kQVhHCGrxQAp usNeDTSjOvT5NIjmPQ5bfk52HAKmRVO3uu7epYHnaXpctdGnyYHmMUgtK4HsQYCay191ZYFxX0ZhTWFj o1A3hsUhWsFhBIWaxAP2 pbD9JPPaRYq3gDNssqW0jhRorOKpF1kjkK7iTOUxOE9glnibz8qlPReqYFiuSFYrwFX7rgK7AOTbkCCw O7PhzX8qALMyQCxrWVWr mhs7TpKvTy4wlSShlEnlODtpUzpiZWpxZEXzwoPdakCsuImuOPNgHTAqQEwhAEEuUNinPJTlEFVxXbQm tSHyNHpvd6ZrzuPulRie DDKtVZN6SvS7VET6NBZ2NFs5fMImSeDawPgsKIlyKOW3VwNiPOv2sWGkQmGnaBf3ZXAjRVH4KEv8EEt2 jKQ9AOQxkVe7JwZkZDZ8 OwjrKUh3iDf9ZJPfkHi1MmJbEAF7ZABcDWAgvBtfnXkghX2aJqKkRhOgZimcEU9uWKXvP6fblTXgOWBv SIUjC5liSlVznV5ltAmq UMnpMsBwLoNwWlCBufMno1DwoD7fTFEfNnO6sTKzhfXnY1YisPTphPTpKXQ9lkMsHACbh0AqSXWyh1E8 txMoitY2rWivLZQcERKn pRUySV4EUKYqZUNyIKUsshDdqQ5mAVUpw75rw16tyrXnAPHfhaRbFNGdVYKwgL6wWiCqFT7wjBv1QMEq zIHvbBRbOxIwQXPmST37 vlTnFTOHT1InYjHqKZSVY0MobXW6DDVpx3ViZwMaeaYbcXSduvSwWN8bQZJuyHNnpwLiOMN7SSCiQYJK LlPfWXThd5ChOH3fUKNa qNjtTNHmyV1lf7NwUOJki22zAOCTwQPgJNOts5GubNZec0TzGPZeSFHclN5xDGWxPL8cQDZcSUhrIBWd zgTdtu3ftdPdZALvZJGy R3PymuzmiDwjxnDoCFErzy2nwmLfLGQ6AOBsWEUKJTRztvEfAC09FE1kILNfeJrhzT4tpNMcjNXRbfg0 GSEzwIC9RVrcc7QzeBKh ocOUfXY8NZtqlsRpOCDqxUVxaVXPWG27SCCvFWZfRWXLONFtBC4qkjInp6KbkrRshZxpDEY7oYjzYQKo w8NjuP6jA48ovRdvv2It gNBybsZlJXJlNPIlXoVDJTKkzdhjqx0uSXoyjuI4GBT1FAeaTKNrSBXnTo7cANMdcV3fU9EcRTB9xoBn z0UfHlYDmVPolK62sWIk wx94NIDoGCQzB8EzBTQdWPSrEIobwqQerRexHBSlb61qzIZprbIkd8BqfjObMPSeF5cqZEEeyGJfpGEv o1ZpgD8cyVRpsvJjDBM3 yUCvWCFgnD3dJBLhoHrrVDPteU5oS3HtFMrpKd4qBCBqveivGJ1xss78II8frfTbIP9gfzGeJM83pvVo C2wMTVcwYEImgVQfbJpn xURnWUAzIFEhjsYjxw0opVqibOTpp11ekCA7nGT0NFHeyM8qL0ZmZHiiYe7yIXSoxugeuNNrhBfxWh3w TRCkKKYrq7UxiCQsa4Ay BGTxKFNae7IrMFSpk1r8uWZshKTsv0SvqTZ4WTEqw7TelQk1IIMelaTthcGqEHUjbrPuL63xdKGgcMYh v5owS6azv2UqjT3hAZHgkBSex4RwhNC1HDt1VjkrXQU0Lmmujgacom [facility] Work Phone: laboratory comment Gui (Report) c1eopWYpCRKsy5xoVDTznJXlVpQaBqYtQiJkNafijMXxTAwtqpHcIQovz6KaW7ZwNqBmIUxpebFqCFHb JfwkcppbJEYgPAD2vmEp HHElQAxlKVCcZIfqOf0pkGAmlJvjJkKhTCXes2qhgtVCKWabQNWOQNc2q2spRODhEjS0rHFkGEtrA0tx itItfUVwP0Bby8WwIBs8 zZ95WKTkxX6blVZvQYlpioFmXaQ6ZYjkQQLcOcM3HLLraZVtETQdX4ypJZIxCGnfFKElMZcdvGMdQEH1 bBwnw5X5pAZmeNEltJmx CzYzYvEbKfHFi4MiBPx0nBlcK2IvWDDsPnV0gOMjHGDyDMooGCBdXQYcogA6iH97RQifovA7cKVrn1Ze j70cp090nR1qeMJfOJT6 BIKfDSZbbNAdEMRzBCL2CDVfvBCgM0qpZrElcBOiO9VaCdMmcUCcJ2AsMmKpxWRtL7KoMmVbyIGyMHYm vJH9ITxbv313OEP2RcZv QV8bN9Lmn7M9pF6gtHObLFPfxVMiUjAsOGUwkc3dyIFmICnlo6AcNRX4cdJ3uPSzaJAcFZPoAJ52Crfz k1VxKuhmLDH4VYNndcSx b8Hfz4bvZfLnacWrM2xjF7MwOZVkSNWlAEIyMwAoxwGyd6Mpl6GwrMQbxHn3u9bgQFKuQLSmcYyuy4wr KST0TLVtT6S9uZQvv4ty HEyzMPPzaUH3epJ5GSiwOOSetkZ1cdD9LOkrSUEtbYO2brC1IJogYQVrEwA2eqW8JLvbIYVfQJU9FuBi OGMkn2VczipsSdWpd2Lt mVCvAEggT58tv421UOUypcUaQ1ymvZCeuppwrMWqgwwfVUvzjmF4FJEfQCZoYOdzZMQfRPHdZmXljVXj ZzEwMzNcaGljaFxmMVxk DbDtNBYbKQwjY5dlVbYaNnEoXTJRaCM5aQCsm4jbaeI5aBDiZQ1tVLCusKItugBpz6B7TIL5uPHtcR7r gGKqMWQoiBUqosQujh34 mCNmtUR1ADDrCUXotULvuZ1oIUXhMTCIbG8vrTJOvpMgxbUrPGNqdNlfna5ThCAsql2puBPwC0WroGoy hHDaUMPzBHJviNhosANmRZHuNQYclcduo5RzSHVeyFZeS6LmCB1nTDVzaz65Ruemsqhwzb [facility] Work Phone: pathology report Cancer NarrativeSurgical Pathology Case: [id number] Authorizing Provider: Jeremiah Magaña MD Collected: 10/07/2023 0811 Ordering Location: [facility] Received: 10/07/2023 0942 Pathologist: Gilda Butterfield Asa, MD PhD Specimen: DUODENUM ENDOSCOPIC MUCOSAL RESECTION, Duodenal Bulb Polyp [facility] Work Phone: pathology report comments [Interpretation] Narrative s1qpcJGiAVZutCDxKKQbL5wlhxQdLAWefIEcY6IgukrlYVwqMR7sLO5faZhlaBEnaROvLFGkOsVrw1qz n759zILyk6teAOQQqgfj uCv6eRqlE03lv0W9WozyK05lvNBtXDZ3YLObGALjeIPxDQKaIFP3YHMptTPlZ0hmBJEfFM2smafqUYdi AJhfFHQtsIJ8RLKezLTq S9SlDPBmDGqhVGQazgr3EvAqIy3uzYTcoXgnDJeyQWHfAWOvQOkvSGSuJaYtEAmjQVHeh4YjnDEcdX24 cyBleHRlbnNpdmUgYXJ0 GTOlZ3LhXeL5UBF9DCazlwBnq6TiO6eqy58pS2NtzzewJAEipnInxo1gVAAid4AlGVtjYSgsxRQkClQ9 sC2aZQ6jUJSyw9n7wDMg HTAwqAbdLZomdXkswaG9tRFdyUDkl4MtUyUOqOBeMWBykdBfimKnuqxmBV7eYKCvAzMwXFEzSDAibWOp IUArd4GrWV6bqmybSNX9cL1jewRlelE4cCpfEHBrESQngIEuNztmMTI7Cayuukvnee [facility] Work Phone: Pathology report final diagnosis Narrative n6ktyGNnGVSwiNLjDQJsY5vycnCbEAJumCUiU3GuycjgVZszEX3hGX0wyYdjxONfrKSqDYGcVmUol6pb l084sEHwt0zvBPORwwzj nCq2pXfaC93fl6Q8MnfhV60qtDSsFBZ7FLNiTZGktQBxPRUwQDE8UFBhxBSxJ1ouCTUlSV1hdzjbHGvy HIqlZWGheVF8VSDhvNCp R4DbGKHsCGqzJDKuokt1AjZpLb9xwBQzhTcpFBhnI7ccfD8yKvW5GEviG6nvjU1gYIj1ZWuiSSUfwPI3 znU3AKLwaERfZ9AbeH2h BSTmJU4jizb1c2rzVEU6KSteSUDhJtT1adK2PDHkxSDfSRisvLYzspoyBOIwlkUPwxJtFECro6osT3qa NKejBCjbA57rc8tcCdMO iL1tFD99nHFiIjSrIoisHO4tz3Jnn2ZvUeWlfKPyj6RgRPEun5SljSobiuepPMS7Taydxcyjrj [facility] Work Phone: Pathology report gross observation Narrative m3dvuWSqGBWpvJHiGNZiC3teduFqSFHxrBLoB7KmhapjSPejHK0tMW7skMndfUCctRFpIKMbBmWxi8sj k385qHGan8swCTRJpjgv eKe4iIayJ85qk0B1NwaeY00vkRCjIAT5YXIcKJMjrCJiAAItCHP0XXCtbNBkV3bwRSIcEU4bigszTHwk SCbsPYEafKR0KMGplJSl W2KqMMPnNXgeDSSynqj4YaDyDr4cwDVxgEaoBLviAjqsxSzws1DowYVuYUwjIBLpRXUqMHwvmebmYBr2 TYCeLIwbhGDfYY6znTnw GfaczEndw2ThvFRtHXbpYMSaKRZqZNrqJNSdK4BFNQTlUXFvEnV3JFZmVRm0ZKp9CW2RLbQpYZHsOHQe Omc1PTCvEBl2WNneJI8I QWH7MqTuQHX8PtA5GNK0DqUsKV7kFEosmXQxVFsvv6LjHtOgCMArAUfmgkA5KCGiwcYzm0HmZRuxwFkw CLPbLbXirWqkwW9wJjGi UDQAOTFviRWmNYZznaGjp2QqGPnlmfgafQWoHYwnZAQ9oAGeKGHnAQPwKYLhYU74T0UobzHlWOLzqzNo lH0kkQt3JBoinyIuCjYa FGZuLHIgIVAmCSDqONKthDd5oLUsWFWzasRbgCQnoTDje0ZwzDUxGVHsKiPykRsmm5YoIASxJEAciZDw j5CtHVXlDeIkrJDhDxPg xCNmAeSdL33brY0nHMacbzEiXTIgDnOAvLOeg2PgA0aoLB6nmOQoq2UdbNs6hWKtKCsmQCQyfQ2chO9v RtJvMPPiFQP4QOOjVFDu uullIJFlBCCuFbPaWGBwI6sxQLYxNULDo0ausOcxp9HnaJAiGJ55KSPptQNsIGJ2JH1glLcaLBK6 [facility] Work Phone: pathology report relevant history Narrative f8pmiKKsGJZttAJlJOSuW1wbriMeGGIfhABgZ2UkivqfUDjwID8yLE8blUpmyCJleOEyEOYePsOpv8xv h412gBKoj1klVLCImavp aIu4iPmsM01qe7I5IrclL3tzNJDcWTgqVLNjKJsgcLLgCDe8MMCygHOjdhKnCyRgXOCllFPgvUA5FTBl RO9cayzwTNceYMwiPINp xnW6RFCzwUHyM4FdRVLkXP0lbsocRUI2UJufFKNiNUN8HcWiLYUwj2Dxako6LyWfvEOcBPgzgROhdqux czIwXGNmMSBQcmltYXJ5 HI6jvLofkkTrxNEsJBZxl6HvES0xjqgtDDMcSF1daMLixAHtIrRvvQ0dWC00sDKpPPJmbVndTEhAA8Sz UQ6yB9JeJQDbkUHsbA==NblrkjdqerBellevue Hospital Work Phone: [facility] Work Phone: eNDOSCOPIC ULTRASOUND (UPPER)on [id number] ULTRASOUND (UPPER)Table formatting from the original result [...] EXAM Mayelin Page 10/07/2023 0811 Procedure Location [facility] [address] [facility] [address] [place] [address] [facility] [address] [place] [address] Procedure Provider Jeremiah Magaña MDOhioHealth Riverside Methodist HospitalEndoscopic Ultrasound (Upper)on 53-09-9049Rzjoh formatting from the original result was not [...] EXAM Mayelin Page 10/07/2023 0811 Procedure Location [facility] [id number] [place] [address] [place] [address] [facility] [address], [address] [address] Procedure Provider Jeremiah Magaña MD [facility] Work Phone: [facility] Work Phone: Radiology Study observation (narrative)[facility] Work Phone: Glucose Test strip manual (Bld) [Mass/Vol]on 69-67-2162Ffgdnkf [Mass/Vol]149 mg/wJSqvw41 - 99 mg/dLUnSouthwest General Health CenterInterpretation and review of laboratory resultsAbnormalUniMercy Health Perrysburg HospitalUnSouthwest General Health CenterUnSouthwest General Health CenterGlucose [Mass/Vol]149 mg/gESavd91-72ProdjvvcuvNewark HospitalComment on above:Performed By: #### [id number] #### OLIMPIA WARE ([id number]) [facility] ([facility]) [address] [place], [place] [id number] pathology studyon 82-91-9162Fpfjnttw pathology study Pathology report.total SEE COMMENT Surgical Pathology Case: [id number] Authorizing Provider: Jeremiah Magaña MD Collected: 10/07/2023 0811 Ordering Location: [facility] Received: 10/07/2023 0942 [...] determined by the Department of Pathology at [facility]. The FDA does not require this test to go through premarket FDA review. This test is used for clinical purposes. It should not be regarded as investigational or for research. This laboratory is certified under the Clinical Laboratory Improvement Amendments (CLIA) as qualified to perform high complexity clinical laboratory testing. The assays were performed with appropriate positive and negative controls which stained appropriately.[facility] Methodist HospitalURINE CULTUREon 46-71-1305Ysknxwoe identified Cx Nom (U) MICROBIOLOGY REPORT [facility], [address] [place] [address], [place], [address] PATIENT: YUSEF CAR LOCATION: [facility] - - : 1950 AGE: 73 SEX: M ADM: 07/31/23 Att. Physician: PHYSICIAN, NON-STAFF Order Id: [id number] Req. Physician: PHYSICIAN, NON-STAFF Source: urine, clean catch Site: Collected: 07/31/23 11:50 Current Antibiotics: not stated Antibiotics comment: C O M M E N T S NV - Source of Urine Collection? Urine clean catch STATUS OF ORDERED AND REPORTED TESTS URINE CULTURE FINAL 08/02/23 URINE CULTURE FINAL 08/02/23 07:56 08/01/23 No growth-preliminary 08/02/23 No growthNormalSaint Teton Valley Hospitaltudy Interpretation of outside studyon 83-24-6652Uypep is no result for this study. This is a placeholder for comparison films only.[facility] Study observation Narrativeon 34-20-4610Rmyzx formatting from the original result was not [...] EXAM Mayelin Page 06/10/2023 0859 Procedure Location [facility] [address] [facility] [id number] Referring Provider Jazlyn Mcarthur, [employer]-guard [employer] [address] [facility] [place] [address] Procedure Provider Vic Mcrae MD [facility] Work Phone: [facility] Work Phone: Radiology Study observation (narrative)[facility] Work Phone: Glucose Test strip manual (Bld) [Mass/Vol]on 11-75-8540Bcosmcb [Mass/Vol]113 mg/fOAjhn10 - 99 mg/dLUnSouthwest General Health CenterInterpretation and review of laboratory resultsAbnormalUniMercy Health Perrysburg HospitalUnSouthwest General Health CenterCT Chest and Abdomen and Pelvis W contrast rKistie 39-25-5167AGRRQ: 1. Nodule superior segment left lower lobe. 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 COMPARISON: CT abdomen 12/25/2020 ACCESSION NUMBER(S): [id number] ORDERING CLINICIAN: JAZLYN MCARTHUR TECHNIQUE: Contiguous axial [...] scans. COMPARISON: CT abdomen 12/25/2020 ACCESSION NUMBER(S): [id number] ORDERING CLINICIAN: JAZLYN MCARTHUR TECHNIQUE: Contiguous axial [...] Juanjose Walters 05/27/2023 11:47 AM Dictation workstation: [id number] [facility] Work Phone: ct Chest and Abdomen and Pelvis W contrast IVOrdered By: Juanjose Walters on 54-82-3381DwabufddlsSouthwest General Health Center Work Phone: ct Chest and Abdomen and Pelvis W contrast Kristie 46-06-3463Tjwccankv Study observation (narrative)[facility] Work Phone: CBC AND DIFFERENTIALon 05-12-2022% AUTOMATED IMMATURE GRANCanceledNormalSt. [facility] [place] Specialty HospitalComment on above:Order Comment: TEST CBC AND DIFFERENTIAL WAS CANCELLED, 05/12/2022 10:[address] wagoner doesngustabo needed.Result Comment: Immature Granulocyte Count (IG) includes promyelocytes, myelocytes and metamyelocytes but does not include bands. Percent differential counts (%) should be interpreted in the context of the absolute cell counts (cells/L).Performed By: #### CBCDF #### [address] [place] [address]% BASOPHILCanceledNormalSt. North Alabama Specialty HospitalComment on above:Order Comment: TEST CBC AND DIFFERENTIAL WAS CANCELLED, 05/12/2022 10:[address] wagoner doesngustabo needed.Performed By: #### CBCDF #### [address] [place] [address]% EOSINOPHILCanceledNormalSt. North [place] Specialty HospitalComment on above:Order Comment: TEST CBC AND DIFFERENTIAL WAS CANCELLED, 05/12/2022 10:[address] ciaran mcmanus needed.Performed By: #### CBCDF #### [address] [place] [address]% LYMPHOCYTECanceledNormalSt. [facility] [place] Specialty HospitalComment on above:Order Comment: TEST CBC AND DIFFERENTIAL WAS CANCELLED, 05/12/2022 10:[address] ciaran mcmanus needed.Performed By: #### CBCDF #### [address] [place] [address]% MONOCYTECanceledNormalSt. [facility] [place] Specialty HospitalComharbor oaks hospital on above:Order Comment: TEST CBC AND DIFFERENTIAL WAS CANCELLED, 05/12/2022 10:[address] ciaran mcmanus needed.Performed By: #### CBCDF #### [address] [place] [address]% NEUTROPHILCanceledNormalSt. [facility] [place] Specialty HospitalComharbor oaks hospital on above:Order Comment: TEST CBC AND DIFFERENTIAL WAS CANCELLED, 05/12/2022 10:[address] ciaran mcmanus needed.Performed By: #### CBCDF #### [address] [place], [place] [address]QWWEIPMKApfthnilOlrowhSt. [facility] [place] Specialty HospitalComharbor oaks hospital on above: Order Comment: TEST CBC AND DIFFERENTIAL WAS CANCELLED, 05/12/2022 10:[address] ciaran mcmanus needed.Performed By: #### CBCDF #### [address] [place], [place] [address]BLBTRSROHWHHSrgmffdgPnzfjeSs. [place] [facility]ty [facility] on above:Order Comment: TEST CBC AND DIFFERENTIAL WAS CANCELLED, 05/12/2022 10:[address] ciaran mcmanus needed.Performed By: #### CBCDF #### [address] [place], [place] [address]SOWILENWEEIykovkzqAvxfxdGr. [facility] on above:Order Comment: TEST CBC AND DIFFERENTIAL WAS CANCELLED, 05/12/2022 10:[address] ciaran mcmanus needed.Performed By: #### CBCDF #### [address] [place], [place] [address]APJMunmvrvcLtqtenFe. [facility] on above:Order Comment: TEST CBC AND DIFFERENTIAL WAS CANCELLED, 05/12/2022 10:[address] mohmand doesnot needed.Performed By: #### CBCDF #### [address] [place], [place] [address]SBZOesoyrutIyqrcoWi. [facility] on above:Order Comment: TEST CBC AND DIFFERENTIAL WAS CANCELLED, 05/12/2022 10:[address] ciaran mcmanus needed.Performed By: #### CBCDF #### [address] [place], [place] [address]XAQRWTUYDNQbarjdriNjjyceQy. [facility] on above:Order Comment: TEST CBC AND DIFFERENTIAL WAS CANCELLED, 05/12/2022 10:[address] ciaran mcmanus needed.Performed By: #### CBCDF #### [address] [place], [place] [address]KYJXGwravyltChneyoCd. [facility] on above: Order Comment: TEST CBC AND DIFFERENTIAL WAS CANCELLED, 05/12/2022 10:[address] ciaran mcmanus needed.Performed By: #### CBCDF #### [address] [place], [place] [address]CVJIlyuchdjZvrtviHa. [facility] on above:Order Comment: TEST CBC AND DIFFERENTIAL WAS CANCELLED, 05/12/2022 10:[address] ciaran mcmanus needed.Performed By: #### CBCDF #### [address] [place], [place] [address]VDVOWMJJZnllapkoQsdqgeMl. [facility] on above: Order Comment: TEST CBC AND DIFFERENTIAL WAS CANCELLED, 05/12/2022 10:[address] ciaran mcmanus needed.Performed By: #### CBCDF #### [address] [place], [place] [address]SFYRAGOFRJBslmlzpyOyufswMx. [facility] on above:Order Comment: TEST CBC AND DIFFERENTIAL WAS CANCELLED, 05/12/2022 10:[address] ciaran mcmanus needed.Performed By: #### CBCDF #### [address] [place] [address]KXQNueqkxwaZowxjjVe. [facility] HospitalComment on above:Order Comment: TEST CBC AND DIFFERENTIAL WAS CANCELLED, 05/12/2022 10:[address] ciaran mcmanus needed.Performed By: #### CBCDF #### [address] [place], [place] [address]GOLAuiacbfuFeseswWz. [facility] HospitalComment on above:Order Comment: TEST CBC AND DIFFERENTIAL WAS CANCELLED, 05/12/2022 10:[address] ciaran mcmanus needed.Performed By: #### CBCDF #### [address] [place], [place] [address]HOU-JDWcptdmddDyrwhjLl. [facility] HospitalComment on above: Order Comment: TEST CBC AND DIFFERENTIAL WAS CANCELLED, 05/12/2022 10:[address] ciaran mcmanus needed.Performed By: #### CBCDF #### [address] [place], [place] [address]GZLAxflgutaFqtsgmVq. [facility] HospitalComment on above:Order Comment: TEST CBC AND DIFFERENTIAL WAS CANCELLED, 05/12/2022 10:[address] ciaran mcmanus needed.Performed By: #### CBCDF #### [address] [place], [place] [address]ESPPRXIHPPDHO PANELon 51-93-1483THFPUTZReqibnphNishaoFk. [facility] HospitalComment on above:Order Comment: TEST COMPREHENSIVE PANEL WAS CANCELLED, 05/12/2022 10:[address] ciaran mcmanus needed.Performed By: #### CMP #### [address] [place], [place] [address]KGWFWZZJ PHOSPHATASECanceledNormalSt. [facility] Comment on above:Order Comment: TEST COMPREHENSIVE PANEL WAS CANCELLED, 05/12/2022 10:[address] ciaran mcmanus needed.Performed By: #### CMP #### [address] [place], [place] [address]CKFKxkenpebFcwybkWg. [facility] HospitalComment on above:Order Comment: TEST COMPREHENSIVE PANEL WAS CANCELLED, 05/12/2022 10:[address] ciaran mcmanus needed.Result Comment: Patients treated with Sulfasalazine may generate falsely decreased results for ALT.Performed By: #### CMP #### [address] [place], [place] [address]EHJRP GAPCanceledNormalSt. [facility] on above:Order Comment: TEST COMPREHENSIVE PANEL WAS CANCELLED, 05/12/2022 10:[address] ciaran mcmanus needed.Performed By: #### CMP #### [address] [place], [place] [address]KAWBdepwwwcQjdktxOa. [facility] on above:Order Comment: TEST COMPREHENSIVE PANEL WAS CANCELLED, 05/12/2022 10:[address] ciaran mcmanus needed.Performed By: #### CMP #### [address] [place], [place] [address]TQWLMXKOMOOJgjdjcryMovqtbKb. [facility] on above:Order Comment: TEST COMPREHENSIVE PANEL WAS CANCELLED, 05/12/2022 10:[address] ciaran mcmanus needed.Performed By: #### CMP #### [address] [place], [place] [address]MCWRDDSUY,TOTALCanceledNormalSt. [facility] on above:Order Comment: TEST COMPREHENSIVE PANEL WAS CANCELLED, 05/12/2022 10:[address] ciaran mcmanus needed.Performed By: #### CMP #### [address] [place], [place] [address]CXELYOMMpqouyuoKtgigrKf. [facility] on above: Order Comment: TEST COMPREHENSIVE PANEL WAS CANCELLED, 05/12/2022 10:[address] ciaran mcmanus needed.Performed By: #### CMP #### [address] [place], [place] [address]PIDRJWXFKvgqcjwfRhzbngEa. [facility] on above: Order Comment: TEST COMPREHENSIVE PANEL WAS CANCELLED, 05/12/2022 10:[address] wagoner doesngustabo needed.Performed By: #### CMP #### [address] [place], [place] [address]NJXJYWHBRLSnmsxxwtMcjjmnKu. [facility] on above:Order Comment: TEST COMPREHENSIVE PANEL WAS CANCELLED, 05/12/2022 10:[address] wagoner doesngustabo needed.Performed By: #### CMP #### [address] [place], [place] [address]mGVR FEMALECanceledNormalSt. [facility] on above:Order Comment: TEST COMPREHENSIVE PANEL WAS CANCELLED, 05/12/2022 10:[address] ciaran mcmanus needed.Result Comment: CALCULATIONS OF ESTIMATED GFR ARE PERFORMED USING THE 2020 CKD-EPI STUDY REFIT EQUATION WITHOUT THE RACE VARIABLE FOR THE IDMS-TRACEABLE CREATININE METHODS. https://jasn.asnjournals.org/content/early/ASN.2296204059Xrhmmbkrn By: #### CMP #### [address] [place], [place] [address]jSEH MALECanceledNormalSt. [facility] on above:Order Comment: TEST COMPREHENSIVE PANEL WAS CANCELLED, 05/12/2022 10:[address] ciaran mcmanus needed.Result Comment: CALCULATIONS OF ESTIMATED GFR ARE PERFORMED USING THE 2020 CKD-EPI STUDY REFIT EQUATION WITHOUT THE RACE VARIABLE FOR THE IDMS-TRACEABLE CREATININE METHODS. https://jasn.asnjournals.org/content/early/ASN.9219439427Bzbsxllij By: #### CMP #### [address] [place] [address]SQWRSQPGeidoscvEkzagkWu. [facility] on above: Order Comment: TEST COMPREHENSIVE PANEL WAS CANCELLED, 05/12/2022 10:[address] ciaran mcmanus needed.Performed By: #### CMP #### [address] [place] [address]HAMMVBVAAKkmmxyjeRgrjkwMv. [facility] on above:Order Comment: TEST COMPREHENSIVE PANEL WAS CANCELLED, 05/12/2022 10:[address] wagoner doesngustabo needed.Performed By: #### CMP #### [address] [place] [address]ERNIAGLmspuuxcEuwtarKq. [facility] on above: Order Comment: TEST COMPREHENSIVE PANEL WAS CANCELLED, 05/12/2022 10:[address] wagoner doesngustabo needed.Performed By: #### CMP #### [address] [place] [address]OSKQS PROTEINCanceledNormalSt. [facility] on above:Order Comment: TEST COMPREHENSIVE PANEL WAS CANCELLED, 05/12/2022 10:[address] ciaran mcmanus needed.Performed By: #### CMP #### [address] [place] [address]QRTY NITROGENCanceledNormalSt. [facility] on above:Order Comment: TEST COMPREHENSIVE PANEL WAS CANCELLED, 05/12/2022 10:[address] ciaran mcmanus needed.Performed By: #### CMP #### [address] [place], [place] [address]Xmuuix Note - Heme Onc-Follow Up Visiton 93-15-3223Exzmtb Note - Heme Onc-Follow Up VisitPatient Visit Information: Visit Type: Follow Up Visit History of Present Illness: ID Statement: YUSEF CAR is a 72 year old Male Chief Complaint: Duodenal neuroendocrine tumor Interval History: 71 years old gentleman from [place], [place] who has been referred to me from [facility]. The patient complained of acid reflux [...] Weights & Heights: Date: Weight/Scale Type:Height: 26-Aug-2021 13:99721 kg / standing dkocg723.8 cm 20-May-2021 12:38150 kg / standing ertdz858.8 cm 04-Feb-2021 09:32159 kg / standing .8 cm Physical Exam: [...] BUN CREAT 26-Aug-2021 1 (more content not included)...[facility] - Intakeon 34-79-4050Keetcp Note - IntakePatient Visit Information: Visit TypeFollow [...] 3 Weights & HeightsDate: Weight/Scale Type:Height: 26-Aug-2021 13:17803 kg / standing wvkev952.8 cm 20-May-2021 12:81211 kg / standing inzms606.8 cm SpO2 (%)94 % SpO2 Patient Onroom [...] falls riskimplement environmental risk factors interventions Spiritual/Procedural: Spiritual/cultural/buddhism practices important for us to knowno Alcohol, prescription or recreational drugs taken this AM for non medical reasonsno Electronic Signatures: Kindra Maher (PCNA) (Signed 12-May-2022 09:56) Authored: Patient Visit Information, Vital Signs, Allergies, Outpatient Medication Profile, Notification, Travel History, Falls, Spiritual/Procedural Last Updated: 12-May-2022 09:56 by Kindra Maher (PCNA)[facility] ClinicGLUCOSE-POCTon 68-26-6877Fjeknry [Mass/Vol]139 mg/xUBojf10 - 99. [facility] HospitalComment on above:Performed By: #### GLUPO #### [facility] [address] [address] H[address]ITALV[address] [place], [place] [address]Cxomtrjrgu - Chemistry and Chemistry - challengeon 04-29-2022 Glucose [Mass/Vol]139 mg/dLabove high sigagqsqn74 - 99MP-[facility] Work Phone: No Panel Informationon 60-28-2072YS-[facility] Work Phone: [email or web address]}[facility] Work Phone: [phone]-BsbfMercyOne [facility] Work Phone: Order Reconciliationon 72-59-2050Vqukn Reconciliation Page 1 Discharge Reconciliation Document Reconciliation [...] tablet 1 tab(s) orally once a dayNormalSt. [facility] Surgical Pathology Departmenton [id number] Surgical Pathology DepartmentName YUSEF CAR Pathologist: DU [...] reviewed this case. Diagnostic interpretation performed at [facility] [address] [facility] [place] [address] Clinical History: Follow up history of duodenal [...] positive and negative controls which stained appropriately. [facility] Department of Pathology [address] [place], [place] [id number] ClinicComment on above:Performed By: #### [facility] #### [facility] Surgical Pathology Department [address] [place] [address]Regja GI endoscopyon 89-22-8950Goiyy GI endoscopyPATIENTNAME Patient Name: Yusef Car EXAMDATE Procedure Date: 04/29/2022 7:25 AM PATIENTID PATIENTACCOUNTNUM PATIENTDOB Date of : 1950 ADMITTYPE Admit Type: Outpatient PATIENTROOM Site: [facility] 1 ETHNICITY Ethnicity: Not or RACE Race: White PROVDR Attending MD: Jeremiah Magaña MD, [id number] ENDOPROCEDURENAME Procedure: Upper GI endoscopy INDICATION Indications: [...] (Doctor), Martha Kyle RN (Nurse), Moi Huff, Signal Maintainer EDREFPROVIDER Referring: Vanessa Steele CURRENT_MEDS Medicines: See [...] diet. 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 All rights reserved. The codes documented in this report are preliminary and upon environmental test technician review may be revised to meet current compliance requirements. ATTDRPART Attending Participa (more content not included)...[facility] ClinicGeneral/Metabolic - Establishedon 87-72-3636Hyuuxna/Metabolic - EstablishedPatient Discussion/Summary - You received a [...] history, the 84 gene Multi-Cancer Panel from [facility] wasrecommended and ordered. - I called him [...] no significant history of cancer and/or Ashkenazi Methodist ancestry on their mother's side, no genetic [...] since our discussion today. Lulu Calle MS, [facility] Licensed Genetic Counselor [employer] [phone]. Chief Complaint Patient seen for discussion of [...] MD; Dec 05 2021 3:54PM EST (Review) [facility] TouchworksOffice Visit (Genetics)on 50-02-3176Fhgkxn-up visitPatient Discussion/Summary Mr. CAR is a 71 [...] 84-gene Multi-Cancer + RNA analysis panel from [facility]. Our discussion is summarized below. We reviewed [...] affected individuals), and endocrine tumors of the crsvqr-vwplxq-ctekibjhhr (GEP) tract. 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 However, luxury insurances such as life insurance,buttermaker care insurance, and/or private disability insurance companies [...] about hereditary ca (more content not included)... [facility]-Follow Up Visiton 09-19-4903Qbixdx Note - Heme Onc-Follow Up VisitPatient Visit Information: Visit Type: Follow Up Visit History of Present Illness: ID Statement: Mr. Car is a 71 year old male Chief Complaint: Duodenal neuroendocrine tumor Interval History: 71 years old gentleman from [place], [place] who has been referred to me from [facility]. The patient complained of acid reflux [...] Weights & Heights: Date: Weight/Scale Type:Height: 26-Aug-2021 13:93138 kg / standing .8 cm 20-May-2021 12:19158 kg / standing enhhw385.8 cm 04-Feb-2021 09:29574 kg / standing gptdu791.8 cm Physical Exam: Constitutional: Appears well and [...] Transaminase, Serum 13 Complet (more content not included)...[facility] - Intakeon 20-94-6719Zqqila Note - IntakePatient Visit Information: Visit TypeFollow Up Visit Source of Informationpatient Accompanied byspouse Admission Information: Admission Since Last VisitYes Name of [facility] Admission [id number] Admission Reason/Detailssepsis and removal of gall bladder [...] 3 Weights & HeightsDate: Weight/Scale Type:Height: 20-May-2021 12:23055 kg / standing jyxmj019.8 cm 04-Feb-2021 09:52984 kg / standing ubwro234.8 cm 07-Jan-2021 13:14018 kg / standing .8 cm SpO2 (%)95 [...] patient using an assistive deviceno Electronic Signatures: Laatnya Bhat (PCNA) (Signed 26-Aug-2021 13:50) Authored: Patient Visit Information, Vital Signs, Allergies, Outpatient Medication Profile, Notification, Travel History, Falls Last Updated: 26-Aug-2021 13:50 by Latanya Bhat (PCNA)[facility] and ClinicCULTURE BLOODon 44-64-1621Zqdrcyitugc examination of blood, cultureCulture Observations: Klebsiella pneumoniae [...] <=0.12 S F Trimethoprim/Sulfamethoxazole <=20 S FNormalThe [facility] HospitalComment on above:Performed By: #### TAMIKO #### [facility] [address] [place] [address] Dr. Freda Romero AUTO DIFFon 46-65-1593FJLQ #0.0 103/ulNormal0.0-0.1The [facility] HospitalComment on above:Performed By: #### POCGLUC #### [facility] [address] [place] [address] José Luis KarenBasophils/100 WBC (Bld)0.1 %Critically low0.2-2.0The [facility] HospitalComment on above:Performed By: #### POCGLUC #### [facility] [address] [place] [address] José Luis KarenEO #0.0 103/ulNormal0.0-0.7The [facility] HospitalComment on above: Performed By: #### POCGLUC #### [facility] [address] [place] [address] José Luis KarenEosinophils/100 WBC (Bld)0.0 %Critically low0.9-7.0The [facility] HospitalComment on above:Performed By: #### POCGLUC #### [facility] [address] [place] [address] José Luis KarenErythrocyte distribution width (RBC) [Ratio]15.1 %Critically high 11.0-15.0The [facility] HospitalComment on above:Performed By: #### POCGLUC #### [facility] [address] [place] [address] José Luis KarenHematocrit (Bld) [Volume fraction]34.7 %Critically low42.0-54.0The [facility] HospitalComment on above:Performed By: #### POCGLUC #### [facility] [address] [place] [address] José Luis KarenHemoglobin (Bld) [Mass/Vol]10.9 g/dLCritically low14.0-18.0The [facility] HospitalComment on above:Performed By: #### POCGLUC #### [facility] [address] [place] [address] José Luis KarenIG #0.04 10e3/ulCritically high0.00-0.03The [facility] HospitalComment on above:Performed By: #### POCGLUC #### [facility] [address] [place] [address] José Luis KarenIG %0.4 %Normal0.0-0.5The [facility] HospitalComment on above: Performed By: #### POCGLUC #### [facility] [address] [place] [address] José Luis BeardLYMPH #0.5 103/ulCritically low1.2-3.8The [facility] HospitalComment on above:Performed By: #### POCGLUC #### [facility] [address] [place] [address] José Luis MathurenLymphocytes/100 WBC (Bld)5.5 %Critically low20.5-60.0The [facility] HospitalComment on above:Performed By: #### POCGLUC #### [facility] [address] [place] [address] José Luis KarenMANUAL DIFF REQNONormalThe [facility] HospitalComment on above: Performed By: #### POCGLUC #### [facility] [address] [place] [address] José Luis KarBethesda Hospital (RBC) [Entitic mass]28.2 lzQovwzk14.9-34.0[facility] Comment on above:Performed By: #### POCGLUC #### [facility] [address] [place] [address] José Luis KarenHC (RBC) [Mass/Vol]31.4 g/aBJinqbd53.9-35.2[facility] Comment on above:Performed By: #### POCGLUC #### [facility] [address] [place] [address] José Luis MathurAscension Standish HospitalV (RBC) [Entitic vol]89.9 tLDntjzn83.0-94.0[facility] Comment on above:Performed By: #### POCGLUC #### [facility] [address] [place] [address] José Luis MathurenMONO #0.9 103/ulCritically high0.3-0.8The [facility] HospitalComment on above:Performed By: #### POCGLUC #### [facility] [address] [place] [address] José Luis KarenMonocytes/100 WBC (Bld)9.4 %Normal1.7-12.0The [facility] Comment on above:Performed By: #### POCGLUC #### [facility] [address] [place] [address] José Luis MathurenNEUT #8.1 103/ulCritically high1.4-6.5The [facility] HospitalComment on above:Performed By: #### POCGLUC #### [facility] [address] [place] [address] José Luis MathurenNeutrophils/100 WBC (Bld)84.6 %Critically high43.0-75.0The [facility] HospitalComment on above:Performed By: #### POCGLUC #### [facility] [address] [place] [address] José Luis MathurenPlatelet mean volume (Bld) [Entitic vol]10.5 fLNormal9.5-13.5The [facility] HospitalComment on above:Performed By: #### POCGLUC #### [facility] [address] [place] [address] José Luis DiiuaNLU763 103/xkNhqotl295-751Vfd [facility] HospitalComment on above: Performed By: #### POCGLUC #### [facility] [address] [place] [address] José Luis KarenRBC3.86 106/ulCritically low4.70-6.10The [facility] HospitalComment on above:Performed By: #### POCGLUC #### [facility] [address] [place] [address] José Luis KarenWBC9.6 103/ulNormal4.0-11.0The [facility] HospitalComment on above: Performed By: #### POCGLUC #### [facility] [address] [place] [address] José Luis KarenCULTURE BLOODon 36-48-8981Wsitrkgpdoe examination of blood, culture Culture Observations: NO GROWTH AT 5 DAYS.NormalThe [facility] HospitalComment on above:Performed By: #### CBCMAN #### [facility] [address] [place] [address] Dr. Freda [facility]De[facility] 39-48-5416Jwfztwr [Mass/Vol]192 mg/dL Critically mbvi74-343Utf [facility] HospitalComment on above:Performed By: #### POCGLUC #### [facility] [address] [address] [address] Freda Sepulveda 14(COMP METB)on 37-86-4625Yznkwls [Mass/Vol]2.6 g/dL Critically low3.5-5.0The [facility] HospitalComment on above:Performed By: #### POCGLUC #### [facility] [address] [address] José Luis KarenAlbumin/Globulin [Mass ratio]0.7 {ratio}NormalMain Campus Medical Center Comment on above:Performed By: #### POCGLUC #### [facility] [address] [place] [address] José Luis KarenALP [Catalytic activity/Vol]233 U/LCritically fprf23-446Mjq [facility] HospitalComment on above:Performed By: #### POCGLUC #### [facility] [address] [address] José Luis KarenALT [Catalytic activity/Vol]103 U/LCritically jcia83-49Tca [facility] HospitalComment on above:Performed By: #### POCGLUC #### [facility] [address] [address] José Luis KarenAnion gap [Moles/Vol]12.2 mmol/LNormalMain Campus Medical CenterComment on above:Performed By: #### POCGLUC #### [facility] [address] [place] [address] José Luis KarenAST [Catalytic activity/Vol]44 U/OIoactt23-36FswMain Campus Medical Center Comment on above:Performed By: #### POCGLUC #### [facility] [address] [place] [address] José Luis KarenBilirubin [Mass/Vol]0.4 mg/dLNormal0.2-1.3TAdena Health System Comment on above:Performed By: #### POCGLUC #### [facility] [address] [place] [address] José Luis KarenCalcium [Mass/Vol]9.0 mg/dLNormal8.4-10.2[facility] Comment on above:Performed By: #### POCGLUC #### [facility] [address] [place] [address] José Luis KarenChloride [Moles/Vol]102 mmol/EWwjuyt97-842KaxMain Campus Medical Center Comment on above:Performed By: #### POCGLUC #### [facility] [address] [place] [address] José Luis KarenCO2 [Moles/Vol]26.9 mmol/WKivtgn48.0-30.0The [facility] Comment on above:Performed By: #### POCGLUC #### [facility] [address] [place] [address] José Luis KarenCreatinine [Mass/Vol]1.22 mg/dLNormal0.66-1.25ThLicking Memorial [facility] Comment on above:Performed By: #### POCGLUC #### [facility] [address] [place] [address] José Luis KarenEGFR-AF CONGOLESE>60Normal>=60Main Campus Medical CenterComment on above: Performed By: #### POCGLUC #### [facility] [address] [place] [address] José Luis KarenEGFR-NON AF [id number] mL/min/1.50m6Eqllzeynxn low>=60The [facility] HospitalComment on above:Performed By: #### POCGLUC #### [facility] [address] [place] [address] José Luis KarenGlobulin (S) [Mass/Vol]3.6 g/dLNormalThLicking Memorial HospitalComment on above:Performed By: #### POCGLUC #### [facility] [address] [place] [address] José Luis KarenGlucose [Mass/Vol]152 mg/dLCritically xvnu21-543Twj [facility] HospitalComment on above:Performed By: #### POCGLUC #### [facility] [address] [place], [place] [address] José Luis KarenPotassium [Moles/Vol]4.1 mmol/LNormal3.4-5.0The [facility] Comment on above:Performed By: #### POCGLUC #### [facility] [address] [place] [address] José Luis KarenProtein [Mass/Vol]6.2 g/dLNormal6.1-8.2The [facility] HospitalComment on above:Performed By: #### POCGLUC #### [facility] [address] [place] [address] José Luis KarenSodium [Moles/Vol]137 mmol/FFijkny900-796Zad [facility] Comment on above:Performed By: #### POCGLUC #### [facility] [address] [place] [address] José Luis KarenUrea nitrogen [Mass/Vol]12.0 mg/dLNormal9.0-20.0The [facility] HospitalComment on above:Performed By: #### POCGLUC #### [facility] [address] [place] [address] José Luis KarenUrea nitrogen/Creatinine [Mass ratio]9.8 mg/mgNormalThe [facility] HospitalComment on above:Performed By: #### POCGLUC #### [facility] [address] [place] [address] José Luis KarenCBC AUTO DIFFon [id number] #0.0 103/ulNormal0.0-0.1[facility] Campus Medical CenterComment on above:Performed By: #### POCGLUC #### [facility] [address] [place] [address] Dr. Freda Seophils/100 WBC (Bld)0.2 %Normal0.2-2.0The [facility] Comment on above:Performed By: #### POCGLUC #### [facility] [address] [place] [address] Dr. Barba ChangELucia #0.0 103/ulNormal0.0-0.7The [facility] HospitalComment on above: Performed By: #### POCGLUC #### [facility] [address] [address] [address] Freda Bergmanosinophils/100 WBC (Bld)0.4 %Critically low0.9-7.0The [facility] HospitalComment on above:Performed By: #### POCGLUC #### [facility] [address] [place] [address] Dr. Freda Bergmanrythrocyte distribution width (RBC) [Ratio]15.4 %Critically high 11.0-15.0The [facility] HospitalComment on above:Performed By: #### POCGLUC #### [facility] [address] [place] [address] Dr. Freda WayneHematocrit (Bld) [Volume fraction]35.5 %Critically low42.0-54.0 The [facility] HospitalComment on above:Performed By: #### POCGLUC #### [facility] [address] [place] [address] Dr. Freda WayneHemoglobin (Bld) [Mass/Vol]11.5 g/dLCritically low14.0-18.0The [facility] HospitalComment on above:Performed By: #### POCGLUC #### [facility] [address] [place] [address] Dr. Freda Yancey #0.04 10e3/ulCritically high0.00-0.03[facility] Comment on above:Performed By: #### POCGLUC #### [facility] [address] [place] [address] Dr. Freda Yancey %0.4 %Normal0.0-0.5The [facility] HospitalComment on above: Performed By: #### POCGLUC #### [facility] [address] [place] [address] Dr. Freda WrightH #0.7 103/ulCritically low1.2-3.8The [facility] Comment on above:Performed By: #### POCGLUC #### [facility] [address] [place] [address] Dr. Freda Walkermphocytes/100 WBC (Bld)7.4 %Critically low20.5-60.0The [facility] HospitalComment on above:Performed By: #### POCGLUC #### [facility] [address] [address] [address] Freda Kim DIFF REQNONormalThe [facility] HospitalComment on above: Performed By: #### POCGLUC #### [facility] [address] [address] [address] Freda Land (RBC) [Entitic mass]28.8 zjLmepug96.9-34.0The [facility] HospitalComment on above:Performed By: #### POCGLUC #### [facility] [address] [place] [address] Dr. Freda Land (RBC) [Mass/Vol]32.4 g/xGAomhjq28.9-35.2The [facility] HospitalComment on above:Performed By: #### POCGLUC #### [facility] [address] [place] [address] Dr. Freda Land (RBC) [Entitic vol]89.0 wRLnztwu27.0-94.0[facility] Medical CenterComment on above:Performed By: #### POCGLUC #### [facility] [address] [place] [address] Dr. Freda Martinez #1.1 103/ulCritically high0.3-0.8ThLicking Memorial Hospital Comment on above:Performed By: #### POCGLUC #### [facility] [address] [place] [address] Dr. Freda Friedocytes/100 WBC (Bld)10.5 %Normal1.7-12.0[facility] Comment on above:Performed By: #### POCGLUC #### [facility] [address] [place] [address] Dr. Freda Deshpande #8.2 103/ulCritically high1.4-6.5ThLicking Memorial Hospital Comment on above:Performed By: #### POCGLUC #### [facility] [address] [place] [address] Dr. Freda Huangutrophils/100 WBC (Bld)81.1 %Critically high43.0-75.0The [facility] HospitalComment on above:Performed By: #### POCGLUC #### [facility] [address] [place] [address] Dr. Freda Ricardo mean volume (Bld) [Entitic vol]10.4 fLNormal9.5-13.5The [facility] HospitalComment on above:Performed By: #### POCGLUC #### [facility] [address] [place] [address] Dr. Freda WaynePLT262 103/azQllkks909-041Ubp [facility] HospitalComment on above: Performed By: #### POCGLUC #### [facility] [address] [place] [address] Dr. Freda WayneRBC3.99 106/ulCritically low4.70-6.10The [facility] HospitalComment on above:Performed By: #### POCGLUC #### [facility] [address] [place] [address] Dr. Freda WayneWBC10.1 103/ulNormal4.0-11.0The [facility] HospitalComment on above:Performed By: #### POCGLUC #### [facility] [address] [place] [address] Dr. Freda WayneDONALSONVIL[facility] GLUCOSEon 87-14-4058Bkbqefg [Mass/Vol]208 mg/dL Critically yckg17-260Bjl [facility] HospitalComment on above:Performed By: #### POCGLUC #### [facility] [address] [place] [address] Dr. Freda WayneGlucose [Mass/Vol]188 mg/dLCritically sube56-797Xka [facility] HospitalComment on above:Performed By: #### POCGLUC #### [facility] [address] [place] [address] Dr. Freda WayneGlucose [Mass/Vol]143 mg/dLCritically xdwl62-234Axq [facility] HospitalComment on above:Performed By: #### POCGLUC #### [facility] [address] [place] [address] José Luis KarenPROF 14(COMP METB)on 81-05-2059Mjgbhqn [Mass/Vol]2.8 g/dLCritically low3.5-5.0[facility] Medical CenterComment on above:Performed By: #### POCGLUC #### [facility] [address] [place] [address] José Luis KarenAlbumin/Globulin [Mass ratio]0.8 {ratio}NormalMain Campus Medical Center Comment on above:Performed By: #### POCGLUC #### [facility] [address] [place] [address] José Luis KarenALP [Catalytic activity/Vol]126 U/CKdtlya68-005IxjMain Campus Medical Center Comment on above:Performed By: #### POCGLUC #### [facility] [address] [place] [address] José Luis KarenALT [Catalytic activity/Vol]109 U/LCritically jnks16-92Umv [facility] HospitalComment on above:Performed By: #### POCGLUC #### [facility] [address] [place] [address] José Luis KarenAnion gap [Moles/Vol]14.4 mmol/LNormalMain Campus Medical CenterComment on above:Performed By: #### POCGLUC #### [facility] [address] [place] [address] José Luis KarenAST [Catalytic activity/Vol]42 U/TZwrzow18-05VifMain Campus Medical Center Comment on above:Performed By: #### POCGLUC #### [facility] [address] [place] [address] José Luis KarenBilirubin [Mass/Vol]0.7 mg/dLNormal0.2-1.3TAdena Health System Comment on above:Performed By: #### POCGLUC #### [facility] [address] [place] [address] José Luis KarenCalcium [Mass/Vol]8.7 mg/dLNormal8.4-10.2[facility] Comment on above:Performed By: #### POCGLUC #### [facility] [address] [place] [address] José Luis KarenChloride [Moles/Vol]100 mmol/UZgiiwo45-667QlrMain Campus Medical Center Comment on above:Performed By: #### POCGLUC #### [facility] [address] [address] José Luis KarenCO2 [Moles/Vol]26.1 mmol/XBbnrmu23.0-30.0[facility] Comment on above:Performed By: #### POCGLUC #### [facility] [address] [address] José Luis KarenCreatinine [Mass/Vol]1.23 mg/dLNormal0.66-1.25ThLicking Memorial Hospital Comment on above:Performed By: #### POCGLUC #### [facility] [address] [place] [address] José Luis KarenEGFR-AF CONGOLESE>60Normal>=60[facility] Medical CenterComment on above: Performed By: #### POCGLUC #### [facility] [address] [place] [address] José Luis KarenEGFR-NON AF PFQSHEPI32 mL/min/1.41d7Weiedsybjm low>=60The [facility] HospitalComment on above:Performed By: #### POCGLUC #### [facility] [address] [place] [address] José Luis KarenGlobulin (S) [Mass/Vol]3.5 g/dLNormalThLicking Memorial HospitalComment on above:Performed By: #### POCGLUC #### [facility] [address] [place] [address] José Luis KarenGlucose [Mass/Vol]139 mg/dLCritically vlhe52-514OtgMain Campus Medical CenterComment on above:Performed By: #### POCGLUC #### [facility] [address] [place] [address] José Luis KarenPotassium [Moles/Vol]3.5 mmol/LNormal3.4-5.0[facility] Comment on above:Performed By: #### POCGLUC #### [facility] [address] [place] [address] José Luis KarenProtein [Mass/Vol]6.3 g/dLNormal6.1-8.2The [facility] HospitalComment on above:Performed By: #### POCGLUC #### [facility] [address] [place] [address] José Luis KarenSodium [Moles/Vol]137 mmol/QRgdlie592-146Uvh [facility] Comment on above:Performed By: #### POCGLUC #### [facility] [address] [place] [address] José Luis KarenUrea nitrogen [Mass/Vol]12.0 mg/dLNormal9.0-20.0The [facility] HospitalComment on above:Performed By: #### POCGLUC #### [facility] [address] [place] [address] José Luis KarenUrea nitrogen/Creatinine [Mass ratio]9.8 mg/mgNormalThe [facility] HospitalComment on above:Performed By: #### POCGLUC #### [facility] [address] [place] [address] José Luis KarenCBC W MANUAL DIFFon [id number] LYMPH #NormalThe [facility] HospitalComment on above:Performed By: #### CBCMAN #### [facility] [address] [place] [address] Dr. Freda WayneATYPICAL LYMPH %NormalThe [facility] HospitalComment on above: Performed By: #### CBCMAN #### [facility] [address] [place] [address] Dr. Freda Ventura #0.3 103/ulNormal0.0-0.3The [facility] HospitalComment on above:Performed By: #### CBCMAN #### [facility] [address] [place] [address] Dr. Freda Ventura %3 %Normal0-5The [facility] HospitalComment on above:Performed By: #### CBCMAN #### [facility] [address] [place] [address] Dr. Freda Riojas #0.00 103/ulNormal0.00-0.10The [facility] HospitalComment on above:Performed By: #### CBCMAN #### [facility] [address] [address] [address] Freda Riojas %0.0 %Critically low0.2-2.0The [facility] HospitalComment on above:Performed By: #### CBCMAN #### [facility] [address] [address] [address] Freda WayneBLAST #NormalThe [facility] HospitalComment on above:Performed By: #### CBCJOE #### [facility] [address] [address] [address] Freda WayneBLAST %NormalThe [facility] HospitalComment on above:Performed By: #### CBCJOE #### [facility] [address] [place] [address] Dr. Freda WayneCORRECTED WBCNormal4.0-11.0The [facility] HospitalComment on above: Performed By: #### CBCJOE #### [facility] [address] [place] [address] Dr. Freda Nuñez #0.00 103/ulNormal0.00-0.70The [facility] HospitalComment on above:Performed By: #### TAMIKO #### [facility] [address] [place] [address] Dr. Freda Nuñez%0.0 %Critically low0.9-7.0The [facility] HospitalComment on above:Performed By: #### CBCJOE #### [facility] [address] [address] [address] Freda WayneHCT35.4 %Critically low42.0-54.0The [facility] HospitalComment on above:Performed By: #### CBCJOE #### [facility] [address] [place] [address] Dr. Freda WayneHGB11.3 g/dlCritically low14.0-18.0The [facility] HospitalComment on above:Performed By: #### CBCMAN #### [facility] [address] [place] [address] Dr. Freda Langford #0.65 103/ulCritically low1.20-3.80The [facility] Comment on above:Performed By: #### TAMIKO #### [facility] [address] [address] [address] Freda Langford%6.0 %Critically low20.5-60.0The [facility] HospitalComment on above:Performed By: #### TAMIKO #### [facility] [address] [address] [address] Freda LandH28.8 cnBpfnny38.9-34.0The [facility] HospitalComment on above: Performed By: #### TAMIKO #### [facility] [address] [address] [address] Freda LandHC31.9 g/gnEroqst78.9-35.2The [facility] HospitalComment on above:Performed By: #### TAMIKO #### [facility] [address] [place] [address] Dr. Freda LandV90.3 sGRnribo62.0-94.0The [facility] HospitalComment on above: Performed By: #### TAMIKO #### [facility] [address] [place] [address] Dr. Freda GudinoOCYTE #NormalThe [facility] HospitalComment on above: Performed By: #### TAMIKO #### [facility] [address] [place] [address] Dr. Freda GudinoOCYTE %NormalThe [facility] HospitalComment on above: Performed By: #### TAMIKO #### [facility] [address] [place] [address] Dr. Freda Antonio#0.76 103/ulNormal0.30-0.80The [facility] HospitalComment on above:Performed By: #### TAMIKO #### [facility] [address] [place] [address] Dr. Freda Antonio%7.0 %Normal1.7-12.0The [facility] HospitalComment on above: Performed By: #### TAMIKO #### [facility] [address] [place] [address] Dr. Freda HassanV10.2 fLNormal9.5-13.5The [facility] HospitalComment on above: Performed By: #### TAMIKO #### [facility] [address] [address] [address] Freda Chen #NormalMain Campus Medical CenterComment on above:Performed By: #### TAMIKO #### [facility] [address] [address] [address] Freda EllisOCYTE %NormalThe [facility] HospitalComment on above:Performed By: #### TAMIKO #### [facility] [address] [address] [address] Freda WayneNRBCNoalThLicking Memorial HospitalComment on above:Performed By: #### TAMIKO #### [facility] [address] [place] [address] Dr. Freda McgarryT275 103/mwEnreaz268-291Ffu [facility] HospitalComment on above: Performed By: #### TAMIKO #### [facility] [address] [place] [address] Dr. Freda WayneRBC3.92 106/ulCritically low4.70-6.10The [facility] HospitalComment on above:Performed By: #### TAMIKO #### [facility] [address] [place] [address] Dr. Freda WayneRDW15.5 %Critically high11.0-15.0The [facility] HospitalComment on above:Performed By: #### TAMIKO #### [facility] [address] [place] [address] Dr. Freda Burdick #9.16 103/ulCritically high1.40-6.50The [facility] on above:Performed By: #### TAMIKO #### [facility] [address] [place] [address] Dr. Freda Burdick %84.0 %Critically high43.0-75.0The [facility] HospitalComment on above:Performed By: #### TAMIKO #### [facility] [address] [place] [address] Dr. Freda WayneWBC10.9 103/ulNormal4.0-11.0[facility] Medical CenterComment on above:Performed By: #### CBCMAN #### [facility] [address] [address] [address] Freda Ontiveros HEPATOBILIARY SCANon [id number] HEPATOBILIARY SCANEXAM: NM HEPATOBILIARY SCAN HISTORY: Acute [...] Electronically authenticated by: CINDI RYAN Date: 2021-06-04 00:06[facility]own HospitalPOINT OF CARE GLUCOSEon 20-50-4529Uofpalm [Mass/Vol]219 mg/dL Critically ntga82-421MpaMain Campus Medical CenterComment on above:Performed By: #### POCGLUC #### [facility] [address] [address] José Luis KarenGlucose [Mass/Vol]134 mg/dLCritically npsx51-314BliMain Campus Medical CenterComment on above:Performed By: #### POCGLUC #### [facility] [address] [address] [address] Freda WayneGlucose [Mass/Vol]196 mg/dLCritically yxdy59-495QjfMain Campus Medical CenterComment on above:Performed By: #### POCGLUC #### [facility] [address] [address] José Luis KarenPROF 14(COMP METB)on 93-16-5456Ffylood [Mass/Vol]2.8 g/dLCritically low3.5-5.0[facility] Medical CenterComment on above:Performed By: #### CMP #### [facility] [address] [address] [address] Freda WayneAlbumin/Globulin [Mass ratio]0.8 {ratio}NormalThe [facility] HospitalComment on above:Performed By: #### CMP #### [facility] [address] [place] [address] Dr. Freda PearsonP [Catalytic activity/Vol]131 U/LCritically wjjs13-044Ujt [facility] HospitalComment on above:Performed By: #### CMP #### [facility] [address] [place] [address] Dr. Freda PearsonT [Catalytic activity/Vol]153 U/LCritically geys21-03Ppa [facility] HospitalComment on above:Performed By: #### CMP #### [facility] [address] [place] [address] Dr. Freda Duboseon gap [Moles/Vol]12.6 mmol/LNormalThe [facility] Comment on above:Performed By: #### CMP #### [facility] [address] [place] [address] Dr. Freda WayneAST [Catalytic activity/Vol]79 U/LCritically gqzp13-54Uqv [facility] HospitalComment on above:Performed By: #### CMP #### [facility] [address] [place] [address] Dr. Freda WayneBilirubin [Mass/Vol]0.7 mg/dLNormal0.2-1.3The [facility] Comment on above:Performed By: #### CMP #### [facility] [address] [place] [address] Dr. Freda WayneCalcium [Mass/Vol]8.6 mg/dLNormal8.4-10.2[facility] Comment on above:Performed By: #### CMP #### [facility] [address] [place] [address] Dr. Freda WayneChloride [Moles/Vol]104 mmol/BYfczqv42-449Dow [facility] Comment on above:Performed By: #### CMP #### [facility] [address] [place] [address] Dr. Frdea WayneCO2 [Moles/Vol]25.2 mmol/BJewbsg34.0-30.0The [facility] Comment on above:Performed By: #### CMP #### [facility] [address] [address] [address] Freda WayneCreatinine [Mass/Vol]1.30 mg/dLCritically high0.66-1.25The [facility] HospitalComment on above:Performed By: #### CMP #### [facility] [address] [address] [address] Freda BergmanGFR-AF CONGOLESE>60Normal>=60The [facility] HospitalComment on above:Performed By: #### CMP #### [facility] [address] [place] [address] Dr. Freda BergmanGFR-NON AF VJMVLYFY24 mL/min/1.29d5Orwtljnymn low>=60The [facility] HospitalComment on above:Performed By: #### CMP #### [facility] [address] [place] [address] Dr. Freda WayneGlobulin (S) [Mass/Vol]3.3 g/dLNormalThe [facility] HospitalComment on above:Performed By: #### CMP #### [facility] [address] [place] [address] Dr. Freda WayneGlucose [Mass/Vol]141 mg/dLCritically aorp91-840Pts [facility] HospitalComment on above:Performed By: #### CMP #### [facility] [address] [place] [address] Dr. Freda WaynePotassium [Moles/Vol]3.8 mmol/LNormal3.4-5.0The [facility] Comment on above:Performed By: #### CMP #### [facility] [address] [place] [address] Dr. Freda WayneProtein [Mass/Vol]6.1 g/dLNormal6.1-8.2The [facility] Comment on above:Performed By: #### CMP #### [facility] [address] [place] [address] Dr. Freda Traceyum [Moles/Vol]138 mmol/UUnmeke509-894BkjMain Campus Medical Center Comment on above:Performed By: #### CMP #### [facility] [address] [place] [address] Dr. Freda Fernandez nitrogen [Mass/Vol]13.0 mg/dLNormal9.0-20.0[facility] CenterComment on above:Performed By: #### CMP #### [facility] [address] [place] [address] Dr. Freda Fernandez nitrogen/Creatinine [Mass ratio]10.0 mg/mgMiddletown HospitalComment on above:Performed By: #### CMP #### [facility] [address] [place] [address] Dr. Freda Pérez CULTURE ID PANELon 06-03-2021. baumanniiNot detectedNormal The [facility] HospitalComment on above:Performed By: #### BCID #### [facility] [address] [place] [address] Dr. Freda Dougherty CONTROLSPASSThe [facility] HospitalComment on above: Performed By: #### BCID #### [facility] [address] [place] [address] Dr. Freda DoughertyBTHDBLOOD CULTURE BOTTLE INFORMATIONMiddletown HospitalComharbor oaks hospital on above:Performed By: #### BCID #### [facility] [address] [place] [address] Dr. Freda DoughertyTxofmACSQTW9XPQUMCJLWJYBY RESISTANCE GENESMiddletown Hospital Comment on above:Performed By: #### BCID #### [facility] [address] [place] [address] Dr. Freda DoughertyHD2SEE Lutheran HospitalComment on above: Result Comment: KPC- carbapenem resistance gene, mecA- methecillin resistance gene, van A/B- vancomycin resistance gene Note: Antimicrobial resitance can occur via multiple mechanisms. A Not Detectedresult for the [employer] antomicrobial resistance gene assays does not indicate antimicrobial suscep tibility. Subculturing is required for specis identificationand susceptibility testing of isolates.Performed By: #### BCID #### [facility] [address] [place] [address] Dr. Freda DoughertyWdlqzOVHEQS1RnzkqxurQrxslqEgfUC Health on above: Performed By: #### BCID #### [facility] [address] [place] [address] Dr. Freda DoughertyPjkjoDVXASW5YfqzksiqDjquhmRno [facility]Com[facility] on above: Performed By: #### BCID #### [facility] [address] [place] [address] Dr. Freda DoughertyFjpjaAWEINQ3BOZQDVxzkmtTghMiddletown HospitalComharbor oaks hospital on above:Performed By: #### BCID #### [facility] [address] [place] [address] Dr. Freda DoughertyHD6SEE BELOWUC Health on above: Result Comment: Note: All genus and species BCID FilmArray results will be verified post subculturing via Maldi-Tof MS testing methodology.Performed By: #### BCID #### [facility] [address] [place] [address] Dr. Freda Jay Set:Set 1NMemorial Hospital on above: Performed By: #### BCID #### [facility] [address] [place] [address] Dr. Freda Jay:AerobicUC Health on above: Performed By: #### BCID #### [facility] [address] [place] [address] Dr. Freda Mariscal albicansNot detectedMiddletown HospitalComharbor oaks hospital on above:Performed By: #### BCID #### [facility] [address] [place] [address] Dr. Freda Mariscal glabrataNot [facility] CenterComharbor oaks hospital on above:Performed By: #### BCID #### [facility] [address] [place] [address] Dr. Freda Maravilla detectedMiddletown HospitalComment on above:Performed By: #### BCID #### [facility] [address] [address] [address] Freda Mariscal ParapsilosisNot detectedMiddletown Hospital Comment on above:Performed By: #### BCID #### [facility] [address] [address] [address] Freda Mariscal TropicalisNot detectedUniversity Hospitals Cleveland Medical Center HospitalComment on above:Performed By: #### BCID #### [facility] [address] [address] [address] Freda Justice Cloacae complexNot detectedMiddletown HospitalComment on above:Performed By: #### BCID #### [facility] [address] [address] [address] Freda ReillybacteriaceaeDetectedCritically abnormalMain Campus Medical CenterComment on above:Performed By: #### BCID #### [facility] [address] [address] [address] Freda BorgeserococcusNot detectedMiddletown HospitalComment on above:Performed By: #### BCID #### [facility] [address] [address] [address] Freda Chaviracheria coliNot detectedMiddletown HospitalComment on above:Performed By: #### BCID #### [facility] [address] [address] [address] Freda West oxytocaNot detectedUniversity Hospitals Cleveland Medical Center HospitalComment on above:Performed By: #### BCID #### [facility] [address] [address] [address] Freda West pneumoniaeDetectedCritically abnormalUc Medical Center on above:Performed By: #### BCID #### [facility] [address] [address] [address] Freda WayneKPC Resistant GeneNot detectedUniversity Hospitals Cleveland Medical Center HospitalComment on above:Performed By: #### BCID #### [facility] [address] [address] [address] Freda Park. monocytogenesNot detectedUniversity Hospitals Cleveland Medical Center HospitalComment on above:Performed By: #### BCID #### [facility] [address] [address] [address] Freda PsatorA Resistant GeneNot ApplicableUniversity Hospitals Health System on above:Performed By: #### BCID #### [facility] [address] [address] [address] Freda WayneProteusNot detectedUniversity Hospitals Cleveland Medical Center HospitalComment on above: Performed By: #### BCID #### [facility] [address] [address] [address] Freda Diaz. aeruginosaNot detectedUniversity Hospitals Cleveland Medical Center HospitalComment on above:Performed By: #### BCID #### [facility] [address] [address] [address] Freda Luatia marcescensNot detectedMiddletown HospitalComment on above:Performed By: #### BCID #### [facility] [address] [address] [address] Freda Carlisle:left ACNormalMain Campus Medical CenterComment on above:Performed By: #### BCID #### [facility] [address] [address] [address] Freda Larsenaph. aureusNot detectedUniversity Hospitals Cleveland Medical Center HospitalComment on above:Performed By: #### BCID #### [facility] [address] [address] [address] Freda WayneStaphylococcusNot detectedUniversity Hospitals Cleveland Medical Center HospitalComment on above:Performed By: #### BCID #### [facility] [address] [address] [address] Freda Flores. agalactiaeNot detectedUniversity Hospitals Cleveland Medical Center HospitalComment on above:Performed By: #### BCID #### [facility] [address] [address] [address] Freda Flores. pneumoniaeNot detectedMiddletown HospitalComment on above:Performed By: #### BCID #### [facility] [address] [place] [address] Dr. Freda Flores. pyogenesNot detectedMiddletown HospitalComment on above:Performed By: #### BCID #### [facility] [address] [place] [address] Dr. Freda FlorestococcusNot detectedUniversity Hospitals Cleveland Medical Center HospitalComment on above:Performed By: #### BCID #### [facility] [address] [place] [address] Dr. Freda Coto/Kate Resist. GeneNot ApplicableUniversity Hospitals Health System on above:Performed By: #### BCID #### [facility] [address] [place] [address] Dr. Freda Romero W MANUAL DIFFon [id number] LYMPH #NormalMain Campus Medical CenterComment on above:Performed By: #### POCGLUC #### [facility] [address] [place] [address] José Luis KarenATYPICAL LYMPH %NormalMain Campus Medical CenterComment on above: Performed By: #### POCGLUC #### [facility] [address] [place] [address] José Luis KarenBAND #Normal0.0-0.3The [facility]enay HospitalComment on above:Performed By: #### POCGLUC #### [facility] [address] [place] [address] José Luis KarenBAND %Normal0-5The [facility] HospitalComment on above:Performed By: #### POCGLUC #### [facility] [address] [place] [address] José Luis KarenBASOM #0.00 103/ulNormal0.00-0.10The [facility] HospitalComment on above:Performed By: #### POCGLUC #### [facility] [address] [place] [address] José Luis KarenBASOM %0.0 %Critically low0.2-2.0The [facility] HospitalComment on above:Performed By: #### POCGLUC #### [facility] [address] [place] [address] José Luis KarenBLAST #NormalThe [facility]enay HospitalComment on above:Performed By: #### POCGLUC #### [facility] [address] [place] [address] José Luis KarenBLAST %NormalThe [facility]enay HospitalComment on above:Performed By: #### POCGLUC #### [facility] [address] [place] [address] José Luis KarenCORRECTED WBCNormal4.0-11.0The [facility] HospitalComment on above: Performed By: #### POCGLUC #### [facility] [address] [place] [address] José Luis KarenEOS #0.00 103/ulNormal0.00-0.70The [facility] HospitalComment on above:Performed By: #### POCGLUC #### [facility] [address] [place] [address] José Luis KarenEOS%0.0 %Critically low0.9-7.0Main Campus Medical CenterComment on above: Performed By: #### POCGLUC #### [facility] [address] [place] [address] José Luis GphkfRNU94.0 %Critically low42.0-54.0The [facility] HospitalComment on above:Performed By: #### POCGLUC #### [facility] [address] [place] [address] José Luis EspnzJAC00.0 g/dlCritically low14.0-18.0The [facility] HospitalComment on above:Performed By: #### POCGLUC #### [facility] [address] [place] [address] José Luis KarenLYMPHM #0.18 103/ulCritically low1.20-3.80The [facility] Comment on above:Performed By: #### POCGLUC #### [facility] [address] [place] [address] José Luis KarenLYMPHM%1.0 %Critically low20.5-60.0The [facility] HospitalComment on above:Performed By: #### POCGLUC #### [facility] [address] [place] [address] José Luis MathurenMCH28.6 stNkpoll46.9-34.0The [facility] HospitalComment on above: Performed By: #### POCGLUC #### [facility] [address] [place] [address] José Luis MathurWtlbyPZJE33.7 g/bsAmbjuj22.9-35.2The [facility] HospitalComment on above: Performed By: #### POCGLUC #### [facility] [address] [place] [address] José Luis MathurenMCV90.1 bGYiojei59.0-94.0The [facility] HospitalComment on above: Performed By: #### POCGLUC #### [facility] [address] [place] [address] José Luis KarenMETAMYELOCYTE #NormalThe [facility] HospitalComment on above:Performed By: #### POCGLUC #### [facility] [address] [place] [address] José Luis KarenMETAMYELOCYTE %NormalThe [facility] HospitalComment on above:Performed By: #### POCGLUC #### [facility] [address] [place] [address] José Luis KarenMONOM#0.55 103/ulNormal0.30-0.80The [facility] HospitalComment on above:Performed By: #### POCGLUC #### [facility] [address] [place] [address] José Luis KarenMONOM%3.0 %Normal1.7-12.0The [facility] HospitalComment on above: Performed By: #### POCGLUC #### [facility] [address] [place] [address] José Luis LidcuZDH18.1 fLNormal9.5-13.5The [facility] HospitalComment on above: Performed By: #### POCGLUC #### [facility] [address] [address] José Luis KarenMYELOCYTE #NormalThe [facility] HospitalComment on above:Performed By: #### POCGLUC #### [facility] [address] [address] José Luis KarenMYELOCYTE %NormalThe [facility] HospitalComment on above:Performed By: #### POCGLUC #### [facility] [address] [place] [address] José Luis KarenNRBCNormalThe [facility]ay HospitalComment on above:Performed By: #### POCGLUC #### [facility] [address] [place] [address] José Luis GheyrOWI761 103/blKkjrkl503-783Ivz [facility] HospitalComment on above: Performed By: #### POCGLUC #### [facility] [address] [place] [address] José Luis KarenRBC4.55 106/ulCritically low4.70-6.10The [facility] HospitalComment on above:Performed By: #### POCGLUC #### [facility] [address] [place] [address] José Luis RbqgtOEH84.6 %Critically high11.0-15.0The [facility] HospitalComment on above:Performed By: #### POCGLUC #### [facility] [address] [place] [address] José Luis KarenSEG #17.57 103/ulCritically high1.40-6.50The [facility] Comment on above:Performed By: #### POCGLUC #### [facility] [address] [place] [address] José Luis KarenSEG %96.0 %Critically high43.0-75.0The [facility] HospitalComment on above:Performed By: #### POCGLUC #### [facility] [address] [place] [address] José Luis ZuvnmFUE01.3 103/ulCritically high4.0-11.0The [facility] HospitalComment on above:Performed By: #### POCGLUC #### [facility] [address] [address] José Luis Browning ABD/PELV W CONon [id number] ABD/PELV W CONEXAMINATION: CT ABD/PELV W CON [...] authenticated by: CINDI SOMMER Date: 2021-06-03 14:15NormalThe [facility] HospitalCULTURE BLOODon [id number] examination of blood, cultureCulture Observations: NO GROWTH AT 5 DAYS.NormalThe [facility] HospitalComment on above:Performed By: #### BLDCX2 #### [facility] [address] [address] [address] Freda Gleason-19 PCR ([facility])on 41-43-7035SDYA-CoV-2 (COVID-19) RNA SHRUTI+probe Ql (Unsp spec)Not detectedNormalNOT DETECTEDThe [facility] Comment on above:Result Comment: When diagnostic testing is negative, the possibility of a false negative should be considered in the context of a patient's recent exposures and the presence of clinical signs and symptoms consistent with SARS-CoV-2. This test is not yet approved or cleared by the [place] Food and Drug Administration (FDA). This test was developed by [employer], [place], [place]. The performance characteristics of this test were validated by [facility]. The results are not intended to be used as the sole means for clinical diagnosis or patient management decisions. [facility] is authorized under Clinical Laboratory Improvement [...] for this test is supported by the [employer] of Health and Human Service's declaration that [...] longer be used).Performed By: #### CBCMAN #### [facility] [address] [place] [address] Dr. Barba ChangEMeka URINE PROFILEon 67-35-8788Cffuibcae Ql (U)NegativeNormal NEGATIVEMain Campus Medical CenterComharbor oaks hospital on above:Performed By: #### POCGLUC #### [facility] [address] [place] [address] José Luis KarenClarity (U)CLEARNormalCLEARThe [facility] HospitalComment on above: Performed By: #### POCGLUC #### [facility] [address] [place] [address] José Luis KarenColor (U)YELLOWNormalYELLOWRegency Hospital Cleveland East on above: Performed By: #### POCGLUC #### [facility] [address] [place] [address] José Luis KarenERUAHDA micrscopic examination will be performed if indicated.Normal The [facility] HospitalComment on above:Performed By: #### POCGLUC #### [facility] [address] [place] [address] José Luis KarenGlucose Ql (U)100 mg/dlAbnormalNEGATIVEMain Campus Medical CenterComment on above:Performed By: #### POCGLUC #### [facility] [address] [place] [address] José Luis KarenHemoglobin Ql (U)NegativeNormalNEGATIVEHolzer Health System HospitalComment on above:Performed By: #### POCGLUC #### [facility] [address] [place] [address] José Luis KarenKetones Ql (U)NegativeNormalNEGATIVEMain Campus Medical CenterComment on above:Performed By: #### POCGLUC #### [facility] [address] [place] [address] José Luis KarenLEUKOCYTESNegativeNormalNEGATIVEMain Campus Medical CenterComment on above:Performed By: #### POCGLUC #### [facility] [address] [place] [address] José Luis KarenNitrite Ql (U)NegativeNormalNEGATIVEMain Campus Medical CenterComment on above:Performed By: #### POCGLUC #### [facility] [address] [place] [address] José Luis KarenpH (U)6.0 [pH]Normal5-9Main Campus Medical CenterComment on above: Performed By: #### POCGLUC #### [facility] [address] [place] [address] José Luis KarenProtein (U) [Mass/Vol]30 mg/dLAbnormalNEGATIVE/ TRACEMain Campus Medical CenterComment on above:Performed By: #### POCGLUC #### [facility] [address] [place] [address] José Luis KarenSPEC GRAVITY1.773Pjwfrk7.005-<=1.025Main Campus Medical CenterComment on above:Performed By: #### POCGLUC #### [facility] [address] [place] [address] José Luis MathurenUR MICRO INDINDICATEDNormalThe [facility] HospitalComment on above: Performed By: #### POCGLUC #### [facility] [address] [place] [address] José Luis KarenUrobilinogen Qn (U)1.0 {Bassem'U}/dLNormal0.2 - 1.0The [facility] HospitalComment on above:Performed By: #### POCGLUC #### [facility] [address] [place] [address] José Luis KarenLACTATE/LACTIC ACIDon 55-71-5590Bmejzhu [Moles/Vol]2.0 mmol/LNormal 0.7-2.0The [facility] HospitalComment on above:Performed By: #### POCGLUC #### [facility] [address] [place] [address] Dr. Freda WayneLIPASEon 06-04-9292Umskpd [Catalytic activity/Vol]207.0 U/LNormal 23.0-300.0The [facility] HospitalComment on above:Performed By: #### POCGLUC #### [facility] [address] [place] [address] Dr. Freda Munson OF CARE GLUCOSEon 14-56-6255Erwdpzd [Mass/Vol]107 mg/dL Critically moyw61-456Lay [facility] HospitalComment on above:Performed By: #### POCGLUC #### [facility] [address] [place] [address] José Luis KarenPROF 14(COMP METB)on 88-45-0790Twtfmpz [Mass/Vol]3.9 g/dLNormal 3.5-5.0The [facility] HospitalComment on above:Performed By: #### POCGLUC #### [facility] [address] [place] [address] Dr. Freda WayneAlbumin/Globulin [Mass ratio]1.1 {ratio}NormalThe [facility] HospitalComment on above:Performed By: #### POCGLUC #### [facility] [address] [place] [address] Dr. Yilan ChangALP [Catalytic activity/Vol]181 U/LCritically ugau80-737Qzl [facility] HospitalComment on above:Performed By: #### POCGLUC #### [facility] [address] [place] [address] Dr. Freda PearsonT [Catalytic activity/Vol]196 U/LCritically mzaw73-42Zmi [facility] HospitalComment on above:Performed By: #### POCGLUC #### [facility] [address] [place] [address] Dr. Freda Busch gap [Moles/Vol]15.4 mmol/LNormalMain Campus Medical Center Comment on above:Performed By: #### POCGLUC #### [facility] [address] [place] [address] Dr. Freda WayneAST [Catalytic activity/Vol]217 U/LCritically tamm80-67Yzi [facility] HospitalComment on above:Performed By: #### POCGLUC #### [facility] [address] [place] [address] Dr. Freda WayneBilirubin [Mass/Vol]1.1 mg/dLNormal0.2-1.3TAdena Health System Comment on above:Performed By: #### POCGLUC #### [facility] [address] [place] [address] Dr. Freda WayneCalcium [Mass/Vol]9.7 mg/dLNormal8.4-10.2[facility] Comment on above:Performed By: #### POCGLUC #### [facility] [address] [place] [address] Dr. Freda WayneChloride [Moles/Vol]101 mmol/VQilioj54-487CbqMain Campus Medical Center Comment on above:Performed By: #### POCGLUC #### [facility] [address] [place] [address] Dr. Freda WayneCO2 [Moles/Vol]24.4 mmol/SFvglpb60.0-30.0[facility] Comment on above:Performed By: #### POCGLUC #### [facility] [address] [place] [address] Dr. Freda WayneCreatinine [Mass/Vol]1.16 mg/dLNormal0.66-1.25The [facility] HospitalComment on above:Performed By: #### POCGLUC #### [facility] [address] [place] [address] Dr. Freda BergmanGFR-AF CONGOLESE>60Normal>=60The [facility] HospitalComment on above:Performed By: #### POCGLUC #### [facility] [address] [address] [address] Freda BergmanGFR-NON AF CONGOLESE>60Normal>=60[facility] Medical CenterComment on above:Performed By: #### POCGLUC #### [facility] [address] [place] [address] Dr. Freda WayneGlobulin (S) [Mass/Vol]3.6 g/dLNormalThe [facility] HospitalComment on above:Performed By: #### POCGLUC #### [facility] [address] [place] [address] Dr. Freda WayneGlucose [Mass/Vol]213 mg/dLCritically woka61-855RaoMain Campus Medical CenterComment on above:Performed By: #### POCGLUC #### [facility] [address] [place] [address] Dr. Freda WaynePotassium [Moles/Vol]3.8 mmol/LNormal3.4-5.0[facility] Comment on above:Performed By: #### POCGLUC #### [facility] [address] [place] [address] Dr. Freda WayneProtein [Mass/Vol]7.5 g/dLNormal6.1-8.2[facility] Comment on above:Performed By: #### POCGLUC #### [facility] [address] [place] [address] Dr. Freda WayneSodium [Moles/Vol]137 mmol/ZRytgwq011-106AanMain Campus Medical Center Comment on above:Performed By: #### POCGLUC #### [facility] [address] [place] [address] Dr. Freda WayneUrea nitrogen [Mass/Vol]16.0 mg/dLNormal9.0-20.0[facility] Medical CenterComment on above:Performed By: #### POCGLUC #### [facility] [address] [place] [address] Dr. Freda Fernandez nitrogen/Creatinine [Mass ratio]13.8 mg/mgNoMercy Health Urbana HospitalComment on above:Performed By: #### POCGLUC #### [facility] [address] [place] [address] Dr. Freda WaynePROTIMEon 58-27-9489IYK Coag (PPP) [Relative time]1.05 {INR} NormalThe [facility] HospitalComment on above:Performed By: #### PT, PTT #### [facility] [address] [place] [address] Dr. Freda Genao GUIDELINESSEE BELOWMiddletown HospitalComment on above:Result Comment: DESIRED INR: 2.0 - 3.0 CONDITIONS NOT LISTED BELOW 2.5 - 3.5 FOR PROSTHETIC HEART VALVE REPLACEMENT 2.5 - 3.5 RECURRENT THROMBOSIS Performed By: #### PT, PTT #### [facility] [address] [place] [address] Dr. Freda WaynePT Coag (PPP) [Time]11.3 sNormal9.0-11.6The [facility] Comment on above:Performed By: #### PT, PTT #### [facility] [address] [place] [address] Dr. Freda Fitzgerald 21-46-7512bPAE Coag (Bld) [Time]28.2 gYemzel48.3-36.2[facility] on above:Performed By: #### PT, PTT #### [facility] [address] [place] [address] Dr. Freda Marino, HIGH SENSITIVITYon 57-50-6237AYSBMT06.8 pg/mLNormal 4.0-42.2[facility] on above:Result Comment: CUT-OFF POINTS HAVE BEEN ESTABLISHED BASED ON THE FOURTH UNIVERSAL DEFINITIONS OF MYOCARDIAL INFARCTION. THE UPPER REFERENCE LIMIT (URL) OF TROPONIN, DEFINED THE 99TH PERCENTILE OF cTnI DISTRIBUTION IN A REFERENCE POPULATION, HAS BEEN CONFIRMED THE DECISION THRESHOLD FOR WA DIAGNOSIS.Performed By: #### POCGLUC #### [facility] [address] [place] [address] Dr. Freda SHELDONon 66-89-6391CAVILTBIUHQU SEENNormalNONE SEENRegency Hospital [facility] on above:Performed By: #### POCGLUC #### [facility] [address] [place] [address] José Luis KarenBacteria identified Cx Nom (U)NOT INDICATEDNormalThLicking Memorial HospitalComharbor oaks hospital on above:Performed By: #### POCGLUC #### [facility] [address] [place] [address] José Luis KarenCASTNONE SEENNormalNONE SEENRegency Hospital [facility] on above: Performed By: #### POCGLUC #### [facility] [address] [place] [address] José Luis KarenCrystals LM Nom (Urine sed)NONE SEENNormalNONE SEENRegency Hospital [facility] on above:Performed By: #### POCGLUC #### [facility] [address] [place] [address] José Luis KarenEpithelial cells LM Ql (Urine sed)RARENormalNONE SEEN /RARERegency Hospital [facility] East on above:Performed By: #### POCGLUC #### [facility] [address] [place] [address] José Luis KarenMUCOUSTRACEAbnormalNONE SEENRegency Hospital [facility] on above: Performed By: #### POCGLUC #### [facility] [address] [place] [address] José Luis MhfswYEL4-7Dsnrll2-5JmzRegency Hospital [facility] on above:Performed By: #### POCGLUC #### [facility] [address] [place] [address] José Luis KarenWBC0-2AbnormalNONE SEENMain Campus Medical CenterComhar[facility]aks [facility] on above: Performed By: #### POCGLUC #### [facility] [address] [place] [address] José Luis Valdez SINGLE QUAD RT UPPERon [id number] SINGLE QUAD RT UPPER EXAMINATION: US SINGLE [...] Electronically authenticated by: CINDI SOMMER Date: 2021-06-03 09:27[facility] 1 Von [id number] CHEST 1 VEXAMINATION: XR CHEST 1 V [...] Electronically authenticated by: CINDI SOMMER Date: 2021-06-03 09:56[facility] - Heme Onc Schedulingon 79-02-3778Rbdwuw Note - Heme Onc SchedulingRetrieve Patient Instructions: Patient Instructions: Patient Instructions: RetrievePatient Instructions COMMUNICATION ORDERS NOTES: Communication Orders NotesPer scheduling note on appointment wifes patient wants apt on 08/26 End of Visit Documentation: Clinic Location/Phone Number: Clinic Location/Phone Number: [address] [address] End Of Visit MU Report Item: Visit Summary given or mailed to patientyes Mailed Appointments Electronic Signatures: Candice Shirley (PT ACCT REP) (Signed 22-May-2021 10:02) Authored: Retrieve Patient Instructions, COMMUNICATION ORDERS NOTES, End of Visit Documentation Last Updated: 22-May-2021 10:02 by Candice Shirley (PT ACCT REP)[facility]Follow Up Visiton 05-20-2021 Clinic Note - Heme Onc-Follow Up VisitPatient Visit Information: Visit Type: Follow Up Visit History of Present Illness: ID Statement: YUSEF CAR is a 71 year old Male Chief Complaint: Duodenal neuroendocrine tumor Interval History: 70 years old gentleman from [place], [place] who has been referred to me from [facility]. The patient complained of acid reflux [...] cysts. 6. No (more content not included)...NormalUH [facility]Cl[facility] - Intakeon 37-40-7091Xnyezt Note - IntakePatient Visit Information: Visit TypeFollow [...] 3 Weights & HeightsDate: Weight/Scale Type:Height: 04-Feb-2021 09:34566 kg / standing uclfy611.8 cm 07-Jan-2021 13:76844 kg / standing ybepl817.8 cm 19-Dec-2020 13:36481 kg / standing ckums596.8 cm SpO2 (%)98 % SpO2 Patient Onroom [...] falls riskimplement environmental risk factors interventions Spiritual/Procedural: Spiritual/cultural/buddhism practices important for us to knowno Oncology [...] or > notify clinician2 Electronic Signatures: Edith Ruvalcaba (SARAH) (Signed 20-May-2021 12:55) Authored: Patient Visit Information, Vital Signs, Allergies, Outpatient Medication Profile, Notification, Travel History, Falls, Spiritual/Procedural, Oncology Nutrition Last Updated: 20-May-2021 12:55 by Edith Ruvalcaba (SARAH)[facility] - challengeon 05-01-2021 Glucose [Mass/Vol]132 mg/dLabove high htefqouix54 - 99 UM-Iebgppbejuhydmhz-Khvqfcqj SJW 450 DO Work Phone: No Panel Informationon 05-01-2021 XP-Lewhdyadazlbenzw-Entklsab SJW 450 DO Work Phone: [email or web address]?={[email or web address]}YY-Bqahakyhrblllopq-Elymldgm SJW 450 DO Work Phone: [phone]-Dqrivfcqjqybfqvi-[facility] DO Work Phone: Coronavirus 2019 RNA by PCR, Screening Asymptomticon 89-38-3402Jkzzknldnrm 2019 RNA by PCR, Screening AsymptomticNot detectedNormal See DjxytLW-Yhzzqosgsbuuqhcv-Zvwxjqze SJW 450 DO Work Phone: Comment on [...] make patient management decisions.Fact sheet for providers: https://www.fda.gov/media/244068/downloadFact sheet for patients: https://www.fda.gov/media/473970/downloadThis test has received FDA Emergency Use Authorization (EUA) and has been verified by [facility] ([facility]). This test is only authorized for the duration of time that circumstances exist to justify the authorization of the emergency use of in vitro diagnostic tests for the detection of SARS-CoV-2 virus and/or diagnosis of COVID-19 infection under section 564(b)(1) of the Act, 21 U.S.C. 360bbb- 3(b)(1), unless the authorization is terminated or revoked sooner. [facility] is certified under CLIA-88 as qualified to perform high complexity testing. Testing is performed in the [facility] laboratories located at [address] [place] [address].Provider Communicationon 90-56-8221Kxgwmgox CommunicationDear Dr. Steele, Dr. Knowles and Dr. [...] should questions arise Sincerely, Irwin Cespedes MD, [facility] [place] Clinical Value Stream Manager Advanced Therapeutic Endoscopy Gastroenterology [facility] [employer] [facility] [place] [id number] [place] [address] Patient Care Team Care Team MemberRoleSpecialtyOffice Number Cedric HERNANDEZ, Vanessa [facility] Care ProviderOptim Medical Center - [phone] Active Problems Problems BPH with obstruction/lower urinary [...] Feb 05 2021 2:42PM EST (Author) Normal TouchworksLaboratory - Chemistry and Chemistry - challengeon 01-23-2021 Glucose [Mass/Vol]106 mg/dLabove high qagamdacj53 - 99 GR-Rjokllihylwdhwtg-Dbxdgawa SJW 450 DO Work Phone: No Panel Informationon 01-23-2021 UO-Gjiyafhgvorppuvu-Mykfltkg SJW 450 DO Work Phone: [email or web address]?={[email or web address]}XH-Npfomfspxzdfatoi-Sqitmcmk SJW 450 DO Work Phone: [phone]-Esefyqqmfqknplcy-Volga SJW 450 DO Work Phone: Complete Blood Count + Differentialon 01-11-2021 Basophils/100 WBC (Bld)0.4 %0.0 - 2.0[facility] Work Phone: [phone] distribution width (RBC) [Ratio]15.6 % above high thresholdSee [facility] Work Phone: [phone] on above:Reference Range: 11.5 - 14.5 Hematocrit (Bld) [Volume fraction]40.9 %below low thresholdSee [facility] Work Phone: [phone] on above:Reference Range: 41.0 - 52.0 Hemoglobin (Bld) [Mass/Vol]12.9 g/dLbelow low thresholdSee [facility] Work Phone: [phone] on above:Reference Range: 13.5 - 17.5 Lymphocytes/100 WBC (Bld)16.1 %See [facility] Work Phone: [phone] on above:Reference Range: 13.0 - 44.0MCHC (RBC) [Mass/Vol]31.5 g/dLbelow low thresholdSee [facility] Work Phone: Comment on above:Reference Range: 32.0 - 36.0MCV (RBC) [Entitic vol]92 fL80 - 100[facility] Work Phone: Monocytes/100 WBC (Bld)7.4 %2.0 - 10.0[facility] Work Phone: [phone]/100 WBC (Bld)73.8 %See [facility] Work Phone: Comment on above:Reference Range: 40.0 - 80.0Platelets (Bld) [#/Vol]360 10*3/uL150 - 450[facility] Work Phone: RBC (Bld) [#/Vol]4.45 {x10E12/L}below low thresholdSee [facility] Work Phone: [phone] on above:Reference Range: 4.50 - 5.90WBC (Bld) [#/Vol]7.7 10*3/uL4.4 - 11.3[facility] Work Phone: [phone] Blood Count + Differential0.03 {x10E9/L}See [facility] Work Phone: [phone] on above:Reference Range: 0.00 - 0.10Complete Blood Count + Differential0.15 {x10E9/L}See [facility] Work Phone: [phone] on above:Reference Range: 0.00 - 0.40Complete Blood Count + Differential0.57 {x10E9/L}See [facility] Work Phone: [phone] on above:Reference Range: 0.05 - 0.80Complete Blood Count + Differential1.24 {x10E9/L}See [facility] Work Phone: [phone] on above:Reference Range: 0.80 - 3.00Complete Blood Count + Differential5.68 {x10E9/L}above high thresholdSee [facility] Work Phone: [phone] on above:Reference Range: 1.60 - 5.50Complete Blood Count + Differential2.0 %0.0 - 6.0[facility] Work Phone: [phone] Blood Count + Differential0.3 %0.0 - 0.9 [facility] Work Phone: [phone] on above:Immature Granulocyte Count (IG) includes promyelocytes, myelocytes and metamyelocytes but does not include bands. Percent differential counts (%) should be interpreted in the context of the absolute cell counts (cells/L).Laboratory - Chemistry and Chemistry - challengeon 42-14-3977Xsqaeby BCP dye [Mass/Vol]4.1 g/dL3.4 - 5.0[facility] Work Phone: ALP [Catalytic activity/Vol]82 U/L33 - 136[facility] Work Phone: [phone] With P-5'-P [Catalytic activity/Vol]12 U/L10 - 52 [facility] Work Phone: [phone] on above:Patients treated with Sulfasalazine may generate falsely decreased results for ALT.Anion gap [Moles/Vol]12 mmol/L10 - 20[facility] Work Phone: [phone] With P-5'-P [Catalytic activity/Vol]12 U/L9 - 39 [facility] Work Phone: [phone] [Mass/Vol]0.5 mg/dL0.0 - 1.2[facility] Work Phone: [phone] [Mass/Vol]9.8 mg/dL8.6 - 10.3[facility] Work Phone: [phone] [Moles/Vol]103 mmol/L98 - 107[facility] Work Phone: [phone] [Moles/Vol]30 mmol/L21 - 32[facility] Work Phone: [phone] [Mass/Vol]1.20 mg/dLSee BelowPremier Health [facility] Work Phone: [phone] on above:Reference Range: 0.50 - 1.30Glucose [Mass/Vol]147 mg/dLabove high - 99[facility] Work Phone: [phone] [Moles/Vol]4.5 mmol/L3.5 - 5.3[facility] Work Phone: [phone] [Mass/Vol]7.0 g/dL6.4 - 8.2[facility] Work Phone: [phone] [Moles/Vol]140 mmol/L136 - 145[facility] Work Phone: [phone] nitrogen [Mass/Vol]19 mg/dL6 - 23[facility] Work Phone: [phone] Liver w/wo Contraston 58-66-9640MC Liver WO and W contrast IVNormalUniHCA [facility] Work Phone: [phone] Panel Informationon 57-84-792711 {mL/min/1.73m2}>60 [facility] Work Phone: [phone] on above:CALCULATIONS OF ESTIMATED GFR ARE PERFORMED USING THE MDRD STUDY EQUATION FOR THE IDMS-TRACEABLE CREATININE METHODS. CLIN CHEM 2007;53:766-9160 {mL/min/1.73m2}Abnormal>60[facility] Work Phone: Prostate Specific Antigenon 46-87-7843Fdduwble specific Ag [Mass/Vol]0.29 ng/mLSee BelowPremier Health Upper Valley [facility] Center Work Phone: Comment on above:Reference Range: 0.00 - 4.00The FDA requires that the method used for PSA assay be reported to the physician. Values obtained with different assay methods must not be used interchangeably. This test was performed at [facility] using the [employer] PSA method, which is a sandwich immunoassay using chemiluminescence for quantitation. The assay is approvedfor measurement of prostate-specific antigen (PSA) in serum and may be used in conjunction with a digital rectalexamination in men 50 years and older as an aid in detection of prostate cancer. 9-Vpuoe-ajcdfcdqn inhibitors (e.g. Proscar, Finasteride, Avodart, Dutasteride and Crystal) for the treatment of BPH have been shownto lower PSA levels by an average of 50% after 6 months of treatment.Follow Up (General Surgery)on 20-23-6062Rfzoaj Up (General Surgery)Diagnoses/Problems Primary malignant neuroendocrine neoplasm [...] visit. 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 He underwent EGD on 11/28/2020 at the [facility] in [facility] for a longstanding history ofgastroesophageal reflux disease, [...] Calcium 10 MG Oral Tablet Results/Data Gastrin, Zmgja91Dil7730 08:49AMNon Ambulatory, Provider Ordering Provider: NEFTALI KNOWLES [address] Test NameResultFlagReference Gastrin, Serum21 pg/mL0-100 Performed By: [facility] [address] [place] [address] Branch Operations Manager: TracyI. Jai MD CT Abdomen and Pelvis with IV Scaqqjou70Ctt4944 05:35PMNon Ambulatory, Provider Ordering Provider: NEFTALI KNOWLES [address] Abdomen and Pelvis with [...] for staging purposes. COMPARISON: None. ACCESSION NUMBER(S): [id number] ORDERING CLINICIAN: NEFTALI KNOWLES TECHNIQUE: CT of [...] (more content not included)...NormalUH TouchworksOffice Visit (Urology)on 30-57-2660Hrmtiz-up visitDiagnoses/Problems Assessed BPH with obstruction/lower urinary tract [...] Tablet Vitals Vital Signs Recorded: 08Jan2021 02:15PM Qpfjrygnrvt86.5 F Heart Rate76 Owhxdgek248 Tvultiayy48 Height5 ft 10 in Okehgx453 lb BMI Znnjyhwfxp94.87 kg/m2 BSA Calculated2.27 Tobacco Useb) No Fall [...] Results/Data CT Abdomen and Pelvis with IV Liisnuif90Vum6574 05:35PM[facility] Provider Ordering Provider: NEFTALI KNOWLES [address] Abdomen and Pelvis with [...] st (more content not included)...NormalUH TouchworksTobacco Screening.on 01-27-4221Bkks risk assessmenta) No falls within the last njbxRZ-Rdyywra-DehgmquMyMichigan Medical Center Work Phone: [phone] use status CPHSb) RlUN-Znicrdx-ApxynseMclaren [facility] Work Phone: [phone] Blood Count + Differentialon 12-26-2020 Hematocrit (Bld) [Volume fraction]SlgjcgccEL-Drvytsb-HlagpelMyMichigan Medical Center Work Phone: [phone] (Bld) [Mass/Vol]ZmtzramsUP-Knyybsx-IqnewjrMyMichigan Medical Center Work Phone: [phone] (Bld) [#/Vol]HvohtitbYI-Vcsxgtq-VfdgamuMyMichigan Medical Center Work Phone: [phone] (Bld) [#/Vol]MwgtsydqHI-Winatdy-MwfcuuwMyMichigan Medical Center Work Phone: [phone] Blood Count + DifferentialCanceled [facility] Work Phone: [phone] on above:Immature Granulocyte Count (IG) includes promyelocytes, myelocytes and metamyelocytes but does not include bands. Percent differential counts (%) should be interpreted in the context of the absolute cell counts (cells/L).CALCULATIONS OF ESTIMATED GFR ARE PERFORMED USING THE MDRD STUDY EQUATION FOR THE IDMS-TRACEABLE CREATININE METHODS. CLIN CHEM 2007;53:766-72Gastrin, Serumon 74-55-1674Ddpbczl [Mass/Vol]21 pg/mL0-100 [facility] Work Phone: [phone] on above:Performed By: [facility] [place] [address]Bnxtxekroe Director: Katharine Carrillo MD Laboratory - Chemistry and Chemistry - challengeon 69-76-2110Qujvrol BCP dye [Mass/Vol]FwrlnleqUJ-Vmhgpxo-UwwzjwzMyMichigan Medical Center Work Phone: [phone] [Catalytic activity/Vol]GjmjnzsvEG-Hrjxuaj-RzbmgveMyMichigan Medical Center Work Phone: [phone] With P-5'-P [Catalytic activity/Vol]Canceled AH-Morutwv-HylnjmjMymichigan Medical Center [facility] Work Phone: [phone] on above:Patients treated with Sulfasalazine may generate falsely decreased results for ALT.AST With P-5'-P [Catalytic activity/Vol]JkkcorgqES-Pdxwwwa-MsnkkmjMymichigan Medical Center [facility]aw Work Phone: [phone] [Mass/Vol]ZnwkgtncDW-Aaiobez-LfheegtMymichigan Medical Center [facility] Work Phone: [phone] [Mass/Vol]IighbjvmMO-Igtulkc-MtiwwkwMymichigan Medical Center [facility] Work Phone: [phone] [Moles/Vol]JsdivgknSA-Zgjaadu-PvkaefrMyMichigan Medical Center Work Phone: [phone] [Moles/Vol]HjelthtzVS-Minzwsd-YbmiaxbMyMichigan Medical Center Work Phone: [phone] [Mass/Vol]BrdgzerbRJ-Pxlvauq-TfipnubMymichigan Medical Center [facility] Work Phone: [phone] [Mass/Vol]VtkivwokTF-Pnduugj-MntlwgqMyMichigan Medical Center Work Phone: [phone] [Moles/Vol]FgekgvjzPR-Bhfubvl-HhsxajxMyMichigan Medical Center Work Phone: [phone] [Mass/Vol]VaxhlyheQN-Nlxddqs-DofrspkMyMichigan Medical Center Work Phone: [phone] [Moles/Vol]GkuqnzycMI-Vbjqiuv-EuktjxpMymichigan Medical Center [facility] Work Phone: [phone] nitrogen [Mass/Vol]FxskuxeaNE-Ywzdvtg-DxijhjwMyMichigan Medical Center Work Phone: [phone] Abdomen and Pelvis with IV Contraston 42-97-6468IU Abdomen and Pelvis W contrast NBFkwoowBD-Jyitszc-IezmjnjMymichigan Medical Center [facility]aw Work Phone: [phone] Blood Count + Differentialon 12-25-2020 Basophils/100 WBC (Bld)0.2 %0.0 - 2.3FD-Uvlivbs-TdjlpqdMymichigan Medical Center [facility] Work Phone: [phone] distribution width (RBC) [Ratio]15.7 % above high thresholdSee EeupsUP-Gwrmmir-PyshepsMyMichigan Medical Center Work Phone: [phone] on above:Reference Range: 11.5 - 14.5 Hematocrit (Bld) [Volume fraction]40.2 %below low thresholdSee Below [facility] Work Phone: [phone] on above:Reference Range: 41.0 - 52.0 Hemoglobin (Bld) [Mass/Vol]13.0 g/dLbelow low thresholdSee Below [facility] Work Phone: [phone] on above:Reference Range: 13.5 - 17.5 Lymphocytes/100 WBC (Bld)14.4 %See AasjaWJ-Fqmsifk-EkdotnvMyMichigan Medical Center Work Phone: [phone] on above:Reference Range: 13.0 - 44.0MCHC (RBC) [Mass/Vol]32.3 g/dLSee WbojaVW-Mtgmrwc-YeigrwzMyMichigan Medical Center Work Phone: [phone] on above:Reference Range: 32.0 - 36.0MCV (RBC) [Entitic vol]89 fL80 - 931KS-Hktqvmj-GkpoqdkMyMichigan Medical Center Work Phone: [phone]/100 WBC (Bld)7.5 %2.0 - 10.0 [facility] Work Phone: [phone]/100 WBC (Bld)76.9 %See Below [facility] Work Phone: [phone] on above:Reference Range: 40.0 - 80.0Platelets (Bld) [#/Vol]401 10*3/uL150 - 914BX-Rxxweno-XdzdbldMyMichigan Medical Center Work Phone: [phone] (Bld) [#/Vol]4.50 {x10E12/L}See Below [facility] Work Phone: [phone] on above:Reference Range: 4.50 - 5.90WBC (Bld) [#/Vol]11.4 10*3/uLabove high threshold4.4 - 11.6LD-Ahyodni-IlyzsqwSelect [facility] Work Phone: [phone] Blood Count + Differential0.02 {x10E9/L}See TddufGR-Uejoigw-KunnrmuMyMichigan Medical Center Work Phone: [phone] on above:Reference Range: 0.00 - 0.10Complete Blood Count + Differential0.08 {x10E9/L}See CsctmVH-Ggjruub-QpaflubMyMichigan Medical Center Work Phone: [phone] on above:Reference Range: 0.00 - 0.40Complete Blood Count + Differential0.86 {x10E9/L}above high thresholdSee Below [facility] Work Phone: [phone] on above:Reference Range: 0.05 - 0.80Complete Blood Count + Differential1.65 {x10E9/L}See TgjllKW-Budpejm-ZqcisewMyMichigan Medical Center Work Phone: [phone] on above:Reference Range: 0.80 - 3.00Complete Blood Count + Differential8.78 {x10E9/L}above high thresholdSee Below [facility] Work Phone: [phone] on above:Reference Range: 1.60 - 5.50Complete Blood Count + Differential0.7 %0.0 - 6.7WJ-Gvldakc-MnxyparMyMichigan Medical Center Work Phone: [phone] Blood Count + Differential0.3 %0.0 - 0.9 [facility] Work Phone: [phone] on above:Immature Granulocyte Count (IG) includes promyelocytes, myelocytes and metamyelocytes but does not include bands. Percent differential counts (%) should be interpreted in the context of the absolute cell counts (cells/L).Gastrin, Serumon 40-38-2157Pbsupxt [Mass/Vol] MyufaxweSS-Ivwdijd-TeurqrzMyMichigan Medical Center Work Phone: [phone] - Chemistry and Chemistry - challengeon 43-54-1715Qmrkebp BCP dye [Mass/Vol]4.3 g/dL3.4 - 5.8RG-Xvovxnj-NzbnhcwMymichigan Medical Center [facility] Work Phone: [phone] [Catalytic activity/Vol]88 U/L33 - 136 OQ-Oywedbi-MmeumjhMymichigan Medical Center [facility] Work Phone: [phone] With P-5'-P [Catalytic activity/Vol]11 U/L10 - 52 LH-Pwqtfag-DgcdvbkMymichigan Medical Center [facility] Work Phone: [phone] on above:Patients treated with Sulfasalazine may generate falsely decreased results for ALT.Anion gap [Moles/Vol]15 mmol/L10 - 00XO-Gwhwgqa-IdgjynxMymichigan Medical Center [facility] Work Phone: [phone] With P-5'-P [Catalytic activity/Vol]12 U/L9 - 39 WN-Blygppu-PylpidxMymichigan Medical Center [facility] Work Phone: [phone] [Mass/Vol]0.4 mg/dL0.0 - 1.2 FK-Xotousw-XufgtkcMymichigan Medical Center [facility] Work Phone: [phone] [Mass/Vol]9.8 mg/dL8.6 - 10.3 AO-Fcakhrs-EokqitcMymichigan Medical Center [facility] Work Phone: [phone] [Moles/Vol]104 mmol/L98 - 107 BO-Xgmjppi-CjembjeMymichigan Medical Center [facility] Work Phone: [phone] [Moles/Vol]23 mmol/L21 - 23LV-Cdnayxs-GmpemfkMymichigan Medical Center [facility] Work Phone: [phone] [Mass/Vol]1.15 mg/dLSee Below ZQ-Ikeluia-JkwwsohMymichigan Medical Center [facility] Work Phone: [phone] on above:Reference Range: 0.50 - 1.30Glucose [Mass/Vol]101 mg/dLabove high nxjurtxzc71 - 04SW-Pzzprrl-QihesgqMymichigan Medical Center [facility] Work Phone: [phone] [Moles/Vol]4.3 mmol/L3.5 - 5.3 VC-Rnidkap-TxcawigMymichigan Medical Center [facility] Work Phone: [phone] [Mass/Vol]7.5 g/dL6.4 - 8.2AQ-Odvodaq-AuwvowdMymichigan Medical Center [facility] Work Phone: sodium [Moles/Vol]138 mmol/L136 - 145 VX-Idmhdeg-HhswbcdMymichigan Medical Center [facility] Work Phone: Urea nitrogen [Mass/Vol]30 mg/dLabove high threshold6 - 17QM-Vsaogfz-RhetqdoMymichigan Medical Center [facility] Work Phone: No Panel Informationon 12-25-2020>60>60 KZ-Avutsbq-DzageodMymichigan Medical Center [facility] Work Phone: comment on above:CALCULATIONS OF ESTIMATED GFR ARE PERFORMED USING THE MDRD STUDY EQUATION FOR THE IDMS-TRACEABLE CREATININE METHODS. 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 He will be undergoing serum gastrin level testing as well as cross-sectional imaging. I will obtain his EGD report from [facility]. It is currently unclear to me [...] Duodenal well-differentiated neuroendocrine tumor History of Present Uvqllpd18-ogut-ztf man referred to me from Dr. Johansen for duodenal well-differentiated neuroendocrine tumor. He underwent EGD on 11/28/2020 at the [facility] in [facility] for a longstanding history of [...] 2:29PM EST (Author)Normal UH TouchworksH PYLORI TISSUEon 11-28-2020H PYL TISSUE, UREASENegativeNormal NEGATIVEThe [facility] HospitalComment on above:Performed By: #### POCGLUC #### [facility] [address] [place] [address] Dr. Barba [facility] GLUCOSEon 27-02-1177Mcistiu [Mass/Vol]129 mg/dL Critically fiwu27-448Kle [facility] HospitalComment on above:Performed By: #### POCGLUC #### [facility] [address] [place] [address] José Luis KarenCovid-19 PCR (CVDTB)on 09-18-6026OHKZ-CoV-2 (COVID-19) RNA SHRUTI+probe Ql (Unsp spec)Not detectedNormalNOT DETECTEDThe [facility] Comment on above:Result Comment: This test is not yet approved or cleared by the [place] FDA. When there are no FDA-approved or cleared tests available, and other criteria are met, FDA can make tests available under an emergency access mechanism called an Emergency Use Authorization (EUA). The EUA for this test is supported by the Wafer Fabricator of Health and Human Service's (HHS's) declaration [...] consistent with SARS-CoV-2.Performed By: #### CBCMAN #### [facility] [address] [address] [address] Freda WayneFL HEPATOBILIARY SCAN W EFon 18-28-6524UL HEPATOBILIARY SCAN W EF EXAMINATION: NM HEPATOBILIARY [...] Electronically authenticated by: MARCELLO LEE Date: 2020-06-18 10:24[facility] Vital Signs Date TimeVital SignValuePerforming EputyjdelTlpoctts17-21-8668 13:48-0400Body .8 cmJonathan Petty DPM Work Phone: [facility] HospitalXwbtgsahnn07-86-4064 13:48-0400Body mass index (BMI) [Ratio]32.28 kg/r3Qxolxevisparkle Petty DPM Work Phone: [facility] HospitalTejiztvpeu50-47-3199 13:48-0400Body rqdynb744.06 kgPradeepsparkle Petty DPM Work Phone: [facility] HospitalSmkwjjaoca88-41-6880 13:48-0400Respiratory rate18 /minPradeepsparkle Petty DPM Work Phone: [facility] HospitalBsayznawam98-16-6239 11:19-0400Body temperature 98.5 [degF]Tomeka Aichholz BATCH PLANT OPERATOR-C Work Phone: [phone]10-15-2025 11:19-0400 Body hbrofs907.04 kgLisa Aichholz BATCH PLANT OPERATOR-C Work Phone: 1([phone])[address]10-15-2025 11:19-0400 Diastolic blood bjloooxi13 mm[Hg]Tomeka Aichholz BATCH PLANT OPERATOR-C Work Phone: [phone]10-15-2025 11:19-0400 Heart rate72 /minLisa Aichholz BATCH PLANT OPERATOR-C Work Phone: 1(669)[address] [place], [place] [address]279110-15-2025 11:19-0400 Respiratory rate18 /minLisa Aichholz BATCH PLANT OPERATOR-C Work Phone: [phone]10-15-2025 11:19-0400 SaO2% (BldA) [Mass fraction]96 %Tomeka Aichholz BATCH PLANT OPERATOR-C Work Phone: [phone]10-15-2025 11:19-0400 Systolic blood huumpeun802 mm[Hg]Tomeka Aichholz BATCH PLANT OPERATOR-C Work Phone: 1(062)[address]09-29-2025 09:03-0400 Body kevblh121.8 cmLisa Aichholz BATCH PLANT OPERATOR-C Work Phone: [phone])[address]09-29-2025 09:03-0400 Body mass index (BMI) [Ratio]33.5 kg/m2Lisa Aichholz BATCH PLANT OPERATOR-C Work Phone: [phone])[address]09-29-2025 09:03-0400 Body axndnbzufpq08.5 [degF]Tomeka Aichholz BATCH PLANT OPERATOR-C Work Phone: [phone])[address]09-29-2025 09:03-0400 Body dpymmz203.85 kgLisa Aichholz BATCH PLANT OPERATOR-C Work Phone: [facility]09-29-2025 09:03-0400 Diastolic blood folyfhtf00 mm[Hg]Tomeka Aichholz BATCH PLANT OPERATOR-C Work Phone: [facility]09-29-2025 09:03-0400 Heart rate36 /minLisa Aichholz BATCH PLANT OPERATOR-C Work Phone: [facility]09-29-2025 09:03-0400 Heart rate40 /minLisa Aichholz BATCH PLANT OPERATOR-C Work Phone: 1([phone] [place], [place] 5745409-29-2025 09:03-0400 Respiratory rate18 /minLisa Aichholz BATCH PLANT OPERATOR-C Work Phone: [phone]09-29-2025 09:03-0400 SaO2% (BldA) [Mass fraction]96 %Tomeka Aichholz BATCH PLANT OPERATOR-C Work Phone: [facility]09-29-2025 09:03-0400 Systolic blood mm[Hg]Tomeka Aichholz BATCH PLANT OPERATOR-C Work Phone: [facility]09-29-2025 09:03-0400 Systolic blood ckeloujc806 mm[Hg]Tomeka Aichholz BATCH PLANT OPERATOR-C Work Phone: [facility]07-28-2025 08:33-0400 Body mass index (BMI) [Ratio]33.2 kg/m2Lisa Aichholz BATCH PLANT OPERATOR Work Phone: [facility] HospitalRgmfygdarb17-56-6221 08:33-0400Body temperature 98.49 [degF]Tomeka Aichholz BATCH PLANT OPERATOR Work Phone: [facility] HospitalQcrmkcklzu73-32-1540 08:33-0400Body .96 kgLisa Aichholz BATCH PLANT OPERATOR Work Phone: [facility] HospitalTolibmrmpy52-13-9234 08:33-0400Diastolic blood bouklpbe05 mm[Hg]Tomeka Marvinholz BATCH PLANT OPERATOR Work Phone: [facility] HospitalMfhuoujkrr95-11-1446 08:33-0400Heart rate68 /min Tomeka Marvinholz BATCH PLANT OPERATOR Work Phone: [facility] HospitalNaeoovkrey41-98-3505 08:33-0400Respiratory rate18 /minLisa Aichholz BATCH PLANT OPERATOR Work Phone: [facility] HospitalQywngnhwfa71-26-5043 08:33-9494LkT8% (BldA) [Mass fraction]96 %Tomeka Marvinholz BATCH PLANT OPERATOR Work Phone: [facility] HospitalLgdcpjkaxv99-00-4645 08:33-0400Systolic blood csaslfen867 mm[Hg]Tomeka Marvinholz BATCH PLANT OPERATOR Work Phone: [facility] HospitalHlfsiqvfpw17-82-9100 14:05-0400Body mass index (BMI) [Ratio]32.4 kg/m2Lisa Marvinholz BATCH PLANT OPERATOR Work Phone: [facility] HospitalHdpwksyrpi80-57-3568 14:05-0400Body temperature 98.49 [degF]Tomeka Marvinholz BATCH PLANT OPERATOR Work Phone: [facility] HospitalHdgbcunrvm34-74-3852 14:05-0400Body glfvig839.42 kgLisa Marvinholz BATCH PLANT OPERATOR Work Phone: [facility] HospitalPrgdycrzxh32-22-7495 14:05-0400Diastolic blood iywpwrqv04 mm[Hg]Tomeka Marvinholz BATCH PLANT OPERATOR Work Phone: [facility] HospitalIuaeincouc84-45-4467 14:05-0400Heart rate24 /min Tomeka Marvinholz BATCH PLANT OPERATOR Work Phone: [facility] HospitalRyyffifita03-03-3382 14:05-0400Respiratory rate18 /minLisa Leeroyhholz BATCH PLANT OPERATOR Work Phone: [facility] HospitalFqswjonxmi92-01-9994 14:05-7303ExJ1% (BldA) [Mass fraction]95 %Tomeka Marvinholz BATCH PLANT OPERATOR Work Phone: [address] [address]Oolltecacv96-46-7583 14:05-0400Systolic blood dujguavl672 mm[Hg]Tomeka Rosado BATCH PLANT OPERATOR Work Phone: [facility] HospitalRufcopblgc63-63-3135 13:58-0400Body mass index (BMI) [Ratio]32.46 kg/m2Tomeka Wongholz BATCH PLANT OPERATOR Work Phone: [facility] HospitalPjyfuamjui78-69-8802 13:58-0400Body temperature 98.49 [degF]Tomeka Stricklandz BATCH PLANT OPERATOR Work Phone: [facility] HospitalAplharpjdr97-89-5471 13:58-0400Body .6 kgTomeka Wongholz BATCH PLANT OPERATOR Work Phone: 1(632)[phone] [place], [place] [address]Aynmahuqdm83-29-3826 13:58-0400Diastolic blood bkqxfere90 mm[Hg]Tomeka Stricklandz BATCH PLANT OPERATOR Work Phone: [facility] HospitalOnvgtdknjm58-57-1290 13:58-0400Heart rate71 /min Tomeka Rosado BATCH PLANT OPERATOR Work Phone: 1(472)458-[address] [place], [place] [address]Zazlbcwojx06-81-4853 13:58-0400Respiratory rate18 /minLisa Stricklandz BATCH PLANT OPERATOR Work Phone: [facility] HospitalEeqkuxbzey16-61-3453 13:58-1706KiL3% (BldA) [Mass fraction]96 %Tomeka Rosado BATCH PLANT OPERATOR Work Phone: [facility] HospitalErpwkpfyit87-17-4477 13:58-0400Systolic blood awwcsfpi264 mm[Hg]Tomeka Stricklandz BATCH PLANT OPERATOR Work Phone: [facility] HospitalZpfznjufwq88-97-5010 08:41-0400Body mass index (BMI) [Ratio]33.12 kg/m2Tomeka Stricklandz BATCH PLANT OPERATOR Work Phone: [facility] HospitalFdhnmnjtzx51-64-9859 08:41-0400Body temperature 97.81 [degF]Tomeka Stricklandz BATCH PLANT OPERATOR Work Phone: [facility] HospitalAqqbnbkgef46-03-7428 08:41-0400Body ohicyt905.69 kgTomeka Rosado BATCH PLANT OPERATOR Work Phone: [facility] HospitalRvafjjujir37-59-5628 08:41-0400Diastolic blood tjoeskro84 mm[Hg]Tomeka Rosado BATCH PLANT OPERATOR Work Phone: [facility] HospitalQhxwgjoovc97-81-4821 08:41-0400Heart rate56 /min Tomeka Rosado BATCH PLANT OPERATOR Work Phone: [facility] HospitalQzmgmxkpiv77-63-9239 08:41-0400Respiratory rate18 /minLisa Rosado BATCH PLANT OPERATOR Work Phone: [facility] HospitalQmewjfgrjj50-76-1004 08:41-9924PaH3% (BldA) [Mass fraction]98 %Tomeka Rosado BATCH PLANT OPERATOR Work Phone: [facility] HospitalYmtjfrivhr78-65-1525 08:41-0400Systolic blood wxtdacjy524 mm[Hg]Tomeka Rosado BATCH PLANT OPERATOR Work Phone: [facility] HospitalQmtehudcjk49-89-2027 08:29-0500Body kqmejp765.8 cmBrallen Gatica BATCH PLANT OPERATOR Work Phone: [facility] HospitalRmkovrezvh99-48-9672 08:29-0500Body mass index (BMI) [Ratio]34.09 kg/i6Wfvidonr Gatica BATCH PLANT OPERATOR Work Phone: [facility] HospitalAocwinujtl76-98-8929 08:29-0500Body temperature 98.8 [degF]Miriam Gatica BATCH PLANT OPERATOR Work Phone: [facility] HospitalHyawiznvjn21-22-6452 08:29-0500Body lartks658.78 kgBrselenaany Gatica BATCH PLANT OPERATOR Work Phone: [facility] HospitalNtgwaostsb67-26-5197 08:29-0500Diastolic blood yhpmhnja62 mm[Hg]Miriam Gatica BATCH PLANT OPERATOR Work Phone: [facility] HospitalSievfczekt81-43-8222 08:29-0500Heart rate74 /min Miriam Gatica BATCH PLANT OPERATOR Work Phone: [facility] HospitalSdryfnurnk07-12-6631 08:29-0500Respiratory rate22 /minBrittany Gatica BATCH PLANT OPERATOR Work Phone: [facility] HospitalXgojpwgpem14-98-0781 08:29-4092XtY5% (BldA) [Mass fraction]96 %Miriam Gatica BATCH PLANT OPERATOR Work Phone: [facility] HospitalOjajfnjyyt37-70-5070 08:29-0500Systolic blood nhtjzpod448 mm[Hg]Miriam Gatica BATCH PLANT OPERATOR Work Phone: [phone] HospitalGpqwisjyhz25-99-0374 11:11-0500Body temperature 97.5 [degF]Jeremiah Magaña MD Work Phone: 1(360)[address] [place], [place] 2844501-16-2025 11:11-0500 Diastolic blood cvaoxvse74 mm[Hg]Jeremiah Magaña MD Work Phone: 1(683)[address] [place], [place] 2844501-16-2025 11:11-0500 Heart rate79 /minJeremiah Magaña MD Work Phone: 1(151)[address] [place], [place] 2844501-16-2025 11:11-0500 Respiratory rate18 /Africa Magaña MD Work Phone: 1(754)[address] [place], [place] 2844501-16-2025 11:11-0500 SaO2% (BldA) [Mass fraction]95 %Jeremiah Magaña MD Work Phone: 1(285)[address] [place], [place] 2844501-16-2025 11:11-0500 Systolic blood meyyqhwq044 mm[Hg]Jeremiah Magaña MD Work Phone: 1(719)[address] [place], [place] 2844501-16-2025 09:33-0500 Body ibwudr667.8 cmJeremiah Magaña MD Work Phone: 1(310)[address] [place], [place] 2844501-16-2025 09:33-0500 Body mass index (BMI) [Ratio]33 kg/x1SdywxJeremiah Magaña MD Work Phone: 1(598)[address] [place], [place] 284[address]01-16-2025 09:33-0500 Body vcaquo617.33 kgJeremiah Magaña MD Work Phone: [facility]01-07-2025 09:29-0500 Body mass index (BMI) [Ratio]33.96 kg/m2Joser Benson HERNANDEZ Work Phone: [facility]01-07-2025 09:29-0500 Body uuqwnldtaqr59.5 [degF]Neftali Knowles MD Work Phone: [phone])845-[facility]01-07-2025 09:29-0500 Body tvqxoq047.37 kgJoser Benson HERNANDEZ Work Phone: [phone]01-07-2025 09:29-0500 Diastolic blood wupvccbr21 mm[Hg]Neftali Knowles MD Work Phone: [phone])899-[facility]01-07-2025 09:29-0500 Heart rate82 /minJoser Benson HERNANDEZ Work Phone: 1(216)841-[facility]01-07-2025 09:29-0500 Respiratory rate18 /minNeftali Knowles MD Work Phone: [phone] [place], [place] [address]01-07-2025 09:29-0500 SaO2% (BldA) [Mass fraction]94 %Neftali Knowles MD Work Phone: [phone]01-07-2025 09:29-0500 Systolic blood mm[Hg]Neftali Knowles MD Work Phone: [phone]10-30-2024 08:50-0400 Body vgnxxa182.8 cmMattmely Sears PA Work Phone: [facility] HospitalQnbrewurqy57-47-5403 08:50-0400Body mass index (BMI) [Ratio]33.43 kg/h2Psipzpg Meyer PA Work Phone: [facility] HospitalKrxftcpifo14-66-0698 08:50-0400Body qmbnry495.69 kgMattmely Sears PA Work Phone: [facility] HospitalYqzbmukiux84-07-5662 08:29-0400Body .8 cmMiriam Atkinstrick BATCH PLANT OPERATOR Work Phone: [facility] HospitalRauasrfyrc47-67-4427 08:29-0400Body mass index (BMI) [Ratio]33.89 kg/m1PtiqzaboMiriam Cardozopatrick BATCH PLANT OPERATOR Work Phone: [facility] HospitalVajuilntas09-54-2813 08:0400Body temperature 96.3 [degF]Miriam Gatica BATCH PLANT OPERATOR Work Phone: [facility] HospitalBanxpvqzxh49-98-6959 08:040Body .14 kgBrallen Cardozopatrick BATCH PLANT OPERATOR Work Phone: [facility] HospitalCpqzwgkblj15-94-5187 08:29-0400Diastolic blood xnodlzvn99 mm[Hg]Miriam Gatica BATCH PLANT OPERATOR Work Phone: [facility] HospitalBzezxlstvv70-55-1326 08:29-0400Heart rate53 /min Miriam Laurazpatrick BATCH PLANT OPERATOR Work Phone: [facility] HospitalLgtxihjftw16-36-2255 08:29-0400Respiratory rate16 /minMiriam Cardozopatrick BATCH PLANT OPERATOR Work Phone: [facility] HospitalZlgkuihxbx20-34-3491 08:29-7861EfF3% (BldA) [Mass fraction]95 %Miriam Gatica BATCH PLANT OPERATOR Work Phone: [facility] HospitalUtpebtyvxm43-84-4839 08:29-0400Systolic blood jxzmfjxa841 mm[Hg]Miriam Gatica BATCH PLANT OPERATOR Work Phone: [facility] HospitalAlxnzruljm08-72-4709 14:15-0400Body temperature 96.8 [degF]Jeremiah Magaña MD Work Phone: [facility]07-16-2024 14:15-0400 Diastolic blood hgfnpilu05 mm[Hg]Jeremiah Magaña MD Work Phone: [facility]07-16-2024 14:15-0400 Heart rate64 /minJeremiah Magaña MD Work Phone: 1(417)[address] [place], [place] 2844507-16-2024 14:15-0400 Respiratory rate17 /Africa Magaña MD Work Phone: 1(862)[address] [place], [place] 2844507-16-2024 14:15-0400 SaO2% (BldA) [Mass fraction]96 %Jeremiah Magaña MD Work Phone: 1(376)[address] [place], [place] 2844507-16-2024 14:15-0400 Systolic blood prkkvego753 mm[Hg]Jeremiah Magaña MD Work Phone: 1(575)[address] [place], [place] 2844507-16-2024 13:08-0400 Body xiiyse608.8 cmJeremiah Magaña MD Work Phone: 1(610)[address] [place], [place] 2844507-16-2024 13:08-0400 Body mass index (BMI) [Ratio]33 kg/o2NtsjwJeremiah Magaña MD Work Phone: 1(258)[address] [place], [place] 2844507-16-2024 13:08-0400 Body vaknxm043.33 kgJeremiah Magaña MD Work Phone: 1(957)[address] [place], [place] 2844504-24-2024 10:30-0400 Diastolic blood wcqqwbud55 mm[Hg]Jeremiah Magaña MD Work Phone: 1(773)[address] [place], [place] 2844504-24-2024 10:30-0400 Heart rate71 /Africa Magaña MD Work Phone: 1(979)[address] [place], [place] 2844504-24-2024 10:30-0400 Respiratory rate16 /Africa Magaña MD Work Phone: 1(292)[address] [place], [place] 2844504-24-2024 10:30-0400 Systolic blood aixcqxuz842 mm[Hg]Jeremiah Magaña MD Work Phone: 1(825)[address] [place], [place] 2844504-24-2024 09:45-0400 Body agutblbzmci69.2 [degF]Jeremiah Magaña MD Work Phone: 1(994)[address] [place], [place] 2844504-24-2024 09:45-0400 SaO2% (BldA) [Mass fraction]95 %Jeremiah Magaña MD Work Phone: 1(262)[address] [place], [place] 2844504-24-2024 06:39-0400 Body kuxaqx317.8 cmJeremiah Magaña MD Work Phone: 1(509)[address] [place], [place] 2844504-24-2024 06:39-0400 Body mass index (BMI) [Ratio]33 kg/s5IsnfiJeremiah Magaña MD Work Phone: 1(699)[address] [place], [place] 2844504-24-2024 06:39-0400 Body .33 kgJeremiah Magaña MD Work Phone: 1(972)[address] [place], [place] 2844512-27-2023 09:30-0500 Diastolic blood bqswvvej75 mm[Hg]Vic Mcrae MD Work Phone: 1(212)[address] [place], [place] 2844512-27-2023 09:30-0500 Heart rate62 /Corbin Mcrae MD Work Phone: 1(317)[address] [place], [place] 2844512-27-2023 09:30-0500 Respiratory rate18 /Corbin Mcrae MD Work Phone: 1(761)[address] [place], [place] 2844512-27-2023 09:30-0500 SaO2% (BldA) [Mass fraction]96 %Vic Mcrae MD Work Phone: 1(120)[address] [place], [place] 2844512-27-2023 09:30-0500 Systolic blood nwbxcakw999 mm[Hg]Vic Mcrae MD Work Phone: 1(708)[address] [place], [place] 2844512-27-2023 09:10-0500 Body iksstkcelyy34.9 [degF]Vic Mcrae MD Work Phone: 1(016)[address] [place], [place] 2844512-27-2023 07:28-0500 Body .8 cmSgutierrez Mcrae MD Work Phone: 1(671)[address] [place], [place] 2844512-27-2023 07:28-0500 Body mass index (BMI) [Ratio]34.29 kg/e0EmfutmVic Mcrae MD Work Phone: [facility]12-27-2023 07:28-0500 Body wniqzk318.41 kgVic Mcrae MD Work Phone: [facility]07-27-2021 14:15-0400 Body tomoxv838.8 cmVanessa Yissel Cedric Work Phone: 1(150) [phone]-HgamoxrMyMichigan Medical Center Work Phone: 1(434) 418-321107-27-2021 14:15-0400Body mass index (BMI) [Ratio] 34.87 kg/z4Ghernjin Yissel [place] Work Phone: 1(885) [phone]-YclmfgkMyMichigan Medical Center Work Phone: [phone])[phone]-4214 14:15-0400Body surface area Derived from formula2.27 g9OwdzicecVanessa Steele Work Phone: 1(254) [phone]-FoheouzMyMichigan Medical Center Work Phone: [phone] 14:15-0400Body vjndriccxri77.5 [degF] Vanessa Steele Work Phone: 1(453) [phone]-JvskylwMyMichigan Medical Center Work Phone: [phone] 14:15-0400Body wawdpu147.22 kgVanessa Yissel HoustonCedric Work Phone: 1(361) [phone]-KbeoiixMyMichigan Medical Center Work Phone: [phone] 14:15-0400Diastolic blood mm[Hg] Vanessa Steele Work Phone: BW-RgjtnhwMyMichigan Medical Center Work Phone: [phone] 14:15-0400Heart rate76 /minVanessa Steele Work Phone: 1(174) [phone]-RvhzwbfMyMichigan Medical Center Work Phone: [phone] 14:15-0400Systolic blood cikdnryb614 mm[Hg] Vanessa Steele Work Phone: 1(486) [phone]-DocysmaMyMichigan Medical Center Work Phone: Encounters Encounter DateEncounter TypeCare ProviderFacilityStart: 03-31-2025 End: 44-59-9309Zoqsto Ricardo Petty DPM Work Phone: noMS [facility] PodiatryStart: 03-31-2025 End: 23-53-2304Wkppio Ricardo Petty DPM Work Phone: noMS [facility] PodiatryStart: 03-31-2025 End: 87-35-4958bhytvdxnesGUETHVEO A BROWNNot AvailableStart: 03-31-2025 End: 95-44-4476Cgjfvs outpatient new 30 minutesJonathan Petty DPM Work Phone: noms Tyler [facility]gueta PodiatryComment on above:DJD (degenerative joint disease), ankle and foot, left (Primary Dx); Other specified disorders of synovium, left ankle and footStart: 03-29-2025 End: 72-06-8574Jgfluu flowsTanya RIBEIRO Work Phone: noms [facility]icsStart: 03-29-2025 End: 13-82-8346Opymef Christina RIBEIRO Work Phone: noms [facility]opaedicsStart: 03-29-2025 End: 01-95-8616rhqgihplvoQkmz J Aichholz NP-C Work Phone: [facility] Work Phone: Start: 03-29-2025 End: 73-48-2887Zyokxgu encounter procedureLisa Marquis Rosado NP-C-[facility] [place] Work Phone: Start: 03-29-2025 End: 63-74-3962Bqqhdv outpatient visit 15 minutesMattmely RIBEIRO Work Phone: noms [facility] OrthopaedicsComment on above:Acute pain of left shoulder (Primary Dx); Left rotator cuff tear arthropathy; Arthritis of left shoulderStart: 03-29-2025 End: 22-88-4898fhwdstqiudKMOBGYY Marquis MEYERNot AvailableStart: 03-28-2025 End: 36-37-7246fjhqvuhcnaMOSCVQO [facility] Campustart: 63-50-4590Pjushckeyp and management of inpatientOMAR [facility] Systemtart: 67-69-4885Ubglfonnfe and management of inpatientMEGHAN [facility] Hospitaltart: 09-74-3876Ofaktrmalq and management of inpatientMEAN [facility] Hospitaltart: 03-21-2025 End: 75-47-1321Nvszwdkjdh and management of inpatientRAFIK MASSOUHUniThe Bellevue Hospitaltart: 94-40-4429Qie-patient / Non-visitPj Hawkins DO- [facility] Work Phone: Start: 03-13-2025 End: 46-01-6918wxwlccmwdmFapw J Aichholz BATCH PLANT OPERATOR-C Work Phone: [facility] Work Phone: Start: 03-13-2025 End: 38-96-8361Vyavmfl encounter procedureLisa Marquis Rosado BATCH PLANT OPERATOR-C-[facility] [place] Work Phone: Start: 61-88-0861Yrigzax encounter procedureLisa Alonzo BATCH PLANT OPERATOR-C Work Phone: [facility] Centertart: 93-43-5334Zjz- patient / Non-visitLisa J Alonzo BATCH PLANT OPERATOR-C-[facility] [place] Work Phone: Start: 01-09-2025 End: 61-38-9548Xyqkab flowsheetLisa Marco Az BATCH PLANT OPERATOR Work Phone: noms CWM FMStart: 01-09-2025 End: 50-20-6654Tcxtnj flowsheetLisa Leeroyhyaquelinz BATCH PLANT OPERATOR Work Phone: noms CWM FMStart: 01-09-2025 End: 93-86-8722Odsbqdpgd Result EncounterTomeka Alonzo BATCH PLANT OPERATOR Work Phone: noms External Department UnsolicitedStart: 01-09-2025 End: 07-09-5225Mzeacsv encounter procedureTomeka Umañaatif BATCH PLANT OPERATOR Work Phone: noms HealthcareComment on above:Encounter for [...] hypertension ; Left ankle swellingStart: 01-09-2025 End: 82-04-4127wpnqsdnepjGDGS AICHHOLZNot AvailableStart: 12-13-2024 End: 16-55-8517Hoduoc flowsheetTomeka Rosado BATCH PLANT OPERATOR Work Phone: noms CWM FMStart: 12-13-2024 End: 31-56-9361Hsqvno flowsedilbertoTomeka Umañakushalrhea BATCH PLANT OPERATOR Work Phone: noms CWM FMStart: 12-13-2024 End: 91-80-6400Ulrsqo outpatient visit 25 minutesLisa Rosado BATCH PLANT OPERATOR Work Phone: noms [facility] FMComment on above:Bradycardia (Primary Dx); LLQ pain; Primary malignant neuroendocrine neoplasm of duodenum (HCC); Class 1 obesity due to excess calories with serious comorbidity in adult, unspecified BMI; Type 2 diabetes mellitus with stage 3a chronic kidney disease, without long-term current use of insulin (HCC); Diverticulitis; Primary hypertensionStart: 12-13-2024 End: 36-22-6523mrtboamausBIHE AICHHOLZNot AvailableStart: 12-13-2024 End: 99-22-7758Mmvhhbihla hospital visit by Karen Thorne Phone: wmh MRIComment on above:Bilateral renal cysts; Adrenal adenoma, leftStart: 65-07-9954itsmzucbggZVCVCleveland Clinic Mentor Hospitaltart: 62-57-2314achznnubozAIPS [facility] Start: 12-08-2024 End: 46-82-2978Tqykczsecd hospital visit by Serg Ayala MD Work Phone: wmh LaboratoryComment on above:Bilateral renal cysts; Adrenal adenoma, leftStart: 11-30-2024 End: 25-04-9641Qhibjl Christina RIBEIRO Work Phone: noms [facility] ORTHOPAEDICSStart: 11-30-2024 End: 03-10-2126Nkjfzi Christina RIBEIRO Work Phone: noms [facility] ORTHOPAEDICSStart: 11-30-2024 End: 37-26-0640Mhdiax outpatient visit 15 minutesMaaric RIBEIRO Work Phone: noms FB ORTHOPAEDICSComment on above:Acute pain of left shoulder (Primary Dx); Left rotator cuff tear arthropathy; Arthritis of left shoulderStart: 11-30-2024 End: 27-70-2261tzifdloyxwUHUCXWO J MEYERNot AvailableStart: 11-28-2024 End: 17-25-4933lmnsdctatqSyin J AichholzFacility:[facility] Centertart: 11-28-2024 End: 35-07-5207Jremob flowsheetTomeka Rosado BATCH PLANT OPERATOR Work Phone: noms CWM FMStart: 11-28-2024 End: 33-58-2594Bbpqbu flowsheetTomeka Rosado BATCH PLANT OPERATOR Work Phone: [facility] FMStart: 11-28-2024 End: 69-17-5634Nykuzhovh Result EncounterTomeka Rosado BATCH PLANT OPERATOR Work Phone: [facility] External Department UnsolicitedStart: 11-28-2024 End: 99-98-9319Qsvwlevc Result EncounterTomeka Rosado BATCH PLANT OPERATOR Work Phone: [facility] External Department UnsolicitedStart: 11-28-2024 End: 40-76-8656Wjbxkk outpatient visit 25 minutesTomeka Rosado BATCH PLANT OPERATOR Work Phone: [facility] CWM FMComment on above:LLQ pain (Primary Dx); Diverticulosis of sigmoid colon; DiverticulitisStart: 11-28-2024 End: 75-16-6360qnnmeigrudLKDC AICHHOLZNot AvailableStart: 11-22-2024 End: 92-04-9439ylccukazkgHLKC [facility] Hospitaltart: 10-19-2024 End: 09-27-0750IuobzjDtkb Aichholz B[employer] PL[employer] OPERATOR Work Phone: [facility] CWM FMComment on above:Type 2 diabetes mellitus without complication, unspecified whether longterm insulin useStart: 10-11-2024 End: 12-87-2275WuxpyxRpfn Naderer MD Work Phone: [facility] CWM FMComment on above:Type 2 diabetes mellitus with stage 3a chronic kidney disease, without long-term current use of insulin (HCC) (CMS/HCC)Start: 10-10-2024 End: 63-32-2676Aguhmo flowsheetTomeka Rosado BATCH PLANT OPERATOR Work Phone: [facility] FMStart: 10-10-2024 End: 56-52-3331Jxiqkg flowsheetTomeka Umañahholalan BATCH PLANT OPERATOR Work Phone: [facility] FMStart: 10-10-2024 End: 10-44-7179Dchvva outpatient visit 25 minutesTomeka Rosado BATCH PLANT OPERATOR Work Phone: [facility] CWM FMComment on above:Type [...] mellitus (CMS/HCC); Primary hypertension (CMS/HCC)Start: 10-10-2024 End: 79-63-7184wvhgsgqyfhCMEZ AICHHOLZNot AvailableStart: 08-12-2024 End: 22-61-8925Epglup Christina RIBEIRO Work Phone: noms FB ORTHOPAEDICSStart: 08-12-2024 End: 48-04-9863Vxbart Christina RIBEIRO Work Phone: noms FB ORTHOPAEDICSStart: 08-12-2024 End: 78-55-8267Ogisaj outpatient visit 25 minutesMaaric RIBEIRO Work Phone: noms FB ORTHOPAEDICSComment on above:Acute pain of left shoulder (Primary Dx); Left rotator cuff tear arthropathyStart: 08-12-2024 End: 53-14-6445iwntqdlkwjJJEFWDD J MEYERNot AvailableStart: 07-13-2024 End: 69-56-9153Hdmcxi flowsheetMiriam Atkinstrick BATCH PLANT OPERATOR Work Phone: NOXP CWM FMStart: 07-13-2024 End: 01-47-7745Mvpqhh flowsheetBrittany Gatica BATCH PLANT OPERATOR Work Phone: NODJ CWM FMStart: 07-13-2024 End: 77-49-5426Jiuocr outpatient visit 15 minutesBrallen LauraGatica BATCH PLANT OPERATOR Work Phone: NOQC CWM FMComment on above:Primary hypertension (CMS/HCC) (Primary Dx); Type 2 diabetes mellitus with stage 3a chronic kidney disease, without long-term current use of insulin (HCC) (CMS/HCC); Stage 3a chronic kidney disease (HCC) (CMS/HCC); Mixed hyperlipidemia (CMS/HCC)Start: 07-13-2024 End: 12-14-2753dvblwavcpkJUMCCADP FITZPATRICKNot AvailableStart: 07-08-2024 End: 93-72-4680OzyovtVeplanxr Gatica BATCH PLANT OPERATOR Work Phone: noms CW FMComment on above:Gastroesophageal reflux disease without esophagitisStart: 06-30-2024 End: 16-35-4385Ceevfbkeh Result EncounterGeneric External Data ProviderNOMS External Department UnsolicitedStart: 06-30-2024 End: 46-69-7697Jyxvyjgky Result EncounterGeneric External Data ProviderNOMS External Department UnsolicitedStart: 06-30-2024 End: 96-27-5504Vghppqzrww hospital visit by physicianJeremiah Magaña MD Work Phone: uh [facility] [place] CityComment on above: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)Start: 06-30-2024 End: 38-70-8793txzejwrrhzOBUEX [facility] Hospitaltart: 06-21-2024 End: 92-48-3708Qagvnj outpatient visit 40 minutesNeftali Knowles MD Work Phone: uh [facility] HospitalComment on above: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)Start: 06-21-2024 End: 50-42-7303dcppbscftiIUK M MOHAMEDSelect Medical Specialty [facility] - Columbus Southtart: 05-31-2024 End: 52-80-4003gckaprnisrVYYS [facility] Hospitaltart: 04-14-2024 End: 71-64-2841Updsdprau Result EncounterBrittany Gatica BATCH PLANT OPERATOR Work Phone: noms External Department UnsolicitedStart: 04-14-2024 End: 45-16-9653Mwbqwiurq Result EncounterBrittany Gatica BATCH PLANT OPERATOR Work Phone: noms External Department UnsolicitedStart: 04-13-2024 End: 73-34-4091Ffkniw flowsTanya RIBEIRO Work Phone: noms FB ORTHOPAEDICSStart: 04-13-2024 End: 80-74-4792Cbvvkt Christina RIBEIRO Work Phone: noms FB ORTHOPAEDICSStart: 04-13-2024 End: 90-31-3375Psfpjz outpatient new 45 minutesMattmely RIBEIRO Work Phone: noms FB ORTHOPAEDICSComment on above:Acute pain of left shoulder (Primary Dx); Left rotator cuff tear arthropathyStart: 04-13-2024 End: 60-73-5491ecblsiffcuNQXBAEF J MEYERNot AvailableStart: 04-12-2024 End: 76-77-8845Ldkkvm flowsheetBrselenaany Gatica BATCH PLANT OPERATOR Work Phone: noms CWM FMStart: 04-12-2024 End: 82-43-5781Gybxbe flowsheetBrittany Gatica BATCH PLANT OPERATOR Work Phone: noms CWM FMStart: 04-12-2024 End: 68-24-3502Qgcwab outpatient visit 15 minutesBrittany Gatica BATCH PLANT OPERATOR Work Phone: noms CWM FMComment on above:Mixed [...] pain of right knee; ArthritisStart: 04-12-2024 End: 64-40-5716sjsawvltjpQJAADSCF FITZPATRICKNot AvailableStart: 02-23-2024 End: 86-80-8161ZgjnruPjgrgbvb Gatica BATCH PLANT OPERATOR Work Phone: noms [facility] FMComment on above:Stage 3a chronic kidney disease (HCC) (CMS/HCC); Type 2 diabetes mellitus with stage 3a chronic kidney disease, without long-term current use of insulin (HCC) (CMS/HCC)Start: 02-03-2024 End: 89-56-5838Fxymyxvxj Result EncounterSbette Ayala MD Work Phone: noms External Department UnsolicitedStart: 02-03-2024 End: 83-05-9233Xpdistywg Result EncounterSbette Ayala MD Work Phone: noms External Department UnsolicitedStart: 12-31-2023 End: 04-13-6762Jcywtsouyj hospital visit by Remimarquis [address] StreetComment on above:Primary malignant neuroendocrine neoplasm of duodenum (Multi)Start: 12-31-2023 End: 71-44-4768aksollcgrbIMOSelect Medical Specialty Hospital - Boardman, Inctart: 12-29-2023 End: 19-78-9531Oxfpxukumc hospital visit by Carol Magaña MD Work Phone: uh [facility] [place] CityComment on above: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)Start: 10-07-2023 End: 98-58-7852qlycfqeamgVRKEQMercy Health Defiance Hospitaltart: 89-27-9860MvuzwrCathie Ayala MD Work Phone: noms CWM IMComment on above:Stage 3a chronic kidney disease (HCC) (CMS/HCC) (Primary Dx); Type 2 diabetes mellitus with stage 3a chronic kidney disease, without long-term current use of insulin (HCC) (CMS/HCC)Start: 35-88-8026YlctquYbim Naderer MD Work Phone: noms CWM FMComment on above:Primary hypertension (CMS/HCC) (Primary Dx)Start: 07-28-2023 End: 33-64-8612Ejjevcr encounter procedureGrace Justice PA-C Work Phone: wYANDOT Work Phone: Start: 07-28-2023 End: 29-02-4485Bauysqtmuo hospital visit by Karen Justice PA-C Work Phone: wmh UltrasoundComment on above:Exam for clinical trial Start: 43-26-4966hcnjbegcjzNkliw LueFacility:EU BellevueStart: 06-30-2023 ambulatoryKathy LueFacility:EU [place]kyStart: 06-10-2023 End: 05-44-8441Jainvssypc hospital visit by Blanca Mcrae MD Work Phone: uh [facility] [place] CityComment on above: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 Neftali Pavonpamela Casa KnowlesFacility:[facility] CtrStart: 21-08-9398Wfjlr UpdateAbrantoñito Dey [place] Work Phone: [phone]-[facility] [facility] Work Phone: Start: 04-29-2022 End: 22-71-4639lpjhidmeiwQriib DinaryFacility:9537Start: 34-93-8256IOVEIExoakfms F [place] Work Phone: [phone]-Gvah [facility] [facility] Work Phone: Start: 33-64-8354geeyhsnahkZx. Lulu Pet Facility:[id number]: 82-81-9982RCVLSPrsdutbo Yissel Cedric Work Phone: [phone]-BybvPalo Alto County HospitalW Work Phone: Start: 63-45-8433opjaohsotdUh. [facility] Pet Facility:[id number]: 77-39-4635zrbotlwxdgBo. Neftali Pavonpamela Alexandradiego Benson Facility:[facility] CtrStart: 06-04-2021 End: 64-80-6582Tlpihpfrxg and management of inpatientDR VANESSA CEDRIC Facility:F0Furwd: 27-52-8814mjaqxdpsrtDw. Neftali Pavonpamela Casa KnowlesFacility:[facility] CtrStart: 28-49-9230Kltkab ReviewVanessa Yissel Cedric Work Phone: [phone]-Jbklgvnpalconjev-Jerry W [address] DO Work Phone: Start: 52-23-5540Obrnv UpdateAbrantoñito F Cedric Work Phone: [phone]-Czeusvonktqrqskr-Jerry SJW [address] DO Work Phone: Start: 09-27-2581SMLDNFobpqyjg F [place] Work Phone: [facility] Work Phone: Start: 06-07-5887Pddbjxacy encounterVanessa Steele Work Phone: [phone]-Foplvkkfgmupukyr-[place] [facility] [address] DO Work Phone: Start: 15-67-4275BGENHBbjzhjrl F Diller Work Phone: [phone]-Yzulsysqpkjxinhj-[place] [facility] [address] DO Work Phone: Start: 38-56-5978BXMVQEeqtfblv F Diller Work Phone: [facility] Work Phone: Start: 95-97-8303Rinchz outpatient visit 15 minutes Vanessatoñito Steele Work Phone: [phone]-GmqnmkzMymichigan [facility] Work Phone: start: 00-90-1127Doimuk outpatient new 60 minutes Vanessa Steele Work Phone: [phone]-KmtfhgzMymichigan Medical Center [facility] Work Phone: start: 27-43-1492Mjbpkgmqr for preprocedural laboratory examinationDR XAVI AUSTINKERRIEdada [facility] Centertart: 11-28-2020 End: 86-99-2828xmghwgmgskJYRAY ROSIPKOFacility:P3Gburs: 11-26-2020 End: 04-14-9965uolwzzppbrAJ XAVI THOMPSONFacility:N6Emtgu: 11-26-2020 End: 64-53-1280Yopwpxoiw for preprocedural laboratory examinationDR XAVI THOMPSONFacility:R1Brkza: 06-18-2020 End: 07-08-7762jphunisjsmFG VANESSA STEELEFacility:S6Agrpt: 10-08-2018 End: 04-35-6699Zyyihte encounter procedureDEFAULT PHYSICIANFacility:[facility] Procedures DateProcedureProcedure DetailPerforming ClinicianStart: 64-02-2419Fedxj ankle complete minimum 3 Naye Petty DPM Work Phone: Start: 13-97-9517Xnqnodxteontlb aspir&/inj major jt/bursa w/usMattmely RIBEIRO Work Phone: Start: 71-89-9637Apstmc-up visitFollow-upMELINDA TUCKERStart: 25-00-6569CN ANKLE LT MIN 3VTomeka Wongrhea BATCH PLANT OPERATOR Work Phone: Start: 39-09-7360Iizuq of urea nitrogen quantitative Grace Justice PA-C Work Phone: Start: 16-91-4551Kreqhjxfyifzyi aspir&/inj major jt/bursa w/usMatthew Marquis RIBEIRO Work Phone: Start: 61-62-4364MQ ABDOMEN 1VTomeka Leeroykushalrhea BATCH PLANT OPERATOR Work Phone: Start: 90-80-3559Qmxachf bacterial quanttative colony count urineLisa Wongrhea BATCH PLANT OPERATOR Work Phone: Start: 28-08-5258LEVMM CULTURE - FRMCRoxanne Leeroykushalrhea BATCH PLANT OPERATOR Work Phone: Start: 41-79-5200Encqqwcegsrdym aspir&/inj major jt/bursa w/usMattmely RIBEIRO Work Phone: Start: 93-70-5454Hdlzwaxexp glycosylated z9gSfjotghd Gatica BATCH PLANT OPERATOR Work Phone: Start: 93-69-9650Sar transoral biopsy single/multiple Jeremiah Magaña MD Work Phone: Start: 15-41-1399Pamqf iv surg pathology gross&microscopic examJeremiah Magaña MD Work Phone: Start: 35-21-2703Jvvupax quantitative blood xcpt reagent stripJeremiah Magaña MD Work Phone: Start: 18-74-0507DC GLUCOSE-POCTGeneric External Data ProviderStart: 38-35-6656IUB CBC WITH AUTO DIFFBrittany Gatica BATCH PLANT OPERATOR Work Phone: Start: 77-14-3427Rdcvtnintrmniv aspir&/inj major jt/bursa w/o usMattmely RIBEIRO Work Phone: Start: 15-00-2437Gdhlq shoulder complete minimum 2 viewsMattmely RIBEIRO Work Phone: Start: 81-99-0063ATS HEMOGLOBIN Q4EHyuyatporter Ayala MD Work Phone: Start: 27-88-3862Tnk transoral biopsy single/multiple Jeremiah Magaña MD Work Phone: Start: 85-45-8567Vhpdx iv surg pathology gross&microscopic examJeremiah Magaña MD Work Phone: Start: 74-50-8200YFHZF OXIMETRY, SPOTJeremiah Magaña MD Work Phone: Start: 79-87-3223Licyvav quantitative blood xcpt reagent stripJeremiah Magaña MD Work Phone: Start: 24-30-8362Wxkdu of urea nitrogen quantitative Grace Justice PA-C Work Phone: Start: 36-70-4104YAOUBGBWS PATIENTFAZEL DINARYStart: 66-46-3836UYIIPTYEJH ULTRASOUND (UPPER)FAZEL DINARYStart: 34-71-7958GKOVLIBE PATHOLOGY EXAMFAZEL DINARYStart: 40-18-9713FPRLT IN OUTPATIENT/HOSPITAL AMBULATORY SURGERYFAZEL DINARYStart: 39-06-6836Mbiecsb [Mass/volume] in Serum or PlasmaFAZEL DINARYStart: 29-14-6244Wki us exam surgical alter stom duodenum/jejunumSaleem Thor HERNANDEZ Work Phone: Start: 54-49-0993Kvmur iv surg pathology gross&microscopic examJeremiah Magaña MD Work Phone: Start: 55-88-5536Zehuutx quantitative blood xcpt reagent stripJeremiah Magaña MD Work Phone: Start: 43-60-9813Ktpyqxzw us procedureGrace Justice PA-C Work Phone: Start: 04-09-9229FUSSQ OXIMETRY, CONTINUOUSSalmara Mcrae MD Work Phone: Start: 28-83-0012Tuw transoral biopsy single/multiple Jazlyn Abdirahman Mcarthur APRN-SAFETY COORDINATOR Work Phone: start: 01-85-8429ZOXHO OXIMETRY, SPOTSgutierrez Mcrae MD Work Phone: Start: 29-91-6582Roadkka quantitative blood xcpt reagent stripSgutierrez Mcrae MD Work Phone: Start: 33-38-8608Jk thorax w/contrast materialJulie Abdirahman Mcarthur NET MOBILE DEVELOPER-SAFETY COORDINATOR Work Phone: start: 48-12-9242Gqjob 1996 panel - Serum or PlasmaStj 2Start: 81-07-8166Fbarbng genetics counseling each 30 minutesJonathan F [place] Work Phone: Start: 75-31-4583Idzytsq genetics counseling each 30 minutesJonathan F [place] Work Phone: Start: 06-88-7050Kxwbkkern of Gallbladder, Percutaneous Endoscopic ApproachDR VANESSAMONIK HOUSTONLERStart: 55-39-6771Slhnvejplwf Vic Mcrae MD Work Phone: AppendectomyJonathan F Cedric Work Phone: Excision of bunionJonathan F [place] Work Phone: Repair of shoulderJonathan F Cedric Work Phone: Plan of Treatment DateCare ActivityDetailAuthorStart: 63-38-4322Goedgthzu for malignant neoplasm of colonBellevue HospitalStart: 50-79-2627TRwO/Tdap/Td vaccine (3 - Td or Tdap)DTaP/Tdap/Td vaccine (3 - Td or Tdap)WYANDOTStart: 10-27-2028 DTaP/Tdap/Td Vaccines (4 - Td or Tdap)DTaP/Tdap/Td Vaccines (4 - Td or Tdap) [facility] HospitalStart: 73-68-0426Pgkkw panelLipid Panel [facility]: 01-11-2026 End: 98-05-5703Wdlugnt encounter ftuibohyf47/30/2026 10:30 AM EDT Office Visit [facility] [address] [place] [address] Tomeka Rosado, ANJEL [address] [place] [address] NOMS CWM FMStart: 07-28-2026Medicare Annual Wellness (AWV) Medicare Annual Wellness (AWV)NOMS HealthcareStart: 50-40-7480Vtjxt screening for proteinDiabetes: Urine Protein ScreeningNOHI HealthcareStart: 08-17-2025 Glaucoma screeningDiabetes: Retinopathy ScreeningNOHI HealthcareStart: 59-55-8981Bysyhxjs mellitus screeningDiabetes ScreeningAdams County Regional Medical Center: 03-31-2025 End: 84-28-2190Ctywapf encounter xldzhouxg20/17/2025 1:40 PM EDT Office Visit [facility] [address] [place] [address] Jonathan Petty DPM [address] [address] NOMS Guillermo Argueta PodiatryStart: 03-29-2025 End: 10-59-2277Aysrjdh encounter procedureNOMS FB ORTHOPAEDICSComment on above: Acute pain of left shoulder (Primary Dx); Left rotator cuff tear arthropathy; Arthritis of left shoulderStart: 87-33-5867Bburcxf referralCommunity Regional Medical Center Work Phone: Start: 03-13-2025 End: 78-88-9945Mttiike encounter /29/2025 9:00 AM EDT Office Visit [facility] [address] [place] [address] Tomeka Rosado, ANJEL [address] [place] [address] [facility] FMStart: 32-73-8454Drwoxvwrjv A1c measurement Diabetes: Hemoglobin V6LJRWISelect Specialty HospitalStart: 78-64-6717AVNFM-19 Vaccine ( season)COVID-19 Vaccine ( season)[facility] HospitalStart: 31-69-3620Jplxhmwjr vaccinationInfluenza Vaccine (#1)[facility] HospitalStart: 01-31-2025 End: 72-67-0618Nsxfimq encounter rogyhisti89/19/2025 9:40 AM EDT Office Visit [facility] [address] [place] [address] [place] [address] [place] [address] [facility] Centertart: 17-24-0032Ilctidinq vaccinationWilson Street Hospitaltart: 01-09-2025 End: 64-72-7034UG Ankle - left 3 ViewsXR ankle 3+ views left Imaging Routine Left ankle swelling Expected: 01/09/2025, Expires: 01/09/2026[facility] Work Phone: Comment on above:Expected: 01/09/2025, Expires: 01/09/2026Start: 01-09-2025 End: 86-10-3116Ldtpyfv encounter procedureNOINTEGRIS [facility] [place] FMComment on above:Encounter for subsequent annual wellness [...] (HCC); Left adrenal mass (HCC); Mixed hyperlipidemiaStart: 15-69-1271Ftwrlmaa mellitus screeningDiabetes ScreeningBellevue HospitalStart: 12-27-2024 EsophagogastroduodenoscopyDULancaster Municipal HospitalStart: 12-20-2024 End: 79-15-4956Dgohjhq encounter qbxgsraji53/08/2025 10:15 AM EDT Office Visit [facility] on [address] [address] Grace Justice PA-C [address] [facility] [address] [place] [address] 1 year f/u with MRI [facility] CenterComment on above:1 year f/u with MRI Start: 12-13-2024 End: 74-41-4472Ztqyypa encounter procedureNOMS [facility] FMComment on above:Bilateral renal cystLLQ pain (Primary Dx); Primary malignant neuroendocrine neoplasm of duodenum (HCC); Class 1 obesity due to excess calories with serious comorbidity in adult, unspecified BMI; Type 2 diabetes mellitus with stage 3a chronic kidney disease, without long-term current use of insulin (HCC); DiverticulitisStart: 12-09-2024 End: 32-29-6842Vfxkrdq encounter zvcvkypyt20/27/2025 9:00 AM EDT Office Visit [facility] [address] [place] [address] Jenniffer Sears PA [address] [facility] [address] [place] [address] NOMS FB ORTHOPAEDICSStart: 11-30-2024 End: 53-11-2626Gkiexss encounter procedureNOMS FB ORTHOPAEDICSComment on above: Acute pain of left shoulder (Primary Dx); Left rotator cuff tear arthropathyStart: 17-58-5232RVW test (Diabetes, CKD 3-4, OR last GFR 15-59)GFR test (Diabetes, CKD 3-4, OR last GFR 15-59)WYANDOTStart: 11-28-2024 End: 86-72-5911Ykkzskgo identified in Urine by CultureNOHI HealthcareComment on above:Expected: 11/28/2024 (Approximate), Expires: 11/28/2025Start: 11-28-2024 End: 24-25-4500WQQ W Auto Differential panel - BloodCBC and differential Lab Routine Diverticulosis of sigmoid colon LLQ pain Expected: 11/28/2024 (Appr oximate), Expires: 11/28/2025NO[facility] Work Phone: Comment on above:Expected: 11/28/2024 (Approximate), Expires: 11/28/2025Start: 11-28-2024 End: 23-90-7663Exeyqutykkgvp metabolic 2000 panel - Serum or PlasmaComprehensive metabolic panel Lab Routine Diverticulosis of sigmoid colon LLQ pain Expected: 11/28/2024 (Approximate), Expires: 11/28/2025NO HealthcareComment on above: Expected: 11/28/2024 (Approximate), Expires: 11/28/2025Start: 11-28-2024 End: 52-30-6822Qrvempcksqv sedimentation rateSedimentation rate, automated Lab Routine Diverticulosis of sigmoid colon LLQ pain Expected: 11/28/2024 (Approximate), Expires: 11/28/2025[facility] HealthcareComment on above:Expected: 11/28/2024 (Approximate), Expires: 11/28/2025Start: 11-28-2024 End: 22-80-2561Tgvvssl encounter /16/2025 2:00 PM EDT Office Visit [facility] [address] [place] [address] Tomeka Rosado NP [address] [place] [address] ArrivedCOMMUNITY [facility] FMComment on above:ArrivedStart: 11-28-2024 End: 18-49-3991Uiaddkvvnn complete panel - UrineUrinalysis with reflex microscopic (clean catch) Lab Routine Diverticulosis of sigmoid colon LLQ pain Expected: 11/28/2024 (Approximate), Expires: 11/28/2025NOHI HealthcareComment on above:Expected: 11/28/2024 (Approximate), Expires: 11/28/2025Start: 10-11-2024 Hemoglobin A1c measurementDiabetes: Hemoglobin Y7JAPDP HealthcareStart: 10-10-2024 End: 31-04-0202Rugak metabolic 1998 panel - Serum or PlasmaBasic metabolic panel Lab Routine Type 2 diabetes mellitus with stage 3a chronic kidney disease, wit hout long-term current use of insulin (HCC) ([facility]) Expected: 10/10/2024 (Approximate), Expires: 10/10/2025[facility] Work Phone: Comment on above:Expected: 10/10/2024 (Approximate), Expires: 10/10/2025Start: 10-10-2024 End: 35-14-6542Pvfqyioavl A1c/Hemoglobin.total in BloodHemoglobin A1c Lab Routine Screening for prostate cancer Expected: 10/10/2024 (Approximate), Expires: 10/10/2025[facility] HealthcareComment on above:Expected: 10/10/2024 (Approximate), Expires: 10/10/2025Start: 10-10-2024 End: 07-18-2808Abeijlsbfwvb/Creatinine panel in random UrineMicroalbumin / creatinine, urine ratio Lab Routine Type 2 diabetes mellitus with stage 3a chronic kidney disease, without long-term current use of insulin ([facility]) ([facility]) Expected: 10/10/2024 (Approximate), Expires: 10/10/2025[facility] HealthcareComment on above:Expected: 10/10/2024 (Approximate), Expires: 10/10/2025Start: 10-10-2024 End: 73-50-4049Joyod [Mass/volume] in Serum or PlasmaUric acid Lab Routine Mixed hyperlipidemia ([facility]) Expected: 10/10/2024 (Approximate), Expires: [facility] HealthcareComment on above:Expected: 10/10/2024 (Approximate), Expires: 10/10/2025Start: 10-10-2024 End: 54-71-9425Qnkhsleyiz complete panel - UrineUrinalysis with reflex microscopic (clean catch) Lab Routine Type 2 diabetes mellitus with stage 3a chronic kidney disease, without long-term current use of insulin (HCC) ([facility]) Expected: 10/10/2024 (Approximate), Expires: 10/10/2025NOMS HealthcareComment on above:Expected: 10/10/2024 (Approximate), Expires: 10/10/2025Start: 10-10-2024 End: 45-60-2364Zlljefw encounter procedureNOMS CWM FMComment on above: Gastroesophageal [...] adult, unspecified BMI; Screening for prostate cancerStart: 36-04-7611Ghozdsjn mellitus screening Diabetes ScreeningAdams County Regional Medical Center: 08-12-2024 End: 10-18-9983Djsvxqu encounter procedureNOMS FB ORTHOPAEDICSComment on above: Acute pain of left shoulder (Primary Dx)Start: 07-13-2024 End: 48-67-5411Nkudhkn encounter procedureNOMS CWM FMComment on above:Arrived Start: 35-59-7109NupcnyznhkysplthlsfrbchgrmMEDOtifzqkpph [facility] Start: 06-21-2024 End: 38-13-8225Chjjdri encounter /07/2025 9:40 AM EST Office Visit [facility] [address] [place] [address] [place] [address] [place] [phone] [facility] Centertart: 57-83-1657Apazqzge mellitus screeningDiabetes ScreeningAdams County Regional Medical Center: 36-93-3052Njtwkebztx A1c measurementDiabetes: Hemoglobin A5QFFUS HealthcareStart: 04-13-2024 End: 99-21-6823Zolpfqu encounter mkthnbsey30/30/2024 9:00 AM EDT Office Visit [facility] [address] [place] [phone] Jenniffer Sears, GEMA [address] [facility] [address] [place] [address] Acute pain of left shoulder (Primary Dx); Left rotator cuff tear arthropathy; Chronic pain of right knee; ArthritisNOMS FB ORTHOPAEDICS Comment on above:Acute pain of left shoulder (Primary Dx); Left rotator cuff tear arthropathy; Chronic pain of right knee; ArthritisStart: 04-12-2024 End: 92-48-8181KTG W Auto Differential panel - BloodCBC and differential Lab Routine Primary hypertension (CMS/HCC) Type 2 diabetes mellitus with yacsn8s chronic kidney disease, without long-term current use of insulin (HCC) (CMS/HCC) Stage 3a chronic kidney disease (HCC) (CMS/HCC) Expected: 04/12/2024 (Approximate), Expires: 04/12/2025[facility] HealthcareComment on above:Expected: 04/12/2024 (Approximate), Expires: 04/12/2025Start: 04-12-2024 End: 51-06-8560Zedqluwhxgqmz metabolic 2000 panel - Serum or PlasmaComprehensive metabolic panel Lab Routine Primary hypertension (CMS/HCC) Type 2 diabetes mellitus with stage 3a chronic kidney disease, without long-term current use of insulin (HCC) (CMS/HCC) Stage 3a chronic kidney disease (HCC) (CMS/HCC) Expected: 04/12/2024 (Approximate), Expires: 04/12/2025[facility] HealthcareComment on above:Expected: 04/12/2024 (Approximate), Expires: 04/12/2025Start: 04-12-2024 End: 77-28-9390Asmvpwdjul A1c/Hemoglobin.total in BloodHemoglobin A1c Lab Routine Type 2 diabetes mellitus with stage 3a chronic kidney disease, without long-term current use of insulin (HCC) (CMS/HCC) Expected: 04/12/2024 (Approximate), Expires: 04/12/2025[facility] HealthcareComment on above:Expected: 04/12/2024 (Approximate), Expires: 04/12/2025Start: 04-12-2024 End: [id number] 1996 panel - Serum or PlasmaLipid panel Lab Routine Mixed hyperlipidemia (CMS/HCC) Expected: 04/12/2024 (Approximate), Expires:04/12/2025 [facility] HealthcareComment on above:Expected: 04/12/2024 (Approximate), Expires: 04/12/2025Start: 04-12-2024 End: 85-61-8471Wdkqjci encounter procedureNOINTEGRIS [facility] [place] FMComment on above:Arrived Start: 27-07-6245Sazubgswbsx Syncytial Virus (RSV) or age 60 yrs+ (1 - 1-dose 75+ series)Respiratory Syncytial Virus (RSV) or age 60 yrs+ (1 - 1-dose 75+ series)[address] [facility]art: 16-94-7433Gepda screening for proteinDiabetes: Urine Protein ScreeningNOHI HealthcareStart: 02-25-2024 Medicare Annual Wellness (AWV)Medicare Annual Wellness (AWV)[facility] Start: 47-45-5446YYCIG-19 Vaccine ( season)COVID-19 Vaccine ( season)[facility]: 44-08-8281IIDVH-19 Vaccine ( season)COVID-19 Vaccine ( season)[facility] Hospitaltart: 93-38-9410Ritsfdhtq vaccinationInfluenza Vaccine (#1) [facility] HealthcareStart: 12-31-2023 End: 22-67-3172Wttzvbu encounter danypnixu17/18/2024 7:30 AM EDT Appointment [facility] [address] [place] [address] QQCheyenne Regional Medical Centertart: 12-07-2023 End: 96-71-7759Imjdjth encounter qvsbhcjyb08/24/2024 10:30 AM EDT Office Visit [facility] on Main [address] [address] Grace Justice PA-C [address] [place] [address] [place] [address] 3 month f/u with MRI and PVRWyandot Specialty [facility] on [facility] Medical CenterComment on above:3 month f/u with MRI and PVRStart: 97-99-3259Ptlsyakrkt hospital visit by physician 12/01/2023 9:30 AM EDT Hospital Encounter [facility] [address] [place] [address] GTD MRIStart: 63-11-7081Iywksehcxz A1c measurementDiabetes: Hemoglobin L0BYCOKSelect Specialty HospitalStart: 70-50-2902NHQRJ-19 Vaccine ( season)COVID-19 Vaccine ()[facility] HospitalStart: 08-11-2023 End: 69-40-5608Klxlbtw encounter gnmgskyap09/27/2024 9:15 AM EST Office Visit [facility] [address] [place] [address] Shaikh Ayala MD [address] [place] [address] [facility] IMStart: 29-94-9964Bvuczq Wellness Visit (Medicare) Annual Wellness Visit (Medicare)WYANDOTStart: 07-31-2023 End: 08-64-3595Kyjhhkl encounter elyggcrew18/16/2024 9:30 AM EST Office Visit [facility] on [address] [id number] Grace Justice, PA-C [address] [place] [address] [address] [address] [place] [address] N28.1 - Renal cyst, leftWyandot Specialty Providers on [facility]S Medical CenterComment on above:N28.1 - Renal cyst, leftStart: 63-62-0651SKXIC-19 Vaccine (4 - Pfizer series)COVID-19 Vaccine (4 - Pfizer series)[facility] HospitalStart: 06-18-2023 End: 59-20-3044Lpkwyhw encounter obspmcmqp40/04/2024 12:40 PM EST Office Visit [facility] [address] [place] [address] [place] [address] [place] [address] [facility] Cent[facility]art: 06-10-2023 End: 65-58-3971Dmcerbr encounter /27/2023 8:30 AM EST Appointment [facility] [address] [place] [address] [place] [address] [facility] [address] [address], [address] [address] [facility] Centertart: 55-54-9229Eiwyuohu mellitus screeningDiabetes ScreeningBellevue HospitalStart: 55-59-4608CZVPXW, Provider: Jeremiah Magaña, Status: Pen, Time: 7:30 AMEGDANS, Provider: Jeremiah Magaña, Status: Pen, Time: 7:30 AM YB-Ztijmzsh-Mowxyeiq 1500 Work Phone: Start: 33-24-0586DDK, Provider: Deb Zavala, Status: Pen, Time: 11:20 AMNPV, Provider: Deb Zavala, Status: Pen, Time: 11:20 AM ER-Ysosflvv-Wujmdplp 1500 Work Phone: Start: 52-90-5379Kwbfg screening for proteinDiabetes: Urine Protein ScreeningSelect Specialty HospitalStart: 12-31-9247JJNEHZ, Provider: Irwin Cespedes, Status: Pen, Time: 8:30 AMEGDANS, Provider: Irwin Cespedes, Status: Pen, Time: 8:30 WGHN-Kxiircproyayksis-Hfqytdwa SJ [address] DO Work Phone: Start: 93-91-5377NUEHDR, Provider: Irwin Cespedes, Status: Pen, Time: 10:30 AMEUSANS, Provider: Irwin Cespedes, Status: Pen, Time: 10:30 [facility] Work Phone: Start: 63-64-0769Raddtatv screeningDiabetes: Retinopathy ScreeningSelect Specialty HospitalStart: 75-80-7525Gmldtvis vaccine (2 of 3) Shingles vaccine (2 of 3)WYANDOTStart: 28-04-7979Vovslj Vaccines (2 of 3)Zoster Vaccines (2 of 3)[facility]: 06-96-7608Vvidrapgf aortic aneurysm screeningAbdominal Aortic Aneurysm (AAA) ScreeningAdams County Regional Medical Center: 36-41-6559Aoozzkhwl B Vaccines (1 of 3 - Risk 3- dose series)Hepatitis B Vaccines (1 of 3 - Risk 3-dose series)[facility]: 04-60-9372Rncgbsjoudu Syncytial Virus (RSV) or age 60 yrs+ (1 - 1-dose 60+ series)Respiratory Syncytial Virus (RSV) or age 60 yrs+ (1 - 1-dose 60+ series)WYANDOTStart: 21-65-4476GJC patients and/or patients aged 60+ years (1 - 1-dose 60+ series)RSV patients and/or patients aged 60+ years (1 - 1-dose 60+ series) [facility]: 03-37-7951Wzglhsdup for malignant neoplasm of colonWYANDOTStart: 86-22-8783Kaxxw panelLipidsWYANDOTStart: 03-35-5506Rtjqcxvon A Vaccines (1 of 2 - Risk 2-dose series)Hepatitis A Vaccines (1 of 2 - Risk 2-dose series)[facility]: 1968 Hepatitis C screeningAdams County Regional Medical Center: 1962 Depression ScreenDepression ScreenWATRIUM HEALTH WAKE FOREST BAP[facility] MEDICAL CENTERtart: 39-88-7945Uvdke panelLipids WYANDOTStart: 1949Medicare Annual Wellness VisitMedicare Annual Wellness Visit (AWV)[facility]: 47-06-8010Wmcaftekz for malignant neoplasm of colonUnSouthwest General Health Center End: 33-89-3778NK Chest and Abdomen and Pelvis W contrast [facility] Service Area Work Phone: comment on above:Once for 1 Occurrences starting 05/26/2023 until 05/26/2023 End: 33-23-3015QE Chest W contrast [facility] Work Phone: comment on above:Once for 1 Occurrences starting 12/31/2023 until 12/31/2023Microalbumin/Creatinine panel in random Urine Microalbumin / creatinine urine ratio Lab Routine Primary hypertension (CMS/HCC) Type 2 diabetes mellitus with stage 3a chronic kidney disease, without long- term current use of insulin (HCC) (CMS/HCC) Stage 3a chronic kidney disease (HCC) (CMS/HCC) Ordered: 04/12/2024[facility] Work Phone: Comment on above:Ordered: 04/12/2024 End: 15-38-6999Jqwgoxqd SedationModerate Sedation Procedures Routine Once for 1 Occurrences starting 10/07/2023 until 10/07/2023[facility] Work Phone: Comment on above:Once for 1 Occurrences starting 10/07/2023 until 10/07/2023 End: 72-95-3601Ooqkidsu SedationModerate Sedation Procedures Routine Once for 1 Occurrences starting 12/29/2023 until 12/29/2023[facility] Service Area Work Phone: Comment on above:Once for 1 Occurrences starting 12/29/2023 until 12/29/2023 End: 69-78-6625QR Abdomen WO and W contrast IVWFIRSTHEALTH MOORE REGIONAL HOSPITALT Work Phone: comment on above:1 Occurrences starting 12/01/2023 until 12/01/2023 End: 23-72-8111FE Abdomen WO and W contrast IVOhio [facility] Hospital Work Phone: comment on above:1 Occurrences starting 12/13/2024 until 12/13/2024Patient [facility] Work Phone: End: 74-38-3092Liqsf oximetry, continuousPulse oximetry, continuous Respiratory Care Routine Continuous until discontinued starting 10/07/2023[facility] Work Phone: Comment on above:Continuous until discontinued starting 10/07/2023 End: 62-85-0428Drntp oximetry, spotPulse oximetry, spot Respiratory Care Routine Once for 1 Occurrences starting 10/07/2023 until 10/07/2023[facility] Area Work Phone: Comyeww on above:Once for 1 Occurrences starting 10/07/2023 until 10/07/2023Surgical pathology [facility] Work Phone: Comuzoc on above:Release Upon Ordering for 1 Occurrences starting 06/10/2023Release Upon Ordering for 1 Occurrences starting 06/10/2023, 1 completedrgical pathology [facility] Work Phone: Compyuu on above:Release Upon Ordering for 1 Occurrences starting 10/07/2023, 1 completedrgical pathology [facility] Work Phone: Comjzxx on above:Release Upon Ordering for 1 Occurrences starting 12/29/2023, 1 completedSurgical pathology [facility] Work Phone: Comodgt on above:Release Upon Ordering for 1 Occurrences starting 06/30/2024, 1 completedURINE CULTURE - [facility] [place] [facility] Routine 11/28/2024 2:55 PM [facility] Work Phone: Immunizations Immunization DateImmunizationNotesCare RomuzgyhJmyghfup99-55-6140DFO, recombinant, protein subunit RSVpreF, adjuvant reconstitu, 120mcg/0.5mL, PF (Arexvy)Tomeka Rosado BATCH PLANT OPERATOR Work Phone: noCass Medical CenterTsazcteosg31-50-1869Jdriongg trivalent influenza vaccine, adjuvanted, preservative Safia Rosado BATCH PLANT OPERATOR Work Phone: noCass Medical CenterReipgiyznv01-61-6537dpjrfoozq virus vaccine, unspecified formulationMiriam Gatica BATCH PLANT OPERATOR Work Phone: noCass [facility] CenterJfeaxlbemj94-16-5650Aqoqbhjeq, High-dose Seasonal, Quadrivalent, Preservative FreeMarc Naderer MD Work Phone: noCass Medical CenterLezvfrcsku82-08-7935yupfrsodr virus vaccine, unspecified formulationJeremiah Magaña MD Work Phone: [facility] Work Phone: [phone]fntmx polysaccharide vaccine, 23 valentMarc Maranda HERNANDEZ Work Phone: noCass Medical CenterArgudngmdj59-97-3651Hnqhmxucl, High-dose Seasonal, Quadrivalent, Preservative Jaye Low MD Work Phone: noCass Medical CenterCxycqwrzae24-82-1886Aukqvlatb 30 MCG/0.3ML Intramuscular SuspensionJonathan F [place] Work Phone: [phone]-Dbmkutph-[place] [address] Work Phone: [phone]-ZskMLdec COVID-19 Vacc 30 MCG/0.3ML Intramuscular SuspensionJonathan F [place] Work Phone: [phone]-Kpmkpwkj-[place] [address] Work Phone: [phone] High-Dose Quadrivalent 0.7 ML Intramuscular Suspension Prefilled SyringeJonathan F Cedric Work Phone: [phone]-Tpgtksgu-[place] [address] Work Phone: [phone]-AbtWZjan COVID-19 Vacc 30 MCG/0.3ML Intramuscular SuspensionJonathan F [place] Work Phone: [phone]-EucfbwoMymichigan Medical [facility] Work Phone: [phone]-MprLGvqr COVID-19 Vacc 30 MCG/0.3ML Intramuscular SuspensionJonathan F [place] Work Phone: [phone]-YgqfxqsMymichigan Medical Center [facility] Work Phone: [phone] High-Dose Quadrivalent 0.7 ML Intramuscular Suspension Prefilled SyringeJonathan F [place] Work Phone: [phone]-OfrrowgMymichigan Medical Center [facility] Work Phone: [phone], high dose seasonal, preservative-freeJeanienathan F [place] Work Phone: [phone]-UmatmrkMymichigan Medical Center [facility] Work Phone: [phone]ovzxe conjugate vaccine, 13 valent Vanessa Steele Work Phone: [phone]-IngmcepMymichigan Medical Center [facility] Work Phone: [phone]or and diphtheria toxoids, adsorbed, preservative free, for adult use (2 Lf of tetanus toxoid and 2 Lf of diphtheria toxoid)Gerald Low MD Work Phone: [place] [address]Vzynryiwbz06-22-6185eifncnr toxoid, reduced diphtheria toxoid, and acellular pertussis vaccine, adsorbedVanessa F Cedric Work Phone: [phone]-DgaqjgzMymichigan Medical Center [facility] Work Phone: [phone]smpimxn conjugate vaccine, 13 valent Vanessa Steele Work Phone: [phone]-KwiqspeMymichigan Medical Center [facility] Work Phone: [phone]s, high dose seasonal, preservative-freeJeanienathan F [place] Work Phone: [phone]-IaxufvbMymichigan Medical Center [facility] Work Phone: [phone], high dose seasonal, preservative-freeJeanienathan F [place] Work Phone: OU-PsqznszMymichigan [facility] Work Phone: [phone] vaccine, liveJeanienathan F [place] Work Phone: [phone]-GfgllpuMymichigan Medical Center [facility] Work Phone: [phone] vaccine, liveJeanienathan F Cedric Work Phone: [phone]-EtgllxcMymichigan Medical Center [facility] Work Phone: [phone], seasonal, injectable, preservative freeVanessa Steele Work Phone: [phone]-WydarcfMymichigan Medical Center [facility] Work Phone: [phone], seasonal, injectable, preservative freeVanessa F Cedric Work Phone: [phone]-StnopivMymichigan Medical Center [facility] Work Phone: [phone] toxoid, reduced diphtheria toxoid, and acellular pertussis vaccine, adsorbedVanessa Steele Work Phone: [phone]-JztbmdjMymichigan Medical Center [facility] Work Phone: [phone]p dcucsycyc-B3S2-52, preservative-free, injectableVanessa Steele Work Phone: [phone]-YquqfnkMymichigan Medical Center [facility] Work Phone: [phone] polysaccharide vaccine, 23 valentVanessa Steele Work Phone: [phone]-LazhjgfMymichigan Medical Center [facility] Work Phone: Payers DatePayer CategoryPayerPolicy [id number]-pay2017Medicare [id number] 2017MedicaidCIGNA MEDICARE ADVANTAGE [id number] 2017Medicare (Managed Care) GENERIC MEDICARE ADVANTAGE Member Subscriber Plan / Payer (Effective 2016- Present) Name: Yusef Car Relation to Subscriber: Self Name: Yusef Car Payer ID: Not on file Group ID: Not on file Type: Not on file Address: [address] [id number]. Private Health [id number] [id number] 2.0.1.730301.3.57[id number] 2.0.1.778393.3.57[id number] 2.0.1.761584.3.57[id number] 2.16840.1.022548.3.57[id number] 2.160.1.307066.3.57[id number] 2.16840.1.119378.3.57[id number] 2.16840.1.257867.3.57[id number] 2.16840.1.350540.3.57[id number] 2.16840.1.034737.3.57[id number] 2.16.840.1.610032.3.57[id number] 2.16.840.1.917882.3.57[id number] 2.16.840.1.768539.3.57[id number] 2.16840.1.069223.3.57[id number] 2.16840.1.908637.3.579.2.383098-37-1107Yioluiz78753907 2.16840.1.790448.3.57[id number] 2.840.1.627262.3.57[id number] 2.16840.1.483740.3.57[id number] 2.16840.1.097138.3.57[id number] 2.16840.1.999504.3.579.2.[id number] 2.16840.1.027171.3.57[id number] 2.16840.1.551891.3.579.2.5[id number] 2.16840.1.613112.3.579.2.5[id number] 2.16840.1.445101.3.579.2.659688-02-3347Nsetqfe29001309 2.16.840.1.216141.3.579.2.374005-78-3526Wjumsml31431343 2.16.840.1.431983.3.57[id number] 2.16.840.1.921302.3.57[id number] 2.16.840.1.733680.3.57[id number] 2.16.840.1.689549.3.57[id number] 2.16.840.1.460872.3.579.2.665404-22-3465Ppdlfut8307761 2.840.1.522546.3.579.2.169795-97-3917Vcpkusw1047308 2.16.840.1.967660.3.579.2.44[id number] 2.16.840.1.213241.3.579.2.119113-37-6371Fxmmyik9028438 2.0.1.268851.3.579.2.811754-16-9327Gytuqzn Health Moqvxbvbe90W5470176 [id number] 2.0.1.240879.3.579.2.531 Social History DateTypeDetailFacilityStart: 06-10-2023 End: 24-50-5375Lec-smokerNon-smokerNOMS HealthcareTobacco smoking status PAIS Tobacco smoking consumption unknownBellevue Hospital Work Phone: Start: 37-02-0962Xqb Assigned At BirthNot on file [facility] Work Phone: Start: 06-10-2023 End: 87-76-3986Opkohq identityNot on fileNOMS HealthcareStart: 05-12-2023 End: 51-78-7047Vknyhzup to SARS-CoV-2 (event)Not sureBellevue HospitalStart: 06-10-2023 End: 95-11-7472Lndwpuo smoking status NHISEx-smokerBellevue Hospital Work Phone: Start: 06-15-1969 End: 46-49-9197Fgedocv of tobacco useCurrent smokerBellevue Hospital Work Phone: Start: 06-15-1969 End: 54-85-8653Znckgsd of tobacco useCigarette SmokerBellevue Hospital Work Phone: Start: 06-10-2023 End: 37-28-1496Ldwwcli use and exposureSmokeless tobacco non-userBellevue Hospital Work Phone: Start: 06-10-2023 End: 25-08-2168Qgukdes intakeCurrent drinker of alcohol (finding)[facility] Work Phone: Start: 33-49-5554Vfyrril CommentSocialBellevue Hospital Work Phone: Within the last year, have you been afraid of your partner or ex-partner?NoNOMS HealthcareStart: 05-10-2022 End: 04-57-4085Ohb often do you attend anglican or buddhism services?Patient refusedNOMS HealthcareAre you now , , [...] got money to buy more.Never trueNOMS HealthcareStart: 35-83-3952Vqqfcuc Comment caffeine: noneNOMS HealthcareStart: 50-41-2772Nzbhya identityIdentifies as male gender (finding)[facility] HealthcareStart: 47-97-0289Uubfht orientationHeterosexual (finding)[facility] HospitalStart: 38-78-7627Uvyjbvp smoking status NHISNever smoked tobaccoWYANDOT Work Phone: start: 09-07-2023 End: 56-77-8950Enccorz intakeEx-drinker (finding)[facility] Work Phone: start: 16-66-5588Hvfmshk CommentOCCASSIONA;[facility] HealthcareStart: 32-49-7168Pilrhcd CommentOCCASSIONALNOHI HealthcareStart: 79-78-8016Nww assigned at [facility] Work Phone: How often do you have 6 or more drinks on 1 occasion? NeverNOMS HealthcareHow often do you need to have someone help you when you read instructions, pamphlets, or other written material from your doctor or pharmacy [SILS]RarelyNOMS HealthcareStart: 42-18-2478QpjVbhw (finding)[facility] HospitalNEGATED: Highlighted rowStart: NINFHistory of tobacco usePassive smoker [facility] Medical Equipment Procedure CodeEquipment CodeEquipment Original TextEquipment IdentifierDates Generic Supply 08 Case [id number]: 36-69-6831Pfxvpun on above: Description: Converted from [facility] Acute. Please see archived information for full log information.USE DIRECTED ONCE [id number]: 06-22-2023 End: 05-05-4289OGW DIRECTED ONCE [id number]: each by Other route Daily dailyUse as [id number]: 10-19-2024 End: 01-27-2025 Functional Status KbutXzajpjazliNvdzgpZhjtnmoj24-88-3203Mkxfwsl Health Questionnaire 2 item (PHQ- 2) [Reported][facility] Specialty HospitalJniapnaowx41-99-7310RrszdvtwweBellevue Hospital Work Phone: [phone] - suicide severity rating scale screener - recent [C-SSRS][facility] Work Phone: [phone] Hospital Work Phone: [phone] - suicide severity rating scale screener - recent [C-SSRS][facility] Work Phone: [phone]xBellevue Hospital Work Phone: [facility] HospitalUnPrem[facility] Health [facility] Mental Status HfztQpgcvddxxuFtwfnmNoxughev15-56-5900Pguzbtjnz function findingNegative 12/29/2023 2:25 PM EDT Subha Urrutia, ALONSO [facility] Clinical Notes 11-28-2020 to 03-31-2025 Note Date & CynyMxzuKpkiyuqv33-64-5099 History of Present illness Narrative* Jonathan Petty, DPM - 03/31/2025 1:40 PM EDT Patient: [...] Strain: Low Risk (03/21/2025) Received from [facility] Overall Financial Resource Strain (CARDIA) Difficulty of Paying Living Expenses: Not hard at all Food Insecurity: No Food Insecurity (03/21/2025) Received from [facility] Hunger Vital Sign Within the past 12 months, you worried that your food would run out before you got the money to buymore.: Never true Ran Out of Food in the Last Year: Not on file Transportation Needs: No Transportation Needs (03/21/2025) Received from [facility] Transportation In the past 12 months, has lack of transportation kept you from medical appointments or from getting medications?: No Lack of Transportation (Non-Medical): Not on file Physical Activity: Insufficiently Active (07/06/2024) Exercise Vital Sign Days of Exercise per Week: 2 days Minutes of Exercise per Session: 30 min Stress: No Stress Concern Present (07/06/2024) [place] [employer] [employer] - Occupational Stress Questionnaire Feeling of Stress : Only a little Social Connections: Unknown (07/06/2024) Social Connection and Isolation Panel Frequency of Communication with Friends and Family: More than three times a week Frequency of Social Gatherings with Friends and Family: Once a week Attends Buddhist Services: Patient declined Active Member of Clubs or Organizations: No Attends Club or Organization Meetings: Never Marital Status: Intimate Partner Violence: Unknown (03/21/2025) Received from [facility] Humiliation, Afraid, Rape, and Kick questionnaire Within the last year, have you been afraid of your partner or ex-partner?: No Emotionally Abused: Not on file Physically Abused: Not on file Sexually Abused: Not on file Housing Stability: Low Risk (03/21/2025) Received from [facility] Housing Stability Vital Sign In the last 12 months, was there a time when you were not able to pay the mortgage or rent on time?: No In the past 12 months, how many times have you moved where you were living?: 0 At any time in the past 12 months, were you homeless or living in a mcc (including now)?: No ROS: General: denies fever, [...] Daily, Disp: , Rfl: documented in this encounterSelect Specialty HospitalUevwzqkpag11-74-8203 History of Present illness Narrative* GEMA Mccartney [...] neurovascular intact s/p injection. . ( Codes 71620) Procedure, treatment alternatives, risks and benefits explained, [...] signs or symptoms of infection. Wearing a radiation monitor after a recent diagnosis of heart failure andhas been on medication to hopefully correct this. Treatment plan: Intra-articular injection requested again today for symptoms. Less steroid would bebetter for the buttermaker, but shoulder could be injected every 4 [...] requiring urgent evaluation. Visit was preformed using [employer] speech recognition. documented in this encounterSelect Specialty HospitalDczppjtaoz89-59-7538 NoteCardiovascular Medicine [facility] SUBJECTIVE Chief Complaint Patient presents with Follow-up Patient is here today for a follow up appointment [facility] for chest pressure and fluid around his heart. NSVT Frequent PVCs Hyperlipidemia Hypertension Bradycardia Atrial tachycardia CKDA Dizziness Dizziness/lightheaded with standing Yusef Car is a 75 y.o. male here for follow-up after his recent admission to [facility]. His Zoe accompanied him today. PMHx: [...] left adrenal mass, atrial tachycardia presents to [facility] as a direct admission with fluid [...] therapeutic Lovenox. He was initially admitted to [facility] but it was decided to transfer [...] 03/21/2025 32.4 Ventricular Ra (more content not included)...[facility] Admission Date: 03/21/2025 [...] left adrenal mass, atrial tachycardia presents to [facility] as a direct admission with fluid [...] therapeutic Lovenox. He was initially admitted to [facility] but it was decided to transfer [...] Center 03/28/2025 1:20 PM Rosendo Sanchez CNP [facility] Your medication [...] Medications These medications were sent to [facility]/pharmacy [id number] [place] [id number] aspirin 81 mg chewable tablet spironolactone 25 [...] Blood pressure 138/54, pulse (more content not included)...[facility] Note Attestation signed by Zeus Schroeder MD [...] GDMT for HFrEF Close outpatient follow-up with [place] for HFrEF management Repeat echo in [...] normal pressures. Patient was transferred over to [facility] for possible cardiac catheterization. On presentation [...] 03/22/25 0000 120/51 36.4 ???C (97.5 ???F) Temporal 70 -- (!) 89 % -- 03/21/251999 127/75 36.2 ???C (97.2 ???F) Temporal 72 -- 95 % -- 03/21/25 1900 117/63 36.1 ???C (97 ???F) Temporal 75 17 95 % -- 03/21/25 1800 134/60 36.1 ???C (96.9 ???F) Temporal 77 17 97 % -- 03/21/25 1700 156/62 36.4 ???C (97.5 ???F) Temporal 75 17 96 % -- 03/21/25 1601 122/59 36.1 ???C (96.9 ???F) Temporal 75 17 96 % -- 03/21/25 [...] Value Ventricular Rate 74 Atrial Rate 74 ID Interval 192 QRS DURATION 160 QT Interval 498 QTC CALCULATION(BAZETT) 552 P [place] 52 R-Omaha 133 T Wave [place] -12 Impression Sinus rhythm with occasional Premature ventricular complexes Left bundle branch block Abnormal ECG When compared with ECG of 27-JUL-2023 07:48, Premature ventricular complexes are now Present Left bundle branch block is now Present No results found for: CKTOTAL , CKMB , CKMBINDEX , TROPONINI Complete Echo (more content not included)...[facility] 03-21-20[facility] NotePatient: Yusef Car Procedure Information Date/Time: 03/21/25 1800 Procedures: Coronary angiography Right heart cath Location: [facility] NURSE MIDWIFE/CLINICAL INSTRUCTOR 3 / [facility] (Cath) Providers: Jai Subramanian [...] discussed with attending and fellow. Additional Equipment RequestsUnSelect Medical Specialty [facility] [place]10-07-2025 Note Case was discussed with the PEYTON on 03/21/2025. I agree with the history, physical, assessment, and plan of care. I discussed the findings and therapeutic plan. I agree with the documentation, except for any updates below. Pelon Keller [facility] Note-Troponin 85->112->43 -Concern for ACS -Will initiate IV heparin infusion -Patient was given Plavix as well as therapeutic Lovenox at outside hospital -N.p.o. for possible cardiac cath -Most recent cardiac cath completed on 07/27/2023 showing mild CAD -Cardiology consultUnSelect Medical Specialty Hospital - [facility]10-07-2025 Note- Continue losartanUnSelect Medical Specialty Hospital [facility] [place]10-07-2025 Note-Continue outpatient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 Diagnosis Primary malignant neuroendocrine neoplasm of duodenum (CMS/HCC) documented in this encounter [facility] Work Phone: Evaluation note* Diagnosis Primary malignant neuroendocrine neoplasm of duodenum (CMS/HCC) documented in this encounter [facility] Work Phone: Evaluation note* Diagnosis Primary malignant neuroendocrine neoplasm of duodenum (CMS/HCC)- Primary documented in this encounter [facility] Work Phone: Evaluation note* Diagnosis Primary hypertension (CMS/HCC)- Primary Unspecified essential hypertension documented in this encounter [facility]* Diagnosis Exam for clinical trial Examination of participant in clinical trial documented in this encounter [facility] Phone: evaluation note* Diagnosis Stage 3a chronic kidney disease (HCC) (CMS/HCC)- Primary Type 2 diabetes mellitus with stage 3a chronic kidney disease, without long-term current use of insulin (HCC) (CMS/HCC) [facility]* Diagnosis Primary malignant neuroendocrine neoplasm of duodenum (Multi)- Primary documented in this encounter [facility] Work Phone: Evaluation note* Diagnosis 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 Adrenal adenoma, left documented in this encounter [facility] Phone: evaluation note* Diagnosis 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 Adrenal adenoma, left documented in this encounter [facility] Phone: evaluation note* Diagnosis Primary hypertension (CMS/HCC)- [...] arthropathy, site unspecified documented in this encounter [facility] HealthcareEvaluation note* Diagnosis Primary hypertension (CMS/HCC)- [...] reflux Stage 3a chronic kidney disease (HCC) ([facility]/HCC) Obesity (BMI 30-39.9) Diabetes mellitus type 2 in obese (CMS/HCC) Left rotator cuff tear arthropathy Chronic pain of right knee Arthritis Unspecified arthropathy, site unspecified Acute pain of left shoulder- Primary Left rotator cuff tear arthropathy documented in this encounter [facility] HealthcareEvaluation note* Diagnosis Primary malignant neuroendocrine neoplasm of duodenum (Multi)- Primary documented in this encounter [facility] Work Phone: Evaluation note* Diagnosis Primary malignant neuroendocrine neoplasm of duodenum (Multi) documented in this encounter [facility] Work Phone: Evaluation note* Diagnosis Stage 3a chronic kidney disease (HCC) (CMS/HCC) Type 2 diabetes mellitus with stage 3a chronic kidney disease, without long-term current use of insulin (HCC) ([facility]) documented in this encounter [facility] Medical[facility] note* Diagnosis Primary malignant neuroendocrine neoplasm of duodenum (Multi)- Primary documented in this encounter [facility] Work Phone: Evaluation note* Diagnosis Primary malignant neuroendocrine neoplasm of duodenum (Multi)- Primary documented in this encounter [facility] Work Phone: Evaluation note* Diagnosis Primary hypertension (CMS/HCC)- Primary Unspecified essential hypertension Primary malignant neuroendocrine neoplasm of duodenum (CMS/HCC) Gastroesophageal reflux disease without esophagitis Esophageal reflux Abnormal nuclear stress test Stage 3a chronic kidney disease (HCC) ([facility]CC) Nodule of lower lobe of left lung Type 2 diabetes mellitus with stage 3a chronic kidney disease, without long-term current use of insulin (HCC) ([facility]/HCC) Renal cyst, left Unspecified congenital cystic kidney disease NSVT (nonsustained ventricular tachycardia) ([facility]) Encounter to establish care with new doctor Left adrenal mass ([facility]/HCC)- Primary Unspecified disorder of adrenal glands Type [...] esophagitis Esophageal reflux documented in this encounter [facility] HealthcareEvaluation note* Diagnosis Primary hypertension (CMS/HCC)- [...] cystic kidney disease NSVT (nonsustained ventricular tachycardia) ([facility]) Encounter to establish care with new [...] (CMS/HCC) Mixed hyperlipidemia documented in this encounter [facility] HealthcareEvaluation [facility]* Diagnosis Primary hypertension (CMS/HCC)- [...] cystic kidney disease NSVT (nonsustained ventricular tachycardia) (CMS/[facility]) Encounter to establish care with new doctor Left adrenal mass ([facility]/HCC)- Primary Unspecified disorder of adrenal glands Type [...] cuff tear arthropathy documented in this encounter [facility]Evaluation [facility]* Diagnosis Primary hypertension (CMS/HCC)- [...] Unspecified essential hypertension documented in this encounter [facility]Evaluation note* Diagnosis Primary hypertension (CMS/HCC)- [...] (HCC) (CMS/HCC) documented in this encounter [facility]* Diagnosis Primary hypertension (CMS/HCC)- Primary [...] without long-term current use of insulin (HCC) ([facility]/HCC) Gastroesophageal reflux disease without esophagitis Esophageal reflux [...] reflux Primary malignant neuroendocrine neoplasm of duodenum ([facility]/HCC) Benign prostatic hyperplasia with lower urinary tract [...] type 2 diabetes mellitus (CMS/HCC) Primary hypertension ([facility]/HCC) Unspecified essential hypertension Type 2 diabetes mellitus without complication, unspecified whether longterm insulin use documented in this encounter [facility] Healthcare[facility]* Diagnosis Primary hypertension- Primary Unspecified essential hypertension Primary malignant neuroendocrine neoplasm of duodenum (HCC) Gastroesophageal reflux disease without esophagitis Esophageal reflux Abnormal nuclear stress test Stage 3a chronic kidney disease ([facility]) Nodule of lower lobe of left lung Type 2 diabetes mellitus with stage 3a chronic kidney disease, without long-term current use of insulin ([facility]) Renal cyst, left Unspecified congenital cystic kidney disease NSVT (nonsustained ventricular tachycardia) ([facility]) Encounter to establish care with new [...] Esophageal reflux Stage 3a chronic kidney disease ([facility]) Obesity (BMI 30-39.9) Diabetes mellitus type 2 in obese ([facility]) Left rotator cuff tear arthropathy Chronic [...] mention of hemorrhage) documented in this encounter [facility]* Diagnosis Primary hypertension- Primary [...] cystic kidney disease NSVT (nonsustained ventricular tachycardia) ([facility]) Encounter to establish care with new [...] of left shoulder documented in this encounter [facility] HealthcareEvaluation note* Diagnosis 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 Adrenal adenoma, left documented in this encounter [facility] Work Phone: evaluation note* Diagnosis Primary [...] cystic kidney disease NSVT (nonsustained ventricular tachycardia) ([facility]) Encounter to establish care with new [...] Unspecified essential hypertension documented in this encounter [facility] HealthcareEvaluation [facility]* Diagnosis 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 Adrenal adenoma, left documented in this encounter [facility] Work Phone: evaluation note* Diagnosis Primary [...] Esophageal reflux Stage 3a chronic kidney disease ([facility]) Obesity (BMI 30-39.9) Diabetes mellitus type 2 in obese ([facility]) Left rotator cuff tear arthropathy Chronic [...] details unspecified Obesity (BMI 30-39.9) Morbid obesity ([facility]) Morbid obesity Gout, unspecified cause, unspecified chronicity, [...] and foot joint documented in this encounter [facility] HealthcareEvaluation [facility]* Diagnosis Onset Date Resolution Status Admit Date CKD stage 3a, GFR 45-59 ml/min acutept2024 8:52amDiabetic polyneuropathy associated with type 2 diabetes mellitusacutept2024 8:52amGastroesophageal reflux disease acuteMarch 13, 2025 8:52amHypertensionacutept2024 8:52amLeft ankle swellingacuteMarch 13, 2025 8:52amMixed hyperlipidemiaacute March 13, 2025 8:52amObesity (BMI 30-39.9)acutept2024 8:52am Type 2 diabetes mellitus, without long-term current use of insulinacutept2024 8:52am [facility] Work Phone: Evaluation note* Diagnosis Primary malignant neuroendocrine neoplasm of duodenum (Multi)- Primary documented in this encounter [facility] Work Phone: Evaluation note* Diagnosis Primary malignant neuroendocrine neoplasm of duodenum (Multi)- Primary documented in this encounter [facility] Work Phone: Evaluation note* Diagnosis Primary hypertension- Primary Unspecified essential hypertension Primary malignant neuroendocrine neoplasm of duodenum (HCC) Gastroesophageal reflux disease without esophagitis Esophageal reflux Abnormal nuclear stress test Stage 3a chronic kidney disease ([facility]) Nodule of lower lobe of left lung Type 2 diabetes mellitus with stage 3a chronic kidney disease, without long-term current use of insulin (HCC) Renal cyst, left Unspecified congenital cystic kidney disease NSVT (nonsustained ventricular tachycardia) ([facility]) Encounter to establish care with new [...] Esophageal reflux Stage 3a chronic kidney disease ([facility]) Obesity (BMI 30-39.9) Diabetes mellitus type 2 in obese ([facility]) Left rotator cuff tear arthropathy Chronic pain of right knee Arthritis Unspecified arthropathy, site unspecified Primary hypertension- Primary Unspecified essential hypertension Type 2 diabetes mellitus with stage 3a chronic kidney disease, without long-term current use of insulin (HCC) Stage 3a chronic kidney disease ([facility]) Mixed hyperlipidemia Type 2 diabetes mellitus with [...] of left shoulder documented in this encounter [facility] HealthcareEvaluation note* Diagnosis Primary hypertension- Primary [...] Esophageal reflux Stage 3a chronic kidney disease ([facility]) Obesity (BMI 30-39.9) Diabetes mellitus type 2 in obese ([facility]) Left rotator cuff tear arthropathy Chronic pain of right knee Arthritis Unspecified arthropathy, site unspecified Primary hypertension- Primary Unspecified essential hypertension Type 2 diabetes mellitus with stage 3a chronic kidney disease, without long-term current use of insulin (HCC) Stage 3a chronic kidney disease ([facility]) Mixed hyperlipidemia Type 2 diabetes mellitus with stage 3a chronic kidney disease, without long-term current use of insulin (HCC)- Primary Gastroesophageal reflux disease without esophagitis Esophageal reflux Primary malignant neuroendocrine neoplasm of duodenum (HCC) Benign prostatic hyperplasia with lower urinary tract symptoms, symptom details unspecified Obesity (BMI 30-39.9) Morbid obesity ([facility]) Morbid obesity Gout, unspecified cause, unspecified chronicity, [...] wasreferred to the [facility] at [facility] by his provider, Ania Foster [...] 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 CAR is of Azeri and Italian descent. There is no known Ashkenazi Methodist ancestry. Consanguinity was denied. No genetic testing has been done in the family before. [employer] Work Phone: History of Present illness NarrativePlease see previous genetics note.[id number] Work Phone: History of Present illness Narrative* Neftali Knowles MD - 06/21/2024 9:40 AM EST Images from the original note were not included. Patient ID: Yusef Car is a 74 y.o. male. Referring Physician: No referring provider defined for this encounter. Primary Care Provider: Shaikh Jamie MD Chief Complaint: Duodenal neuroendocrine tumor Interval History: 73 years old gentleman from [place], [place] who has been referred to me from [facility]. Thepatient complained of acid reflux for [...] 0841 No results found for: TSH , I4NBTJB , D6QTEOU , THYROIDPAB Radiology Result: I have reviewed [...] Juanjose Walters 05/27/2023 11:47 AM Dictation workstation: [id number] === 01/11/21 === - Impression - 1. [...] Juanjose Walters 05/27/2023 11:47 AM Dictation workstation: [id number] Pathology Results: I have reviewed the full pathology report recorded in the EMR. The pertinent portions indicating diagnosis are listed here in the note. for details please refer to the full report recorded in the EMR. Assessment and Plan: Localized duodenal neuroendocrine tumor (G1) 73 years old gentleman from [place], [place] who has been referred to me from [facility]. Thepatient complained of acid reflux for [...] patient has been recommended to go to [place] for surgical consultation. I discussed with the [...] number listed below. Thank you for choosing [facility] at [facility]. We appreciate your visit. Neftali Knowles M.D. Master Mechanic and Director of the Neuroendocrine Tumor Program Gastrointestinal Medical Oncology Department of Hematology and Oncology [facility], [place] [id number] Phone (Office): [phone] Email: [email or web address] Learn more about [facility] Comprehensive Neuroendocrine Tumor Program: Click Here Learn more about [place] [employer]end[employer]: [email or web address] [facility] Work Phone: Hospital Discharge instructionsAmbulatory Orders* Referral to Podiatry Time Frame: 03/13/25, [facility] Work Phone: Reason for visit Narrative* Endoscopy (Routine) - AuthorizedSpecialtyDiagnoses / ProceduresReferred By ContactReferred To ContactGastroenterology Diagnoses Primary malignant neuroendocrine neoplasm of duodenum (Multi) Procedures Esophagogastroduodenoscopy (EGD) ID ESOPHAGOGASTRODUODENOSCOPY TRANSORAL DIAGNOSTIC ID EGD TRANSORAL BIOPSY SINGLE/MULTIPLE Jeremiah Magaña MD [address] [facility] [address] [place] [address] Phone: tel: fax: Referral IDStatusReasonStart DateExpiration DateVisits RequestedVisits [id number]/[id number]/ [facility] Work Phone: Redurh for visit Narrative* Imaging (Routine) - Closed SpecialtyDiagnoses / ProceduresReferred By ContactReferred To ContactRadiology Diagnoses Bilateral renal cysts Adrenal adenoma, left Procedures MRI ABDOMEN W WO CONTRAST Grace Justice PA-C [address] [facility] [address] [place] [address] Phone: tel: fax: Referral IDStatusReasonStart DateExpiration DateVisits RequestedVisits [id number]/ [facility] Work Phone: reason for visit Narrative* Endoscopy (Routine) - AuthorizedSpecialtyDiagnoses / ProceduresReferred By ContactReferred To ContactGastroenterology Diagnoses Primary malignant neuroendocrine neoplasm of duodenum (Multi) Procedures EGD ID ESOPHAGOGASTRODUODENOSCOPY TRANSORAL DIAGNOSTIC ID EGD TRANSORAL BIOPSY SINGLE/MULTIPLE Jeremiah Magaña MD [address] [place] [address] Phone: tel: fax: Referral IDStatusReasonStart DateExpiration DateVisits RequestedVisits [id number]/18/20241/ [facility] Work Phone: Reason for visit Narrative* Endoscopy (Routine) - AuthorizedSpecialtyDiagnoses / ProceduresReferred By ContactReferred To ContactGastroenterology Diagnoses Primary malignant neuroendocrine neoplasm of duodenum (Multi) Procedures Endoscopic Ultrasound (Upper) [place] [address] [place] [address] Phone: tel: fax: Referral IDStatusReasonStart DateExpiration DateVisits RequestedVisits [id number]/15/20241/ [facility] Work Phone: Summary Purpose Family History [...] RelationshipCommunicationTina PrestonSpouse Health Care Agent* * * [email or web address] NameRelationshipHealthcare Agent RelationshipCommunicationTina PrestonSpouse Health Care Agent* * * [email or web address] NameRelationshipHealthcare Agent RelationshipCommunicationTina PrestonSpouse Health Care Agent* * * [email or web address] NameRelationshipHealthcare Agent RelationshipCommunicationTina PrestonSpouse Health Care Agent* * * [email or web address] NameRelationshipHealthcare Agent RelationshipCommunicationTina PrestonSpouse Health Care Agent* * * [email or web address] NameRelationshipHealthcare Agent RelationshipCommunicationTina PrestonSpouse Health Care Agent* * * [email or web address] NameRelationshipHealthcare Agent RelationshipCommunicationTina PrestonSpouse Health Care Agent* * * [email or web address] NameRelationshipHealthcare Agent RelationshipCommunicationTina PrestonSpouse Health Care Agent* * * [email or web address] NameRelationshipHealthcare Agent RelationshipCommunicationTina PrestonSpouse Health Care Agent* * * [email or web address] NameRelationshipHealthcare Agent RelationshipCommunicationTina PrestonSpouse Health Care Agent* * * [email or web address] NameRelationshipHealthcare Agent RelationshipCommunicationTina PrestonSpouse Health Care Agent* * * [email or web address] NameRelationshipHealthcare Agent RelationshipCommunicationTina PrestonSpouse Health Care Agent* * * [email or web address] NameRelationshipHealthcare Agent RelationshipCommunicationTina PrestonSpouse Health Care Agent* * * [email or web address] NameRelationshipHealthcare Agent RelationshipCommunicationTina PrestonSpouse Health Care Agent* * * [email or web address] NameRelationshipHealthcare Agent RelationshipCommunicationTina PrestonSpouse Health Care Agent* * * [email or web address] NameRelationshipHealthcare Agent RelationshipCommunicationTina PrestonSpouse Health Care Agent* * * [email or web address] NameRelationshipHealthcare Agent RelationshipCommunicationTina PrestonSpouse Health Care Agent* * * [email or web address] NameRelationshipHealthcare Agent RelationshipCommunicationTina PrestonSpouse Health Care Agent* * * [email or web address] NameRelationshipHealthcare Agent RelationshipCommunicationTina PrestonSpouse Health Care Agent* * * [email or web address] NameRelationshipHealthcare Agent RelationshipCommunicationTina PrestonSpouse Health Care Agent* * * [email or web address] NameRelationshipHealthcare Agent RelationshipCommunicationTina PrestonSpouse Health Care Agent* * * [email or web address] NameRelationshipHealthcare Agent RelationshipCommunicationTina PrestonSpouse Health Care Agent* * * [email or web address] NameRelationshipHealthcare Agent RelationshipCommunicationTina PrestonSpouse Health Care Agent* * * [email or web address] NameRelationshipHealthcare Agent RelationshipCommunicationTina PrestonSpouse Health Care Agent* * * [email or web address] NameRelationshipHealthcare Agent RelationshipCommunicationTina PrestonSpouse Health Care Agent* * * [email or web address] Advance Directive Response Recorded Date/ Time Advance Directives No November 29 1:34pm NameRelationshipHealthcare Agent RelationshipCommunicationTina PrestonSpouse Health Care Agent* * * [email or web address] NameRelationshipHealthcare Agent RelationshipCommunicationTina PrestonSpouse Health Care Agent* * * [email or web address] NameRelationshipHealthcare Agent RelationshipCommunicationTina PrestonSpouse Health Care Agent* * * [email or web address] NameRelationshipHealthcare Agent RelationshipCommunicationTina PrestonSpouse Health Care Agent* * * [email or web address] Chief Complaint 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 * Accompanied by . Patient seen for discussion of genetic test results. Reason for Referral SpecialtyDiagnoses / ProceduresReferred By ContactReferred To ContactRadiology Diagnoses Primary malignant neuroendocrine neoplasm of duodenum (CMS/HCC) Procedures CT chest abdomen pelvis w IV contrast Jazlyn Mcarthur, NET MOBILE DEVELOPER-SAFETY COORDINATOR [address] [facility] [place] [address] Referral IDStatusReasonBridgeport DateExpiration DateVisits RequestedVisits [id number] Review Perform Procedure [id number] / ProceduresReferred By ContactReferred To ContactGastroenterology Diagnoses Primary malignant neuroendocrine neoplasm of duodenum (CMS/HCC) Procedures EGD ID ESOPHAGOGASTRODUODENOSCOPY TRANSORAL DIAGNOSTIC ID EGD TRANSORAL BIOPSY SINGLE/MULTIPLE Jazlyn Mcarthur, NET MOBILE DEVELOPER-SAFETY COORDINATOR [address] [employer] [facility] [place] [address] Referral IDStatusReasonStcoal city DateExpiration DateVisits RequestedVisits [id number] [id number] / ProceduresReferred By ContactReferred To ContactRadiology Diagnoses Exam for clinical trial Procedures US COMPARISON OF OUTSIDE FILMS Grace Justice PA-C [address] [facility] [address] [address] Referral IDStatusReasonStart DateExpiration DateVisits RequestedVisits [id number] Review/[id number] / ProceduresReferred By ContactReferred To ContactGastroenterology Diagnoses Primary malignant neuroendocrine neoplasm of duodenum (Multi) Procedures Endoscopic Ultrasound (Upper) [place] [address] [facility] [address] [place] [address] Referral IDStatusReasonStart DateExpiration DateVisits RequestedVisits [id number] Review/[id number] / ProceduresReferred By ContactReferred To ContactRadiology Diagnoses Bilateral renal cysts Adrenal adenoma, left Procedures MRI ABDOMEN W WO CONTRAST Grace Justice, SHERMAN [address] [facility] [address] [place] [address] Referral IDStatusReasonStart DateExpiration DateVisits RequestedVisits [id number]/17/20246/[id number] / Procedures Referred By ContactReferred To ContactGastroenterology Diagnoses Primary malignant neuroendocrine neoplasm of duodenum (Multi) Procedures EGD ID ESOPHAGOGASTRODUODENOSCOPY TRANSORAL DIAGNOSTIC ID EGD TRANSORAL BIOPSY SINGLE/MULTIPLE Jeremiah Magaña MD [address] [facility] [address] [place] [address] Referral IDStatusReasonStart DateExpiration DateVisits RequestedVisits [id number] Review/[id number] / ProceduresReferred By ContactReferred To ContactRadiology Diagnoses Primary malignant neuroendocrine neoplasm of duodenum (Multi) Procedures [place] chest [place] [address] [place] [address] Referral IDStatusReasonStart DateExpiration DateVisits RequestedVisits [id number] Perform Procedure Chief Complaint and Reason for Visit Chief Complaint Admit Date Amb Documentation February 14, 2025 1:26pm 2M March 13, 2025 8:52am Reason for Visit Admit Date CKD stage 3a, GFR 45-59 ml/min March 13, 2025 8:52am Diabetic polyneuropathy asso ciated with type 2 diabetes mellitus March 13, 2025 8:52am Gastroesophageal reflux disease [facility] 2024 8:52am Hypertension March 13, 2025 8:52am Left ankle swelling March 13, 2025 8:52am Mixed hyperlipidemia March 13 8:52am Obesity (BMI 30-39.9) March 13 8:52am Type 2 diabetes mellitus, wi thout long-term current use of insulin March 13, 2025 8:52am Chief Complaint Admit Date Amb Documentation February 14, 2025 1:26pm 2M March 13, 2025 8:52am [facility] March 29, 2025 1 0:51am Reason for Visit Admit Date Allergic rhinitis March 13, 2025 8:52am Bradycardia March 13, 2025 8:52am CKD stage 3a, GFR 45-59 ml/min March 13, 2025 8:52am Diabetic polyneuropathy asso ciated with type 2 diabetes mellitus March 13, 2025 8:52am Gastroesophageal reflux disease [facility] 2024 8:52am Hypertension March 13, 2025 8:52am [...] and content) DATE CREATED AUTHOR 10/12/2018 [facility] DATE CREATED AUTHOR AUTHOR'S ORGANIZ ATION 06/13/2021 [facility] DATE CREATED AUTHOR AUTHOR'S ORGANIZ ATION 12/06/2021 [facility] DATE CREATED AUTHOR AUTHOR'S ORGANIZ ATION 05/14/2022 [facility] DATE CREATED AUTHOR AUTHOR'S ORGANIZ ATION 09/17/2022 [facility] DATE CREATED AUTHOR AUTHOR'S ORGANIZ ATION 07/31/2023 [facility] DATE CREATED AUTHOR AUTHOR'S ORGANIZ ATION 08/02/2023 [facility] DATE CREATED AUTHOR AUTHOR'S ORGANIZ ATION 06/27/2024 [facility] DATE CREATED AUTHOR AUTHOR'S ORGANIZ ATION 07/07/2024 [facility] DATE CREATED AUTHOR AUTHOR'S ORGANIZ ATION 12/02/2024 [facility] DATE CREATED AUTHOR AUTHOR'S ORGANIZ ATION 12/19/2024 [facility] DATE CREATED AUTHOR AUTHOR'S ORGANIZ ATION 04/02/2025 [facility] DATE CREATED AUTHOR AUTHOR'S ORGANIZ ATION 04/07/2025 [facility] Reason for Visit (unrecogniz ed section and content) SpecialtyDiagnoses / ProceduresReferred By ContactReferred To ContactRadiology Diagnoses Primary malignant neuroendocrine neoplasm of duodenum (CMS/HCC) Procedures CT chest abdomen pelvis w IV contrast Jazlyn Mcarthur, NET MOBILE DEVELOPER-SAFETY COORDINATOR [address] Hematology [place] [address] Referral IDStatusReasonStart DateExpiration DateVisits RequestedVisits [id number] Review Perform Procedure /[id number] / ProceduresReferred By ContactReferred To ContactGastroenterology Diagnoses Primary malignant neuroendocrine neoplasm of duodenum (CMS/HCC) Procedures EGD ID ESOPHAGOGASTRODUODENOSCOPY TRANSORAL DIAGNOSTIC ID EGD TRANSORAL BIOPSY SINGLE/MULTIPLE Jazlyn Mcarthur, NET MOBILE DEVELOPER-SAFETY COORDINATOR [address] [facility] [place] [address] Referral IDStatusReasonStart DateExpiration DateVisits RequestedVisits [id number] Kdhhzm83/[id number] Med Request SpecialtyDiagnoses / ProceduresReferred By ContactReferred To ContactRadiology Diagnoses Exam for clinical trial Procedures US COMPARISON OF OUTSIDE FILMS Grace Justice PA-C [address] [place] [address] Referral IDStatusReasonStart DateExpiration DateVisits RequestedVisits [id number] Review/[id number] / ProceduresReferred By ContactReferred To ContactGastroenterology Diagnoses Primary malignant neuroendocrine neoplasm of duodenum (Multi) Procedures Endoscopic Ultrasound (Upper) [place] [address] [facility] [address] [place] [address] Referral IDStatusReasonStart DateExpiration DateVisits RequestedVisits [id number] Review/[id number] / ProceduresReferred By ContactReferred To ContactRadiology Diagnoses Bilateral renal cysts Adrenal adenoma, left Procedures MRI ABDOMEN W WO CONTRAST Grace Justice PA-C [address] [place] [address] Referral IDStatusReasonStart DateExpiration DateVisits RequestedVisits [id number]/17/20246/[id number]alewiwcrnj ReasonCommentsPainSpecialtyDiagnoses / ProceduresReferred By ContactReferred To ContactOrthopaedic Surgery Diagnoses Left rotator cuff tear arthropathy Chronic pain of right knee Arthritis Miriam Gatica, BATCH PLANT OPERATOR [address] [place] [address] Phone: tel: fax: Jenniffer Sears PA [address] [facility] [address] [place] [address] Phone: tel: fax: Referral IDStatusReasonStart DateExpiration DateVisits RequestedVisits [id number] Specialty Services Required /[id number] / ProceduresReferred By ContactReferred To ContactGastroenterology Diagnoses Primary malignant neuroendocrine neoplasm of duodenum (Multi) Procedures EGD ID ESOPHAGOGASTRODUODENOSCOPY TRANSORAL DIAGNOSTIC ID EGD TRANSORAL BIOPSY SINGLE/MULTIPLE Jeremiah Magaña MD [address] [facility] [address] [place] [address] Referral IDStatusReasonStart DateExpiration DateVisits RequestedVisits [id number] Review/[id number] / ProceduresReferred By ContactReferred To ContactRadiology Diagnoses Primary malignant neuroendocrine neoplasm of duodenum (Multi) Procedures [place] chest [place] [address] [place] [address] Referral IDStatusReasonStart DateExpiration DateVisits RequestedVisits [id number] Perform Procedure /[id number] DateCommentsMed Pcqrlo564ReasonComments Follow-upReasonCommentsMed RefillReasonCommentsDiabetesReasonCommentsDiabetes HyperlipidemiaHypertensionReasonOnset DateCommentsMed Qtbpwf6310/11/2024Reason Onset DateCommentsMed Iyxwij3910/19/2024ReasonCommentsAbdominal PainFeverReason CommentsMedicare Annual Wellness Visit InitialReasonCommentsAnkle PainSpecialty Diagnoses / ProceduresReferred By ContactReferred To ContactPodiatry Diagnoses Effusion, left ankle Procedures ID UNLISTED EVALUATION AND MANAGEMENT SERVICE Tomeka Rosado, ANJEL [address] [place] [address] Phone: tel: fax: Jonathan Petty, DPInna [address] [address] Phone: tel: fax: Referral IDStatusReasonStart DateExpiration DateVisits RequestedVisits [id number]/29/20253/ Care Teams (unrecognized sec tion and content) Team MemberRelationshipSpecialtyStart DateEnd Date Renea Barajas DO [address] [place] [address] PCP - [facility]05/26/23Team MemberRelationshipSpecialtyStart Date End Date Renea Barajas DO [address] [place] [address] PCP - [facility] Eirmvotg05/12/23Team MemberRelationshipSpecialtyStart Date End Date Renea Barajas DO [address] [place] [address] PCP - [facility]05/26/23Te MemberRelationshipSpecialtyStart Date End Date Shaikh Ayala MD [address] [place] [address] PCP - GeneralInternal Medicine07/15/23Team MemberRelationshipSpecialtyStart Date End Date Shaikh Ayala MD [address] [place] [address] PCP - GeneralInternal Medicine07/15/23Team MemberRelationshipSpecialtyStart Date End Date Renea Barajas DO [address] [place] [address] PCP - [facility]State [facility] Lghugkoq27/12/23 [place] [address] [place] [address] Consulting PhysicianHematology and Oncology06/15/23Team MemberRelationship SpecialtyStart DateEnd Date Shaikh Ayala MD [address] [place] [address] PCP - General07/31/23Te MemberRelationshipSpecialtyStart DateEnd Date Shaikh Ayala MD [address] [place] [address] PCP - General07/31/23Team MemberRelationshipSpecialtyStart DateEnd Date Shaikh Ayala MD [address] [place] [address] PCP - GeneralInternal Medicine07/15/23 Renea Barajas DO [address] [place] [address] PCP - [facility]08/14/23Team MemberRelationshipSpecialtyStart DateEnd Date Renea Barajas DO [address] [facility] [place] [address] PCP - [facility]08/14/23 Miriam Gatica NP [address] [place] [address] Nurse PractitionerState Reform [employer] For Boys Wkxhppao00/29/24Team MemberRelationshipSpecialtyStart DateEnd Date Renea Barajas DO [address] [facility] [place] [address] PCP - [facility]08/14/23 Gerald Low MD [address] [place] [address] [facility]/13/24 Miriam Gatica NP [address] [place] [address] Nurse [facility]04/12/24Team MemberRelationshipSpecialtyStart DateEnd Date Renea Barajas DO [address] [facility] [place] [address] PCP [facility]08/14/23 Gerald Low MD [address] [place] [address] P[facility] - [facility]04/13/24 Miriam Gatica NP [address] [place] [address] Nurse PractitionerFamily Bbfzctvp28/29/24Team MemberRelationshipSpecialtyStart DateEnd Date StepanRenea LeenaDO [address] [place] [address] PCP - [facility]08/14/23 Gerald Low MD [address] [place] [address] PCP - GeneralFamily Xwqnkvye89/30/24 Miriam Gatica NP [address] [place] [address] Nurse PractitionerFamily Lckdzvgw95/29/24Team MemberRelationshipSpecialtyStart DateEnd Date StepanRenea LeenaDO [address] [place] [address] PCP - GeneralFamily Wytqzwfw79/12/23 [place] [address] [place] [address] Consulting PhysicianHematology and Oncology06/15/23Team MemberRelationship SpecialtyStart DateEnd Date Shaikh Ayala MD [address] [place] [address] PCP - GeneralInternal Medicine12/31/23 [place] [address] [place] [address] Consulting PhysicianHematology and Oncology06/15/23Team MemberRelationship SpecialtyStart DateEnd Date Shaikh Ayala MD [address] [place] [address] PCP - GeneralInternal Medicine07/15/23 Renea Barajas DO [address] [place] [address] PCP - [facility]08/14/23Team MemberRelationshipSpecialtyStart DateEnd Date Shaikh Ayala MD [address] [place] [address] PCP - GeneralInternal Medicine07/15/23 Renea Barajas DO [address] [place] [address] PCP - [facility]08/14/23Team MemberRelationshipSpecialtyStart DateEnd Date Shaikh Ayala MD [address] [place] [address] PCP - GeneralInternal Medicine12/31/23 [place] [address] [place] [address] Consulting PhysicianHematology and Oncology06/15/23Team MemberRelationship SpecialtyStart DateEnd Date Shaikh Ayala MD [address] [place] [address] PCP - GeneralInternal Medicine12/31/23 [place] [address] [place] [address] Consulting PhysicianHematology and Oncology06/15/23Team MemberRelationship SpecialtyStart DateEnd Date StepanRenea LeenaDO [address] [place] [address] PCP - [facility]08/14/23 Gerald Low MD [address] [place] [address] PCP - [facility]04/13/24 Miriam Gatica NP [address] [place] [address] Nurse PractitionerState [employer] Fwgihvnk05/29/24Team MemberRelationshipSpecialtyStart DateEnd Date StepanRenea dunaway LeenaDO [address] [place] [address] PCP - [facility]08/14/23 Gerald Low MD [address] [place] [address] PCP - [facility]State [facility] Fkprfaff07/30/24 Miriam Gatica NP [address] [place] [address] Nurse PractitionerState [employer] Rnrjnubo48/29/24Team MemberRelationshipSpecialtyStart DateEnd Date Gerald Low MD [address] [place] [address] PCP - GeneralFamily Iqutwljb24/30/24 Renea Barajas DO [address] [place] [address] PCP - [facility]07/29/24 Miriam Gatica NP Nurse Pract[facility]erMer[facility] Medical Centerly Itzhcuat70/29/24Team MemberRelationshipSpecialtyStart DateEnd Date Gerald Low MD [address] [place] [address] PCP - Generalmily Gszsoiym43/30/24 Renea Barajas DO [address] [place] [address] PCP - [facility]07/29/24 Miriam Gatica, ANJEL Nurse PractitionerState [facility] [employer] Tcntdhtm77/29/24Team MemberRelationshipSpecialtyStart DateEnd Date Gerald Low MD [address] [place] [address] PCP - GeneralFamily Unfljhus45/30/24 Miriam Gatica, ANJEL Nurse Practitionermily Baquxaph46/29/24Team MemberRelationshipSpecialtyStart DateEnd Date Gerald Low MD [address] [place] [address] PCP - GeneralFamily Iofkynwj08/30/24 Miriam aGtica ANJEL Nurse PractitionerMercy Medical Centerly Fwlykefo54/29/24Team MemberRelationshipSpecialtyStart DateEnd Date Gerald Low MD [address] [place] [address] PCP - GeneralState [facility] Ipdzjhtn38/30/24 Miriam Gatica NP Nurse PractitionerState [facility] [employer] [facility] [employer] Eofajhap22/29/24Team MemberRelationshipSpecialtyStart DateEnd Date Gerald Low MD [address] [place] [address] PCP - GeneralState [facility] Ibtdkpgw87/30/24 Miriam Gatica NP Nurse [facility]04/12/24Team MemberRelationshipSpecialtyStart DateEnd Date Gerald Low MD [address] [place] [address] PCP - GeneralState [facility] Jsvtgccj43/30/24 Miriam Gatica NP Nurse Pract[facility]04/12/24Team MemberRelationshipSpecialtyStart DateEnd Date Gerald Low MD [address] [place] [address] PCP - GeneralState [facility] Ohefqqpa06/30/24 Miriam Gatica NP Nurse PractitionerState [facility] [employer] Zdhdeccw98/29/24Team MemberRelationshipSpecialtyStart DateEnd Date eGrald Low MD [address] [place] [address] PCP - GeneralState [facility] Otllcwkm56/30/24 Miriam Gatica NP Nurse PractitionerState [facility] Auamipve54/29/24Team MemberRelationshipSpecialtyStart DateEnd Date Gerald Low MD [address] [place] [address] PCP - [facility]04/13/24 Miriam Gatica NP Nurse Pract[facility]er[facility]04/12/24Team MemberRelationshipSpecialtyStart DateEnd Date Gerald Low MD [address] [place] [address] PCP - GeneralState [facility] Mjvrvjxx14/30/24 Miriam Gatica, ANJEL Nurse PractitionerOpt[facility]04/12/24Team MemberRelationshipSpecialtyStart DateEnd Date Gerald Low MD [address] [place] [address] PCP - GeneralFami Ckkztvzj14/30/24 Miriam Gatica NP Nurse PractitionerState [facility] [employer] [facility] [employer] Thzafnmh51/29/24Team MemberRelationshipSpecialtyStart DateEnd Date Gerald Low MD [address] [place] [address] PCP - Generalmily Nehlhygv85/30/24 Miriam Gatica NP Nurse Pract[facility]er[facility] [place]04/12/24Te MemberRelationshipSpecialtyStart DateEnd Date Shaikh Ayala MD PCP - [facility]07/31/23Team MemberRelationshipSpecialtyStart DateEnd Date Gerald Low MD [address] [place] [address] PCP - [facility]04/13/24 Miriam Gatica NP Nurse Pract[facility]erOpt[facility] [place]04/12/24Team MemberRelationshipSpecialtyStart DateEnd Date Gerald Low MD [address] [place] [address] PCP - [facility]04/13/24 Miriam Gatica NP Nurse Pract[facility]er[facility]04/12/24Te MemberRelationshipSpecialtyStart DateEnd Date Shaikh Ayala MD PCP [facility]07/31/23Team MemberRelationshipSpecialtyStart DateEnd Date Gerald Low MD [address] [place] [address] PCP - [facility]04/13/24 Miriam Gatica NP Nurse PractitionerState Reform [employer] For [employer] Vcigysqd50/29/24Team MemberRelationshipSpecialtyStart DateEnd Date Gerald Low MD [address] [place] [address] PCP - GeneralState [facility] Tjsrjfnf53/30/24 Miriam Gatica NP Nurse PractitionerState Reform [employer] For Boys Gyerkcjs23/29/24Team MemberRelationshipSpecialtyStart DateEnd Date Gerald Low MD [address] [place] [address] PCP - [facility]04/13/24 Miriam Gatica NP Nurse Pract[facility]er[facility]04/12/24 Team Status: Active Member Role Status Dates Tomeka Rosado NP-C Primary Care Provider Active Team Status: Active Member Role Status Dates Tomeka Rosado NP-C Attending Provider Active Start: February 14, 2025 Team Status: Inactive Member Role Status Dates Tomeka Rosado NP-Slime Primary Care Provider Active Start: March 13, 2025 End: March 13, 2025Tomeka Rosado NP-CAttending ProviderActiveStart: March 13, 2025 End: March 13, 2025Team MemberRelationshipSpecialtyStart DateEnd Date Shaikh Ayala MD [address] [place] [place] [address] PCP - [facility]Western [facility]ern[facility]12/31/23 [place] [address] [place] [address] Consulting PhysicianHematology and Oncology06/15/23Team MemberRelationship SpecialtyStart [place] [address] [place] [address] Consulting PhysicianHematology and Oncology06/15/23Team MemberRelationship SpecialtyStart DateEnd Date Stepan Renea SternDO PCP - GeneralFamily Ttoeimoe07/12/237 [place] [address] [place] [address] Consulting PhysicianHematology and Oncology06/15/23Team MemberRelationship SpecialtyStart DateEnd Date Gerald Low MD [address] [place] [address] PCP - GeneralFamily Xgitjwnl71/30/24 Miriam Gatica NP Nurse PractitionerFamily Fstuyxin10/29/24Team MemberRelationshipSpecialtyStart DateEnd Date Gerald Low MD [address] [place] [address] PCP - GeneralFamily Ipsefney90/30/24 Miriam Gatica NP Nurse PractitionerMercy Medical Centerly Xsohzgfq27/29/24 Team Status: Active Member Role Status Dates LAVERNE Dolan Primary Care Provider Active Start: March 20, 2025 Pj Isabel DOAttlinh ProviderActiveStart: March 20, 2025 Team Status: Inactive Member Role Status Dates Tomeka Rosado NP-Slime Primary Care Provider Active Start: March 29, 2025 End: March 29, 2025Tomeka Rosado NP-Marcela ProviderActiveStart: March 29, 2025 End: March 29, 2025Team MemberRelationshipSpecialtyStart DateEnd Date Gerald Low MD [address] [place] [address] PCP - [facility]04/13/24 Miriam Gatica NP Nurse PractitionerOpt[facility]04/12/24Team MemberRelationshipSpecialtyStart DateEnd Date Gerald Low MD [address] [place] [id number] PCP - [facility]04/13/24 Miriam Gatica NP [facility] [place]04/12/24 Goals (unrecognized section and content) Goals may [...] BE BASED ON THE PRIMARY CLINICAL RECORDS. [facility] [employer] [facility]. provides no warranty or guarantee of the accuracy or completeness of information in this document.
[2025-04-12 11:13] LABS: Anion Gap 12.8; Blood Urea Nitrogen 27.0 mg/dL (7.0-18.0); Calcium 9.1 mg/dL (8.5-10.1); Carbon Dioxide 26.2 mmol/L (21.0-32.0); Chloride 106 mmol/L (98-107); Estimated GFR (African America 55 (>=60 mL/min/1.73m^2); Estimated GFR (Non-African Ame 45 (>=60 mL/min/1.73m^2); Glucose 154 mg/dL (74-106); Potassium 5.0 mmol/L (3.5-5.1); Sodium 140 mmol/L (136-145)
== END 2025-04-12 08:56 | disposition home or self-care (01) ==
LOC: LAB 08:56
PROVIDERS: PCP Nurse Practitioner; Visit Provider Nurse Practitioner Family
DX: I11.0 Hypertensive heart disease with heart failure (principal)
CPT/HCPCS: 36415; 80048

== ENCOUNTER 2025-04-19 08:09 | Outpatient (OUT) | payer MEDICARE, OTHER, SELFPAY ==
--- OUTSIDE RECORDS SUMMARY | 2023-11-04 03:30 | XMS_ITS ---
Author Organization [facility] in [place] Address [address] [place] [address] Care Team Providers Care Wool Broker Name Role Phone Shaikh Ayala MD Primary Care Provider Alan East Unavailable [phone] Allergies Allergen (clinical drug ingredient) Drug/Non Drug Allergy documented on EMR Reaction Allergy Type Onset Date Status azithromycin Azithromycin Unknown Drug Allergy ActivelisinoprilLisinoprilcoughDrug AllergyActiveciprofloxacinCiprofloxacin UnknownDrug AllergyActive REASON FOR VISIT KAREEN Medications Medication SIG (Take, Route, Frequency, Duration) Notes Start Date End Date Status Losartan Potassium 100 MG Oral; Duration: 90 Day s ActiveJardiance 25 MGOral; Duration: 90 DaysActiveSucralfate 1 GMOral; Duration: 90 DaysActiveRosuvastatin Calcium 20 MGOral; Duration: 90 DaysActivePantoprazole Sodium 40 MGOral; Duration: 30 DaysActivehydrALAZINE HCl 50 MG1 tablet with food Orally BID; Duration: 90 daysActiveGlimepiride 4 MGOral; Duration: 90 DaysActive Furosemide 20 MGOral; Duration: 90 DaysActiveBisoprolol Fumarate 5 MGOral; Duration: 90 DaysActiveAspirin Low Dose 81 MGCHEW 1 TABLET (81 MG) IN THE MORNING Oral; Duration: 90 DaysActiveAllopurinol 300 MGOral; Duration: 90 Days ActiveTamsulosin HCl 0.4 MGOral; Duration: 90 DaysActiveFluticasone Propionate 50 MCG/ACT1 spray in each nostril Nasally Once a dayActive Encounters Encounter Location Date Provider Diagnosis Pulmonary [facility] [place] [address] [place] [address] 11/04/2023 Alan Francis Plan Of Treatment No Information Progress Notes * Brent CAR FDOB: [birth year] (75 yo M)Acc No.[id number]:11/04/2023 UNLOCKED PROGRESS NOTE New Patient Patient: Brent MORTON :?Alan Francis DODOB:1950???Age:73 Y ???Sex:MaleDate:11/04/2023hone:[phone]:[id number], [id number]:Shaikh Jamie MD Subjective: * Chief Complaints: * 1 . KAREEN. * HPI: ???General:? Patient is referred from for KAREEN. ???Bedford Sleepiness Scale:?Bedford Sleepiness Scale?Chance of dozing while sitting and reading: - ?Chance of dozing while watching TV:?- ?Chance of dozing while sitting in a public place:?- ?Chance of dozing as a passenger in a car for an hour without a break:?- ?Chance of dozing while lying down in the afternoon to rest:?- ?Chance of dozing while sitting and talking tosomeone:?- ?Chance of dozing while sitting quietly after lunch:?- ?Chance of dozing in a stopped car for a few minutes in traffic:?- ?TOTAL SCORE:?0 ???STOP-BANG Sleep Apnea Questionnaire:?STOP?Do you SNORE loudly (louder than talking or loud enough to be heard through closed doors)??No ?Do you often feel TIRED, fatigued, or sleepy during daytime??No ?Has anyone OBSERVED you stop breathing duringyour sleep??No ?Do you have or are you being treated for highblood PRESSURE??No ?BANG?BMI more than 35kg/m2??No ?AGE over 50 years old??No ?NECK circumference > 16 inches (40cm)? No ?GENDER: Male??No ?Total Score:? .? * Medical History: * Surgical History: C ardiac Catheterization 07/27/2023, cholecystectomy , EGD . 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 * Medications: T aking Allopurinol 300 MG Tablet Oral , Taking Aspirin Low Dose(Aspirin) 81 MG Tablet Chewable CHEW 1 TABLET (81 MG) IN THE MORNING Oral , Taking Bisoprolol Fumarate 5 MG Tablet Oral , Taking Fluticasone Propionate 50 MCG/ACT Suspension 1 spray in each nostril Nasally Once a day , Taking Furosemide 20 MG Tablet Oral , Taking Glimepiride 4 MG Tablet Oral , Taking hydrALAZINE HCl 50 MG Tablet 1 tablet with food Orally BID , Taking Jardiance(Empagliflozin) 25 MG Tablet Oral , Taking Losartan Potassium 100 MG Tablet Oral , Taking Pantoprazole Sodium 40 MG Tablet Delayed Release Oral , Taking Rosuvastatin Calcium 20 MG Tablet Oral , Taking Sucralfate 1 GM Tablet Oral , Taking Tamsulosin HCl 0.4 MG Capsule Oral * Allergies: L isinopril: cough - Side Effects, Ciprofloxacin: Allergy, Azithromycin: Allergy. Objective: * Vitals: Assessment: Plan: * Treatment: * Preventive Medicine: ??COVID Vaccination:?Has patient had COVID Vaccination?COVID Vaccination?Yes 04/28/2023 ??Immunization Status:?Pneumovacc?pneumovacc -02/24/2023.?Influenza?03/20/2023.?Zostivax?05/24/2016.?Boostrix?10/27/2018.? * * Electronic signature of Alan Francis , DO on 04/19/2025 at 08:22 AM ESTSign off status: PendingVisit Status:?R/S (Rescheduled) * Provider: Abdirahman Francis DO Date: 0 11/04/2023 Generated for Printing/Faxing/eTransmitting on:?04/19/2025 08:22 AM EST History and Physical Notes * HPI (History of Present Illness) CategorySub-CategoryDetailNotesCategory NotesSTOP-BANG Sleep Apnea Questionnaire STOPDo you SNORE loudly (louder than talking or loud enough to be heard through closed doors)?: NoDo you often feel TIRED, fatigued, or sleepy during daytime?: NoHas anyone OBSERVED you stop breathing during your sleep?: NoDo you have or are you being treated for high blood PRESSURE?: NoBANGBMI more than 35kg/m2?: No AGE over 50 years old?: NoNECK circumference > 16 inches (40cm)?: NoGENDER: Male?: NoTotal Score: Epworth Sleepiness ScaleEpworth Sleepiness ScaleChance of dozing while sitting and reading:: -Chance of dozing while watching TV:: - Chance of dozing while sitting in a public place:: -Chance of dozing as a passenger in a car for an hour without a break:: -Chance of dozing while lying down in the afternoon to rest:: -Chance of dozing while sitting and talking to someone:: -Chance of dozing while sitting quietly after lunch:: -Chance of dozing in a stopped car for a few minutes in traffic:: -TOTAL SCORE:: 0
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
--- OUTSIDE RECORDS SUMMARY | 2025-04-19 08:20 | XMS_ITS | CCD ---
Author Organization [facility] Care Team Providers Care Marketing And Development Coordinator Name Role Phone PHYSICIAN, DEFAULT Admitting Unavailable PHYSICIAN, DEFAULT Attending Unavailable Vanessa Steele Unavailable [phone] Unavailable Unavailable CEDRIC, DR MENDEZ Primary [...] Renea G Primary Care Provider Jamie HERNANDEZ, [facility] Primary Care Provider Unavailable Primary Care Provider UnavailMaribeth Celeste Attending Unavailable STEPAN, RENEA Referring Unavailable Neftali Knowles MD Unavailable Jamie HERNANDEZ, [facility] Primary Care Provider Jamie HERNANDEZ, [facility] Primary Care Provider Stepan DO, Renea G Unavailable [employer], Miriam Unavailable Maranda HERNANDEZ, [facility] Primary Care Provider Jamie HERNANDEZ, [facility] Primary Care Provider [facility] Primary Care Unavailable NEFTALI KNOWLES Attending Unavailable [facility] Unavailable DINARY, FAZEL Attending Unavailable CHOWDHRY, VIC Referring Unavailable [facility] Primary Care Unavailable DINARY, FAZEL Attending Unavailable DINARY, FAZEL Referring Unavailable [facility] Primary Care Unavailable NEFTALI KNOWLES Referring Unavailable [facility] Primary Care Unavailable DINARY, FAZEL Attending Unavailable DINARY, FAZEL Referring Unavailable [facility] Primary Care Unavailable [employer], Miriam Unavailable [phone] Stepan DO, Renea G Unavailable Tomeka Rosado Attending Unavailable Tomeka Rosado Admitting Unavailable Jamie HERNANDEZ, [facility] Primary Care Provider GRACE JUSTICE Referring Unavailable FAWWAD, ALEXANDER Primary Care Unavailable GRACE JUSTICE Attending Unavailable GRACE JUSTICE Referring Unavailable JAMIE ALEXANDER Primary Care Unavailable Alonzo ROSACTomeka Attending Provider [phone] Alonzo RN [employer]Che[employer]enne[employer]omeka Primary Care Provider [phone] Renea Barajas DO Primary Care Provider Unavaila Gerald Avendano MD Primary Care Provider Pj Isabel DO Attending Provider Jamie HERNANDEZ, Primary Care Provider [phone] Renea Barajas DO Unavailable Renea Barajas DO G Unavailable ROSENDO SANCHEZ Attending Unavailable PIRKL, LEE ANN Referring Unavailable HORANI, BELEN Referring Unavailable PIRKL, LEE ANN Referring Unavailable HORANI, BELEN Referring Unavailable ANTONIANOE Attending Unavailable ANTONIA, NOE Attending Unavailable MASSOUH, RAFIK Referring Unavailable HORANI, BELEN Admitting Unavailable HORANI, BELEN Attending Unavailable MIRIAM GATICA Attending UnavailJENNIFFER Mcclain Attending Unavailable AICHADRIAN, TOMEKA Attending Unavailable AICHADRIAN, TOMEKA Attending Unavailable JENNIFFER SEARS Attending Unavailable ALONZO, TOMEKA Attending Unavailable ALONZO, TOMEKA Attending Unavailable JENNIFFER SEARS Attending Unavailable JONATHAN PETTY Attending Unavailable TOMEKA ROSADO Referring Unavailable JONATHAN PETTY Referring Unavailable JONATHAN PETTY Attending Unavailable Allergies Allergy ClassificationReported Allergen(s)Allergy TypeDate of OnsetReaction(s) FacilityAngiotensin Converting Enzyme (GODWIN) Inhibitors (4 sources)Lisinopril; Translations: [Lisinopril TABS]Drug Opxytri03-60-7998 [facility] Work Phone: Macrolides (antibiotic) (1 source)ErythromycinDrug Unyqgwt09-29-8128Wbrlv (See Comments)[facility] Work Phone: Quinolones (antibiotic) (4 sources)Ciprofloxacin; Translations: [ciprofloxacin]Drug Yhgguny94-96-1640 Other (See Comments)[facility] (20 sources)Ciprofloxacin; Translations: [ciprofloxacin]Drug Iitfnqw63-42-1079 Unknown, Other, Other (See Comments)[facility] (20 sources)Lisinopril; Translations: [Lisinopril TABS]Drug Mcmirnf08-32-1057 Unknown, GqgtqHU-Cjrbtdkuovwypbca-Mgbfbsnz SJ[facility] [address] DO Work Phone: (6 sources)Amino Acids; Translations: [LISINOPRIL]Drug Dnsdnfb97-33-3697YpgomPiq [facility] (1 source)CiprofloxacinDrug [facility]ergyC[facility] (1 source)ErythromycinDrug AllergyC[facility] (20 sources)Erythromycin; Translations: [ERYTHROMYCIN]Drug Xbneusb28-37-5035 Unknown, GI bleeding, Other (See Comments), GI intolerance, OtherUnAs[facility]ab[facility] Work Phone: (20 sources)Azithromycin; Translations: [AZITHROMYCIN]Drug Offfazv22-68-6480 UnknownNOWA Healthcare (20 sources)LisinoprilAllergy to wrcxiubtk96-11-2051YxrnhBEVR Healthcare Medications Current Medications MedicationDrug Class(es)DatesSig (Normalized)Sig (Original)allopurinol 300 mg oral tablet (20 sources)Xanthine Oxidase InhibitorStart: 09-17-2020 End: 34-11-2782mzda 1 tablet by mouth once dailyallopurinol (Zyloprim) 300 MG tablet Indications: Gout, unspecified cause, unspecified chronicity, unspecified site Take 1 tablet (300 mg) by mouth Daily 90 tablet 1 11/03/2024 Active Allopurinol 300 MG Oral Tablet Quantity: 0 Refills: 0 Ordered: 08-Jan-2021 DO ActiveamLODIPine 10 mg oral tablet (20 sources)Dihydropyridine Calcium Channel BlockerStart: 09-17-2020 End: 46-12-1844wvgr 1 tablet by mouth once dailyamLODIPine (NORVASC) 10 MG tablet Take 1 tablet by mouth daily 0 09/17/2020 Active End: 59-80-1641pcor 5 mg by mouth every twenty-four hours as neededamLODIPine (Norvasc) 10 MG tablet Take 5 mg by mouth Daily as needed 01/09/2025 Discontinued (Therapy completed)amLODIPine Besylate 10 MG Oral Tablet Quantity: 0 Refills: 0 Ordered: 08-Jan-2021 DO Activeamoxicillin 875 mg oral tablet (1 source)Penicillin-class AntibacterialStart: 94-67-4556mqhx 1 tablet by mouth every twelve hoursamoxicillin 875 mg / clavulanate 125 mg oral tablet (19 sources)Penicillin-class AntibacterialStart: 11-28-2024 End: 31-73-3718hcmu 1 tablet by mouth in the morningamoxicillin-clavulanate (Augmentin) 875-125 MG tablet Indications: Diverticulitis Take 1 tablet (875 mg) by mouth in the morning and 1 tablet (875 mg) before bedtime. Do all this for 10 days. 20 tablet 11/28/2024 12/08/2024 ActiveStart: 72-26-6529nrbs 1 tablet by mouth every twelve hoursAmoxicillin-Pot Clavulanate 875-125 MG Oral Tablet TAKE 1 TABLET EVERY 12 HOURS UNTIL GONE. Quantity: 10 Refills: 0 Ordered: 23-Jan-2021 Irwin Batista MD Start : 23-Jan-2021 Activeaspirin 81 mg oral tablet (20 sources)Platelet Aggregation Inhibitor, Nonsteroidal Anti-inflammatory Drug Start: 86-95-5024ytwo 1 tablet by mouth once dailyAspirin 81 mg tablet Active 81 MG PO Daily March 25, 2025 12:00am Complies with drug therapyStart: 07-27-2023 End: 89-45-2189zzrq 1 tablet by mouth once dailyaspirin 81 MG chewable tablet Take 1 tablet by mouth daily 07/27/2023 Activetake 1 tablet by mouth once daily aspirin 81 MG EC tablet Take 81 mg by mouth Daily Activebisoprolol fumarate 5 mg oral tablet (20 sources)beta-Adrenergic BlockerStart: 01-03-2025 End: 22-51-8165rdad 1 tablet by mouth once dailybisoprolol (Zebeta) 5 MG tablet Take 5 mg by mouth Daily 01/03/2025 ActiveStart: 04-02-2024 End: 76-52-2434dtmhqwetsb (Zebeta) 5 MG tablet 04/02/2024 04/12/2024 Discontinued (Duplicate order)Start: 07-10-2023 End: 30-86-4312jfsxwzxilj (Zebeta) 10 MG tablet Indications: Primary hypertension [...] (2 sources)Sodium-Glucose Cotransporter 2 InhibitorStart: 07-20-2023 End: 50-37-6386qjck 1 tablet by mouth in the morningFarxiga 10 MG Indications: Stage 3a chronic kidney disease (HCC) ([facility]) Take 1 tablet (10 mg) bymouth in the morning. 90 tablet 0 07/20/2023 07/30/2023 Discontinued (Cost of medication)empagliflozin 25 mg oral tablet (20 sources)Sodium-Glucose Cotransporter 2 InhibitorStart: 07-30-2023 End: 79-85-2842xbux 1 tablet by mouth once dailyempagliflozin (Jardiance) 25 MG Indications: Stage 3a chronic kidney disease ([facility]) , Type 2 diabetes mellitus with stage 3a chronic kidney disease, without long-term current use of insulin ([facility]) Take 1 tablet (25 mg) by mouth Daily 90 tablet 1 08/23/2024 Active fluticasone propionate 0.05 mg/actuat metered dose nasal spray (20 sources)CorticosteroidStart: 03-10-2025 End: 39-15-2908tcmm 1 spray(s) nasal route once dailyStart: 09-17-2020 [...] oral tablet (20 sources)Loop DiureticStart: 10-07-2020 End: 66-13-0015xpcb 1 tablet by mouth once dailyfurosemide (Lasix) 20 MG tablet Indications: Primary hypertension Take 1 tablet (20 mg) by mouth Daily 90 tablet 1 04/12/2024 ActiveFurosemide 20 MG Oral Tablet Quantity: 0 Refills: 0 Ordered: 08-Jan-2021 DO Activeglimepiride 4 mg oral tablet (20 sources)SulfonylureaStart: 10-07-2020 End: 33-37-2219mjhy 1 tablet by mouth before mealtimeglimepiride (Amaryl) [...] 25 mg oral tablet (2 sources)Arteriolar VasodilatorStart: 19-34-6087wbyk 2 tablets by mouth at bedtimehydrALAZINE (APRESOLINE) 25 MG tablet Take 2 tablets by mouth in the morning and at bedtime 0 08/20/2023 Activeomeprazole 40 mg delayed release oral capsule (20 sources)Proton Pump InhibitorStart: 07-11-2024 End: 39-50-9178xmfiyubwvf (PriLOSEC) [address] capsule Indications: Gastroesophageal reflux disease without esophagitis TAKE 1 CAPSULE IN THE MORNING BEFORE A MEAL (DO NOT CRUSH OR CHEW) 90 capsule 3 07/11/2024 Active Start: 01-23-2021 End: 53-82-2270qkax 1 capsule by mouth twice dailyomeprazole (PriLOSEC) [address] capsule Take 1 capsule (40 mg) by mouth 2 times a day. 01/23/2021 ActiveStart: 78-30-1484mxys 1 capsule by mouth once daily before breakfastomeprazole (PRILOSEC) 40 MG delayed release capsule Take 1 capsule by mouth every morning (before breakfast) 0 11/01/2020 ActiveOmeprazole 10 MG Oral Capsule Delayed Release Quantity: 0 Refills: 0 Ordered: 08-Jan-2021 DO Activepantoprazole 40 mg delayed release oral tablet (15 sources)Proton Pump InhibitorStart: 10-07-2023 End: 37-21-6023naqu 1 tablet by mouth twice dailypantoprazole (ProtoNix) 40 mg EC tablet Indications: Primary malignant neuroendocrine neoplasm of duodenum (Multi) Take 1 tablet (40 mg) by mouth 2 times a day. Do not crush, chew, or split. 120 tablet 2 11/15/2023 Activerosuvastatin calcium 20 mg oral tablet (20 sources)HMG-CoA Reductase InhibitorStart: 04-12-2024 End: 12-45-9801xkba 1 tablet by mouth once dailyrosuvastatin (Crestor) 20 MG tablet Indications: Mixed hyperlipidemia Take 1 tablet (20 mg) by mouth Daily 04/12/2024 ActiveStart: 12-10-2022 End: 02-44-1577oous 1 tablet by mouth in the morningrosuvastatin (Crestor) 10 MG tablet Indications: Mixed hyperlipidemia (CMS/HCC) Take 1 tablet (10 mg) by mouth in the morning. 90 tablet 3 12/10/2022 04/12/2024 Discontinued (Discontinued by another clinician)Start: 09-17-2020 End: 65-56-5796dvty 2 tablets by mouth once dailyrosuvastatin (CRESTOR) 10 MG tablet Take 2 tablets by mouth daily 09/17/2020 ActiveRosuvastatin Calcium 10 MG Oral Tablet Quantity: 0 Refills: 0 Ordered: 08-Jan-2021 DO Activesacubitril 24 mg / valsartan 26 mg oral tablet (9 sources)Angiotensin 2 Receptor BlockerStart: 02-54-9492maui 1 tablet by mouth twice dailySacubitril-Valsartan (Entresto) 24-26 mg tablet Active 1 TAB PO Twice daily March 29, 2025 12:00am Complies with drug therapytake 1 tablet by mouth in the morningsacubitril-valsartan (Entresto) 24-26 MG tablet Take 1 tablet by mouth in the morning and 1 tablet before bedtime. Activespironolactone 25 mg oral tablet (9 sources)Aldosterone AntagonistStart: 51-52-2826tnfa 1 tablet by mouth once dailySpironolactone (Aldactone) 25 mg tablet Active 25 MG PO Daily March 25, 2025 12:00am Complies with drug therapytamsulosin hydrochloride 0.4 mg oral capsule (20 sources)alpha-Adrenergic BlockerStart: 66-72-4856ilyhvvmdvm HCl (TAMSULOSIN ORAL) Take by mouth. Active Completed/Discontinued Medications MedicationDrug Class(es)DatesSig (Normalized)Sig (Original)5 ml bupivacaine hydrochloride 5 mg/ml injection (14 sources)Amide Local AnestheticStart: 03-29-2025 End: 02-18-8688zhdryazhypg PF (Marcaine) 0.5 % injection 2 mLStart: 03-29-2025 End: mL, Injection, Once PRN Procedure, Starting on Thu03/29/25 at 0958, For 1 doseStart: 11-30-2024 End: 87-07-1503kjyxqtutxth PF (Marcaine) 0.5 % injection 2 mLStart: 11-30-2024 End: mL, Injection, Once PRN Procedure, Starting on Thu11/30/24 at 1018, For 1 doseStart: 08-12-2024 End: 20-51-7928sntickcejbg PF (Marcaine) 0.5 % injection 1 mLStart: 08-12-2024 End: mL, Injection, Once PRN Procedure, Starting on Thu08/12/24 at 0917, For 1 doseStart: 04-13-2024 End: 04-03-9852mpoyfsjedfg PF (Marcaine) 0.5 % injection 1 mLStart: 04-13-2024 End: mL, Injection, Once PRN Procedure, Starting on Thu04/13/24 at 0947, For 1 dose10 ml EPINEPHrine 0.1 mg/ml prefilled syringe (2 sources)alpha-Adrenergic Agonist, beta-Adrenergic Agonist, Catecholamine Start: 10-07-2023 End: 42-30-8188Gy needed, Starting on Thu10/07/23 at 0758, Intraprocedure Fluticasone Propionate CREA (13 sources)Fluticasone Propionate CREA Quantity: 0 Refills: 0 Ordered: 08-Jan-2021 DO Activegadobenate dimeglumine (MULTIHANCE) injection 16 mL (1 source)Start: 12-13-2024 End: 16-83-1670hqja 1 dose intravenously once16 mL, IntraVENous, IMG ONCE PRN, 1 dose, Starting on Thu12/13/24 at 1326, Until Thu12/13/24 at 1015,Othergadobenate dimeglumine (MULTIHANCE) injection 16.1 mL (1 source)Start: 12-01-2023 End: 42-60-7509xgemvdugot dimeglumine (MULTIHANCE) injection 16.1 mLiohexol (OMNIPaque) 350 mg iodine/mL solution 50 mL (1 source)Start: 12-31-2023 End: mL, intravenous, Once in imaging, Starting on Thu12/31/23 at 0738, For 1 doseiohexol (OMNIPaque) 350 mg iodine/mL solution 75 mL (2 sources)Start: 05-26-2023 End: 47-84-6553ihilczk (OMNIPaque) 350 mg iodine/mL solution 75 mLlosartan potassium 100 mg oral tablet (20 sources)Angiotensin 2 Receptor BlockerStart: 09-17-2020 End: 58-20-2283fvhu 1 tablet by mouth once dailyLosartan 100 mg tablet Discontinued 100 MG PO Daily 90 February 14, 2025 1:29pm February 15, 2025 6:01pmLosartan Potassium 100 MG Oral Tablet Quantity: 0 Refills: 0 Ordered: 08-Jan-2021 DO Active1 ml methylPREDNISolone acetate 40 mg/ml injection (14 sources)CorticosteroidStart: 03-29-2025 End: 16-10-0282yqxnviJYVSOPYucpzk acetate (DEPO-Medrol) injection 40 mgStart: 03-29-2025 End: 73-39-660389 mg, Intra-articular, Once PRN Procedure, Starting on Thu03/29/25 at 0958, For 1 doseStart: 11-30-2024 End: 99-37-3996zgczibNVIHMIAiyefv acetate (DEPO-Medrol) injection 40 mgStart: 11-30-2024 End: 68-03-784232 mg, Intra-articular, Once PRN Procedure, Starting on Thu11/30/24 at 1018, For 1 doseStart: 08-12-2024 End: 21-67-8708hvzlnxZVZSFQKnyyos Acetate (DEPO-Medrol) injection 40 mgStart: 08-12-2024 End: 72-24-792141 mg, Intra-articular, Once PRN Procedure, Starting on Thu08/12/24 at 0917, For 1 doseStart: 04-13-2024 End: 58-76-3407akjgvhAJSLZHKykzki acetate (DEPO-Medrol) injection 40 mgStart: 04-13-2024 End: 86-58-648739 mg, Intra-articular, Once PRN Procedure, Starting on Thu04/13/24 at 0947, For 1 dosepioglitazone 30 mg oral tablet (20 sources)Peroxisome Proliferator Receptor alpha Agonist, Peroxisome Proliferator Receptor gamma Agonist, Thiazolidinedione End: 30-54-4276ymtd 1 tablet by mouth once dailypioglitazone (Actos) 30 mg tablet Take 1 tablet (30 mg) by mouth once daily. 10/07/2023 Discontinued (Therapy completed)Pioglitazone HCl - 30 MG Oral Tablet Quantity: 0 Refills: 0 Ordered: 08-Jan-2021 DO Activesimethicone 66.7 mg/ml oral suspension (6 sources)Start: 06-30-2024 End: 86-37-6627Aj needed, Starting on Thu06/30/24 at 0954, IntraprocedureStart: 12-29-2023 End: 90-25-4254Hi needed, Starting on Thu12/29/23 at 1330, IntraprocedureStart: 06-10-2023 End: 46-19-7283ygkescycwbd (Mylicon) dropssucralfate 1000 mg oral tablet (20 sources)Aluminum ComplexStart: 10-07-2023 End: 93-14-2356fkrm 1 tablet by mouth four times daily 1 hour(s) before bedtime sucralfate (Carafate) 1 gram tablet Indications: Primary malignant neuroendocrine neoplasm of duodenum (Multi) TAKE 1 TABLET (1 G) BY MOUTH 4 TIMES A DAY. TAKE 1 HOUR BEFORE MEALS AND AT BEDTIME 360 tablet 1 10/29/2023 06/30/2024 Discontinued (Therapy completed)Start: 75-15-1489yewy 1 tablet by mouth four times daily at bedtimeSucralfate 1 GM Oral Tablet TAKE 1 TABLET 4 TIMES DAILY, BEFORE MEALS AND AT BEDTIME. Quantity: 360Refills: 2 Ordered: 01-May-2021 Irwin Batista MD Start : 23-Jan-2021 Active Problems Active Problems Problem ClassificationProblemDateDocumented DateEpisodic/ChronicBiliary tract disease (3 sources)Acute cholecystitis; Translations: [ACUTE CHOLECYSTITIS]Onset: 41-61-0079GhpmtcdlRbrnty of other GI organs; peritoneum (1 source)Malignant carcinoid tumor of the duodenum; 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]Onset: 49-00-6701KfcbfycIfcdmvw dysrhythmias (20 sources)Nonsustained ventricular tachycardia ; Translations: [NSVT (nonsustained ventricular tachycardia)]Onset: 402323-94-3010TabxepsJyoofbn kidney disease (20 sources)Chronic kidney disease stage 3A ; Translations: [Stage 3a chronic kidney disease (HCC)]Onset: 483297-13-8909YgupsqmJqfkuwxpff associated with dizziness or vertigo (2 sources)Dizziness; Translations: [Dizziness]Onset: 93-92-3198Gxjuxfmf Congestive heart failure; nonhypertensive (2 sources)Chronic systolic heart failure; Translations: [Chronic systolic (congestive) heart failure]56-70-2422PmeljdgOjvxiwhp mellitus with complications (20 sources)Polyneuropathy due to type 2 diabetes mellitus; Translations: [Type 2 diabetes mellitus with diabetic polyneuropathy]Onset: 06-24-2021 Resolved: 208451-11-5063SgyvaxjMsoitfep of white blood cells (20 sources)Leukemoid reaction; Translations: [Leukemoid reaction]Onset: 189728-87-1089OcgcgwtFvcyvzdxv of lipid metabolism (20 sources)Hyperlipidemia, unspecified; Translations: [Mixed hyperlipidemia] Onset: 93-16-008235152290-87-8402BbtkzjpMyskocvxamccae and diverticulitis (20 sources)Diverticulosis of large intestine without perforation or abscess without bleeding; Translations: [Diverticulosis of sigmoid colon]Onset: 337551-33-2736GprspqzVjftyjrrfk disorders (20 sources)Gastro-esophageal reflux disease without esophagitis; Translations: [Gastroesophageal reflux disease]Onset: 230680-05-3589UcdnnffSvgchffjg hypertension (20 sources)Essential (primary) hypertension; Translations: [Essential hypertension]Onset: 12-12-2020 Resolved: 101771-05-6077ZzdrzhfDtdodybdt and duodenitis (1 source)Unspecified chronic gastritis without bleeding; Translations: [Unspecified chronic gastritis without bleeding]Onset: 48-17-1449AkpftiqOzix and other crystal arthropathies (20 sources)Gout; Translations: [Gout, unspecified]Onset: ChronicHyperplasia of prostate (20 sources)Benign prostatic hypertrophy with outflow obstruction; Translations: [Hypertrophy (benign) of prostate with urinary obstruction and other lower urinary tract symptoms (LUTS)]Onset: 260173-42-9026UdfgvquCbbuznpca neoplasm without specification of site (20 sources)Primary malignant neuroendocrine neoplasm of duodenum; 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]Onset: 28-63-3740Znnrwga Osteoarthritis (20 sources)Arthritis; Translations: [Unspecified osteoarthritis, unspecified site]51-59-2061WqrsarjYseez aftercare (1 source)Other nursing home (current) drug therapy; Translations: [OTH [facility] CURRENT DRUG THERAPY]Onset: 83-63-0610LupjouirQxlna and unspecified benign neoplasm (1 source)Benign carcinoid tumor of the duodenum; Translations: [Benign carcinoid tumor of the duodenum]Onset: 97-50-4958WnqzcrccGhslt and unspecified benign neoplasm (5 sources)Adenoma of left adrenal gland; Translations: [Benign neoplasm of left adrenal gland]50-39-7235IwsohutwWlvlf and unspecified benign neoplasm (1 source)Benign neoplasm of left adrenal gland; Translations: [Benign neoplasm of left adrenal gland]Onset: 12-66-1548PgcczpmqEtzdz and unspecified benign neoplasm (2 sources)Adrenal adenoma; Translations: [Benign neoplasm of unspecified adrenal gland]07-95-4093ZaxavanzYzssw connective tissue disease (4 sources)Disorder of musculoskeletal system; Translations: [Other specified disorders of synovium, left ankle and foot]01-12-7447RgqmjengYrvzw diseases of kidney and ureters (1 source)Cyst of kidney, acquired; Translations: [Cyst of kidney, acquired] Onset: 70-12-2663LtmeslsrWmdqe disorders of stomach and duodenum (1 source)Other diseases of stomach and duodenum; Translations: [Other diseases of stomach and duodenum]Onset: 87-27-9607NlkfxvzvEiwmc endocrine disorders (20 sources)Hypoglycemia; Translations: [Hypoglycemia, unspecified]Onset: 004862-48-2180CrecgagYwklx endocrine disorders (20 sources)Mass of left adrenal gland; Translations: [Other specified disorders of adrenal gland]Onset: 629885-90-5321ZvxtiqxDmicp inflammatory condition of skin (20 sources)Pityriasis rosea; Translations: [Pityriasis rosea]Onset: 02-24-2023 10-16-1958QtnxxtzBezut liver diseases (2 sources)Liver disease, unspecified; Translations: [Liver disease, unspecified]Onset: 15-80-7835NyevmokQdrto liver diseases (1 source)Abnormal levels of other serum enzymes; Translations: [ABNORMAL LEVELS OTHER SERUM ENZYMES]Onset: 64-06-2337UdxrghinRzsbc nervous system disorders (20 sources)Chronic pain; Translations: [Other chronic pain]Onset: 02-24-2023 22-36-5741OwsfquaRjczs non-traumatic joint disorders (7 sources)Pain in left shoulder; Translations: [Pain in joint, shoulder region] 03-22-2347ItvdnqxfKmmar nutritional; endocrine; and metabolic disorders (20 sources)Body mass index 30+ - obesity; Translations: [Obesity, unspecified] Onset: 278315-92-8453GhqzvlwRqeox nutritional; endocrine; and metabolic disorders (20 sources)Obesity; Translations: [Class 1 obesity with serious comorbidity in adult]Onset: 121221-51-8401UyaraioHlcvh nutritional; endocrine; and metabolic disorders (6 sources)Obesity caused by energy imbalance; Translations: [Class 1 obesity due to excess calories with serious comorbidity in adult, unspecified BMI] 28-50-8342UvwgtkhGqmkn upper respiratory disease (20 sources)Allergic rhinitis; Translations: [Allergic rhinitis, unspecified] Onset: 938951-39-5100VrvgafsMvtuh upper respiratory infections (20 sources)Chronic sinusitis; Translations: [Chronic sinusitis, unspecified] Onset: 415615-05-4271BhqxjgoIypmsqkn codes; unclassified (20 sources)Hypersomnia; Translations: [Hypersomnia, unspecified]Onset: 348718-07-3178WqaasluQwpenzoz codes; unclassified (1 source)Personal history of other specified conditions; Translations: [PERSONAL HISTORY OTH SPEC CONDITION]Onset: 29-08-5267ImgdkbwuTowbjcqh codes; unclassified (2 sources)Edema; Translations: [Edema, unspecified]82-75-0561GifmcklzUhxqdwaztm arthritis and related disease (1 source)Rheumatoid arthritis, unspecified; Translations: [Rheumatoid arthritis, unspecified]Onset: 64-45-0606FrflxacKhkwpxziop (except in labor) (1 source)Other Gram-negative sepsis; Translations: [OTHER GRAM-NEGATIVE SEPSIS] Onset: 96-79-6663BrlqlfbdHgauaqtmtymy (1 source)CONTACT W/AND (SUSP) EXPOS COVID-19; Translations: [CONTACT W/AND (SUSP) EXPOS COVID-19]Onset: 35-32-5127Tzooxlhxkveo (1 source)Gastric intestinal metaplasia, unspecified; Translations: [Gastric intestinal metaplasia, unspecified]Onset: 89-50-8264Ebzzkjokrmpf (2 sources)Chronic pain of right kaem29-21-4309Mmwzsjukdtcg (2 sources)M25.472 - Effusion, left ankleUnclassified (2 sources)Arthritis of left ssomtfik09-50-3748Bzzoakkmkpgy (2 sources)NSVTOnset: 28-50-8658Kdoqkxickmqc (1 source)Other ventricular tachycardia; Translations: [Other ventricular tachycardia]Onset: 07-13-2023 Past or Other Problems Problem ClassificationProblemDateDocumented DateEpisodic/ChronicAbdominal pain (20 sources)Right upper quadrant pain; Translations: [Unspecified abdominal pain]Onset: 84-80-9639JdoroufbLzbbxkopnswpwc/social admission (20 sources)First encounter by subject; Translations: [Persons encountering health services in other specified circumstances]Onset: 07-15-2023 Resolved: 469772-56-5897QbekfmyxQkrkme; other and unspecified primary (1 source)Personal history of malignant carcinoid tumor of small intestine; Translations: [Personal history of malignant carcinoid tumor of sm int]Onset: 85-83-4538EwdxxhnpLglafif dysrhythmias (20 sources)Bradycardia; Translations: [Bradycardia, unspecified]Onset: 310389-27-1957NqygvjwsRelvmmrine and other anemia (1 source)Anemia, unspecified; Translations: [Anemia, unspecified]Onset: 23-73-3292BaobndhqXpuallyfnf and other anemia (20 sources)Anemia; Translations: [Anemia, unspecified]Onset: 02-24-2023 37-08-8640BwrkpvdxLibepzky mellitus without complication (19 sources)Type 2 diabetes mellitus without complications; Translations: [Type 2 diabetes mellitus]Onset: 12-12-2020 Resolved: 710196-76-1505QboqnqeK Codes: Fall (20 sources)Fall; Translations: [Unspecified fall, initial encounter]Onset: 768034-00-2913TcxyfkpsQmyddjfxcgbqteoy hemorrhage (1 source)Hemorrhage of anus and rectum; Translations: [HEMORRHAGE OF ANUS AND RECTUM]Onset: 33-78-0639CqwbuzcfJzwy disorders (12 sources)Mood disordersOnset: Other aftercare (2 sources)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; Translations: [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]Onset: 27-08-7370MwmxjzwkPbofc aftercare (2 sources)Encounter for follow-up examination after completed treatment for malignant neoplasm; Translations:[Encntr for follow-up exam after trtmt for malignant neoplasm]Onset: 52-39-9782QpfzwsawSkhfd and unspecified benign neoplasm (1 source)Benign neoplasm of ascending colon; Translations: [BENIGN NEOPLASM OF ASCENDING COLON]Onset: 91-99-8004AccsygqnOpvgc and unspecified benign neoplasm (1 source)Polyp of colon; Translations: [POLYP OF COLON]Onset: 12-12-2020 EpisodicOther and unspecified benign neoplasm (1 source)Polyp of stomach and duodenum; Translations: [Polyp of stomach and duodenum]Onset: 56-14-2476QklgjqxpOcsph and unspecified benign neoplasm (20 sources)Tubular adenoma of colon; Translations: [Benign neoplasm of colon, unspecified]Onset: 855164-61-5607VrxjmokmCohuk connective tissue disease (20 sources)Rotator cuff arthropathy of left shoulder; Translations: [Unspecified rotator cuff tear or rupture of left shoulder, not specified as traumatic]Onset: 461839-18-1500MseyjsjlPyhon diseases of kidney and ureters (20 sources)Cyst of kidney; Translations: [Cyst of kidney, acquired]Onset: 908531-99-2709KjicoblaTgupc gastrointestinal disorders (4 sources)Dysphagia, unspecified; Translations: [DYSPHAGIA UNSPECIFIED]Onset: 71-52-6502ZasovkhfIwcpb gastrointestinal disorders (20 sources)Esophageal dysphagia; Translations: [Other dysphagia]Onset: 081056-22-6162NjchyfyaRysxo gastrointestinal disorders (20 sources)Slow transit constipation; Translations: [Slow transit constipation] Onset: 340353-46-0241AenvydyhGirtn lower respiratory disease (20 sources)Nodule of lung; Translations: [Solitary pulmonary nodule]Onset: 023478-21-5630XkkvjxpaGeoez nervous system disorders (20 sources)Impairment of balance; Translations: [Other abnormalities of gait and mobility]Onset: 996343-74-2759ItkcfjcpDeome non-traumatic joint disorders (20 sources)Pain in right knee; Translations: [Pain in joint, lower leg]Onset: 508705-41-7320ZoiaoexlNatbs non-traumatic joint disorders (20 sources)Swollen ankle region; Translations: [Effusion, left ankle]Onset: 800466-28-6871AxkdkqlpYvuaz nutritional; endocrine; and metabolic disorders (20 sources)Morbid obesity; Translations: [Morbid (severe) obesity due to excess calories]Onset: 11-24-2022 Resolved: 927527-64-1600SbvlpjuBlcwi screening for suspected conditions (not mental disorders or infectious disease) (20 sources)Patient encounter status; Translations: [Screening for malignant neoplasms of prostate]Onset: 06-12-2021 Resolved: 964471-30-1094XvammxpmBxmxo upper respiratory infections (20 sources)Acute upper respiratory infection; Translations: [Acute upper respiratory infection, unspecified]Onset: 11-16-2023 Resolved: 975880-32-1836YsfxbwixYugtshnjb (except that caused by tuberculosis or sexually transmitted disease) (20 sources)Left lower zone pneumonia; Translations: [Pneumonia, unspecified organism]Onset: 10-12-2023 Resolved: 476271-35-6999TwbeusrvXsusgyfwo and history of mental health and substance abuse codes (20 sources)Personal history of nicotine dependence; Translations: [Tobacco use and exposure - finding]Onset: 881576-61-6386XlspfrzzUgovuhj (20 sources)Near syncope; Translations: [Syncope and collapse]Onset: 07-10-2023 73-26-2299MshrixvqMtjybspeabpk (8 sources)Onset: 143398-56-6934Gkpqyrrsctif (1 source)Other ventricular tachycardia; Translations: [Other ventricular tachycardia]Onset: 03-21-2025 Results Test NameValueInterpretationReference UtgarLnrlmbuw24xo 28-40-703036Jlumtmrhf lab results from 04/12/2025: Rosendo Sanchez, GABINO Nraayan MA Renal function is improved but still a little elevated. Please have him hold lasix and repeat BMP in 1-1.5 weeks. Please make sure he avoids foods high in potassium as his potassium is high normal. He is to let us know if he develops any sx's of fluid retention with holding the lasix. Reassure him that Entresto has diuretic properties so lasix may only be needed PRN. Thanks, Heather Spoke with patient and made him aware. He will have labs in 2 weeks and hold lasix. 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 Faxed to [facility] per his request.[facility]36on 45-74-529188Zeemigulu lab results from 04/05/2025: Rosendo Sanchez, GABINO Maria Guadalupe SARAH Narayan His kidney function worsened from when he was in the hospital. Would like for him to hold aldactone for now. Hold entresto for 2 days then resume and have follow-up BMP in 1 week. Thank you. Spoke with patient's and she verbalized understanding. BMP order faxed to [facility] HospitalXR Ankle - left 3 Viewson 85-06-1895Dxsxcwt Result: Notable talar tilt with degenerative changes to the tibiotalar joint with sclerosisAtrium Health Wake Forest Baptist High Point Medical CenterRadiology Study observation (narrative) [facility] Informationon 75-20-4998LvhyaevGEMA Mccartney 03/29/2025 10:05 AM L Inj/Asp: L [...] neurovascular intact s/p injection. . ( Codes 58180) Procedure, treatment alternatives, risks and benefits explained, specific risks discussed. Consent was given by the patient. Patient was prepped and draped in the usual sterile fashion. [facility]37on *We will plan to switch losartan to EntrestoNMadison HealthFollow-Upon 03-28-2025 Follow-[id number] Yusef Car 1950 M Date Provider Department Center 03/28/2025 166-ROSENDO SANCHEZ EZEQUIEL Narayanan [facility] Family History Problem Relation [...] Mother Father Sister Brother Brother Level of Service:24929 [place] OFFICE/OUTPATIENT ESTABLISHED HIGH MDM 40 MIN Reason for Visit and Comments: Follow-up [963052] - Patient is here today for a follow up appointment [facility] for chest pressure and fluid around his heart. Patient is currently wearing a 30 day monitor.Patient would like to know if its ok to return to taking his Allopurinol in the pm. NSVT [Other] Frequent PVCs [Other] Hyperlipidemia [182] Hypertension [057489] Bradycardia [967234] Atrial tachycardia [Other] CKDA [Other] Dizziness [300903] - Dizziness/lightheaded with standingNormalUniFulton County Health Center30The patient is Moderately Stable - Low risk [...] monitored and maintained or improved Outcome: Progressing .[facility] HospitalBASIC METABOLIC PANELon 03-22-2025 Anion gap [Moles/Vol]11 mmol/LNormal7-20UnFayette County Memorial Hospital Comment on above:Performed By: #### [id number] #### [facility] ([facility]) [address] [place], [place] [address]Ncsmoxb [Mass/Vol]9.1 mg/dLNormal8.6-10.3UnFayette County Memorial HospitalComment on above:Performed By: #### [id number] #### [facility] ([facility]) [address] [place], [place] [address]Qzkwkeug [Moles/Vol]106 mmol/VMlfiyu55-109JmflfjythqFayette County Memorial HospitalComment on above:Performed By: #### [id number] #### [facility] ([facility]) [address] [place], [place] [address]NF4 [Moles/Vol]23 mmol/UVkwqjy54-81TgqdomcazyFayette County Memorial HospitalComment on above:Performed By: #### [id number] #### [facility] ([facility]) [address] [place], [place] [address]Ohvnjvdnan [Mass/Vol]1.34 mg/dLHigh0.70-1.30UnFayette County Memorial HospitalComment on above:Performed By: #### [id number] #### [facility] ([facility]) [address] [place], [place] [address]GNUZZYILJD FILTRATION RATE ML/MIN/1.73 SQ M.ZOQKRFQQR95.2 mL/min/1.73m*2Low>60.0UnFayette County Memorial HospitalComment on above:Result Comment: [facility]???s estimated glomerular filtration rate (eGFR) will [...] group of individuals.Performed By: #### [id number] #### [facility] ([facility]) [address] [place] [address]Sgstkfn [Mass/Vol]113 mg/hGNvdj59-620RdgozevzvaFayette County Memorial HospitalComment on above:Performed By: #### [id number] #### [facility] ([facility]) [address] [place] [address]Iltmxawef [Moles/Vol]4.2 mmol/LNormal3.5-5.1UnFayette County Memorial HospitalComment on above:Performed By: #### [id number] #### [facility] ([facility]) [address] [place] [address]Zzmrdf [Moles/Vol]136 mmol/YBgjtki253-430TohtukqkooFayette County Memorial HospitalComment on above:Performed By: #### [id number] #### [facility] ([facility]) [address] [place] [address]Ofjy nitrogen [Mass/Vol]30 mg/dLHigh7-25UnF[facility] County Memorial HospitalComment on above:Performed By: #### [id number] #### [facility] ([facility]) [address] [place] [address]ZTHU NITROGEN/CREATININE (MASS RATIO) IN SER/PLAS22.4Normal [facility] HospitalComment on above:Performed By: #### [id number] #### [facility] ([facility]) [address] [place] [address]BMCvm 16-22-2640Jzotvcitsxy distribution width (RBC) [Ratio]15.9 %High11.5-15.0UnFayette County Memorial HospitalComment on above:Performed By: #### [id number] #### [facility] ([facility]) [address] [place] [address]SJOTHRGQECS MEAN CORPUSCULAR HEMOGLOBIN CONCENTRATION (G/DL) BY WKRCLDQLQ23.5 g/jSZejvrg44.0-35.0UnFayette County Memorial HospitalComment on above:Performed By: #### [id number] #### [facility] ([facility]) [address] [place] [address]Hxbitoeezm (Bld) [Volume fraction]42.8 %Vhfgmk86.0-50.0 [facility] HospitalComment on above:Performed By: #### [id number] #### [facility] ([facility]) [address] [place] [address]Nnxxyywsqb (Bld) [Mass/Vol]13.9 g/rPQabupd59.0-17.0UnFayette County Memorial HospitalComment on above:Performed By: #### [id number] #### [facility] ([facility]) [address] [place], [place] [address]XMT (RBC) [Entitic mass]28.7 ooPcjnhw62.0-33.0UnFayette County Memorial HospitalComment on above:Performed By: #### [id number] #### [facility] ([facility]) [address] [place], [place] [address]WPC (RBC) [Entitic vol]88.2 tARxhwzt39.0-98.0UnFayette County Memorial HospitalComment on above:Performed By: #### [id number] #### [facility] ([facility]) [address] [place], [place] [address]TQOCIUMMM (10*3/UL) IN BLOOD AUTOMATED [id number] 10*3/uLNormal 150-400UnF[facility] County Memorial HospitalComment on above:Performed By: #### [id number] #### [facility] ([facility]) [address] [place], [place] [address]TWU (Bld) [#/Vol]4.85 10*6/uLNormal4.20-5.70UnF[facility] County Memorial HospitalComment on above:Performed By: #### [id number] #### [facility] ([facility]) [address] [place] [address]FMZ (Bld) [#/Vol]9.48 10*3/uLNormal4.00-10.60UnF[facility] County Memorial HospitalComment on above:Performed By: #### [id number] #### [facility] ([facility]) [address] [facility] [address]RTXVY PANELon 24-41-4534EQLB/HDL4.6 mg/dLNormalUniFulton County Health CenterComment on above:Performed By: #### [id number] #### [facility] ([facility]) [address] [place], [place] [address]Nyvdsmhqwnx [Mass/Vol]96 mg/eALkg158-397GfgpbdfwckFayette County Memorial HospitalComment on above:Performed By: #### [id number] #### [facility] ([facility]) [address] [facility] [place], [place] [address]Pvdelcwjo [Mass/Vol]164 mg/dLHigh<150UnFayette County Memorial HospitalComment on above:Result Comment: TRIGLYCERIDE REFERENCE RANGE: 20 YEARS AND OLDER CARDIOVASCULAR RISK LESS THAN 150 mg/dL LOW RISK 150 TO 199 mg/dL BORDERLINE RISK 200 mg/dL AND GREATER HIGH RISKPerformed By: #### [id number] #### [facility] ([facility]) [address] [facility], [place] [address]Fgzumnnbk [Mass/Vol]42 mg/dLNormal0-160UnF[facility] County Memorial HospitalComment on above:Performed By: #### [id number] #### [facility] ([facility]) [address] [facility] [place], [place] [address]Mrhiihrgf [Mass/Vol]21 mg/bIYup12-37EwopqafsgjFayette County Memorial HospitalComment on above:Performed By: #### [id number] #### [facility] ([facility]) [address] [facility], [place] [address]QHW HDL CHOL. (LDL+VLDL)75NormalUniversParma Community General HospitalComment on above:Performed By: #### [id number] #### [facility] ([facility]) [address] [place], [place] [address]LEXBT VLDL-C33 mg/dLNormal0-40UnF[facility] County Memorial HospitalComment on above:Performed By: #### [id number] #### [facility] ([facility]) [address] [place] [address]MLWAIMCATru 90-28-3631Zrivqtewh [Mass/Vol]2.0 mg/dLNormal1.9-2.7 [facility] HospitalComment on above:Performed By: #### [id number] #### [facility] ([facility]) [address] [place] [address]AOCEIDIVWBak 24-41-1814Exziuhvcg [Mass/Vol]3.7 mg/dLNormal 2.5-5.0UnF[facility] County Memorial HospitalComment on above:Performed By: #### [id number] #### [facility] ([facility]) [address] [place] [address]PBFF GLUCOSE METER UNSOLICITED RESULTSon 67-86-8699Ngdiuyr [Mass/Vol]153 mg/oPFmuh57-941HvvaphixbtFayette County Memorial HospitalComment on above:Order Comment: Waived Testing in the ED is performed under the ED CLIA certificate #[id number].Result Comment: jarizmePerformed By: #### [id number] ####[facility] ([facility])[address] [place] [address]Xiyqgiu [Mass/Vol]133 mg/yBXdom59-693LylqnwojgsFayette County Memorial HospitalComment on above:Order Comment: Waived Testing in the ED is performed under the ED CLIA certificate #[id number].Result Comment: jarizmePerformed By: #### [id number] #### [facility] ([facility]) [address] [place] [address]wj 28-23-215070Bvk patient is Moderately Stable - Low risk of patient condition declining or worsening The patient's goals for the shift include comfort and sleep The clinical goals for the shift include stable vitals; safety; comfort Over the shift, the patient continued to make progress toward the following goals.NormalUnFayette County Memorial Hospital30The patient is Moderately Stable - Low [...] Adult Goal: Skin integrity remains intact Outcome: ProgressingNormalUniversParma Community General Hospital30The patient is Moderately Stable - Low risk of patient condition declining or worsening The patient's goals for the shift include comfort The clinical goals for the shift include stable vitals Over the shift, the patient continued to make progress toward the following goals.NormalUnFayette County Memorial HospitalANTI-XA (HEPARIN LEVEL)on 78-94-4363TFKEBKP UNFRACTIONATED (U/ML) IN PPP BY CHROMOGENIC METHOD0.45 IU/mL Normal0.3-0.7UnFayette County Memorial HospitalComment on above:Order Comment: Check anti-Xa level every 6 hours while on heparin infusion, or per protocol. Result Comment: Rivaroxaban and Apixaban will interfere with the anti Xa assay used to monitor UFH and LMWH.Performed By: #### [id number] #### [facility] ([facility]) [address] [place], [place] [address]YIPHta 79-43-4822SMRPNKFFF PARTIAL THROMBOPLASTIN TIME IN PPP BY COAGULATION ASSAY32.4 JgacceaRdvejc36.0-35.0[facility] Comment on above:Order Comment: Baseline aPTT before initiating heparin infusion.Result Comment: Clinical significance of the APTT is questionable in the presence of heparin.Performed By: #### [id number] #### [facility] ([facility]) [address] [place], [place] [address]L-XACH NATRIURETIC PEPTIDEon 97-26-7895Nyzwhdgwfwb peptide B (Bld) [Mass/Vol]460 pg/mLHigh0-100UnF[facility] County Memorial HospitalComment on above:Performed By: #### [id number] #### [facility] ([facility]) [address] [place], [place] [address]YQGOL METABOLIC PANELon 94-34-7268Jbdaf gap [Moles/Vol]15 mmol/L Normal7-20UnFayette County Memorial HospitalComment on above:Performed By: #### [id number] #### [facility] ([facility]) [address] [place] [address]Upxpgsh [Mass/Vol]9.1 mg/dLNormal8.6-10.3UnF[facility] County Memorial HospitalComment on above:Performed By: #### [id number] #### [facility] ([facility]) [address] [place], [place] [address]Rrxdinct [Moles/Vol]105 mmol/RHyulls67-071LqyqvwzzlzFayette County Memorial HospitalComment on above:Performed By: #### [id number] #### [facility] ([facility]) [address] [place] [address]XE3 [Moles/Vol]21 mmol/NPhkdek15-04DdlkagdzjyFayette County Memorial HospitalComment on above:Performed By: #### [id number] #### [facility] ([facility]) [address] [place], [place] [address]Vencohuftt [Mass/Vol]1.23 mg/dLNormal0.70-1.30UnF[facility] County Memorial HospitalComment on above:Performed By: #### [id number] #### [facility] ([facility]) [address] [place], [place] [address]MPBUGVKAPZ FILTRATION RATE ML/MIN/1.73 SQ M.HBYXZCIMH53.2 mL/min/1.73m*2Normal>60.0UnFayette County Memorial HospitalComment on above: Result Comment: [facility]???s estimated glomerular filtration rate (eGFR) will [...] affect anyone group of individuals.Performed By: #### [id number] #### [facility] ([facility]) [address] [place], [place] [address]Txeqtde [Mass/Vol]112 mg/hHJfpj11-525AxvzksfuerFayette County Memorial HospitalComment on above:Performed By: #### [id number] #### [facility] ([facility]) [address] [place], [place] [address]Lrzqhpqjn [Moles/Vol]4.0 mmol/LNormal3.5-5.1UnFayette County Memorial HospitalComment on above:Performed By: #### [id number] #### [facility] ([facility]) [address] [place], [place] [address]Yzmhpv [Moles/Vol]137 mmol/SBydgsi703-213RkcpqqadgzFayette County Memorial HospitalComment on above:Performed By: #### [id number] #### [facility] ([facility]) [address] [place], [place] [address]Sfec nitrogen [Mass/Vol]31 mg/dLHigh7-25UnF[facility] County Memorial HospitalComment on above:Performed By: #### [id number] #### [facility] ([facility]) [address] [place], [place] [address]WKPA NITROGEN/CREATININE (MASS RATIO) IN SER/PLAS25.2Normal [facility] HospitalComment on above:Performed By: #### [id number] #### [facility] ([facility]) [address] [place], [place] [address]ZPCfl 12-16-3871Zzktfrnbkjx distribution width (RBC) [Ratio]15.8 %High11.5-15.0UnFayette County Memorial HospitalComment on above:Performed By: #### [id number] #### [facility] ([facility]) [address] [place], [place] [address]PSWIEFINVNI MEAN CORPUSCULAR HEMOGLOBIN CONCENTRATION (G/DL) BY SSVLVUPSI35.0 g/eNWyhtje27.0-35.0UnFayette County Memorial HospitalComment on above:Performed By: #### [id number] #### [facility] ([facility]) [address] [place], [place] [address]Qhxbbtrbtk (Bld) [Volume fraction]45.0 %Mcwbyn65.0-50.0 [facility] HospitalComment on above:Performed By: #### [id number] #### [facility] ([facility]) [address] [place] [address]Xcmnzmfwxm (Bld) [Mass/Vol]14.4 g/fZQdojzr87.0-17.0UnFayette County Memorial HospitalComment on above:Performed By: #### [id number] #### [facility] ([facility]) [address] [place] [address]LWK (RBC) [Entitic mass]28.7 juBfmtao77.0-33.0UnFayette County Memorial HospitalComment on above:Performed By: #### [id number] #### [facility] ([facility]) [address] [place] [address]CXU (RBC) [Entitic vol]89.6 nLGfyien86.0-98.0UnFayette County Memorial HospitalComment on above:Performed By: #### [id number] #### [facility] ([facility]) [address] [place], [place] [address]AJYBXKBKQ (10*3/UL) IN BLOOD AUTOMATED [id number] 10*3/uLNormal 150-400UnFayette County Memorial HospitalComment on above:Performed By: #### [id number] #### [facility] ([facility]) [address] [place], [place] [address]KDU (Bld) [#/Vol]5.02 10*6/uLNormal4.20-5.70UnFayette County Memorial HospitalComment on above:Performed By: #### [id number] #### [facility] ([facility]) [address] [place], [place] [address]OFQ (Bld) [#/Vol]9.59 10*3/uLNormal4.00-10.60UnF[facility] County Memorial HospitalComment on above:Performed By: #### [id number] #### [facility] ([facility]) [address] [place], [place] [address]DND WITH AUTO DIFFERENTIALon 89-86-9598Uusjqzijl (Bld) [#/Vol] 0.04 10*3/uLNormal0.00-0.20UnFayette County Memorial HospitalComment on above: Performed By: #### [id number] #### [facility] ([facility]) [address] [place], [place] [address]Havvkauku/100 WBC (Bld)0.4 %Normal0.0-1.0UnFayette County Memorial HospitalComment on above:Performed By: #### [id number] #### [facility] ([facility]) [address] [facility] [place], [place] [address]Hqcsxdhkbgp (Bld) [#/Vol]0.12 10*3/uLNormal0.00-0.50UnFayette County Memorial HospitalComment on above:Performed By: #### [id number] #### [facility] ([facility]) [address] [place], [place] [address]Zgoosqbgqrj/100 WBC (Bld)1.1 %Normal0.0-6.0UnFayette County Memorial HospitalComment on above:Performed By: #### [id number] #### [facility] ([facility]) [address] [place], [place] [address]Aykmshwaczi distribution width (RBC) [Ratio]15.9 %High11.5-15.0 [facility] HospitalComment on above:Performed By: #### [id number] #### [facility] ([facility]) [address] [place], [place] [address]JXNOWOFNPPK MEAN CORPUSCULAR HEMOGLOBIN CONCENTRATION (G/DL) BY XXEUTDPAL53.5 g/lLQylmth76.0-35.0UnFayette County Memorial HospitalComment on above:Performed By: #### [id number] #### [facility] ([facility]) [address] [place], [place] [address]Rlmkyqdohs (Bld) [Volume fraction]45.8 %Ggrywk46.0-50.0 [facility] HospitalComment on above:Performed By: #### [id number] #### [facility] ([facility]) [address] [place] [address]Oszkczfsex (Bld) [Mass/Vol]14.9 g/aFZvzbbf74.0-17.0UnFayette County Memorial HospitalComment on above:Performed By: #### [id number] #### [facility] ([facility]) [address] [place] [address]Dsorxvad granulocytes (Bld) [#/Vol]0.04 10*3/uLNormal0.00-0.20 [facility] HospitalComment on above:Performed By: #### [id number] #### [facility] ([facility]) [address] [place] [address]Jvpbckft granulocytes/100 WBC (Bld)0.4 %Normal0.0-1.0UnFayette County Memorial HospitalComment on above:Performed By: #### [id number] #### [facility] ([facility]) [address] [place] [address]Fiyccdyivfj (Bld) [#/Vol]1.85 10*3/uLNormal1.20-4.00UnFayette County Memorial HospitalComment on above:Performed By: #### [id number] #### [facility] ([facility]) [address] [place] [address]Xlvzcesclgv/100 WBC (Bld)16.7 %Low20.0-45.0UnFayette County Memorial HospitalComment on above:Performed By: #### [id number] #### [facility] ([facility]) [address] [place] [address]DRJ (RBC) [Entitic mass]28.7 ztEalvli74.0-33.0UnFayette County Memorial HospitalComment on above:Performed By: #### [id number] #### [facility] ([facility]) [address] [place] [address]LQO (RBC) [Entitic vol]88.1 qLRwmfmf58.0-98.0UnFayette County Memorial HospitalComment on above:Performed By: #### [id number] #### [facility] ([facility]) [address] [place] [address]Vmzbetuuu (Bld) [#/Vol]0.95 10*3/uLNormal0.10-1.00UnFayette County Memorial HospitalComment on above:Performed By: #### [id number] #### [facility] ([facility]) [address] [place] [address]Xsxdaattg/100 WBC (Bld)8.6 %Normal5.0-12.0UnFayette County Memorial HospitalComment on above:Performed By: #### [id number] #### [facility] ([facility]) [address] [place] [address]Ruxbcawltgr (Bld) [#/Vol]8.08 10*3/uLHigh1.60-7.60UnFayette County Memorial HospitalComment on above:Performed By: #### [id number] #### [facility] ([facility]) [address] [place] [address]Swxvkerfjct/100 WBC (Bld)72.8 %High40.0-72.0UnFayette County Memorial HospitalComment on above:Performed By: #### [id number] #### [facility] ([facility]) [address] [place] [address]DYWX (PER 100 WBCS) BY AUTOMATED COUNT0.0 %Opcbrn5McuhwxghhaFayette County Memorial HospitalComment on above:Performed By: #### [id number] #### [facility] ([facility]) [address] [place] [address]FZIMGLPHK (10*3/UL) IN BLOOD AUTOMATED RZCZX019 10*3/uLHigh 150-400UnFayette County Memorial HospitalComment on above:Performed By: #### [id number] #### [facility] ([facility]) [address] [place] [address]RQF (Bld) [#/Vol]5.20 10*6/uLNormal4.20-5.70UnFayette County Memorial HospitalComment on above:Performed By: #### [id number] #### [facility] ([facility]) [address] [place] [address]SBP (Bld) [#/Vol]11.08 10*3/uLHigh4.00-10.60UnF[facility] County Memorial HospitalComment on above:Performed By: #### [id number] #### [facility] ([facility]) [address] [place] [address]BBLODMZIJMGSN METABOLIC PANELon 08-22-3339Zgbtsia [Mass/Vol]4.3 g/dLNormal3.5-5.7UnFayette County Memorial HospitalComment on above:Performed By: #### [id number] #### [facility] ([facility]) [address], [place] [address]JEF [Catalytic activity/Vol]101 U/QYilcrn73-904RtveouqmtpFayette County Memorial HospitalComment on above:Performed By: #### [id number] #### [facility] ([facility]) [address], [place] [address]EBO [Catalytic activity/Vol]9 U/LNormal7-52UnFayette County Memorial HospitalComment on above:Performed By: #### [id number] #### [facility] ([facility]) [address], [place] [address]Jowmt gap [Moles/Vol]12 mmol/LNormal7-20UnFayette County Memorial HospitalComment on above:Performed By: #### [id number] #### [facility] ([facility]) [address] [place], [place] [address]KEA [Catalytic activity/Vol]13 U/XSyihox18-59BfvydjdzfkFayette County Memorial HospitalComment on above:Performed By: #### [id number] #### [facility] ([facility]) [address] [place], [place] [address]Gohxvudrx [Mass/Vol]0.6 mg/dLNormal0.3-1.0UnFayette County Memorial HospitalComment on above:Performed By: #### [id number] #### [facility] ([facility]) [address] [place] [address]Ffzmrnd [Mass/Vol]9.4 mg/dLNormal8.6-10.3UnFayette County Memorial HospitalComment on above:Performed By: #### [id number] #### [facility] ([facility]) [address] [place] [address]Bnxtehlx [Moles/Vol]103 mmol/NDqxkvs12-260UsxbbmihupFayette County Memorial HospitalComment on above:Performed By: #### [id number] #### [facility] ([facility]) [address] [place] [address]NR8 [Moles/Vol]25 mmol/LWbfbfg67-01HhxirwqtmdFayette County Memorial HospitalComment on above:Performed By: #### [id number] #### [facility] ([facility]) [address] [place] [address]Yenrqcbtft [Mass/Vol]1.33 mg/dLHigh0.70-1.30UnFayette County Memorial HospitalComment on above:Performed By: #### [id number] #### [facility] ([facility]) [address] [place] [address]YHADFSHHLL FILTRATION RATE ML/MIN/1.73 SQ M.EVDKXDMHL83.7 mL/min/1.73m*2Low>60.0UnFayette County Memorial HospitalComment on above:Result Comment: [facility]???s estimated glomerular filtration rate (eGFR) will [...] affect anyone group of individuals.Performed By: #### [id number] #### [facility] ([facility]) [address], [place] [address]Jcbygyu [Mass/Vol]122 mg/kOMpxz21-360TxqgzkewdpFayette County Memorial HospitalComment on above:Performed By: #### [id number] #### [facility] ([facility]) [address] [place] [address]Crkhbhmoi [Moles/Vol]4.2 mmol/LNormal3.5-5.1UnFayette County Memorial HospitalComment on above:Performed By: #### [id number] #### [facility] ([facility]) [address] [place], [place] [address]Aktboht [Mass/Vol]7.0 g/dLNormal6.0-8.3UnFayette County Memorial HospitalComment on above:Performed By: #### [id number] #### [facility] ([facility]) [address], [place] [address]Qkpith [Moles/Vol]136 mmol/CHpebcn169-300VisaaenmenFayette County Memorial HospitalComment on above:Performed By: #### [id number] #### [facility] ([facility]) [address], [place] [address]Jvhu nitrogen [Mass/Vol]31 mg/dLHigh7-25UnFayette County Memorial HospitalComment on above:Performed By: #### [id number] #### [facility] ([facility]) [address] [place], [place] [address]GUAV NITROGEN/CREATININE (MASS RATIO) IN SER/PLAS23.3Normal [facility] HospitalComment on above:Performed By: #### [id number] #### [facility] ([facility]) [address] [place], [place] [address]GUDNVSFpt 14-95-3214UKYGSRW Attestation signed by Zeus Schroeder MD at [...] normal pressures. Patient was transferred over to [facility] for possible cardiac catheterization. On presentation [...] kidney disease) stage 3, GFR 30-59 ml/min ([facility]), Diabetes 1.5, managed as type 2 ([facility]), HTN (hypertension), Hyperlipidemia, NSVT (nonsustained ventricular tachycardia) ([facility]), Orthostatic hypotension, and Primary malignant neoplasm of duodenum ([facility]). Surgical History He has a past [...] Value Ventricular Rate 74 Atrial Rate 74 NV Interval 192 QRS DURATION 160 QT Interval 498 QTC CALCULATION(BAZETT) 552 P Odell 52 R-Odell 133 T Wave Odell -12 Impression Sinus rhythm with occasional Premature [...] Relevant Imaging Results ECG (more content not included)...NormalUnFayette County Memorial HospitalHIGH SENSITIVITY TROPONIN Ion 34-10-8900AJ TROPONIN I (NG/L)28 ng/LHigh<20UnFayette County Memorial HospitalComment on above:Performed By: #### [id number] #### [facility] ([facility]) [address] [place], [place] [address]TV TROPONIN I (NG/L)43 ng/LHigh<20UnFayette County Memorial HospitalComment on above:Performed By: #### [id number] #### [facility] ([facility]) [address] [place], [place] [address]EC TROPONIN I (NG/L)43 ng/LHigh<20UnFayette County Memorial HospitalComment on above:Performed By: #### [id number] #### [facility] ([facility]) [address] [place], [place] [address]SCdu 61-07-9044ZOR&P reviewed. The patient was examined and there are no changes to the H&P.NormalUnFayette County Memorial Hospital MAGNESIUMon 93-71-7729Vhqrazqli [Mass/Vol]2.1 mg/dLNormal1.9-2.7UnFayette County Memorial HospitalComment on above:Performed By: #### [id number] #### [facility] ([facility]) [address] [place], [place] [address]PMLUPTLQzk 99-46-9681BJPBKJXHVrhgcl given to ALONSO Adams from Rebecca Any medications or safety alerts were reviewed. Any pending diagnostics and notifications were also reviewed, as well as any safety concerns or issues, abnormal labs, abnormal imagining, and abnormal assessment findings. Questions were answered. Bedside report given to ALONSO Adams from ALONSO Fernandez. color laboratory technician RN presented site to bedside RN. Bedside RN visualized site and palpated site to ensure there was no hematoma or bruising, and femoral site appears flat. Both bedside RN and shrimp pond laborer RN mutually agreed that the site presents normal. color laboratory technician RN and bedside RN either palpated or used a doppler to assess pulses on the patient.NormalUnFayette County Memorial HospitalPHOSPHORUSon 03-21-2025 Magnesium [Mass/Vol]3.6 mg/dLNormal2.5-5.0UnF[facility] Hospital Comment on above:Performed By: #### [id number] #### [facility] ([facility]) [address] [place], [place] [address]TVIV GLUCOSE METER UNSOLICITED RESULTSon 95-94-4420Vixgjkq [Mass/Vol]124 mg/qQEpjo76-554DfmfwhcuheFayette County Memorial HospitalComment on above:Order Comment: Waived Testing in the ED is performed under the ED CLIA certificate #[id number].Result Comment: gmbengr7Vprmpqufe By: #### [id number] #### [facility] ([facility]) [address] [place], [place] [address]Hktxjep [Mass/Vol]156 mg/wJBsmc40-648BfouyvipiyFayette County Memorial HospitalComment on above:Order Comment: Waived Testing in the ED is performed under the ED CLIA certificate #[id number].Result Comment: jarizme Performed By: #### [id number] #### [facility] ([facility]) [address] [place], [place] [address]Wnkjdhc [Mass/Vol]130 mg/yNLjze69-895EwhfcoogxtFayette County Memorial HospitalComment on above:Order Comment: Waived Testing in the ED is performed under the ED CLIA certificate #[id number].Result Comment: jarizme Performed By: #### [id number] #### [facility] ([facility]) [address] [place], [place] [address]UHQCKUO-OBXea 62-86-3334UBY IN PPP BY COAGULATION ASSAY1.02 Normal0.90-1.10UnFayette County Memorial HospitalComment on above:Result Comment: ACCCP RECOMMENDED INR FOR [...] OPTIMAL THERAPEUTIC RANGE. CHEST 1995;108:231S-246S.Performed By: #### [id number] #### [facility] ([facility]) [address], [place] [address]MWYCMEHWZWJ TIME (PT) IN PPP BY COAGULATION ASSAY13.4 Seconds Rmytcn13.3-14.8UnFayette County Memorial HospitalComment on above:Performed By: #### [id number] #### [facility] ([facility]) [address] [place], [place] [address]Dzakcqgwo Auto (Bld) [#/Vol]Ordered By: Pj Isabel on 99-22-5765Jxzqrntkg (Bld) [#/Vol]0.0 10 3/uL0.0-0.1FBerger HospitalBasophils/100 WBC Auto (Bld)Ordered By: Pj Isabel on 03-20-2025 Basophils/100 WBC (Bld)0.2 %0.2-2.0[facility] CampusCholesterol in LDL Calc [Mass/Vol]Ordered By: Ruben Coats on 45-39-2707Vixrrbtcnay in LDL [Mass/Vol]58.0 mg/dLKettering Health Main CampusComment on above:<100 mg/dl OIHAXXX196-453 mg/dl NEAR OR ABOVE PMWZGNZ144-365 mg/dl BORDERLINE JGYU930-774 mg/dl HIGH>190 mg/dl VERY HIGHCholesterol in VLDL Calc [Mass/Vol]Ordered By: Ruben Coats on 04-20-6018Admgftiqvkj in VLDL [Mass/Vol]22.8 mg/dLKettering Health Main CampusEosinophils/100 WBC Auto (Bld)Ordered By: Pj Isabel on 28-92-1974Cdovvebmxia/100 WBC (Bld)1.2 %0.9-7.0[facility] CampusErythrocyte distribution width Auto (RBC) [Ratio]Ordered By: Pj Isabel on 07-19-4150Wvvluazitvc distribution width (RBC) [Ratio]15.8 %High11.0-15.0 [facility] CampusFibrin D-dimer [Presence] in Platelet poor plasma by Latex agglutinationOrdered By: Pj Isabel on 15-06-3943Iwzypy D- dimer LA Ql (PPP)0.69 mg/L FEUCritically high<=0.59[facility] CampusComment on above:RESULTS CALLED TO CONTRERAS MOLINA RN @BY Dominique De Anda 0318Increases in D-Dimer concentration observed withthromboembolic events [...] in non- AmericanOrdered By: Ruben Coats on 55-75-5806EHS/1.73 sq M.predicted among non-blacks MDRD (S/P/Bld) [Vol rate/Area]55 mL/min/{1.73_m2}Low>=60 mL/min/1.73m 2FBerger HospitalHematocrit Auto (Bld) [Volume fraction]Ordered By: Pj Isabel on 18-28-9745Cwtirmigra (Bld) [Volume fraction]46.2 %42.0-54.0 [facility] CampusHemoglobin [Mass/volume] in BloodOrdered By: Pj Isabel on 17-04-4054Yobpbiusxc (Bld) [Mass/Vol]15.1 g/dL14.0-18.0 [facility] CampusLaboratory - Chemistry and Chemistry - challengeOrdered By: Ruben Coats on 70-83-0840Iievhnb [Mass/Vol]9.3 mg/dL 8.5-10.1FBerger HospitalChloride [Moles/Vol]105 mmol/L98-107 [facility] CampusCholesterol [Mass/Vol]111 mg/dL<=200[facility] CampusCholesterol in HDL [Mass/Vol]31 mg/bFRet27-68CyhwvvldrKettering Health Main CampusComment on above:> or =60 mg/dl - LOW CARDIOVASCULAR RISK<40 mg/dl - HIGH CARDIOVASCULAR RISKCO2 [Moles/Vol]25.1 mmol/L21.0-32.0 [facility] CampusCreatinine [Mass/Vol]1.28 mg/dL0.70-1.30 [facility] CampusGFR/1.73 sq M.predicted MDRD (S/P/Bld) [Vol rate/Area]mL/min/{1.73_m2}>=60 mL/min/1.73m 2FBerger Hospital Glucose [Mass/Vol]152 mg/sZHnhf51-315LdbsazzifKettering Health Main CampusMagnesium [Mass/Vol]2.2 mg/dL1.8-2.4FBerger HospitalPotassium [Moles/Vol] 4.5 mmol/L3.5-5.1FBucyrus Community Hospitalodium [Moles/Vol]141 mmol/L 136-145[facility] CampusTriglyceride [Mass/Vol]114 mg/dL<=150 [facility] CampusTS Qn1.983 m[IU]/L0.358-3.740[facility] CampusUrea nitrogen [Mass/Vol]28.0 mg/dLHigh7.0-18.0[facility] CampusUrea nitrogen/Creatinine [Mass ratio]21.9 mg/mgKettering Health Main CampusLaboratory - Chemistry and Chemistry - challengeOrdered By: Pj Isabel on 89-97-9576Jadnnmtliip peptide B (Bld) [Mass/Vol]2610.0 pg/mLCritically high<=1800.0[facility] CampusComment on above: RESULTS CALLED TO SEVERIANO ARANGO RN @BY Dominique Reinoso at [address]Laboratory - Hematology and Cell countsOrdered By: Pj Isabel on 94-37-2429Jfutncps granulocytes/100 WBC (Bld)0.3 %0.0-0.5FBerger Hospital Laboratory - Microbiology and Antimicrobial susceptibilityOrdered By: Pj Isabel on 18-95-2113KSCZ-CoV-2 (COVID-19) RNA SHRUTI+probe Ql (Unsp spec)Negative NEGATIVEKettering Health Main CampusComment on above:This test has not been FDA [...] by Automated counOrdered By: Pj Isabel on 32-38-9295INF corrected for nucl RBC Auto (Bld) [#/Vol]13.3 10 3/uLHigh4.0-11.0[facility] Lymphocytes Auto (Bld) [#/Vol]Ordered By: Pj Isabel on 53-00-6180Cnfpzkybyfc (Bld) [#/Vol]1.4 10 3/uL1.2-3.8[facility] CampusLymphocytes/100 WBC Auto (Bld)Ordered By: Pj Isabel on 12-02-9782Qmrjfkoxslr/100 WBC (Bld) 10.8 %Low20.5-60.0[facility] HospitalH Auto (RBC) [Entitic mass] Ordered By: Pj Isabel on 49-96-7609CKP (RBC) [Entitic mass]29.2 pg25.9-34.0 [facility] CampusMCHC Auto (RBC) [Mass/Vol]Ordered By: Pj Isabel on 20-19-0268VSZN (RBC) [Mass/Vol]32.7 g/dL29.9-35.2FBerger HospitalMCV Auto (RBC) [Entitic vol]Ordered By: Pj Isabel on 46-82-6173ZFK (RBC) [Entitic vol]89.2 fL80.0-94.0[facility] CampusMonocytes Auto (Bld) [#/Vol]Ordered By: Pj Isabel on 03-20-2025 Monocytes (Bld) [#/Vol]0.8 10 3/uL0.3-0.8[facility] Monocytes/100 WBC Auto (Bld)Ordered By: Pj Isabel on 86-64-4266Emczgkxig/100 WBC (Bld)6.0 %1.7-12.0[facility] CampusNeutrophils Auto (Bld) [#/Vol]Ordered By: Pj Isabel on 16-46-8840Mjfbmdaizgl (Bld) [#/Vol]10.9 10 3/uLHigh1.4-6.5FBerger HospitalNeutrophils/100 WBC Auto (Bld) Ordered By: Pj Isabel on 52-46-0392Ktytcwdnzqp/100 WBC (Bld)81.5 %High 43.0-75.0[facility] CampusNo Panel InformationOrdered By: Ruben Coats on 37-36-7613Yglsghys I High Xkntdpfofgg17.0 pg/mLCritically high 4.0-76.1FBerger HospitalComment on above:RESULTS CALLED TO MISSY VILLATORO RN [...] OTHER DIAGNOSTIC AND CLINICAL INFORMATION.Phosphorus Level4.0 mg/dL2.6-4.7 [facility] CampusNo Panel InformationOrdered By: Pj Isabel on 14-68-8486Bxtupdk Influenza Type A AntigenNegativeKettering Health Main CampusComment on above:Negative for Flu A protein antigen. Infection due to Flu Acannot be ruled out. Flu A antigen in thesample may bebelow the detection limit of the test.Bedside Influenza Type B AntigenNegativeKettering Health Main CampusComment on above:Negative for Flu B protein antigen. Infection due to Flu Bcannot be ruled out. Flu B antigen in thesample may bebelow the detection limit of the test.Eosinophils # (Auto)0.2 10 3/uL0.0-0.7FBerger HospitalImmature Granulocyte # (Auto)0.04 10 3/uLHigh0.00-0.03[facility] CampusPlatelet mean volume Auto (Bld) [Entitic vol]Ordered By: Pj Isabel on 23-99-0774Lptbzorb mean volume (Bld) [Entitic vol]10.3 fL9.5-13.5 [facility] CampusPlatelets Auto (Bld) [#/Vol]Ordered By: Pj Isabel on 85-06-7967Xzmoiszzu (Bld) [#/Vol]415 10 3/jQ021-656SfemtbvrnKettering Health Main CampusRBC Auto (Bld) [#/Vol]Ordered By: Pj Isabel on 73-94-2940GFV (Bld) [#/Vol]5.18 10 6/uL4.70-6.10[facility] Southeast Ohioerum or plasma anion gap determinationOrdered By: Ruben Coats on 44-48-8164Ecyir gap [Moles/Vol]15.4 mmol/LFBucyrus Community Hospitalerum or plasma total cholesterol/high density lipoprotein (HDL) cholesterol mass ratOrdered By: Ruben Coats on 00-10-1446Uudclmylqai.total/Cholesterol in HDL [Mass ratio]3.6 {ratio}[facility] CampusComment on above:3.3 - 4.4 LOW RISK4.4 - 7.1 AVERAGE RISK7.1 - 11.0 MODERATE RISK>11.0 HIGH JIFZReW2i HPLC (Bld) [Mass fraction]Ordered By: Tomeka Rosado on 67-27-5691MeF6d (Bld) [Mass fraction]7.1 % [facility] CampusXR ANKLE LT MIN 3Von 89-63-9971Jhs[place], [place] [address] XRay Report Signed Patient: YUSEF CAR MR#: [id number] : 1950 Acct:[id number] Age/Sex: 74 / M ADM Date: 01/09/25 Loc: [facility] Attending Dr: Tomeka Rosado RN [employer] Ordering Physician: Tomeka Rosado NP Date of Service: 01/09/25 Procedure(s): XR ankle LT min 3V Accession Number(s): [id number] cc: Tomeka Rosado NP [place] [address] Patient Name: YUSEF CAR MRN: [id number] date: 1950 Sex: M Assigned Patient Location: [facility] Current Patient Location: RAD Accession/Order Number: [id number] Exam Date: 01/09/2025 10:50 Report Date: 01/09/2025 10:56 At the request of: TOMEKA ROSADO RN [employer] Procedure: XR ankle LT min 3V LEFT [...] Dudley M.D. 01/09/2025 10:56 AM Dictation Location: [place] [address] Electronically authenticated by: [id number] Y Date: 01/09/2025 10:56 Dictated By: Kisha Dudley M.D. Signed By: 01/09/25 1059 DD/ 1056 TD/TT: [employer] T[employer]:TBHRadiology, Radiologist, - 01/09/2025 [place] [address] XRay Report Signed Patient: YUSEF CAR MR#: [id number] : 1950 Acct:[id number] Age/Sex: 74 / M ADM Date: 01/09/25 Loc: RAD Attending Dr: Tomeka Rosado NP Ordering Physician: Tomeka Rosado NP Date of Service: 01/09/25 Procedure(s): XR ankle LT min 3V Accession Number(s): [id number] cc: Tomeka Rosado NP [place] [address] Patient Name: YUSEF CAR MRN: [facility]:[id number] date: 1950 Sex: M Assigned Patient Location: [facility] Current Patient Location: [facility] Accession/Order Number: [id number] Exam Date: 01/09/2025 10:50 Report Date: 01/09/2025 [...] Dudley M.D. 01/09/2025 10:56 AM Dictation Location: [place] [address] Electronically authenticated by: [id number] Y Date: 01/09/2025 10:56 Dictated By: Kisha Dudley M.D. Signed By: 01/09/25 1059 DD/ 1056 TD/TT: Beverage Inspection Machine Tender: [facility] NORTHEASTAgapito HealthcareRadiology Study observation (narrative)[facility] CenterXR ANKLE LT MIN 3VOrdered By: Radiologist Radiology on 89-83-7774XVLO [employer] Work Phone: MRI ABDOMEN W WO CONTRASTon 03-83-7915YBP ABDOMEN W WO CONTRASTRADRPT EXAM: MRI ABDOMEN [...] Signed by: Veronica Patel MD 12/17/24 Final resultNormalLima City Hospital & Creatinineon 12-08-2024 Creatinine [Mass/Vol]1.07 mg/dL0.66 - 1.25 mg/dLBarney Children'S Medical CenterMichael Sekou Boydt Rate72- PINFBarney Children'S Medical CenterComment on above: GFR calculated using CKD-EPI (2020) formula. Stage 1 Kidney damage (e.g., protein in the urine) with normal GFR >=90 Stage 2 Kidney damage with mild decrease in GFR 60-89 Stage 3a Moderate decrease in GFR 45-59 Stage 3b Moderate decrease in GFR 30-44 Stage 4 Severe reduction in GFR 15-29 Stage 5 Kidney failure <15 Interpretation and review of laboratory resultsAbnoMercy Health Willard Hospital Urea nitrogen (BldV) [Mass/Vol]24 mg/dLHigh9 - 20 mg/dLHolzer Health System AND CREATININEon 64-68-1501Kyfymrqtck [Mass/Vol] 1.07 mg/dLNormal0.66-1.25Barney Children'S Medical CenterComment on above:Performed By: #### BUNCRE #### [place] [address] Ph. [phone]/1.73 sq M.predicted among non-blacks MDRD (S/P/Bld) [Vol rate/Area]72 mL/min/{1.73_m2}Normal>60Barney Children'S Medical CenterComment on above: Result Comment: GFR calculated using CKD-EPI (2020) formula.\X0D0A\Stage 1 Kidney damage (e.g., protein in the urine) with normal GFR >=90\X0D0A\Stage 2 Kidney damage with mild decrease in GFR 60-89\X0D0A\Stage 3a Moderate decrease in GFR 45-59\X0D0A\Stage 3b Moderate decrease in GFR 30-44\X0D0A\Stage 4 Severe reduction in GFR 15-29\X0D0A\Stage 5 Kidney failure <15Performed By: #### BUNCRE #### [place] [address] Ph. [phone] nitrogen [Mass/Vol]24 mg/dLPocahontas Memorial Hospital[address] [employer] [address]Comment on above:Performed By: #### GURJIT #### [address] [address] Ph. [phone] Panel Informationon 89-28-6457SrlpajmGEMA Mccartney 11/30/2024 10:44 AM L Inj/Asp: L [...] neurovascular intact s/p injection. . ( Codes 06442) Procedure, treatment alternatives, risks and benefits explained, specific risks discussed. Consent was given by the patient. Patient was prepped and draped in the usual sterile fashion. [facility] Cultureon 59-02-4426Ggadpgar identified Cx Nom (U)No Growth 2 Days PERFORMED BY: [facility] [address] [place] [place] [id number] PATHOLOGIST MUNITIONS HANDLER SUPERVISOR ADE BELTRAN M.D.NormalBaptist Health Baptist Hospital Of Miami Physician GroupComment on above: Performed By: #### CUU #### [facility] [address] [place] [address] USAXR ABDOMEN 1Von 59-00-2288WafCleveland Clinic Fairview Hospital [address] [place] [address] XRay Report Signed Patient: YUSEF CAR MR#: [id number] : 1950 Acct:[id number] Age/Sex: 74 / M ADM Date: 11/28/24 Loc: LAB Attending Dr: Tomeka Rosado NP Ordering Physician: Tomeka Rosado NP Date of Service: 11/28/24 Procedure(s): XR abdomen 1V Accession Number(s): [id number] cc: Tomeka Rosado NP [address] [place] [id number] Patient Name: YUSEF CAR MRN: [facility]:[id number] date: 1950 Sex: M Assigned Patient Location: LAB Current Patient Location: LAB Accession/Order Number: [id number] Exam Date: 11/28/2024 16:16 Report Date: 11/28/2024 [...] Gallardo M.D. 11/28/2024 4:17 PM Dictation Location: [place] [address] Electronically authenticated by: [id number] Y Date: 11/28/2024 16:17 Dictated By: Jose A Gallardo M.D. Signed By: 11/28/24 1620 DD/ 1617 TD/TT: Beverage Inspection Machine Tender:TBHRadiology, Radiologist, - 11/28/[address] [address] XRay Report Signed Patient: YUSEF CAR MR#: [id number] : 1950 Acct:[id number] Age/Sex: 74 / M ADM Date: 11/28/24 Loc: LAB Attending Dr: Tomeka Rosado NP Ordering Physician: Tomeka Rosado NP Date of Service: 11/28/24 Procedure(s): XR abdomen 1V Accession Number(s): [id number] cc: Tomeka Rosado NP [place] [id number] Patient Name: YUSEF CAR MRN: [facility]:[id number] date: 1950 Sex: M Assigned Patient Location: LAB Current Patient Location: LAB Accession/Order Number: [id number] Exam Date: 11/28/2024 16:16 Report Date: 11/28/2024 [...] Gallardo M.D. 11/28/2024 4:17 PM Dictation Location: [place] [address] Electronically authenticated by: [id number] Y Date: 11/28/2024 16:17 Dictated By: Jose A Gallardo M.D. Signed By: 11/28/24 1620 DD/ 1617 TD/TT: Beverage Inspection Machine Tender: GAYE HealthcareRadiology Study observation (narrative)NOMS HealthcareXR ABDOMEN 1VOrdered By: Radiologist Radiology on 26-56-6626RP[facility] Work Phone: Orders Onlyon 53-03-7226Axtvks [id number] Yusef Car 1950 M Date Provider Department [place] 11/23/2024 [id number], HISTORICAL EZEQUIEL [facility] Family History Problem Relation Age of Onset Angina Mother Cancer Mother Heart attack Mother Heart failure Mother Hypertension Mother Cancer Father Diabetes type II Father Hypertension Father Cancer Sister Diabetes type II Sister Cancer Brother Diabetes type II Brother Hypertension Brother Cancer Brother Diabetes type II Brother Family Status - Relation Status Age at Mother Father Sister Brother BrotherNormalUniFulton County Health CenterOffice Visiton 70-45-7960Tketki-up [id number] Yusef Car Yissel 1950 M Date Provider Department [place] 11/22/2024 RashaunCheyenneNOE KNIGHT EZEQUIEL [facility]an [facility] Family History Problem Relation [...] Mother Father Sister Brother Brother Level of Service:[address] [place] OFFICE/OUTPATIENT ESTABLISHED [address] Reed StreetL Inj/Asp: L glenohumeralon 51-68-3628OscbcnaGEMA Mccartney 08/12/2024 9:19 AM L Inj/Asp: L [...] neurovascular intact s/p injection. . ( Codes 51014-ZQ) Procedure, treatment alternatives, risks and benefits explained, specific risks discussed. Consent was given by the patient. Patient was prepped and draped in the usual sterile fashion. [facility] Medical CenterHbA1c (Bld) [Mass fraction]Ordered By: Ruby Campbell on 27-32-2842Xohidtbpjzrplx and review of laboratory resultsAbnormal [facility] Medical CenterLaboratory - Hematology and Cell countsOrdered By: Ruby Campbell on 14-50-9034FgT5r (Bld) [Mass fraction]7.70 %[facility] Surgical pathology studyOrdered By: Olimpia Ware on 50-23-6635Mgqcanijrc comment Gui (Report) t4vbvRMaYCDoe7iwLASyyDJjCuVuBaJmAlJdGlkirKZyJSzetlEsBXsoi3GbH3RaOxRxVGxsccPnJLUq JimqavmyRZJjFNF2enNe ZFLhXGfdVCDpIXqdXd2iaKGwgYkkOuXwKLTxx6dklyOUWIwfXUGQYHq0n4blJKXwVfH9sSYaQUukD5jb pfYyvEHvC1Gxy5LaWRm9 qA62UHYlzX6wvMIeGTiotgKeNtK0GDvwWYOkWwI4VDSvwKDsDAIeC2myBLVtLHgiYGVnRRcenLKcNDR6 lEcob3I6rSLdaMCucSsm CwIiBaBxSeFFm3XuSBb3cJvbL6DvXLKeGbT2kCRzKTImDPycGAOgERFrvqU8qF01FFqlsfR2wCKgo4Cf r74ci757hR7wpZZgIOW7 GQBtDISmiPZeGLDpNZZ0OXAbdXTmW9qhUuGvvSXqO1KxHfZxlSVaJ2IvFhVamTMbQ3XqWtNbyQMzUXNy cDM0XMaxi125TFM0SiGk MA3zD9Tvt1S3lS5lnNNnCKWexXHuVeNoJSQrta1jjZBxJNinm4ZiWYD5cvT9mKAcrSSpRTAuAG50Gemg i4NgBdrcWLP6KTThztWn d8Oee0uvUeGxerWiO8mcZ0GpUANxQLViSYVlSiDmowZxq4Rvn4TjkZMgnJv9a4vwVHHlWNZxhCnex4mo RGR6NQDzV6Q5oCZsb6fp CJovCCLuiTN4nzT3JKyzUTOezwT0niI8VUovQCFqxOT9otT8UPdjJLPiYtZ2weG8DWpzLBBxUIW6HoRl SJWta2CjqssgVmPlv1Pc sDVsQNqhR61ou354KZEiehXhJ9ckzVPegdnclSRljokhHCsnjoJ5HLIeYJGbCCblMSRcFAEgDwChqICw ZzEwMzNcaGljaFxmMVxk TfXqIYOnFDdhS5kuGoMtQxPoTAOIjHY7sHNdp0bompE8uQXiDF3zQLCymUBkslMjz3H9CQL1wMJmjR9b qNVdLTWqwYXeftRjiu96 lSRglEJ9NCThEXXmyZWrsO3bILApMIWNkE8odAKOzhFqfbRaPURpiFrpdg1ZySHrot3lbWUnC9ImmMlk fNIfZYKwBTHyvHzyvKJjTMBhZSDidbdwd2ExXDZmhDSfN7DqZG6tCTMfvo34Ewglvucwzv [facility] Work Phone: Pathology report Cancer NarrativeSurgical Pathology Case: [id number] Authorizing Provider: Jeremiah Magaña MD Collected: 06/30/2024 0957 Ordering Location: [facility] Received: 06/30/2024 1055 Pathologist: Olimpia Ware MD Specimens: A) - DUODENAL BULB BIOPSY, Bx Scar B) - STOMACH ANTRUM BIOPSY, r/o H Pylori C) - STOMACH BODY/CORPUS POLYPECTOMY, Polyp Cardia [facility] Work Phone: Pathology report final diagnosis Narrative u0ajvBVwDEZzrCHyWLygJdjshbXjKACaoNWsY2MteproRQwdDL1tGO7mnWvxzXRldUOoHZJfOkBew6il t036gGUqj7fnEHTIxemf vKy3zRbbK79un4S4AzdwC5nqXTLoFUzwKBEyEVhsvGJtXCt3CCVknWJujpDaSeKpQQKpbYKvfZG5APDj GB8vurdlZUgtQEvwBPBy ztV6DIYgaOSdE7NfCWJiYP5vtdwxPNG4PBbgMXQpOIM7ZpMrJCZpf4Skgiy5WnTooLh1v4duDUJyODJc yDhzm4vwHIB9LTIurIGt T8pvrQ1gBATrCY5fqgozb5otDSxkHDtfOIXenXR2pwN8VOOqrRMxA2IljA0mIGHrNCKfkbGnvZdiyI3d YudyelSgMOCfLYBTZ7RX NeAQPWGEGVMyKYVCR1IPKEryAmNxJIzzBHItK62hzRcxUf31ORbloJKbr7VhLHjyiSeqle2mc0ftfxpt xPDpqdBuSYjcA96qb7Ai BfVcjXQxktP8oC7iNprgUOPadGRrVYTkYd2xP0RYSLJWSORHRwTNVR3yVdgGWZZDRryaETDkWQFipfNJ feYcUMsejMCvu7CmSDzu sMexLfIgwSMjBJStm6EvzbOsK2MtabToV2JkoLJtcHK9fCnxWPOnsmGDipHtu7MzaI9nw9kxEdJfuwgs SL7sJZIzNqJGMDuaE99p SGN8VQXroEqin6OrICcyr3Mua2GaWX1bn97wJmceDKDvlEUaWRDwYw0gL0WZWZUHYXVZR6IDM7FEQrET FoONS3lXRWATFC1UOLtk WrNlZKehSVQitYOrOZpdLnTqD4a8mfOaMkHeoJXpy9Icx8u5uUXzHKP8mHXllmBpo62vnNX6GZ77WNbv iJiyHeRaQVqsLTqnEQ7wOGHtnOtpViilQQTpjYKmyD==Xqejqcypge [facility] Work Phone: Pathology report gross observation Narrative s0whiQXpKHVlwCMHPKC6OGIcUR8ymHbaoBt3mNnpNXIpfuT3lAApUCesx9jcTKC3j0cnakLHHyueTNYc XL4nRZiyNDTqIK5aYcOn UJEaMgBoMXYshHZhbhLwGrAcAOJgbRIjkPH7WXIxGQ7kdgkiIVtpKIyzGAEksoF7HIDhsWGeE2OhGJOi DL7hbrmzNVU3YLWDNcqr Vc0zwACmnICXQitaOrWfFkKpJPMyVIPmFWVjj8zcejWWNRqkZFKUDIy7JQi3KMUyGIPwlCOuy7E1AFmu o5fvi5UkUNAlZXz3tL1E BmwhWLC7QZMETiwpJhomnBxlq9HgwRJfGWTuNZqnbATjJZFqFBOrAFibGrUVLuNbWrOiDnB2JSU4EpAq HFe3ECrqIfYLGRDvDKU3 ZCqvVQa2NJhjGXcnqFWtZYQrPMDeYCHvIEoqmyG2c0ftQITlkFXnRTM9EGaxs2neSMgeRUD7COCfRxKk QAFbPY7YGdJzHBWhMaT5 VIe1HcQ4BPg5RGDCEhTaUhKjDPJ0ZoV8MpOaQXx9HEx8BLgDWyCzDfl8Xrp6XjF5CIQ9HtJnTLkdntzh DHq1FKQjZRwyxvYeHCpc IqqhFHqgW34xtXSkCZMIFwmbvDFkihgknMjeByBweGTfXeWzJZyyhHXpfZXpEF2RMFr8hxNyALVrWLOl MoVkATjwITNiB1LsrhOi OFbhTJKyhf4lvDaeYCNlRQHrfYHtHAdggYtdkKxjSTRbxIdmcdGlskCcLM3wOXAhSOOwl4IfjAMilHCg gZ4gGVWxNE5uTEHqMAQr mN5vQI2nyOYdsRnnYJM7PUIyXEVzZdicNTFtmgHrpPFgtCvlsFHgDhXuB20vysMaJQ3vWQApmnEvj5F8 KNHrp1G5YVOwS1hhPZpo tNjeQzO0uvYmCvLbiYWgHaWnzNWbWrAeU50lRGRwWEQhqNSrjN4zmmMqsdWgyHFnrFN2FQOnmT7edK08 plCbpdQnQHPnw2IkxCBh AkqjLYIaVHnop5KdYJkecXygRJSrMnUxUNjHJF2DUwGnSH8DYRMxqVZMZMF7ZE0dMWjhHYPdF4EaC2Qv pbC8QVWhyvGQVazbRqus vLnax6SmeOOgBGBeLYblpMJcKWVsVGKuDSlrWgPVEzWiJhTtNdA4WRD3YtTiHCy6ZVwqU8OYNOWzRKN3 FnPjMzGoNkZ1ZXk9AOXB Ur5dDEP1WWp0CCMaJYS3QHMsGXTfFA6sVKazfRKdPQbjx1UoAnChAZFsRSwulbC5EOYunjAoFPuoxRzw lV7vNYLcL48hx6TLh2Hm EL4UNTq1isKdyhajIgLsXLgbqLuoXEGiSKQ7QR1VIAh8qaHdDLLnSOZgXrMnOiwfUcKgXAr9IQEplF5c Qq2opGBbiQ3bIVmjUcJo UTQlm8m1lRE7fYLicLQ2fTAzaNikPE1rfYAmQJ7kVUybe1EvbLJoWI52aNQkxtWnsfHeHfRkj9SdlXWd qQRpbaVubZ5uKknoYINc nzXEGAJ4rE6nrEtplGJgPNRkjkBzxNDpuRAfUcT9BG8ve95ozKZ7bJSvyVVafLYaf1DqjO5xIFAhQiO1 ILJoTjX1GCYdRrIgyE2z DIbaNEWyCMBodMThFKgvUDC7Nn5poHZqIWPdcuR6e1OuWTrlKJKsW0Qnl4F0eIXiBGKfmoDMHcokGUCr UJz3pjObhpuwWHHrHJPc oUHEe0ZcIILZNbjEJ1AWOiNfKKkmHZZkD74il7WRc9Ggl3nrhDrkd3OwvMRhDO1siDCpKZ0Iz1uoAGSt xLTyPFA7IHjld1uqUCwm HLE2GHVzFiAxOSLcEM6BVmNaHVUwGwO7GPp5WcA5DSj7KEYHXlUkCoUxWRH6YpA1GJYlNNt5UVy8AOaN MeBbBvq5Qae2RIC8LDB7 DoLnPZmyuzzuCHr6JLVuZCgpxmUjBXpcYbmkMXpfO30wfGOjTWJKQnajdSPxsymkuXneFwIbaKNiZyJg DQpcbHRycGFyXHNiMTM1 LWGzmBPTc5VyUjDbWJhudCEeJ2rcUlFbQbQpDLBBRnDOXTGymCKpAKYmiiYdi2FdKQbnihaolNYiRTch PHA2bCXpBSSwCZWdHGKl DI55Y9UggiYdKULixxLqjZ5zzSo0XRmxcgVwKqSfSCUjLCKzQmomxD4uFSEhNNTwdOkbTRIdl4o0mGEm YXJkaWEiLCBpcyBhIGZy PXllPS89AM2lHNHwjdKkw3C3VDItx6J2KNAmFDLvuUTcxjfbAF05VCfgIE9wBAddOP0zCQIqAwSHjRYs z3ExE2mhFY5xzRYgq9Fi cSk4fHPqYIecKYWxlM3xjE2eVFGaLAMwIFN9KH8tqRBrJF5OYNNxooMxaHHsyPKfTSMyKrWjEJTlX7cb XWEoQS8DD3TzX7QDTFNC XmaohHrsMgEjwRAwHwV7MZCtxIXvZUQ9EV2bzQlrUEJaU7QrI9JyqrL7PKCtagRHIphrCIPnNJ9LDRBt ZYgvUK9AwG==ZszdlukusiMemorial Health System [facility] Work Phone: Pathology report relevant history Narrative g9dslBWmZDQsgNTkPVahXhyppxGuGHHdtKVrB4VjfzrdWJihMC9fJN2vxHsowHViyMUgVOQsEmHff7gk o241mNPjs9tyFIUMtwna vBg0sTboZ28gu9I9AcozK8mmJOGcDFyxRIFqBFxsyCCkJAa1XCHjvQEzzqBvQcVbLVHepDYapCA8NIOi TK2thotgRKvgVCicHRFx qrL0PPDyvBKiN6IqKWPkDM4imogyMDU6LVpnTICdIYX6MqWvPXFfw5Sucvu9PdUxoJHuORuvpVObawjq czIwXGNmMSBQcmltYXJ5 GG5lnEakfnUkwNLxMUGdx7GhOT3nzjamQESaIN3lgNJgrVZfSvKscT2tLI27iTPcQISbsLwbQJeDO4Wx EZ3eK3QlCCEmuPXtWAWdzcBJToJEyTjpWQ63dDFZFtN9dP4ejGrmOIK8Pvoejoefex [facility] Work Phone: [facility] Work Phone: [phone] [phone]'s called and said he had an EGD today at in [place]. Before the EGD was completed, she said [...] this along to Dr. Knight for further recommendations.NormalSheltering Arms HospitalEGD on 17-35-5460VpjdgnmoiigjptadusnsndfyhcNkdol formatting from the original result was not [...] EXAM Grace Patricia 06/30/2024 1001 Procedure Location [facility] [address] [facility] [address] Referring Provider Jeremiah Magaña MD Procedure Provider Jeremiah Magaña MDNoCorey HospitalEG Study observation Narrativeon 10-96-3832Fwdve formatting from the original result was not [...] EXAM Grace Patricia 06/30/2024 1001 Procedure Location [facility] [address] [place] [id number] Referring Provider Jeremiah Magaña MD Procedure Provider Jeremiah Magaña MD [facility] Work Phone: UnAshtab[facility] Work Phone: Radiology Study observation (narrative)[facility] Work Phone: Glucose Test strip manual (Bld) [Mass/Vol]on 31-56-2567Cpncpqh [Mass/Vol]193 mg/uZGmkt03 - 99 mg/dLMemorial Health System Selby General HospitalInterpretation and review of laboratory resultsAbnormalUniCherrington HospitalUnAshtabula General HospitalGlucose [Mass/Vol]193 mg/lNSwbi23-22BjunadurewRiverview Health InstituteComment on above: Performed By: #### 2341-6 #### OLIMPIA WARE ([id number]) [facility] ([facility]) [address] [place] [address]Caiusafo pathology studyon 19-78-5008Bbstxeod pathology study Pathology report.total SEE COMMENT Surgical Pathology Case: [id number] Authorizing Provider: Jeremiah Magaña MD Collected: 06/30/2024 0957 Ordering Location: [facility] Received: 06/30/2024 1055 Pathologist: Olimpia Ware MD [...] is submitted in toto in 1 cassette. /SBSMercy Health Allen HospitalTelephoneon 06-30-2024 [id number] Yusef Car 1950 M Date Provider Department Center 06/30/2024 Paulette-MARIA GUADALUPE NARAYAN EZEQUIEL Narayanan [facility] Family History Problem Relation Age of Onset Angina Mother Cancer Mother Heart attack Mother Heart failure Mother Hypertension Mother Cancer Father Diabetes type II Father Hypertension Father Cancer Sister Diabetes type II Sister Cancer Brother Diabetes type II Brother Hypertension Brother Cancer Brother Diabetes type II Brother Family Status - Relation Status Age at Mother Father Sister Brother BrotherNormalUniversChillicothe Hospital GLUCOSE-POCTon 91-14-5473Njgsaam [Mass/Vol]193 mg/lVRuzd53 - 99 mg/dLNOMS Healthcare Interpretation and review of laboratory resultsAbnormalNOMS HealthcareOriginal Ordering Provider: JEREMIAH ROCA HealthcareOffice Visiton 05-31-2024 Follow-up [id number] Yuesf Car 1950 M Date Provider Department Center 05/31/2024 HANNA NOE EZEQUIEL [facility] Family History Problem Relation Age of Onset Angina Mother Cancer Mother Heart attack Mother Heart failure Mother Hypertension Mother Cancer Father Diabetes type II Father Hypertension Father Cancer Sister Diabetes type II Sister Cancer Brother Diabetes type II Brother Hypertension Brother Cancer Brother Diabetes type II Brother Family Status - Relation Status Age at Mother Father Sister Brother Brother Level of Service:02981 [place] OFFICE/OUTPATIENT ESTABLISHED LOW MDM 20 [facility] HealthALL CBC WITH AUTO DIFFon 66-14-7013LWDXBHQQX ABSOLUTE UOBH7THJG HealthcareBasophils/100 WBC (Bld)0.1 %Low0.2 - 2.0 %NOMS HealthcareEosinophils/100 WBC (Bld)0.1 %Low0.9 - 7.0 %NOMKindred HospitalErythrocyte distribution width (RBC) [Ratio]16.1 %High11.0 - 15.0 %[facility] Hematocrit (Bld) [Volume fraction]44.8 %42.0 - 54.0 %[facility] CenterHemoglobin (Bld) [Mass/Vol]14.3 g/dL14.0 - 18.0 g/dLNOResearch Belton HospitalIMMATURE GRANULOCYTES ABS AUTO0.04HighNOWA HealthcareImmature granulocytes/100 WBC (Bld)0.3 %0.0 - 0.5 %[facility] CenterInterpretation and review of laboratory resultsAbnormalNOWA HealthcareLYMPHOCYTES ABSOLUTE AUTO1.2NOMS HealthcareLymphocytes/100 WBC (Bld) 8.8 %Low20.5 - 60.0 %[facility] HospitalH (RBC) [Entitic mass]28.1 pg25.9 - 34.0 pgNORanken Jordan Pediatric Specialty HospitalHC (RBC) [Mass/Vol]31.9 g/dL29.9 - 35.2 g/dLSoutheast [facility] MCV (RBC) [Entitic vol]88 fL80.0 - 94.0 fLNOResearch Belton HospitalMONOCYTES ABSOLUTE AUTO 0.7NOMS HealthcareMonocytes/100 WBC (Bld)4.9 %1.7 - 12.0 %[facility]OM [facility] NEUTROPHILS ABSOLUTE AUTO11.6HighNOWA HealthcareNeutrophils/100 WBC (Bld)85.8 % High43.0 - 75.0 %NOMS HealthcarePlatelet mean volume (Bld) [Entitic vol]10 fL9.5 - 13.5 fLSoutheast Missouri Community Treatment CenterTB EO #0NOMS [facility] Hospital For RehabilitationTB DCK978MQCMHedrick Medical Center RBC 5.09NOHedrick Medical Center WBC13.5HighSoutheast [facility] Community Treatment CenterCLINISYNCNINTEGRIS HEALTH [facility] HealthcareNo Panel Informationon 42-95-1163AkmmecyGEMA Mccartney 04/13/2024 12:25 PM L Inj/Asp: L subacromial bursa on 04/13/2024 9:47 AM Indications: pain Details: 21 G needle, posterior approach Medications: 40 mg methylPREDNISolone acetate 40 MG/ML; 1 mL bupivacaine PF 0.5 % Outcome: tolerated well, no immediate complications Utilizing aseptic technique with universal precautions . Pt given injection Left Shoulder SA space ( code 22060 LT) Procedure, treatment alternatives, risks and benefits explained, specific risks discussed. Consent was given by the patient. Patient was prepped and draped in the usual sterile fashion. [facility] CenterXR Shoulder - left 2 Viewson 68-33-3089Jbrybsl Result: AP and Scap Y left shoulder: No acute fracture or dislocation. Mild subchondral sclerosis to humeral head and inferior leon spurring. Degenerative changes noted to subacromial space consider with likely cuff arthropathy/ chronic cuff tear Metallic anchor humeral head without dislodgment.. Visualized lung dahl clear. Impression: Moderate shoulder arthritis concerning for rotator cuff arthropathyAtrium Health Wake Forest Baptist High Point Medical CenterRadiology Study observation (narrative) [facility] CenterMLR HEMOGLOBIN A1Con 47-41-5674Xzxsufn [Mass/Vol]151 mg/dLSoutheast Missouri Community Treatment CenterHbA1c (Bld) [Mass fraction]6.9 %High4.5 - 6.2 %[facility] CenterComment on above:ADA RECOMMENDED LIMIT 4.0 - 6.0 ADA THERAPEUTIC TARGET < 7.0 ACTION SUGGESTED > 7.0 Interpretation and review of laboratory resultsAbCritical access hospitalrgical pathology studyOrdered By: Spike Massey on 01-05-2024 Laboratory comment Gui (Report) v6pciSJzRHEgi1kbARJszHYrOgKaJfOoLiIoQcktuGKyNUnyxhGtUDnfw5OyO8JwExXjVZkvnhAdCBAv JnveyebcSAEqTEF1unEu IVRuKFggSMHwRJoaKk7eoSDzaArhKlLgAPIfw1vlsoKICCloEVBKGAf8w3ybWHUnFxF9hKQbFFrmN2hy fdGrvDMtE4Syd2MjWPh0 vA90BWSreA1gcXJmJEsvbrSgRjV3KZetKVCnZlX2DTPorLGyRNVtV6vdLVDeKOwoWARhSSiecXTlAUJ9 hTyvo5V1iVLnpTFulTnl EpMwHnJgJmDMo0QxJTb1hIjpU5KpBDEjQsI1uRYaNNJcVLjkITSnPVNhzvK2fO20HVqpklK0aFSyk5Qd t25cn965aN9ikJLgYDS2 EANjRPYetGKtBBNnGLE6ODQqlPZrE9gqSxFhnJGjH3HxOmItwTGvZ6TmVhSupURjF7PhOkWnnQMxQAOd mNE5HButu285EBZ0ObKv EY0cE9Oii9S2sE7xnRMoWXCuvOReQiQiBAWgio2piKNeUFsry1OmGWG8rxJ1tGCpcSVyZCXaXH42Ratt e8TeXzktCAR6PPYyouSg u8Usm6teKhJepwHcY5veT3BhMXPiUYRtMDWhLnDcmlRrb0Kih0PqePVpvIq4g6foLZPaXOMbhNrsk7ly ICZ4NZZvO2C1mZSnb7sv EMshLNTupBP6lxL3PTvsZGPbwjP1ywY3GIwrLCLztHP4hbA6SVpePUYbEiF8gpE7FPjoFUQpLEN5XlOo FYMdb7MozppbJuOfq4Bw hDMkDJvmP02yc827DPPagiYzE3neoOFgxpinoRUilyrpUMikfeG4FHRkGORcDWcfISSmHFHmHlJasJLg ZzEwMzNcaGljaFxmMVxk GhBxWTOdSRdvR8ysRzRlRyIvQWDPeFU3bGTnf6xxndM0zNEfFF6bYWSwaORypcKoy2M3GSI1mLOovL1x oMBlAVNthZWoscDcpp71 eWYnqPO0ADKbWURshNOyeZ8yBZPoQGHIwG7enOGCzxXiyvUrGOLwpEuhml2DbCHotn5gfXYxX1TgqUws eHFuQLBcKORmdKelaSKtUUCxOHEvcpqva6UvPWClpJAoE0KrPL5rWADwbc73Qxwnmhtfml [facility] Work Phone: Pathology report Cancer NarrativeSurgical Pathology Case: [id number] Authorizing Provider: Jeremiah Magaña MD Collected: 12/29/2023 1332 Ordering Location: [facility] Received: 12/29/2023 1429 Pathologist: Spike Massey MD Specimens: A) - DUODENAL BULB BIOPSY B) - STOMACH ANTRUM BIOPSY, r/o [facility] Work Phone: Pathology report final diagnosis Narrative x5rnhCQzSWOwrONsEUlmYvmcfkLnEAChsPTzW2DsjjijLBjeNR4bRF8crIlykPCkoVApONHqAjIfs7qc f618wXKfa4mvVSRLxnun yPb4iWbmQ75hb5Q7TlumZ8leJIYnFPitGFZzYVyuwSTbNOt2SXCzyDYjwzDxCzGdOYKcdMEfcQY3IHRp CI3tddgsZJosMWroRBFm uuX4NDUasSRsF0BoGPUzYO2bfwimDUR5ZSwdLWFiCHI8TlFlSDDmf3Xbbga7YuJonQz9v2hkTOAyEYCy xOpye2waYYE8EAGdjXTb A7kjiN5zJTQoFG7vjqzzm2ilEXhlNNsaRWHytEM8qcV5HJCueHGyD0KgsG9aHVAvWWGfqnGbqNjkuC0y OidvwdOcWHPlGTERU6UK MrSSPODUIYWdAZFMU7ZCMBxfN33LLHoyBX0CKGZOCC5XIBEVMKKHH6HcR9xBAOCGZTiMKYGFCVbQFDUW JB5UJB9LGAeGZMZJGIAq Hy5ZUK3vrARzLWVlcmSHo0CgLnLRfCmuHNYotpYfrezevIDeya8gt6BhC9nvdJFlvV6xmlU3jLFfOGZt ZCBtYXkgYmUgcmVsYXRl GWE7xgVfUVCaO9I2jQ4bCVClDnNhaOgauhAbr7nfGKZnAIUmNEvaiRXau54ohKOxt0ffBFebCW53xQ8k udIlCA8uTFQivzzmOTH7 P2HjPI7kNUliX8luQFYbWFLrdBKiqDUziR1qwLYhbZzumPdybo8axXAvZYAcvlYMJrIDDY6QMHQTTQYS NFGETIMYYW4WQ7r8QPRR YMSPBLASBOsGN1NEZ1XNECmEUPoSPPagZZUWWFNUFGwGMqpLYQ1PVApOFcpdV7CTDR3OMFHtVMZhhznw DRTaSu06XVagYw7bjNqviu6mgnaqdkzswDEhLMHpYEjlEK59xSRvOPDyYFReRTLkJAHyGQJxxd3= [facility] Work Phone: Pathology report gross observation Narrative j8xeiFTkRGAqjGMONNV9UQWoGD7rzFzztOq7iLvfEEUyqfN3oMLdRFkyb9ctQHF1d2evbxNVSugdTCDn VX1dWRmkHPOuEJ0aFfAj JJBjBePaBDYwuQEvbsLjXnKrJGCbzEObuJT5VXPmLB9xtpssYQdyNFhqOTPbagP3KAMqhEJxK2ZjZUBq MM3chczbTNI7GIARFoqg Wd7mbYItxALUSxdcLrKfYoFeKKWjEIQlHPZsn3pfxhPGYQvzNUZSTSg6HIt3XSRdDIBdgJYoh0K8SJnw d1dby0SkBKKkBOd6hF6B BtnrINB2PWGPQxkmDflweIaxd5ObiLCzMDMiGMojmWWqDAYsRJNzCYibXkEGEpJkIuSiJBF1Fby8QyMm SYm2UQvwDcMQZUA6QQI1 MLTbMJz9ZKvnRTeypCSoWHFqLHFrZEKqSNestnQ8m4akEXDlsXOdINJ0UHype8irXXooUCK8WBJwVmVu BXDjLO2JIgPjHUD7OUZt Udk5YkN3TEe6OSAHOoPuGvFaFBH8BRv2MIDrZPl9OGu0JUoBVeK9UrsqWLThZYCjAYZ7TLPrOUuwlHBk XHQgMiBcXHNzIDMgXFxm uAWeFK7krHbqPCJbEF2GOIFnKGhcOOBpdCRORWO6BI3bLZCZDhodqPPdDHSrRBpdbEYlP4nkNxKnOdPg MCBBOiBSZWNlaXZlZCBp ytAsn9IgXQhnejltqAZbYMiaWMJ1jGCxYXWyTJWwNVRnQS03U9SsvtVjIUXvnhHizJ1uoUn8HSynyiFx YmVyIGFuZCAiMSIsIGlz FOMdSoBoI22mjsZrf9DefLTsTWAyi8D1GOTwn9Y9XUCeOOMsaQGumgksSU29ALrtCY6jGPsrLW3zRHMc LiAgVGhlIHNwZWNpbWVu MTytEQU3Sx4wlFJgTRPywzW2f1ZaYNekYT9lIBTpRUHeFVT0CL9tsKGzXC6TULPzXkXqEVNgE5lwIZTi SC1XFyUANKozOBOpZ10e e2QVr2Dfw5wkkPnay1IqaBTsRJ6enMEoQP2Ul0zyFTCuiJOtOYG4CDruf4vjRUilQLV5DGYoEuZjWVEz RS0RSjCyYZT3SVMbWpg3 HiO2QPt1XVZWYaAnYnKnMQQ8DPb2UHXqPGd7YNd1LBnBAfC0GdvdUOWfAlIkIPO3ENWzMDejbYBaXOPq MiBcXHNzIDMgXFxmbCBc MM6kiAleFVYmSJ3FJACfOTdpJYGmsHQTCUY5FD0zLWDVEjcnjHFoWTXix5NyMyAxULWiY6scWhWkOYYD ClxsdHJjaFxmMlxmczIw GCT7AZXiH8XdasXaEVsyEHUqpz4yeFcyQURvABJaxVAsRNcimAvslXddTLYoeFbzutFzyqHqOE6sDOWd EKSym1YbtSSxkXZkgP5f COTeDA6zKWCnUzgjBRVvTK46zTNcjWcuDHPjTBpzSO26iyTzAfW1WD7fFOFhNrDqyOjvh6KmAZSnL6Qx O6W2dC6iRGZwRKJwGyW9 ULVaXWQ9RFDxIWClvA2uVBvpGPRpJNHcsZCqNYjbFZS9Hs6pvQLzNDTxjjJ4d9CwFHvkOK7bGSWjQBMp QFO2UL7mpBOeQU1FYLYo seJllSLfaJXnZSKkYyJuIDWdD1pcQFDwVD2OFcVXWIwsFABcC17zi4YGt0Ntr0wlrNfqp6EthQWgYW47 RGBptEIhNLR9HN5wmGhoEEQtTBwjfNBwEEASAqicpVSwhdUAHs9=[facility] Work Phone: Pathology report relevant history Narrative t5tjrRPyFYHykBXsDFajYkbsuoNmPZKdqQCeF2NzoiowIVatUF4aMS5maDuegPFqqPDrBDWuNaWju2ym i362gPTyb4hvVJAIggij qYg3kJmmM51ow8X8QbvoK36lmBMpASY7ECXqZQOekJXwKBVoHDZ2MUNqkZTcO2vqBDDmFW8qgxreHOkt KSgoCLHztRC4NKJgmCVh F8HqKFZdNYyrBZYhenj9ZfGfCs1ghONjaSynDOacXGVrHAEbJOinJFTuJfWlRjggJjQsFDLfkVWeLT1I eWxvcmkgXHBhcn0=[facility] Work Phone: [facility] Work Phone: CT Chest W contrast Kristie 01-01-2024 Interpreted By: Lul Carver and Maltbie Grace STUDY: CT CHEST W IV CONTRAST; 12/31/2023 7:55 am INDICATION: Signs/Symptoms:LUNG NODULE. COMPARISON: CT chest abdomen pelvis 05/26/2023 ACCESSION NUMBER(S): [id number] ORDERING CLINICIAN: NEFTALI KNOWLES TECHNIQUE: Helical data [...] Morales MD. This study was interpreted at [place], [place]. Signed by: Lul Carver 01/01/2024 9:17 PM Dictation workstation: [id number], Radiologist, - 01/01/2024 Interpreted By: Lul Carver and Maltbie Grace STUDY: CT CHEST W IV CONTRAST; 12/31/2023 7:55 am INDICATION: Signs/Symptoms:LUNG NODULE. COMPARISON: CT chest abdomen pelvis 05/26/2023 ACCESSION NUMBER(S): [id number] ORDERING CLINICIAN: NEFTALI KNOWLES TECHNIQUE: Helical data [...] Morales MD. This study was interpreted at [place], [place]. Signed by: Lul Carver 01/01/2024 9:17 PM Dictation workstation: [id number] [facility] NORTHEASTRightCare SolutionsHI Chest W contrast IVOrdered By: Radiologist Radiology on 43-56-3821UXTB [employer] Work Phone: ct CHEST W IV CONTRASTon 60-99-5385PS CHEST W IV CONTRASTInterpreted By: Lul Carver and Maltbie Grace STUDY: CT CHEST W IV CONTRAST; 12/31/2023 7:55 am INDICATION: Signs/Symptoms:LUNG NODULE. COMPARISON: CT chest abdomen pelvis 05/26/2023 ACCESSION NUMBER(S): [id number] ORDERING CLINICIAN: NEFTALI KNOWLES TECHNIQUE: Helical data [...] Morales MD. This study was interpreted at [place], [place]. Signed by: Lul Carver 01/01/2024 9:17 PM Dictation workstation: [id number] HospitalCT Chest W contrast Kristie 16-28-6263Sckojdgiu Study observation (narrative) [facility] 11-58-8992PczrqhwtdpchjkixrjeebbmypjLlozl formatting from the original result was not [...] EXAM Grace Patricia 12/29/2023 1334 Procedure Location [facility] [address] [place] [phone] Referring Provider Jeremiah Magaña MD Procedure Provider Jeremiah Magaña MDNoalUMercy Health Lorain HospitalEG Study observation Narrativeon 50-04-0501Trzco formatting from the original result was not [...] EXAM Grace Patricia 12/29/2023 1334 Procedure Location [facility] [address] [place] [phone] Referring Provider Jeremiah Magaña MD Procedure Provider Jeremiah Magaña MD [facility] Work Phone: [facility] Work Phone: Radiology Study observation (narrative)[facility] Work Phone: Glucose Test strip manual (Bld) [Mass/Vol]on 80-85-1701Pzhnlud [Mass/Vol]147 mg/jEImen27 - 99 mg/dLUnAshtabula General HospitalInterpretation and review of laboratory resultsAbnormalUniCherrington HospitalUnAshtabula General HospitalGlucose [Mass/Vol]147 mg/vOIbfo07-20WykzvctvmrRiverview Health InstituteComment on above: Performed By: #### 2341-6 #### OLIMPIA WARE ([id number]) [facility] ([facility]) [address] [place] [address]Bocsppha pathology studyon 72-21-5244Baeioufk pathology study Pathology report.total SEE COMMENT Surgical Pathology Case: [id number] Authorizing Provider: Jeremiah Magaña MD Collected: 12/29/2023 1332 Ordering Location: [facility] Received: 12/29/2023 1429 Pathologist: Spike Massey MD [...] is submitted in toto in one cassette. [facility] HOSPITALNormalUMercy Health Lorain HospitalCB W Auto Differential panel (Bld)on 65-55-9262Zphybdbfn (Bld) [#/Vol]0.04 x10*3/uLNormal0.00-0.10 [facility] CenterComment on above:Performed By: #### 68932-4 #### OLIMPIA WARE ([id number]) [facility] ([facility]) [address] [place], [place] [address]Wrthbeljn/100 WBC (Bld)0.4 %Normal0.0-2.0UnClermont County HospitalComment on above:Performed By: #### 17344-4 #### OLIMPIA WARE ([id number]) [facility] ([facility]) [address] [place], [place] [address]Xvfzibhvosz (Bld) [#/Vol]0.18 x10*3/uLNormal0.00-0.40 [facility] Medical CenterComment on above:Performed By: #### 81376-9 #### OLIMPIA WARE ([id number]) [facility] ([facility]) [address] [place], [place] [address]Hpxfzoilhlb/100 WBC (Bld)1.9 %Normal0.0-6.0UnClermont County HospitalComment on above:Performed By: #### 86818-3 #### OLIMPIA WARE ([id number]) [facility] ([facility]) [address] [place], [place] [address]Wmjachxuonm distribution width (RBC) [Ratio]16.3 %High 11.5-14.5UnClermont County HospitalComment on above:Performed By: #### 79871-7 #### OLMIPIA WARE ([id number]) [facility] ([facility]) [address] [place], [place] [address]Dpjubshkah (Bld) [Volume fraction]43.0 %Qrdmlv71.0-52.0 [facility] Medical CenterComment on above:Performed By: #### 38154-3 #### OLIMPIA WARE ([id number]) [facility] ([facility]) [address] [place], [place] [address]Fqorrfeqqo (Bld) [Mass/Vol]13.4 g/dLLow13.5-17.5UnClermont County HospitalComment on above:Performed By: #### 84768-0 #### OLIMPIA WARE (38607) [facility] ([facility]) [address] [place], [place] [address]Wbemwkka granulocytes (Bld) [#/Vol]0.03 x10*3/uLNormal 0.00-0.50UnClermont County HospitalComment on above:Performed By: #### 43392-7 #### OLIMPIA WARE ([id number]) [facility] ([facility]) [address] [place], [place] [address]Rdvzzggj granulocytes/100 WBC (Bld)0.3 %Normal0.0-0.9 [facility] Medical CenterComment on above:Result Comment: Immature Granulocyte Count (IG) includes promyelocytes, myelocytes and metamyelocytes but does not include bands. Percent differential counts (%) should be interpreted in the context of the absolute cell counts (cells/UL). Performed By: #### 39103-8 #### OLIMPIA WARE ([id number]) [facility] ([facility]) [address] [place], [place] [address]Nkqrjcqzsec (Bld) [#/Vol]1.72 x10*3/uLNormal0.80-3.00 [facility] Medical CenterComment on above:Performed By: #### 63830-3 #### OLIMPIA WARE ([id number]) [facility] ([facility]) [address] [place], [place] [address]Uucffxrudqs/100 WBC (Bld)18.0 %Rrrhan94.0-44.0UnClermont County HospitalComment on above:Performed By: #### 44549-4 #### OLIMPIA WARE ([id number]) [facility] ([facility]) [address] [place], [place] [address]NMM (RBC) [Entitic mass]27.8 toEldpds19.0-34.0UnClermont County HospitalComment on above:Performed By: #### 49636-1 #### OLIMPIA WARE (19313) [facility] ([facility]) [address] [place], [place] [address]XANX (RBC) [Mass/Vol]31.2 g/dLLow32.0-36.0UnClermont County HospitalComment on above:Performed By: #### 52067-5 #### OLIMPIA WARE (38895) [facility] ([facility]) [address] [place], [place] [address]HLB (RBC) [Entitic vol]89 bQFbkooz69-449MpwhgezahsClermont County HospitalComment on above:Performed By: #### 93959-5 #### OLIMPIA WARE (61608) [facility] ([facility]) [address] [place], [place] [address]Fgllceuft (Bld) [#/Vol]0.75 x10*3/uLNormal0.05-0.80UnClermont County HospitalComment on above:Performed By: #### 25791-8 #### OLIMPIA WARE (14911) [facility] ([facility]) [address] [place], [place] [address]Cmlihwkwi/100 WBC (Bld)7.9 %Normal2.0-10.0UnClermont County HospitalComment on above:Performed By: #### 01156-1 #### OLIMPIA WARE (85335) [facility] ([facility]) [address] [place] [address]Bivyjexjgaz (Bld) [#/Vol]6.83 x10*3/uLHigh1.60-5.50UnClermont County HospitalComment on above:Result Comment: Percent differential counts (%) should be interpreted in the context of the absolute cell counts (cells/uL).Performed By: #### 70051-6 #### OLIMPIA WARE (79358) [facility] ([facility]) [address] [place] [address]Zdtjfjptxbc/100 WBC (Bld)71.5 %Zyulpm21.0-80.0[facility] Medical CenterComment on above:Performed By: #### 08764-1 #### OLIMPIA WARE (00036) [facility] ([facility]) [address] [place] [address]Sgygxywxx RBC/100 WBC (Bld) [Ratio]0.0 /100 WBCsNormal0.0-0.0 [facility] Medical CenterComment on above:Performed By: #### 85036-9 #### OLIMPIA WARE (10588) [facility] ([facility]) [address] [place] [address]Fjbkjwwte (Bld) [#/Vol]365 x10*3/hTOolsek025-184FidvwbvxmeClermont County HospitalComment on above:Performed By: #### 45035-3 #### OLIMPIA WARE (35699) [facility] ([facility]) [address] [place] [address]JBI (Bld) [#/Vol]4.82 x10*6/uLNormal4.50-5.90UnClermont County HospitalComment on above:Performed By: #### 30122-2 ###Aubree WARE (78309) [facility] ([facility]) [address] [place], [place] [address]ICT (Bld) [#/Vol]9.6 x10*3/uLNormal4.4-11.3[facility] Medical CenterComment on above:Performed By: #### 64245-9 #### OLIMPIA WARE (84508) [facility] ([facility]) [address] [place], [place] [address]Nqfjyxvwoakam metabolic 2000 panelon 48-36-5387Kgzqgbe BCP dye [Mass/Vol]4.1 g/dLNormal3.4-5.0[facility] Comment on above:Performed By: #### 74081-6 #### OLIMPIA WARE (47666) [facility] ([facility]) [address] [place], [place] [address]WWO [Catalytic activity/Vol]94 U/PDsquej93-287QoobjfsvfuClermont County HospitalComment on above:Performed By: #### 05590-2 #### OLIMPIA WARE (10202) [facility] ([facility]) [address] [place], [place] [address]VKF With P-5'-P [Catalytic activity/Vol]15 U/YTizkuf55-00 [facility] Medical CenterComment on above:Result Comment: Patients treated with Sulfasalazine may generate falsely decreased results for ALT.Performed By: #### 01385-1 #### OLIMPIA WARE ([id number]) [facility] ([facility]) [address] [place], [place] [address]Oeclw gap [Moles/Vol]12 mmol/JIxkuez81-21AelafsrkayClermont County HospitalComment on above:Performed By: #### 08667-1 #### OLIMPIA WARE (73293) [facility] ([facility]) [address] [place], [place] [address]KLA With P-5'-P [Catalytic activity/Vol]13 U/LNormal9-39 [facility] Medical CenterComment on above:Performed By: #### 11728-0 #### OLIMPIA WARE (58624) [facility] ([facility]) [address] [facility] [place] [address]Eaqaelldx [Mass/Vol]0.4 mg/dLNormal0.0-1.2UnClermont County HospitalComment on above:Performed By: #### 48177-9 #### OLIMPIA WARE (84086) [facility] ([facility]) [address] [facility] [place], [place] [address]Yuatcij [Mass/Vol]9.6 mg/dLNormal8.6-10.3UnClermont County HospitalComment on above:Performed By: #### 52361-0 #### LOIMPIA WARE (48421) [facility] ([facility]) [address] [facility] [place] [address]Mbqcbcii [Moles/Vol]104 mmol/XAqpbai20-524XsuujglpowClermont County HospitalComment on above:Performed By: #### 76620-8 #### OLIMPIA WARE (62995) [facility] ([facility]) [address] [facility] [place], [place] [address]IZ7 [Moles/Vol]27 mmol/RXscqpq47-40RdyvgppudrClermont County HospitalComment on above:Performed By: #### 77873-4 #### OLIMPIA WARE (19509) [facility] ([facility]) [address] [facility] [place], [place] [address]Dpoktlrrjn [Mass/Vol]1.18 mg/dLNormal0.50-1.30UnClermont County HospitalComment on above:Performed By: #### 03190-5 #### OLIMPIA WARE (25327) [facility] ([facility]) [address] [facility] [place], [place] [address]Ccmafdiafz filtration rate/1.73 sq M.uuwmknoci43 mL/min/1.73m*2Normal>60UnClermont County HospitalComment on above:Result Comment: Calculations of estimated GFR are performed using the 2020 CKD-EPI Study Refit equation without the race variable for the IDMS-Traceable creatinine methods. https://jasn.asnjournals.org/content//ASN.3571403909Gwdhkugaq By: #### 27998-8 #### OLIMPIA WARE (04071) [facility] ([facility]) [address] [facility], [place] [address]Abocsvr [Mass/Vol]171 mg/aSHhbd17-02MuctirvypzClermont County HospitalComment on above:Performed By: #### 02558-7 #### OLIMPIA WARE (25830) [facility] ([facility]) [address] [facility], [place] [address]Kchkoqshv [Moles/Vol]5.0 mmol/LNormal3.5-5.3[facility] Medical CenterComment on above:Performed By: #### 28325-9 #### OLIMPIA WARE (82640) [facility] ([facility]) [address] [facility], [place] [address]Pbugmvq [Mass/Vol]6.7 g/dLNormal6.4-8.2UnClermont County HospitalComment on above:Performed By: #### 66028-4 #### OLIMPIA WARE (16560) [facility] ([facility]) [address] [facility], [place] [address]Eyhfvh [Moles/Vol]138 mmol/KTbkaqw879-824ByknvwoezrClermont County HospitalComment on above:Performed By: #### 28037-7 #### OLIMPIA WARE (67553) [facility] ([facility]) [address] [facility], [place] [address]Ulaw nitrogen [Mass/Vol]23 mg/dLNormal6-23[facility] Medical CenterComment on above:Performed By: #### 56958-3 #### OLIMPIA WARE (21165) [facility] ([facility]) [address] [facility], [place] [address]YJD & Creatinineon 70-31-9515Hgukjvtlch [Mass/Vol]1.28 mg/dL High0.66 - 1.25 mg/dLWYANDOTEst, Glom Filt Tphi61Pix- PINFWYANDOTComment on above: GFR calculated using CKD-EPI [...] pathology study Ordered By: Gilda Ricci on 41-96-1131Gqtwuwrlgm e0dplYQoFIYarMMrQyRaTPRuLYRai9slPCUhfFEcZqSiToYpFxQvPzonzRKpTNXbOaTwn8ezf924gRLg x2srHKQwMjA4hPAwVVRg nUvlsuu8mHwrRcHzEBWzh6gjmxLcNdGmFFHaPRChKLWdiBuzqgu9kYrpNjLuOHWkaUbiDXKmYRf8jA78 EEKkeJ1rdKJxJNjibjUr ZdC7VJurAYYuQbO8MXXigMYuOUWiA0vrWQTtPXcrTVRcTQdiyCIlULH5mLllp8R4aIOuiQQwrUuuVePx ZbRsCfYGq4YjIDr6mSfs X3DvVJIkYmO8wYHiYJStBDpuGDEyJWZdheY9iKnvdwRyd74cxCSvBVIsCWKwXcXcN90gex7ukF75cM59 GLnkjxS7oNEyr0Vqs06g m839xC2utDYbTOI6MABcRKIzxRIjZOTyQCZ9QZEeuPTkL4gkBLKgZA8azhniMZfbTNscWQPyjUG5WNWz gFQqL2MzLNSpFXnrXXDp etm7KtFtIr6nnNRchLdfGGwky6ouy9qsvLJsFvd8HWDhLzIxSrnzDLvhq8Pfp1xdNLFild0yWGE5iWDi gRjya6M7tBZkOZPodACr rcExJNXiJcA1ICbjAP2aet83NLOgZLD3kg2dbQBcrCtubsThoXWyZLopB9VjLZNqt284JSHfF9XjUFEn t2U4jpRzTnMjJNLnxKL9 jfN2RINyGNp2qVYwtsV7cuQhsPBlR5aaoB8yCBFrVP4fieytj7qtNHckYQcjFURriXJ1hcV5WHKorUCi R0QbhJ6iKOUoXBbmKYLm djm9GdHmWj5bvTKskIsxOOlyXimrAIrxZSFudaCmquBvaBldZJAsWVJqTVjhYTTaAJcdVGHgPJIjOhHa uBZmFRubo6FhivOdzRlh EIMkXEK2QmD4JGH9VEF7UFx9pZAfFyPhsPqgEZbvELJ4CqDyUFh8cHLdBiQisVk0TQXkRNR3NQx6HHn7 wPD4TRAwjUw4SmTuLOF2 SwluJEs3fHn6ITKgfWn7OfKlJWB5YCWkEEUsrUssoSpuaE2sZlXcHzMoXjzbBB5sRWZgN8owsVCwRNPc KHDwE1wlZpHfjP4acKss TTqlXqPcSaIsUwDIihYae3QpnY9vEDVrNhT6mJIbigEdW8VvzAFeiKXaQGY4kwSyUDZlm0PaADXge8D6 lrOdkvI0aSchNMRfXIOj qNFdCF5UDFAxUOCdZLHwgyWuaD2aAVJvp39me62ostLxJHHtpyGuLISeGHTknH5hKmVhQQ7euLv8GTBt cQPxmLPlWeRnGAEvCM65 giLxVMNEK8GsVjWcYAWWP8UodIM5FXSvw8ObFcBcfuIonRFkmwMwVM8tRFPpvWMkejGnMDY7POJtSGMV BzSxTLMrx7UbSC8yVJLx sOueNSNqzS4lg4ToSQZgj61uAPOTwRNjUBWuo3KcjEEkh9QcGHKdPCAfmF3bJRItPJ5hYFHfECvlDJJw suSmwj8cbvBrDYLsHCSo P3DmgdnzuAsvzoUcQQVkwv7eyfNwOER1ZBQnQEUZCDTbifDaWA74LW3oPJChgNycjQ8icSUpjPWVujo0 CYMpaNA1RJxfe6CnbTPm ysJOoAO1OWgrzxDeKAHawZTavGTEEP44HPXyFRLuOCPTEUNsZI6xzxUqp1YzkdSfvRqeHST7fComOKOt l1YazJ5uF97jyYeaf5An rGAcooIfPVGdTPZrVsYALMZnxyuhnc5mZKxcraM5IOL3GYbhCIIbXOUgCh8eUXSdoF3iM6UpCGG3tdRj a8QuAjIGcHWbnO64sZSh jy16PIBzXOCdE1FhEDSnGSFaYSgnofAxlAvlUPEwz56zfYEvgyVde0MnnxEnMGZhM9wpIUTpgUSuaUUa y7AeuH9odOFypfSwZXG1 xBNcQSPvpI4aCSUqmGuaMVGkfF8qW6HwXSzjDq6kYVCuyscnLH2rtm07NK9lhuGqDM2dvzKwYO93fnAo Z8fRILnlWDNuiEIomTmh pUNkIDMvKSQlhxTpsc1rmHhrySFrw91fbJS8sNG8KXFebY2zW6MzWKhzCe3aADOsdyezoIRfkTqsLh4s OEEcHRLfq9EphCBwt2Ag QONzNJStk3XiDEEsf0f9rGVgmQIhr5QccDQ6OYGdv2NfbRh0ZUOorbCaijQePGDtjdDmT20icEMbfVNa f2dvA8ydq2TrbZ4rFVKemLAvf3ErcCU2GNy3TpgaDCD4Lwemszcglo [facility] Work Phone: laboratory comment Gui (Report) x3whhXXzBAEak4xdWHBswGDsPfRyEtOzThUmXaqvnTFiNXopnkPgZQmvi5JaY0RkPxTuVHuvoeFwULFl SxhzyiskLBPpFFZ3akYu WEEaUBmyVYBmINjvSl3ehYGloHviHgBkOWFir1hswiHLTSknCVQMXEs5t3vxGEYfJxJ5zTAcYVmvW8gx vcTkhFZoJ4Vis7DjQKg0 oG97TNOjvJ1xaNPiKYdtwbFaCbU9WRkwYNAjLpJ2EHAnwISgUNSjZ0voSXQoXJeuXFRuKIczfFKdNJF6 qGnan3C8nYMdeZFabMny LwMoAmBoNvZOj1YfAJy2xNeiI7LbVNRbQcR1eQErDFRjHLifMMKuFXUrikR0qE53NRtqamL6sODda1We n90do900aF3kjJHiEZU0 WHUpJRNzoBEgUCRyWPR0BOCofREyQ8kwJuSnfYViO9JvUzTfzDQgR2OoHoEyzGIqU1SeDdKunCQySSCq kPI9VEglf842DDJ4GeOx UX5sW2Frs6S3mW4qgPBgXMHcrZZvFsGjVEAyet3giFQlTLpmx3TgRHN3jvB5fOGoqNXqPFUaGK00Mfiv a5TwZuxuTVM2SHWetlLe l2Aec0yvTnUcscLeL2qbU7WqSIXtKDFzKXDdUaTaxwPly7Ukg8QguMJtuGk4y4fcTTHcNGInuPutv8os IHU9MWNlY1A9yNVqp0ts NNmxKPZukHJ2rmM8GObfCNFpjvF9knZ6WXxtXXUefEK1pvS1TDtrZEDbJgL7fsZ4KDrzWGDuWYG4DyRg RKMxe9RtvophNgLrq3Pw qQNeLXurM07as090PDMyrpHzL6ugvJZmecqagTKalqdkXGwzulX0MMOhWGCkOUvyZUUdZVWkZhOvqNJu ZzEwMzNcaGljaFxmMVxk KxAhTJAqTHboD2juFgPeSnSqEMRKmRX4rYIls6svjxD3pUXwXO4sMQNxoIYbkjUtt9Y3RUU3nEXziY4b kRZnJQSgnNJzpbMraa53 oDQrnQB4XCHhBBFxjQSszX1wFRQrSZLJxV1leIKYkfVqpcLnTZXalGkkfp2PmFAbtv3vwHFvB6VluUbq lOOiETTzTOZgzDojeSTfITAlAMJchflbh3DsJTBxtJHtB8OfJG9nQZFywm66Dihjxonbfa [facility] Work Phone: pathology report Cancer NarrativeSurgical Pathology Case: [id number] Authorizing Provider: Jeremiah Magaña MD Collected: 10/07/2023 0811 Ordering Location: [facility] Received: 10/07/2023 0942 Pathologist: Gilda Butterfield Asa, MD PhD Specimen: DUODENUM ENDOSCOPIC MUCOSAL RESECTION, Duodenal Bulb [facility] Work Phone: pathology report comments [Interpretation] Narrative u9uigZUxEHXjoLGrGPDtH8aveoUzBIKofVSaM0JllgmcSFtnLZ9gJR2plVcwgTTbbMMhCXThDlOis9ev q918cPVuv3dfVJRCmmrm hRd5zOrzR53on0J3DdwqF95jnXZhKVB6HSVkDFNhqWTeFHKvUQH8PUBwxOZuF9nkMJJfRS5twzjtPXfr LChfNJPzxAN1EYMzlJJt H2KrAHBdTOyuBWLbfng7XrYdPq5atBZilUauOHvcDTOfXGZaMQmaIDBsKeTfKBriQNFxh5VogVLpoT35 cyBleHRlbnNpdmUgYXJ0 ZDGkZ9MiTuQ2KDX0WLynjuPif3GbG1afw39yH3ZeeixyFBHveqFhkg6wTGFrd3AjRFawBZcmaPCaObZ8 gI6mJS3cJDFtb9s6wSKc ESUfbHcqATbbhRvisnB9dBKzgFUqz1FgThNSkUSlHCMccwIybsYwtiazTH7lNEHbGqCoEVDnBGCvwZVr SHVac1RqIG8ytvdiFWV6tZ2jtpOtcrN0sNzmIVByTRVpaVKlIbazWIL5Waczjwjabf [facility] Work Phone: pathology report final diagnosis Narrative o0iunNAeXMPdrDBgYMBlD6kiqgZqGGLcjGLmW9KvzqmkWFlvKX1kUC4xlZupdDAnqZYlZPNjJkKsn2ik k692xNGbt2xpZEBMhnxi pJb1rFmdX29av1Q5FywdO37gkUUyBLP8BXDoNZIauJOyFPTbWNA5AGZubQGkK4eiYEQvDJ8qylokVThi FMywPMXqgSH6ADJfgWAg X0BjIHJdWYdaDETavjf1OqKiTd6qjDMqqZagPLeiJ2aabZ3zVtO7VBiiI9ahnW4zVWu3IHxwZZVkrVY9 iiV1VQThzVYcL9RquB1s WJXoSA3xmao5l1xjROI3UDthPIIuInM7vrH7YRTwjBWoXNvukUIsilpjOCKatmNVobSxBAOza0bfQ7px CDloMAjcX80vp7hnXdZA iH6cIX88mUUfAqOdGxbvTE7tn9Pky1DdLmDeiDSvj0HdRZQnt4UmoEeonzirZHQ0Sbkcyjhpdf [facility] Work Phone: pathology report gross observation Narrative u7hjlUXbVSZysKHcIJUeX0fbfuFkKMKmhJLmK1XikfulPJyiZD4iSP7slMecnAEcpPJnMDMrBjZqx6by b935jUCgw7jbWHMIjksf yZi2zHxqU05lt1Q7GmicW56qbOUuXQM7LSGqOKOyzAYoXZUuWHU3TKWweYEaD8lqUXAaYN3cmqkeIQps YDvzVYXjsDT1KQUyxSIr C5JsHVJpTGtdZVQgxcu6YhFiFa8blATlaVmhFNvfJrrzzUclk9ArgEOtFZvaPTZaRTIkWXziqjucMKc7 HJMbIVrskBQxXU7twHas JdwpiPbgu3WndNCvWDtoJRFaHSEdUImePPPnA2AXGMPkSBVeOwL5BQDnPTd3THl3OW7GFhTwQFTrAAVt Rfp0GDStMGn1YXynSN4A PVP2DpYqRNY3DvU8AMW6UpOdHM0nTWanzIWvNAmjx7MeKyJdURNfCTswmpN9QIKtbfOaa0LkMUpmkKsq MQWnLjMcoIihvN8sStZl OEKWCMHhyDCkKSYloaGmb5UmNCqtqaootVWdQCrnEXV2sOOhEBSlYWWvJCPcNB08Q3ZzglEtRXIrykLl oW9biFy8TLsmvhRbExQs KULaRGXfAYVnMXXbKTHxbUc3nNJpRRAaycVxkLNpcDTxd8FxsGItVFEaHkKemWwwy9KlRYCjXWOddGEk g3CiSUNxEmIehBQfXjKb bWFxOkJjD32zwH8wJLegkdZvMFJeQcUTkALld8QiX3eeRB5wzVAbt4QzoEl4pICkMRisUCEphS4tuR7i XsJvBCVnHZF0KRQoIYRo hmiqGSImGXYzOlIrYEMzE5ypKSWzLDYCo8jnqEpfm4DdxGXyKA71EOPcwWFsKLZ4WR2jkIprCSG0 [facility] Work Phone: pathology report relevant history Narrative d9onoPIiUDKmeIMgGJRfZ1oqikKiJLRuuTQsS2UgwfuwFHjaQS4hKR9wuXfcfZXhmFJtMGKvGwDhy1lu n889rMKcw3wcTKWPnmlg xDa2lWweG81uv9K4ErjzQ9cyQAHlADdmZAIpAMqmrXIjQSp1KHFgiCWvbiMdJxApMZIvcZUcrOW1EYFv BG1vswmgRMkjIQlzIDZe fkC8QESliDAfS1OgTTDiQQ5kclrxTXC0ANoyCHRhPBT4FkPxBGIir8Ljqjr0DwQsvJWrIEmlrIQuybjs czIwXGNmMSBQcmltYXJ5 KZ9sqRdtqwBcrVOuZMMey0QjSD1vyeixOZNjQV0btGPmhXLeCtIgoJ1uGO39kLZoXEGveBfaFShWW9Fm SF5nK6WfSRMcwIZfeS==YhxhqrooqqMem[facility] Work Phone: [facility] Work Phone: eNDOSCOPIC ULTRASOUND (UPPER)on [id number] ULTRASOUND (UPPER)Table formatting from the original result [...] neoplasm of duodenum (Multi) Staff Staff Role Fazel Dinary, MD Proceduralist Medications See Anesthesia Record. Preprocedure [...] EXAM Mayelin Page 10/07/2023 0811 Procedure Location [facility] [address] [facility] [address] [place] [address] [facility] [address], [place] [id number] Procedure Provider Jeremiah Magaña MDMercy [facility] HospitalEndoscopic Ultrasound (Upper)on [id number] formatting from the original result was not [...] EXAM Mayelin Page 10/07/2023 0811 Procedure Location [facility] [address] [facility] [address] [place] [address], [facility] [address] [place] [address] Procedure Provider Fazel Dinary, MD [facility] Work Phone: [facility] Work Phone: Radiology Study observation (narrative)[facility] Work Phone: Glucose Test strip manual (Bld) [Mass/Vol]on [id number] [Mass/Vol]149 mg/jTHcpt22 - 99 mg/dLUnAshtabula General HospitalInterpretation and review of laboratory resultsAbnormalUniCherrington HospitalUnAshtabula General HospitalUnAshtabula General HospitalGlucose [Mass/Vol]149 mg/fPNpvd94-38BdzzqsgvwjRiverview Health InstituteComment on above:Performed By: #### [id number] #### OLIMPIA WARE ([id number]) [facility] ([facility]) [address] [place], [place] [address]Quvdzqhz pathology studyon [id number] pathology study Pathology report.total SEE COMMENT Surgical Pathology Case: [id number] Authorizing Provider: Jeremiah Magaña MD Collected: 10/07/2023 0811 Ordering Location: [facility] Received: 10/07/2023 0942 Pathologist: Gilda Butterfield Asa, [...] the Department of Pathology at [facility]. The FDA does not require this test to go through premarket FDA review. This test is used for clinical purposes. It should not be regarded as investigational or for research. This laboratory is certified under the Clinical Laboratory Improvement Amendments (CLIA) as qualified to perform high complexity clinical laboratory testing. The assays were performed with appropriate positive and negative controls which stained appropriately.[facility] [facility] Allen HospitalURINE CULTUREon [id number] identified Cx Nom (U) MICROBIOLOGY REPORT [facility] White Source [facility], [address] [place] [address], [address] PATIENT: YUSEF CAR LOCATION: [facility] - - : 1950 AGE: 73 SEX: M ADM: 07/31/23 Att. Physician: PHYSICIAN, NON-STAFF Order Id: [id number] Req. Physician: PHYSICIAN, NON-STAFF Source: urine, clean catch Site: Collected: 07/31/23 11:50 Current Antibiotics: not stated Antibiotics comment: C Lucia Keith M E N T S [place] - Source of Urine Collection? Urine clean catch STATUS OF ORDERED AND REPORTED TESTS URINE CULTURE FINAL 08/02/23 URINE CULTURE FINAL 08/02/23 07:56 08/01/23 No growth-preliminary 08/02/23 No growthNormalSaint Nury's Medical CenterStudy Interpretation of outside studyon 29-92-7238Ldcny is no result for this study. This is a placeholder for comparison films only.[facility] RADUS RENAL BIon 77-71-4693V[address] [address] Ultrasound Report Signed Patient: YUSEF CAR MR#: [id number] : 1950 Acct:[id number] Age/Sex: 73 / M ADM Date: 07/17/23 Loc: US Attending Dr: Shaikh Jamie Cartagena Ordering Physician: Shaikh Mitzi Ayala Date of Service: 07/17/23 Procedure(s): US renal BI Accession Number(s): [id number] cc: VANESSA STEELE ; Shaikh Mitzi Ayala The [address] [address] Patient Name: YUSEF CAR MRN: [id number] date: 1950 Sex: M Assigned Patient Location: US Current Patient Location: [place] Accession/Order Number: [id number] Exam Date: 07/17/2023 09:40 Report Date: 07/17/2023 [...] Normal-appearing filled bladder. Electronically authenticated by: MARCELLO PETTY Date: 07/17/2023 10:21 Dictated By: Marcello Petty M.D. Signed By: 07/17/23 1023 DD/ 1021 TD/TT: Beverage Inspection Machine Tender:MEHREENadiolcata, Radiologist, - 07/17/2023 [place] [address] Ultrasound Report Signed Patient: YUSEF CAR MR#: [id number] : 1950 Acct:[id number] Age/Sex: 73 / M ADM Date: 07/17/23 Loc: US Attending Dr: Shaikh Jamie Cartagena Ordering Physician: Shaikh Mitzi Ayala Date of Service: 07/17/23 Procedure(s): US renal BI Accession Number(s): [id number] cc: VANESSA STEELE ; Shaikh Mitzi Ayala The [place] [id number] Patient Name: YUSEF CAR MRN: [id number] date: 1950 Sex: M Assigned Patient Location: Current Patient Location: US Accession/Order Number: [id number] Exam Date: 07/17/2023 09:40 Report Date: 07/17/2023 [...] Normal-appearing filled bladder. Electronically authenticated by: MARCELLO PETTY Date: 07/17/2023 10:21 Dictated By: Marcello Petty M.D. Signed By: 07/17/23 1023 DD/ 1021 TD/TT: Beverage Inspection Machine Tender: [facility] Magnet SystemsRadiology Study observation (narrative)[facility] Magnet SystemsUS RENAL BI Ordered By: Radiologist Radiology on 56-37-8554[facility] Work Phone: EGD Study observation Narrativeon 66-74-1817Ptqos formatting from the original result was not [...] 0859 Procedure Location [facility] [address] [facility] [address] Referring Provider Jazlyn Mcarthur, Software Technician-payloader operator [address] [address] [facility] [place] [address] Procedure Provider Vic Mcrae MD [facility] Work Phone: [facility] Work Phone: Radiology Study observation (narrative)[facility] Work Phone: Glucose Test strip manual (Bld) [Mass/Vol]on 71-96-6031Sehcary [Mass/Vol]113 mg/sNUlrl54 - 99 mg/dLUnAshtabula General HospitalInterpretation and review of laboratory resultsAbnormalUniversParkview Noble HospitalUnAshtabula General HospitalCT Chest and Abdomen and Pelvis W contrast Kristie 55-53-2210UYSIA: 1. Nodule superior segment left lower lobe. 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 COMPARISON: CT abdomen 12/25/2020 ACCESSION NUMBER(S): [id number] ORDERING CLINICIAN: JAZLYN MCARTHUR TECHNIQUE: Contiguous axial [...] fat containing umbilical hernia is present. 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 COMPARISON: CT abdomen 12/25/2020 ACCESSION NUMBER(S): [id number] ORDERING CLINICIAN: JAZLYN MCARTHUR TECHNIQUE: Contiguous axial [...] Juanjose Walters 05/27/2023 11:47 AM Dictation workstation: [id number] [facility] Work Phone: ct Chest and Abdomen and Pelvis W contrast IVOrdered By: Juanjose Walters on 66-39-2337QvtnkclltcAshtabula General Hospital Work Phone: ct Chest and Abdomen and Pelvis W contrast Kristie 48-35-5544Rsmljzczc Study observation (narrative)[facility] Work Phone: CBC AND DIFFERENTIALon 05-12-2022% AUTOMATED IMMATURE GRANCanceledNormalSt. Vaughan Regional Medical CenterComment on above:Order Comment: TEST CBC AND DIFFERENTIAL WAS CANCELLED, 05/12/2022 10:[address] ciaran mcmanus needed.Result Comment: Immature Granulocyte Count (IG) includes promyelocytes, myelocytes and metamyelocytes but does not include bands. Percent differential counts (%) should be interpreted in the context of the absolute cell counts (cells/L).Performed By: #### CBCDF #### [address] [place] [address]% BASOPHILCanceledNormalSt. Vaughan Regional Medical CenterComment on above:Order Comment: TEST CBC AND DIFFERENTIAL WAS CANCELLED, 05/12/2022 10:[address] ciaran mcmanus needed.Performed By: #### CBCDF #### [address] [place] [address]% EOSINOPHILCanceledNormalSt. [facility] Medical CenterCompontiac general hospital on above:Order Comment: TEST CBC AND DIFFERENTIAL WAS CANCELLED, 05/12/2022 10:[address] wagoner doesngustabo needed.Performed By: #### CBCDF #### [address] [place] [address]% LYMPHOCYTECanceledNormalSt. [facility] Regional Medical CenterCompontiac general hospital on above:Order Comment: TEST CBC AND DIFFERENTIAL WAS CANCELLED, 05/12/2022 10:[address] wagoner doesngustabo needed.Performed By: #### CBCDF #### [address] [place] [address]% MONOCYTECanceledNormalSt. [facility] Medical CenterCompontiac general hospital on above:Order Comment: TEST CBC AND DIFFERENTIAL WAS CANCELLED, 05/12/2022 10:[address] ciaran mcmanus needed.Performed By: #### CBCDF #### [address] [place] [address]% NEUTROPHILCanceledNormalSt. [facility] Regional Medical CenterCompontiac general hospital on above:Order Comment: TEST CBC AND DIFFERENTIAL WAS CANCELLED, 05/12/2022 10:[address] ciaran mcmanus needed.Performed By: #### CBCDF #### [address] [place], [place] [address]YSCDHTRKSzbvhplcUeztukAz. [facility] CenterCompontiac [facility] hospital on above: Order Comment: TEST CBC AND DIFFERENTIAL WAS CANCELLED, 05/12/2022 10:[address] wagoner doesngustabo needed.Performed By: #### CBCDF #### [address] [place], [place] [address]ZVVEQOFGJKRGAuakgrwoUpnaegGj. [facility] CenterCompontiac [facility] hospital on above:Order Comment: TEST CBC AND DIFFERENTIAL WAS CANCELLED, 05/12/2022 10:[address] ciaran mcmanus needed.Performed By: #### CBCDF #### [address] [place], [place] [address]JJDXMEFBTKRqiimpiiApjuvgJa. [facility] CenterComp[facility] hospital on above:Order Comment: TEST CBC AND DIFFERENTIAL WAS CANCELLED, 05/12/2022 10:[address] ciaran mcmanus needed.Performed By: #### CBCDF #### [address] [place], [place] [address]NLEFgovfpvjIxzmblHf. [facility] CenterComp[facility] hospital on above:Order Comment: TEST CBC AND DIFFERENTIAL WAS CANCELLED, 05/12/2022 10:[address] ciaran mcmanus needed.Performed By: #### CBCDF #### [address] [place], [place] [address]AIPGxwqtbnoXudvjbJk. [facility] CenterComp[facility] on above:Order Comment: TEST CBC AND DIFFERENTIAL WAS CANCELLED, 05/12/2022 10:[address] ciaran mcmanus needed.Performed By: #### CBCDF #### [address] [place], [place] [address]NWBPEWGPELQcvrkqrtWpgkzgPo. [facility] CenterComp[facility] hospital on above:Order Comment: TEST CBC AND DIFFERENTIAL WAS CANCELLED, 05/12/2022 10:[address] ciaran mcmanus needed.Performed By: #### CBCDF #### [address] [place], [place] [address]QMTMVqzphetlXjutotLx. [facility] CenterComp[facility] hospital on above: Order Comment: TEST CBC AND DIFFERENTIAL WAS CANCELLED, 05/12/2022 10:[address] ciaran mcmanus needed.Performed By: #### CBCDF #### [address] [place], [place] [address]TOKUfwekbdqRdhsjtGa. [facility] CenterComp[facility] hospital on above:Order Comment: TEST CBC AND DIFFERENTIAL WAS CANCELLED, 05/12/2022 10:[address] ciaran mcmanus needed.Performed By: #### CBCDF #### [address] [place], [place] [address]WTNQIMWRSvnpnxnvPvparwFh. [facility] CenterComp[facility] on above: Order Comment: TEST CBC AND DIFFERENTIAL WAS CANCELLED, 05/12/2022 10:[address] ciaran mcmanus needed.Performed By: #### CBCDF #### [address] [place], [place] [address]GZJXNQFZAFPndtwyinEwbjvgYo. [facility] CenterComp[facility] hospital on above:Order Comment: TEST CBC AND DIFFERENTIAL WAS CANCELLED, 05/12/2022 10:[address] ciaran mcmanus needed.Performed By: #### CBCDF #### [address] [place], [place] [address]MUFLljlmvqtUjwwliWa. [facility] CenterComp[facility] hospital on above:Order Comment: TEST CBC AND DIFFERENTIAL WAS CANCELLED, 05/12/2022 10:[address] ciaran mcmanus needed.Performed By: #### CBCDF #### [address] [place], [place] [address]DNGSpywfsjuBpkehuLu. [facility] CenterComp[facility] hospital on above:Order Comment: TEST CBC AND DIFFERENTIAL WAS CANCELLED, 05/12/2022 10:[address] ciaran mcmanus needed.Performed By: #### CBCDF #### [address] [place], [place] [address]IHH-LOHeieywejIdwdvxFe. [facility] CenterComment on above: Order Comment: TEST CBC AND DIFFERENTIAL WAS CANCELLED, 05/12/2022 10:[address] ciaran mcmanus needed.Performed By: #### CBCDF #### [address] [place], [place] [address]RDLKepcepjkAybqoxXt. [facility] CenterComment on above:Order Comment: TEST CBC AND DIFFERENTIAL WAS CANCELLED, 05/12/2022 10:[address] ciarna mcmanus needed.Performed By: #### CBCDF #### [address] [place], [place] [address]JJPUZJPTKPPVY PANELon 60-14-8832OWGSQPEQoxkwtajKypdupUu. [facility] CenterComment on above:Order Comment: TEST COMPREHENSIVE PANEL WAS CANCELLED, 05/12/2022 10:[address] ciaran mcmanus needed.Performed By: #### CMP #### [address] [place], [place] [address]FELFKGHV PHOSPHATASECanceledNormalSt. [facility] Center Comment on above:Order Comment: TEST COMPREHENSIVE PANEL WAS CANCELLED, 05/12/2022 10:[address] ciaran mcmanus needed.Performed By: #### CMP #### [address] [place], [place] [address]BMMZhsiwgyeHeodjrOo. [facility] CenterComment on above:Order Comment: TEST COMPREHENSIVE PANEL WAS CANCELLED, 05/12/2022 10:[address] ciaran mcmanus needed.Result Comment: Patients treated with Sulfasalazine may generate falsely decreased results for ALT.Performed By: #### CMP #### [address] [place], [place] [address]ERFBE GAPCanceledNormalSt. [facility] Regional Medical CenterComment on above:Order Comment: TEST COMPREHENSIVE PANEL WAS CANCELLED, 05/12/2022 10:[address] ciaran mcmanus needed.Performed By: #### CMP #### [address] [place], [place] [address]OQWVnsrwfkjKdcmrjKa. [facility] CenterComp[facility] hospital on above:Order Comment: TEST COMPREHENSIVE PANEL WAS CANCELLED, 05/12/2022 10:[address] ciaran mcmanus needed.Performed By: #### CMP #### [address] [place], [place] [address]MCHPLQVJDZNTdwntlhpQjfibaVv. [facility] CenterComp[facility] hospital on above:Order Comment: TEST COMPREHENSIVE PANEL WAS CANCELLED, 05/12/2022 10:[address] ciaran mcmanus needed.Performed By: #### CMP #### [address] [place], [place] [address]GALNBLSLV,TOTALCanceledNormalSt. [facility] CenterCompontiac general hospital on above:Order Comment: TEST COMPREHENSIVE PANEL WAS CANCELLED, 05/12/2022 10:[address] ciaran mcmanus needed.Performed By: #### CMP #### [address] [place], [place] [address]FYEWHRUCpgvallxEyzvjoJi. [facility] CenterComp[facility] hospital on above: Order Comment: TEST COMPREHENSIVE PANEL WAS CANCELLED, 05/12/2022 10:[address] ciaran mcmanus needed.Performed By: #### CMP #### [address] [place], [place] [address]TTEPLJLQOoyzymasDhyptkGb. [facility] CenterComp[facility] hospital on above: Order Comment: TEST COMPREHENSIVE PANEL WAS CANCELLED, 05/12/2022 10:[address] ciaran mcmanus needed.Performed By: #### CMP #### [address] [place], [place] [address]HEITMOJRGZMprxoxicDdmixyWd. [facility] CenterComp[facility] hospital on above:Order Comment: TEST COMPREHENSIVE PANEL WAS CANCELLED, 05/12/2022 10:[address] ciaran mcmanus needed.Performed By: #### CMP #### [address] [place], [place] [address]bKCM FEMALECanceledNormalSt. [facility] Regional Medical CenterComment on above:Order Comment: TEST COMPREHENSIVE PANEL WAS CANCELLED, 05/12/2022 10:[address] ciaran mcmanus needed.Result Comment: CALCULATIONS OF ESTIMATED GFR ARE PERFORMED USING THE 2020 CKD-EPI STUDY REFIT EQUATION WITHOUT THE RACE VARIABLE FOR THE IDMS-TRACEABLE CREATININE METHODS. https://jasn.asnjournals.org/content/early/ASN.3101925020Mwohpgiow By: #### CMP #### [address] [place], [place] [address]cWGT MALECanceledNormalSt. [facility] Regional Medical CenterComment on above:Order Comment: TEST COMPREHENSIVE PANEL WAS CANCELLED, 05/12/2022 10:[address] wagoner doesngustabo needed.Result Comment: CALCULATIONS OF ESTIMATED GFR ARE PERFORMED USING THE 2020 CKD-EPI STUDY REFIT EQUATION WITHOUT THE RACE VARIABLE FOR THE IDMS-TRACEABLE CREATININE METHODS. https://jasn.asnjournals.org/content/earlyASN.1165292419Dwvsujcoo By: #### CMP #### [address] [place], [place] [address]BFBHIPAWgjhduhcVuzpioRa. [facility] CenterComment on above: Order Comment: TEST COMPREHENSIVE PANEL WAS CANCELLED, 05/12/2022 10:[address] wagoner doesngustabo needed.Performed By: #### CMP #### [address] [place], [place] [address]LILYHEBIYPlfjjutrSgjrztTd. [facility] CenterComment on above:Order Comment: TEST COMPREHENSIVE PANEL WAS CANCELLED, 05/12/2022 10:[address] ciaran mcmanus needed.Performed By: #### CMP #### [address] [place], [place] [address]UBUFDDShfetcrfOgcvsuSw. [facility] CenterComment on above: Order Comment: TEST COMPREHENSIVE PANEL WAS CANCELLED, 05/12/2022 10:[address] ciaran mcmanus needed.Performed By: #### CMP #### [address] [place], [place] [address]EITCY PROTEINCanceledNormalSt. [facility] Regional Medical CenterComment on above:Order Comment: TEST COMPREHENSIVE PANEL WAS CANCELLED, 05/12/2022 10:[address] wagoner doesngustabo needed.Performed By: #### CMP #### [address] [place], [place] [address]ZERB NITROGENCanceledNormalSt. [facility] Regional Medical CenterComment on above:Order Comment: TEST COMPREHENSIVE PANEL WAS CANCELLED, 05/12/2022 10:[address] ciaran mcmanus needed.Performed By: #### CMP #### [address] [place], [place] [address]Dfdsqh Note - Heme Onc-Follow Up Visiton 24-27-4028Bhfowf Note - Heme Onc-Follow Up VisitPatient Visit Information: Visit Type: Follow Up Visit History of Present Illness: ID Statement: YUSEF CAR is a 72 year old Male Chief Complaint: Duodenal neuroendocrine tumor Interval History: 71 years old gentleman from [place], [place] who has been referred to me from [facility]. The patient complained of acid reflux for [...] 3 Weights & Heights: Date: Weight/Scale Type:Height: 14-Mar-2022 13:21789 kg / standing jlqga473.8 cm 20-May-2021 12:47815 kg / standing fyskm450.8 cm 04-Feb-2021 09:08638 kg / standing .8 cm Physical Exam: [...] BUN CREAT 26-Aug-2021 1 (more content not included)...NormalAd[facility]Health [facility] Note - Intakeon 59-75-6656Jpsnwv Note - IntakePatient Visit Information: Visit TypeFollow [...] 3 Weights & HeightsDate: Weight/Scale Type:Height: 26-Aug-2021 13:68716 kg / standing lduju167.8 cm 20-May-2021 12:19904 kg / standing .8 cm SpO2 (%)94 [...] falls riskimplement environmental risk factors interventions Spiritual/Procedural: Spiritual/cultural/latter day practices important for us to knowno Alcohol, prescription or recreational drugs taken this AM for non medical reasonsno Electronic Signatures: Kindra Maher (PCNA) (Signed 12-May-2022 09:56) Authored: Patient Visit Information, Vital Signs, Allergies, Outpatient Medication Profile, Notification, Travel History, Falls, Spiritual/Procedural Last Updated: 12-May-2022 09:56 by Kindra Maher (PCNA)[facility] HospitalGLUCOSE-POCTon 89-79-4687Mbsnlhm [Mass/Vol]139 mg/cMIskf26 - 99. [facility] Medical CenterComment on above:Performed By: #### GLUPO #### [facility] [address] [place], [place] [address]Jxqhtwxhtp - Chemistry and Chemistry - challengeon 04-29-2022 Glucose [Mass/Vol]139 mg/dLabove high jwvsjuicd93 - 99MPl[facility] GastroenterL[facility] Work Phone: No Panel Informationon 06-12-1405OJHumboldt County Memorial Hospital Work Phone: [email or web address]}[facility] GastroenterH[facility] Work Phone: [phone]-QofeHumboldt County Memorial Hospital Work Phone: Order Reconciliationon 51-45-7687Jefxu Reconciliation Page 1 Discharge Reconciliation Document Reconciliation [...] tablet 1 tab(s) orally once a dayNormalSt. [facility] Surgical Pathology Departmenton 79-48-6101EQM Surgical Pathology DepartmentName YUSEF CAR Pathologist: DU LUGO Date of Procedure: 04/29/2022 Date Received: 04/29/2022 Date Reported 05/05/2022 Submitting Physician: JEREMIAH MAGAÑA MD Location: [facility] Copy To/Referring/Attending: VANESSA STEELE MD Other [...] neuroendocrine tumor. Electronically Signed Out By DU LUGO/ELXIS By the signature on this report, the individual or group listed as making the Final Interpretation/Diagnosis certifies that they have reviewed this case. Diagnostic interpretation performed at [facility] [address] [facility] [place] [address] Clinical History: Follow up history of duodenal [...] negative controls which stained appropriately. [facility] Department of Pathology [address] [place] [address]ZyyxnbBRVail Health HospitalComment on above:Performed By: #### [facility] #### [facility] Surgical Pathology Department [address] [place] [address]Unzfu GI endoscopyon 37-74-6739Lfmfa GI endoscopyPATIENTNAME Patient Name: Yusef Car EXAMDATE Procedure Date: 04/29/2022 7:25 AM PATIENTID PATIENTACCOUNTNUM PATIENTDOB Date of : 1950 ADMITTYPE Admit Type: Outpatient PATIENTROOM Site: [facility] 1 ETHNICITY Ethnicity: Not or RACE Race: White PROVDR Attending MD: Jeremiah Magaña MD, [id number] ENDOPROCEDURENAME Procedure: Upper GI endoscopy INDICATION Indications: [...] (Doctor), Martha Kyle RN (Nurse), Moi Huff, Facility Administrator EDREFPROVIDER Referring: Vanessa Steele CURRENT_MEDS Medicines: See [...] diet. 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 All rights reserved. The codes documented in this report are preliminary and upon inspector plating review may be revised to meet current compliance requirements. ATTDRPART Attending Participa (more content not included)...[facility] HospitalGeneral/Metabolic - Establishedon 20-90-8712Iiyvbzl/Metabolic - EstablishedPatient Discussion/Summary - You received a [...] history, the 84 gene Multi-Cancer Panel from [employer] wasrecommended and ordered. - I called him [...] no significant history of cancer and/or Ashkenazi Yazdanism ancestry on their mother's side, no genetic [...] since our discussion today. Lulu Calle MS, [place] [facility] Licensed Genetic Counselor [facility] [phone]. Chief Complaint Patient seen for discussion of [...] 05 2021 3:54PM EST (Review) [facility] TouchworksOffice Visit (Genetics)on 20-50-4098Dtzvzj-up visitPatient Discussion/Summary Mr. CAR is a 71 [...] 84-gene Multi-Cancer + RNA analysis panel from [employer]. Our discussion is summarized below. We reviewed [...] affected individuals), and endocrine tumors of the jhctla-sczlyj-gkmajetlph (GEP) tract. 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 However, luxury insurances such as life insurance,nursing home care insurance, and/or private disability insurance companies [...] about hereditary ca (more content not included)... [facility] Hospitalworksinic Note - Heme Onc-Follow Up Visiton 08-60-5459Xoackw Note - Heme Onc-Follow Up VisitPatient Visit Information: Visit Type: Follow Up Visit History of Present Illness: ID Statement: Mr. Car is a 71 year old male Chief Complaint: Duodenal neuroendocrine tumor Interval History: 71 years old gentleman from [place], [place] who has been referred to me from [facility]. The patient complained of acid reflux for [...] Weights & Heights: Date: Weight/Scale Type:Height: 26-Aug-2021 13:32999 kg / standing .8 cm 20-May-2021 12:68048 kg / standing wegxh600.8 cm 04-Feb-2021 09:48887 kg / standing haptg413.8 cm Physical Exam: Constitutional: Appears well and [...] Transaminase, Serum 13 Complet (more content not included)...NormalBacharach Institute for RehabilitationClinic Note - Intakeon 08-26-0718Kcujag Note - IntakePatient Visit Information: Visit TypeFollow Up Visit Source of Informationpatient Accompanied byspouse Admission Information: Admission Since Last VisitYes Name of [facility] Admission [id number] Admission Reason/Detailssepsis and removal of gall bladder [...] 3 Weights & HeightsDate: Weight/Scale Type:Height: 20-May-2021 12:13944 kg / standing hciyy640.8 cm 04-Feb-2021 09:47310 kg / standing eiwnl639.8 cm 07-Jan-2021 13:75514 kg / standing xupcm875.8 cm SpO2 (%)95 % SpO2 Patient Onroom [...] Last Updated: 26-Aug-2021 13:50 by Latanya Bhat (PCNA)Madison HospitalCULTURE BLOODon 12-63-7591Vayaljwyskv examination of blood, cultureCulture Observations: Klebsiella pneumoniae [...] <=0.12 S F Trimethoprim/Sulfamethoxazole <=20 S FNormalThe Magruder HospitalComment on above:Performed By: #### CBCMAN #### [facility] [address] [place] [address] Dr. Freda Purvis AUTO DIFFon 52-08-9764IOGU #0.0 103/ulNormal0.0-0.1[facility] HospitalComment on above:Performed By: #### POCGLUC #### [facility] [address] [place] [address] José Luis KarenBasophils/100 WBC (Bld)0.1 %Critically low0.2-2.0The Magruder HospitalComment on above:Performed By: #### POCGLUC #### [facility] [address] [place] [address] José Luis KarenEO #0.0 103/ulNormal0.0-0.7The Magruder HospitalComment on above: Performed By: #### POCGLUC #### [facility] [address] [place] [address] José Luis KarenEosinophils/100 WBC (Bld)0.0 %Critically low0.9-7.0The Magruder HospitalComment on above:Performed By: #### POCGLUC #### [facility] [address] [place] [address] José Luis KarenErythrocyte distribution width (RBC) [Ratio]15.1 %Critically high 11.0-15.0The [facility]uder HospitalComment on above:Performed By: #### POCGLUC #### [facility] [address] [place] [address] José Luis KarenHematocrit (Bld) [Volume fraction]34.7 %Critically low42.0-54.0The [facility] HospitalComment on above:Performed By: #### POCGLUC #### [facility] [address] [place] [address] José Luis KarenHemoglobin (Bld) [Mass/Vol]10.9 g/dLCritically low14.0-18.0The [facility] HospitalComment on above:Performed By: #### POCGLUC #### [facility] [address] [place] [address] José Luis KarenIG #0.04 10e3/ulCritically high0.00-0.03The [facility] HospitalComment on above:Performed By: #### POCGLUC #### [facility] [address] [place] [address] José Luis KarenIG %0.4 %Normal0.0-0.5The [facility] HospitalComment on above: Performed By: #### POCGLUC #### [facility] [address] [place] [address] José Luis KarenLYMPH #0.5 103/ulCritically low1.2-3.8The [facility] HospitalComment on above:Performed By: #### POCGLUC #### [facility] [address] [place] [address] José Luis KarenLymphocytes/100 WBC (Bld)5.5 %Critically low20.5-60.0The [facility] HospitalComment on above:Performed By: #### POCGLUC #### [facility] [address] [place] [address] José Luis KarenMANUAL DIFF REQNONormalThe [facility] HospitalComment on above: Performed By: #### POCGLUC #### [facility] [address] [place] [address] José Luis KarenH (RBC) [Entitic mass]28.2 odOcqboi19.9-34.0[facility] Comment on above:Performed By: #### POCGLUC #### [facility] [address] [place] [address] José Luis KarenMCHC (RBC) [Mass/Vol]31.4 g/yDMdmwxc39.9-35.2[facility] Comment on above:Performed By: #### POCGLUC #### [facility] [address] [place] [address] José Luis KarjessikaMCV (RBC) [Entitic vol]89.9 kYWivdgy40.0-94.0[facility] Comment on above:Performed By: #### POCGLUC #### [facility] [address] [place] [address] José Luis KarenMONO #0.9 103/ulCritically high0.3-0.8The [facility] HospitalComment on above:Performed By: #### POCGLUC #### [facility] [address] [place] [address] José Luis KarenMonocytes/100 WBC (Bld)9.4 %Normal1.7-12.0[facility] Comment on above:Performed By: #### POCGLUC #### [facility] [address] [place] [address] José Luis KarenNEUT #8.1 103/ulCritically high1.4-6.5The [facility] HospitalComment on above:Performed By: #### POCGLUC #### [facility] [address] [address] José Luis KarenNeutrophils/100 WBC (Bld)84.6 %Critically high43.0-75.0The [facility] HospitalComment on above:Performed By: #### POCGLUC #### [facility] [address] [place] [address] José Luis KarenPlatelet mean volume (Bld) [Entitic vol]10.5 fLNormal9.5-13.5The [facility] HospitalComment on above:Performed By: #### POCGLUC #### [facility] [address] [place] [address] José Luis VnlkzAJI768 103/uxEysfgq916-507Pyj [facility] HospitalComment on above: Performed By: #### POCGLUC #### [facility] [address] [place] [address] José Luis KarenRBC3.86 106/ulCritically low4.70-6.10The [facility] HospitalComment on above:Performed By: #### POCGLUC #### [facility] [address] [place] [address] José Luis KarenWBC9.6 103/ulNormal4.0-11.0The [facility] HospitalComment on above: Performed By: #### POCGLUC #### [facility] [address] [place] [address] José Luis KarenCULTURE BLOODon 22-08-1419Hncqoutjino examination of blood, culture Culture Observations: NO GROWTH AT 5 DAYS.NormalThe [facility] HospitalComment on above:Performed By: #### CBCMAN #### [facility] [address] [place] [address] Dr. Freda WaynePOINT OF CARE GLUCOSEon 01-79-6206[place]udhkie [Mass/Vol]192 mg/dL Critically fpob15-855Uab [facility] HospitalCompontiac [facility] hospital on above:Performed By: #### POCGLUC #### [facility] [address] [place] [address] Dr. Freda WaynePROF 14(COMP METB)on 52-75-4640Pbnbglm [Mass/Vol]2.6 g/dL Critically low3.5-5.0The [facility] HospitalComment on above:Performed By: #### POCGLUC #### [facility] [address] [id number] José Luis KarenAlbumin/Globulin [Mass ratio]0.7 {ratio}NormalCleveland Clinic [facility]view Hospital Comment on above:Performed By: #### POCGLUC #### [facility] [address] [address] José Luis KarenALP [Catalytic activity/Vol]233 U/LCritically dwai89-231Cuu [facility] HospitalComment on above:Performed By: #### POCGLUC #### [facility] [address] [address] José Luis KarenALT [Catalytic activity/Vol]103 U/LCritically rwnl60-76Ltc [facility] HospitalComment on above:Performed By: #### POCGLUC #### [facility] [address] [address] José Luis KarenAnion gap [Moles/Vol]12.2 mmol/LNormalThe [facility] HospitalComment on above:Performed By: #### POCGLUC #### [facility] [address] [address] José Luis KarenAST [Catalytic activity/Vol]44 U/AChjsuf73-14XgiC[facility] Clinic [facility] Hospital Comment on above:Performed By: #### POCGLUC #### [facility] [address] [address] José Luis KarenBilirubin [Mass/Vol]0.4 mg/dLNormal0.2-1.3TGerman Hospital Comment on above:Performed By: #### POCGLUC #### [facility] [address] [place] [address] José Luis KarenCalcium [Mass/Vol]9.0 mg/dLNormal8.4-10.2[facility] Comment on above:Performed By: #### POCGLUC #### [facility] [address] [address] Joés Luis KarenChloride [Moles/Vol]102 mmol/WHnkvca68-911TscCleveland Clinic Fairview Hospital Comment on above:Performed By: #### POCGLUC #### [facility] [address] [address] José Luis KarenCO2 [Moles/Vol]26.9 mmol/VYbttzx19.0-30.0[facility] Comment on above:Performed By: #### POCGLUC #### [facility] [address] [address] José Luis KarenCreatinine [Mass/Vol]1.22 mg/dLNormal0.66-1.25The [facility] Comment on above:Performed By: #### POCGLUC #### [facility] [address] [address] José Luis KarenEGFR-AF COMORAN>60Normal>=60[facility] HospitalComment on above: Performed By: #### POCGLUC #### [facility] [address] [address] José Luis KarenEGFR-NON AF TYHSAIKZ95 mL/min/1.07j7Oyrxkgcklp low>=60The [facility] HospitalComment on above:Performed By: #### POCGLUC #### [facility] [address] [address] José Luis KarenGlobulin (S) [Mass/Vol]3.6 g/dLNormalThTriHealth McCullough-Hyde Memorial HospitalComment on above:Performed By: #### POCGLUC #### [facility] [address] [address] José Luis KarenGlucose [Mass/Vol]152 mg/dLCritically jufe60-296Jjt [facility] HospitalComment on above:Performed By: #### POCGLUC #### [facility] [address] [address] José Luis KarenPotassium [Moles/Vol]4.1 mmol/LNormal3.4-5.0[facility] Comment on above:Performed By: #### POCGLUC #### [facility] [address] [address] José Luis KarenProtein [Mass/Vol]6.2 g/dLNormal6.1-8.2[facility] HospitalComment on above:Performed By: #### POCGLUC #### [facility] [address] [address] José Luis KarenSodium [Moles/Vol]137 mmol/TKamvoq260-756Dac [facility] Comment on above:Performed By: #### POCGLUC #### [facility] [address] [place] [address] José Luis KarenUrea nitrogen [Mass/Vol]12.0 mg/dLNormal9.0-20.0The [facility] HospitalComment on above:Performed By: #### POCGLUC #### [facility] [address] [place] [address] José Luis KarenUrea nitrogen/Creatinine [Mass ratio]9.8 mg/mgNormalThe [facility] HospitalComment on above:Performed By: #### POCGLUC #### [facility] [address] [place] [address] José Luis KarenCBC AUTO DIFFon [id number] #0.0 103/ulNormal0.0-0.1The [facility] HospitalComment on above:Performed By: #### POCGLUC #### [facility] [address] [place] [address] Dr. Freda WayneBasophils/100 WBC (Bld)0.2 %Normal0.2-2.0The [facility] Comment on above:Performed By: #### POCGLUC #### [facility] [address] [place] [address] Dr. Freda Velasco #0.0 103/ulNormal0.0-0.7The [facility] HospitalComment on above: Performed By: #### POCGLUC #### [facility] [address] [place] [address] Dr. Freda Bergmanosinophils/100 WBC (Bld)0.4 %Critically low0.9-7.0The [facility] HospitalComment on above:Performed By: #### POCGLUC #### [facility] [address] [place] [address] Dr. Freda Bergmanrythrocyte distribution width (RBC) [Ratio]15.4 %Critically high 11.0-15.0The [facility] HospitalComment on above:Performed By: #### POCGLUC #### [facility] [address] [address] [address] Freda Bryantatocrit (Bld) [Volume fraction]35.5 %Critically low42.0-54.0 The [facility] HospitalComment on above:Performed By: #### POCGLUC #### [facility] [address] [place] [address] Dr. Freda WayneHemoglobin (Bld) [Mass/Vol]11.5 g/dLCritically low14.0-18.0[facility] HospitalComment on above:Performed By: #### POCGLUC #### [facility] [address] [place] [address] Dr. Freda Yancey #0.04 10e3/ulCritically high0.00-0.03[facility] Comment on above:Performed By: #### POCGLUC #### [facility] [address] [place] [address] Dr. Freda Yancey %0.4 %Normal0.0-0.5The [facility] HospitalComment on above: Performed By: #### POCGLUC #### [facility] [address] [place] [address] Dr. Freda Rasheed #0.7 103/ulCritically low1.2-3.8The [facility] Comment on above:Performed By: #### POCGLUC #### [facility] [address] [place] [address] Dr. Freda Castanedahocytes/100 WBC (Bld)7.4 %Critically low20.5-60.0[facility] HospitalComment on above:Performed By: #### POCGLUC #### [facility] [address] [place] [address] Dr. Freda ChaseUAL DIFF REQNONormalThe [facility] HospitalComment on above: Performed By: #### POCGLUC #### [facility] [address] [place] [address] Dr. Freda Castro (RBC) [Entitic mass]28.8 loTlmshd86.9-34.0The [facility] HospitalComment on above:Performed By: #### POCGLUC #### [facility] [address] [place] [address] Dr. Freda Land (RBC) [Mass/Vol]32.4 g/cUJmyequ46.9-35.2The [facility] HospitalComment on above:Performed By: #### POCGLUC #### [facility] [address] [place] [address] Dr. Freda Land (RBC) [Entitic vol]89.0 vFBxkjhp67.0-94.0The [facility] HospitalComment on above:Performed By: #### POCGLUC #### [facility] [address] [place] [address] Dr. Freda Martinez #1.1 103/ulCritically high0.3-0.8The [facility] Comment on above:Performed By: #### POCGLUC #### [facility] [address] [place] [address] Dr. Freda Friedocytes/100 WBC (Bld)10.5 %Normal1.7-12.0The [facility] Comment on above:Performed By: #### POCGLUC #### [facility] [address] [place] [address] Dr. Freda Deshpande #8.2 103/ulCritically high1.4-6.5The [facility] Comment on above:Performed By: #### POCGLUC #### [facility] [address] [place] [address] Dr. Freda Yanophils/100 WBC (Bld)81.1 %Critically high43.0-75.0The [facility] HospitalComment on above:Performed By: #### POCGLUC #### [facility] [address] [place] [address] Dr. Freda Haywoodlet mean volume (Bld) [Entitic vol]10.4 fLNormal9.5-13.5The [facility] HospitalComment on above:Performed By: #### POCGLUC #### [facility] [address] [address] [address] Freda WaynePLT262 103/dbYakyph133-394Ooi [facility] HospitalComment on above: Performed By: #### POCGLUC #### [facility] [address] [address] [address] Freda WayneRBC3.99 106/ulCritically low4.70-6.10The [facility] HospitalComment on above:Performed By: #### POCGLUC #### [facility] [address] [address] [address] Freda WayneWBC10.1 103/ulNormal4.0-11.0The [facility] HospitalComment on above:Performed By: #### POCGLUC #### [facility] [address] [place] [address] Dr. Freda WayneLAKEWOOD [facility] GLUCOSEon 44-64-9402Ihatzlk [Mass/Vol]208 mg/dL Critically zxch87-751Ikf [facility] HospitalComment on above:Performed By: #### POCGLUC #### [facility] [address] [place] [address] Dr. Freda WayneGlucose [Mass/Vol]188 mg/dLCritically tiol44-753XcwCleveland Clinic Fairview HospitalComment on above:Performed By: #### POCGLUC #### [facility] [address] [place] [address] Dr. Freda WayneGlucose [Mass/Vol]143 mg/dLCritically fytu19-985Waj [facility] HospitalComment on above:Performed By: #### POCGLUC #### [facility] [address] [place] [address] José Luis KarenPROF 14(COMP METB)on 59-51-3533Dhqlxav [Mass/Vol]2.8 g/dLCritically low3.5-5.0The [facility] HospitalComment on above:Performed By: #### POCGLUC #### [facility] [address] [place] [address] José Luis KarenAlbumin/Globulin [Mass ratio]0.8 {ratio}NormalThe [facility] Comment on above:Performed By: #### POCGLUC #### [facility] [address] [address] José Luis KarenALP [Catalytic activity/Vol]126 U/FFcukjn24-932VauCleveland Clinic [facility] Hospital Comment on above:Performed By: #### POCGLUC #### [facility] [address] [address] José Luis KarenALT [Catalytic activity/Vol]109 U/LCritically gkra29-84Xjv [facility] HospitalComment on above:Performed By: #### POCGLUC #### [facility] [address] [address] José Luis KarenAnion gap [Moles/Vol]14.4 mmol/LNormalThe [facility] HospitalComment on above:Performed By: #### POCGLUC #### [facility] [address] [address] José Luis KarenAST [Catalytic activity/Vol]42 U/EZnfxjk20-73SqbCleveland Clinic [facility] Hospital Comment on above:Performed By: #### POCGLUC #### [facility] [address] [address] José Luis KarenBilirubin [Mass/Vol]0.7 mg/dLNormal0.2-1.3TGerman Hospital Comment on above:Performed By: #### POCGLUC #### [facility] [address] [place] [address] José Luis KarenCalcium [Mass/Vol]8.7 mg/dLNormal8.4-10.2[facility] Comment on above:Performed By: #### POCGLUC #### [facility] [address] [address] José Luis KarenChloride [Moles/Vol]100 mmol/XAcnquf65-816BamCleveland Clinic Fairview Hospital Comment on above:Performed By: #### POCGLUC #### [facility] [address] [address] José Luis KarenCO2 [Moles/Vol]26.1 mmol/UDvliol30.0-30.0[facility] Comment on above:Performed By: #### POCGLUC #### [facility] [address] [place] [address] José Luis KarenCreatinine [Mass/Vol]1.23 mg/dLNormal0.66-1.25The [facility] Comment on above:Performed By: #### POCGLUC #### [facility] [address] [place] [address] José Luis KarenEGFR-AF COMORAN>60Normal>=60The [facility] HospitalComment on above: Performed By: #### POCGLUC #### [facility] [address] [address] José Luis KarenEGFR-NON AF QQEKMNSI56 mL/min/1.65y7Yaezfhogar low>=60The [facility] HospitalComment on above:Performed By: #### POCGLUC #### [facility] [address] [place] [address] José Luis KarenGlobulin (S) [Mass/Vol]3.5 g/dLNormalThTriHealth McCullough-Hyde Memorial HospitalComment on above:Performed By: #### POCGLUC #### [facility] [address] [place] [address] José Luis KarenGlucose [Mass/Vol]139 mg/dLCritically wiaq89-013PauCleveland Clinic Fairview HospitalComment on above:Performed By: #### POCGLUC #### [facility] [address] [place] [address] José Luis KarenPotassium [Moles/Vol]3.5 mmol/LNormal3.4-5.0[facility] Comment on above:Performed By: #### POCGLUC #### [facility] [address] [place] [address] José Luis KarenProtein [Mass/Vol]6.3 g/dLNormal6.1-8.2[facility] HospitalComment on above:Performed By: #### POCGLUC #### [facility] [address] [place] [address] José Luis KarenSodium [Moles/Vol]137 mmol/FYevvlo897-359NyeCleveland Clinic Fairview Hospital Comment on above:Performed By: #### POCGLUC #### [facility] [address] [place] [address] José Luis KarenUrea nitrogen [Mass/Vol]12.0 mg/dLNormal9.0-20.0The [facility] HospitalComment on above:Performed By: #### POCGLUC #### [facility] [address] [place] [address] José Luis KarenUrea nitrogen/Creatinine [Mass ratio]9.8 mg/mgNormalThe [facility] HospitalComment on above:Performed By: #### POCGLUC #### [facility] [address] [place] [address] José Luis KarenCBC W MANUAL DIFFon [id number] LYMPH #NormalThe [facility] HospitalComment on above:Performed By: #### CBCMAN #### [facility] [address] [place] [address] Dr. Freda WayneATYPICAL LYMPH %NormalThe [facility] HospitalComment on above: Performed By: #### CBCMAN #### [facility] [address] [place] [address] Dr. Freda Ventura #0.3 103/ulNormal0.0-0.3The [facility] HospitalComment on above:Performed By: #### MERIMAN #### [facility] [address] [place] [address] Dr. Freda Ventura %3 %Normal0-5The [facility] HospitalComment on above:Performed By: #### MERIMAN #### [facility] [address] [place] [address] Dr. Freda Riojas #0.00 103/ulNormal0.00-0.10The [facility] HospitalComment on above:Performed By: #### CBCMAN #### [facility] [address] [place] [address] Dr. Freda Riojas %0.0 %Critically low0.2-2.0The [facility] HospitalComment on above:Performed By: #### CBCMAN #### [facility] [address] [place] [address] Dr. Freda Mauro #NormalThe [facility] HospitalComment on above:Performed By: #### CBCMAN #### [facility] [address] [address] [address] Freda WayneBLAST %NormalThe [facility] HospitalComment on above:Performed By: #### TAMIKO #### [facility] [address] [address] [address] Freda WayneCORRECTED WBCNormal4.0-11.0The [facility] HospitalComment on above: Performed By: #### TAMIKO #### [facility] [address] [address] [address] Freda Nuñez #0.00 103/ulNormal0.00-0.70The [facility] HospitalComment on above:Performed By: #### TAMIKO #### [facility] [address] [place] [address] Dr. Freda Nuñez%0.0 %Critically low0.9-7.0The [facility] HospitalComment on above:Performed By: #### TAMIKO #### [facility] [address] [place] [address] Dr. Freda WayneHCT35.4 %Critically low42.0-54.0The [facility] HospitalComment on above:Performed By: #### TAMIKO #### [facility] [address] [place] [address] Dr. Freda WayneHGB11.3 g/dlCritically low14.0-18.0The [facility] HospitalComment on above:Performed By: #### TAMIKO #### [facility] [address] [place] [address] Dr. Freda Langford #0.65 103/ulCritically low1.20-3.80The [facility] Comment on above:Performed By: #### TAMIKO #### [facility] [address] [place] [address] Dr. Freda Langford%6.0 %Critically low20.5-60.0The [facility] HospitalComment on above:Performed By: #### TAMIKO #### [facility] [address] [place] [address] Dr. Freda WayneMCH28.8 leHhqxsp41.9-34.0The [facility] HospitalComment on above: Performed By: #### TAMIKO #### [facility] [address] [place] [address] Dr. Freda LandHC31.9 g/jrJturbj88.9-35.2The [facility] HospitalComment on above:Performed By: #### TAMIKO #### [facility] [address] [place] [address] Dr. Freda LandV90.3 wLKbtmod68.0-94.0The [facility] HospitalComment on above: Performed By: #### TAMIKO #### [facility] [address] [place] [address] Dr. Freda Gillette #NormalThe [facility] HospitalComment on above: Performed By: #### TAMIKO #### [facility] [address] [place] [address] Dr. Freda GudinoOCYTE %NormalThe [facility] HospitalComment on above: Performed By: #### TAMIKO #### [facility] [address] [place] [address] Dr. Freda Antonio#0.76 103/ulNormal0.30-0.80The [facility] HospitalComment on above:Performed By: #### TAMIKO #### [facility] [address] [place] [address] Dr. Freda Antonio%7.0 %Normal1.7-12.0The [facility] HospitalComment on above: Performed By: #### CBCJOE #### [facility] [address] [place] [address] Dr. Freda HassanV10.2 fLNormal9.5-13.5The [facility] HospitalComment on above: Performed By: #### CBCJOE #### [facility] [address] [place] [address] Dr. Freda Chen #NormalThe [facility] HospitalComment on above:Performed By: #### TAMIKO #### [facility] [address] [place] [address] Dr. Freda EllisOCYTE %NormalThe [facility] HospitalComment on above:Performed By: #### TAMIKO #### [facility] [address] [address] [address] Freda WayneNRBCNormalThe [facility] HospitalComment on above:Performed By: #### TAMIKO #### [facility] [address] [address] [address] Freda WaynePLT275 103/bnLcqawp698-256Lwr [facility] HospitalComment on above: Performed By: #### TAMIKO #### [facility] [address] [address] [address] Freda WayneRBC3.92 106/ulCritically low4.70-6.10The [facility] HospitalComment on above:Performed By: #### TAMIKO #### [facility] [address] [address] [address] Freda PalacioW15.5 %Critically high11.0-15.0The [facility] HospitalComment on above:Performed By: #### TAMIKO #### [facility] [address] [address] [address] Freda Burdick #9.16 103/ulCritically high1.40-6.50The [facility] on above:Performed By: #### TAMIKO #### [facility] [address] [address] [address] Freda Burdick %84.0 %Critically high43.0-75.0The [facility] HospitalComment on above:Performed By: #### TAMIKO #### [facility] [address] [address] [address] Freda WayneWBC10.9 103/ulNormal4.0-11.0The [facility] HospitalComment on above:Performed By: #### TAMIKO #### [facility] [address] [address] [address] Freda Ontiveros HEPATOBILIARY SCANon [id number] HEPATOBILIARY SCANEXAM: NM HEPATOBILIARY SCAN HISTORY: Acute [...] Electronically authenticated by: CINDI RYAN Date: 2021-06-04 00:06[facility] HospitalPOINT OF CARE GLUCOSEon 76-79-7147Cepgzzn [Mass/Vol]219 mg/dL Critically xbvc27-413Eqc [facility] HospitalComment on above:Performed By: #### POCGLUC #### [facility] [address] [place] [address] José Luis KarenGlucose [Mass/Vol]134 mg/dLCritically udvq59-164Gyf [facility] HospitalComment on above:Performed By: #### POCGLUC #### [facility] [address] [place] [address] Dr. Freda WayneGlucose [Mass/Vol]196 mg/dLCritically nqzb03-806FzwCleveland Clinic Fairview HospitalCompontiac general hospital on above:Performed By: #### POCGLUC #### [facility] [address] [place] [address] José Luis KarenPROF 14(COMP METB)on 41-22-6672Rnjogpe [Mass/Vol]2.8 g/dLCritically low3.5-5.0The [facility]ruder HospitalComment on above:Performed By: #### CMP #### [facility] [address] [place] [address] Dr. Freda WayneAlbumin/Globulin [Mass ratio]0.8 {ratio}NormalThe [facility] on above:Performed By: #### CMP #### [facility] [address] [place] [address] Dr. Freda WayneALP [Catalytic activity/Vol]131 U/LCritically fucj91-419Qsx [facility] Systemment on above:Performed By: #### CMP #### [facility] [address] [address] [address] Freda PearsonT [Catalytic activity/Vol]153 U/LCritically nqhe24-38Iib [facility] HospitalComment on above:Performed By: #### CMP #### [facility] [address] [address] [address] Freda WayneAnion gap [Moles/Vol]12.6 mmol/LNormalThe [facility] Comment on above:Performed By: #### CMP #### [facility] [address] [address] [address] Freda WayneAST [Catalytic activity/Vol]79 U/LCritically oiow68-11Jkt [facility] HospitalComment on above:Performed By: #### CMP #### [facility] [address] [address] [address] Freda WayneBilirubin [Mass/Vol]0.7 mg/dLNormal0.2-1.3TGerman [facility] Comment on above:Performed By: #### CMP #### [facility] [address] [address] [address] Freda WayneCalcium [Mass/Vol]8.6 mg/dLNormal8.4-10.2[facility] Comment on above:Performed By: #### CMP #### [facility] [address] [place] [address] Dr. Freda WayneChloride [Moles/Vol]104 mmol/SScxtgp23-338Tng [facility] Comment on above:Performed By: #### CMP #### [facility] [address] [address] [address] Freda WayneCO2 [Moles/Vol]25.2 mmol/HYmnfqx79.0-30.0[facility] Comment on above:Performed By: #### CMP #### [facility] [address] [address] [address] Freda WayneCreatinine [Mass/Vol]1.30 mg/dLCritically high0.66-1.25The [facility] HospitalComment on above:Performed By: #### CMP #### [facility] [address] [address] [address] Freda BergmanGFR-AF COMORAN>60Normal>=60The [facility] HospitalComment on above:Performed By: #### CMP #### [facility] [address] [address] [address] Freda BergmanGFR-NON AF WQIVAOVF97 mL/min/1.18j3Xitxlpnezu low>=60The [facility] HospitalComment on above:Performed By: #### CMP #### [facility] [address] [address] [address] Frdea WayneGlobulin (S) [Mass/Vol]3.3 g/dLNormalThe [facility] HospitalComment on above:Performed By: #### CMP #### [facility] [address] [address] [address] Freda WayneGlucose [Mass/Vol]141 mg/dLCritically fils79-957Akt [facility] HospitalComment on above:Performed By: #### CMP #### [facility] [address] [address] [address] Freda WaynePotassium [Moles/Vol]3.8 mmol/LNormal3.4-5.0The [facility] Comment on above:Performed By: #### CMP #### [facility] [address] [address] [address] Freda WayneProtein [Mass/Vol]6.1 g/dLNormal6.1-8.2The [facility] Comment on above:Performed By: #### CMP #### [facility] [address] [address] [address] Freda WayneSodium [Moles/Vol]138 mmol/QPsuhpc247-412LgdC[facility] Clinic [facility] Comment on above:Performed By: #### CMP #### [facility] [address] [address] [address] Freda WayneUrea nitrogen [Mass/Vol]13.0 mg/dLNormal9.0-20.0The [facility] HospitalComment on above:Performed By: #### CMP #### [facility] [address] [address] [address] Freda Fernandez nitrogen/Creatinine [Mass ratio]10.0 mg/mgProMedica Fostoria Community HospitalComment on above:Performed By: #### CMP #### [facility] [address] [place] [address] Dr. Freda Pérez CULTURE ID PANELon 06-03-2021. baumanniiNot detectedNoal [facility] HospitalComment on above:Performed By: #### BCID #### [facility] [address] [place] [address] Dr. Freda Dougherty CONTROLSPASSEDProMedica Fostoria Community HospitalCompontiac general hospital on above: Performed By: #### BCID #### [facility] [address] [place] [address] Dr. Freda DoughertyBTHDBLMICKI CULTURE BOTTLE INFORMATIONProMedica Fostoria Community HospitalCompontiac general hospital on above:Performed By: #### BCID #### [facility] [address] [place] [address] Dr. Freda DoughertyKfjsoJXGXFQ2RSSRIFUBYWMON RESISTANCE [facility] Comment on above:Performed By: #### BCID #### [facility] [address] [place] [address] Dr. Freda DoughertyHD2SEE BELOWProMedica Fostoria Community HospitalCompontiac general hospital on above: Result Comment: KPC- carbapenem resistance gene, mecA- methecillin resistance gene, van A/B- vancomycin resistance gene Note: Antimicrobial resitance can occur via multiple mechanisms. A Not Detectedresult for the FilmArray antomicrobial resistance gene assays does not indicate antimicrobial suscep tibility. Subculturing is required for specis identificationand susceptibility testing of isolates.Performed By: #### BCID #### [facility] [address] [place] [address] Dr. Freda DoughertyTshlvWSPNBH0TuyrhpxdAfrqeyIhf [facility] HospitalComment on above: Performed By: #### BCID #### [facility] [address] [place] [address] Dr. Freda DoughertyZrxlnNSZGNJ7ElzhrfjcArimcyZdv [facility] HospitalComment on above: Performed By: #### BCID #### [facility] [address] [address] [address] Freda DoughertyBxktcYVTFUI6LKWNNTdgpvgNdrGlenbeigh HospitalCompontiac general hospital on above:Performed By: #### BCID #### [facility] [address] [address] [address] Freda DoughertyHD6SEE BELOWProMedica Fostoria Community HospitalComment on above: Result Comment: Note: All genus and species BCID FilmArray results will be verified post subculturing via Maldi-Tof MS testing methodology.Performed By: #### BCID #### [facility] [address] [address] [address] Freda Jay Set:Set 1NBlanchard Valley Health System on above: Performed By: #### BCID #### [facility] [address] [place] [address] Dr. Freda Jay:AerobicProMedica Fostoria Community HospitalComment on above: Performed By: #### BCID #### [facility] [address] [address] [address] Freda Mariscal albicansNot detectedProMedica Fostoria Community HospitalCompontiac general hospital on above:Performed By: #### BCID #### [facility] [address] [address] [address] Freda Mariscal glabrataNot [facility] HospitalCompontiac general hospital on above:Performed By: #### BCID #### [facility] [address] [address] [address] Freda Mariscal KruseiNot detectedProMedica Fostoria Community HospitalComment on above:Performed By: #### BCID #### [facility] [address] [address] [address] Freda Mariscal ParapsilosisNot [facility] Comment on above:Performed By: #### BCID #### [facility] [address] [address] [address] Yilan ChangCandida TropicalisNot detectedGrant Hospital HospitalComment on above:Performed By: #### BCID #### [facility] [address] [address] [address] Freda Bergman. Cloacae complexNot detectedProMedica Fostoria Community HospitalComment on above:Performed By: #### BCID #### [facility] [address] [address] [address] Freda ReillybacteriaceaeDetectedCritically abnormalCleveland Clinic Fairview HospitalComment on above:Performed By: #### BCID #### [facility] [address] [address] [address] Freda BergmannterococcusNot detectedProMedica Fostoria Community HospitalComment on above:Performed By: #### BCID #### [facility] [address] [address] [address] Freda Chaviracheria coliNot detectedGrant Hospital HospitalComment on above:Performed By: #### BCID #### [facility] [address] [address] [address] Freda Natarajan. oxytocaNot detectedProMedica Fostoria Community HospitalComment on above:Performed By: #### BCID #### [facility] [address] [address] [address] Freda West pneumoniaeDetectedCritically abnormalC[facility] Comment on above:Performed By: #### BCID #### [facility] [address] [address] [address] Freda WayneKPC Resistant GeneNot detectedGrant Hospital HospitalComment on above:Performed By: #### BCID #### [facility] [address] [address] [address] Freda Park. monocytogenesNot detectedGrant Hospital HospitalComment on above:Performed By: #### BCID #### [facility] [address] [address] [address] Freda WaynemecA Resistant GeneNot ApplicableProMedica Fostoria Community Hospital Comment on above:Performed By: #### BCID #### [facility] [address] [address] [address] Freda WayneProteusNot detectedNoHarrison Community Hospital HospitalComment on above: Performed By: #### BCID #### [facility] [address] [address] [address] Freda Dykesd. aeruginosaNot detectedNoHarrison Community Hospital HospitalComment on above:Performed By: #### BCID #### [facility] [address] [address] [address] Freda Moreira marcescensNot detectedNoHarrison Community Hospital HospitalComment on above:Performed By: #### BCID #### [facility] [address] [address] [address] Freda Carlisle:left ACNKing's Daughters Medical Center Ohio HospitalComment on above:Performed By: #### BCID #### [facility] [address] [address] [address] Freda Barrera. aureusNot detectedNoHarrison Community Hospital HospitalComment on above:Performed By: #### BCID #### [facility] [address] [address] [address] Freda LarsenaphylococcusNot detectedGrant Hospital HospitalComment on above:Performed By: #### BCID #### [facility] [address] [address] [address] Freda Jarrell agalactiaeNot detectedGrant Hospital HospitalComment on above:Performed By: #### BCID #### [facility] [address] [address] [address] Freda Flores. pneumoniaeNot detectedNoHarrison Community Hospital HospitalComment on above:Performed By: #### BCID #### [facility] [address] [address] [address] Freda Jarrell pyogenesNot detectedGrant Hospital HospitalComment on above:Performed By: #### BCID #### [facility] [address] [address] [address] Freda FlorestococcusNot [facility] HospitalComment on above:Performed By: #### BCID #### [facility] [address] [place] [address] Dr. Freda Coto/Kate Hawkins [facility] on above:Performed By: #### BCID #### [facility] [address] [place] [address] Dr. Freda Romero W MANUAL DIFFon [id number] LYMPH #NormalSumma Health HospitalComment on above:Performed By: #### POCGLUC #### [facility] [address] [place] [address] José Luis KarenATYPICAL LYMPH %NormalThe [facility] HospitalComment on above: Performed By: #### POCGLUC #### [facility] [address] [place] [address] José Luis KarenBAND #Normal0.0-0.3The [facility] HospitalComment on above:Performed By: #### POCGLUC #### [facility] [address] [place] [address] José Luis KarenBAND %Normal0-5The [facility] HospitalComment on above:Performed By: #### POCGLUC #### [facility] [address] [place] [address] José Luis KarenBASOM #0.00 103/ulNormal0.00-0.10The [facility] HospitalComment on above:Performed By: #### POCGLUC #### [facility] [address] [place] [address] José Luis KarenBASOM %0.0 %Critically low0.2-2.0The [facility] HospitalComment on above:Performed By: #### POCGLUC #### [facility] [address] [place] [address] José Luis KarenBLAST #NormalSumma Health HospitalComment on above:Performed By: #### POCGLUC #### [facility] [address] [place] [address] José Luis KarenBLAST %NormalThe [facility] HospitalComment on above:Performed By: #### POCGLUC #### [facility] [address] [place] [address] José Luis KarenCORRECTED WBCNormal4.0-11.0The [facility] HospitalComment on above: Performed By: #### POCGLUC #### [facility] [address] [place] [address] José Luis KarenEOS #0.00 103/ulNormal0.00-0.70The [facility] HospitalComment on above:Performed By: #### POCGLUC #### [facility] [address] [place] [address] José Luis KarenEOS%0.0 %Critically low0.9-7.0The [facility] HospitalComment on above: Performed By: #### POCGLUC #### [facility] [address] [place] [address] José Luis IsnloIET87.0 %Critically low42.0-54.0The [facility] HospitalComment on above:Performed By: #### POCGLUC #### [facility] [address] [place] [address] José Luis JtipyFXX17.0 g/dlCritically low14.0-18.0The [facility] Systemment on above:Performed By: #### POCGLUC #### [facility] [address] [place] [address] José Luis KarenLYMPHM #0.18 103/ulCritically low1.20-3.80The [facility] Comment on above:Performed By: #### POCGLUC #### [facility] [address] [place] [address] José Luis KarenLYMPHM%1.0 %Critically low20.5-60.0The [facility] HospitalComment on above:Performed By: #### POCGLUC #### [facility] [address] [place] [address] José Luis GdfenCET37.6 dcLjchon02.9-34.0The [facility] HospitalComment on above: Performed By: #### POCGLUC #### [facility] [address] [place] [address] José Luis MathurCtuuvQVLJ93.7 g/dgVnowho58.9-35.2The [facility] HospitalComment on above: Performed By: #### POCGLUC #### [facility] [address] [place] [address] José Luis MathurenMCV90.1 fEClbthp38.0-94.0The [facility] HospitalComment on above: Performed By: #### POCGLUC #### [facility] [address] [place] [address] José Luis KarenMETAMYELOCYTE #NormalThe [facility] HospitalComment on above:Performed By: #### POCGLUC #### [facility] [address] [place] [address] José Luis KarenMETAMYELOCYTE %NormalThe [facility] HospitalComment on above:Performed By: #### POCGLUC #### [facility] [address] [place] [address] José Luis KarenMONOM#0.55 103/ulNormal0.30-0.80The [facility] HospitalComment on above:Performed By: #### POCGLUC #### [facility] [address] [place] [address] José Luis KarenMONOM%3.0 %Normal1.7-12.0The [facility] HospitalComment on above: Performed By: #### POCGLUC #### [facility] [address] [place] [address] José Luis OeakzVZS41.1 fLNormal9.5-13.5The [facility] HospitalComment on above: Performed By: #### POCGLUC #### [facility] [address] [place] [address] José Luis KarenMYELOCYTE #NormalThe [facility] HospitalComment on above:Performed By: #### POCGLUC #### [facility] [address] [place] [address] José Luis KarenMYELOCYTE %NormalThe [facility] HospitalComment on above:Performed By: #### POCGLUC #### [facility] [address] [place] [address] José Luis MathurenNRBCNormalThe [facility] HospitalComment on above:Performed By: #### POCGLUC #### [facility] [address] [place] [address] José Luis MathurKwtqeIHV693 103/mrBinero345-423Zdy [facility] HospitalComment on above: Performed By: #### POCGLUC #### [facility] [address] [place] [address] José Luis KarenRBC4.55 106/ulCritically low4.70-6.10The [facility] HospitalComment on above:Performed By: #### POCGLUC #### [facility] [address] [place] [address] José Luis MathurenRDW15.6 %Critically high11.0-15.0The [facility] HospitalComment on above:Performed By: #### POCGLUC #### [facility] [address] [place] [address] José Luis MathurenSEG #17.57 103/ulCritically high1.40-6.50The [facility] Comment on above:Performed By: #### POCGLUC #### [facility] [address] [place] [address] José Luis BarajasG %96.0 %Critically high43.0-75.0The [facility] HospitalComment on above:Performed By: #### POCGLUC #### [facility] [address] [place] [address] José Luis BeardWBC18.3 103/ulCritically high4.0-11.0The [facility] HospitalComment on above:Performed By: #### POCGLUC #### [facility] [address] [place] [address] José Luis MathurenCT ABD/PELV W CONon [id number] ABD/PELV W CONEXAMINATION: CT ABD/PELV W CON [...] authenticated by: CINDI SOMMER Date: 2021-06-03 14:15NormalThe [facility] HospitalCULTURE BLOODon [id number] examination of blood, cultureCulture Observations: NO GROWTH AT 5 DAYS.NormalThe [facility] HospitalComment on above:Performed By: #### BLDCX2 #### [facility] [address] [place] [address] Dr. Freda Gleason-19 PCR ([facility]VDBO[facility])on [id number]-CoV-2 (COVID-19) RNA SHRUTI+probe Ql (Unsp spec)Not detectedNormalNOT DETECTEDThe [facility] Comment on above:Result Comment: When diagnostic testing is negative, the possibility of a false negative should be considered in the context of a patient's recent exposures and the presence of clinical signs and symptoms consistent with SARS-CoV-2. This test is not yet approved or cleared by the [place] Food and Drug Administration (FDA). This test was developed by [facility], [place], [place]. The performance characteristics of this test were validated by [facility]. The results are not intended to be used as the sole means for clinical diagnosis or patient management decisions. [facility] is authorized under Clinical Laboratory Improvement [...] for this test is supported by the [place] of Health and Human Service's declaration that [...] longer be used).Performed By: #### CBCMAN #### [facility] [address] [place] [address] Dr. Freda Thompson URINE PROFILEon [id number] Ql (U)NegativeNormal NEGATIVECleveland Clinic Fairview HospitalComment on above:Performed By: #### POCGLUC #### [facility] [address] [place] [address] José Luis KarenClarity (U)CLEARNormalCLEARCleveland Clinic Fairview HospitalComment on above: Performed By: #### POCGLUC #### [facility] [address] [place] [address] José Luis KarenColor (U)YELLOWNormalYELLOWThe [facility] HospitalComment on above: Performed By: #### POCGLUC #### [facility] [address] [place] [address] José Luis KarenERUAHDA micrscopic examination will be performed if indicated.Normal The [facility] HospitalComment on above:Performed By: #### POCGLUC #### [facility] [address] [place] [address] José Luis KarenGlucose Ql (U)100 mg/dlAbnormalNEGATIVEThe [facility] HospitalComment on above:Performed By: #### POCGLUC #### [facility] [address] [place] [address] José Luis KarenHemoglobin Ql (U)NegativeNormalNEGATIVECleveland Clinic Fairview HospitalComment on above:Performed By: #### POCGLUC #### [facility] [address] [place] [address] José Luis KarenKetones Ql (U)NegativeNormalNEGATIVECleveland Clinic Fairview HospitalComment on above:Performed By: #### POCGLUC #### [facility] [address] [place] [address] José Luis KarenLEUKOCYTESNegativeNormalNEGATIVECleveland Clinic Fairview HospitalComment on above:Performed By: #### POCGLUC #### [facility] [address] [place] [address] José Luis KarenNitrite Ql (U)NegativeNormalNEGATIVECleveland Clinic Fairview HospitalComment on above:Performed By: #### POCGLUC #### [facility] [address] [place] [address] José Luis KarenpH (U)6.0 [pH]Normal5-9[facility] HospitalComment on above: Performed By: #### POCGLUC #### [facility] [address] [place] [address] José Luis KarenProtein (U) [Mass/Vol]30 mg/dLAbnormalNEGATIVE/ TRACEThe [facility] HospitalComment on above:Performed By: #### POCGLUC #### [facility] [address] [place] [address] José Luis KarenSPEC GRAVITY1.097Slgfjr7.005-<=1.025The [facility] HospitalComment on above:Performed By: #### POCGLUC #### [facility] [address] [place] [address] José Luis KarenUR MICRO INDINDICATEDNormalThe [facility] HospitalComment on above: Performed By: #### POCGLUC #### [facility] [address] [place] [address] José Luis KarenUrobilinogen Qn (U)1.0 {Bassem'U}/dLNormal0.2 - 1.0The [facility] HospitalComment on above:Performed By: #### POCGLUC #### [facility] [address] [place] [address] José Luis KarenLACTATE/LACTIC ACIDon 29-68-5568Fnqmizl [Moles/Vol]2.0 mmol/LNormal 0.7-2.0The [facility] HospitalComment on above:Performed By: #### POCGLUC #### [facility] [address] [place] [address] Dr. Freda WayneLIPASEon [id number] [Catalytic activity/Vol]207.0 U/LNormal 23.0-300.0The [facility] HospitalComment on above:Performed By: #### POCGLUC #### [facility] [address] [place] [address] Dr. Freda WaynePOINT OF CARE GLUCOSEon 23-98-9824Bellvqy [Mass/Vol]107 mg/dL Critically ffmc21-877Dve [facility] HospitalComment on above:Performed By: #### POCGLUC #### [facility] [address] [place] [address] José Luis KarenPROF 14(COMP METB)on 34-82-8627Keiqlnx [Mass/Vol]3.9 g/dLNormal 3.5-5.0The [facility] HospitalComment on above:Performed By: #### POCGLUC #### [facility] [address] [place] [address] Dr. Freda WayneAlbumin/Globulin [Mass ratio]1.1 {ratio}NormalThe [facility] HospitalComment on above:Performed By: #### POCGLUC #### [facility] [address] [place] [address] Dr. Freda Marcelo [Catalytic activity/Vol]181 U/LCritically bsbn25-246Occ [facility] HospitalComment on above:Performed By: #### POCGLUC #### [facility] [address] [place] [address] Dr. Freda Dao [Catalytic activity/Vol]196 U/LCritically kwuz95-24Hrs [facility] HospitalComment on above:Performed By: #### POCGLUC #### [facility] [address] [address] [address] Freda Busch gap [Moles/Vol]15.4 mmol/LNormalThe [facility] Comment on above:Performed By: #### POCGLUC #### [facility] [address] [address] [address] Freda WayneAST [Catalytic activity/Vol]217 U/LCritically oisk04-74Hyz [facility] HospitalComment on above:Performed By: #### POCGLUC #### [facility] [address] [address] [address] Freda WayneBilirubin [Mass/Vol]1.1 mg/dLNormal0.2-1.3TGerman Hospital Comment on above:Performed By: #### POCGLUC #### [facility] [address] [place] [address] Dr. Freda WayneCalcium [Mass/Vol]9.7 mg/dLNormal8.4-10.2[facility] Comment on above:Performed By: #### POCGLUC #### [facility] [address] [place] [address] Dr. Freda WayneChloride [Moles/Vol]101 mmol/RRsaqvy24-602QfsCleveland Clinic Fairview Hospital Comment on above:Performed By: #### POCGLUC #### [facility] [address] [place] [address] Dr. Freda WayneCO2 [Moles/Vol]24.4 mmol/RLjlfry68.0-30.0[facility] Comment on above:Performed By: #### POCGLUC #### [facility] [address] [place] [address] Dr. Freda WayneCreatinine [Mass/Vol]1.16 mg/dLNormal0.66-1.25The [facility] HospitalComment on above:Performed By: #### POCGLUC #### [facility] [address] [place] [address] Dr. Freda BergmanGFR-AF COMORAN>60Normal>=60The [facility] HospitalComment on above:Performed By: #### POCGLUC #### [facility] [address] [place], [place] [address] Dr. Freda BergmanGFR-NON AF COMORAN>60Normal>=60The [facility] HospitalComment on above:Performed By: #### POCGLUC #### [facility] [address] [address] Dr. Freda WayneGlobulin (S) [Mass/Vol]3.6 g/dLNormalThTriHealth McCullough-Hyde Memorial HospitalComment on above:Performed By: #### POCGLUC #### [facility] [address] [address] [address] Freda WayneGlucose [Mass/Vol]213 mg/dLCritically dddm70-241Zmz [facility] HospitalComment on above:Performed By: #### POCGLUC #### [facility] [address] [place] [address] Dr. Freda WaynePotassium [Moles/Vol]3.8 mmol/LNormal3.4-5.0[facility] Comment on above:Performed By: #### POCGLUC #### [facility] [address] [place] [address] Dr. Freda WayneProtein [Mass/Vol]7.5 g/dLNormal6.1-8.2[facility] Comment on above:Performed By: #### POCGLUC #### [facility] [address] [place] [address] Dr. Freda WayneSodium [Moles/Vol]137 mmol/GCokpuk531-365Ayx [facility] Comment on above:Performed By: #### POCGLUC #### [facility] [address] [place] [address] Dr. Freda WayneUrea nitrogen [Mass/Vol]16.0 mg/dLNormal9.0-20.0The [facility] HospitalComment on above:Performed By: #### POCGLUC #### [facility] [address] [place] [address] Dr. Freda Fernandez nitrogen/Creatinine [Mass ratio]13.8 mg/mgNormalThTriHealth McCullough-Hyde Memorial HospitalComment on above:Performed By: #### POCGLUC #### [facility] [address] [place] [address] Dr. Freda EliIMEreyna 84-64-2084WWA Coag (PPP) [Relative time]1.05 {INR} NormalCleveland Clinic Fairview HospitalComment on above:Performed By: #### PT, PTT #### [facility] [address] [place] [address] Dr. Freda Genao GUIDELINESSEE BELOWProMedica Fostoria Community HospitalComment on above:Result Comment: DESIRED INR: 2.0 - 3.0 CONDITIONS NOT LISTED BELOW 2.5 - 3.5 FOR PROSTHETIC HEART VALVE REPLACEMENT 2.5 - 3.5 RECURRENT THROMBOSIS Performed By: #### PT, PTT #### [facility] [address] [place] [address] Dr. Freda WaynePT Coag (PPP) [Time]11.3 sNormal9.0-11.6[facility] Comment on above:Performed By: #### PT, PTT #### [facility] [address] [place] [address] Dr. Freda Fitzgerald 01-29-7300tPZU Coag (Bld) [Time]28.2 qXbswtg40.3-36.2[facility] HospitalComment on above:Performed By: #### PT, PTT #### [facility] [address] [place] [address] Dr. Freda Marino, HIGH SENSITIVITYon 16-29-7091OBRMIJ97.8 pg/mLNormal 4.0-42.2[facility] HospitalComment on above:Result Comment: CUT-OFF POINTS HAVE BEEN ESTABLISHED BASED ON THE FOURTH UNIVERSAL DEFINITIONS OF MYOCARDIAL INFARCTION. THE UPPER REFERENCE LIMIT (URL) OF TROPONIN, DEFINED THE 99TH PERCENTILE OF cTnI DISTRIBUTION IN A REFERENCE POPULATION, HAS BEEN CONFIRMED THE DECISION THRESHOLD FOR SD DIAGNOSIS.Performed By: #### POCGLUC #### [facility] [address] [place] [address] Dr. Freda Mujica MICROSCOPIC ONLYon 01-53-8282JEPUKOVMYJHA SEENNormalNONE SEENCleveland Clinic Fairview HospitalComment on above:Performed By: #### POCGLUC #### [facility] [address] [place] [address] José Luis KarenBacteria identified Cx Nom (U)NOT INDICATEDNormalThe [facility] HospitalComment on above:Performed By: #### POCGLUC #### [facility] [address] [place] [address] José Luis KarenCASTNONE SEENNormalNONE SEENCleveland Clinic Fairview HospitalCompontiac general hospital on above: Performed By: #### POCGLUC #### [facility] [address] [place] [address] José Luis KarenCrystals LM Nom (Urine sed)NONE SEENNormalNONE SEENThe [facility] HospitalComment on above:Performed By: #### POCGLUC #### [facility] [address] [place] [address] José Luis KarenEpithelial cells LM Ql (Urine sed)RARENormalNONE SEEN /RAREThe [facility] HospitalComment on above:Performed By: #### POCGLUC #### [facility] [address] [place] [address] José Luis KarenMUCOUSTRACEAbnormalNONE SEENCleveland Clinic Fairview HospitalCompontiac general hospital on above: Performed By: #### POCGLUC #### [facility] [address] [place] [address] José Luis TieqfUUS6-6Vxhbhi1-8[facility] HospitalCompontiac general hospital on above:Performed By: #### POCGLUC #### [facility] [address] [place] [address] José Luis KarenWBC0-2AbnormalNONE SEENCleveland Clinic Fairview HospitalCompontiac general hospital on above: Performed By: #### POCGLUC #### [facility] [address] [place] [address] José Luis MathurenUS SINGLE QUAD RT UPPERon [id number] SINGLE QUAD RT UPPER EXAMINATION: US SINGLE [...] Electronically authenticated by: CINDI SOMMER Date: 2021-06-03 09:27[facility] HospitalXR CHEST 1 Von 03-57-0596XZ CHEST 1 VEXAMINATION: XR CHEST 1 V [...] Electronically authenticated by: CINDI SOMMER Date: 2021-06-03 09:56[facility] Note - Heme Onc Schedulingon 73-67-8533Qtrllg Note - Heme Onc SchedulingRetrieve Patient Instructions: Patient Instructions: Patient Instructions: RetrievePatient Instructions COMMUNICATION ORDERS NOTES: Communication Orders NotesPer scheduling note on appointment wifes patient wants apt on 08/26 End of Visit Documentation: Clinic Location/Phone Number: Clinic Location/Phone Number: [place] [address] End Of Visit MU Report Item: Visit Summary given or mailed to patientyes Mailed Appointments Electronic Signatures: Candice Shirley (PT ACCT REP) (Signed 22-May-2021 10:02) Authored: Retrieve Patient Instructions, COMMUNICATION ORDERS NOTES, End of Visit Documentation Last Updated: 22-May-2021 10:02 by Candice Shirley (PT ACCT REP)[facility]iton 05-20-2021 Clinic Note - Heme Onc-Follow Up VisitPatient Visit Information: Visit Type: Follow Up Visit History of Present Illness: ID Statement: YUSEF CAR is a 71 year old Male Chief Complaint: Duodenal neuroendocrine tumor Interval History: 70 years old gentleman from [place], [place] who has been referred to me from [facility]. The patient complained of acid reflux for [...] 08:30 140 4.5 103 N/A 19 1.20 14-Rodrigo-2021 08:49 N/A N/A N/A N/A N/A N/A [...] cysts. 6. No (more content not included)...NormalUH [facility] CenterClinic Note - Intakeon 76-35-3561Oyuzvh Note - IntakePatient Visit Information: Visit TypeFollow [...] 3 Weights & HeightsDate: Weight/Scale Type:Height: 04-Feb-2021 09:26724 kg / standing ofiwe823.8 cm 07-Jan-2021 13:66523 kg / standing yfipa163.8 cm 19-Dec-2020 13:31631 kg / standing zwqxe628.8 cm SpO2 (%)98 % SpO2 Patient Onroom [...] falls riskimplement environmental risk factors interventions Spiritual/Procedural: Spiritual/cultural/latter day practices important for us to knowno Oncology [...] Nutrition Last Updated: 20-May-2021 12:55 by Edith Ruvalcaba)[facility] - challengeon 05-01-2021 Glucose [Mass/Vol]132 mg/dLabove high - 99 RQ-Jhbmhhrqbnvgqwnr-Fqrvoqog SJW 450 DO Work Phone: No Panel Informationon 05-01-2021 GE-Aaqtfxfdkhsurvsv-Fmwmjkeh SJW 450 DO Work Phone: [email or web address]?={[id number]}ML-Mutpqtgbxteezaiq-Mriradks SJW 450 DO Work Phone: [phone]-Fpemzdxushyixdcb-Lajas SJW 450 DO Work Phone: Coronavirus 2019 RNA by PCR, Screening Asymptomticon 98-47-8239Doozkpzdqiy 2019 RNA by PCR, Screening AsymptomticNot detectedNormal See MnjadTQ-Tfqnckbkigjlvdxe-Bogwevep SJW 450 DO Work Phone: Comment on [...] make patient management decisions.Fact sheet for providers: https://www.fda.gov/media/882310/downloadFact sheet for patients: https://www.fda.gov/media/504885/downloadThis test has received FDA Emergency Use Authorization (EUA) and has been verified by [facility] ([facility]). This test is only authorized for the duration of time that circumstances exist to justify the authorization of the emergency use of in vitro diagnostic tests for the detection of SARS-CoV-2 virus and/or diagnosis of COVID-19 infection under section 564(b)(1) of the Act, 21 U.S.C. 360bbb- 3(b)(1), unless the authorization is terminated or revoked sooner. [facility] is certified under CLIA-88 as qualified to perform high complexity testing. Testing is performed in the [facility] laboratories located at [address] [place] [address].Provider Communicationon 53-72-4496Knxqrktw CommunicationDear Dr. Steele, Dr. Knowles and Dr. [...] should questions arise Sincerely, Irwin Cespedes MD, [facility] Clinical [employer] [facility] Gastroenterology [facility] [employer] [facility] [address] [place] [address] Patient Care Team Care Team MemberRoleSpecialtyOffice Number Cedric HERNANDEZ, [facility] ProviderBeverly Hospital [phone] Active Problems Problems BPH with obstruction/lower urinary [...] MD; Feb 05 2021 2:42PM EST (Author) [facility] TouchworksLaboratory - Chemistry and Chemistry - challengeon 01-23-2021 Glucose [Mass/Vol]106 mg/dLabove high falpjicjw85 - 99 BG-Izavidmrpjkofrna-Gxearogr [employer]W 450 DO Work Phone: No Panel Informationon 01-23-2021 OB-Ylncpjslqlaiaxdm-Qwzqdujx SJW 450 DO Work Phone: [email or web address]?={[id number]}VK-Dpgsygjhbyyicrhq-Ekoiwwms SJW 450 DO Work Phone: [phone]-Mgszxwybguuhtwfw-[employer] 450 DO Work Phone: Complete Blood Count + Differentialon 01-11-2021 Basophils/100 WBC (Bld)0.4 %0.0 - 2.0[facility] Work Phone: Erythrocyte distribution width (RBC) [Ratio]15.6 % above high thresholdSee BelowVeterans Health Administration Work Phone: Comment on above:Reference Range: 11.5 - 14.5 Hematocrit (Bld) [Volume fraction]40.9 %below low thresholdSee [facility] Work Phone: [phone] on above:Reference Range: 41.0 - 52.0 Hemoglobin (Bld) [Mass/Vol]12.9 g/dLbelow low thresholdSee [facility] Work Phone: [phone] on above:Reference Range: 13.5 - 17.5 Lymphocytes/100 WBC (Bld)16.1 %See [facility] Work Phone: [phone] on above:Reference Range: 13.0 - 44.0MCHC (RBC) [Mass/Vol]31.5 g/dLbelow low thresholdSee [facility] Work Phone: [phone] on above:Reference Range: 32.0 - 36.0MCV (RBC) [Entitic vol]92 fL80 - 100[facility] Work Phone: [phone]/100 WBC (Bld)7.4 %2.0 - 10.0[facility] Work Phone: [phone]/100 WBC (Bld)73.8 %See [facility] Work Phone: [phone] on above:Reference Range: 40.0 - 80.0Platelets (Bld) [#/Vol]360 10*3/uL150 - 450[facility] Work Phone: [phone] (Bld) [#/Vol]4.45 {x10E12/L}below low thresholdSee [facility] Work Phone: [phone] on above:Reference Range: 4.50 - 5.90WBC (Bld) [#/Vol]7.7 10*3/uL4.4 - 11.3[facility] Work Phone: [phone] Blood Count + Differential0.03 {x10E9/L}See [facility] Work Phone: [phone] on above:Reference Range: 0.00 - 0.10Complete Blood Count + Differential0.15 {x10E9/L}See [facility] Work Phone: [phone] on above:Reference Range: 0.00 - 0.40Complete Blood Count + Differential0.57 {x10E9/L}See [facility] Work Phone: [phone] on above:Reference Range: 0.05 - 0.80Complete Blood Count + Differential1.24 {x10E9/L}See [facility] Work Phone: [phone] on above:Reference Range: 0.80 - 3.00Complete Blood Count + Differential5.68 {x10E9/L}above high thresholdSee BelowVeterans Health Administration Work Phone: [phone] on above:Reference Range: 1.60 - 5.50Complete Blood Count + Differential2.0 %0.0 - 6.0[facility] Work Phone: [phone] Blood Count + Differential0.3 %0.0 - 0.9 [facility] Work Phone: [phone] on above:Immature Granulocyte Count (IG) includes promyelocytes, myelocytes and metamyelocytes but does not include bands. Percent differential counts (%) should be interpreted in the context of the absolute cell counts (cells/L).Laboratory - Chemistry and Chemistry - challengeon 40-69-3369Rucqtwm BCP dye [Mass/Vol]4.1 g/dL3.4 - 5.0[facility] Work Phone: [phone] [Catalytic activity/Vol]82 U/L33 - 136[facility] Work Phone: [phone] With P-5'-P [Catalytic activity/Vol]12 U/L10 - 52 [facility] Work Phone: [phone] on above:Patients treated with Sulfasalazine may generate falsely decreased results for ALT.Anion gap [Moles/Vol]12 mmol/L10 - 20[facility] Work Phone: [phone] With P-5'-P [Catalytic activity/Vol]12 U/L9 - 39 [facility] Work Phone: [phone] [Mass/Vol]0.5 mg/dL0.0 - 1.2[facility] Work Phone: [phone] [Mass/Vol]9.8 mg/dL8.6 - 10.3[facility] Work Phone: [phone] [Moles/Vol]103 mmol/L98 - 107[facility] Work Phone: [phone] [Moles/Vol]30 mmol/L21 - 32[facility] Work Phone: [phone] [Mass/Vol]1.20 mg/dLSee [facility] Work Phone: [phone] on above:Reference Range: 0.50 - 1.30Glucose [Mass/Vol]147 mg/dLabove high zcdbokghn43 - 99[facility] Work Phone: [phone] [Moles/Vol]4.5 mmol/L3.5 - 5.3[facility] Work Phone: [phone] [Mass/Vol]7.0 g/dL6.4 - 8.2[facility] Work Phone: [phone] [Moles/Vol]140 mmol/L136 - 145[facility] Work Phone: [phone] nitrogen [Mass/Vol]19 mg/dL6 - 23[facility] Work Phone: [phone] Liver w/wo Contraston 10-59-4051PV Liver WO and W contrast IVNormalUSt. Luke's Health [facility] Work Phone: [phone] Panel Informationon 72-21-520844 {mL/min/1.73m2}>60 [facility] Work Phone: [phone] on above:CALCULATIONS OF ESTIMATED GFR ARE PERFORMED USING THE MDRD STUDY EQUATION FOR THE IDMS-TRACEABLE CREATININE METHODS. CLIN CHEM 2007;53:766-7260 {mL/min/1.73m2}Abnormal>60[facility] Work Phone: [phone] Specific Antigenon 17-20-7242Utvtlqsu specific Ag [Mass/Vol]0.29 ng/mLSee [facility] Work Phone: [phone] on above:Reference Range: 0.00 - 4.00The FDA requires that the method used for PSA assay be reported to the physician. Values obtained with different assay methods must not be used interchangeably. This test was performed at [facility] using the [employer] PSA method, which is a sandwich immunoassay using chemiluminescence for quantitation. The assay is approvedfor measurement of prostate-specific antigen (PSA) in serum and may be used in conjunction with a digital rectalexamination in men 50 years and older as an aid in detection of prostate cancer. 5-Grqio-yszarjkui inhibitors (e.g. Proscar, Finasteride, Avodart, Dutasteride and Crystal) for the treatment of BPH have been shownto lower PSA levels by an average of 50% after 6 months of treatment.Follow Up (General Surgery)on 14-05-2302Eghbfd Up (General Surgery)Diagnoses/Problems Primary malignant neuroendocrine neoplasm [...] visit. 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 He underwent EGD on 11/28/2020 at [facility] for a longstanding history ofgastroesophageal reflux disease, [...] Calcium 10 MG Oral Tablet Results/Data Gastrin, Bfnjx04Vmo7433 08:49AMNon Ambulatory, Provider Ordering Provider: NEFTALI KNOWLES [id number] Test NameResultFlagReference Gastrin, Serum21 pg/mL0-100 Performed By: [employer] [address] [place] [address] Linux Architect: TracyI. Jai MD CT Abdomen and Pelvis with IV Whgrkxli45Pgm0095 05:35[facility]MAbra[facility], Provider Ordering Provider: NEFTALI KNOWLES [id number] Abdomen and Pelvis with [...] for staging purposes. COMPARISON: None. 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) (N40.1,N13.8) Orders SocHx: Non-smoker Tobacco Use Screening; Status:Complete; Done: 83Bik4048 Perform:Not Applicable;Ordered; For:SocHx: Non-smoker; Ordered By:Neelima Brock; [...] Tablet Vitals Vital Signs Recorded: 08Jan2021 02:15PM Yjhfidyyuzn06.5 F Heart Rate76 Vqgtvvri962 Sckoyjxzv27 Height5 ft 10 in Uvxuob762 lb BMI Jlijwamuuv45.87 kg/m2 BSA Calculated2.27 Tobacco Useb) No Fall [...] Results/Data CT Abdomen and Pelvis with IV Jnrzmxlo48Fhl4732 05:35PMNon Ambulatory, Provider Ordering Provider: NEFTALI KNOWLES [id number] Abdomen and Pelvis with [...] st (more content not included)...NormalUH TouchworksTobacco Screening.on 56-77-2275Xtmd risk assessmenta) No falls within the last mloxUB-Vjfayom-IzzimkcMcLaren Bay Special Care Hospital Work Phone: Tobacco use status CPHSb) LeLK-Mwujnvf-QtwvdrlCorewell Health [facility] Work Phone: complete Blood Count + Differentialon 07-14-2021 Hematocrit (Bld) [Volume fraction]TcwykqfkYM-Cccjdwc-BdjjxyjMcLaren Bay Special Care Hospital Work Phone: [phone] (Bld) [Mass/Vol]VzvsineaKE-Ajxtqlg-AilxrewMcLaren Bay Special Care Hospital Work Phone: [phone] (Bld) [#/Vol]LkhaxrwhDO-Zvxkevv-PjvplnbMcLaren Bay Special Care Hospital Work Phone: [phone] (Bld) [#/Vol]JwocksfvDY-Vldezdh-SrrzzwfMcLaren Bay Special Care Hospital Work Phone: [phone] Blood Count + DifferentialCanceled [facility] Work Phone: [phone] on above:Immature Granulocyte Count (IG) includes promyelocytes, myelocytes and metamyelocytes but does not include bands. Percent differential counts (%) should be interpreted in the context of the absolute cell counts (cells/L).CALCULATIONS OF ESTIMATED GFR ARE PERFORMED USING THE MDRD STUDY EQUATION FOR THE IDMS-TRACEABLE CREATININE METHODS. CLIN CHEM 2007;53:766-72Gastrin, Serumon 04-07-2297Iluvglo [Mass/Vol]21 pg/mL0-100 [facility] Work Phone: [phone] on above:Performed By: [employer] [place] [id number] Director: Katharine Carrillo MD Laboratory - Chemistry and Chemistry - challengeon 38-36-6250Lmvholp BCP dye [Mass/Vol]VvjewjjbNE-Bunuajw-SgisdcrMcLaren Bay Special Care Hospital Work Phone: [phone] [Catalytic activity/Vol]MivsxxmiEX-Mrizifd-HqdiryrMcLaren Bay Special Care Hospital Work Phone: [phone] With P-5'-P [Catalytic activity/Vol]Canceled [facility] Work Phone: [phone] on above:Patients treated with Sulfasalazine may generate falsely decreased results for ALT.AST With P-5'-P [Catalytic activity/Vol]ZmuligodHG-Poshpzu-EykongrMcLaren Bay Special Care Hospital Work Phone: [phone] [Mass/Vol]FquqeegnOP-Yuvmvss-LmhwdesMcLaren Bay Special Care Hospital Work Phone: [phone] [Mass/Vol]SfjfxfmcRQ-Xreybcl-KcbgyvaMcLaren Bay Special Care Hospital Work Phone: [phone] [Moles/Vol]LibmqjdrUS-Dhzufjg-JcmqguxMcLaren Bay Special Care Hospital Work Phone: [phone] [Moles/Vol]YvpoiusrIO-Jaartnc-TknhhfoMcLaren Bay Special Care Hospital Work Phone: [phone] [Mass/Vol]PixdvygmVP-Netttrj-MbkigmgMcLaren Bay Special Care Hospital Work Phone: [phone] [Mass/Vol]YgyrsglpEY-Rikeghi-DwfnqvlMcLaren Bay Special Care Hospital Work Phone: [phone] [Moles/Vol]GlozfgcpET-Aitiqld-CmlibqiMcLaren Bay Special Care Hospital Work Phone: [phone] [Mass/Vol]FujrrotyHT-Nkgwdio-GmjecxoMcLaren Bay Special Care Hospital Work Phone: [phone] [Moles/Vol]EvkkuqibGO-Ggayppj-VttdijaMcLaren Bay Special Care Hospital Work Phone: [phone] nitrogen [Mass/Vol]UthgamuaGS-Kprrhxj-HsypczfMcLaren Bay Special Care Hospital Work Phone: [phone] Abdomen and Pelvis with IV Contraston 26-38-1279VG Abdomen and Pelvis W contrast RFTmrqdrYJ-Eabiejx-RqgbzouMcLaren Bay Special Care Hospital Work Phone: [phone] Blood Count + Differentialon 12-25-2020 Basophils/100 WBC (Bld)0.2 %0.0 - 2.3JY-Pzkxhwy-KzaygqkMcLaren Bay Special Care Hospital Work Phone: [phone] distribution width (RBC) [Ratio]15.7 % above high thresholdSee KhqjfMI-Amlvbyj-EavbymaMcLaren Bay Special Care Hospital Work Phone: [phone] on above:Reference Range: 11.5 - 14.5 Hematocrit (Bld) [Volume fraction]40.2 %below low thresholdSee Below [facility] Work Phone: [phone] on above:Reference Range: 41.0 - 52.0 Hemoglobin (Bld) [Mass/Vol]13.0 g/dLbelow low thresholdSee Below [facility] Work Phone: [phone] on above:Reference Range: 13.5 - 17.5 Lymphocytes/100 WBC (Bld)14.4 %See OgtvnSG-Lyvtpny-UtahvehMcLaren Bay Special Care Hospital Work Phone: [phone] on above:Reference Range: 13.0 - 44.0MCHC (RBC) [Mass/Vol]32.3 g/dLSee PqxfzXI-Vxdmetl-IpwfxiuMcLaren Bay Special Care Hospital Work Phone: [phone] on above:Reference Range: 32.0 - 36.0MCV (RBC) [Entitic vol]89 fL80 - 185HU-Zirgwwn-DhhpmpdMcLaren Bay Special Care Hospital Work Phone: [phone]/100 WBC (Bld)7.5 %2.0 - 10.0 [facility] Work Phone: [phone]/100 WBC (Bld)76.9 %See Below [facility] Work Phone: [phone] on above:Reference Range: 40.0 - 80.0Platelets (Bld) [#/Vol]401 10*3/uL150 - 253CP-Xujsemy-FelpgsaMcLaren Bay Special Care Hospital Work Phone: [phone] (Bld) [#/Vol]4.50 {x10E12/L}See Below [facility] Work Phone: [phone] on above:Reference Range: 4.50 - 5.90WBC (Bld) [#/Vol]11.4 10*3/uLabove high threshold4.4 - 11.1QU-Biunxtv-PbahwbvC.S. [facility] Work Phone: [phone] Blood Count + Differential0.02 {x10E9/L}See XwcodLW-Bokkisf-CanxdfkMcLaren Bay Special Care Hospital Work Phone: [phone] on above:Reference Range: 0.00 - 0.10Complete Blood Count + Differential0.08 {x10E9/L}See OvmifFS-Lboatfs-FxmcwtlMcLaren Bay Special Care Hospital Work Phone: [phone] on above:Reference Range: 0.00 - 0.40Complete Blood Count + Differential0.86 {x10E9/L}above high thresholdSee Below [facility] Work Phone: [phone] on above:Reference Range: 0.05 - 0.80Complete Blood Count + Differential1.65 {x10E9/L}See WxeztEM-Hjevzrx-RtmyqirMcLaren Bay Special Care Hospital Work Phone: [phone] on above:Reference Range: 0.80 - 3.00Complete Blood Count + Differential8.78 {x10E9/L}above high thresholdSee Below [facility] Work Phone: [phone] on above:Reference Range: 1.60 - 5.50Complete Blood Count + Differential0.7 %0.0 - 6.7JX-Meraazh-SlapwivMcLaren Bay Special Care Hospital Work Phone: [phone] Blood Count + Differential0.3 %0.0 - 0.9 [facility] Work Phone: [phone] on above:Immature Granulocyte Count (IG) includes promyelocytes, myelocytes and metamyelocytes but does not include bands. Percent differential counts (%) should be interpreted in the context of the absolute cell counts (cells/L).Gastrin, Serumon 78-50-9190Xbqsrqs [Mass/Vol] TslydzveHL-Uoladfd-IuuvznvMcLaren Bay Special Care Hospital Work Phone: [phone] - Chemistry and Chemistry - challengeon 42-93-7559Ueniqfn BCP dye [Mass/Vol]4.3 g/dL3.4 - 5.9JM-Jepjvwi-RiaaphbMcL[facility] Work Phone: [phone] [Catalytic activity/Vol]88 U/L33 - 136 [facility] Work Phone: [phone] With P-5'-P [Catalytic activity/Vol]11 U/L10 - 52 [facility] Work Phone: [phone] on above:Patients treated with Sulfasalazine may generate falsely decreased results for ALT.Anion gap [Moles/Vol]15 mmol/L10 - 89SE-Yakmtrv-WqqblgiCorewell [facility] Work Phone: [phone] With P-5'-P [Catalytic activity/Vol]12 U/L9 - 39 CY-Wcdqphd-MeausjtCorewell Health [facility] Work Phone: [phone] [Mass/Vol]0.4 mg/dL0.0 - 1.2 LD-Vtberhp-DwnemtzCorewell Health [facility] Work Phone: [phone] [Mass/Vol]9.8 mg/dL8.6 - 10.3 NR-Txzxjgt-RgdlqtfCorewell Health [facility] Work Phone: [phone] [Moles/Vol]104 mmol/L98 - 107 MI-Bikofrm-WzkivbdCorewell [facility] Work Phone: [phone] [Moles/Vol]23 mmol/L21 - 04TN-Qfbzobs-KztutfqCorewell Health [facility] Work Phone: [phone] [Mass/Vol]1.15 mg/dLSee Below [facility] Work Phone: [phone] on above:Reference Range: 0.50 - 1.30Glucose [Mass/Vol]101 mg/dLabove high bdtmnezpw24 - 14XV-Hfkurcc-FvqiwgwCorewell [facility] Work Phone: [phone] [Moles/Vol]4.3 mmol/L3.5 - 5.3 PL-Kyyidtl-YlmfyppCorewell Health [facility] Work Phone: [phone] [Mass/Vol]7.5 g/dL6.4 - 8.3HG-Tdsyavt-IctdjcfCorewell [facility] Work Phone: [phone] [Moles/Vol]138 mmol/L136 - 145 FX-Sthvrby-OeulcynCorewell Health [facility] Work Phone: [phone] nitrogen [Mass/Vol]30 mg/dLabove high threshold6 - 73BZ-Prxqkoh-JurniitCorewell Health [facility] Work Phone: [phone] Panel Informationon 12-25-2020>60>60 CU-Uxudsdv-YutivspCorewell [facility] Work Phone: comment on above:CALCULATIONS OF ESTIMATED GFR ARE PERFORMED USING THE MDRD STUDY EQUATION FOR THE IDMS-TRACEABLE CREATININE METHODS. CLIN CHEM 2007;53:766-72PET CT Net WB (Net Spot)on [id number] CT Net WB (Net Spot)WdtlrzWN-Rpmzvnj-MayohtnMcLaren [facility] Work Phone: No Panel Informationon 25-15-3008YT-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 He will be undergoing serum gastrin level testing as well as cross-sectional imaging. I will obtain his EGD report from [facility]. It is currently unclear to me [...] Duodenal well-differentiated neuroendocrine tumor History of Present Iutbrdo71-qhtf-spd man referred to me from Dr. Johansen for duodenal well-differentiated neuroendocrine tumor. He underwent EGD on 11/28/2020 at the [facility] in [facility] for a longstanding history of [...] PYLORI TISSUEon 11-28-2020H PYL TISSUE, UREASENegativeNormal NEGATIVEThe Magruder HospitalComment on above:Performed By: #### POCGLUC #### [facility] [address] [address] [address] [facility] GLUCOSEon 49-83-0919Qoxmzvk [Mass/Vol]129 mg/dL Critically gerj88-350Eye [facility] HospitalComment on above:Performed By: #### POCGLUC #### [facility] [address] [address] José Luis KarenCovid-19 PCR (CVDTBH)on 16-12-2301BOJW-CoV-2 (COVID-19) RNA SHRUTI+probe Ql (Unsp spec)Not detectedNormalNOT DETECTEDThe [facility] Comment on above:Result Comment: This test is not yet approved or cleared by the [place] FDA. When there are no FDA-approved or cleared tests available, and other criteria are met, FDA can make tests available under an emergency access mechanism called an Emergency Use Authorization (EUA). The EUA for this test is supported by the [place] of Health and Human Service's (HHS's) declaration [...] consistent with SARS-CoV-2.Performed By: #### CBCMAN #### [facility] [address] [address] [address] Freda WayneIA HEPATOBILIARY SCAN W EFon 07-99-7030FX HEPATOBILIARY SCAN W EF EXAMINATION: NM HEPATOBILIARY [...] Electronically authenticated by: MARCELLO LEE Date: 2020-06-18 10:24[facility] Vital Signs Date TimeVital SignValuePerforming UakrjtdfxRsgrvyxv07-54-2661 13:56-0400Body yefrms829.8 cmNicholas Brown DPM Work Phone: [phone] HealthcareS[facility] Treatment CenterOwgozwqjjg14-58-1517 13:56-0400Body mass index (BMI) [Ratio]32.28 kg/c0Uehtawzg Brown DPM Work Phone: [phone] HealthcareS[facility] Treatment CenterFaevyxhtyj66-84-6933 13:56-0400Body .06 kgNicholas Brown DPM Work Phone: [phone] [facility] Community Treatment CenterWupfflxafg89-29-4313 13:56-0400Respiratory rate16 /minNicholas Brown DPM Work Phone: [phone] HealthcareS[facility] CenterTagvvcctpz77-30-7262 13:48-0400Body .8 cmNicholas Brown DPM Work Phone: [phone] [facility] Treatment CenterSndvnjmcqu86-55-7466 13:48-0400Body mass index (BMI) [Ratio]32.28 kg/o7Gjxsdgdf Brown DPM Work Phone: [phone] CenterXsxtlfcjgh93-27-3215 13:48-0400Body .06 kgJonathan Petty DPM Work Phone: [facility] CenterKxfpdmxenu94-64-8886 13:48-0400Respiratory rate18 /minJonathan Petty DPM Work Phone: [facility] CenterLulbqevrwo44-45-0780 11:19-0400Body temperature 98.5 [degF]Tomeka Aichholz RN SCHOOL-C Work Phone: [phone] [place], [place] 3597210-15-2025 11:19-0400 Body hodfkr149.04 kgLisa Aichholz RN SCHOOL-C Work Phone: [phone]10-15-2025 11:19-0400 Diastolic blood iyugonrx14 mm[Hg]Tomeka Aichholz RN SCHOOL-[employer] Work Phone: [phone]10-15-2025 11:19-0400 Heart rate72 /minLisa Aichholz RN SCHOOL-C Work Phone: [phone]10-15-2025 11:19-0400 Respiratory rate18 /minLisa Aichholz RN SCHOOL-C Work Phone: [phone] [place], [place] 3597210-15-2025 11:19-0400 SaO2% (BldA) [Mass fraction]96 %Tomeka Aichholz RN [employer] Work Phone: [phone] [place], [place] 3597210-15-2025 11:19-0400 Systolic blood adkkseng063 mm[Hg]Tomeka Aichholz RN SCHOOL-[employer] Work Phone: [phone] [place], [place] 3597209-29-2025 09:03-0400 Body wnubbg404.8 cmLisa Aichholz RN SCHOOL-C Work Phone: [phone] [place], [place] 3597209-29-2025 09:03-0400 Body mass index (BMI) [Ratio]33.5 kg/m2Lisa Aichholz RN [employer]CHOOL-[employer] Work Phone: [phone] [place], [place] 3597209-29-2025 09:03-0400 Body vfgvimhnwnv73.5 [degF]Tomeka Aichholz RN SCHOOL-C Work Phone: [facility]09-29-2025 09:03-0400 Body araabg341.85 kgLisa Aichholz RN SCHOOL-C Work Phone: [facility]09-29-2025 09:03-0400 Diastolic blood ogpgrnnq33 mm[Hg]Tomeka Aichholz RN SCHOOL-[employer] Work Phone: [phone] [place], [place] 3597209-29-2025 09:03-0400 Heart rate36 /minLisa Aichholz RN SCHOOL-C Work Phone: [phone] [place], [place] 3597209-29-2025 09:03-0400 Heart rate40 /minLisa Aichholz RN SCHOOL-C Work Phone: [phone]09-29-2025 09:03-0400 Respiratory rate18 /minLisa Aichholz RN SCHOOL-C Work Phone: [phone] [place], [place] 3597209-29-2025 09:03-0400 SaO2% (BldA) [Mass fraction]96 %Tomeka Aichholz RN [employer]CHOOL-[employer] Work Phone: [facility]09-29-2025 09:03-0400 Systolic blood xuadhirs727 mm[Hg]Tomeka Aichholz RN SCHOOL-[employer] Work Phone: [facility]09-29-2025 09:03-0400 Systolic blood mm[Hg]Tomeka Aichholz RN SCHOOL-[employer] Work Phone: [facility]07-28-2025 08:33-0400 Body mass index (BMI) [Ratio]33.2 kg/m2Lisa Aichholz RN SCHOOL Work Phone: [facility] CenterDikqfugdkf30-32-9332 08:33-0400Body temperature 98.49 [degF]Tomeka Aichholz RN SCHOOL Work Phone: [phone] [place], [place] [address]Diiywxheon54-38-5196 08:33-0400Body dgbxmy410.96 kgLisa Leeroyhholz RN SCHOOL Work Phone: [facility] CenterRrzhjktpln16-38-2999 08:33-0400Diastolic blood wihtgahs14 mm[Hg]Tomeka Aichholz RN SCHOOL Work Phone: [facility] CenterFckdrmpejy54-20-1475 08:33-0400Heart rate68 /min Tomeka Aichholz RN SCHOOL Work Phone: [facility] CenterPqphkpocpr74-10-1552 08:33-0400Respiratory rate18 /minLisa Aichholz RN SCHOOL Work Phone: [facility] CenterQywmedkuzl90-37-7149 08:33-1031CdB5% (BldA) [Mass fraction]96 %Tomeka Aichholz RN SCHOOL Work Phone: [facility] CenterUtgnlzqiyk54-85-9873 08:33-0400Systolic blood hpzutfok293 mm[Hg]Tomeka Aichholz RN SCHOOL Work Phone: [facility] CenterKhzccfhcvk49-04-7908 14:05-0400Body mass index (BMI) [Ratio]32.4 kg/m2Lisa Leeroyhholz RN SCHOOL Work Phone: [facility] CenterYqjcgcuhcq07-02-5552 14:05-0400Body temperature 98.49 [degF]Tomeka Leeroyhholz RN SCHOOL Work Phone: [facility] CenterToaynvatrn16-08-2743 14:05-0400Body .42 kgLisa Aichholz RN SCHOOL Work Phone: [facility] CenterNiyvqcnfmq85-78-7323 14:05-0400Diastolic blood stdxqqxa38 mm[Hg]Tomeka Aichholz RN SCHOOL Work Phone: [facility] CenterWubgowrosk19-89-1590 14:05-0400Heart rate24 /min Tomeka Aichholz RN SCHOOL Work Phone: [facility] CenterSxqafkgjne69-58-3230 14:05-0400Respiratory rate18 /minLisa Aichholz RN SCHOOL Work Phone: [facility] CenterOqvcdvatbw39-15-8265 14:05-1546DoQ5% (BldA) [Mass fraction]95 %Tomeka Rosado RN SCHOOL Work Phone: [facility] CenterVlcqeaznfj90-42-6733 14:05-0400Systolic blood jnfalnxm470 mm[Hg]Tomeka Stricklandz RN SCHOOL Work Phone: [facility] CenterLkmdtudvdb36-21-7558 13:58-0400Body mass index (BMI) [Ratio]32.46 kg/m2Lisa Marvinholz RN SCHOOL Work Phone: [facility] CenterTirxjwomxs96-93-2097 13:58-0400Body temperature 98.49 [degF]Tomeka Stricklandz RN SCHOOL Work Phone: [facility] CenterPiqifegzas25-13-9229 13:58-0400Body osqyya230.6 kgLisa Stricklandz RN SCHOOL Work Phone: [phone] [place], [place] [address]Tiwbrjmuej16-99-0745 13:58-0400Diastolic blood fejlpdnu35 mm[Hg]Tomeka Stricklandz RN SCHOOL Work Phone: [facility] CenterDfgzhbotmc43-50-4177 13:58-0400Heart rate71 /min Tomekachrissy Stricklandz RN SCHOOL Work Phone: [facility] CenterCwxcfkvkcw15-31-5311 13:58-0400Respiratory rate18 /minLisa Stricklandz RN SCHOOL Work Phone: [facility] CenterXypbsskbie92-80-0918 13:58-6198LwU4% (BldA) [Mass fraction]96 %Tomekachrissy Stricklandz RN SCHOOL Work Phone: [facility] CenterBqngbxepso50-07-3338 13:58-0400Systolic blood awzlnunq913 mm[Hg]Tomeka Marco Az RN SCHOOL Work Phone: [facility] CenterBvtglnlygq15-55-2387 08:41-0400Body mass index (BMI) [Ratio]33.12 kg/m2Lisa Marvinholz RN SCHOOL Work Phone: [phone] [place], [place] [address]Gspuaofneq09-60-4353 08:41-0400Body temperature 97.81 [degF]Tomeka Rosado RN SCHOOL Work Phone: [facility] CenterPhnnqalbgg14-43-5125 08:41-0400Body qiypst476.69 kgTomeka Rosado RN SCHOOL Work Phone: [facility] CenterRktjcymqrz51-00-2111 08:41-0400Diastolic blood umvdjemp51 mm[Hg]Tomeka Rosado RN SCHOOL Work Phone: [facility] CenterDomswohoig39-36-8951 08:41-0400Heart rate56 /min Tomeka Rosado RN SCHOOL Work Phone: [facility] CenterVrpkvutikc96-92-8595 08:41-0400Respiratory rate18 /minTomeka Rosado RN SCHOOL Work Phone: [facility] CenterNdndaxktpi30-46-5724 08:41-2962UyA9% (BldA) [Mass fraction]98 %Tomeka Rosado RN SCHOOL Work Phone: [facility] CenterKmxmchlinz44-57-3153 08:41-0400Systolic blood beekinni401 mm[Hg]Tomeka Rosado RN SCHOOL Work Phone: [facility] CenterUcxumpjkew51-49-4470 08:29-0500Body ssqoth796.8 cmAguedaenrrique Limk RN SCHOOL Work Phone: [facility] CenterRnxmhkuwnw44-75-8390 08:29-0500Body mass index (BMI) [Ratio]34.09 kg/x4Oiwjjrig Gatica RN SCHOOL Work Phone: [facility] CenterJplryvvdnd84-45-1613 08:29-0500Body temperature 98.8 [degF]Miriam Cardozopatrick RN SCHOOL Work Phone: [facility] CenterOeprsakesi96-06-2077 08:29-0500Body zoxcdi788.78 kgAguedaenrrique LauraGatica RN SCHOOL Work Phone: [facility] CenterSspjiemtep30-47-4633 08:29-0500Diastolic blood agucwtsm60 mm[Hg]Miriam Laurazpatrick RN SCHOOL Work Phone: [facility] CenterKcpkeuezwu69-38-1118 08:29-0500Heart rate74 /min Miriam Laurazpatrick RN SCHOOL Work Phone: [facility] CenterIqpntqtwwd64-93-5579 08:29-0500Respiratory rate22 /minBrallen Gatica RN SCHOOL Work Phone: [facility] CenterErbmzqxilq22-37-9095 08:29-8673HmN6% (BldA) [Mass fraction]96 %Miriam Laurazpatrick RN SCHOOL Work Phone: [facility] CenterHycfymkrzz35-32-2040 08:29-0500Systolic blood imswcacp582 mm[Hg]Miriam Laurazpatrick RN SCHOOL Work Phone: [facility] CenterIpzfvwynlk80-52-1991 11:11-0500Body temperature 97.5 [degF]Jeremiah Magaña MD Work Phone: [phone] [place], [place] 4006001-16-2025 11:11-0500 Diastolic blood yapnfrgn88 mm[Hg]Jeremiah Magaña MD Work Phone: [phone]01-16-2025 11:11-0500 Heart rate79 /minJeremiah Magaña MD Work Phone: [phone]01-16-2025 11:11-0500 Respiratory rate18 /minJeremiah Magaña MD Work Phone: [phone]01-16-2025 11:11-0500 SaO2% (BldA) [Mass fraction]95 %Jeremiah Magaña MD Work Phone: [phone]01-16-2025 11:11-0500 Systolic blood pfpevigq231 mm[Hg]Jeremiah Magaña MD Work Phone: [phone]01-16-2025 09:33-0500 Body symovd857.8 cmJeremiah Magaña MD Work Phone: [phone]01-16-2025 09:33-0500 Body mass index (BMI) [Ratio]33 kg/e8HtcebJeremiah Magaña MD Work Phone: [facility]01-16-2025 09:33-0500 Body nbpqyj183.33 kgJeremiah Magaña MD Work Phone: [facility]01-07-2025 09:29-0500 Body mass index (BMI) [Ratio]33.96 kg/m2Neftali Knowles MD Work Phone: [phone]01-07-2025 09:29-0500 Body fvhodudubmc13.5 [degF]Neftali Knowles MD Work Phone: [phone])[address] [place], [place] 0741601-07-2025 09:29-0500 Body .37 kgJoser Benson HERNANDEZ Work Phone: [phone])[address] [place], [place] [address]741601-07-2025 09:29-0500 Diastolic blood ggqylovf71 mm[Hg]Neftali Knowles MD Work Phone: [phone]01-07-2025 09:29-0500 Heart rate82 /minJoser Benson HERNANDEZ Work Phone: [phone])[address] [place], [place] 0741601-07-2025 09:29-0500 Respiratory rate18 /minJoser Benson HERNANDEZ Work Phone: [phone])[address] [place], [place] 0741601-07-2025 09:29-0500 SaO2% (BldA) [Mass fraction]94 %Neftali Knowles MD Work Phone: [phone]01-07-2025 09:29-0500 Systolic blood iynxzrip096 mm[Hg]Neftali Knowles MD Work Phone: [phone])[address] [place], [place] 0741610-30-2024 08:50-0400 Body rrbeei715.8 cmJenniffer RIBEIRO Work Phone: [facility] CenterXuvlvzxzbf38-85-2736 08:50-0400Body mass index (BMI) [Ratio]33.43 kg/l0Wgnqpbw Sears PA Work Phone: no[facility] HospitalQzbtmalvfx34-61-6280 08:50-0400Body fneeka606.69 kgMatthew Orion PA Work Phone: noResearch [facility] HospitalVwofudqhms75-84-0601 08:29-0400Body myrwvd873.8 cmBrittany Gatica RN SCHOOL Work Phone: noResearch [facility] HospitalGnrljukjns65-53-3086 08:29-0400Body mass index (BMI) [Ratio]33.89 kg/t1Vxzimyye Gatica RN SCHOOL Work Phone: no[facility] HospitalKjjcsmfmoa95-55-0294 08:29-0400Body temperature 96.3 [degF]Miriam Gatica RN SCHOOL Work Phone: no[facility] HospitalZpmzmdlfyv48-93-6031 08:29-0400Body .14 kgBrittany Gatica RN SCHOOL Work Phone: no[facility] HospitalLmyazxycly06-13-5020 08:29-0400Diastolic blood gncpdcix71 mm[Hg]Miriam Gatica RN SCHOOL Work Phone: no[facility] HospitalQvblnvbeoc59-21-0593 08:29-0400Heart rate53 /min Miriam Gatica RN SCHOOL Work Phone: no[facility] HospitalOvwphrgadd32-30-1168 08:29-0400Respiratory rate16 /minBrittany Gatica RN SCHOOL Work Phone: [facility] CenterTibotvpcnp55-12-7841 08:29-7974ZjZ5% (BldA) [Mass fraction]95 %Miriam Gatica RN SCHOOL Work Phone: no[facility] HospitalSpnwstyfxb60-67-2756 08:29-0400Systolic blood buihpmet406 mm[Hg]Miriam Gatica RN SCHOOL Work Phone: noResearch [facility] HospitalRufxubcxhg43-88-2424 14:15-0400Body temperature 96.8 [degF]Jeremiah Magaña MD Work Phone: [facility]07-16-2024 14:15-0400 Diastolic blood iqoxxxbs92 mm[Hg]Jeremiah Magaña MD Work Phone: [phone] [place], [place] 6208707-16-2024 14:15-0400 Heart rate64 /Africa Magaña MD Work Phone: [phone] [place], [place] 6208707-16-2024 14:15-0400 Respiratory rate17 /Africa Magaña MD Work Phone: [phone] [place], [place] 6208707-16-2024 14:15-0400 SaO2% (BldA) [Mass fraction]96 %Jeremiah Magaña MD Work Phone: [phone] [place], [place] 6208707-16-2024 14:15-0400 Systolic blood gjahgbnu019 mm[Hg]Jeremiah Magaña MD Work Phone: 1([phone] [place], [place] 6208707-16-2024 13:08-0400 Body nbqosn349.8 cmJeremiah Magaña MD Work Phone: [phone] [place], [place] 6208707-16-2024 13:08-0400 Body mass index (BMI) [Ratio]33 kg/s6QvuyvJeremiah Magaña MD Work Phone: [phone])[address] [place], [place] 6208707-16-2024 13:08-0400 Body propfb339.33 kgJeremiah Magaña MD Work Phone: [phone])[address] [place], [place] 6208704-24-2024 10:30-0400 Diastolic blood uwpaufxz23 mm[Hg]Jeremiah Magaña MD Work Phone: [phone])[address] [place], [place] 6208704-24-2024 10:30-0400 Heart rate71 /Africa Magaña MD Work Phone: 1([phone])[address] [place], [place] 6208704-24-2024 10:30-0400 Respiratory rate16 /Africa Magaña MD Work Phone: 1(968)[address] [place], [place] 6208704-24-2024 10:30-0400 Systolic blood gopmbfck287 mm[Hg]Jeremiah Magaña MD Work Phone: [phone])[address] [place], [place] 6208704-24-2024 09:45-0400 Body olylftywqcp14.2 [degF]Jeremiah Magaña MD Work Phone: [phone] [place], [place] 6208704-24-2024 09:45-0400 SaO2% (BldA) [Mass fraction]95 %Jeremiah Magaña MD Work Phone: [phone])[address] [place], [place] 6208704-24-2024 06:39-0400 Body jeflnn426.8 cmJeremiah Magaña MD Work Phone: [phone] [place], [place] 6208704-24-2024 06:39-0400 Body mass index (BMI) [Ratio]33 kg/c1PbzkrJeremiah Magaña MD Work Phone: 1(672)[address] [place] [address]-24-2024 06:39-0400 Body heguid086.33 kgJeremiah Magaña MD Work Phone: [phone])[address] [place], [place] 6208712-27-2023 09:30-0500 Diastolic blood bnzyuqye63 mm[Hg]Vic Mcrae MD Work Phone: [phone])[address] [place], [place] 6208712-27-2023 09:30-0500 Heart rate62 /Corbin Mcrae MD Work Phone: 1(586)[address] [place], [place] 6208712-27-2023 09:30-0500 Respiratory rate18 /Corbin Mcrae MD Work Phone: [phone])[address] [place], [place] 6208712-27-2023 09:30-0500 SaO2% (BldA) [Mass fraction]96 %Vic Mcrae MD Work Phone: 1(171)[address] [place], [place] 6208712-27-2023 09:30-0500 Systolic blood owhdnxnw731 mm[Hg]Vic Mcrae MD Work Phone: 1([phone])[address] [place], [place] 6208712-27-2023 09:10-0500 Body rasigboedkk48.9 [degF]Vic Mcrae MD Work Phone: 1(511)[address] [place], [place] 6208712-27-2023 07:28-0500 Body .8 cmSgutierrez Mcrae MD Work Phone: [facility]12-27-2023 07:28-0500 Body mass index (BMI) [Ratio]34.29 kg/y4SifpsoVic Mcrae MD Work Phone: [facility]12-27-2023 07:28-0500 Body .41 kgVic Mcrae MD Work Phone: [facility]07-27-2021 14:15-0400 Body focrnq185.8 cmVanessa Yissel Steele Work Phone: 1(432) 277-8017026-3724KD-HrdllxfMcLaren Bay Special Care Hospital Work Phone: [phone]-9260 14:15-0400Body mass index (BMI) [Ratio] 34.87 kg/k7Gotlncss F Cedric Work Phone: 1(613) [phone]-EdscgobMcLaren Bay Special Care Hospital Work Phone: [phone] 14:15-0400Body surface area Derived from formula2.27 q3Ndqzhdvi Yissel PennyCedric Work Phone: 1(434) [phone]-XnmkunqMcLaren Bay [facility] Care Hospital Work Phone: [phone] 14:15-0400Body jdbydsjbzsg64.5 [degF] Vanessa Yissel Cedric Work Phone: 1(876) [phone]-KpigzjkMcLaren Bay [facility] Care Hospital Work Phone: 1(216)[phone] 14:15-0400Body aktxat865.22 kgVanessa Yissel Cedric Work Phone: 1(477) [phone]-JpxuoonMcLaren Bay [facility] Care Hospital Work Phone: 1([phone] 14:15-0400Diastolic blood fywcfskf08 mm[Hg] Vanessa Steele Work Phone: 1(971) [phone]-KrgjtsmMcLaren Bay [facility] Care Hospital Work Phone: 1([phone] 14:15-0400Heart rate76 /minVanessa Steele Work Phone: 1(915) 335-6929845-3775MO-QwsiadkMcLaren Bay Special Care Hospital Work Phone: 1([phone] 14:15-0400Systolic blood ojmiyhen425 mm[Hg] Vanessa Dey Totz Work Phone: 1([phone]-RkycojnCorewell Health [facility] Work Phone: Encounters Encounter DateEncounter TypeCare ProviderFacilityStart: 04-14-2025 End: 98-36-7460Wwkqhg flowsheetNicyaquelinas A Brown DPM Work Phone: noMS [facility] PodiatryStart: 04-14-2025 End: 33-16-4101Cdtihh flowsheetNicholas A Brown DPM Work Phone: noMS [facility] PodiatryStart: 04-14-2025 End: 90-12-6580Qpggom outpatient visit 15 minutesNicyaquelinas A Brown DPM Work Phone: noms [facility]gueta PodiatryComment on above:DJD (degenerative joint disease), ankle and foot, left (Primary Dx); Other specified disorders of synovium, left ankle and footStart: 04-14-2025 End: 87-68-8823jxbtugqtxjSYJGDRQT A BROWNNot AvailableStart: 03-31-2025 End: 20-66-8398Qsdukl flowsheetNicholas A Brown DPM Work Phone: noMS [facility] PodiatryStart: 03-31-2025 End: 21-75-4377Yntfzi flowsheetNicholas A Brown DPM Work Phone: noMS [facility] PodiatryStart: 03-31-2025 End: 21-69-0599swazgpqwovJERDOOHV A BROWNNot AvailableStart: 03-31-2025 End: 91-80-1301Qwiqfu outpatient new 30 minutesNicholas A Brown DPM Work Phone: noMS [facility] PodiatryComment on above:DJD (degenerative joint disease), ankle and foot, left (Primary Dx); Other specified disorders of synovium, left ankle and footStart: 03-29-2025 End: 67-09-8959Ynciac flowsTanya RIBEIRO Work Phone: [facility]Start: 03-29-2025 End: 87-93-0920Lgjidf flowsTanya RIBEIRO Work Phone: [facility]Start: 03-29-2025 End: 20-87-9036ymcawmozohZlmj J Aichholz RN [employer] Work Phone: [facility] Work Phone: Start: 03-29-2025 End: 81-34-4955Uczbuzn encounter procedureTomeka Rosado RN [employer] Work Phone: Start: 03-29-2025 End: 79-80-0639Ppyhed outpatient visit 15 minutesMaaric RIBEIRO Work Phone: NOMS [place] Pos OrthopaedicsComment on above:Acute pain of left shoulder (Primary Dx); Left rotator cuff tear arthropathy; Arthritis of left shoulderStart: 03-29-2025 End: 92-37-7176xbgswygfbiZGZCKZS J MEYERNot AvailableStart: 03-28-2025 End: 94-58-9403dgxsjdjxfqFAVRCRZ [facility]art: 91-61-0342Vlcsvffxcl and management of inpatientOMAR [facility]tart: 03-92-6871Ojncrwvsif and management of inpatientMEAN [facility]tart: 85-94-3252Lsbsplybwg and management of inpatientMEAN [facility]tart: 03-21-2025 End: 77-35-5761Qmmmlbwqna and management of inpatientRAFIK MASSOUniDunlap Memorial Hospitaltart: 18-57-7967Yys-patient / Non-visitPj Hawkins - [facility] Work Phone: Start: 03-13-2025 End: 68-21-1088ycpjiycshdUndh J Aichholmalena RN SCHOOL-C Work Phone: [facility] Work Phone: Start: 03-13-2025 End: 19-40-5099Yesxrsb encounter procedureLisa Marquis Rosado RN SCHOOL-C-[facility] [place] Work Phone: Start: 31-31-0707Cdrtqcz encounter procedureLisa Stricklandz RN SCHOOL-C Work Phone: [facility] Ohiotart: 30-82-5743Plo- patient / Non-visitLi Marquis Stricklandmalena RN SCHOOL-C-[facility] [place] Work Phone: Start: 01-09-2025 End: 64-78-2288Qiuwvn flowsheetLisa Aichholz RN SCHOOL Work Phone: noms CWM FMStart: 01-09-2025 End: 79-14-6469Iwyyhb flowsheetLisa Leeroyhholz RN SCHOOL Work Phone: noms CWM FMStart: 01-09-2025 End: 19-23-3813Lcjbkpstd Result EncounterLisa Umañahholz RN SCHOOL Work Phone: noms External Department UnsolicitedStart: 01-09-2025 End: 55-59-6048Bcukcoc encounter procedureLisa Wongholz RN SCHOOL Work Phone: noms HealthcareComment on above:Encounter for [...] hypertension ; Left ankle swellingStart: 01-09-2025 End: 33-23-9417wnyyhtjudwPCBZ AICHHOLZNot AvailableStart: 12-13-2024 End: 19-90-5677Hgnngp Makayla Rosado RN SCHOOL Work Phone: noms CWM FMStart: 12-13-2024 End: 54-27-7512Ocovca Makayla Rosado RN SCHOOL Work Phone: noms CWM FMStart: 12-13-2024 End: 49-33-2177Pfyrhg outpatient visit 25 minutesLisa Rosado RN SCHOOL Work Phone: noms CWM FMComment on above:Bradycardia (Primary Dx); LLQ pain; Primary malignant neuroendocrine neoplasm of duodenum (HCC); Class 1 obesity due to excess calories with serious comorbidity in adult, unspecified BMI; Type 2 diabetes mellitus with stage 3a chronic kidney disease, without long-term current use of insulin (HCC); Diverticulitis; Primary hypertensionStart: 12-13-2024 End: 36-07-3357wiyrrsuauzTKRK LEEROYCALLUMTim AvailableStart: 12-13-2024 End: 04-64-9201Npuiklqfci hospital visit by Karen Justice PA-C Work Phone: wmh MRIComment on above:Bilateral renal cysts; Adrenal adenoma, leftStart: 84-71-0182flqzypnquhHQTIAntelope Valley Hospital Medical Centertart: 63-27-7535ltmlrduhffLUOBVirginia Hospital Start: 12-08-2024 End: 76-15-7037Fwqecbkqvq hospital visit by Serg Ayala MD Work Phone: wmh LaboratoryComment on above:Bilateral renal cysts; Adrenal adenoma, leftStart: 11-30-2024 End: 53-95-3032Sdmbji Christina RIBERIO Work Phone: noms FB ORTHOPAEDICSStart: 11-30-2024 End: 87-26-1563Pxugkz Christina RIBEIRO Work Phone: noms FB ORTHOPAEDICSStart: 11-30-2024 End: 42-94-6405Dbacxj outpatient visit 15 minutesJenniffer Sears PA Work Phone: noms FB ORTHOPAEDICSComment on above:Acute pain of left shoulder (Primary Dx); Left rotator cuff tear arthropathy; Arthritis of left shoulderStart: 11-30-2024 End: 10-03-5008ddrgjdyhsyBEEIQXV J MEYERNot AvailableStart: 11-28-2024 End: 13-04-6967lmpudgvzooHanb J AichholzFacility:[facility] Ohiotart: 11-28-2024 End: 64-50-6826Snwmie flowsheetLisa Aichholz RN SCHOOL Work Phone: noms CWM FMStart: 11-28-2024 End: 08-38-6115Meweay flowsheetLisa Aichholz RN SCHOOL Work Phone: noms CWM FMStart: 11-28-2024 End: 88-11-7585Cqchnozdn Result EncounterLisa Aichholz RN SCHOOL Work Phone: noms External Department UnsolicitedStart: 11-28-2024 End: 54-49-9399Gkiwmytn Result EncounterLisa Aichholz RN SCHOOL Work Phone: noms External Department UnsolicitedStart: 11-28-2024 End: 95-84-6935Rxmjwu outpatient visit 25 minutesLisa Leeroyhholz RN SCHOOL Work Phone: noms CWM FMComment on above:LLQ pain (Primary Dx); Diverticulosis of sigmoid colon; DiverticulitisStart: 11-28-2024 End: 33-38-7361flggagkpysYJJM AICHHOLZNot AvailableStart: 11-22-2024 End: 75-70-6680psgezrvebbHOEO [facility] Hospitaltart: 10-19-2024 End: 78-39-8170NpvnoiExix Leeroyhholz RN SCHOOL Work Phone: noms CWM FMComment on above:Type 2 diabetes mellitus without complication, unspecified whether terminal clerk insulin useStart: 10-11-2024 End: 00-78-4356GcdazpQzvp Naderer MD Work Phone: noms CWM FMComment on above:Type 2 diabetes mellitus with stage 3a chronic kidney disease, without long-term current use of insulin (HCC) (CMS/HCC)Start: 10-10-2024 End: 04-96-0752Jmlisj flowsheetTomeka Rosado RN SCHOOL Work Phone: NOAD CWM FMStart: 10-10-2024 End: 39-01-5657Hchgne flowsheetTomeka Umañahadrian RN SCHOOL Work Phone: noms CWM FMStart: 10-10-2024 End: 92-85-1536Trjlsq outpatient visit [facility] Alonzo HOBBS Work Phone: noms CWM FMComment on above:Type [...] mellitus (CMS/HCC); Primary hypertension (CMS/HCC)Start: 10-10-2024 End: 98-82-4909owtfbjmzepFNJR LEEROYHYAQUELINZNot AvailableStart: 08-12-2024 End: 26-24-2069Laqzqo Christina RIBEIRO Work Phone: noms FB ORTHOPAEDICSStart: 08-12-2024 End: 88-63-3239Qdzsjx Christina RIBEIRO Work Phone: noms FB ORTHOPAEDICSStart: 08-12-2024 End: 39-24-0896Swcvam outpatient visit 25 minutesJenniffer RIBEIRO Work Phone: noms FB ORTHOPAEDICSComment on above:Acute pain of left shoulder (Primary Dx); Left rotator cuff tear arthropathyStart: 08-12-2024 End: 35-67-4390nxqwtepekvEYWSGQF J MEYERNot AvailableStart: 07-13-2024 End: 21-22-5010Lxluob flowsheetBrittany Gatica RN SCHOOL Work Phone: noms CWM FMStart: 07-13-2024 End: 47-13-6738Gwtigt flowsheetBrittany Gatica RN SCHOOL Work Phone: noms CWM FMStart: 07-13-2024 End: 86-00-1776Ofufhn outpatient visit 15 minutesBrallen Gatica RN SCHOOL Work Phone: noms CWM FMComment on above:Primary hypertension (CMS/HCC) (Primary Dx); Type 2 diabetes mellitus with stage 3a chronic kidney disease, without long-term current use of insulin (HCC) (CMS/HCC); Stage 3a chronic kidney disease (HCC) (CMS/HCC); Mixed hyperlipidemia (CMS/HCC)Start: 07-13-2024 End: 40-34-3283modctybfpaINYFGTUS FITZPATRICKNot AvailableStart: 07-08-2024 End: 11-00-2888FqvwbrLoozcyyk Gatica RN SCHOOL Work Phone: noms CWM FMComment on above:Gastroesophageal reflux disease without esophagitisStart: 06-30-2024 End: 33-77-7959Qoyaohawi Result EncounterGeneric External Data ProviderNOMS External Department UnsolicitedStart: 06-30-2024 End: 47-56-5995Iljxevxmo Result EncounterGeneric External Data ProviderNOMS External Department UnsolicitedStart: 06-30-2024 End: 52-37-3432Fkohgpilwu hospital visit by physicianJeremiah Magaña MD Work Phone: uh [facility] [place] CityComment on above: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)Start: 06-30-2024 End: 78-26-1694oebdaonpyhYPEUY [facility] Centertart: 06-21-2024 End: 21-55-1327Viiaxg outpatient visit 40 minutesNeftali Knowles MD Work Phone: [facility] CenterComment on above: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)Start: 06-21-2024 End: 32-32-4036xwqqryximrOOX M [facility] Hospitaltart: 05-31-2024 End: 94-64-3008scnkywwpmpMSRK [facility] Hospitaltart: 04-14-2024 End: 00-97-9724Mwotyeula Result EncounterBrittany Gatica RN SCHOOL Work Phone: noms External Department UnsolicitedStart: 04-14-2024 End: 33-82-3005Jirknffjh Result EncounterBrittany Gatica RN SCHOOL Work Phone: noms External Department UnsolicitedStart: 04-13-2024 End: 85-99-3822Rmzdjy flowsTanya RIBEIRO Work Phone: noms FB ORTHOPAEDICSStart: 04-13-2024 End: 81-57-6066Qmtqzr flowsTanya RIBEIRO Work Phone: noms FB ORTHOPAEDICSStart: 04-13-2024 End: 05-66-3378Wyweaq outpatient new 45 minutesMattmely RIBEIRO Work Phone: noms FB ORTHOPAEDICSComment on above:Acute pain of left shoulder (Primary Dx); Left rotator cuff tear arthropathyStart: 04-12-2024 End: 28-25-6591Xvjygq flowsheetBrittany Gatica RN SCHOOL Work Phone: noms CWM FMStart: 04-12-2024 End: 31-57-8125Iqanue flowsheetBrittany Gatica RN SCHOOL Work Phone: noms CWM FMStart: 04-12-2024 End: 26-11-7934Ccqpmv outpatient visit 15 minutesMiriam Gatica RN SCHOOL Work Phone: noms CWM FMComment on above:Mixed [...] arthropathy; Chronic pain of right knee; ArthritisStart: 02-23-2024 End: 34-75-4758JtouhfFvlxzyfj Fitzpatrick RN SCHOOL Work Phone: noms CWM FMComment on above:Stage 3a chronic kidney disease (HCC) (CMS/HCC); Type 2 diabetes mellitus with stage 3a chronic kidney disease, without long-term current use of insulin (HCC) (CMS/HCC)Start: 02-03-2024 End: 09-48-4130Plpckirqq Result EncounterSbette Ayala MD Work Phone: noms External Department UnsolicitedStart: 02-03-2024 End: 63-82-6017Qvfrgubbv Result EncounterSbette Ayala MD Work Phone: noms External Department UnsolicitedStart: 12-31-2023 End: 10-96-9509Ocfwieela Result EncounterGeneric External Data ProviderNOMS External Department UnsolicitedStart: 12-31-2023 End: 46-82-7342Caxjcpmvh Result EncounterGeneric External Data ProviderNOMS External Department UnsolicitedStart: 12-31-2023 End: 21-65-8384Zdhfcrzock hospital visit by Rufino Carter [address] [place], [place] [address]Comment on above:Primary malignant neuroendocrine neoplasm of duodenum (Multi)Start: 12-31-2023 End: 87-58-2790znblalbxcwRJO M [facility]tart: 12-29-2023 End: 54-25-8238Vkhanuwwri hospital visit by Carol Magaña MD Work Phone: uh [facility] [place] CityComment on above: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)Start: 10-07-2023 End: 32-95-3941frihdllgciEIQHWOhioHealth Grove City Methodist Hospitaltart: 75-74-5034IsocyrCathie Ayala MD Work Phone: NOXA CWM IMComment on above:Stage 3a chronic kidney disease (HCC) (CMS/HCC) (Primary Dx); Type 2 diabetes mellitus with stage 3a chronic kidney disease, without long-term current use of insulin (HCC) (CMS/HCC)Start: 19-49-4451BziqmuEuvg Naderer MD Work Phone: NOGX CWM FMComment on above:Primary hypertension (CMS/HCC) (Primary Dx)Start: 07-28-2023 End: 51-43-6100Onejxlv encounter procedureGrace Justice PA-C Work Phone: wYANDOT Work Phone: Start: 07-28-2023 End: 70-21-8514Ochimiflvz hospital visit by Karen Justice PA-C Work Phone: W UltrasoundComment on above:Exam for clinical trial Start: 07-17-2023 End: 04-77-8637Gwdjqeizk Result EncounterSbette Ayala MD Work Phone: noms External Department UnsolicitedStart: 07-17-2023 End: 09-34-0362Wqqnuaipm Result EncounterSbette Ayala MD Work Phone: noms External Department UnsolicitedStart: 07-02-2023 ambulatoryKathy LueFacility: BellevueStart: 17-15-1280ndlarcptpvKpqap Lue Facility: [place]Start: 06-10-2023 End: 51-29-8750Hhhsrirdts hospital visit by Blanca Mcrae MD Work Phone: [facility] CenterComment on above:Primary malignant neuroendocrine neoplasm of duodenum (CMS/HCC) (Primary Dx)Start: 05-26-2023 End: 66-97-9325Arcicdptec hospital visit by Rufino [address]Comment on above:Primary malignant neuroendocrine neoplasm of duodenum (CMS/HCC)Start: 23-23-5392zsqczkimszGkVishal KnowlesFacility:[facility] CtrStart: 90-45-9188Mrnhn Varun Steele Work Phone: [phone]-Ieyz GastroenterH[facility] Work Phone: Start: 04-29-2022 End: 39-83-8432adbfqwkyfvVtvre DinaryFacility:9537Start: 56-43-2493BUGYOGdtqgylc F Diller Work Phone: [phone]) [phone]-Mxkx Gastroenterology-Jerry SJW Work Phone: Start: 07-93-4529ficqiupsseIm. Lulu Calle Facility:[id number]: 38-19-3228WGRUIOfcftbvx F Totz Work Phone: [phone]-Utwz Gastroenterology-[place] S[facility]W Work Phone: Start: 83-11-3074oucadbtvisPq. Lulu Calle Facility:[id number]: 80-98-8700qqupqhpjajSi. Neftali Knowles Facility:[facility] CtrStart: 06-04-2021 End: 26-00-9038Nvpsgxjivu and management of inpatientDR VANESSA STEELE Facility:X2Lycot: 59-23-3397stjjrkgktmXk. Neftali KnowlesFacility:[facility] CtrStart: 45-79-1683Szpopf ReviewJonattoñito F Cedric Work Phone: [phone]-Yylkfvepnrfljzvq-[place] SJW [address] DO Work Phone: Start: 24-76-8622Ameso UpdateJonathan F Totz Work Phone: [phone]-Osdowuvhtvnndyvo-[place] S[place]W [address] DO Work Phone: Start: 96-22-2138FXNEUAlsiwrwf F Cedric Work Phone: [facility] Work Phone: Start: 26-36-1223Hhilcmwmm encounterJonathan F Totz Work Phone: [phone]-Pimkjyowursuomuo-[place] S[place]W [address] DO Work Phone: Start: 58-00-0626EKSNUYnbshlct F Cedric Work Phone: [phone]-Hblncjmspfgfinla-[place] S[place]W [address] DO Work Phone: Start: 14-88-8311BHIBPEseudtuh F Cedric Work Phone: [facility] Work Phone: start: 81-68-5211Gtdaeu outpatient visit 15 minutes Vanessa Steele Work Phone: [phone]-GtanfofCorewell Health [facility] Work Phone: start: 89-02-7451Sowoam outpatient new 60 minutes Vanessa Steele Work Phone: [phone]-EzrfdycCorewell Health [facility] Work Phone: start: 81-22-4249Eqymzlshm for preprocedural laboratory examinationDR XAVI Graciela [facility]tart: 11-28-2020 End: 94-66-2774vugqmsplvcKMDVL ROSIPKOFacility:C8Ixofo: 11-26-2020 End: 83-21-6845arbnobttbhNN XAVI THOMPSONFacility:G5Wodqp: 11-26-2020 End: 48-55-6130Dtsphsrft for preprocedural laboratory examinationDR XAVI DONNAFacility:I8Nprax: 06-18-2020 End: 12-05-2942fqjjzzccfwRO VANESSA CEDRICFacility:N8Lccmj: 10-08-2018 End: 00-95-7091Lzdilxx encounter procedureDEFAULT PHYSICIANFacility:[facility] Procedures DateProcedureProcedure DetailPerforming ClinicianStart: 92-42-8199Tvevb ankle complete minimum 3 viewsJonathan Petty DPM Work Phone: Start: 94-28-3695Zayshcbicezcaa aspir&/inj major jt/bursa w/usMattheaby RIBEIRO Work Phone: Start: 67-26-4849Tbmlfc-up visitFollow-upMELINDA TUCKERStart: 75-41-3675LY ANKLE LT MIN 3VLisa Alonzo RN SCHOOL Work Phone: Start: 47-24-6544Aegfs of urea nitrogen quantitative Grace Justice PA-C Work Phone: Start: 34-87-3665Vesvibybbygizd aspir&/inj major jt/bursa w/usMatthew J Sears PA Work Phone: Start: 93-53-3209WA ABDOMEN 1VTomeka Rosado RN SCHOOL Work Phone: Start: 90-72-7022Xfltxbr bacterial quanttative colony count urineTomeka Rosado RN SCHOOL Work Phone: Start: 51-04-4463BJPYQ CULTURE - FRMCTomeka Rosado RN SCHOOL Work Phone: Start: 76-79-9954Tvitgdksbgudus aspir&/inj major jt/bursa w/usMaaric RIBEIRO Work Phone: Start: 24-54-2844Erpghfvyuu glycosylated e9hIbyeciii Gatica RN SCHOOL Work Phone: Start: 14-32-5476Oqw transoral biopsy single/multiple Jeremiah Magaña MD Work Phone: Start: 22-92-4496Guggx iv surg pathology gross&microscopic examJeremiah Magaña MD Work Phone: Start: 01-35-3127Jzbsyms quantitative blood xcpt reagent stripJeremiah Magaña MD Work Phone: Start: 81-39-1765TY GLUCOSE-POCTGeneric External Data ProviderStart: 25-60-7663ZMQ CBC WITH AUTO DIFFBrittany Gatica RN SCHOOL Work Phone: Start: 10-74-7996Iapabtpxqzhkap aspir&/inj major jt/bursa w/o usJenniffer RIBEIRO Work Phone: Start: 46-69-0307Crcod shoulder complete minimum 2 viewsMaaric RIBEIRO Work Phone: Start: 09-57-3881AEJ HEMOGLOBIN Y4LQuiltrShaikh Jamie HERNANDEZ Work Phone: Start: 51-78-6515Bk thorax w/contrast materialGeneric External Data ProviderStart: 47-52-2133Lgv transoral biopsy single/multipleJeremiah Magaña MD Work Phone: Start: 75-82-0679Mcowy iv surg pathology gross&microscopic examJeremiah Magaña MD Work Phone: Start: 89-51-0809CHRIL OXIMETRY, SPOTJeremiah Magaña MD Work Phone: Start: 15-46-1733Wqephil quantitative blood xcpt reagent stripJeremiah Magaña MD Work Phone: Start: 30-04-5563Tpjxj of urea nitrogen quantitative Grace Justice PA-C Work Phone: Start: 50-39-4126NZTSMLNCY PATIENTFAZEL DINARYStart: 47-56-6492IYPBRAKVII ULTRASOUND (UPPER)FAZEL DINARYStart: 32-45-3231UZQJWHIE PATHOLOGY EXAMFAZEL DINARYStart: 70-37-3615YVGNY IN OUTPATIENT/HOSPITAL AMBULATORY SURGERYFAZEL DINARYStart: 23-12-9971Nyjqcqk [Mass/volume] in Serum or PlasmaFAZEL DINARYStart: 50-34-0848Wmt us exam surgical alter stom duodenum/jejunumSalmara Mcrae MD Work Phone: Start: 04-79-3846Ckhmk iv surg pathology gross&microscopic examJeremiah Magaña MD Work Phone: Start: 11-73-4048Offfkff quantitative blood xcpt reagent stripJeremiah Magaña MD Work Phone: Start: 50-88-8637Wttwkroq us procedureGrace Justice PA-C Work Phone: Start: 12-57-9478PI RENAL Santos Ayala MD Work Phone: Start: 19-97-0038FEDZQ OXIMETRY, CONTINUOUSSalmara Mcrae MD Work Phone: Start: 67-07-9320Avb transoral biopsy single/multiple Jazlyn Mcarthur OPERATIONS SUPPORT ANALYST-MANAGER DEPARTMENT Work Phone: start: 18-58-8024RHEJW OXIMETRY, SPOTSgutierrez Mcrae MD Work Phone: Start: 36-57-7759Sefeqch quantitative blood xcpt reagent stripSgutierrez Mcrae MD Work Phone: Start: 26-41-2457Om thorax w/contrast materialJulie N Murumba OPERATIONS SUPPORT ANALYST-MANAGER DEPARTMENT Work Phone: start: 64-90-6558Bmlsu 1996 panel - Serum or PlasmaStj 2Start: 28-06-1995Uuawapb genetics counseling each 30 minutesJonathan F Totz Work Phone: Start: 57-51-0488Pysuwzv genetics counseling each 30 minutesJonathan F Totz Work Phone: Start: 55-07-7375Dqzssvosw of Gallbladder, Percutaneous Endoscopic ApproachDR VANESSA CELSOLERStart: 44-49-5262Izqduqfujmx Vic Mcrae MD Work Phone: AppendectomyJonathan F Cedric Work Phone: Excision of bunionJonathan F Totz Work Phone: Repair of shoulderJonathan F Totz Work Phone: Plan of Treatment DateCare ActivityDetailAuthorStart: 56-33-9915Ztmknlaqr for malignant neoplasm of colonUnMercy Health [facility]: 68-58-4576MHgO/Tdap/Td vaccine (3 - Td or Tdap)DTaP/Tdap/Td vaccine (3 - Td or Tdap)WYANDOTStart: 10-27-2028 DTaP/Tdap/Td Vaccines (4 - Td or Tdap)DTaP/Tdap/Td Vaccines (4 - Td or Tdap) [facility]: 64-14-7707Lkbvv panelLipid Panel [facility]: 01-11-2026 End: 84-51-5756Ilkspft encounter vupyjgfvu75/30/2026 10:30 AM EDT Office Visit [facility] [address] [place] [address] Tomeka oRsado, ANJEL [address] [place] [address] GAYE SALCIDO FMStart: 07-28-2026Medicare Annual Wellness (AWV) Medicare Annual Wellness (AWV)[facility]OMS HealthcareStart: 00-03-4937Tywim screening for proteinDiabetes: Urine Protein ScreeningNOWA HealthcareStart: 08-17-2025 Glaucoma screeningDiabetes: Retinopathy ScreeningNOWA HealthcareStart: 27-74-1927Mizqpwkl mellitus screeningDiabetes ScreeningMemorial Health System Selby General HospitalStart: 04-14-2025 End: 59-61-1635Jlaxmog encounter procedureNOMS Guillermo Argueta PodiatryComment on above:DJD (degenerative joint disease), ankle and foot, left (Primary Dx); Other specified disorders of synovium, left ankle and footStart: 03-31-2025 End: 33-27-9123Dtoibdv encounter ksudizsbs67/17/2025 1:40 PM EDT Office Visit [facility] [address] [place] [address] Jonathan Petty DPM [address] [address] GAYE Argueta PodiatryStart: 03-29-2025 End: 80-29-1721Uitvzza encounter procedureNOMS FB ORTHOPAEDICSComment on above: Acute pain of left shoulder (Primary Dx); Left rotator cuff tear arthropathy; Arthritis of left shoulderStart: 11-19-9327Vckrdqs referralMemorial Health System [facility] Work Phone: Start: 03-13-2025 End: 89-58-8452Sdzylpx encounter qrxmrugda07/29/2025 9:00 AM EDT Office Visit GAYE SALCIDO [address] [place] [address] Tomeka Rosado, ANJEL [address] [place] [address] [facility] FMStart: 82-42-3869Zoswjfhiqk A1c measurement Diabetes: Hemoglobin D0XHEUNSoutheast Missouri Community Treatment CenterStart: 88-96-4282SDLYM-19 Vaccine ( season)COVID-19 Vaccine ( season)[facility] HospitalStart: 69-20-8256QPPDQ-19 Vaccine ( season)COVID-19 Vaccine ( season)[facility] CenterStart: 80-42-1861Rndijshgg vaccination Influenza Vaccine (#1)[facility] CenterStart: 01-31-2025 End: 82-47-5591Alcelvw encounter ghfozkqcy50/19/2025 9:40 AM EDT Office Visit [facility] [address] [place] [address] [place] [address] [place] [phone] [facility] Centertart: 17-54-2721Dwubpiyfd vaccinationGrand Lake Joint Township District Memorial Hospitaltart: 01-09-2025 End: 98-02-5600[place] Ankle - left 3 ViewsXR ankle 3+ views left Imaging Routine Left ankle swelling Expected: 01/09/2025, Expires: 01/09/2026[facility] Work Phone: Comment on above:Expected: 01/09/2025, Expires: 01/09/2026Start: 01-09-2025 End: 09-36-7800Htficwe encounter procedureNOLINDSAY M[facility]ICIP[facility]IND[facility] FMComment on above:Encounter for subsequent annual wellness [...] (HCC); Left adrenal mass (HCC); Mixed hyperlipidemiaStart: 83-44-8568Xaecycdb mellitus screeningDiabetes ScreeningWayne Hospital: 12-27-2024 EsophagogastroduodenoscopyEGDUBlanchard Valley Health System: 12-20-2024 End: 78-86-1344Iugyafc encounter pcjwwvcex14/08/2025 10:15 AM EDT Office Visit [facility] [address] [address] Grace Justice PA-C [address] [place] [address] [address] [place] [address] 1 year f/u with MRI [facility]Comment [facility]:1 year f/u with MRI Start: 12-13-2024 End: 31-40-4720Gdogzjk encounter procedureNOMS CW FMComment on above:Bilateral renal cystLLQ pain (Primary Dx); Primary malignant neuroendocrine neoplasm of duodenum (HCC); Class 1 obesity due to excess calories with serious comorbidity in adult, unspecified BMI; Type 2 diabetes mellitus with stage 3a chronic kidney disease, without long-term current use of insulin (HCC); DiverticulitisStart: 12-09-2024 End: 18-33-1108Igyqibn encounter evkedlyve08/27/2025 9:00 AM EDT Office Visit [facility] [address] [place] [address] Jenniffer Sears PA [address] [facility] [address] [place] [address] NOMS FB ORTHOPAEDICSStart: 11-30-2024 End: 02-64-1779Ymwucoj encounter procedureNOMS FB ORTHOPAEDICSComment on above: Acute pain of left shoulder (Primary Dx); Left rotator cuff tear arthropathyStart: 90-91-6941HCQ test (Diabetes, CKD 3-4, OR last GFR 15-59)GFR test (Diabetes, CKD 3-4, OR last GFR 15-59)WYANDOTStart: 11-28-2024 End: 87-30-6443Peknxvcw identified in Urine by CultureNOWA HealthcareComment on above:Expected: 11/28/2024 (Approximate), Expires: 11/28/2025Start: 11-28-2024 End: 95-13-3282OJJ W Auto Differential panel - BloodCBC and differential Lab Routine Diverticulosis of sigmoid colon LLQ pain Expected: 11/28/2024 (Appr oximate), Expires: 11/28/2025[facility] Work Phone: Comment on above:Expected: 11/28/2024 (Approximate), Expires: 11/28/2025Start: 11-28-2024 End: 27-66-3107Wdaohakrbhxpv metabolic 2000 panel - Serum or PlasmaComprehensive metabolic panel Lab Routine Diverticulosis of sigmoid colon LLQ pain Expected: 11/28/2024 (Approximate), Expires: 11/28/2025NOMS HealthcareComment on above: Expected: 11/28/2024 (Approximate), Expires: 11/28/2025Start: 11-28-2024 End: 76-86-9211Cvzvhlbfcmy sedimentation rateSedimentation rate, automated Lab Routine Diverticulosis of sigmoid colon LLQ pain Expected: 11/28/2024 (Approximate), Expires: 11/28/2025[facility] HealthcareComment on above:Expected: 11/28/2024 (Approximate), Expires: 11/28/2025Start: 11-28-2024 End: 92-46-0628Cahubgw encounter lbqjeyxii49/16/2025 2:00 PM EDT Office Visit [facility] [address] [place] [address] Tomeka Rosado NP [address] [place] [address] [facility]NOMCBR[facility] CITYM FMComment on above:ArrivedStart: 11-28-2024 End: 54-35-8447Wlahfgndez complete panel - UrineUrinalysis with reflex microscopic (clean catch) Lab Routine Diverticulosis of sigmoid colon LLQ pain Expected: 11/28/2024 (Approximate), Expires: 11/28/2025[facility] HealthcareComment on above:Expected: 11/28/2024 (Approximate), Expires: 11/28/2025Start: 10-11-2024 Hemoglobin A1c measurementDiabetes: Hemoglobin S7ZWPPMSoutheast Missouri Community Treatment CenterStart: 10-10-2024 End: 38-69-2831Ytoau metabolic 1998 panel - Serum or PlasmaBasic metabolic panel Lab Routine Type 2 diabetes mellitus with stage 3a chronic kidney disease, wit hout long-term current use of insulin (HCC) ([facility]) Expected: 10/10/2024 (Approximate), Expires: 10/10/2025[facility] Healthcare Work Phone: Comment on above:Expected: 10/10/2024 (Approximate), Expires: 10/10/2025Start: 10-10-2024 End: 98-12-0108Fqtmmorhzo A1c/Hemoglobin.total in BloodHemoglobin A1c Lab Routine Screening for prostate cancer Expected: 10/10/2024 (Approximate), Expires: 10/10/2025[facility] HealthcareComment on above:Expected: 10/10/2024 (Approximate), Expires: 10/10/2025Start: 10-10-2024 End: 48-18-8275Ehexnexwftzf/Creatinine panel in random UrineMicroalbumin / creatinine, urine ratio Lab Routine Type 2 diabetes mellitus with stage 3a chronic kidney disease, without long-term current use of insulin (HCC) ([facility]) Expected: 10/10/2024 (Approximate), Expires: 10/10/2025[facility] HealthcareComment on above:Expected: 10/10/2024 (Approximate), Expires: 10/10/2025Start: 10-10-2024 End: 53-35-3839Xtpwj [Mass/volume] in Serum or PlasmaUric acid Lab Routine Mixed hyperlipidemia ([facility]) Expected: 10/10/2024 (Approximate), Expires: [facility] HealthcareComment on above:Expected: 10/10/2024 (Approximate), Expires: 10/10/2025Start: 10-10-2024 End: 97-38-3555Dwnafsjspy complete panel - UrineUrinalysis with reflex microscopic (clean catch) Lab Routine Type 2 diabetes mellitus with stage 3a chronic kidney disease, without long-term current use of insulin (HCC) (CMS/HCC) Expected: 10/10/2024 (Approximate), Expires: 10/10/2025[facility] HealthcareComment on above:Expected: 10/10/2024 (Approximate), Expires: 10/10/2025Start: 10-10-2024 End: 17-35-5649Ramyuwx encounter procedureNOMS CWM FMComment on above: Gastroesophageal reflux disease without esophagitis (Primary Dx); Primary malignant neuroendocrine neoplasm of duodenum (CMS/HCC); Benign prostatic hyperplasia with lower urinary tract symptoms, symptom details unspecified; Obesity (BMI 30-39.9); Morbid obesity (CMS/HCC); Type 2 diabetes mellitus with stage 3a chronic kidney disease, without long-term current use of insulin (HCC) ([facility]/HCC); Gout, unspecified cause, unspecified chronicity, unspecified site; Mixed hyperlipidemia ([facility]); Class 1 obesity due to excess calories with serious comorbidity in adult, unspecified BMI; Screening for prostate cancerStart: 06-32-6708Sxxtagvh mellitus screening Diabetes ScreeningMemorial Health System Selby General HospitalStpamplico: 08-12-2024 End: 78-37-0966Acjuwwt encounter procedureNOMS FB ORTHOPAEDICSComment on above: Acute pain of left shoulder (Primary Dx)Start: 07-13-2024 End: 39-60-6373Vhjueuf encounter procedureNOMS CWM FMComment on above:Arrived Start: 22-63-3944MmsvtonafnlkeucnrlgxzjxrkqIEKXprjoxbmkz [facility] Start: 06-21-2024 End: 81-69-0900Effnmdh encounter /07/2025 9:40 AM EST Office Visit [facility] [address] [place] [address] [place] [address] [place] [address] [facility]ertart: 79-05-3927Jlafhslt mellitus screeningDiabetes ScreeningWayne Hospital: 84-23-4678Ywjzvcmmid A1c measurementDiabetes: Hemoglobin F6TGOIISoutheast Missouri Community Treatment CenterStart: 04-13-2024 End: 11-52-0606Bofstoc encounter havbfibzj21/30/2024 9:00 AM EDT Office Visit [facility] [address] [place] [address] Jenniffer Sears, GEMA [address] [facility] [address] [place] [address] Acute pain of left shoulder (Primary Dx); Left rotator cuff tear arthropathy; Chronic pain of right knee; ArthritisNOMS FB ORTHOPAEDICS Comment on above:Acute pain of left shoulder (Primary Dx); Left rotator cuff tear arthropathy; Chronic pain of right knee; ArthritisStart: 04-12-2024 End: 88-03-7024VQY W Auto Differential panel - BloodCBC and differential Lab Routine Primary hypertension (CMS/HCC) Type 2 diabetes mellitus with wfcka2w chronic kidney disease, without long-term current use of insulin (HCC) (CMS/HCC) Stage 3a chronic kidney disease (HCC) ([facility]CC) Expected: 04/12/2024 (Approximate), Expires: 04/12/2025[facility] HealthcareComment on above:Expected: 04/12/2024 (Approximate), Expires: 04/12/2025Start: 04-12-2024 End: 39-65-5041Pexxpiviwmelm metabolic 2000 panel - Serum or PlasmaComprehensive metabolic panel Lab Routine Primary hypertension (CMS/HCC) Type 2 diabetes mellitus with stage 3a chronic kidney disease, without long-term current use of insulin (HCC) (CMS/HCC) Stage 3a chronic kidney disease (HCC) (CMS/HCC) Expected: 04/12/2024 (Approximate), Expires: 04/12/2025[facility] HealthcareComment on above:Expected: 04/12/2024 (Approximate), Expires: 04/12/2025Start: 04-12-2024 End: 43-10-8406Pnstojzqyj A1c/Hemoglobin.total in BloodHemoglobin A1c Lab Routine Type 2 diabetes mellitus with stage 3a chronic kidney disease, without long-term current use of insulin (HCC) (CMS/HCC) Expected: 04/12/2024 (Approximate), Expires: 04/12/2025[facility] HealthcareComment on above:Expected: 04/12/2024 (Approximate), Expires: 04/12/2025Start: 04-12-2024 End: 23-55-6561Vyere 1996 panel - Serum or PlasmaLipid panel Lab Routine Mixed hyperlipidemia (CMS/HCC) Expected: 04/12/2024 (Approximate), Expires:04/12/2025 [facility] HealthcareComment on above:Expected: 04/12/2024 (Approximate), Expires: 04/12/2025Start: 04-12-2024 End: 81-75-8001Kmzbuet encounter procedureNOLINDSAY M[facility] FMComment on above:Arrived Start: 36-98-1079Inwidwtkqdz Syncytial Virus (RSV) or age 60 yrs+ (1 - 1-dose 75+ series)Respiratory Syncytial Virus (RSV) or age 60 yrs+ (1 - 1-dose 75+ series)[facility] Hospitaltart: 83-22-3406Ostwk screening for proteinDiabetes: Urine Protein ScreeningNOWA HealthcareStart: 02-25-2024 Medicare Annual Wellness (AWV)Medicare Annual Wellness (AWV)[facility] Start: 58-46-6865OQSBO-19 Vaccine ( season)COVID-19 Vaccine ( season)[facility] HospitalStart: 66-18-4781IUZMS-19 Vaccine ( season)COVID-19 Vaccine ( season)[facility] Hospitaltart: 02-02-0540Xvdbunbwx vaccinationInfluenza Vaccine (#1) [facility] HealthcareStart: 12-31-2023 End: 43-54-0889Wmnagnz encounter dxseokgnc69/18/2024 7:30 AM EDT Appointment [facility] [address] [place] [address] [facility]: 12-07-2023 End: 10-07-7418Tyzmqzu encounter tnefphkxq51/24/2024 10:30 AM EDT Office Visit [facility] [place] [address] Grace Justice PA-C [address] [place] [address] [address] 3 month f/u with MRI and PVRWyandot Specialty Providers on Uc HealthComment on above:3 month f/u with MRI and PVRStart: 83-47-7281Lmkrapyhus hospital visit by physician 12/01/2023 9:30 AM EDT Hospital Encounter [facility] [address] [place] [id number] [facility] MRIStart: 23-22-7863Rfmzoiqpys A1c measurementDiabetes: Hemoglobin C6RXJMBSoutheast Missouri Community Treatment CenterStart: 32-78-5591DOWQM-19 Vaccine ( season)COVID-19 Vaccine ( season)[facility] HospitalStart: 08-11-2023 End: 99-89-0239Audymce encounter /27/2024 9:15 AM EST Office Visit [facility] [address] [place] [address] Shaikh Ayala MD [address] [place] [address] [facility] LOLY IMStart: 23-33-0241Safxgt Wellness Visit (Medicare) Annual Wellness Visit (Medicare)WYANDOTStart: 07-31-2023 End: 12-26-4018Ninqxda encounter pjatknvdn03/16/2024 9:30 AM EST Office Visit [facility] on [address] [address] Grace Justice PA-C [address] [place] [address] Dr [address] [place] [address] N28.1 - Renal cyst, leftWyandot Specialty Providers on Uc HealthComment on above:N28.1 - Renal cyst, leftStart: 27-77-4715NGISX-19 Vaccine (4 - Pfizer series)COVID-19 Vaccine (4 - Pfizer series)[facility]: 06-18-2023 End: 13-28-1372Fbbblqb encounter bbmvltnyd82/04/2024 12:40 PM EST Office Visit [facility] [address] [place] [address] [place] [address] [place] [address] [facility]: 06-10-2023 End: 63-70-9075Juzysde encounter genemvcjg60/27/2023 8:30 AM EST Appointment [facility] [address] [place] [address] [place] [address] [facility] [address], [address] [address] [facility]art: 44-33-5266Sbhfqsyh mellitus screeningDiabetes ScreeningMemorial Health System Selby General HospitalStart: 64-50-4921GNOJMV, Provider: Jeremiah Magaña, Status: Pen, Time: 7:30 AMEGDANS, Provider: Jeremiah Magaña, Status: Pen, Time: 7:30 AM VY-Pezlcflg-Wpezzpfg [address] Work Phone: Start: 84-35-6386IGI, Provider: Deb Zavala, Status: Pen, Time: 11:20 AMNPV, Provider: Deb Zavala, Status: Pen, Time: 11:20 AM LJ-Nlgabgrl-Ycoeffbo [address] Work Phone: Start: 98-81-3617Dzwhj screening for proteinDiabetes: Urine Protein ScreeningSoutheast Missouri Community Treatment CenterStart: 13-35-7488RRNZAU, Provider: Irwin Cespedes, Status: Pen, Time: 8:30 AMEGDANS, Provider: Irwin Cespedes, Status: Pen, Time: 8:30 BZDY-Nxciadwmtjrsnxsu-Ipzpzwmn SJW [address] DO Work Phone: Start: 16-64-2623FRENVD, Provider: Irwin Cespedes, Status: Pen, Time: 10:30 [facility], Provider: Irwin Cespedes, Status: Malcolm, Time: 10:30 AMVeterans Health Administration Work Phone: Start: 41-28-2431Nkqxblby screeningDiabetes: Retinopathy ScreeningNOMS HealthcareStart: 67-35-9522WLpP/Tdap/Td Vaccines (3 - Td or Tdap)DTaP/Tdap/Td Vaccines (3 - Td or Tdap)[facility] HealthcareStart: 15-59-3625Yalhndif vaccine (2 of 3)Shingles vaccine (2 of 3)WYANDOTStart: 92-29-6353Nlrfbi Vaccines (2 of 3)Zoster Vaccines (2 of 3)[facility]: 78-12-8756Uwafycnyq aortic aneurysm screeningAbdominal Aortic Aneurysm (AAA) ScreeningWayne Hospital: 2009 Hepatitis B Vaccines (1 of 3 - Risk 3-dose series)Hepatitis B Vaccines (1 of 3 - Risk 3-dose series)[facility] 2009 Respiratory Syncytial Virus (RSV) or age 60 yrs+ (1 - 1-dose 60+ series)Respiratory Syncytial Virus (RSV) or age 60 yrs+ (1 - 1-dose 60+ series)WYANDOTStart: 38-68-3450ORZ patients and/or patients aged 60+ years (1 - 1-dose 60+ series)RSV patients and/or patients aged 60+ years (1 - 1-dose 60+ series)[facility]: 1994 Screening for malignant neoplasm of colonWYANDOTStart: 19-67-7973Xskvh panel LipidsWYANDOTStart: 67-78-9429Ctrjxprae A Vaccines (1 of 2 - Risk 2-dose series) Hepatitis A Vaccines (1 of 2 - Risk 2-dose series)[facility]: 38-71-0467Eszvwacaj C screeningUnAshtabula General Hospital Start: 00-39-7897Rkyjnoqaqd ScreenDepression ScreenWYANDOTStart: 85-46-4723Zomhh panelLipidsWYANDOTStart: 1949Medicare Annual Wellness VisitMedicare Annual Wellness Visit (AWV)[facility] HospitalStart: 1949 Screening for malignant neoplasm of colonMemorial Health System [facility] Hospital End: 37-48-6941BE Chest and Abdomen and Pelvis W [facility] Work Phone: comment on above:Once for 1 Occurrences starting 05/26/2023 until 05/26/2023 End: 32-26-7936KE Chest W contrast [facility] Service Area Work Phone: comment on above:Once for 1 Occurrences starting 12/31/2023 until 12/31/2023Microalbumin/Creatinine panel in random Urine Microalbumin / creatinine urine ratio Lab Routine Primary hypertension (CMS/HCC) Type 2 diabetes mellitus with stage 3a chronic kidney disease, without long- term current use of insulin (HCC) (CMS/HCC) Stage 3a chronic kidney disease (HCC) (CMS/HCC) Ordered: 04/12/2024[facility] Work Phone: Comment on above:Ordered: 04/12/2024 End: 93-83-6215Vsuftndh SedationModerate Sedation Procedures Routine Once for 1 Occurrences starting 10/07/2023 until 10/07/2023[facility] Work Phone: Comment on above:Once for 1 Occurrences starting 10/07/2023 until 10/07/2023 End: 40-02-4693Qkcxrgbl SedationModerate Sedation Procedures Routine Once for 1 Occurrences starting 12/29/2023 until 12/29/2023[facility] Work Phone: Comment on above:Once for 1 Occurrences starting 12/29/2023 until 12/29/2023 End: 25-01-9730UX Abdomen WO and W contrast IVWSWA[facility]ALT Work Phone: comment on above:1 Occurrences starting 12/01/2023 until 12/01/2023 End: 92-03-4846UU Abdomen WO and W contrast IVAd[facility] Centert [facility] Work Phone: comment on above:1 Occurrences starting 12/13/2024 until 12/13/2024Patient [facility] Work Phone: End: 63-06-5354Tcffl oximetry, continuousPulse oximetry, continuous Respiratory Care Routine Continuous until discontinued starting 10/07/2023[facility] Work Phone: Comment on above:Continuous until discontinued starting 10/07/2023 End: 66-05-4466Zsxbg oximetry, spotPulse oximetry, spot Respiratory Care Routine Once for 1 Occurrences starting 10/07/2023 until 10/07/2023[facility] Work Phone: Comment on above:Once for 1 Occurrences starting 10/07/2023 until 10/07/2023Surgical pathology [facility] Work Phone: Comment on above:Release Upon Ordering for 1 Occurrences starting 06/10/2023Release Upon Ordering for 1 Occurrences starting 06/10/2023, 1 completedrgical pathology [facility] Work Phone: Comment on above:Release Upon Ordering for 1 Occurrences starting 10/07/2023, 1 completedrgical pathology [facility] Work Phone: Commpjb on above:Release Upon Ordering for 1 Occurrences starting 12/29/2023, 1 completedSurgical pathology [facility] Work Phone: Comgopo on above:Release Upon Ordering for 1 Occurrences starting 06/30/2024, 1 completedURINE CULTURE - [facility] Lab Routine 11/28/2024 2:55 PM [facility] Work Phone: Immunizations Immunization DateImmunizationNotesCare BwvewjwdOfdgnnlq92-59-8189VQY, recombinant, protein subunit RSVpreF, adjuvant reconstitu, 120mcg/0.5mL, PF (Arexvy)Tomeka Rosado RN SCHOOL Work Phone: MiroiResearch Belton HospitalEtlcsewzph62-18-8699Ryfezmae trivalent influenza vaccine, adjuvanted, preservative freeTomeka Rosado RN SCHOOL Work Phone: [facility] CenterUhvjeyvmdg53-55-1183kfyigxqcf virus vaccine, unspecified formulationAguedaenrrique LauraGatica NP Work Phone: noResearch Belton HospitalNdxevjxtgh25-91-8708Gsjzbhsju, High-dose Seasonal, Quadrivalent, Preservative FreeGerald Low MD Work Phone: noResearch Belton HospitalMbocexobnx47-73-6380hrfeyrugg virus vaccine, unspecified formulationJeremiah Magaña MD Work Phone: [facility] Work Phone: [phone] polysaccharide vaccine, 23 valentMarc Maranda HERNANDEZ Work Phone: noResearch Belton HospitalGxjkvhxysh08-94-7906Mbouykfnj, High-dose Seasonal, Quadrivalent, Preservative FreeJordana Maranda HERNANDEZ Work Phone: noResearch Belton HospitalVihpvfvayk56-06-3586Srbfssihw 30 MCG/0.3ML Intramuscular SuspensionJonathan F Cedric Work Phone: [phone]-Qcversft-[place] [address] Work Phone: [phone]-UqkRNxaj COVID-19 Vacc 30 MCG/0.3ML Intramuscular SuspensionJonathan F Totz Work Phone: [phone]-Vpvmdjxa-[place] [address] Work Phone: [phone] High-Dose Quadrivalent 0.7 ML Intramuscular Suspension Prefilled SyringeJonathan F Totz Work Phone: [phone]-Mxwehhqx-[place] [address] Work Phone: [phone]-IpbLAirs COVID-19 Vacc 30 MCG/0.3ML Intramuscular SuspensionJonathan F Totz Work Phone: [phone]-YxosteeCorewell Health [facility] Work Phone: [phone]-IidFUkse COVID-19 Vacc 30 MCG/0.3ML Intramuscular SuspensionJonathan F Cedric Work Phone: [phone]-FxqwutnCorewell Health [facility] Work Phone: [phone] High-Dose Quadrivalent 0.7 ML Intramuscular Suspension Prefilled SyringeVanessa Steele Work Phone: [phone]-ChmdyosCorewell Health [facility] Work Phone: [phone]gh, high dose seasonal, preservative-freeVanessa F Cedric Work Phone: [phone]-YvabhsbCorewell Health [facility] Work Phone: [phone]sdpzweyxgys conjugate vaccine, 13 valent Vanessa Steele Work Phone: [phone]-HaqrbeqCorewell Health [facility] Work Phone: [phone] and diphtheria toxoids, adsorbed, preservative free, for adult use (2 Lf of tetanus toxoid and 2 Lf of diphtheria toxoid)Gerald Low MD Work Phone: [place] [address]Vagrjzkecp96-29-4882luplbyq toxoid, reduced diphtheria toxoid, and acellular pertussis vaccine, adsorbedJoabhi F Cedric Work Phone: [phone]-UunispmCorewell Health [facility] Work Phone: [phone] conjugate vaccine, 13 valent Vanessa F Cedric Work Phone: [phone]-XcndrzwCorewell Health [facility] Work Phone: [phone], high dose seasonal, preservative-freeVanessa F Totz Work Phone: [phone]-MzisbrjCorewell Health [facility] Work Phone: [phone]uier, high dose seasonal, preservative-freeJonathan F Totz Work Phone: [phone]-ZwplxwnCorewell Health [facility] Work Phone: [phone]aq vaccine, liveJeanienattoñito F Cedric Work Phone: [phone]-YzponyrCorewell Health [facility] Work Phone: [phone]bkuq vaccine, liveVanessa Steele Work Phone: XI-IgzteqdCorewell Health [facility] Work Phone: [phone]kv, seasonal, injectable, preservative freeJeanienathan F Cedric Work Phone: JD-NdorvxgCorewell Health [facility] Work Phone: [phone], seasonal, injectable, preservative freeJeanienathan F Totz Work Phone: HY-NisermbCorewell Health [facility] Work Phone: [phone] toxoid, reduced diphtheria toxoid, and acellular pertussis vaccine, adsorbedJeanienathan F Cedric Work Phone: HH-FziepohCorewell Health [facility] Work Phone: [phone] jbebtqaac-W2G6-29, preservative-free, injectableJonattoñito F Cedric Work Phone: WI-TvkrjijCorewell Health [facility] Work Phone: [phone]wzkyxfd polysaccharide vaccine, 23 valentVanessa Steele Work Phone: SJ-NmgyqclCorewell Health [facility] Work Phone: Payers DatePayer CategoryPayerPolicy [id number]-pay2017Medicare [id number] 2017Medicaid [id number] 2017Medicare (Managed Care) GENERIC MEDICARE ADVANTAGE .[id number]. Private Health [id number].[id number] [id number] 2.0.1.191972.3.57[id number] 2.0.1.522898.3.57[id number] 2.0.1.589244.3.57[id number] 2.840.1.706859.3.57[id number] 2.840.1.157330.3.57[id number] 2.0.1.130923.3.57[id number] 2.16840.1.272878.3.57[id number] 2.840.1.104015.3.57[id number] 2.16840.1.865389.3.57[id number] 2.16840.1.254846.3.57[id number] 2.16.840.1.325737.3.57[id number] 2.16.840.1.979711.3.57[id number] 2.16.840.1.300993.3.57[id number] 2.16840.1.478203.3.57[id number] 2.16840.1.324542.3.57[id number] 2.16840.1.233891.3.57[id number] 2.0.1.047298.3.57[id number] 2.16840.1.606456.3.57[id number] 2.16840.1.646689.3.57[id number] 2.840.1.736707.3.57[id number] 2.16840.1.267623.3.579.2.4[id number] 2.16840.1.071981.3.57[id number] 2.16.840.1.541290.3.57[id number] 2.16840.1.315194.3.57[id number] 2.16.840.1.226724.3.57[id number] 2.16.840.1.489276.3.57[id number] 2.16.840.1.669289.3.57[id number] 2.16.840.1.164692.3.579.2.583035-61-2801Pbznurw7327090 2.16.840.1.942953.3.57[id number] 2.16.840.1.294409.3.57[id number] 2.840.1.604995.3.579.2.196034-68-5227Vqnrnkr Health [id number] [id number] 2.16.840.1.758750.3.579.2.531 Social History DateTypeDetailFacilityStart: 06-10-2023 End: 98-55-9959Xxg-smokerNon-smokerSoutheast Missouri Community Treatment CenterTobacco smoking status NHIS Tobacco smoking consumption unknownMemorial Health System [facility] Work Phone: Start: 76-25-8845Eej Assigned At BirthNot on [facility] Work Phone: Start: 06-10-2023 End: 93-60-2821Bhosdn identityNot on [facility] CenterStart: 05-12-2023 End: 15-10-6497Ncdqxcmt to SARS-CoV-2 (event)Not sureMemorial Health System Selby General HospitalStart: 06-10-2023 End: 83-53-1381Imqpqjx smoking status NHISEx-smokerMemorial Health System [facility]by General Hospital Work Phone: Start: 06-15-1969 End: 60-46-9447Yxedjyu of tobacco useCurrent smokerMemorial Health System [facility] Hospital Work Phone: Start: 06-15-1969 End: 92-13-0972Sirffxx of tobacco useCigarette SmokerMemorial Health System [facility] Work Phone: Start: 06-10-2023 End: 82-85-4160Ztvkyjp use and exposureSmokeless tobacco non-userMemorial Health System [facility] Hospital Work Phone: Start: 06-10-2023 End: 02-93-5362Cdbdjop intakeCurrent drinker of alcohol (finding)[facility] Work Phone: Start: 89-00-3538Xuzqxru CommentSocialMemorial Health System [facility] Work Phone: Within the last year, have you been afraid of your partner or ex-partner?NoNOMS HealthcareStart: 05-10-2022 End: 07-13-1562Bdp often do you attend [facility] or [facility] services?Patient refusedNOMS HealthcareAre you now , , [...] got money to buy more.Never trueNOMS HealthcareStart: 50-56-7095Nlxnbff Comment caffeine: noneNOMS HealthcareStart: 44-07-7255Qctakh identityIdentifies as male gender (finding)[facility] HealthcareStart: 76-47-6847Kpjfjl orientationHeterosexual (finding)[facility] HospitalStart: 38-09-2079Nrngzba smoking status NHISNever smoked tobaccoWYANDOT Work Phone: start: 09-07-2023 End: 20-03-1095Umjwpbo intakeEx-drinker (finding)[facility] Work Phone: start: 71-33-9863Vwiuvit CommentOCCASSIONA;[facility] HealthcareStart: 62-27-4195Tupvypo CommentOCCASSIONALGUNNISON VALLEY HOSPITAL HealthcareStart: 55-52-8517Yfm assigned at [facility] Work Phone: How often do you have 6 or more drinks on 1 occasion? NeverNOMS HealthcareHow often do you need to have someone help you when you read instructions, pamphlets, or other written material from your doctor or pharmacy [SILS]RarelyNOWA HealthcareStart: 35-02-2183ZyzLphv (finding)[facility] CenterNEGATED: Highlighted rowStart: NINFHistory of tobacco usePassive smoker [facility] Medical Equipment Procedure CodeEquipment CodeEquipment Original TextEquipment IdentifierDates Generic Supply 08 Case [id number]: 82-83-8209Kbycjsb on above: Description: Converted from [facility] Acute. Please see archived information for full log information.USE DIRECTED ONCE [id number]: 06-22-2023 End: 82-37-6942DGC DIRECTED ONCE [id number]: each by Other route Daily dailyUse as [id number]: 10-19-2024 End: 01-27-2025 Functional Status ZvzdRloyuymmxrUpcittRgvpvblp68-59-4217Rblnaxm Health Questionnaire 2 item (PHQ- 2) [Reported][facility] CenterKymgvnoqog00-97-9211Gcfxz score [AUDIT-C]1 07/06/2024 10:56 AM EST Mychart, GenericSoutheast Missouri Community Treatment CenterHqexintozn30-34-5000Nof often do you have a drink containing alcohol?Monthly or less 07/06/2024 10:56 AM EST Mychart, Generic Monthly or lessNOResearch Belton HospitalDtnywgeeqw01-25-7901Wkx many standard drinks containing alcohol do you have on a typical day?1 or 2 07/06/2024 10:56 AM EST Mychart, Generic 1 or 2NOMS Lspvvtlmcg87-28-5022Jjs often do you have 6 or more drinks on 1 occasion?Never 07/06/2024 10:56 AM EST Mychart, Generic NeverS[facility] Center 45-12-9545NsnszgdstzAshtabula General Hospital Work Phone: 1([phone]) [phone] - suicide severity rating scale screener - recent [C-SSRS][facility] Work Phone: 1([phone]) [phone]x Health Questionnaire 2 item (PHQ-2) [Reported][facility] CenterTtqyvzqebk11-26-1728GjzrvemypsAshtabula General Hospital Work Phone: [phone]) [phone] - suicide severity rating scale screener - recent [C-SSRS][facility] Work Phone: 1([phone]) [phone]yAshtabula General Hospital Work Phone: [phone]) [phone] Health Questionnaire 2 item (PHQ-2) [Reported][facility] CenterUn[facility] Mental Status WqefSrzyuicqtsAztgaaVsxuxxtr26-22-6252Gepizolzs function findingNegative 12/29/2023 2:25 PM EDT Subha Urrutia, ALONSO [facility] Clinical Notes 11-28-2020 to 04-14-2025 Note Date & FkaiJcqcVoorfntp68-22-3094 History of Present illness Narrative* Jonathan Petty DPM - 04/14/2025 2:00 PM EDT Patient: Yusef Car : 1950 [...] Strain: Low Risk (03/21/2025) Received from [facility] Overall Financial Resource Strain (CARDIA) Difficulty of Paying Living Expenses: Not hard at all Food Insecurity: No Food Insecurity (03/21/2025) Received from [facility] Hunger Vital Sign Within the past 12 months, you worried that your food would run out before you got the money to buymore.: Never true Ran Out of Food in the Last Year: Not on file Transportation Needs: No Transportation Needs (03/21/2025) Received from [facility] Transportation In the past 12 months, has lack of transportation kept you from medical appointments or from getting medications?: No Lack of Transportation (Non-Medical): Not on file Physical Activity: Insufficiently Active (07/06/2024) Exercise Vital Sign Days of Exercise per Week: 2 days Minutes of Exercise per Session: 30 min Stress: No Stress Concern Present (07/06/2024) [employer] - Occupational Stress Questionnaire Feeling of Stress : Only a little Social Connections: Unknown (07/06/2024) Social Connection and Isolation Panel Frequency of Communication with Friends and Family: More than three times a week Frequency of Social Gatherings with Friends and Family: Once a week Attends Jainism Services: Patient declined Active Member of Clubs or Organizations: No Attends Club or Organization Meetings: Never Marital Status: Intimate Partner Violence: Unknown (03/21/2025) Received from [facility] Humiliation, Afraid, Rape, and Kick questionnaire Within the last year, have you been afraid of your partner or ex-partner?: No Emotionally Abused: Not on file Physically Abused: Not on file Sexually Abused: Not on file Housing Stability: Low Risk (03/21/2025) Received from [facility] Housing Stability Vital Sign In the last 12 months, was there a time when you were not able to pay the mortgage or rent on time?: No In the past 12 months, how many times have you moved where you were living?: 0 At any time in the past 12 months, were you homeless or living in a half-way (including now)?: No ROS: General: denies fever, [...] Brace in the future was discussed Jonathan Petty DPM [1] Allergies Allergen Reactions [...] Daily, Disp: , Rfl: documented in this encounterSoutheast Missouri Community Treatment CenterOmnqhodtso61-64-1247 History of Present illness Narrative* Jonathan Souza Chapo, DPM - 03/31/2025 1:40 PM EDT Patient: [...] Strain: Low Risk (03/21/2025) Received from [facility] Overall Financial Resource Strain (CARDIA) Difficulty of Paying Living Expenses: Not hard at all Food Insecurity: No Food Insecurity (03/21/2025) Received from [facility] Hunger Vital Sign Within the past 12 months, you worried that your food would run out before you got the money to buymore.: Never true Ran Out of Food in the Last Year: Not on file Transportation Needs: No Transportation Needs (03/21/2025) Received from [facility] Transportation In the past 12 months, has lack of transportation kept you from medical appointments or from getting medications?: No Lack of Transportation (Non-Medical): Not on file Physical Activity: Insufficiently Active (07/06/2024) Exercise Vital Sign Days of Exercise per Week: 2 days Minutes of Exercise per Session: 30 min Stress: No Stress Concern Present (07/06/2024) [employer] - Occupational Stress Questionnaire Feeling of Stress : Only a little Social Connections: Unknown (07/06/2024) Social Connection and Isolation Panel Frequency of Communication with Friends and Family: More than three times a week Frequency of Social Gatherings with Friends and Family: Once a week Attends Jainism Services: Patient declined Active Member of Clubs or Organizations: No Attends Club or Organization Meetings: Never Marital Status: Intimate Partner Violence: Unknown (03/21/2025) Received from [facility] Humiliation, Afraid, Rape, and Kick questionnaire Within the last year, have you been afraid of your partner or ex-partner?: No Emotionally Abused: Not on file Physically Abused: Not on file Sexually Abused: Not on file Housing Stability: Low Risk (03/21/2025) Received from [facility] Housing Stability Vital Sign In the last 12 months, was there a time when you were not able to pay the mortgage or rent on time?: No In the past 12 months, how many times have you moved where you were living?: 0 At any time in the past 12 months, were you homeless or living in a half-way (including now)?: No ROS: General: denies fever, [...] Daily, Disp: , Rfl: documented in this encounterSoutheast Missouri Community Treatment CenterFkdizhoqyh00-37-9756 History of Present illness Narrative* GEMA Mccartney [...] neurovascular intact s/p injection. . ( Codes 82703) Procedure, treatment alternatives, risks and benefits explained, [...] signs or symptoms of infection. Wearing a clinical research monitor after a recent diagnosis of heart failure andhas been on medication to hopefully correct this. Treatment plan: Intra-articular injection requested again today for symptoms. Less steroid would bebetter for the nursing home, but shoulder could be injected every 4 [...] requiring urgent evaluation. Visit was preformed using [employer] Co-instructor pilot speech recognition. documented in this encounterSoutheast Missouri Community Treatment CenterBwvtegibol48-65-7326 NoteCardiovascular Medicine [facility] SUBJECTIVE Chief Complaint Patient presents with Follow-up Patient is here today for a follow up appointment [facility] for chest pressure and fluid around his heart. NSVT Frequent PVCs Hyperlipidemia Hypertension Bradycardia Atrial tachycardia CKDA Dizziness Dizziness/lightheaded with standing Yuesf Car is a 75 y.o. male here for follow-up after his recent admission to [facility]. His Zoe accompanied him today. PMHx: [...] left adrenal mass, atrial tachycardia presents to [facility] as a direct admission with fluid [...] therapeutic Lovenox. He was initially admitted to [facility] but it was decided to transfer [...] 03/21/2025 32.4 Ventricular Ra (more content not included)...[facility] 03-22-2025 NoteHospital Medicine Discharge Summary Admission Date: [...] left adrenal mass, atrial tachycardia presents to [facility] as a direct admission with fluid [...] therapeutic Lovenox. He was initially admitted to [facility] but it was decided to transfer [...] Center 03/28/2025 1:20 PM Rosendo Sanchez CNP [facility] Your medication list START taking these medications [...] Your Medications These medications were sent to [facility]/pharmacy #[id number] [facility] [id number] aspirin 81 mg chewable tablet spironolactone 25 [...] Blood pressure 138/54, pulse (more content not included)...[facility]10-08-2025 Note Attestation signed by Zeus Schroeder [...] GDMT for HFrEF Close outpatient follow-up with ID cardiology for HFrEF management Repeat echo in [...] normal pressures. Patient was transferred over to [facility] for possible cardiac catheterization. On presentation [...] ???F) 70 -- (!) 89 % -- 03/21/25 2000 127/75 36.2 ???C (97.2 ???F) Temporal 72 [...] Value Ventricular Rate 74 Atrial Rate 74 NV Interval 192 QRS DURATION 160 QT Interval 498 QTC CALCULATION(BAZETT) 552 P Odell 52 R-Odell 133 T Wave Odell -12 Impression Sinus rhythm with occasional Premature ventricular complexes Left bundle branch block Abnormal ECG When compared with ECG of 27-JUL-2023 07:48, Premature ventricular complexes are now Present Left bundle branch block is now Present No results found for: CKTOTAL , CKMB , CKMBINDEX , TROPONINI Complete Echo (more content not included)...[facility] 03-21-2025 NotePatient: Yusef Car Procedure Information Date/Time: 03/21/25 1800 Procedures: Coronary angiography Right heart cath Location: [facility] 3 / [facility] (Cath) Providers: Jai Subramanian [...] discussed with attending and fellow. Additional Equipment RequestsUnFayette County Memorial Hospital10-07-2025 Note Case was discussed with the PEYTON on 03/21/2025. I agree with the history, physical, assessment, and plan of care. I discussed the findings and therapeutic plan. I agree with the documentation, except for any updates below. Pelon Keller MDUnFayette County Memorial Hospital10-07-2025 Note-Troponin 85->112->43 -Concern for ACS -Will initiate IV heparin infusion -Patient was given Plavix as well as therapeutic Lovenox at outside hospital -N.p.o. for possible cardiac cath -Most recent cardiac cath completed on 07/27/2023 showing mild CAD -Cardiology consultUnFayette County Memorial Hospital10-07-2025 Note- Continue beta-blockerUnFayette County Memorial Hospital10-07-2025 Note-Continue outpatient follow-up with urologyUnFayette County [facility] Hospital10-07-2025 Note- Continue losartanUnFayette County Memorial Hospital10-07-2025 Note- Stable continue monitoringUnFayette County Memorial Hospital10-07-2025 Note- Continue rosuvastatinUnFayette County Memorial Hospital10-07-2025 Note- ISS, ACHSUniversParma Community General [facility]10-07-2025 Note- BNP elevated at 2610 at outside hospital -He was given 40 mg of IV Lasix with improvement in shortness of breath -Echocardiogram is pending -Strict intake and outputUnFayette County Memorial Hospital10-07-2025 Note- Stable, at baselineUnFayette County Memorial Hospital10-07-2025 NoteHospital Medicine History and Physical 03/21/2025 3:05 AM THE HOSPITALIST TEAM PREFERS TO USE [employer] FOR NON-URGENT COMMUNICATION 7AM-7PM. IF I DO NOT RESPOND WITHIN 20 MINUTES OR URGENT MATTERS, PLEASE CALL THROUGH THE BALL POINT SPLITTER. FROM 7PM-7AM, PLEASE PAGE [phone](COVR). Chief Complaint Direct admit [place] [facility] [place] [facility] for fluid overload and elevated trop History of Present Illness Yusef Car is an 74 y.o. male who came from home with past medical history CKD 3a, DM2, hypertension, hyperlipidemia, neuroendocrine carcinoma, left adrenal mass, atrial tachycardia presents to [facility] as a direct admission with fluid [...] therapeutic Lovenox. He was initially admitted to [facility] but it was decided to transfer [...] overload - BNP elevated at 2610 at [facility] -He was given 40 mg of IV Lasix with improvement in shortness of breath -Echocardiogram is pending -Strict intake and output CKD stage 3a, GFR 45-59 ml/min ([facility]) - Stable, at baseline Type 2 diabetes mellitus without complication, without long-term current use of insulin ([facility]) - ISS, ACHS Mixed hyperlipidemia - Continue rosuvastatin 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[facility]) - Stable continue monitoring Primary hypertension [...] this hospital stay by a member of [facility] Medicine. Past Medical History Medical History[1] Past Surgical History Surgical History[2] Social History Social History (more content not included)...[facility]09-29-2025 Evaluation note* Diagnosis Onset Date Resolution [...] long-term current use of insulinacuteOctober 2024 10:51am [facility] Work Phone: [phone]) 163-715607-28-2025 History of Present illness Narrative* Tomeka Rosado [...] no, recent ER visit Specialist: eye doctor, mathematical scientist, urology, GI, oncololgy HCPOA/Living Will: POA Concerns: [...] at last office visit, was sent to [facility] ER via squad Bisoprolol dose was [...] EDTAssociated Problem(s): Stage 3a chronic kidney disease ([facility]-H[facility]) Noted on prior labs Control blood pressure as well as diabetes Avoid nephrotoxic drugs if possible * Tomeka Rosado NP - 01/09/2025 6:13 AM EDTAssociated Problem(s): Bradycardia Noted at last office visit, was sent to [facility] ER via squad Bisoprolol dose was lowered from 10mg daily to 5mg daily * Tomeka Rosado NP - 01/09/2025 6:12 AM EDTAssociated Problem(s): NSVT (nonsustained ventricular tachycardia) ([facility]) Noted from cardiology notes in the past * Tomeka Rosado NP - 01/09/2025 6:12 AM EDTAssociated Problem(s): LLQ pain Checked labs and xray at last appt Treated for suspected diverticulitis, sxs resolved documented in this [facility]07-28-2025 Instructions* Patient Instructions* Tomeka Rosado NP - 01/09/2025 8:40 AM EDT Follow up in office for 2 weeks Get xray documented in this [facility]07-01-2025 History of Present illness Narrative* Tomeka Rosado NP - 12/13/2024 3:10 PM EDTAssociated Problem(s): Bradycardia No current sxs , at HR that he has, we discussed that despite asymptomatic we will send to [id number] 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 I then injected 40 mg depomedrol and 2 ml of 0.5% bupivacaine Pt tolerated this well and neurovascular intact s/p injection. . ( Codes 72809) Procedure, treatment alternatives, risks and benefits explained, [...] requiring urgent evaluation. Visit was preformed using [employer] Co-instructor pilot speech recognition. documented in this encounterSoutheast Missouri Community Treatment CenterTzkvdoxtmg55-72-1602 History of Present illness Narrative* Tomeka Rosado [...] (Augmentin) 875-125 MG tablet documented in this encounterSoutheast Missouri Community Treatment CenterJjflpercuq15-67-7361 Instructions* Patient Instructions* Tomeka Rosado NP - 11/28/2024 2:00 PM EDT Get labs completed and xray Also if pain worsens go to ER documented in this encounterSoutheast Missouri Community Treatment CenterNkmseiskpz82-18-8028 NoteUT Electrophysiology Consult Note Reason for visit: [...] kidney disease) stage 3, GFR 30-59 ml/min ([facility]) Diabetes 1.5, managed as t (more content not included)...[facility]04-28-2025 History of Present illness Narrative* Tomeka Rosado NP - 10/10/2024 9:17 AM EDTAssociated Problem(s): Diabetic polyneuropathy associated with type 2 diabetes mellitus ([facility]) Freq foot checks proper fitting shoes, [...] a heart monitor done in June Sees mathematical scientist ferdinand ogden in [place] * Tomeka Rosado NP - 10/10/2024 8:40 [...] being taken. He does not see a svp operations.Eye exam is current. Hypertension This is a [...] checks proper fitting shoes, socks Primary hypertension (CMS/HCC) Please check blood pressure daily and record DASH diet Limit caffeine Take medication as directed Contact office if chest pain, pressure, dizziness, shortness of breath, swelling legs Recommend slow position changes Current meds: bisoprolol, amlodipine prn Mixed hyperlipidemia (CMS/HCC) On statin therapy Check labs yearly and prn dose changes Relevant Orders Uric acid RESOLVED: Morbid obesity (CMS/HCC) Benign prostatic hyperplasia with lower urinary tract symptoms Currently taking tamsulosin Type 2 diabetes mellitus with kidney complication, without long-term current use of insulin (CMS/HCC) - Primary Check blood sugars daily, notify [...] 10/10/2024 6:18 AM EDTAssociated Problem(s): Mixed hyperlipidemia ([facility]) On statin therapy Check labs yearly and prn dose changes * Tomeka Rosado NP - 10/10/2024 6:18 AM EDTAssociated Problem(s): Gout Current meds: allopurinol Check labs yearly and prn dose changes or changes in sxs * Tomeka Rosado NP - 10/10/2024 6:17 AM EDTAssociated Problem(s): Type 2 diabetes mellitus with kidney complication, without long-term currentuse of insulin ([facility]) Check blood sugars daily, notify if [...] meds: bisoprolol, amlodipine prn documented in this encounterSoutheast Missouri Community Treatment CenterOqhmngmtfi30-89-3023 Instructions* Patient Instructions* Tomeka Rosado NP - 10/10/2024 8:40 AM EDT Labs: fasting documented in this encounterSoutheast Missouri Community Treatment CenterTdhgedmkir47-26-6048 History of Present illness Narrative* GEMA Mccartney [...] neurovascular intact s/p injection. . ( Codes 08227-JW) Procedure, treatment alternatives, risks and benefits explained, [...] for requiring urgent evaluation. documented in this encounterSoutheast Missouri Community Treatment CenterWongibjwec92-82-5565 History of Present illness Narrative* Miriam Gatica NP - 07/13/2024 8:56 AM ESTAssociated Problem(s): Stage 3a chronic kidney disease (HCC) ([facility]/HCC) Stable. Follows with Nephrology. Most recent [...] complication, without long-term currentuse of insulin (CMS/HCC) Currently taking glimeperide 4mg Jardiance 25mg Most [...] who presents for Diabetes. HPI Specialists: Cardiologuy- [facility] GI- Dr. Magaña Urology- Dr. Justice [...] R ALBUMIN GLOBULIN RATIO 0.9 Resulting Agency [facility] CKDIII: Stable. Most recent Creatinine [...] List Items Addressed This Visit Primary hypertension ([facility]) - Primary Currently taking bisoprolol 5mg BID Losartan 100mg Furosemide 20mg Cardiology manages very closely. Checks BP at home; Averages are 130/85. Denies orthostatic changes, dizziness, cough, shortness of breath, swelling in extremities. Continue current regime as directed by Cardiology Given BP log, advised pt to record BP and bring log back with them to next visit. Mixed hyperlipidemia ([facility]) Currently taking Rosuvastatin 20mg Cardiology Manages Denies any myalgias. Most recent Lipid Panel done 03/2024- WNL. Continue current regimen. Type 2 diabetes mellitus with kidney complication, without long-term current use of insulin ([facility]) Currently taking glimeperide 4mg Jardiance 25mg [...] (Completed) Stage 3a chronic kidney disease (HCC) ([facility]) Stable. Follows with Nephrology. Most recent Creatinine 1.22,/ eGFR 58. Avoid Nephrotoxic Agents. Monitor closely. documented in this encounterSoutheast Missouri Community Treatment CenterVmlseuemsx58-40-7954 Instructions* Patient Instructions* Miriam Gatica NP - [...] carbohydrates, and simple sugars. documented in this encounterSoutheast Missouri Community Treatment CenterPcexxciiot29-99-9657 Attending History and physical note* Jeremiah Magaña [...] Interval History: 73 years old gentleman from [place], [place] who has been referred to me from [facility]. Thepatient complained of acid reflux for more [...] 0841 No results found for: TSH , L3LFLCF , H8TXQTK , THYROIDPAB Radiology Result: I have reviewed [...] Juanjose Walters 05/27/2023 11:47 AM Dictation workstation: [id number] === 01/11/21 === - Impression - 1. [...] Juanjose Walters 05/27/2023 11:47 AM Dictation workstation: [id number] Pathology Results: I have reviewed the full pathology report recorded in the EMR. The pertinent portions indicating diagnosis are listed here in the note. for details please refer to the full report recorded in the EMR. Assessment and Plan: Localized duodenal neuroendocrine tumor (G1) 73 years old gentleman from [place], [place] who has been referred to me from [facility]. Thepatient complained of acid reflux for more [...] patient has been recommended to go to [place] for surgical consultation. I discussed with the [...] number listed below. Thank you for choosing [facility]. We appreciate your visit. Neftali Knowles M.D. Tank Hoop Bender and Director of the Neuroendocrine Tumor Program Gastrointestinal Medical Oncology Department of Hematology and Oncology [facility], [place] [address] Phone (Office): [phone] Email: [email or web address] Learn more about [facility] Comprehensive Neuroendocrine Tumor Program: Click Here Learn more about [place] [employer]end[employer]: [email or web address] [facility] Work Phone: 1([phone]) 519-588201-16-2025 History and physical note* Jeremiah Magaña MD [...] Interval History: 73 years old gentleman from [place], [place] who has been referred to me from [facility]. Thepatient complained of acid reflux for more [...] 0841 No results found for: TSH , M2FETGX , I4FBJVE , THYROIDPAB Radiology Result: I have reviewed [...] Juanjose Walters 05/27/2023 11:47 AM Dictation workstation: [id number] === 01/11/21 === - Impression - 1. [...] Juanjose Walters 05/27/2023 11:47 AM Dictation workstation: [id number] Pathology Results: I have reviewed the full pathology report recorded in the EMR. The pertinent portions indicating diagnosis are listed here in the note. for details please refer to the full report recorded in the EMR. Assessment and Plan: Localized duodenal neuroendocrine tumor (G1) 73 years old gentleman from [place], [place] who has been referred to me from [facility]. Thepatient complained of acid reflux for more [...] patient has been recommended to go to [place] for surgical consultation. I discussed with the [...] with gastritis. No evidence of NETs. Today: uYsef presents with his for a follow up [...] number listed below. Thank you for choosing [facility]. We appreciate your visit. Neftali Knowles M.D. Tank Hoop Bender and Director of the Neuroendocrine Tumor Program Gastrointestinal Medical Oncology Department of Hematology and Oncology [facility], [place] [address] Phone (Office): [phone] Email: [email or web address] Learn more about [facility] Comprehensive Neuroendocrine Tumor Program: Click Here Learn more about [place] [employer]: [email or web address] documented in this [facility] Work Phone: 1(693) 585-900701-16-2025 Hospital Discharge instructions* Discharge Instructions* Jeremiah Magaña [...] ofhaving your procedure, call the [facility] to be advised whether a visit to [...] inflamed, or looks infected. documented in this [facility] Work Phone: [phone]) 641-741212-17-2024 NoteUT Electrophysiology Consult Note Reason for visit: [...] kidney disease) stage 3, GFR 30-59 ml/min ([facility]) Diabetes 1.5, managed as type 2 ([facility]) HTN (hypertension) Hyperlipidemia NSVT (nonsustained ventricular tachycardia) ([facility]) Primary malignant neoplasm of duodenum ([facility]) PSH: Past Surgical History: Procedure Laterality Date CARDIAC CATHETERIZATION 07/27/2023 SH: Social Determinants of Health Tobacco Use: Medium Risk (04/13/2024) Received from [facility] Patient History Smoking Tobacco Use: Former Smokeless Tobacco Use: Never Passive Exposure: Never Alcohol Use: Not At Risk (06/28/2023) Received from [facility] AUDIT-C Frequency of Alcohol Consumption: Monthly or less Average Number of Drinks: 1 or 2 Frequency of Binge Drinking: Monthly [employer] (more content not included)...[facility]10-30-2024 History of Present illness Narrative* GEMA [...] injection Left Shoulder SA space ( code 41573 LT) Procedure, treatment alternatives, risks and benefits [...] for requiring urgent evaluation. [facility] [id number] History of Present illness Narrative* Miriam Gatica NP - 04/12/2024 10:57 AM EDTAssociated Problem(s): Type 2 diabetes mellitus with kidney complication, without long- term currentuse of insulin ([facility]) Currently taking glimeperide 4mg Jardiance 25mg [...] EDTAssociated Problem(s): Left rotator cuff tear arthropathy [address] [place] [address] ortho told him he needed revision. Declined. [...] for Diabetes and Hypertension. HPI Specialists: Cardiologuy- [facility] GI- Dr. Magaña Urology- Dr. Justice [...] metabolic panel CBC and differential Mixed hyperlipidemia ([facility]) - Primary Currently taking Rosuvastatin 20mg Cardiology Manages Denies any myalgias. Check Lipid Panel Continue current regimen. Relevant Medications rosuvastatin (Crestor) 20 MG tablet Other Relevant Orders Lipid panel Diabetes mellitus type 2 in obese ([facility]) Type 2 diabetes mellitus with kidney complication, without long-term current use of insulin ([facility]) Currently taking glimeperide 4mg Jardiance 25mg [...] Surgery Stage 3a chronic kidney disease (HCC) ([facility]) Stable. Most recent Creatinine 1.18,/ eGFR 65. Avoid Nephrotoxic Agents. Monitor closely. Relevant Orders Microalbumin / creatinine urine ratio Comprehensive metabolic panel CBC and differential Arthritis Relevant Orders Ambulatory referral to Orthopaedic Surgery documented in this [facility]10-29-2024 Instructions* Patient Instructions* Miriam Gatica NP - [...] carbohydrates, and simple sugars. documented in this [facility]07-16-2024 Hospital Discharge instructions* Discharge Instructions* Jeremiah Magaña [...] ofhaving your procedure, call the [facility] to be advised whether a visit to [...] inflamed, or looks infected. documented in this [facility] Work Phone: [phone]) 886-848407-16-2024 Attending History and physical note* Jeremiah Magaña [...] and follows closely with hematology oncology at [facility]. Patient has had imaging of his [...] 1 year with MRI abdomen and PVR [facility] Work Phone: 1([phone]) 789-132707-16-2024 History and physical note* Jeremiah Magaña MD [...] and follows closely with hematology oncology at [facility]. Patient has had imaging of his [...] MRI abdomen and PVR [facility]: 1(226) 957-476604-24-2024 Hospital Discharge instructions* Discharge Instructions* Jeremiah Magaña [...] ofhaving your procedure, call the [facility] to be advised whether a visit to [...] inflamed, or looks infected. [facility]: 1([phone]) 442-213104-24-2024 Attending History and physical note* Jeremiah Magaña [...] kidney disease) stage 3, GFR 30-59 ml/min ([facility]) Diabetes 1.5, managed as type 2 ([facility]) HTN (hypertension) Hyperlipidemia NSVT (nonsustained ventricular tachycardia) ([facility]) Primary malignant neoplasm of duodenum ([facility]) PSH: Past Surgical History: Procedure Laterality [...] Value Ventricular Rate 62 Atrial Rate 62 NV Interval 204 QRS DURATION 108 QT Interval 440 QTC CALCULATION(BAZETT) 446 P Odell 26 R-Odell -24 T Wave Odell 28 Impression Normal sinus rhythm Moderate voltage criteria for LVH, may be normal variant ( R in aVL , [place] product ) Borderline ECG No previous ECGs [...] Follow-up with our cardiology office in the [facility] in the next 2 to 4 [...] been negative. Noe Knight MD Cardiac Electrophysiology [facility] Work Phone: [phone]) 420-726904-24-2024 History and physical note* Jeremiah Magaña MD [...] kidney disease) stage 3, GFR 30-59 ml/min ([facility]) Diabetes 1.5, managed as type 2 ([facility]) HTN (hypertension) Hyperlipidemia NSVT (nonsustained ventricular tachycardia) ([facility]) Primary malignant neoplasm of duodenum ([facility]) PSH: Past Surgical History: Procedure Laterality [...] Value Ventricular Rate 62 Atrial Rate 62 NV Interval 204 QRS DURATION 108 QT Interval 440 QTC CALCULATION(BAZETT) 446 P Odell 26 R-Odell -24 T Wave Odell 28 Impression Normal sinus rhythm Moderate voltage [...] Follow-up with our cardiology office in the [facility] in the next 2 to 4 [...] been negative. Noe Knight MD Cardiac Electrophysiology [facility] Phone: [phone]) 793-569312-27-2023 Hospital Discharge instructions* Discharge Instructions* Vic Mcrae [...] ofhaving your procedure, call the [facility] to be advised whether a visit to [...] inflamed, or looks infected. documented in this [facility] Work Phone: [phone] Miscellaneous Notes* Pre-Sedation Documentation - Vic Mcrae [...] Other TIA Erythromycin GI bleeding Lisinopril Cough PRESENTATION MANAGER/Current Medications: (Not in a hospital admission) [...] H and P ) [facility] Phone: [phone] 277-493112-27-2023 Note* Pre-Sedation Documentation - Vic Mcrae MD - 06/10/2023 8:30 AM EST Patient: Yusef Car Pre-sedation Evaluation: Sedation necessary for: Immobility and Analgesia Requesting service: GI History of Present Illness: H/o duodenal NET Past Medical History: Diagnosis Date Diabetes mellitus ([facility]) Hyperlipidemia Hypertension Principle problems: Patient Active Problem List Diagnosis Date Noted Primary malignant neuroendocrine neoplasm of duodenum (CMS/HCC) 04/28/2023 Allergies: Allergies Allergen Reactions Ciprofloxacin Other TIA Erythromycin GI bleeding Lisinopril Cough PRESENTATION MANAGER/Current Medications: (Not in a hospital admission) [...] (This is my H and P ) [facility] Work Phone: [phone]) 548-864012-27-2023 Note* Pre-Sedation Documentation - Vic Mcrae MD - 06/10/2023 8:30 AM EST Patient: Yusef Car Pre-sedation Evaluation: Sedation necessary for: Immobility and Analgesia Requesting service: GI History of Present Illness: H/o duodenal NET Past Medical History: Diagnosis Date Diabetes mellitus ([facility]) Hyperlipidemia Hypertension Principle problems: Patient Active Problem List Diagnosis Date Noted Primary malignant neuroendocrine neoplasm of duodenum ([facility]) 04/28/2023 Allergies: Allergies Allergen Reactions Ciprofloxacin Other TIA Erythromycin GI bleeding Lisinopril Cough PRESENTATION MANAGER/Current Medications: (Not in a hospital admission) [...] (This is my H and P ) [facility] Work Phone: [phone]) 225-476907-29-2021 Chief complaint Narrative - Reported* An interactive audio and video telecommunication system which permits real time communications between the patient (at the originating site) and provider (at the distant site) was utilized to providethis telehealth service. * Verbal consent was requested and obtained from YUSEF CAR on this date, 01/10/2021 09:30 AM , for a telehealth visit. * Duodenal neuroendocrine tumor [facility] Work Phone: [phone]) 303-289806-16-2021 History of Present illness Narrative* 70-year-old man referred to me from Dr. Johansen for duodenal well- differentiated neuroendocrine tumor. He underwent EGD on 11/28/2020 at the [facility] in [facility] for a longstanding history of [...] patient was seen today by Dr. Johansen whotsering ordered cross-sectional imaging and gastrin level * [...] illicit drug use * He is retired [facility] Work Phone: [phone] 259-768406-16-2021 History of Present illness Narrative 70-year-old man with duodenal well-differentiated neuroendocrine tumor. He underwent EGD on 11/28/2020 at the [facility] in [facility] for a longstanding history of [...] virtual visit with the patient and his .[facility] Work Phone: evaluation note* Diagnosis Primary malignant neuroendocrine neoplasm of duodenum (CMS/HCC) documented in this encounter [facility] Work Phone: Evaluation note* Diagnosis Primary malignant neuroendocrine neoplasm of duodenum (CMS/HCC) documented in this encounter [facility] Work Phone: Evaluation note* Diagnosis Primary malignant neuroendocrine neoplasm of duodenum (CMS/HCC)- Primary documented in this encounter [facility] Work Phone: Evaluation note* Diagnosis Primary hypertension (CMS/HCC)- Primary Unspecified essential hypertension documented in this encounter [facility] HealthcareEvaluation note* Diagnosis Exam for clinical trial Examination of participant in clinical trial documented in this encounter [employer] Phone: evaluation note* Diagnosis Stage 3a chronic kidney disease (HCC) (CMS/HCC)- Primary Type 2 diabetes mellitus with stage 3a chronic kidney disease, without long-term current use of insulin (HCC) (CMS/HCC) documented in this encounter [employer] note* Diagnosis Primary malignant neuroendocrine neoplasm of duodenum (Multi)- Primary documented in this encounter [facility] Work Phone: Evaluation note* Diagnosis 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 Adrenal adenoma, left documented in this encounter [employer] Phone: evaluation note* Diagnosis 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 Adrenal adenoma, left documented in this encounter [employer] Work Phone: evaluation note* Diagnosis Primary hypertension (CMS/HCC)- [...] arthropathy, site unspecified documented in this encounter [facility] HealthcareEvaluation note* Diagnosis Primary hypertension (CMS/HCC)- Primary Unspecified essential hypertension Primary malignant neuroendocrine neoplasm of duodenum (CMS/HCC) Gastroesophageal reflux disease without esophagitis Esophageal reflux Abnormal nuclear stress test Stage 3a chronic kidney disease (HCC) (CMS/HCC) Nodule of lower lobe of left lung Type 2 diabetes mellitus with stage 3a chronic kidney disease, without long-term current use of insulin (HCC) ([facility]) Renal cyst, left Unspecified congenital cystic kidney disease NSVT (nonsustained ventricular tachycardia) ([facility]) Encounter to establish care with new [...] without long-term current use of insulin (HCC) ([facility]CC) Gastroesophageal reflux disease without esophagitis- Primary [...] without long-term current use of insulin (HCC) ([facility]CC) Gastroesophageal reflux disease without esophagitis Esophageal reflux Stage 3a chronic kidney disease (HCC) ([facility]CC) Obesity (BMI 30-39.9) Diabetes mellitus type 2 in obese ([facility]) Left rotator cuff tear arthropathy Chronic pain of right knee Arthritis Unspecified arthropathy, site unspecified Acute pain of left shoulder- Primary Left rotator cuff tear arthropathy documented in this encounter [facility] HealthcareEvaluation note* Diagnosis Primary malignant neuroendocrine neoplasm of duodenum (Multi)- Primary documented in this encounter [facility] Work Phone: Evaluation note* Diagnosis Primary malignant neuroendocrine neoplasm of duodenum (Multi) documented in this encounter [facility] Work Phone: Evaluation note* Diagnosis Stage 3a chronic kidney disease (HCC) ([facility]CC) Type 2 diabetes mellitus with stage 3a chronic kidney disease, without long-term current use of insulin (HCC) ([facility]) documented in this encounter [facility] HealthcareEvaluation note* Diagnosis Primary malignant neuroendocrine neoplasm of duodenum (Multi)- Primary documented in this encounter [facility] Work Phone: Evaluation note* Diagnosis Primary malignant neuroendocrine neoplasm of duodenum (Multi)- Primary documented in this encounter [facility] Work Phone: Evaluation note* Diagnosis Primary [...] cystic kidney disease NSVT (nonsustained ventricular tachycardia) ([facility]) Encounter to establish care with new [...] esophagitis Esophageal reflux documented in this encounter [facility] HealthcareEvaluation note* Diagnosis Primary hypertension (CMS/HCC)- [...] (CMS/HCC) Mixed hyperlipidemia documented in this encounter [facility] HealthcareEvaluation note* Diagnosis Primary hypertension (CMS/HCC)- [...] cuff tear arthropathy documented in this encounter [facility] HealthcareEvaluation note* Diagnosis Primary hypertension (CMS/HCC)- Primary [...] Unspecified essential hypertension documented in this encounter [facility] HealthcareEvaluation note* Diagnosis Primary hypertension (CMS/HCC)- [...] insulin (HCC) (CMS/HCC) documented in this encounter [facility] HealthcareEvaluation note* Diagnosis Primary hypertension (CMS/HCC)- Primary [...] 2 diabetes mellitus without complication, unspecified whether terminal clerk insulin use documented in this encounter [facility] HealthcareEvaluation note* Diagnosis Primary hypertension- Primary [...] cystic kidney disease NSVT (nonsustained ventricular tachycardia) ([facility]) Encounter to establish care with new [...] Esophageal reflux Stage 3a chronic kidney disease ([facility]) Obesity (BMI 30-39.9) Diabetes mellitus type 2 in obese ([facility]) Left rotator cuff tear arthropathy Chronic pain of right knee Arthritis Unspecified arthropathy, site unspecified Primary hypertension- Primary Unspecified essential hypertension Type 2 diabetes mellitus with stage 3a chronic kidney disease, without long-term current use of insulin (HCC) Stage 3a chronic kidney disease ([facility]) Mixed hyperlipidemia Mixed hyperlipidemia Type 2 diabetes mellitus with stage 3a chronic kidney disease, without long-term current use of insulin (HCC)- Primary Gastroesophageal reflux disease without esophagitis Esophageal reflux Primary malignant neuroendocrine neoplasm of duodenum (HCC) Benign prostatic hyperplasia with lower urinary tract symptoms, symptom details unspecified Obesity (BMI 30-39.9) Morbid obesity ([facility]) Morbid obesity Gout, unspecified cause, unspecified [...] mention of hemorrhage) documented in this encounter [facility] HealthcareEvaluation note* Diagnosis Primary hypertension- Primary Unspecified essential hypertension Primary malignant neuroendocrine neoplasm of duodenum (HCC) Gastroesophageal reflux disease without esophagitis Esophageal reflux Abnormal nuclear stress test Stage 3a chronic kidney disease ([facility]) Nodule of lower lobe of left lung Type 2 diabetes mellitus with stage 3a chronic kidney disease, without long-term current use of insulin (HCC) Renal cyst, left Unspecified congenital cystic kidney disease NSVT (nonsustained ventricular tachycardia) ([facility]) Encounter to establish care with new [...] Esophageal reflux Stage 3a chronic kidney disease ([facility]) Obesity (BMI 30-39.9) Diabetes mellitus type 2 in obese ([facility]) Left rotator cuff tear arthropathy Chronic pain of right knee Arthritis Unspecified arthropathy, site unspecified Primary hypertension- Primary Unspecified essential hypertension Type 2 diabetes mellitus with stage 3a chronic kidney disease, without long-term current use of insulin (HCC) Stage 3a chronic kidney disease ([facility]) Mixed hyperlipidemia Mixed hyperlipidemia Type 2 diabetes mellitus with stage 3a chronic kidney disease, without long-term current use of insulin (HCC)- Primary Gastroesophageal reflux disease without esophagitis Esophageal reflux Primary malignant neuroendocrine neoplasm of duodenum (HCC) Benign prostatic hyperplasia with lower urinary tract symptoms, symptom details unspecified Obesity (BMI 30-39.9) Morbid obesity ([facility]) Morbid obesity Gout, unspecified cause, unspecified [...] of left shoulder documented in this encounter [facility] HealthcareEvaluation note* Diagnosis 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 Adrenal adenoma, left documented in this encounter [facility] Work Phone: evaluation note* Diagnosis Primary hypertension- Primary Unspecified essential hypertension Primary malignant neuroendocrine neoplasm of duodenum (HCC) Gastroesophageal reflux disease without esophagitis Esophageal reflux Abnormal nuclear stress test Stage 3a chronic kidney disease ([facility]) Nodule of lower lobe of left lung Type 2 diabetes mellitus with stage 3a chronic kidney disease, without long-term current use of insulin (HCC) Renal cyst, left Unspecified congenital cystic kidney disease NSVT (nonsustained ventricular tachycardia) ([facility]) Encounter to establish care with new doctor Left adrenal mass (HCC)- Primary Unspecified disorder of adrenal glands Type 2 diabetes mellitus with stage 3a chronic kidney disease, without long-term current use of insulin ([facility]) Primary hypertension Unspecified essential hypertension Pneumonia of [...] Esophageal reflux Stage 3a chronic kidney disease ([facility]) Obesity (BMI 30-39.9) Diabetes mellitus type 2 in obese ([facility]) Left rotator cuff tear arthropathy Chronic pain of right knee Arthritis Unspecified arthropathy, site unspecified Primary hypertension- Primary Unspecified essential hypertension Type 2 diabetes mellitus with stage 3a chronic kidney disease, without long-term current use of insulin (HCC) Stage 3a chronic kidney disease ([facility]) Mixed hyperlipidemia Mixed hyperlipidemia Type 2 [...] Unspecified essential hypertension documented in this encounter [facility] HealthcareEvaluation note* Diagnosis 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 Adrenal adenoma, left documented in this encounter [facility] Work Phone: evaluation note* Diagnosis Primary hypertension- [...] cystic kidney disease NSVT (nonsustained ventricular tachycardia) ([facility]) Encounter to establish care with new [...] Esophageal reflux Stage 3a chronic kidney disease ([facility]) Obesity (BMI 30-39.9) Diabetes mellitus type 2 in obese ([facility]) Left rotator cuff tear arthropathy Chronic [...] details unspecified Obesity (BMI 30-39.9) Morbid obesity ([facility]) Morbid obesity Gout, unspecified cause, unspecified [...] and foot joint documented in this encounter [facility] HealthcareEvaluation note* Diagnosis Onset Date Resolution Status Admit Date CKD stage 3a, GFR 45-59 ml/min acutept2024 8:52amDiabetic polyneuropathy associated with type 2 diabetes mellitusacuteMarch 13, 2025 8:52amGastroesophageal reflux disease acutept2024 8:52amHypertensionacutept2024 8:52amLeft ankle swellingacuteMarch 13, 2025 8:52amMixed hyperlipidemiaacute March 13, 2025 8:52amObesity (BMI 30-39.9)acutept2024 8:52am Type 2 diabetes mellitus, without long-term current use of insulinacuteMarch 13, 2025 8:52am [facility] Work Phone: Evaluation note* Diagnosis Primary malignant neuroendocrine neoplasm of duodenum (Multi)- Primary documented in this encounter [facility] Work Phone: Evaluation note* Diagnosis Primary malignant neuroendocrine neoplasm of duodenum (Multi)- Primary documented in this encounter [facility] Work Phone: Evaluation note* Diagnosis Primary [...] cystic kidney disease NSVT (nonsustained ventricular tachycardia) ([facility]) Encounter to establish care with new [...] 30-39.9) Diabetes mellitus type 2 in obese ([facility]/HCC) Left rotator cuff tear arthropathy Chronic [...] of left shoulder documented in this encounter [facility] HealthcareEvaluation note* Diagnosis Primary hypertension- Primary Unspecified essential hypertension Primary malignant neuroendocrine neoplasm of duodenum (HCC) Gastroesophageal reflux disease without esophagitis Esophageal reflux Abnormal nuclear stress test Stage 3a chronic kidney disease ([facility] [facility] Nodule of lower lobe of left lung Type 2 diabetes mellitus with stage 3a chronic kidney disease, without long-term current use of insulin (HCC) Renal cyst, left Unspecified congenital cystic kidney disease NSVT (nonsustained ventricular tachycardia) ([facility]) Encounter to establish care with new [...] Esophageal reflux Stage 3a chronic kidney disease ([facility]) Obesity (BMI 30-39.9) Diabetes mellitus type 2 in obese ([facility]/HCC) Left rotator cuff tear arthropathy Chronic pain of right knee Arthritis Unspecified arthropathy, site unspecified Primary hypertension- Primary Unspecified essential hypertension Type 2 diabetes mellitus with stage 3a chronic kidney disease, without long-term current use of insulin (HCC) Stage 3a chronic kidney disease ([facility]) Mixed hyperlipidemia Type 2 diabetes mellitus [...] Medicare patient- Primary NSVT (nonsustained ventricular tachycardia) ([facility]) Bradycardia Other specified cardiac dysrhythmias Stage 3a [...] ankle and foot documented in this encounter [facility] HealthcareEvaluation note* Diagnosis Primary hypertension- Primary [...] Esophageal reflux Stage 3a chronic kidney disease ([facility]) Obesity (BMI 30-39.9) Diabetes mellitus type 2 in obese ([facility]) Left rotator cuff tear arthropathy Chronic [...] details unspecified Obesity (BMI 30-39.9) Morbid obesity ([facility]) Morbid obesity Gout, unspecified cause, unspecified [...] wasreferred to [facility] by his provider, Ania Foster CNP. Mr. 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 CAR is of Ukrainian and [place]ronesian descent. There is no known Ashkenazi Yazdanism ancestry. Consanguinity was denied. No genetic testing has been done in the family before. [employer] Work Phone: History of Present illness NarrativePlease see previous genetics note.[employer] Work Phone: History of Present illness Narrative* Neftali Knowles MD - 06/21/2024 9:40 AM EST Images from the original note were not included. Patient ID: Yusef Car is a 74 y.o. male. Referring Physician: No referring provider defined for this encounter. Primary Care Provider: Shaikh Jamie MD Chief Complaint: Duodenal neuroendocrine tumor Interval History: 73 years old gentleman from [place], [place] who has been referred to me from [facility]. Thepatient complained of acid reflux for more [...] 0841 No results found for: TSH , V3GITFE , K9ZMUZG , THYROIDPAB Radiology Result: I have reviewed [...] Juanjose Walters 05/27/2023 11:47 AM Dictation workstation: [id number] === 01/11/21 === - Impression - 1. [...] Juanjose Walters 05/27/2023 11:47 AM Dictation workstation: [id number] Pathology Results: I have reviewed the full pathology report recorded in the EMR. The pertinent portions indicating diagnosis are listed here in the note. for details please refer to the full report recorded in the EMR. Assessment and Plan: Localized duodenal neuroendocrine tumor (G1) 73 years old gentleman from [place], [place] who has been referred to me from [facility]. Thepatient complained of acid reflux for more [...] patient has been recommended to go to [place] for surgical consultation. I discussed with the [...] number listed below. Thank you for choosing [facility]. We appreciate your visit. Neftali Knowles M.D. Tank Hoop Bender and Director of the Neuroendocrine Tumor Program Gastrointestinal Medical Oncology Department of Hematology and Oncology [facility], [place] [address] Phone (Office): [phone] Email: [email or web address] Learn more about [facility] Comprehensive Neuroendocrine Tumor Program: Click Here Learn more about [place] [employer]: [email or web address] documented in this encounterUnAs[facility] Work Phone: Hospital Discharge instructionsAmbulatory Orders* Referral to Podiatry Time Frame: 03/13/25, Location: [facility] Work Phone: Reason for visit Narrative* Endoscopy (Routine) - AuthorizedSpecialtyDiagnoses / ProceduresReferred By ContactReferred To ContactGastroenterology Diagnoses Primary malignant neuroendocrine neoplasm of duodenum (Multi) Procedures Esophagogastroduodenoscopy (EGD) NV ESOPHAGOGASTRODUODENOSCOPY TRANSORAL DIAGNOSTIC NV EGD TRANSORAL BIOPSY SINGLE/MULTIPLE Jeremiah Magaña MD [address] [facility] [address] [place] [address] Phone: tel: fax: Referral IDStatusReasonStart DateExpiration DateVisits RequestedVisits [id number]/8/20251/8/202611 [facility] Work Phone: reason for visit Narrative* Imaging (Routine) - Closed SpecialtyDiagnoses / ProceduresReferred By ContactReferred To ContactRadiology Diagnoses Bilateral renal cysts Adrenal adenoma, left Procedures MRI ABDOMEN W WO CONTRAST Grace Justice PA-C [address] [facility] [address] [place] [address] Phone: tel: fax: Referral IDStatusReasonStart DateExpiration DateVisits RequestedVisits [id number]/1/20257/ [facility] Work Phone: reason for visit Narrative* Endoscopy (Routine) - AuthorizedSpecialtyDiagnoses / ProceduresReferred By ContactReferred To ContactGastroenterology Diagnoses Primary malignant neuroendocrine neoplasm of duodenum (Multi) Procedures EGD NV ESOPHAGOGASTRODUODENOSCOPY TRANSORAL DIAGNOSTIC NV EGD TRANSORAL BIOPSY SINGLE/MULTIPLE Jeremiah Magaña MD [address] [facility] [address] [place] [address] Phone: tel: fax: Referral IDStatusReasonStart DateExpiration DateVisits RequestedVisits [id number]/18/20241/ [facility] Work Phone: Reason for visit Narrative* Endoscopy (Routine) - AuthorizedSpecialtyDiagnoses / ProceduresReferred By ContactReferred To ContactGastroenterology Diagnoses Primary malignant neuroendocrine neoplasm of duodenum (Multi) Procedures Endoscopic Ultrasound ([place]) [place] [address] [facility] [address], [address] [address] Phone: tel: fax: Referral IDStatusReasonStart DateExpiration DateVisits RequestedVisits [id number]/15/20241/ [facility] Work Phone: Summary Purpose Family History [...] RelationshipCommunicationTina PrestonSpouse Health Care Agent* * * [email or web address] NameRelationshipHealthcare Agent RelationshipCommunicationTina PrestonSpouse Health Care Agent* * * [email or web address] NameRelationshipHealthcare Agent RelationshipCommunicationTina PrestonSpouse Health Care Agent* * * [email or web address] NameRelationshipHealthcare Agent RelationshipCommunicationTina PrestonSpouse Health Care Agent* * * [email or web address] NameRelationshipHealthcare Agent RelationshipCommunicationTina PrestonSpouse Health Care Agent* * * [email or web address] NameRelationshipHealthcare Agent RelationshipCommunicationTina PrestonSpouse Health Care Agent* * * [email or web address] NameRelationshipHealthcare Agent RelationshipCommunicationTina PrestonSpouse Health Care Agent* * * [email or web address] NameRelationshipHealthcare Agent RelationshipCommunicationTina PrestonSpouse Health Care Agent* * * [email or web address] NameRelationshipHealthcare Agent RelationshipCommunicationTina PrestonSpouse Health Care Agent* * * [email or web address] NameRelationshipHealthcare Agent RelationshipCommunicationTina PrestonSpouse Health Care Agent* * * [email or web address] NameRelationshipHealthcare Agent RelationshipCommunicationTina PrestonSpouse Health Care Agent* * * [email or web address] NameRelationshipHealthcare Agent RelationshipCommunicationTina PrestonSpouse Health Care Agent* * * [email or web address] NameRelationshipHealthcare Agent RelationshipCommunicationTina PrestonSpouse Health Care Agent* * * [email or web address] NameRelationshipHealthcare Agent RelationshipCommunicationTina PrestonSpouse Health Care Agent* * * [email or web address] NameRelationshipHealthcare Agent RelationshipCommunicationTina PrestonSpouse Health Care Agent* * * [email or web address] NameRelationshipHealthcare Agent RelationshipCommunicationTina PrestonSpouse Health Care Agent* * * [email or web address] NameRelationshipHealthcare Agent RelationshipCommunicationTina PrestonSpouse Health Care Agent* * * [email or web address] NameRelationshipHealthcare Agent RelationshipCommunicationTina PrestonSpouse Health Care Agent* * * [email or web address] NameRelationshipHealthcare Agent RelationshipCommunicationTina PrestonSpouse Health Care Agent* * * [email or web address] NameRelationshipHealthcare Agent RelationshipCommunicationTina PrestonSpouse Health Care Agent* * * [email or web address] NameRelationshipHealthcare Agent RelationshipCommunicationTina PrestonSpouse Health Care Agent* * * [email or web address] NameRelationshipHealthcare Agent RelationshipCommunicationTina PrestonSpouse Health Care Agent* * * [email or web address] NameRelationshipHealthcare Agent RelationshipCommunicationTina PrestonSpouse Health Care Agent* * * [email or web address] NameRelationshipHealthcare Agent RelationshipCommunicationTina PrestonSpouse Health Care Agent* * * [email or web address] NameRelationshipHealthcare Agent RelationshipCommunicationTina PrestonSpouse Health Care Agent* * * [email or web address] Advance Directive Response Recorded Date/ Time Advance Directives No November 29 1:34pm NameRelationshipHealthcare Agent RelationshipCommunicationTina PrestonSpouse Health Care Agent* * * [email or web address] NameRelationshipHealthcare Agent RelationshipCommunicationTina PrestonSpouse Health Care Agent* * * [email or web address] NameRelationshipHealthcare Agent RelationshipCommunicationTina PrestonSpouse Health Care Agent* * * [email or web address] NameRelationshipHealthcare Agent RelationshipCommunicationTina PrestonSpouse Health Care Agent* * * [email or web address] NameRelationshipHealthcare Agent RelationshipCommunicationTina PrestonSpouse Health Care Agent* * * [email or web address] NameRelationshipHealthcare Agent RelationshipCommunicationTina PrestonSpouse Health Care Agent* * * [email or web address] NameRelationshipHealthcare Agent RelationshipCommunicationTina PrestonSpouse Health Care Agent* * * [email or web address] NameRelationshipHealthcare Agent RelationshipCommunicationTina PrestonSpouse Health Care Agent* * * [email or web address] Chief Complaint 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 * Accompanied by . Patient seen for discussion of genetic test results. Reason for Referral SpecialtyDiagnoses / ProceduresReferred By ContactReferred To ContactRadiology Diagnoses Primary malignant neuroendocrine neoplasm of duodenum (CMS/HCC) Procedures CT chest abdomen pelvis w IV contrast Jazlyn Mcarthur, OPERATIONS SUPPORT ANALYST-MANAGER DEPARTMENT [address] [address] [facility] [place] [phone] Referral IDStatusReasonStart DateExpiration DateVisits RequestedVisits [id number] Review Perform Procedure /[id number] / ProceduresReferred By ContactReferred To ContactGastroenterology Diagnoses Primary malignant neuroendocrine neoplasm of duodenum (CMS/HCC) Procedures EGD NV ESOPHAGOGASTRODUODENOSCOPY TRANSORAL DIAGNOSTIC NV EGD TRANSORAL BIOPSY SINGLE/MULTIPLE Jazlyn Mcarthur Abdirahman, OPERATIONS SUPPORT ANALYST-MANAGER DEPARTMENT [address] [address] Hematology [place] [address] Referral IDStatusReasonStart DateExpiration DateVisits RequestedVisits [id number] Wilugy69/[id number] / ProceduresReferred By ContactReferred To ContactRadiology Diagnoses Exam for clinical trial Procedures US COMPARISON OF OUTSIDE FILMS Grace Justice PA-C [address] [place] [address] Referral IDStatusReasonStart DateExpiration DateVisits RequestedVisits [id number] Review/[id number] / ProceduresReferred By ContactReferred To ContactGastroenterology Diagnoses Primary malignant neuroendocrine neoplasm of duodenum (Multi) Procedures Endoscopic Ultrasound (Upper) [place] [address] [facility] [address] [place] [address] Referral IDStatusReasonStart DateExpiration DateVisits RequestedVisits [id number] Review/[id number] / ProceduresReferred By ContactReferred To ContactRadiology Diagnoses Bilateral renal cysts Adrenal adenoma, left Procedures MRI ABDOMEN W WO CONTRAST Grace Justice PA-C [address] [place] [address] Referral IDStatusReasonStart DateExpiration DateVisits RequestedVisits [id number]//[id number] / Procedures Referred By ContactReferred To ContactGastroenterology Diagnoses Primary malignant neuroendocrine neoplasm of duodenum (Multi) Procedures EGD NV ESOPHAGOGASTRODUODENOSCOPY TRANSORAL DIAGNOSTIC NV EGD TRANSORAL BIOPSY SINGLE/MULTIPLE Jeremiah Magaña MD [address] [address] Referral IDStatusReasonStpamplico DateExpiration DateVisits RequestedVisits [id number] Review/[id number] / ProceduresReferred By ContactReferred To ContactRadiology Diagnoses Primary malignant neuroendocrine neoplasm of duodenum (Multi) Procedures [place] chest [place] [address] [place] [address] Referral IDStatusReScoopler, Inc.[place] DateExpiration DateVisits RequestedVisits [id number] Perform Procedure / Chief Complaint and Reason [...] 2025 1:26pm 2M March 13, 2025 8:52am [facility]-heart cath March 29, 2025 1 0:51am [...] and content) DATE CREATED AUTHOR 10/12/2018 [facility] DATE CREATED AUTHOR AUTHOR'S ORGANIZ ATION 06/13/2021 [facility] DATE CREATED AUTHOR AUTHOR'S ORGANIZ ATION 12/06/2021 [facility] DATE CREATED AUTHOR AUTHOR'S ORGANIZ ATION 05/14/2022 [facility] DATE CREATED AUTHOR AUTHOR'S ORGANIZ ATION 09/17/2022 [facility] DATE CREATED AUTHOR AUTHOR'S ORGANIZ ATION 07/31/2023 [facility] DATE CREATED AUTHOR AUTHOR'S ORGANIZ ATION 08/02/2023 [facility] DATE CREATED AUTHOR AUTHOR'S ORGANIZ ATION 06/27/2024 [facility] DATE CREATED AUTHOR AUTHOR'S ORGANIZ ATION 07/07/2024 [facility] DATE CREATED AUTHOR AUTHOR'S ORGANIZ ATION 12/02/2024 [facility] DATE CREATED AUTHOR AUTHOR'S ORGANIZ ATION 12/19/2024 [facility] DATE CREATED AUTHOR AUTHOR'S ORGANIZ ATION 04/14/2025 [facility] DATE CREATED AUTHOR AUTHOR'S ORGANIZ ATION 04/16/2025 [facility] EPIC Reason for Visit (unrecogniz ed section and content) SpecialtyDiagnoses / ProceduresReferred By ContactReferred To ContactRadiology Diagnoses Primary malignant neuroendocrine neoplasm of duodenum (CMS/HCC) Procedures CT chest abdomen pelvis w IV contrast Jazlyn Mcarthur APRN-MANAGER DEPARTMENT [address] [address] [facility] [place] [phone] Referral IDStatusReasonVictoria DateExpiration DateVisits RequestedVisits [id number] Review Perform Procedure [id number] / ProceduresReferred By ContactReferred To ContactGastroenterology Diagnoses Primary malignant neuroendocrine neoplasm of duodenum (CMS/HCC) Procedures EGD NV ESOPHAGOGASTRODUODENOSCOPY TRANSORAL DIAGNOSTIC NV EGD TRANSORAL BIOPSY SINGLE/MULTIPLE Jazlyn Mcarthur, OPERATIONS SUPPORT ANALYST-MANAGER DEPARTMENT [address] [address] [facility] [place] [phone] Referral IDStatusReasonStpamplico DateExpiration DateVisits RequestedVisits [id number] [id number] Med Request SpecialtyDiagnoses / ProceduresReferred By ContactReferred To ContactRadiology Diagnoses Exam for clinical trial Procedures US COMPARISON OF OUTSIDE FILMS Grace Justice PA-C [address] [facility] [address] [place] [address] Referral IDStatusReasonStpamplico DateExpiration DateVisits RequestedVisits [id number] Review/[id number] / ProceduresReferred By ContactReferred To ContactGastroenterology Diagnoses Primary malignant neuroendocrine neoplasm of duodenum (Multi) Procedures Endoscopic Ultrasound (Upper) [place] [address] [facility] [address] [place] [address] Referral IDStatusReasonStpamplico DateExpiration DateVisits RequestedVisits [id number] Review/[id number] / ProceduresReferred By ContactReferred To ContactRadiology Diagnoses Bilateral renal cysts Adrenal adenoma, left Procedures MRI ABDOMEN W WO CONTRAST Grace Justice PA-C [address] [place] [address] [facility] [address] [place] [address] Referral IDStatusReasonStpamplico DateExpiration DateVisits RequestedVisits [id number]/17/20246/599175IyfcznVebgfadpIlahtgxlAmeupdjrnkqo ReasonCommentsPainSpecialtyDiagnoses / ProceduresReferred By ContactReferred To ContactOrthopaedic Surgery Diagnoses Left rotator cuff tear arthropathy Chronic pain of right knee Arthritis Miriam Gatica, ANJEL [address] [place] [address] Phone: tel: fax: Jenniffer Sears PA [address] [facility] [address] [place] [address] Phone: tel: fax: Referral IDStatusReasonVictoria DateExpiration DateVisits RequestedVisits [id number] Specialty Services Required /[id number] / ProceduresReferred By ContactReferred To ContactGastroenterology Diagnoses Primary malignant neuroendocrine neoplasm of duodenum (Multi) Procedures EGD NV ESOPHAGOGASTRODUODENOSCOPY TRANSORAL DIAGNOSTIC NV EGD TRANSORAL BIOPSY SINGLE/MULTIPLE Jeremiah Magaña MD [address] [facility] [address] [place] [address] Referral IDStatusReasonStart DateExpiration DateVisits RequestedVisits [id number] Review/[id number] / ProceduresReferred By ContactReferred To ContactRadiology Diagnoses Primary malignant neuroendocrine neoplasm of duodenum (Multi) Procedures CT chest [place] [address] [place] [address] Referral IDStatusReasonStart DateExpiration DateVisits RequestedVisits [id number] Perform Procedure /[id number] DateCommentsMed Egchhk744ReasonComments Follow-upReasonCommentsMed RefillReasonCommentsDiabetesReasonCommentsDiabetes HyperlipidemiaHypertensionReasonOnset DateCommentsMed Gocuib3810/11/2024Reason Onset DateCommentsMed Xeifjy0610/19/2024ReasonCommentsAbdominal PainFeverReason CommentsMedicare Annual Wellness Visit InitialReasonCommentsAnkle PainSpecialty Diagnoses / ProceduresReferred By ContactReferred To ContactPodiatry Diagnoses Effusion, left ankle Procedures NV UNLISTED EVALUATION AND MANAGEMENT SERVICE Tomeka Rosado, ANJEL [address] [place] [address] Phone: tel: fax: Jonathan Petty DPM [address] [facility] [address] [place] [address] Phone: tel: fax: Referral IDStatusReasonStart DateExpiration DateVisits RequestedVisits [id number]/29/20253/096141YuclyzEsiewdavVhvphx-fyVonnn check Care Teams (unrecognized sec tion and content) Team MemberRelationshipSpecialtyStart DateEnd Date Renea Barajas DO [address] [facility] [place] [address] PCP - GeneralFamily Odrrvcqt87/12/23Te MemberRelationshipSpecialtyStart Date End Date Renea Barajas DO [address] [facility] [place] [address] PCP - GeneralFamily Etgyxtzr20/12/23Te MemberRelationshipSpecialtyStart Date End Date Renea Barajas DO [address] [facility] [place] [address] PCP - GeneralFamily Vkkvkomk09/12/23Te MemberRelationshipSpecialtyStart Date End Date Shaikh Ayala MD [address] [facility] [address] PCP - GeneralInternal Medicine07/15/23Team MemberRelationshipSpecialtyStart Date End Date Shaikh Ayala MD [address] [place] [address] PCP - GeneralInternal Medicine07/15/23Te MemberRelationshipSpecialtyStart Date End Date Renea Barajas DO [address] [facility] [place] [address] PCP - GeneralFamily Sxpmgdyi56/12/23 [place] [address] [place] [address] Consulting PhysicianHematology and Oncology06/15/23Team MemberRelationship SpecialtyStart DateEnd Date Shaikh Ayala MD [address] [place] [address] PCP - General07/31/23Team MemberRelationshipSpecialtyStart DateEnd Date Shaikh Ayala MD [address] [place] [address] PCP - General07/31/23Team MemberRelationshipSpecialtyStart DateEnd Date Shaikh Ayala MD [address] [place] [address] [facility] - [facility]07/15/23 Renea Barajas DO [address] [place] [address] PCP - [facility]08/14/23Team MemberRelationshipSpecialtyStart DateEnd Date Renea Barajas DO [address] [place] [address] PCP - [facility]08/14/23 Miriam Gatica NP [address] [place] [address] Nurse PractitionerB[facility]ly Hospital Tqbqkfsc99/29/24Team MemberRelationshipSpecialtyStart DateEnd Date Renea Barajas DO [address] [place] [address] PCP - [facility]08/14/23 Gerald Low MD [address] [place] [address] PCP - GeneralFamily Vppevfqn46/30/24 Miriam Gatica NP [address] [place] [address] Nurse PractitionerB[facility]ly Hospital Tddvvwlt99/29/24Team MemberRelationshipSpecialtyStart DateEnd Date StepanRenea Leena DO [address] [place] [address] PCP - [facility]08/14/23 Gerald Low MD [address] [place] [address] PCP - [facility]04/13/24 Miriam Gatica NP [address] [place] [address] Nurse PractitionerMemorial [facility] Health04/12/24Team MemberRelationshipSpecialtyStart DateEnd Date StepanRenea DO [address] [facility] [place] [address] PCP - [facility]08/14/23 Gerald Low MD [address] [place] [address] PCP - [facility] Lmgjkrye17/30/24 Miriam Gatica NP [address] [place] [address] Nurse PractitionerFamily Onycfadw78/29/24Team MemberRelationshipSpecialtyStart DateEnd Date Renea Barajas DO [address] [place] [address] PCP - GeneralFamily Aahaaaip15/12/23 [place] [address] [place] [address] Consulting PhysicianHematology and Oncology06/15/23Team MemberRelationship SpecialtyStart DateEnd Date Shaikh Ayala MD [address] [place] [address] PCP - GeneralInternal Medicine12/31/23 [place] [address] [place] [address] Consulting PhysicianHematology and Oncology06/15/23Team MemberRelationship SpecialtyStart DateEnd Date Shaikh Ayala MD [address] [place] [address] PCP - GeneralInternal Medicine07/15/23 Renea Barajas DO [address] [place] [address] PCP - [facility]08/14/23Team MemberRelationshipSpecialtyStart DateEnd Date Shaikh Ayala MD [address] [place] [address] PCP - GeneralInternal Medicine07/15/23 Renea Barajas DO [address] [place] [address] PCP - ACO [facility]08/14/23Te MemberRelationshipSpecialtyStart DateEnd Date Shaikh Ayala MD [address] [place] [address] PCP - GeneralInternal Medicine12/31/23 [place] [address] [place] [address] Consulting PhysicianHematology and Oncology06/15/23Te MemberRelationship SpecialtyStart DateEnd Date Shaikh Ayala MD [address] [place] [place] [address] PCP - GeneralInternal Medicine12/31/23 [place] [address] [place] [address] Consulting PhysicianHematology and Oncology06/15/23Te MemberRelationship SpecialtyStart DateEnd Date Renea Barajas DO [address] [place] [address] PCP - ACO [facility]08/14/23 Gerald Low MD [address] [place] [address] PCP - GeneralB[facility] Hospital Swhzuhpu12/30/24 Miriam Gatica NP [address] [place] [address] Nurse PractitionerFamily Ieyamxxy84/29/24Team MemberRelationshipSpecialtyStart DateEnd Date Renea Barajas DO [address] [place] [address] PCP - ACO Reach08/14/23 Gerald Low MD [address] [place] [address] PCP - GeneralFamily Qwidebur05/30/24 Miriam Gatica NP [address] [place] [address] Nurse Practitionermily Rrrcbrrv60/29/24Team MemberRelationshipSpecialtyStart DateEnd Date Gerald Low MD [address] [place] [address] PCP - GeneralFamily Ipixhuhg23/30/24 Renea Barajas DO [address] [facility] [place] [address] PCP - ACO Reach07/29/24 Miriam Gatica, ANJEL Nurse PractitionerMercyone West [facility]ines Medical Centerly Avlqvbol15/29/24Team MemberRelationshipSpecialtyStart DateEnd Date Gerald Low MD [address] [place] [address] PCP - GeneralFamily Geueanud38/30/24 Renea Barajas DO [address] [facility] [place] [address] PCP - ACO Reach07/29/24 Miriam Gatica, ANJEL Nurse PractitionerMem[facility]04/12/24Team MemberRelationshipSpecialtyStart DateEnd Date Gerald Low MD [address] [place] [address] PCP - GeneralMem[facility] Health04/13/24 Miriam Gatica RN SCHOOL Nurse PractitionerMemorial [facility]04/12/24Team MemberRelationshipSpecialtyStart DateEnd Date Gerald Low MD [address] [place] [address] PCP - GeneralMem[facility]04/13/24 Mriiam Gatica NP Nurse PractitionerMemorial [facility] Health04/12/24Team MemberRelationshipSpecialtyStart DateEnd Date Gerald Low MD [address] [place] [address] [facility] - [facility] Dikqbpdc03/30/24 Miriam Gatica NP Nurse PractitionerMem[facility]04/12/24Team MemberRelationshipSpecialtyStart DateEnd Date Gerald Low MD [address] [place] [address] PCP - GeneralFamily Hwgcgrrp77/30/24 Miriam Gatica NP [facility] Ozxofern39/29/24Team MemberRelationshipSpecialtyStart DateEnd Date Gerald Low MD [address] [place] [address] [facility] - [facility] Rzqqmzik80/30/24 Miriam Gatica, ANJEL Nurse PractitionerMem[facility]04/12/24Team MemberRelationshipSpecialtyStart DateEnd Date Gerald Low MD [address] [place] [address] PCP - [facility]04/13/24 Miriam Gatica NP Nurse PractitionerMem[facility]04/12/24Team MemberRelationshipSpecialtyStart DateEnd Date Gerald Low MD [address] [place] [address] PCP - GeneralMem[facility]04/13/24 Miriam Gatica, ANJEL Nurse PractitionerMem[facility]04/12/24Team MemberRelationshipSpecialtyStart DateEnd Date Gerald Low MD [address] [place] [address] PCP - GeneralMem[facility]04/13/24 Miriam Gatica NP Nurse PractitionerMem[facility]04/12/24Team MemberRelationshipSpecialtyStart DateEnd Date Gerald Low MD [address] [place] [address] PCP - Generalmily Fkvhfvss91/30/24 Miriam Gatica NP [facility] Vklldulp07/29/24Team MemberRelationshipSpecialtyStart DateEnd Date Gerald Low MD [address] [place] [address] PCP - Generalmily Bdrztssc74/30/24 Miriam Gatica NP Nurse PractitionerMem[facility]04/12/24Team MemberRelationshipSpecialtyStart DateEnd Date Gerald Low MD [address] [place] [address] PCP - Generalmily Uhahcbhd81/30/24 Miriam Gatica NP Nurse PractitionerMem[facility]04/12/24Team MemberRelationshipSpecialtyStart DateEnd Date Shaikh Ayala MD PCP - General07/31/23Team MemberRelationshipSpecialtyStart DateEnd Date Gerald Low MD [address] [place] [address] PCP - GeneralMercyone [facility]ly Rxrmxqqc32/30/24 Miriam Gatica NP [facility] Ukpzznpn88/29/24Team MemberRelationshipSpecialtyStart DateEnd Date Gerald Low MD [address] [place] [address] PCP - Generalmily Thrspnhm15/30/24 Miriam Gatica NP Nurse PractitionerMercyone [facility]ly Iqxahpkn67/29/24Team MemberRelationshipSpecialtyStart DateEnd Date Shaikh Ayala MD PCP - General07/31/23Team MemberRelationshipSpecialtyStart DateEnd Date Gerald Low MD [address] [place] [address] [facility] - [facility] Eprhzjgy02/30/24 Miriam Gatica NP [facility] Pract[facility]erB[facility] Hospital Djwqrgpv81/29/24Team MemberRelationshipSpecialtyStart DateEnd Date Gerald Low MD [address] [place] [address] PCP - GeneralMer[facility]one [facility] Centerly Ywdpjadt19/30/24 Miriam Gatica NP [facility] Zyuqzlkj03/29/24Team MemberRelationshipSpecialtyStart DateEnd Date Gerald Low MD [address] [place] [address] [facility] - [facility] Lcipgpgo56/30/24 Miriam Gatica NP Nurse PractitionerB[facility] Hospital Onsftheu81/29/24 Team Status: Active Member Role Status Dates Tomeka Rosado NP-C Primary Care Provider Active Team Status: Active Member Role Status Dates Tomeka Rosado NP-Slime Attending Provider Active Start: February 14, 2025 Team Status: Inactive Member Role Status Dates Tomeka Rosado NP-Slime Primary Care Provider Active Start: March 13, 2025 End: March 13, 2025Tomeka Rosado NP-CAttending ProviderActiveStart: March 13, 2025 End: March 13, 2025Team MemberRelationshipSpecialtyStart DateEnd Date Shaikh Ayala MD [address] [place] [address] PCP - GeneralInternal Medicine12/31/23 [place] [address] [place] [address] Consulting PhysicianHematology and Oncology06/15/23Team MemberRelationship SpecialtyStart [place] [address] [place] [address] Consulting PhysicianHematology and Oncology06/15/23Team MemberRelationship SpecialtyStart DateEnd Date Renea Barajas DO PCP - GeneralFamily Umiqyjkb88/12/237 [place] [address] [place] [address] Consulting PhysicianHematology and Oncology06/15/23Team MemberRelationship SpecialtyStart DateEnd Date Gerald Low MD [address] [place] [address] PCP - GeneralFamily Rlxxilms05/30/24 Miriam Gatica NP [facility] Hplpunud46/29/24Team MemberRelationshipSpecialtyStart DateEnd Date Gerald Low MD [address] [place] [address] [facility] - [facility] Cxzdourv21/30/24 Miriam Gatica NP [facility]erB[facility] Pefeagip53/29/24 Team Status: Active Member Role Status Dates LAVERNE Dolan Primary Care Provider Active Start: March 20, 2025 Pj Isabel DOSheila ProviderActiveStart: March 20, 2025 Team Status: Inactive Member Role Status Dates Tomeka Rosado NP-Slime Primary Care Provider Active Start: March 29, 2025 End: March 29, 2025Tomeka Rosado NP-CAttending ProviderActiveStart: March 29, 2025 End: March 29, 2025Team MemberRelationshipSpecialtyStart DateEnd Date Gerald Low MD [address] [place] [address] [facility] - [facility] Nmdsjyaz30/30/24 Miriam Gatica NP [facility] Pract[facility]erB[facility] Inlqzfqb43/29/24Team MemberRelationshipSpecialtyStart DateEnd Date Gerald Low MD [address] [place] [address] PCP - GeneralMercyone [facility] Centerly Ifbudgis70/30/24 Miriam Gatica NP Nurse PractitionerFamily Omdpzjgq12/29/24Team MemberRelationshipSpecialtyStart DateEnd Date Shaikh Ayala MD PCP - GeneralInternal Medicine07/15/2409 Renea Barajas DO [address] [facility] [address] [place] [address] PCP - ACO Reach/ Gerald Low MD [address] [place] [address] PCP - GeneralFamily Qoiniegl38/30/24 Renea Barajas DO [address] [facility] [address] [place] [address] PCP - ACO Reach Miriam Gatica NP Nurse Practitionermily Gtbluxhz78/29/24Team MemberRelationshipSpecialtyStart DateEnd Date Shaikh Ayala MD PCP - GeneralInternal Medicine07/15/2409 Renea Barajas DO [address] [facility] [address] [facility] [place] [address] PCP - ACO Reach/ Gerald Low MD [address] [place] [address] PCP - GeneralFamily Awkhymbr76/30/24 StepanRenea dunaway DO [address] [facility] [address] [place] [address] PCP - ACO Reach2/14/254/09/06 Miriam Gatica NP Nurse PractitionerMem[facility]illa [facility]04/12/24Team MemberRelationshipSpecialtyStart DateEnd Date Gerald Low MD [address] [place] [address] PCP - [facility]04/13/24 Miriam Gatica NP Nurse PractitionerMem[facility] Health04/12/24Team MemberRelationshipSpecialtyStart DateEnd Date Gerald Low MD [address] [place] [address] PCP - [facility]04/13/24 Miriam Gatica NP Nurse PractitionerMemorial [facility]illa Health04/12/24 Goals (unrecognized section and content) Goals may [...] BE BASED ON THE PRIMARY CLINICAL RECORDS. [facility] [employer] [facility]. provides no warranty or guarantee of the accuracy or completeness of information in this document.
--- OUTSIDE RECORDS SUMMARY | 2025-04-19 08:21 | XMS_ITS | Encounter Summary ---
Author Organization [facility] Address [address] [place] [address] Care Team Providers Care Roustabout Crew Pusher Name Role Phone Peggy Gatica MELT ROOM OPERATOR Unavailable [phone] Gerald Low MD Primary Care Provider [phone] Encounter Details DateTypeDepartmentCare Team (Latest Contact Info)Kbtzyipskpe59/25/2025Travel Social History Tobacco UseTypesPacks/DayYears UsedDateSmoking Tobacco: HvkcudRvwvosaiby1727946 - 1983Passive Smoke Exposure: NeverSmokeless Tobacco: NeverAlcohol UseStandard Drinks/WeekCommentsYes0 (1 standard drink = 0.6 oz pure alcohol)[id number] Health LiteracyAnswerDate RecordedHow often do you need to have someone help you when you read instructions, pamphlets, or other written material from your doctor or pharmacy?Lojsgo8007/06/2024Humiliation, Afraid, Rape, and Kick questionnaireAnswerDate RecordedWithin the [...] relatives?Once a week07/06/2024How often do you attend religion or temple services?Patient sfqrvoef41/22/2025Do you belong to any clubs or organizations such as religion groups, unions, fraternal or athletic roseline ups, or school groups?No07/06/2024How often do you attend meetings of the clubs or organizations you belong to?Never07/06/2024re you , , , , never , or living with a partner?Glhaifq6507/06/2024 AUDIT-CAnswerDate RecordedQ1: How often do you have [...] hard at all07/06/2024PHQ-2 AnswerDate RecordedPatient Health Questionnaire-2 Yuswa304Fin[facility] of Occupational Health - Occupational Stress QuestionnaireAnswerDate RecordedDo you feel stress - tense, restless, nervous, or anxious, or unable to sleep at night because yourmind is troubled all the time - these days?Only a gyswgu5207/06/2024Exercise Vital SignAnswerDate RecordedOn average, how many days [...] InformationValueDate RecordedSex Assigned at BirthNot on fileLegal AmgHdjn2908/27/2022 7:35 PM EDTGender PleolmgfOidt29/15/2023 7:35 PM EDTSexual OrientationNot on filedocumented as of this encounter Plan of Treatment Not on file documented as of this encounter Visit Diagnoses Not on filedocumented in this encounter Additional Health Concerns AssessmentNoted TimePHQ-9 Depression Total Score: 13001/09/2025 8:34 AM EDT documented as of this encounter Care Teams Team MemberRelationshipSpecialtyStart DateEnd Date Gerald Low MD [address] [place] [address] PCP - GeneralFamily Dvsfjoci86/30/24 Peggy Gatica NP Nurse PractitionerFamily Ksnxuoit81/29/24documented as of this encounter
--- OUTSIDE RECORDS SUMMARY | 2025-04-19 08:21 | XMS_ITS | Encounter Summary ---
Author Organization [facility] Address [address] [facility] [place] [address] Care Team Providers Care Barbering Teacher Name Role Phone Peggy Gatica RACECOURSE BARRIER ATTENDANT Unavailable [phone] Gerald Low MD Primary Care Provider [phone] Encounter Details DateTypeDepartmentCare Team (Latest Contact Info)Ypaweriksfc05/31/2025amboo flowsheet [facility] [address] [place] [address] Jonathan Cowan DPInna [address] [address] Social History Tobacco UseTypesPacks/DayYears UsedDateSmoking Tobacco: OcogkjKvyuagyoze6775401 - 1984Passive Smoke Exposure: NeverSmokeless Tobacco: NeverAlcohol UseStandard Drinks/WeekCommentsYes0 (1 standard drink = 0.6 oz pure alcohol)[id number] Health LiteracyAnswerDate RecordedHow often do you need to have someone help you when you read instructions, pamphlets, or other written material from your doctor or pharmacy?Dpczip8607/06/2024Humiliation, Afraid, Rape, and Kick questionnaireAnswerDate RecordedWithin the [...] relatives?Once a week07/06/2024How often do you attend protestant or congregational services?Patient uefinrmr81/22/2025Do you belong to any clubs or organizations such as protestant groups, unions, [employer] or athletic roseline ups, or school groups?No07/06/2024How often do you attend meetings of the clubs or organizations you belong to?Never07/06/2024re you , , , , never , or living with a partner?Wdmvgbf2507/06/2024 AUDIT-CAnswerDate RecordedQ1: How often do you have [...] hard at all07/06/2024PHQ-2 AnswerDate RecordedPatient Health Questionnaire-2 Lkppr509Finheber valley medical center [facility] of Occupational Health - Occupational Stress QuestionnaireAnswerDate RecordedDo you feel stress - tense, restless, nervous, or anxious, or unable to sleep at night because yourmind is troubled all the time - these days?Only a iyildx0307/06/2024Exercise Vital SignAnswerDate RecordedOn average, how many days [...] steady place to sleep or slept in calmarelter (including now)?No02/18/2023Housing Stability Vital SignAnswerDate RecordedIn the [...] InformationValueDate RecordedSex Assigned at BirthNot on fileLegal FxoGyis8208/27/2022 7:35 PM EDTGender JkhlzjhtJxni36/15/2023 7:35 PM EDTSexual OrientationNot on filedocumented as of this encounter Plan of Treatment Not on file documented as of this encounter Visit Diagnoses Not on filedocumented in this encounter Additional Health Concerns AssessmentNoted TimePHQ-9 Depression Total Score: 1307 8:34 AM EDT documented as of this encounter Care Teams Team MemberRelationshipSpecialtyStart DateEnd Date Gerald Low MD [address] [place] [address] PCP - GeneralFamily Ebujesuj18/30/24 Peggy Gatica NP Nurse PractitionerFamily Jlgfnopo39/29/24documented as of this encounter
--- OUTSIDE RECORDS SUMMARY | 2025-04-19 08:21 | XMS_ITS | Encounter Summary ---
Author Organization [facility] Address [address] [place] [address] Care Team Providers Care Library Aide Name Role Phone Tomeka Rosado MD Primary Care Provider [phone] Reason for Visit * ReasonCommentsMed Change Request Encounter Details DateTypeDepartmentCare Team (Latest Contact Info)Cflabjmncez12/31/2025Refill [facility] [address] [place] [address] Sukhjinder Schmitz MD [address] [place] [address] Elevated troponin Social History Tobacco UseTypesPacks/DayYears UsedDateSmoking Tobacco: SydkowYuqlncplrm698.9 10/14/1967 - 09/14/1983Smokeless Tobacco: NeverAlcohol UseStandard Drinks/Week CommentsNot Currently0 (1 standard drink = 0.6 oz pure alcohol)I rarely drink. [facility] UtilitiesAnswerDate RecordedIn the past 12 months has the [place], gas, oil, or water [facility] threatened to shut off services in your [...] housing, medical care, and heating?Not hard at all03/21/2025UT Safety & EnvironmentAnswerDate RecordedFear of Current or Ex-PartnerNot on file08/06/2023 Emotionally AbusedNot on file08/06/2023hysically AbusedNot on file08/06/2023 Sexually AbusedNot on file08/06/2023hysically or Sexually AbusedNot on file 08/06/2023TransportationAnswerDate RecordedIn the past 12 months, has lack of transportation kept you from medical appointments or from getting medications?No 03/21/2025Lack of Transportation (Non-Medical)Not on file03/21/2025Housing Stability Vital SignAnswerDate RecordedIn the last 12 months, was there a time when you were not able to pay the mortgage or rent on time?No03/21/2025In the past 12 months, how many times have you moved where you were living? At any time in the past 12 months, were you homeless or living in a mcfp (including now)?No03/21/2025Hunger Vital SignAnswerDate RecordedWithin the past 12 months, you worried that your food would run out before you got the money to buymore.Never true03/21/2025Ran Out of Food in the Last YearNot on file 03/21/2025Sex and Gender InformationValueDate RecordedSex Assigned at BirthMale 07/28/2023 6:49 AM ESTLegal AvqXfhj4512/12/2021 12:14 AM EDTGender IdentityMale 07/28/2023 6:49 AM ESTSexual OrientationHeterosexual or Lhohwima34/13/2024 6:49 AM ESTdocumented as of this encounter Plan of Treatment DateTypeDepartmentCare Team (Latest Contact Info)Mvkbiwrlkzf04/25/2025 11:15 AM ESTOffice [facility] [address] [place] [address] Noe San MD [address] [place] [address] documented as of this encounter Visit Diagnoses Diagnosis Elevated troponin Other abnormal blood chemistry documented in this encounter Care Teams Team MemberRelationshipSpecialtyStart DateEnd Date Tomeka Rosado MD [address] [place] [address] PCP - GeneralNurse Practitioner11/22/24documented as of this encounter
--- OUTSIDE RECORDS SUMMARY | 2025-04-19 08:21 | XMS_ITS | Clinical Summary ---
Author Organization [facility] Address [id number] [address] [place] [address] Care Team Providers Care Natural Resources Instructor Name Role Phone Renea Barajas DO Primary Care Provider Unavaila ble Allergies Active AllergyReactionsCriticalityNoted AnitNoplzvjjYtwekvucjzhd77/10/2018 Ciprofloxacin Hcl06/24/20215692Yevkvxyqnr11/10/2022 Medications MedicationSigDispense QuantityRefillsLast FilledStart DateEnd DateStatus allopurinoL [...] standard drink = 0.6 oz pure alcohol)sociallyChildcareAnswerDate LilszjnmVpjitpwthFdkvwfh00/12/2019EmploymentAnswerDate RecordedEmploymentUnknown 11/24/2018Purpose - LifeAnswerDate RecordedPurpose and direction in lifeUnknown 07/26/2020ex and Gender InformationValueDate RecordedSex Assigned at BirthNot on fileLegal XiyYygb1301/18/2015 11:30 AM EDTGender IdentityNot on fileSexual OrientationNot on file Last Filed Vital Signs Vital SignReadingTime TakenCommentsBlood Xthuezfm333/62006/24/2021 1:16 PM EST Yqxmm101305/01/2015 12:00 AM ZGYMpfnjlsztlx32.9 ??C (98.4 ??F)06/24/2021 1:16 PM ESTRespiratory Rate--Oxygen Saturation--Inhaled Oxygen Concentration--Weight 105.2 kg (232 lb)06/24/2021 1:16 PM TPPJsvotr661.8 cm (5' 10 )06/24/2021 1:16 PM ESTBody Mass Index33.29006/24/2021 1:16 PM EST Plan of Treatment Health MaintenanceDue DateLast DoneCommentsDepression Jcbonzear60/09/1961Tobacco Jcbzwbhok82/09/1961bdominal Aortic Aneurysm (AAA) Dpbrre3703/23/2014Fall Risk Fcxxquvuc33/09/2014Zoster (Shingles) Vaccine (2 of 3), 05/15/20163570Fnevpggibjb27, 10/14/2010RSV ( or age 60+ yrs) (1 - 1-dose 75+ series)4COVID-19 Vaccine (4 - 2025-26 season) 510/04/2021, 08/07/2020, 07/17/2020Influenza Jszclyf9502/13/2025 03/01/2021, 02/24/2020, 03/09/2019, Additional history existsDTaP,Tdap and Td [...] Insurance Care Teams Team MemberRelationshipSpecialtyStart DateEnd Date Rneea Barajas DO [facility]CP - [facility]11/21/20
--- OUTSIDE RECORDS SUMMARY | 2025-04-19 08:21 | XMS_ITS | Encounter Summary ---
Author Organization [facility] Address [address] [place] [address] Care Team Providers Care Solderer Dipper Name Role Phone Shaikh MARY Ayala Primary Care Provider [phone] Renea Barajas DO Unavailable [phone] Peggy Gatica SUPERVISORY AIDE Unavailable [phone] Gerald Low MD Primary Care Provider [phone] Renea Barajas DO Unavailable [phone] Encounter Details DateTypeDepartmentCare Team (Latest Contact Info)Flukxwbqdwe06/02/2024Clinisync Result Encounter [facility] External Department Unsolicited Shaikh Ayala MD [address] [place] [address] Social History Tobacco UseTypesPacks/DayYears UsedDateSmoking Tobacco: VoahzeAftiogpyxy5910475 - 1983Passive Smoke Exposure: NeverSmokeless Tobacco: NeverAlcohol UseStandard Drinks/WeekCommentsYes0 (1 standard drink = 0.6 oz pure alcohol)caffeine: none B1300 Health LiteracyAnswerDate RecordedHow often do you need to have someone help you when you read instructions, pamphlets, or other written material from your doctor or pharmacy?Qojkuc4007/06/2024Humiliation, Afraid, Rape, and Kick questionnaireAnswerDate RecordedWithin the [...] relatives?Once a week07/06/2024How often do you attend rastafarian or sikhism services?Patient ckrtnqol87/22/2025Do you belong to any clubs or organizations such as rastafarian groups, unions, fraternal or athletic roseline ups, or school groups?No07/06/2024How often do you attend meetings of the clubs or organizations you belong to?Never07/06/2024re you , , , , never , or living with a partner?Dnzvtvu7707/06/2024 AUDIT-CAnswerDate RecordedQ1: How often do you have [...] hard at all07/06/2024PHQ-2 AnswerDate RecordedPatient Health Questionnaire-2 Ompda445Finbrigham city community [facility] [place] of Occupational Health - Occupational Stress QuestionnaireAnswerDate RecordedDo you feel stress - tense, restless, nervous, or anxious, or unable to sleep at night because yourmind is troubled all the time - these days?Only a kpxflz9607/06/2024Exercise Vital SignAnswerDate RecordedOn average, how many days [...] InformationValueDate RecordedSex Assigned at BirthNot on fileLegal FrvIjoi1508/27/2022 7:35 PM EDTGender XrywuxncMnim06/15/2023 7:35 PM EDTSexual OrientationNot on filedocumented as of this encounter Functional Status * AUDIT-C ScoreAnswerDate of KtqchumnkySamaxu579/22/2025 10:56 AM Pablo Cotto * Q1: How often do you have a drink containing alcohol?AnswerDate of Assessment AuthorMonthly or less07/06/2024 10:56 AM Pablo Cotto * Q2: How many drinks containing alcohol do you have on a typical day when you are drinking?AnswerDate of AssessmentAuthor1 or 10:56 AM ANTON Gray Generic * Q3: How often do you have six or more drinks on one occasion?AnswerDate of JegajzksrvHlyjboIbinw72/22/2025 10:56 AM Kirti Generic * Over the past 2 weeks, how often have you been bothered by any of the following problems?QuestionAnswerDate of AssessmentAuthorLittle interest or pleasure in doing thingsNot at all01/09/2025 8:34 AM Ruby Gonzalez MA Feeling down, depressed, or hopelessNot at all01/09/2025 8:34 AM Ruby Gonzalez MAPatient Health Questionnaire-2 Ajaok737 8:34 AM Ruby Mccollum MA * QuestionAnswerDate of AssessmentAuthorTrouble falling or staying asleep, or sleeping too muchNearly every day01/09/2025 8:34 AM Ruby Gonzalez MA Feeling tired or having little energyNearly every day01/09/2025 8:34 AM Ruby Mccollum MAPoor appetite or overeatingNearly every day01/09/2025 8:34 AM Ruby Gonzalez MAFeeling bad about yourself - or that you are a failure or have let yourself or your family downSeveral days01/09/2025 8:34 AM Ruby Gonzalez MATrouble concentrating on things, such as reading the newspaper or watching televisionNot at all01/09/2025 8:34 AM Ruby Gonzalez, MAMoving or speaking so slowly that other people could have noticed? Or the opposite - being so fidgety or restless that you have been moving around a lot more than usual.Nearly every day01/09/2025 8:34 AM Ruby Gonzalez MAThoughts that you would be better off or hurting yourself in some wayNot at all01/09/2025 8:34 AM Ruby Gonzalez MAPatient Health Questionnaire-9 Vfgkx5831/28/2025 8:34 AM Ruby Gonzalez MA documented as of this encounter Plan of Treatment Not on file documented as of this encounter Procedures Procedure NamePriorityDate/TimeAssociated DiagnosisCommentsUS RENAL BI07/17/2023 10:21 AM EST documented in this encounter Results * US RENAL BI (07/17/2023 10:21 AM EST)Anatomical RegionLateralityModalityOther Specimen (Source)Anatomical Location / LateralityCollection Method / Volume Collection TimeReceived Time07/17/2023 10:21 AM EST Narrative 07/17/2023 10:23 AM EST [facility] ?[address] ? [place] [address] ? Ultrasound Report ? Signed ? Patient: BRENT CAR F ?MR#: [id number] ?? : 1950 ?Acct:[id number] ?? Age/Sex: 73 / M ?ADM Date: 07/17/23 ?? Loc: US ? Attending Dr: Shaikh Jamie Cartagena ? Ordering Physician: Shaikh Mitzi Ayala ?? Date of Service: 07/17/23 ?? Procedure(s): US renal BI ?? Accession Number(s): [id number] ? cc: VANESSA FERRIS ; Shaikh Mitzi Ayala ? [facility] ? [address] ? [place] [address] ? Patient Name: ?? BRENT CAR ? MRN: [id number] ? date: 1950 ?Sex: M ?? Assigned Patient Location: US ?? Current Patient Location: US ?? Accession/Order Number: [id number] ?? Exam Date: 07/17/2023 ??09:40 ?Report Date: 07/17/2023 ??10:21 ? At the request of: ?JAMIE ? Procedure: ??US renal BI ? EXAM: US renal BI ? HISTORY: . Left Renal Cyst N28.1 . ? COMPARISON: None. ? TECHNIQUE: Grayscale and color imaging was performed ? FINDINGS: Scanning of the right kidney demonstrates right kidney to measure 12 ? x 6.5 x 5.5 cm. Color-flow is noted. No solid renal cortical masses or ?? hydronephrosis is noted. There is a 9 x 7 mm simple cyst involving the upper ?? pole of the right kidney. ? Left kidney measures 11.3 x 5.9 x 5.3 cm. Color-flow is noted. There is a 5 x ?? 4.5 cm simple cyst involving the upper pole of the left kidney. There is a 3.0 ? x 4.1 cm cyst involving the midpole of the left kidney. ? The filled bladder is grossly unremarkable. No masses are noted. ? US/US renal BI ?? IMPRESSION: ? 1. Bilateral renal cortical cysts. No hydronephrosis or solid renal cortical ?? masses. ?? 2. Normal-appearing filled bladder. ? Electronically authenticated by: MARCELLO ??MALINDA ?? Date: 07/17/2023 ??10:21 ? Dictated By: ?Marcello Cowan M.D. ? Signed By: ?07/17/23 1023 ? DD/ 1021 ? TD/TT: ? Jtac: Procedure Note Radiology, Radiologist, MD - 07/17/2023 [place] [address] Ultrasound Report Signed Patient: BRENT CAR FMR#: [id number] : 1950cct:[id number] Age/Sex: 73 / MADM Date: 07/17/23 Loc: US Attending Dr: Shaikh Jamie Cartagena Ordering Physician: Shaikh Mitzi Ayala Date of Service: 07/17/23 Procedure(s): US renal BI Accession Number(s): [id number] cc: VANESSA FERRIS ; Shaikh Mitzi Ayala The [address] [address] Patient Name: BRENT CAR MRN: [id number] date: 1950 Sex: M Assigned Patient Location: US Current Patient Location: [place] Accession/Order Number: [id number] Exam Date: 07/17/2023 09:40 Report Date: 07/17/2023 [...] M.D. Signed By:07/17/23 1023 DD/ 1021 TD/TT: Jtac: Authorizing ProviderResult TypeResult StatusShaikh Jamie MDCLINISYNC IMAGING Final Result documented in this encounter Visit Diagnoses Not on filedocumented in this encounter Care Teams Team MemberRelationshipSpecialtyStart DateEnd Date Shaikh Ayala MD PCP - GeneralInternal Medicine07/15/2409 Renea Barajas DO [address] [facility] [address] [place] [address] PCP - ACO Reach Gerald Low MD [address] [place] [address] PCP - GeneralFamily Xzozoabk50/30/24 eRnea Barajas DO [address] [facility] [address] [place] [address] PCP - ACO Reach///09/06 Peggy Gatica NP Nurse PractitionerFamily Exiagjyp91/29/24documented as of this encounter
--- OUTSIDE RECORDS SUMMARY | 2025-04-19 08:21 | XMS_ITS | Encounter Summary ---
Author Organization [facility] Address [address] [place] [address] Care Team Providers Care Drafting Layout Man Name Role Phone Tomeka Rosado MD Primary Care Provider [phone] Encounter Details DateTypeDepartmentCare Team (Latest Contact Info)Gjodenfxrdr23/22/2025Telephone [facility] at [place] [address] [place] [address] Maria Guadalupe Coyne MA Social History Tobacco UseTypesPacks/DayYears UsedDateSmoking Tobacco: JakfisDgyvteiifa644.9 10/14/1967 - 09/14/1983Smokeless Tobacco: NeverAlcohol UseStandard Drinks/Week CommentsNot Currently0 (1 standard drink = 0.6 oz pure alcohol)I rarely drink. [facility] UtilitiesAnswerDate RecordedIn the past 12 [...] were you homeless or living in a detention (including now)?No03/21/2025Hunger Vital SignAnswerDate RecordedWithin the past 12 months, you worried that your food would run out before you got the money to buymore.Never true03/21/2025Ran Out of Food in the Last YearNot on file 03/21/2025Sex and Gender InformationValueDate RecordedSex Assigned at BirthMale 07/28/2023 6:49 AM ESTLegal NvtAkrf1912/12/2021 12:14 AM EDTGender IdentityMale 07/28/2023 6:49 AM ESTSexual OrientationHeterosexual or Nlitgcur93/13/2024 6:49 AM ESTdocumented as of this encounter [...] she verbalized understanding. BMP order faxed to [facility]. documented in this encounter Plan of Treatment DateTypeDepartmentCare Team (Latest Contact Info)Vngldlpoelc74/25/2025 11:15 AM ESTOffice Visit [facility] [address] [place] [address] Noe San MD [address] [place] [address] NameTypePriorityAssociated DiagnosesOrder ScheduleBasic metabolic panelLab Routine Benign hypertensive heart disease with heart failure (CMS/HCC) Expected: 04/05/2025 (Approximate), Expires: 04/05/2026documented as of this encounter Visit Diagnoses Diagnosis Benign hypertensive heart disease with heart failure (CMS/HCC)- Primary documented in this encounter Care Teams Team MemberRelationshipSpecialtyStart DateEnd Date Tomeka Rosado MD [address] [place] [address] PCP - GeneralNurse Practitioner11/22/24documented as of this encounter
--- OUTSIDE RECORDS SUMMARY | 2025-04-19 08:21 | XMS_ITS | Encounter Summary ---
Author Organization [facility] Address [address] [place] [address] Care Team Providers Care Dietary Tech Name Role Phone Shaikh MARY Ayala Primary Care Provider [phone] Renea Barajas DO Unavailable [phone] Peggy Gatica HOOP MACHINE OPERATOR Unavailable [phone] Gerald Low MD Primary Care Provider [phone] Renea Barajas DO Unavailable [phone] Encounter Details DateTypeDepartmentCare Team (Latest Contact Info)Evejaalsvre40/18/2024Clinisync Result Encounter [facility] External Department Unsolicited Provider, Generic External Data Social History Tobacco UseTypesPacks/DayYears UsedDateSmoking Tobacco: OeueksHviotegaar2475801 - 1983Passive Smoke Exposure: NeverSmokeless Tobacco: NeverAlcohol UseStandard Drinks/WeekCommentsYes0 (1 standard drink = 0.6 oz pure alcohol)OCCASSIONA;B1300 Health LiteracyAnswerDate RecordedHow often do you need to have someone help you when you read instructions, pamphlets, or other written material from your doctor or pharmacy?Plrzze3907/06/2024Humiliation, Afraid, Rape, and Kick questionnaireAnswerDate RecordedWithin the [...] relatives?Once a week07/06/2024How often do you attend denominational or baptism services?Patient sgkpancx53/22/2025Do you belong to any clubs or organizations such as denominational groups, unions, [employer] or athletic roseline ups, or school groups?No07/06/2024How often do you attend meetings of the clubs or organizations you belong to?Never07/06/2024re you , , , , never , or living with a partner?Xzuaksv8507/06/2024 AUDIT-CAnswerDate RecordedQ1: How often do you have [...] hard at all07/06/2024PHQ-2 AnswerDate RecordedPatient Health Questionnaire-2 Vsfhj157Finsevier valley hospital [place] of Occupational Health - Occupational Stress QuestionnaireAnswerDate RecordedDo you feel stress - tense, restless, nervous, or anxious, or unable to sleep at night because yourmind is troubled all the time - these days?Only a nthkik5307/06/2024Exercise Vital SignAnswerDate RecordedOn average, how many days [...] steady place to sleep or slept in [place] (including now)?No02/18/2023Housing Stability Vital SignAnswerDate RecordedIn the [...] InformationValueDate RecordedSex Assigned at BirthNot on fileLegal PfjTjqn5208/27/2022 7:35 PM EDTGender RrrvhupsMwec37/15/2023 7:35 PM EDTSexual OrientationNot on filedocumented as of this encounter Functional Status * AUDIT-C ScoreAnswerDate of MvjqicloueTjhakb010/22/2025 10:56 AM Kirti, Generic * Q1: How often do you have a drink containing alcohol?AnswerDate of Assessment AuthorMonthly or less07/06/2024 10:56 AM Kirti, Generic * Q2: How many drinks containing alcohol do you have on a typical day when you are drinking?AnswerDate of AssessmentAuthor1 or 10:56 AM Pablo Clemente * Q3: How often do you have six or more drinks on one occasion?AnswerDate of KsqkrggakaBsanyhOjomy59/22/2025 10:56 AM Kirti Generic * Over the past 2 weeks, how often have you been bothered by any of the following problems?QuestionAnswerDate of AssessmentAuthorLittle interest or pleasure in doing thingsNot at all01/09/2025 8:34 AM Ruby Gonzalez MA Feeling down, depressed, or hopelessNot at all01/09/2025 8:34 AM Ruby Gonzalez MAPatient Health Questionnaire-2 Vosbm328 8:34 AM Ruby Mccollum MA * QuestionAnswerDate [...] have let yourself or your family downSeveral 01/09/2025 8:34 AM Ruby Gonzalez MATrouble concentrating on [...] wayNot at all01/09/2025 8:34 AM Ruby Gonzalez MAPatiohiohealth [facility] Health Questionnaire-9 Qrcox2246/28/2025 8:34 AM Ruby Gonzalez MA documented as of this encounter Plan of Treatment Not on file documented as of this encounter Procedures Procedure NamePriorityDate/TimeAssociated DiagnosisCommentsCT CHEST W IV QQZMRYQG66/18/2024 7:19 AM EDT documented in this encounter Results * CT chest w IV contrast (12/31/2023 7:19 AM EDT)Anatomical RegionLaterality ModalityBody, ChestComputed TomographySpecimen (Source)Anatomical Location / LateralityCollection Method / VolumeCollection TimeReceived Time12/31/2023 7:19 AM EDT Narrative 01/01/2024 9:17 PM EDT Interpreted By: ??Lul Villegas, ??and Andrew Mckenzie STUDY: CT CHEST W IV CONTRAST; ??12/31/2023 7:55 am ?? INDICATION: Signs/Symptoms:LUNG NODULE. ?? COMPARISON: CT chest abdomen pelvis 05/26/2023 ?? ACCESSION NUMBER(S): [id number] ?? ORDERING CLINICIAN: NEFTALI GARLAND ?? TECHNIQUE: Helical data acquisition of the chest was obtained following intravenous administration of 50 mL Omnipaque 350. Images were reformatted in axial, coronal, and sagittal planes. ?? FINDINGS: LUNGS AND AIRWAYS: The trachea and central airways are patent. No endobronchial lesion is seen. ?? The bilateral lungs are clear without evidence of focal consolidation, pleural effusion, or pneumothorax. Interval resolution of the previously noted pulmonary nodule in the left lower lobe. No new pulmonary nodule is seen. ?? MEDIASTINUM AND ALEXANDREA, LOWER NECK AND AXILLA: A 2 mm hypoattenuating cyst is seen in the right thyroid lobe (series 4, image 8), which is not definitively visualized on prior. No evidence of thoracic lymphadenopathy by CT criteria. Esophagus appears within normal limits as seen. ?? HEART AND VESSELS: The thoracic aorta normal in course and caliber.There is moderate atherosclerosis present. Main pulmonary artery and its branches are normal in caliber. Mild coronary artery calcifications are seen. Please note,the study is not optimized for evaluation of coronary arteries. The cardiac chambers are not enlarged. There is no pericardial effusion seen. ?? UPPER ABDOMEN: Status post cholecystectomy. Multiple splenules are again seen. A stable exophytic cyst is seen in the left kidney. The liver is diffusely decreased in attenuation compatible with hepatic steatosis. ?? CHEST WALL AND OSSEOUS STRUCTURES: Chest wall is within normal limits. No acute osseous pathology.There are no suspicious osseous lesions. ?? IMPRESSION: 1. ??Interval resolution of the previously noted pulmonary nodule in the left lower lobe, which was likely infectious/inflammatory. 2. Stable appearance of chronic and incidental findings as described above in the body of the report. ?? I personally reviewed the images/study and I agree with the findings as stated by Nuclear Medicine fellow Magaly Morales MD. This study was interpreted at [place], [place]. ?? Signed by: Lul Villegas 01/01/2024 9:17 PM Dictation workstation: ?? [id number] Procedure Note Radiology, Radiologist, - 01/01/2024 Interpreted By: Lul Villegas and Maltbie Grace STUDY: CT CHEST W IV CONTRAST; 12/31/2023 7:55 am INDICATION: Signs/Symptoms:LUNG NODULE. COMPARISON: CT chest abdomen pelvis 05/26/2023 ACCESSION NUMBER(S): [id number] ORDERING CLINICIAN: NEFTALI GARLAND TECHNIQUE: Helical data [...] Morales MD. This study was interpreted at [place], [place]. Signed by: Lul Villegas 01/01/2024 9:17 PM Dictation workstation: [id number] Authorizing ProviderResult TypeResult StatusGeneric External Data ProviderIMG CT PROCEDURESFinal Result documented in this encounter Visit Diagnoses Not on filedocumented in this encounter Care Teams Team MemberRelationshipSpecialtyStart DateEnd Date FawShaikh kruse MD PCP - GeneralInternal Medicine07/15/2409 Renea Barajas DO [address] [address] PCP - ACO Reach/ Gerald Low MD [address] [place] [address] PCP - GeneralFamily Zuscacjd72/30/24 Renea Barajas DO [address] [phone] PCP - ACO Reach/ Peggy Gatica NP Nurse PractitionerFaMeadows Regional Medical Center04/12/24documented as of this encounter
--- OUTSIDE RECORDS SUMMARY | 2025-04-19 08:21 | XMS_ITS | Encounter Summary ---
Author Organization [facility] Address [address] [place] [address] Care Team Providers Care Director Of Trauma Name Role Phone Tomeka Rosado MD Primary Care Provider [phone] Reason for Referral * Consultation (Routine) - Pending ReviewSpecialtyDiagnoses / ProceduresReferred By ContactReferred To ContactNephrology Diagnoses CKD stage 3a, GFR 45-59 ml/min (CMS/HCC) Procedures CT OFFICE/OUTPATIENT [facility] 60 MINUTES Kanika Sanchez CNP [address] [place] [address] Phone: tel: fax: Referral IDStatusReasonStart DateExpiration DateVisits RequestedVisits [id number] Review Specialty Services Required Encounter Details DateTypeDepartmentCare Team (Latest Contact Info)Whgqbyjnwkd44/29/2025Telephone [facility] [address] [place] [address] Maria Guadalupe Coyne MA Social History Tobacco UseTypesPacks/DayYears UsedDateSmoking Tobacco: MtwdswLxraxqghls664.9 10/14/1967 - 09/14/1983Smokeless Tobacco: NeverAlcohol UseStandard Drinks/Week CommentsNot Currently0 (1 standard drink = 0.6 oz pure alcohol)I rarely drink. [facility] UtilitiesAnswerDate RecordedIn the past 12 months has the electric, gas, oil, or water [employer] threatened to shut off services in your [...] homeless or living in a half-way (including now)?No03/21/2025Hunger Vital SignAnswerDate RecordedWithin the past 12 months, you worried that your food would run out before you got the money to buymore.Never true03/21/2025Ran Out of Food in the Last YearNot on file 03/21/2025Sex and Gender InformationValueDate RecordedSex Assigned at BirthMale 07/28/2023 6:49 AM ESTLegal OwqMezm9312/12/2021 12:14 AM EDTGender IdentityMale 07/28/2023 6:49 AM ESTSexual OrientationHeterosexual or Koljszth97/13/2024 6:49 AM ESTdocumented as of this encounter Miscellaneous Notes * Telephone Encounter - Maria Guadalupe SARAH Coyne - 04/12/2025 2:56 PM EDT Images from the original note were not included. Regarding lab results from 04/12/2025: Kanika Sanchez, GABINO Smallsah SARAH Coyne Renal function is improved but still a [...] hold lasix. He also requested referral to patient account analyst closer to him. [facility]. documented in this encounter Plan of Treatment DateTypeDepartmentCare Team (Latest Contact Info)Jhgjpybwrog23/25/2025 11:15 AM ESTOffice Visit [facility] [place] [address] [place] [address] Noe San MD [address] [place] [address] NameTypePriorityAssociated DiagnosesOrder ScheduleBasic metabolic panelLab Routine Chronic systolic heart failure (CMS/HCC) Expected: 04/12/2025 (Approximate), Expires: 04/12/2026NameTypePriority Associated DiagnosesOrder ScheduleAmbulatory referral to NephrologyOutpatient ReferralRoutine CKD stage 3a, GFR 45-59 ml/min (CMS/HCC) Expected: 04/12/2025 (Approximate), Expires: 10/11/2025documented as of this encounter Visit Diagnoses Diagnosis Chronic systolic heart failure (CMS/HCC)- Primary Chronic systolic heart failure 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
--- OUTSIDE RECORDS SUMMARY | 2025-04-19 08:22 | XMS_ITS | Patient Health Record ---
Author Organization [facility] [place] Address [address] [place] [address] Care Team Providers Care Clothes Marker Name Role Phone Shaikh Ayala MD Primary Care Provider Unavaila ble Allergies Allergen (clinical drug ingredient) Drug/Non Drug Allergy documented on EMR Reaction Allergy Type Onset Date Status azithromycin Azithromycin Unknown Drug Allergy ActivelisinoprilLisinoprilcoughDrug AllergyActiveciprofloxacinCiprofloxacin UnknownDrug AllergyActive Reason For Referral No Information Medications Medication SIG (Take, Route, Frequency, Duration) Notes Start Date End Date Status Furosemide 20 MG Oral; Duration: 90 Days ActiveFluticasone Propionate 50 MCG/ACT1 spray in each nostril Nasally Once a dayActivehydrALAZINE HCl 50 MG1 tablet with food Orally BID; Duration: 90 days ActiveGlimepiride 4 MGOral; Duration: 90 DaysActiveLosartan Potassium 100 MG Oral; Duration: 90 DaysActiveJardiance 25 MGOral; Duration: 90 DaysActive Rosuvastatin Calcium 20 MGOral; Duration: 90 DaysActivePantoprazole Sodium 40 MG Oral; Duration: 30 DaysActiveAspirin Low Dose 81 MGCHEW 1 TABLET (81 MG) IN THE MORNING Oral; Duration: 90 DaysActiveTamsulosin HCl 0.4 MGOral; Duration: 90 DaysActiveAllopurinol 300 MGOral; Duration: 90 DaysActiveSucralfate 1 GMOral; Duration: 90 DaysActiveBisoprolol Fumarate 5 MGOral; Duration: 90 DaysActive Immunizations Vaccine Route Administration Date [facility] [employer] [facility] Pre -Filled 30 mcg/0.3 mL Unknown 04/28/2023 Administered Flu, Fluzone High-Dose (9747-7192) (61955) 64 yrs+Cxklkgq81/06/2023Administered Pneumococcal (Pneumovax 23)Zykbmga09/12/2023AdministeredTdap (Boostrix)Unknown 10/27/2018AdministeredZoster (Zostavax)Pqfbrmg5505/24/2016Administered Social History Tobacco Use: Social History Observation Description Date Details (start date - stop date) Former Smoker NA - NA Tobacco Control (Standard) Question Answer Notes Tobacco use: Former smoker How long has it been since you last smoked?Greater than 10 yearsAdditional Findings: Tobacco ccc-slgdUz-fbkmvcdj cigarette smoker (10-19/day) Problems Problem Type SNOMED Code ICD Code Onset Dates Problem Status W/U Status Risk Notes Problem Obesity (880640912) Obesity, unspecified (E66.9) ActiveconfirmedProblemHypersomnia (33006103)Hypersomnia (G47.10)Activeconfirmed ProblemEx-tobacco user (finding) (019018273)History of tobacco abuse (Z87.891) Activeconfirmed Plan Of Treatment No Information Insurance Providers Payer Name Payer Address Payer Phone Subscriber Number Group Number Insured Name Patient Relationship to Insured Coverage Start Date Coverage End Date MEDICARE [place] [address] [address] [place] [address] [id number] [employer] - patient is the [id number] SUPPLEMENT INSURANCE [address] [place] [id number], AlbertSelf - patient is the insured Medical (General) History Medical History History ICD Code History of tobacco abuse Z87.891 Surgical History Surgery Date(Month/Year) Cardiac Catheterization 07/27/2023 cholecystectomy EGDappendectomyrotator cuff tear pcixwx-zchvjcjyumzphkea-jyeh foottonsillectomy and adenoidectomyHospitalization History Reason Date(Month/Year) Bradycardia-[facility] 07/09/2023
--- OUTSIDE RECORDS SUMMARY | 2025-04-19 08:22 | XMS_ITS | Clinical Summary ---
Author Organization [facility] Address [address] [place] [address] Care Team Providers Care Malt House Loader Name Role Phone Tomeka Rosado MD Primary Care Provider [phone] Allergies Active AllergyReactionsCriticalityNoted XsphKuzvbsnjLfsymyoovtdaBuels39/05/2024 OkjskfyjltbojQwevn19/05/7788QaiihrnafjFaome08/05/2024 Medications MedicationSigDispense QuantityRefillsLast FilledStart DateEnd DateStatus empagliflozin [...] 10 mg tablet Indications:Coronary artery disease involving [place] coy[place] coronary artery of [place] heart without angina pectorisTake 2 tablets (20 mg) by mouth in the morning. 180 tablet Discontinued(Stop Taking at Discharge) hydrALAZINE (Apresoline) 50 mg tablet Indications:Primary hypertensionTake 1 tablet (50 mg) by mouth in the morning and at bedtime. 180 tablet Discontinued(Stop Taking at Discharge) amLODIPine (Norvasc) 10 mg tablet Take 5 mg by mouth if needed. Takes when BP is gynhahuf19/08/2025Discontinued (Stop Taking at Discharge) Active Problems ProblemNoted DateDiagnosed DateElevated psuhcynb17/07/2025 Assessment & Plan (03/21/2025 3:13 AM EDT): -Troponin 85->112->43 -Concern for ACS -Will initiate IV heparin infusion -Patient was given Plavix as well as therapeutic Lovenox at outside hospital -N.p.o. for possible cardiac cath -Most recent cardiac cath completed on 07/27/2023 showing mild CAD -Cardiology consult Atrial tachycardia, gtgxzavkgw59/07/2025 Assessment & Plan (03/21/2025 3:13 AM EDT): - Continue beta-janet Adrenal adenoma, left03/21/2025 Assessment & Plan (03/21/2025 3:13 AM EDT): -Continue outpatient follow-up with urology Fluid icvijxuh41/07/2025 Assessment & Plan (03/21/2025 3:13 AM EDT): - BNP elevated at 2610 at outside hospital -He was given 40 mg of IV Lasix with improvement in shortness of breath -Echocardiogram is pending -Strict intake and output Left ankle pdlobtsy35/28/9683Ufkevqtgmfd08/01/2025LLQ pain11/28/2024rthritis 05/31/2024History of tobacco abuse05/31/20241373Lpafpnvwjpr12/17/2024URTI (acute upper respiratory infection)11/16/2023Leukemoid sudqllfr28/ Overview (10/27/2023): Last Assessment & Plan: WBC of 19 k on labs drawn at [facility] - recheck Pneumonia of left lower lobe due to infectious hziwfyov46/ Overview (10/27/2023): Last Assessment & Plan: Left [...] that he may benefit from seeing a registered nurse cardiovascular icu for DM, adrenal mass Abnormal nuclear stress test/10/2023 Overview (08/18/2023): Last Assessment & Plan: Nuclear stress test 07/08 - perfusion defect in LAD distribution. Asymptomatic. Instructed to start using ASA. Patient scheduled for [facility] on 07/29/23 No prior hx of CAD Encounter to establish care with new xlhuzl83 Overview (08/18/2023): Last Assessment & Plan: New Patient, here to establish care. Reviewed medical, surgical and social hx. Reviewed available old records. Reviewed and updated medication list. New Patient for this practice. Was previously established with Dr Barajas but had to switch since [facility]moved [facility]. Near urpytny8907/10/2023 Assessment & Plan (08/18/2023 11:07 AM EST): Currently stable, no further episode noted Assessment & Plan (07/10/2023 5:18 PM EST): Recently admitted to [facility] for near syncope, bradycardia, abnormal stress test [...] in November. Primary malignant neuroendocrine neoplasm of cuhxhgje77 Overview (08/18/2023): Last Assessment & Plan: Limited [...] repeat CT chest planned in 09/05. Accelerated cucjdwjshuxv22llergic sakqzdtl14/12/2023 08/18/20239529Utszpw31alance sqkdlam94enign prostatic hyperplasia with lower urinary tract rhazwbkt72 Chronic wyckbfykz35iverticulosis of sigmoid colon02/24/2023 08/18/2023Esophageal aadxrgcmb22Fall Yshfrjntscuy56Left rotator cuff tear rmmzbpwecwm42/12/2023 08/18/2023Obesity (BMI 30-39.9)Other chronic pain02/24/2023 08/18/2023ain in right kneeityriasis rosea02/24/2023 08/18/2023Slow transit nmoovtzunrtj34Tubular adenoma of colon Type 2 diabetes mellitus with kidney complication, without long-term current use of pjoxzsw1202/24/2023iabetic polyneuropathy associated with type 2 diabetes sqiozlcn22Mixed ngkwkbxzxoylmu83/12/2023 08/18/2023 Assessment & Plan (03/21/2025 3:13 AM EDT): - Continue rosuvastatin Assessment & Plan (08/18/2023 11:07 AM EST): Continue crestor 20 mg daily Morbid roimekp26rimary zjunrooluyhc48 Overview (08/18/2023): Last Assessment & Plan: Too [...] without complication, without long-term current use of qwmosyb99/10/2023 Assessment & Plan (03/21/2025 3:13 AM EDT): - ISS, ACHS Neuroendocrine dqacqqhja08/10/2023 Assessment & Plan (03/21/2025 3:13 AM EDT): - Stable continue monitoring CKD stage 3a, GFR 45-59 ml/min Assessment & Plan (03/21/2025 3:13 AM EDT): - Stable, at baseline Bradycardia by electrocardiogram Assessment & Plan (08/18/2023 11:09 AM EST): Stop bisprolol- no beta blockers at this time Frequent PVCs Assessment & Plan (08/18/2023 11:07 AM EST): F/U with Dr San Encounters DateTypeDepartmentCare TarfSuxjviklfyy93/31/2025Refill [facility] [address] [place] [address] Sukhjinder Schmitz MD Elevated yappkakc87/29/2025Telephone [place] [address] [place] [address] Maria Guadalupe Coyne MA 04/05/2025Telephone [facility] [address] [place] [address] Maria Guadalupe Coyne MA 03/28/2025 1:20 PM EDTFollow-Up [facility] [address] [place] [address] Kanika Sanchez CNP Chronic systolic heart failure (CMS/HCC) (Primary Dx); NICM (nonischemic cardiomyopathy) (CMS/HCC); NSVT (nonsustained ventricular tachycardia) (CMS/HCC); PVC (premature ventricular contraction); Orthostatic hypotension; Coronary artery disease involving [place] coy[place] coronary artery of [place] heart without angina pectoris; Mixed hyperlipidemia; Benign hypertensive heart disease with heart failure (CMS/HCC)03/21/2025 6:00 PM EDT - 03/21/2025 8:00 PM EDTSurgery [facility] [address] [place] [address] Jai Subramanian MD Coronary pkblkarchzw00/07/2025 1:32 AM EDT - 03/22/2025 2:36 PM EDTHospital Encounter [facility] [address] [place] [address] Sukhjinder Schmitz MD Elevated troponin (Primary Dx); NSVT (nonsustained ventricular tachycardia) ([facility]) Discharge Disposition: Home or Self Care ()03/21/2025Travelfrom Last 3 Months Family History Medical HistoryRelationNameCommentsCancerBrother 1SamDiabetes type IIBrother 1 SamHypertensionBrother 1SamCancerBrother 2BobDiabetes type IIBrother 2BobCancer FatherSamuel PrestonDiabetes type IIFatherSamuel PrestonHypertensionFatherSamuel PrestonAnginaMotherRegina PrestonCancerMotherRegina PrestonHeart attackMother Yasmin PrestonHeart failureMotherRegina PrestonHypertensionMotherRegina Josep CancerSisterNatalieDiabetes type IISisterNatalieRelationNameStatusComments Brother 1SamBrother 2BobFatherSamuel PrestonMotherRegina PrestonSisterNatalie Social History Tobacco UseTypesPacks/DayYears UsedDateSmoking Tobacco: RkzeggKdnplvequm636.9 10/14/1967 - 09/14/1983Smokeless Tobacco: Never Tobacco Cessation:Counseling Given: Not Answered Alcohol UseStandard Drinks/WeekCommentsNot Currently0 (1 standard drink = 0.6 oz pure alcohol)I rarely drink.[facility] UtilitiesAnswerDate RecordedIn the past 12 months has the [employer], gas, oil, or water [employer]ie Society threatened to shut off services in your [...] EnvironmentAnswerDate RecordedFear of Current or Ex-PartnerNot on file08/06/2023Emotionally AbusedNot on file08/06/2023 Physically AbusedNot on file08/06/2023Sexually AbusedNot on file08/06/2023 Physically or Sexually AbusedNot on 08/06/2023TransportationAnswerDate RecordedIn the past 12 months, has [...] homeless or living in a custodial (including now)?No03/21/2025 Hunger Vital SignAnswerDate RecordedWithin the past 12 months, you worried that your food would run out before you got the money to buymore.Never true03/21/2025 Ran Out of Food in the Last YearNot on file03/21/2025Sex and Gender Information ValueDate RecordedSex Assigned at CfhomIlzq35/13/2024 6:49 AM ESTLegal SexMale 12/12/2021 12:14 AM EDTGender GgzwlsttJlzu59/13/2024 6:49 AM ESTSexual OrientationHeterosexual or Ocxshxsi00/13/2024 6:49 AM EST Last Filed Vital Signs Vital SignReadingTime TakenCommentsBlood Yrjgybut580/7310 1:17 PM EDT Qlate2949/ 1:17 PM RHEYffjiqwifek44.5 ??C (97.7 ??F)03/22/2025 8:00 AM EDTRespiratory Jnvc4692 8:00 AM EDTOxygen Kvedzykknd85%03/28/2025 1:17 PM EDTInhaled Oxygen Concentration--Lbhooa795 kg (231 lb)03/28/2025 1:17 PM EDT Fumjde109.8 cm (5' 10 )03/28/2025 1:17 PM EDTBody Mass Index33.151 1:17 PM EDT Plan of Treatment DateTypeDepartmentCare Team (Latest Contact Info)Fmhvcpmdjfi41/25/2025 11:15 AM ESTOffice Visit [facility] [address] [place] [address] Noe San MD [address] [place] [address] Health MaintenanceDue DateLast DoneCommentsMedicare Annual Wellness (AWV) 1950Diabetes: Retinopathy Rilzbvesw51/09/1959Depression Screening 1961Zoster Vaccines (1 of 2), 05/15/2016Diabetes: Hemoglobin A1C/OVID-19 Vaccine ( season) /, 10/15/2021, 03/25/2021, Additional history existsInfluenza Vaccine (#1)/, 03/20/2023, 03/27/2022, Additional history existsFall Risk Tsivhcuzq06/dult Teyyewn64, 10/27/2018, 03/14/20113024OqjoudoggmbTiwjjwypuhps44/16/2021olorectal Cancer ScreeningDiscontinuedPneumococcal Vaccine: 50+ MhrnrGispmiwsc73/12/2023, 11/22/2018, 05/21/2018, Additional history existsCT ColonographyDiscontinued FIT-DNADiscontinuedFITDiscontinuedFOBTDiscontinuedHIB [...] Procedures Procedure NamePriorityDate/TimeAssociated DiagnosisCommentsPOCT GLUCOSE METER UNSOLICITED TLMVRHHTxbfpsk81/08/2025 11:00 AM EDT POCT GLUCOSE METER UNSOLICITED EXFVEUKZjtskum28/08/2025 7:31 AM EDT LIPID PANELAdd-On03/22/2025 4:26 AM EDT PHOSPHORUSPending Cmnrvysca11/08/2025 4:26 AM EDT MAGNESIUMPending Vjobffovg45/08/2025 4:26 AM EDT CBCPending Pttfkglht16/08/2025 4:26 AM EDT BASIC METABOLIC PANELPending Vaciafnki48/08/2025 4:26 AM EDT POCT GLUCOSE METER UNSOLICITED PULPPPLLdhpfhm12/07/2025 8:33 PM EDT POCT GLUCOSE METER UNSOLICITED PBOQYWBSrpbbxr38/07/2025 4:41 PM EDT HIGH SENSITIVITY TROPONIN JFmzhmmr32/07/2025 2:41 PM EDT RIGHT HEART YNAAUrscqgs40/07/2025 11:29 AM EDT Elevated troponin CORONARY EHJMROWGVUWRkbpkbn74/07/2025 11:29 AM EDT Elevated troponin XR CHEST 1 DQMCICWK67/07/2025 9:26 AM EDT COMPLETE ECHO (TTE) W/ IMAGING ZCGEZCdgumpb46/07/2025 9:10 AM EDT POCT GLUCOSE METER UNSOLICITED UJINKXUUsgkoja30/07/2025 7:25 AM EDT ECG 12-DBEJQLOV20/07/2025 5:02 AM EDT HIGH SENSITIVITY TROPONIN SYxuel8803/21/2025 3:45 AM EDT XVREeujdtk25/07/2025 3:45 AM EDT BASIC METABOLIC OFZKLAxprati22/07/2025 3:45 AM EDT ANTI-FACTOR XAAdd-On03/21/2025 2:09 AM EDT APTTSTAT Add-on03/21/2025 2:09 AM EDT B-TYPE NATRIURETIC ARTOFZIUMSZ48/07/2025 2:09 AM EDT CBC WITH AUTO ASCTNZCQNMNCGPJL77/07/2025 2:09 AM EDT CBC AND GTRGZVZTAUTBYQHG94/07/2025 2:09 AM EDT PROTIME-BZHHNUA2203/21/2025 2:09 AM EDT HIGH SENSITIVITY TROPONIN ISTAT1 2:09 AM EDT OUUGAOSPFQUSXK47/07/2025 2:09 AM EDT EWRPRJBFHAGDZ90/07/2025 2:09 AM EDT COMPREHENSIVE METABOLIC ERKXMGLJQ43/07/2025 2:09 AM EDT from Last 3 Months Results * (ABNORMAL) POCT glucose meter (03/22/2025 11:00 AM EDT) Only the most recent of5 resultswithin the time period is included. ComponentValueRef RangeTest MethodAnalysis TimePerformed AtPathologist Signature Glucose IHP628(H)70 - 105 mg/dL03/22/2025 11:11 AM [facility] ([facility]) Comment:jarizmeSpecimen (Source)Anatomical Location / LateralityCollection Method / VolumeCollection TimeReceived TimeBloodCapillary blood specimen / Lkkctwv5403/22/2025 11:00 AM EDT1 11:11 AM EDT Narrative [facility] ([facility]) - 03/22/2025 11:11 AM EDT Waived Testing in the ED is performed under the ED CLIA certificate #[id number]. Authorizing ProviderResult TypeResult StatusOmar Nadir BARBER BLOOD ORDERABLES Final ResultPerforming OrganizationAddressCity/State/ZIP CodePhone Number [facility] ([facility]) [address] [place] [address] * (ABNORMAL) CBC (03/22/2025 4:26 AM EDT) Only the most recent of2 resultswithin the time period is included. ComponentValueRef RangeTest MethodAnalysis TimePerformed AtPathologist Signature Auto WBC9.484.00 - 10.60 10*3/uL03/22/2025 5:15 AM [facility] ([facility]) RBC4.854.20 - 5.70 10*6/uL03/22/2025 5:15 AM [facility] ([facility]) Cvhhpfxwxq40.913.0 - 17.0 g/dL03/22/2025 5:15 AM [facility] ([facility]) Kohuecsglw11.839.0 - 50.0 %03/22/2025 5:15 AM [facility] ([facility])MCV 88.282.0 - 98.0 fL03/22/2025 5:15 AM [facility] ([facility])MCH28.727.0 - 33.0 pg03/22/2025 5:15 AM [facility] ([facility])MCHC32.532.0 - 35.0 g/dL 03/22/2025 5:15 AM [facility] ([facility])RDW15.9(H)11.5 - 15.0 % 03/22/2025 5:15 AM [facility] ([facility])Ughwqkhkf513378 - 400 10*3/uL 03/22/2025 5:15 AM [facility] ([facility])Specimen (Source)Anatomical Location / LateralityCollection Method / VolumeCollection TimeReceived TimeBlood Venous blood specimen / UnknownVenipuncture / Hyzqvkb7503/22/2025 4:26 AM EDT 03/22/2025 4:57 AM EDT Narrative Authorizing ProviderResult TypeResult StatusOmarogelio BARBER BLOOD ORDERABLES Final ResultPerforming OrganizationAddressCity/State/ZIP CodePhone Number [facility]) [address] [place] [address] * Phosphorus (03/22/2025 4:26 AM EDT) Only the most recent of2 resultswithin the time period is included. ComponentValueRef RangeTest MethodAnalysis TimePerformed AtPathologist Signature Phosphorus3.72.5 - 5.0 mg/dL03/22/2025 5:25 AM [facility] ([facility]) Specimen (Source)Anatomical Location / LateralityCollection Method / Volume Collection TimeReceived TimeBloodVenous blood specimen / UnknownVenipuncture / Uaxiqfb9503/22/2025 4:26 AM EDT1 4:57 AM EDT Narrative Authorizing ProviderResult TypeResult StatusSukhjinder BARBER BLOOD ORDERABLES Final ResultPerforming OrganizationAddressCity/State/ZIP CodePhone Number [facility]) [address] [place] [address] * Magnesium (03/22/2025 4:26 AM EDT) Only the most recent of2 resultswithin the time period is included. ComponentValueRef RangeTest MethodAnalysis TimePerformed AtPathologist Signature Magnesium2.01.9 - 2.7 mg/dL03/22/2025 5:25 AM [facility] ([facility]) Specimen (Source)Anatomical Location / LateralityCollection Method / Volume Collection TimeReceived TimeBloodVenous blood specimen / UnknownVenipuncture / Ejhayhx5703/22/2025 4:26 AM EDT1 4:57 AM EDT Narrative Authorizing ProviderResult TypeResult StatusOmar Nadir BARBER BLOOD ORDERABLES Final ResultPerforming OrganizationAddressCity/State/ZIP CodePhone Number [facility] ([facility]) [address] [place] [address] * (ABNORMAL) Lipid panel (03/22/2025 4:26 AM EDT)ComponentValueRef RangeTest MethodAnalysis TimePerformed AtPathologist TqbvhxhdbEsgukxdeorqcm907(H)<150 mg/dL03/22/2025 7:59 AM [facility] ([facility])Comment: TRIGLYCERIDE REFERENCE RANGE: 20 YEARS AND OLDER ?CARDIOVASCULAR RISK LESS THAN 150 mg/dL ? LOW RISK 150 TO 199 mg/dL ?BORDERLINE RISK 200 mg/dL AND GREATER ? HIGH RISK Cppxjhtpvxw78(L)120 - 200 mg/dL03/22/2025 7:59 AM [facility] ([facility]) LDL Hmhgsufyxb657 - 160 mg/dL03/22/2025 7:59 AM [facility] ([facility])HDL 21(L)23 - 92 mg/dL03/22/2025 7:59 AM [facility] ([facility])Non HDL Cefegkdukpt8219/08/2025 7:59 AM [facility] ([facility])Total VLDL-C330 - 40 mg/dL03/22/2025 7:59 AM [facility] ([facility])Cholesterol/HDL Ratio4.6 mg/dL03/22/2025 7:59 AM [facility] ([facility])Specimen (Source)Anatomical Location / LateralityCollection Method / VolumeCollection TimeReceived TimeBlood Venous blood specimen / UnknownVenipuncture / Bfgdsdl1903/22/2025 4:26 AM EDT 03/22/2025 4:57 AM EDT Narrative Authorizing ProviderResult TypeResult StatusOmar Nadir BARBER BLOOD ORDERABLES Final ResultPerforming OrganizationAddressCity/State/ZIP CodePhone Number [facility]) [address] [place] [address] * (ABNORMAL) Basic metabolic panel (03/22/2025 4:26 AM EDT) Only the most recent of2 resultswithin the time period is included. ComponentValueRef RangeTest MethodAnalysis TimePerformed AtPathologist Signature Elxawu691800 - 145 mmol/L1 5:25 AM [facility] ([facility]) Potassium4.23.5 - 5.1 mmol/L1 5:25 AM [facility] ([facility]) Pixdruye77063 - 107 mmol/L1 5:25 AM [facility] ([facility])CO223 21 - 31 mmol/L1 5:25 AM [facility] ([facility])BUN30(H)7 - 25 mg/dL03/22/2025 5:25 AM [facility] ([facility])Creatinine1.34(H)0.70 - 1.30 mg/dL03/22/2025 5:25 AM [facility] ([facility])Jebdvsa625(H)70 - 100 mg/dL03/22/2025 5:25 AM [facility] ([facility])Calcium9.18.6 - 10.3 mg/dL 03/22/2025 5:25 AM [facility] ([facility])Anion Wdv224 - 20 mmol/L 03/22/2025 5:25 AM [facility] ([facility])eGFR55.2(L)>60.0 mL/min/1.73m*2 03/22/2025 5:25 AM [facility] ([facility])Comment:[facility]???s estimated glomerular filtration rate (eGFR) will [...] group of individuals. BUN/Creatinine Ratio22. 5:25 AM [facility])Specimen (Source)Anatomical Location / LateralityCollection Method / VolumeCollection TimeReceived TimeBloodVenous blood specimen / UnknownVenipuncture / Unknown 03/22/2025 4:26 AM EDT1 4:57 AM EDT Narrative Authorizing ProviderResult TypeResult StatusSukhjinder BARBER BLOOD ORDERABLES Final ResultPerforming OrganizationAddressCity/State/ZIP CodePhone Number [facility]) [address] [place] [address] * (ABNORMAL) High Sensitivity Troponin I (03/21/2025 2:41 PM EDT) Only the most recent of3 resultswithin the time period is included. ComponentValueRef RangeTest MethodAnalysis TimePerformed AtPathologist Signature High Sensitivity Troponin I28(H)<20 ng/L1 3:55 PM [facility])Specimen (Source)Anatomical Location / LateralityCollection Method / VolumeCollection TimeReceived TimeBloodVenous blood specimen / Unknown Venipuncture / Vhwxhze3103/21/2025 2:41 PM EDT1 3:21 PM EDT Narrative Authorizing ProviderResult TypeResult StatusOmarogelio BARBER BLOOD ORDERABLES Final ResultPerforming OrganizationAddressCity/State/ZIP CodePhone Number [facility]) [address] [place] [address] * CORONARY ANGIOGRAPHY, RIGHT HEART CATH (03/21/2025 [...] informed consent. ??he was brought to the clinical lab technologist in a fasting state. The right neck area was prepped and draped in usual fashion. Micropuncture technique was used for access under ultrasound guidance into the right internal jugular vein. ??A 6-Chadian x 11 cm sheath was placed. ?? The right wrist area was prepped and draped in usual fashion. Micropuncture technique was used for access in the radial artery. ??A 6-Chadian x 11 cm sheath was placed. ??Verapamil was given through the sheath, and heparin was administered intravenously. ?? A 5-Chadian Ponce catheter was used for right heart catheterization and measurement of pressures and calculation of cardiac output using the estimated Pretty method. ??Ponce catheter was removed. Bilateral selective coronary angiography was then performed using 6-Chadian JL3.5 diagnostic catheter for engagement of the left coronary artery and 6-Chadian JR5 diagnostic catheter for engagement of the [...] Other chest pain [R07.89] Authorizing ProviderResult TypeResult StatusGeroque Subramanian [facility] CARDIAC CATH PROCEDURESFinal Result * XR chest [...] Narrative 03/21/2025 12:08 PM EDT 1 1 [facility] [address] [place] [address] [phone] (fax) Echocardiogram-[facility] Name: BRENT CAR Study Date: 03/21/2025 08:32 AM B/P: 121 mmHg/55 mmHg HR: 75 bpm Date of : 1950 Location: [facility] Height: 70 in. Age: 74 year(s) [...] No pericardial effusion. Procedure Staff Reading Group: [facility] Referring Physician: TOMEKA ROSADO Machinery Mechanic: MARK Castro ??Ordering Physician: SKYLAR MEJIA Wall Motion Scores -1 - hyperkinesia, 0 - not evaluated, 1 - normal, 2 - hypokinesia, 3 - akinesia, 4 - dyskinesia Procedure Note Megan Harrington MD - 03/21/2025 1 1 [facility] [address] [place] [address] [phone] (fax) Echocardiogram-[facility] Name: BRENT CAR Study Date: 03/21/2025 08:32 AM B/P: 121 mmHg/55 mmHg HR: 75 bpm Date of : 1950 Location: [facility] Height: 70 in. Age: 74 year(s) [...] No pericardial effusion. Procedure Staff Reading Group: [facility] Referring Physician: TOMEKA ROSADO Machinery Mechanic: MARK Castro Ordering Physician: SKYLAR MEJIA Wall Motion Scores -1 - hyperkinesia, 0 - not evaluated, 1 - normal, 2 - hypokinesia, 3 - akinesia, 4 - dyskinesia Authorizing ProviderResult TypeResult Raf Mejia CNPCV ECHO PROCEDURES Final Result * ECG 12 lead (03/21/2025 5:02 AM EDT)ComponentValueRef RangeTest MethodAnalysis TimePerformed AtPathologist SignatureVentricular Nypm55YIRMF MUSEAtrial Rate 74BPMGE MUSEPR Vktmjkaf721mxLU MUSEQRS MOQCAJLA031wgCL MUSEQT Rdkogzvi922shIW MUSEQTC CALCULATION(BAZETT)552msGE MUSEP Pwny32euorczfET MUSER-Pncy135ksvaixs GE MUSET Wave Eola-12degreesGE MUSESpecimen (Source)Anatomical Location / LateralityCollection Method / [...] on 03/22/2025 10:43:39 AM Authorizing ProviderResult TypeResult Raf Mejia CNPECG ORDERABLESFinal ResultPerforming OrganizationAddressCity/State/ZIP CodePhone Number [facility] * (ABNORMAL) CBC auto differential (03/21/2025 2:09 AM EDT)ComponentValueRef RangeTest MethodAnalysis TimePerformed AtPathologist SignatureAuto WBC11.08(H) 4.00 - 10.60 10*3/uL03/21/2025 2:34 AM [facility] ([facility])RBC5.20 4.20 - 5.70 10*6/uL03/21/2025 2:34 AM [facility] ([facility])Hemoglobin 14.913.0 - 17.0 g/dL03/21/2025 2:34 AM [facility] ([facility])Hematocrit 45.839.0 - 50.0 %03/21/2025 2:34 AM [facility] ([facility])MCV88.182.0 - 98.0 fL03/21/2025 2:34 AM [facility] ([facility])MCH28.727.0 - 33.0 pg 03/21/2025 2:34 AM [facility] ([facility])MCHC32.532.0 - 35.0 g/dL 03/21/2025 2:34 AM [facility] ([facility])RDW15.9(H)11.5 - 15.0 % 03/21/2025 2:34 AM [facility] ([facility])Neutrophils %72.8(H)40.0 - 72.0 %03/21/2025 2:34 AM [facility] ([facility])Lymphocytes %16.7(L)20.0 - 45.0 %03/21/2025 2:34 AM [facility] ([facility])Monocytes %8.65.0 - 12.0 %03/21/2025 2:34 AM [facility] ([facility])Eosinophils %1.10.0 - 6.0 %03/21/2025 2:34 AM [facility] ([facility])Basophils %0.40.0 - 1.0 % 03/21/2025 2:34 AM [facility] ([facility])Neutrophils Absolute8.08(H) 1.60 - 7.60 10*3/uL03/21/2025 2:34 AM [facility] ([facility])Lymphocytes Absolute1.851.20 - 4.00 10*3/uL03/21/2025 2:34 AM [facility] ([facility])Monocytes Absolute0.950.10 - 1.00 10*3/uL03/21/2025 2:34 AM [facility] ([facility])Eosinophils Absolute0.120.00 - 0.50 10*3/uL03/21/2025 2:34 AM [facility] ([facility])Basophils Absolute0.040.00 - 0.20 10*3/uL 03/21/2025 2:34 AM [facility] ([facility])Bfyrfequk403(H)150 - 400 10*3/uL03/21/2025 2:34 AM [facility] ([facility])nRBC %0.00 %03/21/2025 2:34 AM [facility] ([facility])Immature Granulocytes %0.40.0 - 1.0 % 03/21/2025 2:34 AM [facility] ([facility])Immature Granulocytes Absolute 0.040.00 - 0.20 10*3/uL03/21/2025 2:34 AM [facility] ([facility]) Specimen (Source)Anatomical Location / LateralityCollection Method / Volume Collection TimeReceived TimeBloodVenous blood specimen / UnknownVenipuncture / Vlwfays1903/21/2025 2:09 AM EDT1 2:20 AM EDT Narrative Authorizing ProviderResult TypeResult StatusMeKaiser Hayward BLOOD ORDERABLES Final ResultPerforming OrganizationAddressCity/State/ZIP CodePhone Number [facility] ([facility]) [address] [place] [address] * aPTT - baseline (03/21/2025 2:09 AM EDT)ComponentValueRef RangeTest Method Analysis TimePerformed AtPathologist TshjexhrliJSO76.425.0 - 35.0 Seconds 03/21/2025 3:09 AM [facility])Comment:Clinical significance of the APTT is questionable in the presence of heparin.Specimen (Source) Anatomical Location / LateralityCollection Method / VolumeCollection Time Received TimeBloodVenous blood specimen / UnknownVenipuncture / Unknown 03/21/2025 2:09 AM EDT1 2:15 AM EDT Narrative Authorizing ProviderResult TypeResult StatusMequirino Mejia CNPLAB BLOOD ORDERABLES Final ResultPerforming OrganizationAddressCity/State/ZIP CodePhone Number [facility] [place]) [address] [place] [address] * Protime-INR (03/21/2025 2:09 AM EDT)ComponentValueRef RangeTest MethodAnalysis TimePerformed AtPathologist NaxdqqzhhHpsdtyp36.412.3 - 14.8 Pfychbg2003/21/2025 2:42 AM [facility] ([facility])INR1.020.90 - 1.1010 2:42 AM EDT [facility] ([facility])Comment: [facility] FOR WARFARIN THERAPY CONDITION ?INR [...] TimeReceived TimeBloodVenous blood specimen / UnknownVenipuncture / Cvhsvmb3503/21/2025 2:09 AM EDT1 2:15 AM EDT Narrative Authorizing ProviderResult TypeResult StatusSkylar Mejia [facility] BLOOD ORDERABLES Final ResultPerforming OrganizationAddressCity/State/ZIP CodePhone Number [facility] ([facility]) [address] [place] [phone] * Anti-Xa (Heparin Level) (03/21/2025 2:09 AM EDT)ComponentValueRef RangeTest MethodAnalysis TimePerformed AtPathologist SignatureAnti-Xa (Heparin)0.450.3 - 0.7 IU/mL03/21/2025 3:10 AM [facility] ([facility])Comment:Rivaroxaban and Apixaban will interfere with the anti Xa assay used to monitor UFH and LMWH.Specimen (Source)Anatomical Location / LateralityCollection Method / VolumeCollection TimeReceived TimeBloodVenous blood specimen / Unknown Venipuncture / Kvecuph2503/21/2025 2:09 AM EDT1 2:15 AM EDT Narrative Authorizing ProviderResult TypeResult StatusSkylar AlcarazSanta Barbara Cottage HospitalLAB BLOOD ORDERABLES Final ResultPerforming OrganizationAddressCity/State/ZIP CodePhone Number [facility]) [address] [place] [phone] * (ABNORMAL) B-type natriuretic peptide (03/21/2025 2:09 AM EDT)ComponentValue Ref RangeTest MethodAnalysis TimePerformed AtPathologist FfzthscwsWRD521(H)0 - 100 pg/mL03/21/2025 2:50 AM [facility] ([facility])Specimen (Source) Anatomical Location / LateralityCollection Method / VolumeCollection Time Received TimeBloodVenous blood specimen / UnknownVenipuncture / Unknown 03/21/2025 2:09 AM EDT1 2:20 AM EDT Narrative Authorizing ProviderResult TypeResult Statussharona Pirkl CNPLAB BLOOD ORDERABLES Final ResultPerforming OrganizationAddressCity/State/ZIP CodePhone Number [facility] ([facility]) [address] [facility] [place] [address] * (ABNORMAL) Comprehensive metabolic panel (03/21/2025 2:09 AM EDT)Component ValueRef RangeTest MethodAnalysis TimePerformed AtPathologist SignatureSodium 822072 - 145 mmol/L1 2:46 AM [facility] ([facility])Potassium 4.23.5 - 5.1 mmol/L1 2:46 AM [facility] ([facility])Lacmoith351 98 - 107 mmol/L1 2:46 AM [facility] ([facility])YR75755 - 31 mmol/L1 2:46 AM [facility] ([facility])Anion Vqm251 - 20 mmol/L 03/21/2025 2:46 AM [facility] ([facility])BUN31(H)7 - 25 mg/dL03/21/2025 2:46 AM [facility] ([facility])Creatinine1.33(H)0.70 - 1.30 mg/dL 03/21/2025 2:46 AM [facility] ([facility])BUN/Creatinine Ratio23.3 03/21/2025 2:46 AM [facility] ([facility])Istakxi384(H)70 - 100 mg/dL 03/21/2025 2:46 AM [facility] ([facility])Calcium9.48.6 - 10.3 mg/dL 03/21/2025 2:46 AM [facility] ([facility])FCV4035 - 39 U/L1 2:46 AM [facility] ([facility])ALT (SGPT)97 - 52 U/L1 2:46 AM [facility] ([facility])Alkaline Bvxlchwipaz27660 - 104 U/L1 2:46 AM [facility] ([facility])Total Protein7.06.0 - 8.3 g/dL03/21/2025 2:46 AM [facility] ([facility])Albumin4.33.5 - 5.7 g/dL03/21/2025 2:46 AM [facility] ([facility])Total Bilirubin0.60.3 - 1.0 mg/dL03/21/2025 2:46 AM [facility] ([facility])eGFR55.7(L)>60.0 mL/min/1.73m* 2:46 AM [facility] ([facility])Comment:[facility]???s estimated glomerular filtration rate (eGFR) will [...] TimeBloodVenous blood specimen / Unknown Venipuncture / Rliuxvw8803/21/2025 2:09 AM EDT1 2:20 AM EDT Narrative Authorizing ProviderResult TypeResult StatusMesharona [facility] BLOOD ORDERABLES Final ResultPerforming OrganizationAddressCity/State/ZIP CodePhone Number [facility] ([facility]) [address] [place] [address] from Last 3 Months Insurance Advance Directives * Full Code (Latest Code Status on File) Date ActivatedDate NpuwpsekwqmCtecsmhg01/7/2025 2:57 AM03/22/2025 4:36 PM Care Teams Team MemberRelationshipSpecialtyStart DateEnd Date Tomeka Rosado MD [address] [place] [address] PCP - GeneralNurse Practitioner11/22/24
--- OUTSIDE RECORDS SUMMARY | 2025-04-19 08:22 | XMS_ITS | Clinical Summary ---
Author Organization [facility] Healthcare Address [address] [place] [address] Care Team Providers Care Ditcher Operator Name Role Phone Peggy Gatica NP Unavailable [phone] Gerald Low MD Primary Care Provider [phone] Allergies Active AllergyReactionsCriticalityNoted DateCommentsAzithromycinUnknown 03/24/20186371Hvyluldurlnsy17/12/2023 Other Reaction(s): ?change in mental status ErythromycinGI intolerance,Other04/28/20232907BliecbcjjsBvkwx46/12/2023 Medications MedicationSigDispense QuantityRefillsLast FilledStart DateEnd DateStatus fluticasone [...] 25 MG Indications:Stage 3a chronic kidney disease ([facility]),Type 2 diabetes mellitus with stage 3a chronic kidney disease, without long-term current use of insulin ([facility])Take 1 tablet (25 mg) by mouth [...] arthropathy,Arthritis of left shoulder2 mLIJ Once PRN Lvjcutcad27Ended methylPREDNISolone acetate (DEPO-Medrol) injection 40 mg Indications:Left rotator cuff tear arthropathy,Arthritis of left jzufybre83 mgIX Once PRN Mysngijlk07Ended Active Problems ProblemNoted DateDiagnosed DateEncounter for subsequent annual wellness visit (AWV) in Medicare txpipmn2201/09/2025 Assessment & Plan (01/09/2025 6:20 AM EDT): Reviewed Ht/Wt/BMI Recommend eye exam yearly Recommend dental exams twice a year Balance work/leisure activities Exercises is recommended most days of the week (appropriate as chronic conditions allow) Follow up yearly and prn Left ankle /28/4999Xcdnlrydpba81/01/2025 Assessment & Plan (01/09/2025 6:13 AM EDT): Noted at last office visit, was sent to [facility] ER via squad Bisoprolol dose was lowered from 10mg daily to 5mg daily Assessment & Plan (12/13/2024 3:10 PM EDT): No current sxs , at HR that he has, we discussed that despite asymptomatic we will send to dmotmtfi417 Squad comes to picking supervisor pt, report given Sent with last office [...] w micro and urine culture Suspect diverticulitis Lpfykcadaejgit42/16/2025 Assessment & Plan (12/13/2024 3:08 PM EDT): [...] juices, and sugary drinks. Screening for prostate xiqczf8210/10/2024History of tobacco abuse05/31/2024 Nmzapcglfme96/17/2024Frequent PVCs10/12/2023 Overview (10/12/2023): Last Assessment & Plan: F/U with Dr San Leukemoid /29/2024 Assessment & Plan (10/12/2023 11:08 AM EDT): WBC of 19 k on labs drawn at [facility] - recheck Left adrenal mass08/11/2023 Assessment [...] to start using ASA. Patient scheduled for [facility] on 07/29/23 No prior hx of CAD Stage 3a chronic kidney coxxypj6407/15/2023 Assessment & Plan (01/09/2025 6:14 AM EDT): [...] & Plan: Frequent PVCs, bigemeny, NSVT Near idepvyk9707/10/2023 Overview (07/15/2023): Last Assessment & Plan: Recently admitted to [facility] for near syncope, bradycardia, abnormal stress [...] Plan (07/15/2023 2:41 PM EST): Scheduled for [facility] in July. Patient is currently [...] in sxs Primary malignant neuroendocrine neoplasm of ecqhxsmv96/14/2023 Assessment & Plan (10/10/2024 6:16 AM EDT): [...] - repeat CT chest planned in 09/05. Jhqlqj1502/24/2023bsolute aewkwe6502/24/2023llergic sstssakp50/12/2023Balance svjqfeu26/12/2023Benign prostatic hyperplasia with lower urinary tract symptoms 02/24/2023 Assessment & Plan (10/10/2024 9:23 AM EDT): Currently taking tamsulosin Follows with urology Chronic flgmeoxek10/12/2023Type 2 diabetes mellitus with kidney complication, without long-term current use of uqahydg0302/24/2023 Assessment & Plan (01/09/2025 6:14 AM EDT): [...] questions or concerns related to new medications. Lofdaqludsrc66/12/2023Diverticulosis of sigmoid colon02/24/2023 Assessment & Plan (11/28/2024 2:31 PM EDT): Augmentin BID for 10 days Check labs and xray Fu in 2 weeks Advised of s/s of need for ER Esophageal /12/2023astroesophageal reflux ygvwlrf3602/24/2023 Assessment & Plan (10/10/2024 6:15 AM EDT): Recommendations: freq small meals, nothing to eat or drink at least 2 hours prior to bed, limit caffeine, alcohol, as well as spicy foods Meds to limit or avoid if possible: NSAIDS Elevate HOB if possible Current med: omeprazole Assessment & Plan (07/15/2023 2:45 PM EST): On omeprazole. C/w same. Fall02/24/2023Left rotator cuff tear xgdvfvotntg50/12/2023 Assessment & Plan (04/12/2024 10:55 AM EDT): [address] [place] [address] ortho told him he needed revision. Declined. 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 On Losartan, Bisoprolol. C/w same. Mixed yjgnuvzzexwbty13/12/2023 Assessment & Plan (01/09/2025 6:19 AM EDT): [...] Check Lipid Panel Continue current regimen. Neuroendocrine eifcpbeyl39/16/2021 Assessment & Plan (01/09/2025 6:19 AM EDT): Continue recommended monitoring of this Arthritis Resolved Problems ProblemNoted DateDiagnosed DateResolved DateURTI (acute upper respiratory infection)/06/2024Pneumonia of left lower lobe due to infectious hllkkrar12/29/ Assessment & Plan (10/12/2023 11:06 AM EDT): Left lower lobe infiltrate on CXR, mild resp symptoms including cough. He presented to ED for fever. Will start patient on Doxycycline and treat for bacterial PNA. Encounter to establish care with new xtxilp99 Assessment & Plan (07/15/2023 2:48 PM EST): New Patient, here to establish care. Reviewed medical, surgical and social hx. Reviewed available old records. Reviewed and updated medication list. New Patient for this practice. Was previously established with Dr Barajas but [facility] Accelerated kjjmvbldtzuz31Morbid undxtrf97 Type 2 diabetes mellitus in patient with Encounters DateTypeDepartmentCare TkgtEvvfmdjlbbz28/31/2025 2:00 PM EDTOffice Visit [facility] [address] [place] [address] Jonathan Cowan DPM DJD (degenerative joint disease), ankle and foot, left (Primary Dx); Other specified disorders of synovium, left ankle and foot04/14/2025amboo flowsheet [facility] [address] [place] [address] Jonathan Cowan DPM 04/08/20257276Gudres21/17/2025 1:50 PM EDTAncillary Procedure [facility] [address] [place] [address] 03/31/2025 1:40 PM EDTOffice Visit [facility] [address] [place] [address] Jonathan Cowan DPM DJD (degenerative joint disease), ankle and foot, left (Primary Dx); Other specified disorders of synovium, left ankle and foot5Bamboo flowsheet [facility] [address] [place] [address] Jonathan Cowan DPM 03/29/2025 9:30 AM EDTOffice Visit [facility] [address] [facility] [address] Fahad Sears PA Acute pain of left shoulder (Primary Dx); Left rotator cuff tear arthropathy; Arthritis of left bwlhygqy88/15/2025[employer] flowsheet [facility] [address] [place] [address] Fahad Sears PA 03/29/20259407Lxaeux12/10/3235Rimkwj42/08/2025Travelfrom Last 3 Months Immunizations ImmunizationAdministration DatesNext DueInfluenza, High Dose Seasonal, Preservative Free03/09/2019,04/09/2018,05/18/2017Influenza, High-dose Seasonal, Quadrivalent, Preservative Free03/20/2023,03/27/2022,03/01/2021,02/24/2020 Influenza, seasonal, injectable, preservative free03/13/2016,03/28/2015 Influenza, trivalent, wdobisrsxr08/22/2024Novel mfncjlwzb-J1P0-56, preservative-free08/06/2009Pneumococcal Conjugate PCV 1306,05/21/2018 Pneumococcal Polysaccharide TYXW3191/05/2023,05/12/2006RSV, recombinant, protein subunit RSVpreF, adjuvant reconstitu, 120mcg/0.5mL, PF (Arexvy)05/24/2024TD (adult), 2 Lf tetanus toxoid, preservative free, fipespir34/15/2019Tdap 10/27/2018,03/14/2011Zoster, live05/24/2016,05/15/2016 Family History Medical HistoryRelationNameCommentsCancerBrotherSamMeniere's diseaseBrotherSam multinodular goiterBrotherSamDiabetesFatherSamHearing lossFatherSamHeart disease FatherSamHypertensionFatherSamHeart diseaseMotherReginaHeart failureMotherRegina Breast misocwKpwljjPopkrwsnJzkZutDgeqotgkQqsiBexxxqQmtwckjgEswsxlvNdtu2SwqolzQsl DeceasedMotherReginaDeceasedSisterSonBobAlivex2 Social History Tobacco UseTypesPacks/DayYears UsedDateSmoking Tobacco: BmadoyNmgmkfwcne3802465 - 1983Passive Smoke Exposure: NeverSmokeless Tobacco: Never Tobacco Cessation:Counseling Given: Yes Alcohol UseStandard Drinks/WeekCommentsYes0 (1 standard drink = 0.6 oz pure alcohol)JRLBCIJRROWH8782 Health LiteracyAnswerDate RecordedHow often do you need to have someone help you when you read instructions, pamphlets, or other written material from your doctor or pharmacy?Oqukbi3207/06/2024Humiliation, Afraid, Rape, and Kick questionnaireAnswerDate RecordedWithin the [...] relatives?Once a week07/06/2024How often do you attend oriental orthodox or zoroastrian services?Patient utgrqnkh83/22/2025Do you belong to any clubs or organizations such as oriental orthodox groups, unions, fraternal or athletic groups, or school groups?No07/06/2024How often do you attend meetings of the clubs or organizations you belong to?Never07/06/2024re you , , , , never , or living with a partner?Dazjivy80/22/2025AUDIT-CAnswerDate RecordedQ1: How often do you have a [...] hard at all07/06/2024PHQ-2AnswerDate RecordedPatient Health Questionnaire-2 Score0 01/09/2025[place] [employer] of Occupational Health - Occupational Stress QuestionnaireAnswerDate RecordedDo you feel stress - tense, restless, nervous, or anxious, or unable to sleep at night because yourmind is troubled all the time - these days?Only a unymjd6807/06/2024Exercise Vital SignAnswerDate Recorded On average, how many [...] were you homeless or living in a [place] (including now)?No07/06/2024Sex and Gender InformationValueDate RecordedSex Assigned at BirthNot on fileLegal PogYpcu7808/27/2022 7:35 PM EDTGender Identity Male08/27/2022 7:35 PM EDTSexual OrientationNot on file Last Filed Vital Signs Vital SignReadingTime TakenCommentsBlood Mzqtwhif480/8007 8:33 AM EDT Jetaz4977 8:33 AM IAHQkfeifhjxxa98.9 ??C (98.5 ??F)01/09/2025 8:33 AM EDTRespiratory Bkil1598 1:56 PM EDTOxygen Birqmfexrc18%01/09/2025 8:33 AM EDTInhaled Oxygen Concentration--Xdvyjq141 kg (225 lb)04/14/2025 1:56 PM EDT Jzirry381.8 cm (5' 10 )04/14/2025 1:56 PM EDTBody Mass Index32.281 1:56 PM EDT Plan of Treatment Health MaintenanceDue DateLast DoneCommentsCOVID-19 Vaccine ( season) , 10/15/2021, 03/25/2021, Additional history existsInfluenza Vaccine (#1), 03/20/2023, 03/27/2022, Additional history tqrlshGdivlymrrcpUhsyexqzxsfh07/16/2021, 07/14/2014Colorectal Cancer Screening DiscontinuedPneumococcal Vaccine: 65+ YselhCeskjtqqn67/12/2023, 11/22/2018, 05/21/2018, Additional history existsCT ColonographyDiscontinuedFIT-DNA DiscontinuedFITDiscontinuedFOBTDiscontinuedSigmoidoscopyDiscontinued Procedures Procedure NamePriorityDate/TimeAssociated DiagnosisCommentsXR ANKLE 3+ VIEWS KYWRQfakbmg60/17/2025 1:49 PM EDT DJD (degenerative joint disease), ankle and foot, left NE ARTHROCENTESIS ASPIR&/INJ MAJOR JT/BURSA W/ZBGltgbpx67/15/2025 9:58 AM EDT Left rotator cuff tear arthropathy Arthritis of left shoulder CTCSAUUVLLNXjfdayq40/16/2021 12:00 PM EDT from Last 3 Months [...] StatusNicholozzy Cowan DPMIMG XR PROCEDURESFinal Result * NE ARTHROCENTESIS ASPIR&/INJ MAJOR JT/BURSA W/US (03/29/2025 9:58 [...] neurovascular intact s/p injection. . ( Codes 40717) Procedure, treatment alternatives, risks and benefits explained, specific risks discussed. Consent was given by the patient. Patient was prepped and draped in the usual sterile fashion. Authorizing ProviderResult TypeResult StatusMattmely Sears PAIN CLINIC/BEDSIDE ORDERABLESFinal Result * Colonoscopy (11/28/2020 12:00 PM EDT)Anatomical RegionLateralityModality EndoscopySpecimen (Source)Anatomical Location / LateralityCollection Method / VolumeCollection TimeReceived Time11/28/2020 12:00 PM EDT Narrative 11/28/2020 12:00 PM EDT PERFORMED AT [facility] LOCATION:[id number] See Scanned Results Procedure Note CONVERSION, GENERIC - 10/29/2022 PERFORMED AT [facility] LOCATION:[id number] See Scanned Results Authorizing ProviderResult TypeResult StatusRenea Barajas DOENDOSCOPY PROCEDURE ORDERABLESFinal Result from Last 3 Months or Most Recently Relevant to Health Maintenance Insurance [place] [place] [id number] Advance Directives NameRelationshipHealthcare Agent RelationshipCommunicationTina PrestChildren's Mercy Northlandpouse Health Care Agent* * * [email or web address] Care Teams Team MemberRelationshipSpecialtyStart DateEnd Date Gerald Low MD [address] [place] [address] PCP - GeneralFamily Krymqogb44/30/24 Peggy Gatica NP Nurse PractitionerFamily Hevzaaao09/29/24
--- OUTSIDE RECORDS SUMMARY | 2025-04-19 08:22 | XMS_ITS ---
Author Organization [facility] Address [address] [place] [address] Care Team Providers Care Radiator Repairer Name Role Phone Tomeka Rosado MD Primary Care Provider [phone] Active Problems ProblemNoted DateDiagnosed DateElevated riquctxx12/07/2025 Assessment & Plan (03/21/2025 3:13 AM EDT): -Troponin 85->112->43 -Concern for ACS -Will initiate IV heparin infusion -Patient was given Plavix as well as therapeutic Lovenox at outside hospital -N.p.o. for possible cardiac cath -Most recent cardiac cath completed on 07/27/2023 showing mild CAD -Cardiology consult Atrial tachycardia, cpnuoqlwiu00/07/2025 Assessment & Plan (03/21/2025 3:13 AM EDT): - Continue beta-ajnet Adrenal adenoma, left03/21/2025 Assessment & Plan (03/21/2025 3:13 AM EDT): -Continue outpatient follow-up with urology Fluid vpuxtmxv90/07/2025 Assessment & Plan (03/21/2025 3:13 AM EDT): - BNP elevated at 2610 at outside hospital -He was given 40 mg of IV Lasix with improvement in shortness of breath -Echocardiogram is pending -Strict intake and output Left ankle hteoxozc30/28/2832Jbbnpamafvy89/01/2025LLQ pain11/28/2024rthritis 05/31/2024History of tobacco abuse05/31/20244285Wofzonmwvau39/17/2024URTI (acute upper respiratory infection)11/16/2023Leukemoid aehnjnbh16 Overview (10/27/2023): Last Assessment & Plan: WBC of 19 k on labs drawn at [facility] - recheck Pneumonia of left lower lobe due to infectious gtpipabl84 Overview (10/27/2023): Last Assessment & Plan: Left [...] that he may benefit from seeing a technology solutions architect for DM, adrenal mass Abnormal nuclear stress test Overview (08/18/2023): Last Assessment & Plan: Nuclear stress test 07/08 - perfusion defect in LAD distribution. Asymptomatic. Instructed to start using ASA. Patient scheduled for [facility] on 07/29/23 No prior hx of CAD Encounter to establish care with new dsorez85 Overview (08/18/2023): Last Assessment & Plan: New Patient, here to establish care. Reviewed medical, surgical and social hx. Reviewed available old records. Reviewed and updated medication list. New Patient for this practice. Was previously established with Dr Barajas but had to switch since [facility]. Near lpczbxj4707/10/2023 Assessment & Plan (08/18/2023 11:07 AM EST): Currently stable, no further episode noted Assessment & Plan (07/10/2023 5:18 PM EST): Recently admitted to [facility] for near syncope, bradycardia, abnormal stress test with NSVT while on treamill. Frequent PVCS NSVT (nonsustained ventricular tachycardia)07/10/2023 Assessment & Plan (08/18/2023 11:06 AM EST): Finish event monitor and f/U with EP Dr Sna Assessment & Plan (07/10/2023 5:19 PM EST): [...] in November. Primary malignant neuroendocrine neoplasm of jhvwpsbo78/10/2023 Overview (08/18/2023): Last Assessment & Plan: Limited [...] repeat CT chest planned in 09/05. Accelerated bnsjoqyoesla55/12/202303/llergic /12/2023 08/18/20235165[place]ueven84alance rzakzsb39enign prostatic hyperplasia with lower urinary tract qmodidzp47 Chronic feiwmihxd16iverticulosis of sigmoid colon02/24/2023 08/18/2023Esophageal ernqhazep18Fall Lqqsxuwdgtwn27Left rotator cuff tear tpaswboprzs83/12/2023 08/18/2023Obesity (BMI 30-39.9)Other chronic pain02/24/2023 08/18/2023ain in right kneeityriasis rosea02/24/2023 08/18/2023Slow transit iotebuuxryrw43Tubular adenoma of colon Type 2 diabetes mellitus with kidney complication, without long-term current use of piqvtah1502/24/2023iabetic polyneuropathy associated with type 2 diabetes wgssohlb44/10/2023Mixed dasyblyblrqspb00/12/2023 08/18/2023 Assessment & Plan (03/21/2025 3:13 AM EDT): - Continue rosuvastatin Assessment & Plan (08/18/2023 11:07 AM EST): Continue crestor 20 mg daily Morbid xostepe75/rimary vkoweplhoiah50/12/202303/10/2023 Overview (08/18/2023): Last Assessment & Plan: Too [...] without complication, without long-term current use of zdiuvvn87/10/2023 Assessment & Plan (03/21/2025 3:13 AM EDT): - ISS, ACHS Neuroendocrine impfiefyo21/10/2023 Assessment & Plan (03/21/2025 3:13 AM EDT): [...] DoseAutomatic EntryManual EntryFluoro Time8 minutes0 minutes8 minutesAir Derlt233 mGy0 cRr449 mGy
--- OUTSIDE RECORDS SUMMARY | 2025-04-19 08:23 | XMS_ITS | Clinical Summary ---
Author Organization [facility] Address [address], [address] [place] [address] Care Team Providers Care Dust Mop Maker Name Role Phone Shaikh MARY Ayala Primary Care Provider [phone] Allergies Active AllergyReactionsCriticalityNoted DateCommentsCiprofloxacinOther (See Comments)11/24/2022 Other Reaction(s): ?change in mental status TIA ErythromycinOther (See Comments)04/28/20232840RrrdvnehjwWwnai62/10/2022 Medications MedicationSigDispense QuantityRefillsLast FilledStart DateEnd DateStatus allopurinol [...] InformationValueDate RecordedSex Assigned at Not on fileLegal BxgOrnt4807/25/2012 2:44 PM ESTGender IdentityNot on fileSexual OrientationNot on file Last Filed Vital Signs Vital SignReadingTime TakenCommentsBlood Cmfefuni703/6807 10:21 AM EDT Kavje519612/20/2024 10:21 AM EDTTemperature--Respiratory Rate--Oxygen Saturation 94%12/20/2024 10:21 AM EDTInhaled Oxygen Concentration--Tvnvnf625.4 kg (228 lb) 12/20/2024 10:21 AM EUVIwbpuh419.8 cm (5' 10 )09/07/2023 10:09 AM EDTBody Mass Index32.71009/07/2023 10:09 AM EDT Plan of Treatment DateTypeDepartmentCare Team (Latest Contact Info)Gvkfnnvvncj02/08/2026 8:30 AM EDTAppointment [place] [phone] 12/26/2025 9:30 AM EDTOffice Visit [facility] on [address] [address] [address] W, FISH FARM LABORER - CHIEF OF ANESTHESIOLOGY [address] [place] [id number] [facility] MaintenanceDue DateLast DoneCommentsDepression Screen 1961Hepatitis C vwbmfc5703/23/1967Shingles vaccine (2 of 3)07/19/2016 05/24/2016, 05/15/2016Annual Wellness Visit (Medicare)07/31/2023Flu vaccine (#1) , 03/20/2023, 03/27/2022, Additional history existsCOVID-19 Vaccine ( - season), 10/15/2021, 03/25/2021, Additional history existsDTaP/Tdap/Td vaccine (3 - Td or Tdap)10/27/2028 10/27/2018, 03/14/2011Pneumococcal 50+ years BcdxrizYowrlxteh69/12/2023, 11/22/2018, 05/21/2018, Additional history existsRespiratory Syncytial Virus (RSV) or age 60 yrs+Nrqqdhqwi32/10/2024GFR test (Diabetes, CKD 3-4, OR last GFR 15-59)Znawnvhjalkz40/26/2025, 11/30/2023Hepatitis A vaccineAged OutNo longer eligible based [...] topic Procedures Procedure NamePriorityDate/TimeAssociated DiagnosisCommentsBUN & CREATININE Jadwmds4512/08/2024 7:50 AM EDT Bilateral renal cysts Adrenal adenoma, left from Last 3 Months or Most Recently Relevant to Health Maintenance Results * (ABNORMAL) BUN & Creatinine (12/08/2024 7:50 AM EDT)ComponentValueRef Range Test MethodAnalysis TimePerformed AtPathologist NixsmdnulVOE44(H)9 - 20 mg/dL 12/08/2024 7:50 AM EDTWKET[facility] LABCreatinine1.070.66 - 1.25 mg/dL 12/08/2024 7:50 AM EDTT[facility] LABEst, Glom Filt Rate72>60 mL/min/1.20k86412/08/2024 7:50 AM EDTWKETTERING HEALTH HAMIL[facility] LABComment: GFR calculated using CKD-EPI (2020) formula. [...] LateralityCollection Method / Volume Collection TimeReceived TimeBlood Cimueh7912/08/2024 7:50 AM EDT12/08/2024 10:38 AM EDT Narrative Authorizing ProviderResult TypeResult StatusKyliang BARN[facility] STRE[facility] HOSPITALEMISTRY ORDERABLESFinal ResultPerforming OrganizationAddressCity/State/ZIP CodePhone Number [place] [phone] from Last 3 Months or Most Recently Relevant to Health Maintenance Insurance Care Teams Team MemberRelationshipSpecialtyStart DateEnd Date Shaikh Ayala MD PCP - General07/31/23
[2025-04-19 08:57] LABS: Anion Gap 13.0; Blood Urea Nitrogen 24.0 mg/dL (7.0-18.0); Calcium 9.3 mg/dL (8.5-10.1); Carbon Dioxide 25.6 mmol/L (21.0-32.0); Chloride 106 mmol/L (98-107); Estimated GFR (African America >60 (>=60 mL/min/1.73m^2); Estimated GFR (Non-African Ame 51 (>=60 mL/min/1.73m^2); Glucose 147 mg/dL (74-106); Potassium 4.6 mmol/L (3.5-5.1); Sodium 140 mmol/L (136-145)
== END 2025-04-19 08:10 | disposition home or self-care (01) ==
LOC: LAB 08:12
PROVIDERS: PCP Nurse Practitioner; Visit Provider Nurse Practitioner Family
DX: I50.22 Chronic systolic (congestive) heart failure (principal)
CPT/HCPCS: 36415; 80048